=== PATIENT | female | born 1955 | race Caucasian/White ===

== ENCOUNTER 2023-08-18 12:41 | Outpatient (OUT) | payer MEDICARE, BC, SELFPAY ==
--- NOTE | 2023-08-18 13:23 | CA_ITS ---
Patient: MARIMAR MCDANIEL Exam Date: 08/18/2023 : 1955 Gender:F Ordering : DR PANCHITO TRINIDAD M.D. Admission #: [id number] Family : DR CHAMP CHRISTENSEN M.D. Order #: [id number] CLICK HERE TO VIEW EXAM ECHOCARDIOGRAM REPORT PROCEDURE: CA ECHO DOPPLER COMPLETE INDICATIONS: Aortic valve stenosis - TAVR, rheumatic mitral valve disease, CABGx4, hypertension, diabetes COMPARISON: None. DESCRIPTION: COMPLETE ECHOCARDIOGRAM Real-time transthoracic echocardiography with 2D, M-mode, spectral and color flow Doppler performed. QUALITY: Technical quality was good. LEFT VENTRICLE: Normal chamber size. Thickened septal wall. LV EF: Global left ventricular systolic function is normal; visually estimated ejection fraction is 55 to 60% DIASTOLIC: Diastolic function is indeterminate. ATRIAL SEPTUM: Visually appears intact. LEFT ATRIUM: Normal chamber size. RIGHT ATRIUM: Normal chamber size. RIGHT VENTRICLE: Normal chamber size. Normal right ventricular systolic function. TRICUSPID VALVE: Normal mobility and thickness. Mild regurgitation. Doppler studies reveal mildly (35-45) elevated right sided pressures. RVSP 40 mmHg MITRAL VALVE: Moderately thickened with decreased mobility. Mild mitral valve stenosis. Severe mitral annular calcification. Mild mitral regurgitation. AORTIC VALVE: TAVR appears well seated in the aortic position with normal Doppler flows. No aortic regurgitation. AORTIC ROOT: Normal diameter and appearance. PULMONIC VALVE: Normal thickness and mobility. No stenosis. Mild regurgitation. PERICARDIUM: No evidence of pericardial effusion. IVC: Collapses with inspirations. CONCLUSION: 1. Global left ventricular systolic function is normal diastolic function is indeterminate; visually estimated ejection fraction of 55 to 60% 2. The right ventricle is normal in size and systolic function 3. Diastolic function is indeterminate 4. Mild tricuspid regurgitation; mildly elevated right ventricular systolic pressure 5. Mild mitral stenosis; mild mitral regurgitation 6. A bioprosthetic (GUTIERREZ) aortic valve is seen with normal Doppler flows; no significant valvular or paravalvular regurgitation 7. Mild pulmonic regurgitation Adult Echocardiography Procedure Report Left Ventricle LVEDD (3.7 - 5.6 cm): 3.66 cm LVESD (2.2 - 4.0 cm): 1.94 cm LVIVS thickness (0.6 - 1.2 cm): 1.05 cm LVPW thickness (0.5 - 1.0 cm): 0.94 cm e': 0.10 m/s E - e': 14.46 LVOT Max Gradient: 6.53 mm[Hg] LVOT Area (cm2): 1.28 m/s Peak Velocity (LVOT): 1.28 m/s Mean Velocity (LVOT): 0.87 m/s LVOT Diameter 1.44 cm Left Atrium LA Volume Index (2D A2C): 34.42 ml/m2 Left Atrium Systolic Dimension: 4.13 cm Mitral Valve MV E to A Ratio: 1.43 Mitral Valve A-Wave Peak Velocity: 0.97 m/s Mitral Valve E-Wave Peak Velocity: 1.38 m/s Right Ventricle Aorta AO Root Diam: 2.95 cm Aortic Valve AoV Area (Peak Morgan): 1.03 cm2, 1.03 cm2 AoV Area (VTI): 1.10 cm2, 1.10 cm2 Peak Velocity(Antegrade Flow): 2.02 m/s Peak Gradient(Antegrade Flow): 16.24 mm[Hg] Mean Velocity(Antegrade Flow): 1.40 m/s Mean Gradient(Antegrade Flow): 8.70 mm[Hg] Velocity Time Integral: 49.31 cm Tricuspid Valve Peak Velocity (Regurgitant Flow): 2.72 m/s, 3.04 m/s Pulmonic Valve Peak Velocity: 1.14 m/s Peak Gradient: 5.33 mm[Hg], 5.15 mm[Hg] Right Atrium Right Atrium Systolic Pressure: 26.62 ml, 26.62 ml Dictated by: Hero Rendon M.D. on 08/18/2023 at 15:40 Approved by: Hero Rendon M.D. on 08/18/2023 at 15:46
== END 2023-08-18 12:42 | disposition home or self-care (01) ==
LOC: CARD 12:47
PROVIDERS: PCP Internal Medicine; Visit Provider Internal Medicine Interventional Cardiology
DX: I08.1 Rheumatic disorders of both mitral and tricuspid valves (principal); I37.1 Nonrheumatic pulmonary valve insufficiency
CPT/HCPCS: 93306

== ENCOUNTER 2023-12-03 11:37 | Outpatient (OUT) | payer MEDICARE, BC, SELFPAY ==
--- NOTE | 2023-12-03 13:45 | CA_ITS ---
[facility] Test Date: 2023-12-03 Pat Name: MARIMAR MCDANIEL Department: Room: - Gender: Female [employer]: [place] [facility] : 1955 Requested By: JAY GILMORE Order Number: [id number] Reading MD: LIZETTE MCGHEE Interpretive Statements Monophasic doppler waveform PVR waveform with delayed upstroke, blunted amplitude and loss of dicrotic notch in Left>right extremity Right: - significant pressure gradient between the thigh and calf cuff - significant pressure gradient between the calf and DP cuff - abnormal BRIDGER and TBI Left: - significant pressure gradient between the brachial and thigh cuff - absent readings of DP and PT indices of the LLE Impression: - elevated right thigh index, consistent with calcified, noncompressible arterial toussaint, which may underestimate the degree of arterial disease present. 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 (right BRIDGER 0.59) - significant left inflow (femoral artery or above) arterial disease with severe, limb threatening hemodynamic impairment of the left lower extremity at rest. (left BRIDGER 0) Electronically Signed On 12-04-2023 7:27:04 EST by LIZETTE MCGHEE
== END 2023-12-03 11:38 | disposition home or self-care (01) ==
LOC: CARD 11:37
PROVIDERS: PCP Internal Medicine
DX: I73.9 Peripheral vascular disease, unspecified (principal)
CPT/HCPCS: 93923

== ENCOUNTER 2024-02-08 12:15 | Observation (INO) | payer MEDICARE, BC, SELFPAY ==
[2024-02-08] VITALS (48 sets, daily range): BP systolic 68–106; BP diastolic 30–62; PULSE 50–65; TEMP 36.4–36.6; O2SAT 91–100; BMI 26.6; BMI 30.1
[2024-02-08 12:20] LABS: Glucometer 81 mg/dL (74-106)
--- OUTSIDE RECORDS SUMMARY | 2024-02-08 12:20 | XMS_ITS | CCD ---
Author Organization [facility] Care Team Providers Care Deputy Court Name Role Phone Geo Mathew Unavailable CHASE AMAYA Attending Unavailable UNKNOWN, PHYSICIAN Referring Unavailable NIK BELL Primary Care Unavailable ANDREW LOONEY Admitting Unavailable MONSE Bell Primary Care Provider MD Geo Mathew Attending Provider DR NIK BELL Primary Care Unavailable SHEPARD ., DR LARISSA Manriquez Admitting Unavailable SHEPARD ., DR LARISSA Manriquez Attending Unavailable SHEPARD ., DR LARISSA Manriquez Consulting Unavailable WEST, DR GORDON Cronin Consulting Unavailable ANNELIESE, DR GERMAIN Villaseñor Consulting Unavailable RODRIGO CARR Consulting Unavailable SHAIKH Meka CALVILLO Consulting Unavailable MISC, DR ROSADO Admitting Unavailable MISC, DR ROSADO Attending Unavailable RAY, DR OAKES Primary Care Unavailable ALEXIS GILMORE Admitting Unavailable ALEXIS GILMORE Attending Unavailable RAY, DR OAKES Primary Care Unavailable ALEXIS GILMORE Consulting Unavailable MOUKAANTONIETTA, DR FLANAGAN Admitting Unavailable MOUKAANTONIETTA, DR FLANAGAN Attending Unavailable RAY, DR OAKES Primary Care Unavailable MOUKAANTONIETTA, DR FLANAGAN Consulting Unavailable RAY, DR OAKES Admitting Unavailable RAY, DR OAKES Attending Unavailable RAY, DR OAKES Primary Care Unavailable RAY, DR OAKES Primary Care Unavailable PAY ., DR DÍAZ Admitting Unavailable PAY ., DR DÍAZ Attending Unavailable ANNELIESE, DR GERMAIN Villaseñor Consulting Unavailable PAY ., DR DÍAZ Consulting Unavailable KLYMCHANTAL Consulting Unavailable RAY, DR OAKES Primary Care Unavailable RODRIGO CARR Consulting Unavailable RODRIGO CARR Admitting Unavailable RODRIGO CARR Attending Unavailable RAY, DR OAKES Primary Care Unavailable PAY ., DR DÍAZ Admitting Unavailable PAY ., DR DÍAZ Attending Unavailable ANNELIESE, DR GERMAIN Villaseñor Consulting Unavailable PAY ., DR DÍAZ Consulting Unavailable BRYAN ., BRETT Consulting Unavailable SuhaSabrina Unavailable MONSE Bell Primary Care Provider MD Geo Mathew Attending Provider Geo Mathew Admitting UnavailGeo Ramirez Attending UnavailNik Argueta Primary Care Unavailable Geo Mathew Admitting UnavailGeo Ramirez Attending UnavailNik Argueta Primary Care Unavailable Nik Bell MD Primary Care Provider NAJENNIFER MUSTAFA Referring Unavailable AURE, ANDREW Admitting Unavailable JC FLETCHER Attending Unavailable ANABELLE RICH Attending Unavailable JC FLETCHER Referring Unavailable JC FLETCHER Referring Unavailable JENNIFER VACA Referring Unavailable ALEXIS GILMORE Attending Unavailable ALEXIS GILMORE Attending Unavailable NIK BELL Attending Unavailable ALEXIS GILMORE Attending Unavailable ALEXIS GILMORE Attending Unavailable Allergies Allergy Classification Reported Allergen(s) Allergy Type Date of Onset Reaction(s) Facility (1 source) [facility] [place] Other (5 sources) Penicillins; Translations: [PENICILLINS] Drug allergy (disorder) 09-20-2009 [facility] Repository (3 sources) Penicillin; Translations: [PENICILLIN] Drug Allergy 07-19-2022 [facility] Repository (1 source) Penicillins Drug allergy (disorder) 01-10-2023 [facility] Repository (2 sources) Penicillins Drug Allergy 10-28-2014 [facility] Medications Current Medications Medication Drug Class(es) Dates Sig (Normalized) Sig (Original) acetaminophen 325 mg / oxyCODONE hydrochloride 5 mg oral tablet (2 sources) Opioid Agonist Start: 12-09-2023 End: 12-14-2023 take 1 tablet by mouth every eight hours for pain oxyCODONE-acetam inophen (Percocet) 5-325 MG tablet Indications: Pain Take 1 tablet by mouth every 8 (eight) hours if needed for severe pain for up to 5 days 15 tablet 0 12/09/2023 12/14/2023 Active amLODIPine 5 mg oral tablet (7 sources) Dihydropyridine Calcium Channel Stuart Start: 01-13-2023 take 5 mg by mouth once daily Amlodipine Active 5 MG PO Daily January 13, 2023 1:00am take 1 tablet by mouth in the mo rning amLODIPine (Norvasc) 10 MG tablet Take 10 mg by mouth in the morning. 0 Active apixaban 5 mg oral tablet (6 sources) Factor Xa Inhibitor Start: 10-01-2023 take 1 tablet by mouth in the morning apixaban (Eliquis) 5 MG tablet Indications: Paroxysmal atrial fibrillation (CMS/HCC) Take 1 tablet (5 mg) by mouth in the morning and 1 tablet (5 mg) before bedtime. 200 tablet 1 10/01/2023 Active Start: 01-13-2023 take 1 tablet by west th twice daily Apixaban (Eliquis) 5 mg tablet Active 5 MG PO Twice daily January 13, 2023 1:00am aspirin 81 mg chewable tablet (6 sources) Platelet Aggregation Inhibitor, Nonsteroidal Anti-inflammatory Drug Start: 01-13-2023 take 81 mg by mouth once daily Aspirin Active 81 MG PO Daily January 13, 2023 1:00am Baby Aspirin Act renu atorvastatin 80 mg oral tablet (7 sources) HMG-CoA Reductase Inhibitor Start: 09-30-2023 take 1 tablet by mouth once daily atorvastatin (Lipitor) 80 MG tablet Indications: Mixed hyperlipidemia (CMS/HCC) TAKE 1 TABLET BY MOUTH EVERY DAY 100 tablet 3 09/30/2023 Active Start: 01-13-2023 take 80 mg by mouth once daily Atorvastatin Active 80 MG PO Daily January 13, 2023 1:00am carvedilol 25 mg oral tablet (6 sources) alpha-Adrenergic Stuart, beta-Adrenergic Stuart Start: 01-28-2023 take 1 tablet by mouth every twelve hours carvedilol (Coreg) 25 MG tablet Take 25 mg by mouth every 12 (twelve) hours. 0 01/28/2023 Active Start: 01-13-2023 take 25 mg by mouth twice yarely y Carvedilol Active 25 MG PO Twice daily January 13, 2023 1:00am citalopram 20 mg oral tablet (9 sources) Serotonin Reuptake Inhibitor Start: 09-16-2023 take 1 tablet by mouth once daily citalopram (CeleXA) 20 MG tablet Indications: Generalized anxiety disorder (CMS/HCC) TAKE 1 TABLET BY MOUTH ONCE DAILY 100 tablet 2 09/16/2023 Active Start: 01-13-2023 take 20 mg by mouth once daily Citalopram Active 20 MG PO Daily January 13, 2023 1:00am take 1 tablet by west th in the morning citalopram (CeleXA) 40 MG tablet Take 40 mg by mouth in the morning. 0 Active take 0.5 tablet by m outh every twenty-four hours Citalopram Hydrobromide 40 MG 0.5 tablet Orally Once a day Active dicyclomine hydrochloride 20 mg oral tablet (7 sources) Anticholinergic Start: 01-13-2023 take 20 mg by mouth three times daily Dicyclomine Active 20 MG PO Three times daily January 13, 2023 1:00am take 1 tablet by west th four times daily as needed dicyclomine (Bentyl) 20 MG tablet Take 2 0 mg by mouth 4 (four) times a day as needed. 0 Active ezetimibe 10 mg oral tablet (2 sources) Dietary Cholesterol Absorption Inhibitor take 1 tablet by mouth in the morning ezetimibe (Zetia) 10 MG tablet Take 10 mg by mouth in the morning. 0 Active ferrous sulfate 140 mg extended release oral tablet (6 sources) Start: 01-13-2023 take 140 mg by mouth once daily Ferrous Sulfate Active 140 MG PO Daily January 13, 2023 1:00am ferrous sulfate 325 (65 Fe) MG tablet Take 325 mg by mouth in the morning and 325 mg at noon and 325 mg in the evening. Take with meals. 0 Active Ferrous Sulfate Active furosemide 40 mg oral tablet (6 sources) Loop Diuretic Start: 01-13-2023 take 40 mg by mouth once daily Furosemide Active 40 MG PO Daily January 13, 2023 1:00am gabapentin 300 mg oral capsule (7 sources) Anti-epileptic Agent Start: 01-13-2023 take 300 mg by mouth once daily Gabapentin Active 300 MG PO Daily January 13, 2023 1:00am hydrALAZINE hydrochloride 100 mg oral tablet (4 sources) Arteriolar Vasodilator Start: 01-13-2023 take 100 mg by mouth twice daily Hydralazine Active 100 MG PO Twice daily January 13, 2023 1:00am 3 ml insulin glargine 100 unt/ml pen injector (5 sources) Insulin Analog Start: 11-14-2023 insulin glargi ne (Basaglar KwikPen) 100 UNIT/ML pen Indications: Type 2 diabetes mellitus with hyperglycemia, unspecified whether half-way insulin use (CMS/HCC) INJECT 86 UNITS UNDER THE SKIN AT AT BEDTIME 75 mL 3 11/14/2023 Active insulin glargine (Semglee) 100 UNIT/ML injection Inject 86 Units under the skin at bedtime. 0 Active Semglee 100 UNIT /ML as directed Subcutaneous Not-Taking 3 ml insulin, regular, human 100 unt/ml pen injector (7 sources) Insulin Start: 01-13-2023 inject 9 [IU] by subcutaneous injection three times daily Insulin Regular Human (Novolin R Flexpen) 100 unit/mL (3 mL) Insulin Pen Active 9 UNIT SUBCUT Three times daily January 13, 2023 1:00am Start: 10-24-2022 NovoLIN R 100 UNIT/ML injection Inject 20 mL under the skin in the morning. 0 10/24/2022 Active NovoLIN R 100 UN IT/ML as directed Injection Active lisinopril 20 mg oral tablet (7 sources) Angiotensin Converting Enzyme Inhibitor Start: 10-01-2023 take 1 tablet by mouth in the morning lisinopril 20 MG tablet Indications: Benign essential hypertension (CMS/HCC) Take 1 tablet (20 mg) by mouth in the morning. 100 tablet 3 10/01/2023 Active Start: 01-13-2023 take 20 mg by mouth once daily Lisinopril Active 20 MG PO Daily January 13, 2023 1:00am Ozempic (3 sources) Ozempic Active Ozempic, 1 MG/DOSE, 4 MG/3ML solution pen-injector (2 sources) inject 1 mg by subcutaneous injection every week Ozempic, 1 MG/DOSE, 4 MG/3ML solution pen-injector Inject 1 mg under the skin 1 (one) time per week. 0 Active microencapsulated potassium chloride 20 meq extended release oral tablet (7 sources) Start: 06-04-2023 take 1 tablet by mouth in the morning potassium chloride CR (Klor-Con M20) 20 MEQ ER tablet Indications: Benign essential hypertension (CMS/HCC) Take 1 tablet (20 mEq) by mouth in the morning. 90 tablet 0 06/04/2023 Active Start: 01-13-2023 take 20 mEq by mouth once yarely y Potassium Chloride Active 20 MEQ PO Daily January 13, 2023 1:00am Semaglutide (2 sources) Start: 01-13-2023 inject 1 mg by subcutaneous injection every week Semaglutide (Ozempic) 1 mg/dose (4 mg/3 mL) pen injector Active 1 MG SUBCUT every week January 13, 2023 1:00am Start: 01-13-2023 inject 1 mg by subcu taneous injection every week Semaglutide (Ozempic) 1 mg/dose (4 mg/3 mL) pen injector Active 1 MG SUBCUT every week January 13, 2023 12:00am spironolactone 25 mg oral tablet (5 sources) Aldosterone Antagonist take 1 tablet by mouth in the morning spironolactone (Aldactone) 25 MG tablet Take 25 mg by mouth in the morning. 0 Active Completed/Discontinued Medications Medication Drug Class(es) Dates Sig (Normalized) Sig (Original) Albuterol Sulfate (2.5 MG/ 3 ML) 2.5 MG/3ML 0.083% Nebulization Solution (3 sources) Albuterol Sulfat e (2.5 MG/ 3 ML) 2.5 MG/3ML 0.083% Nebulization Solution 3ml Inhalation 4 times a day Not-Taking Albuterol Sulfat e (2.5 MG/ 3 ML) 2.5 MG/3ML 0.083% Nebulization Solution 3ml Inhalation 4 times a day Active clopidogrel 75 mg oral tablet (3 sources) P2Y12 Platelet Inhibitor take 1 tablet by mouth every twenty-four hours Clopidogrel Bisulfate 75 MG 1 tablet Orally Once a day Not-Taking J-[id number]-[id number] 2 3-35-2 MG (3 sources) take 1 tablet by mouth twice daily V-Bilwmjihuqcl-J7-[id number] 2 3-35-2 MG 1 tablet Orally Twice a day Not-Taking LORazepam 0.5 mg oral tablet (3 sources) Benzodiazepine take 1 tablet by mouth every twenty-four hours LORazepam 0.5 MG 1 tablet at bedtime as needed Orally Once a day Not-Taking metoprolol tartrate 100 mg oral tablet (3 sources) beta-Adrenergic Stuart take 1 tablet by mouth every twelve hours Metoprolol Tartrate 100 MG 1 tablet with food Orally Twice a day Not-Taking ondansetron 4 mg oral tablet (3 sources) Serotonin-3 Receptor Antagonist take 1 tablet by mouth every twenty-four hours Ondansetron HCl 4 MG 1 tablet Orally Once a day Not-Taking Semglee 100 UNIT/ML (2 sources) Semglee 100 UNIT /ML as directed Subcutaneous Not-Taking WHEAT DEXTRIN (3 sources) Benefiber - as directed Orally Not-Taking Benefiber - as d irected Orally Active Problems Active Problems Problem Classification Problem Date Documented Da te Episodic/Chronic Acute myocardial infarction (2 sources) Non-ST elevation (NSTEMI) myocardial infarction; Translations: [NON-ST ELEVATION MYOCARDIAL INFARCT] Onset: 2 Chronic Anxiety disorders (2 sources) Generalized anxiety disorder; Translations: [Generalized anxiety disorder] Onset: 3 06-04-2023 Chronic Asthma (4 sources) Asthmatic bronchitis; Translations: [Unspecified asthma, uncomplicated] Onset: 8 06-24-2023 Chronic Cardiac dysrhythmias (3 sources) Unspecified atrial fibrillation; Translations: [Paroxysmal atrial fibrillation] Onset: 2 06-04-2023 Chronic Chronic ulcer of skin (7 sources) Non-pressure chronic ulcer of other part of left foot limited to breakdown of skin; Translations: [Non-pressure chronic ulcer of other part of left foot with fat layer exposed] Onset: 3 Chronic Complication of device; implant or graft (2 sources) Arteriosclerosis of arterial coronary artery bypass graft; Translations: [Atherosclerosis of coronary artery bypass graft(s) without angina pectoris] Onset: 3 06-24-2023 Chronic Congestive heart failure; nonhypertensive (3 sources) Acute combined systolic (congestive) and diastolic (congestive) heart failure; Translations: [Acute combined systolic and diastolic heart failure] Onset: 2 06-24-2023 Chronic Coronary atherosclerosis and other heart disease (3 sources) Atherosclerotic heart disease of [place] coronary artery without angina pectoris; Translations: [Coronary atherosclerosis] Onset: 3 06-04-2023 Chronic Coronary atherosclerosis and other heart disease (2 sources) Coronary atherosclerosis and other heart disease; Translations: [Atherosclerosis of [place] arteries of extremities with intermittent claudication, left leg] Onset: 3 Diabetes mellitus with complications (18 sources) Diabetes mellitus due to underlying condition with foot ulcer; Translations: [Type 2 diabetes mellitus with hyperglycemia] Onset: 1 Chronic Diabetes mellitus without complication (3 sources) Type 2 diabetes mellitus without complications; Translations: [Type 2 diabetes mellitus without complication] Onset: 3 06-24-2023 Chronic Disorders of lipid metabolism (3 sources) Pure hypercholesterolemia, unspecified; Translations: [Mixed hyperlipidemia] Onset: 2 06-04-2023 Chronic Diverticulosis and diverticulitis (2 sources) Diverticulosis of colon; Translations: [Diverticulosis of large intestine without perforation or abscess without bleeding] Onset: 0 06-04-2023 Chronic E Codes: Fall (1 source) Unspecified fall, initial encounter; Translations: [UNSPECIFIED FALL INITIAL ENCOUNTER] Onset: 3 Episodic Esophageal disorders (1 source) Gastro-esophageal reflux disease without esophagitis; Translations: [GERD WITHOUT ESOPHAGITIS] Onset: 2 Chronic Essential hypertension (3 sources) Essential (primary) hypertension; Translations: [Benign essential hypertension] Onset: 3 06-04-2023 Chronic Fluid and electrolyte disorders (2 sources) Hypo-osmolality and hyponatremia; Translations: [Hypo-osmolality and hyponatremia] Onset: 4 Episodic Gangrene (4 sources) Gangrenous disorder; Translations: [Gangrene, not elsewhere classified] Onset: 3 12-11-2023 Episodic Gastritis and duodenitis (2 sources) Atrophic gastritis; Translations: [Chronic atrophic gastritis without bleeding] Onset: 5 06-24-2023 Chronic Gout and other crystal arthropathies (2 sources) Chondrocalcinosis; Translations: [Other chondrocalcinosis, unspecified site] Onset: 3 06-24-2023 Chronic Headache; including migraine (2 sources) Migraine; Translations: [Migraine, unspecified, not intractable, without status migrainosus] Onset: 0 06-24-2023 Chronic Headache; including migraine (3 sources) Headache; including migraine; Translations: [HEADACHE UNSPECIFIED] Onset: 3 Heart valve disorders (7 sources) Nonrheumatic aortic (valve) stenosis; Translations: [Aortic stenosis, non-rheumatic ] Onset: 9 Chronic Hypertension with complications and secondary hypertension (1 source) Hypertensive heart disease with heart failure; Translations: [HTN HEART DISEASE W/HEART FAIL] Onset: 2 Chronic Infective arthritis and osteomyelitis (except that caused by tuberculosis or sexually transmitted disease) (4 sources) Infection of bone; Translations: [Osteomyelitis, unspecified] Onset: 3 06-24-2023 Chronic Menopausal disorders (2 sources) Decreased estrogen level; Translations: [Other primary ovarian failure] Onset: 7 06-24-2023 Chronic Osteoarthritis (1 source) Unspecified osteoarthritis, unspecified site; Translations: [UNSPECIFIED OSTEOARTHRITIS UNS SITE] Onset: 2 Chronic Other aftercare (1 source) [facility] (current) use of anticoagulants; Translations: [LEAD SYSTEMS ARCHITECT CURRNT USE ANTICOAGULANTS] Onset: 3 Episodic Other aftercare (1 source) Other half-way (current) drug therapy; Translations: [OTH GROUP HOME CURRENT DRUG THERAPY] Onset: 3 Episodic Other aftercare (1 source) [employer] (current) use of antithrombotics/antipl atelets; Translations: [LEAD SYSTEMS ARCHITECT ANTITHROMBOT/ANTIPLATL ETS] Onset: 3 Episodic Other aftercare (1 source) [facility] (current) use of insulin; Translations: [GROUP HOME CURRENT USE OF INSULIN] Onset: 3 Episodic Other aftercare (1 source) [facility] (current) use of aspirin; Translations: [GROUP HOME CURRENT USE OF ASPIRIN] Onset: 3 Episodic Other gastrointestinal disorders (2 sources) Irritable bowel syndrome; Translations: [Irritable bowel syndrome without diarrhea] Onset: 3 06-04-2023 Chronic Other injuries and conditions due to external causes (1 source) Other specified injuries of head, initial encounter; Translations: [OTH SPEC INJURIES HEAD INITIAL ENC] Onset: 3 Episodic Other nervous system disorders (2 sources) Anesthesia of skin; Translations: [Anesthesia of skin] Onset: 4 Episodic Other non-traumatic joint disorders (1 source) Pain in left wrist; Translations: [PAIN IN LEFT WRIST] Onset: 3 Episodic Peripheral and visceral atherosclerosis (16 sources) Peripheral vascular disease; Translations: [Peripheral vascular disease, unspecified] Onset: 1 Resolved: 1 Chronic Screening and history of mental health and substance abuse codes (1 source) Personal history of nicotine dependence; Translations: [PERSONAL HISTORY OF NICOTINE DEPEND] Onset: 3 Episodic Spondylosis; intervertebral disc disorders; other back problems (1 source) Pain in thoracic spine; Translations: [PAIN IN THORACIC SPINE] Onset: 3 Episodic Sprains and strains (2 sources) Unspecified sprain of left wrist, initial encounter; Translations: [Strain of muscle and tendon of back wall of thorax, initial encounter] Onset: 3 Episodic Unclassified (4 sources) CONTACT W/AND (SUSP) EXPOS COVID-19; Translations: [CONTACT W/AND (SUSP) EXPOS COVID-19] Onset: 2 Unclassified (2 sources) Hospital Follow-up; Translations: [Hospital Follow-up] Onset: 4 Viral infection (1 source) Disease caused by 2019-nCoV; Translations: [UNVACCINATED COVID 19] Onset: 2 Past or Other Problems Problem Classification Problem Date Documented Date Episodic/Chronic Bacterial infection; unspecified site (3 sources) Klebsiella pneumoniae [K. pneumoniae] as the cause of diseases classified elsewhere; Translations: [Staphylococcal infectious disease] Onset: 03-17-2013 06-24-2023 Episodic Complication of device; implant or graft (2 sources) Mechanical complication of musculoskeletal implant; Translations: [Other mechanical complication of other internal orthopedic devices, implants and grafts, initial encounter] Onset: 02-23-2013 06-24-2023 Episodic Complications of surgical procedures or medical care (2 sources) Dehiscence of surgical wound; Translations: [Disruption of external operation (surgical) wound, not elsewhere classified, initial encounter] Onset: 04-15-2013 06-24-2023 Episodic Coronary atherosclerosis and other heart disease (1 source) Presence of aortocoronary bypass graft; Translations: [PRESENCE AORTOCORONARY BYPASS GRAFT] Onset: 07-02-2022 Episodic Deficiency and other anemia (1 source) Iron deficiency anemia, unspecified; Translations: [IRON DEFICIENCY ANEMIA UNSPECIFIED] Onset: 07-10-2022 Episodic Nonspecific chest pain (5 sources) Chest pain, unspecified; Translations: [Chest pain] Onset: 12-29-2012 Episodic Other bone disease and musculoskeletal deformities (2 sources) Osteopenia; Translations: [Other specified disorders of bone density and structure, unspecified site] Onset: 06-04-2023 06-04-2023 Episodic Other connective tissue disease (2 sources) Pain in limb; Translations: [Pain in unspecified limb] Onset: 03-29-2010 06-24-2023 Episodic Other lower respiratory disease (3 sources) Shortness of breath; Translations: [SHORTNESS OF BREATH] Onset: 07-04-2022 Episodic Other lower respiratory disease (1 source) Hypoxemia; Translations: [HYPOXEMIA] Onset: 07-10-2022 Episodic Other nutritional; endocrine; and metabolic disorders (2 sources) Overweight; Translations: [Overweight] Onset: 06-23-2013 06-24-2023 Episodic Residual codes; unclassified (1 source) Patient's intentional underdosing of medication regimen for other reason; Translations: [PT INTENT UNDERDOS MED OTH REASON] Onset: 07-02-2022 Episodic Unclassified (1 source) CONTACT W/AND (SUSP) EXPOS COVID-19; Translations: [CONTACT W/AND (SUSP) EXPOS COVID-19] Onset: 07-21-2022 Urinary tract infections (1 source) Urinary tract infection, site not specified; Translations: [UTI SITE NOT SPECIFIED] Onset: 07-10-2022 Episodic Results Test Name Value Interpretation Reference Range Facility 36on 01-01-2024 36 Needs appt [facility] Follow-Upon 12-19-2023 Follow-Up [id number] Pancho Patel 1955 F Date Provider Department Center 12/19/2023 ANABELLE CLAUDIO [facility] Family History Problem Relation Age of Onset Diabetes Mother Cancer Mother Heart disease Father Alcohol abuse Brother Diabetes Brother Family Status - Relation Status Age at Mother Father Brother Level of Service:35961 [place] OFFICE/OUTPATIENT ESTABLISHED LOW MDM 20 MIN Reason for Visit and Comments: Hospital Follow-up [832] - 12/04/23 impatient PAD [facility] 30on 12-05-2023 30 Daily Case Managemen t Update Multidisciplinary rounds have been completed. Barriers to Discharge: ER Admit s/p abnormal ankle-brachial index with c/o numbness/tingling. s/p Angiogram on 12-04. BRIDGER ordered; pending. Will need PT OT order when medically cleared. From Home. Diet: Dietary Orders (From admission, onward) Start Ordered 12/04/23 1727 Regular Diet Heart Healthy/HTN, CABG,Stroke, (2gNA, low fat, low cholesterol) Diet effective now Question Answer Comment Room Service? Yes Fat restriction: Heart Healthy/HTN, CABG,Stroke, (2gNA, low fat, low cholesterol) 12/04/23 172 Physician Expected Discharge Date: 12/06/2023 Discharge Delays: PT Six Click Score: 13 OT Six Click Score: PT Recommendations: OT Recommendations: New Consults: Consult Orders (From admission, onward) Start Ordered 12/03/23 1813 Inpatient consult to Hospitalist Once Specialty: Internal Medicine Provider: (Not yet assigned) Question Answer Comment Consulting Group HOSPITALIST (ADMIT/FLOAT) Reason for Consult? pulseless LLE Level of Consultation Consultation Only 12/03/23 1812 Ancillary Consults (From admission, onward) Start Ordered 12/05/23 0236 Inpatient consult to Vascular Wound Care Once Provider: (Not yet assigned) Question Answer Comment Consulting Group WOUND CARE Reason for Consult? ball of foot and under toe wounds 12/05/23 0236 Normal [facility] BASIC METABOLIC PANELon 11-11 Anion gap [Moles/Vol] 7 mmol/L Normal 7-20 [facility] Comment on above: Performed By: #### L AB15 #### [facility] (BEAKER) [address] [place] [address] Calcium [Mass/Vol] 8.6 mg/dL Normal 8.6-10.3 [facility] Comment on above: Performed By: #### L AB15 #### [facility] (BEAKER) [address] [place] [address] Chloride [Moles/Vol] 105 mmol/L Normal 98-107 [facility] Comment on above: Performed By: #### L AB15 #### [facility] ([facility] [address] [place] [address] CO2 [Moles/Vol] 27 mmol/L Normal 21-31 [facility] Comment on above: Performed By: #### L AB15 #### [facility] ([facility]) [address] [place] [address] Creatinine [Mass/Vol] 0.97 mg/dL Normal 0.60-1.20 [facility] Comment on above: Performed By: #### L [id number] #### [facility] ([facility]) [address] [place] [address] GLOMERULAR FILTRATION RATE ML/MIN/1.73 SQ M.PREDICTED 63.3 mL/min/1.73m*2 Normal >60.0 [facility] Comment on above: Result Comment: The [facility]???s estimated glomerular filtration rate (eGFR) will no longer include consideration of race in its calculation. The National Kidney Foundation???s eGFR Task Force developed new recommendations for the estimation of the glomerular filtration rate in the [place] They recommend immediate implementation of the new equation refit without the race variable in all laboratories because the calculation does not include race. In addition to not including race in the calculation and reporting, it included diversity in its development, and has acceptable performance characteristics and potential consequences that do not disproportionately affect any one group of individuals. Performed By: #### L [id number] #### [facility] ([facility]) [address] [place] [address] Glucose [Mass/Vol] 192 mg/dL High 70-100 [facility] Comment on above: Performed By: #### L [id number] #### [facility] ([facility]) [address] [place] [address] Potassium [Moles/Vol] 4.1 mmol/L Normal 3.5-5.1 [facility] Comment on above: Performed By: #### L [id number] #### [facility] ([facility]) [address] [place] [address] Sodium [Moles/Vol] 135 mmol/L Low 136-145 [facility] Comment on above: Performed By: #### L [id number] #### [facility] ([facility]) [address] [place] [address] Urea nitrogen [Mass/Vol] 29 mg/dL High 7-25 [facility] Comment on above: Performed By: #### L [id number] #### [facility] ([facility]) [address] [place] [address] UREA NITROGEN/CREATININE (MASS RATIO) IN SER/PLAS 29.9 Normal [facility] Comment on above: Performed By: #### L [id number] #### [facility] ([facility]) [address] [place] [address] CBCon 12-05-2023 Erythrocyte distribution width (RBC) [Ratio] 13.5 % Normal 11.5-15.0 [facility] Comment on above: Performed By: #### L [id number] #### [facility] ([facility]) [address] [place] [address] ERYTHROCYTE MEAN CORPUSCULAR HEMOGLOBIN CONCENTRATION (G/DL) BY AUTOMATED 32.3 g/dL Normal 32.0-35.0 [facility] Comment on above: Performed By: #### L [id number] #### [facility] ([facility]) [address] [place] [address] Hematocrit (Bld) [Volume fraction] 30.0 % Low 36.0-48.0 [facility] Comment on above: Performed By: #### L [id number] #### [facility] ([facility]) [address] [place] [address] Hemoglobin (Bld) [Mass/Vol] 9.7 g/dL Low 12.0-15.0 [facility] Comment on above: Performed By: #### L [id number] #### [facility] ([facility]) [address] [facility] [place] [address] MCH (RBC) [Entitic mass] 28.6 pg Normal 27.0-33.0 [facility] Comment on above: Performed By: #### L [id number] #### [facility] ([facility]) [address] [place] [address] MCV (RBC) [Entitic vol] 88.5 fL Normal 82.0-98.0 [facility] Comment on above: Performed By: #### L [id number] #### [facility] ([facility]) [address] [place] [address] PLATELETS (10*3/UL) IN BLOOD AUTOMATED COUNT 182 10*3/uL Normal 150-400 [facility] Comment on above: Performed By: #### L [id number] #### [facility] ([facility]) [address] [place] [address] RBC (Bld) [#/Vol] 3.39 10*6/uL Low 3.80-5.00 [facility] Comment on above: Performed By: #### L [id number] #### [facility] ([facility]) [address] [place] [address] WBC (Bld) [#/Vol] 8.35 10*3/uL Normal 4.00-10.60 [facility] Comment on above: Performed By: #### L [id number] #### [facility] ([facility]) [address] [place] [address] NURSNOTEon 12-05-2023 NURSNOTE Patient IV removed a nd wheeled out to husbands truck at the main enterance Normal [facility] POCT GLUCOSE METER UNSOLICIT ED RESULTSon 12-05-2023 Glucose [Mass/Vol] 172 mg/dL High 70-105 [facility] Comment on above: Order Comment: Waive d Testing in the ED is performed under the ED CLIA certificate #[id number]. Result Comment: abantwan rbo Performed By: #### L [id number] #### [facility] ([facility]) [address] [place] [address] Glucose [Mass/Vol] 194 mg/dL High 70-105 [facility] Comment on above: Order Comment: Waive d Testing in the ED is performed under the ED CLIA certificate #[id number]. Result Comment: kret tin Performed By: #### L [id number] #### [facility] ([facility]) [address] [place] [address] APTTon 12-04-2023 ACTIVATED PARTIAL THROMBOPLASTIN TIME IN PPP BY COAGULATION ASSAY 152.0 Seconds Critically high 25.0-35.0 [facility] Comment on above: Result Comment: Clin ical significance of the APTT is questionable in the presence of heparin. Performed By: #### L [id number] #### [facility] ([facility]) [address] [place] [address] ACTIVATED PARTIAL THROMBOPLASTIN TIME IN PPP BY COAGULATION ASSAY 140.0 Seconds Critically high 25.0-35.0 [facility] Comment on above: Result Comment: Clin ical significance of the APTT is questionable in the presence of heparin. Performed By: #### L [id number] #### [facility] ([facility]) [address] [place] [address] BASIC METABOLIC PANELon 11-11 Anion gap [Moles/Vol] 10 mmol/L Normal 7-20 [facility] Comment on above: Performed By: #### L [id number] #### [facility] ([facility]) [address] [place] [address] Calcium [Mass/Vol] 9.6 mg/dL Normal 8.6-10.3 [facility] Comment on above: Performed By: #### L [id number] #### [facility] ([facility]) [address] [place] [address] Chloride [Moles/Vol] 101 mmol/L Normal 98-107 [facility] Comment on above: Performed By: #### L [id number] #### [facility] ([facility]) [address] [place] [address] CO2 [Moles/Vol] 24 mmol/L Normal 21-31 [facility] Comment on above: Performed By: #### L [id number] #### [facility] ([facility]) [address] [place] [address] Creatinine [Mass/Vol] 1.32 mg/dL High 0.60-1.20 [facility] Comment on above: Performed By: #### L [id number] #### [facility] ([facility]) [address] [place] [address] GLOMERULAR FILTRATION RATE ML/MIN/1.73 SQ M.PREDICTED 43.7 mL/min/1.73m*2 Low >60.0 [facility] Comment on above: Result Comment: The [facility]???s estimated glomerular filtration rate (eGFR) will no longer include consideration of race in its calculation. The National Kidney Foundation???s eGFR Task Force developed new recommendations for the estimation of the glomerular filtration rate in the [place] They recommend immediate implementation of the new equation refit without the race variable in all laboratories because the calculation does not include race. In addition to not including race in the calculation and reporting, it included diversity in its development, and has acceptable performance characteristics and potential consequences that do not disproportionately affect any one group of individuals. Performed By: #### L [id number] #### [facility] ([facility]) [address] [place] [address] Glucose [Mass/Vol] 268 mg/dL High 70-100 [facility] Comment on above: Performed By: #### L [id number] #### [facility] ([facility]) [address] [place] [address] Potassium [Moles/Vol] 4.5 mmol/L Normal 3.5-5.1 [facility] Comment on above: Performed By: #### L [id number] #### [facility] ([facility]) [address] [place] [address] Sodium [Moles/Vol] 130 mmol/L Low 136-145 [facility] Comment on above: Performed By: #### L [id number] #### [facility] ([facility]) [address] [place] [address] Urea nitrogen [Mass/Vol] 42 mg/dL High 7- [facility] Comment on above: Performed By: #### L [id number] #### [facility] ([facility]) [address] [place] [address] UREA NITROGEN/CREATININE (MASS RATIO) IN SER/PLAS 31.8 Normal [facility] Comment on above: Performed By: #### L [id number] #### [facility] ([facility]) [address] [place] [address] CBC WITH AUTO DIFFERENTIALon 12-04-2023 Basophils (Bld) [#/Vol] 0.04 10*3/uL Normal 0.00-0.20 [facility] Comment on above: Performed By: #### L [id number] #### [facility] ([facility]) [address] [place] [address] Basophils/100 WBC (Bld) 0.4 % Normal 0.0-1.0 [facility] Comment on above: Performed By: #### L [id number] #### [facility] ([facility]) [address] [place] [address] Eosinophils (Bld) [#/Vol] 0.18 10*3/uL Normal 0.00-0.50 [facility] Comment on above: Performed By: #### L [id number] #### [facility] ([facility]) [address] [place] [address] Eosinophils/100 WBC (Bld) 1.9 % Normal 0.0-6.0 [facility] Comment on above: Performed By: #### L [id number] #### [facility] ([facility]) [address] [place] [address] Erythrocyte distribution width (RBC) [Ratio] 13.4 % Normal 11.5-15.0 [facility] Comment on above: Performed By: #### L [id number] #### [facility] ([facility]) [address] [place] [address] ERYTHROCYTE MEAN CORPUSCULAR HEMOGLOBIN CONCENTRATION (G/DL) BY AUTOMATED 33.3 g/dL Normal 32.0-35.0 [facility] Comment on above: Performed By: #### L [id number] #### [facility] ([facility]) [address] [place] [address] Hematocrit (Bld) [Volume fraction] 30.6 % Low 36.0-48.0 [facility] Comment on above: Performed By: #### L [id number] #### [facility] ([facility]) [address] [place] [address] Hemoglobin (Bld) [Mass/Vol] 10.2 g/dL Low 12.0-15.0 [facility] Comment on above: Performed By: #### L [id number] #### [facility] ([facility]) [address] [facility] [place] [address] Immature granulocytes (Bld) [#/Vol] 0.02 10*3/uL Normal 0.00-0.20 [facility] Comment on above: Performed By: #### L [id number] #### [facility] ([facility]) [address] [place] [address] Immature granulocytes/100 WBC (Bld) 0.2 % Normal 0.0-1.0 [facility] Comment on above: Performed By: #### L [id number] #### [facility] ([facility]) [address] [place] [address] Lymphocytes (Bld) [#/Vol] 3.07 10*3/uL Normal 1.20-4.00 [facility] Comment on above: Performed By: #### L [id number] #### [facility] ([facility]) [address] [place] [address] Lymphocytes/100 WBC (Bld) 32.0 % Normal 20.0-45.0 [facility] Comment on above: Performed By: #### L [id number] #### [facility] ([facility]) [address] [place] [address] MCH (RBC) [Entitic mass] 29.1 pg Normal 27.0-33.0 [facility] Comment on above: Performed By: #### L [id number] #### [facility] ([facility]) [address] [address] MCV (RBC) [Entitic vol] 87.2 fL Normal 82.0-98.0 [facility] Comment on above: Performed By: #### L [id number] #### [facility] ([facility]) [address] [address] Monocytes (Bld) [#/Vol] 0.96 10*3/uL Normal 0.10-1.00 [facility] Comment on above: Performed By: #### L [id number] #### [facility] ([facility]) [address] [address] Monocytes/100 WBC (Bld) 10.0 % Normal 5.0-12.0 [facility] Comment on above: Performed By: #### L [id number] #### [facility] ([facility]) [address] [place] [address] Neutrophils (Bld) [#/Vol] 5.33 10*3/uL Normal 1.60-7.60 [facility] Comment on above: Performed By: #### L [id number] #### [facility] ([facility]) [address] [place] [address] Neutrophils/100 WBC (Bld) 55.5 % Normal 40.0-72.0 [facility] Comment on above: Performed By: #### L [id number] #### [facility] ([facility]) [address] [place] [address] NRBC (PER 100 WBCS) BY AUTOMATED COUNT 0.0 % Normal 0 [facility] Comment on above: Performed By: #### L [id number] #### [facility] ([facility]) [address] [place] [address] PLATELETS (10*3/UL) IN BLOOD AUTOMATED COUNT 207 10*3/uL Normal 150-400 [facility] Comment on above: Performed By: #### L [id number] #### [facility] ([facility]) [address] [place] [address] RBC (Bld) [#/Vol] 3.51 10*6/uL Low 3.80-5.00 [facility] Comment on above: Performed By: #### L [id number] #### [facility] ([facility]) [address] [place] [address] WBC (Bld) [#/Vol] 9.60 10*3/uL Normal 4.00-10.60 [facility] Comment on above: Performed By: #### L [id number] #### [facility] ([facility]) [address] [place] [address] CONSULTon 12-04-2023 CONSULT -- Attestation signed by Jennifer Vaca MD at 12/04/2023 1:00 PM Pt with severe pain left leg Has no pulses History of PVD Plan for angiogram and intervention Reason For Consult left leg critical limb ischemia Referring Provider: [facility] emergency department History Of Present Illness Marimar Patel is a 68 y.o. female presenting with Leg Pain. Patient is known to Dr. Betts who TAVR in September 2022. 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 At that time it was noted she also had total occlusion of the distal left SFA with reconstitution of the popliteal via profunda and three-vessel runoff to the lower extremity on the left. Cardiac history also significant for coronary artery bypass graft x 4 with 3 of the 4 grafts patent. She also has a history of A-fib on Eliquis, hypertension, and hyperlipidemia. 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 It is worse at night. She also reports significant pain in the toes. Past Medical History She has a past medical history of A-fib ([facility]), Aortic valve stenosis, Coronary artery disease, Diabetes mellitus ([facility]), Hypertension, and Peripheral vascular disease ([facility]). Surgical History She has a past surgical history that includes CTA chest w and/or wo IV contrast (06/29/2022); Hysterectomy; CTA chest w and/or wo IV contrast (07/12/2022); CTA abdomen pelvis w and/or wo IV contrast (07/12/2022); Cardiac surgery; Colon surgery; Appendectomy; Cholecystectomy; Hernia repair; and Eye surgery (Left). Family History Family History Problem Relation Name Age of Onset Diabetes Mother Cancer Mother Heart disease Father Alcohol abuse Brother Diabetes Brother Social History She reports that she has quit smoking. Her smoking use included cigarettes. She has never used smokeless tobacco. She reports that she does not drink alcohol and does not use drugs. Allergies Penicillin and Penicillins Medications (Not in a hospital admission) Active Hospital Medications Medication Dose Route Frequency Last Admin acetaminophen 650 mg oral q6h PRN atorvastatin 80 mg oral Daily calcium carbonate 500 mg oral Once carvedilol 25 mg oral BID with meals glucose 24 g oral q15 min PRN Or dextrose 50 % in water (D50W) 25 g intravenous q15 min PRN heparin (porcine) 25 Units/kg intravenous q6h PRN heparin 0-28 Units/kg/hr intravenous Continuous 18 Units/kg/hr at 12/03/231935 insulin aspart 0-20 Units subcutaneous Before meals & nightly insulin glargine 50 Units subcutaneous Nightly lactated Ringer's 75 mL/hr intravenous Continuous Review of Systems As stated in HPI Last Recorded Vitals Patient Vitals for the past 24 hrs: BP Temp Temp src Pulse Resp SpO2 Height Weight 12/03/232014 140/53 -- -- 62 25 95 % -- -- 12/03/232004 152/60 -- -- 63 15 98 % -- -- 12/03/23 1818 133/86 -- -- 58 21 96 % -- -- 12/03/23 1431 (!) 120/94 35.9 ???C (96.7 ???F) Temporal 55 17 99 % 1.575 m (5' 2 ) 72.6 kg (160 lb) Physical Exam Physical Exam Constitutional: Appearance: She is ill-appearing. HENT: Head: Normocephalic and atraumatic. Right Ear: External ear normal. Left Ear: External ear normal. Nose: Nose normal. No congestion. Mouth/Throat: Mouth: Mucous membranes are moist. Pharynx: Oropharynx is clear. Eyes: Conjunctiva/sclera: Conjunctivae normal. Pupils: Pupils are equal, round, and reactive to light. Cardiovascular: Rate and Rhythm: Normal rate and regular rhythm. Comments: Pulse Exam: RLE - Femoral: +1 - Pedal: monophasic signals LLE - Femoral: +1 - Pedal: Absent signals Motor-sensory intact Pulmonary: Effort: Pulmonary effort is normal. No respiratory distress. Abdominal: General: Abdomen is flat. Palpations: Abdomen is soft. Musculoskeletal: General: No swelling. Normal range of motion. Cervical back: Normal range of motion. Skin: General: Skin is warm. Capillary Refill: Capillary refill takes 2 to 3 seconds. Coloration: Skin is not jaundiced. Neurological: General: No focal deficit present. Mental Status: She is alert and oriented to person, place, and time. Psychiatric: Mood and Affect: Mood normal. Behavior: Behavior normal. Relevant Results Admission on 12/03/2023 Component Date Value Ref Range Status Sodium 12/03/2023 128 (L) 136 - 145 mmol/L Final Potassium 12/03/2023 5.1 3.5 - 5.1 mmol/L Final Chloride 12/03/2023 93 (L) 98 - 107 mmol/L Final CO2 12/03/2023 27 21 - 31 mmol/L Final BUN 12/03/2023 55 (H) 7 - 25 mg/dL Final Creatinine 12/03/2023 1.68 (H) 0.60 - 1.20 mg/dL Final Glucose 12/03/2023 274 (H) (more content not included)... Normal [facility] CONSULT -- Attestation signed by Bev Bradford MD at 12/04/2023 2:56 PM I personally saw and examined the patient on the same date of service as resident/fellow Dr. Spencer. I discussed the findings and therapeutic plan with the resident/fellow Dr. Spencer. I agree with the documentation, except for any edits/updates below. Teaching Physician's Revisions: Patient with history of CAD and bypass surgery. She is also status post TAVR in September 2022. She presented with critical limb ischemia and she is getting workup by the cardiology and vascular surgery for angiogram and possible intervention. Based on her current status, she denies any chest pain or chest discomfort and there is no heart failure symptoms or arrhythmia. She had a CABG in 2012. She will be moderate to high risk but not prohibitive to proceed with vascular intervention/surgery. Cardiology Consult Note Reason for Consult: left lower limb extremity ischemia HPI: Marimar Patel is a 68 y.o. female patient is presenting for left leg pain. Past medical history includes: CAD status post CABG 2012 [cath on 2021-3 of the 4 grafts patent] Stage D1 Severe Aortic Stenosis status post TAVR on 09/2022 PAD Afib on eliquis HTN HLD Patient is known to our cardiology team, Dr. Chacon, with a TAVR history in September 2022. 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 At that time it was noted she also had total occlusion of the distal left SFA with reconstitution of the popliteal via profunda and three-vessel runoff to the lower extremity on the left. Patient was seen by Dr. Chacon yesterday. She reported left leg pain of 2 months duration that has been worsening within the past week associated with black ulcer on the sole of her third toe. Pain is worse with movement and rest, described as burning, associated with mild weakness. Cardiology ROS: GENERAL: Denies fever, chills, night sweats, weight loss. CARDIOVASCULAR: Denies chest pain, exertional dyspnea, orthopnea/PND, lower extremity edema, palpitations, lightheadedness/dizzin ess, syncope. RESPIRATORY: Denies SOB, coughing, wheezing GI: Denies abdominal pain, nausea/vomiting. PSYCH: Denies anxiety. Past Medical History She has a past medical history of A-fib ([facility]), Aortic valve stenosis, Coronary artery disease, Diabetes mellitus ([facility]), Hypertension, and Peripheral vascular disease ([facility]). Surgical History She has a past surgical history that includes CTA chest w and/or wo IV contrast (06/29/2022); Hysterectomy; CTA chest w and/or wo IV contrast (07/12/2022); CTA abdomen pelvis w and/or wo IV contrast (07/12/2022); Cardiac surgery; Colon surgery; Appendectomy; Cholecystectomy; Hernia repair; and Eye surgery (Left). Social History She reports that she has quit smoking. Her smoking use included cigarettes. She has never used smokeless tobacco. She reports that she does not drink alcohol and does not use drugs. Family History Family History Problem Relation Name Age of Onset Diabetes Mother Cancer Mother Heart disease Father Alcohol abuse Brother Diabetes Brother Allergies Penicillin and Penicillins Medications (Not in a hospital admission) Last Recorded Vitals Patient Vitals for the past 24 hrs: BP Temp Temp src Pulse Resp SpO2 Height Weight 12/04/23 0639 126/50 -- -- 59 16 96 % -- -- 12/04/23 0554 132/50 -- -- 60 15 96 % -- -- 12/04/23 0509 (!) 123/49 -- -- 63 16 96 % -- -- 12/04/23 0424 133/81 -- -- 66 17 97 % -- -- 12/04/23 0339 141/61 -- -- 66 16 97 % -- -- 12/04/23 0254 115/90 -- -- 68 10 95 % -- -- 12/04/23 0209 (!) 141/49 -- -- 65 18 90 % -- -- 12/04/23 0124 (!) 134/47 -- -- 63 16 91 % -- -- 12/04/23 0039 145/56 -- -- 66 16 92 % -- -- 12/03/23 2354 130/65 -- -- 67 17 93 % -- -- 12/03/23 2310 (!) 165/92 -- -- 73 15 96 % -- -- 12/03/234 123/60 -- -- 68 18 95 % -- -- 12/03/232138 141/57 -- -- 70 18 92 % -- -- 12/03/232137 -- -- -- 68 16 91 % -- -- 12/03/232024 165/51 -- -- 65 17 99 % -- -- 12/03/232014 140/53 -- -- 62 25 95 % -- -- 12/03/232004 152/60 -- -- 63 15 98 % -- -- 12/03/23 1818 133/86 -- -- 58 21 96 % -- -- 12/03/23 1431 (!) 120/94 35.9 ???C (96.7 ???F) Temporal 55 17 99 % 1.575 m (5' 2 ) 72.6 kg (160 lb) Physical Examination: GENERAL: AOx3, in no acute distress. HEAD: Atraumatic, normocephalic. EYES: CRYSTAL, EOMI. NECK: No JVD present. CARDIAC: RRR. No murmur, rubs, or gallops. RESPIRATORY: CTAB, no increased effort of breathing. ABDOMEN: Soft, nontender, nondistended. EXTREMITIES: No lower extremity edema, peripheral pulses are 1+ bilaterally. NEURO: No focal deficits Relevant Lab Results (more content not included)... Normal [facility] OPNOTEon 12-04-2023 OPNOTE LEFT LOWER EXTREMITY ANGIOGRAM (L), AORTOGRAM, LEFT LOWER EXTREMITY JETSTREAM AND ATHERECTOMY/THROMBECOM Y, LEFT LOWER EXTREMITY DRUG COATED BALLOON ANGIOPLASTY OF SFA AND POLITEAL ARTERIES, LEFT LOWER EXTREMITY DISTAL SFA AND POPLITEAL COVERED STENTING Operative Note Date: 12/04/2023 Location: [facility] OR Name: Marimar Patel, : 1955, Diagnosis Pre-op Diagnosis * PAD (peripheral artery disease) (CMS/HCC) [I73.9] Post-op Diagnosis * PAD (peripheral artery disease) (CMS/HCC) [I73.9] Procedures LEFT LOWER EXTREMITY ANGIOGRAM 26945 - TX OFFICE/OUTPT VISIT,PROCEDURE ONLY AORTOGRAM 76179 - TX OFFICE/OUTPT VISIT,PROCEDURE ONLY LEFT LOWER EXTREMITY JETSTREAM AND ATHERECTOMY/THROMBECOM Y 05715 - TX OFFICE/OUTPT VISIT,PROCEDURE ONLY LEFT LOWER EXTREMITY DRUG COATED BALLOON ANGIOPLASTY OF SFA AND POLITEAL ARTERIES 43300 - TX OFFICE/OUTPT VISIT,PROCEDURE ONLY LEFT LOWER EXTREMITY DISTAL SFA AND POPLITEAL COVERED STENTING 92505 - TX OFFICE/OUTPT VISIT,PROCEDURE ONLY Surgeons * Jennifer Vaca - Primary Procedure Summary Anesthesia: General ASA: III Estimated Blood Loss: 20 mL Total IV Fluids: mL Drains: * None in log * Implants Type Name Action Serial No. Stent STENT,[id number] - [id number] - [id number] Implanted [id number] Staff: Trim Operator: Fercho Farrell RN; Tonja Kelly; Olvin Ley RN Scrub Person: Anabelle Wolf [employer]ycl[employer] Program Manager: Jaime Parekh CSA Indications: Marimar Patel is an 68 y.o. female who is having surgery for PAD (peripheral artery disease) ([facility]) [I73.9]. Patient presented with wrist pain and left lower extremity. She has known to be have vascular disease in the past. Evaluation showed evidence of acute possibly in the chronic ischemia of the left leg with rest pain and a small ulcer in the left foot secondary to a trauma. She was able to move the toes but she had numbness and severe pain. Presenting for angiogram possible intervention. CTA was done which showed occlusion of the superficial femoral artery. Procedure Details: The patient was seen in the preoperative area. The risks, benefits, complications, treatment options, non-operative alternatives, expected recovery and outcomes were discussed with the patient. The possibilities of reaction to medication, pulmonary aspiration, injury to surrounding structures, bleeding, recurrent infection, the need for additional procedures, failure to diagnose a condition, and creating a complication requiring transfusion or operation were discussed with the patient. The patient concurred with the proposed plan, giving informed consent. The site of surgery was properly noted/marked if necessary per policy. The patient has been actively warmed in preoperative area. Preoperative antibiotics have been ordered and given within 1 hours of incision. Venous thrombosis prophylaxis are not indicated. Patient is already on anticoagulation. Within the supine position both legs were prepped and draped in the usual fashion. Access was made to the right common femoral artery. Micro sheath and 6 [place] sheath were inserted. [place] flush catheter was placed in the abdominal aorta. Angiogram was done for the aorta and the iliac arteries. After that the catheter was placed in the contralateral external iliac artery angiogram was done for the left lower extremity. At this stage patient was given heparin. And then the 6 [place] sheath exchanged to a 7 [place] sheath with the tip in the superficial femoral artery. After that manipulations were done with catheter and a wire until managed to cross the occluded segment in the superficial femoral artery which included almost the distal half of the superficial femoral artery and the proximal part of the popliteal artery. After that the glide wire was exchanged to a 0.014 wire. This was followed by placing another wire which is a filter wire 5 mm and diameter and was not placed in the popliteal artery just before the bifurcation. After that a jetstream 2.1/3.00 was inserted over the wire and multiple passages were made cleaning the occluded segment and also part of the popliteal artery distally which was also occluded. Of note here the patient significant level of calcification down to the distal part even of the popliteal artery. Before inserting the filter dilatation of the distal popliteal artery and the tibioperoneal artery was done using coyote balloon 3 x 100. After that angiogram was done. And then at this stage a Lotronex balloon 4 x 220 and then 5 x 300 were inserted and dilated the whole popliteal artery and superficial femoral artery angiogram was done which revealed significant bleeding from the superficial femoral artery distal limb and the same balloon which is a 5 x 300 was reintroduced tamponaded the area for 5 minutes but the bleeding was persistent because of this inserted a [place] Viabahn 6 x 10 cm cover the stent followed b (more content not included)... Normal [facility] POCT GLUCOSE METER UNSOLICIT ED RESULTSon 12-04-2023 Glucose [Mass/Vol] 173 mg/dL High 70-105 [facility] Comment on above: Order Comment: Waive d Testing in the ED is performed under the ED CLIA certificate #[id number]. Result Comment: sbel air Performed By: #### L [id number] #### [facility] ([facility]) [address] [place] [address] Glucose [Mass/Vol] 176 mg/dL High 70-105 [facility] Comment on above: Order Comment: Waive d Testing in the ED is performed under the ED CLIA certificate #[id number]. Result Comment: czyd orc Performed By: #### L [id number] #### [facility] ([facility]) [address] [place] [address] Glucose [Mass/Vol] 284 mg/dL High 70-105 [facility] Comment on above: Order Comment: Waive d Testing in the ED is performed under the ED CLIA certificate #[id number]. Result Comment: spar [email or web address] Performed By: #### L [id number] #### [facility] ([facility]) [address] [place] [address] TROPONIN Ion 12-04-2023 Troponin I.cardiac [Mass/Vol] 0.02 ng/mL Normal 0.00-0.04 [facility] Comment on above: Performed By: #### L [id number] #### [facility] ([facility]) [address] [place] [address] APTTon 12-03-2023 ACTIVATED PARTIAL THROMBOPLASTIN TIME IN PPP BY COAGULATION ASSAY 35.8 Seconds High 25.0-35.0 [facility] Comment on above: Result Comment: Clin ical significance of the APTT is questionable in the presence of heparin. Performed By: #### L [id number] #### [facility] ([facility]) [address] [place] [address] BASIC METABOLIC PANELon -2 Anion gap [Moles/Vol] 13 mmol/L Normal 7-20 [facility] Comment on above: Performed By: #### L [id number] ####[facility] ([facility])[address] [place] [address] Calcium [Mass/Vol] 11.5 mg/dL High 8.6-10.3 [facility] Comment on above: Performed By: #### L [id number] ####[facility] ([facility])[address] [place] [address] Chloride [Moles/Vol] 93 mmol/L Low 98-107 [facility] Comment on above: Performed By: #### L [id number] ####[facility] ([facility])[address] [place] [address] CO2 [Moles/Vol] 27 mmol/L Normal 21-31 [facility] Comment on above: Performed By: #### L [id number] ####[facility] ([facility])[address] [place] [address] Creatinine [Mass/Vol] 1.68 mg/dL High 0.60-1.20 [facility] Comment on above: Performed By: #### L [id number] ####[facility] ([facility])[address] [place] [address] GLOMERULAR FILTRATION RATE ML/MIN/1.73 SQ M.PREDICTED 32.7 mL/min/1.73m*2 Low >60.0 [facility] Comment on above: Result Comment: The [facility]???s estimated glomerular filtration rate (eGFR) will no longer include consideration of race in its calculation. The National Kidney Foundation???s eGFR Task Force developed new recommendations for the estimation of the glomerular filtration rate in the [place] They recommend immediate implementation of the new equation refit without the race variable in all laboratories because the calculation does not include race. In addition to not including race in the calculation and reporting, it included diversity in its development, and has acceptable performance characteristics and potential consequences that do not disproportionately affect any one group of individuals. Performed By: #### L [id number] ####[facility] ([facility])[address] [place] [address] Glucose [Mass/Vol] 274 mg/dL High 70-100 [facility] Comment on above: Performed By: #### L [id number] ####[facility] ([facility])[address] [place] [address] Potassium [Moles/Vol] 5.1 mmol/L Normal 3.5-5.1 [facility] Comment on above: Performed By: #### L [id number] ####[facility] ([facility])[address] [place] [address] Sodium [Moles/Vol] 128 mmol/L Low 136-145 [facility] Comment on above: Performed By: #### L [id number] ####[facility] ([facility])[address] [place] [address] Urea nitrogen [Mass/Vol] 55 mg/dL High 7-25 [facility] Comment on above: Performed By: #### L [id number] ####[facility] ([facility])[address] [place] [address] UREA NITROGEN/CREATININE (MASS RATIO) IN SER/PLAS 32.7 Normal [facility] Comment on above: Performed By: #### L [id number] ####[facility] ([facility])[address] [place] [address] CBC WITH AUTO DIFFERENTIALon 12-03-2023 Basophils (Bld) [#/Vol] 0.05 10*3/uL Normal 0.00-0.20 [facility] Comment on above: Performed By: #### L [id number] #### [facility] ([facility]) [address] [place] [address] Basophils/100 WBC (Bld) 0.5 % Normal 0.0-1.0 [facility] Comment on above: Performed By: #### L [id number] #### [facility] ([facility]) [address] [place] [address] Eosinophils (Bld) [#/Vol] 0.21 10*3/uL Normal 0.00-0.50 [facility] Comment on above: Performed By: #### L [id number] #### [facility] ([facility]) [address] [place] [address] Eosinophils/100 WBC (Bld) 1.9 % Normal 0.0-6.0 [facility] Comment on above: Performed By: #### L [id number] #### [facility] ([facility]) [address] [place] [address] Erythrocyte distribution width (RBC) [Ratio] 13.2 % Normal 11.5-15.0 [facility] Comment on above: Performed By: #### L [id number] #### [facility] ([facility]) [address] [place] [address] ERYTHROCYTE MEAN CORPUSCULAR HEMOGLOBIN CONCENTRATION (G/DL) BY AUTOMATED 33.5 g/dL Normal 32.0-35.0 [facility] Comment on above: Performed By: #### L [id number] #### [facility] ([facility]) [address] [place] [address] Hematocrit (Bld) [Volume fraction] 34.6 % Low 36.0-48.0 [facility] Comment on above: Performed By: #### L [id number] #### [facility] ([facility]) [address] [place] [address] Hemoglobin (Bld) [Mass/Vol] 11.6 g/dL Low 12.0-15.0 [facility] Comment on above: Performed By: #### L [id number] #### [facility] ([facility]) [address] [place] [address] Immature granulocytes (Bld) [#/Vol] 0.03 10*3/uL Normal 0.00-0.20 [facility] Comment on above: Performed By: #### L [id number] #### [facility] ([facility]) [address] [place] [address] Immature granulocytes/100 WBC (Bld) 0.3 % Normal 0.0-1.0 [facility] Comment on above: Performed By: #### L [id number] #### [facility] ([facility]) [address] [place] [address] Lymphocytes (Bld) [#/Vol] 3.27 10*3/uL Normal 1.20-4.00 [facility] Comment on above: Performed By: #### L [id number] #### [facility] ([facility]) [address] [place] [address] Lymphocytes/100 WBC (Bld) 30.0 % Normal 20.0-45.0 [facility] Comment on above: Performed By: #### L [id number] #### [facility] ([facility]) [address] [place] [address] MCH (RBC) [Entitic mass] 28.3 pg Normal 27.0-33.0 [facility] Comment on above: Performed By: #### L [id number] #### [facility] ([facility]) [address] [place] [address] MCV (RBC) [Entitic vol] 84.4 fL Normal 82.0-98.0 [facility] Comment on above: Performed By: #### L [id number] #### [facility] ([facility]) [address] [place] [address] Monocytes (Bld) [#/Vol] 1.05 10*3/uL High 0.10-1.00 [facility] Comment on above: Performed By: #### L [id number] #### [facility] ([facility]) [address] [place] [address] Monocytes/100 WBC (Bld) 9.6 % Normal 5.0-12.0 [facility] Comment on above: Performed By: #### L [id number] #### [facility] ([facility]) [address] [place] [address] Neutrophils (Bld) [#/Vol] 6.28 10*3/uL Normal 1.60-7.60 [facility] Comment on above: Performed By: #### L [id number] #### [facility] ([facility]) [address] [place] [address] Neutrophils/100 WBC (Bld) 57.7 % Normal 40.0-72.0 [facility] Comment on above: Performed By: #### L [id number] #### [facility] ([facility]) [address] [place] [address] NRBC (PER 100 WBCS) BY AUTOMATED COUNT 0.0 % Normal 0 [facility] Comment on above: Performed By: #### L [id number] #### [facility] ([facility]) [address] [place] [address] PLATELETS (10*3/UL) IN BLOOD AUTOMATED COUNT 237 10*3/uL Normal 150-400 [facility] Comment on above: Performed By: #### L [id number] #### [facility] ([facility]) [address] [place] [address] RBC (Bld) [#/Vol] 4.10 10*6/uL Normal 3.80-5.00 [facility] Comment on above: Performed By: #### L [id number] #### [facility] ([facility]) [address] [place] [address] WBC (Bld) [#/Vol] 10.89 10*3/uL High 4.00-10.60 [facility] Comment on above: Performed By: #### L [id number] #### [facility] ([facility]) [address] [place] [address] CTA AORTA AND BILATERAL ILIO FEMORAL RUNOFF W AND/OR WO IV CONTRASTon 12-03-2023 CTA AORTA AND BILATERAL ILIOFEMORAL RUNOFF W AND/OR WO IV CONTRAST Indication: Numbness loss of pulses left foot. TECHNIQUE: Enhanced CTA of abdomen and pelvis with lower extremity runoff is performed utilizing 150 mL IV Omnipaque 350 contrast medium. Multiple 3-D maximum intensity projection images are rendered and reviewed. Automatic exposure control was utilized. Comparison is made to prior exam dated 07/02/2022. FINDINGS: Lung bases are clear. Solid organs are less well evaluated due to arterial phase of imaging. Fatty infiltration of liver is apparent. No worrisome liver lesion identified. The spleen is not enlarged. Adrenal glands, kidneys, and pancreas are not enlarged. Stomach is mildly dilated and filled with fluid. There is diffuse mural thickening of distal thoracic esophagus. Gastric antrum appears somewhat thickened on coronal images. No retroperitoneal lymphadenopathy appreciated. No free intra-abdominal air or fluid. Urinary bladder is mildly dilated. No colonic diverticula seen. Postsurgical changes and sigmoid colon noted. Bone windows show no definite worrisome lesion. The abdominal aorta is not dilated. There is a stent apparent within right renal artery origin. Calcification about both renal artery origins noted. High-grade stenosis suspected about proximal right single and 22 left main renal arteries. Small DUSTIN is patent. There is heavy calcification within the mid superior mesenteric artery with high-grade stenosis. Celiac artery appears patent. Heavy calcification within both common iliac arteries present moderate stenosis within both common iliac arteries noted. External iliac arteries appear patent. Moderate stenosis right femoral artery and distal right external iliac. Moderate stenosis right femoral artery with milder stenosis left femoral artery. Profunda appears prominent bilaterally. High-grade stenosis proximal left superficial femoral artery with multiple high-grade stenoses throughout its course. Superficial femoral artery occludes in its distal aspect. There is reconstitution of distal left popliteal artery which is predominantly occluded. High-grade stenosis of the tibioperoneal trunk on the left multiple high-grade stenoses throughout right superficial femoral artery right popliteal artery high-grade stenosis right tibioperoneal trunk. Heavy calcifications within arteries below the knee makes evaluation difficult. I cannot tell of the arteries below the knee are patent due to extensive calcification. Left peroneal appears patent to the ankle. IMPRESSION: 1. Mild distention of stomach with apparent antral mural thickening. 2. High-grade stenosis mid superior mesenteric artery due to calcific plaque. No evidence for ischemic bowel. 3. Two left and a single right renal arteries show apparent high-grade stenosis. 4. Moderate stenosis is apparent within both common iliac arteries and distal right external iliac artery. 5. Moderate stenosis right femoral artery. 6. Extensive high-grade stenoses throughout both superficial femoral arteries and popliteal arteries with occlusion of distal left superficial femoral artery. 7. High-grade stenoses and tibial peroneal trunk bilaterally. Vessels below the knee are so heavily calcified they are not well evaluated. Left peroneal appears to be patent to the ankle. Electronically signed: Gayle Quintanilla. 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 Patient states doctor set it up for her to get angioplasty. [facility] EDPROVon 12-03-2023 EDPROV HPI Chief Complaint Patient presents with ??? Leg Pain Patient states she had testing/labs done for her leg sores/pain. Patient states doctor set it up for her to get angioplasty. Pt is 68yo F with history of A-fib, CAD, DM, HTN, PVD. Pt states she had an outpt BRIDGER/TBIperformed today and they were unable to detect pulses in the left foot. Has some numbness in the foot as well. Denies swelling of the extremity. Has previous left Fem/Pop stent in the lt left, CABG x4. History provided by: Patient Luis Antonio Coma Scale Score: 15 Patient History Past Medical History: Diagnosis Date ??? A-fib (CMS/HCC) ??? Aortic valve stenosis ??? Coronary artery disease ??? Diabetes mellitus (CMS/HCC) ??? Hypertension ??? Peripheral vascular disease (CMS/HCC) Past Surgical History: Procedure Laterality Date ??? APPENDECTOMY ??? CARDIAC SURGERY ??? CHOLECYSTECTOMY ??? COLON SURGERY ??? CTA ABDOMEN PELVIS W AND/OR WO IV CONTRAST 07/12/2022 CT ABDOMEN PELVIS ANGIOGRAM W AND/OR WO IV CONTRAST RANDLE CONVERSION ??? CTA CHEST W AND/OR WO IV CONTRAST 06/29/2022 CT CHEST ANGIOGRAM W AND/OR WO IV CONTRAST RANDLE CONVERSION ??? CTA CHEST W AND/OR WO IV CONTRAST 07/12/2022 CT CHEST ANGIOGRAM W AND/OR WO IV CONTRAST RANDLE CONVERSION ??? EYE SURGERY Left ??? HERNIA REPAIR ??? HYSTERECTOMY Family History Problem Relation Name Age of Onset ??? Diabetes Mother ??? Cancer Mother ??? Heart disease Father ??? Alcohol abuse Brother ??? Diabetes Brother Social History Tobacco Use ??? Smoking status: Former Types: Cigarettes ??? Smokeless tobacco: Never Vaping Use ??? Vaping Use: Never used Substance Use Topics ??? Alcohol use: Never ??? Drug use: Never Review of Systems Review of Systems Constitutional: Negative. HENT: Negative for congestion. Respiratory: Negative for shortness of breath. Cardiovascular: Negative for chest pain and leg swelling. Gastrointestinal: Negative for abdominal pain. Endocrine: Negative. Genitourinary: Negative for dysuria. Musculoskeletal: Negative for back pain. Allergic/Immunologic: Negative. Neurological: Negative for syncope. Hematological: Negative. Physical Exam ED Triage Vitals [12/03/23 1431] Temp Heart Rate Resp BP 35.9 ???C (96.7 ???F) 55 17 (!) 120/94 SpO2 Temp Source Heart Rate Source Patient Position 99 % Temporal Monitor Sitting BP Location FiO2 (%) Left arm -- Physical Exam Constitutional: General: She is not in acute distress. Appearance: Normal appearance. She is not ill-appearing, toxic-appearing or diaphoretic. HENT: Head: Normocephalic and atraumatic. Nose: Nose normal. Mouth/Throat: Mouth: Mucous membranes are moist. Pharynx: Oropharynx is clear. Eyes: Pupils: Pupils are equal, round, and reactive to light. Cardiovascular: Rate and Rhythm: Normal rate and regular rhythm. Pulses: Posterior tibial pulses are 1+ on the right side. Heart sounds: Normal heart sounds. Comments: LLE- no palpable pedal pulses. Scattered scabbed sores on foot. No swelling present. Decreased sensation to lateral, medial and plantar surfaces. No sensation on dorsum of foot. Motor function intact. Pulmonary: Effort: Pulmonary effort is normal. Breath sounds: Normal breath sounds. Abdominal: Palpations: Abdomen is soft. Tenderness: There is no abdominal tenderness. Musculoskeletal: Cervical back: Normal range of motion and neck supple. Right lower leg: No edema. Left lower leg: No edema. Skin: General: Skin is warm. Capillary Refill: Capillary refill takes less than 2 seconds. Neurological: Mental Status: She is alert and oriented to person, place, and time. Procedures ED Course & MDM ED Course as of 12/03/231811Dec 03, 2023 1636 Discussed case with Vascular Surgery and Cardiology (by request), both will consult. [BM] ED Course User Index [BM] Mark Gaines NP Diagnoses as of 12/03/231811 Numbness of left lower extremity Hyponatremia Medical Decision Making Attestion Mark Gaines NP 12/03/23 1649 Normal [facility] HEMOGLOBIN A1Con 12-03-2023 Glucose [Mass/Vol] 252 mg/dL [facility] Comment on above: Performed By: #### L [id number] #### [facility] ([facility]) [address] [place] [address] HbA1c (Bld) [Mass fraction] 10.4 % High 4.0-6.0 [facility] Comment on above: Performed By: #### L [id number] #### [facility] ([facility]) [address] [place] [address] HPon 12-03-2023 HP History Of Present Illness Marimar Patel is a 68 y.o. female with extensive past medical history including coronary artery disease s/p quadruple bypass, peripheral vascular disease, insulin-dependent type 2 diabetes, paroxysmal atrial fibrillation presented to the emergency department due to left lower extremity pain at rest as well as to dry wounds that she noticed. Patient said that she had outpatient ankle-brachial index done and was told that she has decreased blood supply and was sent to the emergency department. Patient said that for last several months she has been noticing significant pain around her left which gets worse at night. She also noticed to wounds 1 between the toes 1 on the bottom of her feet as well as 1 on the right side of the ankle. Patient denies any fever, chills, abdominal pain nausea or vomiting Past Medical History She has a past medical history of A-fib (CMS/HCC), Aortic valve stenosis, Coronary artery disease, Diabetes mellitus (CMS/HCC), Hypertension, and Peripheral vascular disease (CMS/HCC). Surgical History She has a past surgical history that includes CTA chest w and/or wo IV contrast (06/29/2022); Hysterectomy; CTA chest w and/or wo IV contrast (07/12/2022); CTA abdomen pelvis w and/or wo IV contrast (07/12/2022); Cardiac surgery; Colon surgery; Appendectomy; Cholecystectomy; Hernia repair; and Eye surgery (Left). Social History She reports that she has quit smoking. Her smoking use included cigarettes. She has never used smokeless tobacco. She reports that she does not drink alcohol and does not use drugs. Family History Family History Problem Relation Name Age of Onset Diabetes Mother Cancer Mother Heart disease Father Alcohol abuse Brother Diabetes Brother Allergies Penicillin and Penicillins Medications (Not in a hospital admission) Review of Systems Constitutional: Negative for chills and fever. HENT: Negative for trouble swallowing and voice change. Eyes: Negative for redness. Respiratory: Negative for chest tightness and shortness of breath. Cardiovascular: Negative for palpitations and leg swelling. Gastrointestinal: Negative for abdominal pain and diarrhea. Endocrine: Negative. Genitourinary: Negative for dysuria. Musculoskeletal: Right heel pain/claudication Skin: Negative for rash. Neurological: Negative for weakness, numbness and headaches. Hematological: Does not bruise/bleed easily. Psychiatric/Behavioral : Negative for decreased concentration and sleep disturbance. The patient is not hyperactive. Last Recorded Vitals Visit Vitals BP 140/53 Pulse 62 Temp 35.9 ???C (96.7 ???F) (Temporal) Resp 25 Ht 1.575 m (5' 2 ) Wt 72.6 kg (160 lb) SpO2 95% BMI 29.26 kg/m??? OB Status Postmenopausal Smoking Status Former BSA 1.78 m??? Physical Exam Constitutional: Appearance: Normal appearance. She is normal weight. HENT: Head: Normocephalic and atraumatic. Nose: Nose normal. No congestion. Mouth/Throat: Mouth: Mucous membranes are moist. Eyes: General: No scleral icterus. Extraocular Movements: Extraocular movements intact. Pupils: Pupils are equal, round, and reactive to light. Cardiovascular: Rate and Rhythm: Normal rate and regular rhythm. Pulses: Normal pulses. Pulmonary: Effort: Pulmonary effort is normal. Breath sounds: Normal breath sounds. Abdominal: General: Abdomen is flat. Palpations: Abdomen is soft. Tenderness: There is no abdominal tenderness. Musculoskeletal: General: No tenderness. Normal range of motion. Cervical back: Normal range of motion. No rigidity or tenderness. Right lower leg: No edema. Left lower leg: No edema. Skin: General: Skin is warm and dry. Findings: Lesion (Right lower extremity plantar surface dry scabby wound, dry scabbing wound with blackish discoloration between toes) present. No bruising or rash. Neurological: General: No focal deficit present. Mental Status: She is alert. Gait: Gait normal. Psychiatric: Mood and Affect: Mood normal. Relevant Lab Results Lab Results Component Value Date NA 128 (L) 12/03/2023 K 5.1 12/03/2023 CL 93 (L) 12/03/2023 CO2 27 12/03/2023 BUN 55 (H) 12/03/2023 CREATININE 1.68 (H) 12/03/2023 GLUCOSE 274 (H) 12/03/2023 CALCIUM 11.5 (H) 12/03/2023 ANIONGAP 13 12/03/2023 EGFR 32.7 (L) 12/03/2023 BCR 32.7 12/03/2023 Component Latest Ref Rng & Units 12/03/2023 Auto WBC 4.00 - 10.60 10*3/uL 10.89 (H) RBC 3.80 - 5.00 10*6/uL 4.10 Hemoglobin 12.0 - 15.0 g/dL 11.6 (L) Hematocrit 36.0 - 48.0 % 34.6 (L) MCV 82.0 - 98.0 fL 84.4 MCH 27.0 - 33.0 pg 28.3 MCHC 32.0 - 35.0 g/dL 33.5 RDW 11.5 - 15.0 % 13.2 Neutrophils Relative 40.0 - 72.0 % 57.7 Lymphocytes Relative 20.0 - 45.0 % 30.0 Monocytes Relative 5.0 - 12.0 % 9.6 Eosinophils Relative 0.0 - 6.0 % 1.9 Basophils Relative 0.0 - 1.0 % 0.5 Neutrophils Absolute 1.60 - 7.60 10*3/uL 6.28 (more content not included)... Normal [facility] POCT GLUCOSE METER UNSOLICIT ED RESULTSon 12-03-2023 Glucose [Mass/Vol] 337 mg/dL High 70-105 [facility] Comment on above: Order Comment: Waive d Testing in the ED is performed under the ED CLIA certificate #[id number]. Result Comment: spar k20 Performed By: #### L [id number] ####[facility] (HOMER)[address] [place] [address] PROTIME-INRon 12-03-2023 INR IN PPP BY COAGULATION ASSAY 1.24 High 0.90-1.10 [facility] Comment on above: Result Comment: ACCC P RECOMMENDED INR FOR WARFARIN THERAPY CONDITION INR PROPHYLAXIS OF VENOUS THROMBOSIS 2-3 (HIGH-RISK SURGERY) TREATMENT OF VENOUS THROMBOSIS 2-3 TREATMENT OF PULMONARY EMBOLISM 2-3 PREVENTION OF SYSTEMIC EMBOLISM: 2-3 ACUTE MYOCARDIAL INFARCTION TISSUE HEART VALVES VALVULAR HEART DISEASE ATRIAL FIBRILLATION RECURRENT SYSTEMIC EMBOLISM MECHANICAL HEART VALVE 2.5-3.5 FROM: ORAL ANTICOAGULANTS. MECHANISM OF ACTION, CLINICAL EFFECTIVENESS, AND OPTIMAL THERAPEUTIC RANGE. CHEST 1995;108:231S-246S. Performed By: #### L [id number] #### [facility] (BEMAGNOLIA) [address] [place] [address] PROTHROMBIN TIME (PT) IN PPP BY COAGULATION ASSAY 15.7 Seconds High 12.3-14.8 [facility] Comment on above: Performed By: #### L [id number] #### [facility] (BEM[facility]OLIA) [address] [place] [address] Telephoneon 10-29-2023 Telephone [phone] Pancho Patel 1955 F Date Provider Department Center 10/29/2023 [id number] VILLANUEVA [facility] [place] [facility] Family History Problem Relation Age of Onset Diabetes Mother Cancer Mother Heart disease Father Alcohol abuse Brother Diabetes Brother Family Status - Relation Status Age at Mother Father Brother Normal [facility] US UNI ankle/arm indiceson 0 02-24-2023 US UNI ankle/arm indices [facility] Main [place] [address] [place] [id number] Ultrasound Report Signed Patient: Marimar Patel MR#: [id number] 525 : 1955 Acct:[id number] Age/Sex: 67 / F ADM Date: 02/19/23 Loc: [facility] Room: Type: [facility] CLI Attending Dr: Geo Mathew MD Ordering Provider: Geo Mathew MD Date of Service: 02/19/23 US/US UNI ankle/arm indices: I70.212 Copies to: Geo Mathew MD LOWER EXTREMITY SEGMENTAL ARTERIAL DOPSCAN (PVR) INDICATION: Left lower extremity BRIDGER surveillance study for known PAD. PROCEDURE: Right arm blood pressure is 113 , left is 114 . Pressures at the left ankle are 113 using the posterior tibial artery, and 100 with ankle-brachial index of 0.99 0.88 . Wave forms by plethysmography are normal. US/US UNI ankle/arm indices IMPRESSION: NO HEMODYNAMICALLY SIGNIFICANT PERIPHERAL VASCULAR OCCLUSIVE DISEASE AT REST IN EITHER LOWER EXTREMITY. Impression dictated by: Geo Mathew MD02/24/2023 3:16 PM Dictation Location: [facility]-04 Tech: Ale Lim Transcribed By: [facility] 02/24/23 151 Dictated By: Geo Mathew MD 02/24/23 1515 Signed By: 02/24/23 [address] [facility] [address] STROKE HEAD WOon 02-01-20 CT STROKE HEAD WO HEAD CT WITHOUT CONTRAST: 01/31/2023 12:10 PM EDT Clinical Data: Pain Comparison: 03/28/2016 Unenhanced axial data from base to vertex. INTRA-AXIAL: No acute hemorrhage. No acute infarction is evident. EXTRA-AXIAL: No acute hemorrhage. No focal fluid collection. BRAIN VOLUME: No interval change VENTRICLES: No hydrocephalus PARANASAL SINUSES: No air-fluid levels in the included aspects. MASTOIDS: Clear. CALVARIUM: No acute finding. EXTRACALVARIAL: No acute findings IMPRESSION: 1. No evidence of acute intracranial process on this unenhanced study as described. All CT scans at this facility use dose modulation, iterative reconstruction, and/or weight based dosing when appropriate to reduce radiation dose to as low as reasonably achievable. Electronically authenticated by: CHANTAL KILLIAN Date: 2023-01-31 12:[address] [facility] 36on 01-28-2023 36 Lmom for patient to call to schedule appt Normal [facility] 36on 01-22-2023 36 Hi. I am not sure of your process yet with refilling medications Normal [facility] Refillon 01-21-2023 Refill [phone] Pancho Patel ie L 1955 F Date Provider Department Center 01/21/2023 [id number] AGUILAR HVCVASENDO [place] [facility] Family History Problem Relation Age of Onset Diabetes Mother Cancer Mother Heart disease Father Alcohol abuse Brother Diabetes Brother Family Status - Relation Status Age at Mother Father Brother Reason for Visit and Comments: Med Refill [[id number]] Normal [facility] Blood Urea Nitrogenon 2022 Urea nitrogen [Mass/Vol] 48 mg/dL High 9-23 [facility] Comment on above: Performed By: #### C REAT, BUN #### [facility] [address] [place] [address] [place] Creatinineon 01-13-2023 Creatinine [Mass/Vol] 1.75 mg/dL High 0.44-1.03 [facility] Comment on above: Performed By: #### C REAT, BUN #### [facility] [address] [place] [address] Creatinine Clr Calc Pharmacy 27.91 [facility] Comment on above: Result Comment: PERF ORMED BY: [place] [id number] PATHOLOGIST SCOURING PADS SUPERVISOR FAHAD ASKEW M.D. Performed By: #### C REAT, BUN #### [facility] [address] [place] [address] Estimated GFR ( [place] [facility] Comment on above: Result Comment: GFR estimated reference range: According to KDOQI guidelines, <60 ml/min/1.73m2 is sufficient to diagnose a patient with chronic kidney disease. Performed By: #### C REAT, BUN #### [facility] [address] [place] [address] [place] Estimated GFR (Non- Am 29 Normal [facility] Comment on above: Performed By: #### C REAT, BUN #### [facility] [address] Creatinine and Glomerular fi ltration rate.predicted panel (S/P/Bld)Ordered By: Geo Mathew on 01-13-2023 Creatinine [Mass/Vol] 1.75 mg/dL 0.44-1.03 [facility] Estimated glomerular filtrat ion rate (GFR) non- AmericanOrdered By: Geo Mathew on 01-13-2023 GFR/1.73 sq M.predicted among non-blacks MDRD (S/P/Bld) [Vol rate/Area] 29 mL/Min [facility] No Panel InformationOrdered By: Geo Mathew on 01-13-2023 Estimated GFR () 35 mL/Min [facility] Comment on above: GFR estimated refere nce range: According to KDOQI guidelines, <60 ml/min/1.73m2 is sufficient to diagnose a patient with chronic kidney disease. Pharmacy Creatinine Clearance (Chem 27.91 [facility] Urea nitrogen [Mass/volume] in Serum or PlasmaOrdered By: Geo Mathew on 01-13-2023 Urea nitrogen [Mass/Vol] 48 mg/dL 9 [facility] ALBUMINon 08-17-2022 Albumin [Mass/Vol] 3.5 g/dL Normal 3.4-5.0 [facility] Comment on above: Performed By: #### B MP, PREALB, ALB ####[facility] [address] [place] [address]DrIndu Sruthi Hawk CBC AUTO DIFFon 08-17-2022 BASO # 0.0 103/ul Normal 0.0-0.[address] [facility] Comment on above: Performed By: #### C BC #### [facility] [address] [place] [address] [address] Sruthi Arechiga Basophils/100 WBC (Bld) 0.5 % Normal 0.2-2.[address] [facility] Comment on above: Performed By: #### C BC #### [facility] [address] [place] [address] Dr. Sruthi Arechiga EO # 0.3 103/ul Normal 0.0-0.7 [facility] Comment on above: Performed By: #### C BC #### [facility] [address] [place] [address] Dr. Sruthi Arechiga Eosinophils/100 WBC (Bld) 3.6 % Normal 0.9-7.[address] [facility] Comment on above: Performed By: #### C BC #### [facility] [address] [place] [address] Dr. Sruthi Arechiga Erythrocyte distribution width (RBC) [Ratio] 14.5 % Normal 11.0-15.[address] [facility] Comment on above: Performed By: #### C BC #### [facility] [address] [place] [address] Dr. Sruthi Arechiga Hematocrit (Bld) [Volume fraction] 37.7 % Normal 36.0-48.[address] [facility] Comment on above: Performed By: #### C BC #### [facility] [address] [place] [address] Dr. Sruthi Arechiga Hemoglobin (Bld) [Mass/Vol] 11.9 g/dL Critically low 12.0-16.[address] [facility] Comment on above: Performed By: #### C BC #### [facility] [address] [place] [address] Dr. Sruthi Arechiga IG # 0.02 10e3/ul Normal 0.00-0.03 [facility] Comment on above: Performed By: #### C BC #### [facility] [address] [place] [address] Dr. Sruthi Arechiga IG % 0.2 % Normal 0.0-0.5 [facility] Comment on above: Performed By: #### C BC #### [facility] [address] [place] [address] Dr. Sruthi Arechiga LYMPH # 2.7 103/ul Normal 1.2-3.[address] [facility] Comment on above: Performed By: #### C BC #### [facility] [address] [place] [address] Dr. Sruthi Arechiga Lymphocytes/100 WBC (Bld) 32.2 % Normal 20.5-60.[address] [facility] Comment on above: Performed By: #### C BC #### [facility] [address] [place] [address] Dr. Sruthi Arechiga MANUAL DIFF REQ NO Normal [facility] Comment on above: Performed By: #### C BC #### [facility] [address] [place] [address] Dr. Sruthi Arechiga MCH (RBC) [Entitic mass] 26.8 pg Normal 26.7-34.[address] [facility] Comment on above: Performed By: #### C BC #### [facility] [address] [place] [address] Dr. Sruthi Arechiga MCHC (RBC) [Mass/Vol] 31.6 g/dL Normal 29.9-35.2 [facility] Comment on above: Performed By: #### C BC #### [facility] [address] [place] [address] Dr. Sruthi Arechiga MCV (RBC) [Entitic vol] 84.9 fL Normal 81.0-99.[address] [facility] Comment on above: Performed By: #### C BC #### [facility] [address] [place] [address] Dr. Sruthi Arechiga MONO # 0.8 103/ul Normal 0.3-0.8 [facility] Comment on above: Performed By: #### C BC #### [facility] [address] [place] [address] Dr. Sruthi Arechiga Monocytes/100 WBC (Bld) 9.6 % Normal 1.7-12.[address] [facility] Comment on above: Performed By: #### C BC #### [facility] [address] [place] [address] Dr. Sruthi Arechiga NEUT # 4.5 103/ul Normal 1.4-6.[address] [facility] Comment on above: Performed By: #### C BC #### [facility] [address] [place] [address] Dr. Sruthi Arechiga Neutrophils/100 WBC (Bld) 53.9 % Normal 43.0-75.[address] [facility] Comment on above: Performed By: #### C BC #### [facility] [address] [place] [address] Dr. Sruthi Arechiga Platelet mean volume (Bld) [Entitic vol] 10.8 fL Normal 9.5-13.[address] [facility] Comment on above: Performed By: #### C BC #### [facility] [address] [place] [address] Dr. Sruthi Arechiga PLT 246 103/ul Normal 150-450 [facility] Comment on above: Performed By: #### C BC #### [facility] [address] [place] [address] Dr. Sruthi Arechiga RBC 4.44 106/ul Normal 4.20-5.40 [facility] Comment on above: Performed By: #### C BC #### [facility] [address] [place] [address] Dr. Sruthi Arechiga WBC 8.4 103/ul Normal 4.0-11.0 [facility] Comment on above: Performed By: #### C BC #### [facility] [address] [place] [address] Dr. Sruthi Arechiga [facility]on SARS-CoV-2 (COVID-19) RNA KOLE+probe Ql (Unsp spec) Not detected Normal NOT DETECTED [facility] Comment on above: Result Comment: This test is not yet approved or cleared by the [place] FDA. When there are no FDA-approved or cleared tests available, and other criteria are met, FDA can make tests available under an emergency access mechanism called an Emergency Use Authorization (EUA). The EUA for this test is supported by the Raw Stock Dyeing Machine Tender of Health and Human Service's (HHS's) declaration that circumstances exist to justify the emergency use of in vitro diagnostics for the detection and/or diagnosis of the virus that causes COVID-19. This EUA will remain in effect (meaning this test can be used) for the duration of the COVID-19 declaration justifying emergency of IVDs, unless it is terminated or revoked by FDA (after which the test may no longer be used). When diagnostic testing is negative, the possibility of a false negative should be considered in the context of a patient's recent exposures and the presence of clinical signs and symptoms consistent with SARS-CoV-2. Performed By: #### C VDTBH #### [facility] [address] [place] [address] Dr. Sruthi Arechiga GLYCOHEMOGLOBIN A1Con 2021 ADA RECOMMENDATION SEE BELOW Normal [facility] Comment on above: Result Comment: ADA RECOMMENDED LIMIT 4.0 - 6.0 ADA THERAPEUTIC TARGET < 7.0 ACTION SUGGESTED > 7.0 Performed By: #### H STROPN #### [facility] [address] [place] [address] Dr. Sruthi Arechiga Glucose [Mass/Vol] 255 mg/dL Normal [facility] Comment on above: Performed By: #### H STROPN #### [facility] [address] [place] [address] Dr. Sruthi Arechiga HbA1c (Bld) [Mass fraction] 10.5 % Critically high 4.5-6.[address] [facility] Comment on above: Performed By: #### H STROPN #### [facility] [address] [place] [address] Dr. Sruthi Arechiga MRSA NARES #1on 08-17-2022 MRSA NARES #1 Culture Observations : NO GROWTH OF MRSA AT 48 HOURS. Normal [facility] Comment on above: Performed By: #### M RSAN1 ####[facility] [address] [place], [place] [address]Dr. Sruthi Arechiga PREALBUMINon 08-17-2022 Prealbumin [Mass/Vol] 23.6 mg/dL Normal 20.9-45.[address] [facility] Comment on above: Performed By: #### B MP, PREALB, ALB ####[facility] [address] [address]Dr. Sruthi Arechiga PROF CHEM 8 (BAS METB)on Anion gap [Moles/Vol] 11.2 mmol/L Normal [facility] Comment on above: Performed By: #### B MP, PREALB, ALB ####[facility] [address] [place] [address]Dr. Sruthi Arechiga Calcium [Mass/Vol] 9.1 mg/dL Normal 8.5-10.1 [facility] Comment on above: Performed By: #### B MP, PREALB, ALB ####[facility] [address] [place], [place] [address]Dr. Sruthi Arechiga Chloride [Moles/Vol] 105 mmol/L Normal 98-[address] [facility] Comment on above: Performed By: #### B MP, PREALB, ALB ####[facility] [address] [place], [place] [address]Dr. Sruthi Arechiga CO2 [Moles/Vol] 26.3 mmol/L Normal 21.0-32.0 [facility] Comment on above: Performed By: #### B MP, PREALB, ALB ####[facility] [address] [place], [place] [address]Dr. Sruthi Arechiga Creatinine [Mass/Vol] 0.72 mg/dL Normal 0.55-1.[address] [facility] Comment on above: Performed By: #### B MP, PREALB, ALB ####[facility] [address] [place], [place] [address]Dr. Sruthi Hawk EGFR-AF LITHUANIAN >60 Normal >=60 [facility] Comment on above: Performed By: #### B MP, PREALB, ALB ####[facility] [address] [place], [place] [address]Dr. Sruthi Arechiga EGFR-NON AF LITHUANIAN >60 Normal >=[address] [facility] Comment on above: Performed By: #### B MP, PREALB, ALB ####[facility] [address] [place], [place] [address]Dr. Sruthi Arechiga Glucose [Mass/Vol] 119 mg/dL Critically high 74-106 [facility] Comment on above: Performed By: #### B MP, PREALB, ALB ####[facility] [address] [address]Dr. Sruthi Arechiga Potassium [Moles/Vol] 4.5 mmol/L Normal 3.5-5.[address] [facility] Comment on above: Performed By: #### B MP, PREALB, ALB ####[facility] [address] [address]Dr. Sruthi Arechiga Sodium [Moles/Vol] 138 mmol/L Normal 136-145 [facility] Comment on above: Performed By: #### B MP, PREALB, ALB ####[facility] [address] [address]Dr. Sruthi Arechiga Urea nitrogen [Mass/Vol] 18.0 mg/dL Normal 7.0-18.[address] [facility] Comment on above: Performed By: #### B MP, PREALB, ALB ####[facility] [address] [place] [address]Dr. Sruthi Arechiga Urea nitrogen/Creatinine [Mass ratio] 25.0 mg/mg Normal [facility] Comment on above: Performed By: #### B MP, PREALB, ALB ####[facility] [address] [address]Dr. Sruthi Arechiga [facility]11 SARS-CoV-2 (COVID-19) RNA KOLE+probe Ql (Unsp spec) Not detected Normal NOT DETECTED [facility] Comment on above: Result Comment: When diagnostic testing is negative, the possibility of a false negative should be considered in the context of a patient's recent exposures and the presence of clinical signs and symptoms consistent with SARS-CoV-2. This test is not yet approved or cleared by the [place] FDA. When there are no FDA-approved or cleared tests available, and other criteria are met, FDA can make tests available under an emergency access mechanism called an Emergency Use Authorization (EUA). The EUA for this test is supported by the [place] of Health and Human Service's declaration that circumstances exist to justify the emergency use of in vitro diagnostics for the detection and/or diagnosis of the virus that causes COVID-19. This EUA will remain in effect for the duration of the COVID-19 declaration justifying emergency of IVDs, unless it is terminated or revoked by the FDA (after which the test may no longer be used). Performed By: #### C VDTB #### [facility] [address] [address] [address] Sruthi Arechiga BNPon 07-07-2022 Natriuretic peptide B (Bld) [Mass/Vol] 1389.0 pg/mL Critically high <=900.0 [facility] Comment on above: Performed By: #### B BASE LOADER, BMP ####[facility] [address] [place], [place] [address]DrIndu Arechiga CBC AUTO DIFFon 07-07-2022 BASO # 0.0 103/ul Normal 0.0-0.1 [facility] Comment on above: Performed By: #### C BC ####[facility] [address] [address]DrIndu Arechiga Basophils/100 WBC (Bld) 0.5 % Normal 0.2-2.0 [facility] Comment on above: Performed By: #### C BC ####[facility] [address] [address]DrIndu Arechiga EO # 0.2 103/ul Normal 0.0-0.7 [facility] Comment on above: Performed By: #### C BC ####[facility] [address] [place], [place] [address]DrIndu Arechiga Eosinophils/100 WBC (Bld) 2.4 % Normal 0.9-7.0 [facility] Comment on above: Performed By: #### C BC ####[facility] [address] [place], [place] [address]DrIndu Arechiga Erythrocyte distribution width (RBC) [Ratio] 13.2 % Normal 11.0-15.0 [facility] Comment on above: Performed By: #### C BC ####[facility] [address] [address]Dr. Sruthi Arechiga Hematocrit (Bld) [Volume fraction] 32.4 % Critically low 36.0-48.[address] [facility] Comment on above: Performed By: #### C BC ####[facility] [address] [address]Dr. Sruthi Arechiga Hemoglobin (Bld) [Mass/Vol] 10.2 g/dL Critically low 12.0-16.0 [facility] Comment on above: Performed By: #### C BC ####[facility] [address] [address]Dr. Sruthi Arechiga IG # 0.04 10e3/ul Critically high 0.00-0.03 [facility] Comment on above: Performed By: #### C BC ####[facility] [address]ysx[address] [address]Dr. Sruthi Arechiga IG % 0.5 % Normal 0.0-0.[address] [facility] Comment on above: Performed By: #### C BC ####[facility] [address] [place], [place] [address]Dr. Sruthi Arechiga LYMPH # 2.1 103/ul Normal 1.2-3.8 [facility] Comment on above: Performed By: #### C BC ####[facility] [address] [address]DrIndu Kamalasven Arechiga Lymphocytes/100 WBC (Bld) 23.9 % Normal 20.5-60.0 [facility] Comment on above: Performed By: #### C BC ####[facility] [address] [address]DrIndu Kamalasven Arechiga MANUAL DIFF REQ NO Normal [facility] Comment on above: Performed By: #### C BC ####[facility] [address]mb[address] [address]DrIndu Kamalasven Arechiga MCH (RBC) [Entitic mass] 26.8 pg Normal 26.7-34.0 [facility] Comment on above: Performed By: #### C BC ####[facility] [address] [place], [place] [address]Dr. Sruthi Arechiga MCHC (RBC) [Mass/Vol] 31.5 g/dL Normal 29.9-35.2 [facility] Comment on above: Performed By: #### C BC ####[facility] [address] [address]Dr. Sruthi Arechiga MCV (RBC) [Entitic vol] 85.0 fL Normal 81.0-99.0 [facility] Comment on above: Performed By: #### C BC ####[facility] [address] [address]Dr. Sruthi Arechiga MONO # 1.1 103/ul Critically high 0.3-0.8 [facility] Comment on above: Performed By: #### C BC ####[facility] [address] [address]Dr. Sruthi Hawk Monocytes/100 WBC (Bld) 13.1 % Critically high 1.7-12.0 [facility] Comment on above: Performed By: #### C BC ####[facility] Dimjuvtghz[address] [place], [place] [address]Dr. Sruthi Arechiga NEUT # 5.2 103/ul Normal 1.4-6.5 [facility] Comment on above: Performed By: #### C BC ####[facility] Uxfpldu[address] [place], [place] [address]Dr. Sruthi Arechiga Neutrophils/100 WBC (Bld) 59.6 % Normal 43.0-75.0 [facility] Comment on above: Performed By: #### C BC ####[facility] [address] [address]Dr. Sruthi Arechiga Platelet mean volume (Bld) [Entitic vol] 12.6 fL Normal 9.5-13.5 [facility] Comment on above: Performed By: #### C BC ####[facility] [address]nmq[address] [address]Dr. Sruthi Hawk PLT 146 103/ul Critically low 150-450 [facility] Comment on above: Performed By: #### C BC ####[facility] [address]iihb[address] [address]Dr. Sruthi Arechiga RBC 3.81 106/ul Critically low 4.20-5.40 [facility] Comment on above: Performed By: #### C BC ####[facility] [address] [address]Dr. Kamalasven Arechiga WBC 8.7 103/ul Normal 4.0-11.[address] [facility] Comment on above: Performed By: #### C BC ####[facility] [address] [address]Dr. Sruthi Arechiga PROF CHEM 8 (BAS METB)on Anion gap [Moles/Vol] 12.0 mmol/L Normal [facility] Comment on above: Performed By: #### B BASE LOADER, BMP ####[facility] [address]knfwwwve[address] [place], [place] [address]Dr. Sruthi Arechiga Calcium [Mass/Vol] 9.0 mg/dL Normal 8.5-10.1 [facility] Comment on above: Performed By: #### B BASE LOADER, BMP ####[facility] [address]izbqnhfw[address] [place], [place] [address]Dr. Sruthi Arechiga Chloride [Moles/Vol] 99 mmol/L Normal 98-[address] [facility] Comment on above: Performed By: #### B BASE LOADER, BMP ####[facility] [address]wf[address] [place], [place] [address]Dr. Sruthi Arechiga CO2 [Moles/Vol] 29.4 mmol/L Normal 21.0-32.0 [facility] Comment on above: Performed By: #### B BASE LOADER, BMP ####[facility] [address]ehi[address] [place], [place] [address]Dr. Sruthi Arechiga Creatinine [Mass/Vol] 0.86 mg/dL Normal 0.55-1.[address] [facility] Comment on above: Performed By: #### B BASE LOADER, BMP ####[facility] [address]ozs[address] [place], [place] [address]Dr. Sruthi Arechiga EGFR-AF LITHUANIAN >60 Normal >=60 [facility] Comment on above: Performed By: #### B BASE LOADER, BMP ####[facility] [address] [address]Dr. Sruthi Arechiga EGFR-NON AF LITHUANIAN >60 Normal >=[address] [facility] Comment on above: Performed By: #### B BASE LOADER, BMP ####[facility] [address] [address]Dr. Sruthi Arechiga Glucose [Mass/Vol] 185 mg/dL Critically high 74-106 [facility] Comment on above: Performed By: #### B BASE LOADER, BMP ####[facility] [address]ags[address] [address]Dr. Sruthi Arechiga Potassium [Moles/Vol] 4.4 mmol/L Normal 3.5-5.[address] [facility] Comment on above: Performed By: #### B BASE LOADER, BMP ####[facility] [address] [address]Dr. Sruthi Arechiga Sodium [Moles/Vol] 136 mmol/L Normal 136-145 [facility] Comment on above: Performed By: #### B BASE LOADER, BMP ####[facility] [address] [address]Dr. Sruthi Arechiga Urea nitrogen [Mass/Vol] 27.0 mg/dL Critically high 7.0-18.[address] [facility] Comment on above: Performed By: #### B BASE LOADER, BMP ####[facility] [address] [address]Dr. Sruthi Arechiga Urea nitrogen/Creatinine [Mass ratio] 31.4 mg/mg Normal [facility] Comment on above: Performed By: #### B BASE LOADER, BMP ####[facility] [address] [address]Dr. Sruthi Arechiga CBC AUTO DIFFon 07-06-2022 BASO # 0.0 103/ul Normal 0.0-0.[address] [facility] Comment on above: Performed By: #### C VDTBH #### [facility] [address] [address] [address] Sruthi Arechiga Basophils/100 WBC (Bld) 0.4 % Normal 0.2-2.[address] [facility] Comment on above: Performed By: #### C VDTBH #### [facility] [address] [place] [address] Dr. Sruthi Arechiga EO # 0.2 103/ul Normal 0.0-0.[address] [facility] Comment on above: Performed By: #### C VDTBH #### [facility] [address] [place] [address] Dr. Srtuhi Arechiga Eosinophils/100 WBC (Bld) 2.4 % Normal 0.9-7.[address] [facility] Comment on above: Performed By: #### C VDTBH #### [facility] [address] [place] [address] Dr. Sruthi Arechiga Erythrocyte distribution width (RBC) [Ratio] 13.3 % Normal 11.0-15.[address] [facility] Comment on above: Performed By: #### C VDTBH #### [facility] [address] [place] [address] Dr. Sruthi Arechiga Hematocrit (Bld) [Volume fraction] 32.0 % Critically low 36.0-48.[address] [facility] Comment on above: Performed By: #### C VDTBH #### [facility] [address] [place] [address] Dr. Sruthi Arechiga Hemoglobin (Bld) [Mass/Vol] 10.0 g/dL Critically low 12.0-16.[address] [facility] Comment on above: Performed By: #### C VDTBH #### [facility] [address] [place] [address] Dr. Sruthi Arechiga IG # 0.05 10e3/ul Critically high 0.00-0.03 [facility] Comment on above: Performed By: #### C VDTBH #### [facility] [address] [place] [address] Dr. Sruthi Arechiga IG % 0.5 % Normal 0.0-0.[address] [facility] Comment on above: Performed By: #### C VDTBH #### [facility] [address] [place] [address] Dr. Sruthi Arechiga LYMPH # 2.4 103/ul Normal 1.2-3.[address] [facility] Comment on above: Performed By: #### C VDTBH #### [facility] [address] [place] [address] Dr. Sruthi Arechiga Lymphocytes/100 WBC (Bld) 24.5 % Normal 20.5-60.[address] [facility] Comment on above: Performed By: #### C VDTBH #### [facility] [address] [place] [address] Dr. Sruthi Arechiga MANUAL DIFF REQ NO Normal [facility] Comment on above: Performed By: #### C VDTBH #### [facility] [address] [place] [address] Dr. Sruthi Arechiga MCH (RBC) [Entitic mass] 26.5 pg Critically low 26.7-34.[address] [facility] Comment on above: Performed By: #### C VDTBH #### [facility] [address] [place] [address] Dr. Sruthi Arechiga MCHC (RBC) [Mass/Vol] 31.3 g/dL Normal 29.9-35.[address] [facility] Comment on above: Performed By: #### C VDTBH #### [facility] [address] [place] [address] Dr. Sruthi Arechiga MCV (RBC) [Entitic vol] 84.9 fL Normal 81.0-99.[address] [facility] Comment on above: Performed By: #### C VDTBH #### [facility] [address] [place] [address] Dr. Sruthi Arechiga MONO # 1.1 103/ul Critically high 0.3-0.8 [facility] Comment on above: Performed By: #### C VDTBH #### [facility] [address] [place] [address] Dr. Sruthi Arechiga Monocytes/100 WBC (Bld) 11.7 % Normal 1.7-12.[address] [facility] Comment on above: Performed By: #### C VDTBH #### [facility] [address] [place] [address] Dr. Sruthi Arechiga NEUT # 5.8 103/ul Normal 1.4-6.[address] [facility] Comment on above: Performed By: #### C VDTBH #### [facility] [address] [place] [address] Dr. Sruthi Arechiga Neutrophils/100 WBC (Bld) 60.5 % Normal 43.0-75.[address] [facility] Comment on above: Performed By: #### C VDTBH #### [facility] [address] [place] [address] Dr. Sruthi Arechiga Platelet mean volume (Bld) [Entitic vol] 11.8 fL Normal 9.5-13.[address] [facility] Comment on above: Performed By: #### C VDTBH #### [facility] [address] [place] [address] Dr. Sruthi Arechiga PLT 198 103/ul Normal 150-450 [facility] Comment on above: Performed By: #### C VDTBH #### [facility] [address] [place] [address] Dr. Sruthi Arechiga RBC 3.77 106/ul Critically low 4.20-5.40 [facility] Comment on above: Performed By: #### C VDTBH #### [facility] [address] [place] [address] Dr. Sruthi Arechiga WBC 9.7 103/ul Normal 4.0-11.[address] [facility] Comment on above: Performed By: #### C VDTBH #### [facility] [address] [place] [address] Dr. Sruthi Arechiga CULTURE URINEon 07-06-2022 CULTURE URINE Isolate 1 Klebsiella pneumoniae >100,000 cfu/mL of ORGANISM 1 Klebsiella pneumoniae ANTIBIOTIC M.I.C RX STATUS Ampicillin 16 R F Ampicillin/Sulbactam 4 S F Piperacillin/Tazobacta m <=4 S F Cefazolin <=4 S F Ceftazidime <=1 S F Ceftriaxone <=1 S F Ertapenem <=0.5 S F Imipenem <=0.25 S F Amikacin <=2 S F Gentamicin <=1 S F Tobramycin <=1 S F Ciprofloxacin <=0.25 S F Levofloxacin <=0.12 S F Nitrofurantoin <=16 S F Trimethoprim/Sulfameth oxazole <=20 S F Normal [facility] Comment on above: Performed By: #### U RCX ####[facility] [address] [place], [place] [address]Gy. Sruthi Arechiga IRON AND TIBCon 07-06-2022 % SATURATION 9.3 % Normal [facility] Comment on above: Performed By: #### F ETIBC, B12FOL ####[facility] [address] [place], [place] [address]Re. Sruthi Arechiga Iron [Mass/Vol] 33.0 ug/dL Critically low 50.0-170.0 [facility] Comment on above: Performed By: #### F ETIBC, B12FOL ####[facility] [address] [address]Dr. Sruthi Arechiga TIBC DIRECT 356.0 ug/dL Normal 250.0-450.0 [facility] Comment on above: Performed By: #### F ETIBC, B12FOL ####[facility] [address] [address]Dr. Sruthi Arechiga OCC BLD IMMUNO SCREENon 06-11 OCCULT BLOOD Negative Normal NEGATIVE [facility] Comment on above: Performed By: #### O BSCRN #### [facility] [address] [address] [address] Sruthi Arechiga POINT OF CARE GLUCOSEon 06-11 Glucose [Mass/Vol] 203 mg/dL Critically high -[address] [place] [address] Comment on above: Performed By: #### C BC #### [facility] [address] [address] [address] Sruthi Arechiga Glucose [Mass/Vol] 299 mg/dL Critically high [address] [place] [address] Comment on above: Performed By: #### C VDTBH #### [facility] [address] [address] [address] Sruthi Arechiga Glucose [Mass/Vol] 412 mg/dL Critically high [address] [place] [address] Comment on above: Performed By: #### C BC #### [facility] [address] [place], [place] [address] Dr. Sruthi Arechiga PROF CHEM 8 (BAS METB)on Anion gap [Moles/Vol] 11.0 mmol/L Normal [facility] Comment on above: Performed By: #### B MP ####[facility] [address] [address]DrIndu Arechiga Calcium [Mass/Vol] 9.0 mg/dL Normal 8.5-10.1 [facility] Comment on above: Performed By: #### B MP ####[facility] [address] [address]Dr. Sruthi Arechiga Chloride [Moles/Vol] 100 mmol/L Normal 98-[address] [facility] Comment on above: Performed By: #### B MP ####[facility] [address] [address]Dr. Sruthi Arechiga CO2 [Moles/Vol] 28.5 mmol/L Normal 21.0-32.0 [facility] Comment on above: Performed By: #### B MP ####[facility] [address] [place] [address]DrIndu Arechiga Creatinine [Mass/Vol] 0.98 mg/dL Normal 0.55-1.[address] [facility] Comment on above: Performed By: #### B MP ####[facility] [address]tsjl[address] [place] [address]DrIndu Arechiga EGFR-AF LITHUANIAN >60 Normal >=60 [facility] Comment on above: Performed By: #### B MP ####[facility] [address] [address]DrIndu Arechiga EGFR-NON AF LITHUANIAN 56 mL/min/1.73m2 Critically low >=[address] [facility] Comment on above: Performed By: #### B MP ####[facility] [address] [address]DrIndu Arechiga Glucose [Mass/Vol] 139 mg/dL Critically high 74-106 [facility] Comment on above: Performed By: #### B MP ####[facility] [address] [address]Dr. Sruthi Arechiga Potassium [Moles/Vol] 4.5 mmol/L Normal 3.5-5.[address] [facility] Comment on above: Performed By: #### B MP ####[facility] [address] [address]Dr. Sruthi Arechiga Sodium [Moles/Vol] 135 mmol/L Critically low 136-145 [facility] Comment on above: Performed By: #### B MP ####[facility] [address] [address]Dr. Sruthi Arechiga Urea nitrogen [Mass/Vol] 25.0 mg/dL Critically high 7.0-18.[address] [facility] Comment on above: Performed By: #### B MP ####[facility] [address]ftsecib[address] [place], [place] [address]Dr. Sruthi Arechiga Urea nitrogen/Creatinine [Mass ratio] 25.5 mg/mg Normal [facility] Comment on above: Performed By: #### B MP ####[facility] [address] [place], [place] [address]Dr. Sruthi Arechiga VIT B12 AND FOLATEon 022 Cobalamin (Vitamin B12) [Mass/Vol] 653.0 pg/mL Normal 193.0-986.[address] [facility] Comment on above: Performed By: #### F ETIBC, B12FOL ####[facility] [address] [address]Dr. Sruthi Arechiga FOLATE 17.90 ng/mL Normal 8.60-58.[address] [facility] Comment on above: Performed By: #### F ETIBC, B12FOL ####[facility] [address]ew[address] [place], [place] [address]Dr. Sruthi Arechiga XR CHEST 2 Von 07-06-2022 XR CHEST 2 V EXAM: XR CHEST 2 V HISTORY: SHORTNESS OF BREATH COMPARISON: 06/14/2022 TECHNIQUE: PA and lateral FINDINGS: LUNGS: Significant improvement but not complete resolution parenchymal infiltrates. Moderate right basilar infiltrates VASCULATURE: No increased pulmonary vasculature. PLEURA: Blunting of the right costophrenic angles, pleural effusion CARDIAC: No cardiomegaly or cardiac silhouette abnormality. MEDIASTINUM: No visible mass or adenopathy. Aortic atherosclerosis BONES: No fracture or visible bone lesion. OTHER: Negative. IMPRESSION: Right basilar infiltrate likely consolidation and pleural effusion Interval improvement of pulmonary edema Electronically authenticated by: GORDON VALENZUELA Date: 2022-07-06 08:43 Normal [facility] CBC AUTO DIFFon 07-05-2022 BASO # 0.0 103/ul Normal 0.0-0.[address] [facility] Comment on above: Performed By: #### C BC ####[facility] [address] [address]Dr. Sruthi Arechiga Basophils/100 WBC (Bld) 0.4 % Normal 0.2-2.[address] [facility] Comment on above: Performed By: #### C BC ####[facility] [address]ivvor[address] [place], [place] [address]Dr. Sruthi Arechiga EO # 0.2 103/ul Normal 0.0-0.7 [facility] Comment on above: Performed By: #### C BC ####[facility] [address]isycvs[address] [place], [place] [address]Dr. Sruthi Arechiga Eosinophils/100 WBC (Bld) 2.6 % Normal 0.9-7.[address] [facility] Comment on above: Performed By: #### C BC ####[facility] [address]ccergbzs[address] [place], [place] [address]Dr. Sruthi Arechiga Erythrocyte distribution width (RBC) [Ratio] 13.3 % Normal 11.0-15.0 [facility] Comment on above: Performed By: #### C BC ####[facility] [address]zy[address] [place], [place] [address]Dr. Sruthi Arechiga Hematocrit (Bld) [Volume fraction] 31.3 % Critically low 36.0-48.[address] [facility] Comment on above: Performed By: #### C BC ####[facility] [address]ht[address] [place], [place] [address]Dr. Sruthi Arechiga Hemoglobin (Bld) [Mass/Vol] 9.9 g/dL Critically low 12.0-16.0 [facility] Comment on above: Performed By: #### C BC ####[facility] [address] [place] [address]DrIndu Arechiga IG # 0.07 10e3/ul Critically high 0.00-0.03 [facility] Comment on above: Performed By: #### C BC ####[facility] [address]jj[address] [place] [address]DrIndu Arechiga IG % 0.8 % Critically high 0.0-0.5 [facility] Comment on above: Performed By: #### C BC ####[facility] S[address]teaflyon[address] [place], [place] [address]DrIndu Arechiga LYMPH # 2.1 103/ul Normal 1.2-3.8 [facility] Comment on above: Performed By: #### C BC ####[facility] R[address]wbnpe[address] [place], [place] [address]DrIndu Arehciga Lymphocytes/100 WBC (Bld) 22.5 % Normal 20.5-60.[address] [facility] Comment on above: Performed By: #### C BC ####[facility] [address]ymng[address] [place], [place] [address]DrIndu Arechiga MANUAL DIFF REQ NO Normal [facility] Comment on above: Performed By: #### C BC ####[facility] [address]udj[address] [place] [address]DrIndu Arechiga MCH (RBC) [Entitic mass] 27.0 pg Normal 26.7-34.[address] [facility] Comment on above: Performed By: #### C BC ####[facility] [address] [place], [place] [address]DrIndu Arechiga MCHC (RBC) [Mass/Vol] 31.6 g/dL Normal 29.9-35.2 [facility] Comment on above: Performed By: #### C BC ####[facility] [address]zzvszy[address] [place], [place] [address]DrIndu Arechiga MCV (RBC) [Entitic vol] 85.3 fL Normal 81.0-99.0 [facility] Comment on above: Performed By: #### C BC ####[facility] [address] [place] [address]DrIndu Sruthi Arechiga MONO # 1.2 103/ul Critically high 0.3-0.8 [facility] Comment on above: Performed By: #### C BC ####[facility] Fr[address]sc[address]jjd[address] [place] [address]DrIndu Kamalasven Arechiga Monocytes/100 WBC (Bld) 12.9 % Critically high 1.7-12.0 [facility] Comment on above: Performed By: #### C BC ####[facility] [address]kmk[address] [place], [place] [address]Dr. Sruthi Arechiga NEUT # 5.7 103/ul Normal 1.4-6.5 [facility] Comment on above: Performed By: #### C BC ####[facility] [address]ufsbe[address] [place], [place] [address]Dr. Sruthi Arechiga Neutrophils/100 WBC (Bld) 60.8 % Normal 43.0-75.0 [facility] Comment on above: Performed By: #### C BC ####[facility] [address]wumrei[address] [place], [place] [address]DrIndu Sruthi Hawk Platelet mean volume (Bld) [Entitic vol] 11.2 fL Normal 9.5-13.5 [facility] Comment on above: Performed By: #### C BC ####[facility] Ug[address]wdosjd[address] [place], [place] [address]Dr. Kamalasven Hawk PLT 213 103/ul Normal 150-450 [facility] Comment on above: Performed By: #### C BC ####[facility] [address] [place], [place] [address]DrIndu Arechiga RBC 3.67 106/ul Critically low 4.20-5.40 [facility] Comment on above: Performed By: #### C BC ####[facility] [id number] [place], [place] [address]DrIndu Arechiga WBC 9.3 103/ul Normal 4.0-11.[address] [facility] Comment on above: Performed By: #### C BC ####[facility] [address] [id number]. Sruthi Arechiga POINT OF CARE GLUCOSEon 06-11 Glucose [Mass/Vol] 164 mg/dL Critically high 74-106 [facility] Comment on above: Performed By: #### C VDTBH #### [facility] [address] [address] [address] Sruthi Arechiga Glucose [Mass/Vol] 303 mg/dL Critically high 74-106 [facility] Comment on above: Performed By: #### P OCGLUC #### [facility] [address] [address] [address] Sruthi Arechiga Glucose [Mass/Vol] 278 mg/dL Critically high -106 [facility] Comment on above: Performed By: #### C VDTBH #### [facility] [address] [address] [address] Sruthi Arechiga PROF CHEM 8 (BAS METB)on Anion gap [Moles/Vol] 9.9 mmol/L Normal [facility] Comment on above: Performed By: #### B MP ####[facility] [address] [address]DrIndu Arechiga Calcium [Mass/Vol] 8.7 mg/dL Normal 8.5-10.1 [facility] Comment on above: Performed By: #### B MP ####[facility] [address] [address]DrIndu Arechiga Chloride [Moles/Vol] 100 mmol/L Normal 98-[address] [facility] Comment on above: Performed By: #### B MP ####[facility] [address] [address]DrIndu Arechiga CO2 [Moles/Vol] 28.4 mmol/L Normal 21.0-32.0 [facility] Comment on above: Performed By: #### B MP ####[facility] [address] [address]Dr. Sruthi Arechiga Creatinine [Mass/Vol] 0.99 mg/dL Normal 0.55-1.[address] [facility] Comment on above: Performed By: #### B MP ####[facility] [address] [address]Dr. Sruthi Arechiga EGFR-AF LITHUANIAN >60 Normal >=60 [facility] Comment on above: Performed By: #### B MP ####[facility] [address] [place], [place] [address]Dr. Sruthi Arechiga EGFR-NON AF LITHUANIAN 56 mL/min/1.73m2 Critically low >=[address] [facility] Comment on above: Performed By: #### B MP ####[facility] [address] [place], [place] [address]Dr. Sruthi Arechiga Glucose [Mass/Vol] 174 mg/dL Critically high 74-106 [facility] Comment on above: Performed By: #### B MP ####[facility] [address] [place], [place] [address]Dr. Sruthi Arechiga Potassium [Moles/Vol] 4.3 mmol/L Normal 3.5-5.[address] [facility] Comment on above: Performed By: #### B MP ####[facility] [address] [place], [place] [address]Dr. Sruthi Arechiga Sodium [Moles/Vol] 134 mmol/L Critically low 136-145 [facility] Comment on above: Performed By: #### B MP ####[facility] [address] [place], [place] [address]Dr. Sruthi Arechiga Urea nitrogen [Mass/Vol] 22.0 mg/dL Critically high 7.0-18.[address] [facility] Comment on above: Performed By: #### B MP ####[facility] Fc[address] [place], [place] [address]Dr. Sruthi Arechiga Urea nitrogen/Creatinine [Mass ratio] 22.2 mg/mg Normal [facility] Comment on above: Performed By: #### B MP ####[facility] [address] [place], [place] [address]Dr. Sruthi Arechiga BNPon 07-04-2022 Natriuretic peptide B (Bld) [Mass/Vol] 1822.0 pg/mL Critically high <=900.0 [facility] Comment on above: Performed By: #### C BC #### [facility] [address] [place] [address] Dr. Sruthi Arechiga CBC AUTO DIFFon 07-04-2022 BASO # 0.0 103/ul Normal 0.0-0.[address] [facility] Comment on above: Performed By: #### C BC #### [facility] [address] [place] [address] Dr. Sruthi Arechiga Basophils/100 WBC (Bld) 0.4 % Normal 0.2-2.[address] [facility] Comment on above: Performed By: #### C BC #### [facility] [address] [place] [address] Dr. Sruthi Arechiga EO # 0.2 103/ul Normal 0.0-0.7 [facility] Comment on above: Performed By: #### C BC #### [facility] [address] [place] [address] Dr. Sruthi Arechiga Eosinophils/100 WBC (Bld) 2.4 % Normal 0.9-7.[address] [facility] Comment on above: Performed By: #### C BC #### [facility] [address] [place] [address] Dr. Sruthi Arechiga Erythrocyte distribution width (RBC) [Ratio] 13.5 % Normal 11.0-15.0 [facility] Comment on above: Performed By: #### C BC #### [facility] [address] [place] [address] Dr. Sruthi Arechiga Hematocrit (Bld) [Volume fraction] 36.4 % Normal 36.0-48.0 [facility] Comment on above: Performed By: #### C BC #### [facility] [address] [place] [address] Dr. Sruthi Arechiga Hemoglobin (Bld) [Mass/Vol] 11.6 g/dL Critically low 12.0-16.0 [facility] Comment on above: Performed By: #### C BC #### [facility] [address] [address] [address] Sruthi Arechiga IG # 0.11 10e3/ul Critically high 0.00-0.03 [facility] Comment on above: Performed By: #### C BC #### [facility] [address] [address] [address] Sruthi Arechiga IG % 1.2 % Critically high 0.0-0.5 [facility] Comment on above: Performed By: #### C BC #### [facility] [address] [address] [address] Sruthi Arechiga LYMPH # 1.7 103/ul Normal 1.2-3.8 [facility] Comment on above: Performed By: #### C BC #### [facility] [address] [place] [address] Dr. Sruthi Arechiga Lymphocytes/100 WBC (Bld) 19.0 % Critically low 20.5-60.[address] [facility] Comment on above: Performed By: #### C BC #### [facility] [address] [place] [address] Dr. Sruthi Arechiga MANUAL DIFF REQ NO Normal [facility] Comment on above: Performed By: #### C BC #### [facility] [address] [place] [address] Dr. Sruthi Arechiga MCH (RBC) [Entitic mass] 27.3 pg Normal 26.7-34.[address] [facility] Comment on above: Performed By: #### C BC #### [facility] [address] [place] [address] Dr. Sruthi Arechiga MCHC (RBC) [Mass/Vol] 31.9 g/dL Normal 29.9-35.2 [facility] Comment on above: Performed By: #### C BC #### [facility] [address] [place] [address] Dr. Sruthi Arechiga MCV (RBC) [Entitic vol] 85.6 fL Normal 81.0-99.[address] [facility] Comment on above: Performed By: #### C BC #### [facility] [address] [place] [address] Dr. Sruthi Arechiga MONO # 1.1 103/ul Critically high 0.3-0.8 [facility] Comment on above: Performed By: #### C BC #### [facility] [address] [place] [address] Dr. Sruthi Arechiga Monocytes/100 WBC (Bld) 11.9 % Normal 1.7-12.0 [facility] Comment on above: Performed By: #### C BC #### [facility] [address] [place] [address] Dr. Sruthi Arechiga NEUT # 6.0 103/ul Normal 1.4-6.5 [facility] Comment on above: Performed By: #### C BC #### [facility] [address] [place] [address] Dr. Sruthi Arechiga Neutrophils/100 WBC (Bld) 65.1 % Normal 43.0-75.0 [facility] Comment on above: Performed By: #### C BC #### [facility] [address] [place] [address] Dr. Sruthi Arechiga Platelet mean volume (Bld) [Entitic vol] 10.7 fL Normal 9.5-13.5 [facility] Comment on above: Performed By: #### C BC #### [facility] [address] [place] [address] Dr. Sruthi Arechiga PLT 264 103/ul Normal 150-450 [facility] Comment on above: Performed By: #### C BC #### [facility] [address] [place] [address] Dr. Sruthi Arechiga RBC 4.25 106/ul Normal 4.20-5.40 [facility] Comment on above: Performed By: #### C BC #### [facility] [address] [place] [address] Dr. Sruthi Arechiga WBC 9.2 103/ul Normal 4.0-11.0 [facility] Comment on above: Performed By: #### C BC #### [facility] [address] [place] [address] Dr. Sruthi Arechiga Covid-19 PCR (CVDTB)on 06-11 SARS-CoV-2 (COVID-19) RNA KOLE+probe Ql (Unsp spec) Not detected Normal NOT DETECTED [facility] Comment on above: Result Comment: When diagnostic testing is negative, the possibility of a false negative should be considered in the context of a patient's recent exposures and the presence of clinical signs and symptoms consistent with SARS-CoV-2. This test is not yet approved or cleared by the [place] FDA. When there are no FDA-approved or cleared tests available, and other criteria are met, FDA can make tests available under an emergency access mechanism called an Emergency Use Authorization (EUA). The EUA for this test is supported by the [place] of Health and Human Service's declaration that circumstances exist to justify the emergency use of in vitro diagnostics for the detection and/or diagnosis of the virus that causes COVID-19. This EUA will remain in effect for the duration of the COVID-19 declaration justifying emergency of IVDs, unless it is terminated or revoked by the FDA (after which the test may no longer be used). Performed By: #### C VDTB ####[facility] [address] [address]Dr. Sruthi Arechiga ER URINE PROFILEon Bilirubin Ql (U) Negative Normal NEGATIVE [facility] Comment on above: Performed By: #### C VDTBH #### [facility] [address] [place] [address] Dr. Sruthi Arechiga Clarity (U) CLEAR Normal CLEAR [facility] Comment on above: Performed By: #### C VDTBH #### [facility] [address] [place] [address] Dr. Sruthi Arechiga Color (U) LT. YELLOW Normal YELLOW [facility] Comment on above: Performed By: #### C VDTBH #### [facility] [address] [place] [address] Dr. Sruthi Arechiga ERUJIHAND A micrscopic examination will be performed if indicated. Normal [facility] Comment on above: Performed By: #### C VDTBH #### [facility] [address] [place] [address] Dr. Sruthi Arechiga Glucose Ql (U) >1000 Abnormal NEGATIVE [facility] Comment on above: Performed By: #### C VDTBH #### [facility] [address] [place] [address] Dr. Sruthi Arechiga Hemoglobin Ql (U) Negative Normal NEGATIVE [facility] Comment on above: Performed By: #### C VDTBH #### [facility] [address] [place] [address] Dr. Sruthi Arechiga Ketones Ql (U) Negative Normal NEGATIVE [facility] Comment on above: Performed By: #### C VDTBH #### [facility] [address] [place] [address] Dr. Sruthi Arechiga LEUKOCYTES SMALL Abnormal NEGATIVE [facility] Comment on above: Performed By: #### C VDTBH #### [facility] [address] [place] [address] Dr. Sruthi Arechiga Nitrite Ql (U) Negative Normal NEGATIVE [facility] Comment on above: Performed By: #### C VDTBH #### [facility] [address] [place] [address] Dr. Sruthi Arechiga pH (U) 6.0 [pH] Normal 5-[address] [facility] Comment on above: Performed By: #### C VDTBH #### [facility] [address] [place] [address] Dr. Sruthi Arechiga SPEC GRAVITY <=1.005 Abnormal 1.005-<=1.[address] [facility] Comment on above: Performed By: #### C VDTBH #### [facility] [address] [place] [address] Dr. Sruthi Arechiga UA PROTEIN Negative Normal NEGATIVE/ TRACE [facility] Comment on above: Performed By: #### C VDTBH #### [facility] [address] [place] [address] Dr. Sruthi Arechiga UR MICRO IND INDICATED Normal [facility] Comment on above: Performed By: #### C VDTBH #### [facility] [address] [place] [address] Dr. Sruthi Arechiga Urobilinogen Qn (U) 0.2 {Willow'U}/dL Normal 0.2 - 1. [address] [facility] Comment on above: Performed By: #### C VDTBH #### [facility] [address] [address] [address] Sruthi Arechiga POINT OF CARE GLUCOSEon 06-11 Glucose [Mass/Vol] 262 mg/dL Critically high 74-106 [facility] Comment on above: Performed By: #### P OCGLUC ####[facility] [address] [address]Dr. Sruthi Arechiga PROF CHEM 8 (BAS METB)on Anion gap [Moles/Vol] 13.0 mmol/L Normal [facility] Comment on above: Performed By: #### C BC #### [facility] [address] [address] [address] Sruthi Arechiga Calcium [Mass/Vol] 9.3 mg/dL Normal 8.5-10.1 [facility] Comment on above: Performed By: #### C BC #### [facility] [address] [address] [address] Sruthi Arechiga Chloride [Moles/Vol] 99 mmol/L Normal 98-[address] [facility] Comment on above: Performed By: #### C BC #### [facility] [address] [address] [address] Sruthi Arechiga CO2 [Moles/Vol] 26.3 mmol/L Normal 21.0-32.0 [facility] Comment on above: Performed By: #### C BC #### [facility] [address] [address] [address] Sruthi Arechiga Creatinine [Mass/Vol] 0.95 mg/dL Normal 0.55-1.[address] [facility] Comment on above: Performed By: #### C BC #### [facility] [address] [address] [address] Sruthi Arechiga EGFR-AF LITHUANIAN >60 Normal >=60 [facility] Comment on above: Performed By: #### C BC #### [facility] [address] [address] [address] Sruthi Arechiga EGFR-NON AF LITHUANIAN 58 mL/min/1.73m2 Critically low >=[address] [facility] Comment on above: Performed By: #### C BC #### [facility] [address] [address] [address] Sruthi Arechiga Glucose [Mass/Vol] 331 mg/dL Critically high 74-106 [facility] Comment on above: Performed By: #### C BC #### [facility] [address] [address] [address] Sruthi Arechiga Potassium [Moles/Vol] 4.3 mmol/L Normal 3.5-5.[address] [facility] Comment on above: Performed By: #### C BC #### [facility] [address] [address] [address] Sruthi Arechiga Sodium [Moles/Vol] 134 mmol/L Critically low 136-145 [facility] Comment on above: Performed By: #### C BC #### [facility] [address] [address] [address] Sruthi Arechiga Urea nitrogen [Mass/Vol] 20.0 mg/dL Critically high 7.0-18.[address] [facility] Comment on above: Performed By: #### C BC #### [facility] [address] [address] [address] Sruthi Arechiga Urea nitrogen/Creatinine [Mass ratio] 21.1 mg/mg Normal [facility] Comment on above: Performed By: #### C BC #### [facility] [address] [address] [address] Sruthi Arechiga TROPONIN, HIGH SENSITIVITYon 07-04-2022 HSTROP 113.1 pg/mL Critically high 4.0-51.3 [facility] Comment on above: Result Comment: CUT- OFF POINTS HAVE BEEN ESTABLISHED BASED ON THE FOURTH UNIVERSAL DEFINITIONS OF MYOCARDIAL INFARCTION. THE UPPER REFERENCE LIMIT (URL) OF TROPONIN, DEFINED THE 99TH PERCENTILE OF cTnI DISTRIBUTION IN A REFERENCE POPULATION, HAS BEEN CONFIRMED THE DECISION THRESHOLD FOR SC DIAGNOSIS. Performed By: #### C BC #### [facility] [address] [place] [address] Dr. Sruthi Arechiga HSTROP 126.6 pg/mL Critically high 4.0-51.3 [facility] Comment on above: Result Comment: CUT- OFF POINTS HAVE BEEN ESTABLISHED BASED ON THE FOURTH UNIVERSAL DEFINITIONS OF MYOCARDIAL INFARCTION. THE UPPER REFERENCE LIMIT (URL) OF TROPONIN, DEFINED THE 99TH PERCENTILE OF cTnI DISTRIBUTION IN A REFERENCE POPULATION, HAS BEEN CONFIRMED THE DECISION THRESHOLD FOR SC DIAGNOSIS. Performed By: #### C VDTBH #### [facility] [address] [place] [address] Dr. Sruthi Arechiga URINE MICROSCOPIC ONLYon BACTERIA LARGE Abnormal NONE SEEN [facility] Comment on above: Performed By: #### C VDTBH #### [facility] [address] [place] [address] Dr. Sruthi Arechiga Bacteria identified Cx Nom (U) INDICATED Normal [facility] Comment on above: Performed By: #### C VDTBH #### [facility] [address] [place] [address] Dr. Sruthi Arechiga CAST NONE SEEN Normal NONE SEEN [facility] Comment on above: Performed By: #### C VDTBH #### [facility] [address] [place] [address] Dr. Sruthi Arechiga Crystals LM Nom (Urine sed) NONE SEEN Normal NONE SEEN [facility] Comment on above: Performed By: #### C VDTBH #### [facility] [address] [place] [address] Dr. Sruthi Arechiga Epithelial cells LM Ql (Urine sed) FEW Abnormal NONE SEEN /RARE [facility] Comment on above: Performed By: #### C VDTBH #### [facility] [address] [place] [address] Dr. Sruthi Arechiga MUCOUS NONE SEEN Normal NONE SEEN [facility] Comment on above: Performed By: #### C VDTBH #### [facility] [address] [place] [address] Dr. Sruthi Arechiga RBC NONE SEEN Abnormal 0-2 [facility] Comment on above: Performed By: #### C VDTBH #### [facility] [address] [place], [place] [address] Dr. Sruthi Arechiga WBC 10-20 Abnormal NONE SEEN [facility] Comment on above: Performed By: #### C VDTBH #### [facility] [address] [place], [place] [address] Dr. Sruthi Arechiga XR CHEST 1 Von 07-04-2022 XR CHEST 1 V EXAMINATION: XR CHES T 1 V HISTORY: SHORTNESS OF BREATH COMPARISON: XR chest 2022 FINDINGS: LUNGS: Mild stranding bilaterally and peripheral septal thickening. Blunting of costophrenic angles, right greater than left. VASCULATURE: No increased pulmonary vasculature. PLEURA: No pneumothorax, effusion, or pleural thickening. CARDIAC: No cardiomegaly or cardiac silhouette abnormality. MEDIASTINUM: No visible mass or adenopathy. BONES: No fracture or visible bone lesion. OTHER: Negative. IMPRESSION: 1. Findings favor moderate bilateral pulmonary edema; increased since prior study. 2. Small-moderate right pleural effusion; grossly stable. Electronically authenticated by: GERMAIN COY Date: 2022-07-04 11:53 Normal [facility] CBC COMPLETE BLOOD COUNTon 0 07-03-2022 Erythrocyte distribution width (RBC) [Ratio] 13.4 % Normal 11.5-15.0 [facility] Comment on above: Order Comment: No: D o not add to previous draw Performed By: #### [id number] #### [facility] [address] [facility] Hematocrit (Bld) [Volume fraction] 33.6 % Low 36.0-45.0 [facility] Comment on above: Order Comment: No: D o not add to previous draw Performed By: #### 8 [id number] #### [facility] [address] [facility] [place] [address], [facility] Hemoglobin (Bld) [Mass/Vol] 10.6 g/dL Low 12.0-15.0 [facility] Comment on above: Order Comment: No: D o not add to previous draw Performed By: #### [id number] #### [facility] [address] [facility] [address], [facility] MCH (RBC) [Entitic mass] 26.6 pg Low 27.0-33.0 [facility] Comment on above: Order Comment: No: D o not add to previous draw Performed By: #### 8 [id number] #### [facility] [address] [place] [address], [facility] MCHC (RBC) [Mass/Vol] 31.5 g/dL Low 32.0-35.0 [facility] Comment on above: Order Comment: No: D o not add to previous draw Performed By: #### 8 [id number] #### [facility] [address] [place] [address], [facility] MCV (RBC) [Entitic vol] 84.4 fL Normal 82.0-98.0 [facility] Comment on above: Order Comment: No: D o not add to previous draw Performed By: #### 8 [id number] #### [facility] [address] [facility] [address], [facility] Nucleated RBC/100 WBC (Bld) [Ratio] 0 % Normal 0-0 [facility] Comment on above: Order Comment: No: D o not add to previous draw Performed By: #### 8 [id number] #### [facility] [address] [facility]. [place] [id number], [facility] PLAT CNT 247 10*3/uL Normal 150-400 [facility] Comment on above: Order Comment: No: D o not add to previous draw Performed By: #### 8 [id number] #### [facility] [address] [place] [address], [facility] RBC (Bld) [#/Vol] 3.98 10*6/uL Normal 3.80-5.00 [facility] Comment on above: Order Comment: No: D o not add to previous draw Performed By: #### [id number] #### [facility] [address] [facility] [place] [id number], [facility] WBC (Bld) [#/Vol] 10.25 10*3/uL Normal 4.00-10.60 [facility] Comment on above: Order Comment: No: D o not add to previous draw Performed By: #### 8 [id number] #### [facility] [address] [place] [address], [facility] POC GLUCOSE LABon 07-03-2022 Glucose [Mass/Vol] 204 mg/dL High 70-100 [facility] Comment on above: Performed By: #### 1 [id number], [id number], [id number] #### [facility] [address] [place] [address], [facility] Glucose [Mass/Vol] 135 mg/dL High 70-100 [facility] Comment on above: Performed By: #### 8 [id number] #### [facility] [address] UFH HEPARIN ASSAYon 07-03-20 22 UNFRACTIONATED HEPARIN <0.10 Critically low 0.30-0.70 [facility] Comment on above: Result Comment: Resu lt checked and called. Accurately read back by Chanda @[facility] Rivaroxaban and Apixaban will interfere with the anti Xa assay used to monitor UFH and LMWH. Performed By: #### 3 [id number] #### [facility] [address] [place] [address], [facility] BASIC METABOLIC PANELon 06-11 Calcium [Mass/Vol] 8.8 mg/dL Normal 8.6-10.3 [facility] Comment on above: Order Comment: No: D o not add to previous draw Performed By: #### 8 [id number] #### [facility] [address] [place] [address], [facility] Chloride [Moles/Vol] 104 mmol/L Normal 98-107 [facility] Comment on above: Order Comment: No: D o not add to previous draw Performed By: #### 8 [id number] #### [facility] [address] [place] [address], [facility] CO2 [Moles/Vol] 26 mmol/L Normal 21-31 [facility] Comment on above: Order Comment: No: D o not add to previous draw Performed By: #### 8 [id number] #### [facility] [address] [place] [address], [place] Creatinine [Mass/Vol] 0.62 mg/dL Normal 0.60-1.20 [facility] Comment on above: Order Comment: No: D o not add to previous draw Performed By: #### 8 [id number] #### [facility] [address] [place] [address], [facility] GFR/1.73 sq M.predicted among non-blacks MDRD (S/P/Bld) [Vol rate/Area] mL/min/{1.73_m2} Normal >60 [facility] Comment on above: Order Comment: No: D o not add to previous draw Result Comment: [facility]'s estimated glomerular filtration rate (eGFR) will no longer include consideration of race in its calculation. The National Kidney Foundation's eGFR Task Force developed new recommendations for the estimation of the glomerular filtration rate in the [place] They recommend immediate implementation of the new equation refit without the race variable in all laboratories because the calculation does not include race. In addition to not including race in the calculation and reporting, it included diversity in its development, and has acceptable performance characteristics and potential consequences that do not disproportionately affect any one group of individuals. Performed By: #### 8 [id number] #### [facility] [address] [place] [address], [place] Glucose [Mass/Vol] 212 mg/dL High 70-100 [facility] Comment on above: Order Comment: No: D o not add to previous draw Performed By: #### 8 [id number] #### [facility] [address] [place] [address], [place] Potassium [Moles/Vol] 3.8 mmol/L Normal 3.5-5.1 [facility] Comment on above: Order Comment: No: D o not add to previous draw Performed By: #### 8 [id number] #### [facility] [address] Sodium [Moles/Vol] 134 mmol/L Low 136-145 [facility] Comment on above: Order Comment: No: D o not add to previous draw Performed By: #### 8 [id number] #### [facility] [address] Urea nitrogen [Mass/Vol] 15 mg/dL Normal 7-25 [facility] Comment on above: Order Comment: No: D o not add to previous draw Performed By: #### 8 [id number] #### [facility] [address] CBC W/DIFFon 07-02-2022 ABS IMM GRANS 0.1 10*3/uL Normal 0.0-0.2 [facility] Comment on above: Order Comment: No: D o not add to previous draw Performed By: #### 8 [id number] #### [facility] [address] ABS NEUTROPHILS 6.3 10*3/uL Normal 1.6-7.6 [facility] Comment on above: Order Comment: No: D o not add to previous draw Performed By: #### 8 [id number] #### [facility] [address] [facility]. [address] Basophils (Bld) [#/Vol] 0.0 10*3/uL Normal 0.0-0.2 [facility] Comment on above: Order Comment: No: D o not add to previous draw Performed By: #### 8 [id number] #### [facility] [address] [place] [address], [facility] Basophils/100 WBC (Bld) 0.3 % Normal 0.0-1.0 [facility] Comment on above: Order Comment: No: D o not add to previous draw Performed By: #### 8 [id number] #### [facility] [address] [place] [address], [facility] Eosinophils (Bld) [#/Vol] 0.2 10*3/uL Normal 0.0-0.5 [facility] Comment on above: Order Comment: No: D o not add to previous draw Performed By: #### 8 [id number] #### [facility] [address] [place] [address], [facility] Eosinophils/100 WBC (Bld) 2.3 % Normal 0.0-6.0 [facility] Comment on above: Order Comment: No: D o not add to previous draw Performed By: #### 8 [id number] #### [facility] [address] [place] [address], [facility] Erythrocyte distribution width (RBC) [Ratio] 13.5 % Normal 11.5-15.0 [facility] Comment on above: Order Comment: No: D o not add to previous draw Performed By: #### 8 [id number] #### [facility] [address] [place] [address], [facility] Hematocrit (Bld) [Volume fraction] 31.3 % Low 36.0-45.0 [facility] Comment on above: Order Comment: No: D o not add to previous draw Performed By: #### 8 [id number] #### [facility] [address] [place] [address], [facility] Hemoglobin (Bld) [Mass/Vol] 10.2 g/dL Low 12.0-15.0 [facility] Comment on above: Order Comment: No: D o not add to previous draw Performed By: #### 8 [id number] #### [facility] [address] [place] [address], [facility] IMMATURE GRANS 0.8 % Normal 0.0-1.0 [facility] Comment on above: Order Comment: No: D o not add to previous draw Performed By: #### 8 [id number] #### [facility] [address] [place] [address], [facility] Lymphocytes (Bld) [#/Vol] 1.9 10*3/uL Normal 1.2-4.0 [facility] Comment on above: Order Comment: No: D o not add to previous draw Performed By: #### 8 [id number] #### [facility] [address] [place] [address], [facility] Lymphocytes/100 WBC (Bld) 19.4 % Low 20.0-45.0 [facility] Comment on above: Order Comment: No: D o not add to previous draw Performed By: #### 8 [id number] #### [facility] [address] [place] [address], [facility] MCH (RBC) [Entitic mass] 27.5 pg Normal 27.0-33.0 [facility] Comment on above: Order Comment: No: D o not add to previous draw Performed By: #### 8 [id number] #### [facility] [address] [place] [id number], [facility] MCHC (RBC) [Mass/Vol] 32.6 g/dL Normal 32.0-35.0 [facility] Comment on above: Order Comment: No: D o not add to previous draw Performed By: #### 8 [id number] #### [facility] [address] [facility] [place] [address], [facility] MCV (RBC) [Entitic vol] 84.4 fL Normal 82.0-98.0 [facility] Comment on above: Order Comment: No: D o not add to previous draw Performed By: #### 8 [id number] #### [facility] [address] [place] [id number], [facility] Monocytes (Bld) [#/Vol] 1.3 10*3/uL High 0.1-1.0 [facility] Comment on above: Order Comment: No: D o not add to previous draw Performed By: #### 8 [id number] #### [facility] [address] [place] [address], [place] MONOS 13.1 % High 5.0-12.0 [facility] Comment on above: Order Comment: No: D o not add to previous draw Performed By: #### 8 [id number] #### [facility] [address] [place] [address], [place] Neutrophils/100 WBC (Bld) 64.1 % Normal 40.0-72.0 [facility] Comment on above: Order Comment: No: D o not add to previous draw Performed By: #### 8 [id number] #### [facility] [address] [place] [address], [place] Nucleated RBC/100 WBC (Bld) [Ratio] 0 % Normal 0-0 [facility] Comment on above: Order Comment: No: D o not add to previous draw Performed By: #### 8 [id number] #### [facility] [address] [place] [address], [place] PLAT CNT 233 10*3/uL Normal 150-400 [facility] Comment on above: Order Comment: No: D o not add to previous draw Performed By: #### 8 [id number] #### [facility] [address] [place] [address], [place] RBC (Bld) [#/Vol] 3.71 10*6/uL Low 3.80-5.00 [facility] Comment on above: Order Comment: No: D o not add to previous draw Performed By: #### 8 [id number] #### [facility] [address] [place] [address], [place] WBC (Bld) [#/Vol] 9.85 10*3/uL Normal 4.00-10.60 [facility] Comment on above: Order Comment: No: D o not add to previous draw Performed By: #### 8 [id number] #### [address] [place] [address], [facility] CTA ABDOMEN AND PELVISon CTA ABDOMEN AND PELVIS [facility] Department of Radiology [address] [place] [id number] ======== Patient Name: MARIMAR PATEL : 1955 Sex: F Age: Race: White Pt. Location: [id number] Patient Status: D Ordered Date: 07/02/2022 8:20:00 AM Completed Date: 07/02/2022 01:20 PM Requesting Provider: ANASTASIIA CARBALLO Attending Provider: ARGELIA ROMERO Report Copy To: Signs & Symptoms: Other History: See Comments Comments: Other, TAVR protocol Exam: CTA ABDOMEN AND PELVIS ======== CTA ABDOMEN AND PELVIS 07/02/2022 1:20 PM SIGNS AND SYMPTOMS: Aortic valve disease TECHNOLOGIST COMMENTS: TAVR protocol QUESTION FOR THE RADIOLOGIST: Other, TAVR protocol PROTOCOL: Axial CT angiography images were obtained with IV contrast. CONTRAST: TECHNIQUE: Multidetector CT angiography axial slices of the abdomen and pelvis were obtained with IV contrast. Multiplanar reformats, MIP, and volume rendered 3-D images were generated on a separate workstation and reviewed to further define anatomy and possible pathology. Appropriate CT dose lowering techniques were utilized. COMPARISON: 12/26/2012 FINDINGS: Lower Chest: Bilateral pleural effusion; moderate on the left and mild on the right with adjacent compressive atelectasis. ABDOMEN: Liver: Visualized part of the liver demonstrates homogeneous enhancement and no focal lesions. Bile Ducts: Normal caliber. Gallbladder: Metallic clips at the gallbladder fossa from prior cholecystectomy. Pancreas: Within normal limits. Spleen: Within normal limits. Small splenule is seen adjacent to the splenic hilum. Adrenals: Within normal limits. Kidneys: Within normal limits. Pelvis: Reproductive Organs: No pelvic masses. Uterus is not visualized likely from prior hysterectomy. Ureters: Within normal limits. Bladder: Within normal limits. Bowel: Normal caliber. Pelvic clips at the rectosigmoid region likely from prior surgery. Mesenteric Lymph Nodes: No enlarged mesenteric lymph nodes. Peritoneum: No ascites or free air, no fluid collection. Vessels: Atherosclerotic changes with significant vascular calcification seen and. Atherosclerotic plaquing visualized in the abdominal aorta and major branches Retroperitoneum: Within normal limits. Abdominal Wall: Within normal limits. Bones: Bony spurring in the lumbar spine suggesting spondylosis and lower lumbar facet joint disease as well as bilateral mild degenerative sacroiliitis. IMPRESSION: Suggestion of prior cholecystectomy and hysterectomy. Vascular calcifications. Lower lumbar spondylosis. Otherwise, no acute abdominal or pelvic abnormality. All CT scans at this facility use dose modulation, iterative reconstruction, and/or weight based dosing when appropriate to reduce radiation dose to as low as reasonably achievable Electronically signed: Yuni Zhu. Transcribed by: [email or web address], User Resident: Electronically Signed by: YUNI ZHU @ 07/12/2022 01:12 PM Normal [facility] Comment on above: Order Comment: No: D o not add to previous draw No collection time noted on specimen or requisition. The collection time recorded is the time of receipt in the lab. CTA CHESTon 07-02-2022 CTA CHEST [facility] Department of Radiology [address] [place] [id number] ======== Patient Name: MARIMAR PATEL : 1955 Sex: F Age: Race: White Pt. Location: [id number] Patient Status: D Ordered Date: 07/02/2022 8:20:00 AM Completed Date: 07/02/2022 01:20 PM Requesting Provider: ANASTASIIA CARBALLO Attending Provider: ARGELIA ROMERO Report Copy To: Signs & Symptoms: Other History: See Comments Comments: Other, TAVR protocol CTS, EKG gated Exam: CTA CHEST ======== CTA CHEST 07/02/2022 1:20 PM CLINICAL INDICATIONS: Aortic valve disease TECHNOLOGIST COMMENTS: TAVR protocol QUESTIONS PER RADIOLOGIST: Other, TAVR protocol CTS, EKG gated PROTOCOL: Axial CT angiography images were obtained with IV contrast. CONTRAST: Contrast: OMNIPAQUE 350 (LOCM), 135 milliliter, Intravenous TECHNIQUE: Multidetector CT axial slices of the chest were obtained with IV contrast. Multiplanar reformats were performed and viewed on a separate workstation and reviewed to further define anatomy and possible pathology. All CT scans at this facility use dose modulation, iterative reconstruction, and/or weight based dosing when appropriate to reduce radiation dose to as low as reasonably achievable. COMPARISON: Chest CT from 06/29/2022. FINDINGS: Gated none contrast calcium scoring part of the study revealed total calcium scoring of 3572 with type III aortic course valve cusp calcifications Lower neck: Thyroid gland within normal limits, no supraclavicle adenopathy. Vessels: Pulmonary arteries appeared grossly unremarkable. Moderate atherosclerotic changes in the aorta. and coronary arteries. Mediastinum and Gretchen: Within normal limits. Heart: Normal size. No pericardial effusion. Airways: Within normal limits Lungs: Bilateral lower lobe compressive atelectasis. Platelike atelectasis in the right upper lobe. Pleura: Bilateral pleural effusion and small on the right side and moderate on the left side. The fluid extends to the fissure on the right side. Chest Wall: Within normal limits. Upper Abdomen: Please refer to abdomen CT report for full details. Bones: Mild bony spurring in the thoracic and lumbar spine consistent was moderate spondylosis. Sternotomy wires from prior CABG procedure. T aVR measurements: 3-D volume rendered image of the aortic root and proximal ascending aorta as well as coronal reconstruction of the aortic root and proximal ascending aorta Localization of the left cusp, right coronary cusp and noncoronary cusp. Localization of the esophagus in the axial image. 3 cusped view, anterior view and no DEEP SUBMERGENCE VEHICLE OPERATOR-CAU view are obtained in 3-D volume rendered images. The annulus measures 25 x 17.4 mm. The surface area is 3.25 sq cm. Premature 68.6 mm. Embedded geometric suggests a 23 mm valve diameter. Height of the left coronary artery is 15.3 mm from the annulus. Height of the right coronary artery is 18.8 mm from the annulus. The diameter of the left corner sinus is 25.7 mm, right sinus is 23.2 mm and noncoronary sinus is 26.7 mm. Diameter of the sinotubular junction is 23.2 mm, ascending aorta is 23.8 mm and descending infrarenal abdominal aorta is 13.2 mm with atherosclerotic plaques and vascular calcification seen. Diameter of the right common iliac artery is 5.3 mm with vascular calcification seen, right external iliac artery is 4.9 mm and right common femoral artery is 3.6 mm. Significant coarse calcification is seen in the right femoral artery. Diameter of the left common iliac artery is 5.2 mm, diameter of the left external iliac artery is 6.5 mm and diameter of the left common femoral artery is 4.8 mm with vascular calcification seen. 3-D volume rendered images did not reveal significant tortuosity in the right or left common and external iliac arteries. IMPRESSION: T aVR measurements as described above. Total calcium scoring of 3572 with type III coarse aortic valve cusp calcification seen. Bilateral pleural effusions and: Left larger than right with extension into the fissure on the right side and adjacent compressive atelectasis. Significant vascular calcification. Electronically signed: Yuni Zhu. Transcribed by: [email or web address], User Resident: Electronically Signed by: YUNI ZHU @ 07/12/2022 01:06 PM Normal [facility] Comment on above: Order Comment: No: D o not add to previous draw No collection time noted on specimen or requisition. The collection time recorded is the time of receipt in the lab. Cardiovascular Lab Reporton 07-02-2022 Cardiovascular Lab Report [facility] Patient Name: Marimar Patel [facility] Josep MR #: [id number] Department of Physician: Alex Kelly M.D. Division of Service Date: 07/01/2022 Cardiology Birthdate: 1955 Adult Cardiovascular Room #: [id number] [facility] [address] [facility]. [place] [address] Cardiovascular Laboratory Report CLINICAL PRESENTATION: The patient is a 67-year-old female with past medical history significant for CAD, status post CABG in 2012, type 2 diabetes mellitus, hypertension, hyperlipidemia, PAD. The patient admitted with chest pain and diagnosed with NSTEMI. She is also diagnosed with new onset atrial fibrillation and hypertensive urgency. She has a significant murmur on exam. An echocardiogram now shows severe aortic valve stenosis. She presents for coronary and bypass graft angiogram. FINAL IMPRESSION: 3/4 bypass grafts are patent. The OSORIO to LAD is patent. The radial to D1 is patent. The SVG to OM2 is patent. The SVG to RCA is occluded; however, the RCA has moderate disease and is of small caliber, so PCI was not required. PLAN: 1. The patient has a new diagnosis of severe aortic valve stenosis. She should be evaluated for TAVR. 2. Medical therapy for CAD, atrial fibrillation, hypertension, and diabetes as appropriate per Cardiology and medical services. 3. The patient needs close outpatient followup. Per her family, they note that she has not followed up with Cardiology since her CABG surgery. 4. High-intensity statin therapy with LDL goal of less than 70. Add Ezetimibe if needed. PROCEDURES: Coronary angiogram, bypass graft angiogram, left subclavian angiogram, conscious sedation 32 minutes. INDICATION: NSTEMI, severe , history of CAD with prior CABG. PROCEDURE DESCRIPTION: The patient was brought to cardiac catheterization lab in a fasting state. Informed written consent was obtained. She was prepped and draped in usual sterile fashion over the bilateral groins. Time-out was performed. She was given Versed and fentanyl for sedation. A 1% lidocaine was infiltrated in the right femoral artery. Using ultrasound guidance and micropuncture access technique, a 6-Uruguayan sheath was placed in right common femoral artery. Of note, the ultrasound did reveal severe atherosclerosis affecting the common femoral artery. Careful attention was paid to this atheroma, and access was performed with a micropuncture technique just above this atheroma in the mid common femoral artery. Limited femoral angiogram showed adequate placement. Next, coronary and bypass graft angiogram was performed. All catheter exchanges were made over the J-tip guidewire, 6-Uruguayan JL4 was used to engage the left main coronary artery. A 6-[place]ayan JR4 was used to engage the right coronary artery. A 6-[place]ruguayan JR4 was used to engage the radial bypass graft to the D1 and the SVG to the OM2. The 6-Uruguayan JR4 was also used to engage the stump of the SVG to the RCA. Next, left subclavian angiogram was performed and OSORIO was imaged non selectively. At this time, procedure was completed. All catheters and wires removed from the body. The right femoral arterial sheath was removed and the Angio-Seal closure device was used to obtain hemostasis. There was some additional bleeding from the trach, so a QuikClot hemostasis pad was also applied and manual pressure was applied for 10 minutes. At the end of procedure, there were no apparent complications. TOTAL CONTRAST: 70 mL. TOTAL CONSCIOUS SEDATION TIME: 32 minutes. TOTAL FLUOROSCOPY TIME: 5 minutes and 24 seconds, 0.4 Gy. FINDINGS: Aortic pressure 144/51 (MAP 94). CORONARY ANGIOGRAM: 1. Left main coronary artery: Diffuse 50% stenosis. 2. Left anterior descending coronary artery: The LAD is 100% occluded in its proximal to mid segment. 3. Left circumflex coronary artery: Circumflex 100% occluded in its proximal segment. 4. Right coronary artery: The RCA is a small to moderate sized vessel and has proximal 50% stenosis and mid 50% stenosis. The distal RCA is patent. The PDA is a very small caliber vessel, and is patent. Bypass graft angiography: 5. Radial to D1: Patent. 6. SVG to OM2: Patent. 7. SVG to RCA: Occluded. 8. OSORIO to LAD: Patent. Left subclavian angiogram: The left subclavian is patent. There is proximal 20% calcified stenosis. Electronically Signed by: Doyle Betts M.D. 07/06/2022 05:00 P Doyle Betts M.D. Date Dict: 07/01/2022/03:48 P/Doyle Betts M.D. Date Trans: 07/02/2022 10:08 A/abdiaziz [id number] cc: Nik Bell M.D. [address] [place] [address] Normal [facility] MAGNESIUM BLOODon 07-02-2022 Magnesium [Mass/Vol] 1.9 mg/dL Normal 1.9-2.7 [facility] Comment on above: Order Comment: No: D o not add to previous draw Performed By: #### 8 [id number] #### [facility] [address] [place] [address], [place] POC GLUCOSE LABon 07-02-2022 Glucose [Mass/Vol] 268 mg/dL High 70-100 [facility] Comment on above: Performed By: #### 8 [id number] #### [facility] [address] [place] [address], [place] Glucose [Mass/Vol] 255 mg/dL High 70-100 [facility] Comment on above: Performed By: #### 8 [id number] #### [facility] [address] [place] [address], [place] Glucose [Mass/Vol] 173 mg/dL High 70-100 [facility] Comment on above: Performed By: #### 8 [id number] #### [facility] [address] [place] [address], [place] Glucose [Mass/Vol] 193 mg/dL High 70-100 [facility] Comment on above: Performed By: #### 1 0070, [id number], [id number] #### [facility] [address] [place] [address], [place] Glucose [Mass/Vol] 185 mg/dL High 70-100 [facility] Comment on above: Performed By: #### 1 0070, [id number], [id number] #### [facility] [address] [place] [address], [facility] UFH HEPARIN ASSAYon 07-02-20 22 UNFRACTIONATED HEPARIN <0.10 Critically low 0.30-0.70 [facility] Comment on above: Result Comment: RESU LTS CHECKED AND CALLED. ACCURATELY READ BACK BY Jessa Schaefer RN at 2200 PMW 07-02-22. Rivaroxaban and Apixaban will interfere with the anti Xa assay used to monitor UFH and LMWH. Performed By: #### 3 [id number] #### [facility] [address] [place] [address], [facility] BASIC METABOLIC PANELon 06-11 Calcium [Mass/Vol] 8.5 mg/dL Low 8.6-10.3 [facility] Comment on above: Order Comment: No: D o not add to previous draw Performed By: #### 0 0071, [id number] #### [facility] [address] [place] [address], [facility] Chloride [Moles/Vol] 105 mmol/L Normal 98-107 [facility] Comment on above: Order Comment: No: D o not add to previous draw Performed By: #### 0 0071, [id number] #### [facility] [address] [place] [address], [facility] CO2 [Moles/Vol] 22 mmol/L Normal 21-31 [facility] Comment on above: Order Comment: No: D o not add to previous draw Performed By: #### 0 0071, [id number] #### [facility] [address] [place] [address], [facility] Creatinine [Mass/Vol] 0.57 mg/dL Low 0.60-1.20 [facility] Comment on above: Order Comment: No: D o not add to previous draw Performed By: #### 0 0071, [id number] #### [facility] [address] [place] [address], [facility] GFR/1.73 sq M.predicted among non-blacks MDRD (S/P/Bld) [Vol rate/Area] mL/min/{1.73_m2} Normal >60 [facility] Comment on above: Order Comment: No: D o not add to previous draw Result Comment: [facility]'s estimated glomerular filtration rate (eGFR) will no longer include consideration of race in its calculation. The [employer]'s eGFR Task Force developed new recommendations for the estimation of the glomerular filtration rate in the [place] They recommend immediate implementation of the new equation refit without the race variable in all laboratories because the calculation does not include race. In addition to not including race in the calculation and reporting, it included diversity in its development, and has acceptable performance characteristics and potential consequences that do not disproportionately affect any one group of individuals. Performed By: #### 0 0071, [id number] #### [facility] [address] [place] [address], [facility] Glucose [Mass/Vol] 164 mg/dL High 70-100 [facility] Comment on above: Order Comment: No: D o not add to previous draw Performed By: #### 0 0071, 83500 #### [facility] [address] [place] [address], [facility] Potassium [Moles/Vol] 3.8 mmol/L Normal 3.5-5.1 [facility] Comment on above: Order Comment: No: D o not add to previous draw Performed By: #### 0 0071, 26622 #### [facility] [address] [place] [address], [place] Sodium [Moles/Vol] 137 mmol/L Normal 136-145 [facility] Comment on above: Order Comment: No: D o not add to previous draw Performed By: #### 0 0071, 53504 #### [facility] [address] [place] [address], [place] Urea nitrogen [Mass/Vol] 18 mg/dL Normal 7-25 [facility] Comment on above: Order Comment: No: D o not add to previous draw Performed By: #### 0 0071, 12077 #### [facility] [address] [facility] [address], [facility] CBC W/DIFFon 07-01-2022 ABS IMM GRANS 0.1 10*3/uL Normal 0.0-0.2 [facility] Comment on above: Order Comment: No: D o not add to previous draw Performed By: #### 8 [id number] #### [facility] [address] [facility] [place] [place] [address], [facility] ABS NEUTROPHILS 5.1 10*3/uL Normal 1.6-7.6 [facility] Comment on above: Order Comment: No: D o not add to previous draw Performed By: #### 8 [id number] #### [facility] [address] [facility] [place] [place] [address], [facility] Basophils (Bld) [#/Vol] 0.1 10*3/uL Normal 0.0-0.2 [facility] Comment on above: Order Comment: No: D o not add to previous draw Performed By: #### 8 [id number] #### [facility] [address] [facility] [place] [place] [address], [facility] Basophils/100 WBC (Bld) 0.6 % Normal 0.0-1.0 [facility] Comment on above: Order Comment: No: D o not add to previous draw Performed By: #### 8 [id number] #### [facility] [address] [facility] [place] [id number], [facility] Eosinophils (Bld) [#/Vol] 0.3 10*3/uL Normal 0.0-0.5 [facility] Comment on above: Order Comment: No: D o not add to previous draw Performed By: #### 8 [id number] #### [facility] [address] [place] [address], [facility] Eosinophils/100 WBC (Bld) 2.8 % Normal 0.0-6.0 [facility] Comment on above: Order Comment: No: D o not add to previous draw Performed By: #### 8 [id number] #### [facility] [address] [place] [address], [facility] Erythrocyte distribution width (RBC) [Ratio] 13.3 % Normal 11.5-15.0 [facility] Comment on above: Order Comment: No: D o not add to previous draw Performed By: #### 8 [id number] #### [facility] [address] [place] [address], [facility] Hematocrit (Bld) [Volume fraction] 32.6 % Low 36.0-45.0 [facility] Comment on above: Order Comment: No: D o not add to previous draw Performed By: #### 8 [id number] #### [facility] [address] [place] [id number], [facility] Hemoglobin (Bld) [Mass/Vol] 10.6 g/dL Low 12.0-15.0 [facility] Comment on above: Order Comment: No: D o not add to previous draw Performed By: #### 8 [id number] #### [facility] [address] [place] [address], [facility] IMMATURE GRANS 0.7 % Normal 0.0-1.0 [facility] Comment on above: Order Comment: No: D o not add to previous draw Performed By: #### 8 [id number] #### [facility] [address] [place] [id number], [facility] Lymphocytes (Bld) [#/Vol] 2.4 10*3/uL Normal 1.2-4.0 [facility] Comment on above: Order Comment: No: D o not add to previous draw Performed By: #### 8 [id number] #### [facility] [address] [place] [id number], [facility] Lymphocytes/100 WBC (Bld) 26.6 % Normal 20.0-45.0 [facility] Comment on above: Order Comment: No: D o not add to previous draw Performed By: #### 8 [id number] #### [facility] [address] [place] [address], [facility] MCH (RBC) [Entitic mass] 27.0 pg Normal 27.0-33.0 [facility] Comment on above: Order Comment: No: D o not add to previous draw Performed By: #### 8 [id number] #### [facility] [address] [place] [address], [facility] MCHC (RBC) [Mass/Vol] 32.5 g/dL Normal 32.0-35.0 [facility] Comment on above: Order Comment: No: D o not add to previous draw Performed By: #### 8 [id number] #### [facility] [address] [facility] [place] [address], [facility] MCV (RBC) [Entitic vol] 83.0 fL Normal 82.0-98.0 [facility] Comment on above: Order Comment: No: D o not add to previous draw Performed By: #### 8 [id number] #### [facility] [address] [facility] [place] [place] [address], [facility] Monocytes (Bld) [#/Vol] 1.2 10*3/uL High 0.1-1.0 [facility] Comment on above: Order Comment: No: D o not add to previous draw Performed By: #### 8 [id number] #### [facility] [address] [facility] [place] [id number], [facility] MONOS 13.0 % High 5.0-12.0 [facility] Comment on above: Order Comment: No: D o not add to previous draw Performed By: #### 8 5499 #### [facility] [address] [place] [address], [facility] Neutrophils/100 WBC (Bld) 56.3 % Normal 40.0-72.0 [facility] Comment on above: Order Comment: No: D o not add to previous draw Performed By: #### 8 [id number] #### [facility] [address] [place] [address], [facility] Nucleated RBC/100 WBC (Bld) [Ratio] 0 % Normal 0-0 [facility] Comment on above: Order Comment: No: D o not add to previous draw Performed By: #### 8 [id number] #### [facility] [address] [place] [address], [facility] PLAT CNT 247 10*3/uL Normal 150-400 [facility] Comment on above: Order Comment: No: D o not add to previous draw Performed By: #### 8 [id number] #### [facility] [address] [facility] [place] [address], [facility] RBC (Bld) [#/Vol] 3.93 10*6/uL Normal 3.80-5.00 [facility] Comment on above: Order Comment: No: D o not add to previous draw Performed By: #### 8 [id number] #### [facility] [address] [facility] [place] [address], [facility] WBC (Bld) [#/Vol] 9.05 10*3/uL Normal 4.00-10.60 [facility] Comment on above: Order Comment: No: D o not add to previous draw Performed By: #### 8 [id number] #### [facility] [address] [facility] [place] [address], [facility] MAGNESIUM BLOODon 07-01-2022 Magnesium [Mass/Vol] 1.7 mg/dL Low 1.9-2.7 [facility] Comment on above: Order Comment: No: D o not add to previous draw Performed By: #### 0 0071, 22827 #### [facility] [address] [place] [address], [facility] POC GLUCOSE LABon 07-01-2022 Glucose [Mass/Vol] 253 mg/dL High 70-100 [facility] Comment on above: Performed By: #### 8 5499 #### [facility] [address] [place] [address], [facility] Glucose [Mass/Vol] 160 mg/dL High 70-100 [facility] Comment on above: Performed By: #### 8 5499 #### [facility] [address] [place] [address], [facility] Glucose [Mass/Vol] 174 mg/dL High 70-100 [facility] Comment on above: Performed By: #### 8 5499 #### [facility] [address] [facility] [place] [address], [facility] Glucose [Mass/Vol] 185 mg/dL High 70-100 [facility] Comment on above: Performed By: #### 8 5499 #### [facility] [address] [facility] [place] [address], [facility] Glucose [Mass/Vol] 176 mg/dL High 70-100 [facility] Comment on above: Performed By: #### 8 5499 #### [facility] [address] [place] [address], [facility] UFH HEPARIN ASSAYon 07-01-20 22 UNFRACTIONATED HEPARIN 0.88 IU/mL High 0.30-0.70 Th e [facility] Comment on above: Result Comment: [place] roxaban and Apixaban will interfere with the anti Xa assay used to monitor UFH and LMWH. Performed By: #### 3 5200 #### [facility] [address] [place] [address], [facility] BASIC METABOLIC PANELon 08-2 Calcium [Mass/Vol] 8.5 mg/dL Low 8.6-10.3 [facility] Comment on above: Order Comment: No: D o not add to previous draw Performed By: #### 1 0070, 27464, 83050 #### [facility] [address] [place] [id number], [facility] Chloride [Moles/Vol] 103 mmol/L Normal 98-107 [facility] Comment on above: Order Comment: No: D o not add to previous draw Performed By: #### 1 0070, 95766, 33954 #### [facility] [address] [place] [address], [place] CO2 [Moles/Vol] 25 mmol/L Normal 21-31 [facility] Comment on above: Order Comment: No: D o not add to previous draw Performed By: #### 1 0070, 03457, 48369 #### [facility] [address] [place] [id number], [facility] Creatinine [Mass/Vol] 0.50 mg/dL Low 0.60-1.20 [facility] Comment on above: Order Comment: No: D o not add to previous draw Performed By: #### 1 0, 01550, 08985 #### [facility] [address] [place] [address], [place] GFR/1.73 sq M.predicted among non-blacks MDRD (S/P/Bld) [Vol rate/Area] mL/min/{1.73_m2} Normal >60 [facility] Comment on above: Order Comment: No: D o not add to previous draw Result Comment: [facility]'s estimated glomerular filtration rate (eGFR) will no longer include consideration of race in its calculation. The [employer]'s eGFR Task Force developed new recommendations for the estimation of the glomerular filtration rate in the [place] They recommend immediate implementation of the new equation refit without the race variable in all laboratories because the calculation does not include race. In addition to not including race in the calculation and reporting, it included diversity in its development, and has acceptable performance characteristics and potential consequences that do not disproportionately affect any one group of individuals. Performed By: #### 1 0070, 26987, 23460 #### [facility] [address] [place] [address], [place] Glucose [Mass/Vol] 166 mg/dL High 70-100 [facility] Comment on above: Order Comment: No: D o not add to previous draw Performed By: #### 1 0, 15498, 43214 #### [facility] [address] [facility] Potassium [Moles/Vol] 3.3 mmol/L Low 3.5-5.1 [facility] Comment on above: Order Comment: No: D o not add to previous draw Performed By: #### 1 0, 94217, 15972 #### [facility] [address] [facility] Sodium [Moles/Vol] 138 mmol/L Normal 136-145 [facility] Comment on above: Order Comment: No: D o not add to previous draw Performed By: #### 1 0, 00851, 30953 #### [facility] [address] Urea nitrogen [Mass/Vol] 17 mg/dL Normal 7-25 [facility] Comment on above: Order Comment: No: D o not add to previous draw Performed By: #### 1 0, 78118, 30540 #### [facility] [address] CBC W/DIFFon 06-30-2022 ABS IMM GRANS 0.1 10*3/uL Normal 0.0-0.2 [facility] Comment on above: Order Comment: No: D o not add to previous draw No collection time noted on specimen or requisition. The collection time recorded is the time of receipt in the lab. Performed By: #### 3 5200 #### [facility] [address] ABS NEUTROPHILS 4.4 10*3/uL Normal 1.6-7.6 [facility] Comment on above: Order Comment: No: D o not add to previous draw No collection time noted on specimen or requisition. The collection time recorded is the time of receipt in the lab. Performed By: #### 3 5200 #### [facility] [address] [place] [address], [facility] Basophils (Bld) [#/Vol] 0.1 10*3/uL Normal 0.0-0.2 [facility] Comment on above: Order Comment: No: D o not add to previous draw No collection time noted on specimen or requisition. The collection time recorded is the time of receipt in the lab. Performed By: #### 3 5200 #### [facility] [address] [place] [address], [facility] Basophils/100 WBC (Bld) 0.6 % Normal 0.0-1.0 [facility] Comment on above: Order Comment: No: D o not add to previous draw No collection time noted on specimen or requisition. The collection time recorded is the time of receipt in the lab. Performed By: #### 3 5200 #### [facility] [address] [place] [address], [facility] Eosinophils (Bld) [#/Vol] 0.3 10*3/uL Normal 0.0-0.5 [facility] Comment on above: Order Comment: No: D o not add to previous draw No collection time noted on specimen or requisition. The collection time recorded is the time of receipt in the lab. Performed By: #### 3 5200 #### [facility] [address] [place] [address], [facility] Eosinophils/100 WBC (Bld) 3.3 % Normal 0.0-6.0 [facility] Comment on above: Order Comment: No: D o not add to previous draw No collection time noted on specimen or requisition. The collection time recorded is the time of receipt in the lab. Performed By: #### 3 5200 #### [facility] [address] Erythrocyte distribution width (RBC) [Ratio] 13.2 % Normal 11.5-15.0 [facility] Comment on above: Order Comment: No: D o not add to previous draw No collection time noted on specimen or requisition. The collection time recorded is the time of receipt in the lab. Performed By: #### 3 5200 #### [facility] [address] [place] [address], [facility] Hematocrit (Bld) [Volume fraction] 35.3 % Low 36.0-45.0 [facility] Comment on above: Order Comment: No: D o not add to previous draw No collection time noted on specimen or requisition. The collection time recorded is the time of receipt in the lab. Performed By: #### 3 5200 #### [facility] [address] [place] [address], [facility] Hemoglobin (Bld) [Mass/Vol] 11.2 g/dL Low 12.0-15.0 [facility] Comment on above: Order Comment: No: D o not add to previous draw No collection time noted on specimen or requisition. The collection time recorded is the time of receipt in the lab. Performed By: #### 3 5200 #### [facility] [address] IMMATURE GRANS 0.7 % Normal 0.0-1.0 [facility] Comment on above: Order Comment: No: D o not add to previous draw No collection time noted on specimen or requisition. The collection time recorded is the time of receipt in the lab. Performed By: #### 3 5200 #### [facility] [address] [place] [address], [facility] Lymphocytes (Bld) [#/Vol] 2.3 10*3/uL Normal 1.2-4.0 [facility] Comment on above: Order Comment: No: D o not add to previous draw No collection time noted on specimen or requisition. The collection time recorded is the time of receipt in the lab. Performed By: #### 3 5200 #### [facility] [address] [place] [address], [facility] Lymphocytes/100 WBC (Bld) 28.1 % Normal 20.0-45.0 [facility] Comment on above: Order Comment: No: D o not add to previous draw No collection time noted on specimen or requisition. The collection time recorded is the time of receipt in the lab. Performed By: #### 3 5200 #### [facility] [address] [place] [address], [facility] MCH (RBC) [Entitic mass] 26.3 pg Low 27.0-33.0 [facility] Comment on above: Order Comment: No: D o not add to previous draw No collection time noted on specimen or requisition. The collection time recorded is the time of receipt in the lab. Performed By: #### 3 5200 #### [facility] [address] MCHC (RBC) [Mass/Vol] 31.7 g/dL Low 32.0-35.0 [facility] Comment on above: Order Comment: No: D o not add to previous draw No collection time noted on specimen or requisition. The collection time recorded is the time of receipt in the lab. Performed By: #### 3 5200 #### [facility] [address] MCV (RBC) [Entitic vol] 82.9 fL Normal 82.0-98.0 [facility] Comment on above: Order Comment: No: D o not add to previous draw No collection time noted on specimen or requisition. The collection time recorded is the time of receipt in the lab. Performed By: #### 3 5200 #### [facility] [address] [place] [address], [facility] Monocytes (Bld) [#/Vol] 1.1 10*3/uL High 0.1-1.0 [facility] Comment on above: Order Comment: No: D o not add to previous draw No collection time noted on specimen or requisition. The collection time recorded is the time of receipt in the lab. Performed By: #### 3 5200 #### [facility] [address] [facility] [place] [place] [address], [facility] MONOS 13.3 % High 5.0-12.0 [facility] Comment on above: Order Comment: No: D o not add to previous draw No collection time noted on specimen or requisition. The collection time recorded is the time of receipt in the lab. Performed By: #### 3 5200 #### [facility] [address] [facility] [place] [place] [address], [facility] Neutrophils/100 WBC (Bld) 54.0 % Normal 40.0-72.0 [facility] Comment on above: Order Comment: No: D o not add to previous draw No collection time noted on specimen or requisition. The collection time recorded is the time of receipt in the lab. Performed By: #### 3 5200 #### [facility] [address] [facility] [place] [address], [facility] Nucleated RBC/100 WBC (Bld) [Ratio] 0 % Normal 0-0 [facility] Comment on above: Order Comment: No: D o not add to previous draw No collection time noted on specimen or requisition. The collection time recorded is the time of receipt in the lab. Performed By: #### 3 5200 #### [facility] [address] [facility] [place] [address], [facility] PLAT CNT 256 10*3/uL Normal 150-400 [facility] Comment on above: Order Comment: No: D o not add to previous draw No collection time noted on specimen or requisition. The collection time recorded is the time of receipt in the lab. Performed By: #### 3 5200 #### [facility] [address] [facility] [place] [address], [facility] RBC (Bld) [#/Vol] 4.26 10*6/uL Normal 3.80-5.00 [facility] Comment on above: Order Comment: No: D o not add to previous draw No collection time noted on specimen or requisition. The collection time recorded is the time of receipt in the lab. Performed By: #### 3 5200 #### [facility] [address] [facility] [address], [facility] WBC (Bld) [#/Vol] 8.18 10*3/uL Normal 4.00-10.60 [facility] Comment on above: Order Comment: No: D o not add to previous draw No collection time noted on specimen or requisition. The collection time recorded is the time of receipt in the lab. Performed By: #### 3 5200 #### [facility] [address] [facility] MAGNESIUM BLOODon 06-30-2022 Magnesium [Mass/Vol] 1.8 mg/dL Low 1.9-2.7 [facility] Comment on above: Order Comment: No: D o not add to previous draw Performed By: #### 1 0070, 07047, 30660 #### [facility] [address] [facility] POC GLUCOSE LABon 06-30-2022 Glucose [Mass/Vol] 266 mg/dL High 70-100 [facility] Comment on above: Performed By: #### 8 5499 #### [facility] [address] [facility] Glucose [Mass/Vol] 346 mg/dL High 70-100 [facility] Comment on above: Performed By: #### 1 0, 93838, 52126 #### [facility] [address] [facility] Glucose [Mass/Vol] 206 mg/dL High 70-100 [facility] Comment on above: Performed By: #### 1 0070, 69107, 27835 #### [facility] [address] [facility] [place] [address], [facility] TROPONIN-Ion 06-30-2022 Troponin I.cardiac [Mass/Vol] 1.03 ng/mL Critically high 0.00-0.04 [facility] Comment on above: Result Comment: M-TX EVIOUS CRITICAL RESULT REFERENCE RANGES: 0.00 - 0.04 ng/ml NORMAL 0.05 - 0.50 ng/ml INDETERMINATE > 0.50 ng/ml CONSISTENT WITH AN M.I. Performed By: #### 1 0070, 45731, 07306 #### [facility] [address] UFH HEPARIN ASSAYon 06-30-20 UNFRACTIONATED HEPARIN 0.70 IU/mL Normal 0.30-0.70 Th e [facility] Comment on above: Result Comment: [place] roxaban and Apixaban will interfere with the anti Xa assay used to monitor UFH and LMWH. Performed By: #### 3 5200 #### [facility] [address] UNFRACTIONATED HEPARIN 0.61 IU/mL Normal 0.30-0.70 Th e [facility] Comment on above: Result Comment: [place] roxaban and Apixaban will interfere with the anti Xa assay used to monitor UFH and LMWH. Performed By: #### 8 [id number] #### [facility] [address] [facility]. [address] UNFRACTIONATED HEPARIN 0.85 IU/mL High 0.30-0.70 Th e [facility] Comment on above: Result Comment: [place] roxaban and Apixaban will interfere with the anti Xa assay used to monitor UFH and LMWH. Performed By: #### 3 [id number] #### [facility] [address] [facility]. [address] CBC COMPLETE BLOOD COUNTon 0 06-29-2022 Erythrocyte distribution width (RBC) [Ratio] 13.4 % Normal 11.5-15.0 The [facility] Comment on above: Order Comment: No: D o not add to previous draw Performed By: #### 8 2079 #### [facility] [address] Hematocrit (Bld) [Volume fraction] 34.3 % Low 36.0-45.0 The [facility] Comment on above: Order Comment: No: D o not add to previous draw Performed By: #### 8 [id number] #### [facility] [address] [place] [address], [facility] Hemoglobin (Bld) [Mass/Vol] 11.3 g/dL Low 12.0-15.0 The [facility] Comment on above: Order Comment: No: D o not add to previous draw Performed By: #### 8 [id number] #### [facility] [address] [place] [address], [facility] MCH (RBC) [Entitic mass] 27.2 pg Normal 27.0-33.0 The [facility] Comment on above: Order Comment: No: D o not add to previous draw Performed By: #### 8 [id number] #### [facility] [address] [place] [address], [facility] MCHC (RBC) [Mass/Vol] 32.9 g/dL Normal 32.0-35.0 The [facility] Comment on above: Order Comment: No: D o not add to previous draw Performed By: #### 8 [id number] #### [facility] [address] [place] [id number], [facility] MCV (RBC) [Entitic vol] 82.7 fL Normal 82.0-98.0 The [facility] Comment on above: Order Comment: No: D o not add to previous draw Performed By: #### 8 [id number] #### [facility] [address] [place] [address], [facility] Nucleated RBC/100 WBC (Bld) [Ratio] 0 % Normal 0-0 The [facility] Comment on above: Order Comment: No: D o not add to previous draw Performed By: #### 8 [id number] #### [facility] [address] [place] [address], [facility] PLAT CNT 234 10*3/uL Normal 150-400 The [facility] Comment on above: Order Comment: No: D o not add to previous draw Performed By: #### 8 [id number] #### [facility] [address] [place] [id number], [facility] RBC (Bld) [#/Vol] 4.15 10*6/uL Normal 3.80-5.00 The [facility] Comment on above: Order Comment: No: D o not add to previous draw Performed By: #### 8 [id number] #### [facility] [address] [place] [id number], [facility] WBC (Bld) [#/Vol] 7.28 10*3/uL Normal 4.00-10.60 The [facility] Comment on above: Order Comment: No: D o not add to previous draw Performed By: #### 8 [id number] #### [facility] [address] [place] [id number], [facility] Erythrocyte distribution width (RBC) [Ratio] 13.3 % Normal 11.5-15.0 The [facility] Comment on above: Order Comment: No: D o not add to previous draw No collection time noted on specimen or requisition. The collection time recorded is the time of receipt in the lab. Performed By: #### 3 [id number] #### [facility] [address] [place] [address], [facility] Hematocrit (Bld) [Volume fraction] 33.4 % Low 36.0-45.0 The [facility] Comment on above: Order Comment: No: D o not add to previous draw No collection time noted on specimen or requisition. The collection time recorded is the time of receipt in the lab. Performed By: #### 3 [id number] #### [facility] [address] [place] [id number], [facility] Hemoglobin (Bld) [Mass/Vol] 10.8 g/dL Low 12.0-15.0 The [facility] Comment on above: Order Comment: No: D o not add to previous draw No collection time noted on specimen or requisition. The collection time recorded is the time of receipt in the lab. Performed By: #### 3 [id number] #### [facility] [address] MCH (RBC) [Entitic mass] 26.8 pg Low 27.0-33.0 The [facility] Comment on above: Order Comment: No: D o not add to previous draw No collection time noted on specimen or requisition. The collection time recorded is the time of receipt in the lab. Performed By: #### 3 [id number] #### [facility] [address] MCHC (RBC) [Mass/Vol] 32.3 g/dL Normal 32.0-35.0 The [facility] Comment on above: Order Comment: No: D o not add to previous draw No collection time noted on specimen or requisition. The collection time recorded is the time of receipt in the lab. Performed By: #### 3 [id number] #### [facility] [address] MCV (RBC) [Entitic vol] 82.9 fL Normal 82.0-98.0 The [facility] Comment on above: Order Comment: No: D o not add to previous draw No collection time noted on specimen or requisition. The collection time recorded is the time of receipt in the lab. Performed By: #### 3 [id number] #### [facility] [address] Nucleated RBC/100 WBC (Bld) [Ratio] 0 % Normal 0-0 The [facility] Comment on above: Order Comment: No: D o not add to previous draw No collection time noted on specimen or requisition. The collection time recorded is the time of receipt in the lab. Performed By: #### 3 [id number] #### [facility] [address] PLAT CNT 227 10*3/uL Normal 150-400 The [facility] Comment on above: Order Comment: No: D o not add to previous draw No collection time noted on specimen or requisition. The collection time recorded is the time of receipt in the lab. Performed By: #### 3 [id number] #### [facility] [address] [place] [address], [facility] RBC (Bld) [#/Vol] 4.03 10*6/uL Normal 3.80-5.00 The [facility] Comment on above: Order Comment: No: D o not add to previous draw No collection time noted on specimen or requisition. The collection time recorded is the time of receipt in the lab. Performed By: #### 3 [id number] #### [facility] [address] [place] [address], [facility] WBC (Bld) [#/Vol] 7.85 10*3/uL Normal 4.00-10.60 The [facility] Comment on above: Order Comment: No: D o not add to previous draw No collection time noted on specimen or requisition. The collection time recorded is the time of receipt in the lab. Performed By: #### 3 [id number] #### [facility] [address] CBC W/DIFFon 06-29-2022 ABS IMM GRANS 0.0 10*3/uL Normal 0.0-0.2 The [facility] Comment on above: Order Comment: No co llection time noted on specimen or requisition. The collection timerecorded is the time of receipt in the lab. Performed By: #### 8 [id number] #### [facility] [address] ABS NEUTROPHILS 5.2 10*3/uL Normal 1.6-7.6 The [facility] Comment on above: Order Comment: No co llection time noted on specimen or requisition. The collection timerecorded is the time of receipt in the lab. Performed By: #### 8 [id number] #### [facility] [address] [place] [address], [facility] Basophils (Bld) [#/Vol] 0.0 10*3/uL Normal 0.0-0.2 The [facility] Comment on above: Order Comment: No co llection time noted on specimen or requisition. The collection timerecorded is the time of receipt in the lab. Performed By: #### 8 [id number] #### [facility] [address] [place] [address], [facility] Basophils/100 WBC (Bld) 0.5 % Normal 0.0-1.0 The [facility] Comment on above: Order Comment: No co llection time noted on specimen or requisition. The collection timerecorded is the time of receipt in the lab. Performed By: #### 8 [id number] #### [facility] [address] [facility] [address], [facility] Eosinophils (Bld) [#/Vol] 0.1 10*3/uL Normal 0.0-0.5 The [facility] Comment on above: Order Comment: No co llection time noted on specimen or requisition. The collection timerecorded is the time of receipt in the lab. Performed By: #### 8 [id number] #### [facility] [address] [facility] [address], [facility] Eosinophils/100 WBC (Bld) 1.3 % Normal 0.0-6.0 The [facility] Comment on above: Order Comment: No co llection time noted on specimen or requisition. The collection timerecorded is the time of receipt in the lab. Performed By: #### 8 [id number] #### [facility] [address] [facility] [place] [address], [facility] Erythrocyte distribution width (RBC) [Ratio] 13.3 % Normal 11.5-15.0 The [facility] Comment on above: Order Comment: No co llection time noted on specimen or requisition. The collection timerecorded is the time of receipt in the lab. Performed By: #### 8 [id number] #### [facility] [address] [place] [address], [facility] Hematocrit (Bld) [Volume fraction] 34.0 % Low 36.0-45.0 The [facility] Comment on above: Order Comment: No co llection time noted on specimen or requisition. The collection timerecorded is the time of receipt in the lab. Performed By: #### 8 [id number] #### [facility] [address] [facility] [place] [address], [facility] Hemoglobin (Bld) [Mass/Vol] 11.4 g/dL Low 12.0-15.0 The [facility] Comment on above: Order Comment: No co llection time noted on specimen or requisition. The collection timerecorded is the time of receipt in the lab. Performed By: #### 8 [id number] #### [facility] [address] IMMATURE GRANS 0.4 % Normal 0.0-1.0 The [facility] Comment on above: Order Comment: No co llection time noted on specimen or requisition. The collection timerecorded is the time of receipt in the lab. Performed By: #### 8 [id number] #### [facility] [address] [place] [address], [facility] Lymphocytes (Bld) [#/Vol] 1.5 10*3/uL Normal 1.2-4.0 The [facility] Comment on above: Order Comment: No co llection time noted on specimen or requisition. The collection timerecorded is the time of receipt in the lab. Performed By: #### 8 [id number] #### [facility] [address] [facility] [address], [facility] Lymphocytes/100 WBC (Bld) 19.5 % Low 20.0-45.0 The [facility] Comment on above: Order Comment: No co llection time noted on specimen or requisition. The collection timerecorded is the time of receipt in the lab. Performed By: #### 8 [id number] #### [facility] [address] [facility] [address], [facility] MCH (RBC) [Entitic mass] 27.7 pg Normal 27.0-33.0 The [facility] Comment on above: Order Comment: No co llection time noted on specimen or requisition. The collection timerecorded is the time of receipt in the lab. Performed By: #### 8 [id number] #### [facility] [address] MCHC (RBC) [Mass/Vol] 33.5 g/dL Normal 32.0-35.0 The [facility] Comment on above: Order Comment: No co llection time noted on specimen or requisition. The collection timerecorded is the time of receipt in the lab. Performed By: #### 8 [id number] #### [facility] 3000 [facility]. [address] MCV (RBC) [Entitic vol] 82.7 fL Normal 82.0-98.0 The [facility] Comment on above: Order Comment: No co llection time noted on specimen or requisition. The collection timerecorded is the time of receipt in the lab. Performed By: #### 8 [id number] #### [facility] [address] Monocytes (Bld) [#/Vol] 1.0 10*3/uL Normal 0.1-1.0 The [facility] Comment on above: Order Comment: No co llection time noted on specimen or requisition. The collection timerecorded is the time of receipt in the lab. Performed By: #### 8 [id number] #### [facility] [address] MONOS 12.5 % High 5.0-12.0 The [facility] Comment on above: Order Comment: No co llection time noted on specimen or requisition. The collection timerecorded is the time of receipt in the lab. Performed By: #### 8 [id number] #### [facility] [address] Neutrophils/100 WBC (Bld) 65.8 % Normal 40.0-72.0 The [facility] Comment on above: Order Comment: No co llection time noted on specimen or requisition. The collection timerecorded is the time of receipt in the lab. Performed By: #### 8 [id number] #### [facility] [address] [facility]. [address] Nucleated RBC/100 WBC (Bld) [Ratio] 0 % Normal 0-0 The [facility] Comment on above: Order Comment: No co llection time noted on specimen or requisition. The collection timerecorded is the time of receipt in the lab. Performed By: #### 8 [id number] #### [facility] [address] [place] [address], [facility] PLAT CNT 235 10*3/uL Normal 150-400 [facility] Comment on above: Order Comment: No co llection time noted on specimen or requisition. The collection timerecorded is the time of receipt in the lab. Performed By: #### 8 [id number] #### [facility] [address] [facility] [address], [facility] RBC (Bld) [#/Vol] 4.11 10*6/uL Normal 3.80-5.00 The [facility] Comment on above: Order Comment: No co llection time noted on specimen or requisition. The collection timerecorded is the time of receipt in the lab. Performed By: #### 8 [id number] #### [facility] [address] [facility]. [address] WBC (Bld) [#/Vol] 7.91 10*3/uL Normal 4.00-10.60 [facility] Comment on above: Order Comment: No co llection time noted on specimen or requisition. The collection timerecorded is the time of receipt in the lab. Performed By: #### 8 [id number] #### [facility] [address] [facility] [address], [facility] COMP METABOLIC PANELon 06-29 Albumin [Mass/Vol] 2.9 g/dL Low 3.5-5.7 [facility] Comment on above: Order Comment: No: D o not add to previous draw No collection time noted on specimen or requisition. The collection time recorded is the time of receipt in the lab. Performed By: #### 3 [id number] #### [facility] [address] [place] [address], [facility] ALKALINE PHOSPH 88 IU/L Normal 34-104 The [facility] Comment on above: Order Comment: No: D o not add to previous draw No collection time noted on specimen or requisition. The collection time recorded is the time of receipt in the lab. Performed By: #### 3 179 #### [facility] [address] [place] [id number], [facility] ALT [Catalytic activity/Vol] 21 U/L Normal 7-52 [facility] Comment on above: Order Comment: No: D o not add to previous draw No collection time noted on specimen or requisition. The collection time recorded is the time of receipt in the lab. Performed By: #### 3 [id number] #### [facility] [address] [place] [address], [facility] AST [Catalytic activity/Vol] 27 U/L Normal 13-39 The [facility] Comment on above: Order Comment: No: D o not add to previous draw No collection time noted on specimen or requisition. The collection time recorded is the time of receipt in the lab. Performed By: #### 3 [id number] #### [facility] [address] [place] [address], [facility] Bilirubin [Mass/Vol] 0.5 mg/dL Normal 0.3-1.0 [facility] Comment on above: Order Comment: No: D o not add to previous draw No collection time noted on specimen or requisition. The collection time recorded is the time of receipt in the lab. Performed By: #### 3 1791 #### [facility] [address] [place] [address], [facility] Calcium [Mass/Vol] 8.2 mg/dL Low 8.6-10.3 [facility] Comment on above: Order Comment: No: D o not add to previous draw No collection time noted on specimen or requisition. The collection time recorded is the time of receipt in the lab. Performed By: #### 3 1791 #### [facility] [address] [place] [address], [facility] Chloride [Moles/Vol] 101 mmol/L Normal 98-107 The [facility] Comment on above: Order Comment: No: D o not add to previous draw No collection time noted on specimen or requisition. The collection time recorded is the time of receipt in the lab. Performed By: #### 3 [id number] #### [facility] [address] [place] [address], [facility] CO2 [Moles/Vol] 22 mmol/L Normal 21-31 [facility] Comment on above: Order Comment: No: D o not add to previous draw No collection time noted on specimen or requisition. The collection time recorded is the time of receipt in the lab. Performed By: #### 3 1791 #### [facility] [address] [place] [address], [facility] Creatinine [Mass/Vol] 0.45 mg/dL Low 0.60-1.20 The [facility] Comment on above: Order Comment: No: D o not add to previous draw No collection time noted on specimen or requisition. The collection time recorded is the time of receipt in the lab. Performed By: #### 3 1791 #### [facility] [address] [place] [address], [facility] GFR/1.73 sq M.predicted among non-blacks MDRD (S/P/Bld) [Vol rate/Area] mL/min/{1.73_m2} Normal >60 The [facility] Comment on above: Order Comment: No: D o not add to previous draw No collection time noted on specimen or requisition. The collection time recorded is the time of receipt in the lab. Result Comment: [facility]'s estimated glomerular filtration rate (eGFR) will no longer include consideration of race in its calculation. The [employer]'s eGFR Task Force developed new recommendations for the estimation of the glomerular filtration rate in the [place] They recommend immediate implementation of the new equation refit without the race variable in all laboratories because the calculation does not include race. In addition to not including race in the calculation and reporting, it included diversity in its development, and has acceptable performance characteristics and potential consequences that do not disproportionately affect any one group of individuals. Performed By: #### 3 [id number] #### [facility] [address] [place] [address], [facility] Glucose [Mass/Vol] 278 mg/dL High 70-100 The [facility] Comment on above: Order Comment: No: D o not add to previous draw No collection time noted on specimen or requisition. The collection time recorded is the time of receipt in the lab. Performed By: #### 3 1791 #### [facility] [address] [place] [address], [facility] Potassium [Moles/Vol] 3.8 mmol/L Normal 3.5-5.1 [facility] Comment on above: Order Comment: No: D o not add to previous draw No collection time noted on specimen or requisition. The collection time recorded is the time of receipt in the lab. Performed By: #### 3 [id number] #### [facility] 3000 [facility] [place] [address], [facility] Protein [Mass/Vol] 5.3 g/dL Low 6.0-8.3 [facility] Comment on above: Order Comment: No: D o not add to previous draw No collection time noted on specimen or requisition. The collection time recorded is the time of receipt in the lab. Performed By: #### 3 1791 #### [facility] [address] [place] [address], [facility] Sodium [Moles/Vol] 133 mmol/L Low 136-145 [facility] Comment on above: Order Comment: No: D o not add to previous draw No collection time noted on specimen or requisition. The collection time recorded is the time of receipt in the lab. Performed By: #### 3 1791 #### [address] Urea nitrogen [Mass/Vol] 19 mg/dL Normal 7-25 [facility] Comment on above: Order Comment: No: D o not add to previous draw No collection time noted on specimen or requisition. The collection time recorded is the time of receipt in the lab. Performed By: #### 3 1791 #### [address] CTA CHESTon 06-29-2022 CTA CHEST [facility] Department of Radiology [address] [place], [place] [id number] ======== Patient Name: MARIMAR PATEL : 1955 Sex: F Age: Race: White Pt. Location: [facility] Patient Status: E Ordered Date: 2022 11:35:00 PM Completed Date: 2022 11:58 PM Requesting Provider: JACKIE LI Attending Provider: ROBB MORALES Report Copy To: Signs & Symptoms: Chest Pain History: See Comments Comments: Pulmonary Embolism Exam: CTA CHEST ======== CTA CHEST 2022 11:58 PM CLINICAL INDICATIONS: Chest Pain TECHNOLOGIST COMMENTS: pt. c/o chest pain and SOB x 2 days, hx. CABG, rule out PE. QUESTION FOR RADIOLOGISTS: Pulmonary Embolism PROTOCOL: Axial CT angiography images were obtained with IV contrast. CONTRAST: Contrast: OMNIPAQUE 350 (LOCM), 100 milliliter, Intravenous TECHNIQUE: Multidetector CT angiography axial slices of the chest were obtained with IV contrast. Multiplanar reformats, MIP, and volume rendered 3-D images were generated on a separate workstation and reviewed to further define anatomy and possible pathology. All CT scans at this facility use dose modulation, iterative reconstruction, and/or weight based dosing when appropriate to reduce radiation dose to as low as reasonably achievable. COMPARISON: 03/27/2013 FINDINGS: Satisfactory opacification of the pulmonary arterial system. No evidence of acute pulmonary embolism to the segmental level. Pulmonary artery is normal in caliber. Thoracic aorta is normal in caliber with conventional branching aortic arch anatomy. Calcified and noncalcified plaques of the thoracic aorta and origins of the great vessels. Heavy coronary artery calcifications. Changes of CABG. Fibrofatty metaplasia left ventricular apex. No pericardial effusion. Heart is enlarged. No enlarged thoracic lymph nodes. Unremarkable visualized esophagus. Bilateral small pleural effusions, adjacent compressive atelectasis. Subtle smooth intralobular septal thickening. Fluid tracking in the right major fissure. Atelectasis or scarring in the right upper lobe and lingula. No pneumothorax. Respiratory motion degrades assessment at the lung bases. Tracheobronchial tree is patent. No acute abnormality in the visualized upper abdomen. No acute compression deformity. Advanced degenerative changes C6-C7. IMPRESSION: No evidence of acute pulmonary embolism to the segmental level. Cardiomegaly, bilateral small pleural effusions, smooth interlobular septal thickening which may relate to fluid overload state or cardiac dysfunction/failure. Approved by:Hill Tineo06/29/2022 12:40 AM. I, Shane Baldwin,have reviewed the image(s) and agree with the findings in this report. Electronically signed: Shane Baldwin. Transcribed by: [email or web address], User Resident: HILL RUSS Electronically Signed by: SHANE BALDWIN @ 06/29/2022 01:00 AM I personally read this/these film(s) with this resident Normal [facility] Comment on above: Order Comment: Pulmo nary Embolism HEMOGLOBIN A1Con 06-29-2022 Glucose [Moles/Vol] 111 mmol/L Normal [facility] Comment on above: Order Comment: No: D o not add to previous draw No collection time noted on specimen or requisition. The collection time recorded is the time of receipt in the lab. Performed By: #### 3 1791 #### [facility] [address] [address], [facility] HbA1c (Bld) [Mass fraction] 5.5 % Normal 4.0-6.0 [facility] Comment on above: Order Comment: No: D o not add to previous draw No collection time noted on specimen or requisition. The collection time recorded is the time of receipt in the lab. Performed By: #### 3 1791 #### [facility] [address] [facility]. [address] LIPID PROFILEon 06-29-2022 Cholesterol [Mass/Vol] 223 mg/dL High 120-200 Th e [facility] Comment on above: Result Comment: CHOL ESTEROL REFERENCE RANGE: 20 YEARS AND OLDER CARDIOVASCULAR RISK Less than 200 mg/dl Low Risk 200 to 239 mg/dl Borderline Risk 240 mg/dl and greater High Risk Performed By: #### 3 1791 #### [facility] [address] Cholesterol in HDL [Mass/Vol] 28 mg/dL Normal 23-92 [facility] Comment on above: Result Comment: Slig ht variation in normal range could be due to gender and/or age. HDL CHOLESTEROL REFERENCE RANGE: 20 years and older Cardiovascular Risk > or =60 mg/dL Desirable 40 TO 59 mg/dL Low Risk <40 mg/dL High Risk Performed By: #### 3 1791 #### [facility] [address] [facility] [address], [facility] Cholesterol in LDL [Mass/Vol] 138 mg/dL High 0-130 [facility] Comment on above: Result Comment: LDL IS A CALCULATION LDL IS ONLY VALID IF THE TRIG IS LESS THAN 400. Performed By: #### 3 1791 #### [facility] [address] [facility] [address], [facility] Cholesterol.total/Chol esterol in HDL [Mass ratio] 8.0 {ratio} High .0-4.5 [facility] Comment on above: Performed By: #### 3 1791 #### [facility] [address] [place] [address], [facility] NON-HDL CHOLESTEROL 195 mg/dL Normal [facility] Comment on above: Performed By: #### 3 1791 #### [facility] [address] [place] [address], [facility] Triglyceride [Mass/Vol] 285 mg/dL High 40-149 [facility] Comment on above: Result Comment: TRIG LYCERIDE REFERENCE RANGE: 20 YEARS AND OLDER CARDIOVASCULAR RISK LESS THAN 150 mg/dl LOW RISK 150 TO 199 mg/dl BORDERLINE RISK 200 mg/dl AND GREATER HIGH RISK Performed By: #### 3 1 #### [facility] [address] [facility] [place] [address], [facility] VLDL CHOL 57 mg/dL High 0-40 [facility] Comment on above: Performed By: #### 3 1791 #### [facility] [address] [facility] [place] [address], [facility] POC GLUCOSE LABon 06-29-2022 Glucose [Mass/Vol] 190 mg/dL High 70-100 [facility] Comment on above: Performed By: #### 8 [id number] #### [facility] [address] [facility] [place] [address], [place] Glucose [Mass/Vol] 256 mg/dL High 70-100 [facility] Comment on above: Performed By: #### 8 5499 #### [facility] [address] [facility] [place] [address], [place] Glucose [Mass/Vol] 444 mg/dL High 70-100 [facility] Comment on above: Performed By: #### 1 0070, [id number], [id number] #### [facility] [address] [facility]. [address] Glucose [Mass/Vol] 304 mg/dL High 70-100 [facility] Comment on above: Performed By: #### 1 0070, 01002, 07273 #### [facility] [address] POC SARS COV2 ANTIGEN NEGATI VEon 06-29-2022 POC SARS COV2 ANTIGEN NEG Negative Normal NEGATIVE [facility] Comment on above: Result Comment: Nega tive results should be treated as presumptive and confirmation with a molecular assay, if necessary, for patient management, may be performed. Negative results do not rule out SARS-CoV-2 infection and not should be used as the sole basis for treatment or patient management decisions, including infection control decisions. Negative results should be considered in the context of a patient's recent exposures, history, and the presence of clinical signs and symptoms consistent with COVID-19. The Clarity COVID-19 Antigen Rapid Test Cassette is a rapid chromatographic immunoassay intended for the qualitative detection of the nucleocapsid protein antigen from SARS-CoV-2 in direct nasopharyngeal swab (BASE LOADER) specimens from individuals who are suspected of COVID-19 by their healthcare provider within the first six days of symptom onset. Testing is limited to laboratories certified under the Clinical Laboratory Improvement Amendments of 1988 (CLIA), 42 U.S.C. ???263a, that meet the requirements to perform moderate complexity, high complexity, or waived tests. This test is authorized for use at the Point of Care (POC), i.e., in patient care settings operating under a CLIA Certificate of Waiver, Certificate of Compliance, or Certificate of Accreditation. Performed By: #### 8 5499 #### [facility] [address] [facility]. [place] [id number], [facility] TROPONIN-Ion 06-29-2022 Troponin I.cardiac [Mass/Vol] 1.52 ng/mL Critically high 0.00-0.04 [facility] Comment on above: Order Comment: No: D o not add to previous draw No collection time noted on specimen or requisition. The collection time recorded is the time of receipt in the lab. Result Comment: M-TX EVIOUS CRITICAL RESULT REFERENCE RANGES: 0.00 - 0.04 ng/ml NORMAL 0.05 - 0.50 ng/ml INDETERMINATE > 0.50 ng/ml CONSISTENT WITH AN M.I. Performed By: #### 3 5200 #### [facility] [address] Troponin I.cardiac [Mass/Vol] 1.77 ng/mL Critically high 0.00-0.04 [facility] Comment on above: Order Comment: No: D o not add to previous draw No collection time noted on specimen or requisition. The collection time recorded is the time of receipt in the lab. Result Comment: M-TR OPONIN INITIAL CRITICAL HIGH; RESPUN AND RETESTED M-CRITICAL RESULT(S) REVIEWED, CALLED TO AND READ BACK BY DR MORALES AT 2321 REFERENCE RANGES: 0.00 - 0.04 ng/ml NORMAL 0.05 - 0.50 ng/ml INDETERMINATE > 0.50 ng/ml CONSISTENT WITH AN M.I. Performed By: #### 3 1791 #### [facility] [address] TSH3 WITH REFLEX FT4on 06-29 TSH 3RD GENERATION 1.96 uIU/mL Normal 0.34-5.60 [facility] Comment on above: Performed By: #### 3 1791 #### [facility] [address] [place] [address], [facility] UFH HEPARIN ASSAYon 06-29-20 22 UNFRACTIONATED HEPARIN 0.15 IU/mL Critically low 0.30-0.70 [facility] Comment on above: Result Comment: RESU LTS CHECKED AND CALLED. ACCURATELY READ BACK BY Isabela Shannon RN at 2220 PMW 06-29-22. Rivaroxaban and Apixaban will interfere with the anti Xa assay used to monitor UFH and LMWH. Performed By: #### 3 1791 #### [facility] [address] [place] [address], [facility] UNFRACTIONATED HEPARIN <0.10 Critically low 0.30-0.70 [facility] Comment on above: Result Comment: Resu lt checked and called. Accurately read back by JENNIFER WILLINGHAM RN @1404 06/29/22 Rivaroxaban and Apixaban will interfere with the anti Xa assay used to monitor UFH and LMWH. Performed By: #### 3 5200 #### [facility] [address] UNFRACTIONATED HEPARIN <0.10 Critically low 0.30-0.70 [facility] Comment on above: Result Comment: RESU LTS CHECKED AND CALLED. ACCURATELY READ BACK BY REG KILGORE RN @ 0531 Rivaroxaban and Apixaban will interfere with the anti Xa assay used to monitor UFH and LMWH. Performed By: #### 3 5200 #### [facility] [address] [facility] [address] APTTon 2022 aPTT Coag (Bld) [Time] 32.0 s Normal 25.0-35.0 e [facility] Comment on above: Result Comment: ALL RESULTS MUST BE INTERPRETED WITH RESPECT TO BLOOD DRAWING ARTIFACT OR DILUTION ERROR OF ANTICOAGULANT AT THE TIME OF SAMPLING. THE APTT SHOULD NOT BE USED TO MONITOR UNFRACTIONATED HEPARIN THERAPY, THIS LABORATORY NO LONGER HAS AN ESTABLISHED THERAPEUTIC RANGE BASED ON THE APTT. IT IS RECOMMENDED THAT THE UFH - HEPARIN ASSAY (ANTI-XA ACTIVITY) BE USED FOR THIS PURPOSE. Performed By: #### 3 5200 #### [facility] [address] [facility] [address], [facility] BNPon 2022 Natriuretic peptide B (Bld) [Mass/Vol] 3794.0 pg/mL Critically high <=900.[address] [facility] Comment on above: Performed By: #### C BC #### [facility] [address] [place] [address] Dr. Sruthi Arechiga CARDIAC TONJA ADMITon 022 CK [Catalytic activity/Vol] 51 U/L Normal 26-[address] [facility] Comment on above: Performed By: #### C BC #### [facility] [address] [place] [address] Dr. Sruthi Arechiga CK.MB [Mass/Vol] 2.23 ng/mL Normal <=3.60 [facility] Comment on above: Performed By: #### C BC #### [facility] [address] [place] [address] [address] Sruthi Arechiga HSTROP 705.8 pg/mL Critically high 4.0-51.3 [facility] Comment on above: Result Comment: CUT- OFF POINTS HAVE BEEN ESTABLISHED BASED ON THE FOURTH UNIVERSAL DEFINITIONS OF MYOCARDIAL INFARCTION. THE UPPER REFERENCE LIMIT (URL) OF TROPONIN, DEFINED THE 99TH PERCENTILE OF cTnI DISTRIBUTION IN A REFERENCE POPULATION, HAS BEEN CONFIRMED THE DECISION THRESHOLD FOR SC DIAGNOSIS. Performed By: #### C BC #### [facility] [address] [place] [address] Dr. Sruthi Arechiga DIMITRY 73 ng/mL Normal 9-82 [facility] Comment on above: Performed By: #### C BC #### [facility] [address] [place] [address] Dr. Sruthi Arechiga CBC W MANUAL DIFFon 06-28-20 22 ATYPICAL LYMPH # Normal [facility] Comment on above: Performed By: #### C PITA ####[facility] [address] [place] [address]DrIndu Arechiga ATYPICAL LYMPH % Normal [facility] Comment on above: Performed By: #### C LIMAN ####[facility] [address] [place] [address]DrIndu Arechiga BAND # 0.1 103/ul Normal 0.0-0.3 [facility] Comment on above: Performed By: #### C BCMAN ####[facility] [address] [place] [address]DrIndu Arechiga BAND % 1 % Normal 0-5 [facility] Comment on above: Performed By: #### C BCMAN ####[facility] [address] [place] [address]DrIndu Arechiga BASOM # 0.00 103/ul Normal 0.00-0.10 [facility] Comment on above: Performed By: #### C BCMAN ####[facility] [address] [place] [address]Dr. Sruthi Arechiga BASOM % 0.0 % Critically low 0.2-2.0 [facility] Comment on above: Performed By: #### C BCJOSE ANGEL ####[facility] [address] [place] [address]Dr. Sruthi Arechiga BLAST # Normal [facility] Comment on above: Performed By: #### C BCJOSE ANGEL ####[facility] [address] [place] [address]Dr. Sruthi Arechiga BLAST % Normal [facility] Comment on above: Performed By: #### C PITA ####[facility] [address] [place] [address]Dr. Sruthi Arechiga CORRECTED WBC Normal 4.0-11.0 [facility] Comment on above: Performed By: #### C PITA ####[facility] [address] [place] [address]Dr. Sruthi Arechiga EOS # 0.13 103/ul Normal 0.00-0.[address] [facility] Comment on above: Performed By: #### C PITA ####[facility] [address] [place] [address]Dr. Sruthi Arechiga EOS% 1.0 % Normal 0.9-7.[address] [facility] Comment on above: Performed By: #### C PITA ####[facility] [address] [place] [address]Dr. Sruthi Arechiga HCT 38.8 % Normal 36.0-48.0 [facility] Comment on above: Performed By: #### C PITA ####[facility] [address] [place] [address]Dr. Sruhti Arechiga HGB 12.5 g/dl Normal 12.0-16.0 [facility] Comment on above: Performed By: #### C PITA ####[facility] [address] [place], [place] [address]Dr. Sruthi Arechiga LYMPHM # 1.51 103/ul Normal 1.20-3.80 [facility] Comment on above: Performed By: #### C PTIA ####[facility] [address] [place], [place] [address]Pi. Sruthi Arechiga LYMPHM% 12.0 % Critically low 20.5-60.0 [facility] Comment on above: Performed By: #### C PITA ####[facility] [address] [place], [place] [address]Cr. Sruthi Arechiga MCH 27.2 pg Normal 26.7-34.0 [facility] Comment on above: Performed By: #### C PITA ####[facility] [address] [place] [address]Dr. Sruthi Arechiga MCHC 32.2 g/dl Normal 29.9-35.2 [facility] Comment on above: Performed By: #### C PITA ####[facility] [address] [place] [address]Dr. Sruthi Arechiga MCV 84.3 fL Normal 81.0-99.0 [facility] Comment on above: Performed By: #### C PITA ####[facility] [address] [place] [address]Dr. Sruthi Arechiga METAMYELOCYTE # Normal [facility] Comment on above: Performed By: #### C IPTA ####[facility] [address] [place] [address]Dr. Sruthi Arechiga METAMYELOCYTE % Normal [facility] Comment on above: Performed By: #### C PITA ####[facility] [address] [place] [address]Dr. Sruthi Arechiga MONOM# 1.64 103/ul Critically high 0.30-0.80 [facility] Comment on above: Performed By: #### C PITA ####[facility] [address] [place] [address]Dr. Sruthi Arechiga MONOM% 13.0 % Critically high 1.7-12.0 [facility] Comment on above: Performed By: #### C PITA ####[facility] [address] [place] [address]Dr. Sruthi Arechiga MPV 11.7 fL Normal 9.5-13.5 [facility] Comment on above: Performed By: #### C PITA ####[facility] [address] [place] [address]Dr. Sruthi Arechiga MYELOCYTE # Normal [facility] Comment on above: Performed By: #### C PITA ####[facility] [address] [place] [address]Dr. Sruthi Arechiga MYELOCYTE % Normal [facility] Comment on above: Performed By: #### C PITA ####[facility] [address] [place] [address]Dr. Sruthi Arechiga NRBC Normal [facility] Comment on above: Performed By: #### C PTIA ####[facility] [address] [place] [address]Dr. Sruthi Arechiga PLT 237 103/ul Normal 150-450 [facility] Comment on above: Performed By: #### C PITA ####[facility] [address] [place] [address]Dr. Sruthi Arechiga RBC 4.60 106/ul Normal 4.20-5.40 [facility] Comment on above: Performed By: #### Uvaldo LEMA ####[facility] [address] [place] [address]Dr. Sruthi Arechiga RDW 13.2 % Normal 11.0-15.0 [facility] Comment on above: Performed By: #### C PITA ####[facility] [address] [place] [address]Dr. Sruthi Arechiga SEG # 9.20 103/ul Critically high 1.40-6.50 [facility] Comment on above: Performed By: #### Uvaldo LEMA ####[facility] [address] [place] [address]Dr. Sruthi Arechiga SEG % 73.0 % Normal 43.0-75.0 [facility] Comment on above: Performed By: #### Uvaldo LEMA ####[facility] [address] [place] [address]DrIndu Arechiga WBC 12.6 103/ul Critically high 4.0-11.0 [facility] Comment on above: Performed By: #### C BCMOUNT SIDNEY ####[facility] [address] [place], [place] [address]QtIndu Arechiga [facility]10 SARS-CoV-2 (COVID-19) RNA KOLE+probe Ql (Unsp spec) Not detected Normal NOT DETECTED [facility] Comment on above: Result Comment: When diagnostic testing is negative, the possibility of a false negative should be considered in the context of a patient's recent exposures and the presence of clinical signs and symptoms consistent with SARS-CoV-2. This test is not yet approved or cleared by the [place] FDA. When there are no FDA-approved or cleared tests available, and other criteria are met, FDA can make tests available under an emergency access mechanism called an Emergency Use Authorization (EUA). The EUA for this test is supported by the [employer] Stock Dyeing Machine Tender of Health and Human Service's declaration that circumstances exist to justify the emergency use of in vitro diagnostics for the detection and/or diagnosis of the virus that causes COVID-19. This EUA will remain in effect for the duration of the COVID-19 declaration justifying emergency of IVDs, unless it is terminated or revoked by the FDA (after which the test may no longer be used). Performed By: #### C VDTB ####[facility] [address] [place], [place] [address]QhDr. Sruthi Arechiga LIPASEon 2022 Lipase [Catalytic activity/Vol] 75.0 U/L Normal 73.0-393.[address] [facility] Comment on above: Performed By: #### C BC #### [facility] [address] [place] [address] [address] Sruthi Arechiga POINT OF CARE GLUCOSEon 06-10 Glucose [Mass/Vol] 351 mg/dL Critically high 74-106 [facility] Comment on above: Performed By: #### C VDTB #### [facility] [address] [place] [address] [address] Sruthi Arechiga PROF 14(COMP METB)on 022 Albumin [Mass/Vol] 2.5 g/dL Critically low 3.4-5.0 [facility] Comment on above: Performed By: #### C MP #### [facility] [address] [place] [address] Dr. Sruthi Arechiga Albumin/Globulin [Mass ratio] 0.6 {ratio} Normal [facility] Comment on above: Performed By: #### C MP #### [facility] [address] [place] [address] Dr. Sruthi Arechiga ALP [Catalytic activity/Vol] 132 U/L Critically high 46-[address] [facility] Comment on above: Performed By: #### C MP #### [facility] [address] [place] [address] Dr. Sruthi Arechiga ALT [Catalytic activity/Vol] 32 U/L Normal 14-[address] [facility] Comment on above: Performed By: #### C MP #### [facility] [address] [place] [address] Dr. Sruthi Arechiga Anion gap [Moles/Vol] 19.2 mmol/L Normal [facility] Comment on above: Performed By: #### C MP #### [facility] [address] [place] [address] Dr. Sruthi Arechiga AST [Catalytic activity/Vol] 24 U/L Normal 15-[address] [facility] Comment on above: Performed By: #### C MP #### [facility] [address] [place] [address] Dr. Sruthi Arechiga Bilirubin [Mass/Vol] 0.5 mg/dL Normal 0.2-1.[address] [facility] Comment on above: Performed By: #### C MP #### [facility] [address] [place] [address] Dr. Sruthi Arechiga Calcium [Mass/Vol] 9.5 mg/dL Normal 8.5-10.1 [facility] Comment on above: Performed By: #### C MP #### [facility] [address] [place] [address] Dr. Sruthi Arechiga Chloride [Moles/Vol] 95 mmol/L Critically low 98-[address] [facility] Comment on above: Performed By: #### C MP #### [facility] [address] [place] [address] [address] Sruthi Arechiga CO2 [Moles/Vol] 20.3 mmol/L Critically low 21.0-32.[address] [facility] Comment on above: Performed By: #### C MP #### [facility] [address] [place] [address] [address] Sruthi Arechiga Creatinine [Mass/Vol] 0.78 mg/dL Normal 0.55-1.[address] [facility] Comment on above: Performed By: #### C MP #### [facility] [address] [place] [address] Dr. Sruthi Arechiga EGFR-AF LITHUANIAN >60 Normal >=60 [facility] Comment on above: Performed By: #### C MP #### [facility] [address] [place] [address] Dr. Sruthi Arechiga EGFR-NON AF LITHUANIAN >60 Normal >=[address] [facility] Comment on above: Performed By: #### C MP #### [facility] [address] [place] [address] [address] Sruthi Arechiga Globulin (S) [Mass/Vol] 4.3 g/dL Normal [facility] Comment on above: Performed By: #### C MP #### [facility] [address] [place] [address] Dr. Sruthi Arechiga Glucose [Mass/Vol] 389 mg/dL Critically high 74-106 [facility] Comment on above: Performed By: #### C MP #### [facility] [address] [place] [address] [address] Sruthi Arechiga Potassium [Moles/Vol] 3.5 mmol/L Normal 3.5-5.[address] [facility] Comment on above: Performed By: #### C MP #### [facility] [address] [place] [address] [address] Sruthi Arechiga Protein [Mass/Vol] 6.8 g/dL Normal 6.4-8.2 [facility] Comment on above: Performed By: #### C MP #### [facility] [address] [place] [address] [address] Sruthi Arechiga Sodium [Moles/Vol] 131 mmol/L Critically low 136-145 [facility] Comment on above: Performed By: #### C MP #### [facility] [address] [place] [address] [address] Sruthi Arechiga Urea nitrogen [Mass/Vol] 24.0 mg/dL Critically high 7.0-18.[address] [facility] Comment on above: Performed By: #### C MP #### [facility] [address] [place] [address] [address] Sruthi Arechiga Urea nitrogen/Creatinine [Mass ratio] 30.8 mg/mg Normal [facility] Comment on above: Performed By: #### C MP #### [facility] [address] [place] [address] [address] Sruthi Arechiga PROTHROMBIN TIMEon 2 INR Coag (PPP) [Relative time] 1.01 {INR} Normal 0.91-1.16 [facility] Comment on above: Result Comment: ACCC P RECOMMENDED INR FOR WARFARIN THERAPY --------- ------- CONDITION INR PROPHYLAXIS OF VENOUS THROMBOSIS 2-3 (HIGH-RISK SURGERY) TREATMENT OF VENOUS THROMBOSIS 2-3 TREATMENT OF PULMONARY EMBOLISM 2-3 PREVENTION OF SYSTEMIC EMBOLISM: 2-3 ACUTE MYOCARDIAL INFARCTION TISSUE HEART VALVES VALVULAR HEART DISEASE ATRIAL FIBRILLATION RECURRENT SYSTEMIC EMBOLISM MECHANICAL HEART VALVE 2.5-3.5 FROM: ORAL ANTICOAGULANTS. MECHANISM OF ACTION, CLINICAL EFFECTIVENESS, AND OPTIMAL THERAPEUTIC RANGE. CHEST 1995;108:231S-246S. Performed By: #### 3 [id number] #### [facility] [address] [place] [address], [facility] PT Coag (PPP) [Time] 13.3 s Normal 12.3-14.8 [facility] Comment on above: Result Comment: ALL RESULTS MUST BE INTERPRETED WITH RESPECT TO BLOOD DRAWING ARTIFACT OR DILUTION ERROR OF ANTICOAGULANT AT THE TIME OF SAMPLING. Performed By: #### 3 [id number] #### [facility] [address] [place] [address], [facility] PROTIMEon 2022 INR Coag (PPP) [Relative time] 0.98 {INR} Normal [facility] Comment on above: Performed By: #### C VDTBH #### [facility] [address] [place] [address] Dr. Sruthi Arechiga INR GUIDELINES SEE BELOW Normal [facility] Comment on above: Result Comment: JESSICA RED INR: 2.0 - 3.0 CONDITIONS NOT LISTED BELOW 2.5 - 3.5 FOR PROSTHETIC HEART VALVE REPLACEMENT 2.5 - 3.5 RECURRENT THROMBOSIS Performed By: #### C VDTBH #### [facility] [address] [address] [address] Sruthi Arechiga PT Coag (PPP) [Time] 10.6 s Normal 9.0-11.[address] [facility] Comment on above: Performed By: #### C VDTBH #### [facility] [address] [address] [address] Sruthi Arechiga PTTon 2022 aPTT Coag (Bld) [Time] 32.5 s Normal 22.3-36.2 [facility] Comment on above: Performed By: #### C VDTBH #### [facility] [address] [place] [address] Dr. Sruthi Arechiga TROPONIN, HIGH SENSITIVITYon 2022 HSTROP 4940.1 pg/mL Critically high 4.0-51.3 [facility] Comment on above: Result Comment: CUT- OFF POINTS HAVE BEEN ESTABLISHED BASED ON THE FOURTH UNIVERSAL DEFINITIONS OF MYOCARDIAL INFARCTION. THE UPPER REFERENCE LIMIT (URL) OF TROPONIN, DEFINED THE 99TH PERCENTILE OF cTnI DISTRIBUTION IN A REFERENCE POPULATION, HAS BEEN CONFIRMED THE DECISION THRESHOLD FOR SC DIAGNOSIS. Performed By: #### H STROPN #### [facility] [address] [place], [place] [address] Dr. Sruthi Arechiga HSTROP 1816.7 pg/mL Critically high 4.0-51.3 [facility] Comment on above: Result Comment: CUT- OFF POINTS HAVE BEEN ESTABLISHED BASED ON THE FOURTH UNIVERSAL DEFINITIONS OF MYOCARDIAL INFARCTION. THE UPPER REFERENCE LIMIT (URL) OF TROPONIN, DEFINED THE 99TH PERCENTILE OF cTnI DISTRIBUTION IN A REFERENCE POPULATION, HAS BEEN CONFIRMED THE DECISION THRESHOLD FOR SC DIAGNOSIS. Performed By: #### C BC #### [facility] [address] [place], [place] [address] Dr. Sruthi Arechiga TSHon 2022 TSH 3.865 uIU/mL Critically high 0.358-3.740 [facility] Comment on above: Performed By: #### T SH, LIPA, BNP, CMADM ####[facility] [address] [place], [place] [address]KeDr. Sruthi Arechiga UFH HEPARIN ASSAYon 06-28-20 22 UNFRACTIONATED HEPARIN <0.10 Critically low 0.30-0.70 [facility] Comment on above: Order Comment: No: D o not add to previous draw No collection time noted on specimen or requisition. The collection time recorded is the time of receipt in the lab. Result Comment: Resu lt checked and called. Accurately read back by NEELAM LABOY RN ON 2022 AT 22:19 Rivaroxaban and Apixaban will interfere with the anti Xa assay used to monitor UFH and LMWH. Performed By: #### 3 [id number] #### [facility] [address] [place] [address], [facility] XR CHEST 1 Von 2022 XR CHEST 1 V EXAMINATION: XR CHES T 1 V HISTORY: SHORTNESS OF BREATH COMPARISON: No relevant comparison available. FINDINGS: LUNGS: Mild infiltrates versus atelectasis within right lung base. VASCULATURE: No increased pulmonary vasculature. PLEURA: Small right pleural effusion. CARDIAC: No cardiomegaly or cardiac silhouette abnormality. MEDIASTINUM: No visible mass or adenopathy. BONES: No fracture or visible bone lesion. OTHER: Negative. IMPRESSION: 1. Small-moderate right pleural effusion along with mild right basilar infiltrates versus passive atelectasis. Electronically authenticated by: GERMAIN COY Date: 2022 06:[address] [facility] Vital Signs Date Time Vital Sign Value Performing Clinician Facility 12-11-2023 16:15-0500 Body height 157.5 cm Alexis Gilmore DPM Work Phone: [facility] 12-11-2023 16:15-0500 Body mass index (BMI) [Ratio] 29.26 kg/m2 Alexis Gilmore DPM Work Phone: [facility] 12-11-2023 16:15-0500 Body weight 72.58 kg Alexis Gilmore DPM Work Phone: [facility] 12-11-2023 16:15-0500 Diastolic blood pressure 80 mm[Hg] Alexis Gilmore DPM Work Phone: [facility] 12-11-2023 16:15-0500 Heart rate 77 /min Alexis Gilmore DPM Work Phone: [facility] 12-11-2023 16:15-0500 Systolic blood pressure 130 mm[Hg] Alexis Gilmore DPM Work Phone: [facility] 02-19-2023 10:30-0400 Body height 157.48 cm Sabirna Solanokervin Other [employer] Other 02-19-2023 10:30-0400 Body mass index (BMI) [Ratio] 28.35 kg/m2 Sabrina Solanokervin Other [employer] Other 02-19-2023 10:30-0400 Body temperature 97.8 [degF] Sabrina Suha Other [employer] Other 02-19-2023 10:30-0400 Body weight 70.31 kg Sabrina Borden Other [employer] Other 02-19-2023 10:30-0400 Diastolic blood pressure 64 mm[Hg] Sabrina Borden Other [employer] Other 02-19-2023 10:30-0400 SaO2% (BldA) [Mass fraction] 95 % Sabrina Borden Other [employer] [facility] [employer] Other 02-19-2023 10:30-0400 Systolic blood pressure 112 mm[Hg] Sabrina Borden Other [facility] [employer] Other 01-13-2023 16:30-0500 Diastolic blood pressure 57 mm[Hg] II Nik Bell Work Phone: [facility] 01-13-2023 16:30-0500 Heart rate 63 /min II Nik Bell Work Phone: [facility] 01-13-2023 16:30-0500 Respiratory rate 16 /min II Nik Bell Work Phone: [facility] 01-13-2023 16:30-0500 SaO2% (BldA) [Mass fraction] 95 % II Nik Bell Work Phone: [facility] 01-13-2023 16:30-0500 Systolic blood pressure 123 mm[Hg] II Nik Bell Work Phone: [facility] 01-13-2023 14:00-0500 Inhaled oxygen flow rate 2 L/min II Nik Bell Work Phone: [facility] 01-13-2023 11:42-0500 Body height 157.48 cm II Nik Bell Work Phone: [facility] 01-13-2023 11:42-0500 Body weight 68.49 kg II Nik Bell Work Phone: [facility] 01-09-2023 08:30-0500 Body height 157.48 cm Geo Mathew Other [employer] Other 01-09-2023 08:30-0500 Body mass index (BMI) [Ratio] 28.35 kg/m2 Geo Mathew Other [employer] Other 01-09-2023 08:30-0500 Body temperature 97.8 [degF] Geo Mathew Other [employer] Other 01-09-2023 08:30-0500 Body weight 70.31 kg Geo Mathew Other [employer] Other 01-09-2023 08:30-0500 Diastolic blood pressure 68 mm[Hg] Geo Mathew Other [employer] Other 01-09-2023 08:30-0500 SaO2% (BldA) [Mass fraction] 95 % Geo Mathew Other [employer] Other 01-09-2023 08:30-0500 Systolic blood pressure 112 mm[Hg] Geo Mathew Other [employer] Other 09-20-2021 13:00-0500 Body height 157.48 cm Geo Mathew Other [employer] Other 09-20-2021 13:00-0500 Body mass index (BMI) [Ratio] 31.09 kg/m2 Geo Mathew Other [employer] Other 09-20-2021 13:00-0500 Body weight 77.11 kg Geo Mathew Other [employer] Other 09-20-2021 13:00-0500 Diastolic blood pressure 69 mm[Hg] Geo Wisdomimelda Other [employer] Other 09-20-2021 13:00-0500 Systolic blood pressure 158 mm[Hg] Geo Wisdomimelda Other [employer] Other Encounters Encounter Date Encounter Type Care Provider Facility Start: 01-15-2024 End: 01-15-2024 ambulatory ALEXIS GILMORE Not Available Start: 01-05-2024 End: 01-05-2024 ambulatory ALEXIS GILMORE Not Available Start: 12-19-2023 ambulatory ANABELLE RICH [facility] Start: 12-15-2023 End: 12-15-2023 ambulatory NIK BELL Not Available Start: 12-11-2023 End: 12-11-2023 ambulatory ALEXIS GILMORE Not Available Start: 12-11-2023 End: 12-11-2023 Office outpatient visit 15 minutes Alexis Gilmore DPM Work Phone: [facility] Comment on above: Diabetes mellitus du e to underlying condition with diabetic polyneuropathy, 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) (Primary Dx); PVD (peripheral vascular disease) (CMS/HCC); Dry gangrene (CMS/HCC); Foot ulcer, left, with fat layer exposed ([facility]/HCC) Start: 12-05-2023 Evaluation and management of inpatient [facility] Start: 12-04-2023 Evaluation and management of inpatient [facility] Start: 12-04-2023 Evaluation and management of inpatient [facility] Start: 12-03-2023 Evaluation and management of inpatient [facility] Start: 12-03-2023 End: 12-05-2023 Evaluation and management of inpatient [facility] Start: 11-27-2023 End: 11-27-2023 ambulatory ALEXIS GILMORE Not Available Start: 02-19-2023 End: 02-19-2023 Patient encounter procedure Sabrina Borden [facility] Start: 02-19-2023 End: 02-19-2023 ambulatory MONSE Bell Work Phone: [facility] [employer] Other Start: 01-31-2023 End: 01-31-[address] NIK BELL Facility:[facility] Start: 01-13-2023 End: 01-13-2023 ambulatory Geo Mathew Facility:[facility] Start: 01-13-2023 End: 01-13-2023 Admission to same day surgery center II Nik Bell Work Phone: [facility] Work Phone: Start: 01-13-2023 End: 01-13-2023 ambulatory MONSE Bell Work Phone: [facility] Work Phone: Start: 01-09-2023 End: 01-09-2023 ambulatory Geo Mathew Other [employer] Other Start: 01-09-2023 Office outpatient ne w 60 minutes Geo Mathew [facility] Start: 12-30-2022 End: 12-31-2022 ambulatory ALEXIS GILMORE Facility:[facility] Start: 11-12-[address] DOCTOR CHAN Facility :[facility] Start: 08-17-2022 End: 08-18-[address] PANCHITO CHACON Facility:[facility] Start: 07-21-2022 End: 07-21-[address] NIK BELL Facility:[facility] Start: 07-04-2022 End: 07-07-[address] NIK BELL Facility:[facility] Start: 06-29-2022 End: 07-03-2022 Evaluation and management of inpatient CHASE TAJ Facility:[facility] Start: 2022 End: [address] NIK BELL Facility:[facility] Start: 02-15-[address] NIK BELL Facilit y:[facility] Start: 09-20-2021 End: 09-20-2021 ambulatory Geo Mathew Other [facility] Other Start: 09-20-2021 Office outpatient vi sit 15 minutes Geo Mathew [facility] Procedures Date Procedure Procedure Detail Performing Clinician Start: 06-04-2023 H/O: hysterectomy History of hysterectomy Alexis Gilmore D PM Work Phone: Start: 01-13-2023 Lower limb angiography II Nik Blel Work Phone: Start: 08-23-2020 Mammography Alexis Gilmore DPM Work Phone: Plan of Treatment Date Care Activity Detail Author Start: 03-03-2024 Hemoglobin A1c measurement Diabetes: Hemoglobin A1C [facility] Start: 02-05-2024 End: 02-05-2024 Patient encounter procedure 02/05/2024 10:10 AM EDT Office Visit [facility] [address] [facility] [address] [place] [address] Alexis Gilmore, DPM [address] [facility] [address] [place] [address] [facility] Start: 12-15-2023 End: 12-15-2023 Patient encounter procedure 12/15/2023 2:30 PM EST Office Visit [facility] [address] [facility] [address] [place] [address] Nik Bell MD [address] [facility] [address] [place] [address] [facility] Start: 07-11-2023 Influenza vaccination Influenza Vaccine (#1) [facility] Start: 01-13-2023 [facility] Start: 01-09-2022 Glaucoma screening Diabetes: Retinopathy Screening [facility] Start: 10-06-2021 Pneumococcal Vaccine: 65+ Years (2 - PCV) Pneumococcal Vaccine: 65+ Years (2 - PCV) [facility] Start: 08-23-2021 Screening for malignant neoplasm of breast Mammogram [facility] Start: 01-17-2021 Urine screening for protein Diabetes: Urine Protein Screening [facility] Start: 1955 Medicare Annual Wellness (AWV) Medicare Annual Wellness (AWV) [facility] Patient Education Peripheral Art ansley Disease and Claudication Peripheral Vascular (Arterial) Disease (DC) [facility] Work Phone: Patient referral [facility] Work Phone: Immunizations Immunization Date Immunization Notes Care Provider Fa cili 08-28-2022 Influenza, High-dose Seasonal, Quadrivalent, Preservative Free Alexis Gilmore DPM Work Phone: [facility] 08-28-2022 influenza virus vacc ine, unspecified formulation Alexis Dillon DPM Work Phone: [facility] 09-05-2021 Influenza, Seasonal, Quadrivalent, Adjuvanted Alexis Dillon DPM Work Phone: [facility] 10-06-2020 influenza, injectabl e, quadrivalent, preservative free Alexis Brown DPM Work Phone: [facility] 10-06-2020 pneumococcal polysaccharide vaccine, 23 valent Alexis Brown DPM Work Phone: [facility] 10-05-2020 influenza, high dose seasonal, preservative-free Alexis Brown DPM Work Phone: [facility] 08-10-2019 influenza, high dose seasonal, preservative-free Alexis Brown DPM Work Phone: [facility] 08-25-2018 seasonal influenza, intradermal, preservative free Alexis Brown DPM Work Phone: [facility] 09-24-2017 seasonal influenza, intradermal, preservative free Alexis Brown DPM Work Phone: [facility] 09-25-2016 influenza, injectabl e, quadrivalent, preservative free Alexis Brown DPM Work Phone: [facility] 09-25-2016 pneumococcal polysaccharide vaccine, 23 valent Alexis Brown DPM Work Phone: [facility] 10-02-2015 seasonal influenza, intradermal, preservative free Alexis Gilmore DPM Work Phone: [facility] 10-27-2014 influenza, injectabl e, quadrivalent, preservative free Aleixs Gilmore DPM Work Phone: [facility] Payers Date Payer Category Payer Unknown BCBS BCBS [id number] 2022-Present [phone] [address] [place] [address] [id number] 2015 Medicare MEDICARE MEDICAR E PART B [id number] 2015-Present [address] [address] [place] [address] Medicare [id number] 1959 Medicare [id number] 1959 Self-pay [id number] 1959 Unknown [id number]. [id number] 1959 Unknown [id number] 1954 Unknown [id number] [id number] 1954 Unknown [id number] [id number] 1954 Unknown [id number] 2.16.840.1.187896.3.579.2.593 1954 Unknown [id number] 2.16.840.1.505999.3.579.2.593 1954 Unknown [id number] 2.16.840.1.357087.3.579.2.593 1954 Unknown [id number] 2.16.840.1.447913.3.579.2.593 1954 Unknown [id number] 2.16.840.1.843568.3.579.2.593 1954 Unknown [id number] 2.16.840.1.321401.3.579.2.593 1954 Unknown [id number] 2.16.840.1.405559.3.579.2.593 1954 Unknown [id number] 2.16.840.1.403847.3.579.2.1259 1954 Unknown [id number] 2.16.840.1.049809.3.579.2.1259 1954 Unknown [id number] 2.16.840.1.351973.3.579.2.1259 1954 Unknown [id number] 2.16.840.1.230049.3.579.2.1259 1954 Unknown [id number] 2.16.840.1.781227.3.579.2.1259 Unknown [id number] 2.16.840.1.290106.3.579.2.531 Unknown [id number] Social History Date Type Detail Facility Start: 12-11-2023 Sex Assigned At N [facility] Other Start: 01-13-2023 End: 06-12-2023 Tobacco smoking status [facility] Never smoked tobacco (finding) [facility] Start: 1955 Sex Assigned At Female F [facility] [place] Start: 12-11-2023 Alcohol intake Lifetime non-d maren (finding) [facility] Start: 12-11-2023 History of Social function [facility] Start: 1955 Sex Assigned At Not on file [facility] Goals Date Patient Goal Desired Activity /State Clinical Notes 09-20-2021 to 12-19-2023 Alexis Gilmore DPM - 12/11/2023 4:30 PM EST Note Date & Type Note Facility 12-19-2023 Note Subjective Patient ID: Marimar Patel is a 68 y.o. female who presents for Hospital Follow-up (12/04/23 impatient PAD). 68-year-old female with past medical history significant for CAD status post CABG, history of insulin-dependent diabetes mellitus and peripheral vascular disease, paroxysmal atrial fibrillation on Eliquis, aortic stenosis s/p TAVR who presents today for hospital follow up for CLTI of RLE s/p intervention. Patient has a DFU treated by podiatry and had routine arterial testing which demonstrated near total occlusion of the distal aspect of the SFA on the left side with reconstruction at the distal popliteal with poor runoff and the foot. Patient underwent LLE angiogram with jet stream arthrectomy/thrombectomy, DCBA and stenting of left SFA and popliteal arteries. On 12/04/[address] Vaca. Herpostoperative course was uncomplicated. She was DC on Eliquis, plavix, statin. She presents today for follow up. She has reperfusion edema to the right leg with some mild pain but denies claudication. She is continuing wound care with her fur operator. Denies any significant pain or pulsatility to the right groin Review of Systems Constitutional: Positive for appetite change and fatigue. Negative for activity change, chills, diaphoresis, fever and unexpected weight change. HENT: Positive for voice change. Negative for congestion, dental problem, drooling, ear discharge, ear pain, facial swelling, hearing loss, mouth sores, nosebleeds, postnasal drip, rhinorrhea, sinus pressure, sinus pain, sneezing, sore throat, tinnitus and trouble swallowing. Eyes: Negative for photophobia, pain, discharge, redness, itching and visual disturbance. Respiratory: Positive for shortness of breath. Negative for apnea, cough, choking, chest tightness, wheezing and stridor. Cardiovascular: Positive for leg swelling. Negative for chest pain and palpitations. Right leg swelling Gastrointestinal: Negative for abdominal distention, abdominal pain, anal bleeding, blood in stool, constipation, diarrhea, nausea, rectal pain and vomiting. Endocrine: Negative for cold intolerance, heat intolerance, polydipsia, polyphagia and polyuria. Genitourinary: Negative for decreased urine volume, difficulty urinating, dyspareunia, dysuria, enuresis, flank pain, frequency, genital sores, hematuria, menstrual problem, pelvic pain, urgency, vaginal bleeding, vaginal discharge and vaginal pain. Musculoskeletal: Positive for back pain. Negative for arthralgias, gait problem, joint swelling, myalgias, neck pain and neck stiffness. Skin: Positive for wound. Negative for color change, pallor and rash. Allergic/Immunologic: Negative for environmental allergies, food allergies and immunocompromised state. Neurological: Positive for light-headedness. Negative for dizziness, tremors, seizures, syncope, facial asymmetry, speech difficulty, weakness, numbness and headaches. Hematological: Negative for adenopathy. Does not bruise/bleed easily. Psychiatric/Behavioral: Negative for agitation, behavioral problems, confusion, decreased concentration, dysphoric mood, hallucinations, self-injury, sleep disturbance and suicidal ideas. The patient is not nervous/anxious and is not hyperactive. Objective There were no vitals taken for this visit. Physical Exam Constitutional: General: She is not in acute distress. Appearance: Normal appearance. She is not toxic-appearing. HENT: Head: Normocephalic and atraumatic. Eyes: General: No scleral icterus. Pupils: Pupils are equal, round, and reactive to light. Cardiovascular: Rate and Rhythm: Normal rate. Comments: Groin site well healed. No underlying hematoma or pulsatility Pulmonary: Effort: Pulmonary effort is normal. No respiratory distress. Breath sounds: Normal breath sounds. Musculoskeletal: Cervical back: Neck supple. Right lower leg: Edema present. Skin: General: Skin is warm and dry. Neurological: General: No focal deficit present. Mental Status: She is alert and oriented to person, place, and time. Psychiatric: Mood and Affect: Mood normal. Behavior: Behavior normal. Judgment: Judgment normal. Assessment/Plan Diagnoses and all orders for this visit: PAD (peripheral artery disease) ([facility]) -Patient with reperfusion edema to the right leg. We discussed this will slowly resolve and that it can take a few months. She can use compression stocking for symptomatic relief -Continue Eliquis, plavix, high intensity statin for GDMT -Continue wound care with her podiatry office -Follow up 4-6 weeks for surveillance imagining and follow up No diagnosis found. No orders of the defined types were placed in this encounter. No results found for this or any previous visit (from the past 36 hour(s)). No follow-ups on file. [facility] 12-11-2023 History of Present illness Narrative Patient: Marimar Patel : 1955 PCP: Nik Bell MD SUBJECTIVE This is a 68 y.o. female that presents today for follow-up of dry gangrene type changes and ulceration to her left foot and was previously seen proximally 1 week ago and sent for BRIDGER PVRs at local hospital. Findings were severe to the left leg and patient was transferred to [facility] where she had it angioplasty procedure with increased blood flow noted by patient. She has a type 2 diabetic and presents today for follow up in office. Allergies: Allergies Allergen Reactions Penicillins Hives childhood-swelling Past Medical History: Past Medical History: Diagnosis Date A-fib ([facility] 2022 with RVR Anxiety Aortic stenosis 06/2022 Carotid artery disease ([facility]) CHF (congestive heart failure) ([facility]) 06/2022 Colon polyp 2016 Diverticulitis DM (diabetes mellitus) ([facility]) HLD (hyperlipidemia) ([facility]) HTN (hypertension) ([facility]) SC (myocardial infarction) ([facility]) NSTEMI, initial episode of care ([facility]) 2022 Medications: Current Outpatient Medications: amLODIPine (Norvasc) 10 MG tablet, Take 10 mg by mouth in the morning., Disp: , Rfl: apixaban (Eliquis) 5 MG tablet, Take 1 tablet (5 mg) by mouth in the morning and 1 tablet (5 mg) before bedtime., Disp: 200 tablet, Rfl: 1 aspirin 81 MG chewable tablet, Chew 81 mg in the morning., Disp: , Rfl: atorvastatin (Lipitor) 80 MG tablet, TAKE 1 TABLET BY MOUTH EVERY DAY, Disp: 100 tablet, Rfl: 3 carvedilol (Coreg) 25 MG tablet, Take 25 mg by mouth every 12 (twelve) hours., Disp: , Rfl: citalopram (CeleXA) 20 MG tablet, TAKE 1 TABLET BY MOUTH ONCE DAILY, Disp: 100 tablet, Rfl: 2 citalopram (CeleXA) 40 MG tablet, Take 40 mg by mouth in the morning., Disp: , Rfl: dicyclomine (Bentyl) 20 MG tablet, Take 20 mg by mouth 4 (four) times a day as needed., Disp: , Rfl: ezetimibe (Zetia) 10 MG tablet, Take 10 mg by mouth in the morning., Disp: , Rfl: ferrous sulfate 325 (65 Fe) MG tablet, Take 325 mg by mouth in the morning and 325 mg at noon and 325 mg in the evening. Take with meals., Disp: , Rfl: furosemide (Lasix) 40 MG tablet, Take 40 mg by mouth in the morning., Disp: , Rfl: gabapentin (Neurontin) 300 MG capsule, Take 300 mg by mouth in the morning and 300 mg before bedtime., Disp: , Rfl: insulin glargine (Basaglar KwikPen) 100 UNIT/ML pen, INJECT 86 UNITS UNDER THE SKIN AT AT BEDTIME, Disp: 75 mL, Rfl: 3 insulin glargine (Semglee) 100 UNIT/ML injection, Inject 86 Units under the skin at bedtime., Disp: , Rfl: lisinopril 20 MG tablet, Take 1 tablet (20 mg) by mouth in the morning., Disp: 100 tablet, Rfl: 3 NovoLIN R 100 UNIT/ML injection, Inject 20 mL under the skin in the morning., Disp: , Rfl: oxyCODONE-acetaminophen (Percocet) 5-325 MG tablet, Take 1 tablet by mouth every 8 (eight) hours if needed for severe pain for up to 5 days, Disp: 15 tablet, Rfl: 0 Ozempic, 1 MG/DOSE, 4 MG/3ML solution pen-injector, Inject 1 mg under the skin 1 (one) time per week., Disp: , Rfl: potassium chloride CR (Klor-Con M20) 20 MEQ ER tablet, Take 1 tablet (20 mEq) by mouth in the morning., Disp: 90 tablet, Rfl: 0 spironolactone (Aldactone) 25 MG tablet, Take 25 mg by mouth in the morning., Disp: , Rfl: Social History: Social History Socioeconomic History Marital status: Spouse name: Not on file Number of children: Not on file Years of education: Not on file Highest education level: Not on file Occupational History Not on file Tobacco Use Smoking status: Never Smokeless tobacco: Not on file Vaping Use Vaping Use: Unknown Substance and Sexual Activity Alcohol use: Never Drug use: Defer Sexual activity: Defer Partners: Decline to Answer Other Topics Concern Not on file Social History Narrative Not on file Social Determinants of Health Financial Resource Strain: Not on file Food Insecurity: Not on file Transportation Needs: Not on file Physical Activity: Not on file Stress: Not on file Social Connections: Not on file Intimate Partner Violence: Not on file Housing Stability: Not on file ROS: General: denies fever, chills, fatigue, malaise OBJECTIVE LE EXAM: DERM: Elongated thick yellow crumbly nails digits 1 through 10. Negative hair growth with thin shiny atrophic skin bilaterally Small 0.5 cm x 0.5 cm x 0.2 cm with fibrous slough and slight black necrotic type lesion to sub 3rd metatarsal region of the left foot with negative erythema or drainage and lateral aspect left foot as small black like necrotic lesion as well of 0.5 cm x 0.8 cm with negative drainage and scab like appearance VASC: Negative DP and negative PT pedal pulses with warm to warm tibia to toes left and positive edema to left foot NEURO: 5.07 [place] monofilament test diminished to digits and forefoot bilaterally 125Hz tuning fork diminished to 1st MPJ bilaterally ORTHO: Minimal pain on palpation to left foot ulcer BRIDGER PVR non readable findings to the left with non pulsatile flow and right of 0.53 DP ASSESSMENT 1. Diabetes mellitus due to underlying condition with diabetic polyneuropathy, unspecified whether half-way insulin use ([facility]) 2. PVD (peripheral vascular disease) ([facility]) 3. Dry gangrene ([facility]) 4. Foot ulcer, left, with fat layer exposed ([facility]) PLAN Sharp debridement with 15 blade of subcutaneous ulceration to left foot with active bleeding noted and removal and excision of fibrotic and necrotic tissue to wound and DSD applied with neosporin. Pt to continue with Betadine daily Reviewed BRIDGER PVRs and patient is to follow up with [facility] for right foot in near future and continue with wound care until follow up in 1 week Alexis Gilmore DPM documented in this encounter [facility] 12-05-2023 Note Hospital Medicine Discharge Summary Final Discharge Diagnosis: # critical limb ischemia , right lower extremity # lower extremity claudication, bilateral # nonoliguric EVA # Atrial fibrillation on Eliquis # coronary artery disease status post CABG # uncontrolled diabetes mellitus type 2 # Hyponatremia Admission Diagnosis: Hyponatremia [E87.1] PAD (peripheral artery disease) ([facility]) [I73.9] Numbness of left lower extremity [R20.0] Hospital course: 68-year-old female with past medical history significant for CAD status post CABG, history of insulin-dependent diabetes mellitus and peripheral vascular disease. The patient does have history of paroxysmal atrial fibrillation on Eliquis. patient reports that she had an BRIDGER done with vascular as an outpatient which was showing decreased blood supply and they recommended for her to go to the emergency department. Patient was started on heparin drip and she was seen by vascular surgery. She was found to have near total occlusion of the distal aspect of the SFA on the left side with reconstruction at the distal popliteal with poor runoff and the foot. Patient underwent CADstream with SFA stent in the right lower extremity. no immediate postop complications. Plan of care was discussed with vascular on the day of the discharge. They repeated her duplex postoperatively, they are recommending continuing Eliquis, stopping aspirin and starting Plavix. Patient will follow-up with vascular surgery as an outpatient. Patient is being discharged home in stable condition on December 05, 2023. Dear Dr. Ray MD, [place] is advised to follow up with you within 1-2 weeks. Follow-up with: Vascular Surgery Scheduled appointments: Future Appointments Date Time Provider Department Center 12/19/2023 11:00 AM FAITH [facility] Your medication list START taking these medications Instructions Last Dose Given Next Dose Due clopidogrel 75 mg tablet Commonly known as: Plavix Start taking on: December 06, 2023 Take 1 tablet (75 mg) by mouth in the morning for 98 doses. Do not start before December 06, 2023. oxyCODONE-acetaminophen 5-325 mg tablet Commonly known as: Percocet Take 1 tablet by mouth every 6 (six) hours if needed for severe pain (8-10 pain score) for up to 5 days. CONTINUE taking these medications Instructions Last Dose Given Next Dose Due atorvastatin 80 mg tablet Commonly known as: Lipitor carvedilol 25 mg tablet Commonly known as: Coreg TAKE 1 AND 1/2 TABLETS(37.5 MG) BY MOUTH TWICE DAILY citalopram 20 mg tablet Commonly known as: CeleXA ELIQUIS ORAL ferrous sulfate 325 (65 Fe) MG tablet hydrALAZINE 100 mg tablet Commonly known as: Apresoline Take 1 tablet (100 mg) by mouth in the morning, at noon, and at bedtime. insulin glargine 100 unit/mL injection vial Commonly known as: Lantus insulin regular 100 unit/mL injection vial Commonly known as: HumuLIN R,NovoLIN R potassium chloride CR 10 mEq ER tablet Commonly known as: Klor-Con M10 STOP taking these medications aspirin 81 mg EC tablet Where to Get Your Medications These medications were sent to [id number] - [address] AT [address] [id number] clopidogrel 75 mg tablet oxyCODONE-acetaminophen 5-325 mg tablet Marimar is allergic to penicillin and penicillins. Disposition: Home or Self Care () Discharge Condition: Stable Code Status: Full Code Diagnostic Results Hematology: Results from last 7 days Lab Units 12/05/23 0436 12/04/23 0425 12/03/23 1722 12/03/23 1721 WBC AUTO 10*3/uL 8.35 9.60 < > -- HEMOGLOBIN g/dL 9.7* 10.2* < > -- HEMATOCRIT % 30.0* 30.6* < > -- MCV fL 88.5 87.2 < > -- PLATELETS AUTO 10*3/uL 182 207 < > -- INR -- -- -- 1.24* < > = values in this interval not displayed. Chemistry: Results from last 7 days Lab Units 12/05/23 0436 12/04/23 0425 12/03/23 1721 SODIUM mmol/L 135* 130* 128* POTASSIUM mmol/L 4.1 4.5 5.1 CHLORIDE mmol/L 105 101 93* CO2 mmol/L 27 24 27 BUN mg/dL 29* 42* 55* CREATININE mg/dL 0.97 1.32* 1.68* GLUCOSE mg/dL 192* 268* 274* CALCIUM mg/dL 8.6 9.6 11.5* No lab exists for component: AFIO2 , APHT , APCOT , APOT , ATCO2 , CK , ALB , IBILI Test Results Pending At Discharge: Diet at the time of discharge: regular diet Nutrition Screen Activity: Patient currently has no discharge activity orders Objective Blood pressure (!) 122/41, pulse 67, temperature 36.5 ???C (97.7 ???F), temperature source Oral, resp. rate 17, height 1.575 m (5' 2 ), weight 78.8 kg (173 lb 11.6 oz), SpO2 99 %. Cardiology: Normal rate, regular rhythm. Lungs: Clear to auscultation, no wheezes, rales or rhonchi, symmetric air entry. Abdomen: Soft, non tender, non distended. Total time for discharge - review of data, exam, discussion with providers and care-team, med- (more content not included)... [facility] 12-05-2023 Note [facility] Vascular Surgery DAILY PROGRESS NOTE Subjective No acute events overnight. Status post jet stream with SFA stent. Rest pain improved. Signals in the feet. Objective Vitals Vitals: 12/05/23 0400 BP: (!) 122/41 Pulse: 67 Resp: 17 Temp: 36.5 ???C (97.7 ???F) SpO2: 99% I/O last 3 completed shifts: In: 2558.8 (32.5 mL/kg) [I.V.:1558.8 (19.8 mL/kg); IV Piggyback:1000] Out: 970 (12.3 mL/kg) [Urine:950 (0.3 mL/kg/hr); Blood:20] Weight: 78.8 kg No intake/output data recorded. Physical Exam General Appearance: awake, alert; no acute distress. Pulmonary: unlabored, regular respirations; no respiratory distress. Cardiac: regular rate and rhythm; normotensive. Abdomen: soft, non-distended, non-tender; no guarding. Vascular: Faint monophasic in the feet in the feet bilaterally, no hematoma Skin: warm and dry Labs Results from last 7 days Lab Units 12/05/23 0436 12/04/23 0425 12/03/23 1722 WBC AUTO 10*3/uL 8.35 9.60 10.89* HEMOGLOBIN g/dL 9.7* 10.2* 11.6* HEMATOCRIT % 30.0* 30.6* 34.6* PLATELETS AUTO 10*3/uL 182 207 237 Results from last 7 days Lab Units 12/05/23 0436 12/04/23 0425 12/03/23 1721 SODIUM mmol/L 135* 130* 128* POTASSIUM mmol/L 4.1 4.5 5.1 CO2 mmol/L 27 24 27 BUN mg/dL 29* 42* 55* CREATININE mg/dL 0.97 1.32* 1.68* Results from last 7 days Lab Units 12/03/23 1721 INR 1.24* Medications aspirin, 81 mg, oral, Daily atorvastatin, 80 mg, oral, Daily carvedilol, 25 mg, oral, BID with meals clopidogrel, 75 mg, oral, Daily insulin aspart, 0-20 Units, subcutaneous, Before meals & nightly insulin glargine, 50 Units, subcutaneous, Nightly prochlorperazine, 5 mg, intravenous, Once Imaging Vascular US lower extremity arterial duplex left Narrative: Procedure: The lower extremity arteries were evaluated by ultrasound, Doppler flow, color Doppler, spectral analysis, and velocity measurement. This included evaluation of the peak systolic velocity. The segments evaluated including the common femoral artery, proximal superficial femoral artery, mid-superficial femoral artery, distal superficial femoral artery, popliteal artery, proximally and distally all calf arteries. Impression: Left: Heterogeneous plaque with monophasic Doppler signals and no significant spectral Doppler or color flow disturbances noted in common femoral, deep femoral, superficial femoral, popliteal, posterior tibial, peroneal, anterior tibial, and dorsalis pedis arteries. Assessment/Plan Marimar Patel is a 68 y.o. year old female patient with referred for critical limb ischemia of the left lower extremity. CTA with runoff performed in the emergency department with final read pending. Based on my interpretation the patient appears to have a near-total occlusion at the distal aspect of the SFA on the left side with reconstitution at the distal popliteal with poor runoff in the foot. Patient underwent jet stream with SFA stent in the RLE on 12/04/2023. Repeat arterial duplex today Continue ASA/plavix Vascular will follow [facility] General Surgery PGY4 12/05/2023 Patient with multiple medical problems as above. Admitted to the hospital because of ischemia of the left lower extremity with occlusion of the superficial femoral artery. Angiogram was done with intervention including the jetstream balloon angioplasty of the superficial femoral artery and popliteal artery. Currently the patient has no symptoms with no hematoma with very good flow to the foot. She improved significantly. To continue on aspirin and Plavix. Will evaluate her right lower extremity after intervention. Can be discharged once the ultrasound is done. [facility] 12-05-2023 Note Clinical Nutrition A ssessment: Name: Marimar Patel Room: [address] [place] [address] Date: 1955 Date of Visit: 12/05/23 Admission Dx: Hyponatremia [E87.1] PAD (peripheral artery disease) ([facility]) [I73.9] Numbness of left lower extremity [R20.0] Reason for assessment: high risk Information obtained from: patient, medical record, and nursing Past Medical History: Diagnosis Date A-fib ([facility]) Aortic valve stenosis Coronary artery disease Diabetes mellitus ([facility]) Hypertension Peripheral vascular disease ([facility]) Current Medications: aspirin, 81 mg, oral, Daily atorvastatin, 80 mg, oral, Daily carvedilol, 25 mg, oral, BID with meals clopidogrel, 75 mg, oral, Daily insulin aspart, 0-20 Units, subcutaneous, Before meals & nightly insulin glargine, 50 Units, subcutaneous, Nightly prochlorperazine, 5 mg, intravenous, Once Labs: 0 Lab Value Date/Time POCGLU 172 (H) 12/05/2023 1109 BUN 29 (H) 12/05/2023 0436 CREATININE 0.97 12/05/2023 0436 NA 135 (L) 12/05/2023 0436 K 4.1 12/05/2023 0436 MG 1.9 07/02/2022 0431 HGBA1C 10.4 (H) 12/03/2023 1722 HGB 9.7 (L) 12/05/2023 0436 WBC 8.35 12/05/2023 0436 CHOL 223 (H) 2022 2215 HDL 28 2022 2215 Latest Reference Range & Units 12/03/23 17:21 12/03/23 21:23 12/04/23 04:25 12/04/23 06:49 12/04/23 17:55 12/04/23 21:37 12/05/23 04:36 12/05/23 07:05 12/05/23 11:09 Glucose 70 - 100 mg/dL 274 (H) 268 (H) 192 (H) Glucose POC 70 - 105 mg/dL 337 (H) 284 (H) 176 (H) 173 (H) 194 (H) 172 (H) (H): Data is abnormally high I/O: Intake/Output Summary (Last 24 hours) at 12/05/2023 1131 Last data filed at 12/05/2023 0249 Gross per 24 hour Intake 1558.75 ml Output 970 ml Net 588.75 ml Allergies: Allergies Allergen Reactions Penicillin Hives Penicillins Hives and Unknown childhood-swelling Nutrition Problems: Swallowing Assessment: Pt denies swallowing difficulty Mouth: Missing teeth; pt denies chewing difficulty Abdominal Assessment: Last BM 12/04; pt c/o chronic diarrhea r/t zoloft prescription Appetite: good per pt report Cognition: A/O x 4 Geriatric feeding skills: Pt is able to feed herself and is aware of how to order meals while inpatient; reported that her son helps her prepare meals at home Skin Integrity: black/necrotic wound to L heel, wound to upper R leg, wound to L pretibial Edema: non-pitting RLE Other factors: POD #1 s/p s/p LLE angiogram, thrombectomy, and stent Nutrition Data/Clinical Indicators of Nutrition Status: Height: 157.5 cm (5' 2 ) Weight: 78.8 kg (173 lb 11.6 oz) BMI (Calculated): 31.77 Wt change: Pt denies changes in wt outside of usual couple lbs of wt gain in winter season d/t eating comfort foods and staying inside. Wt Readings from Last 10 Encounters: 12/05/23 78.8 kg (173 lb 11.6 oz) Bed scale 11/08/22 71.7 kg (158 lb) 10/22/22 73 kg (161 lb) 10/22/22 70.3 kg (155 lb) 09/18/22 73.3 kg (161 lb 9.6 oz) IBW: 50 kg (110 lb) UBW: 72.7 kg (160 lb); reported by pt Nutrition Assessment: Visiting pt for initial assessment d/t wounds documented. 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 RD and pt discussed protein at every meal and pt agreeable to trial of ONS with preference for vanilla flavor. RD discussed DM diet ed with patient who verbalized understanding but reported that she does not count carbs or read nutrition labels -> per primary note 12/04/23, adjusted insulin regime with recommendation to endo. Dietary Orders (From admission, onward) Start Ordered 12/05/23 1028 Dietary nutrition supplements TID; Boost Plus; Vanilla; Oral; 8 oz Until discontinued Question Answer Comment Deliver with TID Select supplement: Boost Plus Flavor Vanilla Route Oral Strength: 8 oz 12/05/23 1028 12/04/23 1727 Regular Diet Heart Healthy/HTN, CABG,Stroke, (2gNA, low fat, low cholesterol) Diet effective now Question Answer Comment Room Service? Yes Fat restriction: Heart Healthy/HTN, CABG,Stroke, (2gNA, low fat, low cholesterol) 12/04/23 1726 Meal Intakes: At time of RD assessment, pt had not yet ordered a meal but endorsed feeling hungry Current supplement: Not yet offered Nutrition Risk: Moderate Nutrition Needs: Needs based on: ideal body weight (50 kg) Calorie needs: 3650-9549 kcals/day based on Equation: 25-30 kcal/kg Protein needs: 60-75 g/day based on 1.2-1.5 g/kg Fluid needs: 1500 ml/day based on 30 ml/kg Nutrition Diagnosis: Increased protein needs Related to: wound healing As evidenced by: black/necrotic wound to L heel, wound to upper R leg, wound to L pretibial Malnutrition Assessment: Patient at risk for malnutrition according to hospital criteria, but does not meet the clinical characteristics per the Academy of Nutrition and Dietetics, and the [place] [employer] of Enteral and Parenteral Nutrition to suppo (more content not included)... [facility] 12-05-2023 Note Occupational Therapy Occupational Therapy Evaluation Patient Name: Marimar Patel : 1955 Today's Date: 12/05/2023 Time in: 9:30 Time out: 9:50 Intervention time breakdown: Eval 20 minutes Pt positioned in bed at end of evaluation. Call light within reach of patient and nurse notified. General Subjective: Pt with c/o left LE pain. RN present and attempts at locating pedal pulse. Pt s/p LLE angiogram , thrombectomy and stent 12/04. Pt agreeable to bedside eval, RN advised no OOB at this moment. OT Diagnosis: Decrased mobility and ADL due to LLE pain, PVD. History: Pt is 68yo F with history of A-fib, CAD, DM, HTN, PVD. Pt states she had an outpt BRIDGER/TBIperformed today and they were unable to detect pulses in the left foot. Has some numbness in the foot as well. Denies swelling of the extremity. Has previous left Fem/Pop stent in the lt left, CABG x4. 12/04/2023: Procedures: LEFT LOWER EXTREMITY ANGIOGRAM (Left) AORTOGRAM LEFT LOWER EXTREMITY JETSTREAM AND ATHERECTOMY/THROMBECOMY LEFT LOWER EXTREMITY DRUG COATED BALLOON ANGIOPLASTY OF SFA AND POLITEAL ARTERIES LEFT LOWER EXTREMITY DISTAL SFA AND POPLITEAL COVERED STENTING Patient Active Problem List Diagnosis Nonrheumatic aortic valve stenosis Coronary artery disease involving [place] coronary artery of [place] heart with angina pectoris ([facility]) PAF (paroxysmal atrial fibrillation) ([facility]) Essential hypertension PAD (peripheral artery disease) ([facility]) Numbness of left lower extremity Past Medical History: Diagnosis Date A-fib ([facility]) Aortic valve stenosis Coronary artery disease Diabetes mellitus ([facility]) Hypertension Peripheral vascular disease ([facility]) Past Surgical History: Procedure Laterality Date APPENDECTOMY CARDIAC SURGERY CHOLECYSTECTOMY COLON SURGERY CTA ABDOMEN PELVIS W AND/OR WO IV CONTRAST 07/12/2022 CT ABDOMEN PELVIS ANGIOGRAM W AND/OR WO IV CONTRAST RANDLE CONVERSION CTA CHEST W AND/OR WO IV CONTRAST 06/29/2022 CT CHEST ANGIOGRAM W AND/OR WO IV CONTRAST RANDLE CONVERSION CTA CHEST W AND/OR WO IV CONTRAST 07/12/2022 CT CHEST ANGIOGRAM W AND/OR WO IV CONTRAST RANDLE CONVERSION EYE SURGERY Left HERNIA REPAIR HYSTERECTOMY Precautions Precautions Medical Precautions: fall risk Post-Surgical Precautions: None listed. Pain Pain Assessment Pain Assessment: 0-10 Pain Score: 9 Pain Type: Acute pain Pain Location: Leg Pain Orientation: Left, Distal Clinical Progression: (Pt pending vascular ultrasound this am regarding pulses LLE) Patient's Stated Pain Goal: No pain Cognition Cognition Overall Cognitive Status: Within Functional Limits Arousal/Alertness: Appropriate responses to stimuli Orientation Level: Oriented X4 Following Commands: Follows all commands and directions without difficulty Communication: Intact General Assessment General Assessment Hearing: WFL Skin Integrity: LLE rober wrapped upon arrival, RN removed to check pulses. Edema: None noted Home Living Home Living Type of Home: House Lives With: Spouse Home Adaptive Equipment: Walker rolling, Cane Home Layout: Two level, Able to live on main level with bedroom/bathroom Home Access: Stairs to enter with rails Entrance Stairs-Number of Steps: 2-3 Bathroom Shower/Tub: Tub/shower unit Bathroom Toilet: Standard Bathroom Equipment: Grab bars in shower, Shower chair with back Bathroom Accessibility: Accessable Prior Level of Function Prior Function Level of [place]: Independent with ADLs and functional transfers Prior Functional Mobility: Independent with rolling walker Receives Help From: Family ADL Assistance: Independent Homemaking Assistance: Needs assistance (Son who lives with her cooks and assists with laundry, obtaining groceries.) Static Sitting Balance Static Sitting Balance Static Sitting-Balance Support: Feet unsupported Static Sitting-Level of Assistance: Distant supervision Dynamic Sitting Balance Dynamic Sitting Balance Dynamic Sitting Balance-Level of Assistance: Distant supervision Static Standing Balance Static Standing Balance Static Standing-Level of Assistance: (NT at this time due to reduced pulse LLE, pending vascular duplex this am.) ADL ADL Eating Assistance: Independent Grooming Assistance: Stand by Bathing Assistance: Moderate UE Dressing Assistance: Stand by LE Dressing Assistance: Moderate Bed Mobility Bed Mobility Bed Mobility: (SBA with bed mobility. Pt able to roll and sit up on own. Due to LLE pain and reduced pulse, transfers not attempted. Pt c/o 9/10 LLE pain at present and RN addressing.) Transfers Transfers Transfer: (Will need to assess transfers after LLE duplex regarding LLE pulses. Pt pending test this am.) Objective General Assessments Activity Tolerance Endurance: Stage II Vision - Basic Assessment Current Vision: No visual deficits Sensation Light T (more content not included)... [facility] 12-04-2023 Note Patient: Marimar mccain Procedure Summary Date: 12/04/23 Room / Location: [address] / [facility] Operating Room Anesthesia Start: 1350 Anesthesia Stop: 1625 Procedures: LEFT LOWER EXTREMITY ANGIOGRAM (Left) AORTOGRAM LEFT LOWER EXTREMITY JETSTREAM AND ATHERECTOMY/THROMBECOMY LEFT LOWER EXTREMITY DRUG COATED BALLOON ANGIOPLASTY OF SFA AND POLITEAL ARTERIES LEFT LOWER EXTREMITY DISTAL SFA AND POPLITEAL COVERED STENTING Diagnosis: PAD (peripheral artery disease) (CMS/HCC) (PAD (peripheral artery disease) (CMS/[facility]) [I73.9]) Surgeons: Jennifer Vaca MD Responsible Provider: Charlene Jimenez MD Anesthesia Type: general ASA Status: 3 Anesthesia Type: general Vitals Value Taken Time BP 145/59 12/04/23 1725 Temp 36.7 12/04/23 1730 Pulse 60 12/04/23 1729 Resp 14 12/04/23 1729 SpO2 98 % 12/04/23 1729 Vitals shown include unvalidated device data. Anesthesia Post Evaluation Patient location during evaluation: PACU Patient participation: complete - patient participated Level of consciousness: awake Pain score: 0 Pain management: adequate Airway patency: patent Cardiovascular status: acceptable Respiratory status: acceptable Hydration status: acceptable Patient is hemodynamically stable and is able to be discharged from PACU per anesthesia protocol. No notable events documented. [facility] 12-04-2023 Note Patient: Marimar mccain Procedure Summary Date: 12/04/23 Room / Location: [facility] OR [address] [place] [address] Operating Room Anesthesia Start: 1350 Anesthesia Stop: Procedures: LEFT LOWER EXTREMITY ANGIOGRAM (Left) AORTOGRAM LEFT LOWER EXTREMITY JETSTREAM AND ATHERECTOMY/THROMBECOMY LEFT LOWER EXTREMITY DRUG COATED BALLOON ANGIOPLASTY OF SFA AND POLITEAL ARTERIES LEFT LOWER EXTREMITY DISTAL SFA AND POPLITEAL COVERED STENTING Diagnosis: PAD (peripheral artery disease) (CMS/HCC) (PAD (peripheral artery disease) ([facility] [facility]) [I73.9]) Surgeons: Jennifer Vaca MD Responsible Provider: Charlene Jimenez MD Anesthesia Type: general ASA Status: 3 Anesthesia Post Transport Note Transport to: PACU O2 Route: face mask Oxygen Flow (L/min): 8 Patient Monitor: direct observation Transport: uneventful Patient condition is: stable [facility] 12-04-2023 Note Patient: Marimar mccain Procedure Information Anesthesia Start Date/Time: 12/04/23 1350 Procedure: Lower extremity angiogram (Left) - LLE angiogram possible intervention Location: [facility] OR 14 HYBRID / [facility] Operating Room Surgeons: Jennifer Vaca MD Relevant Problems Cardio (+) Coronary artery disease involving onondaga coronary artery of onondaga heart with angina pectoris ([facility]) (+) Essential hypertension (+) Nonrheumatic aortic valve stenosis (+) PAD (peripheral artery disease) ([facility]) (+) PAF (paroxysmal atrial fibrillation) ([facility]) Clinical information reviewed: Tobacco Allergies Meds Problems Med Hx Surg Hx OB Status Fam Hx Soc Hx Physical Exam Airway Mallampati: II TM distance: >3 FB Neck ROM: full Cardiovascular Rhythm: regular Rate: normal Dental (+) upper dentures Pulmonary (+) decreased breath sounds Abdominal Anesthesia Plan ASA 3 general (A line if need it) intravenous induction Anesthetic plan and risks discussed with patient and spouse. Use of blood products discussed with patient and spouse who. Plan discussed with attending. Additional Equipment Requests [facility] 12-04-2023 Note Airway Date/Time: 12/04/2023 1:58 PM Urgency: elective Airway not difficult General Information and Staff Patient location during procedure: OR Anesthesiologist: Charlene Jimenez MD Resident/EYE DROPPER ASSEMBLER/CAA: Deep Bolton CRNA Performed: resident/EYE DROPPER ASSEMBLER/CAA Indications and Patient Condition Indications for airway management: anesthesia Spontaneous Ventilation: absent Sedation level: deep Preoxygenated: yes Mask difficulty assessment: 1 - vent by mask Final Airway Details Final airway type: endotracheal airway Successful airway: ETT Cuffed: yes Successful intubation technique: direct laryngoscopy Endotracheal tube insertion site: oral Blade: Guillen Blade size: #3 ETT size (mm): 7.5 Cormack-Lehane Classification: grade I - full view of glottis Placement verified by: chest auscultation and capnometry Measured from: lips ETT to lips (cm): 21 Number of attempts at approach: 1 Number of other approaches attempted: 0 Additional Comments 4ml 4% lidocaine lta utilized [facility] 12-04-2023 Note Hospital Medicine Daily Progress Note - 12/04/2023 12:06 PM; Room: [address] [place] [address] Admission: 12/03/2023 4:20 PM; Length of stay: 1 days THE HOSPITALIST TEAM PREFERS TO USE [facility] [facility] FOR COMMUNICATION 7AM-7PM. IF I DO NOT RESPOND WITHIN 15 MINUTES, PLEASE PAGE ME/CALL THROUGH THE CONCRETE MIXER LOADER [employer]. FROM 7PM-7AM, PLEASE PAGE [phone](COVR) Code Status: Full Code Barriers to Discharge: Pending angiogram with vascular Expected Discharge Date: 2 to 3 days Discharge Destination: home Overview Patient is seen for evaluation and management of left lower extremity. Subjective seen and evaluated at the bedside. She reports no new symptoms, she continues to have pain of the left leg. Physical Exam Visit Vitals BP 125/64 Pulse 56 Temp 35.9 ???C (96.7 ???F) (Temporal) Resp 13 Intake/Output Summary (Last 24 hours) at 12/04/2023 1206 Last data filed at 12/03/20232037 Gross per 24 hour Intake 1000 ml Output -- Net 1000 ml Physical Exam Eyes: Pupils: Pupils are equal, round, and reactive to light. Cardiovascular: Rate and Rhythm: Normal rate and regular rhythm. Pulmonary: Effort: Pulmonary effort is normal. Abdominal: General: Bowel sounds are normal. Palpations: Abdomen is soft. Neurological: General: No focal deficit present. Mental Status: She is alert and oriented to person, place, and time. Estimated body mass index is 29.26 kg/m??? as calculated from the following: Height as of this encounter: 1.575 m (5' 2 ). Weight as of this encounter: 72.6 kg (160 lb). Active Inpatient Problems Principal Problem: Numbness of left lower extremity Active Problems: PAD (peripheral artery disease) ([facility]) Assessment and Plan 1. Right lower extremity claudication with concerning for peripheral vascular disease: - abnormal BRIDGER - Extensive cardiovascular disease history including coronary artery disease as well as peripheral vascular disease - Bilateral lower extremity warm to touch without any discoloration, slightly decreased but palpable pulses - on heparin drip as per vascular, pending coronary angiogram today 2. Nonoliguric EVA: - Creatinine is at baseline today. avoid nephrotoxic's and continue monitoring closely. Will start her on gentle IV fluid hydration as she is undergoing angiogram today. 3. Coronary artery disease s/p CABG: - Continue atorvastatin, carvedilol 5. Insulin-dependent type 2 diabetes: - Patient said that she takes 80 units of Basaglar at home along with Novolin R 9 units for every 100 above 100 mg/dL - A1c between 8-9 - Patient was experiencing some low blood glucose at home - Will decrease Lantus to 50 units at night along with low correction insulin - Patient should be evaluated by endocrinology outpatient since her current regimen is quite unusual to use Lantus along with regular insulin CODE STATUS: Full VTE Prophylaxis: IV heparin Scheduled Meds aspirin, 81 mg, oral, Daily atorvastatin, 80 mg, oral, Daily carvedilol, 25 mg, oral, BID with meals insulin aspart, 0-20 Units, subcutaneous, Before meals & nightly insulin glargine, 50 Units, subcutaneous, Nightly heparin, 0-28 Units/kg/hr, Last Rate: 17 Units/kg/hr (12/04/23 0539) lactated Ringer's, 75 mL/hr, Last Rate: 75 mL/hr (12/04/23 0742) Pertinent Investigations Hematology: Results from last 7 days Lab Units 12/04/23 0425 12/03/23 1722 12/03/23 1721 WBC AUTO 10*3/uL 9.60 10.89* -- HEMOGLOBIN g/dL 10.2* 11.6* -- HEMATOCRIT % 30.6* 34.6* -- MCV fL 87.2 84.4 -- PLATELETS AUTO 10*3/uL 207 237 -- INR -- -- 1.24* Chemistry: Results from last 7 days Lab Units 12/04/23 0425 12/03/23 1721 SODIUM mmol/L 130* 128* POTASSIUM mmol/L 4.5 5.1 CHLORIDE mmol/L 101 93* CO2 mmol/L 24 27 BUN mg/dL 42* 55* CREATININE mg/dL 1.32* 1.68* GLUCOSE mg/dL 268* 274* CALCIUM mg/dL 9.6 11.5* No lab exists for component: AFIO2 , APHT , APCOT , APOT , ATCO2 , CK , ALB , IBILI Results from last 7 days Lab Units 12/04/23 0649 12/03/23 2123 POCT GLUCOSE mg/dL 284* 337* Historical Values: (Includes values prior to this admission) Lab Results Component Value Date TSH 1.96 2022 HDL 28 2022 LDL 138 (H) 2022 LDL 195 2022 No results found for: PNDDLVUR15 , IRON , TIBC , C3 , C4 , TARIQ , CANCA , ASO , PSA , CEA , CA125 , CA199 , AFP , CA153 Imaging ECG 12 lead Sinus bradycardia Otherwise normal ECG When compared with ECG of 17-SEP-2022 22:49, Nonspecific T wave abnormality no longer evident in Inferior lead T wave inversion no longer evident in Lateral Confirmed by Sandeep PANTOJA, L.S. (2) on 12/04/2023 10:26:30 AM Discharge Planning Discharge Planning Support Systems: Spouse/significant other, Children, Family members, Friends/neighbors Type of Residence/Post Acute Needs: Private residence Will patient need Precert for Post Acute needs?: No Patient's goal for discharge: Home Does the pa (more content not included)... [facility] 12-03-2023 Note Pharmacy completed a medication reconciliation for Marimar Patel. Patient is a 68 y.o. year old female, 1.575 m (5' 2 ) cm, 72.6 kg (160 lb) kg, CrCl= Estimated Creatinine Clearance: 29.5 mL/min (A) (by C-G formula based on SCr of 1.68 mg/dL (H)). mL/minute. Patient has allergies to: Penicillin and Penicillins . Pt fills at [facility] [phone]. Medication list was obtained from patient's fill history list and patient (pt stated that her knows the medication better but he is not in the room). Home medication list has been updated. Please call pharmacy with any questions. Thank you! Confirmed that patient was doing basaglar 80 units at night (Rx said 86 units) Thanks, [facility] Fiona Nash, PharmD, 12/03/23 [facility] 12-03-2023 Note 12/03/232003 Financial Resource Strain How hard is it for you to pay for the very basics like food, housing, medical care, and heating? Not hard Housing Stability In the last 12 months, was there a time when you were not able to pay the mortgage or rent on time? N In the last 12 months, how many places have you lived? 1 (Lives at home with and son) In the last 12 months, was there a time when you did not have a steady place to sleep or slept in a snf (including now)? N Transportation Needs In the past 12 months, has lack of transportation kept you from medical appointments or from getting medications? no In the past 12 months, has lack of transportation kept you from meetings, work, or from getting things needed for daily living? No Food Insecurity Within the past 12 months, you worried that your food would run out before you got the money to buy more. Never true Within the past 12 months, the food you bought just didn't last and you didn't have money to get more. Never true Stress Do you feel stress - tense, restless, nervous, or anxious, or unable to sleep at night because your mind is troubled all the time - these days? To some exte Social Connections In a typical week, how many times do you talk on the phone with family, friends, or neighbors? More than 3 How often do you get together with friends or relatives? More than 3 How often do you attend hinduism or methodist services? Never Do you belong to any clubs or organizations such as hinduism groups, unions, fraternal or athletic groups, or school groups? No How often do you attend meetings of the clubs or organizations you belong to? Never Are you , , , , never , or living with a partner? Intimate Partner Violence Within the last year, have you been afraid of your partner or ex-partner? No Within the last year, have you been humiliated or emotionally abused in other ways by your partner or ex-partner? No Within the last year, have you been kicked, hit, slapped, or otherwise physically hurt by your partner or ex-partner? No Within the last year, have you been raped or forced to have any kind of sexual activity by your partner or ex-partner? No Alcohol Use Q1: How often do you have a drink containing alcohol? Never Q2: How many drinks containing alcohol do you have on a typical day when you are drinking? None Q3: How often do you have six or more drinks on one occasion? Never Utilities In the past 12 months has the electric, gas, oil, or water company threatened to shut off services in your home? 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 worker Referral Reason Psychosocial assessment Patient Information Primary Caregiver Self Accompanied by/Relationship Activities of Daily Living Assistive Device Cane;Walker (Uses sometimes) Living Arrangement (Current/Prior to Hospitalization) Private residence (Lives at home with and son) Ambulation Minimum assistance (Uses walker or cane sometimes) Dressing Independent Feeding Independent Behavior Oriented Communication Can write;Talks;Understands speaking;Understands Georgian;Reads Income Information Income Source Unemployed Discharge Planning Support Systems Spouse/significant other;Children;Family members;Friends/neighbors Type of Residence/Post Acute Needs Private residence Will patient need Precert for Post Acute needs? No Patient's goal for discharge Home Does the patient need discharge transport arranged? No ( will provide) Completed social work assessment and SDoH screening. Patient was awake, alert and oriented at this time. Patient's was currently present at bedside. Patient reported that she lives at home with her and her son. Patient identified her support system as her friends, her , her [id number], and her son. Patient endorsed that she is moderately socially active. Patient reported that she is independent with ADL with the occasional use of a walker and a cane. Patient reported that she is unemployed and she denied the need for assistance with obtaining basic needs. Patient also denied the need for assistance with transportation for medical appointments. Patient said that her will provide transportation for her to return home from the hospital upon discharge. Patient endorsed experiencing a moderate level of stress in her everyday life. Patient denied having a current mental health provider and declined interest in getting connected with one. Patient denied experiencing any form of IPV within the past year and denied any alcohol consumption. [facility] 02-19-2023 Evaluation note Encounter Date Diagnosis Assessment Notes Feb, PAD (periphera l artery disease) (ICD-10 - I73.9) We reviewed today's noninvasive arterial testing which are normal. She has gotten great results after endovascular intervention 3 weeks ago. She will continue to follow with podiatry for care of the foot wounds which were not evaluated at the request today. We will see her again in 3 months for repeat arterial studies. She should continue with her aspirin and statin therapy going forward. She knows to call or return to the office sooner with any issues or concerns. [employer] Other 03-24-2023 NotePROCEDURE: XR WRIST LT MIN 3 V HISTORY: Pain after falling COMPARISON: None. FINDINGS: BONES:No fracture, acute abnormality, or significant arthropathy. SOFT TISSUES:Multiple skin jose within soft tissues lateral to the distal forearm. EFFUSION:None visible. OTHER: Negative. IMPRESSION: 1. No acute bone abnormality. 2. Multifocal mild degenerative joint disease. Electronically authenticated by: GERMAIN COY Date: 2023-01-31 13:10[id number] Evaluation [facility]* Encounter Date Diagnosis Assessment Notes Treatment Notes Treatment Clinical Notes Jan, PAD (peripheral artery disease) (ICD-10 - I73.9) Jan, Diabetes mellitus due to underlying condition with foot ulcer (ICD-10 - E08.621) Jan, Non-pressure chronic ulcer of other part of left foot limited to breakdown of skin (ICD-10 - L97.521) This patient is at risk for limb loss. She is a diabetic foot ulcer with severe vascular disease. I recommending a diagnostic. Possibly therapeutic angiography. This patient likely has multilevel disease including the femoral SFA and tibial location. She may have iliac disease in the right side based on her clinical exam. I do not have the [place] studies yet. We will reach out to get these. Nevertheless this patient needs intervention for limb salvage. I explained the risks and benefits as well as medical surgical alternatives. We also discussed possible complications and their management. I gave her a PAD handout today we reviewed each page individually together. She understands and wishes to proceed consent was obtained all her questions were addressed. [employer] Other 08-25-2022 NoteMR#: [id number] I [facility] Pt. Name: Marimar Patel Admitted: 2022 Discharged: 07/03/2022 Date of : 1955 Physician: Chase Amaya MD DISCHARGE SUMMARY PRIMARY DIAGNOSES: 1. NSTEMI with history of CABG with severe aortic valve stenosis. 2. Uncontrolled hypertension, improved on increased dose of Coreg, amlodipine, and spironolactone. 3. Type 2 diabetes mellitus. 4. Status post CABG. CONSULTATION: Cardiology. HOSPITAL COURSE: 1. For NSTEMI, the patient was started on anticoagulation with IV heparin infusion. Cardiology Team consulted. Echocardiogram shows severe aortic stenosis. The patient underwent heart cath that showed 3/4 bypass graft was patent. The OSORIO to LAD was patent, radial to D1 was patent, SVG to OM2 is patent, SVG to RCA was occluded and the patient was found to have a new diagnosis of severe aortic valve stenosis and the patient's recommendation was to be evaluated for TAVR. Plan was to follow up with Cardiothoracic Surgery and Cardiology outpatient for TAVR and regarding the CAD and atrial fibrillation, Cardiology Team recommend to start the patient on Eliquis 5 mg twice a day and the patient was subsequently discharged home. 2. For essential hypertension, uncontrolled, Cardiology Team managed with the change in medication. The patient's metoprolol was stopped, and started on Coreg 25 mg twice a day and amlodipine 10 mg daily and spironolactone. Lisinopril was held due to the severe aortic valve stenosis. PHYSICAL EXAMINATION: VITAL SIGNS: At the time of discharge, the patient's vitals were stable. GENERAL: The patient is alert, oriented x4. No visible distress noted. HEAD AND NECK: Atraumatic, normocephalic. EYES: EOMI, PERRLA. CHEST: No sign of labored breathing. MUSCULOSKELETAL: Intact. NEUROLOGIC: Nonfocal. PSYCH: Mood stable. DISCHARGE MEDICATIONS: As per reconcile in the computer. DISCHARGE DISPOSITION: The patient is going home in stable condition. TOTAL TIME: 45 minutes evaluating the patient, reviewing chart, coordinating care with nursing staff. Electronically Signed by: Chase Amaya MD 07/11/2022 01:13 P Chase Amaya MD Date Dict: 07/03/2022/01:34 P/Chase Amaya MD Date Trans: 07/03/2022 11:43 P/abdiaziz [id number] cc: Nik Bell M.D. [address] [place] [id number] Evaluation note* Encounter Date Diagnosis Assessment Notes Treatment Notes Treatment Clinical Notes Sep, PAD (peripheral artery disease) (ICD-10 - I73.9) Clearly this patient has PAD based on her noninvasive arterial studies and her clinical exam. However she does not appear to be very symptomatic from it. She is not describing severe claudication nor does she have any tissue loss or rest pain at this time. She should be treated medically at this time with an exercise regimen high intensity statin and aspirin pharmacotherapy. There is no indication for intervention at this time. We will see her back in 6 months for a checkup. She understands agrees the plan all of her questions were addressed. [employer] Other Evaluation noteNo assessment information available [facility] Work Phone: Evaluation note* Diagnosis Diabetes mellitus due to underlying condition with diabetic polyneuropathy, unspecified whether half-way insulin use (CMS/HCC)- Primary PVD (peripheral vascular disease) (CMS/HCC) Unspecified peripheral vascular disease Dry gangrene (CMS/HCC) Foot ulcer, left, with fat layer exposed ([facility]/HCC) documented in this encounter [facility] general Narrative - Reported* Type Description Date Medical History carotid stenosis Medical History diverticulitis Medical History SC Medical History DM Medical History hyperlipidemia Medical History HTN Surgical History cholecystectomy Surgical History tonsillectomy Surgical History CABGx2 Surgical History hernia repair Surgical History appendectomy Surgical History quad bypass 2012 Hospitalization History see surgical hx [employer] Other History general Narrative - Reported* Type Description Date Medical History carotid stenosis Medical History diverticulitis Medical History SC Medical History DM Medical History hyperlipidemia Medical History HTN Surgical History cholecystectomy Surgical History tonsillectomy Surgical History CABGx2 Surgical History hernia repair Surgical History appendectomy Surgical History quad bypass 2012 Surgical History Cardiac Stent 2022 Hospitalization History see surgical hx [employer] Other Summary Purpose Family History No Family History Records Found Relationship Condition Age at Onset Recorded Date/T ivana Not Specified No pertinent family history Unknown Advance Directives No Advanced Directives Records Found Advance Directive Response Recorded Date/ Time Advance Directives No January 09 9:00am Advance Directive Response Recorded Date/ Time Advance Directives No January 09 10:00am Chief Complaint and Reason for Visit Chief Complaint Diabetic Foot Ulcer, PAD Left Leg Chief Complaint Diabetic Foot Ulcer, PAD Left Leg i70.212 Additional Source Comments REASON FOR VISIT (unrecogniz ed section and content) Reason Comments Consult [facility]VR F/U INFORMATION SOURCE (unrecogn ized section and content) DATE CREATED AUTHOR 07/13/2022 [facility] DATE CREATED AUTHOR AUTHOR'S ORGANIZ ATION 02/04/2023 [facility] DATE CREATED AUTHOR AUTHOR'S ORGANIZ ATION 03/01/2023 [facility] DATE CREATED AUTHOR AUTHOR'S ORGANIZ ATION 01/08/2024 [facility] DATE CREATED AUTHOR AUTHOR'S ORGANIZ ATION 01/16/2024 [facility] Care Teams (unrecognized sec tion and content) Team Status: Active Member Role Status Dates Nik Bell II MD Primary Care Provider Active Team Status: Inactive Member Role Status Dates Nik Bell II MD Primary Care Provider Active Geo Mathew MD Attending Provider Active Deputy Court Relationship Specialty Start Date End Date Nik Bell MD [address] [facility] [address] [place] [address] PCP - General Internal Medicine 03/18/23 FOR RECORDS PERTAINING TO PATIENTS WHO ARE OR HAVE BEEN ENROLLED IN A CHEMICAL DEPENDENCY/SUBSTANCEABUSE PROGRAM, SOME INFORMATION MAY BE OMITTED. This clinical summary was aggregated from multiple sources. Caution should be exercised in using it in the provision of clinical care. This summary normalizes information from multiple sources, and as a consequence, information in this document may materially change the coding, format and clinical context of patient data. In addition, data may be omitted in some cases. CLINICAL DECISIONS SHOULD BE BASED ON THE PRIMARY CLINICAL RECORDS. [employer] provides no warranty or guarantee of the accuracy or completeness of information in this document.
--- NOTE | 2024-02-08 12:24 | ECG_ITS ---
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
[2024-02-08 12:39] LABS: Hemoglobin 9.9 g/dL (12.0-16.0); Mean Corpuscular HGB Conc 31.9 g/dL (29.9-35.2); Mean Corpuscular Hemoglobin 27.8 pg (26.7-34.0); Mean Corpuscular Volume 87.1 fL (81.0-99.0); Mean Platelet Volume 11.5 fL (9.5-13.5); Platelet Count 282 10^3/uL (150-450); Red Blood Count 3.56 10^6/uL (4.20-5.40); Red Cell Distribution Width 13.6 % (11.0-15.0); White Blood Count 13.2 10^3/uL (4.0-11.0)
[2024-02-08] MEDS: 0.9 % SODIUM CHLORIDE 1,000 ML 1000 ML IV ×3 (12:52→17:46)
[2024-02-08 12:53] LABS: Lactate/Lactic Acid 1.9 mmol/L (0.4-2.0)
[2024-02-08 12:56] LABS: Alanine Aminotransferase 81 U/L (14-59); Albumin Globulin Ratio 0.6; Albumin Level 2.5 g/dL (3.4-5.0); Alkaline Phosphatase 89 U/L (46-116); Anion Gap 15.6; Aspartate Amino Transferase 29 U/L (15-37); BUN Creatinine Ratio 35.4; Bilirubin Total 0.3 mg/dL (0.2-1.0); Calcium 8.9 mg/dL (8.5-10.1); Carbon Dioxide 22.1 mmol/L (21.0-32.0); Chloride 96 mmol/L (98-107); Estimated GFR (African America 26 (>=60); Estimated GFR (Non-African Ame 21 (>=60); Globulin 4.4 g/dL; Glucose 73 mg/dL (74-106); Magnesium 2.8 mg/dL (1.8-2.4); Potassium 3.7 mmol/L (3.5-5.1); Sodium 130 mmol/L (136-145); Total Protein 6.9 g/dL (6.4-8.2)
[2024-02-08 13:09] LABS: Band Neutrophils Absolute 0.3 10^3/uL (0.0-0.3); Eosinophils Absolute Manual 0.66 10^3/uL (0.00-0.70); Lymphocytes Absolute Manual 2.11 10^3/uL (1.20-3.80); Monocytes Absolute Manual 1.32 10^3/uL (0.30-0.80); Segmented Neut Absolute Manual 8.84 10^3/uL (1.4-6.5)
[2024-02-08 13:35] LABS: Glucometer 78 mg/dL (74-106)
[2024-02-08] MEDS: DEXTROSE 10 % IN WATER 1,000 ML 100 ML IV (13:59)
[2024-02-08] MEDS: DEXTROSE 50 %-WATER 25 GM/50 ML SYRINGE IV (13:59)
[2024-02-08 14:37] LABS: Glucometer 279 mg/dL (74-106)
--- NOTE | 2024-02-08 14:40 | P.HP_ITS ---
HPI H&P: HPI History of Present Illness Chief complaint: DIZZINESS Narrative: Patient presented to the emergency room with increasing weakness. Over the last 5 or 6 days she has had increasing nausea vomiting. Unable to keep anything significant down. Her sugars have been running low as well into the 70s, blood pressure significantly low on evaluation by EMS, IV fluids were instituted in the field. I saw patient in the emergency room. Still with significant weakness. No dyspn ea, no chest pain, no abdominal pain just the nausea and vomiting currently. Rest of workup is still pending. Opioid HPI Opioid Management Most Recent Opioid Data: No Data to Display Meds Home Medications and Allergies Home Medications ?Medication ?Instructions ?Recorded ?Confirmed ?Type apixaban 5 mg tablet (Eliquis) 5 mg PO BID 02/08/24 02/08/24 History atorvastatin 80 mg tablet 80 mg PO DAILY 02/08/24 02/08/24 History carvedilol 25 mg tablet 25 mg PO BID 02/08/24 02/08/24 History citalopram 20 mg tablet 20 mg PO DAILY 02/08/24 02/08/24 History clopidogrel 75 mg tablet 75 mg PO DAILY 02/08/24 02/08/24 History insulin glargine 100 unit/mL (3 86 unit subcut QPM 02/08/24 02/08/24 History mL) subcutaneous pen (Basaglar KwikPen U-100 Insulin) insulin regular human 100 unit/mL 02/08/24 History injection solution (Novolin R Regular U-100 Insulin) lisinopril 20 mg tablet 20 mg PO DAILY 02/08/24 02/08/24 History Allergies Allergy/AdvReac Type Severity Reaction Status Date / Time Penicillins Allergy Severe Verified 02/08/24 12:18 Exam Constitutional Vital Signs, click to edit/add: Last Vital Signs Temp 97.7 F 02/08/24 12:19 Pulse 52 L 02/08/24 13:40 Resp 16 02/08/24 12:14 BP 102/50 02/08/24 13:30 Pulse Ox 99 02/08/24 13:40 O2 Del Method Room Air 02/08/24 12:22 Documenting provider has reviewed patient's vital signs: yes Common normals: no apparent distress Chest Common normals: inspection of chest normal Respiratory Common normals: normal respiratory effort, no retractions and clear to auscultation bilaterally GI Common normals: Normal to inspection, nondistended, normoactive bowel sounds present and soft to palpation; tender Palpation: tender (Epigastric and left upper quadrant) Extremity Common normals: normal to inspection, full ROM, normal capillary refill and no clubbing, cyanosis or edema Results Labs Labs: Short CBC 02/08/24 Range/Units 12:20 WBC 13.2 H (4.0-11.0) 10^3/uL Hgb 9.9 L (12.0-16.0) g/dL Hct 31.0 L (36.0-48.0) % Plt Count 282 (150-450) 10^3/uL BMP 02/08/24 12:20 Sodium 130 L Potassium 3.7 Chloride 96 L Carbon Dioxide 22.1 BUN 80.0 H* Creatinine 2.26 H Glucose 73 L Calcium 8.9 Liver Function 02/08/24 Range/Units 12:20 Total Bilirubin 0.3 (0.2-1.0) mg/dL AST 29 (15-37) U/L ALT 81 H (14-59) U/L Alkaline Phosphatase 89 (46-116) U/L Albumin 2.5 L (3.4-5.0) g/dL Assessment and Plan Assessment and Plan (1) Hypotension: Plan Bradycardia, severe hypotension with blood pressure 68/30 documented in the emergency room after some fluid resuscitation and already begun, that is overall improving, also with leukocytosis, acute renal failure(previous creatinine was 0.98, current creatinine is 2.26 for an approximate acute renal failure of 226% of her baseline), hypomagnesemia, elevated liver function tests-this is possibly secondary to acute UTI. UA is pending. Could be just dehydration with gastroenteritis. Will check amylase and lipase also because she had left upper quadrant abdominal tenderness History of coronary artery disease-no chest pain-if lactate is positive would be unable to give extensive rapid fluid resuscitation due to history of coronary artery disease. Hypomagnesemia-follow daily Elevated liver function test-possibly related to the acute gastroenteritis, again checking amylase and lipase Moderate protein calorie malnutrition-diet supplement Insulin-dependent diabetes mellitus now with hypoglycemia, will hold long-acting and use just sliding scale insulin Depression-continue with home medications Admission criteria: With all of the above potentially just related to dehydration, will start fluid resuscitation, check other labs, will start patient off as observation status depending how labs come back may need to be changed to inpatient status with medically necessary treatment possibly spanning 2 midnights.
--- NOTE | 2024-02-08 14:58 | ED_ITS ---
HPI - Weakness General Chief complaint: Weakness Stated complaint: DIZZINESS Time Seen by Provider: 02/08/24 12:23 Source: patient Mode of arrival: ambulance History of Present Illness HPI Narrative: Patient comes to us with generalized weakness for the last few days it was preceded by last week having nausea vomiting and diarrhea, the patient mentioned that she also has been having generalized weakness for the last few days although her diarrhea and vomiting resolved but she have no appetite, the patient was evaluated by EMS upon arrival they found that her blood pressure was low. The patient was started on IV fluids, No chest pain no abdominal pain no other complaint no fever or chills Related Data Home Medications ?Medication ?Instructions ?Recorded ?Confirmed apixaban 5 mg tablet (Eliquis) 5 mg PO BID 02/08/24 02/08/24 atorvastatin 80 mg tablet 80 mg PO DAILY 02/08/24 02/08/24 carvedilol 25 mg tablet 25 mg PO BID 02/08/24 02/08/24 citalopram 20 mg tablet 20 mg PO DAILY 02/08/24 02/08/24 clopidogrel 75 mg tablet 75 mg PO DAILY 02/08/24 02/08/24 insulin glargine 100 unit/mL (3 86 unit subcut QPM 02/08/24 02/08/24 mL) subcutaneous pen (Basaglar KwikPen U-100 Insulin) insulin regular human 100 unit/mL 02/08/24 injection solution (Novolin R Regular U-100 Insulin) lisinopril 20 mg tablet 20 mg PO DAILY 02/08/24 02/08/24 Allergies Allergy/AdvReac Type Severity Reaction Status Date / Time Penicillins Allergy Severe Verified 02/08/24 12:18 Review of Systems ROS Status of ROS 10 or more systems reviewed and unremark able except as noted in history and below Exam Narrative Exam Narrative: Nurses notes and vital signs reviewed and patient is not hypoxic. General: Well-appearing and in no apparent distress. Skin: Warm, dry, no pallor noted. No rash. Head: Normocephalic, atraumatic. Neck: Supple, non-tender. Eye: Pupils are equal, round and EOMI. No scleral icterus. Ears, Nose, Mouth, and Throat: TM are clear, no nasal mucosal hypertrophy. Oral mucosa is moist, no posterior oropharynx erythema, uvula is mid-line Cardiovascular: Regular Rate and Rhythm without murmur, gallop or rub. Respiratory: No accessory muscle use or respiratory distress. Lungs are clear to auscultation, no wheezing, rales or rhonchi Chest Wall: no tenderness Back: No midline thoracic or lumbar vertebral tenderness. No CVA tenderness Musculoskeletal: normal ROM, no calf or popliteal tenderness, no lower extremity edema/swelling GI: Abdomen is soft, non-distended. Normal bowel sounds. No masses appreciated. No tenderness to palpation. No rebound, guarding, or rigidity noted. Neurological: A&O x4. No cranial nerve dysfunction observed. No truncal ataxia. Moves all extremities. Sensation intact. Psychiatric: Cooperative and interactive. Normal mood and affect. Constitutional Vital Signs, click to edit/add: Last Vital Signs Temp 97.7 F 02/08/24 12:19 Pulse 54 L 02/08/24 14:50 Resp 16 02/08/24 12:14 BP 84/43 L 02/08/24 14:45 Pulse Ox 97 02/08/24 14:50 O2 Del Method Room Air 02/08/24 12:22 Course Vital Signs Vital signs: Vital Signs Pulse Rate 53 L 02/08/24 12:14 Respiratory Rate 16 02/08/24 12:14 Blood Pressure 68/30 L 02/08/24 12:14 Pulse Oximetry 98 02/08/24 12:14 Oxygen Delivery Method Room Air 02/08/24 12:14 Temperature 97.7 F 02/08/24 12:19 Pulse Rate 54 L 02/08/24 14:50 Respiratory Rate 16 02/08/24 12:14 Blood Pressure 84/43 L 02/08/24 14:45 Pulse Oximetry 97 02/08/24 14:50 Oxygen Delivery Method Room Air 02/08/24 12:22 MDM - Weakness MDM Narrative Medical decision making narrative: The patient EKG upon arrival showing sinus rhythm with a heart rate of [address] elevation or depression CBC shows no acute significant pathology with the patient chemistry showing acute kidney injury and she also have blood sugar of 73 she was provided with juice and p.o. sugar that was not able to elevate her blood sugar adequately she was started on dextrose and D10 at 100 cc/h as well as dextrose 50 given one- time The patient blood pressure is responding to IV fluids she will be admitted for further hydration The patient case was discussed with Dr. Willard who presented to the bedside to evaluate the patient Lab Data Labs: Lab Results 02/08/24 02/08/24 02/08/24 Range/Units 12:17 12:20 13:34 WBC 13.2 H (4.0-11.0) 10^3/uL RBC 3.56 L (4.20-5.40) 10^6/uL Hgb 9.9 L (12.0-16.0) g/dL Hct 31.0 L (36.0-48.0) % MCV 87.1 (81.0-99.0) fL MCH 27.8 (26.7-34.0) pg MCHC 31.9 (29.9-35.2) g/dL RDW 13.6 (11.0-15.0) % Plt Count 282 (150-450) 10^3/uL MPV 11.5 (9.5-13.5) fL Seg Neuts % (Manual) 67.0 Band Neutrophils % 2.0 (0-5) % Lymphocytes % (Manual) 16.0 L (20.5-60.0) % Monocytes % (Manual) 10.0 (1.7-12.0) % Eosinophils % (Manual) 5.0 (0.9-7.0) % Basophils % (Manual) 0.0 L (0.2-2.0) % Neutrophils # (Manual) 8.84 H (1.4-6.5) 10^3/uL Band Neutrophils # 0.3 (0.0-0.3) 10^3/uL Lymphocytes # (Manual) 2.11 (1.20-3.80) 10^3/uL Monocytes # (Manual) 1.32 H (0.30-0.80) 10^3/uL Eosinophils # (Manual) 0.66 (0.00-0.70) 10^3/uL Basophils # (Manual) 0.00 (0.00-0.10) 10^3/uL Sodium 130 L (136-145) mmol/L Potassium 3.7 (3.5-5.1) mmol/L Chloride 96 L (98-107) mmol/L Carbon Dioxide 22.1 (21.0-32.0) mmol/L Anion Gap 15.6 BUN 80.0 H* (7.0-18.0) mg/dL Creatinine 2.26 H (0.55-1.02) mg/dL Est GFR ( Amer) 26 L (>=60) Est GFR (Non-Af Amer) 21 L (>=60) BUN/Creatinine Ratio 35.4 Glucose 73 L (74-106) mg/dL Lactate 1.9 (0.4-2.0) mmol/L Calcium 8.9 (8.5-10.1) mg/dL Magnesium 2.8 H (1.8-2.4) mg/dL Total Bilirubin 0.3 (0.2-1.0) mg/dL AST 29 (15-37) U/L ALT 81 H (14-59) U/L Alkaline Phosphatase 89 (46-116) U/L Troponin I High Sens 24.0 (4.0-51.3) pg/mL Total Protein 6.9 (6.4-8.2) g/dL Albumin 2.5 L (3.4-5.0) g/dL Globulin 4.4 g/dL Albumin/Globulin Ratio 0.6 POC Glucose 81 78 (74-106) mg/dL 02/08/24 Range/Units 14:36 WBC (4.0-11.0) 10^3/uL RBC (4.20-5.40) 10^6/uL Hgb (12.0-16.0) g/dL Hct (36.0-48.0) % MCV (81.0-99.0) fL MCH (26.7-34.0) pg MCHC (29.9-35.2) g/dL RDW (11.0-15.0) % Plt Count (150-450) 10^3/uL MPV (9.5-13.5) fL Seg Neuts % (Manual) Band Neutrophils % (0-5) % Lymphocytes % (Manual) (20.5-60.0) % Monocytes % (Manual) (1.7-12.0) % Eosinophils % (Manual) (0.9-7.0) % Basophils % (Manual) (0.2-2.0) % Neutrophils # (Manual) (1.4-6.5) 10^3/uL Band Neutrophils # (0.0-0.3) 10^3/uL Lymphocytes # (Manual) (1.20-3.80) 10^3/uL Monocytes # (Manual) (0.30-0.80) 10^3/uL Eosinophils # (Manual) (0.00-0.70) 10^3/uL Basophils # (Manual) (0.00-0.10) 10^3/uL Sodium (136-145) mmol/L Potassium (3.5-5.1) mmol/L Chloride (98-107) mmol/L Carbon Dioxide (21.0-32.0) mmol/L Anion Gap BUN (7.0-18.0) mg/dL Creatinine (0.55-1.02) mg/dL Est GFR ( Amer) (>=60) Est GFR (Non-Af Amer) (>=60) BUN/Creatinine Ratio Glucose (74-106) mg/dL Lactate (0.4-2.0) mmol/L Calcium (8.5-10.1) mg/dL Magnesium (1.8-2.4) mg/dL Total Bilirubin (0.2-1.0) mg/dL AST (15-37) U/L ALT (14-59) U/L Alkaline Phosphatase (46-116) U/L Troponin I High Sens (4.0-51.3) pg/mL Total Protein (6.4-8.2) g/dL Albumin (3.4-5.0) g/dL Globulin g/dL Albumin/Globulin Ratio POC Glucose 279 H (74-106) mg/dL Discharge Plan Discharge Chief Complaint: Weakness Clinical Impression: EVA (acute kidney injury), Hypoglycemia Hypotension Qualifiers: Hypotension type: unspecified hypotension type Qualified Code(s): I95.9 - Hypotension, unspecified Patient Disposition: Admitted As Inpatient Time of Disposition Decision: 15:02
[2024-02-08 15:49] LABS: Lactate/Lactic Acid 1.8 mmol/L (0.4-2.0)
[2024-02-08 15:53] LABS: Amylase 40 U/L (25-115)
[2024-02-08 15:54] LABS: Troponin I High Sensitivity 20.2 pg/mL (4.0-51.3)
--- OUTSIDE RECORDS SUMMARY | 2024-02-08 16:32 | XMS_ITS | CCD ---
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 Role Phone Geo Mathew Unavailable CHASE AMAYA Attending Unavailable UNKNOWN, PHYSICIAN Referring Unavailable NIK BELL Primary Care Unavailable ANDREW LOONEY Admitting Unavailable MONSE Bell Primary Care Provider [phone] MD Geo Mathew Attending Provider DR NIK [...] SuhaSabrina Unavailable MONSE Bell Primary Care Provider [phone] MD Geo Mathew Attending Provider Geo Mathew Admitting UnavailGeo Ramirez Attending UnavailNik Argueta Primary Care Unavailable Geo Mathew Admitting UnavailGeo Ramirez Attending UnavailNik Argueta Primary Care Unavailable Nik Bell MD Primary Care Provider [phone] NAJENNIFER MUSTAFA Referring Unavailable AURE, ANDREW Admitting [...] Facility (1 source) [facility] Other (5 sources) Penicillins; Translations: [PENICILLINS] Drug allergy (disorder) 09-20-2009 [facility] Repository (3 sources) Penicillin; Translations: [PENICILLIN] Drug Allergy 07-19-2022 [facility] Repository (1 source) Penicillins Drug allergy (disorder) 01-10-2023 [facility] Repository (2 sources) Penicillins Drug Allergy 10-28-2014 [facility] Medications Current Medications Medication Drug Class(es) [...] 2 diabetes mellitus with hyperglycemia, unspecified whether intermediate insulin use (CMS/HCC) INJECT 86 UNITS UNDER [...] 1 tablet Orally Once a day Not-Taking N-Gxyxhvbnkast-F8-B1 2 3-35-2 MG (3 sources) take 1 tablet by mouth twice daily U-Gfixsjqlxham-N9-B1 2 3-35-2 MG 1 tablet Orally Twice [...] disease (3 sources) Atherosclerotic heart disease of [place] coronary artery without angina pectoris; Translations: [Coronary atherosclerosis] Onset: 3 06-04-2023 Chronic Coronary atherosclerosis and other heart disease (2 sources) Coronary atherosclerosis and other heart disease; Translations: [Atherosclerosis of [place] arteries of extremities with intermittent claudication, left [...] Onset: 2 Chronic Other aftercare (1 source) senior care (current) use of anticoagulants; Translations: [INSTALLMENT ACCOUNT CHECKER CURRNT USE ANTICOAGULANTS] Onset: 3 Episodic Other aftercare (1 source) Other intermediate (current) drug therapy; Translations: [OTH [facility] CURRENT DRUG THERAPY] Onset: 3 Episodic Other aftercare (1 source) 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) use of antithrombotics/antipl atelets; Translations: [INSTALLMENT ACCOUNT CHECKER ANTITHROMBOT/ANTIPLATL ETS] Onset: 3 Episodic Other aftercare (1 source) senior care (current) use of insulin; Translations: [[facility] CURRENT USE OF INSULIN] Onset: 3 Episodic Other aftercare (1 source) senior care (current) use of aspirin; Translations: [[facility] CURRENT USE OF ASPIRIN] Onset: 3 Episodic [...] Range Facility 36on 01-01-2024 36 Needs appt [facility] Follow-Upon 12-19-2023 Follow-Up [id number] Pancho Patel 1955 F Date Provider Department Center 12/19/2023 ANABELLE CLAUDIO HVCVASEBETY [facility] Family History Problem Relation Age of Onset Diabetes Mother Cancer Mother Heart disease Father Alcohol abuse Brother Diabetes Brother Family Status - Relation Status Age at Mother Father Brother Level of Service:60010 [place] OFFICE/OUTPATIENT ESTABLISHED LOW MDM 20 MIN Reason for Visit and Comments: Hospital Follow-up [832] - 12/04/23 impatient PAD [facility] 30on 12-05-2023 30 Daily Case Managemen t [...] and under toe wounds 12/05/23 0236 Normal [facility] BASIC METABOLIC PANELon 11-11 Anion gap [Moles/Vol] 7 mmol/L Normal 7-20 [facility] Comment on above: Performed By: #### L [id number] #### [facility] ([facility]) [address] [place] [address] Calcium [Mass/Vol] 8.6 mg/dL Normal 8.6-10.3 [facility] Comment on above: Performed By: #### L [id number] #### [facility] ([facility]) [address] [place] [address] Chloride [Moles/Vol] 105 mmol/L Normal 98-107 [facility] Comment on above: Performed By: #### L [id number] #### [facility] ([facility]) [address] [place] [address] CO2 [Moles/Vol] 27 mmol/L Normal 21-31 [facility] Comment on above: Performed By: #### L [id number] #### [facility] ([facility] [address] [place] [address] Creatinine [Mass/Vol] 0.97 mg/dL Normal 0.60-1.20 [facility] Comment on above: Performed By: #### L [id number] #### [facility] ([facility] [address] [place] [address] GLOMERULAR FILTRATION RATE ML/MIN/1.73 SQ M.PREDICTED 63.3 mL/min/1.73m*2 Normal >60.0 [facility] Comment on above: Result Comment: The [facility]???s estimated glomerular filtration rate (eGFR) will no [...] individuals. Performed By: #### L [id number] #### [facility] ([facility] [address] [place] [address] Glucose [Mass/Vol] 192 mg/dL High 70-100 [facility] Comment on above: Performed By: #### L [id number] #### [facility] ([facility] [address] [place] [address] Potassium [Moles/Vol] 4.1 mmol/L Normal 3.5-5.1 [facility] Comment on above: Performed By: #### L [id number] #### [facility] ([facility] [address] [place] [address] Sodium [Moles/Vol] 135 mmol/L Low 136-145 [facility] Comment on above: Performed By: #### L [id number] #### [facility] ([facility]) [address] [place] [address] Urea nitrogen [Mass/Vol] 29 mg/dL High 7-25 [facility] Comment on above: Performed By: #### L [id number] #### [facility] ([facility] [address] [place] [address] UREA NITROGEN/CREATININE (MASS RATIO) IN SER/PLAS 29.9 Normal [facility] Comment on above: Performed By: #### L [id number] #### [facility] ([facility] [address] [place] [address] CBCon 12-05-2023 Erythrocyte distribution width (RBC) [Ratio] 13.5 % Normal 11.5-15.0 [facility] Comment on above: Performed By: #### L [id number] #### [facility] ([facility] [address] [place] [address] ERYTHROCYTE MEAN CORPUSCULAR HEMOGLOBIN CONCENTRATION (G/DL) BY AUTOMATED 32.3 g/dL Normal 32.0-35.0 [facility] Comment on above: Performed By: #### L [id number] #### [facility] ([facility]) [address] [place] [address] Hematocrit (Bld) [Volume fraction] 30.0 % Low 36.0-48.0 [facility] Comment on above: Performed By: #### L [id number] #### [facility] ([facility]) [address] [place] [address] Hemoglobin (Bld) [Mass/Vol] 9.7 g/dL Low 12.0-15.0 [facility] Comment on above: Performed By: #### L [id number] #### [facility] ([facility]) [address] [place] [address] MCH (RBC) [Entitic mass] 28.6 pg Normal 27.0-33.0 [facility] Comment on above: Performed By: #### L [id number] #### [facility] ([facility]) [address] [place] [address] MCV (RBC) [Entitic vol] 88.5 fL Normal 82.0-98.0 [facility] Comment on above: Performed By: #### L [id number] #### [facility] ([facility] [address] [place] [address] PLATELETS (10*3/UL) IN BLOOD AUTOMATED COUNT 182 10*3/uL Normal 150-400 [facility] Comment on above: Performed By: #### L [id number] #### [facility] ([facility] [address] [place] [address] RBC (Bld) [#/Vol] 3.39 10*6/uL Low 3.80-5.00 [facility] Comment on above: Performed By: #### L [id number] #### [facility] ([facility] [address] [place] [address] WBC (Bld) [#/Vol] 8.35 10*3/uL Normal 4.00-10.60 [facility] Comment on above: Performed By: #### L [id number] #### [facility] ([facility] [address] [place] [address] NURSNOTEon 12-05-2023 NURSNOTE Patient IV removed a nd wheeled out to husbands truck at the main enterance Normal [facility] POCT GLUCOSE METER UNSOLICIT ED RESULTSon 12-05-2023 Glucose [Mass/Vol] 172 mg/dL High 70-105 [facility] Comment on above: Order Comment: Waive d Testing in the ED is performed under the ED CLIA certificate #[id number]. Result Comment: [email or web address] rbo Performed By: #### L [id number] #### [facility] ([facility] [address] [place] [address] Glucose [Mass/Vol] 194 mg/dL High 70-105 [facility] Comment on above: Order Comment: Waive d Testing in the ED is performed under the ED CLIA certificate #[id number]. Result Comment: kret tin Performed By: #### L [id number] #### [facility] ([facility] [address] [place] [address] APTTon 12-04-2023 ACTIVATED PARTIAL THROMBOPLASTIN TIME IN PPP BY COAGULATION ASSAY 152.0 Seconds Critically high 25.0-35.0 [facility] Comment on above: Result Comment: Clin ical significance of the APTT is questionable in the presence of heparin. Performed By: #### L [id number] #### [facility] ([facility] [address] [facility] [place] [address] ACTIVATED PARTIAL THROMBOPLASTIN TIME IN PPP BY COAGULATION ASSAY 140.0 Seconds Critically high 25.0-35.0 [facility] Comment on above: Result Comment: Clin ical significance of the APTT is questionable in the presence of heparin. Performed By: #### L [id number] #### [facility] ([facility] [address] [place] [address] BASIC METABOLIC PANELon 11-11 Anion gap [Moles/Vol] 10 mmol/L Normal 7-20 [facility] Comment on above: Performed By: #### L [id number] #### [facility] ([facility] [address] [place] [address] Calcium [Mass/Vol] 9.6 mg/dL Normal 8.6-10.3 [facility] Comment on above: Performed By: #### L [id number] #### [facility] ([facility] [address] [place] [address] Chloride [Moles/Vol] 101 mmol/L Normal 98-107 [facility] Comment on above: Performed By: #### L [id number] #### [facility] ([facility]) [address] [place] [address] CO2 [Moles/Vol] 24 mmol/L Normal 21-31 [facility] Comment on above: Performed By: #### L [id number] #### [facility] ([facility] [address] [place] [address] Creatinine [Mass/Vol] 1.32 mg/dL High 0.60-1.20 [facility] Comment on above: Performed By: #### L [id number] #### [facility] ([facility] [address] [place] [address] GLOMERULAR FILTRATION RATE ML/MIN/1.73 SQ M.PREDICTED 43.7 mL/min/1.73m*2 Low >60.0 [facility] Comment on above: Result Comment: The [facility]???s estimated glomerular filtration rate (eGFR) will no [...] group of individuals. Performed By: #### L [id number] #### [facility] ([facility] [address] [place] [address] Glucose [Mass/Vol] 268 mg/dL High 70-100 [facility] Comment on above: Performed By: #### L [id number] #### [facility] ([facility] [address] [place] [address] Potassium [Moles/Vol] 4.5 mmol/L Normal 3.5-5.1 [facility] Comment on above: Performed By: #### L [id number] #### [facility] ([facility] [address] [place] [address] Sodium [Moles/Vol] 130 mmol/L Low 136-145 [facility] Comment on above: Performed By: #### L [id number] #### [facility] ([facility] [address] [place] [address] Urea nitrogen [Mass/Vol] 42 mg/dL High 7- [facility] Comment on above: Performed By: #### L [id number] #### [facility] ([facility] [address] [place] [address] UREA NITROGEN/CREATININE (MASS RATIO) IN SER/PLAS 31.8 Normal [facility] Comment on above: Performed By: #### L [id number] #### [facility] ([facility] [address] [place] [address] CBC WITH AUTO DIFFERENTIALon 12-04-2023 Basophils (Bld) [#/Vol] 0.04 10*3/uL Normal 0.00-0.20 [facility] Comment on above: Performed By: #### L [id number] #### [facility] ([facility] [address] [place] [address] Basophils/100 WBC (Bld) 0.4 % Normal 0.0-1.0 [facility] Comment on above: Performed By: #### L [id number] #### [facility] ([facility]) [address] [place] [address] Eosinophils (Bld) [#/Vol] 0.18 10*3/uL Normal 0.00-0.50 [facility] Comment on above: Performed By: #### L [id number] #### [facility] ([facility] [address] [place] [address] Eosinophils/100 WBC (Bld) 1.9 % Normal 0.0-6.0 [facility] Comment on above: Performed By: #### L [id number] #### [facility] ([facility]) [address] [place] [address] Erythrocyte distribution width (RBC) [Ratio] 13.4 % Normal 11.5-15.0 [facility] Comment on above: Performed By: #### L [id number] #### [facility] ([facility]) [address] [place] [address] ERYTHROCYTE MEAN CORPUSCULAR HEMOGLOBIN CONCENTRATION (G/DL) BY AUTOMATED 33.3 g/dL Normal 32.0-35.0 [facility] Comment on above: Performed By: #### L [id number] #### [facility] ([facility]) [address] [place] [address] Hematocrit (Bld) [Volume fraction] 30.6 % Low 36.0-48.0 [facility] Comment on above: Performed By: #### L [id number] #### [facility] ([facility]) [address] [place] [address] Hemoglobin (Bld) [Mass/Vol] 10.2 g/dL Low 12.0-15.0 [facility] Comment on above: Performed By: #### L [id number] #### [facility] ([facility]) [address] [place] [address] Immature granulocytes (Bld) [#/Vol] 0.02 10*3/uL Normal 0.00-0.20 [facility] Comment on above: Performed By: #### L [id number] #### [facility] ([facility] [address] [place] [address] Immature granulocytes/100 WBC (Bld) 0.2 % Normal 0.0-1.0 [facility] Comment on above: Performed By: #### L [id number] #### [facility] ([facility]AKER) [address] [place] [address] Lymphocytes (Bld) [#/Vol] 3.07 10*3/uL Normal 1.20-4.00 [facility] Comment on above: Performed By: #### L [id number] #### [facility] ([facility]) [address] [place] [address] Lymphocytes/100 WBC (Bld) 32.0 % Normal 20.0-45.0 [facility] Comment on above: Performed By: #### L [id number] #### [facility] ([facility]) [address] [place] [address] MCH (RBC) [Entitic mass] 29.1 pg Normal 27.0-33.0 [facility] Comment on above: Performed By: #### L [id number] #### [facility] ([facility] [address] [place] [address] MCV (RBC) [Entitic vol] 87.2 fL Normal 82.0-98.0 [facility] Comment on above: Performed By: #### L [id number] #### [facility] ([facility] [address] [place] [address] Monocytes (Bld) [#/Vol] 0.96 10*3/uL Normal 0.10-1.00 [facility] Comment on above: Performed By: #### L [id number] #### [facility] ([facility] [address] [place] [address] Monocytes/100 WBC (Bld) 10.0 % Normal 5.0-12.0 [facility] Comment on above: Performed By: #### L [id number] #### [facility] ([facility] [address] [place] [address] Neutrophils (Bld) [#/Vol] 5.33 10*3/uL Normal 1.60-7.60 [facility] Comment on above: Performed By: #### L [id number] #### [facility] ([facility] [address] [place] [address] Neutrophils/100 WBC (Bld) 55.5 % Normal 40.0-72.0 [facility] Comment on above: Performed By: #### L [id number] #### [facility] ([facility] [address] [place] [address] NRBC (PER 100 WBCS) BY AUTOMATED COUNT 0.0 % Normal 0 [facility] Comment on above: Performed By: #### L [id number] #### [facility] ([facility]) [address] [place] [address] PLATELETS (10*3/UL) IN BLOOD AUTOMATED COUNT 207 10*3/uL Normal 150-400 [facility] Comment on above: Performed By: #### L [id number] #### [facility] ([facility] [address] [place] [address] RBC (Bld) [#/Vol] 3.51 10*6/uL Low 3.80-5.00 [facility] Comment on above: Performed By: #### L [id number] #### [facility] ([facility] [address] [place] [address] WBC (Bld) [#/Vol] 9.60 10*3/uL Normal 4.00-10.60 [facility] Comment on above: Performed By: #### L [id number] #### [facility] ([facility] [address] [place] [address] CONSULTon 12-04-2023 CONSULT -- Attestation signed by Jennifer Vaca MD at 12/04/2023 1:00 PM Pt with severe pain left leg Has no pulses History of PVD Plan for angiogram and intervention Reason For Consult left leg critical limb ischemia Referring Provider: [facility] emergency department History Of Present Illness Marimar [...] emergency department after being referred by 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 It is worse at night. She also reports significant pain in the toes. Past Medical History She has a past medical history of A-fib ([facility]), Aortic valve stenosis, Coronary artery disease, Diabetes mellitus ([facility]), Hypertension, and Peripheral vascular disease ([facility]). Surgical History She has a past surgical [...] 274 (H) (more content not included)... Normal [facility] CONSULT -- Attestation signed by Bev Bradford [...] has a past medical history of A-fib ([facility]), Aortic valve stenosis, Coronary artery disease, Diabetes mellitus ([facility]), Hypertension, and Peripheral vascular disease ([facility]). Surgical History She has a past surgical [...] Lab Results (more content not included)... Normal [facility] OPNOTEon 12-04-2023 OPNOTE LEFT LOWER EXTREMITY ANGIOGRAM (L), AORTOGRAM, LEFT LOWER EXTREMITY JETSTREAM AND ATHERECTOMY/THROMBECOM Y, LEFT LOWER EXTREMITY DRUG COATED BALLOON ANGIOPLASTY OF SFA AND POLITEAL ARTERIES, LEFT LOWER EXTREMITY DISTAL SFA AND POPLITEAL COVERED STENTING Operative Note Date: 12/04/2023 Location: [facility] OR Name: Marimar Patel, : 1955, Diagnosis Pre-op Diagnosis * PAD (peripheral artery disease) (CMS/HCC) [I73.9] Post-op Diagnosis * PAD (peripheral artery disease) (CMS/HCC) [I73.9] Procedures LEFT LOWER EXTREMITY ANGIOGRAM 14044 - [place] OFFICE/OUTPT VISIT,PROCEDURE ONLY AORTOGRAM 55004 - [place] OFFICE/OUTPT VISIT,PROCEDURE ONLY LEFT LOWER EXTREMITY JETSTREAM AND ATHERECTOMY/THROMBECOM Y 94339 - [place] OFFICE/OUTPT VISIT,PROCEDURE ONLY LEFT LOWER EXTREMITY DRUG COATED BALLOON ANGIOPLASTY OF SFA AND POLITEAL ARTERIES 65012 - [place] OFFICE/OUTPT VISIT,PROCEDURE ONLY LEFT LOWER EXTREMITY DISTAL SFA AND POPLITEAL COVERED STENTING 52509 - [place] OFFICE/OUTPT VISIT,PROCEDURE ONLY Surgeons * Jennifer Vaca - Primary Procedure Summary Anesthesia: General ASA: III Estimated Blood Loss: 20 mL Total IV Fluids: mL Drains: * None in log * Implants Type Name Action Serial No. Stent STENT,[id number] - [id number] - [id number] Implanted [id number] Staff: Call Center Professional: Fercho Farrell RN; Tonja Kelly; Olvin Ley RN Scrub Person: Anabelle Wolf Paper Cone Drying Machine Operator: Jaime Parekh CSA Indications: Marimar Patel is an 68 y.o. female who is having surgery for PAD (peripheral artery disease) ([facility]) [I73.9]. Patient presented with wrist pain and [...] common femoral artery. Micro sheath and 6 Taiwanese sheath were inserted. [place] flush catheter was placed in the abdominal aorta. Angiogram was done for the aorta and the iliac arteries. After that the catheter was placed in the contralateral external iliac artery angiogram was done for the left lower extremity. At this stage patient was given heparin. And then the 6 Taiwanese sheath exchanged to a 7 Taiwanese sheath with the tip in the superficial [...] was persistent because of this inserted a Milam Viabahn 6 x 10 cm cover the stent followed b (more content not included)... Normal [facility] POCT GLUCOSE METER UNSOLICIT ED RESULTSon 12-04-2023 Glucose [Mass/Vol] 173 mg/dL High 70-105 [facility] Comment on above: Order Comment: Waive d Testing in the ED is performed under the ED CLIA certificate #[id number]. Result Comment: sbel air Performed By: #### L [id number] #### [facility] ([facility] [address] [place] [address] Glucose [Mass/Vol] 176 mg/dL High 70-105 [facility] Comment on above: Order Comment: Waive d Testing in the ED is performed under the ED CLIA certificate #[id number]. Result Comment: czyd orc Performed By: #### L [id number] #### [facility] ([facility] [address] [place] [address] Glucose [Mass/Vol] 284 mg/dL High 70-105 [facility] Comment on above: Order Comment: Waive d Testing in the ED is performed under the ED CLIA certificate #[id number]. Result Comment: spar [email or web address] Performed By: #### L [id number] #### [facility] ([facility] [address] [place] [address] TROPONIN Ion 12-04-2023 Troponin I.cardiac [Mass/Vol] 0.02 ng/mL Normal 0.00-0.04 [facility] Comment on above: Performed By: #### L [id number] #### [facility] ([facility] [address] [place] [address] APTTon 12-03-2023 ACTIVATED PARTIAL THROMBOPLASTIN TIME IN PPP BY COAGULATION ASSAY 35.8 Seconds High 25.0-35.0 [facility] Comment on above: Result Comment: Clin ical significance of the APTT is questionable in the presence of heparin. Performed By: #### L [id number] #### [facility] ([facility]) [address] [place] [address] BASIC METABOLIC PANELon -2 Anion gap [Moles/Vol] 13 mmol/L Normal 7-20 [facility] Comment on above: Performed By: #### L [id number] ####[facility] ([facility])[address] [place] [address] Calcium [Mass/Vol] 11.5 mg/dL High 8.6-10.3 [facility] Comment on above: Performed By: #### L AB15 ####[facility] ([facility] [place] [address] Chloride [Moles/Vol] 93 mmol/L Low 98-107 [facility] Comment on above: Performed By: #### L [id number] ####[facility] ([facility] [place] [address] CO2 [Moles/Vol] 27 mmol/L Normal 21-31 [facility] Comment on above: Performed By: #### L [id number] ####[facility] ([facility] [place] [address] Creatinine [Mass/Vol] 1.68 mg/dL High 0.60-1.20 [facility] Comment on above: Performed By: #### L [id number] ####[facility] ([facility] [place] [address] GLOMERULAR FILTRATION RATE ML/MIN/1.73 SQ M.PREDICTED 32.7 mL/min/1.73m*2 Low >60.0 [facility] Comment on above: Result Comment: [facility]???s estimated glomerular filtration rate (eGFR) will no [...] of individuals. Performed By: #### L [id number] ####[facility] ([facility] [place] [address] Glucose [Mass/Vol] 274 mg/dL High 70-100 [facility] Comment on above: Performed By: #### L [id number] ####[facility] ([facility] [place] [address] Potassium [Moles/Vol] 5.1 mmol/L Normal 3.5-5.1 [facility] Comment on above: Performed By: #### L [id number] ####[facility] ([facility] [place] [address] Sodium [Moles/Vol] 128 mmol/L Low 136-145 [facility] Comment on above: Performed By: #### L [id number] ####[facility] ([facility] [place] [address] Urea nitrogen [Mass/Vol] 55 mg/dL High 7-25 [facility] Comment on above: Performed By: #### L [id number] ####[facility] ([facility] [place] [address] UREA NITROGEN/CREATININE (MASS RATIO) IN SER/PLAS 32.7 Normal [facility] Comment on above: Performed By: #### L [id number] ####[facility] ([facility] [place] [address] CBC WITH AUTO DIFFERENTIALon 12-03-2023 Basophils (Bld) [#/Vol] 0.05 10*3/uL Normal 0.00-0.20 [facility] Comment on above: Performed By: #### L [id number] #### [facility] ([facility] [address] [place] [address] Basophils/100 WBC (Bld) 0.5 % Normal 0.0-1.0 [facility] Comment on above: Performed By: #### L [id number] #### [facility] ([facility] [address] [place] [address] Eosinophils (Bld) [#/Vol] 0.21 10*3/uL Normal 0.00-0.50 [facility] Comment on above: Performed By: #### L [id number] #### [facility] ([facility] [address] [place] [address] Eosinophils/100 WBC (Bld) 1.9 % Normal 0.0-6.0 [facility] Comment on above: Performed By: #### L [id number] #### [facility] ([facility] [address] [place] [address] Erythrocyte distribution width (RBC) [Ratio] 13.2 % Normal 11.5-15.0 [facility] Comment on above: Performed By: #### L [id number] #### [facility] ([facility] [address] [place] [address] ERYTHROCYTE MEAN CORPUSCULAR HEMOGLOBIN CONCENTRATION (G/DL) BY AUTOMATED 33.5 g/dL Normal 32.0-35.0 [facility] Comment on above: Performed By: #### L [id number] #### [facility] ([facility] [address] [place] [address] Hematocrit (Bld) [Volume fraction] 34.6 % Low 36.0-48.0 [facility] Comment on above: Performed By: #### L [id number] #### [facility] ([facility] [address] [place] [address] Hemoglobin (Bld) [Mass/Vol] 11.6 g/dL Low 12.0-15.0 [facility] Comment on above: Performed By: #### L [id number] #### [facility] ([facility] [address] [place] [address] Immature granulocytes (Bld) [#/Vol] 0.03 10*3/uL Normal 0.00-0.20 [facility] Comment on above: Performed By: #### L [id number] #### [facility] ([facility]) [address] [place] [address] Immature granulocytes/100 WBC (Bld) 0.3 % Normal 0.0-1.0 [facility] Comment on above: Performed By: #### L [id number] #### [facility] ([facility]) [address] [place] [address] Lymphocytes (Bld) [#/Vol] 3.27 10*3/uL Normal 1.20-4.00 [facility] Comment on above: Performed By: #### L [id number] #### [facility] ([facility]) [address] [place] [address] Lymphocytes/100 WBC (Bld) 30.0 % Normal 20.0-45.0 [facility] Comment on above: Performed By: #### L [id number] #### [facility] ([facility]) [address] [place] [address] MCH (RBC) [Entitic mass] 28.3 pg Normal 27.0-33.0 [facility] Comment on above: Performed By: #### L [id number] #### [facility] ([facility]) [address] [place] [address] MCV (RBC) [Entitic vol] 84.4 fL Normal 82.0-98.0 [facility] Comment on above: Performed By: #### L [id number] #### [facility] ([facility]) [address] [place] [address] Monocytes (Bld) [#/Vol] 1.05 10*3/uL High 0.10-1.00 [facility] Comment on above: Performed By: #### L [id number] #### [facility] ([facility]) [address] [place] [address] Monocytes/100 WBC (Bld) 9.6 % Normal 5.0-12.0 [facility] Comment on above: Performed By: #### L [id number] #### [facility] ([facility]) [address] [place] [address] Neutrophils (Bld) [#/Vol] 6.28 10*3/uL Normal 1.60-7.60 [facility] Comment on above: Performed By: #### L [id number] #### [facility] ([facility] [address] [place] [address] Neutrophils/100 WBC (Bld) 57.7 % Normal 40.0-72.0 [facility] Comment on above: Performed By: #### L [id number] #### [facility] ([facility] [address] [place] [address] NRBC (PER 100 WBCS) BY AUTOMATED COUNT 0.0 % Normal 0 [facility] Comment on above: Performed By: #### L [id number] #### [facility] ([facility] [address] [place] [address] PLATELETS (10*3/UL) IN BLOOD AUTOMATED COUNT 237 10*3/uL Normal 150-400 [facility] Comment on above: Performed By: #### L [id number] #### [facility] ([facility] [address] [address] RBC (Bld) [#/Vol] 4.10 10*6/uL Normal 3.80-5.00 [facility] Comment on above: Performed By: #### L [id number] #### [facility] ([facility] [address] [place] [address] WBC (Bld) [#/Vol] 10.89 10*3/uL High 4.00-10.60 [facility] Comment on above: Performed By: #### L [id number] #### [facility] ([facility] [address] [place] [address] CTA AORTA AND BILATERAL ILIO FEMORAL RUNOFF [...] to the ankle. Electronically signed: Gayle Quintanilla. 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 Patient states doctor set it up for her to get angioplasty. [facility] EDPROVon 12-03-2023 EDPROV HPI Chief Complaint Patient [...] Attestion Mark Gaines NP 12/03/23 1649 Normal [facility] HEMOGLOBIN A1Con 12-03-2023 Glucose [Mass/Vol] 252 mg/dL [facility] Comment on above: Performed By: #### L [id number] #### [facility] ([facility]) [address] [place] [address] HbA1c (Bld) [Mass fraction] 10.4 % High 4.0-6.0 [facility] Comment on above: Performed By: #### L [id number] #### [facility] ([facility]) [address] [place] [address] HPon 12-03-2023 HP History Of Present Illness [...] 10*3/uL 6.28 (more content not included)... Normal [facility] POCT GLUCOSE METER UNSOLICIT ED RESULTSon 12-03-2023 Glucose [Mass/Vol] 337 mg/dL High 70-105 [facility] Comment on above: Order Comment: Waive d Testing in the ED is performed under the ED CLIA certificate #[id number]. Result Comment: spar k20 Performed By: #### L [id number] ####[facility] ([facility]OMER)[address] [place] [address] PROTIME-INRon 12-03-2023 INR IN PPP BY COAGULATION ASSAY 1.24 High 0.90-1.10 [facility] Comment on above: Result Comment: ACCC P [...] RANGE. CHEST 1995;108:231S-246S. Performed By: #### L [id number] #### [facility] ([facility]) [address] [place] [address] PROTHROMBIN TIME (PT) IN PPP BY COAGULATION ASSAY 15.7 Seconds High 12.3-14.8 [facility] Comment on above: Performed By: #### L [id number] #### [facility] ([facility]) [address] [place] [address] Telephoneon 10-29-2023 Telephone [id number] Pancho Patel 1955 F Date Provider Department Center 10/29/2023 [id number]-FOAMLOPDIPAK VILLANUEVA [facility] Family History Problem Relation Age of Onset Diabetes Mother Cancer Mother Heart disease Father Alcohol abuse Brother Diabetes Brother Family Status - Relation Status Age at Mother Father Brother Normal [facility] US UNI ankle/arm indiceson 0 02-24-2023 US UNI ankle/arm indices [facility] Main [place] [address] [place] [address] Ultrasound Report Signed Patient: Mairmar Patel MR#: [id number] 525 : 1955 Acct:[id number] Age/Sex: 67 / F ADM Date: 02/19/23 Loc: [facility] Room: Type: [facility] CLI Attending Dr: Geo Mathew MD Ordering [...] Geo Mathew MD02/24/2023 3:16 PM Dictation Location: [facility]04 Tech: Ale Lim Transcribed By: [facility] 02/24/23 151 Dictated By: Geo Mathew MD 02/24/23 1515 Signed By: 02/24/23 [address] [facility] [address] STROKE HEAD WOon 02-01-20 CT STROKE [...] by: CHANTAL KILLIAN Date: 2023-01-31 12:44 Normal [facility] 36on 01-28-2023 36 Lmom for patient to call to schedule appt Normal [facility] 36on 01-22-2023 36 Hi. I am not sure of your process yet with refilling medications Normal [facility] Refillon 01-21-2023 Refill [id number] Pancho Patel ie L 1955 F Date Provider Department Center 01/21/2023 88314-QMRLWEAFBKAMINI AGUILAR HVCVASENDO [place] HeartVAS Family History Problem Relation Age of Onset Diabetes Mother Cancer Mother Heart disease Father Alcohol abuse Brother Diabetes Brother Family Status - Relation Status Age at Mother Father Brother Reason for Visit and Comments: Med Refill [[id number]] Normal [facility] Blood Urea Nitrogenon 2022 Urea nitrogen [Mass/Vol] 48 mg/dL High 9-23 [facility] Comment on above: Performed By: #### C REAT, BUN #### [facility] [address] [place] [address] [place] Creatinineon 01-13-2023 Creatinine [Mass/Vol] 1.75 mg/dL High 0.44-1.03 [facility] Comment on above: Performed By: #### C REAT, BUN #### [facility] [address] [place] [address] Creatinine Clr Calc Pharmacy 27.91 [facility] Comment on above: Result Comment: PERF ORMED BY: [place] [address] PATHOLOGIST REHABILITATION PROGRAM MANAGER FAHAD ASKEW M.D. Performed By: #### C REAT, BUN #### [facility] [address] [place] [address] Estimated GFR ( [place] 35 [facility] Comment on above: Result Comment: GFR estimated reference range: According to KDOQI guidelines, <60 ml/min/1.73m2 is sufficient to diagnose a patient with chronic kidney disease. Performed By: #### C REAT, BUN #### [facility] [address] [place] [address] [place] Estimated GFR (Non- Am 29 Normal [facility] Comment on above: Performed By: #### C REAT, BUN #### [facility] [address] Creatinine and Glomerular fi ltration rate.predicted panel (S/P/Bld)Ordered By: Geo Mathew on 01-13-2023 Creatinine [Mass/Vol] 1.75 mg/dL 0.44-1.03 [facility] Estimated glomerular filtrat ion rate (GFR) non- AmericanOrdered By: Geo Mathew on 01-13-2023 GFR/1.73 sq M.predicted among non-blacks MDRD (S/P/Bld) [Vol rate/Area] 29 mL/Min [facility] No Panel InformationOrdered By: Geo Mathew on 01-13-2023 Estimated GFR () 35 mL/Min [facility] Comment on above: GFR estimated refere nce range: According to KDOQI guidelines, <60 ml/min/1.73m2 is sufficient to diagnose a patient with chronic kidney disease. Pharmacy Creatinine Clearance (Chem 27.91 [facility] Urea nitrogen [Mass/volume] in Serum or PlasmaOrdered By: Geo Mathew on 01-13-2023 Urea nitrogen [Mass/Vol] 48 mg/dL 9 [facility] ALBUMINon 08-17-2022 Albumin [Mass/Vol] 3.5 g/dL Normal 3.4-5.0 [facility] Comment on above: Performed By: #### B MP, PREALB, ALB ####[facility] [address] [address]DrIndu Sruthi Hawk CBC AUTO DIFFon 08-17-2022 BASO # 0.0 103/ul Normal 0.0-0.1 [facility] Comment on above: Performed By: #### C BC #### [facility] [address] [place] [address] [address] Sruthi Arechiga Basophils/100 WBC (Bld) 0.5 % Normal 0.2-2.0 [facility] Comment on above: Performed By: #### C BC #### [facility] [address] [place] [address] Dr. Sruthi Arechiga EO # 0.3 103/ul Normal 0.0-0.7 [facility] Comment on above: Performed By: #### C BC #### [facility] [address] [place] [address] Dr. Sruthi Arechiga Eosinophils/100 WBC (Bld) 3.6 % Normal 0.9-7.0 [facility] Comment on above: Performed By: #### C BC #### [facility] [address] [place] [address] Dr. Sruthi Arechiga Erythrocyte distribution width (RBC) [Ratio] 14.5 % Normal 11.0-15.0 [facility] Comment on above: Performed By: #### C BC #### [facility] [address] [place] [address] Dr. Sruthi Arechiga Hematocrit (Bld) [Volume fraction] 37.7 % Normal 36.0-48.0 [facility] Comment on above: Performed By: #### C BC #### [facility] [address] [place] [address] Dr. Sruthi Arechiga Hemoglobin (Bld) [Mass/Vol] 11.9 g/dL Critically low 12.0-16.0 [facility] Comment on above: Performed By: #### C BC #### [facility] [address] [place] [address] Dr. Sruthi Arechiga IG # 0.02 10e3/ul Normal 0.00-0.03 [facility] Comment on above: Performed By: #### C BC #### [facility] [address] [place] [address] Dr. Sruthi Arechiga IG % 0.2 % Normal 0.0-0.5 [facility] Comment on above: Performed By: #### C BC #### [facility] [address] [place] [address] Dr. Sruthi Arechiga LYMPH # 2.7 103/ul Normal 1.2-3.8 [facility] Comment on above: Performed By: #### C BC #### [facility] [address] [place] [address] Dr. Sruthi Arechiga Lymphocytes/100 WBC (Bld) 32.2 % Normal 20.5-60.0 [facility] Comment on above: Performed By: #### C BC #### [facility] [address] [place] [address] Dr. Sruthi Arechiga MANUAL DIFF REQ NO Normal [facility] Comment on above: Performed By: #### C BC #### [facility] [address] [place] [address] Dr. Sruthi Arechiga MCH (RBC) [Entitic mass] 26.8 pg Normal 26.7-34.0 [facility] Comment on above: Performed By: #### C BC #### [facility] [address] [place] [address] Dr. Sruthi Arechiga MCHC (RBC) [Mass/Vol] 31.6 g/dL Normal 29.9-35.2 [facility] Comment on above: Performed By: #### C BC #### [facility] [address] [place] [address] Dr. Sruthi Arechiga MCV (RBC) [Entitic vol] 84.9 fL Normal 81.0-99.0 [facility] Comment on above: Performed By: #### C BC #### [facility] [address] [place] [address] Dr. Sruthi Arechiga MONO # 0.8 103/ul Normal 0.3-0.8 [facility] Comment on above: Performed By: #### C BC #### [facility] [address] [place] [address] Dr. Sruthi Arechiga Monocytes/100 WBC (Bld) 9.6 % Normal 1.7-12.0 [facility] Comment on above: Performed By: #### C BC #### [facility] [address] [place] [address] Dr. Sruthi Arechiga NEUT # 4.5 103/ul Normal 1.4-6.5 [facility] Comment on above: Performed By: #### C BC #### [facility] [address] [place] [address] Dr. Sruthi Arechiga Neutrophils/100 WBC (Bld) 53.9 % Normal 43.0-75.0 [facility] Comment on above: Performed By: #### C BC #### [facility] [address] [place] [address] Dr. Sruthi Arechiga Platelet mean volume (Bld) [Entitic vol] 10.8 fL Normal 9.5-13.5 [facility] Comment on above: Performed By: #### C BC #### [facility] [address] [place] [address] Dr. Sruthi Arechiga PLT 246 103/ul Normal 150-450 [facility] Comment on above: Performed By: #### C BC #### [facility] [address] [place] [address] Dr. Sruthi Arechiga RBC 4.44 106/ul Normal 4.20-5.40 [facility] Comment on above: Performed By: #### C BC #### [facility] [address] [place] [address] Dr. Sruthi Arechiga WBC 8.4 103/ul Normal 4.0-11.0 [facility] Comment on above: Performed By: #### C BC #### [facility] [address] [place] [address] Dr. Sruthi Arechiga Covid-19 PCR [facility]on SARS-CoV-2 (COVID-19) RNA KOLE+probe Ql (Unsp spec) Not detected Normal NOT DETECTED [facility] Comment on above: Result Comment: This test is not yet approved or cleared by the [place] FDA. When there are no FDA-approved or cleared tests available, and other criteria are met, FDA can make tests available under an emergency access mechanism called an Emergency Use Authorization (EUA). The EUA for this test is supported by the [place] of Health and Human Service's (HHS's) declaration [...] SARS-CoV-2. Performed By: #### C VDTBH #### [facility] [address] [place] [address] Dr. Sruthi Arechiga GLYCOHEMOGLOBIN A1Con 2021 ADA RECOMMENDATION SEE BELOW Normal [facility] Comment on above: Result Comment: ADA RECOMMENDED LIMIT 4.0 - 6.0 ADA THERAPEUTIC TARGET < 7.0 ACTION SUGGESTED > 7.0 Performed By: #### H STROPN #### [facility] [address] [place] [address] Dr. Sruthi Arechiga Glucose [Mass/Vol] 255 mg/dL Normal [facility] Comment on above: Performed By: #### H STROPN #### [facility] [address] [place] [address] Dr. Sruthi Arechiga HbA1c (Bld) [Mass fraction] 10.5 % Critically high 4.5-6.2 [facility] Comment on above: Performed By: #### H STROPN #### [facility] [address] [place] [address] Dr. Sruthi Arechiga MRSA NARES #1on 08-17-2022 MRSA NARES #1 Culture Observations : NO GROWTH OF MRSA AT 48 HOURS. Normal [facility] Comment on above: Performed By: #### M RSAN1 ####[facility] [address] [place], [place] [address]Dr. Sruthi Arechiga PREALBUMINon 08-17-2022 Prealbumin [Mass/Vol] 23.6 mg/dL Normal 20.9-45.5 [facility] Comment on above: Performed By: #### B MP, PREALB, ALB ####[facility] [address] [address]Dr. Sruthi Arechiga PROF CHEM 8 (BAS METB)on Anion gap [Moles/Vol] 11.2 mmol/L Normal [facility] Comment on above: Performed By: #### B MP, PREALB, ALB ####[facility] [address] [place] [address]Dr. Sruthi Arechiga Calcium [Mass/Vol] 9.1 mg/dL Normal 8.5-10.1 [facility] Comment on above: Performed By: #### B MP, PREALB, ALB ####[facility] [address] [place], [place] [address]Dr. Sruthi Arechiga Chloride [Moles/Vol] 105 mmol/L Normal 98-107 [facility] Comment on above: Performed By: #### B MP, PREALB, ALB ####[facility] [address] [place], [place] [address]Dr. Sruthi Arechiga CO2 [Moles/Vol] 26.3 mmol/L Normal 21.0-32.0 [facility] Comment on above: Performed By: #### B MP, PREALB, ALB ####[facility] [address] [place], [place] [address]Dr. Sruthi Arechiga Creatinine [Mass/Vol] 0.72 mg/dL Normal 0.55-1.02 [facility] Comment on above: Performed By: #### B MP, PREALB, ALB ####[facility] [address] [place], [place] [address]Dr. Sruhti Hawk EGFR-AF POLISH >60 Normal >=60 [facility] Comment on above: Performed By: #### B MP, PREALB, ALB ####[facility] [address] [place], [place] [address]Dr. Sruthi Arechiga EGFR-NON AF POLISH >60 Normal >=60 [facility] Comment on above: Performed By: #### B MP, PREALB, ALB ####[facility] [address] [place], [place] [address]Dr. Sruthi Arechiga Glucose [Mass/Vol] 119 mg/dL Critically high 74-106 T [facility] Comment on above: Performed By: #### B MP, PREALB, ALB ####[facility] [address] [address]Dr. Sruthi Arechiga Potassium [Moles/Vol] 4.5 mmol/L Normal 3.5-5.1 [facility] Comment on above: Performed By: #### B MP, PREALB, ALB ####[facility] [address] [address]Dr. Sruthi Arechiga Sodium [Moles/Vol] 138 mmol/L Normal 136-145 [facility] Comment on above: Performed By: #### B MP, PREALB, ALB ####[facility] [address] [address]Dr. Sruthi Arechiga Urea nitrogen [Mass/Vol] 18.0 mg/dL Normal 7.0-18.0 [facility] Comment on above: Performed By: #### B MP, PREALB, ALB ####[facility] [address] [address]Dr. Sruthi Arechiga Urea nitrogen/Creatinine [Mass ratio] 25.0 mg/mg Normal [facility] Comment on above: Performed By: #### B MP, PREALB, ALB ####[facility] [address] [address]Dr. Sruthi Arechiga Covid-19 PCR ([facility]on 07-11 SARS-CoV-2 (COVID-19) RNA KOLE+probe Ql (Unsp spec) Not detected Normal NOT DETECTED [facility] Comment on above: Result Comment: When diagnostic [...] for this test is supported by the [place] of Health and Human Service's declaration that [...] used). Performed By: #### C VDTB #### [facility] [address] [address] [address] Sruthi Arechiga BNPon 07-07-2022 Natriuretic peptide B (Bld) [Mass/Vol] 1389.0 pg/mL Critically high <=900.0 [facility] Comment on above: Performed By: #### B DIE SINKING MACHINE OPERATOR, BMP ####[facility] Efpaonbzyd[address] [place], [place] [address]DrIndu Arechiga CBC AUTO DIFFon 07-07-2022 BASO # 0.0 103/ul Normal 0.0-0.1 [facility] Comment on above: Performed By: #### C BC ####[facility] [address] [place] [address]DrIndu Arechiga Basophils/100 WBC (Bld) 0.5 % Normal 0.2-2.0 [facility] Comment on above: Performed By: #### C BC ####[facility] Jzpqoepapg[address] [place] [address]DrIndu Arechiga EO # 0.2 103/ul Normal 0.0-0.7 [facility] Comment on above: Performed By: #### C BC ####[facility] Gyicwnoypo[address] [place], [place] [address]DrIndu Arechiga Eosinophils/100 WBC (Bld) 2.4 % Normal 0.9-7.0 [facility] Comment on above: Performed By: #### C BC ####[facility] Yqxdxhxdas[address] [place], [place] [address]DrIndu Arechiga Erythrocyte distribution width (RBC) [Ratio] 13.2 % Normal 11.0-15.0 [facility] Comment on above: Performed By: #### C BC ####[facility] Wyuqqcspbh8[address] [place] [address]Dr. Sruthi Arechiga Hematocrit (Bld) [Volume fraction] 32.4 % Critically low 36.0-48.0 [facility] Comment on above: Performed By: #### C BC ####[facility] Lubyrgylex[address] [place] [address]Dr. Sruthi Arechiga Hemoglobin (Bld) [Mass/Vol] 10.2 g/dL Critically low 12.0-16.0 [facility] Comment on above: Performed By: #### C BC ####[facility] Enrmtkoaxf[address] [place] [address]Dr. Sruthi Arechiga IG # 0.04 10e3/ul Critically high 0.00-0.03 [facility] Comment on above: Performed By: #### C BC ####[facility] Xfruefbalp5[address] [place] [address]Dr. Sruthi Arechiga IG % 0.5 % Normal 0.0-0.5 [facility] Comment on above: Performed By: #### C BC ####[facility] Gxkkvnilmy[address] [place], [place] [address]Dr. Sruthi Arechiga LYMPH # 2.1 103/ul Normal 1.2-3.8 [facility] Comment on above: Performed By: #### C BC ####[facility] Grufsublge[address] [place] [address]DrIndu Kamalasven Arechiga Lymphocytes/100 WBC (Bld) 23.9 % Normal 20.5-60.0 [facility] Comment on above: Performed By: #### C BC ####[facility] Tnpyijcsoq[address] [place] [address]DrIndu Kamalasven Arechiga MANUAL DIFF REQ NO Normal [facility] Comment on above: Performed By: #### C BC ####[facility] Tikspubopp6516 [place] [address]DrIndu Kamalasven Arechiga MCH (RBC) [Entitic mass] 26.8 pg Normal 26.7-34.0 [facility] Comment on above: Performed By: #### C BC ####[facility] Oomzdktrnt[address] [place], [place] [address]Dr. Sruthi Arechiga MCHC (RBC) [Mass/Vol] 31.5 g/dL Normal 29.9-35.2 [facility] Comment on above: Performed By: #### C BC ####[facility] Iiakuaosqq[address] [place] [id number]. Sruthi Arechiga MCV (RBC) [Entitic vol] 85.0 fL Normal 81.0-99.0 [facility] Comment on above: Performed By: #### C BC ####[facility] Wdgdqjdmye8[address] [place] [address]Dr. Sruthi Arechiga MONO # 1.1 103/ul Critically high 0.3-0.8 [facility] Comment on above: Performed By: #### C BC ####[facility] Dcmebfppwf7948 [place] [address]Dr. Sruthi Hawk Monocytes/100 WBC (Bld) 13.1 % Critically high 1.7-12.0 [facility] Comment on above: Performed By: #### C BC ####[facility] Kxijdypsaf[address] [place], [place] [address]Dr. Sruthi Arechiga NEUT # 5.2 103/ul Normal 1.4-6.5 [facility] Comment on above: Performed By: #### C BC ####[facility] Ujvmvjcflr[address] [place], [place] [address]Dr. Sruthi Arechiga Neutrophils/100 WBC (Bld) 59.6 % Normal 43.0-75.0 [facility] Comment on above: Performed By: #### C BC ####[facility] Iotbakzorh5[address] [place] [address]Dr. Sruthi Arechiga Platelet mean volume (Bld) [Entitic vol] 12.6 fL Normal 9.5-13.5 [facility] Comment on above: Performed By: #### C BC ####[facility] Skfdlpmrud[address] [place] [address]Dr. Sruthi Hawk PLT 146 103/ul Critically low 150-450 [facility] Comment on above: Performed By: #### C BC ####[facility] Pxowzqvrio06[address] [place] [address]Dr. Sruthi Arechiga RBC 3.81 106/ul Critically low 4.20-5.40 [facility] Comment on above: Performed By: #### C BC ####[facility] Pgacjkkigl5[address] [place] [address]Dr. Kamalasven Arechiga WBC 8.7 103/ul Normal 4.0-11.0 [facility] Comment on above: Performed By: #### C BC ####[facility] Atbpixqrfs4725 [place] [address]Dr. Sruthi Arechiga PROF CHEM 8 (BAS METB)on Anion gap [Moles/Vol] 12.0 mmol/L Normal [facility] Comment on above: Performed By: #### B DIE SINKING MACHINE OPERATOR, BMP ####[facility] Rbiuenuigv[address] [place], [place] [address]Dr. Sruthi Arechiga Calcium [Mass/Vol] 9.0 mg/dL Normal 8.5-10.1 [facility] Comment on above: Performed By: #### B DIE SINKING MACHINE OPERATOR, BMP ####[facility] Kjethgbklv[address] [place], [place] [address]Dr. Sruthi Arechiga Chloride [Moles/Vol] 99 mmol/L Normal 98-107 [facility] Comment on above: Performed By: #### B DIE SINKING MACHINE OPERATOR, BMP ####[facility] Jhgjhrqeeo63[address] [place], [place] [address]Dr. Sruthi Arechiga CO2 [Moles/Vol] 29.4 mmol/L Normal 21.0-32.0 [facility] [place] [facility] Comment on above: Performed By: #### B DIE SINKING MACHINE OPERATOR, BMP ####[facility] Doxhohiopd022[address] [place], [place] [address]Dr. Sruthi Arechiga Creatinine [Mass/Vol] 0.86 mg/dL Normal 0.55-1.02 [facility] Comment on above: Performed By: #### B DIE SINKING MACHINE OPERATOR, BMP ####[facility] Yfbxynnyjg[address] [place], [place] [address]Dr. Sruthi Arechiga EGFR-AF POLISH >60 Normal >=60 [facility] [place] [facility] Comment on above: Performed By: #### B DIE SINKING MACHINE OPERATOR, BMP ####[facility] Lccfoqcwfu[address] [place] [id number]. Sruthi Arechiga EGFR-NON AF POLISH >60 Normal >=60 [facility] Comment on above: Performed By: #### B DIE SINKING MACHINE OPERATOR, BMP ####[facility] Pnrcedcihm99[address] [place] [phone]. Sruthi Arechiga Glucose [Mass/Vol] 185 mg/dL Critically high 74-106 [facility] Comment on above: Performed By: #### B DIE SINKING MACHINE OPERATOR, BMP ####[facility] Taphetdysv3171 [place] [address]Dr. Sruthi Arechiga Potassium [Moles/Vol] 4.4 mmol/L Normal 3.5-5.1 [facility] Comment on above: Performed By: #### B DIE SINKING MACHINE OPERATOR, BMP ####[facility] Uxabhiyhnd280[address] [place] [address]Dr. Sruthi Arechiga Sodium [Moles/Vol] 136 mmol/L Normal 136-145 [facility] Comment on above: Performed By: #### B DIE SINKING MACHINE OPERATOR, BMP ####[facility] Apebxxpnvm16[address] [place] [id number]. Sruthi Arechiga Urea nitrogen [Mass/Vol] 27.0 mg/dL Critically high 7.0-18.0 [facility] Comment on above: Performed By: #### B DIE SINKING MACHINE OPERATOR, BMP ####[facility] Gewasfefwd[address] [place] [address]Dr. Sruthi Arechiga Urea nitrogen/Creatinine [Mass ratio] 31.4 mg/mg Normal [facility] Comment on above: Performed By: #### B DIE SINKING MACHINE OPERATOR, BMP ####[facility] Agxcixqmmn65[address] [place] [address]Dr. Sruthi Arechiga CBC AUTO DIFFon 07-06-2022 BASO # 0.0 103/ul Normal 0.0-0.1 [facility] Comment on above: Performed By: #### C VDTBH #### [facility] [address] [address] [address] Sruthi Arechiga Basophils/100 WBC (Bld) 0.4 % Normal 0.2-2.0 [facility] Comment on above: Performed By: #### C VDTBH #### [facility] [address] [place] [address] Dr. Sruthi Arechiga EO # 0.2 103/ul Normal 0.0-0.7 [facility] Comment on above: Performed By: #### C VDTBH #### [facility] [address] [place] [address] Dr. Sruthi Arechiga Eosinophils/100 WBC (Bld) 2.4 % Normal 0.9-7.0 [facility] Comment on above: Performed By: #### C VDTBH #### [facility] [address] [place] [address] Dr. Sruthi Arechiga Erythrocyte distribution width (RBC) [Ratio] 13.3 % Normal 11.0-15.0 [facility] Comment on above: Performed By: #### C VDTBH #### [facility] [address] [place] [address] Dr. Sruthi Arechiga Hematocrit (Bld) [Volume fraction] 32.0 % Critically low 36.0-48.0 [facility] Comment on above: Performed By: #### C VDTBH #### [facility] [address] [place] [address] Dr. Sruthi Arechiga Hemoglobin (Bld) [Mass/Vol] 10.0 g/dL Critically low 12.0-16.0 [facility] Comment on above: Performed By: #### C VDTBH #### [facility] [address] [place] [address] Dr. Sruthi Arechiga IG # 0.05 10e3/ul Critically high 0.00-0.03 [facility] Comment on above: Performed By: #### C VDTBH #### [facility] [address] [place] [address] Dr. Sruthi Arechiga IG % 0.5 % Normal 0.0-0.5 [facility] Comment on above: Performed By: #### C VDTBH #### [facility] [address] [place] [address] Dr. Sruthi Arechiga LYMPH # 2.4 103/ul Normal 1.2-3.8 [facility] Comment on above: Performed By: #### C VDTBH #### [facility] [address] [place] [address] Dr. Sruthi Arechiga Lymphocytes/100 WBC (Bld) 24.5 % Normal 20.5-60.0 [facility] Comment on above: Performed By: #### C VDTBH #### [facility] [address] [place] [address] Dr. Sruthi Arechiga MANUAL DIFF REQ NO Normal [facility] Comment on above: Performed By: #### C VDTBH #### [facility] [address] [place] [address] Dr. Sruthi Arechiga MCH (RBC) [Entitic mass] 26.5 pg Critically low 26.7-34.0 [facility] Comment on above: Performed By: #### C VDTBH #### [facility] [address] [place] [address] Dr. Sruthi Arechiga MCHC (RBC) [Mass/Vol] 31.3 g/dL Normal 29.9-35.2 [facility] Comment on above: Performed By: #### C VDTBH #### [facility] [address] [place] [address] Dr. Sruthi Arechiga MCV (RBC) [Entitic vol] 84.9 fL Normal 81.0-99.0 [facility] Comment on above: Performed By: #### C VDTBH #### [facility] [address] [place] [address] Dr. Sruthi Arechiga MONO # 1.1 103/ul Critically high 0.3-0.8 [facility] Comment on above: Performed By: #### C VDTBH #### [facility] [address] [place] [address] Dr. Sruthi Arechiga Monocytes/100 WBC (Bld) 11.7 % Normal 1.7-12.0 [facility] Comment on above: Performed By: #### C VDTBH #### [facility] [address] [place] [address] Dr. Sruthi Arechiga NEUT # 5.8 103/ul Normal 1.4-6.5 [facility] Comment on above: Performed By: #### C VDTBH #### [facility] [address] [place] [address] Dr. Sruthi Arechiga Neutrophils/100 WBC (Bld) 60.5 % Normal 43.0-75.0 [facility] Comment on above: Performed By: #### C VDTBH #### [facility] [address] [place] [address] Dr. Sruthi Arechiga Platelet mean volume (Bld) [Entitic vol] 11.8 fL Normal 9.5-13.5 [facility] Comment on above: Performed By: #### C VDTBH #### [facility] [address] [place] [address] Dr. Sruthi Arechiga PLT 198 103/ul Normal 150-450 [facility] Comment on above: Performed By: #### C VDTBH #### [facility] [address] [place] [address] Dr. Sruthi Arechiga RBC 3.77 106/ul Critically low 4.20-5.40 [facility] Comment on above: Performed By: #### C VDTBH #### [facility] [address] [place] [address] Dr. Sruthi Arechiga WBC 9.7 103/ul Normal 4.0-11.0 [facility] Comment on above: Performed By: #### C VDTBH #### [facility] [address] [place] [address] Dr. Sruthi Arechiga CULTURE URINEon 07-06-2022 CULTURE [...] F Trimethoprim/Sulfameth oxazole <=20 S F Normal [facility] Comment on above: Performed By: #### U RCX ####[facility] Hkxf[address]ub[address]v61[address] [place], [place] [address]Dy. Sruthi Arechiga IRON AND TIBCon 07-06-2022 % SATURATION 9.3 % Normal [facility] Comment on above: Performed By: #### F ETIBC, B12FOL ####[facility] Aafadvktbg6[address] [place], [place] [address]Oe. Sruthi Arechiga Iron [Mass/Vol] 33.0 ug/dL Critically low 50.0-170.0 [facility] Comment on above: Performed By: #### F ETIBC, B12FOL ####[facility] Yphkpopniv[address] [place] [phone]. Sruthi Arechiga TIBC DIRECT 356.0 ug/dL Normal 250.0-450.0 [facility] Comment on above: Performed By: #### F ETIBC, B12FOL ####[facility] Qxiyfijlac[address] [place] [id number]. Sruthi Arechiga OCC BLD IMMUNO SCREENon 06-11 OCCULT BLOOD Negative Normal NEGATIVE [facility] Comment on above: Performed By: #### O BSCRN #### [facility] [address] [address] [address] Sruthi Arechiga POINT OF CARE GLUCOSEon 06-11 Glucose [Mass/Vol] 203 mg/dL Critically high -[address] [place] [address] Comment on above: Performed By: #### C BC #### [facility] [address] [address] [address] Sruthi Arechiga Glucose [Mass/Vol] 299 mg/dL Critically high [address] [place] [address] Comment on above: Performed By: #### C VDTBH #### [facility] [address] [place] [address] [address] Sruthi Arechiga Glucose [Mass/Vol] 412 mg/dL Critically high [address] [place] [address] Comment on above: Performed By: #### C BC #### [facility] [address] [place], [place] [address] Dr. Sruthi Arechiga PROF CHEM 8 (BAS METB)on Anion gap [Moles/Vol] 11.0 mmol/L Normal [facility] Comment on above: Performed By: #### B MP ####[facility] [address]ed[address]lydja[address] [place] [phone] Arechiga Calcium [Mass/Vol] 9.0 mg/dL Normal 8.5-10.1 [facility] Comment on above: Performed By: #### B MP ####[facility] Ialrflfgrx65[address] [place] [phone]. Sruthi Arechiga Chloride [Moles/Vol] 100 mmol/L Normal 98-107 [facility] Comment on above: Performed By: #### B MP ####[facility] Nwvmnbddrj6[address] [place] [address]Dr. Sruthi Arechiga CO2 [Moles/Vol] 28.5 mmol/L Normal 21.0-32.0 [facility] Comment on above: Performed By: #### B MP ####[facility] Sscebhqbki8188 [place] [phone] Arechiga Creatinine [Mass/Vol] 0.98 mg/dL Normal 0.55-1.02 [facility] Comment on above: Performed By: #### B MP ####[facility] Enfbvwmnsy8117 [place] [phone] Arechiga EGFR-AF POLISH >60 Normal >=60 [facility] Comment on above: Performed By: #### B MP ####[facility] Jkmwpopqlb7350 [place] [phone] Arechiga EGFR-NON AF POLISH 56 mL/min/1.73m2 Critically low >=60 [facility] Comment on above: Performed By: #### B MP ####[facility] Cxfbrbcwhu3524 [place] [phone] Arechiga Glucose [Mass/Vol] 139 mg/dL Critically high 74-106 [facility] Comment on above: Performed By: #### B MP ####[facility] Gjdmmcrtdk5276 [place] [address]Dr. Sruthi Arechiga Potassium [Moles/Vol] 4.5 mmol/L Normal 3.5-5.1 [facility] Comment on above: Performed By: #### B MP ####[facility] Gnqaauauea[address] [place] [address]Dr. Sruthi Arechiga Sodium [Moles/Vol] 135 mmol/L Critically low 136-145 [facility] Comment on above: Performed By: #### B MP ####[facility] Gz[address]ukabvs[address] [place] [address]Dr. Sruthi Arechiga Urea nitrogen [Mass/Vol] 25.0 mg/dL Critically high 7.0-18.0 [facility] Comment on above: Performed By: #### B MP ####[facility] Veplttpvgn[address] [place], [place] [address]Dr. Sruthi Arechiga Urea nitrogen/Creatinine [Mass ratio] 25.5 mg/mg Normal [facility] Comment on above: Performed By: #### B MP ####[facility] Ejldtdfjef[address] [place], [place] [address]Dr. Sruthi Arechiga VIT B12 AND FOLATEon 022 Cobalamin (Vitamin B12) [Mass/Vol] 653.0 pg/mL Normal 193.0-986.0 [facility] Comment on above: Performed By: #### F ETIBC, B12FOL ####[facility] Hrphhogpvv24[address] [place] [address]Dr. Sruthi Arechiga FOLATE 17.90 ng/mL Normal 8.60-58.90 [facility] Comment on above: Performed By: #### F ETIBC, B12FOL ####[facility] Jsatcjtswf[address] [place], [place] [address]Dr. Sruthi Arechiga XR CHEST 2 Von 07-06-2022 [...] GORDON VALENZUELA Date: 2022-07-06 08:43 Normal [facility] CBC AUTO DIFFon 07-05-2022 BASO # 0.0 103/ul Normal 0.0-0.1 [facility] Comment on above: Performed By: #### C BC ####[facility] Saeejvrsgf[address] [place] [address]Dr. Sruthi Arechiga Basophils/100 WBC (Bld) 0.4 % Normal 0.2-2.0 [facility] Comment on above: Performed By: #### C BC ####[facility] Ilpuzcbzwl[address] [place], [place] [address]Dr. Sruthi Arechiga EO # 0.2 103/ul Normal 0.0-0.7 [facility] Comment on above: Performed By: #### C BC ####[facility] Daagznsigf[address] [place], [place] [address]Dr. Sruthi Arechiga Eosinophils/100 WBC (Bld) 2.6 % Normal 0.9-7.0 [facility] Comment on above: Performed By: #### C BC ####[facility] Qebdrahmdf[address] [place], [place] [address]Dr. Sruthi Arechiga Erythrocyte distribution width (RBC) [Ratio] 13.3 % Normal 11.0-15.0 [facility] Comment on above: Performed By: #### C BC ####[facility] Izjnovixdf[address] [place], [place] [address]Dr. Sruthi Arechiga Hematocrit (Bld) [Volume fraction] 31.3 % Critically low 36.0-48.0 [facility] Comment on above: Performed By: #### C BC ####[facility] Xodlvzeakq317[address] [place], [place] [address]Dr. Sruthi Arechiga Hemoglobin (Bld) [Mass/Vol] 9.9 g/dL Critically low 12.0-16.0 [facility] Comment on above: Performed By: #### C BC ####[facility] Xlnqzzizwf4[address] [place] [address]DrIndu Arechiga IG # 0.07 10e3/ul Critically high 0.00-0.03 [facility] Comment on above: Performed By: #### C BC ####[facility] Vskqkxhihx24[address] [place] [address]DrIndu Arechiga IG % 0.8 % Critically high 0.0-0.5 [facility] Comment on above: Performed By: #### C BC ####[facility] Rpqyjcwwgd[address] [place], [place] [address]DrIndu Arechiga LYMPH # 2.1 103/ul Normal 1.2-3.8 [facility] Comment on above: Performed By: #### C BC ####[facility] Kvypzwgecd[address] [place], [place] [address]DrIndu Arechiga Lymphocytes/100 WBC (Bld) 22.5 % Normal 20.5-60.0 [facility] Comment on above: Performed By: #### C BC ####[facility] Ahrawkyaux[address] [place], [place] [address]DrIndu Arechiga MANUAL DIFF REQ NO Normal [facility] Comment on above: Performed By: #### C BC ####[facility] Taehoofijb[address] [place] [address]DrIndu Arechiga MCH (RBC) [Entitic mass] 27.0 pg Normal 26.7-34.0 [facility] Comment on above: Performed By: #### C BC ####[facility] Giixufojku[address] [place], [place] [address]DrIndu Arechiga MCHC (RBC) [Mass/Vol] 31.6 g/dL Normal 29.9-35.2 [facility] Comment on above: Performed By: #### C BC ####[facility] Ynfjouvmzy[address] [place], [place] [address]DrIndu Arechiga MCV (RBC) [Entitic vol] 85.3 fL Normal 81.0-99.0 [facility] Comment on above: Performed By: #### C BC ####[facility] Sxygiwsude[address] [place] [address]DrIndu Sruthi Arechiga MONO # 1.2 103/ul Critically high 0.3-0.8 [facility] Comment on above: Performed By: #### C BC ####[facility] Bpzrfxouki[address] [place] [address]DrIndu Kamalasven Arechiga Monocytes/100 WBC (Bld) 12.9 % Critically high 1.7-12.0 [facility] Comment on above: Performed By: #### C BC ####[facility] Omlzsuvdem[address] [place], [place] [address]Dr. Sruthi Arechiga NEUT # 5.7 103/ul Normal 1.4-6.5 [facility] Comment on above: Performed By: #### C BC ####[facility] Aemyfrmjxg[address] [place], [place] [address]Dr. Sruthi Arechiga Neutrophils/100 WBC (Bld) 60.8 % Normal 43.0-75.0 [facility] Comment on above: Performed By: #### C BC ####[facility] Xjwauuqwsm[address] [place], [place] [address]DrIndu Sruthi Hawk Platelet mean volume (Bld) [Entitic vol] 11.2 fL Normal 9.5-13.5 [facility] Comment on above: Performed By: #### C BC ####[facility] Rwgfuruqoz[address] [place], [place] [address]Dr. Kamalasven Hawk PLT 213 103/ul Normal 150-450 [facility] Comment on above: Performed By: #### C BC ####[facility] Qcmoddammv[address] [place], [place] [address]DrIndu Arechiga RBC 3.67 106/ul Critically low 4.20-5.40 [facility] Comment on above: Performed By: #### C BC ####[facility] Zdejmkkjqj[address] [place], [place] [address]DrIndu Arechiga WBC 9.3 103/ul Normal 4.0-11.0 [facility] Comment on above: Performed By: #### C BC ####[facility] Pcmpebentc[address] [place] [id number]. Sruthi Arechiga POINT OF CARE GLUCOSEon 06-11 Glucose [Mass/Vol] 164 mg/dL Critically high 74-106 [facility] Comment on above: Performed By: #### C VDTBH #### [facility] [address] [address] [address] Sruthi Arechiga Glucose [Mass/Vol] 303 mg/dL Critically high 74-106 [facility] Comment on above: Performed By: #### P OCGLUC #### [facility] [address] [address] [address] Sruthi Arechiga Glucose [Mass/Vol] 278 mg/dL Critically high -106 [facility] Comment on above: Performed By: #### C VDTBH #### [facility] [address] [address] [address] Sruthi Arechiga PROF CHEM 8 (BAS METB)on Anion gap [Moles/Vol] 9.9 mmol/L Normal [facility] Comment on above: Performed By: #### B MP ####[facility] [address]jepqkeg[address] [place] [address]DrIndu Arechiga Calcium [Mass/Vol] 8.7 mg/dL Normal 8.5-10.1 [facility] Comment on above: Performed By: #### B MP ####[facility] [address]awpimbpys[address] [place] [address]DrIndu Arechiga Chloride [Moles/Vol] 100 mmol/L Normal 98-107 [facility] Comment on above: Performed By: #### B MP ####[facility] Zoulbcqpnt[address] [place] [address]DrIndu Arechiga CO2 [Moles/Vol] 28.4 mmol/L Normal 21.0-32.0 [facility] [place] [facility] Comment on above: Performed By: #### B MP ####[facility] [address]dlqvhtutw[address] [place] [address]Dr. Sruthi Arechiga Creatinine [Mass/Vol] 0.99 mg/dL Normal 0.55-1.02 [facility] Comment on above: Performed By: #### B MP ####[facility] Aejsvfvwzf5208 [place] [address]Dr. Sruthi Arechiga EGFR-AF POLISH >60 Normal >=60 [facility] Comment on above: Performed By: #### B MP ####[facility] [address] [place], [place] [address]Dr. Sruthi Arechiga EGFR-NON AF POLISH 56 mL/min/1.73m2 Critically low >=60 [facility] Comment on above: Performed By: #### B MP ####[facility] Og[address] [place], [place] [address]Dr. Sruthi Arechiga Glucose [Mass/Vol] 174 mg/dL Critically high 74-106 T [facility] Comment on above: Performed By: #### B MP ####[facility] Hgdbmim[address] [place], [place] [address]Dr. Sruthi Arechiga Potassium [Moles/Vol] 4.3 mmol/L Normal 3.5-5.1 [facility] Comment on above: Performed By: #### B MP ####[facility] O[address] [place], [place] [address]Dr. Sruthi Arechiga Sodium [Moles/Vol] 134 mmol/L Critically low 136-145 Th [facility] Comment on above: Performed By: #### B MP ####[facility] H[address] [place], [place] [address]Dr. Sruthi Arechiga Urea nitrogen [Mass/Vol] 22.0 mg/dL Critically high 7.0-18.0 [facility] Comment on above: Performed By: #### B MP ####[facility] [address] [place], [place] [address]Dr. Sruthi Arechiga Urea nitrogen/Creatinine [Mass ratio] 22.2 mg/mg Normal [facility] Comment on above: Performed By: #### B MP ####[facility] M[address] [place], [place] [address]Dr. Sruthi Arechiga BNPon 07-04-2022 Natriuretic peptide B (Bld) [Mass/Vol] 1822.0 pg/mL Critically high <=900.0 [facility] Comment on above: Performed By: #### C BC #### [facility] [address] [place] [address] Dr. Sruthi Arechiga CBC AUTO DIFFon 07-04-2022 BASO # 0.0 103/ul Normal 0.0-0.1 [facility] Comment on above: Performed By: #### C BC #### [facility] [address] [place] [address] Dr. Sruthi Arechiga Basophils/100 WBC (Bld) 0.4 % Normal 0.2-2.0 [facility] Comment on above: Performed By: #### C BC #### [facility] [address] [place] [address] Dr. Sruthi Arechiga EO # 0.2 103/ul Normal 0.0-0.7 [facility] Comment on above: Performed By: #### C BC #### [facility] [address] [place] [address] Dr. Sruthi Arechiga Eosinophils/100 WBC (Bld) 2.4 % Normal 0.9-7.0 [facility] Comment on above: Performed By: #### C BC #### [facility] [address] [place] [address] Dr. Sruthi Arechiga Erythrocyte distribution width (RBC) [Ratio] 13.5 % Normal 11.0-15.0 [facility] Comment on above: Performed By: #### C BC #### [facility] [address] [place] [address] Dr. Sruthi Arechiga Hematocrit (Bld) [Volume fraction] 36.4 % Normal 36.0-48.0 [facility] Comment on above: Performed By: #### C BC #### [facility] [address] [place] [address] Dr. Sruthi Arechiga Hemoglobin (Bld) [Mass/Vol] 11.6 g/dL Critically low 12.0-16.0 [facility] Comment on above: Performed By: #### C BC #### [facility] [address] [place] [address] [address] Sruthi Arechiga IG # 0.11 10e3/ul Critically high 0.00-0.03 [facility] Comment on above: Performed By: #### C BC #### [facility] [address] [place] [address] [address] Sruthi Arechiga IG % 1.2 % Critically high 0.0-0.5 [facility] Comment on above: Performed By: #### C BC #### [facility] [address] [place] [address] [address] Sruthi Arechiga LYMPH # 1.7 103/ul Normal 1.2-3.8 [facility] Comment on above: Performed By: #### C BC #### [facility] [address] [place] [address] Dr. Sruthi Arechiga Lymphocytes/100 WBC (Bld) 19.0 % Critically low 20.5-60.0 [facility] Comment on above: Performed By: #### C BC #### [facility] [address] [place] [address] Dr. Sruthi Arechiga MANUAL DIFF REQ NO Normal [facility] Comment on above: Performed By: #### C BC #### [facility] [address] [place] [address] Dr. Sruthi Arechiga MCH (RBC) [Entitic mass] 27.3 pg Normal 26.7-34.0 [facility] Comment on above: Performed By: #### C BC #### [facility] [address] [place] [address] Dr. Sruthi Arechiga MCHC (RBC) [Mass/Vol] 31.9 g/dL Normal 29.9-35.2 [facility] Comment on above: Performed By: #### C BC #### [facility] [address] [place] [address] Dr. Sruthi Arechiga MCV (RBC) [Entitic vol] 85.6 fL Normal 81.0-99.0 [facility] Comment on above: Performed By: #### C BC #### [facility] [address] [place] [address] Dr. Sruthi Arechiga MONO # 1.1 103/ul Critically high 0.3-0.8 [facility] Comment on above: Performed By: #### C BC #### [facility] [address] [place] [address] Dr. Sruthi Arechiga Monocytes/100 WBC (Bld) 11.9 % Normal 1.7-12.0 [facility] Comment on above: Performed By: #### C BC #### [facility] [address] [place] [address] Dr. Sruthi Arechiga NEUT # 6.0 103/ul Normal 1.4-6.5 [facility] Comment on above: Performed By: #### C BC #### [facility] [address] [place] [address] Dr. Sruthi Arechiga Neutrophils/100 WBC (Bld) 65.1 % Normal 43.0-75.0 [facility] Comment on above: Performed By: #### C BC #### [facility] [address] [place] [address] Dr. Sruthi Arechiga Platelet mean volume (Bld) [Entitic vol] 10.7 fL Normal 9.5-13.5 [facility] Comment on above: Performed By: #### C BC #### [facility] [address] [place] [address] Dr. Sruthi Arechiga PLT 264 103/ul Normal 150-450 [facility] Comment on above: Performed By: #### C BC #### [facility] [address] [place] [address] Dr. Sruthi Arechiga RBC 4.25 106/ul Normal 4.20-5.40 [facility] Comment on above: Performed By: #### C BC #### [facility] [address] [place] [address] Dr. Sruthi Arechiga WBC 9.2 103/ul Normal 4.0-11.0 [facility] Comment on above: Performed By: #### C BC #### [facility] [address] [place] [address] Dr. Sruthi Arechiga Covid-19 PCR (CVDTB)on 06-11 SARS-CoV-2 (COVID-19) RNA KOLE+probe Ql (Unsp spec) Not detected Normal NOT DETECTED [facility] Comment on above: Result Comment: When diagnostic [...] for this test is supported by the [place] of Health and Human Service's declaration that [...] be used). Performed By: #### C VDTB ####[facility] [address] [place] [address]Dr. Sruthi Arechiga ER URINE PROFILEon Bilirubin Ql (U) Negative Normal NEGATIVE [facility] [place] [facility] Comment on above: Performed By: #### C VDTBH #### [facility] [address] [place] [address] Dr. Sruthi Arechiga Clarity (U) CLEAR Normal CLEAR [facility] Comment on above: Performed By: #### C VDTBH #### [facility] [address] [place] [address] Dr. Sruthi Arechiga Color (U) LT. YELLOW Normal YELLOW [facility] Comment on above: Performed By: #### C VDTBH #### [facility] [address] [place] [address] Dr. Sruthi Arechiga ERUJIHAND A micrscopic examination will be performed if indicated. Normal [facility] Comment on above: Performed By: #### C VDTBH #### [facility] [address] [place] [address] Dr. Sruthi Arechiga Glucose Ql (U) >1000 Abnormal NEGATIVE [facility] Comment on above: Performed By: #### C VDTBH #### [facility] [address] [place] [address] Dr. Sruthi Arechiga Hemoglobin Ql (U) Negative Normal NEGATIVE [facility] Comment on above: Performed By: #### C VDTBH #### [facility] [address] [place] [address] Dr. Sruthi Arechiga Ketones Ql (U) Negative Normal NEGATIVE [facility] Comment on above: Performed By: #### C VDTBH #### [facility] [address] [place] [address] Dr. Sruthi Arechiga LEUKOCYTES SMALL Abnormal NEGATIVE [facility] Comment on above: Performed By: #### C VDTBH #### [facility] [address] [place] [address] Dr. Sruthi Arechiga Nitrite Ql (U) Negative Normal NEGATIVE [facility] Comment on above: Performed By: #### C VDTBH #### [facility] [address] [place] [address] Dr. Sruthi Arechiga pH (U) 6.0 [pH] Normal 5-9 [facility] Comment on above: Performed By: #### C VDTBH #### [facility] [address] [place] [address] Dr. Sruthi Arechiga SPEC GRAVITY <=1.005 Abnormal 1.005-<=1.02 5 [facility] Comment on above: Performed By: #### C VDTBH #### [facility] [address] [place] [address] Dr. Sruthi Arechiga UA PROTEIN Negative Normal NEGATIVE/ TRACE [facility] Comment on above: Performed By: #### C VDTBH #### [facility] [address] [place] [address] Dr. Sruthi Arechiga UR MICRO IND INDICATED Normal [facility] Comment on above: Performed By: #### C VDTBH #### [facility] [address] [place] [address] Dr. Sruthi Arechiga Urobilinogen Qn (U) 0.2 {Willow'U}/dL Normal 0.2 - 1. 0 [facility] Comment on above: Performed By: #### C VDTBH #### [facility] [address] [place] [address] [address] Sruthi Arechiga POINT OF CARE GLUCOSEon 06-11 Glucose [Mass/Vol] 262 mg/dL Critically high 74-106 T [facility] Comment on above: Performed By: #### P OCGLUC ####[facility] [address] [place] [address]Dr. Sruthi Arechiga PROF CHEM 8 (BAS METB)on Anion gap [Moles/Vol] 13.0 mmol/L Normal [facility] Comment on above: Performed By: #### C BC #### [facility] [address] [place] [address] [address] Sruthi Arechiga Calcium [Mass/Vol] 9.3 mg/dL Normal 8.5-10.1 [facility] Comment on above: Performed By: #### C BC #### [facility] [address] [place] [address] [address] Sruthi Arechiga Chloride [Moles/Vol] 99 mmol/L Normal 98-107 [facility] Comment on above: Performed By: #### C BC #### [facility] [address] [place] [address] [address] Sruthi Arechiga CO2 [Moles/Vol] 26.3 mmol/L Normal 21.0-32.0 [facility] Comment on above: Performed By: #### C BC #### [facility] [address] [place] [address] [address] Sruthi Arechgia Creatinine [Mass/Vol] 0.95 mg/dL Normal 0.55-1.02 [facility] Comment on above: Performed By: #### C BC #### [facility] [address] [place] [address] [address] Sruthi Arechiga EGFR-AF POLISH >60 Normal >=60 [facility] Comment on above: Performed By: #### C BC #### [facility] [address] [place] [address] [address] Sruthi Arechiga EGFR-NON AF POLISH 58 mL/min/1.73m2 Critically low >=60 [facility] Comment on above: Performed By: #### C BC #### [facility] [address] [place] [address] [address] Sruthi Arechiga Glucose [Mass/Vol] 331 mg/dL Critically high 74-106 T [facility] Comment on above: Performed By: #### C BC #### [facility] [address] [place] [address] [address] Sruthi Arechiga Potassium [Moles/Vol] 4.3 mmol/L Normal 3.5-5.1 [facility] Comment on above: Performed By: #### C BC #### [facility] [address] [place] [address] [address] Sruthi Arechiga Sodium [Moles/Vol] 134 mmol/L Critically low 136-145 Th [facility] Comment on above: Performed By: #### C BC #### [facility] [address] [place] [address] [address] Sruthi Arechiga Urea nitrogen [Mass/Vol] 20.0 mg/dL Critically high 7.0-18.0 [facility] Comment on above: Performed By: #### C BC #### [facility] [address] [place] [address] [address] Sruthi Arechiga Urea nitrogen/Creatinine [Mass ratio] 21.1 mg/mg Normal [facility] Comment on above: Performed By: #### C BC #### [facility] [address] [place] [address] [address] Sruthi Arechiga TROPONIN, HIGH SENSITIVITYon 07-04-2022 HSTROP 113.1 pg/mL Critically high 4.0-51.3 [facility] Comment on above: Result Comment: CUT- OFF POINTS HAVE BEEN ESTABLISHED BASED ON THE FOURTH UNIVERSAL DEFINITIONS OF MYOCARDIAL INFARCTION. THE UPPER REFERENCE LIMIT (URL) OF TROPONIN, DEFINED THE 99TH PERCENTILE OF cTnI DISTRIBUTION IN A REFERENCE POPULATION, HAS BEEN CONFIRMED THE DECISION THRESHOLD FOR PA DIAGNOSIS. Performed By: #### C BC #### [facility] [address] [place] [address] Dr. Sruthi Arechiga HSTROP 126.6 pg/mL Critically high 4.0-51.3 [facility] [place] [facility] Comment on above: Result Comment: CUT- OFF POINTS HAVE BEEN ESTABLISHED BASED ON THE FOURTH UNIVERSAL DEFINITIONS OF MYOCARDIAL INFARCTION. THE UPPER REFERENCE LIMIT (URL) OF TROPONIN, DEFINED THE 99TH PERCENTILE OF cTnI DISTRIBUTION IN A REFERENCE POPULATION, HAS BEEN CONFIRMED THE DECISION THRESHOLD FOR PA DIAGNOSIS. Performed By: #### C VDTBH #### [facility] [address] [place] [address] Dr. Sruthi Arechiga URINE MICROSCOPIC ONLYon BACTERIA LARGE Abnormal NONE SEEN [facility] Comment on above: Performed By: #### C VDTBH #### [facility] [address] [place] [address] Dr. Sruthi Arechiga Bacteria identified Cx Nom (U) INDICATED Normal [facility] Comment on above: Performed By: #### C VDTBH #### [facility] [address] [place] [address] Dr. Sruthi Arechiga CAST NONE SEEN Normal NONE SEEN [facility] Comment on above: Performed By: #### C VDTBH #### [facility] [address] [place] [address] Dr. Sruthi Arechiga Crystals LM Nom (Urine sed) NONE SEEN Normal NONE SEEN [facility] Comment on above: Performed By: #### C VDTBH #### [facility] [address] [place] [address] Dr. Sruthi Arechiga Epithelial cells LM Ql (Urine sed) FEW Abnormal NONE SEEN /RARE [facility] Comment on above: Performed By: #### C VDTBH #### [facility] [address] [place] [address] Dr. Sruthi Arechiga MUCOUS NONE SEEN Normal NONE SEEN [facility] Comment on above: Performed By: #### C VDTBH #### [facility] [address] [place] [address] Dr. Sruthi Arechiga RBC NONE SEEN Abnormal 0-2 [facility] Comment on above: Performed By: #### C VDTBH #### [facility] [address] [place], [place] [address] Dr. Sruthi Arechiga WBC 10-20 Abnormal NONE SEEN [facility] Comment on above: Performed By: #### C VDTBH #### [facility] [address] [place], [place] [address] Dr. Sruthi Arechiga XR CHEST 1 Von [...] GERMAIN COY Date: 2022-07-04 11:53 Normal [facility] CBC COMPLETE BLOOD COUNTon 0 07-03-2022 Erythrocyte distribution width (RBC) [Ratio] 13.4 % Normal 11.5-15.0 The [facility] Comment on above: Order Comment: No: D o not add to previous draw Performed By: #### 8 [id number] #### [facility] [address] [facility]. [address] Hematocrit (Bld) [Volume fraction] 33.6 % Low 36.0-45.0 [facility] Comment on above: Order Comment: No: D o not add to previous draw Performed By: #### 8 [id number] #### [facility] [address] [facility] [place] [address], [facility] Hemoglobin (Bld) [Mass/Vol] 10.6 g/dL Low 12.0-15.0 [facility] Comment on above: Order Comment: No: D o not add to previous draw Performed By: #### 8 [id number] #### [facility] [address] [facility] [place] [place] [address], [facility] MCH (RBC) [Entitic mass] 26.6 pg Low 27.0-33.0 [facility] Comment on above: Order Comment: No: D o not add to previous draw Performed By: #### 8 [id number] #### [facility] [address] [place] [address], [facility] MCHC (RBC) [Mass/Vol] 31.5 g/dL Low 32.0-35.0 [facility] Comment on above: Order Comment: No: D o not add to previous draw Performed By: #### 8 [id number] #### [facility] [address] [place] [address], [facility] MCV (RBC) [Entitic vol] 84.4 fL Normal 82.0-98.0 [facility] Comment on above: Order Comment: No: D o not add to previous draw Performed By: #### 8 [id number] #### [facility] [address] [facility] [place] [place] [address], [facility] Nucleated RBC/100 WBC (Bld) [Ratio] 0 % Normal 0-0 [facility] Comment on above: Order Comment: No: D o not add to previous draw Performed By: #### 8 [id number] #### [facility] [address] [facility]. [place] [id number], [facility] PLAT CNT 247 10*3/uL Normal 150-400 [facility] Comment on above: Order Comment: No: D o not add to previous draw Performed By: #### 8 [id number] #### [facility] [address] [facility] [place] [address], [facility] RBC (Bld) [#/Vol] 3.98 10*6/uL Normal 3.80-5.00 [facility] Comment on above: Order Comment: No: D o not add to previous draw Performed By: #### 8 [id number] #### [facility] [address] [facility] [place] [id number], [facility] WBC (Bld) [#/Vol] 10.25 10*3/uL Normal 4.00-10.60 [facility] Comment on above: Order Comment: No: D o not add to previous draw Performed By: #### 8 [id number] #### [facility] [address] [place] [address], [facility] POC GLUCOSE LABon 07-03-2022 Glucose [Mass/Vol] 204 mg/dL High 70-100 [facility] Comment on above: Performed By: #### 1 0070, [id number], [id number] #### [facility] [address] [place] [address], [facility] Glucose [Mass/Vol] 135 mg/dL High 70-100 [facility] Comment on above: Performed By: #### 8 [id number] #### [facility] [address] UFH HEPARIN ASSAYon 07-03-20 22 UNFRACTIONATED HEPARIN <0.10 Critically low 0.30-0.70 [facility] Comment on above: Result Comment: Resu lt checked and called. Accurately read back by Chanda @[facility] Rivaroxaban and Apixaban will interfere with the anti Xa assay used to monitor UFH and LMWH. Performed By: #### 3 [id number] #### [facility] [address] [place] [address], [facility] BASIC METABOLIC PANELon 06-11 Calcium [Mass/Vol] 8.8 mg/dL Normal 8.6-10.3 [facility] Comment on above: Order Comment: No: D o not add to previous draw Performed By: #### 8 [id number] #### [facility] [address] [place] [address], [facility] Chloride [Moles/Vol] 104 mmol/L Normal 98-107 [facility] Comment on above: Order Comment: No: D o not add to previous draw Performed By: #### 8 [id number] #### [facility] [address] [place] [address], [facility] CO2 [Moles/Vol] 26 mmol/L Normal 21-31 [facility] Comment on above: Order Comment: No: D o not add to previous draw Performed By: #### 8 [id number] #### [facility] [address] [place] [address], [place] Creatinine [Mass/Vol] 0.62 mg/dL Normal 0.60-1.20 [facility] Comment on above: Order Comment: No: D o not add to previous draw Performed By: #### 8 [id number] #### [facility] [address] [place] [address], [facility] GFR/1.73 sq M.predicted among non-blacks MDRD (S/P/Bld) [Vol rate/Area] mL/min/{1.73_m2} Normal >60 [facility] Comment on above: Order Comment: No: D o not add to previous draw Result Comment: The [facility]'s estimated glomerular filtration rate (eGFR) will no [...] individuals. Performed By: #### 8 [id number] #### [facility] [address] [place] [address], [place] Glucose [Mass/Vol] 212 mg/dL High 70-100 [facility] Comment on above: Order Comment: No: D o not add to previous draw Performed By: #### 8 [id number] #### [facility] [address] [place] [address], [place] Potassium [Moles/Vol] 3.8 mmol/L Normal 3.5-5.1 [facility] Comment on above: Order Comment: No: D o not add to previous draw Performed By: #### 8 [id number] #### [facility] [address] Sodium [Moles/Vol] 134 mmol/L Low 136-145 [facility] Comment on above: Order Comment: No: D o not add to previous draw Performed By: #### 8 [id number] #### [facility] [address] Urea nitrogen [Mass/Vol] 15 mg/dL Normal 7-25 [facility] Comment on above: Order Comment: No: D o not add to previous draw Performed By: #### 8 [id number] #### [facility] [address] CBC W/DIFFon 07-02-2022 ABS IMM GRANS 0.1 10*3/uL Normal 0.0-0.2 [facility] Comment on above: Order Comment: No: D o not add to previous draw Performed By: #### 8 [id number] #### [facility] [address] ABS NEUTROPHILS 6.3 10*3/uL Normal 1.6-7.6 [facility] Comment on above: Order Comment: No: D o not add to previous draw Performed By: #### 8 [id number] #### [facility] [address] [facility]. [address] Basophils (Bld) [#/Vol] 0.0 10*3/uL Normal 0.0-0.2 [facility] Comment on above: Order Comment: No: D o not add to previous draw Performed By: #### 8 [id number] #### [facility] [address] [place] [address], [facility] Basophils/100 WBC (Bld) 0.3 % Normal 0.0-1.0 [facility] Comment on above: Order Comment: No: D o not add to previous draw Performed By: #### 8 [id number] #### [facility] [address] [place] [address], [facility] Eosinophils (Bld) [#/Vol] 0.2 10*3/uL Normal 0.0-0.5 [facility] Comment on above: Order Comment: No: D o not add to previous draw Performed By: #### 8 [id number] #### [facility] [address] [place] [address], [facility] Eosinophils/100 WBC (Bld) 2.3 % Normal 0.0-6.0 [facility] Comment on above: Order Comment: No: D o not add to previous draw Performed By: #### 8 [id number] #### [facility] [address] [place] [address], [facility] Erythrocyte distribution width (RBC) [Ratio] 13.5 % Normal 11.5-15.0 [facility] Comment on above: Order Comment: No: D o not add to previous draw Performed By: #### 8 [id number] #### [facility] [address] [place] [address], [facility] Hematocrit (Bld) [Volume fraction] 31.3 % Low 36.0-45.0 [facility] Comment on above: Order Comment: No: D o not add to previous draw Performed By: #### 8 [id number] #### [facility] [address] [place] [address], [facility] Hemoglobin (Bld) [Mass/Vol] 10.2 g/dL Low 12.0-15.0 [facility] Comment on above: Order Comment: No: D o not add to previous draw Performed By: #### 8 [id number] #### [facility] [address] [place] [address], [facility] IMMATURE GRANS 0.8 % Normal 0.0-1.0 [facility] Comment on above: Order Comment: No: D o not add to previous draw Performed By: #### 8 5499 #### [facility] [address] [place] [address], [facility] Lymphocytes (Bld) [#/Vol] 1.9 10*3/uL Normal 1.2-4.0 [facility] Comment on above: Order Comment: No: D o not add to previous draw Performed By: #### 8 5499 #### [facility] [address] [place] [address], [facility] Lymphocytes/100 WBC (Bld) 19.4 % Low 20.0-45.0 [facility] Comment on above: Order Comment: No: D o not add to previous draw Performed By: #### 8 [id number] #### [facility] [address] [place] [address], [facility] MCH (RBC) [Entitic mass] 27.5 pg Normal 27.0-33.0 [facility] Comment on above: Order Comment: No: D o not add to previous draw Performed By: #### 8 5499 #### [facility] [address] [place] [id number], [facility] MCHC (RBC) [Mass/Vol] 32.6 g/dL Normal 32.0-35.0 [facility] Comment on above: Order Comment: No: D o not add to previous draw Performed By: #### 8 5499 #### [facility] [address] [facility] [address], [facility] MCV (RBC) [Entitic vol] 84.4 fL Normal 82.0-98.0 [facility] Comment on above: Order Comment: No: D o not add to previous draw Performed By: #### 8 5499 #### [facility] [address] [place] [id number], [facility] Monocytes (Bld) [#/Vol] 1.3 10*3/uL High 0.1-1.0 [facility] Comment on above: Order Comment: No: D o not add to previous draw Performed By: #### 8 5499 #### [facility] [address] [place] [address], [place] MONOS 13.1 % High 5.0-12.0 [facility] Comment on above: Order Comment: No: D o not add to previous draw Performed By: #### 8 5499 #### [facility] [address] [place] [address], [place] Neutrophils/100 WBC (Bld) 64.1 % Normal 40.0-72.0 [facility] Comment on above: Order Comment: No: D o not add to previous draw Performed By: #### 8 5499 #### [facility] [address] [place] [address], [place] Nucleated RBC/100 WBC (Bld) [Ratio] 0 % Normal 0-0 [facility] Comment on above: Order Comment: No: D o not add to previous draw Performed By: #### 8 5499 #### [facility] [address] [place] [address], [place] PLAT CNT 233 10*3/uL Normal 150-400 [facility] Comment on above: Order Comment: No: D o not add to previous draw Performed By: #### 8 5499 #### [facility] [address] [place] [address], [place] RBC (Bld) [#/Vol] 3.71 10*6/uL Low 3.80-5.00 [facility] Comment on above: Order Comment: No: D o not add to previous draw Performed By: #### 8 5499 #### [facility] [address] [place] [address], [place] WBC (Bld) [#/Vol] 9.85 10*3/uL Normal 4.00-10.60 [facility] Comment on above: Order Comment: No: D o not add to previous draw Performed By: #### 8 5499 #### [address] [place] [address], [facility] CTA ABDOMEN AND PELVISon CTA ABDOMEN AND PELVIS [facility] Department of Radiology [address] [place] [phone] ======== Patient Name: MARIMAR PATEL : 1955 Sex: F Age: Race: White Pt. Location: [id number] Patient Status: D Ordered Date: 07/02/2022 8:20:00 [...] achievable Electronically signed: Yuni Zhu. Transcribed by: [email or web address], User Resident: Electronically Signed by: YUNI ZHU @ 07/12/2022 01:12 PM Normal [facility] Comment on above: Order Comment: No: D o not add to previous draw No collection time noted on specimen or requisition. The collection time recorded is the time of receipt in the lab. CTA CHESTon 07-02-2022 CTA CHEST [facility] Department of Radiology [address] [place] [phone] ======== Patient Name: MARIMAR PATEL : 1955 Sex: F Age: Race: White Pt. Location: [id number] Patient Status: D Ordered Date: 07/02/2022 8:20:00 [...] 3 cusped view, anterior view and no SPECIAL NEEDS CAREGIVER-CAU view are obtained in 3-D volume rendered [...] calcification. Electronically signed: Yuni Zhu. Transcribed by: [email or web address], User Resident: Electronically Signed by: YUNI ZHU @ 07/12/2022 01:06 PM Normal [facility] Comment on above: Order Comment: No: D o not add to previous draw No collection time noted on specimen or requisition. The collection time recorded is the time of receipt in the lab. Cardiovascular Lab Reporton 07-02-2022 Cardiovascular Lab Report [facility] Patient Name: Marimar Patel [facility] Josep MR #: [id number] Department of Physician: Alex Kelly M.D. Division of Service Date: 07/01/2022 Cardiology Birthdate: 1955 Adult Cardiovascular Room #: 4AB [id number] [facility] [address] [facility]. [place] [address] Cardiovascular Laboratory Report CLINICAL PRESENTATION: The patient [...] ultrasound guidance and micropuncture access technique, a 6-Taiwanese sheath was placed in right common femoral [...] exchanges were made over the J-tip guidewire, 6-Taiwanese JL4 was used to engage the left main coronary artery. A 6-Taiwanese JR4 was used to engage the right coronary artery. A 6-Taiwanese JR4 was used to engage the radial bypass graft to the D1 and the SVG to the OM2. The 6-Taiwanese JR4 was also used to engage the [...] Betts M.D. Date Trans: 07/02/2022 10:08 A/abdiaziz [id number] cc: Nik Bell M.D. [address] [place] [address] Normal [facility] MAGNESIUM BLOODon 07-02-2022 Magnesium [Mass/Vol] 1.9 mg/dL Normal 1.9-2.7 [facility] Comment on above: Order Comment: No: D o not add to previous draw Performed By: #### 8 5499 #### [facility] [address] [place] [address], [place] POC GLUCOSE LABon 07-02-2022 Glucose [Mass/Vol] 268 mg/dL High 70-100 [facility] Comment on above: Performed By: #### 8 5499 #### [facility] [address] [place] [address], [place] Glucose [Mass/Vol] 255 mg/dL High 70-100 [facility] Comment on above: Performed By: #### 8 5499 #### [facility] [address] [place] [address], [place] Glucose [Mass/Vol] 173 mg/dL High 70-100 [facility] Comment on above: Performed By: #### 8 5499 #### [facility] [address] [place] [address], [place] Glucose [Mass/Vol] 193 mg/dL High 70-100 [facility] Comment on above: Performed By: #### 1 0070, 77837, 81727 #### [facility] [address] [place] [address], [place] Glucose [Mass/Vol] 185 mg/dL High 70-100 [facility] Comment on above: Performed By: #### 1 0070, 79133, 46611 #### [facility] [address] [place] [address], [facility] UFH HEPARIN ASSAYon 07-02-20 22 UNFRACTIONATED HEPARIN <0.10 Critically low 0.30-0.70 [facility] Comment on above: Result Comment: RESU LTS CHECKED AND CALLED. ACCURATELY READ BACK BY Jessa Schaefer RN at 2200 PMW 07-02-22. Rivaroxaban and Apixaban will interfere with the anti Xa assay used to monitor UFH and LMWH. Performed By: #### 3 5200 #### [facility] [address] [place] [address], [facility] BASIC METABOLIC PANELon 06-11 Calcium [Mass/Vol] 8.5 mg/dL Low 8.6-10.3 [facility] Comment on above: Order Comment: No: D o not add to previous draw Performed By: #### 0 0071, 02128 #### [facility] [address] [place] [address], [facility] Chloride [Moles/Vol] 105 mmol/L Normal 98-107 [facility] Comment on above: Order Comment: No: D o not add to previous draw Performed By: #### 0 0071, 10400 #### [facility] [address] [place] [address], [facility] CO2 [Moles/Vol] 22 mmol/L Normal 21-31 [facility] Comment on above: Order Comment: No: D o not add to previous draw Performed By: #### 0 0071, 47155 #### [facility] [address] [place] [address], [facility] Creatinine [Mass/Vol] 0.57 mg/dL Low 0.60-1.20 [facility] Comment on above: Order Comment: No: D o not add to previous draw Performed By: #### 0 0071, 91156 #### [facility] [address] [place] [address], [facility] GFR/1.73 sq M.predicted among non-blacks MDRD (S/P/Bld) [Vol rate/Area] mL/min/{1.73_m2} Normal >60 [facility] Comment on above: Order Comment: No: D o not add to previous draw Result Comment: [facility]'s estimated glomerular filtration rate (eGFR) will no [...] of individuals. Performed By: #### 0 0071, 20771 #### [facility] [address] [place] [address], [facility] Glucose [Mass/Vol] 164 mg/dL High 70-100 [facility] Comment on above: Order Comment: No: D o not add to previous draw Performed By: #### 0 0071, 47038 #### [facility] [address] [place] [address], [facility] Potassium [Moles/Vol] 3.8 mmol/L Normal 3.5-5.1 [facility] Comment on above: Order Comment: No: D o not add to previous draw Performed By: #### 0 0071, 32584 #### [facility] [address] [place] [address], [place] Sodium [Moles/Vol] 137 mmol/L Normal 136-145 [facility] Comment on above: Order Comment: No: D o not add to previous draw Performed By: #### 0 0071, 43339 #### [facility] [address] [place] [address], [place] Urea nitrogen [Mass/Vol] 18 mg/dL Normal 7-25 [facility] Comment on above: Order Comment: No: D o not add to previous draw Performed By: #### 0 0071, 76088 #### [facility] [address] [facility] [place] [address], [facility] CBC W/DIFFon 07-01-2022 ABS IMM GRANS 0.1 10*3/uL Normal 0.0-0.2 [facility] Comment on above: Order Comment: No: D o not add to previous draw Performed By: #### 8 5499 #### [facility] [address] [facility] [address], [facility] ABS NEUTROPHILS 5.1 10*3/uL Normal 1.6-7.6 [facility] Comment on above: Order Comment: No: D o not add to previous draw Performed By: #### 8 5499 #### [facility] [address] [facility] [address], [facility] Basophils (Bld) [#/Vol] 0.1 10*3/uL Normal 0.0-0.2 [facility] Comment on above: Order Comment: No: D o not add to previous draw Performed By: #### 8 5499 #### [facility] [address] [facility] [address], [facility] Basophils/100 WBC (Bld) 0.6 % Normal 0.0-1.0 [facility] Comment on above: Order Comment: No: D o not add to previous draw Performed By: #### 8 5499 #### [facility] [address] [facility] [place] [id number], [facility] Eosinophils (Bld) [#/Vol] 0.3 10*3/uL Normal 0.0-0.5 [facility] Comment on above: Order Comment: No: D o not add to previous draw Performed By: #### 8 5499 #### [facility] [address] [place] [address], [facility] Eosinophils/100 WBC (Bld) 2.8 % Normal 0.0-6.0 [facility] Comment on above: Order Comment: No: D o not add to previous draw Performed By: #### 8 5499 #### [facility] [address] [place] [address], [facility] Erythrocyte distribution width (RBC) [Ratio] 13.3 % Normal 11.5-15.0 [facility] Comment on above: Order Comment: No: D o not add to previous draw Performed By: #### 8 5499 #### [facility] [address] [place] [address], [facility] Hematocrit (Bld) [Volume fraction] 32.6 % Low 36.0-45.0 [facility] Comment on above: Order Comment: No: D o not add to previous draw Performed By: #### 8 5499 #### [facility] [address] [place] [id number], [facility] Hemoglobin (Bld) [Mass/Vol] 10.6 g/dL Low 12.0-15.0 [facility] Comment on above: Order Comment: No: D o not add to previous draw Performed By: #### 8 5499 #### [facility] [address] [place] [address], [facility] IMMATURE GRANS 0.7 % Normal 0.0-1.0 [facility] Comment on above: Order Comment: No: D o not add to previous draw Performed By: #### 8 5499 #### [facility] [address] [place] [id number], [facility] Lymphocytes (Bld) [#/Vol] 2.4 10*3/uL Normal 1.2-4.0 [facility] Comment on above: Order Comment: No: D o not add to previous draw Performed By: #### 8 5499 #### [facility] [address] [place] [id number], [facility] Lymphocytes/100 WBC (Bld) 26.6 % Normal 20.0-45.0 [facility] Comment on above: Order Comment: No: D o not add to previous draw Performed By: #### 8 5499 #### [facility] [address] [place] [address], [facility] MCH (RBC) [Entitic mass] 27.0 pg Normal 27.0-33.0 [facility] Comment on above: Order Comment: No: D o not add to previous draw Performed By: #### 8 5499 #### [facility] [address] [place] [address], [facility] MCHC (RBC) [Mass/Vol] 32.5 g/dL Normal 32.0-35.0 [facility] Comment on above: Order Comment: No: D o not add to previous draw Performed By: #### 8 5499 #### [facility] [address] [facility] [address], [facility] MCV (RBC) [Entitic vol] 83.0 fL Normal 82.0-98.0 [facility] Comment on above: Order Comment: No: D o not add to previous draw Performed By: #### 8 5499 #### [facility] [address] [facility] [address], [facility] Monocytes (Bld) [#/Vol] 1.2 10*3/uL High 0.1-1.0 [facility] Comment on above: Order Comment: No: D o not add to previous draw Performed By: #### 8 5499 #### [facility] [address] [facility] [place] [place] [id number], [facility] MONOS 13.0 % High 5.0-12.0 [facility] Comment on above: Order Comment: No: D o not add to previous draw Performed By: #### 8 5499 #### [facility] [address] [place] [address], [facility] Neutrophils/100 WBC (Bld) 56.3 % Normal 40.0-72.0 [facility] Comment on above: Order Comment: No: D o not add to previous draw Performed By: #### 8 5499 #### [facility] [address] [place] [address], [facility] Nucleated RBC/100 WBC (Bld) [Ratio] 0 % Normal 0-0 [facility] Comment on above: Order Comment: No: D o not add to previous draw Performed By: #### 8 5499 #### [facility] [address] [place] [address], [facility] PLAT CNT 247 10*3/uL Normal 150-400 [facility] Comment on above: Order Comment: No: D o not add to previous draw Performed By: #### 8 5499 #### [facility] [address] [facility] [address], [facility] RBC (Bld) [#/Vol] 3.93 10*6/uL Normal 3.80-5.00 [facility] Comment on above: Order Comment: No: D o not add to previous draw Performed By: #### 8 5499 #### [facility] [address] [facility] [place] [address], [facility] WBC (Bld) [#/Vol] 9.05 10*3/uL Normal 4.00-10.60 [facility] Comment on above: Order Comment: No: D o not add to previous draw Performed By: #### 8 5499 #### [facility] [address] [facility] [place] [place] [address], [facility] MAGNESIUM BLOODon 07-01-2022 Magnesium [Mass/Vol] 1.7 mg/dL Low 1.9-2.7 [facility] Comment on above: Order Comment: No: D o not add to previous draw Performed By: #### 0 0071, 79568 #### [facility] [address] [place] [address], [facility] POC GLUCOSE LABon 07-01-2022 Glucose [Mass/Vol] 253 mg/dL High 70-100 [facility] [place] [facility] Comment on above: Performed By: #### 8 5499 #### [facility] [address] [place] [address], [facility] Glucose [Mass/Vol] 160 mg/dL High 70-100 [facility] Comment on above: Performed By: #### 8 5499 #### [facility] [address] [place] [address], [facility] Glucose [Mass/Vol] 174 mg/dL High 70-100 [facility] Comment on above: Performed By: #### 8 5499 #### [facility] [address] [facility] [place] [address], [facility] Glucose [Mass/Vol] 185 mg/dL High 70-100 [facility] Comment on above: Performed By: #### 8 5499 #### [facility] [address] [facility] [address], [facility] Glucose [Mass/Vol] 176 mg/dL High 70-100 [facility] Comment on above: Performed By: #### 8 5499 #### [facility] [address] [place] [address], [facility] UFH HEPARIN ASSAYon 07-01-20 22 UNFRACTIONATED HEPARIN 0.88 IU/mL High 0.30-0.70 Th e [facility] Comment on above: Result Comment: Erath roxaban and Apixaban will interfere with the anti Xa assay used to monitor UFH and LMWH. Performed By: #### 3 5200 #### [facility] [address] [place] [address], [facility] BASIC METABOLIC PANELon 08-2 Calcium [Mass/Vol] 8.5 mg/dL Low 8.6-10.3 [facility] Comment on above: Order Comment: No: D o not add to previous draw Performed By: #### 1 0070, 83628, 00982 #### [facility] [address] [place] [id number], [facility] Chloride [Moles/Vol] 103 mmol/L Normal 98-107 [facility] Comment on above: Order Comment: No: D o not add to previous draw Performed By: #### 1 0070, 55832, 55665 #### [facility] [address] [place] [address], [place] CO2 [Moles/Vol] 25 mmol/L Normal 21-31 [facility] Comment on above: Order Comment: No: D o not add to previous draw Performed By: #### 1 0070, 96518, 43921 #### [facility] [address] [place] [id number], [facility] Creatinine [Mass/Vol] 0.50 mg/dL Low 0.60-1.20 [facility] Comment on above: Order Comment: No: D o not add to previous draw Performed By: #### 1 0, 06979, 05506 #### [facility] [address] [place] [address], [place] GFR/1.73 sq M.predicted among non-blacks MDRD (S/P/Bld) [Vol rate/Area] mL/min/{1.73_m2} Normal >60 [facility] Comment on above: Order Comment: No: D o not add to previous draw Result Comment: [facility]'s estimated glomerular filtration rate (eGFR) will no [...] of individuals. Performed By: #### 1 0070, 21197, 74987 #### [facility] [address] [place] [address], [place] Glucose [Mass/Vol] 166 mg/dL High 70-100 [facility] Comment on above: Order Comment: No: D o not add to previous draw Performed By: #### 1 0, 90692, 32803 #### [facility] [address] [facility]. [address] Potassium [Moles/Vol] 3.3 mmol/L Low 3.5-5.1 [facility] Comment on above: Order Comment: No: D o not add to previous draw Performed By: #### 1 0, 79241, 72458 #### [facility] [address] [facility]. [address] Sodium [Moles/Vol] 138 mmol/L Normal 136-145 [facility] Comment on above: Order Comment: No: D o not add to previous draw Performed By: #### 1 0, 72064, 55740 #### [facility] [address] Urea nitrogen [Mass/Vol] 17 mg/dL Normal 7-25 [facility] Comment on above: Order Comment: No: D o not add to previous draw Performed By: #### 1 0, 87755, 32800 #### [facility] [address] CBC W/DIFFon 06-30-2022 ABS IMM GRANS 0.1 10*3/uL Normal 0.0-0.2 [facility] Comment on above: Order Comment: No: D o not add to previous draw No collection time noted on specimen or requisition. The collection time recorded is the time of receipt in the lab. Performed By: #### 3 5200 #### [facility] [address] ABS NEUTROPHILS 4.4 10*3/uL Normal 1.6-7.6 [facility] Comment on above: Order Comment: No: D o not add to previous draw No collection time noted on specimen or requisition. The collection time recorded is the time of receipt in the lab. Performed By: #### 3 5200 #### [facility] [address] [place] [address], [facility] Basophils (Bld) [#/Vol] 0.1 10*3/uL Normal 0.0-0.2 [facility] Comment on above: Order Comment: No: D o not add to previous draw No collection time noted on specimen or requisition. The collection time recorded is the time of receipt in the lab. Performed By: #### 3 5200 #### [facility] [address] [place] [address], [facility] Basophils/100 WBC (Bld) 0.6 % Normal 0.0-1.0 [facility] Comment on above: Order Comment: No: D o not add to previous draw No collection time noted on specimen or requisition. The collection time recorded is the time of receipt in the lab. Performed By: #### 3 5200 #### [facility] [address] [place] [address], [facility] Eosinophils (Bld) [#/Vol] 0.3 10*3/uL Normal 0.0-0.5 [facility] Comment on above: Order Comment: No: D o not add to previous draw No collection time noted on specimen or requisition. The collection time recorded is the time of receipt in the lab. Performed By: #### 3 5200 #### [facility] [address] [place] [address], [facility] Eosinophils/100 WBC (Bld) 3.3 % Normal 0.0-6.0 [facility] Comment on above: Order Comment: No: D o not add to previous draw No collection time noted on specimen or requisition. The collection time recorded is the time of receipt in the lab. Performed By: #### 3 5200 #### [facility] [address] Erythrocyte distribution width (RBC) [Ratio] 13.2 % Normal 11.5-15.0 [facility] Comment on above: Order Comment: No: D o not add to previous draw No collection time noted on specimen or requisition. The collection time recorded is the time of receipt in the lab. Performed By: #### 3 5200 #### [facility] [address] [place] [address], [facility] Hematocrit (Bld) [Volume fraction] 35.3 % Low 36.0-45.0 [facility] Comment on above: Order Comment: No: D o not add to previous draw No collection time noted on specimen or requisition. The collection time recorded is the time of receipt in the lab. Performed By: #### 3 5200 #### [facility] [address] [place] [address], [facility] Hemoglobin (Bld) [Mass/Vol] 11.2 g/dL Low 12.0-15.0 [facility] Comment on above: Order Comment: No: D o not add to previous draw No collection time noted on specimen or requisition. The collection time recorded is the time of receipt in the lab. Performed By: #### 3 5200 #### [facility] [address] IMMATURE GRANS 0.7 % Normal 0.0-1.0 [facility] Comment on above: Order Comment: No: D o not add to previous draw No collection time noted on specimen or requisition. The collection time recorded is the time of receipt in the lab. Performed By: #### 3 5200 #### [facility] [address] [place] [address], [facility] Lymphocytes (Bld) [#/Vol] 2.3 10*3/uL Normal 1.2-4.0 [facility] Comment on above: Order Comment: No: D o not add to previous draw No collection time noted on specimen or requisition. The collection time recorded is the time of receipt in the lab. Performed By: #### 3 5200 #### [facility] [address] [place] [address], [facility] Lymphocytes/100 WBC (Bld) 28.1 % Normal 20.0-45.0 [facility] Comment on above: Order Comment: No: D o not add to previous draw No collection time noted on specimen or requisition. The collection time recorded is the time of receipt in the lab. Performed By: #### 3 5200 #### [facility] [address] [place] [address], [facility] MCH (RBC) [Entitic mass] 26.3 pg Low 27.0-33.0 The [facility] Comment on above: Order Comment: No: D o not add to previous draw No collection time noted on specimen or requisition. The collection time recorded is the time of receipt in the lab. Performed By: #### 3 5200 #### [facility] [address] MCHC (RBC) [Mass/Vol] 31.7 g/dL Low 32.0-35.0 [facility] Comment on above: Order Comment: No: D o not add to previous draw No collection time noted on specimen or requisition. The collection time recorded is the time of receipt in the lab. Performed By: #### 3 5200 #### [facility] [address] MCV (RBC) [Entitic vol] 82.9 fL Normal 82.0-98.0 [facility] Comment on above: Order Comment: No: D o not add to previous draw No collection time noted on specimen or requisition. The collection time recorded is the time of receipt in the lab. Performed By: #### 3 5200 #### [facility] [address] [place] [address], [facility] Monocytes (Bld) [#/Vol] 1.1 10*3/uL High 0.1-1.0 [facility] Comment on above: Order Comment: No: D o not add to previous draw No collection time noted on specimen or requisition. The collection time recorded is the time of receipt in the lab. Performed By: #### 3 5200 #### [facility] [address] [facility] [place] [address], [facility] MONOS 13.3 % High 5.0-12.0 [facility] Comment on above: Order Comment: No: D o not add to previous draw No collection time noted on specimen or requisition. The collection time recorded is the time of receipt in the lab. Performed By: #### 3 5200 #### [facility] [address] [facility] [address], [facility] Neutrophils/100 WBC (Bld) 54.0 % Normal 40.0-72.0 [facility] Comment on above: Order Comment: No: D o not add to previous draw No collection time noted on specimen or requisition. The collection time recorded is the time of receipt in the lab. Performed By: #### 3 5200 #### [facility] [address] [facility] [place] [address], [facility] Nucleated RBC/100 WBC (Bld) [Ratio] 0 % Normal 0-0 [facility] Comment on above: Order Comment: No: D o not add to previous draw No collection time noted on specimen or requisition. The collection time recorded is the time of receipt in the lab. Performed By: #### 3 5200 #### [facility] [address] [facility] [place] [address], [facility] PLAT CNT 256 10*3/uL Normal 150-400 [facility] Comment on above: Order Comment: No: D o not add to previous draw No collection time noted on specimen or requisition. The collection time recorded is the time of receipt in the lab. Performed By: #### 3 5200 #### [facility] [address] [facility] [place] [address], [facility] RBC (Bld) [#/Vol] 4.26 10*6/uL Normal 3.80-5.00 [facility] Comment on above: Order Comment: No: D o not add to previous draw No collection time noted on specimen or requisition. The collection time recorded is the time of receipt in the lab. Performed By: #### 3 5200 #### [facility] [address] [facility] [place] [place] [address], [facility] WBC (Bld) [#/Vol] 8.18 10*3/uL Normal 4.00-10.60 [facility] Comment on above: Order Comment: No: D o not add to previous draw No collection time noted on specimen or requisition. The collection time recorded is the time of receipt in the lab. Performed By: #### 3 5200 #### [facility] [address] [facility]. [address] MAGNESIUM BLOODon 06-30-2022 Magnesium [Mass/Vol] 1.8 mg/dL Low 1.9-2.7 [facility] Comment on above: Order Comment: No: D o not add to previous draw Performed By: #### 1 0070, [id number], [id number] #### [facility] [address] [facility]. [address] POC GLUCOSE LABon 06-30-2022 Glucose [Mass/Vol] 266 mg/dL High 70-100 [facility] Comment on above: Performed By: #### 8 [id number] #### [facility] [address] [facility]. [address] Glucose [Mass/Vol] 346 mg/dL High 70-100 [facility] Comment on above: Performed By: #### 1 0, [id number], [id number] #### [facility] [address] [facility]. [address] Glucose [Mass/Vol] 206 mg/dL High 70-100 [facility] Comment on above: Performed By: #### 1 0070, 83027, [id number] #### [facility] [address] [facility] [place] [address], [facility] TROPONIN-Ion 06-30-2022 Troponin I.cardiac [Mass/Vol] 1.03 ng/mL Critically high 0.00-0.04 [facility] Comment on above: Result Comment: M-LA EVIOUS CRITICAL RESULT REFERENCE RANGES: 0.00 - 0.04 ng/ml NORMAL 0.05 - 0.50 ng/ml INDETERMINATE > 0.50 ng/ml CONSISTENT WITH AN M.I. Performed By: #### 1 0070, 38606, 55450 #### [facility] [address] UFH HEPARIN ASSAYon 06-30-20 UNFRACTIONATED HEPARIN 0.70 IU/mL Normal 0.30-0.70 Th e [facility] Comment on above: Result Comment: Erath roxaban and Apixaban will interfere with the anti Xa assay used to monitor UFH and LMWH. Performed By: #### 3 5200 #### [facility] [address] UNFRACTIONATED HEPARIN 0.61 IU/mL Normal 0.30-0.70 Th e [facility] Comment on above: Result Comment: Erath roxaban and Apixaban will interfere with the anti Xa assay used to monitor UFH and LMWH. Performed By: #### 8 [id number] #### [facility] [address] [facility]. [address] UNFRACTIONATED HEPARIN 0.85 IU/mL High 0.30-0.70 Th e [facility] Comment on above: Result Comment: Racheal roxaban and Apixaban will interfere with the anti Xa assay used to monitor UFH and LMWH. Performed By: #### 3 1791 #### [facility] [address] [facility]. [address] CBC COMPLETE BLOOD COUNTon 0 06-29-2022 Erythrocyte distribution width (RBC) [Ratio] 13.4 % Normal 11.5-15.0 [facility] Comment on above: Order Comment: No: D o not add to previous draw Performed By: #### 8 7269 #### [facility] [address] Hematocrit (Bld) [Volume fraction] 34.3 % Low 36.0-45.0 [facility] Comment on above: Order Comment: No: D o not add to previous draw Performed By: #### 8 [id number] #### [facility] [address] [place] [address], [facility] Hemoglobin (Bld) [Mass/Vol] 11.3 g/dL Low 12.0-15.0 [facility] Comment on above: Order Comment: No: D o not add to previous draw Performed By: #### 8 [id number] #### [facility] [address] [place] [address], [facility] MCH (RBC) [Entitic mass] 27.2 pg Normal 27.0-33.0 [facility] Comment on above: Order Comment: No: D o not add to previous draw Performed By: #### 8 [id number] #### [facility] [address] [place] [address], [facility] MCHC (RBC) [Mass/Vol] 32.9 g/dL Normal 32.0-35.0 [facility] Comment on above: Order Comment: No: D o not add to previous draw Performed By: #### 8 [id number] #### [facility] [address] [place] [id number], [facility] MCV (RBC) [Entitic vol] 82.7 fL Normal 82.0-98.0 [facility] Comment on above: Order Comment: No: D o not add to previous draw Performed By: #### 8 [id number] #### [facility] [address] [place] [address], [facility] Nucleated RBC/100 WBC (Bld) [Ratio] 0 % Normal 0-0 [facility] Comment on above: Order Comment: No: D o not add to previous draw Performed By: #### 8 [id number] #### [facility] [address] [place] [address], [facility] PLAT CNT 234 10*3/uL Normal 150-400 [facility] Comment on above: Order Comment: No: D o not add to previous draw Performed By: #### 8 [id number] #### [facility] [address] [place] [id number], [facility] RBC (Bld) [#/Vol] 4.15 10*6/uL Normal 3.80-5.00 [facility] Comment on above: Order Comment: No: D o not add to previous draw Performed By: #### 8 [id number] #### [facility] [address] [place] [id number], [facility] WBC (Bld) [#/Vol] 7.28 10*3/uL Normal 4.00-10.60 [facility] Comment on above: Order Comment: No: D o not add to previous draw Performed By: #### 8 [id number] #### [facility] [address] [place] [id number], [facility] Erythrocyte distribution width (RBC) [Ratio] 13.3 % Normal 11.5-15.0 [facility] Comment on above: Order Comment: No: D o not add to previous draw No collection time noted on specimen or requisition. The collection time recorded is the time of receipt in the lab. Performed By: #### 3 5200 #### [facility] [address] [place] [address], [facility] Hematocrit (Bld) [Volume fraction] 33.4 % Low 36.0-45.0 [facility] Comment on above: Order Comment: No: D o not add to previous draw No collection time noted on specimen or requisition. The collection time recorded is the time of receipt in the lab. Performed By: #### 3 5200 #### [facility] [address] [place] [id number], [facility] Hemoglobin (Bld) [Mass/Vol] 10.8 g/dL Low 12.0-15.0 [facility] Comment on above: Order Comment: No: D o not add to previous draw No collection time noted on specimen or requisition. The collection time recorded is the time of receipt in the lab. Performed By: #### 3 5200 #### [facility] [address] MCH (RBC) [Entitic mass] 26.8 pg Low 27.0-33.0 [facility] Comment on above: Order Comment: No: D o not add to previous draw No collection time noted on specimen or requisition. The collection time recorded is the time of receipt in the lab. Performed By: #### 3 5200 #### [facility] [address] MCHC (RBC) [Mass/Vol] 32.3 g/dL Normal 32.0-35.0 [facility] Comment on above: Order Comment: No: D o not add to previous draw No collection time noted on specimen or requisition. The collection time recorded is the time of receipt in the lab. Performed By: #### 3 5200 #### [facility] [address] MCV (RBC) [Entitic vol] 82.9 fL Normal 82.0-98.0 [facility] Comment on above: Order Comment: No: D o not add to previous draw No collection time noted on specimen or requisition. The collection time recorded is the time of receipt in the lab. Performed By: #### 3 5200 #### [facility] [address] Nucleated RBC/100 WBC (Bld) [Ratio] 0 % Normal 0-0 [facility] Comment on above: Order Comment: No: D o not add to previous draw No collection time noted on specimen or requisition. The collection time recorded is the time of receipt in the lab. Performed By: #### 3 5200 #### [facility] [address] PLAT CNT 227 10*3/uL Normal 150-400 [facility] Comment on above: Order Comment: No: D o not add to previous draw No collection time noted on specimen or requisition. The collection time recorded is the time of receipt in the lab. Performed By: #### 3 5200 #### [facility] [address] [place] [address], [facility] RBC (Bld) [#/Vol] 4.03 10*6/uL Normal 3.80-5.00 [facility] Comment on above: Order Comment: No: D o not add to previous draw No collection time noted on specimen or requisition. The collection time recorded is the time of receipt in the lab. Performed By: #### 3 5200 #### [facility] [address] [place] [address], [facility] WBC (Bld) [#/Vol] 7.85 10*3/uL Normal 4.00-10.60 [facility] Comment on above: Order Comment: No: D o not add to previous draw No collection time noted on specimen or requisition. The collection time recorded is the time of receipt in the lab. Performed By: #### 3 5200 #### [facility] [address] CBC W/DIFFon 06-29-2022 ABS IMM GRANS 0.0 10*3/uL Normal 0.0-0.2 [facility] Comment on above: Order Comment: No co llection time noted on specimen or requisition. The collection timerecorded is the time of receipt in the lab. Performed By: #### 8 [id number] #### [facility] [address] ABS NEUTROPHILS 5.2 10*3/uL Normal 1.6-7.6 [facility] Comment on above: Order Comment: No co llection time noted on specimen or requisition. The collection timerecorded is the time of receipt in the lab. Performed By: #### 8 [id number] #### [facility] [address] [place] [address], [facility] Basophils (Bld) [#/Vol] 0.0 10*3/uL Normal 0.0-0.2 [facility] Comment on above: Order Comment: No co llection time noted on specimen or requisition. The collection timerecorded is the time of receipt in the lab. Performed By: #### 8 [id number] #### [facility] [address] [place] [address], [facility] Basophils/100 WBC (Bld) 0.5 % Normal 0.0-1.0 [facility] Comment on above: Order Comment: No co llection time noted on specimen or requisition. The collection timerecorded is the time of receipt in the lab. Performed By: #### 8 [id number] #### [facility] [address] [facility] [place] [address], [facility] Eosinophils (Bld) [#/Vol] 0.1 10*3/uL Normal 0.0-0.5 [facility] Comment on above: Order Comment: No co llection time noted on specimen or requisition. The collection timerecorded is the time of receipt in the lab. Performed By: #### 8 [id number] #### [facility] [address] [facility] [place] [address], [facility] Eosinophils/100 WBC (Bld) 1.3 % Normal 0.0-6.0 [facility] Comment on above: Order Comment: No co llection time noted on specimen or requisition. The collection timerecorded is the time of receipt in the lab. Performed By: #### 8 [id number] #### [facility] [address] [facility] [place] [address], [facility] Erythrocyte distribution width (RBC) [Ratio] 13.3 % Normal 11.5-15.0 [facility] Comment on above: Order Comment: No co llection time noted on specimen or requisition. The collection timerecorded is the time of receipt in the lab. Performed By: #### 8 [id number] #### [facility] [address] [place] [address], [facility] Hematocrit (Bld) [Volume fraction] 34.0 % Low 36.0-45.0 [facility] Comment on above: Order Comment: No co llection time noted on specimen or requisition. The collection timerecorded is the time of receipt in the lab. Performed By: #### 8 [id number] #### [facility] [address] [facility] [place] [address], [facility] Hemoglobin (Bld) [Mass/Vol] 11.4 g/dL Low 12.0-15.0 [facility] Comment on above: Order Comment: No co llection time noted on specimen or requisition. The collection timerecorded is the time of receipt in the lab. Performed By: #### 8 [id number] #### [facility] [address] IMMATURE GRANS 0.4 % Normal 0.0-1.0 [facility] Comment on above: Order Comment: No co llection time noted on specimen or requisition. The collection timerecorded is the time of receipt in the lab. Performed By: #### 8 [id number] #### [facility] [address] [place] [address], [facility] Lymphocytes (Bld) [#/Vol] 1.5 10*3/uL Normal 1.2-4.0 [facility] Comment on above: Order Comment: No co llection time noted on specimen or requisition. The collection timerecorded is the time of receipt in the lab. Performed By: #### 8 [id number] #### [facility] [address] [facility] [place] [place] [address], [facility] Lymphocytes/100 WBC (Bld) 19.5 % Low 20.0-45.0 [facility] Comment on above: Order Comment: No co llection time noted on specimen or requisition. The collection timerecorded is the time of receipt in the lab. Performed By: #### 8 [id number] #### [facility] [address] [facility] [place] [place] [address], [facility] MCH (RBC) [Entitic mass] 27.7 pg Normal 27.0-33.0 [facility] Comment on above: Order Comment: No co llection time noted on specimen or requisition. The collection timerecorded is the time of receipt in the lab. Performed By: #### 8 [id number] #### [facility] [address] MCHC (RBC) [Mass/Vol] 33.5 g/dL Normal 32.0-35.0 [facility] Comment on above: Order Comment: No co llection time noted on specimen or requisition. The collection timerecorded is the time of receipt in the lab. Performed By: #### 8 [id number] #### [facility] [address] [facility] [address] MCV (RBC) [Entitic vol] 82.7 fL Normal 82.0-98.0 [facility] Comment on above: Order Comment: No co llection time noted on specimen or requisition. The collection timerecorded is the time of receipt in the lab. Performed By: #### 8 [id number] #### [facility] [address] Monocytes (Bld) [#/Vol] 1.0 10*3/uL Normal 0.1-1.0 [facility] Comment on above: Order Comment: No co llection time noted on specimen or requisition. The collection timerecorded is the time of receipt in the lab. Performed By: #### 8 [id number] #### [facility] [address] MONOS 12.5 % High 5.0-12.0 [facility] Comment on above: Order Comment: No co llection time noted on specimen or requisition. The collection timerecorded is the time of receipt in the lab. Performed By: #### 8 [id number] #### [facility] [address] Neutrophils/100 WBC (Bld) 65.8 % Normal 40.0-72.0 [facility] Comment on above: Order Comment: No co llection time noted on specimen or requisition. The collection timerecorded is the time of receipt in the lab. Performed By: #### 8 [id number] #### [facility] [address] [facility]. [address] Nucleated RBC/100 WBC (Bld) [Ratio] 0 % Normal 0-0 [facility] Comment on above: Order Comment: No co llection time noted on specimen or requisition. The collection timerecorded is the time of receipt in the lab. Performed By: #### 8 [id number] #### [facility] [address] [place] [address], [facility] PLAT CNT 235 10*3/uL Normal 150-400 [facility] Comment on above: Order Comment: No co llection time noted on specimen or requisition. The collection timerecorded is the time of receipt in the lab. Performed By: #### 8 [id number] #### [facility] [address] [facility] [place] [place] [address], [facility] RBC (Bld) [#/Vol] 4.11 10*6/uL Normal 3.80-5.00 [facility] Comment on above: Order Comment: No co llection time noted on specimen or requisition. The collection timerecorded is the time of receipt in the lab. Performed By: #### 8 [id number] #### [facility] [address] [facility]. [address] WBC (Bld) [#/Vol] 7.91 10*3/uL Normal 4.00-10.60 [facility] Comment on above: Order Comment: No co llection time noted on specimen or requisition. The collection timerecorded is the time of receipt in the lab. Performed By: #### 8 [id number] #### [facility] [address] [facility] [place] [place] [address], [facility] COMP METABOLIC PANELon 06-29 Albumin [Mass/Vol] 2.9 g/dL Low 3.5-5.7 [facility] Comment on above: Order Comment: No: D o not add to previous draw No collection time noted on specimen or requisition. The collection time recorded is the time of receipt in the lab. Performed By: #### 3 1791 #### [facility] [address] [place] [address], [facility] ALKALINE PHOSPH 88 IU/L Normal 34-104 [facility] Comment on above: Order Comment: No: D o not add to previous draw No collection time noted on specimen or requisition. The collection time recorded is the time of receipt in the lab. Performed By: #### 3 179 #### [facility] [address] [place] [id number], [facility] ALT [Catalytic activity/Vol] 21 U/L Normal 7-52 [facility] Comment on above: Order Comment: No: D o not add to previous draw No collection time noted on specimen or requisition. The collection time recorded is the time of receipt in the lab. Performed By: #### 3 1791 #### [facility] [address] [place] [address], [facility] AST [Catalytic activity/Vol] 27 U/L Normal 13-39 [facility] Comment on above: Order Comment: No: D o not add to previous draw No collection time noted on specimen or requisition. The collection time recorded is the time of receipt in the lab. Performed By: #### 3 1791 #### [facility] [address] [place] [address], [facility] Bilirubin [Mass/Vol] 0.5 mg/dL Normal 0.3-1.0 [facility] Comment on above: Order Comment: No: D o not add to previous draw No collection time noted on specimen or requisition. The collection time recorded is the time of receipt in the lab. Performed By: #### 3 1791 #### [facility] [address] [place] [address], [facility] Calcium [Mass/Vol] 8.2 mg/dL Low 8.6-10.3 [facility] Comment on above: Order Comment: No: D o not add to previous draw No collection time noted on specimen or requisition. The collection time recorded is the time of receipt in the lab. Performed By: #### 3 1791 #### [facility] [address] [place] [address], [facility] Chloride [Moles/Vol] 101 mmol/L Normal 98-107 [facility] Comment on above: Order Comment: No: D o not add to previous draw No collection time noted on specimen or requisition. The collection time recorded is the time of receipt in the lab. Performed By: #### 3 1791 #### [facility] [address] [place] [address], [facility] CO2 [Moles/Vol] 22 mmol/L Normal 21-31 [facility] Comment on above: Order Comment: No: D o not add to previous draw No collection time noted on specimen or requisition. The collection time recorded is the time of receipt in the lab. Performed By: #### 3 1791 #### [facility] [address] [place] [address], [facility] Creatinine [Mass/Vol] 0.45 mg/dL Low 0.60-1.20 [facility] Comment on above: Order Comment: No: D o not add to previous draw No collection time noted on specimen or requisition. The collection time recorded is the time of receipt in the lab. Performed By: #### 3 1791 #### [facility] [address] [place] [address], [facility] GFR/1.73 sq M.predicted among non-blacks MDRD (S/P/Bld) [Vol rate/Area] mL/min/{1.73_m2} Normal >60 [facility] Comment on above: Order Comment: No: D o not add to previous draw No collection time noted on specimen or requisition. The collection time recorded is the time of receipt in the lab. Result Comment: [facility]'s estimated glomerular filtration rate (eGFR) will no [...] individuals. Performed By: #### 3 1791 #### [facility] [address] [facility] [place] [address], [facility] Glucose [Mass/Vol] 278 mg/dL High 70-100 [facility] Comment on above: Order Comment: No: D o not add to previous draw No collection time noted on specimen or requisition. The collection time recorded is the time of receipt in the lab. Performed By: #### 3 1791 #### [facility] [address] [place] [address], [facility] Potassium [Moles/Vol] 3.8 mmol/L Normal 3.5-5.1 [facility] [facility] Comment on above: Order Comment: No: D o not add to previous draw No collection time noted on specimen or requisition. The collection time recorded is the time of receipt in the lab. Performed By: #### 3 1791 #### [facility] [address] [facility] [address], [facility] Protein [Mass/Vol] 5.3 g/dL Low 6.0-8.3 The [facility] Comment on above: Order Comment: No: D o not add to previous draw No collection time noted on specimen or requisition. The collection time recorded is the time of receipt in the lab. Performed By: #### 3 1791 #### [facility] [address] [place] [address], [facility] Sodium [Moles/Vol] 133 mmol/L Low 136-145 The [facility] Comment on above: Order Comment: No: D o not add to previous draw No collection time noted on specimen or requisition. The collection time recorded is the time of receipt in the lab. Performed By: #### 3 1791 #### [address] Urea nitrogen [Mass/Vol] 19 mg/dL Normal 7-25 The [facility] Comment on above: Order Comment: No: D o not add to previous draw No collection time noted on specimen or requisition. The collection time recorded is the time of receipt in the lab. Performed By: #### 3 1791 #### [address] CTA CHESTon 06-29-2022 CTA CHEST [facility] Department of Radiology [address] [place], [place] [id number] ======== Patient Name: MARIMAR PATEL : 1955 Sex: F Age: Race: White Pt. Location: [facility] Patient Status: E Ordered Date: 2022 11:35:00 [...] report. Electronically signed: Shane Baldwin. Transcribed by: [email or web address], User Resident: HILL RUSS Electronically Signed by: SHANE BALDWIN @ 06/29/2022 01:00 AM I personally read this/these film(s) with this resident Normal The [facility] Comment on above: Order Comment: Pulmo nary Embolism HEMOGLOBIN A1Con 06-29-2022 Glucose [Moles/Vol] 111 mmol/L Normal [facility] Comment on above: Order Comment: No: D o not add to previous draw No collection time noted on specimen or requisition. The collection time recorded is the time of receipt in the lab. Performed By: #### 3 1791 #### [facility] [address] [place] [address], [facility] HbA1c (Bld) [Mass fraction] 5.5 % Normal 4.0-6.0 The [facility] Comment on above: Order Comment: No: D o not add to previous draw No collection time noted on specimen or requisition. The collection time recorded is the time of receipt in the lab. Performed By: #### 3 1791 #### [facility] [address] [facility]. [address] LIPID PROFILEon 06-29-2022 Cholesterol [Mass/Vol] 223 mg/dL High 120-200 Th e [facility] Comment on above: Result Comment: CHOL ESTEROL REFERENCE RANGE: 20 YEARS AND OLDER CARDIOVASCULAR RISK Less than 200 mg/dl Low Risk 200 to 239 mg/dl Borderline Risk 240 mg/dl and greater High Risk Performed By: #### 3 1791 #### [facility] [address] Cholesterol in HDL [Mass/Vol] 28 mg/dL Normal 23-92 The [facility] Comment on above: Result Comment: Slig ht variation in normal range could be due to gender and/or age. HDL CHOLESTEROL REFERENCE RANGE: 20 years and older Cardiovascular Risk > or =60 mg/dL Desirable 40 TO 59 mg/dL Low Risk <40 mg/dL High Risk Performed By: #### 3 1791 #### [facility] [address] [facility] [place] [address], [facility] Cholesterol in LDL [Mass/Vol] 138 mg/dL High 0-130 The [facility] Comment on above: Result Comment: LDL IS A CALCULATION LDL IS ONLY VALID IF THE TRIG IS LESS THAN 400. Performed By: #### 3 1791 #### [facility] [address] [facility] [place] [place] [address], [facility] Cholesterol.total/Chol esterol in HDL [Mass ratio] 8.0 {ratio} High .0-4.5 The [facility] Comment on above: Performed By: #### 3 1791 #### [facility] [address] [place] [address], [facility] NON-HDL CHOLESTEROL 195 mg/dL Normal The [facility] Comment on above: Performed By: #### 3 1791 #### [facility] [address] [place] [address], [facility] Triglyceride [Mass/Vol] 285 mg/dL High 40-149 The [facility] Comment on above: Result Comment: TRIG LYCERIDE REFERENCE RANGE: 20 YEARS AND OLDER CARDIOVASCULAR RISK LESS THAN 150 mg/dl LOW RISK 150 TO 199 mg/dl BORDERLINE RISK 200 mg/dl AND GREATER HIGH RISK Performed By: #### 3 1 #### [facility] [address] [facility] [address], [facility] VLDL CHOL 57 mg/dL High 0-40 The [facility] Comment on above: Performed By: #### 3 1791 #### [facility] [address] [facility] [address], [facility] POC GLUCOSE LABon 06-29-2022 Glucose [Mass/Vol] 190 mg/dL High 70-100 The [facility] Comment on above: Performed By: #### 8 5499 #### [facility] [address] [facility] [address], [place] Glucose [Mass/Vol] 256 mg/dL High 70-100 The [facility] Comment on above: Performed By: #### 8 5499 #### [facility] [address] [facility] [address], [place] Glucose [Mass/Vol] 444 mg/dL High 70-100 The [facility] Comment on above: Performed By: #### 1 0070, 94650, 29899 #### [facility] [address] [facility]. [address] Glucose [Mass/Vol] 304 mg/dL High 70-100 The [facility] Comment on above: Performed By: #### 1 0070, 80821, 19277 #### [facility] [address] POC SARS COV2 ANTIGEN NEGATI VEon 06-29-2022 POC SARS COV2 ANTIGEN NEG Negative Normal NEGATIVE The [facility] Comment on above: Result Comment: Nega tive [...] antigen from SARS-CoV-2 in direct nasopharyngeal swab (DIE SINKING MACHINE OPERATOR) specimens from individuals who are suspected of [...] Accreditation. Performed By: #### 8 5499 #### [facility] [address] [facility]. [place] [id number], [facility] TROPONIN-Ion 06-29-2022 Troponin I.cardiac [Mass/Vol] 1.52 ng/mL Critically high 0.00-0.04 The [facility] Comment on above: Order Comment: No: D o not add to previous draw No collection time noted on specimen or requisition. The collection time recorded is the time of receipt in the lab. Result Comment: M-LA EVIOUS CRITICAL RESULT REFERENCE RANGES: 0.00 - 0.04 ng/ml NORMAL 0.05 - 0.50 ng/ml INDETERMINATE > 0.50 ng/ml CONSISTENT WITH AN M.I. Performed By: #### 3 5200 #### [facility] [address] Troponin I.cardiac [Mass/Vol] 1.77 ng/mL Critically high 0.00-0.04 The [facility] Comment on above: Order Comment: No: D [...] M.I. Performed By: #### 3 1791 #### [facility] [address] TSH3 WITH REFLEX FT4on 06-29 TSH 3RD GENERATION 1.96 uIU/mL Normal 0.34-5.60 The [facility] Comment on above: Performed By: #### 3 1791 #### [facility] [address] [place] [address], [facility] UFH HEPARIN ASSAYon 06-29-20 22 UNFRACTIONATED HEPARIN 0.15 IU/mL Critically low 0.30-0.70 The [facility] Comment on above: Result Comment: RESU LTS CHECKED AND CALLED. ACCURATELY READ BACK BY Isabela Shannon RN at 2220 PMW 06-29-22. Rivaroxaban and Apixaban will interfere with the anti Xa assay used to monitor UFH and LMWH. Performed By: #### 3 1791 #### [facility] [address] [place] [address], [facility] UNFRACTIONATED HEPARIN <0.10 Critically low 0.30-0.70 The [facility] Comment on above: Result Comment: Resu lt checked and called. Accurately read back by JENNIFER WILLINGHAM RN @1404 06/29/22 Rivaroxaban and Apixaban will interfere with the anti Xa assay used to monitor UFH and LMWH. Performed By: #### 3 5200 #### [facility] [address] UNFRACTIONATED HEPARIN <0.10 Critically low 0.30-0.70 [facility] Comment on above: Result Comment: RESU LTS CHECKED AND CALLED. ACCURATELY READ BACK BY REG KILGORE RN @ 0531 Rivaroxaban and Apixaban will interfere with the anti Xa assay used to monitor UFH and LMWH. Performed By: #### 3 5200 #### [facility] [address] [facility] [address] APTTon 2022 aPTT Coag (Bld) [Time] 32.0 s Normal 25.0-35.0 e [facility] Comment on above: Result Comment: ALL RESULTS [...] PURPOSE. Performed By: #### 3 5200 #### [facility] [address] [facility] [place] [address], [facility] BNPon 2022 Natriuretic peptide B (Bld) [Mass/Vol] 3794.0 pg/mL Critically high <=900.0 [facility] Comment on above: Performed By: #### C BC #### [facility] [address] [place] [address] Dr. Sruthi Arechiga CARDIAC TONJA ADMITon 022 CK [Catalytic activity/Vol] 51 U/L Normal 26-192 [facility] Comment on above: Performed By: #### C BC #### [facility] [address] [place] [address] Dr. Sruthi Arechiga CK.MB [Mass/Vol] 2.23 ng/mL Normal <=3.60 The [facility] [place] [facility] Comment on above: Performed By: #### C BC #### [facility] [address] [place] [address] [address] Sruthi Arechiga HSTROP 705.8 pg/mL Critically high 4.0-51.3 The [facility] [place] [facility] Comment on above: Result Comment: CUT- OFF POINTS HAVE BEEN ESTABLISHED BASED ON THE FOURTH UNIVERSAL DEFINITIONS OF MYOCARDIAL INFARCTION. THE UPPER REFERENCE LIMIT (URL) OF TROPONIN, DEFINED THE 99TH PERCENTILE OF cTnI DISTRIBUTION IN A REFERENCE POPULATION, HAS BEEN CONFIRMED THE DECISION THRESHOLD FOR PA DIAGNOSIS. Performed By: #### C BC #### [facility] [address] [place] [address] Dr. Sruthi Arechiga DIMITRY 73 ng/mL Normal 9-82 The [facility] Comment on above: Performed By: #### C BC #### [facility] [address] [place] [address] Dr. Sruthi Arechiga CBC W MANUAL DIFFon 06-28-20 22 ATYPICAL LYMPH # Normal The [facility] [place] [facility] Comment on above: Performed By: #### C PITA ####[facility] [address] [place] [address]DrIndu Arechiga ATYPICAL LYMPH % Normal The [facility] [place] [facility] Comment on above: Performed By: #### C LIMAN ####[facility] [address] [place] [address]DrIndu Arechiga BAND # 0.1 103/ul Normal 0.0-0.3 The [facility] Comment on above: Performed By: #### C BCMAN ####[facility] [address] [place] [address]DrIndu Arechiga BAND % 1 % Normal 0-5 The [facility] Comment on above: Performed By: #### C BCMAN ####[facility] [address] [place] [address]DrIndu Arechiga BASOM # 0.00 103/ul Normal 0.00-0.10 The [facility] Comment on above: Performed By: #### C BCMAN ####[facility] [address] [place] [id number]. Sruthi Arechiga BASOM % 0.0 % Critically low 0.2-2.0 The [facility] Comment on above: Performed By: #### C BCJOSE ANGEL ####[facility] [address]ym[address] [place] [id number]. Sruthi Arechiga BLAST # Normal The [facility] Comment on above: Performed By: #### C BCJOSE ANGEL ####[facility] [address] [place] [id number]. Sruthi Arechiga BLAST % Normal The [facility] Comment on above: Performed By: #### C PITA ####[facility] [address] [place] [address]Dr. Sruthi Arechiga CORRECTED WBC Normal 4.0-11.0 [facility] Comment on above: Performed By: #### C PITA ####[facility] [address] [place] [address]Dr. Sruthi Arechiga EOS # 0.13 103/ul Normal 0.00-0.70 [facility] Comment on above: Performed By: #### C PITA ####[facility] Qw[address] [place] [address]Dr. Sruthi Arechiga EOS% 1.0 % Normal 0.9-7.0 [facility] Comment on above: Performed By: #### C PITA ####[facility] [address]zbywpst[address] [place] [address]Dr. Sruthi Arechiga HCT 38.8 % Normal 36.0-48.0 The [facility] Comment on above: Performed By: #### C PITA ####[facility] [address] [place] [id number]. Sruthi Arechiga HGB 12.5 g/dl Normal 12.0-16.0 The [facility] Comment on above: Performed By: #### C PITA ####[facility] Kin[address] [place], [place] [address]Dr. Sruthi Arechiga LYMPHM # 1.51 103/ul Normal 1.20-3.80 The [facility] Comment on above: Performed By: #### C PITA ####[facility] [address] [place], [place] [address]Dt. Sruthi Arechiga LYMPHM% 12.0 % Critically low 20.5-60.0 The [facility] Comment on above: Performed By: #### C PITA ####[facility] [address] [place], [place] [address]Rt. Sruthi Arechiga MCH 27.2 pg Normal 26.7-34.0 The [facility] Comment on above: Performed By: #### C PITA ####[facility] [address]zl[address]su[address]axk[address] [place] [id number]. Sruthi Arechiga MCHC 32.2 g/dl Normal 29.9-35.2 The [facility] Comment on above: Performed By: #### C PITA ####[facility] Qcsc[address]udmgl24[address] [place] [id number]. Sruthi Arechiga MCV 84.3 fL Normal 81.0-99.0 The [facility] Comment on above: Performed By: #### C PITA ####[facility] Isjsszlhdp[address] [place] [id number]. Sruthi Arechiga METAMYELOCYTE # Normal The [facility] Comment on above: Performed By: #### C PITA ####[facility] Wkvypdslmy[address] [place] [id number]. Sruthi Arechiga METAMYELOCYTE % Normal The [facility] Comment on above: Performed By: #### C PITA ####[facility] Eqzozmanrs[address] [place] [address]Dr. Sruthi Arechiga MONOM# 1.64 103/ul Critically high 0.30-0.80 The [facility] [place] [facility] Comment on above: Performed By: #### C PITA ####[facility] Tx[address]lcibai[address] [place] [id number]. Sruthi Arechiga MONOM% 13.0 % Critically high 1.7-12.0 The [facility] Comment on above: Performed By: #### C PITA ####[facility] Wkwaeyztfx[address] [place] [id number]. Sruthi Arechiga MPV 11.7 fL Normal 9.5-13.5 The [facility] Comment on above: Performed By: #### C PITA ####[facility] Bkmekxkwwh[address] [place] [id number]. Sruthi Arechiga MYELOCYTE # Normal The [facility] Comment on above: Performed By: #### C PITA ####[facility] Nxqufiuhey[address] [place] [id number]. Sruthi Arechiga MYELOCYTE % Normal The [facility] Comment on above: Performed By: #### C PITA ####[facility] Zehxorvfog[address] [place] [id number]. Sruthi Arechiga NRBC Normal The [facility] Comment on above: Performed By: #### C PITA ####[facility] Wgehboxxjy8495 [place] [id number]. Sruthi Arechiga PLT 237 103/ul Normal 150-450 The [facility] Comment on above: Performed By: #### C PITA ####[facility] Hhfbeilmbm27[address] [place] [id number]. Sruthi Arechiga RBC 4.60 106/ul Normal 4.20-5.40 The [facility] Comment on above: Performed By: #### Uvaldo LEMA ####[facility] Zjwbsogpdx37[address] [place] [id number]. Sruthi Arechiga RDW 13.2 % Normal 11.0-15.0 The [facility] Comment on above: Performed By: #### C PITA ####[facility] Bvjjszewan[address] [place] [id number]. Sruthi Arechiga SEG # 9.20 103/ul Critically high 1.40-6.50 The [facility] [place] [facility] Comment on above: Performed By: #### Uvaldo LEMA ####[facility] [address]qfa[address]rzfh[address] [place] [id number]. Sruthi Arechiga SEG % 73.0 % Normal 43.0-75.0 The [facility] Comment on above: Performed By: #### Uvaldo LEMA ####[facility] Djwphxrmjz3731 [place] [id number] Arechiga WBC 12.6 103/ul Critically high 4.0-11.0 [facility] Comment on above: Performed By: #### C BCJEFFERSONVILLE ####[facility] Jrndghpajy[address] [place], [place] [address]NoIndu Arechiga Cov[facility]-19 PCR [facility]10 SARS-CoV-2 (COVID-19) RNA KOLE+probe Ql (Unsp spec) Not detected Normal NOT DETECTED [facility] Comment on above: Result Comment: When diagnostic [...] for this test is supported by the [employer] Agent of Health and Human Service's declaration that [...] be used). Performed By: #### C VDTB ####[facility] Veryfpteow[address] [place], [place] [address]Dr. Sruthi Arechiga LIPASEon 2022 Lipase [Catalytic activity/Vol] 75.0 U/L Normal 73.0-393.0 [facility] Comment on above: Performed By: #### C BC #### [facility] [address] [place] [address] [address] Sruthi Arechiga POINT OF CARE GLUCOSEon 06-10 Glucose [Mass/Vol] 351 mg/dL Critically high 74-106 T [facility] Comment on above: Performed By: #### C VDTB #### [facility] [address] [place] [address] [address] Sruthi Arechiga PROF 14(COMP METB)on 022 Albumin [Mass/Vol] 2.5 g/dL Critically low 3.4-5.0 [facility] Comment on above: Performed By: #### C MP #### [facility] [address] [place] [address] Dr. Sruthi Arechiga Albumin/Globulin [Mass ratio] 0.6 {ratio} Normal [facility] Comment on above: Performed By: #### C MP #### [facility] [address] [place] [address] Dr. Sruthi Arechiga ALP [Catalytic activity/Vol] 132 U/L Critically high 46-116 [facility] Comment on above: Performed By: #### C MP #### [facility] [address] [place] [address] Dr. Sruthi Arechiga ALT [Catalytic activity/Vol] 32 U/L Normal 14-59 [facility] Comment on above: Performed By: #### C MP #### [facility] [address] [place] [address] Dr. Sruthi Arechiga Anion gap [Moles/Vol] 19.2 mmol/L Normal [facility] Comment on above: Performed By: #### C MP #### [facility] [address] [place] [address] Dr. Sruthi Arechiga AST [Catalytic activity/Vol] 24 U/L Normal 15-37 [facility] Comment on above: Performed By: #### C MP #### [facility] [address] [place] [address] Dr. Sruthi Arechiga Bilirubin [Mass/Vol] 0.5 mg/dL Normal 0.2-1.0 [facility] Comment on above: Performed By: #### C MP #### [facility] [address] [place] [address] Dr. Sruthi Arechiga Calcium [Mass/Vol] 9.5 mg/dL Normal 8.5-10.1 [facility] Comment on above: Performed By: #### C MP #### [facility] [address] [place] [address] Dr. Sruthi Arechiga Chloride [Moles/Vol] 95 mmol/L Critically low 98-107 [facility] Comment on above: Performed By: #### C MP #### [facility] [address] [place] [address] [address] Sruthi Arechiga CO2 [Moles/Vol] 20.3 mmol/L Critically low 21.0-32.0 [facility] Comment on above: Performed By: #### C MP #### [facility] [address] [place] [address] [address] Sruthi Arechiga Creatinine [Mass/Vol] 0.78 mg/dL Normal 0.55-1.02 [facility] Comment on above: Performed By: #### C MP #### [facility] [address] [place] [address] Dr. Sruthi Arechiga EGFR-AF POLISH >60 Normal >=60 [facility] Comment on above: Performed By: #### C MP #### [facility] [address] [place] [address] Dr. Sruthi Arechiga EGFR-NON AF POLISH >60 Normal >=60 [facility] Comment on above: Performed By: #### C MP #### [facility] [address] [place] [address] [address] Sruthi Arechiga Globulin (S) [Mass/Vol] 4.3 g/dL Normal [facility] Comment on above: Performed By: #### C MP #### [facility] [address] [place] [address] Dr. Sruthi Arechiga Glucose [Mass/Vol] 389 mg/dL Critically high 74-106 [facility] Comment on above: Performed By: #### C MP #### [facility] [address] [place] [address] [address] Sruthi Arechiga Potassium [Moles/Vol] 3.5 mmol/L Normal 3.5-5.1 [facility] Comment on above: Performed By: #### C MP #### [facility] [address] [place] [address] [address] Sruthi Arechiga Protein [Mass/Vol] 6.8 g/dL Normal 6.4-8.2 [facility] Comment on above: Performed By: #### C MP #### [facility] [address] [place] [address] [address] Sruthi Arechiga Sodium [Moles/Vol] 131 mmol/L Critically low 136-145 Th [facility] Comment on above: Performed By: #### C MP #### [facility] [address] [place] [address] [address] Sruthi Arechiga Urea nitrogen [Mass/Vol] 24.0 mg/dL Critically high 7.0-18.0 [facility] Comment on above: Performed By: #### C MP #### [facility] [address] [place] [address] [address] Sruthi Arechiga Urea nitrogen/Creatinine [Mass ratio] 30.8 mg/mg Normal [facility] Comment on above: Performed By: #### C MP #### [facility] [address] [place] [address] [address] Sruthi Arechiga PROTHROMBIN TIMEon 2 INR Coag (PPP) [Relative time] 1.01 {INR} Normal 0.91-1.16 [facility] Comment on above: Result Comment: ACCC P [...] 1995;[id number]. Performed By: #### 3 5200 #### [facility] [address] [place] [address], [facility] PT Coag (PPP) [Time] 13.3 s Normal 12.3-14.8 The [facility] Comment on above: Result Comment: ALL RESULTS MUST BE INTERPRETED WITH RESPECT TO BLOOD DRAWING ARTIFACT OR DILUTION ERROR OF ANTICOAGULANT AT THE TIME OF SAMPLING. Performed By: #### 3 5200 #### [facility] [address] [place] [address], [facility] PROTIMEon 2022 INR Coag (PPP) [Relative time] 0.98 {INR} Normal [facility] Comment on above: Performed By: #### C VDTBH #### [facility] [address] [place] [address] Dr. Sruthi Arechiga INR GUIDELINES SEE BELOW Normal [facility] Comment on above: Result Comment: JESSICA RED INR: 2.0 - 3.0 CONDITIONS NOT LISTED BELOW 2.5 - 3.5 FOR PROSTHETIC HEART VALVE REPLACEMENT 2.5 - 3.5 RECURRENT THROMBOSIS Performed By: #### C VDTBH #### [facility] [address] [place] [address] [address] Sruthi Arechiga PT Coag (PPP) [Time] 10.6 s Normal 9.0-11.6 [facility] Comment on above: Performed By: #### C VDTBH #### [facility] [address] [place] [address] [address] Sruthi Arechiga PTTon 2022 aPTT Coag (Bld) [Time] 32.5 s Normal 22.3-36.2 [facility] Comment on above: Performed By: #### C VDTBH #### [facility] [address] [place] [address] Dr. Sruthi Arechiga TROPONIN, HIGH SENSITIVITYon 2022 HSTROP 4940.1 pg/mL Critically high 4.0-51.3 [facility] Comment on above: Result Comment: CUT- OFF POINTS HAVE BEEN ESTABLISHED BASED ON THE FOURTH UNIVERSAL DEFINITIONS OF MYOCARDIAL INFARCTION. THE UPPER REFERENCE LIMIT (URL) OF TROPONIN, DEFINED THE 99TH PERCENTILE OF cTnI DISTRIBUTION IN A REFERENCE POPULATION, HAS BEEN CONFIRMED THE DECISION THRESHOLD FOR PA DIAGNOSIS. Performed By: #### H STROPN #### [facility] [address] [place], [place] [address] Dr. Sruthi Arechiga HSTROP 1816.7 pg/mL Critically high 4.0-51.3 [facility] Comment on above: Result Comment: CUT- OFF POINTS HAVE BEEN ESTABLISHED BASED ON THE FOURTH UNIVERSAL DEFINITIONS OF MYOCARDIAL INFARCTION. THE UPPER REFERENCE LIMIT (URL) OF TROPONIN, DEFINED THE 99TH PERCENTILE OF cTnI DISTRIBUTION IN A REFERENCE POPULATION, HAS BEEN CONFIRMED THE DECISION THRESHOLD FOR PA DIAGNOSIS. Performed By: #### C BC #### [facility] [address] [place], [place] [address] Dr. Sruthi Arechiga TSHon 2022 TSH 3.865 uIU/mL Critically high 0.358-3.740 [facility] Comment on above: Performed By: #### T SH, LIPA, BNP, CMADM ####[facility] [id number] [place], [place] [address]WzDr. Sruthi Arechiga UFH HEPARIN ASSAYon 06-28-20 22 UNFRACTIONATED HEPARIN <0.10 Critically low 0.30-0.70 [facility] Comment on above: Order Comment: No: D [...] LMWH. Performed By: #### 3 [id number] #### [facility] [address] [place] [address], [facility] XR CHEST 1 Von 2022 XR CHEST [...] by: GERMAIN COY Date: 2022 06:58 Normal [facility] Vital Signs Date Time Vital Sign Value Performing Clinician Facility 12-11-2023 16:15-0500 Body height 157.5 cm Alexis Gilmore DPM Work Phone: [facility] 12-11-2023 16:15-0500 Body mass index (BMI) [Ratio] 29.26 kg/m2 Alexis Gilmore DPM Work Phone: [facility] 12-11-2023 16:15-0500 Body weight 72.58 kg Alexis Gilmore DPM Work Phone: [facility] 12-11-2023 16:15-0500 Diastolic blood pressure 80 mm[Hg] Alexis Gilmore DPM Work Phone: [facility] 12-11-2023 16:15-0500 Heart rate 77 /min Alexis Gilmore DPM Work Phone: [facility] 12-11-2023 16:15-0500 Systolic blood pressure 130 mm[Hg] Alexis Gilmore DPM Work Phone: [facility] 02-19-2023 10:30-0400 Body height 157.48 cm Sabrina Solanokervin Other [employer] Other 02-19-2023 10:30-0400 Body mass index (BMI) [Ratio] 28.35 kg/m2 Sabrina Solanokervin Other [employer] Other 02-19-2023 10:30-0400 Body temperature 97.8 [degF] Sabrina Suha Other [employer] Other 02-19-2023 10:30-0400 Body weight 70.31 kg Sabrina Borden Other [employer] Other 02-19-2023 10:30-0400 Diastolic blood pressure 64 mm[Hg] Sabrina Borden Other [employer] Other 02-19-2023 10:30-0400 SaO2% (BldA) [Mass fraction] 95 % Sabrina Borden Other [employer] [facility] [employer] Other 02-19-2023 10:30-0400 Systolic blood pressure 112 mm[Hg] Sabrina Borden Other [facility] [employer] Other 01-13-2023 16:30-0500 Diastolic blood pressure 57 mm[Hg] II Nik Bell Work Phone: [facility] 01-13-2023 16:30-0500 Heart rate 63 /min II Nik Bell Work Phone: [facility] 01-13-2023 16:30-0500 Respiratory rate 16 /min II Nik Bell Work Phone: [facility] 01-13-2023 16:30-0500 SaO2% (BldA) [Mass fraction] 95 % II Nik Bell Work Phone: [facility] 01-13-2023 16:30-0500 Systolic blood pressure 123 mm[Hg] II Nik Bell Work Phone: [facility] 01-13-2023 14:00-0500 Inhaled oxygen flow rate 2 L/min II Nik Bell Work Phone: [facility] 01-13-2023 11:42-0500 Body height 157.48 cm II Nik Bell Work Phone: [facility] 01-13-2023 11:42-0500 Body weight 68.49 kg II Nik Bell Work Phone: [facility] 01-09-2023 08:30-0500 Body height 157.48 cm Geo Mathew Other [employer] Other 01-09-2023 08:30-0500 Body mass index (BMI) [Ratio] 28.35 kg/m2 Geo Mathew Other [employer] Other 01-09-2023 08:30-0500 Body temperature 97.8 [degF] Geo Mathew Other [employer] Other 01-09-2023 08:30-0500 Body weight 70.31 kg Geo Mathew Other [employer] Other 01-09-2023 08:30-0500 Diastolic blood pressure 68 mm[Hg] Geo Mathew Other [employer] Other 01-09-2023 08:30-0500 SaO2% (BldA) [Mass fraction] 95 % Geo Mathew Other [employer] Other 01-09-2023 08:30-0500 Systolic blood pressure 112 mm[Hg] Geo Mathew Other [employer] Other 09-20-2021 13:00-0500 Body height 157.48 cm Geo Mathew Other [employer] Other 09-20-2021 13:00-0500 Body mass index (BMI) [Ratio] 31.09 kg/m2 Geo Mathew Other [employer] Other 09-20-2021 13:00-0500 Body weight 77.11 kg Geo Mathew Other [employer] Other 09-20-2021 13:00-0500 Diastolic blood pressure 69 mm[Hg] Geo Wisdomimelda Other [employer] Other 09-20-2021 13:00-0500 Systolic blood pressure 158 mm[Hg] Geo Wisdomimelda Other [employer] Other Encounters Encounter Date Encounter Type Care Provider Facility Start: 01-15-2024 End: 01-15-2024 ambulatory ALEXIS GILMORE Not Available Start: 01-05-2024 End: 01-05-2024 ambulatory ALEXIS GILMORE Not Available Start: 12-19-2023 ambulatory ANABELLE RICH [facility] Start: 12-15-2023 End: 12-15-2023 ambulatory NIK BELL Not Available Start: 12-11-2023 End: 12-11-2023 ambulatory ALEXIS GILMORE Not Available Start: 12-11-2023 End: 12-11-2023 Office outpatient visit 15 minutes Alexis Gilmore DPM Work Phone: [facility] Comment on above: Diabetes mellitus du e to underlying condition with diabetic polyneuropathy, unspecified whether termite treater helper insulin use (CMS/[facility]) (Primary Dx); PVD (peripheral vascular disease) (CMS/HCC); Dry gangrene (CMS/HCC); Foot ulcer, left, with fat layer exposed ([facility]/HCC) Start: 12-05-2023 Evaluation and management of inpatient [facility] Start: 12-04-2023 Evaluation and management of inpatient [facility] Start: 12-04-2023 Evaluation and management of inpatient [facility] Start: 12-03-2023 Evaluation and management of inpatient [facility] Start: 12-03-2023 End: 12-05-2023 Evaluation and management of inpatient [facility] Start: 11-27-2023 End: 11-27-2023 ambulatory ALEXIS GILMORE Not Available Start: 02-19-2023 End: 02-19-2023 Patient encounter procedure Sabrina Borden [facility] Start: 02-19-2023 End: 02-19-2023 ambulatory MONSE Bell Work Phone: [employer] Other Start: 01-31-2023 End: 01-31-[address] INK BELL Facility:[facility] Start: 01-13-2023 End: 01-13-2023 ambulatory Geo Mathew Facility:[facility] Start: 01-13-2023 End: 01-13-2023 Admission to same day surgery center II Nik Bell Work Phone: [facility] Work Phone: Start: 01-13-2023 End: 01-13-2023 ambulatory MONSE Bell Work Phone: [facility] Work Phone: Start: 01-09-2023 End: 01-09-2023 ambulatory Geo Mathew Other [employer] Other Start: 01-09-2023 Office outpatient ne w 60 minutes Geo Mathew [facility] Start: 12-30-2022 End: 12-31-2022 ambulatory ALEXIS GILMORE Facility:[facility] Start: 11-12-[address] DOCTOR CHAN Facility :[facility] Start: 08-17-2022 End: 08-18-[address] PANCHITO CHACON Facility:[facility] Start: 07-21-2022 End: 07-21-[address] NIK BELL Facility:[facility] Start: 07-04-2022 End: 07-07-[address] NIK BELL Facility:[facility] Start: 06-29-2022 End: 07-03-2022 Evaluation and management of inpatient CHASE TAJ Facility:[facility] Start: 2022 End: [address] NIK BELL Facility:[facility] Start: 02-15-[address] NIK BELL Facilit y:[facility] Start: 09-20-2021 End: 09-20-2021 ambulatory Geo Mathew Other [employer] Other Start: 09-20-2021 Office outpatient vi sit 15 minutes Geo Mathew [facility] Procedures Date Procedure Procedure Detail Performing Clinician Start: 06-04-2023 H/O: hysterectomy History of hysterectomy Alexis Gilmore D PM Work Phone: Start: 01-13-2023 Lower limb angiography II Nik Bell Work Phone: Start: 08-23-2020 Mammography Alexis Gilmore DPM Work Phone: Plan of Treatment Date Care Activity Detail Author Start: 03-03-2024 Hemoglobin A1c measurement Diabetes: Hemoglobin A1C [facility] Start: 02-05-2024 End: 02-05-2024 Patient encounter procedure 02/05/2024 10:10 AM EDT Office Visit [facility] [address] [facility] [address] [place] [address] Alexis Gilmore, DPM [address] [facility] [address] [place] [address] [facility] Start: 12-15-2023 End: 12-15-2023 Patient encounter procedure 12/15/2023 2:30 PM EST Office Visit [facility] [address] [facility] [address] [place] [address] Nik Bell MD [address] [facility] [address] [place] [address] [facility] Start: 07-11-2023 Influenza vaccination Influenza Vaccine (#1) [facility] Start: 01-13-2023 [facility] Start: 01-09-2022 Glaucoma screening Diabetes: Retinopathy Screening [facility] Start: 10-06-2021 Pneumococcal Vaccine: 65+ Years (2 - PCV) Pneumococcal Vaccine: 65+ Years (2 - PCV) [facility] Start: 08-23-2021 Screening for malignant neoplasm of breast Mammogram [facility] Start: 01-17-2021 Urine screening for protein Diabetes: Urine Protein Screening [facility] Start: 1955 Medicare Annual Wellness (AWV) Medicare Annual Wellness (AWV) [facility] Patient Education Peripheral Art ansley Disease and Claudication Peripheral Vascular (Arterial) Disease (DC) [facility] Work Phone: Patient referral [facility] Work Phone: Immunizations Immunization Date Immunization Notes Care Provider Fa cili 08-28-2022 Influenza, High-dose Seasonal, Quadrivalent, Preservative Free Alexis Gilmore DPM Work Phone: [facility] 08-28-2022 influenza virus vacc ine, unspecified formulation Alexis Dillon DPM Work Phone: [facility] 09-05-2021 Influenza, Seasonal, Quadrivalent, Adjuvanted Alexis Dillon DPM Work Phone: [facility] 10-06-2020 influenza, injectabl e, quadrivalent, preservative free Alexis Brown DPM Work Phone: [facility] 10-06-2020 pneumococcal polysaccharide vaccine, 23 valent Alexis Brown DPM Work Phone: [facility] 10-05-2020 influenza, high dose seasonal, preservative-free Alexis Brown DPM Work Phone: [facility] 08-10-2019 influenza, high dose seasonal, preservative-free Alexis Brown DPM Work Phone: [facility] 08-25-2018 seasonal influenza, intradermal, preservative free Alexis Brown DPM Work Phone: [facility] 09-24-2017 seasonal influenza, intradermal, preservative free Alexis Brown DPM Work Phone: [facility] 09-25-2016 influenza, injectabl e, quadrivalent, preservative free Alexis Brown DPM Work Phone: [facility] 09-25-2016 pneumococcal polysaccharide vaccine, 23 valent Alexis Brown DPM Work Phone: [facility] 10-02-2015 seasonal influenza, intradermal, preservative free Alexis Gilmore DPM Work Phone: [facility] 10-27-2014 influenza, injectabl e, quadrivalent, preservative free Alexis Gilmore DPM Work Phone: [facility] Payers Date Payer Category Payer Unknown BCBS BCBS [id number] 2022-Present [phone] [address] [place] [address] [id number] 2015 Medicare MEDICARE MEDICAR E PART B [id number] 2015-Present [address] [address] [place] [address] Medicare [id number] 1959 Medicare [id number] 1959 Self-pay [id number] 1959 Unknown [id number]. [id number] 1959 Unknown [id number] 1954 Unknown [id number] [id number] 1954 Unknown [id number] [id number] 1954 Unknown [id number] 2.16.840.1.975112.3.579.2.593 1954 Unknown [id number] 2.16.840.1.987203.3.579.2.593 1954 Unknown [id number] 2.16.840.1.732963.3.579.2.593 1954 Unknown [id number] 2.16.840.1.345204.3.579.2.593 1954 Unknown [id number] 2.16.840.1.108863.3.579.2.593 1954 Unknown [id number] 2.16.840.1.462731.3.579.2.593 1954 Unknown [id number] 2.16.840.1.471904.3.579.2.593 1954 Unknown [id number] 2.16.840.1.003306.3.579.2.1259 1954 Unknown [id number] 2.16.840.1.872254.3.579.2.1259 1954 Unknown [id number] 2.16.840.1.531163.3.579.2.1259 1954 Unknown [id number] 2.16.840.1.469956.3.579.2.1259 1954 Unknown [id number] 2.16.840.1.296483.3.579.2.1259 Unknown [id number] 2.16.840.1.659796.3.579.2.531 Unknown [id number] [id number] Social History Date Type Detail Facility Start: 12-11-2023 [facility] Assigned At [facility] [employer] Other Start: 01-13-2023 End: 06-12-2023 Tobacco smoking status [facility] Never smoked tobacco (finding) [facility] Start: 1955 Sex Assigned At Female F [facility] Start: 12-11-2023 Alcohol intake Lifetime non-d maren [...] She is continuing wound care with her paediatric physiotherapist. Denies any significant pain or pulsatility to [...] for this visit: PAD (peripheral artery disease) ([facility]) -Patient with reperfusion edema to the right [...] past 36 hour(s)). No follow-ups on file. [facility] 12-11-2023 History of Present illness Narrative Patient: [...] left leg and patient was transferred to [facility] where she had it angioplasty procedure with increased blood flow noted by patient. She has a type 2 diabetic and presents today for follow up in office. Allergies: Allergies Allergen Reactions Penicillins Hives childhood-swelling Past Medical History: Past Medical History: Diagnosis Date A-fib ([facility]) 2022 with RVR Anxiety Aortic stenosis 06/2022 Carotid artery disease ([facility]) CHF (congestive heart failure) ([facility]) 06/2022 Colon polyp 2016 Diverticulitis DM (diabetes mellitus) ([facility]) HLD (hyperlipidemia) ([facility]) HTN (hypertension) ([facility]) PA (myocardial infarction) ([facility]) NSTEMI, initial episode of care ([facility]) 2022 Medications: Current Outpatient Medications: amLODIPine (Norvasc) [...] positive edema to left foot NEURO: 5.07 [place] Tru[place] monofilament test diminished to digits and forefoot bilaterally 125Hz tuning fork diminished to 1st MPJ bilaterally ORTHO: Minimal pain on palpation to left foot ulcer BRIDGER PVR non readable findings to the left with non pulsatile flow and right of 0.53 DP ASSESSMENT 1. Diabetes mellitus due to underlying condition with diabetic polyneuropathy, unspecified whether intermediate insulin use ([facility]) 2. PVD (peripheral vascular disease) ([facility]) 3. Dry gangrene ([facility]) 4. Foot ulcer, left, with fat layer exposed ([facility]) PLAN Sharp debridement with 15 blade of subcutaneous ulceration to left foot with active bleeding noted and removal and excision of fibrotic and necrotic tissue to wound and DSD applied with neosporin. Pt to continue with Betadine daily Reviewed BRIDGER PVRs and patient is to follow up with [facility] for right foot in near future and continue with wound care until follow up in 1 week Alexis Gilmore DPM documented in this encounter [facility] 12-05-2023 Note Hospital Medicine Discharge Summary Final Discharge Diagnosis: # critical limb ischemia , right lower extremity # lower extremity claudication, bilateral # nonoliguric EVA # Atrial fibrillation on Eliquis # coronary artery disease status post CABG # uncontrolled diabetes mellitus type 2 # Hyponatremia Admission Diagnosis: Hyponatremia [E87.1] PAD (peripheral artery disease) ([facility]) [I73.9] Numbness of left lower extremity [R20.0] [...] December 05, 2023. Dear Dr. Ray MD, Marlette is advised to follow up with you within 1-2 weeks. Follow-up with: Vascular Surgery Scheduled appointments: Future Appointments Date Time Provider Department Center 12/19/2023 11:00 AM [facility] Your medication list START taking these [...] Your Medications These medications were sent to [id number] - [address] AT [address] [address] clopidogrel 75 mg tablet oxyCODONE-acetaminophen 5-325 mg [...] and care-team, med- (more content not included)... [facility] 12-05-2023 Note [facility] Vascular Surgery DAILY PROGRESS NOTE Subjective No [...] be discharged once the ultrasound is done. [facility] 12-05-2023 Note Clinical Nutrition A ssessment: Name: Marimar Patel Room: [address] [place] [address] Date: 1955 Date of Visit: 12/05/23 Admission Dx: Hyponatremia [E87.1] PAD (peripheral artery disease) ([facility]) [I73.9] Numbness of left lower extremity [R20.0] Reason for assessment: high risk Information obtained from: patient, medical record, and nursing Past Medical History: Diagnosis Date A-fib ([facility]) Aortic valve stenosis Coronary artery disease Diabetes mellitus ([facility]) Hypertension Peripheral vascular disease ([facility]) Current Medications: aspirin, 81 mg, oral, Daily [...] 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 Pt [...] ideal body weight (50 kg) Calorie needs: 4300-3113 kcals/day based on Equation: 25-30 kcal/kg Protein [...] Academy of Nutrition and Dietetics, and the [place] [employer] of Enteral and Parenteral Nutrition to suppo (more content not included)... [facility] 12-05-2023 Note Occupational Therapy Occupational Therapy Evaluation [...] aortic valve stenosis Coronary artery disease involving [place] coronary artery of [place] heart with angina pectoris ([facility]) PAF (paroxysmal atrial fibrillation) ([facility]) Essential hypertension PAD (peripheral artery disease) ([facility]) Numbness of left lower extremity Past Medical History: Diagnosis Date A-fib ([facility]) Aortic valve stenosis Coronary artery disease Diabetes mellitus ([facility]/HCC) Hypertension Peripheral vascular disease ([facility]) Past Surgical History: Procedure Laterality Date APPENDECTOMY [...] Level of Function Prior Function Level of Metter: Independent with ADLs and functional transfers Prior [...] Sensation Light T (more content not included)... [facility] 12-04-2023 Note Patient: Marimar mccain Procedure Summary Date: 12/04/23 Room / Location: [address] / [facility] Operating Room Anesthesia Start: 1350 Anesthesia Stop: 1625 Procedures: LEFT LOWER EXTREMITY ANGIOGRAM (Left) AORTOGRAM LEFT LOWER EXTREMITY JETSTREAM AND ATHERECTOMY/THROMBECOMY LEFT LOWER EXTREMITY DRUG COATED BALLOON ANGIOPLASTY OF SFA AND POLITEAL ARTERIES LEFT LOWER EXTREMITY DISTAL SFA AND POPLITEAL COVERED STENTING Diagnosis: PAD (peripheral artery disease) (CMS/HCC) (PAD (peripheral artery disease) (CMS/[facility]) [I73.9]) Surgeons: Jennifer Vaca MD Responsible Provider: [...] per anesthesia protocol. No notable events documented. [facility] 12-04-2023 Note Patient: Marimar mccain Procedure Summary Date: 12/04/23 Room / Location: [facility] OR [address] [place] [address] Operating Room Anesthesia Start: 1350 Anesthesia Stop: Procedures: LEFT LOWER EXTREMITY ANGIOGRAM (Left) AORTOGRAM LEFT LOWER EXTREMITY JETSTREAM AND ATHERECTOMY/THROMBECOMY LEFT LOWER EXTREMITY DRUG COATED BALLOON ANGIOPLASTY OF SFA AND POLITEAL ARTERIES LEFT LOWER EXTREMITY DISTAL SFA AND POPLITEAL COVERED STENTING Diagnosis: PAD (peripheral artery disease) (CMS/HCC) (PAD (peripheral artery disease) ([facility]) [I73.9]) Surgeons: Jennifer Vaca MD Responsible Provider: Charlene Jimenez MD Anesthesia Type: general ASA Status: 3 Anesthesia Post Transport Note Transport to: PACU O2 Route: face mask Oxygen Flow (L/min): 8 Patient Monitor: direct observation Transport: uneventful Patient condition is: stable [facility] 12-04-2023 Note Patient: Marimar mccain Procedure Information Anesthesia Start Date/Time: 12/04/23 1350 Procedure: Lower extremity angiogram (Left) - LLE angiogram possible intervention Location: [facility] OR [address] / [facility] Operating Room Surgeons: Jennifer Vaca MD Relevant Problems Cardio (+) Coronary artery disease involving [place] coronary artery of [place] heart with angina pectoris ([facility]) (+) Essential hypertension (+) Nonrheumatic aortic valve stenosis (+) PAD (peripheral artery disease) ([facility]) (+) PAF (paroxysmal atrial fibrillation) ([facility]) Clinical information reviewed: Tobacco Allergies Meds Problems [...] Plan discussed with attending. Additional Equipment Requests [facility] 12-04-2023 Note Airway Date/Time: 12/04/2023 1:58 PM Urgency: elective Airway not difficult General Information and Staff Patient location during procedure: OR Anesthesiologist: Charlene Jimenez MD Resident/DOULA/CAA: Deep Bolton CRNA Performed: resident/DOULA/CAA Indications and Patient Condition Indications for airway [...] Additional Comments 4ml 4% lidocaine lta utilized [facility] 12-04-2023 Note Hospital Medicine Daily Progress Note - 12/04/2023 12:06 PM; Room: [address] [place] [address] Admission: 12/03/2023 4:20 PM; Length of stay: 1 days THE HOSPITALIST TEAM PREFERS TO USE [employer] FOR COMMUNICATION 7AM-7PM. IF I DO NOT RESPOND WITHIN 15 MINUTES, PLEASE PAGE ME/CALL THROUGH THE HORTICULTURAL FARMWORKER. FROM 7PM-7AM, PLEASE PAGE [phone](COVR) Code Status: Full Code Barriers to Discharge: [...] extremity Active Problems: PAD (peripheral artery disease) ([facility]) Assessment and Plan 1. Right lower extremity [...] LDL 195 2022 No results found for: [id number] , IRON , TIBC , C3 , [...] Does the pa (more content not included)... [facility] 12-03-2023 Note Pharmacy completed a medication reconciliation for Marimar Patel. Patient is a 68 y.o. year old female, 1.575 m (5' 2 ) cm, 72.6 kg (160 lb) kg, CrCl= Estimated Creatinine Clearance: 29.5 mL/min (A) (by C-G formula based on SCr of 1.68 mg/dL (H)). mL/minute. Patient has allergies to: Penicillin and Penicillins . Pt fills at [facility] [phone]. Medication list was obtained from patient's fill history list and patient (pt stated that her knows the medication better but he is not in the room). Home medication list has been updated. Please call pharmacy with any questions. Thank you! Confirmed that patient was doing basaglar 80 units at night (Rx said 86 units) Thanks, [facility] Fiona Nash, PharmD, 12/03/23 [facility] 12-03-2023 Note 12/03/232003 Financial Resource Strain How [...] place to sleep or slept in a penitentiary (including now)? N Transportation Needs In the [...] than 3 How often do you attend protestant or mu-ism services? Never Do you belong to any clubs or organizations such as protestant groups, unions, fraternal or athletic groups, or [...] home? 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 Referral Reason Psychosocial assessment Patient Information Primary Caregiver Self Accompanied by/Relationship Activities of Daily Living Assistive Device Cane;Walker (Uses sometimes) Living Arrangement (Current/Prior to Hospitalization) Private residence (Lives at home with and son) Ambulation Minimum assistance (Uses walker or cane sometimes) Dressing Independent Feeding Independent Behavior Oriented Communication Can write;Talks;Understands speaking;Understands Persian;Reads Income Information Income Source Unemployed Discharge Planning [...] system as her friends, her , her [id number], and her son. Patient endorsed that she [...] past year and denied any alcohol consumption. [facility] 02-19-2023 Evaluation note Encounter Date Diagnosis Assessment [...] office sooner with any issues or concerns. [employer] Other 03-24-2023 NotePROCEDURE: XR WRIST LT MIN 3 V HISTORY: Pain after falling COMPARISON: None. FINDINGS: BONES:No fracture, acute abnormality, or significant arthropathy. SOFT TISSUES:Multiple skin jose within soft tissues lateral to the distal forearm. EFFUSION:None visible. OTHER: Negative. IMPRESSION: 1. No acute bone abnormality. 2. Multifocal mild degenerative joint disease. Electronically authenticated by: GERMAIN COY Date: 2023-01-31 13:10[id number] Evaluation note* Encounter Date Diagnosis Assessment [...] clinical exam. I do not have the [place] studies yet. We will reach out to [...] was obtained all her questions were addressed. [employer] Other 08-25-2022 NoteMR#: [id number] I [facility] Pt. Name: Marimar Patel Admitted: 2022 Discharged: [...] Amaya MD Date Trans: 07/03/2022 11:43 P/abdiaziz [id number] cc: Nik Bell M.D. [address] [place] [id number]* Encounter Date Diagnosis Assessment Notes [...] plan all of her questions were addressed. [employer] Other Evaluation noteNo assessment information available [facility] Work Phone: Evaluation note* Diagnosis Diabetes mellitus due to underlying condition with diabetic polyneuropathy, unspecified whether intermediate insulin use (CMS/HCC)- Primary PVD (peripheral vascular disease) (CMS/HCC) Unspecified peripheral vascular disease Dry gangrene (CMS/HCC) Foot ulcer, left, with fat layer exposed ([facility]/HCC) documented in this encounter [facility] Narrative - Reported* Type Description Date Medical History carotid stenosis Medical History diverticulitis Medical History PA Medical History DM Medical History hyperlipidemia Medical History HTN Surgical History cholecystectomy Surgical History tonsillectomy Surgical History CABGx2 Surgical History hernia repair Surgical History appendectomy Surgical History quad bypass 2012 Hospitalization History see surgical hx [employer] Other History general Narrative - Reported* Type Description Date Medical History carotid stenosis Medical History diverticulitis Medical History PA Medical History DM Medical History hyperlipidemia Medical History HTN Surgical History cholecystectomy Surgical History tonsillectomy Surgical History CABGx2 Surgical History hernia repair Surgical History appendectomy Surgical History quad bypass 2012 Surgical History Cardiac Stent 2022 Hospitalization History see surgical hx [employer] Other Summary Purpose Family History No Family [...] and content) DATE CREATED AUTHOR 07/13/2022 [facility] DATE CREATED AUTHOR AUTHOR'S ORGANIZ ATION 02/04/2023 [facility] DATE CREATED AUTHOR AUTHOR'S ORGANIZ ATION 03/01/2023 [facility] DATE CREATED AUTHOR AUTHOR'S ORGANIZ ATION 01/08/2024 [facility] DATE CREATED AUTHOR AUTHOR'S ORGANIZ ATION 01/16/2024 [facility] Care Teams (unrecognized sec tion and content) Team Status: Active Member Role Status Dates Nik Bell II MD Primary Care Provider Active Team Status: Inactive Member Role Status Dates Nik Bell II MD Primary Care Provider Active Geo Mathew MD Attending Provider Active [employer]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 [employer] provides no warranty or guarantee of the accuracy or completeness of information in this document.
[2024-02-08 17:44] LABS: Glucometer 343 mg/dL (74-106)
[2024-02-08] MEDS: INSULIN ASPART 300 UNIT/3 ML PEN SUBQ ×2 (17:46→22:01)
[2024-02-08] MEDS: 0.9 % SODIUM CHLORIDE 1,000 ML 100 ML IV (17:47)
[2024-02-08 19:57] LABS: Glucometer 200 mg/dL (74-106)
[2024-02-08] MEDS: LEVOFLOXACIN IN DEXTROSE 5 % 750 MG/150 ML IV.SOLN 100 MG IV (20:10)
[2024-02-08] MEDS: PANTOPRAZOLE SODIUM 40 MG VIAL IV (20:10)
[2024-02-08] MEDS: ATORVASTATIN CALCIUM 40 MG TABLET 80 MG PO (20:12)
[2024-02-08] MEDS: APIXABAN 5 MG TABLET PO (20:12)
[2024-02-08] MEDS: ACETAMINOPHEN 500 MG TABLET 1000 MG PO (20:12)
[2024-02-08] MEDS: ENSURE HP 237 ML LIQUID PO (20:13)
[2024-02-08] MEDS: CEFTRIAXONE 1,000 MG in 0.9 % SODIUM CHLORIDE 50 ML 100 MG IV (22:00)
--- NOTE | 2024-02-08 22:47 | PC.NURSE ---
UP to void. Urine cloudy yellow. Pt uses a walker to get back to bed. Gait is more steady with walker
[2024-02-09] VITALS (12 sets, daily range): BP systolic 116–158; BP diastolic 48–62; PULSE 57–67; TEMP 36.6–37.1; O2SAT 92–96
[2024-02-09 00:40] LABS: Bilirubin Urine NEGATIVE (NEGATIVE); Blood Urine NEGATIVE (NEGATIVE); Clarity Urine CLEAR (CLEAR); Color Urine LT. YELLOW (YELLOW); Glucose Urine UA NEGATIVE (NEGATIVE); Ketones Urine NEGATIVE (NEGATIVE); Leukocyte Esterase Urine MODERATE (NEGATIVE); Nitrite Urine NEGATIVE (NEGATIVE); Protein Urine NEGATIVE (NEG/TRACE); Urobilinogen Urine 0.2 EU/dL (0.2-1.0); pH Urine 5.5 (5.0-9.0)
[2024-02-09 00:47] LABS: Amorphous Sediment Urine FEW; Bacteria Urine TRACE #/HPF (NONE SEEN); Cast Seen? NONE SEEN #/LPF (NONE SEEN); Crystals Seen? None Seen #/HPF (None Seen); Mucus Urine NONE SEEN (NONE SEEN); RBC Urine NONE SEEN #/HPF (0-2); Squamous Epithelial Cell Urine RARE #/LPF (NONE/RARE); WBC Urine 20-50 #/HPF (NONE SEEN)
[2024-02-09 00:48] LABS: Urine Culture Indicated YES
[2024-02-09] MEDS: ACETAMINOPHEN 500 MG TABLET 1000 MG PO (04:02)
[2024-02-09 05:40] LABS: Basophils Percent Auto 0.3 % (0.2-2.0); Eosinophils Absolute Auto 0.2 10^3/uL (0.0-0.7); Eosinophils Percent Auto 1.3 % (0.9-7.0); Hemoglobin 7.6 g/dL (12.0-16.0); Immature Granulocytes Abs Auto 0.55 10^3/uL (0.00-0.03); Immature Granulocytes Pct Auto 4.8 % (0.0-0.5); Lymphocytes Absolute Auto 2.2 10^3/uL (1.2-3.8); Lymphocytes Percent Auto 18.7 % (20.5-60.0); Mean Corpuscular HGB Conc 32.2 g/dL (29.9-35.2); Mean Corpuscular Volume 87.1 fL (81.0-99.0); Mean Platelet Volume 10.9 fL (9.5-13.5); Monocytes Absolute Auto 0.9 10^3/uL (0.3-0.8); Monocytes Percent Auto 7.5 % (1.7-12.0); Neutrophils Absolute Auto 7.8 10^3/uL (1.4-6.5); Neutrophils Percent Auto 67.4 % (43.0-75.0); Platelet Count 228 10^3/uL (150-450); Red Blood Count 2.71 10^6/uL (4.20-5.40); White Blood Count 11.5 10^3/uL (4.0-11.0)
[2024-02-09 05:59] LABS: Hematocrit 23.6 % (36.0-48.0)
[2024-02-09 06:07] LABS: Alanine Aminotransferase 51 U/L (14-59); Albumin Globulin Ratio 0.5; Albumin Level 1.7 g/dL (3.4-5.0); Alkaline Phosphatase 80 U/L (46-116); Aspartate Amino Transferase 20 U/L (15-37); BUN Creatinine Ratio 37.1; Bilirubin Total 0.2 mg/dL (0.2-1.0); Calcium 7.5 mg/dL (8.5-10.1); Carbon Dioxide 18.2 mmol/L (21.0-32.0); Chloride 99 mmol/L (98-107); Estimated GFR (African America 36 (>=60); Estimated GFR (Non-African Ame 30 (>=60); Globulin 3.5 g/dL; Glucose 195 mg/dL (74-106); Magnesium 2.2 mg/dL (1.8-2.4); Potassium 4.2 mmol/L (3.5-5.1); Sodium 129 mmol/L (136-145); Total Protein 5.2 g/dL (6.4-8.2)
[2024-02-09 07:27] LABS: Glucometer 204 mg/dL (74-106)
[2024-02-09] MEDS: INSULIN ASPART 300 UNIT/3 ML PEN SUBQ ×2 (07:33→12:03)
--- NOTE | 2024-02-09 09:24 | CM.NOTE ---
Rounds made with Dr. Willard, discussed with pt possible discharge to home this afternoon. PT and OT will evaluate pt for discharge needs. Pt does ask about getting walker for home use, notifed SW.
--- NOTE | 2024-02-09 09:26 | P.DS_ITS ---
DS: Providers Provider Date of admission: 02/08/24 16:25 Primary care physician: CHAMP CHRISTENSEN Consults: 02/08/24 14:34 Consult to Pharmacy Routine Consulting Provider: Reason for consultation: Please [place] me when Med Rec is Updated Has provider been notified: No Occupational Therapy Eval and Treat Routine Reason for consultation: Only if needed for Rehab Has provider been notified: No Physical Therapy Eval and Treat Routine Reason for consultation: Eval and Treat Has provider been notified: No DS: Diagnosis Discharge Diagnosis (1) Hypotension: Qualifiers: Hypotension type: unspecified hypotension type Qualified Code(s): I95.9 - Hypotension, unspecified Plan Bradycardia, severe hypotension with blood pressure 68/30 documented in the emergency room after some fluid resuscitation and already begun, that is overall improving, also with leukocytosis, acute renal failure(previous creatinine was 0.98, current creatinine is 2.26 for an approximate acute renal failure of 226% of her baseline), hypomagnesemia, elevated liver function tests-this is possibly secondary to acute UTI. UA is pending. Could be just dehydration with gastroenteritis. Will check amylase and lipase also because she had left upper quadrant abdominal tenderness History of coronary artery disease-no chest pain-if lactate is positive would be unable to give extensive rapid fluid resuscitation due to history of coronary artery disease. Hypomagnesemia-follow daily Elevated liver function test-possibly related to the acute gastroenteritis, again checking amylase and lipase Moderate protein calorie malnutrition-diet supplement Insulin-dependent diabetes mellitus now with hypoglycemia, will hold long-acting and use just sliding scale insulin Depression-continue with home medications Admission criteria: With all of the above potentially just related to dehydration, will start fluid resuscitation, check other labs, will start patient off as observation status depending how labs come back may need to be changed to inpatient status with medically necessary treatment possibly spanning 2 midnights. ? DS: Summary Hospital Course Hospital Course: Patient admitted to observation bed due to acute renal failure and acute UTI, given IV fluid resuscitation and IV antibiotics. She felt much improved today. Plan will be if she is active and ambulating without significant difficulties, no weakness, no hypoxia, she will be discharged home in improving condition. Medications see list. Her leukocytosis is improving her hemoglobin is down 2.3 g we will repeat that later in the day and that was stable today actually slightly improved. Hyponatremia persisting but that can be followed as an outpatient. Acute renal failure overall improved. (previous creatinine was 0.98, adm,ission creatinine is 2.26 for an approximate acute renal failure of 226% of her baseline) Time Spent with Patient Time attestation: Total time spent providing and/or coordinating discharge services: Exam Constitutional Vital Signs, click to edit/add: Last Vital Signs Temp 98.7 F 02/09/24 07:55 Pulse 67 02/09/24 08:00 Resp 16 02/09/24 07:55 BP 158/48 H 02/09/24 07:55 Pulse Ox 96 02/09/24 07:55 O2 Del Method Room Air 02/09/24 07:55 Documenting provider has reviewed patient's vital signs: yes Common normals: no apparent distress Chest Common normals: inspection of chest normal Respiratory Common normals: normal respiratory effort, no retractions and clear to auscultation bilaterally GI Common normals: Normal to inspection, nondistended, normoactive bowel sounds present and soft to palpation; tender Palpation: tender (Epigastric and left upper quadrant) Extremity Common normals: normal to inspection, full ROM, normal capillary refill and no clubbing, cyanosis or edema DS: Data Data Completed and Pending Labs on day of discharge: Labs from last 24 hours 02/09/24 02/09/24 02/09/24 07:25 05:18 00:27 WBC 11.5 H RBC 2.71 L Hgb 7.6 L Hct 23.6 L* MCV 87.1 MCH 28.0 MCHC 32.2 RDW 14.0 Plt Count 228 MPV 10.9 Neut % (Auto) 67.4 Lymph % (Auto) 18.7 L [place] % (Auto) 7.5 Eos % (Auto) 1.3 Baso % (Auto) 0.3 Neut # (Auto) 7.8 H Lymph # (Auto) 2.2 [place] # (Auto) 0.9 H Eos # (Auto) 0.2 Baso # (Auto) 0.0 Abs Immat Gran (auto) 0.55 H Seg Neuts % (Manual) Band Neutrophils % Lymphocytes % (Manual) Monocytes % (Manual) Eosinophils % (Manual) Basophils % (Manual) Imm/Tot Granulo (auto) 4.8 H Neutrophils # (Manual) Band Neutrophils # Lymphocytes # (Manual) Monocytes # (Manual) Eosinophils # (Manual) Basophils # (Manual) Sodium 129 L Potassium 4.2 Chloride 99 Carbon Dioxide 18.2 L Anion Gap 16.0 BUN 63.0 H Creatinine 1.70 H Est GFR ( Amer) 36 L Est GFR (Non-Af Amer) 30 L BUN/Creatinine Ratio 37.1 Glucose 195 H Lactate Calcium 7.5 L Magnesium 2.2 Total Bilirubin 0.2 AST 20 ALT 51 Alkaline Phosphatase 80 Troponin I High Sens NT-Pro-B Natriuret Pep Total Protein 5.2 L Albumin 1.7 L Globulin 3.5 Albumin/Globulin Ratio 0.5 Amylase Lipase Urine Color Lt. yellow Urine Clarity Clear Urine pH 5.5 Ur Specific [place] 1.010 Urine Protein Negative Urine Glucose (UA) Negative Urine Ketones Negative Urine Occult Blood Negative Urine Nitrite Negative Urine Bilirubin Negative Urine Urobilinogen 0.2 Ur Leukocyte Esterase Moderate A Urine RBC None seen Urine WBC 20-50 A Ur Squamous Epith Cells Rare Urine Crystals None seen Amorphous Sediment Few Urine Bacteria Trace A Urine Casts None seen Urine Mucus None seen Ur Culture Indicated? Yes POC Glucose 204 H 02/08/24 02/08/24 02/08/24 19:56 17:43 15:00 WBC RBC Hgb Hct MCV MCH MCHC RDW Plt Count MPV Neut % (Auto) Lymph % (Auto) [place] % (Auto) Eos % (Auto) Baso % (Auto) Neut # (Auto) Lymph # (Auto) [place] # (Auto) Eos # (Auto) Baso # (Auto) Abs Immat Gran (auto) Seg Neuts % (Manual) Band Neutrophils % Lymphocytes % (Manual) Monocytes % (Manual) Eosinophils % (Manual) Basophils % (Manual) Imm/Tot Granulo (auto) Neutrophils # (Manual) Band Neutrophils # Lymphocytes # (Manual) Monocytes # (Manual) Eosinophils # (Manual) Basophils # (Manual) Sodium Potassium Chloride Carbon Dioxide Anion Gap BUN Creatinine Est GFR ( Amer) Est GFR (Non-Af Amer) BUN/Creatinine Ratio Glucose Lactate 1.8 Calcium Magnesium Total Bilirubin AST ALT Alkaline Phosphatase Troponin I High Sens 20.2 NT-Pro-B Natriuret Pep 1615.0 H* Total Protein Albumin Globulin Albumin/Globulin Ratio Amylase 40 Lipase 54.0 Urine Color Urine Clarity Urine pH Ur Specific [place] Urine Protein Urine Glucose (UA) Urine Ketones Urine Occult Blood Urine Nitrite Urine Bilirubin Urine Urobilinogen Ur Leukocyte Esterase Urine RBC Urine WBC Ur Squamous Epith Cells Urine Crystals Amorphous Sediment Urine Bacteria Urine Casts Urine Mucus Ur Culture Indicated? POC Glucose 200 H 343 H 02/08/24 02/08/24 02/08/24 14:36 13:34 12:20 WBC 13.2 H RBC 3.56 L Hgb 9.9 L Hct 31.0 L MCV 87.1 MCH 27.8 MCHC 31.9 RDW 13.6 Plt Count 282 MPV 11.5 Neut % (Auto) Lymph % (Auto) [place] % (Auto) Eos % (Auto) Baso % (Auto) Neut # (Auto) Lymph # (Auto) [place] # (Auto) Eos # (Auto) Baso # (Auto) Abs Immat Gran (auto) Seg Neuts % (Manual) 67.0 Band Neutrophils % 2.0 Lymphocytes % (Manual) 16.0 L Monocytes % (Manual) 10.0 Eosinophils % (Manual) 5.0 Basophils % (Manual) 0.0 L Imm/Tot Granulo (auto) Neutrophils # (Manual) 8.84 H Band Neutrophils # 0.3 Lymphocytes # (Manual) 2.11 Monocytes # (Manual) 1.32 H Eosinophils # (Manual) 0.66 Basophils # (Manual) 0.00 Sodium 130 L Potassium 3.7 Chloride 96 L Carbon Dioxide 22.1 Anion Gap 15.6 BUN 80.0 H* Creatinine 2.26 H Est GFR ( Amer) 26 L Est GFR (Non-Af Amer) 21 L BUN/Creatinine Ratio 35.4 Glucose 73 L Lactate 1.9 Calcium 8.9 Magnesium 2.8 H Total Bilirubin 0.3 AST 29 ALT 81 H Alkaline Phosphatase 89 Troponin I High Sens 24.0 NT-Pro-B Natriuret Pep Total Protein 6.9 Albumin 2.5 L Globulin 4.4 Albumin/Globulin Ratio 0.6 Amylase Lipase Urine Color Urine Clarity Urine pH Ur Specific [place] Urine Protein Urine Glucose (UA) Urine Ketones Urine Occult Blood Urine Nitrite Urine Bilirubin Urine Urobilinogen Ur Leukocyte Esterase Urine RBC Urine WBC Ur Squamous Epith Cells Urine Crystals Amorphous Sediment Urine Bacteria Urine Casts Urine Mucus Ur Culture Indicated? POC Glucose 279 H 78 02/08/24 12:17 WBC RBC Hgb Hct MCV MCH MCHC RDW Plt Count MPV Neut % (Auto) Lymph % (Auto) [place] % (Auto) Eos % (Auto) Baso % (Auto) Neut # (Auto) Lymph # (Auto) [place] # (Auto) Eos # (Auto) Baso # (Auto) Abs Immat Gran (auto) Seg Neuts % (Manual) Band Neutrophils % Lymphocytes % (Manual) Monocytes % (Manual) Eosinophils % (Manual) Basophils % (Manual) Imm/Tot Granulo (auto) Neutrophils # (Manual) Band Neutrophils # Lymphocytes # (Manual) Monocytes # (Manual) Eosinophils # (Manual) Basophils # (Manual) Sodium Potassium Chloride Carbon Dioxide Anion Gap BUN Creatinine Est GFR ( Amer) Est GFR (Non-Af Amer) BUN/Creatinine Ratio Glucose Lactate Calcium Magnesium Total Bilirubin AST ALT Alkaline Phosphatase Troponin I High Sens NT-Pro-B Natriuret Pep Total Protein Albumin Globulin Albumin/Globulin Ratio Amylase Lipase Urine Color Urine Clarity Urine pH Ur Specific [place] Urine Protein Urine Glucose (UA) Urine Ketones Urine Occult Blood Urine Nitrite Urine Bilirubin Urine Urobilinogen Ur Leukocyte Esterase Urine RBC Urine WBC Ur Squamous Epith Cells Urine Crystals Amorphous Sediment Urine Bacteria Urine Casts Urine Mucus Ur Culture Indicated? POC Glucose 81 Discharge Plan Discharge Disposition: Home, Self-Care Discharge Medications: New levofloxacin 500 mg tablet 500 mg PO DAILY 10 Days Qty: 10 0RF Continued Eliquis 5 mg tablet 5 mg PO BID clopidogrel 75 mg tablet 75 mg PO DAILY lisinopril 20 mg tablet 20 mg PO DAILY atorvastatin 80 mg tablet 80 mg PO DAILY citalopram 20 mg tablet 20 mg PO DAILY Novolin R Regular U100 Insulin 100 unit/mL solution Patient Comments: SLIDING SCALE gabapentin 300 mg capsule 300 mg PO BID potassium chloride [Klor-Con M20] 20 mEq tablet,ER particles/crystals 20 meq PO BID Discontinued insulin glargine [Basaglar KwikPen U-100 Insulin] 100 unit/mL (3 mL) insulin pen 86 unit SUBCUT QPM carvedilol 25 mg tablet 37.5 mg PO BID amlodipine 10 mg tablet 10 mg PO DAILY hydralazine 100 mg tablet 100 mg PO TID spironolactone 25 mg tablet 25 mg PO DAILY Activity: ambulate only with your walker Print Language: [place] Citizen Patient Instructions: Acute Kidney Injury (DC) Forms: Portal Instructions Follow Up Appointments: Follow up Dr Christensen February 11 1pm. You will see the nurse practitioner Discharge Date/Time: 02/09/24 13:44
--- OUTSIDE RECORDS SUMMARY | 2024-02-09 09:44 | XMS_ITS | CCD ---
Author Organization [facility] Care Team Providers Care International Marketing Manager Name Role Phone Geo Mathew Unavailable CHASE [...] Geo Mathew Admitting UnavailGeo Ramirez Attending UnavailNik Agrueta Primary Care Unavailable Nik Bell MD Primary Care Provider [phone] NAJENNIFER MUSTAFA Referring Unavailable AURE, ANDREW Admitting [...] Facility (1 source) [facility] Other (5 sources) Penicillins; Translations: [PENICILLINS] Drug allergy (disorder) 09-20-2009 [facility] Repository (3 sources) Penicillin; Translations: [PENICILLIN] Drug Allergy 07-19-[address] [facility] Repository (1 source) Penicillins Drug allergy (disorder) 01-10-2023 [facility] Repository (2 sources) Penicillins Drug Allergy 10-28-2014 [facility] Medications Current Medications Medication Drug Class(es) [...] 2 diabetes mellitus with hyperglycemia, unspecified whether termite helper insulin use (CMS/HCC) INJECT 86 UNITS UNDER [...] 1 tablet Orally Once a day Not-Taking I-Apdtbyajbshu-I9-B1 2 3-35-2 MG (3 sources) take 1 tablet by mouth twice daily O-Ofhlamobxcmh-N3-B1 2 3-35-2 MG 1 tablet Orally Twice [...] disease (3 sources) 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; Translations: [Coronary atherosclerosis] Onset: 3 06-04-2023 Chronic Coronary atherosclerosis and other heart disease (2 sources) Coronary atherosclerosis and other heart disease; Translations: [Atherosclerosis of [place]mehuevi arteries of extremities with intermittent claudication, left [...] Onset: 2 Chronic Other aftercare (1 source) rodent exterminator (current) use of anticoagulants; Translations: [GRAPPLER CURRNT USE ANTICOAGULANTS] Onset: 3 Episodic Other aftercare (1 source) Other fpc (current) drug therapy; Translations: [OTH GRAPPLER CURRENT DRUG THERAPY] Onset: 3 Episodic Other aftercare (1 source) rodent exterminator (current) use of antithrombotics/antipl atelets; Translations: [GRAPPLER ANTITHROMBOT/ANTIPLATL ETS] Onset: 3 Episodic Other aftercare (1 source) rodent exterminator (current) use of insulin; Translations: [GRAPPLER CURRENT USE OF INSULIN] Onset: 3 Episodic Other aftercare (1 source) rodent exterminator (current) use of aspirin; Translations: [GRAPPLER CURRENT USE OF ASPIRIN] Onset: 3 Episodic [...] Range Facility 36on 01-01-2024 36 Needs appt [facility] Follow-Upon 12-19-2023 Follow-Up [id number] Pancho Patel 1955 F Date Provider Department Center 12/19/2023 ANABELLE CLAUDIO [facility]CVASEBETY [facility] Family History Problem Relation Age of Onset Diabetes Mother Cancer Mother Heart disease Father Alcohol abuse Brother Diabetes Brother Family Status - Relation Status Age at Mother Father Brother Level of Service:39594 NE OFFICE/OUTPATIENT ESTABLISHED LOW MDM 20 MIN Reason for Visit and Comments: Hospital Follow-up [832] - 12/04/23 impatient PAD [facility] 30on 12-05-2023 30 Daily Case Managemen [...] and under toe wounds 12/05/23 0236 Normal [facility] BASIC METABOLIC PANELon 11-11 Anion gap [Moles/Vol] 7 mmol/L Normal 7-20 [facility] Comment on above: Performed By: #### L [id number] #### [facility] ([facility]) [address] [place] [address] Calcium [Mass/Vol] 8.6 mg/dL Normal 8.6-10.3 [facility] Comment on above: Performed By: #### L [id number] #### [facility] ([facility]) [address] [place] [address] Chloride [Moles/Vol] 105 mmol/L Normal 98-107 [facility] Comment on above: Performed By: #### L [id number] #### [facility] [address] [place] [address] CO2 [Moles/Vol] 27 mmol/L Normal 21-31 [facility] Comment on above: Performed By: #### L [id number] #### [facility] ([facility]) [address] [place] [address] Creatinine [Mass/Vol] 0.97 mg/dL Normal 0.60-1.20 [facility] Comment on above: Performed By: #### L [id number] #### [facility] ([facility]) [address] [place] [address] GLOMERULAR FILTRATION RATE ML/MIN/1.73 SQ M.PREDICTED 63.3 mL/min/1.73m*2 Normal >60.0 [facility] Comment on above: Result Comment: The [facility]???s estimated glomerular filtration rate (eGFR) will no [...] individuals. Performed By: #### L [id number] #### [facility] ([facility]) [address] [place] [address] Glucose [Mass/Vol] 192 mg/dL High 70-100 [facility] Comment on above: Performed By: #### L [id number] #### [facility] ([facility]) [address] [place] [address] Potassium [Moles/Vol] 4.1 mmol/L Normal 3.5-5.1 [facility] Comment on above: Performed By: #### L [id number] #### [facility] ([facility]) [address] [place] [address] Sodium [Moles/Vol] 135 mmol/L Low 136-145 [facility] Comment on above: Performed By: #### L [id number] #### [facility] [address] [place] [address] Urea nitrogen [Mass/Vol] 29 mg/dL High 7-25 [facility] Comment on above: Performed By: #### L [id number] #### [facility] ([facility]) [address] [place] [address] UREA NITROGEN/CREATININE (MASS RATIO) IN SER/PLAS 29.9 Normal [facility] Comment on above: Performed By: #### L [id number] #### [facility] ([facility]) [address] [place] [address] CBCon 12-05-2023 Erythrocyte distribution width (RBC) [Ratio] 13.5 % Normal 11.5-15.0 [facility] Comment on above: Performed By: #### L [id number] #### [facility] ([facility]) [address] [place] [address] ERYTHROCYTE MEAN CORPUSCULAR HEMOGLOBIN CONCENTRATION (G/DL) BY AUTOMATED 32.3 g/dL Normal 32.0-35.0 [facility] Comment on above: Performed By: #### L [id number] #### [facility] [address] [place] [address] Hematocrit (Bld) [Volume fraction] 30.0 % Low 36.0-48.0 [facility] Comment on above: Performed By: #### L [id number] #### [facility] [address] [place] [address] Hemoglobin (Bld) [Mass/Vol] 9.7 g/dL Low 12.0-15.0 [facility] Comment on above: Performed By: #### L [id number] #### [facility] [address] [address] MCH (RBC) [Entitic mass] 28.6 pg Normal 27.0-33.0 [facility] Comment on above: Performed By: #### L [id number] #### [facility] [address] [place] [address] MCV (RBC) [Entitic vol] 88.5 fL Normal 82.0-98.0 [facility] Comment on above: Performed By: #### L [id number] #### [facility] ([facility]) [address] [place] [address] PLATELETS (10*3/UL) IN BLOOD AUTOMATED COUNT 182 10*3/uL Normal 150-400 [facility] Comment on above: Performed By: #### L [id number] #### [facility] ([facility]) [address] [place] [address] RBC (Bld) [#/Vol] 3.39 10*6/uL Low 3.80-5.00 [facility] Comment on above: Performed By: #### L [id number] #### [facility] ([facility]) [address] [place] [address] WBC (Bld) [#/Vol] 8.35 10*3/uL Normal 4.00-10.60 [facility] Comment on above: Performed By: #### L [id number] #### [facility] ([facility]) [address] [place] [address] NURSNOTEon 12-05-2023 NURSNOTE Patient IV removed a nd wheeled out to husbands truck at the main enterance Normal [facility] POCT GLUCOSE METER UNSOLICIT ED RESULTSon 12-05-2023 Glucose [Mass/Vol] 172 mg/dL High 70-105 [facility] Comment on above: Order Comment: Waive d Testing in the ED is performed under the ED CLIA certificate #[id number]. Result Comment: [email or web address] rbo Performed By: #### L [id number] #### [facility] ([facility]) [address] [place] [address] Glucose [Mass/Vol] 194 mg/dL High 70-105 [facility] Comment on above: Order Comment: Waive d Testing in the ED is performed under the ED CLIA certificate #[id number]. Result Comment: kret tin Performed By: #### L [id number] #### [facility] ([facility]) [address] [place] [address] APTTon 12-04-2023 ACTIVATED PARTIAL THROMBOPLASTIN TIME IN PPP BY COAGULATION ASSAY 152.0 Seconds Critically high 25.0-35.0 [facility] Comment on above: Result Comment: Clin ical significance of the APTT is questionable in the presence of heparin. Performed By: #### L [id number] #### [facility] ([facility]) [address] [place] [address] ACTIVATED PARTIAL THROMBOPLASTIN TIME IN PPP BY COAGULATION ASSAY 140.0 Seconds Critically high 25.0-35.0 [facility] Comment on above: Result Comment: Clin ical significance of the APTT is questionable in the presence of heparin. Performed By: #### L [id number] #### [facility] ([facility]) [address] [place] [address] BASIC METABOLIC PANELon 11-11 Anion gap [Moles/Vol] 10 mmol/L Normal 7-20 [facility] Comment on above: Performed By: #### L [id number] #### [facility] ([facility]) [address] [place] [address] Calcium [Mass/Vol] 9.6 mg/dL Normal 8.6-10.3 [facility] Comment on above: Performed By: #### L [id number] #### [facility] ([facility]) [address] [place] [address] Chloride [Moles/Vol] 101 mmol/L Normal 98-107 [facility] Comment on above: Performed By: #### L [id number] #### [facility] [address] [place] [address] CO2 [Moles/Vol] 24 mmol/L Normal 21-31 [facility] Comment on above: Performed By: #### L [id number] #### [facility] ([facility]) [address] [place] [address] Creatinine [Mass/Vol] 1.32 mg/dL High 0.60-1.20 [facility] Comment on above: Performed By: #### L [id number] #### [facility] ([facility]) [address] [place] [address] GLOMERULAR FILTRATION RATE ML/MIN/1.73 SQ M.PREDICTED 43.7 mL/min/1.73m*2 Low >60.0 [facility] Comment on above: Result Comment: The [facility]???s estimated glomerular filtration rate (eGFR) will no [...] group of individuals. Performed By: #### L [id number] #### [facility] ([facility]) [address] [place] [address] Glucose [Mass/Vol] 268 mg/dL High 70-100 [facility] Comment on above: Performed By: #### L [id number] #### [facility] ([facility]) [address] [place] [address] Potassium [Moles/Vol] 4.5 mmol/L Normal 3.5-5.1 [facility] Comment on above: Performed By: #### L [id number] #### [facility] ([facility]) [address] [place] [address] Sodium [Moles/Vol] 130 mmol/L Low 136-145 [facility] Comment on above: Performed By: #### L [id number] #### [facility] ([facility]) [address] [place] [address] Urea nitrogen [Mass/Vol] 42 mg/dL High 7- [facility] Comment on above: Performed By: #### L [id number] #### [facility] ([facility]) [address] [place] [address] UREA NITROGEN/CREATININE (MASS RATIO) IN SER/PLAS 31.8 Normal [facility] Comment on above: Performed By: #### L [id number] #### [facility] ([facility]) [address] [place] [address] CBC WITH AUTO DIFFERENTIALon 12-04-2023 Basophils (Bld) [#/Vol] 0.04 10*3/uL Normal 0.00-0.20 [facility] Comment on above: Performed By: #### L [id number] #### [facility] ([facility]) [address] [place] [address] Basophils/100 WBC (Bld) 0.4 % Normal 0.0-1.0 [facility] Comment on above: Performed By: #### L [id number] #### [facility] [address] [place] [address] Eosinophils (Bld) [#/Vol] 0.18 10*3/uL Normal 0.00-0.50 [facility] Comment on above: Performed By: #### L [id number] #### [facility] ([facility]) [address] [place] [address] Eosinophils/100 WBC (Bld) 1.9 % Normal 0.0-6.0 [facility] Comment on above: Performed By: #### L [id number] #### [facility] [address] [place] [address] Erythrocyte distribution width (RBC) [Ratio] 13.4 % Normal 11.5-15.0 [facility] Comment on above: Performed By: #### L [id number] #### [facility] [address] [place] [address] ERYTHROCYTE MEAN CORPUSCULAR HEMOGLOBIN CONCENTRATION (G/DL) BY AUTOMATED 33.3 g/dL Normal 32.0-35.0 [facility] Comment on above: Performed By: #### L [id number] #### [facility] [address] [place] [address] Hematocrit (Bld) [Volume fraction] 30.6 % Low 36.0-48.0 [facility] Comment on above: Performed By: #### L [id number] #### [facility] [address] [place] [address] Hemoglobin (Bld) [Mass/Vol] 10.2 g/dL Low 12.0-15.0 [facility] Comment on above: Performed By: #### L [id number] #### [facility] [address] [address] Immature granulocytes (Bld) [#/Vol] 0.02 10*3/uL Normal 0.00-0.20 [facility] Comment on above: Performed By: #### L [id number] #### [facility] ([facility]) [address] [place] [address] Immature granulocytes/100 WBC (Bld) 0.2 % Normal 0.0-1.0 [facility] Comment on above: Performed By: #### L [id number] #### [facility] ([facility]AKER) [address] [place] [address] Lymphocytes (Bld) [#/Vol] 3.07 10*3/uL Normal 1.20-4.00 [facility] Comment on above: Performed By: #### L [id number] #### [facility] ([facility]) [address] [place] [address] Lymphocytes/100 WBC (Bld) 32.0 % Normal 20.0-45.0 [facility] Comment on above: Performed By: #### L [id number] #### [facility] ([facility]) [address] [place] [address] MCH (RBC) [Entitic mass] 29.1 pg Normal 27.0-33.0 [facility] Comment on above: Performed By: #### L [id number] #### [facility] ([facility]) [address] [place] [address] MCV (RBC) [Entitic vol] 87.2 fL Normal 82.0-98.0 [facility] Comment on above: Performed By: #### L [id number] #### [facility] ([facility]) [address] [place] [address] Monocytes (Bld) [#/Vol] 0.96 10*3/uL Normal 0.10-1.00 [facility] Comment on above: Performed By: #### L [id number] #### [facility] ([facility]) [address] [address] Monocytes/100 WBC (Bld) 10.0 % Normal 5.0-12.0 [facility] Comment on above: Performed By: #### L [id number] #### [facility] ([facility]) [address] [place] [address] Neutrophils (Bld) [#/Vol] 5.33 10*3/uL Normal 1.60-7.60 [facility] Comment on above: Performed By: #### L [id number] #### [facility] ([facility]) [address] [place] [address] Neutrophils/100 WBC (Bld) 55.5 % Normal 40.0-72.0 [facility] Comment on above: Performed By: #### L [id number] #### [facility] ([facility]) [address] [place] [address] NRBC (PER 100 WBCS) BY AUTOMATED COUNT 0.0 % Normal 0 [facility] Comment on above: Performed By: #### L [id number] #### [facility] ([facility]) [address] [place] [address] PLATELETS (10*3/UL) IN BLOOD AUTOMATED COUNT 207 10*3/uL Normal 150-400 [facility] Comment on above: Performed By: #### L [id number] #### [facility] ([facility]) [address] [place] [address] RBC (Bld) [#/Vol] 3.51 10*6/uL Low 3.80-5.00 [facility] Comment on above: Performed By: #### L [id number] #### [facility] ([facility]) [address] [place] [address] WBC (Bld) [#/Vol] 9.60 10*3/uL Normal 4.00-10.60 [facility] Comment on above: Performed By: #### L [id number] #### [facility] ([facility]) [address] [place] [address] CONSULTon 12-04-2023 CONSULT -- Attestation signed by Jennifer Vaca MD at 12/04/2023 1:00 PM Pt with severe pain left leg Has no pulses History of PVD Plan for angiogram and intervention Reason For Consult left leg critical limb ischemia Referring Provider: [facility] emergency department History Of Present Illness Marimar [...] emergency department after being referred by her coil wrapper for worsening leg pain. It is worse at night. She also reports significant pain in the toes. Past Medical History She has a past medical history of A-fib (CMS/[facility]), Aortic valve stenosis, Coronary artery disease, Diabetes mellitus (CMS/[facility]), Hypertension, and Peripheral vascular disease ([facility]). Surgical History She has a past surgical [...] 274 (H) (more content not included)... Normal [facility] CONSULT -- Attestation signed by Bev Bradford [...] has a past medical history of A-fib ([facility]), Aortic valve stenosis, Coronary artery disease, Diabetes mellitus ([facility]), Hypertension, and Peripheral vascular disease ([facility]). Surgical History She has a past surgical [...] Lab Results (more content not included)... Normal [facility] OPNOTEon 12-04-2023 OPNOTE LEFT LOWER EXTREMITY ANGIOGRAM (L), AORTOGRAM, LEFT LOWER EXTREMITY JETSTREAM AND ATHERECTOMY/THROMBECOM Y, LEFT LOWER EXTREMITY DRUG COATED BALLOON ANGIOPLASTY OF SFA AND POLITEAL ARTERIES, LEFT LOWER EXTREMITY DISTAL SFA AND POPLITEAL COVERED STENTING Operative Note Date: 12/04/2023 Location: [facility] OR Name: Marimar Patel, : 1955, Diagnosis Pre-op Diagnosis * PAD (peripheral artery disease) (CMS/HCC) [I73.9] Post-op Diagnosis * PAD (peripheral artery disease) (CMS/HCC) [I73.9] Procedures LEFT LOWER EXTREMITY ANGIOGRAM 40574 - NE OFFICE/OUTPT VISIT,PROCEDURE ONLY AORTOGRAM 34822 - NE OFFICE/OUTPT VISIT,PROCEDURE ONLY LEFT LOWER EXTREMITY JETSTREAM AND ATHERECTOMY/THROMBECOM Y 66399 - NE OFFICE/OUTPT VISIT,PROCEDURE ONLY LEFT LOWER EXTREMITY DRUG COATED BALLOON ANGIOPLASTY OF SFA AND POLITEAL ARTERIES 86875 - NE OFFICE/OUTPT VISIT,PROCEDURE ONLY LEFT LOWER EXTREMITY DISTAL SFA AND POPLITEAL COVERED STENTING 11855 - NE OFFICE/OUTPT VISIT,PROCEDURE ONLY Surgeons * Jennifer Vaca - Primary Procedure Summary Anesthesia: General ASA: III Estimated Blood Loss: 20 mL Total IV Fluids: mL Drains: * None in log * Implants Type Name Action Serial No. Stent STENT,[id number] - [id number] - [id number] Implanted [id number] Staff: Flooring Machine Operator: Fercho Farrell RN; Tonja Kelly; Olvin Ley RN Scrub Person: Anabelle Wolf Manager Cost: Jaime Parekh CSA Indications: Marimar Patel is an 68 y.o. female who is having surgery for PAD (peripheral artery disease) ([facility]) [I73.9]. Patient presented with wrist pain and [...] common femoral artery. Micro sheath and 6 Bel[place]ian sheath were inserted. [place] flush catheter was placed in the abdominal aorta. Angiogram was done for the aorta and the iliac arteries. After that the catheter was placed in the contralateral external iliac artery angiogram was done for the left lower extremity. At this stage patient was given heparin. And then the 6 [place]ian sheath exchanged to a 7 [place]ian sheath with the tip in the superficial [...] was persistent because of this inserted a [place] [employer] 6 x 10 cm cover the stent followed b (more content not included)... Normal [facility] POCT GLUCOSE METER UNSOLICIT ED RESULTSon 12-04-2023 Glucose [Mass/Vol] 173 mg/dL High 70-105 [facility] Comment on above: Order Comment: Waive d Testing in the ED is performed under the ED CLIA certificate #[id number]. Result Comment: sbel air Performed By: #### L [id number] #### [facility] ([facility]) [address] [place] [address] Glucose [Mass/Vol] 176 mg/dL High 70-105 [facility] Comment on above: Order Comment: Waive d Testing in the ED is performed under the ED CLIA certificate #[id number]. Result Comment: czyd orc Performed By: #### L [id number] #### [facility] ([facility]) [address] [place] [address] Glucose [Mass/Vol] 284 mg/dL High 70-105 [facility] Comment on above: Order Comment: Waive d Testing in the ED is performed under the ED CLIA certificate #[id number]. Result Comment: spar [email or web address] Performed By: #### L [id number] #### [facility] ([facility]) [address] [place] [address] TROPONIN Ion 12-04-2023 Troponin I.cardiac [Mass/Vol] 0.02 ng/mL Normal 0.00-0.04 [facility] Comment on above: Performed By: #### L [id number] #### [facility] ([facility]) [address] [place] [address] APTTon 12-03-2023 ACTIVATED PARTIAL THROMBOPLASTIN TIME IN PPP BY COAGULATION ASSAY 35.8 Seconds High 25.0-35.0 [facility] Comment on above: Result Comment: Clin ical significance of the APTT is questionable in the presence of heparin. Performed By: #### L [id number] #### [facility] [address] [place] [address] BASIC METABOLIC PANELon -2 Anion gap [Moles/Vol] 13 mmol/L Normal 7-20 [facility] Comment on above: Performed By: #### L [id number] ####[facility] [place] [address] Calcium [Mass/Vol] 11.5 mg/dL High 8.6-10.3 [facility] Comment on above: Performed By: #### L [id number] ####[facility] ([facility])[address] [place] [address] Chloride [Moles/Vol] 93 mmol/L Low 98-107 [facility] Comment on above: Performed By: #### L [id number] ####[facility] ([facility])[address] [place] [address] CO2 [Moles/Vol] 27 mmol/L Normal 21-31 [facility] Comment on above: Performed By: #### L [id number] ####[facility] ([facility])[address] [place] [address] Creatinine [Mass/Vol] 1.68 mg/dL High 0.60-1.20 [facility] Comment on above: Performed By: #### L [id number] ####[facility] ([facility])[address] [place] [address] GLOMERULAR FILTRATION RATE ML/MIN/1.73 SQ M.PREDICTED 32.7 mL/min/1.73m*2 Low >60.0 [facility] Comment on above: Result Comment: The [facility]???s estimated glomerular filtration rate (eGFR) will no [...] of individuals. Performed By: #### L [id number] ####[facility] ([facility])[address] [place] [address] Glucose [Mass/Vol] 274 mg/dL High 70-100 [facility] [facility] Comment on above: Performed By: #### L [id number] ####[facility] ([facility])[address] [place] [address] Potassium [Moles/Vol] 5.1 mmol/L Normal 3.5-5.1 [facility] Comment on above: Performed By: #### L [id number] ####[facility] ([facility])[address] [place] [address] Sodium [Moles/Vol] 128 mmol/L Low 136-145 [facility] Comment on above: Performed By: #### L [id number] ####[facility] ([facility])[address] [place] [address] Urea nitrogen [Mass/Vol] 55 mg/dL High 7-25 [facility] Comment on above: Performed By: #### L [id number] ####[facility] ([facility])[address] [place] [address] UREA NITROGEN/CREATININE (MASS RATIO) IN SER/PLAS 32.7 Normal [facility] Comment on above: Performed By: #### L [id number] ####[facility] ([facility])[address] [place] [address] CBC WITH AUTO DIFFERENTIALon 12-03-2023 Basophils (Bld) [#/Vol] 0.05 10*3/uL Normal 0.00-0.20 [facility] Comment on above: Performed By: #### L [id number] #### [facility] ([facility]) [address] [place] [address] Basophils/100 WBC (Bld) 0.5 % Normal 0.0-1.0 [facility] Comment on above: Performed By: #### L [id number] #### [facility] ([facility]) [address] [place] [address] Eosinophils (Bld) [#/Vol] 0.21 10*3/uL Normal 0.00-0.50 [facility] Comment on above: Performed By: #### L [id number] #### [facility] ([facility]) [address] [place] [address] Eosinophils/100 WBC (Bld) 1.9 % Normal 0.0-6.0 [facility] Comment on above: Performed By: #### L [id number] #### [facility] ([facility]) [address] [place] [place] [address] Erythrocyte distribution width (RBC) [Ratio] 13.2 % Normal 11.5-15.0 [facility] Comment on above: Performed By: #### L [id number] #### [facility] ([facility]) [address] [place] [address] ERYTHROCYTE MEAN CORPUSCULAR HEMOGLOBIN CONCENTRATION (G/DL) BY AUTOMATED 33.5 g/dL Normal 32.0-35.0 [facility] Comment on above: Performed By: #### L [id number] #### [facility] ([facility]) [address] [place] [address] Hematocrit (Bld) [Volume fraction] 34.6 % Low 36.0-48.0 [facility] Comment on above: Performed By: #### L [id number] #### [facility] ([facility]) [address] [place] [address] Hemoglobin (Bld) [Mass/Vol] 11.6 g/dL Low 12.0-15.0 [facility] Comment on above: Performed By: #### L [id number] #### [facility] ([facility]) [address] [place] [address] Immature granulocytes (Bld) [#/Vol] 0.03 10*3/uL Normal 0.00-0.20 [facility] Comment on above: Performed By: #### L [id number] #### [facility] ([facility]) [address] [place] [address] Immature granulocytes/100 WBC (Bld) 0.3 % Normal 0.0-1.0 [facility] Comment on above: Performed By: #### L [id number] #### [facility] ([facility]) [address] [place] [address] Lymphocytes (Bld) [#/Vol] 3.27 10*3/uL Normal 1.20-4.00 [facility] Comment on above: Performed By: #### L [id number] #### [facility] ([facility]) [address] [place] [place] [address] Lymphocytes/100 WBC (Bld) 30.0 % Normal 20.0-45.0 [facility] Comment on above: Performed By: #### L [id number] #### [facility] ([facility]) [address] [place] [address] MCH (RBC) [Entitic mass] 28.3 pg Normal 27.0-33.0 [facility] Comment on above: Performed By: #### L [id number] #### [facility] ([facility]) [address] [place] [address] MCV (RBC) [Entitic vol] 84.4 fL Normal 82.0-98.0 [facility] Comment on above: Performed By: #### L [id number] #### [facility] ([facility]) [address] [place] [address] Monocytes (Bld) [#/Vol] 1.05 10*3/uL High 0.10-1.00 [facility] Comment on above: Performed By: #### L [id number] #### [facility] ([facility]) [address] [place] [address] Monocytes/100 WBC (Bld) 9.6 % Normal 5.0-12.0 [facility] Comment on above: Performed By: #### L [id number] #### [facility] ([facility]) [address] [place] [address] Neutrophils (Bld) [#/Vol] 6.28 10*3/uL Normal 1.60-7.60 [facility] Comment on above: Performed By: #### L [id number] #### [facility] ([facility]) [address] [address] Neutrophils/100 WBC (Bld) 57.7 % Normal 40.0-72.0 [facility] Comment on above: Performed By: #### L [id number] #### [facility] ([facility]) [address] [address] NRBC (PER 100 WBCS) BY AUTOMATED COUNT 0.0 % Normal 0 [facility] Comment on above: Performed By: #### L [id number] #### [facility] ([facility]) [address] [address] PLATELETS (10*3/UL) IN BLOOD AUTOMATED COUNT 237 10*3/uL Normal 150-400 [facility] Comment on above: Performed By: #### L [id number] #### [facility] ([facility]) [address] [address] RBC (Bld) [#/Vol] 4.10 10*6/uL Normal 3.80-5.00 [facility] Comment on above: Performed By: #### L [id number] #### [facility] ([facility]) [address] [place] [address] WBC (Bld) [#/Vol] 10.89 10*3/uL High 4.00-10.60 [facility] Comment on above: Performed By: #### L [id number] #### [facility] ([facility]) [address] [place] [address] CTA AORTA AND BILATERAL ILIO FEMORAL RUNOFF [...] to the ankle. Electronically signed: Gayle Quintanilla. [facility] EDNURSon 12-03-2023 EDNURS Mode of arrival (squ ad #, walk in, police, etc): Walk in Chief complaint(s): Foot wound, leg/calf pain Arrival Note (brief scenario, treatment GOSPEL SINGER, etc): Patient states she had testing/labs done for her leg sores/pain. Patient states doctor set it up for her to get angioplasty. [facility] EDPROVon 12-03-2023 EDPROV HPI Chief Complaint [...] Attestion Mark Gaines NP 12/03/23 1649 Normal [facility] HEMOGLOBIN A1Con 12-03-2023 Glucose [Mass/Vol] 252 mg/dL Normal [facility] Comment on above: Performed By: #### L [id number] #### [facility] ([facility]) [address] [place] [address] HbA1c (Bld) [Mass fraction] 10.4 % High 4.0-6.0 [facility] Comment on above: Performed By: #### L [id number] #### [facility] ([facility]) [address] [place] [address] HPon 12-03-2023 HP History Of Present Illness [...] 10*3/uL 6.28 (more content not included)... Normal [facility] POCT GLUCOSE METER UNSOLICIT ED RESULTSon 12-03-2023 Glucose [Mass/Vol] 337 mg/dL High 70-105 [facility] Comment on above: Order Comment: Waive d Testing in the ED is performed under the ED CLIA certificate #[id number]. Result Comment: spar [email or web address] Performed By: #### L [id number] ####[facility] (HOMER)[address] [place] [address] PROTIME-INRon 12-03-2023 INR IN PPP BY COAGULATION ASSAY 1.24 High 0.90-1.10 [facility] Comment on above: Result [...] RANGE. CHEST 1995;108:231S-246S. Performed By: #### L [id number] #### [facility] ([facility]) [address] [place] [address] PROTHROMBIN TIME (PT) IN PPP BY COAGULATION ASSAY 15.7 Seconds High 12.3-14.8 [facility] Comment on above: Performed By: #### L [id number] #### [facility] ([facility]) [address] [place] [address] Telephoneon 10-29-2023 Telephone [id number] Pancho Patel 1955 F Date Provider Department Center 10/29/2023 [id number] VILLANUEVA [facility] Family History Problem Relation Age of Onset Diabetes Mother Cancer Mother Heart disease Father Alcohol abuse Brother Diabetes Brother Family Status - Relation Status Age at Mother Father Brother Normal [facility] US UNI ankle/arm indiceson 0 02-24-2023 US UNI ankle/arm indices [facility] Main [place] [address] [place] [address] Ultrasound Report Signed Patient: Marimar Patel MR#: [id number] 525 : 1955 Acct:[id number] Age/Sex: 67 / F ADM Date: 02/19/23 Loc: [facility] Room: Type: [facility] CLI Attending Dr: Geo Mathew MD Ordering [...] Geo Mathew MD02/24/2023 3:16 PM Dictation Location: [facility] Tech: Ale Lim Transcribed By: [facility] 02/24/23 151 Dictated By: Geo Mathew MD 02/24/23 1515 Signed By: 02/24/23 [address] [facility] [address] STROKE HEAD WOon 02-01-20 CT [...] by: CHANTAL KILLIAN Date: 2023-01-31 12:44 Normal [facility] 36on 01-28-2023 36 Lmom for patient to call to schedule appt Normal [facility] 36on 01-22-2023 36 Hi. I am not sure of your process yet with refilling medications Normal [facility] Refillon 01-21-2023 Refill [id number] Pancho Patel ie L 1955 F Date Provider Department Center 01/21/2023 [id number] AGUILAR HVCVASENDO [place] [facility] Family History Problem Relation Age of Onset Diabetes Mother Cancer Mother Heart disease Father Alcohol abuse Brother Diabetes Brother Family Status - Relation Status Age at Mother Father Brother Reason for Visit and Comments: Med Refill [[id number]] Normal [facility] Blood Urea Nitrogenon 2022 Urea nitrogen [Mass/Vol] 48 mg/dL High 9-23 [facility] Comment on above: Performed By: #### C REAT, BUN #### [facility] [address] [place] [address] [place] Creatinineon 01-13-2023 Creatinine [Mass/Vol] 1.75 mg/dL High 0.44-1.03 [facility] Comment on above: Performed By: #### C REAT, BUN #### [facility] [address] [place] [address] Creatinine Clr Calc Pharmacy 27.91 [facility] Comment on above: Result Comment: PERF ORMED BY: [place] [address] PATHOLOGIST FREIGHT ASSOCIATE FAHAD ASKEW M.D. Performed By: #### C REAT, BUN #### [facility] [address] [place] [address] Estimated GFR ( [place] 35 [facility] Comment on above: Result Comment: GFR estimated reference range: According to KDOQI guidelines, <60 ml/min/1.73m2 is sufficient to diagnose a patient with chronic kidney disease. Performed By: #### C REAT, BUN #### [facility] [address] [place] [address] [place] Estimated GFR (Non- Am 29 Normal [facility] Comment on above: Performed By: #### C REAT, BUN #### [facility] [address] Creatinine and Glomerular fi ltration rate.predicted panel (S/P/Bld)Ordered By: Geo Mathew on 01-13-2023 Creatinine [Mass/Vol] 1.75 mg/dL 0.44-1.03 [facility] Estimated glomerular filtrat ion rate (GFR) non- AmericanOrdered By: Geo Mathew on 01-13-2023 GFR/1.73 sq M.predicted among non-blacks MDRD (S/P/Bld) [Vol rate/Area] 29 mL/Min [facility] No Panel InformationOrdered By: Geo Mathew on 01-13-2023 Estimated GFR () 35 mL/Min [facility] Comment on above: GFR estimated refere nce range: According to KDOQI guidelines, <60 ml/min/1.73m2 is sufficient to diagnose a patient with chronic kidney disease. Pharmacy Creatinine Clearance (Chem 27.91 [facility] Urea nitrogen [Mass/volume] in Serum or PlasmaOrdered By: Geo Mathew on 01-13-2023 Urea nitrogen [Mass/Vol] 48 mg/dL 9 [facility] ALBUMINon 08-17-2022 Albumin [Mass/Vol] 3.5 g/dL Normal 3.4-5.0 [facility] Comment on above: Performed By: #### B MP, PREALB, ALB ####[facility] [address] [address]DrIndu Sruthi Hawk CBC AUTO DIFFon 08-17-2022 BASO # 0.0 103/ul Normal 0.0-0.1 [facility] Comment on above: Performed By: #### C BC #### [facility] [address] [address] [address] Sruthi Arechiga Basophils/100 WBC (Bld) 0.5 % Normal 0.2-2.0 [facility] Comment on above: Performed By: #### C BC #### [facility] [address] [place] [address] Dr. Sruthi Arechiga EO # 0.3 103/ul Normal 0.0-0.7 [facility] Comment on above: Performed By: #### C BC #### [facility] [address] [place] [address] Dr. Sruthi Arechiag Eosinophils/100 WBC (Bld) 3.6 % Normal 0.9-7.0 [facility] Comment on above: Performed By: #### C BC #### [facility] [address] [place] [address] Dr. Sruthi Arechiga Erythrocyte distribution width (RBC) [Ratio] 14.5 % Normal 11.0-15.0 [facility] Comment on above: Performed By: #### C BC #### [facility] [address] [place] [address] Dr. Sruthi Arechiga Hematocrit (Bld) [Volume fraction] 37.7 % Normal 36.0-48.0 [facility] Comment on above: Performed By: #### C BC #### [facility] [address] [place] [address] Dr. Sruthi Arechiga Hemoglobin (Bld) [Mass/Vol] 11.9 g/dL Critically low 12.0-16.0 [facility] Comment on above: Performed By: #### C BC #### [facility] [address] [place] [address] Dr. Sruthi Arechiga IG # 0.02 10e3/ul Normal 0.00-0.03 [facility] Comment on above: Performed By: #### C BC #### [facility] [address] [place] [address] Dr. Sruthi Arechiga IG % 0.2 % Normal 0.0-0.5 [facility] Comment on above: Performed By: #### C BC #### [facility] [address] [place] [address] Dr. Sruthi Arechiga LYMPH # 2.7 103/ul Normal 1.2-3.8 [facility] Comment on above: Performed By: #### C BC #### [facility] [address] [place] [address] Dr. Sruthi Arechiga Lymphocytes/100 WBC (Bld) 32.2 % Normal 20.5-60.0 [facility] Comment on above: Performed By: #### C BC #### [facility] [address] [place] [address] Dr. Sruthi Arechiga MANUAL DIFF REQ NO Normal [facility] Comment on above: Performed By: #### C BC #### [facility] [address] [place] [address] Dr. Sruthi Arechiga MCH (RBC) [Entitic mass] 26.8 pg Normal 26.7-34.0 [facility] Comment on above: Performed By: #### C BC #### [facility] [address] [place] [address] Dr. Sruthi Arechiga MCHC (RBC) [Mass/Vol] 31.6 g/dL Normal 29.9-35.2 [facility] Comment on above: Performed By: #### C BC #### [facility] [address] [place] [address] Dr. Sruthi Arechiga MCV (RBC) [Entitic vol] 84.9 fL Normal 81.0-99.0 [facility] Comment on above: Performed By: #### C BC #### [facility] [address] [place] [address] Dr. Sruthi Arechiga MONO # 0.8 103/ul Normal 0.3-0.8 [facility] Comment on above: Performed By: #### C BC #### [facility] [address] [place] [address] Dr. Sruthi Arechiga Monocytes/100 WBC (Bld) 9.6 % Normal 1.7-12.0 [facility] Comment on above: Performed By: #### C BC #### [facility] [address] [place] [address] Dr. Sruthi Arechiga NEUT # 4.5 103/ul Normal 1.4-6.5 [facility] Comment on above: Performed By: #### C BC #### [facility] [address] [place] [address] Dr. Sruthi Arechiga Neutrophils/100 WBC (Bld) 53.9 % Normal 43.0-75.0 [facility] Comment on above: Performed By: #### C BC #### [facility] [address] [place] [address] Dr. Sruthi Arechiga Platelet mean volume (Bld) [Entitic vol] 10.8 fL Normal 9.5-13.5 [facility] Comment on above: Performed By: #### C BC #### [facility] [address] [place] [address] Dr. Sruthi Arechiga PLT 246 103/ul Normal 150-450 [facility] Comment on above: Performed By: #### C BC #### [facility] [address] [place] [address] Dr. Sruthi Arechiga RBC 4.44 106/ul Normal 4.20-5.40 [facility] Comment on above: Performed By: #### C BC #### [facility] [address] [place] [address] Dr. Sruthi Arechiga WBC 8.4 103/ul Normal 4.0-11.0 [facility] Comment on above: Performed By: #### C BC #### [facility] [address] [place] [address] Dr. Sruthi Arechiga [facility]on SARS-CoV-2 (COVID-19) RNA KOLE+probe Ql (Unsp spec) Not detected Normal NOT DETECTED [facility] Comment on above: Result Comment: This test is not yet approved or cleared by the [place] FDA. When there are no FDA-approved or cleared tests available, and other criteria are met, FDA can make tests available under an emergency access mechanism called an Emergency Use Authorization (EUA). The EUA for this test is supported by the [place] of Health and Human Service's (HHS's) declaration [...] SARS-CoV-2. Performed By: #### C VDTBH #### [facility] [address] [place] [address] Dr. Sruthi Arechiga GLYCOHEMOGLOBIN A1Con 2021 ADA RECOMMENDATION SEE BELOW Normal [facility] Comment on above: Result Comment: ADA RECOMMENDED LIMIT 4.0 - 6.0 ADA THERAPEUTIC TARGET < 7.0 ACTION SUGGESTED > 7.0 Performed By: #### H STROPN #### [facility] [address] [place] [address] Dr. Sruthi Arechiga Glucose [Mass/Vol] 255 mg/dL Normal [facility] Comment on above: Performed By: #### H STROPN #### [facility] [address] [place] [address] Dr. Sruthi Arechiga HbA1c (Bld) [Mass fraction] 10.5 % Critically high 4.5-6.2 [facility] Comment on above: Performed By: #### H STROPN #### [facility] [address] [place] [address] Dr. Sruthi Arechiga MRSA NARES #1on 08-17-2022 MRSA NARES #1 Culture Observations : NO GROWTH OF MRSA AT 48 HOURS. Normal [facility] Comment on above: Performed By: #### M RSAN1 ####[facility] [address] [place], [place] [address]Dr. Sruthi Arechiga PREALBUMINon 08-17-2022 Prealbumin [Mass/Vol] 23.6 mg/dL Normal 20.9-45.5 [facility] Comment on above: Performed By: #### B MP, PREALB, ALB ####[facility] [address] [address]Dr. Sruthi Arechiga PROF CHEM 8 (BAS METB)on Anion gap [Moles/Vol] 11.2 mmol/L Normal [facility] Comment on above: Performed By: #### B MP, PREALB, ALB ####[facility] [address] [address]Dr. Sruthi Arechiga Calcium [Mass/Vol] 9.1 mg/dL Normal 8.5-10.1 [facility] Comment on above: Performed By: #### B MP, PREALB, ALB ####[facility] [address] [place], [place] [address]Dr. Sruthi Arechiga Chloride [Moles/Vol] 105 mmol/L Normal 98-107 [facility] Comment on above: Performed By: #### B MP, PREALB, ALB ####[facility] [address] [place], [place] [address]Dr. Sruthi Arechiga CO2 [Moles/Vol] 26.3 mmol/L Normal 21.0-32.0 [facility] Comment on above: Performed By: #### B MP, PREALB, ALB ####[facility] [address] [place], [place] [address]Dr. Sruthi Arechiga Creatinine [Mass/Vol] 0.72 mg/dL Normal 0.55-1.02 [facility] Comment on above: Performed By: #### B MP, PREALB, ALB ####[facility] [address] [place], [place] [address]Dr. Sruthi Hawk EGFR-AF GEORGIAN >60 Normal >=60 [facility] Comment on above: Performed By: #### B MP, PREALB, ALB ####[facility] [address] [place], [place] [address]Dr. Sruthi Arechiga EGFR-NON AF GEORGIAN >60 Normal >=60 [facility] Comment on above: Performed By: #### B MP, PREALB, ALB ####[facility] [address] [place], [place] [address]Dr. Sruthi Arechiga Glucose [Mass/Vol] 119 mg/dL Critically high 74-106 [facility] Comment on above: Performed By: #### B MP, PREALB, ALB ####[facility] [address] [address]Dr. Sruthi Arechiga Potassium [Moles/Vol] 4.5 mmol/L Normal 3.5-5.1 [facility] Comment on above: Performed By: #### B MP, PREALB, ALB ####[facility] [address] [address]Dr. Sruthi Arechiga Sodium [Moles/Vol] 138 mmol/L Normal 136-145 [facility] Comment on above: Performed By: #### B MP, PREALB, ALB ####[facility] [address] [address]Dr. Sruthi Arechiga Urea nitrogen [Mass/Vol] 18.0 mg/dL Normal 7.0-18.0 [facility] Comment on above: Performed By: #### B MP, PREALB, ALB ####[facility] [address] [address]Dr. Sruthi Arechiga Urea nitrogen/Creatinine [Mass ratio] 25.0 mg/mg Normal [facility] Comment on above: Performed By: #### B MP, PREALB, ALB ####[facility] [address] [address]Dr. Sruthi Arechiga Covid-19 PCR ([facility]on 07-11 SARS-CoV-2 (COVID-19) RNA KOLE+probe Ql (Unsp spec) Not detected Normal NOT DETECTED [facility] Comment on above: Result Comment: When [...] for this test is supported by the [place] of Health and Human Service's declaration that [...] used). Performed By: #### C VDTB #### [facility] [address] [address] [address] Sruthi Arechiga BNPon 07-07-2022 Natriuretic peptide B (Bld) [Mass/Vol] 1389.0 pg/mL Critically high <=900.0 [facility] Comment on above: Performed By: #### B DRYWALL HANGER HELPER, BMP ####[facility] [address] [place], [place] [address]DrIndu Arechiga CBC AUTO DIFFon 07-07-2022 BASO # 0.0 103/ul Normal 0.0-0.1 [facility] Comment on above: Performed By: #### C BC ####[facility] [address] [address]DrIndu Arechiga Basophils/100 WBC (Bld) 0.5 % Normal 0.2-2.0 [facility] Comment on above: Performed By: #### C BC ####[facility] [address] [address]DrIndu Arechiga EO # 0.2 103/ul Normal 0.0-0.7 [facility] Comment on above: Performed By: #### C BC ####[facility] [address] [place], [place] [address]DrIndu Arechiga Eosinophils/100 WBC (Bld) 2.4 % Normal 0.9-7.0 [facility] Comment on above: Performed By: #### C BC ####[facility] [address] [place], [place] [address]DrIndu Arechiga Erythrocyte distribution width (RBC) [Ratio] 13.2 % Normal 11.0-15.0 [facility] Comment on above: Performed By: #### C BC ####[facility] [address] [place] [address]Dr. Sruthi Arechiga Hematocrit (Bld) [Volume fraction] 32.4 % Critically low 36.0-48.0 [facility] Comment on above: Performed By: #### C BC ####[facility] [address] [place] [address]Dr. Sruthi Arechiga Hemoglobin (Bld) [Mass/Vol] 10.2 g/dL Critically low 12.0-16.0 [facility] Comment on above: Performed By: #### C BC ####[facility] O[address]wuaj[address] [place] [address]Dr. Sruthi Arechiga IG # 0.04 10e3/ul Critically high 0.00-0.03 [facility] Comment on above: Performed By: #### C BC ####[facility] Scztboysua[address] [place] [address]Dr. Sruthi Arechiga IG % 0.5 % Normal 0.0-0.5 [facility] Comment on above: Performed By: #### C BC ####[facility] Ljlqmpbwww[address] [place], [place] [address]Dr. Sruthi Arechiga LYMPH # 2.1 103/ul Normal 1.2-3.8 [facility] Comment on above: Performed By: #### C BC ####[facility] Pktuemzawl[address] [place] [address]DrIndu Kamalasven Arechiga Lymphocytes/100 WBC (Bld) 23.9 % Normal 20.5-60.0 [facility] Comment on above: Performed By: #### C BC ####[facility] Fqqfkrqvju[address] [place] [address]DrIndu Kamalasven Arechiga MANUAL DIFF REQ NO Normal [facility] Comment on above: Performed By: #### C BC ####[facility] Vvqndgcuii[address] [place] [address]DrIndu Kamalasven Arechiga MCH (RBC) [Entitic mass] 26.8 pg Normal 26.7-34.0 [facility] Comment on above: Performed By: #### C BC ####[facility] [address]vmb[address] [place], [place] [address]Dr. Sruthi Arechiga MCHC (RBC) [Mass/Vol] 31.5 g/dL Normal 29.9-35.2 [facility] Comment on above: Performed By: #### C BC ####[facility] X[address]ols[address] [place] [id number]. Sruthi Arechiga MCV (RBC) [Entitic vol] 85.0 fL Normal 81.0-99.0 [facility] Comment on above: Performed By: #### C BC ####[facility] Tfyqarcwog[address] [place] [address]Dr. Sruthi Arechiga MONO # 1.1 103/ul Critically high 0.3-0.8 [facility] Comment on above: Performed By: #### C BC ####[facility] Lkmvudbubp[address] [place] [address]Dr. Sruthi Hawk Monocytes/100 WBC (Bld) 13.1 % Critically high 1.7-12.0 [facility] Comment on above: Performed By: #### C BC ####[facility] Wiptwzwyph[address] [place], [place] [address]Dr. Sruthi Arechiga NEUT # 5.2 103/ul Normal 1.4-6.5 [facility] Comment on above: Performed By: #### C BC ####[facility] Cmljxaztom[address] [place], [place] [address]Dr. Sruthi Arechiga Neutrophils/100 WBC (Bld) 59.6 % Normal 43.0-75.0 [facility] Comment on above: Performed By: #### C BC ####[facility] Iaqpzyxlef[address] [place] [address]Dr. Sruthi Arechiga Platelet mean volume (Bld) [Entitic vol] 12.6 fL Normal 9.5-13.5 [facility] Comment on above: Performed By: #### C BC ####[facility] Yeiydojrce[address] [place] [address]Dr. Sruthi Hawk PLT 146 103/ul Critically low 150-450 [facility] Comment on above: Performed By: #### C BC ####[facility] Wrfqcaajbn39[address] [place] [address]Dr. Surthi Arechiga RBC 3.81 106/ul Critically low 4.20-5.40 [facility] Comment on above: Performed By: #### C BC ####[facility] Fhxptoqmyp[address] [place] [address]Dr. Kamalasven Arechiga WBC 8.7 103/ul Normal 4.0-11.0 [facility] Comment on above: Performed By: #### C BC ####[facility] Dhapyzcxss[address] [place] [address]Dr. Sruthi Arechiga PROF CHEM 8 (BAS METB)on Anion gap [Moles/Vol] 12.0 mmol/L Normal [facility] Comment on above: Performed By: #### B DRYWALL HANGER HELPER, BMP ####[facility] Lxicrxxhvz[address] [place], [place] [address]Dr. Sruthi Arechiga Calcium [Mass/Vol] 9.0 mg/dL Normal 8.5-10.1 [facility] Comment on above: Performed By: #### B DRYWALL HANGER HELPER, BMP ####[facility] Ewuqzwnsax[address] [place], [place] [address]Dr. Sruthi Arechiga Chloride [Moles/Vol] 99 mmol/L Normal 98-107 [facility] Comment on above: Performed By: #### B DRYWALL HANGER HELPER, BMP ####[facility] Demwowpvjv[address] [place], [place] [address]Dr. Sruthi Arechiga CO2 [Moles/Vol] 29.4 mmol/L Normal 21.0-32.0 [facility] Comment on above: Performed By: #### B DRYWALL HANGER HELPER, BMP ####[facility] Htourrtham[address] [place], [place] [address]Dr. Sruthi Arechiga Creatinine [Mass/Vol] 0.86 mg/dL Normal 0.55-1.02 [facility] Comment on above: Performed By: #### B DRYWALL HANGER HELPER, BMP ####[facility] Kxorhzxdfd[address] [place], [place] [address]Dr. Sruthi Arechiga EGFR-AF GEORGIAN >60 Normal >=60 [facility] Comment on above: Performed By: #### B DRYWALL HANGER HELPER, BMP ####[facility] [address]se[address] [place] [id number]. Sruthi Arechiga EGFR-NON AF GEORGIAN >60 Normal >=60 [facility] Comment on above: Performed By: #### B DRYWALL HANGER HELPER, BMP ####[facility] M[address]mmqhwcg72[address] [place] [id number]. Sruthi Arechiga Glucose [Mass/Vol] 185 mg/dL Critically high 74-106 [facility] Comment on above: Performed By: #### B DRYWALL HANGER HELPER, BMP ####[facility] Icorwndqvv25[address] [place] [address]Dr. Sruthi Arechiga Potassium [Moles/Vol] 4.4 mmol/L Normal 3.5-5.1 [facility] Comment on above: Performed By: #### B DRYWALL HANGER HELPER, BMP ####[facility] Pr[address]uetdcf[address] [place] [address]Dr. Sruthi Arechiga Sodium [Moles/Vol] 136 mmol/L Normal 136-145 [facility] Comment on above: Performed By: #### B DRYWALL HANGER HELPER, BMP ####[facility] Ywzurdqiix[address] [place] [id number]. Sruthi Arechiga Urea nitrogen [Mass/Vol] 27.0 mg/dL Critically high 7.0-18.0 [facility] Comment on above: Performed By: #### B DRYWALL HANGER HELPER, BMP ####[facility] Haszkdocbm[address] [place] [address]Dr. Sruthi Arechiga Urea nitrogen/Creatinine [Mass ratio] 31.4 mg/mg Normal [facility] Comment on above: Performed By: #### B DRYWALL HANGER HELPER, BMP ####[facility] [address]hsqx[address] [place] [address]Dr. Sruthi Arechiga CBC AUTO DIFFon 07-06-2022 BASO # 0.0 103/ul Normal 0.0-0.1 [facility] Comment on above: Performed By: #### C VDTBH #### [facility] [address] [place] [address] [address] Sruthi Arechiga Basophils/100 WBC (Bld) 0.4 % Normal 0.2-2.0 [facility] Comment on above: Performed By: #### C VDTBH #### [facility] [address] [place] [address] Dr. Sruthi Arechiga EO # 0.2 103/ul Normal 0.0-0.7 [facility] Comment on above: Performed By: #### C VDTBH #### [facility] [address] [place] [address] Dr. Sruthi Arechiga Eosinophils/100 WBC (Bld) 2.4 % Normal 0.9-7.0 [facility] Comment on above: Performed By: #### C VDTBH #### [facility] [address] [place] [address] Dr. Sruthi Arechiga Erythrocyte distribution width (RBC) [Ratio] 13.3 % Normal 11.0-15.0 [facility] Comment on above: Performed By: #### C VDTBH #### [facility] [address] [place] [address] Dr. Sruthi Arechiga Hematocrit (Bld) [Volume fraction] 32.0 % Critically low 36.0-48.0 [facility] Comment on above: Performed By: #### C VDTBH #### [facility] [address] [place] [address] Dr. Sruthi Arechiga Hemoglobin (Bld) [Mass/Vol] 10.0 g/dL Critically low 12.0-16.0 [facility] Comment on above: Performed By: #### C VDTBH #### [facility] [address] [place] [address] Dr. Sruthi Arechiga IG # 0.05 10e3/ul Critically high 0.00-0.03 [facility] Comment on above: Performed By: #### C VDTBH #### [facility] [address] [place] [address] Dr. Sruthi Arechiga IG % 0.5 % Normal 0.0-0.5 [facility] Comment on above: Performed By: #### C VDTBH #### [facility] [address] [place] [address] Dr. Sruthi Arechiga LYMPH # 2.4 103/ul Normal 1.2-3.8 [facility] Comment on above: Performed By: #### C VDTBH #### [facility] [address] [place] [address] Dr. Sruthi Arechiga Lymphocytes/100 WBC (Bld) 24.5 % Normal 20.5-60.0 [facility] Comment on above: Performed By: #### C VDTBH #### [facility] [address] [place] [address] Dr. Sruthi Arechiga MANUAL DIFF REQ NO Normal [facility] Comment on above: Performed By: #### C VDTBH #### [facility] [address] [place] [address] Dr. Sruthi Arechiga MCH (RBC) [Entitic mass] 26.5 pg Critically low 26.7-34.0 [facility] Comment on above: Performed By: #### C VDTBH #### [facility] [address] [place] [address] Dr. Sruthi Arechiga MCHC (RBC) [Mass/Vol] 31.3 g/dL Normal 29.9-35.2 [facility] Comment on above: Performed By: #### C VDTBH #### [facility] [address] [place] [address] Dr. Sruthi Arechiga MCV (RBC) [Entitic vol] 84.9 fL Normal 81.0-99.0 [facility] Comment on above: Performed By: #### C VDTBH #### [facility] [address] [place] [address] Dr. Sruthi Arechiga MONO # 1.1 103/ul Critically high 0.3-0.8 [facility] Comment on above: Performed By: #### C VDTBH #### [facility] [address] [place] [address] Dr. Sruthi Arechiga Monocytes/100 WBC (Bld) 11.7 % Normal 1.7-12.0 [facility] Comment on above: Performed By: #### C VDTBH #### [facility] [address] [place] [address] Dr. Sruthi Arechiga NEUT # 5.8 103/ul Normal 1.4-6.5 [facility] Comment on above: Performed By: #### C VDTBH #### [facility] [address] [place] [address] Dr. Sruthi Arechiga Neutrophils/100 WBC (Bld) 60.5 % Normal 43.0-75.0 [facility] Comment on above: Performed By: #### C VDTBH #### [facility] [address] [place] [address] Dr. Sruthi Arechiga Platelet mean volume (Bld) [Entitic vol] 11.8 fL Normal 9.5-13.5 [facility] Comment on above: Performed By: #### C VDTBH #### [facility] [address] [place] [address] Dr. Sruthi Arechiga PLT 198 103/ul Normal 150-450 [facility] Comment on above: Performed By: #### C VDTBH #### [facility] [address] [place] [address] Dr. Sruthi Arechiga RBC 3.77 106/ul Critically low 4.20-5.40 [facility] Comment on above: Performed By: #### C VDTBH #### [facility] [address] [place] [address] Dr. Sruthi Arechiga WBC 9.7 103/ul Normal 4.0-11.0 [facility] Comment on above: Performed By: #### C VDTBH #### [facility] [address] [place] [address] Dr. Sruthi Arechiga CULTURE URINEon 07-06-2022 CULTURE [...] F Trimethoprim/Sulfameth oxazole <=20 S F Normal [facility] Comment on above: Performed By: #### U RCX ####[facility] [address] [place], [place] [address]Vl. Sruthi Arechiga IRON AND TIBCon 07-06-2022 % SATURATION 9.3 % Normal [facility] Comment on above: Performed By: #### F ETIBC, B12FOL ####[facility] [address] [place], [place] [address]Fi. Sruthi Arechiga Iron [Mass/Vol] 33.0 ug/dL Critically low 50.0-170.0 [facility] Comment on above: Performed By: #### F ETIBC, B12FOL ####[facility] [address] [place] [id number]. Sruthi Arechiga TIBC DIRECT 356.0 ug/dL Normal 250.0-450.0 [facility] Comment on above: Performed By: #### F ETIBC, B12FOL ####[facility] [address]rjmewtb[address] [place] [id number]. Sruthi Arechiga OCC BLD IMMUNO SCREENon 06-11 OCCULT BLOOD Negative Normal NEGATIVE [facility] Comment on above: Performed By: #### O BSCRN #### [facility] [address] [place] [address] [address] Sruthi Arechiga POINT OF CARE GLUCOSEon 06-11 Glucose [Mass/Vol] 203 mg/dL Critically high -[address] [place] [address] Comment on above: Performed By: #### C BC #### [facility] [address] [place] [address] [address] Sruthi Arechiga Glucose [Mass/Vol] 299 mg/dL Critically high [address] [place] [address] Comment on above: Performed By: #### C VDTBH #### [facility] [address] [place] [address] [address] Sruthi Arechiga Glucose [Mass/Vol] 412 mg/dL Critically high [address] [place] [address] Comment on above: Performed By: #### C BC #### [facility] [address] [place], [place] [address] Dr. Sruthi Arechiga PROF CHEM 8 (BAS METB)on Anion gap [Moles/Vol] 11.0 mmol/L Normal [facility] Comment on above: Performed By: #### B MP ####[facility] X[address]hlfatm[address] [place] [id number] Arechiga Calcium [Mass/Vol] 9.0 mg/dL Normal 8.5-10.1 [facility] Comment on above: Performed By: #### B MP ####[facility] [address]vacw[address] [place] [id number]. Sruthi Arechiga Chloride [Moles/Vol] 100 mmol/L Normal 98-107 [facility] Comment on above: Performed By: #### B MP ####[facility] [address]wh[address]yz[address] [place] [address]Dr. Sruthi Arechiga CO2 [Moles/Vol] 28.5 mmol/L Normal 21.0-32.0 [facility] Comment on above: Performed By: #### B MP ####[facility] A[address]wd[address]jin[address] [place] [id number] Arechiga Creatinine [Mass/Vol] 0.98 mg/dL Normal 0.55-1.02 [facility] Comment on above: Performed By: #### B MP ####[facility] [address] [place] [id number] Arecihga EGFR-AF GEORGIAN >60 Normal >=60 [facility] Comment on above: Performed By: #### B MP ####[facility] Hbxvxkqsby55[address] [place] [id number] Arechiga EGFR-NON AF GEORGIAN 56 mL/min/1.73m2 Critically low >=60 [facility] Comment on above: Performed By: #### B MP ####[facility] [address]ks[address]rdsa[address] [place] [id number] Arechiga Glucose [Mass/Vol] 139 mg/dL Critically high 74-106 [facility] Comment on above: Performed By: #### B MP ####[facility] [address]ib[address] [place] [address]Dr. Sruthi Arechiga Potassium [Moles/Vol] 4.5 mmol/L Normal 3.5-5.1 [facility] Comment on above: Performed By: #### B MP ####[facility] Jsxse[address]tur[address] [place] [address]Dr. Sruthi Arechiga Sodium [Moles/Vol] 135 mmol/L Critically low 136-145 [facility] Comment on above: Performed By: #### B MP ####[facility] Iktbytulab[address] [place] [address]Dr. Sruthi Arechiga Urea nitrogen [Mass/Vol] 25.0 mg/dL Critically high 7.0-18.0 [facility] Comment on above: Performed By: #### B MP ####[facility] [address]kn[address]oygu[address] [place], [place] [address]Dr. Sruthi Arechiga Urea nitrogen/Creatinine [Mass ratio] 25.5 mg/mg Normal [facility] Comment on above: Performed By: #### B MP ####[facility] B[address]gapwvze[address] [place], [place] [address]Dr. Sruthi Arechiga VIT B12 AND FOLATEon 022 Cobalamin (Vitamin B12) [Mass/Vol] 653.0 pg/mL Normal 193.0-986.0 [facility] Comment on above: Performed By: #### F ETIBC, B12FOL ####[facility] Sfalqqwrub[address] [place] [address]Dr. Sruthi Arechiga FOLATE 17.90 ng/mL Normal 8.60-58.90 [facility] Comment on above: Performed By: #### F ETIBC, B12FOL ####[facility] [address] [place], [place] [address]Dr. Sruthi Arechiga XR CHEST 2 Von 07-06-2022 [...] GORDON VALENZUELA Date: 2022-07-06 08:43 Normal [facility] CBC AUTO DIFFon 07-05-2022 BASO # 0.0 103/ul Normal 0.0-0.1 [facility] Comment on above: Performed By: #### C BC ####[facility] Nosrmbcpwn[address] [place] [address]Dr. Sruthi Arechiga Basophils/100 WBC (Bld) 0.4 % Normal 0.2-2.0 [facility] Comment on above: Performed By: #### C BC ####[facility] Pkyaqiwcej[address] [place], [place] [address]Dr. Srtuhi Arechiga EO # 0.2 103/ul Normal 0.0-0.7 [facility] Comment on above: Performed By: #### C BC ####[facility] Nmaobqnsrm[address] [place], [place] [address]Dr. Sruthi Arechiga Eosinophils/100 WBC (Bld) 2.6 % Normal 0.9-7.0 [facility] Comment on above: Performed By: #### C BC ####[facility] [address]ncxbv[address] [place], [place] [address]Dr. Sruthi Arechiga Erythrocyte distribution width (RBC) [Ratio] 13.3 % Normal 11.0-15.0 [facility] Comment on above: Performed By: #### C BC ####[facility] Iwmwfdofme[address] [place], [place] [address]Dr. Sruthi Arechiga Hematocrit (Bld) [Volume fraction] 31.3 % Critically low 36.0-48.0 [facility] Comment on above: Performed By: #### C BC ####[facility] Xolynxoooy[address] [place], [place] [address]Dr. Sruthi Arechiga Hemoglobin (Bld) [Mass/Vol] 9.9 g/dL Critically low 12.0-16.0 [facility] Comment on above: Performed By: #### C BC ####[facility] Hwacetcipv[address] [place] [address]DrIndu Arechiga IG # 0.07 10e3/ul Critically high 0.00-0.03 [facility] Comment on above: Performed By: #### C BC ####[facility] Seqancfnkt[address] [place] [address]DrIndu Arechiga IG % 0.8 % Critically high 0.0-0.5 [facility] Comment on above: Performed By: #### C BC ####[facility] Idprxjzjps[address] [place], [place] [address]DrIndu Arechiga LYMPH # 2.1 103/ul Normal 1.2-3.8 [facility] Comment on above: Performed By: #### C BC ####[facility] [address]nrt[address] [place], [place] [address]DrIndu Arechiga Lymphocytes/100 WBC (Bld) 22.5 % Normal 20.5-60.0 [facility] Comment on above: Performed By: #### C BC ####[facility] Letqzjrgl[address] [place], [place] [address]DrIndu Arechiga MANUAL DIFF REQ NO Normal [facility] Comment on above: Performed By: #### C BC ####[facility] [address]spcrhql[address] [place] [address]DrIndu Arechiga MCH (RBC) [Entitic mass] 27.0 pg Normal 26.7-34.0 [facility] Comment on above: Performed By: #### C BC ####[facility] [address]znsygmxlf[address] [place], [place] [address]DrIndu Arechiga MCHC (RBC) [Mass/Vol] 31.6 g/dL Normal 29.9-35.2 [facility] Comment on above: Performed By: #### C BC ####[facility] [address]xkpchtqf[address] [place], [place] [address]DrIndu Arechiga MCV (RBC) [Entitic vol] 85.3 fL Normal 81.0-99.0 [facility] Comment on above: Performed By: #### C BC ####[facility] [address]wjjh[address] [place] [address]DrIndu Sruthi Arechiga MONO # 1.2 103/ul Critically high 0.3-0.8 [facility] Comment on above: Performed By: #### C BC ####[facility] [address]oyvadc[address] [place] [address]DrIndu Kamalasven Arechiga Monocytes/100 WBC (Bld) 12.9 % Critically high 1.7-12.0 [facility] Comment on above: Performed By: #### C BC ####[facility] [address]rzvt[address]pgom[address] [place], [place] [address]Dr. Sruthi Arechiga NEUT # 5.7 103/ul Normal 1.4-6.5 [facility] Comment on above: Performed By: #### C BC ####[facility] F[address]njukl[address] [place], [place] [address]Dr. Sruthi Arechiga Neutrophils/100 WBC (Bld) 60.8 % Normal 43.0-75.0 [facility] Comment on above: Performed By: #### C BC ####[facility] [address]ofydhuavx[address] [place], [place] [address]DrIndu Sruthi Hawk Platelet mean volume (Bld) [Entitic vol] 11.2 fL Normal 9.5-13.5 [facility] Comment on above: Performed By: #### C BC ####[facility] [address]iaelhirrb[address] [place], [place] [address]Dr. Kamalasven Hawk PLT 213 103/ul Normal 150-450 [facility] Comment on above: Performed By: #### C BC ####[facility] [address] [place], [place] [address]DrIndu Arechiga RBC 3.67 106/ul Critically low 4.20-5.40 [facility] Comment on above: Performed By: #### C BC ####[facility] Urs[address]padlm[address] [place], [place] [address]DrIndu Arechiga WBC 9.3 103/ul Normal 4.0-11.0 [facility] Comment on above: Performed By: #### C BC ####[facility] [address]qc[address] [place] [id number]. Sruthi Arechiga POINT OF CARE GLUCOSEon 06-11 Glucose [Mass/Vol] 164 mg/dL Critically high 74-106 [facility] Comment on above: Performed By: #### C VDTBH #### [facility] [address] [address] [address] Sruthi Arechiga Glucose [Mass/Vol] 303 mg/dL Critically high 74-106 [facility] Comment on above: Performed By: #### P OCGLUC #### [facility] [address] [address] [address] Sruthi Arechiga Glucose [Mass/Vol] 278 mg/dL Critically high -106 [facility] Comment on above: Performed By: #### C VDTBH #### [facility] [address] [address] [address] Sruthi Arechiga PROF CHEM 8 (BAS METB)on Anion gap [Moles/Vol] 9.9 mmol/L Normal [facility] Comment on above: Performed By: #### B MP ####[facility] [address] [address]DrIndu Arechiga Calcium [Mass/Vol] 8.7 mg/dL Normal 8.5-10.1 [facility] Comment on above: Performed By: #### B MP ####[facility] [address] [address]DrIndu Arechiga Chloride [Moles/Vol] 100 mmol/L Normal 98-107 [facility] Comment on above: Performed By: #### B MP ####[facility] [address] [address]DrIndu Arechiga CO2 [Moles/Vol] 28.4 mmol/L Normal 21.0-32.0 [facility] Comment on above: Performed By: #### B MP ####[facility] [address] [address]Dr. Sruthi Arechiga Creatinine [Mass/Vol] 0.99 mg/dL Normal 0.55-1.02 [facility] Comment on above: Performed By: #### B MP ####[facility] [address] [address]Dr. Sruthi Arechiga EGFR-AF GEORGIAN >60 Normal >=60 [facility] Comment on above: Performed By: #### B MP ####[facility] [address] [place], [place] [address]Dr. Sruthi Arechiga EGFR-NON AF GEORGIAN 56 mL/min/1.73m2 Critically low >=60 [facility] Comment on above: Performed By: #### B MP ####[facility] [address] [place], [place] [address]Dr. Sruthi Arechiga Glucose [Mass/Vol] 174 mg/dL Critically high 74-106 T [facility] Comment on above: Performed By: #### B MP ####[facility] [address] [place], [place] [address]Dr. Sruthi Arechiga Potassium [Moles/Vol] 4.3 mmol/L Normal 3.5-5.1 [facility] Comment on above: Performed By: #### B MP ####[facility] [address] [place], [place] [address]Dr. Sruthi Arechiga Sodium [Moles/Vol] 134 mmol/L Critically low 136-145 [facility] Comment on above: Performed By: #### B MP ####[facility] [address] [place], [place] [address]Dr. Sruthi Arechiga Urea nitrogen [Mass/Vol] 22.0 mg/dL Critically high 7.0-18.0 [facility] Comment on above: Performed By: #### B MP ####[facility] [address] [place], [place] [address]Dr. Sruthi Arechiga Urea nitrogen/Creatinine [Mass ratio] 22.2 mg/mg Normal [facility] Comment on above: Performed By: #### B MP ####[facility] [address] [place], [place] [address]Dr. Sruthi Arechiga BNPon 07-04-2022 Natriuretic peptide B (Bld) [Mass/Vol] 1822.0 pg/mL Critically high <=900.0 The [facility] Comment on above: Performed By: #### C BC #### [facility] Laboratory [address] [place] [address] Dr. Sruthi Arechiga CBC AUTO DIFFon 07-04-2022 BASO # 0.0 103/ul Normal 0.0-0.1 [facility] Comment on above: Performed By: #### C BC #### [facility] [address] [place] [address] Dr. Sruthi Arechiga Basophils/100 WBC (Bld) 0.4 % Normal 0.2-2.0 [facility] Comment on above: Performed By: #### C BC #### [facility] [address] [place] [address] Dr. Sruthi Arechiga EO # 0.2 103/ul Normal 0.0-0.7 The [facility] Comment on above: Performed By: #### C BC #### [facility] [address] [place] [address] Dr. Sruthi Arechiga Eosinophils/100 WBC (Bld) 2.4 % Normal 0.9-7.0 [facility] Comment on above: Performed By: #### C BC #### [facility] [address] [place] [address] Dr. Sruthi Arechiga Erythrocyte distribution width (RBC) [Ratio] 13.5 % Normal 11.0-15.0 The [facility] Comment on above: Performed By: #### C BC #### [facility] [address] [place] [address] Dr. Sruthi Arechiga Hematocrit (Bld) [Volume fraction] 36.4 % Normal 36.0-48.0 The [facility] Comment on above: Performed By: #### C BC #### [facility] [address] [place] [address] Dr. Sruthi Arechiga Hemoglobin (Bld) [Mass/Vol] 11.6 g/dL Critically low 12.0-16.0 The [facility] Comment on above: Performed By: #### C BC #### [facility] [address] [address] [address] Sruthi Arechiga IG # 0.11 10e3/ul Critically high 0.00-0.03 [facility] Comment on above: Performed By: #### C BC #### [facility] [address] [address] [address] Sruthi Arechiga IG % 1.2 % Critically high 0.0-0.5 [facility] Comment on above: Performed By: #### C BC #### [facility] [address] [address] [address] Sruthi Arechiga LYMPH # 1.7 103/ul Normal 1.2-3.8 The [facility] Comment on above: Performed By: #### C BC #### [facility] [address] [place] [address] Dr. Sruthi Arechiga Lymphocytes/100 WBC (Bld) 19.0 % Critically low 20.5-60.0 [facility] Comment on above: Performed By: #### C BC #### [facility] [address] [place] [address] Dr. Sruthi Arechiga MANUAL DIFF REQ NO Normal [facility] Comment on above: Performed By: #### C BC #### [facility] [address] [place] [address] Dr. Sruthi Arechiga MCH (RBC) [Entitic mass] 27.3 pg Normal 26.7-34.0 [facility] Comment on above: Performed By: #### C BC #### [facility] [address] [place] [address] Dr. Sruthi Arechiga MCHC (RBC) [Mass/Vol] 31.9 g/dL Normal 29.9-35.2 The [facility] Comment on above: Performed By: #### C BC #### [facility] [address] [place] [address] Dr. Sruthi Arechiga MCV (RBC) [Entitic vol] 85.6 fL Normal 81.0-99.0 [facility] Comment on above: Performed By: #### C BC #### [facility] [address] [place] [address] Dr. Sruthi Arechiga MONO # 1.1 103/ul Critically high 0.3-0.8 [facility] Comment on above: Performed By: #### C BC #### [facility] [address] [place] [address] Dr. Sruthi Arechiga Monocytes/100 WBC (Bld) 11.9 % Normal 1.7-12.0 The [facility] Comment on above: Performed By: #### C BC #### [facility] [address] [place] [address] Dr. Sruthi Arechiga NEUT # 6.0 103/ul Normal 1.4-6.5 The [facility] Comment on above: Performed By: #### C BC #### [facility] [address] [place] [address] Dr. Sruthi Arechiga Neutrophils/100 WBC (Bld) 65.1 % Normal 43.0-75.0 The [facility] Comment on above: Performed By: #### C BC #### [facility] [address] [place] [address] Dr. Sruthi Arechiga Platelet mean volume (Bld) [Entitic vol] 10.7 fL Normal 9.5-13.5 The [facility] Comment on above: Performed By: #### C BC #### [facility] [address] [place] [address] Dr. Sruthi Arechiga PLT 264 103/ul Normal 150-450 [facility] Comment on above: Performed By: #### C BC #### [facility] [address] [place] [address] Dr. Sruthi Arechiga RBC 4.25 106/ul Normal 4.20-5.40 The [facility] Comment on above: Performed By: #### C BC #### [facility] [address] [place] [address] Dr. Sruthi Arechiga WBC 9.2 103/ul Normal 4.0-11.0 The [facility] Comment on above: Performed By: #### C BC #### [facility] [address] [place] [address] Dr. Sruthi Arechiga Covid-19 PCR (CVDTB)on 06-11 SARS-CoV-2 (COVID-19) RNA KOLE+probe Ql (Unsp spec) Not detected Normal NOT DETECTED The [facility] Comment on above: Result Comment: When [...] for this test is supported by the [place] of Health and Human Service's declaration that [...] be used). Performed By: #### C VDTB ####[facility] [address] [address]Dr. Sruthi Arechiga ER URINE PROFILEon Bilirubin Ql (U) Negative Normal NEGATIVE [facility] Comment on above: Performed By: #### C VDTBH #### [facility] [address] [place] [address] Dr. Sruthi Arechiga Clarity (U) CLEAR Normal CLEAR [facility] Comment on above: Performed By: #### C VDTBH #### [facility] [address] [place] [address] Dr. Sruthi Arechiga Color (U) LT. YELLOW Normal YELLOW [facility] Comment on above: Performed By: #### C VDTBH #### [facility] [address] [place] [address] Dr. Sruthi Arechiga ERUJIHAND A micrscopic examination will be performed if indicated. Normal The [facility] Comment on above: Performed By: #### C VDTBH #### [facility] [address] [place] [address] Dr. Sruthi Arechiga Glucose Ql (U) >1000 Abnormal NEGATIVE [facility] Comment on above: Performed By: #### C VDTBH #### [facility] [address] [place] [address] Dr. Sruthi Arechiga Hemoglobin Ql (U) Negative Normal NEGATIVE [facility] Comment on above: Performed By: #### C VDTBH #### [facility] [address] [place] [address] Dr. Sruthi Arechiga Ketones Ql (U) Negative Normal NEGATIVE [facility] Comment on above: Performed By: #### C VDTBH #### [facility] [address] [place] [address] Dr. Sruthi Arechiga LEUKOCYTES SMALL Abnormal NEGATIVE [facility] Comment on above: Performed By: #### C VDTBH #### [facility] [address] [place] [address] Dr. Sruthi Arechiga Nitrite Ql (U) Negative Normal NEGATIVE [facility] Comment on above: Performed By: #### C VDTBH #### [facility] [address] [place] [address] Dr. Sruthi Arechiga pH (U) 6.0 [pH] Normal 5-9 [facility] Comment on above: Performed By: #### C VDTBH #### [facility] [address] [place] [address] Dr. Sruthi Arechiga SPEC GRAVITY <=1.005 Abnormal 1.005-<=1.02 5 [facility] Comment on above: Performed By: #### C VDTBH #### [facility] [address] [place] [address] Dr. Sruthi Arechiga UA PROTEIN Negative Normal NEGATIVE/ TRACE The [facility] Comment on above: Performed By: #### C VDTBH #### [facility] [address] [place] [address] Dr. Sruthi Arechiga UR MICRO IND INDICATED Normal [facility] Comment on above: Performed By: #### C VDTBH #### [facility] [address] [place] [address] Dr. Sruthi Arechiga Urobilinogen Qn (U) 0.2 {Willow'U}/dL Normal 0.2 - 1. 0 [facility] Comment on above: Performed By: #### C VDTBH #### [facility] [address] [address] [address] Sruthi Arechiga POINT OF CARE GLUCOSEon 06-11 Glucose [Mass/Vol] 262 mg/dL Critically high 74-106 T [facility] Comment on above: Performed By: #### P OCGLUC ####[facility] [address] [address]Dr. Sruthi Arechiga PROF CHEM 8 (BAS METB)on Anion gap [Moles/Vol] 13.0 mmol/L Normal [facility] Comment on above: Performed By: #### C BC #### [facility] [address] [address] [address] Sruthi Arechiga Calcium [Mass/Vol] 9.3 mg/dL Normal 8.5-10.1 [facility] Comment on above: Performed By: #### C BC #### [facility] [address] [address] [address] Sruthi Arechiga Chloride [Moles/Vol] 99 mmol/L Normal 98-107 [facility] Comment on above: Performed By: #### C BC #### [facility] [address] [address] [address] Sruthi Arechiga CO2 [Moles/Vol] 26.3 mmol/L Normal 21.0-32.0 [facility] Comment on above: Performed By: #### C BC #### [facility] [address] [address] [address] Sruthi Arechiga Creatinine [Mass/Vol] 0.95 mg/dL Normal 0.55-1.02 [facility] Comment on above: Performed By: #### C BC #### [facility] [address] [address] [address] Sruthi Arechiga EGFR-AF GEORGIAN >60 Normal >=60 [facility] Comment on above: Performed By: #### C BC #### [facility] [address] [address] [address] Sruthi Arechiga EGFR-NON AF GEORGIAN 58 mL/min/1.73m2 Critically low >=60 [facility] Comment on above: Performed By: #### C BC #### [facility] [address] [address] [address] Sruthi Arechiga Glucose [Mass/Vol] 331 mg/dL Critically high 74-106 T [facility] Comment on above: Performed By: #### C BC #### [facility] [address] [address] [address] Sruthi Arechiga Potassium [Moles/Vol] 4.3 mmol/L Normal 3.5-5.1 [facility] Comment on above: Performed By: #### C BC #### [facility] [address] [address] [address] Sruthi Arechiga Sodium [Moles/Vol] 134 mmol/L Critically low 136-145 Th [facility] Comment on above: Performed By: #### C BC #### [facility] [address] [address] [address] Sruthi Arechiga Urea nitrogen [Mass/Vol] 20.0 mg/dL Critically high 7.0-18.0 [facility] Comment on above: Performed By: #### C BC #### [facility] [address] [address] [address] Sruthi Arechiga Urea nitrogen/Creatinine [Mass ratio] 21.1 mg/mg Normal [facility] Comment on above: Performed By: #### C BC #### [facility] [address] [address] [address] Sruthi Arechiga TROPONIN, HIGH SENSITIVITYon 07-04-2022 HSTROP 113.1 pg/mL Critically high 4.0-51.3 [facility] Comment on above: Result Comment: CUT- OFF POINTS HAVE BEEN ESTABLISHED BASED ON THE FOURTH UNIVERSAL DEFINITIONS OF MYOCARDIAL INFARCTION. THE UPPER REFERENCE LIMIT (URL) OF TROPONIN, DEFINED THE 99TH PERCENTILE OF cTnI DISTRIBUTION IN A REFERENCE POPULATION, HAS BEEN CONFIRMED THE DECISION THRESHOLD FOR MA DIAGNOSIS. Performed By: #### C BC #### [facility] [address] [place] [address] Dr. Sruthi Arechiga HSTROP 126.6 pg/mL Critically high 4.0-51.3 [facility] Comment on above: Result Comment: CUT- OFF POINTS HAVE BEEN ESTABLISHED BASED ON THE FOURTH UNIVERSAL DEFINITIONS OF MYOCARDIAL INFARCTION. THE UPPER REFERENCE LIMIT (URL) OF TROPONIN, DEFINED THE 99TH PERCENTILE OF cTnI DISTRIBUTION IN A REFERENCE POPULATION, HAS BEEN CONFIRMED THE DECISION THRESHOLD FOR MA DIAGNOSIS. Performed By: #### C VDTBH #### [facility] [address] [place] [address] Dr. Sruthi Arechiga URINE MICROSCOPIC ONLYon BACTERIA LARGE Abnormal NONE SEEN The [facility] Comment on above: Performed By: #### C VDTBH #### [facility] [address] [place] [address] Dr. Sruthi Arechiga Bacteria identified Cx Nom (U) INDICATED Normal [facility] Comment on above: Performed By: #### C VDTBH #### [facility] [address] [place] [address] Dr. Sruthi rAechiga CAST NONE SEEN Normal NONE SEEN The [facility] Comment on above: Performed By: #### C VDTBH #### [facility] [address] [place] [address] Dr. Sruthi Arechiga Crystals LM Nom (Urine sed) NONE SEEN Normal NONE SEEN The [facility] Comment on above: Performed By: #### C VDTBH #### [facility] [address] [place] [address] Dr. Sruthi Arechiga Epithelial cells LM Ql (Urine sed) FEW Abnormal NONE SEEN /RARE The [facility] Comment on above: Performed By: #### C VDTBH #### [facility] [address] [place] [address] Dr. Sruthi Arechiga MUCOUS NONE SEEN Normal NONE SEEN The [facility] Comment on above: Performed By: #### C VDTBH #### [facility] [address] [place] [address] Dr. Sruthi Arechiga RBC NONE SEEN Abnormal 0-2 The [facility] Comment on above: Performed By: #### C VDTBH #### [facility] [address] [place], [place] [address] Dr. Sruthi Arechiga WBC 10-20 Abnormal NONE SEEN The [facility] Comment on above: Performed By: #### C VDTBH #### [facility] [address] [place], [place] [address] Dr. Sruthi Arechiga XR CHEST 1 Von [...] GERMAIN COY Date: 2022-07-04 11:53 Normal The [facility] CBC COMPLETE BLOOD COUNTon 0 07-03-2022 Erythrocyte distribution width (RBC) [Ratio] 13.4 % Normal 11.5-15.0 The [facility] Comment on above: Order Comment: No: D o not add to previous draw Performed By: #### [id number] #### [facility] [address] [facility]. [address] Hematocrit (Bld) [Volume fraction] 33.6 % Low 36.0-45.0 [facility] Comment on above: Order Comment: No: D o not add to previous draw Performed By: #### 8 [id number] #### [facility] [address] [facility] [address], [facility] Hemoglobin (Bld) [Mass/Vol] 10.6 g/dL Low 12.0-15.0 [facility] Comment on above: Order Comment: No: D o not add to previous draw Performed By: #### 8 [id number] #### [facility] [address] [facility] [place] [address], [facility] MCH (RBC) [Entitic mass] 26.6 pg Low 27.0-33.0 The [facility] Comment on above: Order Comment: No: D o not add to previous draw Performed By: #### 8 [id number] #### [facility] [address] [place] [address], [facility] MCHC (RBC) [Mass/Vol] 31.5 g/dL Low 32.0-35.0 [facility] Comment on above: Order Comment: No: D o not add to previous draw Performed By: #### 8 [id number] #### [facility] [address] [place] [address], [facility] MCV (RBC) [Entitic vol] 84.4 fL Normal 82.0-98.0 [facility] Comment on above: Order Comment: No: D o not add to previous draw Performed By: #### 8 [id number] #### [facility] [address] [facility] [place] [address], [facility] Nucleated RBC/100 WBC (Bld) [Ratio] 0 % Normal 0-0 [facility] Comment on above: Order Comment: No: D o not add to previous draw Performed By: #### 8 [id number] #### [facility] [address] [facility]. [address] [id number], [facility] PLAT CNT 247 10*3/uL Normal 150-400 [facility] Comment on above: Order Comment: No: D o not add to previous draw Performed By: #### 8 [id number] #### [facility] [address] [facility] [place] [address], [facility] RBC (Bld) [#/Vol] 3.98 10*6/uL Normal 3.80-5.00 [facility] Comment on above: Order Comment: No: D o not add to previous draw Performed By: #### 8 [id number] #### [facility] [address] [facility] [address] [id number], [facility] WBC (Bld) [#/Vol] 10.25 10*3/uL Normal 4.00-10.60 [facility] Comment on above: Order Comment: No: D o not add to previous draw Performed By: #### 8 [id number] #### [facility] [address] [place] [address], [facility] POC GLUCOSE LABon 07-03-2022 Glucose [Mass/Vol] 204 mg/dL High 70-100 The [facility] Comment on above: Performed By: #### 1 [id number], [id number], [id number] #### [facility] [address] [place] [address], [facility] Glucose [Mass/Vol] 135 mg/dL High 70-100 [facility] Comment on above: Performed By: #### 8 [id number] #### [facility] [address] UFH HEPARIN ASSAYon 07-03-20 22 UNFRACTIONATED HEPARIN <0.10 Critically low 0.30-0.70 The [facility] Comment on above: Result Comment: Resu lt checked and called. Accurately read back by Chanda @[facility] Rivaroxaban and Apixaban will interfere with the anti Xa assay used to monitor UFH and LMWH. Performed By: #### 3 [id number] #### [facility] [address] [place] [address], [facility] BASIC METABOLIC PANELon 06-11 Calcium [Mass/Vol] 8.8 mg/dL Normal 8.6-10.3 [facility] Comment on above: Order Comment: No: D o not add to previous draw Performed By: #### 8 [id number] #### [facility] [address] [place] [address], [facility] Chloride [Moles/Vol] 104 mmol/L Normal 98-107 The [facility] Comment on above: Order Comment: No: D o not add to previous draw Performed By: #### 8 [id number] #### [facility] [address] [place] [address], [facility] CO2 [Moles/Vol] 26 mmol/L Normal 21-31 The [facility] Comment on above: Order Comment: No: D o not add to previous draw Performed By: #### 8 [id number] #### [facility] [address] [place] [address], [place] Creatinine [Mass/Vol] 0.62 mg/dL Normal 0.60-1.20 [facility] Comment on above: Order Comment: No: D o not add to previous draw Performed By: #### 8 [id number] #### [facility] [address] [place] [address], [facility] GFR/1.73 sq M.predicted among non-blacks MDRD (S/P/Bld) [Vol rate/Area] mL/min/{1.73_m2} Normal >60 The [facility] Comment on above: Order Comment: No: D o not add to previous draw Result Comment: [facility]'s estimated glomerular filtration rate (eGFR) will no [...] individuals. Performed By: #### 8 [id number] #### [facility] [address] [place] [address], [place] Glucose [Mass/Vol] 212 mg/dL High 70-100 The [facility] Comment on above: Order Comment: No: D o not add to previous draw Performed By: #### 8 [id number] #### [facility] [address] [place] [address], [place] Potassium [Moles/Vol] 3.8 mmol/L Normal 3.5-5.1 [facility] Comment on above: Order Comment: No: D o not add to previous draw Performed By: #### 8 [id number] #### [facility] [address] Sodium [Moles/Vol] 134 mmol/L Low 136-145 [facility] Comment on above: Order Comment: No: D o not add to previous draw Performed By: #### 8 [id number] #### [facility] [address] Urea nitrogen [Mass/Vol] 15 mg/dL Normal 7-25 [facility] Comment on above: Order Comment: No: D o not add to previous draw Performed By: #### 8 [id number] #### [facility] [address] CBC W/DIFFon 07-02-2022 ABS IMM GRANS 0.1 10*3/uL Normal 0.0-0.2 The [facility] Comment on above: Order Comment: No: D o not add to previous draw Performed By: #### 8 5499 #### [facility] [address] ABS NEUTROPHILS 6.3 10*3/uL Normal 1.6-7.6 [facility] Comment on above: Order Comment: No: D o not add to previous draw Performed By: #### 8 5499 #### [facility] 3000 [facility]. [address] Basophils (Bld) [#/Vol] 0.0 10*3/uL Normal 0.0-0.2 [facility] Comment on above: Order Comment: No: D o not add to previous draw Performed By: #### 8 5499 #### [facility] 3000 [place] [address], [facility] Basophils/100 WBC (Bld) 0.3 % Normal 0.0-1.0 [facility] Comment on above: Order Comment: No: D o not add to previous draw Performed By: #### 8 5499 #### [facility] [address] [place] [address], [facility] Eosinophils (Bld) [#/Vol] 0.2 10*3/uL Normal 0.0-0.5 [facility] Comment on above: Order Comment: No: D o not add to previous draw Performed By: #### 8 5499 #### [facility] [address] [place] [address], [facility] Eosinophils/100 WBC (Bld) 2.3 % Normal 0.0-6.0 [facility] Comment on above: Order Comment: No: D o not add to previous draw Performed By: #### 8 5499 #### [facility] [address] [place] [address], [facility] Erythrocyte distribution width (RBC) [Ratio] 13.5 % Normal 11.5-15.0 [facility] Comment on above: Order Comment: No: D o not add to previous draw Performed By: #### 8 5499 #### [facility] [address] [place] [address], [facility] Hematocrit (Bld) [Volume fraction] 31.3 % Low 36.0-45.0 [facility] Comment on above: Order Comment: No: D o not add to previous draw Performed By: #### 8 5499 #### [facility] [address] [place] [address], [facility] Hemoglobin (Bld) [Mass/Vol] 10.2 g/dL Low 12.0-15.0 [facility] Comment on above: Order Comment: No: D o not add to previous draw Performed By: #### 8 5499 #### [facility] [address] [place] [address], [facility] IMMATURE GRANS 0.8 % Normal 0.0-1.0 [facility] Comment on above: Order Comment: No: D o not add to previous draw Performed By: #### 8 5499 #### [facility] [address] [place] [address], [facility] Lymphocytes (Bld) [#/Vol] 1.9 10*3/uL Normal 1.2-4.0 [facility] Comment on above: Order Comment: No: D o not add to previous draw Performed By: #### 8 5499 #### [facility] [address] [place] [address], [facility] Lymphocytes/100 WBC (Bld) 19.4 % Low 20.0-45.0 [facility] Comment on above: Order Comment: No: D o not add to previous draw Performed By: #### 8 5499 #### [facility] [address] [place] [address], [facility] MCH (RBC) [Entitic mass] 27.5 pg Normal 27.0-33.0 [facility] Comment on above: Order Comment: No: D o not add to previous draw Performed By: #### 8 5499 #### [facility] [address] [place] [id number], [facility] MCHC (RBC) [Mass/Vol] 32.6 g/dL Normal 32.0-35.0 [facility] Comment on above: Order Comment: No: D o not add to previous draw Performed By: #### 8 5499 #### [facility] [address] [place] [address], [facility] MCV (RBC) [Entitic vol] 84.4 fL Normal 82.0-98.0 [facility] Comment on above: Order Comment: No: D o not add to previous draw Performed By: #### 8 5499 #### [facility] [address] [place] [id number], [facility] Monocytes (Bld) [#/Vol] 1.3 10*3/uL High 0.1-1.0 [facility] Comment on above: Order Comment: No: D o not add to previous draw Performed By: #### 8 5499 #### [facility] [address] [place] [address], [place] MONOS 13.1 % High 5.0-12.0 [facility] Comment on above: Order Comment: No: D o not add to previous draw Performed By: #### 8 5499 #### [facility] [address] [place] [address], [place] Neutrophils/100 WBC (Bld) 64.1 % Normal 40.0-72.0 [facility] Comment on above: Order Comment: No: D o not add to previous draw Performed By: #### 8 5499 #### [facility] [address] [place] [address], [place] Nucleated RBC/100 WBC (Bld) [Ratio] 0 % Normal 0-0 [facility] Comment on above: Order Comment: No: D o not add to previous draw Performed By: #### 8 5499 #### [facility] [address] [place] [address], [place] PLAT CNT 233 10*3/uL Normal 150-400 [facility] Comment on above: Order Comment: No: D o not add to previous draw Performed By: #### 8 5499 #### [facility] [address] [place] [address], [place] RBC (Bld) [#/Vol] 3.71 10*6/uL Low 3.80-5.00 [facility] Comment on above: Order Comment: No: D o not add to previous draw Performed By: #### 8 5499 #### [facility] [address] [place] [address], [place] WBC (Bld) [#/Vol] 9.85 10*3/uL Normal 4.00-10.60 [facility] Comment on above: Order Comment: No: D o not add to previous draw Performed By: #### 8 5499 #### [address] [place] [address], [facility] CTA ABDOMEN AND PELVISon CTA ABDOMEN AND PELVIS [facility] Department of Radiology [address] [place] [id number] ======== Patient Name: MARIMAR PATEL : 1955 Sex: F Age: Race: White Pt. Location: [id number] Patient Status: D Ordered Date: 07/02/2022 8:20:00 [...] achievable Electronically signed: Yuni Zhu. Transcribed by: [email or web address], User Resident: Electronically Signed by: YUNI ZHU @ 07/12/2022 01:12 PM Normal [facility] Comment on above: Order Comment: No: D o not add to previous draw No collection time noted on specimen or requisition. The collection time recorded is the time of receipt in the lab. CTA CHESTon 07-02-2022 CTA CHEST [facility] Department of Radiology [address] [place] [id number] ======== Patient Name: MARIMAR PATEL : 1955 Sex: F Age: Race: White Pt. Location: [id number] Patient Status: D Ordered Date: 07/02/2022 8:20:00 [...] 3 cusped view, anterior view and no DRAIN LAYER-CAU view are obtained in 3-D volume rendered [...] calcification. Electronically signed: Yuni Zhu. Transcribed by: [email or web address], User Resident: Electronically Signed by: YUNI ZHU @ 07/12/2022 01:06 PM Normal [facility] Comment on above: Order Comment: No: D o not add to previous draw No collection time noted on specimen or requisition. The collection time recorded is the time of receipt in the lab. Cardiovascular Lab Reporton 07-02-2022 Cardiovascular Lab Report [facility] Patient Name: Marimar Patel [facility] MR #: [id number] Department of Physician: Alex Kelly M.D. Division of Service Date: 07/01/2022 Cardiology Birthdate: 1955 Adult Cardiovascular Room #: [id number] [facility] [address] [facility]. [place] [address] Cardiovascular Laboratory Report CLINICAL PRESENTATION: The patient [...] ultrasound guidance and micropuncture access technique, a 6-Bel[place]ian sheath was placed in right common femoral [...] exchanges were made over the J-tip guidewire, 6-[place]ian JL4 was used to engage the left main coronary artery. A 6-[place]ian JR4 was used to engage the right coronary artery. A 6-[place]ian JR4 was used to engage the radial bypass graft to the D1 and the SVG to the OM2. The 6-[place]ian JR4 was also used to engage the [...] by: Doyle Betts M.D. 07/06/2022 05:00 P Dyole Betts M.D. Date Dict: 07/01/2022/03:48 P/Doyle Betts M.D. Date Trans: 07/02/2022 10:08 A/abdiaziz [id number] cc: Nik Bell M.D. [address] [place] [address] Normal [facility] MAGNESIUM BLOODon 07-02-2022 Magnesium [Mass/Vol] 1.9 mg/dL Normal 1.9-2.7 [facility] Comment on above: Order Comment: No: D o not add to previous draw Performed By: #### 8 5499 #### [facility] [address] [place] [address], [place] POC GLUCOSE LABon 07-02-2022 Glucose [Mass/Vol] 268 mg/dL High 70-100 [facility] Comment on above: Performed By: #### 8 5499 #### [facility] [address] [place] [address], [place] Glucose [Mass/Vol] 255 mg/dL High 70-100 [facility] Comment on above: Performed By: #### 8 5499 #### [facility] [address] [place] [address], [place] Glucose [Mass/Vol] 173 mg/dL High 70-100 [facility] Comment on above: Performed By: #### 8 5499 #### [facility] [address] [place] [address], [place] Glucose [Mass/Vol] 193 mg/dL High 70-100 [facility] Comment on above: Performed By: #### 1 0070, 82272, 99361 #### [facility] [address] [place] [address], [place] Glucose [Mass/Vol] 185 mg/dL High 70-100 [facility] Comment on above: Performed By: #### 1 0070, 81914, 34370 #### [facility] [address] [place] [address], [facility] UFH HEPARIN ASSAYon 07-02-20 22 UNFRACTIONATED HEPARIN <0.10 Critically low 0.30-0.70 [facility] Comment on above: Result Comment: RESU LTS CHECKED AND CALLED. ACCURATELY READ BACK BY Jessa Schaefer RN at 2200 PMW 07-02-22. Rivaroxaban and Apixaban will interfere with the anti Xa assay used to monitor UFH and LMWH. Performed By: #### 3 5200 #### [facility] [address] [place] [address], [facility] BASIC METABOLIC PANELon 06-11 Calcium [Mass/Vol] 8.5 mg/dL Low 8.6-10.3 [facility] Comment on above: Order Comment: No: D o not add to previous draw Performed By: #### 0 0071, 48005 #### [facility] [address] [place] [address], [facility] Chloride [Moles/Vol] 105 mmol/L Normal 98-107 [facility] Comment on above: Order Comment: No: D o not add to previous draw Performed By: #### 0 0071, 69416 #### [facility] [address] [place] [address], [facility] CO2 [Moles/Vol] 22 mmol/L Normal 21-31 [facility] Comment on above: Order Comment: No: D o not add to previous draw Performed By: #### 0 0071, 17598 #### [facility] [address] [place] [address], [facility] Creatinine [Mass/Vol] 0.57 mg/dL Low 0.60-1.20 [facility] Comment on above: Order Comment: No: D o not add to previous draw Performed By: #### 0 0071, 61866 #### [facility] [address] [place] [address], [facility] GFR/1.73 sq M.predicted among non-blacks MDRD (S/P/Bld) [Vol rate/Area] mL/min/{1.73_m2} Normal >60 [facility] Comment on above: Order Comment: No: D o not add to previous draw Result Comment: [facility]'s estimated glomerular filtration rate (eGFR) will no [...] of individuals. Performed By: #### 0 0071, 58839 #### [facility] [address] [place] [address], [facility] Glucose [Mass/Vol] 164 mg/dL High 70-100 [facility] Comment on above: Order Comment: No: D o not add to previous draw Performed By: #### 0 0071, 82363 #### [facility] [address] [place] [address], [facility] Potassium [Moles/Vol] 3.8 mmol/L Normal 3.5-5.1 [facility] Comment on above: Order Comment: No: D o not add to previous draw Performed By: #### 0 0071, 80714 #### [facility] [address] [place] [address], [place] Sodium [Moles/Vol] 137 mmol/L Normal 136-145 [facility] Comment on above: Order Comment: No: D o not add to previous draw Performed By: #### 0 0071, 15710 #### [facility] [address] [place] [address], [place] Urea nitrogen [Mass/Vol] 18 mg/dL Normal 7-25 [facility] Comment on above: Order Comment: No: D o not add to previous draw Performed By: #### 0 0071, 66713 #### [facility] [address] [facility] [address], [facility] CBC W/DIFFon 07-01-2022 ABS IMM GRANS 0.1 10*3/uL Normal 0.0-0.2 [facility] Comment on above: Order Comment: No: D o not add to previous draw Performed By: #### 8 5499 #### [facility] [address] [place] [address], [facility] ABS NEUTROPHILS 5.1 10*3/uL Normal 1.6-7.6 [facility] Comment on above: Order Comment: No: D o not add to previous draw Performed By: #### 8 5499 #### [facility] [address] [place] [address], [facility] Basophils (Bld) [#/Vol] 0.1 10*3/uL Normal 0.0-0.2 [facility] Comment on above: Order Comment: No: D o not add to previous draw Performed By: #### 8 5499 #### [facility] [address] [place] [address], [facility] Basophils/100 WBC (Bld) 0.6 % Normal 0.0-1.0 [facility] Comment on above: Order Comment: No: D o not add to previous draw Performed By: #### 8 5499 #### [facility] [address] [facility] [place] [id number], [facility] Eosinophils (Bld) [#/Vol] 0.3 10*3/uL Normal 0.0-0.5 [facility] Comment on above: Order Comment: No: D o not add to previous draw Performed By: #### 8 5499 #### [facility] [address] [place] [address], [facility] Eosinophils/100 WBC (Bld) 2.8 % Normal 0.0-6.0 [facility] Comment on above: Order Comment: No: D o not add to previous draw Performed By: #### 8 5499 #### [facility] [address] [place] [address], [facility] Erythrocyte distribution width (RBC) [Ratio] 13.3 % Normal 11.5-15.0 [facility] Comment on above: Order Comment: No: D o not add to previous draw Performed By: #### 8 5499 #### [facility] [address] [place] [address], [facility] Hematocrit (Bld) [Volume fraction] 32.6 % Low 36.0-45.0 [facility] Comment on above: Order Comment: No: D o not add to previous draw Performed By: #### 8 5499 #### [facility] [address] [place] [id number], [facility] Hemoglobin (Bld) [Mass/Vol] 10.6 g/dL Low 12.0-15.0 [facility] Comment on above: Order Comment: No: D o not add to previous draw Performed By: #### 8 5499 #### [facility] [address] [place] [address], [facility] IMMATURE GRANS 0.7 % Normal 0.0-1.0 [facility] Comment on above: Order Comment: No: D o not add to previous draw Performed By: #### 8 5499 #### [facility] [address] [place] [id number], [facility] Lymphocytes (Bld) [#/Vol] 2.4 10*3/uL Normal 1.2-4.0 [facility] Comment on above: Order Comment: No: D o not add to previous draw Performed By: #### 8 5499 #### [facility] [address] [place] [id number], [facility] Lymphocytes/100 WBC (Bld) 26.6 % Normal 20.0-45.0 [facility] Comment on above: Order Comment: No: D o not add to previous draw Performed By: #### 8 5499 #### [facility] [address] [place] [address], [facility] MCH (RBC) [Entitic mass] 27.0 pg Normal 27.0-33.0 [facility] Comment on above: Order Comment: No: D o not add to previous draw Performed By: #### 8 5499 #### [facility] [address] [place] [address], [facility] MCHC (RBC) [Mass/Vol] 32.5 g/dL Normal 32.0-35.0 [facility] Comment on above: Order Comment: No: D o not add to previous draw Performed By: #### 8 5499 #### [facility] [address] [place] [address], [facility] MCV (RBC) [Entitic vol] 83.0 fL Normal 82.0-98.0 [facility] Comment on above: Order Comment: No: D o not add to previous draw Performed By: #### 8 5499 #### [facility] [address] [place] [address], [facility] Monocytes (Bld) [#/Vol] 1.2 10*3/uL High 0.1-1.0 [facility] Comment on above: Order Comment: No: D o not add to previous draw Performed By: #### 8 5499 #### [facility] [address] [facility] [place] [id number], [facility] MONOS 13.0 % High 5.0-12.0 [facility] Comment on above: Order Comment: No: D o not add to previous draw Performed By: #### 8 5499 #### [facility] [address] [place] [address], [facility] Neutrophils/100 WBC (Bld) 56.3 % Normal 40.0-72.0 [facility] Comment on above: Order Comment: No: D o not add to previous draw Performed By: #### 8 5499 #### [facility] [address] [place] [address], [facility] Nucleated RBC/100 WBC (Bld) [Ratio] 0 % Normal 0-0 [facility] Comment on above: Order Comment: No: D o not add to previous draw Performed By: #### 8 5499 #### [facility] [address] [place] [address], [facility] PLAT CNT 247 10*3/uL Normal 150-400 [facility] Comment on above: Order Comment: No: D o not add to previous draw Performed By: #### 8 5499 #### [facility] [address] [place] [address], [facility] RBC (Bld) [#/Vol] 3.93 10*6/uL Normal 3.80-5.00 [facility] Comment on above: Order Comment: No: D o not add to previous draw Performed By: #### 8 5499 #### [facility] [address] [facility] [place] [address], [facility] WBC (Bld) [#/Vol] 9.05 10*3/uL Normal 4.00-10.60 [facility] Comment on above: Order Comment: No: D o not add to previous draw Performed By: #### 8 5499 #### [facility] [address] [facility] [place] [address], [facility] MAGNESIUM BLOODon 07-01-2022 Magnesium [Mass/Vol] 1.7 mg/dL Low 1.9-2.7 [facility] Comment on above: Order Comment: No: D o not add to previous draw Performed By: #### 0 0071, 82934 #### [facility] [address] [place] [address], [facility] POC GLUCOSE LABon 07-01-2022 Glucose [Mass/Vol] 253 mg/dL High 70-100 [facility] [place] [facility] Comment on above: Performed By: #### 8 5499 #### [facility] [address] [place] [address], [facility] Glucose [Mass/Vol] 160 mg/dL High 70-100 [facility] Comment on above: Performed By: #### 8 5499 #### [facility] [address] [place] [address], [facility] Glucose [Mass/Vol] 174 mg/dL High 70-100 [facility] Comment on above: Performed By: #### 8 5499 #### [facility] [address] [place] [address], [facility] Glucose [Mass/Vol] 185 mg/dL High 70-100 [facility] Comment on above: Performed By: #### 8 5499 #### [facility] [address] [place] [address], [facility] Glucose [Mass/Vol] 176 mg/dL High 70-100 [facility] Comment on above: Performed By: #### 8 5499 #### [facility] [address] [place] [address], [facility] UFH HEPARIN ASSAYon 07-01-20 22 UNFRACTIONATED HEPARIN 0.88 IU/mL High 0.30-0.70 [facility] Comment on above: Result Comment: Anadarko roxaban and Apixaban will interfere with the anti Xa assay used to monitor UFH and LMWH. Performed By: #### 3 5200 #### [facility] [address] [place] [address], [facility] BASIC METABOLIC PANELon 08-2 Calcium [Mass/Vol] 8.5 mg/dL Low 8.6-10.3 [facility] Comment on above: Order Comment: No: D o not add to previous draw Performed By: #### 1 0070, 63345, 37082 #### [facility] [address] [place] [id number], [facility] Chloride [Moles/Vol] 103 mmol/L Normal 98-107 [facility] Comment on above: Order Comment: No: D o not add to previous draw Performed By: #### 1 0070, 94229, 38329 #### [facility] [address] [place] [address], [place] CO2 [Moles/Vol] 25 mmol/L Normal 21-31 [facility] Comment on above: Order Comment: No: D o not add to previous draw Performed By: #### 1 0070, 73100, 31012 #### [facility] [address] [place] [id number], [facility] Creatinine [Mass/Vol] 0.50 mg/dL Low 0.60-1.20 [facility] Comment on above: Order Comment: No: D o not add to previous draw Performed By: #### 1 0, 40058, 28312 #### [facility] [address] [place] [address], [place] GFR/1.73 sq M.predicted among non-blacks MDRD (S/P/Bld) [Vol rate/Area] mL/min/{1.73_m2} Normal >60 [facility] Comment on above: Order Comment: No: D o not add to previous draw Result Comment: [facility]'s estimated glomerular filtration rate (eGFR) will no [...] of individuals. Performed By: #### 1 0070, 29022, 57441 #### [facility] [address] [place] [address], [place] Glucose [Mass/Vol] 166 mg/dL High 70-100 [facility] Comment on above: Order Comment: No: D o not add to previous draw Performed By: #### 1 0, 29110, 25790 #### [facility] [address] [facility]. [address] Potassium [Moles/Vol] 3.3 mmol/L Low 3.5-5.1 [facility] Comment on above: Order Comment: No: D o not add to previous draw Performed By: #### 1 0, 28596, 58760 #### [facility] [address] [facility]. [address] Sodium [Moles/Vol] 138 mmol/L Normal 136-145 [facility] Comment on above: Order Comment: No: D o not add to previous draw Performed By: #### 1 0, 06614, 88191 #### [facility] [address] Urea nitrogen [Mass/Vol] 17 mg/dL Normal 7-25 [facility] Comment on above: Order Comment: No: D o not add to previous draw Performed By: #### 1 0, 16178, 12091 #### [facility] [address] CBC W/DIFFon 06-30-2022 ABS IMM GRANS 0.1 10*3/uL Normal 0.0-0.2 [facility] Comment on above: Order Comment: No: D o not add to previous draw No collection time noted on specimen or requisition. The collection time recorded is the time of receipt in the lab. Performed By: #### 3 5200 #### [facility] [address] ABS NEUTROPHILS 4.4 10*3/uL Normal 1.6-7.6 [facility] Comment on above: Order Comment: No: D o not add to previous draw No collection time noted on specimen or requisition. The collection time recorded is the time of receipt in the lab. Performed By: #### 3 5200 #### [facility] [address] [place] [address], [facility] Basophils (Bld) [#/Vol] 0.1 10*3/uL Normal 0.0-0.2 [facility] Comment on above: Order Comment: No: D o not add to previous draw No collection time noted on specimen or requisition. The collection time recorded is the time of receipt in the lab. Performed By: #### 3 5200 #### [facility] [address] [place] [address], [facility] Basophils/100 WBC (Bld) 0.6 % Normal 0.0-1.0 [facility] Comment on above: Order Comment: No: D o not add to previous draw No collection time noted on specimen or requisition. The collection time recorded is the time of receipt in the lab. Performed By: #### 3 5200 #### [facility] [address] [place] [address], [facility] Eosinophils (Bld) [#/Vol] 0.3 10*3/uL Normal 0.0-0.5 [facility] Comment on above: Order Comment: No: D o not add to previous draw No collection time noted on specimen or requisition. The collection time recorded is the time of receipt in the lab. Performed By: #### 3 5200 #### [facility] [address] [place] [address], [facility] Eosinophils/100 WBC (Bld) 3.3 % Normal 0.0-6.0 [facility] Comment on above: Order Comment: No: D o not add to previous draw No collection time noted on specimen or requisition. The collection time recorded is the time of receipt in the lab. Performed By: #### 3 5200 #### [facility] [address] Erythrocyte distribution width (RBC) [Ratio] 13.2 % Normal 11.5-15.0 [facility] Comment on above: Order Comment: No: D o not add to previous draw No collection time noted on specimen or requisition. The collection time recorded is the time of receipt in the lab. Performed By: #### 3 5200 #### [facility] [address] [place] [address], [facility] Hematocrit (Bld) [Volume fraction] 35.3 % Low 36.0-45.0 [facility] Comment on above: Order Comment: No: D o not add to previous draw No collection time noted on specimen or requisition. The collection time recorded is the time of receipt in the lab. Performed By: #### 3 5200 #### [facility] [address] [place] [address], [facility] Hemoglobin (Bld) [Mass/Vol] 11.2 g/dL Low 12.0-15.0 [facility] Comment on above: Order Comment: No: D o not add to previous draw No collection time noted on specimen or requisition. The collection time recorded is the time of receipt in the lab. Performed By: #### 3 5200 #### [facility] [address] IMMATURE GRANS 0.7 % Normal 0.0-1.0 [facility] Comment on above: Order Comment: No: D o not add to previous draw No collection time noted on specimen or requisition. The collection time recorded is the time of receipt in the lab. Performed By: #### 3 5200 #### [facility] [address] [place] [address], [facility] Lymphocytes (Bld) [#/Vol] 2.3 10*3/uL Normal 1.2-4.0 [facility] Comment on above: Order Comment: No: D o not add to previous draw No collection time noted on specimen or requisition. The collection time recorded is the time of receipt in the lab. Performed By: #### 3 5200 #### [facility] [address] [place] [address], [facility] Lymphocytes/100 WBC (Bld) 28.1 % Normal 20.0-45.0 [facility] Comment on above: Order Comment: No: D o not add to previous draw No collection time noted on specimen or requisition. The collection time recorded is the time of receipt in the lab. Performed By: #### 3 5200 #### [facility] [address] [place] [address], [facility] MCH (RBC) [Entitic mass] 26.3 pg Low 27.0-33.0 [facility] Comment on above: Order Comment: No: D o not add to previous draw No collection time noted on specimen or requisition. The collection time recorded is the time of receipt in the lab. Performed By: #### 3 5200 #### [facility] [address] MCHC (RBC) [Mass/Vol] 31.7 g/dL Low 32.0-35.0 [facility] Comment on above: Order Comment: No: D o not add to previous draw No collection time noted on specimen or requisition. The collection time recorded is the time of receipt in the lab. Performed By: #### 3 5200 #### [facility] [address] MCV (RBC) [Entitic vol] 82.9 fL Normal 82.0-98.0 [facility] Comment on above: Order Comment: No: D o not add to previous draw No collection time noted on specimen or requisition. The collection time recorded is the time of receipt in the lab. Performed By: #### 3 5200 #### [facility] [address] [place] [address], [facility] Monocytes (Bld) [#/Vol] 1.1 10*3/uL High 0.1-1.0 [facility] Comment on above: Order Comment: No: D o not add to previous draw No collection time noted on specimen or requisition. The collection time recorded is the time of receipt in the lab. Performed By: #### 3 5200 #### [facility] [address] [facility] [place] [address], [facility] MONOS 13.3 % High 5.0-12.0 [facility] Comment on above: Order Comment: No: D o not add to previous draw No collection time noted on specimen or requisition. The collection time recorded is the time of receipt in the lab. Performed By: #### 3 5200 #### [facility] [address] [place] [address], [facility] Neutrophils/100 WBC (Bld) 54.0 % Normal 40.0-72.0 [facility] Comment on above: Order Comment: No: D o not add to previous draw No collection time noted on specimen or requisition. The collection time recorded is the time of receipt in the lab. Performed By: #### 3 5200 #### [facility] [address] [facility] [place] [address], [facility] Nucleated RBC/100 WBC (Bld) [Ratio] 0 % Normal 0-0 [facility] Comment on above: Order Comment: No: D o not add to previous draw No collection time noted on specimen or requisition. The collection time recorded is the time of receipt in the lab. Performed By: #### 3 5200 #### [facility] [address] [facility] [place] [address], [facility] PLAT CNT 256 10*3/uL Normal 150-400 [facility] Comment on above: Order Comment: No: D o not add to previous draw No collection time noted on specimen or requisition. The collection time recorded is the time of receipt in the lab. Performed By: #### 3 5200 #### [facility] [address] [facility] [place] [address], [facility] RBC (Bld) [#/Vol] 4.26 10*6/uL Normal 3.80-5.00 [facility] Comment on above: Order Comment: No: D o not add to previous draw No collection time noted on specimen or requisition. The collection time recorded is the time of receipt in the lab. Performed By: #### 3 5200 #### [facility] [address] [facility] [place] [address], [facility] WBC (Bld) [#/Vol] 8.18 10*3/uL Normal 4.00-10.60 [facility] Comment on above: Order Comment: No: D o not add to previous draw No collection time noted on specimen or requisition. The collection time recorded is the time of receipt in the lab. Performed By: #### 3 5200 #### [facility] [address] [facility]. [address] MAGNESIUM BLOODon 06-30-2022 Magnesium [Mass/Vol] 1.8 mg/dL Low 1.9-2.7 [facility] Comment on above: Order Comment: No: D o not add to previous draw Performed By: #### 1 0070, [id number], [id number] #### [facility] [address] [facility]. [address] POC GLUCOSE LABon 06-30-2022 Glucose [Mass/Vol] 266 mg/dL High 70-100 [facility] Comment on above: Performed By: #### 8 5499 #### [facility] [address] [facility]. [address] Glucose [Mass/Vol] 346 mg/dL High 70-100 [facility] Comment on above: Performed By: #### 1 0, 51008, 76476 #### [facility] [address] [facility]. [address] Glucose [Mass/Vol] 206 mg/dL High 70-100 [facility] Comment on above: Performed By: #### 1 0070, 61793, [id number] #### [facility] [address] [facility] [place] [address], [facility] TROPONIN-Ion 06-30-2022 Troponin I.cardiac [Mass/Vol] 1.03 ng/mL Critically high 0.00-0.04 [facility] Comment on above: Result Comment: M-NE EVIOUS CRITICAL RESULT REFERENCE RANGES: 0.00 - 0.04 ng/ml NORMAL 0.05 - 0.50 ng/ml INDETERMINATE > 0.50 ng/ml CONSISTENT WITH AN M.I. Performed By: #### 1 0070, 68434, 63080 #### [facility] [address] UFH HEPARIN ASSAYon 06-30-20 UNFRACTIONATED HEPARIN 0.70 IU/mL Normal 0.30-0.70 [facility] Comment on above: Result Comment: Anadarko roxaban and Apixaban will interfere with the anti Xa assay used to monitor UFH and LMWH. Performed By: #### 3 5200 #### [facility] [address] UNFRACTIONATED HEPARIN 0.61 IU/mL Normal 0.30-0.70 [facility] Comment on above: Result Comment: Anadarko roxaban and Apixaban will interfere with the anti Xa assay used to monitor UFH and LMWH. Performed By: #### 8 5499 #### [facility] [address] [facility]. [address] UNFRACTIONATED HEPARIN 0.85 IU/mL High 0.30-0.70 [facility] Comment on above: Result Comment: Racheal roxaban and Apixaban will interfere with the anti Xa assay used to monitor UFH and LMWH. Performed By: #### 3 1791 #### [facility] [address] [facility]. [address] CBC COMPLETE BLOOD COUNTon 0 06-29-2022 Erythrocyte distribution width (RBC) [Ratio] 13.4 % Normal 11.5-15.0 [facility] Comment on above: Order Comment: No: D o not add to previous draw Performed By: #### 8 [id number] #### [facility] [address] Hematocrit (Bld) [Volume fraction] 34.3 % Low 36.0-45.0 [facility] Comment on above: Order Comment: No: D o not add to previous draw Performed By: #### 8 5499 #### [facility] [address] [place] [address], [facility] Hemoglobin (Bld) [Mass/Vol] 11.3 g/dL Low 12.0-15.0 [facility] Comment on above: Order Comment: No: D o not add to previous draw Performed By: #### 8 5499 #### [facility] [address] [place] [address], [facility] MCH (RBC) [Entitic mass] 27.2 pg Normal 27.0-33.0 [facility] Comment on above: Order Comment: No: D o not add to previous draw Performed By: #### 8 5499 #### [facility] [address] [place] [address], [facility] MCHC (RBC) [Mass/Vol] 32.9 g/dL Normal 32.0-35.0 [facility] Comment on above: Order Comment: No: D o not add to previous draw Performed By: #### 8 5499 #### [facility] [address] [place] [id number], [facility] MCV (RBC) [Entitic vol] 82.7 fL Normal 82.0-98.0 [facility] Comment on above: Order Comment: No: D o not add to previous draw Performed By: #### 8 5499 #### [facility] [address] [place] [address], [facility] Nucleated RBC/100 WBC (Bld) [Ratio] 0 % Normal 0-0 [facility] Comment on above: Order Comment: No: D o not add to previous draw Performed By: #### 8 5499 #### [facility] [address] [place] [address], [facility] PLAT CNT 234 10*3/uL Normal 150-400 [facility] Comment on above: Order Comment: No: D o not add to previous draw Performed By: #### 8 5499 #### [facility] [address] [place] [id number], [facility] RBC (Bld) [#/Vol] 4.15 10*6/uL Normal 3.80-5.00 [facility] Comment on above: Order Comment: No: D o not add to previous draw Performed By: #### 8 5499 #### [facility] [address] [place] [id number], [facility] WBC (Bld) [#/Vol] 7.28 10*3/uL Normal 4.00-10.60 [facility] Comment on above: Order Comment: No: D o not add to previous draw Performed By: #### 8 5499 #### [facility] [address] [place] [id number], [facility] Erythrocyte distribution width (RBC) [Ratio] 13.3 % Normal 11.5-15.0 [facility] Comment on above: Order Comment: No: D o not add to previous draw No collection time noted on specimen or requisition. The collection time recorded is the time of receipt in the lab. Performed By: #### 3 5200 #### [facility] [address] [place] [address], [facility] Hematocrit (Bld) [Volume fraction] 33.4 % Low 36.0-45.0 [facility] Comment on above: Order Comment: No: D o not add to previous draw No collection time noted on specimen or requisition. The collection time recorded is the time of receipt in the lab. Performed By: #### 3 5200 #### [facility] [address] [place] [id number], [facility] Hemoglobin (Bld) [Mass/Vol] 10.8 g/dL Low 12.0-15.0 [facility] Comment on above: Order Comment: No: D o not add to previous draw No collection time noted on specimen or requisition. The collection time recorded is the time of receipt in the lab. Performed By: #### 3 5200 #### [facility] [address] MCH (RBC) [Entitic mass] 26.8 pg Low 27.0-33.0 [facility] Comment on above: Order Comment: No: D o not add to previous draw No collection time noted on specimen or requisition. The collection time recorded is the time of receipt in the lab. Performed By: #### 3 5200 #### [facility] [address] MCHC (RBC) [Mass/Vol] 32.3 g/dL Normal 32.0-35.0 [facility] Comment on above: Order Comment: No: D o not add to previous draw No collection time noted on specimen or requisition. The collection time recorded is the time of receipt in the lab. Performed By: #### 3 5200 #### [facility] [address] MCV (RBC) [Entitic vol] 82.9 fL Normal 82.0-98.0 [facility] Comment on above: Order Comment: No: D o not add to previous draw No collection time noted on specimen or requisition. The collection time recorded is the time of receipt in the lab. Performed By: #### 3 5200 #### [facility] [address] Nucleated RBC/100 WBC (Bld) [Ratio] 0 % Normal 0-0 [facility] Comment on above: Order Comment: No: D o not add to previous draw No collection time noted on specimen or requisition. The collection time recorded is the time of receipt in the lab. Performed By: #### 3 5200 #### [facility] [address] PLAT CNT 227 10*3/uL Normal 150-400 [facility] Comment on above: Order Comment: No: D o not add to previous draw No collection time noted on specimen or requisition. The collection time recorded is the time of receipt in the lab. Performed By: #### 3 5200 #### [facility] [address] [place] [address], [facility] RBC (Bld) [#/Vol] 4.03 10*6/uL Normal 3.80-5.00 [facility] Comment on above: Order Comment: No: D o not add to previous draw No collection time noted on specimen or requisition. The collection time recorded is the time of receipt in the lab. Performed By: #### 3 5200 #### [facility] [address] [place] [address], [facility] WBC (Bld) [#/Vol] 7.85 10*3/uL Normal 4.00-10.60 [facility] Comment on above: Order Comment: No: D o not add to previous draw No collection time noted on specimen or requisition. The collection time recorded is the time of receipt in the lab. Performed By: #### 3 5200 #### [facility] [address] CBC W/DIFFon 06-29-2022 ABS IMM GRANS 0.0 10*3/uL Normal 0.0-0.2 [facility] Comment on above: Order Comment: No co llection time noted on specimen or requisition. The collection timerecorded is the time of receipt in the lab. Performed By: #### 8 5499 #### [facility] [address] ABS NEUTROPHILS 5.2 10*3/uL Normal 1.6-7.6 [facility] Comment on above: Order Comment: No co llection time noted on specimen or requisition. The collection timerecorded is the time of receipt in the lab. Performed By: #### 8 5499 #### [facility] [address] [place] [address], [facility] Basophils (Bld) [#/Vol] 0.0 10*3/uL Normal 0.0-0.2 [facility] Comment on above: Order Comment: No co llection time noted on specimen or requisition. The collection timerecorded is the time of receipt in the lab. Performed By: #### 8 5499 #### [facility] [address] [place] [address], [facility] Basophils/100 WBC (Bld) 0.5 % Normal 0.0-1.0 [facility] Comment on above: Order Comment: No co llection time noted on specimen or requisition. The collection timerecorded is the time of receipt in the lab. Performed By: #### 8 5499 #### [facility] [address] [place] [address], [facility] Eosinophils (Bld) [#/Vol] 0.1 10*3/uL Normal 0.0-0.5 [facility] Comment on above: Order Comment: No co llection time noted on specimen or requisition. The collection timerecorded is the time of receipt in the lab. Performed By: #### 8 [id number] #### [facility] [address] [place] [address], [facility] Eosinophils/100 WBC (Bld) 1.3 % Normal 0.0-6.0 [facility] Comment on above: Order Comment: No co llection time noted on specimen or requisition. The collection timerecorded is the time of receipt in the lab. Performed By: #### 8 5499 #### [facility] [address] [place] [address], [facility] Erythrocyte distribution width (RBC) [Ratio] 13.3 % Normal 11.5-15.0 [facility] Comment on above: Order Comment: No co llection time noted on specimen or requisition. The collection timerecorded is the time of receipt in the lab. Performed By: #### 8 [id number] #### [facility] [address] [place] [address], [facility] Hematocrit (Bld) [Volume fraction] 34.0 % Low 36.0-45.0 [facility] Comment on above: Order Comment: No co llection time noted on specimen or requisition. The collection timerecorded is the time of receipt in the lab. Performed By: #### 8 5499 #### [facility] [address] [place] [address], [facility] Hemoglobin (Bld) [Mass/Vol] 11.4 g/dL Low 12.0-15.0 [facility] Comment on above: Order Comment: No co llection time noted on specimen or requisition. The collection timerecorded is the time of receipt in the lab. Performed By: #### 8 [id number] #### [facility] [address] IMMATURE GRANS 0.4 % Normal 0.0-1.0 [facility] Comment on above: Order Comment: No co llection time noted on specimen or requisition. The collection timerecorded is the time of receipt in the lab. Performed By: #### 8 [id number] #### [facility] [address] [place] [address], [facility] Lymphocytes (Bld) [#/Vol] 1.5 10*3/uL Normal 1.2-4.0 [facility] Comment on above: Order Comment: No co llection time noted on specimen or requisition. The collection timerecorded is the time of receipt in the lab. Performed By: #### 8 [id number] #### [facility] [address] [facility] [place] [address], [facility] Lymphocytes/100 WBC (Bld) 19.5 % Low 20.0-45.0 [facility] Comment on above: Order Comment: No co llection time noted on specimen or requisition. The collection timerecorded is the time of receipt in the lab. Performed By: #### 8 [id number] #### [facility] [address] [facility] [place] [address], [facility] MCH (RBC) [Entitic mass] 27.7 pg Normal 27.0-33.0 [facility] Comment on above: Order Comment: No co llection time noted on specimen or requisition. The collection timerecorded is the time of receipt in the lab. Performed By: #### 8 [id number] #### [facility] [address] MCHC (RBC) [Mass/Vol] 33.5 g/dL Normal 32.0-35.0 [facility] Comment on above: Order Comment: No co llection time noted on specimen or requisition. The collection timerecorded is the time of receipt in the lab. Performed By: #### 8 [id number] #### [facility] [address] [facility] [address] MCV (RBC) [Entitic vol] 82.7 fL Normal 82.0-98.0 [facility] Comment on above: Order Comment: No co llection time noted on specimen or requisition. The collection timerecorded is the time of receipt in the lab. Performed By: #### 8 [id number] #### [facility] [address] Monocytes (Bld) [#/Vol] 1.0 10*3/uL Normal 0.1-1.0 [facility] Comment on above: Order Comment: No co llection time noted on specimen or requisition. The collection timerecorded is the time of receipt in the lab. Performed By: #### 8 [id number] #### [facility] [address] MONOS 12.5 % High 5.0-12.0 [facility] Comment on above: Order Comment: No co llection time noted on specimen or requisition. The collection timerecorded is the time of receipt in the lab. Performed By: #### 8 [id number] #### [facility] [address] Neutrophils/100 WBC (Bld) 65.8 % Normal 40.0-72.0 [facility] Comment on above: Order Comment: No co llection time noted on specimen or requisition. The collection timerecorded is the time of receipt in the lab. Performed By: #### 8 [id number] #### [facility] [address] [facility]. [address] Nucleated RBC/100 WBC (Bld) [Ratio] 0 % Normal 0-0 [facility] Comment on above: Order Comment: No co llection time noted on specimen or requisition. The collection timerecorded is the time of receipt in the lab. Performed By: #### 8 [id number] #### [facility] [address] [place] [address], [facility] PLAT CNT 235 10*3/uL Normal 150-400 [facility] Comment on above: Order Comment: No co llection time noted on specimen or requisition. The collection timerecorded is the time of receipt in the lab. Performed By: #### 8 [id number] #### [facility] [address] [facility] [place] [address], [facility] RBC (Bld) [#/Vol] 4.11 10*6/uL Normal 3.80-5.00 [facility] Comment on above: Order Comment: No co llection time noted on specimen or requisition. The collection timerecorded is the time of receipt in the lab. Performed By: #### 8 [id number] #### [facility] [address] [facility]. [address] WBC (Bld) [#/Vol] 7.91 10*3/uL Normal 4.00-10.60 [facility] Comment on above: Order Comment: No co llection time noted on specimen or requisition. The collection timerecorded is the time of receipt in the lab. Performed By: #### 8 [id number] #### [facility] [address] [facility] [place] [address], [facility] COMP METABOLIC PANELon 06-29 Albumin [Mass/Vol] 2.9 g/dL Low 3.5-5.7 [facility] Comment on above: Order Comment: No: D o not add to previous draw No collection time noted on specimen or requisition. The collection time recorded is the time of receipt in the lab. Performed By: #### 3 1791 #### [facility] [address] [place] [address], [facility] ALKALINE PHOSPH 88 IU/L Normal 34-104 [facility] Comment on above: Order Comment: No: D o not add to previous draw No collection time noted on specimen or requisition. The collection time recorded is the time of receipt in the lab. Performed By: #### 3 179 #### [facility] [address] [place] [id number], [facility] ALT [Catalytic activity/Vol] 21 U/L Normal 7-52 [facility] Comment on above: Order Comment: No: D o not add to previous draw No collection time noted on specimen or requisition. The collection time recorded is the time of receipt in the lab. Performed By: #### 3 1791 #### [facility] [address] [place] [address], [facility] AST [Catalytic activity/Vol] 27 U/L Normal 13-39 [facility] Comment on above: Order Comment: No: D o not add to previous draw No collection time noted on specimen or requisition. The collection time recorded is the time of receipt in the lab. Performed By: #### 3 1791 #### [facility] [address] [place] [address], [facility] Bilirubin [Mass/Vol] 0.5 mg/dL Normal 0.3-1.0 [facility] Comment on above: Order Comment: No: D o not add to previous draw No collection time noted on specimen or requisition. The collection time recorded is the time of receipt in the lab. Performed By: #### 3 1791 #### [facility] [address] [place] [address], [facility] Calcium [Mass/Vol] 8.2 mg/dL Low 8.6-10.3 [facility] Comment on above: Order Comment: No: D o not add to previous draw No collection time noted on specimen or requisition. The collection time recorded is the time of receipt in the lab. Performed By: #### 3 1791 #### [facility] [address] [place] [address], [facility] Chloride [Moles/Vol] 101 mmol/L Normal 98-107 [facility] Comment on above: Order Comment: No: D o not add to previous draw No collection time noted on specimen or requisition. The collection time recorded is the time of receipt in the lab. Performed By: #### 3 1791 #### [facility] [address] [place] [address], [facility] CO2 [Moles/Vol] 22 mmol/L Normal 21-31 [facility] [facility] Comment on above: Order Comment: No: D o not add to previous draw No collection time noted on specimen or requisition. The collection time recorded is the time of receipt in the lab. Performed By: #### 3 1791 #### [facility] [address] [place] [address], [facility] Creatinine [Mass/Vol] 0.45 mg/dL Low 0.60-1.20 The [facility] Comment on above: Order Comment: No: D o not add to previous draw No collection time noted on specimen or requisition. The collection time recorded is the time of receipt in the lab. Performed By: #### 3 1791 #### [facility] [address] [place] [address], [facility] GFR/1.73 sq M.predicted among non-blacks MDRD (S/P/Bld) [Vol rate/Area] mL/min/{1.73_m2} Normal >60 [facility] Comment on above: Order Comment: No: D o not add to previous draw No collection time noted on specimen or requisition. The collection time recorded is the time of receipt in the lab. Result Comment: The [facility]'s estimated glomerular filtration rate (eGFR) will no [...] individuals. Performed By: #### 3 1791 #### [facility] [address] [facility] [address], [facility] Glucose [Mass/Vol] 278 mg/dL High 70-100 [facility] Comment on above: Order Comment: No: D o not add to previous draw No collection time noted on specimen or requisition. The collection time recorded is the time of receipt in the lab. Performed By: #### 3 1791 #### [facility] [address] [place] [address], [facility] Potassium [Moles/Vol] 3.8 mmol/L Normal 3.5-5.1 [facility] Comment on above: Order Comment: No: D o not add to previous draw No collection time noted on specimen or requisition. The collection time recorded is the time of receipt in the lab. Performed By: #### 3 1791 #### [facility] [address] [place] [address], [facility] Protein [Mass/Vol] 5.3 g/dL Low 6.0-8.3 [facility] Comment on above: Order Comment: No: D o not add to previous draw No collection time noted on specimen or requisition. The collection time recorded is the time of receipt in the lab. Performed By: #### 3 1791 #### [facility] [address] [place] [address], [facility] Sodium [Moles/Vol] 133 mmol/L Low 136-145 [facility] Comment on above: Order Comment: No: D o not add to previous draw No collection time noted on specimen or requisition. The collection time recorded is the time of receipt in the lab. Performed By: #### 3 1791 #### [address] Urea nitrogen [Mass/Vol] 19 mg/dL Normal 7-25 [facility] Comment on above: Order Comment: No: D o not add to previous draw No collection time noted on specimen or requisition. The collection time recorded is the time of receipt in the lab. Performed By: #### 3 1791 #### [address] CTA CHESTon 06-29-2022 CTA CHEST [facility] Department of Radiology [address] [place], [place] [id number] ======== Patient Name: MARIMAR PATEL : 1955 Sex: F Age: Race: White Pt. Location: [facility] Patient Status: E Ordered Date: 2022 [...] report. Electronically signed: Shane Baldwin. Transcribed by: [email or web address], User Resident: HILL RUSS Electronically Signed by: SHANE BALDWIN @ 06/29/2022 01:00 AM I personally read this/these film(s) with this resident Normal [facility] Comment on above: Order Comment: Pulmo nary Embolism HEMOGLOBIN A1Con 06-29-2022 Glucose [Moles/Vol] 111 mmol/L Normal [facility] Comment on above: Order Comment: No: D o not add to previous draw No collection time noted on specimen or requisition. The collection time recorded is the time of receipt in the lab. Performed By: #### 3 1791 #### [facility] [address] [place] [address], [facility] HbA1c (Bld) [Mass fraction] 5.5 % Normal 4.0-6.0 [facility] Comment on above: Order Comment: No: D o not add to previous draw No collection time noted on specimen or requisition. The collection time recorded is the time of receipt in the lab. Performed By: #### 3 1791 #### [facility] [address] [facility]. [address] LIPID PROFILEon 06-29-2022 Cholesterol [Mass/Vol] 223 mg/dL High 120-200 Th e [facility] Comment on above: Result Comment: CHOL ESTEROL REFERENCE RANGE: 20 YEARS AND OLDER CARDIOVASCULAR RISK Less than 200 mg/dl Low Risk 200 to 239 mg/dl Borderline Risk 240 mg/dl and greater High Risk Performed By: #### 3 1791 #### [facility] [address] Cholesterol in HDL [Mass/Vol] 28 mg/dL Normal 23-92 [facility] Comment on above: Result Comment: Slig ht variation in normal range could be due to gender and/or age. HDL CHOLESTEROL REFERENCE RANGE: 20 years and older Cardiovascular Risk > or =60 mg/dL Desirable 40 TO 59 mg/dL Low Risk <40 mg/dL High Risk Performed By: #### 3 1791 #### [facility] [address] [facility] [place] [address], [facility] Cholesterol in LDL [Mass/Vol] 138 mg/dL High 0-130 The [facility] Comment on above: Result Comment: LDL IS A CALCULATION LDL IS ONLY VALID IF THE TRIG IS LESS THAN 400. Performed By: #### 3 1791 #### [facility] [address] [facility] [place] [address], [facility] Cholesterol.total/Chol esterol in HDL [Mass ratio] 8.0 {ratio} High .0-4.5 [facility] Comment on above: Performed By: #### 3 1791 #### [facility] [address] [place] [address], [facility] NON-HDL CHOLESTEROL 195 mg/dL Normal [facility] Comment on above: Performed By: #### 3 1791 #### [facility] [address] [place] [address], [facility] Triglyceride [Mass/Vol] 285 mg/dL High 40-149 The [facility] Comment on above: Result Comment: TRIG LYCERIDE REFERENCE RANGE: 20 YEARS AND OLDER CARDIOVASCULAR RISK LESS THAN 150 mg/dl LOW RISK 150 TO 199 mg/dl BORDERLINE RISK 200 mg/dl AND GREATER HIGH RISK Performed By: #### 3 1 #### [facility] [address] [place] [address], [facility] VLDL CHOL 57 mg/dL High 0-40 [facility] Comment on above: Performed By: #### 3 1791 #### [facility] [address] [place] [address], [facility] POC GLUCOSE LABon 06-29-2022 Glucose [Mass/Vol] 190 mg/dL High 70-100 [facility] Comment on above: Performed By: #### 8 5499 #### [facility] [address] [place] [address], [place] Glucose [Mass/Vol] 256 mg/dL High 70-100 [facility] Comment on above: Performed By: #### 8 5499 #### [facility] [address] [place] [address], [place] Glucose [Mass/Vol] 444 mg/dL High 70-100 [facility] Comment on above: Performed By: #### 1 0070, 39200, 95554 #### [facility] [address] [facility]. [address] Glucose [Mass/Vol] 304 mg/dL High 70-100 [facility] Comment on above: Performed By: #### 1 0070, [id number], 10045 #### [facility] [address] POC SARS COV2 ANTIGEN NEGATI VEon 06-29-2022 POC SARS COV2 ANTIGEN NEG Negative Normal NEGATIVE [facility] Comment on above: Result Comment: Nega tive [...] antigen from SARS-CoV-2 in direct nasopharyngeal swab ([employer]) specimens from individuals who are suspected of [...] Accreditation. Performed By: #### 8 5499 #### [facility] [address] [facility]. [place] [id number], [facility] TROPONIN-Ion 06-29-2022 Troponin I.cardiac [Mass/Vol] 1.52 ng/mL Critically high 0.00-0.04 The [facility] Comment on above: Order Comment: No: D o not add to previous draw No collection time noted on specimen or requisition. The collection time recorded is the time of receipt in the lab. Result Comment: M-NE EVIOUS CRITICAL RESULT REFERENCE RANGES: 0.00 - 0.04 ng/ml NORMAL 0.05 - 0.50 ng/ml INDETERMINATE > 0.50 ng/ml CONSISTENT WITH AN M.I. Performed By: #### 3 5200 #### [facility] [address] Troponin I.cardiac [Mass/Vol] 1.77 ng/mL Critically high 0.00-0.04 [facility] Comment on above: Order [...] M.I. Performed By: #### 3 1791 #### [facility] [address] TSH3 WITH REFLEX FT4on 06-29 TSH 3RD GENERATION 1.96 uIU/mL Normal 0.34-5.60 [facility] Comment on above: Performed By: #### 3 1791 #### [facility] [address] [place] [address], [facility] UFH HEPARIN ASSAYon 06-29-20 22 UNFRACTIONATED HEPARIN 0.15 IU/mL Critically low 0.30-0.70 [facility] Comment on above: Result Comment: RESU LTS CHECKED AND CALLED. ACCURATELY READ BACK BY Isabela Shannon RN at 2220 PMW 06-29-22. Rivaroxaban and Apixaban will interfere with the anti Xa assay used to monitor UFH and LMWH. Performed By: #### 3 1791 #### [facility] [address] [place] [address], [facility] UNFRACTIONATED HEPARIN <0.10 Critically low 0.30-0.70 [facility] Comment on above: Result Comment: Resu lt checked and called. Accurately read back by JENNIFER WILLINGHAM RN @1404 06/29/22 Rivaroxaban and Apixaban will interfere with the anti Xa assay used to monitor UFH and LMWH. Performed By: #### 3 5200 #### [facility] [address] UNFRACTIONATED HEPARIN <0.10 Critically low 0.30-0.70 [facility] Comment on above: Result Comment: RESU LTS CHECKED AND CALLED. ACCURATELY READ BACK BY REG KILGORE RN @ 0531 Rivaroxaban and Apixaban will interfere with the anti Xa assay used to monitor UFH and LMWH. Performed By: #### 3 5200 #### [facility] [address] [facility] [address] APTTon 2022 aPTT Coag (Bld) [Time] 32.0 s Normal 25.0-35.0 e [facility] Comment on above: Result Comment: ALL RESULTS [...] PURPOSE. Performed By: #### 3 5200 #### [facility] [address] [facility] [place] [address], [facility] BNPon 2022 Natriuretic peptide B (Bld) [Mass/Vol] 3794.0 pg/mL Critically high <=900.0 [facility] Comment on above: Performed By: #### C BC #### [facility] [address] [place] [address] Dr. Sruthi Arechiga CARDIAC TONJA ADMITon 022 CK [Catalytic activity/Vol] 51 U/L Normal 26-192 [facility] Comment on above: Performed By: #### C BC #### [facility] [address] [place] [address] Dr. Sruthi Arechiga CK.MB [Mass/Vol] 2.23 ng/mL Normal <=3.60 [facility] Comment on above: Performed By: #### C BC #### [facility] [address] [place] [address] [address] Sruthi Arechiga HSTROP 705.8 pg/mL Critically high 4.0-51.3 [facility] Comment on above: Result Comment: CUT- OFF POINTS HAVE BEEN ESTABLISHED BASED ON THE FOURTH UNIVERSAL DEFINITIONS OF MYOCARDIAL INFARCTION. THE UPPER REFERENCE LIMIT (URL) OF TROPONIN, DEFINED THE 99TH PERCENTILE OF cTnI DISTRIBUTION IN A REFERENCE POPULATION, HAS BEEN CONFIRMED THE DECISION THRESHOLD FOR MA DIAGNOSIS. Performed By: #### C BC #### [facility] [address] [place] [address] Dr. Sruthi Arechiga DIMITRY 73 ng/mL Normal 9-82 The [facility] Comment on above: Performed By: #### C BC #### [facility] [address] [place] [address] Dr. Sruthi Arechiga CBC W MANUAL DIFFon 06-28-20 22 ATYPICAL LYMPH # Normal [facility] Comment on above: Performed By: #### C PITA ####[facility] [address] [place] [address]DrIndu Arechiga ATYPICAL LYMPH % Normal [facility] Comment on above: Performed By: #### C LIMAN ####[facility] [address] [place] [address]DrIndu Arechiga BAND # 0.1 103/ul Normal 0.0-0.3 The [facility] Comment on above: Performed By: #### C BCMAN ####[facility] [address] [place] [address]DrIndu Arechiga BAND % 1 % Normal 0-5 The [facility] Comment on above: Performed By: #### C BCMAN ####[facility] [address] [place] [address]DrIndu Arechiga BASOM # 0.00 103/ul Normal 0.00-0.10 The [facility] Comment on above: Performed By: #### C BCMAN ####[facility] [address] [place] [id number]. Sruthi Arechiga BASOM % 0.0 % Critically low 0.2-2.0 The [facility] Comment on above: Performed By: #### C BCJOSE ANGEL ####[facility] [address] [place] [id number]. Sruthi Arechiga BLAST # Normal The [facility] Comment on above: Performed By: #### C BCJOSE ANGEL ####[facility] [address] [place] [address]Dr. Sruthi Arechiga BLAST % Normal The [facility] Comment on above: Performed By: #### C PITA ####[facility] [address] [place] [address]Dr. Sruthi Arechiga CORRECTED WBC Normal 4.0-11.0 [facility] Comment on above: Performed By: #### C PITA ####[facility] [address] [place] [address]Dr. Sruthi Arechiga EOS # 0.13 103/ul Normal 0.00-0.70 [facility] Comment on above: Performed By: #### C PITA ####[facility] [address] [place] [address]Dr. Sruthi Arechiga EOS% 1.0 % Normal 0.9-7.0 [facility] Comment on above: Performed By: #### C PITA ####[facility] [address] [place] [address]Dr. Sruthi Arechiga HCT 38.8 % Normal 36.0-48.0 The [facility] Comment on above: Performed By: #### C PITA ####[facility] [address] [place] [id number]. Sruthi Arechiga HGB 12.5 g/dl Normal 12.0-16.0 The [facility] Comment on above: Performed By: #### C PITA ####[facility] [address] [place], [place] [address]Dr. Sruthi Arechiga LYMPHM # 1.51 103/ul Normal 1.20-3.80 The [facility] Comment on above: Performed By: #### C PIAT ####[facility] [address] [place], [place] [address]Wh. Sruthi Arechiga LYMPHM% 12.0 % Critically low 20.5-60.0 The [facility] Comment on above: Performed By: #### C PITA ####[facility] [address] [place], [place] [address]Up. Sruthi Arechiga MCH 27.2 pg Normal 26.7-34.0 The [facility] Comment on above: Performed By: #### C PITA ####[facility] [address] [place] [id number]. Sruthi Arechiga MCHC 32.2 g/dl Normal 29.9-35.2 The [facility] Comment on above: Performed By: #### C PITA ####[facility] [address] [place] [id number]. Sruthi Arechiga MCV 84.3 fL Normal 81.0-99.0 The [facility] Comment on above: Performed By: #### C PITA ####[facility] [address] [place] [id number]. Sruthi Arechiga METAMYELOCYTE # Normal The [facility] Comment on above: Performed By: #### C PITA ####[facility] [address] [place] [address]Dr. Sruthi Arechiga METAMYELOCYTE % Normal The [facility] Comment on above: Performed By: #### C PITA ####[facility] [address] [place] [address]Dr. Sruthi Arechiga MONOM# 1.64 103/ul Critically high 0.30-0.80 [facility] Comment on above: Performed By: #### C PITA ####[facility] [address] [place] [id number]. Sruthi Arechiga MONOM% 13.0 % Critically high 1.7-12.0 The [facility] Comment on above: Performed By: #### C PITA ####[facility] [address] [place] [id number]. Sruthi Arechiga MPV 11.7 fL Normal 9.5-13.5 The [facility] Comment on above: Performed By: #### C PITA ####[facility] [address] [place] [id number]. Sruthi Arechiga MYELOCYTE # Normal The [facility] Comment on above: Performed By: #### C PITA ####[facility] [address]tc[address] [place] [id number]. Sruthi Arechiga MYELOCYTE % Normal The [facility] Comment on above: Performed By: #### C PITA ####[facility] [address] [place] [id number]. Sruhti Arechiga NRBC Normal The [facility] Comment on above: Performed By: #### C PITA ####[facility] [address] [place] [id number]. Sruthi Arechiga PLT 237 103/ul Normal 150-450 The [facility] Comment on above: Performed By: #### C PITA ####[facility] [address] [place] [id number]. Sruthi Arechiga RBC 4.60 106/ul Normal 4.20-5.40 The [facility] Comment on above: Performed By: #### Uvaldo LEMA ####[facility] [address] [place] [id number]. Sruthi Arechiga RDW 13.2 % Normal 11.0-15.0 The [facility] Comment on above: Performed By: #### C PITA ####[facility] [address] [place] [id number]. Sruthi Arechiga SEG # 9.20 103/ul Critically high 1.40-6.50 [facility] Comment on above: Performed By: #### Uvaldo LEMA ####[facility] [address]qs[address] [place] [id number]. Sruthi Arechiga SEG % 73.0 % Normal 43.0-75.0 The [facility] Comment on above: Performed By: #### Uvaldo LEMA ####[facility] [address]frlxsys[address] [place] [id number] Arechiga WBC 12.6 103/ul Critically high 4.0-11.0 [facility] Comment on above: Performed By: #### C BCDIAGONAL ####[facility] [address] [place], [place] [address]OjIndu Arechiga [facility]-10 SARS-CoV-2 (COVID-19) RNA KOLE+probe Ql (Unsp spec) Not detected Normal NOT DETECTED [facility] Comment on above: Result Comment: [...] for this test is supported by the [place] of Health and Human Service's declaration that [...] be used). Performed By: #### C VDTB ####[facility] [address] [place], [place] [address]JrDr. Sruthi Arechiga LIPASEon 2022 Lipase [Catalytic activity/Vol] 75.0 U/L Normal 73.0-393.0 [facility] Comment on above: Performed By: #### C BC #### [facility] [address] [place] [address] [address] Sruthi Arechiga POINT OF CARE GLUCOSEon 06-10 Glucose [Mass/Vol] 351 mg/dL Critically high 74-106 T [facility] Comment on above: Performed By: #### C VDTB #### [facility] [address] [place] [address] [address] Sruthi Arechiga PROF 14(COMP METB)on 022 Albumin [Mass/Vol] 2.5 g/dL Critically low 3.4-5.0 [facility] Comment on above: Performed By: #### C MP #### [facility] [address] [place] [address] Dr. Sruthi Arechiga Albumin/Globulin [Mass ratio] 0.6 {ratio} Normal [facility] Comment on above: Performed By: #### C MP #### [facility] [address] [place] [address] Dr. Sruthi Arechiga ALP [Catalytic activity/Vol] 132 U/L Critically high 46-116 [facility] Comment on above: Performed By: #### C MP #### [facility] [address] [place] [address] Dr. Sruthi Arechiga ALT [Catalytic activity/Vol] 32 U/L Normal 14-59 [facility] Comment on above: Performed By: #### C MP #### [facility] [address] [place] [address] Dr. Sruthi Arechiga Anion gap [Moles/Vol] 19.2 mmol/L Normal [facility] Comment on above: Performed By: #### C MP #### [facility] [address] [place] [address] Dr. Sruthi Arechiga AST [Catalytic activity/Vol] 24 U/L Normal 15-37 [facility] Comment on above: Performed By: #### C MP #### [facility] [address] [place] [address] Dr. Sruthi Arechiga Bilirubin [Mass/Vol] 0.5 mg/dL Normal 0.2-1.0 [facility] Comment on above: Performed By: #### C MP #### [facility] [address] [place] [address] Dr. Sruthi Arechiga Calcium [Mass/Vol] 9.5 mg/dL Normal 8.5-10.1 [facility] Comment on above: Performed By: #### C MP #### [facility] [address] [place] [address] Dr. Sruthi Arechiga Chloride [Moles/Vol] 95 mmol/L Critically low 98-107 [facility] Comment on above: Performed By: #### C MP #### [facility] [address] [place] [address] [address] Sruthi Arechiga CO2 [Moles/Vol] 20.3 mmol/L Critically low 21.0-32.0 [facility] Comment on above: Performed By: #### C MP #### [facility] [address] [place] [address] [address] Sruthi Arechiga Creatinine [Mass/Vol] 0.78 mg/dL Normal 0.55-1.02 [facility] Comment on above: Performed By: #### C MP #### [facility] [address] [place] [address] Dr. Sruthi Arechiga EGFR-AF GEORGIAN >60 Normal >=60 [facility] Comment on above: Performed By: #### C MP #### [facility] [address] [place] [address] Dr. Sruthi Arechiga EGFR-NON AF GEORGIAN >60 Normal >=60 [facility] Comment on above: Performed By: #### C MP #### [facility] [address] [place] [address] [address] Sruthi Arechiga Globulin (S) [Mass/Vol] 4.3 g/dL Normal [facility] Comment on above: Performed By: #### C MP #### [facility] [address] [place] [address] Dr. Sruthi Arechiga Glucose [Mass/Vol] 389 mg/dL Critically high 74-106 [facility] Comment on above: Performed By: #### C MP #### [facility] [address] [place] [address] [address] Sruthi Arechiga Potassium [Moles/Vol] 3.5 mmol/L Normal 3.5-5.1 [facility] Comment on above: Performed By: #### C MP #### [facility] [address] [place] [address] [address] Sruthi Arechiga Protein [Mass/Vol] 6.8 g/dL Normal 6.4-8.2 [facility] Comment on above: Performed By: #### C MP #### [facility] [address] [place] [address] [address] Sruthi Arechiga Sodium [Moles/Vol] 131 mmol/L Critically low 136-145 Th [facility] Comment on above: Performed By: #### C MP #### [facility] [address] [place] [address] [address] Sruthi Arechiga Urea nitrogen [Mass/Vol] 24.0 mg/dL Critically high 7.0-18.0 [facility] Comment on above: Performed By: #### C MP #### [facility] [address] [place] [address] [address] Sruthi Arechiga Urea nitrogen/Creatinine [Mass ratio] 30.8 mg/mg Normal [facility] Comment on above: Performed By: #### C MP #### [facility] [address] [place] [address] [address] Sruthi Arechiga PROTHROMBIN TIMEon 2 INR Coag (PPP) [Relative time] 1.01 {INR} Normal 0.91-1.16 [facility] Comment on above: Result Comment: ACCC [...] 1995;[id number]. Performed By: #### 3 5200 #### [facility] [address] [place] [address], [facility] PT Coag (PPP) [Time] 13.3 s Normal 12.3-14.8 [facility] Comment on above: Result Comment: ALL RESULTS MUST BE INTERPRETED WITH RESPECT TO BLOOD DRAWING ARTIFACT OR DILUTION ERROR OF ANTICOAGULANT AT THE TIME OF SAMPLING. Performed By: #### 3 [id number] #### [facility] [address] [place] [address], [facility] PROTIMEon 2022 INR Coag (PPP) [Relative time] 0.98 {INR} Normal [facility] Comment on above: Performed By: #### C VDTBH #### [facility] [address] [place] [address] Dr. Sruthi Arechiga INR GUIDELINES SEE BELOW Normal [facility] Comment on above: Result Comment: JESSICA RED INR: 2.0 - 3.0 CONDITIONS NOT LISTED BELOW 2.5 - 3.5 FOR PROSTHETIC HEART VALVE REPLACEMENT 2.5 - 3.5 RECURRENT THROMBOSIS Performed By: #### C VDTBH #### [facility] [address] [address] [address] Sruthi Arechiga PT Coag (PPP) [Time] 10.6 s Normal 9.0-11.6 [facility] Comment on above: Performed By: #### C VDTBH #### [facility] [address] [address] [address] Sruthi Arechiga PTTon 2022 aPTT Coag (Bld) [Time] 32.5 s Normal 22.3-36.2 [facility] Comment on above: Performed By: #### C VDTBH #### [facility] [address] [place] [address] Dr. Sruthi Arechiga TROPONIN, HIGH SENSITIVITYon 2022 HSTROP 4940.1 pg/mL Critically high 4.0-51.3 [facility] Comment on above: Result Comment: CUT- OFF POINTS HAVE BEEN ESTABLISHED BASED ON THE FOURTH UNIVERSAL DEFINITIONS OF MYOCARDIAL INFARCTION. THE UPPER REFERENCE LIMIT (URL) OF TROPONIN, DEFINED THE 99TH PERCENTILE OF cTnI DISTRIBUTION IN A REFERENCE POPULATION, HAS BEEN CONFIRMED THE DECISION THRESHOLD FOR MA DIAGNOSIS. Performed By: #### H STROPN #### [facility] [address] [place], [place] [address] Dr. Sruthi Arechiga HSTROP 1816.7 pg/mL Critically high 4.0-51.3 [facility] Comment on above: Result Comment: CUT- OFF POINTS HAVE BEEN ESTABLISHED BASED ON THE FOURTH UNIVERSAL DEFINITIONS OF MYOCARDIAL INFARCTION. THE UPPER REFERENCE LIMIT (URL) OF TROPONIN, DEFINED THE 99TH PERCENTILE OF cTnI DISTRIBUTION IN A REFERENCE POPULATION, HAS BEEN CONFIRMED THE DECISION THRESHOLD FOR MA DIAGNOSIS. Performed By: #### C BC #### [facility] [address] [place], [place] [address] Dr. Sruthi Arechiga TSHon 2022 TSH 3.865 uIU/mL Critically high 0.358-3.740 [facility] Comment on above: Performed By: #### T SH, LIPA, BNP, CMADM ####[facility] [address] [place], [place] [address]WmDr. Sruthi Arechiga UFH HEPARIN ASSAYon 06-28-20 22 UNFRACTIONATED HEPARIN <0.10 Critically low 0.30-0.70 [facility] Comment on above: Order [...] LMWH. Performed By: #### 3 5200 #### [facility] [address] [place] [address], [facility] XR CHEST 1 Von 2022 XR [...] by: GERMAIN COY Date: 2022 06:58 Normal [facility] Vital Signs Date Time Vital Sign Value Performing Clinician Facility 12-11-2023 16:15-0500 Body height 157.5 cm Alexis Gilmore DPM Work Phone: [facility] 12-11-2023 16:15-0500 Body mass index (BMI) [Ratio] 29.26 kg/m2 Alexis Gilmore DPM Work Phone: [facility] 12-11-2023 16:15-0500 Body weight 72.58 kg Alexis Gilmore DPM Work Phone: [facility] 12-11-2023 16:15-0500 Diastolic blood pressure 80 mm[Hg] Alexis Gilmore DPM Work Phone: [facility] 12-11-2023 16:15-0500 Heart rate 77 /min Alexis Gilmore DPM Work Phone: [facility] 12-11-2023 16:15-0500 Systolic blood pressure 130 mm[Hg] Alexis Gilmore DPM Work Phone: [facility] 02-19-2023 10:30-0400 Body height 157.48 cm Sabrina Solanokervin Other [facility] Other 02-19-2023 10:30-0400 Body mass index (BMI) [Ratio] 28.35 kg/m2 Sabrina Solanokervin Other [facility] Other 02-19-2023 10:30-0400 Body temperature 97.8 [degF] Sabrina Suha Other [facility] Other 02-19-2023 10:30-0400 Body weight 70.31 kg Sabrina Borden Other [facility] Other 02-19-2023 10:30-0400 Diastolic blood pressure 64 mm[Hg] Sabrina Borden Other [facility] Other 02-19-2023 10:30-0400 SaO2% (BldA) [Mass fraction] 95 % Sabrina Borden Other [facility] [employer] Other 02-19-2023 10:30-0400 Systolic blood pressure 112 mm[Hg] Sabrina Borden Other [facility] [employer] [facility] Other 01-13-2023 16:30-0500 Diastolic blood pressure 57 mm[Hg] II Nik Bell Work Phone: [facility] 01-13-2023 16:30-0500 Heart rate 63 /min II Nik Bell Work Phone: [facility] 01-13-2023 16:30-0500 Respiratory rate 16 /min II Nik Bell Work Phone: [facility] 01-13-2023 16:30-0500 SaO2% (BldA) [Mass fraction] 95 % II Nik Bell Work Phone: [facility] 01-13-2023 16:30-0500 Systolic blood pressure 123 mm[Hg] II Nik Bell Work Phone: [facility] 01-13-2023 14:00-0500 Inhaled oxygen flow rate 2 L/min II Nik Bell Work Phone: [facility] 01-13-2023 11:42-0500 Body height 157.48 cm II Nik Bell Work Phone: [facility] 01-13-2023 11:42-0500 Body weight 68.49 kg II Nik Bell Work Phone: [facility] 01-09-2023 08:30-0500 Body height 157.48 cm Geo Mathew Other [facility] Other 01-09-2023 08:30-0500 Body mass index (BMI) [Ratio] 28.35 kg/m2 Geo Mathew Other [facility] Other 01-09-2023 08:30-0500 Body temperature 97.8 [degF] Geo Mathew Other [facility] Other 01-09-2023 08:30-0500 Body weight 70.31 kg Geo Mathew Other [facility] Other 01-09-2023 08:30-0500 Diastolic blood pressure 68 mm[Hg] Geo Mathew Other [facility] Other 01-09-2023 08:30-0500 SaO2% (BldA) [Mass fraction] 95 % Geo Mathew Other [facility] Other 01-09-2023 08:30-0500 Systolic blood pressure 112 mm[Hg] Geo Mathew Other [facility] Other 09-20-2021 13:00-0500 Body height 157.48 cm Geo Mathew Other [facility] Other 09-20-2021 13:00-0500 Body mass index (BMI) [Ratio] 31.09 kg/m2 Geo Mathew Other [facility] Other 09-20-2021 13:00-0500 Body weight 77.11 kg Geo Mathew Other [facility] Other 09-20-2021 13:00-0500 Diastolic blood pressure 69 mm[Hg] Geo Wisdomimelda Other [facility] Other 09-20-2021 13:00-0500 Systolic blood pressure 158 mm[Hg] Geo Wisdomimelda Other [facility] Other Encounters Encounter Date Encounter Type Care Provider Facility Start: 01-15-2024 End: 01-15-2024 ambulatory ALEXIS GILMORE Not Available Start: 01-05-2024 End: 01-05-2024 ambulatory ALEXIS GILMORE Not Available Start: 12-19-2023 ambulatory ANABELLE RICH [facility] Start: 12-15-2023 End: 12-15-2023 ambulatory NIK BELL Not Available Start: 12-11-2023 End: 12-11-2023 ambulatory ALEXIS GILMORE Not Available Start: 12-11-2023 End: 12-11-2023 Office outpatient visit 15 minutes Alexis Gilmore DPM Work Phone: [facility] Comment on above: Diabetes mellitus du e to underlying condition with diabetic polyneuropathy, unspecified whether fpc insulin use (CMS/[facility]) (Primary Dx); PVD (peripheral vascular disease) (CMS/HCC); Dry gangrene (CMS/HCC); Foot ulcer, left, with fat layer exposed ([facility]/HCC) Start: 12-05-2023 Evaluation and management of inpatient [facility] Start: 12-04-2023 Evaluation and management of inpatient [facility] Start: 12-04-2023 Evaluation and management of inpatient [facility] Start: 12-03-2023 Evaluation and management of inpatient [facility] Start: 12-03-2023 End: 12-05-2023 Evaluation and management of inpatient [facility] Start: 11-27-2023 End: 11-27-2023 ambulatory ALEXIS GILMORE Not Available Start: 02-19-2023 End: 02-19-2023 Patient encounter procedure Sabrina Borden [facility] Start: 02-19-2023 End: 02-19-2023 ambulatory MONSE Bell Work Phone: [facility] Other Start: 01-31-2023 End: 01-31-[address] NIK BELL Facility:[facility] Start: 01-13-2023 End: 01-13-2023 ambulatory Geo Mathew Facility:[facility] Start: 01-13-2023 End: 01-13-2023 Admission to same day surgery center II Nik Bell Work Phone: [facility] Work Phone: Start: 01-13-2023 End: 01-13-2023 ambulatory MONSE Bell Work Phone: [facility] Work Phone: Start: 01-09-2023 End: 01-09-2023 ambulatory Geo Mathew Other [facility] Other Start: 01-09-2023 Office outpatient ne w 60 minutes Geo Mathew [facility] Start: 12-30-2022 End: 12-31-2022 ambulatory ALEXIS GILMORE Facility:[facility] Start: 11-12-[address] DOCTOR CHAN Facility :[facility] Start: 08-17-2022 End: 08-18-[address] PANCHITO CHACON Facility:[facility] Start: 07-21-2022 End: 07-21-[address] NIK BELL Facility:[facility] Start: 07-04-2022 End: 07-07-[address] NIK BELL Facility:[facility] Start: 06-29-2022 End: 07-03-2022 Evaluation and management of inpatient CHASE TAJ Facility:[facility] Start: 2022 End: [address] NIK BELL Facility:[facility] Start: 02-15-[address] NIK BELL Facilit y:[facility] Start: 09-20-2021 End: 09-20-2021 ambulatory Geo Mathew Other [facility] Other Start: 09-20-2021 Office outpatient vi sit [...] 03-03-2024 Hemoglobin A1c measurement Diabetes: Hemoglobin A1C [facility] Start: 02-05-2024 End: 02-05-2024 Patient encounter procedure 02/05/2024 10:10 AM EDT Office Visit [facility] [address] [facility] [address] [place] [address] Alexis Gilmore, DPM [address] [facility] [address] [place] [address] [facility] Start: 12-15-2023 End: 12-15-2023 Patient encounter procedure 12/15/2023 2:30 PM EST Office Visit [facility] [address] [facility] [address] [place] [address] Nik Bell MD [address] [facility] [address] [place] [address] [facility] Start: 07-11-2023 Influenza vaccination Influenza Vaccine (#1) [facility] Start: 01-13-2023 [facility] Start: 01-09-2022 Glaucoma screening Diabetes: Retinopathy Screening [facility] Start: 10-06-2021 Pneumococcal Vaccine: 65+ Years (2 - PCV) Pneumococcal Vaccine: 65+ Years (2 - PCV) [facility] Start: 08-23-2021 Screening for malignant neoplasm of breast Mammogram [facility] Start: 01-17-2021 Urine screening for protein Diabetes: Urine Protein Screening [facility] Start: 1955 Medicare Annual Wellness (AWV) Medicare Annual Wellness (AWV) [facility] Patient Education Peripheral Art ansley Disease and Claudication Peripheral Vascular (Arterial) Disease (DC) [facility] Work Phone: Patient referral [facility] Work Phone: Immunizations Immunization Date Immunization Notes Care Provider Fa cili 08-28-2022 Influenza, High-dose Seasonal, Quadrivalent, Preservative Free Alexis Gilmore DPM Work Phone: [facility] 08-28-2022 influenza virus vacc ine, unspecified formulation Alexis Dillon DPM Work Phone: [facility] 09-05-2021 Influenza, Seasonal, Quadrivalent, Adjuvanted Alexis Dillon DPM Work Phone: [facility] 10-06-2020 influenza, injectabl e, quadrivalent, preservative free Alexis Brown DPM Work Phone: [facility] 10-06-2020 pneumococcal polysaccharide vaccine, 23 valent Alexis Brown DPM Work Phone: [facility] 10-05-2020 influenza, high dose seasonal, preservative-free Alexis Brown DPM Work Phone: [facility] 08-10-2019 influenza, high dose seasonal, preservative-free Alexis Brown DPM Work Phone: [facility] 08-25-2018 seasonal influenza, intradermal, preservative free Alexis Brown DPM Work Phone: [facility] 09-24-2017 seasonal influenza, intradermal, preservative free Alexis Brown DPM Work Phone: [facility] 09-25-2016 influenza, injectabl e, quadrivalent, preservative free Alexis Brown DPM Work Phone: [facility] 09-25-2016 pneumococcal polysaccharide vaccine, 23 valent Alexis Brown DPM Work Phone: [facility] 10-02-2015 seasonal influenza, intradermal, preservative free Alexis Gilmore DPM Work Phone: [facility] Healthcare 10-27-2014 influenza, injectabl e, quadrivalent, preservative free Alexis Gilmore DPM Work Phone: [facility] Healthcare Payers Date Payer Category Payer Unknown BCBS BCBS [id number] 2022-Present [phone] [address] [place] [address] [id number] 2015 Medicare MEDICARE MEDICAR E PART B [id number] 2015-Present [address] [address] [place] [address] Medicare [id number] 1959 Medicare [id number] 1959 Self-pay [id number] 1959 Unknown [id number]. [id number] 1959 Unknown [id number] 1954 Unknown [id number] [id number] 1954 Unknown [id number] 2.16.840.1.348741.3.579.2.593 1954 Unknown [id number] 2.16.840.1.864529.3.579.2.593 1954 Unknown [id number] 2.16.840.1.412641.3.579.2.593 1954 Unknown [id number] 2.16.840.1.773084.3.579.2.593 1954 Unknown [id number] 2.16.840.1.372729.3.579.2.593 1954 Unknown [id number] 2.16.840.1.226742.3.579.2.593 1954 Unknown [id number] 2.16.840.1.357020.3.579.2.593 1954 Unknown [id number] 2.16.840.1.999211.3.579.2.593 1954 Unknown [id number] 2.16.840.1.415186.3.579.2.1259 1954 Unknown [id number] 2.16.840.1.115084.3.579.2.1259 1954 Unknown [id number] 2.16.840.1.926491.3.579.2.1259 1954 Unknown [id number] 2.16.840.1.508340.3.579.2.1259 1954 Unknown [id number] 2.16.840.1.161397.3.579.2.1259 Unknown [id number] 2.16.840.1.102487.3.579.2.531 Unknown [id number] 2.16.840.1.860350.3.579.2.531 Social History Date Type Detail Facility Start: 12-11-2023 Sex Assigned At N [facility] Other Start: 01-13-2023 End: 06-12-2023 Tobacco smoking status [facility] Never smoked tobacco (finding) [facility] Start: 1955 Sex Assigned At Female F [facility] Start: 12-11-2023 Alcohol intake Lifetime non-d [...] She is continuing wound care with her medical office worker. Denies any significant pain or pulsatility to [...] for this visit: PAD (peripheral artery disease) ([facility]) -Patient with reperfusion edema to the right [...] past 36 hour(s)). No follow-ups on file. [facility] 12-11-2023 History of Present illness Narrative Patient: [...] left leg and patient was transferred to [facility] where she had it angioplasty procedure with increased blood flow noted by patient. She has a type 2 diabetic and presents today for follow up in office. Allergies: Allergies Allergen Reactions Penicillins Hives childhood-swelling Past Medical History: Past Medical History: Diagnosis Date A-fib ([facility]) 2022 with RVR Anxiety Aortic stenosis 06/2022 Carotid artery disease ([facility]) CHF (congestive heart failure) ([facility]) 06/2022 Colon polyp 2016 Diverticulitis DM (diabetes mellitus) ([facility]) HLD (hyperlipidemia) ([facility]) HTN (hypertension) ([facility]) MA (myocardial infarction) ([facility]) NSTEMI, initial episode of care ([facility]) 2022 Medications: Current Outpatient Medications: amLODIPine (Norvasc) [...] positive edema to left foot NEURO: 5.07 [place] monofilament test diminished to digits and forefoot bilaterally 125Hz tuning fork diminished to 1st MPJ bilaterally ORTHO: Minimal pain on palpation to left foot ulcer BRIDGER PVR non readable findings to the left with non pulsatile flow and right of 0.53 DP ASSESSMENT 1. Diabetes mellitus due to underlying condition with diabetic polyneuropathy, unspecified whether termite helper insulin use ([facility]) 2. PVD (peripheral vascular disease) ([facility]) 3. Dry gangrene ([facility]) 4. Foot ulcer, left, with fat layer exposed ([facility]) PLAN Sharp debridement with 15 blade of subcutaneous ulceration to left foot with active bleeding noted and removal and excision of fibrotic and necrotic tissue to wound and DSD applied with neosporin. Pt to continue with Betadine daily Reviewed BRIDGER PVRs and patient is to follow up with [facility] for right foot in near future and continue with wound care until follow up in 1 week Alexis Gilmore DPM documented in this encounter [facility] 12-05-2023 Note Hospital Medicine Discharge Summary Final Discharge Diagnosis: # critical limb ischemia , right lower extremity # lower extremity claudication, bilateral # nonoliguric EVA # Atrial fibrillation on Eliquis # coronary artery disease status post CABG # uncontrolled diabetes mellitus type 2 # Hyponatremia Admission Diagnosis: Hyponatremia [E87.1] PAD (peripheral artery disease) ([facility]) [I73.9] Numbness of left lower extremity [R20.0] [...] December 05, 2023. Dear Dr. Ray MD, [place] is advised to follow up with you within 1-2 weeks. Follow-up with: Vascular Surgery Scheduled appointments: Future Appointments Date Time Provider Department Center 12/19/2023 11:00 AM [facility] Daily [facility] [place] [facility] Your medication list START taking these [...] Your Medications These medications were sent to [id number] - [address] AT [address] [address] clopidogrel 75 mg tablet oxyCODONE-acetaminophen 5-325 mg [...] and care-team, med- (more content not included)... [facility] 12-05-2023 Note [facility] Vascular Surgery DAILY PROGRESS NOTE Subjective No [...] be discharged once the ultrasound is done. [facility] 12-05-2023 Note Clinical Nutrition A ssessment: Name: Marimar Patel Room: [address] [place] [address] Date: 1955 Date of Visit: 12/05/23 Admission Dx: Hyponatremia [E87.1] PAD (peripheral artery disease) ([facility]) [I73.9] Numbness of left lower extremity [R20.0] Reason for assessment: high risk Information obtained from: patient, medical record, and nursing Past Medical History: Diagnosis Date A-fib ([facility]) Aortic valve stenosis Coronary artery disease Diabetes mellitus ([facility]) Hypertension Peripheral vascular disease ([facility]) Current Medications: aspirin, 81 mg, oral, Daily [...] 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 Pt lives [...] ideal body weight (50 kg) Calorie needs: 0219-0747 kcals/day based on Equation: 25-30 kcal/kg Protein [...] Academy of Nutrition and Dietetics, and the [place] [employer] of Enteral and Parenteral Nutrition to suppo (more content not included)... [facility] 12-05-2023 Note Occupational Therapy Occupational Therapy Evaluation [...] aortic valve stenosis Coronary artery disease involving chemehuevi coronary artery of chemehuevi heart with angina pectoris ([facility]) PAF (paroxysmal atrial fibrillation) ([facility]) Essential hypertension PAD (peripheral artery disease) ([facility]) Numbness of left lower extremity Past Medical History: Diagnosis Date A-fib ([facility]) Aortic valve stenosis Coronary artery disease Diabetes mellitus ([facility]/HCC) Hypertension Peripheral vascular disease ([facility]) Past Surgical History: Procedure Laterality Date APPENDECTOMY CARDIAC SURGERY CHOLECYSTECTOMY COLON SURGERY CTA ABDOMEN PELVIS W AND/OR WO IV CONTRAST 07/12/2022 CT ABDOMEN PELVIS ANGIOGRAM W AND/OR WO IV CONTRAST RADNLE CONVERSION CTA CHEST W AND/OR WO IV [...] Level of Function Prior Function Level of Ashley: Independent with ADLs and functional transfers Prior [...] Sensation Light T (more content not included)... [facility] 12-04-2023 Note Patient: Marimar mccain Procedure Summary Date: 12/04/23 Room / Location: [address] / [facility] Operating Room Anesthesia Start: 1350 Anesthesia Stop: 1625 Procedures: LEFT LOWER EXTREMITY ANGIOGRAM (Left) AORTOGRAM LEFT LOWER EXTREMITY JETSTREAM AND ATHERECTOMY/THROMBECOMY LEFT LOWER EXTREMITY DRUG COATED BALLOON ANGIOPLASTY OF SFA AND POLITEAL ARTERIES LEFT LOWER EXTREMITY DISTAL SFA AND POPLITEAL COVERED STENTING Diagnosis: PAD (peripheral artery disease) (CMS/HCC) (PAD (peripheral artery disease) (CMS/[facility]) [I73.9]) Surgeons: Jennifer Vaca MD Responsible Provider: [...] per anesthesia protocol. No notable events documented. [facility] 12-04-2023 Note Patient: Marimar mccain Procedure Summary Date: 12/04/23 Room / Location: [facility] OR [address] [place] [address] Operating Room Anesthesia Start: 1350 Anesthesia Stop: Procedures: LEFT LOWER EXTREMITY ANGIOGRAM (Left) AORTOGRAM LEFT LOWER EXTREMITY JETSTREAM AND ATHERECTOMY/THROMBECOMY LEFT LOWER EXTREMITY DRUG COATED BALLOON ANGIOPLASTY OF SFA AND POLITEAL ARTERIES LEFT LOWER EXTREMITY DISTAL SFA AND POPLITEAL COVERED STENTING Diagnosis: PAD (peripheral artery disease) (CMS/HCC) (PAD (peripheral artery disease) ([facility]) [I73.9]) Surgeons: Jennifer Vaca MD Responsible Provider: Charlene Jimenez MD Anesthesia Type: general ASA Status: 3 Anesthesia Post Transport Note Transport to: PACU O2 Route: face mask Oxygen Flow (L/min): 8 Patient Monitor: direct observation Transport: uneventful Patient condition is: stable [facility] 12-04-2023 Note Patient: Marimar mccain Procedure Information Anesthesia Start Date/Time: 12/04/23 1350 Procedure: Lower extremity angiogram (Left) - LLE angiogram possible intervention Location: [facility] OR [address] / [facility] Operating Room Surgeons: Jennifer Vaca MD Relevant Problems Cardio (+) Coronary artery disease involving chemehuevi coronary artery of chemehuevi heart with angina pectoris ([facility]) (+) Essential hypertension (+) Nonrheumatic aortic valve stenosis (+) PAD (peripheral artery disease) ([facility]) (+) PAF (paroxysmal atrial fibrillation) ([facility]) Clinical information reviewed: Tobacco Allergies Meds Problems [...] Plan discussed with attending. Additional Equipment Requests [facility] 12-04-2023 Note Airway Date/Time: 12/04/2023 1:58 PM Urgency: elective Airway not difficult General Information and Staff Patient location during procedure: OR Anesthesiologist: Charlene Jimenez MD Resident/COMMUNICATIONS CONSULTANT/CAA: Deep Bolton CRNA Performed: resident/COMMUNICATIONS CONSULTANT/CAA Indications and Patient Condition Indications for airway [...] Additional Comments 4ml 4% lidocaine lta utilized [facility] 12-04-2023 Note Hospital Medicine Daily Progress Note - 12/04/2023 12:06 PM; Room: [address] [place] [address] Admission: 12/03/2023 4:20 PM; Length of stay: 1 days THE HOSPITALIST TEAM PREFERS TO USE [employer] FOR COMMUNICATION 7AM-7PM. IF I DO NOT RESPOND WITHIN 15 MINUTES, PLEASE PAGE ME/CALL THROUGH THE CAR SUPPLIER. FROM 7PM-7AM, PLEASE PAGE [phone](COVR) Code Status: Full Code Barriers to Discharge: [...] extremity Active Problems: PAD (peripheral artery disease) ([facility]) Assessment and Plan 1. Right lower extremity [...] LDL 195 2022 No results found for: [id number] , IRON , TIBC , C3 , [...] Does the pa (more content not included)... [facility] 12-03-2023 Note Pharmacy completed a medication reconciliation for Marimar Patel. Patient is a 68 y.o. year old female, 1.575 m (5' 2 ) cm, 72.6 kg (160 lb) kg, CrCl= Estimated Creatinine Clearance: 29.5 mL/min (A) (by C-G formula based on SCr of 1.68 mg/dL (H)). mL/minute. Patient has allergies to: Penicillin and Penicillins . Pt fills at [facility] [phone]. Medication list was obtained from patient's fill history list and patient (pt stated that her knows the medication better but he is not in the room). Home medication list has been updated. Please call pharmacy with any questions. Thank you! Confirmed that patient was doing basaglar 80 units at night (Rx said 86 units) Thanks, [facility] Fiona Nash, PharmD, 12/03/23 [facility] 12-03-2023 Note 12/03/232003 Financial Resource Strain How [...] place to sleep or slept in a assisted (including now)? N Transportation Needs In the [...] than 3 How often do you attend gnosticism or buddhist services? Never Do you belong to any clubs or organizations such as gnosticism groups, unions, fraternal or athletic groups, or [...] home? 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 Reason Psychosocial assessment Patient Information Primary Caregiver Self Accompanied by/Relationship Activities of Daily Living Assistive Device Cane;Walker (Uses sometimes) Living Arrangement (Current/Prior to Hospitalization) Private residence (Lives at home with and son) Ambulation Minimum assistance (Uses walker or cane sometimes) Dressing Independent Feeding Independent Behavior Oriented Communication Can write;Talks;Understands speaking;Understands Vietnamese;Reads Income Information Income Source Unemployed Discharge Planning [...] system as her friends, her , her [id number], and her son. Patient endorsed that she [...] past year and denied any alcohol consumption. [facility] 02-19-2023 Evaluation note Encounter Date Diagnosis Assessment [...] office sooner with any issues or concerns. [facility] 03-24-2023 NotePROCEDURE: XR WRIST LT MIN 3 V HISTORY: Pain after falling COMPARISON: None. FINDINGS: BONES:No fracture, acute abnormality, or significant arthropathy. SOFT TISSUES:Multiple skin jose within soft tissues lateral to the distal forearm. EFFUSION:None visible. OTHER: Negative. IMPRESSION: 1. No acute bone abnormality. 2. Multifocal mild degenerative joint disease. Electronically authenticated by: GERMAIN COY Date: 2023-01-31 13:10[id number]* Encounter Date Diagnosis Assessment [...] clinical exam. I do not have the [place] studies yet. We will reach out to [...] was obtained all her questions were addressed. [facility] 08-25-2022 NoteMR#: [id number] [facility] Pt. Name: Marimar Patel Admitted: 2022 Discharged: [...] Amaya MD Date Trans: 07/03/2022 11:43 P/abdiaziz [id number] cc: Nik Bell M.D. [address] [place] [id number] Encounter Date Diagnosis Assessment [...] plan all of her questions were addressed. [facility] Other Evaluation noteNo assessment information available [facility] Work Phone: Evaluation note* Diagnosis Diabetes mellitus due to underlying condition with diabetic polyneuropathy, unspecified whether fpc insulin use (CMS/HCC)- Primary PVD (peripheral vascular disease) (CMS/HCC) Unspecified peripheral vascular disease Dry gangrene (CMS/HCC) Foot ulcer, left, with fat layer exposed ([facility]/HCC) documented in this encounter [facility] N[facility]ative - Reported* Type Description Date Medical History carotid stenosis Medical History diverticulitis Medical History MA Medical History DM Medical History hyperlipidemia Medical History HTN Surgical History cholecystectomy Surgical History tonsillectomy Surgical History CABGx2 Surgical History hernia repair Surgical History appendectomy Surgical History quad bypass 2012 Hospitalization History see surgical hx [facility] Other History general Narrative - Reported* Type Description Date Medical History carotid stenosis Medical History diverticulitis Medical History MA Medical History DM Medical History hyperlipidemia Medical History HTN Surgical History cholecystectomy Surgical History tonsillectomy Surgical History CABGx2 Surgical History hernia repair Surgical History appendectomy Surgical History quad bypass 2012 Surgical History Cardiac Stent 2022 Hospitalization History see surgical hx [facility] Other Summary Purpose Family History No Family [...] and content) DATE CREATED AUTHOR 07/13/2022 [facility] DATE CREATED AUTHOR AUTHOR'S ORGANIZ ATION 02/04/2023 [facility] DATE CREATED AUTHOR AUTHOR'S ORGANIZ ATION 03/01/2023 [facility] DATE CREATED AUTHOR AUTHOR'S ORGANIZ ATION 01/08/2024 [facility] DATE CREATED AUTHOR AUTHOR'S ORGANIZ ATION 01/16/2024 [facility] Care Teams (unrecognized sec tion and content) Team Status: Active Member Role Status Dates Nik Bell II MD Primary Care Provider Active Team Status: Inactive Member Role Status Dates Nik Bell II MD Primary Care Provider Active Geo Mathew MD Attending Provider Active 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 [employer] provides no warranty or guarantee of the accuracy or completeness of information in this document.
--- NOTE | 2024-02-09 09:52 | CM.NOTE ---
Medicare Outpatient Observation Notice discussed with pt, pt verbalizes understanding and signs paper. Original given to pt and copy placed in pt's chart.
[2024-02-09] MEDS: CITALOPRAM HYDROBROMIDE 20 MG TABLET PO (10:08)
[2024-02-09] MEDS: ENSURE HP 237 ML LIQUID PO (10:08)
--- NOTE | 2024-02-09 10:57 | SWNOTE1 ---
SW met with pt to discuss dc needs. Pt lives at home with her son and . [place] live [place]. She voices she is active and wants it to get warmer out. SW advised it is recommended she gets a walker and possible need for home health. Pt voices she would rather get walker from [employer], her friend works there. She does not want to go through her insurance. SW and pt spoke about home health. Pt voices she is active at home and is feeling better and she does not feel she needs it. SW did advise it is recommended for her safety at this time. Pt again declines need for home health and refuses at this time. SW let her know to contact her PCP if she does want it after leaving hospital. SW did let her know if her friend can't get a walker to reach out to PCP as well. Pt voiced understanding. SW to follow as needed.
[2024-02-09 11:53] LABS: Glucometer 325 mg/dL (74-106)
[2024-02-09 12:35] LABS: Basophils Percent Auto 0.2 % (0.2-2.0); Eosinophils Absolute Auto 0.1 10^3/uL (0.0-0.7); Eosinophils Percent Auto 0.8 % (0.9-7.0); Hemoglobin 8.3 g/dL (12.0-16.0); Immature Granulocytes Abs Auto 0.46 10^3/uL (0.00-0.03); Immature Granulocytes Pct Auto 3.8 % (0.0-0.5); Lymphocytes Absolute Auto 2.1 10^3/uL (1.2-3.8); Lymphocytes Percent Auto 17.2 % (20.5-60.0); Mean Corpuscular HGB Conc 31.9 g/dL (29.9-35.2); Mean Corpuscular Hemoglobin 28.2 pg (26.7-34.0); Mean Corpuscular Volume 88.4 fL (81.0-99.0); Mean Platelet Volume 11.2 fL (9.5-13.5); Monocytes Absolute Auto 1.3 10^3/uL (0.3-0.8); Monocytes Percent Auto 10.5 % (1.7-12.0); Neutrophils Absolute Auto 8.2 10^3/uL (1.4-6.5); Neutrophils Percent Auto 67.5 % (43.0-75.0); Platelet Count 280 10^3/uL (150-450); Red Blood Count 2.94 10^6/uL (4.20-5.40); Red Cell Distribution Width 14.2 % (11.0-15.0); White Blood Count 12.2 10^3/uL (4.0-11.0)
--- NOTE | 2024-02-10 15:44 | CM.DCFOLLOWU ---
1st attempt. No answer 02/09
--- NOTE | 2024-02-12 14:26 | CM.DCFOLLOWU ---
02/11- 2nd attempt. No answer
== END 2024-02-09 13:44 | disposition home or self-care (01) ==
LOC: ER 15:02 → MS 02-09 09:28
PROVIDERS: Admitting Provider Family Medicine; Emergency Provider Emergency Medicine; PCP Internal Medicine; Visit Provider Family Medicine
DX: N17.9 Acute kidney failure, unspecified (principal); N39.0 Urinary tract infection, site not specified; D72.829 Elevated white blood cell count, unspecified; R00.1 Bradycardia, unspecified; I95.9 Hypotension, unspecified; E11.649 Type 2 diabetes mellitus with hypoglycemia without coma; F32.A Depression, unspecified; I25.10 Atherosclerotic heart disease of native coronary artery without angina pectoris; E83.42 Hypomagnesemia; R79.89 Other specified abnormal findings of blood chemistry; E44.0 Moderate protein-calorie malnutrition; Z68.30 Body mass index [BMI] 30.0-30.9, adult; Z79.01 Long term (current) use of anticoagulants; Z79.899 Other long term (current) drug therapy; Z79.4 Long term (current) use of insulin; B96.20 Unspecified Escherichia coli [E. coli] as the cause of diseases classified elsewhere
CPT/HCPCS: 36415; 80053; 81001; 82150; 82948; 83605; 83690; 83735; 83880; 84484; 85007; 85025; 85027; 87040; 87086; 87150; 87186; 93005; 94761; 96361; 96365; 96366; 96367; 96375; 97161; 99285; G0328; G0378

== ENCOUNTER 2024-03-11 07:52 | Outpatient (OUT) | payer MEDICARE, BC, SELFPAY ==
--- OUTSIDE RECORDS SUMMARY | 2024-03-11 07:56 | XMS_ITS | CCD ---
Author Organization [facility] Care Team Providers Care Wood Router Name Role Phone Geo Mathew Unavailable CHASE AMAYA Attending Unavailable UNKNOWN, PHYSICIAN Referring Unavailable NIK BELL Primary Care Unavailable ANDREW LOONEY Admitting Unavailable MONSE Bell Primary Care Provider MD Geo Mathew Attending Provider [phone] DR NIK BELL Primary Care Unavailable SHEPARD [...] Unavailable PAY ., DR DÍAZ Consulting Unavailable KLCHANTAL AUSTIN Consulting Unavailable RAY, DR OAKES Primary Care [...] Argueta Primary Care Unavailable Geo Mathew Admitting Unavailjuju Mathew, Geo Yarbrough Attending UnavailNik Argueta Primary Care Unavailable Nik Bell MD Primary Care Provider [phone] NAJENNIFER MUSTAFA Referring Unavailable AURE, ANDREW Admitting Unavailable JC FLETCHER Attending Unavailable ANABELLE RICH Attending Unavailable JC FLETCHER Referring Unavailable JC FLETCHER Referring Unavailable JENNIFER VACA Referring Unavailable ALEXIS GILMORE Attending Unavailable ALEXIS GILMORE Attending Unavailable NIK BELL Attending Unavailable ALEXIS GILMORE Attending Unavailable ALEXIS GILMORE Attending Unavailable KELTON CEDEÑO Attending Unavailable ALEXIS GILMORE Attending Unavailable Allergies Allergy Classification Reported Allergen(s) Allergy Type Date of Onset Reaction(s) Facility (1 source) Penicillin V Drug Allergy [facility] Other (5 sources) Penicillins; Translations: [PENICILLINS] Drug allergy (disorder) 09-20-2009 [facility] Repository (3 sources) Penicillin; Translations: [PENICILLIN] Drug Allergy 07-19-2022 [facility] Repository (1 source) Penicillins Drug allergy (disorder) 01-10-2023 [facility] Repository (2 sources) Penicillins Drug Allergy 10-28-2014 [facility] Medications Current Medications Medication Drug Class(es) [...] 2 diabetes mellitus with hyperglycemia, unspecified whether long wall mining machine tender insulin use (CMS/HCC) INJECT 86 UNITS UNDER [...] 1 tablet Orally Once a day Not-Taking K-Zlfzshloyrpw-T4-B1 2 3-35-2 MG (3 sources) take 1 tablet by mouth twice daily Z-Befxhqlwxslj-N2-B1 2 3-35-2 MG 1 tablet Orally Twice [...] disease (3 sources) Atherosclerotic heart disease of [place] coronary artery without angina pectoris; Translations: [Coronary atherosclerosis] Onset: 3 06-04-2023 Chronic Coronary atherosclerosis and other heart disease (2 sources) Coronary atherosclerosis and other heart disease; Translations: [Atherosclerosis of [place] arteries of extremities with intermittent claudication, left [...] Onset: 2 Chronic Other aftercare (1 source) detention (current) use of anticoagulants; Translations: [MAT PACKER CURRNT USE ANTICOAGULANTS] Onset: 3 Episodic Other aftercare (1 source) Other long wall mining machine tender (current) drug therapy; Translations: [OTH RESIDENTIAL CURRENT DRUG THERAPY] Onset: 3 Episodic Other aftercare (1 source) terminologist (current) use of antithrombotics/antipl atelets; Translations: [MAT PACKER ANTITHROMBOT/ANTIPLATL ETS] Onset: 3 Episodic Other aftercare (1 source) detention (current) use of insulin; Translations: [RESIDENTIAL CURRENT USE OF INSULIN] Onset: 3 Episodic Other aftercare (1 source) terminologist (current) use of aspirin; Translations: [MAT PACKER CURRENT USE OF ASPIRIN] Onset: 3 Episodic [...] Range Facility 36on 01-01-2024 36 Needs appt Normal [facility] Follow-Upon 12-19-2023 Follow-Up [id number] Pancho Patel 1955 F Date Provider Department Center 12/19/2023 ANABELLE CLAUDIO [facility] Family History Problem Relation Age of Onset Diabetes Mother Cancer Mother Heart disease Father Alcohol abuse Brother Diabetes Brother Family Status - Relation Status Age at Mother Father Brother Level of Service:92195 [place] OFFICE/OUTPATIENT ESTABLISHED LOW MDM 20 MIN Reason for Visit and Comments: Hospital Follow-up [832] - 1/25/24 impatient PAD Normal [facility] 30on 12-05-2023 30 Daily Case Managemen t Update Multidisciplinary rounds have been completed. Barriers to Discharge: ER Admit s/p abnormal ankle-brachial index with c/o numbness/tingling. s/p Angiogram on 12-04. BRIDGER ordered; pending. Will need PT OT order when medically cleared. From Home. Diet: Dietary Orders (From admission, onward) Start Ordered 12/04/23 172 Regular Diet Heart Healthy/HTN, CABG,Stroke, (2gNA, low fat, low cholesterol) Diet effective now Question Answer Comment Room Service? Yes Fat restriction: Heart Healthy/HTN, CABG,Stroke, (2gNA, low fat, low cholesterol) 12/04/23 172 Physician Expected Discharge Date: 12/06/2023 Discharge Delays: PT Six Click Score: 13 OT Six Click Score: PT Recommendations: OT Recommendations: New Consults: Consult Orders (From admission, onward) Start Ordered 12/03/23 181 Inpatient consult to Hospitalist Once Specialty: Internal Medicine Provider: (Not yet assigned) Question Answer Comment Consulting Group HOSPITALIST (ADMIT/FLOAT) Reason for Consult? pulseless LLE Level of Consultation Consultation Only 12/03/23 181 Ancillary Consults (From admission, onward) Start Ordered 12/05/23 0236 Inpatient consult to Vascular Wound Care Once Provider: (Not yet assigned) Question Answer Comment Consulting Group WOUND CARE Reason for Consult? ball of foot and under toe wounds 12/05/23 0236 Normal [facility] BASIC METABOLIC PANELon 11-11 Anion gap [Moles/Vol] 7 mmol/L Normal 7-20 [facility] Comment on above: Performed By: #### L [id number] #### [facility] (BEAKER) [address] [place] [address] Calcium [Mass/Vol] 8.6 mg/dL Normal 8.6-10.3 [facility] Comment on above: Performed By: #### L [id number] #### [facility] (BEAKER) [address] [place] [address] Chloride [Moles/Vol] 105 mmol/L Normal 98-107 [facility] Comment on above: Performed By: #### L [id number] #### [facility] ([facility]) [address] [place] [address] CO2 [Moles/Vol] 27 mmol/L Normal 21-31 [facility] Comment on above: Performed By: #### L [id number] #### [facility] ([facility]) [address] [place] [address] Creatinine [Mass/Vol] 0.97 mg/dL Normal 0.60-1.20 [facility] Comment on above: Performed By: #### L [id number] #### [facility] ([facility]) [address] [place] [address] GLOMERULAR FILTRATION RATE ML/MIN/1.73 SQ M.PREDICTED 63.3 mL/min/1.73m*2 Normal >60.0 [facility] Comment on above: Result Comment: The [facility]???s estimated glomerular filtration rate (eGFR) will [...] individuals. Performed By: #### L [id number] #### [facility] ([facility]) [address] [place] [address] Glucose [Mass/Vol] 192 mg/dL High 70-100 [facility] Comment on above: Performed By: #### L [id number] #### [facility] ([facility]) [address] [place] [address] Potassium [Moles/Vol] 4.1 mmol/L Normal 3.5-5.1 [facility] Comment on above: Performed By: #### L [id number] #### [facility] (BEAKER) [address] [place] [address] Sodium [Moles/Vol] 135 mmol/L Low 136-145 [facility] Comment on above: Performed By: #### L [id number] #### [facility] (BEAKER) [address] [place] [address] Urea nitrogen [Mass/Vol] 29 mg/dL High 7-25 [facility] Comment on above: Performed By: #### L [id number] #### [facility] ([facility]) [address] [place] [address] UREA NITROGEN/CREATININE (MASS RATIO) IN SER/PLAS 29.9 Normal [facility] Comment on above: Performed By: #### L [id number] #### [facility] ([facility]) [address] [place] [address] CBCon 12-05-2023 Erythrocyte distribution width (RBC) [Ratio] 13.5 % Normal 11.5-15.0 [facility] Comment on above: Performed By: #### L [id number] #### [facility] ([facility]) [address] [place] [address] ERYTHROCYTE MEAN CORPUSCULAR HEMOGLOBIN CONCENTRATION (G/DL) BY AUTOMATED 32.3 g/dL Normal 32.0-35.0 [facility] Comment on above: Performed By: #### L [id number] #### [facility] ([facility]) [address] [place] [address] Hematocrit (Bld) [Volume fraction] 30.0 % Low 36.0-48.0 [facility] Comment on above: Performed By: #### L [id number] #### [facility] ([facility] [address] [place] [address] Hemoglobin (Bld) [Mass/Vol] 9.7 g/dL Low 12.0-15.0 [facility] Comment on above: Performed By: #### L [id number] #### [facility] (BEAKER) [address] [place] [address] MCH (RBC) [Entitic mass] 28.6 pg Normal 27.0-33.0 [facility] Comment on above: Performed By: #### L [id number] #### [facility] ([facility]) [address] [place] [address] MCV (RBC) [Entitic vol] 88.5 fL Normal 82.0-98.0 [facility] Comment on above: Performed By: #### L [id number] #### [facility] ([facility]) [address] [place] [address] PLATELETS (10*3/UL) IN BLOOD AUTOMATED COUNT 182 10*3/uL Normal 150-400 [facility] Comment on above: Performed By: #### L [id number] #### [facility] ([facility]) [address] [place] [address] RBC (Bld) [#/Vol] 3.39 10*6/uL Low 3.80-5.00 [facility] Comment on above: Performed By: #### L [id number] #### [facility] ([facility]) [address] [place] [address] WBC (Bld) [#/Vol] 8.35 10*3/uL Normal 4.00-10.60 [facility] Comment on above: Performed By: #### L [id number] #### [facility] ([facility]) [address] [place] [address] NURSNOTEon 12-05-2023 NURSNOTE Patient IV removed a nd wheeled out to husbands truck at the main enterance Normal [facility] POCT GLUCOSE METER UNSOLICIT ED RESULTSon 12-05-2023 Glucose [Mass/Vol] 172 mg/dL High 70-105 [facility] Comment on above: Order Comment: Waive d Testing in the ED is performed under the ED CLIA certificate #[id number]. Result Comment: abee rbo Performed By: #### L [id number] #### [facility] ([facility]) [address] [place] [address] Glucose [Mass/Vol] 194 mg/dL High 70-105 [facility] Comment on above: Order Comment: Waive d Testing in the ED is performed under the ED CLIA certificate #[id number]. Result Comment: kret tin Performed By: #### L [id number] #### [facility] ([facility]) [address] [place] [address] APTTon 12-04-2023 ACTIVATED PARTIAL THROMBOPLASTIN TIME IN PPP BY COAGULATION ASSAY 152.0 Seconds Critically high 25.0-35.0 [facility] Comment on above: Result Comment: Clin ical significance of the APTT is questionable in the presence of heparin. Performed By: #### L [id number] #### [facility] ([facility]) [address] [place] [address] ACTIVATED PARTIAL THROMBOPLASTIN TIME IN PPP BY COAGULATION ASSAY 140.0 Seconds Critically high 25.0-35.0 [facility] Comment on above: Result Comment: Clin ical significance of the APTT is questionable in the presence of heparin. Performed By: #### L [id number] #### [facility] ([facility]) [address] [place] [address] BASIC METABOLIC PANELon 11-11 Anion gap [Moles/Vol] 10 mmol/L Normal 7-20 [facility] Comment on above: Performed By: #### L [id number] #### [facility] ([facility]) [address] [place] [address] Calcium [Mass/Vol] 9.6 mg/dL Normal 8.6-10.3 [facility] Comment on above: Performed By: #### L [id number] #### [facility] ([facility]) [address] [place] [address] Chloride [Moles/Vol] 101 mmol/L Normal 98-107 [facility] Comment on above: Performed By: #### L [id number] #### [facility] ([facility]) [address] [place] [address] CO2 [Moles/Vol] 24 mmol/L Normal 21-31 [facility] Comment on above: Performed By: #### L [id number] #### [facility] ([facility]) [address] [place] [address] Creatinine [Mass/Vol] 1.32 mg/dL High 0.60-1.20 [facility] Comment on above: Performed By: #### L [id number] #### [facility] ([facility]) [address] [place] [address] GLOMERULAR FILTRATION RATE ML/MIN/1.73 SQ M.PREDICTED 43.7 mL/min/1.73m*2 Low >60.0 [facility] Comment on above: Result Comment: The [facility]???s estimated glomerular filtration rate (eGFR) will [...] group of individuals. Performed By: #### L [id number] #### [facility] ([facility]) [address] [place] [address] Glucose [Mass/Vol] 268 mg/dL High 70-100 [facility] Comment on above: Performed By: #### L [id number] #### [facility] ([facility]) [address] [place] [address] Potassium [Moles/Vol] 4.5 mmol/L Normal 3.5-5.1 [facility] Comment on above: Performed By: #### L [id number] #### [facility] ([facility]) [address] [place] [address] Sodium [Moles/Vol] 130 mmol/L Low 136-145 [facility] Comment on above: Performed By: #### L [id number] #### [facility] ([facility]) [address] [place] [address] Urea nitrogen [Mass/Vol] 42 mg/dL High 06-03 [facility] Comment on above: Performed By: #### L [id number] #### [facility] ([facility]) [address] [place] [address] UREA NITROGEN/CREATININE (MASS RATIO) IN SER/PLAS 31.8 Normal [facility] Comment on above: Performed By: #### L [id number] #### [facility] ([facility]) [address] [place] [address] CBC WITH AUTO DIFFERENTIALon 12-04-2023 Basophils (Bld) [#/Vol] 0.04 10*3/uL Normal 0.00-0.20 [facility] Comment on above: Performed By: #### L [id number] #### [facility] ([facility]) [address] [place] [address] Basophils/100 WBC (Bld) 0.4 % Normal 0.0-1.0 [facility] Comment on above: Performed By: #### L [id number] #### [facility] ([facility]) [address] [place] [address] Eosinophils (Bld) [#/Vol] 0.18 10*3/uL Normal 0.00-0.50 [facility] Comment on above: Performed By: #### L [id number] #### [facility] ([facility]) [address] [place] [address] Eosinophils/100 WBC (Bld) 1.9 % Normal 0.0-6.0 [facility] Comment on above: Performed By: #### L [id number] #### [facility] ([facility]) [address] [place] [address] Erythrocyte distribution width (RBC) [Ratio] 13.4 % Normal 11.5-15.0 [facility] Comment on above: Performed By: #### L [id number] #### [facility] (BEAKER) [address] [place] [address] ERYTHROCYTE MEAN CORPUSCULAR HEMOGLOBIN CONCENTRATION (G/DL) BY AUTOMATED 33.3 g/dL Normal 32.0-35.0 [facility] Comment on above: Performed By: #### L [id number] #### [facility] (BEAKER) [address] [place] [address] Hematocrit (Bld) [Volume fraction] 30.6 % Low 36.0-48.0 [facility] Comment on above: Performed By: #### L [id number] #### [facility] (BEAKER) [address] [place] [address] Hemoglobin (Bld) [Mass/Vol] 10.2 g/dL Low 12.0-15.0 [facility] Comment on above: Performed By: #### L [id number] #### [facility] (BEAKER) [address] [place] [address] Immature granulocytes (Bld) [#/Vol] 0.02 10*3/uL Normal 0.00-0.20 [facility] Comment on above: Performed By: #### L [id number] #### [facility] (BEAKER) [address] [place] [address] Immature granulocytes/100 WBC (Bld) 0.2 % Normal 0.0-1.0 [facility] Comment on above: Performed By: #### L [id number] #### [facility] (BEAKER) [address] [place] [address] Lymphocytes (Bld) [#/Vol] 3.07 10*3/uL Normal 1.20-4.00 [facility] Comment on above: Performed By: #### L [id number] #### [facility] (BEAKER) [address] [place] [address] Lymphocytes/100 WBC (Bld) 32.0 % Normal 20.0-45.0 [facility] Comment on above: Performed By: #### L [id number] #### [facility] (BEAKER) [address] [place] [address] MCH (RBC) [Entitic mass] 29.1 pg Normal 27.0-33.0 [facility] Comment on above: Performed By: #### L [id number] #### [facility] ([facility]) [address] [place] [address] MCV (RBC) [Entitic vol] 87.2 fL Normal 82.0-98.0 [facility] Comment on above: Performed By: #### L [id number] #### [facility] ([facility]) [address] [place] [address] Monocytes (Bld) [#/Vol] 0.96 10*3/uL Normal 0.10-1.00 [facility] Comment on above: Performed By: #### L [id number] #### [facility] ([facility]) [address] [place] [address] Monocytes/100 WBC (Bld) 10.0 % Normal 5.0-12.0 [facility] Comment on above: Performed By: #### L [id number] #### [facility] ([facility]) [address] [place] [address] Neutrophils (Bld) [#/Vol] 5.33 10*3/uL Normal 1.60-7.60 [facility] Comment on above: Performed By: #### L [id number] #### [facility] ([facility]) [address] [place] [address] Neutrophils/100 WBC (Bld) 55.5 % Normal 40.0-72.0 [facility] Comment on above: Performed By: #### L [id number] #### [facility] ([facility]) [address] [place] [address] NRBC (PER 100 WBCS) BY AUTOMATED COUNT 0.0 % Normal 0 [facility] Comment on above: Performed By: #### L [id number] #### [facility] ([facility] [address] [place] [address] PLATELETS (10*3/UL) IN BLOOD AUTOMATED COUNT 207 10*3/uL Normal 150-400 [facility] Comment on above: Performed By: #### L [id number] #### [facility] ([facility]) [address] [place] [address] RBC (Bld) [#/Vol] 3.51 10*6/uL Low 3.80-5.00 [facility] Comment on above: Performed By: #### L [id number] #### [facility] ([facility]) [address] [place] [address] WBC (Bld) [#/Vol] 9.60 10*3/uL Normal 4.00-10.60 [facility] Comment on above: Performed By: #### L [id number] #### [facility] ([facility]) [address] [place] [address] CONSULTon 12-04-2023 CONSULT -- Attestation signed by Jennifer Vaca MD at 12/04/2023 1:00 PM Pt with severe pain left leg Has no pulses History of PVD Plan for angiogram and intervention Reason For Consult left leg critical limb ischemia Referring Provider: [facility] emergency department History Of Present Illness [...] emergency department after being referred by her auditing clerk for worsening leg pain. It is worse at night. She also reports significant pain in the toes. Past Medical History She has a past medical history of A-fib ([facility]), Aortic valve stenosis, Coronary artery disease, Diabetes mellitus ([facility]), Hypertension, and Peripheral vascular disease ([facility]). Surgical History She has a [...] 274 (H) (more content not included)... Normal [facility] CONSULT -- Attestation signed by Bev [...] has a past medical history of A-fib ([facility]), Aortic valve stenosis, Coronary artery disease, Diabetes mellitus ([facility]), Hypertension, and Peripheral vascular disease ([facility]). Surgical History She has a [...] -- 62 25 95 % -- -- 12/03/23 2005 152/60 -- -- 63 15 98 % [...] Lab Results (more content not included)... Normal [facility] OPNOTEon 12-04-2023 OPNOTE LEFT LOWER EXTREMITY ANGIOGRAM (L), AORTOGRAM, LEFT LOWER EXTREMITY JETSTREAM AND ATHERECTOMY/THROMBECOM Y, LEFT LOWER EXTREMITY DRUG COATED BALLOON ANGIOPLASTY OF SFA AND POLITEAL ARTERIES, LEFT LOWER EXTREMITY DISTAL SFA AND POPLITEAL COVERED STENTING Operative Note Date: 12/04/2023 Location: [facility] OR Name: Marimar Patel, : 1955, Diagnosis Pre-op Diagnosis * PAD (peripheral artery disease) (CMS/HCC) [I73.9] Post-op Diagnosis * PAD (peripheral artery disease) (CMS/HCC) [I73.9] Procedures LEFT LOWER EXTREMITY ANGIOGRAM 96152 - MS OFFICE/OUTPT VISIT,PROCEDURE ONLY AORTOGRAM 96788 - MS OFFICE/OUTPT VISIT,PROCEDURE ONLY LEFT LOWER EXTREMITY JETSTREAM AND ATHERECTOMY/THROMBECOM Y 31292 - MS OFFICE/OUTPT VISIT,PROCEDURE ONLY LEFT LOWER EXTREMITY DRUG COATED BALLOON ANGIOPLASTY OF SFA AND POLITEAL ARTERIES 48558 - MS OFFICE/OUTPT VISIT,PROCEDURE ONLY LEFT LOWER EXTREMITY DISTAL SFA AND POPLITEAL COVERED STENTING 11096 - [place] OFFICE/OUTPT VISIT,PROCEDURE ONLY Surgeons * Jennifer Vaca - Primary Procedure Summary Anesthesia: General ASA: III Estimated Blood Loss: 20 mL Total IV Fluids: mL Drains: * None in log * Implants Type Name Action Serial No. Stent STENT,[id number] - [id number] - [id number] Implanted [id number] Staff: Supportive Employment Case Manager: Fercho Farrell RN; Tonja Kelly; Olvin Ley RN Scrub Person: Anabelle Wolf Science Writer: Jaime Parekh CSA Indications: Marimar Patel is an 68 y.o. female who is having surgery for PAD (peripheral artery disease) (CMS/HCC) [I73.9]. Patient presented with wrist pain and [...] common femoral artery. Micro sheath and 6 Burkin[place] sheath were inserted. [place] flush catheter was placed in the abdominal aorta. Angiogram was done for the aorta and the iliac arteries. After that the catheter was placed in the contralateral external iliac artery angiogram was done for the left lower extremity. At this stage patient was given heparin. And then the 6 Burkinan sheath exchanged to a 7 Burkinan sheath with the tip in the superficial [...] was persistent because of this inserted a [place] [employer] 6 x 10 cm cover the stent followed b (more content not included)... Normal [facility] POCT GLUCOSE METER UNSOLICIT ED RESULTSon 12-04-2023 Glucose [Mass/Vol] 173 mg/dL High 70-105 [facility] Comment on above: Order Comment: Waive d Testing in the ED is performed under the ED CLIA certificate #[id number]. Result Comment: sbel air Performed By: #### L [id number] #### [facility] ([facility]) [address] [place] [address] Glucose [Mass/Vol] 176 mg/dL High 70-105 [facility] Comment on above: Order Comment: Waive d Testing in the ED is performed under the ED CLIA certificate #[id number]. Result Comment: czyd orc Performed By: #### L [id number] #### [facility] ([facility]) [address] [place] [address] Glucose [Mass/Vol] 284 mg/dL High 70-105 [facility] Comment on above: Order Comment: Waive d Testing in the ED is performed under the ED CLIA certificate #[id number]. Result Comment: spar [email or web address] Performed By: #### L [id number] #### [facility] ([facility]) [address] [place] [address] TROPONIN Ion 12-04-2023 Troponin I.cardiac [Mass/Vol] 0.02 ng/mL Normal 0.00-0.04 [facility] Comment on above: Performed By: #### L [id number] #### [facility] ([facility]) [address] [place] [address] APTTon 12-03-2023 ACTIVATED PARTIAL THROMBOPLASTIN TIME IN PPP BY COAGULATION ASSAY 35.8 Seconds High 25.0-35.0 [facility] Comment on above: Result Comment: Clin ical significance of the APTT is questionable in the presence of heparin. Performed By: #### L [id number] #### [facility] ([facility]) [address] [place] [address] BASIC METABOLIC PANELon 11-11 Anion gap [Moles/Vol] 13 mmol/L Normal 7-20 [facility] Comment on above: Performed By: #### L [id number] ####[facility] ([facility])[address] [place] [address] Calcium [Mass/Vol] 11.5 mg/dL High 8.6-10.3 [facility] Comment on above: Performed By: #### L [id number] ####[facility] ([facility])[address] [place] [address] Chloride [Moles/Vol] 93 mmol/L Low 98-107 [facility] Comment on above: Performed By: #### L [id number] ####[facility] ([facility])[address] [place] [address] CO2 [Moles/Vol] 27 mmol/L Normal 21-31 [facility] Comment on above: Performed By: #### L [id number] ####[facility] ([facility])[address] [place] [address] Creatinine [Mass/Vol] 1.68 mg/dL High 0.60-1.20 [facility] Comment on above: Performed By: #### L [id number] ####[facility] ([facility])[address] [place] [address] GLOMERULAR FILTRATION RATE ML/MIN/1.73 SQ M.PREDICTED 32.7 mL/min/1.73m*2 Low >60.0 [facility] Comment on above: Result Comment: The [facility]???s estimated glomerular filtration rate (eGFR) will [...] of individuals. Performed By: #### L [id number] ####[facility] ([facility])[address] [place] [address] Glucose [Mass/Vol] 274 mg/dL High 70-100 [facility] Comment on above: Performed By: #### L [id number] ####[facility] ([facility])[address] [place] [address] Potassium [Moles/Vol] 5.1 mmol/L Normal 3.5-5.1 [facility] Comment on above: Performed By: #### L [id number] ####[facility] ([facility])[address] [place] [address] Sodium [Moles/Vol] 128 mmol/L Low 136-145 [facility] Comment on above: Performed By: #### L [id number] ####[facility] ([facility])[address] [place] [address] Urea nitrogen [Mass/Vol] 55 mg/dL High 7-25 [facility] Comment on above: Performed By: #### L [id number] ####[facility] ([facility])[address] [place] [address] UREA NITROGEN/CREATININE (MASS RATIO) IN SER/PLAS 32.7 Normal [facility] Comment on above: Performed By: #### L [id number] ####[facility] ([facility])[address] [place] [address] CBC WITH AUTO DIFFERENTIALon 12-03-2023 Basophils (Bld) [#/Vol] 0.05 10*3/uL Normal 0.00-0.20 [facility] Comment on above: Performed By: #### L [id number] #### [facility] ([facility]) [address] [place] [address] Basophils/100 WBC (Bld) 0.5 % Normal 0.0-1.0 [facility] Comment on above: Performed By: #### L [id number] #### [facility] [address] [place] [address] Eosinophils (Bld) [#/Vol] 0.21 10*3/uL Normal 0.00-0.50 [facility] Comment on above: Performed By: #### L [id number] #### [facility] ([facility]) [address] [place] [address] Eosinophils/100 WBC (Bld) 1.9 % Normal 0.0-6.0 [facility] Comment on above: Performed By: #### L [id number] #### [facility] ([facility]) [address] [place] [address] Erythrocyte distribution width (RBC) [Ratio] 13.2 % Normal 11.5-15.0 [facility] Comment on above: Performed By: #### L [id number] #### [facility] ([facility]) [address] [place] [address] ERYTHROCYTE MEAN CORPUSCULAR HEMOGLOBIN CONCENTRATION (G/DL) BY AUTOMATED 33.5 g/dL Normal 32.0-35.0 [facility] Comment on above: Performed By: #### L [id number] #### [facility] ([facility]) [address] [place] [address] Hematocrit (Bld) [Volume fraction] 34.6 % Low 36.0-48.0 [facility] Comment on above: Performed By: #### L [id number] #### [facility] ([facility]) [address] [place] [address] Hemoglobin (Bld) [Mass/Vol] 11.6 g/dL Low 12.0-15.0 [facility] Comment on above: Performed By: #### L [id number] #### [facility] [address] [place] [address] Immature granulocytes (Bld) [#/Vol] 0.03 10*3/uL Normal 0.00-0.20 [facility] Comment on above: Performed By: #### L [id number] #### [facility] ([facility]) [address] [place] [address] Immature granulocytes/100 WBC (Bld) 0.3 % Normal 0.0-1.0 [facility] Comment on above: Performed By: #### L [id number] #### [facility] ([facility] [address] [place] [address] Lymphocytes (Bld) [#/Vol] 3.27 10*3/uL Normal 1.20-4.00 [facility] Comment on above: Performed By: #### L [id number] #### [facility] ([facility]) [address] [place] [address] Lymphocytes/100 WBC (Bld) 30.0 % Normal 20.0-45.0 [facility] Comment on above: Performed By: #### L [id number] #### [facility] ([facility]) [address] [place] [address] MCH (RBC) [Entitic mass] 28.3 pg Normal 27.0-33.0 [facility] Comment on above: Performed By: #### L [id number] #### [facility] ([facility]) [address] [place] [address] MCV (RBC) [Entitic vol] 84.4 fL Normal 82.0-98.0 [facility] Comment on above: Performed By: #### L [id number] #### [facility] ([facility]) [address] [place] [address] Monocytes (Bld) [#/Vol] 1.05 10*3/uL High 0.10-1.00 [facility] Comment on above: Performed By: #### L [id number] #### [facility] ([facility]) [address] [place] [address] Monocytes/100 WBC (Bld) 9.6 % Normal 5.0-12.0 [facility] Comment on above: Performed By: #### L [id number] #### [facility] [address] [place] [address] Neutrophils (Bld) [#/Vol] 6.28 10*3/uL Normal 1.60-7.60 [facility] Comment on above: Performed By: #### L [id number] #### [facility] ([facility]) [address] [place] [address] Neutrophils/100 WBC (Bld) 57.7 % Normal 40.0-72.0 [facility] Comment on above: Performed By: #### L [id number] #### [facility] ([facility]) [address] [place] [address] NRBC (PER 100 WBCS) BY AUTOMATED COUNT 0.0 % Normal 0 [facility] Comment on above: Performed By: #### L [id number] #### [facility] ([facility]) [address] [place] [address] PLATELETS (10*3/UL) IN BLOOD AUTOMATED COUNT 237 10*3/uL Normal 150-400 [facility] Comment on above: Performed By: #### L [id number] #### [facility] ([facility]) [address] [place] [address] RBC (Bld) [#/Vol] 4.10 10*6/uL Normal 3.80-5.00 [facility] Comment on above: Performed By: #### L [id number] #### [facility] ([facility]) [address] [place] [address] WBC (Bld) [#/Vol] 10.89 10*3/uL High 4.00-10.60 [facility] Comment on above: Performed By: #### L [id number] #### [facility] ([facility]) [address] [address] CTA AORTA AND BILATERAL ILIO FEMORAL RUNOFF [...] to the ankle. Electronically signed: Gayle Quintanilla. [facility] EDNURSon 12-03-2023 EDNURS Mode of arrival (squ ad #, walk in, police, etc): Walk in Chief complaint(s): Foot wound, leg/calf pain Arrival Note (brief scenario, treatment [employer], etc): Patient states she had testing/labs done for her leg sores/pain. Patient states doctor set it up for her to get angioplasty. [facility] EDPROVon 12-03-2023 EDPROV HPI Chief Complaint Patient [...] Attestion Mark Gaines NP 12/03/23 1649 Normal [facility] HEMOGLOBIN A1Con 12-03-2023 Glucose [Mass/Vol] 252 mg/dL Normal [facility] Comment on above: Performed By: #### L [id number] #### [facility] ([facility]) [address] [place] [address] HbA1c (Bld) [Mass fraction] 10.4 % High 4.0-6.0 [facility] Comment on above: Performed By: #### L [id number] #### [facility] ([facility]) [address] [place] [address] HPon 12-03-2023 HP History Of Present Illness [...] 10*3/uL 6.28 (more content not included)... Normal [facility] POCT GLUCOSE METER UNSOLICIT ED RESULTSon 12-03-2023 Glucose [Mass/Vol] 337 mg/dL High 70-105 [facility] Comment on above: Order Comment: Waive d Testing in the ED is performed under the ED CLIA certificate #[id number]. Result Comment: ton [email or web address] Performed By: #### L [id number] ####[facility] (HOMER)[address] [place] [address] PROTIME-INRon 12-03-2023 INR IN PPP BY COAGULATION ASSAY 1.24 High 0.90-1.10 [facility] Comment on above: Result Comment: [...] RANGE. CHEST 1995;108:[id number]-246S. Performed By: #### L [id number] #### [facility] ([facility]) [address] [place] [address] PROTHROMBIN TIME (PT) IN PPP BY COAGULATION ASSAY 15.7 Seconds High 12.3-14.8 [facility] Comment on above: Performed By: #### L [id number] #### [facility] ([facility]) [address] [place] [address] Telephoneon 10-29-2023 Telephone [id number] Pancho Patel 1955 F Date Provider Department [place] 10/29/2023 [id number] VILLANUEVA [facility] Family History Problem Relation Age of Onset Diabetes Mother Cancer Mother Heart disease Father Alcohol abuse Brother Diabetes Brother Family Status - Relation Status Age at Mother Father Brother [facility] US UNI ankle/arm indiceson 0 02-24-2023 US UNI ankle/arm indices [facility] Main [place] [address] [place] [address] Ultrasound Report Signed Patient: Marimar Patel MR#: [id number] : 1955 Acct:[id number] Age/Sex: 67 / F ADM Date: 02/19/23 Loc: [facility] Room: Type: [facility] Attending Dr: Geo Mathew MD Ordering Provider: [...] Geo Mathew MD02/24/2023 3:16 PM Dictation Location: [place] [address] Tech: Ale Lim Transcribed By: JOSUE 02/24/23 1516 Dictated By: Geo Mathew MD 02/24/23 1515 Signed By: 02/24/23 15[address] [facility] [address] STROKE HEAD WOon 02-01-20 [...] by: CHANTAL KILLIAN Date: 2023-01-31 12:44 Normal [facility] 36on 01-28-2023 36 Lmom for patient to call to schedule appt Normal [facility] 36on 01-22-2023 36 Hi. I am not sure of your process yet with refilling medications Normal [facility] Refillon 01-21-2023 Refill [id number] Pancho Patel L 1955 F Date Provider Department Center 01/21/2023 [id number] MAGDALENO HVCVASENDO [facility] Family History Problem Relation Age of Onset Diabetes Mother Cancer Mother Heart disease Father Alcohol abuse Brother Diabetes Brother Family Status - Relation Status Age at Mother Father Brother Reason for Visit and Comments: Med Refill [[id number]] Normal [facility] Blood Urea Nitrogenon 2022 Urea nitrogen [Mass/Vol] 48 mg/dL High 9-23 [facility] Comment on above: Performed By: #### C REAT, BUN #### [facility] [address] [place] [address] Creatinineon 01-13-2023 Creatinine [Mass/Vol] 1.75 mg/dL High 0.44-1.03 [facility] Comment on above: Performed By: #### C REAT, BUN #### [facility] [address] Creatinine Clr Calc Pharmacy 27.91 [facility] Comment on above: Result Comment: PERF ORMED BY: [place] [address] PATHOLOGIST ELECTRICAL LOGGING OPERATOR FAHAD ASKEW M.D. Performed By: #### C REAT, BUN #### [facility] [address] [place] [address] Estimated GFR ( Lynn 35 Normal [facility] Comment on above: Result Comment: GFR estimated reference range: According to KDOQI guidelines, <60 ml/min/1.73m2 is sufficient to diagnose a patient with chronic kidney disease. Performed By: #### C RESARAVANAN, BUN #### [facility] [address] Estimated GFR (Non- Am 29 Normal [facility] Comment on above: Performed By: #### C REAT, BUN #### [facility] [address] Creatinine and Glomerular fi ltration rate.predicted panel (S/P/Bld)Ordered By: Geo Mathew on 01-13-2023 Creatinine [Mass/Vol] 1.75 mg/dL 0.44-1.03 [facility] Estimated glomerular filtrat ion rate (GFR) non- AmericanOrdered By: Geo Mathew on 01-13-2023 GFR/1.73 sq M.predicted among non-blacks MDRD (S/P/Bld) [Vol rate/Area] 29 mL/Min [facility] No Panel InformationOrdered By: Geo Mathew on 01-13-2023 Estimated GFR () 35 mL/Min [facility] Comment on above: GFR estimated refere nce range: According to KDOQI guidelines, <60 ml/min/1.73m2 is sufficient to diagnose a patient with chronic kidney disease. Pharmacy Creatinine Clearance (Chem 27.91 [facility] Urea nitrogen [Mass/volume] in Serum or PlasmaOrdered By: Geo Mathew on 01-13-2023 Urea nitrogen [Mass/Vol] 48 mg/dL 08-02 [facility] ALBUMINon 08-17-2022 Albumin [Mass/Vol] 3.5 g/dL Normal 3.4-5.0 [facility] Comment on above: Performed By: #### B MP, PREALB, ALB ####[facility] [id number] [place] [address]DrIndu Sruthi Hawk CBC AUTO DIFFon 08-17-2022 BASO # 0.0 103/ul Normal 0.0-0.1 [facility] Comment on above: Performed By: #### C BC #### [facility] [address] [place] [address] Dr. Sruthi Arechiga Basophils/100 WBC (Bld) 0.5 % Normal 0.2-2.0 [facility] Comment on above: Performed By: #### C BC #### [facility] [address] [place] [address] Dr. Sruthi Arechiga EO # 0.3 103/ul Normal 0.0-0.7 [facility] Comment on above: Performed By: #### C BC #### [facility] [address] [place] [address] Dr. Sruthi Arechiga Eosinophils/100 WBC (Bld) 3.6 % Normal 0.9-7.0 [facility] Comment on above: Performed By: #### C BC #### [facility] [address] [place] [address] Dr. Sruthi Arechiga Erythrocyte distribution width (RBC) [Ratio] 14.5 % Normal 11.0-15.0 [facility] Comment on above: Performed By: #### C BC #### [facility] [address] [place] [address] Dr. Sruthi Arechiga Hematocrit (Bld) [Volume fraction] 37.7 % Normal 36.0-48.0 [facility] Comment on above: Performed By: #### C BC #### [facility] [address] [place] [address] Dr. Sruthi Arechiga Hemoglobin (Bld) [Mass/Vol] 11.9 g/dL Critically low 12.0-16.0 [facility] Comment on above: Performed By: #### C BC #### [facility] [address] [place] [address] Dr. Sruthi Arechiga IG # 0.02 10e3/ul Normal 0.00-0.03 [facility] Comment on above: Performed By: #### C BC #### [facility] [address] [place] [address] Dr. Sruthi Arechiga IG % 0.2 % Normal 0.0-0.5 [facility] Comment on above: Performed By: #### C BC #### [facility] [address] [place] [address] Dr. Sruthi Arechiga LYMPH # 2.7 103/ul Normal 1.2-3.8 [facility] Comment on above: Performed By: #### C BC #### [facility] [address] [place] [address] Dr. Sruthi Arechiga Lymphocytes/100 WBC (Bld) 32.2 % Normal 20.5-60.0 [facility] Comment on above: Performed By: #### C BC #### [facility] [address] [place] [address] Dr. Sruthi Arechiga MANUAL DIFF REQ NO Normal [facility] Comment on above: Performed By: #### C BC #### [facility] [address] [place] [address] Dr. Sruthi Arechiga MCH (RBC) [Entitic mass] 26.8 pg Normal 26.7-34.0 [facility] Comment on above: Performed By: #### C BC #### [facility] [address] [place] [address] Dr. Sruthi Arechiga MCHC (RBC) [Mass/Vol] 31.6 g/dL Normal 29.9-35.2 [facility] Comment on above: Performed By: #### C BC #### [facility] [address] [place] [address] Dr. Sruthi Arechiga MCV (RBC) [Entitic vol] 84.9 fL Normal 81.0-99.0 [facility] Comment on above: Performed By: #### C BC #### [facility] [address] [place] [address] Dr. Sruthi Arechiga MONO # 0.8 103/ul Normal 0.3-0.8 [facility] Comment on above: Performed By: #### C BC #### [facility] [address] [place] [address] Dr. Sruthi Arechiga Monocytes/100 WBC (Bld) 9.6 % Normal 1.7-12.0 [facility] Comment on above: Performed By: #### C BC #### [facility] [address] [place] [address] Dr. Sruthi Arechiga NEUT # 4.5 103/ul Normal 1.4-6.5 [facility] Comment on above: Performed By: #### C BC #### [facility] [address] [place] [address] Dr. Sruthi Arechiga Neutrophils/100 WBC (Bld) 53.9 % Normal 43.0-75.0 [facility] Comment on above: Performed By: #### C BC #### [facility] [address] [place] [address] Dr. Sruthi Arechiga Platelet mean volume (Bld) [Entitic vol] 10.8 fL Normal 9.5-13.5 [facility] Comment on above: Performed By: #### C BC #### [facility] [address] [place] [address] Dr. Sruthi Arechiga PLT 246 103/ul Normal 150-450 [facility] Comment on above: Performed By: #### C BC #### [facility] [address] [place] [address] Dr. Sruthi Arechiga RBC 4.44 106/ul Normal 4.20-5.40 [facility] Comment on above: Performed By: #### C BC #### [facility] [address] [place] [address] Dr. Sruthi Arechiga WBC 8.4 103/ul Normal 4.0-11.0 [facility] Comment on above: Performed By: #### C BC #### [facility] [address] [place] [address] Dr. Sruthi Arechiga Covid-19 PCR (CVDTB)on SARS-CoV-2 (COVID-19) RNA KOLE+probe Ql (Unsp spec) Not detected Normal NOT DETECTED [facility] Comment on above: Result Comment: This test is not yet approved or cleared by the [place] FDA. When there are no FDA-approved or cleared tests available, and other criteria are met, FDA can make tests available under an emergency access mechanism called an Emergency Use Authorization (EUA). The EUA for this test is supported by the [place] of Health and Human Service's (HHS's) declaration [...] consistent with SARS-CoV-2. Performed By: #### C VDTB #### [facility] [address] [place] [address] [address] Sruthi Arechiga GLYCOHEMOGLOBIN A1Con 2021 ADA RECOMMENDATION SEE BELOW Normal [facility] Comment on above: Result Comment: ADA RECOMMENDED LIMIT 4.0 - 6.0 ADA THERAPEUTIC TARGET < 7.0 ACTION SUGGESTED > 7.0 Performed By: #### H STROPN #### [facility] [address] [place] [address] Dr. Sruthi Arechiga Glucose [Mass/Vol] 255 mg/dL Normal [facility] Comment on above: Performed By: #### H STROPN #### [facility] [address] [place] [address] [address] Sruthi Arechiga HbA1c (Bld) [Mass fraction] 10.5 % Critically high 4.5-6.2 [facility] Comment on above: Performed By: #### H STROPN #### [facility] [address] [place] [address] [address] Sruthi Arechiga MRSA NARES #1on 08-17-2022 MRSA NARES #1 Culture Observations : NO GROWTH OF MRSA AT 48 HOURS. Normal [facility] Comment on above: Performed By: #### M RSAN1 ####[facility] [id number] [place] [address]Dr. Sruthi Arechiga PREALBUMINon 08-17-2022 Prealbumin [Mass/Vol] 23.6 mg/dL Normal 20.9-45.5 [facility] Comment on above: Performed By: #### B MP, PREALB, ALB ####[facility] [id number] [place] [address]Dr. Sruthi Arechiga PROF CHEM 8 (BAS METB)on Anion gap [Moles/Vol] 11.2 mmol/L Normal [facility] Comment on above: Performed By: #### B MP, PREALB, ALB ####[facility] [id number] [place] [address]Dr. Sruthi Arechiga Calcium [Mass/Vol] 9.1 mg/dL Normal 8.5-10.1 [facility] Comment on above: Performed By: #### B MP, PREALB, ALB ####[facility] [facility] Mxrivhhnag[address] [place], [place] [address]Dr. Sruthi Arechiga Chloride [Moles/Vol] 105 mmol/L Normal 98-107 [facility] Comment on above: Performed By: #### B MP, PREALB, ALB ####[facility] Njsl[address]rakln[address] [place], [place] [address]Dr. Sruthi Arechiga CO2 [Moles/Vol] 26.3 mmol/L Normal 21.0-32.0 [facility] Comment on above: Performed By: #### B MP, PREALB, ALB ####[facility] Sieupfbulh[address] [place], [place] [address]Dr. Sruthi Arechiga Creatinine [Mass/Vol] 0.72 mg/dL Normal 0.55-1.02 [facility] Comment on above: Performed By: #### B MP, PREALB, ALB ####[facility] Eqvnannqwo[address] [place], [place] [address]Dr. Sruthi Arechiga EGFR-AF [place] R[place] >60 Normal >=60 [facility] Comment on above: Performed By: #### B MP, PREALB, ALB ####[facility] Hjcreqehsb[address] [place], [place] [address]Dr. Sruthi Hawk EGFR-NON AF [place] RICAN >60 Normal >=60 [facility] Comment on above: Performed By: #### B MP, PREALB, ALB ####[facility] [address] [place] [address]Dr. Sruthi Arechiga Glucose [Mass/Vol] 119 mg/dL Critically high 74-106 T [facility] Comment on above: Performed By: #### B MP, PREALB, ALB ####[facility] Dhbtvsavyt[address] [place] [address]Dr. Sruthi Arechiga Potassium [Moles/Vol] 4.5 mmol/L Normal 3.5-5.1 [facility] Comment on above: Performed By: #### B MP, PREALB, ALB ####[facility] Djnludguyu[address] [place], [place] [address]Dr. Sruthi Arechiga Sodium [Moles/Vol] 138 mmol/L Normal 136-145 [facility] Comment on above: Performed By: #### B MP, PREALB, ALB ####[facility] Cagxcnlmen[address] [place], [place] [address]Dr. Sruthi Arechiga Urea nitrogen [Mass/Vol] 18.0 mg/dL Normal 7.0-18.0 [facility] Comment on above: Performed By: #### B MP, PREALB, ALB ####[facility] Ptfppriaol[address] [place] [address]Dr. Sruthi Arechiga Urea nitrogen/Creatinine [Mass ratio] 25.0 mg/mg Normal [facility] Comment on above: Performed By: #### B MP, PREALB, ALB ####[facility] Vqmvzcgcgd[address] [place], [place] [address]Dr. Sruthi Arechiga Covid-19 PCR ([facility])on 07-11 SARS-CoV-2 (COVID-19) RNA KOLE+probe Ql (Unsp spec) Not detected Normal NOT DETECTED [facility] Comment on above: Result Comment: When diagnostic [...] for this test is supported by the [place] of [employer] and [employer] Service's declaration that [...] used). Performed By: #### C VDTB #### [facility] Laboratory [address] [address] [address] Sruthi Arechiga BNPon 07-07-2022 Natriuretic peptide B (Bld) [Mass/Vol] 1389.0 pg/mL Critically high <=900.0 [facility] Comment on above: Performed By: #### B TIMBER HARVESTER OPERATOR, BMP ####[facility] Gdtyfumdoh[address] [place], [place] [address]DrIndu Arechiga CBC AUTO DIFFon 07-07-2022 BASO # 0.0 103/ul Normal 0.0-0.1 [facility] Comment on above: Performed By: #### C BC ####[facility] Vbazjxplhg[address] [place] [address]DrIndu Arechiga Basophils/100 WBC (Bld) 0.5 % Normal 0.2-2.0 [facility] Comment on above: Performed By: #### C BC ####[facility] Jsiebwzzvv87[address] [place] [address]DrIndu Arechiga EO # 0.2 103/ul Normal 0.0-0.7 [facility] Comment on above: Performed By: #### C BC ####[facility] Yvereutjzj[address] [place], [place] [address]DrIndu Arechiga Eosinophils/100 WBC (Bld) 2.4 % Normal 0.9-7.0 [facility] Comment on above: Performed By: #### C BC ####[facility] Mfipfarvku95[address] [place], [place] [address]DrIndu Arechiga Erythrocyte distribution width (RBC) [Ratio] 13.2 % Normal 11.0-15.0 [facility] Comment on above: Performed By: #### C BC ####[facility] Tpzzjffsad[address] [place] [address]DrIndu Sruthi Arechiga Hematocrit (Bld) [Volume fraction] 32.4 % Critically low 36.0-48.0 [facility] Comment on above: Performed By: #### C BC ####[facility] Yyljaehfxk[address] [place] [address]DrIndu Arechiga Hemoglobin (Bld) [Mass/Vol] 10.2 g/dL Critically low 12.0-16.0 [facility] Comment on above: Performed By: #### C BC ####[facility] Juqoxwyaon[address] [place], [place] [address]DrIndu Arechiga IG # 0.04 10e3/ul Critically high 0.00-0.03 [facility] Comment on above: Performed By: #### C BC ####[facility] Jtbifuilkk[address] [place], [place] [address]DrIndu Arechiga IG % 0.5 % Normal 0.0-0.5 [facility] Comment on above: Performed By: #### C BC ####[facility] Ruiytcbita[address] [place], [place] [address]DrIndu Arechiga LYMPH # 2.1 103/ul Normal 1.2-3.8 [facility] Comment on above: Performed By: #### C BC ####[facility] Yaxoawlkni[address] [place], [place] [address]DrIndu Arechiga Lymphocytes/100 WBC (Bld) 23.9 % Normal 20.5-60.0 [facility] Comment on above: Performed By: #### C BC ####[facility] Dkrgcrypbo[address] [place], [place] [address]DrIndu Arechiga MANUAL DIFF REQ NO Normal [facility] Comment on above: Performed By: #### C BC ####[facility] Tmcuvlgjyv[address] [place], [place] [address]DrIndu Arechiga MCH (RBC) [Entitic mass] 26.8 pg Normal 26.7-34.0 [facility] Comment on above: Performed By: #### C BC ####[facility] [address]am[address] [place] [phone]. Sruthi Hawk MCHC (RBC) [Mass/Vol] 31.5 g/dL Normal 29.9-35.2 [facility] Comment on above: Performed By: #### C BC ####[facility] [address]foaf[address] [place] [phone] Wraysven Hawk MCV (RBC) [Entitic vol] 85.0 fL Normal 81.0-99.0 [facility] Comment on above: Performed By: #### C BC ####[facility] [address]umjk[address] [place] [phone] Arechiga MONO # 1.1 103/ul Critically high 0.3-0.[address] [facility] Comment on above: Performed By: #### C BC ####[facility] Speofmzghu[address] [place] [address]DrIndu Arechiga Monocytes/100 WBC (Bld) 13.1 % Critically high 1.7-12.0 [facility] Comment on above: Performed By: #### C BC ####[facility] Zvfjnvltad[address] [place], [place] [address]DrIndu Wraysven Hawk NEUT # 5.2 103/ul Normal 1.4-6.5 [facility] Comment on above: Performed By: #### C BC ####[facility] [address]due[address] [place] [phone] Arechiga Neutrophils/100 WBC (Bld) 59.6 % Normal 43.0-75.0 [facility] Comment on above: Performed By: #### C BC ####[facility] [address]xsvyaxid60[address] [place] [phone] Arechiga Platelet mean volume (Bld) [Entitic vol] 12.6 fL Normal 9.5-13.5 [facility] Comment on above: Performed By: #### C BC ####[facility] [address]nlt[address] [place] [phone] Arechiga PLT 146 103/ul Critically low 150-[address] [facility] Comment on above: Performed By: #### C BC ####[facility] Yxnvzokxva30[address] [place] [phone]. Sruthi Arechiga RBC 3.81 106/ul Critically low 4.20-5.[address] [facility] Comment on above: Performed By: #### C BC ####[facility] Bxcyfdwkil[address] [place] [phone]. Sruthi Arechiga WBC 8.7 103/ul Normal 4.0-11.0 [facility] Comment on above: Performed By: #### C BC ####[facility] G[address]qsbqmfmo[address] [place] [phone]. Sruthi Arechiga PROF CHEM 8 (BAS METB)on Anion gap [Moles/Vol] 12.0 mmol/L Normal [facility] Comment on above: Performed By: #### B TIMBER HARVESTER OPERATOR, BMP ####[facility] Baachuzbfx[address] [place] [address]Dr. Sruthi Arechiga Calcium [Mass/Vol] 9.0 mg/dL Normal 8.5-10.1 [facility] Comment on above: Performed By: #### B TIMBER HARVESTER OPERATOR, BMP ####[facility] Nl[address]vxezn[address] [place], [place] [address]Dr. Sruthi Arechiga Chloride [Moles/Vol] 99 mmol/L Normal 98-107 [facility] Comment on above: Performed By: #### B TIMBER HARVESTER OPERATOR, BMP ####[facility] [address]ujcgdbse[address] [place] [address]Dr. Sruthi Arechiga CO2 [Moles/Vol] 29.4 mmol/L Normal 21.0-32.0 [facility] Comment on above: Performed By: #### B TIMBER HARVESTER OPERATOR, BMP ####[facility] R[address]atcmzz[address] [place] [phone]. Sruthi Arechiga Creatinine [Mass/Vol] 0.86 mg/dL Normal 0.55-1.02 [facility] Comment on above: Performed By: #### B TIMBER HARVESTER OPERATOR, BMP ####[facility] [address]vntao[address] [place] [phone]. Sruthi Arechiga EGFR-AF [place] R[place] >60 Normal >=60 [facility] Comment on above: Performed By: #### B TIMBER HARVESTER OPERATOR, BMP ####[facility] [address]cmadu[address] [place] [phone]. Sruthi Arechiga EGFR-NON AF [place] R[place] >60 Normal >=60 [facility] Comment on above: Performed By: #### B TIMBER HARVESTER OPERATOR, BMP ####[facility] [address]vtwjnagf14[address] [place] [phone]. Sruthi Arechiga Glucose [Mass/Vol] 185 mg/dL Critically high 74-106 [facility] Comment on above: Performed By: #### B TIMBER HARVESTER OPERATOR, BMP ####[facility] [address]dqj[address]kdok[address] [place] [address]Dr. Sruthi Arechiga Potassium [Moles/Vol] 4.4 mmol/L Normal 3.5-5.1 [facility] Comment on above: Performed By: #### B TIMBER HARVESTER OPERATOR, BMP ####[facility] Tdgpvoztji[address] [place] [address]Dr. Sruthi Arechiga Sodium [Moles/Vol] 136 mmol/L Normal 136-145 [facility] Comment on above: Performed By: #### B TIMBER HARVESTER OPERATOR, BMP ####[facility] Jlwdmgdlpv[address] [place] [address]DrIndu Arechiga Urea nitrogen [Mass/Vol] 27.0 mg/dL Critically high 7.0-18.0 [facility] Comment on above: Performed By: #### B TIMBER HARVESTER OPERATOR, BMP ####[facility] Z[address]kbfwmjs[address] [place], [place] [address]Dr. Sruthi Arechiga Urea nitrogen/Creatinine [Mass ratio] 31.4 mg/mg Normal [facility] Comment on above: Performed By: #### B TIMBER HARVESTER OPERATOR, BMP ####[facility] Tu[address]hbodhm[address] [place] [address]DrIndu Arechiga CBC AUTO DIFFon 07-06-2022 BASO # 0.0 103/ul Normal 0.0-0.1 [facility] Comment on above: Performed By: #### C VDTB #### [facility] [address] [address] [address] Sruthi Arechiga Basophils/100 WBC (Bld) 0.4 % Normal 0.2-2.0 [facility] Comment on above: Performed By: #### C VDTBH #### [facility] [address] [place] [address] Dr. Sruthi Arechiga EO # 0.2 103/ul Normal 0.0-0.7 [facility] Comment on above: Performed By: #### C VDTBH #### [facility] [address] [place] [address] Dr. Srtuhi Arechiga Eosinophils/100 WBC (Bld) 2.4 % Normal 0.9-7.0 [facility] Comment on above: Performed By: #### C VDTBH #### [facility] [address] [place] [address] Dr. Sruthi Arechiga Erythrocyte distribution width (RBC) [Ratio] 13.3 % Normal 11.0-15.0 [facility] Comment on above: Performed By: #### C VDTBH #### [facility] [address] [place] [address] Dr. Sruthi Arechiga Hematocrit (Bld) [Volume fraction] 32.0 % Critically low 36.0-48.0 [facility] Comment on above: Performed By: #### C VDTBH #### [facility] [address] [place] [address] Dr. Sruthi Arechiga Hemoglobin (Bld) [Mass/Vol] 10.0 g/dL Critically low 12.0-16.0 [facility] Comment on above: Performed By: #### C VDTBH #### [facility] [address] [place] [address] Dr. Sruthi Arechiga IG # 0.05 10e3/ul Critically high 0.00-0.03 [facility] Comment on above: Performed By: #### C VDTBH #### [facility] [address] [place] [address] Dr. Sruthi Arechiga IG % 0.5 % Normal 0.0-0.5 [facility] Comment on above: Performed By: #### C VDTBH #### [facility] [address] [address] [address] Sruthi Arechiga LYMPH # 2.4 103/ul Normal 1.2-3.8 [facility] Comment on above: Performed By: #### C VDTBH #### [facility] [address] [place] [address] Dr. Sruthi Arechiga Lymphocytes/100 WBC (Bld) 24.5 % Normal 20.5-60.0 [facility] Comment on above: Performed By: #### C VDTBH #### [facility] [address] [place] [address] Dr. Sruthi Arechiga MANUAL DIFF REQ NO Normal [facility] Comment on above: Performed By: #### C VDTBH #### [facility] [address] [place] [address] Dr. Sruthi Arechiga MCH (RBC) [Entitic mass] 26.5 pg Critically low 26.7-34.0 [facility] Comment on above: Performed By: #### C VDTBH #### [facility] [address] [place] [address] Dr. Sruthi Arechiga MCHC (RBC) [Mass/Vol] 31.3 g/dL Normal 29.9-35.2 [facility] Comment on above: Performed By: #### C VDTBH #### [facility] [address] [place] [address] Dr. Sruthi Arechiga MCV (RBC) [Entitic vol] 84.9 fL Normal 81.0-99.0 [facility] Comment on above: Performed By: #### C VDTBH #### [facility] [address] [place] [address] Dr. Sruthi Arechiga MONO # 1.1 103/ul Critically high 0.3-0.8 [facility] Comment on above: Performed By: #### C VDTBH #### [facility] [address] [place] [address] Dr. Sruthi Arechiga Monocytes/100 WBC (Bld) 11.7 % Normal 1.7-12.0 [facility] Comment on above: Performed By: #### C VDTBH #### [facility] [address] [address] [address] Sruthi Arechiga NEUT # 5.8 103/ul Normal 1.4-6.5 [facility] Comment on above: Performed By: #### C VDTBH #### [facility] [address] [address] [address] Sruthi Arechiga Neutrophils/100 WBC (Bld) 60.5 % Normal 43.0-75.0 [facility] Comment on above: Performed By: #### C VDTBH #### [facility] [address] [place] [address] Dr. Sruthi Arechiga Platelet mean volume (Bld) [Entitic vol] 11.8 fL Normal 9.5-13.5 [facility] Comment on above: Performed By: #### C VDTBH #### [facility] [address] [place] [address] Dr. Sruthi Arechiga PLT 198 103/ul Normal 150-450 [facility] Comment on above: Performed By: #### C VDTBH #### [facility] [address] [place] [address] Dr. Sruthi Arechiga RBC 3.77 106/ul Critically low 4.20-5.[address] [facility] Comment on above: Performed By: #### C VDTBH #### [facility] [address] [place] [address] Dr. Sruthi Arechiga WBC 9.7 103/ul Normal 4.0-11.0 [facility] Comment on above: Performed By: #### C VDTBH #### [facility] [address] [place] [address] Dr. Sruthi Arechiga CULTURE URINEon 07-06-2022 CULTURE [...] F Trimethoprim/Sulfameth oxazole <=20 S F Normal [facility] Comment on above: Performed By: #### U RCX ####[facility] [address] [place] [address]Dr. Sruthi Arechiga IRON AND TIBCon 07-06-2022 % SATURATION 9.3 % Normal [facility] Comment on above: Performed By: #### F ETIBC, B12FOL ####[facility] [address]ftvqr[address] [place] [address]Dr. Sruthi Arechiga Iron [Mass/Vol] 33.0 ug/dL Critically low 50.0-170.0 [facility] Comment on above: Performed By: #### F ETIBC, B12FOL ####[facility] [address]af[address] [place] [address]Dr. Sruthi Arechiga TIBC DIRECT 356.0 ug/dL Normal 250.0-450.0 [facility] Comment on above: Performed By: #### F ETIBC, B12FOL ####[facility] [address]jtojor[address] [place] [address]Dr. Sruthi Arechiga OCC BLD IMMUNO SCREENon 06-11 OCCULT BLOOD Negative Normal NEGATIVE [facility] Comment on above: Performed By: #### O BSCRN #### [facility] [address] [address] [address] Sruthi Arechiga POINT OF CARE GLUCOSEon 06-11 Glucose [Mass/Vol] 203 mg/dL Critically high 74-106 [facility] Comment on above: Performed By: #### C BC #### [facility] [address] [address] [address] Sruthi Arechiga Glucose [Mass/Vol] 299 mg/dL Critically high 74-106 [facility] Comment on above: Performed By: #### C VDTBH #### [facility] [address] [place] [address] Dr. Sruthi Arechiga Glucose [Mass/Vol] 412 mg/dL Critically high 74-106 T [facility] Comment on above: Performed By: #### C BC #### [facility] [address] [address] [address] Sruthi Arechiga PROF CHEM 8 (BAS METB)on Anion gap [Moles/Vol] 11.0 mmol/L Normal [facility] Comment on above: Performed By: #### B MP ####[facility] [address]cwwp[address] [place] [address]Dr. Sruthi Arechiga Calcium [Mass/Vol] 9.0 mg/dL Normal 8.5-10.1 [facility] Comment on above: Performed By: #### B MP ####[facility] [address] [place] [address]Dr. Sruthi Arechiga Chloride [Moles/Vol] 100 mmol/L Normal 98-107 [facility] Comment on above: Performed By: #### B MP ####[facility] [address]wawn[address] [place] [address]DrIndu Arechiga CO2 [Moles/Vol] 28.5 mmol/L Normal 21.0-32.0 [facility] Comment on above: Performed By: #### B MP ####[facility] [address] [place] [address]Dr. Sruthi Arechiga Creatinine [Mass/Vol] 0.98 mg/dL Normal 0.55-1.02 [facility] Comment on above: Performed By: #### B MP ####[facility] [address]jc[address] [place] [phone]. Sruthi Arechiga EGFR-AF [place] >60 Normal >=60 [facility] Comment on above: Performed By: #### B MP ####[facility] [address]jradi[address] [place] [phone]. Sruthi Arechiga EGFR-NON AF [place] 56 mL/min/1.73m2 Critically low >=60 [facility] Comment on above: Performed By: #### B MP ####[facility] [address]cyr[address] [place] [address]Dr. Sruthi Arechiga Glucose [Mass/Vol] 139 mg/dL Critically high 74-106 T [facility] Comment on above: Performed By: #### B MP ####[facility] [address]fpm[address] [place] [address]Dr. Sruthi Arechiga Potassium [Moles/Vol] 4.5 mmol/L Normal 3.5-5.1 [facility] Comment on above: Performed By: #### B MP ####[facility] Phzg[address]qrhi[address] [place], [place] [address]Dr. Sruthi Arechiga Sodium [Moles/Vol] 135 mmol/L Critically low 136-145 Th [facility] Comment on above: Performed By: #### B MP ####[facility] E[address]fi[address] [place], [place] [address]Dr. Sruthi Arechiga Urea nitrogen [Mass/Vol] 25.0 mg/dL Critically high 7.0-18.0 [facility] Comment on above: Performed By: #### B MP ####[facility] [address]xexaj[address] [place], [place] [address]Dr. Sruthi Arechiga Urea nitrogen/Creatinine [Mass ratio] 25.5 mg/mg Normal [facility] Comment on above: Performed By: #### B MP ####[facility] Djyonjqyrs[address] [place], [place] [address]Dr. Sruthi Arechiga VIT B12 AND FOLATEon 022 Cobalamin (Vitamin B12) [Mass/Vol] 653.0 pg/mL Normal 193.0-986.0 [facility] Comment on above: Performed By: #### F ETIBC, B12FOL ####[facility] [address]lrkbvv[address] [place] [address]Dr. Sruthi Arechiga FOLATE 17.90 ng/mL Normal 8.60-58.90 [facility] Comment on above: Performed By: #### F ETIBC, B12FOL ####[facility] Ifmhajltfe[address] [place], [place] [address]Dr. Kamalasven Arechiga XR CHEST 2 Von 07-06-2022 XR [...] GORDON VALENZUELA Date: 2022-07-06 08:43 Normal [facility] CBC AUTO DIFFon 07-05-2022 BASO # 0.0 103/ul Normal 0.0-0.1 [facility] Comment on above: Performed By: #### C BC ####[facility] L[address]nsu[address] [place], [place] [address]Dr. Sruthi Arechiga Basophils/100 WBC (Bld) 0.4 % Normal 0.2-2.0 [facility] Comment on above: Performed By: #### C BC ####[facility] Anmkvsraxy[address] [place], [place] [address]Dr. Sruthi Arechiga EO # 0.2 103/ul Normal 0.0-0.7 [facility] Comment on above: Performed By: #### C BC ####[facility] [address]xwpbaxvg[address] [place], [place] [address]Dr. Sruthi Arechiga Eosinophils/100 WBC (Bld) 2.6 % Normal 0.9-7.0 [facility] Comment on above: Performed By: #### C BC ####[facility] Cyhhcjjepo[address] [place], [place] [address]Dr. Sruthi Arechiga Erythrocyte distribution width (RBC) [Ratio] 13.3 % Normal 11.0-15.0 [facility] Comment on above: Performed By: #### C BC ####[facility] Dazsweiuda803231 [address] [place], [place] [address]Dr. Sruthi Arechiga Hematocrit (Bld) [Volume fraction] 31.3 % Critically low 36.0-48.0 [facility] Comment on above: Performed By: #### C BC ####[facility] [address] [place] [id number]. Sruthi Arechiga Hemoglobin (Bld) [Mass/Vol] 9.9 g/dL Critically low 12.0-16.0 [facility] Comment on above: Performed By: #### C BC ####[facility] [address] [place] [id number]. Sruthi Arechiga IG # 0.07 10e3/ul Critically high 0.00-0.03 [facility] Comment on above: Performed By: #### C BC ####[facility] [address]ibpmpyscj[address] [place] [phone]. Sruthi Arechiga IG % 0.8 % Critically high 0.0-0.5 [facility] Comment on above: Performed By: #### C BC ####[facility] Em[address]ubowr[address] [place] [address]Dr. Sruthi Hawk LYMPH # 2.1 103/ul Normal 1.2-3.8 [facility] Comment on above: Performed By: #### C BC ####[facility] [address]ch[address] [place] [address]Dr. Sruthi Arechiga Lymphocytes/100 WBC (Bld) 22.5 % Normal 20.5-60.0 [facility] Comment on above: Performed By: #### C BC ####[facility] [address]ke[address] [place] [address]Dr. Sruthi Arechiga MANUAL DIFF REQ NO Normal [facility] Comment on above: Performed By: #### C BC ####[facility] [address]li[address] [place] [address]Dr. Sruthi Arechiga MCH (RBC) [Entitic mass] 27.0 pg Normal 26.7-34.0 [facility] Comment on above: Performed By: #### C BC ####[facility] [address] [place], [place] [address]Dr. Sruthi Arechiga MCHC (RBC) [Mass/Vol] 31.6 g/dL Normal 29.9-35.2 [facility] Comment on above: Performed By: #### C BC ####[facility] Z[address]aj[address]tygp[address] [place] [phone]. Sruthi Arechiga MCV (RBC) [Entitic vol] 85.3 fL Normal 81.0-99.0 [facility] Comment on above: Performed By: #### C BC ####[facility] [address]hxj[address]sh[address] [place] [phone]. Sruthi Arechiga MONO # 1.2 103/ul Critically high 0.3-0.8 [facility] Comment on above: Performed By: #### C BC ####[facility] [address]nb[address] [place] [phone]. Sruthi Arechiga Monocytes/100 WBC (Bld) 12.9 % Critically high 1.7-12.0 [facility] Comment on above: Performed By: #### C BC ####[facility] C[address] [place], [place] [address]Dr. Sruthi Arechiga NEUT # 5.7 103/ul Normal 1.4-6.5 [facility] Comment on above: Performed By: #### C BC ####[facility] [address]fr[address] [place], [place] [address]Dr. Sruthi Arechiga Neutrophils/100 WBC (Bld) 60.8 % Normal 43.0-75.0 [facility] Comment on above: Performed By: #### C BC ####[facility] [address] [place], [place] [address]Dr. Sruthi Arechiga Platelet mean volume (Bld) [Entitic vol] 11.2 fL Normal 9.5-13.5 [facility] Comment on above: Performed By: #### C BC ####[facility] [address]dwmtewfp[address] [place] [phone]. Sruthi Arechiga PLT 213 103/ul Normal 150-450 [facility] Comment on above: Performed By: #### C BC ####[facility] [address] [place], [place] [address]Dr. Sruthi Arechiga RBC 3.67 106/ul Critically low 4.20-5.40 [facility] Comment on above: Performed By: #### C BC ####[facility] [address]xy[address] [place] [address]DrIndu Arechiga WBC 9.3 103/ul Normal 4.0-11.0 [facility] Comment on above: Performed By: #### C BC ####[facility] [address]vqt[address] [place] [address]Dr. Sruthi Arechiga POINT OF CARE GLUCOSEon 06-11 Glucose [Mass/Vol] 164 mg/dL Critically high -106 [facility] Comment on above: Performed By: #### C VDTBH #### [facility] Laboratory [address] [place] [address] [address] Sruthi Arechiga Glucose [Mass/Vol] 303 mg/dL Critically high [address] [place] [address] Comment on above: Performed By: #### P OCGLUC #### [facility] Laboratory [address] [address] [address] Sruthi Arechiga Glucose [Mass/Vol] 278 mg/dL Critically high [address] [place] [address] Comment on above: Performed By: #### C VDTBH #### [facility] Laboratory [address] [address] [address] Sruthi Arechiga PROF CHEM 8 (BAS METB)on Anion gap [Moles/Vol] 9.9 mmol/L Normal [facility] Comment on above: Performed By: #### B MP ####[facility] [address]lky[address] [place] [address]DrIndu Arechiga Calcium [Mass/Vol] 8.7 mg/dL Normal 8.5-10.1 [facility] Comment on above: Performed By: #### B MP ####[facility] Pbuvjqdhjg[address] [place] [address]DrIndu Arechiga Chloride [Moles/Vol] 100 mmol/L Normal 98-107 [facility] Comment on above: Performed By: #### B MP ####[facility] [address]akosil[address] [place] [address]DrIndu Arechiga CO2 [Moles/Vol] 28.4 mmol/L Normal 21.0-32.0 [facility] Comment on above: Performed By: #### B MP ####[facility] [address]xmaoxcuqg[address] [place] [phone]. Sruthi Arechiga Creatinine [Mass/Vol] 0.99 mg/dL Normal 0.55-1.02 [facility] Comment on above: Performed By: #### B MP ####[facility] Aiv[address]nysm[address] [place] [phone]. Sruthi Hawk EGFR-AF [place] >60 Normal >=60 [facility] Comment on above: Performed By: #### B MP ####[facility] Ozhoobljhm[address] [place] [phone]. Sruthi Hawk EGFR-NON AF [place] 56 mL/min/1.73m2 Critically low >=60 [facility] Comment on above: Performed By: #### B MP ####[facility] V[address] [place], [place] [address]Dr. Sruthi Arechiga Glucose [Mass/Vol] 174 mg/dL Critically high 74-106 T [facility] Comment on above: Performed By: #### B MP ####[facility] [address]znwm[address] [place] [address]Dr. Sruthi Arechiga Potassium [Moles/Vol] 4.3 mmol/L Normal 3.5-5.1 [facility] Comment on above: Performed By: #### B MP ####[facility] [address]yn[address] [place], [place] [address]Dr. Sruthi Arechiga Sodium [Moles/Vol] 134 mmol/L Critically low 136-145 Th [facility] Comment on above: Performed By: #### B MP ####[facility] [address]qiyt[address] [place] [phone]. Sruthi Arechiga Urea nitrogen [Mass/Vol] 22.0 mg/dL Critically high 7.0-18.0 [facility] Comment on above: Performed By: #### B MP ####[facility] [address] [place], [place] [address]Dr. Sruthi Arechiga Urea nitrogen/Creatinine [Mass ratio] 22.2 mg/mg Normal [facility] Comment on above: Performed By: #### B MP ####[facility] [address]lg[address]ma[address] [place], [place] [address]IuDr. Sruthi Arechiga BNPon 07-04-2022 Natriuretic peptide B (Bld) [Mass/Vol] 1822.0 pg/mL Critically high <=900.0 [facility] Comment on above: Performed By: #### C BC #### [facility] Laboratory [address] [address] [address] Sruthi Arechiga CBC AUTO DIFFon 07-04-2022 BASO # 0.0 103/ul Normal 0.0-0.1 [facility] Comment on above: Performed By: #### C BC #### [facility] Laboratory [address] [address] [address] Sruthi Arechiga Basophils/100 WBC (Bld) 0.4 % Normal 0.2-2.0 [facility] Comment on above: Performed By: #### C BC #### [facility] Laboratory [address] [place] [address] Dr. Sruthi Arechiga EO # 0.2 103/ul Normal 0.0-0.7 [facility] Comment on above: Performed By: #### C BC #### [facility] Laboratory [address] [address] [address] Sruthi Arechiga Eosinophils/100 WBC (Bld) 2.4 % Normal 0.9-7.0 [facility] Comment on above: Performed By: #### C BC #### [facility] Laboratory [address] [place] [address] Dr. Sruthi Arechiga Erythrocyte distribution width (RBC) [Ratio] 13.5 % Normal 11.0-15.0 [facility] Comment on above: Performed By: #### C BC #### [facility] Laboratory [address] [place] [address] Dr. Sruthi Arechiga Hematocrit (Bld) [Volume fraction] 36.4 % Normal 36.0-48.0 [facility] Comment on above: Performed By: #### C BC #### [facility] Laboratory [address] [address] [address] Sruthi Arechiga Hemoglobin (Bld) [Mass/Vol] 11.6 g/dL Critically low 12.0-16.0 [facility] Comment on above: Performed By: #### C BC #### [facility] Laboratory [address] [place] [address] Dr. Sruthi Arechiga IG # 0.11 10e3/ul Critically high 0.00-0.03 [facility] Comment on above: Performed By: #### C BC #### [facility] Laboratory [address] [place] [address] Dr. Sruthi Arechiga IG % 1.2 % Critically high 0.0-0.[address] [facility] Comment on above: Performed By: #### C BC #### [facility] Laboratory [address] [place] [address] Dr. Sruthi Arechiga LYMPH # 1.7 103/ul Normal 1.2-3.8 [facility] Comment on above: Performed By: #### C BC #### [facility] Laboratory [address] [place] [address] Dr. Sruthi Arechiga Lymphocytes/100 WBC (Bld) 19.0 % Critically low 20.5-60.0 [facility] Comment on above: Performed By: #### C BC #### [facility] Laboratory [address] [place] [address] Dr. Sruthi Aerchiga MANUAL DIFF REQ NO Normal [facility] Comment on above: Performed By: #### C BC #### [facility] Laboratory [address] [place] [address] Dr. Sruthi Arechiga MCH (RBC) [Entitic mass] 27.3 pg Normal 26.7-34.0 [facility] Comment on above: Performed By: #### C BC #### [facility] Laboratory [address] [place] [address] Dr. Sruthi Arechiga MCHC (RBC) [Mass/Vol] 31.9 g/dL Normal 29.9-35.2 [facility] Comment on above: Performed By: #### C BC #### [facility] Laboratory [address] [place] [address] Dr. Sruthi Arechiga MCV (RBC) [Entitic vol] 85.6 fL Normal 81.0-99.0 [facility] Comment on above: Performed By: #### C BC #### [facility] Laboratory [address] [address] [address] Sruthi Arechiga MONO # 1.1 103/ul Critically high 0.3-0.[address] [facility] Comment on above: Performed By: #### C BC #### [facility] Laboratory [address] [address] [address] Sruthi Arechiga Monocytes/100 WBC (Bld) 11.9 % Normal 1.7-12.0 [facility] Comment on above: Performed By: #### C BC #### [facility] Laboratory [address] [address] [address] Sruthi Arechiga NEUT # 6.0 103/ul Normal 1.4-6.5 [facility] Comment on above: Performed By: #### C BC #### [facility] Laboratory [address] [place] [address] Dr. Sruthi Arechiga Neutrophils/100 WBC (Bld) 65.1 % Normal 43.0-75.0 [facility] Comment on above: Performed By: #### C BC #### [facility] Laboratory [address] [address] [address] Sruthi Arechiga Platelet mean volume (Bld) [Entitic vol] 10.7 fL Normal 9.5-13.5 [facility] Comment on above: Performed By: #### C BC #### [facility] Laboratory [address] [address] [address] Sruthi Arechiga PLT 264 103/ul Normal 150-450 [facility] Comment on above: Performed By: #### C BC #### [facility] Laboratory [address] [address] [address] Sruthi Arechiga RBC 4.25 106/ul Normal 4.20-5.40 [facility] Comment on above: Performed By: #### C BC #### [facility] Laboratory [address] [place] [address] Dr. Sruthi Arechiga WBC 9.2 103/ul Normal 4.0-11.0 [facility] Comment on above: Performed By: #### C BC #### [facility] Laboratory [address] [address] [address] Sruthi Arechiga Covid-19 PCR ([facility])on 06-11 SARS-CoV-2 (COVID-19) RNA KOLE+probe Ql (Unsp spec) Not detected Normal NOT DETECTED [facility] Comment on above: Result Comment: When diagnostic [...] for this test is supported by the [place] of [employer] and [employer] Service's declaration that [...] be used). Performed By: #### C VDTB ####[facility] [address] [place] [address]Dr. Sruthi Arechiga ER URINE PROFILEon Bilirubin Ql (U) Negative Normal NEGATIVE [facility] Comment on above: Performed By: #### C VDTBH #### [facility] Laboratory [address] [place] [address] Dr. Sruthi Arechiga Clarity (U) CLEAR Normal CLEAR [facility] Comment on above: Performed By: #### C VDTBH #### [facility] Laboratory [address] [place] [address] Dr. Sruthi Arechiga Color (U) LT. YELLOW Normal YELLOW [facility] Comment on above: Performed By: #### C VDTBH #### [facility] Laboratory [address] [place] [address] Dr. Sruthi Arechiga ERUAHD A micrscopic examination will be performed if indicated. Normal [facility] Comment on above: Performed By: #### C VDTBH #### [facility] Laboratory [address] [place] [address] Dr. Sruthi Arechiga Glucose Ql (U) >[address] [facility] Comment on above: Performed By: #### C VDTBH #### [facility] Laboratory [address] [place] [address] Dr. Sruthi Arechiga Hemoglobin Ql (U) Negative Normal NEGATIVE [facility] Comment on above: Performed By: #### C VDTBH #### [facility] Laboratory [address] [place] [address] Dr. Sruthi Arechiga Ketones Ql (U) Negative Normal NEGATIVE [facility] Comment on above: Performed By: #### C VDTBH #### [facility] Laboratory [address] [place] [address] Dr. Sruthi Arechiga LEUKOCYTES SMALL Abnormal NEGATIVE [facility] Comment on above: Performed By: #### C VDTBH #### [facility] Laboratory [address] [place] [address] Dr. Sruthi Arechiga Nitrite Ql (U) Negative Normal NEGATIVE [facility] Comment on above: Performed By: #### C VDTBH #### [facility] Laboratory [address] [place] [address] Dr. Sruthi Arechiga pH (U) 6.0 [pH] Normal 5-9 [facility] Comment on above: Performed By: #### C VDTBH #### [facility] Laboratory [address] [place] [address] Dr. Sruthi Arechiga SPEC GRAVITY <=1.005 Abnormal 1.005-<=1.02 5 [facility] Comment on above: Performed By: #### C VDTBH #### [facility] Laboratory [address] [place] [address] Dr. Sruthi Arechiga UA PROTEIN Negative Normal NEGATIVE/ TRACE [facility] Comment on above: Performed By: #### C VDTBH #### [facility] Laboratory [address] [place] [address] Dr. Sruthi Arechiga UR MICRO IND INDICATED Normal [facility] Comment on above: Performed By: #### C VDTBH #### [facility] Laboratory [address] [address] [address] Sruthi Arechiga Urobilinogen Qn (U) 0.2 {Willow'U}/dL Normal 0.2 - 1. 0 [facility] Comment on above: Performed By: #### C VDTBH #### [facility] Laboratory [address] [address] [address] Sruthi Arechiga POINT OF CARE GLUCOSEon 06-11 Glucose [Mass/Vol] 262 mg/dL Critically high 74-106 [facility] Comment on above: Performed By: #### P OCGLUC ####[facility] [address] [place] [address]Dr. Sruthi Arechiga PROF CHEM 8 (BAS METB)on Anion gap [Moles/Vol] 13.0 mmol/L Normal [facility] Comment on above: Performed By: #### C BC #### [facility] Laboratory [address] [address] [address] Srutih Arechiga Calcium [Mass/Vol] 9.3 mg/dL Normal 8.5-10.1 [facility] Comment on above: Performed By: #### C BC #### [facility] Laboratory [address] [address] [address] Sruthi Arechiga Chloride [Moles/Vol] 99 mmol/L Normal 98-107 [facility] Comment on above: Performed By: #### C BC #### [facility] Laboratory [address] [address] [address] Sruthi Arechiga CO2 [Moles/Vol] 26.3 mmol/L Normal 21.0-32.0 [facility] Comment on above: Performed By: #### C BC #### [facility] Laboratory [address] [place] [address] Dr. Sruthi Arechiga Creatinine [Mass/Vol] 0.95 mg/dL Normal 0.55-1.02 [facility] Comment on above: Performed By: #### C BC #### [facility] Laboratory [address] [address] [address] Sruthi Arechiga EGFR-AF [place] >60 Normal >=60 [facility] Comment on above: Performed By: #### C BC #### [facility] Laboratory [address] [address] [address] Sruthi Arechiga EGFR-NON AF [place] 58 mL/min/1.73m2 Critically low >=60 [facility] Comment on above: Performed By: #### C BC #### [facility] Laboratory [address] [address] [address] Sruthi Arechiga Glucose [Mass/Vol] 331 mg/dL Critically high 74-106 T [facility] Comment on above: Performed By: #### C BC #### [facility] Laboratory [address] [address] [address] Sruthi Arechiga Potassium [Moles/Vol] 4.3 mmol/L Normal 3.5-5.1 [facility] Comment on above: Performed By: #### C BC #### [facility] Laboratory [address] [address] [address] Sruthi Arechiga Sodium [Moles/Vol] 134 mmol/L Critically low 136-145 Th [facility] Comment on above: Performed By: #### C BC #### [facility] Laboratory [address] [address] [address] Sruthi Arechiga Urea nitrogen [Mass/Vol] 20.0 mg/dL Critically high 7.0-18.0 [facility] Comment on above: Performed By: #### C BC #### [facility] Laboratory [address] [address] [address] Sruthi Arechiga Urea nitrogen/Creatinine [Mass ratio] 21.1 mg/mg Normal [facility] Comment on above: Performed By: #### C BC #### [facility] Laboratory [address] [address] [address] Sruthi Arechiga TROPONIN, HIGH SENSITIVITYon 07-04-2022 HSTROP 113.1 pg/mL Critically high 4.0-51.3 [facility] Comment on above: Result Comment: CUT- OFF POINTS HAVE BEEN ESTABLISHED BASED ON THE FOURTH UNIVERSAL DEFINITIONS OF MYOCARDIAL INFARCTION. THE UPPER REFERENCE LIMIT (URL) OF TROPONIN, DEFINED THE 99TH PERCENTILE OF cTnI DISTRIBUTION IN A REFERENCE POPULATION, HAS BEEN CONFIRMED THE DECISION THRESHOLD FOR SD DIAGNOSIS. Performed By: #### C BC #### [facility] Laboratory [address] [place] [address] Dr. Sruthi Arechiga HSTROP 126.6 pg/mL Critically high 4.0-51.3 [facility] Comment on above: Result Comment: CUT- OFF POINTS HAVE BEEN ESTABLISHED BASED ON THE FOURTH UNIVERSAL DEFINITIONS OF MYOCARDIAL INFARCTION. THE UPPER REFERENCE LIMIT (URL) OF TROPONIN, DEFINED THE 99TH PERCENTILE OF cTnI DISTRIBUTION IN A REFERENCE POPULATION, HAS BEEN CONFIRMED THE DECISION THRESHOLD FOR SD DIAGNOSIS. Performed By: #### C VDTBH #### [facility] Laboratory [address] [place] [address] Dr. Sruthi Arechiga URINE MICROSCOPIC ONLYon BACTERIA LARGE Abnormal NONE SEEN [facility] Comment on above: Performed By: #### C VDTBH #### [facility] Laboratory [address] [place] [address] Dr. Sruthi Arechiga Bacteria identified Cx Nom (U) INDICATED Normal [facility] Comment on above: Performed By: #### C VDTBH #### [facility] Laboratory [address] [place] [address] Dr. Sruthi Arechiga CAST NONE SEEN Normal NONE SEEN [facility] Comment on above: Performed By: #### C VDTBH #### [facility] Laboratory [address] [place] [address] Dr. Sruthi Arechiga Crystals LM Nom (Urine sed) NONE SEEN Normal NONE SEEN [facility] Comment on above: Performed By: #### C VDTBH #### [facility] Laboratory [address] [place] [address] Dr. Sruthi Arechiga Epithelial cells LM Ql (Urine sed) FEW Abnormal NONE SEEN /RARE [facility] Comment on above: Performed By: #### C VDTBH #### [facility] Laboratory [address] [place] [address] Dr. Sruthi Arechiga MUCOUS NONE SEEN Normal NONE SEEN [facility] Comment on above: Performed By: #### C VDTBH #### [facility] Laboratory [address] [place] [address] Dr. Sruthi Arechiga RBC NONE SEEN Abnormal 0-2 [facility] Comment on above: Performed By: #### C VDTBH #### [facility] Laboratory [address] [place], [place] [address] Dr. Sruthi Arechiga WBC 10-20 Abnormal NONE SEEN [facility] Comment on above: Performed By: #### C VDTBH #### [facility] Laboratory [address] [place], [place] [address] Dr. Sruthi Arechiga XR CHEST 1 Von [...] [place]Y Date: 2022-07-04 11:53 Normal [facility] CBC COMPLETE BLOOD COUNTon 0 07-03-2022 Erythrocyte distribution width (RBC) [Ratio] 13.4 % Normal 11.5-15.0 [facility] Comment on above: Order Comment: No: D o not add to previous draw Performed By: #### 8 [id number] #### [facility] [address] Hematocrit (Bld) [Volume fraction] 33.6 % Low 36.0-45.0 [facility] Comment on above: Order Comment: No: D o not add to previous draw Performed By: #### 8 [id number] #### [facility] [address] [place] [address], [facility] Hemoglobin (Bld) [Mass/Vol] 10.6 g/dL Low 12.0-15.0 [facility] Comment on above: Order Comment: No: D o not add to previous draw Performed By: #### 8 [id number] #### [facility] [address] [place] [address], [facility] MCH (RBC) [Entitic mass] 26.6 pg Low 27.0-33.0 [facility] Comment on above: Order Comment: No: D o not add to previous draw Performed By: #### 8 [id number] #### [facility] [address] [place] [id number], [facility] MCHC (RBC) [Mass/Vol] 31.5 g/dL Low 32.0-35.0 [facility] Comment on above: Order Comment: No: D o not add to previous draw Performed By: #### 8 [id number] #### [facility] [address] [place] [address], [facility] MCV (RBC) [Entitic vol] 84.4 fL Normal 82.0-98.0 [facility] Comment on above: Order Comment: No: D o not add to previous draw Performed By: #### 8 [id number] #### [facility] [address] [facility] [place] [address], [facility] Nucleated RBC/100 WBC (Bld) [Ratio] 0 % Normal 0-0 [facility] Comment on above: Order Comment: No: D o not add to previous draw Performed By: #### 8 [id number] #### [facility] [address] [facility] [place] [id number], [facility] PLAT CNT 247 10*3/uL Normal 150-400 [facility] Comment on above: Order Comment: No: D o not add to previous draw Performed By: #### 8 [id number] #### [facility] [address] [facility] [place] [address], [facility] RBC (Bld) [#/Vol] 3.98 10*6/uL Normal 3.80-5.00 [facility] Comment on above: Order Comment: No: D o not add to previous draw Performed By: #### 8 [id number] #### [facility] [address] [place] [address], [facility] WBC (Bld) [#/Vol] 10.25 10*3/uL Normal 4.00-10.60 [facility] Comment on above: Order Comment: No: D o not add to previous draw Performed By: #### 8 [id number] #### [facility] 3000 [facility] [address] POC GLUCOSE LABon 07-03-2022 Glucose [Mass/Vol] 204 mg/dL High 70-100 [facility] Comment on above: Performed By: #### 1 0070, 17130, [id number] #### [facility] 3000 [facility] [place] [address], [facility] Glucose [Mass/Vol] 135 mg/dL High 70-100 [facility] Comment on above: Performed By: #### 8 [id number] #### [facility] 3000 [facility]. [address] UFH HEPARIN ASSAYon 07-03-20 22 UNFRACTIONATED HEPARIN <0.10 Critically low 0.30-0.70 [facility] Comment on above: Result Comment: Resu lt checked and called. Accurately read back by Chanda @[id number] Rivaroxaban and Apixaban will interfere with the anti Xa assay used to monitor UFH and LMWH. Performed By: #### 3 1791 #### [facility] 3000 [facility]. [address] BASIC METABOLIC PANELon 06-11 Calcium [Mass/Vol] 8.8 mg/dL Normal 8.6-10.3 [facility] Comment on above: Order Comment: No: D o not add to previous draw Performed By: #### 8 [id number] #### [facility] [address] [facility] [place] [place] [address], [facility] Chloride [Moles/Vol] 104 mmol/L Normal 98-107 [facility] Comment on above: Order Comment: No: D o not add to previous draw Performed By: #### 8 [id number] #### [facility] [address] [place] [address], [facility] CO2 [Moles/Vol] 26 mmol/L Normal 21-31 [facility] Comment on above: Order Comment: No: D o not add to previous draw Performed By: #### 8 [id number] #### [facility] [address] [place] [address], [place] Creatinine [Mass/Vol] 0.62 mg/dL Normal 0.60-1.20 [facility] Comment on above: Order Comment: No: D o not add to previous draw Performed By: #### 8 [id number] #### [facility] [address] [place] [address], [place] GFR/1.73 sq M.predicted among non-blacks MDRD (S/P/Bld) [Vol rate/Area] mL/min/{1.73_m2} Normal >60 [facility] Comment on above: Order Comment: No: D o not add to previous draw Result Comment: [facility]'s estimated glomerular filtration rate (eGFR) will [...] individuals. Performed By: #### 8 [id number] #### [facility] [address] [place] [address], [place] Glucose [Mass/Vol] 212 mg/dL High 70-100 [facility] Comment on above: Order Comment: No: D o not add to previous draw Performed By: #### 8 [id number] #### [facility] [address] [place] [address], [place] Potassium [Moles/Vol] 3.8 mmol/L Normal 3.5-5.1 [facility] Comment on above: Order Comment: No: D o not add to previous draw Performed By: #### 8 [id number] #### [facility] [address] [place] [address], [facility] Sodium [Moles/Vol] 134 mmol/L Low 136-145 [facility] Comment on above: Order Comment: No: D o not add to previous draw Performed By: #### 8 [id number] #### [facility] [address] Urea nitrogen [Mass/Vol] 15 mg/dL Normal 7-25 [facility] Comment on above: Order Comment: No: D o not add to previous draw Performed By: #### 8 [id number] #### [facility] [address] CBC W/DIFFon 07-02-2022 ABS IMM GRANS 0.1 10*3/uL Normal 0.0-0.2 [facility] Comment on above: Order Comment: No: D o not add to previous draw Performed By: #### 8 [id number] #### [facility] 3000 [facility] [place] [address], [facility] ABS NEUTROPHILS 6.3 10*3/uL Normal 1.6-7.6 [facility] Comment on above: Order Comment: No: D o not add to previous draw Performed By: #### 8 [id number] #### [facility] [address] [facility] [place] [address], [facility] Basophils (Bld) [#/Vol] 0.0 10*3/uL Normal 0.0-0.2 [facility] Comment on above: Order Comment: No: D o not add to previous draw Performed By: #### 8 [id number] #### [facility] [address] [place] [address], [facility] Basophils/100 WBC (Bld) 0.3 % Normal 0.0-1.0 [facility] Comment on above: Order Comment: No: D o not add to previous draw Performed By: #### 8 [id number] #### [facility] [address] [place] [address], [facility] Eosinophils (Bld) [#/Vol] 0.2 10*3/uL Normal 0.0-0.5 [facility] Comment on above: Order Comment: No: D o not add to previous draw Performed By: #### 8 [id number] #### [facility] [address] [place] [address], [facility] Eosinophils/100 WBC (Bld) 2.3 % Normal 0.0-6.0 [facility] Comment on above: Order Comment: No: D o not add to previous draw Performed By: #### 8 [id number] #### [facility] 3000 [facility] [address] Erythrocyte distribution width (RBC) [Ratio] 13.5 % Normal 11.5-15.0 [facility] Comment on above: Order Comment: No: D o not add to previous draw Performed By: #### 8 [id number] #### [facility] [address] [facility] [place] [place] [address], [facility] Hematocrit (Bld) [Volume fraction] 31.3 % Low 36.0-45.0 [facility] Comment on above: Order Comment: No: D o not add to previous draw Performed By: #### 8 [id number] #### [facility] [address] [facility] [place] [address], [facility] Hemoglobin (Bld) [Mass/Vol] 10.2 g/dL Low 12.0-15.0 [facility] Comment on above: Order Comment: No: D o not add to previous draw Performed By: #### 8 [id number] #### [facility] [address] [place] [address], [facility] IMMATURE GRANS 0.8 % Normal 0.0-1.0 [facility] Comment on above: Order Comment: No: D o not add to previous draw Performed By: #### 8 [id number] #### [facility] [address] [place] [address], [facility] Lymphocytes (Bld) [#/Vol] 1.9 10*3/uL Normal 1.2-4.0 [facility] Comment on above: Order Comment: No: D o not add to previous draw Performed By: #### 8 [id number] #### [facility] [address] [place] [address], [facility] Lymphocytes/100 WBC (Bld) 19.4 % Low 20.0-45.0 [facility] Comment on above: Order Comment: No: D o not add to previous draw Performed By: #### 8 [id number] #### [facility] [address] [facility] [place] [address], [facility] MCH (RBC) [Entitic mass] 27.5 pg Normal 27.0-33.0 [facility] Comment on above: Order Comment: No: D o not add to previous draw Performed By: #### 8 [id number] #### [facility] [address] [facility] [place] [address], [facility] MCHC (RBC) [Mass/Vol] 32.6 g/dL Normal 32.0-35.0 [facility] Comment on above: Order Comment: No: D o not add to previous draw Performed By: #### 8 [id number] #### [facility] [address] [place] [id number], [facility] MCV (RBC) [Entitic vol] 84.4 fL Normal 82.0-98.0 [facility] Comment on above: Order Comment: No: D o not add to previous draw Performed By: #### 8 [id number] #### [facility] [address] [place] [id number], [facility] Monocytes (Bld) [#/Vol] 1.3 10*3/uL High 0.1-1.0 [facility] Comment on above: Order Comment: No: D o not add to previous draw Performed By: #### 8 [id number] #### [facility] [address] [place] [address], [facility] MONOS 13.1 % High 5.0-12.0 [facility] Comment on above: Order Comment: No: D o not add to previous draw Performed By: #### 8 [id number] #### [facility] [address] [place] [address], [facility] Neutrophils/100 WBC (Bld) 64.1 % Normal 40.0-72.0 [facility] Comment on above: Order Comment: No: D o not add to previous draw Performed By: #### 8 [id number] #### [facility] [address] [place] [address], [facility] Nucleated RBC/100 WBC (Bld) [Ratio] 0 % Normal 0-0 [facility] Comment on above: Order Comment: No: D o not add to previous draw Performed By: #### 8 [id number] #### [facility] [address] [place] [address], [place] PLAT CNT 233 10*3/uL Normal 150-400 [facility] Comment on above: Order Comment: No: D o not add to previous draw Performed By: #### 8 [id number] #### [facility] [address] [place] [address], [facility] RBC (Bld) [#/Vol] 3.71 10*6/uL Low 3.80-5.00 [facility] Comment on above: Order Comment: No: D o not add to previous draw Performed By: #### 8 5499 #### [facility] [address] [place] [address], [place] WBC (Bld) [#/Vol] 9.85 10*3/uL Normal 4.00-10.60 [facility] Comment on above: Order Comment: No: D o not add to previous draw Performed By: #### 8 5499 #### [address] [address], [facility] CTA ABDOMEN AND PELVISon CTA ABDOMEN AND PELVIS [facility] Department of Radiology [address] [place] [id number] ======== Patient Name: MARIMAR PATEL : 1955 Sex: F Age: Race: White Pt. Location: [address] [place] [address] Patient Status: D Ordered Date: 07/02/2022 8:20:00 [...] achievable Electronically signed: Yuni Zhu. Transcribed by: [email or web address], User Resident: Electronically Signed by: YUNI ZHU @ 07/12/2022 01:12 PM Normal [facility] Comment on above: Order Comment: No: D o not add to previous draw No collection time noted on specimen or requisition. The collection time recorded is the time of receipt in the lab. CTA CHESTon 07-02-2022 CTA CHEST [facility] Department of Radiology [address] [place] [id number] ======== Patient Name: MARIMAR PATEL : 1955 Sex: F Age: Race: White Pt. Location: [address] [place] [address] Patient Status: D Ordered Date: 07/02/2022 8:20:00 [...] 3 cusped view, anterior view and no WIRE FENCE ERECTOR-CAU view are obtained in 3-D volume rendered [...] calcification. Electronically signed: Yuni Zhu. Transcribed by: [email or web address], User Resident: Electronically Signed by: YUNI ZHU @ 07/12/2022 01:06 PM Normal [facility] Comment on above: Order Comment: No: D o not add to previous draw No collection time noted on specimen or requisition. The collection time recorded is the time of receipt in the lab. Cardiovascular Lab Reporton 07-02-2022 Cardiovascular Lab Report [facility] Patient Name: Amanda [facility] Josep MR #: [id number] Department of Physician: Alex Kelly M.D. Division of Service Date: 07/01/2022 Cardiology Birthdate: 1955 Adult Cardiovascular Room #: 4AB [id number] [facility] [address] [facility] [place] [address] Cardiovascular Laboratory Report CLINICAL PRESENTATION: The patient [...] ultrasound guidance and micropuncture access technique, a 6-Burkinan sheath was placed in right common femoral [...] exchanges were made over the J-tip guidewire, 6-Burkinan JL4 was used to engage the left main coronary artery. A 6-Burkinan JR4 was used to engage the right coronary artery. A 6-Burkinan JR4 was used to engage the radial bypass graft to the D1 and the SVG to the OM2. The 6-Burkinan JR4 was also used to engage the [...] Betts M.D. Date Trans: 07/02/2022 10:08 A/abdiaziz [id number] cc: Nik Bell M.D. [address] [facility] [address] Normal [facility] MAGNESIUM BLOODon 07-02-2022 Magnesium [Mass/Vol] 1.9 mg/dL Normal 1.9-2.7 [facility] Comment on above: Order Comment: No: D o not add to previous draw Performed By: #### 8 [id number] #### [facility] 3000 [facility] [place] [address], [facility] POC GLUCOSE LABon 07-02-2022 Glucose [Mass/Vol] 268 mg/dL High 70-100 [facility] Comment on above: Performed By: #### 8 [id number] #### [facility] [address] [facility] [place] [address], [place] Glucose [Mass/Vol] 255 mg/dL High 70-100 [facility] Comment on above: Performed By: #### 8 [id number] #### [facility] [address] [place] [address], [place] Glucose [Mass/Vol] 173 mg/dL High 70-100 [facility] Comment on above: Performed By: #### 8 [id number] #### [facility] [address] [facility] [place] [address], [place] Glucose [Mass/Vol] 193 mg/dL High 70-100 [facility] Comment on above: Performed By: #### 1 0070, 31080, 52698 #### [facility] [address] [place] [address], [facility] Glucose [Mass/Vol] 185 mg/dL High 70-100 [facility] Comment on above: Performed By: #### 1 0070, 68994, 70180 #### [facility] [address] [place] [address], [facility] UFH HEPARIN ASSAYon 07-02-20 22 UNFRACTIONATED HEPARIN <0.10 Critically low 0.30-0.70 [facility] Comment on above: Result Comment: RESU LTS CHECKED AND CALLED. ACCURATELY READ BACK BY Jessa Schaefer RN at 2200 PMW 07-02-22. Rivaroxaban and Apixaban will interfere with the anti Xa assay used to monitor UFH and LMWH. Performed By: #### 3 5200 #### [facility] [address] [facility] [place] [address], [facility] BASIC METABOLIC PANELon 06-11 Calcium [Mass/Vol] 8.5 mg/dL Low 8.6-10.3 [facility] Comment on above: Order Comment: No: D o not add to previous draw Performed By: #### 0 0071, 52536 #### [facility] [address] [facility] [place] [address], [facility] Chloride [Moles/Vol] 105 mmol/L Normal 98-107 [facility] Comment on above: Order Comment: No: D o not add to previous draw Performed By: #### 0 0071, 80010 #### [facility] [address] [facility] [place] [id number], [facility] CO2 [Moles/Vol] 22 mmol/L Normal 21-31 [facility] Comment on above: Order Comment: No: D o not add to previous draw Performed By: #### 0 0071, 53815 #### [facility] [address] [facility] [place] [id number], [facility] Creatinine [Mass/Vol] 0.57 mg/dL Low 0.60-1.20 [facility] Comment on above: Order Comment: No: D o not add to previous draw Performed By: #### 0 0071, 59373 #### [facility] [address] [place] [address], [facility] GFR/1.73 sq M.predicted among non-blacks MDRD (S/P/Bld) [Vol rate/Area] mL/min/{1.73_m2} Normal >60 [facility] Comment on above: Order Comment: No: D o not add to previous draw Result Comment: [facility]'s estimated glomerular filtration rate (eGFR) will [...] of individuals. Performed By: #### 0 0071, 89520 #### [facility] [address] [place] [address], [facility] Glucose [Mass/Vol] 164 mg/dL High 70-100 [facility] Comment on above: Order Comment: No: D o not add to previous draw Performed By: #### 0 0071, 68375 #### [facility] [address] [place] [address], [facility] Potassium [Moles/Vol] 3.8 mmol/L Normal 3.5-5.1 [facility] Comment on above: Order Comment: No: D o not add to previous draw Performed By: #### 0 0071, 70142 #### [facility] [address] [place] [address], [place] Sodium [Moles/Vol] 137 mmol/L Normal 136-145 [facility] Comment on above: Order Comment: No: D o not add to previous draw Performed By: #### 0 0071, 29829 #### [facility] [address] Urea nitrogen [Mass/Vol] 18 mg/dL Normal 7-25 [facility] Comment on above: Order Comment: No: D o not add to previous draw Performed By: #### 0 0071, 09670 #### [facility] [address] [place] [address], [facility] CBC W/DIFFon 07-01-2022 ABS IMM GRANS 0.1 10*3/uL Normal 0.0-0.2 [facility] Comment on above: Order Comment: No: D o not add to previous draw Performed By: #### 8 [id number] #### [facility] [address] [place] [address], [facility] ABS NEUTROPHILS 5.1 10*3/uL Normal 1.6-7.6 [facility] Comment on above: Order Comment: No: D o not add to previous draw Performed By: #### 8 [id number] #### [facility] [address] [facility] [place] [address], [facility] Basophils (Bld) [#/Vol] 0.1 10*3/uL Normal 0.0-0.2 [facility] Comment on above: Order Comment: No: D o not add to previous draw Performed By: #### 8 [id number] #### [facility] [address] [facility] [place] [address], [facility] Basophils/100 WBC (Bld) 0.6 % Normal 0.0-1.0 [facility] Comment on above: Order Comment: No: D o not add to previous draw Performed By: #### 8 [id number] #### [facility] [address] [facility] [place] [address], [facility] Eosinophils (Bld) [#/Vol] 0.3 10*3/uL Normal 0.0-0.5 [facility] Comment on above: Order Comment: No: D o not add to previous draw Performed By: #### 8 [id number] #### [facility] [address] [place] [address], [facility] Eosinophils/100 WBC (Bld) 2.8 % Normal 0.0-6.0 [facility] Comment on above: Order Comment: No: D o not add to previous draw Performed By: #### 8 [id number] #### [facility] [address] [place] [address], [facility] Erythrocyte distribution width (RBC) [Ratio] 13.3 % Normal 11.5-15.0 [facility] Comment on above: Order Comment: No: D o not add to previous draw Performed By: #### 8 [id number] #### [facility] [address] [place] [address], [facility] Hematocrit (Bld) [Volume fraction] 32.6 % Low 36.0-45.0 [facility] Comment on above: Order Comment: No: D o not add to previous draw Performed By: #### 8 [id number] #### [facility] [address] [place] [address], [facility] Hemoglobin (Bld) [Mass/Vol] 10.6 g/dL Low 12.0-15.0 [facility] Comment on above: Order Comment: No: D o not add to previous draw Performed By: #### 8 [id number] #### [facility] [address] [place] [address], [facility] IMMATURE GRANS 0.7 % Normal 0.0-1.0 [facility] Comment on above: Order Comment: No: D o not add to previous draw Performed By: #### 8 [id number] #### [facility] [address] [place] [id number], [facility] Lymphocytes (Bld) [#/Vol] 2.4 10*3/uL Normal 1.2-4.0 [facility] Comment on above: Order Comment: No: D o not add to previous draw Performed By: #### 8 [id number] #### [facility] [address] Lymphocytes/100 WBC (Bld) 26.6 % Normal 20.0-45.0 [facility] Comment on above: Order Comment: No: D o not add to previous draw Performed By: #### 8 [id number] #### [facility] [address] [place] [address], [facility] MCH (RBC) [Entitic mass] 27.0 pg Normal 27.0-33.0 [facility] Comment on above: Order Comment: No: D o not add to previous draw Performed By: #### 8 [id number] #### [facility] [address] MCHC (RBC) [Mass/Vol] 32.5 g/dL Normal 32.0-35.0 [facility] Comment on above: Order Comment: No: D o not add to previous draw Performed By: #### 8 [id number] #### [facility] [address] [facility] [place] [place] [address], [facility] MCV (RBC) [Entitic vol] 83.0 fL Normal 82.0-98.0 [facility] Comment on above: Order Comment: No: D o not add to previous draw Performed By: #### 8 [id number] #### [facility] [address] [place] [address], [facility] Monocytes (Bld) [#/Vol] 1.2 10*3/uL High 0.1-1.0 [facility] Comment on above: Order Comment: No: D o not add to previous draw Performed By: #### 8 [id number] #### [facility] [address] [place] [address], [facility] MONOS 13.0 % High 5.0-12.0 [facility] Comment on above: Order Comment: No: D o not add to previous draw Performed By: #### 8 [id number] #### [facility] [address] [place] [address], [facility] Neutrophils/100 WBC (Bld) 56.3 % Normal 40.0-72.0 [facility] Comment on above: Order Comment: No: D o not add to previous draw Performed By: #### 8 [id number] #### [facility] [address] [place] [id number], [facility] Nucleated RBC/100 WBC (Bld) [Ratio] 0 % Normal 0-0 [facility] Comment on above: Order Comment: No: D o not add to previous draw Performed By: #### 8 [id number] #### [facility] [address] [place] [id number], [place] PLAT CNT 247 10*3/uL Normal 150-400 [facility] Comment on above: Order Comment: No: D o not add to previous draw Performed By: #### 8 [id number] #### [facility] [address] [place] [address], [facility] RBC (Bld) [#/Vol] 3.93 10*6/uL Normal 3.80-5.00 [facility] Comment on above: Order Comment: No: D o not add to previous draw Performed By: #### 8 [id number] #### [facility] [address] [place] [id number], [facility] WBC (Bld) [#/Vol] 9.05 10*3/uL Normal 4.00-10.60 [facility] Comment on above: Order Comment: No: D o not add to previous draw Performed By: #### 8 [id number] #### [facility] [address] [place] [address], [facility] MAGNESIUM BLOODon 07-01-2022 Magnesium [Mass/Vol] 1.7 mg/dL Low 1.9-2.7 [facility] Comment on above: Order Comment: No: D o not add to previous draw Performed By: #### 0 0071, [id number] #### [facility] [address] [place] [address], [facility] POC GLUCOSE LABon 07-01-2022 Glucose [Mass/Vol] 253 mg/dL High 70-100 [facility] Comment on above: Performed By: #### 8 [id number] #### [facility] [address] [place] [address], [place] Glucose [Mass/Vol] 160 mg/dL High 70-100 [facility] Comment on above: Performed By: #### 8 [id number] #### [facility] [address] [place] [address], [place] Glucose [Mass/Vol] 174 mg/dL High 70-100 [facility] Comment on above: Performed By: #### 8 [id number] #### [facility] [address] [place] [address], [place] Glucose [Mass/Vol] 185 mg/dL High 70-100 [facility] Comment on above: Performed By: #### 8 [id number] #### [facility] [address] [place] [address], [place] Glucose [Mass/Vol] 176 mg/dL High 70-100 [facility] Comment on above: Performed By: #### 8 [id number] #### [facility] [address] [facility] [place] [address], [facility] UFH HEPARIN ASSAYon 07-01-20 22 UNFRACTIONATED HEPARIN 0.88 IU/mL High 0.30-0.70 [facility] Comment on above: Result Comment: Como roxaban and Apixaban will interfere with the anti Xa assay used to monitor UFH and LMWH. Performed By: #### 3 5200 #### [facility] [address] [place] [address], [facility] BASIC METABOLIC PANELon 06-11 Calcium [Mass/Vol] 8.5 mg/dL Low 8.6-10.3 [facility] Comment on above: Order Comment: No: D o not add to previous draw Performed By: #### 1 0070, 63614, 82009 #### [facility] [address] [place] [address], [facility] Chloride [Moles/Vol] 103 mmol/L Normal 98-107 [facility] Comment on above: Order Comment: No: D o not add to previous draw Performed By: #### 1 0, 25464, 28948 #### [facility] [address] [place] [address], [facility] CO2 [Moles/Vol] 25 mmol/L Normal 21-31 [facility] Comment on above: Order Comment: No: D o not add to previous draw Performed By: #### 1 0, 52560, 79979 #### [facility] [address] [place] [address], [facility] Creatinine [Mass/Vol] 0.50 mg/dL Low 0.60-1.20 [facility] Comment on above: Order Comment: No: D o not add to previous draw Performed By: #### 1 69, 18568, 68420 #### [facility] [address] [place] [address], [facility] GFR/1.73 sq M.predicted among non-blacks MDRD (S/P/Bld) [Vol rate/Area] mL/min/{1.73_m2} Normal >60 [facility] Comment on above: Order Comment: No: D o not add to previous draw Result Comment: [facility]'s estimated glomerular filtration rate (eGFR) will [...] group of individuals. Performed By: #### 1 0, 81141, 12512 #### [facility] [address] [place] [address], [facility] Glucose [Mass/Vol] 166 mg/dL High 70-100 [facility] Comment on above: Order Comment: No: D o not add to previous draw Performed By: #### 1 0, 94412, 50268 #### [facility] [address] [place] [id number], [facility] Potassium [Moles/Vol] 3.3 mmol/L Low 3.5-5.1 [facility] Comment on above: Order Comment: No: D o not add to previous draw Performed By: #### 1 0, 24079, 46548 #### [facility] [address] [facility] [place] [address], [facility] Sodium [Moles/Vol] 138 mmol/L Normal 136-145 [facility] Comment on above: Order Comment: No: D o not add to previous draw Performed By: #### 1 69, 34336, 77657 #### [facility] [address] [facility] [place] [address], [facility] Urea nitrogen [Mass/Vol] 17 mg/dL Normal 7-25 [facility] Comment on above: Order Comment: No: D o not add to previous draw Performed By: #### 1 69, 89670, 67214 #### [facility] [address] [facility] [place] [address], [facility] CBC W/DIFFon 06-30-2022 ABS IMM GRANS 0.1 10*3/uL Normal 0.0-0.2 [facility] Comment on above: Order Comment: No: D o not add to previous draw No collection time noted on specimen or requisition. The collection time recorded is the time of receipt in the lab. Performed By: #### 3 5200 #### [facility] [address] [facility] [place] [address], [facility] ABS NEUTROPHILS 4.4 10*3/uL Normal 1.6-7.6 [facility] Comment on above: Order Comment: No: D o not add to previous draw No collection time noted on specimen or requisition. The collection time recorded is the time of receipt in the lab. Performed By: #### 3 5200 #### [facility] [address] [place] [address], [facility] Basophils (Bld) [#/Vol] 0.1 10*3/uL Normal 0.0-0.2 [facility] Comment on above: Order Comment: No: D o not add to previous draw No collection time noted on specimen or requisition. The collection time recorded is the time of receipt in the lab. Performed By: #### 3 5200 #### [facility] [address] [place] [address], [facility] Basophils/100 WBC (Bld) 0.6 % Normal 0.0-1.0 [facility] Comment on above: Order Comment: No: D o not add to previous draw No collection time noted on specimen or requisition. The collection time recorded is the time of receipt in the lab. Performed By: #### 3 5200 #### [facility] [address] [place] [address], [facility] Eosinophils (Bld) [#/Vol] 0.3 10*3/uL Normal 0.0-0.5 [facility] Comment on above: Order Comment: No: D o not add to previous draw No collection time noted on specimen or requisition. The collection time recorded is the time of receipt in the lab. Performed By: #### 3 5200 #### [facility] [address] [place] [address], [facility] Eosinophils/100 WBC (Bld) 3.3 % Normal 0.0-6.0 [facility] Comment on above: Order Comment: No: D o not add to previous draw No collection time noted on specimen or requisition. The collection time recorded is the time of receipt in the lab. Performed By: #### 3 5200 #### [facility] [address] Erythrocyte distribution width (RBC) [Ratio] 13.2 % Normal 11.5-15.0 [facility] Comment on above: Order Comment: No: D o not add to previous draw No collection time noted on specimen or requisition. The collection time recorded is the time of receipt in the lab. Performed By: #### 3 5200 #### [facility] [address] Hematocrit (Bld) [Volume fraction] 35.3 % Low 36.0-45.0 [facility] Comment on above: Order Comment: No: D o not add to previous draw No collection time noted on specimen or requisition. The collection time recorded is the time of receipt in the lab. Performed By: #### 3 5200 #### [facility] [address] Hemoglobin (Bld) [Mass/Vol] 11.2 g/dL Low 12.0-15.0 [facility] Comment on above: Order Comment: No: D o not add to previous draw No collection time noted on specimen or requisition. The collection time recorded is the time of receipt in the lab. Performed By: #### 3 5200 #### [address] IMMATURE GRANS 0.7 % Normal 0.0-1.0 [facility] Comment on above: Order Comment: No: D o not add to previous draw No collection time noted on specimen or requisition. The collection time recorded is the time of receipt in the lab. Performed By: #### 3 5200 #### [facility] [address] [place] [address], [facility] Lymphocytes (Bld) [#/Vol] 2.3 10*3/uL Normal 1.2-4.0 [facility] Comment on above: Order Comment: No: D o not add to previous draw No collection time noted on specimen or requisition. The collection time recorded is the time of receipt in the lab. Performed By: #### 3 5200 #### [facility] [address] Lymphocytes/100 WBC (Bld) 28.1 % Normal 20.0-45.0 [facility] Comment on above: Order Comment: No: D o not add to previous draw No collection time noted on specimen or requisition. The collection time recorded is the time of receipt in the lab. Performed By: #### 3 5200 #### [facility] [address] [place] [address], [facility] MCH (RBC) [Entitic mass] 26.3 pg Low 27.0-33.0 [facility] Comment on above: Order Comment: No: D o not add to previous draw No collection time noted on specimen or requisition. The collection time recorded is the time of receipt in the lab. Performed By: #### 3 5200 #### [address] MCHC (RBC) [Mass/Vol] 31.7 g/dL Low 32.0-35.0 [facility] Comment on above: Order Comment: No: D o not add to previous draw No collection time noted on specimen or requisition. The collection time recorded is the time of receipt in the lab. Performed By: #### 3 5200 #### [facility] [address] MCV (RBC) [Entitic vol] 82.9 fL Normal 82.0-98.0 [facility] Comment on above: Order Comment: No: D o not add to previous draw No collection time noted on specimen or requisition. The collection time recorded is the time of receipt in the lab. Performed By: #### 3 5200 #### [facility] [address] [place] [address], [facility] Monocytes (Bld) [#/Vol] 1.1 10*3/uL High 0.1-1.0 [facility] Comment on above: Order Comment: No: D o not add to previous draw No collection time noted on specimen or requisition. The collection time recorded is the time of receipt in the lab. Performed By: #### 3 5200 #### [facility] [address] [place] [address], [facility] MONOS 13.3 % High 5.0-12.0 [facility] Comment on above: Order Comment: No: D o not add to previous draw No collection time noted on specimen or requisition. The collection time recorded is the time of receipt in the lab. Performed By: #### 3 5200 #### [facility] [address] Neutrophils/100 WBC (Bld) 54.0 % Normal 40.0-72.0 [facility] Comment on above: Order Comment: No: D o not add to previous draw No collection time noted on specimen or requisition. The collection time recorded is the time of receipt in the lab. Performed By: #### 3 5200 #### [facility] [address] Nucleated RBC/100 WBC (Bld) [Ratio] 0 % Normal 0-0 [facility] Comment on above: Order Comment: No: D o not add to previous draw No collection time noted on specimen or requisition. The collection time recorded is the time of receipt in the lab. Performed By: #### 3 5200 #### [facility] [address] PLAT CNT 256 10*3/uL Normal 150-400 [facility] Comment on above: Order Comment: No: D o not add to previous draw No collection time noted on specimen or requisition. The collection time recorded is the time of receipt in the lab. Performed By: #### 3 5200 #### [facility] [address] RBC (Bld) [#/Vol] 4.26 10*6/uL Normal 3.80-5.00 [facility] Comment on above: Order Comment: No: D o not add to previous draw No collection time noted on specimen or requisition. The collection time recorded is the time of receipt in the lab. Performed By: #### 3 5200 #### [facility] [address] [facility] [place] [address], [facility] WBC (Bld) [#/Vol] 8.18 10*3/uL Normal 4.00-10.60 [facility] Comment on above: Order Comment: No: D o not add to previous draw No collection time noted on specimen or requisition. The collection time recorded is the time of receipt in the lab. Performed By: #### 3 5200 #### [facility] [address] [facility] [place] [address], [facility] MAGNESIUM BLOODon 06-30-2022 Magnesium [Mass/Vol] 1.8 mg/dL Low 1.9-2.7 [facility] Comment on above: Order Comment: No: D o not add to previous draw Performed By: #### 1 0, 40551, 87035 #### [facility] [address] [facility] [place] [address], [facility] POC GLUCOSE LABon 06-30-2022 Glucose [Mass/Vol] 266 mg/dL High 70-100 [facility] Comment on above: Performed By: #### 8 [id number] #### [facility] [address] [facility] [place] [address], [facility] Glucose [Mass/Vol] 346 mg/dL High 70-100 [facility] Comment on above: Performed By: #### 1 0, 36952, 62970 #### [facility] [address] [facility] [place] [address], [place] Glucose [Mass/Vol] 206 mg/dL High 70-100 [facility] Comment on above: Performed By: #### 1 0, 11585, 78320 #### [facility] [address] [place] [address], [place] TROPONIN-Ion 06-30-2022 Troponin I.cardiac [Mass/Vol] 1.03 ng/mL Critically high 0.00-0.04 [facility] Comment on above: Result Comment: M-MS EVIOUS CRITICAL RESULT REFERENCE RANGES: 0.00 - 0.04 ng/ml NORMAL 0.05 - 0.50 ng/ml INDETERMINATE > 0.50 ng/ml CONSISTENT WITH AN M.I. Performed By: #### 1 0070, 79222, 80226 #### [facility] [address] UFH HEPARIN ASSAYon 06-30-20 UNFRACTIONATED HEPARIN 0.70 IU/mL Normal 0.30-0.70 [facility] Comment on above: Result Comment: Como roxaban and Apixaban will interfere with the anti Xa assay used to monitor UFH and LMWH. Performed By: #### 3 5200 #### [facility] [address] [facility] UNFRACTIONATED HEPARIN 0.61 IU/mL Normal 0.30-0.70 [facility] Comment on above: Result Comment: Como roxaban and Apixaban will interfere with the anti Xa assay used to monitor UFH and LMWH. Performed By: #### 8 [id number] #### [facility] [address] [facility] [address] UNFRACTIONATED HEPARIN 0.85 IU/mL High 0.30-0.70 [facility] Comment on above: Result Comment: Como roxaban and Apixaban will interfere with the anti Xa assay used to monitor UFH and LMWH. Performed By: #### 3 1791 #### [facility] [address] CBC COMPLETE BLOOD COUNTon 06-29-2022 Erythrocyte distribution width (RBC) [Ratio] 13.4 % Normal 11.5-15.0 [facility] Comment on above: Order Comment: No: D o not add to previous draw Performed By: #### 8 [id number] #### [facility] [address] [place] [address], [facility] Hematocrit (Bld) [Volume fraction] 34.3 % Low 36.0-45.0 [facility] Comment on above: Order Comment: No: D o not add to previous draw Performed By: #### 8 [id number] #### [facility] [address] [place] [address], [facility] Hemoglobin (Bld) [Mass/Vol] 11.3 g/dL Low 12.0-15.0 [facility] Comment on above: Order Comment: No: D o not add to previous draw Performed By: #### 8 [id number] #### [facility] [address] [place] [address], [facility] MCH (RBC) [Entitic mass] 27.2 pg Normal 27.0-33.0 [facility] Comment on above: Order Comment: No: D o not add to previous draw Performed By: #### 8 [id number] #### [facility] [address] MCHC (RBC) [Mass/Vol] 32.9 g/dL Normal 32.0-35.0 [facility] Comment on above: Order Comment: No: D o not add to previous draw Performed By: #### 8 [id number] #### [facility] [address] [place] [address], [facility] MCV (RBC) [Entitic vol] 82.7 fL Normal 82.0-98.0 [facility] Comment on above: Order Comment: No: D o not add to previous draw Performed By: #### 8 [id number] #### [facility] [address] [place] [address], [facility] Nucleated RBC/100 WBC (Bld) [Ratio] 0 % Normal 0-0 [facility] Comment on above: Order Comment: No: D o not add to previous draw Performed By: #### 8 [id number] #### [facility] [address] [place] [id number], [facility] PLAT CNT 234 10*3/uL Normal 150-400 [facility] Comment on above: Order Comment: No: D o not add to previous draw Performed By: #### 8 [id number] #### [facility] [address] [facility] [place] [address], [facility] RBC (Bld) [#/Vol] 4.15 10*6/uL Normal 3.80-5.00 [facility] Comment on above: Order Comment: No: D o not add to previous draw Performed By: #### 8 [id number] #### [facility] [address] [place] [address], [facility] WBC (Bld) [#/Vol] 7.28 10*3/uL Normal 4.00-10.60 [facility] Comment on above: Order Comment: No: D o not add to previous draw Performed By: #### 8 [id number] #### [facility] [address] [facility] [place] [address], [facility] Erythrocyte distribution width (RBC) [Ratio] 13.3 % Normal 11.5-15.0 [facility] Comment on above: Order Comment: No: D o not add to previous draw No collection time noted on specimen or requisition. The collection time recorded is the time of receipt in the lab. Performed By: #### 3 5200 #### [facility] [address] [facility] [place] [address], [facility] Hematocrit (Bld) [Volume fraction] 33.4 % Low 36.0-45.0 [facility] Comment on above: Order Comment: No: D o not add to previous draw No collection time noted on specimen or requisition. The collection time recorded is the time of receipt in the lab. Performed By: #### 3 5200 #### [facility] [address] [place] [address], [facility] Hemoglobin (Bld) [Mass/Vol] 10.8 g/dL Low 12.0-15.0 [facility] Comment on above: Order Comment: No: D o not add to previous draw No collection time noted on specimen or requisition. The collection time recorded is the time of receipt in the lab. Performed By: #### 3 5200 #### [facility] [address] MCH (RBC) [Entitic mass] 26.8 pg Low 27.0-33.0 [facility] Comment on above: Order Comment: No: D o not add to previous draw No collection time noted on specimen or requisition. The collection time recorded is the time of receipt in the lab. Performed By: #### 3 5200 #### [facility] [address] MCHC (RBC) [Mass/Vol] 32.3 g/dL Normal 32.0-35.0 [facility] Comment on above: Order Comment: No: D o not add to previous draw No collection time noted on specimen or requisition. The collection time recorded is the time of receipt in the lab. Performed By: #### 3 5200 #### [facility] [address] MCV (RBC) [Entitic vol] 82.9 fL Normal 82.0-98.0 [facility] Comment on above: Order Comment: No: D o not add to previous draw No collection time noted on specimen or requisition. The collection time recorded is the time of receipt in the lab. Performed By: #### 3 5200 #### [address] Nucleated RBC/100 WBC (Bld) [Ratio] 0 % Normal 0-0 [facility] Comment on above: Order Comment: No: D o not add to previous draw No collection time noted on specimen or requisition. The collection time recorded is the time of receipt in the lab. Performed By: #### 3 5200 #### [facility] [address] PLAT CNT 227 10*3/uL Normal 150-400 [facility] Comment on above: Order Comment: No: D o not add to previous draw No collection time noted on specimen or requisition. The collection time recorded is the time of receipt in the lab. Performed By: #### 3 5200 #### [facility] [address] [place] [address], [facility] RBC (Bld) [#/Vol] 4.03 10*6/uL Normal 3.80-5.00 [facility] Comment on above: Order Comment: No: D o not add to previous draw No collection time noted on specimen or requisition. The collection time recorded is the time of receipt in the lab. Performed By: #### 3 5200 #### [facility] [address] [place] [address], [facility] WBC (Bld) [#/Vol] 7.85 10*3/uL Normal 4.00-10.60 [facility] Comment on above: Order Comment: No: D o not add to previous draw No collection time noted on specimen or requisition. The collection time recorded is the time of receipt in the lab. Performed By: #### 3 5200 #### [facility] [address] [place] [address], [facility] CBC W/DIFFon 06-29-2022 ABS IMM GRANS 0.0 10*3/uL Normal 0.0-0.2 [facility] Comment on above: Order Comment: No co llection time noted on specimen or requisition. The collection timerecorded is the time of receipt in the lab. Performed By: #### 8 [id number] #### [facility] [address] [place] [address], [facility] ABS NEUTROPHILS 5.2 10*3/uL Normal 1.6-7.6 [facility] Comment on above: Order Comment: No co llection time noted on specimen or requisition. The collection timerecorded is the time of receipt in the lab. Performed By: #### 8 [id number] #### [facility] [address] [place] [address], [facility] Basophils (Bld) [#/Vol] 0.0 10*3/uL Normal 0.0-0.2 [facility] Comment on above: Order Comment: No co llection time noted on specimen or requisition. The collection timerecorded is the time of receipt in the lab. Performed By: #### 8 [id number] #### [facility] [address] [place] [address], [facility] Basophils/100 WBC (Bld) 0.5 % Normal 0.0-1.0 [facility] Comment on above: Order Comment: No co llection time noted on specimen or requisition. The collection timerecorded is the time of receipt in the lab. Performed By: #### 8 [id number] #### [facility] [address] [place] [address], [facility] Eosinophils (Bld) [#/Vol] 0.1 10*3/uL Normal 0.0-0.5 [facility] Comment on above: Order Comment: No co llection time noted on specimen or requisition. The collection timerecorded is the time of receipt in the lab. Performed By: #### 8 [id number] #### [facility] [address] [place] [address], [facility] Eosinophils/100 WBC (Bld) 1.3 % Normal 0.0-6.0 [facility] Comment on above: Order Comment: No co llection time noted on specimen or requisition. The collection timerecorded is the time of receipt in the lab. Performed By: #### 8 [id number] #### [facility] [address] [facility] [place] [address], [facility] Erythrocyte distribution width (RBC) [Ratio] 13.3 % Normal 11.5-15.0 [facility] Comment on above: Order Comment: No co llection time noted on specimen or requisition. The collection timerecorded is the time of receipt in the lab. Performed By: #### 8 [id number] #### [facility] [address] Hematocrit (Bld) [Volume fraction] 34.0 % Low 36.0-45.0 [facility] Comment on above: Order Comment: No co llection time noted on specimen or requisition. The collection timerecorded is the time of receipt in the lab. Performed By: #### 8 [id number] #### [facility] [address] [place] [address], [facility] Hemoglobin (Bld) [Mass/Vol] 11.4 g/dL Low 12.0-15.0 [facility] Comment on above: Order Comment: No co llection time noted on specimen or requisition. The collection timerecorded is the time of receipt in the lab. Performed By: #### 8 [id number] #### [facility] [address] IMMATURE GRANS 0.4 % Normal 0.0-1.0 [facility] Comment on above: Order Comment: No co llection time noted on specimen or requisition. The collection timerecorded is the time of receipt in the lab. Performed By: #### 8 [id number] #### [facility] [address] [place] [address], [facility] Lymphocytes (Bld) [#/Vol] 1.5 10*3/uL Normal 1.2-4.0 [facility] Comment on above: Order Comment: No co llection time noted on specimen or requisition. The collection timerecorded is the time of receipt in the lab. Performed By: #### 8 [id number] #### [facility] [address] [place] [address], [facility] Lymphocytes/100 WBC (Bld) 19.5 % Low 20.0-45.0 [facility] Comment on above: Order Comment: No co llection time noted on specimen or requisition. The collection timerecorded is the time of receipt in the lab. Performed By: #### 8 [id number] #### [facility] [address] MCH (RBC) [Entitic mass] 27.7 pg Normal 27.0-33.0 [facility] Comment on above: Order Comment: No co llection time noted on specimen or requisition. The collection timerecorded is the time of receipt in the lab. Performed By: #### 8 [id number] #### [facility] [address] MCHC (RBC) [Mass/Vol] 33.5 g/dL Normal 32.0-35.0 [facility] Comment on above: Order Comment: No co llection time noted on specimen or requisition. The collection timerecorded is the time of receipt in the lab. Performed By: #### 8 [id number] #### [facility] [address] MCV (RBC) [Entitic vol] 82.7 fL Normal 82.0-98.0 [facility] Comment on above: Order Comment: No co llection time noted on specimen or requisition. The collection timerecorded is the time of receipt in the lab. Performed By: #### 8 [id number] #### [facility] [address] Monocytes (Bld) [#/Vol] 1.0 10*3/uL Normal 0.1-1.0 [facility] Comment on above: Order Comment: No co llection time noted on specimen or requisition. The collection timerecorded is the time of receipt in the lab. Performed By: #### 8 [id number] #### [facility] [address] MONOS 12.5 % High 5.0-12.0 [facility] Comment on above: Order Comment: No co llection time noted on specimen or requisition. The collection timerecorded is the time of receipt in the lab. Performed By: #### 8 [id number] #### [facility] [address] [place] [address], [facility] Neutrophils/100 WBC (Bld) 65.8 % Normal 40.0-72.0 [facility] Comment on above: Order Comment: No co llection time noted on specimen or requisition. The collection timerecorded is the time of receipt in the lab. Performed By: #### 8 [id number] #### [facility] [address] [place] [id number], [facility] Nucleated RBC/100 WBC (Bld) [Ratio] 0 % Normal 0-0 [facility] Comment on above: Order Comment: No co llection time noted on specimen or requisition. The collection timerecorded is the time of receipt in the lab. Performed By: #### 8 [id number] #### [facility] [address] [place] [address], [place] PLAT CNT 235 10*3/uL Normal 150-400 [facility] Comment on above: Order Comment: No co llection time noted on specimen or requisition. The collection timerecorded is the time of receipt in the lab. Performed By: #### 8 [id number] #### [facility] [address] [place] [address], [facility] RBC (Bld) [#/Vol] 4.11 10*6/uL Normal 3.80-5.00 [facility] Comment on above: Order Comment: No co llection time noted on specimen or requisition. The collection timerecorded is the time of receipt in the lab. Performed By: #### 8 [id number] #### [facility] [address] [place] [address], [place] WBC (Bld) [#/Vol] 7.91 10*3/uL Normal 4.00-10.60 [facility] Comment on above: Order Comment: No co llection time noted on specimen or requisition. The collection timerecorded is the time of receipt in the lab. Performed By: #### 8 [id number] #### [facility] [address] COMP METABOLIC PANELon 06-29 Albumin [Mass/Vol] 2.9 g/dL Low 3.5-5.7 [facility] Comment on above: Order Comment: No: D o not add to previous draw No collection time noted on specimen or requisition. The collection time recorded is the time of receipt in the lab. Performed By: #### 3 1791 #### [facility] [address] [facility] [place] [address], [facility] ALKALINE PHOSPH 88 IU/L Normal 34-104 [facility] Comment on above: Order Comment: No: D o not add to previous draw No collection time noted on specimen or requisition. The collection time recorded is the time of receipt in the lab. Performed By: #### 3 1791 #### [facility] [address] ALT [Catalytic activity/Vol] 21 U/L Normal 7-52 [facility] Comment on above: Order Comment: No: D o not add to previous draw No collection time noted on specimen or requisition. The collection time recorded is the time of receipt in the lab. Performed By: #### 3 1791 #### [facility] [address] AST [Catalytic activity/Vol] 27 U/L Normal 13-39 [facility] Comment on above: Order Comment: No: D o not add to previous draw No collection time noted on specimen or requisition. The collection time recorded is the time of receipt in the lab. Performed By: #### 3 1791 #### [facility] [address] [place] [address], [facility] Bilirubin [Mass/Vol] 0.5 mg/dL Normal 0.3-1.0 [facility] Comment on above: Order Comment: No: D o not add to previous draw No collection time noted on specimen or requisition. The collection time recorded is the time of receipt in the lab. Performed By: #### 3 1791 #### [facility] [address] [place] [address], [facility] Calcium [Mass/Vol] 8.2 mg/dL Low 8.6-10.3 [facility] Comment on above: Order Comment: No: D o not add to previous draw No collection time noted on specimen or requisition. The collection time recorded is the time of receipt in the lab. Performed By: #### 3 1791 #### [facility] [address] [place] [id number], [facility] Chloride [Moles/Vol] 101 mmol/L Normal 98-107 [facility] Comment on above: Order Comment: No: D o not add to previous draw No collection time noted on specimen or requisition. The collection time recorded is the time of receipt in the lab. Performed By: #### 3 1791 #### [facility] [address] [place] [address], [facility] CO2 [Moles/Vol] 22 mmol/L Normal 21-31 [facility] Comment on above: Order Comment: No: D o not add to previous draw No collection time noted on specimen or requisition. The collection time recorded is the time of receipt in the lab. Performed By: #### 3 1791 #### [facility] [address] [place] [address], [facility] Creatinine [Mass/Vol] 0.45 mg/dL Low 0.60-1.20 [facility] Comment on above: Order Comment: No: D o not add to previous draw No collection time noted on specimen or requisition. The collection time recorded is the time of receipt in the lab. Performed By: #### 3 1791 #### [facility] [address] [facility] [place] [address], [facility] GFR/1.73 sq M.predicted among non-blacks MDRD (S/P/Bld) [Vol rate/Area] mL/min/{1.73_m2} Normal >60 [facility] Comment on above: Order Comment: No: D o not add to previous draw No collection time noted on specimen or requisition. The collection time recorded is the time of receipt in the lab. Result Comment: [facility]'s estimated glomerular filtration rate (eGFR) will [...] individuals. Performed By: #### 3 1791 #### [facility] [address] [place] [address], [facility] Glucose [Mass/Vol] 278 mg/dL High 70-100 [facility] Comment on above: Order Comment: No: D o not add to previous draw No collection time noted on specimen or requisition. The collection time recorded is the time of receipt in the lab. Performed By: #### 3 1791 #### [facility] [address] [place] [address], [facility] Potassium [Moles/Vol] 3.8 mmol/L Normal 3.5-5.1 [facility] Comment on above: Order Comment: No: D o not add to previous draw No collection time noted on specimen or requisition. The collection time recorded is the time of receipt in the lab. Performed By: #### 3 1791 #### [facility] [address] [place] [address], [facility] Protein [Mass/Vol] 5.3 g/dL Low 6.0-8.3 [facility] Comment on above: Order Comment: No: D o not add to previous draw No collection time noted on specimen or requisition. The collection time recorded is the time of receipt in the lab. Performed By: #### 3 1791 #### [facility] [address] [place] [address], [place] Sodium [Moles/Vol] 133 mmol/L Low 136-145 [facility] Comment on above: Order Comment: No: D o not add to previous draw No collection time noted on specimen or requisition. The collection time recorded is the time of receipt in the lab. Performed By: #### 3 1791 #### [address] Urea nitrogen [Mass/Vol] 19 mg/dL Normal 7-25 [facility] Comment on above: Order Comment: No: D o not add to previous draw No collection time noted on specimen or requisition. The collection time recorded is the time of receipt in the lab. Performed By: #### 3 1791 #### [address] CTA CHESTon 06-29-2022 CTA CHEST [facility] Department of Radiology [address] [place] [address] [phone] ======== Patient Name: MARIMAR PATEL : 1955 Sex: F Age: Race: White Pt. Location: [facility] Patient Status: E Ordered Date: [...] report. Electronically signed: Shane Baldwin. Transcribed by: [email or web address], User Resident: [email or web address] RUSS Electronically Signed by: SHANE BALDWIN @ 06/29/2022 01:00 AM I personally read this/these film(s) with this resident Normal [facility] Comment on above: Order Comment: Pulmo nary Embolism HEMOGLOBIN A1Con 06-29-2022 Glucose [Moles/Vol] 111 mmol/L Normal [facility] Comment on above: Order Comment: No: D o not add to previous draw No collection time noted on specimen or requisition. The collection time recorded is the time of receipt in the lab. Performed By: #### 3 1791 #### [facility] [address] [facility] [place] [address], [facility] HbA1c (Bld) [Mass fraction] 5.5 % Normal 4.0-6.0 [facility] Comment on above: Order Comment: No: D o not add to previous draw No collection time noted on specimen or requisition. The collection time recorded is the time of receipt in the lab. Performed By: #### 3 1791 #### [facility] [address] [place] [address], [facility] LIPID PROFILEon 06-29-2022 Cholesterol [Mass/Vol] 223 mg/dL High 120-200 Th e [facility] Comment on above: Result Comment: CHOL ESTEROL REFERENCE RANGE: 20 YEARS AND OLDER CARDIOVASCULAR RISK Less than 200 mg/dl Low Risk 200 to 239 mg/dl Borderline Risk 240 mg/dl and greater High Risk Performed By: #### 3 1791 #### [facility] [address] [facility] [place] [address], [facility] Cholesterol in HDL [Mass/Vol] 28 mg/dL Normal 23-92 [facility] Comment on above: Result Comment: Slig ht variation in normal range could be due to gender and/or age. HDL CHOLESTEROL REFERENCE RANGE: 20 years and older Cardiovascular Risk > or =60 mg/dL Desirable 40 TO 59 mg/dL Low Risk <40 mg/dL High Risk Performed By: #### 3 1791 #### [facility] [address] [place] [address], [facility] Cholesterol in LDL [Mass/Vol] 138 mg/dL High 0-130 [facility] Comment on above: Result Comment: LDL IS A CALCULATION LDL IS ONLY VALID IF THE TRIG IS LESS THAN 400. Performed By: #### 3 1791 #### [facility] [address] [place] [address], [place] Cholesterol.total/Chol esterol in HDL [Mass ratio] 8.0 {ratio} High .0-4.5 [facility] Comment on above: Performed By: #### 3 1791 #### [facility] [address] [place] [address], [place] NON-HDL CHOLESTEROL 195 mg/dL Normal [facility] Comment on above: Performed By: #### 3 1790 #### [facility] [address] [place] [address], [place] Triglyceride [Mass/Vol] 285 mg/dL High 40-149 [facility] Comment on above: Result Comment: TRIG LYCERIDE REFERENCE RANGE: 20 YEARS AND OLDER CARDIOVASCULAR RISK LESS THAN 150 mg/dl LOW RISK 150 TO 199 mg/dl BORDERLINE RISK 200 mg/dl AND GREATER HIGH RISK Performed By: #### 3 1 #### [facility] [address] [place] [address], [place] VLDL CHOL 57 mg/dL High 0-40 [facility] Comment on above: Performed By: #### 3 1790 #### [facility] [address] [place] [address], [place] POC GLUCOSE LABon 06-29-2022 Glucose [Mass/Vol] 190 mg/dL High 70-100 [facility] Comment on above: Performed By: #### 8 [id number] #### [facility] [address] [place] [address], [place] Glucose [Mass/Vol] 256 mg/dL High 70-100 [facility] Comment on above: Performed By: #### 8 [id number] #### [facility] [address] [place] [address], [place] Glucose [Mass/Vol] 444 mg/dL High 70-100 [facility] Comment on above: Performed By: #### 1 0070, 02774, [id number] #### [facility] [address] [place] [address], [facility] Glucose [Mass/Vol] 304 mg/dL High 70-100 [facility] Comment on above: Performed By: #### 1 0070, [id number], [id number] #### [facility] [address] [facility] [place] [address], [facility] POC SARS COV2 ANTIGEN NEGATI VEon 06-29-2022 POC SARS COV2 ANTIGEN NEG Negative Normal NEGATIVE [facility] Comment on above: Result Comment: Nega [...] antigen from SARS-CoV-2 in direct nasopharyngeal swab (TIMBER HARVESTER OPERATOR) specimens from individuals who are suspected [...] Accreditation. Performed By: #### 8 [id number] #### [facility] [address] [facility] [place] [address], [facility] TROPONIN-Ion 06-29-2022 Troponin I.cardiac [Mass/Vol] 1.52 ng/mL Critically high 0.00-0.04 [facility] Comment on above: Order Comment: No: D o not add to previous draw No collection time noted on specimen or requisition. The collection time recorded is the time of receipt in the lab. Result Comment: M-MS EVIOUS CRITICAL RESULT REFERENCE RANGES: 0.00 - 0.04 ng/ml NORMAL 0.05 - 0.50 ng/ml INDETERMINATE > 0.50 ng/ml CONSISTENT WITH AN M.I. Performed By: #### 3 5200 #### [facility] [address] [place] [address], [facility] Troponin I.cardiac [Mass/Vol] 1.77 ng/mL Critically high 0.00-0.04 [facility] Comment on above: Order Comment: No: D o not add to previous draw No collection time noted on specimen or requisition. The collection time recorded is the time of receipt in the lab. Result Comment: M-TR OPONIN INITIAL CRITICAL HIGH; RESPUN AND RETESTED M-CRITICAL RESULT(S) REVIEWED, CALLED TO AND READ BACK BY DR OMRALES AT 2321 REFERENCE RANGES: 0.00 - 0.04 ng/ml NORMAL 0.05 - 0.50 ng/ml INDETERMINATE > 0.50 ng/ml CONSISTENT WITH AN M.I. Performed By: #### 3 1791 #### [facility] [address] [place] [address], [facility] TSH3 WITH REFLEX FT4on 06-29 TSH 3RD GENERATION 1.96 uIU/mL Normal 0.34-5.60 [facility] Comment on above: Performed By: #### 3 1791 #### [facility] [address] [facility] [place] [address], [facility] UFH HEPARIN ASSAYon 06-29-20 UNFRACTIONATED HEPARIN 0.15 IU/mL Critically low 0.30-0.70 [facility] Comment on above: Result Comment: RESU LTS CHECKED AND CALLED. ACCURATELY READ BACK BY Isabela Shannon RN at 2220 PMW 06-29-22. Rivaroxaban and Apixaban will interfere with the anti Xa assay used to monitor UFH and LMWH. Performed By: #### 3 1791 #### [facility] [address] [place] [address], [facility] UNFRACTIONATED HEPARIN <0.10 Critically low 0.30-0.70 [facility] Comment on above: Result Comment: Resu lt checked and called. Accurately read back by JENNIFER WILLINGHAM RN @1404 06/29/22 Rivaroxaban and Apixaban will interfere with the anti Xa assay used to monitor UFH and LMWH. Performed By: #### 3 5200 #### [facility] [address] UNFRACTIONATED HEPARIN <0.10 Critically low 0.30-0.70 [facility] Comment on above: Result Comment: RESU LTS CHECKED AND CALLED. ACCURATELY READ BACK BY REG KILGORE RN @ 0531 Rivaroxaban and Apixaban will interfere with the anti Xa assay used to monitor UFH and LMWH. Performed By: #### 3 5200 #### [facility] [address] APTTon 2022 aPTT Coag (Bld) [Time] 32.0 s Normal 25.0-35.0 [facility] Comment on above: Result Comment: ALL RESULTS [...] PURPOSE. Performed By: #### 3 5200 #### [facility] [address] BNPon 2022 Natriuretic peptide B (Bld) [Mass/Vol] 3794.0 pg/mL Critically high <=900.0 [facility] Comment on above: Performed By: #### C BC #### [facility] [address] [place] [address] Dr. Sruthi Arechiga CARDIAC TONJA ADMITon 022 CK [Catalytic activity/Vol] 51 U/L Normal 26-192 [facility] Comment on above: Performed By: #### C BC #### [facility] [address] [place] [address] [address] Sruthi Arechiga CK.MB [Mass/Vol] 2.23 ng/mL Normal <=3.60 [facility] Comment on above: Performed By: #### C BC #### [facility] [address] [place] [address] [address] Sruthi Arechiga HSTROP 705.8 pg/mL Critically high 4.0-51.3 [facility] Comment on above: Result Comment: CUT- OFF POINTS HAVE BEEN ESTABLISHED BASED ON THE FOURTH UNIVERSAL DEFINITIONS OF MYOCARDIAL INFARCTION. THE UPPER REFERENCE LIMIT (URL) OF TROPONIN, DEFINED THE 99TH PERCENTILE OF cTnI DISTRIBUTION IN A REFERENCE POPULATION, HAS BEEN CONFIRMED THE DECISION THRESHOLD FOR SD DIAGNOSIS. Performed By: #### C BC #### [facility] [address] [place] [address] Dr. Sruthi Arechiga DIMITRY 73 ng/mL Normal 9-82 [facility] Comment on above: Performed By: #### C BC #### [facility] [address] [place] [address] Dr. Sruthi Arechiga CBC W MANUAL DIFFon 06-28-20 22 ATYPICAL LYMPH # Normal [facility] Comment on above: Performed By: #### C PITA ####[facility] [address] [place] [address]DrIndu Arechiga ATYPICAL LYMPH % Normal [facility] Comment on above: Performed By: #### C LIMAN ####[facility] [address] [place] [address]DrIndu Arechiga BAND # 0.1 103/ul Normal 0.0-0.3 [facility] Comment on above: Performed By: #### C PITA ####[facility] [address] [place] [address]DrIndu Arechiga BAND % 1 % Normal 0-5 [facility] Comment on above: Performed By: #### C PITA ####[facility] [address] [place] [address]DrIndu Arechiga BASOM # 0.00 103/ul Normal 0.00-0.10 [facility] Comment on above: Performed By: #### C PITA ####[facility] [address] [place] [address]Dr. Sruthi Arechiga BASOM % 0.0 % Critically low 0.2-2.[address] [facility] Comment on above: Performed By: #### C PITA ####[facility] [address] [place] [address]Dr. Sruthi Arechiga BLAST # Normal [facility] Comment on above: Performed By: #### C PITA ####[facility] [address] [place] [address]Dr. Sruthi Arechiga BLAST % Normal [facility] Comment on above: Performed By: #### C PITA ####[facility] [address] [place], [place] [address]Dr. Sruthi Arechiga CORRECTED WBC Normal 4.0-11.0 [facility] Comment on above: Performed By: #### C PITA ####[facility] [address] [place] [address]Dr. Sruthi Arechiga EOS # 0.13 103/ul Normal 0.00-0.70 [facility] Comment on above: Performed By: #### C PITA ####[facility] [address] [place] [address]Dr. Sruthi Arechiga EOS% 1.0 % Normal 0.9-7.0 [facility] Comment on above: Performed By: #### C PITA ####[facility] [address] [place] [address]Dr. Sruthi Arechiga HCT 38.8 % Normal 36.0-48.0 [facility] Comment on above: Performed By: #### C PITA ####[facility] [address] [place], [place] [address]Dr. Sruthi Arechiga HGB 12.5 g/dl Normal 12.0-16.0 [facility] Comment on above: Performed By: #### C PITA ####[facility] [address] [place], [place] [address]Dr. Sruthi Arechiga LYMPHM # 1.51 103/ul Normal 1.20-3.80 [facility] Comment on above: Performed By: #### C PITA ####[facility] [address] [place] [id number]. Sruthi Arechiga LYMPHM% 12.0 % Critically low 20.5-60.[address] [facility] Comment on above: Performed By: #### C PITA ####[facility] [address] [place] [id number]. Sruthi Arechiga MCH 27.2 pg Normal 26.7-34.0 The [facility] Comment on above: Performed By: #### C PITA ####[facility] [address] [place] [phone]. Sruthi Arechiga MCHC 32.2 g/dl Normal 29.9-35.2 The [facility] Comment on above: Performed By: #### C PITA ####[facility] [address] [place] [id number]. Sruthi Arechiga MCV 84.3 fL Normal 81.0-99.0 The [facility] Comment on above: Performed By: #### C PITA ####[facility] [address] [place] [phone]. Sruthi Arechiga METAMYELOCYTE # Normal The [facility] Comment on above: Performed By: #### C PITA ####[facility] [address] [place] [phone]. Sruthi Arechiga METAMYELOCYTE % Normal The [facility] Comment on above: Performed By: #### C BCJOSE ANGEL ####[facility] [address] [place], [place] [address]Uz. Sruthi Arechiga MONOM# 1.64 103/ul Critically high 0.30-0.80 The [facility] Comment on above: Performed By: #### C PITA ####[facility] [address] [place] [phone]. Sruthi Arechiga MONOM% 13.0 % Critically high 1.7-12.0 The [facility] Comment on above: Performed By: #### C PITA ####[facility] [address] [place], [place] [address]Sb. Sruthi Arechiga MPV 11.7 fL Normal 9.5-13.5 The [facility] Comment on above: Performed By: #### C PITA ####[facility] [address]nn[address] [place], [place] [address]Gu. Sruthi Arechiga MYELOCYTE # Normal The [facility] Comment on above: Performed By: #### C PITA ####[facility] [address]fs[address] [place], [place] [address]Hy. Sruthi Arechiga MYELOCYTE % Normal The [facility] Comment on above: Performed By: #### C PITA ####[facility] [address] [place] [phone]. Sruthi Arechiga NRBC Normal The [facility] Comment on above: Performed By: #### C PITA ####[facility] [address] [place] [phone]. Sruthi Arechiga PLT 237 103/ul Normal 150-450 The [facility] Comment on above: Performed By: #### C PITA ####[facility] [address]ff[address]up[address] [place] [phone]. Sruthi Arechiga RBC 4.60 106/ul Normal 4.20-5.40 The [facility] Comment on above: Performed By: #### C PITA ####[facility] [address] [place] [phone]. Sruthi Arechiga RDW 13.2 % Normal 11.0-15.0 The [facility] Comment on above: Performed By: #### C PITA ####[facility] [address] [place] [phone]. Sruthi Arechiga SEG # 9.20 103/ul Critically high 1.40-6.50 [facility] Comment on above: Performed By: #### C PITA ####[facility] [address] [place] [phone]. Sruthi Arechiga SEG % 73.0 % Normal 43.0-75.0 The [facility] Comment on above: Performed By: #### C PITA ####[facility] [address]er[address] [place], [place] [address]YyDr. Sruthi Arechiga WBC 12.6 103/ul Critically high 4.0-11.0 [facility] Comment on above: Performed By: #### C PITA ####[facility] [address] [place] [phone] Arechiga Covid-19 PCR (CVDTBH)on 06-10 SARS-CoV-2 (COVID-19) RNA KOLE+probe Ql (Unsp spec) Not detected Normal NOT DETECTED The [facility] Comment on above: Result Comment: When diagnostic [...] for this test is supported by the [place] of Health and Human Service's declaration that [...] be used). Performed By: #### C VDTB ####[facility] [address]kmvc[address] [place] [phone]. Sruthi Arechiga LIPASEon 2022 Lipase [Catalytic activity/Vol] 75.0 U/L Normal 73.0-393.0 [facility] Comment on above: Performed By: #### C LI #### [facility] Laboratory [address] [place] [address] Dr. Sruthi Arechiga POINT OF CARE GLUCOSEon 06-10 Glucose [Mass/Vol] 351 mg/dL Critically high 74-106 T [facility] Comment on above: Performed By: #### C VDTB #### [facility] Laboratory [address] [place] [address] Dr. Sruthi Arechiga PROF 14(COMP METB)on 022 Albumin [Mass/Vol] 2.5 g/dL Critically low 3.4-5.0 [facility] Comment on above: Performed By: #### C MP #### [facility] [address] [place] [address] Dr. Sruthi Arechiga Albumin/Globulin [Mass ratio] 0.6 {ratio} Normal [facility] Comment on above: Performed By: #### C MP #### [facility] [address] [place] [address] Dr. Sruthi Arechiga ALP [Catalytic activity/Vol] 132 U/L Critically high 46-116 [facility] Comment on above: Performed By: #### C MP #### [facility] [address] [place] [address] Dr. Sruthi Arechiga ALT [Catalytic activity/Vol] 32 U/L Normal 14-59 [facility] Comment on above: Performed By: #### C MP #### [facility] [address] [place] [address] Dr. Sruthi Arechiga Anion gap [Moles/Vol] 19.2 mmol/L Normal [facility] Comment on above: Performed By: #### C MP #### [facility] [address] [place] [address] Dr. Sruthi Arechiga AST [Catalytic activity/Vol] 24 U/L Normal 15-37 [facility] Comment on above: Performed By: #### C MP #### [facility] [address] [place] [address] Dr. Sruthi Arechiga Bilirubin [Mass/Vol] 0.5 mg/dL Normal 0.2-1.0 [facility] Comment on above: Performed By: #### C MP #### [facility] [address] [place] [address] Dr. Sruthi Arechiga Calcium [Mass/Vol] 9.5 mg/dL Normal 8.5-10.1 [facility] Comment on above: Performed By: #### C MP #### [facility] [address] [address] [address] Sruthi Arechiga Chloride [Moles/Vol] 95 mmol/L Critically low 98-107 [facility] Comment on above: Performed By: #### C MP #### [facility] [address] [place] [address] Dr. Sruthi Arechiga CO2 [Moles/Vol] 20.3 mmol/L Critically low 21.0-32.0 [facility] Comment on above: Performed By: #### C MP #### [facility] [address] [place] [address] Dr. Sruthi Arechiga Creatinine [Mass/Vol] 0.78 mg/dL Normal 0.55-1.02 [facility] Comment on above: Performed By: #### C MP #### [facility] [address] [place] [address] Dr. Sruthi Arechiga EGFR-AF [place] >60 Normal >=60 [facility] Comment on above: Performed By: #### C MP #### [facility] [address] [place] [address] Dr. Sruthi Arechiga EGFR-NON AF [place] >60 Normal >=60 [facility] Comment on above: Performed By: #### C MP #### [facility] [address] [place] [address] Dr. Sruthi Arechiga Globulin (S) [Mass/Vol] 4.3 g/dL Normal [facility] Comment on above: Performed By: #### C MP #### [facility] [address] [place] [address] Dr. Sruthi Arechiga Glucose [Mass/Vol] 389 mg/dL Critically high 74-106 [facility] Comment on above: Performed By: #### C MP #### [facility] [address] [place] [address] Dr. Sruthi Arechiga Potassium [Moles/Vol] 3.5 mmol/L Normal 3.5-5.1 [facility] Comment on above: Performed By: #### C MP #### [facility] [address] [place] [address] Dr. Sruthi Arechiga Protein [Mass/Vol] 6.8 g/dL Normal 6.4-8.2 [facility] Comment on above: Performed By: #### C MP #### [facility] [address] [address] [address] Sruthi Arechiga Sodium [Moles/Vol] 131 mmol/L Critically low 136-145 Th [facility] Comment on above: Performed By: #### C MP #### [facility] [address] [address] [address] Sruthi Arechiga Urea nitrogen [Mass/Vol] 24.0 mg/dL Critically high 7.0-18.0 [facility] Comment on above: Performed By: #### C MP #### [facility] [address] [place] [address] Dr. Sruthi Arechiga Urea nitrogen/Creatinine [Mass ratio] 30.8 mg/mg Normal [facility] Comment on above: Performed By: #### C MP #### [facility] [address] [place] [address] Dr. Sruthi Arechiga PROTHROMBIN TIMEon 2 INR Coag (PPP) [Relative time] 1.01 {INR} Normal 0.91-1.16 [facility] Comment on above: Result Comment: [...] 1995;[id number]. Performed By: #### 3 5200 #### [facility] [address] [place] [address], [facility] PT Coag (PPP) [Time] 13.3 s Normal 12.3-14.8 The [facility] Comment on above: Result Comment: ALL RESULTS MUST BE INTERPRETED WITH RESPECT TO BLOOD DRAWING ARTIFACT OR DILUTION ERROR OF ANTICOAGULANT AT THE TIME OF SAMPLING. Performed By: #### 3 5200 #### [facility] [address] [place] [address], [place] PROTIMEon 2022 INR Coag (PPP) [Relative time] 0.98 {INR} Normal [facility] Comment on above: Performed By: #### C VDTBH #### [facility] Laboratory [address] [place] [address] Dr. Sruthi Arechiga INR GUIDELINES SEE BELOW Normal [facility] Comment on above: Result Comment: JESSICA RED INR: 2.0 - 3.0 CONDITIONS NOT LISTED BELOW 2.5 - 3.5 FOR PROSTHETIC HEART VALVE REPLACEMENT 2.5 - 3.5 RECURRENT THROMBOSIS Performed By: #### C VDTBH #### [facility] [address] [address] [address] Sruthi Arechiga PT Coag (PPP) [Time] 10.6 s Normal 9.0-11.6 [facility] Comment on above: Performed By: #### C VDTBH #### [facility] Laboratory [address] [address] [address] Sruthi Arechiga PTTon 2022 aPTT Coag (Bld) [Time] 32.5 s Normal 22.3-36.2 Th [facility] Comment on above: Performed By: #### C VDTBH #### [facility] [address] [place] [address] Dr. Sruthi Arechiga TROPONIN, HIGH SENSITIVITYon 2022 HSTROP 4940.1 pg/mL Critically high 4.0-51.3 [facility] Comment on above: Result Comment: CUT- OFF POINTS HAVE BEEN ESTABLISHED BASED ON THE FOURTH UNIVERSAL DEFINITIONS OF MYOCARDIAL INFARCTION. THE UPPER REFERENCE LIMIT (URL) OF TROPONIN, DEFINED THE 99TH PERCENTILE OF cTnI DISTRIBUTION IN A REFERENCE POPULATION, HAS BEEN CONFIRMED THE DECISION THRESHOLD FOR SD DIAGNOSIS. Performed By: #### H STROPN #### [facility] [address] [place], [place] [address] Dr. Sruthi Arechiga HSTROP 1816.7 pg/mL Critically high 4.0-51.3 [facility] Comment on above: Result Comment: CUT- OFF POINTS HAVE BEEN ESTABLISHED BASED ON THE FOURTH UNIVERSAL DEFINITIONS OF MYOCARDIAL INFARCTION. THE UPPER REFERENCE LIMIT (URL) OF TROPONIN, DEFINED THE 99TH PERCENTILE OF cTnI DISTRIBUTION IN A REFERENCE POPULATION, HAS BEEN CONFIRMED THE DECISION THRESHOLD FOR SD DIAGNOSIS. Performed By: #### C BC #### [facility] [address] [place], [place] [address] Dr. Sruthi Arechiga TSHon 2022 TSH 3.865 uIU/mL Critically high 0.358-3.740 [facility] Comment on above: Performed By: #### T SH, LIPA, BNP, CMADM ####[facility] [address] [place], [place] [address]Dr. Sruthi Arechiga UFH HEPARIN ASSAYon 06-28-20 22 UNFRACTIONATED HEPARIN <0.10 Critically low 0.30-0.70 [facility] Comment on above: Order Comment: [...] LMWH. Performed By: #### 3 [id number] #### [facility] [address] [place] [address], [facility] XR CHEST 1 Von 2022 XR [...] by: GERMAIN COY Date: 2022 06:58 Normal [facility] Vital Signs Date Time Vital Sign Value Performing Clinician Facility 12-11-2023 16:15-0500 Body height 157.5 cm Alexis Gilmore DPM Work Phone: [facility] 12-11-2023 16:15-0500 Body mass index (BMI) [Ratio] 29.26 kg/m2 Alexis Gilmore DPM Work Phone: [facility] 12-11-2023 16:15-0500 Body weight 72.58 kg Alexis Gilmore DPM Work Phone: [facility] 12-11-2023 16:15-0500 Diastolic blood pressure 80 mm[Hg] Alexis Gilmore DPM Work Phone: [facility] 12-11-2023 16:15-0500 Heart rate 77 /min Aelxis Gilmore DPM Work Phone: [facility] 12-11-2023 16:15-0500 Systolic blood pressure 130 mm[Hg] Alexis Gilmore DPM Work Phone: [facility] 02-19-2023 10:30-0400 Body height 157.48 cm Sabrina Solanokervin Other [facility] Other 02-19-2023 10:30-0400 Body mass index (BMI) [Ratio] 28.35 kg/m2 Sabrina Suha Other [facility] Other 02-19-2023 10:30-0400 Body temperature 97.8 [degF] Sabrina Borden Other [facility] Other 02-19-2023 10:30-0400 Body weight 70.31 kg Sabrina Borden Other [facility] Other 02-19-2023 10:30-0400 Diastolic blood pressure 64 mm[Hg] Sabrina Borden Other [facility] Other 02-19-2023 10:30-0400 SaO2% (BldA) [Mass fraction] 95 % Sabrina Borden Other [facility] Other 02-19-2023 10:30-0400 Systolic blood pressure 112 mm[Hg] Sabrina Borden Other [facility] Other 01-13-2023 16:30-0500 Diastolic blood pressure 57 mm[Hg] II Nik Bell Work Phone: [facility] 01-13-2023 16:30-0500 Heart rate 63 /min II Nik Bell Work Phone: [facility] 01-13-2023 16:30-0500 Respiratory rate 16 /min II Nik Bell Work Phone: [facility] 01-13-2023 16:30-0500 SaO2% (BldA) [Mass fraction] 95 % II Nik Bell Work Phone: [facility] 01-13-2023 16:30-0500 Systolic blood pressure 123 mm[Hg] II Nik Bell Work Phone: [facility] 01-13-2023 14:00-0500 Inhaled oxygen flow rate 2 L/min II Nik Bell Work Phone: [facility] 01-13-2023 11:42-0500 Body height 157.48 cm II Nik Bell Work Phone: [facility] 01-13-2023 11:42-0500 Body weight 68.49 kg MONSE Bell Work Phone: [facility] 01-09-2023 08:30-0500 Body height 157.48 cm Geo Mathew Other [facility] Other 01-09-2023 08:30-0500 Body mass index (BMI) [Ratio] 28.35 kg/m2 Geo Mathew Other [facility] Other 01-09-2023 08:30-0500 Body temperature 97.8 [degF] Geo Mathew Other [facility] Other 01-09-2023 08:30-0500 Body weight 70.31 kg Geo Mathew Other [facility] Other 01-09-2023 08:30-0500 Diastolic blood pressure 68 mm[Hg] Geo Mathew Other [facility] Other 01-09-2023 08:30-0500 SaO2% (BldA) [Mass fraction] 95 % Geo Mathew Other [facility] Other 01-09-2023 08:30-0500 Systolic blood pressure 112 mm[Hg] Geo Mathew Other [facility] Other 09-20-2021 13:00-0500 Body height 157.48 cm Geo Mathew Other [facility] Other 09-20-2021 13:00-0500 Body mass index (BMI) [Ratio] 31.09 kg/m2 Geo Mathew Other [facility] Other 09-20-2021 13:00-0500 Body weight 77.11 kg Geo Mathew Other [facility] Other 09-20-2021 13:00-0500 Diastolic blood pressure 69 mm[Hg] Geo Mathew Other [facility] Other 09-20-2021 13:00-0500 Systolic blood pressure 158 mm[Hg] Geo Mathew Other [facility] Other Encounters Encounter Date Encounter Type Care Provider Facility Start: 03-04-2024 End: 03-04-2024 ambulatory ALEXIS GILMORE Not Available Start: 02-18-2024 End: 02-18-2024 ambulatory ALEXIS GILMORE Not Available Start: 02-12-2024 End: 02-12-2024 ambulatory KELTON CEDEÑO Not Available Start: 01-15-2024 End: 01-15-2024 ambulatory ALEXIS GILMORE Not Available Start: 01-05-2024 End: 01-05-2024 ambulatory ALEXIS GILMORE Not Available Start: 12-19-2023 ambulatory ANABELLE RICH [facility] Start: 12-15-2023 End: 12-15-2023 ambulatory NIK BELL Not Available Start: 12-11-2023 End: 12-11-2023 ambulatory ALEXIS GILMORE Not Available Start: 12-11-2023 End: 12-11-2023 Office outpatient visit 15 minutes Alexis Gilmore DPM Work Phone: [facility] Comment on above: Diabetes mellitus du e to underlying condition with diabetic polyneuropathy, unspecified whether long-term insulin use (CMS/HCC) (Primary Dx); PVD (peripheral vascular disease) (CMS/HCC); Dry gangrene (CMS/HCC); Foot ulcer, left, with fat layer exposed (CMS/HCC) Start: 12-05-2023 Evaluation and management of inpatient [facility] Start: 12-04-2023 Evaluation and management of inpatient [facility] Start: 12-04-2023 Evaluation and management of inpatient [facility] Start: 12-03-2023 Evaluation and management of inpatient [facility] Start: 12-03-2023 End: 12-05-2023 Evaluation and management of inpatient ANDREW AUER [facility] Start: 11-27-2023 End: 11-27-2023 ambulatory ALEXIS GILMORE Not Available Start: 02-19-2023 End: 02-19-2023 Patient encounter procedure Sabrina Tobarlove [facility] Start: 02-19-2023 End: 02-19-2023 ambulatory II Nik Bell Work Phone: [facility] Other Start: 01-31-2023 End: 01-31-[address] NIK BELL Facility:[facility] Start: 01-13-2023 End: 01-13-2023 ambulatory Geo Mathew Facility:[facility] Start: 01-13-2023 End: 01-13-2023 Admission to same day surgery center II Nik Bell Work Phone: [facility] Work Phone: Start: 01-13-2023 End: 01-13-2023 ambulatory II Nik Bell Work Phone: [facility] Work Phone: Start: 01-09-2023 End: 01-09-2023 ambulatory Geo Mathew Other [facility] Other Start: 01-09-2023 Office outpatient ne w 60 minutes Geo Mathew [facility] Start: 12-30-2022 End: 12-31-2022 ambulatory ALEXIS GILMORE Facility:[facility] Start: 11-12-[address] DOCTOR CHAN Facility :[facility] Start: 08-17-2022 End: 08-18-[address] PANCHITO CHACON Facility:[facility] Start: 07-21-2022 End: 09-11-[address] NIK BELL Facility:[facility] Start: 07-04-2022 End: 07-07-[address] NIK BELL Facility:[facility] Start: 06-29-2022 End: 07-03-2022 Evaluation and management of inpatient CHASE AMAYA Facility:[facility] Start: 2022 End: [address] NIK BELL Facility:[facility] Start: 02-15-[address] NIK BELL Facilit y:[facility] Start: 09-20-2021 End: 09-20-2021 ambulatory Geo Mathew Other [facility] Other Start: 09-20-2021 Office outpatient vi sit 15 minutes Geo Mathew [facility] V[facility] Surgery Procedures Date Procedure Procedure Detail Performing Clinician Start: 06-04-2023 H/O: hysterectomy History of hysterectomy Alexis Bull PM Work Phone: Start: 01-13-2023 Lower limb angiography II Nik Bell Work Phone: Start: 08-23-2020 Mammography Alexis Gilmore DPM Work Phone: Plan of Treatment Date Care Activity Detail Author Start: 03-03-2024 Hemoglobin A1c measurement Diabetes: Hemoglobin A1C [facility] Start: 02-05-2024 End: 02-05-2024 Patient encounter procedure 02/05/2024 10:10 AM EDT Office Visit [facility] [address] [facility] [address] [place] [id number] Alexis Gilmore DPM [address] [facility] [address] [place] [address] [facility] Start: 12-15-2023 End: 12-15-2023 Patient encounter procedure 12/15/2023 2:30 PM EST Office Visit [facility] [address] [facility] [address] [place] [address] Nik Bell MD [address] [facility] [address] [place] [address] [facility] Start: 07-11-2023 Influenza vaccination Influenza Vaccine (#1) [facility] Start: 01-13-2023 [facility] Start: 01-09-2022 Glaucoma screening Diabetes: Retinopathy Screening [facility] Start: 10-06-2021 Pneumococcal Vaccine: 65+ Years (2 - PCV) Pneumococcal Vaccine: 65+ Years (2 - PCV) [facility] Start: 08-23-2021 Screening for malignant neoplasm of breast Mammogram [facility] Start: 01-17-2021 Urine screening for protein Diabetes: Urine Protein Screening [facility] Start: 1955 Medicare Annual Wellness (AWV) Medicare Annual Wellness (AWV) [facility] Patient Education Peripheral Art ansley Disease and Claudication Peripheral Vascular (Arterial) Disease (DC) [facility] Work Phone: [facility] referral [facility] Work Phone: Immunizations Immunization Date Immunization Notes Care Provider Fa [facility] 08-28-2022 Influenza, High-dose Seasonal, Quadrivalent, Preservative Free Alexis Gilmore DPM Work Phone: [facility] 08-28-2022 influenza virus vacc ine, unspecified formulation Alexis Gilmore DPM Work Phone: [facility] 09-05-2021 Influenza, Seasonal, Quadrivalent, Adjuvanted Alexis Gilmore DPM Work Phone: [facility] 10-06-2020 influenza, injectabl e, quadrivalent, preservative free Alexis Gilmore DPM Work Phone: [facility] 10-06-2020 pneumococcal polysaccharide vaccine, 23 valent Alexis Gilmore DPM Work Phone: [facility] 10-05-2020 influenza, high dose seasonal, preservative-free Alexis Gilmore DPM Work Phone: [facility] 08-10-2019 influenza, high dose seasonal, preservative-free Alexis Gilmore DPM Work Phone: [facility] 08-25-2018 seasonal influenza, intradermal, preservative free Alexis Gilmore DPM Work Phone: [facility] 09-24-2017 seasonal influenza, intradermal, preservative free Alexis Gilmore DPM Work Phone: [facility] 09-25-2016 influenza, injectabl e, quadrivalent, preservative free Alexis Brown DPM Work Phone: [facility] 09-25-2016 pneumococcal polysaccharide vaccine, 23 valent Alexis Gilmore DPM Work Phone: [facility] 10-02-2015 seasonal influenza, intradermal, preservative free Alexis Gilmore DPM Work Phone: [facility] 10-27-2014 influenza, injectabl e, quadrivalent, preservative free Alexis Gilmore DPM Work Phone: [facility] Payers Date Payer Category Payer Unknown BCBS BCBS [id number] 2022-Present [phone] [address] [place] [address] [id number] 2015 Medicare MEDICARE MEDICAR E PART B [id number] 2015-Present [address] [address] [place] [address] Medicare [id number] 1960 Medicare [id number] 1960 Self-pay [id number] 1959 Unknown [id number] 2.16. 840.1.188530.19 1959 Unknown [id number] 1954 Unknown [id number] 2.16.840.1.414829.3.579.2.647 1954 Unknown [id number] 2.16.840.1.251499.3.579.2.593 1954 Unknown [id number] 2.16.840.1.239412.3.579.2.593 1954 Unknown [id number] 2.16.840.1.544056.3.579.2.593 1954 Unknown [id number] 2.16.840.1.011319.3.579.2.593 1954 Unknown [id number] 2.16.840.1.566854.3.579.2.593 1954 Unknown [id number] 2.16.840.1.499531.3.579.2.593 1954 Unknown [id number] 2.16.840.1.503432.3.579.2.593 1954 Unknown [id number] 2.16.840.1.098860.3.579.2.593 1954 Unknown [id number] 2.16840.1.092331.3.579.2.1259 1954 Unknown [id number] 2.16.840.1.147185.3.579.2.1259 1954 Unknown [id number] 2.16.840.1.134147.3.579.2.1259 1954 Unknown [id number] 2.16.840.1.127494.3.579.2.1259 1954 Unknown [id number] 2.16840.1.958110.3.579.2.1259 1954 Unknown [id number] 2.16.840.1.159043.3.579.2.1259 1954 Unknown [id number] 2.16.840.1.374493.3.579.2.1259 1954 Unknown [id number] 2.16.840.1.662920.3.579.2.1259 Unknown [id number] 2.16.840.1.420017.3.579.2.531 Unknown [id number] 2.16.840.1.018715.3.579.2.531 Social History Date Type Detail Facility Start: 12-11-2023 Sex Assigned At N [employer] Other Start: 01-13-2023 End: 06-12-2023 Tobacco smoking status NHIS Never smoked tobacco (finding) [facility] Start: 1955 Sex Assigned At Female F [facility] Start: 12-11-2023 Alcohol intake Lifetime non-d maren (finding) [facility] Start: 12-11-2023 History of Social function [facility] Start: 1955 Sex Assigned At Not on file [facility] Goals Date Patient Goal Desired Activity /State Clinical Notes 09-20-2021 to 12-19-2023 Alexis Gilmore, KIKA - 12/11/2023 4:30 PM EST Note Date [...] 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 Denies any significant pain or pulsatility to [...] for this visit: PAD (peripheral artery disease) ([facility]) -Patient with reperfusion edema to [...] past 36 hour(s)). No follow-ups on file. [facility] 12-11-2023 History of Present illness Narrative [...] left leg and patient was transferred to [facility] where she had it angioplasty procedure with increased blood flow noted by patient. She has a type 2 diabetic and presents today for follow up in office. Allergies: Allergies Allergen Reactions Penicillins Hives childhood-swelling Past Medical History: Past Medical History: Diagnosis Date A-fib [place] 2022 with RVR Anxiety Aortic stenosis 06/2022 Carotid artery disease ([facility] CHF (congestive heart failure) ([facility] 06/2022 Colon polyp 2016 Diverticulitis DM (diabetes mellitus) ([facility] HLD (hyperlipidemia) ([facility] HTN (hypertension) ([facility]) SD (myocardial infarction) ([facility] NSTEMI, initial episode of care ([facility] 2022 Medications: Current Outpatient Medications: amLODIPine (Norvasc) [...] positive edema to left foot NEURO: 5.07 [place] monofilament test diminished to digits and forefoot bilaterally 125Hz tuning fork diminished to 1st MPJ bilaterally ORTHO: Minimal pain on palpation to left foot ulcer BRIDGER PVR non readable findings to the left with non pulsatile flow and right of 0.53 DP ASSESSMENT 1. 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 PVD (peripheral vascular disease) ([facility]) 3. Dry gangrene ([facility]) 4. Foot ulcer, left, with fat layer exposed ([facility]) PLAN Sharp debridement with 15 blade of subcutaneous ulceration to left foot with active bleeding noted and removal and excision of fibrotic and necrotic tissue to wound and DSD applied with neosporin. Pt to continue with Betadine daily Reviewed BRIDGER PVRs and patient is to follow up with [facility] for right foot in near future and continue with wound care until follow up in 1 week Alexis Gilmore DPM documented in this encounter [facility] 12-05-2023 Note Hospital Medicine Discharge Summary Final Discharge Diagnosis: # critical limb ischemia , right lower extremity # lower extremity claudication, bilateral # nonoliguric EVA # Atrial fibrillation on Eliquis # coronary artery disease status post CABG # uncontrolled diabetes mellitus type 2 # Hyponatremia Admission Diagnosis: Hyponatremia [E87.1] PAD (peripheral artery disease) ([facility]/HCC) [I73.9] Numbness of left lower extremity [R20.0] [...] December 05, 2023. Dear Dr. Ray MD, Marimar is advised to follow up with you within 1-2 weeks. Follow-up with: Vascular Surgery Scheduled appointments: Future Appointments Date Time Provider Department Center 12/19/2023 11:00 AM [facility] Your medication list START taking these medications [...] Your Medications These medications were sent to [id number] [address] clopidogrel 75 mg tablet oxyCODONE-acetaminophen 5-325 mg [...] and care-team, med- (more content not included)... [facility] 12-05-[address] [facility] Vascular Surgery DAILY PROGRESS NOTE Subjective [...] be discharged once the ultrasound is done. [facility] 12-05-2023 Note Clinical Nutrition A ssessment: Name: Marimar Patel Room: [address] [place] [address] Date: 1955 Date of Visit: 12/05/23 Admission Dx: Hyponatremia [E87.1] PAD (peripheral artery disease) ([facility]) [I73.9] Numbness of left lower extremity [R20.0] Reason for assessment: high risk Information obtained from: patient, medical record, and nursing Past Medical History: Diagnosis Date A-fib ([facility]) Aortic valve stenosis Coronary artery disease Diabetes mellitus ([facility]) Hypertension Peripheral vascular disease ([facility]) Current Medications: aspirin, 81 mg, [...] 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 Pt [...] ideal body weight (50 kg) Calorie needs: 5852-3166 kcals/day based on Equation: 25-30 kcal/kg Protein [...] Academy of Nutrition and Dietetics, and the [place] Society of Enteral and Parenteral Nutrition to suppo (more content not included)... [facility] 12-05-2023 Note Occupational Therapy Occupational Therapy [...] aortic valve stenosis Coronary artery disease involving assiniboine and gros ventre tribes coronary artery of assiniboine and gros ventre tribes heart with angina pectoris ([facility]/HCC) PAF (paroxysmal atrial fibrillation) (CMS/HCC) Essential hypertension PAD (peripheral artery disease) (CMS/HCC) Numbness of left lower extremity Past Medical History: Diagnosis Date A-fib ([facility]) Aortic valve stenosis Coronary artery disease Diabetes mellitus (CMS/HCC) Hypertension Peripheral vascular disease (CMS/HCC) Past Surgical History: Procedure Laterality Date APPENDECTOMY [...] Level of Function Prior Function Level of [place]: Independent with ADLs and functional transfers Prior [...] Sensation Light T (more content not included)... [facility] 12-04-2023 Note Patient: Marimar mccain Procedure Summary Date: 12/04/23 Room / Location: [facility] OR [address] [place] [address] / [facility] Operating Room Anesthesia Start: 1350 Anesthesia Stop: 1625 Procedures: LEFT LOWER EXTREMITY ANGIOGRAM (Left) AORTOGRAM LEFT LOWER EXTREMITY JETSTREAM AND ATHERECTOMY/THROMBECOMY LEFT LOWER EXTREMITY DRUG COATED BALLOON ANGIOPLASTY OF SFA AND POLITEAL ARTERIES LEFT LOWER EXTREMITY DISTAL SFA AND POPLITEAL COVERED STENTING Diagnosis: PAD (peripheral artery disease) ([facility]) (PAD (peripheral artery disease) (CMS/[facility]) [I73.9]) Surgeons: Jennifer Vaca MD [...] per anesthesia protocol. No notable events documented. [facility] 12-04-2023 Note Patient: Marimar mccain Procedure Summary Date: 12/04/23 Room / Location: [facility] OR [address] [place] [address] / [facility] Operating Room Anesthesia Start: 1350 Anesthesia Stop: Procedures: LEFT LOWER EXTREMITY ANGIOGRAM (Left) AORTOGRAM LEFT LOWER EXTREMITY JETSTREAM AND ATHERECTOMY/THROMBECOMY LEFT LOWER EXTREMITY DRUG COATED BALLOON ANGIOPLASTY OF SFA AND POLITEAL ARTERIES LEFT LOWER EXTREMITY DISTAL SFA AND POPLITEAL COVERED STENTING Diagnosis: PAD (peripheral artery disease) ([facility]/HCC) (PAD (peripheral artery disease) ([facility]/HCC) [I73.9]) Surgeons: Jennifer Vaca MD Responsible Provider: Charlene Jimenez MD Anesthesia Type: general ASA Status: 3 Anesthesia Post Transport Note Transport to: PACU O2 Route: face mask Oxygen Flow (L/min): 8 Patient Monitor: direct observation Transport: uneventful Patient condition is: stable [facility] 12-04-2023 Note Patient: Marimar mccain Procedure Information Anesthesia Start Date/Time: 12/04/23 1350 Procedure: Lower extremity angiogram (Left) - LLE angiogram possible intervention Location: [address] / [facility] Operating Room Surgeons: Jennifer Vaca MD Relevant Problems Cardio (+) Coronary artery disease involving assiniboine and gros ventre tribes coronary artery of assiniboine and gros ventre tribes heart with angina pectoris ([facility]) (+) Essential hypertension (+) Nonrheumatic aortic valve stenosis (+) PAD (peripheral artery disease) ([facility]) (+) PAF (paroxysmal atrial fibrillation) ([facility]) Clinical information reviewed: Tobacco Allergies [...] Plan discussed with attending. Additional Equipment Requests [facility] 12-04-2023 Note Airway Date/Time: 12/04/2023 1:58 PM Urgency: elective Airway not difficult General Information and Staff Patient location during procedure: OR Anesthesiologist: Charlene Jimenez MD Resident/AIR CONTROL/ANTI AIR WARFARE OFFICER/CAA: Deep Bolton CRNA Performed: resident/AIR CONTROL/ANTI AIR WARFARE OFFICER/CAA Indications and Patient Condition Indications for airway [...] Additional Comments 4ml 4% lidocaine lta utilized [facility] 12-04-2023 Note Hospital Medicine Daily Progress Note - 12/04/2023 12:06 PM; Room: [address] [place] [address] Admission: 12/03/2023 4:20 PM; Length of stay: 1 days THE HOSPITALIST TEAM PREFERS TO USE [employer] FOR COMMUNICATION 7AM-7PM. IF I DO NOT RESPOND WITHIN 15 MINUTES, PLEASE PAGE ME/CALL THROUGH THE SMALL ENGINE SPECIALIST. FROM 7PM-7AM, PLEASE PAGE [phone](COVR) Code Status: Full Code Barriers to Discharge: [...] extremity Active Problems: PAD (peripheral artery disease) ([facility]) Assessment and Plan 1. Right [...] last 7 days Lab Units 12/04/23 0649 12/03/233 POCT GLUCOSE mg/dL 284* 337* Historical Values: (Includes values prior to this admission) Lab Results Component Value Date TSH 1.96 2022 HDL 28 2022 LDL 138 (H) 2022 LDL 195 2022 No results found for: [id number] , IRON , TIBC , C3 , [...] Does the pa (more content not included)... [facility] 12-03-2023 Note Pharmacy completed a medication reconciliation for Marimar Patel. Patient is a 68 y.o. year old female, 1.575 m (5' 2 ) cm, 72.6 kg (160 lb) kg, CrCl= Estimated Creatinine Clearance: 29.5 mL/min (A) (by C-G formula based on SCr of 1.68 mg/dL (H)). mL/minute. Patient has allergies to: Penicillin and Penicillins . Pt fills at [facility] [phone]. Medication list was obtained from patient's fill history list and patient (pt stated that her knows the medication better but he is not in the room). Home medication list has been updated. Please call pharmacy with any questions. Thank you! Confirmed that patient was doing basaglar 80 units at night (Rx said 86 units) Thanks, Magcorie Nash, PharmD, 12/03/23 [facility] 12-03-2023 Note 12/03/232003 Financial Resource Strain [...] than 3 How often do you attend taoist or adventist services? Never Do you belong to any clubs or organizations such as taoist groups, unions, fraternal or athletic groups, or [...] In the past 12 months has the [employer], gas, oil, or water [employer] threatened to shut off services in your home? 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 Reason Psychosocial assessment Patient Information Primary Caregiver Self Accompanied by/Relationship Activities of Daily Living Assistive Device Cane;Walker (Uses sometimes) Living Arrangement (Current/Prior to Hospitalization) Private residence (Lives at home with and son) Ambulation Minimum assistance (Uses walker or cane sometimes) Dressing Independent Feeding Independent Behavior Oriented Communication Can write;Talks;Understands speaking;Understands British;Reads Income Information Income Source Unemployed Discharge Planning [...] system as her friends, her , her [id number], and her son. Patient endorsed that she [...] past year and denied any alcohol consumption. [facility] 02-19-2023 Evaluation note Encounter Date Diagnosis [...] office sooner with any issues or concerns. [facility] Other 03-24-2023 NotePROCEDURE: XR WRIST LT MIN 3 V HISTORY: Pain after falling COMPARISON: None. FINDINGS: BONES:No fracture, acute abnormality, or significant arthropathy. SOFT TISSUES:Multiple skin jose within soft tissues lateral to the distal forearm. EFFUSION:None visible. OTHER: Negative. IMPRESSION: 1. No acute bone abnormality. 2. Multifocal mild degenerative joint disease. Electronically authenticated by: GERMAIN COY Date: 2023-01-31 13:[address] [place], [place] 3647303-06-2023 Procedure [facility] 01-09-2023 Evaluation note* Encounter Date Diagnosis Assessment [...] clinical exam. I do not have the [place] studies yet. We will reach out to [...] was obtained all her questions were addressed. [facility] Other 08-25-2022 NoteMR#: [id number] I [facility] Pt. Name: Marimar Patel Admitted: 2022 [...] P/Chase Amaya MD Date Trans: 07/03/2022 11:43 P/mmo [id number] cc: Nik Bell M.D. [address] [facility] [address]* Encounter Date Diagnosis Assessment Notes [...] plan all of her questions were addressed. [facility] Other Evaluation noteNo assessment information available [facility] Work Phone: Evaluation note* Diagnosis Diabetes mellitus due to underlying condition with diabetic polyneuropathy, unspecified whether long-term insulin use ([facility])- Primary PVD (peripheral vascular disease) ([facility]) Unspecified peripheral vascular disease Dry gangrene ([facility]) Foot ulcer, left, with fat layer exposed ([facility]) [facility] N[facility] - Reported* Type Description Date Medical History carotid stenosis Medical History diverticulitis Medical History SD Medical History DM Medical History hyperlipidemia Medical History HTN Surgical History cholecystectomy Surgical History tonsillectomy Surgical History CABGx2 Surgical History hernia repair Surgical History appendectomy Surgical History quad bypass 2013 Hospitalization History see surgical hx [facility] Other History general Narrative - Reported* Type Description Date Medical History carotid stenosis Medical History diverticulitis Medical History SD Medical History DM Medical History hyperlipidemia Medical History HTN Surgical History cholecystectomy Surgical History tonsillectomy Surgical History CABGx2 Surgical History hernia repair Surgical History appendectomy Surgical History quad bypass 2012 Surgical History Cardiac Stent 2022 Hospitalization History see surgical hx [facility] Other Summary Purpose Family History No Family [...] DATE CREATED AUTHOR 07/13/2022 [facility] DATE CREATED AUTHOR AUTHOR'S ORGANIZ ATION 02/04/2023 [facility] DATE CREATED AUTHOR AUTHOR'S ORGANIZ ATION 03/01/2023 [facility] DATE CREATED AUTHOR AUTHOR'S ORGANIZ ATION 01/08/2024 [facility] DATE CREATED AUTHOR AUTHOR'S ORGANIZ ATION 03/06/2024 [facility] d[facility] Specialists [employer] Care Teams (unrecognized sec tion and content) Team Status: Active Member Role Status Dates Nik Bell II MD Primary Care Provider Active Team Status: Inactive Member Role Status Dates Nik Bell II MD Primary Care Provider Active Geo Mathew MD Attending Provider Active 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 [facility]. provides no warranty or guarantee of the accuracy or completeness of information in this document.
--- NOTE | 2024-03-11 08:00 | CA_ITS ---
Patient Name: MARIMAR MCDANIEL MR#: [id number] : 1955 Exam Date: 03/11/2024 Ordering Doctor: DR PANCHITO TRINIDAD M.D. ECHOCARDIOGRAM REPORT PROCEDURE: CA ECHO DOPPLER COMPLETE INDICATIONS: Atrial fibrillation, bioprosthetic aortic valve, CABGx4, hypertension, diabetes COMPARISON: None. DESCRIPTION: COMPLETE ECHOCARDIOGRAM Real-time transthoracic echocardiography with 2D, M-mode, spectral and color flow Doppler performed. QUALITY: Technical quality was good. 62 , 162#, BSA 1.75 m2, BP 158/70 LEFT VENTRICLE: Normal chamber size. Thickened septal wall. LV EF: Global left ventricular systolic function is normal; visually estimated ejection fraction is 60 to 65%. No significant wall motion abnormalities. DIASTOLIC: Grade 2, moderate diastolic dysfunction. E/E' suggests volume overload. ATRIAL SEPTUM: Visually appears intact. LEFT ATRIUM: Moderate dilatation. RIGHT ATRIUM: Mild dilatation. RIGHT VENTRICLE: Normal chamber size. Normal right ventricular systolic function. TRICUSPID VALVE: Normal mobility and thickness. No stenosis with mild regurgitation. Doppler studies reveal mildly (35-45) elevated right sided pressures. RVSP 44 mmHg MITRAL VALVE: Moderately thickened. Mild mitral valve stenosis. Elevated velocities across the mitral valve may be related to volume overload. Moderate mitral annular calcification. Mild mitral regurgitation. AORTIC VALVE: Bio-Prosthetic valve appears well seated in the aortic position with normal Doppler flow. No aortic regurgitation. AORTIC ROOT: Normal diameter and appearance. PULMONIC VALVE: Normal thickness and mobility. No stenosis. Trivial regurgitation. PERICARDIUM: No evidence of pericardial effusion. IVC: Collapses with inspirations. IVC is normal in size. CONCLUSION: 1. Global left ventricular systolic function is normal; visually estimated ejection fraction is 60 to 65% 2. Normal right ventricular size and systolic function 3. Grade 2 moderate diastolic dysfunction 4. Biatrial enlargement 5. Mild tricuspid regurgitation 6. Mildly elevated right ventricular systolic pressure; RVSP 44 mmHg 7. Mild mitral stenosis; velocities and gradients may be overestimated due to volume overload 8. Mild mitral regurgitation 9. A bioprosthetic aortic valve is seen with normal Doppler flow; no significant valvular or perivalvular regurgitation 10. E/E' suggests volume overload Adult Echocardiography Procedure Report Left Ventricle LVEDD (3.7 - 5.6 cm): 3.53 cm LVESD (2.2 - 4.0 cm): 3.10 cm LVIVS thickness (0.6 - 1.2 cm): 1.39 cm LVPW thickness (0.5 - 1.0 cm): 0.82 cm e': 0.08 m/s E - e': 15.00 LVOT Max Gradient: 6.45 mm[Hg] LVOT Area (cm2): 1.27 m/s Peak Velocity (LVOT): 1.27 m/s Mean Velocity (LVOT): 0.83 m/s LVOT Diameter 1.56 cm Left Atrium LA Volume Index (2D A2C): 43.84 ml/m2 Left Atrium Systolic Dimension: 4.24 cm Mitral Valve MV E to A Ratio: 1.12 Mitral Valve A-Wave Peak Velocity: 1.03 m/s Mitral Valve E-Wave Peak Velocity: 1.16 m/s Right Ventricle Aorta AO Root Diam: 3.39 cm Aortic Valve AoV Area (Peak Morgan): 1.17 cm2, 1.17 cm2 AoV Area (VTI): 1.23 cm2, 1.23 cm2 Peak Velocity(Antegrade Flow): 2.07 m/s Peak Gradient(Antegrade Flow): 17.07 mm[Hg] Mean Velocity(Antegrade Flow): 1.26 m/s Mean Gradient(Antegrade Flow): 7.61 mm[Hg] Velocity Time Integral: 54.10 cm Tricuspid Valve Peak Velocity (Regurgitant Flow): 3.20 m/s, 2.88 m/s Pulmonic Valve Mean Gradient: 3.29 mm[Hg] Mean Velocity: 0.85 m/s Peak Velocity: 1.13 m/s, 1.14 m/s Peak Gradient: 5.24 mm[Hg], 5.08 mm[Hg] Right Atrium Right Atrium Systolic Pressure: 44.37 ml, 44.37 ml Dictated by: Hero Rendon M.D. on 03/11/2024 at 15:52 Approved by: Hero Rendon M.D. on 03/11/2024 at 15:57
--- NOTE | 2024-03-11 09:00 | CA_ITS ---
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 Order Number: [id number] Reading MD: LIZETTE MCGHEE Interpretive Statements Monophasic doppler waveforms PVR waveforms with delayed upstroke, blunted amplitude and loss of dicrotic notch. 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 (right BRIDGER 0.71) - Significant left femoropopliteal and outflow (tibioperoneal) arterial disease with moderate hemodyanamic impairment of the left lower extremity at rest. (left BRIDGER 0.72) - Decreased B/L TBI confirms poor circulation to B/L lower extremities Electronically Signed On 03-11-2024 15:24:41 EDT by LIZETTE MCGHEE
== END 2024-03-11 07:53 | disposition home or self-care (01) ==
LOC: CARD 07:53
PROVIDERS: PCP Internal Medicine; Visit Provider Internal Medicine Interventional Cardiology
DX: I73.9 Peripheral vascular disease, unspecified (principal); Z95.2 Presence of prosthetic heart valve; I48.0 Paroxysmal atrial fibrillation
CPT/HCPCS: 93306; 93923

== ENCOUNTER 2024-05-04 17:32 | Emergency (ER) | payer MEDICARE, BC, SELFPAY ==
[2024-05-04 17:40] VITALS: BP 178/82; PULSE 70; TEMP 36.6; O2SAT 97; BMI 29.3
--- OUTSIDE RECORDS SUMMARY | 2024-05-04 18:01 | XMS_ITS ---
Patient Summarization (C-CDA 2.1 CCD) Created on: May 04, 2024 MARIMAR PATEL Josep : 1955 Sex: Female Author Organization Sample organization Care Team Providers Care Web Content Executive Name Role Phone Geo Mathew Unavailable CHASE [...] Primary Care Unavailable ALEXIS GILMORE Consulting Unavailable MOUKARBEL, DR FLANAGAN Admitting Unavailable MOUKARBEL, DR FLANAGAN Attending Unavailable RAY, DR OAKES Primary Care Unavailable MOUKARBTABATHA, DR FLANAGAN Consulting Unavailable RAY, DR OAKES [...] Care Provider MD Geo Mathew Attending Provider [phone] Geo Mathew Admitting Unavailabl declan Mathew, Geo Yarbrough Attending UnavailNik Argueta Primary Care Unavailable Geo Mathew Admitting Unavailabl e Priyanka, Geo Yarbrough Attending Unavailabl Nik Ngo Primary Care Unavailable Nik Bell MD Primary Care Provider PANCHITO CHACON Attending Unavailable NAZZAL, MUNIER Referring Unavailable NAZZAL, MUNIER Referring Unavailable JUSTINE, SARMED Referring Unavailable JUSTINE, SARMED Referring Unavailable AURE, ANDREW Admitting Unavailable JUSTINE, SARMED Attending Unavailable ANABELLE RICH Attending Unavailable ALEXIS GILMORE Attending Unavailable ALEXIS GILMORE Attending Unavailable NIK BELL Attending Unavailable MANDO, ALEXIS Smart Attending Unavailable MANDO, ALEXIS Smart Attending Unavailable KELTON CEDEÑO Attending Unavailable MANDO, ALEXIS Smart Attending Unavailable GALA, KELTON Aceves Attending Unavailable GALA, KELTON Aceves Attending Unavailable Allergies Allergy Classification Reported Allergen(s) Allergy Type Date of Onset Reaction(s) Facility (1 source) [facility] Other (5 sources) Penicillins; Translations: [PENICILLINS] Drug allergy (disorder) 09-20-2009 [facility] Repository (3 sources) Penicillin; Translations: [PENICILLIN] Drug Allergy 07-19-2022 [facility] Repository (1 source) Penicillins Drug allergy (disorder) 01-10-2023 [facility] Repository (2 sources) Penicillins Drug Allergy 10-28-2014 [facility] Healthcare Encounters Encounter Date Encounter Type Care Provider Facility Start: 04-01-2024 End: 04-01-2024 ambulatory KELTON CEDEÑO Not Available Start: 03-18-2024 End: 03-18-2024 ambulatory KELTON CEDEÑO Not Available Start: 03-04-2024 End: 03-04-2024 ambulatory ALEXIS GILMORE Not Available Start: 02-18-2024 End: 02-18-2024 ambulatory ALEXIS GILMORE Not Available Start: 02-13-2024 End: 02-13[facility]20[facility] Start: 02-12-2024 End: 02-12-2024 ambulatory KELTON Aceves GALA Not Available Start: 01-15-2024 End: 01-15-2024 ambulatory ALEXIS GILMORE Not Available Start: 01-05-2024 End: 01-05-2024 ambulatory ALEXIS GILMORE Not Available Start: 12-19-2023 ambulatory ANABELLE RICH [facility] Start: 12-15-2023 End: 12-15-2023 ambulatory NIK Carter RAY Not Available Start: 12-11-2023 End: 12-11-2023 ambulatory ALEXIS GILMORE Not Available Start: 12-11-2023 End: 12-11-2023 Office outpatient visit 15 minutes Alexis Gilmore DPM Work Phone: [facility] Comment on above: Diabetes mellitus du e to underlying condition with diabetic polyneuropathy, unspecified whether medical terminologist insulin use (CMS/HCC) (Primary Dx); PVD (peripheral vascular disease) (CMS/HCC); Dry gangrene (CMS/HCC); Foot ulcer, left, with fat layer exposed (CMS/HCC) Start: 12-05-2023 Evaluation and management of inpatient [facility] Start: 12-04-2023 Evaluation and management of inpatient [facility] Start: 12-04-2023 Evaluation and management of inpatient [facility] Start: 12-03-2023 Evaluation and management of inpatient [facility] Start: 12-03-2023 End: 12-05-2023 Evaluation and management of inpatient [facility] Start: 11-27-2023 End: 11-27-2023 ambulatory ALEXIS GILMORE Not Available Start: 02-19-2023 End: 02-19-2023 Patient encounter procedure Sabrina Borden [facility] Start: 02-19-2023 End: 02-19-2023 ambulatory MONSE Nik Bell Work Phone: [employer] Other Start: 01-31-2023 End: 01-31-[address] NIK BELL Facility:[facility] Start: 01-13-2023 End: 01-13-2023 ambulatory Geo Mathew Facility:[facility] Start: 01-13-2023 End: 01-13-2023 Admission to same day surgery center II Nik Bell Work Phone: [facility] Work Phone: Start: 01-13-2023 End: 01-13-2023 ambulatory MONSE Nik Bell Work Phone: [facility] Work Phone: Start: 01-09-2023 End: 01-09-2023 ambulatory Geo Mathew Other [employer] Other Start: 01-09-2023 Office outpatient ne w [...] Evaluation and management of inpatient CHASE AMAYA Facility:[facility] Start: 2022 End: [address] NIK BELL Facility:[facility] Start: 02-15-[address] NIK BELL Facilit y:[facility] Start: 09-20-2021 End: 09-20-2021 ambulatory Geo Mathew Other [employer] Other Start: 09-20-2021 Office outpatient vi sit 15 minutes Geo Mathew [facility] Goals Date Patient Goal Desired Activity /State Immunizations Immunization Date Immunization Notes Care Provider Reji roberts 08-28-2022 Influenza, High-dose Seasonal, Quadrivalent, Preservative Free Alexis Gilmore DPM Work Phone: [facility] 08-28-2022 influenza virus vacc ine, unspecified formulation Alexis Mando DPM Work Phone: [facility] 09-05-2021 Influenza, Seasonal, Quadrivalent, Adjuvanted Alexis Mando DPM Work Phone: [facility] 10-06-2020 influenza, injectabl e, quadrivalent, preservative free Alexis Brown DPM Work Phone: [facility] 10-06-2020 pneumococcal polysaccharide vaccine, 23 valent Alexis Brown DPM Work Phone: [facility] 10-05-2020 influenza, high dose seasonal, preservative-free Alexis Brown DPM Work Phone: [facility] 08-10-2019 influenza, high dose seasonal, preservative-free Alexis Brown DPM Work Phone: [facility] 08-25-2018 seasonal influenza, intradermal, preservative free Alexis Brown DPM Work Phone: [facility] 09-24-2017 seasonal influenza, intradermal, preservative free Alexis Brown DPM Work Phone: [facility] 09-25-2016 influenza, injectabl e, quadrivalent, preservative free Alexis Brown DPM Work Phone: [facility] 09-25-2016 pneumococcal polysaccharide vaccine, 23 valent Alexis Brown DPM Work Phone: [facility] 10-02-2015 seasonal influenza, intradermal, preservative free Alexis Brown DPM Work Phone: [facility] 10-27-2014 influenza, injectabl e, quadrivalent, preservative free Alexis Brown DPM Work Phone: [facility] Healthcare Medications Current Medications Medication Drug Class(es) [...] 2 diabetes mellitus with hyperglycemia, unspecified whether [facility] insulin use (CMS/HCC) INJECT 86 UNITS UNDER [...] 1 tablet Orally Once a day Not-Taking P-Keifztlfvnlz-C4-B1 2 3-35-2 MG (3 sources) take 1 tablet by mouth twice daily P-Ploslvmogwvx-G6-B1 2 3-35-2 MG 1 tablet Orally Twice [...] Benefiber - as d irected Orally Active Payers Date Payer Category Payer Unknown BCBS BCBS xxxxxx [id number] 2022-Present [phone] [address] [place] [address] [id number] 2015 Medicare MEDICARE MEDICAR E PART B [id number] 2015-Present [address] [address] [place] [address] Medicare [id number] 1959 Medicare [id number] 1959 Self-pay [id number] [phone] [id number] 1959 Unknown [id number] 2.16. [id number] 1959 Unknown [id number] 1955 Unknown [id number] 2.16.840.1.540375.3.579.2.647 1955 Unknown [id number] 2.16.840.1.542008.3.579.2.593 1955 Unknown [id number] 2.16.840.1.022326.3.579.2.593 1954 Unknown [id number] 2.16.840.1.737593.3.579.2.593 1954 Unknown [id number] 2.16.840.1.312720.3.579.2.593 1954 Unknown [id number] 2.16.840.1.800722.3.579.2.593 1954 Unknown [id number] 2.16.840.1.201550.3.579.2.593 1954 Unknown [id number] 2.16.840.1.139493.3.579.2.593 1954 Unknown [id number] 2.16.840.1.637436.3.579.2.593 1954 Unknown [id number] 2.16.840.1.842884.3.579.2.125 1954 Unknown [id number] 2.16.840.1.809263.3.579.2.125 1954 Unknown [id number] 2.16.840.1.516704.3.579.2.1259 1954 Unknown [id number] 2.16.840.1.425544.3.579.2.125 1954 Unknown [id number] 2.16.840.1.485887.3.579.2.1259 1954 Unknown [id number] 2.16.840.1.146848.3.579.2.1259 1954 Unknown [id number] 2.16.840.1.101401.3.579.2.1259 1954 Unknown [id number] 2.16.840.1.224159.3.579.2.1259 1954 Unknown [id number] 2.16.840.1.605247.3.579.2.1259 1954 Unknown [id number] 2.16.840.1.735077.3.579.2.1259 Unknown [id number] 2.16.840.1.748276.3.579.2.531 Unknown [id number] 2.16.840.1.166433.3.579.2.531 Plan of Treatment Date Care Activity Detail Author Start: 03-03-2024 Hemoglobin A1c measurement Diabetes: Hemoglobin A1C [facility] Start: 02-05-2024 End: 02-05-2024 Patient encounter procedure 02/05/2024 10:10 AM EDT Office Visit [facility] [address] [facility] [address] [place] [address] Alexis Gilmore DPM [address] [facility] [address] [place] [address] [facility] Start: 12-15-2023 End: 12-15-2023 Patient encounter procedure 12/15/2023 2:30 PM EST Office Visit [facility] [address] [facility] [address] [place] [address] Nik Bell MD [address] [facility] [address] [place] [address] [facility] Start: 07-11-2023 Influenza vaccination Influenza Vaccine (#1) [facility] Start: 01-13-2023 [facility] Start: 01-09-2022 Glaucoma screening Diabetes: Retinopathy Screening [facility] Start: 10-06-2021 Pneumococcal Vaccine: 65+ Years (2 - PCV) Pneumococcal Vaccine: 65+ Years (2 - PCV) [facility] Start: 08-23-2021 Screening for malignant neoplasm of breast Mammogram [facility] Start: 01-17-2021 Urine screening for protein Diabetes: Urine Protein Screening [facility] Start: 1955 Medicare Annual Wellness (AWV) Medicare Annual Wellness (AWV) [facility] Healthcare Patient Education Peripheral Art ansley Disease and Claudication Peripheral Vascular (Arterial) Disease (DC) [facility] Work Phone: Patient referral [facility] Work Phone: Problems Active Problems Problem Classification Problem Date Documented Da te Episodic/Chronic Acute myocardial infarction (2 sources) Non-ST elevation (NSTEMI) myocardial infarction; Translations: [NON-ST ELEVATION MYOCARDIAL INFARCT] Onset: 2 Chronic Anxiety disorders (2 sources) Generalized anxiety disorder; Translations: [Generalized anxiety disorder] Onset: 3 06-04-2023 Chronic Asthma (4 sources) Asthmatic bronchitis; Translations: [Unspecified asthma, uncomplicated] Onset: 8 06-24-2023 Chronic Cardiac dysrhythmias (5 sources) Unspecified atrial fibrillation; Translations: [Paroxysmal atrial [...] Chronic Coronary atherosclerosis and other heart disease (5 sources) Atherosclerotic heart disease of [place] coronary artery without angina pectoris; Translations: [Coronary atherosclerosis] Onset: 2 06-04-2023 Chronic Coronary atherosclerosis and other heart disease (2 sources) Coronary atherosclerosis and other heart disease; Translations: [Atherosclerosis of [place] arteries of extremities with intermittent claudication, left [...] WITHOUT ESOPHAGITIS] Onset: 2 Chronic Essential hypertension (5 sources) Essential (primary) hypertension; Translations: [Benign essential hypertension] Onset: 2 06-04-2023 Chronic Gangrene (4 sources) Gangrenous disorder; Translations: [Gangrene, [...] [HEADACHE UNSPECIFIED] Onset: 3 Heart valve disorders (9 sources) Nonrheumatic aortic (valve) stenosis; Translations: [Aortic [...] Onset: 2 Chronic Other aftercare (1 source) [facility] (current) use of anticoagulants; Translations: [LONGTERM CURRNT USE ANTICOAGULANTS] Onset: 3 Episodic Other aftercare (1 source) Other [place] [facility] (current) drug therapy; Translations: [OTH LONGTERM CURRENT DRUG THERAPY] Onset: 3 Episodic Other aftercare (1 source) [facility] (current) use of antithrombotics/antipl atelets; Translations: [LONGTERM ANTITHROMBOT/ANTIPLATL ETS] Onset: 3 Episodic Other aftercare (1 source) 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; Translations: [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] Onset: 3 Episodic Other aftercare (1 source) [facility] (current) use of aspirin; Translations: [LONGTERM CURRENT USE OF ASPIRIN] Onset: 3 Episodic Other gastrointestinal disorders (2 sources) Irritable bowel syndrome; Translations: [Irritable bowel syndrome without diarrhea] Onset: 3 06-04-2023 Chronic Other injuries and conditions due to external causes (1 source) Other specified injuries of head, initial encounter; Translations: [OTH SPEC INJURIES HEAD INITIAL ENC] Onset: 3 Episodic Other non-traumatic joint disorders (1 source) [...] [IRON DEFICIENCY ANEMIA UNSPECIFIED] Onset: 07-10-2022 Episodic Fluid and electrolyte disorders (2 sources) Hypo-osmolality and hyponatremia; Translations: [Hypo-osmolality and hyponatremia] Onset: 12-03-2023 Episodic Nonspecific chest pain (5 sources) Chest [...] Hypoxemia; Translations: [HYPOXEMIA] Onset: 07-10-2022 Episodic Other nervous system disorders (2 sources) Anesthesia of skin; Translations: [Anesthesia of skin] Onset: 12-03-2023 Episodic Other nutritional; endocrine; and metabolic disorders [...] [UTI SITE NOT SPECIFIED] Onset: 07-10-2022 Episodic Procedures Date Procedure Procedure Detail Performing Clinician Start: 06-04-2023 H/O: hysterectomy History of hysterectomy Alexis Bull PM Work Phone: Start: 01-13-2023 Lower limb angiography II Nik Bell Work Phone: Start: 08-23-2020 Mammography Alexis Gilmore DPM Work Phone: Results Test Name Value Interpretation Reference Range Facility 3603-19-2024 36 Lm to return my call Normal [facility] 3603-17-2024 36 Regarding echo performed on 03/11/2024: MD Maria Antonia Pisano MA Please tell her the echo showed normal function of the TAVR valve with evidence of extra fluid in the body, I want her to add furosemide 20 mg daily. LM for patient to return my call. Also LM on mobile number. Normal [facility] 36 Pt already taking 40 mg daily sent this to [facility] Office Visiton 02-13-2024 Follow-up visit [id number] Pancho Patel ie L 1955 F Date Provider Department Center 02/13/2024 PANCHITO BALTAZAR [facility] Family History Problem Relation Age of Onset Diabetes Mother Cancer Mother Heart disease Father Alcohol abuse Brother Diabetes Brother Family Status - Relation Status Age at Mother Father Brother Level of Service:[address] [place] OFFICE/OUTPATIENT ESTABLISHED MOD MDM 30 MIN Reason for Visit and Comments: Follow-up [673989] - 1.5 year follow up Recently in ER [facility] 36on 01-01-[address] [facility] Follow-Upon 12-19-2023 Follow-Up [id number] Pancho Patel ie L 1955 F Date Provider Department Center 12/19/2023 ANABELLE CLAUDIO [facility] Family History Problem Relation Age of Onset Diabetes Mother Cancer Mother Heart disease Father Alcohol abuse Brother Diabetes Brother Family Status - Relation Status Age at Mother Father Brother Level of Service:86385 [place] OFFICE/OUTPATIENT ESTABLISHED LOW MDM 20 MIN Reason for Visit and Comments: Hospital Follow-up [832] - 12/04/[address] [facility] 30on 12-05-2023 30 Daily Case Managemen [...] (2gNA, low fat, low cholesterol) 12/04/23 1726 Physician Expected Discharge Date: 12/06/2023 Discharge Delays: [...] and under toe wounds 12/05/23 0236 Normal [facility] BASIC METABOLIC PANELon 11-11 Anion gap [Moles/Vol] 7 mmol/L Normal 7-20 [facility] Comment on above: Performed By: #### L [id number] #### [facility] ([facility]) [address] [place] [address] Calcium [Mass/Vol] 8.6 mg/dL Normal 8.6-10.3 [facility] Comment on above: Performed By: #### L [id number] #### [facility] ([facility]) [address] [place] [address] Chloride [Moles/Vol] 105 mmol/L Normal 98-107 [facility] Comment on above: Performed By: #### L [id number] #### [facility] ([facility]) [address] [place] [address] CO2 [Moles/Vol] 27 mmol/L Normal 21-31 [facility] Comment on above: Performed By: #### L [id number] #### [facility] ([facility]) [address] [place] [address] Creatinine [Mass/Vol] 0.97 mg/dL Normal 0.60-1.20 [facility] Comment on above: Performed By: #### L [id number] #### [facility] ([facility]) [address] [place] [address] GLOMERULAR FILTRATION RATE ML/MIN/1.73 SQ M.PREDICTED 63.3 mL/min/1.73m*2 Normal >60.0 [facility] Comment on above: Result Comment: The [facility]???s estimated glomerular filtration rate (eGFR) will no [...] group of individuals. Performed By: #### L [id number] #### [facility] ([facility]) [address] [place] [address] Glucose [Mass/Vol] 192 mg/dL High 70-100 [facility] Comment on above: Performed By: #### L [id number] #### [facility] ([facility]) [address] [place] [address] Potassium [Moles/Vol] 4.1 mmol/L Normal 3.5-5.1 [facility] Comment on above: Performed By: #### L [id number] #### [facility] ([facility]) [address] [place] [address] Sodium [Moles/Vol] 135 mmol/L Low 136-145 [facility] Comment on above: Performed By: #### L [id number] #### [facility] ([facility]) [address] [place] [address] Urea nitrogen [Mass/Vol] 29 mg/dL High 7-25 [facility] Comment on above: Performed By: #### L [id number] #### [facility] ([facility]) [address] [place] [address] UREA NITROGEN/CREATININE (MASS RATIO) IN SER/PLAS 29.9 Normal [facility] Comment on above: Performed By: #### L [id number] #### [facility] ([facility]) [address] [place] [address] CBCon 12-05-2023 Erythrocyte distribution width (RBC) [Ratio] 13.5 % Normal 11.5-15.0 [facility] Comment on above: Performed By: #### L [id number] #### [facility] ([facility]) [address] [place] [address] ERYTHROCYTE MEAN CORPUSCULAR HEMOGLOBIN CONCENTRATION (G/DL) BY AUTOMATED 32.3 g/dL Normal 32.0-35.0 [facility] Comment on above: Performed By: #### L [id number] #### [facility] ([facility]) [address] [place] [address] Hematocrit (Bld) [Volume fraction] 30.0 % Low 36.0-48.0 [facility] Comment on above: Performed By: #### L [id number] #### [facility] ([facility]) [address] [place] [address] Hemoglobin (Bld) [Mass/Vol] 9.7 g/dL Low 12.0-15.0 [facility] Comment on above: Performed By: #### L [id number] #### [facility] ([facility]) [address] [place] [address] MCH (RBC) [Entitic mass] 28.6 pg Normal 27.0-33.0 [facility] Comment on above: Performed By: #### L [id number] #### [facility] ([facility]) [address] [place] [address] MCV (RBC) [Entitic vol] 88.5 fL Normal 82.0-98.0 [facility] Comment on above: Performed By: #### L [id number] #### [facility] ([facility]) [address] [place] [address] PLATELETS (10*3/UL) IN BLOOD AUTOMATED COUNT 182 10*3/uL Normal 150-400 [facility] Comment on above: Performed By: #### L [id number] #### [facility] ([facility]) [address] [place] [address] RBC (Bld) [#/Vol] 3.39 10*6/uL Low 3.80-5.00 [facility] Comment on above: Performed By: #### L [id number] #### [facility] ([facility]) [address] [place] [address] WBC (Bld) [#/Vol] 8.35 10*3/uL Normal 4.00-10.60 [facility] Comment on above: Performed By: #### L [id number] #### [facility] ([facility]) [address] [place] [address] NURSNOTEon 12-05-2023 NURSNOTE Patient IV removed a nd wheeled out to husbands truck at the main enterance Normal [facility] POCT GLUCOSE METER UNSOLICIT ED RESULTSon 12-05-2023 Glucose [Mass/Vol] 194 mg/dL High 70-105 [facility] Comment on above: Order Comment: Waive d Testing in the ED is performed under the ED CLIA certificate #[id number]. Result Comment: kret tin Performed By: #### L [id number] #### [facility] ([facility]) [address] [place] [address] Glucose [Mass/Vol] 172 mg/dL High 70-105 [facility] Comment on above: Order Comment: Waive d Testing in the ED is performed under the ED CLIA certificate #[id number]. Result Comment: abee rbo Performed By: #### L [id number] #### [facility] ([facility]) [address] [place] [address] APTTon 12-04-2023 ACTIVATED PARTIAL THROMBOPLASTIN TIME IN PPP BY COAGULATION ASSAY 140.0 Seconds Critically high 25.0-35.0 [facility] Comment on above: Result Comment: Clin ical significance of the APTT is questionable in the presence of heparin. Performed By: #### L [id number] #### [facility] ([facility]) [address] [place] [address] ACTIVATED PARTIAL THROMBOPLASTIN TIME IN PPP BY COAGULATION ASSAY 152.0 Seconds Critically high 25.0-35.0 [facility] Comment on above: Result Comment: Clin ical significance of the APTT is questionable in the presence of heparin. Performed By: #### L [id number] #### [facility] ([facility]) [address] [place] [address] BASIC METABOLIC PANELon 11-11 Anion gap [Moles/Vol] 10 mmol/L Normal 7-20 [facility] Comment on above: Performed By: #### L [id number] #### [facility] ([facility]) [address] [place] [address] Calcium [Mass/Vol] 9.6 mg/dL Normal 8.6-10.3 [facility] Comment on above: Performed By: #### L [id number] #### [facility] ([facility]) [address] [place] [address] Chloride [Moles/Vol] 101 mmol/L Normal 98-107 [facility] Comment on above: Performed By: #### L [id number] #### [facility] ([facility]) [address] [place] [address] CO2 [Moles/Vol] 24 mmol/L Normal 21-31 [facility] Comment on above: Performed By: #### L [id number] #### [facility] ([facility]) [address] [place] [address] Creatinine [Mass/Vol] 1.32 mg/dL High 0.60-1.20 [facility] Comment on above: Performed By: #### L [id number] #### [facility] ([facility]) [address] [place] [address] GLOMERULAR FILTRATION RATE ML/MIN/1.73 SQ M.PREDICTED 43.7 mL/min/1.73m*2 Low >60.0 [facility] Comment on above: Result Comment: The [facility]???s estimated glomerular filtration rate (eGFR) will no [...] group of individuals. Performed By: #### L [id number] #### [facility] ([facility]) [address] [place] [address] Glucose [Mass/Vol] 268 mg/dL High 70-100 [facility] Comment on above: Performed By: #### L [id number] #### [facility] ([facility]) [address] [place] [address] Potassium [Moles/Vol] 4.5 mmol/L Normal 3.5-5.1 [facility] Comment on above: Performed By: #### L [id number] #### [facility] ([facility]) [address] [place] [address] Sodium [Moles/Vol] 130 mmol/L Low 136-145 [facility] Comment on above: Performed By: #### L [id number] #### [facility] ([facility]) [address] [place] [address] Urea nitrogen [Mass/Vol] 42 mg/dL High 7-25 [facility] Comment on above: Performed By: #### L [id number] #### [facility] ([facility]) [address] [place] [address] UREA NITROGEN/CREATININE (MASS RATIO) IN SER/PLAS 31.8 Normal [facility] Comment on above: Performed By: #### L [id number] #### [facility] ([facility]) [address] [place] [address] CBC WITH AUTO DIFFERENTIALon 12-04-2023 Basophils (Bld) [#/Vol] 0.04 10*3/uL Normal 0.00-0.20 [facility] Comment on above: Performed By: #### L [id number] #### [facility] ([facility]) [address] [place] [address] Basophils/100 WBC (Bld) 0.4 % Normal 0.0-1.0 [facility] Comment on above: Performed By: #### L [id number] #### [facility] [address] [place] [place] [address] Eosinophils (Bld) [#/Vol] 0.18 10*3/uL Normal 0.00-0.50 [facility] Comment on above: Performed By: #### L [id number] #### [facility] [address] [place] [address] Eosinophils/100 WBC (Bld) 1.9 % Normal 0.0-6.0 [facility] Comment on above: Performed By: #### L [id number] #### [facility] ([facility]) [address] [place] [address] Erythrocyte distribution width (RBC) [Ratio] 13.4 % Normal 11.5-15.0 [facility] Comment on above: Performed By: #### L [id number] #### [facility] [address] [place] [address] ERYTHROCYTE MEAN CORPUSCULAR HEMOGLOBIN CONCENTRATION (G/DL) BY AUTOMATED 33.3 g/dL Normal 32.0-35.0 [facility] Comment on above: Performed By: #### L [id number] #### [facility] [address] [place] [address] Hematocrit (Bld) [Volume fraction] 30.6 % Low 36.0-48.0 [facility] Comment on above: Performed By: #### L [id number] #### [facility] ([facility]) [address] [place] [address] Hemoglobin (Bld) [Mass/Vol] 10.2 g/dL Low 12.0-15.0 [facility] Comment on above: Performed By: #### L [id number] #### [facility] ([facility]) [address] [place] [address] Immature granulocytes (Bld) [#/Vol] 0.02 10*3/uL Normal 0.00-0.20 [facility] Comment on above: Performed By: #### L [id number] #### [facility] ([facility]) [address] [place] [address] Immature granulocytes/100 WBC (Bld) 0.2 % Normal 0.0-1.0 [facility] Comment on above: Performed By: #### L [id number] #### [facility] ([facility]) [address] [place] [address] Lymphocytes (Bld) [#/Vol] 3.07 10*3/uL Normal 1.20-4.00 [facility] Comment on above: Performed By: #### L [id number] #### [facility] ([facility]) [address] [place] [address] Lymphocytes/100 WBC (Bld) 32.0 % Normal 20.0-45.0 [facility] Comment on above: Performed By: #### L [id number] #### [facility] ([facility]) [address] [place] [address] MCH (RBC) [Entitic mass] 29.1 pg Normal 27.0-33.0 [facility] Comment on above: Performed By: #### L [id number] #### [facility] ([facility]) [address] [place] [address] MCV (RBC) [Entitic vol] 87.2 fL Normal 82.0-98.0 [facility] Comment on above: Performed By: #### L [id number] #### [facility] ([facility]) [address] [place] [address] Monocytes (Bld) [#/Vol] 0.96 10*3/uL Normal 0.10-1.00 [facility] Comment on above: Performed By: #### L [id number] #### [facility] ([facility]) [address] [place] [address] Monocytes/100 WBC (Bld) 10.0 % Normal 5.0-12.0 [facility] Comment on above: Performed By: #### L [id number] #### [facility] ([facility]) [address] [address] Neutrophils (Bld) [#/Vol] 5.33 10*3/uL Normal 1.60-7.60 [facility] Comment on above: Performed By: #### L [id number] #### [facility] ([facility]) [address] [place] [address] Neutrophils/100 WBC (Bld) 55.5 % Normal 40.0-72.0 [facility] Comment on above: Performed By: #### L [id number] #### [facility] ([facility]) [address] [place] [address] NRBC (PER 100 WBCS) BY AUTOMATED COUNT 0.0 % Normal 0 [facility] Comment on above: Performed By: #### L [id number] #### [facility] ([facility]) [address] [place] [address] PLATELETS (10*3/UL) IN BLOOD AUTOMATED COUNT 207 10*3/uL Normal 150-400 [facility] Comment on above: Performed By: #### L [id number] #### [facility] ([facility]) [address] [place] [address] RBC (Bld) [#/Vol] 3.51 10*6/uL Low 3.80-5.00 [facility] Comment on above: Performed By: #### L [id number] #### [facility] ([facility]) [address] [place] [address] WBC (Bld) [#/Vol] 9.60 10*3/uL Normal 4.00-10.60 [facility] Comment on above: Performed By: #### L [id number] #### [facility] ([facility]) [address] [address] CONSULTon 12-04-2023 CONSULT -- Attestation signed by Bev Bradford [...] has a past medical history of A-fib ([facility]), Aortic valve stenosis, Coronary artery disease, Diabetes mellitus ([facility]), Hypertension, and Peripheral vascular disease ([facility]). Surgical History She has a [...] Lab Results (more content not included)... Normal [facility] CONSULT -- Attestation signed by Binh Padilla MD at 12/04/2023 1:00 PM Pt with severe pain left leg Has no pulses History of PVD Plan for angiogram and intervention Reason For Consult left leg critical limb ischemia Referring Provider: [facility] emergency department History Of Present Illness [...] emergency department after being referred by her electronic device repairer for worsening leg pain. It is worse at night. She also reports significant pain in the toes. Past Medical History She has a past medical history of A-fib ([facility]), Aortic valve stenosis, Coronary artery disease, Diabetes mellitus ([facility]), Hypertension, and Peripheral vascular disease ([facility]). Surgical History She has a [...] 0-28 Units/kg/hr intravenous Continuous 18 Units/kg/hr at 12/03/23 193 insulin aspart 0-20 Units subcutaneous Before meals [...] 274 (H) (more content not included)... Normal [facility] OPNOTEon 12-04-2023 OPNOTE LEFT LOWER EXTREMITY ANGIOGRAM (L), AORTOGRAM, LEFT LOWER EXTREMITY JETSTREAM AND ATHERECTOMY/THROMBECOM Y, LEFT LOWER EXTREMITY DRUG COATED BALLOON ANGIOPLASTY OF SFA AND POLITEAL ARTERIES, LEFT LOWER EXTREMITY DISTAL SFA AND POPLITEAL COVERED STENTING Operative Note Date: 12/04/2023 Location: [facility] Name: Marimar Patel, : 1955, Diagnosis Pre-op Diagnosis * PAD (peripheral artery disease) (CMS/HCC) [I73.9] Post-op Diagnosis * PAD (peripheral artery disease) (CMS/HCC) [I73.9] Procedures LEFT LOWER EXTREMITY ANGIOGRAM 99452 - [place] OFFICE/OUTPT VISIT,PROCEDURE ONLY AORTOGRAM 05334 - [place] OFFICE/OUTPT VISIT,PROCEDURE ONLY LEFT LOWER EXTREMITY JETSTREAM AND ATHERECTOMY/THROMBECOM Y 13779 - [place] OFFICE/OUTPT VISIT,PROCEDURE ONLY LEFT LOWER EXTREMITY DRUG COATED BALLOON ANGIOPLASTY OF SFA AND POLITEAL ARTERIES 91914 - [place] OFFICE/OUTPT VISIT,PROCEDURE ONLY LEFT LOWER EXTREMITY DISTAL SFA AND POPLITEAL COVERED STENTING 20389 - [place] OFFICE/OUTPT VISIT,PROCEDURE ONLY Surgeons * Binh Padilla - Primary Procedure Summary Anesthesia: General ASA: III Estimated Blood Loss: 20 mL Total IV Fluids: mL Drains: * None in log * Implants Type Name Action Serial No. Stent STENT,[id number] - [id number] - [id number] Implanted [id number] Staff: Loom Changer: Fercho Farrell RN; Tonja Kelly; Olvin Ley RN Scrub Person: Anabelle Wolf Refrigerating Technician: Jaime Parekh CSA Indications: Marimar Patel is an 68 y.o. female who is having surgery for PAD (peripheral artery disease) ([facility]) [I73.9]. Patient presented with wrist [...] common femoral artery. Micro sheath and 6 [place] sheath were inserted. [place] flush catheter was placed in the abdominal aorta. Angiogram was done for the aorta and the iliac arteries. After that the catheter was placed in the contralateral external iliac artery angiogram was done for the left lower extremity. At this stage patient was given heparin. And then the 6 [place] sheath exchanged to a 7 [place] sheath with the tip in the superficial [...] was persistent because of this inserted a [place] Viabahn 6 x 10 cm cover the stent followed b (more content not included)... Normal [facility] POCT GLUCOSE METER UNSOLICIT ED RESULTSon 12-04-2023 Glucose [Mass/Vol] 284 mg/dL High 70-105 [facility] Comment on above: Order Comment: Waive d Testing in the ED is performed under the ED CLIA certificate #[id number]. Result Comment: spar [email or web address] Performed By: #### L [id number] #### [facility] ([facility]) [address] [place] [address] Glucose [Mass/Vol] 176 mg/dL High 70-105 [facility] Comment on above: Order Comment: Waive d Testing in the ED is performed under the ED CLIA certificate #[id number]. Result Comment: czyd orc Performed By: #### L [id number] #### [facility] ([facility]) [address] [place] [address] Glucose [Mass/Vol] 173 mg/dL High 70-105 [facility] Comment on above: Order Comment: Waive d Testing in the ED is performed under the ED CLIA certificate #[id number]. Result Comment: sbel air Performed By: #### L [id number] #### [facility] ([facility]) [address] [place] [address] TROPONIN Ion 12-04-2023 Troponin I.cardiac [Mass/Vol] 0.02 ng/mL Normal 0.00-0.04 [facility] Comment on above: Performed By: #### L [id number] #### [facility] ([facility]) [address] [place] [address] APTTon 12-03-2023 ACTIVATED PARTIAL THROMBOPLASTIN TIME IN PPP BY COAGULATION ASSAY 35.8 Seconds High 25.0-35.0 [facility] Comment on above: Result Comment: Clin ical significance of the APTT is questionable in the presence of heparin. Performed By: #### L [id number] ####[facility] ([facility])[address] [place] [address] BASIC METABOLIC PANELon 11-11 Anion gap [Moles/Vol] 13 mmol/L Normal 7-20 [facility] Comment on above: Performed By: #### L [id number] ####[facility] ([facility])[address] [place] [address] Calcium [Mass/Vol] 11.5 mg/dL High 8.6-10.3 [facility] Comment on above: Performed By: #### L [id number] ####[facility] ([facility])[address] [place] [address] Chloride [Moles/Vol] 93 mmol/L Low 98-107 [facility] Comment on above: Performed By: #### L [id number] ####[facility] ([facility])[address] [place] [address] CO2 [Moles/Vol] 27 mmol/L Normal 21-31 [facility] Comment on above: Performed By: #### L [id number] ####[facility] ([facility])[address] [place] [address] Creatinine [Mass/Vol] 1.68 mg/dL High 0.60-1.20 [facility] Comment on above: Performed By: #### L [id number] ####[facility] ([facility])[address] [place] [address] GLOMERULAR FILTRATION RATE ML/MIN/1.73 SQ M.PREDICTED 32.7 mL/min/1.73m*2 Low >60.0 [facility] Comment on above: Result Comment: The [facility]???s estimated glomerular filtration rate (eGFR) will no [...] of individuals. Performed By: #### L [id number] ####[facility] ([facility])[address] [place] [address] Glucose [Mass/Vol] 274 mg/dL High 70-100 [facility] Comment on above: Performed By: #### L [id number] ####[facility] ([facility])[address] [place] [address] Potassium [Moles/Vol] 5.1 mmol/L Normal 3.5-5.1 [facility] Comment on above: Performed By: #### L [id number] ####[facility] ([facility])[address] [place] [address] Sodium [Moles/Vol] 128 mmol/L Low 136-145 [facility] Comment on above: Performed By: #### L [id number] ####[facility] ([facility])[address] [place] [address] Urea nitrogen [Mass/Vol] 55 mg/dL High 7-25 [facility] Comment on above: Performed By: #### L [id number] ####[facility] ([facility])[address] [place] [address] UREA NITROGEN/CREATININE (MASS RATIO) IN SER/PLAS 32.7 Normal [facility] Comment on above: Performed By: #### L [id number] ####[facility] ([facility])[address] [place] [address] CBC WITH AUTO DIFFERENTIALon 12-03-2023 Basophils (Bld) [#/Vol] 0.05 10*3/uL Normal 0.00-0.20 [facility] Comment on above: Performed By: #### L [id number] #### [facility] ([facility]) [address] [place] [address] Basophils/100 WBC (Bld) 0.5 % Normal 0.0-1.0 [facility] Comment on above: Performed By: #### L [id number] #### [facility] ([facility]) [address] [place] [address] Eosinophils (Bld) [#/Vol] 0.21 10*3/uL Normal 0.00-0.50 [facility] Comment on above: Performed By: #### L [id number] #### [facility] ([facility]) [address] [place] [address] Eosinophils/100 WBC (Bld) 1.9 % Normal 0.0-6.0 [facility] Comment on above: Performed By: #### L [id number] #### [facility] ([facility]) [address] [place] [address] Erythrocyte distribution width (RBC) [Ratio] 13.2 % Normal 11.5-15.0 [facility] Comment on above: Performed By: #### L [id number] #### [facility] ([facility]) [address] [place] [address] ERYTHROCYTE MEAN CORPUSCULAR HEMOGLOBIN CONCENTRATION (G/DL) BY AUTOMATED 33.5 g/dL Normal 32.0-35.0 [facility] Comment on above: Performed By: #### L [id number] #### [facility] ([facility]) [address] [place] [address] Hematocrit (Bld) [Volume fraction] 34.6 % Low 36.0-48.0 [facility] Comment on above: Performed By: #### L [id number] #### [facility] ([facility]) [address] [place] [address] Hemoglobin (Bld) [Mass/Vol] 11.6 g/dL Low 12.0-15.0 [facility] Comment on above: Performed By: #### L [id number] #### [facility] ([facility]) [address] [place] [address] Immature granulocytes (Bld) [#/Vol] 0.03 10*3/uL Normal 0.00-0.20 [facility] Comment on above: Performed By: #### L [id number] #### [facility] ([facility]) [address] [place] [address] Immature granulocytes/100 WBC (Bld) 0.3 % Normal 0.0-1.0 [facility] Comment on above: Performed By: #### L [id number] #### [facility] ([facility]) [address] [place] [address] Lymphocytes (Bld) [#/Vol] 3.27 10*3/uL Normal 1.20-4.00 [facility] Comment on above: Performed By: #### L [id number] #### [facility] ([facility]) [address] [place] [address] Lymphocytes/100 WBC (Bld) 30.0 % Normal 20.0-45.0 [facility] Comment on above: Performed By: #### L [id number] #### [facility] ([facility]) [address] [place] [address] MCH (RBC) [Entitic mass] 28.3 pg Normal 27.0-33.0 [facility] Comment on above: Performed By: #### L [id number] #### [facility] ([facility]) [address] [place] [address] MCV (RBC) [Entitic vol] 84.4 fL Normal 82.0-98.0 [facility] Comment on above: Performed By: #### L [id number] #### [facility] ([facility]) [address] [place] [address] Monocytes (Bld) [#/Vol] 1.05 10*3/uL High 0.10-1.00 [facility] Comment on above: Performed By: #### L [id number] #### [facility] ([facility]) [address] [place] [address] Monocytes/100 WBC (Bld) 9.6 % Normal 5.0-12.0 [facility] Comment on above: Performed By: #### L [id number] #### [facility] ([facility]) [address] [place] [address] Neutrophils (Bld) [#/Vol] 6.28 10*3/uL Normal 1.60-7.60 [facility] Comment on above: Performed By: #### L [id number] #### [facility] ([facility]) [address] [place] [address] Neutrophils/100 WBC (Bld) 57.7 % Normal 40.0-72.0 [facility] Comment on above: Performed By: #### L [id number] #### [facility] [address] [place] [address] NRBC (PER 100 WBCS) BY AUTOMATED COUNT 0.0 % Normal 0 [facility] Comment on above: Performed By: #### L [id number] #### [facility] ([facility]) [address] [place] [address] PLATELETS (10*3/UL) IN BLOOD AUTOMATED COUNT 237 10*3/uL Normal 150-400 [facility] Comment on above: Performed By: #### L [id number] #### [facility] ([facility]) [address] [place] [address] RBC (Bld) [#/Vol] 4.10 10*6/uL Normal 3.80-5.00 [facility] Comment on above: Performed By: #### L [id number] #### [facility] ([facility]) [address] [place] [address] WBC (Bld) [#/Vol] 10.89 10*3/uL High 4.00-10.60 [facility] Comment on above: Performed By: #### L [id number] #### [facility] ([facility]) [address] [place] [address] CTA AORTA AND BILATERAL ILIO FEMORAL RUNOFF [...] and 22 left main renal arteries. Small DUSITN is patent. There is heavy calcification within [...] to the ankle. Electronically signed: Gayle Quintanilla. [facility] EDNURSon 12-03-2023 EDNURS Mode of arrival (squ ad #, walk in, police, etc): Walk in Chief complaint(s): Foot wound, leg/calf pain Arrival Note (brief scenario, treatment [employer], etc): Patient states she had testing/labs done for her leg sores/pain. Patient states doctor set it up for her to get angioplasty. [facility] EDPROVon 12-03-2023 EDPROV HPI Chief Complaint [...] Attestion Mark Gaines NP 12/03/23 1649 Normal [facility] HEMOGLOBIN A1Con 12-03-2023 Glucose [Mass/Vol] 252 mg/dL Normal [facility] Comment on above: Performed By: #### L [id number] #### [facility] ([facility]) [address] [place] [address] HbA1c (Bld) [Mass fraction] 10.4 % High 4.0-6.0 [facility] Comment on above: Performed By: #### L [id number] #### [facility] (HOMER) [address] [place] [address] HPon 12-03-2023 HP History Of Present Illness [...] has a past medical history of A-fib ([facility]), Aortic valve stenosis, Coronary artery disease, Diabetes mellitus ([facility]), Hypertension, and Peripheral vascular disease ([facility]). Surgical History She has a [...] 10*3/uL 6.28 (more content not included)... Normal [facility] POCT GLUCOSE METER UNSOLICIT ED RESULTSon 12-03-2023 Glucose [Mass/Vol] 337 mg/dL High 70-105 [facility] Comment on above: Order Comment: Waive d Testing in the ED is performed under the ED CLIA certificate #[id number]. Result Comment: spar [email or web address] Performed By: #### L [id number] #### [facility] ([facility]) [address] [place] [address] PROTIME-INRon 12-03-2023 INR IN PPP BY COAGULATION ASSAY 1.24 High 0.90-1.10 [facility] Comment on above: Result Comment: ACCC P [...] RANGE. CHEST 1995;[id number]. Performed By: #### L [id number] #### [facility] ([facility]) [address] [place] [address] PROTHROMBIN TIME (PT) IN PPP BY COAGULATION ASSAY 15.7 Seconds High 12.3-14.8 [facility] Comment on above: Performed By: #### L [id number] #### [facility] ([facility]) [address] [place] [address] Telephoneon 10-29-2023 Telephone [phone] Pancho Patel 1955 F Date Provider Department Center 10/29/2023 DIPAK YEBOAH [facility] Heart[facility]AS Family History Problem Relation Age of Onset Diabetes Mother Cancer Mother Heart disease Father Alcohol abuse Brother Diabetes Brother Family Status - Relation Status Age at Mother Father Brother Normal [facility] US UNI ankle/arm indiceson 0 02-24-2023 US UNI ankle/arm indices [facility] [address] [address] Ultrasound Report Signed Patient: Marimar Patel MR#: [id number] : 1955 Acct:[id number] Age/Sex: 67 / F ADM Date: 02/19/23 Loc: [facility] [facility]: [facility] Att[facility]: Geo Mathew MD Ordering Provider: [...] Geo Mathew MD02/24/2023 3:16 PM Dictation Location: [place] [address] Tech: Ale Lim Transcribed By: [facility] 02/24/23 151 Dictated By: Geo Mathew MD 02/24/23 151 Signed By: 02/24/23 151 Normal [facility] CT STROKE HEAD WOon [...] by: CHANTAL KILLIAN Date: 2023-01-31 12:44 Normal [facility] Blood Urea Nitrogenon 2022 Urea nitrogen [Mass/Vol] 48 mg/dL High 08-02 [facility] Comment on above: Performed By: #### C REAT, BUN #### [facility] [address] [place] [address] Creatinineon 01-13-2023 Creatinine [Mass/Vol] 1.75 mg/dL High 0.44-1.03 [facility] Comment on above: Performed By: #### C REAT, BUN #### [facility] [address] [place] [address] [place] Creatinine Clr Calc Pharmacy [facility] Comment on above: Result Comment: PERF ORMED BY: [facility] [address] [place] [address] PATHOLOGIST BRAIN PICKER FAHAD ASKEW M.D. Performed By: #### C REAT, BUN #### [facility] [address] [place] [address] Estimated GFR ( Lynn 35 [facility] Comment on above: Result Comment: GFR estimated reference range: According to KDOQI guidelines, <60 ml/min/1.73m2 is sufficient to diagnose a patient with chronic kidney disease. Performed By: #### C REAT, BUN #### [facility] [address] [place] [address] Estimated GFR (Non- Am 29 [facility] Comment on above: Performed By: #### C REAT, BUN #### [facility] [address] [place] [address] Creatinine and Glomerular fi ltration rate.predicted panel (S/P/Bld)Ordered By: Geo Mathew on 01-13-2023 Creatinine [Mass/Vol] 1.75 mg/dL 0.44-1.03 [facility] Estimated glomerular filtrat ion rate (GFR) non- AmericanOrdered By: Geo Mathew on 01-13-2023 GFR/1.73 sq M.predicted among non-blacks MDRD (S/P/Bld) [Vol rate/Area] 29 mL/Min [facility] No Panel InformationOrdered By: Geo Mathew on 01-13-2023 Estimated GFR () 35 mL/Min [facility] Comment on above: GFR estimated refere nce range: According to KDOQI guidelines, <60 ml/min/1.73m2 is sufficient to diagnose a patient with chronic kidney disease. Pharmacy Creatinine Clearance (Chem [facility] Urea nitrogen [Mass/volume] in Serum or PlasmaOrdered By: Geo Mathew on 01-13-2023 Urea nitrogen [Mass/Vol] 48 mg/dL 08-02 [facility] ALBUMINon 08-17-2022 Albumin [Mass/Vol] 3.5 g/dL Normal 3.4-5.0 [facility] Comment on above: Performed By: #### B MP, PREALB, ALB ####[facility] [address] [place], [place] [address]KuDr. Sruthi Arechiga CBC AUTO DIFFon 08-17-2022 BASO # 0.0 103/ul Normal 0.0-0.1 [facility] Comment on above: Performed By: #### C BC #### [facility] [address] [place] [address] [address] Sruthi Arcehiga Basophils/100 WBC (Bld) 0.5 % Normal 0.2-2.0 [facility] Comment on above: Performed By: #### C BC #### [facility] [address] [place] [address] [address] Sruthi Arechiga EO # 0.3 103/ul Normal 0.0-0.7 [facility] Comment on above: Performed By: #### C BC #### [facility] [address] [place] [address] [address] Sruthi Arechiga Eosinophils/100 WBC (Bld) 3.6 % Normal 0.9-7.0 [facility] Comment on above: Performed By: #### C BC #### [facility] [address] [place] [address] [address] Sruthi Arechiga Erythrocyte distribution width (RBC) [Ratio] 14.5 % Normal 11.0-15.0 [facility] Comment on above: Performed By: #### C BC #### [facility] [address] [place] [address] [address] Sruthi Arechiga Hematocrit (Bld) [Volume fraction] 37.7 % Normal 36.0-48.0 [facility] Comment on above: Performed By: #### C BC #### [facility] [address] [place] [address] [address] Sruthi Arechiga Hemoglobin (Bld) [Mass/Vol] 11.9 g/dL Critically low 12.0-16.0 [facility] Comment on above: Performed By: #### C BC #### [facility] [address] [place] [address] Dr. Sruthi Arechiga IG # 0.02 10e3/ul Normal 0.00-0.03 [facility] Comment on above: Performed By: #### C BC #### [facility] [address] [place] [address] Dr. Sruthi Arechiga IG % 0.2 % Normal 0.0-0.5 [facility] Comment on above: Performed By: #### C BC #### [facility] [address] [place] [address] Dr. Sruthi Arechiga LYMPH # 2.7 103/ul Normal 1.2-3.8 [facility] Comment on above: Performed By: #### C BC #### [facility] [address] [place] [address] Dr. Sruthi Arechiga Lymphocytes/100 WBC (Bld) 32.2 % Normal 20.5-60.0 [facility] Comment on above: Performed By: #### C BC #### [facility] [address] [place] [address] Dr. Sruthi Arechiga MANUAL DIFF REQ NO Normal [facility] Comment on above: Performed By: #### C BC #### [facility] [address] [place] [address] Dr. Sruthi Arechiga MCH (RBC) [Entitic mass] 26.8 pg Normal 26.7-34.0 [facility] Comment on above: Performed By: #### C BC #### [facility] [address] [place] [address] Dr. Sruthi Arechiga MCHC (RBC) [Mass/Vol] 31.6 g/dL Normal 29.9-35.2 [facility] Comment on above: Performed By: #### C BC #### [facility] [address] [place] [address] Dr. Sruthi Arechiga MCV (RBC) [Entitic vol] 84.9 fL Normal 81.0-99.0 [facility] Comment on above: Performed By: #### C BC #### [facility] [address] [place] [address] Dr. Sruthi Arechiga MONO # 0.8 103/ul Normal 0.3-0.8 [facility] Comment on above: Performed By: #### C BC #### [facility] [address] [place] [address] Dr. Sruthi Arechiga Monocytes/100 WBC (Bld) 9.6 % Normal 1.7-12.0 [facility] Comment on above: Performed By: #### C BC #### [facility] [address] [place] [address] Dr. Sruthi Arechiga NEUT # 4.5 103/ul Normal 1.4-6.5 [facility] Comment on above: Performed By: #### C BC #### [facility] [address] [place] [address] Dr. Sruthi Arechiga Neutrophils/100 WBC (Bld) 53.9 % Normal 43.0-75.0 [facility] Comment on above: Performed By: #### C BC #### [facility] [address] [place] [address] Dr. Sruthi Arechiga Platelet mean volume (Bld) [Entitic vol] 10.8 fL Normal 9.5-13.5 [facility] Comment on above: Performed By: #### C BC #### [facility] [address] [place] [address] Dr. Sruthi Arechiga PLT 246 103/ul Normal 150-450 [facility] Comment on above: Performed By: #### C BC #### [facility] [address] [place] [address] Dr. Sruthi Arechiga RBC 4.44 106/ul Normal 4.20-5.40 [facility] Comment on above: Performed By: #### C BC #### [facility] [address] [place] [address] Dr. Sruthi Arechiga WBC 8.4 103/ul Normal 4.0-11.0 [facility] Comment on above: Performed By: #### C BC #### [facility] [address] [place] [address] Dr. Sruthi Arechiga Covid-19 PCR (CVDTB)on SARS-CoV-2 (COVID-19) RNA KOLE+probe Ql (Unsp spec) Not detected Normal NOT DETECTED [facility] Comment on above: Result Comment: This test is not yet approved or cleared by the [place] FDA. When there are no FDA-approved or cleared tests available, and other criteria are met, FDA can make tests available under an emergency access mechanism called an Emergency Use Authorization (EUA). The EUA for this test is supported by the School Curriculum Developer of Health and Human Service's (HHS's) declaration [...] SARS-CoV-2. Performed By: #### C VDTBH #### [facility] [address] [place] [address] Dr. Sruthi Arechiga GLYCOHEMOGLOBIN A1Con 2021 ADA RECOMMENDATION SEE BELOW Normal [facility] Comment on above: Result Comment: ADA RECOMMENDED LIMIT 4.0 - 6.0 ADA THERAPEUTIC TARGET < 7.0 ACTION SUGGESTED > 7.0 Performed By: #### H STROPN #### [facility] [address] [place] [address] Dr. Sruthi Arechiga Glucose [Mass/Vol] 255 mg/dL Normal [facility] Comment on above: Performed By: #### H STROPN #### [facility] [address] [place] [address] Dr. Sruthi Arechiga HbA1c (Bld) [Mass fraction] 10.5 % Critically high 4.5-6.2 [facility] Comment on above: Performed By: #### H STROPN #### [facility] [address] [place] [address] [address] Sruthi Arechiga MRSA NARES #1on 08-17-2022 MRSA NARES #1 Culture Observations : NO GROWTH OF MRSA AT 48 HOURS. Normal [facility] Comment on above: Performed By: #### M RSAN1 ####[facility] [address] [place] [address]Dr. Sruthi Arechiga PREALBUMINon 08-17-2022 Prealbumin [Mass/Vol] 23.6 mg/dL Normal 20.9-45.5 [facility] Comment on above: Performed By: #### B MP, PREALB, ALB ####[facility] [address] [place] [address]Dr. Sruthi Arechiga PROF CHEM 8 (BAS METB)on Anion gap [Moles/Vol] 11.2 mmol/L Normal [facility] Comment on above: Performed By: #### B MP, PREALB, ALB ####[facility] [address] [place] [address]Dr. Sruthi Arechiga Calcium [Mass/Vol] 9.1 mg/dL Normal 8.5-10.1 [facility] Comment on above: Performed By: #### B MP, PREALB, ALB ####[facility] [address] [place] [address]Dr. Sruthi Arechiga Chloride [Moles/Vol] 105 mmol/L Normal 98-107 [facility] Comment on above: Performed By: #### B MP, PREALB, ALB ####[facility] [address] [place] [address]Dr. Sruthi Arechiga CO2 [Moles/Vol] 26.3 mmol/L Normal 21.0-32.0 [facility] Comment on above: Performed By: #### B MP, PREALB, ALB ####[facility] [address] [place] [address]Dr. Sruthi Arechiga Creatinine [Mass/Vol] 0.72 mg/dL Normal 0.55-1.02 [facility] Comment on above: Performed By: #### B MP, PREALB, ALB ####[facility] [address] [place] [id number]. Sruthi Arechiga EGFR-AF SERBIAN >60 Normal >=60 [facility] Comment on above: Performed By: #### B MP, PREALB, ALB ####[facility] [address] [place] [address]Dr. Sruthi Arechiga EGFR-NON AF SERBIAN >60 Normal >=60 [facility] Comment on above: Performed By: #### B MP, PREALB, ALB ####[facility] [address] [place] [address]Dr. Sruthi Arechiga Glucose [Mass/Vol] 119 mg/dL Critically high 74-106 [facility] Comment on above: Performed By: #### B MP, PREALB, ALB ####[facility] [address] [place] [address]Dr. Sruthi Arechiga Potassium [Moles/Vol] 4.5 mmol/L Normal 3.5-5.1 [facility] Comment on above: Performed By: #### B MP, PREALB, ALB ####[facility] [address] [place] [address]Dr. Sruthi Arechiga Sodium [Moles/Vol] 138 mmol/L Normal 136-145 [facility] Comment on above: Performed By: #### B MP, PREALB, ALB ####[facility] [address] [place] [address]Dr. Sruthi Arechiga Urea nitrogen [Mass/Vol] 18.0 mg/dL Normal 7.0-18.0 [facility] Comment on above: Performed By: #### B MP, PREALB, ALB ####[facility] [address] [place] [address]Dr. Sruthi Arechiga Urea nitrogen/Creatinine [Mass ratio] 25.0 mg/mg Normal [facility] Comment on above: Performed By: #### B MP, PREALB, ALB ####[facility] [address] [place] [address]Dr. Sruthi Arechiga Covid-19 PCR (CVDTBH)on 07-11 SARS-CoV-2 (COVID-19) RNA KOLE+probe Ql (Unsp spec) Not detected Normal NOT DETECTED [facility] Comment on above: Result Comment: When [...] for this test is supported by the School Curriculum Developer of Health and Human Service's declaration that [...] used). Performed By: #### C VDTB #### [facility] [address] [place], [place] [address] Dr. Sruthi Arechiga BNPon 07-07-2022 Natriuretic peptide B (Bld) [Mass/Vol] 1389.0 pg/mL Critically high <=900.0 [facility] Comment on above: Performed By: #### B COMPOSITE SCIENCE TEACHER, BMP ####[facility] [address] [place], [place] [address]BdDr. Sruthi Arechiga CBC AUTO DIFFon 07-07-2022 BASO # 0.0 103/ul Normal 0.0-0.1 [facility] Comment on above: Performed By: #### C BC ####[facility] [address] [place], [place] [address]HfIndu Arechiga Basophils/100 WBC (Bld) 0.5 % Normal 0.2-2.0 [facility] Comment on above: Performed By: #### C BC ####[facility] [address] [place], [place] [address]ZyDr. Sruthi Arechiga EO # 0.2 103/ul Normal 0.0-0.7 [facility] Comment on above: Performed By: #### C BC ####[facility] [address] [place] [address]Dr. Sruthi Arechiga Eosinophils/100 WBC (Bld) 2.4 % Normal 0.9-7.0 [facility] Comment on above: Performed By: #### C BC ####[facility] [address] [place], [place] [address]Dr. Sruthi Arechiga Erythrocyte distribution width (RBC) [Ratio] 13.2 % Normal 11.0-15.0 [facility] Comment on above: Performed By: #### C BC ####[facility] [address] [place], [place] [address]Dr. Sruthi Arechiga Hematocrit (Bld) [Volume fraction] 32.4 % Critically low 36.0-48.0 [facility] Comment on above: Performed By: #### C BC ####[facility] [address] [place], [place] [address]Dr. Sruthi Arechiga Hemoglobin (Bld) [Mass/Vol] 10.2 g/dL Critically low 12.0-16.0 [facility] Comment on above: Performed By: #### C BC ####[facility] [address] [place], [place] [address]Dr. Sruthi Arechiga IG # 0.04 10e3/ul Critically high 0.00-0.03 [facility] Comment on above: Performed By: #### C BC ####[facility] [address] [place], [place] [address]Dr. Sruthi Arechiga IG % 0.5 % Normal 0.0-0.5 [facility] Comment on above: Performed By: #### C BC ####[facility] [address] [place], [place] [address]DrIndu Sruthi Arechiga LYMPH # 2.1 103/ul Normal 1.2-3.8 [facility] Comment on above: Performed By: #### C BC ####[facility] [address] [place], [place] [address]Dr. Sruthi Hawk Lymphocytes/100 WBC (Bld) 23.9 % Normal 20.5-60.0 [facility] Comment on above: Performed By: #### C BC ####[facility] [address] [place] [address]Dr. Sruthi Arechiga MANUAL DIFF REQ NO Normal [facility] Comment on above: Performed By: #### C BC ####[facility] [address] [place] [id number]. Sruthi Arechiga MCH (RBC) [Entitic mass] 26.8 pg Normal 26.7-34.0 [facility] Comment on above: Performed By: #### C BC ####[facility] [address] [place], [place] [address]Dr. Sruthi Arechiga MCHC (RBC) [Mass/Vol] 31.5 g/dL Normal 29.9-35.2 [facility] Comment on above: Performed By: #### C BC ####[facility] [address] [place], [place] [address]Dr. Sruthi Arechiga MCV (RBC) [Entitic vol] 85.0 fL Normal 81.0-99.0 [facility] Comment on above: Performed By: #### C BC ####[facility] [address] [place], [place] [address]DrIndu Arechiga MONO # 1.1 103/ul Critically high 0.3-0.8 [facility] Comment on above: Performed By: #### C BC ####[facility] [address] [place], [place] [address]DrIndu Arechiga Monocytes/100 WBC (Bld) 13.1 % Critically high 1.7-12.0 [facility] Comment on above: Performed By: #### C BC ####[facility] [address] [place], [place] [address]DrIndu Arechiga NEUT # 5.2 103/ul Normal 1.4-6.5 [facility] Comment on above: Performed By: #### C BC ####[facility] [address] [place], [place] [address]DrIndu Arechiga Neutrophils/100 WBC (Bld) 59.6 % Normal 43.0-75.0 [facility] Comment on above: Performed By: #### C BC ####[facility] [address] [place] [address]Dr. Sruthi Arechiga Platelet mean volume (Bld) [Entitic vol] 12.6 fL Normal 9.5-13.5 [facility] Comment on above: Performed By: #### C BC ####[facility] [address] [place] [address]Dr. Sruthi Arechiga PLT 146 103/ul Critically low 150-450 [facility] Comment on above: Performed By: #### C BC ####[facility] [address] [place] [address]Dr. Sruthi Arechiga RBC 3.81 106/ul Critically low 4.20-5.40 [facility] Comment on above: Performed By: #### C BC ####[facility] [address] [place], [place] [address]Dr. Sruthi Arechiga WBC 8.7 103/ul Normal 4.0-11.0 [facility] Comment on above: Performed By: #### C BC ####[facility] [address] [place], [place] [address]Dr. Sruthi Arechiga PROF CHEM 8 (BAS METB)on Anion gap [Moles/Vol] 12.0 mmol/L Normal [facility] Comment on above: Performed By: #### B COMPOSITE SCIENCE TEACHER, BMP ####[facility] [address] [place], [place] [address]Dr. Sruthi Arechiga Calcium [Mass/Vol] 9.0 mg/dL Normal 8.5-10.1 [facility] Comment on above: Performed By: #### B COMPOSITE SCIENCE TEACHER, BMP ####[facility] [address] [place], [place] [address]Dr. Sruthi Arechiga Chloride [Moles/Vol] 99 mmol/L Normal 98-107 [facility] Comment on above: Performed By: #### B COMPOSITE SCIENCE TEACHER, BMP ####[facility] [address] [place], [place] [address]Dr. Sruthi Arechiga CO2 [Moles/Vol] 29.4 mmol/L Normal 21.0-32.0 [facility] Comment on above: Performed By: #### B COMPOSITE SCIENCE TEACHER, BMP ####[facility] [address] [place] [id number]. Sruthi Arechiga Creatinine [Mass/Vol] 0.86 mg/dL Normal 0.55-1.02 [facility] Comment on above: Performed By: #### B COMPOSITE SCIENCE TEACHER, BMP ####[facility] [address] [place] [address]Dr. Sruthi Arechiga EGFR-AF SERBIAN >60 Normal >=60 [facility] Comment on above: Performed By: #### B COMPOSITE SCIENCE TEACHER, BMP ####[facility] [address] [place], [place] [address]Dr. Sruthi Arechiga EGFR-NON AF SERBIAN >60 Normal >=60 [facility] Comment on above: Performed By: #### B COMPOSITE SCIENCE TEACHER, BMP ####[facility] [address] [place], [place] [address]Dr. Sruthi Arechiga Glucose [Mass/Vol] 185 mg/dL Critically high 74-106 [facility] Comment on above: Performed By: #### B COMPOSITE SCIENCE TEACHER, BMP ####[facility] [address] [place], [place] [address]Dr. Sruthi Hawk Potassium [Moles/Vol] 4.4 mmol/L Normal 3.5-5.1 [facility] Comment on above: Performed By: #### B COMPOSITE SCIENCE TEACHER, BMP ####[facility] [address] [place] [address]Dr. Sruthi Arechiga Sodium [Moles/Vol] 136 mmol/L Normal 136-145 [facility] Comment on above: Performed By: #### B COMPOSITE SCIENCE TEACHER, BMP ####[facility] [address] [place], [place] [address]Dr. Sruthi Arechiga Urea nitrogen [Mass/Vol] 27.0 mg/dL Critically high 7.0-18.0 [facility] Comment on above: Performed By: #### B COMPOSITE SCIENCE TEACHER, BMP ####[facility] [address] [place], [place] [address]Dr. Sruthi Arechiga Urea nitrogen/Creatinine [Mass ratio] 31.4 mg/mg Normal [facility] Comment on above: Performed By: #### B COMPOSITE SCIENCE TEACHER, BMP ####[facility] [address] [place] [address]Dr. Sruthi Arechiga CBC AUTO DIFFon 07-06-2022 BASO # 0.0 103/ul Normal 0.0-0.1 [facility] Comment on above: Performed By: #### C VDTBH #### [facility] [address] [place] [address] [address] Sruthi Arechiga Basophils/100 WBC (Bld) 0.4 % Normal 0.2-2.0 [facility] Comment on above: Performed By: #### C VDTBH #### [facility] [address] [place] [address] [address] Sruthi Arechiga EO # 0.2 103/ul Normal 0.0-0.7 [facility] Comment on above: Performed By: #### C VDTBH #### [facility] [address] [place] [address] [address] Sruthi Arechiga Eosinophils/100 WBC (Bld) 2.4 % Normal 0.9-7.0 [facility] Comment on above: Performed By: #### C VDTBH #### [facility] [address] [place] [address] Dr. Sruthi Arechiga Erythrocyte distribution width (RBC) [Ratio] 13.3 % Normal 11.0-15.0 [facility] Comment on above: Performed By: #### C VDTBH #### [facility] [address] [place] [address] [address] Sruthi Arechiga Hematocrit (Bld) [Volume fraction] 32.0 % Critically low 36.0-48.0 [facility] Comment on above: Performed By: #### C VDTBH #### [facility] [address] [address] [address] Sruthi Arechiga Hemoglobin (Bld) [Mass/Vol] 10.0 g/dL Critically low 12.0-16.0 [facility] Comment on above: Performed By: #### C VDTBH #### [facility] [address] [place] [address] Dr. Sruthi Arechiga IG # 0.05 10e3/ul Critically high 0.00-0.03 [facility] Comment on above: Performed By: #### C VDTBH #### [facility] [address] [place] [address] Dr. Sruthi Arechiga IG % 0.5 % Normal 0.0-0.5 [facility] Comment on above: Performed By: #### C VDTBH #### [facility] [address] [place] [address] Dr. Sruthi Arechiga LYMPH # 2.4 103/ul Normal 1.2-3.8 [facility] Comment on above: Performed By: #### C VDTBH #### [facility] [address] [place] [address] Dr. Sruthi Arechiga Lymphocytes/100 WBC (Bld) 24.5 % Normal 20.5-60.0 [facility] Comment on above: Performed By: #### C VDTBH #### [facility] [address] [place] [address] Dr. Sruthi Arechiga MANUAL DIFF REQ NO Normal [facility] Comment on above: Performed By: #### C VDTBH #### [facility] [address] [place] [address] Dr. Sruthi Arechiga MCH (RBC) [Entitic mass] 26.5 pg Critically low 26.7-34.0 [facility] Comment on above: Performed By: #### C VDTBH #### [facility] [address] [place] [address] Dr. Sruthi Arechiga MCHC (RBC) [Mass/Vol] 31.3 g/dL Normal 29.9-35.2 [facility] Comment on above: Performed By: #### C VDTBH #### [facility] [address] [place] [address] Dr. Sruthi Arechiga MCV (RBC) [Entitic vol] 84.9 fL Normal 81.0-99.0 [facility] Comment on above: Performed By: #### C VDTBH #### [facility] [address] [address] [address] Sruthi Arechiga MONO # 1.1 103/ul Critically high 0.3-0.8 [facility] Comment on above: Performed By: #### C VDTBH #### [facility] [address] [address] [address] Sruthi Arechiga Monocytes/100 WBC (Bld) 11.7 % Normal 1.7-12.0 [facility] Comment on above: Performed By: #### C VDTBH #### [facility] [address] [place] [address] Dr. Sruthi Arechiga NEUT # 5.8 103/ul Normal 1.4-6.5 [facility] Comment on above: Performed By: #### C VDTBH #### [facility] [address] [place] [address] Dr. Sruthi Arechiga Neutrophils/100 WBC (Bld) 60.5 % Normal 43.0-75.0 [facility] Comment on above: Performed By: #### C VDTBH #### [facility] [address] [place] [address] Dr. Sruthi Arechiga Platelet mean volume (Bld) [Entitic vol] 11.8 fL Normal 9.5-13.5 [facility] Comment on above: Performed By: #### C VDTBH #### [facility] [address] [place] [address] Dr. Sruthi Arechiga PLT 198 103/ul Normal 150-450 [facility] Comment on above: Performed By: #### C VDTBH #### [facility] [address] [place] [address] Dr. Sruthi Arechiga RBC 3.77 106/ul Critically low 4.20-5.40 [facility] Comment on above: Performed By: #### C VDTBH #### [facility] [address] [place] [address] Dr. Sruthi Arechiga WBC 9.7 103/ul Normal 4.0-11.0 [facility] Comment on above: Performed By: #### C VDTBH #### [facility] [address] [place] [address] Dr. Sruthi Arechiga CULTURE URINEon 07-06-2022 CULTURE [...] F Trimethoprim/Sulfameth oxazole <=20 S F Normal [facility] Comment on above: Performed By: #### U RCX ####[facility] [address] [address]Dr. Sruthi Arechiga IRON AND TIBCon 07-06-2022 % SATURATION 9.3 % Normal [facility] Comment on above: Performed By: #### F ETIBC, B12FOL ####[facility] [address] [address]Dr. Sruthi Arechiga Iron [Mass/Vol] 33.0 ug/dL Critically low 50.0-170.0 [facility] Comment on above: Performed By: #### F ETIBC, B12FOL ####[facility] [address] [id number]. Sruthi Arechiga TIBC DIRECT 356.0 ug/dL Normal 250.0-450.0 [facility] Comment on above: Performed By: #### F ETIBC, B12FOL ####[facility] [address] [address]Dr. Sruthi Arechiga OCC BLD IMMUNO SCREENon 06-11 OCCULT BLOOD Negative Normal NEGATIVE [facility] Comment on above: Performed By: #### O BSCRN #### [facility] [address] [place] [address] Dr. Sruthi Arechiga POINT OF CARE GLUCOSEon 06-11 Glucose [Mass/Vol] 412 mg/dL Critically high 74-106 [facility] Comment on above: Performed By: #### C BC #### [facility] [address] [address] [address] Sruthi Arechiga Glucose [Mass/Vol] 299 mg/dL Critically high -106 [facility] Comment on above: Performed By: #### C VDTBH #### [facility] [address] [address] [address] Sruthi Arechiga Glucose [Mass/Vol] 203 mg/dL Critically high -106 [facility] Comment on above: Performed By: #### C BC #### [facility] [address] [address] [address] Sruthi Arechiga PROF CHEM 8 (BAS METB)on Anion gap [Moles/Vol] 11.0 mmol/L Normal [facility] Comment on above: Performed By: #### B MP ####[facility] [address] [address]Dr. Sruthi Arechiga Calcium [Mass/Vol] 9.0 mg/dL Normal 8.5-10.1 [facility] Comment on above: Performed By: #### B MP ####[facility] [address] [address]Dr. Sruthi Arechiga Chloride [Moles/Vol] 100 mmol/L Normal 98-107 [facility] Comment on above: Performed By: #### B MP ####[facility] [address] [address]DrIndu Arechiga CO2 [Moles/Vol] 28.5 mmol/L Normal 21.0-32.0 [facility] Comment on above: Performed By: #### B MP ####[facility] [address] [address]DrIndu Arechiga Creatinine [Mass/Vol] 0.98 mg/dL Normal 0.55-1.02 [facility] Comment on above: Performed By: #### B MP ####[facility] [address] [id number]. Sruthi Arechiga EGFR-AF SERBIAN >60 Normal >=60 [facility] Comment on above: Performed By: #### B MP ####[facility] [address] [phone]. Sruthi Arechiga EGFR-NON AF SERBIAN 56 mL/min/1.73m2 Critically low >=60 [facility] Comment on above: Performed By: #### B MP ####[facility] [address] [phone]. Kamalasven Arechiga Glucose [Mass/Vol] 139 mg/dL Critically high 74-106 [facility] Comment on above: Performed By: #### B MP ####[facility] [address] [place], [place] [address]Dr. Kamalasven Arechiga Potassium [Moles/Vol] 4.5 mmol/L Normal 3.5-5.1 [facility] Comment on above: Performed By: #### B MP ####[facility] [address] [place], [place] [address]Dr. Kamalasven Arechiga Sodium [Moles/Vol] 135 mmol/L Critically low 136-145 [facility] Comment on above: Performed By: #### B MP ####[facility] [address] [place], [place] [address]Dr. Kamalasven Hawk Urea nitrogen [Mass/Vol] 25.0 mg/dL Critically high 7.0-18.0 [facility] Comment on above: Performed By: #### B MP ####[facility] [address] [address]Dr. Sruthi Arechiga Urea nitrogen/Creatinine [Mass ratio] 25.5 mg/mg Normal [facility] Comment on above: Performed By: #### B MP ####[facility] [address] [place], [place] [address]Dr. Kamalasven Hawk VIT B12 AND FOLATEon 022 Cobalamin (Vitamin B12) [Mass/Vol] 653.0 pg/mL Normal 193.0-986.0 [facility] Comment on above: Performed By: #### F ETIBC, B12FOL ####[facility] [address] [phone]. Sruthi Arechiga FOLATE 17.90 ng/mL Normal 8.60-58.90 [facility] Comment on above: Performed By: #### F ETIBC, B12FOL ####[facility] [address] [phone]. Sruthi Arechiga XR CHEST 2 Von 07-06-2022 [...] GORDON VALENZUELA Date: 2022-07-06 08:43 Normal [facility] CBC AUTO DIFFon 07-05-2022 BASO # 0.0 103/ul Normal 0.0-0.1 [facility] Comment on above: Performed By: #### C BC ####[facility] [address] [address]Dr. Sruthi Arechiga Basophils/100 WBC (Bld) 0.4 % Normal 0.2-2.0 [facility] Comment on above: Performed By: #### C BC ####[facility] [address] [phone]. Sruthi Arechiga EO # 0.2 103/ul Normal 0.0-0.7 [facility] Comment on above: Performed By: #### C BC ####[facility] [address] [address]Dr. Sruthi Arechiga Eosinophils/100 WBC (Bld) 2.6 % Normal 0.9-7.0 [facility] Comment on above: Performed By: #### C BC ####[facility] [address] [phone]. Sruthi Arechiga Erythrocyte distribution width (RBC) [Ratio] 13.3 % Normal 11.0-15.0 [facility] Comment on above: Performed By: #### C BC ####[facility] [address] [address]Dr. Sruthi Arechiga Hematocrit (Bld) [Volume fraction] 31.3 % Critically low 36.0-48.0 [facility] Comment on above: Performed By: #### C BC ####[facility] [address] [address]Dr. Sruthi Arechiga Hemoglobin (Bld) [Mass/Vol] 9.9 g/dL Critically low 12.0-16.0 [facility] Comment on above: Performed By: #### C BC ####[facility] [address] [address]Dr. Sruthi Arechiga IG # 0.07 10e3/ul Critically high 0.00-0.03 [facility] Comment on above: Performed By: #### C BC ####[facility] [address] [address]Dr. Sruthi Arechiga IG % 0.8 % Critically high 0.0-0.5 [facility] Comment on above: Performed By: #### C BC ####[facility] [address] [address]Dr. Sruthi Arechiga LYMPH # 2.1 103/ul Normal 1.2-3.8 [facility] Comment on above: Performed By: #### C BC ####[facility] [address] [address]Dr. Sruthi Arechiga Lymphocytes/100 WBC (Bld) 22.5 % Normal 20.5-60.0 [facility] Comment on above: Performed By: #### C BC ####[facility] [address] [address]Dr. Sruthi Arechiga MANUAL DIFF REQ NO Normal [facility] Comment on above: Performed By: #### C BC ####[facility] [address] [phone]. Sruthi Arechiga MCH (RBC) [Entitic mass] 27.0 pg Normal 26.7-34.0 [facility] Comment on above: Performed By: #### C BC ####[facility] [address] [phone]. Sruthi Arechiga MCHC (RBC) [Mass/Vol] 31.6 g/dL Normal 29.9-35.2 [facility] Comment on above: Performed By: #### C BC ####[facility] [address] [phone]. Sruthi Arechiga MCV (RBC) [Entitic vol] 85.3 fL Normal 81.0-99.0 [facility] Comment on above: Performed By: #### C BC ####[facility] [address] [place], [place] [address]Dr. Sruthi Hawk MONO # 1.2 103/ul Critically high 0.3-0.8 [facility] Comment on above: Performed By: #### C BC ####[facility] [address] [place], [place] [address]Dr. Sruthi Hawk Monocytes/100 WBC (Bld) 12.9 % Critically high 1.7-12.0 [facility] Comment on above: Performed By: #### C BC ####[facility] [address] [place], [place] [address]Dr. Sruthi Arechiga NEUT # 5.7 103/ul Normal 1.4-6.5 [facility] Comment on above: Performed By: #### C BC ####[facility] [address] [place], [place] [address]Dr. Kamalasven Arechiga Neutrophils/100 WBC (Bld) 60.8 % Normal 43.0-75.0 [facility] Comment on above: Performed By: #### C BC ####[facility] [address] [place], [place] [address]Dr. Kamalasven Arechiga Platelet mean volume (Bld) [Entitic vol] 11.2 fL Normal 9.5-13.5 [facility] Comment on above: Performed By: #### C BC ####[facility] [address] [place], [place] [address]Hu. Surthi Arechiga PLT 213 103/ul Normal 150-450 [facility] Comment on above: Performed By: #### C BC ####[facility] [address] [place], [place] [address]Wh. Sruthi Arechiga RBC 3.67 106/ul Critically low 4.20-5.40 [facility] Comment on above: Performed By: #### C BC ####[facility] [address] [place], [place] [address]Il. Sruthi Arechiga WBC 9.3 103/ul Normal 4.0-11.0 [facility] Comment on above: Performed By: #### C BC ####[facility] [address] [phone] Arechiga POINT OF CARE GLUCOSEon 06-11 Glucose [Mass/Vol] 278 mg/dL Critically high -106 [facility] Comment on above: Performed By: #### C VDTBH #### [facility] [address] [address] [address] Sruthi Arechiga Glucose [Mass/Vol] 303 mg/dL Critically high [address] [place] [address] Comment on above: Performed By: #### P OCGLUC #### [facility] [address] [address] [address] Sruthi Arechiga Glucose [Mass/Vol] 164 mg/dL Critically high [address] [place] [address] Comment on above: Performed By: #### C VDTBH #### [facility] [address] [address] [address] Sruthi Arechiga PROF CHEM 8 (BAS METB)on Anion gap [Moles/Vol] 9.9 mmol/L Normal [facility] Comment on above: Performed By: #### B MP ####[facility] [address] [phone] Arechiga Calcium [Mass/Vol] 8.7 mg/dL Normal 8.5-10.1 [facility] Comment on above: Performed By: #### B MP ####[facility] [address] [phone]. Sruthi Arechiga Chloride [Moles/Vol] 100 mmol/L Normal 98-107 [facility] Comment on above: Performed By: #### B MP ####[facility] [address] [phone]. Sruthi Arechiga CO2 [Moles/Vol] 28.4 mmol/L Normal 21.0-32.0 [facility] Comment on above: Performed By: #### B MP ####[facility] [address] [place], [place] [address]Dr. Sruthi Arechiga Creatinine [Mass/Vol] 0.99 mg/dL Normal 0.55-1.02 [facility] Comment on above: Performed By: #### B MP ####[facility] [address] [place], [place] [address]Dr. Sruthi Hawk EGFR-AF SERBIAN >60 Normal >=60 [facility] Comment on above: Performed By: #### B MP ####[facility] [address] [place], [place] [address]Dr. Sruthi Hawk EGFR-NON AF SERBIAN 56 mL/min/1.73m2 Critically low >=60 [facility] Comment on above: Performed By: #### B MP ####[facility] [address] [place], [place] [address]Dr. Kamalasven Hawk Glucose [Mass/Vol] 174 mg/dL Critically high 74-106 [facility] Comment on above: Performed By: #### B MP ####[facility] [address] [address]Dr. Kamalasven Hawk Potassium [Moles/Vol] 4.3 mmol/L Normal 3.5-5.1 [facility] Comment on above: Performed By: #### B MP ####[facility] [address] [address]Dr. Sruthi Arechiga Sodium [Moles/Vol] 134 mmol/L Critically low 136-145 [facility] Comment on above: Performed By: #### B MP ####[facility] [address] [phone]. Sruthi Arechiga Urea nitrogen [Mass/Vol] 22.0 mg/dL Critically high 7.0-18.0 [facility] Comment on above: Performed By: #### B MP ####[facility] [address] [phone]. Sruthi Arechiga Urea nitrogen/Creatinine [Mass ratio] 22.2 mg/mg Normal [facility] Comment on above: Performed By: #### B MP ####[facility] [address] [address]Dr. Sruthi Arechiga BNPon 07-04-2022 Natriuretic peptide B (Bld) [Mass/Vol] 1822.0 pg/mL Critically high <=900.0 [facility] Comment on above: Performed By: #### C BC #### [facility] [address] [place] [address] Dr. Sruthi Arechiga CBC AUTO DIFFon 07-04-2022 BASO # 0.0 103/ul Normal 0.0-0.1 [facility] Comment on above: Performed By: #### C BC #### [facility] [address] [place] [address] Dr. Sruthi Arechiga Basophils/100 WBC (Bld) 0.4 % Normal 0.2-2.0 [facility] Comment on above: Performed By: #### C BC #### [facility] [address] [place] [address] Dr. Sruthi Arechiga EO # 0.2 103/ul Normal 0.0-0.7 [facility] Comment on above: Performed By: #### C BC #### [facility] [address] [place] [address] Dr. Sruthi Arechiga Eosinophils/100 WBC (Bld) 2.4 % Normal 0.9-7.0 [facility] Comment on above: Performed By: #### C BC #### [facility] [address] [place] [address] Dr. Sruthi Arechiga Erythrocyte distribution width (RBC) [Ratio] 13.5 % Normal 11.0-15.0 [facility] Comment on above: Performed By: #### C BC #### [facility] [address] [place] [address] Dr. Sruthi Arechiga Hematocrit (Bld) [Volume fraction] 36.4 % Normal 36.0-48.0 [facility] Comment on above: Performed By: #### C BC #### [facility] [address] [place] [address] Dr. Sruthi Arechiga Hemoglobin (Bld) [Mass/Vol] 11.6 g/dL Critically low 12.0-16.0 [facility] Comment on above: Performed By: #### C BC #### [facility] [address] [place] [address] Dr. Sruthi Arechiga IG # 0.11 10e3/ul Critically high 0.00-0.03 [facility] Comment on above: Performed By: #### C BC #### [facility] [address] [place] [address] Dr. Sruthi Arechiga IG % 1.2 % Critically high 0.0-0.5 [facility] Comment on above: Performed By: #### C BC #### [facility] [address] [place] [address] Dr. Sruthi Arechiga LYMPH # 1.7 103/ul Normal 1.2-3.8 [facility] Comment on above: Performed By: #### C BC #### [facility] [address] [place] [address] Dr. Sruthi Arechiga Lymphocytes/100 WBC (Bld) 19.0 % Critically low 20.5-60.0 [facility] Comment on above: Performed By: #### C BC #### [facility] [address] [place] [address] Dr. Sruthi Arechiga MANUAL DIFF REQ NO Normal [facility] Comment on above: Performed By: #### C BC #### [facility] [address] [place] [address] Dr. Sruthi Arechiga MCH (RBC) [Entitic mass] 27.3 pg Normal 26.7-34.0 [facility] Comment on above: Performed By: #### C BC #### [facility] [address] [address] [address] Sruthi Arechiga MCHC (RBC) [Mass/Vol] 31.9 g/dL Normal 29.9-35.2 [facility] Comment on above: Performed By: #### C BC #### [facility] [address] [address] [address] Sruthi Arechiga MCV (RBC) [Entitic vol] 85.6 fL Normal 81.0-99.0 [facility] Comment on above: Performed By: #### C BC #### [facility] [address] [place] [address] Dr. Sruthi Arechiga MONO # 1.1 103/ul Critically high 0.3-0.8 [facility] Comment on above: Performed By: #### C BC #### [facility] [address] [place] [address] Dr. Sruthi Arechiga Monocytes/100 WBC (Bld) 11.9 % Normal 1.7-12.0 [facility] Comment on above: Performed By: #### C BC #### [facility] [address] [place] [address] Dr. Sruthi Arechiga NEUT # 6.0 103/ul Normal 1.4-6.5 [facility] Comment on above: Performed By: #### C BC #### [facility] [address] [place] [address] Dr. Sruthi Arechiga Neutrophils/100 WBC (Bld) 65.1 % Normal 43.0-75.0 [facility] Comment on above: Performed By: #### C BC #### [facility] [address] [place] [address] Dr. Sruthi Arechiga Platelet mean volume (Bld) [Entitic vol] 10.7 fL Normal 9.5-13.5 [facility] Comment on above: Performed By: #### C BC #### [facility] [address] [place] [address] Dr. Sruthi Arechiga PLT 264 103/ul Normal 150-450 [facility] Comment on above: Performed By: #### C BC #### [facility] [address] [place], [place] [address] Dr. Sruthi Arechiga RBC 4.25 106/ul Normal 4.20-5.40 [facility] Comment on above: Performed By: #### C BC #### [facility] [address] [place], [place] [address] Dr. Sruthi Arechiga WBC 9.2 103/ul Normal 4.0-11.0 [facility] Comment on above: Performed By: #### C BC #### [facility] [address] [place], [place] [address] Dr. Sruthi Arechiga Covid-19 PCR ([facility])on 06-11 SARS-CoV-2 (COVID-19) RNA KOLE+probe Ql (Unsp spec) Not detected Normal NOT DETECTED [facility] Comment on above: Result Comment: When [...] for this test is supported by the [place] [employer] and [employer] Service's declaration that [...] be used). Performed By: #### C VDTB ####[facility] [address] [place], [place] [address]LtDr. Sruthi Arechiga ER URINE PROFILEon 2 Bilirubin Ql (U) Negative Normal NEGATIVE [facility] Comment on above: Performed By: #### C VDTBH #### [facility] [id number] Sruthi Arechiga Clarity (U) CLEAR Normal CLEAR [facility] Comment on above: Performed By: #### C VDTBH #### [facility] [address] [place] [address] Dr. Sruthi Arechiga Color (U) LT. YELLOW Normal YELLOW [facility] Comment on above: Performed By: #### C VDTBH #### [facility] [address] [place] [address] Dr. Sruthi ALARCONAHMl A micrscopic examination will be performed if indicated. Normal [facility] Comment on above: Performed By: #### C VDTBH #### [facility] [address] [place] [address] Dr. Sruthi Arechiga Glucose Ql (U) >1000 Abnormal NEGATIVE [facility] Comment on above: Performed By: #### C VDTBH #### [facility] [address] [place] [address] Dr. Sruthi Arechiga Hemoglobin Ql (U) Negative Normal NEGATIVE [facility] Comment on above: Performed By: #### C VDTBH #### [facility] [address] [place] [address] Dr. Sruthi Arechiga Ketones Ql (U) Negative Normal NEGATIVE [facility] Comment on above: Performed By: #### C VDTBH #### [facility] [address] [place] [address] Dr. Sruthi Arechiga LEUKOCYTES SMALL Abnormal NEGATIVE [facility] Comment on above: Performed By: #### C VDTBH #### [facility] [address] [place] [address] Dr. Sruthi Arechiga Nitrite Ql (U) Negative Normal NEGATIVE [facility] Comment on above: Performed By: #### C VDTBH #### [facility] [address] [place] [address] Dr. Sruthi Arechiga pH (U) 6.0 [pH] Normal 5-9 [facility] Comment on above: Performed By: #### C VDTBH #### [facility] [address] [place] [address] Dr. Sruthi Arechiga SPEC GRAVITY <=1.005 Abnormal 1.005-<=1.02 5 [facility] Comment on above: Performed By: #### C VDTBH #### [facility] [address] [place] [address] Dr. Sruthi Arechiga UA PROTEIN Negative Normal NEGATIVE/ TRACE [facility] Comment on above: Performed By: #### C VDTBH #### [facility] [address] [address] [address] Sruthi Arechiga UR MICRO IND INDICATED Normal [facility] Comment on above: Performed By: #### C VDTBH #### [facility] [address] [place] [address] Dr. Sruthi Arechiga Urobilinogen Qn (U) 0.2 {Willow'U}/dL Normal 0.2 - 1. 0 [facility] Comment on above: Performed By: #### C VDTBH #### [facility] [address] [place] [address] Dr. Sruthi Arechiga POINT OF CARE GLUCOSEon 06-11 Glucose [Mass/Vol] 262 mg/dL Critically high 74-106 [facility] Comment on above: Performed By: #### P OCGLUC ####[facility] [address] [place], [place] [address]Dr. Sruthi Arechiga PROF CHEM 8 (BAS METB)on Anion gap [Moles/Vol] 13.0 mmol/L Normal [facility] Comment on above: Performed By: #### C BC #### [facility] [address] [place] [address] Dr. Sruthi Arechiga Calcium [Mass/Vol] 9.3 mg/dL Normal 8.5-10.1 [facility] Comment on above: Performed By: #### C BC #### [facility] [address] [place] [address] Dr. Sruthi Arechiga Chloride [Moles/Vol] 99 mmol/L Normal 98-107 [facility] Comment on above: Performed By: #### C BC #### [facility] [address] [place] [address] Dr. Sruthi Arechiga CO2 [Moles/Vol] 26.3 mmol/L Normal 21.0-32.0 [facility] Comment on above: Performed By: #### C BC #### [facility] [address] [address] [address] Sruthi Arechiga Creatinine [Mass/Vol] 0.95 mg/dL Normal 0.55-1.02 [facility] Comment on above: Performed By: #### C BC #### [facility] [address] [address] [address] Sruthi Arechiga EGFR-AF SERBIAN >60 Normal >=60 [facility] Comment on above: Performed By: #### C BC #### [facility] [address] [address] [address] Sruthi Arechiga EGFR-NON AF SERBIAN 58 mL/min/1.73m2 Critically low >=60 [facility] Comment on above: Performed By: #### C BC #### [facility] [address] [address] [address] Sruthi Arechiga Glucose [Mass/Vol] 331 mg/dL Critically high 74-106 [facility] Comment on above: Performed By: #### C BC #### [facility] [address] [address] [address] Sruthi Arechiga Potassium [Moles/Vol] 4.3 mmol/L Normal 3.5-5.1 [facility] Comment on above: Performed By: #### C BC #### [facility] [address] [address] [address] Sruthi Arechiga Sodium [Moles/Vol] 134 mmol/L Critically low 136-145 [facility] Comment on above: Performed By: #### C BC #### [facility] [address] [address] [address] Sruthi Arechiga Urea nitrogen [Mass/Vol] 20.0 mg/dL Critically high 7.0-18.0 [facility] Comment on above: Performed By: #### C BC #### [facility] [address] [address] [address] Sruthi Arechiga Urea nitrogen/Creatinine [Mass ratio] 21.1 mg/mg Normal [facility] Comment on above: Performed By: #### C BC #### [facility] [address] [place] [address] Dr. Sruthi Arechiga TROPONIN, HIGH SENSITIVITYon 07-04-2022 HSTROP 126.6 pg/mL Critically high 4.0-51.3 [facility] Comment on above: Result Comment: CUT- OFF POINTS HAVE BEEN ESTABLISHED BASED ON THE FOURTH UNIVERSAL DEFINITIONS OF MYOCARDIAL INFARCTION. THE UPPER REFERENCE LIMIT (URL) OF TROPONIN, DEFINED THE 99TH PERCENTILE OF cTnI DISTRIBUTION IN A REFERENCE POPULATION, HAS BEEN CONFIRMED THE DECISION THRESHOLD FOR DE DIAGNOSIS. Performed By: #### C VDTBH #### [facility] [address] [place] [address] Dr. Sruthi Arechiga HSTROP 113.1 pg/mL Critically high 4.0-51.3 [facility] Comment on above: Result Comment: CUT- OFF POINTS HAVE BEEN ESTABLISHED BASED ON THE FOURTH UNIVERSAL DEFINITIONS OF MYOCARDIAL INFARCTION. THE UPPER REFERENCE LIMIT (URL) OF TROPONIN, DEFINED THE 99TH PERCENTILE OF cTnI DISTRIBUTION IN A REFERENCE POPULATION, HAS BEEN CONFIRMED THE DECISION THRESHOLD FOR DE DIAGNOSIS. Performed By: #### C BC #### [facility] [address] [place] [address] Dr. Sruthi Arechiga URINE MICROSCOPIC ONLYon BACTERIA LARGE Abnormal NONE SEEN The [facility] Comment on above: Performed By: #### C VDTBH #### [facility] [address] [place] [address] Dr. Sruthi Arechiga Bacteria identified Cx Nom (U) INDICATED Normal [facility] Comment on above: Performed By: #### C VDTBH #### [facility] [address] [place] [address] Dr. Sruthi Arechiga CAST NONE SEEN Normal NONE SEEN [facility] Comment on above: Performed By: #### C VDTBH #### [facility] [address] [place] [address] Dr. Sruthi Arechiga Crystals LM Nom (Urine sed) NONE SEEN Normal NONE SEEN [facility] Comment on above: Performed By: #### C VDTBH #### [facility] [address] [address] [address] Sruthi Arechiga Epithelial cells LM Ql (Urine sed) FEW Abnormal NONE SEEN /RARE [facility] Comment on above: Performed By: #### C VDTBH #### [facility] [address] [address] [address] Sruthi Arechiga MUCOUS NONE SEEN Normal NONE SEEN [facility] Comment on above: Performed By: #### C VDTBH #### [facility] [address] [address] [address] Sruthi Arechiga RBC NONE SEEN Abnormal 0-2 [facility] Comment on above: Performed By: #### C VDTBH #### [facility] [address] [address] [address] Sruthi Arechiga WBC 10-20 Abnormal NONE SEEN [facility] Comment on above: Performed By: #### C VDTBH #### [facility] [address] [place] [address] Dr. Sruthi Arechiga XR CHEST 1 Von [...] [place] COY Date: 2022-07-04 11:53 Normal [facility] CBC COMPLETE BLOOD COUNTon 0 07-03-2022 Erythrocyte distribution width (RBC) [Ratio] 13.4 % Normal 11.5-15.0 The [facility] Comment on above: Order Comment: No: D o not add to previous draw Performed By: #### 8 [id number] #### [facility] [address] Hematocrit (Bld) [Volume fraction] 33.6 % Low 36.0-45.0 The [facility] Comment on above: Order Comment: No: D o not add to previous draw Performed By: #### 8 [id number] #### [facility] [address] [place] [address], [facility] Hemoglobin (Bld) [Mass/Vol] 10.6 g/dL Low 12.0-15.0 [facility] Comment on above: Order Comment: No: D o not add to previous draw Performed By: #### 8 [id number] #### [facility] [address] [facility] [place] [address], [facility] MCH (RBC) [Entitic mass] 26.6 pg Low 27.0-33.0 The [facility] Comment on above: Order Comment: No: D o not add to previous draw Performed By: #### 8 [id number] #### [facility] [address] MCHC (RBC) [Mass/Vol] 31.5 g/dL Low 32.0-35.0 The [facility] Comment on above: Order Comment: No: D o not add to previous draw Performed By: #### 8 [id number] #### [facility] [address] [place] [address], [facility] MCV (RBC) [Entitic vol] 84.4 fL Normal 82.0-98.0 The [facility] Comment on above: Order Comment: No: D o not add to previous draw Performed By: #### 8 [id number] #### [facility] [address] [place] [place] [address], [facility] Nucleated RBC/100 WBC (Bld) [Ratio] 0 % Normal 0-0 [facility] Comment on above: Order Comment: No: D o not add to previous draw Performed By: #### 8 [id number] #### [facility] [address] [place] [address], [facility] PLAT CNT 247 10*3/uL Normal 150-400 The [facility] Comment on above: Order Comment: No: D o not add to previous draw Performed By: #### 8 [id number] #### [facility] [address] [facility]. [address] RBC (Bld) [#/Vol] 3.98 10*6/uL Normal 3.80-5.00 The [facility] Comment on above: Order Comment: No: D o not add to previous draw Performed By: #### 8 [id number] #### [facility] [address] [facility] [place] [place] [address], [facility] WBC (Bld) [#/Vol] 10.25 10*3/uL Normal 4.00-10.60 The [facility] Comment on above: Order Comment: No: D o not add to previous draw Performed By: #### 8 [id number] #### [facility] [address] POC GLUCOSE LABon 07-03-2022 Glucose [Mass/Vol] 135 mg/dL High 70-100 The [facility] Comment on above: Performed By: #### 8 [id number] #### [facility] [address] Glucose [Mass/Vol] 204 mg/dL High 70-100 The [facility] Comment on above: Performed By: #### 1 [id number], [id number], [id number] #### [facility] [address] [facility]. [address] UFH HEPARIN ASSAYon 07-03-20 22 UNFRACTIONATED HEPARIN <0.10 Critically low 0.30-0.70 The [facility] Comment on above: Result Comment: Resu lt checked and called. Accurately read back by Chanda @[id number] Rivaroxaban and Apixaban will interfere with the anti Xa assay used to monitor UFH and LMWH. Performed By: #### 3 [id number] #### [facility] [address] [facility] [place] [place] [address], [facility] BASIC METABOLIC PANELon 08-2 Calcium [Mass/Vol] 8.8 mg/dL Normal 8.6-10.3 The [facility] Comment on above: Order Comment: No: D o not add to previous draw Performed By: #### 8 [id number] #### [facility] [address] [place] [address], [facility] Chloride [Moles/Vol] 104 mmol/L Normal 98-107 The [facility] Comment on above: Order Comment: No: D o not add to previous draw Performed By: #### 8 [id number] #### [facility] [address] [place] [id number], [facility] CO2 [Moles/Vol] 26 mmol/L Normal 21-31 The [facility] Comment on above: Order Comment: No: D o not add to previous draw Performed By: #### 8 [id number] #### [facility] [address] [place] [address], [facility] Creatinine [Mass/Vol] 0.62 mg/dL Normal 0.60-1.20 The [facility] Comment on above: Order Comment: No: D o not add to previous draw Performed By: #### 8 [id number] #### [facility] [address] [place] [address], [facility] GFR/1.73 sq M.predicted among non-blacks MDRD (S/P/Bld) [Vol rate/Area] mL/min/{1.73_m2} Normal >60 The [facility] Comment on above: Order Comment: No: D o not add to previous draw Result Comment: The [facility]'s estimated glomerular filtration rate (eGFR) will no [...] individuals. Performed By: #### 8 [id number] #### [facility] [address] [place] [address], [facility] Glucose [Mass/Vol] 212 mg/dL High 70-100 The [facility] Comment on above: Order Comment: No: D o not add to previous draw Performed By: #### 8 [id number] #### [facility] [address] [place] [address], [facility] Potassium [Moles/Vol] 3.8 mmol/L Normal 3.5-5.1 The [facility] Comment on above: Order Comment: No: D o not add to previous draw Performed By: #### 8 [id number] #### [facility] [address] [place] [address], [facility] Sodium [Moles/Vol] 134 mmol/L Low 136-145 The [facility] Comment on above: Order Comment: No: D o not add to previous draw Performed By: #### 8 [id number] #### [facility] [address] [place] [address], [facility] Urea nitrogen [Mass/Vol] 15 mg/dL Normal 7-25 The [facility] Comment on above: Order Comment: No: D o not add to previous draw Performed By: #### 8 [id number] #### [facility] [address] [place] [address], [facility] CBC W/DIFFon 07-02-2022 ABS IMM GRANS 0.1 10*3/uL Normal 0.0-0.2 The [facility] Comment on above: Order Comment: No: D o not add to previous draw Performed By: #### 8 [id number] #### [facility] [address] [place] [address], [facility] ABS NEUTROPHILS 6.3 10*3/uL Normal 1.6-7.6 The [facility] Comment on above: Order Comment: No: D o not add to previous draw Performed By: #### 8 [id number] #### [facility] [address] [place] [address], [facility] Basophils (Bld) [#/Vol] 0.0 10*3/uL Normal 0.0-0.2 The [facility] Comment on above: Order Comment: No: D o not add to previous draw Performed By: #### 8 [id number] #### [facility] [address] [place] [address], [facility] Basophils/100 WBC (Bld) 0.3 % Normal 0.0-1.0 The [facility] Comment on above: Order Comment: No: D o not add to previous draw Performed By: #### 8 [id number] #### [facility] [address] [place] [address], [facility] Eosinophils (Bld) [#/Vol] 0.2 10*3/uL Normal 0.0-0.5 The [facility] Comment on above: Order Comment: No: D o not add to previous draw Performed By: #### 8 [id number] #### [facility] [address] [place] [id number], [facility] Eosinophils/100 WBC (Bld) 2.3 % Normal 0.0-6.0 The [facility] Comment on above: Order Comment: No: D o not add to previous draw Performed By: #### 8 [id number] #### [facility] [address] [place] [address], [facility] Erythrocyte distribution width (RBC) [Ratio] 13.5 % Normal 11.5-15.0 The [facility] Comment on above: Order Comment: No: D o not add to previous draw Performed By: #### 8 [id number] #### [facility] [address] [place] [id number], [facility] Hematocrit (Bld) [Volume fraction] 31.3 % Low 36.0-45.0 The [facility] Comment on above: Order Comment: No: D o not add to previous draw Performed By: #### 8 [id number] #### [facility] [address] [place] [address], [facility] Hemoglobin (Bld) [Mass/Vol] 10.2 g/dL Low 12.0-15.0 The [facility] Comment on above: Order Comment: No: D o not add to previous draw Performed By: #### 8 [id number] #### [facility] [address] [facility] [place] [place] [address], [facility] IMMATURE GRANS 0.8 % Normal 0.0-1.0 The [facility] Comment on above: Order Comment: No: D o not add to previous draw Performed By: #### 8 [id number] #### [facility] [address] [place] [address], [facility] Lymphocytes (Bld) [#/Vol] 1.9 10*3/uL Normal 1.2-4.0 The [facility] Comment on above: Order Comment: No: D o not add to previous draw Performed By: #### 8 [id number] #### [facility] [address] [place] [address], [facility] Lymphocytes/100 WBC (Bld) 19.4 % Low 20.0-45.0 The [facility] Comment on above: Order Comment: No: D o not add to previous draw Performed By: #### 8 [id number] #### [facility] [address] [facility] [place] [place] [address], [facility] MCH (RBC) [Entitic mass] 27.5 pg Normal 27.0-33.0 The [facility] Comment on above: Order Comment: No: D o not add to previous draw Performed By: #### 8 [id number] #### [facility] [address] [place] [address], [facility] MCHC (RBC) [Mass/Vol] 32.6 g/dL Normal 32.0-35.0 The [facility] Comment on above: Order Comment: No: D o not add to previous draw Performed By: #### 8 [id number] #### [facility] [address] [place] [address], [facility] MCV (RBC) [Entitic vol] 84.4 fL Normal 82.0-98.0 The [facility] Comment on above: Order Comment: No: D o not add to previous draw Performed By: #### 8 [id number] #### [facility] [address] [place] [address], [facility] Monocytes (Bld) [#/Vol] 1.3 10*3/uL High 0.1-1.0 The [facility] Comment on above: Order Comment: No: D o not add to previous draw Performed By: #### 8 [id number] #### [facility] [address] [place] [id number], [facility] MONOS 13.1 % High 5.0-12.0 The [facility] Comment on above: Order Comment: No: D o not add to previous draw Performed By: #### 8 [id number] #### [facility] [address] [place] [address], [facility] Neutrophils/100 WBC (Bld) 64.1 % Normal 40.0-72.0 The [facility] Comment on above: Order Comment: No: D o not add to previous draw Performed By: #### 8 [id number] #### [facility] [address] [facility] [place] [id number], [facility] Nucleated RBC/100 WBC (Bld) [Ratio] 0 % Normal 0-0 The [facility] Comment on above: Order Comment: No: D o not add to previous draw Performed By: #### 8 [id number] #### [facility] [address] [facility] [place] [address], [place] PLAT CNT 233 10*3/uL Normal 150-400 The [facility] Comment on above: Order Comment: No: D o not add to previous draw Performed By: #### 8 [id number] #### [facility] [address] [place] [address], [facility] RBC (Bld) [#/Vol] 3.71 10*6/uL Low 3.80-5.00 The [facility] Comment on above: Order Comment: No: D o not add to previous draw Performed By: #### 8 [id number] #### [facility] [address] [place] [address], [facility] WBC (Bld) [#/Vol] 9.85 10*3/uL Normal 4.00-10.60 The [facility] Comment on above: Order Comment: No: D o not add to previous draw Performed By: #### 8 [id number] #### [facility] [address] [place] [address], [facility] CTA ABDOMEN AND PELVISon CTA ABDOMEN AND PELVIS [facility] Department of Radiology [address] [place] [id number] ======== Patient Name: MARIMAR PATEL : 1955 Sex: F Age: Race: White Pt. Location: [id number] Patient Status: D Ordered Date: 07/02/2022 8:20:00 [...] achievable Electronically signed: Yuni Zhu. Transcribed by: [email or web address], User Resident: Electronically Signed by: YUNI ZHU @ 07/12/2022 01:12 PM Normal The [facility] Comment on above: Order Comment: No: D o not add to previous draw No collection time noted on specimen or requisition. The collection time recorded is the time of receipt in the lab. CTA CHESTon 07-02-2022 CTA CHEST [facility] Department of Radiology [address] [place] [id number] ======== Patient Name: MARIMAR PATEL : 1955 Sex: F Age: Race: White Pt. Location: [id number] Patient Status: D Ordered Date: 07/02/2022 8:20:00 [...] 3 cusped view, anterior view and no 3RD PRESSMAN-CAU view are obtained in 3-D volume rendered [...] calcification. Electronically signed: Yuni Zhu. Transcribed by: [email or web address], User Resident: Electronically Signed by: YUNI ZHU @ 07/12/2022 01:06 PM Normal The [facility] Comment on above: Order Comment: No: D o not add to previous draw No collection time noted on specimen or requisition. The collection time recorded is the time of receipt in the lab. Cardiovascular Lab Reporton 07-02-2022 Cardiovascular Lab Report [facility] Patient Name: Amanda [facility] MR #: [id number] Department of Physician: Alex Kelly MRy Division of Service Date: 07/01/2022 Cardiology Birthdate: 1955 Adult Cardiovascular Room #: [id number] [facility] [address] [facility]. [place] [address] Cardiovascular Laboratory Report CLINICAL PRESENTATION: The patient [...] ultrasound guidance and micropuncture access technique, a 6-Citizen Of [place] sheath was placed in right common femoral [...] exchanges were made over the J-tip guidewire, 6-Citizen Of [place] [place] JL4 was used to engage the left main coronary artery. A 6-Citizen Of [place] JR4 was used to engage the right coronary artery. 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 The 6-Citizen [place] JR4 was also used to engage the [...] Betts M.D. Date Trans: 07/02/2022 10:08 A/abdiaziz [id number] cc: Nik Bell M.D. [address] [id number] Normal [facility] MAGNESIUM BLOODon 07-02-2022 Magnesium [Mass/Vol] 1.9 mg/dL Normal 1.9-2.7 [facility] Comment on above: Order Comment: No: D o not add to previous draw Performed By: #### 8 [id number] #### [facility] [address] [facility] [place] [address], [facility] POC GLUCOSE LABon 07-02-2022 Glucose [Mass/Vol] 185 mg/dL High 70-100 [facility] Comment on above: Performed By: #### 1 0070, 10799, 33887 #### [facility] [address] [facility] [place] [address], [place] Glucose [Mass/Vol] 193 mg/dL High 70-100 [facility] Comment on above: Performed By: #### 1 0070, 12962, 92383 #### [facility] [address] [place] [address], [facility] Glucose [Mass/Vol] 173 mg/dL High 70-100 [facility] Comment on above: Performed By: #### 8 [id number] #### [facility] [address] [place] [address], [place] Glucose [Mass/Vol] 255 mg/dL High 70-100 [facility] Comment on above: Performed By: #### 8 [id number] #### [facility] [address] [place] [address], [facility] Glucose [Mass/Vol] 268 mg/dL High 70-100 [facility] Comment on above: Performed By: #### 8 [id number] #### [facility] [address] [facility] [place] [address], [facility] UFH HEPARIN ASSAYon 07-02-20 22 UNFRACTIONATED HEPARIN <0.10 Critically low 0.30-0.70 [facility] Comment on above: Result Comment: RESU LTS CHECKED AND CALLED. ACCURATELY READ BACK BY Jessa Schaefer RN at 2200 PMW 07-02-22. Rivaroxaban and Apixaban will interfere with the anti Xa assay used to monitor UFH and LMWH. Performed By: #### 3 5200 #### [facility] [address] [place] [address], [facility] BASIC METABOLIC PANELon 06-11 Calcium [Mass/Vol] 8.5 mg/dL Low 8.6-10.3 [facility] Comment on above: Order Comment: No: D o not add to previous draw Performed By: #### 0 0071, 71079 #### [facility] [address] [place] [address], [facility] Chloride [Moles/Vol] 105 mmol/L Normal 98-107 [facility] Comment on above: Order Comment: No: D o not add to previous draw Performed By: #### 0 0071, 27069 #### [facility] [address] [place] [address], [place] CO2 [Moles/Vol] 22 mmol/L Normal 21-31 [facility] Comment on above: Order Comment: No: D o not add to previous draw Performed By: #### 0 0071, 45357 #### [facility] [address] [place] [address], [place] Creatinine [Mass/Vol] 0.57 mg/dL Low 0.60-1.20 [facility] Comment on above: Order Comment: No: D o not add to previous draw Performed By: #### 0 0071, 11674 #### [facility] [address] [place] [address], [place] GFR/1.73 sq M.predicted among non-blacks MDRD (S/P/Bld) [Vol rate/Area] mL/min/{1.73_m2} Normal >60 [facility] Comment on above: Order Comment: No: D o not add to previous draw Result Comment: [facility]'s estimated glomerular filtration rate (eGFR) will no [...] of individuals. Performed By: #### 0 0071, 24540 #### [facility] [address] [place] [address], [place] Glucose [Mass/Vol] 164 mg/dL High 70-100 [facility] Comment on above: Order Comment: No: D o not add to previous draw Performed By: #### 0 0071, 04508 #### [facility] [address] [place] [address], [place] Potassium [Moles/Vol] 3.8 mmol/L Normal 3.5-5.1 [facility] Comment on above: Order Comment: No: D o not add to previous draw Performed By: #### 0 0071, 40853 #### [facility] [address] [place] [address], [facility] Sodium [Moles/Vol] 137 mmol/L Normal 136-145 [facility] Comment on above: Order Comment: No: D o not add to previous draw Performed By: #### 0 0071, 32557 #### [facility] [address] [facility] [place] Urea nitrogen [Mass/Vol] 18 mg/dL Normal 7-25 [facility] Comment on above: Order Comment: No: D o not add to previous draw Performed By: #### 0 0071, 42516 #### [facility] [address] CBC W/DIFFon 07-01-2022 ABS IMM GRANS 0.1 10*3/uL Normal 0.0-0.2 [facility] Comment on above: Order Comment: No: D o not add to previous draw Performed By: #### 8 [id number] #### [facility] [address] [facility] [place] [address], [facility] ABS NEUTROPHILS 5.1 10*3/uL Normal 1.6-7.6 [facility] Comment on above: Order Comment: No: D o not add to previous draw Performed By: #### 8 [id number] #### [facility] [address] [facility] [place] [place] [address], [facility] Basophils (Bld) [#/Vol] 0.1 10*3/uL Normal 0.0-0.2 [facility] Comment on above: Order Comment: No: D o not add to previous draw Performed By: #### 8 [id number] #### [facility] [address] [facility] [place] [address], [facility] Basophils/100 WBC (Bld) 0.6 % Normal 0.0-1.0 [facility] Comment on above: Order Comment: No: D o not add to previous draw Performed By: #### 8 [id number] #### [facility] [address] [place] [address], [facility] Eosinophils (Bld) [#/Vol] 0.3 10*3/uL Normal 0.0-0.5 [facility] Comment on above: Order Comment: No: D o not add to previous draw Performed By: #### 8 [id number] #### [facility] [address] [place] [address], [facility] Eosinophils/100 WBC (Bld) 2.8 % Normal 0.0-6.0 [facility] Comment on above: Order Comment: No: D o not add to previous draw Performed By: #### 8 [id number] #### [facility] [address] [facility] Erythrocyte distribution width (RBC) [Ratio] 13.3 % Normal 11.5-15.0 [facility] Comment on above: Order Comment: No: D o not add to previous draw Performed By: #### 8 [id number] #### [facility] [address] [facility] [place] [address], [facility] Hematocrit (Bld) [Volume fraction] 32.6 % Low 36.0-45.0 [facility] Comment on above: Order Comment: No: D o not add to previous draw Performed By: #### 8 [id number] #### [facility] [address] [facility] [place] [address], [facility] Hemoglobin (Bld) [Mass/Vol] 10.6 g/dL Low 12.0-15.0 [facility] Comment on above: Order Comment: No: D o not add to previous draw Performed By: #### 8 [id number] #### [facility] [address] [place] [address], [facility] IMMATURE GRANS 0.7 % Normal 0.0-1.0 [facility] Comment on above: Order Comment: No: D o not add to previous draw Performed By: #### 8 [id number] #### [facility] [address] [place] [address], [facility] Lymphocytes (Bld) [#/Vol] 2.4 10*3/uL Normal 1.2-4.0 [facility] Comment on above: Order Comment: No: D o not add to previous draw Performed By: #### 8 [id number] #### [facility] [address] [place] [address], [facility] Lymphocytes/100 WBC (Bld) 26.6 % Normal 20.0-45.0 [facility] Comment on above: Order Comment: No: D o not add to previous draw Performed By: #### 8 [id number] #### [facility] [address] [place] [address], [facility] MCH (RBC) [Entitic mass] 27.0 pg Normal 27.0-33.0 [facility] Comment on above: Order Comment: No: D o not add to previous draw Performed By: #### 8 [id number] #### [facility] [address] [place] [address], [facility] MCHC (RBC) [Mass/Vol] 32.5 g/dL Normal 32.0-35.0 [facility] Comment on above: Order Comment: No: D o not add to previous draw Performed By: #### 8 [id number] #### [facility] [address] [place] [id number], [facility] MCV (RBC) [Entitic vol] 83.0 fL Normal 82.0-98.0 [facility] Comment on above: Order Comment: No: D o not add to previous draw Performed By: #### 8 [id number] #### [facility] [address] [place] [id number], [facility] Monocytes (Bld) [#/Vol] 1.2 10*3/uL High 0.1-1.0 [facility] Comment on above: Order Comment: No: D o not add to previous draw Performed By: #### 8 [id number] #### [facility] [address] [place] [id number], [facility] MONOS 13.0 % High 5.0-12.0 [facility] Comment on above: Order Comment: No: D o not add to previous draw Performed By: #### 8 [id number] #### [facility] [address] [place] [address], [facility] Neutrophils/100 WBC (Bld) 56.3 % Normal 40.0-72.0 [facility] Comment on above: Order Comment: No: D o not add to previous draw Performed By: #### 8 [id number] #### [facility] [address] [place] [address], [facility] Nucleated RBC/100 WBC (Bld) [Ratio] 0 % Normal 0-0 [facility] Comment on above: Order Comment: No: D o not add to previous draw Performed By: #### 8 [id number] #### [facility] [address] [place] [id number], [place] PLAT CNT 247 10*3/uL Normal 150-400 [facility] Comment on above: Order Comment: No: D o not add to previous draw Performed By: #### 8 [id number] #### [facility] [address] [place] [id number], [facility] RBC (Bld) [#/Vol] 3.93 10*6/uL Normal 3.80-5.00 [facility] Comment on above: Order Comment: No: D o not add to previous draw Performed By: #### 8 [id number] #### [facility] [address] [place] [id number], [place] WBC (Bld) [#/Vol] 9.05 10*3/uL Normal 4.00-10.60 [facility] Comment on above: Order Comment: No: D o not add to previous draw Performed By: #### 8 [id number] #### [facility] [address] [place] [address], [place] MAGNESIUM BLOODon 07-01-2022 Magnesium [Mass/Vol] 1.7 mg/dL Low 1.9-2.7 [facility] Comment on above: Order Comment: No: D o not add to previous draw Performed By: #### 0 0071, 12148 #### [facility] [address] [place] [address], [place] POC GLUCOSE LABon 07-01-2022 Glucose [Mass/Vol] 176 mg/dL High 70-100 [facility] Comment on above: Performed By: #### 8 [id number] #### [facility] [address] [place] [address], [place] Glucose [Mass/Vol] 185 mg/dL High 70-100 [facility] Comment on above: Performed By: #### 8 5499 #### [facility] [address] [place] [address], [place] Glucose [Mass/Vol] 174 mg/dL High 70-100 [facility] Comment on above: Performed By: #### 8 5499 #### [facility] [address] [place] [address], [place] Glucose [Mass/Vol] 160 mg/dL High 70-100 [facility] Comment on above: Performed By: #### 8 [id number] #### [facility] [address] [place] [address], [place] Glucose [Mass/Vol] 253 mg/dL High 70-100 [facility] Comment on above: Performed By: #### 8 [id number] #### [facility] [address] [place] [address], [place] UFH HEPARIN ASSAYon 07-01-20 22 UNFRACTIONATED HEPARIN 0.88 IU/mL High 0.30-0.70 Th e [facility] Comment on above: Result Comment: [place] roxaban and Apixaban will interfere with the anti Xa assay used to monitor UFH and LMWH. Performed By: #### 3 5200 #### [facility] [address] [place] [address], [facility] BASIC METABOLIC PANELon 08-2 Calcium [Mass/Vol] 8.5 mg/dL Low 8.6-10.3 [facility] Comment on above: Order Comment: No: D o not add to previous draw Performed By: #### 1 0070, 50875, 32224 #### [facility] [address] [place] [address], [facility] Chloride [Moles/Vol] 103 mmol/L Normal 98-107 [facility] Comment on above: Order Comment: No: D o not add to previous draw Performed By: #### 1 0070, 83096, 95643 #### [facility] [address] [place] [address], [facility] CO2 [Moles/Vol] 25 mmol/L Normal 21-31 [facility] Comment on above: Order Comment: No: D o not add to previous draw Performed By: #### 1 0070, 43777, 56436 #### [facility] [address] [place] [address], [facility] Creatinine [Mass/Vol] 0.50 mg/dL Low 0.60-1.20 [facility] Comment on above: Order Comment: No: D o not add to previous draw Performed By: #### 1 0070, 51320, 12090 #### [facility] [address] [place] [address], [facility] GFR/1.73 sq M.predicted among non-blacks MDRD (S/P/Bld) [Vol rate/Area] mL/min/{1.73_m2} Normal >60 [facility] Comment on above: Order Comment: No: D o not add to previous draw Result Comment: [facility]'s estimated glomerular filtration rate (eGFR) [...] of individuals. Performed By: #### 1 0, 39353, 46824 #### [facility] [address] [place] [address], [facility] Glucose [Mass/Vol] 166 mg/dL High 70-100 [facility] Comment on above: Order Comment: No: D o not add to previous draw Performed By: #### 1 0, 55321, 79404 #### [facility] [address] [place] [address], [facility] Potassium [Moles/Vol] 3.3 mmol/L Low 3.5-5.1 [facility] Comment on above: Order Comment: No: D o not add to previous draw Performed By: #### 1 69, 73783, 92892 #### [facility] [address] [facility] [place] [address], [facility] Sodium [Moles/Vol] 138 mmol/L Normal 136-145 [facility] Comment on above: Order Comment: No: D o not add to previous draw Performed By: #### 1 69, 76321, 11661 #### [facility] [address] [facility] [place] [address], [facility] Urea nitrogen [Mass/Vol] 17 mg/dL Normal 7-25 [facility] Comment on above: Order Comment: No: D o not add to previous draw Performed By: #### 1 69, 78072, 68733 #### [facility] [address] [place] [address], [facility] CBC W/DIFFon 06-30-2022 ABS IMM GRANS 0.1 10*3/uL Normal 0.0-0.2 [facility] Comment on above: Order Comment: No: D o not add to previous draw No collection time noted on specimen or requisition. The collection time recorded is the time of receipt in the lab. Performed By: #### 3 5200 #### [facility] [address] [place] [address], [facility] ABS NEUTROPHILS 4.4 10*3/uL Normal 1.6-7.6 [facility] Comment on above: Order Comment: No: D o not add to previous draw No collection time noted on specimen or requisition. The collection time recorded is the time of receipt in the lab. Performed By: #### 3 5200 #### [facility] [address] Basophils (Bld) [#/Vol] 0.1 10*3/uL Normal 0.0-0.2 [facility] Comment on above: Order Comment: No: D o not add to previous draw No collection time noted on specimen or requisition. The collection time recorded is the time of receipt in the lab. Performed By: #### 3 5200 #### [facility] [address] Basophils/100 WBC (Bld) 0.6 % Normal 0.0-1.0 [facility] Comment on above: Order Comment: No: D o not add to previous draw No collection time noted on specimen or requisition. The collection time recorded is the time of receipt in the lab. Performed By: #### 3 5200 #### [facility] [address] [place] [address], [facility] Eosinophils (Bld) [#/Vol] 0.3 10*3/uL Normal 0.0-0.5 [facility] Comment on above: Order Comment: No: D o not add to previous draw No collection time noted on specimen or requisition. The collection time recorded is the time of receipt in the lab. Performed By: #### 3 5200 #### [facility] [address] [place] [address], [facility] Eosinophils/100 WBC (Bld) 3.3 % Normal 0.0-6.0 [facility] Comment on above: Order Comment: No: D o not add to previous draw No collection time noted on specimen or requisition. The collection time recorded is the time of receipt in the lab. Performed By: #### 3 5200 #### [facility] [address] Erythrocyte distribution width (RBC) [Ratio] 13.2 % Normal 11.5-15.0 [facility] Comment on above: Order Comment: No: D o not add to previous draw No collection time noted on specimen or requisition. The collection time recorded is the time of receipt in the lab. Performed By: #### 3 5200 #### [facility] [address] Hematocrit (Bld) [Volume fraction] 35.3 % Low 36.0-45.0 [facility] Comment on above: Order Comment: No: D o not add to previous draw No collection time noted on specimen or requisition. The collection time recorded is the time of receipt in the lab. Performed By: #### 3 5200 #### [facility] [address] Hemoglobin (Bld) [Mass/Vol] 11.2 g/dL Low 12.0-15.0 [facility] Comment on above: Order Comment: No: D o not add to previous draw No collection time noted on specimen or requisition. The collection time recorded is the time of receipt in the lab. Performed By: #### 3 5200 #### [facility] [address] [place] [address], [facility] IMMATURE GRANS 0.7 % Normal 0.0-1.0 [facility] Comment on above: Order Comment: No: D o not add to previous draw No collection time noted on specimen or requisition. The collection time recorded is the time of receipt in the lab. Performed By: #### 3 5200 #### [facility] [address] [place] [address], [facility] Lymphocytes (Bld) [#/Vol] 2.3 10*3/uL Normal 1.2-4.0 [facility] Comment on above: Order Comment: No: D o not add to previous draw No collection time noted on specimen or requisition. The collection time recorded is the time of receipt in the lab. Performed By: #### 3 5200 #### [facility] [address] [place] [address], [facility] Lymphocytes/100 WBC (Bld) 28.1 % Normal 20.0-45.0 [facility] Comment on above: Order Comment: No: D o not add to previous draw No collection time noted on specimen or requisition. The collection time recorded is the time of receipt in the lab. Performed By: #### 3 5200 #### [facility] [address] [place] [address], [facility] MCH (RBC) [Entitic mass] 26.3 pg Low 27.0-33.0 [facility] Comment on above: Order Comment: No: D o not add to previous draw No collection time noted on specimen or requisition. The collection time recorded is the time of receipt in the lab. Performed By: #### 3 5200 #### [facility] [address] [place] [address], [facility] MCHC (RBC) [Mass/Vol] 31.7 g/dL Low 32.0-35.0 [facility] Comment on above: Order Comment: No: D o not add to previous draw No collection time noted on specimen or requisition. The collection time recorded is the time of receipt in the lab. Performed By: #### 3 5200 #### [facility] [address] [place] [address], [facility] MCV (RBC) [Entitic vol] 82.9 fL Normal 82.0-98.0 [facility] Comment on above: Order Comment: No: D o not add to previous draw No collection time noted on specimen or requisition. The collection time recorded is the time of receipt in the lab. Performed By: #### 3 5200 #### [facility] [address] Monocytes (Bld) [#/Vol] 1.1 10*3/uL High 0.1-1.0 [facility] Comment on above: Order Comment: No: D o not add to previous draw No collection time noted on specimen or requisition. The collection time recorded is the time of receipt in the lab. Performed By: #### 3 5200 #### [facility] [address] MONOS 13.3 % High 5.0-12.0 [facility] Comment on above: Order Comment: No: D o not add to previous draw No collection time noted on specimen or requisition. The collection time recorded is the time of receipt in the lab. Performed By: #### 3 5200 #### [facility] [address] Neutrophils/100 WBC (Bld) 54.0 % Normal 40.0-72.0 [facility] Comment on above: Order Comment: No: D o not add to previous draw No collection time noted on specimen or requisition. The collection time recorded is the time of receipt in the lab. Performed By: #### 3 5200 #### [facility] [address] Nucleated RBC/100 WBC (Bld) [Ratio] 0 % Normal 0-0 [facility] Comment on above: Order Comment: No: D o not add to previous draw No collection time noted on specimen or requisition. The collection time recorded is the time of receipt in the lab. Performed By: #### 3 5200 #### [facility] [address] [place] [address], [facility] PLAT CNT 256 10*3/uL Normal 150-400 [facility] Comment on above: Order Comment: No: D o not add to previous draw No collection time noted on specimen or requisition. The collection time recorded is the time of receipt in the lab. Performed By: #### 3 [id number] #### [facility] [address] [place] [address], [facility] RBC (Bld) [#/Vol] 4.26 10*6/uL Normal 3.80-5.00 [facility] Comment on above: Order Comment: No: D o not add to previous draw No collection time noted on specimen or requisition. The collection time recorded is the time of receipt in the lab. Performed By: #### 3 [id number] #### [facility] [address] [facility] [place] [address], [facility] WBC (Bld) [#/Vol] 8.18 10*3/uL Normal 4.00-10.60 [facility] Comment on above: Order Comment: No: D o not add to previous draw No collection time noted on specimen or requisition. The collection time recorded is the time of receipt in the lab. Performed By: #### 3 [id number] #### [facility] [address] [facility] [place] [address], [facility] MAGNESIUM BLOODon 06-30-2022 Magnesium [Mass/Vol] 1.8 mg/dL Low 1.9-2.7 [facility] Comment on above: Order Comment: No: D o not add to previous draw Performed By: #### 1 0070, [id number], [id number] #### [facility] [address] [place] [address], [place] POC GLUCOSE LABon 06-30-2022 Glucose [Mass/Vol] 206 mg/dL High 70-100 [facility] Comment on above: Performed By: #### 1 0, [id number], [id number] #### [facility] [address] [place] [address], [place] Glucose [Mass/Vol] 346 mg/dL High 70-100 [facility] Comment on above: Performed By: #### 1 0070, [id number], [id number] #### [facility] [address] [place] [address], [facility] Glucose [Mass/Vol] 266 mg/dL High 70-100 [facility] Comment on above: Performed By: #### 8 [id number] #### [facility] [address] [facility] TROPONIN-Ion 06-30-2022 Troponin I.cardiac [Mass/Vol] 1.03 ng/mL Critically high 0.00-0.04 [facility] Comment on above: Result Comment: M-KS EVIOUS CRITICAL RESULT REFERENCE RANGES: 0.00 - 0.04 ng/ml NORMAL 0.05 - 0.50 ng/ml INDETERMINATE > 0.50 ng/ml CONSISTENT WITH AN M.I. Performed By: #### 1 0070, [id number], [id number] #### [facility] [address] UFH HEPARIN ASSAYon 06-30-20 22 UNFRACTIONATED HEPARIN 0.85 IU/mL High 0.30-0.70 Th e [facility] Comment on above: Result Comment: Racheal roxaban and Apixaban will interfere with the anti Xa assay used to monitor UFH and LMWH. Performed By: #### 3 1791 #### [facility] [address] [facility] UNFRACTIONATED HEPARIN 0.61 IU/mL Normal 0.30-0.70 Th e [facility] Comment on above: Result Comment: Racheal roxaban and Apixaban will interfere with the anti Xa assay used to monitor UFH and LMWH. Performed By: #### 8 [id number] #### [facility] [address] [place] [address], [facility] UNFRACTIONATED HEPARIN 0.70 IU/mL Normal 0.30-0.70 Th e [facility] Comment on above: Result Comment: [place] roxaban and Apixaban will interfere with the anti Xa assay used to monitor UFH and LMWH. Performed By: #### 3 [id number] #### [facility] [address] CBC COMPLETE BLOOD COUNTon 06-29-2022 Erythrocyte distribution width (RBC) [Ratio] 13.3 % Normal 11.5-15.0 [facility] Comment on above: Order Comment: No: D o not add to previous draw No collection time noted on specimen or requisition. The collection time recorded is the time of receipt in the lab. Performed By: #### 3 [id number] #### [facility] [address] [place] [address], [facility] Erythrocyte distribution width (RBC) [Ratio] 13.4 % Normal 11.5-15.0 [facility] Comment on above: Order Comment: No: D o not add to previous draw Performed By: #### 8 [id number] #### [facility] [address] [place] [address], [facility] Hematocrit (Bld) [Volume fraction] 33.4 % Low 36.0-45.0 [facility] Comment on above: Order Comment: No: D o not add to previous draw No collection time noted on specimen or requisition. The collection time recorded is the time of receipt in the lab. Performed By: #### 3 [id number] #### [facility] [address] [place] [address], [facility] Hematocrit (Bld) [Volume fraction] 34.3 % Low 36.0-45.0 [facility] Comment on above: Order Comment: No: D o not add to previous draw Performed By: #### 8 [id number] #### [facility] [address] [place] [address], [facility] Hemoglobin (Bld) [Mass/Vol] 10.8 g/dL Low 12.0-15.0 [facility] Comment on above: Order Comment: No: D o not add to previous draw No collection time noted on specimen or requisition. The collection time recorded is the time of receipt in the lab. Performed By: #### 3 5200 #### [facility] [address] [place] [address], [facility] Hemoglobin (Bld) [Mass/Vol] 11.3 g/dL Low 12.0-15.0 [facility] Comment on above: Order Comment: No: D o not add to previous draw Performed By: #### 8 [id number] #### [facility] [address] [place] [address], [place] MCH (RBC) [Entitic mass] 26.8 pg Low 27.0-33.0 [facility] Comment on above: Order Comment: No: D o not add to previous draw No collection time noted on specimen or requisition. The collection time recorded is the time of receipt in the lab. Performed By: #### 3 [id number] #### [facility] [address] [place] [address], [place] MCH (RBC) [Entitic mass] 27.2 pg Normal 27.0-33.0 [facility] Comment on above: Order Comment: No: D o not add to previous draw Performed By: #### 8 [id number] #### [facility] [address] [place] [address], [facility] MCHC (RBC) [Mass/Vol] 32.3 g/dL Normal 32.0-35.0 [facility] Comment on above: Order Comment: No: D o not add to previous draw No collection time noted on specimen or requisition. The collection time recorded is the time of receipt in the lab. Performed By: #### 3 [id number] #### [facility] [address] [place] [address], [place] MCHC (RBC) [Mass/Vol] 32.9 g/dL Normal 32.0-35.0 [facility] Comment on above: Order Comment: No: D o not add to previous draw Performed By: #### 8 [id number] #### [facility] [address] [place] [address], [place] MCV (RBC) [Entitic vol] 82.9 fL Normal 82.0-98.0 [facility] Comment on above: Order Comment: No: D o not add to previous draw No collection time noted on specimen or requisition. The collection time recorded is the time of receipt in the lab. Performed By: #### 3 [id number] #### [facility] [address] [place] [id number], [facility] MCV (RBC) [Entitic vol] 82.7 fL Normal 82.0-98.0 [facility] Comment on above: Order Comment: No: D o not add to previous draw Performed By: #### 8 [id number] #### [facility] [address] [facility] [place] [address], [facility] Nucleated RBC/100 WBC (Bld) [Ratio] 0 % Normal 0-0 [facility] Comment on above: Order Comment: No: D o not add to previous draw No collection time noted on specimen or requisition. The collection time recorded is the time of receipt in the lab. Performed By: #### 3 [id number] #### [facility] [address] [facility] [place] [address], [facility] Nucleated RBC/100 WBC (Bld) [Ratio] 0 % Normal 0-0 [facility] Comment on above: Order Comment: No: D o not add to previous draw Performed By: #### 8 [id number] #### [facility] [address] [facility] [place] [address], [facility] PLAT CNT 227 10*3/uL Normal 150-400 [facility] Comment on above: Order Comment: No: D o not add to previous draw No collection time noted on specimen or requisition. The collection time recorded is the time of receipt in the lab. Performed By: #### 3 [id number] #### [facility] [address] [place] [id number], [facility] PLAT CNT 234 10*3/uL Normal 150-400 [facility] Comment on above: Order Comment: No: D o not add to previous draw Performed By: #### 8 [id number] #### [facility] [address] [place] [address], [facility] RBC (Bld) [#/Vol] 4.03 10*6/uL Normal 3.80-5.00 [facility] Comment on above: Order Comment: No: D o not add to previous draw No collection time noted on specimen or requisition. The collection time recorded is the time of receipt in the lab. Performed By: #### 3 [id number] #### [facility] [address] [facility] [place] [place] [address], [facility] RBC (Bld) [#/Vol] 4.15 10*6/uL Normal 3.80-5.00 [facility] Comment on above: Order Comment: No: D o not add to previous draw Performed By: #### 8 [id number] #### [facility] [address] [facility] [place] [place] [address], [facility] WBC (Bld) [#/Vol] 7.85 10*3/uL Normal 4.00-10.60 [facility] Comment on above: Order Comment: No: D o not add to previous draw No collection time noted on specimen or requisition. The collection time recorded is the time of receipt in the lab. Performed By: #### 3 [id number] #### [facility] [address] [facility] [place] [place] [address], [facility] WBC (Bld) [#/Vol] 7.28 10*3/uL Normal 4.00-10.60 [facility] Comment on above: Order Comment: No: D o not add to previous draw Performed By: #### 8 [id number] #### [facility] [address] [facility] [place] [place] [address], [facility] CBC W/DIFFon 06-29-2022 ABS IMM GRANS 0.0 10*3/uL Normal 0.0-0.2 [facility] Comment on above: Order Comment: No co llection time noted on specimen or requisition. The collection timerecorded is the time of receipt in the lab. Performed By: #### 8 [id number] #### [facility] [address] [facility] [place] [id number], [facility] ABS NEUTROPHILS 5.2 10*3/uL Normal 1.6-7.6 [facility] Comment on above: Order Comment: No co llection time noted on specimen or requisition. The collection timerecorded is the time of receipt in the lab. Performed By: #### 8 [id number] #### [facility] [address] [facility] [place] [id number], [facility] Basophils (Bld) [#/Vol] 0.0 10*3/uL Normal 0.0-0.2 [facility] Comment on above: Order Comment: No co llection time noted on specimen or requisition. The collection timerecorded is the time of receipt in the lab. Performed By: #### 8 [id number] #### [facility] [address] [facility] [place] [address], [facility] Basophils/100 WBC (Bld) 0.5 % Normal 0.0-1.0 [facility] Comment on above: Order Comment: No co llection time noted on specimen or requisition. The collection timerecorded is the time of receipt in the lab. Performed By: #### 8 [id number] #### [facility] [address] [facility] [place] [id number], [facility] Eosinophils (Bld) [#/Vol] 0.1 10*3/uL Normal 0.0-0.5 [facility] Comment on above: Order Comment: No co llection time noted on specimen or requisition. The collection timerecorded is the time of receipt in the lab. Performed By: #### 8 [id number] #### [facility] [address] [place] [address], [facility] Eosinophils/100 WBC (Bld) 1.3 % Normal 0.0-6.0 [facility] Comment on above: Order Comment: No co llection time noted on specimen or requisition. The collection timerecorded is the time of receipt in the lab. Performed By: #### 8 [id number] #### [facility] [address] Erythrocyte distribution width (RBC) [Ratio] 13.3 % Normal 11.5-15.0 [facility] Comment on above: Order Comment: No co llection time noted on specimen or requisition. The collection timerecorded is the time of receipt in the lab. Performed By: #### 8 [id number] #### [facility] [address] Hematocrit (Bld) [Volume fraction] 34.0 % Low 36.0-45.0 [facility] Comment on above: Order Comment: No co llection time noted on specimen or requisition. The collection timerecorded is the time of receipt in the lab. Performed By: #### 8 [id number] #### [facility] [address] Hemoglobin (Bld) [Mass/Vol] 11.4 g/dL Low 12.0-15.0 [facility] Comment on above: Order Comment: No co llection time noted on specimen or requisition. The collection timerecorded is the time of receipt in the lab. Performed By: #### 8 [id number] #### [facility] [address] IMMATURE GRANS 0.4 % Normal 0.0-1.0 [facility] Comment on above: Order Comment: No co llection time noted on specimen or requisition. The collection timerecorded is the time of receipt in the lab. Performed By: #### 8 [id number] #### [facility] [address] Lymphocytes (Bld) [#/Vol] 1.5 10*3/uL Normal 1.2-4.0 [facility] Comment on above: Order Comment: No co llection time noted on specimen or requisition. The collection timerecorded is the time of receipt in the lab. Performed By: #### 8 [id number] #### [facility] [address] Lymphocytes/100 WBC (Bld) 19.5 % Low 20.0-45.0 [facility] Comment on above: Order Comment: No co llection time noted on specimen or requisition. The collection timerecorded is the time of receipt in the lab. Performed By: #### 8 [id number] #### [facility] [address] MCH (RBC) [Entitic mass] 27.7 pg Normal 27.0-33.0 [facility] Comment on above: Order Comment: No co llection time noted on specimen or requisition. The collection timerecorded is the time of receipt in the lab. Performed By: #### 8 [id number] #### [facility] [address] MCHC (RBC) [Mass/Vol] 33.5 g/dL Normal 32.0-35.0 [facility] Comment on above: Order Comment: No co llection time noted on specimen or requisition. The collection timerecorded is the time of receipt in the lab. Performed By: #### 8 [id number] #### [facility] [address] MCV (RBC) [Entitic vol] 82.7 fL Normal 82.0-98.0 [facility] Comment on above: Order Comment: No co llection time noted on specimen or requisition. The collection timerecorded is the time of receipt in the lab. Performed By: #### 8 [id number] #### [facility] [address] [place] [address], [facility] Monocytes (Bld) [#/Vol] 1.0 10*3/uL Normal 0.1-1.0 [facility] Comment on above: Order Comment: No co llection time noted on specimen or requisition. The collection timerecorded is the time of receipt in the lab. Performed By: #### 8 [id number] #### [facility] [address] [place] [address], [facility] MONOS 12.5 % High 5.0-12.0 [facility] Comment on above: Order Comment: No co llection time noted on specimen or requisition. The collection timerecorded is the time of receipt in the lab. Performed By: #### 8 [id number] #### [facility] [address] [facility] [place] [place] [address], [facility] Neutrophils/100 WBC (Bld) 65.8 % Normal 40.0-72.0 [facility] Comment on above: Order Comment: No co llection time noted on specimen or requisition. The collection timerecorded is the time of receipt in the lab. Performed By: #### 8 [id number] #### [facility] [address] Nucleated RBC/100 WBC (Bld) [Ratio] 0 % Normal 0-0 [facility] Comment on above: Order Comment: No co llection time noted on specimen or requisition. The collection timerecorded is the time of receipt in the lab. Performed By: #### 8 [id number] #### [facility] [address] [place] [address], [facility] PLAT CNT 235 10*3/uL Normal 150-400 [facility] Comment on above: Order Comment: No co llection time noted on specimen or requisition. The collection timerecorded is the time of receipt in the lab. Performed By: #### 8 [id number] #### [facility] [address] [place] [address], [facility] RBC (Bld) [#/Vol] 4.11 10*6/uL Normal 3.80-5.00 [facility] Comment on above: Order Comment: No co llection time noted on specimen or requisition. The collection timerecorded is the time of receipt in the lab. Performed By: #### 8 [id number] #### [facility] [address] [facility] [place] [place] [address], [facility] WBC (Bld) [#/Vol] 7.91 10*3/uL Normal 4.00-10.60 [facility] Comment on above: Order Comment: No co llection time noted on specimen or requisition. The collection timerecorded is the time of receipt in the lab. Performed By: #### 8 [id number] #### [facility] [address] [facility]. [address] COMP METABOLIC PANELon 06-29 Albumin [Mass/Vol] 2.9 g/dL Low 3.5-5.7 [facility] Comment on above: Order Comment: No: D o not add to previous draw No collection time noted on specimen or requisition. The collection time recorded is the time of receipt in the lab. Performed By: #### 3 [id number] #### [facility] [address] [facility] [place] [place] [address], [facility] ALKALINE PHOSPH 88 IU/L Normal 34-104 [facility] Comment on above: Order Comment: No: D o not add to previous draw No collection time noted on specimen or requisition. The collection time recorded is the time of receipt in the lab. Performed By: #### 3 [id number] #### [facility] [address] [facility]. [address] ALT [Catalytic activity/Vol] 21 U/L Normal 7-52 [facility] Comment on above: Order Comment: No: D o not add to previous draw No collection time noted on specimen or requisition. The collection time recorded is the time of receipt in the lab. Performed By: #### 3 [id number] #### [facility] [address] [facility] [place] [place] [address], [facility] AST [Catalytic activity/Vol] 27 U/L Normal 13-39 [facility] Comment on above: Order Comment: No: D o not add to previous draw No collection time noted on specimen or requisition. The collection time recorded is the time of receipt in the lab. Performed By: #### 3 1791 #### [facility] [address] [place] [address], [facility] Bilirubin [Mass/Vol] 0.5 mg/dL Normal 0.3-1.0 [facility] Comment on above: Order Comment: No: D o not add to previous draw No collection time noted on specimen or requisition. The collection time recorded is the time of receipt in the lab. Performed By: #### 3 1791 #### [facility] [address] [place] [address], [facility] Calcium [Mass/Vol] 8.2 mg/dL Low 8.6-10.3 [facility] Comment on above: Order Comment: No: D o not add to previous draw No collection time noted on specimen or requisition. The collection time recorded is the time of receipt in the lab. Performed By: #### 3 1791 #### [facility] [address] [place] [address], [place] Chloride [Moles/Vol] 101 mmol/L Normal 98-107 [facility] Comment on above: Order Comment: No: D o not add to previous draw No collection time noted on specimen or requisition. The collection time recorded is the time of receipt in the lab. Performed By: #### 3 1791 #### [facility] [address] [place] [address], [place] CO2 [Moles/Vol] 22 mmol/L Normal 21-31 [facility] Comment on above: Order Comment: No: D o not add to previous draw No collection time noted on specimen or requisition. The collection time recorded is the time of receipt in the lab. Performed By: #### 3 1791 #### [facility] [address] [place] [address], [place] Creatinine [Mass/Vol] 0.45 mg/dL Low 0.60-1.20 [facility] Comment on above: Order Comment: No: D o not add to previous draw No collection time noted on specimen or requisition. The collection time recorded is the time of receipt in the lab. Performed By: #### 3 1791 #### [facility] [address] [place] [address], [facility] GFR/1.73 sq M.predicted among non-blacks MDRD (S/P/Bld) [Vol rate/Area] mL/min/{1.73_m2} Normal >60 [facility] Comment on above: Order Comment: No: D o not add to previous draw No collection time noted on specimen or requisition. The collection time recorded is the time of receipt in the lab. Result Comment: [facility]'s estimated glomerular filtration rate (eGFR) will no [...] individuals. Performed By: #### 3 [id number] #### [facility] [address] [facility] [place] [place] [address], [facility] Glucose [Mass/Vol] 278 mg/dL High 70-100 [facility] Comment on above: Order Comment: No: D o not add to previous draw No collection time noted on specimen or requisition. The collection time recorded is the time of receipt in the lab. Performed By: #### 3 1791 #### [facility] [address] [facility] [place] [address], [facility] Potassium [Moles/Vol] 3.8 mmol/L Normal 3.5-5.1 [facility] Comment on above: Order Comment: No: D o not add to previous draw No collection time noted on specimen or requisition. The collection time recorded is the time of receipt in the lab. Performed By: #### 3 1791 #### [facility] [address] Protein [Mass/Vol] 5.3 g/dL Low 6.0-8.3 [facility] Comment on above: Order Comment: No: D o not add to previous draw No collection time noted on specimen or requisition. The collection time recorded is the time of receipt in the lab. Performed By: #### 3 [id number] #### [address] [address] Sodium [Moles/Vol] 133 mmol/L Low 136-145 The [facility] Comment on above: Order Comment: No: D o not add to previous draw No collection time noted on specimen or requisition. The collection time recorded is the time of receipt in the lab. Performed By: #### 3 1791 #### [address] Urea nitrogen [Mass/Vol] 19 mg/dL Normal 7-25 The [facility] Comment on above: Order Comment: No: D o not add to previous draw No collection time noted on specimen or requisition. The collection time recorded is the time of receipt in the lab. Performed By: #### 3 1791 #### [address] CTA CHESTon 06-29-2022 CTA CHEST [facility] Department of Radiology [address] [place] [id number] ======== Patient Name: MARIMAR PATEL : 1955 Sex: F Age: Race: White Pt. Location: [facility] Patient Status: E Ordered Date: [...] report. Electronically signed: Shane Baldwin. Transcribed by: [email or web address], User Resident: HILL RUSS Electronically Signed by: SHANE BALDWIN @ 06/29/2022 01:00 AM I personally read this/these film(s) with this resident Normal The [facility] Comment on above: Order Comment: Pulmo nary Embolism HEMOGLOBIN A1Con 06-29-2022 Glucose [Moles/Vol] 111 mmol/L Normal The [facility] Comment on above: Order Comment: No: D o not add to previous draw No collection time noted on specimen or requisition. The collection time recorded is the time of receipt in the lab. Performed By: #### 3 1791 #### [facility] [address] [place] [address], [facility] HbA1c (Bld) [Mass fraction] 5.5 % Normal 4.0-6.0 The [facility] Comment on above: Order Comment: No: D o not add to previous draw No collection time noted on specimen or requisition. The collection time recorded is the time of receipt in the lab. Performed By: #### 3 1791 #### [facility] [address] [place] [address], [facility] LIPID PROFILEon 06-29-2022 Cholesterol [Mass/Vol] 223 mg/dL High 120-200 Th e [facility] Comment on above: Result Comment: CHOL ESTEROL REFERENCE RANGE: 20 YEARS AND OLDER CARDIOVASCULAR RISK Less than 200 mg/dl Low Risk 200 to 239 mg/dl Borderline Risk 240 mg/dl and greater High Risk Performed By: #### 3 1791 #### [facility] [address] [place] [address], [facility] Cholesterol in HDL [Mass/Vol] 28 mg/dL Normal 23-92 The [facility] Comment on above: Result Comment: Slig ht variation in normal range could be due to gender and/or age. HDL CHOLESTEROL REFERENCE RANGE: 20 years and older Cardiovascular Risk > or =60 mg/dL Desirable 40 TO 59 mg/dL Low Risk <40 mg/dL High Risk Performed By: #### 3 1791 #### [facility] [address] [place] [address], [place] Cholesterol in LDL [Mass/Vol] 138 mg/dL High 0-130 The [facility] Comment on above: Result Comment: LDL IS A CALCULATION LDL IS ONLY VALID IF THE TRIG IS LESS THAN 400. Performed By: #### 3 1791 #### [facility] [address] [place] [address], [place] Cholesterol.total/Chol esterol in HDL [Mass ratio] 8.0 {ratio} High .0-4.5 The [facility] Comment on above: Performed By: #### 3 1791 #### [facility] [address] [place] [address], [place] NON-HDL CHOLESTEROL 195 mg/dL Normal The [facility] Comment on above: Performed By: #### 3 1791 #### [facility] [address] [place] [address], [place] Triglyceride [Mass/Vol] 285 mg/dL High 40-149 The [facility] Comment on above: Result Comment: TRIG LYCERIDE REFERENCE RANGE: 20 YEARS AND OLDER CARDIOVASCULAR RISK LESS THAN 150 mg/dl LOW RISK 150 TO 199 mg/dl BORDERLINE RISK 200 mg/dl AND GREATER HIGH RISK Performed By: #### 3 1791 #### [facility] [address] [place] [address], [place] VLDL CHOL 57 mg/dL High 0-40 The [facility] Comment on above: Performed By: #### 3 1791 #### [facility] [address] [place] [address], [place] POC GLUCOSE LABon 06-29-2022 Glucose [Mass/Vol] 304 mg/dL High 70-100 The [facility] Comment on above: Performed By: #### 1 0070, [id number], [id number] #### [facility] [address] [place] [address], [facility] Glucose [Mass/Vol] 444 mg/dL High 70-100 The [facility] Comment on above: Performed By: #### 1 0070, [id number], [id number] #### [facility] [address] [place] [address], [place] Glucose [Mass/Vol] 256 mg/dL High 70-100 The [facility] Comment on above: Performed By: #### 8 5499 #### [facility] [address] [facility] [place] [address], [place] Glucose [Mass/Vol] 190 mg/dL High 70-100 [facility] Comment on above: Performed By: #### 8 5499 #### [facility] [address] [facility] [place] [place] [id number] [place] [address] POC SARS COV2 ANTIGEN NEGATI VEon 06-29-2022 POC SARS COV2 ANTIGEN NEG Negative Normal NEGATIVE The [facility] Comment on above: Result Comment: Nega tive [...] antigen from SARS-CoV-2 in direct nasopharyngeal swab (COMPOSITE SCIENCE TEACHER) specimens from individuals who are suspected of [...] Accreditation. Performed By: #### 8 5499 #### [facility] [address] TROPONIN-Ion 06-29-2022 Troponin I.cardiac [Mass/Vol] 1.77 ng/mL Critically high 0.00-0.04 The [facility] Comment on above: Order Comment: No: D [...] M.I. Performed By: #### 3 1791 #### [facility] [address] Troponin I.cardiac [Mass/Vol] 1.52 ng/mL Critically high 0.00-0.04 The [facility] Comment on above: Order Comment: No: D o not add to previous draw No collection time noted on specimen or requisition. The collection time recorded is the time of receipt in the lab. Result Comment: M-KS EVIOUS CRITICAL RESULT REFERENCE RANGES: 0.00 - 0.04 ng/ml NORMAL 0.05 - 0.50 ng/ml INDETERMINATE > 0.50 ng/ml CONSISTENT WITH AN M.I. Performed By: #### 3 5200 #### [facility] [address] TSH3 WITH REFLEX FT4on 06-29 TSH 3RD GENERATION 1.96 uIU/mL Normal 0.34-5.60 The [facility] Comment on above: Performed By: #### 3 1791 #### [facility] [address] [place] [address], [facility] UFH HEPARIN ASSAYon 06-29-20 UNFRACTIONATED HEPARIN <0.10 Critically low 0.30-0.70 The [facility] Comment on above: Result Comment: RESU LTS CHECKED AND CALLED. ACCURATELY READ BACK BY REG KILGORE RN @ 0531 Rivaroxaban and Apixaban will interfere with the anti Xa assay used to monitor UFH and LMWH. Performed By: #### 3 5200 #### [facility] [address] [place] [address], [facility] UNFRACTIONATED HEPARIN <0.10 Critically low 0.30-0.70 The [facility] Comment on above: Result Comment: Resu lt checked and called. Accurately read back by JENNIFER WILLINGHAM RN @1404 06/29/22 Rivaroxaban and Apixaban will interfere with the anti Xa assay used to monitor UFH and LMWH. Performed By: #### 3 5200 #### [facility] [address] [place] [address], [facility] UNFRACTIONATED HEPARIN 0.15 IU/mL Critically low 0.30-0.70 The [facility] Comment on above: Result Comment: RESU LTS CHECKED AND CALLED. ACCURATELY READ BACK BY Isabela Shannon RN at 2220 PMW 06-29-22. Rivaroxaban and Apixaban will interfere with the anti Xa assay used to monitor UFH and LMWH. Performed By: #### 3 1791 #### [facility] [address] [place] [address], [facility] APTTon 2022 aPTT Coag (Bld) [Time] 32.0 s Normal 25.0-35.0 Th e [facility] Comment on above: Result Comment: ALL RESULTS [...] PURPOSE. Performed By: #### 3 5200 #### [facility] [address] [place] [address], [facility] BNPon 2022 Natriuretic peptide B (Bld) [Mass/Vol] 3794.0 pg/mL Critically high <=900.0 [facility] Comment on above: Performed By: #### C BC #### [facility] [address] [address] [address] Sruthi Arechiga CARDIAC TONJA ADMITon 022 CK [Catalytic activity/Vol] 51 U/L Normal 26-192 [facility] Comment on above: Performed By: #### C BC #### [facility] [address] [address] [address] Sruthi Arechiga CK.MB [Mass/Vol] 2.23 ng/mL Normal <=3.60 The [facility] Comment on above: Performed By: #### C BC #### [facility] [address] [address] [address] Sruthi Arechiga HSTROP 705.8 pg/mL Critically high 4.0-51.3 The [facility] Comment on above: Result Comment: CUT- OFF POINTS HAVE BEEN ESTABLISHED BASED ON THE FOURTH UNIVERSAL DEFINITIONS OF MYOCARDIAL INFARCTION. THE UPPER REFERENCE LIMIT (URL) OF TROPONIN, DEFINED THE 99TH PERCENTILE OF cTnI DISTRIBUTION IN A REFERENCE POPULATION, HAS BEEN CONFIRMED THE DECISION THRESHOLD FOR DE DIAGNOSIS. Performed By: #### C BC #### [facility] [address] [place] [address] Dr. Sruthi Arechiga DIMITRY 73 ng/mL Normal 9-82 The [facility] Comment on above: Performed By: #### C BC #### [facility] [address] [address] [address] Sruthi Arechiga CBC W MANUAL DIFFon 06-28-20 22 ATYPICAL LYMPH # Normal The [facility] Comment on above: Performed By: #### C LIMAN ####[facility] [address] [address]Dr. Sruthi Arechiga ATYPICAL LYMPH % Normal The [facility] Comment on above: Performed By: #### C PITA ####[facility] [address] [id number]. Yilan Arechiga BAND # 0.1 103/ul Normal 0.0-0.3 The [facility] Comment on above: Performed By: #### C BCMAN ####[facility] [address] [address]Dr. Yilan Arechiga BAND % 1 % Normal 0-5 The [facility] Comment on above: Performed By: #### C BCMAN ####[facility] [address] [address]Dr. Yilan Arechiga BASOM # 0.00 103/ul Normal 0.00-0.10 The [facility] Comment on above: Performed By: #### C BCJOSE ANGEL ####[facility] [address] [place], [place] [address]Dr. Sruthi Arechiga BASOM % 0.0 % Critically low 0.2-2.0 The [facility] Comment on above: Performed By: #### C BCJOSE ANGEL ####[facility] [address] [place], [place] [address]Dr. Yilan Arechiga BLAST # Normal The [facility] Comment on above: Performed By: #### C BCJOSE ANGEL ####[facility] [address] [place], [place] [address]Dr. Yilan Arechiga BLAST % Normal The [facility] Comment on above: Performed By: #### C PITA ####[facility] [address] [place], [place] [address]Dr. Sruthi Arechiga CORRECTED WBC Normal 4.0-11.0 The [facility] Comment on above: Performed By: #### C BCJOSE ANGEL ####[facility] [address] [address]Dr. Yisven Arechiga EOS # 0.13 103/ul Normal 0.00-0.70 The [facility] Comment on above: Performed By: #### C BCJOSE ANGEL ####[facility] [address] [address]Dr. Yisven Arechiga EOS% 1.0 % Normal 0.9-7.0 The [facility] Comment on above: Performed By: #### C BCJOSE ANGEL ####[facility] [address] [place], [place] [address]Up. Sruthi Arechiga HCT 38.8 % Normal 36.0-48.0 The [facility] Comment on above: Performed By: #### C PITA ####[facility] [address] [place], [place] [address]Os. Sruthi Arechiga HGB 12.5 g/dl Normal 12.0-16.0 The [facility] Comment on above: Performed By: #### C PITA ####[facility] [address] [id number]. Sruthi Arechiga LYMPHM # 1.51 103/ul Normal 1.20-3.80 The [facility] Comment on above: Performed By: #### C PITA ####[facility] [address] [id number]. Sruthi Arechiga LYMPHM% 12.0 % Critically low 20.5-60.0 The [facility] Comment on above: Performed By: #### C PITA ####[facility] [address] [id number]. Sruthi Arechiga MCH 27.2 pg Normal 26.7-34.0 The [facility] Comment on above: Performed By: #### C PITA ####[facility] [address] [id number]. Sruthi Arechiga MCHC 32.2 g/dl Normal 29.9-35.2 The [facility] Comment on above: Performed By: #### C PITA ####[facility] [address] [id number]. Sruthi Arechiga MCV 84.3 fL Normal 81.0-99.0 The [facility] Comment on above: Performed By: #### C PITA ####[facility] [address] [id number]. Sruthi Arechiga METAMYELOCYTE # Normal The [facility] Comment on above: Performed By: #### C PITA ####[facility] [address] [phone]. Sruthi Arechiga METAMYELOCYTE % Normal The [facility] Comment on above: Performed By: #### C PITA ####[facility] [address] [place], [place] [address]Js. Sruthi Arechiga MONOM# 1.64 103/ul Critically high 0.30-0.80 [facility] Comment on above: Performed By: #### C PITA ####[facility] [address] [place], [place] [address]Ng. rSuthi Arechiga MONOM% 13.0 % Critically high 1.7-12.0 The [facility] Comment on above: Performed By: #### C PITA ####[facility] [address] [place], [place] [address]Eu. Sruthi Arechiga MPV 11.7 fL Normal 9.5-13.5 [facility] Comment on above: Performed By: #### C PITA ####[facility] [address] [place], [place] [address]Mb. Sruthi Arechiga MYELOCYTE # Normal The [facility] Comment on above: Performed By: #### C PITA ####[facility] [address] [place], [place] [address]Ne. Sruthi Arechiga MYELOCYTE % Normal The [facility] Comment on above: Performed By: #### C PITA ####[facility] [address] [place], [place] [address]Lb. Sruthi Arechiga NRBC Normal The [facility] Comment on above: Performed By: #### C PITA ####[facility] [address] [place], [place] [address]Ai. Sruthi Arechiga PLT 237 103/ul Normal 150-450 The [facility] Comment on above: Performed By: #### C PITA ####[facility] [address] [place], [place] [address]Tb. Sruthi Arechiga RBC 4.60 106/ul Normal 4.20-5.40 The [facility] Comment on above: Performed By: #### C PITA ####[facility] [address] [place], [place] [address]Sa. Sruthi Arechiga RDW 13.2 % Normal 11.0-15.0 The [facility] Comment on above: Performed By: #### C LIJOSE ANGEL ####[facility] [address] [place], [place] [address]Ck. Sruthi Arechiga SEG # 9.20 103/ul Critically high 1.40-6.50 The [facility] Comment on above: Performed By: #### C PITA ####[facility] [address] [place], [place] [address]Al. Sruthi Arechiga SEG % 73.0 % Normal 43.0-75.0 The [facility] Comment on above: Performed By: #### C PITA ####[facility] [address] [place], [place] [address]Hj. Sruthi Arechiga WBC 12.6 103/ul Critically high 4.0-11.0 The [facility] Comment on above: Performed By: #### C PITA ####[facility] [address] [phone]. Sruthi Arechiga Covid-19 PCR (CVDTB)on 06-10 SARS-CoV-2 (COVID-19) RNA KOLE+probe Ql (Unsp spec) Not detected Normal NOT DETECTED The [facility] Comment on above: Result Comment: When [...] for this test is supported by the [place] of [employer] and Human Service's declaration that [...] be used). Performed By: #### C VDTB ####[facility] [address] [phone]. Sruthi Arechiga LIPASEon 2022 Lipase [Catalytic activity/Vol] 75.0 U/L Normal 73.0-393.0 [facility] Comment on above: Performed By: #### C BC #### [facility] [address] [place] [address] Dr. Sruthi Arechiga POINT OF CARE GLUCOSEon 06-10 Glucose [Mass/Vol] 351 mg/dL Critically high 74-106 [facility] Comment on above: Performed By: #### C VDTBH #### [facility] [address] [place] [address] Dr. Sruthi Arechiga PROF 14(COMP METB)on 022 Albumin [Mass/Vol] 2.5 g/dL Critically low 3.4-5.0 [facility] Comment on above: Performed By: #### C MP #### [facility] [address] [place] [address] Dr. Sruthi Arechiga Albumin/Globulin [Mass ratio] 0.6 {ratio} Normal [facility] Comment on above: Performed By: #### C MP #### [facility] [address] [place] [address] Dr. Sruthi Arechiga ALP [Catalytic activity/Vol] 132 U/L Critically high 46-116 [facility] Comment on above: Performed By: #### C MP #### [facility] [address] [place] [address] Dr. Sruthi Arechiga ALT [Catalytic activity/Vol] 32 U/L Normal 14-59 [facility] Comment on above: Performed By: #### C MP #### [facility] [address] [place] [address] Dr. Sruthi Arechiga Anion gap [Moles/Vol] 19.2 mmol/L Normal [facility] Comment on above: Performed By: #### C MP #### [facility] [address] [place] [address] Dr. Sruthi Arechiga AST [Catalytic activity/Vol] 24 U/L Normal 15-37 [facility] Comment on above: Performed By: #### C MP #### [facility] [address] [address] [address] Sruthi Arechiga Bilirubin [Mass/Vol] 0.5 mg/dL Normal 0.2-1.0 [facility] Comment on above: Performed By: #### C MP #### [facility] [address] [address] [address] Sruthi Arechiga Calcium [Mass/Vol] 9.5 mg/dL Normal 8.5-10.1 [facility] Comment on above: Performed By: #### C MP #### [facility] [address] [address] [address] Sruthi Arechiga Chloride [Moles/Vol] 95 mmol/L Critically low 98-107 [facility] Comment on above: Performed By: #### C MP #### [facility] [address] [place] [address] Dr. Sruthi Arechiga CO2 [Moles/Vol] 20.3 mmol/L Critically low 21.0-32.0 [facility] Comment on above: Performed By: #### C MP #### [facility] [address] [address] [address] Sruthi Arechiga Creatinine [Mass/Vol] 0.78 mg/dL Normal 0.55-1.02 [facility] Comment on above: Performed By: #### C MP #### [facility] [address] [place] [address] Dr. Sruthi Arechiga EGFR-AF SERBIAN >60 Normal >=60 [facility] Comment on above: Performed By: #### C MP #### [facility] [address] [address] [address] Sruthi Arechiga EGFR-NON AF SERBIAN >60 Normal >=60 [facility] Comment on above: Performed By: #### C MP #### [facility] [address] [address] [address] Sruthi Arechiga Globulin (S) [Mass/Vol] 4.3 g/dL Normal [facility] Comment on above: Performed By: #### C MP #### [facility] [address] [address] [address] Sruthi Arechiga Glucose [Mass/Vol] 389 mg/dL Critically high 74-106 [facility] Comment on above: Performed By: #### C MP #### [facility] [address] [address] [address] Sruthi Arechiga Potassium [Moles/Vol] 3.5 mmol/L Normal 3.5-5.1 [facility] Comment on above: Performed By: #### C MP #### [facility] [address] [address] [address] Sruthi Arechiga Protein [Mass/Vol] 6.8 g/dL Normal 6.4-8.2 [facility] Comment on above: Performed By: #### C MP #### [facility] [address] [address] [address] Sruthi Arechiga Sodium [Moles/Vol] 131 mmol/L Critically low 136-145 [facility] Comment on above: Performed By: #### C MP #### [facility] [address] [address] [address] Sruthi Arechiga Urea nitrogen [Mass/Vol] 24.0 mg/dL Critically high 7.0-18.0 [facility] Comment on above: Performed By: #### C MP #### [facility] [address] [place] [address] Dr. Sruthi Arechiga Urea nitrogen/Creatinine [Mass ratio] 30.8 mg/mg Normal [facility] Comment on above: Performed By: #### C MP #### [facility] [address] [address] [address] Sruthi Arechiga PROTHROMBIN TIMEon 2 INR Coag (PPP) [Relative time] 1.01 {INR} Normal 0.91-1.16 The [facility] Comment on above: Result Comment: ACCC P [...] 1995;[id number]. Performed By: #### 3 5200 #### [facility] [address] [facility]. [address] PT Coag (PPP) [Time] 13.3 s Normal 12.3-14.8 [facility] Comment on above: Result Comment: ALL RESULTS MUST BE INTERPRETED WITH RESPECT TO BLOOD DRAWING ARTIFACT OR DILUTION ERROR OF ANTICOAGULANT AT THE TIME OF SAMPLING. Performed By: #### 3 5200 #### [facility] [address] [facility]. [address] PROTIMEon 2022 INR Coag (PPP) [Relative time] 0.98 {INR} Normal [facility] Comment on above: Performed By: #### C VDTBH #### [facility] [address] [place] [address] Dr. Sruthi Arechiga INR GUIDELINES SEE BELOW Normal [facility] Comment on above: Result Comment: JESSICA RED INR: 2.0 - 3.0 CONDITIONS NOT LISTED BELOW 2.5 - 3.5 FOR PROSTHETIC HEART VALVE REPLACEMENT 2.5 - 3.5 RECURRENT THROMBOSIS Performed By: #### C VDTBH #### [facility] [address] [place] [address] Dr. Sruthi Arechiga PT Coag (PPP) [Time] 10.6 s Normal 9.0-11.6 [facility] Comment on above: Performed By: #### C VDTBH #### [facility] [address] [place] [address] Dr. Sruthi Arechiga PTTon 2022 aPTT Coag (Bld) [Time] 32.5 s Normal 22.3-36.2 [facility] Comment on above: Performed By: #### C VDTBH #### [facility] [address] [place] [id number] Dr. Sruthi Arechiga TROPONIN, HIGH SENSITIVITYon 2022 HSTROP 1816.7 pg/mL Critically high 4.0-51.3 [facility] Comment on above: Result Comment: CUT- OFF POINTS HAVE BEEN ESTABLISHED BASED ON THE FOURTH UNIVERSAL DEFINITIONS OF MYOCARDIAL INFARCTION. THE UPPER REFERENCE LIMIT (URL) OF TROPONIN, DEFINED THE 99TH PERCENTILE OF cTnI DISTRIBUTION IN A REFERENCE POPULATION, HAS BEEN CONFIRMED THE DECISION THRESHOLD FOR DE DIAGNOSIS. Performed By: #### C BC #### [facility] [address] [address] [address] Sruthi Arechiga HSTROP 4940.1 pg/mL Critically high 4.0-51.3 [facility] [place] [facility] Comment on above: Result Comment: CUT- OFF POINTS HAVE BEEN ESTABLISHED BASED ON THE FOURTH UNIVERSAL DEFINITIONS OF MYOCARDIAL INFARCTION. THE UPPER REFERENCE LIMIT (URL) OF TROPONIN, DEFINED THE 99TH PERCENTILE OF cTnI DISTRIBUTION IN A REFERENCE POPULATION, HAS BEEN CONFIRMED THE DECISION THRESHOLD FOR DE DIAGNOSIS. Performed By: #### H STROPN #### [facility] [address] [place], [place] [address] Dr. Sruthi Arechiga TSHon 2022 TSH 3.865 uIU/mL Critically high 0.358-3.740 [facility] Comment on above: Performed By: #### T SH, LIPA, BNP, CMADM ####[facility] [id number] [place], [place] [address]HlDr. Sruthi Arechiga UFH HEPARIN ASSAYon 06-28-20 UNFRACTIONATED HEPARIN <0.10 Critically low 0.30-0.70 [facility] Comment on above: Order Comment: No: D [...] LMWH. Performed By: #### 3 5200 #### [facility] [address] [place] [address], [place] XR CHEST 1 Von 2022 XR CHEST [...] by: GERMAIN COY Date: 2022 06:58 Normal [facility] Social History Date Type Detail Facility Start: 12-11-2023 Sex Assigned At N Upd[facility] Other Start: 12-11-2023 Alcohol intake Lifetime non-d maren (finding) [facility] Start: 12-11-2023 History of Social function [facility] Start: 01-13-2023 End: 06-12-2023 Tobacco smoking status NHIS Never smoked tobacco (finding) [facility] Start: 1955 Sex Assigned At Female F [facility] Start: 1955 Sex Assigned At Not on file N [facility] Vital Signs Date Time Vital Sign Value Performing Clinician Facility 12-11-2023 16:15-0500 Body height 157.5 cm Alexis Gilmore DPM Work Phone: [facility] 12-11-2023 16:15-0500 Body mass index (BMI) [Ratio] 29.26 kg/m2 Alexis Gilmore DPM Work Phone: [facility] 12-11-2023 16:15-0500 Body weight 72.58 kg Alexis Gilmore DPM Work Phone: [facility] 12-11-2023 16:15-0500 Diastolic blood pressure 80 mm[Hg] Alexis Gilmore DPM Work Phone: [facility] 12-11-2023 16:15-0500 Heart rate 77 /min Alexis Gilmore DPM Work Phone: [facility] 12-11-2023 16:15-0500 Systolic blood pressure 130 mm[Hg] Alexis Gilmore DPM Work Phone: [facility] 02-19-2023 10:30-0400 Body height 157.48 cm Sabrina Borden Other [facility] Other 02-19-2023 10:30-0400 Body mass index (BMI) [Ratio] 28.35 kg/m2 Sabrina Borden Other [facility] Other 02-19-2023 10:30-0400 Body temperature 97.8 [degF] Sabrina Suha Other [facility] Other 02-19-2023 10:30-0400 Body weight 70.31 kg Sabrina Suha Other [facility] Other 02-19-2023 10:30-0400 Diastolic blood pressure 64 mm[Hg] Sabrina Borden Other [facility] Other 02-19-2023 10:30-0400 SaO2% (BldA) [Mass fraction] 95 % Sabrina Borden Other [facility] Other 02-19-2023 10:30-0400 Systolic blood pressure 112 mm[Hg] Sabrina Borden Other [facility] Other 01-13-2023 16:30-0500 Diastolic blood pressure 57 mm[Hg] II Nik Bell Work Phone: [facility] 01-13-2023 16:30-0500 Heart rate 63 /min II Nik Bell Work Phone: [facility] 01-13-2023 16:30-0500 Respiratory rate 16 /min II Nik Bell Work Phone: [facility] 01-13-2023 16:30-0500 SaO2% (BldA) [Mass fraction] 95 % II Nik Bell Work Phone: [facility] 01-13-2023 16:30-0500 Systolic blood pressure 123 mm[Hg] II Nik Bell Work Phone: [facility] 01-13-2023 14:00-0500 Inhaled oxygen flow rate 2 L/min II Nik Bell Work Phone: [facility] 01-13-2023 11:42-0500 Body height 157.48 cm II Nik Bell Work Phone: [facility] 01-13-2023 11:42-0500 Body weight 68.49 kg II Nik Bell Work Phone: [facility] 01-09-2023 08:30-0500 Body height 157.48 cm Geo Mathew Other [facility] Other 01-09-2023 08:30-0500 Body mass index (BMI) [Ratio] 28.35 kg/m2 Geo Mathew Other [facility] Other 01-09-2023 08:30-0500 Body temperature 97.8 [degF] Geo Mathew Other [facility] Other 01-09-2023 08:30-0500 Body weight 70.31 kg Geo Mathew Other [facility] Other 01-09-2023 08:30-0500 Diastolic blood pressure 68 mm[Hg] Geo Priyanka Other [facility] Other 01-09-2023 08:30-0500 SaO2% (BldA) [Mass fraction] 95 % Geo Priyanka Other [facility] Other 01-09-2023 08:30-0500 Systolic blood pressure 112 mm[Hg] Geo Priyanka Other [facility] Other 09-20-2021 13:00-0500 Body height 157.48 cm Geo Priyanka Other [facility] Other 09-20-2021 13:00-0500 Body mass index (BMI) [Ratio] 31.09 kg/m2 Geo Priyanka Other [facility] Other 09-20-2021 13:00-0500 Body weight 77.11 kg Geo Priyanka Other [facility] Other 09-20-2021 13:00-0500 Diastolic blood pressure 69 mm[Hg] Geo Mathew Other [facility] Other 09-20-2021 13:00-0500 Systolic blood pressure 158 mm[Hg] Geo Mathew Other [facility] Other Clinical Notes 09-20-2021 to 02-13-2024 Alexis Gilmore DPM - 12/11/2023 4:30 PM EST Note Date & Type Note Facility 02-13-2024 Note [place] [facility]iology - [facility] Subjective Marimar Patel is a 68 y.o. 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 She is a 68-year-old woman with prior history of coronary artery disease status post bypass surgery in the past, Hypertension and diabetes on treatment. She was admitted on 2022 with NSTEMI and elevated cardiac enzymes. She was discovered to have severe aortic valve stenosis. Cardiac catheterization was performed and did not show targets for revascularization. There were patent 3 out of 4 bypass grafts. Transesophageal echocardiogram confirmed stage D1 severe aortic valve stenosis. She also had atrial fibrillation and was started on Eliquis 5 mg twice daily. Of note that at the time of her bypass surgery in 2012 she had to have reoperation for bleeding and infection. She was evaluated during the hospitalization in June 2022 by cardiothoracic surgery and she was deemed not a candidate for reoperation because of that and other comorbidities. She eventually underwent TAVR on 09/17/2022 using a 26 Medtronic Evolut FX valve via left femoral access. She has severe peripheral vascular disease and in November 2023 underwent lower extremity angiogram with left lower extremity atherectomy and drug-coated balloon angioplasty and stenting by vascular surgery Dr. Padilla. She was recently admitted to the [facility] with ?viral infection, weakness, low blood pressure, diarrhea and amlodipine, carvedilol, hydralazine, insulin and spironolactone were stopped. Today she reports that she is improving after her recent admission to the hospital but she is still feeling weak. Her blood pressure is up today with a systolic of 160. She has shortness of breath on exertion. She denies chest pain, palpitations and leg edema. Review of Systems Constitutional: Positive for malaise/fatigue. Cardiovascular: Positive for dyspnea on exertion. Neurological: Positive for headaches. All other systems reviewed and are negative. Objective Visit Vitals BP 160/50 (BP Location: Right arm, Patient Position: Sitting, BP Cuff Size: Adult) Pulse 73 Resp 13 Ht 1.575 m (5' 2 ) Wt 73.5 kg (162 lb) SpO2 98% BMI 29.63 kg/m??? OB Status Postmenopausal Smoking Status Former BSA 1.79 m??? Physical Exam Constitutional: Appearance: She is well-developed. She is not ill-appearing. HENT: Head: Normocephalic and atraumatic. Nose: Nose normal. Eyes: General: No scleral icterus. Pupils: Pupils are equal, round, and reactive to light. Neck: Thyroid: No thyromegaly. Vascular: No JVD. Cardiovascular: Rate and Rhythm: Normal rate and regular rhythm. Pulses: Radial pulses are 2+ on the right side and 0 on the left side. Heart sounds: Normal heart sounds. No murmur heard. No friction rub. No gallop. Pulmonary: Effort: Pulmonary effort is normal. No respiratory distress. Breath sounds: Normal breath sounds. No wheezing or rales. Chest: Chest wall: No tenderness. Abdominal: General: Bowel sounds are normal. There is no distension. Palpations: Abdomen is soft. Tenderness: There is no abdominal tenderness. Musculoskeletal: General: No swelling. Cervical back: Neck supple. Skin: General: Skin is warm and dry. Neurological: General: No focal deficit present. Mental Status: She is alert and oriented to person, place, and time. Psychiatric: Mood and Affect: Mood normal. Behavior: Behavior is cooperative. Judgment: Judgment normal. Allergies Allergies Allergen Reactions Penicillin Hives Penicillins Hives and Unknown childhood-swelling Medications Current Outpatient Medications: apixaban (ELIQUIS ORAL), Take 5 mg by mouth in the morning and at bedtime., Disp: , Rfl: atorvastatin (Lipitor) 80 mg tablet, Take 80 mg by mouth in the morning., Disp: , Rfl: citalopram (CeleXA) 20 mg tablet, Take 20 mg by mouth in the morning., Disp: , Rfl: clopidogrel (Plavix) 75 mg tablet, Take 1 tablet (75 mg) by mouth in the morning for 98 doses. Do not start before December 06, 2023., Disp: 30 tablet, Rfl: 3 ferrous sulfate 325 (65 Fe) MG tablet, Take 65 mg by mouth in the morning, at noon, and at bed (more content not included)... [facility] 12-19-2023 Note Subjective Patient ID: Marimar Patel [...] and popliteal arteries. On 12/04/[address]illa. Herpostoperative course was uncomplicated. She was DC on Eliquis, plavix, statin. She presents today for follow up. She has reperfusion edema to the right leg with some mild pain but denies claudication. 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 Denies any significant pain or pulsatility to [...] for this visit: PAD (peripheral artery disease) ([facility]) -Patient with reperfusion edema to [...] past 36 hour(s)). No follow-ups on file. [facility] 12-11-2023 History of Present illness Narrative Patient: [...] left leg and patient was transferred to [facility] where she had it angioplasty procedure with increased blood flow noted by patient. She has a type 2 diabetic and presents today for follow up in office. Allergies: Allergies Allergen Reactions Penicillins Hives childhood-swelling Past Medical History: Past Medical History: Diagnosis Date A-fib ([facility]) 2022 with RVR Anxiety Aortic stenosis 06/2022 Carotid artery disease ([facility]) CHF (congestive heart failure) ([facility]) 06/2022 Colon polyp 2016 Diverticulitis DM (diabetes mellitus) ([facility]) HLD (hyperlipidemia) ([facility]) HTN (hypertension) ([facility]) DE (myocardial infarction) ([facility]) NSTEMI, initial episode of care ([facility]) 2022 Medications: Current Outpatient Medications: amLODIPine (Norvasc) [...] positive edema to left foot NEURO: 5.07 [place] monofilament test diminished to digits and forefoot bilaterally 125Hz tuning fork diminished to 1st MPJ bilaterally ORTHO: Minimal pain on palpation to left foot ulcer BRIDGER PVR non readable findings to the left with non pulsatile flow and right of 0.53 DP ASSESSMENT 1. Diabetes mellitus due to underlying condition with diabetic polyneuropathy, unspecified whether medical terminologist insulin use ([facility]) 2. PVD (peripheral vascular disease) ([facility]) 3. Dry gangrene ([facility]) 4. Foot ulcer, left, with fat layer exposed ([facility]) PLAN Sharp debridement with 15 blade of subcutaneous ulceration to left foot with active bleeding noted and removal and excision of fibrotic and necrotic tissue to wound and DSD applied with neosporin. Pt to continue with Betadine daily Reviewed BRIDGER PVRs and patient is to follow up with [facility] for right foot in near future and continue with wound care until follow up in 1 week Alexis Gilmore DPM documented in this encounter [facility] 12-05-2023 Note Hospital Medicine Discharge Summary Final Discharge Diagnosis: # critical limb ischemia , right lower extremity # lower extremity claudication, bilateral # nonoliguric EVA # Atrial fibrillation on Eliquis # coronary artery disease status post CABG # uncontrolled diabetes mellitus type 2 # Hyponatremia Admission Diagnosis: Hyponatremia [E87.1] PAD (peripheral artery disease) ([facility]) [I73.9] Numbness of left lower [...] December 05, 2023. Dear Dr. Ray MD, [place] is advised to follow up with you within 1-2 weeks. Follow-up with: Vascular Surgery Scheduled appointments: Future Appointments Date Time Provider Department Center 12/19/2023 11:00 AM FA[facility] Daily [facility] Your medication list START taking these [...] Your Medications These medications were sent to [id number] - [address] AT [address] [address] clopidogrel 75 mg tablet oxyCODONE-acetaminophen 5-325 mg [...] and care-team, med- (more content not included)... [facility] 12-05-2023 Note [facility] Vascular Surgery DAILY PROGRESS NOTE Subjective [...] be discharged once the ultrasound is done. [facility] 12-05-2023 Note Clinical Nutrition A ssessment: Name: Marimar Patel Room: [address] [place] [address] Date: 1955 Date of Visit: 12/05/23 Admission Dx: Hyponatremia [E87.1] PAD (peripheral artery disease) ([facility]) [I73.9] Numbness of left lower extremity [R20.0] Reason for assessment: high risk Information obtained from: patient, medical record, and nursing Past Medical History: Diagnosis Date A-fib ([facility]) Aortic valve stenosis Coronary artery disease Diabetes mellitus ([facility]) Hypertension Peripheral vascular disease ([facility]) Current Medications: aspirin, 81 mg, [...] Pt reported good po intake and appetite sea captain eating 2-3 meals/d plus snacks. Pt [...] ideal body weight (50 kg) Calorie needs: 1208-3668 kcals/day based on Equation: 25-30 kcal/kg Protein [...] Academy of Nutrition and Dietetics, and the [place] Society of Enteral and Parenteral Nutrition to suppo (more content not included)... [facility] 12-05-2023 Note Occupational Therapy Occupational Therapy Evaluation [...] aortic valve stenosis Coronary artery disease involving quechan coronary artery of quechan heart with angina pectoris ([facility]/HCC) PAF (paroxysmal atrial fibrillation) ([facility]/HCC) Essential hypertension PAD (peripheral artery disease) ([facility]/HCC) Numbness of left lower extremity Past Medical History: Diagnosis Date A-fib (CMS/HCC) Aortic valve stenosis Coronary artery disease Diabetes mellitus (CMS/HCC) Hypertension Peripheral vascular disease ([facility]/HCC) Past Surgical History: Procedure Laterality Date APPENDECTOMY [...] Level of Function Prior Function Level of [place]: Independent with ADLs and functional transfers Prior [...] Sensation Light T (more content not included)... [facility] 12-04-2023 Note Patient: Marimar mccain Procedure Summary Date: 12/04/23 Room / Location: [address] / [facility] Operating Room Anesthesia Start: 1350 Anesthesia Stop: 1625 Procedures: LEFT LOWER EXTREMITY ANGIOGRAM (Left) AORTOGRAM LEFT LOWER EXTREMITY JETSTREAM AND ATHERECTOMY/THROMBECOMY LEFT LOWER EXTREMITY DRUG COATED BALLOON ANGIOPLASTY OF SFA AND POLITEAL ARTERIES LEFT LOWER EXTREMITY DISTAL SFA AND POPLITEAL COVERED STENTING Diagnosis: PAD (peripheral artery disease) (CMS/HCC) (PAD (peripheral artery disease) (CMS/HCC) [I73.9]) Surgeons: Binh Padilla MD Responsible Provider: Charlene Jimenez MD Anesthesia Type: general ASA Status: 3 Anesthesia Type: general Vitals Value Taken Time BP 145/59 12/04/23 1725 Temp 36.7 12/04/23 1730 Pulse 60 12/04/23 1729 Resp 14 12/04/23 1729 SpO2 98 % 12/04/23 172 Vitals shown include unvalidated device data. Anesthesia Post Evaluation Patient location during evaluation: PACU Patient participation: complete - patient participated Level of consciousness: awake Pain score: 0 Pain management: adequate Airway patency: patent Cardiovascular status: acceptable Respiratory status: acceptable Hydration status: acceptable Patient is hemodynamically stable and is able to be discharged from PACU per anesthesia protocol. No notable events documented. [facility] 12-04-2023 Note Patient: Marimar mccain Procedure Summary Date: 12/04/23 Room / Location: [address] / [facility] Operating Room Anesthesia Start: 1350 Anesthesia Stop: Procedures: LEFT LOWER EXTREMITY ANGIOGRAM (Left) AORTOGRAM LEFT LOWER EXTREMITY JETSTREAM AND ATHERECTOMY/THROMBECOMY LEFT LOWER EXTREMITY DRUG COATED BALLOON ANGIOPLASTY OF SFA AND POLITEAL ARTERIES LEFT LOWER EXTREMITY DISTAL SFA AND POPLITEAL COVERED STENTING Diagnosis: PAD (peripheral artery disease) (CMS/HCC) (PAD (peripheral artery disease) (CMS/HCC) [I73.9]) Surgeons: Binh Padilla MD Responsible Provider: Charlene Jimenez MD Anesthesia Type: general ASA Status: 3 Anesthesia Post Transport Note Transport to: PACU O2 Route: face mask Oxygen Flow (L/min): 8 Patient Monitor: direct observation Transport: uneventful Patient condition is: stable [facility] 12-04-2023 Note Patient: Marimar mccain Procedure Information Anesthesia Start Date/Time: 12/04/23 135 Procedure: Lower extremity angiogram (Left) - LLE angiogram possible intervention Location: [facility] OR [facility] / [facility] Operating Room Surgeons: Binh Padilla MD Relevant Problems Cardio (+) Coronary artery disease involving quechan coronary artery of quechan heart with angina pectoris (CMS/HCC) (+) Essential hypertension (+) Nonrheumatic aortic valve stenosis (+) PAD (peripheral artery disease) (CMS/HCC) (+) PAF (paroxysmal atrial fibrillation) ([facility]) Clinical information reviewed: Tobacco Allergies [...] Plan discussed with attending. Additional Equipment Requests [facility] 12-04-2023 Note Airway Date/Time: 12/04/2023 1:58 PM Urgency: elective Airway not difficult General Information and Staff Patient location during procedure: OR Anesthesiologist: Charlene Jimenez MD Resident/REFERENCE ASSISTANT/CAA: Deep Bolton CRNA Performed: resident/REFERENCE ASSISTANT/CAA Indications and Patient Condition Indications for airway [...] Additional Comments 4ml 4% lidocaine lta utilized [facility] 12-04-2023 Note Hospital Medicine Daily Progress Note - 12/04/2023 12:06 PM; Room: [address] [place] [address] Admission: 12/03/2023 4:20 PM; Length of stay: 1 days THE HOSPITALIST TEAM PREFERS TO USE EPIC CHAT FOR COMMUNICATION 7AM-7PM. IF I DO NOT RESPOND WITHIN 15 MINUTES, PLEASE PAGE ME/CALL THROUGH THE CURBER. FROM 7PM-7AM, PLEASE PAGE [phone](COVR) Code Status: Full Code Barriers to Discharge: [...] extremity Active Problems: PAD (peripheral artery disease) ([facility]) Assessment and Plan 1. Right [...] LDL 195 2022 No results found for: BREOWSLD05 , IRON , TIBC , C3 , [...] Does the pa (more content not included)... [facility] 12-03-2023 Note Pharmacy completed a medication reconciliation for Marimar Patel. Patient is a 68 y.o. year old female, 1.575 m (5' 2 ) cm, 72.6 kg (160 lb) kg, CrCl= Estimated Creatinine Clearance: 29.5 mL/min (A) (by C-G formula based on SCr of 1.68 mg/dL (H)). mL/minute. Patient has allergies to: Penicillin and Penicillins . Pt fills at [facility] [phone]. Medication list was obtained from patient's fill history list and patient (pt stated that her knows the medication better but he is not in the room). Home medication list has been updated. Please call pharmacy with any questions. Thank you! Confirmed that patient was doing basaglar 80 units at night (Rx said 86 units) Thanks, [facility] Fiona Nash, PharmD, 12/03/23 [facility] 12-03-2023 Note 12/03/232003 Financial Resource Strain How [...] place to sleep or slept in a intermediate (including now)? N Transportation Needs In the [...] How often do you attend protestant or orthodoxy services? Never Do you belong to any [...] home? 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 Referral Reason Psychosocial assessment Patient Information Primary Caregiver Self Accompanied by/Relationship Activities of Daily Living Assistive Device Cane;Walker (Uses sometimes) Living Arrangement (Current/Prior to Hospitalization) Private residence (Lives at home with and son) Ambulation Minimum assistance (Uses walker or cane sometimes) Dressing Independent Feeding Independent Behavior Oriented Communication Can write;Talks;Understands speaking;Understands Amharic;Reads Income Information Income Source Unemployed Discharge Planning [...] system as her friends, her , her [id number], and her son. Patient endorsed that she [...] past year and denied any alcohol consumption. [facility] 02-19-2023 Evaluation note Encounter Date Diagnosis Assessment [...] office sooner with any issues or concerns. [facility] Other 03-24-2023 NotePROCEDURE: XR WRIST LT MIN 3 V HISTORY: Pain after falling COMPARISON: None. FINDINGS: BONES:No fracture, acute abnormality, or significant arthropathy. SOFT TISSUES:Multiple skin jose within soft tissues lateral to the distal forearm. EFFUSION:None visible. OTHER: Negative. IMPRESSION: 1. No acute bone abnormality. 2. Multifocal mild degenerative joint disease. Electronically authenticated by: GERMAIN COY Date: 2023-01-31 13:10[id number] Evaluation note* Encounter Date [...] clinical exam. I do not have the [place] studies yet. We will reach out to [...] was obtained all her questions were addressed. [employer] Other 08-25-2022 NoteMR#: [id number] I [facility] Pt. Name: Marimar Patel Admitted: 2022 Discharged: [...] Amaya MD Date Trans: 07/03/2022 11:43 P/abdiaziz [id number] cc: Nik Bell M.D. 3 [id number] note* Encounter Date Diagnosis Assessment [...] plan all of her questions were addressed. [employer] Other Evaluation noteNo assessment information available [facility] Work Phone: Evaluation note* Diagnosis Diabetes mellitus due to underlying condition with diabetic polyneuropathy, unspecified whether [place] insulin use (CMS/HCC)- Primary PVD (peripheral vascular disease) (CMS/HCC) Unspecified peripheral vascular disease Dry gangrene (CMS/HCC) Foot ulcer, left, with fat layer exposed ([facility]) documented in this encounter [facility] Narrative - Reported* Type Description Date Medical History carotid stenosis Medical History diverticulitis Medical History DE Medical History DM Medical History hyperlipidemia Medical History HTN Surgical History cholecystectomy Surgical History tonsillectomy Surgical History CABGx2 Surgical History hernia repair Surgical History appendectomy Surgical History quad bypass 2012 Hospitalization History see surgical hx [facility] Other History general Narrative - Reported* Type Description Date Medical History carotid stenosis Medical History diverticulitis Medical History DE Medical History DM Medical History hyperlipidemia Medical History HTN Surgical History cholecystectomy Surgical History tonsillectomy Surgical History CABGx2 Surgical History hernia repair Surgical History appendectomy Surgical History quad bypass 2012 Surgical History Cardiac Stent 2022 Hospitalization History see surgical hx [facility] Other Summary Purpose Family History No Family [...] and content) DATE CREATED AUTHOR 07/13/2022 [facility] DATE CREATED AUTHOR AUTHOR'S ORGANIZ ATION 02/04/2023 [facility] DATE CREATED AUTHOR AUTHOR'S ORGANIZ ATION 03/01/2023 [facility] DATE CREATED AUTHOR AUTHOR'S ORGANIZ ATION 03/19/2024 [facility] DATE CREATED AUTHOR AUTHOR'S ORGANIZ ATION 04/03/2024 [facility] EPIC Care Teams (unrecognized sec tion and content) Team Status: Active Member Role Status Dates Nik Bell II MD Primary Care Provider Active Team Status: Inactive Member Role Status Dates Nik Bell II MD Primary Care Provider Active Geo Mathew MD Attending Provider Active Web Content Executive Relationship Specialty Start Date End Date Nik Bell MD [address] [facility] [address] [place] [address] PCP - General Internal Medicine 03/18/23 FOR [...] BE BASED ON THE PRIMARY CLINICAL RECORDS. [facility]. provides no warranty or guarantee of the accuracy or completeness of information in this document.
--- NOTE | 2024-05-04 18:07 | CT_ITS ---
The [address] [address] Patient Name: MARIMAR MCDANIEL MRN: [id number] date: 1955 Sex: F Assigned Patient Location: ED.MAIN Current Patient Location: Accession/Order Number: [id number] Exam Date: 05/04/2024 19:04 Report Date: 05/04/2024 19:29 At the request of: ANNMARIE MONTANEZ Procedure: CT head/brain wo con EXAM: CT head/brain wo con HISTORY: vision changes COMPARISON: CT brain 01/31/2023 TECHNIQUE: Axial CT scans through the head were obtained without IV contrast administration. Dose reduction techniques were achieved by using: automated exposure control and/or adjustment of mA and /or kV according to patient size and/or use of iterative reconstruction technique. FINDINGS: There is no evidence of acute intracranial hemorrhage or abnormal extra-axial fluid collection. No mass effect or midline shift is seen. There is no evidence of large acute territorial infarction. There is no hydrocephalus. There is a remote lacunar infarct in the left centeno radiata. Mild enlarged ventricles and sulci, consistent with age appropriate cerebral atrophy. Mild decreased attenuation of the supratentorial white matter, likely represents chronic microvascular ischemia. To the limit of CT, the posterior fossa appears unremarkable. There are atherosclerotic calcifications of anterior and posterior circulations. No definite acute fracture is identified. Soft tissues are unremarkable. The visualized orbits show no abnormality. The visualized paranasal sinuses show no air-fluid level. Mastoid air cells are clear. CT/CT head/brain wo con IMPRESSION: No CT evidence of acute intracranial abnormality. If there is sufficient clinical concern for acute brain parenchymal pathology, consider MRI for further evaluation. Mild chronic microvascular ischemia and involutional changes. Remote lacunar infarct in left centeno radiata. Vascular calcifications. Electronically authenticated by: PRO GODOY Date: 05/04/2024 19:29
--- NOTE | 2024-05-04 18:07 | ECG_ITS ---
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
--- NOTE | 2024-05-04 18:34 | ED.GENADUL1 ---
HPI HPI - General Adult General Chief complaint: Neuro Symptoms/Deficit Stated complaint: Visual Disturbance Time Seen by Provider: 05/04/24 17:41 Source: patient and family Mode of arrival: walk-in History of Present Illness HPI narrative: Is in the right eye. She has a history of cataracts in the left eye and typically has some difficulty with her vision in the left eye. However yesterday and today she started having cloudy vision in the right eye. She said it kind of feels like there is a hair in the middle of her vision and also the vision is cloudy. She could not read anything on our eye chart when we tested it. She has no pain no pain with extraocular movements, no Trauma. She is diabetic she is on Eliquis she is on Plavix. No confusion no arm or leg weakness no facial droop or slurred speech. Related Data Home Medications ?Medication ?Instructions ?Recorded ?Confirmed apixaban 5 mg tablet (Eliquis) 5 mg PO BID 02/08/24 02/08/24 atorvastatin 80 mg tablet 80 mg PO DAILY 02/08/24 02/08/24 citalopram 20 mg tablet 20 mg PO DAILY 02/08/24 02/08/24 clopidogrel 75 mg tablet 75 mg PO DAILY 02/08/24 02/08/24 gabapentin 300 mg capsule 300 mg PO BID 02/08/24 02/08/24 insulin regular human 100 unit/mL 02/08/24 injection solution (Novolin R Regular U-100 Insulin) lisinopril 20 mg tablet 20 mg PO DAILY 02/08/24 02/08/24 potassium chloride 20 mEq 20 meq PO BID 02/08/24 02/08/24 tablet,extended release(part/cryst) (Klor-Con M) Previous Rx's ?Medication ?Instructions ?Recorded levofloxacin 500 mg tablet 500 mg PO DAILY 10 days #10 tabs 02/09/24 Allergies Allergy/AdvReac Type Severity Reaction Status Date / Time Penicillins Allergy Severe Verified 02/08/24 12:18 Opioid HPI Opioid Management Most Recent Opioid Data: Last Pain Scale 5 02/09/24 11:00 Last Pain Intensity 0 02/09/24 09:27 Last ORT Total Score 3 02/08/24 16:51 Last ORT Risk Category Low Risk 02/08/24 16:51 Review of Systems ROS Status of ROS 10 or more systems reviewed and unremarkable except as noted in history and below [facility] Medical History (Updated 02/13/24 @ 00:00 by ) Hypoglycemia ?E16.2 - Hypoglycemia, unspecified (ICD-10) EVA (acute kidney injury) ?N17.9 - Acute kidney failure, unspecified (ICD-10) Hypotension ?I95.9 - Hypotension, unspecified (ICD-10) Hypertension ?I10 - Essential (primary) hypertension (ICD-10) Hyperlipidemia ?E78.5 - Hyperlipidemia, unspecified (ICD-10) Colon cancer ?C18.9 - Malignant neoplasm of colon, unspecified (ICD-10) Heart disease ?I51.9 - Heart disease, unspecified (ICD-10) Diabetes ?E11.9 - Type 2 diabetes mellitus without complications (ICD-10) Surgical History (Updated 02/08/24 @ 16:43 by Letty Saleem) History of cholecystectomy ?Z90.49 - Acquired absence of other specified parts of digestive tract (ICD-10) History of hysterectomy ?Z90.710 - Acquired absence of both cervix and uterus (ICD-10) History of partial surgical removal of colon ?Z90.49 - Acquired absence of other specified parts of digestive tract (ICD-10) History of appendectomy ?Z90.49 - Acquired absence of other specified parts of digestive tract (ICD-10) 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.1 - Presence of aortocoronary bypass graft (ICD-10) Family History (Updated 02/08/24 @ 16:45 by Letty Saleem) Father Family history of CHF (congestive heart failure) Family history of myocardial infarction Mother Family history of cancer Family history of diabetes mellitus Sister Family history of diabetes mellitus Family history of cancer Brother Family history of myocardial infarction Family history of stroke Social History (Updated 02/08/24 @ 16:46 by Letyt Saleem) Within the past year, how often did you have a drink containing alcohol: never Score interpretation: A score less than 3 is consistent with normal alcohol consumption. Smoking status: Never smoker Non-prescribed substance use: denies use Previous occupational history: retired Highest level of school completed/degree received: 11th grade Are you now , , , , never or living with a partner: In a typical week, how many times do you talk on the telephone with family, friends, or neighbors: twice per week How often do you get together with friends or relatives: twice per week How often do you attend advent or evangelical services: never Do you belong to any clubs or organizations such as advent groups unions, fraternal or athletic groups, or school groups: no Total score: 2 Score interpretation: A score of greater than or equal to 2 indicates the lowest level of social isolation. Little interest or pleasure in doing things: not at all Feeling down, depressed, or hopeless: several days Feel stressed/tense/nervous/anxious/difficulty sleeping: not at all Do you think of yourself as: straight/heterosexual Gender Identity: female Exam Narrative Exam Narrative: Time Seen: [] Vital Signs: [Per nurse's notes.] General: [Alert] Skin: [Warm, dry, no rash.] Head: [Normocephalic, atraumatic.] Neck: [Supple, trachea midline.] Eye: [Pupils are equal, round and reactive to light, extraocular movements are intact, normal conjunctiva.Funduscopic exam reveals dark posterior chamber no obvious evidence of hemorrhage but difficult to examine Ears, nose, mouth and throat: oral mucosa moist. Cardiovascular: [Regular rate and rhythm, no murmur.] Respiratory: [Lungs are clear to auscultation, respirations are non-labored, breath sounds are equal.] Chest wall: [No tenderness, no deformity.] Gastrointestinal: [Soft, nontender, non distended, normal bowel sounds.] MSK: 5 out of 5 muscle strength x 4 extremities no calf pain or edema Lymphatics: [No lymphadenopathy.] Psychiatric: [Cooperative, appropriate mood & affect.] Neurological: [Alert and oriented to person, place, time, and situation, no focal neurological deficit observed.] Constitutional Vital Signs, click to edit/add: Last Vital Signs Temp 97.8 F 05/04/24 17:40 Pulse 70 05/04/24 17:40 Resp 18 05/04/24 17:40 BP 178/82 H 05/04/24 17:40 Pulse Ox 97 05/04/24 17:40 Course Vital Signs Vital signs: Vital Signs Temperature 97.8 F 05/04/24 17:40 Pulse Rate 70 05/04/24 17:40 Respiratory Rate 18 05/04/24 17:40 Blood Pressure 178/82 H 06/25/24 17:40 Pulse Oximetry 97 05/04/24 17:40 Temperature 97.8 F 05/04/24 17:40 Pulse Rate 70 05/04/24 17:40 Respiratory Rate 18 05/04/24 17:40 Blood Pressure 178/82 H 05/04/24 17:40 Pulse Oximetry 97 05/04/24 17:40 Medical Decision Making MDM Narrative Medical decision making narrative: I spoke to homero Villatoro Who agrees with workup here and if everything is negative he will see her in the office in the morning. He said he will be in the [place] office and have her call at 8 AM and he will get her taken care of. Patient is comfortable with care plan and will call his office in the morning pending continued negative workup. I did attempt to measure intraocular pressures but the Judson-Pen is not working. We tried battery changes and multiple calibrations but could not get it to work. Patient does not have acute pain Differential Diagnosis Differential Diagnosis: Retinal detachment, vitreous hemorrhage, diabetic retinopathy, glaucoma ECG Data Interpretation: EKG INTERPRETATION Time: []1823 Rate: []62 Rhythm: _ []Normal sinus rhythm ST segments: _ []No acute ST elevation or depression T waves: _ [] Ectopy: _ [] P wave/TX interval: _ [] QRS interval: _ [] QT interval: _ [] Comparison: _ [] Comparison EKG date: [] Performed by: [self] Discharge Plan Discharge Chief Complaint: Neuro Symptoms/Deficit Prescriptions / Home Meds: No Action Eliquis 5 mg tablet 5 mg PO BID clopidogrel 75 mg tablet 75 mg PO DAILY lisinopril 20 mg tablet 20 mg PO DAILY atorvastatin 80 mg tablet 80 mg PO DAILY citalopram 20 mg tablet 20 mg PO DAILY Novolin R Regular U100 Insulin 100 unit/mL solution Patient Comments: SLIDING SCALE gabapentin 300 mg capsule 300 mg PO BID potassium chloride [Klor-Con M20] 20 mEq tablet,ER particles/crystals 20 meq PO BID levofloxacin 500 mg tablet 500 mg PO DAILY 10 Days Qty: 10 0RF Print Language: Danish Referrals: CHAMP CHRISTENSEN [Primary Care Provider] - 1 week Procedures ED Procedure Instructions Procedures Procedures: NIH stroke scale: Date/Time: [] Level of consciousness: _ Normal0 Current month and age: _Normal0 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
[2024-05-04] MEDS: TETRACAINE HCL 0.5% OP SOL 80 DROP/4 ML BOTTLE OP (18:37)
[2024-05-04 18:47] LABS: Basophils Absolute Auto 0.1 10^3/uL (0.0-0.1); Basophils Percent Auto 0.7 % (0.2-2.0); Eosinophils Absolute Auto 0.5 10^3/uL (0.0-0.7); Eosinophils Percent Auto 5.8 % (0.9-7.0); Hematocrit 36.4 % (36.0-48.0); Hemoglobin 11.9 g/dL (12.0-16.0); Immature Granulocytes Abs Auto 0.02 10^3/uL (0.00-0.03); Immature Granulocytes Pct Auto 0.2 % (0.0-0.5); Lymphocytes Absolute Auto 3.1 10^3/uL (1.2-3.8); Lymphocytes Percent Auto 37.1 % (20.5-60.0); Mean Corpuscular HGB Conc 32.7 g/dL (29.9-35.2); Mean Corpuscular Hemoglobin 27.7 pg (26.7-34.0); Mean Corpuscular Volume 84.8 fL (81.0-99.0); Mean Platelet Volume 11.1 fL (9.5-13.5); Monocytes Absolute Auto 1.1 10^3/uL (0.3-0.8); Monocytes Percent Auto 12.9 % (1.7-12.0); Neutrophils Absolute Auto 3.6 10^3/uL (1.4-6.5); Neutrophils Percent Auto 43.3 % (43.0-75.0); Platelet Count 200 10^3/uL (150-450); Red Blood Count 4.29 10^6/uL (4.20-5.40); White Blood Count 8.4 10^3/uL (4.0-11.0)
[2024-05-04 18:59] LABS: Prothrombin Time 10.6 sec (9.0-11.6)
[2024-05-04 19:01] LABS: Alanine Aminotransferase 17 U/L (14-59); Albumin Globulin Ratio 0.9; Albumin Level 3.8 g/dL (3.4-5.0); Alkaline Phosphatase 134 U/L (46-116); Anion Gap 14.3; Aspartate Amino Transferase <5 U/L (15-37); BUN Creatinine Ratio 41.7; Bilirubin Total 0.4 mg/dL (0.2-1.0); Calcium 9.4 mg/dL (8.5-10.1); Carbon Dioxide 24.2 mmol/L (21.0-32.0); Chloride 102 mmol/L (98-107); Estimated GFR (African America 48 (>=60); Estimated GFR (Non-African Ame 40 (>=60); Globulin 4.2 g/dL; Glucose 185 mg/dL (74-106); Potassium 4.5 mmol/L (3.5-5.1); Sodium 136 mmol/L (136-145)
--- NOTE | 2024-05-04 19:35 | ED_ITS ---
HPI - Neuro Symptoms/Deficit General Chief Complaint: Neuro Symptoms/Deficit Stated Complaint: Visual Disturbance Time Seen by Provider: 05/04/24 17:41 Source: patient and family Mode of arrival: walk-in History of Present Illness HPI Narrative: This 68-year-old female was signed out to me at shift change pending evaluation of her labs and CT scan. She presents for evaluation of at least 2 days of visual change in the right eye where she feels like there are hairs that she can see in her eye and the vision is blurry. She denies any headache. She denies any nausea or vomiting. Her ophthalmic workup in the emergency department was normal and Dr. Jessica spoke with Dr. Garcia, ophthalmology from [facility], he will see the patient in the morning. I reviewed her labs. Labs are essentially normal. CT scan of the brain shows no acute findings. The patient is anxious to be discharged home because she is hungry. There has been no acute worsening of her vision while in the emergency department and she will be discharged home at this time to follow-up closely with outpatient ophthalmology. Patient and her are in agreement with this plan. Related Data Home Medications ?Medication ?Instructions ?Recorded ?Confirmed apixaban 5 mg tablet (Eliquis) 5 mg PO BID 02/08/24 02/08/24 atorvastatin 80 mg tablet 80 mg PO DAILY 02/08/24 02/08/24 citalopram 20 mg tablet 20 mg PO DAILY 02/08/24 02/08/24 clopidogrel 75 mg tablet 75 mg PO DAILY 02/08/24 02/08/24 gabapentin 300 mg capsule 300 mg PO BID 02/08/24 02/08/24 insulin regular human 100 unit/mL 02/08/24 injection solution (Novolin R Regular U-100 Insulin) lisinopril 20 mg tablet 20 mg PO DAILY 02/08/24 02/08/24 potassium chloride 20 mEq 20 meq PO BID 02/08/24 02/08/24 tablet,extended release(part/cryst) (Klor-Con M) Previous Rx's ?Medication ?Instructions ?Recorded levofloxacin 500 mg tablet 500 mg PO DAILY 10 days #10 tabs 02/09/24 Allergies Allergy/AdvReac Type Severity Reaction Status Date / Time Penicillins Allergy Severe Verified 02/08/24 12:18 [facility] Medical History (Updated 05/04/24 @ 19:40 by Estrella Lozano MD) Hypoglycemia ?E16.2 - Hypoglycemia, unspecified (ICD-10) EVA (acute kidney injury) ?N17.9 - Acute kidney failure, unspecified (ICD-10) Hypotension ?I95.9 - Hypotension, unspecified (ICD-10) Hypertension ?I10 - Essential (primary) hypertension (ICD-10) Hyperlipidemia ?E78.5 - Hyperlipidemia, unspecified (ICD-10) Colon cancer ?C18.9 - Malignant neoplasm of colon, unspecified (ICD-10) Heart disease ?I51.9 - Heart disease, unspecified (ICD-10) Diabetes ?E11.9 - Type 2 diabetes mellitus without complications (ICD-10) Surgical History (Updated 02/08/24 @ 16:43 by Letty Saleem) History of cholecystectomy ?Z90.49 - Acquired absence of other specified parts of digestive tract (ICD- 10) History of hysterectomy ?Z90.710 - Acquired absence of both cervix and uterus (ICD-10) History of partial surgical removal of colon ?Z90.49 - Acquired absence of other specified parts of digestive tract (ICD- 10) History of appendectomy ?Z90.49 - Acquired absence of other specified parts of digestive tract (ICD- 10) 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.1 - Presence of aortocoronary bypass graft (ICD-10) Family History (Updated 02/08/24 @ 16:45 by Letty Saleem) Father Family history of CHF (congestive heart failure) Family history of myocardial infarction Mother Family history of cancer Family history of diabetes mellitus Sister Family history of diabetes mellitus Family history of cancer Brother Family history of myocardial infarction Family history of stroke Social History (Updated 02/08/24 @ 16:46 by Letty Saleem) Within the past year, how often did you have a drink containing alcohol: never Score interpretation: A score less than 3 is consistent with normal alcohol consumption. Smoking status: Never smoker Non-prescribed substance use: denies use Previous occupational history: retired Highest level of school completed/degree received: 11th grade Are you now , , , , never or living with a partner: In a typical week, how many times do you talk on the telephone with family, friends, or neighbors: twice per week How often do you get together with friends or relatives: twice per week How often do you attend druze or jehovah's witness services: never Do you belong to any clubs or organizations such as druze groups unions, fraternal or athletic groups, or school groups: no Total score: 2 Score interpretation: A score of greater than or equal to 2 indicates the lowest level of social isolation. Little interest or pleasure in doing things: not at all Feeling down, depressed, or hopeless: several days Feel stressed/tense/nervous/anxious/difficulty sleeping: not at all Do you think of yourself as: straight/heterosexual Gender Identity: female Exam Constitutional Vital Signs, click to edit/add: Last Vital Signs Temp 97.8 F 05/04/24 17:40 Pulse 70 05/04/24 17:40 Resp 18 05/04/24 17:40 BP 178/82 H 05/04/24 17:40 Pulse Ox 97 05/04/24 17:40 Course Vital Signs Vital signs: Vital Signs Temperature 97.8 F 05/04/24 17:40 Pulse Rate 70 05/04/24 17:40 Respiratory Rate 18 05/04/24 17:40 Blood Pressure 178/82 H 05/04/24 17:40 Pulse Oximetry 97 05/04/24 17:40 Temperature 97.8 F 05/04/24 17:40 Pulse Rate 70 05/04/24 17:40 Respiratory Rate 18 05/04/24 17:40 Blood Pressure 178/82 H 05/04/24 17:40 Pulse Oximetry 97 05/04/24 17:40 MDM - Neuro Symptoms/Deficit MDM Narrative Medical decision making narrative: [place] [address] CT Scan Report Signed Patient: MARIMAR MCDANIEL MR#: [id number] : 1955 Acct:[id number] Age/Sex: 68 / F ADM Date: 05/04/24 Loc: ER Attending Dr: Ordering Physician: Annmarie Jessica D.O. Date of Service: 05/04/24 Procedure(s): CT head/brain wo con Accession Number(s): [id number] cc: [facility] ~ The [address] [address] Patient Name: MARIMAR MCDANIEL MRN: [facility]:[id number] date: 1955 Sex: F Assigned Patient Location: ED.MAIN Current Patient Location: ER Accession/Order Number: [id number] Exam Date: 05/04/2024 19:04 Report Date: 05/04/2024 19:29 At the request of: ANNMARIE JESSICA Procedure: CT head/brain wo con EXAM: CT head/brain wo con HISTORY: vision changes COMPARISON: CT brain 01/31/2023 TECHNIQUE: Axial CT scans through the head were obtained without IV contrast administration. Dose reduction techniques were achieved by using: automated exposure control and/or adjustment of mA and /or kV according to patient size and/or use of iterative reconstruction technique. FINDINGS: There is no evidence of acute intracranial hemorrhage or abnormal extra-axial fluid collection. No mass effect or midline shift is seen. There is no evidence of large acute territorial infarction. There is no hydrocephalus. There is a remote lacunar infarct in the left centeno radiata. Mild enlarged ventricles and sulci, consistent with age appropriate cerebral atrophy. Mild decreased attenuation of the supratentorial white matter, likely represents chronic microvascular ischemia. To the limit of CT, the posterior fossa appears unremarkable. There are atherosclerotic calcifications of anterior and posterior circulations. No definite acute fracture is identified. Soft tissues are unremarkable. The visualized orbits show no abnormality. The visualized paranasal sinuses show no air-fluid level. Mastoid air cells are clear. CT/CT head/brain wo con IMPRESSION: No CT evidence of acute intracranial abnormality. If there is sufficient clinical concern for acute brain parenchymal pathology, consider MRI for further evaluation. Mild chronic microvascular ischemia and involutional changes. Remote lacunar infarct in left centeno radiata. Vascular calcifications. Lab Data Labs: Lab Results 05/04/24 Range/Units 18:35 WBC 8.4 (4.0-11.0) 10^3/uL RBC 4.29 (4.20-5.40) 10^6/uL Hgb 11.9 L (12.0-16.0) g/dL Hct 36.4 (36.0-48.0) % MCV 84.8 (81.0-99.0) fL MCH 27.7 (26.7-34.0) pg MCHC 32.7 (29.9-35.2) g/dL RDW 14.0 (11.0-15.0) % Plt Count 200 (150-450) 10^3/uL MPV 11.1 (9.5-13.5) fL Neut % (Auto) 43.3 (43.0-75.0) % Lymph % (Auto) 37.1 (20.5-60.0) % Briscoe % (Auto) 12.9 H (1.7-12.0) % Eos % (Auto) 5.8 (0.9-7.0) % Baso % (Auto) 0.7 (0.2-2.0) % Neut # (Auto) 3.6 (1.4-6.5) 10^3/uL Lymph # (Auto) 3.1 (1.2-3.8) 10^3/uL Briscoe # (Auto) 1.1 H (0.3-0.8) 10^3/uL Eos # (Auto) 0.5 (0.0-0.7) 10^3/uL Baso # (Auto) 0.1 (0.0-0.1) 10^3/uL Abs Immat Gran (auto) 0.02 (0.00-0.03) 10^3/uL Imm/Tot Granulo (auto) 0.2 (0.0-0.5) % PT 10.6 (9.0-11.6) sec INR 1.00 Sodium 136 (136-145) mmol/L Potassium 4.5 (3.5-5.1) mmol/L Chloride 102 (98-107) mmol/L Carbon Dioxide 24.2 (21.0-32.0) mmol/L Anion Gap 14.3 BUN 55.0 H (7.0-18.0) mg/dL Creatinine 1.32 H (0.55-1.02) mg/dL Est GFR ( Amer) 48 L (>=60) Est GFR (Non-Af Amer) 40 L (>=60) BUN/Creatinine Ratio 41.7 Glucose 185 H (74-106) mg/dL Calcium 9.4 (8.5-10.1) mg/dL Total Bilirubin 0.4 (0.2-1.0) mg/dL AST <5 L (15-37) U/L ALT 17 (14-59) U/L Alkaline Phosphatase 134 H (46-116) U/L Total Protein 8.0 (6.4-8.2) g/dL Albumin 3.8 (3.4-5.0) g/dL Globulin 4.2 g/dL Albumin/Globulin Ratio 0.9 Discharge Plan Discharge Stand Alone Forms: Portal Instructions Chief Complaint: Neuro Symptoms/Deficit Clinical Impression: Alteration in vision Patient Disposition: Home, Self-Care Time of Disposition Decision: 19:40 Condition: Fair Prescriptions / Home Meds: No Action Eliquis 5 mg tablet 5 mg PO BID clopidogrel 75 mg tablet 75 mg PO DAILY lisinopril 20 mg tablet 20 mg PO DAILY atorvastatin 80 mg tablet 80 mg PO DAILY citalopram 20 mg tablet 20 mg PO DAILY Novolin R Regular U100 Insulin 100 unit/mL solution Patient Comments: SLIDING SCALE gabapentin 300 mg capsule 300 mg PO BID potassium chloride [Klor-Con M20] 20 mEq tablet,ER particles/crystals 20 meq PO BID levofloxacin 500 mg tablet 500 mg PO DAILY 10 Days Qty: 10 0RF Print Language: Dominican Instructions: Blurred Vision (ED) Additional Instructions: Call Dr Garcia at [phone] at 8am when the office opens for an appointment tomorrow Referrals: [facility] [Primary Care Provider] - 1 week Elton Garcia MD [Physician] - As soon as possible (visual change to right eye)
== END 2024-05-04 19:55 | disposition home or self-care (01) ==
PROVIDERS: Emergency Medicine; Emergency Provider Emergency Medicine; PCP Internal Medicine
DX: H53.8 Other visual disturbances (principal); E11.9 Type 2 diabetes mellitus without complications; Z79.01 Long term (current) use of anticoagulants; Z79.4 Long term (current) use of insulin
CPT/HCPCS: 36415; 70450; 80053; 85025; 85610; 93005; 99285

== ENCOUNTER 2024-12-18 12:20 | Outpatient (OUT) | payer MEDICARE, BC, SELFPAY ==
--- OUTSIDE RECORDS SUMMARY | 2024-12-18 12:25 | XMS_ITS | CCD ---
Author Organization [facility] CliniSyal Care Team Providers Care Granulator Tender Name Role Phone Geo Mathew Unavailable [phone] CHASE AMAYA Attending Unavailable UNKNOWN, PHYSICIAN Referring Unavailable NIK BELL Primary Care Unavailable ANDREW LOONEY Admitting Unavailable MONSE Bell Primary Care Provider MD Geo Mathew Attending Provider [phone] DR NIK BELL Primary Care Unavailable SHEPARD ., DR LARISSA Manriquez Admitting Unavailable SHEPARD ., DR LARISSA Manriquez Attending Unavailable SHEPARD ., DR LARISSA Manriquez Consulting Unavailable WEST, DR GORDON Cronin Consulting Unavailable ANNELIESE, DR GERMAIN Villaseñor Consulting Unavailable RODRIGO CARR Consulting Unavailable FASHAIKH Meka CATALAN Consulting Unavailable MISC, DR ROSADO Admitting Unavailable [...] Unavailable PAY ., DR DÍAZ Consulting Unavailable CHANTAL KILLIAN Consulting Unavailable RAY, DR OAKES Primary Care Unavailable RODRIGO CARR Consulting Unavailable RODRIGO CARR Admitting Unavailable RODRIGO CARR Attending Unavailable RAY, DR OAKES Primary Care Unavailable PAY ., DR DAÍZ Admitting Unavailable PAY ., DR DÍAZ Attending Unavailable ANNELIESE, DR GERMAIN Villaseñor Consulting Unavailable PAY ., DR DÍAZ Consulting Unavailable BRYAN ., BRETT Consulting Unavailable Sabrina Borden Unavailable MONSE Bell Primary Care Provider MD Geo Mathew Attending Provider Nik Bell MD Primary Care Provider MONSE Bell Primary Care Provider [phone] KIKA Gilmore Attending Provider MD Rodrigo Yousif Attending Provider Alexis Gilmore Admitting Unavailable Alexis Gilmore Attending Unavailable Nik Bell Primary Care Unavailable Rodrigo Yousif Admitting Unavailable Rodrigo Yousif Attending Unavailable Nik Bell Primary Care Unavailable Rodrigo Yousif Admitting Unavailable Rodrigo Yousif Attending Unavailable Nik Bell Primary Care Unavailable Darrell BUTT, PhD, Trace Unavailable Unavalucero ESCAMILLA, MARGARETH H Attending Unavailable NAVI CONKLIN Primary Care Unavailable MARGARETH ESCAMILLA H Attending Unavailable ROHINI, MAHADR Referring Unavailable NAVI CONKLIN Primary Care Unavailable JEREMY TAREK Admitting Unavailable JEREMY TAREK Attending Unavailable NAVI CONKLIN Primary Care Unavailable NAVI CONKLIN Primary Care Unavailable TABIRTA, TERRI I Referring Unavailable Nik Bell MD Unavailable Friday NUT SIFTER, Magalie Unavailable CARMELLA ALLEN Attending Unavailable JUSTINE, SARMED Referring Unavailable JUSTINE, SARMED Referring Unavailable NAZZAL, MUNIER Referring Unavailable NAZZAL, MUNIER Referring Unavailable ANABELLE RICH Attending Unavailable MOPANCHITO CHRISTIANSON Attending Unavailable MOUKAPANCHITO MANE Attending Unavailable AURE, ANDREW Admitting Unavailable JUSTINE SARMED Attending Unavailable Unavailable Primary Care Provider UnavailNavi Gonzales DO Primary Care Provider [phone] Trace Ramírez Attending Unavailable Trace Ramírez Referring Unavailable Trace Ramírez Attending Unavailable Darrell, Trace R Referring Unavailable Trace Ramírez Attending Unavailable Trace Ramírez Referring Unavailable ALEXIS GILMORE Attending Unavailable ALEXIS GILMORE Attending Unavailable NIK BELL Attending Unavailable ALEXIS GILMORE Attending Unavailable ALEXIS GILMORE Attending Unavailable JOHNNA CEDEÑO Attending Unavailable ALEXIS GILMORE Attending Unavailable JOHNNA CEDEÑO Attending Unavailable JOHNNA CEDEÑO Attending Unavailable TEENA DELCID Attending Unavailable ALEXIS GILMORE Attending Unavailable ALEXIS GILMORE Attending Unavailable ALEXIS GILMORE Attending Unavailable TEENA DELCID Attending Unavailable TEENA DELCID Attending Unavailable TEENA DELCID Attending Unavailable TEENA DELCID Attending Unavailable TEENA DELCID Attending Unavailable JOHNNA CEDEÑO Attending Unavailable ALEXIS GILMORE Attending Unavailable MANJULA FULTON Attending Unavailable TEENA DELCID Attending Unavailable Allergies Allergy Classification Reported Allergen(s) Allergy Type Date of Onset Reaction(s) Facility (1 source) Penicillin V Drug Allergy [facility] Other (7 sources) Penicillins; Translations: [PENICILLINS] Drug allergy (disorder) 9 Hives [facility] Repository (4 sources) Penicillin; Translations: [PENICILLIN] Drug Allergy 9 hives, Unknown [facility] (20 sources) Penicillins Drug Allergy 4 Hives, Unknown [facility] (1 source) Penicillins Drug allergy (disorder) 4 [facility] Repository (4 sources) Penicillins Drug Allergy 4 Hives, Other, Unknown [facility] Medications Current Medications Medication Drug Class(es) Dates Sig (Normalized) Sig (Original) 8 hr acetaminophen 650 mg extended release oral tablet (3 sources) take 2 tablets by mouth every eight hours as needed acetaminophen (Tylenol 8 HOUR) 650 mg ER tablet Take 2 tablets (1,300 mg) by mouth every 8 hours if needed for mild pain (1 - 3). Do not crush, chew, or split. Active albuterol 0.83 mg/ml inhalation solution (20 sources) beta2-Adrenergic Agonist Start: 06-21-2024 albuterol (2.5 M G/3ML) 0.083% nebulizer solution 3 ml Inhalation 4 times a day and as needed for 6 Active albuterol 2.5 mg /3 mL (0.083 %) nebulizer solution Take 3 mL (2.5 mg) by nebulization 4 times a day as needed for wheezing or shortness of breath. Active albuterol 0.833 mg/ml / ipratropium bromide 0.167 mg/ml inhalation solution (12 sources) Anticholinergic, beta2-Adrenergic Agonist Start: 09-22-2024 ipratropium-albuterol (Duo-Neb) 0.5-2.5 mg/3 mL nebulizer solution Indications: Acute asthmatic bronchitis (CMS/HCC) Take 3 mL by nebulization in the morning and 3 mL in the evening and 3 mL before bedtime. 180 mL 11 09/22/2024 Active amLODIPine 10 mg oral tablet (20 sources) Dihydropyridine Calcium Channel Stuart Start: 05-11-2024 amLODIPine (Norvasc) 10 MG tablet 05/11/2024 Active Start: 01-13-2023 take 5 mg by mouth once daily Amlodipine Active 5 MG PO Daily January 13, 2023 1:00am apixaban 5 mg oral tablet (20 sources) Factor Xa Inhibitor Start: 08-23-2024 take 1 tablet by mouth in the morning apixaban (Eliquis) 5 MG tablet Indications: Paroxysmal atrial fibrillation (CMS/HCC) Take 1 tablet (5 mg) by mouth in the morning and 1 tablet (5 mg) before bedtime. 200 tablet 1 08/23/2024 Active Start: 01-13-2023 take 1 tablet by west th in the morning apixaban (Eliquis) 5 MG tablet Indications: Paroxysmal atrial fibrillation (CMS/HCC) Take 1 tablet (5 mg) by mouth in the morning and 1 tablet (5 mg) before bedtime. 200 tablet 1 10/01/2023 Active Start: 01-13-2023 take 5 mg by mouth twice daily 5 mg, oral, 2 times daily, First dose on Fri06/22/24 at 0900 atorvastatin 80 mg oral tablet (20 sources) HMG-CoA Reductase Inhibitor Start: 11-15-2024 take 1 tablet by mouth once daily atorvastatin (Lipitor) 80 MG tablet Indications: Mixed hyperlipidemia (CMS/HCC) TAKE 1 TABLET BY MOUTH EVERY DAY 100 tablet 3 11/15/2024 Active Start: 05-05-2019 take 1 tablet by west th once daily atorvastatin (Lipitor) 80 MG tablet Indications: Mixed hyperlipidemia (CMS/HCC) TAKE 1 TABLET BY MOUTH EVERY DAY 100 tablet 3 09/30/2023 Active benzonatate 200 mg oral capsule (7 sources) Non-narcotic Antitussive Start: 09-22-2024 End: 10-02-2024 take 1 capsule by mouth three times daily as needed for cough benzonatate (Tessalon) 200 MG capsule Indications: Acute cough Take 1 capsule (200 mg) by mouth 3 (three) times a day as needed for cough for up to 10 days Do not crush or chew. 30 capsule 09/22/2024 10/02/2024 Active carvedilol 25 mg oral tablet (20 sources) alpha-Adrenergic Stuart, beta-Adrenergic Stuart Start: 01-28-2023 take 1 tablet by mouth every twelve hours carvedilol (Coreg) 25 MG tablet Take 25 mg by mouth every 12 (twelve) hours. 0 01/28/2023 Active Start: 01-13-2023 take 0.5 tablet by [facility] every twelve hours carvedilol (Coreg) 25 mg tablet Take 0.5 tablets (12.5 mg) by mouth every 12 hours. 01/13/2023 Active Start: 01-13-2023 take 1 tablet by west every twelve hours carvedilol (Coreg) 25 mg tablet Take 1 tablet (25 mg) by mouth every 12 hours. 01/13/2023 Active Start: 01-13-2023 take 12.5 mg by mout h twice daily Carvedilol Active 12.5 MG PO Twice daily January 13, 2023 1:00am Start: 01-13-2023 take 25 mg by mouth twice yarely y Carvedilol Active 25 MG PO Twice daily January 13, 2023 1:00am carvedilol (Core g) 25 MG tablet Take 12.5 mg by mouth in the morning and 12.5 mg before bedtime. Active take 1 capsule by mo vah once daily Coreg CR 20 mg capsule, extended release take 1 capsule by oral route every day 20 MG - Active citalopram 20 mg oral tablet (20 sources) Serotonin Reuptake Inhibitor Start: 11-30-2024 take 1 tablet by mouth once daily citalopram (CeleXA) 20 MG tablet Indications: Generalized anxiety disorder (CMS/HCC) Take 1 tablet (20 mg) by mouth Daily 100 tablet 2 11/30/2024 Active Start: 01-13-2023 take 1 tablet by west th twice daily citalopram (CeleXA) 20 mg tablet Take 1 tablet (20 mg) by mouth 2 times a day. 01/13/2023 Active Start: 01-13-2023 take 1 tablet by west th once daily citalopram (CeleXA) 20 MG tablet Indications: Generalized anxiety disorder (CMS/HCC) TAKE 1 TABLET BY MOUTH ONCE DAILY 100 tablet 2 09/16/2023 Active Start: 05-05-2019 take 1 tablet by west th once daily citalopram 40 mg tablet take 1 tablet by oral route every day 40 MG - Active take 0.5 tablet by m outh every twenty-four hours Citalopram Hydrobromide 40 MG 0.5 tablet Orally Once a day Active clopidogrel 75 mg oral tablet (20 sources) P2Y12 Platelet Inhibitor Start: 01-08-2024 clopidogrel (Plavix) 75 MG tablet 01/08/2024 Active take 1 tablet by west th every twenty-four hours Clopidogrel Bisulfate 75 MG 1 tablet Orally Once a day Not-Taking codeine phosphate 2 mg/ml / guaiFENesin 20 mg/ml oral solution (7 sources) Opioid Agonist Start: 09-22-2024 End: 10-02-2024 take 5 mL by mouth four times daily as needed for cough guaiFENesin-codeine (guaiFENesin AC) 100-10 MG/5ML syrup Indications: Acute cough Take 5 mL by mouth 4 (four) times a day as needed for cough for up to 10 days 120 mL 09/22/2024 10/02/2024 Active Continuous Blood Gluc Sensor (Dexcom G7 Sensor) misc (20 sources) Start: 12-15-2023 Continuous Blood Gluc Sensor (Dexcom G7 Sensor) misc Indications: Type 2 diabetes mellitus with hyperglycemia, with long-term current use of insulin (CMS/HCC) 1 Disk Every 10 (ten) days 3 each 12/15/2023 Active Continuous Glucose Emissions Inspector (Dexcom G7 Emissions Inspector) device (20 sources) Start: 03-05-2024 Continuous Glucose Emissions Inspector (Dexcom G7 Emissions Inspector) device Indications: Type 2 diabetes mellitus with hyperglycemia, with long-term current use of insulin (CMS/HCC) , 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 (CMS/HCC) , Polyneuropathy due to type 2 diabetes mellitus (CMS/HCC) , Poorly controlled diabetes mellitus (CMS/HCC) , 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 associated with type 2 diabetes mellitus (CMS/HCC) 1 Device yearly 1 each 03/05/2024 Active ezetimibe 10 mg oral tablet (2 sources) Dietary Cholesterol Absorption Inhibitor take 1 tablet by mouth in the morning ezetimibe (Zetia) 10 MG tablet Take 10 mg by mouth in the morning. 0 Active furosemide 40 mg oral tablet (20 sources) Loop Diuretic Start: 08-27-2024 take 1 tablet by mouth once daily furosemide (Lasix) 40 MG tablet Indications: Edema, unspecified type TAKE 1 TABLET BY MOUTH EVERY DAY 90 tablet 08/27/2024 Active Start: 06-22-2024 take 40 mg by mouth once daily before breakfast 40 mg, oral, Daily before breakfast, First dose on Fri06/22/24 at 0700 Start: 03-19-2024 End: 03-19-2025 take 3 tablets by mouth in the morning furosemide (Lasix) 20 MG tablet Take 60 mg by mouth in the morning. 03/19/2024 03/19/2025 Active Start: 03-19-2024 End: 03-19-2025 take 1 tablet by mouth once daily furosemide (Lasix) 2 0 mg tablet Take 1 tablet (20 mg) by mouth once daily. (Take with 40mg tablet for total dose of 60mg) 03/19/2024 03/19/2025 Active Start: 01-13-2023 take 1 tablet by mouth once da randell furosemide (Lasix) 40 MG tablet Take 40 mg by mouth Daily 04/16/2024 Active Start: 01-13-2023 take 60 mg by mouth once daily Furosemide Active 60 MG PO Daily January 13, 2023 1:00am gabapentin 300 mg oral capsule (20 sources) Anti-epileptic Agent Start: 06-21-2024 take 1 capsule by mouth twice daily 600 mg, oral, 2 times daily, First dose on Fri06/21/24 at 2100, Capsules may be opened and sprinkled on food (eg, applesauce, orange juice, pudding Start: 01-13-2023 take 2 capsules by m outh twice daily gabapentin (Neurontin) 300 mg capsule Take 2 capsules (600 mg) by mouth 2 times a day. 01/13/2023 Active Start: 01-13-2023 End: 09-22-2025 take 1 capsule by mouth in the morning gabapentin (Neurontin) 300 MG capsule Indications: Polyneuropathy due to type 2 diabetes mellitus (CMS/HCC) Take 1 capsule (300 mg) by mouth in the morning and 1 capsule (300 mg) before bedtime. 180 capsule 3 09/22/2024 09/22/2025 Active Start: 05-05-2019 take 300 mg by mouth twice daily Gabapentin Active 300 MG PO Twice daily January 13, 2023 1:00am glucagon (rdna) 1 mg injection (2 sources) Antihypoglycemic Agent Start: 06-21-2024 50 ml glucose 500 mg/ml prefilled syringe (2 sources) Start: 06-21-2024 hydrALAZINE hydrochloride 50 mg oral tablet (20 sources) Arteriolar Vasodilator Start: 05-10-2024 End: 05-10-2025 hydrALAZINE (Apresoline) 50 MG tablet 08/22/2024 Active Start: 01-13-2023 take 50 mg by mouth twice yarely y Hydralazine Active 50 MG PO Twice daily January 13, 2023 1:00am Start: 01-13-2023 take 100 mg by mouth twice daily Hydralazine Active 100 MG PO Twice daily January 13, 2023 1:00am 3 ml insulin glargine 100 unt/ml pen injector (20 sources) Insulin Analog Start: 09-22-2024 End: 10-11-2025 insulin glargine (Basaglar KwikPen) 100 UNIT/ML pen Indications: Type 2 diabetes mellitus with hyperglycemia, with long-term current use of insulin (CMS/HCC) Inject 75 Units under the skin at bedtime 24 mL 11 09/22/2024 10/11/2025 Active Start: 09-22-2024 End: 09-22-2024 inject 70 [IU] by subcutaneous injection at bedtime insulin glargine (Lantus) 100 UNIT/ML injection Indications: Type 2 diabetes mellitus with hyperglycemia, with long-term current use of insulin (CMS/HCC) Inject 70 Units under the skin at bedtime 09/22/2024 09/22/2024 Discontinued (Reorder) Start: 09-22-2024 End: 09-22-2024 inject 75 [IU] by subcutaneous injection at bedtime insulin glargine (Lantus) 100 UNIT/ML injection Indications: Type 2 diabetes mellitus with hyperglycemia, with long-term current use of insulin (CMS/HCC) Inject 75 Units under the skin at bedtime 22.5 mL 11 09/22/2024 09/22/2024 Discontinued (Reorder) Start: 03-18-2024 End: 03-18-2025 inject 40 [IU] by subcutaneous injection at bedtime insulin glargine (Lantus) 100 UNIT/ML injection Indications: Type 2 diabetes mellitus with hyperglycemia, with long-term current use of insulin (CMS/HCC) Inject 40 Units under the skin at bedtime 10 mL 12 03/18/2024 09/22/2024 Discontinued Start: 11-17-2023 Basaglar KwikP en U-100 Insulin 100 unit/mL (3 mL) pen Inject 50 Units under the skin once daily at bedtime. 11/17/2023 Active Start: 11-14-2023 insulin glargi ne (Basaglar KwikPen) 100 UNIT/ML pen Indications: Type 2 diabetes mellitus with hyperglycemia, unspecified whether web services professional insulin use (CMS/HCC) INJECT 86 UNITS UNDER THE SKIN AT AT BEDTIME 75 mL 3 11/14/2023 Active insulin glargine (Semglee) 100 UNIT/ML injection Inject 86 Units under the skin at bedtime. 0 Active Semglee 100 UNIT /ML as directed Subcutaneous Not-Taking Insulin Glargine-Yfgn (2 sources) Start: 05-18-2024 inject 50 [IU] by subcutaneous injection at bedtime Insulin Glargine-Yfgn Active 50 UNIT SUBCUT Bedtime May 18, 2024 12:00am insulin lispro 100 unt/ml injectable solution (1 source) Insulin Analog Start: 06-21-2024 insulin, regular, human 100 unt/ml injectable solution (20 sources) Insulin Start: 09-22-2024 insulin regular (NovoLIN R) 100 UNIT/ML injection Indications: Type 2 diabetes mellitus with hyperglycemia, with long-term current use of insulin (CMS/HCC) Inject 0.22 mL (22 Units) under the skin in the morning and 0.22 mL (22 Units) at noon and 0.22 mL (22 Units) in the evening. Inject with meals. Pt has sliding scale so disregard sig. 40 mL 2 09/22/2024 Active Start: 01-29-2024 End: 09-22-2024 inject 22 [IU] by subcutaneous injection once insulin regular (NovoLIN R) 100 UNIT/ML injection Indications: Type 2 diabetes mellitus with hyperglycemia, with long-term current use of insulin (CMS/HCC) INJECT DIRECTED UNDER THE SKIN PER SLIDING SCALE WITH MAX OF 22 UNITS PER DAY 40 mL 2 01/29/2024 09/22/2024 Discontinued (Reorder) Start: 01-13-2023 inject 9 [IU] by sub cutaneous injection three times daily Insulin Regular Human (Novolin R Flexpen) 100 unit/mL (3 mL) Insulin Pen Active 9 UNIT SUBCUT Three times daily January 13, 2023 1:00am Start: 10-24-2022 NovoLIN R 100 UNIT/ML injection Inject 20 mL under the skin in the morning. 0 10/24/2022 Active Novolin R Regula r U-100 Insulin 100 unit/mL injection solution inject by subcutaneous route per prescriber's instructions. Insulin dosing requires individualization. 0.00 - Active NovoLIN R 100 UN IT/ML as directed Injection Active ketorolac tromethamine 5 mg/ml ophthalmic solution (13 sources) Nonsteroidal Anti-inflammatory Drug, Cyclooxygenase Inhibitor Start: 09-01-2024 ketorolac (Acul ar) 0.5 % ophthalmic solution 09/01/2024 Active Start: 07-13-2024 End: 08-12-2024 take 1 drop(s) into the eye(s) in the morning ketorolac (Acular) 0.5 % ophthalmic solution Indications: Cataract mature, total senile Administer 1 drop into affected eye(s) in the morning and 1 drop before bedtime. 5 mL 1 07/13/2024 08/12/2024 Active levoFLOXacin 500 mg oral tablet (7 sources) Quinolone Antimicrobial Start: 09-22-2024 End: 10-02-2024 take 1 tablet by mouth once daily levoFLOXacin (Levaquin) 500 MG tablet Indications: Acute asthmatic bronchitis (CMS/HCC) Take 1 tablet (500 mg) by mouth Daily for 10 days 10 tablet 09/22/2024 10/02/2024 Active lisinopril 20 mg oral tablet (20 sources) Angiotensin Converting Enzyme Inhibitor Start: 05-05-2019 lisinopril 20 MG tablet Take 20 mg by mouth 05/10/2024 Active LORazepam 0.5 mg oral tablet (20 sources) Benzodiazepine take 1 tablet by mouth every eight hours as needed LORazepam (Ativan) 0.5 MG tablet Take 0.5 mg by mouth every 8 (eight) hours if needed Active take 1 tablet by west th every twenty-four hours LORazepam 0.5 MG 1 tablet at bedtime as needed Orally Once a day Not-Taking Multivitamin preparation (1 source) Multiple Vitamin s tablet qd - Active ofloxacin 3 mg/ml ophthalmic solution (1 source) Quinolone Antimicrobial Start: 07-13-20 End: 07-14-20 take 1 drop(s) into the eye(s) five times daily ofloxacin (Ocuflox) 0.3 % ophthalmic solution Indications: Cataract mature, total senile Administer 1 drop into the right eye 5 (five) times a day for 1 day Starting 1 day before surgery, continue after surgery as directed 5 mL 1 07/13/2024 07/14/2024 Active ondansetron 4 mg disintegrating oral tablet (7 sources) Serotonin-3 Receptor Antagonist Start: 02-12-20 take 1 tablet by mouth every eight hours as needed ondansetron ODT (Zofran-ODT) 4 mg disintegrating tablet Take 1 tablet (4 mg) by mouth every 8 hours if needed for nausea or vomiting. 02/12/2024 Active take 1 tablet by west th every twenty-four hours Ondansetron HCl 4 MG 1 tablet Orally Onc e a day Not-Taking Ozempic (3 sources) Ozempic Active Ozempic, 1 MG/DOSE, 4 MG/3ML solution pen-injector (2 sources) inject 1 mg by subcutaneous injection every week Ozempic, 1 MG/DOSE, 4 MG/3ML solution pen-injector Inject 1 mg under the skin 1 (one) time per week. 0 Active microencapsulated potassium chloride 20 meq extended release oral tablet (20 sources) Start: 10-18-2024 take 1 tablet by mouth once daily potassium chloride CR (Klor-Con M20) 20 MEQ ER tablet Indications: Benign essential hypertension (CMS/HCC) Take 1 tablet (20 mEq) by mouth Daily 90 tablet 10/18/2024 Active Start: 01-13-2023 take 1 tablet by west th in the morning potassium chloride CR (Klor-Con M20) 20 MEQ ER tablet Indications: Benign essential hypertension (CMS/HCC) Take 1 tablet (20 mEq) by mouth in the morning. 90 tablet 06/04/2023 Active prednisoLONE acetate 10 mg/ml ophthalmic suspension (13 sources) Corticosteroid Start: 09-01-2024 prednisoLONE a cetate (Pred-Forte) 1 % ophthalmic suspension 09/01/2024 Active Start: 07-13-2024 End: 07-27-2024 prednisoLONE acetate (Pred-F orte) 1 % ophthalmic suspension Indications: Cataract mature, total senile Administer 1 drop into both eyes in the morning and 1 drop at noon and 1 drop in the evening and 1 drop before bedtime. Do all this for 14 days. 5 mL 1 07/13/2024 07/27/2024 Active spironolactone 25 mg oral tablet (20 sources) Aldosterone Antagonist End: 06-21-2024 take 1 tablet by mouth in the morning spironolactone (Aldactone) 25 MG tablet Take 25 mg by mouth in the morning. Active Completed/Discontinued Medications Medication Drug Class(es) Dates Sig (Normalized) Sig (Original) acetaminophen 325 mg / oxyCODONE hydrochloride 5 mg oral tablet (7 sources) Opioid Agonist Start: 06-15-2024 End: 06-25-2024 take 1 tablet by mouth every six hours for pain oxyCODONE-acetamino phen (Percocet) 5-325 mg tablet Indications: PAD (peripheral artery disease) (CMS-HCC) Take 1 tablet by mouth every 6 hours if needed for severe pain (7 - 10) for up to 7 days. 5 tablet 06/15/2024 06/22/2024 Discontinued (Stop Taking at Discharge) Start: 06-03-2024 End: 06-15-2024 take 1 tablet by mouth every eight hours as needed for pain oxyCODONE-acetaminophen (Percocet) 5-325 mg tablet TAKE 1 TABLET BY MOUTH EVERY 8 HOURS NEEDED FOR PAIN FOR 10 DAYS 06/03/2024 06/15/2024 Discontinued (Discontinued by another clinician) Start: 12-09-2023 End: 12-14-2023 take 1 tablet by mouth every eight hours for pain oxyCODONE-acetaminophen (Percocet) 5-325 MG tablet Indications: Pain Take 1 tablet by mouth every 8 (eight) hours if needed for severe pain for up to 5 days 15 tablet 0 12/09/2023 12/14/2023 Active Albuterol Sulfate (2.5 MG/ 3 ML) 2.5 MG/3ML 0.083% Nebulization Solution (3 sources) Albuterol Sulfat e (2.5 MG/ 3 ML) 2.5 MG/3ML 0.083% Nebulization Solution 3ml Inhalation 4 times a day Not-Taking Albuterol Sulfat e (2.5 MG/ 3 ML) 2.5 MG/3ML 0.083% Nebulization Solution 3ml Inhalation 4 times a day Active aspirin 81 mg chewable tablet (9 sources) Platelet Aggregation Inhibitor, Nonsteroidal Anti-inflammatory Drug Start: 01-13-2023 End: 05-18-2024 take 81 mg by mouth once daily Aspirin Discontinued 81 MG PO Daily January 13, 2023 1:00am May 18, 2024 10:44am Baby Aspirin Act renu dicyclomine hydrochloride 20 mg oral tablet (20 sources) Anticholinergic Start: 01-13-2023 End: 05-19-2024 take 20 mg by mouth three times daily Dicyclomine Discontinued 20 MG PO Three times daily January 13, 2023 1:00am May 19, 2024 8:19am take 1 tablet by west four times daily as needed dicyclomine (Bentyl) 20 MG tablet Take 2 0 mg by mouth 4 (four) times a day as needed. Active ferrous sulfate 140 mg extended release oral tablet (9 sources) Start: 01-13-2023 End: 05-18-2024 take 140 mg by mouth once daily Ferrous Sulfate Discontinued 140 MG PO Daily January 13, 2023 1:00am May 18, 2024 10:44am ferrous sulfate 325 (65 Fe) MG tablet Take 325 mg by mouth in the morning and 325 mg at noon and 325 mg in the evening. Take with meals. 0 Active Ferrous Sulfate Active C-[id number] 3-35-2 MG (3 sources) take 1 tablet by mouth twice daily [id number] 3-35-2 MG 1 tablet Orally Twice a day Not-Taking methylPREDNISolone (2 sources) Corticosteroid Sta rt: 4 End : 4 methylPREDNISolone (Medrol Dospak) 4 MG tablets Indications: Acute asthmatic bronchitis (CMS/HCC) Follow schedule on package instructions 21 tablet 09/22/2024 09/29/2024 metoprolol tartrate 100 mg oral tablet (3 sources) beta-Adrenergic Stuart take 1 tablet by mouth every twelve hours Metoprolol Tartrate 100 MG 1 tablet with food Orally Twice a day Not-Taking Semaglutide (5 sources) Sta rt: 3 End : 4 inject 1 mg by subcutaneous injection every week Semaglutide (Ozempic) 1 mg/dose (4 mg/3 mL) pen injector Discontinued 1 MG SUBCUT every week January 13, 2023 1:00am May 18, 2024 10:45am Start: 01-13-2023 inject 1 mg by subcu taneous injection every week Semaglutide (Ozempic) 1 mg/dose (4 mg/3 mL) pen injector Active 1 MG SUBCUT every week January 13, 2023 1:00am Start: 01-13-2023 inject 1 mg by subcu taneous injection every week Semaglutide (Ozempic) 1 mg/dose (4 mg/3 mL) pen injector Active 1 MG SUBCUT every week January 13, 2023 12:00am Semglee 100 UNIT/ML (2 sources) Semglee 100 UNIT /ML as directed Subcutaneous Not-Taking 1000 ml sodium chloride 9 mg/ml injection (1 source) Start: 06-21-2024 End: 06-22-2024 125 mL/hr, intravenous, Continuous, Starting on Fri06/21/24 at 1745, For 6 hours, Recovery & On Unit, 6-12 hours post procedure. Post-Procedure Hydration Protocol ACC/AHA/SCAI WHEAT DEXTRIN (3 sources) Benefiber - as d irected Orally Not-Taking Benefiber - as d irected Orally Active Problems Active Problems Problem Classification Problem Date Documented Da te Episodic/Chronic Acute myocardial infarction (2 sources) Non-ST elevation (NSTEMI) myocardial infarction; Translations: [NON-ST ELEVATION MYOCARDIAL INFARCT] Onset: 2 Chronic Anxiety disorders (20 sources) Generalized anxiety disorder; Translations: [Generalized anxiety disorder] Onset: 3 06-04-2023 Chronic Asthma (20 sources) Asthmatic bronchitis; Translations: [Unspecified asthma, uncomplicated] Onset: 8 06-24-2023 Chronic Cardiac dysrhythmias (20 sources) Unspecified atrial fibrillation; Translations: [Paroxysmal atrial fibrillation] Onset: 2 06-04-2023 Chronic Cataract (20 sources) Combined forms of age-related cataract, bilateral; Translations: [Age-related nuclear cataract, bilateral] Onset: 4 Chronic Chronic ulcer of skin (20 sources) Non-pressure chronic ulcer of other part of left foot limited to breakdown of skin; Translations: [Non-pressure chronic ulcer of other part of left foot with fat layer exposed] Onset: 3 Chronic Complication of device; implant or graft (20 sources) Arteriosclerosis of arterial coronary artery bypass graft; Translations: [Atherosclerosis of coronary artery bypass graft(s) without angina pectoris] Onset: 3 06-24-2023 Chronic Congestive heart failure; nonhypertensive (20 sources) Acute combined systolic (congestive) and diastolic (congestive) heart failure; Translations: [Acute combined systolic and diastolic heart failure] Onset: 2 06-24-2023 Chronic Coronary atherosclerosis and other heart disease (20 sources) Atherosclerotic heart disease of [place] coronary artery without angina pectoris; Translations: [Coronary atherosclerosis] Onset: 2 06-04-2023 Chronic Deficiency and other anemia (4 sources) Anemia, unspecified; Translations: [Anemia, unspecified] Onset: 4 Episodic Diabetes mellitus with complications (20 sources) Diabetes mellitus due to underlying condition with foot ulcer; Translations: [Type 2 diabetes mellitus with hyperglycemia] Onset: 1 Resolved: 2 Chronic Diabetes mellitus without complication (20 sources) Type 2 diabetes mellitus without complications; Translations: [Type 2 diabetes mellitus without complication] Onset: 3 Resolved: 4 06-24-2023 Chronic Disorders of lipid metabolism (20 sources) Pure hypercholesterolemia, unspecified; Translations: [Mixed hyperlipidemia] Onset: 2 06-04-2023 Chronic Diverticulosis and diverticulitis (20 sources) Diverticulosis of colon; Translations: [Diverticulosis of large intestine without perforation or abscess without bleeding] Onset: 0 06-04-2023 Chronic E Codes: Fall (1 source) Unspecified fall, initial encounter; Translations: [UNSPECIFIED FALL INITIAL ENCOUNTER] Onset: 3 Episodic Esophageal disorders (1 source) Gastro-esophageal reflux disease without esophagitis; Translations: [GERD WITHOUT ESOPHAGITIS] Onset: 2 Chronic Essential hypertension (20 sources) Essential (primary) hypertension; Translations: [Benign essential hypertension] Onset: 2 06-04-2023 Chronic Gastritis and duodenitis (20 sources) Atrophic gastritis; Translations: [Chronic atrophic gastritis without bleeding] Onset: 5 06-24-2023 Chronic Gout and other crystal arthropathies (20 sources) Chondrocalcinosis; Translations: [Other chondrocalcinosis, unspecified site] Onset: 3 06-24-2023 Chronic Headache; including migraine (20 sources) Migraine; Translations: [Migraine, unspecified, not intractable, without status migrainosus] Onset: 0 06-24-2023 Chronic Headache; including migraine (3 sources) Headache; including migraine; Translations: [HEADACHE UNSPECIFIED] Onset: 3 Heart valve disorders (20 sources) Nonrheumatic aortic (valve) stenosis; Translations: [Aortic stenosis, non-rheumatic ] Onset: 9 Chronic Hypertension with complications and secondary hypertension (1 source) Hypertensive heart disease with heart failure; Translations: [HTN HEART DISEASE W/HEART FAIL] Onset: 2 Chronic Immunizations and screening for infectious disease (2 sources) Vaccination needed; Translations: [Encounter for immunization] 09-30-2024 Episodic Infective arthritis and osteomyelitis (except that caused by tuberculosis or sexually transmitted disease) (20 sources) Infection of bone; Translations: [Osteomyelitis, unspecified] Onset: 3 06-24-2023 Chronic Menopausal disorders (20 sources) Decreased estrogen level; Translations: [Other primary ovarian failure] Onset: 7 06-24-2023 Chronic Mycoses (8 sources) Pain in toe; Translations: [Tinea unguium] 09-27-2024 Episodic Osteoarthritis (1 source) Unspecified osteoarthritis, unspecified site; Translations: [UNSPECIFIED OSTEOARTHRITIS UNS SITE] Onset: 2 Chronic Other acquired deformities (2 sources) Contracture of joint of right ankle; Translations: [Contracture, right ankle] 12-09-2024 Chronic Other aftercare (1 source) portfolio assistant (current) use of anticoagulants; Translations: [PUBLICATIONS INSPECTOR CURRNT USE ANTICOAGULANTS] Onset: 3 Episodic Other aftercare (1 source) Other web services professional (current) drug therapy; Translations: [OTH [facility] CURRENT DRUG THERAPY] Onset: 3 Episodic Other aftercare (1 source) portfolio assistant (current) use of antithrombotics/antipl atelets; Translations: [PUBLICATIONS INSPECTOR ANTITHROMBOT/ANTIPLATL ETS] Onset: 3 Episodic Other aftercare (1 source) portfolio assistant (current) use of insulin; Translations: [[facility] CURRENT USE OF INSULIN] Onset: 3 Episodic Other aftercare (1 source) long-term (current) use of aspirin; Translations: [[facility] CURRENT USE OF ASPIRIN] Onset: 3 Episodic Other circulatory disease (2 sources) Peripheral vascular angioplasty status; Translations: [Peripheral vascular angioplasty status] Onset: 4 Episodic Other circulatory disease (2 sources) Low blood pressure; Translations: [Hypotension, unspecified] 09-30-2024 Episodic Other connective tissue disease (2 sources) Calcaneal spur of right foot; Translations: [Calcaneal spur, right foot] 12-09-2024 Episodic Other connective tissue disease (2 sources) Right achilles tendonitis; Translations: [Achilles tendinitis, right leg] 12-09-2024 Episodic Other eye disorders (1 source) Vitreous hemorrhage, bilateral Chronic Other eye disorders (1 source) Vitreous hemorrhage Onset: 2 Chronic Other eye disorders (4 sources) Vitreous hemorrhage, left eye Chronic Other eye disorders (20 sources) Hemorrhage of right vitreous body; Translations: [Vitreous hemorrhage, right eye] Onset: 4 05-05-2024 Chronic Other gastrointestinal disorders (20 sources) Irritable bowel syndrome; Translations: [Irritable bowel syndrome without diarrhea] Onset: 3 06-04-2023 Chronic Other injuries and conditions due to external causes (1 source) Other specified injuries of head, initial encounter; Translations: [OTH SPEC INJURIES HEAD INITIAL ENC] Onset: 3 Episodic Other lower respiratory disease (2 sources) Cough; Translations: [Acute cough] 09-22-2024 Episodic Other non-traumatic joint disorders (1 source) Pain in left wrist; Translations: [PAIN IN LEFT WRIST] Onset: 3 Episodic Peripheral and visceral atherosclerosis (20 sources) Peripheral vascular disease; Translations: [Peripheral vascular [...] Documented Date Episodic/Chronic Bacterial infection; unspecified site (20 sources) Klebsiella pneumoniae [K. pneumoniae] as the cause of diseases classified elsewhere; Translations: [Staphylococcal infectious disease] Onset: 03-17-2013 06-24-2023 Episodic Complication of device; implant or graft (20 sources) Mechanical complication of musculoskeletal implant; Translations: [Other mechanical complication of other internal orthopedic devices, implants and grafts, initial encounter] Onset: 02-23-2013 06-24-2023 Episodic Complications of surgical procedures or medical care (20 sources) Dehiscence of surgical wound; Translations: [Disruption of external operation (surgical) wound, not elsewhere classified, initial encounter] Onset: 04-15-2013 06-24-2023 Episodic Coronary atherosclerosis and other heart disease (1 source) Presence of aortocoronary bypass graft; Translations: [PRESENCE AORTOCORONARY BYPASS GRAFT] Onset: 07-02-2022 Episodic Deficiency and other anemia (1 source) Iron deficiency anemia, unspecified; Translations: [IRON DEFICIENCY ANEMIA UNSPECIFIED] Onset: 07-10-2022 Episodic Deficiency and other anemia (1 source) Anemia; Translations: [Anemia, unspecified] 06-15-2024 Episodic Fluid and electrolyte disorders (2 sources) Hypo-osmolality and hyponatremia; Translations: [Hypo-osmolality and hyponatremia] Onset: 12-03-2023 Episodic Gangrene (20 sources) Gangrenous disorder; Translations: [Gangrene, not elsewhere classified] Onset: 06-24-2023 12-11-2023 Episodic Mood disorders (20 sources) Mood disorders Onset: 04-01-2024 04-01-2024 Nonspecific chest pain (20 sources) Chest pain, unspecified; Translations: [Chest pain] Onset: 12-29-2012 Episodic Other bone disease and musculoskeletal deformities (20 sources) Osteopenia; Translations: [Other specified disorders of bone density and structure, unspecified site] Onset: 06-04-2023 06-04-2023 Episodic Other circulatory disease (3 sources) History of peripheral vascular angioplasty; Translations: [Peripheral vascular angioplasty status] 06-21-2024 Episodic Other connective tissue disease (20 sources) Pain in limb; Translations: [Pain in unspecified limb] Onset: 03-29-2010 06-24-2023 Episodic Other connective tissue disease (2 sources) Pain of toes of bilateral feet; Translations: [Pain in right toe(s)] 07-09-2024 Episodic Other lower respiratory disease (3 sources) Shortness of breath; Translations: [SHORTNESS OF BREATH] Onset: 07-04-2022 Episodic Other lower respiratory disease (1 source) Hypoxemia; Translations: [HYPOXEMIA] Onset: 07-10-2022 Episodic Other nervous system disorders (2 sources) Anesthesia of skin; Translations: [Anesthesia of skin] Onset: 12-03-2023 Episodic Other nutritional; endocrine; and metabolic disorders (20 sources) Overweight; Translations: [Overweight] Onset: 06-23-2013 06-24-2023 Episodic Residual codes; unclassified (1 source) Patient's intentional underdosing of medication regimen for other reason; Translations: [PT INTENT UNDERDOS MED OTH REASON] Onset: 07-02-2022 Episodic Residual codes; unclassified (1 source) Acute pain; Translations: [Pain, unspecified] 06-22-2024 Episodic Unclassified (1 source) CONTACT W/AND (SUSP) EXPOS COVID-19; Translations: [CONTACT W/AND (SUSP) EXPOS COVID-19] Onset: 07-21-2022 Unclassified (1 source) DM with PDR without ME (chief complaint) Onset: 06-30-2024 Unclassified (1 source) Possible VH (chief complaint) Onset: 05-06-2024 Unclassified (1 source) 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) Onset: 09-27-2022 Unclassified (1 source) diabetic eye exam (chief complaint) NO VISION CHANGES (chief complaint) Onset: 10-10-2020 Unclassified (2 sources) diabetic retinopathy (chief complaint) denies vision changes (chief complaint) Onset: 10-26-2019 Resolved: 08-29-2020 Unclassified (1 source) diabetic retinopathy (chief complaint) denies new vision change (chief complaint) Onset: 09-22-2019 Unclassified (1 source) diabetic retinopathy (chief complaint) Decreased vision (chief complaint) Onset: 05-05-2019 Urinary tract infections (1 source) Urinary tract infection, site not specified; Translations: [UTI SITE NOT SPECIFIED] Onset: 07-10-2022 Episodic Results Test Name Value Interpretation Reference Range Facility Laboratory - Hematology and Cell countson 09-22-2024 HbA1c (Bld) [Mass fraction] 9.5 % [facility] No Panel Informationon 09-22 Interpretation and review of laboratory results Abnormal [facility] Office Visiton 08-18-2024 Follow-up visit [id number] Pancho Patel 1955 F Date Provider Department Center 08/18/2024 [facility] Family History Problem Relation Age of Onset Diabetes Mother Cancer Mother Heart disease Father Alcohol abuse Brother Diabetes Brother Family Status - Relation Status Age at Mother Father Brother Level of Service:12873 [place] OFFICE/OUTPATIENT ESTABLISHED MOD MDM 30 MIN Reason for Visit and Comments: Coronary Artery Disease [187] Atrial Fibrillation [80] Valve Disorder [3372] Peripheral Vascular Disease [458] Normal [facility] US ANKLE BRACHIAL INDEX (BRIDGER) WITHOUT EXERCISEon 07-20-2024 [facility] US ANKLE BRACHIAL INDEX (BRIDGER) WITHOUT EXERCISE [place] [id number] and Vascular Lab Report [facility] US ANKLE BRACHIAL INDEX (BRIDGER) WITHOUT EXERCISE Patient Name: MARIMAR PATEL Reading Physician: [id number] Nury Blackwell MD, RPVI Study Date: 07/20/2024 Ordering Physician: [id number] TERRI SOSA MRN/PID: [id number] Technologist: Chanda Martinez T Technologist 2: Date of /Age: 8 1955 / 69 years Gender: F Admission Status: Outpatient Location Performed: [facility] Diagnosis/ICD: Peripheral vascular disease, unspecified-I73.9 CPT Codes: 91407 Peripheral artery BRIDGER Only CONCLUSIONS: Right Lower PVR: Evidence of moderate arterial occlusive disease in the right lower extremity at rest. Decreased digital perfusion noted. Multiphasic flow is noted in the right common femoral artery, right posterior tibial artery and right dorsalis pedis artery. Left Lower PVR: Evidence of mild arterial occlusive disease in the left lower extremity at rest. Decreased digital perfusion noted. Multiphasic flow is noted in the left common femoral artery, left posterior tibial artery and left dorsalis pedis artery. Comparison: Compared with study from 06/15/2024, Improvement of left BRIDGER is noted after procedure done 06/21/2024. Imaging & Doppler Findings: RIGHT Lower PVR Pressures Ratios Right Posterior Tibial (Ankle) 123 mmHg 0.67 Right Dorsalis Pedis (Ankle) 100 mmHg 0.54 Right Digit (Great Toe) 24 mmHg 0.13 LEFT Lower PVR Pressures Ratios Left Posterior Tibial (Ankle) 108 mmHg 0.59 Left Dorsalis Pedis (Ankle) 132 mmHg 0.72 Left Digit (Great Toe) 59 mmHg 0.32 Right Left Brachial Pressure 175 mmHg 184 mmHg [id number] JACOB Reyes MD Final Normal [facility] US Eye+Orbit - bilateralon 0 07-13-2024 Diagnosis: Cataract both eyes (OU) Testing Indication: Performed for preop measurements in the determination of an intraocular lens (IOL) for both eyes (OU) Test Reliability: Good quality both eyes (OU) Interpretation: Good measurements for intraocular lens (IOL) calculation purposes. Calculation made for both eyes (OU). [facility] Radiology Study observation (narrative) [facility] ACT Coag (Bld)on 06-21-2024 Interpretation and review of laboratory results Abnormal [facility] Interpretation and review of laboratory results Abnormal [facility] Interpretation and review of laboratory results Abnormal [facility] Interpretation and review of laboratory results Abnormal [facility] Interpretation and review of laboratory results Abnormal [facility] ACTIVATED CLOTTING TIME LOWo n 06-21-2024 ACT Coag (Bld) 282 s [facility] Comment on above: Target ACT range coty l vary based on the patient population, clinical status, and surgical intervention occurring. ACT Coag (Bld) 234 s [facility] Comment on above: Target ACT range coty l vary based on the patient population, clinical status, and surgical intervention occurring. ACT Coag (Bld) 271 s [facility] Comment on above: Target ACT range coty l vary based on the patient population, clinical status, and surgical intervention occurring. ACT Coag (Bld) 316 s [facility] Comment on above: Target ACT range coty l vary based on the patient population, clinical status, and surgical intervention occurring. ACT Coag (Bld) 334 [facility] Comment on above: Target ACT range coty l vary based on the patient population, clinical status, and surgical intervention occurring. Activated clotting timeon ACT Coag (Bld) 282 s [facility] [phone] [facility] Comment on above: Result Comment: Targ et ACT range will vary based on the patient population, clinical status, and surgical intervention occurring. Performed By: #### 3 184-9 #### MOHIT JIMENEZER L ([id number]) [facility] ([facility]) [id number] [place] [address] ACT Coag (Bld) [address] Comment on above: Result Comment: Targ et ACT range will vary based on the patient population, clinical status, and surgical intervention occurring. Performed By: #### 3 184-9 #### MOHIT ARREGUIN L ([id number]) [facility] ([facility]) [id number] [place] [address] ACT Coag (Bld) [address] Comment on above: Result Comment: Targ et ACT range will vary based on the patient population, clinical status, and surgical intervention occurring. Performed By: #### 3 184-9 #### MOHIT JIMENEZER L ([id number]) [facility] ([facility]) [address] [place] [address] ACT Coag (Bld) [address] Comment on above: Result Comment: Targ et ACT range will vary based on the patient population, clinical status, and surgical intervention occurring. Performed By: #### 3 184-9 #### MOHIT CORTEZMOGHISLAINE L ([id number]) [facility] ([facility]) [id number] [place] [address] ACT Coag (Bld) [address] Comment on above: Result Comment: Targ et ACT range will vary based on the patient population, clinical status, and surgical intervention occurring. Performed By: #### 3 184-9 #### MOHIT ARREGUIN L ([id number]) [facility] ([facility]) [address] [place] [address]1812 INVASIVE VASCULAR PROCEDUREo n 06-21-2024 INVASIVE VASCULAR PROCEDURE [facility], Screener Perfumer, [address] [place] [id number] Cardiovascular Catheterization Report Patient Name: MARIMAR PATEL Performing Physician: Tatum Curry MD Study Date: 06/21/2024 Verifying Physician: Tatum Curry MD MRN/PID: [id number] Concrete Pointer/Co-scrub: Ordering Physician: [id number] MARGARETH ESCAMILLA Date of /Age: 8 1955 / 68 years Fellow: [id number] Braeden Colin MD Gender: F Fellow: Study: Peripheral Intervention Procedure Description: After infiltration with 2% Lidocaine utilizing two-dimensional ultrasound and fluoroscopic guidance, the right femoral artery was cannulated with a Micro-Access Kit using a modified Seldinger technique. Subsequently a 5 [place] sheath was placed contralateral in the right femoral artery. The arterial sheath was sized up to 6 [place]ian. After completion of the procedure, A 6/7F Vascade Closure System was placed per protocol. Following routine access via the right SPOON MAKER, we crossed up and over into the left iliac system using Wholey wire and IM catheter. We exchanged the 5F IM catheter into a 5F MP catheter that was placed in the left popliteal artery for more selective images of BTK vessels. Angiogram views were obtained for diagnostic purposes prior to intervention. Left Lower Extremity Arterial Findings: Left Common Iliac Artery: The left common iliac artery revealed no evidence of significant disease. Ectatic proximal left KULDIP. Left Extermal Iliac Artery: The left external iliac artery revealed no evidence of significant disease. Left Internal Iliac Artery: The left internal iliac artery revealed no evidence of significant disease. Left Common Femoral Artery: The left common femoral artery revealed no evidence of significant disease. Left Profunda Femoris Artery: The left profunda femoris artery revealed no evidence of significant disease. Left Superior Femoral Artery: Severe disease of the entire SFA with patent distal SFA stent. Left Popliteal Artery: Severe disease of the entire popliteal. Left Tibial-Peroneal Trunk: The left tibial-peroneal trunk revealed no evidence of significant disease. Left Anterior Tibial Artery: The left anterior tibial artery revealed no evidence of significant disease. Left Posterior Tibial Artery: Entire PT is a PUBLIC HEALTH NURSE. Left Peroneal Artery: The left peroneal artery revealed no evidence of significant disease. Left Dorsalis Pedis Artery: Mid distal DP is a PUBLIC HEALTH NURSE. Peripheral Interventions: We exchanged the short right SPOON MAKER sheath into a 6F 45 cm Jose sheath. We crossed into the distal PT using Command wire. We performed multiple runs of the entire left SFA [except for the stent segement] and proximal popliteal using M hawk device, followed by WARDROBE COORDINATOR and DCB. Percutaneous peripheral intervention of the entire left superficial femoral artery and proximal popliteal . The vessel was dilated using a compliant 5.0 mm x 200 mm balloon, followed by a IN.PACT DCB 5.0 mm x 250 mm balloon, and a IN.PACT DCB 5.0 mm x 200 mm balloon. The stenosis was successfully reduced from 95% to <10%. Hemo Personnel: + +---- -----+ Name Duty + +---- -----+ Nely Curry MD, MD 1 + +---- -----+ Hemodynamic Pressures: +----+ ----+ +------ -------+ +---------+ Site Date Time Phase Name Systolic mmHg Diastolic mmHg Mean mmHg +----+ ----+ +------ -------+ +---------+ AO 06/21/2024 2:47:52 PM Rest 121 45 71 +----+ ----+ +------ -------+ +---------+ LFA 06/21/2024 3:02:24 PM Rest 94 46 64 +----+ ----+ +------ -------+ +---------+ Complications: No in-lab complications observed. Cardiac Cath Post Procedure Notes: Post Procedure Diagnosis: See below. Blood Loss: Estimated blood loss during the procedure was 5 mls. Specimens Removed: Number of specimen(s) removed: none. CONCLUSIONS: 1. LLE severe claudication and CLI [place] class V: Patient status post successful revascularization using directional atherectomy_PTA_DCB to entire left SFA and popliteal with good results. 2. Continue home Plavix, resume home Eliquis tomorrow. 3. Follow-up in the clinic in 4 weeks with repeat BRIDGER/TBI. If medial malleolus wound does not heal, then may consider PT intervention. ICD 10 Codes: Atherosclerosis of [place] arteries of extremities with intermittent claudication, left leg-I70.212; Atherosclerosis of [place]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 with ulceration of other part of foot-I70.245 CPT Codes: Angiography, Each 1st additional vessel studied after basic exam-72362; Angiography, Extremity,uni,S&I (PER)-[id number]; Ultrasound guidance for vascular access-81399; Revasc Fem/Po (more content not included)... [facility] Invasive vascular procedureo n 06-21-2024 [facility], Screener Perfumer, [address] [place] [address] Cardiovascular Catheterization Report Patient Name: MARIMAR PATEL Performing Physician: [id number] Curry MD Study Date: 06/21/2024 Verifying Physician: Tatum Curry MD MRN/PID: [id number] Concrete Pointer/Co-scrub: Ordering Physician: [id number] MARGARETH ESCAMILLA Date of /Age: 8 1955 / 68 years Fellow: [id number] Braeden Colin MD Gender: F Fellow: Study: Peripheral Intervention Procedure Description: After infiltration with 2% Lidocaine utilizing two-dimensional ultrasound and fluoroscopic guidance, the right femoral artery was cannulated with a Micro-Access Kit using a modified Seldinger technique. Subsequently a 5 [place]ian sheath was placed contralateral in the right femoral artery. The arterial sheath was sized up to 6 Belarusian. After completion of the procedure, A 6/7F Vascade Closure System was placed per protocol. Following routine access via the right SPOON MAKER, we crossed up and over into the left iliac system using Wholey wire and IM catheter. We exchanged the 5F IM catheter into a 5F MP catheter that was placed in the left popliteal artery for more selective images of BTK vessels. Angiogram views were obtained for diagnostic purposes prior to intervention. Left Lower Extremity Arterial Findings: Left Common Iliac Artery: The left common iliac artery revealed no evidence of significant disease. Ectatic proximal left KULDIP. Left Extermal Iliac Artery: The left external iliac artery revealed no evidence of significant disease. Left Internal Iliac Artery: The left internal iliac artery revealed no evidence of significant disease. Left Common Femoral Artery: The left common femoral artery revealed no evidence of significant disease. Left Profunda Femoris Artery: The left profunda femoris artery revealed no evidence of significant disease. Left Superior Femoral Artery: Severe disease of the entire SFA with patent distal SFA stent. Left Popliteal Artery: Severe disease of the entire popliteal. Left Tibial-Peroneal Trunk: The left tibial-peroneal trunk revealed no evidence of significant disease. Left Anterior Tibial Artery: The left anterior tibial artery revealed no evidence of significant disease. Left Posterior Tibial Artery: Entire PT is a PUBLIC HEALTH NURSE. Left Peroneal Artery: The left peroneal artery revealed no evidence of significant disease. Left Dorsalis Pedis Artery: Mid distal DP is a PUBLIC HEALTH NURSE. Peripheral Interventions: We exchanged the short right SPOON MAKER sheath into a 6F 45 cm Jose sheath. We crossed into the distal PT using Command wire. We performed multiple runs of the entire left SFA [except for the stent segement] and proximal popliteal using M hawk device, followed by WARDROBE COORDINATOR and DCB. Percutaneous peripheral intervention of the entire left superficial femoral artery and proximal popliteal . The vessel was dilated using a compliant 5.0 mm x 200 mm balloon, followed by a IN.PACT DCB 5.0 mm x 250 mm balloon, and a IN.PACT DCB 5.0 mm x 200 mm balloon. The stenosis was successfully reduced from 95% to <10%. Hemo Personnel: + +---- -----+ Name Duty + +---- -----+ Nely Curry MD, MD 1 + +---- -----+ Hemodynamic Pressures: +----+ ----+ +------ -------+ +---------+ Site Date Time Phase Name Systolic mmHg Diastolic mmHg Mean mmHg +----+ ----+ +------ -------+ +---------+ AO 06/21/2024 2:47:52 PM Rest 121 45 71 +----+ ----+ +------ -------+ +---------+ LFA 06/21/2024 3:02:24 PM Rest 94 46 64 +----+ ----+ +------ -------+ +---------+ Complications: No in-lab complications observed. Cardiac Cath Post Procedure Notes: Post Procedure Diagnosis: See below. Blood Loss: Estimated blood loss during the procedure was 5 mls. Specimens Removed: Number of specimen(s) removed: none. CONCLUSIONS: 1. LLE severe claudication and CLI [place] class V: Patient status post successful revascularization using directional atherectomy_PTA_DCB to entire left SFA and popliteal with good results. 2. Continue home Plavix, resume home Eliquis tomorrow. 3. Follow-up in the clinic in 4 wee (more content not included)... Nely Edgar MD - 06/21/2024 [facility], [employer], [address] [place] [address] Cardiovascular Catheterization Report Patient Name: MARIMAR PATEL Performing Physician: [id number] Curry MD Study Date: 06/21/2024 Verifying Physician: Tatum Curry MD MRN/PID: [id number] Concrete Pointer/Co-scrub: Ordering Physician: [id number] MARGARETH ESCAMILLA Date of /Age: 8 1955 / 68 years Fellow: [id number] Braeden Colin MD Gender: F Fellow: Study: Peripheral Intervention Procedure Description: After infiltration with 2% Lidocaine utilizing two-dimensional ultrasound and fluoroscopic guidance, the right femoral artery was cannulated with a Micro-Access Kit using a modified Seldinger technique. Subsequently a 5 Belarusian sheath was placed contralateral in the right femoral artery. The arterial sheath was sized up to 6 Belarusian. After completion of the procedure, A 6/7F Vascade Closure System was placed per protocol. Following routine access via the right SPOON MAKER, we crossed up and over into the left iliac system using Wholey wire and IM catheter. We exchanged the 5F IM catheter into a 5F MP catheter that was placed in the left popliteal artery for more selective images of BTK vessels. Angiogram views were obtained for diagnostic purposes prior to intervention. Left Lower Extremity Arterial Findings: Left Common Iliac Artery: The left common iliac artery revealed no evidence of significant disease. Ectatic proximal left KULDIP. Left Extermal Iliac Artery: The left external iliac artery revealed no evidence of significant disease. Left Internal Iliac Artery: The left internal iliac artery revealed no evidence of significant disease. Left Common Femoral Artery: The left common femoral artery revealed no evidence of significant disease. Left Profunda Femoris Artery: The left profunda femoris artery revealed no evidence of significant disease. Left Superior Femoral Artery: Severe disease of the entire SFA with patent distal SFA stent. Left Popliteal Artery: Severe disease of the entire popliteal. Left Tibial-Peroneal Trunk: The left tibial-peroneal trunk revealed no evidence of significant disease. Left Anterior Tibial Artery: The left anterior tibial artery revealed no evidence of significant disease. Left Posterior Tibial Artery: Entire PT is a PUBLIC HEALTH NURSE. Left Peroneal Artery: The left peroneal artery revealed no evidence of significant disease. Left Dorsalis Pedis Artery: Mid distal DP is a PUBLIC HEALTH NURSE. Peripheral Interventions: We exchanged the short right SPOON MAKER sheath into a 6F 45 cm Jose sheath. We crossed into the distal PT using Command wire. We performed multiple runs of the entire left SFA [except for the stent segement] and proximal popliteal using M hawk device, followed by WARDROBE COORDINATOR and DCB. Percutaneous peripheral intervention of the entire left superficial femoral artery and proximal popliteal . The vessel was dilated using a compliant 5.0 mm x 200 mm balloon, followed by a IN.PACT DCB 5.0 mm x 250 mm balloon, and a IN.PACT DCB 5.0 mm x 200 mm balloon. The stenosis was successfully reduced from 95% to <10%. Hemo Personnel: + +---- -----+ Name Duty + +---- -----+ Nely Curry MD, MD 1 + +---- -----+ Hemodynamic Pressures: +----+ ----+ +------ -------+ +-------- -+ Site Date Time Phase Name Systolic mmHg Diastolic mmHg Mean mmHg +----+ ----+ +------ -------+ +-------- -+ AO 06/21/2024 2:47:52 PM Rest 121 45 71 +----+ ----+ +------ -------+ +-------- -+ LFA 06/21/2024 3:02:24 PM Rest 94 46 64 +----+ ----+ +------ -------+ +-------- -+ Complications: No in-lab complications observed. Cardiac Cath Post Procedure Notes: Post Procedure Diagnosis: See below. Blood Loss: Estimated blood loss during the procedure was 5 mls. Specimens Removed: Number of specimen(s) removed: none. CONCLUSIONS: 1. LLE severe claudication and CLI [place] class V: Patient status post successful revascularization using directional atherectomy_PTA_DCB to entire left SFA and popliteal with good results. 2. Continue home Plavix, resume home Eliquis tomorrow. 3. Follow-up in the clinic in 4 weeks with repeat BRIDGER/TBI. If medial malleolus wound does not heal, then may consider PT intervention. ICD 10 Codes: Atherosclerosis of [place] arteries of extremities with intermittent claudication, left leg-I70.212; Atherosclerosis of [place]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 with ulceration of other part of foot-I70.245 CPT Codes: Angiography, Each 1st additional vessel studied after basic exa (more content not included)... [facility] Work Phone: [facility] Work Phone: Radiology Study observation (narrative) [facility] Work Phone: CBC panel Auto (Bld)on 06-15 Erythrocyte distribution width (RBC) [Ratio] 14.6 % High 11.5 - 14.5 % [facility] Hematocrit (Bld) [Volume fraction] 35.8 % Low 36.0 - 46.0 % [facility] Hemoglobin (Bld) [Mass/Vol] 11.9 g/dL Low 12.0 - 16.0 g/dL [facility] Interpretation and review of laboratory results Abnormal [facility] MCH (RBC) [Entitic mass] 27.7 pg 26.0 - 34.0 pg [facility] MCHC (RBC) [Mass/Vol] 33.2 g/dL 32.0 - 36.0 g/dL [facility] MCV (RBC) [Entitic vol] 83 fL 80 - 100 fL [facility] Nucleated RBC/100 WBC (Bld) [Ratio] 0.0 % [facility] Platelets (Bld) [#/Vol] 211 10*3/uL [facility] RBC (Bld) [#/Vol] 4.30 10*6/uL [facility] WBC (Bld) [#/Vol] 13.3 10*3/uL High [facility] Erythrocyte distribution width (RBC) [Ratio] 14.6 % High 11.5-14.5 [facility] Comment on above: Performed By: #### 5 8410-2 #### MOHIT Car ([id number]) [facility] ([facility]) [address] [place] [address] 37922 Hematocrit (Bld) [Volume fraction] 35.8 % Low 36.0-46.0 [facility] Comment on above: Performed By: #### 5 8410-2 #### MOHIT Car ([id number]) [facility] ([facility]) [address] [place] [address] 53382 Hemoglobin (Bld) [Mass/Vol] 11.9 g/dL Low 12.0-16.0 [facility] Comment on above: Performed By: #### 5 8410-2 #### MOHIT Car ([id number]) [facility] ([facility]) [address] [place] [address] 89012 MCH (RBC) [Entitic mass] 27.7 pg Normal 26.0-34.0 [facility] Comment on above: Performed By: #### 5 8410-2 #### MOHIT Car ([id number]) [facility] ([facility]) [address] [place] [address] 73462 MCHC (RBC) [Mass/Vol] 33.2 g/dL Normal 32.0-36.0 [facility] Comment on above: Performed By: #### 5 8410-2 #### MOHIT Car ([id number]) [facility] ([facility]) [address] [place] [address] 93959 MCV (RBC) [Entitic vol] 83 fL Normal 80-100 [facility] Comment on above: Performed By: #### 5 8410-2 #### MOHIT Car ([id number]) [facility] ([facility]) [address] [place] [address] 11744 Nucleated RBC/100 WBC (Bld) [Ratio] 0.0 /100 WBCs Normal 0.0-0.0 [facility] Comment on above: Performed By: #### 5 8410-2 #### MOHIT Car ([id number]) [facility] ([facility]) [id number] [place] [address] 11083 Platelets (Bld) [#/Vol] 211 x10*3/uL Normal 150-450 [facility] Comment on above: Performed By: #### 5 8410-2 #### MOHIT Car ([id number]) [facility] ([facility]) [id number] [place] [address] 89879 RBC (Bld) [#/Vol] 4.30 x10*6/uL Normal 4.00-5.20 [facility] [place] Comment on above: Performed By: #### 5 8410-2 #### MOHIT Car ([id number]) [facility] ([facility]) [address] [place] [address] 53073 WBC (Bld) [#/Vol] 13.3 x10*3/uL High 4.4-11.3 [facility] [place] Comment on above: Performed By: #### 5 8410-2 #### MOHIT Car ([id number]) [facility] ([facility]) [address] [place] [address] 56326 Coagulation tissue factor in ducedon 06-15-2024 PT Coag (PPP) [Time] 12.6 s Normal 9.8-12.8 [facility] [place] Comment on above: Performed By: #### 5 902-2 #### MOHIT Car ([id number]) [facility] ([facility]) [id number] [place] [address] 95806 PT Coag (PPP) [Time]on 06-15 INR Coag (PPP) [Relative time] 1.1 {INR} 0.9 - 1.1 [facility] Interpretation and review of laboratory results Normal [facility] INR Coag (PPP) [Relative time] 1.1 Normal 0.9-1.1 [facility] Comment on above: Performed By: #### 5 902-2 #### MOHIT Car ([id number]) [facility] ([facility]) [address] [place] [address] Protime-INRon 06-15-2024 PT Coag (PPP) [Time] 12.6 s [facility] Renal function 2000 panelon 06-15-2024 Albumin BCP dye [Mass/Vol] 4.7 g/dL 3.4 - 5.0 g/dL [facility] Anion gap [Moles/Vol] 14 mmol/L 10 - 2 0 mmol/L [facility] Calcium [Mass/Vol] 9.8 mg/dL 8.6 - 10. 6 mg/dL [facility] Chloride [Moles/Vol] 104 mmol/L 98 - 10 7 mmol/L [facility] CO2 [Moles/Vol] 25 mmol/L 21 - 32 mmol/L [facility] Creatinine [Mass/Vol] 1.36 mg/dL High 0.50 - 1.05 mg/dL [facility] GFR/1.73 sq M.predicted among non-blacks MDRD (S/P/Bld) [Vol rate/Area] 42 mL/min/{1.73_m2} Low - PINF [facility] Comment on above: Calculations of moises mated GFR are performed using the 2020 CKD-EPI Study Refit equation without the race variable for the IDMS-Traceable creatinine methods. https://jasn.asnjournals.org/content//ASN.16787 89513 Glucose [Mass/Vol] 205 mg/dL High 74 - 99 mg/dL [facility] Interpretation and review of laboratory results Abnormal [facility] Phosphate [Mass/Vol] 4.1 mg/dL 2.5 - 4 .9 mg/dL [facility] Comment on above: The performance cornelius acteristics of phosphorus testing in heparinized plasma have been validated by the individual laboratory site where testing is performed. Testing on heparinized plasma is not approved by the FDA; however, such approval is not necessary. Potassium [Moles/Vol] 5.5 mmol/L High 3.5 - 5.3 mmol/L [facility] Sodium [Moles/Vol] 137 mmol/L 136 - 145 mmol/L [facility] Urea nitrogen [Mass/Vol] 53 mg/dL High 6 - 23 mg/dL [facility] Albumin BCP dye [Mass/Vol] 4.7 g/dL Normal 3.4-5.0 [facility] Comment on above: Performed By: #### 2 4362-6 #### MOHIT Car ([id number]) [facility] ([facility]) [id number] [place] [address] 36223 Anion gap [Moles/Vol] 14 mmol/L Normal 10-20 [facility] Comment on above: Performed By: #### 2 4362-6 #### MOHIT Car ([id number]) [facility] ([facility]) [address] [place] [address] 46154 Calcium [Mass/Vol] 9.8 mg/dL Normal 8.6-10.6 [facility] Comment on above: Performed By: #### 2 4362-6 #### MOHIT Car ([id number]) [facility] ([facility]) [id number] [place] [address] 04226 Chloride [Moles/Vol] 104 mmol/L Normal 98-107 [facility] [place] Comment on above: Performed By: #### 2 4362-6 #### MOHIT Car ([id number]) [facility] ([facility]) [id number] [place] [address] 63428 CO2 [Moles/Vol] 25 mmol/L Normal 21-32 [facility] Comment on above: Performed By: #### 2 4362-6 #### MOHIT Car ([id number]) [facility] ([facility]) [id number] [place] [address] 08729 Creatinine [Mass/Vol] 1.36 mg/dL High 0.50-1.05 [facility] Comment on above: Performed By: #### 2 4362-6 #### MOHIT Car ([id number]) [facility] ([facility]) [address] [place] [address] Glomerular filtration rate/1.73 sq M.predicted 42 mL/min/1.73m*2 Low >60 [facility] Comment on above: Result Comment: Calc ulations of estimated GFR are performed using the 2020 CKD-EPI Study Refit equation without the race variable for the IDMS-Traceable creatinine methods. https://jasn.asnjournals.org/content/early/ASN.87315 27188 Performed By: #### 2 4362-6 #### MOHIT Car ([id number]) [facility] ([facility]) [address] [place] [address] Glucose [Mass/Vol] 205 mg/dL High 74-99 [facility] Comment on above: Performed By: #### 2 4362-6 #### MOHIT Car ([id number]) [facility] ([facility]) [address] [place] [address] Phosphate [Mass/Vol] 4.1 mg/dL Normal 2.5-4.9 [facility] [place] Comment on above: Result Comment: The performance characteristics of phosphorus testing in heparinized plasma have been validated by the individual laboratory site where testing is performed. Testing on heparinized plasma is not approved by the FDA; however, such approval is not necessary. Performed By: #### 2 4362-6 #### MOHIT Car ([id number]) [facility] ([facility]) [address] [place] [address] Potassium [Moles/Vol] 5.5 mmol/L High 3.5-5.3 [facility] Comment on above: Performed By: #### 2 4362-6 #### MOHIT Car ([id number]) [facility] ([facility]) [address] [place] [address] Sodium [Moles/Vol] 137 mmol/L Normal 136-145 [facility] Comment on above: Performed By: #### 2 4362-6 #### MOHIT Car ([id number]) [facility] ([facility]) [address] [place] [address] Urea nitrogen [Mass/Vol] 53 mg/dL High 6-23 [facility] Comment on above: Performed By: #### 2 4362-6 #### MOHIT Car ([id number]) [facility] ([facility]) [address] [place] [address] VASC US PVR WITH EXERCISEon 06-15-2024 VASC US PVR WITH EXERCISE [facility] [address] [place], [place] [address] and Vascular Lab Report VASC US PVR WITHOUT EXERCISE Patient Name: MARIMAR PATEL Reading Physician: [id number] Christine Beyer MD Study Date: 06/15/2024 Ordering Physician: [id number] MICHEAL NOVA MRN/PID: [id number] Technologist: Miles Costello RVT Technologist 2: Date of /Age: 8 1955 / 68 years Gender: F Admission Status: Outpatient Location Performed: [facility] Diagnosis/ICD: Peripheral vascular disease, unspecified-I73.9 CPT Codes: 95623 Peripheral artery PVR (multi segmental pressure CRITICAL RESULT Critical Result: Severe PAD in left leg. Notification called to MICHEAL NOVA FACILITIES MAINTENANCE SUPERVISOR-TOOL GRINDER on 06/15/2024 at 10:50:00 AM by Miles Costello RVT. CONCLUSIONS: Right Lower PVR: There is evidence of moderate disease at the femoral popliteal level. Decreased digital perfusion noted. Monophasic flow is noted in the right popliteal artery, right dorsalis pedis artery and right posterior tibial artery. Multiphasic flow is noted in the right common femoral artery. Left Lower PVR: There is evidence of severe disease at the tibial level. Monophasic flow is noted in the left dorsalis pedis artery and left popliteal artery. Multiphasic flow is noted in the left common femoral artery. Was unable to insonate dorsalis pedis and posterior tibial arteries at the ankle. The pulse was found on the DPA at the mid calf. Unable to obtain TBI due to a flat PPG line. Imaging & Doppler Findings: RIGHT Lower PVR Pressures Ratios Right High Thigh 259 mmHg 1.51 Right Low Thigh 155 mmHg 0.91 Right Calf 123 mmHg 0.72 Right Posterior Tibial (Ankle) 89 mmHg 0.52 Right Dorsalis Pedis (Ankle) 65 mmHg 0.38 Right Digit (Great Toe) 73 mmHg 0.43 LEFT Lower PVR Pressures Ratios Left High Thigh 227 mmHg 1.33 Left Low Thigh 107 mmHg 0.63 Left Calf 56 mmHg 0.33 Left Posterior Tibial (Ankle) 0 mmHg 0.00 Left Dorsalis Pedis (Ankle) 0 mmHg 0.00 Left Digit (Great Toe) 0 mmHg 0.00 Right Left Brachial Pressure 171 mmHg 163 mmHg [id number] Christine Beyer MD Final [facility] US venous mapping BI [facility] 05-28-2024 US venous mapping BI [facility] [place] [address] [place] [address] Ultrasound Report Signed Patient: Marimar Patel MR#: [id number] 525 : 1955 Acct:[id number] Age/Sex: 68 / F ADM Date: 05/27/24 Loc: Room: Type: [facility] Attending Dr: Rodrigo Yousif MD Ordering Provider: Rodrigo Yousif MD Date of Service: 05/27/24 US/US venous mapping lower: Z01.818 - Encounter for other preprocedural examination Copies to: Rodrigo Yousif MD Bilateral lower extremity vein mapping examination Indication for study: Peripheral vascular occlusive disease PROCEDURE: B-mode imaging is used to interrogate the venous anatomy of both lower extremities. The right greater saphenous vein is potential usable. At 6 mm below the saphenofemoral junction and then is 3 mm or greater throughout the limb. There is a small segment in the proximal thigh where its 2 mm. The lesser saphenous vein is less than 2 mm proximally but then is 3 mm from the mid calf to the ankle. Left greater saphenous vein is present proximally but in the mid thigh becomes occluded. It appears to been previously harvested. The greater saphenous vein below the knee is small. The lesser saphenous vein is potential usable proximally at 3 mm but distally is less than 2 mm. US/US venous mapping BI lower IMPRESSION: Right greater saphenous vein is the best conduit in both lower extremities. Left greater saphenous vein is been partially harvested. Impression dictated by: Rodrigo Yousif M.D.05/28/2024 11:12 AM Dictation Location: [place] [address] Tech: Flakita Benito Transcribed By: JOSUE 05/28/24 1112 Dictated By: Rodrigo Yousif MD 05/28/24 1110 Signed By: 05/28/24 1112 Normal [facility] US venous mapping BI [facility] 05-28-2024 US venous mapping [facility] [place] [address] [place] [address] Ultrasound Report Signed Patient: Marimar Patel MR#: [id number] 525 : 1955 Acct:[id number] Age/Sex: 68 / F ADM Date: 05/27/24 Loc: Room: Type: [facility] Attending Dr: Rodrigo Yousif MD Ordering Provider: Rodrigo Yousif MD Date of Service: 05/27/24 US/US venous mapping [facility]: Z01.818 - Encounter for other preprocedural examination Copies to: Rodrigo Yousif MD Bilateral upper extremity vein mapping examination Indication for study: Peripheral artery disease with need for bypass PROCEDURE: B-mode imaging is used to interrogate the venous anatomy of both upper extremities. In the right arm the upper arm basilic vein is potential usable at 3 mm. The cephalic vein is poor from the antecubital space to the mid arm after which becomes 3 to 4 mm. In the left upper extremity the basilic vein is small in the forearm but in the upper arm again is 3 mm. Cephalic vein of the upper arm is a fairly good conduit and is 3 to 4 mm from the antecubital space to the shoulder. US/US venous mapping BI upper IMPRESSION: Limited length of conduit is present. In the patient's right arm the basilic vein is usable in the upper arm. In the left upper extremity the cephalic vein is usable from the antecubital space to the shoulder the basilic vein is potential usable as well in the upper arm. Impression dictated by: Rodrigo Yousif M.D.05/28/2024 11:13 AM Dictation Location: [facility] Tech: Elba Greco Transcribed By: JOSUE 05/28/24 1113 Dictated By: Rodrigo Yousif MD 05/28/24 1112 Signed By: 05/28/24 1113 Normal [facility] [facility] Creatinineon 05-19-2024 Creatinine Clr Calc Pharmacy 51.32 Normal [facility] Physician [facility] Comment on above: Result Comment: PERF ORMED BY: [place] [address] PATHOLOGIST INTERNET SOURCER FAHAD ASKEW M.D. Performed By: #### B UN, CREAT #### [address] GFR/1.73 sq M.predicted MDRD (S/P/Bld) [Vol rate/Area] mL/min/{1.73_m2} Normal [facility] Physician [facility] Comment on above: Performed By: #### B UN, CREAT #### [facility] [address] [place] [address] Creatinine [Mass/volume] in Serum or PlasmaOrdered By: Rodrigo Yousif on 05-19-2024 Creatinine [Mass/Vol] 0.98 mg/dL Normal 0.60-1.20 [facility] Comment on above: Performed By: #### B UN, CREAT #### [facility] [address] [place] [address] No Panel InformationOrdered By: Rodrigo Yousif on 05-19-2024 Estimated GFR (CKD-EPI) > 60.0 mL/Min [facility] Creatinine Clearance (Chem 51.32 [facility] Urea nitrogen [Mass/volume] in Serum or PlasmaOrdered By: Rodrigo Yousif on 05-19-2024 Urea nitrogen [Mass/Vol] 40 mg/dL High 06-03 [facility] Comment on above: Performed By: #### B UN, CREAT #### [facility] [address] [place] [address] [facility] US arterial pvr rest Terry US arterial pvr rest LE [facility] [address] [place] [address] [place] [address] Ultrasound Report Signed Patient: Marimar Patel MR#: [id number] : 1955 Acct:[id number] Age/Sex: 68 / F ADM Date: 05/17/24 Loc: Room: [facility] Attending Dr: Alexis Gilmore DPM Ordering Provider: Alexis Gilmore DPM Date of Service: 05/17/24 US/US arterial pvr rest LE: E08.42,I73.9,I96 Copies to: Alexis Gilmore DPM LOWER EXTREMITY SEGMENTAL ARTERIAL DOPSCAN (PVR) INDICATION: Left foot pain with nonhealing wound PROCEDURE: Right arm blood pressure is 182 , left is 178 . Pressures throughout the right leg are CNO at the high thigh, at the 161 low thigh, 170 at the calf, 125 at the ankle using the posterior tibial artery, and 108 at the ankle using the dorsalis pedis artery with ankle- brachial index of 0.69 0.59 . Pressures throughout the left leg are 190 at the high thigh, at the 104 low thigh, 61 at the calf and 41 at the ankle using the posterior tibial artery, and 54 at the ankle using the dorsalis pedis artery with ankle-brachial index of 0.23 0.30 . Wave forms by plethysmography are blunted bilaterally more particularly on the left US/US arterial pvr rest LE IMPRESSION: Moderately severe peripheral vascular occlusive disease of the right lower extremity at rest. Severe peripheral vascular occlusive disease of the left lower extremity at rest. There is been a severe change in the patient's left ankle-brachial index from the prior study dated February 2023. Vascular referral is warranted. Impression dictated by: Rodrigo Yousif M.D.05/18/2024 10:43 AM Dictation Location: [id number] Tech: Christal Cardoza Transcribed By: JOSUE 05/18/24 1043 Dictated By: Rodrigo Yousif MD 05/18/24 1041 Signed By: 05/18/24 1043 [facility] Office Visiton 05-10-2024 Follow-up visit [id number] Pancho Patel ie L 1955 F Date Provider Department Center 05/10/2024 PANCHITO BALTAZAR Family History Problem Relation Age of Onset Diabetes Mother Cancer Mother Heart disease Father Alcohol abuse Brother Diabetes Brother Family Status - Relation Status Age at Mother Father Brother Level of Service:60832 MS OFFICE/OUTPATIENT ESTABLISHED MOD MDM 30 MIN [facility] 36on 03-19-2024 36 Lm to return my call [facility] 36on 03-17-2024 36 Pt already taking 40 mg daily sent this to [facility] 36 Regarding echo performed on 03/11/2024: MD Maria Antonia Pisano MA Please tell her the echo showed normal function of the TAVR valve with evidence of extra fluid in the body, I want her to add furosemide 20 mg daily. LM for patient to return my call. Also LM on mobile number. [facility] Office Visiton 02-13-2024 Follow-up visit [id number] Pancho Patel ie L 1955 F Date Provider Department Center 02/13/2024 PANCHITO BALTAZAR Family History Problem Relation Age of Onset Diabetes Mother Cancer Mother Heart disease Father Alcohol abuse Brother Diabetes Brother Family Status - Relation Status Age at Mother Father Brother Level of Service:84076 MS OFFICE/OUTPATIENT ESTABLISHED MOD MDM 30 MIN Reason for Visit and Comments: Follow-up [182678] - 1.5 year follow up Recently in ER [facility] 36on 01-01-2024 36 Needs appt [facility] Follow-Upon 12-19-2023 Follow-Up [id number] Pancho Patel ie L 1955 F Date Provider Department Center 12/19/2023 ANABELLE CLAUDIO HVCVASENDO [facility] Family History Problem Relation Age of Onset Diabetes Mother Cancer Mother Heart disease Father Alcohol abuse Brother Diabetes Brother Family Status - Relation Status Age at Mother Father Brother Level of Service:89063 MS OFFICE/OUTPATIENT ESTABLISHED LOW MDM 20 MIN Reason for Visit and Comments: Hospital Follow-up [832] - 12/04/23 impatient PAD Normal [facility] 30on 12-05-2023 30 Daily Case [...] and under toe wounds 12/05/23 0236 Normal [facility] BASIC METABOLIC PANELon 11-11 Anion gap [Moles/Vol] 7 mmol/L Normal 7-20 [facility] Comment on above: Performed By: #### L [id number] #### [facility] ([facility]) [address] [place] [address] Calcium [Mass/Vol] 8.6 mg/dL Normal 8.6-10.3 [facility] Comment on above: Performed By: #### L [id number] #### [facility] ([facility]) [address] [place] [address] Chloride [Moles/Vol] 105 mmol/L Normal 98-107 [facility] Comment on above: Performed By: #### L [id number] #### [facility] ([facility]) [address] [place] [address] CO2 [Moles/Vol] 27 mmol/L Normal 21-31 [facility] Comment on above: Performed By: #### L [id number] #### [facility] ([facility]) [address] [place] [address] Creatinine [Mass/Vol] 0.97 mg/dL Normal 0.60-1.20 [facility] Comment on above: Performed By: #### L [id number] #### [facility] ([facility]) [address] [place] [address] GLOMERULAR FILTRATION RATE ML/MIN/1.73 SQ M.PREDICTED 63.3 mL/min/1.73m*2 Normal >60.0 [facility] Comment on above: Result Comment: The [facility]???s estimated glomerular filtration rate (eGFR) [...] individuals. Performed By: #### L [id number] #### [facility] ([facility]) [address] [place] [address] Glucose [Mass/Vol] 192 mg/dL High 70-100 [facility] Comment on above: Performed By: #### L [id number] #### [facility] ([facility]) [address] [place] [address] Potassium [Moles/Vol] 4.1 mmol/L Normal 3.5-5.1 [facility] Comment on above: Performed By: #### L [id number] #### [facility] ([facility] [address] [place] [address] Sodium [Moles/Vol] 135 mmol/L Low 136-145 [facility] Comment on above: Performed By: #### L [id number] #### [facility] ([facility]) [address] [place] [address] Urea nitrogen [Mass/Vol] 29 mg/dL High 7-25 [facility] Comment on above: Performed By: #### L [id number] #### [facility] ([facility]) [address] [place] [address] UREA NITROGEN/CREATININE (MASS RATIO) IN SER/PLAS 29.9 Normal [facility] Comment on above: Performed By: #### L [id number] #### [facility] ([facility]) [address] [place] [address] CBCon 12-05-2023 Erythrocyte distribution width (RBC) [Ratio] 13.5 % Normal 11.5-15.0 [facility] Comment on above: Performed By: #### L [id number] #### [facility] ([facility]) [address] [place] [address] ERYTHROCYTE MEAN CORPUSCULAR HEMOGLOBIN CONCENTRATION (G/DL) BY AUTOMATED 32.3 g/dL Normal 32.0-35.0 [facility] Comment on above: Performed By: #### L [id number] #### [facility] ([facility]) [address] [place] [address] Hematocrit (Bld) [Volume fraction] 30.0 % Low 36.0-48.0 [facility] Comment on above: Performed By: #### L [id number] #### [facility] ([facility]) [address] [place] [address] Hemoglobin (Bld) [Mass/Vol] 9.7 g/dL Low 12.0-15.0 [facility] Comment on above: Performed By: #### L [id number] #### [facility] ([facility]) [address] [place] [address] MCH (RBC) [Entitic mass] 28.6 pg Normal 27.0-33.0 [facility] Comment on above: Performed By: #### L [id number] #### [facility] ([facility]) [address] [place] [address] MCV (RBC) [Entitic vol] 88.5 fL Normal 82.0-98.0 [facility] Comment on above: Performed By: #### L [id number] #### [facility] ([facility]) [address] [place] [address] PLATELETS (10*3/UL) IN BLOOD AUTOMATED COUNT 182 10*3/uL Normal 150-400 [facility] Comment on above: Performed By: #### L [id number] #### [facility] ([facility]) [address] [place] [address] RBC (Bld) [#/Vol] 3.39 10*6/uL Low 3.80-5.00 [facility] Comment on above: Performed By: #### L [id number] #### [facility] ([facility]) [address] [place] [address] WBC (Bld) [#/Vol] 8.35 10*3/uL Normal 4.00-10.60 [facility] Comment on above: Performed By: #### L [id number] #### [facility] ([facility]) [address] [place] [address] NURSNOTEon 12-05-2023 NURSNOTE Patient IV removed a nd wheeled out to husbands truck at the main enterance Normal [facility] POCT GLUCOSE METER UNSOLICIT ED RESULTSon 12-05-2023 Glucose [Mass/Vol] 172 mg/dL High 70-105 [facility] Comment on above: Order Comment: Waive d Testing in the ED is performed under the ED CLIA certificate #[id number]. Result Comment: santiago rbo Performed By: #### L [id number] #### [facility] ([facility]) [address] [place] [address] Glucose [Mass/Vol] 194 mg/dL High 70-105 [facility] Comment on above: Order Comment: Waive d Testing in the ED is performed under the ED CLIA certificate #[id number]. Result Comment: kret tin Performed By: #### L [id number] #### [facility] ([facility]) [address] [facility] [place] [address] APTTon 12-04-2023 ACTIVATED PARTIAL THROMBOPLASTIN TIME IN PPP BY COAGULATION ASSAY 152.0 Seconds Critically high 25.0-35.0 [facility] Comment on above: Result Comment: Clin ical significance of the APTT is questionable in the presence of heparin. Performed By: #### L [id number] #### [facility] ([facility]) [address] [place] [address] ACTIVATED PARTIAL THROMBOPLASTIN TIME IN PPP BY COAGULATION ASSAY 140.0 Seconds Critically high 25.0-35.0 [facility] Comment on above: Result Comment: Clin ical significance of the APTT is questionable in the presence of heparin. Performed By: #### L [id number] #### [facility] ([facility]) [address] [place] [address] BASIC METABOLIC PANELon 11-11 Anion gap [Moles/Vol] 10 mmol/L Normal 7-20 [facility] Comment on above: Performed By: #### L [id number] #### [facility] ([facility]) [address] [place] [address] Calcium [Mass/Vol] 9.6 mg/dL Normal 8.6-10.3 [facility] Comment on above: Performed By: #### L [id number] #### [facility] ([facility]) [address] [place] [address] Chloride [Moles/Vol] 101 mmol/L Normal 98-107 [facility] Comment on above: Performed By: #### L [id number] #### [facility] ([facility]) [address] [place] [address] CO2 [Moles/Vol] 24 mmol/L Normal 21-31 [facility] Comment on above: Performed By: #### L [id number] #### [facility] ([facility]) [address] [place] [address] Creatinine [Mass/Vol] 1.32 mg/dL High 0.60-1.20 [facility] Comment on above: Performed By: #### L [id number] #### [facility] ([facility]) [address] [place] [address] GLOMERULAR FILTRATION RATE ML/MIN/1.73 SQ M.PREDICTED 43.7 mL/min/1.73m*2 Low >60.0 [facility] Comment on above: Result Comment: The [facility]???s estimated glomerular filtration rate (eGFR) [...] group of individuals. Performed By: #### L [id number] #### [facility] ([facility]) [address] [place] [address] Glucose [Mass/Vol] 268 mg/dL High 70-100 [facility] Comment on above: Performed By: #### L [id number] #### [facility] ([facility]) [address] [place] [address] Potassium [Moles/Vol] 4.5 mmol/L Normal 3.5-5.1 [facility] Comment on above: Performed By: #### L [id number] #### [facility] ([facility]) [address] [place] [address] Sodium [Moles/Vol] 130 mmol/L Low 136-145 [facility] Comment on above: Performed By: #### L [id number] #### [facility] ([facility]) [address] [place] [address] Urea nitrogen [Mass/Vol] 42 mg/dL High 06-03 [facility] Comment on above: Performed By: #### L [id number] #### [facility] ([facility]) [address] [place] [address] UREA NITROGEN/CREATININE (MASS RATIO) IN SER/PLAS 31.8 Normal [facility] Comment on above: Performed By: #### L [id number] #### [facility] ([facility]) [address] [place] [address] CBC WITH AUTO DIFFERENTIALon 12-04-2023 Basophils (Bld) [#/Vol] 0.04 10*3/uL Normal 0.00-0.20 [facility] Comment on above: Performed By: #### L [id number] #### [facility] ([facility]) [address] [place] [address] Basophils/100 WBC (Bld) 0.4 % Normal 0.0-1.0 [facility] Comment on above: Performed By: #### L [id number] #### [facility] ([facility]) [address] [place] [address] Eosinophils (Bld) [#/Vol] 0.18 10*3/uL Normal 0.00-0.50 [facility] Comment on above: Performed By: #### L [id number] #### [facility] ([facility]) [address] [place] [address] Eosinophils/100 WBC (Bld) 1.9 % Normal 0.0-6.0 [facility] Comment on above: Performed By: #### L [id number] #### [facility] ([facility]) [address] [place] [address] Erythrocyte distribution width (RBC) [Ratio] 13.4 % Normal 11.5-15.0 [facility] Comment on above: Performed By: #### L [id number] #### [facility] ([facility]) [address] [place] [address] ERYTHROCYTE MEAN CORPUSCULAR HEMOGLOBIN CONCENTRATION (G/DL) BY AUTOMATED 33.3 g/dL Normal 32.0-35.0 [facility] Comment on above: Performed By: #### L [id number] #### [facility] ([facility]) [address] [place] [address] Hematocrit (Bld) [Volume fraction] 30.6 % Low 36.0-48.0 [facility] Comment on above: Performed By: #### L [id number] #### [facility] ([facility]) [address] [place] [address] Hemoglobin (Bld) [Mass/Vol] 10.2 g/dL Low 12.0-15.0 [facility] Comment on above: Performed By: #### L [id number] #### [facility] ([facility]) [address] [place] [address] Immature granulocytes (Bld) [#/Vol] 0.02 10*3/uL Normal 0.00-0.20 [facility] Comment on above: Performed By: #### L [id number] #### [facility] ([facility]) [address] [place] [address] Immature granulocytes/100 WBC (Bld) 0.2 % Normal 0.0-1.0 [facility] Comment on above: Performed By: #### L [id number] #### [facility] ([facility]) [address] [place] [address] Lymphocytes (Bld) [#/Vol] 3.07 10*3/uL Normal 1.20-4.00 [facility] Comment on above: Performed By: #### L [id number] #### [facility] ([facility]) [address] [place] [address] Lymphocytes/100 WBC (Bld) 32.0 % Normal 20.0-45.0 [facility] Comment on above: Performed By: #### L [id number] #### [facility] ([facility]) [address] [place] [address] MCH (RBC) [Entitic mass] 29.1 pg Normal 27.0-33.0 [facility] Comment on above: Performed By: #### L [id number] #### [facility] ([facility]) [address] [place] [address] MCV (RBC) [Entitic vol] 87.2 fL Normal 82.0-98.0 [facility] Comment on above: Performed By: #### L [id number] #### [facility] ([facility]) [address] [place] [address] Monocytes (Bld) [#/Vol] 0.96 10*3/uL Normal 0.10-1.00 [facility] Comment on above: Performed By: #### L [id number] #### [facility] ([facility]) [address] [place] [address] Monocytes/100 WBC (Bld) 10.0 % Normal 5.0-12.0 [facility] Comment on above: Performed By: #### L [id number] #### [facility] ([facility]) [address] [place] [address] Neutrophils (Bld) [#/Vol] 5.33 10*3/uL Normal 1.60-7.60 [facility] Comment on above: Performed By: #### L [id number] #### [facility] ([facility]) [address] [place] [address] Neutrophils/100 WBC (Bld) 55.5 % Normal 40.0-72.0 [facility] Comment on above: Performed By: #### L [id number] #### [facility] ([facility]) [address] [place] [address] NRBC (PER 100 WBCS) BY AUTOMATED COUNT 0.0 % Normal 0 [facility] Comment on above: Performed By: #### L [id number] #### [facility] ([facility]) [address] [facility] [place] [address] PLATELETS (10*3/UL) IN BLOOD AUTOMATED COUNT 207 10*3/uL Normal 150-400 [facility] Comment on above: Performed By: #### L [id number] #### [facility] ([facility]) [address] [place] [address] RBC (Bld) [#/Vol] 3.51 10*6/uL Low 3.80-5.00 [facility] Comment on above: Performed By: #### L [id number] #### [facility] ([facility]) [address] [place] [address] WBC (Bld) [#/Vol] 9.60 10*3/uL Normal 4.00-10.60 [facility] Comment on above: Performed By: #### L [id number] #### [facility] ([facility]) [address] [facility] [place] [address] CONSULTon 12-04-2023 CONSULT -- Attestation signed by Binh Padilla MD at 12/04/2023 1:00 PM Pt with severe pain left leg Has no pulses History of PVD Plan for angiogram and intervention Reason For Consult left leg critical limb ischemia Referring Provider: [facility] emergency department History Of Present Illness [...] emergency department after being referred by 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 It is worse at night. She also reports significant pain in the toes. Past Medical History She has a past medical history of A-fib ([facility]), Aortic valve stenosis, Coronary artery disease, Diabetes mellitus ([facility]), Hypertension, and Peripheral vascular disease ([facility]). Surgical History She has a past [...] 274 (H) (more content not included)... Normal [facility] CONSULT -- Attestation signed by [...] has a past medical history of A-fib ([facility]), Aortic valve stenosis, Coronary artery disease, Diabetes mellitus ([facility]), Hypertension, and Peripheral vascular disease ([facility]). Surgical History She has a past [...] Lab Results (more content not included)... Normal [facility] OPNOTEon 12-04-2023 OPNOTE LEFT LOWER EXTREMITY ANGIOGRAM (L), AORTOGRAM, LEFT LOWER EXTREMITY JETSTREAM AND ATHERECTOMY/THROMBECOM Y, LEFT LOWER EXTREMITY DRUG COATED BALLOON ANGIOPLASTY OF SFA AND POLITEAL ARTERIES, LEFT LOWER EXTREMITY DISTAL SFA AND POPLITEAL COVERED STENTING Operative Note Date: 12/04/2023 [facility], : 1955, Diagnosis Pre-op Diagnosis * PAD (peripheral artery disease) (CMS/HCC) [I73.9] Post-op Diagnosis * PAD (peripheral artery disease) (CMS/[facility]) [I73.9] Procedures LEFT LOWER EXTREMITY ANGIOGRAM 00578 - MS OFFICE/OUTPT VISIT,PROCEDURE ONLY AORTOGRAM 66878 - MS OFFICE/OUTPT VISIT,PROCEDURE ONLY LEFT LOWER EXTREMITY JETSTREAM AND ATHERECTOMY/THROMBECOM Y 80293 - MS OFFICE/OUTPT VISIT,PROCEDURE ONLY LEFT LOWER EXTREMITY DRUG COATED BALLOON ANGIOPLASTY OF SFA AND POLITEAL ARTERIES 75422 - MS OFFICE/OUTPT VISIT,PROCEDURE ONLY LEFT LOWER EXTREMITY DISTAL SFA AND POPLITEAL COVERED STENTING 50175 - MS OFFICE/OUTPT VISIT,PROCEDURE ONLY Surgeons * Binh Padilla - Primary Procedure Summary Anesthesia: General ASA: III Estimated Blood Loss: 20 mL Total IV Fluids: mL Drains: * None in log * Implants Type Name Action Serial No. Stent STENT,[id number] - [id number] - [id number] Implanted [id number] Staff: Water Use Inspector: Fercho Farrell RN; Tonja Kelly; Olvin Ley RN Scrub Person: Anabelle Mcmullen Assist: Jaime Parekh CSA Indications: Marimar Patel is an 68 y.o. female who is having surgery for PAD (peripheral artery disease) ([facility] [facility] [I73.9]. Patient presented with wrist pain and [...] sheath and 6 Bel[place] sheath were inserted. [place] flush catheter was placed in the abdominal [...] was persistent because of this inserted a Hunter Viabahn 6 x 10 cm cover the stent followed b (more content not included)... Normal [facility] POCT GLUCOSE METER UNSOLICIT ED RESULTSon 12-04-2023 Glucose [Mass/Vol] 173 mg/dL High 70-105 [facility] Comment on above: Order Comment: Waive d Testing in the ED is performed under the ED CLIA certificate #[id number]. Result Comment: sbel air Performed By: #### L [id number] #### [facility] ([employer]) [address] [place] [address] Glucose [Mass/Vol] 176 mg/dL High 70-105 [facility] Comment on above: Order Comment: Waive d Testing in the ED is performed under the ED CLIA certificate #[id number]. Result Comment: czyd orc Performed By: #### L [id number] #### [facility] ([employer]) [address] [place] [address] Glucose [Mass/Vol] 284 mg/dL High 70-105 [facility] Comment on above: Order Comment: Waive d Testing in the ED is performed under the ED CLIA certificate #[id number]. Result Comment: spar [email or web address] Performed By: #### L [id number] #### [facility] ([employer]) [address] [place] [address] TROPONIN Ion 12-04-2023 Troponin I.cardiac [Mass/Vol] 0.02 ng/mL Normal 0.00-0.04 [facility] Comment on above: Performed By: #### L [id number] #### [facility] ([employer]) [address] [place] [address] APTTon 12-03-2023 ACTIVATED PARTIAL THROMBOPLASTIN TIME IN PPP BY COAGULATION ASSAY 35.8 Seconds High 25.0-35.0 [facility] Comment on above: Result Comment: Clin ical significance of the APTT is questionable in the presence of heparin. Performed By: #### L [id number] ####[facility] ([facility])[address] [place] [address] BASIC METABOLIC PANELon 11-11 Anion gap [Moles/Vol] 13 mmol/L Normal 7-20 [facility] Comment on above: Performed By: #### L [id number] #### [facility] ([facility]) [address] [place] [address] Calcium [Mass/Vol] 11.5 mg/dL High 8.6-10.3 [facility] Comment on above: Performed By: #### L [id number] #### [facility] ([facility]) [address] [place] [address] Chloride [Moles/Vol] 93 mmol/L Low 98-107 [facility] Comment on above: Performed By: #### L [id number] #### [facility] ([facility]) [address] [place] [address] CO2 [Moles/Vol] 27 mmol/L Normal 21-31 [facility] Comment on above: Performed By: #### L [id number] #### [facility] ([facility]) [address] [place] [address] Creatinine [Mass/Vol] 1.68 mg/dL High 0.60-1.20 [facility] Comment on above: Performed By: #### L [id number] #### [facility] ([facility]) [address] [place] [address] GLOMERULAR FILTRATION RATE ML/MIN/1.73 SQ M.PREDICTED 32.7 mL/min/1.73m*2 Low >60.0 [facility] Comment on above: Result Comment: The [facility]???s estimated glomerular filtration rate (eGFR) [...] individuals. Performed By: #### L [id number] #### [facility] ([facility]) [address] [place] [address] Glucose [Mass/Vol] 274 mg/dL High 70-100 [facility] Comment on above: Performed By: #### L [id number] #### [facility] ([facility]) [address] [place] [address] Potassium [Moles/Vol] 5.1 mmol/L Normal 3.5-5.1 [facility] Comment on above: Performed By: #### L [id number] #### [facility] ([facility]) [address] [place] [address] Sodium [Moles/Vol] 128 mmol/L Low 136-145 [facility] Comment on above: Performed By: #### L [id number] #### [facility] ([facility]) [address] [place] [address] Urea nitrogen [Mass/Vol] 55 mg/dL High 7-25 [facility] Comment on above: Performed By: #### L [id number] #### [facility] ([facility]) [address] [place] [address] UREA NITROGEN/CREATININE (MASS RATIO) IN SER/PLAS 32.7 Normal [facility] Comment on above: Performed By: #### L [id number] #### [facility] ([facility]) [address] [place] [address] CBC WITH AUTO DIFFERENTIALon 12-03-2023 Basophils (Bld) [#/Vol] 0.05 10*3/uL Normal 0.00-0.20 [facility] Comment on above: Performed By: #### L [id number] #### [facility] ([facility]) [address] [place] [address] Basophils/100 WBC (Bld) 0.5 % Normal 0.0-1.0 [facility] Comment on above: Performed By: #### L [id number] #### [facility] ([employer]) [address] [place] [address] Eosinophils (Bld) [#/Vol] 0.21 10*3/uL Normal 0.00-0.50 [facility] Comment on above: Performed By: #### L [id number] #### [facility] ([facility]) [address] [place] [address] Eosinophils/100 WBC (Bld) 1.9 % Normal 0.0-6.0 [facility] Comment on above: Performed By: #### L [id number] #### [facility] ([facility]) [address] [place] [address] Erythrocyte distribution width (RBC) [Ratio] 13.2 % Normal 11.5-15.0 [facility] Comment on above: Performed By: #### L [id number] #### [facility] ([facility]) [address] [place] [address] ERYTHROCYTE MEAN CORPUSCULAR HEMOGLOBIN CONCENTRATION (G/DL) BY AUTOMATED 33.5 g/dL Normal 32.0-35.0 [facility] Comment on above: Performed By: #### L [id number] #### [facility] ([facility]) [address] [place] [address] Hematocrit (Bld) [Volume fraction] 34.6 % Low 36.0-48.0 [facility] Comment on above: Performed By: #### L [id number] #### [facility] ([facility]) [address] [place] [address] Hemoglobin (Bld) [Mass/Vol] 11.6 g/dL Low 12.0-15.0 [facility] Comment on above: Performed By: #### L [id number] #### [facility] ([facility]) [address] [place] [address] Immature granulocytes (Bld) [#/Vol] 0.03 10*3/uL Normal 0.00-0.20 [facility] Comment on above: Performed By: #### L [id number] #### [facility] ([facility]) [address] [place] [place] [address] Immature granulocytes/100 WBC (Bld) 0.3 % Normal 0.0-1.0 [facility] Comment on above: Performed By: #### L [id number] #### [facility] ([facility]) [address] [place] [address] Lymphocytes (Bld) [#/Vol] 3.27 10*3/uL Normal 1.20-4.00 [facility] Comment on above: Performed By: #### L [id number] #### [facility] ([facility]) [address] [place] [address] Lymphocytes/100 WBC (Bld) 30.0 % Normal 20.0-45.0 [facility] Comment on above: Performed By: #### L [id number] #### [facility] ([facility]) [address] [place] [address] MCH (RBC) [Entitic mass] 28.3 pg Normal 27.0-33.0 [facility] Comment on above: Performed By: #### L [id number] #### [facility] ([facility]) [address] [place] [address] MCV (RBC) [Entitic vol] 84.4 fL Normal 82.0-98.0 [facility] Comment on above: Performed By: #### L [id number] #### [facility] ([facility]) [address] [place] [address] Monocytes (Bld) [#/Vol] 1.05 10*3/uL High 0.10-1.00 [facility] Comment on above: Performed By: #### L [id number] #### [facility] ([facility]) [address] [place] [address] Monocytes/100 WBC (Bld) 9.6 % Normal 5.0-12.0 [facility] Comment on above: Performed By: #### L [id number] #### [facility] ([facility]) [address] [place] [address] Neutrophils (Bld) [#/Vol] 6.28 10*3/uL Normal 1.60-7.60 [facility] Comment on above: Performed By: #### L [id number] #### [facility] ([facility]) [address] [place] [address] Neutrophils/100 WBC (Bld) 57.7 % Normal 40.0-72.0 [facility] Comment on above: Performed By: #### L [id number] #### [facility] ([facility]) [address] [place] [address] NRBC (PER 100 WBCS) BY AUTOMATED COUNT 0.0 % Normal 0 [facility] Comment on above: Performed By: #### L [id number] #### [facility] ([facility]) [address] [place] [address] PLATELETS (10*3/UL) IN BLOOD AUTOMATED COUNT 237 10*3/uL Normal 150-400 [facility] Comment on above: Performed By: #### L [id number] #### [facility] ([facility]) [address] [place] [address] RBC (Bld) [#/Vol] 4.10 10*6/uL Normal 3.80-5.00 [facility] Comment on above: Performed By: #### L [id number] #### [facility] ([facility]) [address] [place] [address] WBC (Bld) [#/Vol] 10.89 10*3/uL High 4.00-10.60 [facility] Comment on above: Performed By: #### L [id number] #### [facility] ([facility]) [address] [place] [address] CTA AORTA AND BILATERAL ILIO FEMORAL RUNOFF [...] ankle. Electronically signed: Gayle Quintanilla. [facility] EDNURSon 12-03-2023 EDNURS Mode of arrival (squ ad #, walk in, police, etc): Walk in Chief complaint(s): Foot wound, leg/calf pain Arrival Note (brief scenario, treatment WARDROBE COORDINATOR, etc): Patient states she had testing/labs done for her leg sores/pain. Patient states doctor set it up for her to get angioplasty. [facility] EDPROVon 12-03-2023 EDPROV HPI Chief Complaint [...] Attestion Mark Gaines NP 12/03/23 1649 Normal [facility] HEMOGLOBIN A1Con 12-03-2023 Glucose [Mass/Vol] 252 mg/dL Normal [facility] Comment on above: Performed By: #### L [id number] #### [facility] ([facility]) [address] [place] [address] HbA1c (Bld) [Mass fraction] 10.4 % High 4.0-6.0 [facility] Comment on above: Performed By: #### L [id number] #### [facility] ([facility]) [address] [place] [address] HPon 12-03-2023 HP History Of Present Illness [...] 10*3/uL 6.28 (more content not included)... Normal [facility] POCT GLUCOSE METER UNSOLICIT ED RESULTSon 12-03-2023 Glucose [Mass/Vol] 337 mg/dL High 70-105 [facility] Comment on above: Order Comment: Waive d Testing in the ED is performed under the ED CLIA certificate #[id number]. Result Comment: ton [email or web address] Performed By: #### L [id number] #### [facility] ([employer]) [address] [place] [address] PROTIME-INRon 12-03-2023 INR IN PPP BY COAGULATION ASSAY 1.24 High 0.90-1.10 [facility] Comment on above: Result [...] RANGE. CHEST 1995;108:[id number]. Performed By: #### L [id number] ####[facility] ([facility])[address] [place] [address] PROTHROMBIN TIME (PT) IN PPP BY COAGULATION ASSAY 15.7 Seconds High 12.3-14.8 [facility] Comment on above: Performed By: #### L [id number] ####[facility] ([facility])[address] [place] [address] Telephoneon 10-29-2023 Telephone [phone] Pancho Patel 1955 F Date Provider Department Center 10/29/2023 [id number] VILLANUEVA [facility] Family History Problem Relation Age of Onset Diabetes Mother Cancer Mother Heart disease Father Alcohol abuse Brother Diabetes Brother Family Status - Relation Status Age at Mother Father Brother Normal [facility] CT STROKE HEAD WOon [...] by: CHANTAL KILLIAN Date: 2023-01-31 12:44 Normal [facility] Creatinine and Glomerular fi ltration rate.predicted panel (S/P/Bld)Ordered By: Geo Mathew on 01-13-2023 Creatinine [Mass/Vol] 1.75 mg/dL 0.44-1.03 [facility] Estimated glomerular filtrat ion rate (GFR) non- AmericanOrdered By: Geo Mathew on 01-13-2023 GFR/1.73 sq M.predicted among non-blacks MDRD (S/P/Bld) [Vol rate/Area] 29 mL/Min [facility] No Panel InformationOrdered By: Geo Mathew on 01-13-2023 Estimated GFR () 35 mL/Min [facility] Comment on above: GFR estimated refere nce range: According to KDOQI guidelines, <60 ml/min/1.73m2 is sufficient to diagnose a patient with chronic kidney disease. Pharmacy Creatinine Clearance (Chem 27.91 [facility] Urea nitrogen [Mass/volume] in Serum or PlasmaOrdered By: Geo Mathew on 01-13-2023 Urea nitrogen [Mass/Vol] 48 mg/dL 08-02 [facility] ALBUMINon 08-17-2022 Albumin [Mass/Vol] 3.5 g/dL Normal 3.4-5.0 [facility] Comment on above: Performed By: #### B MP, PREALB, ALB ####[facility] [id number] [place], [place] [address]HrDr. Sruthi Arechiga CBC AUTO DIFFon 08-17-2022 BASO # 0.0 103/ul Normal 0.0-0.1 [facility] Comment on above: Performed By: #### C BC #### [facility] [address] [address] [address] Sruthi Arechiga Basophils/100 WBC (Bld) 0.5 % Normal 0.2-2.0 [facility] Comment on above: Performed By: #### C BC #### [facility] [address] [place] [address] Dr. Sruthi Arechiga EO # 0.3 103/ul Normal 0.0-0.7 [facility] Comment on above: Performed By: #### C BC #### [facility] [address] [address] [address] Sruthi Arechiga Eosinophils/100 WBC (Bld) 3.6 % Normal 0.9-7.0 [facility] Comment on above: Performed By: #### C BC #### [facility] [address] [address] [address] Sruthi Arechiga Erythrocyte distribution width (RBC) [Ratio] 14.5 % Normal 11.0-15.0 [facility] Comment on above: Performed By: #### C BC #### [facility] [address] [address] [address] Sruthi Arechiga Hematocrit (Bld) [Volume fraction] 37.7 % Normal 36.0-48.0 [facility] Comment on above: Performed By: #### C BC #### [facility] [address] [address] [address] Sruthi Arechiga Hemoglobin (Bld) [Mass/Vol] 11.9 g/dL Critically low 12.0-16.0 [facility] Comment on above: Performed By: #### C BC #### [facility] [address] [place] [address] Dr. Sruthi Arechiga IG # 0.02 10e3/ul Normal 0.00-0.03 [facility] Comment on above: Performed By: #### C BC #### [facility] [address] [place] [address] Dr. Sruthi Arechiga IG % 0.2 % Normal 0.0-0.5 [facility] Comment on above: Performed By: #### C BC #### [facility] [address] [place] [address] Dr. Sruthi Arechiga LYMPH # 2.7 103/ul Normal 1.2-3.8 [facility] Comment on above: Performed By: #### C BC #### [facility] [address] [place] [address] Dr. Sruthi Arechiga Lymphocytes/100 WBC (Bld) 32.2 % Normal 20.5-60.0 [facility] Comment on above: Performed By: #### C BC #### [facility] [address] [place] [address] Dr. Sruthi Arechiga MANUAL DIFF REQ NO Normal [facility] Comment on above: Performed By: #### C BC #### [facility] [address] [place] [address] Dr. Sruthi Arechiga MCH (RBC) [Entitic mass] 26.8 pg Normal 26.7-34.0 [facility] Comment on above: Performed By: #### C BC #### [facility] [address] [place] [address] Dr. Sruthi Arechiga MCHC (RBC) [Mass/Vol] 31.6 g/dL Normal 29.9-35.2 [facility] Comment on above: Performed By: #### C BC #### [facility] [address] [place] [address] Dr. Sruthi Arechiga MCV (RBC) [Entitic vol] 84.9 fL Normal 81.0-99.0 [facility] Comment on above: Performed By: #### C BC #### [facility] [address] [address] [address] Sruthi Arechiga MONO # 0.8 103/ul Normal 0.3-0.8 [facility] Comment on above: Performed By: #### C BC #### [facility] [address] [place] [address] Dr. Sruthi Arechiga Monocytes/100 WBC (Bld) 9.6 % Normal 1.7-12.0 [facility] Comment on above: Performed By: #### C BC #### [facility] [address] [place] [address] Dr. Sruthi Arechiga NEUT # 4.5 103/ul Normal 1.4-6.5 [facility] Comment on above: Performed By: #### C BC #### [facility] [address] [place] [address] Dr. Sruthi Arechiga Neutrophils/100 WBC (Bld) 53.9 % Normal 43.0-75.0 [facility] Comment on above: Performed By: #### C BC #### [facility] [address] [place] [address] Dr. Sruthi Arechiga Platelet mean volume (Bld) [Entitic vol] 10.8 fL Normal 9.5-13.5 [facility] Comment on above: Performed By: #### C BC #### [facility] [address] [place] [address] Dr. Sruthi Arechiga PLT 246 103/ul Normal 150-450 [facility] Comment on above: Performed By: #### C BC #### [facility] [address] [place] [address] Dr. Sruthi Arechiga RBC 4.44 106/ul Normal 4.20-5.40 [facility] Comment on above: Performed By: #### C BC #### [facility] [address] [place] [address] Dr. Sruthi Arechiga WBC 8.4 103/ul Normal 4.0-11.0 [facility] Comment on above: Performed By: #### C BC #### [facility] [address] [place] [address] Dr. Sruthi Arechiga Covid-19 PCR (CVDTB)on SARS-CoV-2 (COVID-19) RNA KOLE+probe Ql (Unsp spec) Not detected Normal NOT DETECTED [facility] Comment on above: Result Comment: This test is not yet approved or cleared by the [place] FDA. When there are no FDA-approved or cleared tests available, and other criteria are met, FDA can make tests available under an emergency access mechanism called an Emergency Use Authorization (EUA). The EUA for this test is supported by the [employer] of Health and Human Service's (HHS's) declaration [...] SARS-CoV-2. Performed By: #### C VDTBH #### [facility] [address] [place] [address] Dr. Sruthi Arechiga GLYCOHEMOGLOBIN A1Con 2021 ADA RECOMMENDATION SEE BELOW Normal [facility] Comment on above: Result Comment: ADA RECOMMENDED LIMIT 4.0 - 6.0 ADA THERAPEUTIC TARGET < 7.0 ACTION SUGGESTED > 7.0 Performed By: #### H STROPN #### [facility] [address] [place] [address] Dr. Sruthi Arechiga Glucose [Mass/Vol] 255 mg/dL Normal [facility] Comment on above: Performed By: #### H STROPN #### [facility] [address] [place] [address] Dr. Sruthi Arechiga HbA1c (Bld) [Mass fraction] 10.5 % Critically high 4.5-6.2 [facility] Comment on above: Performed By: #### H STROPN #### [facility] [address] [address] [address] Sruthi Arechiga MRSA NARES #1on 08-17-2022 MRSA NARES #1 Culture Observations : NO GROWTH OF MRSA AT 48 HOURS. Normal [facility] Comment on above: Performed By: #### M RSAN1 ####[facility] [address] [address]Dr. Sruthi Arechiga PREALBUMINon 08-17-2022 Prealbumin [Mass/Vol] 23.6 mg/dL Normal 20.9-45.5 [facility] Comment on above: Performed By: #### B MP, PREALB, ALB ####[facility] [address] [place], [place] [address]Dr. Sruthi Arechiga PROF CHEM 8 (BAS METB)on Anion gap [Moles/Vol] 11.2 mmol/L Normal [facility] Comment on above: Performed By: #### B MP, PREALB, ALB ####[facility] [address] [place] [address]Dr. Sruthi Arechiga Calcium [Mass/Vol] 9.1 mg/dL Normal 8.5-10.1 [facility] Comment on above: Performed By: #### B MP, PREALB, ALB ####[facility] [address] [address]Dr. Sruthi Arechiga Chloride [Moles/Vol] 105 mmol/L Normal 98-107 [facility] Comment on above: Performed By: #### B MP, PREALB, ALB ####[facility] [address] [address]Dr. Sruthi Arechiga CO2 [Moles/Vol] 26.3 mmol/L Normal 21.0-32.0 [facility] Comment on above: Performed By: #### B MP, PREALB, ALB ####[facility] [address] [address]Dr. Sruthi Arechiga Creatinine [Mass/Vol] 0.72 mg/dL Normal 0.55-1.02 [facility] Comment on above: Performed By: #### B MP, PREALB, ALB ####[facility] [address] [place] [address]Dr. Sruthi Arechiga EGFR-AF SAMOAN >60 Normal >=60 [facility] Comment on above: Performed By: #### B MP, PREALB, ALB ####[facility] [address] [address]Dr. Sruthi Arechiga EGFR-NON AF SAMOAN >60 Normal >=60 [facility] Comment on above: Performed By: #### B MP, PREALB, ALB ####[facility] [address] [address]Dr. Sruthi Arechiga Glucose [Mass/Vol] 119 mg/dL Critically high 74-106 [facility] Comment on above: Performed By: #### B MP, PREALB, ALB ####[facility] [address] [place], [place] [address]Dr. Sruthi Arechiga Potassium [Moles/Vol] 4.5 mmol/L Normal 3.5-5.1 [facility] Comment on above: Performed By: #### B MP, PREALB, ALB ####[facility] [address] [place], [place] [address]Dr. Sruthi Arechiga Sodium [Moles/Vol] 138 mmol/L Normal 136-145 [facility] Comment on above: Performed By: #### B MP, PREALB, ALB ####[facility] [address] [place], [place] [address]Dr. Sruthi Arechiga Urea nitrogen [Mass/Vol] 18.0 mg/dL Normal 7.0-18.0 [facility] Comment on above: Performed By: #### B MP, PREALB, ALB ####[facility] [address] [place], [place] [address]Dr. Sruthi Arechiga Urea nitrogen/Creatinine [Mass ratio] 25.0 mg/mg Normal [facility] Comment on above: Performed By: #### B MP, PREALB, ALB ####[facility] [address] [place] [address]Dr. Sruthi Arechiga Covid-19 PCR (CVDTBH)on 07-11 SARS-CoV-2 (COVID-19) RNA KOLE+probe Ql (Unsp spec) Not detected Normal NOT DETECTED [facility] Comment on above: [...] for this test is supported by the [employer] and Human Service's declaration that [...] longer be used). Performed By: #### C VDTBH #### [facility] [address] [address] [address] Sruthi Arechiga BNPon 07-07-2022 Natriuretic peptide B (Bld) [Mass/Vol] 1389.0 pg/mL Critically high <=900.0 [facility] Comment on above: Performed By: #### B MATERIAL CREW SUPERVISOR, BMP ####[facility] [address] [place] [address]DrIndu Arechiga CBC AUTO DIFFon 07-07-2022 BASO # 0.0 103/ul Normal 0.0-0.1 [facility] Comment on above: Performed By: #### C BC ####[facility] [address] [place] [address]DrIndu Arechiga Basophils/100 WBC (Bld) 0.5 % Normal 0.2-2.0 [facility] Comment on above: Performed By: #### C BC ####[facility] [address] [place] [address]DrIndu Arechiga EO # 0.2 103/ul Normal 0.0-0.7 [facility] Comment on above: Performed By: #### C BC ####[facility] [address]ray[address] [place] [address]Dr. Sruthi Hawk Eosinophils/100 WBC (Bld) 2.4 % Normal 0.9-7.0 [facility] Comment on above: Performed By: #### C BC ####[facility] [address]zascl[address] [place], [place] [address]Dr. Sruthi Arechiga Erythrocyte distribution width (RBC) [Ratio] 13.2 % Normal 11.0-15.0 [facility] Comment on above: Performed By: #### C BC ####[facility] [address] [place], [place] [address]Dr. Sruthi Arechiga Hematocrit (Bld) [Volume fraction] 32.4 % Critically low 36.0-48.0 [facility] Comment on above: Performed By: #### C BC ####[facility] [address]cs[address] [place], [place] [address]Dr. Sruthi Arechiga Hemoglobin (Bld) [Mass/Vol] 10.2 g/dL Critically low 12.0-16.0 [facility] Comment on above: Performed By: #### C BC ####[facility] [address] [place], [place] [address]Dr. Sruthi Arechiga IG # 0.04 10e3/ul Critically high 0.00-0.03 [facility] Comment on above: Performed By: #### C BC ####[facility] Xcrarmxcmf[address] [place], [place] [address]Dr. Sruthi Arechiga IG % 0.5 % Normal 0.0-0.5 [facility] Comment on above: Performed By: #### C BC ####[facility] Nwreppeotm[address] [place], [place] [address]DrIndu Arechiga LYMPH # 2.1 103/ul Normal 1.2-3.8 [facility] Comment on above: Performed By: #### C BC ####[facility] Lwcfikxoya[address] [place], [place] [address]Dr. Sruthi Arechiga Lymphocytes/100 WBC (Bld) 23.9 % Normal 20.5-60.0 [facility] Comment on above: Performed By: #### C BC ####[facility] [address]ven[address] [place] [address]Dr. Sruthi Arechiga MANUAL DIFF REQ NO Normal [facility] Comment on above: Performed By: #### C BC ####[facility] [address] [place] [address]Dr. Sruthi Arechiga MCH (RBC) [Entitic mass] 26.8 pg Normal 26.7-34.0 [facility] Comment on above: Performed By: #### C BC ####[facility] [address]stkic[address] [place], [place] [address]Dr. Sruthi Arechiga MCHC (RBC) [Mass/Vol] 31.5 g/dL Normal 29.9-35.2 [facility] Comment on above: Performed By: #### C BC ####[facility] K[address]obs[address] [place], [place] [address]Dr. Sruthi Arechiga MCV (RBC) [Entitic vol] 85.0 fL Normal 81.0-99.0 [facility] Comment on above: Performed By: #### C BC ####[facility] Erwwidekgq[address] [place], [place] [address]DrIndu Arechiga MONO # 1.1 103/ul Critically high 0.3-0.[address] [facility] Comment on above: Performed By: #### C BC ####[facility] Cqamzatuhy[address] [place], [place] [address]Dr. Sruthi Arechiga Monocytes/100 WBC (Bld) 13.1 % Critically high 1.7-12.0 [facility] Comment on above: Performed By: #### C BC ####[facility] [address]rw[address] [place], [place] [address]DrIndu Arechiga NEUT # 5.2 103/ul Normal 1.4-6.5 [facility] Comment on above: Performed By: #### C BC ####[facility] V[address]pe[address] [place], [place] [address]DrIndu Arechiga Neutrophils/100 WBC (Bld) 59.6 % Normal 43.0-75.0 [facility] Comment on above: Performed By: #### C BC ####[facility] [address] [place] [address]Dr. Sruthi Arechiga Platelet mean volume (Bld) [Entitic vol] 12.6 fL Normal 9.5-13.5 [facility] Comment on above: Performed By: #### C BC ####[facility] [address] [place] [address]Dr. Kamalasven Hawk PLT 146 103/ul Critically low 150-450 [facility] Comment on above: Performed By: #### C BC ####[facility] R[address]nmschww[address] [place], [place] [address]Dr. Kamalasven Hawk RBC 3.81 106/ul Critically low 4.20-5.40 [facility] Comment on above: Performed By: #### C BC ####[facility] Sdtzqcxttn[address] [place], [place] [address]Dr. Sruthi Arechiga WBC 8.7 103/ul Normal 4.0-11.0 [facility] Comment on above: Performed By: #### C BC ####[facility] Yijbrftekw[address] [place], [place] [address]Dr. Sruthi Arechiga PROF CHEM 8 (BAS METB)on Anion gap [Moles/Vol] 12.0 mmol/L Normal [facility] Comment on above: Performed By: #### B MATERIAL CREW SUPERVISOR, BMP ####[facility] O[address]ey[address] [place], [place] [address]Dr. Sruthi Arechiga Calcium [Mass/Vol] 9.0 mg/dL Normal 8.5-10.1 [facility] Comment on above: Performed By: #### B MATERIAL CREW SUPERVISOR, BMP ####[facility] Ukrqem[address] [place], [place] [address]Dr. Sruthi Aerchiga Chloride [Moles/Vol] 99 mmol/L Normal 98-107 [facility] Comment on above: Performed By: #### B MATERIAL CREW SUPERVISOR, BMP ####[facility] Zvkbves[address] [place], [place] [address]Dr. Sruthi Arechiga CO2 [Moles/Vol] 29.4 mmol/L Normal 21.0-32.0 [facility] Comment on above: Performed By: #### B MATERIAL CREW SUPERVISOR, BMP ####[facility] [address] [place] [address]Dr. Sruthi Arechiga Creatinine [Mass/Vol] 0.86 mg/dL Normal 0.55-1.02 [facility] Comment on above: Performed By: #### B MATERIAL CREW SUPERVISOR, BMP ####[facility] [address] [place] [id number]. Sruthi Arechiga EGFR-AF SAMOAN >60 Normal >=60 [facility] Comment on above: Performed By: #### B MATERIAL CREW SUPERVISOR, BMP ####[facility] [address] [place] [address]Dr. Sruthi Arechiga EGFR-NON AF SAMOAN >60 Normal >=60 [facility] Comment on above: Performed By: #### B MATERIAL CREW SUPERVISOR, BMP ####[facility] [address] [place] [address]Dr. Sruthi Arechiga Glucose [Mass/Vol] 185 mg/dL Critically high 74-106 [facility] Comment on above: Performed By: #### B MATERIAL CREW SUPERVISOR, BMP ####[facility] [address] [place] [address]Dr. Sruthi Arechiga Potassium [Moles/Vol] 4.4 mmol/L Normal 3.5-5.1 [facility] Comment on above: Performed By: #### B MATERIAL CREW SUPERVISOR, BMP ####[facility] [address] [place] [address]Dr. Sruthi Arechiga Sodium [Moles/Vol] 136 mmol/L Normal 136-145 [facility] Comment on above: Performed By: #### B MATERIAL CREW SUPERVISOR, BMP ####[facility] [address] [place] [address]Dr. Sruthi Arechiga Urea nitrogen [Mass/Vol] 27.0 mg/dL Critically high 7.0-18.0 [facility] Comment on above: Performed By: #### B MATERIAL CREW SUPERVISOR, BMP ####[facility] [address] [id number]. Sruthi Arechiga Urea nitrogen/Creatinine [Mass ratio] 31.4 mg/mg Normal [facility] Comment on above: Performed By: #### B MATERIAL CREW SUPERVISOR, BMP ####[facility] [address] [place] [id number]. Sruthi Arechiga CBC AUTO DIFFon 07-06-2022 BASO # 0.0 103/ul Normal 0.0-0.1 [facility] Comment on above: Performed By: #### C VDTBH #### [facility] [address] [address] [address] Sruthi Arechiga Basophils/100 WBC (Bld) 0.4 % Normal 0.2-2.0 [facility] Comment on above: Performed By: #### C VDTBH #### [facility] [address] [place] [address] Dr. Sruthi Arechiga EO # 0.2 103/ul Normal 0.0-0.7 [facility] Comment on above: Performed By: #### C VDTBH #### [facility] [address] [place] [address] Dr. Sruthi Arechiga Eosinophils/100 WBC (Bld) 2.4 % Normal 0.9-7.0 [facility] Comment on above: Performed By: #### C VDTBH #### [facility] [address] [place] [address] Dr. Sruthi Arechiga Erythrocyte distribution width (RBC) [Ratio] 13.3 % Normal 11.0-15.0 [facility] Comment on above: Performed By: #### C VDTBH #### [facility] [address] [place] [address] Dr. Sruthi Arechiga Hematocrit (Bld) [Volume fraction] 32.0 % Critically low 36.0-48.0 [facility] Comment on above: Performed By: #### C VDTBH #### [facility] [address] [address] [address] Sruthi Arechiga Hemoglobin (Bld) [Mass/Vol] 10.0 g/dL Critically low 12.0-16.0 [facility] Comment on above: Performed By: #### C VDTBH #### [facility] [address] [address] [address] Sruthi Arechiga IG # 0.05 10e3/ul Critically high 0.00-0.03 [facility] Comment on above: Performed By: #### C VDTBH #### [facility] [address] [address] [address] Sruthi Arechiga IG % 0.5 % Normal 0.0-0.5 [facility] Comment on above: Performed By: #### C VDTBH #### [facility] [address] [address] [address] Sruthi Arechiga LYMPH # 2.4 103/ul Normal 1.2-3.8 [facility] Comment on above: Performed By: #### C VDTBH #### [facility] [address] [address] [address] Sruthi Arechiga Lymphocytes/100 WBC (Bld) 24.5 % Normal 20.5-60.0 [facility] Comment on above: Performed By: #### C VDTBH #### [facility] [address] [address] [address] Sruthi Arechiga MANUAL DIFF REQ NO Normal [facility] Comment on above: Performed By: #### C VDTBH #### [facility] [address] [address] [address] Sruthi Arechiga MCH (RBC) [Entitic mass] 26.5 pg Critically low 26.7-34.0 [facility] Comment on above: Performed By: #### C VDTBH #### [facility] [address] [address] [address] Sruthi Arechiga MCHC (RBC) [Mass/Vol] 31.3 g/dL Normal 29.9-35.2 [facility] Comment on above: Performed By: #### C VDTBH #### [facility] [address] [address] [address] Sruthi Arechiga MCV (RBC) [Entitic vol] 84.9 fL Normal 81.0-99.0 [facility] Comment on above: Performed By: #### C VDTBH #### [facility] [address] [address] [address] Sruthi Arechiga MONO # 1.1 103/ul Critically high 0.3-0.8 [facility] Comment on above: Performed By: #### C VDTBH #### [facility] [address] [address] [address] Sruthi Arechiga Monocytes/100 WBC (Bld) 11.7 % Normal 1.7-12.0 [facility] Comment on above: Performed By: #### C VDTBH #### [facility] [address] [place] [address] Dr. Sruthi Arechiga NEUT # 5.8 103/ul Normal 1.4-6.5 [facility] Comment on above: Performed By: #### C VDTBH #### [facility] [address] [place] [address] Dr. Sruthi Arechiga Neutrophils/100 WBC (Bld) 60.5 % Normal 43.0-75.0 [facility] Comment on above: Performed By: #### C VDTBH #### [facility] [address] [place] [address] Dr. Sruthi Arechiga Platelet mean volume (Bld) [Entitic vol] 11.8 fL Normal 9.5-13.5 [facility] Comment on above: Performed By: #### C VDTBH #### [facility] [address] [place] [address] Dr. Sruthi Arechiga PLT 198 103/ul Normal 150-450 [facility] Comment on above: Performed By: #### C VDTBH #### [facility] [address] [place] [address] Dr. Sruthi Arechiga RBC 3.77 106/ul Critically low 4.20-5.[address] [facility] Comment on above: Performed By: #### C VDTBH #### [facility] [address] [place] [address] Dr. Sruthi Arechiga WBC 9.7 103/ul Normal 4.0-11.0 [facility] Comment on above: Performed By: #### C VDTBH #### [facility] [address] [address] [address] Sruthi Arechiga CULTURE URINEon 07-06-2022 CULTURE [...] F Trimethoprim/Sulfameth oxazole <=20 S F Normal [facility] Comment on above: Performed By: #### U RCX ####[facility] [address] [address]Dr. Sruthi Arechiga IRON AND TIBCon 07-06-2022 % SATURATION 9.3 % Normal [facility] Comment on above: Performed By: #### F ETILI B12FOL ####[facility] [address] [address]Dr. Sruthi Arechiga Iron [Mass/Vol] 33.0 ug/dL Critically low 50.0-170.0 [facility] Comment on above: Performed By: #### F ETIBC, B12FOL ####[facility] [address] [id number]. Sruthi Arechiga TIBC DIRECT 356.0 ug/dL Normal 250.0-450.[address] [facility] Comment on above: Performed By: #### F ETIBC, B12FOL ####[facility] [address] [address]Dr. Sruthi Arechiga OCC BLD IMMUNO SCREENon 06-11 OCCULT BLOOD Negative Normal NEGATIVE [facility] Comment on above: Performed By: #### O BSCRN #### [facility] [address] [address] [address] Sruthi Arechiga POINT OF CARE GLUCOSEon 06-11 Glucose [Mass/Vol] 203 mg/dL Critically high 74-106 [facility] Comment on above: Performed By: #### C BC #### [facility] [address] [address] [address] Sruthi Arechiga Glucose [Mass/Vol] 299 mg/dL Critically high 74-106 [facility] Comment on above: Performed By: #### C VDTBH #### [facility] [address] [address] [address] Sruthi Arechiga Glucose [Mass/Vol] 412 mg/dL Critically high -106 [facility] Comment on above: Performed By: #### C BC #### [facility] [address] [address] [address] Sruthi Arechiga PROF CHEM 8 (BAS METB)on Anion gap [Moles/Vol] 11.0 mmol/L Normal [facility] Comment on above: Performed By: #### B MP ####[facility] [address] [place] [address]DrIndu Arechiga Calcium [Mass/Vol] 9.0 mg/dL Normal 8.5-10.1 [facility] Comment on above: Performed By: #### B MP ####[facility] [address] [place] [address]DrIndu Arechiga Chloride [Moles/Vol] 100 mmol/L Normal 98-107 [facility] Comment on above: Performed By: #### B MP ####[facility] [address] [place] [id number] Arechiga CO2 [Moles/Vol] 28.5 mmol/L Normal 21.0-32.0 [facility] Comment on above: Performed By: #### B MP ####[facility] [address] [id number] Arechiga Creatinine [Mass/Vol] 0.98 mg/dL Normal 0.55-1.02 [facility] Comment on above: Performed By: #### B MP ####[facility] [address] [id number]. Sruthi Arechiga EGFR-AF SAMOAN >60 Normal >=60 [facility] Comment on above: Performed By: #### B MP ####[facility] [address] [id number]. Kamalasven Hawk EGFR-NON AF SAMOAN 56 mL/min/1.73m2 Critically low >=60 [facility] Comment on above: Performed By: #### B MP ####[facility] [address] [place] [address]Dr. Sruthi Arechiga Glucose [Mass/Vol] 139 mg/dL Critically high 74-106 [facility] Comment on above: Performed By: #### B MP ####[facility] [address] [place] [address]Dr. Sruthi Arechiga Potassium [Moles/Vol] 4.5 mmol/L Normal 3.5-5.1 [facility] Comment on above: Performed By: #### B MP ####[facility] [address] [place] [address]Dr. Sruthi Arechiga Sodium [Moles/Vol] 135 mmol/L Critically low 136-145 [facility] Comment on above: Performed By: #### B MP ####[facility] [address] [place] [address]Dr. Sruthi Arechiga Urea nitrogen [Mass/Vol] 25.0 mg/dL Critically high 7.0-18.0 [facility] Comment on above: Performed By: #### B MP ####[facility] [address] [place] [address]Dr. Sruthi Arechiga Urea nitrogen/Creatinine [Mass ratio] 25.5 mg/mg Normal [facility] Comment on above: Performed By: #### B MP ####[facility] [address] [place], [place] [address]Dr. Sruthi Arechiga VIT B12 AND FOLATEon 022 Cobalamin (Vitamin B12) [Mass/Vol] 653.0 pg/mL Normal 193.0-986.0 [facility] Comment on above: Performed By: #### F ETIBC, B12FOL ####[facility] [address] [place] [address]Dr. Sruthi Arechiga FOLATE 17.90 ng/mL Normal 8.60-58.90 [facility] Comment on above: Performed By: #### F ETIBC, B12FOL ####[facility] [address] [place] [address]Dr. Sruthi Arechiga XR CHEST 2 Von 07-06-2022 [...] GORDON VALENZUELA Date: 2022-07-06 08:43 Normal [facility] CBC AUTO DIFFon 07-05-2022 BASO # 0.0 103/ul Normal 0.0-0.1 [facility] Comment on above: Performed By: #### C BC ####[facility] [address] [place] [address]Dr. Sruthi Arechiga Basophils/100 WBC (Bld) 0.4 % Normal 0.2-2.0 [facility] Comment on above: Performed By: #### C BC ####[facility] [address] [place] [id number]. Sruthi Arechiga EO # 0.2 103/ul Normal 0.0-0.7 [facility] Comment on above: Performed By: #### C BC ####[facility] [address] [place] [address]Dr. Sruthi Arechiga Eosinophils/100 WBC (Bld) 2.6 % Normal 0.9-7.0 [facility] Comment on above: Performed By: #### C BC ####[facility] [address] [place] [address]Dr. Sruthi Arechiga Erythrocyte distribution width (RBC) [Ratio] 13.3 % Normal 11.0-15.0 [facility] Comment on above: Performed By: #### C BC ####[facility] [address]kt[address] [place], [place] [address]Dr. Sruthi Arechiga Hematocrit (Bld) [Volume fraction] 31.3 % Critically low 36.0-48.0 [facility] Comment on above: Performed By: #### C BC ####[facility] [address] [place], [place] [address]Dr. Sruthi Arechiga Hemoglobin (Bld) [Mass/Vol] 9.9 g/dL Critically low 12.0-16.0 [facility] Comment on above: Performed By: #### C BC ####[facility] Vonyyrcllq[address] [place], [place] [address]Dr. Sruthi Arechiga IG # 0.07 10e3/ul Critically high 0.00-0.03 [facility] Comment on above: Performed By: #### C BC ####[facility] [address] [place], [place] [address]Dr. Sruthi Arechiga IG % 0.8 % Critically high 0.0-0.5 [facility] Comment on above: Performed By: #### C BC ####[facility] [address]es[address]ta[address] [place], [place] [address]Dr. Sruthi Arechiga LYMPH # 2.1 103/ul Normal 1.2-3.8 [facility] Comment on above: Performed By: #### C BC ####[facility] A[address]xy[address] [place], [place] [address]Dr. Sruthi Arechiga Lymphocytes/100 WBC (Bld) 22.5 % Normal 20.5-60.0 [facility] Comment on above: Performed By: #### C BC ####[facility] [address] [place], [place] [address]Dr. Sruthi Arechiga MANUAL DIFF REQ NO Normal [facility] Comment on above: Performed By: #### C BC ####[facility] Ez[address]wsv[address] [place] [id number]. Sruthi Arechiga MCH (RBC) [Entitic mass] 27.0 pg Normal 26.7-34.0 [facility] Comment on above: Performed By: #### C BC ####[facility] Scztd[address]qpin[address] [place] [id number]. Sruthi Arechiga MCHC (RBC) [Mass/Vol] 31.6 g/dL Normal 29.9-35.2 [facility] Comment on above: Performed By: #### C BC ####[facility] [address] [place] [address]Dr. Sruthi Hawk MCV (RBC) [Entitic vol] 85.3 fL Normal 81.0-99.0 [facility] Comment on above: Performed By: #### C BC ####[facility] Q[address]mwoeb[address] [place], [place] [address]Dr. Sruthi Arechiga MONO # 1.2 103/ul Critically high 0.3-0.[address] [facility] Comment on above: Performed By: #### C BC ####[facility] [address]cjqtd[address] [place], [place] [address]Dr. Kamalasven Arechiga Monocytes/100 WBC (Bld) 12.9 % Critically high 1.7-12.0 [facility] Comment on above: Performed By: #### C BC ####[facility] Eqod[address]ksjjv[address] [place], [place] [address]Dr. Sruthi Arechiga NEUT # 5.7 103/ul Normal 1.4-6.5 [facility] Comment on above: Performed By: #### C BC ####[facility] [address] [place], [place] [id number]. Kamalasven Arechiga Neutrophils/100 WBC (Bld) 60.8 % Normal 43.0-75.0 [facility] Comment on above: Performed By: #### C BC ####[facility] [address] [place], [place] [address]Dr. Sruthi Arechiga Platelet mean volume (Bld) [Entitic vol] 11.2 fL Normal 9.5-13.5 [facility] Comment on above: Performed By: #### C BC ####[facility] [address] [place], [place] [address]Sj. Sruthi Arechiga PLT 213 103/ul Normal 150-450 [facility] Comment on above: Performed By: #### C BC ####[facility] [facility] [address] [place], [place] [address]Mg. Sruthi Arechiga RBC 3.67 106/ul Critically low 4.20-5.40 [facility] Comment on above: Performed By: #### C BC ####[facility] [address] [place], [place] [address]Tt. Sruthi Arechiga WBC 9.3 103/ul Normal 4.0-11.0 [facility] Comment on above: Performed By: #### C BC ####[facility] [address] [place] [id number]. Sruthi Arechiga POINT OF CARE GLUCOSEon 06-11 Glucose [Mass/Vol] 164 mg/dL Critically high 74-106 [facility] Comment on above: Performed By: #### C VDTBH #### [facility] [address] [address] [address] Sruthi Arechiga Glucose [Mass/Vol] 303 mg/dL Critically high -106 [facility] Comment on above: Performed By: #### P OCGLUC #### [facility] [address] [address] [address] Sruthi Arechiga Glucose [Mass/Vol] 278 mg/dL Critically high -106 [facility] Comment on above: Performed By: #### C VDTBH #### [facility] [address] [address] [address] Sruthi Arechiga PROF CHEM 8 (BAS METB)on Anion gap [Moles/Vol] 9.9 mmol/L Normal [facility] Comment on above: Performed By: #### B MP ####[facility] [address] [place] [id number]. Sruthi Arechiga Calcium [Mass/Vol] 8.7 mg/dL Normal 8.5-10.1 [facility] Comment on above: Performed By: #### B MP ####[facility] [address] [place] [address]Dr. Kamalasven Hawk Chloride [Moles/Vol] 100 mmol/L Normal 98-107 [facility] Comment on above: Performed By: #### B MP ####[facility] [address] [place] [id number]. Kamalasven Hawk CO2 [Moles/Vol] 28.4 mmol/L Normal 21.0-32.0 [facility] Comment on above: Performed By: #### B MP ####[facility] [address] [place], [place] [address]Dr. Sruthi Arechiga Creatinine [Mass/Vol] 0.99 mg/dL Normal 0.55-1.02 [facility] Comment on above: Performed By: #### B MP ####[facility] [address] [place], [place] [address]Dr. Kamalasven Hawk EGFR-AF SAMOAN >60 Normal >=60 [facility] Comment on above: Performed By: #### B MP ####[facility] [address] [place], [place] [address]Dr. Kamalasven Hawk EGFR-NON AF SAMOAN 56 mL/min/1.73m2 Critically low >=60 [facility] Comment on above: Performed By: #### B MP ####[facility] [address] [place], [place] [address]Dr. Sruthi Arechiga Glucose [Mass/Vol] 174 mg/dL Critically high 74-106 [facility] Comment on above: Performed By: #### B MP ####[facility] [address] [place], [place] [id number]. Sruthi Arechiga Potassium [Moles/Vol] 4.3 mmol/L Normal 3.5-5.1 [facility] Comment on above: Performed By: #### B MP ####[facility] [address] [place], [place] [address]Dr. Sruthi Arechiga Sodium [Moles/Vol] 134 mmol/L Critically low 136-145 [facility] Comment on above: Performed By: #### B MP ####[facility] [address] [place] [id number]. Sruthi Arechiga Urea nitrogen [Mass/Vol] 22.0 mg/dL Critically high 7.0-18.0 [facility] Comment on above: Performed By: #### B MP ####[facility] [address] [place] [id number]. Sruthi Arechiga Urea nitrogen/Creatinine [Mass ratio] 22.2 mg/mg Normal [facility] Comment on above: Performed By: #### B MP ####[facility] [address] [place] [address]Dr. Sruthi Arechiga BNPon 07-04-2022 Natriuretic peptide B (Bld) [Mass/Vol] 1822.0 pg/mL Critically high <=900.0 [facility] Comment on above: Performed By: #### C BC #### [facility] [address] [place] [address] Dr. Sruthi Arechiga CBC AUTO DIFFon 07-04-2022 BASO # 0.0 103/ul Normal 0.0-0.1 [facility] Comment on above: Performed By: #### C BC #### [facility] [address] [place] [address] Dr. Sruthi Arechiga Basophils/100 WBC (Bld) 0.4 % Normal 0.2-2.0 [facility] Comment on above: Performed By: #### C BC #### [facility] [address] [place] [address] Dr. Sruthi Arechiga EO # 0.2 103/ul Normal 0.0-0.7 [facility] Comment on above: Performed By: #### C BC #### [facility] [address] [place] [address] Dr. Sruthi Arechiga Eosinophils/100 WBC (Bld) 2.4 % Normal 0.9-7.0 [facility] Comment on above: Performed By: #### C BC #### [facility] [address] [place] [address] Dr. Sruthi Arechiga Erythrocyte distribution width (RBC) [Ratio] 13.5 % Normal 11.0-15.0 [facility] Comment on above: Performed By: #### C BC #### [facility] [address] [place] [address] Dr. Sruthi Arechiga Hematocrit (Bld) [Volume fraction] 36.4 % Normal 36.0-48.0 [facility] Comment on above: Performed By: #### C BC #### [facility] [address] [place] [address] Dr. Sruthi Arechiga Hemoglobin (Bld) [Mass/Vol] 11.6 g/dL Critically low 12.0-16.0 [facility] Comment on above: Performed By: #### C BC #### [facility] [address] [place] [address] Dr. Sruthi Arechiga IG # 0.11 10e3/ul Critically high 0.00-0.03 [facility] Comment on above: Performed By: #### C BC #### [facility] [address] [place] [address] Dr. Sruthi Arechiga IG % 1.2 % Critically high 0.0-0.5 [facility] Comment on above: Performed By: #### C BC #### [facility] [address] [place] [address] Dr. Sruthi Arechiga LYMPH # 1.7 103/ul Normal 1.2-3.8 [facility] Comment on above: Performed By: #### C BC #### [facility] [address] [place] [address] Dr. Sruthi Arechiga Lymphocytes/100 WBC (Bld) 19.0 % Critically low 20.5-60.0 [facility] Comment on above: Performed By: #### C BC #### [facility] [address] [place] [address] Dr. Sruthi Arechiga MANUAL DIFF REQ NO Normal [facility] Comment on above: Performed By: #### C BC #### [facility] [address] [place] [address] Dr. Sruthi Arechiga MCH (RBC) [Entitic mass] 27.3 pg Normal 26.7-34.0 [facility] Comment on above: Performed By: #### C BC #### [facility] [address] [place] [address] Dr. Sruthi Arechiga MCHC (RBC) [Mass/Vol] 31.9 g/dL Normal 29.9-35.2 [facility] Comment on above: Performed By: #### C BC #### [facility] [address] [place] [address] Dr. Sruthi Arechiga MCV (RBC) [Entitic vol] 85.6 fL Normal 81.0-99.0 [facility] Comment on above: Performed By: #### C BC #### [facility] [address] [place] [address] Dr. Sruthi Arechiga MONO # 1.1 103/ul Critically high 0.3-0.8 [facility] Comment on above: Performed By: #### C BC #### [facility] [address] [place] [address] Dr. Sruthi Arechiga Monocytes/100 WBC (Bld) 11.9 % Normal 1.7-12.0 [facility] Comment on above: Performed By: #### C BC #### [facility] [address] [place] [address] Dr. Sruthi Arechiga NEUT # 6.0 103/ul Normal 1.4-6.5 [facility] Comment on above: Performed By: #### C BC #### [facility] [address] [place] [address] Dr. Sruthi Arechiga Neutrophils/100 WBC (Bld) 65.1 % Normal 43.0-75.0 [facility] Comment on above: Performed By: #### C BC #### [facility] [address] [place] [address] Dr. Sruthi Arechiga Platelet mean volume (Bld) [Entitic vol] 10.7 fL Normal 9.5-13.5 [facility] Comment on above: Performed By: #### C BC #### [facility] [address] [place] [address] Dr. Sruthi Arechiga PLT 264 103/ul Normal 150-450 [facility] Comment on above: Performed By: #### C BC #### [facility] [address] [id number] [address] Sruthi Arechiga RBC 4.25 106/ul Normal 4.20-5.40 [facility] Comment on above: Performed By: #### C BC #### [facility] [address] [id number] [address] Sruthi Arechiga WBC 9.2 103/ul Normal 4.0-11.0 [facility] Comment on above: Performed By: #### C BC #### [facility] [id number] [address] Sruthi Arechiga [facility]on 06[facility]11 SARS-CoV-2 (COVID-19) RNA KOLE+probe Ql (Unsp spec) Not detected Normal NOT DETECTED [facility] Comment on above: [...] for this test is supported by the [employer] and Human Service's declaration that [...] be used). Performed By: #### C VDTB ####[facility] [address] [place] [id number]. Sruthi Arechiga ER URINE PROFILEon 2 Bilirubin Ql (U) Negative Normal NEGATIVE [facility] Comment on above: Performed By: #### C VDTBH #### [facility] [address] [address] [address] Sruthi Arechiga Clarity (U) CLEAR Normal CLEAR [facility] Comment on above: Performed By: #### C VDTBH #### [facility] [address] [place] [address] Dr. Sruthi Arechiga Color (U) LT. YELLOW Normal YELLOW [facility] Comment on above: Performed By: #### C VDTBH #### [facility] [address] [place] [address] Dr. Sruthi Arechiga ERUAHD A micrscopic examination will be performed if indicated. Normal [facility] Comment on above: Performed By: #### C VDTBH #### [facility] [address] [place] [address] Dr. Sruthi Arechiga Glucose Ql (U) >1000 Abnormal NEGATIVE [facility] Comment on above: Performed By: #### C VDTBH #### [facility] [address] [place] [address] Dr. Sruthi Arechiga Hemoglobin Ql (U) Negative Normal NEGATIVE [facility] Comment on above: Performed By: #### C VDTBH #### [facility] [address] [place] [address] Dr. Sruthi Arechiga Ketones Ql (U) Negative Normal NEGATIVE [facility] Comment on above: Performed By: #### C VDTBH #### [facility] [address] [place] [address] Dr. Sruthi Arechiga LEUKOCYTES SMALL Abnormal NEGATIVE [facility] Comment on above: Performed By: #### C VDTBH #### [facility] [address] [place] [address] Dr. Sruthi Arechiga Nitrite Ql (U) Negative Normal NEGATIVE [facility] Comment on above: Performed By: #### C VDTBH #### [facility] [address] [place] [address] Dr. Sruthi Arechiga pH (U) 6.0 [pH] Normal 5-9 [facility] Comment on above: Performed By: #### C VDTBH #### [facility] [address] [place] [address] Dr. Sruthi Arechiga SPEC GRAVITY <=1.005 Abnormal 1.005-<=1.02 5 [facility] Comment on above: Performed By: #### C VDTBH #### [facility] [address] [place] [address] Dr. Sruthi Arechiga UA PROTEIN Negative Normal NEGATIVE/ TRACE [facility] Comment on above: Performed By: #### C VDTBH #### [facility] [address] [place] [address] Dr. Sruthi Arechiga UR MICRO IND INDICATED Normal [facility] Comment on above: Performed By: #### C VDTBH #### [facility] [address] [place] [address] Dr. Sruthi Arechiga Urobilinogen Qn (U) 0.2 {Willow'U}/dL Normal 0.2 - 1. 0 [facility] Comment on above: Performed By: #### C VDTBH #### [facility] [address] [place] [address] Dr. Sruthi Arechiga POINT OF CARE GLUCOSEon 06-11 Glucose [Mass/Vol] 262 mg/dL Critically high 74-106 [facility] Comment on above: Performed By: #### P OCGLUC ####[facility] [address] [place] [address]Dr. Sruthi Arechiga PROF CHEM 8 (BAS METB)on Anion gap [Moles/Vol] 13.0 mmol/L Normal [facility] Comment on above: Performed By: #### C BC #### [facility] [address] [place] [address] Dr. Sruthi Arechiga Calcium [Mass/Vol] 9.3 mg/dL Normal 8.5-10.1 [facility] Comment on above: Performed By: #### C BC #### [facility] [address] [place] [address] Dr. Sruthi Arechiga Chloride [Moles/Vol] 99 mmol/L Normal 98-107 [facility] Comment on above: Performed By: #### C BC #### [facility] [address] [address] [address] Sruthi Arechiga CO2 [Moles/Vol] 26.3 mmol/L Normal 21.0-32.0 [facility] Comment on above: Performed By: #### C BC #### [facility] [address] [place] [address] Dr. Sruthi Arechiga Creatinine [Mass/Vol] 0.95 mg/dL Normal 0.55-1.02 [facility] Comment on above: Performed By: #### C BC #### [facility] [address] [address] [address] Sruthi Arechiga EGFR-AF SAMOAN >60 Normal >=60 [facility] Comment on above: Performed By: #### C BC #### [facility] [address] [place] [address] Dr. Sruthi Arechiga EGFR-NON AF SAMOAN 58 mL/min/1.73m2 Critically low >=60 [facility] Comment on above: Performed By: #### C BC #### [facility] [address] [place] [address] Dr. Sruthi Arechiga Glucose [Mass/Vol] 331 mg/dL Critically high 74-106 [facility] Comment on above: Performed By: #### C BC #### [facility] [address] [place] [address] Dr. Sruthi Arechiga Potassium [Moles/Vol] 4.3 mmol/L Normal 3.5-5.1 [facility] Comment on above: Performed By: #### C BC #### [facility] [address] [place] [address] Dr. Sruthi Arechiga Sodium [Moles/Vol] 134 mmol/L Critically low 136-145 [facility] Comment on above: Performed By: #### C BC #### [facility] [address] [place] [address] Dr. Sruthi Arechiga Urea nitrogen [Mass/Vol] 20.0 mg/dL Critically high 7.0-18.0 [facility] Comment on above: Performed By: #### C BC #### [facility] [address] [place] [address] Dr. Sruthi Arechiga Urea nitrogen/Creatinine [Mass ratio] 21.1 mg/mg Normal [facility] Comment on above: Performed By: #### C BC #### [facility] [address] [place] [address] Dr. Sruthi Arechiga TROPONIN, HIGH SENSITIVITYon 07-04-2022 HSTROP 113.1 pg/mL Critically high 4.0-51.3 [facility] Comment on above: Result Comment: CUT- OFF POINTS HAVE BEEN ESTABLISHED BASED ON THE FOURTH UNIVERSAL DEFINITIONS OF MYOCARDIAL INFARCTION. THE UPPER REFERENCE LIMIT (URL) OF TROPONIN, DEFINED THE 99TH PERCENTILE OF cTnI DISTRIBUTION IN A REFERENCE POPULATION, HAS BEEN CONFIRMED THE DECISION THRESHOLD FOR RI DIAGNOSIS. Performed By: #### C BC #### [facility] [address] [place] [address] Dr. Sruthi Arechiga HSTROP 126.6 pg/mL Critically high 4.0-51.3 [facility] Comment on above: Result Comment: CUT- OFF POINTS HAVE BEEN ESTABLISHED BASED ON THE FOURTH UNIVERSAL DEFINITIONS OF MYOCARDIAL INFARCTION. THE UPPER REFERENCE LIMIT (URL) OF TROPONIN, DEFINED THE 99TH PERCENTILE OF cTnI DISTRIBUTION IN A REFERENCE POPULATION, HAS BEEN CONFIRMED THE DECISION THRESHOLD FOR RI DIAGNOSIS. Performed By: #### C VDTBH #### [facility] [address] [place] [address] Dr. Sruthi Arechiga URINE MICROSCOPIC ONLYon BACTERIA LARGE Abnormal NONE SEEN [facility] Comment on above: Performed By: #### C VDTBH #### [facility] [address] [place] [address] Dr. Sruthi Arechiga Bacteria identified Cx Nom (U) INDICATED Normal [facility] Comment on above: Performed By: #### C VDTBH #### [facility] [address] [place] [address] Dr. Sruthi Arechiga CAST NONE SEEN Normal NONE SEEN [facility] Comment on above: Performed By: #### C VDTBH #### [facility] [address] [place] [address] Dr. Sruthi Arechiga Crystals LM Nom (Urine sed) NONE SEEN Normal NONE SEEN [facility] Comment on above: Performed By: #### C VDTBH #### [facility] [address] [address] [address] Sruthi Arechiga Epithelial cells LM Ql (Urine sed) FEW Abnormal NONE SEEN /RARE [facility] Comment on above: Performed By: #### C VDTBH #### [facility] [address] [address] [address] Sruthi Arechiga MUCOUS NONE SEEN Normal NONE SEEN [facility] Comment on above: Performed By: #### C VDTBH #### [facility] [address] [address] [address] Sruthi Arechiga RBC NONE SEEN Abnormal 0-2 [facility] Comment on above: Performed By: #### C VDTBH #### [facility] [address] [place] [address] Dr. Sruthi Arechiga WBC 10-20 Abnormal NONE SEEN [facility] Comment on above: Performed By: #### C VDTBH #### [facility] [address] [place] [address] Dr. Sruthi Arechiga XR CHEST 1 Von [...] GERMAIN COY Date: 2022-07-04 11:53 Normal [facility] CBC COMPLETE BLOOD COUNTon 0 07-03-2022 Erythrocyte distribution width (RBC) [Ratio] 13.4 % Normal 11.5-15.0 [facility] Comment on above: Order Comment: No: D o not add to previous draw Performed By: #### [id number] #### [facility] [address] [place] [address], [facility] Hematocrit (Bld) [Volume fraction] 33.6 % Low 36.0-45.0 [facility] Comment on above: Order Comment: No: D o not add to previous draw Performed By: #### [id number] #### [facility] [address] [place] [id number], [facility] Hemoglobin (Bld) [Mass/Vol] 10.6 g/dL Low 12.0-15.0 [facility] Comment on above: Order Comment: No: D o not add to previous draw Performed By: #### 8 [id number] #### [facility] [address] [place] [address], [facility] MCH (RBC) [Entitic mass] 26.6 pg Low 27.0-33.0 [facility] Comment on above: Order Comment: No: D o not add to previous draw Performed By: #### 8 [id number] #### [facility] [address] [place] [address], [facility] MCHC (RBC) [Mass/Vol] 31.5 g/dL Low 32.0-35.0 [facility] Comment on above: Order Comment: No: D o not add to previous draw Performed By: #### 8 [id number] #### [facility] [address] [place] [address], [facility] MCV (RBC) [Entitic vol] 84.4 fL Normal 82.0-98.0 [facility] Comment on above: Order Comment: No: D o not add to previous draw Performed By: #### [id number] #### [facility] [address] [place] [address], [facility] Nucleated RBC/100 WBC (Bld) [Ratio] 0 % Normal 0-0 [facility] Comment on above: Order Comment: No: D o not add to previous draw Performed By: #### [id number] #### [facility] [address] [place] [address], [facility] PLAT CNT 247 10*3/uL Normal 150-400 [facility] Comment on above: Order Comment: No: D o not add to previous draw Performed By: #### 8 [id number] #### [facility] [address] [place] [address], [facility] RBC (Bld) [#/Vol] 3.98 10*6/uL Normal 3.80-5.00 [facility] Comment on above: Order Comment: No: D o not add to previous draw Performed By: #### [id number] #### [facility] [address] [place] [address], [facility] WBC (Bld) [#/Vol] 10.25 10*3/uL Normal 4.00-10.60 [facility] Comment on above: Order Comment: No: D o not add to previous draw Performed By: #### [id number] #### [facility] [address] POC GLUCOSE LABon 07-03-2022 Glucose [Mass/Vol] 204 mg/dL High 70-100 [facility] Comment on above: Performed By: #### 1 [id number], [id number], [id number] #### [facility] [address] Glucose [Mass/Vol] 135 mg/dL High 70-100 [facility] Comment on above: Performed By: #### [id number] #### [facility] [address] UFH HEPARIN ASSAYon 07-03-20 22 UNFRACTIONATED HEPARIN <0.10 Critically low 0.30-0.70 [facility] Comment on above: Result Comment: Resu lt checked and called. Accurately read back by Chanda @[id number] Rivaroxaban and Apixaban will interfere with the anti Xa assay used to monitor UFH and LMWH. Performed By: #### 3 [id number] #### [facility] [address] [place] [address], [facility] BASIC METABOLIC PANELon 08-2 Calcium [Mass/Vol] 8.8 mg/dL Normal 8.6-10.3 [facility] Comment on above: Order Comment: No: D o not add to previous draw Performed By: #### 8 [id number] #### [facility] [address] [place] [address], [facility] Chloride [Moles/Vol] 104 mmol/L Normal 98-107 [facility] Comment on above: Order Comment: No: D o not add to previous draw Performed By: #### 8 [id number] #### [facility] [address] [place] [address], [facility] CO2 [Moles/Vol] 26 mmol/L Normal 21-31 [facility] Comment on above: Order Comment: No: D o not add to previous draw Performed By: #### 8 [id number] #### [facility] [address] [place] [address], [facility] Creatinine [Mass/Vol] 0.62 mg/dL Normal 0.60-1.20 [facility] Comment on above: Order Comment: No: D o not add to previous draw Performed By: #### 8 [id number] #### [facility] [address] [place] [id number], [facility] GFR/1.73 sq M.predicted among non-blacks MDRD (S/P/Bld) [Vol rate/Area] mL/min/{1.73_m2} Normal >60 [facility] Comment on above: Order Comment: No: D o not add to previous draw Result Comment: [facility]'s estimated glomerular filtration rate (eGFR) [...] individuals. Performed By: #### 8 [id number] #### [facility] [address] [place] [address], [facility] Glucose [Mass/Vol] 212 mg/dL High 70-100 [facility] Comment on above: Order Comment: No: D o not add to previous draw Performed By: #### 8 [id number] #### [facility] [address] [facility] [address], [facility] Potassium [Moles/Vol] 3.8 mmol/L Normal 3.5-5.1 [facility] Comment on above: Order Comment: No: D o not add to previous draw Performed By: #### 8 [id number] #### [facility] [address] [facility] [address], [facility] Sodium [Moles/Vol] 134 mmol/L Low 136-145 [facility] Comment on above: Order Comment: No: D o not add to previous draw Performed By: #### 8 [id number] #### [facility] [address] [facility] Urea nitrogen [Mass/Vol] 15 mg/dL Normal 7-25 [facility] Comment on above: Order Comment: No: D o not add to previous draw Performed By: #### 8 [id number] #### [facility] [address] [facility] [address], [facility] CBC W/DIFFon 07-02-2022 ABS IMM GRANS 0.1 10*3/uL Normal 0.0-0.2 [facility] Comment on above: Order Comment: No: D o not add to previous draw Performed By: #### 8 [id number] #### [facility] [address] [facility] [address], [facility] ABS NEUTROPHILS 6.3 10*3/uL Normal 1.6-7.6 [facility] Comment on above: Order Comment: No: D o not add to previous draw Performed By: #### 8 [id number] #### [facility] [address] [place] [address], [facility] Basophils (Bld) [#/Vol] 0.0 10*3/uL Normal 0.0-0.2 [facility] Comment on above: Order Comment: No: D o not add to previous draw Performed By: #### 8 [id number] #### [facility] [address] [place] [id number], [facility] Basophils/100 WBC (Bld) 0.3 % Normal 0.0-1.0 [facility] Comment on above: Order Comment: No: D o not add to previous draw Performed By: #### 8 [id number] #### [facility] [address] [place] [id number], [facility] Eosinophils (Bld) [#/Vol] 0.2 10*3/uL Normal 0.0-0.5 [facility] Comment on above: Order Comment: No: D o not add to previous draw Performed By: #### 8 [id number] #### [facility] [address] [place] [address], [facility] Eosinophils/100 WBC (Bld) 2.3 % Normal 0.0-6.0 [facility] Comment on above: Order Comment: No: D o not add to previous draw Performed By: #### 8 [id number] #### [facility] [address] [facility] [place] [address], [facility] Erythrocyte distribution width (RBC) [Ratio] 13.5 % Normal 11.5-15.0 [facility] Comment on above: Order Comment: No: D o not add to previous draw Performed By: #### 8 [id number] #### [facility] [address] [place] [id number], [facility] Hematocrit (Bld) [Volume fraction] 31.3 % Low 36.0-45.0 [facility] Comment on above: Order Comment: No: D o not add to previous draw Performed By: #### 8 [id number] #### [facility] [address] [facility] [place] [address], [facility] Hemoglobin (Bld) [Mass/Vol] 10.2 g/dL Low 12.0-15.0 [facility] Comment on above: Order Comment: No: D o not add to previous draw Performed By: #### 8 [id number] #### [facility] [address] [facility] [address], [facility] IMMATURE GRANS 0.8 % Normal 0.0-1.0 [facility] Comment on above: Order Comment: No: D o not add to previous draw Performed By: #### 8 [id number] #### [facility] [address] [facility] [place] [address], [facility] Lymphocytes (Bld) [#/Vol] 1.9 10*3/uL Normal 1.2-4.0 [facility] Comment on above: Order Comment: No: D o not add to previous draw Performed By: #### 8 [id number] #### [facility] [address] [facility] [address], [facility] Lymphocytes/100 WBC (Bld) 19.4 % Low 20.0-45.0 [facility] Comment on above: Order Comment: No: D o not add to previous draw Performed By: #### 8 [id number] #### [facility] [address] [facility] [address], [facility] MCH (RBC) [Entitic mass] 27.5 pg Normal 27.0-33.0 [facility] Comment on above: Order Comment: No: D o not add to previous draw Performed By: #### 8 [id number] #### [facility] [address] [facility] [place] [address], [facility] MCHC (RBC) [Mass/Vol] 32.6 g/dL Normal 32.0-35.0 [facility] Comment on above: Order Comment: No: D o not add to previous draw Performed By: #### 8 [id number] #### [facility] [address] [place] [address], [facility] MCV (RBC) [Entitic vol] 84.4 fL Normal 82.0-98.0 [facility] Comment on above: Order Comment: No: D o not add to previous draw Performed By: #### 8 [id number] #### [facility] [address] [place] [id number], [facility] Monocytes (Bld) [#/Vol] 1.3 10*3/uL High 0.1-1.0 [facility] Comment on above: Order Comment: No: D o not add to previous draw Performed By: #### 8 [id number] #### [facility] [address] [place] [address], [facility] MONOS 13.1 % High 5.0-12.0 [facility] Comment on above: Order Comment: No: D o not add to previous draw Performed By: #### 8 [id number] #### [facility] [address] [place] [id number], [facility] Neutrophils/100 WBC (Bld) 64.1 % Normal 40.0-72.0 [facility] Comment on above: Order Comment: No: D o not add to previous draw Performed By: #### 8 [id number] #### [facility] [address] [facility] [place] [address], [facility] Nucleated RBC/100 WBC (Bld) [Ratio] 0 % Normal 0-0 [facility] Comment on above: Order Comment: No: D o not add to previous draw Performed By: #### 8 [id number] #### [facility] [address] [place] [id number], [facility] PLAT CNT 233 10*3/uL Normal 150-400 [facility] Comment on above: Order Comment: No: D o not add to previous draw Performed By: #### 8 [id number] #### [facility] [address] [place] [address], [facility] RBC (Bld) [#/Vol] 3.71 10*6/uL Low 3.80-5.00 [facility] Comment on above: Order Comment: No: D o not add to previous draw Performed By: #### 8 [id number] #### [address] [place] [address], [facility] WBC (Bld) [#/Vol] 9.85 10*3/uL Normal 4.00-10.60 [facility] Comment on above: Order Comment: No: D o not add to previous draw Performed By: #### 8 [id number] #### [address] [address], [facility] CTA ABDOMEN AND PELVISon CTA ABDOMEN AND PELVIS [facility] Department of Radiology [address] [place] [id number] ======== Patient Name: MARIMAR PATEL : 1955 Sex: F Age: Race: White Pt. Location: [id number] Patient Status: D Ordered Date: 07/02/2022 8:20:00 [...] achievable Electronically signed: Yuni Zhu. Transcribed by: [email or web address], User Resident: Electronically Signed by: YUNI ZHU @ 07/12/2022 01:12 PM Normal [facility] Comment on above: Order Comment: No: D o not add to previous draw No collection time noted on specimen or requisition. The collection time recorded is the time of receipt in the lab. CTA CHESTon 07-02-2022 CTA CHEST [facility] Department of Radiology [address] [place] [id number] ======== Patient Name: MARIMAR PATEL : 1955 Sex: F Age: Race: White Pt. Location: [id number] Patient Status: D Ordered Date: 07/02/2022 8:20:00 [...] 3 cusped view, anterior view and no BACON DE RINDER-CAU view are obtained in 3-D volume rendered [...] calcification. Electronically signed: Yuni Zhu. Transcribed by: [email or web address], User Resident: Electronically Signed by: YUNI ZHU @ 07/12/2022 01:06 PM Normal [facility] Comment on above: Order Comment: No: D o not add to previous draw No collection time noted on specimen or requisition. The collection time recorded is the time of receipt in the lab. Cardiovascular Lab Reporton 07-02-2022 Cardiovascular Lab Report [facility] Patient Name: Amanda [facility] Josep MR #: [id number] Department of Physician: Alex Kelly MRy Division of Service Date: 07/01/2022 Cardiology Birthdate: 1955 Adult Cardiovascular Room #: 4AB [id number] [place] [address] Cardiovascular Laboratory Report CLINICAL PRESENTATION: The patient [...] Betts M.D. Date Trans: 07/02/2022 10:08 A/abdiaziz [id number] cc: Nik Bell M.D. [address] [place] [address] Normal [facility] MAGNESIUM BLOODon 07-02-2022 Magnesium [Mass/Vol] 1.9 mg/dL Normal 1.9-2.7 [facility] Comment on above: Order Comment: No: D o not add to previous draw Performed By: #### 8 [id number] #### [facility] [address] [facility] [place] [address], [facility] POC GLUCOSE LABon 07-02-2022 Glucose [Mass/Vol] 268 mg/dL High 70-100 [facility] Comment on above: Performed By: #### 8 [id number] #### [facility] [address] [place] [address], [place] Glucose [Mass/Vol] 255 mg/dL High 70-100 [facility] Comment on above: Performed By: #### 8 [id number] #### [facility] [address] [place] [address], [facility] Glucose [Mass/Vol] 173 mg/dL High 70-100 [facility] Comment on above: Performed By: #### 8 [id number] #### [facility] [address] [place] [address], [place] Glucose [Mass/Vol] 193 mg/dL High 70-100 [facility] Comment on above: Performed By: #### 1 0070, [id number], [id number] #### [facility] [address] [place] [address], [place] Glucose [Mass/Vol] 185 mg/dL High 70-100 [facility] Comment on above: Performed By: #### 1 0070, [id number], [id number] #### [facility] [address] [place] [address], [facility] UFH HEPARIN ASSAYon 07-02-20 22 UNFRACTIONATED HEPARIN <0.10 Critically low 0.30-0.70 [facility] Comment on above: Result Comment: RESU LTS CHECKED AND CALLED. ACCURATELY READ BACK BY Jessa Schaefer RN at 2200 PMW 07-02-22. Rivaroxaban and Apixaban will interfere with the anti Xa assay used to monitor UFH and LMWH. Performed By: #### 3 [id number] #### [facility] [address] [place] [address], [facility] BASIC METABOLIC PANELon 06-11 Calcium [Mass/Vol] 8.5 mg/dL Low 8.6-10.3 [facility] Comment on above: Order Comment: No: D o not add to previous draw Performed By: #### 0 0071, [id number] #### [facility] [address] [place] [address], [facility] Chloride [Moles/Vol] 105 mmol/L Normal 98-107 [facility] Comment on above: Order Comment: No: D o not add to previous draw Performed By: #### 0 0071, [id number] #### [facility] [address] [place] [address], [place] CO2 [Moles/Vol] 22 mmol/L Normal 21-31 [facility] Comment on above: Order Comment: No: D o not add to previous draw Performed By: #### 0 0071, 08546 #### [facility] [address] [place] [address], [place] Creatinine [Mass/Vol] 0.57 mg/dL Low 0.60-1.20 [facility] Comment on above: Order Comment: No: D o not add to previous draw Performed By: #### 0 0071, 13701 #### [facility] [address] [place] [address], [place] GFR/1.73 sq M.predicted among non-blacks MDRD (S/P/Bld) [Vol rate/Area] mL/min/{1.73_m2} Normal >60 [facility] Comment on above: Order Comment: No: D o not add to previous draw Result Comment: [facility]'s estimated glomerular filtration rate (eGFR) [...] of individuals. Performed By: #### 0 0071, [id number] #### [facility] [address] [place] [address], [place] Glucose [Mass/Vol] 164 mg/dL High 70-100 [facility] Comment on above: Order Comment: No: D o not add to previous draw Performed By: #### 0 0071, 45562 #### [facility] [address] [place] [address], [place] Potassium [Moles/Vol] 3.8 mmol/L Normal 3.5-5.1 [facility] Comment on above: Order Comment: No: D o not add to previous draw Performed By: #### 0 0071, 09232 #### [facility] [address] [place] [address], [facility] Sodium [Moles/Vol] 137 mmol/L Normal 136-145 [facility] Comment on above: Order Comment: No: D o not add to previous draw Performed By: #### 0 0071, [id number] #### [facility] [address] [place] [address], [facility] Urea nitrogen [Mass/Vol] 18 mg/dL Normal 7-25 [facility] Comment on above: Order Comment: No: D o not add to previous draw Performed By: #### 0 0071, 21562 #### [facility] [address] [facility] [place] [address], [facility] CBC W/DIFFon 07-01-2022 ABS IMM GRANS 0.1 10*3/uL Normal 0.0-0.2 [facility] Comment on above: Order Comment: No: D o not add to previous draw Performed By: #### 8 [id number] #### [facility] [address] [facility] [place] [address], [facility] ABS NEUTROPHILS 5.1 10*3/uL Normal 1.6-7.6 [facility] Comment on above: Order Comment: No: D o not add to previous draw Performed By: #### 8 [id number] #### [facility] [address] [place] [id number], [facility] Basophils (Bld) [#/Vol] 0.1 10*3/uL Normal 0.0-0.2 [facility] Comment on above: Order Comment: No: D o not add to previous draw Performed By: #### 8 [id number] #### [facility] [address] [place] [id number], [place] Basophils/100 WBC (Bld) 0.6 % Normal 0.0-1.0 [facility] Comment on above: Order Comment: No: D o not add to previous draw Performed By: #### 8 [id number] #### [facility] [address] [place] [address], [facility] Eosinophils (Bld) [#/Vol] 0.3 10*3/uL Normal 0.0-0.5 [facility] Comment on above: Order Comment: No: D o not add to previous draw Performed By: #### 8 [id number] #### [facility] [address] [place] [address], [facility] Eosinophils/100 WBC (Bld) 2.8 % Normal 0.0-6.0 [facility] Comment on above: Order Comment: No: D o not add to previous draw Performed By: #### 8 [id number] #### [facility] [address] [place] [id number], [facility] Erythrocyte distribution width (RBC) [Ratio] 13.3 % Normal 11.5-15.0 [facility] Comment on above: Order Comment: No: D o not add to previous draw Performed By: #### 8 [id number] #### [facility] [address] [place] [address], [facility] Hematocrit (Bld) [Volume fraction] 32.6 % Low 36.0-45.0 [facility] Comment on above: Order Comment: No: D o not add to previous draw Performed By: #### 8 [id number] #### [facility] [address] [place] [address], [facility] Hemoglobin (Bld) [Mass/Vol] 10.6 g/dL Low 12.0-15.0 [facility] Comment on above: Order Comment: No: D o not add to previous draw Performed By: #### 8 [id number] #### [facility] [address] [place] [address], [place] IMMATURE GRANS 0.7 % Normal 0.0-1.0 [facility] Comment on above: Order Comment: No: D o not add to previous draw Performed By: #### 8 [id number] #### [facility] [address] [facility] [address], [facility] Lymphocytes (Bld) [#/Vol] 2.4 10*3/uL Normal 1.2-4.0 [facility] Comment on above: Order Comment: No: D o not add to previous draw Performed By: #### 8 [id number] #### [facility] [address] [facility] [place] [address], [facility] Lymphocytes/100 WBC (Bld) 26.6 % Normal 20.0-45.0 [facility] Comment on above: Order Comment: No: D o not add to previous draw Performed By: #### 8 [id number] #### [facility] [address] [facility] [address], [facility] MCH (RBC) [Entitic mass] 27.0 pg Normal 27.0-33.0 [facility] Comment on above: Order Comment: No: D o not add to previous draw Performed By: #### 8 [id number] #### [facility] [address] [facility] [place] [address], [facility] MCHC (RBC) [Mass/Vol] 32.5 g/dL Normal 32.0-35.0 [facility] Comment on above: Order Comment: No: D o not add to previous draw Performed By: #### 8 [id number] #### [facility] [address] [facility] [place] [id number], [facility] MCV (RBC) [Entitic vol] 83.0 fL Normal 82.0-98.0 [facility] Comment on above: Order Comment: No: D o not add to previous draw Performed By: #### 8 [id number] #### [facility] [address] [place] [address], [facility] Monocytes (Bld) [#/Vol] 1.2 10*3/uL High 0.1-1.0 [facility] Comment on above: Order Comment: No: D o not add to previous draw Performed By: #### 8 [id number] #### [facility] [address] [place] [id number], [facility] MONOS 13.0 % High 5.0-12.0 [facility] Comment on above: Order Comment: No: D o not add to previous draw Performed By: #### 8 [id number] #### [facility] [address] [place] [address], [facility] Neutrophils/100 WBC (Bld) 56.3 % Normal 40.0-72.0 [facility] Comment on above: Order Comment: No: D o not add to previous draw Performed By: #### 8 [id number] #### [facility] [address] [place] [id number], [facility] Nucleated RBC/100 WBC (Bld) [Ratio] 0 % Normal 0-0 [facility] Comment on above: Order Comment: No: D o not add to previous draw Performed By: #### 8 [id number] #### [facility] [address] [place] [address], [place] PLAT CNT 247 10*3/uL Normal 150-400 [facility] Comment on above: Order Comment: No: D o not add to previous draw Performed By: #### 8 [id number] #### [facility] [address] [place] [id number], [facility] RBC (Bld) [#/Vol] 3.93 10*6/uL Normal 3.80-5.00 [facility] Comment on above: Order Comment: No: D o not add to previous draw Performed By: #### 8 [id number] #### [facility] [address] [place] [address], [place] WBC (Bld) [#/Vol] 9.05 10*3/uL Normal 4.00-10.60 [facility] Comment on above: Order Comment: No: D o not add to previous draw Performed By: #### 8 [id number] #### [facility] [address] [place] [address], [place] MAGNESIUM BLOODon 07-01-2022 Magnesium [Mass/Vol] 1.7 mg/dL Low 1.9-2.7 [facility] Comment on above: Order Comment: No: D o not add to previous draw Performed By: #### 0 0071, [id number] #### [facility] [address] [place] [address], [place] POC GLUCOSE LABon 07-01-2022 Glucose [Mass/Vol] 253 mg/dL High 70-100 [facility] Comment on above: Performed By: #### 8 [id number] #### [facility] [address] [place] [address], [place] Glucose [Mass/Vol] 160 mg/dL High 70-100 [facility] Comment on above: Performed By: #### 8 [id number] #### [facility] [address] [place] [address], [place] Glucose [Mass/Vol] 174 mg/dL High 70-100 [facility] Comment on above: Performed By: #### 8 [id number] #### [facility] [address] [place] [address], [place] Glucose [Mass/Vol] 185 mg/dL High 70-100 [facility] Comment on above: Performed By: #### 8 [id number] #### [facility] [address] [place] [address], [place] Glucose [Mass/Vol] 176 mg/dL High 70-100 [facility] Comment on above: Performed By: #### 8 [id number] #### [facility] [address] [place] [address], [place] UFH HEPARIN ASSAYon 07-01-20 22 UNFRACTIONATED HEPARIN 0.88 IU/mL High 0.30-0.70 Th [facility] Comment on above: Result Comment: [place] roxaban and Apixaban will interfere with the anti Xa assay used to monitor UFH and LMWH. Performed By: #### 3 5200 #### [facility] [address] [place] [address], [facility] BASIC METABOLIC PANELon 08-2 Calcium [Mass/Vol] 8.5 mg/dL Low 8.6-10.3 [facility] Comment on above: Order Comment: No: D o not add to previous draw Performed By: #### 1 0070, 87038, 41953 #### [facility] [address] [place] [address], [facility] Chloride [Moles/Vol] 103 mmol/L Normal 98-107 [facility] Comment on above: Order Comment: No: D o not add to previous draw Performed By: #### 1 0, 36653, 47691 #### [facility] [address] [place] [address], [facility] CO2 [Moles/Vol] 25 mmol/L Normal 21-31 [facility] Comment on above: Order Comment: No: D o not add to previous draw Performed By: #### 1 0070, 03274, 88455 #### [facility] [address] [place] [address], [facility] Creatinine [Mass/Vol] 0.50 mg/dL Low 0.60-1.20 [facility] Comment on above: Order Comment: No: D o not add to previous draw Performed By: #### 1 0070, 35727, [id number] #### [facility] [address] [place] [id number], [facility] GFR/1.73 sq M.predicted among non-blacks MDRD (S/P/Bld) [Vol rate/Area] mL/min/{1.73_m2} Normal >60 [facility] Comment on above: Order Comment: No: D o not add to previous draw Result Comment: [facility]'s estimated glomerular filtration rate (eGFR) [...] of individuals. Performed By: #### 1 0, 04709, 51352 #### [facility] [address] [place] [address], [facility] Glucose [Mass/Vol] 166 mg/dL High 70-100 [facility] Comment on above: Order Comment: No: D o not add to previous draw Performed By: #### 1 0, 85627, 66787 #### [facility] [address] [place] [address], [facility] Potassium [Moles/Vol] 3.3 mmol/L Low 3.5-5.1 [facility] Comment on above: Order Comment: No: D o not add to previous draw Performed By: #### 1 0, 58389, 73481 #### [facility] [address] [place] [address], [place] Sodium [Moles/Vol] 138 mmol/L Normal 136-145 [facility] Comment on above: Order Comment: No: D o not add to previous draw Performed By: #### 1 0, 25842, 21603 #### [facility] [address] [place] [address], [place] Urea nitrogen [Mass/Vol] 17 mg/dL Normal 7-25 [facility] Comment on above: Order Comment: No: D o not add to previous draw Performed By: #### 1 0, 53877, 29174 #### [facility] [address] [place] [address], [place] CBC W/DIFFon 06-30-2022 ABS IMM GRANS 0.1 10*3/uL Normal 0.0-0.2 [facility] Comment on above: Order Comment: No: D o not add to previous draw No collection time noted on specimen or requisition. The collection time recorded is the time of receipt in the lab. Performed By: #### 3 5200 #### [facility] [address] ABS NEUTROPHILS 4.4 10*3/uL Normal 1.6-7.6 [facility] Comment on above: Order Comment: No: D o not add to previous draw No collection time noted on specimen or requisition. The collection time recorded is the time of receipt in the lab. Performed By: #### 3 5200 #### [facility] [address] Basophils (Bld) [#/Vol] 0.1 10*3/uL Normal 0.0-0.2 [facility] Comment on above: Order Comment: No: D o not add to previous draw No collection time noted on specimen or requisition. The collection time recorded is the time of receipt in the lab. Performed By: #### 3 5200 #### [facility] [address] Basophils/100 WBC (Bld) 0.6 % Normal 0.0-1.0 [facility] Comment on above: Order Comment: No: D o not add to previous draw No collection time noted on specimen or requisition. The collection time recorded is the time of receipt in the lab. Performed By: #### 3 5200 #### [facility] [address] [place] [address], [facility] Eosinophils (Bld) [#/Vol] 0.3 10*3/uL Normal 0.0-0.5 [facility] Comment on above: Order Comment: No: D o not add to previous draw No collection time noted on specimen or requisition. The collection time recorded is the time of receipt in the lab. Performed By: #### 3 5200 #### [facility] [address] [place] [address], [facility] Eosinophils/100 WBC (Bld) 3.3 % Normal 0.0-6.0 [facility] Comment on above: Order Comment: No: D o not add to previous draw No collection time noted on specimen or requisition. The collection time recorded is the time of receipt in the lab. Performed By: #### 3 5200 #### [facility] [address] Erythrocyte distribution width (RBC) [Ratio] 13.2 % Normal 11.5-15.0 [facility] Comment on above: Order Comment: No: D o not add to previous draw No collection time noted on specimen or requisition. The collection time recorded is the time of receipt in the lab. Performed By: #### 3 5200 #### [facility] [address] Hematocrit (Bld) [Volume fraction] 35.3 % Low 36.0-45.0 [facility] Comment on above: Order Comment: No: D o not add to previous draw No collection time noted on specimen or requisition. The collection time recorded is the time of receipt in the lab. Performed By: #### 3 5200 #### [facility] [address] Hemoglobin (Bld) [Mass/Vol] 11.2 g/dL Low 12.0-15.0 [facility] Comment on above: Order Comment: No: D o not add to previous draw No collection time noted on specimen or requisition. The collection time recorded is the time of receipt in the lab. Performed By: #### 3 5200 #### [facility] [address] [place] [address], [facility] IMMATURE GRANS 0.7 % Normal 0.0-1.0 [facility] Comment on above: Order Comment: No: D o not add to previous draw No collection time noted on specimen or requisition. The collection time recorded is the time of receipt in the lab. Performed By: #### 3 5200 #### [facility] [address] [place] [address], [facility] Lymphocytes (Bld) [#/Vol] 2.3 10*3/uL Normal 1.2-4.0 [facility] Comment on above: Order Comment: No: D o not add to previous draw No collection time noted on specimen or requisition. The collection time recorded is the time of receipt in the lab. Performed By: #### 3 5200 #### [facility] [address] [place] [address], [facility] Lymphocytes/100 WBC (Bld) 28.1 % Normal 20.0-45.0 [facility] Comment on above: Order Comment: No: D o not add to previous draw No collection time noted on specimen or requisition. The collection time recorded is the time of receipt in the lab. Performed By: #### 3 5200 #### [facility] [address] [place] [address], [facility] MCH (RBC) [Entitic mass] 26.3 pg Low 27.0-33.0 [facility] Comment on above: Order Comment: No: D o not add to previous draw No collection time noted on specimen or requisition. The collection time recorded is the time of receipt in the lab. Performed By: #### 3 5200 #### [facility] [address] MCHC (RBC) [Mass/Vol] 31.7 g/dL Low 32.0-35.0 [facility] Comment on above: Order Comment: No: D o not add to previous draw No collection time noted on specimen or requisition. The collection time recorded is the time of receipt in the lab. Performed By: #### 3 5200 #### [facility] [address] [place] [address], [facility] MCV (RBC) [Entitic vol] 82.9 fL Normal 82.0-98.0 [facility] Comment on above: Order Comment: No: D o not add to previous draw No collection time noted on specimen or requisition. The collection time recorded is the time of receipt in the lab. Performed By: #### 3 5200 #### [facility] [address] [place] [address], [facility] Monocytes (Bld) [#/Vol] 1.1 10*3/uL High 0.1-1.0 [facility] Comment on above: Order Comment: No: D o not add to previous draw No collection time noted on specimen or requisition. The collection time recorded is the time of receipt in the lab. Performed By: #### 3 5200 #### [facility] [address] MONOS 13.3 % High 5.0-12.0 [facility] Comment on above: Order Comment: No: D o not add to previous draw No collection time noted on specimen or requisition. The collection time recorded is the time of receipt in the lab. Performed By: #### 3 5200 #### [facility] [address] [place] [address], [facility] Neutrophils/100 WBC (Bld) 54.0 % Normal 40.0-72.0 [facility] Comment on above: Order Comment: No: D o not add to previous draw No collection time noted on specimen or requisition. The collection time recorded is the time of receipt in the lab. Performed By: #### 3 5200 #### [facility] [address] [place] [address], [facility] Nucleated RBC/100 WBC (Bld) [Ratio] 0 % Normal 0-0 [facility] Comment on above: Order Comment: No: D o not add to previous draw No collection time noted on specimen or requisition. The collection time recorded is the time of receipt in the lab. Performed By: #### 3 5200 #### [facility] [address] [place] [address], [place] PLAT CNT 256 10*3/uL Normal 150-400 [facility] Comment on above: Order Comment: No: D o not add to previous draw No collection time noted on specimen or requisition. The collection time recorded is the time of receipt in the lab. Performed By: #### 3 5200 #### [facility] [address] [place] [address], [facility] RBC (Bld) [#/Vol] 4.26 10*6/uL Normal 3.80-5.00 [facility] Comment on above: Order Comment: No: D o not add to previous draw No collection time noted on specimen or requisition. The collection time recorded is the time of receipt in the lab. Performed By: #### 3 5200 #### [facility] [address] [place] [address], [facility] WBC (Bld) [#/Vol] 8.18 10*3/uL Normal 4.00-10.60 [facility] Comment on above: Order Comment: No: D o not add to previous draw No collection time noted on specimen or requisition. The collection time recorded is the time of receipt in the lab. Performed By: #### 3 5200 #### [facility] [address] MAGNESIUM BLOODon 06-30-2022 Magnesium [Mass/Vol] 1.8 mg/dL Low 1.9-2.7 [facility] Comment on above: Order Comment: No: D o not add to previous draw Performed By: #### 1 0070, 24905, 06179 #### [facility] [address] [facility] [address], [facility] POC GLUCOSE LABon 06-30-2022 Glucose [Mass/Vol] 266 mg/dL High 70-100 [facility] Comment on above: Performed By: #### 8 5499 #### [facility] [address] [facility] [address], [facility] Glucose [Mass/Vol] 346 mg/dL High 70-100 [facility] Comment on above: Performed By: #### 1 0070, 76736, 44235 #### [facility] [address] [facility] [place] [address], [facility] Glucose [Mass/Vol] 206 mg/dL High 70-100 [facility] Comment on above: Performed By: #### 1 0070, 96477, 52041 #### [facility] [address] [facility] [place] [address], [facility] TROPONIN-Ion 06-30-2022 Troponin I.cardiac [Mass/Vol] 1.03 ng/mL Critically high 0.00-0.04 [facility] Comment on above: Result Comment: M-MS EVIOUS CRITICAL RESULT REFERENCE RANGES: 0.00 - 0.04 ng/ml NORMAL 0.05 - 0.50 ng/ml INDETERMINATE > 0.50 ng/ml CONSISTENT WITH AN M.I. Performed By: #### 1 0070, 00357, 61016 #### [facility] [address] [facility] [address] UFH HEPARIN ASSAYon 06-30-20 22 UNFRACTIONATED HEPARIN 0.70 IU/mL Normal 0.30-0.70 Th e [facility] Comment on above: Result Comment: [place] roxaban and Apixaban will interfere with the anti Xa assay used to monitor UFH and LMWH. Performed By: #### 3 5200 #### [facility] [address] [facility] [address], [facility] UNFRACTIONATED HEPARIN 0.61 IU/mL Normal 0.30-0.70 Th [facility] Comment on above: Result Comment: Racheal roxaban and Apixaban will interfere with the anti Xa assay used to monitor UFH and LMWH. Performed By: #### 8 [id number] #### [facility] [address] [facility] [place] [address], [facility] UNFRACTIONATED HEPARIN 0.85 IU/mL High 0.30-0.70 Th e [facility] Comment on above: Result Comment: [place] roxaban and Apixaban will interfere with the anti Xa assay used to monitor UFH and LMWH. Performed By: #### 3 1791 #### [facility] [address] [facility] CBC COMPLETE BLOOD COUNTon 0 06-29-2022 Erythrocyte distribution width (RBC) [Ratio] 13.4 % Normal 11.5-15.0 [facility] Comment on above: Order Comment: No: D o not add to previous draw Performed By: #### 8 [id number] #### [facility] [address] Hematocrit (Bld) [Volume fraction] 34.3 % Low 36.0-45.0 [facility] Comment on above: Order Comment: No: D o not add to previous draw Performed By: #### 8 [id number] #### [facility] [address] Hemoglobin (Bld) [Mass/Vol] 11.3 g/dL Low 12.0-15.0 [facility] Comment on above: Order Comment: No: D o not add to previous draw Performed By: #### 8 [id number] #### [facility] [address] [facility] [place] [address], [facility] MCH (RBC) [Entitic mass] 27.2 pg Normal 27.0-33.0 [facility] Comment on above: Order Comment: No: D o not add to previous draw Performed By: #### 8 [id number] #### [facility] [address] [place] [address], [facility] MCHC (RBC) [Mass/Vol] 32.9 g/dL Normal 32.0-35.0 [facility] Comment on above: Order Comment: No: D o not add to previous draw Performed By: #### 8 [id number] #### [facility] [address] [place] [address], [facility] MCV (RBC) [Entitic vol] 82.7 fL Normal 82.0-98.0 [facility] Comment on above: Order Comment: No: D o not add to previous draw Performed By: #### 8 [id number] #### [facility] [address] [place] [address], [facility] Nucleated RBC/100 WBC (Bld) [Ratio] 0 % Normal 0-0 [facility] Comment on above: Order Comment: No: D o not add to previous draw Performed By: #### 8 [id number] #### [facility] [address] [place] [address], [place] PLAT CNT 234 10*3/uL Normal 150-400 [facility] Comment on above: Order Comment: No: D o not add to previous draw Performed By: #### 8 [id number] #### [facility] [address] [place] [address], [facility] RBC (Bld) [#/Vol] 4.15 10*6/uL Normal 3.80-5.00 [facility] Comment on above: Order Comment: No: D o not add to previous draw Performed By: #### 8 [id number] #### [facility] [address] [place] [address], [facility] WBC (Bld) [#/Vol] 7.28 10*3/uL Normal 4.00-10.60 [facility] Comment on above: Order Comment: No: D o not add to previous draw Performed By: #### 8 [id number] #### [facility] [address] [place] [address], [place] Erythrocyte distribution width (RBC) [Ratio] 13.3 % Normal 11.5-15.0 [facility] Comment on above: Order Comment: No: D o not add to previous draw No collection time noted on specimen or requisition. The collection time recorded is the time of receipt in the lab. Performed By: #### 3 5200 #### [facility] [address] [place] [address], [facility] Hematocrit (Bld) [Volume fraction] 33.4 % Low 36.0-45.0 [facility] Comment on above: Order Comment: No: D o not add to previous draw No collection time noted on specimen or requisition. The collection time recorded is the time of receipt in the lab. Performed By: #### 3 5200 #### [facility] [address] [place] [address], [facility] Hemoglobin (Bld) [Mass/Vol] 10.8 g/dL Low 12.0-15.0 [facility] Comment on above: Order Comment: No: D o not add to previous draw No collection time noted on specimen or requisition. The collection time recorded is the time of receipt in the lab. Performed By: #### 3 5200 #### [facility] [address] [place] [address], [facility] MCH (RBC) [Entitic mass] 26.8 pg Low 27.0-33.0 [facility] Comment on above: Order Comment: No: D o not add to previous draw No collection time noted on specimen or requisition. The collection time recorded is the time of receipt in the lab. Performed By: #### 3 5200 #### [facility] [address] MCHC (RBC) [Mass/Vol] 32.3 g/dL Normal 32.0-35.0 [facility] Comment on above: Order Comment: No: D o not add to previous draw No collection time noted on specimen or requisition. The collection time recorded is the time of receipt in the lab. Performed By: #### 3 5200 #### [facility] [address] [place] [address], [facility] MCV (RBC) [Entitic vol] 82.9 fL Normal 82.0-98.0 [facility] Comment on above: Order Comment: No: D o not add to previous draw No collection time noted on specimen or requisition. The collection time recorded is the time of receipt in the lab. Performed By: #### 3 5200 #### [facility] [address] Nucleated RBC/100 WBC (Bld) [Ratio] 0 % Normal 0-0 [facility] Comment on above: Order Comment: No: D o not add to previous draw No collection time noted on specimen or requisition. The collection time recorded is the time of receipt in the lab. Performed By: #### 3 5200 #### [facility] [address] [place] [address], [facility] PLAT CNT 227 10*3/uL Normal 150-400 [facility] Comment on above: Order Comment: No: D o not add to previous draw No collection time noted on specimen or requisition. The collection time recorded is the time of receipt in the lab. Performed By: #### 3 5200 #### [facility] [address] RBC (Bld) [#/Vol] 4.03 10*6/uL Normal 3.80-5.00 [facility] Comment on above: Order Comment: No: D o not add to previous draw No collection time noted on specimen or requisition. The collection time recorded is the time of receipt in the lab. Performed By: #### 3 5200 #### [facility] [address] WBC (Bld) [#/Vol] 7.85 10*3/uL Normal 4.00-10.60 [facility] Comment on above: Order Comment: No: D o not add to previous draw No collection time noted on specimen or requisition. The collection time recorded is the time of receipt in the lab. Performed By: #### 3 5200 #### [facility] [address] [place] [address], [facility] CBC W/DIFFon 06-29-2022 ABS IMM GRANS 0.0 10*3/uL Normal 0.0-0.2 [facility] Comment on above: Order Comment: No co llection time noted on specimen or requisition. The collection timerecorded is the time of receipt in the lab. Performed By: #### 8 [id number] #### [facility] [address] [place] [address], [facility] ABS NEUTROPHILS 5.2 10*3/uL Normal 1.6-7.6 [facility] Comment on above: Order Comment: No co llection time noted on specimen or requisition. The collection timerecorded is the time of receipt in the lab. Performed By: #### 8 [id number] #### [facility] [address] [facility] [place] [address], [facility] Basophils (Bld) [#/Vol] 0.0 10*3/uL Normal 0.0-0.2 [facility] Comment on above: Order Comment: No co llection time noted on specimen or requisition. The collection timerecorded is the time of receipt in the lab. Performed By: #### 8 [id number] #### [facility] [address] [place] [address], [facility] Basophils/100 WBC (Bld) 0.5 % Normal 0.0-1.0 [facility] Comment on above: Order Comment: No co llection time noted on specimen or requisition. The collection timerecorded is the time of receipt in the lab. Performed By: #### 8 [id number] #### [facility] [address] [facility] [place] [address], [facility] Eosinophils (Bld) [#/Vol] 0.1 10*3/uL Normal 0.0-0.5 [facility] Comment on above: Order Comment: No co llection time noted on specimen or requisition. The collection timerecorded is the time of receipt in the lab. Performed By: #### 8 [id number] #### [facility] [address] [place] [address], [facility] Eosinophils/100 WBC (Bld) 1.3 % Normal 0.0-6.0 [facility] Comment on above: Order Comment: No co llection time noted on specimen or requisition. The collection timerecorded is the time of receipt in the lab. Performed By: #### 8 [id number] #### [facility] [address] Erythrocyte distribution width (RBC) [Ratio] 13.3 % Normal 11.5-15.0 [facility] Comment on above: Order Comment: No co llection time noted on specimen or requisition. The collection timerecorded is the time of receipt in the lab. Performed By: #### 8 [id number] #### [facility] [address] Hematocrit (Bld) [Volume fraction] 34.0 % Low 36.0-45.0 [facility] Comment on above: Order Comment: No co llection time noted on specimen or requisition. The collection timerecorded is the time of receipt in the lab. Performed By: #### 8 [id number] #### [facility] [address] Hemoglobin (Bld) [Mass/Vol] 11.4 g/dL Low 12.0-15.0 [facility] Comment on above: Order Comment: No co llection time noted on specimen or requisition. The collection timerecorded is the time of receipt in the lab. Performed By: #### 8 [id number] #### [facility] [address] IMMATURE GRANS 0.4 % Normal 0.0-1.0 [facility] Comment on above: Order Comment: No co llection time noted on specimen or requisition. The collection timerecorded is the time of receipt in the lab. Performed By: #### 8 [id number] #### [facility] [address] Lymphocytes (Bld) [#/Vol] 1.5 10*3/uL Normal 1.2-4.0 [facility] Comment on above: Order Comment: No co llection time noted on specimen or requisition. The collection timerecorded is the time of receipt in the lab. Performed By: #### 8 [id number] #### [facility] [address] Lymphocytes/100 WBC (Bld) 19.5 % Low 20.0-45.0 [facility] Comment on above: Order Comment: No co llection time noted on specimen or requisition. The collection timerecorded is the time of receipt in the lab. Performed By: #### 8 [id number] #### [facility] [address] [place] [address], [facility] MCH (RBC) [Entitic mass] 27.7 pg Normal 27.0-33.0 [facility] Comment on above: Order Comment: No co llection time noted on specimen or requisition. The collection timerecorded is the time of receipt in the lab. Performed By: #### 8 [id number] #### [facility] [address] MCHC (RBC) [Mass/Vol] 33.5 g/dL Normal 32.0-35.0 [facility] Comment on above: Order Comment: No co llection time noted on specimen or requisition. The collection timerecorded is the time of receipt in the lab. Performed By: #### 8 [id number] #### [facility] [address] [place] [address], [facility] MCV (RBC) [Entitic vol] 82.7 fL Normal 82.0-98.0 [facility] Comment on above: Order Comment: No co llection time noted on specimen or requisition. The collection timerecorded is the time of receipt in the lab. Performed By: #### 8 [id number] #### [facility] [address] [place] [address], [facility] Monocytes (Bld) [#/Vol] 1.0 10*3/uL Normal 0.1-1.0 [facility] Comment on above: Order Comment: No co llection time noted on specimen or requisition. The collection timerecorded is the time of receipt in the lab. Performed By: #### 8 [id number] #### [facility] [address] [facility] [address], [facility] MONOS 12.5 % High 5.0-12.0 [facility] Comment on above: Order Comment: No co llection time noted on specimen or requisition. The collection timerecorded is the time of receipt in the lab. Performed By: #### 8 [id number] #### [facility] [address] [place] [address], [facility] Neutrophils/100 WBC (Bld) 65.8 % Normal 40.0-72.0 [facility] Comment on above: Order Comment: No co llection time noted on specimen or requisition. The collection timerecorded is the time of receipt in the lab. Performed By: #### 8 [id number] #### [facility] [address] Nucleated RBC/100 WBC (Bld) [Ratio] 0 % Normal 0-0 [facility] Comment on above: Order Comment: No co llection time noted on specimen or requisition. The collection timerecorded is the time of receipt in the lab. Performed By: #### 8 [id number] #### [facility] [address] [place] [address], [facility] PLAT CNT 235 10*3/uL Normal 150-400 [facility] Comment on above: Order Comment: No co llection time noted on specimen or requisition. The collection timerecorded is the time of receipt in the lab. Performed By: #### 8 [id number] #### [facility] [address] [place] [address], [facility] RBC (Bld) [#/Vol] 4.11 10*6/uL Normal 3.80-5.00 [facility] Comment on above: Order Comment: No co llection time noted on specimen or requisition. The collection timerecorded is the time of receipt in the lab. Performed By: #### 8 [id number] #### [facility] [address] [place] [address], [facility] WBC (Bld) [#/Vol] 7.91 10*3/uL Normal 4.00-10.60 [facility] Comment on above: Order Comment: No co llection time noted on specimen or requisition. The collection timerecorded is the time of receipt in the lab. Performed By: #### 8 [id number] #### [facility] [address] [facility] [place] [address], [facility] COMP METABOLIC PANELon 06-29 Albumin [Mass/Vol] 2.9 g/dL Low 3.5-5.7 [facility] Comment on above: Order Comment: No: D o not add to previous draw No collection time noted on specimen or requisition. The collection time recorded is the time of receipt in the lab. Performed By: #### 3 [id number] #### [facility] [address] [facility] [place] [address], [facility] ALKALINE PHOSPH 88 IU/L Normal 34-104 [facility] Comment on above: Order Comment: No: D o not add to previous draw No collection time noted on specimen or requisition. The collection time recorded is the time of receipt in the lab. Performed By: #### 3 [id number] #### [facility] [address] [facility] [place] [address], [facility] ALT [Catalytic activity/Vol] 21 U/L Normal 7-52 [facility] Comment on above: Order Comment: No: D o not add to previous draw No collection time noted on specimen or requisition. The collection time recorded is the time of receipt in the lab. Performed By: #### 3 [id number] #### [facility] [address] [place] [address], [facility] AST [Catalytic activity/Vol] 27 U/L Normal 13-39 [facility] Comment on above: Order Comment: No: D o not add to previous draw No collection time noted on specimen or requisition. The collection time recorded is the time of receipt in the lab. Performed By: #### 3 [id number] #### [facility] [address] [place] [address], [place] Bilirubin [Mass/Vol] 0.5 mg/dL Normal 0.3-1.0 [facility] Comment on above: Order Comment: No: D o not add to previous draw No collection time noted on specimen or requisition. The collection time recorded is the time of receipt in the lab. Performed By: #### 3 1791 #### [facility] [address] [place] [address], [place] Calcium [Mass/Vol] 8.2 mg/dL Low 8.6-10.3 [facility] Comment on above: Order Comment: No: D o not add to previous draw No collection time noted on specimen or requisition. The collection time recorded is the time of receipt in the lab. Performed By: #### 3 1791 #### [facility] [address] [place] [address], [place] Chloride [Moles/Vol] 101 mmol/L Normal 98-107 [facility] Comment on above: Order Comment: No: D o not add to previous draw No collection time noted on specimen or requisition. The collection time recorded is the time of receipt in the lab. Performed By: #### 3 1791 #### [facility] [address] [place] [address], [place] CO2 [Moles/Vol] 22 mmol/L Normal 21-31 [facility] Comment on above: Order Comment: No: D o not add to previous draw No collection time noted on specimen or requisition. The collection time recorded is the time of receipt in the lab. Performed By: #### 3 1791 #### [facility] [address] [place] [address], [place] Creatinine [Mass/Vol] 0.45 mg/dL Low 0.60-1.20 [facility] Comment on above: Order Comment: No: D o not add to previous draw No collection time noted on specimen or requisition. The collection time recorded is the time of receipt in the lab. Performed By: #### 3 1791 #### [facility] [address] [place] [address], [facility] GFR/1.73 sq M.predicted among non-blacks MDRD (S/P/Bld) [Vol rate/Area] mL/min/{1.73_m2} Normal >60 [facility] Comment on above: Order Comment: No: D o not add to previous draw No collection time noted on specimen or requisition. The collection time recorded is the time of receipt in the lab. Result Comment: [facility]'s estimated glomerular filtration rate (eGFR) [...] individuals. Performed By: #### 3 [id number] #### [facility] [address] [place] [address], [facility] Glucose [Mass/Vol] 278 mg/dL High 70-100 [facility] Comment on above: Order Comment: No: D o not add to previous draw No collection time noted on specimen or requisition. The collection time recorded is the time of receipt in the lab. Performed By: #### 3 1791 #### [facility] [address] [place] [address], [facility] Potassium [Moles/Vol] 3.8 mmol/L Normal 3.5-5.1 [facility] Comment on above: Order Comment: No: D o not add to previous draw No collection time noted on specimen or requisition. The collection time recorded is the time of receipt in the lab. Performed By: #### 3 1791 #### [facility] [address] [place] [address], [facility] Protein [Mass/Vol] 5.3 g/dL Low 6.0-8.3 [facility] Comment on above: Order Comment: No: D o not add to previous draw No collection time noted on specimen or requisition. The collection time recorded is the time of receipt in the lab. Performed By: #### 3 1791 #### [facility] [address] [place] [address], [facility] Sodium [Moles/Vol] 133 mmol/L Low 136-145 [facility] Comment on above: Order Comment: No: D o not add to previous draw No collection time noted on specimen or requisition. The collection time recorded is the time of receipt in the lab. Performed By: #### 3 1791 #### [address] [address], [facility] Urea nitrogen [Mass/Vol] 19 mg/dL Normal 7-25 [facility] Comment on above: Order Comment: No: D o not add to previous draw No collection time noted on specimen or requisition. The collection time recorded is the time of receipt in the lab. Performed By: #### 3 1791 #### [address] [address], [facility] CTA CHESTon 06-29-2022 CTA CHEST [facility] Department of Radiology [address] [place] [id number] ======== Patient Name: MARIMAR PATEL : 1955 Sex: F Age: Race: White Pt. Location: [facility] Patient Status: E Ordered Date: [...] report. Electronically signed: Shane Baldwin. Transcribed by: [email or web address], User Resident: HILL RUSS Electronically Signed by: SHANE BALDWIN @ 06/29/2022 01:00 AM I personally read this/these film(s) with this resident Normal [facility] Comment on above: Order Comment: Pulmo nary Embolism HEMOGLOBIN A1Con 06-29-2022 Glucose [Moles/Vol] 111 mmol/L Normal [facility] Comment on above: Order Comment: No: D o not add to previous draw No collection time noted on specimen or requisition. The collection time recorded is the time of receipt in the lab. Performed By: #### 3 1791 #### [facility] [address] [place] [address], [facility] HbA1c (Bld) [Mass fraction] 5.5 % Normal 4.0-6.0 [facility] Comment on above: Order Comment: No: D o not add to previous draw No collection time noted on specimen or requisition. The collection time recorded is the time of receipt in the lab. Performed By: #### 3 1791 #### [facility] [address] [place] [address], [facility] LIPID PROFILEon 06-29-2022 Cholesterol [Mass/Vol] 223 mg/dL High 120-200 Th e [facility] Comment on above: Result Comment: CHOL ESTEROL REFERENCE RANGE: 20 YEARS AND OLDER CARDIOVASCULAR RISK Less than 200 mg/dl Low Risk 200 to 239 mg/dl Borderline Risk 240 mg/dl and greater High Risk Performed By: #### 3 1791 #### [facility] [address] [place] [address], [facility] Cholesterol in HDL [Mass/Vol] 28 mg/dL Normal 23-92 [facility] Comment on above: Result Comment: Slig ht variation in normal range could be due to gender and/or age. HDL CHOLESTEROL REFERENCE RANGE: 20 years and older Cardiovascular Risk > or =60 mg/dL Desirable 40 TO 59 mg/dL Low Risk <40 mg/dL High Risk Performed By: #### 3 1791 #### [facility] [address] [place] [address], [place] Cholesterol in LDL [Mass/Vol] 138 mg/dL High 0-130 [facility] Comment on above: Result Comment: LDL IS A CALCULATION LDL IS ONLY VALID IF THE TRIG IS LESS THAN 400. Performed By: #### 3 1791 #### [facility] [address] [place] [address], [facility] Cholesterol.total/Chol esterol in HDL [Mass ratio] 8.0 {ratio} High .0-4.5 [facility] Comment on above: Performed By: #### 3 1791 #### [facility] [address] [place] [address], [facility] NON-HDL CHOLESTEROL 195 mg/dL Normal [facility] Comment on above: Performed By: #### 3 1791 #### [facility] [address] [facility] [place] [address], [facility] Triglyceride [Mass/Vol] 285 mg/dL High 40-149 [facility] Comment on above: Result Comment: TRIG LYCERIDE REFERENCE RANGE: 20 YEARS AND OLDER CARDIOVASCULAR RISK LESS THAN 150 mg/dl LOW RISK 150 TO 199 mg/dl BORDERLINE RISK 200 mg/dl AND GREATER HIGH RISK Performed By: #### 3 1791 #### [facility] [address] [place] [address], [place] VLDL CHOL 57 mg/dL High 0-40 [facility] Comment on above: Performed By: #### 3 1791 #### [facility] [address] [place] [address], [place] POC GLUCOSE LABon 06-29-2022 Glucose [Mass/Vol] 190 mg/dL High 70-100 [facility] Comment on above: Performed By: #### 8 [id number] #### [facility] [address] [place] [address], [facility] Glucose [Mass/Vol] 256 mg/dL High 70-100 [facility] Comment on above: Performed By: #### 8 [id number] #### [facility] [address] [place] [address], [facility] Glucose [Mass/Vol] 444 mg/dL High 70-100 [facility] Comment on above: Performed By: #### 1 0070, [id number], [id number] #### [facility] [address] [place] [address], [place] Glucose [Mass/Vol] 304 mg/dL High 70-100 [facility] Comment on above: Performed By: #### 1 0070, [id number], [id number] #### [facility] [address] [facility] [place], [place] [address] POC SARS COV2 ANTIGEN NEGATI VEon 06-29-2022 POC SARS COV2 ANTIGEN NEG Negative Normal NEGATIVE [facility] Comment on above: Result [...] antigen from SARS-CoV-2 in direct nasopharyngeal swab ([employer]) specimens from individuals who are suspected of [...] Accreditation. Performed By: #### 8 [id number] #### [facility] [address] TROPONIN-Ion 06-29-2022 Troponin I.cardiac [Mass/Vol] 1.52 ng/mL Critically high 0.00-0.04 [facility] Comment on above: Order Comment: [...] M.I. Performed By: #### 3 5200 #### [facility] [address] Troponin I.cardiac [Mass/Vol] 1.77 ng/mL Critically high 0.00-0.04 [facility] Comment on above: Order Comment: [...] M.I. Performed By: #### 3 1791 #### [facility] [address] [place] [address], [facility] TSH3 WITH REFLEX FT4on 06-29 TSH 3RD GENERATION 1.96 uIU/mL Normal 0.34-5.60 [facility] Comment on above: Performed By: #### 3 1791 #### [facility] [address] [facility] [address], [facility] UFH HEPARIN ASSAYon 06-29-20 UNFRACTIONATED HEPARIN 0.15 IU/mL Critically low 0.30-0.70 [facility] Comment on above: Result Comment: RESU LTS CHECKED AND CALLED. ACCURATELY READ BACK BY Isabela Shannon RN at 2220 PMW 06-29-22. Rivaroxaban and Apixaban will interfere with the anti Xa assay used to monitor UFH and LMWH. Performed By: #### 3 1791 #### [facility] [address] [place] [address], [facility] UNFRACTIONATED HEPARIN <0.10 Critically low 0.30-0.70 [facility] Comment on above: Result Comment: Resu lt checked and called. Accurately read back by JENNIFER WILLINGHAM RN @1404 06/29/22 Rivaroxaban and Apixaban will interfere with the anti Xa assay used to monitor UFH and LMWH. Performed By: #### 3 [id number] #### [facility] [address] UNFRACTIONATED HEPARIN <0.10 Critically low 0.30-0.70 [facility] Comment on above: Result Comment: RESU LTS CHECKED AND CALLED. ACCURATELY READ BACK BY REG KILGORE RN @ 0531 Rivaroxaban and Apixaban will interfere with the anti Xa assay used to monitor UFH and LMWH. Performed By: #### 3 5200 #### [facility] [address] [place] [address], [facility] APTTon 2022 aPTT Coag (Bld) [Time] 32.0 s Normal 25.0-35.0 Th e [facility] Comment on above: Result [...] PURPOSE. Performed By: #### 3 [id number] #### [facility] [address] [place] [address], [facility] BNPon 2022 Natriuretic peptide B (Bld) [Mass/Vol] 3794.0 pg/mL Critically high <=900.0 [facility] Comment on above: Performed By: #### C BC #### [facility] [address] [address] [address] Sruthi Arechiga CARDIAC TONJA ADMITon 022 CK [Catalytic activity/Vol] 51 U/L Normal 26-192 [facility] Comment on above: Performed By: #### C BC #### [facility] [address] [place] [address] Dr. Sruthi Arechiga CK.MB [Mass/Vol] 2.23 ng/mL Normal <=3.60 [facility] Comment on above: Performed By: #### C BC #### [facility] [address] [place] [address] Dr. Sruthi Arechiga HSTROP 705.8 pg/mL Critically high 4.0-51.3 [facility] Comment on above: Result Comment: CUT- OFF POINTS HAVE BEEN ESTABLISHED BASED ON THE FOURTH UNIVERSAL DEFINITIONS OF MYOCARDIAL INFARCTION. THE UPPER REFERENCE LIMIT (URL) OF TROPONIN, DEFINED THE 99TH PERCENTILE OF cTnI DISTRIBUTION IN A REFERENCE POPULATION, HAS BEEN CONFIRMED THE DECISION THRESHOLD FOR RI DIAGNOSIS. Performed By: #### C BC #### [facility] [address] [place] [address] Dr. Sruthi Arechiga DIMITRY 73 ng/mL Normal 9-82 [facility] Comment on above: Performed By: #### C BC #### [facility] [address] [place], [place] [id number] Dr. Sruthi Arechiga CBC W MANUAL DIFFon 06-28-20 22 ATYPICAL LYMPH # Normal [facility] Comment on above: Performed By: #### C BCMAN ####[facility] [address] [address]Dr. Sruthi Arechiga ATYPICAL LYMPH % Normal [facility] Comment on above: Performed By: #### C BCMAN ####[facility] [address] [address]Dr. Yilan Arechiga BAND # 0.1 103/ul Normal 0.0-0.3 [facility] Comment on above: Performed By: #### C BCJOSE ANGEL ####[facility] [id number] [address]Dr. Kamalalan Arechiga BAND % 1 % Normal 0-5 [facility] Comment on above: Performed By: #### C BCJOSE ANGEL ####[facility] [address] [address]Dr. Yilan Arechiga BASOM # 0.00 103/ul Normal 0.00-0.10 [facility] Comment on above: Performed By: #### C PITA ####[facility] [address] [place], [place] [address]Dr. Sruthi Arechiga BASOM % 0.0 % Critically low 0.2-2.0 [facility] Comment on above: Performed By: #### C BCJOSE ANGEL ####[facility] [id number] [place], [place] [address]Dr. Yilan Arechiga BLAST # Normal [facility] Comment on above: Performed By: #### C PITA ####[facility] [address] [place], [place] [address]Dr. Yilan Arechiga BLAST % Normal [facility] Comment on above: Performed By: #### C PITA ####[facility] [address] [place], [place] [address]Dr. Sruthi Arechiga CORRECTED WBC Normal 4.0-11.[address] [facility] Comment on above: Performed By: #### C PITA ####[facility] [address] [place] [address]Dr. Yisven Arechiga EOS # 0.13 103/ul Normal 0.00-0.70 [facility] Comment on above: Performed By: #### C BCJOSE ANGEL ####[facility] [address] [place] [address]Dr. Yisven Arechiga EOS% 1.0 % Normal 0.9-7.0 [facility] Comment on above: Performed By: #### C BCJOSE ANGEL ####[facility] [address] [place], [place] [address]Fz. Sruthi Arechiga HCT 38.8 % Normal 36.0-48.0 [facility] Comment on above: Performed By: #### C PITA ####[facility] [address] [place], [place] [address]Wc. Sruthi Arechiga HGB 12.5 g/dl Normal 12.0-16.0 [facility] Comment on above: Performed By: #### C PITA ####[facility] [address]ozmgcj[address] [place], [place] [address]Ig. Sruthi Arechiga LYMPHM # 1.51 103/ul Normal 1.20-3.80 [facility] Comment on above: Performed By: #### C PITA ####[facility] [address] [place], [place] [address]Pj. Sruthi Arechiga LYMPHM% 12.0 % Critically low 20.5-60.0 The [facility] Comment on above: Performed By: #### C PITA ####[facility] [address] [place], [place] [address]Fl. Sruthi Arechiga MCH 27.2 pg Normal 26.7-34.0 [facility] Comment on above: Performed By: #### C PITA ####[facility] [address] [place], [place] [address]Vy. Sruthi Arechiga MCHC 32.2 g/dl Normal 29.9-35.2 [facility] Comment on above: Performed By: #### C PITA ####[facility] [address]rx[address] [place], [place] [address]Jl. Sruthi Arechiga MCV 84.3 fL Normal 81.0-99.0 [facility] Comment on above: Performed By: #### C PITA ####[facility] [address] [place], [place] [address]Ag. Sruthi Arechiga METAMYELOCYTE # Normal [facility] Comment on above: Performed By: #### C PITA ####[facility] [address] [place], [place] [address]Rq. Yilan Arechiga METAMYELOCYTE % Normal [facility] Comment on above: Performed By: #### C BCMAN ####[facility] [address] [place] [id number]. Sruthi Arechiga MONOM# 1.64 103/ul Critically high 0.30-0.80 [facility] Comment on above: Performed By: #### C BCMAN ####[facility] [address] [place] [id number]. Sruthi Arechiga MONOM% 13.0 % Critically high 1.7-12.0 [facility] Comment on above: Performed By: #### C BCJOSE ANGEL ####[facility] [address] [place] [id number]. Sruthi Arechiga MPV 11.7 fL Normal 9.5-13.5 [facility] Comment on above: Performed By: #### C PITA ####[facility] [address] [place] [id number]. Sruthi Arechiga MYELOCYTE # Normal [facility] Comment on above: Performed By: #### C PITA ####[facility] [address] [place] [id number]. Sruthi Arechiga MYELOCYTE % Normal [facility] Comment on above: Performed By: #### C BCJOSE ANGEL ####[facility] [address] [place] [id number]. Sruthi Arechiga NRBC Normal [facility] Comment on above: Performed By: #### C BCJOSE ANGEL ####[facility] [address] [place] [id number]. Sruthi Arechiga PLT 237 103/ul Normal 150-450 [facility] Comment on above: Performed By: #### C PITA ####[facility] [address] [place] [id number]. Sruthi Arechiga RBC 4.60 106/ul Normal 4.20-5.40 [facility] Comment on above: Performed By: #### C BCJOSE ANGEL ####[facility] [address] [place] [id number]. Sruthi Arechiga RDW 13.2 % Normal 11.0-15.0 [facility] Comment on above: Performed By: #### C LIJOSE ANGEL ####[facility] [address] [place], [place] [address]Qz. Sruthi Arechiga SEG # 9.20 103/ul Critically high 1.40-6.50 [facility] Comment on above: Performed By: #### C LIJOSE ANGEL ####[facility] [address] [place], [place] [address]Uf. Sruthi Arechiga SEG % 73.0 % Normal 43.0-75.0 [facility] Comment on above: Performed By: #### C LIJOSE ANGEL ####[facility] [address] [place], [place] [address]Mw. Sruthi Arechiga WBC 12.6 103/ul Critically high 4.0-11.0 [facility] Comment on above: Performed By: #### C PITA ####[facility] [address] [place], [place] [id number]. Sruthi Arechiga Covid-19 PCR (CVDTB)on 06-10 SARS-CoV-2 (COVID-19) RNA KOLE+probe Ql (Unsp spec) Not detected Normal NOT DETECTED [facility] Comment on above: [...] for this test is supported by the [employer] of [employer] and Human Service's declaration that [...] be used). Performed By: #### C VDTB ####[facility] [address] [place] [address]Dr. Sruthi Arechiga LIPASEon 2022 Lipase [Catalytic activity/Vol] 75.0 U/L Normal 73.0-393.0 [facility] Comment on above: Performed By: #### C BC #### [facility] [address] [place] [address] [address] Sruthi Arechiga POINT OF CARE GLUCOSEon 06-10 Glucose [Mass/Vol] 351 mg/dL Critically high 74-106 [facility] Comment on above: Performed By: #### C VDTBH #### [facility] [address] [place] [address] Dr. Sruthi Arechiga PROF 14(COMP METB)on 022 Albumin [Mass/Vol] 2.5 g/dL Critically low 3.4-5.0 [facility] Comment on above: Performed By: #### C MP #### [facility] [address] [place] [address] Dr. Sruthi Arechiga Albumin/Globulin [Mass ratio] 0.6 {ratio} Normal [facility] Comment on above: Performed By: #### C MP #### [facility] [address] [place] [address] Dr. Sruthi Arechiga ALP [Catalytic activity/Vol] 132 U/L Critically high 46-116 [facility] Comment on above: Performed By: #### C MP #### [facility] [address] [place] [address] Dr. Sruthi Arechiga ALT [Catalytic activity/Vol] 32 U/L Normal 14-59 [facility] Comment on above: Performed By: #### C MP #### [facility] [address] [place] [address] Dr. Sruthi Arechiga Anion gap [Moles/Vol] 19.2 mmol/L Normal [facility] Comment on above: Performed By: #### C MP #### [facility] [address] [place] [address] Dr. Sruthi Arechiga AST [Catalytic activity/Vol] 24 U/L Normal 15-37 [facility] Comment on above: Performed By: #### C MP #### [facility] [address] [place] [address] [address] Sruthi Arechiga Bilirubin [Mass/Vol] 0.5 mg/dL Normal 0.2-1.0 [facility] Comment on above: Performed By: #### C MP #### [facility] [address] [place] [address] [address] Sruthi Arechiga Calcium [Mass/Vol] 9.5 mg/dL Normal 8.5-10.1 [facility] Comment on above: Performed By: #### C MP #### [facility] [address] [place] [address] [address] Sruthi Arechiga Chloride [Moles/Vol] 95 mmol/L Critically low 98-107 [facility] Comment on above: Performed By: #### C MP #### [facility] [address] [place] [address] Dr. Sruthi Arechiga CO2 [Moles/Vol] 20.3 mmol/L Critically low 21.0-32.0 [facility] Comment on above: Performed By: #### C MP #### [facility] [address] [place] [address] [address] Sruthi Arechiga Creatinine [Mass/Vol] 0.78 mg/dL Normal 0.55-1.02 [facility] Comment on above: Performed By: #### C MP #### [facility] [address] [place] [address] [address] Sruthi Arechiga EGFR-AF SAMOAN >60 Normal >=60 [facility] Comment on above: Performed By: #### C MP #### [facility] [address] [place] [address] [address] Sruthi Arechiga EGFR-NON AF SAMOAN >60 Normal >=60 [facility] Comment on above: Performed By: #### C MP #### [facility] [address] [place] [address] Dr. Sruthi Arechiga Globulin (S) [Mass/Vol] 4.3 g/dL Normal [facility] Comment on above: Performed By: #### C MP #### [facility] [address] [place] [address] [address] Sruthi Arechiga Glucose [Mass/Vol] 389 mg/dL Critically high 74-106 [facility] Comment on above: Performed By: #### C MP #### [facility] [address] [place] [address] [address] Sruthi Arechiga Potassium [Moles/Vol] 3.5 mmol/L Normal 3.5-5.1 [facility] Comment on above: Performed By: #### C MP #### [facility] [address] [place] [address] [address] Sruthi Arechiga Protein [Mass/Vol] 6.8 g/dL Normal 6.4-8.2 [facility] Comment on above: Performed By: #### C MP #### [facility] [address] [place] [address] [address] Sruthi Arechiga Sodium [Moles/Vol] 131 mmol/L Critically low 136-145 [facility] Comment on above: Performed By: #### C MP #### [facility] [address] [place] [address] [address] Sruthi Arechiga Urea nitrogen [Mass/Vol] 24.0 mg/dL Critically high 7.0-18.0 [facility] Comment on above: Performed By: #### C MP #### [facility] [address] [place] [address] Dr. Sruthi Arechiga Urea nitrogen/Creatinine [Mass ratio] 30.8 mg/mg Normal [facility] Comment on above: Performed By: #### C MP #### [facility] [address] [place] [address] [address] Sruthi Arechiga PROTHROMBIN TIMEon 2 INR Coag (PPP) [Relative time] 1.01 {INR} Normal 0.91-1.16 [facility] Comment on above: Result Comment: [facility] FOR WARFARIN THERAPY --------- [...] 1995;[id number]. Performed By: #### 3 [id number] #### [facility] [address] PT Coag (PPP) [Time] 13.3 s Normal 12.3-14.8 [facility] Comment on above: Result Comment: ALL RESULTS MUST BE INTERPRETED WITH RESPECT TO BLOOD DRAWING ARTIFACT OR DILUTION ERROR OF ANTICOAGULANT AT THE TIME OF SAMPLING. Performed By: #### 3 [id number] #### [facility] [address] [facility]. [address] PROTIMEon 2022 INR Coag (PPP) [Relative time] 0.98 {INR} Normal [facility] Comment on above: Performed By: #### C VDTBH #### [facility] [address] [place] [address] Dr. Sruthi Arechiga INR GUIDELINES SEE BELOW Normal [facility] Comment on above: Result Comment: JESSICA RED INR: 2.0 - 3.0 CONDITIONS NOT LISTED BELOW 2.5 - 3.5 FOR PROSTHETIC HEART VALVE REPLACEMENT 2.5 - 3.5 RECURRENT THROMBOSIS Performed By: #### C VDTBH #### [facility] [address] [place] [address] Dr. Sruthi Arechiga PT Coag (PPP) [Time] 10.6 s Normal 9.0-11.6 [facility] Comment on above: Performed By: #### C VDTBH #### [facility] [address] [place] [address] [address] Sruthi Arechiga PTTon 2022 aPTT Coag (Bld) [Time] 32.5 s Normal 22.3-36.2 Th [facility] Comment on above: Performed By: #### C VDTBH #### [facility] [address] [place] [address] [address] Sruthi Arechiga TROPONIN, HIGH SENSITIVITYon 2022 HSTROP 4940.1 pg/mL Critically high 4.0-51.3 [facility] Comment on above: Result Comment: CUT- OFF POINTS HAVE BEEN ESTABLISHED BASED ON THE FOURTH UNIVERSAL DEFINITIONS OF MYOCARDIAL INFARCTION. THE UPPER REFERENCE LIMIT (URL) OF TROPONIN, DEFINED THE 99TH PERCENTILE OF cTnI DISTRIBUTION IN A REFERENCE POPULATION, HAS BEEN CONFIRMED THE DECISION THRESHOLD FOR RI DIAGNOSIS. Performed By: #### H STROPN #### [facility] [address] [place] [address] [address] Sruthi Arechiga HSTROP 1816.7 pg/mL Critically high 4.0-51.3 The [facility] Comment on above: Result Comment: CUT- OFF POINTS HAVE BEEN ESTABLISHED BASED ON THE FOURTH UNIVERSAL DEFINITIONS OF MYOCARDIAL INFARCTION. THE UPPER REFERENCE LIMIT (URL) OF TROPONIN, DEFINED THE 99TH PERCENTILE OF cTnI DISTRIBUTION IN A REFERENCE POPULATION, HAS BEEN CONFIRMED THE DECISION THRESHOLD FOR RI DIAGNOSIS. Performed By: #### C BC #### [facility] [address] [place] [address] [address] Sruthi Arechiga TSHon 2022 TSH 3.865 uIU/mL Critically high 0.358-3.740 [facility] Comment on above: Performed By: #### T SH, LIPA, BNP, CMADM ####[facility] [address] [place], [place] [address]WcDr. Sruthi Arechiga UFH HEPARIN ASSAYon 06-28-20 22 UNFRACTIONATED HEPARIN <0.10 Critically low 0.30-0.70 [facility] Comment on above: Order Comment: No: [...] LMWH. Performed By: #### 3 [id number] #### [facility] [address] [place] [id number], [facility] XR CHEST 1 Von 2022 XR CHEST [...] by: GERMAIN COY Date: 2022 06:58 Normal [facility] Vital Signs Date Time Vital Sign Value Performing Clinician Facility 12-09-2024 09:25-0500 Body height 157.5 cm Alexis Gilmore DPM Work Phone: [facility] 12-09-2024 09:25-0500 Body mass index (BMI) [Ratio] 31.46 kg/m2 Alexis Gilmore DPM Work Phone: [facility] 12-09-2024 09:25-0500 Body weight 78.02 kg Alexis Gilmore DPM Work Phone: [facility] 12-09-2024 09:25-0500 Respiratory rate 18 /min Alexis Gilmore DPM Work Phone: [facility] 09-30-2024 09:46-0500 Body height 157.5 cm Manjula CUEVAS Work Phone: [facility] 09-30-2024 09:46-0500 Body mass index (BMI) [Ratio] 31.57 kg/m2 Manjula CUEVAS Work Phone: [facility] 09-30-2024 09:46-0500 Body temperature 97.59 [degF] Manjula Hemmer PA Work Phone: [facility] 09-30-2024 09:46-0500 Body weight 78.29 kg Manjula Hemmer PA Work Phone: [facility] 09-30-2024 09:46-0500 Diastolic blood pressure 48 mm[Hg] Manjula Hemmer PA Work Phone: [facility] 09-30-2024 09:46-0500 Heart rate 78 /min Manjula Hemmer PA Work Phone: [facility] 09-30-2024 09:46-0500 Respiratory rate 16 /min Manjula Hemmer PA Work Phone: [facility] 09-30-2024 09:46-0500 SaO2% (BldA) [Mass fraction] 97 % Manjula Hemmer PA Work Phone: [facility] 09-30-2024 09:46-0500 Systolic blood pressure 108 mm[Hg] Manjula Hemmer PA Work Phone: [facility] 09-30-2024 09:21-0500 Body height 157.5 cm Alexis Gilmore DPM Work Phone: [facility] 09-30-2024 09:21-0500 Body mass index (BMI) [Ratio] 31.28 kg/m2 Alexis Gilmore DPM Work Phone: [facility] 09-30-2024 09:21-0500 Body weight 77.56 kg Alexis Gilmore DPM Work Phone: [facility] 09-30-2024 09:21-0500 Respiratory rate 18 /min Alexis Gilmore DPM Work Phone: [facility] 09-22-2024 09:33-0500 Body height 157.5 cm Johnna Cedeño MATERIAL CREW SUPERVISOR Work Phone: [facility] 09-22-2024 09:33-0500 Body mass index (BMI) [Ratio] 31.28 kg/m2 Johnna Cedeño MATERIAL CREW SUPERVISOR Work Phone: [facility] 09-22-2024 09:33-0500 Body weight 77.56 kg Johnna Cedeño MATERIAL CREW SUPERVISOR Work Phone: [facility] 09-22-2024 09:33-0500 Diastolic blood pressure 68 mm[Hg] Johnna Cedeño MATERIAL CREW SUPERVISOR Work Phone: [facility] 09-22-2024 09:33-0500 Heart rate 72 /min Johnna Cedeño MATERIAL CREW SUPERVISOR Work Phone: [facility] 09-22-2024 09:33-0500 SaO2% (BldA) [Mass fraction] 96 % Johnna Cedeño MATERIAL CREW SUPERVISOR Work Phone: [facility] 09-22-2024 09:33-0500 Systolic blood pressure 158 mm[Hg] Johnna Cedeño MATERIAL CREW SUPERVISOR Work Phone: [facility] 07-20-2024 16:14-0400 Diastolic blood pressure 80 mm[Hg] Micheal Priceuria FACILITIES MAINTENANCE SUPERVISOR-TOOL GRINDER Work Phone: [facility] 07-20-2024 16:14-0400 Systolic blood pressure 171 mm[Hg] Mahadr Rohini FACILITIES MAINTENANCE SUPERVISOR-TOOL GRINDER Work Phone: [facility] 07-20-2024 16:10-0400 Body height 157.5 cm Mahjorger Rohini FACILITIES MAINTENANCE SUPERVISOR-TOOL GRINDER Work Phone: [facility] 07-20-2024 16:10-0400 Body mass index (BMI) [Ratio] 29.63 kg/m2 Mahnataly Rohini FACILITIES MAINTENANCE SUPERVISOR-TOOL GRINDER Work Phone: [facility] 07-20-2024 16:10-0400 Body weight 73.48 kg Mahadr Rohini FACILITIES MAINTENANCE SUPERVISOR-TOOL GRINDER Work Phone: [facility] 07-20-2024 16:10-0400 Heart rate 76 /min Mahadr Rohini FACILITIES MAINTENANCE SUPERVISOR-TOOL GRINDER Work Phone: [facility] 07-20-2024 16:10-0400 Respiratory rate 18 /min Micheal Nova FACILITIES MAINTENANCE SUPERVISOR-TOOL GRINDER Work Phone: [facility] 07-09-2024 11:52-0400 Body height 157.5 cm Alexis Gilmore DPM Work Phone: [facility] 07-09-2024 11:52-0400 Body mass index (BMI) [Ratio] 29.45 kg/m2 Alexis Gilmore DPM Work Phone: [facility] 07-09-2024 11:52-0400 Body weight 73.03 kg Alexis Dillon DPM Work Phone: [facility] 07-09-2024 11:52-0400 Diastolic blood pressure 75 mm[Hg] Alexis Gilmore DPM Work Phone: [facility] 07-09-2024 11:52-0400 Heart rate 78 /min Alexis Gilmore DPM Work Phone: [facility] 07-09-2024 11:52-0400 Systolic blood pressure 128 mm[Hg] Alexis Gilmore DPM Work Phone: [facility] 06-30-2024 14:17-0400 Diastolic blood pressure 52 mm[Hg] Trace Ramírez MD, PhD [facility] 06-30-2024 14:17-0400 Systolic blood pressure 134 mm[Hg] Trace Ramírez MD, PhD [facility] 06-22-2024 07:49-0400 Body temperature 97.9 [degF] Nely Curry MD Work Phone: [facility] 06-22-2024 07:49-0400 Diastolic blood pressure 44 mm[Hg] Nely Curry MD Work Phone: [facility] 06-22-2024 07:49-0400 Heart rate 76 /min Nely Curry MD Work Phone: [facility] 06-22-2024 07:49-0400 Respiratory rate 19 /min Nely Curry MD Work Phone: [facility] 06-22-2024 07:49-0400 SaO2% (BldA) [Mass fraction] 91 % Nely Curry MD Work Phone: [facility] 06-22-2024 07:49-0400 Systolic blood pressure 130 mm[Hg] Nely Curry MD Work Phone: [facility] 06-21-2024 17:12-0400 Body height 157.5 cm Nely Curry MD Work Phone: [facility] 06-21-2024 17:12-0400 Body mass index (BMI) [Ratio] 29.26 kg/m2 Nely Curry MD Work Phone: [facility] 06-21-2024 17:12-0400 Body weight 72.58 kg Nely Curry MD Work Phone: [facility] 06-15-2024 15:12-0400 Body height 157.5 cm Margareth Shishehbor DO Work Phone: [facility] 06-15-2024 15:12-0400 Body mass index (BMI) [Ratio] 30.18 kg/m2 Margareth Shishehbor DO Work Phone: [facility] 06-15-2024 15:12-0400 Body weight 74.84 kg Margareth Shishehbor DO Work Phone: [facility] 06-15-2024 15:12-0400 Diastolic blood pressure 70 mm[Hg] Margareth Shishehbor DO Work Phone: [facility] 06-15-2024 15:12-0400 Heart rate 91 /min Margareth Shishehbor DO Work Phone: [facility] 06-15-2024 15:12-0400 Systolic blood pressure 193 mm[Hg] Margareth Shishehbor DO Work Phone: [facility] 05-19-2024 12:35-0400 Diastolic blood pressure 56 mm[Hg] II Nik Bell Work Phone: [facility] 05-19-2024 12:35-0400 Heart rate 64 /min II Nik Bell Work Phone: [facility] 05-19-2024 12:35-0400 Respiratory rate 16 /min II Nik Bell Work Phone: [facility] 05-19-2024 12:35-0400 SaO2% (BldA) [Mass fraction] 96 % II Nik Bell Work Phone: [facility] 05-19-2024 12:35-0400 Systolic blood pressure 142 mm[Hg] II Nik Bell Work Phone: [facility] 05-19-2024 10:00-0400 Inhaled oxygen flow rate 2 L/min II Nik Bell Work Phone: [facility] 05-19-2024 08:33-0400 Body height 157.48 cm II Nik Bell Work Phone: [facility] 05-19-2024 08:33-0400 Body weight 74.84 kg II Nik Bell Work Phone: [facility] 05-18-2024 10:46-0400 Body height 157.48 cm II Nik Bell Work Phone: [facility] 05-18-2024 10:46-0400 Body mass index (BMI) [Ratio] 29.6 kg/m2 II Nik Bell Work Phone: [facility] 05-18-2024 10:46-0400 Body temperature 95.6 [degF] II Nik Bell Work Phone: [facility] 05-18-2024 10:46-0400 Body weight 73.48 kg II Nik Bell Work Phone: [facility] 05-18-2024 10:46-0400 Diastolic blood pressure 60 mm[Hg] II Nik Bell Work Phone: [facility] 05-18-2024 10:46-0400 Heart rate 63 /min II Nik Bell Work Phone: [facility] 05-18-2024 10:46-0400 SaO2% (BldA) [Mass fraction] 96 % II Nik Bell Work Phone: [facility] 05-18-2024 10:46-0400 Systolic blood pressure 142 mm[Hg] II Nik Bell Work Phone: [facility] 12-11-2023 16:15-0500 Body height 157.5 cm Alexis Gilmore DPM Work Phone: [facility] 12-11-2023 16:15-0500 Body mass index (BMI) [Ratio] 29.26 kg/m2 Alexis Gilmore DPM Work Phone: [facility] 12-11-2023 16:15-0500 Body weight 72.58 kg Alexis Gilmore DPM Work Phone: [facility] 12-11-2023 16:15-0500 Diastolic blood pressure 80 mm[Hg] Alexis Gilmore DPM Work Phone: [facility] 12-11-2023 16:15-0500 Heart rate 77 /min Alexis Gilmore DPM Work Phone: [facility] 12-11-2023 16:15-0500 Systolic blood pressure 130 mm[Hg] Alexis Gilmore DPM Work Phone: [facility] 02-19-2023 10:30-0400 Body height 157.48 cm Sabrina Borden Other [employer] Other 02-19-2023 10:30-0400 Body mass index (BMI) [Ratio] 28.35 kg/m2 Sabrina Borden Other [employer] Other 02-19-2023 10:30-0400 Body temperature 97.8 [degF] Sabrina Borden Other [employer] Other 02-19-2023 10:30-0400 Body weight 70.31 kg Sabrina Borden Other [employer] Other 02-19-2023 10:30-0400 Diastolic blood pressure 64 mm[Hg] Sabrina Borden Other [employer] Other 02-19-2023 10:30-0400 SaO2% (BldA) [Mass fraction] 95 % Sabrina Borden Other [employer] Other 02-19-2023 10:30-0400 Systolic blood pressure 112 mm[Hg] Sabrina Borden Other [employer] Other 01-13-2023 16:30-0500 Diastolic blood pressure 57 mm[Hg] II Nik Bell Work Phone: [facility] 01-13-2023 16:30-0500 Heart rate 63 /min II Nik Bell Work Phone: [facility] 01-13-2023 16:30-0500 Respiratory rate 16 /min II Nik Bell Work Phone: [facility] 01-13-2023 16:30-0500 SaO2% (BldA) [Mass fraction] 95 % II Nik Bell Work Phone: [facility] 01-13-2023 16:30-0500 Systolic blood pressure 123 mm[Hg] II Nik Bell Work Phone: [facility] 01-13-2023 14:00-0500 Inhaled oxygen flow rate 2 L/min II Nik Bell Work Phone: [facility] 01-13-2023 11:42-0500 Body height 157.48 cm II Nik Bell Work Phone: [facility] 01-13-2023 11:42-0500 Body weight 68.49 kg II Nik Bell Work Phone: [facility] 01-09-2023 08:30-0500 Body height 157.48 cm Geo Mathew Other [employer] Other 01-09-2023 08:30-0500 Body mass index (BMI) [Ratio] 28.35 kg/m2 Geo Mathew Other [facility] Other 01-09-2023 08:30-0500 Body temperature 97.8 [degF] Geo Mathew Other [facility] Other 01-09-2023 08:30-0500 Body weight 70.31 kg Geo Mathew Other [facility] Other 01-09-2023 08:30-0500 Diastolic blood pressure 68 mm[Hg] Geo Mathew Other [facility] Other 01-09-2023 08:30-0500 SaO2% (BldA) [Mass fraction] 95 % Geo Mathew Other [facility] Other 01-09-2023 08:30-0500 Systolic blood pressure 112 mm[Hg] Geo Mathew Other [facility] Other 09-20-2021 13:00-0500 Body height 157.48 cm Geo Mathew Other [facility] Other 09-20-2021 13:00-0500 Body mass index (BMI) [Ratio] 31.09 kg/m2 Geo Mathew Other [facility] Other 09-20-2021 13:00-0500 Body weight 77.11 kg Geo Mathew Other [facility] Other 09-20-2021 13:00-0500 Diastolic blood pressure 69 mm[Hg] Geo Mathew Other [facility] Other 09-20-2021 13:00-0500 Systolic blood pressure 158 mm[Hg] Geo Mathew Other [facility] Other Encounters Encounter Date Encounter Type Care Provider Facility Start: 12-09-2024 End: 12-09-2024 [employer] [place] [employer] Alexis Gilmore DPM Work Phone: [facility] Start: 12-09-2024 End: 12-09-2024 Bamboo [place] Solarfrantz Gilmore DPM Work Phone: [facility] Start: 12-09-2024 End: 12-09-2024 ambulatory ALEXIS GILMORE Not Available Start: 12-09-2024 End: 12-09-2024 Office outpatient visit 15 minutes Alexis Gilmore DPM Work Phone: [facility] Comment on above: Heel spur, right (Pr imary Dx); Diabetes mellitus due to underlying condition with diabetic polyneuropathy, unspecified whether senior living insulin use ([facility]); Pain due to onychomycosis of toenails of both feet; Onychomycosis; PVD (peripheral vascular disease) ([facility]); Achilles tendinitis, right leg; Contracture of right ankle Start: 10-21-2024 Office outpatient vi sit 25 minutes Trace Ramírez [facility] Start: 10-21-2024 ambulatory Trace Ramírez [facility] Start: 10-15-2024 End: 10-15-2024 Bamboo flowsheet Teena Delcid DO Work Phone: [facility] Start: 10-15-2024 End: 10-15-2024 Bamboo flowsheet Teena Delcid DO Work Phone: [facility] Start: 10-15-2024 End: 10-15-2024 Postop follow up visit related to original px Teena Delcid DO Work Phone: [facility] Comment on above: Pseudophakia (Primar y Dx) Start: 10-15-2024 End: 10-15-2024 ambulatory TEENA DELCID Not Available Start: 09-30-2024 End: 09-30-2024 Bamboo flowsheet Alexis Gilmore DPM Work Phone: [facility] Start: 09-30-2024 End: 09-30-2024 Bamboo flowsheet Alexis Gilmore DPM Work Phone: [facility] Start: 09-30-2024 End: 09-30-2024 Office outpatient visit 15 minutes Manjula Fulton PA Work Phone: [facility] Comment on above: Acute asthmatic bron chitis (CMS/HCC) (Primary Dx); Need for vaccination; Hypotension, unspecified hypotension type Start: 09-30-2024 End: 09-30-2024 Office outpatient visit 10 minutes Alexis Gilmore DPM Work Phone: [facility] Comment on above: Dry gangrene (CMS/HC C) (Primary Dx); PVD (peripheral vascular disease) (CMS/[facility]); Diabetes mellitus due to underlying condition with diabetic polyneuropathy, unspecified whether web services professional insulin use (CMS/HCC); Pain due to onychomycosis of toenails of both feet Start: 09-30-2024 End: 09-30-2024 ambulatory MANJULA FULTON Not Available Start: 09-22-2024 End: 09-22-2024 Office outpatient visit 25 minutes Johnna Cedeño MATERIAL CREW SUPERVISOR Work Phone: [facility] Comment on above: Acute asthmatic bron chitis (CMS/HCC) (Primary Dx); Type 2 diabetes mellitus with hyperglycemia, with long-term current use of insulin ([facility]); Polyneuropathy due to type 2 diabetes mellitus ([facility]); Acute cough Start: 09-22-2024 End: 09-22-2024 ambulatory JOHNNA CEDEÑO Not Available Start: 09-17-2024 End: 09-17-2024 Bamboo flowsheet Teena D Zahler DO Work Phone: [facility] Start: 09-17-2024 End: 09-17-2024 Bamboo flowsheet Teena D Zahler DO Work Phone: [facility] Start: 09-17-2024 End: 09-17-2024 Postop follow up visit related to original px Teena D Zahler DO Work Phone: [facility] Comment on above: Pseudophakia (Primar y Dx) Start: 09-17-2024 End: 09-17-2024 ambulatory TEENA Ml PRISCILAER Not Available Start: 09-07-2024 End: 09-07-2024 Bamboo flowsheet Teena D Zahler DO Work Phone: [facility] Start: 09-07-2024 End: 09-07-2024 Bamboo flowsheet Teena D Zahler DO Work Phone: [facility] Start: 09-07-2024 End: 09-07-2024 Postop follow up visit related to original px Teena D Zahler DO Work Phone: [facility] Comment on above: Pseudophakia (Primar y Dx) Start: 09-07-2024 End: 09-07-2024 ambulatory TEENA Ml FRANCOISER Not Available Start: 08-31-2024 End: 08-31-2024 Bamboo flowsheet Teena D Zahler DO Work Phone: [facility] Start: 08-31-2024 End: 08-31-2024 Bamboo flowsheet Teena D Zahler DO Work Phone: [facility] Start: 08-31-2024 End: 08-31-2024 Postop follow up visit related to original px Teena Delcid DO Work Phone: [facility] Comment on above: Pseudophakia (Primar y Dx); Cataract mature, total senile Start: 08-31-2024 End: 08-31-2024 ambulatory TEENA DELCID Not Available Start: 08-24-2024 End: 08-24-2024 Bamboo flowsheet Teena Delcid DO Work Phone: [facility] Start: 08-24-2024 End: 08-24-2024 Bamboo flowsheet Teena Delcid DO Work Phone: [facility] Start: 08-24-2024 End: 08-24-2024 Postop follow up visit related to original px Teena Delcid DO Work Phone: [facility] Comment on above: Pseudophakia (Primar y Dx) Start: 08-24-2024 End: 08-24-2024 ambulatory TEENA DELCID Not Available Start: 08-18-2024 End: 08-18-2024 ambulatory [facility] Start: 08-04-2024 ambulatory Trace Ramírez [facility] Start: 07-20-2024 End: 07-20-2024 ambulatory [facility] Ambulatory Start: 07-20-2024 End: 07-20-2024 Office outpatient visit 25 minutes Micheal Nova APRN-TOOL GRINDER Work Phone: [facility] Comment on above: S/P peripheral arter y angioplasty (Primary Dx); PAD (peripheral artery disease) ([facility]) Start: 07-20-2024 End: 07-20-2024 Subsequent hospital visit by physician [facility] 4 [facility] Comment on above: PAD (peripheral freddie ry disease) ([facility]); S/P peripheral artery angioplasty Start: 07-20-2024 End: 07-20-2024 ambulatory TERRI Olivier [facility] Start: 07-13-2024 End: 07-13-2024 Bamboo flowsheet Teena Delcid DO Work Phone: [facility] Start: 07-13-2024 End: 07-13-2024 Bamboo flowsheet Teena Dlecid DO Work Phone: [facility] Start: 07-13-2024 End: 07-13-2024 Office outpatient visit 25 minutes Teena Delcid DO Work Phone: [facility] Comment on above: Cataract mature, tot al senile (Primary Dx) Start: 07-13-2024 End: 07-13-2024 ambulatory TEENA DELCID Not Available Start: 07-09-2024 End: 07-09-2024 Bamboo flowsheet Alexis Gilmore DPM Work Phone: [facility] Start: 07-09-2024 End: 07-09-2024 Bamboo flowsheet Alexis Gilmore DPM Work Phone: [facility] Start: 07-09-2024 End: 07-09-2024 Office outpatient visit 15 minutes Alexis Gilmore DPM Work Phone: [facility] Comment on above: Dry gangrene (CMS/HC C) (Primary Dx); PVD (peripheral vascular disease) ([facility]); Diabetes mellitus due to underlying condition with diabetic polyneuropathy, unspecified whether senior living insulin use ([facility]); Onychomycosis; Toe pain, bilateral Start: 07-09-2024 End: 07-09-2024 ambulatory ALEXIS GILMORE Not Available Start: 06-30-2024 End: 06-30-2024 Trace Ramírez Work Phone: [facility] Start: 06-30-2024 ambulatory Trace Ramírez [facility] Start: 06-21-2024 End: 06-22-2024 Subsequent hospital visit by physician Nely Curry MD Work Phone: [facility] Thea Rodriguez 7 Comment on above: S/P peripheral arter y angioplasty (Primary Dx); PAD (peripheral artery disease) ([facility]-H[facility]); Atherosclerosis of [place] arteries of extremities with intermittent claudication, left leg (CMS-HCC); Atherosclerosis of [place]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 with ulceration of other part of foot ([facility]); Acute pain Start: 06-15-2024 End: 06-15-2024 ambulatory NAVI MATHIS [facility] Start: 06-15-2024 End: 06-15-2024 Office outpatient new 60 minutes [facility] Work Phone: [facility] Comment on above: PAD (peripheral freddie ry disease) ([facility]) (Primary Dx); Anemia, unspecified type Start: 06-15-2024 End: 06-15-2024 ambulatory [facility] Ambulatory Start: 06-15-2024 End: 06-15-2024 ambulatory [facility] Start: 05-27-2024 End: 05-27-2024 Patient encounter procedure II Nik Bell Work Phone: [facility] [place] Work Phone: Start: 05-27-2024 End: 05-27-2024 ambulatory II Nik Bell Work Phone: [facility] Work Phone: Start: 05-27-2024 Encounter for other preprocedural examination Rodrigo Yousif [facility] Start: 05-20-2024 End: 05-20-2024 ambulatory ALEXIS GILMORE Not Available Start: 05-19-2024 Non-patient / Non-visit II Mateo Bell Work Phone: [facility] Work Phone: Start: 05-19-2024 End: 05-19-2024 Admission to same day surgery center II Nik Bell Work Phone: [facility]-Interventional Rad[facility] Work Phone: Start: 05-19-2024 End: 05-19-2024 ambulatory II Nik Bell Work Phone: [facility] Work Phone: Start: 05-18-2024 End: 05-18-2024 Patient encounter procedure II Nik Bell Work Phone: [facility] Work Phone: Start: 05-17-2024 End: 05-17-2024 Patient encounter procedure II Nik Bell Work Phone: [facility] [place] Work Phone: Start: 05-17-2024 End: 05-17-2024 ambulatory II Nik Blel Work Phone: [facility] Work Phone: Start: 05-10-2024 End: 05-10-2024 ambulatory [facility] Start: 05-06-2024 End: 05-06-2024 Office outpatient visit 25 minutes Trace Ramírez Work Phone: [facility] Start: 05-05-2024 End: 05-05-2024 ambulatory ALEXIS GILMORE Not Available Start: 05-05-2024 End: 05-05-2024 ambulatory TEENA DELCID Not Available Start: 04-01-2024 End: 04-01-2024 ambulatory JOHNNA CEDEÑO Not Available Start: 03-18-2024 End: 03-18-2024 ambulatory JOHNNA CEDEÑO Not Available Start: 03-04-2024 End: 03-04-2024 ambulatory ALEXIS GILMORE Not Available Start: 02-18-2024 End: 02-18-2024 ambulatory ALEXIS GILMORE Not Available Start: 02-13-2024 End: 02-13-2024 ambulatory [facility] Start: 02-12-2024 End: 02-12-2024 ambulatory JOHNNA CEDEÑO Not Available Start: 01-15-2024 End: 01-15-2024 ambulatory ALEXIS GILMORE Not Available Start: 01-05-2024 End: 01-05-2024 ambulatory ALEXIS GILMORE Not Available Start: 12-19-2023 ambulatory ANABELLE RICH [facility] Start: 12-15-2023 End: 12-15-2023 ambulatory NIK BELL Not Available Start: 12-11-2023 End: 12-11-2023 Office outpatient visit 15 minutes Alexis Gilmore DPM Work Phone: [facility] Comment on above: Diabetes mellitus du e to underlying condition with diabetic polyneuropathy, unspecified whether web services professional insulin use (CMS/HCC) (Primary Dx); PVD (peripheral vascular disease) (CMS/HCC); Dry gangrene (CMS/HCC); Foot ulcer, left, with fat layer exposed (CMS/HCC) Start: 12-11-2023 End: 12-11-2023 ambulatory ALEXIS GILMORE Not Available Start: 12-05-2023 Evaluation and management of inpatient [facility] Start: 12-04-2023 Evaluation and management of inpatient [facility] Start: 12-04-2023 Evaluation and management of inpatient [facility] Start: 12-03-2023 Evaluation and management of inpatient [facility] Start: 12-03-2023 End: 12-05-2023 Evaluation and management of inpatient [facility] Start: 02-19-2023 End: 02-19-2023 Patient encounter procedure Sabrina Borden [facility] Vascular Surgery Start: 02-19-2023 End: 02-19-2023 ambulatory MONSE Bell Work Phone: [facility] Other Start: 01-31-2023 End: 01-31-[address] NIK BELL Facility: Start: 01-13-2023 End: 01-13-2023 Admission to same day surgery center MONSE Bell Work Phone: [facility]Inter[facility] Work Phone: Start: 01-13-2023 End: 01-13-2023 ambulatory II Nik Bell Work Phone: [facility] Work Phone: Start: 01-09-2023 End: 01-09-2023 ambulatory Geo Mathew Other [facility] Other Start: 01-09-2023 Office outpatient ne w 60 minutes Geo Mathew [facility] Start: 12-30-2022 End: 12-31-2022 ambulatory ALEXIS GILMORE Facility:[facility] Start: 11-12-[address] DOCTOR CHAN Facility :[facility] Start: 10-18-2022 End: 10-18-2022 Postop follow up visit related to original px Trace Ramírez MD, PhD [facility] Start: 10-18-2022 End: 10-18-2022 Ahmed M Alkaliby Work Phone: [facility] Start: 10-17-2022 End: 10-17-2022 Ahmed M Alkaliby Work Phone: [facility] Start: 10-14-2022 End: 10-14-2022 Office outpatient visit 25 minutes Ahmed M Alkaliby Work Phone: [facility] Start: 09-27-2022 End: 09-27-2022 Office outpatient visit 25 minutes Ahmed M Alkaliby Work Phone: [facility] Start: 08-17-2022 End: 08-18-[address] PANCHITO CHACON Facility:[facility] Start: 07-21-2022 End: 07-21-[address] NIK BELL Facility:[facility] Start: 07-04-2022 End: 07-07-[address] NIK BELL Facility:[facility] Start: 06-29-2022 End: 07-03-2022 Evaluation and management of inpatient CHASE JOSE LUIS [facility] Start: 2022 End: [address] NIK BELL Facility:[facility] Start: 02-15-[address] NIK BELL Facilit y:[facility] Start: 09-20-2021 End: 09-20-2021 ambulatory Geo Mathew Other [facility] Other Start: 09-20-2021 Office outpatient vi sit 15 minutes Geo Mathew [facility] Vascular Surgery Start: 01-09-2021 End: 01-09-2021 Office outpatient visit 25 minutes Devon Hicks Jr Work Phone: [facility] [place] Start: 10-10-2020 End: 10-10-2020 Devon Hicks Jr Work Phone: [facility] [place] Start: 08-29-2020 End: 08-29-2020 Office outpatient visit 25 minutes Devon Hicks Jr Work Phone: [facility] [place] [facility] Start: 10-26-2019 End: 10-26-2019 Devon Hicks Jr Work Phone: [facility] [place] Start: 09-22-2019 End: 09-22-2019 Devon Hicks Jr Work Phone: [facility] Start: 05-05-2019 End: 05-05-2019 Office consultation new/estab patient 60 min Devon Hicks Jr Work Phone: [facility] Procedures Date Procedure Procedure Detail Performing Clinician Start: 10-21-2024 Eylea 1mg Pre-filled Syringe Trace kohli Start: 10-21-2024 Fluorescein angrph w/multiframe i&r uni/bi Trace Ramírez Start: 10-21-2024 Intravitreal Injection Of Phamacologic Agent Trace Ramírez Start: 09-22-2024 Hemoglobin glycosylated a1c Johnna headley NP Work Phone: Start: 08-04-2024 Computerized ophthalmic imaging retina Trace Ramírez Start: 08-04-2024 Eylea 1mg Pre-filled Syringe Trace kohli Start: 08-04-2024 Intravitreal Injection Of Phamacologic Agent Trcae Ramírez Start: 07-20-2024 Non-invas physiologic std extremity art 2 level Terri I Tabirta FACILITIES MAINTENANCE SUPERVISOR-TOOL GRINDER Work Phone: Start: 07-13-2024 Oph bmtry prtl coher intrfrmtry io lens pwr kalyn Delcid DO Work Phone: Start: 06-30-2024 End: 06-30-2024 Aflibercept injection Trace Ramírez MD, PhD Start: 06-30-2024 End: 06-30-2024 Computerized ophthalmic imaging retina Trace Ramírez MD, PhD Start: 06-30-2024 End: 06-30-2024 Intravitreal Injection Of Phamacologic Agent Trace Ramírez MD, PhD Start: 06-30-2024 Intravitreal Injection Of Phamacologic Agent Trace Ramírez Start: 06-30-2024 End: 06-30-2024 Intravitreal njx pharmacologic agt spx Trace Ramírez MD, PhD Start: 06-21-2024 INVASIVE VASCULAR PROCEDURE Margareth chou DO Work Phone: Start: 06-21-2024 End: 06-21-2024 Coagulation time activated Nely Curry MD Work Phone: Start: 06-21-2024 End: 06-21-2024 Coagulation time activated Nely Curry MD Work Phone: Start: 05-19-2024 Abdominal aortogram II Nik Bell Work Phone: Start: 05-19-2024 Aortography II Nik Ray Work Phone: Start: 05-17-2024 Pulse volume recorder pneumoplethysmography II Nik Bell Work Phone: Start: 05-10-2024 History of coronary artery bypass grafting S/P CABG x 4 Johnna Cedeño NP Work Phone: Start: 05-06-2024 End: 05-06-2024 Eylea 1mg Pre-filled Syringe Trace kohli MD, PhD Start: 05-06-2024 End: 05-06-2024 Fundus photography w/interpretation & report Trace Ramírez MD, PhD Start: 05-06-2024 End: 05-06-2024 Intravitreal Injection Of Phamacologic Agent Trace Ramírez MD, PhD Start: 05-06-2024 End: 05-06-2024 OCT No Charge Uni Or Bi Trace Ramírez MD, PhD Start: 06-04-2023 H/O: hysterectomy History of hysterectomy Alexis Gilmore DPM Work Phone: Start: 01-13-2023 Lower limb angiography II Nik Bell Work Phone: Start: 10-17-2022 End: 10-17-2022 Rpr complex retina detach vitrect &membrane peel Trace Ramírez MD, PhD Start: 10-14-2022 End: 10-14-2022 Eylea Sample Drug Trace Ramírez MD, PhD Start: 10-14-2022 End: 10-14-2022 Intravitreal njx pharmacologic agt spx Trace Ramírez MD, PhD Start: 10-14-2022 End: 10-14-2022 Ophthalmic ultrasound dx b-scan w/wo a-scan Trace Ramírez MD, PhD Start: 09-27-2022 End: 09-27-2022 Computerized ophthalmic imaging retina Trace Ramírez MD, PhD Start: 09-27-2022 End: 09-27-2022 Eylea 1mg Pre-filled Syringe Trace kohli MD, PhD Start: 09-27-2022 End: 09-27-2022 Fundus Photos No Charge Bilateral Trace Ramírez MD, PhD Start: 09-27-2022 End: 09-27-2022 Intravitreal njx pharmacologic agt spx Trace Ramírez MD, PhD Start: 07-12-2021 Moira Curyr MD Work Phone: Start: 01-09-2021 End: 01-09-2021 Computerized ophthalmic imaging retina Trace Ramírez MD, PhD Start: 10-10-2020 End: 10-10-2020 Fundus photography w/interpretation & report Trace Ramírez MD, PhD Start: 08-29-2020 End: 08-29-2020 Computerized ophthalmic imaging retina Trace Ramírez MD, PhD Start: 08-29-2020 End: 08-29-2020 Eylea Sample Drug Trace Ramírez MD, PhD Start: 08-29-2020 End: 08-29-2020 Intravitreal njx pharmacologic agt spx Trace Ramírez MD, PhD Start: 08-23-2020 Mammography Alexis Dillon DPM Work Phone: Start: 10-26-2019 End: 10-26-2019 Fluorescein angrph w/multiframe i&r uni/bi Trace Ramírez MD, PhD Start: 10-26-2019 End: 10-26-2019 Treatment extensive retinopathy photocoagulation Trace Ramírez MD, PhD Start: 09-22-2019 End: 09-22-2019 Computerized ophthalmic imaging retina Trace Ramírez MD, PhD Start: 05-05-2019 End: 05-05-2019 Fundus photography w/interpretation & report Trace Ramírez MD, PhD Plan of Treatment Date Care Activity Detail Author Start: 04-01-2034 DTaP/Tdap/Td Vaccines (2 - Td or Tdap) DTaP/Tdap/Td Vaccines (2 - Td or Tdap) [facility] Start: 07-12-2031 Screening for malignant neoplasm of colon [facility] Start: 07-20-2025 End: 07-20-2026 Vascular US Ankle Brachial Index (BRIDGER) Without Exercise Vascular US Ankle Brachial Index (BRIDGER) Without Exercise Vascular Ultrasound Routine PAD (peripheral artery disease) ([facility]) Expected: 07/20/2025 (Approximate), Expires: 07/20/2026 [facility] Service Area Work Phone: Comment on above: Expected: 07/20/2025 (Approximate), Expi res: 07/20/2026 Start: 07-19-2025 End: 07-19-2025 Patient encounter procedure [facility] Start: 07-13-2025 Glaucoma screening Diabetes: Retinopathy Screening [facility] Start: 05-05-2025 Glaucoma screening Diabetes: Retinopathy Screening [facility] Start: 02-15-2025 End: 02-15-2025 Patient encounter procedure 02/15/2025 10:00 AM EDT Office Visit [facility] [address] [place] [id number] Teena Delcid DO [address] [place] [address] [facility] Start: 02-11-2025 Urine screening for protein Diabetes: Urine Protein Screening [facility] Start: 12-23-2024 Hemoglobin A1c measurement Diabetes: Hemoglobin A1C [facility] Start: 12-09-2024 End: 12-09-2024 Patient encounter procedure 12/09/2024 9:20 AM EST Office Visit [facility] [address] [id number] Alexis Gilmore DPM [address] [address] [facility] Start: 12-05-2024 Diabetes mellitus screening Diabetes Screening [facility] Start: 10-15-2024 End: 10-15-2024 Patient encounter procedure [facility] Comment on above: Arrived Start: 09-30-2024 End: 09-30-2024 Patient encounter procedure [facility] Comment on above: Arrived Start: 09-30-2024 End: 09-30-2024 Patient encounter procedure [facility] Comment on above: Dry gangrene (CMS/HCC) (Primary Dx); PVD (peripheral vascular disease) (CMS/HCC); Diabetes mellitus due to underlying condition with diabetic polyneuropathy, unspecified whether senior living insulin use (CMS/HCC); Pain due to onychomycosis of toenails of both feet Start: 09-21-2024 End: 09-21-2024 Patient encounter procedure 09/21/2024 11:50 AM EST Office Visit [facility] [address] [place] [phone] Alexis Gilmore DPM [address] [address] [facility] Start: 09-17-2024 End: 09-17-2024 Patient encounter procedure 09/17/2024 11:50 AM EST Office Visit [facility] [address] [place] [phone] Alexis Gilmore DPM [address] [facility] [place] [address] [facility] Start: 09-17-2024 End: 09-17-2024 Patient encounter procedure 09/17/2024 9:30 AM EST Office Visit [facility] [address] [place] [address] Teena Delcid, DO [address] [place] [address] Arrived [facility] Comment on above: Arrived Start: 09-07-2024 End: 09-07-2024 Patient encounter procedure [facility] Comment on above: Arrived Start: 09-06-2024 End: 09-06-2024 Patient encounter procedure 09/06/2024 9:05 AM EDT Procedure Visit [facility] Teena Delcid, DO [address] [place] [id number] [facility] Start: 08-31-2024 End: 08-31-2024 Patient encounter procedure 08/31/2024 8:45 AM EDT Office Visit [facility] [address] [place] [phone] Teena Delcid, DO [address] [place] [address] [facility] Start: 08-24-2024 End: 08-24-2024 Patient encounter procedure [facility] Comment on above: Arrived Start: 08-23-2024 End: 08-23-2024 Patient encounter procedure 08/23/2024 8:45 AM EDT Procedure Visit [facility] Teena Delcid, DO [address] [place] [address] [facility] Start: 08-04-2024 Marimar Patel 5-6 (5)wks Io Oct Eyl Ou [facility] Work Phone: Start: 07-22-2024 End: 06-21-2026 Vascular US Ankle Brachial Index (BRIDGER) Without Exercise Vascular US Ankle Brachial Index (BRIDGER) Without Exercise Vascular Ultrasound Routine PAD (peripheral artery disease) ([facility]) S/P peripheral artery angioplasty Expected: 07/22/2024 (Approximate), Expires: 06/21/2026 [facility] Work Phone: Comment on above: Expected: 07/22/2024 (Approximate), Expi res: 06/21/2026 Start: 07-20-2024 End: 07-20-[address] [facility] Start: 07-13-2024 End: 07-13-2024 Patient encounter procedure [facility] Comment on above: Arrived Start: 07-11-2024 Influenza vaccination Influenza Vaccine (#1) [facility] Start: 07-09-2024 End: 07-09-2024 Patient encounter procedure 07/09/2024 11:50 AM EDT Office Visit [facility] [address] [place] [address] Alexis Gilmore DPM [address] [address] [address] PVD (peripheral vascular disease) ([facility]) (Primary Dx); Diabetes mellitus due to underlying condition with diabetic polyneuropathy, unspecified whether web services professional insulin use ([facility]); Dry gangrene ([facility]); Onychomycosis; Toe pain, bilateral [facility] Comment on above: PVD (peripheral vascular disease) ([facility]/ [facility]) (Primary Dx); Diabetes mellitus due to underlying condition with diabetic polyneuropathy, unspecified whether web services professional insulin use ([facility]); Dry gangrene ([facility]); Onychomycosis; Toe pain, bilateral Start: 07-02-2024 Hemoglobin A1c measurement Diabetes: Hemoglobin A1C [facility] Start: 05-27-2024 Ultrasound (US) doppler flow mapping of vein of upper limb US venous mapping BI upper [facility] Start: 05-27-2024 US Lower extremity veins - bilateral [facility] Start: 05-27-2024 US scan venography of lower limbs US venous mapping BI lower [facility] Start: 05-27-2024 US Upper extremity vein - bilateral [facility] Start: 05-19-2024 Patient referral [facility] Work Phone: Start: 05-19-2024 [facility] Start: 05-17-2024 Pulse volume recorder pneumoplethysmography US arterial pvr rest LE [facility] Start: 05-17-2024 [facility] Start: 03-03-2024 Hemoglobin A1c measurement Diabetes: Hemoglobin A1C [facility] Start: 02-05-2024 End: 02-05-2024 Patient encounter procedure 02/05/2024 10:10 AM EDT Office Visit [facility] [address] [facility] [address] [place] [address] Alexis Gilmore DPM [id number] [facility] [address] [place] [address] [facility] Start: 12-15-2023 End: 12-15-2023 Patient encounter procedure 12/15/2023 2:30 PM EST Office Visit [facility] [address] [facility] [address] [place] [address] Nik Bell MD [address] [facility] [address] [place] [address] [facility] Start: 07-11-2023 Influenza vaccination Influenza Vaccine (#1) [facility] Start: 07-06-2023 Screening for malignant neoplasm of colon [facility] Start: 01-13-2023 [facility] Start: 01-09-2022 Glaucoma screening Diabetes: Retinopathy Screening [facility] Start: 10-06-2021 Pneumococcal Vaccine: 65+ Years (2 - PCV) Pneumococcal Vaccine: 65+ Years (2 - PCV) [facility] Start: 10-06-2021 Pneumococcal Vaccine: 65+ Years (3 of 3 - PCV) Pneumococcal Vaccine: 65+ Years (3 of 3 - PCV) [facility] Start: 08-23-2021 Screening for malignant neoplasm of breast Mammogram [facility] Start: 01-17-2021 Urine screening for protein Diabetes: Urine Protein Screening [facility] Start: 01-09-2021 Smoking cessation education Tobacco cessation counseling [facility] Start: 10-26-2019 Patient Education Health Information for You: Medline[employer]~ [facility] Work Phone: Start: 2014 RSV patients and/or patients aged 60+ years (1 - 1-dose 60+ series) RSV patients and/or patients aged 60+ years (1 - 1-dose 60+ series) [facility] Start: 1973 Zoster Vaccines (1 of 2) Zoster Vaccines (1 of 2) [facility] Start: 1972 Hepatitis C screening Hepatitis C Screening [facility] Start: 1959 COVID-19 Vaccine (#1) COVID-19 Vaccine (#1) [facility] Start: 1954 Lipid panel Lipid Panel [facility] Start: 1954 Medicare Annual Wellness (AWV) Medicare Annual Wellness (AWV) [facility] Start: 1954 Medicare Annual Wellness Visit Medicare Annual Wellness Visit (AWV) [facility] Start: 1955 Screening for malignant neoplasm of colon [facility] Glucose [Mass/volume ] in Serum or Plasma POCT Glucose Point of Care Testing - Docked Device Routine As needed (Lab) until discontinued starting 06/21/2024 [facility] Service Area Work Phone: Comment on above: As needed (Lab) until discontinued start ing 06/21/2024 Patient Education [facility] Work Phone: Patient referral [facility] Work Phone: US Eye+Orbit - bilateral IOL Bio metry - OU - Both Eyes (CPT 49971) Ophthalmology Routine Pseudophakia Ordered: 10/15/2024 [facility] Work Phone: Comment on above: Ordered: 10/15/2024 US Lower extremity v eins - bilateral [facility] US Upper extremity v ein - bilateral [facility] Vascular US Ankle Br achial Index (BRIDGER) Without Exercise Vascular US Ankle Brachial Index (BRIDGER) Without Exercise Vascular Ultrasound Routine PAD (peripheral artery disease) ([facility]) S/P peripheral artery angioplasty 07/20/2024 4:17 PM EDT [facility] Service Area Work Phone: Immunizations Immunization Date Immunization Notes Care Provider Fa [facility] 09-30-2024 Influenza, High-dose Seasonal, Quadrivalent, Preservative Free Manjula CUEVAS Work Phone: [facility] 04-01-2024 tetanus toxoid, redu ingrid diphtheria toxoid, and acellular pertussis vaccine, adsorbed Alexis Gilmore DPM Work Phone: [facility] 08-28-2022 Influenza, High-dose Seasonal, Quadrivalent, Preservative Free Alexis Gilmore DPM Work Phone: [facility] 08-28-2022 influenza virus vacc ine, unspecified formulation Alexis Gilmore DPM Work Phone: [facility] 09-05-2021 Influenza, Seasonal, Quadrivalent, Adjuvanted Alexis Gilmore DPM Work Phone: [facility] 10-06-2020 influenza, injectabl e, quadrivalent, preservative free Alexis Gilmore DPM Work Phone: [facility] 10-06-2020 pneumococcal polysaccharide vaccine, 23 valent Alexis Gilmore DPM Work Phone: [facility] 10-05-2020 influenza, high dose seasonal, preservative-free Alexis Dillon DPM Work Phone: [facility] 08-10-2019 influenza, high dose seasonal, preservative-free Alexis Gilmore DPM Work Phone: [facility] 08-25-2018 seasonal influenza, intradermal, preservative free Alexis Dillon DPM Work Phone: [facility] 09-24-2017 seasonal influenza, intradermal, preservative free Alexis Gilmore DPM Work Phone: [facility] 09-25-2016 influenza, injectabl e, quadrivalent, preservative free Alexis Brown DPM Work Phone: [facility] 09-25-2016 pneumococcal polysaccharide vaccine, 23 valent Alexis Brown DPM Work Phone: [facility] 10-02-2015 seasonal influenza, intradermal, preservative free Alexis Gilmore DPM Work Phone: [facility] 10-27-2014 influenza, injectabl e, quadrivalent, preservative free Alexis Brown DPM Work Phone: [facility] Payers Date Payer Category Payer [facility] [id number] 2022 Unknown [id number] 2015 Medicare [id number] 1959 Medicare [id number] 1959 Self-pay [id number] 1959 Unknown [id number] 2.16.840.1.004247.19 1959 Unknown [id number] 1954 Unknown [id number] 2.16.840.1.447394.3.579.2 .647 1954 Unknown [id number] 2.16.840.1.231604.3.579.2 .593 1954 Unknown [id number] 2.16.840.1.499851.3.579.2 .593 1954 Unknown [id number] 2.16.840.1.717054.3.579.2 .593 1954 Unknown [id number] 2.16.840.1.162700.3.579.2 .593 1954 Unknown [id number] 2.16.840.1.264149.3.579.2 .593 1954 Unknown [id number] 2.16.840.1.265454.3.579.2 .593 1954 Unknown [id number] 2.16.840.1.778579.3.579.2 .593 1954 Unknown [id number] 2.16.840.1.746291.3.579.2 .593 1954 Unknown [id number] 2.16.840.1.420131.3.579.2 .1244 1954 Unknown [id number] 2.16.840.1.313134.3.579.2 .1244 1954 Unknown [id number] 2.16.840.1.935815.3.579.2 .1245 1954 Unknown [id number] 2.16.840.1.225792.3.579.2 .1245 1954 Unknown [id number] 2.16.840.1.659674.3.579.2 .1245 1954 Unknown [id number] 2.16.840.1.437049.3.579.2 .1245 1954 Unknown [id number] 2.16.840.1.858264.3.579.2 .1347 1954 Unknown [id number] 2.16.840.1.324462.3.579.2 .134 1954 Unknown [id number] 2.16.840.1.202891.3.579.2 .1346 1954 Unknown [id number] 2.16.840.1.565246.3.579.2 .1258 1954 Unknown [id number] 2.16.840.1.879140.3.579.2 .1258 1954 Unknown [id number] 2.16.840.1.732725.3.579.2 .1258 1954 Unknown [id number] 2.16.840.1.298162.3.579.2 .1258 1954 Unknown [id number] 2.840.1.353445.3.579.2 .1258 1954 Unknown [id number] 2.16840.1.409813.3.579.2 .1258 1954 Unknown [id number] 2.16.840.1.085407.3.579.2 .1258 1954 Unknown [id number] 2.840.1.955783.3.579.2 .1258 1954 Unknown [id number] 2.840.1.025876.3.579.2 .1258 1954 Unknown [id number] 2.16.840.1.620573.3.579.2 .125 1954 Unknown [id number] 2.16.840.1.868310.3.579.2 .1258 1954 Unknown [id number] 2.16.840.1.807998.3.579.2 .1258 1954 Unknown [id number] 2.16.840.1.599720.3.579.2 .1258 1954 Unknown [id number] 2.16.840.1.309909.3.579.2 .1259 1954 Unknown [id number] 2.16.840.1.460928.3.579.2 .9 1954 Unknown [id number] 2.16.840.1.015332.3.579.2 .9 1954 Unknown [id number] 2.16.840.1.003141.3.579.2 .1259 1954 Unknown [id number] 2.16.840.1.730254.3.579.2 .1258 1954 Unknown [id number] 2.16.840.1.778974.3.579.2 .1258 1954 Unknown [id number] 2.16.840.1.630237.3.579.2 .9 1954 Unknown [id number] 2.16.840.1.353285.3.579.2 .1259 1954 Unknown [id number] 2.16.840.1.015157.3.579.2 .9 1954 Unknown [id number] 2.16.840.1.280550.3.579.2 .1259 Unknown [id number] 2.16.840.1.588668.3.579.2 .531 Unknown [id number] 2.16.840.1.496229.3.579.2 .531 Unknown [id number] 2.16.840.1.956631.3.579.2 .531 Social History Date Type Detail Facility Start: 12-11-2023 End: 04-01-2024 Sex Assigned At [employer] Other Start: 01-13-2023 End: 06-15-2024 Tobacco smoking status [facility] Never smoked tobacco (finding) [facility] Start: 1955 Sex Assigned At Female [facility] Start: 12-11-2023 End: 12-09-2024 Alcohol intake Lifetime non-drinker (finding) [facility] Start: 12-11-2023 End: 04-01-2024 History of Social function [facility] Start: 1955 Sex Assigned At Not on file [facility] Start: 06-30-2024 Tobacco smoking status [facility] Light tobacco smoker [facility] Start: 06-30-2024 History of tobacco use Light cigarette smoker (1-9 cigs/day) [facility] Start: 06-30-2024 Health-related behavior (observable entity) Caffeine Use Details [facility] Start: 06-30-2024 Tobacco use and exposure Smoking Tobacco Use Details [facility] Start: 05-05-2024 Tobacco smoking status [facility] Ex-smoker [facility] Work Phone: History of tobacco use Current smoker [facility] History of tobacco use Cigarette Smoker [facility] Start: 06-15-2024 Tobacco use and exposure Smokeless tobacco non-user [facility] Work Phone: How often to you hav e a drink containing alcohol? Never [facility] How many standard drinks containing alcohol do you have on a typical day? Patient does not drink [facility] Work Phone: In the past 12 months, was there a time when you were not able to pay the mortgage or rent on time? No [facility] Work Phone: Start: 06-11-2024 End: 07-20-2024 Exposure to SARS-CoV-2 (event) Not sure [facility] NEGATED: Highlighted row Alcohol intake Alcohol Use [facility] Medical Equipment Procedure Code Equipment Code Equipment Origin al Text Equipment Identifier Dates [id number] Start: 12-30-2023 End: 06-21-2024 USE DIRECTED TO ADMINISTER INSULIN TWICE DAILY [id number] Start: 02-02-2024 Goals Date Patient Goal Desired Activity /State Clinical Notes 09-20-2021 to 12-09-2024 Alexis Gilmore DPM - 12/09/2024 9:20 AM Valeria Delcid DO - 10/15/2024 10:15 AM FAITH Stevens - 09/30/2024 10:30 AM Chente Gilmore, DPM - 09/30/2024 9:10 AM EST Note Date & Type Note Facility 12-09-2024 History of Present illness Narrative Patient: Marimar Patel : 1955 PCP: Nik Bell MD SUBJECTIVE Patient presents today with a CC of elongated, thick nails. Pt states nails have been elongated and thick for many years and cause pain with ambulation in shoegear. Pt has tried previous treatment with minimal relief. Pt presents today for nail care and treatment. Patient is DM2 with hx of PVD and [facility] vascular intervention in the past. Patient also complaints of pain to the posterior aspect of the right heel with bony prominence states been present for the past 6 weeks and states it is up to 7/10 at times particularly in shoe gear and denies any trauma to the back of her heel Allergies: Allergies Allergen Reactions Penicillins Hives and Unknown childhood-swelling Past Medical History: Past Medical History: Diagnosis Date A-fib ([facility]) 2022 with RVR Anxiety Aortic stenosis 06/2022 Carotid artery disease ([facility]) Cataract CHF (congestive heart failure) ([facility]) 06/2022 Colon polyp 2016 Diverticulitis DM (diabetes mellitus) ([facility]) HLD (hyperlipidemia) ([facility]) HTN (hypertension) ([facility]) RI (myocardial infarction) ([facility]) NSTEMI, initial episode of care ([facility]) 2022 Retinal hemorrhage Medications: Current Outpatient Medications: albuterol (2.5 MG/3ML) 0.083% nebulizer solution, 3 ml Inhalation 4 times a day and as needed for 6, Disp: , Rfl: amLODIPine (Norvasc) 10 MG tablet, , Disp: , Rfl: apixaban (Eliquis) 5 MG tablet, Take 1 tablet (5 mg) by mouth in the morning and 1 tablet (5 mg) before bedtime., Disp: 200 tablet, Rfl: 1 atorvastatin (Lipitor) 80 MG tablet, TAKE 1 TABLET BY MOUTH EVERY DAY, Disp: 100 tablet, Rfl: 3 carvedilol (Coreg) 25 MG tablet, Take 12.5 mg by mouth in the morning and 12.5 mg before bedtime., Disp: , Rfl: citalopram (CeleXA) 20 MG tablet, Take 1 tablet (20 mg) by mouth Daily, Disp: 100 tablet, Rfl: 2 clopidogrel (Plavix) 75 MG tablet, , Disp: , Rfl: Continuous Blood Gluc Sensor (Dexcom G7 Sensor) misc, 1 Disk Every 10 (ten) days, Disp: 3 each, Rfl: 11 Continuous Glucose Emissions Inspector (Dexcom G7 Emissions Inspector) device, 1 Device yearly, Disp: 1 each, Rfl: 0 dicyclomine (Bentyl) 20 MG tablet, Take 20 mg by mouth 4 (four) times a day as needed., Disp: , Rfl: furosemide (Lasix) 20 MG tablet, Take 60 mg by mouth in the morning., Disp: , Rfl: furosemide (Lasix) 40 MG tablet, TAKE 1 TABLET BY MOUTH EVERY DAY, Disp: 90 tablet, Rfl: 0 gabapentin (Neurontin) 300 MG capsule, Take 1 capsule (300 mg) by mouth in the morning and 1 capsule (300 mg) before bedtime., Disp: 180 capsule, Rfl: 3 hydrALAZINE (Apresoline) 50 MG tablet, , Disp: , Rfl: insulin glargine (Basaglar KwikPen) 100 UNIT/ML pen, Inject 75 Units under the skin at bedtime, Disp: 24 mL, Rfl: 11 insulin pen needle (B-D ULTRAFINE III SHORT PEN) 31G X 8 mm misc, USE DIRECTED EVERY DAY WITH BASAGLAR, Disp: 100 each, Rfl: 3 insulin regular (NovoLIN R) 100 UNIT/ML injection, Inject 0.22 mL (22 Units) under the skin in the morning and 0.22 mL (22 Units) at noon and 0.22 mL (22 Units) in the evening. Inject with meals. Pt has sliding scale so disregard sig., Disp: 40 mL, Rfl: 2 Insulin Syringe 31G X 5/16 1 ML misc, USE DIRECTED TO ADMINISTER INSULIN TWICE DAILY, Disp: 200 each, Rfl: 3 ipratropium-albuterol (Duo-Neb) 0.5-2.5 mg/3 mL nebulizer solution, Take 3 mL by nebulization in the morning and 3 mL in the evening and 3 mL before bedtime., Disp: 180 mL, Rfl: 11 ketorolac (Acular) 0.5 % ophthalmic solution, , Disp: , Rfl: lisinopril 20 MG tablet, Take 20 mg by mouth, Disp: , Rfl: LORazepam (Ativan) 0.5 MG tablet, Take 0.5 mg by mouth every 8 (eight) hours if needed, Disp: , Rfl: potassium chloride CR (Klor-Con M20) 20 MEQ ER tablet, Take 1 tablet (20 mEq) by mouth Daily, Disp: 90 tablet, Rfl: 0 prednisoLONE acetate (Pred-Forte) 1 % ophthalmic suspension, , Disp: , Rfl: spironolactone (Aldactone) 25 MG tablet, Take 25 mg by mouth in the morning., Disp: , Rfl: Social History: Social History Socioeconomic History Marital status: Spouse name: Not on file Number of children: Not on file Years of education: Not on file Highest education level: Not on file Occupational History Not on file Tobacco Use Smoking status: Former Types: Cigarettes Smokeless tobacco: Not on file Vaping Use Vaping status: Unknown Substance and Sexual Activity Alcohol use: Never Drug use: Defer Sexual activity: Defer Partners: Decline to Answer Other Topics Concern Not on file Social History Narrative Not on file Social Drivers of Health Financial Resource Strain: Low Risk (06/22/2024) Received from [facility] Overall Financial Resource Strain (CARDIA) Difficulty of Paying Living Expenses: Not hard at all Food Insecurity: No Food Insecurity (12/03/2023) [facility] Hunger Vital Sign Within the past 12 months, you worried that your food would run out before you got the money to buy more.: Never true Within the past 12 months, the food you bought just didn't last and you didn't have money to get more.: Never true Transportation Needs: No Transportation Needs (06/22/2024) Received from [facility] PRAPARE - Transportation Lack of Transportation (Medical): No Lack of Transportation (Non-Medical): No Physical Activity: Inactive (06/22/2024) Received from [facility] Exercise Vital Sign Days of Exercise per Week: 0 days Minutes of Exercise per Session: 0 min Stress: Stress Concern Present (12/03/2023) Received from [facility], [facility] [employer] of Occupational Health - Occupational Stress Questionnaire Feeling of Stress : To some extent Social Connections: Moderately Isolated (12/03/2023) Received from [facility], [facility] Social Connection and Isolation Panel [NHANES] Frequency of Communication with Friends and Family: More than three times a week Frequency of Social Gatherings with Friends and Family: More than three times a week Attends Sabianist Services: Never Active Member of Clubs or Organizations: No Attends Club or Organization Meetings: Never Marital Status: Intimate Partner Violence: Not At Risk (12/03/2023) Received from [facility], [facility] Humiliation, Afraid, Rape, and Kick questionnaire Fear of Current or Ex-Partner: No Emotionally Abused: No Physically Abused: No Sexually Abused: No Housing Stability: Low Risk (06/22/2024) Received from [facility] Housing Stability Vital Sign Unable to Pay for Housing in the Last Year: No Number of Times Moved in the Last Year: 1 Homeless in the Last Year: No ROS: General: denies fever, chills, fatigue, malaise OBJECTIVE LE EXAM: DERM: Elongated thick yellow crumbly nails digits 1 through 10. Negative hair growth with thin shiny atrophic skin bilaterally Lesion to the medial malleolus of the right ankle has resolved with scar present and negative erythema or drainage Large bony prominence of the posterior right Achilles calcaneal junction lateral aspect of the left foot has scar tissue Rubor to PIPJ regions 2 through 5 bilateral feet VASC: Negative DP and negative PT pedal pulses with warm to cool ibia to toes left and positive edema to left foot. NEURO: 5.07 [place] monofilament test diminished to digits and forefoot bilaterally 125Hz tuning fork diminished to 1st MPJ bilaterally ORTHO: Positive pain on palpation to toenails of the left 1,2,3,4,5 toes and right 1,2,3,4,5 toes Flexion deformities digits 2 through 5 bilateral Positive pain on palpation of right retrocalcaneal bursa and Achilles with negative palpable [facility] REPORT: Verbal order for ultrasound today The achilles tendon of the rightfoot/leg were scanned today with a 12 MHz linear probe in the transverse/sagital planes. Images were obtained. FINDINGS: US examination in the longitudinal and transverse images of the achilles tendon insertion to calcaneus demonstrates a small amount of hypo-echoic density anterior to achilles insertion point on calcaneus. Large calcaneal enthesophyte to posterior right Achilles IMPRESSION: US findings of right Retrocalcaneal bursitis ASSESSMENT 1. Heel spur, right 2. Diabetes mellitus due to underlying condition with diabetic polyneuropathy, unspecified whether senior living insulin use ([facility]) 3. Pain due to onychomycosis of toenails of both feet 4. Onychomycosis 5. PVD (peripheral vascular disease) ([facility]) 6. Achilles tendinitis, right leg 7. Contracture of right ankle PLAN Discussed proper foot care with patient today. Debride nails in length and thickness digits 1 through 10 Patient educated today on proper diabetic foot care including monitoring feet daily for any signs of infection openings in the skin or irregularities to both feet. Patient had a diabetic neurological exam today to both their feet and discussed proper shoe gear. Pt dispensed pneumatic CAM walker ([id number]) today to maintain 90 degree foot to ankle position. Pt informed to only remove walker when at rest or bathing. ABN signed and in chart for device if warranted. The boot was assembled and adjusted liner and straps and pneumatically inflated for proper custom fitting by Alexis Gilmore DPM and staff. A verbal order was given for dispensing of device. The patient is ambulatory and may benefit functionally from this device. It may be used for the following conditions as noted per medical diagnosis. Reviewed ultrasound Pt was given steroid injection to the right retrocalcaneal bursa under US guidance with visualization of injected fluid into area of concern per imaging. Injection consisted of a 2:1 mixture of xylocaine 2%plain and dexathesone 4mg for a total of 3ccs. Informed pt of risks and benefits of procedure including infection,damage or rupture to soft tissue structures and steroid flare. This is the patients 1st injection Pt understood and consented. Alexis Gilmore DPM documented in this encounter [facility] 10-15-2024 History of Present illness Narrative Images from the original note were not included. Assessment/Plan Diagnoses and all orders for this visit: Pseudophakia - s/p CE OS (1mth): Patient should be close to off all post-op meds. Pt. received final refraction for this eye today. documented in this encounter [facility] 09-30-2024 History of Present illness Narrative Images from the original note were not included. Subjective Patient ID: Marimar Patel is a 69 y.o. female who presents for 1wk F/U for asthmatic bronchitis. Marimar presents today for a 1wk F/U for asthmatic bronchitis. At last office visit was Rx'D levofloxacin, medrol dose pack and duo neb. Patient states she is feeling much better. She still has a small cough, but no shortness of breath. She never did get to use the duo neb due to insurance not paying for it. Does periodically check her BP at home. Has been in 130's/60's mostly, occasionally top number is a little higher. Drinks iced tea, at least a quart. Puts ice in the tea. Current Outpatient Medications on File Prior to Visit Medication Sig Dispense Refill albuterol (2.5 MG/3ML) 0.083% nebulizer solution 3 ml Inhalation 4 times a day and as needed for 6 amLODIPine (Norvasc) 10 MG tablet apixaban (Eliquis) 5 MG tablet Take 1 tablet (5 mg) by mouth in the morning and 1 tablet (5 mg) before bedtime. 200 tablet 1 atorvastatin (Lipitor) 80 MG tablet TAKE 1 TABLET BY MOUTH EVERY DAY 100 tablet 3 benzonatate (Tessalon) 200 MG capsule Take 1 capsule (200 mg) by mouth 3 (three) times a day as needed for cough for up to 10 days Do not crush or chew. 30 capsule 0 carvedilol (Coreg) 25 MG tablet Take 12.5 mg by mouth in the morning and 12.5 mg before bedtime. citalopram (CeleXA) 20 MG tablet TAKE 1 TABLET BY MOUTH ONCE DAILY 100 tablet 2 clopidogrel (Plavix) 75 MG tablet Continuous Blood Gluc Sensor (Dexcom G7 Sensor) misc 1 Disk Every 10 (ten) days 3 each 11 Continuous Glucose Emissions Inspector (Dexcom G7 Emissions Inspector) device 1 Device yearly 1 each 0 dicyclomine (Bentyl) 20 MG tablet Take 20 mg by mouth 4 (four) times a day as needed. furosemide (Lasix) 20 MG tablet Take 60 mg by mouth in the morning. furosemide (Lasix) 40 MG tablet TAKE 1 TABLET BY MOUTH EVERY DAY 90 tablet 0 gabapentin (Neurontin) 300 MG capsule Take 1 capsule (300 mg) by mouth in the morning and 1 capsule (300 mg) before bedtime. 180 capsule 3 guaiFENesin-codeine (guaiFENesin AC) 100-10 MG/5ML syrup Take 5 mL by mouth 4 (four) times a day as needed for cough for up to 10 days 120 mL 0 hydrALAZINE (Apresoline) 50 MG tablet insulin glargine (Basaglar KwikPen) 100 UNIT/ML pen Inject 75 Units under the skin at bedtime 24 mL 11 insulin pen needle (B-D ULTRAFINE III SHORT PEN) 31G X 8 mm misc USE DIRECTED EVERY DAY WITH BASAGLAR 100 each 3 insulin regular (NovoLIN R) 100 UNIT/ML injection Inject 0.22 mL (22 Units) under the skin in the morning and 0.22 mL (22 Units) at noon and 0.22 mL (22 Units) in the evening. Inject with meals. Pt has sliding scale so disregard sig. 40 mL 2 Insulin Syringe 31G X 5/16 1 ML misc USE DIRECTED TO ADMINISTER INSULIN TWICE DAILY 200 each 3 ipratropium-albuterol (Duo-Neb) 0.5-2.5 mg/3 mL nebulizer solution Take 3 mL by nebulization in the morning and 3 mL in the evening and 3 mL before bedtime. 180 mL 11 ketorolac (Acular) 0.5 % ophthalmic solution levoFLOXacin (Levaquin) 500 MG tablet Take 1 tablet (500 mg) by mouth Daily for 10 days 10 tablet 0 lisinopril 20 MG tablet Take 20 mg by mouth LORazepam (Ativan) 0.5 MG tablet Take 0.5 mg by mouth every 8 (eight) hours if needed [] methylPREDNISolone (Medrol Dospak) 4 MG tablets Follow schedule on package instructions 21 tablet 0 potassium chloride CR (Klor-Con M20) 20 MEQ ER tablet Take 1 tablet (20 mEq) by mouth in the morning. 90 tablet 0 prednisoLONE acetate (Pred-Forte) 1 % ophthalmic suspension spironolactone (Aldactone) 25 MG tablet Take 25 mg by mouth in the morning. No current facility-administered medications on file prior to visit. I have reviewed and reconciled the history and medication list with the patient today. Allergies Allergen Reactions Penicillins Hives and Unknown childhood-swelling Social History Tobacco Use Smoking status: Former Types: Cigarettes Vaping Use Vaping status: Unknown Substance Use Topics Alcohol use: Never Drug use: Defer Family History Problem Relation Name Age of Onset Diabetes Other Hypertension Other Past Medical History: Diagnosis Date A-fib ([facility]) 2022 with RVR Anxiety Aortic stenosis 06/2022 Carotid artery disease ([facility]) Cataract CHF (congestive heart failure) ([facility]) 06/2022 Colon polyp 2015 Diverticulitis DM (diabetes mellitus) ([facility]) HLD (hyperlipidemia) ([facility]) HTN (hypertension) ([facility]) RI (myocardial infarction) ([facility]) NSTEMI, initial episode of care ([facility]) 2022 Retinal hemorrhage Past Surgical History: Procedure Laterality Date ANGIOPLASTY 01/13/2023 APPENDECTOMY CARDIAC CATHETERIZATION 2009 with stent; Disease: Myocardial Infarction CHOLECYSTECTOMY COLECTOMY 1994 COLONOSCOPY 04/2006 COLONOSCOPY W/ POLYPECTOMY 12/2015 Dr. Paz CORONARY ARTERY BYPASS GRAFT 2012 CT ANGIOGRAM ABDOMEN PELVIS 07/12/[address] CT [address]IOGRAM ABDOMEN PELVIS CT ANGIOGRAM HEART CORONARY 07/06/2022 CT ANGIOGRAM HEART CORONARY 07/12/[address] ANGIOGRAM HEART CORONARY 06/29/2022 CT ANGIOGRAM TAVR EGD 2005 and 2011 HERNIA REPAIR OTHER SURGICAL HISTORY Left Focal laser [place] VITRECTOMY Left for VH TONSILLECTOMY TOTAL ABDOMINAL HYSTERECTOMY W/ BILATERAL SALPINGOOPHORECTOMY Visit Vitals BP (!) 108/48 Pulse 78 Temp 97.6 F Resp 16 Ht 5' 2 Wt 172 lb 9.6 oz SpO2 97% BMI 31.57 kg/m Smoking Status Former BSA 1.85 m Review of Systems Constitutional: Positive for fatigue (Mild). Negative for chills and fever. Respiratory: Positive for cough. Negative for shortness of breath and wheezing. Cardiovascular: Negative for chest pain, palpitations and leg swelling. Gastrointestinal: Negative for abdominal pain, constipation, diarrhea, nausea and vomiting. Skin: Negative for rash. Objective Physical Exam Constitutional: General: She is not in acute distress. Appearance: Normal appearance. She is well-developed. HENT: Head: Normocephalic and atraumatic. Eyes: General: No scleral icterus. Conjunctiva/sclera: Conjunctivae normal. Cardiovascular: Rate and Rhythm: Normal rate and regular rhythm. Heart sounds: Normal heart sounds. No murmur heard. Pulmonary: Effort: Pulmonary effort is normal. No respiratory distress. Breath sounds: Normal breath sounds. No wheezing, rhonchi or rales. Skin: General: Skin is warm and dry. Neurological: General: No focal deficit present. Mental Status: She is alert and oriented to person, place, and time. Psychiatric: Mood and Affect: Mood normal. Behavior: Behavior normal. Assessment/Plan Diagnoses and all orders for this visit: Acute asthmatic bronchitis (CMS/HCC) Lung sounds are clear today. She is feeling much better. Follow up as needed for this concern. Need for vaccination - Influenza, high-dose seasonal, quadrivalent, PF (EKH060) (Fluzone High Dose [place] 0.7mL dose) Afebrile today, and all recent symptoms resolved or improving. Provided pt with Flu shot today. She tolerated this well. Hypotension, unspecified hypotension type Encouraged pt to increase her water intake. Reach out to Cardiology if bottom number of BP runs low Follow up in about 3 months (around 12/31/2024) for Diabetes. documented in this encounter [facility] 09-30-2024 History of Present illness Narrative Patient: Marimar Patel : 1955 PCP: Nik Bell MD SUBJECTIVE Patient presents today for follow-up of complaints of cold and blue toes to the left foot. She has history of almost total occlusion in the past and had procedure in the recent past. She also has complaints of some redness with a black like lesion to her medial malleolar region of the left ankle and denies any drainage denies nausea vomiting chills. Patient states she has been taking oral antibiotics and pain medication for pain to her lower extremity Presents today for follow-up of [place]GER PVRs Patient states she had improvement from seeing this [facility] doctors with intervention and has follow up in the near future Patient was seen in [place] for vascular intervention in the past with hx of DM2 and PVD Patient states continued pain to the region and was to follow up with vascular surgeon at the [facility] and states that she did follow up and had vascular intervention with improvement to her legs and warmth to her legs that point in time Patient presents today with a CC of elongated, thick nails. Pt states nails have been elongated and thick for many years and cause pain with ambulation in shoegear. Pt has tried previous treatment with minimal relief. Pt presents today for nail care and treatment. Patient is DM2 Patient states that her scab like lesion has disappeared do this secondary treatments of were care come to the ulcer and denies nausea vomiting chills Allergies: Allergies Allergen Reactions Penicillins Hives and Unknown childhood-swelling Past Medical History: Past Medical History: Diagnosis Date A-fib ([facility]) 2022 with RVR Anxiety Aortic stenosis 06/2022 Carotid artery disease ([facility]) Cataract CHF (congestive heart failure) ([facility]) 06/2022 Colon polyp 2016 Diverticulitis DM (diabetes mellitus) ([facility]) HLD (hyperlipidemia) ([facility]) HTN (hypertension) ([facility]) RI (myocardial infarction) ([facility]) NSTEMI, initial episode of care ([facility]) 2022 Retinal hemorrhage Medications: Current Outpatient Medications: albuterol (2.5 MG/3ML) 0.083% nebulizer solution, 3 ml Inhalation 4 times a day and as needed for 6, Disp: , Rfl: amLODIPine (Norvasc) 10 MG tablet, , Disp: , Rfl: apixaban (Eliquis) 5 MG tablet, Take 1 tablet (5 mg) by mouth in the morning and 1 tablet (5 mg) before bedtime., Disp: 200 tablet, Rfl: 1 atorvastatin (Lipitor) 80 MG tablet, TAKE 1 TABLET BY MOUTH EVERY DAY, Disp: 100 tablet, Rfl: 3 benzonatate (Tessalon) 200 MG capsule, Take 1 capsule (200 mg) by mouth 3 (three) times a day as needed for cough for up to 10 days Do not crush or chew., Disp: 30 capsule, Rfl: 0 carvedilol (Coreg) 25 MG tablet, Take 12.5 mg by mouth in the morning and 12.5 mg before bedtime., Disp: , Rfl: citalopram (CeleXA) 20 MG tablet, TAKE 1 TABLET BY MOUTH ONCE DAILY, Disp: 100 tablet, Rfl: 2 clopidogrel (Plavix) 75 MG tablet, , Disp: , Rfl: Continuous Blood Gluc Sensor (Dexcom G7 Sensor) misc, 1 Disk Every 10 (ten) days, Disp: 3 each, Rfl: 11 Continuous Glucose Emissions Inspector (Dexcom G7 Emissions Inspector) device, 1 Device yearly, Disp: 1 each, Rfl: 0 dicyclomine (Bentyl) 20 MG tablet, Take 20 mg by mouth 4 (four) times a day as needed., Disp: , Rfl: furosemide (Lasix) 20 MG tablet, Take 60 mg by mouth in the morning., Disp: , Rfl: furosemide (Lasix) 40 MG tablet, TAKE 1 TABLET BY MOUTH EVERY DAY, Disp: 90 tablet, Rfl: 0 gabapentin (Neurontin) 300 MG capsule, Take 1 capsule (300 mg) by mouth in the morning and 1 capsule (300 mg) before bedtime., Disp: 180 capsule, Rfl: 3 guaiFENesin-codeine (guaiFENesin AC) 100-10 MG/5ML syrup, Take 5 mL by mouth 4 (four) times a day as needed for cough for up to 10 days, Disp: 120 mL, Rfl: 0 hydrALAZINE (Apresoline) 50 MG tablet, , Disp: , Rfl: insulin glargine (Basaglar KwikPen) 100 UNIT/ML pen, Inject 75 Units under the skin at bedtime, Disp: 24 mL, Rfl: 11 insulin pen needle (B-D ULTRAFINE III SHORT PEN) 31G X 8 mm misc, USE DIRECTED EVERY DAY WITH BASAGLAR, Disp: 100 each, Rfl: 3 insulin regular (NovoLIN R) 100 UNIT/ML injection, Inject 0.22 mL (22 Units) under the skin in the morning and 0.22 mL (22 Units) at noon and 0.22 mL (22 Units) in the evening. Inject with meals. Pt has sliding scale so disregard sig., Disp: 40 mL, Rfl: 2 Insulin Syringe 31G X 5/16 1 ML misc, USE DIRECTED TO ADMINISTER INSULIN TWICE DAILY, Disp: 200 each, Rfl: 3 ipratropium-albuterol (Duo-Neb) 0.5-2.5 mg/3 mL nebulizer solution, Take 3 mL by nebulization in the morning and 3 mL in the evening and 3 mL before bedtime., Disp: 180 mL, Rfl: 11 ketorolac (Acular) 0.5 % ophthalmic solution, , Disp: , Rfl: levoFLOXacin (Levaquin) 500 MG tablet, Take 1 tablet (500 mg) by mouth Daily for 10 days, Disp: 10 tablet, Rfl: 0 lisinopril 20 MG tablet, Take 20 mg by mouth, Disp: , Rfl: LORazepam (Ativan) 0.5 MG tablet, Take 0.5 mg by mouth every 8 (eight) hours if needed, Disp: , Rfl: methylPREDNISolone (Medrol Dospak) 4 MG tablets, Follow schedule on package instructions, Disp: 21 tablet, Rfl: 0 potassium chloride CR (Klor-Con M20) 20 MEQ ER tablet, Take 1 tablet (20 mEq) by mouth in the morning., Disp: 90 tablet, Rfl: 0 prednisoLONE acetate (Pred-Forte) 1 % ophthalmic suspension, , Disp: , Rfl: spironolactone (Aldactone) 25 MG tablet, Take 25 mg by mouth in the morning., Disp: , Rfl: Social History: Social History Socioeconomic History Marital status: Spouse name: Not on file Number of children: Not on file Years of education: Not on file Highest education level: Not on file Occupational History Not on file Tobacco Use Smoking status: Former Types: Cigarettes Smokeless tobacco: Not on file Vaping Use Vaping status: Unknown Substance and Sexual Activity Alcohol use: Never Drug use: Defer Sexual activity: Defer Partners: Decline to Answer Other Topics Concern Not on file Social History Narrative Not on file Social Drivers of Health Financial Resource Strain: Low Risk (06/22/2024) Received from [facility] Overall Financial Resource Strain (CARDIA) Difficulty of Paying Living Expenses: Not hard at all Food Insecurity: No Food Insecurity (12/03/2023) [facility] Hunger Vital Sign Within the past 12 months, you worried that your food would run out before you got the money to buy more.: Never true Within the past 12 months, the food you bought just didn't last and you didn't have money to get more.: Never true Transportation Needs: No Transportation Needs (06/22/2024) Received from [facility] PRAPARE - Transportation Lack of Transportation (Medical): No Lack of Transportation (Non-Medical): No Physical Activity: Inactive (06/22/2024) Received from [facility] Exercise Vital Sign Days of Exercise per Week: 0 days Minutes of Exercise per Session: 0 min Stress: Stress Concern Present (12/03/2023) Received from [facility], [facility] [employer] - Occupational Stress Questionnaire Feeling of Stress : To some extent Social Connections: Moderately Isolated (12/03/2023) Received from [facility], [facility] Social Connection and Isolation Panel [NHANES] Frequency of Communication with Friends and Family: More than three times a week Frequency of Social Gatherings with Friends and Family: More than three times a week Attends Sabianist Services: Never Active Member of Clubs or Organizations: No Attends Club or Organization Meetings: Never Marital Status: Intimate Partner Violence: Not At Risk (12/03/2023) Received from [facility], [facility] Humiliation, Afraid, Rape, and Kick questionnaire Fear of Current or Ex-Partner: No Emotionally Abused: No Physically Abused: No Sexually Abused: No Housing Stability: Low Risk (06/22/2024) Received from [facility] Housing Stability Vital Sign Unable to Pay for Housing in the Last Year: No Number of Times Moved in the Last Year: 1 Homeless in the Last Year: No ROS: General: denies fever, chills, fatigue, malaise OBJECTIVE LE EXAM: DERM: Elongated thick yellow crumbly nails digits 1 through 10. Negative hair growth with thin shiny atrophic skin bilaterally Lesion to the medial malleolus of the right ankle has resolved with scar present and negative erythema or drainage Notable toes 1 through 5 left ruborous with changed from blue hue on previous visits due to vascular intervention lateral aspect of the left foot has scar tissue Rubor to PIPJ regions 2 through 5 bilateral feet VASC: Negative DP and negative PT pedal pulses with warm to cool ibia to toes left and positive edema to left foot. NEURO: 5.07 [place] monofilament test diminished to digits and forefoot bilaterally 125Hz tuning fork diminished to 1st MPJ bilaterally ORTHO: Positive pain on palpation nails 1 through 10 Flexion deformities digits 2 through 5 bilateral ASSESSMENT 1. Dry gangrene ([facility]) 2. PVD (peripheral vascular disease) ([facility]) 3. Diabetes mellitus due to underlying condition with diabetic polyneuropathy, unspecified whether senior living insulin use ([facility]) 4. Pain due to onychomycosis of toenails of both feet PLAN Discussed proper foot care with patient today. [place] nails in length and thickness digits 1 through 10 Patient educated today on proper diabetic foot care including monitoring feet daily for any signs of infection openings in the skin or irregularities to both feet. Patient had a diabetic neurological exam today to both their feet and discussed proper shoe gear. Alexis Gilmore DPM documented in this encounter [facility] 09-22-2024 History of Present illness Narrative Images from the original note were not included. Subjective Patient ID: Marimar Patel is a 69 y.o. female who presents for Diabetes. Pt has a cough for about three weeks , cough drops dayquil nyquil pt will cough to the point she as a sharp pain in her lower right side, pt has phlegm clear some brown,chest hurting, headaches, Pt forgot to take her medication today Diabetes She presents for her follow-up diabetic visit. She has type 2 diabetes mellitus. Her disease course has been stable. There are no hypoglycemic associated symptoms. There are no diabetic associated symptoms. There are no hypoglycemic complications. Symptoms are stable. Diabetic complications include nephropathy. Risk factors for coronary artery disease include diabetes mellitus. Current diabetic treatment includes insulin injections. She is compliant with treatment all of the time. Current Outpatient Medications on File Prior to Visit Medication Sig Dispense Refill amLODIPine (Norvasc) 10 MG tablet hydrALAZINE (Apresoline) 50 MG tablet ketorolac (Acular) 0.5 % ophthalmic solution lisinopril 20 MG tablet Take 20 mg by mouth prednisoLONE acetate (Pred-Forte) 1 % ophthalmic suspension albuterol (2.5 MG/3ML) 0.083% nebulizer solution 3 ml Inhalation 4 times a day and as needed for 6 apixaban (Eliquis) 5 MG tablet Take 1 tablet (5 mg) by mouth in the morning and 1 tablet (5 mg) before bedtime. 200 tablet 1 atorvastatin (Lipitor) 80 MG tablet TAKE 1 TABLET BY MOUTH EVERY DAY 100 tablet 3 carvedilol (Coreg) 25 MG tablet Take 12.5 mg by mouth in the morning and 12.5 mg before bedtime. citalopram (CeleXA) 20 MG tablet TAKE 1 TABLET BY MOUTH ONCE DAILY 100 tablet 2 clopidogrel (Plavix) 75 MG tablet Continuous Blood Gluc Sensor (Dexcom G7 Sensor) misc 1 Disk Every 10 (ten) days 3 each 11 Continuous Glucose Emissions Inspector (Dexcom G7 Emissions Inspector) device 1 Device yearly 1 each 0 dicyclomine (Bentyl) 20 MG tablet Take 20 mg by mouth 4 (four) times a day as needed. furosemide (Lasix) 20 MG tablet Take 60 mg by mouth in the morning. furosemide (Lasix) 40 MG tablet TAKE 1 TABLET BY MOUTH EVERY DAY 90 tablet 0 gabapentin (Neurontin) 300 MG capsule Take 300 mg by mouth in the morning and 300 mg before bedtime. insulin glargine (Lantus) 100 UNIT/ML injection Inject 40 Units under the skin at bedtime 10 mL 12 insulin pen needle (B-D ULTRAFINE III SHORT PEN) 31G X 8 mm misc USE DIRECTED EVERY DAY WITH BASAGLAR 100 each 3 insulin regular (NovoLIN R) 100 UNIT/ML injection INJECT DIRECTED UNDER THE SKIN PER SLIDING SCALE WITH MAX OF 22 UNITS PER DAY 40 mL 2 Insulin Syringe 31G X 5/16 1 ML misc USE DIRECTED TO ADMINISTER INSULIN TWICE DAILY 200 each 3 LORazepam (Ativan) 0.5 MG tablet Take 0.5 mg by mouth every 8 (eight) hours if needed potassium chloride CR (Klor-Con M20) 20 MEQ ER tablet Take 1 tablet (20 mEq) by mouth in the morning. 90 tablet 0 spironolactone (Aldactone) 25 MG tablet Take 25 mg by mouth in the morning. No current facility-administered medications on file prior to visit. I have reviewed and reconciled the history and medication list with the patient today. Allergies Allergen Reactions Penicillins Hives and Unknown childhood-swelling Social History Tobacco Use Smoking status: Former Types: Cigarettes Vaping Use Vaping status: Unknown Substance Use Topics Alcohol use: Never Drug use: Defer Family History Problem Relation Name Age of Onset Diabetes Other Hypertension Other Past Medical History: Diagnosis Date A-fib ([facility]) 2022 with RVR Anxiety Aortic stenosis 06/2022 Carotid artery disease ([facility]) Cataract CHF (congestive heart failure) ([facility]) 06/2022 Colon polyp 2016 Diverticulitis DM (diabetes mellitus) ([facility]) HLD (hyperlipidemia) ([facility]) HTN (hypertension) ([facility]) RI (myocardial infarction) ([facility]) NSTEMI, initial episode of care ([facility]) 2022 Retinal hemorrhage Past Surgical History: Procedure Laterality Date ANGIOPLASTY 01/13/2023 APPENDECTOMY CARDIAC CATHETERIZATION 2009 with stent; Disease: Myocardial Infarction CHOLECYSTECTOMY COLECTOMY 1994 COLONOSCOPY 04/2006 COLONOSCOPY W/ POLYPECTOMY 12/2015 Dr. Paz CORONARY ARTERY BYPASS GRAFT 2012 CT ANGIOGRAM ABDOMEN PELVIS 07/12/[address] ABDOMEN PELVIS CT ANGIOGRAM HEART CORONARY 07/06/2022 CT ANGIOGRAM HEART CORONARY 07/12/[address] ANGIOGRAM HEART CORONARY 06/29/2022 CT ANGIOGRAM TAVR EGD 2005 and 2011 HERNIA REPAIR OTHER SURGICAL HISTORY Left Focal laser [place] VITRECTOMY Left for VH TONSILLECTOMY TOTAL ABDOMINAL HYSTERECTOMY W/ BILATERAL SALPINGOOPHORECTOMY Visit Vitals Smoking Status Former Review of Systems Constitutional: Positive for fever. HENT: Positive for congestion. Respiratory: Positive for cough, shortness of breath and wheezing. Gastrointestinal: Negative. Genitourinary: Negative. Musculoskeletal: Negative. Neurological: Negative. Psychiatric/Behavioral: Negative. Objective Physical Exam Vitals reviewed. Constitutional: Appearance: She is ill-appearing. HENT: Head: Normocephalic. Right Ear: Tympanic membrane normal. Left Ear: Tympanic membrane normal. Nose: Nose normal. Mouth/Throat: Mouth: Mucous membranes are moist. Pharynx: Oropharynx is clear. Eyes: Conjunctiva/sclera: Conjunctivae normal. Cardiovascular: Rate and Rhythm: Normal rate and regular rhythm. Heart sounds: Normal heart sounds. Pulmonary: Breath sounds: Wheezing present. Comments: Productive cough Skin: General: Skin is warm and dry. Neurological: General: No focal deficit present. Mental Status: She is alert and oriented to person, place, and time. Psychiatric: Mood and Affect: Mood normal. Behavior: Behavior normal. Assessment/Plan Diagnoses and all orders for this visit: Acute asthmatic bronchitis ([facility]) - levoFLOXacin (Levaquin) 500 MG tablet; Take 1 tablet (500 mg) by mouth Daily for 10 days - methylPREDNISolone (Medrol Dospak) 4 MG tablets; Follow schedule on package instructions - ipratropium-albuterol (Duo-Neb) 0.5-2.5 mg/3 mL nebulizer solution; Take 3 mL by nebulization in the morning and 3 mL in the evening and 3 mL before bedtime. Start the above medications as directed. Advised of potential side effects of the steroid. Patient is to take the steroid with food. Can take Tessalon Perles prn for cough. Increase water intake, get plenty of rest. Can take Tylenol prn for any discomfort or fever. No other anti-inflammatories while on steroid. Cough into elbow. Wash hands often. Advised patient that cough can linger with bronchitis. Follow up in our office if no improvement in one week. Type 2 diabetes mellitus with hyperglycemia, with long-term current use of insulin ([facility]) - POCT Glycated hemoglobin, total - insulin glargine (Lantus) 100 UNIT/ML injection; Inject 75 Units under the skin at bedtime - insulin regular (NovoLIN R) 100 UNIT/ML injection; Inject 0.22 mL (22 Units) under the skin in the morning and 0.22 mL (22 Units) at noon and 0.22 mL (22 Units) in the evening. Inject with meals. Pt has sliding scale so disregard sig. Lantus increased to 75 units. She had been on 86 units previously when she went into the hospital. We discussed today, the importance of proper diabetic control. We discussed possible complications of diabetes, including loss of vision, renal failure, increased risk of heart attacks and strokes, blood vessel and/or nerve damage. We discussed the recommended changes to reduce your blood sugars and minimize the risk of these complications. We discussed diabetic goals, including keeping A1C <7.0% and blood pressure < 130/70. The plan for achieving these goals is adherence to medications, diet, and regular activity as discussed during today's visit. We discussed current barriers to achieving these goals. We discussed dietary goals. We discussed calorie counting, as well as decreasing carbohydrate and simple sugar intake. Reviewed portion control with the patient. If the patient still has questions on this, a referral to a Dietitian can be arranged. I reviewed medications that aid in diabetic control. We discussed proper dosing and educated the patient on possible side effects and complications. The patient verbalized understanding of these instructions. Polyneuropathy due to type 2 diabetes mellitus (CMS/HCC) - gabapentin (Neurontin) 300 MG capsule; Take 1 capsule (300 mg) by mouth in the morning and 1 capsule (300 mg) before bedtime. This is a chronic medical condition that is stable since last assessment. No changes in treatment are suggested at this time. Acute cough - benzonatate (Tessalon) 200 MG capsule; Take 1 capsule (200 mg) by mouth 3 (three) times a day as needed for cough for up to 10 days Do not crush or chew. - guaiFENesin-codeine (guaiFENesin AC) 100-10 MG/5ML syrup; Take 5 mL by mouth 4 (four) times a day as needed for cough for up to 10 days May use cough drops, drink warm liquids. Do not use the cough syrup when driving or operating equipment as it can make you tired. You can use the Tessalon Perles during the day. No follow-ups on file. documented in this encounter [facility] 09-07-2024 History of Present illness Narrative Images from the original note were not included. Assessment/Plan Diagnoses and all orders for this visit: Pseudophakia - s/p CE OS (POD #1): Patient provided with post-op form. Instructed to continue drops as well as shield. Instructed to call immediately with increased pain, redness, decreased vision, questions or concerns. documented in this encounter [facility] 08-31-2024 History of Present illness Narrative Images from the original note were not included. Assessment/Plan Diagnoses and all orders for this visit: Pseudophakia - s/p CE OD (POD #7): Patient provided with post-op form. Instructed to continue drops. Discontinue eye shield. Instructed to call immediately with increased pain, redness, decreased vision, questions or concerns. Cataract mature, total senile - Visually Significant Cataract, OU: I discussed the risks, benefits, alternatives, and expectations of cataract surgery. A complete ophthalmic exam was performed and it was determined that the cataracts were a primary source of vision decline, affecting activities of daily living, necessitating removal. Limited vision post-surgery may occur with pre-existing conditions affecting other areas of the eye or the brain was explained and the patient displayed an understanding. The overall objective is to improve ADLs, not eliminate glasses or restore vision to 20/20. Tests were reviewed - the different lens options were explained including the lis-en-mwivns fees for any upgrades. Intraocular lens (IOL) selection may be altered either prior to or during the procedure based on the doctor's discretion including reverting to a traditional intraocular lens (IOL). They understood that there will exist the potential of glasses prescription need post surgery for near, distance or possibly both. The patient stated a full understanding and a desire to proceed with the procedure. The patient received cataract measurements and had any additional questions answered. - A complete exam was performed including a physical exam: General: AAOx3 and NAD, Lungs: Clear, Heart: RRR, Abdomen: S/NT/ND, Extremities: no pitting edema. documented in this encounter [facility] 08-18-2024 Note Patient here for 3 m o follow up aortic valve stenosis s/p TAVR, CAD, PAF, and PAD. She underwent vascular surgery at in Jun 2024. No labs since then. Denies chest pain, SOB, palpitations, and bleeding on Eliquis. Review of Systems Cardiovascular: Positive for leg swelling (LLE, resolves by morning). Neurological: Positive for numbness. All other systems reviewed and are negative. [facility] 08-18-2024 Note Cardiovascular Medic [facility] SUBJECTIVE Chief Complaint Patient presents with Coronary Artery Disease Atrial Fibrillation Valve Disorder Peripheral Vascular Disease Marimar Patel is a 69 y.o. female here for follow-up. HPI PMHx: CAD hx of bypass, PAF, PAD s/p LLE angiogram, SFA/pop atherectomy/stenting (11/2023) , aortic valve stenosis s/p TAVR 06/21/2024, status post successful revascularization using directional atherectomy_PTA_DCB to entire left SFA and popliteal with good results by Dr. Curyr. She has some FERNANDEZ with heavier exertion. This is unchanged for her. Denies c/o CP, orthopnea, PND, LE edema, dizziness/LH, palpitations, syncope. She is pending eye surgery. Both eye needs a new lens, one eye needs a new cataract. Patient Active Problem List Diagnosis Nonrheumatic aortic valve stenosis Coronary artery disease involving [place] coronary artery of [place] heart with angina pectoris ([facility]) PAF (paroxysmal atrial fibrillation) ([facility]) Essential hypertension PAD (peripheral artery disease) ([facility]) Numbness of left lower extremity Acute asthmatic bronchitis Asthma without status asthmaticus Acute combined systolic and diastolic heart failure ([facility]) Arteriosclerosis of arterial coronary artery bypass graft Atrophic gastritis Cataract mature, total senile Chest pain Chondrocalcinosis Chronic ulcer of left foot with fat layer exposed ([facility]) Dehiscence of operative wound Diabetes mellitus ([facility] Diabetic foot ulcer ([facility]) Diverticulosis of colon Dry gangrene ([facility]) Estrogen deficiency Generalized anxiety disorder History of hysterectomy IBS (irritable bowel syndrome) Migraine Hypercholesterolemia Infection of bone ([facility]) Osteopenia Overweight Pain in soft tissues of limb Polyneuropathy due to type 2 diabetes mellitus ([facility]) Poorly controlled diabetes mellitus ([facility]) Proliferative diabetic retinopathy associated with type 2 diabetes mellitus ([facility]) 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 associated with type 2 diabetes mellitus ([facility]) Staphylococcal infectious disease Type 2 diabetes mellitus with hyperglycemia ([facility]) Type 2 diabetes mellitus without complication ([facility]) Vitreous hemorrhage of right eye ([facility]) Past Medical History: Diagnosis Date A-fib ([facility]) Aortic valve stenosis Coronary artery disease Diabetes mellitus ([facility]) Hypertension Peripheral vascular disease ([facility]) Family History Problem Relation Name Age of Onset Diabetes Mother Cancer Mother Heart disease Father Alcohol abuse Brother Diabetes Brother Social History Tobacco Use Smoking status: Former Types: Cigarettes Smokeless tobacco: Never Vaping Use Vaping Use: Never used Substance Use Topics Alcohol use: Never Drug use: Never Allergies Allergen Reactions Penicillin Hives Penicillins Hives and Unknown childhood-swelling ROS Cardiovascular: Positive for leg swelling (LLE, resolves by morning). Neurological: Positive for numbness. All other systems reviewed and are negative. OBJECTIVE Visit Vitals BP 144/86 (BP Location: Right arm, Patient Position: Sitting) Pulse 74 Ht 1.575 m (5' 2 ) Wt 77.1 kg (170 lb) SpO2 97% BMI 31.09 kg/m??? OB Status Postmenopausal Smoking Status Former BSA 1.84 m??? Medications: Current Outpatient Medications: amLODIPine (Norvasc) 10 mg tablet, Take 1 tablet (10 mg) by mouth in the morning., Disp: 90 tablet, Rfl: 3 apixaban (ELIQUIS ORAL), Take 5 mg by mouth in the morning and at bedtime., Disp: , Rfl: atorvastatin (Lipitor) 80 mg tablet, Take 80 mg by mouth in the morning., Disp: , Rfl: citalopram (CeleXA) 20 mg tablet, Take 20 mg by mouth in the morning., Disp: , Rfl: clopidogrel (Plavix) 75 mg tablet, Take 1 tablet (75 mg) by mouth once daily as directed., Disp: 90 tablet, Rfl: 3 furosemide (Lasix) 20 mg tablet, Take 1 tablet (20 mg) by mouth in the morning. To be taken with 40 mg lasix for a total of 60 mg daily (Patient taking differently: Take 60 mg by mouth in the morning. To be taken with 40 mg lasix for a total of 60 mg daily), Disp: 90 tablet, Rfl: 3 gabapentin (Neurontin) 300 mg capsule, Take 300 mg by mouth twice a day., Disp: , Rfl: hydrALAZINE (Apresoline) 50 mg tablet, Take 1 tablet (50 mg) by mouth in the morning and at bedtime., Disp: 180 tablet, Rfl: 3 insulin glargine (Lantus) 100 unit/mL injection, Inject 80 Units under the skin at bedtime., Disp: , Rfl: insulin regular (HumuLIN R,NovoLIN R) 100 unit/mL injection, Inject 2-22 Units under the skin with breakfast, with lunch, and with evening meal. Sliding scale with mas of 22units, Disp: , Rfl: lisinopril 20 mg tablet, Take 1 tablet (20 mg) by mouth once daily as directed., Disp: 90 tablet, Rfl: 3 potassium chloride CR (Klor-Con M10) 10 mEq ER tablet, Take 20 mEq by west (more content not included)... [facility] 07-20-2024 History of Present illness Narrative Images from the original note were not included. [facility] Note Referring Provider: Navi Conklin DO PCP: No primary care provider on file. Cost Control Analyst: Alexis Gilmore DPM CC: 1 month post procedure FU Subjective HPI: Marimar Patel is 69 y.o. female with history of HTN, CAD s/p CABG (2012), LHC in 2021 showed no targets for revascularization with patent 3/4 bypass graft, IDDM, Afib (on Eliquis), aortic stenosis s/p TAVR (09/2022), PAD s/p LLE angiogram, SFA/pop atherectomy/stenting (12/04/2023) who is being referred by Dr. Thomason for management of PAD with non-healing left great toe and heel ulcers 8-9 months. Since then the ulcers healed and her pain improved. She then developed new ulcer on 2nd toe and left medial malleolus. Minimal edema of lower extremities. She had left foot rest pain, tissue loss and <100 ft claudication. BRIDGER/TBI (06/15/2024): Right 0.52/0.43 Left 0/0. 06/21/2024, status post successful revascularization using directional atherectomy_PTA_DCB to entire left SFA and popliteal with good results by Dr. Curry. Pt discharge to home to continue Plavix and Eliquis. Pt is here for 1 month post procedure FU with repeat testing. Pt reports resolution of her leg pain and now able to walk in the grocery store without needing scooter to get around. She is very happy with the outcome of her procedure. She continue to increase the distance she ambulates. Has been compliant with Plavix and Eliquis. No other complaints today. Past Vascular History: 12/04/23: LLE angiogram, jet stream atherectomy, WARDROBE COORDINATOR and stenting of SFA/pop (Dr. Padilla) for tissue loss Past Vascular Testing: BRIDGRE/TBI (06/15/2024): Right 0.52/0.43 Left 0/0 PMH/PSH: HTN, CAD s/p CABG (2012), IDDM, Afib (on Eliquis), aortic stenosis s/p TAVR (09/2022), PAD s/p LLE angiogram, SFA/pop atherectomy/stenting (11/2023) Home Meds: Current Outpatient Medications on File Prior to Visit Medication Sig Dispense Refill acetaminophen (Tylenol 8 HOUR) 650 mg ER tablet Take 2 tablets (1,300 mg) by mouth every 8 hours if needed for mild pain (1 - 3). Do not crush, chew, or split. albuterol 2.5 mg /3 mL (0.083 %) nebulizer solution Take 3 mL (2.5 mg) by nebulization 4 times a day as needed for wheezing or shortness of breath. amLODIPine (Norvasc) 10 mg tablet Take 1 tablet (10 mg) by mouth once daily. atorvastatin (Lipitor) 80 mg tablet Take 1 tablet (80 mg) by mouth once daily. Basaglar KwikPen U-100 Insulin 100 unit/mL (3 mL) pen Inject 50 Units under the skin once daily at bedtime. BD Ultra-Fine Short Pen Needle 31 gauge x 5/16 needle USE DIRECTED EVERY DAY WITH BASAGLAR carvedilol (Coreg) 25 mg tablet Take 0.5 tablets (12.5 mg) by mouth every 12 hours. citalopram (CeleXA) 20 mg tablet Take 1 tablet (20 mg) by mouth 2 times a day. clopidogrel (Plavix) 75 mg tablet Take 1 tablet (75 mg) by mouth once daily. Eliquis 5 mg tablet Take 1 tablet (5 mg) by mouth every 12 hours. furosemide (Lasix) 20 mg tablet Take 1 tablet (20 mg) by mouth once daily. (Take with 40mg tablet for total dose of 60mg) furosemide (Lasix) 40 mg tablet Take 1 tablet (40 mg) by mouth once daily in the morning. Take before meals. gabapentin (Neurontin) 300 mg capsule Take 2 capsules (600 mg) by mouth 2 times a day. hydrALAZINE (Apresoline) 50 mg tablet Take 1 tablet (50 mg) by mouth twice a day. lisinopril 20 mg tablet Take 1 tablet (20 mg) by mouth once daily. NovoLIN R Regular U100 Insulin 100 unit/mL injection INJECT DIRECTED UNDER THE SKIN PER SLIDING SCALE WITH MAX OF 22 UNITS DAILY ondansetron ODT (Zofran-ODT) 4 mg disintegrating tablet Take 1 tablet (4 mg) by mouth every 8 hours if needed for nausea or vomiting. potassium chloride CR 20 mEq ER tablet Take 1 tablet (20 mEq) by mouth once daily. No current facility-administered medications on file prior to visit. Allergies: Allergies Allergen Reactions Penicillins Hives, Other and Unknown childhood-swelling SH/FH: past smoker ROS: 12 system negative except HPI Objective Vitals: Vitals: 07/20/24 1614 BP: 171/80 Pulse: Resp: Physical Exam: Constitutional: NAD, very pleasant, cooperative Skin: Warm and dry Extremities: motor function intact, left foot improved sensation at the plantar site, trace edema, small wound at the medial malleolus healed. Pulses Dopplerable( PT, DP, AT) Neuro: non-focal, awake/alert/oriented x3, Psychological: Appropriate mood and behavior Vascular Studies Vascular US Ankle Brachial Index (BRIDGER) Without Exercise 07/20/2024 Patient Name: MARIMAR PAETL Reading Physician: [id number] Nury Blackwell MD, RPVI Study Date: 07/20/2024 Ordering Physician: [id number] TERRI SOSA MRN/PID: [id number] Technologist: Chanda Martinez Zenon Technologist 2: Date of /Age: 8 1955 / 69 years Gender: F Admission Status: Outpatient Location Performed: [facility] Diagnosis/ICD: Peripheral vascular disease, unspecified-I73.9 CPT Codes: 67693 Peripheral artery BRIDGER Only CONCLUSIONS: Right Lower PVR: Evidence of moderate arterial occlusive disease in the right lower extremity at rest. Decreased digital perfusion noted. Multiphasic flow is noted in the right common femoral artery, right posterior tibial artery and right dorsalis pedis artery. Left Lower PVR: Evidence of mild arterial occlusive disease in the left lower extremity at rest. Decreased digital perfusion noted. Multiphasic flow is noted in the left common femoral artery, left posterior tibial artery and left dorsalis pedis artery. Comparison: Compared with study from 06/15/2024, Improvement of left BRIDGER is noted after procedure done 06/21/2024. Imaging & Doppler Findings: RIGHT Lower PVR Pressures Ratios Right Posterior Tibial (Ankle) 123 mmHg 0.67 Right Dorsalis Pedis (Ankle) 100 mmHg 0.54 Right Digit (Great Toe) 24 mmHg 0.13 LEFT Lower PVR Pressures Ratios Left Posterior Tibial (Ankle) 108 mmHg 0.59 Left Dorsalis Pedis (Ankle) 132 mmHg 0.72 Left Digit (Great Toe) 59 mmHg 0.32 Right Left Brachial Pressure 175 mmHg 184 mmHg [id number] Nury Blackwell MD, RPVI Assessment/Plan Marimar Patel is 69 y.o. female with h/o PAD s/p LLE angiogram, SFA/pop atherectomy/stenting (12/04/2023) who is being referred by Dr. Thomason for management of PAD with non-healing left great toe and heel ulcers 8-9 months. Since then the ulcers healed and her pain improved. She then developed new ulcer on 2nd toe and left medial malleolus. Minimal edema of lower extremities. She had left foot rest pain, tissue loss and <100 ft claudication. BRIDGER/TBI (06/15/2024): Right 0.52/0.43 Left 0/0. 06/21/2024, status post successful revascularization using directional atherectomy_PTA_DCB to entire left SFA and popliteal with good results by Dr. Curry. Pt is here for 1 month post procedure FU with repeat testing. Post Procedure BRIDGER/TBI today: Right 0.67/0.13 Left 0.72/0.32 (BRIDGER/TBI (06/15/2024): Right 0.52/0.43 Left 0/0) Significant improvement seen in the left leg now with mild PAD from severe and improved digital perfusion from 0 to 0.13 Pt symptoms have completely resolved and she is able to complete her daily activities with minimal discomfort. She had a very small left ankle wound which is now healed and scabbed over. Vascular result discussed with pt in detail. Plan: - At this time no additional intervention needed as Pt symptoms resolved and wound healed. - Continue take Plavix and Eliquis for at least 6 month . Continue aggressive risk factor modifications with diet, exercise (walking to improve collateral blood flow) and foot protection. - Continue to do wound care. Strict Control blood sugar goal A1c 6 or lower recommended. . - Pt wanted to FU with her local vascular doctor in 6 month as this is a long way for her, which is ok. - Return to our clinic for FU in 1 year with testing ordered or sooner if needed ESTELLA Strong documented in this encounter [facility] Work Phone: 07-20-2024 Instructions ESTELLA Strong - 07/20/2024 3:30 PM EDT Thank you for coming to see us in the [facility] today. We have reviewed your vascular testing and you blood flow has significantly improved on your left side, Continue take Plavix and Eliquis .Continue aggressive risk factor modifications with diet, exercise (walking to improve collateral blood flow) and foot protection. FU with your local vascular doctor in 6 month Continue to do wound care. Strict Control blood sugar goal A1c 6 or lower. Return to clinic in 1 year with testing or sooner if needed If you have any questions or concerns please give us a call at [phone] option 1 documented in this encounter [facility] Work Phone: 07-13-2024 History of Present illness Narrative Images from the original note were not included. Subjective Patient ID: Marimar Patel is a 69 y.o. female. Chief Complaint Cataract HPI Cataract In both eyes. Associated symptoms include blurred vision. Onset was gradual. Duration of years. Frequency is constant. Context: distance vision, mid-range vision, near vision, reading, watching TV, computer work, driving, night driving and dim lighting. Since onset it is gradually worsening. Affected activities include reading, working on the computer, driving, night driving, watching TV and daily activities. Comments Cataract extraction (CE) eval for pt with history of Vitreous hemorrhage right eye (OD). Using OTC drops prn. Couldn't auto refract left eye (OS) No PM or defib No latex allergy No Flomax Last edited by LIZ DESIR on 07/13/2024 1:12 PM. Current Outpatient Medications (Ophthalmic Agents) Medication Sig Dispense Refill ketorolac (Acular) 0.5 % ophthalmic solution Administer 1 drop into affected eye(s) in the morning and 1 drop before bedtime. 5 mL 1 ofloxacin (Ocuflox) 0.3 % ophthalmic solution Administer 1 drop into the right eye 5 (five) times a day for 1 day Starting 1 day before surgery, continue after surgery as directed 5 mL 1 prednisoLONE acetate (Pred-Forte) 1 % ophthalmic suspension Administer 1 drop into both eyes in the morning and 1 drop at noon and 1 drop in the evening and 1 drop before bedtime. Do all this for 14 days. 5 mL 1 No current facility-administered medications for this visit. (Ophthalmic Agents) Current Outpatient Medications (Other) Medication Sig Dispense Refill albuterol (2.5 MG/3ML) 0.083% nebulizer solution 3 ml Inhalation 4 times a day and as needed for 6 apixaban (Eliquis) 5 MG tablet Take 1 tablet (5 mg) by mouth in the morning and 1 tablet (5 mg) before bedtime. 200 tablet 1 atorvastatin (Lipitor) 80 MG tablet TAKE 1 TABLET BY MOUTH EVERY DAY 100 tablet 3 carvedilol (Coreg) 25 MG tablet Take 12.5 mg by mouth in the morning and 12.5 mg before bedtime. citalopram (CeleXA) 20 MG tablet TAKE 1 TABLET BY MOUTH ONCE DAILY 100 tablet 2 clopidogrel (Plavix) 75 MG tablet Continuous Blood Gluc Sensor (Dexcom G7 Sensor) misc 1 Disk Every 10 (ten) days 3 each 11 Continuous Glucose Emissions Inspector (Dexcom G7 Emissions Inspector) device 1 Device yearly 1 each 0 dicyclomine (Bentyl) 20 MG tablet Take 20 mg by mouth 4 (four) times a day as needed. furosemide (Lasix) 20 MG tablet Take 60 mg by mouth in the morning. furosemide (Lasix) 40 MG tablet Take 40 mg by mouth Daily gabapentin (Neurontin) 300 MG capsule Take 300 mg by mouth in the morning and 300 mg before bedtime. insulin glargine (Lantus) 100 UNIT/ML injection Inject 40 Units under the skin at bedtime 10 mL 12 insulin pen needle (B-D ULTRAFINE III SHORT PEN) 31G X 8 mm misc USE DIRECTED EVERY DAY WITH BASAGLAR 100 each 3 insulin regular (NovoLIN R) 100 UNIT/ML injection INJECT DIRECTED UNDER THE SKIN PER SLIDING SCALE WITH MAX OF 22 UNITS PER DAY 40 mL 2 Insulin Syringe 31G X 5/16 1 ML misc USE DIRECTED TO ADMINISTER INSULIN TWICE DAILY 200 each 3 LORazepam (Ativan) 0.5 MG tablet Take 0.5 mg by mouth every 8 (eight) hours if needed potassium chloride CR (Klor-Con M20) 20 MEQ ER tablet Take 1 tablet (20 mEq) by mouth in the morning. 90 tablet 0 spironolactone (Aldactone) 25 MG tablet Take 25 mg by mouth in the morning. No current facility-administered medications for this visit. (Other) Past Medical History: Diagnosis Date A-fib ([facility]) 2022 with RVR Anxiety Aortic stenosis 06/2022 Carotid artery disease ([facility]) Cataract CHF (congestive heart failure) ([facility]) 06/2022 Colon polyp 2016 Diverticulitis DM (diabetes mellitus) ([facility]) HLD (hyperlipidemia) ([facility]) HTN (hypertension) ([facility]) RI (myocardial infarction) ([facility]) NSTEMI, initial episode of care ([facility]) 2022 Retinal hemorrhage Allergies Allergen Reactions Penicillins Hives and Unknown childhood-swelling Review of Systems Constitutional: Negative. HENT: Negative. Eyes: Negative. Respiratory: Negative. Cardiovascular: Negative. Gastrointestinal: Negative. Genitourinary: Negative. Musculoskeletal: Negative. Skin: Negative. Neurological: Negative. Psychiatric/Behavioral: Negative. Hematological: Negative. Endocrine: Negative. Allergic/Immunologic: Negative. Objective Base Eye Exam Visual Acuity (Snellen - Linear) Right Left Dist sc 20/80 HM Tonometry (Applanation, 1:23 PM) Right Left Pressure 21 21 Pupils Pupils Right PERRL Left PERRL Visual Reyes Left Right Full Full Extraocular Movement Right Left Full Full Neuro/Psych Oriented x3: Yes Dilation Both eyes: 1.0% Mydriacyl @ 1:09 PM Additional Tests Keratometry K1 [place] K2 [place] Right 43.75 180 44 90 Left 44.25 169 44.5 79 Glare Testing High Right 20/400 Left Slit Lamp and Fundus Exam External Exam Right Left External Rosacea, Brow ptosis Rosacea, Brow ptosis Slit Lamp Exam Right Left Lids/Lashes Blepharitis, Dermatochalasis - upper lid, Ptosis Blepharitis, Dermatochalasis - upper lid, Ptosis Conjunctiva/Sclera White and quiet White and quiet Cornea Decreased tear film Decreased tear film Anterior Chamber Deep and quiet Deep and quiet Iris Round and reactive Round and reactive Lens 2-3+ Nuclear sclerosis, Vacuoles, 2+ Cortical cataract 4+ Nuclear sclerosis, 4+ Cortical cataract, 4+ Posterior subcapsular cataract Anterior Vitreous Dense VH Normal Fundus Exam Right Left Disc Red Reflex Red Reflex Macula Microaneurysms, FV membrane off nerve Vessels Vascular attenuation Periphery Minimal site of retina superior Refraction Manifest Refraction Sphere Cylinder [place] Right +1.75 -0.75 098 Left Assessment/Plan Cataract mature, total senile - IOL Biometry - OU - Both Eyes (CPT 06669) - Visually Significant Cataract, OU: I discussed the risks, benefits, alternatives, and expectations of cataract surgery. A complete ophthalmic exam was performed and it was determined that the cataracts were a primary source of vision decline, affecting activities of daily living, necessitating removal. Limited vision post-surgery may occur with pre-existing conditions affecting other areas of the eye or the brain was explained and the patient displayed an understanding. The overall objective is to improve ADLs, not eliminate glasses or restore vision to 20/20. Tests were reviewed - the different lens options were explained including the [id number] fees for any upgrades. Intraocular lens (IOL) selection may be altered either prior to or during the procedure based on the doctor's discretion including reverting to a traditional intraocular lens (IOL). They understood that there will exist the potential of glasses prescription need post surgery for near, distance or possibly both. The patient stated a full understanding and a desire to proceed with the procedure. The patient received cataract measurements and had any additional questions answered. - A complete exam was performed including a physical exam: General: AAOx3 and NAD, Lungs: Clear, Heart: RRR, Abdomen: S/NT/ND, Extremities: no pitting edema. - left eye (OS) with extremely dense NS. This will require vision blue for best improvement to the vision. documented in this encounter [facility] 07-09-2024 History of Present illness Narrative Patient: Marimar Patel : 1955 PCP: Nik Bell MD SUBJECTIVE Patient presents today for follow-up of complaints of cold and blue toes to the left foot. She has history of almost total occlusion in the past and had procedure in the recent past. She also has complaints of some redness with a black like lesion to her medial malleolar region of the left ankle and denies any drainage denies nausea vomiting chills. Patient states she has been taking oral antibiotics and pain medication for pain to her lower extremity Presents today for follow-up of BRIDGER PVRs Patient states she had improvement from seeing this [facility] doctors with intervention and has follow up in the near future Patient was seen in [place] for vascular intervention in the past with hx of DM2 and PVD Patient states continued pain to the region and was to follow up with vascular surgeon at the [facility] and states that she did follow up and had vascular intervention with improvement to her legs and warmth to her legs that point in time Patient presents today with a CC of elongated, thick nails. Pt states nails have been elongated and thick for many years and cause pain with ambulation in shoegear. Pt has tried previous treatment with minimal relief. Pt presents today for nail care and treatment. Patient is DM2 Allergies: Allergies Allergen Reactions Penicillins Hives and Unknown childhood-swelling Past Medical History: Past Medical History: Diagnosis Date A-fib ([facility]) 2022 with RVR Anxiety Aortic stenosis 06/2022 Carotid artery disease ([facility] Cataract CHF (congestive heart failure) ([facility]) 06/2022 Colon polyp 2016 Diverticulitis DM (diabetes mellitus) ([facility]) HLD (hyperlipidemia) ([facility]) HTN (hypertension) ([facility]) RI (myocardial infarction) ([facility]) NSTEMI, initial episode of care ([facility]) 2022 Retinal hemorrhage Medications: Current Outpatient Medications: albuterol (2.5 MG/3ML) 0.083% nebulizer solution, 3 ml Inhalation 4 times a day and as needed for 6, Disp: , Rfl: apixaban (Eliquis) 5 MG tablet, Take 1 tablet (5 mg) by mouth in the morning and 1 tablet (5 mg) before bedtime., Disp: 200 tablet, Rfl: 1 atorvastatin (Lipitor) 80 MG tablet, TAKE 1 TABLET BY MOUTH EVERY DAY, Disp: 100 tablet, Rfl: 3 carvedilol (Coreg) 25 MG tablet, Take 12.5 mg by mouth in the morning and 12.5 mg before bedtime., Disp: , Rfl: citalopram (CeleXA) 20 MG tablet, TAKE 1 TABLET BY MOUTH ONCE DAILY, Disp: 100 tablet, Rfl: 2 clopidogrel (Plavix) 75 MG tablet, , Disp: , Rfl: Continuous Blood Gluc Sensor (Dexcom G7 Sensor) misc, 1 Disk Every 10 (ten) days, Disp: 3 each, Rfl: 11 Continuous Glucose Emissions Inspector (Dexcom G7 Emissions Inspector) device, 1 Device yearly, Disp: 1 each, Rfl: 0 dicyclomine (Bentyl) 20 MG tablet, Take 20 mg by mouth 4 (four) times a day as needed., Disp: , Rfl: furosemide (Lasix) 20 MG tablet, Take 60 mg by mouth in the morning., Disp: , Rfl: furosemide (Lasix) 40 MG tablet, Take 40 mg by mouth Daily, Disp: , Rfl: gabapentin (Neurontin) 300 MG capsule, Take 300 mg by mouth in the morning and 300 mg before bedtime., Disp: , Rfl: insulin glargine (Lantus) 100 UNIT/ML injection, Inject 40 Units under the skin at bedtime, Disp: 10 mL, Rfl: 12 insulin pen needle (B-D ULTRAFINE III SHORT PEN) 31G X 8 mm misc, USE DIRECTED EVERY DAY WITH BASAGLAR, Disp: 100 each, Rfl: 3 insulin regular (NovoLIN R) 100 UNIT/ML injection, INJECT DIRECTED UNDER THE SKIN PER SLIDING SCALE WITH MAX OF 22 UNITS PER DAY, Disp: 40 mL, Rfl: 2 Insulin Syringe 31G X 5/16 1 ML misc, USE DIRECTED TO ADMINISTER INSULIN TWICE DAILY, Disp: 200 each, Rfl: 3 LORazepam (Ativan) 0.5 MG tablet, Take 0.5 mg by mouth every 8 (eight) hours if needed, Disp: , Rfl: potassium chloride CR (Klor-Con [...] Not on file Tobacco Use Smoking status: Former Types: Cigarettes Smokeless tobacco: Not on file Vaping Use Vaping status: Unknown Substance and Sexual Activity Alcohol use: Never Drug use: Defer Sexual activity: Defer Partners: Decline to Answer Other Topics Concern Not on file Social History Narrative Not on file Social Determinants of Health Financial Resource Strain: Low Risk (06/22/2024) Received from [facility] Overall Financial Resource Strain (CARDIA) Difficulty of Paying Living Expenses: Not hard at all Food Insecurity: No Food Insecurity (12/03/2023) [facility] Hunger Vital Sign Within the past 12 months, you worried that your food would run out before you got the money to buy more.: Never true Within the past 12 months, the food you bought just didn't last and you didn't have money to get more.: Never true Transportation Needs: No Transportation Needs (06/22/2024) Received from [facility] PRAPARE - Transportation Lack of Transportation (Medical): No Lack of Transportation (Non-Medical): No Physical Activity: Inactive (06/22/2024) Received from [facility] Exercise Vital Sign Days of Exercise per Week: 0 days Minutes of Exercise per Session: 0 min Stress: Stress Concern Present (12/03/2023) Re[facility] from [facility], [facility] [employer] - Occupational Stress Questionnaire Feeling of Stress : To some extent Social Connections: Moderately Isolated (12/03/2023) Received from [facility] Social Connection and Isolation Panel [NHANES] Frequency of Communication with Friends and Family: More than three times a week Frequency of Social Gatherings with Friends and Family: More than three times a week Attends Sabianist Services: Never Active Member of Clubs or Organizations: No Attends Club or Organization Meetings: Never Marital Status: Intimate Partner Violence: Not At Risk (12/03/2023) Received from [facility] Humiliation, Afraid, Rape, and Kick questionnaire Fear of Current or Ex-Partner: No Emotionally Abused: No Physically Abused: No Sexually Abused: No Housing Stability: Low Risk (06/22/2024) Received from [facility] Housing Stability Vital Sign Unable to Pay for Housing in the Last Year: No Number of Times Moved in the Last Year: 1 Homeless in the Last Year: No ROS: General: denies fever, chills, fatigue, malaise OBJECTIVE LE EXAM: DERM: Elongated thick yellow crumbly nails digits 1 through 10. Negative hair growth with thin shiny atrophic skin bilaterally Small black lesion proximally 0.3 cm 0.3 cm to medial malleolus Notable toes 1 through 5 left ruborous with changed from blue hue on previous visits due to vascular intervention lateral aspect of the left foot has scar tissue Rubor to PIPJ regions 2 through 5 bilateral feet VASC: Negative DP and negative PT pedal pulses with warm to cool ibia to toes left and positive edema to left foot. NEURO: 5.07 [place] monofilament test diminished to digits and forefoot bilaterally 125Hz tuning fork diminished to 1st MPJ bilaterally ORTHO: Positive pain on palpation nails 1 through 10 Flexion deformities digits 2 through 5 bilateral ASSESSMENT 1. PVD (peripheral vascular disease) ([facility]) 2. Diabetes mellitus due to underlying condition with diabetic polyneuropathy, unspecified whether senior living insulin use ([facility]) 3. Dry gangrene ([facility]) 4. Onychomycosis 5. Toe pain, bilateral PLAN Discussed proper foot care with patient today. Debride nails in length and thickness digits 1 through 10 Patient educated today on proper diabetic foot care including monitoring feet daily for any signs of infection openings in the skin or irregularities to both feet. Patient had a diabetic neurological exam today to both their feet and discussed proper shoe gear. Patient continue dry sterile dressing to the area of dry gangrene to the medial left ankle which seems to be improving and contact Podiatry if any issues Alexis Gilmore DPM documented in this encounter [facility] 06-30-2024 Evaluation note Type assessment Type 2 diabetes emelia itus 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 macular edema, bilateral impression Type 2 diabetes emelia itus 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 macular edema, bilateral: [id number]. Bilateral. Condition: established, stable OD, active/worsening OS [facility] Work Phone: 1(730) 365-661308-21-2024 History of Present illness Narrative* Encounter Date Complaint History Of Prese nt Illness DM with PDR without ME The 69 ye ar old female presents for treatment of PDR without ME in the right and left eyes. Possible VH The 68 year old female presents for evaluation of Possible VH in the right eye. This is a new patient presenting for evluation of possible vitreous hemorrhage of her right eye diagnosed and referred by . Patient reports she sees black lines and floaters OD that started Friday of this week. Patient reports vision is extremely low with photophobia. Denies current flashes of light. Denies ocular pain. Patient is using Clear eyes PRN. Vitreous hemorrhage The 67 year old female presents for 1 day post op evaluation . Patient removed bandage this morning at home before she took a shower.. Patients did not bring her drops today. Patient states that she could not see much this morning after she removed the bandage. 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 Patient denies any pain but states its more like discomfort then anything. diabetic retinopathy The 67 year old female presents for evaluation of diabetic retinopathy in the right eye and left eye. Patient reports vision in the left eye has significantly worsened and is very blurry, right eye is stable. Patient notes she had a high moderate headache yesterday. Patient notes she occasionally has floaters in the left eye only, but denies flashes of light in both eyes. Type 2 DM with PDR without ME Th e 67 year old female presents for 1.5 year evaluation . Patient states that last Friday her left eye was blurry when she woke up. Patient states that her eye doctor told her that her left eye retina was torn. Patient states she does she flashes of light ,but only when in the dark. diabetic retinopathy The 65 year old female presents for evaluation of diabetic retinopathy in the right eye and left eye. Patient denies vision changes OU. diabetic eye exam The 65 year ol d female presents for evaluation of diabetic eye exam in the right and left eyes. NO VISION CHANGES The patient is present for evaluation of NO VISION CHANGES in the left eye. It started about 6 week(s) ago. It occurs constantly. The condition is unchanged. Patient denies decreased vision and distortion in vision. diabetic retinopathy The 65 year old female presents for evaluation of diabetic retinopathy in the right eye and left eye. denies vision changes The patien t denies vision changes in the right eye and left eye since her last visit 5 month(s) ago. It occurs frequently and is described as unchanged vision in both eyes. Patient denies eye pain and flashes. diabetic retinopathy The 64 year old female presents for evaluation of diabetic retinopathy in the right eye and left eye. denies vision changes The patien t denies vision changes in the right eye and left eye since her last visit about 4 week(s) ago. It occurs frequently. Patient denies eye pain and flashes. diabetic retinopathy The 64 year old female presents for evaluation of diabetic retinopathy in the right and left eye. denies new vision change The pat ieasa denies new vision change in the right and left eye since her last exam about 5 month(s) ago. It occurs constantly. It affects both near and distance vision. The condition is stable. The patient states light sensitivity and increased watering. diabetic retinopathy The 63 year old female presents for evaluation of diabetic retinopathy in the right eye and left eye. Decreased vision The patient is present for evaluation of Decreased vision in the right eye and left eye. It started about 2 months ago. It occurs frequently upon standing x 1 minute then clears. The onset was gradual. The condition is mild. The condition is described as blurring. Patient denies eye pain. [facility] Work Phone: 1([phone]) 110-717508-21-2024 Instructions* Date Instruction Additional Infor dimple Impression/Plan Related to Type 2 diabetes mellitus 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 macular edema, bilateral Impression/Plan Related to Combi robin forms of age-related cataract, bilateral Impression/Plan Related to Type 2 diabetes mellitus 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 macular edema, bilateral Impression/Plan Related to Vitre ous hemorrhage, bilateral Return in 1 week wit h Jose Luis Corcoran MD for POFU OS/ OCT OU Related to Vitreous hemorrhage, left eye Impression/Plan Related to Vitre ous hemorrhage, left eye Impression/Plan Related to Type 2 diabetes mellitus 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 macular edema, bilateral Impression/Plan Related to Vitre ous hemorrhage, left eye Return in 3-4 week(s ) with Jose Luis Corcoran MD for follow up and Color photos Related to Type 2 diabetes mellitus 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 macular edema, bilateral Impression/Plan Related to Hyper tension Impression/Plan Related to Catar act, Nuclear Sclerosis OU Impression/Plan Related to Vitre ous hemorrhage, left eye Impression/Plan Related to Type 2 diabetes mellitus 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 macular edema, bilateral Impression/Plan Related to Hyper tension Impression/Plan Related to Catar act, Nuclear Sclerosis OU Impression/Plan Related to Type 2 diabetes mellitus 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 macular edema, bilateral Impression/Plan Related to Catar act, Nuclear Sclerosis OU Impression/Plan Related to Type 2 diabetes mellitus 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 macular edema, bilateral Impression/Plan Related to Hyper tension Impression/Plan Related to Type 2 diabetes mellitus 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 macular edema, bilateral Impression/Plan Related to Hyper tension Impression/Plan Related to Type 2 diabetes mellitus 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 macular edema, bilateral 1-2 months with PTN for FA first/PRP OS Related to Type 2 diabetes mellitus 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 macular edema, bilateral Impression/Plan Related to Hyper tension Impression/Plan Related to Catar act, Nuclear Sclerosis OU Impression/Plan Related to Type 2 diabetes mellitus with mild nonproliferative diabetic retinopathy without macular edema, right eye Impression/Plan Related to Type 2 diabetes mellitus 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 macular edema, bilateral Return in 4 months Related to Ty pe 2 diabetes mellitus 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 macular edema of left eye Impression/Plan Related to Hyper tension Impression/Plan Related to Catar act, Nuclear Sclerosis OU Impression/Plan Related to Type 2 diabetes mellitus 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 macular edema of left eye Impression/Plan Related to Type 2 diabetes mellitus with moderate nonproliferative diabetic retinopathy without macular edema of right eye [facility] Work Phone: 1(126) 949-735708-12-2024 Plan of care note* Care Plan - Massiel Sesay RN - 06/21/2024 7:36 PM EDT The patient's goals for the shift include The clinical goals for the shift include maintain bedrest Problem: Fall/Injury Goal: Not fall by end of shift Outcome: Progressing Goal: Be free from injury by end of the shift Outcome: Progressing Goal: Verbalize understanding of personal risk factors for fall in the hospital Outcome: Progressing Goal: Verbalize understanding of risk factor reduction measures to prevent injury from fall in the home Outcome: Progressing Goal: Use assistive devices by end of the shift Outcome: Progressing Goal: Pace activities to prevent fatigue by end of the shift Outcome: Progressing Problem: Pain Goal: Takes deep breaths with improved pain control throughout the shift Outcome: Progressing Goal: Turns in bed with improved pain control throughout the shift Outcome: Progressing Goal: Walks with improved pain control throughout the shift Outcome: Progressing Goal: Performs ADL's with improved pain control throughout shift Outcome: Progressing Goal: Participates in PT with improved pain control throughout the shift Outcome: Progressing Goal: Free from opioid side effects throughout the shift Outcome: Progressing Goal: Free from acute confusion related to pain meds throughout the shift Outcome: Progressing Problem: Pain - Adult Goal: Verbalizes/displays adequate comfort level or baseline comfort level Outcome: Progressing Problem: Safety - Adult Goal: Free from fall injury Outcome: Progressing [facility] Work Phone: [phone]) 291-941608-12-2024 Miscellaneous Notes* Care Plan - Massiel Sesay RN - 06/21/2024 7:36 PM EDT The patient's goals for the shift include The clinical goals for the shift include maintain bedrest Problem: Fall/Injury Goal: Not fall by end of shift Outcome: Progressing Goal: Be free from injury by end of the shift Outcome: Progressing Goal: Verbalize understanding of personal risk factors for fall in the hospital Outcome: Progressing Goal: Verbalize understanding of risk factor reduction measures to prevent injury from fall in the home Outcome: Progressing Goal: Use assistive devices by end of the shift Outcome: Progressing Goal: Pace activities to prevent fatigue by end of the shift Outcome: Progressing Problem: Pain Goal: Takes deep breaths with improved pain control throughout the shift Outcome: Progressing Goal: Turns in bed with improved pain control throughout the shift Outcome: Progressing Goal: Walks with improved pain control throughout the shift Outcome: Progressing Goal: Performs ADL's with improved pain control throughout shift Outcome: Progressing Goal: Participates in PT with improved pain control throughout the shift Outcome: Progressing Goal: Free from opioid side effects throughout the shift Outcome: Progressing Goal: Free from acute confusion related to pain meds throughout the shift Outcome: Progressing Problem: Pain - Adult Goal: Verbalizes/displays adequate comfort level or baseline comfort level Outcome: Progressing Problem: Safety - Adult Goal: Free from fall injury Outcome: Progressing * Post-Procedure Note - Nely Curry MD - 06/21/2024 2:05 PM EDT Physician Transition of Care Summary Invasive Cardiovascular Lab Procedure Date: 06/21/2024 Attending: * Nely Curry - Primary Resident/Fellow/Other Senior Data Architect: Surgeons and Role: * Braeden Colin MD - Fellow Indications: Pre-op Diagnosis * PAD (peripheral artery disease) ([facility]) [I73.9] Post-procedure diagnosis: Post-op Diagnosis * PAD (peripheral artery disease) ([facility]) [I73.9] Procedure(s): Lower Extremity Angiogram and Intervention [id number] - [facility] ANGIOGRAPHY EXTREMITY UNILATERAL RS&I Procedure Findings: -LLE severe claudication and CLI [place] class V: Patient status post successful revascularization using directional [id number] to entire left SFA and popliteal with good results. Access of the Procedure: 6F right SPOON MAKER, closed with Vascade and manual pressure. Complications: None. Stents/Implants: None. Anticoagulation/Antiplatelet Plan: Heparin boluses to maintain therapeutic ACT throughout the procedure. Estimated Blood Loss: 5 mL Anesthesia: Moderate Sedation Anesthesia Staff: No anesthesia staff entered. Any Specimen(s) Removed: No specimens collected during this procedure. Disposition: -Continue home Plavix, resume home Eliquis tomorrow. -Bedrest for 4 hours. -IV hydration 125 ml/hr for 6 hours. -Follow-up in the clinic in 4 weeks with repeat BRIDGER/TBI. If medial malleolus wound does not heal, then may consider PT intervention. Electronically signed by: Nely Curry MD, 06/21/2024 5:00 PM * Pre-Sedation Documentation - Braeden Colin MD - 06/21/2024 1:58 PM EDT Sedation Plan ASA 3 Mallampati class: III. Risks, benefits, and alternatives discussed with patient. documented in this [facility] Work Phone: [phone]) 288-749608-12-2024 History of Present illness Narrative* Blu Mobley PharmD - 06/21/2024 2:32 PM EDT Pharmacy Medication History Review Marimar Patel is a 68 y.o. female admitted for PAD (peripheral artery disease) ([facility]). Pharmacy reviewed the patient's [id number]-[id number] medications and allergies for accuracy. Medications ADDED: acetaminophen Medications CHANGED: Albuterol as needed for shortness of breath/wheezing Basaglar KwikPen 100units/mL- 50 units at bedtime Ondansetron ODT as needed for nausea/vomiting Medications REMOVED: Spironolactone The list below reflects the updated WARDROBE COORDINATOR list. Comments regarding how patient may be taking medications differently can be found in the Admit Orders Activity Prior to Admission Medications Prescriptions Last Dose Informant BD Ultra-Fine Short Pen Needle 31 gauge x 5/16 needle Self, Spouse/Significant Other Sig: USE DIRECTED EVERY DAY WITH BASAGLAR Basaglar KwikPen U-100 Insulin 100 unit/mL (3 mL) pen 06/20/2024 Self, Spouse/Significant Other Sig: Inject 50 Units under the skin once daily at bedtime. Eliquis 5 mg tablet 06/18/2024 at pm Self, Spouse/Significant Other Sig: Take 1 tablet (5 mg) by mouth every 12 hours. NovoLIN R Regular U100 Insulin 100 unit/mL injection 06/20/2024 Self, Spouse/Significant Other Sig: INJECT DIRECTED UNDER THE SKIN PER SLIDING SCALE WITH MAX OF 22 UNITS DAILY acetaminophen (Tylenol 8 HOUR) 650 mg ER tablet 06/20/2024 Self, Spouse/Significant Other Sig: Take 2 tablets (1,300 mg) by mouth every 8 hours if needed for mild pain (1 - 3). Do not crush, chew, or split. albuterol 2.5 mg /3 mL (0.083 %) nebulizer solution Past Week Self, Spouse/Significant Other Sig: Take 3 mL (2.5 mg) by nebulization 4 times a day as needed for wheezing or shortness of breath. amLODIPine (Norvasc) 10 mg tablet 06/21/2024 Self, Spouse/Significant Other Sig: Take 1 tablet (10 mg) by mouth once daily. atorvastatin (Lipitor) 80 mg tablet 06/20/2024 Self, Spouse/Significant Other Sig: Take 1 tablet (80 mg) by mouth once daily. carvedilol (Coreg) 25 mg tablet 06/21/2024 Self, Spouse/Significant Other Sig: Take 1 tablet (25 mg) by mouth every 12 hours. citalopram (CeleXA) 20 mg tablet 06/21/2024 Self, Spouse/Significant Other Sig: Take 1 tablet (20 mg) by mouth 2 times a day. clopidogrel (Plavix) 75 mg tablet 06/21/2024 Self, Spouse/Significant Other Sig: Take 1 tablet (75 mg) by mouth once daily. furosemide (Lasix) 20 mg tablet 06/21/2024 Self, Spouse/Significant Other Sig: Take 1 tablet (20 mg) by mouth once daily. (Take with 40mg tablet for total dose of 60mg) furosemide (Lasix) 40 mg tablet 06/21/2024 Self, Spouse/Significant Other Sig: Take 1 tablet (40 mg) by mouth once daily in the morning. Take before meals. gabapentin (Neurontin) 300 mg capsule 06/21/2024 Self, Spouse/Significant Other Sig: Take 2 capsules (600 mg) by mouth 2 times a day. hydrALAZINE (Apresoline) 50 mg tablet 06/21/2024 Self, Spouse/Significant Other Sig: Take 1 tablet (50 mg) by mouth twice a day. lisinopril 20 mg tablet 06/20/2024 Self, Spouse/Significant Other Sig: Take 1 tablet (20 mg) by mouth once daily. ondansetron ODT (Zofran-ODT) 4 mg disintegrating tablet Past Week Self, Spouse/Significant Other Sig: Take 1 tablet (4 mg) by mouth every 8 hours if needed for nausea or vomiting. oxyCODONE-acetaminophen (Percocet) 5-325 mg tablet 06/20/2024 at pm Self, Spouse/Significant Other Sig: Take 1 tablet by mouth every 6 hours if needed for severe pain (7 - 10) for up to 7 days. potassium chloride CR 20 mEq ER tablet 06/20/2024 Self, Spouse/Significant Other Sig: Take 1 tablet (20 mEq) by mouth once daily. Facility-Administered Medications: None The list below reflects the updated allergy list. Please review each documented allergy for additional clarification and justification. Allergies Reviewed by Laina Heart RN on 06/21/2024 Severity Reactions Comments Penicillins Not Specified Hives, Other, Unknown childhood-swelling M2B service not offered prior to surgery, please reassess prior to patient discharge if Meds to Beds is desired. Sources used to complete the med history include out patient fill history, OARRS, and patient interview Reliable historian- at bedside to provide clarification Below are additional concerns with the patient's WARDROBE COORDINATOR list. N/A Blu Mobley PharmD Transitions of Care Pharmacist Meds Ambulatory and Retail Services Please reach out via Secure Chat for questions, or if no response call [facility] or [facility] Work Phone: [phone]) 930-904308-12-2024 Note* Post-Procedure Note - Nely Curry MD - 06/21/2024 2:05 PM EDT Physician Transition of Care Summary Invasive Cardiovascular Lab Procedure Date: 06/21/2024 Attending: * Nely Curry - Primary Resident/Fellow/Other Senior Data Architect: Surgeons and Role: * Braeden Colin MD - Fellow Indications: Pre-op Diagnosis * PAD (peripheral artery disease) ([facility]) [I73.9] Post-procedure diagnosis: Post-op Diagnosis * PAD (peripheral artery disease) ([facility]) [I73.9] Procedure(s): Lower Extremity Angiogram and Intervention 75423 - [facility] ANGIOGRAPHY EXTREMITY UNILATERAL RS&I Procedure Findings: -LLE severe claudication and CLI [place] class V: Patient status post successful revascularization using directional [id number] to entire left SFA and popliteal with good results. Access of the Procedure: 6F right SPOON MAKER, closed with Vascade and manual pressure. Complications: None. Stents/Implants: None. Anticoagulation/Antiplatelet Plan: Heparin boluses to maintain therapeutic ACT throughout the procedure. Estimated Blood Loss: 5 mL Anesthesia: Moderate Sedation Anesthesia Staff: No anesthesia staff entered. Any Specimen(s) Removed: No specimens collected during this procedure. Disposition: -Continue home Plavix, resume home Eliquis tomorrow. -Bedrest for 4 hours. -IV hydration 125 ml/hr for 6 hours. -Follow-up in the clinic in 4 weeks with repeat BRIDGER/TBI. If medial malleolus wound does not heal, then may consider PT intervention. Electronically signed by: Nely Curry MD, 06/21/2024 5:00 PM [facility] Work Phone: [phone]) 743-216708-12-2024 Note* Pre-Sedation Documentation - Braeden Colin MD - 06/21/2024 1:58 PM EDT Sedation Plan ASA 3 Mallampati class: III. Risks, benefits, and alternatives discussed with patient. [facility] Work Phone: [phone]) 942-851808-06-2024 History of Present illness Narrative* Margareth Escamilla DO - 06/15/2024 3:00 PM EDT Images from the original note were not included. [facility] Note Referring Provider: Navi Conklin DO PCP: No primary care provider on file. Cost Control Analyst: Alexis Gilmore DPM CC: PAD Subjective HPI: Marimar Patel is 68 y.o. female with history of HTN, CAD s/p CABG (2012), IDDM, Afib (on Eliquis), aortic stenosis s/p TAVR (09/2022), PAD s/p LLE angiogram, SFA/pop atherectomy/stenting (11/2023) whois being referred by Dr. Thomason for management of PAD. Patient had non-healing left great toe and heel ulcers 8-9 months ago for which underwent left SFA/pop atherectomy and stenting on 12/04/2023. Since then the ulcers healed and her pain improved. She then developed new ulcer on 2nd toe and left medial malleolus. Minimal edema of lower extremities. She has left foot rest pain, tissue loss and <100 ft claudication. She was prescribed Percocet by her PCP for the pain and now she is running out and is requesting a refill until her procedure on Friday. [facility] in 2021 showed no targets for revascularization with patent 3/4 bypass graft Past Vascular History: 12/04/23: LLE angiogram, jet stream atherectomy, WARDROBE COORDINATOR and stenting of SFA/pop (Dr. Padilla) for tissueloss Past Vascular Testing: BRIDGER/TBI (06/15/2024): Right 0.52/0.43 Left 0/0 PMH/PSH: HTN, CAD s/p CABG (2012), IDDM, Afib (on Eliquis), aortic stenosis s/p TAVR (09/2022), PADs/p LLE angiogram, SFA/pop atherectomy/stenting (11/2023) Home Meds: Current Outpatient Medications on File Prior to Visit Medication Sig Dispense Refill albuterol 2.5 mg /3 mL (0.083 %) nebulizer solution 3 ml Inhalation 4 times a day and as needed for6 amLODIPine (Norvasc) 10 mg tablet Take 1 tablet (10 mg) by mouth once daily. atorvastatin (Lipitor) 80 mg tablet Take 1 tablet (80 mg) by mouth once daily. Basaglar KwikPen U-100 Insulin 100 unit/mL (3 mL) pen INJECT 86 UNITS UNDER THE SKIN AT AT BEDTIME BD Ultra-Fine Short Pen Needle 31 gauge x 5/16 needle USE DIRECTED EVERY DAY WITH BASAGLAR carvedilol (Coreg) 25 mg tablet Take 1 tablet (25 mg) by mouth every 12 hours. citalopram (CeleXA) 20 mg tablet Take 1 tablet (20 mg) by mouth 2 times a day. clopidogrel (Plavix) 75 mg tablet Take 1 tablet (75 mg) by mouth once daily. Eliquis 5 mg tablet Take 1 tablet (5 mg) by mouth every 12 hours. furosemide (Lasix) 40 mg tablet Take 1 tablet (40 mg) by mouth once daily in the morning. Take before meals. gabapentin (Neurontin) 300 mg capsule Take 2 capsules (600 mg) by mouth 2 times a day. hydrALAZINE (Apresoline) 50 mg tablet Take 1 tablet (50 mg) by mouth twice a day. lisinopril 20 mg tablet Take 1 tablet (20 mg) by mouth once daily. NovoLIN R Regular U100 Insulin 100 unit/mL injection INJECT DIRECTED UNDER THE SKIN PER SLIDING SCALE WITH MAX OF 22 UNITS DAILY ondansetron ODT (Zofran-ODT) 4 mg disintegrating tablet OneTouch Ultra Test strip USE TO TEST BLOOD SUGAR FOUR TIMES DAILY DIRECTED potassium chloride CR 20 mEq ER tablet Take 1 tablet (20 mEq) by mouth once daily. spironolactone (Aldactone) 25 mg tablet Take 1 tablet (25 mg) by mouth once daily. [DISCONTINUED] oxyCODONE-acetaminophen (Percocet) 5-325 mg tablet TAKE 1 TABLET BY MOUTH EVERY 8 HOURS NEEDED FOR PAIN FOR 10 DAYS No current facility-administered medications on file prior to visit. Allergies: Allergies Allergen Reactions Penicillins Hives, Other and Unknown childhood-swelling SH/FH: past smoker ROS: 12 system negative except HPI Objective Vitals: Vitals: 06/15/24 1512 BP: (!) 193/70 Pulse: 91 Exam: Constitutional: No acute distress Neuro: AOx3, grossly intact CV: no tachycardia Pulm: non-labored on room air GI: soft, non-tender, non-distended Extremities: sensory and motor intact, no wounds Pulses: no doppler left pedal signals, left medial malleolar dry ulcer, small left 2nd toe ulcer, healed heel and 1st toe ulcers Assessment/Plan Marimar Patel is 68 y.o. female with HTN, CAD s/p CABG (2012), IDDM, Afib (on Eliquis), aortic stenosis s/p TAVR (09/2022), PAD s/p LLE angiogram, SFA/pop atherectomy/stenting (11/2023) who is being referred by Dr. Thomason for management of PAD. Patient had non-healing left great toe and heel ulcers 8-9 months ago for which underwent left SFA/pop atherectomy and stenting on 12/04/2023. Since then the ulcers healed and her pain improved. She then developed new ulcer on 2nd toe and left medial malleolus. Minimal edema of lower extremities. She has left foot rest pain, tissue loss and <100 ft claudication. BRIDGER/TBI (06/15/2024): Right 0.52/0.43 Left 0/0 No imaging available from [facility] for review Plan: LLE angiogram with intervention on 06/21/[address] Curry Images from [facility] requested Continue aspirin, Plavix, Eliquis (Last dose of Eliquis PM of 06/18) Continue atorvastatin Percocet x10 tablets sent to patients pharmacy for pain control until procedure on 06/21/24 Patient seen and discussed with attending, Dr. Rosette Escamilla DO documented in this [facility] Work Phone: [phone]) [phone] Instructions* Patient Instructions* Margareth Leblanc MD - 06/15/2024 3:00 PM EDT Images from the original note were not included. It was a pleasure taking care of you today and appreciate your seeing us at our [facility]. Today's plan is as follows: Continue Plavix Continue Atorvastatin Continue Eliquis, STOP TAKING 48 hours prior to procedure (Last dose on evening of June 18) Continue local wound care per Dr. Alexis Gilmore Will plan for left leg angiogram on June 21, 2024 INSTRUCTIONS FOR ANGIOGRAM We are going to schedule you for an angioplasty procedure to open the blood flow to your left leg at [facility] ([id number] [facility], [id number] Escamilla The fish hatchery laborer staff will call you the day before the procedure for further instructions and time of the procedure. The phone number to reach them at is [phone] (M-F, 6:30 am -5 pm) You will need to have blood work done prior to the procedure. Please have blood drawn at any location today or within a week of the procedure. Plan to stay overnight after the procedure to be discharged the next day. But there is a chance youwill be discharged home the same day. You will need to have a ride to and from the hospital. Please bring an updated list of all your medications or all the medication on the day of the procedure for review. Please do not eat or drink anything after midnight before the procedure. Please HOLD METFORMIN 48 hrs before the procedure. If you take Insulin at night, TAKE HALF a dose of INSULIN the night before procedure and NO INSULINin the morning of the procedure. You can take the rest of your medications as prescribed in the morning of the procedure with a sip of water. Please DO NOT STOP taking ASPIRIN and PLAVIX before the procedure. Please call the office with any questions at [phone], press option 1 If you need coordinating your appointments and testing you can do these at the hotel front desk agent or by calling my office shortly after your visit. documented in this [facility] Work Phone: [phone]) 694-351307-01-2024 NoteUT Cardiology - [facility] Subjective Marimar Patel is a 68 y.o. year old female patient being seen for 3 mo follow up CAD, PAF, PAD, and aortic valve stenosis s/p TAVR. She had echo and BRIDGER's in March 2024. She saw cotton machine operator on Friday and he ordered more BRIDGER's. Patient Active Problem List Diagnosis Nonrheumatic aortic valve stenosis Coronary artery disease involving miccosukee coronary artery of miccosukee heart with angina pectoris (CMS/HCC) PAF (paroxysmal atrial fibrillation) (CMS/HCC) Essential hypertension PAD (peripheral artery disease) (CMS/HCC) Numbness of left lower extremity Acute asthmatic bronchitis Asthma without status asthmaticus Acute combined systolic and diastolic heart failure (CMS/HCC) Arteriosclerosis of arterial coronary artery bypass graft Atrophic gastritis Cataract mature, total senile Chest pain Chondrocalcinosis Chronic ulcer of left foot with fat layer exposed (CMS/HCC) Dehiscence of operative wound Diabetes mellitus (CMS/HCC) Diabetic foot ulcer (CMS/HCC) Diverticulosis of colon Dry gangrene (CMS/HCC) Estrogen deficiency Generalized anxiety disorder History of hysterectomy IBS (irritable bowel syndrome) Migraine Hypercholesterolemia Infection of bone (CMS/HCC) Osteopenia Overweight Pain in soft tissues of limb Polyneuropathy due to type 2 diabetes mellitus (CMS/HCC) Poorly controlled diabetes mellitus (CMS/HCC) Proliferative diabetic retinopathy associated with type 2 diabetes mellitus (CMS/HCC) 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 associated with type 2 diabetes mellitus (CMS/HCC) Staphylococcal infectious disease Type 2 diabetes mellitus with hyperglycemia (CMS/HCC) Type 2 diabetes mellitus without complication (CMS/HCC) Vitreous hemorrhage of right eye (CMS/HCC) Family History Problem Relation Name Age of [...] by vascular surgery Dr. Padilla. She was admitted 02/08/2024 to the [facility] with ?viral infection, weakness, low blood pressure, diarrhea and amlodipine, carvedilol, hydralazine, insulin and spironolactone were stopped. Today she is seen in follow-up. Her blood pressure has been severely elevated. She denies chest pain, palpitations and shortness of breath. She has no leg edema. She has noticed a nonhealing small ulcer overlying the left medial malleolus. She saw her cotton machine operator and ABIs will be performed on 05/17/2024. Review of Systems Constitutional: Positive for malaise/fatigue. Skin: Positive for poor wound healing. All other systems reviewed and are negative. Objective Visit Vitals BP (!) 196/70 (BP Location: Left arm, Patient Position: Sitting) Pulse 66 Ht 1.575 m (5' 2 ) Wt 73.9 kg (163 lb) SpO2 98% BMI 29.81 kg/m??? OB Status Postmenopausal Smoking Status Former BSA 1.8 m??? Physical Exam Constitutional: Appearance: She is [...] No gallop. Pulmonary: Effort: Pulmonary effort is madyson (more content not included)...[facility] [id number] NoteUT Cardiology - [facility] Subjective Marimar Patel is a 68 y.o. year old female patient being seen for Follow-up (1.5 year follow up //Recently in ER ) Patient Active Problem List Diagnosis Nonrheumatic aortic valve stenosis Coronary artery disease involving miccosukee coronary artery of miccosukee heart with angina pectoris (CMS/HCC) PAF (paroxysmal [...] was recently admitted to the [facility] with ?viral infection, weakness, low blood [...] noon, and at bed (more content not included)...[facility]02-09-2024 NoteSubjective Patient ID: Marimar Patel is a 68 [...] She is continuing wound care with her cotton machine operator. Denies any significant pain or pulsatility [...] for this visit: PAD (peripheral artery disease) ([facility]) -Patient with reperfusion edema to the [...] the past 36 hour(s)). No follow-ups on file.[facility]-01[facility] History of Present illness Narrative* Alexis Gilmore, KIKA - 12/11/2023 4:30 PM EST Patient: Marimar Patel : 1955 PCP: Nik Bell MD SUBJECTIVE This is a 68 y.o. female that presents today for follow-up of dry gangrene type changes and ulceration to her left foot and was previously seen proximally 1 week ago and sent for BRIDGER PVRs at local hospital. Findings were severe to the left leg and patient was transferred to [facility] where she had it angioplasty procedure with increased blood flow noted by patient. She has a type 2 diabeticand presents today for follow up in office. Allergies: Allergies Allergen Reactions Penicillins Hives childhood-swelling Past Medical History: Past Medical History: Diagnosis Date A-fib ([facility]) 2022 with RVR Anxiety Aortic stenosis 06/2022 Carotid artery disease ([facility]) CHF (congestive heart failure) ([facility]) 06/2022 Colon polyp 2016 Diverticulitis DM (diabetes mellitus) ([facility]) HLD (hyperlipidemia) ([facility]) HTN (hypertension) ([facility]) RI (myocardial infarction) ([facility]) NSTEMI, initial episode of care ([facility]) 2022 Medications: Current Outpatient Medications: amLODIPine (Norvasc) [...] 86 Units under the skin at bedtime., Disp:, Rfl: lisinopril 20 MG tablet, Take 1 tablet (20 mg) by mouth in the morning., Disp: 100 tablet, Rfl: 3 NovoLIN R 100 UNIT/ML injection, Inject 20 mL under the skin in the morning., Disp: , Rfl: oxyCODONE-acetaminophen (Percocet) 5-325 MG tablet, Take 1 tablet by mouth every 8 (eight) hours ifneeded for severe pain for up to 5 [...] slight black necrotic type lesion to sub 3rdmetatarsal region of the left foot with negative erythema or drainage and lateral aspect left foot as small black like necrotic lesion as well of 0.5 cm x 0.8 cm with negative drainage and scab like appearance VASC: Negative DP and negative PT pedal pulses with warm to warm tibia to toes left and positive edema to left foot NEURO: 5.07 [place] monofilament test diminished to digits and forefoot bilaterally 125Hz tuning fork diminished to 1st MPJ bilaterally ORTHO: Minimal pain on palpation to left foot ulcer BRIDGER PVR non readable findings to the left with non pulsatile flow and right of 0.53 DP ASSESSMENT 1. Diabetes mellitus due to underlying condition with diabetic polyneuropathy, unspecified whether web services professional insulin use ([facility]) 2. PVD (peripheral vascular disease) ([facility]) 3. Dry gangrene ([facility]/HCC) 4. Foot ulcer, left, with fat layer exposed ([facility]/HCC) PLAN Sharp debridement with 15 blade of subcutaneous ulceration to left foot with active bleeding noted and removal and excision of fibrotic and necrotic tissue to wound and DSD applied with neosporin. Ptto continue with Betadine daily Reviewed BRIDGER PVRs and patient is to follow up with [facility] for right foot in near future and continue with wound care until follow up in 1 week Alexis Gilmore DPM documented in this encounterChildren's Mercy [id number] NoteHospital Medicine Discharge Summary Final Discharge Diagnosis: # critical limb ischemia , right lower extremity # lower extremity claudication, bilateral # nonoliguric EVA # Atrial fibrillation on Eliquis # coronary artery disease status post CABG # uncontrolled diabetes mellitus type 2 # Hyponatremia Admission Diagnosis: Hyponatremia [E87.1] PAD (peripheral artery disease) ([facility]) [I73.9] Numbness of left lower extremity [...] December 05, 2023. Dear Dr. Ray MD, [place] is advised to follow up with you within 1-2 weeks. Follow-up with: Vascular Surgery Scheduled appointments: Future Appointments Date Time Provider Department Center 12/19/2023 11:00 AM [facility] [place] [facility] Your medication list START taking these [...] Your Medications These medications were sent to [id number] - [address] [address] clopidogrel 75 mg tablet oxyCODONE-acetaminophen 5-325 mg tablet Marimar is allergic to penicillin and penicillins. Disposition: Home or Self Care () Discharge Condition: Stable Code Status: Full Code Diagnostic Results Hematology: Results from last 7 days Lab Units 12/05/23 0436 12/04/2342412/03/23 1722 12/03/23 1721 WBC AUTO 10*3/uL 8.35 9.60 < > -- HEMOGLOBIN g/dL 9.7* 10.2* < > -- HEMATOCRIT % 30.0* 30.6* < > -- MCV fL 88.5 87.2 < > -- PLATELETS AUTO 10*3/uL 182 207 < > -- INR -- -- -- 1.24* < > = values in this interval not displayed. Chemistry: Results from last 7 days Lab Units 12/05/23 04312/04/23 0425 12/03/23 1721 SODIUM mmol/L 135* 130* [...] providers and care-team, med- (more content not included)...[facility]01-26[facility]GR[facility] NOTE Subjective [...] Can be discharged once the ultrasound is done.[facility]01-26-2024 NoteClinical Nutrition Assessment: Name: Marimar Patel Room: [address] [place] [address] Date: 1955 Date of Visit: 12/05/23 Admission Dx: Hyponatremia [E87.1] PAD (peripheral artery disease) ([facility]) [I73.9] Numbness of left lower extremity [R20.0] Reason for assessment: high risk Information obtained from: patient, medical record, and nursing Past Medical History: Diagnosis Date A-fib ([facility]) Aortic valve stenosis Coronary artery disease Diabetes mellitus ([facility]) Hypertension Peripheral vascular disease ([facility]) Current Medications: aspirin, 81 mg, oral, [...] CHOL 223 (H) 2022 2215 HDL 28 06/28/20225 Latest Reference Range & Units 12/03/23 17:21 [...] 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 Pt lives [...] ideal body weight (50 kg) Calorie needs: 8535-0278 kcals/day based on Equation: 25-30 kcal/kg Protein [...] Academy of Nutrition and Dietetics, and the [place] [employer] of Enteral and Parenteral Nutrition to suppo (more content not included)...[facility]01-26-2024 Note Occupational Therapy Occupational Therapy Evaluation Patient [...] aortic valve stenosis Coronary artery disease involving miccosukee coronary artery of miccosukee heart with angina pectoris ([facility]/HCC) PAF (paroxysmal atrial fibrillation) ([facility]) Essential hypertension PAD (peripheral artery disease) ([facility]) Numbness of left lower extremity Past Medical History: Diagnosis Date A-fib ([facility]) Aortic valve stenosis Coronary artery disease Diabetes mellitus ([facility]) Hypertension Peripheral vascular disease ([facility]) Past Surgical History: Procedure Laterality Date [...] Level of Function Prior Function Level of Emanuel: Independent with ADLs and functional transfers Prior [...] deficits Sensation Light T (more content not included)...[facility] [facility] 12-04-2023 NotePatient: Marimar Patel Procedure Summary Date: 12/04/23 [facility] / [facility] [address] [place] [address] / [facility] Operating Room Anesthesia Start: 1350 [...] PACU per anesthesia protocol. No notable events documented.[facility]01-25-2024 Note Patient: Marimar Patel Procedure Summary Date: 12/04/23 [facility] / [facility] [address] [place] [address] / [facility] Operating Room Anesthesia Start: 1350 [...] direct observation Transport: uneventful Patient condition is: [facility] Note Patient: Marimar Patel Procedure Information Anesthesia Start Date/Time: 12/04/23 1350 Procedure: Lower extremity angiogram (Left) - LLE angiogram possible intervention Location: [address] / [facility] Operating Room Surgeons: Binh Padilla MD Relevant Problems Cardio (+) Coronary artery disease involving miccosukee coronary artery of miccosukee heart with angina pectoris ([facility]) (+) Essential hypertension (+) Nonrheumatic aortic valve stenosis (+) PAD (peripheral artery disease) ([facility]) (+) PAF (paroxysmal atrial fibrillation) ([facility]) Clinical information reviewed: Tobacco Allergies Meds [...] who. Plan discussed with attending. Additional [facility] Note Airway Date/Time: 12/04/2023 1:58 PM Urgency: elective Airway not difficult General Information and Staff Patient location during procedure: OR Anesthesiologist: Charlene Jimenez MD Resident/HOTEL FRONT DESK AGENT/CAA: Deep Bolton CRNA Performed: resident/HOTEL FRONT DESK AGENT/CAA Indications and Patient Condition Indications for airway [...] 0 Additional Comments 4ml 4% lidocaine lta [facility]01-25-2024 Note Hospital Medicine Daily Progress Note - 12/04/2023 12:06 PM; Room: 07B/B Admission: 12/03/2023 4:20 PM; Length of stay: 1 days THE HOSPITALIST TEAM PREFERS TO USE [employer] [place] CHAT FOR COMMUNICATION 7AM-7PM. IF I DO NOT RESPOND WITHIN 15 MINUTES, PLEASE PAGE ME/CALL THROUGH THE SPINDLE FRAME CARVER. FROM 7PM-7AM, PLEASE PAGE [phone](COVR) Code Status: Full Code Barriers to Discharge: [...] extremity Active Problems: PAD (peripheral artery disease) ([facility]) Assessment and Plan 1. Right lower [...] LDL 195 2022 No results found for: SCXSIRWN17 , IRON , TIBC , C3 , [...] Home Does the pa (more content not included)...[facility] 12-03-2023 NotePharmacy completed a medication reconciliation for Marimar Patel. Patient is a 68 y.o. year old female, 1.575 m (5' 2 ) cm, 72.6 kg (160 lb) kg, CrCl= Estimated Creatinine Clearance: 29.5 mL/min (A) (by C-G formula based on SCr of 1.68 mg/dL (H)). mL/minute. Patient has allergies to: Penicillin and Penicillins . Pt fills at [facility] [phone]. Medication list was obtained from patient's fill history list and patient (pt stated that her knows the medication better but he is not in the room). Home medication list has been updated. Please call pharmacy with any questions. Thank you! Confirmed that patient was doing basaglar 80 units at night (Rx said 86 units) Thanks, [facility] Fiona Nash, PharmD, 12/03/23[facility] 12-[facility]2023 Note12/03/232003 Financial Resource Strain How hard is it [...] place to sleep or slept in a jail (including now)? N Transportation Needs In the [...] than 3 How often do you attend temple or jehovah's witness services? Never Do you belong to any clubs or organizations such as temple groups, unions, fraternal or athletic groups, or [...] home? No 12/03/232004 Referral Data Referral Source aboriginal education worker coordinator Referral Reason Psychosocial assessment Patient Information Primary Caregiver Self Accompanied by/Relationship Activities of Daily Living Assistive Device Cane;Walker (Uses sometimes) Living Arrangement (Current/Prior to Hospitalization) Private residence (Lives at home with and son) Ambulation Minimum assistance (Uses walker or cane sometimes) Dressing Independent Feeding Independent Behavior Oriented Communication Can write;Talks;Understands speaking;Understands Faroese;Reads Income Information Income Source Unemployed Discharge Planning [...] system as her friends, her , her [id number], and her son. Patient endorsed that she [...] the past year and denied any alcohol consumption.[facility]04-12-2023 Evaluation note* Encounter Date Diagnosis Assessment Notes Treatment Notes Treatment Clinical Notes Feb, PAD (peripheral artery disease) (ICD-10 - I73.9) We reviewed [...] office sooner with any issues or concerns. [facility] Other 03-24-2023 NotePROCEDURE: XR WRIST LT MIN 3 V HISTORY: Pain after falling COMPARISON: None. FINDINGS: BONES:No fracture, acute abnormality, or significant arthropathy. SOFT TISSUES:Multiple skin jose within soft tissues lateral to the distal forearm. EFFUSION:None visible. OTHER: Negative. IMPRESSION: 1. No acute bone abnormality. 2. Multifocal mild degenerative joint disease. Electronically authenticated by: GERMAIN COY Date: 2023-01-31 13:10[id number] Procedure [facility] 01-09-2023 Evaluation note* Encounter Date Diagnosis [...] clinical exam. I do not have the [place] studies yet. We will reach out to [...] was obtained all her questions were addressed. [facility] Other 08-25-2022 NoteMR#: [id number] I [facility] Pt. Name: Marimar Patel Admitted: [...] Amaya MD Date Trans: 07/03/2022 11:43 P/mmo [id number] cc: Nik Bell M.D. [address] [facility] [id number]-2021 Evaluation note* Encounter Date Diagnosis Assessment [...] plan all of her questions were addressed. [employer] Other Consult note* Clinical Note Date No Information [facility] Work Phone: Discharge summary* Clinical Note Date No Information [facility] Work Phone: Evaluation noteNo assessment information available [facility] Work Phone: Evaluation note* Diagnosis Diabetes mellitus due to underlying condition with diabetic polyneuropathy, unspecified whether senior living insulin use ([facility]/HCC)- Primary PVD (peripheral vascular disease) ([facility]) Unspecified peripheral vascular disease Dry gangrene ([facility]) Foot ulcer, left, with fat layer exposed ([facility]) documented in this encounter [facility] Healthcare[facility]* Diagnosis Onset Date Resolution Status Peripheral artery disease ac philippe [facility] Work Phone: Evaluation note* Diagnosis Pseudophakia- Primary Lens replaced by other means documented in this encounter [facility] Healthcare[facility] note* Diagnosis Pseudophakia- Primary Lens replaced by other means Cataract mature, total senile Total or mature senile cataract documented in this encounter [facility] Healthcare[facility]* Diagnosis Pseudophakia- Primary Lens replaced by other means documented in this encounter [facility] HealthcareEvaluation note* Diagnosis Pseudophakia- Primary Lens replaced by other means Diabetes mellitus due to underlying condition with diabetic polyneuropathy, unspecified whether senior living insulin use ([facility])- Primary Pain due to onychomycosis of toenails of both feet Dry gangrene ([facility]) PVD (peripheral vascular disease) ([facility]) Unspecified peripheral vascular disease documented in this encounter [facility]* Diagnosis Acute asthmatic bronchitis ([facility])- Primary Unspecified asthma, with exacerbation Type 2 diabetes mellitus with hyperglycemia, with long-term current use of insulin ([facility]) Polyneuropathy due to type 2 diabetes mellitus ([facility]) Acute cough Dry gangrene ([facility])- Primary PVD (peripheral vascular disease) ([facility]) Unspecified peripheral vascular disease Diabetes mellitus due to underlying condition with diabetic polyneuropathy, unspecified whether web services professional insulin use ([facility]) Pain due to onychomycosis of toenails of both feet documented in this encounter [facility]* Diagnosis Dry gangrene ([facility])- Primary PVD (peripheral vascular disease) ([facility]) Unspecified peripheral vascular disease Diabetes mellitus due to underlying condition with diabetic polyneuropathy, unspecified whether web services professional insulin use ([facility]) Pain due to onychomycosis of toenails of both feet documented in this encounter [facility] HealthcareEvaluation [facility]* Diagnosis Acute asthmatic bronchitis ([facility])- Primary Unspecified asthma, with exacerbation Need for vaccination Need for prophylactic vaccination and inoculation against unspecified single disease Hypotension, unspecified hypotension type documented in this encounter [facility]* Diagnosis Pseudophakia- Primary Lens replaced by other means documented in this encounter [facility]* Diagnosis PAD (peripheral artery disease) ([facility])- Primary Unspecified peripheral vascular disease PAD (peripheral artery disease) ([facility]) Unspecified peripheral vascular disease S/P peripheral artery angioplasty Other postprocedural status Atherosclerosis of miccosukee arteries of extremities with intermittent claudication, left leg ([facility]) Atherosclerosis of miccosukee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 with ulceration of other part of foot (Multi) Acute pain PAD (peripheral artery disease) ([facility]) Unspecified peripheral vascular disease documented in this encounter [facility] Work Phone: Evaluation note* Diagnosis PAD (peripheral artery disease) ([facility])- Primary Unspecified peripheral vascular disease Anemia, unspecified type documented in this encounter [facility] Work Phone: Evaluation note* Diagnosis PAD (peripheral artery disease) ([facility]) Unspecified peripheral vascular disease S/P peripheral artery angioplasty Other postprocedural status documented in this encounter [facility] Work Phone: Evaluation note* Diagnosis S/P peripheral artery angioplasty- Primary Other postprocedural status PAD (peripheral artery disease) ([facility]) Unspecified peripheral vascular disease documented in this encounter [facility] Work Phone: Evaluation note* Diagnosis Dry gangrene ([facility] Primary PVD (peripheral vascular disease) ([facility]) Unspecified peripheral vascular disease Diabetes mellitus due to underlying condition with diabetic polyneuropathy, unspecified whether web services professional insulin use ([facility]) Onychomycosis Dermatophytosis of nail Toe pain, bilateral documented in this encounter [facility] HealthcareEvaluation note* Diagnosis Cataract mature, total senile- Primary Total or mature senile cataract documented in this encounter [facility] HealthcareEvaluation note* Diagnosis Heel spur, right- Primary Diabetes mellitus due to underlying condition with diabetic polyneuropathy, unspecified whether web services professional insulin use ([facility]) Pain due to onychomycosis of toenails of both feet Onychomycosis Dermatophytosis of nail PVD (peripheral vascular disease) ([facility]) Unspecified peripheral vascular disease Achilles tendinitis, right leg Contracture of right ankle documented in this encounter [facility] HealthcareHistory and physical note* Clinical Note Date No Information [facility] Work Phone: History general Narrative - Reported* Type Description Date Medical History carotid stenosis Medical History diverticulitis Medical History RI Medical History DM Medical History hyperlipidemia Medical History HTN Surgical History cholecystectomy Surgical History tonsillectomy Surgical History CABGx2 Surgical History hernia repair Surgical History appendectomy Surgical History quad bypass 2013 Hospitalization History see surgical hx [facility] Other History general Narrative - Reported* Type Description Date Medical History carotid stenosis Medical History diverticulitis Medical History RI Medical History DM Medical History hyperlipidemia Medical History HTN Surgical History cholecystectomy Surgical History tonsillectomy Surgical History CABGx2 Surgical History hernia repair Surgical History appendectomy Surgical History quad bypass 2012 Surgical History Cardiac Stent 2022 Hospitalization History see surgical hx [facility] Other History of Present illness Narrative* Teena Delcid DO - 08/24/2024 11:00 AM EDT Images from the original note were not included. Assessment/Plan Diagnoses and all orders for this visit: Pseudophakia - s/p CE OD (POD #1): Patient provided with post-op form. Instructed to continue drops as well as shield. Instructed to call immediately with increased pain, redness, decreased vision, questions or concerns. [facility] * Teena Delcid DO - 09/17/2024 9:30 AM EST Images from the original note were not included. Assessment/Plan Diagnoses and all orders for this visit: Pseudophakia - s/p CE OS (POD #7): Patient provided with post-op form. Instructed to continue drops. Discontinueeye shield. Instructed to call immediately with increased pain, redness, decreased vision, questions or concerns. [facility] Additional Instructions DISDISCHARGE INSTRUCTIONS FOR ANGIOGRAM, ANGIOPLASTY, STENT PLACEMENT -[Keep arm board to affected arm for 2-3 hours after discharge.] FIRST TWO (2) DAYS AFTER DISCHARGE: -Take it easy at home, no strenuous activity. -Do not lift or pull objects over 10 pounds, including children and groceries (10 pounds = 1 gallon milk). -May shower. -[Able to go upstairs?] -No excessive scrubbing of affected groin or arm. -May drive car unless you had sedation for the procedure, then you cannot drive for 24 hours. CALL [name at #] OR [facility] AT [phone]: -If excessive bleeding should occur from the puncture site, immediately apply pressure to the site and call 911. -Report any fever, redness, drainage, increased swelling, or firmness at catheter site insertion. Some bruising or slight swelling may be present and this is normal. -Should the arm or leg become cold, numb, white, or blue - go to the nearest emergency room. MEDICATIONS -Follow instructions on the discharge medication sheet regarding your medications. -[Do NOT take any Metformin containing medications for the next two days: ActoPlusMet, ActoPlusMet XR, Avandamet, Fortamet, Glucophage, Glucophage XR, Glucovance, Glumetza, Janumet, Janumet XR, Jentadueto, Kombiglyze XR, Metaglip, Metformin, PrandiMet, Riomet.] FOLLOW UP/OTHER INSTRUCTIONS [ ] CHARGE INSTRUCTIONS FOR ANGIOGRAM -No diet restriction. -Limited activity. [?Up in house, drive a car?] -No strenuous activity today, especially with affected arm or leg. -[Do NOT take any Glucophage, Glucovance, Metformin, Metaglip, Riomet, or Avandament for the next two days.] [ ][facility] Work Phone: Progress note* Clinical Note Date No Information [facility] Work Phone: Rezaow for referral (narrative)* Reason For Referral No Information [facility] Work Phone: Reason for visit Narrative* Auth/Cert Specialty Diagnoses / Procedures Referred By Contac t Referred To Contact Diagnoses PAD (peripheral artery disease) ([facility]) PAD (peripheral artery disease) ([facility]) [I73.9] Procedures CHG ANGIOGRAPHY EXTREMITY UNILATERAL RS&I Lower Extremity Angiogram and Intervention Nely Curry MD [address] [facility] [place] [address] [facility] [id number] [address] [address] [place] [address] Referral ID Status Reason Start Date Expiration Date Visits Re quested Visits Authorized [id number] 1 1 [facility] Work Phone: Summary Purpose Family History No Family History Records Found Relationship Condition Age at Onset Recorded Date/T ivana Not Specified No pertinent family history Unknown Family Member Type Diagnosis Age At Onset Problem (finding) Family history of hyper tension Problem (finding) Family history of catar act Problem (finding) Family history of Cardi ovascular disease Problem (finding) Family history of Diabe chris mellitus Advance Directives No Advanced Directives Records Found Advance Directive Response Recorded Date/ Time Advance Directives No January 09 9:00am Advance Directive Response Recorded Date/ Time Advance Directives No January 09 10:00am Directive Yes / No Effective Date File Name No Information Chief Complaint and Reason for Visit Chief Complaint Diabetic Foot Ulcer, PAD Left Leg Chief Complaint Diabetic Foot Ulcer, PAD Left Leg i70.212 Chief Complaint i73.9 i96 e08.42 Chief Complaint i73.9 i96 e08.42 GO OVER PVR'S PVD Peripheral vascular disease Reason for Visit Peripheral artery di sease Chief Complaint i73.9 i96 e08.42 GO OVER PVR'S PVD Peripheral vascular disease Z01.818 Reason for Visit Peripheral artery di sease Reason for Referral Specialty Diagnoses / Procedures Referred By Ashley beaver Referred To Contact Cardiology Diagnoses PAD (peripheral artery disease) ([facility]) S/P peripheral artery angioplasty Procedures Vascular US Ankle Brachial Index (BRIDGER) Without Exercise Terri Sosa APRN-TOOL GRINDER [address] [place] [address] Referral ID Status Reason Start Date Expiration Date Visits Requested Visits Authorized [id number] Authorized Perform Procedure 06/21/2024 06/21/2025 1 1 Additional Source Comments REASON FOR VISIT (unrecogniz ed section and content) Reason Comments Consult PVR F/U Reason Comments Post-op Reason Comments Post-op Cataract Reason Comments Post-op Follow-up Reason Comments Diabetes Reason Comments DM Foot Care Dm nail care Reason Comments New Patient Visit Specialty Diagnoses / Procedures Referred By Ashley beaver Referred To Contact Cardiology Diagnoses PAD (peripheral artery disease) ([facility]) S/P peripheral artery angioplasty Procedures Vascular US Ankle Brachial Index (BRIDGER) Without Exercise Terri Sosa I FACILITIES MAINTENANCE SUPERVISOR-TOOL GRINDER [address] [place] [address] Referral ID Status Reason Start Date Expiration Date Visits Requested Visits Authorized [id number] Authorized Perform Procedure 06/21/2024 06/21/2025 1 1 Reason Comments Follow-up Reason Comments DM Foot Care DM Nails Reason Comments Cataract INFORMATION SOURCE (unrecogn ized section and content) DATE CREATED AUTHOR 07/13/2022 [facility] DATE CREATED AUTHOR AUTHOR'S ORGANIZ ATION 02/04/2023 [facility] DATE CREATED AUTHOR AUTHOR'S ORGANIZ ATION 05/31/2024 [facility] DATE CREATED AUTHOR AUTHOR'S ORGANIZ ATION 07/26/2024 [facility] DATE CREATED AUTHOR AUTHOR'S ORGANIZ ATION 07/26/2024 [facility] DATE CREATED AUTHOR AUTHOR'S ORGANIZ ATION 08/31/2024 [facility] DATE CREATED AUTHOR AUTHOR'S ORGANIZ ATION 11/02/2024 [facility] DATE CREATED AUTHOR AUTHOR'S ORGANIZ ATION 12/11/2024 [facility] EPIC Care Teams (unrecognized sec tion and content) Team Status: Active Member Role Status Dates Nik Bell II MD Primary Care Provider Active Team Status: Inactive Member Role Status Dates Nik Bell II MD Primary Care Provider Active Geo Mathew MD Attending Provider Active Granulator Tender Relationship Specialty Start Date End Date Nik Bell MD [address] [facility] [address] [place] [address] PCP - General Internal Medicine 03/18/23 Team Status: Inactive Member Role Status Dates Nik Bell II MD Primary Care Provider Active Start: May 17, 2024 End: May 17, 2024 Alexis Gilmore DPM Attending Provider Active Start: May 17, 2024 End: May 17, 2024 Team Status: Inactive Member Role Status Dates Nik Bell II MD Primary Care Provider Active Start: May 18, 2024 End: May 18, 2024 Rodrigo Yousif MD Attending Provider Active S tart: May 18, 2024 End: May 18, 2024 Team Status: Inactive Member Role Status Dates Nik Bell II MD Primary Care Provider Active Start: May 19, 2024 End: May 19, 2024 Rodrigo Yousif MD Attending Provider Active S tart: May 19, 2024 End: May 19, 2024 Team Status: Active Member Role Status Dates Nik Bell II MD Primary Care Provider Active Start: May 19, 2024 Rodrigo Yousif MD Attending Provider, Other Provide r Active Start: May 19, 2024 Team Status: Inactive Member Role Status Dates Nik Bell II MD Primary Care Provider Active Start: May 27, 2024 End: May 27, 2024 Rodrigo Yousif MD Attending Provider Active S tart: May 27, 2024 End: May 27, 2024 Name Effective Dates (start - stop) Status Members No Information Granulator Tender Relationship Specialty Start Date End Date Nik Bell MD [address] [place] [address] PCP - General Internal Medicine 03/18/23 Nik Bell MD [address] [place] [address] PCP - ACO Reach 01/09/24Friday, Magalie, NUT SIFTER [address] [place] [address] Licensed Practical Nurse Family Medicine 02/27/24 Granulator Tender Relationship Specialty Start Date End Date Nik Bell MD [address] [place] [address] PCP - General Internal Medicine 03/18/23 Nik Bell MD [address] [place] [address] PCP - ACO Reach 01/09/24Friday, Magalie, NUT SIFTER [address] [place] [address] Licensed Practical Nurse Family Medicine 02/27/24 Granulator Tender Relationship Specialty Start Date End Date Nik Bell MD [address] [place] [address] PCP - General Internal Medicine 03/18/23 Nik Bell MD [address] [place] [address] PCP - ACO Reach 01/09/24Friday, Magalie, NUT SIFTER [address] [place] [address] Licensed Practical Nurse Family Medicine 02/27/24 Granulator Tender Relationship Specialty Start Date End Date Nik Bell MD [address] [place] [address] PCP - General Internal Medicine 03/18/23 Nik Bell MD [address] [place] [address] PCP - ACO Reach 01/09/24Friday, Magalie, NUT SIFTER [address] [place] [address] Licensed Practical Nurse Family Medicine 02/27/24 Granulator Tender Relationship Specialty Start Date End Date Nik Bell MD [address] [place] [address] PCP - General Internal Medicine 03/18/23 Nik Bell MD [address] [place] [address] PCP - ACO Reach 01/09/24Friday, Magalie, NUT SIFTER [address] [place] [address] Licensed Practical Nurse Family Medicine 02/27/24 Granulator Tender Relationship Specialty Start Date End Date Nik Bell MD [address] [place] [address] PCP - General Internal Medicine 03/18/23 Nik Bell MD [address] [place] [address] PCP - ACO Reach 01/09/24Friday, Magalie, NUT SIFTER [address] [place] [address] Licensed Practical Nurse Family Medicine 02/27/24 Granulator Tender Relationship Specialty Start Date End Date Nik Bell MD [address] [place] [address] PCP - General Internal Medicine 03/18/23 Nik Bell MD [address] [place] [address] PCP - ACO Reach 01/09/24Friday, Magalie, NUT SIFTER [address] [place] [address] Licensed Practical Nurse Family Medicine 02/27/24 Granulator Tender Relationship Specialty Start Date End Date Nik Bell MD [address] [place] [address] PCP - General Internal Medicine 03/18/23 Nik Bell MD [address] [place] [address] PCP - ACO Reach 01/09/24Friday, Magalie, NUT SIFTER [address] [place] [address] Licensed Practical Nurse Family Medicine 02/27/24 Granulator Tender Relationship Specialty Start Date End Date Nik Bell MD [address] [place] [address] PCP - General Internal Medicine 03/18/23 Nik Bell MD [address] [place] [address] PCP - ACO Reach 01/09/24Friday, Magalie, NUT SIFTER [address] [place] [address] Licensed Practical Nurse Family Medicine 02/27/24 Granulator Tender Relationship Specialty Start Date End Date Nik Bell MD [address] [place] [address] PCP - General Internal Medicine 03/18/23 Nik Bell MD [address] [place] [address] PCP - ACO Reach 01/09/24Friday, Magalie, NUT SIFTER [address] [place] [address] Licensed Practical Nurse Family Medicine 02/27/24 Granulator Tender Relationship Specialty Start Date End Date Navi Conklin DO [address] [place] [address] PCP - General Family Medicine 06/15/24 06/16/24 Granulator Tender Relationship Specialty Start Date End Date Nik Bell MD [address] [place] [address] PCP - General Internal Medicine 03/18/23 Nik Bell MD [address] [place] [address] PCP - ACO Reach 01/09/24Friday, Magalie, NUT SIFTER [address] [place] [address] Licensed Practical Nurse Family Medicine 02/27/24 Granulator Tender Relationship Specialty Start Date End Date Nik Bell MD [address] [place] [address] PCP - General Internal Medicine 03/18/23 Nik Bell MD [address] [place] [address] PCP - ACO Reach 01/09/24Friday, Magalie, NUT SIFTER [address] [place] [address] Licensed Practical Nurse Family Medicine 02/27/24 Granulator Tender Relationship Specialty Start Date End Date Nik Bell MD [address] [place] [address] PCP - General Internal Medicine 03/18/23 Nik Bell MD [address] [place] [address] PCP - ACO Reach 01/09/24Friday, Magalie, NUT SIFTER [address] [place] [address] Licensed Practical Nurse Family Medicine 02/27/24 Granulator Tender Relationship Specialty Start Date End Date Nik Bell MD [address] [place] [address] PCP - General Internal Medicine 03/18/23 Nik Bell MD [address] [place] [address] PCP - ACO Reach 01/09/24FridayMagalie LPN [address] [place] [address] Licensed Practical Nurse Family Medicine 02/27/24 Granulator Tender Relationship Specialty Start Date End Date Nik Bell MD [address] [place] [address] PCP - General Internal Medicine 03/18/23 Nik Bell MD [address] [place] [address] PCP - ACO Reach 01/09/24FridayMagalie LPN [address] [place] [address] Licensed Practical Nurse Family Medicine 02/27/24 Goals (unrecognized section and content) Goals may be documented in a n alternate section Scheduled Active and Recently Administ ered Medications (unrecognized section and content) Medication Order 06/20/2024 06/21/2024 06/22/2024 amLODIPine (Norvasc) tablet 10 mg 10 mg, oral, Daily, First dose on Fri06/22/24 at 0900 0843 (Given - Provid er: Mariely Mcintosh LPN) apixaban (Eliquis) tablet 5 mg 5 mg, oral, 2 times daily, First dose on Fri06/22/24 at 0900 0843 (Given - Provid er: Mariely Mcintosh LPN)2100 (Due) atorvastatin (Lipitor) tablet 80 mg 80 mg, oral, Daily, First dose on Fri06/21/24 at 1745 1852 (Given - Provider: Ana Guillen RN) 2100 (Due - Provider: Mariely Mcintosh LPN) carvedilol (Coreg) tablet 25 mg 25 mg, oral, Every 12 hours, First dose on Fri06/21/24 at 1830 1852 (Given - Provider: Ana Guillen RN) 0714 (Given - Provider: Massiel Sesay RN)1830 (Due) citalopram (CeleXA) tablet 20 mg 20 mg, oral, 2 times daily, First dose on Fri06/21/24 at 2100 2030 (Given - Provider: Massiel Sesay RN) 0843 (Given - Provider: Mariely Mcintosh LPN)2099 (Due) clopidogrel (Plavix) tablet 75 mg 75 mg, oral, Daily, First dose on Fri06/22/24 at 0900 0843 (Given - Provid er: Mariely Mcintosh LPN) furosemide (Lasix) tablet 40 mg 40 mg, oral, Daily before breakfast, First dose on Fri06/22/24 at 0700 0847 (Given - Provid er: Mariely Mcintosh LPN) gabapentin (Neurontin) capsule 600 mg 600 mg, oral, 2 times daily, First dose on Fri06/21/24 at 2100, Capsules may be opened and sprinkled on food (eg, applesauce, orange juice, pudding 2029 (Given - Provider: Massiel Sesay RN) 0842 (Given - Provider: Mariely Mcintosh LPN)2099 (Due) hydrALAZINE (Apresoline) tablet 50 mg 50 mg, oral, 2 times daily, First dose on Fri06/21/24 at 2100 2030 (Given - Provider: Massiel Sesay RN) 0842 (Given - Provider: Mariely Mcintosh LPN)2099 (Due) insulin lispro (HumaLOG) injection 0-10 Units 0-10 Units, subcutaneous, 3 times daily (morning, midday, late afternoon), First dose on Fri06/21/24 at 1745, Do not hold when patient is not eating, continue order as scheduled for hyperglycemia management. Insulin Lispro Corrective Scale #2 Hypoglycemia protocol Call LIP unit(s) if Blood Glucose is between 0 - 70 mg/dL 0 unit(s) if Blood glucose is between 71-150 2 unit(s) if Blood glucose is between 151-200 4 unit(s) if Blood glucose is between 201-250 6 unit(s) if Blood glucose is between 251-300 8 unit(s) if Blood glucose is between 301-350 10 unit(s) if Blood glucose is between 351-400 Notify provider unit(s) if Blood Glucose is greater than 400 mg/dL 1745 (Due) 0800 (Not Given - Provider: Mariely Mcintosh LPN - Reason: Patient/family refused - Comment: pt being discharged)1200 (Not Given - Provider: Mariely Mcintosh LPN - Reason: Patient/family refused - Comment: pt dc)1700 (Due) lisinopril tablet 20 mg 20 mg, oral, Daily, First dose on Fri06/21/24 at 1745 1852 (Given - Provider: Ana Guillen, WARD) 0843 (Given - Provider: Mariely Mcintosh LPN) Continuous Medication Order 06/20/2024 06/21/2024 06/22/2024 sodium chloride 0.9% infusion 125 mL/hr, intravenous, Continuous, Starting on Fri06/21/24 at 1745, For 6 hours, Recovery & On Unit, 6-12 hours post procedure. Post-Procedure Hydration Protocol ACC/AHA/SCAI 1851 (New Bag - Provider: Channing Guillen, RN)2347 (Rate/Dose Verify - Provider: Massiel Sesay RN) PRN Medication Order 06/20/2024 06/21/2024 06/22/2024 albuterol 2.5 mg /3 mL (0.083 %) nebulizer solution 3 mL 3 mL, nebulization, 4 times daily PRN, wheezing, shortness of breath, Starting on Fri06/21/24 at 1722 dextrose 50 % injection 12.5 g 12.5 g, intravenous, Every 15 min PRN, For blood glucose 41 to 70 mg/dL, Starting on Fri06/21/24 at 1722, May repeat until blood glucose level reaches 100 mg/dL or greater. Push 2 - 3 mL/minute if patient has secure IV access. dextrose 50 % injection 25 g 25 g, intravenous, Every 15 min PRN, For blood glucose less than or equal to 40 mg/dL, Starting on Fri06/21/24 at 1722, May repeat until blood glucose level reaches 100 mg/dL or greater. Push 2 - 3 mL/minute if patient has secure IV access. fentaNYL PF (Sublimaze) injection (CANCELED) As needed, Starting on Fri06/21/24 at 1435, Intraprocedure 1435 (Given - Provider: Rodrigo Chaparro RN - Comment: for sedation)1616 (Given - Provider: Rodrigo Chaparro RN - Comment: for sedation)1637 (Given - Provider: Rodrigo Chaparro RN - Comment: for sedation) glucagon (Glucagen) injection 1 mg 1 mg, intramuscular, Every 15 min PRN, low blood sugar - see comments, For blood glucose less than or equal to 40 mg/dL and no IV access, Starting on Fri06/21/24 at 1722, Give until blood glucose is 100 mg/dL or greater. If patient DOES NOT HAVE secure IV access & patient is unconscious, NPO or is unable to eat or drink. glucagon (Glucagen) injection 1 mg 1 mg, intramuscular, Every 15 min PRN, low blood sugar - see comments, For blood glucose less than or equal to 70 mg/dL and no IV access, Starting on Fri06/21/24 at 1722, Give until blood glucose is 100 mg/dL or greater. If patient DOES NOT HAVE secure IV access & patient is unconscious, NPO or is unable to eat or drink. heparin 1,000 unit/mL injection (CANCELED) As needed, Starting on Fri06/21/24 at 1445, Intraprocedure 1445 (Given - Provider: Rodrigo Chaparro RN - Comment: verified by Luis Mayers for anticoag)1452 (Given - Provider: Rodrigo Chaparro RN - Comment: verified by Luis Mayers for anticoag)1557 (Given - Provider: Rodrigo Chaparro RN - Comment: verified by Srinivasa for anticoag) iodixanol (VISIPaque) 320 mg iodine/mL injection (CANCELED) As needed, Starting on Fri06/21/24 at 1639, Intraprocedure 1639 (Given - Provider: Mary Curry MD) lidocaine PF (Xylocaine) 10 mg/mL (1 %) injection (CANCELED) As needed, Starting on Fri06/21/24 at 1438, Intraprocedure 1438 (Given - Provider: Braeden Colin MD - Comment: right groin subQ) midazolam (Versed) injection (CANCELED) As needed, Starting on Fri06/21/24 at 1435, Intraprocedure 1435 (Given - Provider: Rodrigo Chaparro RN - Comment: for sedation)1637 (Given - Provider: Rodrigo Chaparro RN - Comment: for sedation) oxyCODONE-acetaminophen (Percocet) 5-325 mg per tablet 1 tablet 1 tablet, oral, Every 6 hours PRN, pain severe (7-10), first line, Starting on Fri06/21/24 at 1722, If ordered PRN for pain, nurse is permitted to administer this medication for higher pain scores based on patient preference? Yes 2019 (Given - Provider: Massiel Sesay RN) protamine injection (COMPLETED) Continuous PRN, Starting on Fri06/21/24 at 1635, Intraprocedure 1635 (New Bag - Provider: Rodrigo Chaparro RN - Comment: given for heparin reversal) sodium chloride 0.9% infusion (COMPLETED) Continuous PRN, Starting on Fri06/21/24 at 1419, Intraprocedure 1419 (New Bag - Provider: Rodrigo Chaparro RN) vancomycin (Vancocin) in dextrose 5% IV (CANCELED) Administer over 60 Minutes, Continuous PRN, Starting on Fri06/21/24 at 1534, Intraprocedure 1534 (New Bag - Provider: Rodrigo Chaparro RN - Comment: for prophylaxis)1642 (Stopped - Provider: Cesar Denny RN) FOR RECORDS PERTAINING TO PATIENTS WHO ARE [...] BE BASED ON THE PRIMARY CLINICAL RECORDS. [facility]. provides no warranty or guarantee of the accuracy or completeness of information in this document.
[2024-12-18 12:51] LABS: Alanine Aminotransferase 22 U/L (14-59); Albumin Globulin Ratio 1.1; Albumin Level 3.5 g/dL (3.4-5.0); Alkaline Phosphatase 84 U/L (46-116); Anion Gap 11.1; Aspartate Amino Transferase 14 U/L (15-37); Bilirubin Total 0.3 mg/dL (0.2-1.0); Carbon Dioxide 30.9 mmol/L (21.0-32.0); Chloride 105 mmol/L (98-107); Chol HDL Ratio 3.6; Cholesterol 160 mg/dL (<=200); Estimated GFR (African America 58 (>=60 mL/min/1.73m^2); Estimated GFR (Non-African Ame 48 (>=60 mL/min/1.73m^2); Globulin 3.3 g/dL; Glucose 174 mg/dL (74-106); HDL Cholesterol 44 mg/dL (40-60); Sodium 142 mmol/L (136-145); Total Protein 6.8 g/dL (6.4-8.2); Triglycerides 287 mg/dL (<=150); VLDL CHOLESTEROL 57.4 mg/dL
== END 2024-12-18 12:21 | disposition home or self-care (01) ==
LOC: LAB 12:22
PROVIDERS: PCP Internal Medicine; Visit Provider Nurse Practitioner Family
DX: E78.2 Mixed hyperlipidemia (principal)
CPT/HCPCS: 36415; 80053; 80061

== ENCOUNTER 2025-02-18 05:06 | Emergency (ER) | payer MEDICARE, BC, SELFPAY ==
[2025-02-18] VITALS (40 sets, daily range): BP systolic 126–185; BP diastolic 47–107; PULSE 73–92; RESP 6–16; TEMP 36.8; O2SAT 89–100; BMI 35.2
--- NOTE | 2025-02-18 05:12 | ECG_ITS ---
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 Measurements Intervals [place] Rate: 82 P: 39 CO: 142 QRS: 38 QRSD: 86 T: 214 QT: 370 QTc: 409 Interpretive Statements 1100 Sinus rhythm [address] depression 4564 Twave abnormality, possible lateral ischemia 4664 Twave abnormality, possible inferior ischemia 9150 abnormal ECG Compared to ECG 05/04/2024 18:24:56 No significant changes Electronically Signed On 02-18-2025 5:43:38 EDT by PANCHITO TRINIDAD M.D.
--- NOTE | 2025-02-18 05:19 | ED_ITS ---
HPI HPI - General Adult General Chief complaint: Shortness of Breath/Dyspnea Stated complaint: SHORTNESS OF BREATH Time Seen by Provider: 02/18/25 05:11 History of Present Illness HPI narrative: Patient is a 69-year-old female who is presenting by EMS with mild respiratory distress. Patient's arriving with CPAP on. Patient has history of asthma, no history of CHF emphysema or COPD. Patient is coming from home. Patient wears no oxygen at home. Patient has been having cough and congestion for the past couple days no fever. No new weight gain. No new swelling to her abdomen or lower extremities. 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 Wheeler is patient's dean of instruction, Dr. Bell is her internal medicine physician. Patient was having more difficulty breathing this evening and called 911. EMS staff did a DuoNeb, 2 albuterol treatments, and also attempted once for IV access with no success. Patient does not wear oxygen during the day or at nighttime. Patient does feel much better when she arrived after CPAP has been on for approximately 20 to 30 minutes. Patient was placed on several liters of oxygen and CPAP was taken off when she did arrive, and only within about 5 minutes patient was becoming wheezy, and feeling like she wanted to have the CPAP back on again. All systems are negative except as noted/marked. All systems reviewed and otherwise negative. Nurses note and vital signs reviewed and patient is not hypoxic. General: The patient appears mild respiratory distress. Patient is resting uncomfortably on cart, sitting upright in 90 degrees. Patient is not toxic, lethargic, or listless Skin: Warm, dry, no pallor noted. There is no rash noted. No petechiae, purpura. Head: Normocephalic, atraumatic Eye: Normal conjunctiva, no drainage, EOMI. PERRL Ears, Nose, Mouth, and Throat: oral mucosa is moist. Nares patent. Mouth without vesicles. Cardiovascular: Regular Rate and Rhythm, no murmur, gallop, rub Respiratory: Patient is in mild respiratory distress, increased respiratory r ate, diminished breath sounds bilateral, faint wheezing and crackles bilateral, equal breath sounds bilateral Back: non-tender, no CVA tenderness bilaterally to percussion. No CT LS midline pain GI: Soft, obese, no pitting edema, no tenderness to palpation, no masses appreciated. No rebound, guarding, or rigidity noted. No distention Musculoskeletal: Patient has full range of motion of all of the extremities, no motor, sensory, or focal neurological deficits. Mild swelling to bilateral lower extremities equal, bilateral. Neurological: A&O x4, normal speech Psychiatric: Cooperative Related Data Home Medications ?Medication ?Instructions ?Recorded ?Confirmed apixaban 5 mg tablet (Eliquis) 5 mg PO BID 02/08/24 02/18/25 atorvastatin 80 mg tablet 80 mg PO DAILY 02/08/24 02/18/25 citalopram 20 mg tablet 20 mg PO DAILY 02/08/24 02/18/25 clopidogrel 75 mg tablet 75 mg PO DAILY 02/08/24 02/18/25 gabapentin 300 mg capsule 300 mg PO BID 02/08/24 02/18/25 insulin regular human 100 unit/mL 10 unit 02/08/24 injection solution (Novolin R Regular U-100 Insulin) lisinopril 20 mg tablet 20 mg PO DAILY 02/08/24 02/18/25 potassium chloride 20 mEq 20 meq PO BID 02/08/24 02/18/25 tablet,extended release(part/cryst) (Klor-Con M) amlodipine 10 mg tablet mg 02/18/25 carvedilol 25 mg tablet mg 02/18/25 diclofenac sodium 1 % topical gel 4 g topical QID 02/18/25 02/18/25 (Voltaren Arthritis Pain) ferrous sulfate 325 mg (65 mg 325 mg PO DAILY 02/18/25 02/18/25 iron) tablet (Neftaly-Time) furosemide 40 mg tablet mg 02/18/25 hydralazine 25 mg tablet mg 02/18/25 hydralazine 50 mg tablet mg 02/18/25 insulin glargine 100 unit/mL (3 unit subcut 02/18/25 mL) subcutaneous pen (Lantus Solostar U-100 Insulin) loratadine 10 mg capsule (Allergy 10 mg PO DAILY 02/18/25 02/18/25 Relief (loratadine)) Allergies Allergy/AdvReac Type Severity Reaction Status Date / Time Penicillins Allergy Severe Verified 02/08/24 12:18 Opioid HPI Opioid Management Most Recent Opioid Data: Last Pain Scale 6 02/18/25 06:50 02/18/25 Last Pain Intensity 0 02/09/24 09:27 02/09/24 Last MAR Pain Assessment 02/18/25 06:50 Last ORT Total Score 3 02/08/24 16:51 02/08/24 Last ORT Risk Category Low Risk 02/08/24 16:51 02/08/24 [facility] Medical History (Updated 02/18/25 @ 06:58 by Rodrigo Godfrey MD) Hypoglycemia ?E16.2 - Hypoglycemia, unspecified (ICD-10) EVA (acute kidney injury) ?N17.9 - Acute kidney failure, unspecified (ICD-10) Hypotension ?I95.9 - Hypotension, unspecified (ICD-10) Hypertension ?I10 - Essential (primary) hypertension (ICD-10) Hyperlipidemia ?E78.5 - Hyperlipidemia, unspecified (ICD-10) Colon cancer ?C18.9 - Malignant neoplasm of colon, unspecified (ICD-10) Heart disease ?I51.9 - Heart disease, unspecified (ICD-10) Diabetes ?E11.9 - Type 2 diabetes mellitus without complications (ICD-10) Surgical History (Updated 02/08/24 @ 16:43 by Letty Saleem) History of cholecystectomy ?Z90.49 - Acquired absence of other specified parts of digestive tract (ICD- 10) History of hysterectomy ?Z90.710 - Acquired absence of both cervix and uterus (ICD-10) History of partial surgical removal of colon ?Z90.49 - Acquired absence of other specified parts of digestive tract (ICD- 10) History of appendectomy ?Z90.49 - Acquired absence of other specified parts of digestive tract (ICD- 10) 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.1 - Presence of aortocoronary bypass graft (ICD-10) Family History (Updated 02/08/24 @ 16:45 by Letty Saleem) Father Family history of CHF (congestive heart failure) Family history of myocardial infarction Mother Family history of cancer Family history of diabetes mellitus Sister Family history of diabetes mellitus Family history of cancer Brother Family history of myocardial infarction Family history of stroke Social History (Updated 02/08/24 @ 16:46 by Letty Saleem) Within the past year, how often did you have a drink containing alcohol: never Score interpretation: A score less than 3 is consistent with normal alcohol consumption. Smoking status: Never smoker Non-prescribed substance use: denies use Previous occupational history: retired Highest level of school completed/degree received: 11th grade Are you now , , , , never or living with a partner: In a typical week, how many times do you talk on the telephone with family, friends, or neighbors: twice per week How often do you get together with friends or relatives: twice per week How often do you attend methodist or christianity services: never Do you belong to any clubs or organizations such as methodist groups unions, fraternal or athletic groups, or school groups: no Total score: 2 Score interpretation: A score of greater than or equal to 2 indicates the lowest level of social isolation. Little interest or pleasure in doing things: not at all Feeling down, depressed, or hopeless: not at all Feel stressed/tense/nervous/anxious/difficulty sleeping: not at all Do you think of yourself as: straight/heterosexual Gender Identity: female Exam Constitutional Vital Signs, click to edit/add: Last Vital Signs Temp 98.3 F 02/18/25 05:25 Pulse 82 02/18/25 06:10 Resp 31 H 02/18/25 05:40 BP 149/101 H 02/18/25 06:44 Pulse Ox 98 02/18/25 06:10 O2 Del Method Nasal Cannula 02/18/25 06:10 O2 Flow Rate 4 02/18/25 05:26 FiO2 3 02/18/25 06:10 Course Vital Signs Vital signs: Vital Signs Blood Pressure 185/86 H 02/18/25 05:13 Temperature 98.3 F 02/18/25 05:25 Pulse Rate 82 02/18/25 06:10 Respiratory Rate 31 H 02/18/25 05:40 Blood Pressure 149/101 H 02/18/25 06:44 Pulse Oximetry 98 02/18/25 06:10 Oxygen Delivery Method Nasal Cannula 02/18/25 06:10 Oxygen Delivery Flow Rate 4 02/18/25 05:26 Fraction of Inspired Oxygen 3 02/18/25 06:10 Medical Decision Making [facility] Narrative Medical decision making narrative: Patient seen and examined: Patient EKG shows chronic changes, chest x-ray will be done, sepsis workup will be done along with CHF/chest pain/shortness of breath workup as well. Differential diagnosis includes but is not limited to: Pulm edema, infiltrates, pneumothorax, [place], electrolyte abnormality, COPD, asthma, bronchitis, URI Diagnostics and management: Patient will have laboratory studies Relevant laboratory interpretation: Patient has white blood cell count of 18, H&H of 8.5 and 27. Patient has left shift. Patient pH is 7.38, ABG 51 Radiological studies: Please see the formal radiological report. Chest x-ray shows bilateral pulmonary edema, possible bilateral infiltrate. 0545 chest x-ray read by radiologist shows enlarged size heart, central pulmonary vascular congestion mild edema, no pleural effusion, no pneumothorax. See the official report. Reevaluation: 0540 ABG shows pH of 7.38, CO2 40, O2 51, bicarb 24 0535 initial attempts at IV has not been successful. Citlalli RN is attempting IV with pain light/ultrasound. Viv RN is attempted IV without success to the right arm, Trace HOPPER will attempt to help Sarina HOPPER with IV access as well. Shared decision making: I discussed with the patient the necessary laboratory findings and radiological findings. Social barriers to healthcare: There are no food insecurities, there is no issue with transportation, there are no insurance barriers. Disposition: I discussed with the patient chest x-ray reading this shows bilateral pulmonary edema and most likely bilateral infiltrate possibly superimposed. Patient has sepsis workup initially done. Patient will be given Lasix, Vasotec. ABG was done. Patient's had 2 albuterol breathing treatments along with a DuoNeb by EMS that. Patient was given additional DuoNeb breathing treatment when she arrived. Patient had decreased breath sounds bilateral, faint crackles to bilateral bases along with wheezing. Patient is maintaining oxygen at 91 to 92% on 4 L nasal cannula. 0550 patient will be placed on BiPAP for bilateral pulmonary edema/congestive heart failure Procedure note: Ultrasound-guided IV access, left arm, 2 inch 20-gauge performed by Patient had multiple attempts by nursing staff attempting to get IV access without success. Ultrasound guidance was used by Dr. Godfrey. Patient to the proximal aspect of the left AC, lateral aspect, if vein was identified. Using a 2 inch 20-gauge catheter, IV access was obtained by Dr. Godfrey. Patient had nonpulsatile venous color blood access. Lab work was able to be drawn. Patient currently has good functioning IV, patient will start receiving medication and labs will be sent as well. Patient Tolerated procedure without difficulty. No hematoma occurred. Minimal bleeding occurred during procedure. Sarina HOPPER and Viv RN were able to obtain labs and secure IV. [address] Gleason. She would like to wait for the second troponin to return before she accepts admission. Brief case presentation was given to her and she is aware of pulm edema, BiPAP, normal EKG. 0700 patient will be transition to Dr. Mckeon. He is aware to follow-up with the second troponin and call and speak to Dr. Gleason for admission. Patient troponin 277, BNP 1838. Patient is doing much better on BiPAP and feels much more comfortable breathing much better. Vital signs then transitioned his blood pressure 153/55, 98% on BiPAP, heart rate 78. Critical care time 45 minutes exclusive from separate billable procedures that were performed. The following was considered in the determination of critical care but not limited to the level of medical decision making, intensive cardiac and/or respiratory monitoring, frequent vital sign monitoring, evaluation of laboratory studies, evaluation of radiographic studies, oxygen monitoring, and constant monitoring and speaking to family at bedside Lab Data Labs: Lab Results 02/18/25 02/18/25 Range/Units 05:20 06:00 WBC 18.2 H (4.0-11.0) 10^3/uL RBC 3.08 L (4.20-5.40) 10^6/uL Hgb 8.5 L (12.0-16.0) g/dL Hct 27.8 L (36.0-48.0) % MCV 90.3 (81.0-99.0) fL MCH 27.6 (26.7-34.0) pg MCHC 30.6 (29.9-35.2) g/dL RDW 15.9 H (11.0-15.0) % Plt Count 236 (150-450) 10^3/uL MPV 11.2 (9.5-13.5) fL Seg Neuts % (Manual) 79.0 H (43.0-75.0) Lymphocytes % (Manual) 10.0 L (20.5-60.0) % Monocytes % (Manual) 10.0 (1.7-12.0) % Eosinophils % (Manual) 1.0 (0.9-7.0) % Basophils % (Manual) 0.0 L (0.2-2.0) % Neutrophils # (Manual) 14.37 H (1.4-6.5) 10^3/uL Lymphocytes # (Manual) 1.82 (1.20-3.80) 10^3/uL Monocytes # (Manual) 1.82 H (0.30-0.80) 10^3/uL Eosinophils # (Manual) 0.18 (0.00-0.70) 10^3/uL Basophils # (Manual) 0.00 (0.00-0.10) 10^3/uL PT 10.7 (9.0-11.6) sec INR 1.01 Puncture Site R radial ABG pH 7.385 (7.350-7.450) ABG pCO2 40.1 (35.0-45.0) mmHg ABG pO2 51.0 L* (80.0-100.0) mmHg ABG HCO3 24.0 (22.0-26.0) mmol/L ABG O2 Saturation 86.1 % ABG Base Excess -1.1 (-2.0-2.0) mmol/L Jean-Claude Test Positive (POSITIVE) O2 Liters/Min 4 Sodium 136 (136-145) mmol/L Potassium 4.7 (3.5-5.1) mmol/L Chloride 104 (98-107) mmol/L Carbon Dioxide 26.2 (21.0-32.0) mmol/L Anion Gap 10.5 BUN 40.0 H (7.0-18.0) mg/dL Creatinine 1.39 H (0.55-1.02) mg/dL Est GFR ( Amer) 45 L (>=60 mL/min/1.73m^2) Est GFR (Non-Af Amer) 37 L (>=60 mL/min/1.73m^2) BUN/Creatinine Ratio 28.8 Glucose 229 H (74-106) mg/dL Calcium 8.5 (8.5-10.1) mg/dL Magnesium 2.0 (1.8-2.4) mg/dL Total Bilirubin 0.5 (0.2-1.0) mg/dL AST 17 (15-37) U/L ALT 21 (14-59) U/L Alkaline Phosphatase 94 (46-116) U/L Troponin I High Sens 277.6 H* (4.0-51.3) pg/mL NT-Pro-B Natriuret Pep 1838.0 H* (<=900.0) pg/mL Total Protein 6.7 (6.4-8.2) g/dL Albumin 3.4 (3.4-5.0) g/dL Globulin 3.3 g/dL Albumin/Globulin Ratio 1.0 Lipase 26.0 (16.0-77.0) U/L ECG Data Attestation: I personally reviewed and interpreted this ECG as follows: (EKG interpretation. Baseline normal sinus rhythm at 82 beats a minute. Normal axis deviation. No acute ST elevation, patient does have ST depression to the inferior and lateral leads, T wave inversion, QTc of 409. Compared to old EKG on May 04, 2024, patient has similar diffuse ST changes as we) Discharge Plan Discharge Patient Disposition: Still a Patient
--- OUTSIDE RECORDS SUMMARY | 2025-02-18 05:19 | XMS_ITS | CCD ---
Author Organization [facility] Care Team Providers Care [employer] Superintendent Name Role Phone Geo Mathew Unavailable CHASE AMAYA Attending Unavailable UNKNOWN, PHYSICIAN Referring Unavailable NIK BELL Primary Care Unavailable ANDREW LOONEY Admitting Unavailable MONSE Bell Primary Care Provider [phone] MD Geo Mathew Attending Provider DR NIK [...] Unavailable RAY, DR OAKES Primary Care Unavailable MOUKARBEVELYNE, DR FLANAGAN Consulting Unavailable RAY, DR OAKES [...] Care Provider MONSE Bell Primary Care Provider KIKA Gilmore Attending Provider MD Rodrigo Yousif Attending Provider [phone] Darrell BUTT, PhD, Trace Unavailable Cruz ESCAMILLA, MARGARETH H Attending Unavailable NAVI CONKLIN Primary Care Unavailable FRANCINE, MRAGARETH H Attending Unavailable MICHEAL NOVA Referring Unavailable NAVI CONKLIN Primary Care Unavailable JEREMY TAREK Admitting Unavailable JEREMY TAREK Attending Unavailable NAVI CONKLIN Primary Care Unavailable NAVI CONKLIN Primary Care Unavailable TABIRTA, TERRI I Referring Unavailable Nik Bell MD Unavailable Friday TIRE MOUNTER, Magalie Unavailable Unavailable Primary Care Provider UnavailNavi Gonzales DO Primary Care Provider Aakash HOPPER, Lauren Unavailable [phone] CARMELLA ALLEN Attending Unavailable PANCHITO TRINIDAD Attending Unavailable VIVI, PANCHITO Attending Unavailable PANCHITO TRINIDAD Attending Unavailable Darrell BUTT, PhD, Trace Unavailable Trace Noe Attending Unavailable Trace Ramírez Referring Unavailable Trace Ramírez Attending Unavailable Trace Ramírez Referring Unavailable Trace Ramírez Attending Unavailable Trace Ramírez Referring Unavailable Trace Ramírez Attending Unavailable Trace Ramírez Referring Unavailable Darrell BUTT, PhD, Trace Unavailable Cruz Browne TIRE MOUNTER, Lesa Unavailable Unavailable Ray II, Nik Primary Care Provider Ross Martinez APRN Emergency Provider Edvin Casper MD Admit Provider Edvin Casper MD Attending Provider ALEXIS GILMORE Attending Unavailable JOHNNA CEDEÑO Attending Unavailable GALA, JOHNNA Aceves Attending Unavailable BHAVIN, TEENA Bull Attending Unavailable ALEXIS GILMORE Attending Unavailable ALEXIS GILMORE Attending Unavailable ALEXIS GILMORE Attending Unavailable ZAHLMAISHA, TEENA Bull Attending Unavailable ZAHLER, TEENA Bull Attending Unavailable ZAHLER, TEENA Bull Attending Unavailable ZAHLER, TEENA Bull Attending Unavailable ZAHLER, TEENA Bull Attending Unavailable GALA, JOHNNA Aceves Attending Unavailable ALEXIS GILMORE Attending Unavailable MANJULA FULTON Attending Unavailable BHAVIN, TEENA Bull Attending Unavailable ALEXIS GILMORE Attending Unavailable MANDO, ALEXIS Smart Attending Unavailable GALA, JOHNNA Aceves Attending Unavailable BHAVIN, TEENA Bull Attending Unavailable Rodrigo Yousif Admitting Unavailable Rodrigo Yousif Attending Unavailable Nik Bell Primary Care Unavailable Alexis Gilmore Admitting Unavailable Alexis Gilmore Attending Unavailable Nik Bell Primary Care Unavailable Edvin Casper Admitting Unavailab Edvin Wilhelm Attending Unavailab Nik Moctezuma Primary Care Unavailable Rodrigo Yousif Admitting Unavailable Rodrigo Yousif Attending Unavailable Nik Bell Primary Care Unavailable Allergies Allergy Classification Reported Allergen(s) Allergy Type Date of Onset Reaction(s) Facility (1 source) Penicillin V Drug Allergy ASP64 IPWireless Other (7 sources) Penicillins; Translations: [PENICILLINS] Drug allergy (disorder) 9 Hives [facility] Repository (6 sources) Penicillin; Translations: [PENICILLIN] Drug Allergy 9 hives, Unknown [facility] (20 sources) Penicillins Drug Allergy 4 Hives, Unknown [facility] (4 sources) Penicillins Drug Allergy 4 Hives, Other, Unknown [facility] (1 source) Penicillins Drug allergy (disorder) 4 [facility] Repository Medications Current Medications Medication Drug Class(es) Dates [...] for wheezing or shortness of breath. Active amLODIPine 10 mg oral tablet (20 sources) Dihydropyridine Calcium Channel Chasity Start: 05-11-2024 take 1 tablet by mouth once daily Amlodipine 10 mg tablet Active 10 MG PO Daily February 15, 2025 12:00am Start: 01-13-2023 End: 02-15-2025 take 1 tablet by mouth once daily Amlodipine 5 mg tablet Discontinued 5 MG PO Daily January 13, 2023 1:00am February 15, 2025 6:47pm atorvastatin 80 mg oral tablet (20 sources) HMG-CoA Reductase Inhibitor Start: 05-05-2019 take 1 tablet by mouth once daily Atorvastatin 80 mg tablet Active 80 MG PO Daily January 13, 2023 1:00am benzonatate 200 mg oral capsule (7 sources) [...] 25 mg oral tablet (20 sources) alpha-Adrenergic Chasity, beta-Adrenergic Chasity Start: 01-28-2023 take 1 tablet by mouth every twelve hours carvedilol (Coreg) 25 MG tablet Take 25 mg by mouth every 12 (twelve) hours. 0 01/28/2023 Active Start: 01-13-2023 take 0.5 tablet by m outh every twelve hours carvedilol (Coreg) 25 mg tablet Take 0.5 tablets (12.5 mg) by mouth every 12 hours. 01/13/2023 Active Start: 01-13-2023 take 1 tablet by west th every twelve hours carvedilol (Coreg) 25 mg tablet Take 1 tablet (25 mg) by mouth every 12 hours. 01/13/2023 Active Start: 01-13-2023 take 1 tablet by west th twice daily Carvedilol 25 mg tablet Active 25 MG PO Twice daily January 13, 2023 1:00am Start: 01-13-2023 take 12.5 mg by mout h twice daily Carvedilol Active 12.5 MG PO Twice daily January 13, 2023 1:00am carvedilol (Core g) 25 MG tablet Take 12.5 mg by mouth in the morning and 12.5 mg before bedtime. Active take 1 capsule by mo alh once daily Coreg CR 20 mg capsule, extended release take 1 capsule by oral route every day 20 MG - Active citalopram 20 mg oral tablet (20 sources) Serotonin Reuptake Inhibitor Start: 01-13-2023 take 1 tablet by mouth twice daily citalopram (CeleXA) 20 mg tablet Take 1 tablet (20 mg) by mouth 2 times a day. 01/13/2023 Active Start: 01-13-2023 take 1 tablet by west once daily Citalopram 20 mg tablet Active 20 MG PO Daily January 13, 2023 1:00am Start: 05-05-2019 take 1 tablet by west th once daily citalopram 40 mg tablet take 1 tablet by oral route every day 40 MG - Active take 0.5 tablet by m outh every twenty-four hours Citalopram Hydrobromide 40 MG 0.5 tablet Orally Once a day Active clopidogrel 75 mg oral tablet (20 sources) P2Y12 Platelet Inhibitor Start: 01-08-2024 take 1 tablet by mouth once daily Clopidogrel 75 mg tablet Active 75 MG PO Daily May 18, 2024 12:00am take 1 tablet by west every twenty-four hours Clopidogrel Bisulfate 75 MG [...] days 120 mL 09/22/2024 10/02/2024 Active Continuous Glucose Pomology Teacher (Dexcom G7 Pomology Teacher) device (20 sources) Start: 03-05-2024 Continuous Glucose Pomology Teacher (Dexcom G7 Pomology Teacher) device Indications: Type 2 diabetes mellitus with [...] 1 Device yearly 1 each 03/05/2024 Active Continuous Glucose Sensor (Dexcom G7 Sensor) misc (3 sources) Start: 02-03-2025 Continuous Glucose Sensor (Dexcom G7 Sensor) misc Indications: Type 2 diabetes mellitus with hyperglycemia, with long-term current use of insulin (CMS/HCC) 1 UNITS EVERY 10 (TEN) DAYS 9 each 3 02/03/2025 Active dabigatran etexilate 150 mg oral capsule (6 sources) Start: 12-20-2024 take 1 capsule by mouth in the morning dabigatran etexilate (Pradaxa) 150 MG capsule Indications: Paroxysmal atrial fibrillation (CMS/HCC) Take 1 capsule (150 mg) by mouth in the morning and 1 capsule (150 mg) before bedtime. Do not crush or chew.. 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 0 Active ferrous sulfate 325 mg oral tablet (12 sources) Start: 02-16-2025 take 1 tablet by mouth every other day Ferrous Sulfate 325 mg (65 mg iron) tablet Active 325 MG PO Q2D 15 February 16, 2025 12:00am Start: 01-13-2023 End: 05-18-2024 take 1 tablet by mouth once daily Ferrous Sulfate 140 mg (45 mg iron) Tablet Extended Release Discontinued 140 MG PO Daily January 13, 2023 1:00am May 18, 2024 10:44am ferrous sulfate 325 (65 Fe) MG tablet Take 325 mg by mouth in the morning and 325 mg at noon and 325 mg in the evening. Take with meals. 0 Active Ferrous Sulfate Active furosemide 40 mg oral tablet (20 sources) Loop Diuretic Start: 06-22-2024 take 40 mg by mouth once daily before breakfast 40 mg, oral, Daily before breakfast, First dose on Fri06/22/24 at 0700 Start: 03-19-2024 End: 03-19-2025 take 3 tablets by mouth in the morning furosemide (Lasix) 20 MG tablet Take 60 mg by mouth in the morning. 03/19/2024 03/19/2025 Active Start: 03-19-2024 End: 03-19-2025 take 1 tablet by mouth once daily furosemide 20 mg tablet take 1 tablet by oral route every day 20 MG - Active Start: 01-13-2023 Furosemide 40 mg tablet Active 60 MG PO Daily January 13, 2023 1:00am Start: 01-13-2023 take 1 tablet by west th once daily furosemide (Lasix) 40 MG tablet Indications: Edema, unspecified type TAKE 1 TABLET BY MOUTH EVERY DAY 90 tablet 12/20/2024 Active Start: 01-13-2023 take 60 mg by [...] 3 09/22/2024 09/22/2025 Active Start: 05-05-2019 take 1 capsule by mo uth twice daily Gabapentin 300 mg capsule Active 300 MG PO Twice daily January 13, 2023 1:00am glucagon (rdna) 1 mg injection (2 sources) Antihypoglycemic Agent Start: 06-21-2024 50 ml glucose 500 mg/ml prefilled syringe (2 sources) Start: 06-21-2024 hydrALAZINE hydrochloride 50 mg oral tablet (20 sources) Arteriolar Vasodilator Start: 12-20-2024 take 1 tablet by mouth twice daily Hydralazine 25 mg tablet Active 25 MG PO Twice daily February 15, 2025 12:00am Start: 08-22-2024 hydrALAZINE (A presoline) 50 MG tablet Take 75 mg by mouth in the morning and 75 mg before bedtime. 08/22/2024 Active Start: 05-10-2024 End: 05-10-2025 take 1 tablet by mouth twice daily Hydralazine 50 mg tablet Active 50 MG PO Twice daily February 15, 2025 12:00am Start: 01-13-2023 End: 02-15-2025 Hydralazine 100 mg tablet Discontinued 50 MG PO Twice daily January 13, 2023 1:00am February 15, 2025 6:39pm Start: 01-13-2023 take 50 mg by mouth twice yarely y Hydralazine Active 50 MG PO Twice daily January 13, 2023 1:00am Start: 01-13-2023 take 100 mg by mouth twice daily Hydralazine Active 100 MG PO Twice daily January 13, 2023 1:00am 3 ml insulin glargine 100 unt/ml pen injector (20 sources) Insulin Analog Start: 12-30-2024 End: 12-30-2025 Insulin Glargine (Lantus Solostar U-100 Insulin) 100 unit/mL (3 mL) insulin pen Active 80 UNIT SUBCUT Bedtime February 15, 2025 12:00am Start: 09-22-2024 End: 10-11-2025 insulin glargine (Basaglar KwikPen) 100 UNIT/ML pen Indications: Type 2 diabetes mellitus with hyperglycemia, with long-term current use of insulin (CMS/HCC) Inject 75 Units under the skin at bedtime 24 mL 09/22/2024 12/30/2024 Discontinued Start: 09-22-2024 End: 09-22-2024 inject 70 [IU] [...] under the skin at bedtime 22.5 mL 09/22/2024 09/22/2024 Discontinued (Reorder) Start: 03-18-2024 End: [...] 2 diabetes mellitus with hyperglycemia, unspecified whether rodent exterminator insulin use (CMS/HCC) INJECT 86 UNITS UNDER [...] 01/29/2024 09/22/2024 Discontinued (Reorder) Start: 01-13-2023 inject 10 [IU] by durant bcutaneous injection once before mealtime Insulin Regular Human (Novolin R Flexpen) 100 unit/mL (3 mL) Insulin Pen Active 10 UNIT SUBCUT 3x/Day before meals January 13, 2023 1:00am if less then 150 does not take insulin if its greater the 150 takes 10units Start: 01-13-2023 inject 9 [IU] by sub [...] Active ketorolac tromethamine 5 mg/ml ophthalmic solution (20 sources) Nonsteroidal Anti-inflammatory Drug, Cyclooxygenase Inhibitor Start: [...] sources) Angiotensin Converting Enzyme Inhibitor Start: 05-05-2019 take 1 tablet by mouth once daily Lisinopril 20 mg Tablet Active 20 MG PO Daily January 13, 2023 1:00am loratadine 10 mg oral tablet (2 sources) Start: 02-15-2025 take 1 tablet by mouth once daily Loratadine (Allergy Relief (Loratadine)) 10 mg tablet Active 10 MG PO Daily February 15, 2025 12:00am Multivitamin (Daily Multi-Vitamin) tablet (2 sources) Start: 02-15-2025 take 1 tablet by mouth once daily Multivitamin (Daily Multi-Vitamin) tablet Active 1 TAB PO Daily February 15, 2025 12:00am Multivitamin preparation (3 sources) Multiple Vitamin s tablet qd - Active ofloxacin 3 mg/ml ophthalmic solution (1 source) Quinolone Antimicrobial Start: 07-13-2024 End: 07-14-2024 take 1 drop(s) into the eye(s) five times daily ofloxacin (Ocuflox) 0.3 % ophthalmic solution Indications: Cataract mature, total senile Administer 1 drop into the right eye 5 (five) times a day for 1 day Starting 1 day before surgery, continue after surgery as directed 5 mL 1 07/13/2024 07/14/2024 Active ondansetron 4 mg disintegrating oral tablet (7 sources) Serotonin-3 Receptor Antagonist Start: 02-12-2024 take 1 tablet by mouth every eight [...] extended release oral tablet (20 sources) Start: End: take 1 tablet by mouth once daily Potassium Chloride 20 mEq tablet,ER particles/crystals Active 20 MEQ PO Daily January 13, 2023 1:00am prednisoLONE acetate 10 mg/ml ophthalmic suspension (20 sources) Corticosteroid Start: prednisoLONE acetate (Pred-Forte) 1 % ophthalmic suspension 09/01/2024 Active [...] / oxyCODONE hydrochloride 5 mg oral tablet (9 sources) Opioid Agonist Start: 06-15-2024 End: 06-25-2024 take 1 tablet by mouth every six hours for pain oxyCODONE-acetamino phen (Percocet) 5-325 mg tablet Indications: PAD (peripheral artery disease) ([facility]-HCC) Take 1 tablet by mouth every 6 hours if needed for severe pain (7 - 10) for up to 7 days. 5 tablet 06/15/2024 06/22/2024 Discontinued (Stop Taking at Discharge) Start: 06-03-2024 End: 02-15-2025 take 1 tablet by mouth every eight hours as needed for pain Oxycodone-Acetaminophen (Percocet) 5-325 mg tablet Discontinued 1 TAB PO Every 8 hours as needed for pain 29 08June 03, 2024 February 15, 2025 6:45pm Start: 12-09-2023 End: 12-14-2023 take 1 tablet by mouth every eight hours for pain oxyCODONE-acetaminophen (Percocet) 5-325 MG tablet Indications: Pain Take 1 tablet by mouth every 8 (eight) hours if needed for severe pain for up to 5 days 15 tablet 0 12/09/2023 12/14/2023 Active albuterol 0.833 mg/ml / ipratropium bromide 0.167 mg/ml inhalation solution (18 sources) Anticholinergic, beta2-Adrenergic Agonist Start: 09-22-2024 End: 12-30-2024 ipratropium-albuterol (Duo-Neb) 0.5-2.5 mg/3 mL nebulizer solution Indications: Acute asthmatic bronchitis (CMS/HCC) Take 3 mL by nebulization in the morning and 3 mL in the evening and 3 mL before bedtime. 180 mL 11 09/22/2024 12/30/2024 Discontinued (Cost of medication) Albuterol Sulfate (2.5 MG/ 3 ML) 2.5 MG/3ML 0.083% Nebulization Solution (3 sources) Albuterol Sulfat e (2.5 MG/ 3 ML) 2.5 MG/3ML 0.083% Nebulization Solution 3ml Inhalation 4 times a day Not-Taking Albuterol Sulfat e (2.5 MG/ 3 ML) 2.5 MG/3ML 0.083% Nebulization Solution 3ml Inhalation 4 times a day Active apixaban 5 mg oral tablet (20 sources) Factor Xa Inhibitor Start: 08-23-2024 End: 12-30-2024 take 1 tablet by mouth in the morning apixaban (Eliquis) 5 MG tablet Indications: Paroxysmal atrial fibrillation (CMS/HCC) Take 1 tablet (5 mg) by mouth in the morning and 1 tablet (5 mg) before bedtime. 200 tablet 1 08/23/2024 12/30/2024 Discontinued (Cost of medication) Start: 01-13-2023 take 1 tablet by west [...] 2023 1:00am aspirin 81 mg chewable tablet (11 sources) Platelet Aggregation Inhibitor, Nonsteroidal Anti-inflammatory Drug Start: 01-13-2023 End: 05-18-2024 take 1 tablet by mouth once daily Aspirin 81 mg Tablet,Chewable Discontinued 81 MG PO Daily January 13, 2023 1:00am May 18, 2024 10:44am Baby Aspirin Act renu Continuous Blood Gluc Sensor (Dexcom G7 Sensor) [facility] (20 sources) Start: 12-15-2023 End: 02-03-2025 Continuous Blood Gluc Sensor (Dexcom G7 Sensor) [facility] [place] Indications: Type 2 diabetes mellitus with hyperglycemia, with long-term current use of insulin ([facility]) 1 Disk Every 10 (ten) days 3 each 12/15/2023 02/03/2025 Discontinued Start: 12-15-2023 Continuous Blo od Gluc Sensor (Dexcom G7 Sensor) [facility] [place] Indications: Type 2 diabetes mellitus with hyperglycemia, with long-term current use of insulin ([facility]) 1 Disk Every 10 (ten) days 3 each 12/15/2023 Active dicyclomine hydrochloride 20 mg oral tablet (20 sources) Anticholinergic Start: 01-13-2023 End: 05-19-2024 take 1 tablet by mouth three times daily Dicyclomine 20 mg Tablet Discontinued 20 MG PO Three times daily January 13, 2023 1:00am May 19, 2024 8:19am take 1 tablet by west th four times daily as needed dicyclomine (Bentyl) 20 MG tablet Take 2 0 mg by mouth 4 (four) times a day as needed. Active Insulin Glargine-Yfgn 100 unit/mL solution (2 sources) Start: 05-18-2024 End: 02-15-2025 Insulin Glargine-Yfgn 100 unit/mL solution Discontinued 50 UNIT SUBCUT Bedtime May 18, 2024 12:00am February 15, 2025 6:44pm F-[id number] 2 3-35-2 MG (3 sources) take 1 tablet by mouth twice daily D-[id number] 2 3-35-2 MG 1 tablet Orally Twice a day Not-Taking LORazepam 0.5 mg oral tablet (20 sources) Benzodiazepine End: 12-30-2024 take 1 tablet by mouth every eight hours as needed LORazepam (Ativan) 0.5 MG tablet Take 0.5 mg by mouth every 8 (eight) hours if needed 12/30/2024 Discontinued (Therapy completed) take 1 tablet by west th every twenty-four hours LORazepam 0.5 MG 1 tablet at bedtime as needed Orally Once a day Not-Taking methylPREDNISolone (2 sources) Corticosteroid Start: 09-22-2024 End: 09-29-2024 methylPREDNISolone (Medrol Dospak) 4 MG tablets Indications: Acute asthmatic bronchitis ([facility]) Follow schedule on package instructions 21 tablet 09/22/2024 09/29/2024 metoprolol tartrate 100 mg oral tablet (3 sources) beta-Adrenergic Chasity take 1 tablet by mouth every twelve hours Metoprolol Tartrate 100 MG 1 tablet with food Orally Twice a day Not-Taking Semaglutide (7 sources) Start: 01-13-2023 End: 05-18-2024 inject 1 mg by subcutaneous injection every [...] Classification Problem Date Documented Da te Episodic/Chronic Abdominal pain (3 sources) Abdominal pain; Translations: [Unspecified abdominal pain] Onset: 5 02-15-2025 Episodic Acute myocardial infarction (2 sources) Non-ST elevation [...] Translations: [Age-related nuclear cataract, bilateral] Onset: 4 Resolved: 5 Chronic Chronic ulcer of skin (20 sources) [...] disease (20 sources) 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 EHR Cmte Disorders of lipid metabolism (20 sources) Pure hypercholesterolemia, unspecified; Translations: [Mixed hyperlipidemia] Onset: 2 06-04-2023 Chronic Comment on above: Problem List clean-u p per request of Phys. EHR Cmte Diverticulosis and diverticulitis (20 sources) Diverticulosis of [...] [Benign essential hypertension] Onset: 2 06-04-2023 Chronic Comment on above: Problem List clean-u p per request of Phys. EHR Cmte Gastritis and duodenitis (20 sources) Atrophic gastritis; [...] Translations: [Osteomyelitis, unspecified] Onset: 3 06-24-2023 Chronic Malaise and fatigue (4 sources) Asthenia; Translations: [Weakness] 02-15-2025 Episodic Menopausal disorders (20 sources) Decreased estrogen level; Translations: [Other primary ovarian failure] Onset: 7 06-24-2023 Chronic Mycoses (8 sources) Pain in toe; Translations: [Tinea unguium] 09-27-2024 Episodic Occlusion or stenosis of precerebral arteries (4 sources) Occlusion and stenosis of bilateral carotid arteries; Translations: [Carotid artery stenosis] Onset: 5 Chronic Comment on above: Problem List clean-u p per request of Phys. EHR Cmte Osteoarthritis (1 source) Unspecified osteoarthritis, unspecified site; Translations: [UNSPECIFIED OSTEOARTHRITIS UNS SITE] Onset: 2 Chronic Other acquired deformities (4 sources) Contracture of joint of right ankle; Translations: [Contracture, right ankle] 12-09-2024 Chronic Other aftercare (1 source) [facility] (current) use of anticoagulants; Translations: [DIP TANKER CURRNT USE ANTICOAGULANTS] Onset: 3 Episodic Other aftercare (1 source) Other rodent exterminator (current) drug therapy; Translations: [OTH DIP TANKER CURRENT DRUG THERAPY] Onset: 3 Episodic Other aftercare (1 source) manager terminal (current) use of antithrombotics/antipl atelets; Translations: [SHELTER ANTITHROMBOT/ANTIPLATL ETS] Onset: 3 Episodic Other aftercare (1 source) manager terminal (current) use of insulin; Translations: [SHELTER CURRENT USE OF INSULIN] Onset: 3 Episodic Other aftercare (1 source) manager terminal (current) use of aspirin; Translations: [SHELTER CURRENT USE OF ASPIRIN] Onset: 3 Episodic Other circulatory disease (2 sources) Peripheral vascular angioplasty status; Translations: [Peripheral vascular angioplasty status] Onset: 4 Episodic Other circulatory disease (2 sources) Low blood pressure; Translations: [Hypotension, unspecified] 09-30-2024 Episodic Other connective tissue disease (4 sources) Calcaneal spur of right foot; Translations: [Calcaneal spur, right foot] 12-09-2024 Episodic Other connective tissue disease (4 sources) Right achilles tendonitis; Translations: [Achilles tendinitis, right leg] 12-09-2024 Episodic Other connective tissue disease (1 source) Musculoskeletal pain; Translations: [Myalgia, other site] 02-16-2025 Episodic Other connective tissue disease (1 source) Myalgia, other site; Translations: [Myalgia, other site] Onset: 5 Episodic Other eye disorders (3 sources) Vitreous hemorrhage, bilateral Chronic Other eye disorders (3 sources) Vitreous hemorrhage Onset: 2 Chronic Other eye disorders (12 sources) Vitreous hemorrhage, left eye Chronic Other eye disorders (2 sources) Dry eyes; Translations: [Dry eye syndrome of bilateral lacrimal glands] Onset: 5 02-15-2025 Episodic Other gastrointestinal disorders (20 sources) Irritable bowel [...] [PAIN IN LEFT WRIST] Onset: 3 Episodic Other screening for suspected conditions (not mental disorders or infectious disease) (2 sources) Patient encounter status; Translations: [Encounter for screening mammogram for malignant neoplasm of breast] 12-30-2024 Episodic Peripheral and visceral atherosclerosis (20 sources) Peripheral vascular disease; Translations: [Peripheral vascular disease, unspecified] Onset: 1 Resolved: 1 Chronic Residual codes; unclassified (2 sources) Pain; Translations: [Pain, unspecified] 06-03-2024 Episodic Retinal detachments; defects; vascular occlusion; and retinopathy (2 sources) Bilateral epiretinal membrane of eyes; Translations: [Puckering of macula, bilateral] Onset: 5 02-15-2025 Chronic Screening and history of mental health [...] W/AND (SUSP) EXPOS COVID-19] Onset: 2 Unclassified (1 source) A [facility] screening has identified you as FRAIL or AT RISK FOR FRAILTY. This puts you at a higher risk for infection, illness, falls, and other injuries. Here are four ways to help you reduce your risk of frailty: 1. IDENTIFY EARLY SIGNS OF FRAILTY Discuss contributing factors and concerns with your doctor 2. BE ACTIVE Walking and light strengthening exercises will help reduce weakness 3. EAT WELL Aim for three healthy meals a day that are high in protein 4. THINK POSITIVE Keep your mind active by being sociable and continuing to learn References: Stay Strong: Four Ways to Beat the Frailty Risk [email or web address] eyp-zrc-ykjfxnqodt/sta i-mxxeop-bweu-ways-to- whiy-nes-xlf ilty-risk 02-16-2025 Viral infection (1 source) Disease caused by [...] classified, initial encounter] Onset: 04-15-2013 06-24-2023 Episodic Deficiency and other anemia (1 source) Iron deficiency anemia, unspecified; Translations: [IRON DEFICIENCY ANEMIA UNSPECIFIED] Onset: 07-10-2022 Episodic Deficiency and other anemia (1 source) Anemia; Translations: [Anemia, unspecified] 06-15-2024 Episodic Gangrene (20 sources) Gangrenous disorder; Translations: [...] [Pain in right toe(s)] 07-09-2024 Episodic Other eye disorders (20 sources) Hemorrhage of right vitreous body; Translations: [Vitreous hemorrhage, right eye] Onset: 05-05-2024 Resolved: 02-15-2025 05-05-2024 Chronic Other lower respiratory disease (3 sources) Shortness [...] [PT INTENT UNDERDOS MED OTH REASON] Onset: 08-23-2022 Episodic Residual codes; unclassified (1 source) Acute pain; Translations: [Pain, unspecified] 06-22-2024 Episodic Unclassified (1 source) CONTACT W/AND (SUSP) EXPOS COVID-19; Translations: [CONTACT W/AND (SUSP) EXPOS COVID-19] Onset: 07-21-2022 Unclassified (7 sources) DM with PDR without ME (chief complaint) Onset: 06-30-2024 Resolved: 10-21-2024 Unclassified (3 sources) Possible VH (chief complaint) Onset: 05-06-2024 Unclassified (3 sources) 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) Onset: 09-27-2022 Unclassified (3 sources) diabetic eye exam (chief complaint) NO VISION CHANGES (chief complaint) Onset: 10-10-2020 Unclassified (6 sources) diabetic retinopathy (chief complaint) denies vision changes (chief complaint) Onset: 10-26-2019 Resolved: 08-29-2020 Unclassified (3 sources) diabetic retinopathy (chief complaint) denies new vision change (chief complaint) Onset: 09-22-2019 Unclassified (3 sources) diabetic retinopathy (chief complaint) Decreased vision (chief complaint) Onset: 05-05-2019 Unclassified (2 sources) PDR (chief complaint) Onset: 08-04-2024 Urinary tract infections (1 source) Urinary tract infection, site not specified; Translations: [UTI SITE NOT SPECIFIED] Onset: 07-10-2022 Episodic Results Test Name Value Interpretation Reference Range Facility A1C with Estimated Average G monster 02-16-2025 Glucose [Mass/Vol] 194 mg/dL Normal [facility] Comment on above: Order Comment: pt is getting an ultrasound Result Comment: PERF ORMED BY: [place] [address] PATHOLOGIST CLIENT SERVICE ASSOCIATE SANKET KIRKPATRICK M.D. Performed By: #### [facility] #### [address] HbA1c (Bld) [Mass fraction] 8.4 % High 4.3-5.6 [facility] Comment on above: Order Comment: pt is getting an ultrasound Result Comment: Incr eased risk for diabetes: 5.7 - 6.4 diabetes: >6.4 glycemic control for adults with diabetes: <7.0 Performed By: #### A [facility] #### [facility] [address] Alanine aminotransferase [En zymatic activity/volume] in Serum or PlasmaOrdered By: Edvin Casper on 02-16-2025 ALT [Catalytic activity/Vol] Alanine aminotransferase [Enzymatic activity/volume] in Serum or Plasma 752 [facility] Albumin [Mass/volume] in Ser um or Plasma by Bromocresol green (BCG) dye binding methoOrdered By: Edvin Casper on 02-16-2025 Albumin BCG dye [Mass/Vol] Albumin [Mass/volume] in Serum or Plasma by Bromocresol green (BCG) dye binding metho 3.5-5.7 [facility] Alkaline phosphatase [Enzyma tic activity/volume] in Serum or PlasmaOrdered By: Edvin Casper on 02-16-2025 ALP [Catalytic activity/Vol] Alkaline phosphatase [Enzymatic activity/volume] in Serum or Plasma 34-104 [facility] Aspartate aminotransferase [ Enzymatic activity/volume] in Serum or PlasmaOrdered By: Edvin Casper on 02-16-2025 AST [Catalytic activity/Vol] Aspartate aminotransferase [Enzymatic activity/volume] in Serum or Plasma 13-39 [facility] Basophils Auto (Bld) [#/Vol] Ordered By: Edvin Casper on 02-16-2025 Basophils (Bld) [#/Vol] Automated basoph il count 0.0-0.2 [facility] Basophils/100 WBC Auto (Bld) Ordered By: Edvinadrian Morochowa on 02-16-2025 Basophils/100 WBC (Bld) Automated basophil % . [facility] Bilirubin.total [Mass/volume ] in Serum or PlasmaOrdered By: Edvin Casper on 02-16-2025 Bilirubin [Mass/Vol] Bilirubin.total [Mass/volume] in Serum or Plasma 0.3-1.0 [facility] Blood estimated average gluc ose determination by estimation from glycated hemoglobinOrdered By: Edvin Casper on 02-16-2025 Average glucose Estimated from glycated hemoglobin (Bld) [Mass/Vol] Glucose mean value [Mass/volume] in Blood Estimated from glycated hemoglobin [facility] Calcium [Mass/volume] in Ser um or PlasmaOrdered By: Edvin Casper on 02-16-2025 Calcium [Mass/Vol] Calcium [Mass/volume ] in Serum or Plasma Low 8.6-10.3 [facility] Carbon dioxide, total [Moles /volume] in Serum or PlasmaOrdered By: Edvin Casper on 02-16-2025 CO2 [Moles/Vol] Carbon dioxide, tota l [Moles/volume] in Serum or Plasma 21.0-31.0 [facility] Chloride [Moles/volume] in S [place] or PlasmaOrdered By: Edvin Casper on 02-16-2025 Chloride [Moles/Vol] Chloride [Moles/volume] in Serum or Plasma 98-107 [facility] Cholesterol [Mass/volume] in Serum or PlasmaOrdered By: Edvin Casper on 02-16-2025 Cholesterol [Mass/Vol] Cholesterol [Mass/volume] in Serum or Plasma Low 140-200 [facility] Comment on above: Chol less than 200 m g/dl low riskChol 201-239 mg/dl borderline riskChol 240 mg/dl and greater high risk Cholesterol in HDL [Mass/vol ume] in Serum or PlasmaOrdered By: Edvin Casper on 02-16-2025 Cholesterol in HDL [Mass/Vol] Serum or plasma high density lipoprotein (HDL) cholesterol measurement 23-92 [facility] Comment on above: HDL CHOL ATP-III CLA SSIFICATION Cardiovascular RiskHDL > or equal to 60 mg/dL LOWHDL < 40 mg/dL HIGH Cholesterol in LDL Calc [Mas s/Vol]Ordered By: Edvin Casper on 02-16-2025 Cholesterol in LDL [Mass/Vol] Cholesterol in LDL [Mass/volume] in Serum or Plasma by calculation 0-100 [facility] Comment on above: LDL ATP III CLASSIFI CATIONLDL less than 100 mg/dL OptimalLDL 100-129 mg/dL Near or above optimalLDL 130-159 mg/dL Borderline highLDL 160-189 mg/dL HighLDL greater than 189 mg/dL Very high Cholesterol in VLDL Calc [Ma ss/Vol]Ordered By: Edvin Casper on 02-16-2025 Cholesterol in VLDL [Mass/Vol] Cholesterol in VLDL [Mass/volume] in Serum or Plasma by calculation [facility] Complete Blood Count Auto Di ffon 02-16-2025 Basophils (Bld) [#/Vol] 0.1 10*3/uL Normal 0.0-0.2 [facility] Comment on above: Order Comment: pt is getting an ultrasound Result Comment: PERF ORMED BY: [place] [address] PATHOLOGIST CLIENT SERVICE ASSOCIATE SANKET KIRKPATRICK M.D. Performed By: #### C MP, CBC, LIPASE #### [address] Basophils/100 WBC (Bld) 1.3 % Normal . [facility] Comment on above: Order Comment: pt is getting an ultrasound Performed By: #### C MP, CBC, LIPASE #### [address] Eosinophils (Bld) [#/Vol] 0.3 10*3/uL Normal 0.0-0.45 [facility] Comment on above: Order Comment: pt is getting an ultrasound Performed By: #### C MP, CBC, LIPASE #### [address] Eosinophils/100 WBC (Bld) 3.3 % Normal . [facility] Comment on above: Order Comment: pt is getting an ultrasound Performed By: #### C MP, CBC, LIPASE #### [address] Erythrocyte distribution width (RBC) [Ratio] 16.4 % High 11.9-15.3 [facility] Comment on above: Order Comment: pt is getting an ultrasound Performed By: #### C MP, CBC, LIPASE #### [address] Hematocrit (Bld) [Volume fraction] 24.7 % Low 34.0-46.4 [facility] Comment on above: Order Comment: pt is getting an ultrasound Performed By: #### C MP, CBC, LIPASE #### [address] Hemoglobin (Bld) [Mass/Vol] 8.2 g/dL Low 11.8-15.4 [facility] Comment on above: Order Comment: pt is getting an ultrasound Performed By: #### C MP, CBC, LIPASE #### [address] Lymphocytes (Bld) [#/Vol] 2.3 10*3/uL Normal 1.00-4.8 [facility] Comment on above: Order Comment: pt is getting an ultrasound Performed By: #### C MP, CBC, LIPASE #### [address] Lymphocytes/100 WBC (Bld) 25.6 % Normal . [facility] Comment on above: Order Comment: pt is getting an ultrasound Performed By: #### C MP, CBC, LIPASE #### [address] MCH (RBC) [Entitic mass] 28.4 pg Normal 24.7-34.3 [facility] Comment on above: Order Comment: pt is getting an ultrasound Performed By: #### C MP, CBC, LIPASE #### [address] MCV (RBC) [Entitic vol] 85.9 fL Normal 80-100 [facility] Comment on above: Order Comment: pt is getting an ultrasound Performed By: #### C MP, CBC, LIPASE #### [address] Mean Corpuscular HGB Conc 33.0 g/dL Normal 32.0-35.0 [facility] Comment on above: Order Comment: pt is getting an ultrasound Performed By: #### C MP, CBC, LIPASE #### [address] Monocytes (Bld) [#/Vol] 1.1 10*3/uL High 0.0-0.8 [facility] Comment on above: Order Comment: pt is getting an ultrasound Performed By: #### C MP, CBC, LIPASE #### [place] [address] [place] Monocytes/100 WBC (Bld) 12.6 % Normal . [facility] Comment on above: Order Comment: pt is getting an ultrasound Performed By: #### C MP, CBC, LIPASE #### [address] Neutrophils (Bld) [#/Vol] 5.0 10*3/uL Normal 1.8-7.7 [facility] Comment on above: Order Comment: pt is getting an ultrasound Performed By: #### C MP, CBC, LIPASE #### [address] Neutrophils/100 WBC (Bld) 57.2 % Normal . [facility] Comment on above: Order Comment: pt is getting an ultrasound Performed By: #### C MP, CBC, LIPASE #### [address] NRBC% 0.0 /100{WBC} Normal 0-0.5 [facility] Comment on above: Order Comment: pt is getting an ultrasound Performed By: #### C MP, CBC, LIPASE #### [address] Platelet mean volume (Bld) [Entitic vol] 8.9 fL Normal 6.3-10.7 [facility] Comment on above: Order Comment: pt is getting an ultrasound Performed By: #### C MP, CBC, LIPASE #### [place] [address] [place] Platelets (Bld) [#/Vol] 166 10*3/uL Normal 150-450 [facility] Comment on above: Order Comment: pt is getting an ultrasound Performed By: #### C MP, CBC, LIPASE #### [address] RBC (Bld) [#/Vol] 2.87 10*6/uL Low 3.60-5.00 [facility] Comment on above: Order Comment: pt is getting an ultrasound Performed By: #### C MP, CBC, LIPASE #### [address] WBC (Bld) [#/Vol] 8.8 10*3/uL Normal 3.8-11.6 [facility] Comment on above: Order Comment: pt is getting an ultrasound Performed By: #### C MP, CBC, LIPASE #### [address] Comprehensive Metabolic Pane neftali 02-16-2025 Albumin [Mass/Vol] 3.8 g/dL Normal 3.5-5.7 [facility] Comment on above: Order Comment: FASTI NG Y pt is getting an ultrasound Performed By: #### C MP, CBC, LIPASE #### [address] Albumin/Globulin [Mass ratio] 1.8 {ratio} Normal [facility] Comment on above: Order Comment: FASTI NG Y pt is getting an ultrasound Performed By: #### C MP, CBC, LIPASE #### [address] ALP [Catalytic activity/Vol] 64 U/L Normal 34-104 [facility] Comment on above: Order Comment: FASTI NG Y pt is getting an ultrasound Performed By: #### C MP, CBC, LIPASE #### [address] ALT [Catalytic activity/Vol] 15 U/L Normal 7-52 [facility] Comment on above: Order Comment: FASTI NG Y pt is getting an ultrasound Performed By: #### C MP, CBC, LIPASE #### [address] Anion gap [Moles/Vol] 10.7 mmol/L Normal 6.0-15.0 [facility] Comment on above: Order Comment: FASTI NG Y pt is getting an ultrasound Performed By: #### C MP, CBC, LIPASE #### [address] AST [Catalytic activity/Vol] 17 U/L Normal 13-39 [facility] Comment on above: Order Comment: FASTI MELISSA Y pt is getting an ultrasound Performed By: #### C MP, CBC, LIPASE #### [address] Bilirubin [Mass/Vol] 0.3 mg/dL Normal 0.3-1.0 [facility] Comment on above: Order Comment: FASTI NG Y pt is getting an ultrasound Performed By: #### C MP, CBC, LIPASE #### [address] Calcium [Mass/Vol] 8.3 mg/dL Low 8.6-10.3 [facility] Comment on above: Order Comment: FASTI NG Y pt is getting an ultrasound Performed By: #### C MP, CBC, LIPASE #### [address] Chloride [Moles/Vol] 105 mmol/L Normal 98-107 [facility] Comment on above: Order Comment: FASTI NG Y pt is getting an ultrasound Performed By: #### C MP, CBC, LIPASE #### [address] CO2 [Moles/Vol] 26.2 mmol/L Normal 21.0-31.0 [facility] Comment on above: Order Comment: FASTI NG Y pt is getting an ultrasound Performed By: #### C MP, CBC, LIPASE #### [address] Creatinine [Mass/Vol] 1.44 mg/dL High 0.60-1.20 [facility] Comment on above: Order Comment: FASTI NG Y pt is getting an ultrasound Performed By: #### C MP, CBC, LIPASE #### [address] Creatinine Clr Calc Pharmacy 36.01 Normal [facility] Comment on above: Order Comment: FASTI NG Y pt is getting an ultrasound Performed By: #### C MP, CBC, LIPASE #### [address] [address] [place] Estimated GFR 39.128 mL/Min Normal [facility] Comment on above: Order Comment: SHAZIA Anne pt is getting an ultrasound Performed By: #### C MP, CBC, LIPASE #### [address] Globulin (S) [Mass/Vol] 2.1 g/dL Normal [facility] Comment on above: Order Comment: SHAZIA Anne pt is getting an ultrasound Performed By: #### C MP, CBC, LIPASE #### [address] Glucose [Mass/Vol] 142 mg/dL Significant change up 70-100 [facility] Comment on above: Order Comment: SHAZIA Anne pt is getting an ultrasound Result Comment: [place] Glucose Reference Range is dependent on time and content of last meal. Glucose of more than 200 mg/dL in a nonstressed, ambulatory subject supports the diagnosis of Diabetes Mellitus. ADA recommended reference range Performed By: #### C MP, CBC, LIPASE #### [address] Potassium [Moles/Vol] 4.9 mmol/L Normal 3.5-5.1 [facility] Comment on above: Order Comment: SHAZIA Anne pt is getting an ultrasound Performed By: #### C MP, CBC, LIPASE #### [address] Protein [Mass/Vol] 5.9 g/dL Low 6.4-8.9 [facility] Comment on above: Order Comment: SHAZIA Anne pt is getting an ultrasound Performed By: #### C MP, CBC, LIPASE #### [place] [address] [place] Sodium [Moles/Vol] 137 mmol/L Normal 136-145 [facility] Comment on above: Order Comment: SHAZIA Anne pt is getting an ultrasound Performed By: #### C MP, CBC, LIPASE #### [address] Urea nitrogen [Mass/Vol] 48 mg/dL High 7-25 [facility] Comment on above: Order Comment: SHAZIA Anne pt is getting an ultrasound Performed By: #### C MP, CBC, LIPASE #### [facility] [address] Creatinine [Mass/volume] in Serum or PlasmaOrdered By: Edvin Casper on 02-16-2025 Creatinine [Mass/Vol] Creatinine [Mass/volume] in Serum or Plasma High 0.60-1.20 [facility] Eosinophils Auto (Bld) [#/Vo l]Ordered By: Edvinadrian Casper on 02-16-2025 Eosinophils (Bld) [#/Vol] Automated eosinophil count 0.0-0.45 [facility] Eosinophils/100 WBC Auto (Bl d)Ordered By: Edvinadrian Casper on 02-16-2025 Eosinophils/100 WBC (Bld) Automated eosinophil % . [facility] Erythrocyte distribution wid th Auto (RBC) [Ratio]Ordered By: Edvin Casper on 02-16-2025 Erythrocyte distribution width (RBC) [Ratio] Erythrocyte distribution width [Ratio] by Automated count High 11.9-15.3 [facility] Ferritinon 02-16-2025 Ferritin [Mass/Vol] 13.5 ng/mL Normal 11.0-306.8 [facility] Comment on above: Order Comment: SHAZIA Anne pt is getting an ultrasound Performed By: #### C MP, CBC, LIPASE #### [facility] [address] [place] [id number] [facility] Ferritin [Mass/volume] in Se rum or PlasmaOrdered By: Edvin Casper on 02-16-2025 Ferritin [Mass/Vol] Ferritin [Mass/volume] in Serum or Plasma 11.0-306.8 [facility] Folate [Mass/volume] in Seru m or PlasmaOrdered By: Edvin Casper on 02-16-2025 Folate [Mass/Vol] Folate [Mass/volume] in Serum or Plasma >5.9 [facility] Comment on above: Folate reference ran ge: >5.9 ng/mlThe WHO technical consultation on folate and vitamin [id number] has determined that folate concentrations lessthan 4 ng/ml are considered deficient. Globulin Calc (S) [Mass/Vol] Ordered By: Edvin Casper on 02-16-2025 Globulin (S) [Mass/Vol] Serum globulin measurement by calculation (mass/volume) [facility] Glucose Glucometer (BldC) [M ass/Vol]Ordered By: Edvin Casper on 02-16-2025 Glucose [Mass/Vol] Capillary blood glucose measurement by glucometer (mass/volume) [facility] Comment on above: Random Glucose Refer ence Range is dependent on time and content of last meal. Glucose of more than 200 mg/dL in a nonstressed, ambulatory subject supports the diagnosis of Diabetes Mellitus. Glucose Poct Glucometerson 0 02-16-2025 Glucose [Mass/Vol] 254 mg/dL Normal [facility] Comment on above: Result Comment: [place] om Glucose Reference Range is dependent on time and content of last meal. Glucose of more than 200 mg/dL in a nonstressed, ambulatory subject supports the diagnosis of Diabetes Mellitus. PERFORMED BY: [place] [address] PATHOLOGIST CLIENT SERVICE ASSOCIATE SANKET KIRKPATRICK M.D. Performed By: #### C MP, CBC, LIPASE #### [address] Commemt1 Glu2: Cleaned Meter Normal [facility] Comment on above: Result Comment: PERF ORMED BY: [place] [address] PATHOLOGIST CLIENT SERVICE ASSOCIATE SANKET KIRKPATRICK M.D. Performed By: #### C MP, CBC, LIPASE #### [place] [address] [place] Glucose [Mass/Vol] 170 mg/dL Normal [facility] Comment on above: Result Comment: [place] om Glucose Reference Range is dependent on time and content of last meal. Glucose of more than 200 mg/dL in a nonstressed, ambulatory subject supports the diagnosis of Diabetes Mellitus. Performed By: #### C MP, CBC, LIPASE #### [place] [address] [place] Glucose [Mass/volume] in Ser um or PlasmaOrdered By: Edvin Casper on 02-16-2025 Glucose [Mass/Vol] Glucose [Mass/volume ] in Serum or Plasma Invalid Interpretation Code 70-100 [facility] Comment on above: [place]: 371 on -[id number] recommended reference rangeRandom Glucose Reference Range is dependent on time and content of last meal. Glucose of more than 200 mg/dL in a nonstressed, ambulatory subject supports the diagnosis of Diabetes Mellitus. Hematocrit Auto (Bld) [Volum e fraction]Ordered By: Edvin Casper on 02-16-2025 Hematocrit (Bld) [Volume fraction] Hematocrit [Volume Fraction] of Blood by Automated count Low 34.0-46.4 [facility] Hemoglobin A1c/Hemoglobin.to marcial in BloodOrdered By: Edvin Casper on 02-16-2025 HbA1c (Bld) [Mass fraction] Hemoglobin A1c percentage High 4.3-5.6 [facility] Comment on above: Increased risk for d iabetes: 5.7 - 6.4diabetes: >6.4glycemic control for adults with diabetes: <7.0 Hemoglobin [Mass/volume] in BloodOrdered By: Edvin Casper on 02-16-2025 Hemoglobin (Bld) [Mass/Vol] Hemoglobin [Mass/volume] in Blood Low 11.8-15.4 [facility] Iron [Mass/volume] in Serum or PlasmaOrdered By: Edvin Casper on 02-16-2025 Iron [Mass/Vol] Iron [Mass/volume] i n Serum or Plasma Low 50-212 [facility] Iron and TIBC Profileon - % Iron Saturation 10.4 % Low 20-50 [facility] Comment on above: Order Comment: SHAZIA Anne pt is getting an ultrasound Performed By: #### C MP, CBC, LIPASE #### [facility] [address] [place] [id number] [facility] Iron [Mass/Vol] 45 ug/dL Low 50-212 [facility] Comment on above: Order Comment: CHANSoy TORRES Omid pt is getting an ultrasound Performed By: #### C MP, CBC, LIPASE #### [facility] [address] Total Iron Binding Capacity 433 ug/dL Normal 255-450 [facility] Comment on above: Order Comment: SHAZIA Anne pt is getting an ultrasound Performed By: #### C MP, CBC, LIPASE #### [facility] [address] [place] [id number] [facility] Transferrin [Mass/Vol] 309 mg/dL Normal 203-362 [facility] Comment on above: Order Comment: SHAZIA Anne pt is getting an ultrasound Performed By: #### C MP, CBC, LIPASE #### [facility] [address] Leukocytes [#/volume] correc gus for nucleated erythrocytes in Blood by Automated counOrdered By: Edvin Casper on 02-16-2025 WBC corrected for nucl RBC Auto (Bld) [#/Vol] Leukocytes [#/volume] corrected for nucleated erythrocytes in Blood by Automated coun 3.8-11.6 [facility] Lipid Panelon 02-16-2025 Cholesterol [Mass/Vol] 119 mg/dL Low 140-200 [facility] Comment on above: Order Comment: SHAZIA Anne pt is getting an ultrasound Result Comment: Chol less than 200 mg/dl low risk Chol 201-239 mg/dl borderline risk Chol 240 mg/dl and greater high risk Performed By: #### C MP, CBC, LIPASE #### [facility] [address] [place] [id number] [facility] Cholesterol in HDL [Mass/Vol] 28 mg/dL Normal 23-92 [facility] Comment on above: Order Comment: SHAZIA Anne pt is getting an ultrasound Result Comment: HDL CHOL ATP-III CLASSIFICATION Cardiovascular Risk HDL > or equal to 60 mg/dL LOW HDL < 40 mg/dL HIGH Performed By: #### C MP, CBC, LIPASE #### [facility] [address] [place] [id number] [facility] Cholesterol.total/Vera sterol in HDL [Mass ratio] 4.3 {ratio} Normal <5.0 [facility] Comment on above: Order Comment: SHAZIA Anne pt is getting an ultrasound Performed By: #### C MP, CBC, LIPASE #### [facility] [address] LDL Cholesterol,Calculated 26 mg/dL Normal 0-100 [facility] Comment on above: Order Comment: SHAZIA Anne pt is getting an ultrasound Result Comment: LDL ATP III CLASSIFICATION LDL less than 100 mg/dL Optimal LDL 100-129 mg/dL Near or above optimal LDL 130-159 mg/dL Borderline high LDL 160-189 mg/dL High LDL greater than 189 mg/dL Very high Performed By: #### C MP, CBC, LIPASE #### [facility] [address] Triglyceride w/Reflex 327 mg/dL High 0-149 [facility] Comment on above: Order Comment: SHAZIA Anne pt is getting an ultrasound Result Comment: TRIG ATP III CLASSIFICATION TRIG less than 150 mg/dL Normal TRIG 150-199 mg/dL Borderline high TRIG 200-500 mg/dL High TRIG greater than 500 mg/dL Very high Standard traceable to the Center for Disease Conrtrol and Prevention (CDC) test method. Performed By: #### C MP, CBC, LIPASE #### [facility] [address] VLDL CHOLESTEROL 65 mg/dL Normal [facility] Comment on above: Order Comment: SHAZIA Anne pt is getting an ultrasound Performed By: #### C MP, CBC, LIPASE #### [facility] [address] Lymphocytes Auto (Bld) [#/Vo l]Ordered By: Edvin Casper on 02-16-2025 Lymphocytes (Bld) [#/Vol] Lymphocytes [#/volume] in Blood by Automated count 1.00-4.8 [facility] Lymphocytes/100 WBC Auto (Bl d)Ordered By: Edvin Casper on 02-16-2025 Lymphocytes/100 WBC (Bld) Lymphocytes/100 leukocytes in Blood by Automated count . [facility] MCH Auto (RBC) [Entitic mass ]Ordered By: Edvin Casper on 02-16-2025 MCH (RBC) [Entitic mass] MCH [Entitic mass] by Automated count 24.7-34.3 [facility] MCHC Auto (RBC) [Mass/Vol]Or dered By: Edvin Casper on 02-16-2025 MCHC (RBC) [Mass/Vol] MCHC [Mass/volume] by Automated count 32.0-35.0 [facility] MCV Auto (RBC) [Entitic vol] Ordered By: Edvin Casper on 02-16-2025 MCV (RBC) [Entitic vol] MCV [Entitic vol ume] by Automated count 80-100 [facility] Monocytes Auto (Bld) [#/Vol] Ordered By: Edvin Casepr on 02-16-2025 Monocytes (Bld) [#/Vol] Automated blood monocyte count High 0.0-0.8 [facility] Monocytes/100 WBC Auto (Bld) Ordered By: Edvin Casper on 02-16-2025 Monocytes/100 WBC (Bld) Automated monocyte % . [facility] Neutrophils Auto (Bld) [#/Vo l]Ordered By: Edvin Casper on 02-16-2025 Neutrophils (Bld) [#/Vol] Neutrophils [#/volume] in Blood by Automated count 1.8-7.7 [facility] Neutrophils/100 WBC Auto (Bl d)Ordered By: Edvin Casper on 02-16-2025 Neutrophils/100 WBC (Bld) Automated neutrophil % . [facility] No Panel InformationOrdered By: Edvin Casper on 02-16-2025 Bedside Glucose Comment Glu2: cleaned meter [facility] Estimated GFR (CKD-EPI) 39.128 mL/Min [facility] Creatinine Clearance (Chem 36.01 [facility] Nucleated erythrocytes [Pres ence] in Blood by Automated countOrdered By: Edvin Casper on 02-16-2025 Nucleated RBC Auto Ql (Bld) Nucleated erythrocytes [Presence] in Blood by Automated count 0-0.5 [facility] Platelet mean volume Auto (B ld) [Entitic vol]Ordered By: Edvin Casper on 02-16-2025 Platelet mean volume (Bld) [Entitic vol] Platelet mean volume [Entitic volume] in Blood by Automated count 6.3-10.7 [facility] Platelets Auto (Bld) [#/Vol] Ordered By: Edvin Casper on 02-16-2025 Platelets (Bld) [#/Vol] Platelets [#/vol ume] in Blood by Automated count 150-450 [facility] Potassium [Moles/volume] in Serum or PlasmaOrdered By: Edvin Casper on 02-16-2025 Potassium [Moles/Vol] Potassium [Moles/volume] in Serum or Plasma 3.5-5.1 [facility] Protein [Mass/volume] in Ser um or PlasmaOrdered By: Edvin Casper on 02-16-2025 Protein [Mass/Vol] Protein [Mass/volume ] in Serum or Plasma Low 6.4-8.9 [facility] RBC Auto (Bld) [#/Vol]Ordere d By: Edvin Casper on 02-16-2025 RBC (Bld) [#/Vol] Erythrocytes [#/volume] in Blood by Automated count Low 3.60-5.00 [facility] Serum or plasma albumin/glob ulin mass ratioOrdered By: Edvin Casper on 02-16-2025 Albumin/Globulin [Mass ratio] Serum or plasma albumin/globulin mass ratio [facility] Serum or plasma anion gap de terminationOrdered By: Edvin Casper on 02-16-2025 Anion gap [Moles/Vol] Serum or plasma an ion gap determination 6.0-15.0 [facility] Serum or plasma iron binding capacity measurement (mass/volume)Ordered By: Edvin Csaper on 02-16-2025 Iron binding capacity [Mass/Vol] Iron binding capacity [Mass/volume] in Serum or Plasma 255-450 [facility] Serum or plasma iron saturat ion measurement (mass fraction)Ordered By: Edvin Casper on 02-16-2025 Iron saturation [Mass fraction] Iron saturation [Mass Fraction] in Serum or Plasma Low 20-50 [facility] Serum or plasma total choles terol/high density lipoprotein (HDL) cholesterol mass ratOrdered By: Edvin Casper on 02-16-2025 Cholesterol.total/Vera sterol in HDL [Mass ratio] Serum or plasma total cholesterol/high density lipoprotein (HDL) cholesterol mass rat <5.0 [facility] Sodium [Moles/volume] in Ser um or PlasmaOrdered By: Edvin Casper on 02-16-2025 Sodium [Moles/Vol] Sodium [Moles/volume ] in Serum or Plasma 136-145 [facility] Thyroid Stim Hormone w/Rflxo n 02-16-2025 Thyroid Stim Hormone w/Rflx 1.17 u[iU]/mL Normal 0.45-5.33 [facility] Comment on above: Order Comment: SHAZIA TORRES Y pt is getting an ultrasound Result Comment: PERF ORMED BY: [place] [address] PATHOLOGIST CLIENT SERVICE ASSOCIATE SANKET KIRKPATRICK M.D. Performed By: #### C MP, CBC, LIPASE #### [place] [address] [place] Thyrotropin [Units/volume] i n Serum or PlasmaOrdered By: Edvin Casper on 02-16-2025 TSH Qn Thyrotropin [Units/volume] in Serum or Plasma 0.45-5.33 [facility] Transferrin [Mass/volume] in Serum or PlasmaOrdered By: Edvin Doamesofie on 02-16-2025 Transferrin [Mass/Vol] Transferrin [Mass/volume] in Serum or Plasma 203-362 [facility] Triglyceride [Mass/volume] i n Serum or PlasmaOrdered By: Edvintara Caldwellsofie on 02-16-2025 Triglyceride [Mass/Vol] Triglyceride [Mass/volume] in Serum or Plasma High 0-149 [facility] Comment on above: TRIG ATP III CLASSIF ICATIONTRIG less than 150 mg/dL NormalTRIG 150-199 mg/dL Borderline highTRIG 200-500 mg/dL High TRIG greater than 500 mg/dL Very highStandard traceable to the Center for Disease Conrtrol and Prevention (CDC) test method. US aorta (aaa) screeningon 0 02-16-2025 US aorta (aaa) screening [facility] [place] [address] [place] [address] Ultrasound Report Signed Patient: Marimar Patel MR#: [id number] 525 : 1955 Acct:[id number] Age/Sex: 69 / F ADM Date: 02/15/25 Loc: Room: [address] [place] [address] Type: ADM INOo Attending Dr: Edvin Casper MD Ordering Provider: Edvin Casper MD Date of Service: 02/16/25 US/US aorta (aaa) screening: Severe Abdominal and back pain Copies to: Edvin Casper MD Aortic ultrasound Reason for exam: Screening. Back pain Comparison: CT abdomen and pelvis 02/15/2025 Technique: Grayscale, spectral and color Doppler images of the abdominal aorta were obtained. Findings: Visualized portions of the abdominal aorta appears normal in caliber without evidence of aneurysm. Visualized portions of the common iliac arteries also appear normal in caliber. US/US aorta (aaa) screening Impression: No ultrasound evidence of abdominal aortic aneurysm. Impression dictated by: Julio Cesar Erwin Jr., DInduOIndu02/16/2025 8:26 AM Dictation Location: [place] [address] Tech: Ana Maria Valdovinos Transcribed By: JOSUE 02/16/25825 Dictated By: Julio Cesar Erwin Jr, DO 02/16/25824 Signed By: 02/16/25825 Normal [facility] Urea nitrogen [Mass/volume] in Serum or PlasmaOrdered By: Edvin Casper on 02-16-2025 Urea nitrogen [Mass/Vol] Urea nitrogen [Mass/volume] in Serum or Plasma High 7-25 [facility] Vit. B12/Folate Profileon Cobalamin (Vitamin B12) [Mass/Vol] 831 pg/mL Normal 180-914 [facility] Comment on above: Order Comment: FASTI NG Y pt is getting an ultrasound Performed By: #### C MP, CBC, LIPASE #### [facility] [address] Folate 28.0 ng/mL Normal >5.9 [facility] Comment on above: Order Comment: FASTI NG Y pt is getting an ultrasound Result Comment: Kylie te reference range: >5.9 ng/ml The WHO technical consultation on folate and vitamin b12 deficiencies has determined that folate concentrations less than 4 ng/ml are considered deficient. Performed By: #### C MP, CBC, LIPASE #### [facility] [address] Vitamin B12 ser/plasOrdered By: Edvin Casper on 02-16-2025 Cobalamin (Vitamin B12) [Mass/Vol] Vitamin B12 ser/plas 180-914 [facility] WBC Auto (Bld) [#/Vol]Ordere d By: Edvin Casper on 02-16-2025 WBC (Bld) [#/Vol] Leukocytes [#/volume ] in Blood by Automated count 3.8-11.6 [facility] Alanine aminotransferase [En zymatic activity/volume] in Serum or PlasmaOrdered By: Ross Martinez on 02-15-2025 ALT [Catalytic activity/Vol] Alanine aminotransferase [Enzymatic activity/volume] in Serum or Plasma 7-52 [facility] Albumin [Mass/volume] in Ser um or Plasma by Bromocresol green (BCG) dye binding methoOrdered By: Ross Martinez on 02-15-2025 Albumin BCG dye [Mass/Vol] Albumin [Mass/volume] in Serum or Plasma by Bromocresol green (BCG) dye binding metho 3.5-5.7 [facility] Alkaline phosphatase [Enzyma tic activity/volume] in Serum or PlasmaOrdered By: Ross Martinez on 02-15-2025 ALP [Catalytic activity/Vol] Alkaline phosphatase [Enzymatic activity/volume] in Serum or Plasma 34-104 [facility] Appearance of UrineOrdered B y: Ross Martinez on 02-15-2025 Appearance (U) Urine appearance Clear [facility] Aspartate aminotransferase [ Enzymatic activity/volume] in Serum or PlasmaOrdered By: Ross Martinez on 02-15-2025 AST [Catalytic activity/Vol] Aspartate aminotransferase [Enzymatic activity/volume] in Serum or Plasma 13-39 [facility] B-Type Natriuretic Peptideon 02-15-2025 Natriuretic peptide B (Bld) [Mass/Vol] 278.0 pg/mL High 5-100 [facility] Comment on above: Result Comment: PERF ORMED BY: [place] [address] PATHOLOGIST CLIENT SERVICE ASSOCIATE SANKET KIRKPATRICK M.D. Performed By: #### C MP, CBC, LIPASE #### [facility] [address] [place] [address] Basophils Auto (Bld) [#/Vol] Ordered By: Ross Martniez on 02-15-2025 Basophils (Bld) [#/Vol] Automated basoph il count 0.0-0.2 [facility] Basophils/100 WBC Auto (Bld) Ordered By: Ross Martinez on 02-15-2025 Basophils/100 WBC (Bld) Automated basophil % . [facility] Bilirubin Test strip Ql (U)O rdered By: Ross Martinez on 02-15-2025 Bilirubin Ql (U) Bilirubin.total [Presence] in Urine by Test strip Negative [facility] Bilirubin.total [Mass/volume ] in Serum or PlasmaOrdered By: Ross Martinez on 02-15-2025 Bilirubin [Mass/Vol] Bilirubin.total [Mass/volume] in Serum or Plasma 0.3-1.0 [facility] BioFire Not Detectedon 02-15 BioFire Not Detected Not detected Normal Not Detecte [facility] Comment on above: Result Comment: This is a duplicate RP2.1 COVID (PCR) result to be used for statistical tracking purpose only. PERFORMED BY: [place] [address] PATHOLOGIST CLIENT SERVICE ASSOCIATE SANKET KIRKPATRICK M.D. Performed By: #### C MP, CBC, LIPASE #### [facility] [address] [place], [place] [id number] [facility] COVID Cepheid NegativeOrdere d By: Ross Martinez on 02-15-2025 SARS-CoV-2 (COVID-19) Ab IA Ql COVID Cepheid Negative [facility] Comment on above: This is a duplicate Cepheid Xpert Xpress CoV-2/Flu/RSV Plus RNA by RT-PCR result to be used for statistical tracking purpose only. COVID-19 / Flu A/B / RSV PCR on 02-15-2025 SARS-CoV-2 (COVID-19) RNA KOLE+probe Ql (Unsp spec) COVID-19 Cepheid Result Negative for SARS-CoV-2 RNA by RT-PCR Flu A Cepheid Result Negative for Flu A RNA by RT-PCR Flu B Cepheid Result Negative for Flu B RNA by RT-PCR RSV Cepheid Result Negative for RSV RNA by RT-PCR COVID19 Blank Space Reference: Negative COVID19 Blank Space Cepheid Disclaimer The Cepheid Xpert Xpress CoV-2/Flu/RSV Plus has Cepheid Disclaimer not been FDA cleared or approved; this test has Cepheid Disclaimer been authorized by FDA under an EUA for use by Cepheid Disclaimer authorized laboratories; this test has been Cepheid Disclaimer authorized only for the simultaneous qualitative Cepheid Disclaimer detection and differentiation of nucleic acids from Cepheid Disclaimer SARS-CoV-2, influenza A, influenza B, and Cepheid Disclaimer respiratory syncytial virus (RSV), and not for any Cepheid Disclaimer other viruses or pathogens; and this test is only Cepheid Disclaimer authorized for the duration of the declaration that Cepheid Disclaimer circumstances exist justifying the authorization of Cepheid Disclaimer emergency use of in vitro diagnostic tests for Cepheid Disclaimer detection and/or diagnosis of COVID-19 under Cepheid Disclaimer Section 564(b)(1) of the Act, 21 U.S.C. 360bbb- Cepheid Disclaimer 3(b)(1), unless the authorization is terminated or Cepheid Disclaimer revoked sooner. PERFORMED BY: [facility] [place] [address] PATHOLOGIST CLIENT SERVICE ASSOCIATE SANKET KIRKPATRICK M.D. Normal [facility] Comment on above: Performed By: #### C OVID19 FLU RSV, CEPHEID NEG #### [facility] [address] [place] [id number] [facility] COVID-19 Detected/Not Detect edOrdered By: Edvin Casper on 02-15-2025 SARS-CoV-2 (COVID-19) RNA KOLE+non-probe Ql (Nph) Not detected Not Detecte [facility] Comment on above: This is a duplicate RP2.1 COVID (PCR) result to be used for statistical tracking purpose only. CT abdomen pelvis w conon CT abdomen pelvis w con [facility] [place] [address] [place] [id number] Scan Report Signed Patient: Marimar Patel MR#: [id number] 525 : 1955 Acct:[id number] Age/Sex: 69 / F ADM Date: 02/15/25 Loc: Room: [address] [place] [address] Type: ADM INOo Attending Dr: Edvin Casper MD Copies to: MD Ross Higgins APRN Ordering Provider: Ross Martinez APRN Date of Service: 02/15/25 CT/CT abdomen pelvis w con: back pain CT ABDOMEN AND PELVIS WITH CONTRAST COMPARISON: None CLINICAL DATA: Back pain and spasms. Spiral images were obtained through the abdomen and pelvis following 90 mL Isovue-300. This CT exam was performed using one or more following dose reduction techniques: Automated exposure control, adjustment of the mA and/or kV according to patient size, or use of iterative reconstruction technique. Limited cuts through the lung bases show minor atelectasis or scarring. There is a tiny hiatal hernia. There is minimal focal fat within the liver near the fossa of the ligamentum teres. The gallbladder is surgically absent. No common duct stones are noted. The spleen, pancreas and adrenal glands show no acute abnormalities. There are symmetric renal nephrograms, without hydronephrosis. A parapelvic cyst is seen at the midpole on the left measuring approximately 2.4 cm. There is prominent atherosclerotic plaque involving the aorta, iliac and some of the visceral arteries. A few small lymph nodes are visualized. No ascites is seen. There is moderate fluid and food debris within the stomach. No dilated small bowel loops are present. Mild stool is visualized within the ascending and transverse colon. There are postoperative changes suggesting supraumbilical ventral hernia repair. There is lumbar levoscoliotic curvature. No acute compression fractures are visualized. There is degenerative change with disc space narrowing, greatest at L3-4, endplate spurring and mild lower lumbar facet hypertrophy. Images through the pelvis show normal caliber small bowel loops. There is a sigmoid anastomosis. There is mild distal colonic stool. No diverticular disease is noted. There is prior appendectomy and hysterectomy. The urinary bladder is poorly distended and the wall appears thickened. There is no ascites. A tiny umbilical hernia is visualized containing fat. CT/CT abdomen pelvis w con IMPRESSION: NO BOWEL OR URINARY TRACT OBSTRUCTION. LEFT RENAL CYST. PROMINENT ATHEROSCLEROTIC DISEASE. MILD SCOLIOSIS AND DEGENERATIVE CHANGES AT THE SPINE. NO ACUTE FINDINGS. Impression dictated by: Manjula Flannery M.D.02/15/2025 4:03 PM Dictation Location: [place] [address] Transcribed By: [facility] 02/15/25 1603 Dictated By: Manjula Flannery MD 02/15/25 1554 Signed By: 02/15/25 1603 Normal [facility] Calcium [Mass/volume] in Ser um or PlasmaOrdered By: Ross Martinez on 02-15-2025 Calcium [Mass/Vol] Calcium [Mass/volume ] in Serum or Plasma 8.6-10.3 [facility] Carbon dioxide, total [Moles /volume] in Serum or PlasmaOrdered By: Ross Martinez on 02-15-2025 CO2 [Moles/Vol] Carbon dioxide, tota l [Moles/volume] in Serum or Plasma 21.0-31.0 [facility] Cepheid COVID PCR Negativeon 02-15-2025 SARS-CoV-2 (COVID-19) RNA KOLE+probe Ql (Unsp spec) Negative Normal Negative [facility] Comment on above: Result Comment: This is a duplicate CepAppian Xpert Xpress CoV-2/Flu/RSV Plus RNA by RT-PCR result to be used for statistical tracking purpose only. PERFORMED BY: [place] [address] PATHOLOGIST CLIENT SERVICE ASSOCIATE SANKET KIRKPATRICK M.D. Performed By: #### C OVID19 FLU RSV, CEPHEID NEG #### [address] Chloride [Moles/volume] in S bryanna or PlasmaOrdered By: Ross Martinez on 02-15-2025 Chloride [Moles/Vol] Chloride [Moles/volume] in Serum or Plasma 98-107 [facility] Color Auto (U)Ordered By: Nicolás Martinez on 02-15-2025 Color (U) Color of Urine by Auto Yellow [facility] Complete Blood Count Auto Di ffon 02-15-2025 Basophils (Bld) [#/Vol] 0.1 10*3/uL Normal 0.0-0.2 [facility] Comment on above: Result Comment: PERF ORMED BY: [place] [address] PATHOLOGIST CLIENT SERVICE ASSOCIATE SANKET KIRKPATRICK M.D. Performed By: #### C MP, CBC, LIPASE #### [address] Basophils/100 WBC (Bld) 1.0 % Normal . [facility] Comment on above: Performed By: #### C MP, CBC, LIPASE #### [address] Eosinophils (Bld) [#/Vol] 0.4 10*3/uL Normal 0.0-0.45 [facility] Comment on above: Performed By: #### C MP, CBC, LIPASE #### [address] Eosinophils/100 WBC (Bld) 3.4 % Normal . [facility] Comment on above: Performed By: #### C MP, CBC, LIPASE #### [address] Erythrocyte distribution width (RBC) [Ratio] 16.6 % High 11.9-15.3 [facility] Comment on above: Performed By: #### C MP, CBC, LIPASE #### [address] Hematocrit (Bld) [Volume fraction] 26.9 % Low 34.0-46.4 [facility] Comment on above: Performed By: #### C MP, CBC, LIPASE #### [address] Hemoglobin (Bld) [Mass/Vol] 8.8 g/dL Low 11.8-15.4 [facility] Comment on above: Performed By: #### C MP, CBC, LIPASE #### [address] Lymphocytes (Bld) [#/Vol] 2.3 10*3/uL Normal 1.00-4.8 [facility] Comment on above: Performed By: #### C MP, CBC, LIPASE #### [address] Lymphocytes/100 WBC (Bld) 21.3 % Normal . [facility] Comment on above: Performed By: #### C MP, CBC, LIPASE #### [address] MCH (RBC) [Entitic mass] 28.4 pg Normal 24.7-34.3 [facility] Comment on above: Performed By: #### C MP, CBC, LIPASE #### [address] MCV (RBC) [Entitic vol] 86.5 fL Normal 80-100 [facility] Comment on above: Performed By: #### C MP, CBC, LIPASE #### [address] Mean Corpuscular HGB Conc 32.8 g/dL Normal 32.0-35.0 [facility] Comment on above: Performed By: #### C MP, CBC, LIPASE #### [place] [address] [place] Monocytes (Bld) [#/Vol] 1.0 10*3/uL High 0.0-0.8 [facility] Comment on above: Performed By: #### C MP, CBC, LIPASE #### [place] [address] [place] Monocytes/100 WBC (Bld) 18.23 % Normal 0.00-20.00 [facility] Comment on above: Performed By: #### C MP, CBC, LIPASE #### [place] [address] [place] Monocytes/100 WBC (Bld) 9.1 % Normal . [facility] Comment on above: Performed By: #### C MP, CBC, LIPASE #### [address] Neutrophils (Bld) [#/Vol] 6.9 10*3/uL Normal 1.8-7.7 [facility] Comment on above: Performed By: #### C MP, CBC, LIPASE #### [place] [address] [place] Neutrophils/100 WBC (Bld) 65.2 % Normal . [facility] Comment on above: Performed By: #### C MP, CBC, LIPASE #### [address] NRBC% 0.0 /100{WBC} Normal 0-0.5 [facility] Comment on above: Performed By: #### C MP, CBC, LIPASE #### [place] [address] [place] Platelet mean volume (Bld) [Entitic vol] 9.2 fL Normal 6.3-10.7 [facility] Comment on above: Performed By: #### C MP, CBC, LIPASE #### [place] [address] [place] Platelets (Bld) [#/Vol] 184 10*3/uL Normal 150-450 [facility] Comment on above: Performed By: #### C MP, CBC, LIPASE #### [address] RBC (Bld) [#/Vol] 3.11 10*6/uL Low 3.60-5.00 [facility] Comment on above: Performed By: #### C MP, CBC, LIPASE #### [address] WBC (Bld) [#/Vol] 10.6 10*3/uL Normal 3.8-11.6 [facility] Comment on above: Performed By: #### C MP, CBC, LIPASE #### [address] Comprehensive Metabolic Pane neftali 02-15-2025 Albumin [Mass/Vol] 3.9 g/dL Normal 3.5-5.7 [facility] Comment on above: Performed By: #### C MP, CBC, LIPASE #### [address] Albumin/Globulin [Mass ratio] 1.4 {ratio} Normal [facility] Comment on above: Performed By: #### C MP, CBC, LIPASE #### [address] ALP [Catalytic activity/Vol] 73 U/L Normal 34-104 [facility] Comment on above: Performed By: #### C MP, CBC, LIPASE #### [address] ALT [Catalytic activity/Vol] 15 U/L Normal 7-52 [facility] Comment on above: Performed By: #### C MP, CBC, LIPASE #### [address] Anion gap [Moles/Vol] 13.4 mmol/L Normal 6.0-15.0 [facility] Comment on above: Performed By: #### C MP, CBC, LIPASE #### [address] AST [Catalytic activity/Vol] 17 U/L Normal 13-39 [facility] Comment on above: Performed By: #### C MP, CBC, LIPASE #### [address] Bilirubin [Mass/Vol] 0.4 mg/dL Normal 0.3-1.0 [facility] Comment on above: Performed By: #### C MP, CBC, LIPASE #### [address] Calcium [Mass/Vol] 9.4 mg/dL Normal 8.6-10.3 [facility] Comment on above: Performed By: #### C MP, CBC, LIPASE #### [address] Chloride [Moles/Vol] 98 mmol/L Normal 98-107 [facility] Comment on above: Performed By: #### C MP, CBC, LIPASE #### [address] CO2 [Moles/Vol] 25.8 mmol/L Normal 21.0-31.0 [facility] Comment on above: Performed By: #### C MP, CBC, LIPASE #### [address] Creatinine [Mass/Vol] 1.44 mg/dL High 0.60-1.20 [facility] Comment on above: Performed By: #### C MP, CBC, LIPASE #### [address] Creatinine Clr Calc Pharmacy 36.12 Normal [facility] Comment on above: Performed By: #### C MP, CBC, LIPASE #### [address] Estimated GFR 39.128 mL/Min Normal [facility] Comment on above: Performed By: #### C MP, CBC, LIPASE #### [address] Globulin (S) [Mass/Vol] 2.7 g/dL Normal [facility] Comment on above: Performed By: #### C MP, CBC, LIPASE #### [address] Glucose [Mass/Vol] 371 mg/dL High 70-100 [facility] Comment on above: Result Comment: [facility] Glucose Reference Range is dependent on time and content of last meal. Glucose of more than 200 mg/dL in a nonstressed, ambulatory subject supports the diagnosis of Diabetes Mellitus. ADA recommended reference range Performed By: #### C MP, CBC, LIPASE #### [facility] [address] Potassium [Moles/Vol] 5.2 mmol/L High 3.5-5.1 [facility] Comment on above: Performed By: #### C MP, CBC, LIPASE #### [facility] [address] Protein [Mass/Vol] 6.6 g/dL Normal 6.4-8.9 [facility] Comment on above: Performed By: #### C MP, CBC, LIPASE #### [facility] [address] Sodium [Moles/Vol] 132 mmol/L Low 136-145 [facility] Comment on above: Performed By: #### C MP, CBC, LIPASE #### [facility] [address] [place] [address] [place] Urea nitrogen [Mass/Vol] 42 mg/dL High 7-25 [facility] Comment on above: Performed By: #### C MP, CBC, LIPASE #### [facility] [address] [place] [id number] [place] Creatine Kinaseon 02-15-2025 CK [Catalytic activity/Vol] 61 U/L Normal 30-223 [facility] Comment on above: Performed By: #### B MANAGER RESOURCE, CK, HS TROP #### [facility] [address] [place] [id number] [place] Creatine kinase [Enzymatic a ctivity/volume] in Serum or PlasmaOrdered By: Ross Martinez on 02-15-2025 CK [Catalytic activity/Vol] Creatine kinase [Enzymatic activity/volume] in Serum or Plasma 30-223 [facility] Creatinine [Mass/volume] in Serum or PlasmaOrdered By: Ross Martinez on 04-08-2025 Creatinine [Mass/Vol] Creatinine [Mass/volume] in Serum or Plasma High 0.60-1.20 [facility] Eosinophils Auto (Bld) [#/Vo l]Ordered By: Ross Martinez on 02-15-2025 Eosinophils (Bld) [#/Vol] Automated eosinophil count 0.0-0.45 [facility] Eosinophils/100 WBC Auto (Bl d)Ordered By: Ross Martinez on 02-15-2025 Eosinophils/100 WBC (Bld) Automated eosinophil % . [facility] Erythrocyte distribution wid th Auto (RBC) [Ratio]Ordered By: Ross Martinez on 02-15-2025 Erythrocyte distribution width (RBC) [Ratio] Erythrocyte distribution width [Ratio] by Automated count High 11.9-15.3 [facility] Globulin Calc (S) [Mass/Vol] Ordered By: Ross Martinez on 02-15-2025 Globulin (S) [Mass/Vol] Serum globulin measurement by calculation (mass/volume) [facility] Glucose Poct Glucometerson 0 02-15-2025 Commemt1 Glu2: Cleaned Meter Normal [facility] Comment on above: Result Comment: PERF ORMED BY: [place] [address] PATHOLOGIST CLIENT SERVICE ASSOCIATE SAKNET KIRKPATRICK M.D. Performed By: #### C MP, CBC, LIPASE #### [facility] [address] Glucose [Mass/Vol] 377 mg/dL Normal [facility] Comment on above: Result Comment: [place] Glucose Reference Range is dependent on time and content of last meal. Glucose of more than 200 mg/dL in a nonstressed, ambulatory subject supports the diagnosis of Diabetes Mellitus. Performed By: #### C MP, CBC, LIPASE #### [facility] [address] [place] [address] [place] Glucose [Mass/volume] in Ser um or PlasmaOrdered By: Ross Martinez on 02-15-2025 Glucose [Mass/Vol] Glucose [Mass/volume ] in Serum or Plasma High 70-100 [facility] Comment on above: ADA recommended refe rence rangeRandom Glucose Reference Range is dependent on time and content of last meal. Glucose of more than 200 mg/dL in a nonstressed, ambulatory subject supports the diagnosis of Diabetes Mellitus. Glucose [Mass/volume] in Uri ne by Test stripOrdered By: Ross Martinez on 02-15-2025 Glucose Test strip (U) [Mass/Vol] Glucose [Mass/volume] in Urine by Test strip High Normal [facility] Hematocrit Auto (Bld) [Volum e fraction]Ordered By: Ross Martinez on 02-15-2025 Hematocrit (Bld) [Volume fraction] Hematocrit [Volume Fraction] of Blood by Automated count Low 34.0-46.4 [facility] Hemoglobin Test strip Ql (U) Ordered By: Ross Martinez on 02-15-2025 Hemoglobin Ql (U) Hemoglobin [Presence ] in Urine by Test strip Negative [facility] Hemoglobin [Mass/volume] in BloodOrdered By: Ross Martinez on 02-15-2025 Hemoglobin (Bld) [Mass/Vol] Hemoglobin [Mass/volume] in Blood Low 11.8-15.4 [facility] Ketones Test strip Ql (U)Ord ered By: Ross Martinez on 02-15-2025 Ketones Ql (U) Ketones [Presence] i n Urine by Test strip Negative [facility] Leukocyte esterase [Presence ] in Urine by Test stripOrdered By: Ross Martinez on 02-15-2025 Leukocyte esterase Test strip Ql (U) Leukocyte esterase [Presence] in Urine by Test strip Negative [facility] Leukocytes [#/volume] correc gus for nucleated erythrocytes in Blood by Automated counOrdered By: Ross Martinez on 02-15-2025 WBC corrected for nucl RBC Auto (Bld) [#/Vol] Leukocytes [#/volume] corrected for nucleated erythrocytes in Blood by Automated coun 3.8-11.6 [facility] Lipaseon 02-15-2025 Lipase [Catalytic activity/Vol] 41.0 U/L Normal 11.0-82.0 [facility] Comment on above: Result Comment: PERF ORMED BY: [facility] [address] [facility] [facility] [place] [address] PATHOLOGIST CLIENT SERVICE ASSOCIATE MOHAMED M EL-FAKHARANY M.D. Performed By: #### C MP, CBC, LIPASE #### [facility] [address] Lipase [Enzymatic activity/v olume] in Serum or PlasmaOrdered By: Ross Martinez on 02-15-2025 Lipase [Catalytic activity/Vol] Lipase [Enzymatic activity/volume] in Serum or Plasma 11.0-82.0 [facility] Lymphocytes Auto (Bld) [#/Vo l]Ordered By: Ross Martinez on 02-15-2025 Lymphocytes (Bld) [#/Vol] Lymphocytes [#/volume] in Blood by Automated count 1.00-4.8 [facility] Lymphocytes/100 WBC Auto (Bl d)Ordered By: Ross Martinez on 02-15-2025 Lymphocytes/100 WBC (Bld) Lymphocytes/100 leukocytes in Blood by Automated count . [facility] MCH Auto (RBC) [Entitic mass ]Ordered By: Ross Martinez on 02-15-2025 MCH (RBC) [Entitic mass] MCH [Entitic mass] by Automated count 24.7-34.3 [facility] MCHC Auto (RBC) [Mass/Vol]Or dered By: Ross Martinez on 02-15-2025 MCHC (RBC) [Mass/Vol] MCHC [Mass/volume] by Automated count 32.0-35.0 [facility] MCV Auto (RBC) [Entitic vol] Ordered By: Ross Martinez on 02-15-2025 MCV (RBC) [Entitic vol] MCV [Entitic vol ume] by Automated count 80-100 [facility] Monocyte distribution width [Entitic volume] in Blood by AutomatedOrdered By: Ross Martinez on 02-15-2025 Monocyte distribution width Auto (Bld) [Entitic vol] Monocyte distribution width [Entitic volume] in Blood by Automated 0.00-20.00 [facility] Monocytes Auto (Bld) [#/Vol] Ordered By: Ross Martinez on 02-15-2025 Monocytes (Bld) [#/Vol] Automated blood monocyte count High 0.0-0.8 [facility] Monocytes/100 WBC Auto (Bld) Ordered By: Ross Martinez on 02-15-2025 Monocytes/100 WBC (Bld) Automated monocyte % . [facility] Natriuretic peptide B [Mass/ Vol]Ordered By: Ross Martinez on 02-15-2025 Natriuretic peptide B (Bld) [Mass/Vol] BNP ser/plas High 5-100 [facility] Neutrophils Auto (Bld) [#/Vo l]Ordered By: Ross Martinez on 02-15-2025 Neutrophils (Bld) [#/Vol] Neutrophils [#/volume] in Blood by Automated count 1.8-7.7 [facility] Neutrophils/100 WBC Auto (Bl d)Ordered By: Ross Martinez on 02-15-2025 Neutrophils/100 WBC (Bld) Automated neutrophil % . [facility] Nitrite Test strip Ql (U)Ord ered By: Ross Martinez on 02-15-2025 Nitrite Ql (U) Nitrite [Presence] i n Urine by Test strip Negative [facility] No Panel InformationOrdered By: Ross Martinez on 02-15-2025 Estimated GFR (CKD-EPI) 39.128 mL/Min [facility] Creatinine Clearance (Chem 36.12 [facility] Nucleated erythrocytes [Pres ence] in Blood by Automated countOrdered By: Ross Martinez on 02-15-2025 Nucleated RBC Auto Ql (Bld) Nucleated erythrocytes [Presence] in Blood by Automated count 0-0.5 [facility] Ophthalmic OCT panelon 02-15 [facility] Right Eye Images reviewed and comparison made to baseline, Images reviewed. To assess optic nerve function and for use in future follow-up. Reliability: poor. Left Eye Images reviewed and comparison made to baseline, Images reviewed. To assess optic nerve function and for use in future follow-up. Reliability: good and adequate. Notes Good nerve fiber layer (NFL) thickness both eyes (OU). Stable. [facility] Radiology Study observation (narrative) [facility] Optical coherence tomography study reporton 02-15-2025 [facility] Radiology Study observation (narrative) [facility] Platelet mean volume Auto (B ld) [Entitic vol]Ordered By: Ross Martinez on 02-15-2025 Platelet mean volume (Bld) [Entitic vol] Platelet mean volume [Entitic volume] in Blood by Automated count 6.3-10.7 [facility] Platelets Auto (Bld) [#/Vol] Ordered By: Ross Martinez on 02-15-2025 Platelets (Bld) [#/Vol] Platelets [#/vol ume] in Blood by Automated count 150-450 [facility] Potassium [Moles/volume] in Serum or PlasmaOrdered By: Ross Martinez on 02-15-2025 Potassium [Moles/Vol] Potassium [Moles/volume] in Serum or Plasma High 3.5-5.1 [facility] Protein Test strip (U) [Mass /Vol]Ordered By: Ross Martinez on 02-15-2025 Protein (U) [Mass/Vol] Protein [Mass/vol ume] in Urine by Test strip Negative [facility] Protein [Mass/volume] in Ser um or PlasmaOrdered By: Ross Martinez on 02-15-2025 Protein [Mass/Vol] Protein [Mass/volume ] in Serum or Plasma 6.4-8.9 [facility] RBC Auto (Bld) [#/Vol]Ordere d By: Ross Martinez on 02-15-2025 RBC (Bld) [#/Vol] Erythrocytes [#/volume] in Blood by Automated count Low 3.60-5.00 [facility] Respiratory (Upper) Panel, P CRon 02-15-2025 Respiratory (Upper) Panel, PCR Adenovirus Not detected Bordetella parapertussis Not detected Chlamydia pneumoniae Not detected Coronavirus 229E Not detected Coronavirus HKU1 Not detected Coronavirus NL63 Not detected Coronavirus OC43 Not detected Influenza A Not detected Influenza B Not detected Human Metapneumovirus Not detected Mycoplasma pneumoniae Not detected Parainfluenza Virus 1 Not detected Parainfluenza Virus 2 Not detected Parainfluenza Virus 3 Not detected Parainfluenza Virus 4 Not detected Bordetella pertussis-ptxP Not detected Human Rhino/Enterovirus Not detected Resp. Syncytial Virus Not detected COVID-19 Detected/Not Detected Not detected Blank Space FLUA TEST INCLUDES Influenza A tests for the following clinically FLUA TEST INCLUDES significant subtypes: FLUA TEST INCLUDES - Influenza A FLUA TEST INCLUDES - Influenza A H1 FLUA TEST INCLUDES - Influenza A H1 2009 FLUA TEST INCLUDES - Influenza A H3 Blank Space PERFORMED BY: [place] [address] PATHOLOGIST CLIENT SERVICE ASSOCIATE SANKET KIRKPATRICK M.D. Normal [facility] Comment on above: Performed By: #### C MP, CBC, LIPASE #### [address] Respiratory pathogens DNA an d RNA panel - Nasopharynx by KOLE with non-probe detectionOrdered By: Edvin Casper on 02-15-2025 Respiratory pathogens DNA and RNA panel KOLE+non-probe (Nph) Respiratory pathogens DNA and RNA panel - Nasopharynx by KOLE with non-probe detection [facility] Respiratory specimen influen za A virus, influenza B virus, respiratory syncytical virOrdered By: Ross Martinez on 02-15-2025 SARS-CoV-2 (COVID-19) RNA KOLE+probe Ql (Unsp spec) Respiratory specimen influenza A virus, influenza B virus, respiratory syncytical vir [facility] Serum or plasma albumin/glob ulin mass ratioOrdered By: Ross Martinez on 02-15-2025 Albumin/Globulin [Mass ratio] Serum or plasma albumin/globulin mass ratio [facility] Serum or plasma anion gap de terminationOrdered By: Ross Martinez on 02-15-2025 Anion gap [Moles/Vol] Serum or plasma an ion gap determination 6.0-15.0 [facility] Sodium [Moles/volume] in Ser um or PlasmaOrdered By: Ross Martinez on 02-15-2025 Sodium [Moles/Vol] Sodium [Moles/volume ] in Serum or Plasma Low 136-145 [facility] Specific gravity Test strip (U) [Rel density]Ordered By: Ross Martinez on 02-15-2025 Specific gravity (U) [Rel density] Specific gravity of Urine by Test strip High 1.001-1.030 [facility] Troponin I High Sensitivityo n 02-15-2025 Troponin I High Sensitivity 11 Normal 0-15 [facility] Comment on above: Result Comment: The Troponin units of report have been changed to meet the Chest Pain Accreditation requirement, element EC5.M1l2. Troponin units are changed from pg/ml to ng/L. Also, the decimal is removed and results are in whole numbers. PERFORMED BY: [place] [address] PATHOLOGIST CLIENT SERVICE ASSOCIATE SANKET KIRKPATRICK M.D. Performed By: #### C MP, CBC, LIPASE #### [facility] [address] [place] [address] Troponin I.cardiac [Mass/vol ume] in Serum or Plasma by Detection limit <= 0.01 ng/Ordered By: Ross Martinez on 02-15-2025 Troponin I.cardiac DL <= 0.01 ng/mL [Mass/Vol] Troponin I.cardiac [Mass/volume] in Serum or Plasma by Detection limit <= 0.01 ng/ 0-15 [facility] Comment on above: The Troponin units o f report have been changed to meet the Chest Pain Accreditation requirement, element EC5.M1l2. Troponin units are changed from pg/ml to ng/L. Also, the decimal is removed and results are in whole numbers. Urea nitrogen [Mass/volume] in Serum or PlasmaOrdered By: Ross Martinez on 02-15-2025 Urea nitrogen [Mass/Vol] Urea nitrogen [Mass/volume] in Serum or Plasma High 7-25 [facility] Urinalysison 02-15-2025 Appearance (U) Clear Normal Clear [facility] Comment on above: Order Comment: Name Collection Type:: Clean-Voided Midstream Performed By: #### U A #### [facility] [address] [place] [address] Bilirubin,Urine Negative Normal Negative [facility] Comment on above: Order Comment: Name Collection Type:: Clean-Voided Midstream Performed By: #### U A #### [place] [address] [place] Color (U) Yellow Normal Yellow [facility] Comment on above: Order Comment: Name Collection Type:: Clean-Voided Midstream Performed By: #### U A #### [address] Glucose Ql (U) 150 mg/dL High Normal [facility] Comment on above: Order Comment: Name Collection Type:: Clean-Voided Midstream Performed By: #### U A #### [address] Ketones Ql (U) Negative Normal Negative [facility] Comment on above: Order Comment: Name Collection Type:: Clean-Voided Midstream Performed By: #### U A #### [address] Leukocyte esterase Test strip Ql (U) Negative Normal Negative [facility] Comment on above: Order Comment: Name Collection Type:: Clean-Voided Midstream Performed By: #### U A #### [place] [address] [place] Nitrite,Urine Negative Normal Negative [facility] Comment on above: Order Comment: Name Collection Type:: Clean-Voided Midstream Performed By: #### U A #### [address] Occult Blood,Urine Negative Normal Negative [facility] Comment on above: Order Comment: Name Collection Type:: Clean-Voided Midstream Result Comment: PERF ORMED BY: [place] [address] PATHOLOGIST CLIENT SERVICE ASSOCIATE SANKET KIRKPATRICK M.D. Performed By: #### U A #### [place] [address] [place] pH (U) 5.0 [pH] Normal 5.0-9.0 [facility] Comment on above: Order Comment: Name Collection Type:: Clean-Voided Midstream Performed By: #### U A #### [place] [address] Protein,Urine Negative Normal Negative [facility] Comment on above: Order Comment: Name Collection Type:: Clean-Voided Midstream Performed By: #### U A #### [address] Specificy [place],Urine 1.044 High 1.001-1.030 [facility] Comment on above: Order Comment: Name Collection Type:: Clean-Voided Midstream Performed By: #### U A #### [address] Urobilinogen,Urine Normal Normal Normal [facility] Comment on above: Order Comment: Name Collection Type:: Clean-Voided Midstream Performed By: #### U A #### [address] Urobilinogen Test strip (U) [Mass/Vol]Ordered By: Ross Martinez on 02-15-2025 Urobilinogen (U) [Mass/Vol] Urobilinogen [Mass/volume] in Urine by Test strip Normal [facility] WBC Auto (Bld) [#/Vol]Ordere d By: Ross Martinez on 02-15-2025 WBC (Bld) [#/Vol] Leukocytes [#/volume ] in Blood by Automated count 3.8-11.6 [facility] X-ray reportOrdered By: Nino Erwin on 02-15-2025 Study report [facility] [place] [address] [place] [address] XRay Report Signed Patient: Marimar Patel MR#: [id number] : 1955 Acct:[id number] Age/Sex: 69 / F ADM Date: 5 Loc: ER Room: Type: [facility] ER Attending Dr: Copies to: Ross Martinez APRN~ Ordering Provider: Ross Martinez APRN Date of Service: 02/15/25 XR/XR chest 2V*: Back Pain/Injury Chest 2 views CLINICAL HISTORY: Back spasms for one day. COMPARISON: None FINDINGS: Aortic valve replacement. Cardiomegaly. No lung consolidation or pneumothorax. No pleural effusion. No free air. XR/XR chest 2V* IMPRESSION: CARDIOMEGALY WITHOUT ACUTE PROCESS. Impression dictated by: Julio Cesar Erwin Jr., D.O.02/15/2025 3:39 PM Dictation Location: RADIO-PC-22 Transcribed By: JOSUE 02/15/25 1539 Dictated By: Julio Cesar Erwin Jr, DO 02/15/25 1538 Signed By: 02/15/25 1539 [facility] XR chest 2V*on 02-15-2025 XR chest 2V* [facility] [place] [address] [place] [address] XRay Report Signed Patient: Marimar Patel MR#: [id number] : 1955 Acct:[id number] Age/Sex: 69 / F ADM Date: 02/15/25 Loc: ER Room: Type: [facility] ER Attending Dr: Copies to: Ross Martinez APRN Ordering Provider: Ross Martinez APRN Date of Service: 02/15/25 XR/XR chest 2V*: Back Pain/Injury Chest 2 views CLINICAL HISTORY: Back spasms for one day. COMPARISON: None FINDINGS: Aortic valve replacement. Cardiomegaly. No lung consolidation or pneumothorax. No pleural effusion. No free air. XR/XR chest 2V* IMPRESSION: CARDIOMEGALY WITHOUT ACUTE PROCESS. Impression dictated by: Julio Cesar Erwin Jr., D.O.02/15/2025 3:39 PM Dictation Location: RADIO--22 Transcribed By: JOSUE 02/15/25 1539 Dictated By: Julio Cesar Erwin Jr, DO 02/15/25 1538 Signed By: 02/15/25 1539 Normal [facility] pH Test strip (U)Ordered By: Ross Martinez on 02-15-2025 pH (U) pH of Urine by Test strip 5.0-9.0 [facility] HbA1c (Bld) [Mass fraction]o n 12-30-2024 Interpretation and review of laboratory results Abnormal [facility] Healthcare [facility] Laboratory - Hematology and Cell countson 12-30-2024 HbA1c (Bld) [Mass fraction] 9.1 % [facility] Healthcare Office Visiton 12-20-2024 Follow-up visit [id number] Marimar Patel 1955 F Date Provider Department Center 12/20/2024 [facility] Family History Problem Relation Age of Onset Diabetes Mother Cancer Mother Heart disease Father Alcohol abuse Brother Diabetes Brother Family Status - Relation Status Age at Mother Father Brother Level of Service:52622 [place] OFFICE/OUTPATIENT ESTABLISHED MOD MDM 30 MIN Normal [facility] ALL LIPID PROFILE (FASTING)o n 12-18-2024 CHOL HDL RATIO 3.6 [facility] Comment on above: 3.3 - 4.4 LOW RISK 4.4 - 7.1 AVERAGE RISK 7.1 - 11.0 MODERATE RISK >11.0 HIGH RISK Cholesterol [Mass/Vol] 160 mg/dL NINF - 200 mg/dL [facility] Cholesterol in HDL [Mass/Vol] 44 mg/dL 40 - 60 mg/dL [facility] Comment on above: > or =60 mg/dl - LOW CARDIOVASCULAR RISK <40 mg/dl - HIGH CARDIOVASCULAR RISK Magnesium [Mass/Vol] 59 mg/dL [facility] Comment on above: <100 mg/dl OPTIMAL 100-129 mg/dl NEAR OR ABOVE OPTIMAL 130-159 mg/dl BORDERLINE HIGH 160-189 mg/dl HIGH >190 mg/dl VERY HIGH Magnesium [Mass/Vol] 57.4 mg/dL [facility] Triglyceride [Mass/Vol] 287 mg/dL High NINF - 150 mg/dL [facility] CMP (CMP) (FOR REMOTE FH C USE)on 12-18-2024 Albumin [Mass/Vol] 3.5 g/dL 3.4 - 5.0 g/dL [facility] ALBUMIN GLOBULIN RATIO 1.1 NO [facility] ALP [Catalytic activity/Vol] 84 U/L 46 - 116 U/L [facility] ALT [Catalytic activity/Vol] 22 U/L 14 - 59 U/L [facility] Anion gap [Moles/Vol] 11.1 mmol/L NO [facility] AST [Catalytic activity/Vol] 14 U/L Low 15 - 37 U/L [facility] Bilirubin [Mass/Vol] 0.3 mg/dL 0.2 - 1 .0 mg/dL [facility] Calcium [Mass/Vol] 9 mg/dL 8.5 - 10. 1 mg/dL [facility] Chloride [Moles/Vol] 105 mmol/L 98 - 10 7 mmol/L [facility] CO2 [Moles/Vol] 30.9 mmol/L 21.0 - 32.0 mmol/L [facility] Creatinine [Mass/Vol] 1.12 mg/dL High 0.55 - 1.02 mg/dL [facility] GFR/1.73 sq M.predicted CKD-EPI (S/P/Bld) [Vol rate/Area] 58 Low >=60 mL/min/1.73m 2 [facility] Globulin (S) [Mass/Vol] 3.3 g/dL N [facility] Glucose [Mass/Vol] 174 mg/dL High 74 - 106 mg/dL [facility] Potassium [Moles/Vol] 5 mmol/L 3.5 - 5.1 mmol/L [facility] Protein [Mass/Vol] 6.8 g/dL 6.4 - 8.2 g/dL [facility] Sodium [Moles/Vol] 142 mmol/L 136 - 145 mmol/L [facility] TBH EGFR-NON AF SWAZI 48 Low >=60 mL/min/1.73m 2 [facility] Urea nitrogen [Mass/Vol] 19 mg/dL High 7.0 - 18.0 mg/dL [facility] Urea nitrogen/Creatinine [Mass ratio] 17 mg/mg [facility] No Panel Informationon 12-18 Interpretation and review of laboratory results Abnormal [facility] CLINISYNC [facility] Laboratory - Hematology and Cell countson 09-22-2024 HbA1c (Bld) [Mass fraction] 9.5 % [facility] No Panel Informationon 09-22 Interpretation and review of laboratory results Abnormal [facility] Office Visiton 08-18-2024 Follow-up visit [id number] Marimar Patel 1955 F Date Provider Department Center 08/18/2024 Nayeli-CARMELLA ALLEN [facility] Family History Problem Relation Age of Onset Diabetes Mother Cancer Mother Heart disease Father Alcohol abuse Brother Diabetes Brother Family Status - Relation Status Age at Mother Father Brother Level of Service:37615 SC OFFICE/OUTPATIENT ESTABLISHED MOD MDM 30 MIN Reason for Visit and Comments: Coronary Artery Disease [187] Atrial Fibrillation [80] Valve Disorder [3372] Peripheral Vascular Disease [458] Normal [facility] US ANKLE BRACHIAL INDEX (BRIDGER) WITHOUT EXERCISEon 07-20-2024 [facility] US ANKLE BRACHIAL INDEX (BRIDGER) WITHOUT EXERCISE [place] [address] and Vascular Lab Report [facility] ANKLE BRACHIAL INDEX (BRIDGER) WITHOUT EXERCISE Patient Name: MARIMAR AMANDA Reading Physician: [id number] JACOB Reyes MD Study Date: 07/20/2024 Ordering Physician: [id number] JORDAN MRN/PID: [id number] Technologist: Chanda Martinez T Technologist 2: Date of /Age: 8 1955 / 69 years Gender: F Admission Status: Outpatient Location Performed: [facility] Diagnosis/ICD: Peripheral vascular disease, unspecified-I73.9 CPT Codes: 72424 Peripheral artery BRIDGER Only CONCLUSIONS: Right Lower [...] Left Brachial Pressure 175 mmHg 184 mmHg [id number] Nury Blackwell MD, JACOB Final [facility] US Eye+Orbit - bilateralon 0 07-13-2024 Diagnosis: Cataract both eyes (OU) Testing Indication: Performed for preop measurements in the determination of an intraocular lens (IOL) for both eyes (OU) Test Reliability: Good quality both eyes (OU) Interpretation: Good measurements for intraocular lens (IOL) calculation purposes. Calculation made for both eyes (OU). [facility] Radiology Study observation (narrative) [facility] ACT Coag (Bld)on 06-21-2024 Interpretation and review of laboratory results Abnormal [facility] Interpretation and review of laboratory results Abnormal [facility] Interpretation and review of laboratory results Abnormal [facility] Interpretation and review of laboratory results Abnormal [facility] Interpretation and review of laboratory results Abnormal [facility] ACTIVATED CLOTTING TIME LOWo n 06-21-2024 ACT Coag (Bld) 282 s [facility] Comment on above: Target ACT range coty l vary based on the patient population, clinical status, and surgical intervention occurring. ACT Coag (Bld) 234 s [facility] Comment on above: Target ACT range coty l vary based on the patient population, clinical status, and surgical intervention occurring. ACT Coag (Bld) 271 s [facility] Comment on above: Target ACT range coty l vary based on the patient population, clinical status, and surgical intervention occurring. ACT Coag (Bld) 316 s [facility] Comment on above: Target ACT range coty l vary based on the patient population, clinical status, and surgical intervention occurring. ACT Coag (Bld) 334 s [facility] Comment on above: Target ACT range coty l vary based on the patient population, clinical status, and surgical intervention occurring. Activated clotting timeon ACT Coag (Bld) 282 s [facility] 83-199 [facility] Comment on above: Result Comment: Targ et ACT range will vary based on the patient population, clinical status, and surgical intervention occurring. Performed By: #### 3 184-9 #### MOHIT Car ([id number]) [facility] ([facility]) [id number] [place] [address] 24132 ACT Coag (Bld) [address] Comment on above: Result Comment: Targ et ACT range will vary based on the patient population, clinical status, and surgical intervention occurring. Performed By: #### 3 184-9 #### MOHIT Car ([id number]) [facility] ([facility]) [address] [place] [address] 08414 ACT Coag (Bld) [address] Comment on above: Result Comment: Targ et ACT range will vary based on the patient population, clinical status, and surgical intervention occurring. Performed By: #### 3 184-9 #### MOHIT Car ([id number]) [facility] ([facility]) [address] [place] [address] 57579 ACT Coag (Bld) [address] Comment on above: Result Comment: Targ et ACT range will vary based on the patient population, clinical status, and surgical intervention occurring. Performed By: #### 3 184-9 #### MOHIT Car ([id number]) [facility] ([facility]) [address] [place] [address] 90826 ACT Coag (Bld) [address] Comment on above: Result Comment: Targ et ACT range will vary based on the patient population, clinical status, and surgical intervention occurring. Performed By: #### 3 184-9 #### MOHIT Car ([id number]) [facility] ([facility]) [address] [place] [address] 89402 INVASIVE VASCULAR PROCEDUREo n 06-21-2024 INVASIVE VASCULAR PROCEDURE [facility], Web Content Specialist, [address] [place], [place] [id number] Cardiovascular Catheterization Report Patient Name: MARIMAR PATEL Performing Physician: [id number] Curry MD Study Date: 06/21/2024 Verifying Physician: Tatum Curry MD MRN/PID: [id number] [employer] Assistant Teacher/Co-scrub : Ordering Physician: [id number] MARGARETH ESCAMILLA Date of /Age: 8 1955 / 68 years Fellow: [id number] Braeden Colin MD Gender: F Fellow: Study: Peripheral Intervention Procedure Description: After infiltration with 2% Lidocaine utilizing two-dimensional ultrasound and fluoroscopic guidance, the right femoral artery was cannulated with a Micro-Access Kit using a modified Seldinger technique. Subsequently a 5 Icelandic sheath was placed contralateral in the right femoral artery. The arterial sheath was sized up to 6 Icelandic. After completion of the procedure, A 6/7F Vascade Closure System was placed per protocol. Following routine access via the right SKIN CARE SPECIALIST, we crossed up and over into the [...] Posterior Tibial Artery: Entire PT is a PANTOGRAPH II ENGRAVER. Left Peroneal Artery: The left peroneal artery revealed no evidence of significant disease. Left Dorsalis Pedis Artery: Mid distal DP is a PANTOGRAPH II ENGRAVER. Peripheral Interventions: We exchanged the short right SKIN CARE SPECIALIST sheath into a 6F 45 cm Jose sheath. We crossed into the distal PT using Command wire. We performed multiple runs of the entire left SFA [except for the stent segement] and proximal popliteal using M hawk device, followed by ASSOCIATE LOAN OFFICER and DCB. Percutaneous peripheral intervention of the entire left superficial femoral artery and proximal popliteal . The vessel was dilated using a compliant 5.0 mm x 200 mm balloon, followed by a IN.PACT DCB 5.0 mm x 250 mm balloon, and a IN.PACT DCB 5.0 mm x 200 mm balloon. The stenosis was successfully reduced from 95% to <10%. Hemo Personnel: + +--- ------+ Name Duty + +--- ------+ Nely Curry MD, MD 1 + +--- ------+ Hemodynamic Pressures: +----+ -----+ +---- ---------+ ---+---------+ Site Date Time Phase Name Systolic mmHg Diastolic mmHg Mean mmHg +----+ -----+ +---- ---------+ ---+---------+ AO 06/21/2024 2:47:52 PM Rest 121 45 71 +----+ -----+ +---- ---------+ ---+---------+ LFA 06/21/2024 3:02:24 PM Rest 94 46 64 +----+ -----+ +---- ---------+ ---+---------+ Complications: No in-lab complications observed. Cardiac Cath Post Procedure Notes: Post Procedure Diagnosis: See below. Blood Loss: Estimated blood loss during the procedure was 5 mls. Specimens Removed: Number of specimen(s) removed: none. CONCLUSIONS: 1. LLE severe claudication and CLI Otero class V: Patient status post successful revascularization using directional atherectomy_PTA_DCB to entire left SFA and popliteal with good results. 2. Continue home Plavix, resume home Eliquis tomorrow. 3. Follow-up in the clinic in 4 weeks with repeat BRIDGER/TBI. If medial malleolus wound does not heal, then may consider PT intervention. 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 [facility] Invasive vascular procedureo n 06-21-2024 [facility], Web Content Specialist, [address] [place] [address] Cardiovascular Catheterization Report Patient Name: MARIMAR PATEL Performing Physician: [id number] Curry MD Study Date: 06/21/2024 Verifying Physician: Tatum Curry MD MRN/PID: [id number] [employer] Assistant Teacher/Co-scrub : Ordering Physician: [id number] MARGARETH ESCAMILLA Date of /Age: 8 1955 / 68 years Fellow: [id number] Braeden Colin MD Gender: F Fellow: Study: Peripheral Intervention Procedure Description: After infiltration with 2% Lidocaine utilizing two-dimensional ultrasound and fluoroscopic guidance, the right femoral artery was cannulated with a Micro-Access Kit using a modified Seldinger technique. Subsequently a 5 Icelandic sheath was placed contralateral in the right femoral artery. The arterial sheath was sized up to 6 Icelandic. After completion of the procedure, A 6/7F Vascade Closure System was placed per protocol. Following routine access via the right SKIN CARE SPECIALIST, we crossed up and over into the [...] Posterior Tibial Artery: Entire PT is a PANTOGRAPH II ENGRAVER. Left Peroneal Artery: The left peroneal artery revealed no evidence of significant disease. Left Dorsalis Pedis Artery: Mid distal DP is a PANTOGRAPH II ENGRAVER. Peripheral Interventions: We exchanged the short right SKIN CARE SPECIALIST sheath into a 6F 45 cm Jose sheath. We crossed into the distal PT using Command wire. We performed multiple runs of the entire left SFA [except for the stent segement] and proximal popliteal using M hawk device, followed by ASSOCIATE LOAN OFFICER and DCB. Percutaneous peripheral intervention of the entire left superficial femoral artery and proximal popliteal . The vessel was dilated using a compliant 5.0 mm x 200 mm balloon, followed by a IN.PACT DCB 5.0 mm x 250 mm balloon, and a IN.PACT DCB 5.0 mm x 200 mm balloon. The stenosis was successfully reduced from 95% to <10%. Hemo Personnel: + +--- ------+ Name Duty + +--- ------+ Nely Curry MD, MD 1 + +--- ------+ Hemodynamic Pressures: +----+ -----+ +---- ---------+ ---+---------+ Site Date Time Phase Name Systolic mmHg Diastolic mmHg Mean mmHg +----+ -----+ +---- ---------+ ---+---------+ AO 06/21/2024 2:47:52 PM Rest 121 45 71 +----+ -----+ +---- ---------+ ---+---------+ LFA 06/21/2024 3:02:24 PM Rest 94 46 64 +----+ -----+ +---- ---------+ ---+---------+ Complications: No in-lab complications observed. Cardiac Cath Post Procedure Notes: Post Procedure Diagnosis: See below. Blood Loss: Estimated blood loss during the procedure was 5 mls. Specimens Removed: Number of specimen(s) removed: none. CONCLUSIONS: 1. LLE severe claudication and CLI Otero class V: Patient status post successful revascularization using directional atherectomy_PTA_DCB to entire left SFA and popliteal with good results. 2. Continue home Plavix, resume home Eliquis tomorrow. 3. Follow-up in the clinic in 4 wee (more content not included)... Nely Edgar MD - 06/21/2024 [facility], Web Content Specialist, [address] [place] [address] Cardiovascular Catheterization Report Patient Name: MARIMAR PATEL Performing Physician: [id number] Curry MD Study Date: 06/21/2024 Verifying Physician: Tatum Curry MD MRN/PID: [id number] [employer] Assistant Teacher/Co-scrub : Ordering Physician: [id number] MARGARETH ESCAMILLA Date of /Age: 8 1955 / 68 years Fellow: [id number] Braeden Colin MD Gender: F Fellow: Study: Peripheral Intervention Procedure Description: After infiltration with 2% Lidocaine utilizing two-dimensional ultrasound and fluoroscopic guidance, the right femoral artery was cannulated with a Micro-Access Kit using a modified Seldinger technique. Subsequently a 5 Icelandic sheath was placed contralateral in the right femoral artery. The arterial sheath was sized up to 6 Icelandic. After completion of the procedure, A 6/7F Vascade Closure System was placed per protocol. Following routine access via the right SKIN CARE SPECIALIST, we crossed up and over into the [...] Posterior Tibial Artery: Entire PT is a PANTOGRAPH II ENGRAVER. Left Peroneal Artery: The left peroneal artery revealed no evidence of significant disease. Left Dorsalis Pedis Artery: Mid distal DP is a PANTOGRAPH II ENGRAVER. Peripheral Interventions: We exchanged the short right SKIN CARE SPECIALIST sheath into a 6F 45 cm Jose sheath. We crossed into the distal PT using Command wire. We performed multiple runs of the entire left SFA [except for the stent segement] and proximal popliteal using M hawk device, followed by ASSOCIATE LOAN OFFICER and DCB. Percutaneous peripheral intervention of the entire left superficial femoral artery and proximal popliteal . The vessel was dilated using a compliant 5.0 mm x 200 mm balloon, followed by a IN.PACT DCB 5.0 mm x 250 mm balloon, and a IN.PACT DCB 5.0 mm x 200 mm balloon. The stenosis was successfully reduced from 95% to <10%. Hemo Personnel: + +--- ------+ Name Duty + +--- ------+ Nely Curry MD, MD 1 + +--- ------+ Hemodynamic Pressures: +----+ -----+ +---- ---------+ ---+-------- -+ Site Date Time Phase Name Systolic mmHg Diastolic mmHg Mean mmHg +----+ -----+ +---- ---------+ ---+-------- -+ AO 06/21/2024 2:47:52 PM Rest 121 45 71 +----+ -----+ +---- ---------+ ---+-------- -+ LFA 06/21/2024 3:02:24 PM Rest 94 46 64 +----+ -----+ +---- ---------+ ---+-------- -+ Complications: No in-lab complications observed. Cardiac Cath Post Procedure Notes: Post Procedure Diagnosis: See below. Blood Loss: Estimated blood loss during the procedure was 5 mls. Specimens Removed: Number of specimen(s) removed: none. CONCLUSIONS: 1. LLE severe claudication and CLI Anahi class V: Patient status post successful revascularization using directional atherectomy_PTA_DCB to entire left SFA and popliteal with good results. 2. Continue home Plavix, resume home Eliquis tomorrow. 3. Follow-up in the clinic in 4 weeks with repeat BRIDGER/TBI. If medial malleolus wound does not heal, then may consider PT intervention. 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 [facility] Work Phone: [facility] Work Phone: Radiology Study observation (narrative) [facility] Work Phone: CBC panel Auto (Bld)on 06-15 Erythrocyte distribution width (RBC) [Ratio] 14.6 % High 11.5 - 14.5 % [facility] Hematocrit (Bld) [Volume fraction] 35.8 % Low 36.0 - 46.0 % [facility] Hemoglobin (Bld) [Mass/Vol] 11.9 g/dL Low 12.0 - 16.0 g/dL [facility] Interpretation and review of laboratory results Abnormal [facility] MCH (RBC) [Entitic mass] 27.7 pg 26.0 - 34.0 pg [facility] MCHC (RBC) [Mass/Vol] 33.2 g/dL 32.0 - 36.0 g/dL [facility] MCV (RBC) [Entitic vol] 83 fL 80 - 100 fL [facility] Nucleated RBC/100 WBC (Bld) [Ratio] 0.0 % [facility] Platelets (Bld) [#/Vol] 211 10*3/uL [facility] RBC (Bld) [#/Vol] 4.30 10*6/uL [facility] WBC (Bld) [#/Vol] 13.3 10*3/uL High [facility] Erythrocyte distribution width (RBC) [Ratio] 14.6 % High 11.5-14.5 [facility] Comment on above: Performed By: #### 5 8410-2 #### MOHIT Car ([id number]) [facility] ([facility]) [address] [place] [address] 82318 Hematocrit (Bld) [Volume fraction] 35.8 % Low 36.0-46.0 [facility] Comment on above: Performed By: #### 5 8410-2 #### MOHIT Car (32119) [facility] ([facility]) [address] [place] [address] 91382 Hemoglobin (Bld) [Mass/Vol] 11.9 g/dL Low 12.0-16.0 [facility] Comment on above: Performed By: #### 5 8410-2 #### MOHIT Car (32892) [facility] ([facility]) [address] [place] [address] 16632 MCH (RBC) [Entitic mass] 27.7 pg Normal 26.0-34.0 [facility] Comment on above: Performed By: #### 5 8410-2 #### MOHIT Car ([id number]) [facility] ([facility]) [address] [place] [address] 23265 MCHC (RBC) [Mass/Vol] 33.2 g/dL Normal 32.0-36.0 [facility] Comment on above: Performed By: #### 5 8410-2 #### MOHIT Car ([id number]) [facility] ([facility]) [address] [place] [address] 54295 MCV (RBC) [Entitic vol] 83 fL Normal 80-100 U [facility] Comment on above: Performed By: #### 5 8410-2 #### MOHIT Car ([id number]) [facility] ([facility]) [address] [place] [address] 62791 Nucleated RBC/100 WBC (Bld) [Ratio] 0.0 /100 WBCs Normal 0.0-0.0 [facility] Comment on above: Performed By: #### 5 8410-2 #### MOHIT Car (50783) [facility] ([facility]) [address] [place] [address] 24988 Platelets (Bld) [#/Vol] 211 x10*3/uL Normal 150-450 [facility] Comment on above: Performed By: #### 5 8410-2 #### MOHIT Car (78366) [facility] ([facility]) [address] [place] [address] 49211 RBC (Bld) [#/Vol] 4.30 x10*6/uL Normal 4.00-5.20 [facility] Comment on above: Performed By: #### 5 8410-2 #### MOHIT Car ([id number]) [facility] ([facility]) [address] [place] [address] 53272 WBC (Bld) [#/Vol] 13.3 x10*3/uL High 4.4-11.3 [facility] Comment on above: Performed By: #### 5 8410-2 #### MOHIT Car (51129) [facility] ([facility]) [address] [place] [address] 83605 Coagulation tissue factor in ducedon 06-15-2024 PT Coag (PPP) [Time] 12.6 s Normal 9.8-12.8 [facility] Comment on above: Performed By: #### 5 902-2 #### MOHIT Car ([id number]) [facility] ([facility]) [address] [place] [address] 09720 PT Coag (PPP) [Time]on 06-15 INR Coag (PPP) [Relative time] 1.1 {INR} 0.9 - 1.1 [facility] Interpretation and review of laboratory results Normal [facility] INR Coag (PPP) [Relative time] 1.1 Normal 0.9-1.1 [facility] Comment on above: Performed By: #### 5 902-2 #### MOHIT Car ([id number]) [facility] ([facility]) [address] [place] [id number] Protime-INRon 06-15-2024 PT Coag (PPP) [Time] 12.6 s [facility] Renal function 2000 panelon 06-15-2024 Albumin BCP dye [Mass/Vol] 4.7 g/dL 3.4 - 5.0 g/dL [facility] Anion gap [Moles/Vol] 14 mmol/L 10 - 2 0 mmol/L [facility] Calcium [Mass/Vol] 9.8 mg/dL 8.6 - 10. 6 mg/dL [facility] Chloride [Moles/Vol] 104 mmol/L 98 - 10 7 mmol/L [facility] CO2 [Moles/Vol] 25 mmol/L 21 - 32 mmol/L [facility] Creatinine [Mass/Vol] 1.36 mg/dL High 0.50 - 1.05 mg/dL [facility] GFR/1.73 sq M.predicted among non-blacks MDRD (S/P/Bld) [Vol rate/Area] 42 mL/min/{1.73_m2} Low - PINF [facility] Comment on above: Calculations of moises mated GFR are performed using the 2020 CKD-EPI Study Refit equation without the race variable for the IDMS-Traceable creatinine methods. https://jasn.asnjournals.org/content/early/ASN.2020 549653 Glucose [Mass/Vol] 205 mg/dL High 74 - 99 mg/dL [facility] Interpretation and review of laboratory results Abnormal [facility] Phosphate [Mass/Vol] 4.1 mg/dL 2.5 - 4 .9 mg/dL [facility] Comment on above: The performance cornelius acteristics of phosphorus testing in heparinized plasma have been validated by the individual laboratory site where testing is performed. Testing on heparinized plasma is not approved by the FDA; however, such approval is not necessary. Potassium [Moles/Vol] 5.5 mmol/L High 3.5 - 5.3 mmol/L [facility] Sodium [Moles/Vol] 137 mmol/L 136 - 145 mmol/L [facility] Urea nitrogen [Mass/Vol] 53 mg/dL High 6 - 23 mg/dL [facility] Albumin BCP dye [Mass/Vol] 4.7 g/dL Normal 3.4-5.0 [facility] Comment on above: Performed By: #### 2 4362-6 #### MOHIT Car ([id number]) [facility] ([facility]) [address] [place] [address] Anion gap [Moles/Vol] 14 mmol/L Normal 10-20 [facility] Comment on above: Performed By: #### 2 4362-6 #### MOHIT Car ([id number]) [facility] ([facility]) [address] [place] [address] 99892 Calcium [Mass/Vol] 9.8 mg/dL Normal 8.6-10.6 [facility] Comment on above: Performed By: #### 2 4362-6 #### MOHIT Car ([id number]) [facility] ([facility]) [address] [place] [address] 09688 Chloride [Moles/Vol] 104 mmol/L Normal 98-107 [facility] Comment on above: Performed By: #### 2 4362-6 #### MOHIT Car ([id number]) [facility] ([facility]) [address] [place] [address] 46153 CO2 [Moles/Vol] 25 mmol/L Normal 21-32 [facility] Comment on above: Performed By: #### 2 4362-6 #### MOHIT Car ([id number]) [facility] ([facility]) [address] [place] [address] 20080 Creatinine [Mass/Vol] 1.36 mg/dL High 0.50-1.05 [facility] Comment on above: Performed By: #### 2 4362-6 #### MOHIT Car ([id number]) [facility] ([facility]) [address] [place] [address] 20889 Glomerular filtration rate/1.73 sq M.predicted 42 mL/min/1.73m*2 Low >60 [facility] Comment on above: Result Comment: Calc ulations of estimated GFR are performed using the 2020 CKD-EPI Study Refit equation without the race variable for the IDMS-Traceable creatinine methods. https://jasn.asnjournals.org/content/early/ASN.2020 882492 Performed By: #### 2 4362-6 #### MOHIT Car ([id number]) [facility] ([facility]) [address] [place] [address] Glucose [Mass/Vol] 205 mg/dL High 74-99 [facility] Comment on above: Performed By: #### 2 4362-6 #### MOHIT Car ([id number]) [facility] ([facility]) [address] [place] [address] 31342 Phosphate [Mass/Vol] 4.1 mg/dL Normal 2.5-4.9 [facility] Comment on above: Result Comment: The performance characteristics of phosphorus testing in heparinized plasma have been validated by the individual laboratory site where testing is performed. Testing on heparinized plasma is not approved by the FDA; however, such approval is not necessary. Performed By: #### 2 4362-6 #### MOHIT Car ([id number]) [facility] ([facility]) [address] [place] [address] Potassium [Moles/Vol] 5.5 mmol/L High 3.5-5.3 [facility] Comment on above: Performed By: #### 2 4362-6 #### MOHIT Car ([id number]) [facility] ([facility]) [address] [place] [address] Sodium [Moles/Vol] 137 mmol/L Normal 136-145 [facility] Comment on above: Performed By: #### 2 4362-6 #### MOHIT Car ([id number]) [facility] ([facility]) [address] [place] [address] Urea nitrogen [Mass/Vol] 53 mg/dL High 6-23 [facility] Comment on above: Performed By: #### 2 4362-6 #### MOHIT Car ([id number]) [facility] ([facility]) [id number] [place], [place] [id number] VAS US PVR WITH EXERCISEon 06-15-2024 VAS US PVR WITH EXERCISE [facility] [address] [place], [place] [address] and Vascular Lab Report VAS US PVR WITHOUT EXERCISE Patient Name: MARIMAR PATEL Reading Physician: [id number] Christine Beyer MD Study Date: 06/15/2024 Ordering Physician: [id number] MICHEAL NOVA MRN/PID: [id number] Technologist: Miles Costello RVT Technologist 2: Date of /Age: 8 1955 / 68 years Gender: F Admission Status: Outpatient Location Performed: [facility] Diagnosis/ICD: Peripheral vascular disease, unspecified-I73.9 CPT Codes: 93102 Peripheral artery PVR (multi segmental pressure CRITICAL RESULT Critical Result: Severe PAD in left leg. Notification called to MICHEAL SORIA on 06/15/2024 at 10:50:00 AM by Miles [...] Left Brachial Pressure 171 mmHg 163 mmHg [id number] Christine Beyer MD Final [facility] US venous mapping [facility] [place] 05-28-2024 US venous mapping [facility] [place] [address] [place] [address] Ultrasound Report Signed Patient: Marimar Patel MR#: [id number] 525 : 1955 Acct:[id number] Age/Sex: 68 / F ADM Date: 05/27/24 Loc: Room: Type: [facility] Attending Dr: Rodrigo Yousif MD Ordering Provider: Rodrigo Yousif MD Date of Service: 05/27/24 US/US venous mapping [facility]: Z01.818 - Encounter for other preprocedural examination [...] less than 2 mm. US/US venous mapping lower IMPRESSION: Right greater saphenous vein is the best conduit in both lower extremities. Left greater saphenous vein is been partially harvested. Impression dictated by: Rodrigo Yousif M.D.05/28/2024 11:12 AM Dictation Location: [facility] Tech: Flakita Benito Transcribed By: JOSUE 05/28/24 1112 Dictated By: Rodrigo Yousif MD 05/28/24 1110 Signed By: 05/28/24 1112 Normal [facility] US venous mapping [facility] 05-28-2024 US venous mapping [facility] [place] [address] Ultrasound Report Signed Patient: Marimar Patel MR#: [id number] 525 : 1955 Acct:[id number] Age/Sex: 68 / F ADM Date: 05/27/24 Loc: Room: Type: [facility] Attending Dr: Rodrigo Yousif MD Ordering Provider: Rodrigo Yousif MD Date of Service: 05/27/24 US/US venous mapping upper: Z01.818 - Encounter for other preprocedural examination [...] space to the shoulder. US/US venous mapping [facility] IMPRESSION: Limited length of conduit is present. In the patient's right arm the basilic vein is usable in the upper arm. In the left upper extremity the cephalic vein is usable from the antecubital space to the shoulder the basilic vein is potential usable as well in the upper arm. Impression dictated by: Rodrigo Yuosif M.D.05/28/2024 11:13 AM Dictation Location: [place] [address] Tech: Elba Fannie Transcribed By: JOSUE 05/28/24 1113 Dictated By: Rodrigo Yousif MD 05/28/24 1112 Signed By: 05/28/24 1113 Normal [facility] Creatinineon 05-19-2024 Creatinine Clr Calc Pharmacy 51.32 Normal [facility] Comment on above: Result Comment: PERF ORMED BY: [place] [address] PATHOLOGIST CLIENT SERVICE ASSOCIATE FAHAD ASKEW M.D. Performed By: #### B UN, CREAT #### [address] GFR/1.73 sq M.predicted MDRD (S/P/Bld) [Vol rate/Area] mL/min/{1.73_m2} Normal [facility] Comment on above: Performed By: #### B UN, CREAT #### [address] Creatinine [Mass/volume] in Serum or PlasmaOrdered By: Rodrigo Yousif on 05-19-2024 Creatinine [Mass/Vol] 0.98 mg/dL Normal 0.60-1.20 [facility] Comment on above: Performed By: #### B UN, CREAT #### [facility] [address] [place] [address] No Panel InformationOrdered By: Rodrigo Yousif on 05-19-2024 Estimated GFR (CKD-EPI) > 60.0 mL/Min [facility] Creatinine Clearance (Chem 51.32 [facility] Urea nitrogen [Mass/volume] in Serum or PlasmaOrdered By: Rodrigo Yousif on 05-19-2024 Urea nitrogen [Mass/Vol] 40 mg/dL High 06-03 [facility] Comment on above: Performed By: #### B UN, CREAT #### [facility] [address] [place] [address] US arterial pvr rest Terry US arterial pvr rest LE [facility] [place] [address] [place] [address] Ultrasound Report Signed Patient: Marimar Patel MR#: [id number] 525 : 1955 Acct:[id number] Age/Sex: 68 / F ADM Date: 05/17/24 Loc: Room: Type: [facility] Attending Dr: Alexis Gilmore DPM Ordering Provider: [...] Rodrigo Yousif M.D.05/18/2024 10:43 AM Dictation Location: [id number] Tech: Christal Cardoza Transcribed By: JOSUE 05/18/24 1043 Dictated By: Rodrigo Yousif MD 05/18/24 1041 Signed By: 05/18/24 1043 Normal [facility] Office Visiton 05-10-2024 Follow-up visit [id number] Marimar Patel 1955 F Date Provider Department Center 05/10/2024 PANCHITO BALTAZAR Family History Problem Relation Age of Onset Diabetes Mother Cancer Mother Heart disease Father Alcohol abuse Brother Diabetes Brother Family Status - Relation Status Age at Mother Father Brother Level of Service:06265 SC OFFICE/OUTPATIENT ESTABLISHED MOD MDM 30 MIN [facility] 3603-19-2024 36 Lm to return my call Normal [facility] 36on 03-17-2024 36 Pt already taking 40 mg daily sent this to [facility] 36 Regarding echo performed on 03/11/2024: MD Maria Antonia Pisano MA Please tell her the echo showed normal function of the TAVR valve with evidence of extra fluid in the body, I want her to add furosemide 20 mg daily. LM for patient to return my call. Also LM on mobile number. [facility] Office [place] 02-13-2024 Follow-up visit [id number] Marimar Patel 1955 F Date Provider Department [place] 02/13/2024 PANCHITO BALTAZAR Family History Problem Relation Age of Onset Diabetes Mother Cancer Mother Heart disease Father Alcohol abuse Brother Diabetes Brother Family Status - Relation Status Age at Mother Father Brother Level of Service:75556 SC OFFICE/OUTPATIENT ESTABLISHED MOD MDM 30 MIN Reason for Visit and Comments: Follow-up [988120] - 1.5 year follow up Recently in ER [facility] 3601-01-2024 36 Needs appt [facility] CT STROKE HEAD WOon 02-01-[address] STROKE HEAD WO HEAD CT WITHOUT [...] by: CHANTAL KILLIAN Date: 2023-01-31 12:44 Normal [facility] Creatinine and Glomerular fi ltration rate.predicted panel (S/P/Bld)Ordered By: Geo Mathew on 01-13-2023 Creatinine [Mass/Vol] 1.75 mg/dL 0.44-1.03 [facility] Estimated glomerular filtrat ion rate (GFR) non- AmericanOrdered By: Geo Mathew on 01-13-2023 GFR/1.73 sq M.predicted among non-blacks MDRD (S/P/Bld) [Vol rate/Area] 29 mL/Min [facility] No Panel InformationOrdered By: Geo Mathew on 01-13-2023 Estimated GFR () 35 mL/Min [facility] Comment on above: GFR estimated refere nce range: According to KDOQI guidelines, <60 ml/min/1.73m2 is sufficient to diagnose a patient with chronic kidney disease. Pharmacy Creatinine Clearance (Chem 27.91 [facility] Urea nitrogen [Mass/volume] in Serum or PlasmaOrdered By: Geo Mathew on 01-13-2023 Urea nitrogen [Mass/Vol] 48 mg/dL 9-23 [facility] ALBUMINon 08-17-2022 Albumin [Mass/Vol] 3.5 g/dL Normal 3.4-5.0 [facility] Comment on above: Performed By: #### B MP, PREALB, ALB ####[facility] [address] [place], [place] [address]KaDr. Sruthi Arechiga CBC AUTO DIFFon 08-17-2022 BASO # 0.0 103/ul Normal 0.0-0.1 [facility] Comment on above: Performed By: #### C BC #### [facility] [address] [place], [place] [address] Dr. Sruthi Arechiga Basophils/100 WBC (Bld) 0.5 % Normal 0.2-2.0 [facility] Comment on above: Performed By: #### C BC #### [facility] [address] [place] [address] Dr. Sruthi Arechiga EO # 0.3 103/ul Normal 0.0-0.7 [facility] Comment on above: Performed By: #### C BC #### [facility] [address] [place] [address] Dr. Sruthi Arechiga Eosinophils/100 WBC (Bld) 3.6 % Normal 0.9-7.0 [facility] Comment on above: Performed By: #### C BC #### [facility] [address] [place] [address] Dr. Sruthi Arechiga Erythrocyte distribution width (RBC) [Ratio] 14.5 % Normal 11.0-15.0 [facility] Comment on above: Performed By: #### C BC #### [facility] [address] [place] [address] Dr. Sruthi Arechiga Hematocrit (Bld) [Volume fraction] 37.7 % Normal 36.0-48.0 [facility] Comment on above: Performed By: #### C BC #### [facility] [address] [place] [address] Dr. Sruthi Arechiga Hemoglobin (Bld) [Mass/Vol] 11.9 g/dL Critically low 12.0-16.0 [facility] Comment on above: Performed By: #### C BC #### [facility] [address] [place] [address] Dr. Sruthi Arechiga IG # 0.02 10e3/ul Normal 0.00-0.03 [facility] Comment on above: Performed By: #### C BC #### [facility] [address] [place] [address] Dr. Sruthi Arechiga IG % 0.2 % Normal 0.0-0.5 [facility] Comment on above: Performed By: #### C BC #### [facility] [address] [place] [address] Dr. Sruthi Arechiga LYMPH # 2.7 103/ul Normal 1.2-3.8 [facility] Comment on above: Performed By: #### C BC #### [facility] [address] [place] [address] Dr. Sruthi Arechiga Lymphocytes/100 WBC (Bld) 32.2 % Normal 20.5-60.0 [facility] Comment on above: Performed By: #### C BC #### [facility] [address] [place] [address] Dr. Sruthi Arechiga MANUAL DIFF REQ NO Normal [facility] Comment on above: Performed By: #### C BC #### [facility] [address] [place] [address] Dr. Sruthi Arechiga MCH (RBC) [Entitic mass] 26.8 pg Normal 26.7-34.0 [facility] Comment on above: Performed By: #### C BC #### [facility] [address] [place] [address] Dr. Sruthi Arechiga MCHC (RBC) [Mass/Vol] 31.6 g/dL Normal 29.9-35.2 [facility] Comment on above: Performed By: #### C BC #### [facility] [address] [place] [address] Dr. Sruthi Arechiga MCV (RBC) [Entitic vol] 84.9 fL Normal 81.0-99.0 [facility] Comment on above: Performed By: #### C BC #### [facility] [address] [place] [address] Dr. Sruthi Arechiga MONO # 0.8 103/ul Normal 0.3-0.8 [facility] Comment on above: Performed By: #### C BC #### [facility] [address] [place] [address] Dr. Sruthi Arechiga Monocytes/100 WBC (Bld) 9.6 % Normal 1.7-12.0 [facility] Comment on above: Performed By: #### C BC #### [facility] [address] [place] [address] Dr. Sruthi Arechiga NEUT # 4.5 103/ul Normal 1.4-6.5 [facility] Comment on above: Performed By: #### C BC #### [facility] [address] [place] [address] Dr. Sruthi Arechiga Neutrophils/100 WBC (Bld) 53.9 % Normal 43.0-75.0 [facility] Comment on above: Performed By: #### C BC #### [facility] [address] [place] [address] Dr. Sruthi Arechiga Platelet mean volume (Bld) [Entitic vol] 10.8 fL Normal 9.5-13.5 [facility] Comment on above: Performed By: #### C BC #### [facility] [address] [place] [address] Dr. Sruthi Arechiga PLT 246 103/ul Normal 150-450 [facility] Comment on above: Performed By: #### C BC #### [facility] [address] [place] [address] Dr. Sruthi Arechiga RBC 4.44 106/ul Normal 4.20-5.40 [facility] Comment on above: Performed By: #### C BC #### [facility] [address] [place] [address] Dr. Sruthi Arechiga WBC 8.4 103/ul Normal 4.0-11.0 [facility] Comment on above: Performed By: #### C BC #### [facility] [address] [place] [address] Dr. Sruthi Arechiga [facility]on SARS-CoV-2 (COVID-19) RNA KOLE+probe Ql (Unsp spec) Not detected Normal NOT DETECTED [facility] Comment on above: Result Comment: This test is not yet approved or cleared by the [place] FDA. When there are no FDA-approved or cleared tests available, and other criteria are met, FDA can make tests available under an emergency access mechanism called an Emergency Use Authorization (EUA). The EUA for this test is supported by the Pen Tester of Health and Human Service's (HHS's) declaration [...] SARS-CoV-2. Performed By: #### C VDTBH #### [facility] [address] [place] [address] [address] Sruthi Arechiga GLYCOHEMOGLOBIN A1Con 2021 ADA RECOMMENDATION SEE BELOW Normal [facility] Comment on above: Result Comment: ADA RECOMMENDED LIMIT 4.0 - 6.0 ADA THERAPEUTIC TARGET < 7.0 ACTION SUGGESTED > 7.0 Performed By: #### H STROPN #### [facility] [address] [place] [address] [address] Sruthi Arechiga Glucose [Mass/Vol] 255 mg/dL Normal [facility] Comment on above: Performed By: #### H STROPN #### [facility] [address] [place] [address] [address] Sruthi Arechiga HbA1c (Bld) [Mass fraction] 10.5 % Critically high 4.5-6.2 [facility] Comment on above: Performed By: #### H STROPN #### [facility] [address] [place] [address] [address] Sruthi Arechiga MRSA NARES #1on 08-17-2022 MRSA NARES #1 Culture Observations : NO GROWTH OF MRSA AT 48 HOURS. Normal [facility] Comment on above: Performed By: #### M RSAN1 ####[facility] [address] [place] [address]Dr. Sruthi Arechiga PREALBUMINon 08-17-2022 Prealbumin [Mass/Vol] 23.6 mg/dL Normal 20.9-45.5 [facility] Comment on above: Performed By: #### B MP, PREALB, ALB ####[facility] [address] [place] [address]Dr. Sruthi Arechiga PROF CHEM 8 (BAS METB)on Anion gap [Moles/Vol] 11.2 mmol/L Normal [facility] Comment on above: Performed By: #### B MP, PREALB, ALB ####[facility] [address] [place] [address]Dr. Sruthi Arechiga Calcium [Mass/Vol] 9.1 mg/dL Normal 8.5-10.1 [facility] Comment on above: Performed By: #### B MP, PREALB, ALB ####[facility] [address] [place] [address]Dr. Sruthi Arechiga Chloride [Moles/Vol] 105 mmol/L Normal 98-107 [facility] Comment on above: Performed By: #### B MP, PREALB, ALB ####[facility] [address] [place], [place] [address]Dr. Sruthi Arechiga CO2 [Moles/Vol] 26.3 mmol/L Normal 21.0-32.0 [facility] Comment on above: Performed By: #### B MP, PREALB, ALB ####[facility] [address] [place], [place] [address]Dr. Sruthi Arechiga Creatinine [Mass/Vol] 0.72 mg/dL Normal 0.55-1.02 [facility] Comment on above: Performed By: #### B MP, PREALB, ALB ####[facility] [address] [place] [address]Dr. Sruthi Arechiga EGFR-AF SWAZI >60 Normal >=60 [facility] Comment on above: Performed By: #### B MP, PREALB, ALB ####[facility] [address] [place] [address]Dr. Sruthi Arechiga EGFR-NON AF SWAZI >60 Normal >=60 [facility] Comment on above: Performed By: #### B MP, PREALB, ALB ####[facility] [address] [place], [place] [address]Dr. Sruthi Arechiga Glucose [Mass/Vol] 119 mg/dL Critically high 74-106 [facility] Comment on above: Performed By: #### B MP, PREALB, ALB ####[facility] [address] [place] [address]Dr. Srutih Arechiga Potassium [Moles/Vol] 4.5 mmol/L Normal 3.5-5.1 [facility] Comment on above: Performed By: #### B MP, PREALB, ALB ####[facility] [address] [place] [address]Dr. Sruthi Arechiga Sodium [Moles/Vol] 138 mmol/L Normal 136-145 [facility] Comment on above: Performed By: #### B MP, PREALB, ALB ####[facility] [address] [place] [address]Dr. Sruthi Arechiga Urea nitrogen [Mass/Vol] 18.0 mg/dL Normal 7.0-18.0 [facility] Comment on above: Performed By: #### B MP, PREALB, ALB ####[facility] [address] [place] [address]Dr. Sruthi Arechiga Urea nitrogen/Creatinine [Mass ratio] 25.0 mg/mg Normal [facility] Comment on above: Performed By: #### B MP, PREALB, ALB ####[facility] [address] [place] [address]Dr. Sruthi Arechiga [facility] PCR ([facility]on 07-11 SARS-CoV-2 (COVID-19) RNA KOLE+probe Ql (Unsp spec) Not detected Normal NOT DETECTED [facility] Comment on above: Result Comment: When [...] for this test is supported by the Pen Tester of Health and Human Service's declaration that [...] used). Performed By: #### C VDTB #### [facility] [address] [place] [address] [address] Sruthi Arechiga BNPon 07-07-2022 Natriuretic peptide B (Bld) [Mass/Vol] 1389.0 pg/mL Critically high <=900.0 [facility] Comment on above: Performed By: #### B MANAGER RESOURCE, BMP ####[facility] [address] [place] [address]Dr. Sruthi Arechiga CBC AUTO DIFFon 07-07-2022 BASO # 0.0 103/ul Normal 0.0-0.1 [facility] Comment on above: Performed By: #### C BC ####[facility] [address] [place] [address]Dr. Sruthi Arechiga Basophils/100 WBC (Bld) 0.5 % Normal 0.2-2.0 [facility] Comment on above: Performed By: #### C BC ####[facility] [address] [place], [place] [address]Dr. Sruthi Arechiga EO # 0.2 103/ul Normal 0.0-0.7 [facility] Comment on above: Performed By: #### C BC ####[facility] [address] [place] [address]Dr. Sruthi Arechiga Eosinophils/100 WBC (Bld) 2.4 % Normal 0.9-7.0 [facility] Comment on above: Performed By: #### C BC ####[facility] [address] [place], [place] [address]Dr. Sruthi Arechiga Erythrocyte distribution width (RBC) [Ratio] 13.2 % Normal 11.0-15.0 [facility] Comment on above: Performed By: #### C BC ####[facility] [address] [place], [place] [address]Dr. Sruthi Arechiga Hematocrit (Bld) [Volume fraction] 32.4 % Critically low 36.0-48.0 [facility] Comment on above: Performed By: #### C BC ####[facility] [address] [place] [address]DrIndu Arechiga Hemoglobin (Bld) [Mass/Vol] 10.2 g/dL Critically low 12.0-16.0 [facility] Comment on above: Performed By: #### C BC ####[facility] [address] [place], [place] [address]DrIndu Arechiga IG # 0.04 10e3/ul Critically high 0.00-0.03 [facility] Comment on above: Performed By: #### C BC ####[facility] [address] [place], [place] [address]DrIndu Arechiga IG % 0.5 % Normal 0.0-0.5 [facility] Comment on above: Performed By: #### C BC ####[facility] [address] [place], [place] [address]DrIndu Arechiga LYMPH # 2.1 103/ul Normal 1.2-3.8 [facility] Comment on above: Performed By: #### C BC ####[facility] [address] [place], [place] [address]DrIndu Arechiga Lymphocytes/100 WBC (Bld) 23.9 % Normal 20.5-60.0 [facility] Comment on above: Performed By: #### C BC ####[facility] [address] [place], [place] [address]DrIndu Arechiga MANUAL DIFF REQ NO Normal [facility] Comment on above: Performed By: #### C BC ####[facility] [address] [place] [address]DrIndu Arechiga MCH (RBC) [Entitic mass] 26.8 pg Normal 26.7-34.0 [facility] Comment on above: Performed By: #### C BC ####[facility] [address] [place] [address]DrIndu Arechiga MCHC (RBC) [Mass/Vol] 31.5 g/dL Normal 29.9-35.2 [facility] Comment on above: Performed By: #### C BC ####[facility] [address] [place] [address]DrInud Wraysven Hawk MCV (RBC) [Entitic vol] 85.0 fL Normal 81.0-99.0 [facility] Comment on above: Performed By: #### C BC ####[facility] [address] [place] [address]DrIndu Arechiga MONO # 1.1 103/ul Critically high 0.3-0.8 [facility] Comment on above: Performed By: #### C BC ####[facility] [address] [place] [address]DrIndu Arechiga Monocytes/100 WBC (Bld) 13.1 % Critically high 1.7-12. 0 [facility] Comment on above: Performed By: #### C BC ####[facility] [address] [place], [place] [address]DrIndu Arechiga NEUT # 5.2 103/ul Normal 1.4-6.5 [facility] Comment on above: Performed By: #### C BC ####[facility] [address] [place], [place] [address]DrIndu Arechiga Neutrophils/100 WBC (Bld) 59.6 % Normal 43.0-75.0 [facility] Comment on above: Performed By: #### C BC ####[facility] [address] [place], [place] [address]DrIndu Arechiga Platelet mean volume (Bld) [Entitic vol] 12.6 fL Normal 9.5-13.5 [facility] Comment on above: Performed By: #### C BC ####[facility] [address] [place], [place] [address]DrIndu Arechiga PLT 146 103/ul Critically low 150-450 [facility] Comment on above: Performed By: #### C BC ####[facility] [address] [place], [place] [address]DrIndu Arechiga RBC 3.81 106/ul Critically low 4.20-5.40 [facility] Comment on above: Performed By: #### C BC ####[facility] [address] [place] [address]Dr. Sruthi Arechiga WBC 8.7 103/ul Normal 4.0-11.0 [facility] Comment on above: Performed By: #### C BC ####[facility] [address] [place], [place] [address]Dr. Sruthi Arechiga PROF CHEM 8 (BAS METB)on Anion gap [Moles/Vol] 12.0 mmol/L Normal [facility] Comment on above: Performed By: #### B MANAGER RESOURCE, BMP ####[facility] [address] [place], [place] [address]Dr. Sruthi Arechiga Calcium [Mass/Vol] 9.0 mg/dL Normal 8.5-10.1 [facility] Comment on above: Performed By: #### B MANAGER RESOURCE, BMP ####[facility] [address] [place], [place] [address]Dr. Sruthi Arechiga Chloride [Moles/Vol] 99 mmol/L Normal 98-107 [facility] Comment on above: Performed By: #### B MANAGER RESOURCE, BMP ####[facility] [address] [place], [place] [address]Dr. Sruthi Arechiga CO2 [Moles/Vol] 29.4 mmol/L Normal 21.0-32.0 [facility] Comment on above: Performed By: #### B MANAGER RESOURCE, BMP ####[facility] Yucucrwire[address] [place], [place] [address]Dr. Sruthi Arechiga Creatinine [Mass/Vol] 0.86 mg/dL Normal 0.55-1.02 [facility] Comment on above: Performed By: #### B MANAGER RESOURCE, BMP ####[facility] Piwogepjew[address] [place], [place] [address]Dr. Sruthi Arechiga EGFR-AF SWAZI >60 Normal >=60 [facility] Comment on above: Performed By: #### B MANAGER RESOURCE, BMP ####[facility] Fzoalkgjjs[address] [place], [place] [address]Dr. Sruthi Arechiga EGFR-NON AF SWAZI >60 Normal >=60 [facility] Comment on above: Performed By: #### B MANAGER RESOURCE, BMP ####[facility] [address] [place] [address]Dr. Sruthi Arechiga Glucose [Mass/Vol] 185 mg/dL Critically high 74-106 [facility] Comment on above: Performed By: #### B MANAGER RESOURCE, BMP ####[facility] [address]qu[address] [place] [address]Dr. Sruthi Arechiga Potassium [Moles/Vol] 4.4 mmol/L Normal 3.5-5.1 [facility] Comment on above: Performed By: #### B MANAGER RESOURCE, BMP ####[facility] [address]lt[address] [place], [place] [address]Dr. Sruthi Arechiga Sodium [Moles/Vol] 136 mmol/L Normal 136-145 [facility] Comment on above: Performed By: #### B MANAGER RESOURCE, BMP ####[facility] Krdaocjpor[address] [place], [place] [address]Dr. Sruthi Arechiga Urea nitrogen [Mass/Vol] 27.0 mg/dL Critically high 7.0-18.0 [facility] Comment on above: Performed By: #### B MANAGER RESOURCE, BMP ####[facility] [address] [place], [place] [address]Dr. Sruthi Arechiga Urea nitrogen/Creatinine [Mass ratio] 31.4 mg/mg Normal [facility] Comment on above: Performed By: #### B MANAGER RESOURCE, BMP ####[facility] [address] [place], [place] [address]Dr. Surthi Arechiga CBC AUTO DIFFon 07-06-2022 BASO # 0.0 103/ul Normal 0.0-0.1 [facility] Comment on above: Performed By: #### C VDTBH #### [facility] [address] [address] [address] Sruthi Arechiga Basophils/100 WBC (Bld) 0.4 % Normal 0.2-2.0 [facility] Comment on above: Performed By: #### C VDTBH #### [facility] [address] [place] [address] Dr. Sruthi Arechiga EO # 0.2 103/ul Normal 0.0-0.7 [facility] Comment on above: Performed By: #### C VDTBH #### [facility] [address] [place] [address] Dr. Sruthi Arechiga Eosinophils/100 WBC (Bld) 2.4 % Normal 0.9-7.0 [facility] Comment on above: Performed By: #### C VDTBH #### [facility] [address] [place] [address] Dr. Sruthi Arechiga Erythrocyte distribution width (RBC) [Ratio] 13.3 % Normal 11.0-15.0 [facility] Comment on above: Performed By: #### C VDTBH #### [facility] [address] [place] [address] Dr. Sruthi Arechiga Hematocrit (Bld) [Volume fraction] 32.0 % Critically low 36.0-48.0 [facility] Comment on above: Performed By: #### C VDTBH #### [facility] [address] [place] [address] Dr. Sruthi Arechiga Hemoglobin (Bld) [Mass/Vol] 10.0 g/dL Critically low 12.0-16.0 [facility] Comment on above: Performed By: #### C VDTBH #### [facility] [address] [place] [address] Dr. Sruthi Arechiga IG # 0.05 10e3/ul Critically high 0.00-0.03 [facility] Comment on above: Performed By: #### C VDTBH #### [facility] [address] [place] [address] Dr. Sruthi Arechiga IG % 0.5 % Normal 0.0-0.5 [facility] Comment on above: Performed By: #### C VDTBH #### [facility] [address] [place] [address] Dr. Sruthi Arechiga LYMPH # 2.4 103/ul Normal 1.2-3.8 [facility] Comment on above: Performed By: #### C VDTBH #### [facility] [address] [place] [address] Dr. Sruthi Arechiga Lymphocytes/100 WBC (Bld) 24.5 % Normal 20.5-60.0 [facility] Comment on above: Performed By: #### C VDTBH #### [facility] [address] [place] [address] Dr. Sruthi Arechiga MANUAL DIFF REQ NO Normal [facility] Comment on above: Performed By: #### C VDTBH #### [facility] [address] [place] [address] Dr. Sruthi Arechiga MCH (RBC) [Entitic mass] 26.5 pg Critically low 26.7-34.0 [facility] Comment on above: Performed By: #### C VDTBH #### [facility] [address] [place] [address] Dr. Sruthi Arechiga MCHC (RBC) [Mass/Vol] 31.3 g/dL Normal 29.9-35.2 [facility] Comment on above: Performed By: #### C VDTBH #### [facility] [address] [place] [address] Dr. Sruthi Arechiga MCV (RBC) [Entitic vol] 84.9 fL Normal 81.0-99.0 [facility] Comment on above: Performed By: #### C VDTBH #### [facility] [address] [place] [address] Dr. Sruthi Arechiga MONO # 1.1 103/ul Critically high 0.3-0.8 [facility] Comment on above: Performed By: #### C VDTBH #### [facility] [address] [place] [address] Dr. Sruthi Arechiga Monocytes/100 WBC (Bld) 11.7 % Normal 1.7-12.0 [facility] Comment on above: Performed By: #### C VDTBH #### [facility] [address] [place] [address] Dr. Sruthi Arechiga NEUT # 5.8 103/ul Normal 1.4-6.5 [facility] Comment on above: Performed By: #### C VDTBH #### [facility] [address] [address] [address] Sruthi Arechiga Neutrophils/100 WBC (Bld) 60.5 % Normal 43.0-75.0 [facility] Comment on above: Performed By: #### C VDTBH #### [facility] [address] [address] [address] Sruthi Arechiga Platelet mean volume (Bld) [Entitic vol] 11.8 fL Normal 9.5-13.5 [facility] Comment on above: Performed By: #### C VDTBH #### [facility] [address] [place] [address] Dr. Sruthi Arechiga PLT 198 103/ul Normal 150-450 [facility] Comment on above: Performed By: #### C VDTBH #### [facility] [address] [place] [address] Dr. Sruthi Arechiga RBC 3.77 106/ul Critically low 4.20-5.40 [facility] Comment on above: Performed By: #### C VDTBH #### [facility] [address] [address] [address] Sruthi Arechiga WBC 9.7 103/ul Normal 4.0-11.0 [facility] Comment on above: Performed By: #### C VDTBH #### [facility] [address] [place] [address] Dr. Sruthi Arechiga CULTURE URINEon 07-06-2022 CULTURE URINE Isolate 1 Klebsiella pneumoniae >100,000 cfu/mL of ORGANISM 1 Klebsiella pneumoniae ANTIBIOTIC M.I.C RX STATUS Ampicillin 16 R F Ampicillin/Sulbactam 4 S F Piperacillin/Tazobact am <=4 S F Cefazolin <=4 S F Ceftazidime <=1 S F Ceftriaxone <=1 S F Ertapenem <=0.5 S F Imipenem <=0.25 S F Amikacin <=2 S F Gentamicin <=1 S F Tobramycin <=1 S F Ciprofloxacin <=0.25 S F Levofloxacin <=0.12 S F Nitrofurantoin <=16 S F Trimethoprim/Sulfamet hoxazole <=20 S F Normal [facility] Comment on above: Performed By: #### U RCX ####[facility] [address] [place] [address]Dr. Sruthi Arechiga IRON AND TIBCon 07-06-2022 % SATURATION 9.3 % Normal [facility] Comment on above: Performed By: #### F ETIBC, B12FOL ####[facility] [address] [address]Dr. Sruthi Arechiga Iron [Mass/Vol] 33.0 ug/dL Critically low 50.0-170.0 [facility] Comment on above: Performed By: #### F ETIBC, B12FOL ####[facility] [address] [address]Dr. Kamalasven Hawk TIBC DIRECT 356.0 ug/dL Normal 250.0-450.0 [facility] Comment on above: Performed By: #### F ETIBC, B12FOL ####[facility] [address] [address]Dr. Sruthi Arechiga OCC BLD IMMUNO SCREENon 06-11 OCCULT BLOOD Negative Normal NEGATIVE [facility] Comment on above: Performed By: #### O BSCRN #### [facility] [address] [address] [address] Sruthi Arechiga POINT OF CARE GLUCOSEon 06-11 Glucose [Mass/Vol] 203 mg/dL Critically high -[address] [place] [address] Comment on above: Performed By: #### C BC #### [facility] [address] [address] [address] Sruthi Arechiga Glucose [Mass/Vol] 299 mg/dL Critically high [facility]106 [facility] Comment on above: Performed By: #### C VDTBH #### [facility] [address] [address] [address] Sruthi Arechiga Glucose [Mass/Vol] 412 mg/dL Critically high -106 [facility] Comment on above: Performed By: #### C BC #### [facility] [address] [place], [place] [address] Dr. Sruthi Arechiga PROF CHEM 8 (BAS METB)on Anion gap [Moles/Vol] 11.0 mmol/L Normal [facility] Comment on above: Performed By: #### B MP ####[facility] [address] [place] [id number]. Sruthi Arechiga Calcium [Mass/Vol] 9.0 mg/dL Normal 8.5-10.1 [facility] Comment on above: Performed By: #### B MP ####[facility] [address] [place] [address]Dr. Sruthi Arechiga Chloride [Moles/Vol] 100 mmol/L Normal 98-107 [facility] Comment on above: Performed By: #### B MP ####[facility] [address] [place] [address]Dr. Sruthi Arechiga CO2 [Moles/Vol] 28.5 mmol/L Normal 21.0-32.0 [facility] Comment on above: Performed By: #### B MP ####[facility] [address]rou[address] [place] [address]Dr. Sruthi Arechiga Creatinine [Mass/Vol] 0.98 mg/dL Normal 0.55-1.02 [facility] Comment on above: Performed By: #### B MP ####[facility] [address] [place] [address]Dr. Sruthi Arechiga EGFR-AF SWAZI >60 Normal >=60 [facility] Comment on above: Performed By: #### B MP ####[facility] [address] [id number]. Sruthi Arechiga EGFR-NON AF SWAZI 56 mL/min/1.73m2 Critically low >=60 [facility] Comment on above: Performed By: #### B MP ####[facility] [address] [id number]. Sruthi Arechiga Glucose [Mass/Vol] 139 mg/dL Critically high 74-106 [facility] Comment on above: Performed By: #### B MP ####[facility] [address] [place] [phone]. Sruthi Arechiga Potassium [Moles/Vol] 4.5 mmol/L Normal 3.5-5.1 [facility] Comment on above: Performed By: #### B MP ####[facility] [address] [place] [address]Dr. Sruthi Arechiga Sodium [Moles/Vol] 135 mmol/L Critically low 136-145 [facility] Comment on above: Performed By: #### B MP ####[facility] Veriywfes[address] [place], [place] [address]Dr. Sruthi Arechiga Urea nitrogen [Mass/Vol] 25.0 mg/dL Critically high 7.0-18.0 [facility] Comment on above: Performed By: #### B MP ####[facility] [address] [place], [place] [address]Dr. Sruthi Arechiga Urea nitrogen/Creatinine [Mass ratio] 25.5 mg/mg Normal [facility] Comment on above: Performed By: #### B MP ####[facility] H[address] [place], [place] [address]Dr. Sruthi Arechiga VIT B12 AND FOLATEon 022 Cobalamin (Vitamin B12) [Mass/Vol] 653.0 pg/mL Normal 193.0-986.0 [facility] Comment on above: Performed By: #### F ETIBC, B12FOL ####[facility] [address]vr[address] [place], [place] [address]Dr. Sruthi Arechiga FOLATE 17.90 ng/mL Normal 8.60-58.90 [facility] Comment on above: Performed By: #### F ETIBC, B12FOL ####[facility] U[address] [place], [place] [address]Dr. Sruthi Arechiga XR CHEST 2 Von 07-06-2022 [...] by: GORDON VALENZUELA Date: 2022-07-06 08:43 Normal [facility] CBC AUTO DIFFon 07-05-2022 BASO # 0.0 103/ul Normal 0.0-0.1 [facility] Comment on above: Performed By: #### C BC ####[facility] [address] [place] [address]Dr. Sruthi Arechiga Basophils/100 WBC (Bld) 0.4 % Normal 0.2-2.0 [facility] Comment on above: Performed By: #### C BC ####[facility] [address] [place], [place] [address]Dr. Sruthi Arechiga EO # 0.2 103/ul Normal 0.0-0.7 [facility] Comment on above: Performed By: #### C BC ####[facility] [address] [place], [place] [address]Dr. Sruthi Arechiga Eosinophils/100 WBC (Bld) 2.6 % Normal 0.9-7.0 [facility] Comment on above: Performed By: #### C BC ####[facility] [address]nsi[address] [place], [place] [address]Dr. Sruthi Arechiga Erythrocyte distribution width (RBC) [Ratio] 13.3 % Normal 11.0-15.0 [facility] Comment on above: Performed By: #### C BC ####[facility] [address] [place], [place] [address]Dr. Sruthi Arechiga Hematocrit (Bld) [Volume fraction] 31.3 % Critically low 36.0-48.0 [facility] Comment on above: Performed By: #### C BC ####[facility] [address] [place], [place] [address]Dr. Sruthi Arechiga Hemoglobin (Bld) [Mass/Vol] 9.9 g/dL Critically low 12.0-16.0 [facility] Comment on above: Performed By: #### C BC ####[facility] [address] [id number]. Sruthi Arechiga IG # 0.07 10e3/ul Critically high 0.00-0.03 [facility] Comment on above: Performed By: #### C BC ####[facility] [address] [place] [id number]. Sruthi Arechiga IG % 0.8 % Critically high 0.0-0.5 [facility] Comment on above: Performed By: #### C BC ####[facility] [address] [place] [address]Dr. Sruthi Arechiga LYMPH # 2.1 103/ul Normal 1.2-3.8 [facility] Comment on above: Performed By: #### C BC ####[facility] [address]fil[address] [place] [address]Dr. Sruthi Arechiga Lymphocytes/100 WBC (Bld) 22.5 % Normal 20.5-60.0 [facility] Comment on above: Performed By: #### C BC ####[facility] [address] [place] [address]Dr. Sruthi Arechiga MANUAL DIFF REQ NO Normal [facility] Comment on above: Performed By: #### C BC ####[facility] [address] [phone]. Sruthi Arechiga MCH (RBC) [Entitic mass] 27.0 pg Normal 26.7-34.0 [facility] Comment on above: Performed By: #### C BC ####[facility] [address] [phone]. Sruthi Arechiga MCHC (RBC) [Mass/Vol] 31.6 g/dL Normal 29.9-35.2 [facility] Comment on above: Performed By: #### C BC ####[facility] [address] [place] [phone]. Sruthi Arechiga MCV (RBC) [Entitic vol] 85.3 fL Normal 81.0-99.0 [facility] Comment on above: Performed By: #### C BC ####[facility] [address]aj[address] [place] [phone]. Sruthi Arechiga MONO # 1.2 103/ul Critically high 0.3-0.8 [facility] Comment on above: Performed By: #### C BC ####[facility] [address] [phone]. Sruthi Arechiga Monocytes/100 WBC (Bld) 12.9 % Critically high 1.7-12. 0 [facility] Comment on above: Performed By: #### C BC ####[facility] [address]te[address] [place] [address]Dr. Sruthi Arechiga NEUT # 5.7 103/ul Normal 1.4-6.5 [facility] Comment on above: Performed By: #### C BC ####[facility] [address] [place] [address]Dr. Sruthi Arechiga Neutrophils/100 WBC (Bld) 60.8 % Normal 43.0-75.0 [facility] Comment on above: Performed By: #### C BC ####[facility] [address]yean[address] [place] [address]Dr. Sruthi Arechiga Platelet mean volume (Bld) [Entitic vol] 11.2 fL Normal 9.5-13.5 [facility] Comment on above: Performed By: #### C BC ####[facility] [address] [phone]. Sruthi Arechiga PLT 213 103/ul Normal 150-450 [facility] Comment on above: Performed By: #### C BC ####[facility] [address]occ[address] [phone]. Sruthi Arechiga RBC 3.67 106/ul Critically low 4.20-5.40 [facility] Comment on above: Performed By: #### C BC ####[facility] [address]qorb[address] [place] [phone]. Sruthi Arechiga WBC 9.3 103/ul Normal 4.0-11.0 [facility] Comment on above: Performed By: #### C BC ####[facility] [address] [phone]. Sruthi Arechiga POINT OF CARE GLUCOSEon 06-11 Glucose [Mass/Vol] 164 mg/dL Critically high -106 [facility] Comment on above: Performed By: #### C VDTBH #### [facility] [address] [address] [address] Sruthi Arechiga Glucose [Mass/Vol] 303 mg/dL Critically high -106 [facility] Comment on above: Performed By: #### P OCGLUC #### [facility] [address] [address] [address] Sruthi Arechiga Glucose [Mass/Vol] 278 mg/dL Critically high [address] [place] [address] Comment on above: Performed By: #### C VDTBH #### [facility] [address] [address] [address] Sruthi Arechiga PROF CHEM 8 (BAS METB)on Anion gap [Moles/Vol] 9.9 mmol/L Normal [facility] Comment on above: Performed By: #### B MP ####[facility] [address] [place] [address]DrIndu Arechiga Calcium [Mass/Vol] 8.7 mg/dL Normal 8.5-10.1 [facility] Comment on above: Performed By: #### B MP ####[facility] [address] [place] [address]DrIndu Arechiga Chloride [Moles/Vol] 100 mmol/L Normal 98-107 [facility] Comment on above: Performed By: #### B MP ####[facility] [address]ux[address] [phone] Arechiga CO2 [Moles/Vol] 28.4 mmol/L Normal 21.0-32.0 [facility] Comment on above: Performed By: #### B MP ####[facility] Tbjj[address]logmc[address] [place] [address]DrIndu Arechiga Creatinine [Mass/Vol] 0.99 mg/dL Normal 0.55-1.02 [facility] Comment on above: Performed By: #### B MP ####[facility] [address] [place] [address]Dr. Kamalasven Hawk EGFR-AF SWAZI >60 Normal >=60 [facility] Comment on above: Performed By: #### B MP ####[facility] [address] [phone]. Kamalasven Hawk EGFR-NON AF SWAZI 56 mL/min/1.73m2 Critically low >=60 [facility] Comment on above: Performed By: #### B MP ####[facility] [address] [place] [address]Dr. Sruthi Arechiga Glucose [Mass/Vol] 174 mg/dL Critically high 74-106 [facility] Comment on above: Performed By: #### B MP ####[facility] [address] [place], [place] [address]Dr. Sruthi Arechiga Potassium [Moles/Vol] 4.3 mmol/L Normal 3.5-5.1 [facility] Comment on above: Performed By: #### B MP ####[facility] Bxnx[address]vfq[address] [place], [place] [address]Dr. Sruthi Arechiga Sodium [Moles/Vol] 134 mmol/L Critically low 136-145 [facility] Comment on above: Performed By: #### B MP ####[facility] [address]vsufeld[address] [place], [place] [address]Dr. Sruthi Arechiga Urea nitrogen [Mass/Vol] 22.0 mg/dL Critically high 7.0-18.0 [facility] Comment on above: Performed By: #### B MP ####[facility] [address]fr[address] [place], [place] [address]Dr. Sruthi Arechiga Urea nitrogen/Creatinine [Mass ratio] 22.2 mg/mg Normal [facility] Comment on above: Performed By: #### B MP ####[facility] [address] [place], [place] [address]Dr. Sruthi Arechiga BNPon 07-04-2022 Natriuretic peptide B (Bld) [Mass/Vol] 1822.0 pg/mL Critically high <=900.0 [facility] Comment on above: Performed By: #### C BC #### [facility] [address] [place] [address] Dr. Sruthi Arechiga CBC AUTO DIFFon 07-04-2022 BASO # 0.0 103/ul Normal 0.0-0.1 [facility] Comment on above: Performed By: #### C BC #### [facility] [address] [place] [address] Dr. Sruthi Arechiga Basophils/100 WBC (Bld) 0.4 % Normal 0.2-2.0 [facility] Comment on above: Performed By: #### C BC #### [facility] [address] [place] [address] Dr. Sruthi Arechiga EO # 0.2 103/ul Normal 0.0-0.7 [facility] Comment on above: Performed By: #### C BC #### [facility] [address] [place] [address] Dr. Sruthi Arechiga Eosinophils/100 WBC (Bld) 2.4 % Normal 0.9-7.0 [facility] Comment on above: Performed By: #### C BC #### [facility] [address] [place] [address] Dr. Sruthi Arechiga Erythrocyte distribution width (RBC) [Ratio] 13.5 % Normal 11.0-15.0 [facility] Comment on above: Performed By: #### C BC #### [facility] [address] [place] [address] Dr. Sruthi Arechiga Hematocrit (Bld) [Volume fraction] 36.4 % Normal 36.0-48.0 [facility] Comment on above: Performed By: #### C BC #### [facility] [address] [place] [address] Dr. Sruthi Arechiga Hemoglobin (Bld) [Mass/Vol] 11.6 g/dL Critically low 12.0-16.0 [facility] Comment on above: Performed By: #### C BC #### [facility] [address] [place] [address] Dr. Sruthi Arechiga IG # 0.11 10e3/ul Critically high 0.00-0.03 [facility] Comment on above: Performed By: #### C BC #### [facility] [address] [place] [address] Dr. Sruthi Arechiga IG % 1.2 % Critically high 0.0-0.5 [facility] Comment on above: Performed By: #### C BC #### [facility] [address] [place] [address] Dr. Sruthi Arechiga LYMPH # 1.7 103/ul Normal 1.2-3.8 [facility] Comment on above: Performed By: #### C BC #### [facility] [address] [place] [address] Dr. Sruthi Arechiga Lymphocytes/100 WBC (Bld) 19.0 % Critically low 20.5-60.0 [facility] Comment on above: Performed By: #### C BC #### [facility] [address] [place] [address] Dr. Sruthi Arechiga MANUAL DIFF REQ NO Normal [facility] Comment on above: Performed By: #### C BC #### [facility] [address] [place] [address] Dr. Sruthi Arechiga MCH (RBC) [Entitic mass] 27.3 pg Normal 26.7-34.0 [facility] Comment on above: Performed By: #### C BC #### [facility] [address] [place] [address] Dr. Sruthi Arechiga MCHC (RBC) [Mass/Vol] 31.9 g/dL Normal 29.9-35.2 [facility] Comment on above: Performed By: #### C BC #### [facility] [address] [place] [address] Dr. Sruthi Arechiga MCV (RBC) [Entitic vol] 85.6 fL Normal 81.0-99.0 [facility] Comment on above: Performed By: #### C BC #### [facility] [address] [place] [address] Dr. Sruthi Arechiga MONO # 1.1 103/ul Critically high 0.3-0.8 [facility] Comment on above: Performed By: #### C BC #### [facility] [address] [place] [address] Dr. Sruthi Arechiga Monocytes/100 WBC (Bld) 11.9 % Normal 1.7-12.0 [facility] Comment on above: Performed By: #### C BC #### [facility] [address] [place] [address] Dr. Sruthi Arechiga NEUT # 6.0 103/ul Normal 1.4-6.5 [facility] Comment on above: Performed By: #### C BC #### [facility] [address] [place] [address] Dr. Sruthi Arechiga Neutrophils/100 WBC (Bld) 65.1 % Normal 43.0-75.0 [facility] Comment on above: Performed By: #### C BC #### [facility] [address] [place] [address] Dr. Sruthi Arechiga Platelet mean volume (Bld) [Entitic vol] 10.7 fL Normal 9.5-13.5 [facility] Comment on above: Performed By: #### C BC #### [facility] [address] [place] [address] Dr. Sruthi Arechiga PLT 264 103/ul Normal 150-450 [facility] Comment on above: Performed By: #### C BC #### [facility] [address] [place] [address] Dr. Sruthi Arechiga RBC 4.25 106/ul Normal 4.20-5.40 [facility] Comment on above: Performed By: #### C BC #### [facility] [address] [place] [address] Dr. Sruthi Arechiga WBC 9.2 103/ul Normal 4.0-11.0 [facility] Comment on above: Performed By: #### C BC #### [facility] [address] [place] [address] Dr. Sruthi Arechiga Covid-19 PCR (CVDTB)on 06-11 SARS-CoV-2 (COVID-19) RNA KOLE+probe Ql (Unsp spec) Not detected Normal NOT DETECTED [facility] Comment on above: Result Comment: When [...] for this test is supported by the [place] of Health and Human Service's declaration that [...] be used). Performed By: #### C VDTBH ####[facility] [id number] [place] [address]Dr. Sruthi Arechiga ER URINE PROFILEon 2 Bilirubin Ql (U) Negative Normal NEGATIVE [facility] Comment on above: Performed By: #### C VDTBH #### [facility] [address] [place] [address] Dr. Sruthi Arechiga Clarity (U) CLEAR Normal CLEAR [facility] Comment on above: Performed By: #### C VDTBH #### [facility] [address] [place] [address] Dr. Sruthi Arechiga Color (U) LT. YELLOW Normal YELLOW [facility] Comment on above: Performed By: #### C VDTBH #### [facility] [address] [place] [address] Dr. Sruthi Arechiga ERUAHMl A micrscopic examination will be performed if indicated. Normal [facility] Comment on above: Performed By: #### C VDTBH #### [facility] [address] [place] [address] Dr. Sruthi Arechiga Glucose Ql (U) >1000 Abnormal NEGATIVE [facility] Comment on above: Performed By: #### C VDTBH #### [facility] [address] [place] [address] Dr. Sruthi Arechiga Hemoglobin Ql (U) Negative Normal NEGATIVE [facility] Comment on above: Performed By: #### C VDTBH #### [facility] [address] [place] [address] Dr. Sruthi Arechiga Ketones Ql (U) Negative Normal NEGATIVE [facility] Comment on above: Performed By: #### C VDTBH #### [facility] [address] [place] [address] Dr. Sruthi Arechiga LEUKOCYTES SMALL Abnormal NEGATIVE [facility] Comment on above: Performed By: #### C VDTBH #### [facility] [address] [place] [address] Dr. Sruthi Arechiga Nitrite Ql (U) Negative Normal NEGATIVE [facility] Comment on above: Performed By: #### C VDTBH #### [facility] [address] [place] [address] Dr. Sruthi Arechiga pH (U) 6.0 [pH] Normal 5-9 [facility] Comment on above: Performed By: #### C VDTBH #### [facility] [address] [place] [address] Dr. Sruthi Arechiga SPEC GRAVITY <=1.005 Abnormal 1.005-<=1.02 5 [facility] Comment on above: Performed By: #### C VDTBH #### [facility] [address] [place] [address] Dr. Sruthi Arechiga UA PROTEIN Negative Normal NEGATIVE/ TRACE [facility] Comment on above: Performed By: #### C VDTBH #### [facility] [address] [place] [address] Dr. Sruthi Arechiga UR MICRO IND INDICATED Normal [facility] Comment on above: Performed By: #### C VDTBH #### [facility] [address] [place] [address] Dr. Sruthi Arechiga Urobilinogen Qn (U) 0.2 {Willow'U}/dL Normal 0.2 - 1. 0 [facility] Comment on above: Performed By: #### C VDTBH #### [facility] [address] [address] [address] Sruthi Arechiga POINT OF CARE GLUCOSEon 06-11 Glucose [Mass/Vol] 262 mg/dL Critically high 74-106 [facility] Comment on above: Performed By: #### P OCGLUC ####[facility] [id number] [place] [address]Dr. Sruthi Arechiga PROF CHEM 8 (BAS METB)on Anion gap [Moles/Vol] 13.0 mmol/L Normal [facility] Comment on above: Performed By: #### C BC #### [facility] [address] [address] [address] Sruthi Arechiga Calcium [Mass/Vol] 9.3 mg/dL Normal 8.5-10.1 [facility] Comment on above: Performed By: #### C BC #### [facility] [address] [place] [address] Dr. Sruthi Arechiga Chloride [Moles/Vol] 99 mmol/L Normal 98-107 [facility] Comment on above: Performed By: #### C BC #### [facility] [address] [address] [address] Sruthi Arechiga CO2 [Moles/Vol] 26.3 mmol/L Normal 21.0-32.0 [facility] Comment on above: Performed By: #### C BC #### [facility] [address] [place] [address] Dr. Sruthi Arechiga Creatinine [Mass/Vol] 0.95 mg/dL Normal 0.55-1.02 [facility] Comment on above: Performed By: #### C BC #### [facility] [address] [place] [address] Dr. Sruthi Arechiga EGFR-AF SWAZI >60 Normal >=60 [facility] Comment on above: Performed By: #### C BC #### [facility] [address] [address] [address] Sruthi Arechiga EGFR-NON AF SWAZI 58 mL/min/1.73m2 Critically low >=60 [facility] Comment on above: Performed By: #### C BC #### [facility] [address] [address] [address] Sruthi Arechiga Glucose [Mass/Vol] 331 mg/dL Critically high 74-106 [facility] Comment on above: Performed By: #### C BC #### [facility] [address] [address] [address] Sruthi Arechiga Potassium [Moles/Vol] 4.3 mmol/L Normal 3.5-5.1 [facility] Comment on above: Performed By: #### C BC #### [facility] [address] [address] [address] rSuthi Arechiga Sodium [Moles/Vol] 134 mmol/L Critically low 136-145 [facility] Comment on above: Performed By: #### C BC #### [facility] [address] [address] [address] Sruthi Arechiga Urea nitrogen [Mass/Vol] 20.0 mg/dL Critically high 7.0-18.0 [facility] Comment on above: Performed By: #### C BC #### [facility] [address] [place] [address] Dr. Sruthi Arechiga Urea nitrogen/Creatinine [Mass ratio] 21.1 mg/mg Normal [facility] Comment on above: Performed By: #### C BC #### [facility] [address] [place] [address] Dr. Sruthi Arechiga TROPONIN, HIGH SENSITIVITYon 07-04-2022 HSTROP 113.1 pg/mL Critically high 4.0-51.3 [facility] Comment on above: Result Comment: CUT- OFF POINTS HAVE BEEN ESTABLISHED BASED ON THE FOURTH UNIVERSAL DEFINITIONS OF MYOCARDIAL INFARCTION. THE UPPER REFERENCE LIMIT (URL) OF TROPONIN, DEFINED THE 99TH PERCENTILE OF cTnI DISTRIBUTION IN A REFERENCE POPULATION, HAS BEEN CONFIRMED THE DECISION THRESHOLD FOR TN DIAGNOSIS. Performed By: #### C BC #### [facility] [address] [place] [address] Dr. Sruthi Arechiga HSTROP 126.6 pg/mL Critically high 4.0-51.3 [facility] Comment on above: Result Comment: CUT- OFF POINTS HAVE BEEN ESTABLISHED BASED ON THE FOURTH UNIVERSAL DEFINITIONS OF MYOCARDIAL INFARCTION. THE UPPER REFERENCE LIMIT (URL) OF TROPONIN, DEFINED THE 99TH PERCENTILE OF cTnI DISTRIBUTION IN A REFERENCE POPULATION, HAS BEEN CONFIRMED THE DECISION THRESHOLD FOR TN DIAGNOSIS. Performed By: #### C VDTBH #### [facility] [address] [place] [address] Dr. Sruthi Arechiga URINE MICROSCOPIC ONLYon BACTERIA LARGE Abnormal NONE SEEN [facility] Comment on above: Performed By: #### C VDTBH #### [facility] [address] [place] [address] Dr. Sruthi Arechiga Bacteria identified Cx Nom (U) INDICATED Normal [facility] Comment on above: Performed By: #### C VDTBH #### [facility] [address] [place] [address] Dr. Sruthi Arechiga CAST NONE SEEN Normal NONE SEEN [facility] Comment on above: Performed By: #### C VDTBH #### [facility] [address] [place] [address] Dr. Sruthi Arechiga Crystals LM Nom (Urine sed) NONE SEEN Normal NONE SEEN [facility] Comment on above: Performed By: #### C VDTBH #### [facility] [address] [place] [address] Dr. Sruthi Arechiga Epithelial cells LM Ql (Urine sed) FEW Abnormal NONE SEEN /RARE [facility] Comment on above: Performed By: #### C VDTBH #### [facility] [address] [place] [address] Dr. Sruthi Arechiga MUCOUS NONE SEEN Normal NONE SEEN [facility] Comment on above: Performed By: #### C VDTBH #### [facility] [address] [place] [address] Dr. Sruthi Arechiga RBC NONE SEEN Abnormal 0-2 [facility] Comment on above: Performed By: #### C VDTBH #### [facility] [address] [place] [address] Dr. Sruthi Arechiga WBC 10-20 Abnormal NONE SEEN [facility] Comment on above: Performed By: #### C VDTB #### [facility] [address] [address] [address] Sruthi Arechiga XR CHEST 1 Von [...] GERMAIN COY Date: 2022-07-04 11:53 Normal [facility] CBC COMPLETE BLOOD COUNTon 0 07-03-2022 Erythrocyte distribution width (RBC) [Ratio] 13.4 % Normal 11.5-15.0 [facility] Comment on above: Order Comment: No: D o not add to previous draw Performed By: #### 8 [id number] #### [facility] [address] [address], [facility] Hematocrit (Bld) [Volume fraction] 33.6 % Low 36.0-45.0 [facility] Comment on above: Order Comment: No: D o not add to previous draw Performed By: #### 8 [id number] #### [facility] [address] [place] [address], [place] Hemoglobin (Bld) [Mass/Vol] 10.6 g/dL Low 12.0-15.0 [facility] Comment on above: Order Comment: No: D o not add to previous draw Performed By: #### 8 [id number] #### [facility] [address] [place] [address], [place] MCH (RBC) [Entitic mass] 26.6 pg Low 27.0-33.0 [facility] Comment on above: Order Comment: No: D o not add to previous draw Performed By: #### 8 [id number] #### [facility] [address] [place] [id number], [facility] MCHC (RBC) [Mass/Vol] 31.5 g/dL Low 32.0-35.0 [facility] Comment on above: Order Comment: No: D o not add to previous draw Performed By: #### 8 [id number] #### [facility] [address] [place] [id number], [facility] MCV (RBC) [Entitic vol] 84.4 fL Normal 82.0-98.0 [facility] Comment on above: Order Comment: No: D o not add to previous draw Performed By: #### 8 [id number] #### [facility] [address] [place] [address], [facility] Nucleated RBC/100 WBC (Bld) [Ratio] 0 % Normal 0-0 [facility] Comment on above: Order Comment: No: D o not add to previous draw Performed By: #### 8 [id number] #### [facility] [address] [place] [id number], [facility] PLAT CNT 247 10*3/uL Normal 150-400 [facility] Comment on above: Order Comment: No: D o not add to previous draw Performed By: #### 8 [id number] #### [facility] [address] [place] [id number], [facility] RBC (Bld) [#/Vol] 3.98 10*6/uL Normal 3.80-5.00 [facility] Comment on above: Order Comment: No: D o not add to previous draw Performed By: #### 8 [id number] #### [facility] [address] [place] [id number], [facility] WBC (Bld) [#/Vol] 10.25 10*3/uL Normal 4.00-10.60 [facility] Comment on above: Order Comment: No: D o not add to previous draw Performed By: #### 8 [id number] #### [facility] [address] [place] [address], [facility] POC GLUCOSE LABon 07-03-2022 Glucose [Mass/Vol] 204 mg/dL High 70-100 [facility] Comment on above: Performed By: #### 1 0070, [id number], [id number] #### [facility] [address] [place] [address], [facility] Glucose [Mass/Vol] 135 mg/dL High 70-100 [facility] Comment on above: Performed By: #### 8 [id number] #### [facility] [address] [place] [address], [facility] UFH HEPARIN ASSAYon 07-03-20 22 UNFRACTIONATED HEPARIN <0.10 Critically low 0.30-0.70 [facility] Comment on above: Result Comment: Resu lt checked and called. Accurately read back by Chanda @[employer] Rivaroxaban and Apixaban will interfere with the anti Xa assay used to monitor UFH and LMWH. Performed By: #### 3 [id number] #### [facility] [address] [place] [address], [facility] BASIC METABOLIC PANELon 06-11 Calcium [Mass/Vol] 8.8 mg/dL Normal 8.6-10.3 [facility] Comment on above: Order Comment: No: D o not add to previous draw Performed By: #### 8 [id number] #### [facility] [address] [place] [address], [facility] Chloride [Moles/Vol] 104 mmol/L Normal 98-107 [facility] Comment on above: Order Comment: No: D o not add to previous draw Performed By: #### 8 [id number] #### [facility] [address] [place] [address], [facility] CO2 [Moles/Vol] 26 mmol/L Normal 21-31 [facility] Comment on above: Order Comment: No: D o not add to previous draw Performed By: #### 8 [id number] #### [facility] [address] [place] [address], [place] Creatinine [Mass/Vol] 0.62 mg/dL Normal 0.60-1.20 [facility] Comment on above: Order Comment: No: D o not add to previous draw Performed By: #### 8 [id number] #### [facility] [address] [place] [address], [place] GFR/1.73 sq M.predicted among non-blacks MDRD (S/P/Bld) [Vol rate/Area] mL/min/{1.73_m2} Normal >60 [facility] Comment on above: Order Comment: No: D o not add to previous draw Result Comment: [facility]'s estimated glomerular filtration rate (eGFR) will [...] individuals. Performed By: #### 8 [id number] #### [facility] [address] [place] [address], [place] Glucose [Mass/Vol] 212 mg/dL High 70-100 [facility] Comment on above: Order Comment: No: D o not add to previous draw Performed By: #### 8 [id number] #### [facility] [address] [place] [address], [place] Potassium [Moles/Vol] 3.8 mmol/L Normal 3.5-5.1 [facility] Comment on above: Order Comment: No: D o not add to previous draw Performed By: #### 8 [id number] #### [facility] [address] Sodium [Moles/Vol] 134 mmol/L Low 136-145 [facility] Comment on above: Order Comment: No: D o not add to previous draw Performed By: #### 8 [id number] #### [facility] [address] Urea nitrogen [Mass/Vol] 15 mg/dL Normal 7-25 [facility] Comment on above: Order Comment: No: D o not add to previous draw Performed By: #### 8 [id number] #### [facility] [address] CBC W/DIFFon 07-02-2022 ABS IMM GRANS 0.1 10*3/uL Normal 0.0-0.2 [facility] Comment on above: Order Comment: No: D o not add to previous draw Performed By: #### 8 [id number] #### [facility] [address] ABS NEUTROPHILS 6.3 10*3/uL Normal 1.6-7.6 [facility] Comment on above: Order Comment: No: D o not add to previous draw Performed By: #### 8 [id number] #### [facility] [address] [place] [address], [facility] Basophils (Bld) [#/Vol] 0.0 10*3/uL Normal 0.0-0.2 [facility] Comment on above: Order Comment: No: D o not add to previous draw Performed By: #### 8 [id number] #### [facility] [address] [place] [address], [facility] Basophils/100 WBC (Bld) 0.3 % Normal 0.0-1.0 [facility] Comment on above: Order Comment: No: D o not add to previous draw Performed By: #### 8 [id number] #### [facility] [address] [place] [address], [facility] Eosinophils (Bld) [#/Vol] 0.2 10*3/uL Normal 0.0-0.5 [facility] Comment on above: Order Comment: No: D o not add to previous draw Performed By: #### 8 [id number] #### [facility] [address] [place] [address], [facility] Eosinophils/100 WBC (Bld) 2.3 % Normal 0.0-6.0 [facility] Comment on above: Order Comment: No: D o not add to previous draw Performed By: #### 8 [id number] #### [facility] [address] [place] [id number], [facility] Erythrocyte distribution width (RBC) [Ratio] 13.5 % Normal 11.5-15.0 [facility] Comment on above: Order Comment: No: D o not add to previous draw Performed By: #### 8 [id number] #### [facility] [address] [place] [address], [facility] Hematocrit (Bld) [Volume fraction] 31.3 % Low 36.0-45.0 [facility] Comment on above: Order Comment: No: D o not add to previous draw Performed By: #### 8 [id number] #### [facility] [address] [place] [address], [facility] Hemoglobin (Bld) [Mass/Vol] 10.2 g/dL Low 12.0-15.0 [facility] Comment on above: Order Comment: No: D o not add to previous draw Performed By: #### 8 [id number] #### [facility] [address] [place] [address], [facility] IMMATURE GRANS 0.8 % Normal 0.0-1.0 [facility] Comment on above: Order Comment: No: D o not add to previous draw Performed By: #### 8 [id number] #### [facility] [address] [place] [address], [facility] Lymphocytes (Bld) [#/Vol] 1.9 10*3/uL Normal 1.2-4.0 [facility] Comment on above: Order Comment: No: D o not add to previous draw Performed By: #### 8 [id number] #### [facility] [address] [place] [address], [facility] Lymphocytes/100 WBC (Bld) 19.4 % Low 20.0-45.0 [facility] Comment on above: Order Comment: No: D o not add to previous draw Performed By: #### 8 [id number] #### [facility] [address] [place] [address], [facility] MCH (RBC) [Entitic mass] 27.5 pg Normal 27.0-33.0 [facility] Comment on above: Order Comment: No: D o not add to previous draw Performed By: #### 8 [id number] #### [facility] [address] [place] [address], [facility] MCHC (RBC) [Mass/Vol] 32.6 g/dL Normal 32.0-35.0 [facility] Comment on above: Order Comment: No: D o not add to previous draw Performed By: #### 8 [id number] #### [facility] [address] [place] [address], [facility] MCV (RBC) [Entitic vol] 84.4 fL Normal 82.0-98.0 [facility] Comment on above: Order Comment: No: D o not add to previous draw Performed By: #### 8 [id number] #### [facility] [address] [place] [address], [facility] Monocytes (Bld) [#/Vol] 1.3 10*3/uL High 0.1-1.0 [facility] Comment on above: Order Comment: No: D o not add to previous draw Performed By: #### 8 [id number] #### [facility] [address] [place] [address], [place] MONOS 13.1 % High 5.0-12.0 [facility] Comment on above: Order Comment: No: D o not add to previous draw Performed By: #### 8 [id number] #### [facility] [address] [place] [address], [place] Neutrophils/100 WBC (Bld) 64.1 % Normal 40.0-72.0 [facility] Comment on above: Order Comment: No: D o not add to previous draw Performed By: #### 8 [id number] #### [facility] [address] [place] [address], [place] Nucleated RBC/100 WBC (Bld) [Ratio] 0 % Normal 0-0 [facility] Comment on above: Order Comment: No: D o not add to previous draw Performed By: #### 8 [id number] #### [facility] [address] [place] [address], [place] PLAT CNT 233 10*3/uL Normal 150-400 [facility] Comment on above: Order Comment: No: D o not add to previous draw Performed By: #### 8 [id number] #### [facility] [address] [place] [address], [place] RBC (Bld) [#/Vol] 3.71 10*6/uL Low 3.80-5.00 [facility] Comment on above: Order Comment: No: D o not add to previous draw Performed By: #### 8 [id number] #### [facility] [address] [place] [address], [place] WBC (Bld) [#/Vol] 9.85 10*3/uL Normal 4.00-10.60 [facility] Comment on above: Order Comment: No: D o not add to previous draw Performed By: #### 8 [id number] #### [facility] [address] [address], [facility] CTA ABDOMEN AND PELVISon CTA ABDOMEN AND PELVIS [facility] Department of Radiology [address] [place] [id number] Patient Name: MARIMAR PATEL : 1955 Sex: F Age: Race: White Pt. Location: [id number] Patient Status: D Ordered Date: 07/02/2022 8:20:00 AM Completed Date: 07/02/2022 01:20 PM Requesting Provider: ANASTASIIA CARBALLO Attending Provider: ARGELIA ROMERO Report Copy To: Signs & Symptoms: Other History: See Comments Comments: Other, TAVR protocol Exam: CTA ABDOMEN AND PELVIS CTA ABDOMEN AND PELVIS 07/02/2022 1:20 PM [...] achievable Electronically signed: Yuni Zhu. Transcribed by: [email or web address], User Resident: Electronically Signed by: YUNI ZHU @ 07/12/2022 01:12 PM Normal [facility] Comment on above: Order Comment: No: D o not add to previous draw No collection time noted on specimen or requisition. The collection time recorded is the time of receipt in the lab. CTA CHESTon 07-02-2022 CTA CHEST [facility] Department of Radiology [address] [place] [id number] Patient Name: MARIMAR PATEL : 1955 Sex: F Age: Race: White Pt. Location: [id number] Patient Status: D Ordered Date: 07/02/2022 8:20:00 AM Completed Date: 07/02/2022 01:20 PM Requesting Provider: ANASTASIIA CARBALLO Attending Provider: ARGELIA ROMERO Report Copy To: Signs & Symptoms: Other History: See Comments Comments: Other, TAVR protocol CTS, EKG gated Exam: CTA CHEST CTA CHEST 07/02/2022 1:20 PM CLINICAL INDICATIONS: [...] 3 cusped view, anterior view and no PERSONAL LINES UNDERWRITER-CAU view are obtained in 3-D volume rendered [...] calcification. Electronically signed: Yuni Zhu. Transcribed by: [email or web address], User Resident: Electronically Signed by: YUNI ZHU @ 07/12/2022 01:06 PM Normal [facility] Comment on above: Order Comment: No: D o not add to previous draw No collection time noted on specimen or requisition. The collection time recorded is the time of receipt in the lab. Cardiovascular Lab Reporton 07-02-2022 Cardiovascular Lab Report [facility] Patient Name: Marimar Patel [facility] MR #: [id number] Department of Physician: Alex Kelly M.D. Division of Service Date: 07/01/2022 Cardiology Birthdate: 1955 Adult Cardiovascular Room #: 4AB [id number] [facility] [address] [facility] [place] [address] Cardiovascular Laboratory Report CLINICAL PRESENTATION: The patient [...] ultrasound guidance and micropuncture access technique, a 6-Icelandic sheath was placed in right common femoral [...] exchanges were made over the J-tip guidewire, 6-Icelandic JL4 was used to engage the left main coronary artery. A 6-Icelandic JR4 was used to engage the right coronary artery. A 6-Icelandic JR4 was used to engage the radial bypass graft to the D1 and the SVG to the OM2. The 6-Icelandic JR4 was also used to engage the [...] P/Doyle Betts M.D. Date Trans: 07/02/2022 10:08 Berry/abdiaziz [id number] cc: Nik Bell M.D. [address] [address] Normal [facility] MAGNESIUM BLOODon 07-02-2022 Magnesium [Mass/Vol] 1.9 mg/dL Normal 1.9-2.7 [facility] Comment on above: Order Comment: No: D o not add to previous draw Performed By: #### 8 [id number] #### [facility] [address] [place] [address], [place] POC GLUCOSE LABon 07-02-2022 Glucose [Mass/Vol] 268 mg/dL High 70-100 [facility] Comment on above: Performed By: #### 8 [id number] #### [facility] [address] [place] [address], [place] Glucose [Mass/Vol] 255 mg/dL High 70-100 [facility] Comment on above: Performed By: #### 8 5499 #### [facility] [address] [place] [address], [place] Glucose [Mass/Vol] 173 mg/dL High 70-100 [facility] Comment on above: Performed By: #### 8 5499 #### [facility] [address] [place] [address], [place] Glucose [Mass/Vol] 193 mg/dL High 70-100 [facility] Comment on above: Performed By: #### 1 0070, 94124, 51188 #### [facility] [address] [place] [address], [place] Glucose [Mass/Vol] 185 mg/dL High 70-100 [facility] Comment on above: Performed By: #### 1 0070, 26213, 29423 #### [facility] [address] [place] [address], [facility] UFH HEPARIN ASSAYon 07-02-20 22 UNFRACTIONATED HEPARIN <0.10 Critically low 0.30-0.70 [facility] Comment on above: Result Comment: RESU LTS CHECKED AND CALLED. ACCURATELY READ BACK BY Jessa Schaefer RN at 2200 PMW 07-02-22. Rivaroxaban and Apixaban will interfere with the anti Xa assay used to monitor UFH and LMWH. Performed By: #### 3 5200 #### [facility] [address] [place] [address], [facility] BASIC METABOLIC PANELon 06-11 Calcium [Mass/Vol] 8.5 mg/dL Low 8.6-10.3 [facility] Comment on above: Order Comment: No: D o not add to previous draw Performed By: #### 0 0071, 20352 #### [facility] [address] [place] [address], [facility] Chloride [Moles/Vol] 105 mmol/L Normal 98-107 [facility] Comment on above: Order Comment: No: D o not add to previous draw Performed By: #### 0 0071, 27086 #### [facility] [address] [place] [address], [facility] CO2 [Moles/Vol] 22 mmol/L Normal 21-31 [facility] Comment on above: Order Comment: No: D o not add to previous draw Performed By: #### 0 0071, 57646 #### [facility] [address] [place] [address], [place] Creatinine [Mass/Vol] 0.57 mg/dL Low 0.60-1.20 [facility] Comment on above: Order Comment: No: D o not add to previous draw Performed By: #### 0 0071, 69911 #### [facility] [address] [place] [address], [facility] GFR/1.73 sq M.predicted among non-blacks MDRD (S/P/Bld) [Vol rate/Area] mL/min/{1.73_m2} Normal >60 [facility] Comment on above: Order Comment: No: D o not add to previous draw Result Comment: [facility]'s estimated glomerular filtration rate (eGFR) will [...] of individuals. Performed By: #### 0 0071, 87506 #### [facility] [address] [place] [address], [facility] Glucose [Mass/Vol] 164 mg/dL High 70-100 [facility] Comment on above: Order Comment: No: D o not add to previous draw Performed By: #### 0 0071, 74183 #### [facility] [address] [facility] [place] [address], [facility] Potassium [Moles/Vol] 3.8 mmol/L Normal 3.5-5.1 [facility] Comment on above: Order Comment: No: D o not add to previous draw Performed By: #### 0 0071, 79801 #### [facility] [address] [place] [address], [place] Sodium [Moles/Vol] 137 mmol/L Normal 136-145 [facility] Comment on above: Order Comment: No: D o not add to previous draw Performed By: #### 0 0071, 29050 #### [facility] [address] [place] [address], [place] Urea nitrogen [Mass/Vol] 18 mg/dL Normal 7-25 [facility] Comment on above: Order Comment: No: D o not add to previous draw Performed By: #### 0 0071, 80517 #### [facility] [address] [facility] [place] [address], [facility] CBC W/DIFFon 07-01-2022 ABS IMM GRANS 0.1 10*3/uL Normal 0.0-0.2 [facility] Comment on above: Order Comment: No: D o not add to previous draw Performed By: #### 8 5499 #### [facility] [address] [place] [address], [facility] ABS NEUTROPHILS 5.1 10*3/uL Normal 1.6-7.6 [facility] Comment on above: Order Comment: No: D o not add to previous draw Performed By: #### 8 5499 #### [facility] [address] [facility] [place] [address], [facility] Basophils (Bld) [#/Vol] 0.1 10*3/uL Normal 0.0-0.2 [facility] Comment on above: Order Comment: No: D o not add to previous draw Performed By: #### 8 5499 #### [facility] [address] [facility] [place] [id number], [facility] Basophils/100 WBC (Bld) 0.6 % Normal 0.0-1.0 [facility] Comment on above: Order Comment: No: D o not add to previous draw Performed By: #### 8 [id number] #### [facility] [address] [facility] [place] [address], [facility] Eosinophils (Bld) [#/Vol] 0.3 10*3/uL Normal 0.0-0.5 [facility] Comment on above: Order Comment: No: D o not add to previous draw Performed By: #### 8 5499 #### [facility] [address] [place] [address], [facility] Eosinophils/100 WBC (Bld) 2.8 % Normal 0.0-6.0 [facility] Comment on above: Order Comment: No: D o not add to previous draw Performed By: #### 8 5499 #### [facility] [address] [facility] Erythrocyte distribution width (RBC) [Ratio] 13.3 % Normal 11.5-15.0 [facility] Comment on above: Order Comment: No: D o not add to previous draw Performed By: #### 8 5499 #### [facility] [address] [facility] Hematocrit (Bld) [Volume fraction] 32.6 % Low 36.0-45.0 [facility] Comment on above: Order Comment: No: D o not add to previous draw Performed By: #### 8 [id number] #### [facility] [address] [facility] Hemoglobin (Bld) [Mass/Vol] 10.6 g/dL Low 12.0-15.0 [facility] Comment on above: Order Comment: No: D o not add to previous draw Performed By: #### 8 5499 #### [facility] [address] [place] [address], [facility] IMMATURE GRANS 0.7 % Normal 0.0-1.0 [facility] Comment on above: Order Comment: No: D o not add to previous draw Performed By: #### 8 5499 #### [facility] [address] [place] [address], [facility] Lymphocytes (Bld) [#/Vol] 2.4 10*3/uL Normal 1.2-4.0 [facility] Comment on above: Order Comment: No: D o not add to previous draw Performed By: #### 8 5499 #### [facility] [address] [place] [address], [facility] Lymphocytes/100 WBC (Bld) 26.6 % Normal 20.0-45.0 [facility] Comment on above: Order Comment: No: D o not add to previous draw Performed By: #### 8 5499 #### [facility] [address] [place] [address], [facility] MCH (RBC) [Entitic mass] 27.0 pg Normal 27.0-33.0 [facility] Comment on above: Order Comment: No: D o not add to previous draw Performed By: #### 8 5499 #### [facility] [address] [place] [address], [facility] MCHC (RBC) [Mass/Vol] 32.5 g/dL Normal 32.0-35.0 [facility] Comment on above: Order Comment: No: D o not add to previous draw Performed By: #### 8 5499 #### [facility] [address] [place] [address], [facility] MCV (RBC) [Entitic vol] 83.0 fL Normal 82.0-98.0 [facility] Comment on above: Order Comment: No: D o not add to previous draw Performed By: #### 8 5499 #### [facility] [address] [facility] [place] [address], [facility] Monocytes (Bld) [#/Vol] 1.2 10*3/uL High 0.1-1.0 [facility] Comment on above: Order Comment: No: D o not add to previous draw Performed By: #### 8 5499 #### [facility] [address] [place] [address], [facility] MONOS 13.0 % High 5.0-12.0 [facility] Comment on above: Order Comment: No: D o not add to previous draw Performed By: #### 8 5499 #### [facility] [address] [place] [address], [facility] Neutrophils/100 WBC (Bld) 56.3 % Normal 40.0-72.0 [facility] Comment on above: Order Comment: No: D o not add to previous draw Performed By: #### 8 5499 #### [facility] [address] [place] [address], [facility] Nucleated RBC/100 WBC (Bld) [Ratio] 0 % Normal 0-0 [facility] Comment on above: Order Comment: No: D o not add to previous draw Performed By: #### 8 5499 #### [facility] [address] [facility] [address], [facility] PLAT CNT 247 10*3/uL Normal 150-400 [facility] Comment on above: Order Comment: No: D o not add to previous draw Performed By: #### 8 5499 #### [facility] [address] [place] [address], [facility] RBC (Bld) [#/Vol] 3.93 10*6/uL Normal 3.80-5.00 [facility] Comment on above: Order Comment: No: D o not add to previous draw Performed By: #### 8 5499 #### [facility] [address] [facility] [place] [address], [facility] WBC (Bld) [#/Vol] 9.05 10*3/uL Normal 4.00-10.60 [facility] Comment on above: Order Comment: No: D o not add to previous draw Performed By: #### 8 [id number] #### [facility] [address] [place] [address], [facility] MAGNESIUM BLOODon 07-01-2022 Magnesium [Mass/Vol] 1.7 mg/dL Low 1.9-2.7 [facility] Comment on above: Order Comment: No: D o not add to previous draw Performed By: #### 0 0071, 19856 #### [facility] [address] [place] [address], [facility] POC GLUCOSE LABon 07-01-2022 Glucose [Mass/Vol] 253 mg/dL High 70-100 [facility] Comment on above: Performed By: #### 8 5499 #### [facility] [address] [place] [address], [place] Glucose [Mass/Vol] 160 mg/dL High 70-100 [facility] Comment on above: Performed By: #### 8 5499 #### [facility] [address] [place] [address], [place] Glucose [Mass/Vol] 174 mg/dL High 70-100 [facility] Comment on above: Performed By: #### 8 5499 #### [facility] [address] [place] [address], [place] Glucose [Mass/Vol] 185 mg/dL High 70-100 [facility] Comment on above: Performed By: #### 8 5499 #### [facility] [address] [place] [address], [place] Glucose [Mass/Vol] 176 mg/dL High 70-100 [facility] Comment on above: Performed By: #### 8 5499 #### [facility] [address] [place] [address], [facility] UFH HEPARIN ASSAYon 07-01-20 22 UNFRACTIONATED HEPARIN 0.88 IU/mL High 0.30-0.70 [facility] Comment on above: Result Comment: Racheal roxaban and Apixaban will interfere with the anti Xa assay used to monitor UFH and LMWH. Performed By: #### 3 5200 #### [facility] [address] [place] [address], [place] BASIC METABOLIC PANELon 08-2 Calcium [Mass/Vol] 8.5 mg/dL Low 8.6-10.3 [facility] Comment on above: Order Comment: No: D o not add to previous draw Performed By: #### 1 0070, 87362, 79366 #### [facility] [address] [place] [address], [place] Chloride [Moles/Vol] 103 mmol/L Normal 98-107 [facility] Comment on above: Order Comment: No: D o not add to previous draw Performed By: #### 1 0070, 30192, 99486 #### [facility] [address] [place] [address], [place] CO2 [Moles/Vol] 25 mmol/L Normal 21-31 [facility] Comment on above: Order Comment: No: D o not add to previous draw Performed By: #### 1 0070, 20744, 66030 #### [facility] [address] [place] [address], [facility] Creatinine [Mass/Vol] 0.50 mg/dL Low 0.60-1.20 [facility] Comment on above: Order Comment: No: D o not add to previous draw Performed By: #### 1 0070, 54785, 67545 #### [facility] [address] [place] [address], [place] GFR/1.73 sq M.predicted among non-blacks MDRD (S/P/Bld) [Vol rate/Area] mL/min/{1.73_m2} Normal >60 [facility] Comment on above: Order Comment: No: D o not add to previous draw Result Comment: [facility]'s estimated glomerular filtration rate (eGFR) will [...] of individuals. Performed By: #### 1 0070, 75818, 39500 #### [facility] [address] [place] [address], [place] Glucose [Mass/Vol] 166 mg/dL High 70-100 [facility] Comment on above: Order Comment: No: D o not add to previous draw Performed By: #### 1 0, 93489, 87617 #### [facility] [address] Potassium [Moles/Vol] 3.3 mmol/L Low 3.5-5.1 [facility] Comment on above: Order Comment: No: D o not add to previous draw Performed By: #### 1 0, 58453, 41185 #### [facility] [address] Sodium [Moles/Vol] 138 mmol/L Normal 136-145 [facility] Comment on above: Order Comment: No: D o not add to previous draw Performed By: #### 1 69, 04992, 10283 #### [facility] [address] Urea nitrogen [Mass/Vol] 17 mg/dL Normal 7-25 [facility] Comment on above: Order Comment: No: D o not add to previous draw Performed By: #### 1 69, 83058, 14488 #### [facility] [address] CBC W/DIFFon 06-30-2022 ABS IMM GRANS 0.1 10*3/uL Normal 0.0-0.2 [facility] Comment on above: Order Comment: No: D o not add to previous draw No collection time noted on specimen or requisition. The collection time recorded is the time of receipt in the lab. Performed By: #### 3 5200 #### [facility] [address] ABS NEUTROPHILS 4.4 10*3/uL Normal 1.6-7.6 [facility] Comment on above: Order Comment: No: D o not add to previous draw No collection time noted on specimen or requisition. The collection time recorded is the time of receipt in the lab. Performed By: #### 3 5200 #### [facility] [address] [place] [address], [facility] Basophils (Bld) [#/Vol] 0.1 10*3/uL Normal 0.0-0.2 [facility] Comment on above: Order Comment: No: D o not add to previous draw No collection time noted on specimen or requisition. The collection time recorded is the time of receipt in the lab. Performed By: #### 3 5200 #### [facility] [address] [facility] [place] [address], [facility] Basophils/100 WBC (Bld) 0.6 % Normal 0.0-1.0 [facility] Comment on above: Order Comment: No: D o not add to previous draw No collection time noted on specimen or requisition. The collection time recorded is the time of receipt in the lab. Performed By: #### 3 5200 #### [facility] [address] [place] [address], [facility] Eosinophils (Bld) [#/Vol] 0.3 10*3/uL Normal 0.0-0.5 [facility] Comment on above: Order Comment: No: D o not add to previous draw No collection time noted on specimen or requisition. The collection time recorded is the time of receipt in the lab. Performed By: #### 3 5200 #### [facility] [address] [place] [address], [facility] Eosinophils/100 WBC (Bld) 3.3 % Normal 0.0-6.0 [facility] Comment on above: Order Comment: No: D o not add to previous draw No collection time noted on specimen or requisition. The collection time recorded is the time of receipt in the lab. Performed By: #### 3 5200 #### [facility] [address] [place] [address], [facility] Erythrocyte distribution width (RBC) [Ratio] 13.2 % Normal 11.5-15.0 [facility] Comment on above: Order Comment: No: D o not add to previous draw No collection time noted on specimen or requisition. The collection time recorded is the time of receipt in the lab. Performed By: #### 3 5200 #### [facility] [address] Hematocrit (Bld) [Volume fraction] 35.3 % Low 36.0-45.0 [facility] Comment on above: Order Comment: No: D o not add to previous draw No collection time noted on specimen or requisition. The collection time recorded is the time of receipt in the lab. Performed By: #### 3 5200 #### [facility] [address] Hemoglobin (Bld) [Mass/Vol] 11.2 g/dL Low 12.0-15.0 [facility] Comment on above: Order Comment: No: D o not add to previous draw No collection time noted on specimen or requisition. The collection time recorded is the time of receipt in the lab. Performed By: #### 3 5200 #### [facility] [address] IMMATURE GRANS 0.7 % Normal 0.0-1.0 [facility] Comment on above: Order Comment: No: D o not add to previous draw No collection time noted on specimen or requisition. The collection time recorded is the time of receipt in the lab. Performed By: #### 3 5200 #### [facility] [address] Lymphocytes (Bld) [#/Vol] 2.3 10*3/uL Normal 1.2-4.0 [facility] Comment on above: Order Comment: No: D o not add to previous draw No collection time noted on specimen or requisition. The collection time recorded is the time of receipt in the lab. Performed By: #### 3 5200 #### [facility] [address] Lymphocytes/100 WBC (Bld) 28.1 % Normal 20.0-45.0 [facility] Comment on above: Order Comment: No: D o not add to previous draw No collection time noted on specimen or requisition. The collection time recorded is the time of receipt in the lab. Performed By: #### 3 5200 #### [facility] [address] [place] [address], [facility] MCH (RBC) [Entitic mass] 26.3 pg Low 27.0-33.0 [facility] Comment on above: Order Comment: No: D o not add to previous draw No collection time noted on specimen or requisition. The collection time recorded is the time of receipt in the lab. Performed By: #### 3 5200 #### [facility] [address] [place] [address], [facility] MCHC (RBC) [Mass/Vol] 31.7 g/dL Low 32.0-35.0 [facility] Comment on above: Order Comment: No: D o not add to previous draw No collection time noted on specimen or requisition. The collection time recorded is the time of receipt in the lab. Performed By: #### 3 5200 #### [facility] [address] [place] [address], [facility] MCV (RBC) [Entitic vol] 82.9 fL Normal 82.0-98.0 [facility] Comment on above: Order Comment: No: D o not add to previous draw No collection time noted on specimen or requisition. The collection time recorded is the time of receipt in the lab. Performed By: #### 3 5200 #### [facility] [address] [place] [address], [facility] Monocytes (Bld) [#/Vol] 1.1 10*3/uL High 0.1-1.0 [facility] Comment on above: Order Comment: No: D o not add to previous draw No collection time noted on specimen or requisition. The collection time recorded is the time of receipt in the lab. Performed By: #### 3 5200 #### [facility] [address] [place] [address], [facility] MONOS 13.3 % High 5.0-12.0 [facility] Comment on above: Order Comment: No: D o not add to previous draw No collection time noted on specimen or requisition. The collection time recorded is the time of receipt in the lab. Performed By: #### 3 5200 #### [facility] [address] [place] [address], [facility] Neutrophils/100 WBC (Bld) 54.0 % Normal 40.0-72.0 [facility] Comment on above: Order Comment: No: D o not add to previous draw No collection time noted on specimen or requisition. The collection time recorded is the time of receipt in the lab. Performed By: #### 3 5200 #### [facility] [address] [place] [address], [facility] Nucleated RBC/100 WBC (Bld) [Ratio] 0 % Normal 0-0 [facility] Comment on above: Order Comment: No: D o not add to previous draw No collection time noted on specimen or requisition. The collection time recorded is the time of receipt in the lab. Performed By: #### 3 5200 #### [facility] [address] [place] [address], [facility] PLAT CNT 256 10*3/uL Normal 150-400 [facility] Comment on above: Order Comment: No: D o not add to previous draw No collection time noted on specimen or requisition. The collection time recorded is the time of receipt in the lab. Performed By: #### 3 5200 #### [facility] [address] [place] [address], [facility] RBC (Bld) [#/Vol] 4.26 10*6/uL Normal 3.80-5.00 [facility] Comment on above: Order Comment: No: D o not add to previous draw No collection time noted on specimen or requisition. The collection time recorded is the time of receipt in the lab. Performed By: #### 3 5200 #### [facility] [address] [place] [address], [facility] WBC (Bld) [#/Vol] 8.18 10*3/uL Normal 4.00-10.60 [facility] Comment on above: Order Comment: No: D o not add to previous draw No collection time noted on specimen or requisition. The collection time recorded is the time of receipt in the lab. Performed By: #### 3 5200 #### [facility] [address] [facility] [place] [address], [facility] MAGNESIUM BLOODon 06-30-2022 Magnesium [Mass/Vol] 1.8 mg/dL Low 1.9-2.7 [facility] Comment on above: Order Comment: No: D o not add to previous draw Performed By: #### 1 0070, 34941, 59812 #### [facility] [address] [place] [address], [facility] POC GLUCOSE LABon 06-30-2022 Glucose [Mass/Vol] 266 mg/dL High 70-100 [facility] Comment on above: Performed By: #### 8 5499 #### [facility] [address] [place] [address], [facility] Glucose [Mass/Vol] 346 mg/dL High 70-100 [facility] Comment on above: Performed By: #### 1 0070, 99683, 11118 #### [facility] [address] [place] [address], [facility] Glucose [Mass/Vol] 206 mg/dL High 70-100 [facility] Comment on above: Performed By: #### 1 0070, [id number], [id number] #### [facility] [address] [place] [address], [facility] TROPONIN-Ion 06-30-2022 Troponin I.cardiac [Mass/Vol] 1.03 ng/mL Critically high 0.00-0.04 [facility] Comment on above: Result Comment: M-SC EVIOUS CRITICAL RESULT REFERENCE RANGES: 0.00 - 0.04 ng/ml NORMAL 0.05 - 0.50 ng/ml INDETERMINATE > 0.50 ng/ml CONSISTENT WITH AN M.I. Performed By: #### 1 0070, [id number], [id number] #### [facility] [address] UFH HEPARIN ASSAYon 06-30-20 UNFRACTIONATED HEPARIN 0.70 IU/mL Normal 0.30-0.70 [facility] Comment on above: Result Comment: [place] roxaban and Apixaban will interfere with the anti Xa assay used to monitor UFH and LMWH. Performed By: #### 3 [id number] #### [facility] [address] UNFRACTIONATED HEPARIN 0.61 IU/mL Normal 0.30-0.70 [facility] Comment on above: Result Comment: [place] roxaban and Apixaban will interfere with the anti Xa assay used to monitor UFH and LMWH. Performed By: #### 8 [id number] #### [facility] [address] UNFRACTIONATED HEPARIN 0.85 IU/mL High 0.30-0.70 [facility] Comment on above: Result Comment: [place] roxaban and Apixaban will interfere with the anti Xa assay used to monitor UFH and LMWH. Performed By: #### 3 [id number] #### [facility] [address] CBC COMPLETE BLOOD COUNTon 0 06-29-2022 Erythrocyte distribution width (RBC) [Ratio] 13.4 % Normal 11.5-15.0 [facility] Comment on above: Order Comment: No: D o not add to previous draw Performed By: #### 8 [id number] #### [facility] [address] Hematocrit (Bld) [Volume fraction] 34.3 % Low 36.0-45.0 [facility] Comment on above: Order Comment: No: D o not add to previous draw Performed By: #### 8 [id number] #### [facility] [address] [place] [address], [facility] Hemoglobin (Bld) [Mass/Vol] 11.3 g/dL Low 12.0-15.0 [facility] Comment on above: Order Comment: No: D o not add to previous draw Performed By: #### 8 [id number] #### [facility] [address] [place] [address], [facility] MCH (RBC) [Entitic mass] 27.2 pg Normal 27.0-33.0 [facility] Comment on above: Order Comment: No: D o not add to previous draw Performed By: #### 8 [id number] #### [facility] [address] [facility] [place] [address], [facility] MCHC (RBC) [Mass/Vol] 32.9 g/dL Normal 32.0-35.0 [facility] Comment on above: Order Comment: No: D o not add to previous draw Performed By: #### 8 [id number] #### [facility] [address] [facility] [place] [address], [facility] MCV (RBC) [Entitic vol] 82.7 fL Normal 82.0-98.0 [facility] Comment on above: Order Comment: No: D o not add to previous draw Performed By: #### 8 [id number] #### [facility] [address] [facility] [place] [address], [facility] Nucleated RBC/100 WBC (Bld) [Ratio] 0 % Normal 0-0 [facility] Comment on above: Order Comment: No: D o not add to previous draw Performed By: #### 8 [id number] #### [facility] [address] [place] [address], [facility] PLAT CNT 234 10*3/uL Normal 150-400 [facility] Comment on above: Order Comment: No: D o not add to previous draw Performed By: #### 8 [id number] #### [facility] [address] [place] [address], [facility] RBC (Bld) [#/Vol] 4.15 10*6/uL Normal 3.80-5.00 [facility] Comment on above: Order Comment: No: D o not add to previous draw Performed By: #### 8 [id number] #### [facility] [address] [place] [address], [facility] WBC (Bld) [#/Vol] 7.28 10*3/uL Normal 4.00-10.60 [facility] Comment on above: Order Comment: No: D o not add to previous draw Performed By: #### 8 [id number] #### [facility] [address] [place] [id number], [facility] Erythrocyte distribution width (RBC) [Ratio] 13.3 % Normal 11.5-15.0 [facility] Comment on above: Order Comment: No: D o not add to previous draw No collection time noted on specimen or requisition. The collection time recorded is the time of receipt in the lab. Performed By: #### 3 [id number] #### [facility] [address] [place] [address], [facility] Hematocrit (Bld) [Volume fraction] 33.4 % Low 36.0-45.0 [facility] Comment on above: Order Comment: No: D o not add to previous draw No collection time noted on specimen or requisition. The collection time recorded is the time of receipt in the lab. Performed By: #### 3 [id number] #### [facility] [address] [place] [id number], [facility] Hemoglobin (Bld) [Mass/Vol] 10.8 g/dL Low 12.0-15.0 [facility] Comment on above: Order Comment: No: D o not add to previous draw No collection time noted on specimen or requisition. The collection time recorded is the time of receipt in the lab. Performed By: #### 3 [id number] #### [facility] [address] MCH (RBC) [Entitic mass] 26.8 pg Low 27.0-33.0 [facility] Comment on above: Order Comment: No: D o not add to previous draw No collection time noted on specimen or requisition. The collection time recorded is the time of receipt in the lab. Performed By: #### 3 [id number] #### [facility] [address] MCHC (RBC) [Mass/Vol] 32.3 g/dL Normal 32.0-35.0 [facility] Comment on above: Order Comment: No: D o not add to previous draw No collection time noted on specimen or requisition. The collection time recorded is the time of receipt in the lab. Performed By: #### 3 [id number] #### [facility] [address] MCV (RBC) [Entitic vol] 82.9 fL Normal 82.0-98.0 [facility] Comment on above: Order Comment: No: D o not add to previous draw No collection time noted on specimen or requisition. The collection time recorded is the time of receipt in the lab. Performed By: #### 3 [id number] #### [facility] [address] Nucleated RBC/100 WBC (Bld) [Ratio] 0 % Normal 0-0 [facility] Comment on above: Order Comment: No: D o not add to previous draw No collection time noted on specimen or requisition. The collection time recorded is the time of receipt in the lab. Performed By: #### 3 [id number] #### [address] PLAT CNT 227 10*3/uL Normal 150-400 [facility] Comment on above: Order Comment: No: D o not add to previous draw No collection time noted on specimen or requisition. The collection time recorded is the time of receipt in the lab. Performed By: #### 3 5200 #### [facility] [address] [place] [address], [facility] RBC (Bld) [#/Vol] 4.03 10*6/uL Normal 3.80-5.00 [facility] Comment on above: Order Comment: No: D o not add to previous draw No collection time noted on specimen or requisition. The collection time recorded is the time of receipt in the lab. Performed By: #### 3 [id number] #### [facility] [address] [place] [address], [facility] WBC (Bld) [#/Vol] 7.85 10*3/uL Normal 4.00-10.60 [facility] Comment on above: Order Comment: No: D o not add to previous draw No collection time noted on specimen or requisition. The collection time recorded is the time of receipt in the lab. Performed By: #### 3 [id number] #### [facility] [address] CBC W/DIFFon 06-29-2022 ABS IMM GRANS 0.0 10*3/uL Normal 0.0-0.2 [facility] Comment on above: Order Comment: No co llection time noted on specimen or requisition. The collection timerecorded is the time of receipt in the lab. Performed By: #### 8 [id number] #### [facility] [address] ABS NEUTROPHILS 5.2 10*3/uL Normal 1.6-7.6 [facility] Comment on above: Order Comment: No co llection time noted on specimen or requisition. The collection timerecorded is the time of receipt in the lab. Performed By: #### 8 [id number] #### [facility] [address] [place] [address], [facility] Basophils (Bld) [#/Vol] 0.0 10*3/uL Normal 0.0-0.2 [facility] Comment on above: Order Comment: No co llection time noted on specimen or requisition. The collection timerecorded is the time of receipt in the lab. Performed By: #### 8 [id number] #### [facility] [address] [place] [id number], [facility] Basophils/100 WBC (Bld) 0.5 % Normal 0.0-1.0 [facility] Comment on above: Order Comment: No co llection time noted on specimen or requisition. The collection timerecorded is the time of receipt in the lab. Performed By: #### 8 [id number] #### [facility] [address] [place] [id number], [facility] Eosinophils (Bld) [#/Vol] 0.1 10*3/uL Normal 0.0-0.5 [facility] Comment on above: Order Comment: No co llection time noted on specimen or requisition. The collection timerecorded is the time of receipt in the lab. Performed By: #### 8 [id number] #### [facility] [address] [place] [address], [facility] Eosinophils/100 WBC (Bld) 1.3 % Normal 0.0-6.0 [facility] Comment on above: Order Comment: No co llection time noted on specimen or requisition. The collection timerecorded is the time of receipt in the lab. Performed By: #### 8 [id number] #### [facility] [address] [place] [address], [facility] Erythrocyte distribution width (RBC) [Ratio] 13.3 % Normal 11.5-15.0 [facility] Comment on above: Order Comment: No co llection time noted on specimen or requisition. The collection timerecorded is the time of receipt in the lab. Performed By: #### 8 [id number] #### [facility] [address] [place] [id number], [facility] Hematocrit (Bld) [Volume fraction] 34.0 % Low 36.0-45.0 [facility] Comment on above: Order Comment: No co llection time noted on specimen or requisition. The collection timerecorded is the time of receipt in the lab. Performed By: #### 8 [id number] #### [facility] [address] [place] [address], [facility] Hemoglobin (Bld) [Mass/Vol] 11.4 g/dL Low 12.0-15.0 [facility] Comment on above: Order Comment: No co llection time noted on specimen or requisition. The collection timerecorded is the time of receipt in the lab. Performed By: #### 8 [id number] #### [facility] [address] IMMATURE GRANS 0.4 % Normal 0.0-1.0 [facility] Comment on above: Order Comment: No co llection time noted on specimen or requisition. The collection timerecorded is the time of receipt in the lab. Performed By: #### 8 [id number] #### [facility] [address] [place] [address], [facility] Lymphocytes (Bld) [#/Vol] 1.5 10*3/uL Normal 1.2-4.0 [facility] Comment on above: Order Comment: No co llection time noted on specimen or requisition. The collection timerecorded is the time of receipt in the lab. Performed By: #### 8 [id number] #### [facility] [address] [place] [address], [facility] Lymphocytes/100 WBC (Bld) 19.5 % Low 20.0-45.0 [facility] Comment on above: Order Comment: No co llection time noted on specimen or requisition. The collection timerecorded is the time of receipt in the lab. Performed By: #### 8 [id number] #### [facility] [address] [place] [address], [facility] MCH (RBC) [Entitic mass] 27.7 pg Normal 27.0-33.0 [facility] Comment on above: Order Comment: No co llection time noted on specimen or requisition. The collection timerecorded is the time of receipt in the lab. Performed By: #### 8 [id number] #### [facility] [address] MCHC (RBC) [Mass/Vol] 33.5 g/dL Normal 32.0-35.0 [facility] Comment on above: Order Comment: No co llection time noted on specimen or requisition. The collection timerecorded is the time of receipt in the lab. Performed By: #### 8 [id number] #### [facility] [address] MCV (RBC) [Entitic vol] 82.7 fL Normal 82.0-98.0 [facility] Comment on above: Order Comment: No co llection time noted on specimen or requisition. The collection timerecorded is the time of receipt in the lab. Performed By: #### 8 [id number] #### [facility] [address] Monocytes (Bld) [#/Vol] 1.0 10*3/uL Normal 0.1-1.0 [facility] Comment on above: Order Comment: No co llection time noted on specimen or requisition. The collection timerecorded is the time of receipt in the lab. Performed By: #### 8 [id number] #### [facility] [address] MONOS 12.5 % High 5.0-12.0 [facility] Comment on above: Order Comment: No co llection time noted on specimen or requisition. The collection timerecorded is the time of receipt in the lab. Performed By: #### 8 [id number] #### [facility] [address] Neutrophils/100 WBC (Bld) 65.8 % Normal 40.0-72.0 [facility] Comment on above: Order Comment: No co llection time noted on specimen or requisition. The collection timerecorded is the time of receipt in the lab. Performed By: #### 8 [id number] #### [facility] [address] Nucleated RBC/100 WBC (Bld) [Ratio] 0 % Normal 0-0 [facility] Comment on above: Order Comment: No co llection time noted on specimen or requisition. The collection timerecorded is the time of receipt in the lab. Performed By: #### 8 [id number] #### [facility] [address] [place] [address], [facility] PLAT CNT 235 10*3/uL Normal 150-400 [facility] Comment on above: Order Comment: No co llection time noted on specimen or requisition. The collection timerecorded is the time of receipt in the lab. Performed By: #### 8 [id number] #### [facility] [address] RBC (Bld) [#/Vol] 4.11 10*6/uL Normal 3.80-5.00 [facility] Comment on above: Order Comment: No co llection time noted on specimen or requisition. The collection timerecorded is the time of receipt in the lab. Performed By: #### 8 [id number] #### [facility] [address] WBC (Bld) [#/Vol] 7.91 10*3/uL Normal 4.00-10.60 [facility] Comment on above: Order Comment: No co llection time noted on specimen or requisition. The collection timerecorded is the time of receipt in the lab. Performed By: #### 8 [id number] #### [facility] [address] [place] [address], [facility] COMP METABOLIC PANELon 06-29 Albumin [Mass/Vol] 2.9 g/dL Low 3.5-5.7 [facility] Comment on above: Order Comment: No: D o not add to previous draw No collection time noted on specimen or requisition. The collection time recorded is the time of receipt in the lab. Performed By: #### 3 1791 #### [facility] [address] [place] [address], [facility] ALKALINE PHOSPH 88 IU/L Normal 34-104 [facility] Comment on above: Order Comment: No: D o not add to previous draw No collection time noted on specimen or requisition. The collection time recorded is the time of receipt in the lab. Performed By: #### 3 1791 #### [facility] [address] [place] [address], [facility] ALT [Catalytic activity/Vol] 21 U/L Normal 7-52 [facility] Comment on above: Order Comment: No: D o not add to previous draw No collection time noted on specimen or requisition. The collection time recorded is the time of receipt in the lab. Performed By: #### 3 1791 #### [facility] [address] [place] [address], [facility] AST [Catalytic activity/Vol] 27 U/L Normal 13-39 [facility] Comment on above: Order Comment: No: D o not add to previous draw No collection time noted on specimen or requisition. The collection time recorded is the time of receipt in the lab. Performed By: #### 3 1791 #### [facility] [address] [place] [address], [place] Bilirubin [Mass/Vol] 0.5 mg/dL Normal 0.3-1.0 [facility] Comment on above: Order Comment: No: D o not add to previous draw No collection time noted on specimen or requisition. The collection time recorded is the time of receipt in the lab. Performed By: #### 3 1791 #### [facility] [address] [place] [address], [facility] Calcium [Mass/Vol] 8.2 mg/dL Low 8.6-10.3 [facility] Comment on above: Order Comment: No: D o not add to previous draw No collection time noted on specimen or requisition. The collection time recorded is the time of receipt in the lab. Performed By: #### 3 1791 #### [facility] [address] [place] [address], [facility] Chloride [Moles/Vol] 101 mmol/L Normal 98-107 [facility] Comment on above: Order Comment: No: D o not add to previous draw No collection time noted on specimen or requisition. The collection time recorded is the time of receipt in the lab. Performed By: #### 3 1791 #### [facility] [address] [place] [address], [facility] CO2 [Moles/Vol] 22 mmol/L Normal 21-31 [facility] Comment on above: Order Comment: No: D o not add to previous draw No collection time noted on specimen or requisition. The collection time recorded is the time of receipt in the lab. Performed By: #### 3 1791 #### [facility] [address] [place] [address], [facility] Creatinine [Mass/Vol] 0.45 mg/dL Low 0.60-1.20 [facility] Comment on above: Order Comment: No: D o not add to previous draw No collection time noted on specimen or requisition. The collection time recorded is the time of receipt in the lab. Performed By: #### 3 1791 #### [facility] [address] [place] [address], [facility] GFR/1.73 sq M.predicted among non-blacks MDRD (S/P/Bld) [Vol rate/Area] mL/min/{1.73_m2} Normal >60 [facility] Comment on above: Order Comment: No: D o not add to previous draw No collection time noted on specimen or requisition. The collection time recorded is the time of receipt in the lab. Result Comment: [facility]'s estimated glomerular filtration rate (eGFR) will [...] individuals. Performed By: #### 3 1791 #### [facility] [address] [place] [address], [facility] Glucose [Mass/Vol] 278 mg/dL High 70-100 [facility] Comment on above: Order Comment: No: D o not add to previous draw No collection time noted on specimen or requisition. The collection time recorded is the time of receipt in the lab. Performed By: #### 3 1791 #### [facility] [address] [place] [address], [facility] Potassium [Moles/Vol] 3.8 mmol/L Normal 3.5-5.1 [facility] Comment on above: Order Comment: No: D o not add to previous draw No collection time noted on specimen or requisition. The collection time recorded is the time of receipt in the lab. Performed By: #### 3 1791 #### [facility] [address] [place] [address], [facility] Protein [Mass/Vol] 5.3 g/dL Low 6.0-8.3 [facility] Comment on above: Order Comment: No: D o not add to previous draw No collection time noted on specimen or requisition. The collection time recorded is the time of receipt in the lab. Performed By: #### 3 1791 #### [facility] [address] [place] [address], [facility] Sodium [Moles/Vol] 133 mmol/L Low 136-145 [facility] Comment on above: Order Comment: No: D o not add to previous draw No collection time noted on specimen or requisition. The collection time recorded is the time of receipt in the lab. Performed By: #### 3 1791 #### [address] Urea nitrogen [Mass/Vol] 19 mg/dL Normal 7-25 [facility] Comment on above: Order Comment: No: D o not add to previous draw No collection time noted on specimen or requisition. The collection time recorded is the time of receipt in the lab. Performed By: #### 3 1791 #### [address] CTA CHESTon 06-29-2022 CTA CHEST [facility] Department of Radiology [address] [place], [place] [id number] Patient Name: MARIMAR PATEL : 1955 Sex: F Age: Race: White Pt. Location: [facility] Patient Status: E Ordered Date: 2022 11:35:00 PM Completed Date: 2022 11:58 PM Requesting Provider: JACKIE LI Attending Provider: ROBB MORALES Report Copy To: Signs & Symptoms: Chest Pain History: See Comments Comments: Pulmonary Embolism Exam: CTA CHEST CTA CHEST 2022 11:58 PM CLINICAL INDICATIONS: [...] Approved by:Hill Tineo06/29/2022 12:40 AM. I, Shane Balwdin,have reviewed the image(s) and agree with the findings in this report. Electronically signed: Shane Baldwin. Transcribed by: [email or web address], User Resident: HILL RUSS Electronically Signed by: SHANE BALDWIN @ 06/29/2022 01:00 AM I personally read this/these film(s) with this resident Normal [facility] Comment on above: Order Comment: Pulmo nary Embolism HEMOGLOBIN A1Con 06-29-2022 Glucose [Moles/Vol] 111 mmol/L Normal [facility] Comment on above: Order Comment: No: D o not add to previous draw No collection time noted on specimen or requisition. The collection time recorded is the time of receipt in the lab. Performed By: #### 3 1791 #### [facility] [address] [place] [address], [facility] HbA1c (Bld) [Mass fraction] 5.5 % Normal 4.0-6.0 [facility] Comment on above: Order Comment: No: D o not add to previous draw No collection time noted on specimen or requisition. The collection time recorded is the time of receipt in the lab. Performed By: #### 3 1791 #### [facility] [address] [facility] [address], [facility] LIPID PROFILEon 06-29-2022 Cholesterol [Mass/Vol] 223 mg/dL High 120-200 [facility] Comment on above: Result Comment: CHOL ESTEROL REFERENCE RANGE: 20 YEARS AND OLDER CARDIOVASCULAR RISK Less than 200 mg/dl Low Risk 200 to 239 mg/dl Borderline Risk 240 mg/dl and greater High Risk Performed By: #### 3 1791 #### [facility] [address] [place] [address], [facility] Cholesterol in HDL [Mass/Vol] 28 mg/dL Normal 23-92 [facility] Comment on above: Result Comment: Slig ht variation in normal range could be due to gender and/or age. HDL CHOLESTEROL REFERENCE RANGE: 20 years and older Cardiovascular Risk > or =60 mg/dL Desirable 40 TO 59 mg/dL Low Risk <40 mg/dL High Risk Performed By: #### 3 1791 #### [facility] [address] [place] [address], [facility] Cholesterol in LDL [Mass/Vol] 138 mg/dL High 0-130 [facility] Comment on above: Result Comment: LDL IS A CALCULATION LDL IS ONLY VALID IF THE TRIG IS LESS THAN 400. Performed By: #### 3 1791 #### [facility] [address] [facility] [place] [address], [facility] Cholesterol.total/Vera sterol in HDL [Mass ratio] 8.0 {ratio} High .0-4.5 [facility] Comment on above: Performed By: #### 3 1791 #### [facility] [address] [place] [address], [facility] NON-HDL CHOLESTEROL 195 mg/dL Normal [facility] Comment on above: Performed By: #### 3 1791 #### [facility] [address] [place] [address], [facility] Triglyceride [Mass/Vol] 285 mg/dL High 40-149 T [facility] Comment on above: Result Comment: TRIG LYCERIDE REFERENCE RANGE: 20 YEARS AND OLDER CARDIOVASCULAR RISK LESS THAN 150 mg/dl LOW RISK 150 TO 199 mg/dl BORDERLINE RISK 200 mg/dl AND GREATER HIGH RISK Performed By: #### 3 1791 #### [facility] [address] [facility] [place] [address], [facility] VLDL CHOL 57 mg/dL High 0-40 [facility] Comment on above: Performed By: #### 3 1791 #### [facility] [address] [facility] [place] [address], [facility] POC GLUCOSE LABon 06-29-2022 Glucose [Mass/Vol] 190 mg/dL High 70-100 [facility] Comment on above: Performed By: #### 8 [id number] #### [facility] [address] [place] [address], [place] Glucose [Mass/Vol] 256 mg/dL High 70-100 [facility] Comment on above: Performed By: #### 8 [id number] #### [facility] [address] [place] [address], [place] Glucose [Mass/Vol] 444 mg/dL High 70-100 [facility] Comment on above: Performed By: #### 1 0070, 29982, 97979 #### [facility] [address] Glucose [Mass/Vol] 304 mg/dL High 70-100 [facility] Comment on above: Performed By: #### 1 0070, 13501, 60076 #### [facility] [address] POC SARS COV2 ANTIGEN NEGATI VEon 06-29-2022 POC SARS COV2 ANTIGEN NEG Negative Normal NEGATIVE [facility] Comment on above: Result Comment: Nega [...] antigen from SARS-CoV-2 in direct nasopharyngeal swab (MANAGER [employer]) specimens from individuals who are suspected of [...] Accreditation. Performed By: #### 8 [id number] #### [facility] [address] [place] [id number], [facility] TROPONIN-Ion 06-29-2022 Troponin I.cardiac [Mass/Vol] 1.52 ng/mL Critically high 0.00-0.04 [facility] Comment on above: Order Comment: No: D o not add to previous draw No collection time noted on specimen or requisition. The collection time recorded is the time of receipt in the lab. Result Comment: M-SC EVIOUS CRITICAL RESULT REFERENCE RANGES: 0.00 - 0.04 ng/ml NORMAL 0.05 - 0.50 ng/ml INDETERMINATE > 0.50 ng/ml CONSISTENT WITH AN M.I. Performed By: #### 3 5200 #### [facility] [address] Troponin I.cardiac [Mass/Vol] 1.77 ng/mL Critically high 0.00-0.04 [facility] Comment on above: Order Comment: No: [...] M.I. Performed By: #### 3 1791 #### [facility] [address] TSH3 WITH REFLEX FT4on 06-29 TSH 3RD GENERATION 1.96 uIU/mL Normal 0.34-5.60 [facility] Comment on above: Performed By: #### 3 1791 #### [facility] [address] [place] [address], [facility] UFH HEPARIN ASSAYon 06-29-20 22 UNFRACTIONATED HEPARIN 0.15 IU/mL Critically low 0.30-0.70 [facility] Comment on above: Result Comment: RESU LTS CHECKED AND CALLED. ACCURATELY READ BACK BY Isabela Shannon RN at 2220 PMW 06-29-22. Rivaroxaban and Apixaban will interfere with the anti Xa assay used to monitor UFH and LMWH. Performed By: #### 3 1791 #### [facility] [address] [place] [address], [facility] UNFRACTIONATED HEPARIN <0.10 Critically low 0.30-0.70 [facility] Comment on above: Result Comment: Resu lt checked and called. Accurately read back by JENNIFER WILLINGHAM RN @1404 06/29/22 Rivaroxaban and Apixaban will interfere with the anti Xa assay used to monitor UFH and LMWH. Performed By: #### 3 5200 #### [facility] [address] UNFRACTIONATED HEPARIN <0.10 Critically low 0.30-0.70 [facility] Comment on above: Result Comment: RESU LTS CHECKED AND CALLED. ACCURATELY READ BACK BY REG KILGORE RN @ 0531 Rivaroxaban and Apixaban will interfere with the anti Xa assay used to monitor UFH and LMWH. Performed By: #### 3 5200 #### [facility] [address] [facility] [address] APTTon 2022 aPTT Coag (Bld) [Time] 32.0 s Normal 25.0-35.0 [facility] Comment on above: Result Comment: ALL [...] PURPOSE. Performed By: #### 3 5200 #### [facility] [address] [place] [address], [facility] BNPon 2022 Natriuretic peptide B (Bld) [Mass/Vol] 3794.0 pg/mL Critically high <=900.0 [facility] Comment on above: Performed By: #### C BC #### [facility] [address] [place] [address] Dr. Sruthi Arechiga CARDIAC TONJA ADMITon 022 CK [Catalytic activity/Vol] 51 U/L Normal 26-192 [facility] Comment on above: Performed By: #### C BC #### [facility] [address] [place] [address] Dr. Sruthi Arechiga CK.MB [Mass/Vol] 2.23 ng/mL Normal <=3.60 [facility] Comment on above: Performed By: #### C BC #### [facility] [address] [place] [address] [address] Sruthi Arechiga HSTROP 705.8 pg/mL Critically high 4.0-51.3 [facility] Comment on above: Result Comment: CUT- OFF POINTS HAVE BEEN ESTABLISHED BASED ON THE FOURTH UNIVERSAL DEFINITIONS OF MYOCARDIAL INFARCTION. THE UPPER REFERENCE LIMIT (URL) OF TROPONIN, DEFINED THE 99TH PERCENTILE OF cTnI DISTRIBUTION IN A REFERENCE POPULATION, HAS BEEN CONFIRMED THE DECISION THRESHOLD FOR [place] DIAGNOSIS. Performed By: #### C BC #### [facility] [address] [place] [address] Dr. Sruthi Arechiga DIMITRY 73 ng/mL Normal 9-82 [facility] Comment on above: Performed By: #### C BC #### [facility] [address] [place] [address] Dr. Sruthi Arechiga CBC W MANUAL DIFFon 06-28-20 22 ATYPICAL LYMPH # Normal [facility] Comment on above: Performed By: #### C PITA ####[facility] [address] [place] [address]DrIndu Arechiga ATYPICAL LYMPH % Normal [facility] Comment on above: Performed By: #### C LIMAN ####[facility] [address] [place] [address]DrIndu Arechiga BAND # 0.1 103/ul Normal 0.0-0.3 [facility] Comment on above: Performed By: #### C BCMAN ####[facility] [address] [place] [address]DrIndu Arechiga BAND % 1 % Normal 0-5 [facility] Comment on above: Performed By: #### C BCMAN ####[facility] [address] [place] [address]DrIndu Arechiga BASOM # 0.00 103/ul Normal 0.00-0.10 [facility] Comment on above: Performed By: #### C BCMAN ####[facility] [address] [place] [id number]. Sruthi Arechiga BASOM % 0.0 % Critically low 0.2-2.0 [facility] Comment on above: Performed By: #### C BCJOSE ANGEL ####[facility] [address] [place] [id number]. Sruthi Arechiga BLAST # Normal [facility] Comment on above: Performed By: #### C BCJOSE ANGEL ####[facility] [address] [place] [id number]. Sruthi Arechiga BLAST % Normal [facility] Comment on above: Performed By: #### C PITA ####[facility] [address] [place] [address]Dr. Sruthi Arechiga CORRECTED WBC Normal 4.0-11.0 [facility] Comment on above: Performed By: #### C PITA ####[facility] [address] [place] [address]Dr. Sruthi Arechiga EOS # 0.13 103/ul Normal 0.00-0.70 [facility] Comment on above: Performed By: #### C PITA ####[facility] [address] [place] [address]Dr. Sruthi Arechiga EOS% 1.0 % Normal 0.9-7.0 [facility] Comment on above: Performed By: #### C PITA ####[facility] [address] [place] [address]Dr. Sruthi Arechiga HCT 38.8 % Normal 36.0-48.0 [facility] Comment on above: Performed By: #### C PITA ####[facility] [address] [place] [id number]. Sruthi Arechiga HGB 12.5 g/dl Normal 12.0-16.0 [facility] Comment on above: Performed By: #### C PITA ####[facility] [address] [place], [place] [address]Dr. Sruthi Arechiga LYMPHM # 1.51 103/ul Normal 1.20-3.80 [facility] Comment on above: Performed By: #### C PITA ####[facility] [address] [place], [place] [address]Xp. Sruthi Arechiga LYMPHM% 12.0 % Critically low 20.5-60.0 [facility] Comment on above: Performed By: #### C PITA ####[facility] [address] [place], [place] [address]Hq. Sruthi Arechiga MCH 27.2 pg Normal 26.7-34.0 [facility] Comment on above: Performed By: #### C PITA ####[facility] [address] [place] [id number]. Sruthi Arechiga MCHC 32.2 g/dl Normal 29.9-35.2 [facility] Comment on above: Performed By: #### C PITA ####[facility] [address] [place] [id number]. Sruthi Arechiga MCV 84.3 fL Normal 81.0-99.0 [facility] Comment on above: Performed By: #### C PITA ####[facility] [address] [place] [phone]. Sruthi Arechiga METAMYELOCYTE # Normal [facility] Comment on above: Performed By: #### C PITA ####[facility] [address] [place] [phone]. Sruthi Arechiga METAMYELOCYTE % Normal [facility] Comment on above: Performed By: #### C PITA ####[facility] [address] [place] [phone]. Sruthi Arechiga MONOM# 1.64 103/ul Critically high 0.30-0.80 [facility] Comment on above: Performed By: #### C PITA ####[facility] [address] [place] [id number]. Sruthi Arechiga MONOM% 13.0 % Critically high 1.7-12.0 [facility] Comment on above: Performed By: #### C PITA ####[facility] [address] [place] [phone]. Sruthi Arechiga MPV 11.7 fL Normal 9.5-13.5 [facility] Comment on above: Performed By: #### C PITA ####[facility] [address] [place] [phone]. Sruthi Arechiga MYELOCYTE # Normal [facility] Comment on above: Performed By: #### C PITA ####[facility] [address] [place] [phone]. Sruthi Arechiga MYELOCYTE % Normal [facility] Comment on above: Performed By: #### C PITA ####[facility] [address] [place] [phone]. Sruthi Arechiga NRBC Normal [facility] Comment on above: Performed By: #### C PITA ####[facility] [address] [place] [phone]. Sruthi Arechiga PLT 237 103/ul Normal 150-450 [facility] Comment on above: Performed By: #### C PITA ####[facility] [address] [place] [phone]. Sruthi Arechiga RBC 4.60 106/ul Normal 4.20-5.40 [facility] Comment on above: Performed By: #### Uvaldo LEMA ####[facility] [address] [place] [phone]. Sruthi Arechiga RDW 13.2 % Normal 11.0-15.0 [facility] Comment on above: Performed By: #### C PITA ####[facility] [address] [place] [phone]. Sruthi Arechiga SEG # 9.20 103/ul Critically high 1.40-6.50 [facility] Comment on above: Performed By: #### Uvaldo LEMA ####[facility] [address] [place] [phone]. Sruthi Arechiga SEG % 73.0 % Normal 43.0-75.0 [facility] Comment on above: Performed By: #### Uvaldo LEMA ####[facility] [address] [place] [phone] Arechiga WBC 12.6 103/ul Critically high 4.0-11.0 [facility] Comment on above: Performed By: #### C BCCHICAGO ####[facility] [address] [place], [place] [address]YhIndu Arechiga [facility]10 SARS-CoV-2 (COVID-19) RNA KOLE+probe Ql (Unsp spec) Not detected Normal NOT DETECTED [facility] Comment on above: Result Comment: When [...] for this test is supported by the [place] of Health and Human Service's declaration that [...] be used). Performed By: #### C VDTB ####[facility] [address] [place], [place] [address]VrDr. Sruthi Arechiga LIPASEon 2022 Lipase [Catalytic activity/Vol] 75.0 U/L Normal 73.0-393.0 [facility] Comment on above: Performed By: #### C BC #### [facility] [address] [place] [address] [address] Sruthi Arechiga POINT OF CARE GLUCOSEon 06-10 Glucose [Mass/Vol] 351 mg/dL Critically high 74-106 [facility] Comment on above: Performed By: #### C VDTB #### [facility] [address] [place] [address] [address] Sruthi Arechiga PROF 14(COMP METB)on 022 Albumin [Mass/Vol] 2.5 g/dL Critically low 3.4-5.[address] [facility] Comment on above: Performed By: #### C MP #### [facility] [address] [place] [address] Dr. Sruthi Arechiga Albumin/Globulin [Mass ratio] 0.6 {ratio} Normal [facility] Comment on above: Performed By: #### C MP #### [facility] [address] [place] [address] Dr. Sruthi Arechiga ALP [Catalytic activity/Vol] 132 U/L Critically high 46-116 [facility] Comment on above: Performed By: #### C MP #### [facility] [address] [place] [address] Dr. Sruthi Arechiga ALT [Catalytic activity/Vol] 32 U/L Normal 14-59 [facility] Comment on above: Performed By: #### C MP #### [facility] [address] [place] [address] Dr. Sruthi Arechiga Anion gap [Moles/Vol] 19.2 mmol/L Normal [facility] Comment on above: Performed By: #### C MP #### [facility] [address] [place] [address] Dr. Sruthi Arechiga AST [Catalytic activity/Vol] 24 U/L Normal 15-37 [facility] Comment on above: Performed By: #### C MP #### [facility] [address] [place] [address] Dr. Sruthi Arechiga Bilirubin [Mass/Vol] 0.5 mg/dL Normal 0.2-1.0 [facility] Comment on above: Performed By: #### C MP #### [facility] [address] [place] [address] Dr. Sruthi Arechiga Calcium [Mass/Vol] 9.5 mg/dL Normal 8.5-10.1 [facility] Comment on above: Performed By: #### C MP #### [facility] [address] [place] [address] Dr. Sruthi Arechiga Chloride [Moles/Vol] 95 mmol/L Critically low 98-107 [facility] Comment on above: Performed By: #### C MP #### [facility] [address] [place] [address] [address] Sruthi Arechiga CO2 [Moles/Vol] 20.3 mmol/L Critically low 21.0-32.0 [facility] Comment on above: Performed By: #### C MP #### [facility] [address] [place] [address] [address] Sruthi Arechiga Creatinine [Mass/Vol] 0.78 mg/dL Normal 0.55-1.02 [facility] Comment on above: Performed By: #### C MP #### [facility] [address] [place] [address] Dr. Sruthi Arechiga EGFR-AF SWAZI >60 Normal >=60 [facility] Comment on above: Performed By: #### C MP #### [facility] [address] [place] [address] [address] Sruthi Arechiga EGFR-NON AF SWAZI >60 Normal >=60 [facility] Comment on above: Performed By: #### C MP #### [facility] [address] [place] [address] [address] Sruthi Arechiga Globulin (S) [Mass/Vol] 4.3 g/dL Normal [facility] Comment on above: Performed By: #### C MP #### [facility] [address] [place] [address] [address] Sruthi Aerchiga Glucose [Mass/Vol] 389 mg/dL Critically high 74-106 [facility] Comment on above: Performed By: #### C MP #### [facility] [address] [place] [address] [address] Sruthi Arechiga Potassium [Moles/Vol] 3.5 mmol/L Normal 3.5-5.1 [facility] Comment on above: Performed By: #### C MP #### [facility] [address] [place] [address] [address] Sruthi Arechiga Protein [Mass/Vol] 6.8 g/dL Normal 6.4-8.2 [facility] Comment on above: Performed By: #### C MP #### [facility] [address] [place] [address] [address] Sruthi Arechiga Sodium [Moles/Vol] 131 mmol/L Critically low 136-145 [facility] Comment on above: Performed By: #### C MP #### [facility] [address] [place] [address] [address] Sruthi Arechiga Urea nitrogen [Mass/Vol] 24.0 mg/dL Critically high 7.0-18.0 [facility] Comment on above: Performed By: #### C MP #### [facility] [address] [place] [address] [address] Sruthi Arechiga Urea nitrogen/Creatinine [Mass ratio] 30.8 mg/mg Normal [facility] Comment on above: Performed By: #### C MP #### [facility] [address] [place] [address] [address] Sruthi Arechiga PROTHROMBIN TIMEon 2 INR Coag (PPP) [Relative time] 1.01 {INR} Normal 0.91-1.16 [facility] Comment on above: Result Comment: ACCC P RECOMMENDED INR FOR WARFARIN THERAPY ------- CONDITION INR PROPHYLAXIS OF VENOUS THROMBOSIS 2-3 (HIGH-RISK SURGERY) TREATMENT OF VENOUS THROMBOSIS 2-3 TREATMENT OF PULMONARY EMBOLISM 2-3 PREVENTION OF SYSTEMIC EMBOLISM: 2-3 ACUTE MYOCARDIAL INFARCTION TISSUE HEART VALVES VALVULAR HEART DISEASE ATRIAL FIBRILLATION RECURRENT SYSTEMIC EMBOLISM MECHANICAL HEART VALVE 2.5-3.5 FROM: ORAL ANTICOAGULANTS. MECHANISM OF ACTION, CLINICAL EFFECTIVENESS, AND OPTIMAL THERAPEUTIC RANGE. CHEST 1995;108:231S-246S. Performed By: #### 3 5200 #### [facility] [address] [place] [address], [facility] PT Coag (PPP) [Time] 13.3 s Normal 12.3-14.8 [facility] Comment on above: Result Comment: ALL RESULTS MUST BE INTERPRETED WITH RESPECT TO BLOOD DRAWING ARTIFACT OR DILUTION ERROR OF ANTICOAGULANT AT THE TIME OF SAMPLING. Performed By: #### 3 5200 #### [facility] [address] [place] [address], [facility] PROTIMEon 2022 INR Coag (PPP) [Relative time] 0.98 {INR} Normal [facility] Comment on above: Performed By: #### C VDTBH #### [facility] [address] [place] [address] Dr. Sruthi Arechiga INR GUIDELINES SEE BELOW Normal [facility] Comment on above: Result Comment: JESSICA RED INR: 2.0 - 3.0 CONDITIONS NOT LISTED BELOW 2.5 - 3.5 FOR PROSTHETIC HEART VALVE REPLACEMENT 2.5 - 3.5 RECURRENT THROMBOSIS Performed By: #### C VDTBH #### [facility] [address] [place] [address] [address] Sruthi Arechiga PT Coag (PPP) [Time] 10.6 s Normal 9.0-11.6 [facility] Comment on above: Performed By: #### C VDTBH #### [facility] [address] [place] [address] [address] Sruthi Arechiga PTTon 2022 aPTT Coag (Bld) [Time] 32.5 s Normal 22.3-36.[address] [facility] Comment on above: Performed By: #### C VDTBH #### [facility] [address] [place] [address] Dr. Sruthi Arechiga TROPONIN, HIGH SENSITIVITYon 2022 HSTROP 4940.1 pg/mL Critically high 4.0-51.3 [facility] Comment on above: Result Comment: CUT- OFF POINTS HAVE BEEN ESTABLISHED BASED ON THE FOURTH UNIVERSAL DEFINITIONS OF MYOCARDIAL INFARCTION. THE UPPER REFERENCE LIMIT (URL) OF TROPONIN, DEFINED THE 99TH PERCENTILE OF cTnI DISTRIBUTION IN A REFERENCE POPULATION, HAS BEEN CONFIRMED THE DECISION THRESHOLD FOR TN DIAGNOSIS. Performed By: #### H STROPN #### [facility] [address] [place], [place] [address] Dr. Sruthi Arechiga HSTROP 1816.7 pg/mL Critically high 4.0-51.3 [facility] Comment on above: Result Comment: CUT- OFF POINTS HAVE BEEN ESTABLISHED BASED ON THE FOURTH UNIVERSAL DEFINITIONS OF MYOCARDIAL INFARCTION. THE UPPER REFERENCE LIMIT (URL) OF TROPONIN, DEFINED THE 99TH PERCENTILE OF cTnI DISTRIBUTION IN A REFERENCE POPULATION, HAS BEEN CONFIRMED THE DECISION THRESHOLD FOR TN DIAGNOSIS. Performed By: #### C BC #### [facility] [address] [place], [place] [address] Dr. Sruthi Arechiga TSHon 2022 TSH 3.865 uIU/mL Critically high 0.358-3.740 [facility] Comment on above: Performed By: #### T SH, LIPA, BNP, CMADM ####[facility] [address] [place], [place] [address]JrDr. Sruthi Arechiga UFH HEPARIN ASSAYon 06-28-20 22 UNFRACTIONATED HEPARIN <0.10 Critically low 0.30-0.70 [facility] Comment on above: Order Comment: No: [...] LMWH. Performed By: #### 3 5200 #### [facility] [address] [place] [address], [facility] XR CHEST 1 Von 2022 XR CHEST [...] by: GERMAIN COY Date: 2022 06:58 Normal [facility] Vital Signs Date Time Vital Sign Value Performing Clinician Facility 02-16-2025 12:00-0400 Diastolic blood pressure 67 mm[Hg] Nik Bell II Work Phone: [facility] 02-16-2025 12:00-0400 Heart rate 67 /min Nik Bell II Work Phone: [facility] 02-16-2025 12:00-0400 Respiratory rate 16 /min Nik Bell II Work Phone: [facility] 02-16-2025 12:00-0400 SaO2% (BldA) [Mass fraction] 93 % Nik Bell II Work Phone: [facility] 02-16-2025 12:00-0400 Systolic blood pressure 130 mm[Hg] Nik Bell II Work Phone: [facility] 02-16-2025 11:49-0400 Body height 157.48 cm Nik Bell II Work Phone: [facility] 02-16-2025 07:53-0400 Body temperature 98 [degF] Nik Bell II Work Phone: [facility] 02-16-2025 06:00-0400 Body weight 81.7 kg Nikevelyne Bell II Work Phone: [facility] 02-15-2025 20:16-0400 Diastolic blood pressure 58 mm[Hg] Nik Bell II Work Phone: [facility] 02-15-2025 20:16-0400 Heart rate 56 /min Nik Bell II Work Phone: [facility] 02-15-2025 20:16-0400 Respiratory rate 16 /min Nik Bell II Work Phone: [facility] 02-15-2025 20:16-0400 SaO2% (BldA) [Mass fraction] 93 % Nik Bell II Work Phone: [facility] 02-15-2025 20:16-0400 Systolic blood pressure 136 mm[Hg] Nik Bell II Work Phone: [facility] 02-15-2025 13:36-0400 Body height 157.48 cm Nik Bell II Work Phone: [facility] 02-15-2025 13:36-0400 Body temperature 97.5 [degF] Nik Bell II Work Phone: [facility] 02-15-2025 13:36-0400 Body weight 82.2 kg Nik Bell II Work Phone: [facility] 01-05-2025 13:49-0500 Diastolic blood pressure 84 mm[Hg] Trace Ramírez MD, PhD [facility] 01-05-2025 13:49-0500 Systolic blood pressure 124 mm[Hg] Trace Ramírez MD, PhD [facility] 12-30-2024 13:19-0500 Body height 157.5 cm Johnna Cedeño MANAGER [employer]OURCE Work Phone: [facility] 12-30-2024 13:19-0500 Body mass index (BMI) [Ratio] 32.15 kg/m2 Johnna Cedeño MANAGER RESOURCE Work Phone: [facility] 12-30-2024 13:19-0500 Body weight 79.74 kg Johnna Cedeño MANAGER [employer]OURCE Work Phone: [facility] 12-30-2024 13:19-0500 Diastolic blood pressure 68 mm[Hg] Johnna Cedeño MANAGER RESOURCE Work Phone: [facility] 12-30-2024 13:19-0500 Heart rate 65 /min Johnna Cedeño MANAGER [employer]OURCE Work Phone: [facility] 12-30-2024 13:19-0500 Respiratory rate 16 /min Johnna Cedeño MANAGER [employer]OURCE Work Phone: [facility] 12-30-2024 13:19-0500 SaO2% (BldA) [Mass fraction] 95 % Johnna Cedeño MANAGER RESOURCE Work Phone: [facility] 12-30-2024 13:19-0500 Systolic blood pressure 136 mm[Hg] Johnna Cedeño MANAGER [employer]OURCE Work Phone: [facility] 12-30-2024 10:57-0500 Body height 157.5 cm Alexis Brown DPM Work Phone: [facility] 12-30-2024 10:57-0500 Body mass index (BMI) [Ratio] 31.46 kg/m2 Alexis Brown DPM Work Phone: [facility] 12-30-2024 10:57-0500 Body weight 78.02 kg Alexis Brown DPM Work Phone: [facility] 12-30-2024 10:57-0500 Respiratory rate 18 /min Alexis Brown DPM Work Phone: [facility] 12-09-2024 09:25-0500 Body height 157.5 cm Alexis Brown DPM Work Phone: [facility] 12-09-2024 09:25-0500 Body mass index (BMI) [Ratio] 31.46 kg/m2 Alexis Brown DPM Work Phone: [facility] 12-09-2024 09:25-0500 Body weight 78.02 kg Alexis Brown DPM Work Phone: [facility] 12-09-2024 09:25-0500 Respiratory rate 18 /min Alexis Brown DPM Work Phone: [facility] 10-21-2024 12:01-0500 Diastolic blood pressure 53 mm[Hg] Trace Ramírez MD, PhD [facility] 10-21-2024 12:01-0500 Systolic blood pressure 134 mm[Hg] Trace Ramírez MD, PhD [facility] 09-30-2024 09:46-0500 Body height 157.5 cm Manjula CUEVAS Work Phone: [facility] 09-30-2024 09:46-0500 Body mass index (BMI) [Ratio] 31.57 kg/m2 Manjula Hemmer PA Work Phone: [facility] 09-30-2024 09:46-0500 Body temperature 97.59 [degF] Manjula Hemmer PA Work Phone: [facility] 09-30-2024 09:46-0500 Body weight 78.29 kg Manjula Hemmer PA Work Phone: [facility] 09-30-2024 09:46-0500 Diastolic blood pressure 48 mm[Hg] Manjula Hemmer PA Work Phone: [facility] 09-30-2024 09:46-0500 Heart rate 78 /min Manjula Hemmer PA Work Phone: [facility] 09-30-2024 09:46-0500 Respiratory rate 16 /min Manjula Hemmer PA Work Phone: [facility] 09-30-2024 09:46-0500 SaO2% (BldA) [Mass fraction] 97 % Manjula Hemmer PA Work Phone: [facility] 09-30-2024 09:46-0500 Systolic blood pressure 108 mm[Hg] Manjula Hemmer PA Work Phone: [facility] 09-30-2024 09:21-0500 Body height 157.5 cm Alexis Gilmore DPM Work Phone: [facility] 09-30-2024 09:21-0500 Body mass index (BMI) [Ratio] 31.28 kg/m2 Alexis Gilmore DPM Work Phone: [facility] 09-30-2024 09:21-0500 Body weight 77.56 kg Alexis Gilmore DPM Work Phone: [facility] 09-30-2024 09:21-0500 Respiratory rate 18 /min Alexis Gilmore DPM Work Phone: [facility] 09-22-2024 09:33-0500 Body height 157.5 cm Johnna Cedeño MANAGER RESOURCE Work Phone: [facility] 09-22-2024 09:33-0500 Body mass index (BMI) [Ratio] 31.28 kg/m2 Johnna Cedeño MANAGER RESOURCE Work Phone: [facility] 09-22-2024 09:33-0500 Body weight 77.56 kg Johnna Leaf MANAGER RESOURCE Work Phone: [facility] 09-22-2024 09:33-0500 Diastolic blood pressure 68 mm[Hg] Johnna Gala MANAGER RESOURCE Work Phone: [facility] 09-22-2024 09:33-0500 Heart rate 72 /min Johnna Cedeño MANAGER RESOURCE Work Phone: [facility] 09-22-2024 09:33-0500 SaO2% (BldA) [Mass fraction] 96 % Johnna Gala MANAGER RESOURCE Work Phone: [facility] 09-22-2024 09:33-0500 Systolic blood pressure 158 mm[Hg] Johnna Cedeño MANAGER RESOURCE Work Phone: [facility] 07-20-2024 16:14-0400 Diastolic blood pressure 80 mm[Hg] Micheal Nova SERVICE OFFICER-WARD AIDE Work Phone: [facility] 07-20-2024 16:14-0400 Systolic blood pressure 171 mm[Hg] Micheal Priceuria SERVICE OFFICER-WARD AIDE Work Phone: [facility] 07-20-2024 16:10-0400 Body height 157.5 cm Micheal Priceuria SERVICE OFFICER-WARD AIDE Work Phone: [facility] 07-20-2024 16:10-0400 Body mass index (BMI) [Ratio] 29.63 kg/m2 Micheal Priceuria SERVICE OFFICER-WARD AIDE Work Phone: [facility] 07-20-2024 16:10-0400 Body weight 73.48 kg Micheal Priceuria SERVICE OFFICER-WARD AIDE Work Phone: [facility] 07-20-2024 16:10-0400 Heart rate 76 /min Mahadr Nir SERVICE OFFICER-WARD AIDE Work Phone: [facility] 07-20-2024 16:10-0400 Respiratory rate 18 /min Mahadr Nir SERVICE OFFICER-WARD AIDE Work Phone: [facility] 07-09-2024 11:52-0400 Body height 157.5 cm Alexis Gilmore DPM Work Phone: [facility] 07-09-2024 11:52-0400 Body mass index (BMI) [Ratio] 29.45 kg/m2 Alexis Gilmore DPM Work Phone: [facility] 07-09-2024 11:52-0400 Body weight 73.03 kg Alexis Gilmore DPM Work Phone: [facility] 07-09-2024 11:52-0400 Diastolic blood pressure 75 mm[Hg] Alexis Gilmore DPM Work Phone: [facility] 07-09-2024 11:52-0400 Heart rate 78 /min Alexis Gilmore DPM Work Phone: [facility] 07-09-2024 11:52-0400 Systolic blood pressure 128 mm[Hg] Alexis Gilmore DPM Work Phone: [facility] 06-30-2024 14:17-0400 Diastolic blood pressure 52 mm[Hg] Trace Ramírez MD, PhD [facility] 06-30-2024 14:17-0400 Systolic blood pressure 134 mm[Hg] Trace Ramírez MD, PhD [facility] 06-22-2024 07:49-0400 Body temperature 97.9 [degF] Nely Curry MD Work Phone: [facility] 06-22-2024 07:49-0400 Diastolic blood pressure 44 mm[Hg] Nely Curry MD Work Phone: [facility] 06-22-2024 07:49-0400 Heart rate 76 /min Nely Curry MD Work Phone: [facility] 06-22-2024 07:49-0400 Respiratory rate 19 /min Nely Curry MD Work Phone: [facility] 06-22-2024 07:49-0400 SaO2% (BldA) [Mass fraction] 91 % Nely Curry MD Work Phone: [facility] 06-22-2024 07:49-0400 Systolic blood pressure 130 mm[Hg] Nely Curry MD Work Phone: [facility] 06-21-2024 17:12-0400 Body height 157.5 cm Nely Curry MD Work Phone: [facility] 06-21-2024 17:12-0400 Body mass index (BMI) [Ratio] 29.26 kg/m2 Nely Curry MD Work Phone: [facility] 06-21-2024 17:12-0400 Body weight 72.58 kg Nely Curry MD Work Phone: [facility] 06-15-2024 15:12-0400 Body height 157.5 cm Margareth Shishehbor DO Work Phone: [facility] 06-15-2024 15:12-0400 Body mass index (BMI) [Ratio] 30.18 kg/m2 Margareth Shishehbor DO Work Phone: [facility] 06-15-2024 15:12-0400 Body weight 74.84 kg Margareth Shishehbor DO Work Phone: [facility] 06-15-2024 15:12-0400 Diastolic blood pressure 70 mm[Hg] Margareth Shishehbor DO Work Phone: [facility] 06-15-2024 15:12-0400 Heart rate 91 /min Margareth Shishehbor DO Work Phone: [facility] 06-15-2024 15:12-0400 Systolic blood pressure 193 mm[Hg] Margareth Escamilla DO Work Phone: [facility] 05-19-2024 12:35-0400 Diastolic blood pressure 56 mm[Hg] II Nik Bell Work Phone: [facility] 05-19-2024 12:35-0400 Heart rate 64 /min II Nik Bell Work Phone: [facility] 05-19-2024 12:35-0400 Respiratory rate 16 /min II Nik Bell Work Phone: [facility] 05-19-2024 12:35-0400 SaO2% (BldA) [Mass fraction] 96 % II Nik Bell Work Phone: [facility] 05-19-2024 12:35-0400 Systolic blood pressure 142 mm[Hg] II Nik Bell Work Phone: [facility] 05-19-2024 10:00-0400 Inhaled oxygen flow rate 2 L/min II Nik Bell Work Phone: [facility] 05-19-2024 08:33-0400 Body height 157.48 cm II Nik Bell Work Phone: [facility] 05-19-2024 08:33-0400 Body weight 74.84 kg II Nik Bell Work Phone: [facility] 05-18-2024 10:46-0400 Body height 157.48 cm II Nik Bell Work Phone: [facility] 05-18-2024 10:46-0400 Body mass index (BMI) [Ratio] 29.6 kg/m2 II Nik Bell Work Phone: [facility] 05-18-2024 10:46-0400 Body temperature 95.6 [degF] II Nik Bell Work Phone: [facility] 05-18-2024 10:46-0400 Body weight 73.48 kg II Nik Bell Work Phone: [facility] 05-18-2024 10:46-0400 Diastolic blood pressure 60 mm[Hg] II Nik Bell Work Phone: [facility] 05-18-2024 10:46-0400 Heart rate 63 /min II Nik Bell Work Phone: [facility] 05-18-2024 10:46-0400 SaO2% (BldA) [Mass fraction] 96 % II Nik Bell Work Phone: [facility] 05-18-2024 10:46-0400 Systolic blood pressure 142 mm[Hg] II Nik Bell Work Phone: [facility] 12-11-2023 16:15-0500 Body height 157.5 cm Alexis Gilmore DPM Work Phone: [facility] 12-11-2023 16:15-0500 Body mass index (BMI) [Ratio] 29.26 kg/m2 Alexis Gilmore DPM Work Phone: [facility] 12-11-2023 16:15-0500 Body weight 72.58 kg Alexis Gilmore DPM Work Phone: [facility] 12-11-2023 16:15-0500 Diastolic blood pressure 80 mm[Hg] Alexis Gilmore DPM Work Phone: [facility] 12-11-2023 16:15-0500 Heart rate 77 /min Alexis Gilmore DPM Work Phone: [facility] 12-11-2023 16:15-0500 Systolic blood pressure 130 mm[Hg] Alexis Gilmore DPM Work Phone: [facility] 02-19-2023 10:30-0400 Body height 157.48 cm Sabrina Borden Other [employer] Other 02-19-2023 10:30-0400 Body mass index (BMI) [Ratio] 28.35 kg/m2 Sabrina Borden Other [employer] Other 02-19-2023 10:30-0400 Body temperature 97.8 [degF] Sabrina Borden Other [employer] Other 02-19-2023 10:30-0400 Body weight 70.31 kg Sabrina Borden Other [employer] Other 02-19-2023 10:30-0400 Diastolic blood pressure 64 mm[Hg] Sabrina Borden Other [employer] Other 02-19-2023 10:30-0400 SaO2% (BldA) [Mass fraction] 95 % Sabrina Borden Other [employer] Other 02-19-2023 10:30-0400 Systolic blood pressure 112 mm[Hg] Sabrina Borden Other [employer] Other 01-13-2023 16:30-0500 Diastolic blood pressure 57 mm[Hg] II Nik Bell Work Phone: [facility] 01-13-2023 16:30-0500 Heart rate 63 /min II Nik Bell Work Phone: [facility] 01-13-2023 16:30-0500 Respiratory rate 16 /min II Nik Bell Work Phone: [facility] 01-13-2023 16:30-0500 SaO2% (BldA) [Mass fraction] 95 % II Nik Bell Work Phone: [facility] 01-13-2023 16:30-0500 Systolic blood pressure 123 mm[Hg] II Nik Bell Work Phone: [facility] 01-13-2023 14:00-0500 Inhaled oxygen flow rate 2 L/min II Nik Bell Work Phone: [facility] 01-13-2023 11:42-0500 Body height 157.48 cm II Nik Bell Work Phone: [facility] 01-13-2023 11:42-0500 Body weight 68.49 kg II Nik Bell Work Phone: [facility] 01-09-2023 08:30-0500 Body height 157.48 cm Geo Mathew Other [employer] Other 01-09-2023 08:30-0500 Body mass index (BMI) [Ratio] 28.35 kg/m2 Geo Mathew Other [employer] Other 01-09-2023 08:30-0500 Body temperature 97.8 [degF] Geo Mathew Other [employer] Other 01-09-2023 08:30-0500 Body weight 70.31 kg Geo Mathew Other [employer] Other 01-09-2023 08:30-0500 Diastolic blood pressure 68 mm[Hg] Geo Mathew Other [employer] Other 01-09-2023 08:30-0500 SaO2% (BldA) [Mass fraction] 95 % Geo Mathew Other [employer] Other 01-09-2023 08:30-0500 Systolic blood pressure 112 mm[Hg] Geo Mathew Other [employer] Other 09-20-2021 13:00-0500 Body height 157.48 cm Geo Mathew Other [employer] Other 09-20-2021 13:00-0500 Body mass index (BMI) [Ratio] 31.09 kg/m2 Geo Wisdomimelda Other [employer] Other 09-20-2021 13:00-0500 Body weight 77.11 kg Geo Priyanka Other [employer] Other 09-20-2021 13:00-0500 Diastolic blood pressure 69 mm[Hg] Geo Wisdomimelda Other [employer] Other 09-20-2021 13:00-0500 Systolic blood pressure 158 mm[Hg] Geo Wisdomimelda Other [employer] Other Encounters Encounter Date Encounter Type Care Provider Facility Start: 02-15-2025 End: 02-16-2025 ambulatory Edvin Casper Facility:[facility] Start: 02-15-2025 End: 02-16-2025 Evaluation and management of inpatient Nik Bell II Work Phone: [facility] [place] [facility] Work Phone: Start: 02-15-2025 End: 02-16-2025 observation encounter Nik Bell II Work Phone: [facility] Work Phone: Start: 02-15-2025 End: 02-15-2025 Bamboo flowsheet Teena Delcid DO Work Phone: [facility] Start: 02-15-2025 End: 02-15-2025 Bamboo flowsheet Teena Delcid DO Work Phone: [facility] Start: 02-15-2025 End: 02-15-2025 ambulatory TEENA DELCID Not Available Start: 02-03-2025 End: 02-03-2025 Jamin Bell MD Work Phone: [facility] Comment on above: Type 2 diabetes emelia itus with hyperglycemia, with long-term current use of insulin (CMS/HCC) Start: 01-05-2025 End: 01-05-2025 Trace Ramírez Work Phone: [facility] Start: 01-05-2025 ambulatory Trace Ramírez [facility] Start: 12-30-2024 End: 12-30-2024 Bamboo flowsheet Alexis Gilmore DPM Work Phone: [facility] Start: 12-30-2024 End: 12-30-2024 Bamboo flowsheet Alexis Gilmore DPM Work Phone: [facility] Start: 12-30-2024 End: 12-30-2024 Office outpatient visit 25 minutes Johnna Cedeño MANAGER RESOURCE Work Phone: [facility] Comment on above: Paroxysmal atrial fi brillation (CMS/HCC) (Primary Dx); Benign essential hypertension (CMS/[facility]); Type 2 diabetes mellitus with hyperglycemia, with long-term current use of insulin (CMS/HCC); 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 (CMS/[facility]); S/P CABG x 4; Encounter for screening mammogram for malignant neoplasm of breast; Type 2 diabetes mellitus with foot ulcer (CODE) (CMS/HCC); Non-pressure chronic ulcer of other part of left foot with fat layer exposed (CMS/HCC) Start: 12-30-2024 End: 12-30-2024 ambulatory JOHNNA CEDEÑO Not Available Start: 12-30-2024 End: 12-30-2024 Office outpatient visit 15 minutes Alexis Gilmore DPM Work Phone: [facility] Comment on above: Heel spur, right (Pr imary Dx); Achilles tendinitis, right leg; Contracture of right ankle Start: 12-30-2024 End: 12-30-2024 ambulatory ALEXIS GILMORE Not Available Start: 12-20-2024 End: 12-20-2024 ambulatory [facility] Start: 12-18-2024 End: 12-18-2024 Clinisync Result Encounter Generic External Data Provider [facility] External Department Unsolicited Start: 12-18-2024 End: 12-18-2024 Clinisync Result Encounter Generic External Data Provider [facility] External Department Unsolicited Start: 12-09-2024 End: 12-09-2024 Bamboo flowsheet Alexis Gilmore DPM Work Phone: [facility] Start: 12-09-2024 End: 12-09-2024 Bamboo flowsheet Alexis Gilmore DPM Work Phone: [facility] Start: 12-09-2024 End: 12-09-2024 ambulatory ALXEIS GILMORE Not Available Start: 12-09-2024 End: 12-09-2024 Office outpatient visit 15 minutes Alexis Gilmore DPM Work Phone: [facility] Comment on above: Heel spur, right (Pr imary Dx); Diabetes mellitus due to underlying condition with diabetic polyneuropathy, unspecified whether skilled nursing insulin use ([facility]); Pain due to onychomycosis of toenails of both feet; Onychomycosis; PVD (peripheral vascular disease) (CMS/[facility]); Achilles tendinitis, right leg; Contracture of right ankle Start: 10-21-2024 End: 10-21-2024 Office outpatient visit 25 minutes Trace Ramírez Work Phone: [facility] Start: 10-21-2024 ambulatory Trace Ramírez [facility] Start: 10-15-2024 End: 10-15-2024 Bamboo flowsheet Teena Delcid DO Work Phone: [facility] Start: 10-15-2024 End: 10-15-2024 Bamboo flowsheet Teena Delcid DO Work Phone: [facility] Start: 10-15-2024 End: 10-15-2024 Postop follow up visit related to original px Teena Estradaarodlomaisha DO Work Phone: [facility] Comment [...] C) (Primary Dx); PVD (peripheral vascular disease) (CMS/HCC); Diabetes mellitus due to underlying condition with diabetic polyneuropathy, unspecified whether skilled nursing insulin use (CMS/HCC); Pain due to onychomycosis of toenails of both feet Start: 09-30-2024 End: 09-30-2024 ambulatory MANJULA FULTON Not Available Start: 09-22-2024 End: 09-22-2024 Office outpatient visit 25 minutes Johnna Cedeño MANAGER RESOURCE Work Phone: [facility] Comment on above: Acute asthmatic bron chitis (CMS/HCC) (Primary Dx); Type 2 diabetes mellitus with hyperglycemia, with long-term current use of insulin (CMS/HCC); Polyneuropathy due to type 2 diabetes mellitus (CMS/HCC); Acute cough Start: 09-22-2024 End: 09-22-2024 ambulatory JOHNNA CEDEÑO Not Available Start: 09-17-2024 End: 09-17-2024 Bamboo flowsheet Teena Ml Zahler DO Work Phone: [facility] Start: 09-17-2024 End: 09-17-2024 Bamboo flowsheet Teena D Zahler DO Work Phone: [facility] Start: 09-17-2024 End: 09-17-2024 Postop follow up visit related to original px Teena D Zahler DO Work Phone: [facility] Comment on above: Pseudophakia (Primar y Dx) Start: 09-17-2024 End: 09-17-2024 ambulatory TEENA DELCID Not Available Start: 09-07-2024 End: 09-07-2024 Bamboo flowsheet Teena D Zahler DO Work Phone: [facility] Start: 09-07-2024 End: 09-07-2024 Bamboo flowsheet Teena D Zahler DO Work Phone: [facility] Start: 09-07-2024 End: 09-07-2024 Postop follow up visit related to original px Teena Ml Zahler DO Work Phone: [facility] Comment on above: Pseudophakia (Primar y Dx) Start: 09-07-2024 End: 09-07-2024 ambulatory TEENA DELCID Not Available Start: 08-31-2024 End: 08-31-2024 Bamboo [...] Not Available Start: 08-18-2024 End: 08-18-2024 ambulatory [facility] Start: 08-04-2024 End: 08-04-2024 Trace Ramírez Work Phone: [facility] Start: 08-04-2024 ambulatory Trace Ramírez [facility] [place] Start: 07-20-2024 End: 07-20-2024 ambulatory [facility] Ambulatory Start: 07-20-2024 End: 07-20-2024 Office outpatient visit 25 minutes Micheal Nova APRN-LESLEY Work Phone: [facility] Comment on above: S/P peripheral arter y angioplasty (Primary Dx); PAD (peripheral artery disease) ([facility]) Start: 07-20-2024 End: 07-20-2024 Subsequent hospital visit by physician [facility] Comment on above: PAD (peripheral freddie ry disease) ([facility]); S/P peripheral artery angioplasty Start: 07-20-2024 End: 09-10-2024 ambulatory [facility] Start: 07-13-2024 End: 07-13-2024 Bamboo flowsheet Teena [...] C) (Primary Dx); PVD (peripheral vascular disease) (CMS/HCC); Diabetes mellitus due to underlying condition with diabetic polyneuropathy, unspecified whether skilled nursing insulin use (CMS/HCC); Onychomycosis; Toe pain, bilateral Start: 07-09-2024 End: 07-09-2024 ambulatory ALEXIS GILMORE Not Available Start: 06-30-2024 End: 06-30-2024 Trace Ramírez Work Phone: [facility] Start: 06-30-2024 ambulatory Trace Ramírez [facility] [place] Start: 06-21-2024 End: 06-22-2024 Subsequent hospital visit by physician Nely Curry MD Work Phone: [facility] 7 Comment on above: S/P peripheral arter y angioplasty (Primary Dx); PAD (peripheral artery disease) ([facility]-HCC); 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 Work Phone: [facility] Comment on above: PAD (peripheral freddie ry disease) ([facility]) (Primary Dx); Anemia, unspecified type Start: 06-15-2024 End: 06-15-2024 ambulatory [facility] Ambulatory Start: 06-15-2024 End: 06-15-2024 ambulatory [facility] Start: 05-27-2024 End: 05-27-2024 Patient encounter procedure II Nik Bell Work Phone: [facility] [place] Work Phone: Start: 05-27-2024 End: 05-27-2024 ambulatory II Nik Bell Work Phone: [facility] Work Phone: Start: 05-27-2024 Encounter for other preprocedural examination Rodrigo Burt [facility] Start: 05-20-2024 End: 05-20-2024 ambulatory ALEXIS GILMORE Not Available Start: 05-19-2024 Non-patient / Non-visit II Mateo Bell Work Phone: [facility] Work Phone: Start: 05-19-2024 End: 05-19-2024 Admission to same day surgery center II Nik Bell Work Phone: [facility] Work Phone: Start: 05-19-2024 End: 05-19-2024 ambulatory II Nik Bell Work Phone: [facility] Work Phone: Start: 05-18-2024 End: 05-18-2024 Patient encounter procedure II Nik Bell Work Phone: [facility] Work Phone: Start: 05-17-2024 End: 05-17-2024 Patient encounter procedure II Nik Bell Work Phone: [facility] [place] Work Phone: Start: 05-17-2024 End: 05-17-2024 ambulatory II Nik Bell Work Phone: [facility] Work Phone: Start: 05-10-2024 End: 05-10-2024 ambulatory [facility] Start: 05-06-2024 End: 05-06-2024 Office outpatient visit 25 minutes Trace Ramírez Work Phone: [facility] Start: 05-05-2024 End: 05-05-2024 ambulatory ALEXIS GILMORE Not Available Start: 05-05-2024 End: 05-05-2024 ambulatory TEENA DELCID Not Available Start: 04-01-2024 End: 04-01-2024 ambulatory JOHNNA CEDEÑO Not Available Start: 03-18-2024 End: 03-18-2024 ambulatory JOHNNA CEDEÑO Not Available Start: 03-04-2024 End: 03-04-2024 ambulatory ALEXIS GILMORE Not Available Start: 02-18-2024 End: 02-18-2024 ambulatory ALEXIS GILMORE Not Available Start: 02-13-2024 End: 02-13-2024 ambulatory [facility] Start: 12-11-2023 End: 12-11-2023 Office outpatient visit 15 minutes Alexis Gilmore DPM Work Phone[facility] Comment on above: Diabetes mellitus du e to underlying condition with diabetic polyneuropathy, unspecified whether skilled nursing insulin use (CMS/HCC) (Primary Dx); PVD (peripheral vascular disease) (CMS/HCC); Dry gangrene (CMS/HCC); Foot ulcer, left, with fat layer exposed (CMS/HCC) Start: 02-19-2023 End: 02-19-2023 Patient encounter procedure Sabrina Borden [facility] Start: 02-19-2023 End: 02-19-2023 ambulatory II Nik Bell Work Phone: [employer] Other Start: 01-31-2023 End: 01-31-[address] NIK BELL Facility:[facility] Start: 01-13-2023 End: 01-13-2023 Admission to same day surgery center II Nik Bell Work Phone: [facility] Work Phone: Start: 01-13-2023 End: 01-13-2023 ambulatory II Nik Bell Work Phone: [facility] Work Phone: Start: 01-09-2023 End: 01-09-2023 ambulatory Geo Mathew Other [employer] Other Start: 01-09-2023 Office outpatient ne w 60 minutes Geo Mathew [facility] Start: 12-30-2022 End: 12-31-2022 ambulatory ALEXIS GILMORE Facility:[facility] Start: 11-12-[address] DOCTOR CHAN Facility :[facility] Start: 10-18-2022 End: 10-18-2022 Postop follow up visit related to original px Trace Ramírez MD, PhD [facility] Start: 10-18-2022 End: 10-18-2022 Jose Luis Corcoran Work Phone: [facility] Start: 10-17-2022 End: 10-17-2022 Jose Luis Corcoran Work Phone: [facility] Start: 10-14-2022 End: 10-14-2022 Office outpatient visit 25 minutes Jose Luis Corcoran Work Phone: [facility] Start: 09-27-2022 End: 09-27-2022 Office outpatient visit 25 minutes Jose Luis Corcoran Work Phone: [facility] [facility] Start: 08-17-2022 End: 08-18-[address] PANCHITO TRINIDAD Facility:[facility] Start: 07-21-2022 End: 07-21-[address] NIK BELL Facility:[facility] Start: 07-04-2022 End: 07-07-[address] NIK BELL Facility:[facility] Start: 06-29-2022 End: 07-03-2022 Evaluation and management of inpatient CHASE JOSE LUIS Facility:[facility] Start: 2022 End: [address] NIK BELL Facility:[facility] Start: 02-15-[address] NIK BELL Facilit y:[facility]1 Start: 09-20-2021 End: 09-20-2021 ambulatory Geo Mathew Other [employer] Other Start: 09-20-2021 Office outpatient vi sit 15 minutes Geo Mathew [facility] Vascular Surgery Start: 01-09-2021 End: 01-09-2021 Office outpatient visit 25 minutes Devon Hicks Jr Work Phone: [facility] [place] Start: 10-10-2020 End: 10-10-2020 Devon Hicks Jr Work Phone: [facility] [place] Start: 08-29-2020 End: 08-29-2020 Office outpatient visit 25 minutes Devon Hicks Jr Work Phone: JUANYA [facility] [place] Start: 10-26-2019 End: 10-26-2019 Devon Hicks Jr Work Phone: [facility] [place] Start: 09-22-2019 End: 09-22-2019 Devon Hicks Jr Work Phone: [facility] [place] Start: 05-05-2019 End: 05-05-2019 Office consultation new/estab patient 60 min Devon Hicks Jr Work Phone: [facility] [place] Procedures Date Procedure Procedure Detail Performing Clinician Start: 02-16-2025 US scan of abdominal aorta Nik Bell II Work Phone: Start: 02-15-2025 Computed tomography of abdomen and pelvis with contrast Nik Bell II Work Phone: Start: 02-15-2025 Plain chest X-ray Nik Bell II Work Phone: Start: 02-15-2025 Respiratory Panel (PCR) Nik Bell II Work Phone: Start: 02-15-2025 Viral nucleic acid assay Nik Bell II Work Phone: Start: 02-15-2025 End: 02-15-2025 Computerized ophthalmic imaging optic nerve Teena Delcid DO Work Phone: Start: 02-15-2025 End: 02-15-2025 [facility] medical xm&eval comprhnsv estab pt 1/> 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 (CMS/HCC) Teena Delcid DO Work Phone: Comment on above: Severe nonproliferative diabetic retinop athy of 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 associated with type 2 diabetes mellitus (CMS/HCC) (Primary Dx); 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 (CMS/HCC); Epiretinal membrane (ERM) of both eyes; Dry eyes Start: 01-05-2025 End: 01-05-2025 Computerized ophthalmic imaging retina Trace Ramírez Start: 01-05-2025 Eylea 1mg Pre-filled Syringe Trace kohli Start: 01-05-2025 End: 01-05-2025 Eylea 1mg Pre-filled Syringe Trace kohli MD, PhD Start: 01-05-2025 Intravitreal Injection Of Phamacologic Agent Trace Ramírez Start: 01-05-2025 End: 01-05-2025 Intravitreal Injection Of Phamacologic Agent Trace Ramírez MD, PhD Start: 01-05-2025 End: 01-05-2025 Intravitreal njx pharmacologic agt spx Trace Ramírez MD, PhD Start: 12-30-2024 Hemoglobin glycosylated a1c Johnna headley MANAGER RESOURCE Work Phone: Start: 12-18-2024 ALL LIPID PROFILE (FASTING) Generic Exte rnal Data Provider Start: 12-18-2024 [facility] CMP (CMP) (FOR REMOTE [facility] USE) Generic External Data Provider Start: 10-21-2024 End: 10-21-2024 Eylea 1mg Pre-filled Syringe Trace kohli MD, PhD Start: 10-21-2024 Eylea 1mg Pre-filled Syringe Trace kohli Start: 10-21-2024 End: 10-21-2024 Fluorescein angrph w/multiframe i&r uni/bi Trace Ramírez MD, PhD Start: 10-21-2024 End: 10-21-2024 Intravitreal Injection Of Phamacologic Agent Trace Ramírez MD, PhD Start: 10-21-2024 Intravitreal Injection Of Phamacologic Agent Trace Ramírez Start: 10-21-2024 End: 10-21-2024 Intravitreal njx pharmacologic agt spx Trace Ramírez MD, PhD Start: 09-22-2024 Hemoglobin glycosylated a1c Johnna headley NP Work Phone: Start: 08-04-2024 End: 08-04-2024 Computerized ophthalmic imaging retina Trace Ramírez MD, PhD Start: 08-04-2024 End: 08-04-2024 Eylea 1mg Pre-filled Syringe Trace kohli MD, PhD Start: 08-04-2024 Eylea 1mg Pre-filled Syringe Trace kohli Start: 08-04-2024 End: 08-04-2024 Intravitreal Injection Of Phamacologic Agent Trace Ramírez MD, PhD Start: 08-04-2024 Intravitreal Injection Of Phamacologic Agent Trace Ramírez Start: 07-20-2024 Non-invas physiologic std extremity art 2 level Terri I Tabirta SERVICE OFFICER-WARD AIDE Work Phone: Start: 07-13-2024 Oph bmtry prtl [...] PhD Start: 06-21-2024 INVASIVE VASCULAR PROCEDURE Margareth Meka nuñezhbor DO Work Phone: Start: 06-21-2024 End: 06-21-2024 Coagulation time activated Nely Curry MD Work Phone: Start: 06-21-2024 End: 06-21-2024 Coagulation time activated Nely Curry MD Work Phone: Start: 05-19-2024 Abdominal aortogram II Nik Bell Work Phone: Start: 05-19-2024 Aortography II Nik Bell Work Phone: Start: 05-17-2024 Pulse volume recorder [...] Trace Ramírez MD, PhD Start: 07-12-2021 Moira Curry MD Work Phone: Start: 01-09-2021 End: 01-09-2021 [...] spx Trace Ramírez MD, PhD Start: 08-23-2020 Addy NEWTONM Work Phone: Start: 10-26-2019 End: 10-26-2019 Fluorescein angrph w/multiframe i&r uni/bi Trace Ramírez MD, PhD Start: 10-26-2019 End: 10-26-2019 Treatment extensive retinopathy photocoagulation Trace Ramírez MD, PhD Start: 09-22-2019 End: 09-22-2019 Computerized ophthalmic imaging retina Trace Ramírez MD, PhD Start: 05-05-2019 End: 05-05-2019 Fundus photography w/interpretation & report Trace Ramírez MD, PhD History of coronary artery bypass grafting S/P CABG x 4 Johnna Cedeño MANAGER RESOURCE Work Phone: Plan of Treatment Date Care Activity Detail Author Start: 04-01-2034 DTaP/Tdap/Td Vaccines (2 - Td or Tdap) DTaP/Tdap/Td Vaccines (2 - Td or Tdap) [facility] Start: 07-12-2031 Screening for malignant neoplasm of colon [facility] Start: 02-15-2026 Glaucoma screening Diabetes: Retinopathy Screening [facility] Start: 01-05-2026 Glaucoma screening Diabetes: Retinopathy Screening [facility] Start: 07-20-2025 End: 07-20-2026 Vascular US Ankle Brachial Index (BRIDGER) Without Exercise Vascular US Ankle Brachial Index (BRIDGER) Without Exercise Vascular Ultrasound Routine PAD (peripheral artery disease) ([facility]) Expected: 07/20/2025 (Approximate), Expires: 07/20/2026 [facility] Work Phone: Comment on above: Expected: 07/20/2025 (Approximate), Expi res: 07/20/2026 Start: 07-19-2025 End: 07-19-2025 Patient encounter procedure [facility] Start: 07-13-2025 Glaucoma screening Diabetes: Retinopathy Screening [facility] Start: 05-05-2025 Glaucoma screening Diabetes: Retinopathy Screening [facility] Start: 04-01-2025 Medicare Annual Wellness (AWV) Medicare Annual Wellness (AWV) [facility] Start: 03-31-2025 End: 03-31-2025 Patient encounter procedure 03/31/2025 1:00 PM EDT Office Visit [facility] [address] [facility] [address] [place] [phone] Johnna Cedeño NP [address] [facility] [address] [place] [address] [facility] Start: 03-30-2025 End: 03-30-2025 Patient encounter procedure 03/30/2025 9:30 AM EDT Office Visit [facility] [address] [facility] [address] [place] [address] Johnna Cedeño MANAGER RESOURCE [address] [facility] [address] [place] [address] [facility] Start: 03-29-2025 Hemoglobin A1c measurement Diabetes: Hemoglobin A1C [facility] Start: 02-17-2025 End: 02-17-2025 Patient encounter procedure 02/17/2025 9:40 AM EDT Office Visit [facility] [address] [facility] [address] [place] [address] Alexis Gilmore DPM [address] [address] [facility] Start: 02-16-2025 Marimar Patel / 5-6wk IO Eyl OU [facility] Work Phone: Start: 02-16-2025 [facility] Start: 02-15-2025 [facility] Start: 02-15-2025 Hospital admission [facility] Start: 02-15-2025 [facility] Start: 02-15-2025 End: 02-15-2025 Patient encounter procedure [facility] Comment on above: Arrived Start: 02-11-2025 Urine screening for protein Diabetes: Urine Protein Screening [facility] Start: 01-13-2025 End: 01-13-2025 Clinical Support 01/13/2025 11:50 AM EST Clinical Support [facility] [address] [address] [place] [address] Alexis Gilmore DPM [address] [facility] 5 [place] [address] [facility] Start: 12-30-2024 End: 02-27-2026 MG Breast - bilateral Screening Bilateral screening mammogram Imaging Routine Encounter for screening mammogram for malignant neoplasm of breast Expected: 12/30/2024, Expires: 02/27/2026 [facility] Work Phone: Comment on above: Expected: 12/30/2024, Expires: Start: 12-30-2024 End: 12-30-2024 Patient encounter procedure [facility] Comment on above: Heel spur, right (Primary Dx); Achilles tendinitis, right leg; Contracture of right ankle Start: 12-23-2024 Hemoglobin A1c measurement Diabetes: Hemoglobin A1C [facility] Start: 12-23-2024 End: 12-23-2024 Clinical Support 12/23/2024 9:50 AM EST Clinical Support [facility] [address] [phone] Alexis Gilmore, DPM [address] [address] [facility] Start: 12-09-2024 End: 12-09-2024 Patient encounter procedure 12/09/2024 9:20 AM EST Office Visit [facility] [address] [facility] [address] [place] [phone] Alexis Gilmore, DPM [address] [address] [facility] Start: 12-05-2024 Diabetes mellitus screening Diabetes Screening [facility] Start: 10-15-2024 End: 10-15-2024 Patient encounter [...] underlying condition with diabetic polyneuropathy, unspecified whether rodent exterminator insulin use ([facility]); Pain due to onychomycosis of toenails of both feet Start: 09-21-2024 End: 09-21-2024 Patient encounter procedure 09/21/2024 11:50 AM EST Office Visit [facility] [address] [place] [phone] Alexis Gilmore DPM [address] [address] [facility] Start: 09-17-2024 End: 09-17-2024 Patient encounter procedure 09/17/2024 11:50 AM EST Office Visit [facility] [address] [place] [phone] Alexis Gilmore DPM [address] [address] [facility] Start: 09-17-2024 End: 09-17-2024 Patient encounter procedure 09/17/2024 9:30 AM EST Office Visit [facility] [address] [place] [phone] Teena Delcid DO [address] [place] [address] Arrived [facility] Comment on above: Arrived Start: 09-07-2024 End: 09-07-2024 Patient encounter procedure [facility] Comment on above: Arrived Start: 09-06-2024 End: 09-06-2024 Patient encounter procedure 09/06/2024 9:05 AM EDT Procedure Visit [facility] Teena Delcid, [address] [place] [address] [facility] Start: 08-31-2024 End: 08-31-2024 Patient encounter procedure 08/31/2024 8:45 AM EDT Office Visit [facility] [address] [place] [phone] Teena Delcid, [address] [place] [address] [facility] Start: 08-24-2024 End: 08-24-2024 Patient encounter procedure [facility] Comment on above: Arrived Start: 08-23-2024 End: 08-23-2024 Patient encounter procedure 08/23/2024 8:45 AM EDT Procedure Visit [facility] Teena Delcid, [address] [place] [address] [facility] Start: 08-04-2024 Marimar Patel 5-6 (5)wks Io Oct Eyl Ou [facility] Work Phone: Start: 07-22-2024 End: 06-21-2026 Vascular US Ankle Brachial Index (BRIDGER) Without Exercise Vascular US Ankle Brachial Index (BRIDGER) Without Exercise Vascular Ultrasound Routine PAD (peripheral artery disease) ([facility]) S/P peripheral artery angioplasty Expected: 07/22/2024 (Approximate), Expires: 06/21/2026 [facility] Work Phone: Comment on above: Expected: 07/22/2024 (Approximate), Expi res: 06/21/2026 Start: 07-20-2024 End: 07-20-2024 Patient encounter procedure [facility] Start: 07-13-2024 End: 07-13-2024 Patient encounter procedure [facility] Comment on above: Arrived Start: 07-11-2024 Influenza vaccination Influenza Vaccine (#1) [facility] Start: 07-09-2024 End: 07-09-2024 Patient encounter procedure 07/09/2024 11:50 AM EDT Office Visit [facility] [address] [place] [address] Alexis Gilmore, KIKA [address] [address] PVD (peripheral vascular disease) ([facility]) (Primary Dx); Diabetes mellitus due to underlying condition with diabetic polyneuropathy, unspecified whether skilled nursing insulin use ([facility]); Dry gangrene ([facility]); Onychomycosis; Toe pain, bilateral [facility] Comment on above: PVD (peripheral vascular disease) ([facility]/ CC) (Primary Dx); Diabetes mellitus due to underlying condition with diabetic polyneuropathy, unspecified whether rodent exterminator insulin use ([facility]); Dry gangrene ([facility]); Onychomycosis; Toe pain, bilateral Start: 07-02-2024 Hemoglobin A1c measurement Diabetes: Hemoglobin A1C [facility] Start: 05-27-2024 Ultrasound (US) doppler flow mapping of vein of upper limb US venous mapping [facility] Start: 05-27-2024 US Lower extremity veins - [facility] Start: 05-27-2024 US scan venography of lower limbs US venous mapping [facility] Start: 05-27-2024 US Upper extremity vein - [facility] Start: 05-19-2024 Patient referral [facility] Work Phone: Start: 05-19-2024 [facility] Start: 05-17-2024 Pulse volume recorder pneumoplethysmography US arterial pvr rest [facility] Start: 05-17-2024 [facility] Start: 03-03-2024 Hemoglobin A1c measurement Diabetes: Hemoglobin A1C [facility] Start: 02-05-2024 End: 02-05-2024 Patient encounter procedure 02/05/2024 10:10 AM EDT Office Visit [facility] [address] [address] Alexis Gilmore DPM [address] [address] [facility] Start: 12-15-2023 End: 12-15-2023 Patient encounter procedure 12/15/2023 2:30 PM EST Office Visit [facility] [address] [place] [phone] Nik Bell MD 112 [facility] [address] [place] [address] [facility] Start: 07-11-2023 Influenza vaccination Influenza Vaccine (#1) [facility] Start: 07-06-2023 Screening for malignant neoplasm of colon FIT [facility] Start: 01-13-2023 [facility] Start: 01-09-2022 Glaucoma screening Diabetes: Retinopathy Screening [facility] Start: 10-06-2021 Pneumococcal Vaccine: 65+ Years (2 - PCV) Pneumococcal Vaccine: 65+ Years (2 - PCV) [facility] Start: 10-06-2021 Pneumococcal Vaccine: 65+ Years (3 of 3 - PCV) Pneumococcal Vaccine: 65+ Years (3 of 3 - PCV) [facility] Start: 08-23-2021 Screening for malignant neoplasm of breast Mammogram [facility] Start: 01-17-2021 Urine screening for protein Diabetes: Urine Protein Screening [facility] Start: 01-09-2021 Smoking cessation education Tobacco cessation counseling [facility] Start: 10-26-2019 Patient Education Health Information for You: [employer]~ [facility] Work Phone: Start: 2014 RSV patients and/or patients aged 60+ years (1 - 1-dose 60+ series) RSV patients and/or patients aged 60+ years (1 - 1-dose 60+ series) [facility] Start: 1973 Zoster Vaccines (1 of 2) Zoster Vaccines (1 of 2) [facility] Start: 1972 Hepatitis C screening Hepatitis C Screening [facility] Start: 1959 COVID-19 Vaccine (#1) COVID-19 Vaccine (#1) [facility] Start: 1954 Lipid panel Lipid Panel [facility] Start: 1954 Medicare Annual Wellness (AWV) Medicare Annual Wellness (AWV) [facility] Start: 1954 Medicare Annual Wellness Visit Medicare Annual Wellness Visit (AWV) [facility] Start: 1954 Screening for malignant neoplasm of colon [facility] Glucose [Mass/volume ] in Serum or Plasma POCT Glucose Point of Care Testing - Docked Device Routine As needed (Lab) until discontinued starting 06/21/2024 [facility] Work Phone: Comment on above: As needed (Lab) until discontinued start ing 06/21/2024 Patient Education [facility] Work Phone: Patient referral [facility] Work Phone: US Eye+Orbit - bilateral IOL Bio metry - OU - Both Eyes (CPT 04507) Ophthalmology Routine Pseudophakia Ordered: 10/15/2024 [facility] Work Phone: Comment on above: Ordered: 10/15/2024 US Lower extremity v eins - bilateral [facility] US Upper extremity v ein - bilateral [facility] Vascular US Ankle Br achial Index (BRIDGER) Without Exercise Vascular US Ankle Brachial Index (BRIDGER) Without Exercise Vascular Ultrasound Routine PAD (peripheral artery disease) ([facility]) S/P peripheral artery angioplasty 07/20/2024 4:17 PM EDT [facility] Work Phone: Immunizations Immunization Date Immunization Notes Care Provider Reji roberts 09-30-2024 Influenza, High-dose Seasonal, Quadrivalent, Preservative Free Manjula CUEVAS Work Phone: [facility] 04-01-2024 tetanus toxoid, redu ingrid diphtheria toxoid, and acellular pertussis vaccine, adsorbed Alexis Gilmore DPM Work Phone: [facility] 08-28-2022 Influenza, High-dose Seasonal, Quadrivalent, Preservative Free Alexis Gilmore DPM Work Phone: [facility] 08-28-2022 influenza virus vacc ine, unspecified formulation Alexis Gilmore DPM Work Phone: [facility] 09-05-2021 Influenza, Seasonal, Quadrivalent, Adjuvanted Alexis Gilmore DPM Work Phone: [facility] 10-06-2020 influenza, injectabl e, quadrivalent, preservative free Alexis Brown DPM Work Phone: [facility] 10-06-2020 pneumococcal polysaccharide vaccine, 23 valent Alexis Brown DPM Work Phone: [facility] 10-05-2020 influenza, high dose seasonal, preservative-free Alexis Brown DPM Work Phone: [facility] 08-10-2019 influenza, high dose seasonal, preservative-free Alexis Brown DPM Work Phone: [facility] 08-25-2018 seasonal influenza, intradermal, preservative free Alexis Brown DPM Work Phone: [facility] 09-24-2017 seasonal influenza, intradermal, preservative free Alexis Brown DPM Work Phone: [facility] 09-25-2016 influenza, injectabl e, quadrivalent, preservative free Alexis Brown DPM Work Phone: [facility] 09-25-2016 pneumococcal polysaccharide vaccine, 23 valent Alexis Brown DPM Work Phone: [facility] 10-02-2015 seasonal influenza, intradermal, preservative free Alexis Brown DPM Work Phone: [facility] 10-27-2014 influenza, injectabl e, quadrivalent, preservative free Alexis Brown DPM Work Phone: [facility] Payers Date Payer Category Payer [facility] er [id number] 2022 Unknown [id number] 2015 Medicare [id number] 1959 Medicare [id number] 1959 Self-pay [id number] 1959 Unknown [id number] 2.16.840.1.004473. 1959 Unknown [id number] 1954 Unknown [id number] 2.16.840.1.246853.3.579.2 .647 1954 Unknown [id number] 2.16.840.1.851466.3.579.2 .593 1954 Unknown [id number] 2.16.840.1.581348.3.579.2 .593 1954 Unknown [id number] 2.16.840.1.416520.3.579.2 .593 1954 Unknown [id number] 2.16.840.1.089269.3.579.2 .593 1954 Unknown [id number] 2.16.840.1.970908.3.579.2 .593 1954 Unknown [id number] 2.16.840.1.983902.3.579.2 .593 1954 Unknown [id number] 2.16.840.1.911839.3.579.2 .593 1954 Unknown [id number] 2.16.840.1.766685.3.579.2 .593 1954 Unknown [id number] 2.16.840.1.355194.3.579.2 .1244 1954 Unknown [id number] 2.16.840.1.806325.3.579.2 .1244 1954 Unknown [id number] 2.16.840.1.432700.3.579.2 .1245 1954 Unknown [id number] 2.16.840.1.071403.3.579.2 .1245 1954 Unknown [id number] 2.16.840.1.017281.3.579.2 .1245 1954 Unknown [id number] 2.16.840.1.270740.3.579.2 .1245 1954 Unknown [id number] 2.16.840.1.792730.3.579.2 .1347 1954 Unknown [id number] 2.16.840.1.738253.3.579.2 .1346 1954 Unknown [id number] 2.16.840.1.643043.3.579.2 .1347 1954 Unknown [id number] 2.16.840.1.098999.3.579.2 .1346 1954 Unknown [id number] 2.16.840.1.902132.3.579.2 .9 1954 Unknown [id number] 2.16.840.1.571807.3.579.2 .1259 1954 Unknown [id number] 2.16.840.1.957967.3.579.2 .1259 1954 Unknown [id number] 2.16.840.1.241136.3.579.2 .125 1954 Unknown [id number] 2.16.840.1.262950.3.579.2 .1259 1954 Unknown [id number] 2.16.840.1.724359.3.579.2 .125 1954 Unknown [id number] 2.16.840.1.249801.3.579.2 .1259 1954 Unknown [id number] 2.16.840.1.823168.3.579.2 .1258 1954 Unknown [id number] 2.16.840.1.944208.3.579.2 .1258 1954 Unknown [id number] 2.16.840.1.520215.3.579.2 .125 1954 Unknown [id number] 2.16.840.1.491754.3.579.2 .1258 1954 Unknown [id number] 2.16.840.1.701005.3.579.2 .1258 1954 Unknown [id number] 2.16.840.1.623321.3.579.2 .1258 1954 Unknown [id number] 2.16.840.1.741340.3.579.2 .1258 1954 Unknown [id number] 2.16.840.1.269922.3.579.2 .1258 1954 Unknown [id number] 2.16.840.1.519833.3.579.2 .1258 1954 Unknown [id number] 2.16.840.1.611428.3.579.2 .1258 1954 Unknown [id number] 2.16.840.1.430924.3.579.2 .125 1954 Unknown [id number] 2.16.840.1.768587.3.579.2 .125 1954 Unknown [id number] 2.16.840.1.578800.3.579.2 .1258 1954 Unknown [id number] 2.16.840.1.074550.3.579.2 .1259 Unknown [id number] 2.16.840.1.374616.3.579.2 .531 Unknown [id number] 2.16.840.1.192158.3.579.2 .531 Unknown [id number] 2.16.840.1.047354.3.579.2 .531 Unknown [id number] 2.16.840.1.945177.3.579.2 .531 Social History Date Type Detail Facility Start: 12-11-2023 End: 04-01-2024 Sex Assigned At [employer] Other Start: 01-13-2023 End: 06-15-2024 Tobacco smoking status [facility] Never smoked tobacco (finding) [facility] Start: 1955 Sex Assigned At Female F [facility] Start: 12-11-2023 End: 02-15-2025 Alcohol intake Lifetime non-drinker (finding) [facility] Start: 12-11-2023 End: 04-01-2024 History of Social function [facility] Start: 1955 Sex Assigned At Not on file N [facility] Start: 06-30-2024 End: 01-05-2025 Tobacco smoking status [facility] Light tobacco smoker [facility] Start: 06-30-2024 History of tobacco use Light cigarette smoker (1-9 cigs/day) [facility] Start: 06-30-2024 Health-related behavior (observable entity) Caffeine Use Details [facility] Start: 06-30-2024 Tobacco use and exposure Smoking Tobacco Use Details [facility] Start: 05-05-2024 End: 02-15-2025 Tobacco smoking status TXIS Ex-smoker [facility] Work Phone: History of tobacco use Current smoker [facility] History of tobacco use Cigarette Smoker [facility] Start: 06-15-2024 End: 12-30-2024 Tobacco use and exposure Smokeless tobacco non-user [facility] Work Phone: How often to you hav e a drink containing alcohol? Never [facility] How many standard drinks containing alcohol do you have on a typical day? Patient does not drink [facility] Work Phone: In the past 12 months, was there a time when you were not able to pay the mortgage or rent on time? No [facility] Work Phone: Start: 06-11-2024 End: 07-20-2024 Exposure to SARS-CoV-2 (event) Not sure [facility] Start: 02-15-2025 End: 02-16-2025 Sex Female (finding) [facility] NEGATED: Highlighted row Alcohol intake Alcohol Use Details [facility] Medical Equipment Procedure Code Equipment Code Equipment Origin al Text Equipment Identifier Dates [id number] Start: 12-30-2023 End: 06-21-2024 USE DIRECTED TO ADMINISTER INSULIN TWICE DAILY [id number] Start: 02-02-2024 Goals Date Patient Goal Desired Activity /State Functional Status Date Assessment Result Facility 02-16-2025 Functional status Patient at Baseline [facility] Work Phone: 02-15-2025 Functional status Patient Not at Baseline [facility] Work Phone: Mental Status Date Assessment Result Facility 02-16-2025 Cognitive function Cognitive Sta tus Patient at Baseline [facility] Work Phone: 02-15-2025 Cognitive function Cognitive Sta tus Patient at Baseline [facility] Work Phone: Clinical Notes 09-20-2021 to 02-16-2025 Note Date & Type Note Facility 02-16-2025 Discharge summary [facility] enter 02-16-2025 Radiology Diagnostic study note [facility] [place] [address] Ultrasound Report Signed Patient: Marimar Patel MR#: [id number] : 1955 Acct:[id number] Age/Sex: 69 / F ADM Date: 5 Loc: 3T Room: [address] [place] [address] Type: ADM INOo Attending Dr: Edvin Casper MD Ordering Provider: Edvin Casper MD Date of Service: 02/16/25 US/US aorta (aaa) screening: Severe Abdominal and back pain Copies to: Edvin Casper MD~ Aortic ultrasound Reason for exam: Screening. Back pain Comparison: CT abdomen and pelvis 02/15/2025 Technique: Grayscale, spectral and color Doppler images of the abdominal aorta were obtained. Findings: Visualized portions of the abdominal aorta appears normal in caliber without evidence of aneurysm. Visualized portions of the common iliac arteries also appear normal in caliber. US/US aorta (aaa) screening Impression: No ultrasound evidence of abdominal aortic aneurysm. Impression dictated by: Julio Cesar Erwin Jr., D.OIndu02/16/2025 8:26 AM Dictation Location: [place] [address] Tech: Ana Maria Aruna Transcribed By: JOSUE 02/16/25825 Dictated By: Julio Cesar Erwin Jr, DO 02/16/25824 Signed By: 02/16/25825 [facility] 02-16-2025 History and physi kalyn note Note Date/Time February 15, 2025 10:23pm [facility] [address] [place] [address] Hospitalist H&P Signed Patient: Marimar Patel MR#: [id number] : 1955 Acct:[id number] Age/Sex: 69 / F Adm Date: 5 Loc: Room: [address] [place] [address] Type: ADM INOo Attending Dr: Edvin Casper MD Copies to: MD Edvin Robins II, MD~ HPI DATE OF EXAMINATION: 02/15/25 CHIEF COMPLAINT: Abdominal pain, back pain, shortness of breath and weakness HISTORY OF PRESENT ILLNESS: Ms. Patel is a 69-year-old female with PMH of insulin-dependent DM 2, aortic stenosis status post TAVR, PAD status post multiple lower extremity interventions, HTN, HLD, CAD status post CABG, A-fib on Eliquis, carotid stenosis who presents to the emergency department today with multiple complaints. Mainly, patient was coming back from an eye appointment in [facility] when she started having right upper quadrant abdominal pain that came on all of a sudden, was sharp and increased to a 10/10 level very quickly. Patientdoes not normally follow-up here with her medical care. She presented to the [facility] urgent care, but she was too incapacitated by pain from the right side of her abdomen that she was not able to ambulate into the building. Squad was called as a result. Patient states she has occasional right-sided abdominal pain that she is able to rub and have go away a few times per week. This pain was higher in severity and thus she could not ignore it or rub it away. She denies any change in her stooling pattern, nausea, poor p.o. intake or other issues recently. She denies any sick contacts. She was with her when this occurred and thus they decided to call squad from the [facility] urgent care parking lot. She does note no history of smoking, has had her gallbladder, appendix and uterus removed in the past. In the emergency department, patient's vital signs were largely within normal limits. CT imaging of the abdomen and pelvis noteworthy for no major acute findings. Patient has prominent atherosclerotic disease which is well-known anddocumented in the past. Chemistry noteworthy for anemia, with hemoglobin of 8.8and hyperkalemia of 5.6 with creatinine of 1.44. Patient was given 1 dose of Dilaudid and 1 L IV fluids. Unclear of patient's recent baseline at this time. Case was discussed with myself and ED attending and patient is admitted to hospital service for further management. Review of Systems Review of Systems Review of systems: 10 point ROS reviewed and is negative except for that which is noted above in the [facility] Medical History (Updated 02/15/25 @ 22:23 by Edvin Casper MD) Diabetes mellitus, type 2 Problem List clean-up per request of Phys. EHR [facility] Hypertension Problem List clean-up per request of Phys. EHR Cmte Hyperlipidemia Problem List clean-up per request of Phys. EHR Cmte Myocardial infarct Problem List clean-up per request of Phys. EHR Cmte Diverticulitis Problem List clean-up per request of Phys. EHR Cmte Carotid stenosis Problem List clean-up per request of Phys. EHR [facility] Surgical History H/O: hysterectomy Hx of aortic valve replacement 09/2022 Problem List clean-up per request of Phys. EHR [facility] H/O heart artery stent 2022 Problem List clean-up per request of Phys. EHR Cmte History of appendectomy Problem List clean-up per request of Phys. EHR Cmte Hx of hernia repair Problem List clean-up per request of Phys. EHR Cmte History of heart bypass surgery 2013 Problem List clean-up per request of Phys. EHR Cmte History of tonsillectomy Problem List clean-up per request of Phys. EHR Cmte History of cholecystectomy Problem List clean-up per request of Phys. EHR Cmte Family History (Updated 01/13/23 @ 12:00 by Isabela Ny RN) Other No significant family history Social History Smoking Status: Former smoker Substance Use Type: None Meds Medications and Allergies Allergies Penicillins Allergy (Unknown, Verified 05/19/24 08:26) Hives Home Medications apixaban 5 mg tablet (Eliquis) 5 mg PO BID 01/13/23 [History Confirmed 02/15/25] atorvastatin 80 mg tablet 80 mg PO DAILY 01/13/23 [History Confirmed 02/15/25] carvedilol 25 mg tablet 25 mg PO BID 01/13/23 [History Confirmed 02/15/25] citalopram 20 mg tablet 20 mg PO DAILY 01/13/23 [History Confirmed 02/15/25] furosemide 40 mg tablet 60 mg PO DAILY 01/13/23 [History Confirmed 02/15/25] gabapentin 300 mg capsule 300 mg PO BID 01/13/23 [History Confirmed 02/15/25] insulin regular human 100 unit/mL (3 mL) subcutaneous pen (Novolin R FlexPen) 10unit subcut TID.AC 01/13/23 [History Confirmed 02/15/25] lisinopril 20 mg tablet 20 mg PO DAILY 01/13/23 [History Confirmed 02/15/25] potassium chloride 20 mEq tablet,extended release(part/cryst) 20 meq PO DAILY 01/13/23 [History Confirmed 02/15/25] clopidogrel 75 mg tablet 75 mg PO DAILY 05/18/24 [History Confirmed 02/15/25] amlodipine 10 mg tablet 10 mg PO DAILY 02/15/25 [History Confirmed 02/15/25] hydralazine 25 mg tablet 25 mg PO BID 02/15/25 [History Confirmed 02/15/25] hydralazine 50 mg tablet 50 mg PO BID 02/15/25 [History Confirmed 02/15/25] insulin glargine 100 unit/mL (3 mL) subcutaneous pen (Lantus Solostar U-100 Insulin) 80 unit subcut HS 02/15/25 [History Confirmed 02/15/25] loratadine 10 mg tablet (Allergy Relief (loratadine)) 10 mg PO DAILY 02/15/25 [History Confirmed 02/15/25] multivitamin (Daily Multi-Vitamin tablet) 1 tab PO DAILY 02/15/25 [History Confirmed 02/15/25] Exam Physical Exam Vital Signs: Temp Pulse Resp BP Pulse Ox O2 Del Method 97.9 F 64 18 162/69 H 95 Room Air 02/15/25 20:20 02/15/25 20:20 02/15/25 20:20 02/15/25 20:20 02/15/25 20:20 02/15/25 20:45 Narrative: Constitutional: Middle-aged WF, resting in bed comfortably HEENT: Moist mucous membranes, neck supple Cardiovascular: RRR, no M/R/G, normal S1 and S2, no JVD Respiratory: Lungs clear to auscultation bilaterally, no wheezes, rales or rhonchi GI: Soft, NTND, normoactive bowel sounds : Deferred Neuro: AAO x3, no focal deficits. CN III-VII grossly intact, Strength 5/5 throughout Extremities: No clubbing, cyanosis or edema Psych: Patient calm, cooperative and conversant Results - Hospitalist H&P Lab Results Labs: Laboratory Last Values Corrected WBC 10.6 X10E3/uL (3.8-11.6) 02/15/25 14:30 Uncorrected WBC Count 10.6 x10E3/uL (3.8-11.6) 02/15/25 14:30 RBC 3.11 x10E6/uL (3.60-5.00) L 02/15/25 14:30 Hgb 8.8 g/dL (11.8-15.4) L 02/15/25 14:30 Hct 26.9 % (34.0-46.4) L 02/15/25 14:30 MCV 86.5 fl (80-100) 02/15/25 14:30 MCH 28.4 pg (24.7-34.3) 02/15/25 14:30 MCHC 32.8 g/dL (32.0-35.0) 02/15/25 14:30 RDW 16.6 % (11.9-15.3) H 02/15/25 14:30 Plt Count 184 x10E3/uL (150-450) 02/15/25 14:30 MPV 9.2 fl (6.3-10.7) 02/15/25 14:30 Neut % (Auto) 65.2 % (.) 02/15/25 14:30 Lymph % (Auto) 21.3 % (.) 02/15/25 14:30 [place] % (Auto) 9.1 % (.) 02/15/25 14:30 Eos % (Auto) 3.4 % (.) 02/15/25 14:30 Baso % (Auto) 1.0 % (.) 02/15/25 14:30 Nucleat RBC Rel Count 0.0 /100 WBC (0-0.5) 02/15/25 14:30 Neut # (Auto) 6.9 x10E3/uL (1.8-7.7) 02/15/25 14:30 Lymph # (Auto) 2.3 x10E3/uL (1.00-4.8) 02/15/25 14:30 [place] # (Auto) 1.0 x10E3/uL (0.0-0.8) H 02/15/25 14:30 Eos # (Auto) 0.4 x10E3/uL (0.0-0.45) 02/15/25 14:30 Baso # (Auto) 0.1 x10E3/uL (0.0-0.2) 02/15/25 14:30 Monocyte Dist Width 18.23 % (0.00-20.00) 02/15/25 14:30 PHA Creatinine Clear 36.12 02/15/25 14:30 Sodium 132 mmol/L (136-145) L 02/15/25 14:30 Potassium 5.2 mmol/L (3.5-5.1) H 02/15/25 14:30 Chloride 98 mmol/L (98-107) 02/15/25 14:30 Carbon Dioxide 25.8 mmol/L (21.0-31.0) 02/15/25 14:30 Anion Gap 13.4 mEq/L (6.0-15.0) 02/15/25 14:30 BUN 42 mg/dL (7-25) H 02/15/25 14:30 Creatinine 1.44 mg/dL (0.60-1.20) H 02/15/25 14:30 Est GFR (CKD-EPI) 39.128 mL/Min 02/15/25 14:30 Glucose 371 mg/dL (70-100) H 02/15/25 14:30 POC Glucose 377 mg/dl 02/15/25 20:50 POC Glucose Comment Glu2: cleaned meter 02/15/25 20:50 Calcium 9.4 mg/dL (8.6-10.3) 02/15/25 14:30 Total Bilirubin 0.4 mg/dl (0.3-1.0) 02/15/25 14:30 AST 17 U/L (13-39) 02/15/25 14:30 ALT 15 U/L (7-52) 02/15/25 14:30 Alkaline Phosphatase 73 U/L (34-104) 02/15/25 14:30 Total Creatine Kinase 61 U/L (30-223) 02/15/25 14:30 Troponin I High Sens 11 ng/L (0-15) 02/15/25 14:30 B-Natriuretic Peptide 278.0 pg/mL (5-100) H 02/15/25 14:30 Total Protein 6.6 gm/dL (6.4-8.9) 02/15/25 14:30 Albumin 3.9 gm/dL (3.5-5.7) 02/15/25 14:30 Globulin 2.7 gm/dL 02/15/25 14:30 Albumin/Globulin Ratio 1.4 02/15/25 14:30 Lipase 41.0 U/L (11.0-82.0) 02/15/25 14:30 SARS-CoV-2 Rap RNA(RT-PCR) Negative (Negative) 02/15/25 14:13 Microbiology Results Micro: Microbiology - Results from entire visit 02/15/25 14:13 Nasopharyngeal SARS-CoV-2, Influenza & RSV (PCR) - Final Assessment & Plan Assessment/Plan (1) Abdominal pain: Plan Abdominal pain Nonspecific. Patient had severe right upper quadrant abdominal pain that came on suddenly and then resolved in the ED after pain medication was given. CT of the abdomen and pelvis does not demonstrate any acute issues such as renal stone, biliary issue or other clear etiology of symptoms. Will continue to monitor overnight to see if symptoms resolve. Patient is a vasculopath and I dobelieve AAA would be visualized on CT imaging of the abdomen and pelvis, but will obtain ultrasound specifically to rule out AAA. Otherwise supportive care Normocytic anemia Patient does note chronic fatigue and weakness. Hemoglobin 8.8. She is maintained on blood thinners. No acute evidence of bleeding at this time. Patient does not have any recent lab work here. - Obtain iron studies - Replete iron, B12, folate as needed Other chronic medical conditions noted below, continue home regimens unless otherwise specified: Uncontrolled insulin-dependent DM 2 aortic stenosis status post TAVR PAD status post multiple lower extremity interventions HTN HLD CAD status post CABG A-fib on Eliquis carotid stenosis CODE STATUS: Full code DVT prophylaxis: Eliquis IP vs OBS Justification Based on differential dx, clinical care plan, and risk of adverse events, if untreated, in my clinical judgement this patient requires an acute care setting as: OBSERVATION because of an expectation of an under 2 midnight stay. Estimated length of stay (# of days): 2 Documented By: Edvin Casper MD 5 [id number] Signed By: <Electronically signed by Edvin Casper MD> 02/15/25 1106 [facility] Work Phone: 1(754) 522-507304-08-2025 [place] [address] Hospitalist H&P Signed Patient: Marimar Patel MR#: [id number] : 1955 Acct:[id number] Age/Sex: 69 / F Adm Date: 5 Loc: 3T Room: [address] [place] [address] Type: ADM INOo Attending Dr: Edvin Casper MD Copies to: MD Edvin Robins II, MD~ HPI DATE OF EXAMINATION: 02/15/25 CHIEF COMPLAINT: Abdominal pain, back pain, shortness of breath and weakness HISTORY OF PRESENT ILLNESS: Ms. Patel is a 69-year-old female with PMH of insulin-dependent DM 2, aortic stenosis status postTAVR, PAD status post multiple lower extremity interventions, HTN, HLD, CAD status post CABG, A-roscoeon Henry, carotid stenosis who presents to the emergency department today with multiple complaints. Mainly, patient was coming back from an eye appointment in [facility] when she started having right upper quadrant abdominal pain that came on all of a sudden, was sharp and increased to a 10/10 level very quickly. Patientdoes not normally follow-up here with her medical care. She presented to the [facility] urgent care, but she was too incapacitated by pain from the right side of her abdomen that she was not able to ambulate into the building. Squad was called as a result. Patient states she hasoccasional right-sided abdominal pain that she is able to rub and have go away a few times per week. This pain was higher in severity and thus she could not ignore it or rub it away. She denies any change in her stooling pattern, nausea, poor p.o. intake or other issues recently. She denies any sick contacts. She was with her when this occurred and thus they decided to call squad from [facility] urgent care parking lot. She does note no history of smoking, has had her gallbladder, appendix and uterus removed in the past. In the emergency department, patient's vital signs were largely within normal limits. CT imaging ofthe abdomen and pelvis noteworthy for no major acute findings. Patient has prominent atherosclerotic disease which is well-known anddocumented in the past. Chemistry noteworthy for anemia, with hemoglobin of 8.8and hyperkalemia of 5.6 with creatinine of 1.44. Patient was given 1 dose of Dilaudid and 1 L IV fluids. Unclear of patient's recent baseline at this time. Case was discussed with myself and ED attending and patient is admitted to hospital service for further management. Review of Systems Review of Systems Review of systems: 10 point ROS reviewed and is negative except for that which is noted above in the [facility] Medical History (Updated 02/15/25 @ 22:23 by Edvin Casper MD) Diabetes mellitus, type 2 Problem List clean-up per request of Phys. EHR Cmte Hypertension Problem List clean-up per request of Phys. EHR Cmte Hyperlipidemia Problem List clean-up per request of Phys. EHR Cmte Myocardial infarct Problem List clean-up per request of Phys. EHR Cmte Diverticulitis Problem List clean-up per request of Phys. EHR Cmte Carotid stenosis Problem List clean-up per request of Phys. EHR Cmte Surgical History H/O: hysterectomy Hx of aortic valve replacement 09/2022 Problem List clean-up per request of Phys. EHR Cmte H/O heart artery stent 2022 Problem List clean-up per request of Phys. EHR Cmte History of appendectomy Problem List clean-up per request of Phys. EHR Cmte Hx of hernia repair Problem List clean-up per request of Phys. EHR Cmte History of heart bypass surgery 2012 Problem List clean-up per request of Phys. EHR Cmte History of tonsillectomy Problem List clean-up per request of Phys. EHR Cmte History of cholecystectomy Problem List clean-up per request of Phys. EHR [facility] Family History (Updated 01/13/23 @ 12:00 by Isabela Ny RN) Other No significant family history Social History Smoking Status: Former smoker Substance Use Type: None Meds Medications and Allergies Allergies Penicillins Allergy (Unknown, Verified 05/19/24 08:26) Hives Home Medications apixaban 5 mg tablet (Eliquis) 5 mg PO BID 01/13/23 [History Confirmed 02/15/25] atorvastatin 80 mg tablet 80 mg PO DAILY 01/13/23 [History Confirmed 02/15/25] carvedilol 25 mg tablet 25 mg PO BID 01/13/23 [History Confirmed 02/15/25] citalopram 20 mg tablet 20 mg PO DAILY 01/13/23 [History Confirmed 02/15/25] furosemide 40 mg tablet 60 mg PO DAILY 01/13/23 [History Confirmed 02/15/25] gabapentin 300 mg capsule 300 mg PO BID 01/13/23 [History Confirmed 02/15/25] insulin regular human 100 unit/mL (3 mL) subcutaneous pen (Novolin R FlexPen) 10unit subcut TID.AC 01/13/23 [History Confirmed 02/15/25] lisinopril 20 mg tablet 20 mg PO DAILY 01/13/23 [History Confirmed 02/15/25] potassium chloride 20 mEq tablet,extended release(part/cryst) 20 meq PO DAILY 01/13/23 [History Confirmed 02/15/25] clopidogrel 75 mg tablet 75 mg PO DAILY 05/18/24 [History Confirmed 02/15/25] amlodipine 10 mg tablet 10 mg PO DAILY 02/15/25 [History Confirmed 02/15/25] hydralazine 25 mg tablet 25 mg PO BID 02/15/25 [History Confirmed 02/15/25] hydralazine 50 mg tablet 50 mg PO BID 02/15/25 [History Confirmed 02/15/25] insulin glargine 100 unit/mL (3 mL) subcutaneous pen (Lantus Solostar U-100 Insulin) 80 unit subcutHS 02/15/25 [History Confirmed 02/15/25] loratadine 10 mg tablet (Allergy Relief (loratadine)) 10 mg PO DAILY 02/15/25 [History Confirmed 02/15/25] multivitamin (Daily Multi-Vitamin tablet) 1 tab PO DAILY 02/15/25 [History Confirmed 02/15/25] Exam Physical Exam Vital Signs: Temp Pulse Resp BP Pulse Ox O2 Del Method 97.9 F 64 18 162/69 H 95 Room Air 02/15/25 20:20 02/15/25 20:20 02/15/25 20:20 02/15/25 20:20 02/15/25 20:20 02/15/25 20:45 Narrative: Constitutional: Middle-aged WF, resting in bed comfortably HEENT: Moist mucous membranes, neck supple Cardiovascular: RRR, no M/R/G, normal S1 and S2, no JVD Respiratory: Lungs clear to auscultation bilaterally, no wheezes, rales or rhonchi GI: Soft, NTND, normoactive bowel sounds : Deferred Neuro: AAO x3, no focal deficits. CN III-VII grossly intact, Strength 5/5 throughout Extremities: No clubbing, cyanosis or edema Psych: Patient calm, cooperative and conversant Results - Hospitalist H&P Lab Results Labs: Laboratory Last Values Corrected WBC 10.6 X10E3/uL (3.8-11.6) 02/15/25 14:30 Uncorrected WBC Count 10.6 x10E3/uL (3.8-11.6) 02/15/25 14:30 RBC 3.11 x10E6/uL (3.60-5.00) L 02/15/25 14:30 Hgb 8.8 g/dL (11.8-15.4) L 02/15/25 14:30 Hct 26.9 % (34.0-46.4) L 02/15/25 14:30 MCV 86.5 fl (80-100) 02/15/25 14:30 MCH 28.4 pg (24.7-34.3) 02/15/25 14:30 MCHC 32.8 g/dL (32.0-35.0) 02/15/25 14:30 RDW 16.6 % (11.9-15.3) H 02/15/25 14:30 Plt Count 184 x10E3/uL (150-450) 02/15/25 14:30 MPV 9.2 fl (6.3-10.7) 02/15/25 14:30 Neut % (Auto) 65.2 % (.) 02/15/25 14:30 Lymph % (Auto) 21.3 % (.) 02/15/25 14:30 [place] % (Auto) 9.1 % (.) 02/15/25 14:30 Eos % (Auto) 3.4 % (.) 02/15/25 14:30 Baso % (Auto) 1.0 % (.) 02/15/25 14:30 Nucleat RBC Rel Count 0.0 /100 WBC (0-0.5) 02/15/25 14:30 Neut # (Auto) 6.9 x10E3/uL (1.8-7.7) 02/15/25 14:30 Lymph # (Auto) 2.3 x10E3/uL (1.00-4.8) 02/15/25 14:30 [place] # (Auto) 1.0 x10E3/uL (0.0-0.8) H 02/15/25 14:30 Eos # (Auto) 0.4 x10E3/uL (0.0-0.45) 02/15/25 14:30 Baso # (Auto) 0.1 x10E3/uL (0.0-0.2) 02/15/25 14:30 Monocyte Dist Width 18.23 % (0.00-20.00) 02/15/25 14:30 PHA Creatinine Clear 36.12 02/15/25 14:30 Sodium 132 mmol/L (136-145) L 02/15/25 14:30 Potassium 5.2 mmol/L (3.5-5.1) H 02/15/25 14:30 Chloride 98 mmol/L (98-107) 02/15/25 14:30 Carbon Dioxide 25.8 mmol/L (21.0-31.0) 02/15/25 14:30 Anion Gap 13.4 mEq/L (6.0-15.0) 02/15/25 14:30 BUN 42 mg/dL (7-25) H 02/15/25 14:30 Creatinine 1.44 mg/dL (0.60-1.20) H 02/15/25 14:30 Est GFR (CKD-EPI) 39.128 mL/Min 02/15/25 14:30 Glucose 371 mg/dL (70-100) H 02/15/25 14:30 POC Glucose 377 mg/dl 02/15/25 20:50 POC Glucose Comment Glu2: cleaned meter 02/15/25 20:50 Calcium 9.4 mg/dL (8.6-10.3) 02/15/25 14:30 Total Bilirubin 0.4 mg/dl (0.3-1.0) 02/15/25 14:30 AST 17 U/L (13-39) 02/15/25 14:30 ALT 15 U/L (7-52) 02/15/25 14:30 Alkaline Phosphatase 73 U/L (34-104) 02/15/25 14:30 Total Creatine Kinase 61 U/L (30-223) 02/15/25 14:30 Troponin I High Sens 11 ng/L (0-15) 02/15/25 14:30 B-Natriuretic Peptide 278.0 pg/mL (5-100) H 02/15/25 14:30 Total Protein 6.6 gm/dL (6.4-8.9) 02/15/25 14:30 Albumin 3.9 gm/dL (3.5-5.7) 02/15/25 14:30 Globulin 2.7 gm/dL 02/15/25 14:30 Albumin/Globulin Ratio 1.4 02/15/25 14:30 Lipase 41.0 U/L (11.0-82.0) 02/15/25 14:30 SARS-CoV-2 Rap RNA(RT-PCR) Negative (Negative) 02/15/25 14:13 Microbiology Results Micro: Microbiology - Results from entire visit 02/15/25 14:13 Nasopharyngeal SARS-CoV-2, Influenza & RSV (PCR) - Final Assessment & Plan Assessment/Plan (1) Abdominal pain: Plan Abdominal pain Nonspecific. Patient had severe right upper quadrant abdominal pain that came on suddenly and then resolved in the ED after pain medication was given. CT of the abdomen and pelvis does not demonstrate any acute issues such as renal stone, biliary issue or other clear etiology of symptoms. Will continue to monitor overnight to see if symptoms resolve. Patient is a vasculopath and I dobelieve AAA would be visualized on CT imaging of the abdomen and pelvis, but will obtain ultrasound specifically to rule out AAA. Otherwise supportive care Normocytic anemia Patient does note chronic fatigue and weakness. Hemoglobin 8.8. She is maintained on blood thinners. No acute evidence of bleeding at this time. Patient does not have any recent lab work here. - Obtain iron studies - Replete iron, B12, folate as needed Other chronic medical conditions noted below, continue home regimens unless otherwise specified: Uncontrolled insulin-dependent DM 2 aortic stenosis status post TAVR PAD status post multiple lower extremity interventions HTN HLD CAD status post CABG A-fib on Eliquis carotid stenosis CODE STATUS: Full code DVT prophylaxis: Eliquis IP vs OBS Justification Based on differential dx, clinical care plan, and risk of adverse events, if untreated, in my clinical judgement this patient requires an acute care setting as: OBSERVATION because of an expectation of an under 2 midnight stay. Estimated length of stay (# of days): 2 Documented By: Edvin Casper MD [id number] Signed By: 02/15/252222 [facility]04-08-2025 Evaluation note* Diagnosis Onset Date Resolution Status Admit Date Abdominal pain acute February 15, 2025 6:24pm Weakness acute February 15 6:24pm [facility] Work Phone: 1(688) 331-413304-08-2025 [facility] [place] [address] [place], [place] [id number] CT Scan Report Signed Patient: Marimar Patel MR#: [id number] : 1955 Acct:[id number] Age/Sex: 69 / F ADM Date: 5 Loc: 3T Room: [address] [place] [address] Type: ADM INOo Attending Dr: Edvin Casper MD Copies to: MD Ross Higgins APRN~ Ordering Provider: Ross Martinez APRN Date of Service: 02/15/25 CT/CT abdomen pelvis w con: back pain CT ABDOMEN AND PELVIS WITH CONTRAST COMPARISON: None CLINICAL DATA: Back pain and spasms. Spiral images were obtained through the abdomen and pelvis following 90 mL [id number]-300. This CT examwas performed using one or more following dose reduction techniques: Automated exposure control, adjustment of the mA and/or kVaccording to patient size, or use of iterative reconstruction technique. Limited cuts through the lung bases show minor atelectasis or scarring. There is a tiny hiatal hernia. There is minimal focal fat within the liver near the fossa of the ligamentum teres. The gallbladderis surgically absent. No common duct stones are noted. The spleen, pancreas and adrenal glands showno acute abnormalities. There are symmetric renal nephrograms, without hydronephrosis. A parapelviccyst is seen at the midpole on the left measuring approximately 2.4 cm. There is prominent atherosclerotic plaque involving the aorta, iliac and some ofthe visceral arteries. A few small lymph nodes are visualized. No ascites is seen. There is moderate fluid and food debris within the stomach. No dilated small bowel loops are present. Mild stool is visualized within the ascending and transverse colon. There are postoperative changes suggesting supraumbilicalventral hernia repair. There is lumbar levoscoliotic curvature. No acute compression fractures are visualized. There is degenerative change with disc space narrowing, greatest at L3-4, endplate spurring and mild lower lumbar facethypertrophy. Images through the pelvis show normal caliber small bowel loops. There is a sigmoid anastomosis. There is mild distal colonic stool. No diverticular disease is noted. There is prior appendectomy and hysterectomy. The urinary bladder is poorly distended and the wall appears thickened. There is no ascites. A tiny umbilical hernia is visualized containing fat. CT/CT abdomen pelvis w con IMPRESSION: NO BOWEL OR URINARY TRACT OBSTRUCTION. LEFT RENAL CYST. PROMINENT ATHEROSCLEROTIC DISEASE. MILD SCOLIOSIS AND DEGENERATIVE CHANGES AT THE SPINE. NO ACUTE FINDINGS. Impression dictated by: Manjula Flannery M.D.02/15/2025 4:03 PM Dictation Location: [place] [address] Transcribed By: [facility] 02/15/25 1603 Dictated By: Manjula Flannery MD 02/15/25 1554 Signed By: 02/15/25 1602 [facility] Work Phone: [phone] Discharge summary Author Edvin Casper [facility] Note Date/Time February 16, 2025 1:03 pm [facility] [address] [place] [address] Discharge Summary Signed Patient: Marimar Patel MR#: [id number] : 1955 Acct:[id number] Age/Sex: 69 / F Adm Date: 5 Loc: Room: [address] [place] [address]: Edvin Casper MD Copies to: MD Edvin Robins II, MD~ Providers Date of Discharge: 02/16/25 Discharging Provider: Edvin Casper Primary Care Provider: Nik Bell Consults: 02/15/25 21:27 Consult to Occupational Therapy Routine Comment: Physician Instructions: Consult to OT for:: Evaluation and Treat Consult to Physical Therapy Routine Comment: Physician Instructions: Consult to PT for:: Evaluation and Treat Discharge Diagnosis (1) Abdominal pain: (2) Peripheral artery disease: (3) Diabetes mellitus, type 2: (4) Hypertension: (5) Hyperlipidemia: (6) Carotid stenosis: (7) Musculoskeletal pain: Final Diagnosis Final Discharge Diagnosis: As above Summary Hospital Course Hospital course: Ms. Patel is a 69-year-old female with PMH of insulin-dependent diabetes mellitus type 2, aortic stenosis status post TAVR, PAD status post multiple lower extremity interventions, HTN, HLD, CAD status post CABG, A-fib on Eliquis,carotid stenosis who presented to the emergency department with acute onset right upper quadrant 10/10 abdominal discomfort. She had no prodrome of symptoms just before the pain came on. She does chronically have pain in this area that she is normally able to rub away. She had no changes in her appetite, stooling pattern, had not been gaining or losing significant amount ofweight. In the emergency department, patient had CT imaging of the abdomen pelvis with contrast which did not demonstrate acute abnormality such as kidney stone, bowel issues or other acute findings. She has a history of cholecystectomy, hysterectomy and appendectomy in the past. She also underwent ultrasound AAA screen given her history of vascular disease, but this was also negative for acute findings. She had no further episodes of the right sided abdominal discomfort, and was recommended for discharge home. She is found to be very iron deficient and to have normocytic anemia. She was recommended oral supplementation with iron every other day (325 mg ferrous sulfate). She was encouraged to eat iron rich foods. She was discharged with plan to follow-up with her primary care physician within 7 to 10 days. She was recommended [id number] treatments for her abdominal discomfort, as this was thought elder a musculoskeletal issue. She was discharged in stable condition to the care of her outside physicians. 35 minutes spent coordinating the discharge of this patient Time Spent with Patient Time spent providing/coordinating discharge services (# min): 35 Discharge Plan Discharge Plan Patient Disposition: Home Activity: No Activity Restriction and Ambulate as Tolerated Diet: Diabetic Instructions: Ferrous Sulfate, Anemia caused by low iron in adults - Discharge instructions, Good food sources of iron, Know your Meds Prescriptions: New ferrous sulfate 325 mg (65 mg iron) tablet 325 mg PO Q2D 30 Days Qty: 15 3RF diclofenac sodium [Voltaren Arthritis Pain] 1 % gel 4 g topical QID PRN (Reason: abdominal pain) Qty: 100 1RF Rx Instructions: Apply to abdominal wall Continued furosemide 40 mg tablet 60 mg PO DAILY Patient Comments: TAKE 1 TABLET BY MOUTH EVERY DAY atorvastatin 80 mg tablet 80 mg PO DAILY Patient Comments: TAKE 1 TABLET BY MOUTH EVERY DAY carvedilol 25 mg tablet 25 mg PO BID lisinopril 20 mg Tablet 20 mg PO DAILY citalopram 20 mg tablet 20 mg PO DAILY Patient Comments: TAKE 1 TABLET BY MOUTH ONCE DAILY potassium chloride 20 mEq tablet,ER particles/crystals 20 meq PO DAILY Patient Comments: TAKE 1 TABLET BY MOUTH EVERY DAY WITH FOOD gabapentin 300 mg capsule 300 mg PO BID Patient Comments: TAKE 1 CAPSULES BY MOUTH TWICE DAILY Novolin R FlexPen 100 unit/mL (3 mL) Insulin Pen 10 unit SUBCUT TID.AC Rx Instructions: if less then 150 does not take insulin if its greater the 150 takes 10units Eliquis 5 mg tablet 5 mg PO BID hydralazine 25 mg tablet 25 mg PO BID Patient Comments: takes with 25mg to equal 75mg hydralazine 50 mg tablet 50 mg PO BID insulin glargine [Lantus Solostar U-100 Insulin] 100 unit/mL (3 mL) insulin pen 80 unit SUBCUT HS amlodipine 10 mg tablet 10 mg PO DAILY multivitamin [Daily Multi-Vitamin] Tablet 1 tab PO DAILY loratadine [Allergy Relief (loratadine)] 10 mg tablet 10 mg PO DAILY clopidogrel 75 mg tablet 75 mg PO DAILY Follow Up: Nik Bell II, MD [Primary Care Provider] - (Hospital follow up appointment.Please call and reschedule if needed. ) Continuity of Care Document Health Concerns: A [facility] screening has identified you as FRAIL or AT RISK FOR FRAILTY. This puts you at a higher risk for infection, illness, falls,and other injuries. Here are four ways to help you reduce your risk of frailty: 1. IDENTIFY EARLY SIGNS OF FRAILTY ? Discuss contributing factors and concerns with your doctor 2. BE ACTIVE ? Walking and light strengthening exercises will help reduce weakness 3. EAT WELL ? Aim for three healthy meals a day that are high in protein 4. THINK POSITIVE ? Keep your mind active by being sociable and continuing to learn References: Stay Strong: Four Ways to Beat the Frailty Risk [email or web address].org/health/heaybpwb-mmf-xqnjxgoahc/wywy-bfsotu-spgh- dcqv-em-jftu-wzo-hcmhxms-yugg Exam Physical Exam Vital Signs: Temp Pulse Resp BP Pulse Ox O2 Del Method 98.0 F 68 16 152/67 H 93 L Room Air 02/16/25 07:53 02/16/25 07:53 02/16/25 07:53 02/16/25 07:53 02/16/25 07:53 02/16/25 08:00 Narrative: Constitutional: Middle-aged WF, resting in bed comfortably HEENT: Moist mucous membranes, neck supple Cardiovascular: RRR, no M/R/G, normal S1 and S2, no JVD Respiratory: Lungs clear to auscultation bilaterally, no wheezes, rales or rhonchi GI: Soft, obese, nontender abdomen, normoactive bowel sounds : Deferred Neuro: AAO x3, no focal deficits. CN III-VII grossly intact, Strength 5/5 throughout Extremities: No clubbing, cyanosis or edema Psych: Patient calm, cooperative and conversant Diagnostic Studies Completed and Pending Studies Labs on day of discharge: 02/16/25 11:04: POC Glucose 254 02/16/25 06:20: POC Glucose 170, POC Glucose Comment Glu2: cleaned meter 02/16/25 05:47: Corrected WBC 8.8, Uncorrected WBC Count 8.8, RBC 2.87 L, Hgb 8.2 L, Hct 24.7 L, MCV 85.9, MCH 28.4, MCHC 33.0, RDW 16.4 H, Plt Count 166, MPV8.9, Neut % (Auto) 57.2, Lymph % (Auto) 25.6, [place] % (Auto) 12.6, Eos % (Auto) 3.3, Baso % (Auto) 1.3, Nucleat RBC Rel Count 0.0, Neut # (Auto) 5.0, Lymph # (Auto) 2.3, [place] # (Auto) 1.1 H, Eos # (Auto) 0.3, Baso # (Auto) 0.1, PHA Creatinine Clear 36.01, Sodium 137, Potassium 4.9, Chloride 105, Carbon Dioxide 26.2, Anion Gap 10.7, BUN 48 H, Creatinine 1.44 H, Est GFR (CKD-EPI) 39.128, Glucose 142 H D, Estimat Average Glucose 194, Hemoglobin A1c 8.4 H, Calcium 8.3 L, Iron 45 L, TIBC 433, Iron Saturation 10.4 L, Transferrin 309, Ferritin 13.5, Total Bilirubin 0.3, AST 17, ALT 15, Alkaline Phosphatase 64, Total Protein 5.9 L, Albumin 3.8, Globulin 2.1, Albumin/Globulin Ratio 1.8, Triglycerides 327 H, Cholesterol 119 L, LDL Cholesterol, Calc 26, VLDL Cholesterol 65, HDL Cholesterol 28, Cholesterol/HDL Ratio 4.3, Vitamin B12 831, Folate 28.0, TSH 3rdGeneration 1.17 02/15/25 23:50: COVID-19 Clin Com Not detected 02/15/25 22:35: Urine Color Yellow, Urine Appearance Clear, Urine pH 5.0, Ur Specific [place] 1.044 H, Urine Protein Negative, Urine Glucose (UA) 150 H, Urine Ketones Negative, Urine Occult Blood Negative, Urine Nitrite Negative, Urine Bilirubin Negative, Urine Urobilinogen Normal, Ur Leukocyte Esterase Negative 02/15/25 20:50: POC Glucose 377, POC Glucose Comment Glu2: cleaned meter 02/15/25 14:30: Corrected WBC 10.6, Uncorrected WBC Count 10.6, RBC 3.11 L, Hgb 8.8 L, Hct 26.9 L, MCV 86.5, MCH 28.4, MCHC 32.8, RDW 16.6 H, Plt Count 184, MPV9.2, Neut % (Auto) 65.2, Lymph % (Auto) 21.3, [place] % (Auto) 9.1, Eos % (Auto) 3.4, Baso % (Auto) 1.0, Nucleat RBC Rel Count 0.0, Neut # (Auto) 6.9, Lymph # (Auto) 2.3, [place] # (Auto) 1.0 H, Eos # (Auto) 0.4, Baso # (Auto) 0.1, Monocyte Dist Width 18.23, PHA Creatinine Clear 36.12, Sodium 132 L, Potassium 5.2 H, Chloride 98, Carbon Dioxide 25.8, Anion Gap 13.4, BUN 42 H, Creatinine 1.44 H, Est GFR (CKD-EPI) 39.128, Glucose 371 H, Calcium 9.4, Total Bilirubin 0.4, AST 17, ALT 15, Alkaline Phosphatase 73, Total Creatine Kinase 61, Troponin I High Sens 11, B-Natriuretic Peptide 278.0 H, Total Protein 6.6, Albumin 3.9, Globulin2.7, Albumin/Globulin Ratio 1.4, Lipase 41.0 02/15/25 14:13: SARS-CoV-2 Rap RNA(RT-PCR) Negative Documented By: Edvin Casper MD 5 1241 Signed By: <Electronically signed by Edvin Casper MD> 02/16/25 1308 [facility] Work Phone: [phone]) 381-687804-08-2025 NoteRight Eye Quality was good. Scan locations included subfoveal. Progression has been stable. Findings include normal observations. Left Eye Quality was good. Scan locations included subfoveal. Progression has been stable. Findings include normal observations. Notes Good scan with normal appearanceBarnes-Jewish West County [id number] History of Present illness Narrative* Teena Delcid DO - 02/15/2025 10:00 AM EDT Images from the original note were not included. 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 Stable. - sees ANGEL Hernandez in [place] for antiVEGF both eyes (OU). - Diabetes Mellitus with signs of diabetic retinopathy on dilated retinal examination today OU: Discussed the pathophysiology of diabetes and its effect on the eye. Stressed the importance of strong glucose control. Advised of importance of at least yearly dilated examinations, but to contact us imm ediately for any problems or concerns. Continue aggressive control of the blood sugar, blood pressure and cholesterol. Epiretinal membrane (ERM) of both eyes - The condition and pathophysiology were described to the patient. An epiretinal membrane (ERM) hasthe potential to influence quality of vision including acuity as well as metamorphopsia. Advised observation at this time. Dry eyes - Dry Eyes OU -- Environmental changes to minimize dryness and exposure and the use of artificial tears were recommended. documented in this encounterBarnes-Jewish West County [id number] Telephone encounter Note* Telephone Encounter - FAITH Holcomb - 02/03/2025 11:09 AM EDT Dexcom sensor sent. NOMS [id number] Miscellaneous Notes* Telephone Encounter - FAITH Holcomb - 02/03/2025 11:09 AM EDT Dexcom sensor sent. documented in this encounterBarnes-Jewish West County [id number] Evaluation note* Type Assessment Date assessment Type 2 diabetes emelia itus 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 macular edema, bilateral impression Type 2 diabetes emelia itus 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 macular edema, bilateral: [id number]. Bilateral. Condition: established, stable OD, active/worsening OS [facility] Work Phone: [phone] History of Present illness Narrative* Encounter Date Complaint History Of Prese nt Illness DM with PDR without ME The 69 ye ar old female presents for 6 week evaluation of DM with PDR without ME in the right and left eyes. Patient states she recently got new glasses, which she says helps, especially when reading. Patient denies any floaters or flashes of light. DM with PDR without ME The 69 ye ar old female presents for 6 week evaluation of DM with PDR without ME in the right and left eyes. Patient states since her last visit she has had cataract surgery OU. PAtient states her vision is much better and that she only occasionally see's floaters, denies any flashes of light. PDR The 69 year old female presents for treatment of PDR in the right eye and left eye. Pt states that her vision seems to be a little cloudy today and states that it is also watery every day. Pt denies flashing lights or ocular pain. DM with PDR without ME The 69 [...] bandage. 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 Patient denies any pain [...] eye. denies new vision change The pat jacqueline denies new vision change in the right [...] described as blurring. Patient denies eye pain. [facility] Work Phone: [phone] Instructions* Date Instruction Additional Infor dimple Impression/Plan Related to Type 2 diabetes mellitus 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 macular edema, bilateral Impression/Plan Related to Type 2 diabetes mellitus 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 macular edema, bilateral Impression/Plan Related to Prese nce of intraocular lens Impression/Plan Related to PCO ( posterior capsular opacification), bilateral Impression/Plan Related to Combi robin forms of age-related cataract, bilateral Impression/Plan Related to Type 2 diabetes mellitus 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 macular edema, bilateral Impression/Plan Related to Type 2 diabetes mellitus 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 macular edema, bilateral Impression/Plan Related to Type 2 diabetes mellitus 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 macular edema, bilateral Impression/Plan Related to Combi robin forms of age-related cataract, bilateral Impression/Plan Related to Vitre ous hemorrhage, bilateral Return in 1 week rasheeda Corcoran MD for POFU OS/ OCT OU [...] ous hemorrhage, left eye Impression/Plan Related to Hyper tension [...] without macular edema, bilateral Impression/Plan Related to Type 2 diabetes mellitus 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 macular edema, bilateral Impression/Plan Related to Type 2 diabetes mellitus with mild nonproliferative diabetic retinopathy without macular edema, right eye Impression/Plan Related to Catar act, Nuclear Sclerosis OU Impression/Plan Related to Hyper tension Return in 4 months Related to Ty [...] of right eye [facility] Work Phone: [phone]) 359-631902-20-2025 History of Present illness Narrative* Johnna Cedeño, MANAGER RESOURCE - 12/30/2024 1:00 PM EST Images from the original note were not included. Subjective Patient ID: Marimar Patel is a 69 y.o. female who presents for A1c F/U Marimar presents today for an A1c F/U/ Last A1c in Sep 2024 was 9.5. Diabetes She presents for her follow-up diabetic visit. She has type 2 diabetes mellitus. Her disease coursehas been stable. Hypoglycemia symptoms include headaches and hunger. Associated symptoms include polydipsia. Symptoms are stable. Diabetic complications include heart disease. Risk factors for coronary artery disease include diabetes mellitus and post-menopausal. Current diabetic treatment includesinsulin injections. She is compliant with treatment all of the time. She is following a diabetic and generally healthy diet. Meal planning includes avoidance of concentrated sweets. Her breakfast blood glucose is taken between 7-8 am. Her breakfast blood glucose range is generally 140-180 mg/dl. Her bedtime blood glucose is taken between 10-11 pm. Her bedtime blood glucose range is generally >200 mg/dl. An SCOTT inhibitor/angiotensin II receptor chasity is being taken. She sees a metal patternmaker apprentice.Eye exam is current (had cataract surgery). Current Outpatient Medications on File Prior to [...] before bedtime. citalopram (CeleXA) 20 MG tablet Take 1 tablet (20 mg) by mouth Daily 100 tablet 2 clopidogrel (Plavix) 75 MG tablet Continuous Blood Gluc Sensor (Dexcom G7 Sensor) misc 1 Disk Every 10 (ten) days 3 each 11 Continuous Glucose Pomology Teacher (Dexcom G7 Pomology Teacher) device 1 Device yearly 1 each 0 [...] by mouth in the morning and 1 capsule(300 mg) before bedtime. 180 capsule 3 hydrALAZINE (Apresoline) 50 MG tablet insulin glargine (Basaglar KwikPen) 100 UNIT/ML pen Inject 75 Units under the skin at bedtime 24 mL11 insulin pen needle (B-D ULTRAFINE III SHORT [...] solution Take 3 mL by nebulization in themorning and 3 mL in the evening and 3 mL before bedtime. 180 mL 11 ketorolac (Acular) 0.5 % ophthalmic solution lisinopril 20 MG tablet Take 20 mg by mouth LORazepam (Ativan) 0.5 MG tablet Take 0.5 mg by mouth every 8 (eight) hours if needed potassium chloride CR (Klor-Con M20) 20 MEQ ER tablet Take 1 tablet (20 mEq) by mouth Daily 90 tablet 0 prednisoLONE acetate (Pred-Forte) 1 [...] Cigarettes Smokeless tobacco: Never Vaping Use Vaping status: Unknown Substance Use Topics Alcohol use: Never Drug use: Defer Family History Problem Relation Name Age of Onset Diabetes Other Hypertension Other Past Medical History: Diagnosis Date A-fib ([facility]) 2022 with RVR Anxiety Aortic stenosis 06/2022 Carotid artery disease ([facility]) Cataract CHF (congestive heart failure) ([facility]) 06/2022 Colon polyp 2016 Diverticulitis DM (diabetes mellitus) ([facility]) HLD (hyperlipidemia) ([facility]) HTN (hypertension) ([facility]) [place] (myocardial infarction) ([facility]) NSTEMI, initial episode of care ([facility]) 2022 Retinal hemorrhage Past Surgical History: Procedure [...] Vitals Smoking Status Former Review of Systems Neurological: Positive for headaches. Endocrine: Positive for polydipsia. Objective Physical Exam Vitals reviewed. Constitutional: Appearance: Normal appearance. HENT: Head: Normocephalic. Mouth/Throat: Mouth: Mucous membranes are moist. Pharynx: Oropharynx is clear. Eyes: Conjunctiva/sclera: Conjunctivae normal. Cardiovascular: Rate and Rhythm: Normal rate and regular rhythm. Pulmonary: Effort: Pulmonary effort is normal. Skin: General: Skin is warm and dry. Neurological: General: No focal deficit present. Mental Status: She is alert and oriented to person, place, and time. Psychiatric: Mood and Affect: Mood normal. Behavior: Behavior normal. Thought Content: Thought content normal. Assessment/Plan Diagnoses and all orders for this visit: Paroxysmal atrial fibrillation ([facility]) - dabigatran etexilate (Pradaxa) 150 MG capsule; Take 1 capsule (150 mg) by mouth in the morning and 1 capsule (150 mg) before bedtime. Do not crush or chew.. - dapagliflozin (Farxiga) 10 MG; Take 1 tablet (10 mg) by mouth Daily This is a chronic medical condition that is stable since last assessment. No changes in treatment are suggested at this time. Benign essential hypertension (CMS/HCC) - potassium chloride CR (Klor-Con M20) 20 MEQ ER tablet; Take 1 tablet (20 mEq) by mouth Daily Patient's blood pressure is currently well controlled. Continue with current medications and I willcontinue to monitor. Goal BP remains less than 130/80. Type 2 diabetes mellitus with hyperglycemia, with long-term current use of insulin (CMS/HCC) - POCT glycosylated hemoglobin (Hb A1C) docked device - insulin glargine (Lantus) 100 UNIT/ML pen; Inject 80 Units under the skin at bedtime - dapagliflozin (Farxiga) 10 MG; Take 1 tablet (10 mg) by mouth Daily We discussed today, the importance of proper [...] control with the patient. If the patient stillhas questions on this, a referral to a Dietitian can be arranged. I reviewed medications that aid in diabetic control. We discussed proper dosing and educated the patient on possible side effects andcomplications. The patient verbalized understanding of these instructions. Will add farxiga. Spoke to advocate and she will assist patient in getting this medication. 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 No changes in treatment are suggested at this time. S/P CABG x 4 This is a chronic medical condition that is stable since last assessment. No changes in treatment are suggested at this time. Encounter for screening mammogram for malignant neoplasm of breast - Bilateral screening mammogram; Future Await results No follow-ups on file. documented in this encounterBarnes-Jewish West County [id number] History of Present illness Narrative* Alexis Gilmore, LAMARM - 12/30/2024 11:00 AM EST Patient: Marimar Patel : 1955 PCP: Nik Bell MD SUBJECTIVE Pt presents today for follow up of right heel spur with achilles tendonitis. Pt has had previous treatment of 1st steroid injection, nsaids, and walking boot with intermittent relief. Patient states painful ambulation in shoe gear it is unable to use the walking boot secondary to back issues Pt states current pain on a 1-10 scale is a 7 Pt presents to day for follow up tx. Patient is DM2 with hx of PVD and [facility] vascular intervention in the past. Allergies: Allergies Allergen Reactions Penicillins Hives and Unknown childhood-swelling Past Medical History: Past Medical History: Diagnosis Date A-fib ([facility]) 2022 with RVR Anxiety Aortic stenosis 06/2022 Carotid artery disease ([facility]) Cataract CHF (congestive heart failure) ([facility]) 06/2022 Colon polyp 2016 Diverticulitis DM (diabetes mellitus) ([facility]) HLD (hyperlipidemia) ([facility]) HTN (hypertension) ([facility]) [place] (myocardial infarction) ([facility]) NSTEMI, initial episode of care ([facility]) 2022 Retinal hemorrhage Medications: Current Outpatient Medications: [...] Disp: 3 each, Rfl: 11 Continuous Glucose Pomology Teacher (Dexcom G7 Pomology Teacher) device, 1 Device yearly, Disp: 1 each, [...] DIRECTED TO ADMINISTER INSULIN TWICE DAILY, Disp: 200each, Rfl: 3 ipratropium-albuterol (Duo-Neb) 0.5-2.5 mg/3 mL [...] 1 tablet (20 mEq) by mouth Daily, Disp:90 tablet, Rfl: 0 prednisoLONE acetate (Pred-Forte) 1 [...] Resource Strain: Low Risk (06/22/2024) Received from [place] [facility] Overall Financial Resource Strain (CARDIA) Difficulty of Paying Living Expenses: Not hard at all Food Insecurity: No Food Insecurity (12/03/2023) Received from [facility], [facility], [facility] Hunger Vital Sign Within the past 12 months, you worried that your food would run out before you got the money to buymore.: Never true Within the past 12 months, the food you bought just didn't last and you didn't have money to get more.: Never true Transportation Needs: No Transportation Needs (06/22/2024) Received from [facility] PRAPARE - Transportation Lack of Transportation (Medical): No Lack of Transportation (Non-Medical): No Physical Activity: Inactive (06/22/2024) Received from [facility] Exercise Vital Sign Days of Exercise per Week: 0 days Minutes of Exercise per Session: 0 min Stress: Stress Concern Present (12/03/2023) Received from [facility], [facility] [place] [facility] - Occupational Stress Questionnaire Feeling of Stress : To some extent Social Connections: Moderately Isolated (12/03/2023) Received from [facility], [facility] Social Connection and Isolation Panel [NHANES] Frequency of Communication with Friends and Family: More than three times a week Frequency of Social Gatherings with Friends and Family: More than three times a week Attends Restorationist Services: Never Active Member of Clubs or Organizations: No Attends Club or Organization Meetings: Never Marital Status: Intimate Partner Violence: Not At Risk (12/03/2023) Received from [facility], [facility] Humiliation, Afraid, Rape, and Kick questionnaire Fear of Current or Ex-Partner: No Emotionally Abused: No Physically Abused: No Sexually Abused: No Housing Stability: Low Risk (06/22/2024) Received from [facility] Housing Stability Vital Sign Unable to [...] positive edema to left foot. NEURO: 5.07 [place] Truong monofilament test diminished to digits and forefoot bilaterally 125Hz tuning fork diminished to 1st MPJ bilaterally ORTHO: Positive pain on palpation to toenails of the left 1,2,3,4,5 toes and right 1,2,3,4,5 toes Flexion deformities digits 2 through 5 bilateral Positive pain on palpation of right retrocalcaneal bursa and Achilles with negative palpable [place] ASSESSMENT 1. Heel spur, right 2. Achilles tendinitis, right leg 3. Contracture of right ankle PLAN Pt to continue with ice to posterior right achilles region. Pt to take nsaids as needed PRN pain Patient may discontinue walking boot and moved accommodative shoe gear due to posterior heel spur Pt was given steroid injection to the right retrocalcaneal bursa under US guidance with visualization of injected fluid into area of concern per imaging. Injection consisted of a 2:1 mixture of xylocaine 2%plain and dexathesone 4mg for a total of 3ccs. Informed pt of risks and benefits of procedure including infection,damage or rupture to soft tissuestructures and steroid flare. This is the patients 2nd injection Pt understood and consented. Discussed conservative and surgical treatment options for patient today including postoperative time frame and surgical procedure in detail. Patient may continue with conservative treatments including [id number] anti- inflammatories and other treatments suggested today. Patient may want to be s cheduled for surgical intervention in the near future. Discussed possible Tenex procedure with right Achilles surgery in the future and possible physical therapy and discussed physical therapy needs detail and will reassess in 2 weeks Alexis Gilmore DPM documented in this encounterBarnes-Jewish West County [id number] NoteUT Cardiology - [facility] Subjective Marimar Patel is a 69 y.o. year old female patient being seen for 4 mo follow up CAD, PAF, PAD, and aortic valve stenosis s/p TAVR. Had labs a few days ago. Denies chest pain, SOB, palpitations, and bleeding on Eliquis. Patient Active Problem List Diagnosis Nonrheumatic aortic valve stenosis Coronary artery disease involving chicken ranch coronary artery of chicken ranch heart with angina pectoris (CMS/HCC) PAF (paroxysmal [...] (CMS/HCC) Vitreous hemorrhage of right eye (CMS/HCC) Mechanical complication of internal orthopedic device, implant or graft (CMS/HCC) Pseudophakia Family History Problem Relation Name Age of Onset Diabetes Mother Cancer Mother Heart disease Father Alcohol abuse Brother Diabetes Brother Social History Tobacco Use Smoking status: Former Types: Cigarettes Smokeless tobacco: Never Vaping Use Vaping status: Never Used Substance Use Topics Alcohol use: Never Drug use: Never HPI Marimar is seen in follow up. She is a 69-year-old woman with prior history of coronary artery [...] and stenting by vascular surgery Dr. Padilla. In June of 2024 she underwent left SFA balloon angioplasty and drug coated balloon angioplasty. She was [facility]08/20[facility] to [facility] with ?viral infection, weakness, low blood pressure, diarrhea and amlodipine, carvedilol, hydralazine, insulin and spironolactone were stopped. I resumed medications for hypertension on 05/10/2024. Today she is seen in follow-up. Her blood pressure has been elevated. She denies chest pain, palpitations and shortness of breath. She has no leg edema. Review of Systems Constitutional: Positive for malaise/fatigue. Cardiovascular: Positive for leg swelling. All other systems reviewed and are negative. Objective Visit Vitals BP 148/62 (BP Location: Right arm, Patient Position: Sitting) Pulse 61 Ht 1.575 m (5' 2 ) Wt 80.7 kg (178 lb) SpO2 95% BMI 32.56 kg/m??? OB Status Postmenopausal Smoking Status Former BSA 1.88 m??? Physical Exam Constitutional: Appearance: She is well-developed. She is not ill-appearing. HENT: Head: Normocephalic and atraumatic. Nose: Nose normal. Eyes: General: No scleral icterus. Pupils: Pupils are equal, round, and reactive to light. Neck: Thyroid: No thyromegaly. Vascular: Carotid bruit (left) present. No JVD. Cardiovascular: Rate and Rhythm: Normal rate and regular rhythm. Pulses: Radial pulses are 2+ on the right side and 0 on the left side (more content not included)...[facility]01-30-2025 History of Present illness Narrative* Alexis Gilmore, DPM - 12/09/2024 9:20 AM EST Patient: Marimar Patel : 1955 PCP: [...] History: Past Medical History: Diagnosis Date A-fib ([facility]) 2022 with RVR Anxiety Aortic stenosis 06/2022 Carotid artery disease ([facility]) Cataract CHF (congestive heart failure) ([facility]) 06/2022 Colon polyp 2016 Diverticulitis DM (diabetes mellitus) ([facility]) HLD (hyperlipidemia) ([facility]) HTN (hypertension) ([facility]) TN (myocardial infarction) ([facility]) NSTEMI, initial episode of care ([facility]) 2022 Retinal hemorrhage Medications: Current Outpatient Medications: [...] Disp: 3 each, Rfl: 11 Continuous Glucose Pomology Teacher (Dexcom G7 Pomology Teacher) device, 1 Device yearly, Disp: 1 each, [...] DIRECTED TO ADMINISTER INSULIN TWICE DAILY, Disp: 200each, Rfl: 3 ipratropium-albuterol (Duo-Neb) 0.5-2.5 mg/3 mL [...] 1 tablet (20 mEq) by mouth Daily, Disp:90 tablet, Rfl: 0 prednisoLONE acetate (Pred-Forte) 1 [...] Resource Strain: Low Risk (06/22/2024) Received from [facility] Overall Financial Resource Strain (CARDIA) Difficulty of Paying Living Expenses: Not hard at all Food Insecurity: No Food Insecurity (12/03/2023) Received from [facility], [facility], [facility] Hunger Vital Sign Within the past 12 months, you worried that your food would run out before you got the money to buymore.: Never true Within the past 12 months, the food you bought just didn't last and you didn't have money to get more.: Never true Transportation Needs: No Transportation Needs (06/22/2024) Received from [facility] PRAPARE - Transportation Lack of Transportation (Medical): No Lack of Transportation (Non-Medical): No Physical Activity: Inactive (06/22/2024) Received from [facility] Exercise Vital Sign Days of Exercise per Week: 0 days Minutes of Exercise per Session: 0 min Stress: Stress Concern Present (12/03/2023) Received from [facility], [facility] [place] [facility] [employer] - Occupational Stress Questionnaire Feeling of Stress : To some extent Social Connections: Moderately Isolated (12/03/2023) Received from [facility], [facility] Social Connection and Isolation Panel [NHANES] Frequency of Communication with Friends and Family: More than three times a week Frequency of Social Gatherings with Friends and Family: More than three times a week Attends Restorationist Services: Never Active Member of Clubs or Organizations: No Attends Club or Organization Meetings: Never Marital Status: Intimate Partner Violence: Not At Risk (12/03/2023) Received from [facility], [facility] Humiliation, Afraid, Rape, and Kick questionnaire Fear of Current or Ex-Partner: No Emotionally Abused: No Physically Abused: No Sexually Abused: No Housing Stability: Low Risk (06/22/2024) Received from [facility] Housing Stability Vital Sign Unable to [...] positive edema to left foot. NEURO: 5.07 [place] Truong monofilament test diminished to digits and forefoot bilaterally 125Hz tuning fork diminished to 1st MPJ bilaterally ORTHO: Positive pain on palpation to toenails of the left 1,2,3,4,5 toes and right 1,2,3,4,5 toes Flexion deformities digits 2 through 5 bilateral Positive pain on palpation of right retrocalcaneal bursa and Achilles with negative palpable [place] DIAGNOSTIC US REPORT: Verbal order for ultrasound [...] underlying condition with diabetic polyneuropathy, unspecified whether skilled nursing insulin use ([facility]) 3. Pain due to onychomycosis of toenails of both feet 4. Onychomycosis 5. PVD (peripheral vascular disease) ([facility]) 6. Achilles tendinitis, right leg 7. Contracture of right ankle PLAN Discussed proper foot care with patient today. Debride nails in length and thickness digits 1 through 10 Patient educated today on proper diabetic foot care including monitoring feet daily for any signs of infection openings in the skin or irregularities to both feet. Patient had a diabetic neurologicalexam today to both their feet and discussed proper shoe gear. Pt dispensed pneumatic CAM walker ([id number]) today to maintain 90 degree foot to ankle position. Pt informed to only remove walker when at rest or bathing. ABN signed and in chart for device if warranted. The boot was assembled and adjusted liner and straps and pneumatically inflated for proper customfitting by Alexis Gilmore DPM and staff. A [...] procedure including infection,damage or rupture to soft tissuestructures and steroid flare. This is the patients 1st injection Pt understood and consented. Alexis Gilmore DPM documented in this encounterBarnes-Jewish West County [id number] Evaluation note* Type Assessment Date assessment Type 2 diabetes emelia itus 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 macular edema, bilateral impression Type 2 diabetes emelia itus 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 macular edema, bilateral: E11.3593. Bilateral. Condition: established, stable OD, active/worsening OS assessment Presence of intraocular lens Oct assessment PCO (posterior capsular opacific ation), bilateral impression Presence of intraocular lens: Z9 6.1 impression PCO (posterior capsular opacific ation), bilateral: H26.493 [facility] Work Phone: 1(767) 138-691212-06-2024 History of Present illness Narrative* Teena Delcid, - 10/15/2024 10:15 AM EST Images from the original note were not included. Assessment/Plan Diagnoses and all orders for this visit: Pseudophakia - s/p CE OS (1mth): Patient should be close to off all post-op meds. Pt. received final refraction for this eye today. documented in this encounterBarnes-Jewish West County [id number] History of Present illness Narrative* FAITH Holcomb - 09/30/2024 10:30 AM EST Images from the original note were not included. Subjective Patient ID: Marimar Patel is a 69 y.o. female who presents for 1wk F/U for asthmatic bronchitis. Marimar presents today for a 1wk F/U for asthmatic bronchitis. At last office visit was Rx'D levofloxacin, medrol dose pack and duo neb. Patient states she is feeling much better. She still has a smallcough, but no shortness of breath. She never did get to use the duo neb due to insurance not payingfor it. Does periodically check her BP at home. Has been in 130's/60's mostly, occasionally top number is alittle higher. Drinks iced tea, at least a [...] (ten) days 3 each 11 Continuous Glucose Pomology Teacher (Dexcom G7 Pomology Teacher) device 1 Device yearly 1 each 0 [...] by mouth in the morning and 1 capsule(300 mg) before bedtime. 180 capsule 3 guaiFENesin-codeine (guaiFENesin AC) 100-10 MG/5ML syrup Take 5 mL by mouth 4 (four) times a day asneeded for cough for up to 10 days 120 mL 0 hydrALAZINE (Apresoline) 50 MG tablet insulin glargine (Basaglar KwikPen) 100 UNIT/ML pen Inject 75 Units under the skin at bedtime 24 mL11 insulin pen needle (B-D ULTRAFINE III SHORT [...] solution Take 3 mL by nebulization in themorning and 3 mL in the evening and [...] Other Past Medical History: Diagnosis Date A-fib ([facility]) 2022 with RVR Anxiety Aortic stenosis 06/2022 Carotid artery disease ([facility]) Cataract CHF (congestive heart failure) ([facility]) 06/2022 Colon polyp 2015 Diverticulitis DM (diabetes mellitus) ([facility]) HLD (hyperlipidemia) ([facility]) HTN (hypertension) ([facility]) TN (myocardial infarction) ([facility]) NSTEMI, initial episode of care ([facility]) 2022 Retinal hemorrhage Past Surgical History: Procedure [...] vaccination - Influenza, high-dose seasonal, quadrivalent, PF (IHP235) (Fluzone High Dose [place] 0.7mL dose) Afebrile today, and all recent symptoms resolved or improving. Provided pt with Flu shot today. Shetolerated this well. Hypotension, unspecified hypotension type Encouraged pt to increase her water intake. Reach out to Cardiology if bottom number of BP runs low Follow up in about 3 months (around 12/31/2024) for Diabetes. documented in this encounterBarnes-Jewish West County [id number] History of Present illness Narrative* Alexis Gilmore DPM - 09/30/2024 9:10 AM EST Patient: Marimar Patel : 1955 PCP: [...] states she had improvement from seeing this [facility] doctors with intervention and has follow up in the near future Patient was seen in [place] for vascular intervention in the past with hx of DM2 and PVD Patient states continued pain to the region and was to follow up with vascular surgeon at the [facility] and states that she did follow up [...] History: Past Medical History: Diagnosis Date A-fib ([facility]) 2022 with RVR Anxiety Aortic stenosis 06/2022 Carotid artery disease ([facility]) Cataract CHF (congestive heart failure) ([facility]) 06/2022 Colon polyp 2016 Diverticulitis DM (diabetes mellitus) ([facility]) HLD (hyperlipidemia) ([facility]) HTN (hypertension) ([facility]) TN (myocardial infarction) ([facility]) NSTEMI, initial episode of care ([facility]) 2022 Retinal hemorrhage Medications: Current Outpatient Medications: [...] Disp: 3 each, Rfl: 11 Continuous Glucose Pomology Teacher (Dexcom G7 Pomology Teacher) device, 1 Device yearly, Disp: 1 each, [...] DIRECTED TO ADMINISTER INSULIN TWICE DAILY, Disp: 200each, Rfl: 3 ipratropium-albuterol (Duo-Neb) 0.5-2.5 mg/3 mL [...] Resource Strain: Low Risk (06/22/2024) Received from [facility] Overall Financial Resource Strain (CARDIA) Difficulty of Paying Living Expenses: Not hard at all Food Insecurity: No Food Insecurity (12/03/2023) Received from [facility], [facility], [facility] Hunger Vital Sign Within the past 12 months, you worried that your food would run out before you got the money to buymore.: Never true Within the past 12 months, the food you bought just didn't last and you didn't have money to get more.: Never true Transportation Needs: No Transportation Needs (06/22/2024) Received from [facility] - Transportation Lack of Transportation (Medical): No Lack of Transportation (Non-Medical): No Physical Activity: Inactive (06/22/2024) Received from [facility] Exercise Vital Sign Days of Exercise per Week: 0 days Minutes of Exercise per Session: 0 min Stress: Stress Concern Present (12/03/2023) Received from [facility], [facility] [place] [facility] - Occupational Stress Questionnaire Feeling of Stress : To some extent Social Connections: Moderately Isolated (12/03/2023) Received from [facility], [facility] Social Connection and Isolation Panel [NHANES] Frequency of Communication with Friends and Family: More than three times a week Frequency of Social Gatherings with Friends and Family: More than three times a week Attends Restorationist Services: Never Active Member of Clubs or Organizations: No Attends Club or Organization Meetings: Never Marital Status: Intimate Partner Violence: Not At Risk (12/03/2023) Received from [facility], [facility] Humiliation, Afraid, Rape, and Kick questionnaire Fear of Current or Ex-Partner: No Emotionally Abused: No Physically Abused: No Sexually Abused: No Housing Stability: Low Risk (06/22/2024) Received from [facility] Housing Stability Vital Sign Unable to [...] positive edema to left foot. NEURO: 5.07 [place] Truong monofilament test diminished to digits and forefoot bilaterally 125Hz tuning fork diminished to 1st MPJ bilaterally ORTHO: Positive pain on palpation nails 1 through 10 Flexion deformities digits 2 through 5 bilateral ASSESSMENT 1. Dry gangrene ([facility]) 2. PVD (peripheral vascular disease) ([facility]) 3. Diabetes mellitus due to underlying condition with diabetic polyneuropathy, unspecified whether skilled nursing insulin use ([facility]) 4. Pain due to onychomycosis of toenails of both feet PLAN Discussed proper foot care with patient today. Debride nails in length and thickness digits 1 through 10 Patient educated today on proper diabetic foot care including monitoring feet daily for any signs of infection openings in the skin or irregularities to both feet. Patient had a diabetic neurologicalexam today to both their feet and discussed proper shoe gear. Alexis Gilmore DPM documented in this encounterBarnes-Jewish West County [id number] History of Present illness Narrative* Johnna Cedeño, OSORIO - 09/22/2024 9:30 AM EST Images from the original note were not included. Subjective Patient ID: Marimar Patel is a 69 y.o. female who presents for Diabetes. Pt has a cough for about three weeks , cough drops dayquil nyquil pt will cough to the point she asa sharp pain in her lower right side, pt has phlegm clear some brown,chest hurting, headaches, Pt forgot to take her medication today Diabetes She presents for her follow-up diabetic visit. She has type 2 diabetes mellitus. Her disease coursehas been stable. There are no hypoglycemic associated symptoms. There are no diabetic associated symptoms. There are no hypoglycemic complications. Symptoms are stable. Diabetic complications includenephropathy. Risk factors for coronary artery disease include [...] (ten) days 3 each 11 Continuous Glucose Pomology Teacher (Dexcom G7 Pomology Teacher) device 1 Device yearly 1 each 0 [...] Other Past Medical History: Diagnosis Date A-fib ([facility]) 2022 with RVR Anxiety Aortic stenosis 06/2022 Carotid artery disease ([facility]) Cataract CHF (congestive heart failure) ([facility]) 06/2022 Colon polyp 2016 Diverticulitis DM (diabetes mellitus) ([facility]) HLD (hyperlipidemia) ([facility]) HTN (hypertension) ([facility]) TN (myocardial infarction) ([facility]) NSTEMI, initial episode of care ([facility]) 2022 Retinal hemorrhage Past Surgical History: Procedure [...] orders for this visit: Acute asthmatic bronchitis ([facility]) - levoFLOXacin (Levaquin) 500 MG tablet; Take [...] Perles prn for cough. Increase water intake, getplenty of rest. Can take Tylenol prn for any discomfort or fever. No other anti-inflammatories while on steroid. Cough into elbow. Wash hands often. Advised patient that cough can linger with bronchitis. Follow up in our office if no improvement in one week. Type 2 diabetes mellitus with hyperglycemia, with long-term current use of insulin ([facility]) - POCT Glycated hemoglobin, total - insulin [...] recommended changes to reduce your blood sugars andminimize the risk of these complications. We discussed [...] be arranged. I reviewed medications that aid indiabetic control. We discussed proper dosing and educated the patient on possible side effects and complications. The patient verbalized understanding of these instructions. Polyneuropathy due to type 2 diabetes mellitus ([facility]) - gabapentin (Neurontin) 300 MG capsule; Take [...] mL by mouth 4 (four) times a dayas needed for cough for up to 10 days May use cough drops, drink warm liquids. Do not use the cough syrup when driving or operating equipment as it can make you tired. You can use the Tessalon Perles during the day. No follow-ups on file. documented in this [facility]10-29-2024 History of Present illness Narrative* Teena Delcid DO - 09/07/2024 11:00 AM EDT Images from the original note were not included. Assessment/Plan Diagnoses and all orders for this visit: Pseudophakia - s/p CE OS (POD #1): Patient provided with post-op form. Instructed to continue drops as well as shield. Instructed to call immediately with increased pain, redness, decreased vision, questions or concerns. documented in this [facility]10-22-2024 History of Present illness Narrative* Teena Delcid DO - 08/31/2024 8:45 AM EDT Images from the original note [...] different lens options were explained including the [id number] fees for any upgrades. Intraocular lens (IOL) [...] Extremities: no pitting edema. documented in this encounterBarnes-Jewish West County [id number] NoteCardiovascular Medicine [facility] SUBJECTIVE Chief Complaint Patient presents with Coronary [...] popliteal with good results by Dr. Curry. She has some FERNANDEZ with heavier exertion. This is unchanged for her. Denies c/o CP, orthopnea, PND, LE edema, dizziness/LH, palpitations, syncope. She is pending eye surgery. Both eye needs a new lens, one eye needs a new cataract. Patient Active Problem List Diagnosis Nonrheumatic aortic valve stenosis Coronary artery disease involving chicken ranch coronary artery of chicken ranch heart with angina pectoris ([facility]) PAF (paroxysmal atrial fibrillation) ([facility]) Essential hypertension PAD (peripheral artery disease) ([facility]) Numbness of left lower extremity Acute asthmatic bronchitis Asthma without status asthmaticus Acute combined systolic and diastolic heart failure ([facility]) Arteriosclerosis of arterial coronary artery bypass graft Atrophic gastritis Cataract mature, total senile Chest pain Chondrocalcinosis Chronic ulcer of left foot with fat layer exposed ([facility]) Dehiscence of operative wound Diabetes mellitus ([facility]) Diabetic foot ulcer ([facility]) Diverticulosis of colon Dry gangrene ([facility]) Estrogen deficiency Generalized anxiety disorder History of hysterectomy IBS (irritable bowel syndrome) Migraine Hypercholesterolemia Infection of bone ([facility]) Osteopenia Overweight Pain in soft tissues of limb Polyneuropathy due to type 2 diabetes mellitus ([facility]) Poorly controlled diabetes mellitus ([facility]) Proliferative diabetic retinopathy associated with type 2 diabetes mellitus ([facility]) 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 associated with type 2 diabetes mellitus ([facility]) Staphylococcal infectious disease Type 2 diabetes mellitus with hyperglycemia ([facility]) Type 2 diabetes mellitus without complication ([facility]) Vitreous hemorrhage of right eye ([facility]) Past Medical History: Diagnosis Date A-fib ([facility]) Aortic valve stenosis Coronary artery disease Diabetes mellitus ([facility]) Hypertension Peripheral vascular disease ([facility]) Family History Problem Relation Name Age of [...] 20 mEq by west (more content not included)...[facility] Note Patient here for 3 mo follow up aortic valve stenosis s/p TAVR, CAD, PAF, and PAD. She underwent vascular surgery at in Jun 2024. No labs since then. Denies chest pain, SOB, palpitations, and bleeding on Eliquis. Review of Systems Cardiovascular: Positive for leg swelling (LLE, resolves by morning). Neurological: Positive for numbness. All other systems reviewed and are negative.[facility] 07-20-2024 History of Present illness Narrative* Micheal Nova, MARIA ESTHER-WARD AIDE - 07/20/2024 3:30 PM EDT Images from the original note were not included. [facility] Note Referring Provider: Navi Conklin DO PCP: No primary care provider on file. Tank Car Inspector: Alexis Gilmore DPM CC: 1 month post [...] left great toe and heel ulcers 8-9 months.Since then the ulcers healed and her pain improved. She then developed new ulcer on 2nd toe and left medial malleolus. Minimal edema of lower extremities. She had left foot rest pain, tissue loss and<100 ft claudication. BRIDGER/TBI (06/15/2024): Right 0.52/0.43 Left 0/0. 06/21/2024, status post successful revascularization using directional atherectomy_PTA_DCB to entire left SFA and popliteal with good results by Dr. Curry. Pt discharge to home to continue Plavix and Eliquis. Pt is here for 1 month post procedure FU with repeat testing. Pt reports resolution of her leg painand now able to walk in the grocery store without needing scooter to get around. She is very happy with the outcome of her procedure. She continue to increase the distance she ambulates. Has been comp liant with Plavix and Eliquis. No other complaints today. Past Vascular History: 12/04/23: LLE angiogram, jet stream atherectomy, ASSOCIATE LOAN OFFICER and stenting of SFA/pop (Dr. Padilla) for [...] (1,300 mg) by mouth every 8 hours ifneeded for mild pain (1 - 3). Do [...] (80 mg) by mouth once daily. Basaglar Trena U-100 Insulin 100 unit/mL (3 mL) pen [...] tablet (4 mg) by mouth every 8 hoursif needed for nausea or vomiting. potassium chloride [...] (BRIDGER) Without Exercise 07/20/2024 Patient Name: MARIMAR Raines Physician: [id number] Nury Blackwell MD, RPVI Study Date: 07/20/2024 Ordering Physician: [id number] TERRI JORDAN MRN/PID: [id number] Technologist: Chanda Martinez RVT Technologist 2: Date of /Age: 8 1955 / 69 years Gender: F Admission Status: Outpatient Location Performed: [facility] Diagnosis/ICD: Peripheral vascular disease, unspecified-I73.9 CPT Codes: 40255 Peripheral artery BRIDGER Only CONCLUSIONS: Right Lower PVR: Evidence of moderate arterial occlusive disease in the right lower extremity at rest. Decreased digital perfusion noted. Multiphasic flow is noted in the right common femoral artery,right posterior tibial artery and right dorsalis pedis [...] Left Brachial Pressure 175 mmHg 184 mmHg [id number] Nury Blackwell MD, RPVI Assessment/Plan Marimar Patel is 69 y.o. female with h/o PAD s/p LLE angiogram, SFA/pop atherectomy/stenting (12/04/2023) who is being referred by Dr. Thomason for management of PAD with non-healing left great toe andheel ulcers 8-9 months. Since then the ulcers healed and her pain improved. She then developed new ulcer on 2nd toe and left medial malleolus. Minimal edema of lower extremities. She had left foot rest pain, tissue loss and <100 ft claudication. BRIDGER/TBI (06/15/2024): Right 0.52/0.43 Left 0/0. 06/21/2024, status post successful revascularization using directional atherectomy_PTA_DCB to entire leftSFA and popliteal with good results by Dr. [...] and she is able to complete her dailyactivities with minimal discomfort. She had a very small left ankle wound which is now healed and sc abbed over. Vascular result discussed with pt in [...] is a long way for her, which isok. - Return to our clinic for FU in 1 year with testing ordered or sooner if needed ESTELLA Strong [facility] Work Phone: 1([phone]) 515-314309-10-2024 Instructions* Patient Instructions* ESTELLA Strong - 07/20/2024 3:30 PM EDT Thank you for coming to see us in the [facility] today. We have reviewed your vascular testing [...] concerns please give us a call at [phone] option 1 [facility] Work Phone: 1([phone]) 223-710209-03-2024 History of Present illness Narrative* Teena Delcid DO - 07/13/2024 1:00 PM EDT Images from the original note [...] into the right eye 5 (five) times aday for 1 day Starting 1 day before surgery, continue after surgery as directed 5 mL 1 prednisoLONE acetate (Pred-Forte) 1 % ophthalmic suspension Administer 1 drop into both eyes in themorning and 1 drop at noon and 1 [...] (ten) days 3 each 11 Continuous Glucose Pomology Teacher (Dexcom G7 Pomology Teacher) device 1 Device yearly 1 each 0 [...] (Other) Past Medical History: Diagnosis Date A-fib ([facility]) 2022 with RVR Anxiety Aortic stenosis 06/2022 Carotid artery disease ([facility]) Cataract CHF (congestive heart failure) ([facility]) 06/2022 Colon polyp 2016 Diverticulitis DM (diabetes mellitus) ([facility]) HLD (hyperlipidemia) ([facility]) HTN (hypertension) ([facility]) TN (myocardial infarction) ([facility]) NSTEMI, initial episode of care ([facility]) 2022 Retinal hemorrhage Allergies Allergen Reactions Penicillins [...] @ 1:09 PM Additional Tests Keratometry K1 Toney K2 Toney Right 43.75 180 44 90 Left 44.25 [...] retina superior Refraction Manifest Refraction Sphere Cylinder Toney Right +1.75 -0.75 098 Left Assessment/Plan Cataract mature, total senile - IOL Biometry - OU - Both Eyes (CPT 82987) - Visually Significant Cataract, OU: I discussed [...] different lens options were explained including the hrk-ep-ooqzjy fees for any upgrades. Intraocular lens (IOL) [...] improvement to the vision. documented in this encounterBarn[facility] History of Present illness Narrative* Alexis Gilmore DPM - 07/09/2024 11:50 AM EDT Patient: Marimar Patel : 1955 PCP: Nik [...] states she had improvement from seeing this [facility] doctors with intervention and has follow up in the near future Patient was seen in [place] for vascular intervention in the past with hx of DM2 and PVD Patient states continued pain to the region and was to follow up with vascular surgeon at the [facility] and states that she did follow up [...] History: Past Medical History: Diagnosis Date A-fib ([facility]) 2022 with RVR Anxiety Aortic stenosis 06/2022 Carotid artery disease ([facility]) Cataract CHF (congestive heart failure) ([facility]) 06/2022 Colon polyp 2016 Diverticulitis DM (diabetes mellitus) ([facility]) HLD (hyperlipidemia) ([facility]) HTN (hypertension) ([facility]) TN (myocardial infarction) ([facility]) NSTEMI, initial episode of care ([facility]) 2022 Retinal hemorrhage Medications: Current Outpatient Medications: [...] Disp: 3 each, Rfl: 11 Continuous Glucose Pomology Teacher (Dexcom G7 Pomology Teacher) device, 1 Device yearly, Disp: 1 each, [...] DIRECTED TO ADMINISTER INSULIN TWICE DAILY, Disp: 200each, Rfl: 3 LORazepam (Ativan) 0.5 MG tablet, [...] Resource Strain: Low Risk (06/22/2024) [facility] Overall Financial Resource Strain (CARDIA) Difficulty of Paying Living Expenses: Not hard at all Food Insecurity: No Food Insecurity (12/03/2023) Received from [facility], [facility], [facility] Hunger Vital Sign Within the past 12 months, you worried that your food would run out before you got the money to buymore.: Never true Within the past 12 months, the food you bought just didn't last and you didn't have money to get more.: Never true Transportation Needs: No Transportation Needs (06/22/2024) Re[facility] PRAPARE - Transportation Lack of Transportation (Medical): No Lack of Transportation (Non-Medical): No Physical Activity: Inactive (06/22/2024) Re[facility] Exercise Vital Sign Days of Exercise per Week: 0 days Minutes of Exercise per Session: 0 min Stress: Stress Concern Present (12/03/2023) Received from [facility], [facility] [place] [facility] - Occupational Stress Questionnaire Feeling of Stress : To some extent Social Connections: Moderately Isolated (12/03/2023) Received from [facility], [facility] Social Connection and Isolation Panel [NHANES] Frequency of Communication with Friends and Family: More than three times a week Frequency of Social Gatherings with Friends and Family: More than three times a week Attends Restorationist Services: Never Active Member of Clubs or Organizations: No Attends Club or Organization Meetings: Never Marital Status: Intimate Partner Violence: Not At Risk (12/03/2023) Received from [facility], [facility] Humiliation, Afraid, Rape, and Kick questionnaire Fear of Current or Ex-Partner: No Emotionally Abused: No Physically Abused: No Sexually Abused: No Housing Stability: Low Risk (06/22/2024) Re[facility] Housing Stability Vital Sign Unable to [...] positive edema to left foot. NEURO: 5.07 Cromona Truong monofilament test diminished to digits and forefoot bilaterally 125Hz tuning fork diminished to 1st MPJ bilaterally ORTHO: Positive pain on palpation nails 1 through 10 Flexion deformities digits 2 through 5 bilateral ASSESSMENT 1. PVD (peripheral vascular disease) (CMS/HCC) 2. Diabetes mellitus due to underlying condition with diabetic polyneuropathy, unspecified whether rodent exterminator insulin use ([facility]) 3. Dry gangrene ([facility]) 4. Onychomycosis 5. Toe pain, bilateral PLAN Discussed proper foot care with patient today. Debride nails in length and thickness digits 1 through 10 Patient educated today on proper diabetic foot care including monitoring feet daily for any signs of infection openings in the skin or irregularities to both feet. Patient had a diabetic neurologicalexam today to both their feet and discussed proper shoe gear. Patient continue dry sterile dressing to the area of dry gangrene to the medial left ankle which seems to be improving and contact Podiatry if any issues Alexis Gilmore DPM documented in this encounterBarnes-[facility] HospitalHbxrwpolww09-23-5806 Evaluation note* Type Assessment Date assessment Type 2 diabetes emelia itus 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 macular edema, bilateral impression Type 2 diabetes emelia itus 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 macular edema, bilateral: E11.3593. Bilateral. Condition: established, stable OD, active/worsening OS [facility] Work Phone: [phone] History of Present illness Narrative* Encounter Date [...] bandage. 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 Patient denies any pain [...] eye. denies new vision change The pat ient denies new vision change in the right [...] described as blurring. Patient denies eye pain. [facility] Work Phone: 1(206) 467-420408-21-2024 Instructions* Date Instruction Additional Infor dimple Impression/Plan [...] of right eye [facility] Work Phone: 1([phone]) 219-493408-12-2024 Plan of care note* Care Plan - [...] Goal: Free from fall injury Outcome: Progressing [facility] Work Phone: [phone] Miscellaneous Notes* Care Plan - Massiel Sesay [...] Attending: * Nely Curry - Primary Resident/Fellow/Other Phlebotomy Manager: Surgeons and Role: * Braeden Colin MD - Fellow Indications: Pre-op Diagnosis * PAD (peripheral artery disease) ([facility]) [I73.9] Post-procedure diagnosis: Post-op Diagnosis * PAD (peripheral artery disease) ([facility]) [I73.9] Procedure(s): Lower Extremity Angiogram and Intervention 01907 - [facility] ANGIOGRAPHY EXTREMITY UNILATERAL RS&I Procedure Findings: -LLE severe claudication and CLI Otero class V: Patient status post successful revascularization using directional glctdjvsizr-ERN-ABK to entire left SFA and popliteal with good results. Access of the Procedure: 6F right SKIN CARE SPECIALIST, closed with Vascade and manual pressure. Complications: [...] alternatives discussed with patient. documented in this [facility] Work Phone: [phone]) 811-882408-12-2024 History of Present illness Narrative* Blu Mobley, ParagD - 06/21/2024 2:32 PM EDT Pharmacy Medication History Review Marimar Patel is a 68 y.o. female admitted for PAD (peripheral artery disease) ([facility]). Pharmacy reviewed the patient's mxmhj-ps-gfwwyyaai medications and allergies for accuracy. Medications ADDED: acetaminophen Medications CHANGED: Albuterol as needed for shortness of breath/wheezing Basaglar KwikPen 100units/mL- 50 units at bedtime Ondansetron ODT as needed for nausea/vomiting Medications REMOVED: Spironolactone The list below reflects the updated ASSOCIATE LOAN OFFICER list. Comments regarding how patient may be [...] Below are additional concerns with the patient's ASSOCIATE LOAN OFFICER list. N/A Blu Mobley PharmD Transitions of Care Pharmacist [facility] Please reach out via Secure Chat for questions, or if no response call [employer] or [employer] documented in this [facility] Work Phone: [phone]) [phone] Note* Post-Procedure Note - Nely Curry MD - 06/21/2024 2:05 PM EDT Physician Transition of Care Summary Invasive Cardiovascular Lab Procedure Date: 06/21/2024 Attending: * Nely Curry - Primary Resident/Fellow/Other Phlebotomy Manager: Surgeons and Role: * Braeden Colin MD - Fellow Indications: Pre-op Diagnosis * PAD (peripheral artery disease) ([facility]) [I73.9] Post-procedure diagnosis: Post-op Diagnosis * PAD (peripheral artery disease) ([facility]) [I73.9] Procedure(s): Lower Extremity Angiogram and Intervention 61499 - G ANGIOGRAPHY EXTREMITY UNILATERAL RS&I Procedure Findings: -LLE severe claudication and CLI Otero class V: Patient status post successful revascularization using directional hdvtdaqcype-KTM-FHS to entire left SFA and popliteal with good results. Access of the Procedure: 6F right SKIN CARE SPECIALIST, closed with Vascade and manual pressure. Complications: [...] by: Nely Curry MD, 06/21/2024 5:00 PM [facility] Work Phone: [phone]) 392-377308-12-2024 Note* Pre-Sedation Documentation - Braeden Colin MD - 06/21/2024 1:58 PM EDT Sedation Plan ASA 3 Mallampati class: III. Risks, benefits, and alternatives discussed with patient. [facility] Work Phone: [phone]) [phone] History of Present illness Narrative* Margareth Escamilla DO - 06/15/2024 3:00 PM EDT Images from the original note were not included. [facility] Note Referring Provider: Navi Conklin DO PCP: No primary care provider on file. Tank Car Inspector: Alexis Gilmore DPM CC: PAD Subjective HPI: [...] a refill until her procedure on Friday. [facility] in 2021 showed no targets for revascularization with patent 3/4 bypass graft Past Vascular History: 12/04/23: LLE angiogram, jet stream atherectomy, ASSOCIATE LOAN OFFICER and stenting of SFA/pop (Dr. Padilla) for [...] (80 mg) by mouth once daily. Basaglar Trena U-100 Insulin 100 unit/mL (3 mL) pen [...] 0.52/0.43 Left 0/0 No imaging available from [facility] for review Plan: LLE angiogram with intervention on 06/21/[address] Curry Images from [facility] requested Continue aspirin, Plavix, Eliquis (Last dose of Eliquis PM of 06/18) Continue atorvastatin Percocet x10 tablets sent to patients pharmacy for pain control until procedure on 06/21/24 Patient seen and discussed with attending, Dr. Francine Escamilla DO documented in this [facility] Work Phone: [phone]) [phone] Instructions* Patient Instructions* Margareth Leblanc MD - 06/15/2024 3:00 PM EDT Images from the original note were not included. It was a pleasure taking care of you today and appreciate your seeing us at our [facility]. Today's plan is as follows: Continue [...] blood flow to your left leg at [facility] ([address] [facility]) with Dr. Escamilla The poultry farm laborer staff will call you the day before the procedure for further instructions and time of the procedure. The phone number to reach them at is [phone] (M-F, 6:30 am -5 pm) You will [...] call the office with any questions at [phone], press option 1 If you need coordinating your appointments and testing you can do these at the front end technician or by calling my office shortly after your visit. documented in this [facility] Work Phone: 1([phone]) 334-450107-01-2024 NoteUT Cardiology - [facility] Subjective Marimar Patel is a 68 y.o. year old female patient being seen for 3 mo follow up CAD, PAF, PAD, and aortic valve stenosis s/p TAVR. She had echo and BRIDGER's in March 2024. She saw metal patternmaker apprentice on Friday and he ordered more BRIDGER's. Patient Active Problem List Diagnosis Nonrheumatic aortic valve stenosis Coronary artery disease involving chicken ranch coronary artery of chicken ranch heart with angina pectoris (CMS/HCC) PAF (paroxysmal atrial fibrillation) ([facility]) Essential hypertension PAD (peripheral artery disease) ([facility]) Numbness of left lower extremity Acute asthmatic bronchitis Asthma without status asthmaticus Acute combined systolic and diastolic heart failure ([facility]) Arteriosclerosis of arterial coronary artery bypass graft Atrophic gastritis Cataract mature, total senile Chest pain Chondrocalcinosis Chronic ulcer of left foot with fat layer exposed ([facility]) Dehiscence of operative wound Diabetes mellitus (CMS/HCC) [...] retinopathy associated with type 2 diabetes mellitus ([facility]) S/P CABG x 4 Severe nonproliferative diabetic [...] Padilla. She was admitted 02/08/2024 to the [facility] with ?viral infection, weakness, low blood pressure, diarrhea and amlodipine, carvedilol, hydralazine, insulin and spironolactone were stopped. Today she is seen in follow-up. Her blood pressure has been severely elevated. She denies chest pain, palpitations and shortness of breath. She has no leg edema. She has noticed a nonhealing small ulcer overlying the left medial malleolus. She saw her metal patternmaker apprentice and ABIs will be performed on 05/17/2024. [...] Pulmonary effort is madyson (more content not included)...[facility] NoteUT Cardiology - [facility] Subjective Marimar Patel is a 68 y.o. year old female patient being seen for Follow-up (1.5 year follow up //Recently in ER ) Patient Active Problem List Diagnosis Nonrheumatic aortic valve stenosis Coronary artery disease involving chicken ranch coronary artery of chicken ranch heart with angina pectoris (CMS/HCC) PAF (paroxysmal [...] Padilla. She was recently admitted to the [facility] with ?viral infection, weakness, low blood [...] noon, and at bed (more content not included)...[facility] History of Present illness Narrative* Alexis Gilmore, DPM - 12/11/2023 4:30 PM EST Patient: Marimar [...] left leg and patient was transferred to [facility] where she had it angioplasty procedure with increased blood flow noted by patient. She has a type 2 diabeticand presents today for follow up in office. Allergies: Allergies Allergen Reactions Penicillins Hives childhood-swelling Past Medical History: Past Medical History: Diagnosis Date A-fib ([facility]) 2022 with RVR Anxiety Aortic stenosis 06/2022 Carotid artery disease ([facility]) CHF (congestive heart failure) [facility] 06/2022 Colon polyp 2016 Diverticulitis DM (diabetes mellitus) ([facility]) HLD (hyperlipidemia) ([facility]) HTN (hypertension) ([facility]) TN (myocardial infarction) ([facility]) NSTEMI, initial episode of care ([facility]) 2022 Medications: Current Outpatient Medications: amLODIPine (Norvasc) [...] positive edema to left foot NEURO: 5.07 Cromona Truong monofilament test diminished to digits and forefoot bilaterally 125Hz tuning fork diminished to 1st MPJ bilaterally ORTHO: Minimal pain on palpation to left foot ulcer BRIDGER PVR non readable findings to the left with non pulsatile flow and right of 0.53 DP ASSESSMENT 1. Diabetes mellitus due to underlying condition with diabetic polyneuropathy, unspecified whether rodent exterminator insulin use ([facility]) 2. PVD (peripheral vascular disease) ([facility]) 3. Dry gangrene ([facility]) 4. Foot ulcer, left, with fat layer exposed ([facility]) PLAN Sharp debridement with 15 blade of subcutaneous ulceration to left foot with active bleeding noted and removal and excision of fibrotic and necrotic tissue to wound and DSD applied with neosporin. Ptto continue with Betadine daily Reviewed BRIDGER PVRs and patient is to follow up with [facility] for right foot in near future and continue with wound care until follow up in 1 week Alexis Gilmore DPM documented in this encounter[facility] [id number] Evaluation note* Encounter Date Diagnosis Assessment Notes [...] office sooner with any issues or concerns. [employer] Other 03-24-2023 NotePROCEDURE: XR WRIST LT MIN 3 V HISTORY: Pain after falling COMPARISON: None. FINDINGS: BONES:No fracture, acute abnormality, or significant arthropathy. SOFT TISSUES:Multiple skin jose within soft tissues lateral to the distal forearm. EFFUSION:None visible. OTHER: Negative. IMPRESSION: 1. No acute bone abnormality. 2. Multifocal mild degenerative joint disease. Electronically authenticated by: GERMAIN COY Date: 2023-01-31 13:[address] [place], [place] 6205203-06-2023 Procedure [facility] 01-09-2023 Evaluation note* Encounter Date Diagnosis Assessment [...] clinical exam. I do not have the [place] studies yet. We will reach out to [...] was obtained all her questions were addressed. [employer] Other 08-25-2022 NoteMR#: [id number] I [facility] Pt. Name: Marimar Patel Admitted: 2022 [...] Amaya MD Date Trans: 07/03/2022 11:43 P/abdiaziz [id number] cc: Nik Bell M.D. [address] [place] [address]11-11-2021 Evaluation note* Encounter Date Diagnosis Assessment Notes [...] plan all of her questions were addressed. [employer] Other Consult note* Clinical Note Date No Information [facility] Work Phone: Discharge summary* Clinical Note Date No Information [facility] Work Phone: Evaluation noteNo assessment information available [facility] Work Phone: Evaluation note* Diagnosis Diabetes mellitus due to underlying condition with diabetic polyneuropathy, unspecified whether rodent exterminator insulin use ([facility])- Primary PVD (peripheral vascular disease) ([facility]) Unspecified peripheral vascular disease Dry gangrene ([facility]) Foot ulcer, left, with fat layer exposed ([facility]) documented in this encounter [facility]* Diagnosis Onset Date Resolution Status Peripheral artery disease ac [facility] Work Phone: Evaluation note* Diagnosis Pseudophakia- Primary Lens replaced by other means documented in this encounter [facility]* Diagnosis Pseudophakia- Primary Lens replaced by other means Cataract mature, total senile Total or mature senile cataract documented in this encounter [facility]* Diagnosis Pseudophakia- Primary Lens replaced by other means documented in this encounter [facility] HealthcareEvaluation note* Diagnosis Pseudophakia- Primary Lens replaced by other means Diabetes mellitus due to underlying condition with diabetic polyneuropathy, unspecified whether rodent exterminator insulin use ([facility])- Primary Pain due to onychomycosis of toenails of both feet Dry gangrene ([facility]) PVD (peripheral vascular disease) ([facility]) Unspecified peripheral vascular disease [facility]* Diagnosis Acute asthmatic bronchitis ([facility])- Primary Unspecified asthma, with exacerbation Type 2 diabetes mellitus with hyperglycemia, with long-term current use of insulin ([facility]) Polyneuropathy due to type 2 diabetes mellitus ([facility]) Acute cough Dry gangrene ([facility]/H[facility])- Primary PVD (peripheral vascular disease) ([facility]) Unspecified peripheral vascular disease Diabetes mellitus due to underlying condition with diabetic polyneuropathy, unspecified whether skilled nursing insulin use ([facility]) Pain due to onychomycosis of toenails of both feet documented in this encounter [facility] HealthcareEvaluation note* Diagnosis Dry gangrene ([facility])- Primary PVD (peripheral vascular disease) ([facility]) Unspecified peripheral vascular disease Diabetes mellitus due to underlying condition with diabetic polyneuropathy, unspecified whether rodent exterminator insulin use ([facility]) Pain due to onychomycosis of toenails of both feet documented in this encounter [facility] HealthcareEvaluation note* Diagnosis Acute asthmatic bronchitis ([facility])- Primary Unspecified asthma, with exacerbation Need for vaccination Need for prophylactic vaccination and inoculation against unspecified single disease Hypotension, unspecified hypotension type documented in this encounter [facility] HealthcareEvaluation note* Diagnosis Pseudophakia- Primary Lens replaced by other means documented in this encounter [facility] note* Diagnosis PAD (peripheral artery disease) ([facility])- Primary Unspecified peripheral vascular disease PAD (peripheral artery disease) ([facility]) Unspecified peripheral vascular disease S/P peripheral artery angioplasty Other postprocedural status Atherosclerosis of [place] arteries of extremities with intermittent claudication, left leg ([facility]) Atherosclerosis of [place]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 with ulceration of other part of foot ([facility]) Acute pain PAD (peripheral artery disease) ([facility]) Unspecified peripheral vascular disease documented in this encounter [facility] Work Phone: Evaluation note* Diagnosis PAD (peripheral artery disease) ([facility])- Primary Unspecified peripheral vascular disease Anemia, unspecified type documented in this encounter [facility] Work Phone: Evaluation note* Diagnosis PAD (peripheral artery disease) ([facility]) Unspecified peripheral vascular disease S/P peripheral artery angioplasty Other postprocedural status documented in this encounter [facility] Work Phone: Evaluation note* Diagnosis S/P peripheral artery angioplasty- Primary Other postprocedural status PAD (peripheral artery disease) ([facility]) Unspecified peripheral vascular disease documented in this encounter [facility] Work Phone: Evaluation note* Diagnosis Dry gangrene ([facility])- Primary PVD (peripheral vascular disease) ([facility]) Unspecified peripheral vascular disease Diabetes mellitus due to underlying condition with diabetic polyneuropathy, unspecified whether rodent exterminator insulin use ([facility]) Onychomycosis Dermatophytosis of nail Toe pain, bilateral documented in this encounter [facility] HealthcareEvaluation note* Diagnosis Cataract mature, total senile- Primary Total or mature senile cataract documented [facility] encounter [facility]* Diagnosis Heel spur, right- Primary Diabetes mellitus due to underlying condition with diabetic polyneuropathy, unspecified whether skilled nursing insulin use ([facility]) Pain due to onychomycosis of toenails of both feet Onychomycosis Dermatophytosis of nail PVD (peripheral vascular disease) ([facility]) Unspecified peripheral vascular disease Achilles tendinitis, right leg Contracture of right ankle documented in this encounter [facility] HealthcareEvaluation note* Diagnosis Heel spur, right- Primary Achilles tendinitis, right leg Contracture of right ankle documented in this encounter [facility] HealthcareEvaluation note* Diagnosis Paroxysmal atrial fibrillation ([facility])- Primary Atrial fibrillation Benign essential hypertension ([facility]) Essential hypertension, benign Type 2 diabetes mellitus with hyperglycemia, with long-term current use of insulin ([facility]) 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 ([facility]) S/P CABG x 4 Postsurgical aortocoronary bypass status Encounter for screening mammogram for malignant neoplasm of breast Type 2 diabetes mellitus with foot ulcer (CODE) ([facility]) Non-pressure chronic ulcer of other part of left foot with fat layer exposed ([facility]) documented in this encounter [facility]* Diagnosis Type 2 diabetes mellitus with hyperglycemia, with long-term current use of insulin ([facility]) documented in this encounter [facility]* Diagnosis 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 associated with type 2 diabetes mellitus ([facility])- Primary 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 ([facility]) Epiretinal membrane (ERM) of both eyes Dry eyes Unspecified tear film insufficiency Achilles tendinitis, right leg- Primary Contracture of right ankle Diabetes mellitus due to underlying condition with diabetic polyneuropathy, unspecified whether skilled nursing insulin use ([facility]) Pain due to onychomycosis of toenails of both feet [facility]VD (peripheral vascular disease) [facility] Unspecified peripheral vascular disease documented in this encounter [facility]* Diagnosis Onset Date Resolution Status Admit Date Weakness acute February 15 6:24pm [facility] Work Phone: History and physical note* Clinical Note Date No Information [facility] Work Phone: Hisdyaj general Narrative - Reported* Type Description Date Medical History carotid stenosis Medical History diverticulitis Medical History TN Medical History DM Medical History hyperlipidemia Medical History HTN Surgical History cholecystectomy Surgical History tonsillectomy Surgical History CABGx2 Surgical History hernia repair Surgical History appendectomy Surgical History quad bypass 2012 Hospitalization History see surgical hx [employer] Other Hiswiwa general Narrative - Reported* Type Description Date Medical History carotid stenosis Medical History diverticulitis Medical History TN Medical History DM Medical History hyperlipidemia Medical History HTN Surgical History cholecystectomy Surgical History tonsillectomy Surgical History CABGx2 Surgical History hernia repair Surgical History appendectomy Surgical History quad bypass 2012 Surgical History Cardiac Stent 2022 Hospitalization History see surgical hx [employer] Other History of Present illness Narrative* Teena [...] vision, questions or concerns. documented in this encounter[facility] HealthcareHistory of Present illness Narrative * Teena Delcid DO - 09/17/2024 9:30 AM EST Images from the original note were not included. Assessment/Plan Diagnoses and all orders for this visit: Pseudophakia - s/p CE OS (POD #7): Patient provided with post-op form. Instructed to continue drops. Discontinueeye shield. Instructed to call immediately with increased pain, redness, decreased vision, questions or concerns. [facility] Additional Instructions DISDISCHARGE INSTRUCTIONS FOR [...] 24 hours. CALL [name at #] OR [facility] AT [phone]: -If excessive bleeding should occur from the [...] Avandament for the next two days.] [ ][facility] Work Phone: Progress note* Clinical Note Date No Information [facility] Work Phone: Reason for referral (narrative)* Reason For Referral No Information [facility] Work Phone: Reason for visit Narrative* Auth/Cert Specialty Diagnoses / Procedures Referred By Ashley t Referred To Contact Diagnoses PAD (peripheral artery disease) ([facility]) PAD (peripheral artery disease) ([facility]) [I73.9] Procedures CHG ANGIOGRAPHY EXTREMITY UNILATERAL RS&I Lower Extremity Angiogram and Intervention Nely Curry MD [address] [facility] [place] [address] [facility] [id number] [address] Melinda Chand [facility] [address] [place] [address] Referral ID Status Reason Start Date Expiration Date Visits Re quested Visits Authorized [id number] 1 1 [facility] Work Phone: Summary Purpose Family History [...] Complaint and Reason for Visit Chief Complaint Admit Date Back spasms February 15, 2025 6:24 pm Reason for Visit Admit Date Abdominal pain February 15, 2025 6:24 pm Weakness February 15, 2025 6:24 pm Chief Complaint Diabetic Foot Ulcer, PAD Left Leg Chief Complaint Diabetic Foot Ulcer, PAD Left Leg i70.212 Chief Complaint i73.9 i96 e08.42 Chief Complaint i73.9 i96 e08.42 GO OVER PVR'S PVD Peripheral vascular disease Reason for Visit Peripheral artery di sease Chief Complaint i73.9 i96 e08.42 GO OVER PVR'S PVD Peripheral vascular disease Z01.818 Reason for Visit Peripheral artery di sease Reason for Visit Admit Date Weakness February 15, 2025 6:24 pm Reason for Referral Specialty Diagnoses / Procedures Referred By Contac t Referred To Contact Cardiology Diagnoses PAD (peripheral artery disease) ([facility]) S/P peripheral artery angioplasty Procedures Vascular US Ankle Brachial Index (BRIDGER) Without Exercise Tabirta, Terri I, [facility] [address] [id number] Referral ID Status Reason Start Date Expiration Date Visits Requested Visits Authorized [id number] Authorized Perform Procedure 06/21/2024 06/21/2025 1 1 Additional Source Comments REASON FOR VISIT (unrecogniz ed section and content) Reason Comments Consult PVR F/U Reason Comments Post-op Reason Comments Post-op Cataract Reason Comments Post-op Follow-up Reason Comments Diabetes Reason Comments DM Foot Care Dm nail care Reason Comments New Patient Visit Specialty Diagnoses / Procedures Referred By Contac t Referred To Contact Cardiology Diagnoses PAD (peripheral artery disease) ([facility]) S/P peripheral artery angioplasty Procedures Vascular US Ankle Brachial Index (BRIDGER) Without Exercise Liangirirene, Terri I, [facility] [address] [place] [address] Referral ID Status Reason Start Date Expiration Date Visits Requested Visits Authorized [id number] Authorized Perform Procedure 06/21/2024 06/21/2025 1 1 Reason Comments Follow-up Reason Comments DM Foot Care DM Nails Reason Comments Cataract Reason Comments Follow-up RT HEEL SPUR CHECK Reason Comments Med Refill Reason Comments Follow-up INFORMATION SOURCE (unrecogn ized section and content) DATE CREATED AUTHOR 07/13/2022 [facility] DATE CREATED AUTHOR AUTHOR'S ORGANIZ ATION 02/04/2023 [facility] DATE CREATED AUTHOR AUTHOR'S ORGANIZ ATION 07/26/2024 [facility] DATE CREATED AUTHOR AUTHOR'S ORGANIZ ATION 07/26/2024 [facility] DATE CREATED AUTHOR AUTHOR'S ORGANIZ ATION 12/22/2024 [facility] DATE CREATED AUTHOR AUTHOR'S ORGANIZ ATION 01/07/2025 [facility] DATE CREATED AUTHOR AUTHOR'S ORGANIZ ATION 02/16/2025 [facility] EPIC DATE CREATED AUTHOR AUTHOR'S ORGANIZ ATION 02/17/2025 [facility] Care Teams (unrecognized sec tion and content) Team Status: Active Member Role Status Dates Nik Bell II MD Primary Care Provider Active Team Status: Inactive Member Role Status Dates Nik Bell II MD Primary Care Provider Active Start: February 15, 2025 End: February 16, 2025 Ross Martinez APRN Emergency Provider Active Start: February 15, 2025 End: February 16, 2025 Edvin Casper MD Admit Provide r, Attending Provider Active Start: February 15, 2025 End: February 16, 2025 Team Status: Active Member Role Status Dates Nik Bell II MD Primary Care Provider Active Start: February 15, 2025 Ross Martinez APRN Emergency Provider Active Start: February 15, 2025 Edvin Casper MD Admit Provide r, Attending Provider Active Start: February 15, 2025 Team Status: Inactive Member Role Status Dates Nik Bell II MD Primary Care Provider Active Geo Mathew MD Attending Provider Active [employer] Relationship Specialty Start Date End Date Nik Bell MD [address] [place] [address] PCP - General Internal Medicine 03/18/23 Team [...] (start - stop) Status Members No Information [employer] Superintendent Relationship Specialty Start Date End Date Nik Bell MD [address] [place] [address] PCP - General Internal Medicine 03/18/23 Nik Bell MD [address] [place] [address] PCP - ACO Reach 01/09/24FridayMagalie LPN [address] [place] [address] Licensed Practical Nurse Family Medicine 02/27/24 [employer] Superintendent Relationship Specialty Start Date End Date Nik Bell MD [address] [place] [address] PCP - General Internal Medicine 03/18/23 Nik Bell MD [address] [place] [address] PCP - ACO Reach 01/09/24Friday Magalie, TIRE MOUNTER [address] [place] [address] Licensed Practical Nurse Family Medicine 02/27/24 [employer] Superintendent Relationship Specialty Start Date End Date Nik Bell MD [address] [place] [address] PCP - General Internal Medicine 03/18/23 Nik eBll MD [address] [place] [address] PCP - ACO Reach 01/09/24Friday, Magalie, TIRE MOUNTER [address] [place] [address] Licensed Practical Nurse Family Medicine 02/27/24 [employer] Superintendent Relationship Specialty Start Date End Date Nik Bell MD [address] [place] [address] PCP - General Internal Medicine 03/18/23 Nik Bell MD [address] [place] [address] PCP - ACO Reach 01/09/24Friday, Magalie, TIRE MOUNTER [address] [place] [address] Licensed Practical Nurse Family Medicine 02/27/24 [employer] Superintendent Relationship Specialty Start Date End Date Nik Bell MD [address] [place] [address] PCP - General Internal Medicine 03/18/23 Nik Bell MD [address] [place] [address] PCP - ACO Reach 01/09/24Friday, Magalie, TIRE MOUNTER [address] [place] [address] Licensed Practical Nurse Family Medicine 02/27/24 [employer] Superintendent Relationship Specialty Start Date End Date Nik Bell MD [address] [place] [address] PCP - General Internal Medicine 03/18/23 Nik Bell MD [address] [place] [address] PCP - ACO Reach 01/09/24Friday, Magalie, TIRE MOUNTER [address] [place] [address] Licensed Practical Nurse Family Medicine 02/27/24 [employer] Superintendent Relationship Specialty Start Date End Date Nik Bell MD [address] [place] [address] PCP - General Internal Medicine 03/18/23 Nik Bell MD [address] [place] [address] PCP - ACO Reach 01/09/24Friday, Magalie, TIRE MOUNTER [address] [place] [address] Licensed Practical Nurse Family Medicine 02/27/24 [employer] Superintendent Relationship Specialty Start Date End Date Nik Bell MD [address] [place] [address] PCP - General Internal Medicine 03/18/23 Nik Bell MD [address] [place] [address] PCP - ACO Reach 01/09/24Friday, Magalie, TIRE MOUNTER [address] [place] [address] Licensed Practical Nurse Family Medicine 02/27/24 [employer] Superintendent Relationship Specialty Start Date End Date Nik Bell MD [address] [place] [address] PCP - General Internal Medicine 03/18/23 Nik Bell MD [address] [place] [address] PCP - ACO Reach 01/09/24Friday, Magalie, TIRE MOUNTER [address] [place] [address] Licensed Practical Nurse Family Medicine 02/27/24 [employer] Superintendent Relationship Specialty Start Date End Date Nik Bell MD [address] [place] [address] PCP - General Internal Medicine 03/18/23 Nik Bell MD [address] [place] [address] PCP - ACO Reach 01/09/24Friday, Magalie TIRE MOUNTER [address] [place] [address] Licensed Practical Nurse Family Medicine 02/27/24 [employer] Superintendent Relationship Specialty Start Date End Date Navi Conklin DO [address] [facility] [address] [place] [address] PCP - General Family Medicine 06/15/24 06/16/24 [employer] Superintendent Relationship Specialty Start Date End Date Nik Bell MD [address] [place] [address] PCP - General Internal Medicine 03/18/23 Nik Bell MD [address] [place] [address] PCP - ACO Reach 01/09/24Friday, Magalie, TIRE MOUNTER [address] [place] [address] Licensed Practical Nurse Family Medicine 02/27/24 [employer] Superintendent Relationship Specialty Start Date End Date Nik Bell MD [address] [place] [address] PCP - General Internal Medicine 03/18/23 Nik Bell MD [address] [place] [address] PCP - ACO Reach 01/09/24Friday, Magalie, TIRE MOUNTER [address] [place] [address] Licensed Practical Nurse Family Medicine 02/27/24 [employer] Superintendent Relationship Specialty Start Date End Date Nik Bell MD [address] [place] [address] PCP - General Internal Medicine 03/18/23 Nik Bell MD [address] [place] [address] PCP - ACO Reach 01/09/24Friday, Magalie TIRE MOUNTER [address] [place] [address] Licensed Practical Nurse Family Medicine 02/27/24 [employer] Superintendent Relationship Specialty Start Date End Date Nik Bell MD [address] [place] [address] PCP - General Internal Medicine 03/18/23 Nik Bell MD [address] [place] [address] PCP - ACO Reach 01/09/24Friday, Magalie, TIRE MOUNTER [address] [place] [address] Licensed Practical Nurse Family Medicine 02/27/24 [employer] Superintendent Relationship Specialty Start Date End Date Nik Bell MD [address] [place] [address] PCP - General Internal Medicine 03/18/23 Nik Bell MD [address] [place] [address] PCP - ACO Reach 01/09/24FridayMagalie, TIRE MOUNTER [address] [place] [address] Licensed Practical Nurse Family Medicine 02/27/24 [employer] Superintendent Relationship Specialty Start Date End Date Nik Bell MD [address] [place] [address] PCP - General Internal Medicine 03/18/23 Nik Bell MD [address] [place] [address] PCP - ACO Reach 01/09/24 Lauren Finn RN Licensed Practical Nurse Family Medicine 12/17/24 [employer] Superintendent Relationship Specialty Start Date End Date Nik Bell MD [address] [place] [address] PCP - General Internal Medicine 03/18/23 Nik Bell MD [address] [place] [address] PCP - ACO Reach 01/09/24 Lauren Finn RN Licensed Practical Nurse Family Medicine 12/17/24 [employer] Superintendent Relationship Specialty Start Date End Date Nik Bell MD [address] [place] [address] PCP - General Internal Medicine 03/18/23 Nik Bell MD [address] [place] [address] PCP - ACO Reach 01/09/24 Lauren Finn, RN Licensed Practical Nurse Family Medicine 12/17/24 [employer] Superintendent Relationship Specialty Start Date End Date Nik Bell MD [address] [place] [address] PCP - General Internal Medicine 03/18/23 Nik Bell MD [address] [place] [address] PCP - ACO Reach 01/09/24 Lauren Finn, RN Licensed Practical Nurse Family Medicine 12/17/24 [employer] Superintendent Relationship Specialty Start Date End Date Nik Bell MD [address] [place] [address] PCP - General Internal Medicine 03/18/23 Nik Bell MD [address] [place] [address] PCP - ACO Reach 01/09/24 Lesa Browne LPN 02/01/25 [employer] Superintendent Relationship Specialty Start Date End Date Nik Bell MD [address] [place] [address] PCP - General Internal Medicine 03/18/23 Nik Bell MD [address] [place] [address] PCP - ACO Reach 01/09/24 Lesa Browne LPN 02/01/25 Goals (unrecognized section and content) Goals may [...] Sesay RN) 0843 (Given - Provider: Mariely Mcnitosh LPN)2100 (Due) clopidogrel (Plavix) tablet 75 mg 75 [...] on food (eg, applesauce, orange juice, pudding 2030 (Given - Provider: Massiel Sesay RN) [...] 1852 (Given - Provider: Ana Guillen RN) 0843 (Given - Provider: Mariely Mcintosh LPN) Continuous Medication Order 06/20/2024 06/21/2024 06/22/2024 sodium chloride 0.9% infusion 125 mL/hr, intravenous, Continuous, Starting on Fri06/21/24 at 1745, For 6 hours, Recovery & On Unit, 6-12 hours post procedure. Post-Procedure Hydration Protocol ACC/AHA/SCAI 2211 (New Bag - Provider: Channing Guillen, RN)5757 (Rate/Dose Verify - Provider: Massiel Sesay, WARD) PRN Medication Order 06/20/2024 06/21/2024 06/22/2024 albuterol [...] BE BASED ON THE PRIMARY CLINICAL RECORDS. [facility]. provides no warranty or guarantee of the accuracy or completeness of information in this document.
[2025-02-18] MEDS: IPRATROPIUM/ALBUTEROL SULFATE 3 ML AMPUL.NEB IH (05:26)
[2025-02-18 05:37] LABS: ABG PCO2 40.1 mmHg (35.0-45.0); pH ABG 7.385 (7.350-7.450)
[2025-02-18 05:38] LABS: Allen Test POSITIVE (POSITIVE); Base Excess ABG -1.1 mmol/L (-2.0-2.0); Liters per Minute 4; O2 Mode Nasal Cannula; Oxygen Saturation ABG 86.1 %; Puncture Site R Radial
[2025-02-18 06:13] LABS: Hematocrit 27.8 % (36.0-48.0); Hemoglobin 8.5 g/dL (12.0-16.0); Mean Corpuscular HGB Conc 30.6 g/dL (29.9-35.2); Mean Corpuscular Hemoglobin 27.6 pg (26.7-34.0); Mean Corpuscular Volume 90.3 fL (81.0-99.0); Mean Platelet Volume 11.2 fL (9.5-13.5); Platelet Count 236 10^3/uL (150-450); Red Blood Count 3.08 10^6/uL (4.20-5.40); Red Cell Distribution Width 15.9 % (11.0-15.0); White Blood Count 18.2 10^3/uL (4.0-11.0)
[2025-02-18 06:28] LABS: Eosinophils Absolute Manual 0.18 10^3/uL (0.00-0.70); INR 1.01; Lymphocytes Absolute Manual 1.82 10^3/uL (1.20-3.80); Monocytes Absolute Manual 1.82 10^3/uL (0.30-0.80); Prothrombin Time 10.7 sec (9.0-11.6); Segmented Neut Absolute Manual 14.37 10^3/uL (1.4-6.5)
[2025-02-18 06:32] LABS: Alanine Aminotransferase 21 U/L (14-59); Albumin Level 3.4 g/dL (3.4-5.0); Alkaline Phosphatase 94 U/L (46-116); Anion Gap 10.5; Aspartate Amino Transferase 17 U/L (15-37); BUN Creatinine Ratio 28.8; Bilirubin Total 0.5 mg/dL (0.2-1.0); Calcium 8.5 mg/dL (8.5-10.1); Carbon Dioxide 26.2 mmol/L (21.0-32.0); Chloride 104 mmol/L (98-107); Estimated GFR (African America 45 (>=60 mL/min/1.73m^2); Estimated GFR (Non-African Ame 37 (>=60 mL/min/1.73m^2); Globulin 3.3 g/dL; Glucose 229 mg/dL (74-106); Potassium 4.7 mmol/L (3.5-5.1); Sodium 136 mmol/L (136-145); Total Protein 6.7 g/dL (6.4-8.2)
[2025-02-18] MEDS: ACETAMINOPHEN 325 MG TABLET 650 MG PO (06:39)
[2025-02-18] MEDS: ENALAPRILAT DIHYDRATE 1.25 MG/ML VIAL 0.625 MG IV (06:41)
[2025-02-18] MEDS: FUROSEMIDE 20 MG/2 ML VIAL IVP (06:44)
[2025-02-18 06:46] LABS: Troponin I High Sensitivity 277.6 pg/mL (4.0-51.3)
[2025-02-18] MEDS: KETOROLAC TROMETHAMINE 30 MG/ML VIAL 15 MG IVP (06:50)
[2025-02-18] MEDS: MAGNESIUM SULFATE IN WATER 2 GM/50 ML PREMIX IV (06:50)
[2025-02-18 07:12] LABS: Lactate/Lactic Acid 2.1 mmol/L (0.4-2.0)
[2025-02-18] MEDS: LEVOFLOXACIN IN DEXTROSE 5 % 750 MG/150 ML PREMIX 100 MG IV (07:19)
[2025-02-18 07:27] LABS: Troponin I High Sensitivity 600.6 pg/mL (4.0-51.3)
--- NOTE | 2025-02-18 07:39 | ED.GENADUL1 ---
HPI HPI - General Adult General Chief complaint: Shortness of Breath/Dyspnea Stated complaint: SHORTNESS OF BREATH Time Seen by Provider: 02/18/25 05:11 Source: patient Source information: pt and EMS crew Mode of arrival: ambulance History of Present Illness HPI narrative: 69-year-old female presented to the emergency department and was initially seen by Dr. Godfrey and signed out to me after discussing the case with him thoroughly. Please see his full history and physical exam. Related Data Home Medications ?Medication ?Instructions ?Recorded ?Confirmed apixaban 5 mg tablet (Eliquis) 5 mg PO BID 02/08/24 02/18/25 atorvastatin 80 mg tablet 80 mg PO DAILY 02/08/24 02/18/25 citalopram 20 mg tablet 20 mg PO DAILY 02/08/24 02/18/25 clopidogrel 75 mg tablet 75 mg PO DAILY 02/08/24 02/18/25 gabapentin 300 mg capsule 300 mg PO BID 02/08/24 02/18/25 insulin regular human 100 unit/mL 10 unit 02/08/24 injection solution (Novolin R Regular U-100 Insulin) lisinopril 20 mg tablet 20 mg PO DAILY 02/08/24 02/18/25 potassium chloride 20 mEq 20 meq PO BID 02/08/24 02/18/25 tablet,extended release(part/cryst) (Klor-Con M) amlodipine 10 mg tablet mg 02/18/25 carvedilol 25 mg tablet mg 02/18/25 diclofenac sodium 1 % topical gel 4 g topical QID 02/18/25 02/18/25 (Voltaren Arthritis Pain) ferrous sulfate 325 mg (65 mg 325 mg PO DAILY 02/18/25 02/18/25 iron) tablet (Neftaly-Time) furosemide 40 mg tablet mg 02/18/25 hydralazine 25 mg tablet mg 02/18/25 hydralazine 50 mg tablet mg 02/18/25 insulin glargine 100 unit/mL (3 unit subcut 02/18/25 mL) subcutaneous pen (Lantus Solostar U-100 Insulin) loratadine 10 mg capsule (Allergy 10 mg PO DAILY 02/18/25 02/18/25 Relief (loratadine)) Allergies Allergy/AdvReac Type Severity Reaction Status Date / Time Penicillins Allergy Severe Verified 02/08/24 12:18 Opioid HPI Opioid Management Most Recent Opioid Data: Last Pain Scale 6 02/18/25 06:50 02/18/25 Last Pain Intensity 0 02/09/24 09:27 02/09/24 Last MAR Pain Assessment 02/18/25 06:50 Last ORT Total Score 3 02/08/24 16:51 02/08/24 Last ORT Risk Category Low Risk 02/08/24 16:51 02/08/24 PFS PFS Medical History (Updated 02/18/25 @ 07:39 by Daquan Mckeon MD) Hypoglycemia ?E16.2 - Hypoglycemia, unspecified (ICD-10) EVA (acute kidney injury) ?N17.9 - Acute kidney failure, unspecified (ICD-10) Hypotension ?I95.9 - Hypotension, unspecified (ICD-10) Hypertension ?I10 - Essential (primary) hypertension (ICD-10) Hyperlipidemia ?E78.5 - Hyperlipidemia, unspecified (ICD-10) Colon cancer ?C18.9 - Malignant neoplasm of colon, unspecified (ICD-10) Heart disease ?I51.9 - Heart disease, unspecified (ICD-10) Diabetes ?E11.9 - Type 2 diabetes mellitus without complications (ICD-10) Surgical History (Updated 02/08/24 @ 16:43 by Letty Saleem) History of cholecystectomy ?Z90.49 - Acquired absence of other specified parts of digestive tract (ICD-10) History of hysterectomy ?Z90.710 - Acquired absence of both cervix and uterus (ICD-10) History of partial surgical removal of colon ?Z90.49 - Acquired absence of other specified parts of digestive tract (ICD-10) History of appendectomy ?Z90.49 - Acquired absence of other specified parts of digestive tract (ICD-10) 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.1 - Presence of aortocoronary bypass graft (ICD-10) Family History (Updated 02/08/24 @ 16:45 by Letty Saleem) Father Family history of CHF (congestive heart failure) Family history of myocardial infarction Mother Family history of cancer Family history of diabetes mellitus Sister Family history of diabetes mellitus Family history of cancer Brother Family history of myocardial infarction Family history of stroke Social History (Updated 02/08/24 @ 16:46 by Letty Saleem) Within the past year, how often did you have a drink containing alcohol: never Score interpretation: A score less than 3 is consistent with normal alcohol consumption. Smoking status: Never smoker Non-prescribed substance use: denies use Previous occupational history: retired Highest level of school completed/degree received: 11th grade Are you now , , , , never or living with a partner: In a typical week, how many times do you talk on the telephone with family, friends, or neighbors: twice per week How often do you get together with friends or relatives: twice per week How often do you attend worship or jewish services: never Do you belong to any clubs or organizations such as worship groups unions, [employer] or athletic groups, or school groups: no Total score: 2 Score interpretation: A score of greater than or equal to 2 indicates the lowest level of social isolation. Little interest or pleasure in doing things: not at all Feeling down, depressed, or hopeless: not at all Feel stressed/tense/nervous/anxious/difficulty sleeping: not at all Do you think of yourself as: straight/heterosexual Gender Identity: female Exam Constitutional Vital Signs, click to edit/add: Last Vital Signs Temp 98.3 F 02/18/25 05:25 Pulse 82 02/18/25 06:10 Resp 31 H 02/18/25 05:40 BP 149/101 H 02/18/25 06:44 Pulse Ox 98 02/18/25 06:10 O2 Del Method Nasal Cannula 02/18/25 06:10 O2 Flow Rate 4 02/18/25 05:26 FiO2 3 02/18/25 06:10 Course Vital Signs Vital signs: Vital Signs Blood Pressure 185/86 H 02/18/25 05:13 Temperature 98.3 F 02/18/25 05:25 Pulse Rate 82 02/18/25 06:10 Respiratory Rate 31 H 02/18/25 05:40 Blood Pressure 149/101 H 02/18/25 06:44 Pulse Oximetry 98 02/18/25 06:10 Oxygen Delivery Method Nasal Cannula 02/18/25 06:10 Oxygen Delivery Flow Rate 4 02/18/25 05:26 Fraction of Inspired Oxygen 3 02/18/25 06:10 Medical Decision Making MDM Narrative Medical decision making narrative: Initial troponin was 277, repeat is 600. EKG on my interpretation shows slight ST depression laterally. She has been maintained on BiPAP. She was not given heparin because she is already on Eliquis and she is going to be transferred to [facility]. Differential Diagnosis Differential Diagnosis: Pulmonary edema, STEMI, NSTEMI, pneumonia Lab Data Lab results reviewed: Yes I reviewed the patient's lab results Labs: Lab Results 02/18/25 02/18/25 02/18/25 Range/Units 05:20 06:00 06:34 WBC 18.2 H (4.0-11.0) 10^3/uL RBC 3.08 L (4.20-5.40) 10^6/uL Hgb 8.5 L (12.0-16.0) g/dL Hct 27.8 L (36.0-48.0) % MCV 90.3 (81.0-99.0) fL MCH 27.6 (26.7-34.0) pg MCHC 30.6 (29.9-35.2) g/dL RDW 15.9 H (11.0-15.0) % Plt Count 236 (150-450) 10^3/uL MPV 11.2 (9.5-13.5) fL Seg Neuts % (Manual) 79.0 H (43.0-75.0) Lymphocytes % (Manual) 10.0 L (20.5-60.0) % Monocytes % (Manual) 10.0 (1.7-12.0) % Eosinophils % (Manual) 1.0 (0.9-7.0) % Basophils % (Manual) 0.0 L (0.2-2.0) % Neutrophils # (Manual) 14.37 H (1.4-6.5) 10^3/uL Lymphocytes # (Manual) 1.82 (1.20-3.80) 10^3/uL Monocytes # (Manual) 1.82 H (0.30-0.80) 10^3/uL Eosinophils # (Manual) 0.18 (0.00-0.70) 10^3/uL Basophils # (Manual) 0.00 (0.00-0.10) 10^3/uL PT 10.7 (9.0-11.6) sec INR 1.01 Puncture Site R radial ABG pH 7.385 (7.350-7.450) ABG pCO2 40.1 (35.0-45.0) mmHg ABG pO2 51.0 L* (80.0-100.0) mmHg ABG HCO3 24.0 (22.0-26.0) mmol/L ABG O2 Saturation 86.1 % ABG Base Excess -1.1 (-2.0-2.0) mmol/L Jean-Claude Test Positive (POSITIVE) O2 Liters/Min 4 Sodium 136 (136-145) mmol/L Potassium 4.7 (3.5-5.1) mmol/L Chloride 104 (98-107) mmol/L Carbon Dioxide 26.2 (21.0-32.0) mmol/L Anion Gap 10.5 BUN 40.0 H (7.0-18.0) mg/dL Creatinine 1.39 H (0.55-1.02) mg/dL Est GFR ( Amer) 45 L (>=60 mL/min/1.73m^2) Est GFR (Non-Af Amer) 37 L (>=60 mL/min/1.73m^2) BUN/Creatinine Ratio 28.8 Glucose 229 H (74-106) mg/dL Lactate 2.1 H* (0.4-2.0) mmol/L Calcium 8.5 (8.5-10.1) mg/dL Magnesium 2.0 (1.8-2.4) mg/dL Total Bilirubin 0.5 (0.2-1.0) mg/dL AST 17 (15-37) U/L ALT 21 (14-59) U/L Alkaline Phosphatase 94 (46-116) U/L Troponin I High Sens 277.6 H* (4.0-51.3) pg/mL NT-Pro-B Natriuret Pep 1838.0 H* (<=900.0) pg/mL Total Protein 6.7 (6.4-8.2) g/dL Albumin 3.4 (3.4-5.0) g/dL Globulin 3.3 g/dL Albumin/Globulin Ratio 1.0 Lipase 26.0 (16.0-77.0) U/L 02/18/25 Range/Units 07:00 WBC (4.0-11.0) 10^3/uL RBC (4.20-5.40) 10^6/uL Hgb (12.0-16.0) g/dL Hct (36.0-48.0) % MCV (81.0-99.0) fL MCH (26.7-34.0) pg MCHC (29.9-35.2) g/dL RDW (11.0-15.0) % Plt Count (150-450) 10^3/uL MPV (9.5-13.5) fL Seg Neuts % (Manual) (43.0-75.0) Lymphocytes % (Manual) (20.5-60.0) % Monocytes % (Manual) (1.7-12.0) % Eosinophils % (Manual) (0.9-7.0) % Basophils % (Manual) (0.2-2.0) % Neutrophils # (Manual) (1.4-6.5) 10^3/uL Lymphocytes # (Manual) (1.20-3.80) 10^3/uL Monocytes # (Manual) (0.30-0.80) 10^3/uL Eosinophils # (Manual) (0.00-0.70) 10^3/uL Basophils # (Manual) (0.00-0.10) 10^3/uL PT (9.0-11.6) sec INR Puncture Site ABG pH (7.350-7.450) ABG pCO2 (35.0-45.0) mmHg ABG pO2 (80.0-100.0) mmHg ABG HCO3 (22.0-26.0) mmol/L ABG O2 Saturation % ABG Base Excess (-2.0-2.0) mmol/L Jean-Claude Test (POSITIVE) O2 Liters/Min Sodium (136-145) mmol/L Potassium (3.5-5.1) mmol/L Chloride (98-107) mmol/L Carbon Dioxide (21.0-32.0) mmol/L Anion Gap BUN (7.0-18.0) mg/dL Creatinine (0.55-1.02) mg/dL Est GFR ( Amer) (>=60 mL/min/1.73m^2) Est GFR (Non-Af Amer) (>=60 mL/min/1.73m^2) BUN/Creatinine Ratio Glucose (74-106) mg/dL Lactate (0.4-2.0) mmol/L Calcium (8.5-10.1) mg/dL Magnesium (1.8-2.4) mg/dL Total Bilirubin (0.2-1.0) mg/dL AST (15-37) U/L ALT (14-59) U/L Alkaline Phosphatase (46-116) U/L Troponin I High Sens 600.6 H* (4.0-51.3) pg/mL NT-Pro-B Natriuret Pep (<=900.0) pg/mL Total Protein (6.4-8.2) g/dL Albumin (3.4-5.0) g/dL Globulin g/dL Albumin/Globulin Ratio Lipase (16.0-77.0) U/L Imaging Data Chest x-ray: Radiologist's impression: Enlarged heart size, central pulmonary vascular congestion with mild edema ECG Data Attestation: I personally reviewed and interpreted this ECG as follows: (EKG on my interpretation shows sinus rhythm with ST depression laterally) Critical Care Time Critical Care Time Critical Care Time: Yes Total Critical Care Time: 40 Attestation: Due to the high probability of sudden and clinically significant deterioration in the patient's condition he/she required the highest level of my preparedness to intervene urgently I provided critical care time including documentation time, medication orders and management, reevaluation, vital sign assessment, ordering and reviewing of lab tests, ordering and reviewing of x-ray studies, and admission orders. Aggregate critical care time is 40 minutes including only time during which I was engaged in work directly related to his/her care and did not include time spent treating other patients simultaneously. Discharge Plan Discharge Chief Complaint: Shortness of Breath/Dyspnea Clinical Impression: Pulmonary edema, Left lower lobe pulmonary infiltrate, Hypoxia, Non-ST elevation CA (NSTEMI) Patient Disposition: [facility] Time of Disposition Decision: 07:38 Discharge Location: [facility] Condition: Fair
[2025-02-18] MEDS: HEPARIN SODIUM,PORCINE/D5W 25,000 UNIT/500 ML IV.SOLN 15 UNIT IV (09:24)
[2025-02-18] MEDS: HEPARIN SODIUM (PORCINE) 5,000 UNIT/ML VIAL 2400 UNIT IV (09:24)
[2025-02-18 09:52] LABS: Lactate/Lactic Acid 1.3 mmol/L (0.4-2.0)
== END 2025-02-18 11:02 | disposition short-term general hospital (02) ==
PROVIDERS: Emergency Medicine; Emergency Provider Emergency Medicine; PCP Internal Medicine
DX: I21.4 Non-ST elevation (NSTEMI) myocardial infarction (principal); J81.1 Chronic pulmonary edema; R06.02 Shortness of breath; Z90.49 Acquired absence of other specified parts of digestive tract; Z90.710 Acquired absence of both cervix and uterus; Z95.1 Presence of aortocoronary bypass graft; Z79.01 Long term (current) use of anticoagulants; R91.8 Other nonspecific abnormal finding of lung field; J45.909 Unspecified asthma, uncomplicated
CPT/HCPCS: 36415; 36600; 71045; 80053; 82805; 83605; 83690; 83735; 83880; 84484; 85007; 85027; 85610; 87040; 93005; 94640; 94660; 96365; 96366; 96368; 96375; 99291; 99292; J1644; J1885; J1938; J3475

== ENCOUNTER 2025-03-03 12:29 | Outpatient (OUT) | payer MEDICARE, BC, SELFPAY ==
--- NOTE | 2025-03-03 12:35 | MM_ITS ---
Patient Name: MARIMAR MCDANIEL MR#: [id number] : 1955 Exam Date: 03/03/2025 Ordering Doctor: DR CHAMP CHRISTENSEN M.D. RADIOLOGY REPORT PROCEDURE: MM TOMOSYNTHESIS SCREENING BI COMPARISON: MG MAMM SCREEN LIZETH W CAD, 08/23/2020. MG MAMM SCREEN LIZETH W CAD, 01/18/2019. MG MAMM SCREEN LIZETH W CAD, 10/17/2017. MG MAMM LIZETH SCRN W CAD DIG, 06/12/2015. INDICATIONS: screening for malignant neoplasm of breast Calculator Name NCI Breast Cancer Risk Assessment Tool 5 Year Breast Cancer Risk 3.10% Lifetime Breast Cancer Risk 8.90% Personal Breast Cancer No Personal Ovarian Cancer No Treatments None Family Cancers Mother with breast cancer at age 50; Mother with ovarian cancer at age 50. LOCATION: [facility] BREAST COMPOSITION: There are scattered areas of fibroglandular density. FINDINGS: DIAGNOSTIC CATEGORY 0--INCOMPLETE: NEED ADDITIONAL IMAGING EVALUATION. LEFT BREAST: No significant suspicious finding. RIGHT BREAST: Focal asymmetry upper-outer quadrant right breast, anterior depth. RECOMMENDATIONS: ADDITIONAL MAMMOGRAPHIC VIEWS REQUIRED: RIGHT BREAST - spot-compression/true lateral views, possible ultrasound are recommended. PLEASE NOTE: A NORMAL MAMMOGRAM DOES NOT EXCLUDE THE POSSIBILITY OF BREAST CANCER. A CLINICALLY SUSPICIOUS PALPABLE LUMP SHOULD BE BIOPSIED. Dictated by: Julio Cesar Erwin DO on 03/03/2025 at 16:31 Approved by: Julio Cesar Erwin DO on 03/03/2025 at 16:34
== END 2025-03-03 12:30 | disposition home or self-care (01) ==
LOC: MAMMO 12:30
PROVIDERS: PCP Internal Medicine; Visit Provider Internal Medicine
DX: Z12.31 Encounter for screening mammogram for malignant neoplasm of breast (principal); Z80.3 Family history of malignant neoplasm of breast; Z80.41 Family history of malignant neoplasm of ovary; R92.8 Other abnormal and inconclusive findings on diagnostic imaging of breast
CPT/HCPCS: 77063; 77067

== ENCOUNTER 2025-03-07 13:04 | Outpatient (OUT) | payer MEDICARE, BC, SELFPAY | END 2025-03-07 13:05 | disposition home or self-care (01) | LOC: US 13:04 | PROVIDERS: PCP Internal Medicine; Visit Provider Internal Medicine Interventional Cardiology | DX: I65.23 Occlusion and stenosis of bilateral carotid arteries (principal) | CPT/HCPCS: 93880 ==

== ENCOUNTER 2025-05-03 12:45 | Emergency (ER) | payer MEDICARE, BC, SELFPAY ==
[2025-05-03 12:52] VITALS: BP 110/66; PULSE 70; TEMP 36.6; O2SAT 98; BMI 32.0
--- NOTE | 2025-05-03 13:05 | ED.GENADUL1 ---
HPI HPI - General Adult General Chief complaint: Back Pain/Injury Stated complaint: MUSCLE SPASM Time Seen by Provider: 05/03/25 12:47 Source: patient Mode of arrival: cart Limitations: no limitations History of Present Illness HPI narrative: 69-year-old female presents for muscle spasms in her back. She was standing and there was no injury when this happened. It hurts more to move. She states that this has been happening on and off for 6 months and she has had x-rays of her back several months ago. No weakness or numbness in her legs. No dysuria or hematuria. Patient states this is muscle cramps, I have had it before. Related Data Home Medications ?Medication ?Instructions ?Recorded ?Confirmed apixaban 5 mg tablet (Eliquis) 5 mg PO BID 02/08/24 02/18/25 atorvastatin 80 mg tablet 80 mg PO DAILY 02/08/24 02/18/25 citalopram 20 mg tablet 20 mg PO DAILY 02/08/24 02/18/25 clopidogrel 75 mg tablet 75 mg PO DAILY 02/08/24 02/18/25 gabapentin 300 mg capsule 300 mg PO BID 02/08/24 02/18/25 insulin regular human 100 unit/mL 10 unit subcut AC 02/08/24 02/18/25 injection solution (Novolin R Regular U-100 Insulin) lisinopril 20 mg tablet 20 mg PO DAILY 02/08/24 02/18/25 potassium chloride 20 mEq 20 meq PO BID 02/08/24 02/18/25 tablet,extended release(part/cryst) (Klor-Con M) amlodipine 10 mg tablet 10 mg PO .QD 02/18/25 02/18/25 carvedilol 25 mg tablet 25 mg PO Q12H 02/18/25 02/18/25 diclofenac sodium 1 % topical gel 4 g topical QID 02/18/25 02/18/25 (Voltaren Arthritis Pain) ferrous sulfate 325 mg (65 mg 325 mg PO DAILY 02/18/25 02/18/25 iron) tablet (Neftaly-Time) furosemide 40 mg tablet 40 mg PO QAM 02/18/25 02/18/25 hydralazine 25 mg tablet 25 mg PO Q12H 02/18/25 02/18/25 insulin glargine 100 unit/mL (3 80 unit subcut .QHS 02/18/25 02/18/25 mL) subcutaneous pen (Lantus Solostar U-100 Insulin) loratadine 10 mg capsule (Allergy 10 mg PO DAILY 02/18/25 02/18/25 Relief (loratadine)) Previous Rx's ?Medication ?Instructions ?Recorded methocarbamol 500 mg tablet 500 mg PO Q8H PRN pain #20 tabs 05/03/25 Allergies Allergy/AdvReac Type Severity Reaction Status Date / Time Penicillins Allergy Severe Hives Verified 05/03/25 12:51 Opioid HPI Opioid Management Most Recent Opioid Data: Last Pain Scale 7 Today, 12:52 Last Pain Intensity 0 02/09/24, 09:27 Last ORT Total Score 3 02/08/24, 16:51 Last ORT Risk Category Low Risk 02/08/24, 16:51 Review of Systems ROS Narrative A ten point review of systems is negative except as noted above. [facility] Medical History (Updated 05/03/25 @ 14:36 by Daquan Mckeon MD) Hypoglycemia ?E16.2 - Hypoglycemia, unspecified (ICD-10) EVA (acute kidney injury) ?N17.9 - Acute kidney failure, unspecified (ICD-10) Hypotension ?I95.9 - Hypotension, unspecified (ICD-10) Hypertension ?I10 - Essential (primary) hypertension (ICD-10) Hyperlipidemia ?E78.5 - Hyperlipidemia, unspecified (ICD-10) Colon cancer ?C18.9 - Malignant neoplasm of colon, unspecified (ICD-10) Heart disease ?I51.9 - Heart disease, unspecified (ICD-10) Diabetes ?E11.9 - Type 2 diabetes mellitus without complications (ICD-10) Surgical History (Updated 02/08/24 @ 16:43 by Letty Saleem) History of cholecystectomy ?Z90.49 - Acquired absence of other specified parts of digestive tract (ICD-10) History of hysterectomy ?Z90.710 - Acquired absence of both cervix and uterus (ICD-10) History of partial surgical removal of colon ?Z90.49 - Acquired absence of other specified parts of digestive tract (ICD-10) History of appendectomy ?Z90.49 - Acquired absence of other specified parts of digestive tract (ICD-10) 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.1 - Presence of aortocoronary bypass graft (ICD-10) Family History (Updated 02/08/24 @ 16:45 by Letty Saleem) Father Family history of CHF (congestive heart failure) Family history of myocardial infarction Mother Family history of cancer Family history of diabetes mellitus Sister Family history of diabetes mellitus Family history of cancer Brother Family history of myocardial infarction Family history of stroke Social History (Updated 02/08/24 @ 16:46 by Letty Saleem) Within the past year, how often did you have a drink containing alcohol: never Score interpretation: A score less than 3 is consistent with normal alcohol consumption. Smoking status: Never smoker Non-prescribed substance use: denies use Previous occupational history: retired Highest level of school completed/degree received: 11th grade Are you now , , , , never or living with a partner: In a typical week, how many times do you talk on the telephone with family, friends, or neighbors: twice per week How often do you get together with friends or relatives: twice per week How often do you attend confucianism or taoism services: never Do you belong to any clubs or organizations such as confucianism groups unions, [employer] or athletic groups, or school groups: no Total score: 2 Score interpretation: A score of greater than or equal to 2 indicates the lowest level of social isolation. Little interest or pleasure in doing things: not at all Feeling down, depressed, or hopeless: not at all Feel stressed/tense/nervous/anxious/difficulty sleeping: not at all Do you think of yourself as: straight/heterosexual Gender Identity: female Exam Narrative Exam Narrative: Nurses note and vital signs reviewed and patient is not hypoxic. General: The patient appears in no apparent distress. Skin: Warm, dry, no pallor noted. There is no rash noted. Head: Normocephalic, atraumatic Eye: Normal conjunctiva, no drainage Ears, Nose, Mouth, and Throat: oral mucosa is moist. Nares patent. Cardiovascular: Regular Rate and Rhythm Respiratory: Patient is in no distress, no accessory muscle use, lungs are clear to auscultation, no wheezing, rales or rhonchi Back: No bruise or rash GI: Soft and nontender Musculoskeletal: The patient has no evidence of calf tenderness, no pitting edema, symmetrical pulses noted bilaterally Neurological: A&O, normal speech Psychiatric: Cooperative Constitutional Vital Signs, click to edit/add: Last Vital Signs Temp 98 F 05/03/25 12:52 Pulse 70 05/03/25 12:52 Resp 20 05/03/25 12:52 BP 110/66 05/03/25 12:52 Pulse Ox 98 05/03/25 12:52 Course Vital Signs Vital signs: Vital Signs Temperature 98 F 05/03/25 12:52 Pulse Rate 70 05/03/25 12:52 Respiratory Rate 20 05/03/25 12:52 Blood Pressure 110/66 05/03/25 12:52 Pulse Oximetry 98 05/03/25 12:52 Temperature 98 F 05/03/25 12:52 Pulse Rate 70 05/03/25 12:52 Respiratory Rate 20 05/03/25 12:52 Blood Pressure 110/66 05/03/25 12:52 Pulse Oximetry 98 05/03/25 12:52 Medical Decision Making MDM Narrative Medical decision making narrative: X-ray showed no acute findings and she is feeling improved and is discharged home on Robaxin. At this point I do not have any clinical suspicion of acute intra-abdominal pathology. Treatment diagnosis and follow-up were discussed with the patient. Differential Diagnosis Differential Diagnosis: Muscle spasm, compression fracture Imaging Data Lumbar x-ray: Radiologist's impression: ITS Impressions Lumbar Spine X-Ray 05/03/25 13:46 IMPRESSION: No fracture or subluxation. Mild multilevel degenerative changes noted as above. Impression dictated by: Mian Dumont M.D. 05/03/2025 2:17 PM Dictation Location: [place] [address] Electronically authenticated by: [id number] Y Date: 05/03/2025 14:17 Discharge Plan Discharge Chief Complaint: Back Pain/Injury Clinical Impression: Muscle spasm Patient Disposition: Home, Self-Care Time of Disposition Decision: 14:36 Condition: Good Mode of Transportation: Private Vehicle Prescriptions / Home Meds: New methocarbamol 500 mg tablet 500 mg PO Q8H PRN (Reason: pain) Qty: 20 0RF No Action Eliquis 5 mg tablet 5 mg PO BID clopidogrel 75 mg tablet 75 mg PO DAILY lisinopril 20 mg tablet 20 mg PO DAILY atorvastatin 80 mg tablet 80 mg PO DAILY citalopram 20 mg tablet 20 mg PO DAILY Novolin R Regular U100 Insulin 100 unit/mL solution 10 unit subcut AC Patient Comments: TID before meals gabapentin 300 mg capsule 300 mg PO BID potassium chloride [Klor-Con M20] 20 mEq tablet,ER particles/crystals 20 meq PO BID furosemide 40 mg tablet 40 mg PO QAM carvedilol 25 mg tablet 25 mg PO Q12H Allergy Relief (loratadine) 10 mg capsule 10 mg PO DAILY hydralazine 25 mg tablet 25 mg PO Q12H amlodipine 10 mg tablet 10 mg PO .QD insulin glargine [Lantus Solostar U-100 Insulin] 100 unit/mL (3 mL) insulin pen 80 unit SUBCUT .QHS diclofenac sodium [Voltaren Arthritis Pain] 1 % gel 4 g topical QID Rx Instructions: apply to single knee, ankle, foot; for foot includes sole/toes/top of foot ferrous sulfate [Neftaly-Time] 325 mg (65 mg iron) tablet 325 mg PO DAILY Patient Comments: take one tab every other day Print Language: Thai Instructions: Muscle Spasm (ED) Referrals: CHAMP CHRISTENSEN [Primary Care Provider, Internal Medicine] - 1 week
[2025-05-03] MEDS: ORPHENADRINE 60 MG/2 ML VIAL IM (13:11)
--- NOTE | 2025-05-03 13:46 | XR_ITS ---
The [place] [id number] Patient Name: MARIMAR MCDANIEL MRN: [id number] date: 1955 Sex: F Assigned Patient Location: ER Current Patient Location: ER Accession/Order Number: [id number] Exam Date: 05/03/2025 14:15 Report Date: 05/03/2025 14:17 At the request of: RODRIGO CARR MD Procedure: XR lumbar spine 2-3V XR lumbar spine 2-3V 05/03/2025 1:49 PM SIGNS AND SYMPTOMS: Chronic low back pain PROTOCOLS: Frontal and lateral radiographs of the lumbar spine COMPARISON: None FINDINGS: There is a mild levoconvex curvature. The bones are otherwise in anatomic alignment. The vertebral body heights are maintained.. There is no fracture or destructive lesion. There is mild intervertebral disc height loss at L1-L2, L3-4, L4-5, and L5-S1. There is accompanying facet hypertrophy. The sacrum and sacroiliac joints are normal. There is evidence of prior cholecystectomy. Atherosclerotic changes are noted throughout the abdominal aorta. XR/XR lumbar spine 2-3V IMPRESSION: No fracture or subluxation. Mild multilevel degenerative changes noted as above. Impression dictated by: Mian Dumont M.D. 05/03/2025 2:17 PM Dictation Location: [place] [address] Electronically authenticated by: [id number] Y Date: 05/03/2025 14:17
== END 2025-05-03 14:50 | disposition home or self-care (01) ==
PROVIDERS: Emergency Provider Emergency Medicine; PCP Internal Medicine
DX: M62.830 Muscle spasm of back (principal); Z90.49 Acquired absence of other specified parts of digestive tract; Z90.710 Acquired absence of both cervix and uterus; Z95.1 Presence of aortocoronary bypass graft
CPT/HCPCS: 72100; 96372; 99284; J2360

== ENCOUNTER 2025-11-07 00:16 | Inpatient (IN) | payer MEDICARE, BC, SELFPAY ==
[2025-11-07] VITALS (41 sets, daily range): BP systolic 149–200; BP diastolic 61–112; PULSE 62–85; TEMP 36.6–37.3; O2SAT 90–96; BMI 32.0; BMI 33.1
--- OUTSIDE RECORDS SUMMARY | 2025-11-07 00:40 | XMS_ITS | Clinical Summary ---
Author Organization [facility] Address [address] [place] [address] Care Team Providers Care Promotional Marketing Analyst Name Role Phone Nik Bell MD Primary Care Provider [phone] Nik Bell MD Unavailable [phone] Lesa Browne LPN Unavailable Allergies Active AllergyReactionsCriticalityNoted DateCommentsPenicillinsHives,Unknown 10/28/2014 childhood-swelling Medications MedicationSigDispense QuantityRefillsLast FilledStart DateEnd DateStatus insulin pen needle (B-D ULTRAFINE III SHORT PEN) 31G X 8 mm misc Indications:Type 2 diabetes mellitus with hyperglycemia, with long-term current use of insulin (HCC)USE DIRECTED EVERY DAY WITH BASAGLAR 100 each ctive Continuous Glucose Communication Assistant (Dexcom G7 Communication Assistant) device Indications:Type 2 diabetes mellitus with hyperglycemia, with long-term current use of insulin (HCC),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 (HCC),Polyneuropathy due to type 2 diabetes mellitus (HCC),Poorly controlled diabetes mellitus (HCC), 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 associated with type 2 diabetes mellitus (HCC)1 Device yearly 1 each 03/05/2024ctive amLODIPine (Norvasc) 10 MG tablet 05/11/2024ctive lisinopril 20 MG tablet Take 20 mg by mouth05/10/2024ctive atorvastatin (Lipitor) 80 MG tablet Indications:Mixed hyperlipidemiaTAKE 1 TABLET BY MOUTH EVERY DAY 100 tablet 5Active Apixaban Starter Pack 5 MG tablet therapy pack Take 5 mg by mouth in the morning and 5 mg in the evening.Active carvedilol (Coreg) 12.5 MG tablet TAKE 1 TABLET BY MOUTH TWICE DAILY WITH BREAKFAST AND WITH EVENING MEAL 02/22/2025tive diclofenac sodium 1 % gel APPLY 4 GRAMS TO ABDOMINAL WALL FOUR TIMES DAILY BQTYQB8702/16/2025tive hydrALAZINE (Apresoline) 100 MG tablet 5Active dabigatran etexilate (Pradaxa) 150 MG capsule Take 150 mg by mouth in the morning and 150 mg before bedtime. Do not crush or chew.Active methocarbamol (Robaxin) 500 MG tablet Take 500 mg by mouth every 8 (eight) hours if aolknp1205/03/2025tive citalopram (CeleXA) 20 MG tablet Indications:Generalized anxiety disorderTake 1 tablet (20 mg) by mouth Daily 100 tablet tive Continuous Glucose Sensor (Dexcom G7 Sensor) [facility] [place] Indications:Type 2 diabetes mellitus with hyperglycemia, with long-term current use of insulin ([facility])1 Device by In Vitro route every 14 (fourteen) days 8 each tive dicyclomine (Bentyl) 10 MG capsule Indications:Irritable bowel syndrome with both constipation and diarrheaTake 1 capsule (10 mg) by mouth in the morning and 1 capsule (10 mg) at noon and 1 capsule (10 mg) in the evening and 1 capsule (10 mg) before bedtime. 200 capsule tive ferrous sulfate 325 (65 Fe) MG tablet Indications:Asthma without status asthmaticus without complication, unspecified asthma severity, unspecified whether persistent ([facility])Take 1 tablet (325 mg) by mouth every other day 50 tablet 10/18/2025tive furosemide (Lasix) 40 MG tablet Indications:Edema, unspecified typeTake 1 tablet (40 mg) by mouth in the morning and 1 tablet (40 mg) before bedtime. 180 tablet ctive insulin glargine (Lantus) 100 UNIT/ML pen Indications:Type 2 diabetes mellitus with hyperglycemia, with long-term current use of insulin ([facility])Inject 50 Units under the skin at bedtime 45 mL ctive loratadine (Claritin) 10 MG tablet Indications:Allergy, sequelaTake 1 tablet (10 mg) by mouth Daily 90 tablet 6Active insulin regular (NovoLIN R) 100 UNIT/ML injection Indications:Type 2 diabetes mellitus with hyperglycemia, with long-term current use of insulin ([facility])Inject 0.22 mL (22 Units) under the skin in the morning and 0.22 mL (22 Units) at noon and 0.22 mL (22 Units) in the evening. Inject with meals. 40 mL tive pantoprazole (ProtoNix) 40 MG EC tablet Indications:Gastroesophageal reflux disease without esophagitisTake 1 tablet (40 mg) by mouth in the morning. Take before meals. 90 tablet ctive potassium chloride CR (Klor-Con M20) 20 MEQ ER tablet Indications:Benign essential hypertensionTake 1 tablet (20 mEq) by mouth Daily 90 tablet ctive gabapentin (Neurontin) 300 MG capsule Indications:Polyneuropathy due to type 2 diabetes mellitus ([facility])Take 1 capsule (300 mg) by mouth in the morning and 1 capsule (300 mg) before bedtime. 180 capsule ctive Insulin Syringe 31G X 5/16 1 ML misc Indications:Type 2 diabetes mellitus with hyperglycemia, with long-term current use of insulin ([facility])Inject 1 Syringe as directed in the morning and 1 Syringe before bedtime. 200 each tive Insulin Syringe 31G X 5/16 1 ML misc Indications:Type 2 diabetes mellitus with hyperglycemia, with long-term current use of insulin ([facility])USE DIRECTED TO ADMINISTER INSULIN TWICE DAILY 200 each Discontinued(Reorder) gabapentin (Neurontin) 300 MG capsule Indications:Polyneuropathy due to type 2 diabetes mellitus ([facility])Take 1 capsule (300 mg) by mouth in the morning and 1 capsule (300 mg) before bedtime. 180 capsule Discontinued(Reorder) citalopram (CeleXA) 20 MG tablet Indications:Generalized anxiety disorderTake 1 tablet (20 mg) by mouth Daily 100 tablet Discontinued(Reorder) furosemide (Lasix) 40 MG tablet Indications:Edema, unspecified typeTAKE 1 TABLET BY MOUTH EVERY DAY 90 tablet Discontinued(Reorder) Continuous Glucose Sensor (Dexcom G7 Sensor) [facility] Indications:Type 2 diabetes mellitus with hyperglycemia, with long-term current use of insulin (HCC)1 UNITS EVERY 10 (TEN) DAYS 9 each Discontinued(Reorder) loratadine (Claritin) 10 MG tablet Take 10 mg by mouth in the morning.Discontinued(Reorder) pantoprazole (ProtoNix) 40 MG EC tablet Take 40 mg by mouth in the morning. Take before meals. Discontinued(Reorder) dicyclomine (Bentyl) 10 MG capsule Indications:Irritable bowel syndrome with both constipation and diarrheaTake 1 capsule (10 mg) by mouth in the morning and 1 capsule (10 mg) at noon and 1 capsule (10 mg) in the evening and 1 capsule (10 mg) before bedtime. 200 capsule Discontinued(Reorder) NovoLIN R 100 UNIT/ML injection Indications:Type 2 diabetes mellitus with hyperglycemia, with long-term current use of insulin (HCC)INJECT 22 UNITS UNDER THE SKIN IN THE MORNING, 22 UNITS AT NOON AND 22 UNITS IN THE EVENING WITH MEALS 40 mL Discontinued(Reorder) ferrous sulfate 325 (65 Fe) MG tablet Indications:Asthma without status asthmaticus without complication, unspecified asthma severity, unspecified whether persistent (HCC)Take 1 tablet (325 mg) by mouth every other day 50 tablet Discontinued(Reorder) insulin glargine (Lantus) 100 UNIT/ML pen Indications:Type 2 diabetes mellitus with hyperglycemia, with long-term current use of insulin (HCC)Inject 45 Units under the skin at bedtime 40.5 mL Discontinued(Reorder) potassium chloride CR (Klor-Con M20) 20 MEQ ER tablet Indications:Benign essential hypertensionTAKE 1 TABLET(20 MEQ) BY MOUTH DAILY 90 tablet Discontinued(Reorder) Active Problems ProblemNoted DateDiagnosed DateVH (vitreous hemorrhage), right07/12/2025History of colon qfjuqv6805/25/2025Upper abdominal pain05/25/2025Iron deficiency anemia 05/25/2025Screening for colon docckf0405/25/2025hronic wcnqccstqkhbuto57/16/2025 Cardiovascular xmgxpda1504/26/2025HTN (hypertension)04/26/2025arotid stenosis 03/28/2025 Overview (03/28/2025): Problem List clean-up per request of Phys. EHR Cmte PCO (posterior capsular opacification), /19/1273Cwgtlgmh71/19/2025 Acute igmicy4702/18/2025New onset of congestive heart pgrpsaq2502/18/2025NSTEMI (non-ST elevated myocardial infarction)02/18/2025Epiretinal membrane (ERM) of both eyes02/15/2025Dry eyes02/15/20251673Nwubuendcalg18/15/2024Diabetes mellitus 05/10/2024 Overview (09/22/2024): type 2 S/P CABG x 4Acute asthmatic lnysynilje99/15/2023cute combined systolic and diastolic heart oopitlm8406/24/20239045Qgnaywlsvvtkwwqts96/15/2023hronic ulcer of left foot with fat layer zaidkco1206/24/2023iabetic foot ulcer06/24/2023 Dry uopiyubb64/15/2023therosclerosis of [place] coronary artery of [place] heart with angina pectoris with documented spasm06/04/2023enign essential jxegyscggtrj12/26/2023eneralized anxiety xedjauon54/26/2023History of tgzqaaycshuo35/26/2023IBS (irritable bowel syndrome)06/04/2023Mixed luixoxceuykgxi82/26/2023aroxysmal atrial okzhwuchwhle47/26/2023eripheral vascular txwvgxb0306/04/2023olyneuropathy due to type 2 diabetes mellitus 06/04/2023oorly controlled diabetes zwriktyy37/26/2023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 associated with type 2 diabetes jesodpfs25/26/2023Type 2 diabetes mellitus with nkgkarzrwlwtc54/26/2023 Gphsqkrhuw05/26/2023roliferative diabetic retinopathy associated with type 2 diabetes fyjmlnwk12/17/2021ortic stenosis, lstqpd8709/01/2019Asthma without status unkbssfrqyd13/05/2018Estrogen tpvteotsec86/15/2017Atrophic gastritis 10/23/20156312Rdsxobqlhd69/14/2013Dehiscence of operative wound04/15/2013 Overview (06/24/2023): WOUND CLOSURED 06/22/13 Staphylococcal infectious jxtyvjd1503/17/2013Infection of bone03/02/2013Mechanical complication of internal orthopedic device, implant or graft02/23/2013 Overview (06/24/2023): DELAY WOUND HEALING Dupmnqkwfdycw82/11/2013 Overview (06/24/2023): STERNUM S/P DEBRIDEMENT AND FLAP COVERAGE 02/08/13 Arteriosclerosis of arterial coronary artery bypass graft01/05/2013Chest pain 12/29/2012Diverticulosis of colon03/29/20104174Kgigucuz48/20/2010Pain in soft tissues of limb03/29/2010 Resolved Problems ProblemNoted DateDiagnosed DateResolved DateVitreous hemorrhage of right eye /ataract mature, total /06/2025Type 2 diabetes mellitus without mpjtnaxvwtfbp85 Encounters DateTypeDepartmentCare WgauZnvrpigzlsf03/16/2025Refill [facility] [address] [place] [address] Nik Bell MD Type 2 diabetes mellitus with hyperglycemia, with long-term current use of insulin ([facility])10/18/2025 11:00 AM ESTOffice Visit [facility] [address] [place] [phone] Johnna Guerrero, TOURIST AGENT Gastroesophageal reflux disease without esophagitis (Primary Dx); Type 2 diabetes mellitus with stage 3 chronic kidney disease, with long-term current use of insulin, unspecified whether stage 3a or 3b CKD ([facility]); Generalized anxiety disorder; Type 2 diabetes mellitus with hyperglycemia, with long-term current use of insulin ([facility]); Irritable bowel syndrome with both constipation and diarrhea; Asthma without status asthmaticus without complication, unspecified asthma severity, unspecified whether persistent ([facility]); Edema, unspecified type; Benign essential hypertension; Polyneuropathy due to type 2 diabetes mellitus ([facility]); Allergy, dggqgsu1210/18/2025amboo flowsheet [facility] [address] [place] [address] Johnna Guerrero, OSORIO 10/18/20259163Kkhnch28/14/2025Patient Outreach [facility] [address] [place] [address] Lesa Browne LPN 09/20/2025 10:30 AM ESTOffice Visit [facility] [address] [place] [address] Johnna Guerrero, OSORIO Acute non-recurrent pansinusitis (Primary Dx)09/20/2025amboo flowsheet [facility] [address] [place] [address] Johnna Guerrero, OSORIO 09/20/20252802Nchlje15/06/2025 3:20 PM ESTOffice Visit [facility] [address] [facility] [address] [place] [address] Alexis Carranza DPM Achilles tendinitis, right leg (Primary Dx); Contracture of right ankle; Type 2 diabetes mellitus with hyperglycemia, with long-term current use of insulin ([facility]); Pain due to onychomycosis of toenails of both feet09/15/2025amboo flowsheet [facility] [address] [facility] [address] [place] [address] Alexis Carranza DPM 09/15/20255554Jzelto15/17/2025Patient Outreach [facility] [address] [place] [address] Lesa BrowneJAMESON 08/24/2025 11:30 AM EDTOffice Visit [facility] [address] [facility] [address] [place] [phone] Johnna Guerrero NP Abnormal breast exam (Primary Dx); Encounter for screening mammogram for malignant neoplasm of breast; Type 2 diabetes mellitus with diabetic chronic kidney disease (HCC); Chronic kidney disease, stage 3b (CMS-HCC); Acute non-recurrent wtvfwmhtmsep45/15/2025amboo flowsheet [facility] [address] [facility] [address] [place] [address] Johnna Guerrero NP 08/24/20255565Ovmtub47/14/2025Refill [address] [place] [address] Johnna Guerrero NP Benign essential hypertensionfrom Last 3 Months Immunizations ImmunizationAdministration DatesNext DueInfluenza, High Dose Seasonal, Preservative Free08/28/2022,10/05/2020,08/10/2019Influenza, High-dose Seasonal, Quadrivalent, Preservative Free09/30/2024,08/28/2022Influenza, Seasonal, Quadrivalent, Xcnjgbbuif62/27/2021Influenza, injectable, quadrivalent, preservative free10/06/2020,09/25/2016,10/27/2014Influenza, seasonal, intradermal, preservative free08/25/2018,09/24/2017,10/02/2015Pneumococcal Polysaccharide DBZQ964412/06/2019,09/25/2016Tdap04/01/2024 Family History Medical HistoryRelationNameCommentsDiabetesOtherHypertensionOtherRelationName StatusCommentsFatherDeceasedMotherDeceasedOther Social History Tobacco UseTypesPacks/DayYears UsedDateSmoking Tobacco: FormerCigarettes Smokeless Tobacco: Never Tobacco Cessation:Counseling Given: Yes Alcohol UseStandard Drinks/WeekCommentsNever0 (1 standard drink = 0.6 oz pure alcohol)B1300 Health LiteracyAnswerDate RecordedHow often do you need to have someone help you when you read instructions, pamphlets, or other written material from your doctor or pharmacy?Dpawdz6211/24/2024PHQ-2AnswerDate Recorded Patient Health Questionnaire-2 Flsxw429CommentsUnknownSex and Gender InformationValueDate RecordedSex Assigned at BirthNot on fileLegal Sex Ekqafm2801/22/2023 6:45 PM EDTGender IdentityNot on fileSexual OrientationNot on file Last Filed Vital Signs Vital SignReadingTime TakenCommentsBlood Lxqbzvkc494/7210/18/2025 10:46 AM EST Svruh555910/18/2025 10:46 AM RRQKjghzpfgzdk23.6 ??C (97.8 ??F)08/24/2025 11:13 AM EDTRespiratory Nwzl655312/19/2024 10:46 AM ESTOxygen Ewkkyjlqem39%10/18/2025 10:46 AM ESTInhaled Oxygen Concentration--Pwtmed80.7 kg (178 lb)10/18/2025 10:46 AM BRTIffuhn606.5 cm (5' 2.4 )10/18/2025 10:46 AM ESTBody Mass Index32.14112/19/2024 10:46 AM EST Plan of Treatment DateTypeDepartmentCare Team (Latest Contact Info)Rteafwoehwn26/08/2026 2:00 PM ESTOffice Visit [facility] [address] [facility] [address] [place] [address] Alexis Carranza DPM [address] [address] 12/01/2025 3:40 PM ESTOffice Visit [facility] [address] [place] [phone] Alexis Carranza DPM [address] [address] 01/09/2026 1:15 PM ESTOffice Visit [facility] [address] [place] [phone] Elton Garcia DO [address] [place] [address] 01/19/2026 1:00 PM EDTOffice Visit [facility] [place] [facility] [address] [facility] [address] [place] [phone] Johnna Guerrero, TOURIST AGENT [address] [facility] [address] [place] [address] Health MaintenanceDue DateLast DoneCommentsPneumococcal Vaccine: 65+ Years (2 of 2 - PCV), 09/25/2016Influenza Vaccine (#1)2025 09/30/2024, 08/28/2022, 08/28/2022, Additional history existsDiabetes: Hemoglobin A1C/612/07/2025, 07/20/2025, 04/14/2025, Additional history sqkjzuKiqkwjgww56/24/202604/, 08/23/2020, 01/18/2019, Additional history existsDiabetes: Retinopathy Ipelwjczm72, 07/12/2025, 07/12/2025, Additional history existsDiabetes: Urine Protein Infdkxtbu72/10/2026 07/20/2025, 02/12/2024, 01/18/2020, Additional history existsFOBTDiscontinued 02/20/2025, 9264FkjfizgjqogWhhcfsiizjbb99/31/2025, 07/12/2021, 07/12/2021, Additional history existsColorectal Cancer ScreeningDiscontinuedCT Colonography DiscontinuedFIT-DNADiscontinuedFITDiscontinuedSigmoidoscopyDiscontinued Procedures Procedure NamePriorityDate/TimeAssociated DiagnosisCommentsPOCT GLYCOSYLATED HEMOGLOBIN (HGB A1C)Vdtpmgm0710/18/2025 10:53 AM EST Type 2 diabetes mellitus with stage 3 chronic kidney disease, with long-term current use of insulin, unspecified whether stage 3a or 3b CKD (HCC) MICROALBUMIN / CREATININE URINE PRSUBJvhgpox47/10/2025 11:04 AM EDT Poorly controlled diabetes mellitus (HCC) MM TOMOSYNTHESIS SCREENING BI03/03/2025 4:34 PM EDT DIABETIC RETINOPATHY SCREENING - OU - BOTH AYHPTsbswdz77/26/2025 OCC BLD IMMUNO SLCZOUQdpqqpl94/27/2022 WCMEHCUZSXDQxlbwfo06/02/2021 12:00 PM EDT from Last 3 Months or Most Recently Relevant to Health Maintenance Results * (ABNORMAL) POCT glycosylated hemoglobin (Hb A1C) docked device (10/18/2025 10:53 AM EST)ComponentValueRef RangeTest MethodAnalysis TimePerformed At Pathologist SignatureHemoglobin A1C8.2Specimen (Source)Anatomical Location / LateralityCollection Method / VolumeCollection TimeReceived TimeBloodVenous blood specimen / Lvvdgzv1310/18/2025 10:53 AM EST Narrative Authorizing ProviderResult TypeResult StatusJohnna Guerrero NPPOINT OF CARE TEST ENTER/EDIT ORDERABLESFinal Result * Microalbumin / creatinine, urine ratio (07/20/2025 11:04 AM EDT)ComponentValue Ref RangeTest MethodAnalysis TimePerformed AtPathologist SignatureCREATININE, RANDOM RMJLR8125 - 275 mg/dLQUESTALBUMIN, URINE0.4See Note: mg/dLQUESTComment: Reference Range: Reference Range Not established ALBUMIN/CREATININE RATIO, RANDOM URINE13<30 mg/g creatQUESTComment: The ADA defines abnormalities in albumin excretion as follows: Albuminuria Category ?Result (mg/g creatinine) Normal to Mildly increased <30 Moderately increased ? 30-299 Severely increased > OR = 300 The ADA recommends that at least two of three specimens collected within a 3-6 month period be abnormal before considering a patient to be within a diagnostic category. Specimen (Source)Anatomical Location / LateralityCollection Method / Volume Collection TimeReceived TimeUrineUrine specimen obtained by clean catch procedure / Vfpjkpl5507/20/2025 11:04 AM EDT07/20/2025 11:04 AM EDT Narrative [facility] - 07/21/2025 10:49 AM EDT FASTING:YES FASTING: YES Resulting Agency Comment Performing Organization Information ?Site ID: QPT ?Name: [facility] ?Address: [address] [place], [place] [address] , [address] [place] [id number] ?Director: Jensen Johnson MD Authorizing ProviderResult TypeResult StatusShjozef Guerrero NPLAB URINE ORDERABLESFinal ResultPerforming OrganizationAddressCity/State/ZIP CodePhone Number [facility] * MM TOMOSYNTHESIS SCREENING BI (03/03/2025 4:34 PM EDT)Anatomical Region LateralityModalityOtherSpecimen (Source)Anatomical Location / Laterality Collection Method / VolumeCollection TimeReceived Time03/03/2025 4:34 PM EDT Narrative 03/03/2025 4:35 PM EDT [facility] ?[address] ? [place] [address] ? Mammography Report ? Signed ? Patient: DIANN PATEL L ?MR#: [id number] ?? : 1955 ?Acct:[id number] ?? Age/Sex: 69 / F ?ADM Date: 03/03/ ?? Loc: MAMMO ? Attending Dr: NIK BELL ? Ordering Physician: NIK BELL ? Results: ? Date of Service: 03/03/25 ?Follow Up: ? Procedure(s): MM tomosynthesis screening BI ?? Accession Number(s): [id number] ? cc: NIK BELL ? Patient Name: ? DIANN PATEL ? MR#: [id number] ? : 1955 ? Exam Date: 03/03/2025 ?? Ordering Doctor: DR NIK BELL M.D. ? RADIOLOGY REPORT ? PROCEDURE: ? MM TOMOSYNTHESIS SCREENING BI ? COMPARISON: ? MG MAMM SCREEN LIZETH W CAD, 08/23/2020. ??MG MAMM SCREEN LIZETH W ?? CAD, 01/18/2019. ??MG MAMM SCREEN LIZETH W CAD, 10/17/2017. ??MG MAMM LIZETH SCRN W CAD ?? DIG, 06/12/2015. ? INDICATIONS: ? screening for malignant neoplasm of breast ? Calculator Name ? NCI Breast Cancer Risk Assessment Tool ?? 5 Year Breast Cancer Risk ? 3.10% ?? Lifetime Breast Cancer Risk ? 8.90% ?? Personal Breast Cancer ?No ?? Personal Ovarian Cancer ? No ?? Treatments ? None ?? Family Cancers ? Mother with breast cancer at age 50; Mother with ovarian ?? cancer at age 50. ? LOCATION: ? [facility] ? BREAST COMPOSITION: ? There are scattered areas of fibroglandular density. ? FINDINGS: ? DIAGNOSTIC CATEGORY 0--INCOMPLETE: NEED ADDITIONAL IMAGING EVALUATION. ? LEFT BREAST: ??No significant suspicious finding. ? RIGHT BREAST: ??Focal asymmetry upper-outer quadrant right breast, anterior ?? depth. ? RECOMMENDATIONS: ? ADDITIONAL MAMMOGRAPHIC VIEWS REQUIRED: RIGHT BREAST - spot-compression/true ?? lateral views, possible ultrasound are recommended. ? PLEASE NOTE: ??A NORMAL MAMMOGRAM DOES NOT EXCLUDE THE POSSIBILITY OF BREAST ?? CANCER. ??A CLINICALLY SUSPICIOUS PALPABLE LUMP SHOULD BE BIOPSIED. ? Dictated by: Julio Cesar Erwin DO on 03/03/2025 at 16:31 ? Approved by: Julio Cesar Erwin DO on 03/03/2025 at 16:34 ? Dictated By: ?Julio Cesar Erwin M.D. ? Signed By: ?03/03/25 1635 ? DD/ 1634 ? TD/TT: ? Operative Supervisor: Procedure Note Radiology, Radiologist, MD - 03/03/2025 [place] [address] Mammography Report Signed Patient: DIANN PATEL LMR#: [id number] : 1955cct:[id number] Age/Sex: 69 / FADM Date: 03/03/25 Loc: MAMMO Attending Dr: NIK BELL Ordering Physician: NIK BELLResults: Date of Service: 03/03/25Follow Up: Procedure(s): MM tomosynthesis screening BI Accession Number(s): [id number] cc: NIK BELL Patient Name: DIANN PATEL MR#: [id number] : 1955 Exam Date: 03/03/2025 Ordering Doctor: DR NIK BELL M.D. RADIOLOGY REPORT PROCEDURE: MM TOMOSYNTHESIS SCREENING BI COMPARISON: MG MAMM SCREEN LIZETH W CAD, 08/23/2020. MG MAMM SCREEN BILW CAD, 01/18/2019. MG MAMM SCREEN LIZETH W CAD, 10/17/2017. MG MAMM LIZETH SCRN WCAD DIG, 06/12/2015. INDICATIONS: screening for malignant neoplasm of breast Calculator Name NCI Breast Cancer Risk Assessment Tool 5 Year Breast Cancer Risk 3.10% Lifetime Breast Cancer Risk 8.90% Personal Breast Cancer No Personal Ovarian Cancer No Treatments None Family Cancers Mother with breast cancer at age 50; Mother withovarian cancer at age 50. LOCATION: [facility] BREAST COMPOSITION: There are scattered areas of fibroglandulardensity. FINDINGS: DIAGNOSTIC CATEGORY 0--INCOMPLETE: NEED ADDITIONAL IMAGING EVALUATION. LEFT BREAST: No significant suspicious finding. RIGHT BREAST: Focal asymmetry upper-outer quadrant right breast, anterior depth. RECOMMENDATIONS: ADDITIONAL MAMMOGRAPHIC VIEWS REQUIRED: RIGHT BREAST -spot-compression/true lateral views, possible ultrasound are recommended. PLEASE NOTE: A NORMAL MAMMOGRAM DOES NOT EXCLUDE THE POSSIBILITY OFBREAST CANCER. A CLINICALLY SUSPICIOUS PALPABLE LUMP SHOULD BE BIOPSIED. Dictated by: Julio Cesar Erwin DO on 03/03/2025 at 16:31 Approved by: Julio Cesar Erwin DO on 03/03/2025 at 16:34 Dictated By: Julio Cesar Erwin M.D. Signed By:03/03/25 1635 DD/ 1634 TD/TT: Operative Supervisor: Authorizing ProviderStephanieult TypeResfuad Bell MDCLINISYNC IMAGING Final Result * Diabetic Retinopathy Screening - OU - Both Eyes (01/05/2025)ComponentValueRef RangeTest MethodAnalysis TimePerformed AtPathologist SignatureRESULTSndr Anatomical RegionLateralityModalityHeadOtherSpecimen (Source)Anatomical Location / LateralityCollection Method / VolumeCollection TimeReceived Time 01/05/2025 Narrative Authorizing ProviderResult TypeResult Fidel Bell MDOPH PHOTOGRAPHY Final Result * OCC BLD IMMUNO SCREEN (07/06/2022)ComponentValueRef RangeTest MethodAnalysis TimePerformed AtPathologist SignatureOCCULT BLOODNEGATIVENEGATIVENOMS LEGACY EXTERNAL LABPERFORMING LAB:see noteNOMS LEGACY EXTERNAL LABComment:[address] Laboratory - [address] [place] [address] ,Ext. [phone] specimen (Source)Anatomical Location / LateralityCollection Method / VolumeCollection TimeReceived Time 07/06/2022 Narrative Authorizing Shericeult TypeResult Fidel SANTOS LABSFinal ResultPerforming OrganizationAddressCity/State/ZIP CodePhone Number [facility] * Colonoscopy (07/12/2021 12:00 PM EDT)Anatomical RegionLateralityModality EndoscopySpecimen (Source)Anatomical Location / LateralityCollection Method / VolumeCollection TimeReceived Time07/12/2021 12:00 PM EDT Narrative 07/12/2021 12:00 PM EDT PERFORMED AT [facility] LOCATION:[id number] polyp, diverticulosis - repeat 5 yrs. Procedure Note CONVERSION, GENERIC - 03/26/2023 PERFORMED AT [facility] LOCATION:[id number] polyp, diverticulosis - repeat 5 yrs. Authorizing ProviderResult TypeResult Fidel Bell MDENDOSCOPY PROCEDURE ORDERABLESFinal Result from Last 3 Months or Most Recently Relevant to Health Maintenance Insurance * Guarantor: Diann Patel TypeRelation to PatientDate of BirthPhone Billing AddressPersonal/QndvcqBmwg1955 [address] [address] Care Teams Team MemberRelationshipSpecialtyStart DateEnd Nik Bell MD [address] [facility] [address] [place] [address] PCP - GeneralInternal Medicine03/18/23 Nik Bell MD [address] [facility] [address] [place] [address] PCP - ACO Reach01/09/24 Lesa Browne LPN [address] [facility] [address] [place] [address] 02/01/25
--- OUTSIDE RECORDS SUMMARY | 2025-11-07 00:40 | XMS_ITS | Clinical Summary ---
Author Organization [facility] Address [address] [place] [address], [address] [place] [address] Care Team Providers Care Project Finance Analyst Name Role Phone Unavailable Primary Care Provider Unavailabl e Social History Tobacco UseTypesPacks/DayYears UsedDateSmoking Tobacco: Never Assessed CommentsUnknownSex and Gender InformationValueDate RecordedSex Assigned at Not on fileLegal UfvScglyd46/28/2013 8:37 PM ESTGender IdentityNot on fileSexual OrientationNot on file Plan of Treatment Not on file
--- OUTSIDE RECORDS SUMMARY | 2025-11-07 00:40 | XMS_ITS | Clinical Summary ---
Author Organization [facility] Address [address] [place] [address] Care Team Providers Care System Auditor Name Role Phone Charlene Mckinley MD Unavailable [phone] Social History Tobacco UseTypesPacks/DayYears UsedDateSmoking Tobacco: Never Assessed CommentsUnknownSex and Gender InformationValueDate RecordedSex Assigned at Not on fileLegal DgvDheceg49/30/2025 9:19 AM EDTGender IdentityNot on fileSexual OrientationNot on file Plan of Treatment Not on file Insurance Care Teams Team MemberRelationshipSpecialtyStart DateEnd Date Charlene Mckinley MD [address] [place] [address] [place] [address] ReferringGastroenterology05/09/25
--- OUTSIDE RECORDS SUMMARY | 2025-11-07 00:40 | XMS_ITS | Encounter Summary ---
Author Organization [facility] Address [address] [place] [address] Care Team Providers Care Etl Developer Name Role Phone Nik Bell MD Primary Care Provider [phone] Nik Bell MD Unavailable [phone] Lesa Browne LPN Unavailable Reason for Visit * ReasonOnset DateCommentsMed Pwautv6210/25/2025 Encounter Details DateTypeDepartmentCare Team (Latest Contact Info)Ppfcrrfyamy64/16/2025Refill [facility] [place] [facility] [address] [place] [place] [address] Nik Bell MD [address] [facility] [address] [place], [place] [id number] Type 2 diabetes mellitus with hyperglycemia, with long-term current use of insulin (HCC) Social History Tobacco UseTypesPacks/DayYears UsedDateSmoking Tobacco: FormerCigarettes Smokeless Tobacco: NeverAlcohol UseStandard Drinks/WeekCommentsNever0 (1 standard drink = 0.6 oz pure alcohol)B1300 Health LiteracyAnswerDate RecordedHow often do you need to have someone help you when you read instructions, pamphlets, or other written material from your doctor or pharmacy?Rarely 11/24/2024PHQ-2AnswerDate RecordedPatient Health Questionnaire-2 Score1 10/18/2025CommentsUnknownSex and Gender InformationValueDate RecordedSex Assigned at BirthNot on fileLegal ChgKsmdom76/15/2023 6:45 PM EDTGender Identity Not on fileSexual OrientationNot on filedocumented as of this encounter Plan of Treatment DateTypeDepartmentCare Team (Latest Contact Info)Kauvufmwswo30/08/2026 2:00 PM ESTOffice Visit [facility] [address] [place] [address] Alexis Carranza, DPM [address] [facility] 5 [place] [address] 12/01/2025 3:40 PM ESTOffice Visit [facility] [address] [place] [address] Alexis Carranza, DPM [address] [facility] 5 [place] [address] 01/09/2026 1:15 PM ESTOffice Visit [facility] [address] [place] [address] Elton Garcia, [address] [place] [address] 01/19/2026 1:00 PM EDTOffice Visit [facility] [place] [facility] [address] [place] [address] Johnna Guerrero, AUTOMATIC CENTRIFUGAL STATION OPERATOR [address] [place] [place] [address] documented as of this encounter Visit Diagnoses Diagnosis Type 2 diabetes mellitus with hyperglycemia, with long-term current use of insulin (HCC) documented in this encounter Additional Health Concerns AssessmentNoted TimePHQ-9 Depression Total Score: 1:00 PM EDT documented as of this encounter Care Teams Team MemberRelationshipSpecialtyStart DateEnd Date Nik Bell MD [address] [place] [place] [address] PCP - GeneralInternal Medicine03/18/23 Nik Bell MD [address] [address] [facility] - ACO Reach01/09/24 Lesa Browne LPN [address] [place] [address] 02/01/25documented as of this encounter
--- OUTSIDE RECORDS SUMMARY | 2025-11-07 00:40 | XMS_ITS | Clinical Summary ---
Author Organization [employer] [facility] tem Address [facility] [address] [place] [address] Care Team Providers Care Metallographic Technician Name Role Phone Nik Bell MD Primary Care Provider [phone] Allergies Active AllergyReactionsCriticalityNoted SfygVgnaxdfiDqbrtvhvifpMogmd54/02/2021 Medications MedicationSigDispense QuantityRefillsLast FilledStart DateEnd DateStatus LORazepam (ATIVAN) 0.5 mg tablet Take 0.5 mg by mouth every 8 (eight) hours as needed for anxiety.Active clopidogreL (PLAVIX) 75 mg tablet Take 75 mg by mouth daily.Active semaglutide (OZEMPIC) 1 mg/dose (2 mg/1.5 mL) pen injector Inject 1 mg under the skin once a week.Active potassium chloride (KLOR-CON) 20 mEq packet Take 20 mEq by mouth daily.Active amLODIPine (NORVASC) 5 mg tablet Take 5 mg by mouth daily.Active insulin regular (HumuLIN R,NovoLIN R) 100 unit/mL injection Inject 8 Units under the skin 3 (three) times a day before meals.Active atorvastatin (LIPITOR) 80 mg tablet Take 80 mg by mouth daily.Active lisinopriL (PRINIVIL,ZESTRIL) 20 mg tablet Take 20 mg by mouth daily.Active metoprolol tartrate (LOPRESSOR) 100 mg tablet Take 100 mg by mouth 2 (two) times a day.Active spironolactone (ALDACTONE) 25 mg tablet Take 25 mg by mouth daily.Active gabapentin (NEURONTIN) 300 mg capsule Take 300 mg by mouth 3 (three) times a day.Active citalopram (CeleXA) 40 mg tablet Take 40 mg by mouth daily.Active insulin glargine (LANTUS) 100 unit/mL injection Inject 86 Units under the skin nightly.Active Active Problems No known active problems Social History Tobacco UseTypesPacks/DayYears UsedDateSmoking Tobacco: FormerSmokeless Tobacco: Never Comments:QUIT WHEN SHE WAS [age] Alcohol UseStandard Drinks/WeekCommentsNever0 (1 standard drink = 0.6 oz pure alcohol)ChildcareAnswerDate VajmccdeGacuysnsyFsbyelj10/12/2019EmploymentAnswer Date GnoqxfurGjskbbrsxcOywqwcw41/12/2019CommentsUnknownSex and Gender InformationValueDate RecordedSex Assigned at BirthNot on fileLegal SexFemale 06/15/2015 11:55 AM EDTGender IdentityNot on fileSexual OrientationNot on file Last Filed Vital Signs Vital SignReadingTime TakenCommentsBlood Gxbwsegk938/8909 9:10 AM EDT Ybaox757707/12/2021 8:50 AM SPQMdifcrfkypk99.2 ??C (97.1 ??F)07/12/2021 7:21 AM EDTRespiratory Ekcm111207/12/2021 8:50 AM EDTOxygen Zufbssqpkm55%07/12/2021 9:10 AM EDTInhaled Oxygen Concentration--Drkvfg55.6 kg (171 lb)07/12/2021 7:21 AM EDT Tucpcy914.5 cm (5' 2 )07/12/2021 7:21 AM EDTBody Mass Index31.2809 7:21 AM EDT Plan of Treatment Health MaintenanceDue DateLast DoneCommentsDepression Jamezchru84/19/1966Tobacco Nbotrowlo02/19/1966Adult BMI Zpumwdeew76/19/1972DTaP,Tdap and Td Vaccines (1 - Tdap)1973Zoster (Shingles) Vaccine (1 of 2)2004Fall Risk Screening 2019Influenza Ugmqcwh80/01/201680/, 08/10/2019, 08/25/2018, Additional history existsRSV ( or age 60+ yrs) (1 - 1-dose 75+ series) 2029 [employer] Not on file Insurance Care Teams Team MemberRelationshipSpecialtyStart DateEnd Date Nik Bell MD [address] [facility] [address] [place] [address] PCP - GeneralInternal Medicine07/12/21
--- OUTSIDE RECORDS SUMMARY | 2025-11-07 00:40 | XMS_ITS | Clinical Summary ---
Author Organization [facility] Address [address] [place] [address] Phone Care Team Providers Care Freight Associate Name Role Phone Unavailable Primary Care Provider Unavailabl e Allergies Active AllergyReactionsCriticalityNoted DateCommentsPenicillinsHives,Other, Wvwzrtm6210/28/2014 childhood-swelling Medications MedicationSigDispense QuantityRefillsLast FilledStart DateEnd DateStatus albuterol 2.5 mg /3 mL (0.083 %) nebulizer solution Take 3 mL (2.5 mg) by nebulization 4 times a day as needed for wheezing or shortness of breath.Active amLODIPine (Norvasc) 10 mg tablet Take 1 tablet (10 mg) by mouth once daily.Active Eliquis 5 mg tablet Take 1 tablet (5 mg) by mouth every 12 hours.01/13/2023ctive atorvastatin (Lipitor) 80 mg tablet Take 1 tablet (80 mg) by mouth once daily.01/13/2023ctive carvedilol (Coreg) 25 mg tablet Take 0.5 tablets (12.5 mg) by mouth every 12 hours.01/13/2023ctive citalopram (CeleXA) 20 mg tablet Take 1 tablet (20 mg) by mouth 2 times a day.01/13/2023ctive clopidogrel (Plavix) 75 mg tablet Take 1 tablet (75 mg) by mouth once daily.01/08/2024ctive furosemide (Lasix) 40 mg tablet Take 1 tablet (40 mg) by mouth once daily in the morning. Take before meals. 01/13/2023ctive gabapentin (Neurontin) 300 mg capsule Take 2 capsules (600 mg) by mouth 2 times a day.01/13/2023ctive hydrALAZINE (Apresoline) 50 mg tablet Take 1 tablet (50 mg) by mouth twice a day.05/10/2024ctive Basaglar WaqarikPen U-100 Insulin 100 unit/mL (3 mL) pen Inject 50 Units under the skin once daily at bedtime.11/17/2023ctive NovoLIN R Regular U100 Insulin 100 unit/mL injection INJECT DIRECTED UNDER THE SKIN PER SLIDING SCALE WITH MAX OF 22 UNITS DAILY 01/29/2024ctive lisinopril 20 mg tablet Take 1 tablet (20 mg) by mouth once daily.01/13/2023ctive ondansetron ODT (Zofran-ODT) 4 mg disintegrating tablet Take 1 tablet (4 mg) by mouth every 8 hours if needed for nausea or vomiting. 02/12/2024ctive BD Ultra-Fine Short Pen Needle 31 gauge x 5/16 needle USE DIRECTED EVERY DAY WITH ZEVJLGKT35/18/2024ctive potassium chloride CR 20 mEq ER tablet Take 1 tablet (20 mEq) by mouth once daily.01/13/2023ctive furosemide (Lasix) 20 mg tablet Take 1 tablet (20 mg) by mouth once daily. (Take with 40mg tablet for total dose of 60mg)03/19/2024ctive acetaminophen (Tylenol 8 HOUR) 650 mg ER tablet Take 2 tablets (1,300 mg) by mouth every 8 hours if needed for mild pain (1 - 3). Do not crush, chew, or split.Active Active Problems ProblemNoted DateDiagnosed DatePAD (peripheral artery disease)06/15/2024 Social History Tobacco UseTypesPacks/DayYears UsedDateSmoking Tobacco: NeverSmokeless Tobacco: Never Tobacco Cessation:Counseling Given: Not Answered Alcohol UseStandard Drinks/WeekCommentsNever0 (1 standard drink = 0.6 oz pure alcohol)AUDIT-CAnswerDate RecordedQ1: How often do you have a drink containing alcohol?Never06/21/2024Q2: How many drinks containing alcohol do you have on a typical day when you are drinking?Patient does not drink06/21/2024Q3: How often do you have six or more drinks on one occasion?Never06/21/2024Overall Financial Resource Strain (CARDIA)AnswerDate RecordedHow hard is it for you to pay for the very basics like food, housing, medical care, and heating?Not hard at all 06/22/2024HQ-2AnswerDate RecordedPatient Health Questionnaire-2 Score0 06/21/2024Exercise Vital SignAnswerDate RecordedOn average, how many days per week do you engage in moderate to strenuous exercise (like a brisk walk)?0 days 06/22/2024On average, how many minutes do you engage in exercise at this level?0 min06/22/2024RAPARE - TransportationAnswerDate RecordedIn the past 12 months, has lack of transportation kept you from medical appointments or from getting medications?No06/22/2024In the past 12 months, has lack of transportation kept you from meetings, work, or from getting things needed for daily living?No 06/22/2024Housing Stability Vital SignAnswerDate RecordedIn the last 12 months, was there a time when you were not able to pay the mortgage or rent on time?No 06/22/2024In the past 12 months, how many times have you moved where you were living?t any time in the past 12 months, were you homeless or living in a usp (including now)?No06/22/2024CommentsNoSex and Gender InformationValueDate RecordedSex Assigned at BirthNot on fileLegal SexFemale 05/19/2024 1:22 PM EDTGender IdentityNot on fileSexual OrientationNot on file Last Filed Vital Signs Vital SignReadingTime TakenCommentsBlood Rkxgmdvl101/8009 4:14 PM EDT Mguwh3760 4:10 PM KPKXueshkczvwq00.6 ??C (97.9 ??F)06/22/2024 7:49 AM EDTRespiratory Fzic024107/20/2024 4:10 PM EDTOxygen Sevuycdmak12%06/22/2024 7:49 AM EDTInhaled Oxygen Concentration--Wlnoqg66.5 kg (162 lb)07/20/2024 4:10 PM EDT Rljion288.5 cm (5' 2 )07/20/2024 4:10 PM EDTBody Mass Index29.63007/20/2024 4:10 PM EDT Plan of Treatment Health MaintenanceDue DateLast DoneCommentsCT Nstamqycsyxk1955FIT-DNA (Cologuard)1955Lipid Panel1955Medicare Annual Wellness Visit (AWV) 1955 7090Nrdrgieupvtha1954MMR Vaccines (1 of 1 - Standard series) 1955Hepatitis C Clxqdxhjl89/19/1972RSV High Risk: (Elderly (60+) or Population) (1 - Risk 50-74 years 1-dose series)2004Zoster Vaccines (1 of 2)06/28/20048399Jivwocxof01, 08/23/2020Pneumococcal Vaccine (2 of 2 - PCV)/, 09/25/20162110Eajxflqkwfkeup92/18/2022 03/27/2021one Density ScanFIT/2Creatinine Level/4Diabetes Hyxsoqvwp89/04/2024, 12/05/2023, 12/04/2023, Additional history existsPotassium Level06/15//4COVID-19 Vaccine ( - season)2025Influenza Vaccine (#1)2025 08/28/2022, 09/05/2021, 10/06/2020, Additional history existsColonoscopy /12/2020, 07/12/2021, 1Colorectal Cancer Screening 1DTaP/Tdap/Td Vaccines (2 - Td or Tdap)HIB Vaccines Aged OutNo longer eligible based on patient's age to complete this topicHPV VaccinesAged OutNo longer eligible based on patient's age to complete this topic Hepatitis A VaccinesAged OutNo longer eligible based on patient's age to complete this topicHepatitis B VaccinesAged OutNo longer eligible based on patient's age to complete this topicIPV VaccinesAged OutNo longer eligible based on patient's age to complete this topicMeningococcal VaccineAged OutNo longer eligible based on patient's age to complete this topicRotavirus VaccinesAged Out No longer eligible based on patient's age to complete this topic Procedures Procedure NamePriorityDate/TimeAssociated DiagnosisCommentsRENAL FUNCTION PANEL Zinnnqw4906/15/2024 5:08 PM EDT PAD (peripheral artery disease) from Last 3 Months or Most Recently Relevant to Health Maintenance Results * (ABNORMAL) Renal function panel (06/15/2024 5:08 PM EDT)ComponentValueRef RangeTest MethodAnalysis TimePerformed AtPathologist OuvzlexzkHaqxqit277(H)74 - 99 mg/dL LAB CHEMISTRY METHOD 06/15/2024 7:33 [facility] JBENmvlep537459 - 145 mmol/L LAB CHEMISTRY METHOD 06/15/2024 7:[facility] LABPotassium5.5(H)3.5 - 5.3 mmol/L LAB CHEMISTRY METHOD 06/15/2024 7:33 PM [facility] XHYTtjxhgep03983 - 107 mmol/L LAB CHEMISTRY METHOD 06/15/2024 7:33 PM [facility] PXQFuqrbnvrpuw8583 - 32 mmol/L LAB CHEMISTRY METHOD 06/15/2024 7:33 PM [facility] LABAnion Tfe2581 - 20 mmol/L LAB CHEMISTRY METHOD 06/15/2024 7:33 PM [facility] LABUrea Hnsuyxkr21(H)6 - 23 mg/dL LAB CHEMISTRY METHOD 06/15/2024 7:33 PM [facility] LABCreatinine1.36(H)0.50 - 1.05 mg/dL LAB CHEMISTRY METHOD 06/15/2024 7:33 PM [facility] PDVcUDG20(L)>60 mL/min/1.73m*2 LAB CHEMISTRY METHOD 06/15/2024 7:33 PM [facility]TNOV[facility] LABComment: Calculations of estimated GFR are performed using the 2020 CKD-EPI Study Refit equation without therace variable for the IDMS-Traceable creatinine methods. https://jasn.asnjournals.org/content/early//ASN.1390448671 Calcium9.88.6 - 10.6 mg/dL LAB CHEMISTRY METHOD 06/15/2024 7:33 PM [facility] LABPhosphorus4.12.5 - 4.9 mg/dL LAB CHEMISTRY METHOD 06/15/2024 7:[address] [facility] LABComment:The performance characteristics of phosphorus testing in heparinized plasma have been validated by the individual laboratory site where testing is performed. Testing on heparinized plasma is not approved by the FDA; however, such approval is not necessary.Albumin4.73.4 - 5.0 g/dL LAB CHEMISTRY METHOD 06/15/2024 7:[address] [facility] LABSpecimen (Source)Anatomical Location / Laterality Collection Method / VolumeCollection TimeReceived TimeBloodVenous blood specimen / UnknownVenipuncture / Zikircc0706/15/2024 5:08 PM EDT06/15/2024 5:08 PM EDT Narrative Authorizing ProviderResult TypeResult StatusMerit Health [facility] BLOOD ORDERABLESFinal ResultPerforming OrganizationAddressCity/State/ZIP CodePhone Number [facility] [address] [place] [address] from Last 3 Months or Most Recently Relevant to Health Maintenance Insurance [address] [place] [address] MemberSubscriberPlan / Payer (Effective 2022-Present)Name:Diann Patel Relation to Subscriber:SelfName:Diann Patel Payer ID:[id number] (NAIC) Group ID:[id number] Type:Not on file Address: [address] MemberSubscriberPlan / Payer (Effective 2022-Present)Name:Diann Patel Relation to Subscriber:SelfName:Diann Patel Payer ID:[id number] (NAIC) Group ID:[id number] Type:Not on file Address: [address] [place] [id number]
--- OUTSIDE RECORDS SUMMARY | 2025-11-07 00:40 | XMS_ITS | Clinical Summary ---
Author Organization [facility] Address [address] [place] [address] Care Team Providers Care Video Photographer Name Role Phone Nik Bell MD Primary Care Provider [phone] Alexis Carranza DPM Unavailable [phone] Allergies Active AllergyReactionsCriticalityNoted VhwcRvebppxoVlkgoddcjaUusbs65/09/2022 PenicillinsHives,Fdmipxi9510/28/2014 childhood-swelling Medications MedicationSigDispense QuantityRefillsLast FilledStart DateEnd DateStatus potassium chloride CR (Klor-Con M10) 10 mEq ER tablet Take 20 mEq by mouth in the morning. Do not crush or chew.Active citalopram (CeleXA) 20 mg tablet Take 20 mg by mouth in the morning.Active gabapentin (Neurontin) 300 mg capsule Take 300 mg by mouth twice a day.01/13/2023ctive ferrous sulfate 325 (65 Fe) MG EC tablet Take 65 mg of iron by mouth in the morning. Do not crush, chew, or split.Active loratadine (Claritin) 10 mg tablet Take 10 mg by mouth in the morning.Active insulin glargine (Lantus) 100 unit/mL injection vial Indications:Acute on chronic heart failure with preserved ejection fraction (HFpEF) (CMS/[facility])Inject 30 Units under the skin at bedtime for 95 doses. 5Active insulin regular (NovoLIN R Regular U100 Insulin) 100 unit/mL injection vial Inject 22 Units under the skin with breakfast and with evening meal.09/22/2024 Active pantoprazole (ProtoNix) 40 mg EC tablet Indications:PAF (paroxysmal atrial fibrillation) (CMS/HCC)Take 1 tablet (40 mg) by mouth before breakfast. Do not crush, chew, or split. 90 tablet /6Active Additional Information Patient taking differently:40 mg oral2 times daily, Do not crush, chew, or split., Reported on 10/14/2025 hydrALAZINE (Apresoline) 100 mg tablet Indications:Essential hypertensionTake 1 tablet (100 mg) by mouth two times daily. 180 tablet 504/6Active furosemide (Lasix) 40 mg tablet Indications:Acute on chronic heart failure with preserved ejection fraction (HFpEF) (CMS/HCC)Take 1 tablet (40 mg) by mouth two times daily. 180 tablet //6Active dabigatran etexilate 150 mg pellets in packet Take 150 mg by mouth twice a day.Active methocarbamol (Robaxin) 500 mg tablet Take 500 mg by mouth every 8 (eight) hours if needed.05/03/2025tive dabigatran etexilate (Pradaxa) 150 mg capsule Indications:Coronary artery disease due to lipid rich plaqueTake 1 capsule (150 mg) by mouth two times daily. Do not crush or chew. 180 capsule //6Active lisinopril 20 mg tablet Indications:Essential hypertensionTAKE 1 TABLET(20 MG) BY MOUTH DAILY DIRECTED 90 tablet 5Active amLODIPine (Norvasc) 10 mg tablet Indications:Essential hypertensionTAKE 1 TABLET(10 MG) BY MOUTH IN THE MORNING 90 tablet 5Active atorvastatin (Lipitor) 80 mg tablet Indications:PAF (paroxysmal atrial fibrillation) (CMS/HCC),Coronary artery disease involving [place] coronary artery of [place] heart without angina pectoris ,Mixed hyperlipidemiaTake 1 tablet (80 mg) by mouth at bedtime. 90 tablet 5Active carvedilol (Coreg) 25 mg tablet Indications:Essential hypertension,PAF (paroxysmal atrial fibrillation) (CMS/HCC)Take 1 tablet (25 mg) by mouth with breakfast and with evening meal. 180 tablet /6Active atorvastatin (Lipitor) 80 mg tablet Take 80 mg by mouth in the morning.10/14/2025Discontinued(Reorder) apixaban 5 mg (74 tabs) tablets,dose pack Take 5 mg by mouth two times daily.10/14/2025Discontinued(Cost of medication) carvedilol (Coreg) 12.5 mg tablet Indications:Acute on chronic heart failure with preserved ejection fraction (HFpEF) (CMS/HCC)Take 1 tablet (12.5 mg) by mouth with breakfast and with evening meal. 180 tablet Discontinued(Dose adjustment) carvedilol (Coreg) 6.25 mg tablet Indications:Essential hypertensionTake 1 tablet (6.25 mg) by mouth with breakfast and with evening meal. 180 tablet Discontinued(Dose adjustment) Active Problems ProblemNoted DateDiagnosed WuwxOtzy11/05/2025hronic fqnxatepzxyhotn25/16/2025 History of colon ytuaoq4505/25/2025Iron deficiency vmbwag5505/25/2025Screening for colon qtibtz4005/25/2025Upper abdominal pain05/25/2025ardiovascular disease 04/26/2025HTN (hypertension)04/26/2025ortic stenosis, trrwmb0904/26/2025arotid zigjbciv74/19/2025 Overview (04/26/2025): Problem List clean-up per request of Phys. EHR Cmte PCO (posterior capsular opacification), xbeiqofhf93/19/8609Mtulodqu03/19/2025New onset of congestive heart yywopco2702/18/2025 Assessment & Plan (02/21/2025 10:57 AM EDT): -Patient had angiogram on which showed patent 3 bypass grafts, moderate RCA disease, moderate elevation of filling pressures, moderate pulmonary hypertension, preserved cardiac output and postcapillary pulmonary hypertension. -Cardiology is following, continue aspirin, statin, guideline directed medical therapy. Given low hemoglobin, anticoagulation was discontinued. Continue aspirin. Patient received blood transfusion on because her hemoglobin was 7, she runs around 9-10 -Continue IV diuresis, strict intake output monitoring, titrate oxygen off as needed. At home she does not use oxygen. -Patient has good urine output, would continue current diuretic dose - Will do overnight desaturation study - Follow-up on the echo Assessment & Plan (02/20/2025 12:04 PM EDT): -Patient had angiogram on which showed patent 3 bypass grafts, moderate RCA disease, moderate elevation of filling pressures, moderate pulmonary hypertension, preserved cardiac output and postcapillary pulmonary hypertension. -Cardiology is following, continue aspirin, statin, guideline directed medical therapy. Given low hemoglobin, anticoagulation was discontinued. Continue aspirin. Patient received blood transfusion on because her hemoglobin was 7, she runs around 9-10 -Continue IV diuresis, strict intake output monitoring, titrate oxygen off as needed. At home she does not use oxygen -Patient has good urine output, would continue current diuretic dose Assessment & Plan (02/19/2025 11:57 AM EDT): -Patient had angiogram yesterday which showed patent 3 bypass grafts, moderate RCA disease, moderate elevation of filling pressures, moderate pulmonary hypertension, preserved cardiac output and postcapillary pulmonary hypertension. -Cardiology is following, continue aspirin, statin, guideline directed medical therapy. Given low hemoglobin, anticoagulation was discontinued. Continue aspirin. Patient received blood transfusion yesterday because her hemoglobin was 7, she runs around 9-10 -Continue IV diuresis, strict intake output monitoring, titrate oxygen off as needed. At home she does not use oxygen Assessment & Plan (02/18/2025 4:33 PM EDT): - acutely decompensated w elevated trop. Hx of diastolic HF. Concern that this decompensation is 2/2 KS. - Sodium restricted diet - Lasix 40mg IV BID x2 doses, reassess in AM. NSTEMI (non-ST elevated myocardial infarction)02/18/2025 Assessment & Plan (02/21/2025 10:57 AM EDT): As above Assessment & Plan (02/20/2025 12:04 PM EDT): As above Assessment & Plan (02/19/2025 11:57 AM EDT): As above Assessment & Plan (02/18/2025 4:33 PM EDT): - Heparin gtt - Trend trops/EKGs - Cardiology following' - NPO at midnight for cath in AM - SL nitroglycerin prn Coronary artery disease involving [place] heart02/18/2025 Assessment & Plan (02/21/2025 10:57 AM EDT): As above Assessment & Plan (02/20/2025 12:04 PM EDT): As above Assessment & Plan (02/19/2025 11:57 AM EDT): As above Assessment & Plan (02/18/2025 4:33 PM EDT): - Has been compliant on plavix/statin Acute wkbmef5402/18/2025 Assessment & Plan (02/21/2025 10:57 AM EDT): -Anticoagulation has been on hold, continue aspirin, repeat hemoglobin daily. No apparent source ofbleeding. Patient states that she had her screening colonoscopies Assessment & Plan (02/20/2025 12:04 PM EDT): -Anticoagulation has been on hold, continue aspirin, repeat hemoglobin daily. No apparent source ofbleeding. Patient states that she had her screening colonoscopies Assessment & Plan (02/19/2025 11:57 AM EDT): -Anticoagulation has been on hold, continue aspirin, repeat hemoglobin daily. No apparent source ofbleeding. Patient states that she had her screening colonoscopies Assessment & Plan (02/18/2025 5:04 PM EDT): - follow up anemia workup, possibly iatrogenic from recurrent blood draws over past 12 hours, but she is on eliquis/plavix at home. Follow up stool guaiac, b12, ferritin, folate, and tibc. - Will transfuse 1U in setting of ACS to maintain hgb >8. Lasix 40mg after unit. Dry eyes02/15/2025Epiretinal membrane (ERM) of both eyes02/15/2025Pseudophakia 08/24/2024iabetes /01/2024 Overview (05/10/2024): type 2 Pdudnqsiaxrozvswzjko73/01/2024S/P CABG x Assessment & Plan (02/21/2025 10:57 AM EDT): - In 2012 Assessment & Plan (02/20/2025 12:04 PM EDT): - In 2012 Assessment & Plan (02/19/2025 11:57 AM EDT): - In 2012 Assessment & Plan (02/18/2025 4:33 PM EDT): - In 2012 Cataract mature, total xenswy3205/05/2024Vitreous hemorrhage of right eye 05/05/2024Numbness of left lower wmpjvstku74/24/2024Acute asthmatic bronchitis 06/24/20236061Wvuwjicooznoyarei75/15/2023hronic ulcer of left foot with fat layer cmtcjwb6606/24/2023iabetic foot ulcer06/24/2023ry /15/2023eneralized anxiety jwxweguw71/26/2023History of ecqlmraqwhgq38/26/2023IBS (irritable bowel syndrome)06/04/20236551Xosdnukxmn02/26/2023olyneuropathy due to type 2 diabetes minxgfan26/26/2023oorly controlled diabetes jfvcmovz24/26/2023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 associated with type 2 diabetes kihhhfla01/26/2023Type 2 diabetes mellitus with tcvocaflsagrf42/26/2023 Assessment & Plan (02/21/2025 10:57 AM EDT): -Resume home insulin, adjust based on blood sugars Assessment & Plan (02/20/2025 12:04 PM EDT): -Resume home insulin, adjust based on blood sugars Assessment & Plan (02/19/2025 11:57 AM EDT): -Resume home insulin, adjust based on blood sugars Assessment & Plan (02/18/2025 4:33 PM EDT): - On regular insulin 10U w meals at home. Start sliding scale here. - On 80U nightly of lantus. Reduce to 20U tonight. Will be NPO Atherosclerosis of [place] coronary artery of [place] heart with angina pectoris with documented spasm06/04/2023enign essential cdzrlmyimvku53/26/2023eripheral vascular jvwzztj1906/04/2023Mixed igtdcczuvcgzxg50/26/2023aroxysmal atrial cuvyqwnqwbzb28/26/2023Nonrheumatic aortic valve hyiwlhgy97/13/2022oronary artery disease involving [place] coronary artery of [place] heart with angina nhorlyqy04/13/2022AF (paroxysmal atrial fibrillation)07/23/2022 Assessment & Plan (02/21/2025 10:57 AM EDT): - On Eliquis 5mg BID at home, rate controlled on carvedilol 25mg BID. Rate controlled here. Anticoagulation has been on hold given low hemoglobin. Patient will need to be evaluated for left atrial appendage occlusion procedure outpatient Assessment & Plan (02/20/2025 12:04 PM EDT): - On Eliquis 5mg BID at home, rate controlled on carvedilol 25mg BID. Rate controlled here. Anticoagulation has been on hold given low hemoglobin. Patient will need to be evaluated for left atrial appendage occlusion procedure outpatient Assessment & Plan (02/19/2025 11:57 AM EDT): - On Eliquis 5mg BID at home, rate controlled on carvedilol 25mg BID. Rate controlled here. Anticoagulation has been on hold given low hemoglobin. Patient will need to be evaluated for left atrial appendage occlusion procedure outpatient Assessment & Plan (02/18/2025 4:33 PM EDT): - On Eliquis 5mg BID at home, rate controlled on carvedilol 25mg BID. Rate controlled here Essential njlewnjpfmmr22/13/2022 Assessment & Plan (02/21/2025 10:57 AM EDT): - Resume home medications Assessment & Plan (02/20/2025 12:04 PM EDT): - Resume home medications Assessment & Plan (02/19/2025 11:57 AM EDT): - Resume home medications Assessment & Plan (02/18/2025 4:33 PM EDT): - Resume home medications PAD (peripheral artery disease)2Proliferative diabetic retinopathy associated with type 2 diabetes vvswrnik31/17/2021Asthma without status ootnqfynmnd13/05/2018Estrogen /15/2017Atrophic lkyklpxaa41/14/2015 Fgqdctfdmj93/14/2013Dehiscence of operative wound04/15/2013 Overview (05/10/2024): WOUND CLOSURED 06/22/13 WOUND CLOSURED 06/22/13 Staphylococcal infectious degskos3603/17/2013Infection of bone03/02/2013Mechanical complication of internal orthopedic device, implant or graft02/23/2013 Overview (12/20/2024): DELAY WOUND HEALING Sqhabbgnwopmh40/11/2013 Overview (04/26/2025): STERNUM S/P DEBRIDEMENT AND FLAP COVERAGE 02/08/13 Arteriosclerosis of arterial coronary artery bypass graft01/05/2013 Overview (05/10/2024): CABG x4 in 2012, 2021 cath 3/4 are patent Chest pain12/29/2012Diverticulosis of colon03/29/20107004Ekvmpkmp99/20/2010Pain in soft tissues of limb03/29/2010 Encounters DateTypeDepartmentCare WliuQmdwjririfc60/05/2025 2:15 PM ESTOffice Visit [facility] [address] [phone] Valente Chacon MD S/P TAVR (transcatheter aortic valve replacement) (Primary Dx); Bilateral carotid artery stenosis; Essential hypertension; PAF (paroxysmal atrial fibrillation) (CMS/HCC); PAD (peripheral artery disease); Coronary artery disease involving [place] coronary artery of [place] heart without angina pectoris; Mixed hyperlipidemia; History of coronary artery bypass csnkuoz5809/26/2025Telephone [facility] [address] [place] [address] Sharmila Lee LPN from Last 3 Months Immunizations ImmunizationAdministration DatesNext DueInfluenza, High Dose Seasonal, Preservative Free10/05/2020,08/10/2019Influenza, High-dose Seasonal, Quadrivalent, Preservative Free09/30/2024,08/28/2022Influenza, Seasonal, Quadrivalent, Htnbdbheji43/27/2021Influenza, injectable, quadrivalent, preservative free10/06/2020,09/25/2016,10/27/2014Influenza, seasonal,quadrivalent, preservative free08/25/2018,09/24/2017,10/02/2015 Pneumococcal Polysaccharide BEG262512/06/2019,09/25/2016Tdap04/01/2024 Family History Medical HistoryRelationNameCommentsAlcohol abuseBrotherDiabetesBrotherHeart diseaseFatherCancerMotherDiabetesMotherRelationNameStatusCommentsBrotherDeceased FatherDeceasedMotherDeceasedSisterDeceased Social History Tobacco UseTypesPacks/DayYears UsedDateSmoking Tobacco: FormerCigarettes Smokeless Tobacco: Never Tobacco Cessation:Counseling Given: Not Answered Alcohol UseStandard Drinks/WeekCommentsNever0 (1 standard drink = 0.6 oz pure alcohol)[facility] UtilitiesAnswerDate RecordedIn the past 12 months has the [facility], gas, oil, or water [employer] threatened to shut off services in your home?No 02/18/2025Humiliation, Afraid, Rape, and Kick questionnaireAnswerDate Recorded Within the last year, have you been afraid of your partner or ex-partner?No 04/26/2025Within the last year, have you been humiliated or emotionally abused in other ways by your partner or ex-partner?No04/26/2025Within the last year, have you been kicked, hit, slapped, or otherwise physically hurt by your partner or ex-partner?No04/26/2025Within the last year, have you been raped or forced to have any kind of sexual activity by your partner or ex-partner?No04/26/2025 Social Connection and Isolation PanelAnswerDate RecordedIn a typical week, how many times do you talk on the phone with family, friends, or neighbors?More than three times a week12/03/2023How often do you get together with friends or relatives?More than three times a week12/03/2023How often do you attend latter day or gnosticist services?Never12/03/2023o you belong to any clubs or organizations such as latter day groups, unions, fraternal or athletic groups, or school groups?No 12/03/2023How often do you attend meetings of the clubs or organizations you belong to?Never12/03/2023re you , , , , never , or living with a partner?Yxhlknf6312/03/2023UDIT-CAnswerDate RecordedQ1: How often do you have a drink containing alcohol?Never12/03/2023Q2: How many drinks containing alcohol do you have on a typical day when you are drinking? Patient does not drink12/03/2023Q3: How often do you have six or more drinks on one occasion?Never12/03/2023Overall Financial Resource Strain (CARDIA)AnswerDate RecordedHow hard is it for you to pay for the very basics like food, housing, medical care, and heating?Not hard at all02/18/2025PHQ-2AnswerDate Recorded Patient Health Questionnaire-2 Pwyyk609Finintermountain healthcare [place] of Occupational Health - Occupational Stress QuestionnaireAnswerDate RecordedDo you feel stress - tense, restless, nervous, or anxious, or unable to sleep at night because your mind is troubled all the time - these days?To some joqsng0412/03/2023UT Safety & EnvironmentAnswerDate RecordedWithin the last year, have you been afraid of your partner or ex-partner?No12/03/2023Within the last year, have you been humiliated or emotionally abused in other ways by your partner or ex-partner?No12/03/2023 Within the last year, have you been kicked, hit, slapped, or otherwise physically hurt by your partner or ex-partner?No12/03/2023Within the last year, have you been raped or forced to have any kind of sexual activity by your part ner or ex-partner?No12/03/2023In the past year have you been physically or sexually abused?Unrecognized value12/03/2023TransportationAnswerDate RecordedIn the past 12 months, has lack of transportation kept you from medical appointments or from getting medications?No02/18/2025Lack of Transportation (Non-Medical)Not on file02/18/2025Housing Stability Vital SignAnswerDate RecordedIn the last 12 months, was there a time when you were not able to pay the mortgage or rent on time?No02/18/2025Number of Times Moved in the Last Year Not on file02/18/2025t any time in the past 12 months, were you homeless or living in a skilled nursing (including now)?No02/18/2025Hunger Vital SignAnswerDate RecordedWithin the past 12 months, you worried that your food would run out before you got the money to buymore.Never true02/18/2025Ran Out of Food in the Last YearNot on file02/18/2025CommentsNoSex and Gender InformationValue Date RecordedSex Assigned at GpfqyCesdry49/11/2025 4:27 PM EDTLegal SexFemale 05/08/2022 10:16 PM EDTGender HupfvdfvYyjqdt55/08/2022 8:33 AM ESTSexual OrientationHeterosexual or Sbamkmrg20/08/2022 8:33 AM EST Last Filed Vital Signs Vital SignReadingTime TakenCommentsBlood Novdmkre722/7810/14/2025 3:30 PM EST Ttgyr439810/14/2025 3:30 PM YMZZibotcpfcqv95 ??C (96.8 ??F)02/22/2025 12:29 PM EDT Respiratory Fdte624302/22/2025 12:29 PM EDTOxygen Mrjcoxcvwc71%10/14/2025 2:42 PM ESTInhaled Oxygen Concentration--Ejwzjz94.2 kg (179 lb)10/14/2025 2:42 PM EST Ubwztl953.5 cm (5' 2 )10/14/2025 2:42 PM ESTBody Mass Index32.7410/14/2025 2:42 PM EST Plan of Treatment Health MaintenanceDue DateLast DoneCommentsMedicare Annual Wellness (AWV) 4Diabetes: Retinopathy Xeejpwflv71/19/1964Zoster Vaccines (1 of 2) 2004Pneumococcal Vaccine: 50+ Years (2 of 2 - PCV)/, 09/25/20163141Vnhkdxsdr55Diabetes: Hemoglobin A1C03/03/2024 12/03/2023, 06/29/2022OVID-19 Vaccine (1 - 2024- season)2025Influenza Vaccine (#1)/, 08/28/2022, 09/05/2021, Additional history existsDepression Rmdqpgtfv62Fall Risk Hccxghvsa98/17/2026 04/26/2025Diabetes: Urine Protein Kumgzoqqu97/08/2025, 02/12/2024dult Cfbvvzu42/5952CZBTSllezzwbdgcj25/13/2025olonoscopyDiscontinued 06/09/2025, 07/12/2021, 07/12/2021olorectal Cancer ScreeningDiscontinuedCT ColonographyDiscontinuedFIT-DNADiscontinuedFITDiscontinuedHIB VaccinesAged OutNo longer eligible based on patient's age to complete this topicHPV VaccinesAged OutNo longer eligible based on patient's age to complete this topicIPV Vaccines Aged OutNo longer eligible based on patient's age to complete this topic Meningococcal B VaccineAged OutNo longer eligible based on patient's age to complete this topicMeningococcal VaccineAged OutNo longer eligible based on patient's age to complete this topicRotavirus VaccinesAged OutNo longer eligible based on patient's age to complete this topicSigmoidoscopyDiscontinued Medical Devices ImplantedTypeAreaManufacturerDevice IdentifierShelf Expiration DateModel / Serial / LotEvolut Fx 26 Mm Valve Implanted:Qty: 1 on 09/17/2022 by [facility]ente [facility]acon [facility]Prost[facility] ValveN/A: HeartMEDTRONIC DSYTHNITLUGE06/08/2024 EVOLUTFX-26 / [id number] / Stent,Viabahn,[id number] - [id number] - [id number] Implanted:Qty: 1 on 12/04/2023 by [facility]h [facility]entLeft: Gita [id number] / [id number] / Procedures Procedure NamePriorityDate/TimeAssociated DiagnosisCommentsOCCULT BLOOD X 1, EFAIQXieaiel76/13/2025 12:11 PM EDT HEMOGLOBIN B5OSvg-Si71/24/2024 5:22 PM EST from Last 3 Months or Most Recently Relevant to Health Maintenance Results * Occult blood x 1, stool (02/20/2025 12:11 PM EDT)ComponentValueRef RangeTest MethodAnalysis TimePerformed AtPathologist SignatureFecal Occult BldNegative Negative, None Kxvghuhe80/13/2025 1:12 PM EDTINSCRIPTION [facility] ([facility] Specimen (Source)Anatomical Location / LateralityCollection Method / Volume Collection TimeReceived TimeStoolRectal contents / UnknownNon-blood Collection / Nlbdhnm8502/20/2025 12:11 PM EDT02/20/2025 12:17 PM EDT Narrative Authorizing ProviderResult TypeResult StatusAndrew Moses PA-CLAB BODY FLUIDS AND STOOLS ORDERABLESFinal ResultPerforming OrganizationAddressCity/State/ZIP Code Phone Number [facility] [address] [place] [address] * (ABNORMAL) Hemoglobin A1c (12/03/2023 5:22 PM EST)ComponentValueRef RangeTest MethodAnalysis TimePerformed AtPathologist SignatureHemoglobin A1C10.4(H)4.0 - 6.0 %12/04/2023 9:24 AM [facility] ([facility])Estimated Average Glucose 252mg/dL12/04/2023 9:24 AM [facility] ([facility])Specimen (Source) Anatomical Location / LateralityCollection Method / VolumeCollection Time Received TimeBloodVenous blood specimen / UnknownVenipuncture / Unknown 12/03/2023 5:22 PM EST12/03/2023 5:25 PM EST Narrative Authorizing ProviderResult TypeResult StatusAsif Ayanna BROWNE BLOOD ORDERABLES Final ResultPerforming OrganizationAddressCity/State/ZIP CodePhone Number [facility] [address] [place] [address] from Last 3 Months or Most Recently Relevant to Health Maintenance Insurance Advance Directives * Full Code (Latest Code Status on File) Date ActivatedDate InactivatedComments02/18/2025 1:51 PM02/22/2025 6:33 PM * Full Code Date ActivatedDate InactivatedComments12/03/2023 7:43 PM12/05/2023 7:35 PM * Full Code Date ActivatedDate JcdegeofuoxZjjcafzh96/8/2022 6:06 PM09/18/2022 4:40 PM Care Teams Team MemberRelationshipSpecialtyStart DateEnd Date Nik Blel MD [address] [facility] [address] [place] [address] PCP - General06/28/22 Alexis Carranza DPM [address] [facility] [address] [place] [address] Podiatr12/05/23
--- OUTSIDE RECORDS SUMMARY | 2025-11-07 00:41 | XMS_ITS | CCD ---
Author Organization [facility] Care Team Providers Care Assistant Professor Of Psychology Name Role Phone Geo Mathew Unavailable CHASE AMAYA Attending Unavailable UNKNOWN, PHYSICIAN Referring Unavailable CHAMP BELL Primary Care Unavailable ANDREW LOONEY Admitting Unavailable MONSE Bell Primary Care Provider MD Geo Mathew Attending Provider DR CHAMP BELL Primary Care Unavailable SHEPARD ., DR LARISSA Manriquez Admitting Unavailable SHEPARD ., DR LARISSA Manriquez Attending Unavailable SHEPARD ., DR LARISSA Manriquez Consulting Unavailable WEST, DR GORDON Cronin Consulting Unavailable ANNELIESE, DR GERMAIN Villaseñor Consulting Unavailable RODRIGO CARR Consulting Unavailable SHAIKH Meka CALVILLO Consulting Unavailable MISC, DR ROSADO Admitting Unavailable MISC, DR ROSADO Attending Unavailable FERMIN, DR OAKES Primary Care Unavailable ALEXIS GILMORE Admitting Unavailable ALEXIS GILMORE Attending Unavailable FERMIN, DR OAKES Primary Care Unavailable ALEXIS GILMORE Consulting Unavailable MOUKARBEL, DR FLANAGAN Admitting Unavailable MOUKARBEL, DR FLANAGAN Attending Unavailable FERMIN, DR OAKES Primary Care Unavailable MOUKARBTABATHA, DR FLANAGAN Consulting Unavailable FERMIN, DR OAKES Admitting Unavailable FERMIN, DR OAKES Attending Unavailable FERMIN, DR OAKES Primary Care Unavailable FERMIN, DR OAKES Primary Care Unavailable PAY ., DR DÍAZ Admitting Unavailable PAY ., DR DÍAZ Attending Unavailable ANNELIESE, DR GERMAIN Villaseñor Consulting Unavailable PAY ., DR DÍAZ Consulting Unavailable CHANTAL KILLIAN Consulting Unavailable FERMIN, DR OAKES Primary Care Unavailable RODRIGO CARR Consulting Unavailable RODRIGO CARR Admitting Unavailable RODRIGO CARR Attending Unavailable FERMIN, DR OAKES Primary Care Unavailable PAY ., DR DÍAZ Admitting Unavailable PAY ., DR DÍAZ Attending Unavailable ANNELIESE, DR GERMAIN Villaseñor Consulting Unavailable PAY ., DR DÍAZ Consulting Unavailable BRYAN ., BRETT Consulting Unavailable Sabrina Borden Unavailable MONSE Bell Primary Care Provider MD Geo Mathew Attending Provider Champ Bell MD Primary Care Provider MONSE Bell Primary Care Provider [phone] KIKA Gilmore Attending Provider MD Rodrigo Yousif Attending Provider [phone] Darrell BUTT, PhD, Trace Unavailable Unavalucero ESCAMILLA, MARGARETH H Attending Unavailable NOE CONKLIN Primary Care Unavailable FRANCINE, MARGARETH H Attending Unavailable ROHINIBHARATI KNAPPR Referring Unavailable NOE CONKLIN Primary Care Unavailable JEREMY, TAREK Admitting Unavailable JEREMY TAREK Attending Unavailable NOE CONKLIN Primary Care Unavailable NOE CONKLIN Primary Care Unavailable TABIRTA, TERRI I Referring Unavailable Champ Bell MD Unavailable Friday SCIENCE TECHNICIANS, Magalie Unavailable Unavailable Primary Care Provider UnavailNoe Gonzales DO Primary Care Provider [phone] Aakash HOPPER, [facility] Unavailable [phone] Darrell BUTT, PhD, Trace Unavailable Cruz Ramírez MD, PhD, Trace Unavailable Cruz Browne SCIENCE TECHNICIANS, Lesa Unavailable Unavailable Champ Bell II Primary Care Provider Ross Martinez APRN Emergency Provider [phone] Edvin Casper MD Admit Provider Edvin Casper MD Attending Provider Champ Bell II Attending Provider [phone] Charlene Mckinley MD Unavailable [phone] Browne SCIENCE TECHNICIANS, Lesa Unavailable MALENFANT, AKIRA E Attending Unavaila VALENTE Hebert Referring Unavailable ARGELIA SOLIZ Referring Unavailable TIFFANIE, HANI Referring Unavailable ARLIN, ABIOLA Referring Unavailable KATKORODRIGO Referring Unavailable TIFFANIE, HANI Admitting Unavailable TIFFANIE, SABAI Attending Unavailable ABIOLA OLIVEROS Referring Unavailable MOSAMMY, VALENTE Attending Unavailable MOUKARBEL, VALENTE Attending Unavailable MOUKARBEL, VALENTE Attending Unavailable TIFFANIE, HANI Referring Unavailable CARMELLA ALLEN Attending Unavailable Champ Bell II Primary Care Provider [phone] Dale Fox MD Attending Provider [phone] Alexis Gilmore DPM Attending Provider Vinod Carlos MD, Agustin Unavailable Unavailabl e Champ Bell Attending Unavailable Champ Bell Admitting Unavailable Champ Bell Primary Care Unavailable Alexis Gilmore Admitting Unavailable Alexis Gilmore Attending Unavailable Champ Bell Primary Care Unavailable DoamekporJpEdvin E Admitting Unavailab le Doamekpsofie, Edvin E Attending Unavailab le Champ Bell Primary Care Unavailable Alexis Gilmore Admitting Unavailable Alexis Gilmore Attending Unavailable Fermin Champ Primary Care Unavailable Dale Fox Admitting Unavailable Dale Fox Attending Unavailable Fermin Champ Primary Care Unavailable Vinod Carlos MD, Agustin Unavailable Unavailabl e Friday SCIENCE TECHNICIANS, Magalie Unavailable Lauren Finn RN Unavailable Trace Ramírez Attending Unavailable Al Shweiki, Agustin Attending Unavailable Al Shweiki, Agustin Referring Unavailable Trace Ramírez Attending Unavailable Trace Ramírez Referring Unavailable Al Shweiki, Agustin Attending Unavailable Al Shweiki, Agustin Attending Unavailable Al Shweiki, Agustin Referring Unavailable Al Shweiki, Agustin Attending Unavailable Al Shweiki, Agustin Referring Unavailable Trace Ramírez Attending Unavailable Trace Ramírez Referring Unavailable ALEXIS GILMORE Attending Unavailable ALEXIS GILMORE Attending Unavailable JOHNNA CEDEÑO Attending Unavailable TEENA DELCID Attending Unavailable JOHNNA CEDEÑO Attending Unavailable ALEXIS GILMORE Attending Unavailable JOHNNA CEDEÑO Attending Unavailable DALE WANG Attending Unavailable JOHNNA CEDEÑO Referring Unavailable ALEXIS GILMORE Attending Unavailable DALE WANG Attending Unavailable TEENA DELCID Attending Unavailable ALEXIS GILMORE Attending Unavailable JOHNNA CEDEÑO Attending Unavailable ALEXIS GILMORE Attending Unavailable JOHNNA CEDEÑO Attending Unavailable ALEXIS GILMORE Attending Unavailable JOHNNA CEDEÑO Attending Unavailable JOHNNA CEDEÑO Attending Unavailable ALEXIS GILMORE Attending Unavailable MANJULA FULTON Attending Unavailable TEENA DELCID Attending Unavailable Allergies Allergy ClassificationReported Allergen(s)Allergy TypeDate of OnsetReaction(s) Facility (1 source)Penicillin VDrug AllergyhivesNort Netotiate Other (7 sources)Penicillins; Translations: [PENICILLINS]Drug allergy (disorder) 76-58-5496GirguMrgC[facility] (8 sources)Penicillin; Translations: [PENICILLIN]Drug Irqlklu99-67-4221zfffb, UnknownCV Physicians (20 sources)PenicillinsDrug Aleqyfz24-99-4325Hahbb, UnknownB[facility] (4 sources)PenicillinsDrug Afhezyc25-47-3989Yowje, Other, UnknownMer[facility] ([facility] source)PenicillinsDrug allergy (disorder)71-48-2829PxyyiwhatMercy Health [facility] Hospital Repository Medications Current Medications MedicationDrug Class(es)DatesSig (Normalized)Sig (Original)8 hr acetaminophen 650 mg extended release oral tablet (3 sources)take 2 tablets by mouth every eight hours as neededacetaminophen (Tylenol 8 HOUR) 650 mg ER tablet Take 2 tablets (1,300 mg) by mouth every 8 hours ifneeded for mild pain (1 - 3). Do not crush, chew, or split. Active acetaminophen 325 mg / HYDROcodone bitartrate 5 mg oral tablet (16 sources)Opioid AgonistStart: 80-92-8163rqbf 1 tablet by mouth once daily as needed for painHydrocodone-Acetaminophen 5-325 mg tablet Active 1 TAB PO Daily as needed for pain July 19, 2025 12:00am Complies with drug therapyStart: 07-18-2025 End: 73-21-7530xawp 1 tablet by mouth every eight hours as needed for pain HYDROcodone-acetaminophen ([place]) 5-325 MG tablet Indications: Pain Take 1 tablet by mouth every 8 (eight) hours if needed for moderate pain (PRN pain) for up to 5 days 15 tablet 07/27/2025 08/01/2025 Activealbuterol 0.83 mg/ml inhalation solution (20 sources)beta2-Adrenergic AgonistStart: 17-84-3644Cqizypvba Sulfate 2.5 mg /3 mL (0.083 %) solution for nebulization Active 2.5 MG CNTNEBULIZ Four times daily as needed for shortness of breath or wheezing July 19, 2025 12:00am Complies with drug therapyStart: 06-21-2024 End: 51-02-6204qfsmymvmv (2.5 MG/3ML) 0.083% nebulizer solution 3 ml Inhalation 4 times a day and as needed for 6 03/01/2025 Discontinued (Ineffective)albuterol 2.5 mg /3 mL (0.083 %) nebulizer solution Take 3 mL (2.5 mg) by nebulization 4 times a day as needed for wheezing or shortness of breath. ActiveamLODIPine 10 mg oral tablet (20 sources)Dihydropyridine Calcium Channel BlockerStart: 18-18-1792qkVNUWMiea (Norvasc) 10 MG tablet 05/11/2024 ActiveStart: 01-13-2023 End: 12-30-1634vrcu 1 tablet by mouth once dailyAmlodipine 5 mg tablet Discontinued 5 MG PO Daily January 13, 2023 1:00am February 15, 2025 6:47pmapixaban 5 mg oral tablet (20 sources)Factor Xa InhibitorStart: 01-13-2023 End: 39-47-2570iwyv 1 tablet by mouth in the morningapixaban (Eliquis) 5 MG tablet Indications: Paroxysmal atrial fibrillation (CMS/HCC) Take 1 tablet (5 mg) by mouth in the morning and 1 tablet (5 mg) before bedtime. 200 tablet 1 08/23/2024 12/30/2024 Discontinued (Cost of medication)Start: 01-13-2023 End: 83-89-4495gugu 1 tablet by mouth every twelve hoursEliquis 5 mg tablet take 1 tablet by oral route 2 times every day 5 MG - Activeatorvastatin 80 mg oral tablet (20 sources)HMG-CoA Reductase InhibitorStart: 04-08-3251auay 1 tablet by mouth once dailyatorvastatin (Lipitor) 80 MG tablet Indications: Mixed hyperlipidemia TAKE 1 TABLET BY MOUTH EVERY DAY 100 tablet 3 11/15/2024 Activebenzonatate 200 mg oral capsule (7 sources)Non-narcotic AntitussiveStart: 09-22-2024 End: 26-76-5907dhwt 1 capsule by mouth three times daily as needed for cough benzonatate (Tessalon) 200 MG capsule Indications: Acute cough Take 1 capsule (200 mg) by mouth 3 (three) times a day as needed for cough for up to 10 days Do not crush or chew. 30 capsule Activecarvedilol 12.5 mg oral tablet (20 sources)alpha-Adrenergic Chasity, beta-Adrenergic BlockerStart: 02-22-2025 take 1 tablet by mouth twice daily at dinnercarvedilol (Coreg) 12.5 MG tablet TAKE 1 TABLET BY MOUTH TWICE DAILY WITH BREAKFAST AND WITH EVENING MEAL 02/22/2025 ActiveStart: 67-48-6805urkk 1 tablet by mouth every twelve hours carvedilol (Coreg) 25 MG tablet Take 25 mg by mouth every 12 (twelve) hours. 0 01/28/2023 ActiveStart: 35-99-1296mahy 0.5 tablet by mouth every twelve hours carvedilol (Coreg) 25 mg tablet Take 0.5 tablets (12.5 mg) by mouth every 12 hours. 01/13/2023 ActiveStart: 46-39-7893dbhi 1 tablet by mouth every twelve hourscarvedilol (Coreg) 25 mg tablet Take 1 tablet (25 mg) by mouth every 12 hours. 01/13/2023 ActiveStart: 01-13-2023 End: 53-11-7764evtt 1 tablet by mouth twice dailyCarvedilol 25 mg tablet Discontinued 25 MG PO Twice daily January 13, 2023 1:00am July 19, 2025 2:49pmStart: 50-45-9147grwc 12.5 mg by mouth twice dailyCarvedilol Active 12.5 MG PO Twice daily January 13, 2023 1:00am End: 70-16-7426axwv 1 capsule by mouth once dailyCoreg CR 20 mg capsule, extended release take 1 capsule by oral route every day 20 MG - Yok-68-3117Ip Longer Activecarvedilol (Coreg) 25 MG tablet Take 12.5 mg by mouth in the morning and 12.5 mg before bedtime. Activecitalopram 20 mg oral tablet (20 sources)Serotonin Reuptake InhibitorStart: 38-47-2135qxpa 1 tablet by mouth twice dailycitalopram (CeleXA) 20 mg tablet Take 1 tablet (20 mg) by mouth 2 times a day. 01/13/2023 ActiveStart: 87-01-2759bzxf 1 tablet by mouth once daily citalopram (CeleXA) 20 MG tablet Indications: Generalized anxiety disorder Take 1 tablet (20 mg) bymouth Daily 100 tablet 2 11/30/2024 ActiveStart: 05-05-2019 End: 36-55-9018pghl 1 tablet by mouth once dailycitalopram 40 mg tablet take 1 tablet by oral route every day 40 MG - No Longer Active take 0.5 tablet by mouth every twenty-four hoursCitalopram Hydrobromide 40 MG 0.5 tablet Orally Once a day Activecodeine phosphate 2 mg/ml / guaiFENesin 20 mg/ml oral solution (7 sources)Opioid AgonistStart: 09-22-2024 End: 85-67-8056nnjn 5 mL by mouth four times daily as needed for cough guaiFENesin-codeine (guaiFENesin AC) 100-10 MG/5ML syrup Indications: Acute cough Take 5 mL by mouth 4 (four) times a day as needed for cough for up to 10 days 120 mL 09/22/2024 10/02/2024 ActiveContinuous Glucose Telephone Diaphragm Assembler (Dexcom G7 Telephone Diaphragm Assembler) device (20 sources)Start: 55-54-0210Cbxwtlxtqx Glucose Telephone Diaphragm Assembler (Dexcom G7 Telephone Diaphragm Assembler) device Indications: Type 2 diabetes mellitus with hyperglycemia, with long-term current use of insulin (HCC) , 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 (HCC) , Polyneuropathy due to type 2 diabetes mellitus (HCC) , Poorly controlled diabetes mellitus (HCC) , 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 associated with type 2 diabetes mellitus (HCC) 1 Device yearly 1 each 03/05/2024 ActiveStart: 43-40-0821Aiimcpglmv Glucose Telephone Diaphragm Assembler (Dexcom G7 Telephone Diaphragm Assembler) device Indications: Type 2 diabetes mellitus with [...] (CMS/HCC) 1 Device yearly 1 each 03/05/2024 ActiveContinuous Glucose Sensor (Dexcom G7 Sensor) [facility] [place] ([place] sources)Start: 20-80-5111Afhuxfdzzo Glucose Sensor (Dexcom G7 Sensor) [facility] [facility] [place] Indications: Type 2 diabetes mellitus with hyperglycemia, with long-term current use of insulin ([facility]) 1 UNITS EVERY 10 (TEN) DAYS 9 each 3 02/03/2025tive Start: 76-46-2173Wriahjtunl Glucose Sensor (Dexcom G7 Sensor) [facility] [place] Indications: Type 2 diabetes mellitus with hyperglycemia, with long-term current use of insulin (CMS/[facility]) 1 UNITS EVERY 10 (TEN) DAYS 9 each 3 02/03/2025 Active dabigatran etexilate 150 mg oral capsule (20 sources)Start: 72-39-8450zyeg 1 capsule by mouth every twelve hoursPradaxa 150 mg capsule take 1 capsule by oral route 2 times every day 150 MG - ActiveStart: 39-42-8275wnku 1 capsule by mouth twice dailyDabigatran Etexilate 150 mg capsule Active 150 MG PO Twice daily July 19, 2025 12:00am Complies with drug therapyStart: 12-20-2024 End: 04-69-3070ijif 1 capsule by mouth in the morningdabigatran etexilate (Pradaxa) 150 MG capsule Indications: Paroxysmal atrial fibrillation ([facility]/HCC) Take 1 capsule (150 mg) by mouth in the morning and 1 capsule (150 mg) before bedtime. Do not crushor chew.. 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 (CMS/HCC) Take 1 tablet (10 mg) by mouth Daily 30 tablet 11 12/30/2024 03/01/2025 Discontinued (Ineffective)diclofenac sodium 0.01 mg/mg topical gel (20 sources)Nonsteroidal Anti-inflammatory DrugStart: 26-31-0716lkmcawbqad sodium 1 % gel APPLY 4 GRAMS TO ABDOMINAL WALL FOUR TIMES DAILY NEEDED 02/16/2025 ActiveStart: 03-80-5980Xkxappirll Sodium (Voltaren Arthritis Pain) 1 % gel Active 4 GM TOPICAL Four times daily as needed for abdominal pain February 16, 2025 12:54pm Apply to abdominal wall Complies with drug therapyStart: 47-12-6942Vepzhxbyxa Sodium (Voltaren Arthritis Pain) 1 % gel Active 4 GM TOPICAL Four times daily as needed for abdominal pain February 16, 2025 12:54pm Apply to abdominal walldicyclomine hydrochloride 10 mg oral capsule (20 sources)AnticholinergicStart: 02-22-2025 End: 24-55-8067itnzpswlmmv (Bentyl) 10 MG capsule Indications: Irritable bowel syndrome with both constipation anddiarrhea Take 1 capsule (10 mg) by mouth in the morning and 1 capsule (10 mg) at noon and 1 capsule(10 mg) in the evening and 1 capsule (10 mg) before bedtime. 200 capsule 2 04/14/2025 ActiveStart: 01-13-2023 End: 75-04-6548klfd 1 tablet by mouth three times dailyDicyclomine 20 mg Tablet Discontinued 20 MG PO Three times daily January 13, 2023 1:00am May 19, 2024 8:19am End: 96-29-5345atra 1 tablet by mouth four times daily as neededdicyclomine (Bentyl) 20 MG tablet Take 20 mg by mouth 4 (four) times a day as needed. 03/01/2025 Discontinued (Ineffective)ezetimibe 10 mg oral tablet (2 sources)Dietary Cholesterol Absorption Inhibitortake 1 tablet by mouth in the morningezetimibe (Zetia) 10 MG tablet Take 10 mg by mouth in the morning. 0 Activeferrous sulfate 325 mg oral tablet (20 sources)Start: 06-85-4014ewdd 1 tablet by mouth once dailyferrous sulfate 325 mg (65 mg iron) tablet take 1 tablet by oral route every day 325 MG - ActiveStart: 02-16-2025 End: 16-00-3293lhvk 1 tablet by mouth every other dayferrous sulfate 325 (65 Fe) MG tablet Indications: Asthma without status asthmaticus without complication, unspecified asthma severity, unspecified whether persistent (HCC) Take 1 tablet (325 mg) by mouth every other day 50 tablet 07/20/2025 ActiveStart: 01-13-2023 End: 22-29-6511tfgg 1 tablet by mouth once dailyFerrous Sulfate 140 mg (45 mg iron) Tablet Extended Release Discontinued 140 MG PO Daily January 1:00am May 18, 2024 10:44amFerrous Sulfate Activefurosemide 40 mg oral tablet (20 sources)Loop DiureticStart: 78-99-3396hyfe 40 mg by mouth once daily before maekpsnxe85 mg, oral, Daily before breakfast, First dose on Fri06/22/24 at 0700 Start: 03-19-2024 End: 94-18-9541omef 1 tablet by mouth once dailyfurosemide 20 mg tablet take 1 tablet by oral route every day 20 MG - No Longer Active Start: 03-19-2024 End: 63-42-2148efvy 3 tablets by mouth in the morningfurosemide (Lasix) 20 MG tablet Take 60 mg by mouth in the morning. 03/19/2024 03/01/2025 Discontinued (Therapy completed)Start: 76-78-0925bgeg 1 tablet by mouth once dailyfurosemide (Lasix) 40 MG tablet Indications: Edema, unspecified type TAKE 1 TABLET BY MOUTH EVERY DAY 90 tablet 12/20/2024 ActiveStart: 79-12-8591Tccrpwyymt 40 mg tablet Active 60 MG PO Daily January 13, 2023 1:00am Complies with drug therapyStart: 42-53-6262qsrl 60 mg by mouth once dailyFurosemide Active 60 MG PO Daily January 13, 2023 1:00amgabapentin 300 mg oral capsule (20 sources)Anti-epileptic AgentStart: 86-59-5332wnkt 1 capsule by mouth twice mg, oral, 2 times daily, First dose on Fri06/21/24 at 2100, Capsules may be opened and sprinkled on food (eg, applesauce, orange juice, puddingStart: 80-16-2446carr 2 capsules by mouth twice dailygabapentin (Neurontin) 300 mg capsule Take 2 capsules (600 mg) by mouth 2 times a day. 01/13/2023 ActiveStart: 01-13-2023 End: 28-38-6657rzok 1 capsule by mouth in the morninggabapentin (Neurontin) 300 MG capsule Indications: Polyneuropathy due to type 2 diabetes mellitus (HCC) Take 1 capsule (300 mg) by mouth in the morning and 1 capsule (300 mg) before bedtime. 180 capsule 3 09/22/2024 09/22/2025 ActiveStart: 04-01-0342xgyb 1 capsule by mouth twice dailygabapentin 300 mg capsule take 1 capsule by oral route 2 times every day - Activeglucagon (rdna) 1 mg injection (2 sources)Antihypoglycemic AgentStart: ml glucose 500 mg/ml prefilled syringe (2 sources)Start: 87-36-4352nnffAEJEYNI hydrochloride 100 mg oral tablet (20 sources)Arteriolar VasodilatorStart: 03-02-2025 End: 22-04-1042xizcGGNILQU (Apresoline) 100 MG tablet 03/02/2025 ActiveStart: 66-13-3891tmnaALFPFLR (Apresoline) 100 MG tablet 03/02/2025 ActiveStart: 12-20-2024 End: 18-89-3434vvsw 1 tablet by mouth twice dailyHydralazine 25 mg tablet Discontinued 25 MG PO Twice daily February 15, 2025 12:00am July 19, 2025 2:52pmStart: 28-58-3081axbjPOIHVXZ (Apresoline) 50 MG tablet Take 75 mg by mouth in the morning and 75 mg before bedtime. 08/22/2024 ActiveStart: 05-10-2024 End: 56-26-6199rhua 1 tablet by mouth twice dailyHydralazine 50 mg tablet Discontinued 50 MG PO Twice daily February 15, 2025 12:00am July 19, 2025 2:52pmStart: 01-13-2023 End: 03-80-0961Dthsnkbttbn 100 mg tablet Discontinued 50 MG PO Twice daily January 13, 2023 1:00am February 15, 2025 6:39pmStart: 35-60-9090sumh 50 mg by mouth twice dailyHydralazine Active 50 MG PO Twice daily January 13, 2023 1:00amStart: 71-50-8230kbzi 100 mg by mouth twice dailyHydralazine Active 100 MG PO Twice daily January 13, 2023 1:00am3 ml insulin glargine 100 unt/ml pen injector (20 sources)Insulin AnalogStart: 07-20-2025 End: 45-41-9622gbmpdi 45 [IU] by subcutaneous injection at bedtimeinsulin glargine (Lantus) 100 UNIT/ML pen Indications: Type 2 diabetes mellitus with hyperglycemia,with long-term current use of insulin (HCC) Inject 45 Units under the skin at bedtime 40.5 mL 3 07/20/2025 07/20/2026 ActiveStart: 03-01-2025 End: 42-41-4546ofmnma 40 [IU] by subcutaneous injection at bedtimeinsulin glargine (Lantus) 100 UNIT/ML pen Indications: Type 2 diabetes mellitus with hyperglycemia,with long-term current use of insulin (HCC) Inject 40 Units under the skin at bedtime 36 mL 3 06/16/2025 07/20/2025 DiscontinuedStart: 02-15-2025 End: 79-12-8714Imupnw Solostar U-100 Insulin 100 unit/mL (3 mL) subcutaneous pen inject by subcutaneous route per prescriber's instructions. Insulin dosing requires individualization. 0.00 - ActiveStart: 12-30-2024 End: 53-17-6809Bouicvx Glargine (Lantus Solostar U-100 Insulin) 100 unit/mL (3 mL) insulin pen Active 80 UNIT SUBCUT Bedtime February 15, 2025 12:00am Complies with drug therapyStart: 09-22-2024 End: 48-65-2972gwobruu glargine (Basaglar KwikPen) 100 UNIT/ML pen Indications: Type 2 diabetes mellitus with hyperglycemia, with long-term current use of insulin (CMS/HCC) Inject 75 Units under the skin at daszftv59 mL 11 09/22/2024 12/30/2024 DiscontinuedStart: 09-22-2024 End: 77-98-5553rrgxxs 70 [IU] by subcutaneous injection at bedtimeinsulin glargine (Lantus) 100 UNIT/ML injection Indications: Type 2 diabetes mellitus with hyperglycemia, with long-term current use of insulin (CMS/HCC) Inject 70 Units under the skin at bedtime 09/22/2024 09/22/2024 Discontinued (Reorder) Start: 09-22-2024 End: 85-08-2470ikywyz 75 [IU] by subcutaneous injection at bedtimeinsulin glargine (Lantus) 100 UNIT/ML injection Indications: Type 2 diabetes mellitus with hyperglycemia, with long-term current use of insulin (CMS/HCC) Inject 75 Units under the skin at bedtime 22.5 mL 11 09/22/2024 09/22/2024 Discontinued (Reorder)Start: 03-18-2024 End: 43-78-4900upekbf 40 [IU] by subcutaneous injection at bedtimeinsulin glargine (Lantus) 100 UNIT/ML injection Indications: Type 2 diabetes mellitus with hyperglycemia, with long-term current use of insulin (CMS/HCC) Inject 40 Units under the skin at bedtime 10 mL 12 03/18/2024 09/22/2024 Discontinued Start: 03-02-2549Bspnblnc KwikPen U-100 Insulin 100 unit/mL (3 mL) pen Inject 50 Units under the skin once daily at bedtime. 11/17/2023 ActiveStart: 11-14-2023 insulin glargine (Basaglar KwikPen) 100 UNIT/ML pen Indications: Type 2 diabetes mellitus with hyperglycemia, unspecified whether nursing home insulin use (CMS/HCC) INJECT 86 UNITS UNDER THE SKIN AT AT BEDTIME 75 mL 3 11/14/2023 Active insulin glargine (Semglee) 100 UNIT/ML injection Inject 86 Units under the skin at bedtime. 0 ActiveSemglee 100 UNIT/ML as directed Subcutaneous Not-Taking Insulin Glargine-Yfgn (2 sources)Start: 31-54-5578bbcnpe 50 [IU] by subcutaneous injection at bedtime Insulin Glargine-Yfgn Active 50 UNIT SUBCUT Bedtime May 18, 2024 12:00am insulin lispro 100 unt/ml injectable solution (1 source)Insulin AnalogStart: 20-69-5919vahkmaz, regular, human 100 unt/ml injectable solution (20 sources)InsulinStart: 03-60-8877IwklCIO R 100 UNIT/ML injection Indications: Type 2 diabetes mellitus with hyperglycemia, with long-term current use of insulin (HCC) INJECT 22 UNITS UNDER THE SKIN IN THE MORNING, 22 UNITS AT NOON AN D 22 UNITS IN THE EVENING WITH MEALS 40 mL 2 06/27/2025 ActiveStart: 09-22-2024 insulin regular (NovoLIN R) 100 UNIT/ML injection Indications: Type 2 diabetes mellitus with hyperglycemia, with long-term current use of insulin (HCC) Inject 0.22 mL (22 Units) under the skin in themorning and 0.22 mL (22 Units) at noon and 0.22 mL (22 Units) in the evening. Inject with meals. Pthas sliding scale so disregard sig. 40 mL 2 09/22/2024 ActiveStart: 01-29-2024 End: 88-46-4636wrcozk 22 [IU] by subcutaneous injection onceinsulin regular (NovoLIN R) 100 UNIT/ML injection Indications: Type 2 diabetes mellitus with hyperglycemia, with long-term current use of insulin (CMS/HCC) INJECT DIRECTED UNDER THE SKIN PER SLIDING SCALE WITH MAX OF 22 UNITS PER DAY 40 mL 2 01/29/2024 09/22/2024 Discontinued (Reorder)Start: 70-22-0013fzujno 10 [IU] by subcutaneous injection once before mealtimeInsulin Regular Human (Novolin R Flexpen) 100 unit/mL (3 mL) Insulin Pen Active 22 UNIT SUBCUT 3x/Day before meals January 13, 2023 1:00am if less then 150 does not take insulin if its greater the 150takes 10units Complies with drug therapyStart: 08-27-2909piwcbk 10 [IU] by subcutaneous injection once before mealtimeInsulin Regular Human (Novolin R Flexpen) 100 unit/mL (3 mL) Insulin Pen Active 10 UNIT SUBCUT 3x/Day before meals January 13, 2023 1:00am if less then 150 does not take insulin if its greater the 150takes 10unitsStart: 00-29-8426njchpp 9 [IU] by subcutaneous injection three times dailyInsulin Regular Human (Novolin R Flexpen) 100 unit/mL (3 mL) Insulin Pen Active 9 UNIT SUBCUT Threetimes daily January 13, 2023 1:00am Start: 37-13-5911IjnqDJM R 100 UNIT/ML injection Inject 20 mL under the skin in the morning. 0 10/24/2022 Active End: 44-35-4326Ewkiesa R Regular U-100 Insulin 100 unit/mL injection solution inject by subcutaneous route per prescriber's instructions. Insulin dosing requires individualization. 0. No Longer ActiveNovoLIN R 100 UNIT/ML as directed Injection Activeketorolac tromethamine 5 mg/ml ophthalmic solution (20 sources)Nonsteroidal Anti-inflammatory Drug, Cyclooxygenase InhibitorStart: 09-01-2024 End: 33-01-1106zbbrwotzq (Acular) 0.5 % ophthalmic solution 09/01/2024 03/01/2025 Discontinued (Ineffective)Start: 07-13-2024 End: 97-62-0098bytc 1 drop(s) into the eye(s) in the morningketorolac (Acular) 0.5 % ophthalmic solution Indications: Cataract mature, total senile Administer 1 drop into affected eye(s) in the morning and 1 drop before bedtime. 5 mL 1 07/13/2024 08/12/2024 ActivelevoFLOXacin 500 mg oral tablet (11 sources)Quinolone AntimicrobialStart: 09-20-2025 End: 93-34-4218aitd 1 tablet by mouth once dailylevoFLOXacin (Levaquin) 500 MG tablet Indications: Acute non-recurrent pansinusitis Take 1 tablet (500 mg) by mouth Daily for 10 days 10 tablet 09/20/2025 09/30/2025 ActiveStart: 08-24-2025 End: 27-06-7112iurj 1 tablet by mouth once dailylevoFLOXacin (Levaquin) 500 MG tablet Indications: Acute non-recurrent pansinusitis Take 1 tablet (500 mg) by mouth Daily for 10 days 10 tablet 08/24/2025 09/03/2025 ActiveStart: 09-22-2024 End: 43-88-7829hqox 1 tablet by mouth once dailylevoFLOXacin (Levaquin) 500 MG tablet Indications: Acute asthmatic bronchitis (CMS/HCC) Take 1 tablet (500 mg) by mouth Daily for 10 days 10 tablet 09/22/2024 10/02/2024 Activelisinopril 20 mg oral tablet (20 sources)Angiotensin Converting Enzyme InhibitorStart: 27-75-1052pviwjmlruw 20 MG tablet Take 20 mg by mouth 05/10/2024 Activeloratadine 10 mg oral tablet (20 sources)Start: 55-17-6142hjxg 1 tablet by mouth in the morningloratadine (Claritin) 10 MG tablet Take 10 mg by mouth in the morning. 02/15/2025 Active methocarbamol 500 mg oral tablet (20 sources)Muscle RelaxantStart: 64-41-0922lhbn 1 tablet by mouth every eight hours as neededmethocarbamol (Robaxin) 500 MG tablet Take 500 mg by mouth every 8 (eight) hours if needed 05/03/2025 ActivemethylPREDNISolone (4 sources)CorticosteroidStart: 08-24-2025 End: 18-44-9012txcfeiMXXXPZIqhdcd (Medrol Dospak) 4 MG tablets Indications: Acute non-recurrent pansinusitis Follow schedule on package instructions 21 tablet 08/24/2025 08/31/2025 ActiveStart: 09-22-2024 End: 12-09-8377aadgqqNHNSYKYehbha (Medrol Dospak) 4 MG tablets Indications: Acute asthmatic bronchitis (CMS/HCC) Follow schedule on package instructions 21 tablet 09/22/2024 09/29/2024 ExpiredMultivitamin (Daily Multi-Vitamin) tablet (6 sources)Start: 37-99-9285cajp 1 tablet by mouth once daily in the morning Multivitamin (Daily Multi-Vitamin) tablet Active 1 TAB PO Every morning February 15, 2025 12:00am Complies with drug therapyStart: 12-07-2391nlby 1 tablet by mouth once daily in the morningStart: 71-39-7966kmql 1 tablet by mouth once dailyMultivitamin (Daily Multi-Vitamin) tablet Active 1 TAB PO Daily February 15, 2025 12:00am Complies with drug therapyStart: 04-77-7824nwhc 1 tablet by mouth once dailyMultivitamin (Daily Multi-Vitamin) tablet Active 1 TAB PO Daily February 15, 2025 12:00amMultivitamin preparation (5 sources)Multiple Vitamins tablet qd - Activeofloxacin 3 mg/ml ophthalmic solution (1 source)Quinolone AntimicrobialStart: 07-13-2024 End: 83-99-9079rdli 1 drop(s) into the eye(s) five times dailyofloxacin (Ocuflox) 0.3 % ophthalmic solution Indications: Cataract mature, total senile Administer1 drop into the right eye 5 (five) times a day for 1 day Starting 1 day before surgery, continue after surgery as directed 5 mL 1 07/13/2024 07/14/2024 Activeondansetron 4 mg disintegrating oral tablet (7 sources)Serotonin-3 Receptor AntagonistStart: 21-07-9281joiw 1 tablet by mouth every eight hours as neededondansetron ODT (Zofran-ODT) 4 mg disintegrating tablet Take 1 tablet (4 mg) by mouth every 8 hoursif needed for nausea or vomiting. 02/12/2024 Activetake 1 tablet by mouth every twenty-four hoursOndansetron HCl 4 MG 1 tablet Orally Once a day Not-TakingOzempic (3 sources)Ozempic ActiveOzempic, 1 MG/DOSE, 4 MG/3ML solution pen-injector (2 sources)inject 1 mg by subcutaneous injection every weekOzempic, 1 MG/DOSE, 4 MG/3ML solution pen-injector Inject 1 mg under the skin 1 (one) time per week. 0 Activepantoprazole 40 mg delayed release oral tablet (20 sources)Proton Pump InhibitorStart: 03-02-2025 End: 60-68-7786gzss 1 tablet by mouth before mealtimepantoprazole (ProtoNix) 40 MG EC tablet Take 40 mg by mouth in the morning. Take before meals. 03/02/2025 03/02/2026 Activemicroencapsulated potassium chloride 20 meq extended release oral tablet (20 sources)Start: 27-13-9170qzki 1 tablet by mouth once dailypotassium chloride CR (Klor-Con M20) 20 MEQ ER tablet Indications: Benign essential hypertension TAKE 1 TABLET(20 MEQ) BY MOUTH DAILY 90 tablet 08/24/2025 ActiveStart: 61-57-6663sgsu 1 tablet by mouth once daily at mealtimepotassium chloride ER 20 mEq tablet,extended release take 1 tablet by oral route every day with food 20 MEQ - ActiveStart: 01-13-2023 End: 96-06-5616qhjl 1 tablet by mouth once dailypotassium chloride CR (Klor-Con M20) 20 MEQ ER tablet Indications: Benign essential hypertension Take 1 tablet (20 mEq) by mouth Daily 90 tablet 04/14/2025 ActiveprednisoLONE acetate 10 mg/ml ophthalmic suspension (20 sources)CorticosteroidStart: 09-01-2024 End: 40-02-0675ijhooxhzCNSG acetate (Pred-Forte) 1 % ophthalmic suspension 09/01/2024 03/01/2025 Discontinued (Ineffective)Start: 07-13-2024 End: 69-27-8003smaocoqpBQNW acetate (Pred-Forte) 1 % ophthalmic suspension Indications: Cataract mature, total senile Administer 1 drop into both eyes in the morning and 1 drop at noon and 1 drop in the evening and1 drop before bedtime. Do all this for 14 days. 5 mL 1 07/13/2024 07/27/2024 Active spironolactone 25 mg oral tablet (20 sources)Aldosterone Antagonist End: 30-07-3197tmql 1 tablet by mouth in the morningspironolactone (Aldactone) 25 MG tablet Take 25 mg by mouth in the morning. 03/01/2025 Discontinued (Ineffective) Completed/Discontinued Medications MedicationDrug Class(es)DatesSig (Normalized)Sig (Original)acetaminophen 325 mg / oxyCODONE hydrochloride 5 mg oral tablet (13 sources)Opioid AgonistStart: 06-15-2024 End: 14-41-7565joss 1 tablet by mouth every six hours for painoxyCODONE- acetaminophen (Percocet) 5-325 mg tablet Indications: PAD (peripheral artery disease) (CMS-HCC) Take 1 tablet by mouth every 6 hours if needed for severe pain (7 - 10) for up to 7 days. 5 tablet 06/15/2024 06/22/2024 Discontinued (Stop Taking at Discharge)Start: 06-03-2024 End: 84-02-9591zpqi 1 tablet by mouth every eight hours as needed for pain Oxycodone-Acetaminophen (Percocet) 5-325 mg tablet Discontinued 1 TAB PO Every 8 hours as needed for pain 29 08June 03, 2024 February 15, 2025 6:45pmStart: 12-09-2023 End: 22-71-6379eslk 1 tablet by mouth every eight hours for painoxyCODONE- acetaminophen (Percocet) 5-325 MG tablet Indications: Pain Take 1 tablet by mouth every 8(eight) hours if needed for severe pain for up to 5 days 15 tablet 0 12/09/2023 12/14/2023 Activealbuterol 0.833 mg/ml / ipratropium bromide 0.167 mg/ml inhalation solution (18 sources)Anticholinergic, beta2-Adrenergic AgonistStart: 09-22-2024 End: 14-57-6722ylloysrutpf-albuterol (Duo-Neb) 0.5-2.5 mg/3 mL nebulizer solution Indications: Acute asthmatic bronchitis (CMS/HCC) Take 3 mL by nebulization in the morning and 3 mL in the evening and 3 mL before bedtime. 180 mL 11 09/22/2024 12/30/2024 Discontinued (Cost of medication)Albuterol Sulfate (2.5 MG/ 3 ML) 2.5 MG/3ML 0.083% Nebulization Solution (3 sources)Albuterol Sulfate (2.5 MG/ 3 ML) 2.5 MG/3ML 0.083% Nebulization Solution 3ml Inhalation 4 times a day Not-TakingAlbuterol Sulfate (2.5 MG/ 3 ML) 2.5 MG/3ML 0.083% Nebulization Solution 3ml Inhalation 4 times a day Active aspirin 81 mg chewable tablet (15 sources)Platelet Aggregation Inhibitor, Nonsteroidal Anti-inflammatory Drug Start: 01-13-2023 End: 72-80-1343gskc 1 tablet by mouth once dailyAspirin 81 mg Tablet,Chewable Discontinued 81 MG PO Daily January 13, 2023 1:00am May 18, 2024 10:44amBaby Aspirin Activeclopidogrel 75 mg oral tablet (20 sources)P2Y12 Platelet InhibitorStart: 01-08-2024 End: 90-29-8528zpor 1 tablet by mouth once dailyClopidogrel 75 mg tablet Discontinued 75 MG PO Daily May 18, 2024 12:00am June 09, 2025 9:33amtake 1 tablet by mouth every twenty-four hoursClopidogrel Bisulfate 75 MG 1 tablet Orally Once a day Not-TakingContinuous Blood Gluc Sensor (Dexcom G7 Sensor) misc (20 sources)Start: 12-15-2023 End: 49-14-8953Jmjxujdubw Blood Gluc Sensor (Dexcom G7 Sensor) misc Indications: Type 2 diabetes mellitus with hyperglycemia, with long-term current use of insulin (CMS/HCC) 1 Disk Every 10 (ten) days 3 each 11 12/15/2023 02/03/2025 DiscontinuedStart: 52-32-4193Jiifgtnpxe Blood Gluc Sensor (Dexcom G7 Sensor) misc Indications: Type 2 diabetes mellitus with hyperglycemia, with long-term current use of insulin (CMS/HCC) 1 Disk Every 10 (ten) days 3 each 11 12/15/2023 ActiveInsulin Glargine-Yfgn (3 sources)Start: 05-18-2024 End: 23-63-5800Dggzbuq Glargine-Yfgn 100 unit/mL solution Discontinued 50 UNIT SUBCUT Bedtime May 18, 2024 12:00am February 15, 2025 6:44pmInsulin Glargine- Yfgn 100 unit/mL solution (3 sources)Start: 05-18-2024 End: 53-20-4246Prcqphu Glargine-Yfgn 100 unit/mL solution Discontinued 50 UNIT SUBCUT Bedtime May 18, 2024 12:00am February 15, 2025 6:44pm L-Vgzbiucurubg-O4-B12 3-35-2 MG (3 sources)take 1 tablet by mouth twice dghvmQ-Xbfnuadbmctz-C5-B12 3-35-2 MG 1 tablet Orally Twice a day Not-TakingLORazepam 0.5 mg oral tablet (20 sources)Benzodiazepine End: 36-00-7910kvhm 1 tablet by mouth every eight hours as neededLORazepam (Ativan) 0.5 MG tablet Take 0.5 mg by mouth every 8 (eight) hours if needed 12/30/2024 Discontinued (Therapy completed)take 1 tablet by mouth every twenty- four hoursLORazepam 0.5 MG 1 tablet at bedtime as needed Orally Once a day Not-Takingmetoprolol tartrate 100 mg oral tablet (3 sources)beta-Adrenergic Blockertake 1 tablet by mouth every twelve hours Metoprolol Tartrate 100 MG 1 tablet with food Orally Twice a day Not-Taking Semaglutide (11 sources)Start: 01-13-2023 End: 47-24-8833dotyrn 1 mg by subcutaneous injection every weekSemaglutide (Ozempic) 1 mg/dose (4 mg/3 mL) pen injector Discontinued 1 MG SUBCUT every week January 13, 2023 1:00am May 18, 2024 10:45amStart: 07-84-8522rryuuz 1 mg by subcutaneous injection every weekSemaglutide (Ozempic) 1 mg/dose (4 mg/3 mL) pen injector Active 1 MG SUBCUT every week January 13, 2023 1:00amStart: 01-13-2023 inject 1 mg by subcutaneous injection every weekSemaglutide (Ozempic) 1 mg/dose (4 mg/3 mL) pen injector Active 1 MG SUBCUT every week January 13, 2023 12:00am Semglee 100 UNIT/ML (2 sources)Semglee 100 UNIT/ML as directed Subcutaneous Not-Tflyif8368 ml sodium chloride 9 mg/ml injection (1 source)Start: 06-21-2024 End: 19-82-5127670 mL/hr, intravenous, Continuous, Starting on Fri06/21/24 at 1745, For 6 hours, Recovery & OnUnit, 6-12 hours post procedure. Post-Procedure Hydration Protocol ACC/AHA/MORRO DEXTRIN (3 sources)Benefiber - as directed Orally Not-TakingBenefiber - as directed Orally Active Problems Active Problems Problem ClassificationProblemDateDocumented DateEpisodic/ChronicAcute myocardial infarction (20 sources)Non-ST elevation (NSTEMI) myocardial infarction; Translations: [Myocardial infarction]Onset: 432576-05-4855PmrofcoHmhxlcs disorders (20 sources)Generalized anxiety disorder; Translations: [Generalized anxiety disorder]Onset: 502951-99-3316JckwfrmZgqmrw (20 sources)Asthmatic bronchitis; Translations: [Unspecified asthma, uncomplicated]Onset: 447024-31-7543GkewtchGrwaltg dysrhythmias (20 sources)Unspecified atrial fibrillation; Translations: [Paroxysmal atrial fibrillation]Onset: 710674-29-2861PzofvnyHgfpimzf (20 sources)Combined forms of age-related cataract, bilateral; Translations: [Age-related nuclear cataract, bilateral]Onset: 05-05-2024 Resolved: 02-82-1823ItfidhnUfqtqgy kidney disease (2 sources)Chronic kidney disease stage 3B ; Translations: [Chronic kidney disease, stage 3b ([facility])]07-08-2960ApiitgeJghzwuk ulcer of skin (20 sources)Non-pressure chronic ulcer of other part of left foot limited to breakdown of skin; Translations: [Non-pressure chronic ulcer of other part of left foot with fat layer exposed]Onset: 60-73-6926VbqcoasWjzhromsylfp of device; implant or graft (20 sources)Arteriosclerosis of arterial coronary artery bypass graft; Translations: [Atherosclerosis of coronary artery bypass graft(s) without angina pectoris]Onset: 698645-66-8385RtbdrwaUgtsphshks heart failure; nonhypertensive (20 sources)Acute combined systolic (congestive) and diastolic (congestive) heart failure; Translations: [Acutecombined systolic and diastolic heart failure]Onset: 653482-73-7982IqehwznOdsvyloj atherosclerosis and other heart disease (20 sources)Atherosclerotic heart disease of [place] coronary artery without angina pectoris; Translations: [Coronary atherosclerosis]Onset: 07-23-2022 93-57-3661DcwxkvzVpskgugm atherosclerosis and other heart disease (3 sources)Presence of aortocoronary bypass graft; Translations: [PRESENCE AORTOCORONARY BYPASS GRAFT]Onset: 49-62-7478EclxvjfrRcpnqkqejp and other anemia (4 sources)Iron deficiency anemia, unspecified; Translations: [IRON DEFICIENCY ANEMIA UNSPECIFIED]Onset: 86-79-0964ZrpmeotwIxkegpdhkc and other anemia (6 sources)Anemia, unspecified; Translations: [Anemia, unspecified]Onset: 24-20-5374TcwgrifoXacxogyz mellitus with complications (20 sources)Diabetes mellitus due to underlying condition with foot ulcer; Translations: [Type 2 diabetes mellitus with hyperglycemia]Onset: 01-09-2021 Resolved: 70-95-5401XpkbhaoGfpmqhom mellitus without complication (20 sources)Type 2 diabetes mellitus without complications; Translations: [Type 2 diabetes mellitus without complication]Onset: 12-29-2012 Resolved: 509963-39-6413BuoyvtnWyrusfp on above:Problem List clean-up per request of Phys. EHR CmteDisorders of lipid metabolism (20 sources)Pure hypercholesterolemia, unspecified; Translations: [Mixed hyperlipidemia]Onset: 498851-03-1891PffinblYzrxwro on above:Problem List clean-up per request of Phys. EHR CmteDiverticulosis and diverticulitis (20 sources)Diverticulosis of colon; Translations: [Diverticulosis of large intestine without perforation or abscess without bleeding]Onset: 03-29-2010 55-45-6293FfcbkbpL Codes: Fall (1 source)Unspecified fall, initial encounter; Translations: [UNSPECIFIED FALL INITIAL ENCOUNTER]Onset: 00-28-5722HntleqlxXziavnkvsp disorders (1 source)Gastro-esophageal reflux disease without esophagitis; Translations: [GERD WITHOUT ESOPHAGITIS]Onset: 02-48-0758TkrcmiaDdgrryfet hypertension (20 sources)Essential (primary) hypertension; Translations: [Benign essential hypertension]Onset: 995244-69-1937UkuzpheStxcgmn on above:Problem List clean-up per request of Phys. EHR CmteGastritis and duodenitis (20 sources)Atrophic gastritis; Translations: [Chronic atrophic gastritis without bleeding]Onset: 470872-89-3301PntjcbeEjeo and other crystal arthropathies (20 sources)Chondrocalcinosis; Translations: [Other chondrocalcinosis, unspecified site]Onset: 896789-84-7993EznknzcLmsdljfq; including migraine (20 sources)Migraine; Translations: [Migraine, unspecified, not intractable, without status migrainosus]Onset: 431814-87-0034XxdbxmkJoqdksan; including migraine (3 sources)Headache; including migraine; Translations: [HEADACHE UNSPECIFIED] Onset: 32-95-2232Tnbko valve disorders (20 sources)Nonrheumatic aortic (valve) stenosis; Translations: [Aortic stenosis, non-rheumatic ]Onset: 14-43-1854UpyskjiYwvjzrqvvgbl with complications and secondary hypertension (1 source)Hypertensive heart disease with heart failure; Translations: [HTN HEART DISEASE W/HEART FAIL]Onset: 62-86-6641ZiogkfyNgttdmukjsagj and screening for infectious disease (2 sources)Vaccination needed; Translations: [Encounter for immunization] 97-95-6615FmgzzbrbJcxkiaotl arthritis and osteomyelitis (except that caused by tuberculosis or sexually transmitted disease) (20 sources)Infection of bone; Translations: [Osteomyelitis, unspecified]Onset: 159555-71-5964NrtxfxzRbfhtjdgat disorders (20 sources)Decreased estrogen level; Translations: [Other primary ovarian failure]Onset: 085020-03-1976BvtydhqBafo disorders (2 sources)Single episode of major depression in full remission; Translations: [Major depressive disorder, single episode, in full remission]84-56-7817Fndxdfu Mycoses (14 sources)Pain in toe; Translations: [Tinea unguium]66-30-9229Vqireaix Nonmalignant breast conditions (2 sources)Breast finding ; Translations: [Other signs and symptoms in breast] 60-85-7183HdjupyszJdqdswbhh or stenosis of precerebral arteries (20 sources)Carotid artery stenosis; Translations: [Occlusion and stenosis of unspecified carotid artery]Onset: 200804-68-1611YwwraxuGgwdrjn on above: Problem List clean-up per request of Phys. 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]Onset: 26-52-6934IqlattbxSwukb aftercare (1 source)Other nursing home (current) drug therapy; Translations: [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]Onset: 83-11-1720EvzlijvfWtaov aftercare (1 source)terminal [facility] (current) use of antithrombotics/antiplatelets; Translations: [DETENTION ANTITHROMBOT/ANTIPLATLETS]Onset: 49-88-0438Gqgpnjcp Other aftercare (1 source)terminal [facility] (current) use of insulin; Translations: [DETENTION CURRENT USE OF INSULIN]Onset: 30-17-4480RuhqxdswHebck aftercare (1 source)terminal [facility] (current) use of aspirin; Translations: [DETENTION CURRENT USE OF ASPIRIN]Onset: 17-51-3024KvtxtyfhIvpfy circulatory disease (2 sources)Peripheral vascular angioplasty status; Translations: [Peripheral vascular angioplasty status]Onset: 58-47-0377SwdleianPmwbo circulatory disease (2 sources)Low blood pressure; Translations: [Hypotension, unspecified] 32-07-8740FoorpglxWzhzc connective tissue disease (4 sources)Calcaneal spur of right foot; Translations: [Calcaneal spur, right foot]57-23-8980GtdgupbyKuotk connective tissue disease (14 sources)Right achilles tendonitis; Translations: [Achilles tendinitis, right leg]23-00-2581PwuvmnwjEyixg connective tissue disease (5 sources)Musculoskeletal pain; Translations: [Myalgia, other site]02-16-2025 EpisodicOther connective tissue disease (1 source)Achilles tendinitis, right leg; Translations: [Achilles tendinitis, right leg]Onset: 92-49-7800DaemoqyvWdojq eye disorders (7 sources)Vitreous hemorrhage, bilateral; Translations: [Vitreous hemorrhage, bilateral]Onset: 04-35-7735KzjssjkBygox eye disorders (5 sources)Vitreous hemorrhageOnset: 09-61-4719ZgpanhrKhsnd eye disorders (20 sources)Vitreous hemorrhage, left eyeChronicOther eye disorders (20 sources)Hemorrhage of right vitreous body; Translations: [Vitreous hemorrhage, right eye]Onset: 05-05-2024 Resolved: 357668-18-3041UvatvhoPuzhq eye disorders (2 sources)Hemorrhage of left vitreous body; Translations: [Vitreous hemorrhage, left eye]86-39-8557OlyyfkuXbtdo eye disorders (3 sources)Vitreous hemorrhage, right eye; Translations: [Vitreous hemorrhage of right eye]Onset: 61-11-6800AgctpqlLmqjo eye disorders (1 source)Hemorrhage of bilateral vitreous bodies; Translations: [Hemorrhage of bilateral vitreous bodies]ChronicOther gastrointestinal disorders (20 sources)Irritable bowel syndrome; Translations: [Irritable bowel syndrome without diarrhea]Onset: 726323-99-6451QaylqfpBzimw injuries and conditions due to external causes (1 source)Other specified injuries of head, initial encounter; Translations: [OTH SPEC INJURIES HEAD INITIAL ENC]Onset: 09-07-1581TfhfafvyAqnyu lower respiratory disease (2 sources)Cough; Translations: [Acute cough]62-52-4730SkdfnpxsYzuub non- traumatic joint disorders (1 source)Pain in left wrist; Translations: [PAIN IN LEFT WRIST]Onset: 67-86-8144PtybtavyAbmxj upper respiratory infections (4 sources)Acute pansinusitis; Translations: [Acute pansinusitis, unspecified] 07-42-6276OclakrtmFciqtlbwdm and visceral atherosclerosis (20 sources)Peripheral vascular disease; Translations: [Peripheral vascular disease, unspecified]Onset: 09-20-2021 Resolved: 44-65-9539MyoanscFurbpoec codes; unclassified (2 sources)Hypersomnia, unspecified; Translations: [Hypersomnia, unspecified] Onset: 51-44-3129MccbciwLybzfszo codes; unclassified (6 sources)Pain; Translations: [Pain, unspecified]50-13-9084NtqfabaiRcrrajl detachments; defects; vascular occlusion; and retinopathy (20 sources)Bilateral epiretinal membrane of eyes; Translations: [Puckering of macula, bilateral]Onset: 203605-49-5948KlgrvvvHtpypgbxyi arthritis and related disease (2 sources)Rheumatoid arthritis; Translations: [Rheumatoid arthritis, unspecified]34-09-8284KccnyjfKmxbhyveq and history of mental health and substance abuse codes (1 source)Personal history of nicotine dependence; Translations: [PERSONAL HISTORY OF NICOTINE DEPEND]Onset: 61-67-0836VvevwlmiCnjejywoydp; intervertebral disc disorders; other back problems (1 source)Pain in thoracic spine; Translations: [PAIN IN THORACIC SPINE]Onset: 38-98-2580UeuhppcxWwlpnsk and strains (2 sources)Unspecified sprain of left wrist, initial encounter; Translations: [Strain of muscle and tendon of back wall of thorax, initial encounter]Onset: 17-92-5170GehqhofoGpmpanbcrzeu (4 sources)CONTACT W/AND (SUSP) EXPOS COVID-19; Translations: [CONTACT W/AND (SUSP) EXPOS COVID-19]Onset: 66-03-9391Otclzifwnkrw (2 sources)A [facility] screening has identified you as FRAIL [...] Four Ways to Beat the Frailty Risk [email or web address] infection (1 source)Disease caused by 2019-nCoV; Translations: [UNVACCINATED COVID 19] Onset: 07-02-2022 Past or Other Problems Problem ClassificationProblemDateDocumented DateEpisodic/ChronicAbdominal pain (20 sources)Abdominal pain; Translations: [Unspecified abdominal pain]Onset: 855264-49-8204QupxvtyfYkhmgicod infection; unspecified site (20 sources)Klebsiella pneumoniae [K. pneumoniae] as the cause of diseases classified elsewhere; Translations: [Staphylococcal infectious disease]Onset: 288057-40-8576FlpnfytoNdxujltbivbg of device; implant or graft (20 sources)Mechanical complication of musculoskeletal implant; Translations: [Other mechanical complication ofother internal orthopedic devices, implants and grafts, initial encounter]Onset: 888443-72-2360ZgvivjmcMnwtjvddykekn of surgical procedures or medical care (20 sources)Dehiscence of surgical wound; Translations: [Disruption of external operation (surgical) wound, notelsewhere classified, initial encounter]Onset: 698938-57-7382CsvpdnxqZsfkgnxayr and other anemia (20 sources)Anemia; Translations: [Anemia, unspecified]Onset: 02-18-2025 98-84-2183UxrdgzpiKsdoefljlv and other anemia (20 sources)Iron deficiency anemia; Translations: [Iron deficiency anemia, unspecified]Onset: 567965-14-7469CdyjwfpjAtssitzv (20 sources)Gangrenous disorder; Translations: [Gangrene, not elsewhere classified]Onset: 231839-84-6650QddxeholTtajcud and fatigue (20 sources)Asthenia; Translations: [Weakness]Onset: 314130-47-3549 EpisodicMood disorders (20 sources)Mood disordersOnset: 021591-97-0131Hnhgrsixyoq chest pain (20 sources)Chest pain, unspecified; Translations: [Chest pain]Onset: 12-29-2012 EpisodicOther aftercare (20 sources)Long-term current use of anticoagulant; Translations: [terminal carman (current) use of anticoagulants]Onset: 325089-19-6131IqrqmbqiTxxva and unspecified benign neoplasm (20 sources)History of polyp of colon; Translations: [History of colon polyps] Onset: 679974-51-1828VxrchusuQawkp bone disease and musculoskeletal deformities (20 sources)Osteopenia; Translations: [Other specified disorders of bone density and structure, unspecified site]Onset: 847154-93-2046VcpokjqrMtput circulatory disease (3 sources)History of peripheral vascular angioplasty; Translations: [Peripheral vascular angioplasty status]67-37-1165TssktcknZsfnj connective tissue disease (20 sources)Pain in limb; Translations: [Pain in unspecified limb]Onset: 187892-49-6187TulivcbgBifzu connective tissue disease (2 sources)Pain of toes of bilateral feet; Translations: [Pain in right toe(s)] 86-41-7308VlibolkfBzwlv connective tissue disease (1 source)Myalgia, other site; Translations: [Myalgia, other site]Onset: 29-11-2756PphmxbybAscoi eye disorders (20 sources)Dry eyes; Translations: [Dry eye syndrome of bilateral lacrimal glands]Onset: 188290-96-6474XhiljtafXowba lower respiratory disease (3 sources)Shortness of breath; Translations: [SHORTNESS OF BREATH]Onset: 19-69-8218VyqaupoeEspoh lower respiratory disease (1 source)Hypoxemia; Translations: [HYPOXEMIA]Onset: 39-25-5194GxlslcwdSpour nutritional; endocrine; and metabolic disorders (20 sources)Overweight; Translations: [Overweight]Onset: EpisodicOther screening for suspected conditions (not mental disorders or infectious disease) (20 sources)Patient encounter status; Translations: [Encounter for screening mammogram for malignant neoplasm of breast]Onset: 521638-86-6120Tjwqudvv Residual codes; unclassified (1 source)Patient's intentional underdosing of medication regimen for other reason; Translations: [PT INTENT UNDERDOS MED OTH REASON]Onset: 07-02-2022 EpisodicResidual codes; unclassified (1 source)Acute pain; Translations: [Pain, unspecified]18-19-1205Rgholgsx Unclassified (1 source)CONTACT W/AND (SUSP) EXPOS COVID-19; Translations: [CONTACT W/AND (SUSP) EXPOS COVID-19]Onset: 69-03-3073Rirgvztlfkzc (13 sources)DM with PDR without ME (chief complaint)Onset: 06-30-2024 Resolved: 02-64-5105Ruydynaiyvnq (5 sources)Possible VH (chief complaint)Onset: 95-47-7100Yddkdlyacazi (5 sources)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)Onset: 09-27-2022 Unclassified (5 sources)diabetic eye exam (chief complaint) NO VISION CHANGES (chief complaint)Onset: 54-86-7271Ltdazlamkczb (10 sources)diabetic retinopathy (chief complaint) denies vision changes (chief complaint)Onset: 10-26-2019 Resolved: 12-29-3314Dwvhivwzukiz (5 sources)diabetic retinopathy (chief complaint) denies new vision change (chief complaint)Onset: 97-00-1509Mmeinpkmaqtr (5 sources)diabetic retinopathy (chief complaint) Decreased vision (chief complaint)Onset: 35-42-7094Okoutrjgihdt (6 sources)PDR (chief complaint)Onset: 08-04-2024 Resolved: 54-67-8276Crqxieuaucnz (2 sources)Patient encounter inggwb90-54-4668Crjhfwmvmabn (1 source)blurred vision (chief complaint)Onset: 44-64-8330Giebqvz tract infections (1 source)Urinary tract infection, site not specified; Translations: [UTI SITE NOT SPECIFIED]Onset: 58-28-6534Nlgboije Results Test NameValueInterpretationReference RangeFacilityBasic Metabolic Panelon 51-21-7482Fpxwthwzut Clr Calc Jlvhjrmt76.79NormHCA [facility] Comment on above:Result Comment: PERFORMED BY: [place] [address] PATHOLOGIST CEMENT [employer] PLANT OPERATOR ARCHIE MENDOZA M.D.Performed By: #### BMP #### [facility] [address] [place] [address] USAGFR/1.73 sq M.predicted MDRD (S/P/Bld) [Vol rate/Area] 46.982 mL/min/{1.73_m2}NormalHca Florida Poinciana Hospital Physician GroupComment on above: Performed By: #### BMP #### [facility] [address] [place], [place] [id number] USACalcium [Mass/volume] in Serum or PlasmaOrdered By: Shamar Bowles on 64-40-9910Tulyjgb [Mass/Vol]9.5 mg/dLNormal8.6-10.3FLakeHealth Beachwood Medical CenterComment on above:Performed By: #### BMP #### [facility] [address] [id number] USACapillary blood glucose measurement by glucometer (mass/volume)Ordered By: Alexis Gilmore on 12-14-1652Jpnvrka [Mass/Vol]209 mg/dL [facility] HospitalComment on above:Random Glucose Reference Range is dependent on time and content of last meal. Glucose of more than 200 mg/dL in a nonstressed, ambulatory subject supports the diagnosis of Diabetes Mellitus.Result Comment: Random Glucose Reference Range is dependent on time and content of last meal. Glucose of more than 200 mg/dL in a nonstressed, ambulatory subject supports the diagnosis of Diabetes Mellitus.Performed By: #### GLULS #### Point of Care testing ,Carbon dioxide, total [Moles/volume] in Serum or PlasmaOrdered By: Shamar Bowles on 34-05-0401PT5 [Moles/Vol]26.0 mmol/XTjbbvw87.0-31.0Mer[facility] Anderson HospitalComment on above:Performed By: #### BMP #### [facility] [address] [place] [address] USAChloride [Moles/volume] in Serum or PlasmaOrdered By: Shamar Bowles on 67-06-2346Onxdgnky [Moles/Vol]102 mmol/QYfowwb38-535EemqquutzMercy Health Anderson HospitalComment on above:Performed By: #### BMP #### [facility] [address] [id number] USACreatinine [Mass/volume] in Serum or PlasmaOrdered By: Shamar Bowles on 64-50-5405Ihtypmnftu [Mass/Vol]1.23 mg/dLHigh0.60-1.20[facility] Anderson HospitalComment on above:Performed By: #### BMP #### [facility] [address] [id number] USAGLUCOSE POCT GLUCOMETERSon 81-78-1541KCFTKSH3Lot7: Cleaned MeterNOMS HealthcareGlucose [Mass/Vol]209 mg/dLNOMS HealthcareComment on above: Random Glucose Reference Range is dependent on time and content of last meal. Glucose of more than 200 mg/dL in a nonstressed, ambulatory subject supports the diagnosis of Diabetes Mellitus. NOMS BgctdkdjopMOUTOEP5Rck2: Cleaned MeterNOMS HealthcareGlucose [Mass/Vol]241 mg/dLNOMS HealthcareComment on above:Random Glucose Reference Range is dependent on time and content of last meal. Glucose of more than 200 mg/dL in a nonstressed, ambulatory subject supports the diagnosis of Diabetes Mellitus. NOMS HealthcareGlucose [Mass/Vol]261 mg/dLNOMS HealthcareComment on above:Random Glucose Reference Range is dependent on time and content of last meal. Glucose of more than 200 mg/dL in a nonstressed, ambulatory subject supports the diagnosis of Diabetes Mellitus. NOMS HealthcareGlomerular filtration rate [Volume Rate/Area] in Serum, Plasma or Blood by CreatinineOrdered By: Shamar Bowles on 06-76-5726Czspzqzflb filtration rate [Volume Rate/Area] in Serum, Plasma or Blood by Ibplqgnneb01.982 mL/Min [facility] Anderson HospitalGlucose Poct Glucometerson 33-77-6671Ztyfqms1 Glu2: Cleaned MeterBaptist Medical Center Physician GroupComment on above:Result Comment: PERFORMED BY: [place] [address] PATHOLOGIST [employer] OPERATOR ARCHIE MENDOZA M.D.Performed By: #### GLULS #### Point of Care testing ,Tulisrc0Zst7: Cleaned MeterNoAtrium Health Kings Mountain Physician GroupComment on above: Result Comment: PERFORMED BY: [place] [address] PATHOLOGIST C[employer] PLANT OPERATOR ARCHIE MENDOZA M.D.Performed By: #### GLULS #### Point of Care testing ,Glucose [Mass/Vol]241 mg/dLBaptist Medical Center Physician GroupComment on above: Result Comment: Random Glucose Reference Range is dependent on time and content of last meal. Glucose of more than 200 mg/dL in a nonstressed, ambulatory subject supports the diagnosis of Diabetes Mellitus.Performed By: #### GLULS #### Point of Care testing ,Glucose [Mass/Vol]261 mg/dLBaptist Medical Center Physician GroupComment on above: Result Comment: Random Glucose Reference Range is dependent on time and content of last meal. Glucose of more than 200 mg/dL in a nonstressed, ambulatory subject supports the diagnosis of Diabetes Mellitus. PERFORMED BY: [place] [address] PATHOLOGIST C[employer]ANT OPERATOR ARCHIE MENDOZA M.D.Performed By: #### GLULS #### Point of Care testing ,Glucose [Mass/volume] in Serum or PlasmaOrdered By: Shamar Bowles on 07-22-2025 Glucose [Mass/Vol]239 mg/bSOzel43-455UiroqquspMercy Health Anderson HospitalComment on above:ADA recommended reference rangeRandom Glucose Reference Range is dependent on time and content of last meal. Glucose of more than 200 mg/dL in a nonstressed, ambulatory subject supports the diagnosisof Diabetes Mellitus. Result Comment: Random Glucose Reference Range is dependent on time and content of last meal. Glucose of more than 200 mg/dL in a nonstressed, ambulatory subject supports the diagnosis of Diabetes Mellitus. ADA recommended reference rangePerformed By: #### BMP #### [facility] [address] [place] [address] USANo Panel InformationOrdered By: Alexis Gilmore on 22-05-7644Yybsapp Glucose CommentGlu2: cleaned meterMercy Health Anderson HospitalNo Panel InformationOrdered By: Shamar Bowles on 01-08-3347Xbkrdglr Creatinine Clearance (Chem41.79Mer[facility] Anderson HospitalPotassium [Moles/volume] in Serum or PlasmaOrdered By: Shamar Bowles on 15-10-7799Xndykzyai [Moles/Vol]4.9 mmol/LNormal3.5-5.1FLakeHealth Beachwood Medical CenterComment on above:Performed By: #### BMP #### [place] [address] USASerum or plasma anion gap determinationOrdered By: Shamar Bowles on 17-51-7209Jqhzw gap [Moles/Vol]11.9 mmol/LNormal6.0-15.0Mer[facility] Anderson HospitalComment on above:Performed By: #### BMP #### [place] [address] USASodium [Moles/volume] in Serum or PlasmaOrdered By: Shamar Bowles on 11-97-2955Hioxsw [Moles/Vol]135 mmol/IGxg461-374BoiwkldkwMercy Health Anderson HospitalComment on above:Performed By: #### BMP #### [place] [address] USAUrea nitrogen [Mass/volume] in Serum or PlasmaOrdered By: Shamar Bowles on 43-62-6347Ojvn nitrogen [Mass/Vol]38 mg/dLHigh7-25Mer[facility] Health Anderson HospitalComment on above:Performed By: #### BMP #### [address] [place] [address] USAALBUMIN, RANDOM URINE W/CREATININEon 26-29-3114KIKZKZT, URINE0.4 mg/dLNormalSee Note:Quest DiagnosticsComment on above:Result Comment: Reference Range: Reference Range Not establishedPerformed By: #### 1759, 23736, 7600, 6517, 899 #### [facility] of [place] [address] Etymology Teacher: Jensen Johnson MDALBUMIN/CREATININE RATIO, RANDOM URINE13 mg/g creatNormal<30Quest DiagnosticsComment on above:Result Comment: The ADA defines abnormalities in albumin excretion as follows: Albuminuria Category Result (mg/g creatinine) Normal to Mildly increased <30 Moderately increased 30-299 Severely increased > OR = 300 The ADA recommends that at least two of three specimens collected within a 3-6 month period be abnormal before considering a patient to be within a diagnostic category.Performed By: #### 1759, 75887, 0, 6517, 899 #### [facility] [place] [address] Etymology Teacher: Jensen Johnson MDCreatinine (U) [Mass/Vol]31 mg/gKMnivly79-216 [facility] DiagnosticsComment on above:Performed By: #### 1759, 37386, 7600, 6517, 899 #### [facility] [place] [address] Etymology Teacher: Jensen Johnson MDCBC (H/H, RBC, INDICES, WBC, PLT)on 07-21-2025 Erythrocyte distribution width (RBC) [Ratio]14.1 %Uryfzr11.0-15.0Quest DiagnosticsComment on above:Performed By: #### 1759, 06682, 7600, 6517, 899 #### [facility] of [place] [address] Etymology Teacher: Jensen Johnson MDHematocrit (Bld) [Volume fraction]35.6 %Normal 35.0-45.0Quest DiagnosticsComment on above:Performed By: #### 1759, , 7599, 65, 899 #### [facility] [address], [address] [place] [address] Etymology Teacher: Jensen Johnson MDHemoglobin (Bld) [Mass/Vol]10.9 g/dLLow 11.7-15.5Quest DiagnosticsComment on above:Performed By: #### 1759, , 7599, 65, 899 #### [facility] [address], [address] [place] [address] Etymology Teacher: Jensen Johnson MDMCH (RBC) [Entitic mass]28.2 cqApntoq00.0-33.0 [facility] DiagnosticsComment on above:Performed By: #### 1759, , 7599, 65, 899 #### [facility] [address], [address] [place] [address] Etymology Teacher: Jensen BELLAMYCHC (RBC) [Mass/Vol]30.6 g/dLLow32.0-36.0 [facility] DiagnosticsComment on above:Result Comment: For adults, a slight decrease in the calculated MCHC value (in the range of 30 to 32 g/dL) is most likely not clinically significant; however, it should be interpreted with caution in correlation with other red cell parameters and the patient's clinical condition.Performed By: #### 175, , 7599, 65, 899 #### [facility] [place] [address] Etymology Teacher: Jensen Johnson MDMCV (RBC) [Entitic vol]92.2 zHGrqfgc73.0-100.0 [facility] DiagnosticsComment on above:Performed By: #### 1759, , 7599, 65, 899 #### [facility] [address], [address] [place] [address] Etymology Teacher: Jensen Johnson MDPlatelet mean volume (Bld) [Entitic vol]11.3 fLNormal7.5-12.5Quest DiagnosticsComment on above:Performed By: #### 1759, 97940, 7600, 6517, 899 #### [facility] of [address], [address] [place] [address] Etymology Teacher: Jensen Johnson [facility] Hospitalte[facility] ([facility]) [#/Vol]211 10*3/uLNormal 140-400Quest DiagnosticsComment on above:Performed By: #### 1759, 00769, 7600, 6517, 899 #### [facility] of [address], [address] [place] [address] Etymology Teacher: Jensen Johnson [facility] ([facility]) [#/Vol]3.86 10*6/uLNormal3.80-5.10 [facility] DiagnosticsComment on above:Performed By: #### 1759, 18209, 7600, 6517, 899 #### [facility] of [address], [address] [place] [address] Etymology Teacher: Jensen Johnson MDMANHATTAN EYE, E[facility] AND [facility] ([facility]) [#/Vol]9.7 10*3/uLNormal3.8-10.8 [facility] DiagnosticsComment on above:Performed By: #### 1759, 48412, 7600, 6517, 899 #### [facility] of [address], [address] [place] [address] Etymology Teacher: Jensen Johnson MDCOMPREHENSIVE METABOLIC PANELon 07-21-2025 Albumin [Mass/Vol]4.3 g/dLNormal3.6-5.1Quest DiagnosticsComment on above: Performed By: #### 1759, 51200, 7600, 6517, 899 #### [facility] of [place] [address] Etymology Teacher: Jensen Johnson MDAlbumin/Globulin [Mass ratio]1.7 {ratio}Normal 1.0-2.5Quest DiagnosticsComment on above:Performed By: #### 1759, 38333, 7600, 6517, 899 #### [facility] of [address], [address] [place] [address] Etymology Teacher: Jensen Johnson MDALP [Catalytic activity/Vol]109 U/LNormal 37-153Quest DiagnosticsComment on above:Performed By: #### 1759, 25315, 7600, 6517, 899 #### [facility] of [address], [address] [place] [address] Etymology Teacher: Jensen Johnson MDALT [Catalytic activity/Vol]13 U/LNormal6-29 [facility] DiagnosticsComment on above:Performed By: #### 1759, 15771, 7599, 6517, 899 #### [facility] of [address], [address] [place] [address] Etymology Teacher: Jensen Johnson MDAST [Catalytic activity/Vol]14 U/QUywegc23-46 [facility] DiagnosticsComment on above:Performed By: #### 1759, 89678, 7599, 6517, 899 #### [facility] of [place] [address] Etymology Teacher: Jensen Johnson MDBilirubin [Mass/Vol]0.3 mg/dLNormal0.2-1.2 [facility] DiagnosticsComment on above:Performed By: #### 1759, 79310, 7599, 6517, 899 #### [facility] of [place] [address] Etymology Teacher: Jensen Johnson MDCalcium [Mass/Vol]9.2 mg/dLNormal8.6-10.4Quest DiagnosticsComment on above:Performed By: #### 1759, 43557, 7599, 6517, 899 #### [facility] of [place] [address] Etymology Teacher: Jensen Johnson MDChloride [Moles/Vol]101 mmol/NEjkmoo51-094 [facility] DiagnosticsComment on above:Performed By: #### 1759, 93965, 760, 6517, 899 #### [facility] [place] [address] Etymology Teacher: Jensen Johnson MDCO2 [Moles/Vol]18 mmol/GXyg31-70Wwvlv DiagnosticsComment on above:Performed By: #### 1759, 83220, 7600, 6517, 899 #### [facility] [place] [address] Etymology Teacher: Jensen BUSTOSreatinine [Mass/Vol]1.52 mg/dLHigh0.60-1.00 [facility] DiagnosticsComment on above:Performed By: #### 1759, 70103, 0, 6517, 899 #### [facility] [place] [address] Etymology Teacher: Jensen Johnson MDGFR/1.73 sq M.predicted among non-blacks MDRD (S/P/Bld) [Vol rate/Area]36 mL/min/{1.73_m2}Low> OR = 60Quest DiagnosticsComment on above:Performed By: #### 1759, 06731, 0, 6517, 899 #### [facility] [place] [address] Etymology Teacher: Jensen Johnson MDGlobulin (S) [Mass/Vol]2.5 g/dLNormal1.9-3.7 [facility] DiagnosticsComment on above:Performed By: #### 1759, 75279, 7600, 6517, 899 #### [facility] [place] [address] Etymology Teacher: Jensen Johnson MDGlucose [Mass/Vol]258 mg/kJJtbk23-16Axjdb DiagnosticsComment on above:Result Comment: Fasting reference interval For someone without known diabetes, a glucose value >125 mg/dL indicates that they may have diabetes and this should be confirmed with a follow-up test.Performed By: #### 1759, 52110, 7600, 6517, 899 #### [facility] of [address], [address] [place] [address] Etymology Teacher: Jensen Johnson MDPotassium [Moles/Vol]5.3 mmol/LNormal3.5-5.3 Quest DiagnosticsComment on above:Performed By: #### 1759, 86259, 7600, 6517, 899 #### [facility] of [address], [address] [place] [address] Etymology Teacher: Jensen Johnson MDProtein [Mass/Vol]6.8 g/dLNormal6.1-8.1Quest DiagnosticsComment on above:Performed By: #### 1759, 41119, 7600, 6517, 899 #### [facility] of [address], [address] [place] [address] Etymology Teacher: Jensen Johnson MDSodium [Moles/Vol]137 mmol/PJtctyy068-697Tzreg DiagnosticsComment on above:Performed By: #### 1759, 58261, 7600, 6517, 899 #### [facility] of [address], [address] [place] [address] Etymology Teacher: Jensen Johnson MDUrea nitrogen [Mass/Vol]57 mg/dLHigh7-25Quest DiagnosticsComment on above:Performed By: #### 1759, 16738, 7600, 6517, 899 #### [facility] of [place] [address] Etymology Teacher: Jensen Johnson MDUrea nitrogen/Creatinine [Mass ratio]38 mg/mg High6-22Quest DiagnosticsComment on above:Performed By: #### 1759, 18524, 7600, 6517, 899 #### [facility] of [place] [address] Etymology Teacher: Jensen Johnson MDLIPID PANEL, STANDARD 43-14-0418Janbsjlyoqq [Mass/Vol]187 mg/dLNormal<200Quest DiagnosticsComment on above:Order Comment: FASTING:YES FASTING: YESPerformed By: #### 1759, 20179, 7600, 6517, 899 #### [facility] [address], [address] [place] [address] Etymology Teacher: Jensen BUSTOSholesterol in HDL [Mass/Vol]32 mg/dLLow> OR = 50Quest DiagnosticsComment on above:Order Comment: FASTING:YES FASTING: YESPerformed By: #### 1759, 55281, 7600, 6517, 899 #### [facility] [address], [address] [address] Etymology Teacher: Jensen BUSTOSholestheidi.total/Cholesterol in HDL [Mass ratio]5.8 {ratio}High<5.0Quest DiagnosticsComment on above:Order Comment: FASTING:YES FASTING: YESPerformed By: #### 1759, 16783, 7600, 6517, 899 #### [facility] [address], [address] [place] [address] Etymology Teacher: Jensen Johnson MDLDL-CHOLESTEROLNormalQuest DiagnosticsComment on above:Order Comment: FASTING:YES FASTING: YESResult Comment: LDL cholesterol not calculated. Triglyceride levels greater than 400 mg/dL invalidate calculated LDL results. Reference range: <100 Desirable range <100 mg/dL for primary prevention; <70 mg/dL for patients with CHD or diabetic patients with > or = 2 CHD risk factors. LDL-C is now calculated using the Jailyn calculation, which is a validated novel method providing better accuracy than the Friedewald equation in the estimation of LDL-C. Antonio QIU et al. LAURY. 2013;310(19): 4555-3223 (http://education.NaviExpert.Online Dealer/faq/HZR866)Performed By: #### 1759, 84703, 7600, 6517, 899 #### [facility] [address], [address] [place] [address] Etymology Teacher: Jensen NEW HDL ONVLVQMOXRM208 mg/dL (calc)High<130 Quest DiagnosticsComment on above:Order Comment: FASTING:YES FASTING: YESResult Comment: For patients with diabetes plus 1 major ASCVD risk factor, treating to a non-HDL-C goal of <100 mg/dL (LDL-C of <70 mg/dL) is considered a therapeutic option.Performed By: #### 1759, 21136, 7600, 6517, 899 #### [facility] [address], [address] [place] [address] Etymology Teacher: Jensen Johnson MDTriglyceride [Mass/Vol]863 mg/dLHigh<150Quest DiagnosticsComment on above:Order Comment: FASTING:YES FASTING: YESResult Comment: If a non-fasting specimen was collected, consider repeat triglyceride testing on a fasting specimen if clinically indicated. Anjelica et al. J. of Clin. Lipidol. 2015;9:129-169. There is increased risk of pancreatitis when the triglyceride concentration is very high (> or = 500 mg/dL, especially if > or = 1000 mg/dL). Anjelica et al. J. of Clin. Lipidol. 2015;9:129-169.Performed By: #### 1759, 85736, 7600, 6517, 899 #### [facility] [address], [address] [place] [address] Etymology Teacher: Jensen Baez 11-64-5085ZKY Qn1.88 m[IU]/LNormal 0.40-4.50Quest DiagnosticsComment on above:Performed By: #### 1759, 93626, 7600, 6517, 899 #### [facility] [address], [address] [place] [address] Etymology Teacher: Jensen Johnson MDHbA1c (Bld) [Mass fraction]on 07-20-2025 Interpretation and review of laboratory resultsAbnoMUSC Health Fairfield Emergency HealthcareLaboratory - Hematology and Cell countson 50-79-2411HrQ6x (Bld) [Mass fraction]8 %NOMS HealthcareBasic Metabolic Panelon 59-80-0668FPN/1.73 sq M.predicted MDRD (S/P/Bld) [Vol rate/Area]33.025 mL/min/{1.73_m2}NormalThe [facility] Physician GroupComment on above:Performed By: #### BMP, CBC #### [facility] [address] [place] [address] USABasic metabolic 1998 panelon 45-82-0166Iizcz gap [Moles/Vol]14.3 mmol/L6.0 - 15.0NOMS HealthcareCalcium [Mass/Vol]8.7 mg/dL8.6 - 10.3 mg/dLNOMS HealthcareChloride [Moles/Vol]100 mmol/L98 - 107 mmol/LNOMS HealthcareCO2 [Moles/Vol]23.8 mmol/L21.0 - 31.0 mmol/LNOMS HealthcareCreatinine (U) [Mass/Vol]1.65 mg/dLHigh0.60 - 1.20 mg/dLNOMS HealthcareGFR/1.73 sq M.predicted MDRD (S/P/Bld) [Vol rate/Area]33.025 mL/min/{1.73_m2}[facility] Glucose [Mass/Vol]225 mg/bYMhin62 - 100 mg/dLNOMT HealthcareComment on above: Random Glucose Reference Range is dependent on time and content of last meal. Glucose of more than 200 mg/dL in a nonstressed, ambulatory subject supports the diagnosis of Diabetes Mellitus. ADA recommended reference range Interpretation and review of laboratory resultsAbnormalNOMS HealthcarePotassium [Moles/Vol]5.1 mmol/L3.5 - 5.1 mmol/LNOMS HealthcareSodium [Moles/Vol]133 mmol/L Cmg610 - 145 mmol/LNOMS HealthcareUrea nitrogen [Mass/Vol]51 mg/dLHigh7 - 25 mg/dLNOMT HealthcareNOMS HealthcareBasophils [#/volume] in Blood by Automated countOrdered By: Alexis Gilmore on 97-86-6230Pvdxwnfln (Bld) [#/Vol]0.1 10*3/uL Normal0.0-0.2FLakeHealth Beachwood Medical CenterComment on above:Result Comment: PERFORMED BY: [facility] [address] [facility] [place] [address] PATHOLOGIST [employer] OPERATOR ARCHIE MENDOZA M.D.Performed By: #### BMP, CBC #### [facility] [address] [place] [address] USABasophils/100 leukocytes in Blood by Automated count Ordered By: Alexis Gilmore on 33-56-8868Ovqjsnspq/100 WBC (Bld)0.8 %Normal. [facility] HospitalComment on above:Performed By: #### BMP, CBC #### [facility] [address] [place] [address] USACBC W Auto Differential panel (Bld)on 87-77-3086Mhkruaihh (Bld) [#/Vol]0.1 10*3/uL0.0 - 0.2 10*3/uLNOMS HealthcareBasophils/100 WBC Manual cnt (Syn fld)0.8 %.[facility] HospitalEosinophils (Bld) [#/Vol]0.3 10*3/uL0.0 - 0.45 10*3/uLNOMS HealthcareEosinophils/100 WBC Manual cnt (Syn fld)3.1 %.[facility] HospitalErythrocyte distribution width (RBC) [Ratio]14.5 %11.9 - 15.3 %[facility] HospitalHematocrit (Bld) [Volume fraction]32 %Low34.0 - 46.4 %[facility] Hemoglobin (Bld) [Mass/Vol]10.9 g/dLLow11.8 - 15.4 g/dLBarton County Memorial Hospital Interpretation and review of laboratory resultsAbnormCanonsburg Hospital Lymphocytes (Bld) [#/Vol]3.4 10*3/uL1.00 - 4.8 10*3/uLNOMT Healthcare Lymphocytes/100 WBC Manual cnt (Syn fld)35.4 %.[facility] HospitalH (RBC) [Entitic mass]28.6 pg24.7 - 34.3 pgHermann Area District HospitalHC (RBC) [Mass/Vol]34.1 g/dL32.0 - 35.0 g/dLHermann Area District HospitalV (RBC) [Entitic vol]84 fL80 - 100 fLBarton County Memorial Hospital Monocytes (Bld) [#/Vol]1 10*3/uLHigh0.0 - 0.8 10*3/uLBarton County Memorial Hospital Monocytes+Macrophages/100 WBC Manual cnt (Syn fld)10.1 %.[facility] Neutrophils (Bld) [#/Vol]4.8 10*3/uL1.8 - 7.7 10*3/uLNOMS Healthcare Neutrophils/100 WBC Manual cnt (Syn fld)50.6 %.NOMS HealthcareNRBC0.1 /100{WBC}0 - 0.5 /100{WBC}NOMS HealthcarePlatelet mean volume (Bld) [Entitic vol]9 fL6.3 - 10.7 fLNOMS HealthcarePlatelets (Bld) [#/Vol]215 10*3/uL150 - 450 10*3/uLNOMS HealthcareRBC LM.HPF (Urine sed) [#/Area]3.82 10*6/uL3.60 - 5.00 10*6/uLNOMS HealthcareWBC (Bld) [#/Vol]9.5 10*3/uL3.8 - 11.6 10*3/uLNOMS HealthcareWBC LM.HPF (Urine sed) [#/Area]9.5 [CFU]/mL3.8 - 11.6 [CFU]/mLNOMS HealthcareNOMS HealthcareCalcium [Mass/volume] in Serum or PlasmaOrdered By: Alexis Gilmore on 48-10-8335Ubqpizl [Mass/Vol]8.7 mg/dLNormal8.6-10.3FLakeHealth Beachwood Medical CenterComment on above:Result Comment: PERFORMED BY: [place] [address] PATHOLOGIST [employer] OPERATOR ARCHIE MENDOZA M.D.Performed By: #### BMP, CBC #### [facility] [address] [place] [address] USACarbon dioxide, total [Moles/volume] in Serum or Plasma Ordered By: Alexis Gilmore on 04-97-3279TL4 [Moles/Vol]23.8 mmol/LNormal 21.0-31.0[facility] HospitalComment on above:Performed By: #### BMP, CBC #### [facility] [address] [place] [address] USAChloride [Moles/volume] in Serum or PlasmaOrdered By: Alexis Gilmore on 74-90-3666Vuhfpwlr [Moles/Vol]100 mmol/ABooxbz13-021DebdjqbxnMercy Health Anderson HospitalComment on above:Performed By: #### BMP, CBC #### [facility] [address] [place] [address] USAComplete Blood Count Auto Diffon 62-47-2761Ptag Corpuscular HGB Conc34.1 g/pXYwkffk04.0-35.0The [facility] Physician GroupComment on above:Performed By: #### BMP, CBC #### [facility] [address] [place] [address] USANRBC%0.1 /100{WBC}Normal0-0.5The [facility] Comment on above:Performed By: #### BMP, CBC #### [place] [address] USAWhite Blood Count9.5 [CFU]/mLNormal3.8-11.6The [facility] Physician [facility] HospitalComment on above:Performed By: #### BMP, CBC #### [facility] [address] [place] [address] USACreatinine [Mass/volume] in Serum or PlasmaOrdered By: Alexis Gilmore on 78-11-0545Tmzjqyyxew [Mass/Vol]1.65 mg/dLHigh0.60-1.20 [facility] HospitalComment on above:Performed By: #### BMP, CBC #### [place] [address] USAECG 12 lead ECGon 75-41-0268DOZ 12 lead ECGSELECT MEDICAL [facility] [place] [address] Electrocardiograph Report Signed Patient: Diann Patel MR#: [id number] 525 : 1955 Acct:[id number] Age/Sex: 70 / F ADM Date: 07/19/25 Loc: PS Room: Type: [facility] Attending Dr: Alexis Gilmore DPM Ordering Provider: Alexis Gilmore DPM Date of Service: 07/19/2508/04/1402 ECG/ECG 12 lead ECG: pst Copies to: Test Reason : Blood Pressure : */* mmHG Vent. Rate : 61 BPM Atrial Rate : 61 BPM P-R Int : 156 ms QRS Dur : 84 ms QT Int : 434 ms P-R-T Axes : 75 47 49 degrees QTcB Int : 436 ms Normal sinus rhythm Normal ECG When compared with ECG of 15-Feb-2025 14:13, T wave inversion no longer evident in Inferior leads Nonspecific T wave abnormality, improved in Anterolateral leads Confirmed by Valente Ramirez ([id number]) on 07/20/2025 8:47:41 AM Referred By: Electronically Signed By: Valente Ramirez Transcribed By: MUS Signed By Valente Ramirez MD 07/20/25 0847[facility] Physician GroupEosinophils [#/volume] in Blood by Automated countOrdered By: Alexis Gilmore on 44-00-4197Sbqfhfbdako (Bld) [#/Vol]0.3 10*3/uLNormal0.0-0.45[facility] HospitalComment on above:Performed By: #### BMP, CBC #### [facility] [address] [place] [address] USAEosinophils/100 leukocytes in Blood by Automated count Ordered By: Alexis iGlmore on 56-47-0754Tlezhcsknvo/100 WBC (Bld)3.1 %Normal. [facility] HospitalComment on above:Performed By: #### BMP, CBC #### [facility] [address] [place] [address] USAErythrocyte distribution width [Ratio] by Automated count Ordered By: Alexis Gilmore on 63-39-6408Lpafjplftlk distribution width (RBC) [Ratio]14.5 %Dedgko00.9-15.3FLakeHealth Beachwood Medical CenterComment on above: Performed By: #### BMP, CBC #### [facility] [address] [place] [id number] USAErythrocytes [#/volume] in Blood by Automated countOrdered By: Alexis Gilmore on 39-58-9213BVR (Bld) [#/Vol]3.82 10*6/uLNormal3.60-5.00 [facility] HospitalComment on above:Performed By: #### BMP, CBC #### [facility] [address] [place] [id number] USAGlomerular filtration rate [Volume Rate/Area] in Serum, Plasma or Blood by CreatinineOrdered By: Alexis Gilmore on 57-28-4548Pfuxglnblb filtration rate [Volume Rate/Area] in Serum, Plasma or Blood by Lufzhnzifk94.025 mL/MinMercy Health Anderson HospitalGlucose [Mass/volume] in Serum or Plasma Ordered By: Alexis Gilmore on 63-62-4324Yoscejq [Mass/Vol]225 mg/dKBykk23-837 [facility] HospitalComment on above:ADA recommended reference rangeRandom Glucose Reference Range is dependent on time and content of last meal. Glucose of more than 200 mg/dL in a nonstressed, ambulatory subject supports the diagnosisof Diabetes Mellitus.Result Comment: Random Glucose Reference Range is dependent on time and content of last meal. Glucose of more than 200 mg/dL in a nonstressed, ambulatory subject supports the diagnosis of Diabetes Mellitus. ADA recommended reference rangePerformed By: #### BMP, CBC #### [place] [id number] USAHematocrit [Volume Fraction] of Blood by Automated count Ordered By: Alexis Gilmore on 14-86-3376Flfowwopfg (Bld) [Volume fraction]32.0 % Low34.0-46.4FLakeHealth Beachwood Medical CenterComment on above:Performed By: #### BMP, CBC #### [place] [id number] USAHemoglobin [Mass/volume] in BloodOrdered By: Alexis Gilmore on 82-53-0618Ycsvoeaqxs (Bld) [Mass/Vol]10.9 g/dLLow11.8-15.4FLakeHealth Beachwood Medical CenterComment on above:Performed By: #### BMP, CBC #### [place] [id number] USALeukocytes [#/volume] corrected for nucleated erythrocytes in Blood by Automated counOrdered By: Alexis Gilmore on 09-58-7427YHM corrected for nucl RBC Auto (Bld) [#/Vol]9.5 10*3/uL3.8-11.6FLakeHealth Beachwood Medical CenterLeukocytes [#/volume] in Blood by Automated countOrdered By: Alexis Gilmore on 97-54-2363NUD (Bld) [#/Vol]9.5 10*3/uLNormal3.8-11.6FLakeHealth Beachwood Medical CenterComment on above:Performed By: #### BMP, CBC #### [facility] [address] [place] [address] USALymphocytes [#/volume] in Blood by Automated countOrdered By: Alexis Gilmore on 42-00-9291Hufpvvtqqht (Bld) [#/Vol]3.4 10*3/uLNormal 1.00-4.8[facility] HospitalComment on above:Performed By: #### BMP, CBC #### [facility] [address] [place] [id number] USALymphocytes/100 leukocytes in Blood by Automated count Ordered By: Alexis Gilmore on 85-45-9479Yfbedibzlqx/100 WBC (Bld)35.4 %Normal. [facility] HospitalComment on above:Performed By: #### BMP, CBC #### [facility] [address] [place] [address] [facility] [Entitic mass] by Automated countOrdered By: Alexis Gilmore on 77-77-8909CPL (RBC) [Entitic mass]28.6 khKigwkn77.7-34.3FLakeHealth Beachwood Medical CenterComment on above:Performed By: #### BMP, CBC #### [facility] [address] [place] [id number] [facility] Auto (RBC) [Mass/Vol]Ordered By: Alexis Gilmore on 73-57-3209ANWE (RBC) [Mass/Vol]34.1 g/dL32.0-35.0Mer[facility] HospitalMCV [Entitic volume] by Automated countOrdered By: Alexis Gilmore on 78-12-9663YZL (RBC) [Entitic vol]84.0 eTIluiul20-896TnxkqhxrnMercy Health Anderson HospitalComment on above:Performed By: #### BMP, CBC #### [facility] [address] [place] [address] USAMonocytes [#/volume] in Blood by Automated countOrdered By: Alexis Gilmore on 76-41-7428Iwvfrenap (Bld) [#/Vol]1.0 10*3/uLHigh0.0-0.8 [facility] HospitalComment on above:Performed By: #### BMP, CBC #### [facility] [address] [place] [id number] USAMonocytes/100 leukocytes in Blood by Automated count Ordered By: Alexis Gilmore on 09-86-7954Nnuydipam/100 WBC (Bld)10.1 %Normal. [facility] HospitalComment on above:Performed By: #### BMP, CBC #### [place] [address] USANeutrophils [#/volume] in Blood by Automated countOrdered By: Alexis Gilmore on 90-06-4725Pziuuxgcupm (Bld) [#/Vol]4.8 10*3/uLNormal 1.8-7.7FLakeHealth Beachwood Medical CenterComment on above:Performed By: #### BMP, CBC #### [facility] [address] [place], [place] [address] USANeutrophils/100 leukocytes in Blood by Automated count Ordered By: Alexis Gilmore on 62-31-2049Fogpqoytypr/100 WBC (Bld)50.6 %Normal. [facility] HospitalComment on above:Performed By: #### BMP, CBC #### [facility] [address] [place], [place] [address] USANo Panel InformationOrdered By: Alexis Gilmore on 39-04-1519Lhwunahe Creatinine Clearance (ChemN/AFLakeHealth Beachwood Medical CenterNucleated erythrocytes [Presence] in Blood by Automated countOrdered By: Alexis Gilmore on 71-44-6832Prwyfdfqo RBC Auto Ql (Bld)0.1 /100{WBC}0-0.5 [facility] Anderson HospitalPlatelet mean volume [Entitic volume] in Blood by Automated countOrdered By: Alexis Gilmore on 13-66-6301Grklsvlv mean volume (Bld) [Entitic vol]9.0 fLNormal6.3-10.7FLakeHealth Beachwood Medical CenterComment on above:Performed By: #### BMP, CBC #### [facility] [address] [place] [address] USAPlatelets [#/volume] in Blood by Automated countOrdered By: Alexis Gilmore on 50-41-2987Skdxhgkus (Bld) [#/Vol]215 10*3/sMHrtlmk485-136 [facility] HospitalComment on above:Performed By: #### BMP, CBC #### [facility] [address] [place] [address] USAPotassium [Moles/volume] in Serum or PlasmaOrdered By: Alexis Gilmore on 54-99-4142Zawpuikre [Moles/Vol]5.1 mmol/LNormal3.5-5.1 [facility] HospitalComment on above:Performed By: #### BMP, CBC #### [facility] [address] [place] [address] USASerum or plasma anion gap determinationOrdered By: Alexis Gilmore on 92-30-9535Wefhn gap [Moles/Vol]14.3 mmol/LNormal6.0-15.0 [facility] HospitalComment on above:Performed By: #### BMP, CBC #### [facility] [address] [place] [address] USASodium [Moles/volume] in Serum or PlasmaOrdered By: Alexis Gilmore on 37-52-6177Qyigrz [Moles/Vol]133 mmol/UUpj705-666VkrhuvacfMercy Health Anderson HospitalComment on above:Performed By: #### BMP, CBC #### [facility] [address] [place] [id number] USAUrea nitrogen [Mass/volume] in Serum or PlasmaOrdered By: Alexis Gilmore on 10-57-7973Zdlb nitrogen [Mass/Vol]51 mg/dLHigh7-25Mer[facility] HospitalComment on above:Performed By: #### BMP, CBC #### [place] [address] USAPATHOLOGY REQUEST FOR LAB CORPon 63-99-3196UXKNBTVBU REQUEST FOR LAB [facility] HospitalComment on above:See report. Scanned copy available in EMR.GI SPECIMENSt. Joseph's Regional Medical Center– Milwaukeeillary blood glucose measurement by glucometer (mass/volume)Ordered By: Dale Fox on 06-09-2025 Glucose [Mass/Vol]269 mg/dLNoAdams County HospitalComment on above:Random Glucose Reference Range is dependent on time and content of last meal. Glucose of more than 200 mg/dL in a nonstressed, ambulatory subject supports the diagnosis of Diabetes Mellitus.Result Comment: Random Glucose Reference Range is dependent on time and content of last meal. Glucose of more than 200 mg/dL in a nonstressed, ambulatory subject supports the diagnosis of Diabetes Mellitus.Performed By: #### GLULS #### Point of Care testing ,GLUCOSE POCT GLUCOMETERSon 40-80-2196KKEKNDK1Zqa0: Cleaned MeterBarton County Memorial Hospital Glucose [Mass/Vol]269 mg/dLBarton County Memorial HospitalComment on above:Random Glucose Reference Range is dependent on time and content of last meal. Glucose of more than 200 mg/dL in a nonstressed, ambulatory subject supports the diagnosis of Diabetes Mellitus. NOMS HealthcareGlucose Poct Glucometerson 69-71-6323Rqphpmk5Ejf7: Cleaned Meter NormalThe [facility] Physician GroupComment on above:Result Comment: PERFORMED BY: [place] [address] PATHOLOGIST [employer] OPERATOR ARCHIE MENDOZA M.D.Performed By: #### GLULS #### Point of Care testing ,No Panel InformationOrdered By: Dale Fox on 32-63-3817Wqkmtogqrdurc Pathology TestSee [facility] Surgical HospitalComment on above:See report. Scanned copy available in EMR.Bedside Glucose CommentGlu2: cleaned meter [facility] HospitalPathology Request for Lab Corpon 06-09-2025 Pathology Request for Lab [facility] Physician GroupComment on above:Order Comment: GI SPECIMENResult Comment: See report. Scanned copy available in EMR. PERFORMED BY: [facility] [place] [id number] PATHOLOGIST C[employer] OPERATOR ARCHIE MENDOZA M.D.Performed By: #### PATH TO [facility] #### [place] [id number] USAOffice Visiton 42-05-5778Eyzxyf-up [id number] Diann Patel 1955 F Date Provider Department Center 05/30/2025 VALENTE BALTAZAR CONCEPCIÓN [place] Family History Problem Relation Age of Onset Diabetes Mother Cancer Mother Heart disease Father Alcohol abuse Brother Diabetes Brother Family Status - Relation Status Age at Mother Father Sister Brother Level of Service:04181 [place] OFFICE/OUTPATIENT ESTABLISHED MOD [facility]DM [facility]Office [facility] 64-79-8300Vjorzt-up visit [id number] Diann Patel 1955 F Date Provider Department Center 04/26/2025 76538-HAUJJMWSLGET [facility] Medical Pavi Family History Problem Relation Age of Onset Diabetes Mother Cancer Mother Heart disease Father Alcohol abuse Brother Diabetes Brother Family Status - Relation Status Age at Mother Father Sister Brother Level of Service:41948 [place] OFFICE/OUTPATIENT NEW MODERATE MDM 45 MINUTES Reason for Visit and Comments: New Patient [632] Anemia [771012]NormalParkview HealthHbA1c (Bld) [Mass fraction]on 71-49-1109Lsfbqzfzskwhps and review of laboratory resultsAbnormal [facility] HospitalLaboratory - Hematology and Cell countson 05-13-2627HnJ3e (Bld) [Mass fraction]7.8 %[place] [address] Regarding carotid duplex result from 03/07/2025: MD Maria Antonia Pisano MA Carotid ultrasound showed stable disease. Follow up as planned. Patient informed.NormalParkview HealthMammography report Ordered By: Manjula Flannery on 13-00-8282Zruqbvqheb imaging studyUNIVERSITY H[facility]PITALS [facility] [address] [place] [address] [address] [place] [address] Mammography Report Signed Patient: Diann Patel MR#: [id number] : 1955 Acct:[id number] Age/Sex: 69 / F Adm Date: 5 Loc: IN Room: Type: [facility] Attending Dr: Champ Bell II, MD Ordering Provider: Champ Bell II, MD Date of Service: 03/10/25 Procedure(s): MM special view RT w/CAD; US breast RT limited Accession Number(s): ([id number]) MM/MM special view RT w/CAD: ABN MAMM ([id number]) US/US breast RT limited: R92.8 Copies to: Champ Bell II, MD~ CLINICAL DATA: Follow-up nodular asymmetry. RIGHT DIAGNOSTIC MAMMOGRAMS - FULL FIELD DIGITAL WITH TOMOSYNTHESIS AND CAD Tomosynthesis true lateral and spot compression craniocaudal and mediolateral oblique views of the right breast were obtained using low-dose digital technique. Comparison is made to prior studies from August 23, 2020 and March 03, 2025. This examination was reviewed with the aid of CAD. There are scattered fibroglandular densities. There is redemonstration of a slightly lobulated 8 mmnodular asymmetry at the central lateral right breast 4-5 cm from the nipple. In retrospect, this is also felt to have been present in 2019 and is not significantly changed. Benign calcifications areseen. There areno additional masses, typically malignant calcifications or architectural distortion. LIMITED RIGHT BREAST ULTRASOUND Real-time ultrasound evaluation at the central lateral breast was performed. At the 9:00 position, 4 cm from the nipple there is and elongate, somewhat tubular hypoechoic area measuring 8 x 3 x 5 mm.The location and appearance correlates with the mammographic finding. The etiology is uncertain though since it appearssimilar mammographically to the 2019 study, it is probably benign. Cursory evaluation of the right axilla was also performed since patient reportedpalpable lumps. There are multiple axillary lymph nodes with fatty lesly. The largest measure 23 x 10 x 17 mm, 22 x 12 x10 mm and 21 x 15 x 15 mm. The axillary lymph nodes which were included on mammogram show no changebetween 2019 and 2024. MM/MM special view RT w/CAD IMPRESSION: PROBABLY BENIGN NODULAR ASYMMETRY AT THE CENTRAL LATERAL RIGHT BREAST. ULTRASOUND FOLLOW-UP IN 6 MONTHS IS RECOMMENDED TO ASSURE STABILITY. BENIGN-APPEARING AXILLARY LYMPH NODES WITH FATTY LESLY. RESULT CODE: 3 Probably Benign Finding Short Term Follow-Up DENSITY CODE: 2 (approximately 25-50% glandular) FOLLOW UP: 6M The false-negative rate of mammography is approximately 10-percent. Management of a palpable abnormality must be based on clinical grounds. Patient was entered into a reminder system with a target due date for the next mammogram. Impression dictated by: Manjula Flannery M.D. 03/10/2025 5:08 PM Dictation Location: [facility] Dictated By: Manjula Flannery MD 03/10/25 1511 Signed By: 03/10/25 0232 [facility] Work Phone: us breast RT limitedon 06-30-8548MF breast RT limited [facility] [address] [place] [address] Mammography Report Signed Patient: Diann Patel MR#: [id number] 525 : 1955 Acct:[id number] Age/Sex: 69 / F Adm Date: 03/10/25 Loc: IN Room: Type: [facility] Attending Dr: Champ Bell II, MD Ordering Provider: Champ Bell II, MD Date of Service: 03/10/25 Procedure(s): MM special view RT w/CAD; US breast RT limited Accession Number(s): ([id number]) MM/MM special view RT w/CAD: ABN MAMM ([id number]) US/US breast RT limited: R92.8 Copies to: Champ Bell II, MD CLINICAL DATA: Follow-up nodular asymmetry. RIGHT DIAGNOSTIC MAMMOGRAMS - FULL FIELD DIGITAL WITH TOMOSYNTHESIS AND CAD Tomosynthesis true lateral and spot compression craniocaudal and mediolateral oblique views of the right breast were obtained using low-dose digital technique. Comparison is made to prior studies from August 23, 2020 and March 03, 2025. This examination was reviewed with the aid of CAD. There are scattered fibroglandular densities. There is redemonstration of a slightly lobulated 8 mm nodular asymmetry at the central lateral right breast 4-5 cm from the nipple. In retrospect, this is also felt to have been present in 2020 and is not significantly changed. Benign calcifications are seen. There are no additional masses, typically malignant calcifications or architectural distortion. LIMITED RIGHT BREAST ULTRASOUND Real-time ultrasound evaluation at the central lateral breast was performed. At the 9:00 position, 4 cm from the nipple there is and elongate, somewhat tubular hypoechoic area measuring 8 x 3 x 5 mm. The location and appearance correlates with the mammographic finding. The etiology is uncertain though since it appears similar mammographically to the 2020 study, it is probably benign. Cursory evaluation of the right axilla was also performed since patient reported palpable lumps. There are multiple axillary lymph nodes with fatty lesly. The largest measure 23 x 10 x 17 mm, 22 x 12 x 10 mm and 21 x 15 x 15 mm. The axillary lymph nodes which were included on mammogram show no change between 2019 and 2024. MM/MM special view RT w/CAD IMPRESSION: PROBABLY BENIGN NODULAR ASYMMETRY AT THE CENTRAL LATERAL RIGHT BREAST. ULTRASOUND FOLLOW-UP IN 6 MONTHS IS RECOMMENDED TO ASSURE STABILITY. BENIGN-APPEARING AXILLARY LYMPH NODES WITH FATTY LESLY. RESULT CODE: 3 Probably Benign Finding Short Term Follow-Up DENSITY CODE: 2 (approximately 25-50% glandular) FOLLOW UP: 6M The false-negative rate of mammography is approximately 10-percent. Management of a palpable abnormality must be based on clinical grounds. Patient was entered into a reminder system with a target due date for the next mammogram. Impression dictated by: Manjula Flannery M.D. 03/10/2025 5:08 PM Dictation Location: [facility] Dictated By: Manjula Flannery MD 03/10/25 1514 Signed By: 03/10/[address] [place] [address] Physician Group TOMOSYNTHESIS SCREENING BIon [id number] [address] Mammography Report Signed Patient: DIANN PATEL MR#: [id number] : 1955 Acct:[id number] Age/Sex: 69 / F ADM Date: 03/03/25 Loc: MAMMO Attending Dr: CHAMP BELL Ordering Physician: CHAMP BELL Results: Date of Service: 03/03/25 Follow Up: Procedure(s): MM tomosynthesis screening BI Accession Number(s): [id number] cc: CHAMP BELL Patient Name: DIANN PATEL MR#: [id number] : 1955 Exam Date: 03/03/2025 Ordering Doctor: DR CHAMP BELL M.D. RADIOLOGY REPORT PROCEDURE: MM TOMOSYNTHESIS SCREENING BI COMPARISON: MG MAMM SCREEN LIZETH W CAD, 08/23/2020. MG MAMM SCREEN LIZETH W CAD, 01/18/2019. MG MAMM SCREEN LIZETH W CAD, 10/17/2017. MG MAMM LIZETH SCRN W CAD DIG, 06/12/2015. INDICATIONS: screening for malignant neoplasm of breast Calculator Name NCI Breast Cancer Risk Assessment Tool 5 Year Breast Cancer Risk 3.10% Lifetime Breast Cancer Risk 8.90% Personal Breast Cancer No Personal Ovarian Cancer No Treatments None Family Cancers Mother with breast cancer at age 50; Mother with ovarian cancer at age 50. LOCATION: [facility] BREAST COMPOSITION: There are scattered areas of fibroglandular density. FINDINGS: DIAGNOSTIC CATEGORY 0--INCOMPLETE: NEED ADDITIONAL IMAGING EVALUATION. LEFT BREAST: No significant suspicious finding. RIGHT BREAST: Focal asymmetry upper-outer quadrant right breast, anterior depth. RECOMMENDATIONS: ADDITIONAL MAMMOGRAPHIC VIEWS REQUIRED: RIGHT BREAST - spot-compression/true lateral views, possible ultrasound are recommended. PLEASE NOTE: A NORMAL MAMMOGRAM DOES NOT EXCLUDE THE POSSIBILITY OF BREAST CANCER. A CLINICALLY SUSPICIOUS PALPABLE LUMP SHOULD BE BIOPSIED. Dictated by: Julio Cesar Erwin DO on 03/03/2025 at 16:31 Approved by: Julio Cesar Erwin DO on 03/03/2025 at 16:34 Dictated By: Julio Cesar Erwin M.D. Signed By: 03/03/25 1635 DD/ 1634 TD/TT: Producer Arborist Manager:TBHRadiology, Radiologist, MD - 03/03/2025 [place] [address] Mammography Report Signed Patient: DIANN PATEL MR#: [id number] : 1955 Acct:[id number] Age/Sex: 69 / F ADM Date: 03/03/25 Loc: MAMMO Attending Dr: CHAMP BELL Ordering Physician: CHAMP BELL Results: Date of Service: 03/03/25 Follow Up: Procedure(s): MM tomosynthesis screening BI Accession Number(s): [id number] cc: BELLCHRYSTALCHAMP Patient Name: DIANN PATEL MR#: [id number] : 1955 Exam Date: 03/03/2025 Ordering Doctor: DR CHAMP BELL M.D. RADIOLOGY REPORT PROCEDURE: MM TOMOSYNTHESIS SCREENING BI COMPARISON: MG MAMM SCREEN LIZETH W CAD, 08/23/2020. MG MAMM SCREEN LIZETH W CAD, 01/18/2019. MG MAMM SCREEN LIZETH W CAD, 10/17/2017. MG MAMM LIZETH SCRN W CAD DIG, 06/12/2015. INDICATIONS: screening for malignant neoplasm of breast Calculator Name NCI Breast Cancer Risk Assessment Tool 5 Year Breast Cancer Risk 3.10% Lifetime Breast Cancer Risk 8.90% Personal Breast Cancer No Personal Ovarian Cancer No Treatments None Family Cancers Mother with breast cancer at age 50; Mother with ovarian cancer at age 50. LOCATION: [facility] BREAST COMPOSITION: There are scattered areas of fibroglandular density. FINDINGS: DIAGNOSTIC CATEGORY 0--INCOMPLETE: NEED ADDITIONAL IMAGING EVALUATION. LEFT BREAST: No significant suspicious finding. RIGHT BREAST: Focal asymmetry upper-outer quadrant right breast, anterior depth. RECOMMENDATIONS: ADDITIONAL MAMMOGRAPHIC VIEWS REQUIRED: RIGHT BREAST - spot-compression/true lateral views, possible ultrasound are recommended. PLEASE NOTE: A NORMAL MAMMOGRAM DOES NOT EXCLUDE THE POSSIBILITY OF BREAST CANCER. A CLINICALLY SUSPICIOUS PALPABLE LUMP SHOULD BE BIOPSIED. Dictated by: Julio Cesar Erwin DO on 03/03/2025 at 16:31 Approved by: Julio Cesar Erwin DO on 03/03/2025 at 16:34 Dictated By: Julio Cesar Erwin M.D. Signed By: 03/03/25 163 DD/ 33 TD/TT: Producer Arborist Manager: PRIYANKA HealthcareRadiology Study observation (narrative)PRIYANKA [facility] TOMOSYNTHESIS SCREENING BIOrdered By: Radiologist Radiology on [id number] Funding Options Work Phone: Office Visiton [phone]-up [id number] Diann Patel 1955 Provider Department Center 03/02/2025 VALENTE BALTAZAR CONCEPCIÓN Edin Norma Family History Problem Relation Age of Onset Diabetes Mother Cancer Mother Heart disease Father Alcohol abuse Brother Diabetes Brother Family Status - Relation Status Age at Mother Father Sister Brother Level of Service:97655 [place] OFFICE/OUTPATIENT ESTABLISHED MOD MDM 30 [facility]36on [id number] date: 02/22/25 Call date: 02/23/25 Spoke with: patient HF Follow-up date: 02/25/25 Med reconciliation completed: pt declined Questions/Concerns: Pt denied any SOB or CP. Pt declined to review home meds stating she just reviewed them with someone from her PCP office. Pt is monitoring daily weights and is aware of her follow up telemed visit. No questions or concerns at this time.[facility] CenterDocumentationon 02-23-2025 [id number] DakotaawildaPancho arringtonjose Car 1955 Provider Department Center 02/23/2025 DIPAK YEBOAH C VASC LAB ME HeartVAS Family History Problem Relation Age of Onset Diabetes Mother Cancer Mother Heart disease Father Alcohol abuse Brother Diabetes Brother Family Status - Relation Status Age at Mother Father Brother Reason for Visit and Comments: HF inpatient satisfaction survey sent. [Other][facility] CenterTelephoneon [id number] Diann Patel Josep 1955 Provider Department Center 02/23/2025 DIPAK YEBOAH HVC VASC LAB ME HeartVAS Family History Problem Relation Age of Onset Diabetes Mother Cancer Mother Heart disease Father Alcohol abuse Brother Diabetes Brother Family Status - Relation Status Age at Mother Father Brother Reason for Visit and Comments: HF post discharge call. [Other][phone] went bedside and talked with patient about discharge planing and how patient qualified for 2 L nc at night. Patient stated she has no preference of home health care company and is agreeable to for speech writer to set home oxygen through [employer]. Lawn Service Worker called and talked with Timothy who is with [employer]. Lawn Service Worker was told to fax over clinicals and to tell patient to call when she leaves the hospital. Lawn Service Worker faxed over Clinicals to [facility] at [phone]. Lawn Service Worker went bedside and notified/educated the patient on need to call health care solutions as soon as she leaves the hospital. Lawn Service Worker provided [employer] phone number to patient and placed it on the AVS. Patient stated she understands and has no other questions at this time.[facility]30The patient is Moderately Unstable - Medium risk of patient condition declining or worsening The patient's goals for the shift include rest The clinical goals for the shift include vss; pain control Problem: Pain - Adult Goal: Verbalizes/displays adequate comfort level or baseline comfort level Outcome: Progressing Problem: Discharge Planning Goal: Discharge to home or other facility with appropriate resources Outcome: Progressing Flowsheets (Taken 02/22/2025749) Discharge to home or other facility with appropriate resources: Identify barriers to discharge with patient and caregiver Problem: Chronic Conditions and Co-morbidities Goal: Patient's chronic conditions and co-morbidity symptoms are monitored and maintained or improved Outcome: Progressing Flowsheets (Taken 02/22/2025749) Care Plan - Patient's Chronic Conditions and Co-Morbidity Symptoms are Monitored and Maintained or Improved: Monitor and assess patient's chronic conditions and comorbid symptoms for stability, deterioration, or improvement Problem: Respiratory - Adult Goal: Achieves optimal ventilation and oxygenation Outcome: Progressing Flowsheets (Taken 02/22/2025749) Achieves optimal ventilation and oxygenation: Assess for changes in respiratory status Problem: Cardiovascular - Adult Goal: Maintains optimal cardiac output and hemodynamic stability Recent Flowsheet Documentation Taken 02/22/2025749 by Machelle Plaza RN Maintains optimal cardiac output and hemodynamic stability: Monitor blood pressure and heart rate Goal: Absence of cardiac dysrhythmias or at baseline Recent Flowsheet Documentation Taken 02/22/2025749 by Machelle Plaza RN Absence of cardiac dysrhythmias or at baseline: Monitor cardiac rate and rhythm Problem: Gastrointestinal - Adult Goal: Minimal or absence of nausea and vomiting Recent Flowsheet Documentation Taken 02/22/2025749 by Machelle Plaza RN Minimal or absence of nausea and vomiting: Administer IV fluids as ordered to ensure adequate hydration Goal: Maintains or returns to baseline bowel function Recent Flowsheet Documentation Taken 02/22/2025749 by Machelle Plaza RN Maintains or returns to baseline bowel function: Assess bowel function Goal: Maintains adequate nutritional intake Recent Flowsheet Documentation Taken 02/22/2025749 by Machelle Plaza RN Maintains adequate nutritional intake: Monitor percentage of each meal consumed Problem: Genitourinary - Adult Goal: Absence of urinary retention Recent Flowsheet Documentation Taken 02/22/2025749 by Machelle Plaza RN Absence of urinary retention: Assess patient???s ability to void and empty bladderNormalUniversTrinity Health System West CampusBASIC METABOLIC PANELon 48-99-9896Cauxq gap [Moles/Vol]12 mmol/LNormal7-20UnMiddletown HospitalComment on above:Performed By: #### [id number] #### [facility] ([facility]) [address] [place], [place] [address]Vhnjhgk [Mass/Vol]9.3 mg/dLNormal8.6-10.3UnMiddletown HospitalComment on above:Performed By: #### [id number] #### [facility] ([facility]) [address] [place], [place] [address]Ehvpallc [Moles/Vol]98 mmol/VGkmfpq01-108FylocqxkolMiddletown HospitalComment on above:Performed By: #### [id number] #### [facility] ([facility]) [address] [place], [place] [address]MS7 [Moles/Vol]30 mmol/JCupptz00-92ZjwzyoavvvMiddletown HospitalComment on above:Performed By: #### [id number] #### [facility] ([facility]) [address] [place], [place] [address]Fyauqfyqpu [Mass/Vol]1.06 mg/dLNormal0.60-1.20UnMiddletown HospitalComment on above:Performed By: #### [id number] #### [facility] ([facility]) [address] [place], [place] [address]PEHJCSPZOU FILTRATION RATE ML/MIN/1.73 SQ M.TKUQNGFUW27.5 mL/min/1.73m*2Low>60.0UnMiddletown HospitalComment on above:Result Comment: [facility]???s estimated glomerular filtration rate (eGFR) will no [...] potential consequences that do not disproportionately affect anyone group of individuals.Performed By: #### [id number] #### [facility] ([facility]) [address] [place], [place] [address]Kzuenjl [Mass/Vol]162 mg/dPYsoz61-818SiolyqpfnrMiddletown HospitalComment on above:Performed By: #### [id number] #### [facility] ([facility]) [address] [place], [place] [address]Iosfozsgi [Moles/Vol]4.1 mmol/LNormal3.5-5.1UnMiddletown HospitalComment on above:Performed By: #### [id number] #### [facility] ([facility]) [address] [place], [place] [address]Sgeqre [Moles/Vol]136 mmol/LOoltnt629-229BndsrvddbgMiddletown HospitalComment on above:Performed By: #### [id number] #### [facility] ([facility]) [address] [place], [place] [address]Rpsm nitrogen [Mass/Vol]45 mg/dLHigh7-25UnMiddletown HospitalComment on above:Performed By: #### [id number] #### [facility] ([facility]) [address] [place], [place] [address]ZUBU NITROGEN/CREATININE (MASS RATIO) IN SER/PLAS42.5Normal [facility] HealthComment on above:Performed By: #### [id number] #### [facility] ([facility]) [address] [place], [place] [address]QNCKKXEnn 36-73-5900GMIUYJVCiugv study ordered for OPNormal [facility] HealthCONSULTdischarge planning: to return Home with family Patient came to this admission from their private residence in the community, where they live with family - most recent Occupational Therapy stating Patient is able to return to prior living environment - most recent Physical Therapy stating Patient is able to return to prior living environment - LDAs tab listing open wound pretibial left; no other open wounds - oxygen flowsheet listing Patient on Room Air at this time - follow up with [facility] on AVSNormalUniversTrinity Health System West CampusDocumentationon [id number] DenilsonPancho arringtonjose Car 1955 F Date Provider Department Center 02/22/2025 MARIA VICTORIA MEDINA IMED [facility] C Family History Problem Relation Age of Onset Diabetes Mother Cancer Mother Heart disease Father Alcohol abuse Brother Diabetes Brother Family Status - Relation Status Age at Mother Father Brother Reason for Visit and Comments: iMEDS Bedside Medication Delivery and Counseling [Other]NormalUnMiddletown HospitalNURSNOTEon 92-63-0930KUSPGDNNJruveohje trend reviewed and patient qualifies for 2 liters nocturnal oxygen per nasal cannula per minute d/t CHF. Patient is aware of the benefit and need of oxygen.NormalUnMiddletown HospitalPOCT GLUCOSE METER UNSOLICITED RESULTSon 97-25-2086Nkfaltq [Mass/Vol]261 mg/dLKgem17-643ZfoslflbjcMiddletown HospitalComment on above:Order Comment: Waived Testing in the ED is performed under the ED CLIA certificate #[id number].Result Comment: [email or web address] Performed By: #### [id number] ####[facility] ([facility])[address] [place], [place] [address]Ecrgpsh [Mass/Vol]169 mg/hEEvwo48-955ZwtdxaaaeyMiddletown HospitalComment on above:Order Comment: Waived Testing in the ED is performed under the ED CLIA certificate #[id number].Result Comment: [email or web address] Performed By: #### [id number] #### [facility] ([facility]) [address] [place], [place] [address]wl [id number] patient is Moderately Unstable - Medium risk of patient condition declining or worsening The patient's goals for the shift include rest The clinical goals for the shift include vss Problem: Pain - Adult Goal: Verbalizes/displays adequate comfort level or baseline comfort level Outcome: Progressing Flowsheets (Taken 02/21/2025857) Verbalizes/displays adequate comfort level or baseline comfort level: Encourage patient to monitor pain and request assistance Problem: Discharge Planning Goal: Discharge to home or other facility with appropriate resources Outcome: Progressing Flowsheets (Taken 02/21/2025857) Discharge to home or other facility with appropriate resources: Identify barriers to discharge with patient and caregiver Arrange for needed discharge resources and transportation as appropriate Identify discharge learning needs (meds, wound care, etc) Arrange for interpreters to assist at discharge as needed Refer to discharge planning if patient needs post-hospital services based on physician order or complex needs related to functional status, cognitive ability or social support system Problem: Chronic Conditions and Co-morbidities Goal: Patient's chronic conditions and co-morbidity symptoms are monitored and maintained or improved Outcome: Progressing Flowsheets (Taken 02/21/2025857) Care Plan - Patient's Chronic Conditions and Co-Morbidity Symptoms are Monitored and Maintained or Improved: Monitor and assess patient's chronic conditions and comorbid symptoms for stability, deterioration, or improvement Collaborate with multidisciplinary team to address chronic and comorbid conditions and prevent exacerbation or deterioration Update acute care plan with appropriate goals if chronic or comorbid symptoms are exacerbated and prevent overall improvement and discharge Problem: Respiratory - Adult Goal: Achieves optimal ventilation and oxygenation Outcome: Progressing Flowsheets (Taken 02/21/2025857) Achieves optimal ventilation and oxygenation: Assess for changes in respiratory status Assess for changes in mentation and behavior Initiate smoking cessation protocol as indicated Position to facilitate oxygenation and minimize respiratory effort Respiratory therapy support as indicated Encourage broncho-pulmonary hygiene including cough, deep breathe, incentive spirometry Problem: Cardiovascular - Adult Goal: Maintains optimal cardiac output and hemodynamic stability Recent Flowsheet Documentation Taken 02/21/2025857 by Machelle Plaza RN Maintains optimal cardiac output and hemodynamic stability: Monitor blood pressure and heart rate Assess for signs of decreased cardiac output Administer fluid and/or volume expanders as ordered Monitor urine output and notify Licensed Independent Practitioner for values outside of normal range Administer vasoactive medications as ordered Goal: Absence of cardiac dysrhythmias or at baseline Recent Flowsheet Documentation Taken 02/21/2025 0858 by Machelle Plaza RN Absence of cardiac dysrhythmias or at baseline: Monitor cardiac rate and rhythm Administer antiarrhythmia medication and electrolyte replacement as ordered Assess for signs of decreased cardiac outputNoalUniCincinnati Shriners Hospital30Daily Case Management Update Multidisciplinary rounds have been completed. Barriers to Discharge: Patient is s/p cath on 02/18. Plan to follow up with cardiology outpatient for possible watchman. Continue diuresis, wean off oxygen as tolerated, and monitor Hgb. Plan for patient to under go nocturnal trend tonight, and to follow up on echo results. Discharge dispo: plan at this time is for patient to discharge home when medically ready. Diet: Dietary Orders (From admission, onward) Start Ordered 02/21/25 0741 Special Kitchen Request Once Comments: Please send milk, 2 cups of coffee, oatmeal, wheat toast with butter, fruit cup. Thanks! 02/21/25 0741 02/18/25 2339 Regular Diet Heart Healthy/HTN, CABG,Stroke, (2gNA, low fat, low cholesterol) Diet effective now Question Answer Comment Room Service? Yes Fat restriction: Heart Healthy/HTN, CABG,Stroke, (2gNA, low fat, low cholesterol) 02/18/25 2338 Physician Expected Discharge Date: 02/20/2025 Discharge Delays: PT Six Click Score: 18 OT Six Click Score: 21 PT Recommendations: Patient is able to return to prior living environment OT Recommendations: Patient is able to return to prior living environment New Consults: Ancillary Consults (From admission, onward) Start Ordered 02/21/25 1255 Inpatient consult to Social Work Once Provider: (Not yet assigned) Question Answer Comment Select all services needed for the patient Other Other: acute heart failure 02/21/25 1254 Therapy Orders (From admission, onward) Start Ordered 02/21/25 0834 OT eval and treat Until therapy completed Question: Reason for OT? Answer: weakness 02/21/25 0833 02/21/25 0833 PT eval and treat Until therapy completed Question: Reason for PT? Answer: Weakness 02/21/25 0833NormalUniversTrinity Health System West Campus30The patient is Moderately Stable - Low risk of patient condition declining or worsening The patient's goals for the shift include REST The clinical goals for the shift include VSS Problem: Pain - Adult Goal: Verbalizes/displays adequate comfort level or baseline comfort level Outcome: Progressing Flowsheets (Taken 02/20/20252029) Verbalizes/displays adequate comfort level or baseline comfort level: Encourage patient to monitor pain and request assistance Assess pain using appropriate pain scale Administer analgesics based on type and severity of pain and evaluate response Implement non-pharmacological measures as appropriate and evaluate response Notify Licensed Independent Practitioner if interventions unsuccessful or patient reports new pain Consider cultural and social influences on pain and pain management Problem: Safety - Adult Goal: Free from fall injury Outcome: Progressing Flowsheets (Taken 02/20/20252029) Free from fall injury: Assess patient frequently for physical needs Identify cognitive and physical deficits and behaviors that affect risk of falls Educate patient/family on patient safety, including physical limitations Modify environment to reduce risk of injury Consider OT/PT consult to assist with strengthening/mobility Problem: Discharge Planning Goal: Discharge to home or other facility with appropriate resources Outcome: Progressing Flowsheets (Taken 02/20/20252029) Discharge to home or other facility with appropriate resources: Identify barriers to discharge with patient and caregiver Arrange for needed discharge resources and transportation as appropriate Identify discharge learning needs (meds, wound care, etc) Arrange for interpreters to assist at discharge as needed Refer to discharge planning if patient needs post-hospital services based on physician order or complex needs related to functional status, cognitive ability or social support systemNormalUniversTrinity Health System West CampusBASIC METABOLIC PANELon 32-60-9717Fqzjp gap [Moles/Vol]11 mmol/LNormal7-20UnMiddletown HospitalComment on above:Performed By: #### [id number] ####[facility] ([facility])[address] [place], [place] [address]Lcewdgy [Mass/Vol]9.2 mg/dLNormal 8.6-10.3UnMiddletown HospitalComment on above:Performed By: #### [id number] ####[facility] ([facility])[address] [place] [address]Rrhoodgm [Moles/Vol]100 mmol/ADduaxq55-207HqgbxvcoofMiddletown HospitalComment on above:Performed By: #### [id number] ####[facility] ([facility])[address] [place] [address]NE8 [Moles/Vol]29 mmol/BFprfin70-16QbpcrjpzzwMiddletown HospitalComment on above:Performed By: #### [id number] ####[facility] ([facility])[address] [place] [address]Qljhyntedx [Mass/Vol]0.94 mg/dLNormal 0.60-1.20UnMiddletown HospitalComment on above:Performed By: #### [id number] ####[facility] ([facility])[address] [place] [address]CXOEOJLPVJ FILTRATION RATE ML/MIN/1.73 SQ M.MWQLLYTIJ60.3 mL/min/1.73m*2Normal>60.0 [facility]Comment on above:Result Comment: The [facility]???s estimated glomerular filtration rate (eG FR) will no longer include consideration of race [...] potential consequences that do not disproportionately affect anyone group of individuals. Performed By: #### [id number] ####[facility] ([facility])[address] [place] [address]Yunzkgf [Mass/Vol]220 mg/cFRxcy54-062AxrxnrtughMiddletown HospitalComment on above:Performed By: #### [id number] ####[facility] ([facility])[address] [place] [address]Wzflazukq [Moles/Vol]4.0 mmol/LNormal 3.5-5.1UnMiddletown HospitalComment on above:Performed By: #### [id number] ####[facility] ([facility] [place], [place] [address]Orxkhx [Moles/Vol]136 mmol/AYwbxfo300-958WgrccijxezMiddletown HospitalComment on above:Performed By: #### [id number] ####[facility] ([facility] [place], [place] [address]Cbmw nitrogen [Mass/Vol]42 mg/dLHigh7-25UnMiddletown HospitalComment on above:Performed By: #### [id number] ####[facility] ([facility])[address] [place], [place] [address]NGRH NITROGEN/CREATININE (MASS RATIO) IN SER/PLAS44.7NormalUniversTrinity Health System West CampusComment on above: Performed By: #### [id number] ####[facility] ([facility])[address] [place], [place] [address]JPMqz 63-92-2750Xpzitlnhrhc distribution width (RBC) [Ratio]15.3 %High 11.5-15.0UnMiddletown HospitalComment on above:Performed By: #### [id number] ####[facility] ([facility])[address] [place] [address] ERYTHROCYTE MEAN CORPUSCULAR HEMOGLOBIN CONCENTRATION (G/DL) BY OZSZRXXZT40.5 g/dLLow32.0-35.0UnMiddletown HospitalComment on above:Performed By: #### [id number] ####[facility] ([facility])[address] [place] [address] Hematocrit (Bld) [Volume fraction]34.1 %Low36.0-45.0UnMiddletown HospitalComment on above:Performed By: #### [id number] ####[facility] [place], [place] [address]Pnwammpgap (Bld) [Mass/Vol]10.4 g/dL Low12.0-15.0UnMiddletown HospitalComment on above:Performed By: #### [id number] ####[facility] ([facility])[address] [place] [address]WYL (RBC) [Entitic mass]27.3 ogUwyluk51.0-33.0UnMiddletown Hospital Comment on above:Performed By: #### [id number] ####[facility] ([facility])[address] [place] [address]JFD (RBC) [Entitic vol]89.5 xQMmetgx05.0-98.0 [facility]Comment on above:Performed By: #### [id number] ####[facility] ([facility])[address] [place] [address]JSCZXAECY (10*3/UL) IN BLOOD AUTOMATED [id number] 10*3/oXBlerlf844-428EsipfsqlfgMiddletown HospitalComment on above:Performed By: #### [id number] ####[facility] [facility])[address] [place] [address]YFE (Bld) [#/Vol]3.81 10*6/uLNormal 3.80-5.00UnMiddletown HospitalComment on above:Performed By: #### [id number] ####[facility] ([facility])[address] [place] [address]MOB (Bld) [#/Vol]9.57 10*3/uLNormal4.00-10.60UnMiddletown HospitalComment on above:Performed By: #### [id number] ####[facility] ([facility])[address] [place] [address]RPTJ GLUCOSE METER UNSOLICITED RESULTSon 14-18-6020Gdxwura [Mass/Vol]302 mg/vCQggj30-182AcayiwsrldMiddletown HospitalComment on above:Order Comment: Waived Testing in the ED is performed under the ED CLIA certificate #[id number].Result Comment: [email or web address] By: #### [id number] #### [facility] ([facility]) [address] [place] [address]Yuovldf [Mass/Vol]246 mg/yFKeji26-857HmgdrecvqaMiddletown HospitalComment on above:Order Comment: Waived Testing in the ED is performed under the ED CLIA certificate #[id number].Result Comment: [email or web address] Performed By: #### [id number] #### [facility] ([facility]) [address] [place] [address]Evacfup [Mass/Vol]283 mg/cPPvde28-052TsulmpvxshParkview HealthComment on above:Order Comment: Waived Testing in the ED is performed under the ED CLIA certificate #[id number].Result Comment: [email or web address] Performed By: #### [id number] #### [facility] ([facility]) [address] [place], [place] [address]Vjkutmk [Mass/Vol]160 mg/fKTzjy24-023LklwakntvxParkview HealthComment on above:Order Comment: Waived Testing in the ED is performed under the ED CLIA certificate #[id number].Result Comment: [email or web address] Performed By: #### [id number] #### [facility] ([facility]) [address] [place] [address]18nw [id number] patient is Moderately Stable - Low risk of patient condition declining or worsening The patient's goals for the shift include REST The clinical goals for the shift include VSS Over the shift, the patient did make progress toward the following goals. B Problem: Pain - Adult Goal: Verbalizes/displays adequate comfort level or baseline comfort level Outcome: Progressing Flowsheets (Taken 02/20/2025 0800) Verbalizes/displays adequate comfort level or baseline comfort level: Encourage patient to monitor pain and request assistance Problem: Safety - Adult Goal: Free from fall injury Outcome: Progressing Problem: Discharge Planning Goal: Discharge to home or other facility with appropriate resources Outcome: Progressing Problem: Chronic Conditions and Co-morbidities Goal: Patient's chronic conditions and co-morbidity symptoms are monitored and maintained or improved Outcome: ProgressingNormalUniversity of [facility]30The patient is Moderately Stable - Low risk of patient condition declining or worsening The patient's goals for the shift include comfort The clinical goals for the shift include stable vs Problem: Pain - Adult Goal: Verbalizes/displays adequate comfort level or baseline comfort level Outcome: Progressing Flowsheets (Taken 02/19/20251929) Verbalizes/displays adequate comfort level or baseline comfort level: Encourage patient to monitor pain and request assistance Administer analgesics based on type and severity of pain and evaluate response Consider cultural and social influences on pain and pain management Problem: Safety - Adult Goal: Free from fall injury Outcome: Progressing Flowsheets (Taken 02/19/20251929) Free from fall injury: Assess patient frequently for physical needs Identify cognitive and physical deficits and behaviors that affect risk of falls Instruct patient to call for assistance with activity based on assessment Modify environment to reduce risk of injury Educate patient/family on patient safety, including physical limitations Problem: Discharge Planning Goal: Discharge to home or other facility with appropriate resources Outcome: Progressing Flowsheets (Taken 02/19/20251929) Discharge to home or other facility with appropriate resources: Arrange for needed discharge resources and transportation as appropriate Arrange for interpreters to assist at discharge as needed Refer to discharge planning if patient needs post-hospital services based on physician order or complex needs related to functional status, cognitive ability or social support system Identify barriers to discharge with patient and caregiver Problem: Chronic Conditions and Co-morbidities Goal: Patient's chronic conditions and co-morbidity symptoms are monitored and maintained or improved Outcome: Progressing Flowsheets (Taken 02/19/20251929) Care Plan - Patient's Chronic Conditions and Co-Morbidity Symptoms are Monitored and Maintained or Improved: Monitor and assess patient's chronic conditions and comorbid symptoms for stability, deterioration, or improvement Collaborate with multidisciplinary team to address chronic and comorbid conditions and prevent exacerbation or deterioration Update acute care plan with appropriate goals if chronic or comorbid symptoms are exacerbated and prevent overall improvement and discharge Problem: Respiratory - Adult Goal: Achieves optimal ventilation and oxygenation Outcome: Progressing Flowsheets (Taken 02/19/20251929) Achieves optimal ventilation and oxygenation: Assess for changes in respiratory status Position to facilitate oxygenation and minimize respiratory effort Encourage broncho-pulmonary hygiene including cough, deep breathe, incentive spirometry Respiratory therapy support as indicated Assess and instruct to report shortness of breath or any respiratory difficulty Initiate smoking cessation protocol as indicated Problem: Cardiovascular - Adult Goal: Maintains optimal cardiac output and hemodynamic stability Outcome: Progressing Flowsheets (Taken 02/19/20251929) Maintains optimal cardiac output and hemodynamic stability: Monitor blood pressure and heart rate Assess for signs of decreased cardiac output Administer vasoactive medications as ordered Goal: Absence of cardiac dysrhythmias or at baseline Outcome: Progressing Flowsheets (Taken 02/19/2025 1930) Absence of cardiac dysrhythmias or at baseline: Assess for signs of decreased cardiac output Monitor cardiac rate and rhythmNormalUniversity of Christus [facility] – ShorelineAPTTon 93-63-4057HCREOTIYK PARTIAL THROMBOPLASTIN TIME IN PPP BY COAGULATION ASSAY36.0 MbgxqqdKxql81.0-35.0UnMiddletown HospitalComment on above:Order Comment: Waived Testing in the ED is performed under the ED CLIA certificate #[id number].Result Comment: Clinical significance of the APTT is questionable in the presence of heparin.Performed By: #### [id number] #### [facility] ([facility]) [address] [place], [place] [address]ZETGYA BLOOD X 1, STOOLon 26-33-5239OCWWICTQBL GASTROINTESTINAL PRESENCE IN STOOLNegativeNormalNegative, None DetectedUnMiddletown HospitalComment on above:Performed By: #### [id number] #### [facility] ([facility]) [address] [place], [place] [address]JZJU GLUCOSE METER UNSOLICITED RESULTSon 95-63-1770Avckkfv [Mass/Vol]247 mg/hHAieh92-665MwnvoqdpdnMiddletown HospitalComment on above:Order Comment: Waived Testing in the ED is performed under the ED CLIA certificate #[id number].Result Comment: [email or web address] By: #### [id number] #### [facility] ([facility]) [address] [place], [place] [address]Gopxead [Mass/Vol]189 mg/wMYqvo36-644NayfhorflrMiddletown HospitalComment on above:Order Comment: Waived Testing in the ED is performed under the ED CLIA certificate #[id number].Result Comment: [email or web address] Performed By: #### [id number] #### [facility] ([facility]) [address] [place], [place] [address]Pposaeq [Mass/Vol]186 mg/dGYnua79-974PjbhdrlavaMiddletown HospitalComment on above:Order Comment: Waived Testing in the ED is performed under the ED CLIA certificate #[id number].Result Comment: [email or web address] Performed By: #### [id number] ####[facility] ([facility])[address] [place] [address]Gbyqjym [Mass/Vol]173 mg/dUOmrl07-349HowsohoarfMiddletown HospitalComment on above:Order Comment: Waived Testing in the ED is performed under the ED CLIA certificate #[id number].Result Comment: [email or web address] Performed By: #### [id number] ####[facility] ([facility])[address] [place] [address]78qz [id number] patient is Moderately Stable - Low risk of patient condition declining or worsening The patient's goals for the shift include comfort The clinical goals for the shift include stable vs Over the shift, the patient did make progress toward the following goals. Problem: Pain - Adult Goal: Verbalizes/displays adequate comfort level or baseline comfort level Outcome: Progressing Flowsheets (Taken 02/19/2025 0900) Verbalizes/displays adequate comfort level or baseline comfort level: Encourage patient to monitor pain and request assistance Problem: Safety - Adult Goal: Free from fall injury Outcome: Progressing Problem: Discharge Planning Goal: Discharge to home or other facility with appropriate resources Outcome: ProgressingNormalUniversity of [facility] 02-19-2025 ACTIVATED PARTIAL THROMBOPLASTIN TIME IN PPP BY COAGULATION ASSAY37.5 Seconds High25.0-35.0UnMiddletown HospitalComment on above:Order Comment: Waived Testing in the ED is performed under the ED CLIA certificate #[id number]. Result Comment: Clinical significance of the APTT is questionable in the presence of heparin.Performed By: #### [id number] #### [facility] ([facility]) [address] [place] [address]WUCBQ METABOLIC PANELon 17-55-7570Jzunr gap [Moles/Vol]9 mmol/L Normal7-20UnMiddletown HospitalComment on above:Performed By: #### [id number] ####[facility] ([facility])[address] [place], [place] [address]Vgpchte [Mass/Vol]8.3 mg/dLLow8.6-10.3UnMiddletown HospitalComment on above:Performed By: #### [id number] ####[facility] ([facility])[address] [place] [address]Nyogyahj [Moles/Vol]106 mmol/BMfinpk85-219JxzbijbyowMiddletown HospitalComment on above:Performed By: #### [id number] ####[facility] ([facility])[address] [place] [address]MI9 [Moles/Vol]25 mmol/LNormal 21-31UnMiddletown HospitalComment on above:Performed By: #### [id number] ####[facility] ([facility])[address] [place] [address]Jfligaezon [Mass/Vol]1.13 mg/dLNormal0.60-1.20UnMiddletown HospitalComment on above:Performed By: #### [id number] ####[facility] ([facility])[address] [place] [address]UYQOAWJZDU FILTRATION RATE ML/MIN/1.73 SQ M.SCYVTJJUO38.3 mL/min/1.73m*2Low>60.0UnMiddletown HospitalComment on above:Result Comment: [facility]???s estimated glomerular filtration rate (eGFR) will no [...] potential consequences that do not disproportionately affect anyone group of individuals.Performed By: #### [id number] ####[facility] ([facility])[address] [place] [address]Kjqtlba [Mass/Vol]227 mg/tAUbfx96-215ZexxjnqrxrMiddletown HospitalComment on above:Performed By: #### [id number] ####[facility] ([facility])[address] [place] [address]Ajlgaswpi [Moles/Vol]4.4 mmol/L Normal3.5-5.1UnMiddletown HospitalComment on above:Performed By: #### [id number] ####[facility] ([facility])[address] [place] [address] Sodium [Moles/Vol]136 mmol/CSmtmcn159-462YkymuaflsvMiddletown Hospital Comment on above:Performed By: #### [id number] ####[facility] ([facility])[address] [place] [address]Khzw nitrogen [Mass/Vol]39 mg/dLHigh7-25UnMiddletown HospitalComment on above:Performed By: #### [id number] ####[facility] ([facility])[address] [place] [address]WVCC NITROGEN/CREATININE (MASS RATIO) IN SER/PLAS34.5NormalUniversTrinity Health System West CampusComment on above:Performed By: #### [id number] ####[facility] ([facility])[address] [place] [address]YEFho 69-48-7198Xncldkvwypv distribution width (RBC) [Ratio] 16.0 %High11.5-15.0UnMiddletown HospitalComment on above:Performed By: #### [id number] ####[facility] ([facility])[address] [place] [address]DQPAQCMDRWB MEAN CORPUSCULAR HEMOGLOBIN CONCENTRATION (G/DL) BY AUTOMATED 30.8 g/dLLow32.0-35.0UnMiddletown HospitalComment on above: Performed By: #### [id number] ####[facility] ([facility])[address] [place] [address]Rpbzpmzvfs (Bld) [Volume fraction]33.4 %Low36.0-45.0 Parkview HealthComment on above:Performed By: #### [id number] ####[facility] [place] [address]Qrkrevzmai (Bld) [Mass/Vol]10.3 g/dLLow12.0-15.0UnMiddletown HospitalComment on above:Performed By: #### [id number] ####[facility] ([facility])[address] [place] [address]EUQ (RBC) [Entitic mass]28.3 obBerpwk77.0-33.0UnMiddletown HospitalComment on above:Performed By: #### [id number] ####[facility] ([facility])[address] [place] [address]YHU (RBC) [Entitic vol] 91.8 vPYuesin87.0-98.0UnMiddletown HospitalComment on above: Performed By: #### [id number] ####[facility] ([facility])[address] [place] [address]LYLMVKJPS (10*3/UL) IN BLOOD AUTOMATED [id number] 10*3/uLNormal 150-400UnMiddletown HospitalComment on above:Performed By: #### [id number] ####[facility] ([facility])[address] [place] [address]BIH (Bld) [#/Vol]3.64 10*6/uLLow3.80-5.00UnMiddletown HospitalComment on above:Performed By: #### [id number] ####[facility] ([facility])[address] [place] [address]UWN (Bld) [#/Vol]10.27 10*3/uLNormal4.00-10.60UnMiddletown HospitalComment on above:Performed By: #### [id number] ####[facility] ([facility])[address] [place] [address]RQIXAMVHSDhu 02-19-2025 Hemoglobin (Bld) [Mass/Vol]10.5 g/dLLow12.0-15.0UnMiddletown HospitalComment on above:Performed By: #### [id number] ####[facility] ([facility])[address] [place] [address]NSIF GLUCOSE METER UNSOLICITED RESULTS on 27-19-4655Qkkgyrb [Mass/Vol]280 mg/qXRsnk96-311MijamsuydnParkview HealthComment on above:Order Comment: Waived Testing in the ED is performed under the ED CLIA certificate #[id number].Result Comment: [email or web address] By: #### [id number] ####[facility] ([facility])[address] [place] [address] Glucose [Mass/Vol]261 mg/tTRqcc57-142LzfbeplfgmParkview HealthComment on above:Order Comment: Waived Testing in the ED is performed under the ED CLIA certificate #[id number].Result Comment: [email or web address] By: #### [id number] #### [facility] ([facility]) [address] [place], [place] [address]Ctqtogb [Mass/Vol]241 mg/uSLgis01-932VveuxsdbofParkview HealthComment on above:Order Comment: Waived Testing in the ED is performed under the ED CLIA certificate #[id number].Result Comment: [email or web address] Performed By: #### [id number] ####[facility] ([facility])[address] [place], [place] [address]Dotpoks [Mass/Vol]246 mg/eUBlap96-154XohzpfhlwdParkview HealthComment on above:Order Comment: Waived Testing in the ED is performed under the ED CLIA certificate #[id number].Result Comment: [email or web address] Performed By: #### [id number] #### [facility] [address] [place], [place] [address]20au [id number] patient is Moderately Stable - Low risk of patient condition declining or worsening The patient's goals for the shift include comfort/rest The clinical goals for the shift include stable vital signs Problem: Pain - Adult Goal: Verbalizes/displays adequate comfort level or baseline comfort level Outcome: Progressing Flowsheets (Taken 02/18/20252029) Verbalizes/displays adequate comfort level or baseline comfort level: Encourage patient to monitor pain and request assistance Administer analgesics based on type and severity of pain and evaluate response Implement non-pharmacological measures as appropriate and evaluate response Consider cultural and social influences on pain and pain management Notify Licensed Independent Practitioner if interventions unsuccessful or patient reports new pain Assess pain using appropriate pain scale Problem: Safety - Adult Goal: Free from fall injury Outcome: Progressing Flowsheets (Taken 02/18/20252029) Free from fall injury: Assess patient frequently for physical needs Identify cognitive and physical deficits and behaviors that affect risk of falls [place] fall precautions as indicated by assessment Educate patient/family on patient safety, including physical limitations Problem: Discharge Planning Goal: Discharge to home or other facility with appropriate resources Outcome: Progressing Flowsheets (Taken 02/18/20252029) Discharge to home or other facility with appropriate resources: Identify barriers to discharge with patient and caregiver Arrange for needed discharge resources and transportation as appropriate Identify discharge learning needs (meds, wound care, etc) Arrange for interpreters to assist at discharge as needed Refer to discharge planning if patient needs post-hospital services based on physician order or complex needs related to functional status, cognitive ability or social support system Problem: Chronic Conditions and Co-morbidities Goal: Patient's chronic conditions and co-morbidity symptoms are monitored and maintained or improved Outcome: Progressing Flowsheets (Taken 02/18/20252029) Care Plan - Patient's Chronic Conditions and Co-Morbidity Symptoms are Monitored and Maintained or Improved: Monitor and assess patient's chronic conditions and comorbid symptoms for stability, deterioration, or improvement Collaborate with multidisciplinary team to address chronic and comorbid conditions and prevent exacerbation or deterioration Update acute care plan with appropriate goals if chronic or comorbid symptoms are exacerbated and prevent overall improvement and dischargeNormalUniversTrinity Health System West Campus30The patient is Moderately Stable - Low risk of patient condition declining or worsening The patient's goals for the shift include Comfort/Rest The clinical goals for the shift include Stable vital signsNormalUniversUniversity Hospitals [facility] 38-04-9027SIUJDPUWK PARTIAL THROMBOPLASTIN TIME IN PPP BY COAGULATION ASSAY57.3 VocxkttGzva54.0-35.0UnMiddletown HospitalComment on above:Order Comment: Check aPTT every 6 hours while on heparin infusion, or per protocol.Result Comment: Clinical significance of the APTT is questionable in the presence of heparin.Performed By: #### [id number] #### [facility] ([facility]) [address] [place], [place] [address]MPRJBLKEO PARTIAL THROMBOPLASTIN TIME IN PPP BY COAGULATION ASSAY34.4 WtzpzlvRkjpdi86.0-35.0UnMiddletown HospitalComment on above:Order Comment: Waived Testing in the ED is performed under the ED CLIA certificate #[id number].Result Comment: Clinical significance of the APTT is questionable in the presence of heparin.Performed By: #### [id number] #### [facility] ([facility]) [address] [place] [address]P-HAOX NATRIURETIC PEPTIDEon 40-00-6762Xaupfgcavpb peptide B (Bld) [Mass/Vol]336 pg/mLHigh0-100UnMiddletown HospitalComment on above:Performed By: #### [id number] ####[facility] ([facility])[address] [place] [address]HLYCQ METABOLIC PANELon 65-42-1054Ervwt gap [Moles/Vol]13 mmol/LNormal7-20UnMiddletown HospitalComment on above:Performed By: #### [id number] #### [facility] ([facility]) [address] [place] [address]Ybmoetc [Mass/Vol]8.2 mg/dLLow8.6-10.3UnMiddletown HospitalComment on above:Performed By: #### [id number] #### [facility] ([facility]) [address] [place] [address]Guvsnjaj [Moles/Vol]107 mmol/LZgntor18-209TumofisschMiddletown HospitalComment on above:Performed By: #### [id number] #### [facility] ([facility]) [address] [place] [address]ZU4 [Moles/Vol]22 mmol/WWeqebt09-42UqbllgxdylMiddletown HospitalComment on above:Performed By: #### [id number] #### [facility] ([facility]) [address] [place], [place] [address]Zibtsgmkeg [Mass/Vol]1.17 mg/dLNormal0.60-1.20UnMiddletown HospitalComment on above:Performed By: #### [id number] #### [facility] ([facility]) [address] [place], [place] [address]EPHXGNRQIE FILTRATION RATE ML/MIN/1.73 SQ M.MEPKURPGF46.2 mL/min/1.73m*2Low>60.0UnMiddletown HospitalComment on above:Result Comment: The [facility]???s estimated glomerular filtration rate (eGFR) will no [...] potential consequences that do not disproportionately affect anyone group of individuals.Performed By: #### [id number] #### [facility] ([facility]) [address] [place], [place] [address]Eltvmlh [Mass/Vol]182 mg/dTVukt63-557CwenyjxtzwMiddletown HospitalComment on above:Performed By: #### [id number] #### [facility] ([facility]) [address] [place], [place] [address]Bucvcglij [Moles/Vol]4.5 mmol/LNormal3.5-5.1UnMiddletown HospitalComment on above:Performed By: #### [id number] #### [facility] ([facility]) [address] [place], [place] [address]Eozwon [Moles/Vol]137 mmol/XAeixwl387-157AxjkflodyvMiddletown HospitalComment on above:Performed By: #### [id number] #### [facility] ([facility]) [address] [place], [place] [address]Uogr nitrogen [Mass/Vol]40 mg/dLHigh7-25UnMiddletown HospitalComment on above:Performed By: #### [id number] #### [facility] ([facility]) [address] [place] [address]IQME NITROGEN/CREATININE (MASS RATIO) IN SER/PLAS34.2Normal [facility] HealthComment on above:Performed By: #### [id number] #### [facility] ([facility]) [address] [place] [address]EWTvy 51-59-7550Hvsgzadrnrr distribution width (RBC) [Ratio]16.1 %High11.5-15.0UnMiddletown HospitalComment on above:Performed By: #### [id number] ####[facility] ([facility])[address] [place] [address] ERYTHROCYTE MEAN CORPUSCULAR HEMOGLOBIN CONCENTRATION (G/DL) BY INAWNAVCH35.5 g/dLLow32.0-35.0UnMiddletown HospitalComment on above:Performed By: #### [id number] ####[facility] ([facility])[address] [place] [address] Hematocrit (Bld) [Volume fraction]23.9 %Low36.0-45.0UnMiddletown HospitalComment on above:Performed By: #### [id number] ####[facility] ([facility])[address] [place] [address]Atdpqhghld (Bld) [Mass/Vol]7.3 g/dLLow 12.0-15.0UnMiddletown HospitalComment on above:Performed By: #### [id number] ####[facility] ([facility])[address] [place] [address]JDZ (RBC) [Entitic mass]27.4 peZengfe73.0-33.0UnMiddletown HospitalComment on above:Performed By: #### [id number] ####[facility] ([facility])[address] [place] [address]PQF (RBC) [Entitic vol]89.8 oWQzpulx34.0-98.0UnMiddletown HospitalComment on above:Performed By: #### [id number] ####[facility] ([facility] [place] [address]SECAVNTFL (10*3/UL) IN BLOOD AUTOMATED [id number] 10*3/tJXfwrdq689-134FsxpssflrmMiddletown Hospital Comment on above:Performed By: #### [id number] ####[facility] (BEAKER)[address] [place] [address]CAZ (Bld) [#/Vol]2.66 10*6/uLLow3.80-5.00UnMiddletown HospitalComment on above:Performed By: #### [id number] ####[facility] (BEAKER)[address] [place] [address]FYG (Bld) [#/Vol]9.77 10*3/uLNormal4.00-10.60UnMiddletown HospitalComment on above: Performed By: #### [id number] ####[facility] (BEAKER)[address] [place] [address]EYYUYQQfw [id number] Attestation signed by Doyle Betts MD at 02/18/2025 7:53 PM By using the attestations below, the signing clinician agrees that I have read and verify that the documentation has been personally reviewed by me and ensure that the documentation accurately reflects the encounter. GC: I personally saw this patient on the day of the encounter, performed the aguilar portion(s) of the service and participated in the management and confirm the resident's documentation. Please note there may be an additional personal documentation from me. Additional Comments: Agree with fellow's note See my additional comments below: She is admitted for NSTEMI with hs-troponin elevated at 929 Coronary angiogram was just done now and it shows stable CAD Labs show Hb 7.3 This is a drop compared to baseline Hb level which was >9 g/dL In light of these findings, the elevated troponin is a Type II OK secondary to anemia Plan: Please transfuse 2 U PRBC Aim for Hb > 9 g/dL given CAD with elevated troponin Stop eliquis Stop plavix Maintain aspirin 81 mg daily for CAD Outpatient Watchman evaluation Cardiology Consult Note Reason for Consult: chest pain HPI: Diann Patel is a 69 y.o. female with a past medical history significant for HFrEF, CAD s/p CABG x4 in 2012, aortic valve stenosis status post TAVR in 2021 with a Medtronic Evolut FX, IDDM2, HTN . Patient presented with SOB and chest pain. She was transferred here from [place] for NSTEMI and new onset HFrEF. Vitals remarkable for BP 140/54, HR 73, on 6L oxygen. Labs notable for peak troponin 929. EKG showed NSR with non-specific ST changes. Echo on 08/18/2023 shows EF 55 to 60%, mild TR, mild mitral stenosis, mild MR, normal bioprosthetic aortic valve with no significant valvular or paravalvular regurgitation, mild GA. Cardiology was consulted for management of NSTEMI. Cardiology ROS: Negative except as mentioned. Past Medical History She has a past medical history of A-fib ([facility]/HCC), Abnormal ECG, Aortic valve stenosis, Arrhythmia, Coronary artery disease, Diabetes mellitus (CMS/HCC), Hypertension, and Peripheral vascular disease. Surgical History She has a past surgical history that includes CTA Chest W IV Contrast (06/29/2022); Hysterectomy; CTA Chest W IV Contrast (07/12/2022); CTA Abdomen Pelvis W IV Contrast (07/12/2022); Cardiac surgery; Colon surgery; Appendectomy; Cholecystectomy; [...] Diabetes Brother Allergies Penicillin and Penicillins Medications Current Outpatient Medications Medication Instructions amLODIPine (NORVASC) 10 mg, oral, Daily apixaban 5 mg, oral, 2 times daily atorvastatin (LIPITOR) 80 mg, oral, Daily azithromycin (ZITHROMAX) 500 mg, oral, Once as needed carvedilol (Coreg) 25 mg tablet Take one tablet twice daily. citalopram (CELEXA) 20 mg, oral, Daily clopidogrel (PLAVIX) 75 mg, oral, Once Daily dabigatran etexilate (PRADAXA) 150 mg, oral, 2 times daily, Do not crush or chew. DICLOFENAC SODIUM TOP 4 g, topical (top), 4 times daily ferrous sulfate 325 (65 Fe) MG EC tablet 65 mg of iron, oral, Daily, Do not crush, chew, or split. furosemide (LASIX) 20 mg, oral, Daily, To be taken with 40 mg lasix for a total of 60 mg daily gabapentin (NEURONTIN) 300 mg, oral, 2 times daily hydrALAZINE (APRESOLINE) 50 mg, oral, 2 times daily hydrALAZINE (APRESOLINE) 25 mg, oral, 2 times daily, Take in addition to the 50 mg tablet for a total of 75 mg twice daily. insulin glargine (LANTUS) 80 Units, subcutaneous, Nightly insulin regular (HUMULIN R,NOVOLIN R) 10 Units, subcutaneous, 3 times daily with meals lisinopril 20 mg, oral, Once Daily loratadine (CLARITIN) 10 mg, oral, Daily potassium chloride CR (Klor-Con M10) 10 mEq ER tablet 20 mEq, oral, Daily, Do not crush or chew. Medications Prior to Admission Medication Sig Dispense Refill Last Dose amLODIPine (Norvasc) 10 mg tablet Take 1 tablet (10 mg) by mouth in the morning. 90 tablet 3 apixaban 5 mg (74 tabs) tablets,dose pack Take 5 mg by mouth two times daily. atorvastatin (Lipitor) 80 mg tablet Take 80 mg by mouth in the morning. azithromycin (Zithromax) 500 mg tablet Take 1 tablet (500 mg) by mouth 1 (one) time if needed (30 to 60 minutes prior to dental procedure) for up to 40 doses. (Patient not taking: Reported on 02/18/2025) 10 tablet 3 Unknown carvedilol (Coreg) 25 mg tablet Take one tablet twice daily. (more content not included)...NormalUnMiddletown HospitalFERRITINon 02-18-2025 FERRITIN (NG/ML) IN SER/PLAS18.0 ng/dZGqmdpy93.0-307.0UnMiddletown HospitalComment on above:Performed By: #### [id number] #### [facility] ([facility]) [address] [place] [address]EYEPHBit 12-40-3316VXHILJ (NG/ML) IN SER/PLAS35.0 ng/mLNormal 6.6-1000UnMiddletown HospitalComment on above:Performed By: #### [id number] ####[facility] ([facility])[address] [place] [address]XDYADZD FUNCTION PANELon 79-39-5846Ugumjka [Mass/Vol]3.7 g/dLNormal3.5-5.7UnMiddletown HospitalComment on above:Performed By: #### [id number] #### [facility] ([facility]) [address] [place], [place] [address]EWP [Catalytic activity/Vol]66 U/NDhwkcf97-171LmancmplzyMiddletown HospitalComment on above:Performed By: #### [id number] #### [facility] ([facility]) [address] [place], [place] [address]LHQ [Catalytic activity/Vol]12 U/LNormal7-52UnMiddletown HospitalComment on above:Performed By: #### [id number] #### [facility] ([facility]) [address] [place], [place] [address]DWD [Catalytic activity/Vol]21 U/LSiwiyi54-01JnujnnookbMiddletown HospitalComment on above:Performed By: #### [id number] #### [facility] ([facility]) [address] [place], [place] [address]Lqdlerhaj [Mass/Vol]0.4 mg/dLNormal0.3-1.0UnMiddletown HospitalComment on above:Performed By: #### [id number] #### [facility] ([facility]) [address] [place], [place] [address]Dkrrpmorr [Mass/Vol]0.1 mg/dLNormal0-0.2UnMiddletown HospitalComment on above:Performed By: #### [id number] #### [facility] ([facility]) [address] [facility] [place], [place] [address]Qkzzxlq [Mass/Vol]6.4 g/dLNormal6.0-8.3UnMiddletown HospitalComment on above:Performed By: #### [id number] #### [facility] ([facility]) [address] [place], [place] [address]FFJO SENSITIVITY TROPONIN Ion 34-57-2940GX TROPONIN I (NG/L)929 ng/LCritically high<15UnMiddletown HospitalComment on above: Performed By: #### [id number] ####[facility] ([facility])[address] [place], [place] [address]JVlk 69-79-3882POA&P reviewed. The patient was examined and there are no changes to the H&P. Patient is well-known to me. She has history of carotid disease status post bypass surgery in the past, aortic valve stenosis status post TAVR in 2021 with a Medtronic Evolut FX. She has atrial fibrillation. She presents with heart failure decompensation and elevated troponin consistent with NSTEMI. She was referred for cardiac catheterization. I discussed with her the risks and benefits of the procedure including risk of OK, stroke and . She understands and agrees to proceed.NormalUnMiddletown HospitalIRON AND TIBCon 87-17-2496MIKH (UG/DL) IN SER/PLAS31 ug/kXAbn76-037JbmkazenexMiddletown HospitalComment on above:Performed By: #### [id number] ####[facility] ([facility])[address] [place], [place] [address]ZINA BINDING CAPACITY (UG/DL) IN SER/UCGR518 ug/kVDphemi773-410SoovjkkessMiddletown Hospital Comment on above:Performed By: #### [id number] ####[facility] ([facility])[address] [place] [address]CIQN BINDING CAPACITY.UNSATURATED (UG/DL) IN SER/MUGB318.0 ug/fNMzokwu387.0-355.0UnMiddletown HospitalComment on above:Performed By: #### [id number] ####[facility] ([facility])[address] [place] [address]CWCK SATURATION (%) IN SER/PLAS8 %Gfi31-36DuizrobxyeMiddletown HospitalComment on above:Performed By: #### [id number] ####[facility] ([facility])[address] [place] [address]SQXNMRJBKhf 02-18-2025 Magnesium [Mass/Vol]2.7 mg/dLNormal1.9-2.7UnMiddletown Hospital Comment on above:Performed By: #### [id number] ####[facility] ([facility])[address] [place], [place] [address]VEEJ GLUCOSE METER UNSOLICITED RESULTSon 02-18-2025 Glucose [Mass/Vol]172 mg/pKArdn09-658DlrbnnaphqMiddletown HospitalComment on above:Order Comment: Waived Testing in the ED is performed under the ED CLIA certificate #[id number].Result Comment: [id number] By: #### [id number] ####[facility] ([facility])[address] [place], [place] [address]Xkjkobc [Mass/Vol]210 mg/wDUxnz53-143FxyrbkefqmMiddletown HospitalComment on above:Order Comment: Waived Testing in the ED is performed under the ED CLIA certificate #[id number].Result Comment: [id number] By: #### [id number] #### [facility] ([facility]) [address] [place], [place] [address]OQQG AND SCREENon 40-90-1305OA SCREENNegativeNormalUniversity Chillicothe VA Medical CenterComment on above:Performed By: #### [id number] ####[facility],ABO group Nom (Bld)ONormalUnMiddletown HospitalComment on above:Performed By: #### [id number] ####[facility],RH TYPE IN BLOODPositive NormalUnMiddletown HospitalComment on above:Performed By: #### [id number] ####[facility],VITAMIN B12on 54-89-1154Ecpenqzpv (Vitamin B12) [Mass/Vol]553 pg/yYDjsnyy659-640BchpnjtspxMiddletown HospitalComment on above:Result Comment: REFERENCE RANGES: 180-914 pg/mL Normal 145-179 pg/mL Indeterminate <145 pg/mL DeficientPerformed By: #### [id number] ####[facility] (BEAKER)[address] [place], [place] [address]J6G with Estimated Average Gluon 91-08-4103Bzacsxq [Mass/Vol]194 mg/dLNormalThe [facility] Physician GroupComment on above:Order Comment: pt is getting an ultrasoundResult Comment: PERFORMED BY: [facility] [address] [place] [address] PATHOLOGIST [employer] OPERATOR SANKET KIRKPATRICK M.D.Performed By: #### BMP, CBC #### [facility] [address] [place] [address] YECVhB2w (Bld) [Mass fraction]8.4 %High4.3-5.6The [facility] Physician [facility] HospitalComment on above:Order Comment: pt is getting an ultrasoundResult Comment: Increased risk for diabetes: 5.7 - 6.4 diabetes: >6.4 glycemic control for adults with diabetes: <7.0Performed By: #### BMP, CBC #### [facility] [address] [place] [address] USAAlanine aminotransferase [Enzymatic activity/volume] in Serum or PlasmaOrdered By: Edvin Casper on 01-89-0927ETQ [Catalytic activity/Vol]Alanine aminotransferase [Enzymatic activity/volume] in Serum or Plasma[address] [place], [place] [address]Albumin [Mass/volume] in Serum or Plasma by Bromocresol green (BCG) dye binding methoOrdered By: Edvin Casper on 67-49-1182Jnyswjv BCG dye [Mass/Vol]Albumin [Mass/volume] in Serum or Plasma by Bromocresol green (BCG) dye binding metho3.5-5.7FLakeHealth Beachwood Medical CenterAlkaline phosphatase [Enzymatic activity/volume] in Serum or PlasmaOrdered By: Edvin Casper on 66-32-5044SIO [Catalytic activity/Vol] Alkaline phosphatase [Enzymatic activity/volume] in Serum or Xtnmuv74-602 [facility] HospitalAspartate aminotransferase [Enzymatic activity/volume] in Serum or PlasmaOrdered By: Edvin Casper on 02-16-2025 AST [Catalytic activity/Vol]Aspartate aminotransferase [Enzymatic activity/volume] in Serum or Zqcpvq16-77SoiocuytdMercy Health Anderson Hospital Basophils Auto (Bld) [#/Vol]Ordered By: Edvin Casper on 02-16-2025 Basophils (Bld) [#/Vol]Automated basophil count0.0-0.2FLakeHealth Beachwood Medical CenterBasophils/100 WBC Auto (Bld)Ordered By: Edvin Casper on 02-16-2025 Basophils/100 WBC (Bld)Automated basophil %.[facility] Bilirubin.total [Mass/volume] in Serum or PlasmaOrdered By: Edvin Casper 79-14-0431Uyvmfqhdo [Mass/Vol]Bilirubin.total [Mass/volume] in Serum or Plasma0.3-1.0[facility] HospitalBlood estimated average glucose determination by estimation from glycated hemoglobinOrdered By: Edvin Casper on 39-20-9634Mgtfuab glucose Estimated from glycated hemoglobin (Bld) [Mass/Vol]Glucose mean value [Mass/volume] in Blood Estimated from glycated hemoglobinMercy Health Anderson HospitalCalcium [Mass/volume] in Serum or PlasmaOrdered By: Edvin Casper 63-82-8623Pinahyy [Mass/Vol]Calcium [Mass/volume] in Serum or PlasmaLow8.6-10.3FLakeHealth Beachwood Medical Center Carbon dioxide, total [Moles/volume] in Serum or PlasmaOrdered By: Edvin Casper 32-43-2647WP7 [Moles/Vol]Carbon dioxide, total [Moles/volume] in Serum or Axuwhm18.0-31.0[facility] HospitalChloride [Moles/volume] in Serum or PlasmaOrdered By: Edvin Casper on 67-40-9821Ekmjdieg [Moles/Vol]Chloride [Moles/volume] in Serum or Wjznam34-340RbtetiegfMercy Health Anderson HospitalCholesterol [Mass/volume] in Serum or PlasmaOrdered By: Edvin Casper on 78-20-9470Muyrszjzvql [Mass/Vol]Cholesterol [Mass/volume] in Serum or SgumrhHsb405-516XjjwffkrdMercy Health Anderson HospitalComment on above:Chol less than 200 mg/dl low riskChol 201-239 mg/dl borderline riskChol 240 mg/dl and greater high riskCholesterol in HDL [Mass/volume] in Serum or PlasmaOrdered By: Edvin Casper on 42-62-1696Jhtmsqocgdk in HDL [Mass/Vol]Serum or plasma high density lipoprotein (HDL) cholesterol srqzxxqzwix47-21WvyvmtsqsMercy Health Anderson HospitalComment on above:HDL CHOL ATP-III CLASSIFICATION Cardiovascular RiskHDL > or equal to 60 mg/dL LOWHDL < 40 mg/dL HIGHCholesterol in LDL Calc [Mass/Vol]Ordered By: Edvin Casper on 83-08-4950Txdexhjwylm in LDL [Mass/Vol]Cholesterol in LDL [Mass/volume] in Serum or Plasma by calculation 0-100Mer[facility] Anderson HospitalComment on above:LDL ATP III CLASSIFICATIONLDL less than 100 mg/dL OptimalLDL 100-129 mg/dL Near or above mmmihwwOVM316-804 mg/dL Borderline highLDL 160-189 mg/dL HighLDL greater than 189 mg/dL Very highCholesterol in VLDL Calc [Mass/Vol]Ordered By: Edvin Casper on 37-42-3566Fngpttsngvy in VLDL [Mass/Vol]Cholesterol in VLDL [Mass/volume] in Serum or Plasma by calculationMercy Health Anderson Hospital Complete Blood Count Auto Diffon 25-23-7453Gmglaqipw (Bld) [#/Vol]0.1 10*3/uL Normal0.0-0.2[facility] Physician GroupComment on above:Order Comment: pt is getting an ultrasoundResult Comment: PERFORMED BY: [place] [address] PATHOLOGIST [employer] OPERATOR SANKET KIRKPATRICK M.D.Performed By: #### BMP, CBC #### [place] [address] USABasophils/100 WBC (Bld)1.3 %Normal.The [facility] Physician GroupComment on above:Order Comment: pt is getting an ultrasoundPerformed By: #### BMP, CBC #### [place] [address] USAEosinophils (Bld) [#/Vol]0.3 10*3/uLNormal0.0-0.45The [facility] Physician GroupComment on above:Order Comment: pt is getting an ultrasoundPerformed By: #### BMP, CBC #### [place] [address] USAEosinophils/100 WBC (Bld)3.3 %Normal.The [facility] Physician GroupComment on above:Order Comment: pt is getting an ultrasound Performed By: #### BMP, CBC #### [place] [address] USAErythrocyte distribution width (RBC) [Ratio]16.4 %High 11.9-15.3The [facility] Physician GroupComment on above:Order Comment: pt is getting an ultrasoundPerformed By: #### BMP, CBC #### [place] [address] USAHematocrit (Bld) [Volume fraction]24.7 %Low34.0-46.4The [facility] Physician GroupComment on above:Order Comment: pt is getting an ultrasoundPerformed By: #### BMP, CBC #### [place] [address] USAHemoglobin (Bld) [Mass/Vol]8.2 g/dLLow11.8-15.4The [facility] Physician GroupComment on above:Order Comment: pt is getting an ultrasoundPerformed By: #### BMP, CBC #### [place] [address] USALymphocytes (Bld) [#/Vol]2.3 10*3/uLNormal1.00-4.8The [facility] Physician GroupComment on above:Order Comment: pt is getting an ultrasoundPerformed By: #### BMP, CBC #### [place] [address] USALymphocytes/100 WBC (Bld)25.6 %Normal.The [facility] Physician GroupComment on above:Order Comment: pt is getting an ultrasound Performed By: #### BMP, CBC #### [address] (RBC) [Entitic mass]28.4 cwLawoyv30.7-34.3The [facility] Physician GroupComment on above:Order Comment: pt is getting an ultrasoundPerformed By: #### BMP, CBC #### [place] [address] USAV (RBC) [Entitic vol]85.9 iWCshvfs10-724Yvg [facility] Physician GroupComment on above:Order Comment: pt is getting an ultrasound Performed By: #### BMP, CBC #### [place] [address] USAMean Corpuscular HGB Conc33.0 g/tDWhdmko62.0-35.0The [facility] Physician GroupComment on above:Order Comment: pt is getting an ultrasoundPerformed By: #### BMP, CBC #### [place] [address] USAMonocytes (Bld) [#/Vol]1.1 10*3/uLHigh0.0-0.8The [facility] Physician GroupComment on above:Order Comment: pt is getting an ultrasound Performed By: #### BMP, CBC #### [place] [address] USAMonocytes/100 WBC (Bld)12.6 %Normal.The [facility] Physician GroupComment on above:Order Comment: pt is getting an ultrasound Performed By: #### BMP, CBC #### [facility] [address] [place] [address] USANeutrophils (Bld) [#/Vol]5.0 10*3/uLNormal1.8-7.7The [facility] Physician GroupComment on above:Order Comment: pt is getting an ultrasoundPerformed By: #### BMP, CBC #### [facility] [address] [place] [address] USANeutrophils/100 WBC (Bld)57.2 %Normal.The [facility] Physician GroupComment on above:Order Comment: pt is getting an ultrasound Performed By: #### BMP, CBC #### [facility] [address] [place] [address] USANRBC%0.0 /100{WBC}Normal0-0.5The [facility] Physician Group Comment on above:Order Comment: pt is getting an ultrasoundPerformed By: #### BMP, CBC #### [facility] [address] [place] [address] USAPlatelet mean volume (Bld) [Entitic vol]8.9 fLNormal 6.3-10.7The [facility] Physician GroupComment on above:Order Comment: pt is getting an ultrasoundPerformed By: #### BMP, CBC #### [facility] [address] [place] [address] USAPlatelets (Bld) [#/Vol]166 10*3/kORqgkgh422-698Jdv [facility] Physician GroupComment on above:Order Comment: pt is getting an ultrasoundPerformed By: #### BMP, CBC #### [facility] [address] [place] [address] USARBC (Bld) [#/Vol]2.87 10*6/uLLow3.60-5.00The [facility] Physician GroupComment on above:Order Comment: pt is getting an ultrasound Performed By: #### BMP, CBC #### [facility] [address] [place] [address] USAWBC (Bld) [#/Vol]8.8 10*3/uLNormal3.8-11.6The [facility] Physician GroupComment on above:Order Comment: pt is getting an ultrasound Performed By: #### BMP, CBC #### [facility] [address] [place] [address] USAComprehensive Metabolic Panelon 40-66-0513Ukbecob [Mass/Vol]3.8 g/dLNormal3.5-5.7The [facility] Physician GroupComment on above: Order Comment: FASTING Y pt is getting an ultrasoundPerformed By: #### BMP, CBC #### [facility] [address] [place] [address] USAAlbumin/Globulin [Mass ratio]1.8 {ratio}NormalThe [facility] Physician GroupComment on above:Order Comment: FASTING Y pt is getting an ultrasoundPerformed By: #### BMP, CBC #### [place] [address] USAALP [Catalytic activity/Vol]64 U/MYaqubl38-244Ipb [facility] Physician GroupComment on above:Order Comment: FASTING Y pt is getting an ultrasoundPerformed By: #### BMP, CBC #### [place] [address] USAALT [Catalytic activity/Vol]15 U/LNormal7-52The [facility] Physician GroupComment on above:Order Comment: FASTING Y pt is getting an ultrasoundPerformed By: #### BMP, CBC #### [place] [address] USAAnion gap [Moles/Vol]10.7 mmol/LNormal6.0-15.0The [facility] Physician GroupComment on above:Order Comment: FASTING Y pt is getting an ultrasoundPerformed By: #### BMP, CBC #### [place] [address] USAAST [Catalytic activity/Vol]17 U/GNhognz60-75Yxb [facility] Physician GroupComment on above:Order Comment: FASTING Y pt is getting an ultrasoundPerformed By: #### BMP, CBC #### [place] [address] USABilirubin [Mass/Vol]0.3 mg/dLNormal0.3-1.0The [facility] Physician GroupComment on above:Order Comment: FASTING Y pt is getting an ultrasoundPerformed By: #### BMP, CBC #### [facility] [address] [place] [address] USACalcium [Mass/Vol]8.3 mg/dLLow8.6-10.3The [facility] Physician GroupComment on above:Order Comment: FASTING Y pt is getting an ultrasoundPerformed By: #### BMP, CBC #### [facility] [address] [place] [address] USAChloride [Moles/Vol]105 mmol/TOaimvn06-574Csb [facility] Physician GroupComment on above:Order Comment: FASTING Y pt is getting an ultrasoundPerformed By: #### BMP, CBC #### [place] [address] USACO2 [Moles/Vol]26.2 mmol/DRgjngl20.0-31.0The [facility] Physician GroupComment on above:Order Comment: FASTING Y pt is getting an ultrasoundPerformed By: #### BMP, CBC #### [facility] [address] [place] [address] USACreatinine [Mass/Vol]1.44 mg/dLHigh0.60-1.20The [facility] Physician GroupComment on above:Order Comment: FASTING Y pt is getting an ultrasoundPerformed By: #### BMP, CBC #### [place] [address] USACreatinine Clr Calc Kdywxkof90.01NoAt[facility] Physician GroupComment on above:Order Comment: FASTING Y pt is getting an ultrasoundPerformed By: #### BMP, CBC #### [facility] [address] [place] [address] USAEstimated GFR39.128 mL/MinNoAtrium Health [facility] Mountain Physician GroupComment on above:Order Comment: FASTING Y pt is getting an ultrasound Performed By: #### BMP, CBC #### [facility] [address] [place] [address] USAGlobulin (S) [Mass/Vol]2.1 g/dLNoAtrium Health [facility] Physician GroupComment on above:Order Comment: FASTING Y pt is getting an ultrasoundPerformed By: #### BMP, CBC #### [facility] [address] [place] [address] USAGlucose [Mass/Vol]142 mg/dLSignificant change sp11-783Dra [facility] Physician GroupComment on above:Order Comment: FASTING Y pt is getting an ultrasoundResult Comment: Random Glucose Reference Range is dependent on time and content of last meal. Glucose of more than 200 mg/dL in a nonstressed, ambulatory subject supports the diagnosis of Diabetes Mellitus. ADA recommended reference rangePerformed By: #### BMP, CBC #### [facility] [address] [place] [address] USAPotassium [Moles/Vol]4.9 mmol/LNormal3.5-5.1The [facility] Physician GroupComment on above:Order Comment: FASTING Y pt is getting an ultrasoundPerformed By: #### BMP, CBC #### [facility] [address] [place] [address] USAProtein [Mass/Vol]5.9 g/dLLow6.4-8.9The [facility] Physician GroupComment on above:Order Comment: FASTING Y pt is getting an ultrasoundPerformed By: #### BMP, CBC #### [facility] [address] [place] [address] USASodium [Moles/Vol]137 mmol/SMyfqio972-880Hhj [facility] Physician GroupComment on above:Order Comment: FASTING Y pt is getting an ultrasoundPerformed By: #### BMP, CBC #### [facility] [address] [place] [id number] USAUrea nitrogen [Mass/Vol]48 mg/dLHigh7-25The [facility] Physician GroupComment on above:Order Comment: FASTING Y pt is getting an ultrasoundPerformed By: #### BMP, CBC #### [facility] [address] [place] [id number] USACreatinine [Mass/volume] in Serum or PlasmaOrdered By: Edvin Casper on 50-63-2570Fxwlyxqhlb [Mass/Vol]Creatinine [Mass/volume] in Serum or PlasmaHigh0.60-1.20[facility] HospitalEosinophils Auto (Bld) [#/Vol]Ordered By: Edvin Casper on 55-18-5917Plyploxmfpz (Bld) [#/Vol]Automated eosinophil count0.0-0.45[facility] Eosinophils/100 WBC Auto (Bld)Ordered By: Edvintara Casper on 02-16-2025 Eosinophils/100 WBC (Bld)Automated eosinophil %.[facility] HospitalErythrocyte distribution width Auto (RBC) [Ratio]Ordered By: Edvin Casper on 64-43-5967Ctjfbkswzao distribution width (RBC) [Ratio]Erythrocyte distribution width [Ratio] by Automated ezehpPlum44.9-15.3FLakeHealth Beachwood Medical CenterFerritinon 08-70-2899Rjbkdfmi [Mass/Vol]13.5 ng/mFMcpiwv07.0-306.8 The [facility] Physician GroupComment on above:Order Comment: FASTING Y pt is getting an ultrasoundPerformed By: #### BMP, CBC #### [facility] [address] [place] [address] USAFerritin [Mass/volume] in Serum or PlasmaOrdered By: Edvin [facility] on 42-99-1326Dfuqccdf [Mass/Vol]Ferritin [Mass/volume] in Serum or Vfnvgi41.0-306.8[facility] HospitalFolate [Mass/volume] in Serum or PlasmaOrdered By: Edvin [facility] on 78-95-3407Aipbrb [Mass/Vol] Folate [Mass/volume] in Serum or Plasma>5.9[facility] Comment on above:Folate reference range: >5.9 ng/mlThe WHO technical consultation on folate and vitamin h62ipxslgockhno has determined that folate concentrations lessthan 4 ng/ml are considered deficient.Globulin Calc (S) [Mass/Vol]Ordered By: Edvin Morochonc on 56-88-3285Qgjddznh (S) [Mass/Vol] Serum globulin measurement by calculation (mass/volume)[facility] HospitalGlucose Glucometer (BldC) [Mass/Vol]Ordered By: Edvintara Morochonc on 15-73-6503Iopavbg [Mass/Vol]Capillary blood glucose measurement by glucometer (mass/volume)[facility] HospitalComment on above:Random Glucose Reference Range is dependent on time and content of last meal. Glucose of more than 200 mg/dL in a nonstressed, ambulatory subject supports the diagnosis of Diabetes Mellitus.Glucose Poct Glucometerson 82-66-0460Riwedow [Mass/Vol]254 mg/dLBaptist Medical Center Physician GroupComment on above:Result Comment: Random Glucose Reference Range is dependent on time and content of last meal. Glucose of more than 200 mg/dL in a nonstressed, ambulatory subject supports the diagnosis of Diabetes Mellitus. PERFORMED BY: [address] [place] [address] PATHOLOGIST [employer] PLANT OPERATOR SANKET KIRKPATRICK M.D.Performed By: #### GLULS #### Point of Care testing ,Vxsgqtl4Kyo3: Cleaned MeterNoAtrium Health Kings Mountain Physician GroupComment on above: Result Comment: PERFORMED BY: [facility] [address] [facility] [place] [address] PATHOLOGIST CEMENT [employer] PLANT OPERATOR SANKET KIRKPATRICK M.D.Performed By: #### GLULS #### Point of Care testing ,Glucose [Mass/Vol]170 mg/dLBaptist Medical Center Physician GroupComment on above: Result Comment: Random Glucose Reference Range is dependent on time and content of last meal. Glucose of more than 200 mg/dL in a nonstressed, ambulatory subject supports the diagnosis of Diabetes Mellitus.Performed By: #### GLULS #### Point of Care testing ,Glucose [Mass/volume] in Serum or PlasmaOrdered By: Edvin Casper on 34-88-7355Fbltfnd [Mass/Vol]Glucose [Mass/volume] in Serum or PlasmaInvalid Interpretation Zdrd53-898HjbkzmyjnMercy Health Anderson HospitalComment on above: Delta: 371 on 02/15/25-1430ADA recommended reference rangeRandom Glucose Reference Range is dependent on time and content of last meal. Glucose of more than 200 mg/dL in a nonstressed, ambulatory subject supports the diagnosis of Diabetes Mellitus.Hematocrit Auto (Bld) [Volume fraction]Ordered By: Edvin Casper on 58-21-9803Uzhutakxnj (Bld) [Volume fraction]Hematocrit [Volume Fraction] of Blood by Automated ntiaiRgk73.0-46.4FLakeHealth Beachwood Medical CenterHemoglobin A1c/Hemoglobin.total in BloodOrdered By: Edvin Casper on 75-70-7746ZgU9w (Bld) [Mass fraction]Hemoglobin A1c percentageHigh4.3-5.6 [facility] HospitalComment on above:Increased risk for diabetes: 5.7 - 6.4diabetes: >6.4glycemic control for adults with diabetes: <7.0 Hemoglobin [Mass/volume] in BloodOrdered By: Edvin Casper on 02-16-2025 Hemoglobin (Bld) [Mass/Vol]Hemoglobin [Mass/volume] in WmodmNcv61.8-15.4 [facility] HospitalIron [Mass/volume] in Serum or PlasmaOrdered By: Edvin Casper on 03-62-1435Gqvk [Mass/Vol]Iron [Mass/volume] in Serum or WgdzwzMgy53-762JpxfeybzgMercy Health Anderson HospitalIron and TIBC Profileon 02-16-2025% Iron Frlrqghxlm80.4 %Kje66-79Pua [facility] Physician GroupComment on above:Order Comment: FASTING Y pt is getting an ultrasoundPerformed By: #### BMP, CBC #### [facility] [address] [place] [address] USAIron [Mass/Vol]45 ug/oMJvx53-221Gua [facility] Physician GroupComment on above:Order Comment: FASTING Y pt is getting an ultrasound Performed By: #### BMP, CBC #### [facility] [address] [place] [address] USATotal Iron Binding Httjniif326 ug/bLYisygq960-296Mhw [facility] Physician GroupComment on above:Order Comment: FASTING Y pt is getting an ultrasoundPerformed By: #### BMP, CBC #### [facility] [address] [place] [address] USATransferrin [Mass/Vol]309 mg/hYOxqpye092-414Pub [facility] Physician GroupComment on above:Order Comment: FASTING Y pt is getting an ultrasoundPerformed By: #### BMP, CBC #### [facility] [address] [place] [address] USALeukocytes [#/volume] corrected for nucleated erythrocytes in Blood by Automated counOrdered By: Edvin Casper on 30-33-2940LPK corrected for nucl RBC Auto (Bld) [#/Vol]Leukocytes [#/volume] corrected for nucleated erythrocytes in Blood by Automated coun3.8-11.6FLakeHealth Beachwood Medical CenterLipid Panelon 03-38-6120Tlzaqnfbrhh [Mass/Vol]119 mg/mPHws461-383 The [facility] Physician GroupComment on above:Order Comment: FASTING Y pt is getting an ultrasoundResult Comment: Chol less than 200 mg/dl low risk Chol 201-239 mg/dl borderline risk Chol 240 mg/dl and greater high riskPerformed By: #### BMP, CBC #### [facility] [address] [place] [address] USACholesterol in HDL [Mass/Vol]28 mg/pFNffith05-00Hfy [facility] Physician GroupComment on above:Order Comment: FASTING Y pt is getting an ultrasoundResult Comment: HDL CHOL ATP-III CLASSIFICATION Cardiovascular Risk HDL > or equal to 60 mg/dL LOW HDL < 40 mg/dL HIGHPerformed By: #### BMP, CBC #### [facility] [address] [place] [address] USACholesterol.total/Cholesterol in HDL [Mass ratio]4.3 {ratio}Normal<5.0The [facility] Physician GroupComment on above:Order Comment: FASTING Y pt is getting an ultrasoundPerformed By: #### BMP, CBC #### [facility] [address] [place] [address] USALDL Cholesterol,Jpmexwhsil53 mg/dLNormal0-100The [facility] Physician GroupComment on above:Order Comment: FASTING Y pt is getting an ultrasoundResult Comment: LDL ATP III CLASSIFICATION LDL less than 100 mg/dL Optimal LDL 100-129 mg/dL Near or above optimal LDL 130-159 mg/dL Borderline high LDL 160-189 mg/dL High LDL greater than 189 mg/dL Very highPerformed By: #### BMP, CBC #### [facility] [address] [place] [address] USATriglyceride w/Nzxxdy122 mg/dLHigh0-149The [facility] Physician GroupComment on above:Order Comment: FASTING Y pt is getting an ultrasoundResult Comment: TRIG ATP III CLASSIFICATION TRIG less than 150 mg/dL Normal TRIG 150-199 mg/dL Borderline high TRIG 200-500 mg/dL High TRIG greater than 500 mg/dL Very high Standard traceable to the Center for Disease Conrtrol and Prevention (CDC) test method.Performed By: #### BMP, CBC #### [facility] [address] [place] [address] USAVLDL WCYLSQIIFCL48 mg/dLNormalThSt. Luke's [facility] Physician GroupComment on above:Order Comment: FASTING Y pt is getting an ultrasound Performed By: #### BMP, CBC #### [facility] [address] [place] [address] USALymphocytes Auto (Bld) [#/Vol]Ordered By: Edvin Casper on 07-08-3792Pjzzfcubsmt (Bld) [#/Vol]Lymphocytes [#/volume] in Blood by Automated count1.00-4.8[facility] HospitalLymphocytes/100 WBC Auto (Bld)Ordered By: Edvin Casper on 06-43-4243Dwjwbrhyfup/100 WBC (Bld) Lymphocytes/100 leukocytes in Blood by Automated count.[facility] Auto (RBC) [Entitic mass]Ordered By: Edvin Casper on 44-23-7951LML (RBC) [Entitic mass]MCH [Entitic mass] by Automated count24.7-34.3 [facility] Auto (RBC) [Mass/Vol]Ordered By: Edvin Casper on 70-60-0283OOLG (RBC) [Mass/Vol]MCHC [Mass/volume] by Automated count32.0-35.0[facility] FoundationV Auto (RBC) [Entitic vol] Ordered By: Edvin Casper on 24-09-6107GSY (RBC) [Entitic vol]MCV [Entitic volume] by Automated eqzho41-818KoaxgzwddMercy Health Anderson HospitalMonocytes Auto (Bld) [#/Vol]Ordered By: Edvin Casper on 51-86-4021Hyffarkjk (Bld) [#/Vol]Automated blood monocyte countHigh0.0-0.8[facility] HospitalMonocytes/100 WBC Auto (Bld)Ordered By: Edvin Casper on 02-16-2025 Monocytes/100 WBC (Bld)Automated monocyte %.[facility] Neutrophils Auto (Bld) [#/Vol]Ordered By: Edvin Casper on 02-16-2025 Neutrophils (Bld) [#/Vol]Neutrophils [#/volume] in Blood by Automated count 1.8-7.7FLakeHealth Beachwood Medical CenterNeutrophils/100 WBC Auto (Bld)Ordered By: Edvin Casper on 71-60-0897Gkcmksztumy/100 WBC (Bld)Automated neutrophil %.[facility] HospitalNo Panel InformationOrdered By: Edvin Casper on 66-72-2380Cfesgpq Glucose CommentGlu2: cleaned meter [facility] HospitalEstimated GFR (CKD-EPI)39.128 mL/MinMercy Health Anderson HospitalPharmacy Creatinine Clearance (Chem36.01[facility] HospitalNucleated erythrocytes [Presence] in Blood by Automated countOrdered By: Edvin Casper on 63-32-5299Uuyskuhmf RBC Auto Ql (Bld) Nucleated erythrocytes [Presence] in Blood by Automated count0-0.5FLakeHealth Beachwood Medical CenterPlatelet mean volume Auto (Bld) [Entitic vol]Ordered By: Edvin Casper on 10-59-0868Vjpqaqws mean volume (Bld) [Entitic vol] Platelet mean volume [Entitic volume] in Blood by Automated count6.3-10.7 [facility] HospitalPlatelets Auto (Bld) [#/Vol]Ordered By: Edvin Casper on 27-20-0983Unbvutenl (Bld) [#/Vol]Platelets [#/volume] in Blood by Automated -160ZmomhyylaMercy Health Anderson HospitalPotassium [Moles/volume] in Serum or PlasmaOrdered By: Edvin Casper on 02-16-2025 Potassium [Moles/Vol]Potassium [Moles/volume] in Serum or Plasma3.5-5.1FLakeHealth Beachwood Medical CenterProtein [Mass/volume] in Serum or PlasmaOrdered By: Edvin Casper on 69-77-9604Nyccami [Mass/Vol]Protein [Mass/volume] in Serum or PlasmaLow6.4-8.9[facility] HospitalRBC Auto (Bld) [#/Vol] Ordered By: Edvin Casper on 78-61-4202LBR (Bld) [#/Vol]Erythrocytes [#/volume] in Blood by Automated countLow3.60-5.00Morrow County Hospitalerum or plasma albumin/globulin mass ratioOrdered By: Edvin Casper on 16-53-4381Lkgbnkh/Globulin [Mass ratio]Serum or plasma albumin/globulin mass ratioMorrow County Hospitalerum or plasma anion gap determination Ordered By: Edvin Casper on 45-35-0150Aaqrs gap [Moles/Vol]Serum or plasma anion gap determination6.0-15.0M[facility] County Hospitalerum or plasma iron binding capacity measurement (mass/volume)Ordered By: Edvin Casper on 63-33-1603Bczh binding capacity [Mass/Vol]Iron binding capacity [Mass/volume] in Serum or Nfrgmk270-200RlmrfxccmMorrow County Hospitalerum or plasma iron saturation measurement (mass fraction)Ordered By: Edvin Casper on 31-94-7060Mtco saturation [Mass fraction]Iron saturation [Mass Fraction] in Serum or ByjmrtXhi95-30TbhscdbqgMorrow County Hospitalerum or plasma total cholesterol/high density lipoprotein (HDL) cholesterol mass rat Ordered By: Edvin Casper on 69-00-0787Dpoyuwzwkuv.total/Cholesterol in HDL [Mass ratio]Serum or plasma total cholesterol/high density lipoprotein (HDL) cholesterol mass rat<5.0M[facility] County Hospitalodium [Moles/volume] in Serum or PlasmaOrdered By: Edvin Casper on 94-52-4838Vdvjhg [Moles/Vol]Sodium [Moles/volume] in Serum or Lsdkoa252-838KhqxnufkrMercy Health Anderson HospitalThyroid Stim Hormone w/Rflxon 49-04-0023Tzuqkfe Stim Hormone w/Rflx1.17 u[iU]/mLNormal0.45-5.33The [facility] Physician GroupComment on above: Order Comment: FASTING Y pt is getting an ultrasoundResult Comment: PERFORMED BY: [place] [address] PATHOLOGIST C[employer]ANT OPERATOR SANKET KIRKPATRICK M.D.Performed By: #### BMP, CBC #### [facility] [address] [place] [address] USAThyrotropin [Units/volume] in Serum or PlasmaOrdered By: Edvin Casper on 70-46-3411YXQ QnThyrotropin [Units/volume] in Serum or Plasma0.45-5.33[facility] HospitalTransferrin [Mass/volume] in Serum or PlasmaOrdered By: Edvin Casper on 94-45-2144Twjgdjdfwzp [Mass/Vol]Transferrin [Mass/volume] in Serum or Ingxbn637-136GuqzcpmtzMercy Health Anderson HospitalTriglyceride [Mass/volume] in Serum or PlasmaOrdered By: Edvin Casper on 57-45-0336Xunglroazlsg [Mass/Vol]Triglyceride [Mass/volume] in Serum or PlasmaHigh0-149[facility] HospitalComment on above:TRIG ATP III CLASSIFICATIONTRIG less than 150 mg/dL NormalTRIG 150-199 mg/dL Borderline highTRIG 200-500 mg/dL High TRIG greater than 500 mg/dL Very highStandard traceable to the Center for Disease Conrtrol and Prevention (CDC) test method.US aorta (aaa) screeningon 89-00-8012OV aorta (aaa) screening [facility] [address] [place] [address] [place], [place] [id number] Ultrasound Report Signed Patient: Diann Patel MR#: [id number] 525 : 1955 Acct:[id number] Age/Sex: 69 / F ADM Date: 02/15/25 Loc: Room: [address] [place] [address] Type: ADM INOo Attending Dr: Edvin Casper [...] Impression dictated by: Julio Cesar Erwin Jr., D.O.02/16/2025 8:26 AM Dictation Location: [place] [address] Tech: Ana Maria Rileyer Transcribed By: JOSUE 02/16/25825 Dictated By: Julio Cesar Erwin Jr, DO 02/16/25824 Signed By: 02/16/25825[facility] Physician GroupUrea nitrogen [Mass/volume] in Serum or PlasmaOrdered By: Edvin Casper on 06-35-7504Lvnn nitrogen [Mass/Vol]Urea nitrogen [Mass/volume] in Serum or PlasmaBoston Hope Medical Center-Mer[facility] Health Anderson HospitalVit. B12/Folate Profileon 17-98-6973Eeczafrtr (Vitamin B12) [Mass/Vol]831 pg/bGIqgeze539-685Lno [facility] Physician GroupComment on above:Order Comment: FASTING Y pt is getting an ultrasoundPerformed By: #### BMP, CBC #### [facility] [address] [place] [id number] UDJHxuokg43.0 ng/mLNormal>5.9The [facility] Physician Group Comment on above:Order Comment: FASTING Y pt is getting an ultrasoundResult Comment: Folate reference range: >5.9 ng/ml The WHO technical consultation on folate and vitamin b12 deficiencies has determined that folate concentrations less than 4 ng/ml are considered deficient.Performed By: #### BMP, CBC #### [facility] [address] [place] [address] USAVitamin B12 ser/plasOrdered By: Edvin Casper on 66-91-0798Dorcycamd (Vitamin B12) [Mass/Vol]Vitamin B12 ser/yxib212-908Cqjjxacam Regional Medical CenterWBC Auto (Bld) [#/Vol]Ordered By: Edvin Casper on 54-17-7473VVY (Bld) [#/Vol]Leukocytes [#/volume] in Blood by Automated count 3.8-11.6FLakeHealth Beachwood Medical CenterAlanine aminotransferase [Enzymatic activity/volume] in Serum or PlasmaOrdered By: Ross Martinez on 66-05-8405SSZ [Catalytic activity/Vol]Alanine aminotransferase [Enzymatic activity/volume] in Serum or Plasma7-52[facility] HospitalAlbumin [Mass/volume] in Serum or Plasma by Bromocresol green (BCG) dye binding methoOrdered By: Ross Martinez on 75-50-9798Uyhqzkq BCG dye [Mass/Vol]Albumin [Mass/volume] in Serum or Plasma by Bromocresol green (BCG) dye binding metho3.5-5.7FLakeHealth Beachwood Medical CenterAlkaline phosphatase [Enzymatic activity/volume] in Serum or PlasmaOrdered By: Ross Martinez on 61-87-2958BNF [Catalytic activity/Vol] Alkaline phosphatase [Enzymatic activity/volume] in Serum or Gduuth50-109 [facility] HospitalAppearance of UrineOrdered By: Ross Martinez on 57-20-3815Bmnwdyggpe (U)Urine appearanceCleMarietta Osteopathic ClinicAspartate aminotransferase [Enzymatic activity/volume] in Serum or Plasma Ordered By: Ross Martinez on 70-01-9412CCE [Catalytic activity/Vol]Aspartate aminotransferase [Enzymatic activity/volume] in Serum or Jllmho46-26DclcqjirkMercy Health Anderson HospitalB-Type Natriuretic Peptideon 25-00-5469Anshvslpylz peptide B (Bld) [Mass/Vol]278.0 pg/mLHigh5-100The [facility] Physician Group Comment on above:Result Comment: PERFORMED BY: [place] [address] PATHOLOGIST C[employer] OPERATOR SANKET KIRKPATRICK M.D.Performed By: #### BMP, CBC #### [facility] [address] [place] [address] USABasophils Auto (Bld) [#/Vol]Ordered By: Ross Martinez on 09-62-1819Qvskgrqai (Bld) [#/Vol]Automated basophil count0.0-0.2FLakeHealth Beachwood Medical CenterBasophils/100 WBC Auto (Bld)Ordered By: Ross Martinez on 45-81-2546Rcvliwqrx/100 WBC (Bld)Automated basophil %.[facility] HospitalBilirubin Test strip Ql (U)Ordered By: Ross Martinez on 44-68-0758Fgdupdvlv Ql (U)Bilirubin.total [Presence] in Urine by Test strip NegativeMercy Health Anderson HospitalBilirubin.total [Mass/volume] in Serum or PlasmaOrdered By: Ross Martinez on 67-38-3635Yqsyfmoqx [Mass/Vol] Bilirubin.total [Mass/volume] in Serum or Plasma0.3-1.0[facility] HospitalBioFire Not Detectedon 76-00-2186NowZgjy Not DetectedNot detected NormalNot DetecteThe [facility] Physician GroupComment on above:Result Comment: This is a duplicate RP2.1 COVID (PCR) result to be used for statistical tracking purpose only. PERFORMED BY: [place] [address] PATHOLOGIST C[employer] OPERATOR SANKET KIRKPATRICK M.D.Performed By: #### BMP, CBC #### [place] [address] USACOVID Cepheid NegativeOrdered By: Ross Martinez on 33-30-3130YOSX-CoV-2 (COVID-19) Ab IA QlCOVID CepheidNegativeMercy Health Anderson HospitalComment on above:This is a duplicate Cepheid Xpert Xpress CoV- 2/Flu/RSV Plus RNA by RT-PCR result to be used for statistical tracking purpose only.COVID-19 / Flu A/B / RSV PCRon 30-70-3233GPTL-CoV-2 (COVID-19) RNA KOLE+probe Ql (Unsp spec)COVID-19 Cepheid Result Negative for SARS-CoV-2 RNA by [...] or Cepheid Disclaimer revoked sooner. PERFORMED BY: [facility] [place] [address] PATHOLOGIST C[employer] PLANT OPERATOR SANKET KIRKPATRICK M.D.[facility] Physician GroupComment on above: Performed By: #### GLULS #### Point of Care testing ,COVID-19 Detected/Not DetectedOrdered By: Edvin Casper on 02-15-2025 SARS-CoV-2 (COVID-19) RNA KOLE+non-probe Ql (Nph)Not detectedNot [facility] Medical CenterComment on above:This is a duplicate RP2.1 COVID (PCR) result to be used for statistical tracking purpose only.CT abdomen pelvis w con on 61-08-1845MF abdomen pelvis w [facility] [address] [place] [address] [place] [address] Scan Report Signed Patient: Diann Patel MR#: [id number] 525 : 1955 Acct:[id number] Age/Sex: 69 / F ADM Date: 02/15/25 Loc: Room: [address] [place] [address] Type: ADM INOo Attending Dr: Edvin Casper [...] Manjula Flannery M.D.02/15/2025 4:03 PM Dictation Location: [place] [address] Transcribed By: JOSUE 02/15/25 1603 Dictated By: Manjula Flannery MD 02/15/25 1554 Signed By: 02/15/25 1603[facility] Physician GroupCalcium [Mass/volume] in Serum or PlasmaOrdered By: Ross Martinez on 82-64-4473Qrqhgqh [Mass/Vol]Calcium [Mass/volume] in Serum or Plasma8.6-10.3FLakeHealth Beachwood Medical CenterCarbon dioxide, total [Moles/volume] in Serum or PlasmaOrdered By: Ross Martinez on 09-11-7571KN0 [Moles/Vol]Carbon dioxide, total [Moles/volume] in Serum or Plasma 21.0-31.0[facility] Anderson HospitalCepheid COVID PCR Negativeon 00-54-9601SEOK-CoV-2 (COVID-19) RNA KOLE+probe Ql (Unsp spec)NegativeNormal NegativeThe [facility] Physician GroupComment on above:Result Comment: This is a duplicate CepFinanceAcarid Xpert Xpress CoV-2/Flu/RSV Plus RNA by RT-PCR result to be used for statistical tracking purpose only. PERFORMED BY: [facility] [address] [place] [address] PATHOLOGIST C[employer] OPERATOR SANKET KIRKPATRICK M.D.Performed By: #### GLULS #### Point of Care testing ,Chloride [Moles/volume] in Serum or PlasmaOrdered By: Ross Martinez on 68-80-1142Upcdbnyw [Moles/Vol]Chloride [Moles/volume] in Serum or Jpvhje58-960 [facility] HospitalColor Auto (U)Ordered By: Ross Martinez on 77-25-5737Axldk (U)Color of Urine by AutoYellowMercy Health Anderson Hospital Complete Blood Count Auto Diffon 99-73-3609Ohftiamoh (Bld) [#/Vol]0.1 10*3/uL Normal0.0-0.2The [facility] Physician GroupComment on above:Result Comment: PERFORMED BY: [facility] [place] [address] PATHOLOGIST C[employer] OPERATOR SANKET KIRKPATRICK M.D.Performed By: #### GLULS #### Point of Care testing ,Basophils/100 WBC (Bld)1.0 %Normal.The [facility] Physician GroupComment on above:Performed By: #### GLULS #### Point of Care testing ,Eosinophils (Bld) [#/Vol]0.4 10*3/uLNormal0.0-0.45The [facility] Physician [facility] Comment on above:Performed By: #### GLULS #### Point of Care testing ,Eosinophils/100 WBC (Bld)3.4 %Normal.The [facility] Physician GroupComment on above:Performed By: #### GLULS #### Point of Care testing ,Erythrocyte distribution width (RBC) [Ratio]16.6 %High11.9-15.3The [facility] Physician GroupComment on above:Performed By: #### GLULS #### Point of Care testing ,Hematocrit (Bld) [Volume fraction]26.9 %Low34.0-46.4The [facility] Physician GroupComment on above:Performed By: #### GLULS #### Point of Care testing ,Hemoglobin (Bld) [Mass/Vol]8.8 g/dLLow11.8-15.4The [facility] Brunswick [facility] Comment on above:Performed By: #### GLULS #### Point of Care testing ,Lymphocytes (Bld) [#/Vol]2.3 10*3/uLNormal1.00-4.8[facility] Comment on above:Performed By: #### GLULS #### Point of Care testing ,Lymphocytes/100 WBC (Bld)21.3 %Normal.[facility] Physician GroupComment on above:Performed By: #### GLULS #### Point of Care testing ,MCH (RBC) [Entitic mass]28.4 pcZxyzev94.7-34.3[facility] Comment on above:Performed By: #### GLULS #### Point of Care testing ,MCV (RBC) [Entitic vol]86.5 vXQalivq59-497Dre [facility]ician GroupComment on above:Performed By: #### GLULS #### Point of Care testing ,Mean Corpuscular HGB Conc32.8 g/kDRvhhha64.0-35.0[facility] Comment on above:Performed By: #### GLULS #### Point of Care testing ,Monocytes (Bld) [#/Vol]1.0 10*3/uLHigh0.0-0.8[facility] Comment on above:Performed By: #### GLULS #### Point of Care testing ,Monocytes/100 WBC (Bld)18.23 %Normal0.00-20.00[facility] Comment on above:Performed By: #### GLULS #### Point of Care testing ,Monocytes/100 WBC (Bld)9.1 %Normal.[facility] GroupComment on above:Performed By: #### GLULS #### Point of Care testing ,Neutrophils (Bld) [#/Vol]6.9 10*3/uLNormal1.8-7.7[facility] Comment on above:Performed By: #### GLULS #### Point of Care testing ,Neutrophils/100 WBC (Bld)65.2 %Normal.[facility] GroupComment on above:Performed By: #### GLULS #### Point of Care testing ,NRBC%0.0 /100{WBC}Normal0-0.5[facility]ician GroupComment on above: Performed By: #### GLULS #### Point of Care testing ,Platelet mean volume (Bld) [Entitic vol]9.2 fLNormal6.3-10.7[facility]ician GroupComment on above:Performed By: #### GLULS #### Point of Care testing ,Platelets (Bld) [#/Vol]184 10*3/uHUygiuc260-982Thp [facility] Comment on above:Performed By: #### GLULS #### Point of Care testing ,RBC (Bld) [#/Vol]3.11 10*6/uLLow3.60-5.00[facility]ician GroupComment on above:Performed By: #### GLULS #### Point of Care testing ,WBC (Bld) [#/Vol]10.6 10*3/uLNormal3.8-11.6[facility]ician GroupComment on above:Performed By: #### GLULS #### Point of Care testing ,Comprehensive Metabolic Panelon 68-29-8730Rnuljru [Mass/Vol]3.9 g/dLNormal 3.5-5.7[facility]ician GroupComment on above:Performed By: #### GLULS #### Point of Care testing ,Albumin/Globulin [Mass ratio]1.4 {ratio}NormalThe [facility] Comment on above:Performed By: #### GLULS #### Point of Care testing ,ALP [Catalytic activity/Vol]73 U/CTzajnn68-844Jhl [facility] Comment on above:Performed By: #### GLULS #### Point of Care testing ,ALT [Catalytic activity/Vol]15 U/LNormal7-52[facility] Comment on above:Performed By: #### GLULS #### Point of Care testing ,Anion gap [Moles/Vol]13.4 mmol/LNormal6.0-15.0[facility] Comment on above:Performed By: #### GLULS #### Point of Care testing ,AST [Catalytic activity/Vol]17 U/VYhqaue95-01Xot [facility] Comment on above:Performed By: #### GLULS #### Point of Care testing ,Bilirubin [Mass/Vol]0.4 mg/dLNormal0.3-1.0[facility]ician GroupComment on above:Performed By: #### GLULS #### Point of Care testing ,Calcium [Mass/Vol]9.4 mg/dLNormal8.6-10.3[facility]ician GroupComment on above:Performed By: #### GLULS #### Point of Care testing ,Chloride [Moles/Vol]98 mmol/VUchtwm47-244Kbx [facility]ician GroupComment on above:Performed By: #### GLULS #### Point of Care testing ,CO2 [Moles/Vol]25.8 mmol/AXlbzre56.0-31.0[facility] Physician GroupComment on above:Performed By: #### GLULS #### Point of Care testing ,Creatinine [Mass/Vol]1.44 mg/dLHigh0.60-1.20The [facility] Physician [facility] Comment on above:Performed By: #### GLULS #### Point of Care testing ,Creatinine Clr Calc Ryeistjq76.12NoBerger Hospital GroupComment on above:Performed By: #### GLULS #### Point of Care testing ,Estimated GFR39.128 mL/MinNoWilson Memorial HospitalComment on above: Performed By: #### GLULS #### Point of Care testing ,Globulin (S) [Mass/Vol]2.7 g/dLSt. Mary's Medical CenterComment on above:Performed By: #### GLULS #### Point of Care testing ,Glucose [Mass/Vol]371 mg/oEUgvm31-661Vtx [facility]ician [facility] HospitalComment on above:Result Comment: Random Glucose Reference Range is dependent on time and content of last meal. Glucose of more than 200 mg/dL in a nonstressed, ambulatory subject supports the diagnosis of Diabetes Mellitus. ADA recommended reference rangePerformed By: #### GLULS #### Point of Care testing ,Potassium [Moles/Vol]5.2 mmol/LHigh3.5-5.1The [facility] Physician [facility] HospitalComment on above:Performed By: #### GLULS #### Point of Care testing ,Protein [Mass/Vol]6.6 g/dLNormal6.4-8.9The [facility] Physician [facility] HospitalComment on above:Performed By: #### GLULS #### Point of Care testing ,Sodium [Moles/Vol]132 mmol/MGxd284-846Khc [facility] Physician [facility] HospitalComment on above:Performed By: #### GLULS #### Point of Care testing ,Urea nitrogen [Mass/Vol]42 mg/dLHigh7-25The [facility]ician GroupComment on above:Performed By: #### GLULS #### Point of Care testing ,Creatine Kinaseon 03-69-2068TR [Catalytic activity/Vol]61 U/QCxekai22-937Zjk [facility] Hospital Of YorkComment on above:Performed By: #### BMP, CBC #### [facility] [address] [place] [address] USACreatine kinase [Enzymatic activity/volume] in Serum or PlasmaOrdered By: Ross Martinez on 23-11-0883JS [Catalytic activity/Vol] Creatine kinase [Enzymatic activity/volume] in Serum or Cxcgvr09-083JzxqqbdkqMercy Health Anderson HospitalCreatinine [Mass/volume] in Serum or PlasmaOrdered By: Ross Martinez on 62-07-3940Tiuqhxqjwo [Mass/Vol]Creatinine [Mass/volume] in Serum or PlasmaHigh0.60-1.20[facility] Anderson HospitalECG 12 lead ECGon 67-59-2724MCC 12 lead ECGSELECT MEDICAL [facility] [place] [address] [place] [address] Electrocardiograph Report Signed Patient: Diann Patel MR#: [id number] 525 : 1955 Acct:[id number] Age/Sex: 69 / F ADM Date: 02/15/25 Loc: Room: [address] [place] [address] Type: DIS INOo Attending Dr: Edvin Casper MD Ordering Provider: Ross Martinez APRN Date of Service: 02/15/2507/04/1401 ECG/ECG 12 lead ECG: Back Pain/Injury Copies to: Test Reason : Blood Pressure : 152/67 mmHG Vent. Rate : 63 BPM Atrial Rate : 63 BPM P-R Int : 142 ms QRS Dur : 86 ms QT Int : 456 ms P-R-T Axes : 50 55 -46 degrees QTcB Int : 466 ms Normal sinus rhythm T wave abnormality, consider inferior ischemia Abnormal ECG No previous ECGs available Confirmed by EDUARDO DEAN DO ([id number]) on 02/17/2025 6:39:30 AM Referred By: Electronically Signed By: EDUARDO DEAN DO Transcribed By: MUS Signed By Eduardo Dean DO 02/17 0639[facility] GroupEosinophils Auto (Bld) [#/Vol]Ordered By: Ross Martniez on 80-68-0326Mzdvdpmsuwi (Bld) [#/Vol]Automated eosinophil count0.0-0.45[facility] Anderson HospitalEosinophils/100 WBC Auto (Bld) Ordered By: Ross Martinez on 78-22-7381Hwucdmvgcde/100 WBC (Bld)Automated eosinophil %.[facility] HospitalErythrocyte distribution width Auto (RBC) [Ratio]Ordered By: Ross Martinez on 33-95-6294Frrokgsmsle distribution width (RBC) [Ratio]Erythrocyte distribution width [Ratio] by Automated djlmcKyak35.9-15.3FLakeHealth Beachwood Medical CenterGlobulin Calc (S) [Mass/Vol]Ordered By: Ross Martinez on 14-29-0201Yyhmghhk (S) [Mass/Vol]Serum globulin measurement by calculation (mass/volume)[facility] HospitalGlucose Poct Glucometerson 85-36-2129Qxfhopm0Txm3: Cleaned MeterNoAtrium Health Kings Mountain Physician GroupComment on above:Result Comment: PERFORMED BY: [place] [id number] PATHOLOGIST [employer] OPERATOR SANKET KIRKPATRICK M.D.Performed By: #### BMP, CBC #### [facility] [address] [place] [address] USAGlucose [Mass/Vol]377 mg/dLBaptist Medical Center Physician GroupComment on above:Result Comment: Random Glucose Reference Range is dependent on time and content of last meal. Glucose of more than 200 mg/dL in a nonstressed, ambulatory subject supports the diagnosis of Diabetes Mellitus.Performed By: #### BMP, CBC #### [facility] [address] [place] [address], [place] [address] USAGlucose [Mass/volume] in Serum or PlasmaOrdered By: Ross Martinez on 08-50-5221Nqzcslq [Mass/Vol]Glucose [Mass/volume] in Serum or PirpnkNkae75-405EdyfetsanMercy Health Anderson HospitalComment on above:ADA recommended reference rangeRandom Glucose Reference Range is dependent on time and content of last meal. Glucose of more than 200 mg/dL in a nonstressed, ambulatory subject supports the diagnosisof Diabetes Mellitus.Glucose [Mass/volume] in Urine by Test stripOrdered By: Ross Martinez on 02-15-2025 Glucose Test strip (U) [Mass/Vol]Glucose [Mass/volume] in Urine by Test strip HighNormalMercy Health Anderson HospitalHematocrit Auto (Bld) [Volume fraction]Ordered By: Ross Martinez on 82-10-3300Lsmxdvpehi (Bld) [Volume fraction]Hematocrit [Volume Fraction] of Blood by Automated kqikdHlm79.0-46.4 [facility] HospitalHemoglobin Test strip Ql (U)Ordered By: Ross Martinez on 20-93-9633Icqshnuouq Ql (U)Hemoglobin [Presence] in Urine by Test stripNegOhioHealth Nelsonville Health CenterHemoglobin [Mass/volume] in Blood Ordered By: Ross Martinez 63-41-3105Wyjodhdavq (Bld) [Mass/Vol]Hemoglobin [Mass/volume] in AvzjoZrh60.8-15.4FLakeHealth Beachwood Medical CenterKetones Test strip Ql (U)Ordered By: Ross Martinez on 41-29-2506Pzepjqh Ql (U)Ketones [Presence] in Urine by Test stripNegOhioHealth Nelsonville Health Center Leukocyte esterase [Presence] in Urine by Test stripOrdered By: Ross Martinez on 05-32-3680Tmimbmhex esterase Test strip Ql (U)Leukocyte esterase [Presence] in Urine by Test stripSelect Medical Specialty Hospital - ColumbusLeukocytes [#/volume] corrected for nucleated erythrocytes in Blood by Automated coun Ordered By: Ross Martinez on 71-85-4028OIM corrected for nucl RBC Auto (Bld) [#/Vol]Leukocytes [#/volume] corrected for nucleated erythrocytes in Blood by Automated coun3.8-11.6FLakeHealth Beachwood Medical CenterLipaseon 01-54-3712Lqcgvw [Catalytic activity/Vol]41.0 U/VCcrgjz60.0-82.0The [facility] Comment on above:Result Comment: PERFORMED BY: [facility] [place] [address] PATHOLOGIST [employer] OPERATOR SANKET KIRKPATRICK M.D.Performed By: #### GLULS #### Point of Care testing ,Lipase [Enzymatic activity/volume] in Serum or PlasmaOrdered By: Ross Martinez on 98-30-5438Mhceww [Catalytic activity/Vol]Lipase [Enzymatic activity/volume] in Serum or Hpbawy09.0-82.0[facility] Anderson HospitalLymphocytes Auto (Bld) [#/Vol]Ordered By: Ross Martinez on 48-84-3657Vyszogwxdxl (Bld) [#/Vol] Lymphocytes [#/volume] in Blood by Automated count1.00-4.8[facility] Anderson HospitalLymphocytes/100 WBC Auto (Bld)Ordered By: Ross Martinez on 19-48-6456Txwexupkftv/100 WBC (Bld)Lymphocytes/100 leukocytes in Blood by Automated count.[facility] Anderson HospitalMCH Auto (RBC) [Entitic mass] Ordered By: Ross Martinez on 71-41-2106LQI (RBC) [Entitic mass]MCH [Entitic mass] by Automated count24.7-34.3FLakeHealth Beachwood Medical CenterMCHC Auto (RBC) [Mass/Vol]Ordered By: Ross Martinez on 19-11-8413SBIZ (RBC) [Mass/Vol] MCHC [Mass/volume] by Automated count32.0-35.0[facility] MCV Auto (RBC) [Entitic vol]Ordered By: Ross Martinez on 19-72-2038OJJ (RBC) [Entitic vol]MCV [Entitic volume] by Automated sgijh18-238GttwithraMercy Health Anderson HospitalMonocyte distribution width [Entitic volume] in Blood by Automated Ordered By: Ross Martinez on 48-52-8967Cdsdepno distribution width Auto (Bld) [Entitic vol]Monocyte distribution width [Entitic volume] in Blood by Automated 0.00-20.00[facility] Anderson HospitalMonocytes Auto (Bld) [#/Vol]Ordered By: Ross Martinez on 23-16-7823Spexidjmb (Bld) [#/Vol]Automated blood monocyte countHigh0.0-0.8[facility] HospitalMonocytes/100 WBC Auto (Bld) Ordered By: Ross Martinez on 05-18-1095Qnowsjwdc/100 WBC (Bld)Automated monocyte %.[facility] HospitalNatriuretic peptide B [Mass/Vol] Ordered By: Ross Martinez on 74-22-0830Ssirkgeblle peptide B (Bld) [Mass/Vol] BNP ser/plasHigh5-100Mer[facility] Anderson HospitalNeutrophils Auto (Bld) [#/Vol]Ordered By: Ross Martinez on 86-93-2057Ofksfcxvyjt (Bld) [#/Vol] Neutrophils [#/volume] in Blood by Automated count1.8-7.7FLakeHealth Beachwood Medical CenterNeutrophils/100 WBC Auto (Bld)Ordered By: Ross Martinez on 16-34-1968Llnhvreiqvm/100 WBC (Bld)Automated neutrophil %.[facility] HospitalNitrite Test strip Ql (U)Ordered By: Ross Martinez on 02-15-2025 Nitrite Ql (U)Nitrite [Presence] in Urine by Test stripNegativeMercy Health Anderson HospitalNo Panel InformationOrdered By: Ross Martinez on 46-29-7828Uemuywqem GFR (CKD-EPI)39.128 mL/MinMercy Health Anderson Hospital Pharmacy Creatinine Clearance (Chem36.12[facility] Nucleated erythrocytes [Presence] in Blood by Automated countOrdered By: Ross Martinez on 25-50-3442Vxgsldmap RBC Auto Ql (Bld)Nucleated erythrocytes [Presence] in Blood by Automated count0-0.5FLakeHealth Beachwood Medical Center Ophthalmic OCT panelon 49-45-5542IDULNortheast Regional Medical Center Eye Images reviewed and comparison made to baseline, Images reviewed. To assess optic nerve function and for use in future follow-up. Reliability: poor. Left Eye Images reviewed and comparison made to baseline, Images reviewed. To assess optic nerve function and for use in future follow-up. Reliability: good and adequate. Notes Good nerve fiber layer (NFL) thickness both eyes (OU). Stable.[facility] HealthcareRadiology Study observation (narrative)[facility] HealthcareOptical coherence tomography study reporton 88-05-7240FOEVWake Forest Baptist [facility] Radiology Study observation (narrative)[facility] HealthcarePlatelet mean volume Auto (Bld) [Entitic vol]Ordered By: Ross Martinez on 10-87-2080Yotfbssv mean volume (Bld) [Entitic vol]Platelet mean volume [Entitic volume] in Blood by Automated count6.3-10.7FLakeHealth Beachwood Medical CenterPlatelets Auto (Bld) [#/Vol] Ordered By: Ross Martinez on 52-36-5232Utkdhhldt (Bld) [#/Vol]Platelets [#/volume] in Blood by Automated cufqd697-698LevadrcpsMercy Health Anderson Hospital Potassium [Moles/volume] in Serum or PlasmaOrdered By: Ross Martinez on 55-57-3777Qxhajdaaq [Moles/Vol]Potassium [Moles/volume] in Serum or PlasmaHigh 3.5-5.1FLakeHealth Beachwood Medical CenterProtein Test strip (U) [Mass/Vol]Ordered By: Ross Martinez on 33-21-0860Qjaalln (U) [Mass/Vol]Protein [Mass/volume] in Urine by Test stripNegativeMercy Health Anderson HospitalProtein [Mass/volume] in Serum or PlasmaOrdered By: Ross Martinez on 12-68-9765Bbjtohz [Mass/Vol]Protein [Mass/volume] in Serum or Plasma6.4-8.9[facility] Anderson HospitalRBC Auto (Bld) [#/Vol]Ordered By: Ross Martinez on 89-18-8624CSU (Bld) [#/Vol]Erythrocytes [#/volume] in Blood by Automated countLow3.60-5.00 [facility] HospitalRespiratory (Upper) Panel, PCRon 02-15-2025 Respiratory (Upper) Panel, PCRAdenovirus Not detected Bordetella parapertussis Not detected Chlamydia [...] Influenza A H3 Blank Space PERFORMED BY: [place] [address] PATHOLOGIST [employer] OPERATOR SANKET KIRKPATRICK M.D.[facility] Physician GroupComment on above: Performed By: #### BMP, CBC #### [address]Respiratory pathogens DNA and RNA panel - Nasopharynx by KOLE with non-probe detectionOrdered By: Edvin Casper on 02-15-2025 Respiratory pathogens DNA and RNA panel KOLE+non-probe (Nph)Respiratory pathogens DNA and RNA panel - Nasopharynx by KOLE with non-probe detectionMercy Health Anderson HospitalRespiratory specimen influenza A virus, influenza B virus, respiratory syncytical virOrdered By: Ross Martinez on 02-15-2025 SARS-CoV-2 (COVID-19) RNA KOLE+probe Ql (Unsp spec)Respiratory specimen influenza A virus, influenza B virus, respiratory syncytical virMorrow County Hospitalerum or plasma albumin/globulin mass ratioOrdered By: Ross Martinez on 09-75-5322Advjpab/Globulin [Mass ratio]Serum or plasma albumin/globulin mass ratioMorrow County Hospitalerum or plasma anion gap determinationOrdered By: Ross Martinez on 50-07-3607Tuifl gap [Moles/Vol]Serum or plasma anion gap determination6.0-15.0Morrow County Hospitalodium [Moles/volume] in Serum or PlasmaOrdered By: Ross Martinez on 86-06-8709Hcjclr [Moles/Vol]Sodium [Moles/volume] in Serum or PlasmaLow 136-145Morrow County Hospitalpecific gravity Test strip (U) [Rel density]Ordered By: Ross Martinez on 87-24-0612Bqefjfaq gravity (U) [Rel density]Specific gravity of Urine by Test stripHigh1.001-1.030[facility] HospitalTroponin I High Sensitivityon 06-95-2567Xxdxplbx I High Eaegbggjowz27Tvcnss1-09Gun [facility] Physician GroupComment on above:Result Comment: The Troponin units of report have been changed to meet the Chest Pain Accreditation requirement, element EC5.M1l2. Troponin units are changed from pg/ml to ng/L. Also, the decimal is removed and results are in whole numbers. PERFORMED BY: [place] [address] PATHOLOGIST [employer] OPERATOR SANKET KIRKPATRICK M.D.Performed By: #### BMP, CBC #### [place] [address] USATroponin I.cardiac [Mass/volume] in Serum or Plasma by Detection limit <= 0.01 ng/Ordered By: Ross Martinez on 47-50-9638Lypxhgfb I.cardiac DL <= 0.01 ng/mL [Mass/Vol]Troponin I.cardiac [Mass/volume] in Serum or Plasma by Detection limit <= 0.01 ng/0-15[facility] Comment on above:The Troponin units of report have been changed to meet the Chest Pain Accreditation requirement, element EC5.M1l2. Troponin units are changed from pg/ml to ng/L. Also, the decimal is removed and results are in whole numbers.Urea nitrogen [Mass/volume] in Serum or PlasmaOrdered By: Ross Martinez on 25-49-9920Qwmx nitrogen [Mass/Vol]Urea nitrogen [Mass/volume] in Serum or PlasmaPocahontas Memorial Hospital7-25[facility] HospitalUrinalysison 02-15-2025 Appearance (U)ClearNormalClearHca Florida Poinciana Hospital Physician GroupComment on above: Order Comment: Name Collection Type:: Clean-Voided MidstreamPerformed By: #### GLULS #### Point of Care testing ,Bilirubin,UrineNegativeNormalNegativeHca Florida Poinciana Hospital Physician GroupComment on above:Order Comment: Name Collection Type:: Clean-Voided MidstreamPerformed By: #### GLULS #### Point of Care testing ,Color (U)YellowNormalYellowHca Florida Poinciana Hospital Physician GroupComment on above:Order Comment: Name Collection Type:: Clean-Voided MidstreamPerformed By: #### GLULS #### Point of Care testing ,Glucose Ql (U)150 mg/dLChrist Hospital Physician GroupComment on above: Order Comment: Name Collection Type:: Clean-Voided MidstreamPerformed By: #### GLULS #### Point of Care testing ,Ketones Ql (U)NegativeNormalNegativeHca Florida Poinc[facility] Hospital Physician GroupComment on above:Order Comment: Name Collection Type:: Clean-Voided MidstreamPerformed By: #### GLULS #### Point of Care testing ,Leukocyte esterase Test strip Ql (U)NegativeNormalNegHealthmark Regional Medical Center Physician GroupComment on above:Order Comment: Name Collection Type:: Clean- Voided MidstreamPerformed By: #### GLULS #### Point of Care testing ,Nitrite,UrineNegativeNormalNegativeHca Florida [facility] Hospital Physician GroupComment on above:Order Comment: Name Collection Type:: Clean-Voided MidstreamPerformed By: #### GLULS #### Point of Care testing ,Occult Blood,UrineNegativeNormalNegativeHca Florida Poinc[facility] Hospital Physician GroupComment on above:Order Comment: Name Collection Type:: Clean-Voided MidstreamResult Comment: PERFORMED BY: [facility] [place] [address] PATHOLOGIST [employer] OPERATOR SANKET KIRKPATRICK M.D.Performed By: #### GLULS #### Point of Care testing ,pH (U)5.0 [pH]Normal5.0-9.0The [facility] Physician GroupComment on above:Order Comment: Name Collection Type:: Clean-Voided MidstreamPerformed By: #### GLULS #### Point of Care testing ,Protein,UrineNegativeNormalNegativeThe [facility] Physician GroupComment on above:Order Comment: Name Collection Type:: Clean-Voided MidstreamPerformed By: #### GLULS #### Point of Care testing ,Specificy [place],Urine1.742Awzs4.001-1.030The [facility] Physician GroupComment on above:Order Comment: Name Collection Type:: Clean-Voided MidstreamPerformed By: #### GLULS #### Point of Care testing ,Urobilinogen,UrineNormalNormalNormalThe [facility] Physician GroupComment on above:Order Comment: Name Collection Type:: Clean-Voided MidstreamPerformed By: #### GLULS #### Point of Care testing ,Urobilinogen Test strip (U) [Mass/Vol]Ordered By: Ross Martinez on 02-15-2025 Urobilinogen (U) [Mass/Vol]Urobilinogen [Mass/volume] in Urine by Test strip [facility] HospitalWBC Auto (Bld) [#/Vol]Ordered By: Ross Martinez on 35-13-3495FVU (Bld) [#/Vol]Leukocytes [#/volume] in Blood by Automated count3.8-11.6FLakeHealth Beachwood Medical CenterX-ray reportOrdered By: Julio Cesar Erwin on 94-66-0238Qwwvd [facility] [place] [address] XRay Report Signed Patient: Diann Patel MR#: [id number] : 1955 Acct:[id number] Age/Sex: 69 / F ADM Date: 5 Loc: ER Room: Type: [facility] ER Attending Dr: Copies to: Ross Martinez APRN~ Ordering Provider: Ross Martinez APRN Date of Service: 02/15/25 XR/XR chest 2V*: Back Pain/Injury Chest 2 views CLINICAL HISTORY: Back spasms for one day. COMPARISON: None FINDINGS: Aortic valve replacement. Cardiomegaly. No lung consolidation or pneumothorax. No pleural effusion.No free air. XR/XR chest 2V* IMPRESSION: CARDIOMEGALY WITHOUT ACUTE PROCESS. Impression dictated by: Julio Cesar Erwin Jr., D.O.02/15/2025 3:39 PM Dictation Location: RADIO-PC-22 Transcribed By: JOSUE 02/15/251538 Dictated By: Julio Cesar Erwin Jr, DO 02/15/251537 Signed By: 02/15/25 153 [facility] HospitalXR chest 2V*on 69-22-0849TP chest 2V*[facility] [place] [address] XRay Report Signed Patient: Diann Patle MR#: [id number] 525 : 1955 Acct:[id number] Age/Sex: 69 / F ADM Date: 02/15/25 Loc: ER Room: Type: [facility] ER Attending Dr: Copies to: Ross Martinez [...] Dictation Location: RADIO-PC-22 Transcribed By: JOSUE 02/15/25 153 Dictated By: Julio Cesar Erwin Jr, DO 02/15/251537 Signed By: 02/15/[address] [place] [address] Physician [facility] HospitalpH Test strip (U)Ordered By: Ross Martinez on 03-78-7528nP (U)pH of Urine by Test strip5.0-9.0[facility] HospitalHbA1c (Bld) [Mass fraction]on 98-83-5280Fjpqtreithxvyi and review of laboratory resultsAbnormalCrittenton Behavioral Health HealthcareLaboratory - Hematology and Cell countson 05-37-4111TnW9e (Bld) [Mass fraction]9.1 %[facility] HealthcareOffice Visiton 21-13-1642Thuzjz-up [id number] Diann Patel 1955 F Date Provider Department Center 12/20/2024 VALENTE BALTAZAR CARD [facility] Family History Problem Relation Age of Onset Diabetes Mother Cancer Mother Heart disease Father Alcohol abuse Brother Diabetes Brother Family Status - Relation Status Age at Mother Father Brother Level of Service:73574 [place] OFFICE/OUTPATIENT ESTABLISHED MOD [facility])on 18-21-8747UODT HDL RATIO3.6NOMT HealthcareComment on above:3.3 - 4.4 LOW RISK 4.4 - 7.1 AVERAGE RISK 7.1 - 11.0 MODERATE RISK >11.0 HIGH RISK Cholesterol [Mass/Vol]160 mg/dLNINF - 200 mg/dLNOMT HealthcareCholesterol in HDL [Mass/Vol]44 mg/dL40 - 60 mg/dLNOMT HealthcareComment on above:> or =60 mg/dl - LOW CARDIOVASCULAR RISK <40 mg/dl - HIGH CARDIOVASCULAR RISK Magnesium [Mass/Vol]59 mg/dLNOMT HealthcareComment on above:<100 mg/dl OPTIMAL 100-129 mg/dl NEAR OR ABOVE OPTIMAL 130-159 mg/dl BORDERLINE HIGH 160-189 mg/dl HIGH >190 mg/dl VERY HIGH Magnesium [Mass/Vol]57.4 mg/dLNOMT HealthcareTriglyceride [Mass/Vol]287 mg/dL HighNINF - 150 mg/dLNOMT HealthcareCCF CMP (CMP) (FOR REMOTE [facility] USE)on 03-81-2696Kyeuqpf [Mass/Vol]3.5 g/dL3.4 - 5.0 g/dLNOMT HealthcareALBUMIN GLOBULIN RATIO1.1NOMS HealthcareALP [Catalytic activity/Vol]84 U/L46 - 116 U/L [facility] HealthcareALT [Catalytic activity/Vol]22 U/L14 - 59 U/LNOMS HealthcareAnion gap [Moles/Vol]11.1 mmol/LNOMS HealthcareAST [Catalytic activity/Vol]14 U/LLow15 - 37 U/LNOMS HealthcareBilirubin [Mass/Vol]0.3 mg/dL0.2 - 1.0 mg/dLNOMS HealthcareCalcium [Mass/Vol]9 mg/dL8.5 - 10.1 mg/dLNOMS HealthcareChloride [Moles/Vol]105 mmol/L98 - 107 mmol/LNOMS HealthcareCO2 [Moles/Vol]30.9 mmol/L 21.0 - 32.0 mmol/LNOMS HealthcareCreatinine [Mass/Vol]1.12 mg/dLHigh0.55 - 1.02 mg/dLNOMS HealthcareGFR/1.73 sq M.predicted CKD-EPI (S/P/Bld) [Vol rate/Area]58 Low>=60 mL/min/1.73m 2NOMS HealthcareGlobulin (S) [Mass/Vol]3.3 g/dLNOMS HealthcareGlucose [Mass/Vol]174 mg/cJTufy06 - 106 mg/dLNOMS HealthcarePotassium [Moles/Vol]5 mmol/L3.5 - 5.1 mmol/LNOMS HealthcareProtein [Mass/Vol]6.8 g/dL6.4 - 8.2 g/dLNOMS HealthcareSodium [Moles/Vol]142 mmol/L136 - 145 mmol/LNOMS HealthcareTBH EGFR-NON AF CZEQVPKU05Whx>=60 mL/min/1.73m 2NOMS HealthcareUrea nitrogen [Mass/Vol]19 mg/dLHigh7.0 - 18.0 mg/dLNOMT HealthcareUrea nitrogen/Creatinine [Mass ratio]17 mg/mgNOSoutheast Missouri Community Treatment CenterNo Panel Informationon 41-62-9657Kyrfobuhliunsv and review of laboratory resultsAbUP [facility] CLINISYNCBarton County Memorial HospitalLaboratory - Hematology and Cell countson 09-22-2024 HbA1c (Bld) [Mass fraction]9.5 %[facility] HospitalNo Panel Informationon 09-22-2024 Interpretation and review of laboratory resultsAbnoMUSC Health Fairfield Emergency HealthcareOffice Visiton 43-85-2950Pkqcqf-up [id number] Diann Patel 1955 F Date Provider Department Center 08/18/2024 Nayeli-CARMELLA ALLEN [facility] Family History Problem Relation Age of Onset Diabetes Mother Cancer Mother Heart disease Father Alcohol abuse Brother Diabetes Brother Family Status - Relation Status Age at Mother Father Brother Level of Service:73180 [place] OFFICE/OUTPATIENT ESTABLISHED MOD MDM 30 MIN Reason for Visit and Comments: Coronary Artery Disease [187] Atrial Fibrillation [80] Valve Disorder [3372] Peripheral Vascular Disease [458]NormalHolzer Health System US ANKLE BRACHIAL INDEX (BRIDGER) WITHOUT EXERCISEon 64-59-3436CUAZ US ANKLE BRACHIAL INDEX (BRIDGER) WITHOUT EXERCISESylvia [place] [address] and Vascular Lab Report [facility] US ANKLE BRACHIAL INDEX (BRIDGER) WITHOUT EXERCISE Patient Name: DIANN AMANDA Reading Physician: [id number] Nury Blackwell MD, RPVI Study Date: 07/20/2024 Ordering Physician: [id number] SOSA MRN/PID: [id number] Technologist: Chanda Martinez T Technologist 2: Date of /Age: 8 1955 / 69 years Gender: F Admission Status: Outpatient Location Performed: [facility] Diagnosis/ICD: Peripheral vascular disease, unspecified-I73.9 CPT Codes: 23268 Peripheral artery BRIDGER Only CONCLUSIONS: Right Lower [...] Left Brachial Pressure 175 mmHg 184 mmHg [id number] Nury Blackwell MD, RPVI Final [facility]US [facility]Orbit - bilateralon 56-43-0543Fmpcwmmgj: Cataract both eyes (OU) Testing Indication: Performed for preop measurements in the determination of an intraocular lens (IOL) for both eyes (OU) Test Reliability: Good quality both eyes (OU) Interpretation: Good measurements for intraocular lens (IOL) calculation purposes. Calculation made for both eyes (OU).[facility] Radiology Study observation (narrative)[facility] HospitalACT Coag (Bld)on 16-81-3670Znuslqpuwppobb and review of laboratory resultsAbPremier Health Upper Valley Medical CenterInterpretation and review of laboratory resultsAbPremier Health Upper Valley Medical CenterInterpretation and review of laboratory resultsAbCleveland Clinic Hillcrest HospitalInterpretation and review of laboratory resultsAbShelby Memorial HospitalInterpretation and review of laboratory results [facility] ACTIVATED CLOTTING TIME LOWon 98-16-7286SGY Coag (Bld)282 [facility] on above:Target ACT range will vary based on the patient population, clinical status, and surgical intervention occurring. ACT Coag (Bld)234 [facility] on above:Target ACT range will vary based on the patient population, clinical status, and surgical intervention occurring. ACT Coag (Bld)271 [facility] on above:Target ACT range will vary based on the patient population, clinical status, and surgical intervention occurring. ACT Coag (Bld)316 [facility] on above:Target ACT range will vary based on the patient population, clinical status, and surgical intervention occurring. ACT Coag (Bld)334 [facility] above:Target ACT range will vary based on the patient population, clinical status, and surgical intervention occurring. Activated clotting timeon 18-60-0986RID Coag (Bld)282 [address]Comment on above:Result Comment: Target ACT range will vary based on the patient population, clinical status, and surgical intervention occurring.Performed By: #### 3184-9 #### MOHIT CORTEZMOTZER L ([id number]) [facility] ([facility]) [address] [place], [place] [address]HZH Coag (Bld)234 [address]Commymichigan medical center west branch on above:Result Comment: Target ACT range will vary based on the patient population, clinical status, and surgical intervention occurring.Performed By: #### 3184-9 #### MOHIT SCHMOTZER L ([id number]) [facility] ([facility]) [address] [place], [place] [address]RNX Coag (Bld)271 [address]Comment on above:Result Comment: Target ACT range will vary based on the patient population, clinical status, and surgical intervention occurring.Performed By: #### 3184-9 #### MOHIT SCHMOTZER L ([id number]) [facility] ([facility]) [address] [place], [place] [address]SKE Coag (Bld)316 [address]Comment on above:Result Comment: Target ACT range will vary based on the patient population, clinical status, and surgical intervention occurring.Performed By: #### 3184-9 #### MOHIT SCHMOTZER L ([id number]) [facility] ([facility]) [address] [place], [place] [address]XLS Coag (Bld)334 [address]Commymichigan medical center west branch on above:Result Comment: Target ACT range will vary based on the patient population, clinical status, and surgical intervention occurring.Performed By: #### 3184-9 #### MOHIT SCHMOTZER L ([id number]) [facility] ([facility]) [address] [place], [place] [address]UXORYDOK VASCULAR PROCEDUREon 06-21-2024 [facility], Coin Machine Assembler, [id number] [place] [id number] Cardiovascular Catheterization Report Patient Name: DIANN PATEL Performing Physician: [id number] Curry MD Study Date: 06/21/2024 Verifying Physician: [id number] Curry MD MRN/PID: [id number] Accredited Farm Manager/Co-scrub: Ordering Physician: [id number] MARGARETH Meka JOHNASHERLEANA Date of /Age: 8 1955 / 68 years Fellow: [id number] Braeden Colin MD Gender: F Fellow: Study: Peripheral Intervention Procedure Description: After infiltration with 2% Lidocaine utilizing two-dimensional ultrasound and fluoroscopic guidance, the right femoral artery was cannulated with a Micro- Access Kit using a modified Seldinger technique. Subsequently a 5 Stateless sheath was placed contralateral in the right femoral artery. The arterial sheath was sized up to 6 Stateless. After completion of the procedure, A 6/7F Vascade Closure System was placed per protocol. Following routine access via the right TRUCK DRIVER HELPER, we crossed up and over into the left iliac system usingWholey wire and IM catheter. We exchanged the 5F IM catheter into a 5F MP catheter that was placed in the left popliteal artery for more selective images of BTK vessels. Angiogram views were obtainedfor diagnostic purposes prior to intervention. Left Lower [...] Posterior Tibial Artery: Entire PT is a MASTER TECHNICIAN. Left Peroneal Artery: The left peroneal artery revealed no evidence of significant disease. Left Dorsalis Pedis Artery: Mid distal DP is a MASTER TECHNICIAN. Peripheral Interventions: We exchanged the short right TRUCK DRIVER HELPER sheath into a 6F 45 cm Jose sheath. We crossed into the distal PTusing Command wire. We performed multiple runs of the entire left SFA [except for the stent segement] and proximal popliteal using M hawk device, followed by SUPERVISOR ELECTROLYTIC TINNING and DCB. Percutaneous peripheral intervention of the entire left superficial femoral artery and proximal popliteal . The vessel was dilated using a compliant 5.0 mm x 200 mm balloon, followed by a IN.PACT DCB5.0 mm x 250 mm balloon, and a IN.PACT DCB 5.0 mm x 200 mm balloon. The stenosis was successfully reduced from 95% to <10%. Hemo Personnel: + +---------+ Name Duty + +---------+ Nely Curry MD, MD 1 + +---------+ Hemodynamic Pressures: +----+ + + + +---------+ Site Date Time Phase Name Systolic mmHg Diastolic mmHg Mean mmHg +----+ + + + +---------+ AO 06/21/2024 2:47:52 PM Rest 121 45 71 +----+ + + + +---------+ LFA 06/21/2024 3:02:24 PM Rest 94 46 64 +----+ + + + +---------+ Complications: No in-lab complications observed. Cardiac Cath Post Procedure Notes: Post Procedure Diagnosis: See below. Blood Loss: Estimated blood loss during the procedure was 5 mls. Specimens Removed: Number of specimen(s) removed: none. ____ CONCLUSIONS: 1. LLE severe claudication and CLI [place] class V: Patient status post successful revascularization using directional atherectomy_PTA_DCB to entire left SFA and popliteal with good results. 2. Continue home Plavix, resume home Eliquis tomorrow. 3. Follow-up in the clinic in 4 wee (more content not included)...UHRadiology, Radiologist, MD - 06/21/2024 [facility], Coin Machine [employer]sembler, [address] [place] [address] Cardiovascular Catheterization Report Patient Name: DIANN PATEL Performing Physician: [id number] Curry MD Study Date: 06/21/2024 Verifying Physician: Tatum Curry MD MRN/PID: [id number] Accredited Farm Manager/Co-scrub: Ordering Physician: [id number] MARGARETH ESCAMILLA Date of /Age: 8 1955 / 68 years Fellow: [id number] Braeden Colin MD Gender: F Fellow: Study: Peripheral Intervention Procedure Description: After infiltration with 2% Lidocaine utilizing two-dimensional ultrasound and fluoroscopic guidance, the right femoral artery was cannulated with a Micro- Access Kit using a modified Seldinger technique. Subsequently a 5 Stateless sheath was placed contralateral in the right femoral artery. The arterial sheath was sized up to 6 Stateless. After completion of the procedure, A 6/7F Vascade Closure System was placed per protocol. Following routine access via the right TRUCK DRIVER HELPER, we crossed up and over into the left iliac system usingWholey wire and IM catheter. We exchanged the 5F IM catheter into a 5F MP catheter that was placed in the left popliteal artery for more selective images of BTK vessels. Angiogram views were obtainedfor diagnostic purposes prior to intervention. Left Lower [...] Posterior Tibial Artery: Entire PT is a MASTER TECHNICIAN. Left Peroneal Artery: The left peroneal artery revealed no evidence of significant disease. Left Dorsalis Pedis Artery: Mid distal DP is a MASTER TECHNICIAN. Peripheral Interventions: We exchanged the short right TRUCK DRIVER HELPER sheath into a 6F 45 cm Jose sheath. We crossed into the distal PTusing Command wire. We performed multiple runs of the entire left SFA [except for the stent segement] and proximal popliteal using M hawk device, followed by SUPERVISOR ELECTROLYTIC TINNING and DCB. Percutaneous peripheral intervention of the entire left superficial femoral artery and proximal popliteal . The vessel was dilated using a compliant 5.0 mm x 200 mm balloon, followed by a IN.PACT DCB5.0 mm x 250 mm balloon, and a IN.PACT DCB 5.0 mm x 200 mm balloon. The stenosis was successfully reduced from 95% to <10%. Hemo Personnel: + +---------+ Name Duty + +---------+ Nely Curry MD, MD 1 + +---------+ Hemodynamic Pressures: +----+ + + + +-------- -+ Site Date Time Phase Name Systolic mmHg Diastolic mmHg Mean mmHg +----+ + + + +-------- -+ AO 06/21/2024 2:47:52 PM Rest 121 45 71 +----+ + + + +-------- -+ LFA 06/21/2024 3:02:24 PM Rest 94 46 64 +----+ + + + +-------- -+ Complications: No in-lab complications observed. [...] BRIDGER/TBI. If medial malleolus wound does not heal,then may consider PT intervention. ICD 10 Codes: Atherosclerosis of [place] arteries of extremities with intermittent claudication, left leg-I70.212;Atherosclerosis of [place]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 with ulceration of other part of foot-I70.245 CPT Codes: Angiography, Each 1st additional vessel studied after (more content not included)...NOMS HealthcareINVASIVE VASCULAR PROCEDURESaint Francis Medical Center, Coin Machine [employer]sembler, [address] [place] [address] Cardiovascular Catheterization Report Patient Name: DIANN PATEL Performing Physician: [id number] Curry MD Study Date: 06/21/2024 Verifying Physician: [id number] Curry MD MRN/PID: [id number] Accredited Farm Manager/Co-scrub: Ordering Physician: [id number] MARGARETH ESCAMILLA Date of /Age: 8 1955 / 68 years Fellow: [id number] Braeden Colin MD Gender: F Fellow: Study: Peripheral Intervention Procedure Description: After infiltration with 2% Lidocaine utilizing two-dimensional ultrasound and fluoroscopic guidance, the right femoral artery was cannulated with a Micro- Access Kit using a modified Seldinger technique. Subsequently a 5 Stateless sheath was placed contralateral in the right femoral artery. The arterial sheath was sized up to 6 Stateless. After completion of the procedure, A 6/7F Vascade Closure System was placed per protocol. Following routine access via the right TRUCK DRIVER HELPER, we crossed up and over into the left iliac system usingWholey wire and IM catheter. We exchanged the 5F IM catheter into a 5F MP catheter that was placed in the left popliteal artery for more selective images of BTK vessels. Angiogram views were obtainedfor diagnostic purposes prior to intervention. Left Lower [...] Posterior Tibial Artery: Entire PT is a MASTER TECHNICIAN. Left Peroneal Artery: The left peroneal artery revealed no evidence of significant disease. Left Dorsalis Pedis Artery: Mid distal DP is a MASTER TECHNICIAN. Peripheral Interventions: We exchanged the short right TRUCK DRIVER HELPER sheath into a 6F 45 cm Jose sheath. We crossed into the distal PTusing Command wire. We performed multiple runs of the entire left SFA [except for the stent segement] and proximal popliteal using M hawk device, followed by SUPERVISOR ELECTROLYTIC TINNING and DCB. Percutaneous peripheral intervention of the entire left superficial femoral artery and proximal popliteal . The vessel was dilated using a compliant 5.0 mm x 200 mm balloon, followed by a IN.PACT DCB5.0 mm x 250 mm balloon, and a IN.PACT DCB 5.0 mm x 200 mm balloon. The stenosis was successfully reduced from 95% to <10%. Hemo Personnel: + +---------+ Name Duty + +---------+ Nely Curry MD, MD 1 + +---------+ Hemodynamic Pressures: +----+ + + + +---------+ Site Date Time Phase Name Systolic mmHg Diastolic mmHg Mean mmHg +----+ + + + +---------+ AO 06/21/2024 2:47:52 PM Rest 121 45 71 +----+ + + + +---------+ LFA 06/21/2024 3:02:24 PM Rest 94 46 64 +----+ + + + +---------+ Complications: No in-lab complications observed. Cardiac Cath Post Procedure Notes: Post Procedure Diagnosis: See below. Blood Loss: Estimated blood loss during the procedure was 5 mls. Specimens Removed: Number of specimen(s) removed: none. ____ CONCLUSIONS: 1. LLE severe claudication and CLI [place] class V: Patient status post successful revascularization using directional atherectomy_PTA_DCB to entire left SFA and popliteal with good results. 2. Continue home Plavix, resume home Eliquis tomorrow. 3. Follow-up in the clinic in 4 weeks with repeat BRIDGER/TBI. If medial malleolus wound does not heal,then may consider PT intervention. ICD 10 Codes: Atherosclerosis of [place] arteries of extremities with intermittent claudication, left leg-I70.212;Atherosclerosis of [place]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 with ulceration of other part of foot-I70.245 CPT Codes: Angiography, Each 1st additional vessel studied after basic exam-90351; Angiography, Extremity,uni,S&I (PER)-45684; Ultrasound guidance for vascular access-95946; Revasc Fem/Po (more content not included)...[facility] HospitalRad[facility] Study observation (narrative)NOMS HealthcareINVASIVE VASCULAR PROCEDUREOrdered By: Radiologist Radiology on [id number] Funding Options Work Phone: Invasive vascular procedureon 06-21-2024 [facility], Coin Machine Assembler, [address] [place] [address] Cardiovascular Catheterization Report Patient Name: DIANN PATEL Performing Physician: [id number] Curry MD Study Date: 06/21/2024 Verifying Physician: [id number] Curry MD MRN/PID: [id number] Accredited Farm Manager/Co-scrub: Ordering Physician: [id number] MARGARETH ESCAMILLA Date of /Age: 8 1955 / 68 years Fellow: [id number] Braeden Colin MD Gender: F Fellow: Study: Peripheral Intervention Procedure Description: After infiltration with 2% Lidocaine utilizing two-dimensional ultrasound and fluoroscopic guidance, the right femoral artery was cannulated with a Micro- Access Kit using a modified Seldinger technique. Subsequently a 5 Stateless sheath was placed contralateral in the right femoral artery. The arterial sheath was sized up to 6 Stateless. After completion of the procedure, A 6/7F Vascade Closure System was placed per protocol. Following routine access via the right TRUCK DRIVER HELPER, we crossed up and over into the left iliac system usingWholey wire and IM catheter. We exchanged the 5F IM catheter into a 5F MP catheter that was placed in the left popliteal artery for more selective images of BTK vessels. Angiogram views were obtainedfor diagnostic purposes prior to intervention. Left Lower [...] Posterior Tibial Artery: Entire PT is a MASTER TECHNICIAN. Left Peroneal Artery: The left peroneal artery revealed no evidence of significant disease. Left Dorsalis Pedis Artery: Mid distal DP is a MASTER TECHNICIAN. Peripheral Interventions: We exchanged the short right TRUCK DRIVER HELPER sheath into a 6F 45 cm Jose sheath. We crossed into the distal PTusing Command wire. We performed multiple runs of the entire left SFA [except for the stent segement] and proximal popliteal using M hawk device, followed by SUPERVISOR ELECTROLYTIC TINNING and DCB. Percutaneous peripheral intervention of the entire left superficial femoral artery and proximal popliteal . The vessel was dilated using a compliant 5.0 mm x 200 mm balloon, followed by a IN.PACT DCB5.0 mm x 250 mm balloon, and a IN.PACT DCB 5.0 mm x 200 mm balloon. The stenosis was successfully reduced from 95% to <10%. Hemo Personnel: + +---------+ Name Duty + +---------+ Nely Curry MD, MD 1 + +---------+ Hemodynamic Pressures: +----+ + + + +---------+ Site Date Time Phase Name Systolic mmHg Diastolic mmHg Mean mmHg +----+ + + + +---------+ AO 06/21/2024 2:47:52 PM Rest 121 45 71 +----+ + + + +---------+ LFA 06/21/2024 3:02:24 PM Rest 94 46 64 +----+ + + + +---------+ Complications: No in-lab complications observed. Cardiac Cath Post Procedure Notes: Post Procedure Diagnosis: See below. Blood Loss: Estimated blood loss during the procedure was 5 mls. Specimens Removed: Number of specimen(s) removed: none. ____ CONCLUSIONS: 1. LLE severe claudication and CLI [place] class V: Patient status post successful revascularization using directional atherectomy_PTA_DCB to entire left SFA and popliteal with good results. 2. Continue home Plavix, resume home Eliquis tomorrow. 3. Follow-up in the clinic in 4 wee (more content not included)...Nely Hoffman MD - 06/21/2024 [facility], Coin Machine Assembler, [address] [place] [address] Cardiovascular Catheterization Report Patient Name: DIANN PATEL Performing Physician: [id number] Curry MD Study Date: 06/21/2024 Verifying Physician: [id number] Curry MD MRN/PID: [id number] Accredited Farm Manager/Co-scrub: Ordering Physician: [id number] MARGARETH ESCAMILLA Date of /Age: 8 1955 / 68 years Fellow: [id number] Braeden Colin MD Gender: F Fellow: Study: Peripheral Intervention Procedure Description: After infiltration with 2% Lidocaine utilizing two-dimensional ultrasound and fluoroscopic guidance, the right femoral artery was cannulated with a Micro- Access Kit using a modified Seldinger technique. Subsequently a 5 Stateless sheath was placed contralateral in the right femoral artery. The arterial sheath was sized up to 6 Stateless. After completion of the procedure, A 6/7F Vascade Closure System was placed per protocol. Following routine access via the right TRUCK DRIVER HELPER, we crossed up and over into the left iliac system usingWholey wire and IM catheter. We exchanged the 5F IM catheter into a 5F MP catheter that was placed in the left popliteal artery for more selective images of BTK vessels. Angiogram views were obtainedfor diagnostic purposes prior to intervention. Left Lower [...] Posterior Tibial Artery: Entire PT is a MASTER TECHNICIAN. Left Peroneal Artery: The left peroneal artery revealed no evidence of significant disease. Left Dorsalis Pedis Artery: Mid distal DP is a MASTER TECHNICIAN. Peripheral Interventions: We exchanged the short right TRUCK DRIVER HELPER sheath into a 6F 45 cm Jose sheath. We crossed into the distal PTusing Command wire. We performed multiple runs of the entire left SFA [except for the stent segement] and proximal popliteal using M hawk device, followed by SUPERVISOR ELECTROLYTIC TINNING and DCB. Percutaneous peripheral intervention of the entire left superficial femoral artery and proximal popliteal . The vessel was dilated using a compliant 5.0 mm x 200 mm balloon, followed by a IN.PACT DCB5.0 mm x 250 mm balloon, and a IN.PACT DCB 5.0 mm x 200 mm balloon. The stenosis was successfully reduced from 95% to <10%. Hemo Personnel: + +---------+ Name Duty + +---------+ Nely Curry MD, MD 1 + +---------+ Hemodynamic Pressures: +----+ + + + +-------- -+ Site Date Time Phase Name Systolic mmHg Diastolic mmHg Mean mmHg +----+ + + + +-------- -+ AO 06/21/2024 2:47:52 PM Rest 121 45 71 +----+ + + + +-------- -+ LFA 06/21/2024 3:02:24 PM Rest 94 46 64 +----+ + + + +-------- -+ Complications: No in-lab complications observed. Cardiac Cath Post Procedure Notes: Post Procedure Diagnosis: See below. Blood Loss: Estimated blood loss during the procedure was 5 mls. Specimens Removed: Number of specimen(s) removed: none. CONCLUSIONS: 1. LLE severe claudication and CLI [place] class V: Patient status post successful revascularization using directional atherectomy_PTA_DCB to entire left SFA and popliteal with good results. 2. Continue home Plavix, resume home Eliquis tomorrow. 3. Follow-up in the clinic in 4 weeks with repeat BRIDGER/TBI. If medial malleolus wound does not heal,then may consider PT intervention. ICD 10 Codes: Atherosclerosis of eastern [place] arteries of extremities with intermittent claudication, left leg-I70.212;Atherosclerosis of eastern [place]rokee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 with ulceration of other part of foot-I70.245 CPT Codes: Angiography, Each 1st additional vessel studied after basic exa (more content not included)...[facility] Work Phone: [facility] Work Phone: Radiology Study observation (narrative)[facility] Work Phone: US.doppler Extremity arteries - bilateral for physiologic artery study at rest and with exerciseon 06-16-2024 [place] [address] and Vascular Lab Report VASC US PVR WITHOUT EXERCISE Patient Name: DIANN AMANDA Reading Physician: [id number] Christine Beyer MD Study Date: 06/15/2024 Ordering Physician: [id number] MICHEAL NOVA MRN/PID: [id number] Technologist: Miles Costello RVT Technologist 2: Date of /Age: 8 1955 / 68 years Gender: F Admission Status: Outpatient Location Performed: [facility] Diagnosis/ICD: Peripheral vascular disease, unspecified-I73.9 CPT Codes: 96164 Peripheral artery PVR (multi segmental pressure CRITICAL RESULT Critical Result: Severe PAD in left leg. Notification called to MICHEAL NOVA APRN-LESLEY on 06/15/2024 at 10:50:00 AM by Miles [...] Left Brachial Pressure 171 mmHg 163 mmHg [id number] Christine Beyer MD Final Radiology, Radiologist, MD - 06/16/2024 [place] [address] and Vascular Lab Report VASC US PVR WITHOUT EXERCISE Patient Name: DIANN PATEL Reading Physician: [id number] Christine Beyer MD Study Date: 06/15/2024 Ordering Physician: [id number] NOVA MRN/PID: [id number] Technologist: Miles Costello RVT Technologist 2: Date of /Age: 8 1955 / 68 years Gender: F Admission Status: Outpatient Location Performed: [facility] Diagnosis/ICD: Peripheral vascular disease, unspecified-I73.9 CPT Codes: 03001 Peripheral artery PVR (multi segmental pressure CRITICAL RESULT Critical Result: Severe PAD in left leg. Notification called to MICHEAL NOVA APRN-CORPORATE PLANNER on 06/15/2024 at 10:50:00 AM by Miles [...] Left Brachial Pressure 171 mmHg 163 mmHg [id number] Christine Beyer MD Final [facility].doppler Extremity arteries - bilateral for physiologic artery study at rest and with exerciseOrdered By: Radiologist Radiology on 06-16-2024 [facility] [employer] Work Phone: cBC panel Auto (Bld)on 89-77-6303Wmmbomwtpis distribution width (RBC) [Ratio]14.6 %High11.5 - 14.5 %[facility] HospitalHematocrit (Bld) [Volume fraction]35.8 %Low36.0 - 46.0 %[facility] HospitalHemoglobin (Bld) [Mass/Vol]11.9 g/dLLow12.0 - 16.0 g/dL [facility] HospitalInterpretation and review of laboratory results AbnormalUnTrinity Health System West Campus (RBC) [Entitic mass]27.7 pg26.0 - 34.0 pgUnAdena Pike Medical Center (RBC) [Mass/Vol]33.2 g/dL32.0 - 36.0 g/dLUnParis Regional Medical Center ClevelandMCV (RBC) [Entitic vol]83 fL80 - 100 fLUniSelect Medical Specialty Hospital - CincinnatiNucleated RBC/100 WBC (Bld) [Ratio]0.0 % [facility] HospitalPlatelets (Bld) [#/Vol]211 10*3/[facility] HospitalRBC (Bld) [#/Vol]4.30 10*6/[facility] HospitalWBC (Bld) [#/Vol]13.3 10*3/[facility] Community HospitalErythrocyte distribution width (RBC) [Ratio] 14.6 %High11.5-14.5UnFayette County Memorial HospitalComment on above:Performed By: #### 53886-8 #### MOHIT Car (01919) [facility] ([facility]) [address] [place] [address] 71962Yctsvurmjb (Bld) [Volume fraction]35.8 %Low36.0-46.0 [facility], IncComment on above:Performed By: #### 22115-0 #### MOHIT Car (58309) [facility] ([facility]) [address] [place] [address] 78128Rlbpdgvzlz (Bld) [Mass/Vol]11.9 g/dLLow12.0-16.0UnFayette County Memorial HospitalComment on above:Performed By: #### 99712-0 #### MOHIT Car (40390) [facility] ([facility]) [address] [place] [address] 99427XRC (RBC) [Entitic mass]27.7 kmFknkfs24.0-34.0UnFayette County Memorial HospitalComment on above:Performed By: #### 83655-9 #### MOHIT Car (02476) [facility] ([facility]) [address] [place] [address] 45579GKMZ (RBC) [Mass/Vol]33.2 g/qSCiwbcn97.0-36.0UnFayette County Memorial HospitalComment on above:Performed By: #### 42790-1 #### MOHIT Car (18985) [facility] ([facility]) [address] [place], [place] [address]NLC (RBC) [Entitic vol]83 vNUkegra40-547CpnaclhdgkFayette County Memorial HospitalComment on above:Performed By: #### 79700-0 #### MOHIT Car (59341) [facility] ([facility]) [address] [place], [place] [address]Xclgipouu RBC/100 WBC (Bld) [Ratio]0.0 /100 WBCsNormal0.0-0.0 [facility], IncComment on above:Performed By: #### 47513-3 #### MOHIT Car (10717) [facility] ([facility]) [address] [place] [address] 450[address]Nwloqzzpr (Bld) [#/Vol]211 x10*3/mMHkevsp717-564KjpibkmsqvFayette County Memorial HospitalComment on above:Performed By: #### 32468-0 #### MOHIT Car (64024) [facility] ([facility]) [address] [place], [place] [address]YEY (Bld) [#/Vol]4.30 x10*6/uLNormal4.00-5.20UnFayette County Memorial HospitalComment on above:Performed By: #### 60781-5 #### MOHIT Car (58613) [facility] ([facility]) [address] [place] [address]31[address]ROQ (Bld) [#/Vol]13.3 x10*3/uLHigh4.4-11.3[facility], IncComment on above:Performed By: #### 19978-7 #### MOHIT Car (51115) [facility] ([facility]) [address] [place] [address] 76207Rbldeehfdqx tissue factor inducedon 42-84-4367HS Coag (PPP) [Time]12.6 sNormal9.8-12.8UnFayette County Memorial HospitalComment on above:Performed By: #### 5902-2 #### MOHIT Car (13339) [facility] ([facility]) [address] [place], [place] [address]EH Coag (PPP) [Time]on 56-75-4259VRI Coag (PPP) [Relative time]1.1 {INR}0.9 - 1.1UnGeorgetown Behavioral HospitalInterpretation and review of laboratory resultsNormalUniSelect Medical Specialty Hospital - CincinnatiUnGeorgetown Behavioral HospitalINR Coag (PPP) [Relative time]1.0Touqow7.9-1.1UnFayette County Memorial HospitalComment on above:Performed By: #### 5902-2 #### MOHIT Car (93052) [facility] ([facility]) [address] [place], [place] [address]Yciqikf-YJHfb 31-13-9068GY Coag (PPP) [Time]12.6 Pomerene HospitalRenal function 2000 panelon 18-76-2844Zpybgqw BCP dye [Mass/Vol]4.7 g/dL3.4 - 5.0 g/dLUnGeorgetown Behavioral HospitalAnion gap [Moles/Vol]14 mmol/L10 - 20 mmol/[facility] HospitalCalcium [Mass/Vol]9.8 mg/dL8.6 - 10.6 mg/dLUnGeorgetown Behavioral HospitalChloride [Moles/Vol]104 mmol/L98 - 107 mmol/[facility]wood HospitalCO2 [Moles/Vol]25 mmol/L21 - 32 mmol/[facility] HospitalCreatinine [Mass/Vol]1.36 mg/dLHigh0.50 - 1.05 mg/dLUnGeorgetown Behavioral Hospital GFR/1.73 sq M.predicted among non-blacks MDRD (S/P/Bld) [Vol rate/Area]42 mL/min/{1.73_m2}Low PINFUniSelect Medical Specialty Hospital - CincinnatiComment on above: Calculations of estimated GFR are performed using the 2020 CKD-EPI Study Refit equation without therace variable for the IDMS-Traceable creatinine methods. https://jasn.asnjournals.org/content//ASN.5227250368 Glucose [Mass/Vol]205 mg/zNYllj92 - 99 mg/dLUnGeorgetown Behavioral Hospital Interpretation and review of laboratory resultsAbnoalUniSelect Medical Specialty Hospital - CincinnatiPhosphate [Mass/Vol]4.1 mg/dL2.5 - 4.9 mg/dLMercy Health Anderson HospitalComment on above:The performance characteristics of phosphorus testing in heparinized plasma have been validated by the individual laboratory site where testing is performed. Testing on heparinized plasma is not approved by the FDA; however, such approval is not necessary.Potassium [Moles/Vol]5.5 mmol/L High3.5 - 5.3 mmol/Parkwood HospitalSodium [Moles/Vol]137 mmol/L136 - 145 mmol/[facility]wood HospitalUrea nitrogen [Mass/Vol] 53 mg/dLHigh6 - 23 mg/dLUnGeorgetown Behavioral HospitalUnGeorgetown Behavioral HospitalAlbumin BCP dye [Mass/Vol]4.7 g/dLNormal3.4-5.0UnFayette County Memorial HospitalComment on above:Performed By: #### 46152-6 #### MOHIT Car (96517) [facility] ([facility]) [address] [place] [address] 423[address]Mpfjf gap [Moles/Vol]14 mmol/FTetclr70-26IlwlqqxohjFayette County Memorial HospitalComment on above:Performed By: #### 23591-0 #### MOHIT Car (81607) [facility] ([facility]) [address] [place] [address]Qotldxy [Mass/Vol]9.8 mg/dLNormal8.6-10.6UnFayette County Memorial HospitalComment on above:Performed By: #### 97100-1 #### MOHIT Car (17080) [facility] ([facility]) [address] [place] [address] 69[address]Qcxgsyqo [Moles/Vol]104 mmol/WPxnycl61-794HupzlgrkcfFayette County Memorial HospitalComment on above:Performed By: #### 85133-6 #### MOHIT Car (87808) [facility] ([facility]) [address] [place], [place] [address]MN5 [Moles/Vol]25 mmol/ABevrac09-55VyrywniupnFayette County Memorial HospitalComment on above:Performed By: #### 40247-0 #### MOHIT Car (95581) [facility] ([facility]) [address] [place], [place] [address]Emeltyhrum [Mass/Vol]1.36 mg/dLHigh0.50-1.05UnFayette County Memorial HospitalComment on above:Performed By: #### 08467-0 #### MOHIT Car (40368) [facility] ([facility]) [address] [place] [address] 65[address]Jymvkbbivv filtration rate/1.73 sq M. mL/min/1.73m*2Low>60UnFayette County Memorial HospitalComment on above:Result Comment: Calculations of estimated GFR are performed using the 2020 CKD-EPI Study Refit equation without the race variable for the IDMS-Traceable creatinine methods. https://jasn.asnjournals.org/content//ASN.0917037893Dcuddxayj By: #### 57962-3 #### MOHIT Car (65780) [facility] ([facility]) [address] [place], [place] [address]Evznxwa [Mass/Vol]205 mg/bSDkci78-27DgkjfcrzlvFayette County Memorial HospitalComment on above:Performed By: #### 88377-5 #### MOHIT Car (31460) [facility] ([facility]) [address] [place] [address] 634[address]Vmauywmrm [Mass/Vol]4.1 mg/dLNormal2.5-4.9UnFayette County Memorial HospitalComment on above:Result Comment: The performance characteristics of phosphorus testing in heparinized plasma have bee n validated by the individual laboratory site where testing is performed. Testing on heparinizedplasma is not approved by the FDA; however, such approval is not necessary.Performed By: #### 39925-1 #### MOHIT Car (02508) [facility] ([facility]) [address] [place], [place] [address]Wodrwtqwd [Moles/Vol]5.5 mmol/LHigh3.5-5.3[facility], IncComment on above:Performed By: #### 04804-2 #### MOHIT Car (82808) [facility] ([facility]) [address] [place] [address] 44[address]Edtysf [Moles/Vol]137 mmol/HIwetne193-088VgowekhejzFayette County Memorial HospitalComment on above:Performed By: #### 16066-1 #### MOHIT Car (76840) [facility] ([facility]) [address] [place] [address] 416[address]Nubq nitrogen [Mass/Vol]53 mg/dLHigh6-23[facility], IncComment on above:Performed By: #### 02822-6 #### MOHIT Car (92475) [facility] ([facility]) [address] [place] [address] 6[address]GJ.doppler Extremity arteries - bilateral for physiologic artery study at rest and with exerciseon 83-73-4259Uwqjjwsjw Study observation (narrative)[facility] US PVR WITH EXERCISEon 95-97-9286WZUN US PVR WITH EXERCISE[address] [address] and Vascular Lab Report [facility] US PVR WITHOUT EXERCISE Patient Name: DIANN Raines Physician: [id number] Christine Beyer MD Study Date: 06/15/2024 Ordering Physician: [id number] MICHEAL NOVA MRN/PID: [id number] Technologist: Miles Costello RVT Technologist 2: Date of /Age: 8 1955 / 68 years Gender: F Admission Status: Outpatient Location Performed: [facility] Diagnosis/ICD: Peripheral vascular disease, unspecified-I73.9 CPT Codes: 23181 Peripheral artery PVR (multi segmental pressure CRITICAL [...] Left Brachial Pressure 171 mmHg 163 mmHg 77763 Christine Beyer MD Final [facility] HospitalCreatinine [Mass/volume] in Serum or PlasmaOrdered By: Rodrigo Yousif on 05-19-2024 Creatinine [Mass/Vol]0.98 mg/dL0.60-1.20[facility] HospitalNo Panel InformationOrdered By: Rodrigo Yousif on 02-88-9789Cnknrtukr GFR (CKD-EPI)> 60.0 mL/MinMercy Health Anderson HospitalPharmacy Creatinine Clearance (Chem51.32[facility] HospitalUrea nitrogen [Mass/volume] in Serum or PlasmaOrdered By: Rodrigo Yousif on 97-71-7606Lilh nitrogen [Mass/Vol]40 mg/dLBaker Memorial HospitalMorrow County HospitalEGMENTAL BLOOD PRESSUREon 92-72-9391Vx[address] [address] Cardiology Report Signed Patient: DIANN PATEL MR#: [id number] : 1955 Acct:[id number] Age/Sex: 68 / F ADM Date: 12/03/23 Loc: CARD Attending Dr: ALEXIS GILMORE Ordering Physician: ALEXIS GILMORE Date of Service: 12/03/23 Procedure(s): CA segmental UE or LE LIZETH Accession Number(s): [id number] cc: CHAMP BELL ; ALEXIS GILMORE [facility] Test Date: 2023-12-03 Pat Name: DIANN PATEL Department: Room: - Gender: Female Psychiatric Nursing Assistant: RUSH MC : 1955 Requested By: ALEXIS GILMORE Order Number: [id number] Reading MD: LIZETTE MCGHEE Interpretive Statements Monophasic doppler waveform PVR waveform with delayed upstroke, blunted amplitude and loss of dicrotic notch in Left>right extremity Right: - significant pressure gradient between the thigh and calf cuff - significant pressure gradient between the calf and DP cuff - abnormal BRIDGER and TBI Left: - significant pressure gradient between the brachial and thigh cuff - absent readings of DP and PT indices of the LLE Impression: - elevated right thigh index, consistent with calcified, noncompressible arterial toussaint, which may underestimate the degree of arterial disease present. 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 (right BRIDGER 0.59) - significant left inflow (femoral artery or above) arterial disease with severe, limb threatening hemodynamic impairment of the left lower extremity at rest. (left BRIDGER 0) Electronically Signed On 12-04-2023 7:27:04 EST by LIZETTE MCGHEE Dictated By: Lizette Mcghee D.O. Signed By: 12/04/23 0727 12/04/23 0727 DD/ 1346 TD/TT: Producer Arborist Manager:JULIOHRadiology, Radiologist, - 12/04/2023 [place] [address] Cardiology Report Signed Patient: DIANN PATEL MR#: [id number] : 1955 Acct:[id number] Age/Sex: 68 / F ADM Date: 12/03/23 Loc: CARD Attending Dr: ALEXIS GILMORE Ordering Physician: ALEXIS GILMORE Date of Service: 12/03/23 Procedure(s): CA segmental UE or LE LIZETH Accession Number(s): [id number] cc: CHAMP BELL ; ALEXIS GILMORE [facility] Test Date: 2023-12-03 Pat Name: DIANN PATEL Department: Room: - Gender: Female Psychiatric Nursing Assistant: RUSH MC : 1955 Requested By: ALEXIS GILMORE Order Number: [id number] Reading MD: LZIETTE MCGHEE Interpretive Statements Monophasic doppler waveform PVR waveform with delayed upstroke, blunted amplitude and loss of dicrotic notch in Left>right extremity Right: - significant pressure gradient between the thigh and calf cuff - significant pressure gradient between the calf and DP cuff - abnormal BRIDGER and TBI Left: - significant pressure gradient between the brachial and thigh cuff - absent readings of DP and PT indices of the LLE Impression: - elevated right thigh index, consistent with calcified, noncompressible arterial toussaint, which may underestimate the degree of arterial disease present. 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 (right BRIDGER 0.59) - significant left inflow (femoral artery or above) arterial disease with severe, limb threatening hemodynamic impairment of the left lower extremity at rest. (left BRIDGER 0) Electronically Signed On 12-04-2023 7:27:04 EST by LIZETTE MCGHEE Dictated By: Lizette Mcghee D.O. Signed By: 12/04/23 0727 12/04/23 0727 DD/ 1346 TD/TT: Producer Arborist Manager: PRIYANKA PerdomoSEGMENTAL BLOOD PRESSUREOrdered By: Radiologist Radiology on 62-67-4353N[employer] Work Phone: SEGMENTAL BLOOD PRESSUREon 77-70-0462Vedwslegq Study observation (narrative)[facility] HealthcareCT STROKE HEAD WOon 48-75-4075WM STROKE HEAD WOHEAD CT WITHOUT CONTRAST: 01/31/2023 12:10 PM EDT [...] Electronically authenticated by: CHANTAL KILLIAN Date: 2023-01-31 12:44[facility] CenterCreatinine and Glomerular filtration rate.predicted panel (S/P/Bld)Ordered By: Geo Mathew on 97-30-6034Ognunismxy [Mass/Vol]1.75 mg/dL0.44-1.03[facility] HospitalEstimated glomerular filtration rate (GFR) non- AmericanOrdered By: Geo Mathew on 01-13-2023 GFR/1.73 sq M.predicted among non-blacks MDRD (S/P/Bld) [Vol rate/Area]29 mL/Min [facility] HospitalNo Panel InformationOrdered By: Geo Mathew on 12-05-6656Ubanvxiej GFR ()35 mL/MinMercy Health Anderson HospitalComment on above:GFR estimated reference range: According to KDOQI guidelines, <60 ml/min/1.73m2 is sufficient todiagnose a patient with chronic kidney disease.Pharmacy Creatinine Clearance (Chem27.91[facility] HospitalUrea nitrogen [Mass/volume] in Serum or PlasmaOrdered By: Geo Mathew on 01-99-1209Njit nitrogen [Mass/Vol]48 mg/dL9-[facility] HospitalALBUMINon 37-99-8225Gdzwpod [Mass/Vol]3.5 g/dLNormal 3.4-5.0The [facility] SouthComment on above:Performed By: #### BMP, PREALB, ALB ####[facility] [address] [place] [address]Dr. Sruthi LariosC AUTO DIFFon 25-67-3788AVLH #0.0 103/ulNormal0.0-0.1The [facility] SouthComment on above:Performed By: #### CBC #### [facility] [address] [address] [address] rSuthi ArechigaBasophils/100 WBC (Bld)0.5 %Normal0.2-2.0The [facility] Comment on above:Performed By: #### CBC #### [facility] [address] [address] [address] Sruthi Shields #0.3 103/ulNormal0.0-0.7The [facility] SouthComment on above: Performed By: #### CBC #### [facility] [address] [address] [address] Sruthi Joyosinophils/100 WBC (Bld)3.6 %Normal0.9-7.0The [facility] Comment on above:Performed By: #### CBC #### [facility] [address] [address] [address] Sruthi Joyrythrocyte distribution width (RBC) [Ratio]14.5 %Ddrkcl72.0-15.0 The [facility] SouthComment on above:Performed By: #### CBC #### [facility] [address] [address] [address] Sruthi ArechigaHematocrit (Bld) [Volume fraction]37.7 %Muaivm12.0-48.0The [facility] SouthComment on above:Performed By: #### CBC #### [facility] [address] [address] [address] Sruthi ArechigaHemoglobin (Bld) [Mass/Vol]11.9 g/dLCritically low12.0-16.0[facility] on above:Performed By: #### CBC #### [facility] [address] [address] [address] Sruthi Conklin #0.02 10e3/ulNormal0.00-0.03[facility] on above:Performed By: #### CBC #### [facility] [address] [place] [address] Dr. Sruthi Conklin %0.2 %Normal0.0-0.5[facility] on above: Performed By: #### CBC #### [facility] [address] [place] [address] Dr. Sruthi Serrano #2.7 103/ulNormal1.2-3.8[facility] on above:Performed By: #### CBC #### [facility] [address] [place] [address] Dr. Sruthi Tijerinahocytes/100 WBC (Bld)32.2 %Vfvuoz59.5-60.0[facility] on above:Performed By: #### CBC #### [facility] [address] [place] [address] Dr. Sruthi ToscanoUAL DIFF REQNONormalThe [facility] on above: Performed By: #### CBC #### [facility] [address] [place] [address] Dr. Sruthi Torres (RBC) [Entitic mass]26.8 bgFrtads47.7-34.0[facility] on above:Performed By: #### CBC #### [facility] [address] [place] [address] Dr. Sruthi Torres (RBC) [Mass/Vol]31.6 g/kKQuhczs23.9-35.2The [facility] on above:Performed By: #### CBC #### [facility] [address] [place] [address] Dr. Sruthi Torres (RBC) [Entitic vol]84.9 iHXwsrda41.0-99.0The [facility] HospitalComment on above:Performed By: #### CBC #### [facility] [address] [address] [address] Sruthi Valladares #0.8 103/ulNormal0.3-0.8The [facility] SouthComment on above:Performed By: #### CBC #### [facility] [address] [address] [address] Sruthi Alegriaocytes/100 WBC (Bld)9.6 %Normal1.7-12.0The [facility] Comment on above:Performed By: #### CBC #### [facility] [address] [place] [address] Dr. Sruthi Carl #4.5 103/ulNormal1.4-6.5The [facility] SouthComment on above:Performed By: #### CBC #### [facility] [address] [place] [address] Dr. Sruthi Gomezutrophils/100 WBC (Bld)53.9 %Puoxxa00.0-75.0The [facility] SouthComment on above:Performed By: #### CBC #### [facility] [address] [place] [address] Dr. Sruthi Flores mean volume (Bld) [Entitic vol]10.8 fLNormal9.5-13.5The [facility] SouthComment on above:Performed By: #### CBC #### [facility] [address] [place] [address] Dr. Sruthi ArechigaPLT246 103/xhNejovn985-445Hob [facility] SouthComment on above: Performed By: #### CBC #### [facility] [address] [place] [address] Dr. Sruthi ArechigaRBC4.44 106/ulNormal4.20-5.40The [facility] SouthComment on above:Performed By: #### CBC #### [facility] [address] [place] [address] Dr. Sruthi ArechigaWBC8.4 103/ulNormal4.0-11.0The [facility] SouthComment on above: Performed By: #### CBC #### [facility] [address] [address] [address] Sruthi Choevid-19 PCR ([facility])on 28-18-4137UJOZ-CoV-2 (COVID-19) RNA KOLE+probe Ql (Unsp spec)Not detectedNormalNOT DETECTEDSelect [facility] Comment on above:Result Comment: This test is not yet approved or cleared by the [place] FDA. When there are no FDA-approved or cleared tests available, and other criteria are met, FDA can make tests available under an emergency access mechanism called an Emergency Use Authorization (EUA). The EUA for this test is supported by the [place] of Health and Human Service's (HHS's) declaration that circumstances exist to justify the emergency use of in vitro diagnostics for the detection and/or diagnosis of the virus that causes COVID- 19. This EUA will remain in effect (meaning [...] of clinical signs and symptoms consistent with SARS-CoV-2.Performed By: #### CVDTBH #### [facility] Laboratory [address] [place] [address] Dr. Sruthi ArechigaGLYCOHEMOGLOBIN A1Con [id number] RECOMMENDATIONSEE BELOWNormal The [facility] SouthCommymichigan [facility] on above:Result Comment: ADA RECOMMENDED LIMIT 4.0 - 6.0 ADA THERAPEUTIC TARGET < 7.0 ACTION SUGGESTED > 7.0Performed By: #### HSTROPN #### [facility] Laboratory [address] [place] [address] Dr. Sruthi ArechigaGlucose [Mass/Vol]255 mg/dLNormalThHenry County Hospital on above:Performed By: #### HSTROPN #### [facility] Laboratory [address] [place] [address] Dr. Sruthi ArechigaHbA1c (Bld) [Mass fraction]10.5 %Critically high4.5-6.2The [facility] SouthComment on above:Performed By: #### HSTROPN #### [facility] Laboratory [address] [address] [address] Sruthi CEJA #1on [id number] NARES #1Culture Observations: NO GROWTH OF MRSA AT 48 HOURS.NormalThe Douglass HospitalComment on above: Performed By: #### MRSAN1 ####[facility] [address] [place], [place] [address]Dr. Sruthi ChangPREALBUMINon 06-68-4523Kuhcvkgiow [Mass/Vol]23.6 mg/uOTsbyhi79.9-45.5The [facility] SouthComment on above: Performed By: #### BMP, PREALB, ALB ####[facility] Eph[address] [place], [place] [address]Dr. Sruthi ChangPROF CHEM 8 (BAS METB)on 50-31-4662Sxjwc gap [Moles/Vol]11.2 mmol/LNormalThe [facility]lass HospitalComment on above:Performed By: #### BMP, PREALB, ALB ####[facility] Jrmbfuwyxi[address] [place], [place] [address]Dr. Sruthi ChangCalcium [Mass/Vol]9.1 mg/dL Normal8.5-10.1The [facility] SouthComment on above:Performed By: #### BMP, PREALB, ALB ####[facility] Y[address] [place], [place] [address]Dr. Yilan ChangChloride [Moles/Vol]105 mmol/KIntuia02-792Pri [facility] SouthComment on above:Performed By: #### BMP, PREALB, ALB ####[facility] Lirnzgidsp[address] [place], [place] [address]Dr. Kamalalan ChangCO2 [Moles/Vol]26.3 mmol/MIhkyfr40.0-32.0The [facility] SouthComment on above: Performed By: #### BMP, PREALB, ALB ####[facility] Ztoimlaxf[address] [place], [place] [address]Dr. Yilan ChangCreatinine [Mass/Vol]0.72 mg/dL Normal0.55-1.02The [facility] SouthComment on above:Performed By: #### BMP, PREALB, ALB ####[facility] [address] [address]Dr. Yilan ChangEGFR-AF MALIAN>60Normal>=60The [facility] SouthComment on above:Performed By: #### BMP, PREALB, ALB ####[facility] [address] [address]Dr. Yilan ChangEGFR-NON AF MALIAN>60Normal >=60The [facility] SouthComment on above:Performed By: #### BMP, PREALB, ALB ####[facility] [address] [address]Dr. Yilan ChangGlucose [Mass/Vol]119 mg/dLCritically dqiu43-922Nyw [facility] Comment on above:Performed By: #### BMP, PREALB, ALB ####[facility] Mycioraduj[address] [place], [place] [address]Dr. Yilan ChangPotassium [Moles/Vol]4.5 mmol/LNormal3.5-5.1The [facility] SouthComment on above: Performed By: #### BMP, PREALB, ALB ####[facility] [address] [address]Dr. Yilan ChangSodium [Moles/Vol]138 mmol/LNormal 136-145The [facility] SouthComment on above:Performed By: #### BMP, PREALB, ALB ####[facility] [address] [address]Dr. Yilan ChangUrea nitrogen [Mass/Vol]18.0 mg/dLNormal7.0-18.0The [facility] Comment on above:Performed By: #### BMP, PREALB, ALB ####[facility] [address] [address]Dr. Yilan ChangUrea nitrogen/Creatinine [Mass ratio]25.0 mg/mgNormalThe [facility] SouthComment on above:Performed By: #### BMP, PREALB, ALB ####[facility] [address] [address]Dr. Sruthi ArechigaCovid-19 PCR (CVDTB)on 62-50-9948BZUK-CoV-2 (COVID-19) RNA KOLE+probe Ql (Unsp spec)Not detectedNormal NOT DETECTEDThe [facility] Luther[facility] Hospitalment on above:Result Comment: When diagnostic testing is negative, the possibility of a false negative should be c onsidered in the context of a patient's recent [...] for this test is supported by the [employer] of Health and Human Service's declaration that circumstances exist to justify the emergency use of in vitro diagnostics for the detection and/or diagnosis of the virus that causes COVID-19. This EUA will remain in effect for the duration of the COVID-19 declaration justifying emergency of IVDs, unless it is terminated or revoked by the FDA (after which the test may no longer be used).Performed By: #### CVDTBH #### [facility] [address] [address] [address] Sruthi Sarmiento 99-26-0015Ysfiycowyrn peptide B (Bld) [Mass/Vol]1389.0 pg/mLCritically high<=900.0The [facility] SouthComment on above:Performed By: #### BNP, BMP ####[facility] [address] [place], [place] [address]AvDr. Sruthi ArechigaCBC AUTO DIFFon 57-84-7262ANXO #0.0 103/ulNormal0.0-0.1 The [facility] SouthComment on above:Performed By: #### CBC ####[facility] [address] [address]Dr.Yilan Arechiga Basophils/100 WBC (Bld)0.5 %Normal0.2-2.0The [facility] SouthComment on above: Performed By: #### CBC ####[facility] [address] [place], [place] [address]Dr.Yilan ChangEO #0.2 103/ulNormal0.0-0.7The [facility] SouthComment on above:Performed By: #### CBC ####[facility] Zosvqisibd[address] [place], [place] [address]Dr.Sruthi ChangEosinophils/100 WBC (Bld)2.4 %Normal0.9-7.0The [facility] SouthComment on above:Performed By: #### CBC ####[facility] S[address]kgftwrig[address] [place], [place] [address]Dr.Kamalalan ChangErythrocyte distribution width (RBC) [Ratio]13.2 %Normal 11.0-15.0The [facility] SouthComment on above:Performed By: #### CBC ####[facility] Rhcsgcsnhf[address] [place], [place] [address]Dr. Kamalalan ChangHematocrit (Bld) [Volume fraction]32.4 %Critically low36.0-48.0The [facility] SouthComment on above:Performed By: #### CBC ####[facility] [address]fef[address] [place], [place] [address]Dr.Sruthi ChangHemoglobin (Bld) [Mass/Vol]10.2 g/dLCritically low12.0-16.0The [facility] SouthComment on above:Performed By: #### CBC ####[facility] Satfypiqxd[address] [place], [place] [address]Dr.Kamalalan ChangIG #0.04 10e3/ulCritically high0.00-0.03 The [facility] SouthComment on above:Performed By: #### CBC ####[facility] Dzkynllrhf[address] [place], [place] [address]Dr.Kamalalan ChangIG % 0.5 %Normal0.0-0.5The [facility] SouthComment on above:Performed By: #### CBC ####[facility] W[address]mtnblje[address] [place], [place] [address]Dr. Sruthi ArechigaLYH #2.1 103/ulNormal1.2-3.8The [facility] SouthComment on above: Performed By: #### CBC ####[facility] [address] [address]Dr.Sruthi ArechigaLymphocytes/100 WBC (Bld)23.9 %Normal 20.5-60.0The [facility] SouthComment on above:Performed By: #### CBC ####[facility] Wgcccmqy[address] [place], [place] [address]Dr. Sruthi ArechigaMANUAL DIFF REQNONormalThe [facility] SouthComment on above: Performed By: #### CBC ####[facility] Dkdmsfjtop[address] [place], [place] [address]Dr.Sruthi ArechigaH (RBC) [Entitic mass]26.8 pgNormal 26.7-34.0The [facility] SouthComment on above:Performed By: #### CBC ####[facility] [address]fkqksiv[address] [place], [place] [address]Dr. Sruthi ArechigaHC (RBC) [Mass/Vol]31.5 g/bSFdjnnu57.9-35.2The [facility] Comment on above:Performed By: #### CBC ####[facility] I[address]hwdsedf[address] [place], [place] [address]Dr.Sruthi ArechigaMCV (RBC) [Entitic vol]85.0 fL Ejyqeb09.0-99.0The [facility] SouthComment on above:Performed By: #### CBC ####[facility] Jridguoxim[address] [place], [place] [address]Dr. Sruthi ArechigaMONO #1.1 103/ulCritically high0.3-0.8The [facility] SouthComment on above:Performed By: #### CBC ####[facility] Hbceasvkqc[address] [place], [place] [address]Dr.Sruthi ArechigaMonocytes/100 WBC (Bld)13.1 %Critically high1.7-12.0The [facility] SouthComment on above:Performed By: #### CBC ####[facility] [address] [address]Dr. Sruthi ChangNEUT #5.2 103/ulNormal1.4-6.5The [facility] SouthComment on above: Performed By: #### CBC ####[facility] Nbenvufvfm[address] [place], [place] [address]Dr.Sruthi ChangNeutrophils/100 WBC (Bld)59.6 %Normal 43.0-75.0The [facility] SouthComment on above:Performed By: #### CBC ####[facility] [address]olftpvt[address] [place], [place] [address]Dr. Sruthi ChangPlatelet mean volume (Bld) [Entitic vol]12.6 fLNormal9.5-13.5The [facility] SouthComment on above:Performed By: #### CBC ####[facility] [address]fbagsls[address] [place], [place] [address]Dr.Sruthi EkqmmRJZ284 103/ul Critically yie582-613Pme [facility] SouthComment on above:Performed By: #### CBC ####[facility] Zzwltkkuzc[address] [place], [place] [address]Dr. Sruthi ChangRBC3.81 106/ulCritically low4.20-5.40The [facility] on above:Performed By: #### CBC ####[facility] Nwsouqmzrl[address] [place], [place] [address]Dr.Sruthi ChangWBC8.7 103/ulNormal4.0-11.0The [facility] SouthComment on above:Performed By: #### CBC ####[facility] [address]mtj[address] [place], [place] [address]Dr.Sruthi ChangPROF CHEM 8 (BAS METB)on 17-50-0009Pxnpx gap [Moles/Vol]12.0 mmol/LNormalThe [facility] SouthComment on above:Performed By: #### BNP, BMP ####[facility] N[address]dxhzybc[address] [place], [place] [address]Dr. Kamalasven ChangCalcium [Mass/Vol]9.0 mg/dLNormal8.5-10.1The [facility] SouthComment on above:Performed By: #### BNP, BMP ####[facility] [address]ocdgxx[address] [place], [place] [address]Dr. Yilan ChangChloride [Moles/Vol]99 mmol/LNormal 98-107The [facility] SouthComment on above:Performed By: #### BNP, BMP ####[facility] [address]udfxwvv[address] [place], [place] [address]Dr. Yilan ChangCO2 [Moles/Vol]29.4 mmol/WVccvim19.0-32.0The [facility] SouthComment on above:Performed By: #### BNP, BMP ####[facility] [address]wlvdw[address] [place], [place] [address]Dr. Yilan ChangCreatinine [Mass/Vol]0.86 mg/dL Normal0.55-1.02The [facility]Comment on above:Performed By: #### BNP, BMP ####[facility] [address]kwlielu[address] [place], [place] [address]Dr. Yilan ChangEGFR-AF MALIAN>60Normal>=60The [facility] SouthCommymichigan [facility] on above: Performed By: #### BNP, BMP ####[facility] [address]nhtmugfos[address] [place], [place] [address]Dr. Yilan ChangEGFR-NON AF MALIAN>60Normal>=60The [facility] SouthCommymichigan [facility] on above:Performed By: #### BNP, BMP ####[facility] [address]qflvtnu[address] [place], [place] [address]Dr. Yilan Arechiga Glucose [Mass/Vol]185 mg/dLCritically rcpr11-654Bih [facility] SouthComment on above:Performed By: #### BNP, BMP ####[facility] Upnbesykjy[address] [place], [place] [address]Dr. Yilan ChangPotassium [Moles/Vol]4.4 mmol/LNormal 3.5-5.1The [facility] SouthComment on above:Performed By: #### BNP, BMP ####[facility] [address]qqdm[address] [place], [place] [address]Dr. Yilan ChangSodium [Moles/Vol]136 mmol/FStpsqc159-515Nkj [facility] SouthComment on above:Performed By: #### BNP, BMP ####[facility] [address] [address]DrIndu ArechigaUrea nitrogen [Mass/Vol]27.0 mg/dL Critically high7.0-18.0The [facility] SouthComment on above:Performed By: #### BNP, BMP ####[facility] [address] [address]DrIndu Negro ChangUrea nitrogen/Creatinine [Mass ratio]31.4 mg/mgNormalThe [facility] SouthComment on above:Performed By: #### BNP, BMP ####[facility] [address] [address]Dr. Sruthi LariosC AUTO DIFFon 65-91-5554KSQU #0.0 103/ulNormal0.0-0.1The [facility] SouthComment on above:Performed By: #### CVDTBH #### [facility] Laboratory [address] [place] [address] Dr. Sruthi ArechigaBasophils/100 WBC (Bld)0.4 %Normal0.2-2.0The [facility] Comment on above:Performed By: #### CVDTBH #### [facility] Laboratory [address] [place] [address] Dr. Sruthi Shields #0.2 103/ulNormal0.0-0.7The [facility] SouthComment on above: Performed By: #### CVDTBH #### [facility] [address] [place] [address] Dr. Sruthi Joyosinophils/100 WBC (Bld)2.4 %Normal0.9-7.0The [facility] Comment on above:Performed By: #### CVDTBH #### [facility] [address] [place] [address] Dr. Sruthi Joyrythrocyte distribution width (RBC) [Ratio]13.3 %Emkqjz42.0-15.0 The [facility] SouthComment on above:Performed By: #### CVDTBH #### [facility] [address] [address] [address] Sruthi ArechigaHematocrit (Bld) [Volume fraction]32.0 %Critically low36.0-48.0 The [facility] SouthComment on above:Performed By: #### CVDTBH #### [facility] [address] [address] [address] Sruthi ArechigaHemoglobin (Bld) [Mass/Vol]10.0 g/dLCritically low12.0-16.0The [facility] HospitalComment on above:Performed By: #### CVDTBH #### [facility] [address] [address] [address] Sruthi Conklin #0.05 10e3/ulCritically high0.00-0.03The [facility] on above:Performed By: #### CVDTBH #### [facility] [address] [address] [address] Sruthi Conklin %0.5 %Normal0.0-0.5The [facility] SouthComment on above: Performed By: #### CVDTBH #### [facility] [address] [address] [address] Sruthi Serrano #2.4 103/ulNormal1.2-3.8The [facility] SouthComment on above:Performed By: #### CVDTBH #### [facility] [address] [address] [address] Sruthi Tijerinahocytes/100 WBC (Bld)24.5 %Gwnbfq96.5-60.0[facility] NorthComment on above:Performed By: #### CVDTBH #### [facility] [address] [address] [address] Sruthi ToscanoUAL DIFF REQNONormalThe [facility] SouthComment on above: Performed By: #### CVDTBH #### [facility] [address] [address] [address] Sruthi Brink (RBC) [Entitic mass]26.5 pgCritically low26.7-34.0The [facility] SouthComment on above:Performed By: #### CVDTBH #### [facility] Laboratory [address] [place] [address] Dr. Sruthi Torres (RBC) [Mass/Vol]31.3 g/rNKwtrco13.9-35.2The [facility] SouthComment on above:Performed By: #### CVDTBH #### [facility] Laboratory [address] [place] [address] Dr. Sruthi Torres (RBC) [Entitic vol]84.9 sCOiyiwx42.0-99.0The [facility] SouthComment on above:Performed By: #### CVDTBH #### [facility] Laboratory [address] [place] [address] Dr. Sruthi Valladares #1.1 103/ulCritically high0.3-0.8The [facility] Comment on above:Performed By: #### MARGITBH #### [facility] Laboratory [address] [place] [address] Dr. Sruthi Alegriaocytes/100 WBC (Bld)11.7 %Normal1.7-12.0[facility] Comment on above:Performed By: #### CVDTBH #### [facility] [address] [place] [address] Dr. Sruthi Carl #5.8 103/ulNormal1.4-6.5The [facility] SouthComment on above:Performed By: #### CVDTBH #### [facility] [address] [place] [address] Dr. Sruthi Allanophils/100 WBC (Bld)60.5 %Auxcgp38.0-75.0The [facility] SouthComment on above:Performed By: #### CVDTBH #### [facility] [address] [place] [address] Dr. Sruthi Jaimelet mean volume (Bld) [Entitic vol]11.8 fLNormal9.5-13.5The [facility] SouthComment on above:Performed By: #### CVDTBH #### [facility] [address] [address] [address] Sruthi ArechigaPLT198 103/hqWhuthv509-315Rlf [facility] SouthComment on above: Performed By: #### CVDTBH #### [facility] [address] [address] [address] Sruthi ArechigaRBC3.77 106/ulCritically low4.20-5.40The [facility] SouthComment on above:Performed By: #### CVDTBH #### [facility] [address] [address] [address] Sruthi ArechigaWBC9.7 103/ulNormal4.0-11.0The [facility] SouthCommymichigan [facility] on above: Performed By: #### CVDTBH #### [facility] [address] [place] [address] Dr. Sruthi Tobin URINEon 14-08-1697OSDDAYR URINEIsolate 1 Klebsiella pneumoniae >100,000 cfu/mL of ORGANISM 1 Klebsiella pneumoniae ANTIBIOTIC M.I.C RX STATUS Ampicillin 16 R F Ampicillin/Sulbactam 4 S F Piperacillin/Tazobactam <=4 S F Cefazolin <=4 S F Ceftazidime <=1 S F Ceftriaxone <=1 S F Ertapenem <=0.5 S F Imipenem <=0.25 S F Amikacin <=2 S F Gentamicin <=1 S F Tobramycin <=1 S F Ciprofloxacin <=0.25 S F Levofloxacin <=0.12 S F Nitrofurantoin <=16 S F Trimethoprim/Sulfamethoxazole <=20 S FNormalThe [facility] SouthComment on above:Performed By: #### URCX ####[facility] [address] [address]Dr. Sruthi Alvarenga AND TIBCon 07-06-2022% SATURATION 9.3 %NormalThe [facility] SouthCommymichigan [facility] on above:Performed By: #### FETIBC, B12FOL ####[facility] [address] [address]Dr. Sruthi Alvarenga [Mass/Vol]33.0 ug/dLCritically low50.0-170.0The [facility] SouthComment on above:Performed By: #### FETIBC, B12FOL ####[facility] [address] [address]Dr. Sruthi ArechigaTIBC NCTYBM070.0 ug/zIIujerd375.0-450.0The [facility] SouthComment on above: Performed By: #### FETIBC, B12FOL ####[facility] [address] [address]Dr. Sruthi Gray BLD IMMUNO SCREENon 07-06-2022 OCCULT BLOODNegativeNormalNEGATIVEThe [facility] SouthComment on above: Performed By: #### OBSCRN #### [facility] Laboratory [address] [place] [address] Dr. Sruthi ArechigaPOINT OF CARE GLUCOSEon 16-57-8392Drxusgk [Mass/Vol]203 mg/dL Critically kvkv58-426GrdSelect Medical Specialty Hospital - [facility] NorthComment on above:Performed By: #### CBC #### [facility] Laboratory [address] [address] [address] Sruthi ArechigaGlucose [Mass/Vol]299 mg/dLCritically pxnx71-275Dvc [facility] SouthComment on above:Performed By: #### CVDTBH #### [facility] Laboratory [address] [address] [address] Sruthi ArechigaGlucose [Mass/Vol]412 mg/dLCritically loev89-060SkxSelect Medical Specialty Hospital - [facility] NorthComment on above:Performed By: #### CBC #### [facility] [address] [address] [address] Sruthi ArechigaPROF CHEM 8 (BAS METB)on 22-74-1198Zqdpe gap [Moles/Vol]11.0 mmol/LNormalThe [facility] Columbus SouthComment on above:Performed By: #### BMP ####[facility] Wigtpcaymf[address] [place], [place] [address]Dr. Sruthi ArechigaCalcium [Mass/Vol]9.0 mg/dLNormal8.5-10.1The [facility] SouthComment on above:Performed By: #### BMP ####[facility] L[address]lpekldrr[address] [place], [place] [address]Dr.Yilan ChangChloride [Moles/Vol]100 mmol/LNormal 98-107The [facility] SouthComment on above:Performed By: #### BMP ####[facility] Zetdmqxrbz[address] [place], [place] [address]Dr.Yilan ChangCO2 [Moles/Vol]28.5 mmol/RHuacrl37.0-32.0The [facility] SouthComment on above: Performed By: #### BMP ####[facility] Njzojoxftb[address] [place], [place] [address]Dr.Yilan ChangCreatinine [Mass/Vol]0.98 mg/dLNormal 0.55-1.02The [facility] SouthComment on above:Performed By: #### BMP ####[facility] Oggkbtwoko[address] [place], [place] [address]Dr. Yilan ChangEGFR-AF MALIAN>60Normal>=60The [facility] SouthComment on above: Performed By: #### BMP ####[facility] Bmdbhiibtb[address] [place], [place] [address]Dr.Yilan ChangEGFR-NON AF YRQKMPYC78 mL/min/1.73m2 Critically low>=60The [facility] SouthComment on above:Performed By: #### BMP ####[facility] Gsvxwzfoep[address] [place], [place] [address]Dr. Yilan ChangGlucose [Mass/Vol]139 mg/dLCritically grdl65-493Qif [facility] Comment on above:Performed By: #### BMP ####[facility] Zxtntslgjq[address] [place], [place] [address]Dr.Yilan ChangPotassium [Moles/Vol]4.5 mmol/LNormal3.5-5.1The [facility] SouthComment on above:Performed By: #### BMP ####[facility] Gofaqipopp[address] [place], [place] [address]Dr. Yilan ChangSodium [Moles/Vol]135 mmol/LCritically uyc045-351Vux [facility] SouthComment on above:Performed By: #### BMP ####[facility] Tyckacmsww[address] [place] [address]Dr.Sruthi ArechigaUrea nitrogen [Mass/Vol]25.0 mg/dLCritically high7.0-18.0The [facility] SouthComment on above:Performed By: #### BMP ####[facility] [address]fnq[address] [place] [address]Dr.Sruthi ChangUrea nitrogen/Creatinine [Mass ratio] 25.5 mg/mgNoUpper Valley Medical CenterComment on above:Performed By: #### BMP ####[facility] [address]jomdxaiql[address] [place] [address]Dr. Sruthi ArechigaVIT B12 AND FOLATEon 80-87-4088Dossuhttz (Vitamin B12) [Mass/Vol] 653.0 pg/zBRnyelu207.0-986.0The [facility] SouthComment on above:Performed By: #### FETIBC, B12FOL ####[facility] [address]bw[address] [place] [address]Dr. Sruthi ArechigaNrspdXELUHB21.90 ng/mLNormal8.60-58.90The [facility] Hospitalment on above:Performed By: #### FETIBC, B12FOL ####[facility] [address]ethr[address] [place] [address]Dr. Sruthi ArechigaXR CHEST 2 Von 67-51-4215YZ CHEST 2 VEXAM: XR CHEST 2 V HISTORY: SHORTNESS OF [...] Electronically authenticated by: GORDON VALENZUELA Date: 2022-07-06 08:43[facility] AUTO DIFFon 30-36-9820ADNK #0.0 103/ulNormal0.0-0.1The Edin HospitalComment on above:Performed By: #### CBC ####[facility] Ftthkbqepd[address] [place], [place] [address]Dr.Sruthi ChangBasophils/100 WBC (Bld)0.4 %Normal0.2-2.0The [facility] SouthComment on above:Performed By: #### CBC ####[facility] Yzzcgbokby[address] [place], [place] [address]Dr.Yilan ChangEO #0.2 103/ulNormal0.0-0.7The [facility] SouthComment on above:Performed By: #### CBC ####[facility] Euleptcxcy[address] [place], [place] [address]Dr.Kamalalan ChangEosinophils/100 WBC (Bld)2.6 %Normal 0.9-7.0The [facility] SouthComment on above:Performed By: #### CBC ####[facility] Pukivkqecj[address] [place], [place] [address]Dr.Sruthi Arechiga Erythrocyte distribution width (RBC) [Ratio]13.3 %Ucsxuy45.0-15.0The [facility] SouthComment on above:Performed By: #### CBC ####[facility] Cinizarxlr[address] [place], [place] [address]Dr.Sruthi ChangHematocrit (Bld) [Volume fraction]31.3 %Critically low36.0-48.0The [facility] SouthComment on above:Performed By: #### CBC ####[facility] Ptkvugzltd[address] [place], [place] [address]Dr.Sruthi ChangHemoglobin (Bld) [Mass/Vol]9.9 g/dL Critically low12.0-16.0The [facility] SouthComment on above:Performed By: #### CBC ####[facility] Uofmnzabqr[address] [place], [place] [address]Dr. Sruthi ChangIG #0.07 10e3/ulCritically high0.00-0.03The [facility] SouthComment on above:Performed By: #### CBC ####[facility] Pbnfakhwgx[address] [place], [place] [address]Dr.Yilan ChangIG %0.8 %Critically high0.0-0.5The [facility]lass HospitalComment on above:Performed By: #### CBC ####[facility] Vsprwphbfh[address] [place], [place] [address]Dr.Kamalasven CaliELMHURST HOSPITAL C[facility] #2.1 103/ulNormal1.2-3.8The [facility]lass HospitalComment on above:Performed By: #### CBC ####[facility] Ylmvmnuesh[address] [place], [place] [address]Dr. Kamalasven Calihocytes/100 WBC (Bld)22.5 %Ocpyuu41.5-60.0The [facility] Comment on above:Performed By: #### CBC ####[facility] Tcdlmknbqg[address] [place], [place] [address]Dr.Sruthi ArechigaMANUAL DIFF REQNONormalThe [facility] SouthComment on above:Performed By: #### CBC ####[facility] Oosiljhwfg[address] [place], [place] [address]Dr.Sruthi ArechigaBURKE [facility] (RBC) [Entitic mass]27.0 xlOruqiv61.7-34.0The [facility] SouthComment on above: Performed By: #### CBC ####[facility] Lfnpcxrdiy[address] [place], [place] [address]Dr.Kamalasven ArechigaELLIS ISLAND [facility] (RBC) [Mass/Vol]31.6 g/dLNormal 29.9-35.2[facility] NorthComment on above:Performed By: #### CBC ####[facility] Tkbjatrqnj[address] [place], [place] [address]Dr. Sruthi ArechigaV (RBC) [Entitic vol]85.3 zQWrkzqt41.0-99.0The [facility] Comment on above:Performed By: #### CBC ####[facility] Frjqtbwwfm[address] [place], [place] [address]DrJaswinder AlegriaO #1.2 103/ulCritically high0.3-0.8The [facility] HospitalComment on above:Performed By: #### CBC ####[facility] Msdkiqulba[address] [place], [place] [address]Dr. Sruthi ChangMonocytes/100 WBC (Bld)12.9 %Critically high1.7-12.0The [facility] SouthComment on above:Performed By: #### CBC ####[facility] [address]vzl[address] [place] [address]Dr.Sruthi ChangNEUT #5.7 103/ulNormal1.4-6.5The [facility] SouthComment on above:Performed By: #### CBC ####[facility] [address]azkipt[address] [place] [address]Dr. Kamalalan ChangNeutrophils/100 WBC (Bld)60.8 %Lnpxnw49.0-75.0The [facility] Comment on above:Performed By: #### CBC ####[facility] Lvuebmffpw[address] [place] [address]Dr.Sruthi ChangPlatelet mean volume (Bld) [Entitic vol]11.2 fLNormal9.5-13.5The [facility] SouthComment on above: Performed By: #### CBC ####[facility] [address]ktjl[address] [place] [address]Dr.Yilan ZczppCTF007 103/hiQfxefw393-879Kne [facility] SouthComment on above:Performed By: #### CBC ####[facility] Ewlnb[address]qqf[address] [place], [place] [address]Dr.Sruthi ChangRBC3.67 106/ul Critically low4.20-5.40The [facility] SouthComment on above:Performed By: #### CBC ####[facility] [address]fgamwb[address] [place] [address]Dr. Kamalalan ChangWBC9.3 103/ulNormal4.0-11.0The [facility] [place] SouthComment on above: Performed By: #### CBC ####[facility] Qazdffeeer[address] [place], [place] [address]Dr.Sruthi ChangLIFEBRITE [facility] GLUCOSEon 07-05-2022 Glucose [Mass/Vol]164 mg/dLCritically vtyt46-289Qya [facility] SouthComment on above:Performed By: #### CVDTBH #### [facility] Laboratory [address] [place], [place] [address] Dr. Srtuhi ArechigaGlucose [Mass/Vol]303 mg/dLCritically ullv89-965Wco [facility] SouthComment on above:Performed By: #### POCGLUC #### [facility] Laboratory [address] [address] [address] Sruthi ArechigaGlucose [Mass/Vol]278 mg/dLCritically npxm09-321Fjw [facility] SouthComment on above:Performed By: #### CVDTBH #### [facility] Laboratory [address] [place] [address] [address] Sruthi ArechigaPROF CHEM 8 (BAS METB)on 93-66-3994Pcujg gap [Moles/Vol]9.9 mmol/LNormalThe [facility] SouthComment on above:Performed By: #### BMP ####[facility] [address]tvgl[address] [place] [address]Dr. Sruthi ChangCalcium [Mass/Vol]8.7 mg/dLNormal8.5-10.1The [facility] SouthComment on above:Performed By: #### BMP ####[facility] [address]ivgcom[address] [place] [address]Dr.Sruthi ChangChloride [Moles/Vol]100 mmol/LNormal 98-107The [facility] [place] SouthComment on above:Performed By: #### BMP ####[facility] [address]ie[address]rud[address] [place] [address]DrJaswinder ChangCO2 [Moles/Vol]28.4 mmol/KHnahow08.0-32.0The [facility] SouthComment on above: Performed By: #### BMP ####[facility] [address] [place] [address]Dr.Sruthi ChangCreatinine [Mass/Vol]0.99 mg/dLNormal 0.55-1.02The [facility] SouthComment on above:Performed By: #### BMP ####[facility] [address]hwgv[address] [place] [address]Dr. Sruthi ChangEGFR-AF MALIAN>60Normal>=60The [facility] SouthComment on above: Performed By: #### BMP ####[facility] [address]nihan[address] [place] [address]Dr.Sruthi ChangEGFR-NON AF BUICFNKQ50 mL/min/1.73m2 Critically low>=60The [facility] SouthComment on above:Performed By: #### BMP ####[facility] [address]em[address] [place] [address]Dr. Sruthi ChangGlucose [Mass/Vol]174 mg/dLCritically plrt91-464Cdu [facility] Comment on above:Performed By: #### BMP ####[facility] [address]innacgpl[address] [place] [address]Dr.Sruthi ChangPotassium [Moles/Vol]4.3 mmol/LNormal3.5-5.1The [facility] SouthComment on above:Performed By: #### BMP ####[facility] [address]nbrcjzf[address] [place] [address]Dr. Sruthi ChangSodium [Moles/Vol]134 mmol/LCritically dqs009-185Ifk [facility] SouthComment on above:Performed By: #### BMP ####[facility] [address]kpayzn[address] [place] [address]Dr.Sruthi ChangUrea nitrogen [Mass/Vol]22.0 mg/dLCritically high7.0-18.0The [facility] SouthComment on above:Performed By: #### BMP ####[facility] [address] [place] [address]Dr.Sruthi ChangUrea nitrogen/Creatinine [Mass ratio] 22.2 mg/mgNormalThe [facility] SouthComment on above:Performed By: #### BMP ####[facility] [address]ysbgsbmz[address] [place] [address]Dr. Sruthi Sarmiento 12-65-6898Rzavmomvgeq peptide B (Bld) [Mass/Vol]1822.0 pg/mL Critically high<=900.0The [facility] SouthComment on above:Performed By: #### CBC #### [facility] Laboratory [address] [place] [address] [address] Sruthi Fisher AUTO DIFFon 27-85-8303TWQQ #0.0 103/ulNormal0.0-0.1The [facility] SouthComment on above:Performed By: #### CBC #### [facility] Laboratory [address] [address] [address] Sruthi ArechigaBasophils/100 WBC (Bld)0.4 %Normal0.2-2.0[facility] Comment on above:Performed By: #### CBC #### [facility] Laboratory [address] [address] [address] Sruthi Shields #0.2 103/ulNormal0.0-0.7The [facility] SouthComment on above: Performed By: #### CBC #### [facility] Laboratory [address] [place] [address] Dr. Sruthi Joyosinophils/100 WBC (Bld)2.4 %Normal0.9-7.0[facility] Comment on above:Performed By: #### CBC #### [facility] Laboratory [address] [place] [address] Dr. Sruthi Joyrythrocyte distribution width (RBC) [Ratio]13.5 %Vanjil73.0-15.0 The [facility] SouthComment on above:Performed By: #### CBC #### [facility] Laboratory [address] [place] [address] Dr. Sruthi ArechigaHematocrit (Bld) [Volume fraction]36.4 %Ycxsfe24.0-48.0The [facility] SouthComment on above:Performed By: #### CBC #### [facility] Laboratory [address] [place] [address] Dr. Sruthi ArechigaHemoglobin (Bld) [Mass/Vol]11.6 g/dLCritically low12.0-16.0The [facility] SouthComment on above:Performed By: #### CBC #### [facility] Laboratory [address] [place] [address] Dr. Sruthi Conklin #0.11 10e3/ulCritically high0.00-0.03The [facility] Comment on above:Performed By: #### CBC #### [facility] Laboratory [address] [address] [address] Sruthi Conklin %1.2 %Critically high0.0-0.5The [facility] [place] SouthComment on above:Performed By: #### CBC #### [facility] Laboratory [address] [address] [address] Sruthi Serrano #1.7 103/ulNormal1.2-3.8The [facility] SouthComment on above:Performed By: #### CBC #### [facility] Laboratory [address] [address] [address] Sruthi Calihocytes/100 WBC (Bld)19.0 %Critically low20.5-60.0The [facility] SouthComment on above:Performed By: #### CBC #### [facility] Laboratory [address] [place] [address] Dr. Sruthi ToscanoUAL DIFF REQNONormalThe [facility] SouthComment on above: Performed By: #### CBC #### [facility] Laboratory [address] [address] [address] Sruthi Torres (RBC) [Entitic mass]27.3 qyNwjtmv85.7-34.0The [facility] SouthComment on above:Performed By: #### CBC #### [facility] Laboratory [address] [place] [address] Dr. Sruthi Torres (RBC) [Mass/Vol]31.9 g/aZPpahhb81.9-35.2The [facility] [place] SouthComment on above:Performed By: #### CBC #### [facility] Laboratory [address] [place] [address] Dr. Sruthi Torres (RBC) [Entitic vol]85.6 mFHgzjbt31.0-99.0The [facility] SouthComment on above:Performed By: #### CBC #### [facility] Laboratory [address] [place] [address] Dr. Sruthi Valladares #1.1 103/ulCritically high0.3-0.8The [facility] Comment on above:Performed By: #### CBC #### [facility] Laboratory [address] [place] [address] Dr. Sruthi Alegriaocytes/100 WBC (Bld)11.9 %Normal1.7-12.0The [facility] Comment on above:Performed By: #### CBC #### [facility] Laboratory [address] [place] [address] Dr. Sruthi GomezUT #6.0 103/ulNormal1.4-6.5The [facility] SouthComment on above:Performed By: #### CBC #### [facility] Laboratory [address] [place] [address] Dr. Sruthi Gomezutrophils/100 WBC (Bld)65.1 %Jjkkpd05.0-75.0The [facility] SouthComment on above:Performed By: #### CBC #### [facility] Laboratory [address] [place] [address] Dr. Sruthi Jaimelet mean volume (Bld) [Entitic vol]10.7 fLNormal9.5-13.5The [facility] SouthComment on above:Performed By: #### CBC #### [facility] Laboratory [address] [place] [address] Dr. Sruthi ArechigaPLT264 103/lwSwqpme343-878Egr [facility] SouthComment on above: Performed By: #### CBC #### [facility] Laboratory [address] [place] [address] Dr. Sruthi ArechigaRBC4.25 106/ulNormal4.20-5.40The [facility] Hospitalment on above:Performed By: #### CBC #### [facility] Laboratory [address] [place] [address] Dr. Sruthi ArechigaWBC9.2 103/ulNormal4.0-11.0The [facility] Hospitalment on above: Performed By: #### CBC #### [facility] Laboratory [address] [place] [address] Dr. Sruthi ArechigaCovid-19 PCR (CVDTBH)on 11-15-0102QNKS-CoV-2 (COVID-19) RNA KOLE+probe Ql (Unsp spec)Not detectedNormalNOT DETECTEDSelect [facility] Comment on above:Result Comment: When diagnostic testing is negative, the [...] for this test is supported by the [employer] Engineer of Health and Human Service's declaration that circumstances exist to justify the emergency use of in vitro diagnostics for the detection and/or diagnosis of the virus that causes COVID-19. This EUA will remain in effect for the duration of the COVID-19 declaration justifying emergency of IVDs, unless it is terminated or revoked by the FDA (after which the test may no longer be used).Performed By: #### CVDTBH ####[facility] [address] [place] [address]Dr. Sruthi Rodriguez URINE PROFILEon 98-03-9827Syhcmqjqu Ql (U)NegativeNormal NEGATIVESelect Medical Specialty Hospital - [place] NorthComment on above:Performed By: #### CVDTBH #### [facility] Laboratory [address] [place] [address] Dr. Sruthi Varela (U)CLEARNormalCLEARSelect Medical Specialty Hospital - [place] NorthComment on above: Performed By: #### CVDTBH #### [facility] Laboratory [address] [place] [address] Dr. Sruthi Tran (U)LT. YELLOWNormalYELLOWSelect Medical Specialty Hospital - [place] NorthComment on above:Performed By: #### CVDTBH #### [facility] Laboratory [address] [place] [address] Dr. Sruthi Hidalgo micrscopic examination will be performed if indicated. NormalThe [facility] SouthComment on above:Performed By: #### CVDTBH #### [facility] Laboratory [address] [place] [address] Dr. Sruthi Leyvaose Ql (U)>1000AbnormalNEGATIVESelect Medical Specialty Hospital - [place] NorthComment on above:Performed By: #### CVDTBH #### [facility] Laboratory [address] [address] [address] Sruthi ArechigaHemoglobin Ql (U)NegativeNormalNEGHocking Valley Community Hospital Comment on above:Performed By: #### CVDTBH #### [facility] Laboratory [address] [address] [address] Sruthi ArechigaKetones Ql (U)NegativeNormalNEGATIVESelect Medical Specialty [facility] - [place] NorthComment on above:Performed By: #### CVDTBH #### [facility] Laboratory [address] [address] [address] Sruthi ArechigaLEUKOCYTESSMALLAbnormalNEGATIVESelect Medical Specialty [facility] - [place] NorthComment on above:Performed By: #### CVDTBH #### [facility] Laboratory [address] [place] [address] Dr. Sruthi ArechigaNitrite Ql (U)NegativeNormalNEGATIVESelect Medical Specialty [facility] - [place] NorthComment on above:Performed By: #### CVDTBH #### [facility] Laboratory [address] [place] [address] Dr. Sruthi ArechigapH (U)6.0 [pH]Normal5-9[facility] [place] NorthComment on above: Performed By: #### CVDTBH #### [facility] Laboratory [address] [place] [address] Dr. Sruthi ArechigaSPEC GRAVITY<=1.118Vndvtzdq1.005-<=1.025[facility] Comment on above:Performed By: #### CVDTBH #### [facility] Laboratory [address] [place] [address] Dr. Sruthi Whitehead PROTEINNegativeNormalNEGATIVE/ TRACESelect Medical Specialty [facility] [place] [facility] Comment on above:Performed By: #### CVDTBH #### [facility] Laboratory [address] [place] [address] Dr. Sruthi Adamson MICRO INDINDICATEDNoalThCleveland Clinic Avon HospitalComment on above: Performed By: #### CVDTBH #### [facility] Laboratory [address] [place] [address] Dr. Yilan ChangUrobilinogen Qn (U)0.2 {Willow'U}/dLNormal0.2 - 1.0The [facility] SouthComment on above:Performed By: #### CVDTBH #### [facility] Laboratory [address] [address] [address] Sruthi ArechigaPOINT OF CARE GLUCOSEon 29-24-5173Bytgiih [Mass/Vol]262 mg/dL Critically bpkz03-215Mll [facility] SouthComment on above:Performed By: #### POCGLUC ####[facility] [address] [place] [address]Dr. Sruthi ArechigaPROF CHEM 8 (BAS METB)on 01-79-7655Ddoka gap [Moles/Vol]13.0 mmol/LNormalThe [facility] SouthComment on above:Performed By: #### CBC #### [facility] [address] [address] [address] Sruthi ArechigaCalcium [Mass/Vol]9.3 mg/dLNormal8.5-10.1The [facility] Comment on above:Performed By: #### CBC #### [facility] [address] [address] [address] Sruthi ArechigaChloride [Moles/Vol]99 mmol/RLhpdwd74-203Wby [facility] Comment on above:Performed By: #### CBC #### [facility] [address] [address] [address] Sruthi ArechigaCO2 [Moles/Vol]26.3 mmol/DCquwcw27.0-32.0The [facility] Comment on above:Performed By: #### CBC #### [facility] [address] [address] [address] Sruthi ArechigaCreatinine [Mass/Vol]0.95 mg/dLNormal0.55-1.02The [facility] SouthComment on above:Performed By: #### CBC #### [facility] [address] [address] [address] Negro ChangEGFR-AF MALIAN>60Normal>=60The [facility] SouthComment on above:Performed By: #### CBC #### [facility] [address] [address] [address] Sruthi JoyGFR-NON AF TMXNUTWO22 mL/min/1.24s9Uugfxloygr low>=60The [facility] on above:Performed By: #### CBC #### [facility] [address] [address] [address] Sruthi ArechigaGlucose [Mass/Vol]331 mg/dLCritically oasn37-856Uhx [facility] on above:Performed By: #### CBC #### [facility] [address] [address] [address] Sruthi ArechigaPotassium [Moles/Vol]4.3 mmol/LNormal3.5-5.1The [facility] Comment on above:Performed By: #### CBC #### [facility] [address] [address] [address] Sruthi ArechigaSodium [Moles/Vol]134 mmol/LCritically nxg990-176Vmh [facility] on above:Performed By: #### CBC #### [facility] [address] [address] [address] Sruthi ArechigaUrea nitrogen [Mass/Vol]20.0 mg/dLCritically high7.0-18.0The [facility] on above:Performed By: #### CBC #### [facility] [address] [address] [address] Sruthi ArechigaUrea nitrogen/Creatinine [Mass ratio]21.1 mg/mgNormalThe [facility] SouthComment on above:Performed By: #### CBC #### [facility] [address] [address] [address] Sruthi Tucker, HIGH SENSITIVITYon 92-66-3017TTWRSW410.1 pg/mL Critically high4.0-51.3The [facility] on above:Result Comment: CUT-OFF POINTS HAVE BEEN ESTABLISHED BASED ON THE FOURTH UNIVERSAL DEFINITIONS OF MYOCARDIAL INFARCTION. THE UPPER REFERENCE LIMIT (URL) OF TROPONIN, DEFINED THE 99TH PERCENTILE OF cTnI DISTRIBUTION IN A REFERENCE POPULATION, HAS BEEN CONFIRMED THE DECISION THRESHOLD FOR OK DIAGNOSIS.Performed By: #### CBC #### [facility] [address] [place] [address] Dr. Sruthi Garrido126.6 pg/mLCritically high4.0-51.3The [facility] Comment on above:Result Comment: CUT-OFF POINTS HAVE BEEN ESTABLISHED BASED ON THE FOURTH UNIVERSAL DEFINITIONS OF MYOCARDIAL INFARCTION. THE UPPER REFERENCE LIMIT (URL) OF TROPONIN, DEFINED THE 99TH PERCENTILE OF cTnI DISTRIBUTION IN A REFERENCE POPULATION, HAS BEEN CONFIRMED THE DECISION THRESHOLD FOR OK DIAGNOSIS.Performed By: #### CVDTBH #### [facility] [address] [place] [address] Dr. Sruthi Antunez [id number]hmHDBP SEEN [facility] NorthCommymichigan [facility] on above:Performed By: #### CVDTBH #### [facility] [address] [place] [address] Dr. Sruthi Walls identified Cx Nom (U)INDICATEDAshtabula County Medical CenterComment on above:Performed By: #### CVDTBH #### [facility] [address] [place] [address] Dr. Sruthi Olmos SEENNormalNONE SEENSelect [facility] NorthCommymichigan medical center west branch on above:Performed By: #### CVDTBH #### [facility] [address] [place] [address] Dr. Sruthi Brown LM Nom (Urine sed)NONE SEENNormalNONE SEENSelect [facility] NorthCommymichigan medical center west branch on above:Performed By: #### CVDTBH #### [facility] [address] [place] [address] Dr. Negro ChangEpithelial cells LM Ql (Urine sed)FEWAbnormalNONE SEEN /RAREThe [facility] SouthCommymichigan medical center [facility] on above:Performed By: #### CVDTBH #### [facility] [address] [place] [address] Dr. Sruthi Jernigan SEENNounc health rockinghamNONE SEENTwin [facility] on above:Performed By: #### CVDTBH #### [facility] [address] [address] [address] Sruthi ArechigaRBCNJEAN SEENAbnormal0-2The [facility] SouthComment on above: Performed By: #### CVDTBH #### [facility] [address] [address] [address] Sruthi ArechigaQfwolPZD47-80RwpgepqsODGI SEENThe [facility] SouthComment on above: Performed By: #### CVDTBH #### [facility] [address] [place] [address] Dr. Sruthi ArechigaXR CHEST 1 Von [id number] CHEST 1 VEXAMINATION: XR CHEST 1 V HISTORY: SHORTNESS OF BREATH COMPARISON: [...] Electronically authenticated by: GERMAIN COY Date: 2022-07-04 11:53[facility] COMPLETE BLOOD COUNTon [id number] distribution width (RBC) [Ratio]13.4 %Jvcxuv13.5-15.0The [facility] Comment on above:Order Comment: No: Do not add to previous drawPerformed By: #### [id number] #### [facility] [address] [place] [address], USAHematocrit (Bld) [Volume fraction]33.6 %Low36.0-45.0The [facility] HealthComment on above:Order Comment: No: Do not add to previous drawPerformed By: #### [id number] #### [facility] [address] [place] [address], USAHemoglobin (Bld) [Mass/Vol]10.6 g/dLLow12.0-15.0The [facility] HealthComment on above:Order Comment: No: Do not add to previous drawPerformed By: #### [id number] #### [facility] [address] [place] [address], [facility] (RBC) [Entitic mass]26.6 pgLow27.0-33.0The [facility] HealthComment on above:Order Comment: No: Do not add to previous drawPerformed By: #### 32402 #### [facility] [address] [place] [address], [facility] (RBC) [Mass/Vol]31.5 g/dLLow32.0-35.0The [facility] HealthComment on above:Order Comment: No: Do not add to previous drawPerformed By: #### 25167 #### [facility] [address] [place] [address], [facility] (RBC) [Entitic vol]84.4 aHQmjxzk47.0-98.0The [facility] HealthComment on above:Order Comment: No: Do not add to previous drawPerformed By: #### 26917 #### [facility] [address] [place] [address], USANucleated RBC/100 WBC (Bld) [Ratio]0 %Normal0-0The [facility] HealthComment on above:Order Comment: No: Do not add to previous drawPerformed By: #### 70839 #### [facility] [address] [place] [address], USAPLAT [id number] 10*3/nBIgsqpe146-016Hgj [facility] HealthComment on above:Order Comment: No: Do not add to previous draw Performed By: #### 91181 #### [facility] [address] [place] [address], [facility] HOSPITALRBC (Bld) [#/Vol]3.98 10*6/uLNormal3.80-5.00The [facility] HealthComment on above:Order Comment: No: Do not add to previous drawPerformed By: #### 12741 #### [facility] [address] [place] [address], USAWBC (Bld) [#/Vol]10.25 10*3/uLNormal4.00-10.60The [facility] HealthComment on above:Order Comment: No: Do not add to previous drawPerformed By: #### 34131 #### [facility] [address] [place] [address], USAPOC GLUCOSE LABon 81-01-1245Jjoaikk [Mass/Vol]204 mg/dLHigh 70-100The [facility] HealthComment on above:Performed By: #### 21841, 40975, 70566 #### [facility] [address] [place] [address], USAGlucose [Mass/Vol]135 mg/hKOwrf40-901Lqz [facility] HealthComment on above:Performed By: #### 31024 #### [facility] [address] [place] [address], USAUFH HEPARIN ASSAYon 73-27-1334MEQTJWWDNTWXZE HEPARIN<0.10 Critically low0.30-0.70The [facility] HealthComment on above: Result Comment: Result checked and called. Accurately read back by Cahnda @0737 Rivaroxaban and Apixaban will interfere with the anti Xa assay used to monitor UFH and LMWH.Performed By: #### 74573 #### [facility] [address] [place] [address], USABASIC METABOLIC PANELon 36-78-2875Hnjnsqr [Mass/Vol]8.8 mg/dLNormal8.6-10.3The [facility] HealthComment on above:Order Comment: No: Do not add to previous drawPerformed By: #### 46605 #### [facility] [address] [place] [address], USAChloride [Moles/Vol]104 mmol/EJaxlzb87-396Dhb [facility] HealthComment on above:Order Comment: No: Do not add to previous drawPerformed By: #### 04432 #### [facility] [address] [place] [address], USACO2 [Moles/Vol]26 mmol/PPoxkjc13-89Pyf [facility] HealthComment on above:Order Comment: No: Do not add to previous draw Performed By: #### 22803 #### [facility] [address] [place] [address], USACreatinine [Mass/Vol]0.62 mg/dLNormal0.60-1.20The [facility] HealthComment on above:Order Comment: No: Do not add to previous drawPerformed By: #### 83522 #### [facility] [address] [place] [address], USAGFR/1.73 sq M.predicted among non-blacks MDRD (S/P/Bld) [Vol rate/Area]mL/min/{1.73_m2}Normal>60The [facility] Comment on above:Order Comment: No: Do not add to previous drawResult Comment: The [facility]'s estimated glomerular filtration rate (eGFR) will no [...] not disproportionately affect any one group of individuals.Performed By: #### 84780 #### [facility] [address] [place] [address], USAGlucose [Mass/Vol]212 mg/tJXgcb01-589Hxj [facility] HealthComment on above:Order Comment: No: Do not add to previous drawPerformed By: #### 92561 #### [facility] [address] [place] [address], USAPotassium [Moles/Vol]3.8 mmol/LNormal3.5-5.1The [facility] HealthComment on above:Order Comment: No: Do not add to previous drawPerformed By: #### 14207 #### [facility] [address] [place] [address], USASodium [Moles/Vol]134 mmol/TVyl533-076Qnp [facility] HealthComment on above:Order Comment: No: Do not add to previous drawPerformed By: #### 93619 #### [facility] [address] [place] [address], USAUrea nitrogen [Mass/Vol]15 mg/dLNormal7-25The [facility] HealthComment on above:Order Comment: No: Do not add to previous drawPerformed By: #### 39211 #### [facility] [address] [place] [address], [facility] HOSPITALCBC W/DIFFon [id number] IMM GRANS0.1 10*3/uLNormal 0.0-0.2The [facility] HealthComment on above:Order Comment: No: Do not add to previous drawPerformed By: #### 92803 #### [facility] [address] [place] [address], USAABS NEUTROPHILS6.3 10*3/uLNormal1.6-7.6The [facility] HealthComment on above:Order Comment: No: Do not add to previous drawPerformed By: #### 88350 #### [facility] [address] [place] [address], USABasophils (Bld) [#/Vol]0.0 10*3/uLNormal0.0-0.2The [facility] HealthComment on above:Order Comment: No: Do not add to previous drawPerformed By: #### 86869 #### [facility] [address] [place] [address], USABasophils/100 WBC (Bld)0.3 %Normal0.0-1.0The [facility] HealthComment on above:Order Comment: No: Do not add to previous drawPerformed By: #### 78098 #### [facility] [address] [place] [address], USAEosinophils (Bld) [#/Vol]0.2 10*3/uLNormal0.0-0.5The [facility] HealthComment on above:Order Comment: No: Do not add to previous drawPerformed By: #### 77334 #### [facility] [address] [place] [address], USAEosinophils/100 WBC (Bld)2.3 %Normal0.0-6.0The [facility] HealthComment on above:Order Comment: No: Do not add to previous drawPerformed By: #### 16393 #### [facility] [address] [facility] [place] [address], USAErythrocyte distribution width (RBC) [Ratio]13.5 %Normal 11.5-15.0The [facility] HealthComment on above:Order Comment: No: Do not add to previous drawPerformed By: #### 59789 #### [facility] [address] [facility] [place] [address], USAHematocrit (Bld) [Volume fraction]31.3 %Low36.0-45.0The [facility] HealthComment on above:Order Comment: No: Do not add to previous drawPerformed By: #### 46821 #### [facility] [address] [facility] [place] [address], USAHemoglobin (Bld) [Mass/Vol]10.2 g/dLLow12.0-15.0The [facility] HealthComment on above:Order Comment: No: Do not add to previous drawPerformed By: #### 52675 #### [facility] [address] [place] [address], USAIMMATURE GRANS0.8 %Normal0.0-1.0The [facility] HealthComment on above:Order Comment: No: Do not add to previous draw Performed By: #### 48659 #### [facility] [address] [place] [address], USALymphocytes (Bld) [#/Vol]1.9 10*3/uLNormal1.2-4.0The [facility] HealthComment on above:Order Comment: No: Do not add to previous drawPerformed By: #### 69487 #### [facility] [address] [place] [address], USALymphocytes/100 WBC (Bld)19.4 %Low20.0-45.0The [facility] HealthComment on above:Order Comment: No: Do not add to previous drawPerformed By: #### 57386 #### [facility] [address] [place] [address], [facility] (RBC) [Entitic mass]27.5 gaHnlmep24.0-33.0The [facility] HealthComment on above:Order Comment: No: Do not add to previous drawPerformed By: #### 17622 #### [facility] [address] [place] [address], [facility] (RBC) [Mass/Vol]32.6 g/qSGboswd68.0-35.0The [facility] HealthComment on above:Order Comment: No: Do not add to previous drawPerformed By: #### 86459 #### [facility] [address] [place] [address], USAMCV (RBC) [Entitic vol]84.4 nZVllvdf53.0-98.0The [facility] HealthComment on above:Order Comment: No: Do not add to previous drawPerformed By: #### 24544 #### [facility] [address] [place] [address], USAMonocytes (Bld) [#/Vol]1.3 10*3/uLHigh0.1-1.0The [facility] HealthComment on above:Order Comment: No: Do not add to previous drawPerformed By: #### 94497 #### [facility] [address] [place] [address], GGQCHVTA78.1 %High5.0-12.0The [facility] HealthComment on above:Order Comment: No: Do not add to previous drawPerformed By: #### 61460 #### [facility] [address] [place] [address], USANeutrophils/100 WBC (Bld)64.1 %Xbjwoa78.0-72.0The [facility] HealthComment on above:Order Comment: No: Do not add to previous drawPerformed By: #### 19138 #### [facility] [address] [place] [address], USANucleated RBC/100 WBC (Bld) [Ratio]0 %Normal0-0The [facility] HealthComment on above:Order Comment: No: Do not add to previous drawPerformed By: #### 44124 #### [facility] [address] [place] [address], USAPLAT YHD816 10*3/ePFjyssm110-459Eao [facility] HealthComment on above:Order Comment: No: Do not add to previous draw Performed By: #### 32532 #### [facility] [address] [facility] [place] [place] [address], USARBC (Bld) [#/Vol]3.71 10*6/uLLow3.80-5.00The [facility] HealthComment on above:Order Comment: No: Do not add to previous drawPerformed By: #### 55243 #### [facility] [address] [place] [address], USAWBC (Bld) [#/Vol]9.85 10*3/uLNormal4.00-10.60The [facility] HealthComment on above:Order Comment: No: Do not add to previous drawPerformed By: #### 26312 #### [facility] [address] [place] [address], USACTA ABDOMEN AND PELVISon [id number] ABDOMEN AND PELVIS [facility] Department of Radiology [address] [place] [place] [id number] Patient Name: DIANN PATEL : 1955 Sex: F Age: Race: White Pt. Location: [id number] Patient Status: D Ordered Date: 07/02/2022 8:20:00 [...] as low as reasonably achievable Electronically signed: Robinson Zhu. Transcribed by: [email or web address], User Resident: Electronically Signed by: ROBINSON ZHU @ 07/12/2022 01:12 [facility] CampusComment on above:Order Comment: No: Do not add to previous draw No collection time noted on specimen or requisition. The collection time recorded is the time of receipt in the lab.CTA CHESTon [id number] CHEST [facility] Department of Radiology [address] [place] [id number] Patient Name: DIANN PATEL : 1955 Sex: F Age: Race: White Pt. Location: [id number] Patient Status: D Ordered Date: 07/02/2022 8:20:00 [...] the aorta. and coronary arteries. Mediastinum and Lesly: Within normal limits. Heart: Normal size. 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 Significant vascular calcification. Electronically signed: Robinson Zhu. Transcribed by: [id number], User Resident: Electronically Signed by: ROBINSON ZHU @ 07/12/2022 01:06 [facility] CampusComment on above:Order Comment: No: Do not add to previous draw No collection time noted on specimen or requisition. The collection time recorded is the time of receipt in the lab.Cardiovascular Lab Reporton [id number] Lab ReportUnUniversity [facility]als [facility]: [facility] Josep MR #: [id number] Department of Physician: Alex Kelly M.D. Division of Service Date: 07/01/2022 Cardiology Birthdate: 1955 Adult Cardiovascular Room #: [address]AB [id number] [address] Cardiovascular Laboratory Report CLINICAL PRESENTATION: The patient [...] ultrasound guidance and micropuncture access technique, a 6-Stateless sheath was placed in right common femoral [...] exchanges were made over the J-tip guidewire, 6-Stateless JL4 was used to engage the left main coronary artery. A 6-Stateless JR4 was used to engage the right coronary artery. A 6-Stateless JR4 was used to engage the radial bypass graft to the D1 and the SVG to the OM2. The 6-Stateless JR4 was also used to engage the [...] Betts M.D. Date Trans: 07/02/2022 10:08 A/abdiaziz DN_JN:[id number] cc: Champ Bell M.D. 3 [facility] [address]XyjygoRyaMercy Health West HospitalMAGNESIUM BLOODon [id number] [Mass/Vol]1.9 mg/dLNormal1.9-2.7The [facility] HealthComment on above:Order Comment: No: Do not add to previous draw Performed By: #### 26905 #### [facility] [address] [place] [address], USAPOC GLUCOSE LABon [id number] [Mass/Vol]268 mg/dLHigh 70-100The [facility] HealthComment on above:Performed By: #### 91383 #### [facility] [address] [place] [address], USAGlucose [Mass/Vol]255 mg/eTFaqd70-052Nnk [facility] HealthComment on above:Performed By: #### 04740 #### [facility] [address] [place] [address], USAGlucose [Mass/Vol]173 mg/qNQdwl85-786Hwp [facility] HealthComment on above:Performed By: #### 29333 #### [facility] [address] [place] [address], USAGlucose [Mass/Vol]193 mg/hKTdpv43-241Egn [facility] HealthComment on above:Performed By: #### 90934, 56943, 48303 #### [facility] [address] [place] [address], USAGlucose [Mass/Vol]185 mg/xRKyob11-349Bli [facility] HealthComment on above:Performed By: #### 97630, 42273, 32276 #### [facility] [address] [place] [address], USAUFH HEPARIN ASSAYon [id number] HEPARIN<0.10 Critically low0.30-0.70The [facility] HealthComment on above: Result Comment: RESULTS CHECKED AND CALLED. ACCURATELY READ BACK BY Jessa Schaefer RN at 2200 PMW 07-02-22. Rivaroxaban and Apixaban will interfere with the anti Xa assay used to monitor UFH and LMWH.Performed By: #### 56581 #### [facility] [address] [place] [address], USABASIC METABOLIC PANELon [id number] [Mass/Vol]8.5 mg/dLLow8.6-10.3The [facility] HealthComment on above:Order Comment: No: Do not add to previous drawPerformed By: #### 16343, 99203 #### [facility] [address] [place] [address], USAChloride [Moles/Vol]105 mmol/SYwsxxx53-907Pwa [facility] HealthComment on above:Order Comment: No: Do not add to previous drawPerformed By: #### 75104, 82098 #### [facility] [address] [place] [address], USACO2 [Moles/Vol]22 mmol/LTglkir63-61Arv [facility] HealthComment on above:Order Comment: No: Do not add to previous draw Performed By: #### 29094, 03792 #### [facility] [address] [place] [address], USACreatinine [Mass/Vol]0.57 mg/dLLow0.60-1.20The [facility] HealthComment on above:Order Comment: No: Do not add to previous drawPerformed By: #### 44923, 08698 #### [facility] [address] [place] [address], USAGFR/1.73 sq M.predicted among non-blacks MDRD (S/P/Bld) [Vol rate/Area]mL/min/{1.73_m2}Normal>60The [facility] Comment on above:Order Comment: No: Do not add to previous drawResult Comment: The [facility]'s estimated glomerular filtration rate (eGFR) will no [...] not disproportionately affect any one group of individuals.Performed By: #### 55896, 45566 #### [facility] [address] [place] [address], USAGlucose [Mass/Vol]164 mg/vHWrbh09-230Bwn [facility] HealthComment on above:Order Comment: No: Do not add to previous drawPerformed By: #### 41937, 23495 #### [facility] [address] [place] [address], USAPotassium [Moles/Vol]3.8 mmol/LNormal3.5-5.1The [facility] HealthComment on above:Order Comment: No: Do not add to previous drawPerformed By: #### 32486, 50574 #### [facility] [address] [place] [address], USASodium [Moles/Vol]137 mmol/JNdzftd861-955Max [facility] HealthComment on above:Order Comment: No: Do not add to previous drawPerformed By: #### 85402, 61378 #### [facility] [address] [place] [address], USAUrea nitrogen [Mass/Vol]18 mg/dLNormal7-25The [facility] HealthComment on above:Order Comment: No: Do not add to previous drawPerformed By: #### 01745, 18394 #### [facility] [address] [facility] [place] [place] [address], [facility]OSPITALCBC W/DIFFon [id number] IMM GRANS0.1 10*3/uLNormal 0.0-0.2The [facility] HealthComment on above:Order Comment: No: Do not add to previous drawPerformed By: #### 07949 #### [facility] [address] [facility] [place] [address], USAABS NEUTROPHILS5.1 10*3/uLNormal1.6-7.6The [facility] HealthComment on above:Order Comment: No: Do not add to previous drawPerformed By: #### 36929 #### [facility] [address] [facility] [place] [place] [address], USABasophils (Bld) [#/Vol]0.1 10*3/uLNormal0.0-0.2The [facility] HealthComment on above:Order Comment: No: Do not add to previous drawPerformed By: #### 42159 #### [facility] [address] [place] [address], USABasophils/100 WBC (Bld)0.6 %Normal0.0-1.0The [facility] HealthComment on above:Order Comment: No: Do not add to previous drawPerformed By: #### 82115 #### [facility] [address] [place] [address], USAEosinophils (Bld) [#/Vol]0.3 10*3/uLNormal0.0-0.5The Parkview HealthComment on above:Order Comment: No: Do not add to previous drawPerformed By: #### [id number] #### [facility] [address] [place] [address], USAEosinophils/100 WBC (Bld)2.8 %Normal0.0-6.0The Parkview HealthComment on above:Order Comment: No: Do not add to previous drawPerformed By: #### [id number] #### [facility] [address] [facility] [place] [address], USAErythrocyte distribution width (RBC) [Ratio]13.3 %Normal 11.5-15.0The Parkview HealthComment on above:Order Comment: No: Do not add to previous drawPerformed By: #### [id number] #### [facility] [address] [facility] [place] [address], USAHematocrit (Bld) [Volume fraction]32.6 %Low36.0-45.0The Parkview HealthComment on above:Order Comment: No: Do not add to previous drawPerformed By: #### [id number] #### [facility] [address] [facility] [place] [address], USAHemoglobin (Bld) [Mass/Vol]10.6 g/dLLow12.0-15.0The Parkview HealthComment on above:Order Comment: No: Do not add to previous drawPerformed By: #### [id number] #### [facility] [address] [place] [address], USAIMMATURE GRANS0.7 %Normal0.0-1.0The Parkview HealthComment on above:Order Comment: No: Do not add to previous draw Performed By: #### [id number] #### [facility] [address] [place] [address], USALymphocytes (Bld) [#/Vol]2.4 10*3/uLNormal1.2-4.0The Parkview HealthComment on above:Order Comment: No: Do not add to previous drawPerformed By: #### 51526 #### [facility] [address] [place] [address], USALymphocytes/100 WBC (Bld)26.6 %Xeqvcp20.0-45.0The Parkview HealthComment on above:Order Comment: No: Do not add to previous drawPerformed By: #### 11607 #### [facility] [address] [place] [address], [facility] (RBC) [Entitic mass]27.0 stVbkdyv14.0-33.0The Parkview HealthComment on above:Order Comment: No: Do not add to previous drawPerformed By: #### [id number] #### [facility] [address] [place] [address], [facility]PITALMCHC (RBC) [Mass/Vol]32.5 g/ySHnmgff52.0-35.0The Parkview HealthComment on above:Order Comment: No: Do not add to previous drawPerformed By: #### [id number] #### [facility] [address] [place] [address], [facility] HOSPITALMCV (RBC) [Entitic vol]83.0 nTJxeskx42.0-98.0The Parkview HealthComment on above:Order Comment: No: Do not add to previous drawPerformed By: #### [id number] #### [facility] [address] [place] [address], USAMonocytes (Bld) [#/Vol]1.2 10*3/uLHigh0.1-1.0The Parkview HealthComment on above:Order Comment: No: Do not add to previous drawPerformed By: #### [id number] #### [facility] [address] [place] [address], NPYFKZBB62.0 %High5.0-12.0The Parkview HealthComment on above:Order Comment: No: Do not add to previous drawPerformed By: #### 92329 #### [facility] [address] [place] [address], USANeutrophils/100 WBC (Bld)56.3 %Azbeuo89.0-72.0The Parkview HealthComment on above:Order Comment: No: Do not add to previous drawPerformed By: #### 64932 #### [facility] [address] [place] [address], USANucleated RBC/100 WBC (Bld) [Ratio]0 %Normal0-0The Parkview HealthComment on above:Order Comment: No: Do not add to previous drawPerformed By: #### [id number] #### [facility] [address] [place] [address], USAPLAT [id number] 10*3/cUKmcuxz533-431Rvw Park[facility] HealthComment on above:Order Comment: No: Do not add to previous draw Performed By: #### [id number] #### [facility] [address] [place] [address], USARBC (Bld) [#/Vol]3.93 10*6/uLNormal3.80-5.00The Parkview HealthComment on above:Order Comment: No: Do not add to previous drawPerformed By: #### 62962 #### [facility] [address] [place] [address], USAWBC (Bld) [#/Vol]9.05 10*3/uLNormal4.00-10.60The Parkview HealthComment on above:Order Comment: No: Do not add to previous drawPerformed By: #### 85972 #### [facility] [address] [place] [address], USAMAGNESIUM BLOODon 65-86-6713Zbclzolls [Mass/Vol]1.7 mg/dL Low1.9-2.7The Parkview HealthComment on above:Order Comment: No: Do not add to previous drawPerformed By: #### 47295, 57590 #### [facility] [address] [place] [address], USAPOC GLUCOSE LABon 56-78-9235Gckcohe [Mass/Vol]253 mg/dLHigh 70-100The Parkview HealthComment on above:Performed By: #### 61715 #### [facility] [address] [place] [address], USAGlucose [Mass/Vol]160 mg/vILpvi09-850Psq Parkview HealthComment on above:Performed By: #### 40255 #### [facility] [address] [place] [address], USAGlucose [Mass/Vol]174 mg/rBYwri55-048Kzs [facility] HealthComment on above:Performed By: #### 57104 #### [facility] [address] [place] [address], USAGlucose [Mass/Vol]185 mg/fOSknp46-695Cdd Park[facility] HealthComment on above:Performed By: #### 74571 #### [facility] [address] [place] [address], USAGlucose [Mass/Vol]176 mg/iLOlvn48-209Mil Parkview HealthComment on above:Performed By: #### 91494 #### [facility] [address] [place] [address], USAUFH HEPARIN ASSAYon 48-30-7953YKOOCVFNJYSILU HEPARIN0.88 IU/mLHigh0.30-0.70The Parkview HealthComment on above:Result Comment: Rivaroxaban and Apixaban will interfere with the anti Xa assay used to monitor UFH and LMWH.Performed By: #### 87495 #### [facility] [address] [place] [address], USABASIC METABOLIC PANELon 02-97-1210Ujlgwsr [Mass/Vol]8.5 mg/dLLow8.6-10.3The Parkview HealthComment on above:Order Comment: No: Do not add to previous drawPerformed By: #### 17209, 68467, 69806 #### [facility] [address] [place] [address], USAChloride [Moles/Vol]103 mmol/EAmdqso48-844Fve [facility] HealthComment on above:Order Comment: No: Do not add to previous drawPerformed By: #### 34216, 16290, 19205 #### [facility] [address] [place] [address], USACO2 [Moles/Vol]25 mmol/TOkcxfu31-87Fuw [facility] HealthComment on above:Order Comment: No: Do not add to previous draw Performed By: #### 70093, 52010, 00816 #### [facility] [address] [place] [address], USACreatinine [Mass/Vol]0.50 mg/dLLow0.60-1.20The Parkview HealthComment on above:Order Comment: No: Do not add to previous drawPerformed By: #### 04684, 57265, 46907 #### [facility] [address] [place] [address], USAGFR/1.73 sq M.predicted among non-blacks MDRD (S/P/Bld) [Vol rate/Area]mL/min/{1.73_m2}Normal>60The [facility] Comment on above:Order Comment: No: Do not add to previous drawResult Comment: The [facility]'s estimated glomerular filtration rate (eGFR) will no [...] not disproportionately affect any one group of individuals.Performed By: #### 70017, 22995, 60617 #### [facility] [address] [facility] [place] [address], USAGlucose [Mass/Vol]166 mg/pUCwkn06-834Sub Park[facility] HealthComment on above:Order Comment: No: Do not add to previous drawPerformed By: #### 80754, 29608, 61658 #### [facility] [address] [facility] [place] [address], USAPotassium [Moles/Vol]3.3 mmol/LLow3.5-5.1The Parkview HealthComment on above:Order Comment: No: Do not add to previous drawPerformed By: #### 95072, 74568, 86356 #### [facility] [address] [place] [address], USASodium [Moles/Vol]138 mmol/QYuvlks432-672Viw [facility] HealthComment on above:Order Comment: No: Do not add to previous drawPerformed By: #### 73316, 12726, 56194 #### [facility] [address] [place] [address], USAUrea nitrogen [Mass/Vol]17 mg/dLNormal7-25The Park[facility] HealthComment on above:Order Comment: No: Do not add to previous drawPerformed By: #### 62668, 13156, 53072 #### [facility] [address] [facility] [place] [address], USACBC W/DIFFon [id number] IMM GRANS0.1 10*3/uLNormal 0.0-0.2The Parkview HealthComment on above:Order Comment: No: Do not add to previous draw No collection time noted on specimen or requisition. The collection time recorded is the time of receipt in the lab.Performed By: #### 26147 #### [facility] [address] [facility] [place] [address], USAABS NEUTROPHILS4.4 10*3/uLNormal1.6-7.6The Parkview HealthComment on above:Order Comment: No: Do not add to previous draw No collection time noted on specimen or requisition. The collection time recorded is the time of receipt in the lab.Performed By: #### 63261 #### [facility] [address] [facility] [place] [address], [facility] HOSPITALBasophils (Bld) [#/Vol]0.1 10*3/uLNormal0.0-0.2The Parkview HealthComment on above:Order Comment: No: Do not add to previous draw No collection time noted on specimen or requisition. The collection time recorded is the time of receipt in the lab.Performed By: #### 92700 #### [facility] [address] [facility] [place] [place] [address], [facility] HOSPITALBasophils/100 WBC (Bld)0.6 %Normal0.0-1.0The Parkview HealthComment on above:Order Comment: No: Do not add to previous draw No collection time noted on specimen or requisition. The collection time recorded is the time of receipt in the lab.Performed By: #### 27159 #### [facility] [address] [facility] [place] [address], [facility] HOSPITALEosinophils (Bld) [#/Vol]0.3 10*3/uLNormal0.0-0.5The Parkview HealthComment on above:Order Comment: No: Do not add to previous draw No collection time noted on specimen or requisition. The collection time recorded is the time of receipt in the lab.Performed By: #### 01852 #### [facility] [address] [place] [address], USAEosinophils/100 WBC (Bld)3.3 %Normal0.0-6.0The Park[facility] HealthComment on above:Order Comment: No: Do not add to previous draw No collection time noted on specimen or requisition. The collection time recorded is the time of receipt in the lab.Performed By: #### 56070 #### [facility] [address] [place] [address], USAErythrocyte distribution width (RBC) [Ratio]13.2 %Normal 11.5-15.0The Park[facility] HealthComment on above:Order Comment: No: Do not add to previous draw No collection time noted on specimen or requisition. The collection time recorded is the time of receipt in the lab.Performed By: #### 25052 #### [facility] [address] [place] [address], USAHematocrit (Bld) [Volume fraction]35.3 %Low36.0-45.0The Parkview HealthComment on above:Order Comment: No: Do not add to previous draw No collection time noted on specimen or requisition. The collection time recorded is the time of receipt in the lab.Performed By: #### 98189 #### [facility] [address] [place] [address], USAHemoglobin (Bld) [Mass/Vol]11.2 g/dLLow12.0-15.0The Park[facility] HealthComment on above:Order Comment: No: Do not add to previous draw No collection time noted on specimen or requisition. The collection time recorded is the time of receipt in the lab.Performed By: #### 67942 #### [facility] [address] [facility] [place] [address], USAIMMATURE GRANS0.7 %Normal0.0-1.0The Park[facility] HealthComment on above:Order Comment: No: Do not add to previous draw No collection time noted on specimen or requisition. The collection time recorded is the time of receipt in the lab.Performed By: #### 31865 #### [facility] [address] [facility] [place] [address], USALymphocytes (Bld) [#/Vol]2.3 10*3/uLNormal1.2-4.0The Park[facility] HealthComment on above:Order Comment: No: Do not add to previous draw No collection time noted on specimen or requisition. The collection time recorded is the time of receipt in the lab.Performed By: #### 38868 #### [facility] [address] [facility] [place] [address], USALymphocytes/100 WBC (Bld)28.1 %Fwnswm71.0-45.0The Park[facility] HealthComment on above:Order Comment: No: Do not add to previous draw No collection time noted on specimen or requisition. The collection time recorded is the time of receipt in the lab.Performed By: #### 79339 #### [facility] [address] [facility] [place] [address], USAMCH (RBC) [Entitic mass]26.3 pgLow27.0-33.0The Parkview HealthComment on above:Order Comment: No: Do not add to previous draw No collection time noted on specimen or requisition. The collection time recorded is the time of receipt in the lab.Performed By: #### 86646 #### [facility] [address] [facility] [address], [facility] HOSPITALMCHC (RBC) [Mass/Vol]31.7 g/dLLow32.0-35.0The Park[facility] HealthComment on above:Order Comment: No: Do not add to previous draw No collection time noted on specimen or requisition. The collection time recorded is the time of receipt in the lab.Performed By: #### 73906 #### [facility] [address] [facility] [place] [address], [facility] HOSPITALMCV (RBC) [Entitic vol]82.9 gCAxmjqh16.0-98.0The Park[facility] HealthComment on above:Order Comment: No: Do not add to previous draw No collection time noted on specimen or requisition. The collection time recorded is the time of receipt in the lab.Performed By: #### 75290 #### [facility] [address] [facility] [place] [address], USAMonocytes (Bld) [#/Vol]1.1 10*3/uLHigh0.1-1.0The Park[facility] HealthComment on above:Order Comment: No: Do not add to previous draw No collection time noted on specimen or requisition. The collection time recorded is the time of receipt in the lab.Performed By: #### 06371 #### [facility] [address] [facility] [place] [address], JAPBUCCJ10.3 %High5.0-12.0The Park[facility] HealthComment on above:Order Comment: No: Do not add to previous draw No collection time noted on specimen or requisition. The collection time recorded is the time of receipt in the lab.Performed By: #### 94181 #### [facility] [address] [facility] [place] [place] [address], USANeutrophils/100 WBC (Bld)54.0 %Hjtscq35.0-72.0The Park[facility] HealthComment on above:Order Comment: No: Do not add to previous draw No collection time noted on specimen or requisition. The collection time recorded is the time of receipt in the lab.Performed By: #### 73922 #### [facility] [address] [facility] [place] [place] [address], USANucleated RBC/100 WBC (Bld) [Ratio]0 %Normal0-0The Park[facility] HealthComment on above:Order Comment: No: Do not add to previous draw No collection time noted on specimen or requisition. The collection time recorded is the time of receipt in the lab.Performed By: #### 95959 #### [facility] [address] [facility] [place] [place] [address], USAPLAT [id number] 10*3/dNBeingz130-973Nah [facility] HealthComment on above:Order Comment: No: Do not add to previous draw No collection time noted on specimen or requisition. The collection time recorded is the time of receipt in the lab.Performed By: #### 43605 #### [facility] [address] [facility] [place] [place] [address], USARBC (Bld) [#/Vol]4.26 10*6/uLNormal3.80-5.00The Park[facility] HealthComment on above:Order Comment: No: Do not add to previous draw No collection time noted on specimen or requisition. The collection time recorded is the time of receipt in the lab.Performed By: #### 75686 #### [facility] [address] [facility] [place] [place] [address], [facility] HOSPITALWBC (Bld) [#/Vol]8.18 10*3/uLNormal4.00-10.60The Park[facility] HealthComment on above:Order Comment: No: Do not add to previous draw No collection time noted on specimen or requisition. The collection time recorded is the time of receipt in the lab.Performed By: #### 79206 #### [facility] [address] [facility] [place] [place] [address], USAMAGNESIUM BLOODon 56-78-3793Otrlquukj [Mass/Vol]1.8 mg/dL Low1.9-2.7The Parkview HealthComment on above:Order Comment: No: Do not add to previous drawPerformed By: #### 46696, 27545, 99413 #### [facility] [address] [place] [address], USAPOC GLUCOSE LABon 50-63-4903Kdbhndr [Mass/Vol]266 mg/dLHigh 70-100The Park[facility] HealthComment on above:Performed By: #### 31826 #### [facility] [address] [facility] [place] [address], USAGlucose [Mass/Vol]346 mg/lOTgjl45-418Nbh [facility] HealthComment on above:Performed By: #### 06178, 76166, 86684 #### [facility] [address] [place] [address], USAGlucose [Mass/Vol]206 mg/lMRund07-618Cky [facility] HealthComment on above:Performed By: #### 36230, 45142, 05282 #### [facility] [address] [facility] [place] [address], USATROPONIN-Ion 76-81-7079Ppuuvjvd I.cardiac [Mass/Vol]1.03 ng/mLCritically high0.00-0.04The Parkview HealthComment on above:Result Comment: M-PREVIOUS CRITICAL RESULT REFERENCE RANGES: 0.00 - 0.04 ng/ml NORMAL 0.05 - 0.50 ng/ml INDETERMINATE > 0.50 ng/ml CONSISTENT WITH AN M.I.Performed By: #### 55906, 28853, 41928 #### [facility] [address] [facility] [place] [address], USAUFH HEPARIN ASSAYon [id number] HEPARIN0.70 IU/mLNormal0.30-0.70The Park[facility] HealthComment on above: Result Comment: Rivaroxaban and Apixaban will interfere with the anti Xa assay used to monitor UFH and LMWH.Performed By: #### 88167 #### [facility] [address] [place] [address], USAUNFRACTIONATED HEPARIN0.61 IU/mLNormal0.30-0.70The Park[facility] HealthComment on above:Result Comment: Rivaroxaban and Apixaban will interfere with the anti Xa assay used to monitor UFH and LMWH.Performed By: #### 36632 #### [facility] [address] [place] [address], USAUNFRACTIONATED HEPARIN0.85 IU/mLHigh0.30-0.70The Park[facility] HealthComment on above:Result Comment: Rivaroxaban and Apixaban will interfere with the anti Xa assay used to monitor UFH and LMWH.Performed By: #### 45693 #### [facility] [address] [facility] [place] [address], [facility] HOSPITALCBC COMPLETE BLOOD COUNTon 32-95-5466Qhbkkotgtpi distribution width (RBC) [Ratio]13.4 %Bangpu27.5-15.0The Park[facility] HealthComment on above:Order Comment: No: Do not add to previous draw Performed By: #### 60428 #### [facility] [address] [facility] [place] [address], USAHematocrit (Bld) [Volume fraction]34.3 %Low36.0-45.0The [facility] HealthComment on above:Order Comment: No: Do not add to previous drawPerformed By: #### 87937 #### [facility] [address] [facility] [place] [address], USAHemoglobin (Bld) [Mass/Vol]11.3 g/dLLow12.0-15.0The [facility] HealthComment on above:Order Comment: No: Do not add to previous drawPerformed By: #### 15557 #### [facility] [address] [facility] [place] [address], [facility] (RBC) [Entitic mass]27.2 jmEuiovl25.0-33.0The [facility] HealthComment on above:Order Comment: No: Do not add to previous drawPerformed By: #### 23865 #### [facility] [address] [place] [address], [facility]HC (RBC) [Mass/Vol]32.9 g/eWLageyf61.0-35.0The [facility] HealthComment on above:Order Comment: No: Do not add to previous drawPerformed By: #### 06910 #### [facility] [address] [facility] [address], [facility]V (RBC) [Entitic vol]82.7 pYQbafnm90.0-98.0The [facility] HealthComment on above:Order Comment: No: Do not add to previous drawPerformed By: #### 25184 #### [facility] [address] [place] [address], [facility] HOSPITALNucleated RBC/100 WBC (Bld) [Ratio]0 %Normal0-0The [facility] HealthComment on above:Order Comment: No: Do not add to previous drawPerformed By: #### 83535 #### [facility] [address] [place] [address], USAPLAT [id number] 10*3/uNSmpikj740-595Qrk [facility] HealthComment on above:Order Comment: No: Do not add to previous draw Performed By: #### 17224 #### [facility] [address] [facility] [place] [address], [facility] HOSPITALRBC (Bld) [#/Vol]4.15 10*6/uLNormal3.80-5.00The [facility] HealthComment on above:Order Comment: No: Do not add to previous drawPerformed By: #### 63814 #### [facility] [address] [facility]. [place] [id number], USAWBC (Bld) [#/Vol]7.28 10*3/uLNormal4.00-10.60The [facility] HealthComment on above:Order Comment: No: Do not add to previous drawPerformed By: #### 42940 #### [facility] [address] [facility] [place] [place] [address], USAErythrocyte distribution width (RBC) [Ratio]13.3 %Normal 11.5-15.0The [facility] HealthComment on above:Order Comment: No: Do not add to previous draw No collection time noted on specimen or requisition. The collection time recorded is the time of receipt in the lab.Performed By: #### 69209 #### [facility] [address] [facility] [place] [place] [address], USAHematocrit (Bld) [Volume fraction]33.4 %Low36.0-45.0The Park[facility] HealthComment on above:Order Comment: No: Do not add to previous draw No collection time noted on specimen or requisition. The collection time recorded is the time of receipt in the lab.Performed By: #### 83639 #### [facility] [address] [facility] [place] [place] [address], USAHemoglobin (Bld) [Mass/Vol]10.8 g/dLLow12.0-15.0The [facility] HealthComment on above:Order Comment: No: Do not add to previous draw No collection time noted on specimen or requisition. The collection time recorded is the time of receipt in the lab.Performed By: #### 55825 #### [facility] [address] [facility]. [place] [id number], USAMCH (RBC) [Entitic mass]26.8 pgLow27.0-33.0The [facility] HealthComment on above:Order Comment: No: Do not add to previous draw No collection time noted on specimen or requisition. The collection time recorded is the time of receipt in the lab.Performed By: #### 59521 #### [facility] [address] [facility] [place] [address], [facility] HOSPITALMCHC (RBC) [Mass/Vol]32.3 g/mPVqdclx01.0-35.0The [facility] HealthComment on above:Order Comment: No: Do not add to previous draw No collection time noted on specimen or requisition. The collection time recorded is the time of receipt in the lab.Performed By: #### 71716 #### [facility] [address] [facility] [place] [address], [facility] HOSPITALMCV (RBC) [Entitic vol]82.9 mNFhyzag75.0-98.0The [facility] HealthComment on above:Order Comment: No: Do not add to previous draw No collection time noted on specimen or requisition. The collection time recorded is the time of receipt in the lab.Performed By: #### 09577 #### [facility] [address] [facility] [place] [place] [address], USANucleated RBC/100 WBC (Bld) [Ratio]0 %Normal0-0The [facility] HealthComment on above:Order Comment: No: Do not add to previous draw No collection time noted on specimen or requisition. The collection time recorded is the time of receipt in the lab.Performed By: #### [id number] #### [facility] [address] [facility] [place] [address], USAPLAT [id number] 10*3/cWTcqdwh547-572Hlf [facility] HealthComment on above:Order Comment: No: Do not add to previous draw No collection time noted on specimen or requisition. The collection time recorded is the time of receipt in the lab.Performed By: #### 01374 #### [facility] [address] [facility] [place] [address], [facility] HOSPITALRBC (Bld) [#/Vol]4.03 10*6/uLNormal3.80-5.00The [facility] HealthComment on above:Order Comment: No: Do not add to previous draw No collection time noted on specimen or requisition. The collection time recorded is the time of receipt in the lab.Performed By: #### 05036 #### [facility] [address] [facility] [place] [address], USAWBC (Bld) [#/Vol]7.85 10*3/uLNormal4.00-10.60The [facility] HealthComment on above:Order Comment: No: Do not add to previous draw No collection time noted on specimen or requisition. The collection time recorded is the time of receipt in the lab.Performed By: #### [id number] #### [facility] [address] [facility] [place] [place] [address], USACBC W/DIFFon [id number] IMM GRANS0.0 10*3/uLNormal 0.0-0.2The Park[facility] HealthComment on above:Order Comment: No collection time noted on specimen or requisition. The collection timerecorded is the time of receipt in the lab.Performed By: #### [id number] #### [facility] [address] [facility] [place] [place] [address], USAABS NEUTROPHILS5.2 10*3/uLNormal1.6-7.6The Parkview HealthComment on above:Order Comment: No collection time noted on specimen or requisition. The collection timerecorded is the time of receipt in the lab.Performed By: #### [id number] #### [facility] [address] [facility] [place] [address], USABasophils (Bld) [#/Vol]0.0 10*3/uLNormal0.0-0.2The Park[facility] HealthComment on above:Order Comment: No collection time noted on specimen or requisition. The collection timerecorded is the time of receipt in the lab.Performed By: #### [id number] #### [facility] [address] [facility] [place] [address], USABasophils/100 WBC (Bld)0.5 %Normal0.0-1.0The Park[facility] HealthComment on above:Order Comment: No collection time noted on specimen or requisition. The collection timerecorded is the time of receipt in the lab.Performed By: #### [id number] #### [facility] [address] [facility] [address], USAEosinophils (Bld) [#/Vol]0.1 10*3/uLNormal0.0-0.5The [facility] HealthComment on above:Order Comment: No collection time noted on specimen or requisition. The collection timerecorded is the time of receipt in the lab.Performed By: #### [id number] #### [facility] [address] [facility]. [place] [id number], USAEosinophils/100 WBC (Bld)1.3 %Normal0.0-6.0The [facility] HealthComment on above:Order Comment: No collection time noted on specimen or requisition. The collection timerecorded is the time of receipt in the lab.Performed By: #### [id number] #### [facility] [address] [facility] [place] [address], USAErythrocyte distribution width (RBC) [Ratio]13.3 %Normal 11.5-15.0The Park[facility] HealthComment on above:Order Comment: No collection time noted on specimen or requisition. The collection timerecorded is the time of receipt in the lab.Performed By: #### [id number] #### [facility] [address] [facility] [place] [address], USAHematocrit (Bld) [Volume fraction]34.0 %Low36.0-45.0The Park[facility] HealthComment on above:Order Comment: No collection time noted on specimen or requisition. The collection timerecorded is the time of receipt in the lab.Performed By: #### [id number] #### [facility] [address] [facility] [place] [address], USAHemoglobin (Bld) [Mass/Vol]11.4 g/dLLow12.0-15.0The [facility] HealthComment on above:Order Comment: No collection time noted on specimen or requisition. The collection timerecorded is the time of receipt in the lab.Performed By: #### [id number] #### [facility] [address] [facility] [place] [address], USAIMMATURE GRANS0.4 %Normal0.0-1.0The [facility] HealthComment on above:Order Comment: No collection time noted on specimen or requisition. The collection timerecorded is the time of receipt in the lab.Performed By: #### [id number] #### [facility] [address] [facility] [place] [address], USALymphocytes (Bld) [#/Vol]1.5 10*3/uLNormal1.2-4.0The [facility] HealthComment on above:Order Comment: No collection time noted on specimen or requisition. The collection timerecorded is the time of receipt in the lab.Performed By: #### [id number] #### [facility] [address] [facility] [place] [address], USALymphocytes/100 WBC (Bld)19.5 %Low20.0-45.0The [facility] HealthComment on above:Order Comment: No collection time noted on specimen or requisition. The collection timerecorded is the time of receipt in the lab.Performed By: #### [id number] #### [facility] [address] [facility] [place] [address], USAMCH (RBC) [Entitic mass]27.7 zzGqchga33.0-33.0The [facility] HealthComment on above:Order Comment: No collection time noted on specimen or requisition. The collection timerecorded is the time of receipt in the lab.Performed By: #### [id number] #### [facility] [address] [place] [address], [facility] GENERAL HOSPITALMCHC (RBC) [Mass/Vol]33.5 g/mKAovimg99.0-35.0The [facility] HealthComment on above:Order Comment: No collection time noted on specimen or requisition. The collection timerecorded is the time of receipt in the lab.Performed By: #### [id number] #### [facility] [address] [facility] [address], [facility] GENERAL HOSPITALMCV (RBC) [Entitic vol]82.7 vDHfujhx28.0-98.0The [facility] HealthComment on above:Order Comment: No collection time noted on specimen or requisition. The collection timerecorded is the time of receipt in the lab.Performed By: #### 62671 #### [facility] [address] [facility] [place] [address], USAMonocytes (Bld) [#/Vol]1.0 10*3/uLNormal0.1-1.0The [facility] HealthComment on above:Order Comment: No collection time noted on specimen or requisition. The collection timerecorded is the time of receipt in the lab.Performed By: #### [id number] #### [facility] [address] [facility] [place] [address], ZBGXSCHB46.5 %High5.0-12.0The [facility] HealthComment on above:Order Comment: No collection time noted on specimen or requisition. The collection timerecorded is the time of receipt in the lab. Performed By: #### [id number] #### [facility] [address] [facility]. [place] [id number], USANeutrophils/100 WBC (Bld)65.8 %Fiplqv14.0-72.0The [facility] HealthComment on above:Order Comment: No collection time noted on specimen or requisition. The collection timerecorded is the time of receipt in the lab.Performed By: #### [id number] #### [facility] [address] [place] [address], USANucleated RBC/100 WBC (Bld) [Ratio]0 %Normal0-0The [facility] HealthComment on above:Order Comment: No collection time noted on specimen or requisition. The collection timerecorded is the time of receipt in the lab.Performed By: #### [id number] #### [facility] [address] [place] [address], USAPLAT MQE745 10*3/xIImgsea310-598Xfl [facility] HealthComment on above:Order Comment: No collection time noted on specimen or requisition. The collection timerecorded is the time of receipt in the lab.Performed By: #### [id number] #### [facility] [address] [facility] [place] [place] [address], USARBC (Bld) [#/Vol]4.11 10*6/uLNormal3.80-5.00The [facility] HealthComment on above:Order Comment: No collection time noted on specimen or requisition. The collection timerecorded is the time of receipt in the lab.Performed By: #### [id number] #### [facility] [address] [place] [address], USAWBC (Bld) [#/Vol]7.91 10*3/uLNormal4.00-10.60The [facility] HealthComment on above:Order Comment: No collection time noted on specimen or requisition. The collection timerecorded is the time of receipt in the lab.Performed By: #### 15286 #### [facility] [address] [facility] [place] [place] [address], USACOMP METABOLIC PANELon 08-90-7592Gvvainc [Mass/Vol]2.9 g/dL Low3.5-5.7The Park[facility] HealthComment on above:Order Comment: No: Do not add to previous draw No collection time noted on specimen or requisition. The collection time recorded is the time of receipt in the lab.Performed By: #### 26778 #### [facility] [address] [place] [address], USAALKALINE FWWHWR03 IU/QQiiytn87-249Gvb [facility] HealthComment on above:Order Comment: No: Do not add to previous draw No collection time noted on specimen or requisition. The collection time recorded is the time of receipt in the lab.Performed By: #### [id number] #### [facility] [address] [place] [address], USAALT [Catalytic activity/Vol]21 U/LNormal7-52The [facility] HealthComment on above:Order Comment: No: Do not add to previous draw No collection time noted on specimen or requisition. The collection time recorded is the time of receipt in the lab.Performed By: #### 28914 #### [facility] [address] [place] [address], USAAST [Catalytic activity/Vol]27 U/KYgibbn80-51Yqd [facility] HealthComment on above:Order Comment: No: Do not add to previous draw No collection time noted on specimen or requisition. The collection time recorded is the time of receipt in the lab.Performed By: #### 97047 #### [facility] [address] [place] [address], USABilirubin [Mass/Vol]0.5 mg/dLNormal0.3-1.0The [facility] HealthComment on above:Order Comment: No: Do not add to previous draw No collection time noted on specimen or requisition. The collection time recorded is the time of receipt in the lab.Performed By: #### [id number] #### [facility] [address] [place] [address], USACalcium [Mass/Vol]8.2 mg/dLLow8.6-10.3The [facility] HealthCommymichigan medical center west branch on above:Order Comment: No: Do not add to previous draw No collection time noted on specimen or requisition. The collection time recorded is the time of receipt in the lab.Performed By: #### 86149 #### [facility] [address] [place] [address], USAChloride [Moles/Vol]101 mmol/ZHnoezw59-611Euy [facility] HealthComment on above:Order Comment: No: Do not add to previous draw No collection time noted on specimen or requisition. The collection time recorded is the time of receipt in the lab.Performed By: #### 10869 #### [facility] [address] [place] [address], USACO2 [Moles/Vol]22 mmol/JSgkfmi54-80Jgx [facility] HealthComment on above:Order Comment: No: Do not add to previous draw No collection time noted on specimen or requisition. The collection time recorded is the time of receipt in the lab.Performed By: #### 89069 #### [facility] [address] [place] [address], USACreatinine [Mass/Vol]0.45 mg/dLLow0.60-1.20The [facility] HealthComment on above:Order Comment: No: Do not add to previous draw No collection time noted on specimen or requisition. The collection time recorded is the time of receipt in the lab.Performed By: #### 63828 #### [facility] [address] [place] [address], USAGFR/1.73 sq M.predicted among non-blacks MDRD (S/P/Bld) [Vol rate/Area]mL/min/{1.73_m2}Normal>60The [facility] Comment on above:Order Comment: No: Do not add to previous draw No collection time noted on specimen or requisition. The collection time recorded is the time of receipt in the lab.Result Comment: The [facility]'s estimated glomerular filtration rate (eGFR) will no [...] not disproportionately affect any one group of individuals.Performed By: #### 82925 #### [facility] [address] [place] [address], USAGlucose [Mass/Vol]278 mg/jXBfts42-758Myw [facility] HealthComment on above:Order Comment: No: Do not add to previous draw No collection time noted on specimen or requisition. The collection time recorded is the time of receipt in the lab.Performed By: #### 74387 #### [facility] [address] [place] [address], USAPotassium [Moles/Vol]3.8 mmol/LNormal3.5-5.1The [facility] HealthComment on above:Order Comment: No: Do not add to previous draw No collection time noted on specimen or requisition. The collection time recorded is the time of receipt in the lab.Performed By: #### 46342 #### [facility] [address] [place] [address], USAProtein [Mass/Vol]5.3 g/dLLow6.0-8.3The [facility] HealthComment on above:Order Comment: No: Do not add to previous draw No collection time noted on specimen or requisition. The collection time recorded is the time of receipt in the lab.Performed By: #### 80721 #### [facility] [address] [place] [address], USASodium [Moles/Vol]133 mmol/TUjc818-546Whl [facility] HealthComment on above:Order Comment: No: Do not add to previous draw No collection time noted on specimen or requisition. The collection time recorded is the time of receipt in the lab.Performed By: #### 92496 #### [facility] [address] [place] [address], USAUrea nitrogen [Mass/Vol]19 mg/dLNormal7-25The [facility] HealthComment on above:Order Comment: No: Do not add to previous draw No collection time noted on specimen or requisition. The collection time recorded is the time of receipt in the lab.Performed By: #### 93058 #### [address] [address], USACTA CHESTon [id number] CHESTUnMiddletown Hospital Department of Radiology [address] [place] [id number] Patient Name: DIANN PATEL : 1955 Sex: F Age: Race: White Pt. Location: [facility] Patient Status: E Ordered Date: 2022 [...] fluid overload state or cardiac dysfunction/failure. Approved by:Eduardo Tineo06/29/2022 12:40 AM. I, Shane Baldwin,have reviewed the image(s) and agree with the findings in this report. Electronically signed: Shane Baldwin. Transcribed by: [email or web address], User Resident: EDUARDO RUSS Electronically Signed by: SHANE BALDWIN @ 06/29/2022 01:00 AM I personally read this/these film(s) with this residentMercy Health West HospitalComment on above:Order Comment: Pulmonary Embolism HEMOGLOBIN A1Con 98-79-3777Klftomf [Moles/Vol]111 mmol/LNormalThe Parkview HealthComment on above:Order Comment: No: Do not add to previous draw No collection time noted on specimen or requisition. The collection time recorded is the time of receipt in the lab.Performed By: #### [id number] #### [facility] [address] [place] [address], EMTYdG3b (Bld) [Mass fraction]5.5 %Normal4.0-6.0The [facility] HealthComment on above:Order Comment: No: Do not add to previous draw No collection time noted on specimen or requisition. The collection time recorded is the time of receipt in the lab.Performed By: #### 51465 #### [facility] [address] [facility] [address], USALIPID PROFILEon [id number] [Mass/Vol]223 mg/dL Wgfp982-941Nyr [facility] HealthComment on above:Result Comment: CHOLESTEROL REFERENCE RANGE: 20 YEARS AND OLDER CARDIOVASCULAR RISK Less than 200 mg/dl Low Risk 200 to 239 mg/dl Borderline Risk 240 mg/dl and greater High RiskPerformed By: #### 69592 #### [facility] [address] [facility] [place] [address], USACholesterol in HDL [Mass/Vol]28 mg/mXOtcsre82-13Mje [facility] HealthComment on above:Result Comment: Slight variation in normal range could be due to gender and/or age. HDL CHOLESTEROL REFERENCE RANGE: 20 years and older Cardiovascular Risk > or =60 mg/dL Desirable 40 TO 59 mg/dL Low Risk <40 mg/dL High RiskPerformed By: #### 09331 #### [facility] [address] [facility] [place] [address], USACholesterol in LDL [Mass/Vol]138 mg/dLHigh0-130The [facility] HealthComment on above:Result Comment: LDL IS A CALCULATION LDL IS ONLY VALID IF THE TRIG IS LESS THAN 400.Performed By: #### 36527 #### [facility] [address] [facility] [place] [address], USACholesterol.total/Cholesterol in HDL [Mass ratio]8.0 {ratio}High.0-4.5The [facility] HealthComment on above: Performed By: #### 79629 #### [facility] [address] [place] [address], USANON-HDL ZVTYMHCAMYX838 mg/dLNormLancaster Municipal HospitalComment on above:Performed By: #### 44267 #### [facility] [address] [place] [address], USATriglyceride [Mass/Vol]285 mg/mPQkga06-856Hak [facility] HealthComment on above:Result Comment: TRIGLYCERIDE REFERENCE RANGE: 20 YEARS AND OLDER CARDIOVASCULAR RISK LESS THAN 150 mg/dl LOW RISK 150 TO 199 mg/dl BORDERLINE RISK 200 mg/dl AND GREATER HIGH RISKPerformed By: #### 56045 #### [facility] [address] [place] [address], USAVLDL CHOL57 mg/dLHigh0-40Cherrington HospitalComment on above:Performed By: #### 95193 #### [facility] [address] [place] [address], USAPOC GLUCOSE LABon 32-73-2406Eymmxhj [Mass/Vol]190 mg/dLHigh 70-100The [facility] HealthComment on above:Performed By: #### 47639 #### [facility] [address] [place] [address], USAGlucose [Mass/Vol]256 mg/hAYpiy26-008Sqi [facility] HealthComment on above:Performed By: #### 39282 #### [facility] [address] [place] [address], USAGlucose [Mass/Vol]444 mg/cSReek69-015Pnx [facility] HealthComment on above:Performed By: #### 57825, 76184, 15184 #### [facility] [address] [place] [address], USAGlucose [Mass/Vol]304 mg/kHAxyr13-756Sfd [facility] HealthComment on above:Performed By: #### 22066, 49460, 22512 #### [facility] [address] [facility] [place] [place] [address], [facility] HOSPITALPO SARS COV2 ANTIGEN NEGATIVEon 55-62-7596DFD SARS COV2 ANTIGEN NEGNegativeNormalNEGATIVEThe Park[facility] HealthComment on above:Result Comment: Negative results should be treated as presumptive and [...] antigen from SARS-CoV-2 in direct nasopharyngeal swab (CREDIT ADMINISTRATION SPECIALIST) specimens from individuals who are suspected of [...] Waiver, Certificate of Compliance, or Certificate of Accreditation.Performed By: #### [id number] #### [facility] [address] [facility] [place] [address], USATROPONIN-Ion 33-60-5766Gbclobyl I.cardiac [Mass/Vol]1.52 ng/mLCritically high0.00-0.04The [facility] HealthComment on above:Order Comment: No: Do not add to previous draw No collection time noted on specimen or requisition. The collection time recorded is the time of receipt in the lab.Result Comment: M-PREVIOUS CRITICAL RESULT REFERENCE RANGES: 0.00 - 0.04 ng/ml NORMAL 0.05 - 0.50 ng/ml INDETERMINATE > 0.50 ng/ml CONSISTENT WITH AN M.I.Performed By: #### 03030 #### [facility] [address] [place] [address], USATroponin I.cardiac [Mass/Vol]1.77 ng/mLCritically high 0.00-0.04The [facility] HealthComment on above:Order Comment: No: Do not add to previous draw No collection time noted on specimen or requisition. The collection time recorded is the time of receipt in the lab.Result Comment: M-TROPONIN INITIAL CRITICAL HIGH; RESPUN AND RETESTED M-CRITICAL RESULT(S) REVIEWED, CALLED TO AND READ BACK BY DR MORALES AT 2321 REFERENCE RANGES: 0.00 - 0.04 ng/ml NORMAL 0.05 - 0.50 ng/ml INDETERMINATE > 0.50 ng/ml CONSISTENT WITH AN M.I.Performed By: #### 13054 #### [facility] [address] [facility] [place] [place] [address], USATSH3 WITH REFLEX FT4on [id number] 3RD GENERATION1.96 uIU/mLNormal0.34-5.60The [facility] HealthComment on above: Performed By: #### 54887 #### [facility] [address] [facility] [place] [address], USAUFH HEPARIN ASSAYon 71-29-8141SQLYDUDTEGRIVN HEPARIN0.15 IU/mLCritically low0.30-0.70The [facility] HealthComment on above:Result Comment: RESULTS CHECKED AND CALLED. ACCURATELY READ BACK BY Isabela Shannon RN at 2220 PMW 06-29-22. Rivaroxaban and Apixaban will interfere with the anti Xa assay used to monitor UFH and LMWH.Performed By: #### 38748 #### [facility] [address] [facility] [place] [place] [address], USAUNFRACTIONATED HEPARIN<0.10Critically low0.30-0.70The [facility] HealthComment on above:Result Comment: Result checked and called. Accurately read back by JENNIFER WILLINGHAM RN @1404 06/29/22 Rivaroxaban and Apixaban will interfere with the anti Xa assay used to monitor UFH and LMWH.Performed By: #### 10942 #### [facility] [address] [facility] [place] [place] [address], USAUNFRACTIONATED HEPARIN<0.10Critically low0.30-0.70The [facility] HealthComment on above:Result Comment: RESULTS CHECKED AND CALLED. ACCURATELY READ BACK BY REG KILGORE RN @ 0531 Rivaroxaban and Apixaban will interfere with the anti Xa assay used to monitor UFH and LMWH.Performed By: #### 57741 #### [facility] [address] [facility] [place] [place] [address], C[facility] GENERAL HOSPITALAPTTon [id number] Coag (Bld) [Time]32.0 sNormal 25.0-35.0The [facility] HealthComment on above:Result Comment: ALL RESULTS MUST BE INTERPRETED WITH RESPECT TO BLOOD DRAWING ARTIFACT OR DILUTION ERROR OF ANTICOAGULANT AT THE TIME OF SAMPLING. THE APTT SHOULD NOT BE USED TO MONITOR UNFRACTIONATED HEPARIN THERAPY, THIS LABORATORY NO LONGER HAS AN ESTABLISHED THERAPEUTIC RANGE BASED ON THE APTT. IT IS RECOMMENDED THAT THE UFH - HEPARIN ASSAY (ANTI-XA ACTIVITY) BE USED FOR THIS PURPOSE.Performed By: #### 35031 #### [facility] [address] [facility] [place] [address], C[facility] GENERAL HOSPITALBNPon [id number] peptide B (Bld) [Mass/Vol] 3794.0 pg/mLCritically high<=900.0The [facility] SouthComment on above: Performed By: #### CBC #### [facility] [address] [place] [address] Dr. Sruthi EVANGELISTA ADMITon 95-48-4564GJ [Catalytic activity/Vol]51 U/L Rismzz40-039Lef [facility] SouthComment on above:Performed By: #### CBC #### [facility] [address] [place] [address] [address] Sruthi Bernardo.MB [Mass/Vol]2.23 ng/mLNormal<=3.60The [facility] Comment on above:Performed By: #### CBC #### [facility] [address] [place] [address] [address] Sruthi CoatsOP705.8 pg/mLCritically high4.0-51.3TAdena Regional Medical Center Comment on above:Result Comment: CUT-OFF POINTS HAVE BEEN ESTABLISHED BASED ON THE FOURTH UNIVERSAL DEFINITIONS OF MYOCARDIAL INFARCTION. THE UPPER REFERENCE LIMIT (URL) OF TROPONIN, DEFINED THE 99TH PERCENTILE OF cTnI DISTRIBUTION IN A REFERENCE POPULATION, HAS BEEN CONFIRMED THE DECISION THRESHOLD FOR OK DIAGNOSIS.Performed By: #### CBC #### [facility] [address] [place] [address] [address] Sruthi Jo73 ng/mLNormal9-82[facility] NorthComment on above: Performed By: #### CBC #### [facility] [address] [address] [address] Sruthi Fisher W MANUAL DIFFon 53-26-8729RSWTRWWQ LYMPH #NormalSelect Medical Specialty Hospital - Cincinnati NorthComment on above:Performed By: #### CBCMAN ####[facility] [address] [place], [place] [address]Dr. Yilan ChangATYPICAL LYMPH %NormalSelect Medical Specialty Hospital - Cincinnati NorthComment on above:Performed By: #### CBCMAN ####[facility] [address] [place] [address]Dr. Yilan ChangBAND #0.1 103/ulNormal0.0-0.3TAdena Regional Medical CenterComment on above: Performed By: #### CBCMAN ####[facility] [address] [place] [address]Dr. Yilan ChangBAND %1 %Normal0-5The [facility] Comment on above:Performed By: #### CBCMAN ####[facility] [address] [place], [place] [address]Dr. Yilan ChangBASOM #0.00 103/ulNormal 0.00-0.10The [facility] SouthComment on above:Performed By: #### CBCMAN ####[facility] [address] [place], [place] [address]Dr. Yilan ChangBASOM %0.0 %Critically low0.2-2.0The [facility] SouthComment on above:Performed By: #### CBCMAN ####[facility] [address] [place] [address]Dr. Yilan ChangBLAST #NormalThe [facility] Comment on above:Performed By: #### CBCMAN ####[facility] [address] [place] [address]Dr. Yilan ChangBLAST %NormalThe [facility] SouthComment on above:Performed By: #### CBCMAN ####[facility] [address] [place], [place] [address]Dr. Yilan ChangCORRECTED WBC Normal4.0-11.0The [facility] SouthComment on above:Performed By: #### CBCMAN ####[facility] Asjcscgyqn[address] [place], [place] [address]Dr. Yilan ChangEOS #0.13 103/ulNormal0.00-0.70The [facility] SouthComment on above: Performed By: #### CBCMAN ####[facility] Fkmhwlntze[address] [place], [place] [address]Dr. Yilan ChangEOS%1.0 %Normal0.9-7.0The [facility] SouthComment on above:Performed By: #### CBCMAN ####[facility] Cejpvplkjx[address] [place], [place] [address]Dr. Yilan PzskgVLD33.8 % Wemapr88.0-48.0The [facility] SouthComment on above:Performed By: #### CBCMAN ####[facility] Sprkqceudi[address] [place], [place] [address]Dr. Yilan BkplwXFZ70.5 g/lkKgiyel17.0-16.0The [facility] SouthComment on above: Performed By: #### CBCMAN ####[facility] Lohlhyup[address] [place], [place] [address]Dr. Yilan ChangLYMPHM #1.51 103/ulNormal1.20-3.80The [facility] SouthComment on above:Performed By: #### CBCMAN ####[facility] [address] [address]Dr. Sruthi Arechiga LYMPHM%12.0 %Critically low20.5-60.0The [facility] SouthComment on above: Performed By: #### CBCJOSE ANGEL ####[facility] [address] [address]Dr. Sruthi ArechigaMCH27.2 asAllyvd43.7-34.0The [facility] HospitalComment on above:Performed By: #### CBCJOSE ANGEL ####[facility] [address] [address]Dr. Sruthi ArechigaMCHC32.2 g/dl Utlgvi63.9-35.2The [facility] SouthComment on above:Performed By: #### CBCJOSE ANGEL ####[facility] Wzzjtbtdeb[address] [place], [place] [address]Dr. Sruthi ArechigaMCV84.3 bLPpzcbs96.0-99.0The [facility] SouthComment on above: Performed By: #### CBCJOSE ANGEL ####[facility] Sinrshaxwk[address] [place], [place] [address]Dr. Yilan ChangMETAMYELOCYTE #NormalThe [facility] SouthComment on above:Performed By: #### CBCJOSE ANGEL ####[facility] Dtixkuiuyo[address] [place], [place] [address]Dr. Kamalalan ChangMETAMYELOCYTE %NormalThe [facility] SouthComment on above:Performed By: #### CBCJOSE ANGEL ####[facility] Vgkzbtxuin[address] [place], [place] [address]Dr. Sruthi ChangMONOM#1.64 103/ulCritically high0.30-0.80The [facility] SouthComment on above:Performed By: #### CBCJOSE NAGEL ####[facility] Jkllbzsmxi[address] [place], [place] [address]Dr. Sruthi ArechigaMONOM%13.0 %Critically high 1.7-12.0The [facility] SouthComment on above:Performed By: #### CBCJOSE ANGEL ####[facility] Ondauxvuvk[address] [place], [place] [address]Dr. Kamalalan FxezgPPV76.7 fLNormal9.5-13.5The [facility] SouthComment on above: Performed By: #### CBCJOSE ANGEL ####[facility] [address] [address]Dr. Yilan ChangMYELOCYTE #NormalThe [facility] Comment on above:Performed By: #### CBCJOSE ANGEL ####[facility] V[address]qmekr[address] [address]Dr. Yilan ChangMYELOCYTE %NormalThe [facility] HospitalComment on above:Performed By: #### CBCJOSE ANGEL ####[facility] [address] [address]Dr. Yilan ChangNRBCNormalThe [facility] SouthComment on above:Performed By: #### CBCJOSE ANGEL ####[facility] Qnldlfanxk[address] [place], [place] [address]Dr. Yilan ChangPLT 237 103/qgRishaw865-094Sdx [facility] SouthComment on above:Performed By: #### ISAAK ####[facility] Vbcwpllwum[address] [place], [place] [address]Dr. Yilan ChangRBC4.60 106/ulNormal4.20-5.40The [facility] SouthComment on above:Performed By: #### ISAAK ####[facility] Tduaopmyib[address] [place], [place] [address]Dr. Yilan HqjneHCR16.2 %Sjuvnt85.0-15.0The [facility] SouthComment on above:Performed By: #### CBCJOSE ANGEL ####[facility] F[address]xsi[address] [place], [place] [address]Dr. Yilan ChangSEG #9.20 103/ulCritically high1.40-6.50The [facility] SouthComment on above:Performed By: #### CBCJOSE ANGEL ####[facility] Byrpkmfqmt[address] [place], [place] [address]Dr. Yilan ChangSEG %73.0 %Nfjxil86.0-75.0The [facility] SouthComment on above:Performed By: #### CBCJOSE ANGEL ####[facility] Xjozmbkkpg[address] [place], [place] [address]Dr. Yilan WamupFCJ47.6 103/ulCritically high 4.0-11.0The [facility] SouthComment on above:Performed By: #### CBCMAN ####[facility] [address]kktd[address] [address]Dr. Sruthi ArechigaCovid-19 PCR (CVDTB)on 01-84-4258UPDG-CoV-2 (COVID-19) RNA KOLE+probe Ql (Unsp spec)Not detectedNormalNOT DETECTEDThe [facility] SouthComment on above:Result Comment: When diagnostic testing is negative, the [...] for this test is supported by the [employer] Engineer of Health and Human Service's declaration that circumstances exist to justify the emergency use of in vitro diagnostics for the detection and/or diagnosis of the virus that causes COVID-19. This EUA will remain in effect for the duration of the COVID-19 declaration justifying emergency of IVDs, unless it is terminated or revoked by the FDA (after which the test may no longer be used).Performed By: #### CVDTB ####[facility] [address] [address]DrIndu ArechigaLIPASEon 58-10-3501Rajkar [Catalytic activity/Vol]75.0 U/L Gnyuwl59.0-393.0The [facility] SouthComment on above:Performed By: #### CBC #### [facility] Laboratory [address] [address] [address] Sruthi ArechigaPOINT OF CARE GLUCOSEon 1954Iwrpvpq [Mass/Vol]351 mg/dL Critically wqvb28-317Ivi [facility] SouthComment on above:Performed By: #### CVDTBH #### [facility] [address] [place] [address] Dr. Sruthi ArechigaPROF 14(COMP METB)on 45-04-4497Bivxbwt [Mass/Vol]2.5 g/dL Critically low3.4-5.0The [facility] SouthComment on above:Performed By: #### CMP #### [facility] [address] [place] [address] Dr. Sruthi ArechigaAlbumin/Globulin [Mass ratio]0.6 {ratio}NormalThe [facility] SouthComment on above:Performed By: #### CMP #### [facility] [address] [place] [address] Dr. Sruthi GallowayP [Catalytic activity/Vol]132 U/LCritically tgly39-029Pfh [facility] SouthComment on above:Performed By: #### CMP #### [facility] [address] [place] [address] Dr. Sruthi GallowayT [Catalytic activity/Vol]32 U/BSludqw71-68Tsg [facility] SouthComment on above:Performed By: #### CMP #### [facility] [address] [place] [address] Dr. Sruthi Corral gap [Moles/Vol]19.2 mmol/LNormalThe [facility] Comment on above:Performed By: #### CMP #### [facility] [address] [place] [address] Dr. Sruthi ArechigaAST [Catalytic activity/Vol]24 U/VPewwom91-06Vop [facility] SouthComment on above:Performed By: #### CMP #### [facility] [address] [place] [address] Dr. Sruthi ArechigaBilirubin [Mass/Vol]0.5 mg/dLNormal0.2-1.0The [facility] Comment on above:Performed By: #### CMP #### [facility] [address] [place] [address] Dr. Sruthi ArechigaCalcium [Mass/Vol]9.5 mg/dLNormal8.5-10.1The [facility] Comment on above:Performed By: #### CMP #### [facility] [address] [place] [address] Dr. Sruthi ArechigaChloride [Moles/Vol]95 mmol/LCritically pyx81-287Kxm [facility] SouthComment on above:Performed By: #### CMP #### [facility] [address] [address] [address] Sruthi ArechigaCO2 [Moles/Vol]20.3 mmol/LCritically low21.0-32.0The [facility] SouthComment on above:Performed By: #### CMP #### [facility] [address] [address] [address] Sruthi ArechigaCreatinine [Mass/Vol]0.78 mg/dLNormal0.55-1.02The [facility] SouthComment on above:Performed By: #### CMP #### [facility] [address] [place] [address] Dr. Negro ChangEGFR-AF MALIAN>60Normal>=60The [facility] SouthComment on above:Performed By: #### CMP #### [facility] [address] [address] [address] Sruthi JoyGFR-NON AF MALIAN>60Normal>=60The [facility] SouthComment on above:Performed By: #### CMP #### [facility] [address] [address] [address] Sruthi ArechigaGlobulin (S) [Mass/Vol]4.3 g/dLNormalThe [facility] SouthComment on above:Performed By: #### CMP #### [facility] [address] [address] [address] Sruthi ArechigaGlucose [Mass/Vol]389 mg/dLCritically knke20-881Xgv [facility] SouthComment on above:Performed By: #### CMP #### [facility] [address] [address] [address] Sruthi ArechigaPotassium [Moles/Vol]3.5 mmol/LNormal3.5-5.1The [facility] Comment on above:Performed By: #### CMP #### [facility] [address] [address] [address] Sruthi ArechigaProtein [Mass/Vol]6.8 g/dLNormal6.4-8.2The [facility] Comment on above:Performed By: #### CMP #### [facility] [address] [address] [address] Sruthi ArechigaSodium [Moles/Vol]131 mmol/LCritically agx109-156Yke [facility] SouthComment on above:Performed By: #### CMP #### [facility] [address] [place] [address] Dr. Sruthi Granger nitrogen [Mass/Vol]24.0 mg/dLCritically high7.0-18.0The [facility] SouthComment on above:Performed By: #### CMP #### [facility] [address] [place] [address] Dr. Sruthi Granger nitrogen/Creatinine [Mass ratio]30.8 mg/mgNormalThe [facility] SouthComment on above:Performed By: #### CMP #### [facility] [address] [place] [address] Dr. Sruthi ArechigaPROTHROMBIN TIMEon 55-37-2628OXH Coag (PPP) [Relative time]1.01 {INR}Normal0.91-1.16The [facility] HealthComment on above: Result Comment: ACCCP RECOMMENDED INR FOR WARFARIN THERAPY ------- CONDITION INR PROPHYLAXIS OF VENOUS THROMBOSIS 2-3 (HIGH-RISK SURGERY) TREATMENT OF VENOUS THROMBOSIS 2-3 TREATMENT OF PULMONARY EMBOLISM 2-3 PREVENTION OF SYSTEMIC EMBOLISM: 2-3 ACUTE MYOCARDIAL INFARCTION TISSUE HEART VALVES VALVULAR HEART DISEASE ATRIAL FIBRILLATION RECURRENT SYSTEMIC EMBOLISM MECHANICAL HEART VALVE 2.5-3.5 FROM: ORAL ANTICOAGULANTS. MECHANISM OF ACTION, CLINICAL EFFECTIVENESS, AND OPTIMAL THERAPEUTIC RANGE. CHEST 1995;108:231S-246S.Performed By: #### [id number] #### [facility] [address] [place] [address], [place]APT Coag (PPP) [Time]13.3 mFsmsdk64.3-14.8The Park[facility] HealthComment on above:Result Comment: ALL RESULTS MUST BE INTERPRETED WITH RESPECT TO BLOOD DRAWING ARTIFACT OR DILUTION ERROR OF ANTICOAGULANT AT THE TIME OF SAMPLING.Performed By: #### [id number] #### [facility] [address] [place] [address], USAPROTIMEon 11-80-6172NIS Coag (PPP) [Relative time]0.98 {INR}NormalSelect [facility] Hospital - [facility] NorthComment on above:Performed By: #### CVDTBH #### [facility] [address] [place] [address] Dr. Sruthi Miller [facility] HospitalComment on above:Result Comment: DESIRED INR: 2.0 - 3.0 CONDITIONS NOT LISTED BELOW 2.5 - 3.5 FOR PROSTHETIC HEART VALVE REPLACEMENT 2.5 - 3.5 RECURRENT THROMBOSIS Performed By: #### CVDTBH #### [facility] [address] [place] [address] Dr. Sruthi Scott Coag (PPP) [Time]10.6 sNormal9.0-11.6The [facility] Comment on above:Performed By: #### CVDTBH #### [facility] [address] [place] [address] Dr. Sruthi Overton 37-85-3424cFSP Coag (Bld) [Time]32.5 tZglkjy03.3-36.2[facility] NorthComment on above:Performed By: #### CVDTBH #### [facility] [address] [place] [address] Dr. Sruthi Tucker, HIGH SENSITIVITYon 56-19-3800DHEHDH3449.1 pg/mL Critically high4.0-51.3The [facility] SouthComment on above:Result Comment: CUT-OFF POINTS HAVE BEEN ESTABLISHED BASED ON THE FOURTH UNIVERSAL DEFINITIONS OF MYOCARDIAL INFARCTION. THE UPPER REFERENCE LIMIT (URL) OF TROPONIN, DEFINED THE 99TH PERCENTILE OF cTnI DISTRIBUTION IN A REFERENCE POPULATION, HAS BEEN CONFIRMED THE DECISION THRESHOLD FOR OK DIAGNOSIS.Performed By: #### HSTROPN #### [facility] [address] [place], [place] [address] Dr. Sruthi AbreuTROP1816.7 pg/mLCritically high4.0-51.3The [facility] Comment on above:Result Comment: CUT-OFF POINTS HAVE BEEN ESTABLISHED BASED ON THE FOURTH UNIVERSAL DEFINITIONS OF MYOCARDIAL INFARCTION. THE UPPER REFERENCE LIMIT (URL) OF TROPONIN, DEFINED THE 99TH PERCENTILE OF cTnI DISTRIBUTION IN A REFERENCE POPULATION, HAS BEEN CONFIRMED THE DECISION THRESHOLD FOR OK DIAGNOSIS.Performed By: #### CBC #### [facility] [address], [place] [address] Dr. Sruthi Moses 92-43-4762VWH7.865 uIU/mLCritically high0.358-3.740The [facility] SouthComment on above:Performed By: #### TSH, LIPA, BNP, CMADM ####[facility] [address] [place], [place] [address]Dr. Sruthi Mercer HEPARIN ASSAYon 24-31-1370ZCXNZOSEXUINHF HEPARIN<0.10Critically low0.30-0.70The [facility] HealthComment on above:Order Comment: No: Do not add to previous draw No collection time noted on specimen or requisition. The collection time recorded is the time of receipt in the lab.Result Comment: Result checked and called. Accurately read back by NEELAM LABOY RN ON 2022 AT 22:19 Rivaroxaban and Apixaban will interfere with the anti Xa assay used to monitor UFH and LMWH.Performed By: #### [id number] #### [facility] [address] [place] [address], USAXR CHEST 1 Von [id number] CHEST 1 VEXAMINATION: XR CHEST 1 V HISTORY: SHORTNESS OF BREATH COMPARISON: [...] versus passive atelectasis. Electronically authenticated by: GERMAIN CYO Date: 2022 06:58[facility] Vital Signs Date TimeVital SignValuePerforming OyjggccakPsdicslb25-49-8166 10:40-0500Body .5 cmSthomas Cedeño CREDIT ADMINISTRATION SPECIALIST Work Phone: [facility] CenterIkrvjslrbh51-68-7258 10:40-0500Body mass index (BMI) [Ratio]31.78 kg/g2EujiznJohnna Cedeño CREDIT ADMINISTRATION SPECIALIST Work Phone: [facility] HospitalOshssqgnly29-56-7343 10:40-0500Body ljffui02.83 kgJohnna Cedeño CREDIT ADMINISTRATION SPECIALIST Work Phone: [facility] CenterXcipvywoyk96-68-0936 10:40-0500Diastolic blood cywyieec21 mm[Hg]Johnna Cedeño CREDIT ADMINISTRATION SPECIALIST Work Phone: [facility] CenterIqgcqrdgod89-99-3788 10:40-0500Heart rate67 /min Johnna Cedeño CREDIT ADMINISTRATION SPECIALIST Work Phone: [facility] CenterYuvbypevlk28-09-4417 10:40-0500Respiratory rate16 /minSthomas Cedeño CREDIT ADMINISTRATION SPECIALIST Work Phone: [place] [address]Mrwgzvjadd78-73-9221 10:40-1157IsB8% (BldA) [Mass fraction]94 %Johnna Cedeño CREDIT ADMINISTRATION SPECIALIST Work Phone: [place] [address]Xhqhgmejqt12-09-2064 10:40-0500Systolic blood dmymqtdo282 mm[Hg]Johnna Cedeño CREDIT ADMINISTRATION SPECIALIST Work Phone: [facility] CenterRxlcgmcwte41-62-1698 15:10-0500Body pnadrz807.5 cmAlexis Gilmore DPM Work Phone: [facility] CenterLfqkvochvo81-17-8832 15:10-0500Body mass index (BMI) [Ratio]32.01 kg/m0EjndcsdnAlexis Gilmore DPM Work Phone: [facility] CenterWqulcdurou22-61-3127 15:10-0500Body .38 kgAlexis Gilmore DPM Work Phone: [facility] CenterGcxsexgpqn29-37-5217 15:10-0500Respiratory rate18 /minAlexis Gilmore DPM Work Phone: [facility] CenterEzijbwajnl03-45-3186 11:13-0400Body imhuiq992.5 cmSthomas Cedeño CREDIT ADMINISTRATION SPECIALIST Work Phone: [facility] CenterGiawxtitxw92-29-9886 11:13-0400Body mass index (BMI) [Ratio]32.01 kg/i4EpxlnsJohnna Cedeño CREDIT ADMINISTRATION SPECIALIST Work Phone: [facility] CenterZozthpovvn72-96-6525 11:13-0400Body temperature 97.81 [degF]Johnna Cedeño CREDIT ADMINISTRATION SPECIALIST Work Phone: [facility] CenterVbteorfcsq27-86-8827 11:13-0400Body syoarj78.38 kgJohnna Cedeño CREDIT ADMINISTRATION SPECIALIST Work Phone: [facility] CenterQshfxsfywy82-74-2846 11:13-0400Diastolic blood mm[Hg]Johnna Cedeño CREDIT ADMINISTRATION SPECIALIST Work Phone: [facility] CenterFovjvzcsqo97-02-4041 11:13-0400Heart rate61 /min Johnna Cedeño CREDIT ADMINISTRATION SPECIALIST Work Phone: [facility] CenterIijdhrohmd77-66-4705 11:13-0400Respiratory rate16 /minSthomas Cedeño CREDIT ADMINISTRATION SPECIALIST Work Phone: [facility] CenterFouftvumdp74-03-7848 11:13-4201MtI0% (BldA) [Mass fraction]96 %Johnna Cedeño CREDIT ADMINISTRATION SPECIALIST Work Phone: [facility] CenterVefhtvmuue13-67-8860 11:13-0400Systolic blood xhdmgmzi736 mm[Hg]Johnna Cedeño CREDIT ADMINISTRATION SPECIALIST Work Phone: [facility] CenterXszlogtkea37-00-9025 08:15-0400Diastolic blood gzyihtib14 mm[Hg]Agustin [facility]10-03-2025 08:15-0400Systolic blood dhsuapui618 mm[Hg]Agustin [facility]09-18-2025 14:31-0400 Diastolic blood mm[Hg][facility]18-2025 14:31-0400Heart rate87 /minStanikaer [facility]09-18-2025 14:31-0400Systolic blood lxqgymfp002 mm[Hg]Agustin [facility] 07-27-2025 14:01-0400Body pipmsz098.5 cmAlexis Dillon DPM Work Phone: [facility] HospitalIwscndmhgd11-57-0783 14:01-0400Body mass index (BMI) [Ratio]33.47 kg/i8QkvfbcqkAlexis Gilmore DPM Work Phone: [facility] HospitalTlvwsbdigd40-21-3638 14:01-0400Body eicshy89.01 kgNicjessica Gilmore DPM Work Phone: [facility] HospitalXclgqrvkam81-13-2903 14:01-0400Respiratory rate16 /minAlexis Dillon DPM Work Phone: [facility] HospitalXsuivpoala55-92-2034 14:00-0400Diastolic blood nymxfmlt87 mm[Hg]Champ Bell II Work Phone: [facility]09-12-2025 14:00-0400 Heart rate64 /Tierael Bell II Work Phone: 1(184)880-[address], [place] 9754109-12-2025 14:00-0400 Respiratory rate16 /minDdarvinel Bell II Work Phone: 1(106)872-[address] [place], [place] 9235909-12-2025 14:00-0400 SaO2% (BldA) [Mass fraction]96 %Champ Bell II Work Phone: [facility]09-12-2025 14:00-0400 Systolic blood fzxuxbnv597 mm[Hg]Champ Bell II Work Phone: 1(148)046-[address], [place] [address]109-12-2025 10:41-0400 Body darxjd904.48 cmDakathi Bell II Work Phone: [facility]09-12-2025 10:41-0400 Body ajfcfjavtkx80.9 [degF]Champ Bell II Work Phone: 1(419)559-[address], [place] [address]109-12-2025 10:41-0400 Body .6 kgDakathi Bell II Work Phone: 1(419)851-[address], [place] [address]754109-10-2025 11:03-0400 Body .5 cmSthomas Cedeño CREDIT ADMINISTRATION SPECIALIST Work Phone: [facility] HospitalNalsuhadbg48-02-3399 11:03-0400Body mass index (BMI) [Ratio]33.47 kg/r7LwcgcuJohnna Cedeño CREDIT ADMINISTRATION SPECIALIST Work Phone: [facility] HospitalAtrepjtpvo62-27-1523 11:03-0400Body .01 kgJohnna Cedeño CREDIT ADMINISTRATION SPECIALIST Work Phone: [facility] HospitalZsspydbdll87-41-5666 11:03-0400Diastolic blood mm[Hg]Johnna Cedeño CREDIT ADMINISTRATION SPECIALIST Work Phone: [facility] CenterXheoaggouh91-15-0763 11:03-0400Heart rate67 /min Johnna Cedeño CREDIT ADMINISTRATION SPECIALIST Work Phone: [facility] HospitalFrmvzpbzsw80-49-2894 11:03-0400Respiratory rate16 /minSthomas Cedeño CREDIT ADMINISTRATION SPECIALIST Work Phone: [facility] HospitalNczzfromgx78-43-4002 11:03-8677IcX9% (BldA) [Mass fraction]94 %Johnna Cedeño CREDIT ADMINISTRATION SPECIALIST Work Phone: [facility] CenterZwuywzwjtw82-40-2841 11:03-0400Systolic blood getsorzw720 mm[Hg]Johnna Cedeño CREDIT ADMINISTRATION SPECIALIST Work Phone: [facility] CenterWzhotrgqic77-35-2607 11:15-0400Body niqqrq317.5 cmAlexis Gilmore DPM Work Phone: [phone] [facility] Treatment CenterRdapmcnfbw73-42-0406 11:15-0400Body mass index (BMI) [Ratio]31.46 kg/k7UhjnuepgAlexis Gilmore DPM Work Phone: [facility] HospitalZgbcxbivge25-52-4196 11:15-0400Body rqvwqi18.02 kgAlexis Gilmore DPM Work Phone: [facility] HospitalLiqkaagejk09-03-5621 11:15-0400Respiratory rate16 /minAlexis Gilmore DPM Work Phone: [facility] HospitalGtofjyznjz67-48-3931 14:13-0400Body .5 cmAlexis Gilmore DPM Work Phone: [facility] HospitalMgikrocmwl36-66-2963 14:13-0400Body mass index (BMI) [Ratio]31.46 kg/s9XqfumlaxAlexis Gilmore DPM Work Phone: [facility] HospitalVqrihonosf12-03-6818 14:13-0400Body qouzjz72.02 kgAlexis Gilmore DPM Work Phone: [facility] HospitalVpkohvxrxb05-92-3459 14:13-0400Respiratory rate16 /Efra Gilmore DPM Work Phone: [facility] HospitalIxqqvmurqw22-97-1072 11:25-0400Diastolic blood ylejytyf03 mm[Hg]Champ Bell II Work Phone: 1(855)498-[address], [place] 9754107-31-2025 11:25-0400 Heart rate63 /Britney Bell II Work Phone: 1(634)142-[address], [place] 9754107-31-2025 11:25-0400 Respiratory rate16 /Britney Bell II Work Phone: [facility]07-31-2025 11:25-0400 SaO2% (BldA) [Mass fraction]95 %Champ Bell II Work Phone: [facility]07-31-2025 11:25-0400 Systolic blood uiotsznz845 mm[Hg]Champ Bell II Work Phone: 1(966)894-[address], [place] 9754107-31-2025 10:55-0400 Body pgflakqqzmf89.1 [degF]Champ Bell II Work Phone: [facility]07-31-2025 08:55-0400 Body lpwokz018.48 cmDakathi Bell II Work Phone: [facility]07-31-2025 08:55-0400 Body .92 kgDakathi Bell II Work Phone: 1(307)173-[address], [place] 9754107-16-2025 11:02-0400 Body dwxoxn276.5 Job Cronin MD Work Phone: [facility] HospitalHndaegapyh94-99-5084 11:02-0400Body mass index (BMI) [Ratio]31.46 kg/c2KpunnyDale Cronin MD Work Phone: [facility] HospitalOwrvnvyqlj44-75-5816 11:02-0400Body jfacbq97.02 kgDale Cronin MD Work Phone: [facility] HospitalQbubuiiqxv51-25-7484 11:02-0400Diastolic blood owttnftn10 mm[Hg]Dale Cronin MD Work Phone: [facility] HospitalQasncxvqng08-91-9287 11:02-0400Systolic blood mm[Hg]Dale Cronin MD Work Phone: [facility] HospitalFatpumkpfq65-63-0477 13:47-0400Body .5 Bunny Cedeño CREDIT ADMINISTRATION SPECIALIST Work Phone: [facility] HospitalCjzrtmgjtn46-90-7111 13:47-0400Body mass index (BMI) [Ratio]32.19 kg/r8TabbzwJohnna Cedeño CREDIT ADMINISTRATION SPECIALIST Work Phone: [facility] HospitalIeepzhrkgc26-46-8112 13:47-0400Body pyrftf04.83 kgJohnna Cedeño CREDIT ADMINISTRATION SPECIALIST Work Phone: [facility] HospitalJqglunvsvj64-79-7243 13:47-0400Diastolic blood fnfurgue37 mm[Hg]Johnna Cedeño CREDIT ADMINISTRATION SPECIALIST Work Phone: [facility] HospitalGutxghfeod47-02-6401 13:47-0400Heart rate69 /min Johnna Cedeño CREDIT ADMINISTRATION SPECIALIST Work Phone: [facility] CenterUklxeipirs62-17-9544 13:47-0400Respiratory rate16 /minSthomas Dryden CREDIT ADMINISTRATION SPECIALIST Work Phone: [facility] CenterEaqtzgsihf24-71-9751 13:47-3971RwR6% (BldA) [Mass fraction]95 %Johnna Cedeño CREDIT ADMINISTRATION SPECIALIST Work Phone: [facility] CenterStnyfdhykc13-17-6352 13:47-0400Systolic blood tvbynvcc188 mm[Hg]Johnna Cedeño CREDIT ADMINISTRATION SPECIALIST Work Phone: [facility] CenterQilxkisyku26-88-8759 14:34-0400Body kishfj363.5 cmAlexis Gilmore DPM Work Phone: [facility] HospitalBiszjutnoh54-72-7119 14:34-0400Body mass index (BMI) [Ratio]31.64 kg/j5NzvsotjnAlexis Gilmore DPM Work Phone: [facility] HospitalRzedkazick92-95-2818 14:34-0400Body qybwsg28.47 kgAlexis Gilmore DPM Work Phone: [facility] HospitalVaczdvmhud63-13-3524 14:34-0400Respiratory rate16 /minAlexis Gilmore DPM Work Phone: [facility] HospitalSmaqgulwhy99-97-1787 11:02-0400Body fvlcud594.5 Lalitajenny Dryden CREDIT ADMINISTRATION SPECIALIST Work Phone: [facility] HospitalHokacvtuwt52-32-9270 11:02-0400Body mass index (BMI) [Ratio]31.79 kg/r4OalcsvJohnna Castanedavely CREDIT ADMINISTRATION SPECIALIST Work Phone: [facility] CenterKkxveujqxq05-39-2048 11:02-0400Body hvflfi72.83 kgJohnna Cedeño CREDIT ADMINISTRATION SPECIALIST Work Phone: [facility] CenterNnrhxtxowp59-90-8501 11:02-0400Diastolic blood mitbrtvv02 mm[Hg]Johnna Cedeño CREDIT ADMINISTRATION SPECIALIST Work Phone: [facility] CenterDbhnwgsnqx33-67-2546 11:02-0400Heart rate61 /min Johnna Cedeño CREDIT ADMINISTRATION SPECIALIST Work Phone: 1(419)483-[address] [place], [place] [address]Tazmjpertd72-38-2007 11:02-0400Respiratory rate16 /Roshni Cedeño CREDIT ADMINISTRATION SPECIALIST Work Phone: 1(000)[facility] [place], [place] [address]Rmterxdhmq56-34-8166 11:02-7259SwR6% (BldA) [Mass fraction]93 %Johnna Cedeño CREDIT ADMINISTRATION SPECIALIST Work Phone: 1(951)[facility]-7219[facility] HospitalBsyrdpwsnj25-20-6842 11:02-0400Systolic blood zblkqxvi479 mm[Hg]Johnna Cedeño CREDIT ADMINISTRATION SPECIALIST Work Phone: 1(747)[address] [place], [place] 1138504-09-2025 12:00-0400Diastolic blood ffghlvya32 mm[Hg]Champ Bell II Work Phone: 1(799)[address] [place], [place] 7663804-09-2025 12:00-0400 Heart rate67 /minDaniel Bell II Work Phone: 1(956)[address] [place], [place] 7663804-09-2025 12:00-0400 Respiratory rate16 /minDaniel Bell II Work Phone: 1(994)[address] [place], [place] 7663804-09-2025 12:00-0400 SaO2% (BldA) [Mass fraction]93 %Champ Bell II Work Phone: 1(053)[address] [place], [place] 7663804-09-2025 12:00-0400 Systolic blood wpqvwazv352 mm[Hg]Champ Bell II Work Phone: 1(794)[address] [place], [place] 7663804-09-2025 11:49-0400 Body bgctap042.48 cmDaniel Bell II Work Phone: 1(629)[address] [place], [place] 7663804-09-2025 07:53-0400 Body govqafunyqv25 [degF]Champ Bell II Work Phone: 1(802)[address] [place], [place] 7663804-09-2025 06:00-0400 Body maoomq68.7 kgDaniel Bell II Work Phone: 1(271)[address] [place], [place] 7663804-08-2025 20:16-0400 Diastolic blood ljqkpcyp97 mm[Hg]Champ Bell II Work Phone: 1(199)[address] [place], [place] 7663804-08-2025 20:16-0400 Heart rate56 /Britney Bell II Work Phone: 1(490)234-[address] [place], [place] 9235904-08-2025 20:16-0400 Respiratory rate16 /Britney Bell II Work Phone: 1(094)[address]04-08-2025 20:16-0400 SaO2% (BldA) [Mass fraction]93 %Champ Bell II Work Phone: 1(326)336-[address] [place], [place] 9235904-08-2025 20:16-0400 Systolic blood mm[Hg]Champ Bell II Work Phone: 1(596)[address]04-08-2025 13:36-0400 Body topanc570.48 cmDakathi Bell II Work Phone: 1(640)[address]04-08-2025 13:36-0400 Body nufcaudwelw48.5 [degF]Champ Bell II Work Phone: 1(528)[address]04-08-2025 13:36-0400 Body .2 kgDakathi Bell II Work Phone: 1(456)[address]02-26-2025 13:49-0500 Diastolic blood pawynjlz12 mm[Hg]Trace Ramírez MD, PhDP [facility] 01-05-2025 13:49-0500Systolic blood uvwkyarw948 mm[Hg]Trace Ramírez MD, PhD [facility] Fpuncyrgsl74-25-2840 13:19-0500Body brwjat567.5 Bunny Cedeño CREDIT ADMINISTRATION SPECIALIST Work Phone: [facility] HospitalIdfobdiiuc20-25-9907 13:19-0500Body mass index (BMI) [Ratio]32.15 kg/n1VibudfJohnna Cedeño CREDIT ADMINISTRATION SPECIALIST Work Phone: 1([phone] [facility] Treatment CenterNkmziwwlcf63-64-8124 13:19-0500Body kyvtpc19.74 kgJohnna Cedeño CREDIT ADMINISTRATION SPECIALIST Work Phone: [facility] HospitalHykgigsdyc85-98-9718 13:19-0500Diastolic blood yjkvjrhw94 mm[Hg]Johnna Cedeño CREDIT ADMINISTRATION SPECIALIST Work Phone: 1(419)483-[address] [place], [place] [address]Jeikgoiqaj30-39-9957 13:19-0500Heart rate65 /min Johnna Cedeño CREDIT ADMINISTRATION SPECIALIST Work Phone: [facility] HospitalIpzxosqluo07-46-5422 13:19-0500Respiratory rate16 /minSjenny Cedeño CREDIT ADMINISTRATION SPECIALIST Work Phone: [facility] HospitalYturmiyamh03-47-2977 13:19-3483XfL8% (BldA) [Mass fraction]95 %Johnna Cedeño CREDIT ADMINISTRATION SPECIALIST Work Phone: [facility] HospitalBoxndfmxrl29-48-6528 13:19-0500Systolic blood jveoruvp132 mm[Hg]Johnnajenny Cedeño CREDIT ADMINISTRATION SPECIALIST Work Phone: [facility] HospitalEwsytywkco00-16-1913 10:57-0500Body dcxjja007.5 cmNicholas Brown DPM Work Phone: 1(468)829-[address] [place], [place] [address]Xttsghpwye04-31-2268 10:57-0500Body mass index (BMI) [Ratio]31.46 kg/v7Wnotsrqx Brown DPM Work Phone: 1(841)970-[address] [place], [place] [address]Msfcbgzbpc31-69-3787 10:57-0500Body xfecfk12.02 kgNicholas Brown DPM Work Phone: 1(516)094-[address] [place], [place] [address]Uutipeablp86-35-1464 10:57-0500Respiratory rate18 /minNicholas Brown DPM Work Phone: [facility] HospitalXgyljjyfcb82-20-9503 09:25-0500Body ruapht290.5 cmNicholas Brown DPM Work Phone: 1(150)342-[address] [place], [place] [address]Zauytkncui00-81-5801 09:25-0500Body mass index (BMI) [Ratio]31.46 kg/m6Gnotwwzk Brown DPM Work Phone: 1(810)271-[address] [place], [place] [address]Swhvdhwgdx88-94-8252 09:25-0500Body whxgce54.02 kgNicholas Brown DPM Work Phone: 1(941)134-[address] [place], [place] [address]Kiiwbosuug61-79-0649 09:25-0500Respiratory rate18 /minNicholas Brown DPM Work Phone: 1(765)068-[address] [place], [place] [address]Oktnisluxc82-49-4425 12:01-0500Diastolic blood gmbrrund24 mm[Hg]Trace Ramírez MD, PhDCVP Sqemtnknlo88-30-1741 12:01-0500 Systolic blood mm[Hg]Trace Ramírez MD, PhDCVP Physicians 09-30-2024 09:46-0500Body bysoal449.5 cmManjula Hemmer PA Work Phone: [facility] CenterLhxpchtten72-76-0556 09:46-0500Body mass index (BMI) [Ratio]31.57 kg/j7Wbiwi Hemmer PA Work Phone: [facility] CenterWklrbcypmh31-53-2449 09:46-0500Body temperature 97.59 [degF]Manjula Hemmer PA Work Phone: [facility] HospitalEzcmxfsqzk14-30-3782 09:46-0500Body nqlasi07.29 kgMichaelen Hemmer PA Work Phone: [facility] CenterIxfdkttxws97-09-2350 09:46-0500Diastolic blood vmliqmxw39 mm[Hg]Manjula Hemmer PA Work Phone: [facility] HospitalKamcyhujxo07-93-6094 09:46-0500Heart rate78 /min Manjula Hemmer PA Work Phone: [facility] HospitalHqwyxjietc16-58-3267 09:46-0500Respiratory rate16 /minMichaelen Hemmer PA Work Phone: [facility] CenterDxcsmqpgrt08-86-5137 09:46-5540VpG0% (BldA) [Mass fraction]97 %Manjula Hemmer PA Work Phone: [facility] CenterMvxysdacmn45-18-9848 09:46-0500Systolic blood mm[Hg]Manjula Hemmer PA Work Phone: [facility] CenterYslvxbpddm43-70-7427 09:21-0500Body .5 cmAlexis Gilmore DPM Work Phone: noS[facility] CenterVktaauyxwb50-66-7991 09:21-0500Body mass index (BMI) [Ratio]31.28 kg/e7GjbcwdnmAlexis Gilmore DPM Work Phone: [facility] CenterXnvwtvrlra64-59-7453 09:21-0500Body rapcfh46.56 kgPhilomenajose Gilmore DPM Work Phone: [facility] CenterBskzlbxexv52-52-0819 09:21-0500Respiratory rate18 /minPhilomenajose Gilmore DPM Work Phone: [facility] HospitalDpybrngbxg28-69-0806 09:33-0500Body dexdvh827.5 cmSthomas Cedeño CREDIT ADMINISTRATION SPECIALIST Work Phone: [facility] HospitalOypyhpipkq58-93-5475 09:33-0500Body mass index (BMI) [Ratio]31.28 kg/x6HdcfmcJohnna Cedeño CREDIT ADMINISTRATION SPECIALIST Work Phone: [facility] HospitalQjxxiskets57-49-3725 09:33-0500Body .56 kgJohnna Cedeño CREDIT ADMINISTRATION SPECIALIST Work Phone: [facility] HospitalEgtqcdncmc83-98-5370 09:33-0500Diastolic blood mqpjyzbg31 mm[Hg]Johnna Cedeño CREDIT ADMINISTRATION SPECIALIST Work Phone: [facility] HospitalAtjqelgxji06-77-9583 09:33-0500Heart rate72 /min Johnna Cedeño CREDIT ADMINISTRATION SPECIALIST Work Phone: [place] [address]Akwxesxezk32-47-1736 09:33-4691NjR3% (BldA) [Mass fraction]96 %Johnna Cedeño CREDIT ADMINISTRATION SPECIALIST Work Phone: [facility] HospitalIoaunwjlyf90-44-5165 09:33-0500Systolic blood rfexhgvt242 mm[Hg]Johnna Cedeño CREDIT ADMINISTRATION SPECIALIST Work Phone: [facility] HospitalHwbtvczdww44-82-1014 16:14-0400Diastolic blood vbfekrkj77 mm[Hg]Micheal Nova MASTER CONTROL SUPERVISOR-CORPORATE PLANNER Work Phone: [facility]09-10-2024 16:14-0400 Systolic blood ibzwwrye010 mm[Hg]Micheal Priceuria MASTER CONTROL SUPERVISOR-CORPORATE PLANNER Work Phone: [facility]09-10-2024 16:10-0400 Body dicypz474.5 cmMicheal Priceuria MASTER CONTROL SUPERVISOR-CORPORATE PLANNER Work Phone: [facility]09-10-2024 16:10-0400 Body mass index (BMI) [Ratio]29.63 kg/t1Waunwu Rohini MASTER CONTROL SUPERVISOR-CORPORATE PLANNER Work Phone: [facility]09-10-2024 16:10-0400 Body yzevqy22.48 kgMahadr Rohini MASTER CONTROL SUPERVISOR-CORPORATE PLANNER Work Phone: [facility]09-10-2024 16:10-0400 Heart rate76 /minMahadr Rohini MASTER CONTROL SUPERVISOR-CORPORATE PLANNER Work Phone: [facility]09-10-2024 16:10-0400 Respiratory rate18 /minMahadr Rohini MASTER CONTROL SUPERVISOR-CORPORATE PLANNER Work Phone: [facility]08-30-2024 11:52-0400 Body yhcayh933.5 cmAlexis Gilmore DPM Work Phone: [facility] HospitalMpbxqkykrp62-16-4665 11:52-0400Body mass index (BMI) [Ratio]29.45 kg/k3HsdrfxugAlexis Gilmore DPM Work Phone: [facility] HospitalPohiesaskx46-91-1281 11:52-0400Body hjrlap69.03 kgAlexis Gilmore DPM Work Phone: [facility] HospitalNxfcdadhdd22-35-0297 11:52-0400Diastolic blood gvgizrvn64 mm[Hg]Alexis Gilmore DPM Work Phone: [facility] HospitalVtaozusxcm29-54-1397 11:52-0400Heart rate78 /min Alexis Gilmore DPM Work Phone: [facility] HospitalVzxrwkqpnl59-48-4490 11:52-0400Systolic blood xvzyugfl831 mm[Hg]Alexis Gilmore DPM Work Phone: [facility] HospitalVsolizbjsq81-55-4980 14:17-0400Diastolic blood ipaxpjfk88 mm[Hg]Trace Ramírez MD, PhDCVP Gzdtddxjys22-67-8469 14:17-0400 Systolic blood rjgsexej792 mm[Hg]Trace Ramírez MD, PhDCVP [facility] 06-22-2024 07:49-0400Body fyepfmrceza90.9 [degF]Nely Curry MD Work Phone: 1216)[address]08-13-2024 07:49-0400 Diastolic blood mm[Hg]Nely Curry MD Work Phone: 1(216)[address] [place], [place] 9455308-13-2024 07:49-0400 Heart rate76 /Arsh Curry MD Work Phone: 1(216)[address] [place], [place] 9455308-13-2024 07:49-0400 Respiratory rate19 /Arsh Curry MD Work Phone: 1(216)[address] [place], [place] 9455308-13-2024 07:49-0400 SaO2% (BldA) [Mass fraction]91 %Nely Curry MD Work Phone: 1(216)[address] [place], [place] 9455308-13-2024 07:49-0400 Systolic blood mm[Hg]Nely Curry MD Work Phone: 1(216)292-[address] [place], [place] 4302608-12-2024 17:12-0400 Body .5 Conor Curry MD Work Phone: 1([address]991 [address]08-12-2024 17:12-0400 Body mass index (BMI) [Ratio]29.26 kg/i3OxkhtNely Curry MD Work Phone: 1216191 [address]08-12-2024 17:12-0400 Body .58 kgNely Curry MD Work Phone: 1(216)7-[address] [place], [place] 4302608-06-2024 15:12-0400 Body gpvype061.5 cmMargareth Escamilla DO Work Phone: 1(783)179-[address] [place], [place] 1544908-06-2024 15:12-0400 Body mass index (BMI) [Ratio]30.18 kg/s6LvlvbMargareth Escamilla DO Work Phone: 1(070)7-[address] [place], [place] 1544908-06-2024 15:12-0400 Body ycrxjv14.84 kgMehdi Shishehbor DO Work Phone: [facility]08-06-2024 15:12-0400 Diastolic blood mm[Hg]Margareth Shishehbor DO Work Phone: [facility]08-06-2024 15:12-0400 Heart rate91 /minMehdi Shishehbor DO Work Phone: [facility]08-06-2024 15:12-0400 Systolic blood hzljdovv671 mm[Hg]Margareth Shishehbor DO Work Phone: [facility]07-10-2024 12:35-0400 Diastolic blood mm[Hg]II Champ Bell Work Phone: 1(230)[address]07-10-2024 12:35-0400 Heart rate64 /HeathLucero Bell Work Phone: 1(912)[address]07-10-2024 12:35-0400 Respiratory rate16 /HeathLucero Bell Work Phone: 1(878)[address]07-10-2024 12:35-0400 SaO2% (BldA) [Mass fraction]96 %II Champ Bell Work Phone: 1(879)704-[address] [place], [place] 9235907-10-2024 12:35-0400 Systolic blood mm[Hg]II Champ Bell Work Phone: 1(360)695-[address] [place], [place] 9235907-10-2024 10:00-0400 Inhaled oxygen flow rate2 L/HeathLucero Bell Work Phone: 1(207)[address]07-10-2024 08:33-0400 Body gryjys181.48 cmII Champ Bell Work Phone: 1(204)465-[address] [place], [place] 9235907-10-2024 08:33-0400 Body krtogl29.84 kgII Champ Bell Work Phone: 1(766)032-[address] [place], [place] 9235907-09-2024 10:46-0400 Body mcugsq399.48 cmII Champ Bell Work Phone: [facility]07-09-2024 10:46-0400 Body mass index (BMI) [Ratio]29.6 kg/m2II Champ Bell Work Phone: [facility]07-09-2024 10:46-0400 Body xbcolddlmpp49.6 [degF]II Champ Bell Work Phone: [facility]07-09-2024 10:46-0400 Body .48 kgII Champ Bell Work Phone: 1(985)742-[address], [place] 9754107-09-2024 10:46-0400 Diastolic blood nztgsmya33 mm[Hg]II Champ Bell Work Phone: 1(940)530-[address], [place] 9754107-09-2024 10:46-0400 Heart rate63 /minII Champ Bell Work Phone: 1(937)750-[address], [place] 9754107-09-2024 10:46-0400 SaO2% (BldA) [Mass fraction]96 %II Champ Bell Work Phone: [facility]07-09-2024 10:46-0400 Systolic blood dolxhxhr651 mm[Hg]II Champ Bell Work Phone: [facility]02-01-2024 16:15-0500 Body ldyqis016.5 cmAlexis Dillon DPM Work Phone: [facility] HospitalQhzfijjxso23-99-8129 16:15-0500Body mass index (BMI) [Ratio]29.26 kg/l4XcutxqrdAlexis Gilmore DPM Work Phone: [facility] HospitalGynyokfaus23-42-9237 16:15-0500Body xoydrp45.58 kgAlexis Gilmore DPM Work Phone: [facility] HospitalVhhuuhqeqz51-64-4064 16:15-0500Diastolic blood knsdlejg48 mm[Hg]Alexis Gilmore DPM Work Phone: [facility] HospitalVzbdjwczua90-50-0311 16:15-0500Heart rate77 /min Alexis Gilmore DPM Work Phone: noS[facility] CenterPmufdaggei26-41-8630 16:15-0500Systolic blood xhuoisvo949 mm[Hg]Alexis Gilmore DPM Work Phone: noS[facility] CenterWlpspzfqqc16-04-0871 10:30-0400Body yyeaab157.48 cmSabrina Borden Other [place] [employer] Other 04-12-2023 10:30-0400Body mass index (BMI) [Ratio] 28.35 kg/w1EoqqwlSabrina Borden Other [employer] Other 04-12-2023 10:30-0400Body xlirzsvuhwb41.8 [degF]Sabrina Borden Other [employer] Other 04-12-2023 10:30-0400Body mlbkqa96.31 kgSabrina Borden Other [employer] Other 04-12-2023 10:30-0400Diastolic blood cbfitjio52 mm[Hg] Sabrina Borden Other [employer] Other 04-12-2023 10:30-2791AbU1% (BldA) [Mass fraction]95 % Sabrina Borden Other [employer] Other 04-12-2023 10:30-0400Systolic blood elgaukti821 mm[Hg] Sabrina Borden Other [employer] Other 03-06-2023 16:30-0500Diastolic blood hbvwsbew13 mm[Hg] II Champ Bell Work Phone: 1(419)483-[address] [place], [place] 9235903-06-2023 16:30-0500 Heart rate63 /Ky Bell Work Phone: 1(095)812-[address] [place], [place] 9235903-06-2023 16:30-0500 Respiratory rate16 /Ky Bell Work Phone: 1(769)108-[address] [place], [place] 9235903-06-2023 16:30-0500 SaO2% (BldA) [Mass fraction]95 %II Champ Bell Work Phone: 1(490)371-[address] [place], [place] 9235903-06-2023 16:30-0500 Systolic blood mm[Hg]II Champ Bell Work Phone: 1(339)087-[address] [place], [place] 9235903-06-2023 14:00-0500 Inhaled oxygen flow rate2 L/Ky Bell Work Phone: 1(913)022-[address] [place], [place] 9235903-06-2023 11:42-0500 Body aamorp149.48 cmII Champ Bell Work Phone: 1(483)935-[address] [place], [place] 9235903-06-2023 11:42-0500 Body .49 kgII Champ Bell Work Phone: 1(451)786-[address] [place], [place] 9235903-02-2023 08:30-0500 Body .48 cmMabrianne Mathew Other [employer] Other 03-02-2023 08:30-0500Body mass index (BMI) [Ratio] 28.35 kg/x7AprpluvGeo Mathew Other [employer] Other 03-02-2023 08:30-0500Body spzzrncsxyh61.8 [degF] Geo Mathew Other [employer] Other 03-02-2023 08:30-0500Body riajnj67.31 kgMattarash Mathew Other [employer] Other 03-02-2023 08:30-0500Diastolic blood mm[Hg] Geo Mathew Other [facility] [employer] Other 03-02-2023 08:30-1949OdS8% (BldA) [Mass fraction]95 % Geo Mathew Other [place] [employer] Other 03-02-2023 08:30-0500Systolic blood mvndmega575 mm[Hg] Geo Mathew Other [place] [employer] Other 11-11-2021 13:00-0500Body cljkux642.48 cmMattarash Mathew Other [place] [employer] Other 11-11-2021 13:00-0500Body mass index (BMI) [Ratio] 31.09 kg/x0DqqmjzsGeo Mathew Other [place] [employer] Other 11-11-2021 13:00-0500Body .11 kgMattarash Mathew Other [place] [employer] Other 11-11-2021 13:00-0500Diastolic blood sbqtjegf11 mm[Hg] Geo Mathew Other [place] [employer] Other 11-11-2021 13:00-0500Systolic blood tukjxwfg518 mm[Hg] Geo Mathew Other [facility]Match[facility] Other Encounters Encounter DateEncounter TypeCare ProviderFacilityStart: 09-20-2025 End: 62-95-2434Kgimfc flowsShayne Cedeño CREDIT ADMINISTRATION SPECIALIST Work Phone: [facility] Clark MedinceStart: 09-20-2025 End: 19-08-7809Fzwpov Stacy Cedeño CREDIT ADMINISTRATION SPECIALIST Work Phone: [facility] Clark MedinceStart: 09-20-2025 End: 61-04-3498Bcgwjb outpatient visit 25 minutesJohnna Cedeño CREDIT ADMINISTRATION SPECIALIST Work Phone: [facility] Mo[facility] Clark MedinceComment on above:Acute non- recurrent pansinusitis (Primary Dx)Start: 09-20-2025 End: 47-81-3684frzopggoqqNCWYAY M SHIVELYNot AvailableStart: 09-15-2025 End: 57-89-0966Dbxaru outpatient visit 15 minutesAlexis Gilmore DPM Work Phone: noms CI PODIATRYComment on above:Achilles tendinitis, right leg (Primary Dx); Contracture of right ankle; Type 2 diabetes mellitus with hyperglycemia, with long-term current use of insulin (HCC); Pain due to onychomycosis of toenails of both feetStart: 09-15-2025 End: 04-41-4084fihsjbdblyCYWBQXHW A BROWNNot AvailableStart: 09-15-2025 End: 60-29-2255Jztrgi Edgar Gilmore DPM Work Phone: [facility] CI PODIATRYStart: 09-15-2025 End: 14-38-1649Xcrzqq Edgar Gilmore DPM Work Phone: noms CI PODIATRYStart: 28-77-1498tcbsegbvclZrgomqLone Peak Hospitaltart: 08-24-2025 End: 01-07-1128Voxumv Stacy Cedeño CREDIT ADMINISTRATION SPECIALIST Work Phone: [facility] Clark MedinceStart: 08-24-2025 End: 84-88-7256Evewsw Stacy Cedeño CREDIT ADMINISTRATION SPECIALIST Work Phone: [facility] Clark MedinceStart: 08-24-2025 End: 22-34-4020Cxknlw outpatient visit 25 minutesJohnna Cedeño CREDIT ADMINISTRATION SPECIALIST Work Phone: [facility]erv[facility] AsylumeComment on above:Abnormal breast exam (Primary Dx); Encounter for screening mammogram for malignant neoplasm of breast; Type 2 diabetes mellitus with diabetic chronic kidney disease (HCC); Chronic kidney disease, stage 3b ([facility]); Acute non-recurrent pansinusitisStart: 08-24-2025 End: 33-66-2242nesdpdncneOCLYMB M SHIVELYNot AvailableStart: 08-12-2025 End: 38-31-6659Zqhvbg outpatient visit 25 minutesAgustin Phamweiki Work Phone: RV[employer] [place]edoStart: 09-70-4706ufmlhbxdsbAydunb Al Shweiki [facility] InstituteStart: 32-54-4392splczwzwerRezxfu Al ShweikiCataula Eye InstituteStart: 07-28-2025 End: 28-38-2944Mgfmxq outpatient visit 25 minutesSaneeru Brock Shweiki Work Phone: [employer] [place]edoStart: 11-78-3229fzcvykbdwjEkloeo Al ShweRiverside Methodist Hospital InstituteStart: 07-27-2025 End: 81-64-9270Tbmqtv follow up visit related to original Alexandru Gilmore DPM Work Phone: noms Ivy Espinoza PodiatryComment on above: Contracture of right ankle (Primary Dx); Achilles tendinitis, right leg; Type 2 diabetes mellitus with hyperglycemia, with long-term current use of insulin ([facility]Start: 07-27-2025 End: 34-42-7561bhhifutdlfZMIXUAAG A BROWNNot AvailableStart: 07-27-2025 End: 74-89-9747Lcbmwo Edgar Gilmore DPM Work Phone: noms [facility] Espinoza PodiatryStart: 07-27-2025 End: 53-22-4634Phvfvn Edgar Gilmore DPM Work Phone: noms [facility] Espinoza PodiatryStart: 07-22-2025 End: 43-98-2179Zosqtsos Result EncounterAlexis Gilmore DPM Work Phone: noms External Department UnsolicitedStart: 07-22-2025 End: 52-46-0408Fqouphqw Result EncounterAlexis Gilmore DPM Work Phone: noms External Department UnsolicitedStart: 07-22-2025 End: 10-09-3905Zatptefnz to same day surgery [place]villeAlexis Gilmore DPM-[facility]Start: 07-22-2025 End: 33-30-4906xddhnpcrmjVmfzmc Berry II Work Phone: [facility] Work Phone: Start: 07-20-2025 End: 74-11-6921Vvtzhr Stacy Cedeño CREDIT ADMINISTRATION SPECIALIST Work Phone: noms [facility] MedinceStart: 07-20-2025 End: 12-40-7531Gayxudrohan Cedeño CREDIT ADMINISTRATION SPECIALIST Work Phone: noms [facility] MedinceStart: 07-20-2025 End: 22-06-7533Rafezh outpatient visit 25 minutesJohnna Cedeño CREDIT ADMINISTRATION SPECIALIST Work Phone: noms Moi Family MedinceComment on above:Preoperative clearance (Primary Dx); Type 2 diabetes mellitus with hyperglycemia, with long-term current use of insulin (HCC); 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, with long-term current use of insulin, unspecified retinopathy severity (HCC); Asthma without status asthmaticus without complication, unspecified asthma severity, unspecified whether persistent (HCC); Major depressive disorder, single episode, in full remissionStart: 07-20-2025 End: 14-00-8103Vzwdxxugmuwa Masood Cedeño CREDIT ADMINISTRATION SPECIALIST Work Phone: [facility] Work Phone: Start: 07-20-2025 End: 51-84-5295gqaxuvudewXMDWJQ M SHIVELYNot AvailableStart: 07-19-2025 End: 46-72-4266Hbnquclr Result EncounterNicholjose Gilmore DPM Work Phone: noms External Department UnsolicitedStart: 07-19-2025 End: 12-64-9207Hzrlzlxd Result EncounterPhilomenajose Gilmore DPM Work Phone: noms External Department UnsolicitedStart: 07-19-2025 End: 05-91-5217Sknnlgy encounter procedureAlexis Gilmore WGQ-Ccj-Obugvekw Testing Work Phone: Start: 07-19-2025 End: 38-38-7930rfphotogxaXckogs Bell II Work Phone: [facility] Work Phone: Start: 20-10-5605Auljrelfb for preprocedural laboratory examinationAlexis Gant [facility] Physician GroupStart: 07-18-2025 End: 01-15-2804sdpxmucivcVBTPKPLB A BROWNNot AvailableStart: 07-18-2025 End: 54-67-1038Pldehf outpatient visit 25 minutesAlexis Berry Dillon DPM Work Phone: noms Ivy Espinoza PodiatryComment on above: Contracture of right ankle (Primary Dx); Achilles tendinitis, right leg; Diabetes mellitus due to underlying condition with diabetic polyneuropathy, unspecified whether nursing home insulin use (HCC)Start: 90-70-9898qolmrzwwyn Trace [facility] InstituteStart: 07-12-2025 End: 15-97-0067Xxzdeo Vincent Delcid DO Work Phone: [facility]oms [facility] EyeStart: 07-12-2025 End: 55-42-0825Ibmrvp Vincent Delcid DO Work Phone: [facility] EyeStart: 07-12-2025 End: 86-13-8718ojwhtcoofkEPAXUUSK D ZAHLERNot AvailableStart: 06-20-2025 End: 61-71-8863Rwawxx follow up visit related to original Marcus Fox MD Work Phone: noms Surgical AssociatesComment on above:History of colon polyps (Primary Dx); Upper abdominal pain; Iron deficiency anemia, unspecified iron deficiency anemia type; Chronic anticoagulation; Other chronic gastritis without hemorrhageStart: 06-20-2025 End: 66-02-9459tcbvpxaxbhNRXXRA VARGAS VNot AvailableStart: 06-16-2025 End: 08-87-0165Rbpoyp outpatient visit 15 minutesAlexis Gilmore DPM Work Phone: noms CI PODIATRYComment on above:Achilles tendinitis, right leg (Primary Dx); Contracture of right ankle; Diabetes mellitus due to underlying condition with diabetic polyneuropathy, unspecified whether terminal carman insulin use (HCC); Pain due to onychomycosis of toenails of both feetStart: 06-16-2025 End: 70-96-8640yezusvvsubKKVKGKON A BROWNNot AvailableStart: 06-16-2025 End: 68-52-0945Krqckt Edgar Gilmore DPM Work Phone: noms CI PODIATRYStart: 06-16-2025 End: 45-75-8010Esvbumping Gilmore DPM Work Phone: noms CI PODIATRYStart: 06-09-2025 End: 14-82-0316Cttpbklz Result Fatemeh Fox MD Work Phone: noms External Department UnsolicitedStart: 06-09-2025 End: 92-51-3968Tgcbubot Result Fatemeh Cronin MD Work Phone: noms External Department UnsolicitedStart: 06-09-2025 End: 52-47-2477Eccsmviwu to same day surgery Byron Fox [facility] CampusStart: 06-09-2025 End: 28-30-9593ouhuwtnzjyTisreo Berry II Work Phone: [facility] Work Phone: Start: 05-30-2025 End: 38-18-7650zhrqqldtnbDACOXDOhioHealth Doctors Hospital Start: 05-30-2025 End: 64-74-1462Yumrmnjng for preprocedural cardiovascular examinationGEORUniversity Hospitals Portage Medical Centertart: 05-25-2025 End: 25-43-0811Ykjorb outpatient new 45 minutesDale Fox MD Work Phone: noms ST GENSComment on above:Iron deficiency anemia, unspecified iron deficiency anemia type (Primary Dx); History of colon polyps; Upper abdominal pain; Screening for colon cancer; Chronic anticoagulationStart: 05-25-2025 End: 14-71-5344kdrugicckhLDZLVA VARGAS VNot AvailableStart: 05-09-2025 End: 23-83-8506Tywkredfgg Reny Mckinley MD Work Phone: Referring PhysicianComment on above:Iron deficiency anemia, unspecified iron deficiency anemia type (Primary Dx)Start: 04-29-2025 End: 43-85-9436zplevgvtbhYOYX ALEYDADUfabioMagruder Memorial Hospitaltart: 04-26-2025 End: 23-38-7112ljislafvqqNEENGQCVVA E MALENFSouthview Medical Centertart: 04-14-2025 End: 54-49-7005Vmmzrz Stacy Cedeño CREDIT ADMINISTRATION SPECIALIST Work Phone: NOMS CI FMStart: 04-14-2025 End: 71-73-3085Pyjeej flowsShayne Cedeño CREDIT ADMINISTRATION SPECIALIST Work Phone: [facility]OM[facility] CI FMStart: 04-14-2025 End: 22-45-6484Jlsxl of hemosiderin, quantShjozef Cedeño CREDIT ADMINISTRATION SPECIALIST Work Phone: NOMS HealthcareStart: 04-14-2025 End: 70-29-6192Fxvvbur encounter procedureSthomas Cedeño CREDIT ADMINISTRATION SPECIALIST Work Phone: NOMS CI FMComment on above:Medicare annual wellness visit, subsequent (Primary Dx); 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 (CMS/HCC); Benign essential hypertension (CMS/HCC); Diverticulosis of colon; Generalized anxiety disorder ([facility] Irritable bowel syndrome with both constipation and diarrhea; Mixed hyperlipidemia ([facility]); Paroxysmal atrial fibrillation ([facility] Peripheral vascular disease ([facility]); Polyneuropathy due to type 2 diabetes mellitus ([facility]); Poorly controlled diabetes mellitus ([facility]); 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 associated with type 2 diabetes mellitus ([facility]); Type 2 diabetes mellitus with hyperglycemia, with long-term current use of insulin ([facility]); Osteopenia, unspecified location; Asthma without status asthmaticus without complication, unspecified asthma severity, unspecified whether persistent ([facility]); Arteriosclerosis of arterial coronary artery bypass graft ([facility]); Estrogen deficiency; Chronic migraine with aura without status migrainosus, not intractable ([facility]); Overweight; 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 ([facility]); 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, with long-term current use of insulin, unspecified retinopathy severity ([facility]); Bilateral carotid artery stenosis; New onset of congestive heart failure ([facility]); NSTEMI (non-ST elevated myocardial infarction) ([facility]); Screening for thyroid disorder; Routine general medical examination at health care facility; Screening for colon cancerStart: 04-14-2025 End: 11-61-0228wzpvbmvpxtOPTOOGAmelia Abbott AvailableStart: 03-30-2025 End: 72-58-2887Izojtn outpatient visit 15 minutesAlexis Gilmore DPM Work Phone: NOMS PR PODComment on above:Contracture of right ankle (Primary Dx); Achilles tendinitis, right leg; Diabetes mellitus due to underlying condition with diabetic polyneuropathy, unspecified whether nursing home insulin use ([facility]); Pain due to onychomycosis of toenails of both feetStart: 03-30-2025 End: 44-78-2054zgpupufoctCQOCYMAY A BROWNNot AvailableStart: 03-30-2025 End: 59-66-9129Otgbrf flowsheetAlexis Gilmore DPM Work Phone: NOMS SC PODStart: 03-30-2025 End: 77-30-6994Sgnkfp flowsheetAlexis Gilmore DPM Work Phone: noms PR PODStart: 03-10-2025 End: 84-88-3288Ypoirpq encounter procedureChamp Bell II Work Phone: [facility] Work Phone: Start: 03-10-2025 End: 10-87-4202ptqrwdujzoViltao Bell II Work Phone: [facility] Work Phone: Start: 03-03-2025 End: 36-66-9607Jfkfdcljw Result EncounterChamp Bell MD Work Phone: noms External Department UnsolicitedStart: 03-03-2025 End: 74-97-1025Dhbjxklfa Result EncounterChamp Bell MD Work Phone: noms External Department UnsolicitedStart: 03-02-[address] 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 (CMS/HCC)Start: 03-01-2025 End: 76-97-7596ekltlqpegxCBXTIP M SHIVELYNot AvailableStart: 02-21-2025 Evaluation and management of inpatientMUHAMMAD [facility] Hospitaltart: 47-52-9503Kispolziba and management of inpatientWINSLOW INDIAN HEALTHCARE CENTERI [facility] Hospitaltart: 02-18-2025 End: 13-40-4899Pretxhjwf Result EncounterGeneric External Data ProviderNOMS External Department UnsolicitedStart: 02-18-2025 End: 97-36-1458Nfkdnzsxi Result EncounterGeneric External Data ProviderNOMS External Department UnsolicitedStart: 56-69-3576Pvlpvmtjfm and management of inpatientANDREW JETKettering Health Springfieldtart: 02-18-2025 End: 50-49-8384Xtoakngwxh and management of inpatientJEFFERY KATKOSelect Medical Specialty Hospital - Trumbulltart: 02-15-2025 End: 90-66-7553orxsrrenqkDegbajeze E DoamekporFacility:[facility] Hospitaltart: 02-15-2025 End: 15-79-8729Kfnzcrvbha and management of inpatientChamp Bell II Work Phone: [facility] [place] [facility] Work Phone: Start: 02-15-2025 End: 59-24-9545rtiqseiibwp encounterDakathi Bell II Work Phone: [facility] Work Phone: Start: 02-15-2025 End: 41-08-1825Jrqqzx flowsJd Delcid DO Work Phone: noms NB OPHTStart: 02-15-2025 End: 37-24-0647Idvqfb flowsheetTeena Delcid DO Work Phone: noms NB OPHTStart: 02-15-2025 End: 65-92-0544alssfxcljaGBKDSBMT D ZAHLERNot AvailableStart: 02-03-2025 End: 05-92-3182HpasrxOzbdjg B Berry MD Work Phone: noms POPULATION HEALTHComment on above:Type 2 diabetes mellitus with hyperglycemia, with long-term current use of insulin ([facility]) Start: 01-05-2025 End: 23-11-2588Iaizfdhxz identifierTrace Ramírez Work Phone: [facility] [place]edoStart: 01-05-2025 End: 35-80-7375Fanzbvn R Petersen Work Phone: [facility] [place]edoStart: 26-86-5343jzzlmryzkwRjeorat Charleen MelchorenCincinnatlucero Eye InstituteStart: 12-30-2024 End: 53-30-1728Iofewx Edgar Gilmore DPM Work Phone: noMS CI PODIATRYStart: 12-30-2024 End: 31-47-5429Dkldoz Edgar Gilmore DPM Work Phone: noms CI PODIATRYStart: 12-30-2024 End: 32-77-2892Arvnrs outpatient visit 25 minutesJohnna Cedeño NP Work Phone: NOMS CI FMComment on above:Paroxysmal atrial fibrillation (CMS/HCC) (Primary Dx); Benign essential hypertension (CMS/HCC); Type 2 diabetes mellitus with hyperglycemia, with long-term current use of insulin (CMS/HCC); 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 (CMS/HCC); S/P CABG x 4; Encounter for screening mammogram for malignant neoplasm of breast; Type 2 diabetes mellitus with foot ulcer (CODE) (CMS/HCC); Non-pressure chronic ulcer of other part of left foot with fat layer exposed (CMS/HCC)Start: 12-30-2024 End: 83-07-5834eeybmgkgamYXDLFEAmelia Abbott AvailableStart: 12-30-2024 End: 63-16-6087Azcobc outpatient visit 15 minutesAlexis Gilmore DPM Work Phone: NOMS CI PODIATRYComment on above:Heel spur, right (Primary Dx); Achilles tendinitis, right leg; Contracture of right ankleStart: 12-30-2024 End: 02-67-9569gnbyfvzrytZOPOBOPI A BROWNNot AvailableStart: 12-20-2024 End: 13-57-9538mhuvyfwkhpMNOFFD [facility] Start: 12-18-2024 End: 55-85-9941Urnvbycit Result EncounterGeneric External Data ProviderNOMS External Department UnsolicitedStart: 12-18-2024 End: 46-90-1370Jnnztspga Result EncounterGeneric External Data ProviderNOMS External Department UnsolicitedStart: 12-09-2024 End: 14-44-1332Tmfohv Edgar Berry Dillon DPM Work Phone: noms CI PODIATRYStart: 12-09-2024 End: 42-17-2283Ntblmf antelmofrantzGalileojessica Berry Dillon DPM Work Phone: noms CI PODIATRYStart: 12-09-2024 End: 82-64-9502kbuxflgzqfRWZDIZPI A BROWNNot AvailableStart: 12-09-2024 End: 49-06-8558Yndqbs outpatient visit 15 minutesNicjessica Gilmore DPM Work Phone: noms CI PODIATRYComment on above:Heel spur, right (Primary Dx); Diabetes mellitus due to underlying condition with diabetic polyneuropathy, unspecified whether terminal carman insulin use ([facility]); Pain due to onychomycosis of toenails of both feet; Onychomycosis; PVD (peripheral vascular disease) ([facility]); Achilles tendinitis, right leg; Contracture of right ankleStart: 10-21-2024 End: 14-21-1324Bldpgs outpatient visit 25 minutesTrace Ramírez Work Phone: [facility] [place]edoStart: 09-21-1247ekwrbrnzoaCgffmtrJeanie Jaramillo Eye InstituteStart: 10-15-2024 End: 81-84-6529Dycrsk flowsJd Delcid DO Work Phone: NOXR NB OPHTStart: 10-15-2024 End: 21-81-7046Epsldf flowsJd Delcid DO Work Phone: NOIT NB OPHTStart: 10-15-2024 End: 96-65-4614Ishzsq follow up visit related to original Valentín Delcid DO Work Phone: noms NB OPHTComment on above:Pseudophakia (Primary Dx) Start: 10-15-2024 End: 82-26-3970lynoeeceuzSTSZKRLOTete Jacob AvailableStart: 09-30-2024 End: 13-23-3976Yczjrj Edgar Gilmore DPM Work Phone: NOMS CI PODIATRYStart: 09-30-2024 End: 40-67-3522Lhyvyx Edgar Gilmore DPM Work Phone: NOMS CI PODIATRYStart: 09-30-2024 End: 62-66-2315Qduxnk outpatient visit 15 Irma CUEVAS Work Phone: NOMS CI FMComment on above:Acute asthmatic bronchitis (CMS/HCC) (Primary Dx); Need for vaccination; Hypotension, unspecified hypotension typeStart: 09-30-2024 End: 45-02-6347Uinmrk outpatient visit 10 Chanell Gilmore DPM Work Phone: noMS CI PODIATRYComment on above:Dry gangrene (CMS/HCC) (Primary Dx); PVD (peripheral vascular disease) (CMS/HCC); Diabetes mellitus due to underlying condition with diabetic polyneuropathy, unspecified whether nursing home insulin use (CMS/HCC); Pain due to onychomycosis of toenails of both feetStart: 09-30-2024 End: 22-82-4266cuvoxfnpgySFOTALizz Woodward AvailableStart: 09-22-2024 End: 87-24-7386Itbtjm outpatient visit 25 minutesJohnna Cedeño NP Work Phone: NOMS CI FMComment on above:Acute asthmatic bronchitis (CMS/HCC) (Primary Dx); Type 2 diabetes mellitus with hyperglycemia, with long-term current use of insulin (CMS/HCC); Polyneuropathy due to type 2 diabetes mellitus (CMS/HCC); Acute coughStart: 09-22-2024 End: 19-43-3401ynpghixldkSGQQMZAmelia Abbott AvailableStart: 09-17-2024 End: 45-70-7555Qgvgae flowsheetJonathan D Lianaer DO Work Phone: noms NB OPHTStart: 09-17-2024 End: 43-38-5784Itsblw flowsheetJonathan Ml Estradahler DO Work Phone: NODL NB OPHTStart: 09-17-2024 End: 86-05-0940Vxltoy follow up visit related to original pxJonathan D Nataliehler DO Work Phone: NOMS NB OPHTComment on above:Pseudophakia (Primary Dx) Start: 09-07-2024 End: 12-05-3380Hnylzl flowsheetJonathan D Nataliehler DO Work Phone: NOOF NB OPHTStart: 09-07-2024 End: 92-22-8225Nojtox flowsheetJonathan Ml Estradahler DO Work Phone: NOWU NB OPHTStart: 09-07-2024 End: 25-23-6710Tenzcv follow up visit related to original pxJonathan D Lianaer DO Work Phone: NOSQ NB OPHTComment on above:Pseudophakia (Primary Dx) Start: 08-31-2024 End: 31-84-1136Fqtrma flowsheetJonathan D Lianaer DO Work Phone: NOML NB OPHTStart: 08-31-2024 End: 31-13-9789Nmqkmh flowsheetJonathan D Nataliehler DO Work Phone: NONG NB OPHTStart: 08-31-2024 End: 30-95-3525Ywayjn follow up visit related to original pxJonathan D Lianaer DO Work Phone: NOMS NB OPHTComment on above:Pseudophakia (Primary Dx); Cataract mature, total senileStart: 08-24-2024 End: 49-16-5491Cflkmj flowsheetJonathan D Nataliehler DO Work Phone: NOMS NB OPHTStart: 08-24-2024 End: 48-20-1667Dfsuiu flowsheetTeena Gaineser DO Work Phone: noms OPHTStart: 08-24-2024 End: 63-40-5603Rnajes follow up visit related to original Valentín Delcid DO Work Phone: noms OPHTComment on above:Pseudophakia (Primary Dx) Start: 08-18-2024 End: 88-84-1564yqlobssuntOKMNBPVMcKitrick Hospitaltart: 08-04-2024 End: 21-38-6690Rmasbiknc identifierTrace Ramírez Work Phone: [facility] HospitaledoStart: 08-04-2024 End: 46-97-7323HxsvekzTrace Ramírez Work Phone: RVT [facility] HospitaledoStart: 07-20-2024 End: 90-71-6696vzbxndmdyoKAOGTJamaica Hospital Medical Center AmbulatoryStart: 07-20-2024 End: 34-78-2374Jxwuav outpatient visit 25 minutesMamargot SORIA Work Phone: [facility] MatherComment on above:S/P peripheral artery angioplasty (Primary Dx); PAD (peripheral artery disease) ([facility])Start: 07-20-2024 End: 07-27-0722Opbbydyore hospital visit by physician[address] MatherComment on above:PAD (peripheral artery disease) ([facility]); S/P peripheral artery angioplastyStart: 07-20-2024 End: 43-92-7113pkjklkquuySNLIDChillicothe Hospitaltart: 07-13-2024 End: 23-46-6622Txmbkx flowsheetTeena Gaineser DO Work Phone: noms OPHTStart: 07-13-2024 End: 74-50-8341Fxmskg flowsheetTeena Delcid DO Work Phone: noms ELSIE OPHTStart: 07-13-2024 End: 99-70-9685Fiuozk outpatient visit 25 minutesTeena Delcid DO Work Phone: noms ELSIE OPHTComment on above:Cataract mature, total senile (Primary Dx)Start: 07-09-2024 End: 19-96-6563Imqnfz flowsheetNicholas Berry Brown DPM Work Phone: noMS PR PODStart: 07-09-2024 End: 61-27-2326Rwrjmc flowsheetNicholas A Brown DPM Work Phone: noms PR PODStart: 07-09-2024 End: 51-78-1607Dfymvg outpatient visit 15 minutesNicjessica Smart Brown DPM Work Phone: noms PR PODComment on above:Dry gangrene (CMS/HCC) (Primary Dx); PVD (peripheral vascular disease) (CMS/HCC); Diabetes mellitus due to underlying condition with diabetic polyneuropathy, unspecified whether nursing home insulin use (CMS/HCC); Onychomycosis; Toe pain, bilateralStart: 06-30-2024 End: 02-35-8350Mfyikjdpx identifierTrace Ramírez Work Phone: [facility] [place]edoStart: 06-30-2024 End: 33-48-5852JndjeqpTrace Ramírez Work Phone: [facility] [place]edoStart: 06-21-2024 End: 59-29-7614Conehnkcr Result EncounterGeneric External Data ProviderNOMS External Department UnsolicitedStart: 06-21-2024 End: 84-89-6645Kcifozjij Result EncounterGeneric External Data ProviderNOMS External Department UnsolicitedStart: 06-21-2024 End: 09-86-6878Gcbvfhftrs hospital visit by Cuba Curry MD Work Phone: uh [facility] 7Comment on above:S/P peripheral artery angioplasty (Primary Dx); PAD (peripheral artery disease) ([facility]); Atherosclerosis of [place] arteries of extremities with intermittent claudication, left leg (CMS-HCC); Atherosclerosis of [place]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 with ulceration of other part of foot (Multi); Acute painStart: 06-15-2024 End: 09-56-4574wmxyjfpgjzOUFD [facility] Columbustart: 06-15-2024 End: 47-89-0945Snuciu outpatient new 60 minutesBrookdale [facility] DO Work Phone: [facility] MatherComment on above:PAD (peripheral artery disease) ([facility]) (Primary Dx); Anemia, unspecified typeStart: 06-15-2024 End: 50-30-3220Bxvobofax Result EncounterGeneric External Data ProviderNOMS External Department UnsolicitedStart: 06-15-2024 End: 42-53-7495Nktpeaxgh Result EncounterGeneric External Data ProviderNOMS External Department UnsolicitedStart: 06-15-2024 End: 32-07-8477bkcxchbevvPJGNYJamaica Hospital Medical Center AmbulatoryStart: 06-15-2024 End: 58-64-6936tasgeldhphICXCYY [facility]tart: 05-27-2024 End: 70-55-7921frskmwikhiTH Champ Bell Work Phone: [facility] Work Phone: Start: 05-27-2024 End: 91-79-7687Tentgnk encounter procedureII Champ Bell Work Phone: [facility]Ul[facility]ound [facility] [place] Work Phone: Start: 77-45-3982Bjd-patient / Non-visitII Champ Bell Work Phone: [facility] Vascular Surgery Work Phone: Start: 05-19-2024 End: 81-64-1596Zqfabuoph to same day surgery centerII Champ Bell Work Phone: [facility]-Interventional Radiology Work Phone: Start: 05-19-2024 End: 09-62-9234wyqbsegbtrLJ Champ Bell Work Phone: [facility] Work Phone: Start: 05-18-2024 End: 66-20-6161Hiarmhp encounter procedureII Champ Bell Work Phone: [facility] Vascular Surgery Work Phone: Start: 05-17-2024 End: 20-40-1406mnohqyvuswRG Champ Bell Work Phone: [facility] Work Phone: Start: 05-17-2024 End: 64-95-0675Xhnbbzn encounter procedureII Champ Bell Work Phone: [facility] [place] Work Phone: Start: 05-06-2024 End: 41-77-1925Udgsrx outpatient visit 25 minutesMicnolan Ramírez Work Phone: [facility] [place]edoStart: 12-11-2023 End: 92-71-6237Dtbbpb outpatient visit 15 minutesAlexis Gilmore DPM Work Phone: NOAE CI PODIATRYComment on above:Diabetes mellitus due to underlying condition with diabetic polyneuropathy, unspecified whether terminal carman insulin use ([facility]) (Primary Dx); PVD (peripheral vascular disease) ([facility]); Dry gangrene ([facility]); Foot ulcer, left, with fat layer exposed ([facility])Start: 12-03-2023 End: 10-72-0336Ixzahbrtn Result EncounterGeneric External Data ProviderNOMS External Department UnsolicitedStart: 12-03-2023 End: 15-23-3740Hhjscvxdt Result EncounterGeneric External Data ProviderNOMS External Department UnsolicitedStart: 02-19-2023 End: 43-82-7323Animvfm encounter procedureSabrina Bermudez Vascular Surgery Start: 02-19-2023 End: 56-20-9430qzudruewpsEP Chmap Bell Work Phone: [employer] Other Start: 01-31-2023 End: 14-93-0491njflvpqjdfKR CHAMP BELLFacility:H4Irqua: 01-13-2023 End: 97-29-9302Htpeiujzn to same [facility] centerII Champ Bell Work Phone: [facility] Work Phone: Start: 01-13-2023 End: 98-41-4470lrarnlkchsHE Champ Bell Work Phone: [facility] Work Phone: Start: 01-09-2023 End: 49-59-2153sctjzkpvvzRwkgxrz [place] Other [facility] [employer] Other Start: 34-48-0113Lczdfl outpatient new 60 minutes Geo Manuel Vascular SurgeryStart: 12-30-2022 End: 13-65-7628wmiijubapsWJGLTZPK BROWNFacility:S2Dvany: 54-35-4014kyhmowgowtHW DOCTOR MISCFacility:H1Ipylk: 10-18-2022 End: 53-36-2055Urrmyx follow up visit related to original Steph Ramírez MD, PhDCVP PhysiciansStart: 10-18-2022 End: 96-04-0723Feytdgvsk identifierAhmed M Alkaliby Work Phone: [facility] [place]Start: 10-18-2022 End: 75-06-6116Tafco M Alkaliby Work Phone: [facility] [place]edoStart: 10-17-2022 End: 05-98-3250Pvfuqyyki identifierAhmed M Alkaliby Work Phone: SurgiCareStart: 10-17-2022 End: 58-86-2131Cbtsg M Alkaliby Work Phone: SurgiCareStart: 10-14-2022 End: 77-81-4209Jgmjka outpatient visit 25 minutesAhmed Yola Alkaliby Work Phone: [facility] [place]edoStart: 09-27-2022 End: 69-17-2398Zaqqfh outpatient visit 25 minutesAhmed Yola Alkaliby Work Phone: [facility] [place]edoStart: 08-17-2022 End: 00-17-3400eallburwtwQM VALENTE MOUKARBELFacility:I6Fbkur: 07-21-2022 End: 82-76-2666itersxuvhxUW CHAMP BELLFacility:A3Kjsbd: 07-04-2022 End: 84-91-0112ncbhsewyyvZH CHAMP FERMINFacility:F5Jgftu: 06-29-2022 End: 41-95-0926Hrsanjcjoj and management of inpatientZOHAIB AHMEDFacility:[facility] Start: 2022 End: 53-07-9758fkfoyvwgcnOM CHAMP FERMINFacility:O1Gjimc: 44-41-5040zwbqtqheygTO CHAMP FERMINFacility:K3Joypz: 09-20-2021 End: 51-94-5698dzjmehbjpqGiukmrx [place] Other [place] [employer] Other Start: 58-70-9842Bjaeiz outpatient visit 15 minutes Geo Manuel Vascular SurgeryStart: 01-09-2021 End: 59-35-7696Hjyvgv outpatient visit 25 minutesPhiandreas Hicks Jr Work Phone: RVBerry Randle WildwoodStart: 10-10-2020 End: 20-66-1307Kgqctiwps identifierPhiandreas Hicks Jr Work Phone: RV[facility] Randle WildwoodStart: 10-10-2020 End: 17-36-6681Epveke T Nelsen Jr Work Phone: RV[facility] Randle WildwoodStart: 08-29-2020 End: 15-94-7639Yobmbn outpatient visit 25 minutesPhiandreas Hicks Jr Work Phone: [facility] Randle WildwoodStart: 10-26-2019 End: 67-96-6689Ipcupqvca Yunier Hicks Jr Work Phone: rvBerry FloreswoodStart: 10-26-2019 End: 71-52-1992DnatujDevon Hicks Jr Work Phone: rvBerry ZhaoStart: 09-22-2019 End: 97-16-3648Smmunjvks identifierDevon Hicks Jr Work Phone: rvBerry [place]remontStart: 09-22-2019 End: 32-20-7841EkwtizDevon Hicks Jr Work Phone: rvBerry [place]remontStart: 05-05-2019 End: 33-54-4589Gvygbv consultation new/estab patient 60 minDevon Hicks Jr Work Phone: rvA [facility] Procedures DateProcedureProcedure DetailPerforming ClinicianStart: 20-76-7706Digae 1mg Pre- filled SyringeMichael PetersenStart: 55-31-0428Ospkythmiqho njx pharmacologic agt spxMichael PetersenStart: 08-12-2025 End: 22-58-5477Nifjizazkqqa ophthalmic imaging retinaSameer Al Breanna MDStart: 08-12-2025 End: 06-36-9915Jieov 1mg Pre-filled SyringeSameer Al Breanna MDStart: 08-12-2025 Eylea 1mg Pre-filled SyringeMichael PetersenStart: 08-12-2025 End: 78-51-4208Tzllurcwhpzd njx pharmacologic agt spxSameer Al Breanna MDStart: 08-12-2025 End: 85-52-7831Rnzbkzgyul ultrasound dx b-scan w/wo a-scanSameer Vinod Carlos MD Start: 07-28-2025 End: 06-68-4952Akrulhobujei ophthalmic imaging retinaSameer Al Breanna MDStart: 07-28-2025 End: 14-32-8796Wlaqd 1mg Pre-filled SyringeSameer Vinod Breanna MDStart: 07-28-2025 Eylea 1mg Pre-filled SyringeMichael PetersenStart: 07-28-2025 End: 40-93-2352Pthoewyighsu njx pharmacologic agt spxSameer Vinod Carlos MDStart: 07-28-2025 End: 82-34-6953Cgnrtldzpn ultrasound dx b-scan w/wo a-scanSenrrique Soliman MD Start: 14-54-3747CDBUXFW POCT GLUCOMETERSNicjessica Gilmore DPM Work Phone: Start: 68-38-8787Rybojewryh of footDaniel Bell II Work Phone: Start: 41-82-0154AXYNDWX POCT GLUCOMETERSNicholas A Brown DPM Work Phone: Start: 83-76-9366GHXJSQS POCT GLUCOMETERSNicholas Berry Brown DPM Work Phone: Start: 51-19-4414Tblxwesvdm glycosylated r3mAbnnqqJohnna Cedeño CREDIT ADMINISTRATION SPECIALIST Work Phone: Start: 90-14-5076Mrbvg metabolic panel calcium total Alexis Berry Gilmore DPM Work Phone: Start: 28-74-2192Imudxiyu blood count with white cell differential, automatedAlexis Gilmore DPM Work Phone: Start: 07-12-2025 End: 90-84-3975Htzxv medical xm&eval comprhnsv estab pt 1/>VH (vitreous hemorrhage), right (CMS-HCC)Teena Delcid DO Work Phone: comment on above:VH (vitreous hemorrhage), right (CMS- HCC) (Primary Dx); Dry eyesStart: 62-16-4616BgkprqtvectYbcdda Bell II Work Phone: Start: 33-05-1523XHQZISKOQ REQUEST FOR LAB Gerald Fox MD Work Phone: Start: 18-45-6107YbhubjizaldklbvqowyszlcybwZifjwc Berry II Work Phone: Start: 88-26-5927KXBUTDW POCT GLUCOMETERSDale Fox MD Work Phone: Start: 06-15-6861Qtbqmulbac glycosylated f1oYqarut M Cesar CREDIT ADMINISTRATION SPECIALIST Work Phone: Start: 42-32-9257Lnftcdxylbggobd of right breastDafabioel Fermin II Work Phone: Start: 21-30-9448Dczsxfnsctu of right breastDakathi Bell II Work Phone: Start: 82-27-9501TM TOMOSYNTHESIS SCREENING Josse Bell MD Work Phone: Start: 54-51-8689SnzruzznwmkIzzldy Berry MD Work Phone: Start: 68-24-4854SJKJH CULTURE 2Generic External Data ProviderStart: 52-88-4458UPTKU CULTURE 1Generic External Data ProviderStart: 92-35-4257JD scan of abdominal aortaDakathi Bell II Work Phone: Start: 88-03-5433Jxcnkcem tomography of abdomen and pelvis with contrastChamp Bell II Work Phone: Start: 75-58-6094Drpyq chest X-rayChamp Bell II Work Phone: Start: 03-65-8544Yxceqafwszb Panel (PCR)Champ Bell II Work Phone: Start: 29-87-7526Kgbxi nucleic acid assayDakathi Bell II Work Phone: Start: 02-15-2025 End: 06-97-4849Jcoejysugjhb ophthalmic imaging optic nerveTeena Delcid DO Work Phone: Start: 02-15-2025 End: 22-40-4383Dzvyi medical xm&eval comprhnsv estab pt 1/>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 (CMS/HCC)Teena Delcid DO Work Phone: comment on above: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 associated with type 2 diabetes mellitus (CMS/HCC) (Primary Dx); 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 (CMS/HCC); Epiretinal membrane (ERM) of both eyes; Dry eyesStart: 01-05-2025 End: 47-25-0102Gltqrlagihqt ophthalmic imaging retinaTrace Ramírez MD, PhD Start: 01-05-2025 End: 42-51-3067Yesrm 1mg Pre-filled SyringeTrace Ramírez MD, PhDStart: 71-24-9282Jywug 1mg Pre-filled SyringeZackl Lindatart: 01-05-2025 End: 41-94-8155Qnsopvotffzq Injection Of Phamacologic AgentTrace Ramírez MD, PhDStart: 63-64-6223Upavxfomwxut Injection Of Phamacologic AgentZackl Darrell Start: 01-05-2025 End: 55-45-9606Ukegdbjashtt njx pharmacologic agt spxTrace Ramírez MD, PhD Start: 03-77-1027Ihpafcdjtn glycosylated w0qBbbgesJohnna Cedeño NP Work Phone: Start: 86-19-3991BFQ LIPID PROFILE (FASTING)Generic External Data ProviderStart: 72-10-1269BNX CMP (CMP) (FOR REMOTE [facility] USE)Generic External Data ProviderStart: 10-21-2024 End: 48-66-6367Idmsy 1mg Pre-filled Neo Ramírez MD, PhDStart: 72-45-7680Cklkw 1mg Pre-filled SyringeZackl Lindatart: 10-21-2024 End: 17-08-1069Jjenrhihddk angrph w/lukee i&r angela/Mary Ramírez MD, PhDStart: 10-21-2024 End: 59-31-3149Zxsonpwossdm Injection Of Phamacologic AgentTrace Ramírez MD, PhDStart: 82-02-8577Byqsapzjlqhd Injection Of Phamacologic AgentMicnolan Ramírez Start: 10-21-2024 End: 12-04-2857Bvpyyfgpqoef njx pharmacologic agt spxTrace Ramírez MD, PhD Start: 68-14-9481Ruhptjhwpd glycosylated h5nPxledc M Cesar CREDIT ADMINISTRATION SPECIALIST Work Phone: Start: 08-04-2024 End: 10-27-1578Wfqqkjmomdaw ophthalmic imaging retinaTrace Ramírez MD, PhD Start: 08-04-2024 End: 03-51-6988Zsnss 1mg Pre-filled SyringeTrace Ramírez MD, PhDStart: 08-04-2024 End: 41-42-1942Cjlfkyjiqijn Injection Of Phamacologic AgentTrace Ramírez MD, PhDStart: 30-58-4430Gsy-invas physiologic std extremity art 2 levelElena I Tabirta MASTER CONTROL SUPERVISOR-CORPORATE PLANNER Work Phone: Start: 39-83-2231Ufc bmtry prtl coher intrfrmtry io lens pwr Sasha Delcid DO Work Phone: Start: 06-30-2024 End: 98-24-1046Vfuhavfhbwj injectionTrace Ramírez MD, PhDStart: 06-30-2024 End: 96-00-4689Utkpfguzcuoy ophthalmic imaging retinaTrace Ramírez MD, PhD Start: 06-30-2024 End: 20-31-0716Pikjymbedvfe Injection Of Phamacologic AgentTrace Ramírez MD, PhDStart: 06-30-2024 End: 80-57-0785Httsefuhkcbu njx pharmacologic agt kenroyxTrace Ramírez MD, PhD Start: 07-64-1109VYTFHVLC VASCULAR PROCEDUREMeedi Meka Francine DO Work Phone: Start: 06-21-2024 End: 98-69-1005Tkzjnuxgyts time activatedNely Curry MD Work Phone: Start: 06-21-2024 End: 15-46-2802Vyfihvudpfi time activatedNely Curry MD Work Phone: Start: 57-61-4164KZEHDFKT VASCULAR PROCEDUREGeneric External Data ProviderStart: 17-79-5395Qgs-invasive physiologic study extremity 3 levlsGeneric External Data ProviderStart: 29-61-3518Ebyusvidq aortogramII Champ Bell Work Phone: Start: 63-13-7950RfzbgqzoiegDP Champ Bell Work Phone: Start: 67-89-2977Gdjnx volume recorder pneumoplethysmographyII Champ Bell Work Phone: Start: 80-50-4245Cuxmftw of coronary artery bypass graftingS/P CABG x 4Sherri Dryden CREDIT ADMINISTRATION SPECIALIST Work Phone: Start: 05-06-2024 End: 62-57-0524Eouon 1mg Pre-filled SyringeTrace Ramírez MD, PhDStart: 05-06-2024 End: 07-11-6713Nsiylf photography w/interpretation & reportTrace Ramírez MD, PhDStart: 05-06-2024 End: 48-83-5339Pkjlqjjcqpca Injection Of Phamacologic AgentTrace Ramírez MD, PhDStart: 05-06-2024 End: 18-32-2991VRE No Charge Uni Or Mary Ramírez MD, PhDStart: 12-03-2023 SEGMENTAL BLOOD PRESSUREGeneric External Data ProviderStart: 06-04-2023H/O: hysterectomyHistory of hysterectomyNicholjose Gilmore DPM Work Phone: Start: 29-48-6726Utkso limb angiographyII Champ Bell Work Phone: Start: 10-17-2022 End: 02-28-6497Drg complex retina detach vitrect &membrane peelTrace Ramírez MD, PhDStart: 10-14-2022 End: 70-69-7448Mwhic Sample DrugTrace Ramírez MD, PhDStart: 10-14-2022 End: 86-59-2973Svtwlxqizevp njx pharmacologic agt spxTrace Ramírez MD, PhD Start: 10-14-2022 End: 21-62-1502Gnvqucljax ultrasound dx b-scan w/wo a-scanTrace Ramírez MD, PhDStart: 09-27-2022 End: 61-99-9185Johpsklcvpex ophthalmic imaging retinaTrcae Ramírez MD, PhD Start: 09-27-2022 End: 62-20-5601Xdrjl 1mg Pre-filled SyringeTrace Ramírez MD, PhDStart: 09-27-2022 End: 72-49-7870Jquxqo Photos No Charge BilateralTrace Ramírez MD, PhDStart: 09-27-2022 End: 70-12-8951Gyvpwuudkose njx pharmacologic agt spxTrace Ramírez MD, PhD Start: 07-35-6040PiklzahqfvqKqzic Hammad MD Work Phone: Start: 01-09-2021 End: 10-94-5019Rumgrimihvth ophthalmic imaging retinaTrace Ramírez MD, PhD Start: 10-10-2020 End: 37-06-0045Lhzvjs photography w/interpretation & reportMicnolan Ramírez MD, PhDStart: 08-29-2020 End: 63-35-7634Awjddlejczxx ophthalmic imaging retinaTrace Ramírez MD, PhD Start: 08-29-2020 End: 29-15-6847Ngmjf Sample DrugTrace Ramírez MD, PhDStart: 08-29-2020 End: 41-81-8134Qpyvudvhkdih njx pharmacologic agt spxTrace Ramírez MD, PhD Start: 92-15-1600IzwzoamibhwRxjnmsux Brown DPM Work Phone: Start: 10-26-2019 End: 16-30-4270Cbebjlvzuqs angrph w/multiframe i&r uni/Mary Ramírez MD, PhDStart: 10-26-2019 End: 09-23-3453Nkrwisups extensive retinopathy photocoagulationTrace Ramírez MD, PhDStart: 09-22-2019 End: 14-08-6390Oufkkegttkat ophthalmic imaging retinaTrace Ramírez MD, PhD Start: 05-05-2019 End: 84-21-2544Zkpmzc photography w/interpretation & reportTrace Ramírez MD, PhDHistory of coronary artery bypass graftingS/P CABG x 4Sthomas Cedeño CREDIT ADMINISTRATION SPECIALIST Work Phone: Plan of Treatment DateCare ActivityDetailAuthorStart: 70-03-8861HAcM/Tdap/Td Vaccines (2 - Td or Tdap)DTaP/Tdap/Td Vaccines (2 - Td or Tdap)[facility] Start: 30-19-0442Dhujypehv for malignant neoplasm of colonMercy Health Anderson HospitalStart: 36-47-9151Jzbzr screening for proteinDiabetes: Urine Protein ScreeningNOMS HealthcareStart: 87-35-5415Kecrzpzj screeningDiabetes: Retinopathy ScreeningNOMT HealthcareStart: 21-70-5379Zslyhjmup for malignant neoplasm of breastMammogramNOMT HealthcareStart: 69-33-6742Jmkntjtv screeningDiabetes: Retinopathy ScreeningNOMT HealthcareStart: 01-09-2026 End: 31-65-3509Ppecnww encounter liufzramh22/02/2026 1:15 PM EST Office Visit [facility] [address] [place] [address] Teena Delcid DO [address] [place] [address] [facility]Start: 01-05-2026 Glaucoma screeningDiabetes: Retinopathy ScreeningNOMT HealthcareStart: 94-02-8569Aqrzsuw, Dixie 4 Mnth IO EYL OS/ OCTCVP Physicians Work Phone: Start: 12-01-2025 End: 25-17-5493Vjhuegf encounter bedlhmojw60/22/2026 3:40 PM EST Office Visit [facility] [address] [facility] [address] [place] [address] Alexis Gilmore DPM [address] [facility] 5 [place] [address] [facility] CI PODIATRYStart: 11-17-2025 End: 44-07-7636Gubvtpl encounter afbpvntid12/08/2026 2:00 PM EST Office Visit [facility] [address] [place] [address] Alexis Gilmore DPM [address] [facility] 5 [place] [address] [facility] CI PODIATRYStart: 07-18-0303Sdrhqfgzqt A1c measurementDiabetes: Hemoglobin Y2KXUTB HealthcareStart: 10-18-2025 End: 81-57-8430Isyfkgh encounter spybkyqqk77/09/2025 11:00 AM EST Office Visit [facility] [address] [facility] [address] [place] [address] Johnna Cedeño NP [address] [place] [address] [facility] [facility] MedinceStart: 09-20-2025 End: 54-81-5020Dyrewut encounter slqdbwewi93/11/2025 10:30 AM EST Office Visit [facility] [place] [facility] [address] [facility] [address] [place] [address] Johnna Cedeño NP [address] [place] [address] ArrivedNOMS [place] Clark MedinceComment on above:ArrivedStart: 09-15-2025 End: 48-27-7403Gvjuwvy encounter procedureNOMS CI PODIATRYComment on above: Contracture of right ankle (Primary Dx); Achilles tendinitis, right leg; Type 2 diabetes mellitus with hyperglycemia, with long-term current use of insulin (HCC); Pain due to onychomycosis of toenails of both feetStart: 94-86-1292Gxnlrco, Dixie 6 Weeks IO EYL OD(2-3) NO OCTCVP Physicians Work Phone: Start: 08-25-2025 End: 91-87-5391Hvbbtup encounter nupbdtzzt28/16/2025 2:30 PM EDT Office Visit [facility] [address] [place] [address] Alexis Gilmore DPM [address] [facility] 5 [place] [address] NOMJulita ARCHIBALD PODIATRYStart: 08-24-2025 End: 40-60-6034MF Breast - bilateral ScreeningBilateral screening mammogram Imaging Routine Abnormal breast exam Encounter for screening mammogram for malignant neoplasm of breast Expected: 08/24/2025, Expires: 10/24/2026N[facility]T Healthcare Work Phone: Comment on above:Expected: 08/24/2025, Expires: 10/24/2026Start: 08-24-2025 End: 66-31-0177Fvwzwsc encounter tdtphcxim90/15/2025 11:30 AM EDT Office Visit [facility] [address] [place] [address] Johnna Cedeño NP [address] [place] [address] ArrivedNOMS [place] Clark MedinceComment on above:ArrivedStart: 90-55-8706Hsziowviwu about tobacco useTobacco cessation counselingCVP PhysiciansStart: 08-50-2699Nzdaqpr, Dixie Fu Appt Vision Changes Os - See Call NoCVP Physicians Work Phone: Start: 24-19-8632Ixfvcwtvmz about tobacco useTobacco cessation counselingCVP PhysiciansStart: 07-27-2025 End: 65-44-0264Vradljj encounter procedureNO Ivy Espinoza PodiatryComment on above:Contracture of right ankle (Primary Dx); Achilles tendinitis, right legStart: 80-11-3136WfskdjpsfMercy Health Anderson Hospital Start: 07-20-2025 End: 37-88-4295Ccpllnha US Ankle Brachial Index (BRIDGER) Without ExerciseVascular US Ankle Brachial Index (BRIDGER) Without Exercise Vascular Ultrasound Routine PAD (peripheralartery disease) ([facility]) Expected: 07/20/2025 (Approximate), Expires: 07/20/2026[facility] Service Area Work Phone: Comment on above:Expected: 07/20/2025 (Approximate), Expires: 07/20/2026Start: 07-20-2025 End: 52-45-9239Grzfsso encounter procedureNOMS [place] Clark MedinceComment on above:ArrivedStart: 07-19-2025 End: 86-76-8546Avoswxq encounter procedureSt[facility] Jagruti Start: 48-16-5184Hcyldnodpj A1c measurementDiabetes: Hemoglobin M2FINZF HealthcareStart: 07-14-2025 End: 09-17-6841Ymanila encounter procedureNOMS CI FMStart: 54-68-4895Figpquor screeningDiabetes: Retinopathy ScreeningNOMT HealthcareStart: 07-12-2025 End: 13-65-7338Upveveq encounter jiudaueib50/02/2025 1:00 PM EDT Office Visit [facility] [address] [place] [address] Teena Delcid DO [address] [place] [address] ArrivedOceans Behavioral Hospital [facility]oxi EyeComment on above:ArrivedStart: 62-81-3015WBNLI-19 Vaccine ( season)COVID-19 Vaccine ( season)[facility] HealthcareStart: 30-83-2084Qyzyzxlsx vaccinationInfluenza Vaccine (#1)[facility] HealthcareStart: 06-20-2025 End: 55-51-8669Tvnjytf encounter mlsebohft05/11/2025 11:00 AM EDT [facility] [address] [facility] [address] [place] [address] Dale Fox MD [address] [place] [address] [address] [place] [address] [facility] Surgical AssociatesStart: 06-16-2025 End: 11-46-4250Krnlnbs encounter procedureNOMS CI PODIATRYComment on above: Achilles tendinitis, right leg (Primary Dx); Contracture of right ankle; Diabetes mellitus due to underlying condition with diabetic polyneuropathy, unspecified whether nursing home insulin use (HCC); Pain due to onychomycosis of toenails of both feetStart: 06-09-2025 End: 56-73-5661Ftwkilj encounter bjsdxndyq51/31/2025 1:40 PM EDT Office Visit [facility] [address] [facility] [address] [place] [address] Alexis Gilmore DPM [address] [address] N[facility]S PODIATRYStart: 06-09-2025 End: 97-86-2439ZwgqhogvqMorrow County Hospitaltart: 06-08-2025 End: 26-57-7031Lxjoepi encounter yzdnsytkb07/30/2025 2:00 PM EDT Office Visit [facility] [address] [place] [address] Alexis Gilmore DPYola [address] [address] NOMS PR PODStart: 12-29-5634Bmdzcdut screeningDiabetes: Retinopathy ScreeningBarton County Memorial HospitalStart: 04-14-2025 End: 69-58-3064ENF panel - Blood by Automated countCBC Lab Routine Benign essential hypertension ([facility]) Type 2 diabetes mellitus with hyperglycemia, with long-term current use of insulin ([facility]) Expected: 04/14/2025 (Approximate), Expires: 04/14/2026[facility] Work Phone: Comment on above:Expected: 04/14/2025 (Approximate), Expires: 04/14/2026Start: 04-14-2025 End: 97-90-6510Ytfhnnboyloob metabolic 2000 panel - Serum or PlasmaComprehensive metabolic panel Lab Routine Benign essential hypertension ([facility]) Type 2 diabetes mellitus with hyperglycemia, with long-term current use of insulin ([facility]) Expected: 04/14/2025 (Approximate), Expires: 04/14/2026[facility] Healthcare Comment on above:Expected: 04/14/2025 (Approximate), Expires: 04/14/2026Start: 04-14-2025 End: 70-44-9943RXU Skeletal system Views for bone densityDEXA bone density Imaging Routine Estrogen deficiency Expected: 04/14/2025, Expires: 04/14/2026 NOMS HealthcareComment on above:Expected: 04/14/2025, Expires: 04/14/2026Start: 04-14-2025 End: 78-07-0854Tvgyn 1996 panel - Serum or PlasmaLipid panel Lab Routine 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 ([facility]) Mixed hyperlipidemia ([facility]) Expected: 04/14/2025 (Approximate), Expires: 04/14/2026[facility] HealthcareComment on above: Expected: 04/14/2025 (Approximate), Expires: 04/14/2026Start: 04-14-2025 End: 49-99-4712Sixqssrgxoqa/Creatinine panel in random UrineMicroalbumin / creatinine, urine ratio Lab Routine Poorly controlled diabetes mellitus ([facility]) Expected: 04/14/2025 (Approximate), Expires: 04/14/2026[facility] Comment on above:Expected: 04/14/2025 (Approximate), Expires: 04/14/2026Start: 04-14-2025 End: 25-48-5673Tvihrjsyelt [Units/volume] in Serum or PlasmaTSH Lab Routine Overweight Screening for thyroid disorder Expected: 04/14/2025 (Approximate), Expires: 04/14/2026[facility] HealthcareComment on above:Expected: 04/14/2025 (Approximate), Expires: 04/14/2026Start: 04-14-2025 End: 11-00-9775Wtntphq encounter udmcxqyxd76/05/2025 1:30 PM EDT Office Visit [facility] [address] [facility] [address] [place] [address] Johnna Cedeño CREDIT ADMINISTRATION SPECIALIST [address] [facility] [address] [place] [address] [facility] FMComment on above:ArrivedStart: 05-23-2025Medicare Annual Wellness (AWV)Medicare Annual Wellness (AWV)[facility] HealthcareStart: 03-31-2025 End: 84-43-2146Kigwqlw encounter jqcuhnfcn77/22/2025 1:00 PM EDT Office Visit [facility] [address] [facility] [address] [place] [address] Johnna Cedeño NP [address] [facility] [address] [place] [address] [facility] CI FMStart: 03-30-2025 End: 73-31-1603Vuexgxc encounter rzfipqbgt14/21/2025 2:30 PM EDT Office Visit [facility] [address] [place] [address] Alexis Gilmore DPM [address] [address] Contracture of right ankle (Primary Dx); Achilles tendinitis, right leg; Diabetes mellitus due to underlying condition with diabetic polyneuropathy, unspecified whether nursing home insulin use ([facility]); Pain due to onychomycosis of toenails of both feetNOMS PR PODComment on above:Contracture of right ankle (Primary Dx); Achilles tendinitis, right leg; Diabetes mellitus due to underlying condition with diabetic polyneuropathy, unspecified whether nursing home insulin use ([facility]); Pain due to onychomycosis of toenails of both feetStart: 03-30-2025 End: 32-97-7979Bkngapl encounter nmjotvexp20/21/2025 9:30 AM EDT Office Visit [facility] [address] [facility] [address] [place] [address] Johnna Cedeño NP [address] [facility] [address] [place] [address] [facility] CI FMStart: 60-60-5441Hinvbokqor A1c measurement Diabetes: Hemoglobin T6AVNYB HealthcareStart: 03-10-2025 End: 25-44-1138Llkiidu encounter qgjycccwi38/01/2025 2:40 PM EDT Office Visit [facility] [address] [facility] [address] [place] [address] Alexis Gilmore DPM [address] [address] [facility] PODIATRYStart: 03-01-2025 End: 70-14-5890UN Breast - bilateral ScreeningBilateral screening mammogram Imaging Routine Encounter for screening mammogram for breast cancer Expected: 03/01/2025, Expires: 05/01/2026[facility] Work Phone: Comment on above:Expected: 03/01/2025, Expires: 05/01/2026Start: 02-23-2025 End: 46-90-6413Argrpdm encounter ccqvsrmpy97/16/2025 10:30 AM EDT Office Visit [facility] [address] [facility] [address] [place] [address] Johnna Cedeño, CREDIT ADMINISTRATION SPECIALIST [address] [facility] [address] [place] [address] [facility] FMStart: 02-17-2025 End: 90-49-9968Futbtzb encounter wjnnegqib65/10/2025 9:40 AM EDT Office Visit [facility] [address] [address] [place] [address] Alexis Gilmore DPM [address] [address] [facility] PODIATRYStart: 66-73-3386Lesfsry, Dixie / 5-6wk [facility] Work Phone: Start: 84-03-5861ZseqyhcwtMercy Health Anderson Hospital Start: 67-04-0339WlsikjhhmMorrow County Hospitaltart: 39-17-9556Pvarebto admissionMorrow County Hospitaltart: 55-84-3383WmkyjzyskMorrow County Hospitaltart: 02-15-2025 End: 13-66-2050Jdminog encounter procedureNOMS ZIMMERMAN OPHTComment on above:Arrived Start: 76-95-7131Qsohw screening for proteinDiabetes: Urine Protein Screening NOMS HealthcareStart: 01-13-2025 End: 98-25-7554Yycjhmch Tjjafvz8001/13/2025 11:50 AM EST Clinical Support [facility] [address] [place] [phone] Alexis Gilmore DPM [address] [address] NOMS CI PODIATRYStart: 12-30-2024 End: 99-30-8709VM Breast - bilateral ScreeningBilateral screening mammogram Imaging Routine Encounter for screening mammogram for malignant neoplasm of breast Expected: 12/30/2024, Expires: 02/27/2026[facility] Work Phone: Comment on above:Expected: 12/30/2024, Expires: 02/27/2026Start: 12-30-2024 End: 14-71-4125Jhkmnym encounter procedureNOMS CRISTELA FMComment on above:Heel spur, right (Primary Dx); Achilles tendinitis, right leg; Contracture of right ankleStart: 96-67-2935Mspqotvple A1c measurementDiabetes: Hemoglobin X7LGXIQ HealthcareStart: 12-23-2024 End: 67-03-5023Fxpybvnm Ipjraxz8512/23/2024 9:50 AM EST Clinical Support [facility] [address] [facility] [address] [place] [phone] Alexis Gilmore DPM [address] [address] N[facility] CI PODIATRYStart: 12-09-2024 End: 36-15-7422Yroajsf encounter jojplxurf53/30/2025 9:20 AM EST Office Visit [facility] [address] [place] [phone] Alexis Gilmore DPM [address] [address] NOMS CI PODIATRYStart: 18-74-3583Qxlklnpz mellitus screeningDiabetes ScreeningMercy Health Anderson HospitalStart: 10-15-2024 End: 04-15-9144Hfwmrfs encounter procedureNOMS NB OPHTComment on above:Arrived Start: 09-30-2024 End: 63-83-9926Plkgyxr encounter procedureNOMS CI FMComment on above:Arrived Start: 09-30-2024 End: 10-00-6337Fvfaoxr encounter procedureNOMS CI PODIATRYComment on above:Dry gangrene (CMS/HCC) (Primary Dx); PVD (peripheral vascular disease) (CMS/HCC); Diabetes mellitus due to underlying condition with diabetic polyneuropathy, unspecified whether terminal carman insulin use (CMS/HCC); Pain due to onychomycosis of toenails of both feetStart: 09-21-2024 End: 67-56-7185Rdhzxbz encounter qvmpylndy92/12/2024 11:50 AM EST Office Visit [facility] POD [address] [place] [phone] Alexis Gilmore DPM [address] [address] NOMS SC PODStart: 09-17-2024 End: 48-88-3423Blojdqp encounter qdrohzhrv88/08/2024 11:50 AM EST Office Visit [facility] P[facility] [address] [place] [phone] Alexis Gilmore DPM [address] [address] NOMS SC PODStart: 09-17-2024 End: 65-02-4169Ewvqufy encounter lfyiyprsq80/08/2024 9:30 AM EST Office Visit [facility] NB OPHT [address] [facility] [address] [place] [phone] Teena Delcid, DO [address] [place] [address] ArrivedNOMS NB OPHTComment on above:ArrivedStart: 09-07-2024 End: 88-85-5904Zykqtew encounter procedureNOMS NB OPHTComment on above:Arrived Start: 09-06-2024 End: 26-24-0014Ommypgr encounter nechlfucj33/28/2024 9:05 AM EDT Procedure Visit [facility] EXT DEP Teena Delcid, DO [address] [place] [address] NOMS EXT DEPStart: 08-31-2024 End: 09-93-6024Aewqszc encounter yfuhopqfd58/22/2024 8:45 AM EDT Office Visit PRIYANKA ZIMMERMAN OPHT [address] [place] [phone] Teena Delcid, DO [address] [place] [address] NOMJulita NB OPHTStart: 08-24-2024 End: 49-08-2881Kwnnfib encounter procedureNOMS NB OPHTComment on above:Arrived Start: 08-23-2024 End: 70-77-8507Rgfqxpm encounter nsxzhizig17/14/2024 8:45 AM EDT Procedure Visit NOMS EXT DEP Teena Delcid, DO [address] [place] [address] NOMS EXT DEPStart: 08-04-2024 Diann Patel 5-6 (5)wks Io Oct Eyl OuCVP Physicians Work Phone: Start: 07-22-2024 End: 80-58-5527Mhwdqxkj US Ankle Brachial Index (BRIDGER) Without ExerciseVascular US Ankle Brachial Index (BRIDGER) Without Exercise Vascular Ultrasound Routine PAD (peripheralartery disease) ([facility]) S/P peripheral artery angioplasty Expected: 07/22/2024 (Approximate), Expires: 06/21/2026[facility] Work Phone: Comment on above:Expected: 07/22/2024 (Approximate), Expires: 06/21/2026Start: 07-20-2024 End: 87-10-1426Ziovgfm encounter procedureUH [facility] Start: 07-13-2024 End: 66-61-8199Ugovnys encounter procedureNOMS NB OPHTComment on above:Arrived Start: 30-76-1096Zxzfpdasa vaccinationInfluenza Vaccine (#1)[facility] Start: 07-09-2024 End: 37-58-6024Izqvlmm encounter slzpbznqy59/30/2024 11:50 AM EDT [facility] [address] [place] [phone] Alexis Gilmore, DPM [address] [address] PVD (peripheral vascular disease) ([facility]) (Primary Dx); Diabetes mellitus due to underlying condition with diabetic polyneuropathy, unspecified whether terminal carman insulin use ([facility]); Dry gangrene ([facility]); Onychomycosis; Toe pain, bilateralNOMS SC PODComment on above:PVD (peripheral vascular disease) ([facility]) (Primary Dx); Diabetes mellitus due to underlying condition with diabetic polyneuropathy, unspecified whether terminal carman insulin use ([facility]); Dry gangrene ([facility]); Onychomycosis; Toe pain, bilateralStart: 16-21-6861Ptqtxaomct A1c measurementDiabetes: Hemoglobin I8QMIUUBarton County Memorial HospitalStart: 13-76-6462Kdkmdakkdg (US) doppler flow mapping of vein of upper limbUS venous mapping BI [facility]: 08-16-4229JP Lower extremity veins - [facility]: 51-88-1489PJ scan venography of lower limbsUS venous mapping BI lowerMorrow County Hospitaltart: 88-01-1581VG Upper extremity vein - bilateralMorrow County Hospitaltart: 92-11-5266Frrbvmi referralGlenbeigh Hospital Ctr Work Phone: Start: 45-97-4057SoberowacMercy Health Anderson Hospital Start: 73-06-3759Xlkvd volume recorder pneumoplethysmographyUS arterial pvr rest [facility] Hospitaltart: 38-52-5311DcidnouhyMorrow County Hospitaltart: 16-57-1584SJyN/Tdap/Td Vaccines (2 - Td or Tdap)DTaP/Tdap/Td Vaccines (2 - Td or Tdap)NOMS HealthcareStart: 80-24-2343Ayhmjdkezh A1c measurementDiabetes: Hemoglobin C9GUSZK HealthcareStart: 02-05-2024 End: 58-50-0680Snxxcgi encounter soiuksgzu34/28/2024 10:10 AM EDT Office Visit [facility] [address] [facility] [address] [place] [address] Alexis Gilmore, DPYola [address] [facility] 5 [place] [address] NOMS CI PODIATRYStart: 12-15-2023 End: 82-22-4044Bqyfynz encounter cxrcoviof22/05/2024 2:30 PM EST Office Visit N[facility] CI FM [address] [facility] [address] [place] [address] Champ Bell MD [address] [place] [facility] [address] [place] [address] NOMS CI FMStart: 72-77-4115Kwbjyugoo vaccinationInfluenza Vaccine (#1)NOMS HealthcareStart: 11-81-5285Zabeuypri for malignant neoplasm of [facility] HospitalStart: 29-41-2970UymhxrnrgMorrow County Hospitaltart: 07-11-2971Nkrhmquw screeningDiabetes: Retinopathy Screening NOMS HealthcareStart: 41-68-8202Wdvfnkmerjoe Vaccine: 65+ Years (2 - PCV) Pneumococcal Vaccine: 65+ Years (2 - PCV)[facility] HealthcareStart: 10-06-2021 Pneumococcal Vaccine: 65+ Years (2 of 2 - PCV)Pneumococcal Vaccine: 65+ Years (2 of 2 - PCV)[facility] HealthcareStart: 98-58-0126Qdgjnpynxmgr Vaccine: 65+ Years (3 of 3 - PCV)Pneumococcal Vaccine: 65+ Years (3 of 3 - PCV)[facility] HospitalStart: 00-16-4669Hskevvlwt for malignant neoplasm of breastMammogramLAYTON HOSPITAL Healthcare Start: 67-09-2286Cjfsp screening for proteinDiabetes: Urine Protein Screening [facility] HospitalStart: 91-62-3360Zmsfodx cessation educationTobacco cessation counselingCVP PhysiciansStart: 63-76-4306Odfdick EducationHealth Information for You: MedlinePl~[facility] Work Phone: Start: 28-30-7212YLB patients and/or patients aged 60+ years (1 - 1-dose 60+ series)RSV patients and/or patients aged 60+ years (1 - 1-dose 60+ series)[facility]: 22-83-7918Gcoqzt Vaccines (1 of 2)Zoster Vaccines (1 of 2)[facility]: 53-12-1285Rwwltlhvs C screeningHepatitis C Screening [facility]: 46-61-0511EKIEW-19 Vaccine (#1)COVID-19 Vaccine (#1)[facility]: 70-35-6509Qlctd panelLipid PanelMemorial Health System [facility]: 1954Medicare Annual Wellness (AWV)Medicare Annual Wellness (AWV)[facility] HospitalStart: 1954Medicare Annual Wellness VisitMedicare Annual Wellness Visit (AWV)[facility]: 97-99-7031Ejprltywi for malignant neoplasm of colonMercy Health Anderson HospitalBLOOD CULTURE 1BLOOD CULTURE 1 Lab Routine 02/18/2025 6:00 AM EDTNOMS HealthcareBLOOD CULTURE 2BLOOD CULTURE 2 Lab Routine 02/18/2025 6:34 AM EDTNOMS HealthcareGlucose [Mass/volume] in Serum or PlasmaPOCT Glucose Point of Care Testing - Docked Device Routine As needed (Lab) until discontinued starting 06/21/2024[facility] Service Area Work Phone: Comment on above:As needed (Lab) until discontinued starting 06/21/2024atient EducationGlenbeigh Hospital Ctr Work Phone: Patient referralGlenbeigh Hospital Ctr Work Phone: US Eye+Orbit - bilateralIOL Biometry - OU - Both Eyes (CPT 44847) Ophthalmology Routine Pseudophakia Ordered: 10/15/2024[facility] Work Phone: comment on above:Ordered: 10/15/2024US Lower [facility] Upper extremity vein - [facility] - WestVascular US Ankle Brachial Index (BRIDGER) Without ExerciseVascular US Ankle Brachial Index (BRIDGER) Without Exercise Vascular Ultrasound Routine PAD (peripheralartery disease) ([facility]) S/P peripheral artery angioplasty 07/20/2024 4:17 PM [facility] Service Area Work Phone: Immunizations Immunization DateImmunizationNotesCare XolmfbtxTkxqwdzm19-50-6712Jepjwodvh, High-dose Seasonal, Quadrivalent, Preservative FreeManjula CUEVAS Work Phone: [facility] HospitalJddxmahlco27-96-9281ptswbzegk virus vaccine, unspecified formulationDale Cronin MD Work Phone: [facility] HospitalEmdxbcsuxv03-25-9342kyvfcgz toxoid, reduced diphtheria toxoid, and acellular pertussis vaccine, adsorbedNicholas Brown DPM Work Phone: NOSoutheast [facility] Treatment CenterIkbhzldmrl22-97-8732asxmzdyum, high dose seasonal, preservative-freeNicholas Dillon DPM Work Phone: [facility] HospitalTsrtoubfbg53-28-3215Bvuljhnti, High-dose Seasonal, Quadrivalent, Preservative FreeNicholas Dillon DPM Work Phone: noSoutheast [facility] Treatment CenterKitksqjmgk21-27-9756xwjakrbqf virus vaccine, unspecified formulationNickittyas Brown DPM Work Phone: [facility] HospitalIylznjurti05-15-0181Wgmeyxqdk, Seasonal, Quadrivalent, AdjuvantedNicholas Brown DPM Work Phone: [phone] [place], [place] [address]Vgezjhjfjf30-71-0184okcixusme, injectable, quadrivalent, preservative freeNicholas Brown DPM Work Phone: [phone] [place], [place] [address]Ffzbxfcblz19-98-8816umzlzirrcwld polysaccharide vaccine, 23 valentNicholas Brown DPM Work Phone: [phone] [place], [place] [address]Pvwavmopkm30-10-5387hcefranvv, high dose seasonal, preservative-freeNicholas Brown DPM Work Phone: [phone] [place], [place] [address]Jzlabitoui27-18-3369xtfglsnvw, high dose seasonal, preservative-freeNicholas Brown DPM Work Phone: [phone] [place], [place] [address]Ltvluzoaby21-79-8069troagivx influenza, intradermal, preservative freeNicholas Brown DPM Work Phone: [phone] [place], [place] [address]Oubkgxdvtn71-45-0852xiikavha influenza, intradermal, preservative freeNicholas Brown DPM Work Phone: [phone] [place], [place] [address]Elbretmyyh20-28-3893fscpzbgde, injectable, quadrivalent, preservative freeNicholas Brown DPM Work Phone: [phone] [place], [place] [address]Qwqnkhclhu85-49-9400igdtrqbuygtt polysaccharide vaccine, 23 valentNicholas Brown DPM Work Phone: [phone] [place], [place] [address]Wgkcwcmpdx19-01-7102tdvmzntj influenza, intradermal, preservative freeNicholas Brown DPM Work Phone: [phone] [place], [place] [address]Exmifwnpkg47-50-6996razgaythi, injectable, quadrivalent, preservative freeNicholas Brown DPM Work Phone: [phone] [place] [address] Payers DatePayer CategoryPayerPolicy [id number] [facility] [id number] 1.2.840.735685.1.13.693.2.7.3.144733.315 2015Medicare 1.2.840.7765[id number] [id number] 1960 Fukk-[id number] 2..5.770703.56800123-14-1197TpbyrgsAGV633L32248608935UvzcmknKMP14[id number] 2.0.1.228952.3.579.2.72943-13-0765Ydtjjdh5396698 2.0.1.354276.3.579.2.25864-29-7797Hdzevlg2572965 2.0.1.703067.3.579.2.83836-37-2826Ykhexqf8570923 2.840.1.444999.3.579.2.73605-75-0393Pemqszk3649138 2.16840.1.070565.3.579.2.27692-70-9720Ofpgjsi0198157 2.16840.1.997958.3.579.2.87155-06-7549Iseyvzk3655442 2.16840.1.421049.3.579.2.39991-21-5451Czwnjrq4602893 2.16.840.1.019189.3.579.2.20801-74-9845Lbzdxbt2259337 2.16.840.1.650154.3.579.2.89650-15-4430Kmenlbm03753712 2.16.840.1.908285.3.579.2.788461-81-2839Uoedewa05176112 2.16.840.1.886619.3.579.2.728668-01-6673Bxgqvto89162594 2.16840.1.026076.3.579.2.810739-95-8297Qzqwuyj42340370 2.16.840.1.471088.3.579.2.715852-63-2648Msljhdt19416495 2.16840.1.331641.3.579.2.465462-99-9147Cbngjwd01552578 2.16840.1.759626.3.579.2.628031-49-8906Oitygjl4282274 2.16.840.1.429936.3.579.2.718356-01-4565Tgqbjka7419482 2.16840.1.524073.3.579.2.811824-00-4783Ystdrjq7017320 2.16.840.1.080332.3.579.2.254275-33-5046Qhvlwso8077364 2.16.840.1.608898.3.579.2.902081-29-8957Ualowth2951986 2.16.840.1.287786.3.579.2.177224-94-4746Bjfuwof0355519 2.16840.1.251075.3.579.2.561642-15-0973Xsilwyn7508914 2.16840.1.565168.3.579.2.687074-07-8810Einmvpt32057793 2.840.1.647274.3.579.2.309848-19-2694Mmsfezc14296103 2.840.1.692839.3.579.2.613022-78-7054Yooepdg60490353 2.840.1.802957.3.579.2.827555-81-7549Kpoxkqz94322504 2.840.1.027825.3.579.2.611429-13-1060Mqmgwfc47217280 2..1.279203.3.579.2.128872-81-2200Nvbovrx02450015 2.0.1.858621.3.579.2.682737-86-7951Bkgmkkw16685390 2.840.1.875842.3.579.2.014347-57-7625Iliecpc84535690 2.840.1.020479.3.579.2.020928-00-5945Sttaqup09733069 2..1.208480.3.579.2.867299-61-3020Sfsfkhu31348279 2.0.1.739041.3.579.2.471728-94-5474Wzvzpwq77986038 2.0.1.765358.3.579.2.334974-93-7350Enplpdj6102631 2.840.1.370694.3.579.2.921948-65-6307Ekrenqi7731498 2.840.1.933241.3.579.2.902294-50-0261Zhlsxfs5572892 2.16.840.1.590359.3.579.2.509821-54-2084Nzobehb0390528 2.16.840.1.036883.3.579.2.654886-62-4263Iejeehy3292133 2.16.840.1.487498.3.579.2.475468-51-1018Ptoukwt7896365 2..840.1.955530.3.579.2.376805-43-3248Rgsxvei8158808 2..840.1.416332.3.579.2.260256-88-3215Ekvkoke2928618 2.16.840.1.895734.3.579.2.978922-87-7696Ohjwpkr3720683 2..840.1.111498.3.579.2.333550-17-9404Wojwckr1178803 2.16.840.1.553430.3.579.2.4077Alrdhcb89556263 2.16.840.1.938776.3.579.2.531 Glxvvsh16805716 2.16.840.1.928366.3.579.2.323Sehuweb77562390 2..840.1.967579.3.579.2.549Nqjggox25176293 2.840.1.439458.3.579.2.531 Zvongvn54407872 2.840.1.241757.3.579.2.531 Social History DateTypeDetailFacilityStart: 12-11-2023 End: 17-81-2402Whk Assigned At [facility] Netotiate Other Start: 01-13-2023 End: 52-56-3687Pngmnzr smoking status NHISNever smoked tobacco (finding) [facility]art: 77-39-2021Hnz Assigned At BirthFemale [facility] Hospitaltart: 12-11-2023 End: 19-68-2344Fdlfcbu intakeLifetime non-drinker (finding)[facility] HealthcareStart: 12-11-2023 End: 38-04-4460Aixjmck of Social functionNOMS HealthcareStart: 48-95-4303Avd Assigned At BirthNot on fileNOMS HealthcareStart: 06-30-2024 End: 12-24-2957Ifvkras smoking status NHISLight tobacco smokerCVP Physicians Start: 78-77-1194Gzugybq of tobacco useLight cigarette smoker (1-9 cigs/day)CVP PhysiciansStart: 77-35-9722Zuutxx-related behavior (observable entity)Caffeine Use DetailsCVP PhysiciansStart: 13-45-2121Wcuokrd use and exposureSmoking Tobacco Use DetailsCVP PhysiciansStart: 05-05-2024 End: 58-68-7287Aaufcqy smoking status NHISEx-smokerNOMS Healthcare Work Phone: History of tobacco useCurrent smokerNOMS Healthcare History of tobacco useCigarette SmokerNOMS HealthcareStart: 06-15-2024 End: 07-99-7074Ydvhtej use and exposureSmokeless tobacco non-userUnGeorgetown Behavioral Hospital Work Phone: How often to you have a drink containing alcohol?Never [facility] HospitalStart: 92-93-3406Vka many standard drinks containing alcohol do you have on a typical day?Patient does not drinkMercy Health Anderson Hospital Work Phone: In the past 12 months, was there a time when you were not able to pay the mortgage or rent on time?NoMercy Health Anderson Hospital Work Phone: Start: 06-11-2024 End: 62-79-0103Idzowwuv to SARS-CoV-2 (event)Not sureUnGeorgetown Behavioral HospitalStart: 02-15-2025 End: 50-86-9342SllSmxnem (finding)[facility] HospitalHow often do you need to have someone help you when you read instructions, pamphlets, or other written material from your doctor or pharmacy [SILS][facility] Work Phone: Tobacco smoking status NHISTobacco smoking consumption unknownMarietta Osteopathic Clinicexual OrientationLesbian, smart or homosexualCVP Physicians Work Phone: NEGATED: Highlighted rowAlcohol intakeAlcohol Use DetailsCVP Physicians Medical Equipment Procedure CodeEquipment CodeEquipment Original TextEquipment IdentifierDates [id number]: 12-30-2023 End: 73-84-2896PTJ DIRECTED TO ADMINISTER INSULIN TWICE [id number]: 02-02-2024 Goals DatePatient GoalDesired Activity/State Functional Status HibsGmtwqspslwAckzwzTuxpevnr24-52-2950Djwboik Health Questionnaire 2 item (PHQ- 2) [Reported][facility] HospitalIwrfhizndu98-47-6544Nrarjpz Health Questionnaire 2 item (PHQ- 2) [Reported][facility] HospitalFqeqxqqjkh39-17-5940Gtwvnca Health Questionnaire 2 item (PHQ- 2) [Reported][facility] HospitalYngyiiocxd00-89-1243XEW-1 quick depression assessment panel [Reported.PHQ][facility] HospitalGuwxjvjxfp58-33-3515Ofkivxq Health Questionnaire 2 item (PHQ- 2) [Reported][facility] HospitalGngvpgkxqr90-59-5862Iwusfsv Health Questionnaire 2 item (PHQ- 2) [Reported][facility] HospitalYwwmctdomc98-22-2105Uppjkdmcrl statusPatient at Baseline [facility] Work Phone: [phone]w statusPatient Not at Baseline [facility] Work Phone: [phone] Health Questionnaire 2 item (PHQ-2) [Reported][facility] Mental Status UxpmClrxoqknxvHuhustHxmsxmui70-66-5037Jiombqogc functionCognitive Status Patient at BaselineJoint [facility] Work Phone: [phone]n functionCognitive Status Patient at BaselineJoint Township District [facility] Work Phone: Clinical Notes 09-20-2021 to 09-20-2025 Note Date & HpxtOccyOmhueogn98-89-8681 History of Present illness Narrative* Johnna Cedeño, OSORIO - 09/20/2025 10:30 AM EST Images from the original note were not included. Subjective Patient ID: Diann Patel is a 70 y.o. female who presents for No chief complaint on file.. Diann presents today for a headache and the heart beat sound in her right ear. She does have a sorethroat and sinus drainage for the last week. Sinusitis This is a new problem. The current episode started 1 to 4 weeks ago. The problem has been graduallyworsening since onset. There has been no fever. Her pain is at a severity of 6/10. The pain is moderate. Associated symptoms include congestion, coughing, ear pain, headaches, a hoarse voice, neck pain, shortness of breath, sinus pressure, sneezing and a sore throat. Past treatments include nothing. The treatment provided no relief. Over the past 2 weeks, how often have you been bothered by any of the following problems? Little interest or pleasure in doing things: Several days Feeling down, depressed, or hopeless: Not at all Patient Health Questionnaire-2 Score: 1 Current Outpatient Medications on File Prior to Visit Medication Sig Dispense Refill amLODIPine (Norvasc) 10 MG tablet Apixaban Starter Pack 5 MG tablet therapy pack Take 5 mg by mouth in the morning and 5 mg in the evening. atorvastatin (Lipitor) 80 MG tablet TAKE 1 TABLET BY MOUTH EVERY DAY 100 tablet 3 carvedilol (Coreg) 12.5 MG tablet TAKE 1 TABLET BY MOUTH TWICE DAILY WITH BREAKFAST AND WITH EVENING MEAL citalopram (CeleXA) 20 MG tablet Take 1 tablet (20 mg) by mouth Daily 100 tablet 2 Continuous Glucose Telephone Diaphragm Assembler (Dexcom G7 Telephone Diaphragm Assembler) device 1 Device yearly 1 each 0 Continuous Glucose Sensor (Dexcom G7 Sensor) misc 1 UNITS EVERY 10 (TEN) DAYS 9 each 3 dabigatran etexilate (Pradaxa) 150 MG capsule Take 150 mg by mouth in the morning and 150 mg beforebedtime. Do not crush or chew. diclofenac sodium 1 % gel APPLY 4 GRAMS TO ABDOMINAL WALL FOUR TIMES DAILY NEEDED dicyclomine (Bentyl) 10 MG capsule Take 1 capsule (10 mg) by mouth in the morning and 1 capsule (10mg) at noon and 1 capsule (10 mg) in the evening and 1 capsule (10 mg) before bedtime. 200 capsule 2 ferrous sulfate 325 (65 Fe) MG tablet Take 1 tablet (325 mg) by mouth every other day 50 tablet 0 furosemide (Lasix) 40 MG tablet TAKE 1 TABLET BY MOUTH EVERY DAY (Patient taking differently: Take 40 mg by mouth in the morning and 40 mg before bedtime.) 90 tablet 0 gabapentin (Neurontin) 300 MG capsule Take 1 capsule (300 mg) by mouth in the morning and 1 capsule(300 mg) before bedtime. 180 capsule 3 hydrALAZINE (Apresoline) 100 MG tablet insulin glargine (Lantus) 100 UNIT/ML pen Inject 45 Units under the skin at bedtime 40.5 mL 3 insulin pen needle (B-D ULTRAFINE III SHORT PEN) 31G X 8 mm misc USE DIRECTED EVERY DAY WITH BASAGLAR 100 each 3 Insulin Syringe 31G X 5/16 1 ML misc USE DIRECTED TO ADMINISTER INSULIN TWICE DAILY 200 each 3 lisinopril 20 MG tablet Take 20 mg by mouth loratadine (Claritin) 10 MG tablet Take 10 mg by mouth in the morning. methocarbamol (Robaxin) 500 MG tablet Take 500 mg by mouth every 8 (eight) hours if needed NovoLIN R 100 UNIT/ML injection INJECT 22 UNITS UNDER THE SKIN IN THE MORNING, 22 UNITS AT NOON AND22 UNITS IN THE EVENING WITH MEALS 40 mL 2 pantoprazole (ProtoNix) 40 MG EC tablet Take 40 mg by mouth in the morning. Take before meals. potassium chloride CR (Klor-Con M20) 20 MEQ ER tablet TAKE 1 TABLET(20 MEQ) BY MOUTH DAILY 90 tablet 0 No current facility-administered medications on file prior to visit. I have reviewed and reconciled the history and medication list with the patient today. Allergies Allergen Reactions Penicillins Hives and Unknown childhood-swelling Social History Tobacco Use Smoking status: Former Types: Cigarettes Smokeless tobacco: Never Vaping Use Vaping status: Never Used Substance Use Topics Alcohol use: Never Drug use: Never Family History Problem Relation Name Age of Onset Diabetes Other Hypertension Other Past Medical History: Diagnosis Date A-fib (FORMERLY [facility]) 2022 with RVR Anxiety Aortic stenosis 06/2022 Carotid artery disease Cataract CHF (congestive heart failure) ([facility]) 06/2022 Colon polyp 2016 Diverticulitis DM (diabetes mellitus) ([facility]) HLD (hyperlipidemia) HTN (hypertension) OK (myocardial infarction) ([facility]) NSTEMI, initial episode of care ([facility]) 2022 Retinal hemorrhage Past Surgical History: Procedure Laterality Date ACHILLES TENDON SURGERY Right 07/22/2025 ANGIOPLASTY 01/13/2023 APPENDECTOMY CARDIAC CATHETERIZATION 2010 with stent; Disease: Myocardial Infarction CATARACT EXTRACTION CHOLECYSTECTOMY COLECTOMY 1994 COLONOSCOPY 04/2006 COLONOSCOPY 06/09/2025 AVV COLONOSCOPY W/ POLYPECTOMY 12/2015 Dr. aPz CORONARY ARTERY BYPASS GRAFT 2012 CT ANGIOGRAM ABDOMEN PELVIS 07/12/[address] CT [address]IOGRAM ABDOMEN PELVIS CT ANGIOGRAM HEART CORONARY 07/06/2022 CT ANGIOGRAM HEART CORONARY 07/12/[address] ANGIOGRAM HEART CORONARY 06/29/2022 CT ANGIOGRAM TAVR EGD 2005 and 2011 ESOPHAGOGASTRODUODENOSCOPY 06/09/2025 AVV HERNIA REPAIR OTHER SURGICAL HISTORY Left Focal laser PARS PLANA VITRECTOMY Left for VH TONSILLECTOMY TOTAL ABDOMINAL HYSTERECTOMY W/ BILATERAL SALPINGOOPHORECTOMY Visit Vitals Smoking Status Former Review of Systems HENT: Positive for congestion, ear pain, hoarse voice, sinus pressure, sneezing and sore throat. Respiratory: Positive for cough and shortness of breath. Musculoskeletal: Positive for neck pain. Neurological: Positive for headaches. Objective Physical Exam Vitals reviewed. Constitutional: Appearance: Normal appearance. HENT: Head: Normocephalic. Right Ear: There is impacted cerumen. Nose: Right Turbinates: Swollen. Left Turbinates: Swollen. Right Sinus: Frontal sinus tenderness present. Left Sinus: Frontal sinus tenderness present. Comments: Red and swollen turbinates Mouth/Throat: Mouth: Mucous membranes are moist. Pharynx: Oropharynx is clear. Posterior oropharyngeal erythema present. Cardiovascular: Rate and Rhythm: Normal rate and regular rhythm. Pulmonary: Effort: Pulmonary effort is normal. Breath sounds: Normal breath sounds. Abdominal: General: Bowel sounds are normal. Palpations: Abdomen is soft. Skin: General: Skin is warm and dry. Neurological: General: No focal deficit present. Mental Status: She is alert and oriented to person, place, and time. Psychiatric: Mood and Affect: Mood normal. Behavior: Behavior normal. Thought Content: Thought content normal. Judgment: Judgment normal. Assessment/Plan Diagnoses and all orders for this visit: Acute non-recurrent pansinusitis - levoFLOXacin (Levaquin) 500 MG tablet; Take 1 tablet (500 mg) by mouth Daily for 10 days Start the above as directed. Reviewed potential s/e with patient. Encouraged probiotic while on antibiotic. Increase water intake, get plenty of rest. Can take OTC allergy medication for symptomatic relief. Tylenol/Motrin prn. Follow up if no improvement in one week. No follow-ups on file. documented in this encounterBarton County Memorial [id number] History of Present illness Narrative* Alexis Gilmore DPM - 09/15/2025 3:20 PM EST Patient: Diann Patel : 1955 PCP: Champ Bell MD SUBJECTIVE Patient presents today with a CC of elongated, thick nails. Pt states nails have been elongated and thick for many years and cause pain with ambulation in shoegear. Pt has tried previous treatment with minimal relief. Pt presents today for nail care and treatment. Patient is DM2 with hx of PVD and [facility] vascular intervention in the past. Pt is also 7 wks s/p right percutaneous achilles tenotomy with tenex device. She has been in walking boot in the past with negative improvement. Patient denies N/F/V/C. She has been taking nsaids with negative improvement. Pt has missed prior post op appts. Allergies: Allergies Allergen Reactions Penicillins Hives and Unknown childhood-swelling Past Medical History: Past Medical History: Diagnosis Date A-fib (FORM[facility]) 2022 with RVR Anxiety Aortic stenosis 06/2022 Carotid artery disease Cataract CHF (congestive heart failure) ([facility]) 06/2022 Colon polyp 2016 Diverticulitis DM (diabetes mellitus) ([facility]) HLD (hyperlipidemia) HTN (hypertension) OK (myocardial infarction) ([facility]) NSTEMI, initial episode of care ([facility]) 2022 Retinal hemorrhage Medications: Current Outpatient Medications: amLODIPine (Norvasc) 10 MG tablet, , Disp: , Rfl: Apixaban Starter Pack 5 MG tablet therapy pack, Take 5 mg by mouth in the morning and 5 mg in the evening., Disp: , Rfl: atorvastatin (Lipitor) 80 MG tablet, TAKE 1 TABLET BY MOUTH EVERY DAY, Disp: 100 tablet, Rfl: 3 carvedilol (Coreg) 12.5 MG tablet, TAKE 1 TABLET BY MOUTH TWICE DAILY WITH BREAKFAST AND WITH EVENING MEAL, Disp: , Rfl: citalopram (CeleXA) 20 MG tablet, Take 1 tablet (20 mg) by mouth Daily, Disp: 100 tablet, Rfl: 2 Continuous Glucose Telephone Diaphragm Assembler (Dexcom G7 Telephone Diaphragm Assembler) device, 1 Device yearly, Disp: 1 each, Rfl: 0 Continuous Glucose Sensor (Dexcom G7 Sensor) misc, 1 UNITS EVERY 10 (TEN) DAYS, Disp: 9 each, Rfl: 3 dabigatran etexilate (Pradaxa) 150 MG capsule, Take 150 mg by mouth in the morning and 150 mg before bedtime. Do not crush or chew., Disp: , Rfl: diclofenac sodium 1 % gel, APPLY 4 GRAMS TO ABDOMINAL WALL FOUR TIMES DAILY NEEDED, Disp: , Rfl: dicyclomine (Bentyl) 10 MG capsule, Take 1 capsule (10 mg) by mouth in the morning and 1 capsule (10 mg) at noon and 1 capsule (10 mg) in the evening and 1 capsule (10 mg) before bedtime., Disp: 200 capsule, Rfl: 2 ferrous sulfate 325 (65 Fe) MG tablet, Take 1 tablet (325 mg) by mouth every other day, Disp: 50 tablet, Rfl: 0 furosemide (Lasix) 40 MG tablet, TAKE 1 TABLET BY MOUTH EVERY DAY (Patient taking differently: Take40 mg by mouth in the morning and 40 mg before bedtime.), Disp: 90 tablet, Rfl: 0 gabapentin (Neurontin) 300 MG capsule, Take 1 capsule (300 mg) by mouth in the morning and 1 capsule (300 mg) before bedtime., Disp: 180 capsule, Rfl: 3 hydrALAZINE (Apresoline) 100 MG tablet, , Disp: , Rfl: insulin glargine (Lantus) 100 UNIT/ML pen, Inject 45 Units under the skin at bedtime, Disp: 40.5 mL, Rfl: 3 insulin pen needle (B-D ULTRAFINE III SHORT PEN) 31G X 8 mm misc, USE DIRECTED EVERY DAY WITH BASAGLAR, Disp: 100 each, Rfl: 3 Insulin Syringe 31G X 5/16 1 ML misc, USE DIRECTED TO ADMINISTER INSULIN TWICE DAILY, Disp: 200each, Rfl: 3 lisinopril 20 MG tablet, Take 20 mg by mouth, Disp: , Rfl: loratadine (Claritin) 10 MG tablet, Take 10 mg by mouth in the morning., Disp: , Rfl: methocarbamol (Robaxin) 500 MG tablet, Take 500 mg by mouth every 8 (eight) hours if needed, Disp: , Rfl: NovoLIN R 100 UNIT/ML injection, INJECT 22 UNITS UNDER THE SKIN IN THE MORNING, 22 UNITS AT NOON AND 22 UNITS IN THE EVENING WITH MEALS, Disp: 40 mL, Rfl: 2 pantoprazole (ProtoNix) 40 MG EC tablet, Take 40 mg by mouth in the morning. Take before meals., Disp: , Rfl: potassium chloride CR (Klor-Con M20) 20 MEQ ER tablet, TAKE 1 TABLET(20 MEQ) BY MOUTH DAILY, Disp: 90 tablet, Rfl: 0 Social History: Social History Socioeconomic History Marital status: Spouse name: Not on file Number of children: Not on file Years of education: Not on file Highest education level: Not on file Occupational History Not on file Tobacco Use Smoking status: Former Types: Cigarettes Smokeless tobacco: Never Vaping Use Vaping status: Never Used Substance and Sexual Activity Alcohol use: Never Drug use: Defer Sexual activity: Defer Partners: Decline to Answer Other Topics Concern Not on file Social History Narrative Not on file Social Drivers of Health Financial Resource Strain: Low Risk (02/18/2025) Received from [facility] Overall Financial Resource Strain (CARDIA) Difficulty of Paying Living Expenses: Not hard at all Food Insecurity: No Food Insecurity (02/18/2025) Received from [facility] Hunger Vital Sign Within the past 12 months, you worried that your food would run out before you got the money to buymore.: Never true Ran Out of Food in the Last Year: Not on file Transportation Needs: No Transportation Needs (02/18/2025) Received from [facility] Transportation In the past 12 months, has lack of transportation kept you from medical appointments or from getting medications?: No Lack of Transportation (Non-Medical): Not on file Physical Activity: Inactive (06/22/2024) Received from [facility] Exercise Vital Sign On average, how many days per week do you engage in moderate to strenuous exercise (like a brisk walk)?: 0 days On average, how many minutes do you engage in exercise at this level?: 0 min Stress: Stress Concern Present (12/03/2023) Received from [facility] [place] [facility] [employer] - Occupational Stress Questionnaire Feeling of Stress : To some extent Social Connections: Moderately Isolated (12/03/2023) Received from [facility] Social Connection and Isolation Panel In a typical week, how many times do you talk on the phone with family, friends, or neighbors?: More than three times a week How often do you get together with friends or relatives?: More than three times a week How often do you attend moravian or adventist services?: Never Do you belong to any clubs or organizations such as moravian groups, unions, fraternal or athletic groups, or school groups?: No How often do you attend meetings of the clubs or organizations you belong to?: Never Are you , , , , never , or living with a partner?: Intimate Partner Violence: Not At Risk (04/26/2025) Received from [facility] Humiliation, Afraid, Rape, and Kick questionnaire Within the last year, have you been afraid of your partner or ex-partner?: No Within the last year, have you been humiliated or emotionally abused in other ways by your partner or ex-partner?: No Within the last year, have you been kicked, hit, slapped, or otherwise physically hurt by your partner or ex-partner?: No Within the last year, have you been raped or forced to have any kind of sexual activity by your partner or ex-partner?: No Housing Stability: Low Risk (02/18/2025) Received from [facility] Housing Stability Vital Sign In the last 12 months, was there a time when you were not able to pay the mortgage or rent on time?: No Number of Times Moved in the Last Year: Not on file At any time in the past 12 months, were you homeless or living in a retirement (including now)?: No ROS: General: denies fever, chills, fatigue, malaise OBJECTIVE LE EXAM: DERM: Elongated thick yellow crumbly nails digits 1 through 10. Negative hair growth with thin shiny atrophic skin bilaterally Large bony prominence of the posterior right Achilles calcaneal junction lateral aspect of the left foot has scar tissue Rubor to PIPJ regions 2 through 5 bilateral feet VASC: Negative DP and negative PT pedal pulses with warm to cool ibia to toes left and positive edema to left foot. NEURO: 5.07 [place] monofilament test diminished to digits and forefoot bilaterally 125Hz tuning fork diminished to 1st MPJ bilaterally ORTHO: Positive pain on palpation to toenails of the left 1,2,3,4,5 toes and right 1,2,3,4,5 toes Flexion deformities digits 2 through 5 bilateral Positive pain on palpation of right retrocalcaneal bursa and Achilles with negative palpable [place] ASSESSMENT 1. Contracture of right ankle 2. Achilles tendinitis, right leg 3. Type 2 diabetes mellitus with hyperglycemia, with long-term current use of insulin (HCC) 4. Pain due to onychomycosis of toenails [...] feet and discussed proper shoe gear. Pt to take nsaids as needed PRN pain Patient continue with walking boot Discussed possible Brandi's deformity and Brandi's exostectomy in the near future when return in approximately next month to rediscuss postoperative timeframe as well as set up for surgical procedure in the November timeframe Alexis Gilmore DPM documented in this encounterBarton County Memorial [id number] History of Present illness Narrative* Johnna Cedeño NP - 08/24/2025 11:30 AM EDT Images from the original note were not included. Subjective Patient ID: Diann Patel is a 70 y.o. female who presents for No chief complaint on file.. Diann presents today for sinus congestion, headache, ear pain with nausea and diarrhea. This all started 10 days ago. He was also sick the week before her. She did take OTC cold medication that didn't help. URI This is a new problem. The current episode started 1 to 4 weeks ago. The problem has been graduallyworsening. Maximum temperature: 99.3. The fever has been present for 1 to 2 days. Associated symptoms include abdominal pain, congestion, coughing, diarrhea, headaches, nausea, a plugged ear sensation, sinus pain, sneezing, a sore throat and wheezing. Treatments tried: Nyquil and Dayquil. The treatment provided no relief. Over the past 2 weeks, how often have you been bothered by any of the following problems? Little interest or pleasure in doing things: Not at all Feeling down, depressed, or hopeless: Not at all Patient Health Questionnaire-2 Score: 0 Medications Ordered Prior to Encounter[1] I have reviewed and reconciled the history and medication list with the patient today. Allergies[2] Social History[3] Family History[4] Medical History[5] Surgical History[6] Visit Vitals Smoking Status Former Review of Systems HENT: Positive for congestion, sinus pain, sneezing and sore throat. Respiratory: Positive for cough and wheezing. Gastrointestinal: Positive for abdominal pain, diarrhea and nausea. Neurological: Positive for headaches. Objective Physical Exam Vitals reviewed. Constitutional: Appearance: Normal appearance. HENT: Head: Normocephalic. Right Ear: Tympanic membrane normal. Left Ear: Tympanic membrane normal. Nose: Congestion present. Mouth/Throat: Mouth: Mucous membranes are moist. Pharynx: Oropharynx is clear. Posterior oropharyngeal erythema present. Eyes: Conjunctiva/sclera: Conjunctivae normal. Cardiovascular: Rate and Rhythm: Normal rate. Heart sounds: Murmur heard. Pulmonary: Effort: Pulmonary effort is normal. Breath sounds: Normal breath sounds. Skin: General: Skin is warm and dry. Neurological: General: No focal deficit present. Mental Status: She is alert and oriented to person, place, and time. Psychiatric: Mood and Affect: Mood normal. Behavior: Behavior normal. Thought Content: Thought content normal. Judgment: Judgment normal. Assessment/Plan Diagnoses and all orders for this visit: Abnormal breast exam - Bilateral screening mammogram; Future Await results of Mammogram Encounter for screening mammogram for malignant neoplasm of breast - Bilateral screening mammogram; Future Await results of Mammogram Type 2 diabetes mellitus with diabetic chronic kidney disease (HCC) Discussed today the importance of proper diabetic control. Discussed possible complications of diabetes, including loss of vision, renal failure, increased risk of heart attacks and strokes, blood vessel and/or nerve damage. Reviewed the recommended changes to reduce your blood sugars and minimize the risk of these complications. Reviewed diabetic goals, including keeping A1C <7.0% and blood pressure < 130/70. The plan for achieving these goals is adherence to medications, maintaining a healthy and balanced diet, and regular activity as discussed during today's visit. Discussed current barriers to achieving these goals. Discussed dietary goals. Discussed decreasing carbohydrates and simple sugar intake. Reviewed portion control with the patient. If the patient still has questions onthis, a referral to a Dietitian can be arranged. Reviewed medications that aid in diabetic control.Discussed proper dosing and educated the patient on possible side effects and complications. The patient verbalized understanding of these instructions. Chronic kidney disease, stage 3b ([facility]) This is a chronic medical condition that is stable since last assessment. No changes in treatment are suggested at this time. Acute non-recurrent pansinusitis - levoFLOXacin (Levaquin) 500 MG tablet; Take 1 tablet (500 mg) by mouth Daily for 10 days - methylPREDNISolone (Medrol Dospak) 4 MG tablets; Follow schedule on package instructions Start the above as directed. Reviewed potential s/e with patient. Encouraged probiotic while on antibiotic. Increase water intake, get plenty of rest. Can take OTC allergy medication for symptomatic relief. Tylenol prn. Follow up if no improvement in one week. Do not take Motrin while on steroid. The steroid will increase your blood sugar. You may take APAP while on steroid. Drink plenty of fluids. Monitor stools for any signs of bleeding such as black tarry stools. If your develop black tarry stools, stop the steroid and call the office. No follow-ups on file. [1] Current Outpatient Medications on File Prior to Visit Medication Sig Dispense Refill amLODIPine (Norvasc) 10 MG tablet Apixaban Starter Pack 5 MG tablet therapy pack Take 5 mg by mouth in the morning and 5 mg in the evening. atorvastatin (Lipitor) 80 MG tablet TAKE 1 TABLET BY MOUTH EVERY DAY 100 tablet 3 carvedilol (Coreg) 12.5 MG tablet TAKE 1 TABLET BY MOUTH TWICE DAILY WITH BREAKFAST AND WITH EVENING MEAL citalopram (CeleXA) 20 MG tablet Take 1 tablet (20 mg) by mouth Daily 100 tablet 2 Continuous Glucose Telephone Diaphragm Assembler (Dexcom G7 Telephone Diaphragm Assembler) device 1 Device yearly 1 each 0 Continuous Glucose Sensor (Dexcom G7 Sensor) misc 1 UNITS EVERY 10 (TEN) DAYS 9 each 3 dabigatran etexilate (Pradaxa) 150 MG capsule Take 150 mg by mouth in the morning and 150 mg beforebedtime. Do not crush or chew. diclofenac sodium 1 % gel APPLY 4 GRAMS TO ABDOMINAL WALL FOUR TIMES DAILY NEEDED dicyclomine (Bentyl) 10 MG capsule Take 1 capsule (10 mg) by mouth in the morning and 1 capsule (10mg) at noon and 1 capsule (10 mg) in the evening and 1 capsule (10 mg) before bedtime. 200 capsule 2 ferrous sulfate 325 (65 Fe) MG tablet Take 1 tablet (325 mg) by mouth every other day 50 tablet 0 furosemide (Lasix) 40 MG tablet TAKE 1 TABLET BY MOUTH EVERY DAY (Patient taking differently: Take 40 mg by mouth in the morning and 40 mg before bedtime.) 90 tablet 0 gabapentin (Neurontin) 300 MG capsule Take 1 capsule (300 mg) by mouth in the morning and 1 capsule(300 mg) before bedtime. 180 capsule 3 hydrALAZINE (Apresoline) 100 MG tablet insulin glargine (Lantus) 100 UNIT/ML pen Inject 45 Units under the skin at bedtime 40.5 mL 3 insulin pen needle (B-D ULTRAFINE III SHORT PEN) 31G X 8 mm misc USE DIRECTED EVERY DAY WITH BASAGLAR 100 each 3 Insulin Syringe 31G X 5/16 1 ML misc USE DIRECTED TO ADMINISTER INSULIN TWICE DAILY 200 each 3 lisinopril 20 MG tablet Take 20 mg by mouth loratadine (Claritin) 10 MG tablet Take 10 mg by mouth in the morning. methocarbamol (Robaxin) 500 MG tablet Take 500 mg by mouth every 8 (eight) hours if needed NovoLIN R 100 UNIT/ML injection INJECT 22 UNITS UNDER THE SKIN IN THE MORNING, 22 UNITS AT NOON AND22 UNITS IN THE EVENING WITH MEALS 40 mL 2 pantoprazole (ProtoNix) 40 MG EC tablet Take 40 mg by mouth in the morning. Take before meals. potassium chloride CR (Klor-Con M20) 20 MEQ ER tablet TAKE 1 TABLET(20 MEQ) BY MOUTH DAILY 90 tablet 0 [DISCONTINUED] potassium chloride CR (Klor-Con M20) 20 MEQ ER tablet Take 1 tablet (20 mEq) by mouth Daily 90 tablet 0 No current facility-administered medications on file prior to visit. [2] Allergies Allergen Reactions Penicillins Hives and Unknown childhood-swelling [3] Social History Tobacco Use Smoking status: Former Types: Cigarettes Smokeless tobacco: Never Vaping Use Vaping status: Never Used Substance Use Topics Alcohol use: Never Drug use: Defer [4] Family History Problem Relation Name Age of Onset Diabetes Other Hypertension Other [5] Past Medical History: Diagnosis Date A-fib ([facility]) 2022 with RVR Anxiety Aortic stenosis 06/2022 Carotid artery disease Cataract CHF (congestive heart failure) ([facility]) 06/2022 Colon polyp 2016 Diverticulitis DM (diabetes mellitus) ([facility]) HLD (hyperlipidemia) HTN (hypertension) OK (myocardial infarction) ([facility]) NSTEMI, initial episode of care ([facility]) 2022 Retinal hemorrhage [6] Past Surgical History: Procedure Laterality Date ACHILLES TENDON SURGERY Right 07/22/2025 ANGIOPLASTY 01/13/2023 APPENDECTOMY CARDIAC CATHETERIZATION 2009 with stent; Disease: Myocardial Infarction CATARACT EXTRACTION CHOLECYSTECTOMY COLECTOMY 1994 COLONOSCOPY 04/2006 COLONOSCOPY 06/09/2025 AVV COLONOSCOPY W/ POLYPECTOMY 12/2015 Dr. Paz CORONARY ARTERY BYPASS GRAFT 2012 CT ANGIOGRAM ABDOMEN PELVIS 07/12/[address]22 CT ANGIOGRAM ABDOMEN PELVIS CT ANGIOGRAM HEART CORONARY 07/06/2022 CT ANGIOGRAM HEART CORONARY 07/12/[address] ANGIOGRAM HEART CORONARY 06/29/2022 CT ANGIOGRAM TAVR EGD 2005 and 2011 ESOPHAGOGASTRODUODENOSCOPY 06/09/2025 AVV HERNIA REPAIR OTHER SURGICAL HISTORY Left Focal laser PARS PLANA VITRECTOMY Left for VH TONSILLECTOMY TOTAL ABDOMINAL HYSTERECTOMY W/ BILATERAL SALPINGOOPHORECTOMY documented in this encounterBarton County Memorial [id number] Evaluation note* Type Assessment Date assessment Vitreous hemorrhage, bilateral O ct impression Vitreous hemorrhage, bilateral: H43.13. Bilateral assessment Type 2 diabetes emelia itus 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 macular edema, bilateral Oct impression Type 2 diabetes emelia itus 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 macular edema, bilateral: E11.3593. Bilateral. Condition: established, stable OD, active/worsening OS assessment Presence of intraocular lens Aug impression Presence of intraocular lens: Z9 6.1. Bilateral Aug- assessment PCO (posterior capsular opacific ation), bilateral Aug- impression PCO (posterior capsular opacific ation), bilateral: H26.493 [facility] Work Phone: [phone] History of Present illness Narrative* Encounter Date Complaint History Of Prese nt Illness blurred vision The 70 year old female presents for evaluation of blurred vision in the left eye. Per patient started on Friday. States images are hard to make it and as the day goes on it becomes worse. Patient has been using refresh drops qid. Last injection in the left eye was on Jan 05. Denies any pain in either eye. States floaters are back in the right eye and denies any new ones in the left eye. PDR The 70 year old female presents for evaluation of PDR in the right eye and left eye. Patient reports around a month ago, she noticed a hair like floater that moved with her eye. Now she is seeing minimal out of her right eye. States she is still seeing a hair like floater OD temporally. No current flashes of light, just a remaining floater that remains stable. Dry eyes. Patient is using Replenish TID-QID OU. DM with PDR without ME The 69 [...] bandage. Patient is wearing her reading glasses managed services consultant since the surgery. Patient denies any pain [...] left eye. Patient denies vision changes OU. NO VISION CHANGES The patient is present for evaluation of NO VISION CHANGES in the left eye. It started about 6 week(s) ago. It occurs constantly. The condition is unchanged. Patient denies decreased vision and distortion in vision. diabetic eye exam The 65 year ol d female presents for evaluation of diabetic eye exam in the right and left eyes. diabetic retinopathy The 65 year old female [...] frequently. Patient denies eye pain and flashes. denies new vision change The pat ient denies new vision change in the right and left eye since her last exam about 5 month(s) ago. It occurs constantly. It affects both near and distance vision. The condition is stable. The patient states light sensitivity and increased watering. diabetic retinopathy The 64 year old female presents for evaluation of diabetic retinopathy in the right and left eye. Decreased vision The patient is present for evaluation of Decreased vision in the right eye and left eye. It started about 2 months ago. It occurs frequently upon standing x 1 minute then clears. The onset was gradual. The condition is mild. The condition is described as blurring. Patient denies eye pain. diabetic retinopathy The 63 year old female presents for evaluation of diabetic retinopathy in the right eye and left eye. 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 macular edema, bilateral Impression/Plan Related to PCO ( posterior capsular opacification), bilateral Aug- Impression/Plan Related to Vitre ous hemorrhage, bilateral Impression/Plan Related to Prese nce of intraocular lens Impression/Plan Related to Vitre ous hemorrhage of right eye Impression/Plan Related to PCO ( posterior capsular opacification), bilateral Impression/Plan Related to Prese nce of intraocular lens Impression/Plan Related to Type 2 diabetes mellitus 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 macular edema, bilateral Impression/Plan Related to Type 2 diabetes mellitus 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 macular edema, bilateral Impression/Plan Related to PCO ( posterior capsular opacification), bilateral Impression/Plan Related to Prese nce of intraocular lens Impression/Plan Related to Type 2 diabetes mellitus [...] Related to Hyper tension Impression/Plan Related to Hyper tension Impression/Plan Related [...] diabetic retinopathy without macular edema, right eye Return in 4 months Related to Ty [...] of right eye [facility] Work Phone: [phone] Evaluation note* Type Assessment Date assessment Type 2 diabetes emelia itus 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 macular edema, bilateral impression Type 2 diabetes emelia itus 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 macular edema, bilateral: E11.3593. Bilateral. Condition: established, stable OD, active/worsening OS assessment Presence of intraocular lens Jul impression Presence of intraocular lens: Z9 6.1 assessment PCO (posterior capsular opacific ation), bilateral impression PCO (posterior capsular opacific ation), bilateral: H26.493 assessment Vitreous hemorrhage of right eye impression Vitreous hemorrhage of right eye : H43.11. Right [facility] Work Phone: [phone] History of Present illness Narrative* Encounter Date Complaint History Of Prese nt Illness PDR The 70 year old female presents for evaluation of PDR in the right eye and left eye. Patient reports around a month ago, she noticed a hair like floater that moved with her eye. Now she is seeing minimal out of her right eye. States she is still seeing a hair like floater OD temporally. No current flashes of light, just a remaining floater that remains stable. Dry eyes. Patient is using Replenish TID-QID OU. DM with PDR without ME The 69 [...] her right eye diagnosed and referred by Dr.Zahler. Patient reports she sees black lines and [...] bandage. Patient is wearing her reading glasses managed services consultant since the surgery. Patient denies any pain [...] and left eye. denies vision changes The patilila t denies vision changes in the right [...] described as blurring. Patient denies eye pain. [facility] Work Phone: [phone] Instructions* Date Instruction Additional Infor ralphleena Impression/Plan Related to Prese nce of intraocular lens Impression/Plan Related to PCO ( posterior capsular opacification), bilateral Impression/Plan Related to Vitre ous hemorrhage of right eye Impression/Plan Related to Type 2 [...] Impression/Plan Related to Vitre ous hemorrhage, bilateral Impression/Plan Related to Type 2 diabetes mellitus 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 macular edema, bilateral Impression/Plan Related to Combi robin forms of age-related cataract, bilateral Return in 1 week wit h [...] of right eye [facility] Work Phone: [phone] History of Present illness Narrative* Alexis Gilmore, KIKA - 07/27/2025 2:30 PM EDT Patient: Diann Patel : 1955 PCP: Champ Bell MD SUBJECTIVE This is a 70 y.o. female that presents today 5 days s/p right achilles tenotomy with Tenex device Pt denies n/f/v/c and has minimal pain to post op site. Pt states that they have been keeping dressing dry and intact and have been PWB to post op foot Pt presents today for follow up. Allergies: Allergies Allergen Reactions Penicillins Hives and Unknown childhood-swelling Past Medical History: Past Medical History: Diagnosis Date A-fib (FORM[facility]LY [facility]) 2022 with RVR Anxiety Aortic stenosis 06/2022 Carotid artery disease Cataract CHF (congestive heart failure) ([facility]) 06/2022 Colon polyp 2016 Diverticulitis DM (diabetes mellitus) ([facility]) HLD (hyperlipidemia) HTN (hypertension) OK (myocardial infarction) ([facility]) NSTEMI, initial episode of care ([facility]) 2022 Retinal hemorrhage Medications: Current Outpatient Medications: amLODIPine (Norvasc) 10 MG tablet, , Disp: , Rfl: Apixaban Starter Pack 5 MG tablet therapy pack, Take 5 mg by mouth in the morning and 5 mg in the evening., Disp: , Rfl: atorvastatin (Lipitor) 80 MG tablet, TAKE 1 TABLET BY MOUTH EVERY DAY, Disp: 100 tablet, Rfl: 3 carvedilol (Coreg) 12.5 MG tablet, TAKE 1 TABLET BY MOUTH TWICE DAILY WITH BREAKFAST AND WITH EVENING MEAL, Disp: , Rfl: citalopram (CeleXA) 20 MG tablet, Take 1 tablet (20 mg) by mouth Daily, Disp: 100 tablet, Rfl: 2 Continuous Glucose Telephone Diaphragm Assembler (Dexcom G7 Telephone Diaphragm Assembler) device, 1 Device yearly, Disp: 1 each, Rfl: 0 Continuous Glucose Sensor (Dexcom G7 Sensor) misc, 1 UNITS EVERY 10 (TEN) DAYS, Disp: 9 each, Rfl: 3 dabigatran etexilate (Pradaxa) 150 MG capsule, Take 150 mg by mouth in the morning and 150 mg before bedtime. Do not crush or chew., Disp: , Rfl: diclofenac sodium 1 % gel, APPLY 4 GRAMS TO ABDOMINAL WALL FOUR TIMES DAILY NEEDED, Disp: , Rfl: dicyclomine (Bentyl) 10 MG capsule, Take 1 capsule (10 mg) by mouth in the morning and 1 capsule (10 mg) at noon and 1 capsule (10 mg) in the evening and 1 capsule (10 mg) before bedtime., Disp: 200 capsule, Rfl: 2 ferrous sulfate 325 (65 Fe) MG tablet, Take 325 mg by mouth every other day, Disp: , Rfl: furosemide (Lasix) 40 MG tablet, TAKE 1 TABLET BY MOUTH EVERY DAY (Patient taking differently: Take40 mg by mouth in the morning and 40 mg before bedtime.), Disp: 90 tablet, Rfl: 0 gabapentin (Neurontin) 300 MG capsule, Take 1 capsule (300 mg) by mouth in the morning and 1 capsule (300 mg) before bedtime., Disp: 180 capsule, Rfl: 3 hydrALAZINE (Apresoline) 100 MG tablet, , Disp: , Rfl: HYDROcodone-acetaminophen (Alsea) 5-325 MG tablet, Take 1 tablet by mouth every 8 (eight) hours if needed for moderate pain (PRN pain) for up to 5 days, Disp: 15 tablet, Rfl: 0 insulin glargine (Lantus) 100 UNIT/ML pen, Inject 40 Units under the skin at bedtime, Disp: 36 mL, Rfl: 3 insulin pen needle (B-D ULTRAFINE III SHORT PEN) 31G X 8 mm misc, USE DIRECTED EVERY DAY WITH BASAGLAR, Disp: 100 each, Rfl: 3 Insulin Syringe 31G X 5/16 1 ML misc, USE DIRECTED TO ADMINISTER INSULIN TWICE DAILY, Disp: 200each, Rfl: 3 lisinopril 20 MG tablet, Take 20 mg by mouth, Disp: , Rfl: loratadine (Claritin) 10 MG tablet, Take 10 mg by mouth in the morning., Disp: , Rfl: methocarbamol (Robaxin) 500 MG tablet, Take 500 mg by mouth every 8 (eight) hours if needed, Disp: , Rfl: NovoLIN R 100 UNIT/ML injection, INJECT 22 UNITS UNDER THE SKIN IN THE MORNING, 22 UNITS AT NOON AND 22 UNITS IN THE EVENING WITH MEALS, Disp: 40 mL, Rfl: 2 pantoprazole (ProtoNix) 40 MG EC tablet, Take 40 mg by mouth in the morning. Take before meals., Disp: , Rfl: potassium chloride CR (Klor-Con M20) 20 MEQ ER tablet, Take 1 tablet (20 mEq) by mouth Daily, Disp:90 tablet, Rfl: 0 ROS: General: denies fever, chills, fatigue, malaise OBJECTIVE LE EXAM: Derm: Sutures intact to right foot with negative erythema, negative drainage, minimal edema with negative clinical signs of infection. VASC: Negative DP and negative PT pedal pulses with warm to cool ibia to toes left and positive edema to left foot. NEURO: 5.07 [place] monofilament test diminished to digits and forefoot bilaterally 125Hz tuning fork diminished to 1st MPJ bilaterally Musculoskeletal: Negative pain on palpation to right calf. Ortho: Ankle range of motion greater than 10 degrees of dorsiflexion at right ankle joint. ASSESSMENT 5 days s/p right achilles tenotomy with Tenex device 1. Contracture of right ankle 2. Achilles tendinitis, right leg PLAN Removal of sutures today and may begin to get foot wet. Continue with cam walker Patient may take anti-inflammatories as needed for pain. May continue with ice to foot as needed p.r.n. Rx for pain medication Alexis Gilmore DPM documented in this encounterBarton County Memorial [id number] History of Present illness Narrative* Johnna Cedeño, CREDIT ADMINISTRATION SPECIALIST - 07/20/2025 11:30 AM EDT Images from the original note were not included. Subjective Patient ID: Diann Patel is a 70 y.o. female who presents for No chief complaint on file.. Pt is here for surgical clearance. Dr. Gilmore with be working on bone spurs. Over the past 2 weeks, how often have you been bothered by any of the following problems? Little interest or pleasure in doing things: Several days Feeling down, depressed, or hopeless: Not at all Patient Health Questionnaire-2 Score: 1 If you checked off any problems on this questionnaire so far, How difficult have these problems made it for you to do your work, take care of things at home, or get along with other people?: Somewhat difficult Current Outpatient Medications on File Prior to Visit Medication Sig Dispense Refill amLODIPine (Norvasc) 10 MG tablet Apixaban Starter Pack 5 MG tablet therapy pack Take 5 mg by mouth in the morning and 5 mg in the evening. atorvastatin (Lipitor) 80 MG tablet TAKE 1 TABLET BY MOUTH EVERY DAY 100 tablet 3 carvedilol (Coreg) 12.5 MG tablet TAKE 1 TABLET BY MOUTH TWICE DAILY WITH BREAKFAST AND WITH EVENING MEAL citalopram (CeleXA) 20 MG tablet Take 1 tablet (20 mg) by mouth Daily 100 tablet 2 Continuous Glucose Telephone Diaphragm Assembler (Dexcom G7 Telephone Diaphragm Assembler) device 1 Device yearly 1 each 0 Continuous Glucose Sensor (Dexcom G7 Sensor) misc 1 UNITS EVERY 10 (TEN) DAYS 9 each 3 dabigatran etexilate (Pradaxa) 150 MG capsule Take 150 mg by mouth in the morning and 150 mg beforebedtime. Do not crush or chew. diclofenac sodium 1 % gel APPLY 4 GRAMS TO ABDOMINAL WALL FOUR TIMES DAILY NEEDED dicyclomine (Bentyl) 10 MG capsule Take 1 capsule (10 mg) by mouth in the morning and 1 capsule (10mg) at noon and 1 capsule (10 mg) in the evening and 1 capsule (10 mg) before bedtime. 200 capsule 2 ferrous sulfate 325 (65 Fe) MG tablet Take 325 mg by mouth every other day furosemide (Lasix) 40 MG tablet TAKE 1 TABLET BY MOUTH EVERY DAY (Patient taking differently: Take 40 mg by mouth in the morning and 40 mg before bedtime.) 90 tablet 0 gabapentin (Neurontin) 300 MG capsule Take 1 capsule (300 mg) by mouth in the morning and 1 capsule(300 mg) before bedtime. 180 capsule 3 hydrALAZINE (Apresoline) 100 MG tablet HYDROcodone-acetaminophen (Alsea) 5-325 MG tablet Take 1 tablet by mouth every 8 (eight) hours if needed for moderate pain (PRN pain) for up to 5 days 15 tablet 0 insulin glargine (Lantus) 100 UNIT/ML pen Inject 40 Units under the skin at bedtime 36 mL 3 insulin pen needle (B-D ULTRAFINE III SHORT PEN) 31G X 8 mm misc USE DIRECTED EVERY DAY WITH BASAGLAR 100 each 3 Insulin Syringe 31G X 5/16 1 ML misc USE DIRECTED TO ADMINISTER INSULIN TWICE DAILY 200 each 3 lisinopril 20 MG tablet Take 20 mg by mouth loratadine (Claritin) 10 MG tablet Take 10 mg by mouth in the morning. methocarbamol (Robaxin) 500 MG tablet Take 500 mg by mouth every 8 (eight) hours if needed NovoLIN R 100 UNIT/ML injection INJECT 22 UNITS UNDER THE SKIN IN THE MORNING, 22 UNITS AT NOON AND22 UNITS IN THE EVENING WITH MEALS 40 mL 2 pantoprazole (ProtoNix) 40 MG EC tablet Take 40 mg by mouth in the morning. Take before meals. potassium chloride CR (Klor-Con M20) 20 MEQ ER tablet Take 1 tablet (20 mEq) by mouth Daily 90 tablet 0 No current facility-administered medications on file prior [...] Other Past Medical History: Diagnosis Date A-fib (FORM[facility]) 2022 with RVR Anxiety Aortic stenosis 06/2022 Carotid artery disease Cataract CHF (congestive heart failure) ([facility]) 06/2022 Colon polyp 2016 Diverticulitis DM (diabetes mellitus) ([facility]) HLD (hyperlipidemia) HTN (hypertension) OK (myocardial infarction) ([facility]) NSTEMI, initial episode of care ([facility]) 2022 Retinal hemorrhage Past Surgical History: Procedure Laterality Date ANGIOPLASTY 01/13/2023 APPENDECTOMY CARDIAC CATHETERIZATION 2009 with stent; Disease: Myocardial Infarction CATARACT EXTRACTION CHOLECYSTECTOMY COLECTOMY 1994 COLONOSCOPY 04/2006 COLONOSCOPY 06/09/2025 AVV COLONOSCOPY W/ POLYPECTOMY 12/2015 Dr. Paz CORONARY ARTERY BYPASS GRAFT 2012 CT ANGIOGRAM ABDOMEN PELVIS 07/12/2022 CT ANGIOGRAM ABDOMEN PELVIS CT ANGIOGRAM HEART CORONARY 07/06/2022 CT ANGIOGRAM HEART CORONARY 07/12/[address] ANGIOGRAM HEART CORONARY 06/29/2022 CT ANGIOGRAM TAVR EGD 2005 and 2011 ESOPHAGOGASTRODUODENOSCOPY 06/09/2025 AVV HERNIA REPAIR OTHER SURGICAL HISTORY Left Focal laser [place] VITRECTOMY Left for VH TONSILLECTOMY TOTAL ABDOMINAL HYSTERECTOMY W/ BILATERAL SALPINGOOPHORECTOMY Visit Vitals Smoking Status Former Review of Systems Constitutional: Negative. HENT: Negative. Eyes: Negative. Respiratory: Negative. Cardiovascular: Negative. Gastrointestinal: Negative. Genitourinary: Negative. Musculoskeletal: Negative. Skin: Negative. Neurological: Negative. Psychiatric/Behavioral: Negative. All other systems reviewed and are negative. Endocrine: Negative. Objective Physical Exam Vitals reviewed. Constitutional: Appearance: Normal appearance. HENT: Head: Normocephalic. Right Ear: Tympanic membrane normal. Left Ear: Tympanic membrane normal. Nose: Nose normal. Mouth/Throat: Mouth: Mucous membranes are moist. Pharynx: Oropharynx is clear. Eyes: Conjunctiva/sclera: Conjunctivae normal. Pupils: Pupils are equal, round, and reactive to light. Cardiovascular: Rate and Rhythm: Normal rate and regular rhythm. Heart sounds: Normal heart sounds. Pulmonary: Effort: Pulmonary effort is normal. Breath sounds: Normal breath sounds. Abdominal: General: Bowel sounds are normal. Palpations: Abdomen is soft. Musculoskeletal: Cervical back: Neck supple. Skin: General: Skin is warm and dry. Neurological: General: No focal deficit present. Mental Status: She is alert and oriented to person, place, and time. Psychiatric: Mood and Affect: Mood normal. Behavior: Behavior normal. Thought Content: Thought content normal. Judgment: Judgment normal. Assessment/Plan Diagnoses and all orders for this visit: Preoperative clearance The patient was interviewed and examined. The patient's medical history and medications were reviewed. Patient is to follow guidance of surgical team regarding all medications. There are no uncontrolled medical problems at present. Patient is active and has no chest pain or dyspnea. All available PAT was reviewed. There are no medical contraindications for surgery noted at this time, and the patient is considered low risk for the planned upcoming procedure. The patient is cleared for surgery without additional testing. Type 2 diabetes mellitus with hyperglycemia, with long-term current use of insulin (HCC) - POCT glycosylated hemoglobin (Hb A1C) docked device - insulin glargine (Lantus) 100 UNIT/ML pen; Inject 45 Units under the skin at bedtime A1C is elevated. Lantus increased from 40 to 45 units. Discussed today the importance of proper diabetic control. Discussed possible complications of diabetes, including loss of vision, renal failure, increased risk of heart attacks and strokes, blood vessel and/or nerve damage. Reviewed the recommended changes to reduce your blood sugars and minimize the risk of these complications. Reviewed diabetic goals, including keeping A1C <7.0% and blood pressure < 130/70. The plan for achieving these goals is adherence to medications, maintaining a healthy and balanced diet, and regular activity as discussed during today's visit. Discussed current barriers to achieving these goals. Discussed dietary goals. Discussed decreasing carbohydrates and simple sugar intake. Reviewed portion control with the patient. If the patient still has questions on this, a referral to a Dietitian can be arranged. Reviewed medications that aid in diabetic control. Discussed proper dosing and educated the patient on possible side effects and complications. The patient verbalized understanding of these instructions. 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 Discussed possible complications of diabetes, including loss of vision, renal failure, increased risk of heart attacks and strokes, blood vessel and/or nerve damage. Reviewed the recommended changes to reduce your blood sugars and minimize the risk of these complications. Reviewed diabetic goals, including keeping A1C <7.0% and blood pressure < 130/70. The plan for achieving these goals is adherence to medications, maintaining a healthy and balanced diet, and regular activity as discussed during today's visit. Discussed current barriers to achieving these goals. Discussed dietary goals. Discussed decreasing carbohydrates and simple sugar intake. Reviewed portion control with the patient. If the patient still has questions onthis, a referral to a Dietitian can be arranged. Reviewed medications that aid in diabetic control.Discussed proper dosing and educated the patient on possible side effects and complications. The patient verbalized understanding of these instructions. Asthma without status asthmaticus without complication, unspecified asthma severity, unspecified whether persistent (HCC) - ferrous sulfate 325 (65 Fe) MG tablet; Take 1 tablet (325 mg) by mouth every other day This is a chronic medical condition that is stable since last assessment. No changes in treatment are suggested at this time. Major depressive disorder, single episode, in full remission Verbalizes understanding of the need to be seen in the ER for suicidal/homicidal ideation, excessive stress, elevated blood pressure or palpitations. Pt offers understanding of treatment plan. I discussed the side effects of the medications described and to seek medical care if they arise. Discussed stress mgmt strategies, social support and importance of healthy diet, exercise and regular sleep habits. Advised on relaxation methods to decrease anxiety and depression. No follow-ups on file. * REYMUNDO HEALY - 07/20/2025 11:30 AM EDT Images from the original note were not included. Subjective Patient ID: Diann Patel is a 70 y.o. female who presents for No chief complaint on file.. Diann presents today for a DM follow up wit her last A1c being 7.8 in April. She also needs a surgical eval for rt ankle surgery with Dr Gilmore. Over the past 2 weeks, how often have you been bothered by any of the following problems? Little interest or pleasure in doing things: Several days Feeling down, depressed, or hopeless: Not at all Patient Health Questionnaire-2 Score: 1 If you checked off any problems on this questionnaire so far, How difficult have these problems made it for you to do your work, take care of things at home, or get along with other people?: Somewhat difficult Current Outpatient Medications on File Prior to Visit Medication Sig Dispense Refill amLODIPine (Norvasc) 10 MG tablet Apixaban Starter Pack 5 MG tablet therapy pack Take 5 mg by mouth in the morning and 5 mg in the evening. atorvastatin (Lipitor) 80 MG tablet TAKE 1 TABLET BY MOUTH EVERY DAY 100 tablet 3 carvedilol (Coreg) 12.5 MG tablet TAKE 1 TABLET BY MOUTH TWICE DAILY WITH BREAKFAST AND WITH EVENING MEAL citalopram (CeleXA) 20 MG tablet Take 1 tablet (20 mg) by mouth Daily 100 tablet 2 Continuous Glucose Telephone Diaphragm Assembler (Dexcom G7 Telephone Diaphragm Assembler) device 1 Device yearly 1 each 0 Continuous Glucose Sensor (Dexcom G7 Sensor) misc 1 UNITS EVERY 10 (TEN) DAYS 9 each 3 dabigatran etexilate (Pradaxa) 150 MG capsule Take 150 mg by mouth in the morning and 150 mg beforebedtime. Do not crush or chew. diclofenac sodium 1 % gel APPLY 4 GRAMS TO ABDOMINAL WALL FOUR TIMES DAILY NEEDED dicyclomine (Bentyl) 10 MG capsule Take 1 capsule (10 mg) by mouth in the morning and 1 capsule (10mg) at noon and 1 capsule (10 mg) in the evening and 1 capsule (10 mg) before bedtime. 200 capsule 2 ferrous sulfate 325 (65 Fe) MG tablet Take 325 mg by mouth every other day furosemide (Lasix) 40 MG tablet TAKE 1 TABLET BY MOUTH EVERY DAY (Patient taking differently: Take 40 mg by mouth in the morning and 40 mg before bedtime.) 90 tablet 0 gabapentin (Neurontin) 300 MG capsule Take 1 capsule (300 mg) by mouth in the morning and 1 capsule(300 mg) before bedtime. 180 capsule 3 hydrALAZINE (Apresoline) 100 MG tablet HYDROcodone-acetaminophen (Alsea) 5-325 MG tablet Take 1 tablet by mouth every 8 (eight) hours if needed for moderate pain (PRN pain) for up to 5 days 15 tablet 0 insulin glargine (Lantus) 100 UNIT/ML pen Inject 40 Units under the skin at bedtime 36 mL 3 insulin pen needle (B-D ULTRAFINE III SHORT PEN) 31G X 8 mm misc USE DIRECTED EVERY DAY WITH BASAGLAR 100 each 3 Insulin Syringe 31G X 5/16 1 ML misc USE DIRECTED TO ADMINISTER INSULIN TWICE DAILY 200 each 3 lisinopril 20 MG tablet Take 20 mg by mouth loratadine (Claritin) 10 MG tablet Take 10 mg by mouth in the morning. methocarbamol (Robaxin) 500 MG tablet Take 500 mg by mouth every 8 (eight) hours if needed NovoLIN R 100 UNIT/ML injection INJECT 22 UNITS UNDER THE SKIN IN THE MORNING, 22 UNITS AT NOON AND22 UNITS IN THE EVENING WITH MEALS 40 mL 2 pantoprazole (ProtoNix) 40 MG EC tablet Take 40 mg by mouth in the morning. Take before meals. potassium chloride CR (Klor-Con M20) 20 MEQ ER tablet Take 1 tablet (20 mEq) by mouth Daily 90 tablet 0 No current facility-administered medications on file prior [...] Other Past Medical History: Diagnosis Date A-fib ([facility]) 2022 with RVR Anxiety Aortic stenosis 06/2022 Carotid artery disease Cataract CHF (congestive heart failure) ([facility]) 06/2022 Colon polyp 2016 Diverticulitis DM (diabetes mellitus) ([facility]) HLD (hyperlipidemia) HTN (hypertension) OK (myocardial infarction) ([facility]) NSTEMI, initial episode of care ([facility]) 2022 Retinal hemorrhage Past Surgical History: Procedure Laterality Date ANGIOPLASTY 01/13/2023 APPENDECTOMY CARDIAC CATHETERIZATION 2009 with stent; Disease: Myocardial Infarction CATARACT EXTRACTION CHOLECYSTECTOMY COLECTOMY 1994 COLONOSCOPY 04/2006 COLONOSCOPY 06/09/2025 AVV COLONOSCOPY W/ POLYPECTOMY 12/2015 Dr. Paz CORONARY ARTERY BYPASS GRAFT 2012 CT ANGIOGRAM ABDOMEN PELVIS 07/12/2022 CT ANGIOGRAM ABDOMEN PELVIS CT ANGIOGRAM HEART CORONARY 07/06/2022 CT ANGIOGRAM HEART CORONARY 07/12/[address] ANGIOGRAM HEART CORONARY 06/29/2022 CT ANGIOGRAM TAVR EGD 2005 and 2011 ESOPHAGOGASTRODUODENOSCOPY 06/09/2025 AVV HERNIA REPAIR OTHER SURGICAL HISTORY Left Focal laser PARS [place]NA VITRECTOMY Left for VH TONSILLECTOMY TOTAL ABDOMINAL HYSTERECTOMY W/ BILATERAL SALPINGOOPHORECTOMY Visit Vitals Smoking Status Former Review of Systems Objective Physical Exam Assessment/Plan No follow-ups on file. documented in this encounterBarton County Memorial [id number] History of Present illness Narrative* Alexis Gilmore DPM - 07/18/2025 11:00 AM EDT Patient: Diann Patel : 1955 PCP: Champ Bell MD SUBJECTIVE Pt presents today for follow up of right heel spur with achilles tendonitis. Pt has had previous treatment of 2nd steroid injection, nsaids, and cannot wear walking boot with negative improvement. Ptstates current pain on a 1-10 scale is a 8 . Pt presents today for preop exam for right percutaneous achilles tenotomy with tenex device. Patient is DM2 with hx of PVD and [facility] vascular intervention in the past. Allergies: Allergies Allergen Reactions Penicillins Hives and Unknown childhood-swelling Past Medical History: Past Medical History: Diagnosis Date A-fib (FORM[facility]LY [facility]) 2022 with RVR Anxiety Aortic stenosis 06/2022 Carotid artery disease Cataract CHF (congestive heart failure) ([facility]) 06/2022 Colon polyp 2016 Diverticulitis DM (diabetes mellitus) ([facility]) HLD (hyperlipidemia) HTN (hypertension) OK (myocardial infarction) ([facility]) NSTEMI, initial episode of care ([facility]) 2022 Retinal hemorrhage Medications: Current Outpatient Medications: amLODIPine (Norvasc) 10 MG tablet, , Disp: , Rfl: Apixaban Starter Pack 5 MG tablet therapy pack, Take 5 mg by mouth in the morning and 5 mg in the evening., Disp: , Rfl: atorvastatin (Lipitor) 80 MG tablet, TAKE 1 TABLET BY MOUTH EVERY DAY, Disp: 100 tablet, Rfl: 3 carvedilol (Coreg) 12.5 MG tablet, TAKE 1 TABLET BY MOUTH TWICE DAILY WITH BREAKFAST AND WITH EVENING MEAL, Disp: , Rfl: citalopram (CeleXA) 20 MG tablet, Take 1 tablet (20 mg) by mouth Daily, Disp: 100 tablet, Rfl: 2 Continuous Glucose Telephone Diaphragm Assembler (Dexcom G7 Telephone Diaphragm Assembler) device, 1 Device yearly, Disp: 1 each, Rfl: 0 Continuous Glucose Sensor (Dexcom G7 Sensor) misc, 1 UNITS EVERY 10 (TEN) DAYS, Disp: 9 each, Rfl: 3 dabigatran etexilate (Pradaxa) 150 MG capsule, Take 150 mg by mouth in the morning and 150 mg before bedtime. Do not crush or chew., Disp: , Rfl: diclofenac sodium 1 % gel, APPLY 4 GRAMS TO ABDOMINAL WALL FOUR TIMES DAILY NEEDED, Disp: , Rfl: dicyclomine (Bentyl) 10 MG capsule, Take 1 capsule (10 mg) by mouth in the morning and 1 capsule (10 mg) at noon and 1 capsule (10 mg) in the evening and 1 capsule (10 mg) before bedtime., Disp: 200 capsule, Rfl: 2 ferrous sulfate 325 (65 Fe) MG tablet, Take 325 mg by mouth every other day, Disp: , Rfl: furosemide (Lasix) 40 MG tablet, TAKE 1 TABLET BY MOUTH EVERY DAY (Patient taking differently: Take40 mg by mouth in the morning and 40 mg before bedtime.), Disp: 90 tablet, Rfl: 0 gabapentin (Neurontin) 300 MG capsule, Take 1 capsule (300 mg) by mouth in the morning and 1 capsule (300 mg) before bedtime., Disp: 180 capsule, Rfl: 3 hydrALAZINE (Apresoline) 100 MG tablet, , Disp: , Rfl: insulin glargine (Lantus) 100 UNIT/ML pen, Inject 40 Units under the skin at bedtime, Disp: 36 mL, Rfl: 3 insulin pen needle (B-D ULTRAFINE III SHORT PEN) 31G X 8 mm misc, USE DIRECTED EVERY DAY WITH BASAGLAR, Disp: 100 each, Rfl: 3 Insulin Syringe 31G X 5/16 1 ML misc, USE DIRECTED TO ADMINISTER INSULIN TWICE DAILY, Disp: 200each, Rfl: 3 lisinopril 20 MG tablet, Take 20 mg by mouth, Disp: , Rfl: loratadine (Claritin) 10 MG tablet, Take 10 mg by mouth in the morning., Disp: , Rfl: methocarbamol (Robaxin) 500 MG tablet, Take 500 mg by mouth every 8 (eight) hours if needed, Disp: , Rfl: NovoLIN R 100 UNIT/ML injection, INJECT 22 UNITS UNDER THE SKIN IN THE MORNING, 22 UNITS AT NOON AND 22 UNITS IN THE EVENING WITH MEALS, Disp: 40 mL, Rfl: 2 pantoprazole (ProtoNix) 40 MG EC tablet, Take 40 mg by mouth in the morning. Take before meals., Disp: , Rfl: potassium chloride CR (Klor-Con M20) 20 MEQ ER tablet, Take 1 tablet (20 mEq) by mouth Daily, Disp:90 tablet, Rfl: 0 Social History: Social History Socioeconomic History Marital status: Spouse name: Not on file Number of children: Not on file Years of education: Not on file Highest education level: Not on file Occupational History Not on file Tobacco Use Smoking status: Former Types: Cigarettes Smokeless tobacco: Never Vaping Use Vaping status: Never Used Substance and Sexual Activity Alcohol use: Never Drug use: Defer Sexual activity: Defer Partners: Decline to Answer Other Topics Concern Not on file Social History Narrative Not on file Social Drivers of Health Financial Resource Strain: Low Risk (02/18/2025) Received from [facility] Overall Financial Resource Strain (CARDIA) Difficulty of Paying Living Expenses: Not hard at all Food Insecurity: No Food Insecurity (02/18/2025) Received from [facility] Hunger Vital Sign Within the past 12 months, you worried that your food would run out before you got the money to buymore.: Never true Ran Out of Food in the Last Year: Not on file Transportation Needs: No Transportation Needs (02/18/2025) Received from [facility] Transportation In the past 12 months, has lack of transportation kept you from medical appointments or from getting medications?: No Lack of Transportation (Non-Medical): Not on file Physical Activity: Inactive (06/22/2024) Received from [facility] Exercise Vital Sign Days of Exercise per Week: 0 days Minutes of Exercise per Session: 0 min Stress: Stress Concern Present (12/03/2023) Received from [facility] [place] of Occupational Health - Occupational Stress Questionnaire Feeling of Stress : To some extent Social Connections: Moderately Isolated (12/03/2023) Received from [facility] Social Connection and Isolation Panel [NHANES] Frequency of Communication with Friends and Family: More than three times a week Frequency of Social Gatherings with Friends and Family: More than three times a week Attends Bahai Services: Never Active Member of Clubs or Organizations: No Attends Club or Organization Meetings: Never Marital Status: Intimate Partner Violence: Not At Risk (04/26/2025) Received from [facility] Humiliation, Afraid, Rape, and Kick questionnaire Fear of Current or Ex-Partner: No Emotionally Abused: No Physically Abused: No Sexually Abused: No Housing Stability: Low Risk (02/18/2025) Received from [facility] Housing Stability Vital Sign In the last 12 months, was there a time when you were not able to pay the mortgage or rent on time?: No Number of Times Moved in the Last Year: Not on file At any time in the past 12 months, were you homeless or living in a retirement (including now)?: No ROS: Gastrointestinal: denies abdominal pain, ulcers, or changes in appetite or bowel habits Musculoskeletal: positive hx of arthritis, loss of strength, with positive history of back pain Cardiovascular: denies CP, palpitations, irregular rhythms. Positive history of CHF and aortic valve replacement with blood thinner and OK in the past OBJECTIVE LE EXAM: DERM: Elongated thick yellow [...] positive edema to left foot. NEURO: 5.07 [place] monofilament test diminished to digits and forefoot bilaterally 125Hz tuning fork diminished to 1st MPJ bilaterally ORTHO: Positive pain on palpation to toenails of the left 1,2,3,4,5 toes and right 1,2,3,4,5 toes Flexion deformities digits 2 through 5 bilateral positive pain on palpation of right retrocalcaneal bursa and Achilles with negative palpable [place] ASSESSMENT 1. Contracture of right ankle 2. Achilles tendinitis, right leg 3. Diabetes mellitus due to underlying condition with diabetic polyneuropathy, unspecified whether terminal carman insulin use (HCC) PLAN Patient given prescription for pain medication to be taken postoperatively. Decision for surgery today and patient cleared from a podiatric/ medical standpoint for surgery and to proceed with surgery. Pt to have pre op H/P per PCP for medical clearance for surgery and will be reviewed along with labs prior to surgery. Pt scheduled for a right percutaneous achilles tenotomy with tenex device Discussed with the patient the nature of condition and operative vs nonoperative care. The surgicalplans, risks, alternatives, benefits, post op complications and terminal carman expectations were discussed including but not limited to: infection,bone infection,wound dehiscence hardware failure and irritation,wound dehiscence,delay union/mal union/non union of bone. RSDS,neuroma,duty limitations,DVT/PE, OK,nerve damage, scar, loss of sensation, swelling. Pt understands the proposed sx in detail and has agreed with proposed surgery. No guarantees were given or implied. Pt willingly consents to procedure and to have surgical procedure. Pt also understands risks including COVID-19 current risk in a surgical setting. Pt is a low acceptable risk for outpatient surgery from a podiatric/medical standpoint with an ASA of a 2. Alexis Gilmore DPM, FACFAS H&P up to date and current (date) Date: July 18, 2025 Alexis Gilmore DPM documented in this encounterBarton County Memorial [id number] History of Present illness Narrative* Teena Delcid DO - 07/12/2025 1:00 PM EDT Images from the original note were not included. Assessment/Plan Diagnoses and all orders for this visit: VH (vitreous hemorrhage), right ([facility]) - Ms. Patel has a new VH of indeterminate time in right eye (OD). Last visit [facility] was 20/25. Advised seeing retina due to considerable decline in vision. 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 Hopefully she is not dealing with a TRD. Advised prompt return to [facility]. Dry eyes - Dry Eyes OU -- Environmental changes to minimize dryness and exposure and the use of artificial tears were recommended. documented in this encounterBarton County Memorial [id number] History of Present illness Narrative* Alexis Gilmore DPM - 06/16/2025 2:30 PM EDT Patient: Diann Patel : 1955 PCP: Champ Bell MD SUBJECTIVE Pt presents today for follow up of right heel spur with achilles tendonitis. Pt has had previous treatment of 2nd steroid injection, nsaids, and cannot wear walking boot with negativeimprovement. Pt states current pain on a 1-10 scale is a 8 . Discussion of Tenex procedure in the past Pt presents to [facility] for follow up tx. Patient presents today with a CC of elongated, thick nails. Pt states nails have been elongated and thick for many years and cause pain with ambulation in shoegear. Pt has tried previous treatment with minimal relief. Pt presents today for nail care and treatment. Patient is DM2 Patient is DM2 with hx of PVD and [facility] vascular intervention in the past. Allergies: Allergies Allergen Reactions Penicillins Hives and Unknown childhood-swelling Past Medical History: Past Medical History: Diagnosis Date A-fib (FORM[facility]) 2022 with RVR Anxiety Aortic stenosis 06/2022 Carotid artery disease Cataract CHF (congestive heart failure) ([facility]) 06/2022 Colon polyp 2016 Diverticulitis DM (diabetes mellitus) ([facility]) HLD (hyperlipidemia) HTN (hypertension) OK (myocardial infarction) ([facility]) NSTEMI, initial episode of care ([facility]) 2022 Retinal hemorrhage Medications: Current Outpatient Medications: amLODIPine (Norvasc) 10 MG tablet, , Disp: , Rfl: Apixaban Starter Pack 5 MG tablet therapy pack, Take 5 mg by mouth in the morning and 5 mg in the evening., Disp: , Rfl: atorvastatin (Lipitor) 80 MG tablet, TAKE 1 TABLET BY MOUTH EVERY DAY, Disp: 100 tablet, Rfl: 3 carvedilol (Coreg) 12.5 MG tablet, TAKE 1 TABLET BY MOUTH TWICE DAILY WITH BREAKFAST AND WITH EVENING MEAL, Disp: , Rfl: citalopram (CeleXA) 20 MG tablet, Take 1 tablet (20 mg) by mouth Daily, Disp: 100 tablet, Rfl: 2 Continuous Glucose Telephone Diaphragm Assembler (Dexcom G7 Telephone Diaphragm Assembler) device, 1 Device yearly, Disp: 1 each, Rfl: 0 Continuous Glucose Sensor (Dexcom G7 Sensor) misc, 1 UNITS EVERY 10 (TEN) DAYS, Disp: 9 each, Rfl: 3 dabigatran etexilate (Pradaxa) 150 MG capsule, Take 150 mg by mouth in the morning and 150 mg before bedtime. Do not crush or chew., Disp: , Rfl: diclofenac sodium 1 % gel, APPLY 4 GRAMS TO ABDOMINAL WALL FOUR TIMES DAILY NEEDED, Disp: , Rfl: dicyclomine (Bentyl) 10 MG capsule, Take 1 capsule (10 mg) by mouth in the morning and 1 capsule (10 mg) at noon and 1 capsule (10 mg) in the evening and 1 capsule (10 mg) before bedtime., Disp: 200 capsule, Rfl: 2 ferrous sulfate 325 (65 Fe) MG tablet, Take 325 mg by mouth every other day, Disp: , Rfl: furosemide (Lasix) 40 MG tablet, TAKE 1 TABLET BY MOUTH EVERY DAY (Patient taking differently: Take40 mg by mouth in the morning and 40 mg before bedtime.), Disp: 90 tablet, Rfl: 0 gabapentin (Neurontin) 300 MG capsule, Take 1 capsule (300 mg) by mouth in the morning and 1 capsule (300 mg) before bedtime., Disp: 180 capsule, Rfl: 3 hydrALAZINE (Apresoline) 100 MG tablet, , Disp: , Rfl: insulin glargine (Lantus) 100 UNIT/ML pen, Inject 40 Units under the skin at bedtime, Disp: 36 mL, Rfl: 3 insulin pen needle (B-D ULTRAFINE III SHORT [...] INSULIN TWICE DAILY, Disp: 200each, Rfl: 3 lisinopril 20 MG tablet, Take 20 mg by mouth, Disp: , Rfl: loratadine (Claritin) 10 MG tablet, Take 10 mg by mouth in the morning., Disp: , Rfl: methocarbamol (Robaxin) 500 MG tablet, Take 500 mg by mouth every 8 (eight) hours if needed, Disp: , Rfl: pantoprazole (ProtoNix) 40 MG EC tablet, Take 40 mg by mouth in the morning. Take before meals., Disp: , Rfl: potassium chloride CR (Klor-Con M20) 20 MEQ ER tablet, Take 1 tablet (20 mEq) by mouth Daily, Disp:90 tablet, Rfl: 0 Social History: Social History Socioeconomic History Marital status: Spouse name: Not on file Number of children: Not on file Years of education: Not on file Highest education level: Not on file Occupational History Not on file Tobacco Use Smoking status: Former Types: Cigarettes Smokeless tobacco: Never Vaping Use Vaping status: Never Used Substance and Sexual Activity Alcohol use: Never Drug use: Defer Sexual activity: Defer Partners: Decline to Answer Other Topics Concern Not on file Social History Narrative Not on file Social Drivers of Health Financial Resource Strain: Low Risk (02/18/2025) Received from [facility] Overall Financial Resource Strain (CARDIA) Difficulty of Paying Living Expenses: Not hard at all Food Insecurity: No Food Insecurity (02/18/2025) Received from [facility] Hunger Vital Sign Within the past 12 months, you worried that your food would run out before you got the money to buymore.: Never true Ran Out of Food in the Last Year: Not on file Transportation Needs: No Transportation Needs (02/18/2025) Received from [facility] Transportation In the past 12 months, has lack of transportation kept you from medical appointments or from getting medications?: No Lack of Transportation (Non-Medical): Not on file Physical Activity: Inactive (06/22/2024) Received from [facility] Exercise Vital Sign Days of Exercise per Week: 0 days Minutes of Exercise per Session: 0 min Stress: Stress Concern Present (12/03/2023) Received from [facility] [place] of Occupational Health - Occupational Stress Questionnaire Feeling of Stress : To some extent Social Connections: Moderately Isolated (12/03/2023) Received from [facility] Social Connection and Isolation Panel [NHANES] Frequency of Communication with Friends and Family: More than three times a week Frequency of Social Gatherings with Friends and Family: More than three times a week Attends Bahai Services: Never Active Member of Clubs or Organizations: No Attends Club or Organization Meetings: Never Marital Status: Intimate Partner Violence: Not At Risk (04/26/2025) Received from [facility] Humiliation, Afraid, Rape, and Kick questionnaire Fear of Current or Ex-Partner: No Emotionally Abused: No Physically Abused: No Sexually Abused: No Housing Stability: Low Risk (02/18/2025) Received from [facility] Housing Stability Vital Sign In the last 12 months, was there a time when you were not able to pay the mortgage or rent on time?: No Number of Times Moved in the Last Year: Not on file At any time in the past 12 months, were you homeless or living in a retirement (including now)?: No ROS: Gastrointestinal: denies abdominal pain, ulcers, or changes in appetite or bowel habits Musculoskeletal: positive hx of arthritis, loss of strength, with positive history of back pain Cardiovascular: denies CP, palpitations, irregular rhythms. Positive history of CHF and aortic valve replacement with blood thinner and OK in the past OBJECTIVE LE EXAM: DERM: Elongated thick yellow [...] positive edema to left foot. NEURO: 5.07 [place] monofilament test diminished to digits and forefoot bilaterally 125Hz tuning fork diminished to 1st MPJ bilaterally ORTHO: Positive pain on palpation to toenails of the left 1,2,3,4,5 toes and right 1,2,3,4,5 toes Flexion deformities digits 2 through 5 bilateral positive pain on palpation of right retrocalcaneal bursa and Achilles with negative palpable [place] ASSESSMENT 1. Achilles tendinitis, right leg 2. Contracture of right ankle 3. Diabetes mellitus due to underlying condition with diabetic polyneuropathy, unspecified whether terminal carman insulin use (HCC) 4. Pain due to onychomycosis of toenails of both feet PLAN Pt to continue with ice to posterior right achilles region. Pt to take nsaids as needed PRN pain Patient returned to walking boot Discussed conservative and surgical treatment options for patient today including postoperative time frame and surgical procedure in detail. Patient may continue with conservative treatments including [id number] anti- inflammatories and other treatments suggested today. Patient may want to be s cheduled for surgical intervention in the near future. Patient have right heel Tenex procedure withAchilles tenotomy under ultrasonic guidance and [place] for postoperative pain and sees Dr. Jayme magdalenofor cardiology and Dr. Bell for PCP Debride nails in length and thickness digits 1 through 10 Patient educated today on proper diabetic foot care including monitoring feet daily for any signs of infection openings in the skin or irregularities to both feet. Patient had a diabetic neurologicalexam today to both their feet and discussed proper shoe gear Alexis Gilmore DPM documented in this encounterBarton County Memorial [id number] NoteUT Cardiology - [facility] Subjective Diann Patel is a 69 y.o. year old female patient being seen for 3 mo follow up AoV stenosis s/p TAVR in 2021, PAF, PAD, CAD, and carotid artery stenosis. Had carotid US in February 2025 after last apt. Says last week she had 1 episode of flutters , lasting less than 1 minute. She is not taking Eliquis, as she is on generic Pradaxa. Denies bleeding with this. She needs cleared to hold Pradaxa prior to EGD and colonoscopy, scheduled for 06/09/2025. Patient Active Problem List Diagnosis Nonrheumatic aortic valve stenosis Coronary artery disease involving [place] coronary artery of [place] heart with angina pectoris PAF (paroxysmal atrial fibrillation) (CMS/HCC) Essential hypertension PAD (peripheral artery disease) Numbness of left lower extremity Acute asthmatic bronchitis Asthma without status asthmaticus Arteriosclerosis of arterial coronary artery bypass graft [...] Type 2 diabetes mellitus with hyperglycemia (CMS/HCC) Vitreous hemorrhage of right eye (CMS/HCC) Mechanical complication of internal orthopedic device, implant or graft Pseudophakia New onset of congestive heart failure (CMS/HCC) NSTEMI (non-ST elevated myocardial infarction) (CMS/HCC) Coronary artery disease involving [place] heart Acute anemia Dry eyes Epiretinal membrane (ERM) of both eyes Carotid stenosis PCO (posterior capsular opacification), bilateral Weakness 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 Benign essential hypertension Cardiovascular disease Peripheral vascular disease HTN (hypertension) Mixed hyperlipidemia Osteomyelitis (CMS/HCC) Aortic stenosis, severe Paroxysmal atrial fibrillation (CMS/HCC) Chronic anticoagulation History of colon polyps Iron deficiency anemia Screening for colon cancer Upper abdominal pain Family History Problem Relation Name Age of Onset Diabetes Mother Cancer Mother Heart disease Father Alcohol abuse Brother Diabetes Brother Social History Tobacco Use Smoking status: Former Types: Cigarettes Smokeless tobacco: Never Vaping Use Vaping status: Never Used Substance Use Topics Alcohol use: Never Drug use: Never HPI Diann is seen in follow up. She is [...] angioplasty. She was admitted 02/08/2024 to the [facility] with ?viral infection, weakness, low blood pressure, diarrhea and amlodipine, carvedilol, hydralazine, insulin and spironolactone were stopped. I resumed medications for hypertension on 05/10/2024. On 02/18/2025 she was admitted to [facility] with decompensated diastolic heart failure, anemia and type II NSTEMI. Cardiac catheterization did not show targets for revascula (more content not included)...[facility]07-16-2025 History of Present illness Narrative* Dale Cronin MD - 05/25/2025 11:00 AM EDT Images from the original note were not included. Diann Patel 1955 Diann Patel is a 69 y.o. female presents with chief complaint of Consult (Colonoscopy- Hx of colon polyps- Last colonoscopy was 2020 Jeannie/Regino Merrill at [facility] and she wants to have pt get an upper and lower scope done but in [place]. Pt would rather have this done here.) HPI: The patient is an 69-year-old female who presents to discuss EGD and colonoscopy. Patient has a history of anemia. She was in hospital in [place] about 3 months ago and required blood transfusions. The patient also has upper abdominal pain. She is able to eat. She denies vomiting. The patient had a c olonoscopy in 2020. She had a colon polyp at that time. She denies family history for colon cancer.She is moving her bowels. She denies current blood in his stool. She has some occasional loose stools. She is on Xarelto for cardiac reasons. She has had previous TAVR as well as coronary stents in the past. SUBJECTIVE: MEDICATIONS: ALLERGIES Current Outpatient Medications Medication Instructions amLODIPine (Norvasc) 10 MG tablet Apixaban Starter Pack 5 mg, 2 times daily atorvastatin (LIPITOR) 80 mg, Oral, Daily carvedilol (Coreg) 12.5 MG tablet TAKE 1 TABLET BY MOUTH TWICE DAILY WITH BREAKFAST AND WITH EVENING MEAL citalopram (CELEXA) 20 mg, Oral, Daily Continuous Glucose Telephone Diaphragm Assembler (Dexcom G7 Telephone Diaphragm Assembler) device 1 Device, Does not apply, Yearly Continuous Glucose Sensor (Dexcom G7 Sensor) misc 1 UNITS EVERY 10 (TEN) DAYS dabigatran etexilate (PRADAXA) 150 mg, 2 times daily diclofenac sodium 1 % gel APPLY 4 GRAMS TO ABDOMINAL WALL FOUR TIMES DAILY NEEDED dicyclomine (BENTYL) 10 mg, Oral, 4 times daily ferrous sulfate 325 mg, Every other day furosemide (LASIX) 40 mg, Oral, Daily gabapentin (NEURONTIN) 300 mg, Oral, 2 times daily hydrALAZINE (Apresoline) 100 MG tablet insulin glargine (LANTUS) 40 Units, Subcutaneous, Nightly insulin pen needle (B-D ULTRAFINE III SHORT PEN) 31G X 8 mm misc USE DIRECTED EVERY DAY WITH BASAGLAR Insulin Syringe 31G X 5/16 1 ML misc USE DIRECTED TO ADMINISTER INSULIN TWICE DAILY lisinopril 20 mg loratadine (CLARITIN) 10 mg, Daily RT methocarbamol (ROBAXIN) 500 mg, Every 8 hours PRN NovoLIN R 22 Units, Subcutaneous, 3 times daily with meals, Pt has sliding scale so disregard sig pantoprazole (PROTONIX) 40 mg, Daily before breakfast potassium chloride CR (Klor-Con M20) 20 MEQ ER tablet 20 mEq, Oral, Daily Allergies Allergen Reactions Penicillins Hives and Unknown childhood-swelling PAST MEDICAL HISTORY: SOCIAL HISTORY SURGICAL HISTORY: Past Medical History: Diagnosis Date A-fib ([facility]) 2022 with RVR Anxiety Aortic stenosis 06/2022 Carotid artery disease Cataract CHF (congestive heart failure) ([facility]) 06/2022 Colon polyp 2016 Diverticulitis DM (diabetes mellitus) ([facility]) HLD (hyperlipidemia) HTN (hypertension) OK (myocardial infarction) ([facility]) NSTEMI, initial episode of care ([facility]) 2022 Retinal hemorrhage Social History Tobacco Use Smoking status: Former Types: Cigarettes Smokeless tobacco: Never Vaping Use Vaping status: Never Used Substance Use Topics Alcohol use: Never Drug use: Defer Past Surgical History: Procedure Laterality Date ANGIOPLASTY 01/13/2023 APPENDECTOMY CARDIAC CATHETERIZATION 2009 with stent; Disease: Myocardial Infarction CATARACT EXTRACTION CHOLECYSTECTOMY COLECTOMY 1994 COLONOSCOPY 04/2006 COLONOSCOPY W/ [...] TONSILLECTOMY TOTAL ABDOMINAL HYSTERECTOMY W/ BILATERAL SALPINGOOPHORECTOMY REVIEW OF SYMPTOMS: Review of Systems Constitutional: Negative for fever. Respiratory: Negative for shortness of breath. Cardiovascular: Negative for chest pain. Gastrointestinal: Positive for abdominal pain and diarrhea. Negative for blood in stool. Genitourinary: Negative for difficulty urinating. Neurological: Negative for syncope. OBJECTIVE: Visit Vitals BP 120/62 Ht 5' 2 Wt 172 lb BMI 31.46 kg/m Smoking Status Former BSA 1.85 m Physical Exam Constitutional: General: She is not in acute distress. HENT: Head: Atraumatic. Eyes: General: No scleral icterus. Cardiovascular: Rate and Rhythm: Normal rate and regular rhythm. Pulmonary: Breath sounds: Normal breath sounds. Abdominal: General: There is no distension. Palpations: Abdomen is soft. Comments: Upper abdominal tenderness. Skin: General: Skin is warm and dry. Neurological: Mental Status: She is alert. ASSESSMENT AND PLAN: Assessment/Plan Diagnoses and all orders for this visit: Iron deficiency anemia, unspecified iron deficiency anemia type History of colon polyps Upper abdominal pain Screening for colon cancer - Ambulatory referral to General Surgery Chronic anticoagulation Plan will be to perform esophagogastroduodenoscopy and colonoscopy. The procedures, benefits, risksincluding risks of bleeding, perforation, incomplete colonoscopy were discussed. We will contact her trouble dispatcher for approval to hold the Xarelto prior to the procedure. If the colonoscopy is normal, patient will not require another screening colonoscopy. documented in this encounterBarton County Memorial [id number] NoteAre you on Oxygen? Yes or No If yes, notify Dr. Light If yes, when do you wear it? All day, only when short of breath, only at night. How many liters are you on? [place] Sleepiness Scale Please rate the following as to how likely the patient would be to dose off or fall asleep for each of the situations Never = 0 Slight chance = 1 Moderate Chance = 2 High Chance = 3 Sitting and Reading... 2 Watching TV...3 Sitting inactive in a public place (theater, meeting) ...0 As a passenger in a car for an hour without a break... 0 Lying down in the afternoon to rest...3 Sitting and talking to someone... 0 Sitting quietly after lunch (without alcohol)... 2 In a car, while stopped for a few minutes in traffic... 0 Total score...10 Please check the symptoms/complaints of the patient Please answer (Y)es or (N)o Snoring/Loud Snoring... Witnessed Apneas... Excessive daytime sleepiness... Waking gasping/choking... Morning Headaches... Complaints of restless legs... Wakes with sour taste... Difficulty following directions... Confusion/Forgetfulness... Sleep walking/talks in your sleep... Grinds teeth... Difficulty staying asleep ... Difficulty initiating sleep... Acting out your dreams... Difficulty ambulating... Incontinence...[facility]06-17-2025 [facility] New Patient Visit - History & Physical CHIEF COMPLAINT Chief Complaint Patient presents with New Patient Anemia HISTORY OF PRESENT ILLNESS: Diann Patel is a 69 y.o. female with prior history of HFrEF, CAD s/p CABG x4 in 2012, aortic valve stenosis status post TAVR in 2021 with a Medtronic Evolut FX , carotid stenosis, Hypertension, asthma, DM2, PAD, PVD, and atrial fibrillation who was recently started on Eliquis 5 mg twice daily, presenting as a new patient for anemia, referred by cardiology Recently admitted to [facility] this past February 2025 w/ decompensated diastolic heart failure type II and NSTEMI. Cardiac catheterization did not show targets for revascularization. Hgb was found to be 7.3. She underwent investigation of the anemia and her Eliquis was stopped, clopidogrel continued. She underwent blood transfusion. She also underwent diuresis during the hospitalization. Hgb was 10.4 on 02/21/25. Ferritin was WNL. After cardiology outpatient FU her clopidogrel was stopped and she was started on Xarelto which she remains on today. She was also started on pantoprazole 40 mg once daily and referred here for further investigation of her anemia. Repeat CBC is pending. Today, she denies any other past history of anemia. Denies any overt blood loss including no melena, hematochezia or hematemesis. Has been on ferrous sulfate one tablet every other day and does endorse dark BMs. She only takes pantoprazole PRN for bouts of nausea/indigestion. Denies over reflux symptoms. She has an intermittent abdominal pain in her right side, that is described as a big knot . Pain worse w/ BMs. Stretching helps it. BMs occur daily, has random episodes of diarrhea every month or so. Denies constipation. Past GI history includes a partial colectomy ~ 32 years ago. Endorse fatigue. Denies weakness, feeling lightheaded, dizziness, chest pain, palpitations or SOB. No NSAID use. Denies any past EGD. Patient underwent colonoscopy on 07/12/2021 for high-risk colon cancer surveillance due to personal history of colonic polyps. One semi-pedunculated polyp in the sigmoid colon was removed with a hot snare and pathology confirmed tubular adenoma. Diverticulosis was noted in the sigmoid colon. Rectal exam and retroflexion views were normal. Recommended repeat colonoscopy in 5 years. No family history of GI disorders including malignancy. Mother has a h/o anemia. PREVIOUS LABS/IMAGING/ENDOSCOPY: CLN 07/12/2021: [facility] Attending MD: Sae Paz MD Procedure: Colonoscopy Indications: High risk colon cancer surveillance: Personal history of colonic polyps Findings: The perianal and digital rectal examinations were normal. A polyp was found in the sigmoid colon. The polyp was semi-pedunculated. The polyp was removed with a hot snare. Resection and retrieval were complete. Verification of patient identification for the specimen was done by the physician, nurse and geology technician using the patient's name, date and medical record number. Estimated blood loss: none. Many small-mouthed diverticula were found in the sigmoid colon. The retroflexed view of the distal rectum and anal verge was normal and showed no anal or rectal abnormalities. Impression: - One polyp in the sigmoid colon, removed with a hot snare. Resected and retrieved. - Diverticulosis in the sigmoid colon. - The distal rectum and anal verge are normal on retroflexion view. Recommendation: - Discharge patient to home. - Repeat colonoscopy in 5 years per protocol. - Return to my office in 2 weeks. Final Pathologic Diagnosis Sigmoid colon polyp, biopsy: Tubular adenoma. LABORATORY DATA: CBC: Lab Results Component Value Date WBC 9.57 02/21/2025 RBC 3.81 02/21/2025 HGB 10.4 (L) 02/21/2025 HCT 34.1 (L) 02/21/2025 MCV 89.5 02/21/2025 RDW 15.3 (H) 02/21/2025 PLT 207 02/21/2025 PT/INR Lab Results Component Value Date PT 15.7 (H) 12/03/2023 INR 1.24 (H) 12/03/2023 BMP: Lab Results Component Value Date NA 136 02/22/2025 K 4.1 02/22/2025 CL 98 02/22/2025 BUN 45 (H) 02/22/2025 CREATININE 1.06 02/22/2025 EGFR 56.5 (L) 02/22/2025 GLU 212 (H) 07/02/2022 LFTs: Lab Results Component Value Date BILITOT 0.4 02/18/2025 BILIDIR 0.1 02/18/2025 ALKPHOS 66 02/18/2025 AST 21 02/18/2025 ALT 12 02/18/2025 ALBUMIN 3.7 02/18/2025 PROT 6.4 02/18/2025 Celiac Serology: No results found for: TTGA , IGA B12/Folate/Iron studies: Lab Results Component Value Date [id number] 553 02/18/2025 FOLATE 35.0 02/18/2025 IRON 31 (L) 02/18/2025 TIBC 367 02/18/2025 UIBC 336.0 02/18/2025 IRONSAT 8 (L) 02/18/2025 FERRITIN 18.0 02/18/2025 IBD Biomarkers No results found for: CRP No results found for: SEDRATE Viral Hepatitis No results found for: HEPAIGM , HAV , HEPBSAG , HEPBSAB , HEPBEAB , HEPBIGM , HEPBCAB , HEPBCOREAB , HBVNAT , HCVSC (more content not included)...[facility]06-05-2025 History of Present illness Narrative* Johnna Cedeño CREDIT ADMINISTRATION SPECIALIST - 04/14/2025 1:30 PM EDT Images from the original note were not included. Subjective : Chief Complaint: Diann Patel is an 69 y.o. female here for an annual wellness visit. I have reviewed and reconciled the history and medication list with the patient today. Current Outpatient Medications Medication Sig Dispense Refill dabigatran etexilate (Pradaxa) 150 MG capsule Take 150 mg by mouth in the morning and 150 mg beforebedtime. Do not crush or chew. amLODIPine (Norvasc) 10 MG tablet Apixaban Starter Pack 5 MG tablet therapy pack Take 5 mg by mouth in the morning and 5 mg in the evening. atorvastatin (Lipitor) 80 MG tablet TAKE 1 TABLET BY MOUTH EVERY DAY 100 tablet 3 carvedilol (Coreg) 12.5 MG tablet TAKE 1 TABLET BY MOUTH TWICE DAILY WITH BREAKFAST AND WITH EVENING MEAL citalopram (CeleXA) 20 MG tablet Take 1 tablet (20 mg) by mouth Daily 100 tablet 2 clopidogrel (Plavix) 75 MG tablet Continuous Glucose Telephone Diaphragm Assembler (Dexcom G7 Telephone Diaphragm Assembler) device 1 Device yearly 1 each 0 Continuous Glucose Sensor (Dexcom G7 Sensor) misc 1 UNITS EVERY 10 (TEN) DAYS 9 each 3 diclofenac sodium 1 % gel APPLY 4 GRAMS TO ABDOMINAL WALL FOUR TIMES DAILY NEEDED dicyclomine (Bentyl) 10 MG capsule Take 1 capsule (10 mg) by mouth in the morning and 1 capsule (10mg) at noon and 1 capsule (10 mg) in the evening and 1 capsule (10 mg) before bedtime. 200 capsule 2 ferrous sulfate 325 (65 Fe) MG tablet Take 325 mg by mouth every other day furosemide (Lasix) 40 MG tablet TAKE 1 TABLET BY MOUTH EVERY DAY (Patient taking differently: Take 40 mg by mouth in the morning and 40 mg before bedtime.) 90 tablet 0 gabapentin (Neurontin) 300 MG capsule Take 1 capsule (300 mg) by mouth in the morning and 1 capsule(300 mg) before bedtime. 180 capsule 3 hydrALAZINE (Apresoline) 100 MG tablet insulin glargine (Lantus) 100 UNIT/ML pen Inject 40 Units under the skin at bedtime 36 mL 3 insulin pen needle (B-D ULTRAFINE III SHORT [...] ADMINISTER INSULIN TWICE DAILY 200 each 3 lisinopril 20 MG tablet Take 20 mg by mouth loratadine (Claritin) 10 MG tablet Take 10 mg by mouth in the morning. pantoprazole (ProtoNix) 40 MG EC tablet Take 40 mg by mouth in the morning. Take before meals. potassium chloride CR (Klor-Con M20) 20 MEQ ER tablet Take 1 tablet (20 mEq) by mouth Daily 90 tablet 0 No current facility-administered medications for this visit. Review of Systems Constitutional: Negative. HENT: Negative. Eyes: Negative. Respiratory: Negative. Cardiovascular: Negative. Gastrointestinal: Negative. Genitourinary: Negative. Musculoskeletal: Negative. Skin: Negative. Neurological: Negative. Psychiatric/Behavioral: Negative. Endocrine: Negative. List of current healthcare providers: Patient Care Team: Champ Bell MD as PCP - General (Internal Medicine) Champ Bell MD as PCP - ACO Reach Lesa Browne LPN Medicare Annual Visit Over the past 2 weeks, how often have you been bothered by any of the following problems? Little interest or pleasure in doing things: Not at all Feeling down, depressed, or hopeless: Not at all Patient Health Questionnaire-2 Score: 0 Steinberg Fall Risk History of Falling, Immediate or Within 3 Months: No Health Risk Assessment Form Do you need help eating, bathing, using the toilet, dressing, or getting around your home?: No Can you prepare your own meals?: Yes Can you do your own housework without help?: Yes Can you shop for groceries or clothes without help?: Yes Do you exercise for about 20 minutes 3 or more days a week?: Yes How confident are you that you can control and manage most of your health problems?: Very confident Can you mange your money, credit cards and accounts, pay bills and taxes?: Yes Cognitive Screening Three Word Registration: Marvin Scott Chair Clock Drawing: Normal Clock - 2 Three Word Recall: All 3 words correct - 3 Total Score (0-5 Points): 5 Pain Assessment Pain Score: 3 Advance Care Planning Do you have a living will?: No Do you have a medical power of business attorney?: No Objective : BP 122/62 Pulse 69 Resp 16 Ht 5' 2 Wt 176 lb SpO2 95% BMI 32.19 kg/m No results found. Physical Exam Vitals reviewed. Constitutional: Appearance: Normal appearance. HENT: Head: Normocephalic. Nose: Nose normal. Mouth/Throat: Mouth: Mucous membranes are moist. Pharynx: Oropharynx is clear. Eyes: Conjunctiva/sclera: Conjunctivae normal. Cardiovascular: Rate and Rhythm: Normal rate. Heart sounds: Normal heart sounds. Pulmonary: Effort: Pulmonary effort is normal. Breath sounds: Normal breath sounds. Abdominal: General: Bowel sounds are normal. Palpations: Abdomen is soft. Musculoskeletal: General: Normal range of motion. Cervical back: Neck supple. Skin: General: Skin is warm and dry. Neurological: General: No focal deficit present. Mental Status: She is alert and oriented to person, place, and time. Psychiatric: Mood and Affect: Mood normal. Behavior: Behavior normal. Thought Content: Thought content normal. Judgment: Judgment normal. Assessment/Plan : The following health maintenance schedule was reviewed with the patient and provided in printed form in the after visit summary: Health Maintenance Topic Date Due Pneumococcal Vaccine: 65+ Years (2 of 2 - PCV) 10/06/2021 Diabetes: Urine Protein Screening 02/11/2025 Diabetes: Hemoglobin A1C 03/29/2025 Diabetes: Retinopathy Screening 02/15/2026 Mammogram 03/03/2026 Influenza Vaccine Completed Colorectal Cancer Screening Discontinued Advance Care Planning Not interested in any. Discussed importance. Orders Placed This Encounter Procedures DEXA bone density Standing Status: Future Expected Date: 04/14/2025 Expiration Date: 04/14/2026 Reason for exam:: screening for osteoporosis CBC Standing Status: Future Number of Occurrences: 1 Expected Date: 04/14/2025 Expiration Date: 04/14/2026 Print requisition?: No Comprehensive metabolic panel Standing Status: Future Number of Occurrences: 1 Expected Date: 04/14/2025 Expiration Date: 04/14/2026 Print requisition?: No Lipid panel Standing Status: Future Number of Occurrences: 1 Expected Date: 04/14/2025 Expiration Date: 04/14/2026 Print requisition?: No TSH Standing Status: Future Number of Occurrences: 1 Expected Date: 04/14/2025 Expiration Date: 04/14/2026 Print requisition?: No Microalbumin / creatinine, urine ratio Standing Status: Future Number of Occurrences: 1 Expected Date: 04/14/2025 Expiration Date: 04/14/2026 Print requisition?: No 1. 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 No changes in treatment are suggested at this time. - Lipid panel; Future - Lipid panel 2. Benign essential hypertension (CMS/HCC) Patient's blood pressure is currently well controlled. Continue with current medications and I willcontinue to monitor. Goal BP remains less than 130/80. - CBC; Future - Comprehensive metabolic panel; Future - CBC - Comprehensive metabolic panel - potassium chloride CR (Klor-Con M20) 20 MEQ ER tablet; Take 1 tablet (20 mEq) by mouth Daily Dispense: 90 tablet; Refill: 0 3. Diverticulosis of colon This is a chronic medical condition that is stable since last assessment. No changes in treatment are suggested at this time. 4. Generalized anxiety disorder (CMS/HCC) Take medication as directed. Verbalizes understanding of the need to be seen in the ER for excessive stress, elevated blood pressure or palpitations. Advised on relaxation methods to decrease anxietyand depression. Pt offers understanding of treatment plan. 5. Irritable bowel syndrome with both constipation and diarrhea This is a chronic medical condition that is stable since last assessment. No changes in treatment are suggested at this time. - dicyclomine (Bentyl) 10 MG capsule; Take 1 capsule (10 mg) by mouth in the morning and 1 capsule (10 mg) at noon and 1 capsule (10 mg) in the evening and 1 capsule (10 mg) before bedtime. Dispense:200 capsule; Refill: 2 6. Mixed hyperlipidemia (CMS/HCC) This is a chronic medical condition that is stable since last assessment. No changes in treatment are suggested at this time. - Lipid panel; Future - Lipid panel 7. Paroxysmal atrial fibrillation (CMS/HCC) This is a chronic medical condition that is stable since last assessment. No changes in treatment are suggested at this time. 8. Peripheral vascular disease ([facility]/HCC) This is a chronic medical condition that is stable since last assessment. No changes in treatment are suggested at this time. 9. Polyneuropathy due to type 2 diabetes mellitus (CMS/HCC) Discussed today the importance of proper diabetic control. Discussed possible complications of diabetes, including loss of vision, renal failure, increased risk of heart attacks and strokes, blood vessel and/or nerve damage. Reviewed the recommended changes to reduce your blood sugars and minimize the risk of these complications. Reviewed diabetic goals, including keeping A1C <7.0% and blood pressure < 130/70. The plan for achieving these goals is adherence to medications, maintaining a healthy and balanced diet, and regular activity as discussed during today's visit. Discussed current barriers to achieving these goals. Discussed dietary goals. Discussed decreasing carbohydrates and simple sugar intake. Reviewed portion control with the patient. If the patient still has questions onthis, a referral to a Dietitian can be arranged. Reviewed medications that aid in diabetic control.Discussed proper dosing and educated the patient on possible side effects and complications. The patient verbalized understanding of these instructions. 10. Poorly controlled diabetes mellitus (CMS/HCC) Discussed today the importance of proper diabetic control. Discussed possible complications of diabetes, including loss of vision, renal failure, increased risk of heart attacks and strokes, blood vessel and/or nerve damage. Reviewed the recommended changes to reduce your blood sugars and minimize the risk of these complications. Reviewed diabetic goals, including keeping A1C <7.0% and blood pressure < 130/70. The plan for achieving these goals is adherence to medications, maintaining a healthy and balanced diet, and regular activity as discussed during today's visit. Discussed current barriers to achieving these goals. Discussed dietary goals. Discussed decreasing carbohydrates and simple sugar intake. Reviewed portion control with the patient. If the patient still has questions onthis, a referral to a Dietitian can be arranged. Reviewed medications that aid in diabetic control.Discussed proper dosing and educated the patient on possible side effects and complications. The patient verbalized understanding of these instructions. - Microalbumin / creatinine, urine ratio; Future - Microalbumin / creatinine, urine ratio 11. 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 associated withtype 2 diabetes mellitus ([facility]/HCC) This is a chronic medical condition that is stable since last assessment. No changes in treatment are suggested at this time. 12. Type 2 diabetes mellitus with hyperglycemia, with long-term current use of insulin ([facility]) Discussed today the importance of proper diabetic control. Discussed possible complications of diabetes, including loss of vision, renal failure, increased risk of heart attacks and strokes, blood vessel and/or nerve damage. Reviewed the recommended changes to reduce your blood sugars and minimize the risk of these complications. Reviewed diabetic goals, including keeping A1C <7.0% and blood pressure < 130/70. The plan for achieving these goals is adherence to medications, maintaining a healthy and balanced diet, and regular activity as discussed during today's visit. Discussed current barriers to achieving these goals. Discussed dietary goals. Discussed decreasing carbohydrates and simple sugar intake. Reviewed portion control with the patient. If the patient still has questions onthis, a referral to a Dietitian can be arranged. Reviewed medications that aid in diabetic control.Discussed proper dosing and educated the patient on possible side effects and complications. The patient verbalized understanding of these instructions. - CBC; Future - Comprehensive metabolic panel; Future - CBC - Comprehensive metabolic panel - POCT glycosylated hemoglobin (Hb A1C) docked device 13. Osteopenia, unspecified location This is a chronic medical condition that is stable since last assessment. No changes in treatment are suggested at this time. 14. Asthma without status asthmaticus without complication, unspecified asthma severity, unspecified whether persistent ([facility]) This is a chronic medical condition that is stable since last assessment. No changes in treatment are suggested at this time. 15. Arteriosclerosis of arterial coronary artery bypass graft ([facility]) This is a chronic medical condition that is stable since last assessment. No changes in treatment are suggested at this time. 16. Estrogen deficiency Await bone density - DEXA bone density; Future 17. Chronic migraine with aura without status migrainosus, not intractable ([facility]) This is a chronic medical condition that is stable since last assessment. No changes in treatment are suggested at this time. 18. Overweight Discussed goal of BMI < 30. Advised on weight loss options. Encouraged diet and exercise. Discussed with patient appropriate lifestyle modification changes necessary for weight management, heart healthy eating and overall health promotion. Discussed minimizing high carb, high sugar, high sodium,portion control, and processed foods while making healthy choice replacements. Additionally discussed recommendations of 30 minutes of aerobic exercise at least 5 days per week, that includes, walking, and chair exercises. . Instructed importance of drinking adequate water consumption (if not on fluid restriction) with minimal sugar and caffiene. - TSH; Future - TSH 19. 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 ([facility]/HCC) This is a chronic medical condition that is stable since last assessment. No changes in treatment are suggested at this time. 20. 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, with long-term current use of insulin, unspecified retinopathy severity ([facility]/HCC) This is a chronic medical condition that is stable since last assessment. No changes in treatment are suggested at this time. 21. Bilateral carotid artery stenosis This is a chronic medical condition that is stable since last assessment. No changes in treatment are suggested at this time. 22. New onset of congestive heart failure ([facility]) This is a chronic medical condition that is stable since last assessment. No changes in treatment are suggested at this time. 23. NSTEMI (non-ST elevated myocardial infarction) ([facility]) This is a chronic medical condition that is stable since last assessment. No changes in treatment are suggested at this time. 24. Screening for thyroid disorder Await lab - TSH; Future - TSH 25. Medicare annual wellness visit, subsequent (Primary) Reviewed all relevant preventative screenings with the patient in detail. Medicare Wellness form completed and will be scanned into patient's chart. All needed testing was ordered. Will continue withyearly Medicare Wellness exams. 26. Routine general medical examination at [facility] facility Reviewed all relevant preventative screenings with the patient in detail. Medicare Wellness form completed and will be scanned into patient's chart. All needed testing was ordered. Will continue withyearly Medicare Wellness exams. 27. Screening for colon cancer Await colonoscopy - Ambulatory referral to General Surgery; Future Electronically signed by Johnna Cedeño NP on April 14, 2025 documented in this encounterBarton County Memorial [id number] History of Present illness Narrative* Alexis Gilmore DPM - 03/30/2025 2:30 PM EDT Patient: Diann Patel : 1955 PCP: Champ Bell MD SUBJECTIVE Pt presents today for follow up of right heel spur with achilles tendonitis. Pt has had previous treatment of 2nd steroid injection, nsaids, and cannot wear walking boot with improvement improvement.Pt states current pain on a 1-10 scale is a 5 Pt presents to day for follow up tx. Patient presents today with a CC of elongated, thick nails. Pt states nails have been elongated and thick for many years and cause pain with ambulation in shoegear. Pt has tried previous treatment with minimal relief. Pt presents today for nail care and treatment. Patient is DM2 Patient is DM2 with hx of PVD and [facility] vascular intervention in the past. Allergies: Allergies Allergen Reactions Penicillins Hives and Unknown childhood-swelling Past Medical History: Past Medical History: Diagnosis Date A-fib ([facility]) 2022 with RVR Anxiety Aortic stenosis 06/2022 Carotid artery disease ([facility]) Cataract CHF (congestive heart failure) ([facility]) 06/2022 Colon polyp 2016 Diverticulitis DM (diabetes mellitus) ([facility]) HLD (hyperlipidemia) ([facility]) HTN (hypertension) ([facility]) OK (myocardial infarction) ([facility]) NSTEMI, initial episode of care ([facility]) 2022 Retinal hemorrhage Medications: Current Outpatient Medications: amLODIPine (Norvasc) 10 MG tablet, , Disp: , Rfl: atorvastatin (Lipitor) 80 MG [...] MG tablet, , Disp: , Rfl: Continuous Glucose Telephone Diaphragm Assembler (Dexcom G7 Telephone Diaphragm Assembler) device, 1 Device yearly, Disp: 1 each, Rfl: 0 Continuous Glucose Sensor (Dexcom G7 Sensor) misc, 1 UNITS EVERY 10 (TEN) DAYS, Disp: 9 each, Rfl: 3 dicyclomine (Bentyl) 10 MG capsule, Take 10 mg by mouth in the morning and 10 mg at noon and 10 mg in the evening and 10 mg before bedtime., Disp: , Rfl: ferrous sulfate 325 (65 Fe) MG tablet, Take 325 mg by mouth every other day, Disp: , Rfl: furosemide (Lasix) 40 MG tablet, TAKE 1 TABLET BY MOUTH EVERY DAY (Patient taking differently: Take40 mg by mouth in the morning and 40 mg before bedtime.), Disp: 90 tablet, Rfl: 0 gabapentin (Neurontin) 300 MG capsule, Take 1 capsule (300 mg) by mouth in the morning and 1 capsule (300 mg) before bedtime., Disp: 180 capsule, Rfl: 3 hydrALAZINE (Apresoline) 25 MG tablet, , Disp: , Rfl: hydrALAZINE (Apresoline) 50 MG tablet, Take 75 mg by mouth in the morning and 75 mg before bedtime., Disp: , Rfl: insulin glargine (Lantus) 100 UNIT/ML pen, Inject 40 Units under the skin at bedtime, Disp: 36 mL, Rfl: 3 insulin pen needle (B-D ULTRAFINE III SHORT [...] INSULIN TWICE DAILY, Disp: 200each, Rfl: 3 lisinopril 20 MG tablet, Take 20 mg by mouth, Disp: , Rfl: potassium chloride CR (Klor-Con M20) 20 MEQ ER tablet, Take 1 tablet (20 mEq) by mouth Daily, Disp:90 tablet, Rfl: 0 Social History: Social History Socioeconomic History Marital status: Spouse name: Not on file Number of children: Not on file Years of education: Not on file Highest education level: Not on file Occupational History Not on file Tobacco Use Smoking status: Former Types: Cigarettes Smokeless tobacco: Never Vaping Use Vaping status: Never Used Substance and Sexual Activity Alcohol use: Never Drug use: Defer Sexual activity: Defer Partners: Decline to Answer Other Topics Concern Not on file Social History Narrative Not on file Social Drivers of Health Financial Resource Strain: Low Risk (02/18/2025) Received from [facility] Overall Financial Resource Strain (CARDIA) Difficulty of Paying Living Expenses: Not hard at all Food Insecurity: No Food Insecurity (02/18/2025) Received from [facility] Hunger Vital Sign Within the past 12 months, you worried that your food would run out before you got the money to buymore.: Never true Ran Out of Food in the Last Year: Not on file Transportation Needs: No Transportation Needs (02/18/2025) Received from [facility] Transportation In the past 12 months, has lack of transportation kept you from medical appointments or from getting medications?: No Lack of Transportation (Non-Medical): Not on file Physical Activity: Inactive (06/22/2024) Received from [facility] Exercise Vital Sign Days of Exercise per Week: 0 days Minutes of Exercise per Session: 0 min Stress: Stress Concern Present (12/03/2023) Received from [facility] [place] [facility] [employer] [facility] - Occupational Stress Questionnaire Feeling of Stress : To some extent Social Connections: Moderately Isolated (12/03/2023) Received from [facility] Social Connection and Isolation Panel [NHANES] Frequency of Communication with Friends and Family: More than three times a week Frequency of Social Gatherings with Friends and Family: More than three times a week Attends Bahai Services: Never Active Member of Clubs or Organizations: No Attends Club or Organization Meetings: Never Marital Status: Intimate Partner Violence: Unknown (02/18/2025) Received from [facility] Humiliation, Afraid, Rape, and Kick questionnaire Fear of Current or Ex-Partner: No Emotionally Abused: Not on file Physically Abused: Not on file Sexually Abused: Not on file Housing Stability: Low Risk (02/18/2025) Received from [facility] Housing Stability Vital Sign In the last 12 months, was there a time when you were not able to pay the mortgage or rent on time?: No Number of Times Moved in the Last Year: Not on file At any time in the past 12 months, were you homeless or living in a retirement (including now)?: No ROS: General: denies fever, chills, fatigue, [...] positive edema to left foot. NEURO: 5.07 [place] monofilament test diminished to digits and forefoot bilaterally 125Hz tuning fork diminished to 1st MPJ bilaterally ORTHO: Positive pain on palpation to toenails of the left 1,2,3,4,5 toes and right 1,2,3,4,5 toes Flexion deformities digits 2 through 5 bilateral diminished pain on palpation of right retrocalcaneal bursa and Achilles with negative palpable [place] ASSESSMENT 1. Contracture of right ankle 2. Achilles tendinitis, right leg 3. Diabetes mellitus due to underlying condition with diabetic polyneuropathy, unspecified whether nursing home insulin use ([facility]) 4. Pain due to onychomycosis of toenails of both feet PLAN Pt to continue with ice to posterior right achilles region. Pt to take nsaids as needed PRN pain Discussed conservative and surgical treatment options for patient today including postoperative time frame and surgical procedure in detail. Patient may continue with conservative treatments including [id number] anti- inflammatories and other treatments suggested today. Patient may want to be s cheduled for surgical intervention in the near future. Discussed possible Tenex procedure with right Achilles surgery in the future and possible physical therapy and discussed physical therapy needs in detail . Patient to contact Podiatry if it is interested in surgery will continue with stretching Debride nails in length and thickness digits 1 through 10 Patient educated today on proper diabetic foot care including monitoring feet daily for any signs of infection openings in the skin or irregularities to both feet. Patient had a diabetic neurologicalexam today to both their feet and discussed proper shoe gear Alexis Gilmore DPM documented in this encounterBarton County Memorial [id number] NoteUT Cardiology - [facility] Subjective Diann Patel is a 69 y.o. year old female patient being seen for follow up heart cath at [facility]. Patient states she not taking the Eliquis. Patient is unsure if she should be taking any other blood thinner, she would like to know since she is not on Eliquis does she need another blood thinner beside the Plavix. Patient states she gets winded and very fatigued. Patient is using o2 at . Patient Active Problem List Diagnosis ??? Nonrheumatic aortic valve stenosis ??? Coronary artery disease involving [place] coronary artery of [place] heart with angina pectoris ??? PAF (paroxysmal atrial fibrillation) (CMS/HCC) ??? Essential hypertension ??? PAD (peripheral artery disease) ??? Numbness of left lower extremity ??? Acute asthmatic bronchitis ??? Asthma without status asthmaticus ??? Arteriosclerosis of arterial coronary artery bypass graft ??? Atrophic gastritis ??? Cataract mature, total senile ??? Chest pain ??? Chondrocalcinosis ??? Chronic ulcer of left foot with fat layer exposed (CMS/HCC) ??? Dehiscence of operative wound ??? Diabetes mellitus (CMS/HCC) ??? Diabetic foot ulcer (CMS/HCC) ??? Diverticulosis of colon ??? Dry gangrene (CMS/HCC) ??? Estrogen deficiency ??? Generalized anxiety disorder ??? History of hysterectomy ??? IBS (irritable bowel syndrome) ??? Migraine ??? Hypercholesterolemia ??? Infection of bone (CMS/HCC) ??? Osteopenia ??? Overweight ??? Pain in soft tissues of limb ??? Polyneuropathy due to type 2 diabetes mellitus (CMS/HCC) ??? Poorly controlled diabetes mellitus (CMS/HCC) ??? Proliferative diabetic retinopathy associated with type 2 diabetes mellitus (CMS/HCC) ??? S/P CABG x 4 ??? 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 Staphylococcal infectious disease ??? Type 2 diabetes mellitus with hyperglycemia (CMS/HCC) ??? Vitreous hemorrhage of right eye (CMS/HCC) ??? Mechanical complication of internal orthopedic device, implant or graft ??? Pseudophakia ??? New onset of congestive heart failure (CMS/HCC) ??? NSTEMI (non-ST elevated myocardial infarction) (CMS/HCC) ??? Coronary artery disease involving [place] heart ??? Acute anemia ??? Dry eyes ??? Epiretinal membrane (ERM) of both eyes Family History Problem Relation Name Age of Onset ??? Diabetes Mother ??? Cancer Mother ??? Heart disease Father ??? Alcohol abuse Brother ??? Diabetes Brother Social History Tobacco Use ??? Smoking status: Former Types: Cigarettes ??? Smokeless tobacco: Never Vaping Use ??? Vaping status: Never Used Substance Use Topics ??? Alcohol use: Never ??? Drug use: Never HPI Diann is seen in follow up. She is [...] angioplasty. She was admitted 02/08/2024 to the [facility] with ?viral infection, weakness, low blood pressure, diarrhea and amlodipine, carvedilol, hydralazine, insulin and spironolactone were stopped. I resumed medications for hypertension on 05/10/2024. On 02/18/2025 she was admitted to [facility] with decompensated diastolic heart failure, anemia and type II NSTEMI. Cardiac catheterization did not show targets for revascularization. She underwent investigation of the anemia and her Eliquis was stopped. She underwent blood transfusion. She also underwent diuresis during the hospitalization. Her Eliquis was discontinued. she continues to be on clopidogrel. Today she is seen in follow-up. Her blood pressure has been elevated. She denies chest pain, palpitations. She continues to have some edilberto (more content not included)...[facility]04-22-2025 History of Present illness Narrative* Johnna Cedeño, CREDIT ADMINISTRATION SPECIALIST - 03/01/2025 11:00 AM EDT Images from the original note were not included. Subjective Patient ID: Diann Patel is a 69 y.o. female who presents for No chief complaint on file.. Diann presents today for a hospital F/U for having a Coronary Angiography done on 02/18/25. She saysshe is feeling weak and tired. She also says she found a lump under her rt arm pit area 2 weeks ago. Pt treated for CHF while at hospital. She is not having any symptoms at this time. She just reportsthat she feels weak., Offered therapy but she does not want therapy at this time. She goes to cardiology tomorrow. Current Outpatient Medications on File Prior to Visit Medication Sig Dispense Refill albuterol (2.5 MG/3ML) 0.083% nebulizer solution 3 ml Inhalation 4 times a day and as needed for 6 (Patient not taking: Reported on 02/23/2025) amLODIPine (Norvasc) 10 MG tablet atorvastatin (Lipitor) 80 MG tablet TAKE 1 TABLET BY MOUTH EVERY DAY 100 tablet 3 carvedilol (Coreg) 25 MG tablet Take 12.5 mg by mouth in the morning and 12.5 mg before bedtime. citalopram (CeleXA) 20 MG tablet Take 1 tablet (20 mg) by mouth Daily 100 tablet 2 clopidogrel (Plavix) 75 MG tablet Continuous Glucose Telephone Diaphragm Assembler (Dexcom G7 Telephone Diaphragm Assembler) device 1 Device yearly 1 each 0 Continuous Glucose Sensor (Dexcom G7 Sensor) misc 1 UNITS EVERY 10 (TEN) DAYS 9 each 3 dabigatran etexilate (Pradaxa) 150 MG capsule Take 1 capsule (150 mg) by mouth in the morning and 1capsule (150 mg) before bedtime. Do not crush or chew.. (Patient not taking: Reported on 02/23/2025)180 capsule 0 dabigatran etexilate (Pradaxa) 150 MG capsule Take 150 mg by mouth in the morning and 150 mg in theevening. (Patient not taking: Reported on 02/23/2025) dapagliflozin (Farxiga) 10 MG Take 1 tablet (10 mg) by mouth Daily (Patient not taking: Reported on02/23/2025) 30 tablet 11 dicyclomine (Bentyl) 10 MG capsule Take 10 mg by mouth in the morning and 10 mg at noon and 10 mg in the evening and 10 mg before bedtime. dicyclomine (Bentyl) 20 MG tablet Take 20 mg by mouth 4 (four) times a day as needed. (Patient not taking: Reported on 02/23/2025) ferrous sulfate 325 (65 Fe) MG tablet Take 325 mg by mouth every other day furosemide (Lasix) 40 MG tablet TAKE 1 TABLET BY MOUTH EVERY DAY (Patient taking differently: Take 40 mg by mouth in the morning and 40 mg before bedtime.) 90 tablet 0 gabapentin (Neurontin) 300 MG capsule Take 1 capsule (300 mg) by mouth in the morning and 1 capsule(300 mg) before bedtime. 180 capsule 3 hydrALAZINE (Apresoline) 25 MG tablet hydrALAZINE (Apresoline) 50 MG tablet Take 75 mg by mouth in the morning and 75 mg before bedtime. insulin glargine (Lantus) 100 UNIT/ML pen Inject 80 Units under the skin at bedtime (Patient takingdifferently: Inject 30 Units under the skin at bedtime) 72 mL 3 insulin pen needle (B-D ULTRAFINE III SHORT [...] 40 mL 2 Insulin Syringe 31G X 03/25 1 ML misc USE DIRECTED TO ADMINISTER INSULIN TWICE DAILY 200 each 3 ketorolac (Acular) 0.5 % ophthalmic solution (Patient not taking: Reported on 02/23/2025) lisinopril 20 MG tablet Take 20 mg by mouth potassium chloride CR (Klor-Con M20) 20 MEQ ER tablet Take 1 tablet (20 mEq) by mouth Daily 90 tablet 0 prednisoLONE acetate (Pred-Forte) 1 % ophthalmic suspension (Patient not taking: Reported on 02/23/2025) spironolactone (Aldactone) 25 MG tablet Take 25 mg by mouth in the morning. (Patient not taking: Reported on 02/23/2025) [DISCONTINUED] furosemide (Lasix) 20 MG tablet Take 60 mg by mouth in the morning. (Patient not taking: Reported on 02/23/2025) No current facility-administered medications on file prior [...] Other Past Medical History: Diagnosis Date A-fib ([facility]) 2022 with RVR Anxiety Aortic stenosis 06/2022 Carotid artery disease ([facility]) Cataract CHF (congestive heart failure) ([facility]) 06/2022 Colon polyp 2016 Diverticulitis DM (diabetes mellitus) ([facility] HLD (hyperlipidemia) ([facility]) HTN (hypertension) ([facility]) OK (myocardial infarction) ([facility]) NSTEMI, initial episode of care ([facility]) 2022 Retinal hemorrhage Past Surgical History: Procedure Laterality Date ANGIOPLASTY 01/13/2023 APPENDECTOMY CARDIAC CATHETERIZATION 2009 with stent; Disease: Myocardial Infarction CATARACT EXTRACTION CHOLECYSTECTOMY COLECTOMY 1994 COLONOSCOPY 04/2006 COLONOSCOPY W/ [...] Smoking Status Former Review of Systems Constitutional: Negative. HENT: Negative. Eyes: Negative. Respiratory: Negative. Cardiovascular: Negative. Gastrointestinal: Negative. Genitourinary: Negative. Musculoskeletal: Negative. Neurological: Positive for weakness. Psychiatric/Behavioral: Negative. All other systems reviewed and are negative. Endocrine: Negative. Objective Physical Exam Vitals reviewed. Constitutional: Appearance: Normal appearance. HENT: Head: Normocephalic. Nose: Nose normal. Mouth/Throat: Mouth: Mucous membranes are moist. Pharynx: Oropharynx is clear. Eyes: Conjunctiva/sclera: Conjunctivae normal. Cardiovascular: Rate and Rhythm: Normal rate and regular rhythm. Pulmonary: Effort: Pulmonary effort is normal. Breath sounds: Normal breath sounds. Abdominal: General: Bowel sounds are normal. Palpations: Abdomen is soft. Skin: General: Skin is warm and dry. Neurological: General: No focal deficit present. Mental Status: She is alert and oriented to person, place, and time. Psychiatric: Mood and Affect: Mood normal. Behavior: Behavior normal. Thought Content: Thought content normal. Assessment/Plan Diagnoses and all orders for this visit: Encounter for screening mammogram for breast cancer - Bilateral screening mammogram; Future Await results Type 2 diabetes mellitus with hyperglycemia, with long-term current use of insulin ([facility]) - insulin glargine (Lantus) 100 UNIT/ML pen; Inject 40 Units under the skin at bedtime Discussed today the importance of proper diabetic control. Discussed possible complications of diabetes, including loss of vision, renal failure, increased risk of heart attacks and strokes, blood vessel and/or nerve damage. Reviewed the recommended changes to reduce your blood sugars and minimize the risk of these complications. Reviewed diabetic goals, including keeping A1C <7.0% and blood pressure < 130/70. The plan for achieving these goals is adherence to medications, maintaining a healthy and balanced diet, and regular activity as discussed during today's visit. Discussed current barriers to achieving these goals. Discussed dietary goals. Discussed decreasing carbohydrates and simple sugar intake. Reviewed portion control with the patient. If the patient still has questions onthis, a referral to a Dietitian can be arranged. Reviewed medications that aid in diabetic control.Discussed proper dosing and educated the patient on possible side effects and complications. The patient verbalized understanding of these instructions. Rheumatoid arthritis, unspecified RH was elevated. May want to consider a referral to rheumatology. Vitreous hemorrhage, left eye ([facility]) This is a chronic medical condition that is stable since last assessment. No changes in treatment are suggested at this time. Vitreous hemorrhage, right eye (CMS/HCC) This is a chronic medical condition that is stable since last assessment. No changes in treatment are suggested at this time. Atherosclerosis of [place] arteries of right leg with ulceration of thigh (CMS/HCC) This is a chronic medical condition that is stable since last assessment. No changes in treatment are suggested at this time. CHF Pt was in the hospital for this condition. This condition is currently stable. Discussed the importance of weighing self everyday at the same time while naked. A weight gain of 3 pounds or greater could be the start of CHF. If you gain 3 pounds overnight, you need to call the office for further instructions. No follow-ups on file. documented in this encounterBarton County Memorial [id number] NoteiMEDS - Medication Counseling Note Who received the medication counseling? Patient Response: Demonstrated understanding Medications delivered: Furosemide Coreg Dicyclomine Medications counseled on: All of the above delivered medications Refills on medications? No Questions/concerns/notes: N/A Delivered discharge medications to patient. Mechanism, dosing, adverse reactions, interactions with food and medications, and/or other aguilar points were discussed. By the end of the discussion, the patient had no questions or concerns. Pamela Bach, PharmD Candidate Maria Victoria Quigley, ParagD [facility] - iMEDS 03/02/25[facility]04-15-2025 NoteHospital Medicine Discharge Summary Final Discharge Diagnosis: Non-STEMI type II can Guzman to acute blood loss anemia Acute on chronic heart failure reduced EF unable to assess NYHA class Coronary artery disease status post CABG 2012 Acute hypoxemic respiratory failure secondary to #2 Bioprosthetic aortic valve status post TAVR in 2021 Hypertension Hyperlipidemia Type 2 diabetes mellitus Admission Diagnosis: New onset of congestive heart failure (CMS/HCC) [I50.9] Hospital course: Diann Patel is a 69 y.o. female with a past medical history significant for HFrEF, CAD s/p CABG x4 in 2012, aortic valve stenosis status post TAVR in 2021 with a Medtronic Evolut FX, IDDM2, HTN . Patient presented with SOB and chest pain. She was transferred here from [place] for NSTEMI and new onset HFrEF. Vitals remarkable for BP 140/54, HR 73, on 6L oxygen. Labs notable for peak troponin 929. EKG showed NSR with non-specific ST changes. Echo on 08/18/2023 shows EF 55 to 60%, mild TR, mild mitral stenosis, mild MR, normal bioprosthetic aortic valve with no significant valvular or paravalvular regurgitation, mild GA. Patient treated for new onset CHF with aggressive diuretics adjustment in her home directed therapy medication. Part of the cardiac workup included a right heart cath on 02/18/2025 : PA(m) 32 and PCWP 21, with moderate post-capillary PH form LV OL. TTE 02/21/25: EF 65%, grade 2 diastolic dysfunction, no RWMA, volume overload, bioprosthetic AVR well-seated with no regurgitation. Patient had troponin elevation felt to be related to acute anemia and likely type II OK. During hospital stay, patient had an episode of acute on chronic anemia with no evidence of active bleed and patient transfused 1 unit of packed RBC. Patient being discharged today to follow-up with cardiology in 1 week for discussion for left atrial appendage occlusive device Patient did qualify for nocturnal oxygenation and she will be discharged 2 L nasal cannula Surgical, Invasive or Diagnostic Procedures Done During Admission: Cardiac Cath Consultations During Admission: Cardiology Dear MD [place] is advised to follow up with you within 1-2 weeks. Items to follow up in ambulatory setting: Patient will need to discuss with cardiology team outpatient left atrial appendage closure device Follow-up with: Cardiology Scheduled appointments: Future Appointments Date Time Provider Department Center 03/02/2025 2:45 PM Valente Chacon MD [facility] Your medication list START taking these medications Instructions Last Dose Given Next Dose Due dicyclomine 10 mg capsule Commonly known as: Bentyl Take 1 capsule (10 mg) by mouth before breakfast, before lunch, before evening meal, and at bedtime. CHANGE how you take these medications Instructions Last Dose Given Next Dose Due carvedilol 12.5 mg tablet Commonly known as: Coreg What changed: medication strength how much to take how to take this when to take this additional instructions Take 1 tablet (12.5 mg) by mouth with breakfast and with evening meal. furosemide 40 mg tablet Commonly known as: Lasix What changed: medication strength how much to take when to take this additional instructions Take 1 tablet (40 mg) by mouth two times daily. insulin glargine 100 unit/mL injection vial Commonly known as: Lantus What changed: how much to take Inject 30 Units under the skin at bedtime for 95 doses. CONTINUE taking these medications Instructions Last Dose Given Next Dose Due amLODIPine 10 mg tablet Commonly known as: Norvasc Take 1 tablet (10 mg) by mouth in the morning. apixaban 5 mg (74 tabs) tablets,dose pack atorvastatin 80 mg tablet Commonly known as: Lipitor citalopram 20 mg tablet Commonly known as: CeleXA clopidogrel 75 mg tablet Commonly known as: Plavix Take 1 tablet (75 mg) by mouth once daily as directed. ferrous sulfate 325 (65 Fe) MG EC tablet gabapentin 300 mg capsule Commonly known as: Neurontin lisinopril 20 mg tablet Take 1 tablet (20 mg) by mouth once daily as directed. loratadine 10 mg tablet Commonly known as: Claritin potassium chloride CR 10 mEq ER tablet Commonly known as: Klor-Con M10 STOP taking these medications azithromycin 500 mg tablet Commonly known as: Zithromax dabigatran etexilate 150 mg capsule Commonly known as: Pradaxa DICLOFENAC SODIUM TOP hydrALAZINE 25 mg tablet Commonly known as: Apresoline hydrALAZINE 50 mg tablet Commonly known as: Apresoline insulin regular 100 unit/mL injection vial Commonly known as: HumuLIN R,NovoLIN R Where to Get Your Medications These medications were sent to [facility] [address] [place] [address] [address] [facility] [place] [address], [facility] [address] carvedilol 12.5 mg tablet dicyclomine 10 mg capsule furosemide 40 mg tablet In[employer] (more content not included)...[facility] 02-22-2025 Note02/22/25 0500 Home Oxygen Therapy Evaluation Patient Qualification for home oxygen Qualifies $ Pulse Oximetry Nocturnal Nocturnal Pulse Ox Start time 222 Nocturnal Pulse Ox End time 0554 Nocturnal initial O2 therapy Room air Nocturnal ending O2 therapy NC (2) Trend in media Patient had 5 min of desaturations on room air at rest while sleeping, lowest saturation was 75% at that point patient was placed on 2L nc @ 01:21[facility] NotePatient admitted to the hospital for: New onset of congestive heart failure. Chart echo from 02/21/2025 reports: EF 65 %. Current echo report does Not qualify for Cardiac Rehab services per CMS eligibility criteria. A Cardiac Rehab referral diagnosis and code must also meet CMS criteria. Palmira Ballesteros RN, BSN Cardiology Outpatient Coordinator Cardiopulmonary RehabUnM[facility]04-14-2025 NoteAs above [facility]04-14-2025 Note-Patient had angiogram on which showed patent 3 [...] overnight desaturation study - Follow-up on the echoUnM[facility]04-14-2025 Note- Resume home medicationsUnMiddletown Hospital04-14-2025 Note- In 2012[facility]04-14-2025 Note-Anticoagulation has been on hold, continue aspirin, repeat hemoglobin daily. No apparent source of bleeding. Patient states that she had her screening colonoscopiesUnMiddletown Hospital04-14-2025 Note-Resume home insulin, adjust based on blood sugarsUnMiddletown Hospital 02-21-2025 Note- On Eliquis 5mg BID at home, rate controlled on carvedilol 25mg BID. Rate controlled here. Anticoagulation has been on hold given low hemoglobin. Patient will need to be evaluated for left atrial appendage occlusion procedure outpatientUnM[facility]let[facility]04-14-2025 NoteHospital Medicine Daily Progress Note - 02/21/2025 10:56 AM; Room: [address] [place] [address] Admission: 02/18/2025 12:20 PM; Length of stay: 3 days THE HOSPITALIST TEAM PREFERS TO USE [employer] FOR NON-URGENT COMMUNICATION 7AM-7PM. IF I DO NOT RESPOND WITHIN 20 MINUTES OR URGENT MATTERS, PLEASE CALL THROUGH THE HANDLE ATTACHER. FROM 7PM-7AM, PLEASE PAGE [phone](COVR). Code Status: Full Code Barriers to Discharge: Medical stability, diuresis Expected Discharge Date: 2 to 3 days Discharge Destination: To be decided Overview Patient is seen for evaluation and management of NSTEMI. Subjective Patient was seen and evaluated at bedside sitting up in bed eating breakfast. On room air. She states that overnight she got slightly short of breath and was put on oxygen which helped. She denies otherwise lightheadedness dizziness nausea vomiting. Appetite is stable. She is responding well to diuretics. Physical Exam GENERAL: The patient is well developed and nontoxic. No apparent distress. VITAL SIGNS: Reviewed in the EMR. HEENT: Nonicteric sclerae, EOMI. Moist mucous membranes. HEART: Coarse breath sounds LUNGS: Coarse breath sounds bilaterally ABDOMEN: Soft, positive bowel sounds, nontender. SKIN: No rash NEUROLOGIC: Cranial nerves II-XII intact without motor/sensory deficit. MSK: 1+ lower extremity edema Visit Vitals BP 160/55 (BP Location: Left arm, Patient Position: Lying) Pulse 68 Temp 36.5 ???C (97.7 ???F) (Temporal) Resp 15 Intake/Output Summary (Last 24 hours) at 02/21/2025 1056 Last data filed at 02/21/2025 0429 Gross per 24 hour Intake 720 ml Output 3550 ml Net -2830 ml Estimated body mass index is 31.75 kg/m??? as calculated from the following: Height as of this encounter: 1.575 m (5' 2 ). Weight as of this encounter: 78.7 kg (173 lb 9.6 oz). Assessment and Plan Assessment & Plan New onset of congestive heart failure (CMS/HCC) -Patient had angiogram on which showed patent [...] desaturation study - Follow-up on the echo NSTEMI (non-ST elevated myocardial infarction) ([facility]) As above Coronary artery disease involving [place] heart As above S/P CABG x 4 - In 2012 Essential hypertension - Resume home medications PAF (paroxysmal atrial fibrillation) ([facility]) - On Eliquis 5mg BID at home, rate controlled on carvedilol 25mg BID. Rate controlled here. Anticoagulation has been on hold given low hemoglobin. Patient will need to be evaluated for left atrial appendage occlusion procedure outpatient Type 2 diabetes mellitus with hyperglycemia ([facility]) -Resume home insulin, adjust based on blood sugars Acute anemia -Anticoagulation has been on hold, continue aspirin, repeat hemoglobin daily. No apparent source of bleeding. Patient states that she had her screening colonoscopies Nutrition Screen: Malnutrition Attestation: I attest to the following: I have personally seen this patient. The patient has been assessed for malnutrition as documentation above, and based on the criteria set by the Academy of Nutrition and Dietetics and the [place] [employer] Enteral and Parenteral Nutrition, meets the diagnosis for malnutrition. A care plan has been established for this patient. VTE Prophylaxis: On hold Scheduled Meds [Held by provider] amLODIPine, 10 mg, oral, Daily aspirin, 81 mg, oral, Daily atorvastatin, 80 mg, oral, Daily carvedilol, 12.5 mg, oral, BID with meals citalopram, 20 mg, oral, Daily [Held by provider] clopidogrel, 75 mg, oral, Once Daily ferrous sulfate, 325 mg, oral, Daily with breakfast furosemide, 60 mg, intravenous, q12h gabapentin, 300 mg, oral, BID hydrALAZINE, 25 mg, oral, BID insulin glargine, 25 Units, subcutaneous, Nightly insulin lispro, 0-5 Units, subcutaneous, TID with meals And insulin lispro, 0-4 Units, subcutaneous, Nightly [Held by provider] lisinopril, 20 mg, oral, Once Daily Oxygen Therapy, , inhalation, Continuous pantoprazole, 40 mg, intravenous, q24h DANA potassium chloride CR, 20 mEq, oral, Daily Pertinent Investigations Hematology: Results from last 7 days Lab Units 02/21/25 0411 02/19/25 1610 02/19/25 0405 WBC AUTO 10*3/uL 9.57 -- 10.27 HEMOGLOBIN g/dL 10.4* 10.5* 10.3* HEMATOCRIT % 34.1* -- 33.4* MCV fL 89.5 -- 91.8 PLATELETS AUTO 10*3/uL 207 -- 191 (more content not included)...[facility]04-14-2025 NotePhysical Therapy Physical Therapy Evaluation Patient Name: Diann Patel : 1955 Today's Date: 02/21/2025 Start Time: 945 Stop Time: 1001 Time Calculation (min): 15 min PT Evaluation Time Entry PT Evaluation (Low) Time Entry: 15 General Subjective: RN approved PT session and OOB activity this date. In bed upon arrival, agreeable to session. Upon completion, patient left in the chair with call light within reach, RN aware Patient Summary: Patient is a 69 y/o female presented from OSH with NSTEMI, New onset CHF. PT Diagnosis: Impaired activity tolerance Patient Active Problem List Diagnosis Nonrheumatic aortic valve stenosis Coronary artery disease involving [place] coronary artery of [place] heart with angina pectoris PAF (paroxysmal atrial fibrillation) (CMS/HCC) Essential hypertension PAD (peripheral artery disease) Numbness of left lower extremity Acute asthmatic bronchitis Asthma without status asthmaticus Arteriosclerosis of arterial coronary artery bypass graft [...] Type 2 diabetes mellitus with hyperglycemia (CMS/HCC) Vitreous hemorrhage of right eye (CMS/HCC) Mechanical complication of internal orthopedic device, implant or graft Pseudophakia New onset of congestive heart failure (CMS/HCC) NSTEMI (non-ST elevated myocardial infarction) (CMS/HCC) Coronary artery disease involving [place] heart Acute anemia Past Medical History: Diagnosis Date A-fib (CMS/HCC) Abnormal ECG Aortic valve stenosis Arrhythmia Coronary artery disease Diabetes mellitus (CMS/HCC) Hypertension Peripheral vascular disease Past Surgical History: Procedure Laterality Date APPENDECTOMY CARDIAC SURGERY CHOLECYSTECTOMY COLON SURGERY CTA ABDOMEN PELVIS W IV CONTRAST 07/12/2022 CT ABDOMEN PELVIS ANGIOGRAM W AND/OR WO IV CONTRAST RANDLE CONVERSION CTA CHEST W IV CONTRAST 06/29/2022 CT CHEST ANGIOGRAM W AND/OR WO IV CONTRAST RANDLE CONVERSION CTA CHEST W IV CONTRAST 07/12/2022 CT CHEST ANGIOGRAM W AND/OR WO IV CONTRAST RANDLE CONVERSION EYE SURGERY Left HERNIA REPAIR HYSTERECTOMY Precautions Precautions Medical Precautions: fall risk, telemetry, [place] Pain Pain Assessment Pain Assessment: No/denies pain Cognition Cognition Overall Cognitive Status: Within Functional Limits Arousal/Alertness: Appropriate responses to stimuli Orientation Level: Oriented X4 Following Commands: Follows all commands and directions without difficulty General Assessment General Assessment Hearing: Intact Hand Dominance: Right Home Living Home Living Type of Home: House Lives With: Spouse Home Adaptive Equipment: Walker rolling, Cane, Wheelchair-manual Home Layout: Two level, Full bath main level, Able to live on main level with bedroom/bathroom Home Access: Stairs to enter with rails Entrance Stairs-Rails: Right Entrance Stairs-Number of Steps: 2 Bathroom Shower/Tub: Tub/shower unit Bathroom Equipment: Grab bars in shower, Shower chair with back, Hand-held shower Prior Level of Function Prior Function Level of [place]: Independent with ADLs and functional transfers, Independent with homemaking with ambulation Prior Functional Mobility: Independent without device ADL Assistance: Independent Homemaking Assistance: Independent Vision Basic Assessment Vision - Basic Assessment Current Vision: No visual deficits Vision - Complex General Assessments Activity Tolerance Endurance: Stage II Sensation Light Touch: No apparent deficits Coordination Movements are Fluid and Coordinated: Yes Postural Control Postural Control: Within Functional Limits Static Sitting Balance Static Sitting-Balance Support: Feet supported Static Sitting-Level of Assistance: Independent Dynamic Sitting Balance Dynamic Sitting-Balance Support: Feet supported, Right upper extremity supported, Left upper extremity supported Dynamic Sitting-Balance: Forward lean, Lateral lean Dynamic Sitting Balance-Level of Assistance: Independent Static Standing Ba (more content not included)...[facility]04-14-2025 Note02/21/25 1011 Admission Assessment Questions Verify insurance with patient Yes Do you understand medical disease or what brought you into the hospital? Yes Who is your current PCP? Champ Bell MD Can I schedule a follow up appointment for you at the time of discharge? No Do you understand why you are taking your current medications? Yes ( helps take care of ordering medications) Are you taking your medications as prescribed? Yes Did patient provide teach back? No Pharmacy Bedside Delivery Status Interested Does the patient have a ed case manager assigned to them through their insurance? Yes (through dr bell's office) Living Arrangement (Current/Prior to Hospitalization) Private residence (lives at home with and adult child) Does the patient have history of HHC or SNF? No Assistive Device Walker;Wheelchair;Cane;Raised toilet seat;Grab bars (shower chair,) Patient's goal for discharge home Was patient reminded that goal for discharge is 11am? Yes Does the patient have transportation at discharge? Yes Type of Residence Private residence Is PT/OT appropriate? Yes Is PT/OT ordered? Yes Is SW consult appropriate? No Is SW consult ordered? No Do you understand the benefits of MyChart? Yes Were you able to send link and activate MyChart? [facility]-20[facility] NoteOccupational Therapy Occupational Therapy Evaluation Patient Name: Diann Patel : 1955 Today's Date: 02/21/2025 Time In: 948 Time Out: 1000 from [facility] with NSTEMI and concern for new onset HFrEF New onset of congestive heart failure (CMS/HCC) NSTEMI (non-ST elevated myocardial infarction) General Subjective: friendly and cooperative Patient Active Problem List Diagnosis Nonrheumatic aortic valve stenosis Coronary artery disease involving [place] coronary artery of [place] heart with angina pectoris PAF (paroxysmal atrial fibrillation) (CMS/HCC) Essential hypertension PAD (peripheral artery disease) Numbness of left lower extremity Acute asthmatic bronchitis Asthma without status asthmaticus Arteriosclerosis of arterial coronary artery bypass graft [...] diabetes mellitus (CMS/HCC) Poorly controlled diabetes mellitus ([facility]/HCC) Proliferative diabetic retinopathy associated with type 2 diabetes mellitus (CMS/HCC) 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 associated with type 2 diabetes mellitus (CMS/HCC) Staphylococcal infectious disease Type 2 diabetes mellitus with hyperglycemia ([facility]) Vitreous hemorrhage of right eye ([facility]) Mechanical complication of internal orthopedic device, implant or graft Pseudophakia New onset of congestive heart failure ([facility]) NSTEMI (non-ST elevated myocardial infarction) ([facility]) Coronary artery disease involving [place] heart Acute anemia Past Medical History: Diagnosis Date A-fib ([facility]) Abnormal ECG Aortic valve stenosis Arrhythmia Coronary artery disease Diabetes mellitus ([facility]/HCC) Hypertension Peripheral vascular disease Past Surgical History: Procedure Laterality Date APPENDECTOMY CARDIAC SURGERY CHOLECYSTECTOMY COLON SURGERY CTA ABDOMEN PELVIS W IV CONTRAST 07/12/2022 CT ABDOMEN PELVIS ANGIOGRAM W AND/OR WO IV CONTRAST RANDLE CONVERSION CTA CHEST W IV CONTRAST 06/29/2022 CT CHEST ANGIOGRAM W AND/OR WO IV CONTRAST RANDLE CONVERSION CTA CHEST W IV CONTRAST 07/12/2022 CT CHEST ANGIOGRAM W AND/OR WO IV CONTRAST RANDLE CONVERSION EYE SURGERY Left HERNIA REPAIR HYSTERECTOMY Precautions Precautions Medical Precautions: fall risk Pain Pain Assessment Pain Assessment: No/denies pain Cognition Cognition Overall Cognitive Status: Within Functional Limits General Assessment General Assessment Hearing: (wfl) Hand Dominance: Right Home Living Home Living Type of Home: House Lives With: Spouse Home Adaptive Equipment: Walker rolling, Cane, Wheelchair-manual (sc, gb, [facility]) Home Layout: Two level, Full bath main level, Able to live on main level with bedroom/bathroom Home Access: Stairs to enter with rails (2) Bathroom Shower/Tub: Tub/shower unit Prior Level of Function Prior Function Level of [place]: Independent with ADLs and functional transfers, Independent with homemaking with ambulation Prior Functional Mobility: Independent without device (drives) Prior IADLs IADL History Homemaking Responsibilities: Yes Meal Prep Responsibility: Primary Dynamic Sitting Balance Dynamic Sitting Balance Dynamic Sitting Balance-Level of Assistance: Independent Static Standing Balance Static Standing Balance Static Standing-Level of Assistance: Close supervision ADL ADL LE Dressing Assistance: Stand by Transfers Transfers Transfer: (indep supine to sit EOB, SBA : sit to stand, 30 feet and sit into chair) Objective General Assessments Activity Tolerance Endurance: Stage II Vision - Basic Assessment Current Vision: No visual deficits Sensation Light Touch: No apparent deficits Coordination Movements are Fluid and Coordinated: Yes Extremity Assessments RUE Assessment RUE Assessment: Within Functional Limits LUE Assessment LUE Assessment: Within Functional Limits Outcome Assessments AM-PAC 6 Clicks Putting on and taking off regular lower body clothing?: A Little (Min Assist/Contact Guard/Supervision) Bathing(Including washing,rinsing,drying)?: A Little (Min Assist/Contact Guard/Supervision) Toileting, which includes using the toilet,bedpan,or urinal?: A Little (Min Assist/Contact Guard/Supervision) Putting on and taking off regular upper body clothing?: None (Independent) Taking care of personal grooming such as br (more content not included)... [facility]04-14-2025 NoteAdult Nutrition Assessment: Name: Diann Patel Date: 1955 Date of Visit: 02/21/25 Admission Dx: New onset of congestive heart failure ([facility]) [I50.9] Reason for assessment: high risk Information obtained from: patient and medical record Past Medical History: Diagnosis Date A-fib ([facility]) Abnormal ECG Aortic valve stenosis Arrhythmia Coronary artery disease Diabetes mellitus ([facility]) Hypertension Peripheral vascular disease Current Medications: [Held by provider] amLODIPine, 10 mg, oral, Daily aspirin, 81 mg, oral, Daily atorvastatin, 80 mg, oral, Daily carvedilol, 12.5 mg, oral, BID with meals citalopram, 20 mg, oral, Daily [Held by provider] clopidogrel, 75 mg, oral, Once Daily ferrous sulfate, 325 mg, oral, Daily with breakfast furosemide, 60 mg, intravenous, q12h gabapentin, 300 mg, oral, BID hydrALAZINE, 25 mg, oral, BID insulin glargine, 25 Units, subcutaneous, Nightly insulin lispro, 0-5 Units, subcutaneous, TID with meals And insulin lispro, 0-4 Units, subcutaneous, Nightly [Held by provider] lisinopril, 20 mg, oral, Once Daily Oxygen Therapy, , inhalation, Continuous pantoprazole, 40 mg, intravenous, q24h DANA potassium chloride CR, 20 mEq, oral, Daily Labs: 0 Lab Value Date/Time POCGLU 160 (H) 02/21/2025 0856 BUN 39 (H) 02/19/2025 0405 CREATININE 1.13 02/19/2025 0405 NA 136 02/19/2025 0405 K 4.4 02/19/2025 0405 MG 2.7 02/18/2025 1441 HGBA1C 10.4 (H) 12/03/2023 1722 HGB 10.4 (L) 02/21/2025 0411 WBC 9.57 02/21/2025 0411 CHOL 223 (H) 2022 2215 HDL 28 2022 2215 Allergies: Allergies Allergen Reactions Penicillin Hives Penicillins Hives and Unknown childhood-swelling Nutrition Problems: Swallowing Assessment: Pt denied any problems with swallowing Mouth: Pt denied any problems with chewing; dentures upper Abdominal Assessment: Pt denied any NVC, and reported that she gets diarrhea a lot as she has had part of her colon removed. Last BM 02/20 I/O: Net fluid: -5.6 L Appetite: good Cognition: Neuro WDL Feeding Skills: Pt reported that she will cook at home and has good access to food Skin Integrity: blanchable erythema pretibial left Edema: generalized non-pitting, RUE non-pitting, LUE non-pitting, RLE non-pitting, LLE non-pitting Other Factors: EF 55-60% om 08/2023 Nutrition Data/Clinical Indicators of Nutrition Status: Height: 157.5 cm (5' 2 ) Weight: 78.7 kg (173 lb 9.6 oz) BMI (Calculated): 31.74 Wt Readings from Last 10 Encounters: 02/21/25 78.7 kg (173 lb 9.6 oz) 12/30/24 79.7 kg Family Med 12/20/24 80.7 kg (178 lb) 12/09/24 78 kg podiatry 08/18/24 77.1 kg (170 lb) cardiology 05/10/24 73.9 kg (163 lb) 02/13/24 73.5 kg (162 lb) cardiology 12/19/23 74.8 kg (165 lb) 12/05/23 78.8 kg (173 lb 11.6 oz) 11/08/22 71.7 kg (158 lb) 10/22/22 73 kg (161 lb) 10/22/22 70.3 kg (155 lb) IBW: 50 kg Weight change: Documented weight history shows weight fluctuations,likely related to fluid. Pt reported that she has gained about 15lbs in 6 weeks and thinks that it is related to fluid. Nutrition Assessment: Pt reported that her appetite is good and she has not had any recent changes in her appetite or intake. Pt reported that she will try to eat 3 meals a day. Breakfast will be things like oatmeal, eggs, toast, or protein shakes. Lunch is a sandwich with ice tea with sweet n low. Dinner is a wide variety of food that pt cooks at home. Pt reported that she likes vegetables and she eats a lot of rice. Pt reported that occasionally she will eat mashed potatoes or fried potatoes. Pt reported that she does not eat a lot of snacks and she tries not to eat after 7:30 or 8 pm. Pt reported that she drinks protein shakes at home, but she does not want them here as she thinks she is going home soon. Pt reported that she does not add salt to her foods, but she will use pepper instead. Pt reported that she wears a continuous glucose monitor to check her blood sugar during the day. Dietary Orders (From admission, onward) Start Ordered 02/21/25740 Special Kitchen Request Once Comments: Please send milk, 2 cups of coffee, oatmeal, wheat toast with butter, fruit cup. Thanks! 02/21/25 0722 02/18/25 5396 Regular Diet Heart Healthy/HTN, CABG,Stroke, (2gNA, low fat, low cholesterol) Diet effective now Question Answer Comment Room Service? Yes Fat restriction: Heart Healthy/HTN, CABG,Stroke, (2gNA, low fat, low cholesterol) 02/18/25 0531 Nutrition Risk: Low Nutrition Diagnosis: No nutrition diagnosis at this time Malnutrition Assessment: Per Registered Dietitian assessment and evaluation, patient does not currently meet criteria OR there is not enough information to support the diagnosis of malnutrition per the clinical criteria set by the Academy of Nutrition and Dietetics (AND) and the [place] Society of Enteral and Parenteral Nutrition (ASPEN). (more content not included)...[facility]04-14-2025 Note [facility] CARDIOLOGY INPATIENT PROGRESS NOTE Reason for follow up: HFpEF, NSTEMI Subjective 02/19/25 Patient was seen and examined this morning while eating breakfast. She states she is feeling okay. She denies chest pain or pressure. Endorses shortness of breath and dyspnea when ambulating to bathroom and back. She does not wear oxygen at home, is on oxygen in room. Denies dizziness or lightheadedness. Denies lower extremity swelling. 02/20/25 Patient was seen and evaluated this morning. She states she is feeling better this AM, was able to get better sleep last night. No chest pain. She feels that her shortness of breath has improved since yesterday. On 02/21/2025 Patient evaluated in room, resting in chair, good spirits. She denies dyspnea, chest pain, lightheadedness, abdominal discomfort or lower extremity edema. Tele: SR 61-88 bpm ALLERGIES Allergies Allergen Reactions Penicillin Hives Penicillins Hives and Unknown childhood-swelling CURRENT MEDS [Held by provider] amLODIPine, 10 mg, oral, Daily aspirin, 81 mg, oral, Daily atorvastatin, 80 mg, oral, Daily carvedilol, 12.5 mg, oral, BID with meals citalopram, 20 mg, oral, Daily [Held by provider] clopidogrel, 75 mg, oral, Once Daily ferrous sulfate, 325 mg, oral, Daily with breakfast furosemide, 60 mg, intravenous, q12h gabapentin, 300 mg, oral, BID hydrALAZINE, 25 mg, oral, BID insulin glargine, 20 Units, subcutaneous, Nightly insulin lispro, 0-5 Units, subcutaneous, TID with meals And insulin lispro, 0-4 Units, subcutaneous, Nightly [Held by provider] lisinopril, 20 mg, oral, Once Daily Oxygen Therapy, , inhalation, Continuous pantoprazole, 40 mg, intravenous, q24h DANA potassium chloride CR, 20 mEq, oral, Daily PRN medications: acetaminophen, melatonin, ondansetron ODT OR ondansetron, Insert peripheral IV AND Saline lock IV AND sodium chloride Objective Patient Vitals for the past 24 hrs: BP Temp Temp src Pulse Resp SpO2 Weight 02/21/25 0421 -- -- -- -- -- -- 78.7 kg (173 lb 9.6 oz) 02/21/25 0420 160/55 -- -- 68 15 97 % -- 02/21/25 0033 152/53 -- -- 61 14 98 % -- 02/21/25 0014 -- -- -- 69 13 96 % -- 02/21/25 0013 -- -- -- 73 21 (!) 74 % -- 02/21/25 0012 -- -- -- 63 16 (!) 85 % -- 02/21/25 0006 -- -- -- 62 17 94 % -- 02/20/258 (!) 163/49 36.5 ???C (97.7 ???F) Temporal 73 18 97 % -- 02/20/25 1212 156/58 36.6 ???C (97.9 ???F) Temporal 63 17 93 % -- BP 160/55 (BP Location: Left arm, Patient Position: Lying) Pulse 68 Temp 36.5 ???C (97.7 ???F) (Temporal) Resp 15 Ht 1.575 m (5' 2 ) Wt 78.7 kg (173 lb 9.6 oz) SpO2 97% BMI 31.75 kg/m??? Wt Readings from Last 3 Encounters: 02/21/25 78.7 kg (173 lb 9.6 oz) 12/20/24 80.7 kg (178 lb) 08/18/24 77.1 kg (170 lb) Physical Exam: BP 160/87 (BP Location: Left arm, Patient Position: Sitting) Pulse 75 Temp 36.2 ???C (97.2 ???F) (Temporal) Resp 18 Ht 1.575 m (5' 2 ) Wt 78.7 kg (173 lb 9.6 oz) SpO2 97% BMI 31.75 kg/m??? General: Alert, appropriate mood / affect. NAD Eyes: anicteric sclera. Non-injected conjunctiva. No xanthelasmas Neck: No elevated JVP. Positive left carotid bruit Pulm: no increased effort of breathing. Breath sounds CTA bilaterally with no wheeze, rhonchi or rales. Cards: HRRR , remote valvular sounds NL S1, S2. No S3 or S4 gallop. Murmur: none Abd: Soft, Nontender, physiologic bowel sounds are present Extr: Lower extremity edema: None. DP pulses faint/present bilaterally Skin: warm, dry, well perfused Neuro: A&Ox3, No gross deficits Psych: appropriate mood, affect. Lab Results Component Value Date NA 136 02/19/2025 K 4.4 02/19/2025 CL 106 02/19/2025 ANIONGAP 9 02/19/2025 BUN 39 (H) 02/19/2025 CREATININE 1.13 02/19/2025 CALCIUM 8.3 (L) 02/19/2025 MG 2.7 02/18/2025 Lab Results Component Value Date BILITOT 0.4 02/18/2025 BILIDIR 0.1 02/18/2025 ALKPHOS 66 02/18/2025 AST 21 02/18/2025 ALT 12 02/18/2025 PROT 6.4 02/18/2025 ALBUMIN 3.7 02/18/2025 Lab Results Component Value Date CHOLESTEROL 223 (H) 2022 TRIGLYCERIDES 285 (H) 2022 HDL 28 2022 LDL CHOLESTEROL 138 (H) 2022 Lab Results Component Value Date BNP 336 (H) 02/18/2025 Lab Results Component Value Date TSH 1.96 2022 No results found for: DIGOXIN LVL Lab Results Component Value Date HGBA1C 10.4 (H) 12/03/2023 Lab Results Component Value Date BNP 336 (H) 02/18/2025 Lab Results Component Value Date WBC 9.57 02/21/2025 RBC 3.81 02/21/2025 HGB 10.4 (L) 02/21/2025 HCT 34.1 (L) 02/21/2025 MCV 89.5 02/21/2025 MCH 27.3 02/21/2025 MCHC 30.5 (L) 02/21/2025 RDW 15.3 (H) 02/21/2025 NEUTOPHILPCT 55.5 12/04/2023 LYMPHOPCT 32.0 12/04/2023 MONOPCT 10.0 12/04/2023 EOSPCT 1.9 12/04/2023 BASOPCT 0.4 12/04/2023 NEUTROABS 5.33 12/04/2023 LYMPHSABS 3.07 12/04/2023 MONOSABS 0.96 12/04/2023 EOSABS 0.18 12/04/2023 BASOSABS 0.04 12/04/2023 PLT 207 (more content not included)...[facility]20-2025 [facility]- [facility] Patient had angiogram on which showed patent 3 [...] good urine output, would continue current diuretic dose[facility]-13-[facility] Note-Anticoagulation has been on hold, continue aspirin, repeat hemoglobin daily. No apparent source of bleeding. Patient states that she had her [facility]-Resume home insulin, adjust based on blood sugarsUn[facility] Note- On Eliquis 5mg BID at home, rate controlled on carvedilol 25mg BID. Rate controlled here. Anticoagulation has been on hold given low hemoglobin. Patient will need to be evaluated for left atrial appendage occlusion procedure [facility] NoteAs aboveUn[facility]04-[facility] Note- Resume home medicationsUn[facility]04-13-2025 NoteHospital Medicine Daily Progress Note - 02/20/2025 12:03 PM; Room: [address] [place], [place] [id number]- Admission: 02/18/2025 12:20 PM; Length of stay: 2 days THE HOSPITALIST TEAM PREFERS TO USE [employer] CH[employer] FOR NON-URGENT COMMUNICATION 7AM-7PM. IF I DO NOT RESPOND WITHIN 20 MINUTES OR URGENT MATTERS, PLEASE CALL THROUGH THE HANDLE ATTACHER. FROM 7PM-7AM, PLEASE PAGE [phone](COVR). Code Status: Full Code Barriers to Discharge: Medical stability, diuresis Expected Discharge Date: 2 to 3 days Discharge Destination: To be decided Overview Patient is seen for evaluation and management of NSTEMI. Subjective Patient was seen and evaluated at bedside. She feels her breathing is same as yesterday, slightly better if anything. Denies headache nausea vomiting. Appetite is stable. She was on 2 L oxygen via nasal cannula with sats 9697% Physical Exam GENERAL: The patient is well developed and nontoxic. No apparent distress. VITAL SIGNS: Reviewed in the EMR. HEENT: Nonicteric sclerae, EOMI. Moist mucous membranes. HEART: Coarse breath sounds LUNGS: Coarse breath sounds bilaterally ABDOMEN: Soft, positive bowel sounds, nontender. SKIN: No rash NEUROLOGIC: Cranial nerves II-XII intact without motor/sensory deficit. MSK: 1+ lower extremity edema Visit Vitals BP 169/53 (BP Location: Right arm, Patient Position: Lying) Pulse 64 Temp 36.7 ???C (98 ???F) (Temporal) Resp 17 Intake/Output Summary (Last 24 hours) at 02/20/2025 1203 Last data filed at 02/20/2025 0432 Gross per 24 hour Intake 1070.42 ml Output 2650 ml Net -1579.58 ml Estimated body mass index is 32.48 kg/m??? as calculated from the following: Height as of this encounter: 1.575 m (5' 2 ). Weight as of this encounter: 80.6 kg (177 lb 9.6 oz). Assessment and Plan Assessment & Plan New onset of congestive heart failure (CMS/HCC) -Patient had angiogram on which showed patent [...] urine output, would continue current diuretic dose NSTEMI (non-ST elevated myocardial infarction) ([facility] As above Coronary artery disease involving [place] heart As above S/P CABG x 4 - In 2012 Essential hypertension - Resume home medications PAF (paroxysmal atrial fibrillation) ([facility]) - On Eliquis 5mg BID at home, rate controlled on carvedilol 25mg BID. Rate controlled here. Anticoagulation has been on hold given low hemoglobin. Patient will need to be evaluated for left atrial appendage occlusion procedure outpatient Type 2 diabetes mellitus with hyperglycemia ([facility]) -Resume home insulin, adjust based on blood sugars Acute anemia -Anticoagulation has been on hold, continue aspirin, repeat hemoglobin daily. No apparent source of bleeding. Patient states that she had her screening colonoscopies Nutrition Screen: Malnutrition Attestation: I attest to the following: I have personally seen this patient. The patient has been assessed for malnutrition as documentation above, and based on the criteria set by the Academy of Nutrition and Dietetics and the [place] Society of Enteral and Parenteral Nutrition, meets the diagnosis for malnutrition. A care plan has been established for this patient. VTE Prophylaxis: On hold Scheduled Meds [Held by provider] amLODIPine, 10 mg, oral, Daily aspirin, 81 mg, oral, Daily atorvastatin, 80 mg, oral, Daily carvedilol, 12.5 mg, oral, BID with meals citalopram, 20 mg, oral, Daily [Held by provider] clopidogrel, 75 mg, oral, Once Daily ferrous sulfate, 325 mg, oral, Daily with breakfast furosemide, 60 mg, intravenous, q12h gabapentin, 300 mg, oral, BID hydrALAZINE, 25 mg, oral, BID insulin glargine, 20 Units, subcutaneous, Nightly insulin lispro, 0-5 Units, subcutaneous, TID with meals And insulin lispro, 0-4 Units, subcutaneous, Nightly [Held by provider] lisinopril, 20 mg, oral, Once Daily Oxygen Therapy, , inhalation, Continuous pantoprazole, 40 mg, intravenous, q24h DANA potassium chloride CR, 20 mEq, oral, Daily Pertinent Investigations Hematology: Results from last 7 days Lab Units 02/19/25 1610 02/19/25 0405 02/18/25 1441 WBC AUTO 10*3/uL -- 10.27 9.77 HEMOGLOBIN g/dL 10.5* 10.3* 7.3* HEMATOCRIT % -- 33.4* 23.9* MCV fL -- 91.8 89.8 PLATELETS AUTO 10*3/uL -- 191 183 Chemistry: Results from last 7 days Lab Units 02/19/25 0405 02/18/25 1441 SODIUM mmol/L 136 137 POTASSIUM mmol/L 4.4 4.5 CHLORID (more content not included)...[facility] 02-20-2025 NoteUTP CARDIOLOGY INPATIENT PROGRESS NOTE Reason for follow up: HFpEF, NSTEMI Subjective 02/19/25 Patient was seen and examined this morning while eating breakfast. She states she is feeling okay. She denies chest pain or pressure. Endorses shortness of breath and dyspnea when ambulating to bathroom and back. She does not wear oxygen at home, is on oxygen in room. Denies dizziness or lightheadedness. Denies lower extremity swelling. 02/20/25 Patient was seen and evaluated this morning. She states she is feeling better this AM, was able to get better sleep last night. No chest pain. She feels that her shortness of breath has improved since yesterday. Tele: SR 61-88 bpm ALLERGIES Allergies Allergen Reactions Penicillin Hives Penicillins Hives and Unknown childhood-swelling CURRENT MEDS [Held by provider] amLODIPine, 10 mg, oral, Daily aspirin, 81 mg, oral, Daily atorvastatin, 80 mg, oral, Daily carvedilol, 12.5 mg, oral, BID with meals citalopram, 20 mg, oral, Daily [Held by provider] clopidogrel, 75 mg, oral, Once Daily ferrous sulfate, 325 mg, oral, Daily with breakfast furosemide, 60 mg, intravenous, q12h gabapentin, 300 mg, oral, BID hydrALAZINE, 25 mg, oral, BID insulin glargine, 20 Units, subcutaneous, Nightly insulin lispro, 0-5 Units, subcutaneous, TID with meals And insulin lispro, 0-4 Units, subcutaneous, Nightly [Held by provider] lisinopril, 20 mg, oral, Once Daily Oxygen Therapy, , inhalation, Continuous pantoprazole, 40 mg, intravenous, q24h DANA potassium chloride CR, 20 mEq, oral, Daily PRN medications: acetaminophen, melatonin, ondansetron ODT OR ondansetron, Insert peripheral IV AND Saline lock IV AND sodium chloride Objective Patient Vitals for the past 24 hrs: BP Temp Temp src Pulse Resp SpO2 Weight 02/20/25 0432 -- -- -- -- -- -- 80.6 kg (177 lb 9.6 oz) 02/20/25 0423 145/63 -- -- 64 22 98 % -- 02/20/25 0009 153/59 -- -- 63 20 99 % -- 02/19/25 1930 161/78 36.8 ???C (98.2 ???F) Temporal 69 16 98 % -- 02/19/25 1400 -- -- -- -- -- -- 85 kg (187 lb 6.3 oz) 02/19/25 1249 154/58 -- -- 79 22 99 % -- 02/19/25 1000 167/56 -- -- 69 22 99 % -- BP 145/63 (BP Location: Right arm, Patient Position: Lying) Pulse 64 Temp 36.8 ???C (98.2 ???F) (Temporal) Resp 22 Ht 1.575 m (5' 2 ) Wt 80.6 kg (177 lb 9.6 oz) SpO2 98% BMI 32.48 kg/m??? Wt Readings from Last 3 Encounters: 02/20/25 80.6 kg (177 lb 9.6 oz) 12/20/24 80.7 kg (178 lb) 08/18/24 77.1 kg (170 lb) Physical Exam: Constitutional General Appearance: well-nourished, well-developed, appears stated age, Overweight Level of Distress: comfortable Eyes MARLENE Neck Neck: supple, trachea midline Carotid Arteries: bilateral normal upstroke, no bruits Jugular Veins: normal jugular venous pressure Thyroid: not enlarged Lungs Respiratory Effort: unlabored Chest Exam: normal curvature, no thoracic deformity Auscultation: Expiratory wheeze heard and Diminished breath sounds Cardiovascular Chest wall: Rate And Rhythm: Regular rate and rhythm Heart Sounds: normal S1, normal s2, no gallop Systolic Murmur: not heard Diastolic Murmur: not heard Extremities: No lower extremity edema in b/l legs Peripheral Pulses Radial Pulse: normal Abdomen Inspection and Palpation: Soft Neurologic Gait: normal gait Skin -L femoral site is clean. No bleeding. No discharge. No ecchymosis. No hematoma or bruit. Band-aid replaced Lab Results Component Value Date NA 136 02/19/2025 K 4.4 02/19/2025 CL 106 02/19/2025 ANIONGAP 9 02/19/2025 BUN 39 (H) 02/19/2025 CREATININE 1.13 02/19/2025 CALCIUM 8.3 (L) 02/19/2025 MG 2.7 02/18/2025 Lab Results Component Value Date BILITOT 0.4 02/18/2025 BILIDIR 0.1 02/18/2025 ALKPHOS 66 02/18/2025 AST 21 02/18/2025 ALT 12 02/18/2025 PROT 6.4 02/18/2025 ALBUMIN 3.7 02/18/2025 Lab Results Component Value Date CHOLESTEROL 223 (H) 2022 TRIGLYCERIDES 285 (H) 2022 HDL 28 2022 LDL CHOLESTEROL 138 (H) 2022 Lab Results Component Value Date BNP 336 (H) 02/18/2025 Lab Results Component Value Date TSH 1.96 2022 No results found for: DIGOXIN LVL Lab Results Component Value Date HGBA1C 10.4 (H) 12/03/2023 Lab Results Component Value Date BNP 336 (H) 02/18/2025 Lab Results Component Value Date WBC 10.27 02/19/2025 RBC 3.64 (L) 02/19/2025 HGB 10.5 (L) 02/19/2025 HCT 33.4 (L) 02/19/2025 MCV 91.8 02/19/2025 MCH 28.3 02/19/2025 MCHC 30.8 (L) 02/19/2025 RDW 16.0 (H) 02/19/2025 NEUTOPHILPCT 55.5 12/04/2023 LYMPHOPCT 32.0 12/04/2023 MONOPCT 10.0 12/04/2023 EOSPCT 1.9 12/04/2023 BASOPCT 0.4 12/04/2023 NEUTROABS 5.33 12/04/2023 LYMPHSABS 3.07 12/04/2023 MONOSABS 0.96 12/04/2023 EOSABS 0.18 12/04/2023 BASOSABS 0.04 12/04/2023 PLT 191 02/19/2025 NRBC 0.0 12/04/2023 No X-ray results found for the past 24 hours CV Testing: Encounter Date: (more content not included)...[facility]04-12-2025 Note- On Eliquis 5mg BID at home, rate controlled on carvedilol 25mg BID. Rate controlled here. Anticoagulation has been on hold given low hemoglobin. Patient will need to be evaluated for left atrial appendage occlusion [facility] NoteAs [facility]-2025 Note-Anticoagulation has been on hold, continue aspirin, repeat hemoglobin daily. No apparent source of bleeding. Patient states that she had her screening [facility]Un[facility]04-12-20[facility] Note- Resume [facility] medications[facility]04-12-2025 Note-Patient had angiogram yesterday which showed patent 3 [...] needed. At home she does not use oxygenUn[facility] 02-19-2025 Note-Resume home insulin, adjust based on blood sugarsUnM[facility]04-12-2025 Note- [facility] 2012[facility] NoteHospital Medicine Daily Progress Note - 02/19/2025 11:53 AM; Room: [address] [place] [address] Admission: 02/18/2025 12:20 PM; Length of stay: 1 days THE HOSPITALIST TEAM PREFERS TO USE [employer] FOR NON-URGENT COMMUNICATION 7AM-7PM. IF I DO NOT RESPOND WITHIN 20 MINUTES OR URGENT MATTERS, PLEASE CALL THROUGH THE HANDLE ATTACHER. FROM 7PM-7AM, PLEASE PAGE [phone](COVR). Code Status: Full Code Barriers to Discharge: Medical stability, diuresis Expected Discharge Date: 2 to 3 days Discharge Destination: To be decided Overview Patient is seen for evaluation and management of NSTEMI. Subjective Patient was seen and evaluated at bedside. She is lying comfortably in bed nasal cannula in place on 5 L oxygen. She states that she is still short of breath but improved than yesterday. Denies headache vision changes double vision shortness of breath. Physical Exam GENERAL: The patient is well developed and nontoxic. No apparent distress. VITAL SIGNS: Reviewed in the EMR. HEENT: Nonicteric sclerae, EOMI. Moist mucous membranes. HEART: Coarse breath sounds LUNGS: Coarse breath sounds bilaterally ABDOMEN: Soft, positive bowel sounds, nontender. SKIN: No rash NEUROLOGIC: Cranial nerves II-XII intact without motor/sensory deficit. MSK: 1+ lower extremity edema Visit Vitals BP 158/57 (BP Location: Right arm, Patient Position: Lying) Pulse 61 Temp 36.7 ???C (98.1 ???F) (Temporal) Resp 19 Intake/Output Summary (Last 24 hours) at 02/19/2025 1153 Last data filed at 02/19/2025 1117 Gross per 24 hour Intake 1857.03 ml Output 2860 ml Net -1002.97 ml Estimated body mass index is 33.67 kg/m??? as calculated from the following: Height as of this encounter: 1.575 m (5' 2 ). Weight as of this encounter: 83.5 kg (184 lb 1.4 oz). Assessment and Plan Assessment & Plan New onset of congestive heart failure (CMS/HCC) -Patient had angiogram yesterday which showed patent [...] At home she does not use oxygen NSTEMI (non-ST elevated myocardial infarction) ([facility] As above Coronary artery disease involving [place] heart As above S/P CABG x 4 - In 2012 Essential hypertension - Resume home medications PAF (paroxysmal atrial fibrillation) ([facility]) - On Eliquis 5mg BID at home, rate controlled on carvedilol 25mg BID. Rate controlled here. Anticoagulation has been on hold given low hemoglobin. Patient will need to be evaluated for left atrial appendage occlusion procedure outpatient Type 2 diabetes mellitus with hyperglycemia ([facility]) -Resume home insulin, adjust based on blood sugars Acute anemia -Anticoagulation has been on hold, continue aspirin, repeat hemoglobin daily. No apparent source of bleeding. Patient states that she had her screening colonoscopies Nutrition Screen: Malnutrition Attestation: I attest to the following: I have personally seen this patient. The patient has been assessed for malnutrition as documentation above, and based on the criteria set by the Academy of Nutrition and Dietetics and the [place] [employer] of Enteral and Parenteral Nutrition, meets the diagnosis for malnutrition. A care plan has been established for this patient. VTE Prophylaxis: On hold Scheduled Meds [Held by provider] amLODIPine, 10 mg, oral, Daily aspirin, 81 mg, oral, Daily atorvastatin, 80 mg, oral, Daily carvedilol, 12.5 mg, oral, BID with meals citalopram, 20 mg, oral, Daily [Held by provider] clopidogrel, 75 mg, oral, Once Daily ferrous sulfate, 325 mg, oral, Daily with breakfast furosemide, 60 mg, intravenous, q12h gabapentin, 300 mg, oral, BID hydrALAZINE, 25 mg, oral, BID insulin glargine, 20 Units, subcutaneous, Nightly insulin lispro, 0-5 Units, subcutaneous, TID with meals And insulin lispro, 0-4 Units, subcutaneous, Nightly [Held by provider] lisinopril, 20 mg, oral, Once Daily Oxygen Therapy, , inhalation, Continuous pantoprazole, 40 mg, intravenous, q24h DANA potassium chloride CR, 20 mEq, oral, Daily sodium chloride, 20 mL/hr, Last Rate: 20 mL/hr (02/19/25 0102) Pertinent Investigations Hematology: Results from last 7 days Lab Units 02/19/25 0405 02/18/25 1441 WBC AUTO 10*3/uL 10.27 9.77 HEMOGLOBIN g/dL 10.3* 7.3* HEMATOCRIT % 33.4* 23.9* MCV fL 91.8 89.8 PLATELETS AUTO 10*3/uL 191 183 Chemistry: Results from last 7 days Lab Units 02/19/25 0405 02/18/25 1441 SODIUM mmol/L 136 137 POTASSIUM mmol/L 4.4 4.5 CHLORIDE mmol (more content not included)...[facility] 02-19-2025 NoteUTP CARDIOLOGY INPATIENT PROGRESS NOTE Reason for follow up: HFpEF, NSTEMI Subjective Patient was seen and examined this morning while eating breakfast. She states she is feeling okay. She denies chest pain or pressure. Endorses shortness of breath and dyspnea when ambulating to bathroom and back. She does not wear oxygen at home, is on oxygen in room. Denies dizziness or lightheadedness. Denies lower extremity swelling. Tele: SR 61-88 bpm ALLERGIES Allergies Allergen Reactions Penicillin Hives Penicillins Hives and Unknown childhood-swelling CURRENT MEDS [Held by provider] amLODIPine, 10 mg, oral, Daily [Held by provider] aspirin, 81 mg, oral, Daily atorvastatin, 80 mg, oral, Daily carvedilol, 12.5 mg, oral, BID with meals citalopram, 20 mg, oral, Daily [Held by provider] clopidogrel, 75 mg, oral, Once Daily ferrous sulfate, 325 mg, oral, Daily with breakfast furosemide, 60 mg, intravenous, q12h gabapentin, 300 mg, oral, BID hydrALAZINE, 25 mg, oral, BID insulin glargine, 20 Units, subcutaneous, Nightly insulin lispro, 0-5 Units, subcutaneous, TID with meals And insulin lispro, 0-4 Units, subcutaneous, Nightly [Held by provider] lisinopril, 20 mg, oral, Once Daily Oxygen Therapy, , inhalation, Continuous pantoprazole, 40 mg, intravenous, q24h DANA potassium chloride CR, 20 mEq, oral, Daily sodium chloride, 20 mL/hr, Last Rate: Stopped (02/19/25 0000) sodium chloride, 20 mL/hr, Last Rate: 20 mL/hr (02/19/25 0102) PRN medications: acetaminophen, melatonin, ondansetron ODT OR ondansetron, Insert peripheral IV AND Saline lock IV AND sodium chloride Objective Patient Vitals for the past 24 hrs: BP Temp Temp src Pulse Resp SpO2 Height Weight 02/19/25 0400 158/57 36.7 ???C (98.1 ???F) Temporal 61 19 99 % -- -- 02/19/25 0349 (!) 165/42 36.5 ???C (97.7 ???F) Temporal 66 14 98 % -- -- 02/19/25 0300 156/75 36.5 ???C (97.7 ???F) Temporal 60 21 100 % -- -- 02/19/25 0215 144/55 36.5 ???C (97.7 ???F) Temporal 64 22 98 % -- -- 02/19/25 0200 144/55 36.4 ???C (97.5 ???F) Temporal 64 22 99 % -- -- 02/19/25 0100 134/58 37.5 ???C (99.5 ???F) Temporal 61 17 -- -- -- 02/19/25 0045 138/52 36.4 ???C (97.5 ???F) Temporal 62 17 100 % -- -- 02/19/25 0030 134/51 36.5 ???C (97.7 ???F) Temporal 62 17 100 % -- -- 02/19/25 0015 134/51 36.5 ???C (97.7 ???F) -- 62 16 -- -- -- 02/19/25 0000 123/57 36.6 ???C (97.9 ???F) Temporal 61 16 100 % -- -- 02/18/25 2300 131/58 36.7 ???C (98.1 ???F) Temporal 64 18 99 % -- -- 02/18/25 2230 127/52 36.6 ???C (97.9 ???F) Temporal 64 19 99 % -- -- 02/18/25 2200 (!) 128/49 36.7 ???C (98.1 ???F) Temporal 65 20 100 % -- -- 04/11/25 2132 134/52 -- -- -- -- -- -- -- 02/18/252129 134/52 36.7 ???C (98.1 ???F) Temporal 64 21 100 % -- -- 02/18/252114 133/61 36.7 ???C (98.1 ???F) Temporal 62 21 99 % -- -- 02/18/252100 (!) 124/47 36.9 ???C (98.4 ???F) Temporal 63 20 100 % -- -- 02/18/252045 113/55 36.9 ???C (98.4 ???F) Temporal 63 21 100 % -- -- 02/18/252033 116/70 36.5 ???C (97.7 ???F) -- 64 19 -- -- -- 02/18/252029 116/70 36.5 ???C (97.7 ???F) Temporal 64 16 99 % -- -- 02/18/25 1947 129/54 -- -- 67 21 99 % -- -- 02/18/251843 -- -- -- -- -- 98 % -- -- 02/18/250 -- -- -- 72 24 98 % -- -- 02/18/25 1744 157/56 -- -- 76 20 99 % -- -- 02/18/25 1549 142/82 37 ???C (98.6 ???F) Temporal 73 20 97 % -- -- 02/18/25 1230 140/54 36.8 ???C (98.2 ???F) Temporal 69 24 99 % 1.575 m (5' 2 ) 83.5 kg (184 lb 1.4 oz) BP 158/57 (BP Location: Right arm, Patient Position: Lying) Pulse 61 Temp 36.7 ???C (98.1 ???F) (Temporal) Resp 19 Ht 1.575 m (5' 2 ) Wt 83.5 kg (184 lb 1.4 oz) SpO2 99% BMI 33.67 kg/m??? Wt Readings from Last 3 Encounters: 02/18/25 83.5 kg (184 lb 1.4 oz) 12/20/24 80.7 kg (178 lb) 08/18/24 77.1 kg (170 lb) Physical Exam: Constitutional General Appearance: well-nourished, well-developed, appears stated age, Overweight Level of Distress: comfortable Eyes MARLENE Neck Neck: supple, trachea midline Carotid Arteries: bilateral normal upstroke, no bruits Jugular Veins: normal jugular venous pressure Thyroid: not enlarged Lungs Respiratory Effort: unlabored Chest Exam: normal curvature, no thoracic deformity Auscultation: Expiratory wheeze heard and Diminished breath sounds Cardiovascular Chest wall: Rate And Rhythm: Regular rate and rhythm Heart Sounds: normal S1, normal s2, no gallop Systolic Murmur: not heard Diastolic Murmur: not heard Extremities: No lower extremity edema in b/l legs Peripheral Pulses Radial Pulse: normal Abdomen Inspection and Palpation: Soft Neurologic Gait: normal gait Skin -L femoral site is clean. No bleeding. No discharge. No ecchymosis. No hematoma or bruit. Band-aid replaced Lab Results Component Value Date NA 136 02/19/2025 K 4.4 02/19/2025 CL 106 02/19/2025 ANIONGAP 9 02/19/2025 BUN 39 (H) 02/19/2025 CREATININE 1.13 02/19/2025 CALCIUM 8.3 (L (more content not included)...[facility] 02-18-2025 NoteCardiology Coronary angiogram shows stable CAD Labs show Hb 7.3 This is a drop compared to baseline In light of these findings, the elevated troponin is a Type II OK secondary to anemia Plan: Please transfuse 2 U PRBC Aim for Hb > 9 g/dL given CAD with elevated troponin Stop eliquis Stop plavix Maintain aspirin 81 mg daily for CAD Outpatient Watchman evaluationUnMiddletown [facility]04-11-2025 Note Patient: Diann Patel Procedure Information Date/Time: 02/18/251826 Procedure: Coronary angiography Location: [facility]URNACE OPERATOR 3 / [facility] (Cath) Providers: Valente Chacon MD Clinical information reviewed: Allergies Meds Physical Exam Airway Mallampati: III TM distance: >3 FB Neck ROM: full Cardiovascular Rhythm: regular Rate: normal Dental Pulmonary Breath sounds clear to auscultation Abdominal Anesthesia Plan ASA 3 other (Conscious sedation.) Anesthetic plan and risks discussed with patient. Use of blood products discussed with patient who consented to blood products. Additional Equipment RequestsParkview Health04-11-2025 Note Case was discussed with the RAMY on 02/18/2025. I physically saw and evaluated the patient on the day of the encounter, performed the aguilar portion(s) of the service and participated in the management. Physical Exam: Visit Vitals BP 142/82 (BP Location: Right arm, Patient Position: Lying) Pulse 73 Temp 37 ???C (98.6 ???F) (Temporal) Resp 20 General: Alert and oriented x3. Cardiology: Irregularly irregular Lungs: Clear to auscultation, no wheezes, rales or rhonchi, symmetric air entry. Abdomen: Soft, non tender, non distended. Extremities: No pitting edema. Assessment/Plan: CHF exacerbation with preserved EF BNP reported elevated at last facility chest x-ray suggestive of pulmonary vascular congestion right more than the left Continue current regimen with Coreg, Lasix, hydralazine and lisinopril and Norvasc on hold Repeat echo pending 2. High sensitive troponins. Patient known history of CABG x 4 in 2012 also underlying diabetes and hypertension Trend troponins Continue heparin drip for now and plan for patient to have cardiac cath, possibly tonight Continue Lipitor, Coreg, Plavix in addition to heparin drip 3. Acute on chronic anemia No evidence of active bleed Patient's hemoglobin 7.3 will transfuse 1 unit of packed RBC to maintain hemoglobin above 8 in her case 4. Severe peripheral vascular disease status post left lower extremity atherectomy and drug-coated balloon angioplasty and stenting in November 2023 with subsequent left SFA drug-eluting balloon angioplasty June 2020 for Patient currently on Plavix 5. Diabetes mellitus type 2 Continue Lantus and sliding scale insulin Lantus might need to be held if patient goes for cath tonight 6. Severe status post TAVR 2021 7. Paroxysmal A-fib Continue Coreg for rate control and patient currently on heparin drip Sam Arita MDParkview Health04-11-2025 Note- follow up anemia workup, possibly iatrogenic from recurrent blood draws over past 12 hours, but she is on eliquis/plavix at home. Follow up stool guaiac, b12, ferritin, folate, and tibc. - Will transfuse 1U in setting of ACS to maintain hgb >8. Lasix 40mg after unit. [facility]04-11-2025 Note- On Eliquis 5mg BID at home, rate controlled on carvedilol 25mg BID. Rate controlled hereUnMiddletown Hospital04-11-2025 Note- acutely decompensated w elevated trop. Hx of diastolic HF. Concern that this decompensation is 2/2 OK. - Sodium restricted diet - Lasix 40mg IV BID x2 doses, reassess in AM.[facility] 02-18-2025 Note- On regular insulin 10U w meals at home. Start sliding scale here. - On 80U nightly of lantus. Reduce to 20U tonight. Will be NPOUnMiddletown Hospital04-11-2025 Note- In 2012UnMiddletown Hospital 02-18-2025 Note- Resume home medicationsUnMiddletown Hospital 02-18-2025 Note- Heparin gtt - Trend trops/EKGs - Cardiology following' - NPO at midnight for cath in AM - SL nitroglycerin prnUnMiddletown Hospital04-11-2025 Note- Has been compliant on plavix/statinUnMiddletown Hospital04-11-2025 NoteHospital Medicine History and Physical 02/18/2025 2:33 PM THE HOSPITALIST TEAM PREFERS TO USE [employer] Mobile CHAT FOR NON-URGENT COMMUNICATION 7AM-7PM. IF I DO NOT RESPOND WITHIN 20 MINUTES OR URGENT MATTERS, PLEASE CALL THROUGH THE HANDLE ATTACHER. FROM 7PM-7AM, PLEASE PAGE [phone](COVR). Chief Complaint No chief complaint on file. History of Present Illness Diann Patel is an 69 y.o. female w a PMH of CAD s/p CABG x4 in 2012, IDDM2, HTN, and diastolic HF who came from [facility] with NSTEMI and concern for new onset HFrEF. Patient reports all was well yesterday but that she woke up this morning acutely short of breath. She denies associated CP, N/V, diaphoresis, pain to the jaw or shoulder, palpitations, or dyspepsia. At [facility] she was requiring Bipap to maintain O2 sats >90. Trop returned elevated there at 600. EKG there with some lateral ST depressions. She was started on a heparin infusion. Our cardiology team was contacted and requested transfer. Upon arrivalhere hstrop returned at 900. She was weaned to 6L on [place] and endorses orthopnea. CXR w venous congestion and bilateral pleural effusions. Cardiology planning cath tomorrow. Hgb here also returning low at 7.3. She denies any melena or hematochezia. No overt bleeding. Baseline appears to be 9-10. Review of System and Physical Exam Temp: [36.8 ???C (98.2 ???F)] 36.8 ???C (98.2 ???F) Heart Rate: [69] 69 Resp: [24] 24 BP: (140)/(54) 140/54 Physical Exam Vitals and nursing note reviewed. Constitutional: General: She is not in acute distress. Appearance: Normal appearance. She is obese. She is ill-appearing. HENT: Head: Normocephalic. Mouth/Throat: Mouth: Mucous membranes are moist. Eyes: Conjunctiva/sclera: Conjunctivae normal. Cardiovascular: Rate and Rhythm: Normal rate and regular rhythm. Pulses: Normal pulses. Heart sounds: Normal heart sounds. No murmur heard. No friction rub. No gallop. Pulmonary: Effort: Respiratory distress (mild) present. Breath sounds: Decreased breath sounds (bibasilar) and rales (bilaterally) present. No wheezing or rhonchi. Abdominal: General: Abdomen is flat. Bowel sounds are normal. There is no distension. Palpations: Abdomen is soft. There is no mass. Tenderness: There is no abdominal tenderness. There is no guarding. Musculoskeletal: General: No swelling, tenderness or deformity. Normal range of motion. Right lower leg: No edema. Left lower leg: No edema. Skin: General: Skin is warm. Capillary Refill: Capillary refill takes less than 2 seconds. Coloration: Skin is not jaundiced. Findings: No erythema, lesion or rash. Neurological: General: No focal deficit present. Mental Status: She is alert and oriented to person, place, and time. Mental status is at baseline. Cranial Nerves: No cranial nerve deficit. Sensory: No sensory deficit. Motor: No weakness. Psychiatric: Mood and Affect: Mood normal. Behavior: Behavior normal. Thought Content: Thought content normal. Judgment: Judgment normal. Review of Systems Constitutional: Negative for chills, diaphoresis, fatigue and fever. HENT: Negative for trouble swallowing. Eyes: Negative for visual disturbance. Respiratory: Positive for shortness of breath. Negative for cough. Cardiovascular: Negative for chest pain and leg swelling. Gastrointestinal: Negative for abdominal distention, abdominal pain, blood in stool, constipation, diarrhea, nausea and vomiting. Musculoskeletal: Negative for arthralgias and joint swelling. Skin: Negative for rash. Neurological: Negative for dizziness, tremors, syncope and numbness. All other systems reviewed and are negative. Assessment and Plan Assessment & Plan New onset of congestive heart failure ([facility]/HCC) - acutely decompensated w elevated trop. Hx of diastolic HF. Concern that this decompensation is 2/2 OK. - Sodium restricted diet - Lasix 40mg IV BID x2 doses, reassess in AM. NSTEMI (non-ST elevated myocardial infarction) (CMS/HCC) - Heparin gtt - Trend trops/EKGs - Cardiology following' - NPO at midnight for cath in AM - SL nitroglycerin prn Coronary artery disease involving [place] heart - Has been compliant on plavix/statin S/P CABG x 4 - In 2012 Essential hypertension - Resume home medications PAF (paroxysmal atrial fibrillation) ([facility]) - On Eliquis 5mg BID at home, rate controlled on carvedilol 25mg BID. Rate controlled here Type 2 diabetes mellitus with hyperglycemia ([facility]) - On regular insulin 10U w meals at home. Start sliding scale here. - On 80U nightly of lantus. Reduce to 20U tonight. Will be NPO Acute anemia - follow up anemia workup, possibly iatrogenic from recurrent blood draws over past 12 hours, but she is on eliquis/plavix at home. Follow up stool guaiac, b12, ferritin, folate, and tibc. - Will transfuse 1U in setting of ACS to maintain hgb >8. Lasix 40mg after unit. VTE Prophylaxis: IV heparin (more content not included)...[facility]04-09-2025 [place] [id number] Discharge Summary Signed Patient: Diann Patel MR#: [id number] : 1955 Acct:[id number] Age/Sex: 69 / F Adm Date: 5 Loc: 3T Room: 3L5556-[address]: Edvin Casper MD Copies to: MD Edvin Robins II, MD~ Providers Date of Discharge: 02/16/25 Discharging Provider: Edvin Casper Primary Care Provider: Champ Bell Consults: 02/15/25 21:27 Consult to Occupational [...] She had no prodrome of symptoms just beforethe pain came on. She does chronically have pain in this area that she is normally able to rub away. She had no changes in her appetite, stooling pattern, had not been gaining or losing significantamount ofweight. In the emergency department, patient had [...] iron deficient and to have normocytic anemia. Shewas recommended oral supplementation with iron every other day (325 mg ferrous sulfate). She was enc ouraged to eat iron rich foods. She was discharged with plan to follow-up with her primary care physician within 7 to 10 days. She was recommended gfot-pqt-qfpzjps treatments for her abdominal discomfort, as this [...] tablet 75 mg PO DAILY Follow Up: Champ Bell II, MD [Primary Care Provider] - (Hospital follow up appointment.Please call and reschedule if needed. ) Continuity of Care Document Health Concerns: A [facility] screening has identified you as FRAIL [...] day that are high in protein 4. THINKPOSITIVE ? Keep your mind active by being sociable and continuing to learn References: Stay Strong:Four Ways to Beat the Frailty Risk https://www.[facility] [place]/health/pasiavvj-xdo-ujkkavrknr/st xq-bxcjiz-mlcl- hmio-bi-nroo-clg-qitrtjk-jyke Exam Physical Exam Vital Signs: Temp Pulse [...] % (Auto) 57.2, Lymph % (Auto) 25.6, [place] % (Auto) 12.6, Eos % (Auto) 3.3, Baso % (Auto) 1.3, Nucleat RBC Rel Count 0.0, Neut # (Auto) 5.0, Lymph # (Auto) 2.3, [place] # (Auto) 1.1 H, Eos # (Auto) 0.3, Baso # (Auto) 0.1, PHA CreatinineClear 36.01, Sodium 137, Potassium 4.9, Chloride 105, Carbon Dioxide 26.2, Anion Gap 10.7, BUN 48 H, Creatinine 1.44 H, Est GFR (CKD-EPI) 39.128, Glucose 142 H D, Estimat Average Glucose 194, Hemoglobin A1c 8.4 H, Calcium 8.3 L, Iron 45 L, TIBC 433, Iron Saturation 10.4 L, Transferrin 309, Eulnquec23.5, Total Bilirubin 0.3, AST 17, ALT 15, [...] Appearance Clear, Urine pH 5.0, Ur Specific [place] 1.044H, Urine Protein Negative, Urine Glucose (UA) 150 [...] MPV9.2, Neut % (Auto) 65.2, Lymph % (Auto)21.3, [place] % (Auto) 9.1, Eos % (Auto) 3.4, Baso % (Auto) 1.0, Nucleat RBC Rel Count 0.0, Neut # (Auto) 6.9, Lymph # (Auto) 2.3, [place] # (Auto) 1.0 H, Eos # (Auto) 0.4, Baso # (Auto) 0.1, Monocyte DistWidth 18.23, PHA Creatinine Clear 36.12, Sodium 132 L, Potassium 5.2 H, Chloride 98, Carbon Opremdk09.8, Anion Gap 13.4, BUN 42 H, Creatinine 1.44 H, Est GFR (CKD-EPI) 39.128, Glucose 371 H, Calcium9.4, Total Bilirubin 0.4, AST 17, ALT 15, Alkaline Phosphatase 73, Total Creatine Kinase 61, Troponin I High Sens 11, B-Natriuretic Peptide 278.0 H, Total Protein 6.6, Albumin 3.9, Globulin2.7, Albumin/Globulin Ratio 1.4, Lipase 41.0 02/15/25 14:13: SARS-CoV-2 Rap RNA(RT-PCR) Negative Documented By: Edvin Casper MD 5 1243 Signed By: 02/16/25 1303 [facility]04-09-2025 Radiology Diagnostic study note [facility] [place] [address] [place] [address] Ultrasound Report Signed Patient: Diann Patel MR#: [id number] : 1955 Acct:[id number] Age/Sex: 69 / F ADM Date: 5 Loc: 3T Room: [address] [place] [address] Type: ADM INOo Attending Dr: Edvin Casper [...] Impression dictated by: Julio Cesar Erwin Jr., D.O.02/16/2025 8:26 AM Dictation Location: [place] [address] Tech: Ana Maria Valdovinos Transcribed By: JOSUE 02/16/25825 Dictated By: Julio Cesar Erwin Jr, DO 02/16/25824 Signed By: 02/16/25825 [facility]04-09-2025 History and physical note Author Edvin Casper [facility] HospitalNote Date/TimeApril 2024 10:23pm[place] [address] Hospitalist H&P Signed Patient: Diann Patel MR#: [id number] : 1955 Acct:[id number] Age/Sex: 69 / F Adm Date: 5 Loc: Room: [address] [place] [address] Type: ADM INOo Attending Dr: Edvin Casper [...] interventions, HTN, HLD, CAD status post CABG, A-fibon Eliquis, carotid stenosis who presents to the emergency department today with multiple complaints. Mainly, patient was coming back from an eye appointment in [facility] when she started having right upper quadrant abdominal pain that came on all of a sudden, was sharp and increased to a 10/10 level very quickly. Patientdoes not normally follow-up here with her medical care. She presented to the [facility] urgent care, but she was too [...] thus they decided to call squad from [facility] urgent care parking lot. She does note [...] that which is noted above in the [facility] Medical History (Updated 02/15/25 @ 22:23 by [...] clean-up per request of Phys. [facility] H/O: hysterectomy Hx of aortic valve replacement 09/2022 Problem List clean-up per request of Phys. EHR [facility] H/O heart artery stent 2022 Problem List clean-up per request of Phys. EHR [facility] History of appendectomy Problem List clean-up per request of Phys. EHR [facility] Hx of hernia repair Problem List clean-up per request of Phys. EHR [facility] History of heart bypass surgery 2012 Problem List clean-up per request of Phys. EHR [facility] History of tonsillectomy Problem List clean-up per [...] % (Auto) 21.3 % (.) 02/15/25 14:30 [place] % (Auto) 9.1 % (.) 02/15/25 14:30 Eos % (Auto) 3.4 % (.) 02/15/25 14:30 Baso % (Auto) 1.0 % (.) 02/15/25 14:30 Nucleat RBC Rel Count 0.0 /100 WBC (0-0.5) 02/15/25 14:30 Neut # (Auto) 6.9 x10E3/uL (1.8-7.7) 02/15/25 14:30 Lymph # (Auto) 2.3 x10E3/uL (1.00-4.8) 02/15/25 14:30 [place] # (Auto) 1.0 x10E3/uL (0.0-0.8) H 02/15/25 [...] By: <Electronically signed by Edvin Casper MD> 02/15/254 [facility] Work Phone: 1(326) 766-302204-08-2025 [place] [address] Hospitalist H&P Signed Patient: Diann Patel MR#: [id number] : 1955 Acct:[id number] Age/Sex: 69 / F Adm Date: 5 Loc: Room: [address] [place] [address] Type: ADM INOo Attending Dr: Edvin Casper [...] interventions, HTN, HLD, CAD status post CABG, A-fibon Eliquis, carotid stenosis who presents to the emergency department today with multiple complaints. Mainly, patient was coming back from an eye appointment in [facility] when she started having right upper quadrant abdominal pain that came on all of a sudden, was sharp and increased to a 10/10 level very quickly. Patientdoes not normally follow-up here with her medical care. She presented to the [facility] urgent care, but she was too [...] thus they decided to call squad from [facility] urgent care parking lot. She does note [...] that which is noted above in the [facility] Medical History (Updated 02/15/25 @ 22:23 by [...] % (Auto) 21.3 % (.) 02/15/25 14:30 [place] % (Auto) 9.1 % (.) 02/15/25 14:30 Eos % (Auto) 3.4 % (.) 02/15/25 14:30 Baso % (Auto) 1.0 % (.) 02/15/25 14:30 Nucleat RBC Rel Count 0.0 /100 WBC (0-0.5) 02/15/25 14:30 Neut # (Auto) 6.9 x10E3/uL (1.8-7.7) 02/15/25 14:30 Lymph # (Auto) 2.3 x10E3/uL (1.00-4.8) 02/15/25 14:30 [place] # (Auto) 1.0 x10E3/uL (0.0-0.8) H 02/15/25 [...] Edvin Casper MD 2110 Signed By: 02/15/252222 [facility]04-08-2025 Evaluation note* Diagnosis Onset Date Resolution Status Admit Date Abdominal pain acuteApril 2024 6:24pmWeaknessacuteApril 2024 6:24pm [facility] Work Phone: 1(362) 424-479304-08-2025 Radiology Diagnostic study [facility] [place] [address] CT Scan Report Signed Patient: Diann Patel MR#: [id number] : 1955 Acct:[id number] Age/Sex: 69 / F ADM Date: 5 Loc: 3T Room: [address] [place] [address] Type: ADM INOo Attending Dr: Edvin Casper MD Copies to: MD Ross Higgins MASTER CONTROL SUPERVISOR~ Ordering Provider: Ross Martinez APRN Date of [...] Manjula Flannery M.D.02/15/2025 4:03 PM Dictation Location: [place] [address] Transcribed By: JOSUE 02/15/25 1602 Dictated By: Manjula Flannery MD 02/15/25 1554 Signed By: 02/15/25 1600 [facility] Work Phone: 1(304) 661-334904-08-2025 Discharge summary Author Edvin Casper [facility] HospitalNote Date/TimeApril 2024 1:03pmChristopher Ville [id number] Discharge Summary Signed Patient: Diann Patel MR#: [id number] : 1955 Acct:[id number] Age/Sex: 69 / F Adm Date: 5 Loc: Room: [address] [place] [address]: Edvin Casper MD Copies to: MD Edvin Robins II, MD~ Providers Date of Discharge: 02/16/25 Discharging Provider: Edvin Casper Primary Care Provider: Champ Bell Consults: 02/15/25 21:27 Consult to Occupational [...] She had no prodrome of symptoms just beforethe pain came on. She does chronically have pain in this area that she is normally able to rub away. She had no changes in her appetite, stooling pattern, had not been gaining or losing significantamount ofweight. In the emergency department, patient had [...] iron deficient and to have normocytic anemia. Shewas recommended oral supplementation with iron every other day (325 mg ferrous sulfate). She was enc ouraged to eat iron rich foods. She was discharged with plan to follow-up with her primary care physician within 7 to 10 days. She was recommended hclk-vpp-pkgprxv treatments for her abdominal discomfort, as this [...] tablet 75 mg PO DAILY Follow Up: Champ Bell II, MD [Primary Care Provider] - (Hospital follow up appointment.Please call and reschedule if needed. ) Continuity of Care Document Health Concerns: A [facility] screening has identified you as FRAIL [...] day that are high in protein 4. THINKPOSITIVE ? Keep your mind active by being sociable and continuing to learn References: Stay Strong:Four Ways to Beat the Frailty Risk https://www.[facility] [place].org/health/vdjzrsfu-zkr-iguvykkhrv/st lv-szzgzy-azlg- gabj-rs-hwum-gfy-taiiueh-dvtq Exam Physical Exam Vital Signs: Temp Pulse [...] % (Auto) 57.2, Lymph % (Auto) 25.6, [place] % (Auto) 12.6, Eos % (Auto) 3.3, Baso % (Auto) 1.3, Nucleat RBC Rel Count 0.0, Neut # (Auto) 5.0, Lymph # (Auto) 2.3, [place] # (Auto) 1.1 H, Eos # (Auto) 0.3, Baso # (Auto) 0.1, PHA CreatinineClear 36.01, Sodium 137, Potassium 4.9, Chloride 105, Carbon Dioxide 26.2, Anion Gap 10.7, BUN 48 H, Creatinine 1.44 H, Est GFR (CKD-EPI) 39.128, Glucose 142 H D, Estimat Average Glucose 194, Hemoglobin A1c 8.4 H, Calcium 8.3 L, Iron 45 L, TIBC 433, Iron Saturation 10.4 L, Transferrin 309, Sqjbpjkc06.5, Total Bilirubin 0.3, AST 17, ALT 15, [...] Appearance Clear, Urine pH 5.0, Ur Specific [place] 1.044H, Urine Protein Negative, Urine Glucose (UA) 150 [...] MPV9.2, Neut % (Auto) 65.2, Lymph % (Auto)21.3, [place] % (Auto) 9.1, Eos % (Auto) 3.4, Baso % (Auto) 1.0, Nucleat RBC Rel Count 0.0, Neut # (Auto) 6.9, Lymph # (Auto) 2.3, [place] # (Auto) 1.0 H, Eos # (Auto) 0.4, Baso # (Auto) 0.1, Monocyte DistWidth 18.23, PHA Creatinine Clear 36.12, Sodium 132 L, Potassium 5.2 H, Chloride 98, Carbon Mywuoqf60.8, Anion Gap 13.4, BUN 42 H, Creatinine 1.44 H, Est GFR (CKD-EPI) 39.128, Glucose 371 H, Calcium9.4, Total Bilirubin 0.4, AST 17, ALT 15, Alkaline Phosphatase 73, Total Creatine Kinase 61, Troponin I High Sens 11, B-Natriuretic Peptide 278.0 H, Total Protein 6.6, Albumin 3.9, Globulin2.7, Albumin/Globulin Ratio 1.4, Lipase 41.0 02/15/25 14:13: SARS-CoV-2 Rap RNA(RT-PCR) Negative Documented By: Edvin Casper MD 5 1243 Signed By: <Electronically signed by Edvin Casper MD> 02/16/25 1303 [facility] Work Phone: 1(759) 859-486104-08-2025 NoteRight Eye Quality was good. Scan locations included subfoveal. Progression has been stable. Findings include normal observations. Left Eye Quality was good. Scan locations included subfoveal. Progression has been stable. Findings include normal observations. Notes Good scan with normal appearanceBarton County Memorial [id number] History of Present illness Narrative* Teena Delcid, - 02/15/2025 10:00 AM EDT Images from the original note were not included. 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 Stable. - sees ANGEL Hernandez in [place] for antiVEGF both eyes (OU). - Diabetes [...] artificial tears were recommended. documented in this encounterBarton County Memorial [id number] Telephone encounter Note* Telephone Encounter - FAITH Holcomb - 02/03/2025 11:09 AM EDT Dexcom sensor sent. NOMS [id number] Miscellaneous Notes* Telephone Encounter - FAITH Holcomb - 02/03/2025 11:09 AM EDT Dexcom sensor sent. documented in this [facility]02-26-2025 Evaluation note* Type Assessment Date assessment Type 2 diabetes meelia itus 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 macular edema, bilateral impression Type 2 diabetes emelia itus 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 macular edema, bilateral: E11.3593. Bilateral. Condition: established, stable OD, active/worsening OS [facility] Work Phone: [phone] History of Present illness Narrative* Encounter Date [...] bandage. Patient is wearing her reading glasses managed services consultant since the surgery. Patient denies any pain [...] described as blurring. Patient denies eye pain. [facility] Physicians Work Phone: [phone] Instructions* Date Instruction Additional Infor dimple Impression/Plan [...] of right eye [facility] Work Phone: [phone] History of Present illness Narrative* Johnna Cedeño, OSORIO - 12/30/2024 1:00 PM EST Images from the original note were not included. Subjective Patient ID: Diann Patel is a 69 y.o. female who presents for A1c F/U Diann presents today for an A1c F/U/ Last [...] chasity is being taken. She sees a cloth drier.Eye exam is current (had cataract surgery). Current [...] (ten) days 3 each 11 Continuous Glucose Telephone Diaphragm Assembler (Dexcom G7 Telephone Diaphragm Assembler) device 1 Device yearly 1 each 0 [...] Other Past Medical History: Diagnosis Date A-fib ([facility]) 2022 with RVR Anxiety Aortic stenosis 06/2022 Carotid artery disease ([facility] Cataract CHF (congestive heart failure) ([facility]) 06/2022 Colon polyp 2016 Diverticulitis DM (diabetes mellitus) ([facility] HLD (hyperlipidemia) ([facility]) HTN (hypertension) ([facility]) OK (myocardial infarction) ([facility]) NSTEMI, initial episode of care ([facility]) 2022 Retinal hemorrhage Past Surgical History: Procedure [...] orders for this visit: Paroxysmal atrial fibrillation ([facility]) - dabigatran etexilate (Pradaxa) 150 MG capsule; [...] patient in getting this medication. 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 [...] No follow-ups on file. documented in this encounterBarton County Memorial [id number] History of Present illness Narrative* Alexis Gilmore, DPM - 12/30/2024 11:00 AM EST Patient: Diann Patel : 1955 PCP: Champ Bell MD SUBJECTIVE Pt presents today for [...] History: Past Medical History: Diagnosis Date A-fib ([facility]) 2022 with RVR Anxiety Aortic stenosis 06/2022 Carotid artery disease ([facility]) Cataract CHF (congestive heart failure) ([facility]) 06/2022 Colon polyp 2016 Diverticulitis DM (diabetes mellitus) ([facility]) HLD (hyperlipidemia) ([facility]) HTN (hypertension) ([facility]) OK (myocardial infarction) ([facility]) NSTEMI, initial episode of care ([facility]) 2022 Retinal hemorrhage Medications: Current Outpatient Medications: [...] Disp: 3 each, Rfl: 11 Continuous Glucose Telephone Diaphragm Assembler (Dexcom G7 Telephone Diaphragm Assembler) device, 1 Device yearly, Disp: 1 each, [...] Resource Strain: Low Risk (06/22/2024) Received from [facility] Overall Financial Resource Strain (CARDIA) Difficulty of Paying Living Expenses: Not hard at all Food Insecurity: No Food Insecurity (12/03/2023) Received from [facility], [facility], [facility] Hunger Vital Sign Within the past 12 months, you worried that your food would run out before you got the money to buymore.: Never true Within the past 12 months, the food you bought just didn't last and you didn't have money to get more.: Never true Transportation Needs: No Transportation Needs (06/22/2024) Received from [facility] PRAPARE - Transportation Lack of Transportation (Medical): No Lack of Transportation (Non-Medical): No Physical Activity: Inactive (06/22/2024) Received from [facility] Exercise Vital Sign Days of Exercise per Week: 0 days Minutes of Exercise per Session: 0 min Stress: Stress Concern Present (12/03/2023) Received from [facility], [facility] [place] of Occupational Health - Occupational Stress Questionnaire Feeling of Stress : To some extent Social Connections: Moderately Isolated (12/03/2023) Received from [facility], [facility] Social Connection and Isolation Panel [NHANES] Frequency of Communication with Friends and Family: More than three times a week Frequency of Social Gatherings with Friends and Family: More than three times a week Attends Bahai Services: Never Active Member of Clubs or Organizations: No Attends Club or Organization Meetings: Never Marital Status: Intimate Partner Violence: Not At Risk (12/03/2023) Received from [facility], [facility] Humiliation, Afraid, Rape, and Kick questionnaire Fear of Current or Ex-Partner: No Emotionally Abused: No Physically Abused: No Sexually Abused: No Housing Stability: Low Risk (06/22/2024) Received from [facility] Housing Stability Vital Sign Unable to [...] positive edema to left foot. NEURO: 5.07 [place] Tru[place] monofilament test diminished to digits and forefoot bilaterally 125Hz tuning fork diminished to 1st MPJ bilaterally ORTHO: Positive pain on palpation to toenails of the left 1,2,3,4,5 toes and right 1,2,3,4,5 toes Flexion deformities digits 2 through 5 bilateral Positive pain on palpation of right retrocalcaneal bursa and Achilles with negative palpable [place] ASSESSMENT 1. Heel spur, right 2. Achilles [...] Patient may continue with conservative treatments including [id number] anti- inflammatories and other treatments suggested today. Patient may want to be s cheduled for surgical intervention in the near future. Discussed possible Tenex procedure with right Achilles surgery in the future and possible physical therapy and discussed physical therapy needs detail and will reassess in 2 weeks Alexis Gilmore DPM documented in this encounterBarton County Memorial [id number] NoteUT Cardiology - [facility] Subjective Diann Patel is a 69 y.o. year old female patient being seen for 4 mo follow up CAD, PAF, PAD, and aortic valve stenosis s/p TAVR. Had labs a few days ago. Denies chest pain, SOB, palpitations, and bleeding on Eliquis. Patient Active Problem List Diagnosis Nonrheumatic aortic valve stenosis Coronary artery disease involving eastern cherokee coronary artery of eastern cherokee heart with angina pectoris (CMS/HCC) PAF (paroxysmal [...] Alcohol use: Never Drug use: Never HPI Diann is seen in follow up. She is [...] angioplasty. She was admitted 02/08/2024 to the [facility] with ?viral infection, weakness, low blood pressure, [...] on the left side (more content not included)...[facility]01-30-2025 History of Present illness Narrative* Alexis Gilmore, DPM - 12/09/2024 9:20 AM EST Patient: Diann Patel : 1955 PCP: Champ Bell MD SUBJECTIVE Patient presents today with [...] History: Past Medical History: Diagnosis Date A-fib ([facility]) 2022 with RVR Anxiety Aortic stenosis 06/2022 Carotid artery disease ([facility]) Cataract CHF (congestive heart failure) ([facility]) 06/2022 Colon polyp 2016 Diverticulitis DM (diabetes mellitus) ([facility]) HLD (hyperlipidemia) ([facility]) HTN (hypertension) ([facility]) OK (myocardial infarction) ([facility]) NSTEMI, initial episode of care ([facility]) 2022 Retinal hemorrhage Medications: Current Outpatient Medications: [...] Disp: 3 each, Rfl: 11 Continuous Glucose Telephone Diaphragm Assembler (Dexcom G7 Telephone Diaphragm Assembler) device, 1 Device yearly, Disp: 1 each, [...] Resource Strain: Low Risk (06/22/2024) Received from [facility] Overall Financial Resource Strain (CARDIA) Difficulty of Paying Living Expenses: Not hard at all Food Insecurity: No Food Insecurity (12/03/2023) Received from [facility], [facility], [facility] Hunger Vital Sign Within the past 12 months, you worried that your food would run out before you got the money to buymore.: Never true Within the past 12 months, the food you bought just didn't last and you didn't have money to get more.: Never true Transportation Needs: No Transportation Needs (06/22/2024) Received from [facility] PRAPARE - Transportation Lack of Transportation (Medical): No Lack of Transportation (Non-Medical): No Physical Activity: Inactive (06/22/2024) Received from [facility] Exercise Vital Sign Days of Exercise per Week: 0 days Minutes of Exercise per Session: 0 min Stress: Stress Concern Present (12/03/2023) Received from [facility], [facility] [place] of Occupational Health - Occupational Stress Questionnaire Feeling of Stress : To some extent Social Connections: Moderately Isolated (12/03/2023) Received from [facility], [facility] Social Connection and Isolation Panel [NHANES] Frequency of Communication with Friends and Family: More than three times a week Frequency of Social Gatherings with Friends and Family: More than three times a week Attends Bahai Services: Never Active Member of Clubs or Organizations: No Attends Club or Organization Meetings: Never Marital Status: Intimate Partner Violence: Not At Risk (12/03/2023) Received from [facility], [facility] Humiliation, Afraid, Rape, and Kick questionnaire Fear of Current or Ex-Partner: No Emotionally Abused: No Physically Abused: No Sexually Abused: No Housing Stability: Low Risk (06/22/2024) Received from [facility] Housing Stability Vital Sign Unable to [...] positive edema to left foot. NEURO: 5.07 [place] monofilament test diminished to digits and forefoot bilaterally 125Hz tuning fork diminished to 1st MPJ bilaterally ORTHO: Positive pain on palpation to toenails of the left 1,2,3,4,5 toes and right 1,2,3,4,5 toes Flexion deformities digits 2 through 5 bilateral Positive pain on palpation of right retrocalcaneal bursa and Achilles with negative palpable [place] DIAGNOSTIC US REPORT: Verbal order for ultrasound [...] condition with diabetic polyneuropathy, unspecified whether terminal carman insulin use ([facility]) 3. Pain due to onychomycosis of toenails of both feet 4. Onychomycosis 5. PVD (peripheral vascular disease) ([facility]) 6. Achilles tendinitis, right leg 7. Contracture [...] consented. Alexis Gilmore DPM documented in this [facility]12-12-2024 Evaluation note* Type Assessment Date assessment Type [...] ation), bilateral: H26.493 [facility] Work Phone: [phone]) 268-994512-06-2024 History of Present illness Narrative* Teena Delcid DO - 10/15/2024 10:15 AM EST Images from the original note were not included. Assessment/Plan Diagnoses and all orders for this visit: Pseudophakia - s/p CE OS (1mth): Patient should be close to off all post-op meds. Pt. received final refraction for this eye today. documented in this [facility]11-21-2024 History of Present illness Narrative* FAITH Holcomb - 09/30/2024 10:30 AM EST Images from the original note were not included. Subjective Patient ID: Diann Patel is a 69 y.o. female who presents for 1wk F/U for asthmatic bronchitis. Diann presents today for a 1wk F/U for [...] (ten) days 3 each 11 Continuous Glucose Telephone Diaphragm Assembler (Dexcom G7 Telephone Diaphragm Assembler) device 1 Device yearly 1 each 0 [...] Other Past Medical History: Diagnosis Date A-fib ([facility]) 2022 with RVR Anxiety Aortic stenosis 06/2022 Carotid artery disease ([facility]) Cataract CHF (congestive heart failure) ([facility]) 06/2022 Colon polyp 2016 Diverticulitis DM (diabetes mellitus) ([facility]) HLD (hyperlipidemia) ([facility]) HTN (hypertension) ([facility]) OK (myocardial infarction) ([facility]) NSTEMI, initial episode of care ([facility]) 2022 Retinal hemorrhage Past Surgical History: Procedure [...] vaccination - Influenza, high-dose seasonal, quadrivalent, PF (SUA286) (Fluzone High Dose [place] 0.7mL dose) Afebrile today, and all recent symptoms resolved or improving. Provided pt with Flu shot today. Shetolerated this well. Hypotension, unspecified hypotension type Encouraged pt to increase her water intake. Reach out to Cardiology if bottom number of BP runs low Follow up in about 3 months (around 12/31/2024) for Diabetes. documented in this encounterBarton County Memorial [id number] History of Present illness Narrative* Alexis Gilmore, KIKA - 09/30/2024 9:10 AM EST Patient: Diann Car Amanda : 1955 PCP: Champ Bell MD SUBJECTIVE Patient presents today for [...] states she had improvement from seeing this [facility] doctors with intervention and has follow up in the near future Patient was seen in [place] for vascular intervention in the past with hx of DM2 and PVD Patient states continued pain to the region and was to follow up with vascular surgeon at the [facility] and states that she did follow up [...] History: Past Medical History: Diagnosis Date A-fib ([facility]) 2022 with RVR Anxiety Aortic stenosis 06/2022 Carotid artery disease ([facility]) Cataract CHF (congestive heart failure) ([facility]) 06/2022 Colon polyp 2016 Diverticulitis DM (diabetes mellitus) ([facility]) HLD (hyperlipidemia) ([facility]) HTN (hypertension) ([facility]) OK (myocardial infarction) ([facility]) NSTEMI, initial episode of care ([facility]) 2022 Retinal hemorrhage Medications: Current Outpatient Medications: [...] Disp: 3 each, Rfl: 11 Continuous Glucose Telephone Diaphragm Assembler (Dexcom G7 Telephone Diaphragm Assembler) device, 1 Device yearly, Disp: 1 each, [...] Resource Strain: Low Risk (06/22/2024) Received from [facility] Overall Financial Resource Strain (CARDIA) Difficulty of Paying Living Expenses: Not hard at all Food Insecurity: No Food Insecurity (12/03/2023) Received from [facility], [facility] Hunger Vital Sign Within the past 12 months, you worried that your food would run out before you got the money to buymore.: Never true Within the past 12 months, the food you bought just didn't last and you didn't have money to get more.: Never true Transportation Needs: No Transportation Needs (06/22/2024) Received from [facility] PRAPARE - Transportation Lack of Transportation (Medical): No Lack of Transportation (Non-Medical): No Physical Activity: Inactive (06/22/2024) Received from [facility] Exercise Vital Sign Days of Exercise per Week: 0 days Minutes of Exercise per Session: 0 min Stress: Stress Concern Present (12/03/2023) Received from [facility], [facility] [place] of Occupational Health - Occupational Stress Questionnaire Feeling of Stress : To some extent Social Connections: Moderately Isolated (12/03/2023) Received from [facility], [facility] Social Connection and Isolation Panel [NHANES] Frequency of Communication with Friends and Family: More than three times a week Frequency of Social Gatherings with Friends and Family: More than three times a week Attends Bahai Services: Never Active Member of Clubs or Organizations: No Attends Club or Organization Meetings: Never Marital Status: Intimate Partner Violence: Not At Risk (12/03/2023) Received from [facility], [facility] Humiliation, Afraid, Rape, and Kick questionnaire Fear of Current or Ex-Partner: No Emotionally Abused: No Physically Abused: No Sexually Abused: No Housing Stability: Low Risk (06/22/2024) Received from [facility] Housing Stability Vital Sign Unable to [...] positive edema to left foot. NEURO: 5.07 [place] monofilament test diminished to digits and forefoot bilaterally 125Hz tuning fork diminished to 1st MPJ bilaterally ORTHO: Positive pain on palpation nails 1 through 10 Flexion deformities digits 2 through 5 bilateral ASSESSMENT 1. Dry gangrene ([facility]) 2. PVD (peripheral vascular disease) ([facility]) 3. Diabetes mellitus due to underlying condition with diabetic polyneuropathy, unspecified whether nursing home insulin use ([facility]) 4. Pain due to onychomycosis of toenails [...] gear. Alexis Gilmore DPM documented in this encounterBarton County Memorial [id number] History of Present illness Narrative* Johnna Cedeño, OSORIO - 09/22/2024 9:30 AM EST Images from the original note were not included. Subjective Patient ID: Diann Patel is a 69 y.o. female who [...] (ten) days 3 each 11 Continuous Glucose Telephone Diaphragm Assembler (Dexcom G7 Telephone Diaphragm Assembler) device 1 Device yearly 1 each 0 [...] Other Past Medical History: Diagnosis Date A-fib ([facility]) 2022 with RVR Anxiety Aortic stenosis 06/2022 Carotid artery disease ([facility]) Cataract CHF (congestive heart failure) ([facility]) 06/2022 Colon polyp 2016 Diverticulitis DM (diabetes mellitus) ([facility]) HLD (hyperlipidemia) ([facility]) HTN (hypertension) ([facility]) OK (myocardial infarction) ([facility]) NSTEMI, initial episode of care ([facility]) 2022 Retinal hemorrhage Past Surgical History: Procedure [...] orders for this visit: Acute asthmatic bronchitis ([facility]) - levoFLOXacin (Levaquin) 500 MG tablet; Take [...] hyperglycemia, with long-term current use of insulin ([facility]) - POCT Glycated hemoglobin, total - insulin [...] No follow-ups on file. documented in this [facility]10-29-[facility] History of Present illness Narrative* Teena Delcid [...] vision, questions or concerns. documented in this [facility]10-22-2024 History of Present illness Narrative* Teena Delcid [...] different lens options were explained including the [id number] fees for any upgrades. Intraocular lens (IOL) [...] Extremities: no pitting edema. documented in this encounterBarton County Memorial [id number] NotePatient here for 3 mo follow up aortic valve stenosis s/p TAVR, CAD, PAF, and PAD. She underwent vascular surgery at in Jun 2024. No labs since then. Denies chest pain, SOB, palpitations, and bleeding on Eliquis. Review of Systems Cardiovascular: Positive for leg swelling (LLE, resolves by morning). Neurological: Positive for numbness. All other systems reviewed and are negative.[facility] 08-18-2024 NoteCardiovascular Medicine [facility] SUBJECTIVE Chief Complaint Patient presents with Coronary Artery Disease Atrial Fibrillation Valve Disorder Peripheral Vascular Disease Diann Patel is a 69 y.o. female here [...] aortic valve stenosis Coronary artery disease involving eastern [place] coronary artery of eastern [place] heart with angina pectoris (CMS/HCC) PAF (paroxysmal [...] (CMS/HCC) Vitreous hemorrhage of right eye (CMS/HCC) Past Medical History: Diagnosis Date A-fib (CMS/HCC) Aortic valve stenosis Coronary artery disease Diabetes mellitus (CMS/HCC) Hypertension Peripheral vascular disease (CMS/HCC) Family History Problem Relation Name Age [...] 20 mEq by west (more content not included)...[facility]09-10-2024 History of Present illness Narrative* Micheal Nova, MASTER CONTROL SUPERVISOR-CORPORATE PLANNER - 07/20/2024 3:30 PM EDT Images from the original note were not included. [facility] Note Referring Provider: Noe Conklin DO PCP: No primary care provider on file. Lead Sewage Plant Operator: Alexis Gilmore DPM CC: 1 month post procedure FU Subjective HPI: Diann Patel is 69 y.o. female with history [...] History: 12/04/23: LLE angiogram, jet stream atherectomy, SUPERVISOR ELECTROLYTIC TINNING and stenting of SFA/pop (Dr. Padilla) for [...] Index (BRIDGER) Without Exercise 07/20/2024 Patient Name: DIANN PATEL Reading Physician: [id number] Nury Blackwell MD, RPVI Study Date: 07/20/2024 Ordering Physician: [id number] TERRI SOSA MRN/PID: [id number] Technologist: Chanda Martinez RVT Technologist 2: Date of /Age: 8 1955 / 69 years Gender: F Admission Status: Outpatient Location Performed: [facility] Diagnosis/ICD: Peripheral vascular disease, unspecified-I73.9 CPT Codes: 69945 Peripheral artery BRIDGER Only CONCLUSIONS: Right Lower [...] Left Brachial Pressure 175 mmHg 184 mmHg [id number] Nury Blackwell MD, RPVI Assessment/Plan Diann Patel is 69 y.o. female with h/o [...] if needed ESTELLA Strong documented in this encounterMer[facility] Hospital Work Phone: 1(455) 777-267409-10-2024 Instructions* Patient Instructions* ESTELLA Strong - 07/20/2024 3:30 PM EDT Thank you for coming to see us in the [facility] today. We have reviewed your vascular testing [...] concerns please give us a call at [phone] option 1 [facility] Work Phone: 1(585) 716-602809-03-2024 History of Present illness Narrative* Teena Delcid, - 07/13/2024 1:00 PM EDT Images from the original note were not included. Subjective Patient ID: Diann Patel is a 69 y.o. female. Chief [...] (ten) days 3 each 11 Continuous Glucose Telephone Diaphragm Assembler (Dexcom G7 Telephone Diaphragm Assembler) device 1 Device yearly 1 each 0 [...] (Other) Past Medical History: Diagnosis Date A-fib ([facility]) 2022 with RVR Anxiety Aortic stenosis 06/2022 Carotid artery disease ([facility]) Cataract CHF (congestive heart failure) ([facility]) 06/2022 Colon polyp 2016 Diverticulitis DM (diabetes mellitus) ([facility]) HLD (hyperlipidemia) ([facility]) HTN (hypertension) ([facility]) OK (myocardial infarction) ([facility]) NSTEMI, initial episode of care ([facility]) 2022 Retinal hemorrhage Allergies Allergen Reactions Penicillins [...] @ 1:09 PM Additional Tests Keratometry K1 [place] K2 [place] Right 43.75 180 44 90 Left 44.25 [...] retina superior Refraction Manifest Refraction Sphere Cylinder [place] Right +1.75 -0.75 098 Left Assessment/Plan Cataract mature, total senile - IOL Biometry - OU - Both Eyes (CPT 87700) - Visually Significant Cataract, OU: I discussed [...] different lens options were explained including the fvb-ka-dabgan fees for any upgrades. Intraocular lens (IOL) [...] improvement to the vision. documented in this encounterBarton County Memorial [id number] History of Present illness Narrative* Alexis Gilmore, LAMARM - 07/09/2024 11:50 AM EDT Patient: Diann Patel : 1955 PCP: Champ Bell MD SUBJECTIVE Patient presents today for [...] states she had improvement from seeing this [facility] doctors with intervention and has follow up in the near future Patient was seen in [place] for vascular intervention in the past with hx of DM2 and PVD Patient states continued pain to the region and was to follow up with vascular surgeon at the [facility] and states that she did follow up [...] History: Past Medical History: Diagnosis Date A-fib ([facility]) 2022 with RVR Anxiety Aortic stenosis 06/2022 Carotid artery disease ([facility]) Cataract CHF (congestive heart failure) ([facility]) 06/2022 Colon polyp 2016 Diverticulitis DM (diabetes mellitus) ([facility]) HLD (hyperlipidemia) ([facility]) HTN (hypertension) ([facility]) OK (myocardial infarction) ([facility]) NSTEMI, initial episode of care ([facility]) 2022 Retinal hemorrhage Medications: Current Outpatient Medications: [...] Disp: 3 each, Rfl: 11 Continuous Glucose Telephone Diaphragm Assembler (Dexcom G7 Telephone Diaphragm Assembler) device, 1 Device yearly, Disp: 1 each, [...] Resource Strain: Low Risk (06/22/2024) [facility] Overall Financial Resource Strain (CARDIA) Difficulty of Paying Living Expenses: Not hard at all Food Insecurity: No Food Insecurity (12/03/2023) [facility], [facility] Hunger Vital Sign Within the past 12 months, you worried that your food would run out before you got the money to buymore.: Never true Within the past 12 months, the food you bought just didn't last and you didn't have money to get more.: Never true Transportation Needs: No Transportation Needs (06/22/2024) [facility] PRAPARE - Transportation Lack of Transportation (Medical): No Lack of Transportation (Non-Medical): No Physical Activity: Inactive (06/22/2024) Re[facility] from [facility] Exercise Vital Sign Days of Exercise per Week: 0 days Minutes of Exercise per Session: 0 min Stress: Stress Concern Present (12/03/2023) Received from [facility], [facility] [place] of Occupational Health - Occupational Stress Questionnaire Feeling of Stress : To some extent Social Connections: Moderately Isolated (12/03/2023) Received from [facility], [facility] Social Connection and Isolation Panel [NHANES] Frequency of Communication with Friends and Family: More than three times a week Frequency of Social Gatherings with Friends and Family: More than three times a week Attends Bahai Services: Never Active Member of Clubs or Organizations: No Attends Club or Organization Meetings: Never Marital Status: Intimate Partner Violence: Not At Risk (12/03/2023) Received from [facility], [facility] Humiliation, Afraid, Rape, and Kick questionnaire Fear of Current or Ex-Partner: No Emotionally Abused: No Physically Abused: No Sexually Abused: No Housing Stability: Low Risk (06/22/2024) [facility] Housing Stability Vital Sign Unable to [...] positive edema to left foot. NEURO: 5.07 [place] Truong monofilament test diminished to digits and forefoot bilaterally 125Hz tuning fork diminished to 1st MPJ bilaterally ORTHO: Positive pain on palpation nails 1 through 10 Flexion deformities digits 2 through 5 bilateral ASSESSMENT 1. PVD (peripheral vascular disease) (CMS/HCC) 2. Diabetes mellitus due to underlying condition with diabetic polyneuropathy, unspecified whether terminal carman insulin use ([facility]) 3. Dry gangrene (CMS/HCC) 4. Onychomycosis 5. Toe pain, bilateral PLAN [...] issues Alexis Gilmore DPM documented in this encounterBarton County Memorial [id number] Evaluation note* Type Assessment Date assessment Type 2 diabetes emelia itus 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 macular edema, bilateral impression Type 2 diabetes emelia itus 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 macular edema, bilateral: E11.3593. Bilateral. Condition: established, stable OD, active/worsening OS [facility] Work Phone: 1(735) 769-547108-21-2024 History of Present illness Narrative* Encounter Date [...] bandage. Patient is wearing her reading glasses managed services consultant since the surgery. Patient denies any pain [...] described as blurring. Patient denies eye pain. [facility] Work Phone: [phone] Instructions* Date Instruction Additional Infor dimple Impression/Plan [...] of right eye [facility] Work Phone: 1([phone]) 478-537808-12-2024 Plan of care note* Care Plan - [...] Goal: Free from fall injury Outcome: Progressing [facility] Work Phone: [phone] Miscellaneous Notes* Care Plan - Massiel Sesay [...] Attending: * Nely Curry - Primary Resident/Fellow/Other Entry Level Software Developer: Surgeons and Role: * Braeden Colin MD - Fellow Indications: Pre-op Diagnosis * PAD (peripheral artery disease) ([facility]) [I73.9] Post-procedure diagnosis: Post-op Diagnosis * PAD (peripheral artery disease) ([facility]) [I73.9] Procedure(s): Lower Extremity Angiogram and Intervention 37023 - [facility] ANGIOGRAPHY EXTREMITY UNILATERAL RS&I Procedure Findings: -LLE severe claudication and CLI [place] class V: Patient status post successful revascularization using directional ghyvvvluafb-LVX-STF to entire left SFA and popliteal with good results. Access of the Procedure: 6F right TRUCK DRIVER HELPER, closed with Vascade and manual pressure. Complications: [...] alternatives discussed with patient. documented in this [facility] Work Phone: [phone]) 697-926508-12-2024 History of Present illness Narrative* Blu Mobley, PharmD - 06/21/2024 2:32 PM EDT Pharmacy Medication History Review Diann Patel is a 68 y.o. female admitted for PAD (peripheral artery disease) ([facility] Pharmacy reviewed the patient's uqzjk-iy-fliryychn medications and allergies for accuracy. Medications ADDED: acetaminophen Medications CHANGED: Albuterol as needed for shortness of breath/wheezing Basaglar KwikPen 100units/mL- 50 units at bedtime Ondansetron ODT as needed for nausea/vomiting Medications REMOVED: Spironolactone The list below reflects the updated SUPERVISOR ELECTROLYTIC TINNING list. Comments regarding how patient may be [...] Below are additional concerns with the patient's SUPERVISOR ELECTROLYTIC TINNING list. N/A Blu Mobley PharmD Transitions of Care Pharmacist [facility] Please reach out via Secure Chat for questions, or if no response call Limtel or StepOne[employer] documented in this [facility] Work Phone: [phone]) [phone] Note* Post-Procedure Note - Nely Curry MD - 06/21/2024 2:05 PM EDT Physician Transition of Care Summary Invasive Cardiovascular Lab Procedure Date: 06/21/2024 Attending: * Nely Curry - Primary Resident/Fellow/Other Entry Level Software Developer: Surgeons and Role: * Bareden Colin MD - Fellow Indications: Pre-op Diagnosis * PAD (peripheral artery disease) (CMS-HCC) [I73.9] Post-procedure diagnosis: Post-op Diagnosis * PAD (peripheral artery disease) ([facility]) [I73.9] Procedure(s): Lower Extremity Angiogram and Intervention 17498 - [facility] ANGIOGRAPHY EXTREMITY UNILATERAL RS&I Procedure Findings: -LLE severe claudication and CLI [place] class V: Patient status post successful revascularization using directional ktalhaspzvd-ZBV-FXD to entire left SFA and popliteal with good results. Access of the Procedure: 6F right TRUCK DRIVER HELPER, closed with Vascade and manual pressure. Complications: [...] by: Nely Curry MD, 06/21/2024 5:00 PM [facility] Work Phone: [phone]) [phone] Note* Pre-Sedation Documentation - Braeden Colin MD - 06/21/2024 1:58 PM EDT Sedation Plan ASA 3 Mallampati class: III. Risks, benefits, and alternatives discussed with patient. [facility] Work Phone: [phone] History of Present illness Narrative* Margareth Escamilla DO - 06/15/2024 3:00 PM EDT Images from the original note were not included. [facility] Note Referring Provider: Noe Conklin DO PCP: No primary care provider on file. Lead Sewage Plant Operator: Alexis Gilmore DPM CC: PAD Subjective HPI: Diann Patel is 68 y.o. female with history [...] a refill until her procedure on Friday. LHC in 2021 showed no targets for revascularization with patent 3/4 bypass graft Past Vascular History: 12/04/23: LLE angiogram, jet stream atherectomy, SUPERVISOR ELECTROLYTIC TINNING and stenting of SFA/pop (Dr. Padilla) for [...] ondansetron ODT (Zofran-ODT) 4 mg disintegrating tablet GarmorTouch Ultra Test strip USE TO TEST BLOOD [...] healed heel and 1st toe ulcers Assessment/Plan Diann Patel is 68 y.o. female with HTN, [...] 0.52/0.43 Left 0/0 [address] available from [facility] for review Plan: LLE angiogram with intervention on 06/21/[address] Curry Images from [facility] requested Continue aspirin, Plavix, Eliquis (Last dose of Eliquis PM of 06/18) Continue atorvastatin Percocet x10 tablets sent to patients pharmacy for pain control until procedure on 06/21/24 Patient seen and discussed with attending, Dr. Francine Escamilla DO documented in this [facility] Work Phone: [phone]) [phone] Instructions* Patient Instructions* Margareth Leblanc MD - 06/15/2024 3:00 PM EDT Images from the original note were not included. It was a pleasure taking care of you today and appreciate your seeing us at our [facility] [facility]. Today's plan is as follows: Continue [...] blood flow to your left leg at [facility] ([id number] [facility]) with Dr. Escamilla The laboratory miller staff will call you the day before the procedure for further instructions and time of the procedure. The phone number to reach them at is [phone] (M-F, 6:30 am -5 pm) You will [...] call the office with any questions at [phone], press option 1 If you need coordinating your appointments and testing you can do these at the front office supervisor or by calling my office shortly after your visit. documented in this [facility] Work Phone: [phone]) [phone] History of Present illness Narrative* Alexis Berry Gilmore, DPM - 12/11/2023 4:30 PM EST Patient: Diann Patel : 1955 PCP: Champ Bell MD SUBJECTIVE This is a 68 y.o. female that presents today for follow-up of dry gangrene type changes and ulceration to her left foot and was previously seen proximally 1 week ago and sent for BRIDGER PVRs at local hospital. Findings were severe to the left leg and patient was transferred to [facility] where she had it angioplasty procedure with increased blood flow noted by patient. She has a type 2 diabeticand presents today for follow up in office. Allergies: Allergies Allergen Reactions Penicillins Hives childhood-swelling Past Medical History: Past Medical History: Diagnosis Date A-fib ([facility]) 2022 with RVR Anxiety Aortic stenosis 06/2022 Carotid artery disease ([facility]) CHF (congestive heart failure) ([facility]) 06/2022 Colon polyp 2016 Diverticulitis DM (diabetes mellitus) ([facility]) HLD (hyperlipidemia) ([facility]) HTN (hypertension) ([facility]) OK (myocardial infarction) ([facility]) NSTEMI, initial episode of care ([facility]) 2022 Medications: Current Outpatient Medications: amLODIPine (Norvasc) [...] positive edema to left foot NEURO: 5.07 [place] Truong monofilament test diminished to digits and forefoot bilaterally 125Hz tuning fork diminished to 1st MPJ bilaterally ORTHO: Minimal pain on palpation to left foot ulcer BRIDGER PVR non readable findings to the left with non pulsatile flow and right of 0.53 DP ASSESSMENT 1. Diabetes mellitus due to underlying condition with diabetic polyneuropathy, unspecified whether nursing home insulin use ([facility]) 2. PVD (peripheral vascular disease) ([facility]) 3. Dry gangrene ([facility]) 4. Foot ulcer, left, with fat layer exposed ([facility]) PLAN Sharp debridement with 15 blade of subcutaneous ulceration to left foot with active bleeding noted and removal and excision of fibrotic and necrotic tissue to wound and DSD applied with neosporin. Ptto continue with Betadine daily Reviewed BRIDGER PVRs and patient is to follow up with [facility] for right foot in near future and continue with wound care until follow up in 1 week Alexis Gilmore DPM documented in this encounterBarton County Memorial HospitalXrefwinrvi76-98-8642 Evaluation note* Encounter Date Diagnosis Assessment Notes [...] office sooner with any issues or concerns. [employer] Other 03-24-2023 NotePROCEDURE: XR WRIST LT MIN 3 V HISTORY: Pain after falling COMPARISON: None. FINDINGS: BONES:No fracture, acute abnormality, or significant arthropathy. SOFT TISSUES:Multiple skin jose within soft tissues lateral to the distal forearm. EFFUSION:None visible. OTHER: Negative. IMPRESSION: 1. No acute bone abnormality. 2. Multifocal mild degenerative joint disease. Electronically authenticated by: GERMAIN COY Date: 2023-01-31 13:10The [facility]Lggilknu36[facility]-0928 Procedure [facility] 01-09-2023 Evaluation note* Encounter Date Diagnosis Assessment Notes Treatment Notes Treatment Clinical Notes Jan, PAD (peripheral artery disease) (ICD-10 - I73.9) Jan,iabetes mellitus due to underlying condition with foot ulcer (ICD- 10 - E08.621) Jan,Non-pressure chronic ulcer of other part of left foot limited to breakdown of skin (ICD-10 - L97.521)This patient is at risk for limb loss. She is a diabetic foot ulcer with severe vascular disease. Irecommending a diagnostic. Possibly therapeutic angiography. This patient likely has multilevel disease including the femoral SFA and tibial location. She may have iliac disease in the right side based on her clinical exam. I do not have the Douglass studies yet. We will reach out to [...] was obtained all her questions were addressed. [employer] Other 08-25-2022 NoteMR#: [id number] I [facility] Pt. Name: Diann Patel Admitted: 2022 Discharged: 07/03/2022 Date of [...] Amaya MD Date Trans: 07/03/2022 11:43 P/mmo [id number] cc: Champ Bell M.D. [address] [place] [id number] note* Encounter Date Diagnosis Assessment Notes Treatment Notes Treatment Clinical Notes Sep, PAD (peripheral artery disease) (ICD-10 - I73.9) Clearly this patient has PAD based on her noninvasive arterial studies and her clinical exam. However she does not appear to be very symptomatic from it. She is not describing severe claudication nordoes she have any tissue loss or rest pain at this time. She should be treated medically at this time with an exercise regimen high intensity statin and aspirin pharmacotherapy. There is no indication for intervention at this time. We will see her back in 6 months for a checkup. She understands agrees the plan all of her questions were addressed. [employer] Other Consult note* Clinical Note Date No Information [facility] Work Phone: Discharge summary* Clinical Note Date No Information [facility] Work Phone: Evaluation noteNo assessment information available [facility] Work Phone: Evaluation note* Diagnosis Diabetes mellitus due to underlying condition with diabetic polyneuropathy, unspecified whether terminal carman insulin use ([facility] Primary PVD (peripheral vascular disease) ([facility]) Unspecified peripheral vascular disease Dry gangrene ([facility]) Foot ulcer, left, with fat layer exposed ([facility]) documented in this encounter [facility] HealthcareEvaluation note* Diagnosis Onset Date Resolution Status Peripheral artery disease acute [facility] Work Phone: Evaluation note* Diagnosis Pseudophakia- Primary Lens replaced by other means documented in this encounter [facility] HealthcareEvaluation note* Diagnosis Pseudophakia- Primary Lens replaced by other means Cataract mature, total senile Total or mature senile cataract documented in this encounter [facility] HealthcareEvaluation note* Diagnosis Pseudophakia- Primary Lens replaced by other means documented in this encounter [facility] HealthcareEvaluation note* Diagnosis Pseudophakia- Primary Lens replaced by other means Diabetes mellitus due to underlying condition with diabetic polyneuropathy, unspecified whether terminal carman insulin use ([facility] Primary Pain due to onychomycosis of toenails of both feet Dry gangrene ([facility]) PVD (peripheral vascular disease) ([facility]) Unspecified peripheral vascular disease documented in this encounter [facility] HealthcareEvaluation note* Diagnosis Acute asthmatic bronchitis ([facility] Primary Unspecified asthma, with exacerbation Type 2 diabetes mellitus with hyperglycemia, with long-term current use of insulin ([facility]) Polyneuropathy due to type 2 diabetes mellitus ([facility]) Acute cough Dry gangrene ([facility])- Primary PVD (peripheral vascular disease) ([facility]) Unspecified peripheral vascular disease Diabetes mellitus due to underlying condition with diabetic polyneuropathy, unspecified whether terminal carman insulin use ([facility]) Pain due to onychomycosis of toenails of both feet documented in this encounter [facility] HealthcareEvaluation note* Diagnosis Dry gangrene ([facility] Primary PVD (peripheral vascular disease) ([facility]) Unspecified peripheral vascular disease Diabetes mellitus due to underlying condition with diabetic polyneuropathy, unspecified whether terminal carman insulin use ([facility]) Pain due to onychomycosis of toenails of both feet documented in this encounter [facility] HealthcareEvaluation note* Diagnosis Acute asthmatic bronchitis ([facility] Primary Unspecified asthma, with exacerbation Need for vaccination Need for prophylactic vaccination and inoculation against unspecified single disease Hypotension, unspecified hypotension type documented in this encounter [facility]* Diagnosis Pseudophakia- Primary Lens replaced by other means documented in this encounter [facility] HealthcareEvaluation note* Diagnosis PAD (peripheral artery disease) ([facility] Primary Unspecified peripheral vascular disease PAD (peripheral artery disease) ([facility]) Unspecified peripheral vascular disease S/P peripheral artery angioplasty Other postprocedural status Atherosclerosis of [place] arteries of extremities with intermittent claudication, left leg ([facility]) Atherosclerosis of [place]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 with ulceration of other part of foot (Multi) Acute pain PAD (peripheral artery disease) ([facility] [facility] [place] Unspecified peripheral vascular disease documented in this encounter [facility] Work Phone: Evaluation note* Diagnosis PAD (peripheral artery disease) ([facility] [place])- Primary Unspecified peripheral vascular disease Anemia, unspecified type documented in this encounter [facility] Work Phone: Evaluation note* Diagnosis PAD (peripheral artery disease) ([facility] [place]) Unspecified peripheral vascular disease S/P peripheral artery angioplasty Other postprocedural status documented in this encounter [facility] Work Phone: Evaluation note* Diagnosis S/P peripheral artery angioplasty- Primary Other postprocedural status PAD (peripheral artery disease) ([facility] [place]) Unspecified peripheral vascular disease documented in this encounter [facility] Work Phone: Evaluation note* Diagnosis Dry gangrene ([facility] [place] Primary PVD (peripheral vascular disease) ([facility] [place]) Unspecified peripheral vascular disease Diabetes mellitus due to underlying condition with diabetic polyneuropathy, unspecified whether terminal carman insulin use ([facility] [place]) Onychomycosis Dermatophytosis of nail Toe pain, bilateral documented in this encounter [facility]* Diagnosis Cataract mature, total senile- Primary Total or mature senile cataract documented in this encounter [facility]* Diagnosis Heel spur, right- Primary Diabetes mellitus due to underlying condition with diabetic polyneuropathy, unspecified whether terminal carman insulin use ([facility] [place]) Pain due to onychomycosis of toenails of both feet Onychomycosis Dermatophytosis of nail PVD (peripheral vascular disease) ([facility] [place]) Unspecified peripheral vascular disease Achilles tendinitis, right leg Contracture of right ankle documented in this encounter [facility]* Diagnosis Heel spur, right- Primary Achilles tendinitis, right leg Contracture of right ankle documented in this encounter [facility]* Diagnosis Paroxysmal atrial fibrillation ([facility])- Primary Atrial fibrillation Benign essential hypertension ([facility]) Essential hypertension, benign Type 2 diabetes mellitus with hyperglycemia, with long-term current use of insulin ([facility]) 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 ([facility]) S/P CABG x 4 Postsurgical aortocoronary bypass status Encounter for screening mammogram for malignant neoplasm of breast Type 2 diabetes mellitus with foot ulcer (CODE) ([facility]) Non-pressure chronic ulcer of other part of left foot with fat layer exposed ([facility]) documented in this encounter [facility]* Diagnosis Type 2 diabetes mellitus with hyperglycemia, with long-term current use of insulin ([facility]) documented in this encounter [facility]* Diagnosis 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 associated with type 2 diabetes mellitus (CMS/HCC)- Primary 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 ([facility]) Epiretinal membrane (ERM) of both eyes Dry eyes Unspecified tear film insufficiency Achilles tendinitis, right leg- Primary Contracture of right ankle Diabetes mellitus due to underlying condition with diabetic polyneuropathy, unspecified whether nursing home insulin use ([facility]) Pain due to onychomycosis of toenails of both feet PVD (peripheral vascular disease) ([facility]) Unspecified peripheral vascular disease documented in this encounter [facility]* Diagnosis Onset Date Resolution Status Admit Date Weakness acuteApril 2024 6:24pm [facility] Work Phone: Evaluation note* Diagnosis Encounter for screening mammogram for breast cancer- Primary Type 2 diabetes mellitus with hyperglycemia, with long-term current use of insulin ([facility]) Rheumatoid arthritis, unspecified Vitreous hemorrhage, left eye ([facility]) Vitreous hemorrhage Vitreous hemorrhage, right eye ([facility]) Vitreous hemorrhage Atherosclerosis of [place] arteries of right leg with ulceration of thigh ([facility]) documented in this encounter [facility]* Diagnosis Contracture of right ankle- Primary Achilles tendinitis, right leg Diabetes mellitus due to underlying condition with diabetic polyneuropathy, unspecified whether terminal carman insulin use ([facility]) Pain due to onychomycosis of toenails of both feet documented in this encounter [facility]* Diagnosis Medicare annual wellness visit, subsequent- Primary 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 ([facility]) Benign essential hypertension ([facility]) Essential hypertension, benign Diverticulosis of colon Diverticulosis of colon (without mention of hemorrhage) Generalized anxiety disorder ([facility]) Generalized anxiety disorder Irritable bowel syndrome with both constipation and diarrhea Mixed hyperlipidemia ([facility]) Mixed hyperlipidemia Paroxysmal atrial fibrillation ([facility]) Atrial fibrillation Peripheral vascular disease ([facility]) Unspecified peripheral vascular disease Polyneuropathy due to type 2 diabetes mellitus ([facility]) Poorly controlled diabetes mellitus ([facility]) Type II or unspecified type diabetes mellitus without mention of complication, not stated as uncontrolled 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 associated with type 2 diabetes mellitus ([facility]) Type 2 diabetes mellitus with hyperglycemia, with long-term current use of insulin ([facility]) Osteopenia, unspecified location Asthma without status asthmaticus without complication, unspecified asthma severity, unspecified whether persistent ([facility]) Arteriosclerosis of arterial coronary artery bypass graft ([facility]) Estrogen deficiency Other ovarian failure Chronic migraine with aura without status migrainosus, not intractable ([facility]) Overweight 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 ([facility]) 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, with long-term current use of insulin, unspecified retinopathy severity ([facility]) Bilateral carotid artery stenosis Occlusion and stenosis of carotid artery without mention of cerebral infarction New onset of congestive heart failure ([facility]) NSTEMI (non-ST elevated myocardial infarction) ([facility]) Acute myocardial infarction, subendocardial infarction, episode of care unspecified Screening for thyroid disorder Routine general medical examination at health care facility Routine general medical examination at a health care facility Screening for colon cancer Special screening for malignant neoplasms, colon documented in this encounter [facility]* Diagnosis Iron deficiency anemia, unspecified iron deficiency anemia type- Primary [facility] Iron deficiency anemia, unspecified iron deficiency anemia type- Primary History of colon polyps Upper abdominal pain Screening for colon cancer Special screening for malignant neoplasms, colon Chronic anticoagulation Encounter for long-term (current) use of anticoagulants documented [facility]* Diagnosis Achilles tendinitis, right leg- Primary Contracture of right ankle Diabetes mellitus due to underlying condition with diabetic polyneuropathy, unspecified whether terminal carman insulin use ([facility]) Pain due to onychomycosis of toenails of both feet documented in this encounter [facility]* Diagnosis History of colon polyps- Primary Upper abdominal pain Iron deficiency anemia, unspecified iron deficiency anemia type Chronic anticoagulation Encounter for long-term (current) use of anticoagulants Other chronic gastritis without hemorrhage documented in this encounter [facility]* Diagnosis VH (vitreous hemorrhage), right ([facility])- Primary Dry eyes Unspecified tear film insufficiency documented [facility] this [facility]* Diagnosis Contracture of right ankle- Primary Achilles tendinitis, right leg Diabetes mellitus due to underlying condition with diabetic polyneuropathy, unspecified whether nursing home insulin use ([facility]) documented in this encounter [facility]* Diagnosis Preoperative clearance- Primary Unspecified pre-operative examination Type 2 diabetes mellitus with hyperglycemia, with long-term current use of insulin (HCC) 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, with long-term current use of insulin, unspecified retinopathy severity (HCC) Asthma without status asthmaticus without complication, unspecified asthma severity, unspecified whether persistent ([facility]) Major depressive disorder, single episode, in full remission Major depressive disorder, single episode in full remission Contracture of right ankle- Primary Achilles tendinitis, right leg documented in this encounter [facility]* Diagnosis Contracture of right ankle- Primary Achilles tendinitis, right leg Type 2 diabetes mellitus with hyperglycemia, with long-term current use of insulin ([facility]) documented in [facility]* Diagnosis Abnormal breast exam- Primary Other sign and symptom in breast Encounter for screening mammogram for malignant neoplasm of breast Type 2 diabetes mellitus with diabetic chronic kidney disease (HCC) Chronic kidney disease, stage 3b ([facility]) Acute non-recurrent pansinusitis Achilles tendinitis, right leg- Primary Diabetes mellitus due to underlying condition with diabetic polyneuropathy, unspecified whether terminal carman insulin use ([facility]) Pain due to onychomycosis of toenails of both feet documented in this encounter [facility]* Diagnosis Achilles tendinitis, right leg- Primary Contracture of right ankle Type 2 diabetes mellitus with hyperglycemia, with long-term current use of insulin (HCC) Pain due to onychomycosis of toenails of both feet documented in this encounter [facility]* Diagnosis Acute non-recurrent pansinusitis- Primary documented in this [facility]* Clinical Note Date No Information [facility] Work Phone: Hisipoe general Narrative - Reported* Type Description Date Medical History carotid stenosis Medical HistorydiverticulitisMedical HistoryMIMedical HistoryDMMedical History hyperlipidemiaMedical HistoryHTNSurgical HistorycholecystectomySurgical History tonsillectomySurgical [id number] Historyhernia repairSurgical History appendectomySurgical Historyquad [id number] Historysee surgical [employer] Other Hispfeu general Narrative - Reported* Type Description Date Medical History carotid stenosis Medical HistorydiverticulitisMedical HistoryMIMedical HistoryDMMedical History hyperlipidemiaMedical HistoryHTNSurgical HistorycholecystectomySurgical History tonsillectomySurgical [id number] Historyhernia repairSurgical History appendectomySurgical Historyquad [id number] HistoryCardiac [id number] Hospitalization Historysee surgical [employer] Other History of Present illness Narrative* Teena [...] vision, questions or concerns. [facility] * Teena Delcid DO - 09/17/2024 9:30 AM EST Images from the original note were not included. Assessment/Plan Diagnoses and all orders for this visit: Pseudophakia - s/p CE OS (POD #7): Patient provided with post-op form. Instructed to continue drops. Discontinueeye shield. Instructed to call immediately with increased pain, redness, decreased vision, questions or concerns. [facility] * Dale Cronin MD - 06/20/2025 11:00 AM EDT Images from the original note were not included. The patient is status post EGD and colonoscopy. Colonoscopy was normal. EGD showed minimal gastritis on biopsy. H pylori negative. The patient is without complaints. She is eating. She is moving her bowels. She states her bowels are moving better than even before the procedure. She denies blood in his stool. Examination, she is awake alert and in no acute distress. Abdomen is soft. 1. History of colon polyps 2. Upper abdominal pain 3. Iron deficiency anemia, unspecified iron deficiency anemia type 4. Chronic anticoagulation 5. Other chronic gastritis without hemorrhage Patient already is on Protonix. She can continue this. The patient probably does not require another screening colonoscopy. She will be discharged from the office continue to follow with her primary care physician. [facility] Additional Instructions DISDISCHARGE INSTRUCTIONS FOR [...] [facility] [place] [facility] AT [phone]: -If excessive bleeding should occur from the [...] Avandament for the next two days.] [ ][facility] Work Phone: Hospital Discharge instructions Additional Instructions Resume Eliquis in 3 days.[facility] Work Phone: Hospital Discharge instructions Additional Instructions DISCHARGE INSTRUCTIONS FOR PROCEDURE. Podiatry, Dr. Gilmore -If you need pain pills, start before pain becomes intense. Antibiotics and pain pills are frequently less upsetting to your stomach if you take them with food such as crackers or bread. -If you having excessive or persistent pain, swelling, bleeding, nausea, vomiting, or any other problems, you should first call your surgeon for advice. If you are unable to contact your surgeon, seek help from a hospital emergency room. If you were given drugs to make you drowsy and or pain medication, follow these instructions: -You should spend the remainder of the day and evening resting. -You should not attempt to walk, including going to the bathroom, without assistance. You may be lightheaded from the medications you received. -Eat light today to avoid nausea. You should be able to return to your normal diet 24 to 36 hours after surgery. -For the next 24 hours you should not consume alcohol, attempt to drive, use any power tools, sign important documents or make important personal or business decisions. After that do so only if you feel perfectly normal and alert. -Follow carefully any verbal or written instructions your surgeon may have given you. SURGEON S WRITTEN INSTRUCTIONS -Keep bandage clean and dry and DO NOT REMOVE until Friday -Keep foot elevated -Apply ice to back of ankle, one hour off, until first office visit -partial weight bearing to Post-operative foot with post op shoe or walking boot -Take pain medications as directed -Do not be alarmed if you notice slight bleeding on the bandage, this is normal. -Report any increase in swelling to Dr. Gilmore immediately -Resume regular diet Call the office if you develop: -Persistent bleeding -Temperature above 100 degrees Fahrenheit. -Persistent vomiting -Calf pain or shortness of breath -Redness or pus at operative site FOLLOW UP Phone numbers: Office [phone] [facility]ddfbpzzl[facility] Work Phone: Progress note* Clinical Note Date No Information [facility] Work Phone: reason for referral (narrative)* Reason For Referral No Information [facility] Work Phone: Relcvm for referral (narrative)No reason for referral information availableJoint [facility] District [facility] Work Phone: Reason for visit Narrative* Auth/CertSpecialty Diagnoses / ProceduresReferred By ContactReferred To Contact Diagnoses PAD (peripheral artery disease) ([facility] PAD (peripheral artery disease) ([facility]) [I73.9] Procedures CHG ANGIOGRAPHY EXTREMITY UNILATERAL RS&I Lower Extremity Angiogram and Intervention Nely Curry MD [address] [facility] [place] [address] [facility] [id number] [place] [address] Referral IDStatusReasonStart DateExpiration DateVisits RequestedVisits [id number] [facility] Work Phone: Summary Purpose Family History Relationship Condition Age at Onset Recorded Date/T ivaan Not Specified No pertinent family history Unknown Family Member Type Diagnosis Age At Onset Problem (finding)Family history of hypertensionProblem (finding)Family history of cataractProblem (finding)Family history of Cardiovascular diseaseProblem (finding)Family history of Diabetes mellitus Relationship Condition Age at Onset Recorded Date/T ivana mother Malignant neoplasm of breast Unknown Type 2 diabetes mellitusUnknownfatherMyocardial infarctionUnknownMultiple sclerosisUnknownsisterMalignant neoplasmUnknownbrotherMyocardial infarction UnknownbrotherMultiple sclerosisUnknownbrotherAlcohol abuseUnknownsister Myocardial infarctionUnknown Advance Directives Advance Directive Response Recorded Date/ Time Advance Directives No January 09 9:00am Advance Directive Response Recorded Date/ Time Advance Directives No January 09 10:00am Directive Yes / No Effective Date File Name No Information Chief Complaint and Reason for Visit Chief Complaint Admit Date Back spasms February 15, 2025 6:24 pm R92.8 March 10, 2025 2:14pm Reason for Visit Admit Date Abdominal pain February 15, 2025 6:24 pm Weakness February 15, 2025 6:24 pm Chief Complaint Admit Date Back spasms February 15, 2025 6:24 pm Chief Complaint Diabetic Foot Ulcer, PAD Left Leg Chief Complaint Diabetic Foot Ulcer, PAD Left Leg i70.212 Chief Complaint i73.9 i96 e08.42 Chief Complaint i73.9 i96 e08.42 GO OVER PVR'S PVD Peripheral vascular diseaseReason for VisitPeripheral artery disease Chief Complaint i73.9 i96 e08.42 GO OVER PVR'S PVD Peripheral vascular disease Z01.818Reason for VisitPeripheral artery disease Reason for Visit Admit Date Weakness February 15, 2025 6:24 pm Chief Complaint Admit Date Anemia, Upper Abdominal Pain, Hx Colon P olyps June 09, 2025 8:26am Chief Complaint Admit Date Anemia, Upper Abdominal Pain, Hx Colon P olyps June 09, 2025 8:26am Achilles Tendonitis Right Ankle Septembe r 2024 12:09pm Chief Complaint Admit Date Anemia, Upper Abdominal Pain, Hx Colon P olyps June 09, 2025 8:26am Achilles Tendonitis Right Ankle Septembe r 2024 12:09pm Achilles Tendonitis Right Ankle Septembe r 2024 10:05am Reason for Referral SpecialtyDiagnoses / ProceduresReferred By ContactReferred To ContactCardiology Diagnoses PAD (peripheral artery disease) ([facility]) S/P peripheral artery angioplasty Procedures Vascular US Ankle Brachial Index (BRIDGER) Without Exercise Terri Sosa APRN-CORPORATE PLANNER [address] [place] [address] Referral IDStatusReasonStart DateExpiration DateVisits RequestedVisits [id number] Perform Procedure Additional Source Comments REASON FOR VISIT (unrecogniz ed section and content) ReasonCommentsConsultPVR F/SPsqyrzGnggyovsDisx-fmEkdqwgFzukuzjdJshi-rpPyjfuuar ReasonCommentsPost-op Follow-upReasonCommentsDiabetesReasonCommentsDM Foot Care Dm nail careReasonCommentsNew Patient VisitSpecialtyDiagnoses / Procedures Referred By ContactReferred To ContactCardiology Diagnoses PAD (peripheral artery disease) ([facility] [place]) S/P peripheral artery angioplasty Procedures Vascular US Ankle Brachial Index (BRIDGER) Without Exercise Terri Sosa APRN-CORPORATE PLANNER [address] [place] [id number] Referral IDStatusReasonStart DateExpiration DateVisits RequestedVisits [id number] Perform Procedure [id number]-haOowsqiBaopizteFS Foot CareDM Nails ReasonCommentsCataractReasonCommentsFollow-upRT HEEL SPUR CHECKReasonCommentsMed RefillReasonCommentsFollow-upReasonCommentsConsultColonoscopy- Hx of colon polyps- Last colonoscopy was 2020 Debi Merrill at [facility] and she wants to have pt get an upper and lower scope done but in [place]. Pt would rather have thisdone here.SpecialtyDiagnoses / ProceduresReferred By Contact Referred To ContactGeneral Surgery Diagnoses Screening for colon cancer Procedures [place] OFFICE/OUTPATIENT [facility] MDM 60 MINUTES Johnna Cedeño NP [address] [facility] [address] [place] [address] Phone: tel: fax: Dale Fox MD [address] [facility] [address] [place] [address] Phone: tel: fax: Referral IDStatusReasonStart DateExpiration DateVisits RequestedVisits [id number] Specialty Services Required [id number] po EGD/ColonoscopyReasonCommentsEye Pain ReasonCommentsConsent Or InstructionspreopReasonCommentsPost-op5d s/p rt tenotomyReasonCommentsDM Foot Care INFORMATION SOURCE (unrecogn ized section and content) DATE CREATED AUTHOR 07/13/2022 [facility] DATE CREATED AUTHOR AUTHOR'S ORGANIZ ATION 02/04/2023 [facility] DATE CREATED AUTHOR AUTHOR'S ORGANIZ ATION 07/26/2024 [facility] DATE CREATED AUTHOR AUTHOR'S ORGANIZ ATION 07/26/2024 [facility] DATE CREATED AUTHOR AUTHOR'S ORGANIZ ATION 06/01/2025 [facility] DATE CREATED AUTHOR AUTHOR'S ORGANIZ ATION 07/23/2025 [facility] DATE CREATED AUTHOR AUTHOR'S ORGANIZ ATION 08/16/2025 [facility] DATE CREATED AUTHOR AUTHOR'S ORGANIZ ATION 09/12/2025 [facility] DATE CREATED AUTHOR AUTHOR'S ORGANIZ ATION 09/21/2025 [facility] EPIC Care Teams (unrecognized sec tion and content) Team Status: Active Member Role Status Dates Champ Bell II MD Primary Care Provider Active Team Status: Inactive Member Role Status Dates Champ Bell II MD Primary Care Provider Active Start: February 15, 2025 End: February 16, 2025Rahul Dee ProviderActiveStart: February 15, 2025 End: February 16, 2025Edvin Casper , MDAdmit Provider, Attending Provider ActiveStart: February 15, 2025 End: February 16, 2025 Team Status: Active Member Role Status Dates Champ Bell II MD Primary Care Provider Active Start: February 15, 2025 Rahul Dee ProviderActiveStart: February 15, 2025 Edvin Casper , MDAdmit Provider, Attending ProviderActiveStart: February 15, 2025 Team Status: Inactive Member Role Status Gertrude Bell II MD Primary Care Provider Active Vannesa Castaneda ProviderActiveTeam MemberRelationship SpecialtyStart DateEnd Date Champ Bell MD [address] [place] [address] PCP - GeneralInternal Medicine03/18/23 Team Status: Inactive Member Role Status Gertrude Bell II MD Primary Care Provider Active Start: May 17, 2024 End: May 17, 2024Santo Guo ProviderActiveStart: May 17, 2024 End: May 17, 2024 Team Status: Inactive Member Role Status Gertrude Bell II MD Primary Care Provider Active Start: May 18, 2024 End: May 18, 2024Vannesa Morrell ProviderActiveStart: May 18, 2024 End: May 18, 2024 Team Status: Inactive Member Role Status Gertrude Bell II MD Primary Care Provider Active Start: May 19, 2024 End: May 19, 2024Vannesa Morrell ProviderActiveStart: May 19, 2024 End: May 19, 2024 Team Status: Active Member Role Status Gertrude Bell II MD Primary Care Provider Active Start: May 19, 2024 Vannesa Morrell Provider, Other ProviderActiveStart: May 19, 2024 Team Status: Inactive Member Role Status Gertrude Bell II MD Primary Care Provider Active Start: May 27, 2024 End: May 27, 2024AlfredoVannesa Neville ProviderActiveStart: May 27, 2024 End: May 27, 2024 Name Effective Dates (start - stop) Status Members No Information Team MemberRelationshipSpecialtyStart DateEnd Date Champ Bell MD [address] [place] [address] PCP - GeneralInternal Medicine03/18/23 Champ Bell MD [address] [place] [address] PCP - O [facility]01/09/24FridayMagalie LPN [address] [place] [address] Licensed Practical NurseFami Medicine02/27/24Team MemberRelationshipSpecialty Start DateEnd Date Champ Bell MD [address] [place] [address] [facility]/18/23 Champ Bell MD [address] [place] [address] PCP - [facility]01/09/24FridayMagalie LPN [address] [place] [address] Licensed Practical NurseFamily Medicine02/27/24Team MemberRelationshipSpecialty Start DateEnd Date Champ Bell MD [address] [place] [address] PCP - GeneralInternal Medicine03/18/23 Champ Bell MD [address] [place] [address] PCP - [facility]01/09/24Friday, ABDELRAHMAN MejiasN [address] [place] [address] Licensed Practical NurseFamily Medicine02/27/24Team MemberRelationshipSpecialty Start DateEnd Date Champ Bell MD [address] [place] [address] PCP - GeneralInternal Medicine03/18/23 Champ Bell MD [address] [place] [address] PCP - [facility]01/09/24Friday, ABDELRAHMAN MejiasN [address] [place] [address] [facility]02/27/24Te MemberRelationshipSpecialty Start DateEnd Date Champ Bell MD [address] [place] [address] PCP - GeneralInternal Medicine03/18/23 Champ Bell MD [address] [place] [address] PCP - [facility]01/09/24Friday, Magalie [employer] [address] [place] [address] Licensed Practical NurseFamily Medicine02/27/24Team MemberRelationshipSpecialty Start DateEnd Date Champ Bell MD [address] [place] [address] PCP - GeneralInternal Medicine03/18/23 Champ Bell MD [address] [place] [address] PCP - [facility]01/09/24Friday, Magalie, [employer] [address] [place] [address] [facility] Medicine02/27/24Team MemberRelationshipSpecialty Start DateEnd Date Champ Bell MD [address] [place] [address] [facility]23 Champ Bell MD [address] [place] [address] [facility]01/09/24Friday, Magalie, [employer] [address] [place] [address] [facility]02/27/24Team MemberRelationshipSpecialty Start DateEnd Date Champ Bell MD [address] [place] [address] [facility] - [facility]03/18/23 Champ Bell MD [address] [place] [address] PCP - [facility]01/09/24Friday, Magalie, [employer] [address] [place] [address] [facility] Medicine02/27/24Team MemberRelationshipSpecialty Start DateEnd Date Champ Bell MD [address] [place] [address] PCP - GeneralInternal Medicine03/18/23 Champ Bell MD [address] [place] [address] PCP - [facility]01/09/24Friday, Magalie, [employer] [address] [place] [address] Licensed Practical NurseFamily Medicine02/27/24Team MemberRelationshipSpecialty Start DateEnd Date Champ Bell MD [address] [place] [address] PCP - GeneralInternal Medicine03/18/23 Champ Bell MD [address] [place] [address] PCP - [facility] Reach01/09/24Friday, JAMESON Mejias [address] [place] [address] Licensed Practical NurseFamily Medicine02/27/24Team MemberRelationshipSpecialty Start DateEnd Date Noe Conklin DO [address] [facility] [address] [place] [address] PCP - GeneralFamily MedicineTeam MemberRelationshipSpecialtyStart DateEnd Date Champ Bell MD [address] [place] [address] PCP - GeneralInternal Medicine03/18/23 Champ Bell MD [address] [place] [address] PCP - O [facility]01/09/24Friday, Magalie, [employer] [address] [place] [address] Licensed Practical NurseFaboston [facility] Medicine02/27/24Team MemberRelationshipSpecialty Start DateEnd Date Champ Bell MD [address] [place] [address] P[facility] - [facility]03/18/23 Champ Bell MD [address] [place] [address] [facility] Reach01/09/24Friday, Magalie, [employer] [address] [place] [address] Licensed Practical NurseSt[facility]02/27/24Te MemberRelationshipSpecialty Start DateEnd Date Champ Bell MD [address] [place] [address] P[facility] - [facility]03/18/23 Champ Bell MD [address] [place] [address] [facility] - [facility]01/09/24Friday, Magalie, [employer] [address] [place] [address] [facility] Medicine02/27/24Te MemberRelationshipSpecialty Start DateEnd Date Champ Bell MD [address] [place] [address] PCP - GeneralInternal Medicine03/18/23 Champ Bell MD [address] [place] [address] PCP - [facility]01/09/24FridayMagalie LPN [address] [place] [address] Licensed Practical NurseFamily Medicine02/27/24Team MemberRelationshipSpecialty Start DateEnd Date Champ Bell MD [address] [place] [address] PCP - GeneralInternal Medicine03/18/23 Champ Bell MD [address] [place] [address] PCP - O [facility]01/09/24FridayMagalie LPN [address] [place] [address] Licensed Practical NurseFamily Medicine02/27/24Team MemberRelationshipSpecialty Start DateEnd Date Champ Bell MD [address] [place] [address] PCP - GeneralInternal Medicine03/18/23 Champ Bell MD [address] [place] [address] PCP - O [facility]01/09/24 Lauren Finn, RN Licensed Practical NurseFamily Medicine12/17/24Team MemberRelationshipSpecialty Start DateEnd Date Champ Bell MD [address] [place] [address] PCP - GeneralInternal Medicine03/18/23 Champ Bell MD [address] [place] [address] PCP - [facility]01/09/24 Lauren Finn, WARD Licensed Practical Nurse[facility] Medicine12/17/24Te MemberRelationshipSpecialty Start DateEnd Date Champ Bell MD [address] [place] [address] P[facility] - [facility]03/18/23 Champ Bell MD [address] [place] [address] [facility] - [facility]01/09/24 Lauren Finn, WARD [facility] Medicine12/17/24Te MemberRelationshipSpecialty Start DateEnd Date Champ Bell MD [address] [place] [address] [facility] - [facility]03/18/23 Champ Bell MD [address] [place] [address] [facility]01/09/24 Lauren Finn RN Licensed [facility] Medicine12/17/24Te MemberRelationshipSpecialty Start DateEnd Date Champ Bell MD [address] [place] [address] PCP - [facility]03/18/23 Champ Bell MD [address] [place] [address] PCP - [facility]01/09/24 Lesa Browne, [facility] 02/01/25Team MemberRelationshipSpecialtyStart DateEnd Date Champ Bell MD [address] [place] [address] PCP - GeneralInternal Medicine03/18/23 Champ Bell MD [address] [place] [address] PCP - [facility]01/09/24 Lesa Browne, [facility] 02/01/25Team MemberRelationshipSpecialtyStart DateEnd Date Champ Bell MD [address] [place] [address] [facility] - [facility]03/18/23 Champ Blel MD [address] [place] [address] PCP - [facility]CO [facility]01/09/24 Lesa Browne, [facility] 02/01/25Team MemberRelationshipSpecialtyStart DateEnd Date Champ Bell MD [address] [place] [address] [facility] - [facility]03/18/23 Champ Bell MD [address] [place] [address] PCP - [facility]CO [facility]01/09/24 Lesa Browne, [facility] 02/01/25Team MemberRelationshipSpecialtyStart DateEnd Date Champ Bell MD [address] [place] [address] PCP - GeneralInternal Medicine03/18/23 Champ Bell MD [address] [place] [address] PCP - [facility]CO [facility]01/09/24 Lesa Browne [employer] 02/01/25 Team Status: Inactive Member Role Status Dates Champ Bell II MD Primary Care Provid er, Attending Provider Active Start: March 10, 2025 End: March 10, 2025Team MemberRelationshipSpecialtyStart DateEnd Date Champ Bell MD [address] [place] [address] PCP - GeneralInternal Medicine03/18/23 Champ Bell MD [address] [facility] [address] [place] [address] PCP - ACO [facility]01/09/24 Lesa Browne [employer] 02/01/25Team MemberRelationshipSpecialtyStart DateEnd Date Champ Bell MD [address] [facility] [address] [place] [address] [facility] - [facility]03/18/23 Champ Bell MD [address] [facility] [address] [place] [address] PCP - [facility]01/09/24 Lesa Browne [facility] 02/01/25Team MemberRelationshipSpecialtyStart DateEnd Date Charlene Mckinley MD [address] [place] [address] [place] [address] [facility]05/09/25Team MemberRelationshipSpecialtyStart DateEnd Date Champ Bell MD [address] [place] [address] PCP - GeneralInternal Medicine03/18/23 Champ Bell MD [address] [place] [address] PCP - O [facility]01/09/24 Lesa Browne LPN [address] [place] [address] 02/01/25Team MemberRelationshipSpecialtyStart DateEnd Date Champ Bell MD [address] [place] [address] [facility]/18/23 Champ Bell MD [address] [place] [address] PCP - [facility] Reach01/09/24 Lesa Browne LPN [address] [place] [address] 02/01/25 Team Status: Inactive Member Role Status Dates Champ Bell II MD Primary Care Provider Active Start: June 09, 2025 End: June 09Vannesa Hernández ProviderActiveStart: June 09, 2025 End: June 09, 2025Team MemberRelationshipSpecialtyStart DateEnd Date Champ Bell MD [address] [place] [address] [facility] - [facility]03/18/23 Champ Bell MD [address] [place] [address] PCP - [facility]01/09/24 Browne, Lesa, [employer] [address] [place] [address] 02/01/25Team MemberRelationshipSpecialtyStart DateEnd Date Champ Bell MD [address] [place] [address] PCP - GeneralInternal Medicine03/18/23 Champ Bell MD [address] [place] [address] PCP - [facility]01/09/24 Lesa Browne LPN [address] [place] [address] 02/01/25Team MemberRelationshipSpecialtyStart DateEnd Date Champ Bell MD [address] [place] [address] PCP - GeneralInternal Medicine03/18/23 Champ Bell MD [address] [place] [address] PCP - [facility]01/09/24 Lesa Browne LPN [address] [place] [address] 02/01/25Team MemberRelationshipSpecialtyStart DateEnd Date Champ Bell MD [address] [place] [address] PCP - GeneralInternal Medicine03/18/23 Champ Bell MD [address] [place] [address] PCP - [facility]01/09/24 Lesa Browne LPN [address] [place] [address] 02/01/25 Team Status: Inactive Member Role Status Dates Champ Bell II MD Primary Care Provider Active Start: July 19, 2025 End: July 19, 2025Santo Guo ProviderActiveStart: July 19, 2025 End: July 19, 2025Team MemberRelationshipSpecialtyStart DateEnd Date Champ Bell MD [address] [place] [address] PCP - GeneralInternal Medicine03/18/23 Champ Bell MD [address] [place] [address] PCP - [facility]01/09/24 Lesa Browne LPN [address] [place] [address] 02/01/25Team MemberRelationshipSpecialtyStart DateEnd Date Champ Bell MD [address] [place] [address] PCP - GeneralInternal Medicine03/18/23 Champ Bell MD [address] [place] [address] PCP - [facility]01/09/24 Lesa Browne LPN [address] [place] [address] 02/01/25 Team Status: Inactive Member Role Status Dates Champ Bell II MD Primary Care Provider Active Start: July 22, 2025 End: July 22, 2025Santo Guo ProviderActiveStart: July 22, 2025 End: July 22, 2025Team MemberRelationshipSpecialtyStart DateEnd Date Champ Bell MD [address] [place] [address] PCP - GeneralInternal Medicine03/18/23 Champ Bell MD [address] [place] [address] PCP - [facility]01/09/24 Lesa Browne LPN [address] [place] [address] 02/01/25Team MemberRelationshipSpecialtyStart DateEnd Date Champ Bell MD [address] [place] [address] PCP - GeneralInternal Medicine03/18/23 Champ Bell MD [address] [place] [address] PCP - [facility]01/09/24FridayMagalie LPN [address] [place] [address] Licensed Practical NurseFamily Medicine/06/03 Lauren Finn, WARD [address] [place] [address] Licensed Practical NurseFamily Medicine/ Lesa Browne LPN [address] [place] [address] 02/01/25Team MemberRelationshipSpecialtyStart DateEnd Date Champ Bell MD [address] [place] [address] PCP - GeneralInternal Medicine03/18/23 Champ Bell MD [address] [place] [address] PCP - [facility]01/09/24FridayMagalie LPN [address] [place] [address] Licensed Practical NurseFamily Medicine/06/03 Lauren Finn, WARD [address] [place] [address] Licensed Practical NurseFamily Medicine Lesa Browne LPN [address] [place] [address] 02/01/25Team MemberRelationshipSpecialtyStart DateEnd Date Champ Bell MD [address] [place] [address] PCP - GeneralInternal Medicine03/18/23 Champ Bell MD [address] [place] [address] PCP - [facility]01/09/24 Lesa Browne LPN [address] [place] [address] 02/01/25 Goals (unrecognized section and content) Goals may be documented in a n alternate section Scheduled Active and Recently Administ ered Medications (unrecognized section and content) Medication Order// amLODIPine (Norvasc) tablet 10 mg 10 mg, oral, Daily, First dose on Fri06/22/24 at 0900 * 0843 (Given - Provider: Mariely Mcintosh LPN) apixaban (Eliquis) tablet 5 mg 5 mg, oral, 2 times daily, First dose on Fri06/22/24 at 0900 * 0843 (Given - Provider: Mariely Mcintosh LPN) * 2100 (Due) atorvastatin (Lipitor) tablet 80 mg 80 mg, oral, Daily, First dose on Fri06/21/24 at 1745 * 1852 (Given - Provider: Ana Guillen, WARD) * 2100 (Due - Provider: Mariely Mcintosh LPN) carvedilol (Coreg) tablet 25 mg 25 mg, oral, Every 12 hours, First dose on Fri06/21/24 at 1830 * 1852 (Given - Provider: Ana Guillen, WADR) * 0714 (Given - Provider: Massiel Sesay RN) * 1830 (Due) citalopram (CeleXA) tablet 20 mg 20 mg, oral, 2 times daily, First dose on Fri06/21/24 at 2100 * 2030 (Given - Provider: Massiel Sesay RN) * 0843 (Given - Provider: Mariely Mcintosh LPN) * 2100 (Due) clopidogrel (Plavix) tablet 75 mg 75 mg, oral, Daily, First dose on Fri06/22/24 at 0900 * 0843 (Given - Provider: Mariely Mcintosh LPN) furosemide (Lasix) tablet 40 mg 40 mg, oral, Daily before breakfast, First dose on Fri06/22/24 at 0700 * 0847 (Given - Provider: Mariely Mcintosh LPN) gabapentin (Neurontin) capsule 600 mg 600 mg, oral, 2 times daily, First dose on Fri06/21/24 at 2100, Capsules may be opened and sprinkled on food (eg, applesauce, orange juice, pudding * 2030 (Given - Provider: Massiel Sesay RN) * 0842 (Given - Provider: Mariely Mcintosh LPN) * 2100 (Due) hydrALAZINE (Apresoline) tablet 50 mg 50 mg, oral, 2 times daily, First dose on Fri06/21/24 at 2100 * 2030 (Given - Provider: Massiel Sesay RN) * 0842 (Given - Provider: Mariely Mcintosh LPN) * 2100 (Due) insulin lispro (HumaLOG) injection 0-10 Units [...] Blood Glucose is greater than 400 mg/dL * 1745 (Due) * 0800 (Not Given - Provider: Mariely Mcintosh LPN - Reason: Patient/family refused - Comment: pt being discharged) * 1200 (Not Given - Provider: Mariely Mcintosh LPN - Reason: Patient/family refused - Comment: pt dc) * 1700 (Due) lisinopril tablet 20 mg 20 mg, oral, Daily, First dose on Fri06/21/24 at 1745 * 1852 (Given - Provider: Ana Guillen RN) * 0843 (Given - Provider: Mariely Mcintosh LPN) Medication Order/ sodium chloride 0.9% infusion 125 mL/hr, intravenous, Continuous, Starting on Fri06/21/24 at 1745, For 6 hours, Recovery & OnUnit, 6-12 hours post procedure. Post-Procedure Hydration Protocol ACC/AHA/SCAI * 1851 (New Bag - Provider: Ana Guillen, WARD) * 2347 (Rate/Dose Verify - Provider: Massiel Sesay RN) Medication Order/ albuterol 2.5 mg /3 mL (0.083 %) nebulizer solution 3 mL 3 mL, nebulization, 4 times daily PRN, wheezing, shortness of breath, Starting on Fri06/21/24 at 1722 dextrose 50 % injection 12.5 g 12.5 g, intravenous, Every 15 min PRN, For blood glucose 41 to 70 mg/dL, Starting on Fri06/21/24 [id number], May repeat until blood glucose level reaches [...] needed, Starting on Fri06/21/24 at 1435, Intraprocedure * 1435 (Given - Provider: Rodrigo Chaparro RN - Comment: for sedation) * 1616 (Given - Provider: Rodrigo Chaparro RN - Comment: for sedation) * 1637 (Given - Provider: Rodrigo Chaparro RN - [...] IV access & patient is unconscious, NPO nayely unable to eat or drink. glucagon (Glucagen) [...] IV access & patient is unconscious, NPO nayely unable to eat or drink. heparin 1,000 unit/mL injection (CANCELED) As needed, Starting on Fri06/21/24 at 1445, Intraprocedure * 1445 (Given - Provider: Rodrigo Chaparro RN - Comment: verified by Luis Mayers for anticoag) * 1452 (Given - Provider: Rodrigo Chaparro RN - Comment: verified by Luis Mayers for anticoag) * 1557 (Given - Provider: Rodrigo Chaparro RN - Comment: verified by Srinivasa for anticoag) iodixanol (VISIPaque) 320 mg iodine/mL injection (CANCELED) As needed, Starting on Fri06/21/24 at 1639, Intraprocedure * 1639 (Given - Provider: Nely Curry MD) lidocaine PF (Xylocaine) 10 mg/mL (1 %) injection (CANCELED) As needed, Starting on Fri06/21/24 at 1438, Intraprocedure * 1438 (Given - Provider: Braeden Colin MD - Comment: right groin subQ) midazolam (Versed) injection (CANCELED) As needed, Starting on Fri06/21/24 at 1435, Intraprocedure * 1435 (Given - Provider: Rodrigo Chaparro RN - Comment: for sedation) * 1637 (Given - Provider: Rodrigo Chaparro RN - Comment: for sedation) oxyCODONE-acetaminophen (Percocet) 5-325 mg per tablet 1 tablet 1 tablet, oral, Every 6 hours PRN, pain severe (7-10), first line, Starting on Fri06/21/24 at 1722,If ordered PRN for pain, nurse is permitted to administer this medication for higher pain scores based on patient preference? Yes * 2019 (Given - Provider: Massiel Sesay, WARD) protamine injection (COMPLETED) Continuous PRN, Starting on Fri06/21/24 at 1635, Intraprocedure * 1635 (New Bag - Provider: Rodrigo Chaparro RN - Comment: given for heparin reversal) sodium chloride 0.9% infusion (COMPLETED) Continuous PRN, Starting on Fri06/21/24 at 1419, Intraprocedure * 1419 (New Bag - Provider: Rodrigo Chaparro RN) vancomycin (Vancocin) in dextrose 5% IV (CANCELED) Administer over 60 Minutes, Continuous PRN, Starting on Fri06/21/24 at 1534, Intraprocedure * 1534 (New Bag - Provider: Rodrigo Chaparro RN - Comment: for prophylaxis) * 1642 (Stopped - Provider: Cesar Denny RN) Source Comments (unrecognize d section and content) In the event this informatio n is protected by the Federal Confidentiality of Alcohol and Drug Abuse Patient Records regulations: The Federal rules restrict any use of the information to criminally investigate or prosecute any alcohol or drug abuse patient.[facility] FOR RECORDS PERTAINING TO PATIENTS WHO ARE [...] BE BASED ON THE PRIMARY CLINICAL RECORDS. [facility]. provides no warranty or guarantee of the accuracy or completeness of information in this document.
--- NOTE | 2025-11-07 00:45 | ECG_ITS ---
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 Measurements Intervals [place] Rate: 75 P: 52 GA: 140 QRS: 55 QRSD: 86 T: 116 QT: 388 QTc: 417 Interpretive Statements 1100 Sinus rhythm [address] depression [address] & Twave abnormality 9150 abnormal ECG Compared to ECG 02/18/2025 05:26:54 ST (T wave) deviation still present Electronically Signed On 11-07-2025 14:22:48 EST by PANCHITO TRINIDAD M.D.
--- NOTE | 2025-11-07 00:45 | XR_ITS ---
The [address] [address] Patient Name: MARIMAR MCDANIEL MRN: [id number] date: 1955 Sex: F Assigned Patient Location: ER Current Patient Location: [place] Accession/Order Number: [id number] Exam Date: 11/07/2025 01:00 Report Date: 11/07/2025 09:09 At the request of: LINDSAY CHURCH Procedure: XR chest 1V PORTABLE AP ERECT CHEST 0046 hours CLINICAL HISTORY: shortness of breath COMPARISON: 02/18/2025 Evaluation is slightly limited by body habitus. A single median sternotomy wire is seen near the thoracic inlet. The heart is slightly prominent. Mild interstitial changes are seen. There is blunting of the right bilateral costophrenic angle which could be a small pleural effusion. Basilar atelectasis on that side is not excluded. No pneumothorax is noted. Endplate spurring is visualized at the spine. XR/XR chest 1V IMPRESSION: MILD CARDIOMEGALY WITH INTERSTITIAL CHANGES AND POTENTIAL RIGHT EFFUSION. THIS MAY BE FAILURE. CORRELATION IS SUGGESTED. Impression dictated by: Manjula Flannery M.D. 11/07/2025 9:09 AM Dictation Location: [place] [address] Electronically authenticated by: [id number] Y Date: 11/07/2025 09:09
[2025-11-07 00:58] LABS: Hematocrit 29.4 % (36.0-48.0); Hemoglobin 9.3 g/dL (12.0-16.0); Mean Corpuscular HGB Conc 31.6 g/dL (29.9-35.2); Mean Corpuscular Hemoglobin 28.6 pg (26.7-34.0); Mean Corpuscular Volume 90.5 fL (81.0-99.0); Platelet Count 211 10^3/uL (150-450); Red Blood Count 3.25 10^6/uL (4.20-5.40); White Blood Count 13.5 10^3/uL (4.0-11.0)
--- NOTE | 2025-11-07 00:58 | ED.SOB1 ---
HPI - SOB/Dyspnea General Chief Complaint: Shortness of Breath/Dyspnea Stated Complaint: SHortness of breath Time Seen by Provider: 11/07/25 00:43 Source: patient Mode of arrival: ambulance History of Present Illness HPI Narrative: cc - shortness of breath Symptoms started a few days ago but worsened this morning. Pt normally only uses O2 at home at night - but today she felt the need to wear it/use it. EMS gave her a duoneb in route. She remained on O2 on arrival. Pt denies chest pain, fever, chills, cough, ear pain or sore throat. History of CHF and COPD. Related Data Home Medications ?Medication ?Instructions ?Recorded ?Confirmed apixaban 5 mg tablet (Eliquis) 5 mg PO BID 02/08/24 11/07/25 atorvastatin 80 mg tablet 80 mg PO DAILY 02/08/24 11/07/25 citalopram 20 mg tablet 20 mg PO DAILY 02/08/24 11/07/25 gabapentin 300 mg capsule 300 mg PO BID 02/08/24 11/07/25 insulin regular human 100 unit/mL 22 unit subcut AC 02/08/24 11/07/25 injection solution (Novolin R Regular U-100 Insulin) lisinopril 20 mg tablet 20 mg PO DAILY 02/08/24 11/07/25 potassium chloride 20 mEq 20 meq PO DAILY 02/08/24 11/07/25 tablet,extended release(part/cryst) (Klor-Con M) amlodipine 10 mg tablet 10 mg PO .QD 02/18/25 11/07/25 carvedilol 25 mg tablet 25 mg PO Q12H 02/18/25 11/07/25 ferrous sulfate 325 mg (65 mg 325 mg PO .every other day 02/18/25 11/07/25 iron) tablet (Neftaly-Time) furosemide 40 mg tablet 40 mg PO Q12H 02/18/25 11/07/25 hydralazine 25 mg tablet 50 mg PO Q12H 02/18/25 11/07/25 insulin glargine 100 unit/mL (3 50 unit subcut .QHS 02/18/25 11/07/25 mL) subcutaneous pen (Lantus Solostar U-100 Insulin) loratadine 10 mg capsule (Allergy 10 mg PO DAILY 04/11/25 12/29/25 Relief (loratadine)) ondansetron 4 mg disintegrating 4 mg PO TID PRN nausea and vomiting 11/07/25 11/07/25 tablet Previous Rx's ?Medication ?Instructions ?Recorded methocarbamol 500 mg tablet 500 mg PO Q8H PRN pain #20 tabs 05/03/25 Allergies Allergy/AdvReac Type Severity Reaction Status Date / Time Penicillins Allergy Severe Hives Verified 05/03/25 12:51 PFSH PFSH Medical History (Updated 11/07/25 @ 02:53 by Nelson Henao) COPD (chronic obstructive pulmonary disease) ?J44.9 - Chronic obstructive pulmonary disease, unspecified (ICD-10) CHF (congestive heart failure) ?I50.9 - Heart failure, unspecified (ICD-10) Hypoglycemia ?E16.2 - Hypoglycemia, unspecified (ICD-10) EVA (acute kidney injury) ?N17.9 - Acute kidney failure, unspecified (ICD-10) Hypotension ?I95.9 - Hypotension, unspecified (ICD-10) Hypertension ?I10 - Essential (primary) hypertension (ICD-10) Hyperlipidemia ?E78.5 - Hyperlipidemia, unspecified (ICD-10) Colon cancer ?C18.9 - Malignant neoplasm of colon, unspecified (ICD-10) Heart disease ?I51.9 - Heart disease, unspecified (ICD-10) Diabetes ?E11.9 - Type 2 diabetes mellitus without complications (ICD-10) Surgical History (Updated 02/08/24 @ 16:43 by Letty Saleem) History of cholecystectomy ?Z90.49 - Acquired absence of other specified parts of digestive tract (ICD-10) History of hysterectomy ?Z90.710 - Acquired absence of both cervix and uterus (ICD-10) History of partial surgical removal of colon ?Z90.49 - Acquired absence of other specified parts of digestive tract (ICD-10) History of appendectomy ?Z90.49 - Acquired absence of other specified parts of digestive tract (ICD-10) 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.1 - Presence of aortocoronary bypass graft (ICD-10) Family History (Updated 02/08/24 @ 16:45 by Letty Saleem) Father Family history of CHF (congestive heart failure) Family history of myocardial infarction Mother Family history of cancer Family history of diabetes mellitus Sister Family history of diabetes mellitus Family history of cancer Brother Family history of myocardial infarction Family history of stroke Social History (Updated 02/08/24 @ 16:46 by Letty Saleem) Within the past year, how often did you have a drink containing alcohol: never Score interpretation: A score less than 3 is consistent with normal alcohol consumption. Smoking status: Never smoker Non-prescribed substance use: denies use Previous occupational history: retired Highest level of school completed/degree received: 11th grade Are you now , , , , never or living with a partner: In a typical week, how many times do you talk on the telephone with family, friends, or neighbors: twice per week How often do you get together with friends or relatives: twice per week How often do you attend baptism or advent services: never Do you belong to any clubs or organizations such as baptism groups unions, [employer] or athletic groups, or school groups: no Total score: 2 Score interpretation: A score of greater than or equal to 2 indicates the lowest level of social isolation. Little interest or pleasure in doing things: not at all Feeling down, depressed, or hopeless: not at all Feel stressed/tense/nervous/anxious/difficulty sleeping: not at all Do you think of yourself as: straight/heterosexual Gender Identity: female Exam Narrative Exam Narrative: Nurses notes and vital signs reviewed and patient IS hypoxic without O2 - placed on 3Lpm NC O2. afebrile General: mild distress. Skin: Warm, dry, no pallor noted. Eye: Pupils are equal, round and EOMI. No scleral icterus. Ears, Nose, Mouth, and Throat: Oral mucosa is moist Cardiovascular: Regular Rate and Rhythm without murmur, gallop or rub. Respiratory: Accessory muscle use and tachypnea but no respiratory distress. Lungs with wheezing and rhonchi throughout and bibasilar crackles. Chest Wall: no tenderness, crepitus or subcutaneous emphysema Musculoskeletal: normal ROM, no calf or popliteal tenderness, no lower extremity edema/swelling GI: Abdomen is soft, non-distended. Normal bowel sounds. No tenderness to palpation. No rebound, guarding, or rigidity noted. Neurological: A&O x4. No cranial nerve dysfunction observed. No truncal ataxia. Moves all extremities. Sensation intact. Psychiatric: Cooperative and interactive. Normal mood and affect. Constitutional Vital Signs, click to edit/add: Last Vital Signs Temp 99.1 F 11/07/25 00:18 Pulse 73 11/07/25 02:30 Resp 18 11/07/25 02:30 BP 158/72 H 11/07/25 02:25 Pulse Ox 94 L 11/07/25 02:40 O2 Del Method Nasal Cannula 11/07/25 02:40 O2 Flow Rate 3 11/07/25 02:40 Course Vital Signs Vital signs: Vital Signs Temperature 99.1 F 11/07/25 00:18 Pulse Rate 85 11/07/25 00:18 Respiratory Rate 22 H 11/07/25 00:18 Blood Pressure 200/64 H 11/07/25 00:18 Pulse Oximetry 90 L 11/07/25 00:18 Oxygen Delivery Method Room Air 11/07/25 00:18 Temperature 99.1 F 11/07/25 00:18 Pulse Rate 73 11/07/25 02:30 Respiratory Rate 18 11/07/25 02:30 Blood Pressure 158/72 H 11/07/25 02:25 Pulse Oximetry 94 L 11/07/25 02:40 Oxygen Delivery Method Nasal Cannula 11/07/25 02:40 Oxygen Delivery Flow Rate 3 11/07/25 02:40 MDM - SOB/Dyspnea MDM Narrative Medical decision making narrative: The patient was hypoxic and therefore kept on nasal cannula oxygen on arrival. Patient was placed on library monitor and EKG obtained. Blood drawn and sent for evaluation. Portable chest x-ray obtained. Patient was ordered to receive IV Solu-Medrol and an additional albuterol neb treatment. WBC elevated at 13.5 and hemoglobin decreased at 9.3, normal platelet count. Lactate negative. Blood Cultures pending. The patient was ordered to receive IV Levaquin. Renal function essentially normal the BUN is minimally elevated at 20. Troponin is elevated at 61.9. BNP elevated at 4313. Patient was ordered to receive IV Lasix 40 mg. Call was placed to the [facility] cardiology group to discuss this patient's case. I spoke with Dr. Rachel and they agreed that the patient could stay here at [facility] for further treatment as long as the troponin is not rapidly elevating. Second troponin = 66.5. Call placed to Dr Romero to discuss admission to [facility] with cardiac consult to [facility] cardiology group. @ 0255 I discussed this patient's case with Dr Romero, who agreed to admit to the hospitalist service. Consult to cardiology ordered. Pt agreeable to admission. Medical Records Attestation: I reviewed the patient's medical records. Lab Data Attestation: I reviewed the patient's lab results. Labs: Lab Results 11/07/25 11/07/25 11/07/25 Range/Units 00:36 01:30 01:56 WBC 13.5 H (4.0-11.0) 10^3/uL RBC 3.25 L (4.20-5.40) 10^6/uL Hgb 9.3 L (12.0-16.0) g/dL Hct 29.4 L (36.0-48.0) % MCV 90.5 (81.0-99.0) fL MCH 28.6 (26.7-34.0) pg MCHC 31.6 (29.9-35.2) g/dL RDW 14.6 (11.0-15.0) % Plt Count 211 (150-450) 10^3/uL MPV 10.8 (9.5-13.5) fL Seg Neuts % (Manual) 68.0 (43.0-75.0) Lymphocytes % (Manual) 17.0 L (20.5-60.0) % Monocytes % (Manual) 15.0 H (1.7-12.0) % Eosinophils % (Manual) 0.0 L (0.9-7.0) % Basophils % (Manual) 0.0 L (0.2-2.0) % Neutrophils # (Manual) 9.18 H (1.4-6.5) 10^3/uL Lymphocytes # (Manual) 2.29 (1.20-3.80) 10^3/uL Monocytes # (Manual) 2.02 H (0.30-0.80) 10^3/uL Eosinophils # (Manual) 0.00 (0.00-0.70) 10^3/uL Basophils # (Manual) 0.00 (0.00-0.10) 10^3/uL Sodium 138 (136-145) mmol/L Potassium 4.2 (3.5-5.1) mmol/L Chloride 101 (98-107) mmol/L Carbon Dioxide 30.3 (21.0-32.0) mmol/L Anion Gap 10.9 BUN 20.0 H (7.0-18.0) mg/dL Creatinine 0.91 (0.55-1.02) mg/dL Est GFR ( Amer) >60 (>=60 mL/min/1.73m^2) Est GFR (Non-Af Amer) >60 (>=60 mL/min/1.73m^2) BUN/Creatinine Ratio 22.0 Glucose 210 H (74-106) mg/dL Lactate 1.2 (0.4-2.0) mmol/L Calcium 9.1 (8.5-10.1) mg/dL Troponin I High Sens 61.9 H* 66.5 H* (4.0-51.3) pg/mL NT-Pro-B Natriuret Pep 4313.0 H* (<=900.0) pg/mL Influenza Type A Ag Negative Influenza Type B Ag Negative SARS-CoV-2 Ag (CV2AG) Negative (NEGATIVE) ECG Data Attestation: I personally reviewed and interpreted this ECG as follows: Interpretation: EKG interpretation:Emergency Department physician interpretation. Normal sinus rhythm at 75bpm. Normal axis, normal intervals and nonspecific ST-T changes. no ST segment elevation or depression. Discharge Plan Discharge Chief Complaint: Shortness of Breath/Dyspnea Clinical Impression: Congestive heart failure, Leukocytosis, Hypoxia, Pulmonary edema with congestive heart failure Patient Disposition: Admitted As Inpatient Time of Disposition Decision: 00:51
[2025-11-07] MEDS: METHYLPREDNISOLONE SOD SUCC PF 125 MG/2 ML VIAL IVP (01:05)
[2025-11-07] MEDS: ENALAPRILAT DIHYDRATE 1.25 MG/ML VIAL IV (01:06)
[2025-11-07] MEDS: LABETALOL HCL 20 MG/4 ML SYRINGE IVP (01:06)
[2025-11-07 01:11] LABS: Anion Gap 10.9; Blood Urea Nitrogen 20.0 mg/dL (7.0-18.0); Calcium 9.1 mg/dL (8.5-10.1); Carbon Dioxide 30.3 mmol/L (21.0-32.0); Chloride 101 mmol/L (98-107); Estimated GFR (African America >60 (>=60 mL/min/1.73m^2); Estimated GFR (Non-African Ame >60 (>=60 mL/min/1.73m^2); Glucose 210 mg/dL (74-106); Potassium 4.2 mmol/L (3.5-5.1); Sodium 138 mmol/L (136-145)
[2025-11-07 01:18] LABS: Basophils Abs Manual 0.00 10^3/uL (0.00-0.10); Basophils Percent Manual 0.0 % (0.2-2.0); Eosinophils Absolute Manual 0.00 10^3/uL (0.00-0.70); Eosinophils Percent Manual 0.0 % (0.9-7.0); Lymphocytes Absolute Manual 2.29 10^3/uL (1.20-3.80); Lymphocytes Percent Manual 17.0 % (20.5-60.0); Monocytes Absolute Manual 2.02 10^3/uL (0.30-0.80); Monocytes Percent Manual 15.0 % (1.7-12.0); Segmented Neut Absolute Manual 9.18 10^3/uL (1.4-6.5); Segmented Neutrophils % Manual 68.0 (43.0-75.0)
[2025-11-07 01:21] LABS: NT Pro B Type Natriuretic Pept 4313.0 pg/mL (<=900.0)
[2025-11-07] MEDS: ALBUTEROL SULFATE 2.5 MG/3 ML VIAL NEB IH (01:44)
[2025-11-07] MEDS: ACETAMINOPHEN 500 MG TABLET 1000 MG PO (01:53)
[2025-11-07] MEDS: FUROSEMIDE 40 MG/4 ML VIAL IVP ×3 (01:54→19:47)
[2025-11-07 02:03] LABS: Lactate/Lactic Acid 1.2 mmol/L (0.4-2.0)
[2025-11-07] MEDS: LEVOFLOXACIN IN DEXTROSE 5 % 750 MG/150 ML PREMIX 100 MG IV (02:30)
[2025-11-07 02:37] LABS: SARS-CoV-2 Ag NEGATIVE (NEGATIVE)
--- OUTSIDE RECORDS SUMMARY | 2025-11-07 03:24 | XMS_ITS | CCD ---
Author Organization [facility] Care Team Providers Care Entry Level Marketing Representative Name Role Phone Geo Mathew Unavailable CHASE AMAYA Attending Unavailable UNKNOWN, PHYSICIAN Referring Unavailable CHAMP BELL Primary Care Unavailable ANDREW LOONEY Admitting Unavailable MONSE Bell Primary Care Provider MD Geo Mathew Attending Provider [phone] DR CHAMP BELL Primary Care Unavailable SHEPARD [...] Care Provider MONSE Bell Primary Care Provider [phone] KIKA Gilmore Attending Provider [phone] MD Rodrigo Yousif Attending Provider [phone] Darrell BUTT, PhD, Trace Unavailable Unavalucero ESCAMILLA, MARGARETH H Attending Unavailable NOE CNOKLIN Primary Care Unavailable FRANCINE, MARGARETH H Attending Unavailable ROHINIBHARATI KNAPPR Referring Unavailable NOE CONKLIN Primary Care Unavailable JEREMY, TAREK Admitting Unavailable JEREMY TAREK Attending Unavailable NOE CONKLIN Primary Care Unavailable NOE CONKLIN Primary Care Unavailable TABIRTA, TERRI I Referring Unavailable Champ Bell MD Unavailable Friday SKID MACHINE OPERATOR, Magalie Unavailable Unavailable Primary Care Provider UnavailNoe Gonzales DO Primary Care Provider Aakash HOPPER, [facility] Unavailable Darrell BUTT, PhD, Trace Unavailable Cruz Ramírez MD, PhD, Trace Unavailable Cruz Browne SKID MACHINE OPERATOR, Lesa Unavailable Unavailable Champ Bell II Primary Care Provider Ross Martinez APRN Emergency Provider [phone] Edvin Casper MD Admit Provider Edvin Casper MD Attending Provider Champ Bell II Attending Provider [phone] Charlene Mckinley MD Unavailable [phone] Browne SKID MACHINE OPERATOR, Lesa Unavailable MALENFANT, AKIRA E Attending Unavaila VALENTE Hebert Referring Unavailable ARGELIA SOLIZ Referring Unavailable TIFFANIE, HANI Referring Unavailable ARLIN, ABILOA Referring Unavailable KATKORODRIGO Referring Unavailable TIFFANIE, HANI Admitting Unavailable TIFFANIE, SABAI Attending Unavailable ABIOLA OLIVEROS Referring Unavailable MOSAMMY, VALENTE Attending Unavailable MOUKARBEL, VALENTE Attending Unavailable MOUKARBEL, VALENTE Attending Unavailable TIFFANIE, HANI Referring Unavailable CARMELLA ALLEN Attending Unavailable Champ Bell II Primary Care Provider [phone] Dale Fox MD Attending Provider [phone] Alexis Gilmore DPM Attending Provider Vinod Carlos MD, Agustin Unavailable Unavailabl e Champ Bell Attending Unavailable Champ eBll Admitting Unavailable Champ Bell Primary Care Unavailable Alexis Gilmore Admitting Unavailable Alexis Gilmore Attending Unavailable Champ Bell Primary Care Unavailable DoamekporJpEdvin E Admitting Unavailab le Doamekpsofie, Edvin E Attending Unavailab le Champ eBll Primary Care Unavailable Alexis Gilmore Admitting Unavailable Alexis Gilmore Attending Unavailable Fermin Champ Primary Care Unavailable Dale Fox Admitting Unavailable Dale Fox Attending Unavailable Fermin Champ Primary Care Unavailable Vinod Carlos MD, Agustin Unavailable Unavailabl e Friday SKID MACHINE OPERATOR, Magalie Unavailable Lauren Finn RN Unavailable Trace [...] DELCID Attending Unavailable JOHNNA CEDEÑO Attending Unavailable ALXEIS GILMORE Attending Unavailable JOHNNA CEDEÑO Attending Unavailable [...] of OnsetReaction(s) Facility (1 source)Penicillin [facility] AllergyhivesN[facility] Other (7 sources)Penicillins; Translations: [PENICILLINS]Drug allergy (disorder) 55-76-9885RpgfzChhAvita [facility] (8 sources)Penicillin; Translations: [PENICILLIN]Drug Gydnuhx89-29-9173mlmnx, UnknownCV Physicians (20 sources)PenicillinsDrug Ahnxvqz45-52-0689Mgzyk, UnknownSal[facility] (4 sources)PenicillinsDrug Myntioi55-48-5192Gwubn, Other, UnknownS[facility] (1 source)PenicillinsDrug allergy (disorder)59-44-1486XechefntvSelect [facility] Medications Current Medications MedicationDrug Class(es)DatesSig (Normalized)Sig [...] 5 mg oral tablet (16 sources)Opioid AgonistStart: 16-51-3487ijop 1 tablet by mouth once daily as needed for painHydrocodone-Acetaminophen 5-325 mg tablet Active 1 TAB PO Daily as needed for pain July 19, 2025 12:00am Complies with drug therapyStart: 07-18-2025 End: 67-53-2305luot 1 tablet by mouth every eight hours as needed for pain HYDROcodone-acetaminophen ([place]) 5-325 MG tablet Indications: Pain Take 1 tablet by mouth every 8 (eight) hours if needed for moderate pain (PRN pain) for up to 5 days 15 tablet 07/27/2025 08/01/2025 Activealbuterol 0.83 mg/ml inhalation solution (20 sources)beta2-Adrenergic AgonistStart: 88-59-9411Skpbzswhu Sulfate 2.5 mg /3 mL (0.083 %) solution for nebulization Active 2.5 MG CNTNEBULIZ Four times daily as needed for shortness of breath or wheezing July 19, 2025 12:00am Complies with drug therapyStart: 06-21-2024 End: 94-00-5285qqzmuzrxn (2.5 MG/3ML) 0.083% nebulizer solution 3 ml Inhalation 4 times a day and as needed for 6 03/01/2025 Discontinued (Ineffective)albuterol 2.5 mg /3 mL (0.083 %) nebulizer solution Take 3 mL (2.5 mg) by nebulization 4 times a day as needed for wheezing or shortness of breath. ActiveamLODIPine 10 mg oral tablet (20 sources)Dihydropyridine Calcium Channel BlockerStart: 64-85-3022nqJKGXBxhi (Norvasc) 10 MG tablet 05/11/2024 ActiveStart: 01-13-2023 End: 99-77-5993lrbk 1 tablet by mouth once dailyAmlodipine 5 mg tablet Discontinued 5 MG PO Daily January 13, 2023 1:00am February 15, 2025 6:47pmapixaban 5 mg oral tablet (20 sources)Factor Xa InhibitorStart: 01-13-2023 End: 54-52-0164xkqv 1 tablet by mouth in the morningapixaban (Eliquis) 5 MG tablet Indications: Paroxysmal atrial fibrillation (CMS/HCC) Take 1 tablet (5 mg) by mouth in the morning and 1 tablet (5 mg) before bedtime. 200 tablet 1 08/23/2024 12/30/2024 Discontinued (Cost of medication)Start: 01-13-2023 End: 53-16-1108egwg 1 tablet by mouth every twelve hoursEliquis 5 mg tablet take 1 tablet by oral route 2 times every day 5 MG - Activeatorvastatin 80 mg oral tablet (20 sources)HMG-CoA Reductase InhibitorStart: 97-25-6376shuz 1 tablet by mouth once dailyatorvastatin (Lipitor) 80 MG tablet Indications: Mixed hyperlipidemia TAKE 1 TABLET BY MOUTH EVERY DAY 100 tablet 3 11/15/2024 Activebenzonatate 200 mg oral capsule (7 sources)Non-narcotic AntitussiveStart: 09-22-2024 End: 73-42-4459siwh 1 capsule by mouth three times daily [...] BREAKFAST AND WITH EVENING MEAL 02/22/2025 ActiveStart: 11-44-1767ocxw 1 tablet by mouth every twelve hours carvedilol (Coreg) 25 MG tablet Take 25 mg by mouth every 12 (twelve) hours. 0 01/28/2023 ActiveStart: 52-43-0709pntl 0.5 tablet by mouth every twelve hours carvedilol (Coreg) 25 mg tablet Take 0.5 tablets (12.5 mg) by mouth every 12 hours. 01/13/2023 ActiveStart: 57-82-1962nqzh 1 tablet by mouth every twelve hourscarvedilol (Coreg) 25 mg tablet Take 1 tablet (25 mg) by mouth every 12 hours. 01/13/2023 ActiveStart: 01-13-2023 End: 95-65-6629xnwy 1 tablet by mouth twice dailyCarvedilol 25 mg tablet Discontinued 25 MG PO Twice daily January 13, 2023 1:00am July 19, 2025 2:49pmStart: 88-90-6430cujn 12.5 mg by mouth twice dailyCarvedilol Active 12.5 MG PO Twice daily January 13, 2023 1:00am End: 94-60-8677wicj 1 capsule by mouth once dailyCoreg CR 20 mg capsule, extended release take 1 capsule by oral route every day 20 MG - Euf-73-5651Ss Longer Activecarvedilol (Coreg) 25 MG tablet Take 12.5 mg by mouth in the morning and 12.5 mg before bedtime. Activecitalopram 20 mg oral tablet (20 sources)Serotonin Reuptake InhibitorStart: 67-54-8350upaa 1 tablet by mouth twice dailycitalopram (CeleXA) 20 mg tablet Take 1 tablet (20 mg) by mouth 2 times a day. 01/13/2023 ActiveStart: 78-22-0267dkcd 1 tablet by mouth once daily citalopram (CeleXA) 20 MG tablet Indications: Generalized anxiety disorder Take 1 tablet (20 mg) bymouth Daily 100 tablet 2 11/30/2024 ActiveStart: 05-05-2019 End: 20-20-6135prpo 1 tablet by mouth once dailycitalopram 40 mg tablet take 1 tablet by oral route every day 40 MG - No Longer Active take 0.5 tablet by mouth every twenty-four hoursCitalopram Hydrobromide 40 MG 0.5 tablet Orally Once a day Activecodeine phosphate 2 mg/ml / guaiFENesin 20 mg/ml oral solution (7 sources)Opioid AgonistStart: 09-22-2024 End: 59-39-5974ilni 5 mL by mouth four times daily as needed for cough guaiFENesin-codeine (guaiFENesin AC) 100-10 MG/5ML syrup Indications: Acute cough Take 5 mL by mouth 4 (four) times a day as needed for cough for up to 10 days 120 mL 09/22/2024 10/02/2024 ActiveContinuous Glucose Administrator Social Welfare (Dexcom G7 Administrator Social Welfare) device (20 sources)Start: 59-95-8975Vggrcnjmpv Glucose Administrator Social Welfare (Dexcom G7 Administrator Social Welfare) device Indications: Type 2 diabetes mellitus with [...] 1 Device yearly 1 each 03/05/2024 ActiveStart: 25-01-4248Sitaqcbvnd Glucose Administrator Social Welfare (Dexcom G7 Administrator Social Welfare) device Indications: Type 2 diabetes mellitus with [...] 03/05/2024 ActiveContinuous Glucose Sensor (Dexcom G7 Sensor) [facility] (20 sources)Start: 88-14-9052Tivgewsghl Glucose Sensor (Dexcom G7 Sensor) [facility] Indications: Type 2 diabetes mellitus with hyperglycemia, with long-term current use of insulin ([facility]) 1 UNITS EVERY 10 (TEN) DAYS 9 each 3 02/03/2025tive Start: 93-99-3946Ewuwpgnyin Glucose Sensor (Dexcom G7 Sensor) [facility] Indications: Type 2 diabetes mellitus with hyperglycemia, with long-term current use of insulin (CMS/[facility]) 1 UNITS EVERY 10 (TEN) DAYS 9 each 3 02/03/2025 Active dabigatran etexilate 150 mg oral capsule (20 sources)Start: 91-50-7322nkap 1 capsule by mouth every twelve hoursPradaxa 150 mg capsule take 1 capsule by oral route 2 times every day 150 MG - ActiveStart: 67-15-5476cell 1 capsule by mouth twice dailyDabigatran Etexilate 150 mg capsule Active 150 MG PO Twice daily July 19, 2025 12:00am Complies with drug therapyStart: 12-20-2024 End: 24-87-7075kbsg 1 capsule by mouth in the morningdabigatran etexilate (Pradaxa) 150 MG capsule Indications: Paroxysmal atrial fibrillation ([facility]/HCC) Take 1 capsule (150 mg) by mouth in the morning and 1 capsule (150 mg) before bedtime. Do not crushor chew.. 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 (CMS/HCC) Take 1 tablet (10 mg) by mouth Daily 30 tablet 11 12/30/2024 03/01/2025 Discontinued (Ineffective)diclofenac sodium 0.01 mg/mg topical gel (20 sources)Nonsteroidal Anti-inflammatory DrugStart: 51-84-2730pkdlywxbyl sodium 1 % gel APPLY 4 GRAMS TO ABDOMINAL WALL FOUR TIMES DAILY NEEDED 02/16/2025 ActiveStart: 46-93-4271Iyenmegkfc Sodium (Voltaren Arthritis Pain) 1 % gel Active 4 GM TOPICAL Four times daily as needed for abdominal pain February 16, 2025 12:54pm Apply to abdominal wall Complies with drug therapyStart: 34-73-3336Runtibdith Sodium (Voltaren Arthritis Pain) 1 % gel Active 4 GM TOPICAL Four times daily as needed for abdominal pain February 16, 2025 12:54pm Apply to abdominal walldicyclomine hydrochloride 10 mg oral capsule (20 sources)AnticholinergicStart: 02-22-2025 End: 87-90-7878vtfcrrqqfhe (Bentyl) 10 MG capsule Indications: Irritable bowel syndrome with both constipation anddiarrhea Take 1 capsule (10 mg) by mouth in the morning and 1 capsule (10 mg) at noon and 1 capsule(10 mg) in the evening and 1 capsule (10 mg) before bedtime. 200 capsule 2 04/14/2025 ActiveStart: 01-13-2023 End: 62-00-8503jjmm 1 tablet by mouth three times dailyDicyclomine 20 mg Tablet Discontinued 20 MG PO Three times daily January 13, 2023 1:00am May 19, 2024 8:19am End: 37-74-9811xjua 1 tablet by mouth four times daily [...] sulfate 325 mg oral tablet (20 sources)Start: 73-68-0427mgvw 1 tablet by mouth once dailyferrous sulfate 325 mg (65 mg iron) tablet take 1 tablet by oral route every day 325 MG - ActiveStart: 02-16-2025 End: 63-62-0316dtqr 1 tablet by mouth every other dayferrous sulfate 325 (65 Fe) MG tablet Indications: Asthma without status asthmaticus without complication, unspecified asthma severity, unspecified whether persistent (HCC) Take 1 tablet (325 mg) by mouth every other day 50 tablet 07/20/2025 ActiveStart: 01-13-2023 End: 87-70-2904glsp 1 tablet by mouth once dailyFerrous Sulfate 140 mg (45 mg iron) Tablet Extended Release Discontinued 140 MG PO Daily January 1:00am May 18, 2024 10:44amFerrous Sulfate Activefurosemide 40 mg oral tablet (20 sources)Loop DiureticStart: 71-97-7232pfrp 40 mg by mouth once daily before nermkcjud72 mg, oral, Daily before breakfast, First dose on Fri06/22/24 at 0700 Start: 03-19-2024 End: 34-96-6466dqjp 1 tablet by mouth once dailyfurosemide 20 mg tablet take 1 tablet by oral route every day 20 MG - No Longer Active Start: 03-19-2024 End: 28-37-3100bhjg 3 tablets by mouth in the morningfurosemide (Lasix) 20 MG tablet Take 60 mg by mouth in the morning. 03/19/2024 03/01/2025 Discontinued (Therapy completed)Start: 11-93-6515loah 1 tablet by mouth once dailyfurosemide (Lasix) 40 MG tablet Indications: Edema, unspecified type TAKE 1 TABLET BY MOUTH EVERY DAY 90 tablet 12/20/2024 ActiveStart: 11-67-4500Coesoybdyr 40 mg tablet Active 60 MG PO Daily January 13, 2023 1:00am Complies with drug therapyStart: 62-26-9807qixr 60 mg by mouth once dailyFurosemide Active 60 MG PO Daily January 13, 2023 1:00amgabapentin 300 mg oral capsule (20 sources)Anti-epileptic AgentStart: 01-67-4114ndbo 1 capsule by mouth twice yksnj429 mg, oral, 2 times daily, First dose on Fri06/21/24 at 2100, Capsules may be opened and sprinkled on food (eg, applesauce, orange juice, puddingStart: 68-74-4756tieg 2 capsules by mouth twice dailygabapentin (Neurontin) 300 mg capsule Take 2 capsules (600 mg) by mouth 2 times a day. 01/13/2023 ActiveStart: 01-13-2023 End: 10-14-4279qhef 1 capsule by mouth in the morninggabapentin (Neurontin) 300 MG capsule Indications: Polyneuropathy due to type 2 diabetes mellitus (HCC) Take 1 capsule (300 mg) by mouth in the morning and 1 capsule (300 mg) before bedtime. 180 capsule 3 09/22/2024 09/22/2025 ActiveStart: 74-04-7308gwip 1 capsule by mouth twice dailygabapentin 300 mg capsule take 1 capsule by oral route 2 times every day - Activeglucagon (rdna) 1 mg injection (2 sources)Antihypoglycemic AgentStart: ml glucose 500 mg/ml prefilled syringe (2 sources)Start: 16-22-7598mcarOYBJTGI hydrochloride 100 mg oral tablet (20 sources)Arteriolar VasodilatorStart: 03-02-2025 End: 11-95-4619svyhTYSHUVM (Apresoline) 100 MG tablet 03/02/2025 ActiveStart: 97-08-3804kysnKAJDKCO (Apresoline) 100 MG tablet 03/02/2025 ActiveStart: 12-20-2024 End: 73-93-5032zvdj 1 tablet by mouth twice dailyHydralazine 25 mg tablet Discontinued 25 MG PO Twice daily February 15, 2025 12:00am July 19, 2025 2:52pmStart: 66-08-5654nzcmHNLRTXH (Apresoline) 50 MG tablet Take 75 mg by mouth in the morning and 75 mg before bedtime. 08/22/2024 ActiveStart: 05-10-2024 End: 21-78-8594gnwx 1 tablet by mouth twice dailyHydralazine 50 mg tablet Discontinued 50 MG PO Twice daily February 15, 2025 12:00am July 19, 2025 2:52pmStart: 01-13-2023 End: 20-65-5184Wedmeoxeiyg 100 mg tablet Discontinued 50 MG PO Twice daily January 13, 2023 1:00am February 15, 2025 6:39pmStart: 24-28-0424yjtb 50 mg by mouth twice dailyHydralazine Active 50 MG PO Twice daily January 13, 2023 1:00amStart: 13-64-3450pjhw 100 mg by mouth twice dailyHydralazine Active 100 MG PO Twice daily January 13, 2023 1:00am3 ml insulin glargine 100 unt/ml pen injector (20 sources)Insulin AnalogStart: 07-20-2025 End: 58-50-1814svdlhg 45 [IU] by subcutaneous injection at bedtimeinsulin glargine (Lantus) 100 UNIT/ML pen Indications: Type 2 diabetes mellitus with hyperglycemia,with long-term current use of insulin (HCC) Inject 45 Units under the skin at bedtime 40.5 mL 3 07/20/2025 07/20/2026 ActiveStart: 03-01-2025 End: 36-80-9168kjwdok 40 [IU] by subcutaneous injection at bedtimeinsulin glargine (Lantus) 100 UNIT/ML pen Indications: Type 2 diabetes mellitus with hyperglycemia,with long-term current use of insulin (HCC) Inject 40 Units under the skin at bedtime 36 mL 3 06/16/2025 07/20/2025 DiscontinuedStart: 02-15-2025 End: 66-98-4871Dvdhjp Solostar U-100 Insulin 100 unit/mL (3 mL) subcutaneous pen inject by subcutaneous route per prescriber's instructions. Insulin dosing requires individualization. 0.00 - ActiveStart: 12-30-2024 End: 75-79-1847Thronte Glargine (Lantus Solostar U-100 Insulin) 100 unit/mL (3 mL) insulin pen Active 80 UNIT SUBCUT Bedtime February 15, 2025 12:00am Complies with drug therapyStart: 09-22-2024 End: 91-23-1643mhoedyi glargine (Basaglar KwikPen) 100 UNIT/ML pen Indications: Type 2 diabetes mellitus with hyperglycemia, with long-term current use of insulin (CMS/HCC) Inject 75 Units under the skin at vfurhvz56 mL 11 09/22/2024 12/30/2024 DiscontinuedStart: 09-22-2024 End: 71-13-2928kdxpty 70 [IU] by subcutaneous injection at bedtimeinsulin glargine (Lantus) 100 UNIT/ML injection Indications: Type 2 diabetes mellitus with hyperglycemia, with long-term current use of insulin (CMS/HCC) Inject 70 Units under the skin at bedtime 09/22/2024 09/22/2024 Discontinued (Reorder) Start: 09-22-2024 End: 29-14-4336kywrwm 75 [IU] by subcutaneous injection at bedtimeinsulin glargine (Lantus) 100 UNIT/ML injection Indications: Type 2 diabetes mellitus with hyperglycemia, with long-term current use of insulin (CMS/HCC) Inject 75 Units under the skin at bedtime 22.5 mL 11 09/22/2024 09/22/2024 Discontinued (Reorder)Start: 03-18-2024 End: 61-22-2842lxjgjr 40 [IU] by subcutaneous injection at bedtimeinsulin glargine (Lantus) 100 UNIT/ML injection Indications: Type 2 diabetes mellitus with hyperglycemia, with long-term current use of insulin (CMS/HCC) Inject 40 Units under the skin at bedtime 10 mL 12 03/18/2024 09/22/2024 Discontinued Start: 37-68-0700Ysepqpyz KwikPen U-100 Insulin 100 unit/mL (3 mL) pen Inject 50 Units under the skin once daily at bedtime. 11/17/2023 ActiveStart: 11-14-2023 insulin glargine (Basaglar KwikPen) 100 UNIT/ML pen Indications: Type 2 diabetes mellitus with hyperglycemia, unspecified whether correction insulin use (CMS/HCC) INJECT 86 UNITS UNDER THE SKIN AT AT BEDTIME 75 mL 3 11/14/2023 Active insulin glargine (Semglee) 100 UNIT/ML injection Inject 86 Units under the skin at bedtime. 0 ActiveSemglee 100 UNIT/ML as directed Subcutaneous Not-Taking Insulin Glargine-Yfgn (2 sources)Start: 51-05-6639iipbfd 50 [IU] by subcutaneous injection at bedtime Insulin Glargine-Yfgn Active 50 UNIT SUBCUT Bedtime May 18, 2024 12:00am insulin lispro 100 unt/ml injectable solution (1 source)Insulin AnalogStart: 74-08-6565qypqndy, regular, human 100 unt/ml injectable solution (20 sources)InsulinStart: 86-30-3060InndIQT R 100 UNIT/ML injection Indications: Type 2 [...] 40 mL 2 09/22/2024 ActiveStart: 01-29-2024 End: 29-93-3305qitjgz 22 [IU] by subcutaneous injection onceinsulin regular (NovoLIN R) 100 UNIT/ML injection Indications: Type 2 diabetes mellitus with hyperglycemia, with long-term current use of insulin (CMS/HCC) INJECT DIRECTED UNDER THE SKIN PER SLIDING SCALE WITH MAX OF 22 UNITS PER DAY 40 mL 2 01/29/2024 09/22/2024 Discontinued (Reorder)Start: 31-64-8704eifuoz 10 [IU] by subcutaneous injection once before mealtimeInsulin Regular Human (Novolin R Flexpen) 100 unit/mL (3 mL) Insulin Pen Active 22 UNIT SUBCUT 3x/Day before meals January 13, 2023 1:00am if less then 150 does not take insulin if its greater the 150takes 10units Complies with drug therapyStart: 74-03-1928qldzfv 10 [IU] by subcutaneous injection once before mealtimeInsulin Regular Human (Novolin R Flexpen) 100 unit/mL (3 mL) Insulin Pen Active 10 UNIT SUBCUT 3x/Day before meals January 13, 2023 1:00am if less then 150 does not take insulin if its greater the 150takes 10unitsStart: 50-98-9931vtcxrw 9 [IU] by subcutaneous injection three times dailyInsulin Regular Human (Novolin R Flexpen) 100 unit/mL (3 mL) Insulin Pen Active 9 UNIT SUBCUT Threetimes daily January 13, 2023 1:00am Start: 68-09-8531BbbiTFB R 100 UNIT/ML injection Inject 20 mL under the skin in the morning. 0 10/24/2022 Active End: 59-04-3002Poplxvz R Regular U-100 Insulin 100 unit/mL injection solution inject by subcutaneous route per prescriber's instructions. Insulin dosing requires individualization. 0. No Longer ActiveNovoLIN R 100 UNIT/ML as directed Injection Activeketorolac tromethamine 5 mg/ml ophthalmic solution (20 sources)Nonsteroidal Anti-inflammatory Drug, Cyclooxygenase InhibitorStart: 09-01-2024 End: 74-56-1074mktyiavus (Acular) 0.5 % ophthalmic solution 09/01/2024 03/01/2025 Discontinued (Ineffective)Start: 07-13-2024 End: 61-09-1805yhly 1 drop(s) into the eye(s) in the morningketorolac (Acular) 0.5 % ophthalmic solution Indications: Cataract mature, total senile Administer 1 drop into affected eye(s) in the morning and 1 drop before bedtime. 5 mL 1 07/13/2024 08/12/2024 ActivelevoFLOXacin 500 mg oral tablet (11 sources)Quinolone AntimicrobialStart: 09-20-2025 End: 76-54-0272wkta 1 tablet by mouth once dailylevoFLOXacin (Levaquin) 500 MG tablet Indications: Acute non-recurrent pansinusitis Take 1 tablet (500 mg) by mouth Daily for 10 days 10 tablet 09/20/2025 09/30/2025 ActiveStart: 08-24-2025 End: 03-81-4114lyoi 1 tablet by mouth once dailylevoFLOXacin (Levaquin) 500 MG tablet Indications: Acute non-recurrent pansinusitis Take 1 tablet (500 mg) by mouth Daily for 10 days 10 tablet 08/24/2025 09/03/2025 ActiveStart: 09-22-2024 End: 97-50-2875sxvn 1 tablet by mouth once dailylevoFLOXacin (Levaquin) 500 MG tablet Indications: Acute asthmatic bronchitis (CMS/HCC) Take 1 tablet (500 mg) by mouth Daily for 10 days 10 tablet 09/22/2024 10/02/2024 Activelisinopril 20 mg oral tablet (20 sources)Angiotensin Converting Enzyme InhibitorStart: 02-00-4720cqcrvicpoa 20 MG tablet Take 20 mg by mouth 05/10/2024 Activeloratadine 10 mg oral tablet (20 sources)Start: 18-74-2872ozpj 1 tablet by mouth in the morningloratadine (Claritin) 10 MG tablet Take 10 mg by mouth in the morning. 02/15/2025 Active methocarbamol 500 mg oral tablet (20 sources)Muscle RelaxantStart: 25-02-6266rpkx 1 tablet by mouth every eight hours as neededmethocarbamol (Robaxin) 500 MG tablet Take 500 mg by mouth every 8 (eight) hours if needed 05/03/2025 ActivemethylPREDNISolone (4 sources)CorticosteroidStart: 08-24-2025 End: 23-76-4873nojkcsOSUTAJLjynks (Medrol Dospak) 4 MG tablets Indications: Acute non-recurrent pansinusitis Follow schedule on package instructions 21 tablet 08/24/2025 08/31/2025 ActiveStart: 09-22-2024 End: 94-95-3289hmpehbEJXAPEJipezn (Medrol Dospak) 4 MG tablets Indications: Acute asthmatic bronchitis (CMS/HCC) Follow schedule on package instructions 21 tablet 09/22/2024 09/29/2024 ExpiredMultivitamin (Daily Multi-Vitamin) tablet (6 sources)Start: 05-62-6969mgby 1 tablet by mouth once daily in the morning Multivitamin (Daily Multi-Vitamin) tablet Active 1 TAB PO Every morning February 15, 2025 12:00am Complies with drug therapyStart: 65-91-1083axqu 1 tablet by mouth once daily in the morningStart: 78-52-7701qils 1 tablet by mouth once dailyMultivitamin (Daily Multi-Vitamin) tablet Active 1 TAB PO Daily February 15, 2025 12:00am Complies with drug therapyStart: 71-21-8766xdoi 1 tablet by mouth once dailyMultivitamin (Daily Multi-Vitamin) tablet Active 1 TAB PO Daily February 15, 2025 12:00amMultivitamin preparation (5 sources)Multiple Vitamins tablet qd - Activeofloxacin 3 mg/ml ophthalmic solution (1 source)Quinolone AntimicrobialStart: 07-13-2024 End: 88-06-3149lxkc 1 drop(s) into the eye(s) five times dailyofloxacin (Ocuflox) 0.3 % ophthalmic solution Indications: Cataract mature, total senile Administer1 drop into the right eye 5 (five) times a day for 1 day Starting 1 day before surgery, continue after surgery as directed 5 mL 1 07/13/2024 07/14/2024 Activeondansetron 4 mg disintegrating oral tablet (7 sources)Serotonin-3 Receptor AntagonistStart: 13-51-7094evrd 1 tablet by mouth every eight hours [...] tablet (20 sources)Proton Pump InhibitorStart: 03-02-2025 End: 95-79-9965qicd 1 tablet by mouth before mealtimepantoprazole (ProtoNix) 40 MG EC tablet Take 40 mg by mouth in the morning. Take before meals. 03/02/2025 03/02/2026 Activemicroencapsulated potassium chloride 20 meq extended release oral tablet (20 sources)Start: 30-50-8241pyah 1 tablet by mouth once dailypotassium chloride CR (Klor-Con M20) 20 MEQ ER tablet Indications: Benign essential hypertension TAKE 1 TABLET(20 MEQ) BY MOUTH DAILY 90 tablet 08/24/2025 ActiveStart: 73-86-8624drbh 1 tablet by mouth once daily at mealtimepotassium chloride ER 20 mEq tablet,extended release take 1 tablet by oral route every day with food 20 MEQ - ActiveStart: 01-13-2023 End: 39-04-9997gdju 1 tablet by mouth once dailypotassium chloride CR (Klor-Con M20) 20 MEQ ER tablet Indications: Benign essential hypertension Take 1 tablet (20 mEq) by mouth Daily 90 tablet 04/14/2025 ActiveprednisoLONE acetate 10 mg/ml ophthalmic suspension (20 sources)CorticosteroidStart: 09-01-2024 End: 03-66-8850uaujrojaJITG acetate (Pred-Forte) 1 % ophthalmic suspension 09/01/2024 03/01/2025 Discontinued (Ineffective)Start: 07-13-2024 End: 13-60-8881lbnpzeuiXTPP acetate (Pred-Forte) 1 % ophthalmic suspension Indications: Cataract mature, total senile Administer 1 drop into both eyes in the morning and 1 drop at noon and 1 drop in the evening and1 drop before bedtime. Do all this for 14 days. 5 mL 1 07/13/2024 07/27/2024 Active spironolactone 25 mg oral tablet (20 sources)Aldosterone Antagonist End: 88-09-1279xkza 1 tablet by mouth in the morningspironolactone (Aldactone) 25 MG tablet Take 25 mg by mouth in the morning. 03/01/2025 Discontinued (Ineffective) Completed/Discontinued Medications MedicationDrug Class(es)DatesSig (Normalized)Sig (Original)acetaminophen 325 mg / oxyCODONE hydrochloride 5 mg oral tablet (13 sources)Opioid AgonistStart: 06-15-2024 End: 78-28-3536kfxh 1 tablet by mouth every six hours for painoxyCODONE- acetaminophen (Percocet) 5-325 mg tablet Indications: PAD (peripheral artery disease) (CMS-HCC) Take 1 tablet by mouth every 6 hours if needed for severe pain (7 - 10) for up to 7 days. 5 tablet 06/15/2024 06/22/2024 Discontinued (Stop Taking at Discharge)Start: 06-03-2024 End: 94-45-3401ojip 1 tablet by mouth every eight hours as needed for pain Oxycodone-Acetaminophen (Percocet) 5-325 mg tablet Discontinued 1 TAB PO Every 8 hours as needed for pain 29 08June 03, 2024 February 15, 2025 6:45pmStart: 12-09-2023 End: 25-54-5763ssnf 1 tablet by mouth every eight hours for painoxyCODONE- acetaminophen (Percocet) 5-325 MG tablet Indications: Pain Take 1 tablet by mouth every 8(eight) hours if needed for severe pain for up to 5 days 15 tablet 0 12/09/2023 12/14/2023 Activealbuterol 0.833 mg/ml / ipratropium bromide 0.167 mg/ml inhalation solution (18 sources)Anticholinergic, beta2-Adrenergic AgonistStart: 09-22-2024 End: 93-69-1701qixtqicenmk-albuterol (Duo-Neb) 0.5-2.5 mg/3 mL nebulizer solution Indications: [...] Inhibitor, Nonsteroidal Anti-inflammatory Drug Start: 01-13-2023 End: 62-10-1281eabc 1 tablet by mouth once dailyAspirin 81 mg Tablet,Chewable Discontinued 81 MG PO Daily January 13, 2023 1:00am May 18, 2024 10:44amBaby Aspirin Activeclopidogrel 75 mg oral tablet (20 sources)P2Y12 Platelet InhibitorStart: 01-08-2024 End: 88-36-4680ziva 1 tablet by mouth once dailyClopidogrel 75 mg tablet Discontinued 75 MG PO Daily May 18, 2024 12:00am June 09, 2025 9:33amtake 1 tablet by mouth every twenty-four hoursClopidogrel Bisulfate 75 MG 1 tablet Orally Once a day Not-TakingContinuous Blood Gluc Sensor (Dexcom G7 Sensor) misc (20 sources)Start: 12-15-2023 End: 51-61-4859Baijergrfw Blood Gluc Sensor (Dexcom G7 Sensor) misc Indications: Type 2 diabetes mellitus with hyperglycemia, with long-term current use of insulin (CMS/HCC) 1 Disk Every 10 (ten) days 3 each 11 12/15/2023 02/03/2025 DiscontinuedStart: 75-46-0564Xhslvlrbof Blood Gluc Sensor (Dexcom G7 Sensor) misc Indications: Type 2 diabetes mellitus with hyperglycemia, with long-term current use of insulin (CMS/HCC) 1 Disk Every 10 (ten) days 3 each 11 12/15/2023 ActiveInsulin Glargine-Yfgn (3 sources)Start: 05-18-2024 End: 10-96-6772Gtxzubq Glargine-Yfgn 100 unit/mL solution Discontinued 50 UNIT SUBCUT Bedtime May 18, 2024 12:00am February 15, 2025 6:44pmInsulin Glargine- Yfgn 100 unit/mL solution (3 sources)Start: 05-18-2024 End: 75-74-5956Cutqlji Glargine-Yfgn 100 unit/mL solution Discontinued 50 UNIT SUBCUT Bedtime May 18, 2024 12:00am February 15, 2025 6:44pm Q-Wrgocgzxlrtc-T0-B12 3-35-2 MG (3 sources)take 1 tablet by mouth twice vmfyhG-Gztjbcowzdng-F0-B12 3-35-2 MG 1 tablet Orally Twice a day Not-TakingLORazepam 0.5 mg oral tablet (20 sources)Benzodiazepine End: 85-38-9760gddw 1 tablet by mouth every eight hours [...] day Not-Taking Semaglutide (11 sources)Start: 01-13-2023 End: 19-57-3098skuwmr 1 mg by subcutaneous injection every weekSemaglutide (Ozempic) 1 mg/dose (4 mg/3 mL) pen injector Discontinued 1 MG SUBCUT every week January 13, 2023 1:00am May 18, 2024 10:45amStart: 85-27-4626veency 1 mg by subcutaneous injection every weekSemaglutide (Ozempic) 1 mg/dose (4 mg/3 mL) pen injector Active 1 MG SUBCUT every week January 13, 2023 1:00amStart: 01-13-2023 inject 1 mg by subcutaneous injection every weekSemaglutide (Ozempic) 1 mg/dose (4 mg/3 mL) pen injector Active 1 MG SUBCUT every week January 13, 2023 12:00am Semglee 100 UNIT/ML (2 sources)Semglee 100 UNIT/ML as directed Subcutaneous Not-Jbmtih4330 ml sodium chloride 9 mg/ml injection (1 source)Start: 06-21-2024 End: 06-52-5862849 mL/hr, intravenous, Continuous, Starting on Fri06/21/24 at 1745, For 6 hours, Recovery & OnUnit, 6-12 hours post procedure. Post-Procedure Hydration Protocol ACC/AHA/MORRO DEXTRIN (3 sources)Benefiber - as directed Orally Not-TakingBenefiber - as directed Orally Active Problems Active Problems Problem ClassificationProblemDateDocumented DateEpisodic/ChronicAcute myocardial infarction (20 sources)Non-ST elevation (NSTEMI) myocardial infarction; Translations: [Myocardial infarction]Onset: 087732-91-5491QpgljpzIiipfyc disorders (20 sources)Generalized anxiety disorder; Translations: [Generalized anxiety disorder]Onset: 859908-13-3761ZzxryfeQqqmry (20 sources)Asthmatic bronchitis; Translations: [Unspecified asthma, uncomplicated]Onset: 454269-53-6169RfuhwvxRezjamu dysrhythmias (20 sources)Unspecified atrial fibrillation; Translations: [Paroxysmal atrial fibrillation]Onset: 465838-28-4088AweizrfYewkvdle (20 sources)Combined forms of age-related cataract, bilateral; Translations: [Age-related nuclear cataract, bilateral]Onset: 05-05-2024 Resolved: 33-69-2319UgcmxhrIfgfpnj kidney disease (2 sources)Chronic kidney disease stage 3B ; Translations: [Chronic kidney disease, stage 3b ([facility]-HCC)]78-34-2037IomxvrnEzfvguv ulcer of skin (20 sources)Non-pressure chronic ulcer of other part of left foot limited to breakdown of skin; Translations: [Non-pressure chronic ulcer of other part of left foot with fat layer exposed]Onset: 92-01-8373TmykwnsLjbfgekeslxl of device; implant or graft (20 sources)Arteriosclerosis of arterial coronary artery bypass graft; Translations: [Atherosclerosis of coronary artery bypass graft(s) without angina pectoris]Onset: 599870-27-9151WrntujlVjywbslfqe heart failure; nonhypertensive (20 sources)Acute combined systolic (congestive) and diastolic (congestive) heart failure; Translations: [Acutecombined systolic and diastolic heart failure]Onset: 248368-03-3104UgficvgJxygpxcf atherosclerosis and other heart disease (20 sources)Atherosclerotic heart disease of [place] coronary artery without angina pectoris; Translations: [Coronary atherosclerosis]Onset: 07-23-2022 14-36-9819UsjxnurZsjeduqz atherosclerosis and other heart disease (3 sources)Presence of aortocoronary bypass graft; Translations: [PRESENCE AORTOCORONARY BYPASS GRAFT]Onset: 48-62-2910VgyamdtyOfvuxfuegh and other anemia (4 sources)Iron deficiency anemia, unspecified; Translations: [IRON DEFICIENCY ANEMIA UNSPECIFIED]Onset: 07-67-8012QntktpsuBnuixljxrt and other anemia (6 sources)Anemia, unspecified; Translations: [Anemia, unspecified]Onset: 00-42-1976QzwuvxrkRjavahhr mellitus with complications (20 sources)Diabetes mellitus due to underlying condition with foot ulcer; Translations: [Type 2 diabetes mellitus with hyperglycemia]Onset: 01-09-2021 Resolved: 80-43-2026FshuftzQhcbheoj mellitus without complication (20 sources)Type 2 diabetes mellitus without complications; Translations: [Type 2 diabetes mellitus without complication]Onset: 12-29-2012 Resolved: 760357-43-9686IvijdluRpvwbfs on above:Problem List clean-up per request of Phys. EHR CmteDisorders of lipid metabolism (20 sources)Pure hypercholesterolemia, unspecified; Translations: [Mixed hyperlipidemia]Onset: 585683-40-2085WvumkhhYjpbcjc on above:Problem List clean-up per request of Phys. EHR CmteDiverticulosis and diverticulitis (20 sources)Diverticulosis of colon; Translations: [Diverticulosis of large intestine without perforation or abscess without bleeding]Onset: 03-29-2010 30-44-2148XywdtnmT Codes: Fall (1 source)Unspecified fall, initial encounter; Translations: [UNSPECIFIED FALL INITIAL ENCOUNTER]Onset: 91-33-4805VjhivtgvZmvoxoiyef disorders (1 source)Gastro-esophageal reflux disease without esophagitis; Translations: [GERD WITHOUT ESOPHAGITIS]Onset: 26-21-7535SywgoalQdguymkmy hypertension (20 sources)Essential (primary) hypertension; Translations: [Benign essential hypertension]Onset: 056038-98-0648CdczqahUxdrrhb on above:Problem List clean-up per request of Phys. EHR CmteGastritis and duodenitis (20 sources)Atrophic gastritis; Translations: [Chronic atrophic gastritis without bleeding]Onset: 179009-78-6431TmztxtkEbcb and other crystal arthropathies (20 sources)Chondrocalcinosis; Translations: [Other chondrocalcinosis, unspecified site]Onset: 547934-16-1426YrjtwbtJiptxagz; including migraine (20 sources)Migraine; Translations: [Migraine, unspecified, not intractable, without status migrainosus]Onset: 469130-52-1686NytuumpCblloxao; including migraine (3 sources)Headache; including migraine; Translations: [HEADACHE UNSPECIFIED] Onset: 57-16-4992Qtvon valve disorders (20 sources)Nonrheumatic aortic (valve) stenosis; Translations: [Aortic stenosis, non-rheumatic ]Onset: 07-09-5398HwdlialQwwxzregvkdl with complications and secondary hypertension (1 source)Hypertensive heart disease with heart failure; Translations: [HTN HEART DISEASE W/HEART FAIL]Onset: 98-57-3924MmutekbFabyktyblpgkd and screening for infectious disease (2 sources)Vaccination needed; Translations: [Encounter for immunization] 01-25-8692MmcmtictWzhfgkwoi arthritis and osteomyelitis (except that caused by tuberculosis or sexually transmitted disease) (20 sources)Infection of bone; Translations: [Osteomyelitis, unspecified]Onset: 201265-11-7664JnabnpySplsviajby disorders (20 sources)Decreased estrogen level; Translations: [Other primary ovarian failure]Onset: 727126-04-1443GvalpmjYtrx disorders (2 sources)Single episode of major depression in full remission; Translations: [Major depressive disorder, single episode, in full remission]82-71-5539Mwmfroj Mycoses (14 sources)Pain in toe; Translations: [Tinea unguium]22-86-8112Xrssuruo Nonmalignant breast conditions (2 sources)Breast finding ; Translations: [Other signs and symptoms in breast] 57-03-6582TykuakvlTvuttsyrd or stenosis of precerebral arteries (20 sources)Carotid artery stenosis; Translations: [Occlusion and stenosis of unspecified carotid artery]Onset: 230086-72-3726ZzpllcpCnwxdmm on above: Problem List clean-up per request of Phys. EHR CmteOsteoarthritis (1 source)Unspecified osteoarthritis, unspecified site; Translations: [UNSPECIFIED OSTEOARTHRITIS UNS SITE]Onset: 60-51-8879XjwmklmQvygk acquired deformities (14 sources)Contracture of joint of right ankle; Translations: [Contracture, right ankle]77-77-7823BzfprlzMvyuc acquired deformities (1 source)Contracture, right ankle; Translations: [Contracture, right ankle] Onset: 08-90-7724DwmroqgTehjz aftercare (1 source)intermediate card tender (current) use of anticoagulants; Translations: [NURSING INFORMATICS SPECIALIST CURRNT USE ANTICOAGULANTS]Onset: 99-18-4867UcaqsptfOmqtp aftercare (1 source)Other correction (current) drug therapy; Translations: [OTH NURSING INFORMATICS SPECIALIST CURRENT DRUG THERAPY]Onset: 34-85-0293HqjviedoNkcqi aftercare (1 source)intermediate card tender (current) use of antithrombotics/antiplatelets; Translations: [SENIOR LIVING ANTITHROMBOT/ANTIPLATLETS]Onset: 68-55-3879Ocaolczv Other aftercare (1 source)intermediate card tender (current) use of insulin; Translations: [SENIOR LIVING CURRENT USE OF INSULIN]Onset: 58-79-8219GgkccltjKtmim aftercare (1 source)intermediate card tender (current) use of aspirin; Translations: [SENIOR LIVING CURRENT USE OF ASPIRIN]Onset: 90-89-2356UnircnfzUcxqq circulatory disease (2 sources)Peripheral vascular angioplasty status; Translations: [Peripheral vascular angioplasty status]Onset: 20-80-0601TtbssxmrSjqly circulatory disease (2 sources)Low blood pressure; Translations: [Hypotension, unspecified] 77-78-2522HxibdzvfWgsby connective tissue disease (4 sources)Calcaneal spur of right foot; Translations: [Calcaneal spur, right foot]08-17-6250UeaiinveBiorw connective tissue disease (14 sources)Right achilles tendonitis; Translations: [Achilles tendinitis, right leg]50-53-9349GkjgabboWxxxo connective tissue disease (5 sources)Musculoskeletal pain; Translations: [Myalgia, other site]02-16-2025 EpisodicOther connective tissue disease (1 source)Achilles tendinitis, right leg; Translations: [Achilles tendinitis, right leg]Onset: 86-20-3407PluleuuvTxugv eye disorders (7 sources)Vitreous hemorrhage, bilateral; Translations: [Vitreous hemorrhage, bilateral]Onset: 41-57-8631XvyfszoBgrqf eye disorders (5 sources)Vitreous hemorrhageOnset: 94-21-1690SqybunoJaiaj eye disorders (20 sources)Vitreous hemorrhage, left eyeChronicOther eye disorders (20 sources)Hemorrhage of right vitreous body; Translations: [Vitreous hemorrhage, right eye]Onset: 05-05-2024 Resolved: 206087-94-9616RrynmtcDuacb eye disorders (2 sources)Hemorrhage of left vitreous body; Translations: [Vitreous hemorrhage, left eye]46-16-6965EplwdnnJkcwq eye disorders (3 sources)Vitreous hemorrhage, right eye; Translations: [Vitreous hemorrhage of right eye]Onset: 22-59-1005HpxrfbcUffoh eye disorders (1 source)Hemorrhage of bilateral vitreous bodies; Translations: [Hemorrhage of bilateral vitreous bodies]ChronicOther gastrointestinal disorders (20 sources)Irritable bowel syndrome; Translations: [Irritable bowel syndrome without diarrhea]Onset: 057468-47-1715QqjqwuwLjbuh injuries and conditions due to external causes (1 source)Other specified injuries of head, initial encounter; Translations: [OTH SPEC INJURIES HEAD INITIAL ENC]Onset: 79-22-3271CxpsbgclBxbng lower respiratory disease (2 sources)Cough; Translations: [Acute cough]37-69-2899XmcmnbhbTkkaj non- traumatic joint disorders (1 source)Pain in left wrist; Translations: [PAIN IN LEFT WRIST]Onset: 29-23-7725HdxgtihzVcqji upper respiratory infections (4 sources)Acute pansinusitis; Translations: [Acute pansinusitis, unspecified] 99-15-3499LiftnqhpNiqvjqnnck and visceral atherosclerosis (20 sources)Peripheral vascular disease; Translations: [Peripheral vascular disease, unspecified]Onset: 09-20-2021 Resolved: 58-83-6220RbnbpewEuqyqqcv codes; unclassified (2 sources)Hypersomnia, unspecified; Translations: [Hypersomnia, unspecified] Onset: 66-82-5760MqbiefzTzcrdtyb codes; unclassified (6 sources)Pain; Translations: [Pain, unspecified]36-66-6071LahatapcQwajxxj detachments; defects; vascular occlusion; and retinopathy (20 sources)Bilateral epiretinal membrane of eyes; Translations: [Puckering of macula, bilateral]Onset: 807898-87-9785RtcltrbMaieelpnej arthritis and related disease (2 sources)Rheumatoid arthritis; Translations: [Rheumatoid arthritis, unspecified]97-67-2626LtaiuyqCsowqtkqi and history of mental health and substance abuse codes (1 source)Personal history of nicotine dependence; Translations: [PERSONAL HISTORY OF NICOTINE DEPEND]Onset: 75-55-5025NcpabfmbIuhshoyzkrh; intervertebral disc disorders; other back problems (1 source)Pain in thoracic spine; Translations: [PAIN IN THORACIC SPINE]Onset: 49-11-6810WhjmspptVyasglq and strains (2 sources)Unspecified sprain of left wrist, initial encounter; Translations: [Strain of muscle and tendon of back wall of thorax, initial encounter]Onset: 91-96-7714UrlnvuznQuunjfgpjyqp (4 sources)CONTACT W/AND (SUSP) EXPOS COVID-19; Translations: [CONTACT W/AND (SUSP) EXPOS COVID-19]Onset: 78-95-2737Zvauuupokvwz (2 sources)A [facility] screening has identified you as FRAIL or [...] Four Ways to Beat the Frailty Risk [email or web address]-[email or web address] infection (1 source)Disease caused by 2019-nCoV; Translations: [UNVACCINATED COVID 19] Onset: 07-02-2022 Past or Other Problems Problem ClassificationProblemDateDocumented DateEpisodic/ChronicAbdominal pain (20 sources)Abdominal pain; Translations: [Unspecified abdominal pain]Onset: 899810-37-5636TofccjonBoxdkwacn infection; unspecified site (20 sources)Klebsiella pneumoniae [K. pneumoniae] as the cause of diseases classified elsewhere; Translations: [Staphylococcal infectious disease]Onset: 328866-69-1526WthkpooxHhrwweovqkvp of device; implant or graft (20 sources)Mechanical complication of musculoskeletal implant; Translations: [Other mechanical complication ofother internal orthopedic devices, implants and grafts, initial encounter]Onset: 983117-14-0094PpsxvgejTszxzrcskvyun of surgical procedures or medical care (20 sources)Dehiscence of surgical wound; Translations: [Disruption of external operation (surgical) wound, notelsewhere classified, initial encounter]Onset: 942311-27-7139GblfhjaeViwvxxeiyr and other anemia (20 sources)Anemia; Translations: [Anemia, unspecified]Onset: 02-18-2025 79-19-1074WltztzbaXztzyoqgpz and other anemia (20 sources)Iron deficiency anemia; Translations: [Iron deficiency anemia, unspecified]Onset: 408236-04-1117VuazfmoiKtdjqaif (20 sources)Gangrenous disorder; Translations: [Gangrene, not elsewhere classified]Onset: 408694-81-7763HtbfovsvSuusicd and fatigue (20 sources)Asthenia; Translations: [Weakness]Onset: 550993-91-2247 EpisodicMood disorders (20 sources)Mood disordersOnset: 932384-96-0863Ojsokyoutsw chest pain (20 sources)Chest pain, unspecified; Translations: [Chest pain]Onset: 12-29-2012 EpisodicOther aftercare (20 sources)Long-term current use of anticoagulant; Translations: [intermediate card tender (current) use of anticoagulants]Onset: 446754-60-5542AamdmzbaZloke and unspecified benign neoplasm (20 sources)History of polyp of colon; Translations: [History of colon polyps] Onset: 654643-55-6454IhylojjrVnuey bone disease and musculoskeletal deformities (20 sources)Osteopenia; Translations: [Other specified disorders of bone density and structure, unspecified site]Onset: 005286-36-2321PpuwpmtbDzjrm circulatory disease (3 sources)History of peripheral vascular angioplasty; Translations: [Peripheral vascular angioplasty status]27-90-5830AjytzoxjAfxfo connective tissue disease (20 sources)Pain in limb; Translations: [Pain in unspecified limb]Onset: 800869-49-4077FkbgbanjXprre connective tissue disease (2 sources)Pain of toes of bilateral feet; Translations: [Pain in right toe(s)] 06-48-3315LkdwxgvcJpirq connective tissue disease (1 source)Myalgia, other site; Translations: [Myalgia, other site]Onset: 02-30-7989AjoxbjrzMkeuf eye disorders (20 sources)Dry eyes; Translations: [Dry eye syndrome of bilateral lacrimal glands]Onset: 102708-84-8397ZednzsypOaoll lower respiratory disease (3 sources)Shortness of breath; Translations: [SHORTNESS OF BREATH]Onset: 83-12-3737TvbgvngtPuosn lower respiratory disease (1 source)Hypoxemia; Translations: [HYPOXEMIA]Onset: 96-14-2855OyoylauuRzjik nutritional; endocrine; and metabolic disorders (20 sources)Overweight; Translations: [Overweight]Onset: EpisodicOther screening for suspected conditions (not mental disorders or infectious disease) (20 sources)Patient encounter status; Translations: [Encounter for screening mammogram for malignant neoplasm of breast]Onset: 689215-32-9024Atjotbgc Residual codes; unclassified (1 source)Patient's intentional underdosing of medication regimen for other reason; Translations: [PT INTENT UNDERDOS MED OTH REASON]Onset: 07-02-2022 EpisodicResidual codes; unclassified (1 source)Acute pain; Translations: [Pain, unspecified]00-75-5834Wtjnzhae Unclassified (1 source)CONTACT W/AND (SUSP) EXPOS COVID-19; Translations: [CONTACT W/AND (SUSP) EXPOS COVID-19]Onset: 64-34-1441Offxitzjxccf (13 sources)DM with PDR without ME (chief complaint)Onset: 06-30-2024 Resolved: 39-44-6734Eofgfbvhqwqv (5 sources)Possible VH (chief complaint)Onset: 22-60-0052Zxbabpgjqfas (5 sources)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)Onset: 09-27-2022 Unclassified (5 sources)diabetic eye exam (chief complaint) NO VISION CHANGES (chief complaint)Onset: 69-48-1573Ymldammjqimg (10 sources)diabetic retinopathy (chief complaint) denies vision changes (chief complaint)Onset: 10-26-2019 Resolved: 47-38-1610Rrrcqvrnpoxj (5 sources)diabetic retinopathy (chief complaint) denies new vision change (chief complaint)Onset: 31-80-3776Ugwvkniejbow (5 sources)diabetic retinopathy (chief complaint) Decreased vision (chief complaint)Onset: 72-51-6681Axqexdfyoshy (6 sources)PDR (chief complaint)Onset: 08-04-2024 Resolved: 91-79-3977Uyagmtnmgifr (2 sources)Patient encounter eejhwr71-00-4123Ezhvwhgsjsfv (1 source)blurred vision (chief complaint)Onset: 71-31-4776Igmzcrr tract infections (1 source)Urinary tract infection, site not specified; Translations: [UTI SITE NOT SPECIFIED]Onset: 91-74-1983Qwhvvwix Results Test NameValueInterpretationReference RangeFacilityBasic Metabolic Panelon 23-18-1317Zpxhabkpnv Clr Calc Kybigpwt82.79NormKindred Hospital [facility] Comment on above:Result Comment: PERFORMED BY: [place] [id number] PATHOLOGIST LOOM CHECKER ARCHIE MENDOZA M.D.Performed By: #### BMP #### [facility] [address] [place] [address] USAGFR/1.73 sq M.predicted MDRD (S/P/Bld) [Vol rate/Area] 46.982 mL/min/{1.73_m2}NormalHca Florida Suwannee Emergency Physician GroupComment on above: Performed By: #### BMP #### [facility] [address] [place], [place] [id number] USACalcium [Mass/volume] in Serum or PlasmaOrdered By: Shamar Bowles on 31-38-7827Ohmsggv [Mass/Vol]9.5 mg/dLNormal8.6-10.3FCincinnati Children's Hospital Medical CenterComment on above:Performed By: #### BMP #### [facility] [address] [id number] USACapillary blood glucose measurement by glucometer (mass/volume)Ordered By: Alexis Gilmore on 83-60-8251Dtgnwiu [Mass/Vol]209 mg/dL [facility] Health MiamisburgComment on above:Random Glucose Reference Range is dependent [...] Serum or PlasmaOrdered By: Shamar Bowles on 81-81-3506WP5 [Moles/Vol]26.0 mmol/KAvthht27.0-31.0[facility] SouthComment on above:Performed By: #### BMP #### [facility] [address] [place] [address] USAChloride [Moles/volume] in Serum or PlasmaOrdered By: Shamar Bowles on 52-77-6324Mvsxyqjy [Moles/Vol]102 mmol/AAnmrkm34-089OxfvmlhxfSelect Medical Specialty Hospital - [facility] SouthComment on above:Performed By: #### BMP #### [facility] [address] [id number] USACreatinine [Mass/volume] in Serum or PlasmaOrdered By: Shamar Bowles on 62-82-8068Bouhtiywci [Mass/Vol]1.23 mg/dLHigh0.60-1.20[facility] SouthComment on above:Performed By: #### BMP #### [facility] [address] [id number] USAGLUCOSE POCT GLUCOMETERSon 28-73-7366LNJYRYH1Dbt4: Cleaned MeterNOMS HealthcareGlucose [Mass/Vol]209 mg/dLNOMS HealthcareComment on above: Random Glucose Reference Range is dependent on time and content of last meal. Glucose of more than 200 mg/dL in a nonstressed, ambulatory subject supports the diagnosis of Diabetes Mellitus. NOMS WxzxqolrljJCDFTLO1Bvp5: Cleaned MeterNOMS HealthcareGlucose [Mass/Vol]241 mg/dLNOMS HealthcareComment on [...] Blood by CreatinineOrdered By: Shamar Bowles on 44-48-9238Euqwshswdj filtration rate [Volume Rate/Area] in Serum, Plasma or Blood by Uuavqlixvn95.982 mL/Min [facility] SouthGlucose Poct Glucometerson 93-88-4556Exjuazn4 Glu2: Cleaned MeterHCA Florida JFK Hospital Physician GroupComment on above:Result Comment: PERFORMED BY: [place] [address] PATHOLOGIST LOOM CHECKER ARCHIE MENDOZA M.D.Performed By: #### GLULS #### Point of Care testing ,Xnyqksl0Plr5: Cleaned MeterNoCannon Memorial Hospital Physician GroupComment on above: Result Comment: PERFORMED BY: [place] [address] PATHOLOGIST LOOM CHECKER ARCHIE MENDOZA M.D.Performed By: #### GLULS #### Point of Care testing ,Glucose [Mass/Vol]241 mg/dLHCA Florida JFK Hospital Physician GroupComment on above: Result Comment: Random Glucose Reference Range is dependent on time and content of last meal. Glucose of more than 200 mg/dL in a nonstressed, ambulatory subject supports the diagnosis of Diabetes Mellitus.Performed By: #### GLULS #### Point of Care testing ,Glucose [Mass/Vol]261 mg/dLHCA Florida JFK Hospital Physician GroupComment on above: Result Comment: Random Glucose Reference Range is dependent on time and content of last meal. Glucose of more than 200 mg/dL in a nonstressed, ambulatory subject supports the diagnosis of Diabetes Mellitus. PERFORMED BY: [place] [address] PATHOLOGIST LOOM CHECKER ARCHIE MENDOZA M.D.Performed By: #### GLULS #### Point of Care testing ,Glucose [Mass/volume] in Serum or PlasmaOrdered By: Shamar Bowles on 07-22-2025 Glucose [Mass/Vol]239 mg/rYHhlg24-441TzenztupeSelect Medical Specialty Hospital - Columbus SouthComment on above:ADA recommended reference rangeRandom Glucose Reference [...] recommended reference rangePerformed By: #### BMP #### [facility] [address] [place] [address] USANo Panel InformationOrdered By: Alexis Gilmore on 61-74-4423Pffnywd Glucose CommentGlu2: cleaned meterSelect Medical Specialty Hospital - Columbus SouthNo Panel InformationOrdered By: Shamar Bowles on 85-52-6238Ekmvaebs Creatinine Clearance (Chem41.79[facility] SouthPotassium [Moles/volume] in Serum or PlasmaOrdered By: Shamar Bowles on 60-43-1067Tedgvhfyl [Moles/Vol]4.9 mmol/LNormal3.5-5.1FCincinnati Children's Hospital Medical CenterComment on above:Performed By: #### BMP #### [place] [address] USASerum or plasma anion gap determinationOrdered By: Shamar Bowles on 01-76-1544Fzbri gap [Moles/Vol]11.9 mmol/LNormal6.0-15.0[facility] SouthComment on above:Performed By: #### BMP #### [place] [address] USASodium [Moles/volume] in Serum or PlasmaOrdered By: Shamar Bowles on 35-40-6274Afwgfd [Moles/Vol]135 mmol/ILdq296-102IxcnxddwkSelect Medical Specialty Hospital - Columbus SouthComment on above:Performed By: #### BMP #### [place] [address] USAUrea nitrogen [Mass/volume] in Serum or PlasmaOrdered By: Shamar Bowles on 06-27-2874Fcfo nitrogen [Mass/Vol]38 mg/dLHigh7-25[facility] SouthComment on above:Performed By: #### BMP #### [address] [place] [address] USAALBUMIN, RANDOM URINE W/CREATININEon 17-39-0065IQHICZK, URINE0.4 mg/dLNormalSee Note:Quest DiagnosticsComment on above:Result Comment: Reference Range: Reference Range Not establishedPerformed By: #### 1759, 84844, 7600, 6517, 899 #### [facility] of [place] [address] Director Of Public Health: Jensen Johnson MDALBUMIN/CREATININE RATIO, RANDOM URINE13 mg/g [...] within a diagnostic category.Performed By: #### 1759, 07776, 0, 6517, 899 #### [facility] [place] [address] Director Of Public Health: Jensen Johnson MDCreatinine (U) [Mass/Vol]31 mg/oZJyzlql07-812 Quest DiagnosticsComment on above:Performed By: #### 1759, 26646, 7600, 6517, 899 #### [facility] [place] [address] Director Of Public Health: Jensen Johnson MDCBC (H/H, RBC, INDICES, WBC, PLT)on 07-21-2025 Erythrocyte distribution width (RBC) [Ratio]14.1 %Pgpyfl76.0-15.0Quest DiagnosticsComment on above:Performed By: #### 1759, 49502, 7600, 6517, 899 #### [facility] of [place] [address] Director Of Public Health: Jensen Johnson MDHematocrit (Bld) [Volume fraction]35.6 %Normal 35.0-45.0Quest DiagnosticsComment on above:Performed By: #### 1759, , 7599, 65, 899 #### [facility] [address], [address] [place] [address] Director Of Public Health: Jensen Johnson MDHemoglobin (Bld) [Mass/Vol]10.9 g/dLLow 11.7-15.5Quest DiagnosticsComment on above:Performed By: #### 1759, , 7599, 65, 899 #### [facility] [address], [address] [place] [address] Director Of Public Health: Jensen Johnson MDMCH (RBC) [Entitic mass]28.2 npNfywgt34.0-33.0 Quest DiagnosticsComment on above:Performed By: #### 1759, , 7599, 65, 899 #### [facility] [address], [address] [place] [address] Director Of Public Health: Jensen BELLAMYCHC (RBC) [Mass/Vol]30.6 g/dLLow32.0-36.0 Quest DiagnosticsComment on above:Result Comment: For adults, a slight decrease in the calculated MCHC value (in the range of 30 to 32 g/dL) is most likely not clinically significant; however, it should be interpreted with caution in correlation with other red cell parameters and the patient's clinical condition.Performed By: #### 175, , 7599, 65, 899 #### [facility] [place] [address] Director Of Public Health: Jensen Johnson MDMCV (RBC) [Entitic vol]92.2 qCNfzjvh81.0-100.0 Quest DiagnosticsComment on above:Performed By: #### 1759, , 7599, 65, 899 #### [facility] [address], [address] [place] [address] Director Of Public Health: Jensen Johnson MDPlatelet mean volume (Bld) [Entitic vol]11.3 fLNormal7.5-12.5Quest DiagnosticsComment on above:Performed By: #### 1759, 57512, 7600, 6517, 899 #### [facility] of [address], [address] [place] [address] Director Of Public Health: Jensen Johnson [facility] ([facility] [#/Vol]211 10*3/uLNormal 140-400Quest DiagnosticsComment on above:Performed By: #### 1759, 39487, 7600, 6517, 899 #### [facility] of [address], [address] [place] [address] Director Of Public Health: Jensen Johnson [facility] ([facility]) [#/Vol]3.86 10*6/uLNormal3.80-5.10 Quest DiagnosticsComment on above:Performed By: #### 1759, 92497, 7600, 6517, 899 #### [facility] of [address], [address] [place] [address] Director Of Public Health: Jensen Johnson [facility] [#/Vol]9.7 10*3/uLNormal3.8-10.8 Quest DiagnosticsComment on above:Performed By: #### 1759, 39735, 7600, 6517, 899 #### [facility] of [address], [address] [place] [address] Director Of Public Health: Jensen Johnson MDCOMPREHENSIVE METABOLIC PANELon 07-21-2025 Albumin [Mass/Vol]4.3 g/dLNormal3.6-5.1Quest DiagnosticsComment on above: Performed By: #### 1759, 03155, 7600, 6517, 899 #### [facility] of [place] [address] Director Of Public Health: Jensen Johnson MDAlbumin/Globulin [Mass ratio]1.7 {ratio}Normal 1.0-2.5Quest DiagnosticsComment on above:Performed By: #### 1759, 26909, 7600, 6517, 899 #### [facility] of [address], [address] [place] [address] Director Of Public Health: Jensen Johnson MDALP [Catalytic activity/Vol]109 U/LNormal 37-153Quest DiagnosticsComment on above:Performed By: #### 1759, 74495, 7600, 6517, 899 #### [facility] of [address], [address] [place] [address] Director Of Public Health: Jensen Johnson MDALT [Catalytic activity/Vol]13 U/LNormal6-29 Quest DiagnosticsComment on above:Performed By: #### 1759, 05544, 7599, 6517, 899 #### [facility] of [address], [address] [place] [address] Director Of Public Health: Jensen Johnson MDAST [Catalytic activity/Vol]14 U/TOzpptz50-02 Quest DiagnosticsComment on above:Performed By: #### 1759, 57336, 7599, 6517, 899 #### [facility] of [place] [address] Director Of Public Health: Jensen Johnson MDBilirubin [Mass/Vol]0.3 mg/dLNormal0.2-1.2 Quest DiagnosticsComment on above:Performed By: #### 1759, 17855, 7599, 6517, 899 #### [facility] of [place] [address] Director Of Public Health: Jensen Johnson MDCalcium [Mass/Vol]9.2 mg/dLNormal8.6-10.4Quest DiagnosticsComment on above:Performed By: #### 1759, 21935, 7599, 6517, 899 #### [facility] of [place] [address] Director Of Public Health: Jensen Johnson MDChloride [Moles/Vol]101 mmol/VBewzkv37-121 Quest DiagnosticsComment on above:Performed By: #### 1759, 53212, 760, 6517, 899 #### [facility] [place] [address] Director Of Public Health: Jensen Johnson MDCO2 [Moles/Vol]18 mmol/ZMdm06-07Mdjss DiagnosticsComment on above:Performed By: #### 1759, 03146, 7600, 6517, 899 #### [facility] [place] [address] Director Of Public Health: Jensen BUSTOSreatinine [Mass/Vol]1.52 mg/dLHigh0.60-1.00 Quest DiagnosticsComment on above:Performed By: #### 1759, 79443, 0, 6517, 899 #### [facility] [place] [address] Director Of Public Health: Jensen Johnson MDGFR/1.73 sq M.predicted among non-blacks MDRD (S/P/Bld) [Vol rate/Area]36 mL/min/{1.73_m2}Low> OR = 60Quest DiagnosticsComment on above:Performed By: #### 1759, 98395, 0, 6517, 899 #### [facility] [place] [address] Director Of Public Health: Jensen Johnson MDGlobulin (S) [Mass/Vol]2.5 g/dLNormal1.9-3.7 Quest DiagnosticsComment on above:Performed By: #### 1759, 73528, 7600, 6517, 899 #### [facility] [place] [address] Director Of Public Health: Jensen Johnson MDGlucose [Mass/Vol]258 mg/jWJgws64-93Uyvni DiagnosticsComment on above:Result Comment: Fasting reference interval For someone without known diabetes, a glucose value >125 mg/dL indicates that they may have diabetes and this should be confirmed with a follow-up test.Performed By: #### 1759, 39595, 7600, 6517, 899 #### [facility] of [address], [address] [place] [address] Director Of Public Health: Jensen Johnson MDPotassium [Moles/Vol]5.3 mmol/LNormal3.5-5.3 Quest DiagnosticsComment on above:Performed By: #### 1759, 20898, 7600, 6517, 899 #### [facility] of [address], [address] [place] [address] Director Of Public Health: Jensen Johnson MDProtein [Mass/Vol]6.8 g/dLNormal6.1-8.1Quest DiagnosticsComment on above:Performed By: #### 1759, 14027, 7600, 6517, 899 #### [facility] of [address], [address] [place] [address] Director Of Public Health: Jensen Johnson MDSodium [Moles/Vol]137 mmol/NNpawna155-936Pypfm DiagnosticsComment on above:Performed By: #### 1759, 40025, 7600, 6517, 899 #### [facility] of [address], [address] [place] [address] Director Of Public Health: Jensen Johnson MDUrea nitrogen [Mass/Vol]57 mg/dLHigh7-25Quest DiagnosticsComment on above:Performed By: #### 1759, 24774, 7600, 6517, 899 #### [facility] of [place] [address] Director Of Public Health: Jensen Johnson MDUrea nitrogen/Creatinine [Mass ratio]38 mg/mg High6-22Quest DiagnosticsComment on above:Performed By: #### 1759, 74521, 7600, 6517, 899 #### [facility] of [place] [address] Director Of Public Health: Jensen Johnson MDLIPID PANEL, STANDARD 10-91-6498Ofnqjudbrmc [Mass/Vol]187 mg/dLNormal<200Quest DiagnosticsComment on above:Order Comment: FASTING:YES FASTING: YESPerformed By: #### 1759, 55609, 7600, 6517, 899 #### [facility] [address], [address] [place] [address] Director Of Public Health: Jensen BUSTOSholesterol in HDL [Mass/Vol]32 mg/dLLow> OR = 50Quest DiagnosticsComment on above:Order Comment: FASTING:YES FASTING: YESPerformed By: #### 1759, 62641, 7600, 6517, 899 #### [facility] [address], [address] [address] Director Of Public Health: Jensen BUSTOSholestheidi.total/Cholesterol in HDL [Mass ratio]5.8 {ratio}High<5.0Quest DiagnosticsComment on above:Order Comment: FASTING:YES FASTING: YESPerformed By: #### 1759, 04000, 7600, 6517, 899 #### [facility] [address], [address] [place] [address] Director Of Public Health: Jensen Johnson MDLDL-CHOLESTEROLNormalQuest DiagnosticsComment on above:Order Comment: [...] LDL-C. Antonio QIU et al. LAURY. 2013;310(19): 0567-4772 (http://education.MarkITx.[employer]/faq/VNA623)Performed By: #### 1759, 57955, 7600, 6517, 899 #### [facility] [address], [address] [place] [address] Director Of Public Health: Jensen NEW HDL PBTHYEZXFIJ157 mg/dL (calc)High<130 Quest DiagnosticsComment on above:Order Comment: FASTING:YES FASTING: YESResult Comment: For patients with diabetes plus 1 major ASCVD risk factor, treating to a non-HDL-C goal of <100 mg/dL (LDL-C of <70 mg/dL) is considered a therapeutic option.Performed By: #### 1759, 53121, 7600, 6517, 899 #### [facility] [address], [address] [place] [address] Director Of Public Health: Jensen Johnson MDTriglyceride [Mass/Vol]863 mg/dLHigh<150Quest DiagnosticsComment on [...] of Clin. Lipidol. 2015;9:129-169.Performed By: #### 1759, 49307, 7600, 6517, 899 #### [facility] [address], [address] [place] [address] Director Of Public Health: Jensen Baez 76-55-2639DUE Qn1.88 m[IU]/LNormal 0.40-4.50Quest DiagnosticsComment on above:Performed By: #### 1759, 55726, 7600, 6517, 899 #### [facility] [address], [address] [place] [address] Director Of Public Health: Jensen Johnson MDHbA1c (Bld) [Mass fraction]on 07-20-2025 Interpretation and review of laboratory resultsAbnoPrisma Health Patewood Hospital HealthcareLaboratory - Hematology and Cell countson 52-89-7113BqL4e (Bld) [Mass fraction]8 %NOMS HealthcareBasic Metabolic Panelon 04-93-1835TJU/1.73 sq M.predicted MDRD (S/P/Bld) [Vol rate/Area]33.025 mL/min/{1.73_m2}NormalThe [facility]burg Physician GroupComment on above:Performed By: #### BMP, CBC #### [facility] [address] [place] [address] USABasic metabolic 1998 panelon 93-93-9174Hbrlf gap [Moles/Vol]14.3 mmol/L6.0 - 15.0NOMS HealthcareCalcium [Mass/Vol]8.7 mg/dL8.6 - 10.3 mg/dLNOMS HealthcareChloride [Moles/Vol]100 mmol/L98 - 107 mmol/LNOMS HealthcareCO2 [Moles/Vol]23.8 mmol/L21.0 - 31.0 mmol/LNOMS HealthcareCreatinine (U) [Mass/Vol]1.65 mg/dLHigh0.60 - 1.20 mg/dLNOMS HealthcareGFR/1.73 sq M.predicted MDRD (S/P/Bld) [Vol rate/Area]33.025 mL/min/{1.73_m2}[facility] Glucose [Mass/Vol]225 mg/hCKzzr06 - 100 mg/dLNOSC HealthcareComment on above: Random Glucose Reference Range is dependent on time and content of last meal. Glucose of more than 200 mg/dL in a nonstressed, ambulatory subject supports the diagnosis of Diabetes Mellitus. ADA recommended reference range Interpretation and review of laboratory resultsAbnormalNOMS HealthcarePotassium [Moles/Vol]5.1 mmol/L3.5 - 5.1 mmol/LNOMS HealthcareSodium [Moles/Vol]133 mmol/L Pyi083 - 145 mmol/LNOMS HealthcareUrea nitrogen [Mass/Vol]51 mg/dLHigh7 - 25 mg/dLNOSC HealthcareNOMS HealthcareBasophils [#/volume] in Blood by Automated countOrdered By: Alexis Gilmore on 22-80-3086Nbhgzxgbb (Bld) [#/Vol]0.1 10*3/uL Normal0.0-0.2FCincinnati Children's Hospital Medical CenterComment on above:Result Comment: PERFORMED BY: [facility] [address] [place] [address] PATHOLOGIST LOOM CHECKER ARCHIE MENDOZA M.D.Performed By: #### BMP, CBC #### [facility] [address] [place] [address] USABasophils/100 leukocytes in Blood by Automated count Ordered By: Alexis Gilmore on 08-27-1939Hxpgpdqbs/100 WBC (Bld)0.8 %Normal. [facility] - [facility] SouthComment on above:Performed By: #### BMP, CBC #### [facility] [address] [place] [address] USACBC W Auto Differential panel (Bld)on 43-24-4842Bucxuctww (Bld) [#/Vol]0.1 10*3/uL0.0 - 0.2 10*3/uLNOMS HealthcareBasophils/100 WBC Manual cnt (Syn fld)0.8 %.[facility] HospitalEosinophils (Bld) [#/Vol]0.3 10*3/uL0.0 - 0.45 10*3/uLNOMS HealthcareEosinophils/100 WBC Manual cnt (Syn fld)3.1 %.[facility] HospitalErythrocyte distribution width (RBC) [Ratio]14.5 %11.9 - 15.3 %[facility] HospitalHematocrit (Bld) [Volume fraction]32 %Low34.0 - 46.4 %[facility] Hemoglobin (Bld) [Mass/Vol]10.9 g/dLLow11.8 - 15.4 g/dLSalem Memorial District Hospital Interpretation and review of laboratory resultsAbnormWellSpan Chambersburg Hospital Lymphocytes (Bld) [#/Vol]3.4 10*3/uL1.00 - 4.8 10*3/uLNOSC Healthcare Lymphocytes/100 WBC Manual cnt (Syn fld)35.4 %.[facility]fieldH (RBC) [Entitic mass]28.6 pg24.7 - 34.3 pgMercy hospital springfieldHC (RBC) [Mass/Vol]34.1 g/dL32.0 - 35.0 g/dLMercy hospital springfieldV (RBC) [Entitic vol]84 fL80 - 100 fLSalem Memorial District Hospital Monocytes (Bld) [#/Vol]1 10*3/uLHigh0.0 - 0.8 10*3/uLSalem Memorial District Hospital Monocytes+Macrophages/100 WBC Manual cnt (Syn fld)10.1 [...] Serum or PlasmaOrdered By: Alexis Gilmore on 25-77-4396Aswjyhj [Mass/Vol]8.7 mg/dLNormal8.6-10.3FCincinnati Children's Hospital Medical CenterComment on above:Result Comment: PERFORMED BY: [place] [address] PATHOLOGIST LOOM CHECKER ARCHIE MENDOZA M.D.Performed By: #### BMP, CBC #### [facility] [address] [place] [address] USACarbon dioxide, total [Moles/volume] in Serum or Plasma Ordered By: Alexis Gilmore on 52-23-3843VR2 [Moles/Vol]23.8 mmol/LNormal 21.0-31.0[facility] SouthComment on above:Performed By: #### BMP, CBC #### [facility] [address] [place] [address] USAChloride [Moles/volume] in Serum or PlasmaOrdered By: Alexis Gilmore on 57-01-7810Zdrndyop [Moles/Vol]100 mmol/FIzusyx49-563MmkomvfpwSelect Medical Specialty Hospital - Columbus SouthComment on above:Performed By: #### BMP, CBC #### [facility] [address] [place] [address] USAComplete Blood Count Auto Diffon 82-90-6166Bmum Corpuscular HGB Conc34.1 g/eEHmjrjw73.0-35.0The [facility] Physician GroupComment on above:Performed By: #### BMP, CBC #### [facility] [address] [place] [address] USANRBC%0.1 /100{WBC}Normal0-0.5The [facility] Comment on above:Performed By: #### BMP, CBC #### [place] [address] USAWhite Blood Count9.5 [CFU]/mLNormal3.8-11.6The [facility] Physician [facility] HospitalComment on above:Performed By: #### BMP, CBC #### [facility] [address] [place] [address] USACreatinine [Mass/volume] in Serum or PlasmaOrdered By: Alexis Gilmore on 15-87-8088Mqrntfbuur [Mass/Vol]1.65 mg/dLHigh0.60-1.20 [facility] SouthComment on above:Performed By: #### BMP, CBC #### [place] [address] USAECG 12 lead ECGon 80-18-2363SUC 12 lead ECGDAYTON CHILDREN[place] [address] Electrocardiograph Report Signed Patient: Diann Patel MR#: [id number] 525 : 1955 Acct:[id number] Age/Sex: 70 / F ADM Date: 07/19/25 Loc: PS Room: Type: [facility] Attending Dr: Alexis Gilmore DPM Ordering Provider: [...] in Anterolateral leads Confirmed by Valente Ramirez ([id number]) on 07/20/2025 8:47:41 AM Referred By: Electronically Signed By: Valente Ramirez Transcribed By: MUS Signed By Valente Ramirez MD 07/20/25 0847[facility] Physician GroupEosinophils [#/volume] in Blood by Automated countOrdered By: Alexis Gilmore on 51-73-6692Bqoslqpoikp (Bld) [#/Vol]0.3 10*3/uLNormal0.0-0.45[facility] SouthComment on above:Performed By: #### BMP, CBC #### [facility] [address] [place] [address] USAEosinophils/100 leukocytes in Blood by Automated count Ordered By: Alexis Gilmore on 99-11-6120Hsnklpqxzsd/100 WBC (Bld)3.1 %Normal. [facility] SouthComment on above:Performed By: #### BMP, CBC #### [facility] [address] [place] [address] USAErythrocyte distribution width [Ratio] by Automated count Ordered By: Alexis Gilmore on 69-24-7842Tpdojmuaxlu distribution width (RBC) [Ratio]14.5 %Cwniou53.9-15.3FCincinnati Children's Hospital Medical CenterComment on above: Performed By: #### BMP, CBC #### [facility] [address] [place] [id number] USAErythrocytes [#/volume] in Blood by Automated countOrdered By: Alexis Gilmore on 10-10-6080EXR (Bld) [#/Vol]3.82 10*6/uLNormal3.60-5.00 [facility] SouthComment on above:Performed By: #### BMP, CBC #### [facility] [address] [place] [id number] USAGlomerular filtration rate [Volume Rate/Area] in Serum, Plasma or Blood by CreatinineOrdered By: Alexis Gilmore on 16-65-5967Qwldpoujkh filtration rate [Volume Rate/Area] in Serum, Plasma or Blood by Vjjbaeecgw36.025 mL/MinSelect Medical Specialty Hospital - Columbus SouthGlucose [Mass/volume] in Serum or Plasma Ordered By: Alexis Gilmore on 98-10-1241Pxgtevz [Mass/Vol]225 mg/bORspo55-535 [facility] SouthComment on above:ADA recommended reference rangeRandom Glucose Reference [...] reference rangePerformed By: #### BMP, CBC #### [place] [id number] USAHematocrit [Volume Fraction] of Blood by Automated count Ordered By: Alexis Gilmore on 04-97-9055Hukfonaums (Bld) [Volume fraction]32.0 % Low34.0-46.4FCincinnati Children's Hospital Medical CenterComment on above:Performed By: #### BMP, CBC #### [place] [id number] USAHemoglobin [Mass/volume] in BloodOrdered By: Alexis Gilmore on 22-06-3811Txvpxkvrzn (Bld) [Mass/Vol]10.9 g/dLLow11.8-15.4FCincinnati Children's Hospital Medical CenterComment on above:Performed By: #### BMP, CBC #### [place] [id number] USALeukocytes [#/volume] corrected for nucleated erythrocytes in Blood by Automated counOrdered By: Alexis Gilmore on 93-66-7730QJB corrected for nucl RBC Auto (Bld) [#/Vol]9.5 10*3/uL3.8-11.6FCincinnati Children's Hospital Medical CenterLeukocytes [#/volume] in Blood by Automated countOrdered By: Alexis Gilmore on 66-29-8793YDI (Bld) [#/Vol]9.5 10*3/uLNormal3.8-11.6FCincinnati Children's Hospital Medical CenterComment on above:Performed By: #### BMP, CBC #### [facility] [address] [place] [address] USALymphocytes [#/volume] in Blood by Automated countOrdered By: Alexis Gilmore on 88-80-8900Mnidolrwubw (Bld) [#/Vol]3.4 10*3/uLNormal 1.00-4.8[facility] SouthComment on above:Performed By: #### BMP, CBC #### [facility] [address] [place] [id number] USALymphocytes/100 leukocytes in Blood by Automated count Ordered By: Alexis Gilmore on 00-50-1209Gbzupvhtzwy/100 WBC (Bld)35.4 %Normal. [facility] SouthComment on above:Performed By: #### BMP, CBC #### [facility] [address] [place] [id number] [facility] [Entitic mass] by Automated countOrdered By: Alexis Gilmore on 78-33-9643JMR (RBC) [Entitic mass]28.6 ytEtmptk04.7-34.3FCincinnati Children's Hospital Medical CenterComment on above:Performed By: #### BMP, CBC #### [facility] [address] [place] [id number] [facility] Auto (RBC) [Mass/Vol]Ordered By: Alexis Gilmore on 65-96-8278TENK (RBC) [Mass/Vol]34.1 g/dL32.0-35.0[facility] SouthMCV [Entitic volume] by Automated countOrdered By: Alexis Gilmore on 63-86-5784YOD (RBC) [Entitic vol]84.0 aMSebboy45-771FoicqbseaSelect Medical Specialty Hospital - Columbus SouthComment on above:Performed By: #### BMP, CBC #### [facility] [address] [place] [address] USAMonocytes [#/volume] in Blood by Automated countOrdered By: Alexis Gilmore on 14-51-4254Vgaucomsz (Bld) [#/Vol]1.0 10*3/uLHigh0.0-0.8 [facility] Columbus SouthComment on above:Performed By: #### BMP, CBC #### [facility] [address] [place] [id number] USAMonocytes/100 leukocytes in Blood by Automated count Ordered By: Alexis Gilmore on 59-03-4441Qkdfytgch/100 WBC (Bld)10.1 %Normal. [facility] - Columbus SouthComment on above:Performed By: #### BMP, CBC #### [place] [address] USANeutrophils [#/volume] in Blood by Automated countOrdered By: Alexis Gilmore on 79-84-2876Hjurvsccmlo (Bld) [#/Vol]4.8 10*3/uLNormal 1.8-7.7FCincinnati Children's Hospital Medical CenterComment on above:Performed By: #### BMP, CBC #### [facility] [address] [place], [place] [address] USANeutrophils/100 leukocytes in Blood by Automated count Ordered By: Alexis Gilmore on 97-49-7820Udmranwcowj/100 WBC (Bld)50.6 %Normal. [facility] - Columbus SouthComment on above:Performed By: #### BMP, CBC #### [facility] [address] [place], [place] [address] USANo Panel InformationOrdered By: Alexis Gilmore on 24-55-0947Sqgeqssb Creatinine Clearance (ChemN/AFCincinnati Children's Hospital Medical CenterNucleated erythrocytes [Presence] in Blood by Automated countOrdered By: Alexis Gilmore on 51-92-5377Ygmnhxwon RBC Auto Ql (Bld)0.1 /100{WBC}0-0.5 [facility] Columbus SouthPlatelet mean volume [Entitic volume] in Blood by Automated countOrdered By: Alexis Gilmore on 84-48-8506Byfvaulk mean volume (Bld) [Entitic vol]9.0 fLNormal6.3-10.7FCincinnati Children's Hospital Medical CenterComment on above:Performed By: #### BMP, CBC #### [facility] [address] [place] [address] USAPlatelets [#/volume] in Blood by Automated countOrdered By: Alexis Gilmore on 68-11-3158Wrhovbvni (Bld) [#/Vol]215 10*3/yDXcjgvc744-336 [facility] Columbus SouthComment on above:Performed By: #### BMP, CBC #### [facility] [address] [place] [address] USAPotassium [Moles/volume] in Serum or PlasmaOrdered By: Alexis Gilmore on 07-68-3453Fjkusrrwp [Moles/Vol]5.1 mmol/LNormal3.5-5.1 [facility] Columbus SouthComment on above:Performed By: #### BMP, CBC #### [facility] [address] [place] [address] USASerum or plasma anion gap determinationOrdered By: Alexis Gilmore on 43-68-3181Twwjx gap [Moles/Vol]14.3 mmol/LNormal6.0-15.0 [facility] - Columbus SouthComment on above:Performed By: #### BMP, CBC #### [facility] [address] [place] [address] USASodium [Moles/volume] in Serum or PlasmaOrdered By: Alexis Gilmore on 24-04-7194Ftagip [Moles/Vol]133 mmol/GBun190-249HzvsjmqdfSelect Medical Specialty Hospital - Columbus SouthComment on above:Performed By: #### BMP, CBC #### [facility] [address] [place] [address] USAUrea nitrogen [Mass/volume] in Serum or PlasmaOrdered By: Alexis Gilmore on 09-00-3351Ntgu nitrogen [Mass/Vol]51 mg/dLHigh7-25[facility] Columbus SouthComment on above:Performed By: #### BMP, CBC #### [place] [address] USAPATHOLOGY REQUEST FOR LAB CORPon 81-44-8706BPQXXSEZH REQUEST FOR LAB [facility] Health ClarendonComment on above:See report. Scanned copy available in EMR.GI SPECIMENAurora Medical Center in Summitillary blood glucose measurement by glucometer (mass/volume)Ordered By: Dale Fox on 06-09-2025 Glucose [Mass/Vol]269 mg/dLNoRegency Hospital Cleveland WestComment on above:Random Glucose Reference Range is dependent [...] Point of Care testing ,GLUCOSE POCT GLUCOMETERSon 81-72-9513NZCUQFS6Tsa1: Cleaned MeterSalem Memorial District Hospital Glucose [Mass/Vol]269 mg/dLSalem Memorial District HospitalComment on above:Random Glucose Reference Range is dependent on time and content of last meal. Glucose of more than 200 mg/dL in a nonstressed, ambulatory subject supports the diagnosis of Diabetes Mellitus. NOMS HealthcareGlucose Poct Glucometerson 08-84-7745Ivirlzb9Scv8: Cleaned Meter NormalThe Atrium Health Harrisburg Physician GroupComment on above:Result Comment: PERFORMED BY: [place] [address] PATHOLOGIST LOOM CHECKER ARCHIE MENDOZA M.D.Performed By: #### GLULS #### Point of Care testing ,No Panel InformationOrdered By: Dale Fox on 57-51-4399Sroulhgrmpvgf Pathology TestSee [facility]UM[facility] Barnesville HospitalComment on above:See report. Scanned copy available in EMR.Bedside Glucose CommentGlu2: cleaned meter [facility] SouthPathology Request for Lab Corpon 06-09-2025 Pathology Request for Lab [facility] Physician GroupComment on above:Order Comment: GI SPECIMENResult Comment: See report. Scanned copy available in EMR. PERFORMED BY: [facility] [place] [id number] PATHOLOGIST LOOM CHECKER ARCHIE MENDOZA M.D.Performed By: #### PATH TO [facility] #### [place] [id number] USAOffice Visiton 24-64-2423Voupgr-up [id number] Diann Patel 1955 F Date Provider Department Center 05/30/2025 VALENTE BALTAZAR CONCEPCIÓN [place] Family History Problem Relation Age of Onset Diabetes Mother Cancer Mother Heart disease Father Alcohol abuse Brother Diabetes Brother Family Status - Relation Status Age at Mother Father Sister Brother Level of Service:56205 [place] OFFICE/OUTPATIENT ESTABLISHED MOD [facility]DM [facility] DaytonOffice Visiton 03-44-6731Edvffo-up visit [id number] Diann Patel 1955 F Date Provider Department Center 04/26/2025 62707-BDFCJONTEGET NORRIS*[facility] Medical Pavi Family History Problem Relation Age of Onset Diabetes Mother Cancer Mother Heart disease Father Alcohol abuse Brother Diabetes Brother Family Status - Relation Status Age at Mother Father Sister Brother Level of Service:21545 [place] OFFICE/OUTPATIENT NEW MODERATE MDM 45 MINUTES Reason for Visit and Comments: New Patient [632] Anemia [330614]NormalRiverview Health InstituteHbA1c (Bld) [Mass fraction]on 34-94-2199Ttfwsnkbuagsrv and review of laboratory resultsAbnormal Formerly [facility] CenterLaboratory - Hematology and Cell countson 75-90-6027UfL3y (Bld) [Mass fraction]7.8 %[place] [address] Regarding carotid duplex result from 03/07/2025: MD Maria Antonia Pisano MA Carotid ultrasound showed stable disease. Follow up as planned. Patient informed.NormalRiverview Health InstituteMammography report Ordered By: Manjula Flannery on 45-94-0804Vzxqcbghie imaging studyTRINITY HEALTH SYSTEM [facility] [address] [place] [address] [address] [place] [address] Mammography Report Signed Patient: Diann Patel MR#: [id number] : 1955 Acct:[id number] Age/Sex: 69 / F Adm Date: 5 Loc: [place] Room: Type: [facility] Attending Dr: Champ Bell II, MD Ordering Provider: Champ Bell II, MD Date of Service: 03/10/25 Procedure(s): MM special view RT w/CAD; US breast RT limited Accession Number(s): ([id number]) MM/MM special view RT w/CAD: ABN MAMM ([id number]) US/US breast RT limited: R92.8 Copies to: [...] Flannery M.D. 03/10/2025 5:08 PM Dictation Location: [facility] Dictated By: Manjula Flannery MD 03/10/25 1510 Signed By: 03/10/25 7642 [facility] Work Phone: us breast RT limitedon 77-40-7051EZ breast RT limited [facility] [address] [place] [address] Mammography Report Signed Patient: Diann Patel MR#: [id number] : 1955 Acct:[id number] Age/Sex: 69 / F Adm Date: 03/10/25 Loc: [place] Room: Type: [facility] Attending Dr: Champ Bell II, MD Ordering Provider: Champ Bell II, MD Date of Service: 03/10/25 Procedure(s): MM special view RT w/CAD; US breast RT limited Accession Number(s): ([id number]) MM/MM special view RT w/CAD: ABN MAMM ([id number]) US/US breast RT limited: R92.8 Copies to: [...] Flannery M.D. 03/10/2025 5:08 PM Dictation Location: [facility] Dictated By: Manjula Flannery MD 03/10/25 1514 Signed By: 03/10/[address] [place] [address] Physician Group TOMOSYNTHESIS SCREENING BIon 87-48-5144[place]qd[place], [place] [address] Mammography Report Signed Patient: DIANN PATEL MR#: [id number] : 1955 Acct:[id number] Age/Sex: 69 / F ADM Date: 03/03/25 Loc: MAMMO Attending Dr: CHAMP EBLL Ordering Physician: CHAMP BELL Results: Date of Service: 03/03/25 Follow Up: Procedure(s): MM tomosynthesis screening BI Accession Number(s): [id number] cc: CHAMP BELL Patient Name: DIANN PATEL MR#: [id number] : 1955 Exam Date: 03/03/2025 Ordering Doctor: [...] ovarian cancer at age 49. LOCATION: [facility] BREAST COMPOSITION: There are scattered areas of [...] Signed By: 03/03/25 1635 DD/ 1634 TD/TT: Negotiator Sales:TBHRadiology, Radiologist, MD - 03/03/2025 [place] [address] Mammography Report Signed Patient: DIANN PATEL MR#: [id number] : 1955 Acct:[id number] Age/Sex: 69 / F ADM Date: 03/03/25 Loc: MAMMO Attending Dr: CHAMP BELL Ordering Physician: CHAMP BELL Results: Date of Service: 03/03/25 Follow Up: Procedure(s): MM tomosynthesis screening BI Accession Number(s): [id number] cc: BELLCHRYSTALCHAMP Patient Name: DIANN PATEL MR#: [id number] : 1955 Exam Date: 03/03/2025 Ordering Doctor: [...] ovarian cancer at age 49. LOCATION: [facility] BREAST COMPOSITION: There are scattered areas of [...] Signed By: 03/03/25 163 DD/ 33 TD/TT: Negotiator Sales: PRIYANKA HealthcareRadiology Study observation (narrative)PRIYANKA [facility] TOMOSYNTHESIS SCREENING BIOrdered By: Radiologist Radiology on 55-76-0464PLYF [employer] Work Phone: Office Visiton 17-30-7400Qjnaqt-up [id number] Diann Patel 1955 Provider Department Center 03/02/2025 VALENTE BALTAZAR CONCEPCIÓN [place] Norma Family History Problem Relation Age of Onset Diabetes Mother Cancer Mother Heart disease Father Alcohol abuse Brother Diabetes Brother Family Status - Relation Status Age at Mother Father Sister Brother Level of Service:72782 [place] OFFICE/OUTPATIENT ESTABLISHED MOD MDM 30 [facility]36on 53-23-034311Ikpypgqnp date: 02/22/25 Call date: 02/23/25 Spoke with: patient HF Follow-up date: 02/25/25 Med reconciliation completed: pt declined Questions/Concerns: Pt denied any SOB or CP. Pt declined to review home meds stating she just reviewed them with someone from her PCP office. Pt is monitoring daily weights and is aware of her follow up telemed visit. No questions or concerns at this time.[facility] YoungstownDocumentationon 02-23-2025 [id number] DakotaawildaPancho arringtonjose Car 1955 Provider Department Center 02/23/2025 DIPAK YEBOAH C [facility] [place] [facility] Family History Problem Relation Age of Onset Diabetes Mother Cancer Mother Heart disease Father Alcohol abuse Brother Diabetes Brother Family Status - Relation Status Age at Mother Father Brother Reason for Visit and Comments: HF inpatient satisfaction survey sent. [Other][facility] YoungstownTelephoneon [id number] Diann Patel Josep 1955 Provider Department Center 02/23/2025 DIPAK YEBOAH HVC [facility] [place] [facility] Family History Problem Relation Age of Onset Diabetes Mother Cancer Mother Heart disease Father Alcohol abuse Brother Diabetes Brother Family Status - Relation Status Age at Mother Father Brother Reason for Visit and Comments: HF post discharge call. [Other][facility]3028-21-481683Bgftbk went bedside and talked with patient about discharge planing and how patient qualified for 2 L nc at night. Patient stated she has no preference of home health care company and is agreeable to for functional tester typewriters to set home oxygen through [email or web address]. Mastic Worker called and talked with Timothy who is with [employer]. Mastic Worker was told to fax over clinicals and to tell patient to call when she leaves the hospital. Mastic Worker faxed over Clinicals to [employer] at [phone]. Mastic Worker went bedside and notified/educated the patient on need to call health care solutions as soon as she leaves the hospital. Mastic Worker provided [employer] phone number to patient and placed it on the AVS. Patient stated she understands and has no other questions at this time.[facility]30The patient is Moderately Unstable - Medium risk [...] Assess patient???s ability to void and empty bladderNormalUniversKettering Health Washington TownshipBASIC METABOLIC PANELon 67-06-8881Dkoip gap [Moles/Vol]12 mmol/LNormal7-20UnMemorial Health System Marietta Memorial HospitalComment on above:Performed By: #### [id number] #### [facility] [address] [place], [place] [address]Emrhdon [Mass/Vol]9.3 mg/dLNormal8.6-10.3UnMemorial Health System Marietta Memorial HospitalComment on above:Performed By: #### [id number] #### [facility] [address] [place], [place] [address]Plxmwezr [Moles/Vol]98 mmol/TIdpqze78-086HqfwewtbonMemorial Health System Marietta Memorial HospitalComment on above:Performed By: #### [id number] #### [facility] ([facility] [address] [place], [place] [address]AU9 [Moles/Vol]30 mmol/MEkjvdx94-24NtrannzsjlMemorial Health System Marietta Memorial HospitalComment on above:Performed By: #### [id number] #### [facility] ([facility] [address] [place], [place] [address]Vljcoznvfh [Mass/Vol]1.06 mg/dLNormal0.60-1.20UnMemorial Health System Marietta Memorial HospitalComment on above:Performed By: #### [id number] #### [facility] [address] [place], [place] [address]NHZZIILXBX FILTRATION RATE ML/MIN/1.73 SQ M.FKTBDLFMZ00.5 mL/min/1.73m*2Low>60.0UnMemorial Health System Marietta Memorial HospitalComment on above:Result Comment: [facility]???s estimated glomerular filtration rate (eGFR) will no [...] affect anyone group of individuals.Performed By: #### [id number] #### [facility] [address] [place], [place] [address]Tkrqejv [Mass/Vol]162 mg/xGTtgs61-650TeeyswuscgMemorial Health System Marietta Memorial HospitalComment on above:Performed By: #### [id number] #### [facility] [address] [place], [place] [address]Llecynqtl [Moles/Vol]4.1 mmol/LNormal3.5-5.1UnMemorial Health System Marietta Memorial HospitalComment on above:Performed By: #### [id number] #### [facility] [address] [place], [place] [address]Gdwkjy [Moles/Vol]136 mmol/MEkwywy159-229PwudwfltzpMemorial Health System Marietta Memorial HospitalComment on above:Performed By: #### [id number] #### [facility] [address] [place], [place] [address]Yiyb nitrogen [Mass/Vol]45 mg/dLHigh7-25UnMemorial Health System Marietta Memorial HospitalComment on above:Performed By: #### [id number] #### [facility] [address] [place], [place] [address]DKHH NITROGEN/CREATININE (MASS RATIO) IN SER/PLAS42.5Normal [facility] InstituteComment on above:Performed By: #### [id number] #### [facility] ([facility]) [address] [place], [place] [address]XIKNNBVgx 00-87-7767LYXVDAJAgdvv study ordered for OPNormal Riverview Health InstituteCONSULTdischarge planning: to return Home with family Patient [...] at this time - follow up with [facility] on AVSNormalUniversKettering Health Washington TownshipDocumentationon [id number] DenilsonPancho arringtonjose Car 1955 F Date Provider Department Center 02/22/2025 MARIA VICTORIA MEDINA IMED RX [facility] C Family History Problem Relation Age of Onset Diabetes Mother Cancer Mother Heart disease Father Alcohol abuse Brother Diabetes Brother Family Status - Relation Status Age at Mother Father Brother Reason for Visit and Comments: iMEDS Bedside Medication Delivery and Counseling [Other]NormalUnMemorial Health System Marietta Memorial HospitalNURSNOTEon 58-07-2474HDWOQJMYFyrrnyrjr trend reviewed and patient qualifies for 2 liters nocturnal oxygen per nasal cannula per minute d/t CHF. Patient is aware of the benefit and need of oxygen.NormalUnMemorial Health System Marietta Memorial HospitalPOCT GLUCOSE METER UNSOLICITED RESULTSon 73-26-3231Irthxdv [Mass/Vol]261 mg/jIPpcq74-275SekgfdydqlMemorial Health System Marietta Memorial HospitalComment on above:Order Comment: Waived Testing in the ED is performed under the ED CLIA certificate #[id number].Result Comment: [email or web address] Performed By: #### [id number] ####[facility] ([facility])[address] [place], [place] [address]Kdclzfd [Mass/Vol]169 mg/fWUagl84-912DjqkckjamqMemorial Health System Marietta Memorial HospitalComment on above:Order Comment: Waived Testing in the ED is performed under the ED CLIA certificate #[id number].Result Comment: [email or web address] Performed By: #### [id number] #### [facility] ([facility]) [address] [place], [place] [address]ei 74-36-417301Yzq patient is Moderately Unstable - Medium risk [...] ordered Assess for signs of decreased cardiac outputNoalUniThe [facility] of [facility]30Daily Case Management Update Multidisciplinary rounds have been [...] Question: Reason for PT? Answer: Weakness 02/21/25 0833NormalUniversKettering Health Washington Township30The patient is Moderately Stable - Low risk [...] functional status, cognitive ability or social support systemNormalUniversKettering Health Washington TownshipBASIC METABOLIC PANELon 20-44-3438Tzinv gap [Moles/Vol]11 mmol/LNormal7-20UnMemorial Health System Marietta Memorial HospitalComment on above:Performed By: #### [id number] ####[facility] ([facility])[address] [place], [place] [address]Hytxunv [Mass/Vol]9.2 mg/dLNormal 8.6-10.3UnMemorial Health System Marietta Memorial HospitalComment on above:Performed By: #### [id number] ####[facility] ([facility])[address] [place] [address]Bemzlvlc [Moles/Vol]100 mmol/KZrjgte18-234WumtzzosjgMemorial Health System Marietta Memorial HospitalComment on above:Performed By: #### [id number] ####[facility])[address] [place] [address]KO2 [Moles/Vol]29 mmol/QTiuhlu00-95EtucvqxvjtMemorial Health System Marietta Memorial HospitalComment on above:Performed By: #### [id number] ####[facility])[address] [place] [address]Kjpszjhnze [Mass/Vol]0.94 mg/dLNormal 0.60-1.20UnMemorial Health System Marietta Memorial HospitalComment on above:Performed By: #### [id number] ####[facility])[address] [place] [address]OHDJHFKJFM FILTRATION RATE ML/MIN/1.73 SQ M.CPRQXTGRR63.3 mL/min/1.73m*2Normal>60.0 [facility] InstituteComment on above:Result Comment: [facility]???s estimated glomerular filtration rate (eG FR) will [...] group of individuals. Performed By: #### [id number] ####[facility])[address] [place] [address]Fxgffql [Mass/Vol]220 mg/qZHrgj49-739QxaquysqcuMemorial Health System Marietta Memorial HospitalComment on above:Performed By: #### [id number] ####[facility])[address] [place] [address]Ecjjlfagm [Moles/Vol]4.0 mmol/LNormal 3.5-5.1UnMemorial Health System Marietta Memorial HospitalComment on above:Performed By: #### [id number] ####[facility] ([facility])[address] [place], [place] [address]Aedarf [Moles/Vol]136 mmol/IAiywen857-882AencnwyyafMemorial Health System Marietta Memorial HospitalComment on above:Performed By: #### [id number] ####[facility] ([facility])[address] [place], [place] [address]Rsdd nitrogen [Mass/Vol]42 mg/dLHigh7-25UnMemorial Health System Marietta Memorial HospitalComment on above:Performed By: #### [id number] ####[facility])[address] [place], [place] [address]HWKC NITROGEN/CREATININE (MASS RATIO) IN SER/PLAS44.7NormalUniversKettering Health Washington TownshipComment on above: Performed By: #### [id number] ####[facility])[address] [place], [place] [address]QUPdx 46-71-0864Yuagocpvsve distribution width (RBC) [Ratio]15.3 %High 11.5-15.0UnMemorial Health System Marietta Memorial HospitalComment on above:Performed By: #### [id number] ####[facility])[address] [place] [address] ERYTHROCYTE MEAN CORPUSCULAR HEMOGLOBIN CONCENTRATION (G/DL) BY HCMPJOTLC52.5 g/dLLow32.0-35.0UnMemorial Health System Marietta Memorial HospitalComment on above:Performed By: #### [id number] ####[facility])[address] [place] [address] Hematocrit (Bld) [Volume fraction]34.1 %Low36.0-45.0UnMemorial Health System Marietta Memorial HospitalComment on above:Performed By: #### [id number] ####[facility] ([facility])[address] [place], [place] [address]Wpcpzixvdq (Bld) [Mass/Vol]10.4 g/dL Low12.0-15.0UnMemorial Health System Marietta Memorial HospitalComment on above:Performed By: #### [id number] ####[facility] ([facility])[address] [place] [address]AMZ (RBC) [Entitic mass]27.3 pkSyybbs73.0-33.0UnMemorial Health System Mari[facility] Memorial Hospital Comment on above:Performed By: #### [id number] ####[facility])[address] [place] [address]BOX (RBC) [Entitic vol]89.5 zCSrhetv23.0-98.0 [facility] InstituteComment on above:Performed By: #### [id number] ####[facility])[address] [place] [address]XVMUCHAQK (10*3/UL) IN BLOOD AUTOMATED OCIBU063 10*3/nPRklplc211-193YxohhqjkscMemorial Health System Marietta Memorial HospitalComment on above:Performed By: #### [id number] ####[facility] [place] [address]IAH (Bld) [#/Vol]3.81 10*6/uLNormal 3.80-5.00UnMemorial Health System Marietta Memorial HospitalComment on above:Performed By: #### [id number] ####[facility] [place] [address]ELB (Bld) [#/Vol]9.57 10*3/uLNormal4.00-10.60UnMemorial Health System Marietta Memorial HospitalComment on above:Performed By: #### [id number] ####[facility])[address] [place] [address]NXVB GLUCOSE METER UNSOLICITED RESULTSon 03-08-5657Rvcmbth [Mass/Vol]302 mg/dHYcuf07-493ViiqetbpcjMemorial Health System Marietta Memorial HospitalComment on above:Order Comment: Waived Testing in the ED is performed under the ED CLIA certificate #[id number].Result Comment: uzzqkux52Zodffhtgx By: #### [id number] #### [facility] [address] [place] [address]Dusztrm [Mass/Vol]246 mg/yUMnba18-299HcutlzojpwMemorial Health System Marietta Memorial HospitalComment on above:Order Comment: Waived Testing in the ED is performed under the ED CLIA certificate #[id number].Result Comment: [email or web address] Performed By: #### [id number] #### [facility] ([facility]) [address] [place] [address]Xhgrxun [Mass/Vol]283 mg/bOWpsq79-285XvcucphxgyRiverview Health InstituteComment on above:Order Comment: Waived Testing in the ED is performed under the ED CLIA certificate #[id number].Result Comment: [email or web address] Performed By: #### [id number] #### [facility] ([facility]) [address] [place], [place] [address]Dcjcsmm [Mass/Vol]160 mg/cZPoyz00-072MrrtddawnxRiverview Health InstituteComment on above:Order Comment: Waived Testing in the ED is performed under the ED CLIA certificate #[id number].Result Comment: Performed By: #### [id number] #### [facility] [address] [place] [id number] [id number] patient is Moderately Stable - Low risk [...] and maintained or improved Outcome: ProgressingNormalUniversity of [facility]30The patient is Moderately Stable - Low risk [...] output Monitor cardiac rate and rhythmNormalUniversity of Houston Methodist Baytown HospitalAPTTon 54-99-8370PXEBYQTGH PARTIAL THROMBOPLASTIN TIME IN PPP BY COAGULATION ASSAY36.0 VdeyoyoUzgd67.0-35.0UnMemorial Health System Marietta Memorial HospitalComment on above:Order Comment: Waived Testing in the ED is performed under the ED CLIA certificate #[id number].Result Comment: Clinical significance of the APTT is questionable in the presence of heparin.Performed By: #### [id number] #### [facility] [address] [place], [place] [address]THJJYG BLOOD X 1, STOOLon 68-45-1546CTNRGHDYCT GASTROINTESTINAL PRESENCE IN STOOLNegativeNormalNegative, None DetectedUnMemorial Health System Marietta Memorial HospitalComment on above:Performed By: #### [id number] #### [facility] [address] [place], [place] [address]BOAQ GLUCOSE METER UNSOLICITED RESULTSon 89-32-9715Svmuptb [Mass/Vol]247 mg/bQMjey41-255BxgvvecznhMemorial Health System Marietta Memorial HospitalComment on above:Order Comment: Waived Testing in the ED is performed under the ED CLIA certificate #[id number].Result Comment: [id number] By: #### [id number] #### [facility] [address] [place], [place] [address]Rqnltty [Mass/Vol]189 mg/uYKuvx88-696WxlvdfrtrmMemorial Health System Marietta Memorial HospitalComment on above:Order Comment: Waived Testing in the ED is performed under the ED CLIA certificate #[id number].Result Comment: [email or web address] Performed By: #### [id number] #### [facility] [address] [place], [place] [address]Qabxvlx [Mass/Vol]186 mg/sFTbtz49-911IixfqzijxbMemorial Health System Marietta Memorial HospitalComment on above:Order Comment: Waived Testing in the ED is performed under the ED CLIA certificate #[id number].Result Comment: [email or web address] Performed By: #### [id number] ####[facility])[address] [place] [address]Ymcbhxn [Mass/Vol]173 mg/mOSxlp83-494OcuxzyhfskMemorial Health System Marietta Memorial HospitalComment on above:Order Comment: Waived Testing in the ED is performed under the ED CLIA certificate #[id number].Result Comment: [email or web address] Performed By: #### [id number] ####[facility])[address] [place] [address]ye [id number] patient is Moderately Stable - Low risk [...] facility with appropriate resources Outcome: ProgressingNormalUniversity of [facility] 02-19-2025 ACTIVATED PARTIAL THROMBOPLASTIN TIME IN PPP BY COAGULATION ASSAY37.5 Seconds High25.0-35.0UnMemorial Health System Marietta Memorial HospitalComment on above:Order Comment: Waived Testing in the ED is performed under the ED CLIA certificate #[id number]. Result Comment: Clinical significance of the APTT is questionable in the presence of heparin.Performed By: #### [id number] #### [facility] [address] [place] [address]JNXSU METABOLIC PANELon 56-03-3086Otepu gap [Moles/Vol]9 mmol/L Normal7-20UnMemorial Health System Marietta Memorial HospitalComment on above:Performed By: #### [id number] ####[facility])[address] [place], [place] [address]Arindjj [Mass/Vol]8.3 mg/dLLow8.6-10.3UnMemorial Health System Marietta Memorial HospitalComment on above:Performed By: #### [id number] ####[facility])[address] [place] [address]Fgtfhenm [Moles/Vol]106 mmol/BCuufua41-596HybevvlsfjMemorial Health System Marietta Memorial HospitalComment on above:Performed By: #### [id number] ####[facility])[address] [place] [address]KO8 [Moles/Vol]25 mmol/LNormal 21-31UnMemorial Health System Marietta Memorial HospitalComment on above:Performed By: #### [id number] ####[facility])[address] [place] [address]Lwowwejrjt [Mass/Vol]1.13 mg/dLNormal0.60-1.20UnMemorial Health System Marietta Memorial HospitalComment on above:Performed By: #### [id number] ####[facility])[address] [place] [address]GXIAUGXCMZ FILTRATION RATE ML/MIN/1.73 SQ M.AUCYJWYMT38.3 mL/min/1.73m*2Low>60.0UnMemorial Health System Marietta Memorial HospitalComment on above:Result Comment: [facility]???s estimated glomerular filtration rate (eGFR) will no [...] anyone group of individuals.Performed By: #### [id number] ####[facility])[address] [place] [address]Uebrxtu [Mass/Vol]227 mg/vLDrzm05-090SvlxgvuvpaMemorial Health System Marietta Memorial HospitalComment on above:Performed By: #### [id number] ####[facility])[address] [place] [address]Fweotbroe [Moles/Vol]4.4 mmol/L Normal3.5-5.1UnMemorial Health System Marietta Memorial HospitalComment on above:Performed By: #### [id number] ####[facility])[address] [place] [address] Sodium [Moles/Vol]136 mmol/EZrajey942-837TdhcqbhyurMemorial Health System Marietta Memorial Hospital Comment on above:Performed By: #### [id number] ####[facility])[address] [place] [address]Frqn nitrogen [Mass/Vol]39 mg/dLHigh7-25UnMemorial Health System Marietta Memorial HospitalComment on above:Performed By: #### [id number] ####[facility])[address] [place] [address]WHEL NITROGEN/CREATININE (MASS RATIO) IN SER/PLAS34.5NormalUniversKettering Health Washington TownshipComment on above:Performed By: #### [id number] ####[facility])[address] [place] [address]SWRif 22-03-5839Moplezvfoab distribution width (RBC) [Ratio] 16.0 %High11.5-15.0UnMemorial Health System Marietta Memorial HospitalComment on above:Performed By: #### [id number] ####[facility])[address] [place] [address]QTGWVECMUKO MEAN CORPUSCULAR HEMOGLOBIN CONCENTRATION (G/DL) BY AUTOMATED 30.8 g/dLLow32.0-35.0UnMemorial Health System Marietta Memorial HospitalComment on above: Performed By: #### [id number] ####[facility])[address] [place] [address]Fqfnxdnvai (Bld) [Volume fraction]33.4 %Low36.0-45.0 [facility] InstituteComment on above:Performed By: #### [id number] ####[facility] ([facility])[address] [place] [address]Dhjdnfzmdv (Bld) [Mass/Vol]10.3 g/dLLow12.0-15.0UnMemorial Health System Marietta Memorial HospitalComment on above:Performed By: #### [id number] ####[facility])[address] [place] [address]PPK (RBC) [Entitic mass]28.3 qhLmkvry44.0-33.0UnMemorial Health System Marietta Memorial HospitalComment on above:Performed By: #### [id number] ####[facility])[address] [place] [address]LZG (RBC) [Entitic vol] 91.8 nWPrppdk32.0-98.0UnMemorial Health System Marietta Memorial HospitalComment on above: Performed By: #### [id number] ####[facility])[address] [place] [address]HKYYRSUGC (10*3/UL) IN BLOOD AUTOMATED [id number] 10*3/uLNormal 150-400UnMemorial Health System Marietta Memorial HospitalComment on above:Performed By: #### [id number] ####[facility])[address] [place] [address]EFA (Bld) [#/Vol]3.64 10*6/uLLow3.80-5.00UnMemorial Health System [facility] Memorial HospitalComment on above:Performed By: #### [id number] ####[facility])[address] [place] [address]DOG (Bld) [#/Vol]10.27 10*3/uLNormal4.00-10.60UnMemorial Health System [facility] Memorial HospitalComment on above:Performed By: #### [id number] ####[facility])[address] [place] [address]GEBAWRFNZHsy 02-19-2025 Hemoglobin (Bld) [Mass/Vol]10.5 g/dLLow12.0-15.0UnMemorial Health System Marietta Memorial HospitalComment on above:Performed By: #### [id number] ####[facility])[address] [place] [address]GSZI GLUCOSE METER UNSOLICITED RESULTS on 13-86-1828Rbzwtis [Mass/Vol]280 mg/rBNiml90-116VnhcgsqytqRiverview Health InstituteComment on above:Order Comment: Waived Testing in the ED is performed under the ED CLIA certificate #[id number].Result Comment: ainghvz6Wboszymwh By: #### [id number] ####[facility] ([facility])[address] [place] [address] Glucose [Mass/Vol]261 mg/vBTvxw69-428IotcempwxyRiverview Health InstituteComment on above:Order Comment: Waived Testing in the ED is performed under the ED CLIA certificate #[id number].Result Comment: eqnvnjw0Yhjlyraen By: #### [id number] #### [facility]) [address] [place], [place] [address]Dgbcbvx [Mass/Vol]241 mg/qLHqfi28-963MaztytbyvlRiverview Health InstituteComment on above:Order Comment: Waived Testing in the ED is performed under the ED CLIA certificate #[id number].Result Comment: [email or web address] Performed By: #### [id number] ####[facility] ([facility])[address] [place], [place] [address]Jbatsvu [Mass/Vol]246 mg/mNJjai59-965VuhlnimqruRiverview Health InstituteComment on above:Order Comment: Waived Testing in the ED is performed under the ED CLIA certificate #[id number].Result Comment: [email or web address] Performed By: #### [id number] #### [facility] ([facility]) [address] [place], [place] [address]36yb 49-69-141962Fpk patient is Moderately Stable - Low risk [...] and behaviors that affect risk of falls [place] fall precautions as indicated by assessment Educate [...] are exacerbated and prevent overall improvement and dischargeNormalUniversKettering Health Washington Township30The patient is Moderately Stable - Low risk of patient condition declining or worsening The patient's goals for the shift include Comfort/Rest The clinical goals for the shift include Stable vital signsNormalUniversSuburban Community Hospital [facility] 11-07-7577SHCSBPXAJ PARTIAL THROMBOPLASTIN TIME IN PPP BY COAGULATION ASSAY57.3 YgebuftHaln58.0-35.0UnMemorial Health System Marietta Memorial HospitalComment on above:Order Comment: Check aPTT every 6 hours while on heparin infusion, or per protocol.Result Comment: Clinical significance of the APTT is questionable in the presence of heparin.Performed By: #### [id number] #### [facility]) [address] [place], [place] [address]KHXIUSPDR PARTIAL THROMBOPLASTIN TIME IN PPP BY COAGULATION ASSAY34.4 XjogprjLbnlhj05.0-35.0UnMemorial Health System Marietta Memorial HospitalComment on above:Order Comment: Waived Testing in the ED is performed under the ED CLIA certificate #[id number].Result Comment: Clinical significance of the APTT is questionable in the presence of heparin.Performed By: #### [id number] #### [facility] [address] [place] [address]Z-MOBS NATRIURETIC PEPTIDEon 27-70-2377Pazheptwjks peptide B (Bld) [Mass/Vol]336 pg/mLHigh0-100UnMemorial Health [facility] Memorial HospitalComment on above:Performed By: #### [id number] ####[facility])[address] [place] [address]JPDDF METABOLIC PANELon 20-64-5278Fkwya gap [Moles/Vol]13 mmol/LNormal7-20UnMemorial Health System [facility] Memorial HospitalComment on above:Performed By: #### [id number] #### [facility]) [address] [place] [address]Lznkpdg [Mass/Vol]8.2 mg/dLLow8.6-10.3UnMemorial Health System [facility] Memorial HospitalComment on above:Performed By: #### [id number] #### [facility]) [address] [place] [address]Ijrfmtre [Moles/Vol]107 mmol/IKtjbmt81-037CtmhxnzjxhMemorial Health System Marietta Memorial HospitalComment on above:Performed By: #### [id number] #### [facility] [address] [place] [address]OS8 [Moles/Vol]22 mmol/SUtlaep50-40LgbnawxckkMemorial Health System Marietta Memorial HospitalComment on above:Performed By: #### [id number] #### [facility] [address] [place], [place] [address]Smkqnoxevi [Mass/Vol]1.17 mg/dLNormal0.60-1.20UnMemorial Health System [facility] Memorial HospitalComment on above:Performed By: #### [id number] #### [facility]) [address] [place], [place] [address]AHYVWTJYBU FILTRATION RATE ML/MIN/1.73 SQ M.KUXKWUZUM33.2 mL/min/1.73m*2Low>60.0UnMemorial Health System [facility] Memorial HospitalComment on above:Result Comment: [facility]???s estimated glomerular filtration rate (eGFR) will no [...] affect anyone group of individuals.Performed By: #### [id number] #### [facility] [address] [place], [place] [address]Xslyype [Mass/Vol]182 mg/hJTuhd08-350AgehuopaomMemorial Health System Marietta Memorial HospitalComment on above:Performed By: #### [id number] #### [facility] [address] [place], [place] [address]Hfqszzsle [Moles/Vol]4.5 mmol/LNormal3.5-5.1UnMemorial Health System [facility] Memorial HospitalComment on above:Performed By: #### [id number] #### [facility] [address] [place], [place] [address]Xxujxu [Moles/Vol]137 mmol/ZCuhddj616-582ToyztwlfsvMemorial Health System Marietta Memorial HospitalComment on above:Performed By: #### [id number] #### [facility] [address] [place], [place] [address]Phsj nitrogen [Mass/Vol]40 mg/dLHigh7-25UnMemorial Health System [facility] Memorial HospitalComment on above:Performed By: #### [id number] #### [facility] ([facility]) [address] [place] [address]XMTI NITROGEN/CREATININE (MASS RATIO) IN SER/PLAS34.2Normal [facility] InstituteComment on above:Performed By: #### [id number] #### [facility] [address] [place] [address]HYEac 96-78-0100Dqwiwngkyyp distribution width (RBC) [Ratio]16.1 %High11.5-15.0UnMemorial Health System Marietta Memorial HospitalComment on above:Performed By: #### [id number] ####[facility])[address] [place] [address] ERYTHROCYTE MEAN CORPUSCULAR HEMOGLOBIN CONCENTRATION (G/DL) BY HYKOJMDQN54.5 g/dLLow32.0-35.0UnMemorial Health System Mari[facility] Memorial HospitalComment on above:Performed By: #### [id number] ####[facility])[address] [place] [address] Hematocrit (Bld) [Volume fraction]23.9 %Low36.0-45.0UnMemorial Health System Marietta Memorial HospitalComment on above:Performed By: #### [id number] ####[facility])[address] [place] [address]Bzhjnageid (Bld) [Mass/Vol]7.3 g/dLLow 12.0-15.0UnMemorial Health System [facility] Memorial HospitalComment on above:Performed By: #### [id number] ####[facility])[address] [place] [address]JKV (RBC) [Entitic mass]27.4 lyDhblbs80.0-33.0UnMemorial Health System [facility] Memorial HospitalComment on above:Performed By: #### [id number] ####[facility])[address] [place] [address]GSY (RBC) [Entitic vol]89.8 hFEhfkwu57.0-98.0UnMemorial Health System [facility] Memorial HospitalComment on above:Performed By: #### [id number] ####[facility] ([facility])[address] [place] [address]UGPOUMWFT (10*3/UL) IN BLOOD AUTOMATED CNPUU752 10*3/hWIibmoc222-772MqqmntexhcMemorial Health System [facility] Hospital Comment on above:Performed By: #### [id number] ####[facility] ([facility])[address] [place] [address]NDL (Bld) [#/Vol]2.66 10*6/uLLow3.80-5.00UnMemorial Health System [facility] Memorial HospitalComment on above:Performed By: #### [id number] ####[facility] ([facility])[address] [place] [address]CRV (Bld) [#/Vol]9.77 10*3/uLNormal4.00-10.60UnMemorial Health [facility] Memorial HospitalComment on above: Performed By: #### [id number] ####[facility] ([facility])[address] [place] [address]CAMNKCRmz 73-02-0789HLBNCVZ Attestation signed by Doyle Betts MD at [...] the elevated troponin is a Type II LA secondary to anemia Plan: Please transfuse 2 [...] chest pain. She was transferred here from [place] for NSTEMI and new onset HFrEF. Vitals remarkable for BP 140/54, HR 73, on 6L oxygen. Labs notable for peak troponin 929. EKG showed NSR with non-specific ST changes. Echo on 08/18/2023 shows EF 55 to 60%, mild TR, mild mitral stenosis, mild MR, normal bioprosthetic aortic valve with no significant valvular or paravalvular regurgitation, mild MN. Cardiology was consulted for management of NSTEMI. Cardiology ROS: Negative except as mentioned. Past Medical History She has a past medical history of A-fib ([facility]/HCC), Abnormal ECG, Aortic valve stenosis, Arrhythmia, Coronary [...] one tablet twice daily. (more content not included)...NormalUnMemorial Health System Marietta Memorial HospitalFERRITINon 02-18-2025 FERRITIN (NG/ML) IN SER/PLAS18.0 ng/bQFrfekl04.0-307.0UnMemorial Health System [facility] Memorial HospitalComment on above:Performed By: #### [id number] #### [facility] [address] [place] [address]PBUFPTar 02-70-9022TRXJAF (NG/ML) IN SER/PLAS35.0 ng/mLNormal 6.6-1000UnMemorial Health System [facility] Memorial HospitalComment on above:Performed By: #### [id number] ####[facility])[address] [place] [address]EHKRVIN FUNCTION PANELon 63-90-7168Kuhfyna [Mass/Vol]3.7 g/dLNormal3.5-5.7UnMemorial Health System [facility] Memorial HospitalComment on above:Performed By: #### [id number] #### [facility] [address] [place], [place] [address]ALI [Catalytic activity/Vol]66 U/AHxrqup33-265XfopkkfcpzMemorial Health System Marietta Memorial HospitalComment on above:Performed By: #### [id number] #### [facility] [address] [place], [place] [address]DIZ [Catalytic activity/Vol]12 U/LNormal7-52UnMemorial Health System Mari[facility] Memorial HospitalComment on above:Performed By: #### [id number] #### [facility] [address] [place], [place] [address]VCM [Catalytic activity/Vol]21 U/OTrdqut76-29PcwwunxxfvMemorial Health System Marietta Memorial HospitalComment on above:Performed By: #### [id number] #### [facility] [address] [place], [place] [address]Gsqsvfyfp [Mass/Vol]0.4 mg/dLNormal0.3-1.0UnMemorial Health System [facility] Memorial HospitalComment on above:Performed By: #### [id number] #### [facility] [address] [place], [place] [address]Vmhqhezce [Mass/Vol]0.1 mg/dLNormal0-0.2UnMemorial Health System Mari[facility] Memorial HospitalComment on above:Performed By: #### [id number] #### [facility] [address] [facility] [place], [place] [address]Fbewwad [Mass/Vol]6.4 g/dLNormal6.0-8.3UnMemorial Health System Marietta Memorial HospitalComment on above:Performed By: #### [id number] #### [facility] [address] [place], [place] [address]LVNJ SENSITIVITY TROPONIN Ion 38-30-6000RF TROPONIN I (NG/L)929 ng/LCritically high<15UnMemorial Health System Marietta Memorial HospitalComment on above: Performed By: #### [id number] ####[facility] [place], [place] [address]CWaz 42-17-4428SJG&P reviewed. The patient was examined and there [...] benefits of the procedure including risk of LA, stroke and . She understands and agrees to proceed.NormalUnMemorial Health System Marietta Memorial HospitalIRON AND TIBCon 44-85-1229XPAN (UG/DL) IN SER/PLAS31 ug/fANmc00-145KtdsyqylflMemorial Health System Marietta Memorial HospitalComment on above:Performed By: #### [id number] ####[facility] [place], [place] [address]QOLW BINDING CAPACITY (UG/DL) IN SER/YLLN234 ug/uUWglazx471-331WrwgxviwdfMemorial Health System [facility] Hospital Comment on above:Performed By: #### [id number] ####[facility] [place] [address]XUUB BINDING CAPACITY.UNSATURATED (UG/DL) IN SER/TTIZ570.0 ug/lOVlkcfr587.0-355.0UnMemorial Health System [facility] Memorial HospitalComment on above:Performed By: #### [id number] ####[facility])[address] [place] [address]ZNQV SATURATION (%) IN SER/PLAS8 %Pjj98-17TmvkbpfxmxMemorial Health System Marietta Memorial HospitalComment on above:Performed By: #### [id number] ####[facility] [place] [address]PUODMCIOKgs 02-18-2025 Magnesium [Mass/Vol]2.7 mg/dLNormal1.9-2.7UnMemorial Health [facility] Comment on above:Performed By: #### [id number] ####[facility] [place], [place] [address]FIVG GLUCOSE METER UNSOLICITED RESULTSon 02-18-2025 Glucose [Mass/Vol]172 mg/uQZymf46-683LfsodakvjkMemorial Health System Marietta Memorial HospitalComment on above:Order Comment: Waived Testing in the ED is performed under the ED CLIA certificate #[id number].Result Comment: wyzvcqs71Qzvieqqwb By: #### [id number] ####[facility] [place], [place] [address]Yotxipb [Mass/Vol]210 mg/tXVrmc41-736DrnjonszurMemorial Health System Marietta Memorial HospitalComment on above:Order Comment: Waived Testing in the ED is performed under the ED CLIA certificate #[id number].Result Comment: ixscves2Jrehhduvz By: #### [id number] #### [facility] [address] [place], [place] [address]RETE AND SCREENon 88-01-4623UK SCREENNegativeNormalUniversity Dayton Children's HospitalComment on above:Performed By: #### [id number] ####[facility],ABO group Nom (Bld)ONormalUnMemorial Health System Marietta Memorial HospitalComment on above:Performed By: #### [id number] ####[facility],RH TYPE IN BLOODPositive NormalUnMemorial Health System Marietta Memorial HospitalComment on above:Performed By: #### [id number] ####[facility],VITAMIN B12on 73-86-9178Dmxrgblgr (Vitamin B12) [Mass/Vol]553 pg/dIXgwkqt125-285UxzawptzfyMemorial Health System Marietta Memorial HospitalComment on above:Result Comment: REFERENCE RANGES: 180-914 pg/mL Normal 145-179 pg/mL Indeterminate <145 pg/mL DeficientPerformed By: #### [id number] ####[facility] ([facility])[address] [place], [place] [address]U1X with Estimated Average Gluon 04-66-1622Zohhqpw [Mass/Vol]194 mg/dLNormalThe [facility] Physician GroupComment on above:Order Comment: pt is getting an ultrasoundResult Comment: PERFORMED BY: [facility] [address] [place] [address] PATHOLOGIST LOOM CHECKER SANKET KIRKPATRICK M.D.Performed By: #### BMP, CBC #### [facility] [address] [place] [address] LAUQeQ1j (Bld) [Mass fraction]8.4 %High4.3-5.6The [facility] Physician [facility] HospitalComment on above:Order Comment: pt is getting an ultrasoundResult Comment: Increased risk for diabetes: 5.7 - 6.4 diabetes: >6.4 glycemic control for adults with diabetes: <7.0Performed By: #### BMP, CBC #### [facility] [facility] [address] [place] [address] USAAlanine aminotransferase [Enzymatic activity/volume] in Serum or PlasmaOrdered By: Edvin Casper on 82-59-0128YLR [Catalytic activity/Vol]Alanine aminotransferase [Enzymatic activity/volume] in Serum or Plasma[address] [place], [place] [address]Albumin [Mass/volume] in Serum or Plasma by Bromocresol green (BCG) dye binding methoOrdered By: Edvin Casper on 91-32-9551Yuchwvp BCG dye [Mass/Vol]Albumin [Mass/volume] in Serum or Plasma by Bromocresol green (BCG) dye binding metho3.5-5.7FCincinnati Children's Hospital Medical CenterAlkaline phosphatase [Enzymatic activity/volume] in Serum or PlasmaOrdered By: Edvin Casper on 37-80-9178OKL [Catalytic activity/Vol] Alkaline phosphatase [Enzymatic activity/volume] in Serum or Wsnijn14-193 [facility] SouthAspartate aminotransferase [Enzymatic activity/volume] in Serum or PlasmaOrdered By: Edvin Casper on 02-16-2025 AST [Catalytic activity/Vol]Aspartate aminotransferase [Enzymatic activity/volume] in Serum or Vupddt71-26MglrobkbpSelect Medical Specialty Hospital [facility] South Basophils Auto (Bld) [#/Vol]Ordered By: Edvin Casper on 02-16-2025 Basophils (Bld) [#/Vol]Automated basophil count0.0-0.2FCincinnati Children's Hospital Medical CenterBasophils/100 WBC Auto (Bld)Ordered By: Edvin Casper on 02-16-2025 Basophils/100 WBC (Bld)Automated basophil %.[facility] Bilirubin.total [Mass/volume] in Serum or PlasmaOrdered By: Edvin Casper 66-08-1307Zhiefymiv [Mass/Vol]Bilirubin.total [Mass/volume] in Serum or Plasma0.3-1.0[facility] SouthBlood estimated average glucose determination by estimation from glycated hemoglobinOrdered By: Edvin Casper on 87-76-6108Gogcgvt glucose Estimated from glycated hemoglobin (Bld) [Mass/Vol]Glucose mean value [Mass/volume] in Blood Estimated from glycated hemoglobinSelect Medical Specialty Hospital - Columbus SouthCalcium [Mass/volume] in Serum or PlasmaOrdered By: Edvin Casper 05-37-1764Ibcydrw [Mass/Vol]Calcium [Mass/volume] in Serum or PlasmaLow8.6-10.3FCincinnati Children's Hospital Medical Center Carbon dioxide, total [Moles/volume] in Serum or PlasmaOrdered By: Edvin Casper 86-69-6874SL9 [Moles/Vol]Carbon dioxide, total [Moles/volume] in Serum or Olvcaf26.0-31.0[facility] SouthChloride [Moles/volume] in Serum or PlasmaOrdered By: Edvin Casper on 53-29-2083Xhzerjds [Moles/Vol]Chloride [Moles/volume] in Serum or Olstgs15-353MiukwphfiSelect Medical Specialty Hospital - Columbus SouthCholesterol [Mass/volume] in Serum or PlasmaOrdered By: Edvin Casper on 37-88-0625Pzoxfaisqwu [Mass/Vol]Cholesterol [Mass/volume] in Serum or DahktkWen456-120UqecatkjaSelect Medical Specialty Hospital - Columbus SouthComment on above:Chol less than 200 mg/dl low riskChol 201-239 mg/dl borderline riskChol 240 mg/dl and greater high riskCholesterol in HDL [Mass/volume] in Serum or PlasmaOrdered By: Edvin Casper on 64-38-6763Bxyzufegcbc in HDL [Mass/Vol]Serum or plasma high density lipoprotein (HDL) cholesterol -63OievjicijSelect Medical Specialty Hospital - Columbus SouthComment on above:HDL CHOL ATP-III CLASSIFICATION Cardiovascular RiskHDL > or equal to 60 mg/dL LOWHDL < 40 mg/dL HIGHCholesterol in LDL Calc [Mass/Vol]Ordered By: Edvin Casper on 34-36-8708Xbwonegnstk in LDL [Mass/Vol]Cholesterol in LDL [Mass/volume] in Serum or Plasma by calculation 0-100[facility] SouthComment on above:LDL ATP III CLASSIFICATIONLDL less than 100 mg/dL OptimalLDL 100-129 mg/dL Near or above ucoxmjyJTZ129-211 mg/dL Borderline highLDL 160-189 mg/dL HighLDL greater than 189 mg/dL Very highCholesterol in VLDL Calc [Mass/Vol]Ordered By: Edvin Casper on 55-40-0906Vjwtnaufxws in VLDL [Mass/Vol]Cholesterol in VLDL [Mass/volume] in Serum or Plasma by calculationSelect Medical Specialty Hospital - [facility] South Complete Blood Count Auto Diffon 58-76-1447Gxcvybdqi (Bld) [#/Vol]0.1 10*3/uL Normal0.0-0.2[facility] Physician GroupComment on above:Order Comment: pt is getting an ultrasoundResult Comment: PERFORMED BY: [place] [address] PATHOLOGIST LOOM CHECKER SANKET KIRKPATRICK M.D.Performed By: #### BMP, CBC #### [place] [address] USABasophils/100 WBC (Bld)1.3 %Normal.The [facility] Physician GroupComment on above:Order Comment: pt is getting an ultrasoundPerformed By: #### BMP, CBC #### [place] [address] USAEosinophils (Bld) [#/Vol]0.3 10*3/uLNormal0.0-0.45The [facility] Physician GroupComment on above:Order Comment: pt is getting an ultrasoundPerformed By: #### BMP, CBC #### [place] [address] USAEosinophils/100 WBC (Bld)3.3 %Normal.The [facility] Physician GroupComment on above:Order Comment: pt is getting an ultrasound Performed By: #### BMP, CBC #### [place] [address] USAErythrocyte distribution width (RBC) [Ratio]16.4 %High 11.9-15.3The [facility] Physician GroupComment on above:Order Comment: pt is getting an ultrasoundPerformed By: #### BMP, CBC #### [place] [address] USAHematocrit (Bld) [Volume fraction]24.7 %Low34.0-46.4The [facility] Physician GroupComment on above:Order Comment: pt is getting an ultrasoundPerformed By: #### BMP, CBC #### [place] [address] USAHemoglobin (Bld) [Mass/Vol]8.2 g/dLLow11.8-15.4The [facility] Physician GroupComment on above:Order Comment: pt is getting an ultrasoundPerformed By: #### BMP, CBC #### [place] [address] USALymphocytes (Bld) [#/Vol]2.3 10*3/uLNormal1.00-4.8The [facility] Physician GroupComment on above:Order Comment: pt is getting an ultrasoundPerformed By: #### BMP, CBC #### [place] [address] USALymphocytes/100 WBC (Bld)25.6 %Normal.The [facility] Physician GroupComment on above:Order Comment: pt is getting an ultrasound Performed By: #### BMP, CBC #### [address]H (RBC) [Entitic mass]28.4 gfQwnsxq80.7-34.3The [facility] Physician GroupComment on above:Order Comment: pt is getting an ultrasoundPerformed By: #### BMP, CBC #### [place] [address] USAV (RBC) [Entitic vol]85.9 iJXnmgit59-747Gcy [facility] Physician GroupComment on above:Order Comment: pt is getting an ultrasound Performed By: #### BMP, CBC #### [place] [address] USAMean Corpuscular HGB Conc33.0 g/hNPucjwt69.0-35.0The [facility] Physician GroupComment on above:Order Comment: pt is getting an ultrasoundPerformed By: #### BMP, CBC #### [place] [address] USAMonocytes (Bld) [#/Vol]1.1 10*3/uLHigh0.0-0.8The [facility] Physician GroupComment on above:Order Comment: pt is getting an ultrasound Performed By: #### BMP, CBC #### [place] [address] USAMonocytes/100 WBC (Bld)12.6 %Normal.The [facility] Physician GroupComment on above:Order Comment: pt is getting an ultrasound Performed By: #### BMP, CBC #### [facility] [address] [place] [address] USANeutrophils (Bld) [#/Vol]5.0 10*3/uLNormal1.8-7.7The [facility] Physician GroupComment on above:Order Comment: pt is getting an ultrasoundPerformed By: #### BMP, CBC #### [facility] [address] [place] [address] USANeutrophils/100 WBC (Bld)57.2 %Normal.The [facility] Physician GroupComment on above:Order Comment: pt is getting an ultrasound Performed By: #### BMP, CBC #### [facility] [address] [place] [address] USANRBC%0.0 /100{WBC}Normal0-0.5The [facility] Comment on above:Order Comment: pt is getting an ultrasoundPerformed By: #### BMP, CBC #### [facility] [address] [place] [address] USAPlatelet mean volume (Bld) [Entitic vol]8.9 fLNormal 6.3-10.7The [facility] Physician GroupComment on above:Order Comment: pt is getting an ultrasoundPerformed By: #### BMP, CBC #### [facility] [address] [place] [address] USAPlatelets (Bld) [#/Vol]166 10*3/pXFvejmq816-950Djy [facility] Physician GroupComment on above:Order Comment: pt is getting an ultrasoundPerformed By: #### BMP, CBC #### [facility] [address] [place] [address] USARBC (Bld) [#/Vol]2.87 10*6/uLLow3.60-5.00The [facility] Physician GroupComment on above:Order Comment: pt is getting an ultrasound Performed By: #### BMP, CBC #### [facility] [address] [place] [address] USAWBC (Bld) [#/Vol]8.8 10*3/uLNormal3.8-11.6The [facility] Physician GroupComment on above:Order Comment: pt is getting an ultrasound Performed By: #### BMP, CBC #### [facility] [address] [place] [address] USAComprehensive Metabolic Panelon 23-98-2775Kgjuffh [Mass/Vol]3.8 g/dLNormal3.5-5.7The [facility] Physician GroupComment on above: Order Comment: FASTING Y pt is getting an ultrasoundPerformed By: #### BMP, CBC #### [facility] [address] [place] [address] USAAlbumin/Globulin [Mass ratio]1.8 {ratio}NormalThe [facility] Physician GroupComment on above:Order Comment: FASTING Y pt is getting an ultrasoundPerformed By: #### BMP, CBC #### [place] [address] USAALP [Catalytic activity/Vol]64 U/KUutfgz39-790Nju [facility] Physician GroupComment on above:Order Comment: FASTING Y pt is getting an ultrasoundPerformed By: #### BMP, CBC #### [place] [address] USAALT [Catalytic activity/Vol]15 U/LNormal7-52The [facility] Physician GroupComment on above:Order Comment: FASTING Y pt is getting an ultrasoundPerformed By: #### BMP, CBC #### [place] [address] USAAnion gap [Moles/Vol]10.7 mmol/LNormal6.0-15.0The [facility] Physician GroupComment on above:Order Comment: FASTING Y pt is getting an ultrasoundPerformed By: #### BMP, CBC #### [place] [address] USAAST [Catalytic activity/Vol]17 U/MIawhav61-54Drq [facility] Physician GroupComment on above:Order Comment: FASTING Y pt is getting an ultrasoundPerformed By: #### BMP, CBC #### [place] [address] USABilirubin [Mass/Vol]0.3 mg/dLNormal0.3-1.0The [facility] Physician GroupComment on above:Order Comment: FASTING Y pt is getting an ultrasoundPerformed By: #### BMP, CBC #### [facility] [address] [place] [address] USACalcium [Mass/Vol]8.3 mg/dLLow8.6-10.3The [facility] Physician GroupComment on above:Order Comment: FASTING Y pt is getting an ultrasoundPerformed By: #### BMP, CBC #### [facility] [address] [place] [address] USAChloride [Moles/Vol]105 mmol/LQeywvk76-629Zyu [facility] Physician GroupComment on above:Order Comment: FASTING Y pt is getting an ultrasoundPerformed By: #### BMP, CBC #### [place] [address] USACO2 [Moles/Vol]26.2 mmol/OCfwufx12.0-31.0The [facility] Physician GroupComment on above:Order Comment: FASTING Y pt is getting an ultrasoundPerformed By: #### BMP, CBC #### [facility] [address] [place] [address] USACreatinine [Mass/Vol]1.44 mg/dLHigh0.60-1.20The [facility] Physician GroupComment on above:Order Comment: FASTING Y pt is getting an ultrasoundPerformed By: #### BMP, CBC #### [place] [address] USACreatinine Clr Calc Vdtrivru71.01NoCannon Memorial Hospital Physician GroupComment on above:Order Comment: FASTING Y pt is getting an ultrasoundPerformed By: #### BMP, CBC #### [facility] [address] [place] [address] USAEstimated GFR39.128 mL/MinNoCannon Memorial Hospital Physician GroupComment on above:Order Comment: FASTING Y pt is getting an ultrasound Performed By: #### BMP, CBC #### [facility] [address] [place] [address] USAGlobulin (S) [Mass/Vol]2.1 g/dLNoCannon Memorial Hospital Physician GroupComment on above:Order Comment: FASTING Y pt is getting an ultrasoundPerformed By: #### BMP, CBC #### [facility] [address] [place] [address] USAGlucose [Mass/Vol]142 mg/dLSignificant change qb41-547Llt [facility] Physician GroupComment on above:Order Comment: FASTING Y pt is getting an ultrasoundResult Comment: Random Glucose Reference Range is dependent on time and content of last meal. Glucose of more than 200 mg/dL in a nonstressed, ambulatory subject supports the diagnosis of Diabetes Mellitus. ADA recommended reference rangePerformed By: #### BMP, CBC #### [facility] [address] [place] [address] USAPotassium [Moles/Vol]4.9 mmol/LNormal3.5-5.1The [facility] Physician GroupComment on above:Order Comment: FASTING Y pt is getting an ultrasoundPerformed By: #### BMP, CBC #### [facility] [address] [place] [address] USAProtein [Mass/Vol]5.9 g/dLLow6.4-8.9The [facility] Physician GroupComment on above:Order Comment: FASTING Y pt is getting an ultrasoundPerformed By: #### BMP, CBC #### [facility] [address] [place] [address] USASodium [Moles/Vol]137 mmol/LHhxrzy865-338Vvu [facility] Physician GroupComment on above:Order Comment: FASTING Y pt is getting an ultrasoundPerformed By: #### BMP, CBC #### [facility] [address] [place] [id number] USAUrea nitrogen [Mass/Vol]48 mg/dLHigh7-25The [facility] Physician GroupComment on above:Order Comment: FASTING Y pt is getting an ultrasoundPerformed By: #### BMP, CBC #### [facility] [address] [place] [id number] USACreatinine [Mass/volume] in Serum or PlasmaOrdered By: Edvin Casper on 20-27-1111Xfmpafxabd [Mass/Vol]Creatinine [Mass/volume] in Serum or PlasmaHigh0.60-1.20[facility] SouthEosinophils Auto (Bld) [#/Vol]Ordered By: Edvin Casper on 63-42-9591Klqquqxauxu (Bld) [#/Vol]Automated eosinophil count0.0-0.45[facility] Eosinophils/100 WBC Auto (Bld)Ordered By: Edvintara Casper on 02-16-2025 Eosinophils/100 WBC (Bld)Automated eosinophil %.[facility] SouthErythrocyte distribution width Auto (RBC) [Ratio]Ordered By: Edvin Casper on 04-39-0063Arczmnckozl distribution width (RBC) [Ratio]Erythrocyte distribution width [Ratio] by Automated kefamIrcw97.9-15.3FCincinnati Children's Hospital Medical CenterFerritinon 82-40-6747Kvoszdcz [Mass/Vol]13.5 ng/wGWzzdcl86.0-306.8 The [facility] Physician GroupComment on above:Order Comment: FASTING Y pt is getting an ultrasoundPerformed By: #### BMP, CBC #### [facility] [address] [place] [address] USAFerritin [Mass/volume] in Serum or PlasmaOrdered By: Edvin tanikaaur[facility] on 13-01-2482Zqebhvff [Mass/Vol]Ferritin [Mass/volume] in Serum or Jjqfxk77.0-306.8[facility] SouthFolate [Mass/volume] in Serum or PlasmaOrdered By: Edvin [facility] on 10-83-0897Ilnnrg [Mass/Vol] Folate [Mass/volume] in Serum or Plasma>5.9[facility] Comment on above:Folate reference range: >5.9 ng/mlThe WHO technical consultation on folate and vitamin y87gnsqzaorunvl has determined that folate concentrations lessthan 4 ng/ml are considered deficient.Globulin Calc (S) [Mass/Vol]Ordered By: Edvin Mor[place]owa on 70-35-7442Mxhcwete (S) [Mass/Vol] Serum globulin measurement by calculation (mass/volume)[facility] SouthGlucose Glucometer (BldC) [Mass/Vol]Ordered By: Edvintara Morochowa on 95-26-1585Ghosrws [Mass/Vol]Capillary blood glucose measurement by glucometer (mass/volume)[facility] SouthComment on above:Random Glucose Reference Range is dependent on time and content of last meal. Glucose of more than 200 mg/dL in a nonstressed, ambulatory subject supports the diagnosis of Diabetes Mellitus.Glucose Poct Glucometerson 64-24-4773Dypvjig [Mass/Vol]254 mg/dLHCA Florida JFK Hospital Physician GroupComment on above:Result Comment: Random Glucose Reference Range is dependent on time and content of last meal. Glucose of more than 200 mg/dL in a nonstressed, ambulatory subject supports the diagnosis of Diabetes Mellitus. PERFORMED BY: [address] [place] [address] PATHOLOGIST LOOM CHECKER SANKET KIRKPATRICK M.D.Performed By: #### GLULS #### Point of Care testing ,Eedfddc6Bmo5: Cleaned MeterNoCannon Memorial Hospital Physician GroupComment on above: Result Comment: PERFORMED BY: [facility] [address] [facility] [place] [address] PATHOLOGIST LOOM CHECKER SANKET KIRKPATRICK M.D.Performed By: #### GLULS #### Point of Care testing ,Glucose [Mass/Vol]170 mg/dLHCA Florida JFK Hospital Physician GroupComment on above: Result Comment: Random Glucose Reference Range is dependent on time and content of last meal. Glucose of more than 200 mg/dL in a nonstressed, ambulatory subject supports the diagnosis of Diabetes Mellitus.Performed By: #### GLULS #### Point of Care testing ,Glucose [Mass/volume] in Serum or PlasmaOrdered By: Edvin Casper on 61-65-6273Xllsbtg [Mass/Vol]Glucose [Mass/volume] in Serum or PlasmaInvalid Interpretation Xbdh82-302QaqccigpgSelect Medical Specialty Hospital - Columbus SouthComment on above: Delta: 371 on 02/15/25-1430ADA recommended reference rangeRandom Glucose Reference Range is dependent on time and content of last meal. Glucose of more than 200 mg/dL in a nonstressed, ambulatory subject supports the diagnosis of Diabetes Mellitus.Hematocrit Auto (Bld) [Volume fraction]Ordered By: Edvin Casper on 17-88-6275Vbolllxqkk (Bld) [Volume fraction]Hematocrit [Volume Fraction] of Blood by Automated xkpitAqh59.0-46.4FCincinnati Children's Hospital Medical CenterHemoglobin A1c/Hemoglobin.total in BloodOrdered By: Edvin Casper on 49-57-4317RjI6k (Bld) [Mass fraction]Hemoglobin A1c percentageHigh4.3-5.6 [facility] SouthComment on above:Increased risk for diabetes: 5.7 - 6.4diabetes: >6.4glycemic control for adults with diabetes: <7.0 Hemoglobin [Mass/volume] in BloodOrdered By: Edvin Casper on 02-16-2025 Hemoglobin (Bld) [Mass/Vol]Hemoglobin [Mass/volume] in ElzfvIju35.8-15.4 [facility] SouthIron [Mass/volume] in Serum or PlasmaOrdered By: Edvin Casper on 90-85-8196Taax [Mass/Vol]Iron [Mass/volume] in Serum or OvffvxTvf65-521JnczmzbioSelect Medical Specialty Hospital - Columbus SouthIron and TIBC Profileon 02-16-2025% Iron Hfzcmvpspg13.4 %Ajt26-67Hsh [facility] Physician GroupComment on above:Order Comment: FASTING Y pt is getting an ultrasoundPerformed By: #### BMP, CBC #### [facility] [address] [place] [address] USAIron [Mass/Vol]45 ug/rGCgo59-609Fnv [facility] Physician GroupComment on above:Order Comment: FASTING Y pt is getting an ultrasound Performed By: #### BMP, CBC #### [facility] [address] [place] [address] USATotal Iron Binding Wolpvrwv430 ug/gVXsihkz290-875Ccv [facility] Physician GroupComment on above:Order Comment: FASTING Y pt is getting an ultrasoundPerformed By: #### BMP, CBC #### [facility] [address] [place] [address] USATransferrin [Mass/Vol]309 mg/ySSymcwu902-905Wec [facility] Physician GroupComment on above:Order Comment: FASTING Y pt is getting an ultrasoundPerformed By: #### BMP, CBC #### [facility] [address] [place] [address] USALeukocytes [#/volume] corrected for nucleated erythrocytes in Blood by Automated counOrdered By: Edvni Casper on 06-35-8210PWH corrected for nucl RBC Auto (Bld) [#/Vol]Leukocytes [#/volume] corrected for nucleated erythrocytes in Blood by Automated coun3.8-11.6FCincinnati Children's Hospital Medical CenterLipid Panelon 92-52-0159Rjtdvwqtuxb [Mass/Vol]119 mg/yGZmu419-762 The [facility] Physician GroupComment on above:Order Comment: FASTING Y pt is getting an ultrasoundResult Comment: Chol less than 200 mg/dl low risk Chol 201-239 mg/dl borderline risk Chol 240 mg/dl and greater high riskPerformed By: #### BMP, CBC #### [facility] [address] [place] [address] USACholesterol in HDL [Mass/Vol]28 mg/iARgxqio68-95Hjz [facility] Physician GroupComment on above:Order Comment: FASTING Y pt is getting an ultrasoundResult Comment: HDL CHOL ATP-III CLASSIFICATION Cardiovascular Risk HDL > or equal to 60 mg/dL LOW HDL < 40 mg/dL HIGHPerformed By: #### BMP, CBC #### [facility] [address] [place] [address] USACholesterol.total/Cholesterol in HDL [Mass ratio]4.3 {ratio}Normal<5.0The [facility] Physician GroupComment on above:Order Comment: FASTING Y pt is getting an ultrasoundPerformed By: #### BMP, CBC #### [facility] [address] [place] [address] USALDL Cholesterol,Xijmbdsfmf52 mg/dLNormal0-100The [facility] Physician GroupComment on above:Order Comment: FASTING Y pt is getting an ultrasoundResult Comment: LDL ATP III CLASSIFICATION LDL less than 100 mg/dL Optimal LDL 100-129 mg/dL Near or above optimal LDL 130-159 mg/dL Borderline high LDL 160-189 mg/dL High LDL greater than 189 mg/dL Very highPerformed By: #### BMP, CBC #### [facility] [address] [place] [address] USATriglyceride w/Bjetsf936 mg/dLHigh0-149The [facility] Physician GroupComment on above:Order Comment: FASTING Y pt is getting an ultrasoundResult Comment: TRIG ATP III CLASSIFICATION TRIG less than 150 mg/dL Normal TRIG 150-199 mg/dL Borderline high TRIG 200-500 mg/dL High TRIG greater than 500 mg/dL Very high Standard traceable to the Center for Disease Conrtrol and Prevention (CDC) test method.Performed By: #### BMP, CBC #### [facility] [address] [place] [address] USAVLDL YHGKQUKPJLX44 mg/dLNormalThCascade Medical Center Physician GroupComment on above:Order Comment: FASTING Y pt is getting an ultrasound Performed By: #### BMP, CBC #### [facility] [address] [place] [address] USALymphocytes Auto (Bld) [#/Vol]Ordered By: Edvin Casper on 33-02-8304Qbofrxrdqcs (Bld) [#/Vol]Lymphocytes [#/volume] in Blood by Automated count1.00-4.8[facility] SouthLymphocytes/100 WBC Auto (Bld)Ordered By: Edvin Casper on 32-75-2874Zlhcheutmly/100 WBC (Bld) Lymphocytes/100 leukocytes in Blood by Automated count.[facility] Auto (RBC) [Entitic mass]Ordered By: Edvin Casper on 15-20-5614BSF (RBC) [Entitic mass]MCH [Entitic mass] by Automated count24.7-34.3 [facility] Auto (RBC) [Mass/Vol]Ordered By: Edvin Casper on 83-36-2991VKNE (RBC) [Mass/Vol]MCHC [Mass/volume] by Automated count32.0-35.0[facility] CampusV Auto (RBC) [Entitic vol] Ordered By: Edvin Casper on 95-41-1751XMV (RBC) [Entitic vol]MCV [Entitic volume] by Automated bamwu76-698FpzewoivxSelect Medical Specialty Hospital - Columbus SouthMonocytes Auto (Bld) [#/Vol]Ordered By: Edvin Casper on 61-73-7420Zucuxpyvw (Bld) [#/Vol]Automated blood monocyte countHigh0.0-0.8[facility] SouthMonocytes/100 WBC Auto (Bld)Ordered By: Edvin Casper on 02-16-2025 Monocytes/100 WBC (Bld)Automated monocyte %.[facility] Neutrophils Auto (Bld) [#/Vol]Ordered By: Edvin Casper on 02-16-2025 Neutrophils (Bld) [#/Vol]Neutrophils [#/volume] in Blood by Automated count 1.8-7.7FCincinnati Children's Hospital Medical CenterNeutrophils/100 WBC Auto (Bld)Ordered By: Edvin Casper on 66-84-4574Abcxvjnxtgm/100 WBC (Bld)Automated neutrophil %.[facility] SouthNo Panel InformationOrdered By: Edvin Casper on 78-75-9224Xammnfg Glucose CommentGlu2: cleaned meter [facility] SouthEstimated GFR (CKD-EPI)39.128 mL/MinSelect Medical Specialty Hospital - Columbus SouthPharmacy Creatinine Clearance (Chem36.01[facility] SouthNucleated erythrocytes [Presence] in Blood by Automated countOrdered By: Edvin Casper on 31-66-6388Ncqcbogol RBC Auto Ql (Bld) Nucleated erythrocytes [Presence] in Blood by Automated count0-0.5FCincinnati Children's Hospital Medical CenterPlatelet mean volume Auto (Bld) [Entitic vol]Ordered By: Edvin Casper on 93-48-8705Qukrrtuz mean volume (Bld) [Entitic vol] Platelet mean volume [Entitic volume] in Blood by Automated count6.3-10.7 [facility] SouthPlatelets Auto (Bld) [#/Vol]Ordered By: Edvin Casper on 46-83-6800Czrnckcnp (Bld) [#/Vol]Platelets [#/volume] in Blood by Automated qsrey355-371LwvnewpxtSelect Medical Specialty Hospital - Columbus SouthPotassium [Moles/volume] in Serum or PlasmaOrdered By: Edvin Casper on 02-16-2025 Potassium [Moles/Vol]Potassium [Moles/volume] in Serum or Plasma3.5-5.1FCincinnati Children's Hospital Medical CenterProtein [Mass/volume] in Serum or PlasmaOrdered By: Edvin Casper on 98-55-4095Bgeqxrq [Mass/Vol]Protein [Mass/volume] in Serum or PlasmaLow6.4-8.9[facility] SouthRBC Auto (Bld) [#/Vol] Ordered By: Edvin Casper on 40-62-5439HKG (Bld) [#/Vol]Erythrocytes [#/volume] in Blood by Automated countLow3.60-5.00[facility] - Trumbullerum or plasma albumin/globulin mass ratioOrdered By: Edvin Casper on 23-48-4428Yjgmtwa/Globulin [Mass ratio]Serum or plasma albumin/globulin mass ratioSelect Medical Specialty Hospital - Trumbullerum or plasma anion gap determination Ordered By: Edvin Casper on 62-98-9757Uziix gap [Moles/Vol]Serum or plasma anion gap determination6.0-15.0[facility] Trumbullerum or plasma iron binding capacity measurement (mass/volume)Ordered By: Edvin Casper on 23-02-1835Gtnz binding capacity [Mass/Vol]Iron binding capacity [Mass/volume] in Serum or Ewaobl122-207FzeissmggSelect Medical Specialty Hospital - Trumbullerum or plasma iron saturation measurement (mass fraction)Ordered By: Edvin Casper on 10-60-6902Olrl saturation [Mass fraction]Iron saturation [Mass Fraction] in Serum or FtiymzJpt87-31UqrrghhtsSelect Medical Specialty Hospital - Trumbullerum or plasma total cholesterol/high density lipoprotein (HDL) cholesterol mass rat Ordered By: Edvin Casper on 42-96-9677Orkbdrgtpra.total/Cholesterol in HDL [Mass ratio]Serum or plasma total cholesterol/high density lipoprotein (HDL) cholesterol mass rat<5.0[facility] Trumbullodium [Moles/volume] in Serum or PlasmaOrdered By: Edvin Casper on 24-25-4475Dsvsne [Moles/Vol]Sodium [Moles/volume] in Serum or Fpwubv363-418LgfefsbgtSelect Medical Specialty Hospital - Columbus SouthThyroid Stim Hormone w/Rflxon 55-46-0200Zajpfgd Stim Hormone w/Rflx1.17 u[iU]/mLNormal0.45-5.33The [facility] Physician GroupComment on above: Order Comment: FASTING Y pt is getting an ultrasoundResult Comment: PERFORMED BY: [place] [address] PATHOLOGIST LOOM CHECKER SANKET KIRKPATRICK M.D.Performed By: #### BMP, CBC #### [facility] [address] [place] [address] USAThyrotropin [Units/volume] in Serum or PlasmaOrdered By: Edvin Casper on 09-36-4051MLZ QnThyrotropin [Units/volume] in Serum or Plasma0.45-5.33[facility] SouthTransferrin [Mass/volume] in Serum or PlasmaOrdered By: Edvin Casper on 29-70-0001Gmhnzkzvyco [Mass/Vol]Transferrin [Mass/volume] in Serum or Ihowft092-042KvixxuecfSelect Medical Specialty Hospital - Columbus SouthTriglyceride [Mass/volume] in Serum or PlasmaOrdered By: Edvin Casper on 55-06-0632Njpjwxbkpnkg [Mass/Vol]Triglyceride [Mass/volume] in Serum or PlasmaHigh0-149[facility] SouthComment on above:TRIG ATP III CLASSIFICATIONTRIG less than 150 mg/dL NormalTRIG 150-199 mg/dL Borderline highTRIG 200-500 mg/dL High TRIG greater than 500 mg/dL Very highStandard traceable to the Center for Disease Conrtrol and Prevention (CDC) test method.US aorta (aaa) screeningon 41-55-3128EX aorta (aaa) screening [facility] [address] [place] [address] [place], [place] [id number] Ultrasound Report Signed Patient: Diann Patel MR#: [id number] 525 : 1955 Acct:[id number] Age/Sex: 69 / F ADM Date: 02/15/25 Loc: Room: [address] [place] [address] Type: ADM INOo Attending Dr: Edvin Casper [...] Erwin Jr., D.O.02/16/2025 8:26 AM Dictation Location: [place] [address] Tech: Ana Maria Rileyer Transcribed By: JOSUE 02/16/25825 Dictated By: Julio Cesar Erwin Jr, DO 02/16/25824 Signed By: 02/16/25825[facility] Physician GroupUrea nitrogen [Mass/volume] in Serum or PlasmaOrdered By: Edvin Casper on 58-00-1195Kpnf nitrogen [Mass/Vol]Urea nitrogen [Mass/volume] in Serum or PlasmaMclean Hospital-[facility] SouthVit. B12/Folate Profileon 47-66-3005Lkfoejzku (Vitamin B12) [Mass/Vol]831 pg/vWEihmjp947-089Kod [facility] Physician GroupComment on above:Order Comment: FASTING Y pt is getting an ultrasoundPerformed By: #### BMP, CBC #### [facility] [address] [place] [id number] ODXYvemks77.0 ng/mLNormal>5.9The [facility] Comment on above:Order Comment: FASTING Y pt is getting an ultrasoundResult Comment: Folate reference range: >5.9 ng/ml The WHO technical consultation on folate and vitamin b12 deficiencies has determined that folate concentrations less than 4 ng/ml are considered deficient.Performed By: #### BMP, CBC #### [facility] [address] [place] [address] USAVitamin B12 ser/plasOrdered By: Edvin Casper on 03-68-8679Ceyranmxm (Vitamin B12) [Mass/Vol]Vitamin B12 ser/exys344-211Qroelhveq Regional Medical CenterWBC Auto (Bld) [#/Vol]Ordered By: Edvin Casper on 36-23-3652REI (Bld) [#/Vol]Leukocytes [#/volume] in Blood by Automated count 3.8-11.6FCincinnati Children's Hospital Medical CenterAlanine aminotransferase [Enzymatic activity/volume] in Serum or PlasmaOrdered By: Ross Martinez on 21-55-6127DDQ [Catalytic activity/Vol]Alanine aminotransferase [Enzymatic activity/volume] in Serum or Plasma7-52[facility] SouthAlbumin [Mass/volume] in Serum or Plasma by Bromocresol green (BCG) dye binding methoOrdered By: Ross Martinez on 06-69-8367Bdwqphz BCG dye [Mass/Vol]Albumin [Mass/volume] in Serum or Plasma by Bromocresol green (BCG) dye binding metho3.5-5.7FCincinnati Children's Hospital Medical CenterAlkaline phosphatase [Enzymatic activity/volume] in Serum or PlasmaOrdered By: Ross Martinez on 09-16-7326TET [Catalytic activity/Vol] Alkaline phosphatase [Enzymatic activity/volume] in Serum or Vsoulg27-579 [facility] SouthAppearance of UrineOrdered By: Ross Martinez on 44-33-9284Tbygljaavk (U)Urine appearanceCleGrand Lake Joint Township District Memorial HospitalAspartate aminotransferase [Enzymatic activity/volume] in Serum or Plasma Ordered By: Ross Martinez on 16-11-9221NDC [Catalytic activity/Vol]Aspartate aminotransferase [Enzymatic activity/volume] in Serum or Tpiapq44-88UatpvequjSelect Medical Specialty Hospital - Columbus SouthB-Type Natriuretic Peptideon 55-47-9983Dlfovtbyzra peptide B (Bld) [Mass/Vol]278.0 pg/mLHigh5-100The [facility] Comment on above:Result Comment: PERFORMED BY: [place] [address] PATHOLOGIST LOOM CHECKER SANKET KIRKPATRICK M.D.Performed By: #### BMP, CBC #### [facility] [address] [place] [address] USABasophils Auto (Bld) [#/Vol]Ordered By: Ross Martinez on 93-02-6007Jvmjadyyc (Bld) [#/Vol]Automated basophil count0.0-0.2FCincinnati Children's Hospital Medical CenterBasophils/100 WBC Auto (Bld)Ordered By: Ross Martinez on 73-34-3929Tllezoonu/100 WBC (Bld)Automated basophil %.[facility] SouthBilirubin Test strip Ql (U)Ordered By: Ross Martinez on 42-96-1429Fchzyerut Ql (U)Bilirubin.total [Presence] in Urine by Test strip NegativeSelect Medical Specialty Hospital - Columbus SouthBilirubin.total [Mass/volume] in Serum or PlasmaOrdered By: Ross Martinez on 12-42-7705Stehiowpf [Mass/Vol] Bilirubin.total [Mass/volume] in Serum or Plasma0.3-1.0[facility] SouthBioFire Not Detectedon 91-27-9161EbtIlvp Not DetectedNot detected NormalNot DetecteThe [facility] Physician GroupComment on above:Result Comment: This is a duplicate RP2.1 COVID (PCR) result to be used for statistical tracking purpose only. PERFORMED BY: [place] [address] PATHOLOGIST LOOM CHECKER SANKET KIRKPATRICK M.D.Performed By: #### BMP, CBC #### [place] [address] USACOVID Cepheid NegativeOrdered By: Ross Martinez on 95-17-1652CIWH-CoV-2 (COVID-19) Ab IA QlCOVID CepheidNegativeSelect Medical Specialty Hospital - Columbus SouthComment on above:This is a duplicate Cepheid Xpert Xpress CoV- 2/Flu/RSV Plus RNA by RT-PCR result to be used for statistical tracking purpose only.COVID-19 / Flu A/B / RSV PCRon 91-60-2839OEEH-CoV-2 (COVID-19) RNA KOLE+probe Ql (Unsp spec)COVID-19 Cepheid [...] or Cepheid Disclaimer revoked sooner. PERFORMED BY: [facility] [place] [address] PATHOLOGIST LOOM CHECKER SANKET KIRKPATRICK M.D.[facility] Physician GroupComment on above: Performed By: #### GLULS #### Point of Care testing ,COVID-19 Detected/Not DetectedOrdered By: Edvin Casper on 02-15-2025 SARS-CoV-2 (COVID-19) RNA KOLE+non-probe Ql (Nph)Not detectedNot Southview Medical CenterComment on above:This is a duplicate RP2.1 COVID (PCR) result to be used for statistical tracking purpose only.CT abdomen pelvis w con on 18-17-5010UG abdomen pelvis w [facility] [place] [address] [place] [address] Scan Report Signed Patient: Diann Patel MR#: [id number] 525 : 1955 Acct:[id number] Age/Sex: 69 / F ADM Date: 02/15/25 Loc: Room: [address] [place] [address] Type: ADM INOo Attending Dr: Edvin Casper [...] Manjula Flannery M.D.02/15/2025 4:03 PM Dictation Location: [place] [address] Transcribed By: JOSUE 02/15/25 1603 Dictated By: Manjula Flannery MD 02/15/25 1554 Signed By: 02/15/25 1603[facility] Physician GroupCalcium [Mass/volume] in Serum or PlasmaOrdered By: Ross Martinez on 10-16-3913Yvbfutb [Mass/Vol]Calcium [Mass/volume] in Serum or Plasma8.6-10.3FCincinnati Children's Hospital Medical CenterCarbon dioxide, total [Moles/volume] in Serum or PlasmaOrdered By: Ross Martinez on 41-95-1633VV9 [Moles/Vol]Carbon dioxide, total [Moles/volume] in Serum or Plasma 21.0-31.0[facility] SouthCepheid COVID PCR Negativeon 59-08-4855BLNW-CoV-2 (COVID-19) RNA KOLE+probe Ql (Unsp spec)NegativeNormal NegativeThe [facility] Physician GroupComment on above:Result Comment: This is a duplicate CepTora Trading Servicesid Xpert Xpress CoV-2/Flu/RSV Plus RNA by RT-PCR result to be used for statistical tracking purpose only. PERFORMED BY: [facility] [address] [place] [address] PATHOLOGIST LOOM CHECKER SANKET KIRKPATRICK M.D.Performed By: #### GLULS #### Point of Care testing ,Chloride [Moles/volume] in Serum or PlasmaOrdered By: Ross Martinez on 93-20-2584Ncdkulwe [Moles/Vol]Chloride [Moles/volume] in Serum or Lfkdfv73-426 [facility] SouthColor Auto (U)Ordered By: Ross Martinez on 74-01-3125Oidhy (U)Color of Urine by AutoYellowSelect Medical Specialty Hospital - Columbus South Complete Blood Count Auto Diffon 80-14-8624Uvucptqyj (Bld) [#/Vol]0.1 10*3/uL Normal0.0-0.2The [facility] Physician GroupComment on above:Result Comment: PERFORMED BY: [facility] [place] [address] PATHOLOGIST LOOM CHECKER SANKET KIRKPATRICK M.D.Performed By: #### GLULS #### Point of Care testing ,Basophils/100 WBC (Bld)1.0 %Normal.The [facility] Physician GroupComment on above:Performed By: #### GLULS #### Point of Care testing ,Eosinophils (Bld) [#/Vol]0.4 10*3/uLNormal0.0-0.45The [facility] Physician [facility] Comment on above:Performed By: #### GLULS #### Point of Care testing ,Eosinophils/100 WBC (Bld)3.4 %Normal.The [facility] Physician GroupComment on above:Performed By: #### GLULS #### Point of Care testing ,Erythrocyte distribution width (RBC) [Ratio]16.6 %High11.9-15.3The [facility] Physician GroupComment on above:Performed By: #### GLULS #### Point of Care testing ,Hematocrit (Bld) [Volume fraction]26.9 %Low34.0-46.4The [facility] Physician GroupComment on above:Performed By: #### GLULS #### Point of Care testing ,Hemoglobin (Bld) [Mass/Vol]8.8 g/dLLow11.8-15.4The [facility] Comment on above:Performed By: #### GLULS #### Point of Care testing ,Lymphocytes (Bld) [#/Vol]2.3 10*3/uLNormal1.00-4.8The [facility] Comment on above:Performed By: #### GLULS #### Point of Care testing ,Lymphocytes/100 WBC (Bld)21.3 %Normal.The [facility] Physician GroupComment on above:Performed By: #### GLULS #### Point of Care testing ,MCH (RBC) [Entitic mass]28.4 fbMezdqx44.7-34.3The [facility] Comment on above:Performed By: #### GLULS #### Point of Care testing ,MCV (RBC) [Entitic vol]86.5 rRMrqmks76-495Ncn [facility] Physician GroupComment on above:Performed By: #### GLULS #### Point of Care testing ,Mean Corpuscular HGB Conc32.8 g/dICpwhbj58.0-35.0The [facility] Comment on above:Performed By: #### GLULS #### Point of Care testing ,Monocytes (Bld) [#/Vol]1.0 10*3/uLHigh0.0-0.8The [facility] Comment on above:Performed By: #### GLULS #### Point of Care testing ,Monocytes/100 WBC (Bld)18.23 %Normal0.00-20.00The [facility] Comment on above:Performed By: #### GLULS #### Point of Care testing ,Monocytes/100 WBC (Bld)9.1 %Normal.The [facility] Physician GroupComment on above:Performed By: #### GLULS #### Point of Care testing ,Neutrophils (Bld) [#/Vol]6.9 10*3/uLNormal1.8-7.7The [facility] Comment on above:Performed By: #### GLULS #### Point of Care testing ,Neutrophils/100 WBC (Bld)65.2 %Normal.The [facility] Physician GroupComment on above:Performed By: #### GLULS #### Point of Care testing ,NRBC%0.0 /100{WBC}Normal0-0.5The [facility] Physician GroupComment on above: Performed By: #### GLULS #### Point of Care testing ,Platelet mean volume (Bld) [Entitic vol]9.2 fLNormal6.3-10.7The [facility] Physician GroupComment on above:Performed By: #### GLULS #### Point of Care testing ,Platelets (Bld) [#/Vol]184 10*3/uDYrehsn468-208Hns [facility] Comment on above:Performed By: #### GLULS #### Point of Care testing ,RBC (Bld) [#/Vol]3.11 10*6/uLLow3.60-5.00The [facility] Physician GroupComment on above:Performed By: #### GLULS #### Point of Care testing ,WBC (Bld) [#/Vol]10.6 10*3/uLNormal3.8-11.6The [facility] Physician GroupComment on above:Performed By: #### GLULS #### Point of Care testing ,Comprehensive Metabolic Panelon 32-61-6188Bcufcal [Mass/Vol]3.9 g/dLNormal 3.5-5.7The [facility] Physician GroupComment on above:Performed By: #### GLULS #### Point of Care testing ,Albumin/Globulin [Mass ratio]1.4 {ratio}NormalThe [facility] Comment on above:Performed By: #### GLULS #### Point of Care testing ,ALP [Catalytic activity/Vol]73 U/PAswdwy67-964Obh [facility] Comment on above:Performed By: #### GLULS #### Point of Care testing ,ALT [Catalytic activity/Vol]15 U/LNormal7-52The [facility] Comment on above:Performed By: #### GLULS #### Point of Care testing ,Anion gap [Moles/Vol]13.4 mmol/LNormal6.0-15.0The [facility] Comment on above:Performed By: #### GLULS #### Point of Care testing ,AST [Catalytic activity/Vol]17 U/LQqbanp87-57Zze [facility] Comment on above:Performed By: #### GLULS #### Point of Care testing ,Bilirubin [Mass/Vol]0.4 mg/dLNormal0.3-1.0The [facility] Physician GroupComment on above:Performed By: #### GLULS #### Point of Care testing ,Calcium [Mass/Vol]9.4 mg/dLNormal8.6-10.3The [facility] Physician GroupComment on above:Performed By: #### GLULS #### Point of Care testing ,Chloride [Moles/Vol]98 mmol/NCiepqw90-088Udi [facility] Physician GroupComment on above:Performed By: #### GLULS #### Point of Care testing ,CO2 [Moles/Vol]25.8 mmol/ISzdhdr52.0-31.0The [facility] Physician GroupComment on above:Performed By: #### GLULS #### Point of Care testing ,Creatinine [Mass/Vol]1.44 mg/dLHigh0.60-1.20The [facility] Comment on above:Performed By: #### GLULS #### Point of Care testing ,Creatinine Clr Calc Mjywrwsr42.12NoMercy Health Lorain Hospital GroupComment on above:Performed By: #### GLULS #### Point of Care testing ,Estimated GFR39.128 mL/MinNoPaulding County HospitalComment on above: Performed By: #### GLULS #### Point of Care testing ,Globulin (S) [Mass/Vol]2.7 g/dLRedwood LLCComment on above:Performed By: #### GLULS #### Point of Care testing ,Glucose [Mass/Vol]371 mg/mSQbtb90-816Xbt [facility] HospitalComment on above:Result Comment: Random Glucose Reference Range is dependent on time and content of last meal. Glucose of more than 200 mg/dL in a nonstressed, ambulatory subject supports the diagnosis of Diabetes Mellitus. ADA recommended reference rangePerformed By: #### GLULS #### Point of Care testing ,Potassium [Moles/Vol]5.2 mmol/LHigh3.5-5.1The [facility] HospitalComment on above:Performed By: #### GLULS #### Point of Care testing ,Protein [Mass/Vol]6.6 g/dLNormal6.4-8.9The [facility] HospitalComment on above:Performed By: #### GLULS #### Point of Care testing ,Sodium [Moles/Vol]132 mmol/FXdl088-377Xzf [facility] HospitalComment on above:Performed By: #### GLULS #### Point of Care testing ,Urea nitrogen [Mass/Vol]42 mg/dLHigh7-25The [facility] Physician GroupComment on above:Performed By: #### GLULS #### Point of Care testing ,Creatine Kinaseon 61-87-2158BJ [Catalytic activity/Vol]61 U/RBvrizq75-606Nwd Oss HealthComment on above:Performed By: #### BMP, CBC #### [facility] [address] [place] [address] USACreatine kinase [Enzymatic activity/volume] in Serum or PlasmaOrdered By: Ross Martinez on 80-48-4262FI [Catalytic activity/Vol] Creatine kinase [Enzymatic activity/volume] in Serum or Sokprz12-001CvkjyrbzpSelect Medical Specialty Hospital - Columbus SouthCreatinine [Mass/volume] in Serum or PlasmaOrdered By: Ross Martinez on 53-13-6685Wqlyceqtff [Mass/Vol]Creatinine [Mass/volume] in Serum or PlasmaHigh0.60-1.20[facility] SouthECG 12 lead ECGon 79-93-6486UQM 12 lead ECGDAYTON CHILDR[facility] [address] [place] [address] [place] [address] Electrocardiograph Report Signed Patient: Diann Patel MR#: [id number] 525 : 1955 Acct:[id number] Age/Sex: 69 / F ADM Date: 02/15/25 Loc: Room: [address] [place] [address] Type: DIS INOo Attending Dr: Edvin Casper [...] ECGs available Confirmed by EDUARDO DEAN DO ([id number]) on 02/17/2025 6:39:30 AM Referred By: Electronically Signed By: EDUARDO DEAN DO Transcribed By: MUS Signed By Eduardo Dean DO 02/17 0639[facility] Physician GroupEosinophils Auto (Bld) [#/Vol]Ordered By: Ross Martinez on 66-93-1497Bfbmujutalg (Bld) [#/Vol]Automated eosinophil count0.0-0.45[facility] SouthEosinophils/100 WBC Auto (Bld) Ordered By: Ross Martinez on 87-74-2856Qaipwcekjnr/100 WBC (Bld)Automated eosinophil %.[facility] SouthErythrocyte distribution width Auto (RBC) [Ratio]Ordered By: Ross Martinez on 37-85-9041Lahidhekppm distribution width (RBC) [Ratio]Erythrocyte distribution width [Ratio] by Automated fakakGycj05.9-15.3FCincinnati Children's Hospital Medical CenterGlobulin Calc (S) [Mass/Vol]Ordered By: Ross Martinez on 26-98-0569Fmeavlla (S) [Mass/Vol]Serum globulin measurement by calculation (mass/volume)[facility] SouthGlucose Poct Glucometerson 36-20-5849Owvqzje3Shv8: Cleaned MeterNoCannon Memorial Hospital Physician GroupComment on above:Result Comment: PERFORMED BY: [place] [id number] PATHOLOGIST LOOM CHECKER SANKET KIRKPATRICK M.D.Performed By: #### BMP, CBC #### [facility] [address] [place] [address] USAGlucose [Mass/Vol]377 mg/dLHCA Florida JFK Hospital Physician GroupComment on above:Result Comment: Random Glucose Reference Range is dependent on time and content of last meal. Glucose of more than 200 mg/dL in a nonstressed, ambulatory subject supports the diagnosis of Diabetes Mellitus.Performed By: #### BMP, CBC #### [facility] [address] [place] [address], [place] [address] USAGlucose [Mass/volume] in Serum or PlasmaOrdered By: Ross Martinez on 89-51-7421Lnrrifx [Mass/Vol]Glucose [Mass/volume] in Serum or YybochOedy20-998OusanvvwzSelect Medical Specialty Hospital - Columbus SouthComment on above:ADA recommended reference rangeRandom Glucose Reference Range is dependent on time and content of last meal. Glucose of more than 200 mg/dL in a nonstressed, ambulatory subject supports the diagnosisof Diabetes Mellitus.Glucose [Mass/volume] in Urine by Test stripOrdered By: Ross Martinez on 02-15-2025 Glucose Test strip (U) [Mass/Vol]Glucose [Mass/volume] in Urine by Test strip HighNormalSelect Medical Specialty Hospital - Columbus SouthHematocrit Auto (Bld) [Volume fraction]Ordered By: Ross Martinez on 55-75-3428Sejjkdxzvl (Bld) [Volume fraction]Hematocrit [Volume Fraction] of Blood by Automated unsrpZyl82.0-46.4 [facility] SouthHemoglobin Test strip Ql (U)Ordered By: Ross Martinez on 42-96-2643Kcdjmoqdgz Ql (U)Hemoglobin [Presence] in Urine by Test stripNegMiami Valley HospitalHemoglobin [Mass/volume] in Blood Ordered By: Ross Martinez 28-51-6843Jxrzsfkniq (Bld) [Mass/Vol]Hemoglobin [Mass/volume] in HlqvsYqy03.8-15.4FCincinnati Children's Hospital Medical CenterKetones Test strip Ql (U)Ordered By: Ross Martinez on 15-70-0345Nwbejzy Ql (U)Ketones [Presence] in Urine by Test stripNegMiami Valley Hospital Leukocyte esterase [Presence] in Urine by Test stripOrdered By: Ross Martinez on 18-11-5865Pnsocspct esterase Test strip Ql (U)Leukocyte esterase [Presence] in Urine by Test stripCherrington HospitalLeukocytes [#/volume] corrected for nucleated erythrocytes in Blood by Automated coun Ordered By: Ross Martinez on 04-05-3166TTL corrected for nucl RBC Auto (Bld) [#/Vol]Leukocytes [#/volume] corrected for nucleated erythrocytes in Blood by Automated coun3.8-11.6FCincinnati Children's Hospital Medical CenterLipaseon 76-42-0818Mxkhwh [Catalytic activity/Vol]41.0 U/WFxoicv37.0-82.0The [facility] Comment on above:Result Comment: PERFORMED BY: [facility] [place] [address] PATHOLOGIST LOOM CHECKER SANKET KIRKPATRICK M.D.Performed By: #### GLULS #### Point of Care testing ,Lipase [Enzymatic activity/volume] in Serum or PlasmaOrdered By: Ross Martinez on 49-28-1515Tfqtuv [Catalytic activity/Vol]Lipase [Enzymatic activity/volume] in Serum or Nmxcfa18.0-82.0[facility] SouthLymphocytes Auto (Bld) [#/Vol]Ordered By: Ross Martinez on 12-75-6658Wzbhimvpqrr (Bld) [#/Vol] Lymphocytes [#/volume] in Blood by Automated count1.00-4.8[facility] SouthLymphocytes/100 WBC Auto (Bld)Ordered By: Ross Martinez on 71-25-8066Ijbsabdycyb/100 WBC (Bld)Lymphocytes/100 leukocytes in Blood by Automated count.[facility] SouthMCH Auto (RBC) [Entitic mass] Ordered By: Ross Martinez on 09-45-3830WMZ (RBC) [Entitic mass]MCH [Entitic mass] by Automated count24.7-34.3FCincinnati Children's Hospital Medical CenterMCHC Auto (RBC) [Mass/Vol]Ordered By: Ross Martinez on 17-84-8680LSXD (RBC) [Mass/Vol] MCHC [Mass/volume] by Automated count32.0-35.0[facility] MCV Auto (RBC) [Entitic vol]Ordered By: Ross Martinez on 82-09-9093QTS (RBC) [Entitic vol]MCV [Entitic volume] by Automated fuvuz47-124VmsprrjmwSelect Medical Specialty Hospital - [facility] SouthMonocyte distribution width [Entitic volume] in Blood by Automated Ordered By: Ross Martinez on 27-58-7480Iklhxeum distribution width Auto (Bld) [Entitic vol]Monocyte distribution width [Entitic volume] in Blood by Automated 0.00-20.00[facility] SouthMonocytes Auto (Bld) [#/Vol]Ordered By: Ross Martinez on 34-91-9731Ehjzowbwi (Bld) [#/Vol]Automated blood monocyte countHigh0.0-0.8[facility] SouthMonocytes/100 WBC Auto (Bld) Ordered By: Ross Martinez on 17-66-1723Jcfehyctp/100 WBC (Bld)Automated monocyte %.[facility] SouthNatriuretic peptide B [Mass/Vol] Ordered By: Ross Martinez on 50-50-1060Juzvlhfncsa peptide B (Bld) [Mass/Vol] BNP ser/plasHigh5-100[facility] SouthNeutrophils Auto (Bld) [#/Vol]Ordered By: Ross Martinez on 23-20-6515Gjojgehvotx (Bld) [#/Vol] Neutrophils [#/volume] in Blood by Automated count1.8-7.7FCincinnati Children's Hospital Medical CenterNeutrophils/100 WBC Auto (Bld)Ordered By: Ross Martinez on 11-10-5872Gztlxsncjpo/100 WBC (Bld)Automated neutrophil %.[facility] SouthNitrite Test strip Ql (U)Ordered By: Ross Martinez on 02-15-2025 Nitrite Ql (U)Nitrite [Presence] in Urine by Test stripNegativeSelect Medical Specialty Hospital - [facility] SouthNo Panel InformationOrdered By: Ross Martinez on 89-24-9911Oscfxlyzu GFR (CKD-EPI)39.128 mL/MinSelect [facility]acy Creatinine Clearance (Chem36.12[facility] Nucleated erythrocytes [Presence] in Blood by Automated countOrdered By: Ross Martinez on 11-36-3330Gqxsjpbht RBC Auto Ql (Bld)Nucleated erythrocytes [Presence] in Blood by Automated count0-0.5FCincinnati Children's Hospital Medical Center Ophthalmic OCT panelon 57-58-5647LKYJSac-[facility] Eye Images reviewed and comparison made to baseline, Images reviewed. To assess optic nerve function and for use in future follow-up. Reliability: poor. Left Eye Images reviewed and comparison made to baseline, Images reviewed. To assess optic nerve function and for use in future follow-up. Reliability: good and adequate. Notes Good nerve fiber layer (NFL) thickness both eyes (OU). Stable.[facility] HealthcareRadiology Study observation (narrative)[facility] HealthcareOptical coherence tomography study reporton 19-61-3777OUEPFormerly [facility] Radiology Study observation (narrative)[facility] HealthcarePlatelet mean volume Auto (Bld) [Entitic vol]Ordered By: Ross Martinez on 11-68-8477Sftjvumv mean volume (Bld) [Entitic vol]Platelet mean volume [Entitic volume] in Blood by Automated count6.3-10.7FCincinnati Children's Hospital Medical CenterPlatelets Auto (Bld) [#/Vol] Ordered By: Ross Martinez on 43-62-1270Pdhssxbsr (Bld) [#/Vol]Platelets [#/volume] in Blood by Automated itjgb514-460MqeukqeltSelect Medical Specialty [facility] Potassium [Moles/volume] in Serum or PlasmaOrdered By: Ross Martinez on 55-93-7050Sdjhrxdkr [Moles/Vol]Potassium [Moles/volume] in Serum or PlasmaHigh 3.5-5.1FCincinnati Children's Hospital Medical CenterProtein Test strip (U) [Mass/Vol]Ordered By: Ross Martinez on 60-46-5183Tkdxsao (U) [Mass/Vol]Protein [Mass/volume] in Urine by Test stripNegativeSelect Medical Specialty Hospital - [facility] SouthProtein [Mass/volume] in Serum or PlasmaOrdered By: Ross Martinez on 52-72-4957Modethh [Mass/Vol]Protein [Mass/volume] in Serum or Plasma6.4-8.9[facility] SouthRBC Auto (Bld) [#/Vol]Ordered By: Ross Martinez on 10-64-7097CYP (Bld) [#/Vol]Erythrocytes [#/volume] in Blood by Automated countLow3.60-5.00 [facility] SouthRespiratory (Upper) Panel, PCRon 02-15-2025 Respiratory (Upper) Panel, [...] Influenza A H3 Blank Space PERFORMED BY: [place] [address] PATHOLOGIST LOOM CHECKER SANKET KIRKPATRICK M.D.[facility] Physician GroupComment on above: Performed By: #### BMP, CBC #### [address]Respiratory pathogens DNA and RNA panel - Nasopharynx by KOLE with non-probe detectionOrdered By: Edvin Casper on 02-15-2025 Respiratory pathogens DNA and RNA panel KOLE+non-probe (Nph)Respiratory pathogens DNA and RNA panel - Nasopharynx by KOLE with non-probe detectionSelect Medical Specialty Hospital - [facility] SouthRespiratory specimen influenza A virus, influenza B virus, respiratory syncytical virOrdered By: Ross Martinez on 02-15-2025 SARS-CoV-2 (COVID-19) RNA KOLE+probe Ql (Unsp spec)Respiratory specimen influenza A virus, influenza B virus, respiratory syncytical virSelect Medical Specialty Hospital - Trumbullerum or plasma albumin/globulin mass ratioOrdered By: Ross Martinez on 01-54-5617Mwlvaxx/Globulin [Mass ratio]Serum or plasma albumin/globulin mass ratioSelect Medical Specialty Hospital - Trumbullerum or plasma anion gap determinationOrdered By: Ross Martinez on 28-31-5467Jtpyy gap [Moles/Vol]Serum or plasma anion gap determination6.0-15.0[facility] - Trumbullodium [Moles/volume] in Serum or PlasmaOrdered By: Ross Martinez on 73-14-4449Hzevid [Moles/Vol]Sodium [Moles/volume] in Serum or PlasmaLow 136-145[facility] Trumbullpecific gravity Test strip (U) [Rel density]Ordered By: Ross Martinez on 83-17-8072Wlopnhag gravity (U) [Rel density]Specific gravity of Urine by Test stripHigh1.001-1.030[facility] SouthTroponin I High Sensitivityon 89-32-3946Owvtbhiy I High Smmtecibwca15Yqubtc1-93Pkp [facility] Physician GroupComment on above:Result Comment: The Troponin units of report have been changed to meet the Chest Pain Accreditation requirement, element EC5.M1l2. Troponin units are changed from pg/ml to ng/L. Also, the decimal is removed and results are in whole numbers. PERFORMED BY: [place] [address] PATHOLOGIST LOOM CHECKER SANKET KIRKPATRICK M.D.Performed By: #### BMP, CBC #### [place] [address] USATroponin I.cardiac [Mass/volume] in Serum or Plasma by Detection limit <= 0.01 ng/Ordered By: Ross Martinez on 32-19-1285Zjinhgtm I.cardiac DL <= 0.01 ng/mL [Mass/Vol]Troponin I.cardiac [Mass/volume] in Serum or Plasma by Detection limit <= 0.01 ng/0-15[facility] Comment on above:The Troponin units of report have been changed to meet the Chest Pain Accreditation requirement, element EC5.M1l2. Troponin units are changed from pg/ml to ng/L. Also, the decimal is removed and results are in whole numbers.Urea nitrogen [Mass/volume] in Serum or PlasmaOrdered By: Ross Martinez on 28-23-9242Kgmg nitrogen [Mass/Vol]Urea nitrogen [Mass/volume] in Serum or PlasmaGreenbrier Valley Medical Center7-25[facility] SouthUrinalysison 02-15-2025 Appearance (U)ClearNormalClearHca Florida Suwannee Emergency Physician GroupComment on above: Order Comment: Name Collection Type:: Clean-Voided MidstreamPerformed By: #### GLULS #### Point of Care testing ,Bilirubin,UrineNegativeNormalNegativeHca Florida Su[facility] Emergency Physician GroupComment on above:Order Comment: Name Collection Type:: Clean-Voided MidstreamPerformed By: #### GLULS #### Point of Care testing ,Color (U)YellowNormalYellowHca Florida Suwannee Emergency Physician GroupComment on above:Order Comment: Name Collection Type:: Clean-Voided MidstreamPerformed By: #### GLULS #### Point of Care testing ,Glucose Ql (U)150 mg/dLAcuteCare Health System Physician GroupComment on above: Order Comment: Name Collection Type:: Clean-Voided MidstreamPerformed By: #### GLULS #### Point of Care testing ,Ketones Ql (U)NegativeNormalNegativeHca Florida [facility] Emergency Physician GroupComment on above:Order Comment: Name Collection Type:: Clean-Voided MidstreamPerformed By: #### GLULS #### Point of Care testing ,Leukocyte esterase Test strip Ql (U)NegativeNormalNegHCA Florida St. [facility] Physician GroupComment on above:Order Comment: Name Collection Type:: Clean- Voided MidstreamPerformed By: #### GLULS #### Point of Care testing ,Nitrite,UrineNegativeNormalNegativeHca [facility] Emergency Physician GroupComment on above:Order Comment: Name Collection Type:: Clean-Voided MidstreamPerformed By: #### GLULS #### Point of Care testing ,Occult Blood,UrineNegativeNormalNegativeHca Florida [facility] Emergency Physician GroupComment on above:Order Comment: Name Collection Type:: Clean-Voided MidstreamResult Comment: PERFORMED BY: [facility] [place] [address] PATHOLOGIST LOOM CHECKER SANKET KIRKPATRICK M.D.Performed By: #### GLULS #### Point of Care testing ,pH (U)5.0 [pH]Normal5.0-9.0The [facility] Physician GroupComment on above:Order Comment: Name Collection Type:: Clean-Voided MidstreamPerformed By: #### GLULS #### Point of Care testing ,Protein,UrineNegativeNormalNegativeThe [facility] Physician GroupComment on above:Order Comment: Name Collection Type:: Clean-Voided MidstreamPerformed By: #### GLULS #### Point of Care testing ,Specificy [place],Urine1.972Knrk1.001-1.030The [facility] Physician GroupComment on above:Order Comment: Name Collection Type:: Clean-Voided MidstreamPerformed By: #### GLULS #### Point of Care testing ,Urobilinogen,UrineNormalNormalNormalThe [facility] Physician GroupComment on above:Order Comment: Name Collection Type:: Clean-Voided MidstreamPerformed By: #### GLULS #### Point of Care testing ,Urobilinogen Test strip (U) [Mass/Vol]Ordered By: Ross Martinez on 02-15-2025 Urobilinogen (U) [Mass/Vol]Urobilinogen [Mass/volume] in Urine by Test strip [facility] MiamisburgWBC Auto (Bld) [#/Vol]Ordered By: Ross Martinez on 91-39-2458MUV (Bld) [#/Vol]Leukocytes [#/volume] in Blood by Automated count3.8-11.6FCincinnati Children's Hospital Medical CenterX-ray reportOrdered By: Julio Cesar Erwin on 25-59-0563Nyrle [facility] [place] [address] XRay Report Signed Patient: Diann Patel MR#: [id number] : 1955 Acct:[id number] Age/Sex: 69 / F ADM Date: 5 Loc: ER Room: Type: [facility] ER Attending Dr: Copies to: Ross [...] Jr, DO 02/15/251537 Signed By: 02/15/25 153 [facility] SouthXR chest 2V*on 77-69-2218RJ chest 2V*[facility] [address] XRay Report Signed Patient: Diann Patel MR#: [id number] : 1955 Acct:[id number] Age/Sex: 69 / F ADM Date: 02/15/25 Loc: ER Room: Type: [facility] ER Attending Dr: Copies to: Ross [...] Erwin Jr, DO 02/15/251537 Signed By: 02/15/[address] [place] [address] Physician [facility] HospitalpH Test strip (U)Ordered By: Ross Martinez on 96-52-1627wV (U)pH of Urine by Test strip5.0-9.0[facility] SouthHbA1c (Bld) [Mass fraction]on 74-98-9394Kxjcpyzifrjjph and review of laboratory resultsAbnormalSt. Louis VA Medical Center HealthcareLaboratory - Hematology and Cell countson 50-20-0580AsZ4r (Bld) [Mass fraction]9.1 %[facility] HealthcareOffice Visiton 02-35-6232Suefgf-up [id number] Diann Patel 1955 F Date Provider Department Center 12/20/2024 VALENTE BALTAZAR CARD [facility] Family History Problem Relation Age of Onset Diabetes Mother Cancer Mother Heart disease Father Alcohol abuse Brother Diabetes Brother Family Status - Relation Status Age at Mother Father Brother Level of Service:[address] [place] OFFICE/OUTPATIENT ESTABLISHED MOD MDM [facility] DaytonALL LIPID PROFILE (FASTING)on 52-96-9843FPJV HDL RATIO3.6NOSC HealthcareComment on above:3.3 - 4.4 LOW RISK 4.4 - 7.1 AVERAGE RISK 7.1 - 11.0 MODERATE RISK >11.0 HIGH RISK Cholesterol [Mass/Vol]160 mg/dLNINF - 200 mg/dLNOSC HealthcareCholesterol in HDL [Mass/Vol]44 mg/dL40 - 60 mg/dLNOSC HealthcareComment on above:> or =60 mg/dl - LOW CARDIOVASCULAR RISK <40 mg/dl - HIGH CARDIOVASCULAR RISK Magnesium [Mass/Vol]59 mg/dLNOSC HealthcareComment on above:<100 mg/dl OPTIMAL 100-129 mg/dl NEAR OR ABOVE OPTIMAL 130-159 mg/dl BORDERLINE HIGH 160-189 mg/dl HIGH >190 mg/dl VERY HIGH Magnesium [Mass/Vol]57.4 mg/dLNOSC HealthcareTriglyceride [Mass/Vol]287 mg/dL HighNINF - 150 mg/dLNOSC HealthcareCCF CMP (CMP) (FOR REMOTE [facility] USE)on 01-16-7206Vpqrteg [Mass/Vol]3.5 g/dL3.4 - 5.0 g/dLNOSC HealthcareALBUMIN GLOBULIN RATIO1.1NOMS HealthcareALP [Catalytic activity/Vol]84 U/L46 - 116 U/L [facility] HealthcareALT [Catalytic activity/Vol]22 U/L14 - 59 U/LNOMS [...] 2NOMS HealthcareGlobulin (S) [Mass/Vol]3.3 g/dLNOMS HealthcareGlucose [Mass/Vol]174 mg/zITplf59 - 106 mg/dLNOMS HealthcarePotassium [Moles/Vol]5 mmol/L3.5 - 5.1 mmol/LNOMS HealthcareProtein [Mass/Vol]6.8 g/dL6.4 - 8.2 g/dLNOMS HealthcareSodium [Moles/Vol]142 mmol/L136 - 145 mmol/LNOMS HealthcareTBH EGFR-NON AF PZGLKJUG63Rla>=60 mL/min/1.73m 2NOMS HealthcareUrea nitrogen [Mass/Vol]19 mg/dLHigh7.0 - 18.0 mg/dLNOSC HealthcareUrea nitrogen/Creatinine [Mass ratio]17 mg/mgNOSac-Osage HospitalNo Panel Informationon 55-85-1571Pnfikwdlowtmqx and review of laboratory resultsAbTrinity Health Oakland Hospital CLINISYNCSalem Memorial District HospitalLaboratory - Hematology and Cell countson 09-22-2024 HbA1c (Bld) [Mass fraction]9.5 %[facility] HospitalNo Panel Informationon 09-22-2024 Interpretation and review of laboratory resultsAbnoPrisma Health Patewood Hospital HealthcareOffice Visiton 63-44-5074Iqlvyp-up [id number] Diann Patel 1955 F Date Provider Department Center 08/18/2024 Nayeli-CARMELLA ALLEN [facility] Family History Problem Relation Age of Onset Diabetes Mother Cancer Mother Heart disease Father Alcohol abuse Brother Diabetes Brother Family Status - Relation Status Age at Mother Father Brother Level of Service:18695 [place] OFFICE/OUTPATIENT ESTABLISHED MOD MDM 30 MIN Reason for Visit and Comments: Coronary Artery Disease [187] Atrial Fibrillation [80] Valve Disorder [3372] Peripheral Vascular Disease [458]NormalSelect Medical [facility] US ANKLE BRACHIAL INDEX (BRIDGER) WITHOUT EXERCISEon 29-15-0950VSML US ANKLE BRACHIAL INDEX (BRIDGER) WITHOUT EXERCISEJudith Ville [address] and Vascular Lab Report [facility] US ANKLE BRACHIAL INDEX (BRIDGER) WITHOUT EXERCISE Patient Name: DIANN AMANDA Reading Physician: [id number] Nury Blackwell MD, RPVI Study Date: 07/20/2024 Ordering Physician: [id number] SOSA MRN/PID: [id number] Technologist: Chanda Martinez T Technologist 2: Date of /Age: 8 1955 / 69 years Gender: F Admission Status: Outpatient Location Performed: [facility] Diagnosis/ICD: Peripheral vascular disease, unspecified-I73.9 CPT Codes: 00780 Peripheral artery BRIDGER Only CONCLUSIONS: Right Lower [...] Left Brachial Pressure 175 mmHg 184 mmHg [id number] Nury Blackwell MD, RPVI Final [facility] FoundationUS Eye+Orbit - bilateralon 32-09-3497Vrfkjrcgg: Cataract both eyes (OU) Testing Indication: Performed for preop measurements in the determination of an intraocular lens (IOL) for both eyes (OU) Test Reliability: Good quality both eyes (OU) Interpretation: Good measurements for intraocular lens (IOL) calculation purposes. Calculation made for both eyes (OU).[facility] Radiology Study observation (narrative)[facility] HospitalACT Coag (Bld)on 91-98-9442Qmccghpibbajnc and review of laboratory resultsAbWilson Street HospitalInterpretation and review of laboratory resultsAbWilson Street HospitalInterpretation and review of laboratory resultsAbKettering Health MiamisburgInterpretation and review of laboratory resultsAbParkview HealthInterpretation and review of laboratory results [facility] ACTIVATED CLOTTING TIME LOWon 79-81-6904SNW Coag (Bld)282 [facility] on above:Target ACT range will vary based on the patient population, clinical status, and surgical intervention occurring. ACT Coag (Bld)234 [facility] on above:Target ACT range will vary based on the patient population, clinical status, and surgical intervention occurring. ACT Coag (Bld)271 [facility] on above:Target ACT range will vary based on the patient population, clinical status, and surgical intervention occurring. ACT Coag (Bld)316 [facility] on above:Target ACT range will vary based on the patient population, clinical status, and surgical intervention occurring. ACT Coag (Bld)334 [facility] HospitalComment on above:Target ACT range will vary based on the patient population, clinical status, and surgical intervention occurring. Activated clotting timeon 68-83-9965UTC Coag (Bld)282 [address]Comment on above:Result Comment: Target ACT range will vary based on the patient population, clinical status, and surgical intervention occurring.Performed By: #### 3184-9 #### MOHIT CORTEZMOTZER L ([id number]) [facility] ([facility]) [address] [place], [place] [address]SVF Coag (Bld)234 [address]Commclaren northern mich[place] on above:Result Comment: Target ACT range will vary based on the patient population, clinical status, and surgical intervention occurring.Performed By: #### 3184-9 #### MOHIT SCHMOTZER L ([id number]) [facility] ([facility]) [address] [place], [place] [address]DBQ Coag (Bld)271 [address]Comment on above:Result Comment: Target ACT range will vary based on the patient population, clinical status, and surgical intervention occurring.Performed By: #### 3184-9 #### MOHIT SCHMOTZER L ([id number]) [facility] ([facility]) [address] [place], [place] [address]AXL Coag (Bld)316 [address]Comment on above:Result Comment: Target ACT range will vary based on the patient population, clinical status, and surgical intervention occurring.Performed By: #### 3184-9 #### MOHIT SCHMOTZER L ([id number]) [facility] ([facility]) [address] [place], [place] [address]VZG Coag (Bld)334 [address]Commclaren northern [place] on above:Result Comment: Target ACT range will vary based on the patient population, clinical status, and surgical intervention occurring.Performed By: #### 3184-9 #### MOHIT SCHMOTZER L ([id number]) [facility] ([facility]) [address] [place], [place] [address]JJNBDIYK VASCULAR PROCEDUREon 06-21-2024 [facility] Business Services Manager, [address] [place] [address] Cardiovascular Catheterization Report Patient Name: DIANN PATEL Performing Physician: [id number] Curry MD Study Date: 06/21/2024 Verifying Physician: [id number] Curry MD MRN/PID: [id number] Lithographic Photographer/Co-scrub: Ordering Physician: [id number] MARGARETH Meka JOHNASHERLEANA Date of /Age: 8 1955 / 68 years Fellow: [id number] Braeden Colin MD Gender: F Fellow: Study: Peripheral Intervention Procedure Description: After infiltration with 2% Lidocaine utilizing two-dimensional ultrasound and fluoroscopic guidance, the right femoral artery was cannulated with a Micro- Access Kit using a modified Seldinger technique. Subsequently a 5 Swazi sheath was placed contralateral in the right femoral artery. The arterial sheath was sized up to 6 Swazi. After completion of the procedure, A 6/7F Vascade Closure System was placed per protocol. Following routine access via the right DUMPSTER OPERATOR, we crossed up and over into the [...] Posterior Tibial Artery: Entire PT is a SENIOR PRODUCT DEVELOPMENT MANAGER. Left Peroneal Artery: The left peroneal artery revealed no evidence of significant disease. Left Dorsalis Pedis Artery: Mid distal DP is a SENIOR PRODUCT DEVELOPMENT MANAGER. Peripheral Interventions: We exchanged the short right DUMPSTER OPERATOR sheath into a 6F 45 cm Jose sheath. We crossed into the distal PTusing Command wire. We performed multiple runs of the entire left SFA [except for the stent segement] and proximal popliteal using M hawk device, followed by CT TECH and DCB. Percutaneous peripheral intervention of the [...] CONCLUSIONS: 1. LLE severe claudication and CLI Haakon class V: Patient status post successful revascularization using directional atherectomy_PTA_DCB to entire left SFA and popliteal with good results. 2. Continue home Plavix, resume home Eliquis tomorrow. 3. Follow-up in the clinic in 4 wee (more content not included)...UHRadiology, Radiologist, MD - 06/21/2024 [facility] Business Services Manager, [address] [place] [address] Cardiovascular Catheterization Report Patient Name: DIANN PATEL Performing Physician: [id number] Curry MD Study Date: 06/21/2024 Verifying Physician: Tatum Curry MD MRN/PID: [id number] Lithographic Photographer/Co-scrub: Ordering Physician: [id number] MARGARETH ESCAMILLA Date of /Age: 8 1955 / 68 years Fellow: [id number] Braeden Colin MD Gender: F Fellow: Study: Peripheral Intervention Procedure Description: After infiltration with 2% Lidocaine utilizing two-dimensional ultrasound and fluoroscopic guidance, the right femoral artery was cannulated with a Micro- Access Kit using a modified Seldinger technique. Subsequently a 5 Swazi sheath was placed contralateral in the right femoral artery. The arterial sheath was sized up to 6 Swazi. After completion of the procedure, A 6/7F Vascade Closure System was placed per protocol. Following routine access via the right DUMPSTER OPERATOR, we crossed up and over into the [...] Posterior Tibial Artery: Entire PT is a SENIOR PRODUCT DEVELOPMENT MANAGER. Left Peroneal Artery: The left peroneal artery revealed no evidence of significant disease. Left Dorsalis Pedis Artery: Mid distal DP is a SENIOR PRODUCT DEVELOPMENT MANAGER. Peripheral Interventions: We exchanged the short right DUMPSTER OPERATOR sheath into a 6F 45 cm Jose sheath. We crossed into the distal PTusing Command wire. We performed multiple runs of the entire left SFA [except for the stent segement] and proximal popliteal using M hawk device, followed by CT TECH and DCB. Percutaneous peripheral intervention of the [...] PT intervention. ICD 10 Codes: Atherosclerosis of moapa arteries of extremities with intermittent claudication, left leg-I70.212;Atherosclerosis of moapa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 with ulceration of other part of foot-I70.245 CPT Codes: Angiography, Each 1st additional vessel studied after (more content not included)...NOMS HealthcareINVASIVE VASCULAR PROCEDUREVirtua Mt. [facility] ([facility]), Business Services Manager, [address] [place] [address] Cardiovascular Catheterization Report Patient Name: DIANN PATEL Performing Physician: [id number] Curry MD Study Date: 06/21/2024 Verifying Physician: [id number] Curry MD MRN/PID: [id number] Lithographic Photographer/Co-scrub: Ordering Physician: [id number] MARGARETH ESCAMILLA Date of /Age: 8 1955 / 68 years Fellow: [id number] Braeden Colin MD Gender: F Fellow: Study: Peripheral Intervention Procedure Description: After infiltration with 2% Lidocaine utilizing two-dimensional ultrasound and fluoroscopic guidance, the right femoral artery was cannulated with a Micro- Access Kit using a modified Seldinger technique. Subsequently a 5 Swazi sheath was placed contralateral in the right femoral artery. The arterial sheath was sized up to 6 Swazi. After completion of the procedure, A 6/7F Vascade Closure System was placed per protocol. Following routine access via the right DUMPSTER OPERATOR, we crossed up and over into the [...] Posterior Tibial Artery: Entire PT is a SENIOR PRODUCT DEVELOPMENT MANAGER. Left Peroneal Artery: The left peroneal artery revealed no evidence of significant disease. Left Dorsalis Pedis Artery: Mid distal DP is a SENIOR PRODUCT DEVELOPMENT MANAGER. Peripheral Interventions: We exchanged the short right DUMPSTER OPERATOR sheath into a 6F 45 cm Jose sheath. We crossed into the distal PTusing Command wire. We performed multiple runs of the entire left SFA [except for the stent segement] and proximal popliteal using M hawk device, followed by CT TECH and DCB. Percutaneous peripheral intervention of the [...] CONCLUSIONS: 1. LLE severe claudication and CLI Haakon class V: Patient status post successful revascularization using directional atherectomy_PTA_DCB to entire left SFA and popliteal with good results. 2. Continue home Plavix, resume home Eliquis tomorrow. 3. Follow-up in the clinic in 4 weeks with repeat BRIDGER/TBI. If medial malleolus wound does not heal,then may consider PT intervention. ICD 10 Codes: Atherosclerosis of moapa arteries of extremities with intermittent claudication, left leg-I70.212;Atherosclerosis of moapa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 with ulceration of other part of foot-I70.245 CPT Codes: Angiography, Each 1st additional vessel studied after basic exam-23597; Angiography, Extremity,uni,S&I (PER)-07852; Ultrasound guidance for vascular access-15699; Revasc Fem/Po (more content not included)...[facility] FoundationRadiology Study observation (narrative)NOMS HealthcareINVASIVE VASCULAR PROCEDUREOrdered By: Radiologist Radiology on 05-34-6004DPQA [employer] Work Phone: Invasive vascular procedureon 06-21-2024 [facility] Business Services Manager, [address] [place] [address] Cardiovascular Catheterization Report Patient Name: DIANN PATEL Performing Physician: [id number] Curry MD Study Date: 06/21/2024 Verifying Physician: [id number] Curry MD MRN/PID: [id number] Lithographic Photographer/Co-scrub: Ordering Physician: [id number] MARGARETH ESCAMILLA Date of /Age: 8 1955 / 68 years Fellow: [id number] Braeden Colin MD Gender: F Fellow: Study: Peripheral Intervention Procedure Description: After infiltration with 2% Lidocaine utilizing two-dimensional ultrasound and fluoroscopic guidance, the right femoral artery was cannulated with a Micro- Access Kit using a modified Seldinger technique. Subsequently a 5 Swazi sheath was placed contralateral in the right femoral artery. The arterial sheath was sized up to 6 Swazi. After completion of the procedure, A 6/7F Vascade Closure System was placed per protocol. Following routine access via the right DUMPSTER OPERATOR, we crossed up and over into the [...] Posterior Tibial Artery: Entire PT is a SENIOR PRODUCT DEVELOPMENT MANAGER. Left Peroneal Artery: The left peroneal artery revealed no evidence of significant disease. Left Dorsalis Pedis Artery: Mid distal DP is a SENIOR PRODUCT DEVELOPMENT MANAGER. Peripheral Interventions: We exchanged the short right DUMPSTER OPERATOR sheath into a 6F 45 cm Jose sheath. We crossed into the distal PTusing Command wire. We performed multiple runs of the entire left SFA [except for the stent segement] and proximal popliteal using M hawk device, followed by CT TECH and DCB. Percutaneous peripheral intervention of the [...] CONCLUSIONS: 1. LLE severe claudication and CLI Haakon class V: Patient status post successful revascularization using directional atherectomy_PTA_DCB to entire left SFA and popliteal with good results. 2. Continue home Plavix, resume home Eliquis tomorrow. 3. Follow-up in the clinic in 4 wee (more content not included)...Nely Hoffman MD - 06/21/2024 [facility] Business Services Manager, [address] [place] [address] Cardiovascular Catheterization Report Patient Name: DIANN PATEL Performing Physician: [id number] Curry MD Study Date: 06/21/2024 Verifying Physician: [id number] Curry MD MRN/PID: [id number] Lithographic Photographer/Co-scrub: Ordering Physician: [id number] MARGARETH ESCAMILLA Date of /Age: 8 1955 / 68 years Fellow: [id number] Braeden Colin MD Gender: F Fellow: Study: Peripheral Intervention Procedure Description: After infiltration with 2% Lidocaine utilizing two-dimensional ultrasound and fluoroscopic guidance, the right femoral artery was cannulated with a Micro- Access Kit using a modified Seldinger technique. Subsequently a 5 Swazi sheath was placed contralateral in the right femoral artery. The arterial sheath was sized up to 6 Swazi. After completion of the procedure, A 6/7F Vascade Closure System was placed per protocol. Following routine access via the right DUMPSTER OPERATOR, we crossed up and over into the [...] Posterior Tibial Artery: Entire PT is a SENIOR PRODUCT DEVELOPMENT MANAGER. Left Peroneal Artery: The left peroneal artery revealed no evidence of significant disease. Left Dorsalis Pedis Artery: Mid distal DP is a SENIOR PRODUCT DEVELOPMENT MANAGER. Peripheral Interventions: We exchanged the short right DUMPSTER OPERATOR sheath into a 6F 45 cm Jose sheath. We crossed into the distal PTusing Command wire. We performed multiple runs of the entire left SFA [except for the stent segement] and proximal popliteal using M hawk device, followed by CT TECH and DCB. Percutaneous peripheral intervention of the [...] CONCLUSIONS: 1. LLE severe claudication and CLI Haakon class V: Patient status post successful revascularization using directional atherectomy_PTA_DCB to entire left SFA and popliteal with good results. 2. Continue home Plavix, resume home Eliquis tomorrow. 3. Follow-up in the clinic in 4 weeks with repeat BRIDGER/TBI. If medial malleolus wound does not heal,then may consider PT intervention. ICD 10 Codes: Atherosclerosis of moapa arteries of extremities with intermittent claudication, left leg-I70.212;Atherosclerosis of moapa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 with ulceration of other part of foot-I70.245 CPT Codes: Angiography, Each 1st additional vessel studied after basic exa (more content not included)...[facility] Work Phone: [facility] Work Phone: Radiology Study observation (narrative)[facility] Work Phone: US.doppler Extremity arteries - bilateral for physiologic artery study at rest and with exerciseon 06-16-2024 [place] [address] and Vascular Lab Report VASC US PVR WITHOUT EXERCISE Patient Name: DIANN AMANDA Reading Physician: [id number] Christine Beyer MD Study Date: 06/15/2024 Ordering Physician: [id number] MICHEAL NOVA MRN/PID: [id number] Technologist: Miles Costello RVT Technologist 2: Date of /Age: 8 1955 / 68 years Gender: F Admission Status: Outpatient Location Performed: [facility] Diagnosis/ICD: Peripheral vascular disease, unspecified-I73.9 CPT Codes: 39278 Peripheral artery PVR (multi segmental pressure CRITICAL [...] Left Brachial Pressure 171 mmHg 163 mmHg [id number] Christine Beyer MD Final Radiology, Radiologist, MD - 06/16/2024 [place] [address] and Vascular Lab Report VASC US PVR WITHOUT EXERCISE Patient Name: DIANN PATEL Reading Physician: [id number] Christine Beyer MD Study Date: 06/15/2024 Ordering Physician: [id number] NOVA MRN/PID: [id number] Technologist: Miles Costello RVT Technologist 2: Date of /Age: 8 1955 / 68 years Gender: F Admission Status: Outpatient Location Performed: [facility] Diagnosis/ICD: Peripheral vascular disease, unspecified-I73.9 CPT Codes: 64450 Peripheral artery PVR (multi segmental pressure CRITICAL RESULT Critical Result: Severe PAD in left leg. Notification called to MICHEAL NOVA APRN-CINDER PIT WORKER on 06/15/2024 at 10:50:00 AM by Miles [...] Left Brachial Pressure 171 mmHg 163 mmHg [id number] Christine Beyer MD Final [facility].doppler Extremity arteries - bilateral for physiologic artery study at rest and with exerciseOrdered By: Radiologist Radiology on 06-16-2024 [facility] [employer] Work Phone: cBC panel Auto (Bld)on 87-44-3952Qlrjfvzusgf distribution width (RBC) [Ratio]14.6 %High11.5 - 14.5 %[facility] HospitalHematocrit (Bld) [Volume fraction]35.8 %Low36.0 - 46.0 %[facility] HospitalHemoglobin (Bld) [Mass/Vol]11.9 g/dLLow12.0 - 16.0 g/dL [facility] HospitalInterpretation and review of laboratory results AbnormalUnProMedica Defiance Regional Hospital (RBC) [Entitic mass]27.7 pg26.0 - 34.0 pgUnOhio Valley Hospital (RBC) [Mass/Vol]33.2 g/dL32.0 - 36.0 g/dLUnThe Hospitals of Providence [facility] Campus ClevelandMCV (RBC) [Entitic vol]83 fL80 - 100 fLUniEast Ohio Regional HospitalNucleated RBC/100 WBC (Bld) [Ratio]0.0 % [facility] HospitalPlatelets (Bld) [#/Vol]211 10*3/[facility] HospitalRBC (Bld) [#/Vol]4.30 10*6/[facility] HospitalWBC (Bld) [#/Vol]13.3 10*3/[facility] HospitalErythrocyte distribution width (RBC) [Ratio] 14.6 %High11.5-14.5UnMemorial HospitalComment on above:Performed By: #### 54731-9 #### MOHIT Car (05047) [facility] ([facility]) [address] [place] [address] 14150Dqluplomry (Bld) [Volume fraction]35.8 %Low36.0-46.0 Lutheran HospitalComment on above:Performed By: #### 78098-5 #### MOHIT Car (62076) [facility] ([facility]) [address] [place] [address] 47935Bhjyqjqdlc (Bld) [Mass/Vol]11.9 g/dLLow12.0-16.0UnMemorial HospitalComment on above:Performed By: #### 56215-7 #### MOHIT Car (11777) [facility] ([facility]) [address] [place] [address] 98024XCF (RBC) [Entitic mass]27.7 rvSmpgkq94.0-34.0UnMemorial HospitalComment on above:Performed By: #### 75719-9 #### MOHIT Car (60065) [facility] ([facility]) [address] [place] [address] 68507WXRU (RBC) [Mass/Vol]33.2 g/zTTmfzsn49.0-36.0UnMemorial HospitalComment on above:Performed By: #### 04896-4 #### MOHIT Car (31144) [facility] ([facility]) [address] [place], [place] [address]BET (RBC) [Entitic vol]83 aWJzxych46-759PusbcbtnflMemorial HospitalComment on above:Performed By: #### 73955-2 #### MOHIT Car (77624) [facility] ([facility]) [address] [place], [place] [address]Ygtugesiv RBC/100 WBC (Bld) [Ratio]0.0 /100 WBCsNormal0.0-0.0 Luther[facility] HospitalComment on above:Performed By: #### 75138-3 #### MOHIT Car (54468) [facility] ([facility]) [address] [place] [address] 37332Ofeqxadnh (Bld) [#/Vol]211 x10*3/eISmrrcq209-423WmnzqhqrwxMemorial HospitalComment on above:Performed By: #### 21399-8 #### MOHIT Car (52160) [facility] ([facility]) [address] [place], [place] [address]WIC (Bld) [#/Vol]4.30 x10*6/uLNormal4.00-5.20UnMemorial HospitalComment on above:Performed By: #### 43152-2 #### MOHIT Car (43788) [facility] ([facility]) [address] [place] [address] 23117ZGW (Bld) [#/Vol]13.3 x10*3/uLHigh4.4-11.3Lutheran HospitalComment on above:Performed By: #### 89088-1 #### MOHIT Car (63387) [facility] ([facility]) [address] [place] [address] 86435Lsfechaduga tissue factor inducedon 63-31-0189BA Coag (PPP) [Time]12.6 sNormal9.8-12.8UnMemorial HospitalComment on above:Performed By: #### 5902-2 #### MOHIT Car (95638) [facility] ([facility]) [address] [place], [place] [address]GP Coag (PPP) [Time]on 33-86-6457ZRH Coag (PPP) [Relative time]1.1 {INR}0.9 - 1.1UnSumma Health Barberton CampusInterpretation and review of laboratory resultsNormalUniEast Ohio Regional HospitalUnSumma Health Barberton CampusINR Coag (PPP) [Relative time]1.7Baginr8.9-1.1UnMemorial HospitalComment on above:Performed By: #### 5902-2 #### MOHIT Car (23788) [facility] ([facility]) [address] [place], [place] [address]Qlzjqur-BVNrf 57-71-2094VL Coag (PPP) [Time]12.6 [facility] HospitalRenal function 2000 panelon 55-03-7686Jjfqmmj BCP dye [Mass/Vol]4.7 g/dL3.4 - 5.0 g/dLUnSumma Health Barberton CampusAnion gap [Moles/Vol]14 mmol/L10 - 20 mmol/[facility] HospitalCalcium [Mass/Vol]9.8 mg/dL8.6 - 10.6 mg/dLUnSumma Health Barberton CampusChloride [Moles/Vol]104 mmol/L98 - 107 mmol/[facility] HospitalCO2 [Moles/Vol]25 mmol/L21 - 32 mmol/[facility] HospitalCreatinine [Mass/Vol]1.36 mg/dLHigh0.50 - 1.05 mg/dLUnSumma Health [facility] Campus GFR/1.73 sq M.predicted among non-blacks MDRD (S/P/Bld) [Vol rate/Area]42 mL/min/{1.73_m2}Low PINFUniEast Ohio Regional HospitalComment on above: Calculations of estimated GFR are performed using the 2020 CKD-EPI Study Refit equation without therace variable for the IDMS-Traceable creatinine methods. https://jasn.asnjournals.org/content//ASN.4248232971 Glucose [Mass/Vol]205 mg/yVHidg97 - 99 mg/dLUnSumma Health [facility] Campus Interpretation and review of laboratory resultsAbnoalUniEast Ohio Regional HospitalPhosphate [Mass/Vol]4.1 mg/dL2.5 - 4.9 mg/dLSheltering Arms HospitalComment on above:The performance characteristics of phosphorus testing in heparinized plasma have been validated by the individual laboratory site where testing is performed. Testing on heparinized plasma is not approved by the FDA; however, such approval is not necessary.Potassium [Moles/Vol]5.5 mmol/L High3.5 - 5.3 mmol/[facility] HospitalSodium [Moles/Vol]137 mmol/L136 - 145 mmol/[facility] HospitalUrea nitrogen [Mass/Vol] 53 mg/dLHigh6 - 23 mg/dLUnSumma Health Barberton CampusUnSumma Health Barberton CampusAlbumin BCP dye [Mass/Vol]4.7 g/dLNormal3.4-5.0UnMemorial HospitalComment on above:Performed By: #### 00809-5 #### MOHIT Car (36678) [facility] ([facility]) [address] [place] [address]Ofbzj gap [Moles/Vol]14 mmol/RHkfxkt19-47AzjnuboontMemorial HospitalComment on above:Performed By: #### 12764-7 #### MOHIT Car (52442) [facility] ([facility]) [address] [place] [address] 90863Cnrakuq [Mass/Vol]9.8 mg/dLNormal8.6-10.6UnMemorial HospitalComment on above:Performed By: #### 76571-0 #### MOHIT Car (52571) [facility] ([facility]) [address] [place] [address] 87384Zkrwnzcr [Moles/Vol]104 mmol/UVtdrkn54-939CpqnotbgpvMemorial HospitalComment on above:Performed By: #### 60466-7 #### MOHIT Car (94560) [facility] ([facility]) [address] [place], [place] [address]LK2 [Moles/Vol]25 mmol/GNcegcy68-95MpfdqmjhkeMemorial HospitalComment on above:Performed By: #### 74877-7 #### MOHIT Car (51551) [facility] ([facility]) [address] [place], [place] [address]Rqodtrmane [Mass/Vol]1.36 mg/dLHigh0.50-1.05UnMemorial HospitalComment on above:Performed By: #### 55724-3 #### MOHIT Car (53274) [facility] ([facility]) [address] [place] [address]Jylsehcehl filtration rate/1.73 sq M.rwxaphnlw50 mL/min/1.73m*2Low>60UnMemorial HospitalComment on above:Result Comment: Calculations of estimated GFR are performed using the 2020 CKD-EPI Study Refit equation without the race variable for the IDMS-Traceable creatinine methods. https://jasn.asnjournals.org/content//ASN.8493766111Sxrwcheih By: #### 18679-2 #### MOHIT Car (98827) [facility] ([facility]) [address] [place], [place] [address]Xfzayii [Mass/Vol]205 mg/wAZgtj09-13TvxmobowxkMemorial HospitalComment on above:Performed By: #### 99070-7 #### MOHIT Car (65646) [facility] ([facility]) [address] [place] [address] 08571Srcbafghg [Mass/Vol]4.1 mg/dLNormal2.5-4.9UnMemorial HospitalComment on above:Result Comment: The performance characteristics of phosphorus testing in heparinized plasma have bee n validated by the individual laboratory site where testing is performed. Testing on heparinizedplasma is not approved by the FDA; however, such approval is not necessary.Performed By: #### 12751-2 #### MOHIT Car (55574) [facility] ([facility]) [address] [place], [place] [address]Mugljsxng [Moles/Vol]5.5 mmol/LHigh3.5-5.3Lutheran HospitalComment on above:Performed By: #### 32437-4 #### MOHIT Car (58282) [facility] ([facility]) [address] [place] [address] 92692Eisqcp [Moles/Vol]137 mmol/QOqcvkw473-891EkkjsanbkuMemorial HospitalComment on above:Performed By: #### 54725-9 #### MOHIT Car (48992) [facility] ([facility]) [address] [place] [address] 41813Quhp nitrogen [Mass/Vol]53 mg/dLHigh6-23Lutheran HospitalComment on above:Performed By: #### 65258-8 #### MOHIT Car (21496) [facility] ([facility]) [address] [place] [address] 05017VG.doppler Extremity arteries - bilateral for physiologic artery study at rest and with exerciseon 61-75-2456Bbrrtfuko Study observation (narrative)[facility] US PVR WITH EXERCISEon 48-24-5995RMEU US PVR WITH EXERCISE[address] [address] and Vascular Lab Report [facility] US PVR WITHOUT EXERCISE Patient Name: DIANN Raines Physician: [id number] Christine Beyer MD Study Date: 06/15/2024 Ordering Physician: [id number] MICHEAL NOVA MRN/PID: [id number] Technologist: Miles Costello RVT Technologist 2: Date of /Age: 8 1955 / 68 years Gender: F Admission Status: Outpatient Location Performed: [facility] Diagnosis/ICD: Peripheral vascular disease, unspecified-I73.9 CPT Codes: 03862 Peripheral artery PVR (multi segmental pressure CRITICAL [...] Left Brachial Pressure 171 mmHg 163 mmHg 53787 Christine Beyer MD Final [facility] FoundationCreatinine [Mass/volume] in Serum or PlasmaOrdered By: Rodrigo Yousif on 05-19-2024 Creatinine [Mass/Vol]0.98 mg/dL0.60-1.20[facility] SouthNo Panel InformationOrdered By: Rodrigo Yousif on 83-66-4183Ichizbfkf GFR (CKD-EPI)> 60.0 mL/MinSelect Medical Specialty Hospital - Columbus SouthPharmacy Creatinine Clearance (Chem51.32[facility] SouthUrea nitrogen [Mass/volume] in Serum or PlasmaOrdered By: Rodrigo Yousif on 95-83-1747Ftjc nitrogen [Mass/Vol]40 mg/dLChoate Memorial HospitalSelect Medical Specialty Hospital - TrumbullEGMENTAL BLOOD PRESSUREon 39-71-0921[address] [address] Cardiology Report Signed Patient: DIANN PATEL MR#: [id number] : 1955 Acct:[id number] Age/Sex: 68 / F ADM Date: 12/03/23 Loc: CARD Attending Dr: ALEXIS GILMORE Ordering Physician: ALEXIS GILMORE Date of Service: 12/03/23 Procedure(s): CA segmental UE or LE LIZETH Accession Number(s): [id number] cc: CHAMP BELL ; ALEXIS GILMORE [facility] Test Date: 2023-12-03 Pat Name: DIANN PATEL Department: Room: - 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[place] MC : 1955 Requested By: ALEXIS GILMORE Order Number: [id number] Reading MD: LIZETTE MCGHEE Interpretive Statements Monophasic [...] 12/04/23 0727 12/04/23 0727 DD/ 1346 TD/TT: Negotiator Sales:JULIOHRadiology, Radiologist, - 12/04/2023 [place] [address] Cardiology Report Signed Patient: DIANN PATEL MR#: [id number] : 1955 Acct:[id number] Age/Sex: 68 / F ADM Date: 12/03/23 Loc: CARD Attending Dr: ALEXIS GILMORE Ordering Physician: ALEXIS GILMORE Date of Service: 12/03/23 Procedure(s): CA segmental UE or LE LIZETH Accession Number(s): [id number] cc: CHAMP BELL ; ALEXIS GILMORE [facility] Test Date: 2023-12-03 Pat Name: DIANN PATEL Department: Room: - 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USH MC : 1955 Requested By: ALEXIS GILMORE Order Number: [id number] Reading MD: LIZETTE MCGHEE Interpretive Statements Monophasic [...] 12/04/23 0727 12/04/23 0727 DD/ 1346 TD/TT: Negotiator Sales: PRIYANKA PerdomoSEGMENTAL BLOOD PRESSUREOrdered By: Radiologist Radiology on 88-58-1555COXV [employer] Work Phone: SEGMENTAL BLOOD PRESSUREon 53-44-4984Vozxszjfe Study observation (narrative)NOMS HealthcareCT STROKE HEAD WOon 21-34-8107SN STROKE HEAD WOHEAD CT WITHOUT CONTRAST: 01/31/2023 [...] Electronically authenticated by: CHANTAL KILLIAN Date: 2023-01-31 12:44[facility] HospitalCreatinine and Glomerular filtration rate.predicted panel (S/P/Bld)Ordered By: Geo Mathew on 81-58-1143Jpyvujbtlp [Mass/Vol]1.75 mg/dL0.44-1.03[facility] SouthEstimated glomerular filtration rate (GFR) non- AmericanOrdered By: Geo Mathew on 01-13-2023 GFR/1.73 sq M.predicted among non-blacks MDRD (S/P/Bld) [Vol rate/Area]29 mL/Min [facility] SouthNo Panel InformationOrdered By: Geo Mathew on 71-54-8397Ustlbgrte GFR ()35 mL/MinSelect Medical Specialty Hospital - Columbus SouthComment on above:GFR estimated reference range: According to KDOQI guidelines, <60 ml/min/1.73m2 is sufficient todiagnose a patient with chronic kidney disease.Pharmacy Creatinine Clearance (Chem27.91[facility] SouthUrea nitrogen [Mass/volume] in Serum or PlasmaOrdered By: Geo Mathew on 29-00-3994Ypne nitrogen [Mass/Vol]48 mg/dL9-[facility] SouthALBUMINon 83-60-6461Aprwojy [Mass/Vol]3.5 g/dLNormal 3.4-5.0[facility] CenterComment on above:Performed By: #### BMP, PREALB, ALB ####[facility] [address] [place] [address]Dr. Sruthi LariosC AUTO DIFFon 82-71-7048GYWX #0.0 103/ulNormal0.0-0.1[facility] CenterComment on above:Performed By: #### CBC #### [facility] [address] [place] [address] [address] Sruthi ArechigaBasophils/100 WBC (Bld)0.5 %Normal0.2-2.0[facility] Comment on above:Performed By: #### CBC #### [facility] [address] [place] [address] [address] Sruthi Shields #0.3 103/ulNormal0.0-0.7The [facility] CenterComment on above: Performed By: #### CBC #### [facility] [address] [place] [address] [address] Sruthi Joyosinophils/100 WBC (Bld)3.6 %Normal0.9-7.0[facility] Comment on above:Performed By: #### CBC #### [facility] [address] [place] [address] [address] Sruthi Joyrythrocyte distribution width (RBC) [Ratio]14.5 %Rboyga62.0-15.0 [facility] CenterComment on above:Performed By: #### CBC #### [facility] [address] [place] [address] [address] Sruthi ArechigaHematocrit (Bld) [Volume fraction]37.7 %Bdcctw85.0-48.0The [facility] CenterComment on above:Performed By: #### CBC #### [facility] [address] [place] [address] [address] Sruthi ArechigaHemoglobin (Bld) [Mass/Vol]11.9 g/dLCritically low12.0-16.0[facility] on above:Performed By: #### CBC #### [facility] [address] [place] [address] [address] Sruthi Conklin #0.02 10e3/ulNormal0.00-0.03[facility] on above:Performed By: #### CBC #### [facility] [address] [place] [address] Dr. Sruthi Conklin %0.2 %Normal0.0-0.5[facility] on above: Performed By: #### CBC #### [facility] [address] [place] [address] Dr. Sruthi Serrnao #2.7 103/ulNormal1.2-3.8[facility] on above:Performed By: #### CBC #### [facility] [address] [place] [address] Dr. Sruthi Tijerinahocytes/100 WBC (Bld)32.2 %Gqhjlh82.5-60.0[facility] on above:Performed By: #### CBC #### [facility] [address] [place] [address] Dr. Sruthi ToscanoUAL DIFF REQNONormalThe [facility] on above: Performed By: #### CBC #### [facility] [address] [place] [address] Dr. Sruthi Torres (RBC) [Entitic mass]26.8 lnTrzorh38.7-34.0[facility] on above:Performed By: #### CBC #### [facility] [address] [place] [address] Dr. Sruthi Torres (RBC) [Mass/Vol]31.6 g/iIMmuaya81.9-35.2[facility] on above:Performed By: #### CBC #### [facility] [address] [place] [address] Dr. Sruthi Torres (RBC) [Entitic vol]84.9 eKAdnsbf74.0-99.0The [facility]btown HospitalComment on above:Performed By: #### CBC #### [facility] [address] [address] Dr. Sruthi Valladares #0.8 103/ulNormal0.3-0.8The [facility] CenterComment on above:Performed By: #### CBC #### [facility] [address] [address] [address] Sruthi Alegriaocytes/100 WBC (Bld)9.6 %Normal1.7-12.0The [facility] Comment on above:Performed By: #### CBC #### [facility] [address] [place] [address] Dr. Sruthi Carl #4.5 103/ulNormal1.4-6.5The [facility] CenterComment on above:Performed By: #### CBC #### [facility] [address] [place] [address] Dr. Sruthi Gomezutrophils/100 WBC (Bld)53.9 %Jcsukn35.0-75.0The [facility] CenterComment on above:Performed By: #### CBC #### [facility] [address] [place] [address] Dr. Sruthi Flores mean volume (Bld) [Entitic vol]10.8 fLNormal9.5-13.5The [facility] CenterComment on above:Performed By: #### CBC #### [facility] [address] [place] [address] Dr. Sruthi ArechigaPLT246 103/exGoilta134-380Iak [facility] CenterComment on above: Performed By: #### CBC #### [facility] [address] [place] [address] Dr. Sruthi ArechigaRBC4.44 106/ulNormal4.20-5.40The [facility] CenterComment on above:Performed By: #### CBC #### [facility] [address] [place] [address] Dr. Sruthi ArechigaWBC8.4 103/ulNormal4.0-11.0The [facility] CenterComment on above: Performed By: #### CBC #### [facility] [address] [address] [address] Sruthi Choevid-19 PCR ([facility])on 47-02-1410DLMI-CoV-2 (COVID-19) RNA KOLE+probe Ql (Unsp spec)Not detectedNormalNOT DETECTEDCleveland Clinic Ment[facility] Comment on above:Result Comment: This test is not yet approved or cleared by the [place] FDA. When there are no FDA-approved or cleared tests available, and other criteria are met, FDA can make tests available under an emergency access mechanism called an Emergency Use Authorization (EUA). The EUA for this test is supported by the [place] of Health and Human Service's (HHS's) declaration [...] consistent with SARS-CoV-2.Performed By: #### CVDTBH #### [facility] [address] [place] [address] Dr. Sruthi ArechigaGLYCOHEMOGLOBIN A1Con 57-46-3780FGO RECOMMENDATIONSEE BELOWNormal The [facility] CenterCommclaren [place] on above:Result Comment: ADA RECOMMENDED LIMIT 4.0 - 6.0 ADA THERAPEUTIC TARGET < 7.0 ACTION SUGGESTED > 7.0Performed By: #### HSTROPN #### [facility] [address] [place] [address] Dr. Sruthi ArechigaGlucose [Mass/Vol]255 mg/dLNormalThUniversity [facility] on above:Performed By: #### HSTROPN #### [facility] [address] [place] [address] Dr. Sruthi ArechigaHbA1c (Bld) [Mass fraction]10.5 %Critically high4.5-6.2The [facility] CenterComment on above:Performed By: #### HSTROPN #### [facility] [address] [address] [address] Sruthi CEJA #1on [id number] NARES #1Culture Observations: NO GROWTH OF MRSA AT 48 HOURS.NormalThe [facility]btown HospitalComment on above: Performed By: #### MRSAN1 ####[facility] [address]jpxx[address] [place], [place] [address]Dr. Sruthi ChangPREALBUMINon 74-80-8784Ojollhiedv [Mass/Vol]23.6 mg/lIAfifqc66.9-45.5The [facility] CenterComment on above: Performed By: #### BMP, PREALB, ALB ####[facility] [address] [place], [place] [address]Dr. Sruthi ChangPROF CHEM 8 (BAS METB)on 26-79-5294Hljgi gap [Moles/Vol]11.2 mmol/LNormalThe [facility] HospitalComment on above:Performed By: #### BMP, PREALB, ALB ####[facility] [address]qbj[address] [place], [place] [address]Dr. Sruthi ChangCalcium [Mass/Vol]9.1 mg/dL Normal8.5-10.1The [facility] CenterComment on above:Performed By: #### BMP, PREALB, ALB ####[facility] Oruyirf[address] [place], [place] [address]Dr. Yilan ChangChloride [Moles/Vol]105 mmol/TNphecg33-287Chw [facility] CenterComment on above:Performed By: #### BMP, PREALB, ALB ####[facility] Gbyczz[address] [place], [place] [address]Dr. Kamalalan ChangCO2 [Moles/Vol]26.3 mmol/ZEtypqm00.0-32.0The [facility] CenterComment on above: Performed By: #### BMP, PREALB, ALB ####[facility] Ycwib[address]pzq[address] [place], [place] [address]Dr. Yilan ChangCreatinine [Mass/Vol]0.72 mg/dL Normal0.55-1.02The [facility] CenterComment on above:Performed By: #### BMP, PREALB, ALB ####[facility] [address] [address]Dr. Yilan ChangEGFR-AF GABONESE>60Normal>=60The [facility] CenterComment on above:Performed By: #### BMP, PREALB, ALB ####[facility] [address] [address]Dr. Yilan ChangEGFR-NON AF GABONESE>60Normal >=60The [facility] CenterComment on above:Performed By: #### BMP, PREALB, ALB ####[facility] [address] [address]Dr. Yilan ChangGlucose [Mass/Vol]119 mg/dLCritically exmi97-516Fpx [facility] Comment on above:Performed By: #### BMP, PREALB, ALB ####[facility] Ahycbxdgqm[address] [place], [place] [address]Dr. Yilan ChangPotassium [Moles/Vol]4.5 mmol/LNormal3.5-5.1The [facility] CenterComment on above: Performed By: #### BMP, PREALB, ALB ####[facility] [address] [address]Dr. Yilan ChangSodium [Moles/Vol]138 mmol/LNormal 136-145The [facility] CenterComment on above:Performed By: #### BMP, PREALB, ALB ####[facility] [address] [address]Dr. Yilan ChangUrea nitrogen [Mass/Vol]18.0 mg/dLNormal7.0-18.0The [facility] Comment on above:Performed By: #### BMP, PREALB, ALB ####[facility] [address] [address]Dr. Yilan ChangUrea nitrogen/Creatinine [Mass ratio]25.0 mg/mgNormalThe [facility] CenterComment on above:Performed By: #### BMP, PREALB, ALB ####[facility] [address] [id number]. Sruthi ArechigaCovid-19 PCR (CVDTB)on 29-63-2871YOHW-CoV-2 (COVID-19) RNA KOLE+probe Ql (Unsp spec)Not detectedNormal NOT DETECTEDThe [facility] Hospitalment on above:Result Comment: When diagnostic testing [...] for this test is supported by the Home Health Nurse Licensed Practical of Health and Human Service's declaration that [...] longer be used).Performed By: #### CVDTBH #### [facility] [address] [address] [address] Sruthi Sarmiento 06-79-7978Jjbguncfjxp peptide B (Bld) [Mass/Vol]1389.0 pg/mLCritically high<=900.0The [facility] CenterComment on above:Performed By: #### BNP, BMP ####[facility] [address] [place], [place] [address]MiDr. Sruthi ArechigaCBC AUTO DIFFon 34-91-2171MQHH #0.0 103/ulNormal0.0-0.1 The [facility] CenterComment on above:Performed By: #### CBC ####[facility] [address] [address]Dr.Yilan Arechiga Basophils/100 WBC (Bld)0.5 %Normal0.2-2.0The [facility] CenterComment on above: Performed By: #### CBC ####[facility] N[address] [place], [place] [address]Dr.Yilan ChangEO #0.2 103/ulNormal0.0-0.7The [facility] CenterComment on above:Performed By: #### CBC ####[facility] Ifwccdbjvk[address] [place], [place] [address]Dr.Sruthi ChangEosinophils/100 WBC (Bld)2.4 %Normal0.9-7.0The [facility] CenterComment on above:Performed By: #### CBC ####[facility] [address]exidvvp[address] [place], [place] [address]Dr.Kamalalan ChangErythrocyte distribution width (RBC) [Ratio]13.2 %Normal 11.0-15.0The [facility] CenterComment on above:Performed By: #### CBC ####[facility] [address]fl[address]zc[address] [place], [place] [address]Dr. Kamalalan ChangHematocrit (Bld) [Volume fraction]32.4 %Critically low36.0-48.0The [facility] CenterComment on above:Performed By: #### CBC ####[facility] [address]xubnzng[address] [place], [place] [address]Dr.Sruthi ChangHemoglobin (Bld) [Mass/Vol]10.2 g/dLCritically low12.0-16.0The [facility] CenterComment on above:Performed By: #### CBC ####[facility] Gtnikbyrua[address] [place], [place] [address]Dr.Kamalalan ChangIG #0.04 10e3/ulCritically high0.00-0.03 The [facility] CenterComment on above:Performed By: #### CBC ####[facility] X[address]ucgjojlm[address] [place], [place] [address]Dr.Kamalalan ChangIG % 0.5 %Normal0.0-0.5The [facility] CenterComment on above:Performed By: #### CBC ####[facility] Brnhkyffmv[address] [place], [place] [address]Dr. Sruthi ArechigaLYH #2.1 103/ulNormal1.2-3.8The [facility] CenterComment on above: Performed By: #### CBC ####[facility] [address] [address]Dr.Sruthi ArechigaLymphocytes/100 WBC (Bld)23.9 %Normal 20.5-60.0The [facility] CenterComment on above:Performed By: #### CBC ####[facility] [address]feiuvdj[address] [place], [place] [address]Dr. Sruthi ArechigaMANUAL DIFF REQNONormalThe [facility] CenterComment on above: Performed By: #### CBC ####[facility] Zmxonklkjd[address] [place], [place] [address]Dr.Sruthi ArechigaH (RBC) [Entitic mass]26.8 pgNormal 26.7-34.0The [facility] CenterComment on above:Performed By: #### CBC ####[facility] Cdlrtnisuj[address] [place], [place] [address]Dr. Sruthi ArechigaHC (RBC) [Mass/Vol]31.5 g/nXBqnunk06.9-35.2The [facility] Comment on above:Performed By: #### CBC ####[facility] Glflyjfzvb[address] [place], [place] [address]Dr.Sruthi ArechigaMCV (RBC) [Entitic vol]85.0 fL Xhjppr28.0-99.0The [facility] CenterComment on above:Performed By: #### CBC ####[facility] Lktypncxka[address] [place], [place] [address]Dr. Sruthi ArechigaMONO #1.1 103/ulCritically high0.3-0.8The [facility] CenterComment on above:Performed By: #### CBC ####[facility] M[address]clfjnv[address] [place], [place] [address]Dr.Sruthi ArechigaMonocytes/100 WBC (Bld)13.1 %Critically high1.7-12.0The [facility] CenterComment on above:Performed By: #### CBC ####[facility] [address] [address]Dr. Sruthi ChangNEUT #5.2 103/ulNormal1.4-6.5The [facility] CenterComment on above: Performed By: #### CBC ####[facility] Vbuurykwrf[address] [place], [place] [address]Dr.Sruthi ChangNeutrophils/100 WBC (Bld)59.6 %Normal 43.0-75.0The [facility] CenterComment on above:Performed By: #### CBC ####[facility] Kvcckjffwn[address] [place], [place] [address]Dr. Sruthi ChangPlatelet mean volume (Bld) [Entitic vol]12.6 fLNormal9.5-13.5The [facility] CenterComment on above:Performed By: #### CBC ####[facility] Xfxtjdwouw[address] [place], [place] [address]Dr.Sruthi WoftwMDK493 103/ul Critically phh353-916Czh [facility] CenterComment on above:Performed By: #### CBC ####[facility] Falmvytdii[address] [place], [place] [address]Dr. Sruthi ChangRBC3.81 106/ulCritically low4.20-5.40The [facility] on above:Performed By: #### CBC ####[facility] Smhfckkrvh[address] [place], [place] [address]Dr.Sruthi ChangWBC8.7 103/ulNormal4.0-11.0The [facility] CenterComment on above:Performed By: #### CBC ####[facility] Fvwavpivcv[address] [place], [place] [address]Dr.Sruthi ChangPROF CHEM 8 (BAS METB)on 55-20-2722Zwpok gap [Moles/Vol]12.0 mmol/LNormalThe [facility] CenterComment on above:Performed By: #### BNP, BMP ####[facility] Inphvwfraw[address] [place], [place] [address]Dr. Kamalasven ChangCalcium [Mass/Vol]9.0 mg/dLNormal8.5-10.1The [facility] CenterComment on above:Performed By: #### BNP, BMP ####[facility] Zedxelpdix[address] [place], [place] [address]Dr. Yilan ChangChloride [Moles/Vol]99 mmol/LNormal 98-107The [facility] CenterComment on above:Performed By: #### BNP, BMP ####[facility] Dpfmgftiqo[address] [place], [place] [address]Dr. Yilan ChangCO2 [Moles/Vol]29.4 mmol/PGtfnsg21.0-32.0The [facility] CenterComment on above:Performed By: #### BNP, BMP ####[facility] Gqrktjmuya[address] [place], [place] [address]Dr. Yilan ChangCreatinine [Mass/Vol]0.86 mg/dL Normal0.55-1.02The [facility] CenterComment on above:Performed By: #### BNP, BMP ####[facility] [address]yrrjfoc[address] [place], [place] [address]Dr. Yilan ChangEGFR-AF GABONESE>60Normal>=60The [facility] CenterCommclaren [place] on above: Performed By: #### BNP, BMP ####[facility] [address]qfwpvad[address] [place], [place] [address]Dr. Yilan ChangEGFR-NON AF GABONESE>60Normal>=60The [facility] CenterCommclaren [place] on above:Performed By: #### BNP, BMP ####[facility] Mumzyprwfq[address] [place], [place] [address]Dr. Yilan Arechiga Glucose [Mass/Vol]185 mg/dLCritically ncod96-441Dhy [facility] CenterComment on above:Performed By: #### BNP, BMP ####[facility] Hzhfcaiess[address] [place], [place] [address]Dr. Yilan ChangPotassium [Moles/Vol]4.4 mmol/LNormal 3.5-5.1The [facility] CenterComment on above:Performed By: #### BNP, BMP ####[facility] [address]jhgvseuc[address] [place], [place] [address]Dr. Yilan ChangSodium [Moles/Vol]136 mmol/EUbsunz150-512Mfc [facility] CenterComment on above:Performed By: #### BNP, BMP ####[facility] [address] [address]DrIndu ArechigaUrea nitrogen [Mass/Vol]27.0 mg/dL Critically high7.0-18.0The [facility] CenterComment on above:Performed By: #### BNP, BMP ####[facility] [address] [address]DrIndu Negro ChangUrea nitrogen/Creatinine [Mass ratio]31.4 mg/mgNormalThe [facility] CenterComment on above:Performed By: #### BNP, BMP ####[facility] [address] [address]Dr. Sruthi LariosC AUTO DIFFon 47-73-6996KGFW #0.0 103/ulNormal0.0-0.1The [facility] CenterComment on above:Performed By: #### CVDTBH #### [facility] [address] [place] [address] Dr. Sruthi ArechigaBasophils/100 WBC (Bld)0.4 %Normal0.2-2.0The [facility] Comment on above:Performed By: #### CVDTBH #### [facility] [address] [place] [address] Dr. Sruthi Shields #0.2 103/ulNormal0.0-0.7The [facility] CenterComment on above: Performed By: #### CVDTBH #### [facility] [address] [place] [address] Dr. Sruthi Joyosinophils/100 WBC (Bld)2.4 %Normal0.9-7.0The [facility] Comment on above:Performed By: #### CVDTBH #### [facility] [address] [place] [address] Dr. Sruthi Joyrythrocyte distribution width (RBC) [Ratio]13.3 %Kwjlip61.0-15.0 The [facility] CenterComment on above:Performed By: #### CVDTBH #### [facility] [address] [address] [address] Sruthi ArechigaHematocrit (Bld) [Volume fraction]32.0 %Critically low36.0-48.0 The [facility] CenterComment on above:Performed By: #### CVDTBH #### [facility] [address] [address] [address] Sruthi ArechigaHemoglobin (Bld) [Mass/Vol]10.0 g/dLCritically low12.0-16.0The [facility] HospitalComment on above:Performed By: #### CVDTBH #### [facility] [address] [address] [address] Sruthi Conklin #0.05 10e3/ulCritically high0.00-0.03The [facility] on above:Performed By: #### CVDTBH #### [facility] [address] [address] [address] Sruthi Conklin %0.5 %Normal0.0-0.5The [facility] CenterComment on above: Performed By: #### CVDTBH #### [facility] [address] [address] [address] Sruthi Serrano #2.4 103/ulNormal1.2-3.8The [facility] CenterComment on above:Performed By: #### CVDTBH #### [facility] [address] [address] [address] Sruthi Tijerinahocytes/100 WBC (Bld)24.5 %Lxgiyp15.5-60.0[facility] HospitalComment on above:Performed By: #### CVDTBH #### [facility] [address] [address] [address] Sruthi ToscanoUAL DIFF REQNONormalThe [facility] CenterComment on above: Performed By: #### CVDTBH #### [facility] [address] [address] [address] Sruthi Brink (RBC) [Entitic mass]26.5 pgCritically low26.7-34.0The [facility] CenterComment on above:Performed By: #### CVDTBH #### [facility] [address] [place] [address] Dr. Sruthi Torres (RBC) [Mass/Vol]31.3 g/hHBfbyfb14.9-35.2The [facility] CenterComment on above:Performed By: #### CVDTBH #### [facility] [address] [place] [address] Dr. Sruthi Torres (RBC) [Entitic vol]84.9 yVIkmsrw13.0-99.0The [facility] CenterComment on above:Performed By: #### CVDTBH #### [facility] [address] [place] [address] Dr. Sruthi Valladares #1.1 103/ulCritically high0.3-0.8The [facility] Comment on above:Performed By: #### MARGITBH #### [facility] [address] [place] [address] Dr. Sruthi Alegriaocytes/100 WBC (Bld)11.7 %Normal1.7-12.0[facility] Comment on above:Performed By: #### CVDTBH #### [facility] [address] [place] [address] Dr. Sruthi Carl #5.8 103/ulNormal1.4-6.5The [facility] CenterComment on above:Performed By: #### CVDTBH #### [facility] [address] [place] [address] Dr. Sruthi Allanophils/100 WBC (Bld)60.5 %Mositd70.0-75.0The [facility] CenterComment on above:Performed By: #### CVDTBH #### [facility] [address] [place] [address] Dr. Sruthi Jaimelet mean volume (Bld) [Entitic vol]11.8 fLNormal9.5-13.5The [facility] CenterComment on above:Performed By: #### CVDTBH #### [facility] [address] [address] [address] Sruthi ArechigaPLT198 103/wuPkhwzf252-016Zio [facility] CenterComment on above: Performed By: #### CVDTBH #### [facility] [address] [address] [address] Sruthi ArechigaRBC3.77 106/ulCritically low4.20-5.40The [facility] CenterComment on above:Performed By: #### CVDTBH #### [facility] [address] [address] [address] Sruthi ArechigaWBC9.7 103/ulNormal4.0-11.0The [facility] CenterCommclaren [place] on above: Performed By: #### CVDTBH #### [facility] [address] [place] [address] Dr. Sruthi Tobin URINEon 08-40-7684LOOBFWU URINEIsolate 1 Klebsiella pneumoniae >100,000 cfu/mL of [...] <=16 S F Trimethoprim/Sulfamethoxazole <=20 S FNormalThe [facility] CenterComment on above:Performed By: #### URCX ####[facility] [address] [address]Dr. Sruthi Alvarenga AND TIBCon 07-06-2022% SATURATION 9.3 %NormalThe [facility] CenterCommclaren [place] on above:Performed By: #### FETIBC, B12FOL ####[facility] [address] [address]Dr. Sruthi Alvarenga [Mass/Vol]33.0 ug/dLCritically low50.0-170.0The [facility] CenterComment on above:Performed By: #### FETIBC, B12FOL ####[facility] [address] [address]Dr. Sruthi ArechigaTIBC CBSNVV391.0 ug/wDXvkmhu902.0-450.0The [facility] CenterComment on above: Performed By: #### FETIBC, B12FOL ####[facility] [address] [address]Dr. Sruthi Gray BLD IMMUNO SCREENon 07-06-2022 OCCULT BLOODNegativeNormalNEGATIVEThe [facility] CenterComment on above: Performed By: #### OBSCRN #### [facility] [address] [place] [address] Dr. Sruthi ArechigaPOINT OF CARE GLUCOSEon 18-38-3161Clormin [Mass/Vol]203 mg/dL Critically tgim45-221SijCleveland Clinic Mentor HospitalComment on above:Performed By: #### CBC #### [facility] [address] [address] [address] Sruthi ArechigaGlucose [Mass/Vol]299 mg/dLCritically tfzk21-869Qbf [facility] CenterComment on above:Performed By: #### CVDTBH #### [facility] [address] [address] [address] Sruthi ArechigaGlucose [Mass/Vol]412 mg/dLCritically fpmp61-260LhtCleveland Clinic Mentor HospitalComment on above:Performed By: #### CBC #### [facility] Laboratory [address] [address] [address] Sruthi ArechigaPROF CHEM 8 (BAS METB)on 34-49-0182Nlxxz gap [Moles/Vol]11.0 mmol/LNormalThe [facility] CenterComment on above:Performed By: #### BMP ####[facility] Hogflemitv[address] [place], [place] [address]Dr. Sruthi ArechigaCalcium [Mass/Vol]9.0 mg/dLNormal8.5-10.1The [facility] CenterComment on above:Performed By: #### BMP ####[facility] Vpxexmizsx[address] [place], [place] [address]Dr.Yilan ChangChloride [Moles/Vol]100 mmol/LNormal 98-107The [facility] CenterComment on above:Performed By: #### BMP ####[facility] Obvunxbzan[address] [place], [place] [address]Dr.Yilan ChangCO2 [Moles/Vol]28.5 mmol/QJfusqv58.0-32.0The [facility] CenterComment on above: Performed By: #### BMP ####[facility] Ptibtdqz[address] [place], [place] [address]Dr.Yilan ChangCreatinine [Mass/Vol]0.98 mg/dLNormal 0.55-1.02The [facility] CenterComment on above:Performed By: #### BMP ####[facility] Rkwgopjzkk[address] [place], [place] [address]Dr. Yilan ChangEGFR-AF GABONESE>60Normal>=60The [facility] CenterComment on above: Performed By: #### BMP ####[facility] Vambxyrlwl[address] [place], [place] [address]Dr.Yilan ChangEGFR-NON AF NOWJLFNO06 mL/min/1.73m2 Critically low>=60The [facility] CenterComment on above:Performed By: #### BMP ####[facility] Qsyyguqwga[address] [place], [place] [address]Dr. Yilan ChangGlucose [Mass/Vol]139 mg/dLCritically bxqw80-174Jrp [facility] Comment on above:Performed By: #### BMP ####[facility] Iiegvdgvvq[address] [place], [place] [address]Dr.Yilan ChangPotassium [Moles/Vol]4.5 mmol/LNormal3.5-5.1The [facility] CenterComment on above:Performed By: #### BMP ####[facility] Uugbwdjxfm[address] [place], [place] [address]Dr. Yilan ChangSodium [Moles/Vol]135 mmol/LCritically nzo840-205Ilh [facility] CenterComment on above:Performed By: #### BMP ####[facility] [address] [address]Dr.Sruthi ArechigaUrea nitrogen [Mass/Vol]25.0 mg/dLCritically high7.0-18.0The [facility] CenterComment on above:Performed By: #### BMP ####[facility] [address] [address]Dr.Sruthi ChangUrea nitrogen/Creatinine [Mass ratio] 25.5 mg/mgNoThe Surgical Hospital at SouthwoodsComment on above:Performed By: #### BMP ####[facility] [address] [address]Dr. Sruthi ArechigaVIT B12 AND FOLATEon 46-83-7822Kqirlwxzu (Vitamin B12) [Mass/Vol] 653.0 pg/pTUksvet104.0-986.0The [facility] CenterComment on above:Performed By: #### FETIBC, B12FOL ####[facility] [address] [address]Dr. Sruthi ArechigaNnqsqNSGEJD51.90 ng/mLNormal8.60-58.90The [facility] Hospitalment on above:Performed By: #### FETIBC, B12FOL ####[facility] [address] [address]Dr. Sruthi ArechigaXR CHEST 2 Von 82-57-7576SG CHEST 2 VEXAM: XR CHEST 2 V [...] Electronically authenticated by: GORDON VALENZUELA Date: 2022-07-06 08:43[facility] AUTO DIFFon [id number] #0.0 103/ulNormal0.0-0.1The [facility]in HospitalComment on above:Performed By: #### CBC ####[facility] Dzyevmudez[address] [place], [place] [address]Dr.Sruthi ChangBasophils/100 WBC (Bld)0.4 %Normal0.2-2.0The [facility] CenterComment on above:Performed By: #### CBC ####[facility] Eocbjnsiow[address] [place], [place] [address]Dr.Yilan ChangEO #0.2 103/ulNormal0.0-0.7The [facility] CenterComment on above:Performed By: #### CBC ####[facility] Saiputjmka49[address] [place], [place] [address]Dr.Kamalalan ChangEosinophils/100 WBC (Bld)2.6 %Normal 0.9-7.0The [facility] CenterComment on above:Performed By: #### CBC ####[facility] Kpajyonmaq[address] [place], [place] [address]Dr.Sruthi Arechiga Erythrocyte distribution width (RBC) [Ratio]13.3 %Ovfcas57.0-15.0The [facility] CenterComment on above:Performed By: #### CBC ####[facility] Meaxayelvi[address] [place], [place] [address]Dr.Sruthi ChangHematocrit (Bld) [Volume fraction]31.3 %Critically low36.0-48.0The [facility] CenterComment on above:Performed By: #### CBC ####[facility] Vqqtrveopr[address] [place], [place] [address]Dr.Sruthi ChangHemoglobin (Bld) [Mass/Vol]9.9 g/dL Critically low12.0-16.0The [facility] CenterComment on above:Performed By: #### CBC ####[facility] Tnvdtkquti[address] [place], [place] [address]Dr. Sruthi ChangIG #0.07 10e3/ulCritically high0.00-0.03The [facility] CenterComment on above:Performed By: #### CBC ####[facility] Hggshnuvxz[address] [place], [place] [address]Dr.Yilan ChangIG %0.8 %Critically high0.0-0.5The [facility]bt[facility] HospitalComment on above:Performed By: #### CBC ####[facility] Fshwrwajmj[address] [place], [place] [address]Dr.Kamalasven CaliEAST[facility] #2.1 103/ulNormal1.2-3.8The [facility]bt[facility] HospitalComment on above:Performed By: #### CBC ####[facility] Acvpjvuzgw[address] [place], [place] [address]Dr. Kamalasven Calihocytes/100 WBC (Bld)22.5 %Hucsrs90.5-60.0The [facility] Comment on above:Performed By: #### CBC ####[facility] Xjobyqrjra[address] [place], [place] [address]Dr.Sruthi ArechigaMANUAL DIFF REQNONormalThe [facility] CenterComment on above:Performed By: #### CBC ####[facility] Gwmiyrxmzp[address] [place], [place] [address]Dr.Sruthi ArechigaNOR[facility]EN[facility] (RBC) [Entitic mass]27.0 zcSnukpg97.7-34.0The [facility] CenterComment on above: Performed By: #### CBC ####[facility] Bqutqxqpxk[address] [place], [place] [address]Dr.Kamalasven ArechigaJOHN R. [facility] (RBC) [Mass/Vol]31.6 g/dLNormal 29.9-35.2[facility] Ment[facility] HospitalComment on above:Performed By: #### CBC ####[facility] Qglvajoatt[address] [place], [place] [address]Dr. Sruthi ArechigaV (RBC) [Entitic vol]85.3 xDMhxodi25.0-99.0The [facility] Comment on above:Performed By: #### CBC ####[facility] Qolufqemty[address] [place], [place] [address]DrJaswinder AlegriaO #1.2 103/ulCritically high0.3-0.8The [facility]bt[facility] HospitalComment on above:Performed By: #### CBC ####[facility] Abzfvwpdsk[address] [place], [place] [address]Dr. Sruthi ChangMonocytes/100 WBC (Bld)12.9 %Critically high1.7-12.0The [facility] CenterComment on above:Performed By: #### CBC ####[facility] [address] [address]Dr.Sruthi ChangNEUT #5.7 103/ulNormal1.4-6.5The [facility] CenterComment on above:Performed By: #### CBC ####[facility] [address] [address]Dr. Kamalalan ChangNeutrophils/100 WBC (Bld)60.8 %Yqjttf71.0-75.0The [facility] Comment on above:Performed By: #### CBC ####[facility] [address] [address]Dr.Sruthi ChangPlatelet mean volume (Bld) [Entitic vol]11.2 fLNormal9.5-13.5The [facility] CenterComment on above: Performed By: #### CBC ####[facility] [address] [address]Dr.Yilan HfkfbGMU841 103/zrExadty060-846Eaa [facility] CenterComment on above:Performed By: #### CBC ####[facility] Qhwkswbggm[address] [place], [place] [address]Dr.Sruthi ChangRBC3.67 106/ul Critically low4.20-5.40The [facility] CenterComment on above:Performed By: #### CBC ####[facility] [address] [address]Dr. Kamalalan ChangWBC9.3 103/ulNormal4.0-11.0The [facility] CenterComment on above: Performed By: #### CBC ####[facility] Nhmiyllaap[address] [place], [place] [address]Dr.Sruthi ChangWELLSTAR [facility] GLUCOSEon 07-05-2022 Glucose [Mass/Vol]164 mg/dLCritically rzhz91-391Pih [facility] CenterComment on above:Performed By: #### CVDTBH #### [facility] Laboratory [address] [place], [place] [address] Dr. Sruthi ArechigaGlucose [Mass/Vol]303 mg/dLCritically kzrt30-759Gdo [facility] CenterComment on above:Performed By: #### POCGLUC #### [facility] [address] [address] [address] Sruthi ArechigaGlucose [Mass/Vol]278 mg/dLCritically nokt09-191Hys [facility] CenterComment on above:Performed By: #### CVDTBH #### [facility] [address] [address] [address] Sruthi ArechigaPROF CHEM 8 (BAS METB)on 36-75-5082Uxnbz gap [Moles/Vol]9.9 mmol/LNormalThe [facility] CenterComment on above:Performed By: #### BMP ####[facility] [address] [address]Dr. Sruthi ChangCalcium [Mass/Vol]8.7 mg/dLNormal8.5-10.1The [facility] CenterComment on above:Performed By: #### BMP ####[facility] [address] [address]Dr.Sruthi ChangChloride [Moles/Vol]100 mmol/LNormal 98-107The [facility] CenterComment on above:Performed By: #### BMP ####[facility] [address] [address]DrJaswinder ChangCO2 [Moles/Vol]28.4 mmol/CSwcbbu39.0-32.0The [facility] CenterComment on above: Performed By: #### BMP ####[facility] [address] [address]Dr.Sruthi ChangCreatinine [Mass/Vol]0.99 mg/dLNormal 0.55-1.02The [facility] CenterComment on above:Performed By: #### BMP ####[facility] [address] [address]Dr. Sruthi ChangEGFR-AF GABONESE>60Normal>=60The [facility] CenterComment on above: Performed By: #### BMP ####[facility] [address] [address]Dr.Sruthi ChangEGFR-NON AF QYVEUIQS29 mL/min/1.73m2 Critically low>=60The [facility] CenterComment on above:Performed By: #### BMP ####[facility] [address] [address]Dr. Sruthi ChangGlucose [Mass/Vol]174 mg/dLCritically tgim14-465Xjf [facility] Comment on above:Performed By: #### BMP ####[facility] [address] [address]Dr.Sruthi ChangPotassium [Moles/Vol]4.3 mmol/LNormal3.5-5.1The [facility] CenterComment on above:Performed By: #### BMP ####[facility] [address] [address]Dr. Sruthi ChangSodium [Moles/Vol]134 mmol/LCritically fsi572-901Nul [facility] CenterComment on above:Performed By: #### BMP ####[facility] [address] [address]Dr.Sruthi ChangUrea nitrogen [Mass/Vol]22.0 mg/dLCritically high7.0-18.0The [facility] CenterComment on above:Performed By: #### BMP ####[facility] [address] [address]Dr.Sruthi ChangUrea nitrogen/Creatinine [Mass ratio] 22.2 mg/mgNormalThe [facility] CenterComment on above:Performed By: #### BMP ####[facility] [address] [address]Dr. Sruthi Sarmiento 46-78-2777Twtxjqndcgc peptide B (Bld) [Mass/Vol]1822.0 pg/mL Critically high<=900.0The [facility] CenterComment on above:Performed By: #### CBC #### [facility] [address] [address] [address] Sruthi Fisher AUTO DIFFon 67-81-8572FEWE #0.0 103/ulNormal0.0-0.1The [facility] CenterComment on above:Performed By: #### CBC #### [facility] [address] [address] [address] Sruthi ArechigaBasophils/100 WBC (Bld)0.4 %Normal0.2-2.0[facility] Comment on above:Performed By: #### CBC #### [facility] [address] [address] [address] Sruthi Shields #0.2 103/ulNormal0.0-0.7The [facility] CenterComment on above: Performed By: #### CBC #### [facility] [address] [place] [address] Dr. Sruthi Joyosinophils/100 WBC (Bld)2.4 %Normal0.9-7.0[facility] Comment on above:Performed By: #### CBC #### [facility] [address] [place] [address] Dr. Sruthi Joyrythrocyte distribution width (RBC) [Ratio]13.5 %Rbbkjc99.0-15.0 The [facility] CenterComment on above:Performed By: #### CBC #### [facility] [address] [place] [address] Dr. Sruthi ArechigaHematocrit (Bld) [Volume fraction]36.4 %Spajir93.0-48.0The [facility] CenterComment on above:Performed By: #### CBC #### [facility] [address] [place] [address] Dr. Sruthi ArechigaHemoglobin (Bld) [Mass/Vol]11.6 g/dLCritically low12.0-16.0The [facility] CenterComment on above:Performed By: #### CBC #### [facility] [address] [place] [address] Dr. Sruthi Conklin #0.11 10e3/ulCritically high0.00-0.03The [facility] Comment on above:Performed By: #### CBC #### [facility] [address] [address] [address] Sruthi Conklin %1.2 %Critically high0.0-0.5The [facility] CenterComment on above:Performed By: #### CBC #### [facility] [address] [address] [address] Sruthi Serrano #1.7 103/ulNormal1.2-3.8The [facility] CenterComment on above:Performed By: #### CBC #### [facility] [address] [address] [address] Sruthi Calihocytes/100 WBC (Bld)19.0 %Critically low20.5-60.0The [facility] CenterComment on above:Performed By: #### CBC #### [facility] [address] [place] [address] Dr. Sruthi ToscanoUAL DIFF REQNONormalThe [facility] CenterComment on above: Performed By: #### CBC #### [facility] [address] [address] [address] Sruthi Torres (RBC) [Entitic mass]27.3 nvXgeaaj45.7-34.0The [facility] CenterComment on above:Performed By: #### CBC #### [facility] [address] [place] [address] Dr. Sruthi Torres (RBC) [Mass/Vol]31.9 g/tJTiwwba84.9-35.2The [facility] CenterComment on above:Performed By: #### CBC #### [facility] [address] [place] [address] Dr. Sruthi Torres (RBC) [Entitic vol]85.6 zYTbvcrt98.0-99.0The [facility] CenterComment on above:Performed By: #### CBC #### [facility] [address] [place] [address] Dr. Sruthi Valladares #1.1 103/ulCritically high0.3-0.8The [facility] Comment on above:Performed By: #### CBC #### [facility] [address] [place] [address] Dr. Sruthi Alegriaocytes/100 WBC (Bld)11.9 %Normal1.7-12.0The [facility] Comment on above:Performed By: #### CBC #### [facility] [address] [place] [address] Dr. Sruthi GomezUT #6.0 103/ulNormal1.4-6.5The [facility] CenterComment on above:Performed By: #### CBC #### [facility] [address] [place] [address] Dr. Sruthi Gomezutrophils/100 WBC (Bld)65.1 %Xbergk33.0-75.0The [facility] CenterComment on above:Performed By: #### CBC #### [facility] [address] [place] [address] Dr. Sruthi Jaimelet mean volume (Bld) [Entitic vol]10.7 fLNormal9.5-13.5The [facility] CenterComment on above:Performed By: #### CBC #### [facility] [address] [place] [address] Dr. Sruthi ArechigaPLT264 103/roBdesep496-179Wmi [facility] CenterComment on above: Performed By: #### CBC #### [facility] [address] [place] [address] Dr. Sruthi ArechigaRBC4.25 106/ulNormal4.20-5.40The [place] [facility] Hospitalment on above:Performed By: #### CBC #### [facility] [address] [place] [address] Dr. Sruthi ArechigaWBC9.2 103/ulNormal4.0-11.0The [place] [facility] Hospitalment on above: Performed By: #### CBC #### [facility] [address] [place] [address] Dr. Sruthi ArechigaCovid-19 PCR (CVDTBH)on 36-04-5635BZDC-CoV-2 (COVID-19) RNA KOLE+probe Ql (Unsp spec)Not detectedNormalNOT DETECTEDCleveland Clinic Mentor Hospital Comment on above:Result Comment: When diagnostic testing [...] for this test is supported by the Home Health Nurse Licensed Practical of Health and Human Service's declaration that [...] no longer be used).Performed By: #### CVDTBH ####[facility] [address] [address]Dr. Sruthi Rodriguez URINE PROFILEon 68-74-7213Avhyeviav Ql (U)NegativeNormal NEGATIVECleveland Clinic Mentor HospitalComment on above:Performed By: #### CVDTBH #### [facility] [address] [place] [address] Dr. Sruthi Varela (U)CLEARNormalCLEARCleveland Clinic Mentor HospitalComment on above: Performed By: #### CVDTBH #### [facility] [address] [place] [address] Dr. Sruthi Tran (U)LT. YELLOWNormalYELLOWCleveland Clinic Mentor HospitalComment on above:Performed By: #### CVDTBH #### [facility] [address] [place] [address] Dr. Sruthi Hidalgo micrscopic examination will be performed if indicated. NormalThe [facility] CenterComment on above:Performed By: #### CVDTBH #### [facility] [address] [place] [address] Dr. Sruthi Leyvaose Ql (U)>1000AbnormalNEGATIVECleveland Clinic Mentor HospitalComment on above:Performed By: #### CVDTBH #### [facility] [address] [address] [address] Sruthi ArechigaHemoglobin Ql (U)NegativeNormalNEGACMC Healthcare System Glen[facility] Comment on above:Performed By: #### CVDTBH #### [facility] [address] [address] [address] Sruthi ArechigaKetones Ql (U)NegativeNormalNEGATIVECleveland Clinic Mentor HospitalComment on above:Performed By: #### CVDTBH #### [facility] [address] [address] [address] Sruthi ArechigaLEUKOCYTESSMALLAbnormalNEGATIVECleveland Clinic Mentor HospitalComment on above:Performed By: #### CVDTBH #### [facility] [address] [place] [address] Dr. Sruthi ArechigaNitrite Ql (U)NegativeNormalNEGATIVECleveland Clinic Mentor HospitalComment on above:Performed By: #### CVDTBH #### [facility] [address] [place] [address] Dr. Sruthi ArechigapH (U)6.0 [pH]Normal5-9[facility] HospitalComment on above: Performed By: #### CVDTBH #### [facility] [address] [place] [address] Dr. Sruthi ArechigaSPEC GRAVITY<=1.962Xcrpnrjm4.005-<=1.025[facility] Comment on above:Performed By: #### CVDTBH #### [facility] [address] [place] [address] Dr. Sruthi Whitehead PROTEINNegativeNormalNEGATIVE/ TRACECleveland Clinic Mentor Hospital Comment on above:Performed By: #### CVDTBH #### [facility] [address] [place] [address] Dr. Sruthi Adamson MICRO INDINDICATEDNoalThDayton Children's HospitalComment on above: Performed By: #### CVDTBH #### [facility] [address] [place] [address] Dr. Yilan ChangUrobilinogen Qn (U)0.2 {Willow'U}/dLNormal0.2 - 1.0The [facility] CenterComment on above:Performed By: #### CVDTBH #### [facility] [address] [address] [address] Sruthi ArechigaPOINT OF CARE GLUCOSEon 86-71-5187Whpoyus [Mass/Vol]262 mg/dL Critically ocej83-838Nyq [facility] CenterComment on above:Performed By: #### POCGLUC ####[facility] [address] [address]Dr. Sruthi ArechigaPROF CHEM 8 (BAS METB)on 17-60-2687Cqign gap [Moles/Vol]13.0 mmol/LNormalThe [facility] CenterComment on above:Performed By: #### CBC #### [facility] [address] [address] [address] Sruthi ArechigaCalcium [Mass/Vol]9.3 mg/dLNormal8.5-10.1The [facility] Comment on above:Performed By: #### CBC #### [facility] [address] [address] [address] Sruthi ArechigaChloride [Moles/Vol]99 mmol/ORqyjbg16-313Ofz [facility] Comment on above:Performed By: #### CBC #### [facility] [address] [address] [address] Sruthi ArechigaCO2 [Moles/Vol]26.3 mmol/IKxmhdw47.0-32.0The [facility] Comment on above:Performed By: #### CBC #### [facility] [address] [address] [address] Sruthi ArechigaCreatinine [Mass/Vol]0.95 mg/dLNormal0.55-1.02The [facility] CenterComment on above:Performed By: #### CBC #### [facility] [address] [address] [address] Negro ChangEGFR-AF GABONESE>60Normal>=60The [facility] CenterComment on above:Performed By: #### CBC #### [facility] [address] [address] [address] Sruthi JoyGFR-NON AF QQXGVDGA31 mL/min/1.48a8Xocbtvkfpj low>=60The [facility] on above:Performed By: #### CBC #### [facility] [address] [address] [address] Sruthi ArechigaGlucose [Mass/Vol]331 mg/dLCritically twqm75-330Bnd [facility] on above:Performed By: #### CBC #### [facility] [address] [address] [address] Sruthi ArechigaPotassium [Moles/Vol]4.3 mmol/LNormal3.5-5.1The [facility] Comment on above:Performed By: #### CBC #### [facility] [address] [address] [address] Sruthi ArechigaSodium [Moles/Vol]134 mmol/LCritically eei133-387Tqi [facility] on above:Performed By: #### CBC #### [facility] [address] [address] [address] Sruthi ArechigaUrea nitrogen [Mass/Vol]20.0 mg/dLCritically high7.0-18.0The [facility] on above:Performed By: #### CBC #### [facility] [address] [address] [address] Sruthi ArechigaUrea nitrogen/Creatinine [Mass ratio]21.1 mg/mgNormalThe [facility] CenterComment on above:Performed By: #### CBC #### [facility] [address] [address] [address] Sruthi Tucker, HIGH SENSITIVITYon 71-91-8552OQNSRM385.1 pg/mL Critically high4.0-51.3The [facility] on above:Result Comment: CUT-OFF POINTS HAVE BEEN ESTABLISHED BASED ON THE FOURTH UNIVERSAL DEFINITIONS OF MYOCARDIAL INFARCTION. THE UPPER REFERENCE LIMIT (URL) OF TROPONIN, DEFINED THE 99TH PERCENTILE OF cTnI DISTRIBUTION IN A REFERENCE POPULATION, HAS BEEN CONFIRMED THE DECISION THRESHOLD FOR LA DIAGNOSIS.Performed By: #### CBC #### [facility] [address] [place] [address] Dr. Sruthi Garrido126.6 pg/mLCritically high4.0-51.3The [facility] Comment on above:Result Comment: CUT-OFF POINTS HAVE BEEN ESTABLISHED BASED ON THE FOURTH UNIVERSAL DEFINITIONS OF MYOCARDIAL INFARCTION. THE UPPER REFERENCE LIMIT (URL) OF TROPONIN, DEFINED THE 99TH PERCENTILE OF cTnI DISTRIBUTION IN A REFERENCE POPULATION, HAS BEEN CONFIRMED THE DECISION THRESHOLD FOR LA DIAGNOSIS.Performed By: #### CVDTBH #### [facility] [address] [place] [address] Dr. Sruthi Antunez [id number]dvCRER SEEN [facility] [place] on above:Performed By: #### CVDTBH #### [facility] [address] [place] [address] Dr. Sruthi Walls identified Cx Nom (U)INDICATEDMemorial Health System Selby General HospitalComment on above:Performed By: #### CVDTBH #### [facility] [address] [place] [address] Dr. Sruthi Olmos SEENNormalNONE SEENCleveland Clinic Mentor HospitalCommclaren [place] on above:Performed By: #### CVDTBH #### [facility] [address] [place] [address] Dr. Sruthi Brown LM Nom (Urine sed)NONE SEENNormalNONE SEENCleveland Clinic [facility] HospitalCommclaren [place] on above:Performed By: #### CVDTBH #### [facility] [address] [place] [address] Dr. Negro ChangEpithelial cells LM Ql (Urine sed)FEWAbnormalNONE SEEN /RAREThe [facility] CenterCommclaren [place] on above:Performed By: #### CVDTBH #### [facility] [address] [place] [address] Dr. Sruthi Jernigan SEENNocount includes the [facility]NONE SEENPro[facility] on above:Performed By: #### CVDTBH #### [facility] [address] [address] [address] Sruthi ArechigaRBCNJEAN SEENAbnormal0-2The [facility] CenterComment on above: Performed By: #### CVDTBH #### [facility] [address] [address] [address] Sruthi ArechigaQgwpeMPO85-51ZvcnhwbaCLFB SEENThe [facility] CenterComment on above: Performed By: #### CVDTBH #### [facility] [address] [place] [address] Dr. Sruthi rAechigaXR CHEST 1 Von [id number] CHEST 1 VEXAMINATION: XR CHEST 1 V [...] Electronically authenticated by: GERMAIN COY Date: 2022-07-04 11:53[facility] COMPLETE BLOOD COUNTon 70-95-6184Aqcfadzbgmr distribution width (RBC) [Ratio]13.4 %Nnypoc87.5-15.0The [facility] Comment on above:Order Comment: No: Do not add to previous drawPerformed By: #### [id number] #### [facility] [address] [place] [address], USAHematocrit (Bld) [Volume fraction]33.6 %Low36.0-45.0The [facility] InstituteComment on above:Order Comment: No: Do not add to previous drawPerformed By: #### 53381 #### [facility] [address] [place] [address], USAHemoglobin (Bld) [Mass/Vol]10.6 g/dLLow12.0-15.0The [facility] InstituteComment on above:Order Comment: No: Do not add to previous drawPerformed By: #### 34782 #### [facility] [address] [place] [address], [facility] (RBC) [Entitic mass]26.6 pgLow27.0-33.0The [facility] InstituteComment on above:Order Comment: No: Do not add to previous drawPerformed By: #### 70210 #### [facility] [address] [place] [address], [facility] CITYHC (RBC) [Mass/Vol]31.5 g/dLLow32.0-35.0The [facility] InstituteComment on above:Order Comment: No: Do not add to previous drawPerformed By: #### 41830 #### [facility] [address] [place] [address], [facility] CITYV (RBC) [Entitic vol]84.4 bAPxilno09.0-98.0The [facility] InstituteComment on above:Order Comment: No: Do not add to previous drawPerformed By: #### 54872 #### [facility] [address] [place] [address], USANucleated RBC/100 WBC (Bld) [Ratio]0 %Normal0-0The [facility] InstituteComment on above:Order Comment: No: Do not add to previous drawPerformed By: #### 53687 #### [facility] [address] [place] [address], USAPLAT FHF659 10*3/qYKnbvww534-968Gba [facility] InstituteComment on above:Order Comment: No: Do not add to previous draw Performed By: #### 55052 #### [facility] [address] [place] [address], [facility] HOSPITALRBC (Bld) [#/Vol]3.98 10*6/uLNormal3.80-5.00The [facility] InstituteComment on above:Order Comment: No: Do not add to previous drawPerformed By: #### 27931 #### [facility] [address] [place] [address], USAWBC (Bld) [#/Vol]10.25 10*3/uLNormal4.00-10.60The [facility] InstituteComment on above:Order Comment: No: Do not add to previous drawPerformed By: #### 54807 #### [facility] [address] [place] [address], USAPOC GLUCOSE LABon 86-92-9178Xrmlcrf [Mass/Vol]204 mg/dLHigh 70-100The [facility] InstituteComment on above:Performed By: #### 88352, 62999, 19104 #### [facility] [address] [place] [address], USAGlucose [Mass/Vol]135 mg/jUEpft62-210Qfb [facility] InstituteComment on above:Performed By: #### 98750 #### [facility] [address] [address], USAUFH HEPARIN ASSAYon 49-43-8810YOSBESBXEZOEHE HEPARIN<0.10 Critically low0.30-0.70The [facility] InstituteComment on above: Result Comment: Result checked and called. Accurately read back by Chanda @0737 Rivaroxaban and Apixaban will interfere with the anti Xa assay used to monitor UFH and LMWH.Performed By: #### 88699 #### [facility] [address] [address], USABASIC METABOLIC PANELon 38-67-7934Qxplwwn [Mass/Vol]8.8 mg/dLNormal8.6-10.3The [facility] InstituteComment on above:Order Comment: No: Do not add to previous drawPerformed By: #### 04524 #### [facility] [address] [place] [address], USAChloride [Moles/Vol]104 mmol/ATzltwc06-411Fix [facility] InstituteComment on above:Order Comment: No: Do not add to previous drawPerformed By: #### 63814 #### [facility] [address] [place] [address], USACO2 [Moles/Vol]26 mmol/DDmcmqw83-98Ffz [facility] InstituteComment on above:Order Comment: No: Do not add to previous draw Performed By: #### 49885 #### [facility] [address] [place] [address], USACreatinine [Mass/Vol]0.62 mg/dLNormal0.60-1.20The [facility] InstituteComment on above:Order Comment: No: Do not add to previous drawPerformed By: #### 35729 #### [facility] [address] [place] [address], USAGFR/1.73 sq M.predicted among non-blacks MDRD (S/P/Bld) [Vol rate/Area]mL/min/{1.73_m2}Normal>60The [facility] Comment on above:Order Comment: No: Do not add to previous drawResult Comment: The [facility]'s estimated glomerular filtration rate (eGFR) will no [...] any one group of individuals.Performed By: #### 03737 #### [facility] [address] [place] [address], USAGlucose [Mass/Vol]212 mg/sDIvts11-926Nta [facility] InstituteComment on above:Order Comment: No: Do not add to previous drawPerformed By: #### 33553 #### [facility] [address] [place] [id number], USAPotassium [Moles/Vol]3.8 mmol/LNormal3.5-5.1The [facility] InstituteComment on above:Order Comment: No: Do not add to previous drawPerformed By: #### 10036 #### [facility] [address] [place] [address], USASodium [Moles/Vol]134 mmol/OMzq075-075Nst [facility] InstituteComment on above:Order Comment: No: Do not add to previous drawPerformed By: #### 95446 #### [facility] [address] [place] [address], USAUrea nitrogen [Mass/Vol]15 mg/dLNormal7-25The [facility] InstituteComment on above:Order Comment: No: Do not add to previous drawPerformed By: #### 03968 #### [facility] [address] [address], [facility] HOSPITALCBC W/DIFFon [id number] IMM GRANS0.1 10*3/uLNormal 0.0-0.2The [facility] InstituteComment on above:Order Comment: No: Do not add to previous drawPerformed By: #### 25531 #### [facility] [address] [place] [id number], USAABS NEUTROPHILS6.3 10*3/uLNormal1.6-7.6The [facility] InstituteComment on above:Order Comment: No: Do not add to previous drawPerformed By: #### 10891 #### [facility] [address] [address], USABasophils (Bld) [#/Vol]0.0 10*3/uLNormal0.0-0.2The [facility] InstituteComment on above:Order Comment: No: Do not add to previous drawPerformed By: #### 85030 #### [facility] [address] [place] [address], USABasophils/100 WBC (Bld)0.3 %Normal0.0-1.0The [facility] InstituteComment on above:Order Comment: No: Do not add to previous drawPerformed By: #### 69677 #### [facility] [address] [address], USAEosinophils (Bld) [#/Vol]0.2 10*3/uLNormal0.0-0.5The [facility] InstituteComment on above:Order Comment: No: Do not add to previous drawPerformed By: #### 87831 #### [facility] [address] [place] [address], USAEosinophils/100 WBC (Bld)2.3 %Normal0.0-6.0The [facility] InstituteComment on above:Order Comment: No: Do not add to previous drawPerformed By: #### 93007 #### [facility] [address] [facility] [place] [address], USAErythrocyte distribution width (RBC) [Ratio]13.5 %Normal 11.5-15.0The [facility] InstituteComment on above:Order Comment: No: Do not add to previous drawPerformed By: #### 59368 #### [facility] [address] [facility] [place] [address], USAHematocrit (Bld) [Volume fraction]31.3 %Low36.0-45.0The [facility] InstituteComment on above:Order Comment: No: Do not add to previous drawPerformed By: #### 78383 #### [facility] [address] [facility] [place] [address], USAHemoglobin (Bld) [Mass/Vol]10.2 g/dLLow12.0-15.0The [facility] InstituteComment on above:Order Comment: No: Do not add to previous drawPerformed By: #### 77624 #### [facility] [address] [place] [address], USAIMMATURE GRANS0.8 %Normal0.0-1.0The [facility] InstituteComment on above:Order Comment: No: Do not add to previous draw Performed By: #### 03464 #### [facility] [address] [place] [address], USALymphocytes (Bld) [#/Vol]1.9 10*3/uLNormal1.2-4.0The [facility] InstituteComment on above:Order Comment: No: Do not add to previous drawPerformed By: #### 42792 #### [facility] [address] [place] [address], USALymphocytes/100 WBC (Bld)19.4 %Low20.0-45.0The [facility] InstituteComment on above:Order Comment: No: Do not add to previous drawPerformed By: #### 88930 #### [facility] [address] [address], [facility] (RBC) [Entitic mass]27.5 inUlhahw54.0-33.0The [facility] InstituteComment on above:Order Comment: No: Do not add to previous drawPerformed By: #### 28252 #### [facility] [address] [address], [facility] CITYHC (RBC) [Mass/Vol]32.6 g/vXSxnhnf77.0-35.0The [facility] InstituteComment on above:Order Comment: No: Do not add to previous drawPerformed By: #### 94033 #### [facility] [address] [place] [address], USAMCV (RBC) [Entitic vol]84.4 fJBvmcnc89.0-98.0The [facility] InstituteComment on above:Order Comment: No: Do not add to previous drawPerformed By: #### 53869 #### [facility] [address] [place] [address], USAMonocytes (Bld) [#/Vol]1.3 10*3/uLHigh0.1-1.0The [facility] InstituteComment on above:Order Comment: No: Do not add to previous drawPerformed By: #### 80266 #### [facility] [address] [place] [address], CKVAQNEL24.1 %High5.0-12.0The [facility] InstituteComment on above:Order Comment: No: Do not add to previous drawPerformed By: #### 10051 #### [facility] [address] [place] [address], USANeutrophils/100 WBC (Bld)64.1 %Xdywzd64.0-72.0The [facility] InstituteComment on above:Order Comment: No: Do not add to previous drawPerformed By: #### 54035 #### [facility] [address] [place] [address], USANucleated RBC/100 WBC (Bld) [Ratio]0 %Normal0-0The [facility] InstituteComment on above:Order Comment: No: Do not add to previous drawPerformed By: #### 85911 #### [facility] [address] [place] [address], USAPLAT RIM140 10*3/cIJxehfu191-923Jpx [facility] InstituteComment on above:Order Comment: No: Do not add to previous draw Performed By: #### 80805 #### [facility] [address] [facility] [place] [address], USARBC (Bld) [#/Vol]3.71 10*6/uLLow3.80-5.00The [facility] InstituteComment on above:Order Comment: No: Do not add to previous drawPerformed By: #### 64852 #### [facility] [address] [place] [address], USAWBC (Bld) [#/Vol]9.85 10*3/uLNormal4.00-10.60The [facility] InstituteComment on above:Order Comment: No: Do not add to previous drawPerformed By: #### 53238 #### [facility] [address] [place] [address], USACTA ABDOMEN AND PELVISon [id number] ABDOMEN AND PELVIS [facility] Department of Radiology [address] [place] [address] [id number] Patient Name: DIANN PATEL : 1955 Sex: F Age: Race: White Pt. Location: [id number] Patient Status: D Ordered Date: 07/02/2022 8:20:00 [...] achievable Electronically signed: Robinson Zhu. Transcribed by: [email or web address], User Resident: Electronically Signed by: ROBINSON ZHU @ 07/12/2022 01:12 [facility] CenterComment on above:Order Comment: No: Do not add to previous draw No collection time noted on specimen or requisition. The collection time recorded is the time of receipt in the lab.CTA CHESTon [id number] CHEST [facility] Department of Radiology [address] [place] [id number] Patient Name: DIANN PATEL : 1955 Sex: F Age: Race: White Pt. 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 Electronically signed: Robinson Zhu. Transcribed by: [email or web address], User Resident: Electronically Signed by: ROBINSON ZHU @ 07/12/2022 01:06 [facility] CenterComment on above:Order Comment: No: Do not add to previous draw No collection time noted on specimen or requisition. The collection time recorded is the time of receipt in the lab.Cardiovascular Lab Reporton [id number] Lab ReportUnAdams County Regional Medical Center Patient Name: [facility] Josep MR #: [id number] Department of Physician: Alex Kelly M.D. Division of Service Date: 07/01/2022 Cardiology Birthdate: 1955 Adult Cardiovascular Room #: 4AB [id number] [place] [address] Cardiovascular Laboratory Report CLINICAL PRESENTATION: The patient [...] ultrasound guidance and micropuncture access technique, a 6-Swazi sheath was placed in right common femoral [...] exchanges were made over the J-tip guidewire, 6-Swazi JL4 was used to engage the left main coronary artery. A 6-Swazi JR4 was used to engage the right coronary artery. A 6-Swazi JR4 was used to engage the radial bypass graft to the D1 and the SVG to the OM2. The 6-Swazi JR4 was also used to engage the [...] Betts M.D. Date Trans: 07/02/2022 10:08 A/abdiaziz DN_JN:[id number] cc: Champ Bell M.D. 3 [facility] [address]JydndrHzmAccess Hospital DaytonMAGNESIUM BLOODon [id number] [Mass/Vol]1.9 mg/dLNormal1.9-2.7The [facility] InstituteComment on above:Order Comment: No: Do not add to previous draw Performed By: #### 90540 #### [facility] [address] [place] [address], USAPOC GLUCOSE LABon [id number] [Mass/Vol]268 mg/dLHigh 70-100The [facility] InstituteComment on above:Performed By: #### 13774 #### [facility] [address] [place] [address], USAGlucose [Mass/Vol]255 mg/nQWlom32-640Mkl [facility] InstituteComment on above:Performed By: #### 09095 #### [facility] [address] [place] [address], USAGlucose [Mass/Vol]173 mg/jHMaqz10-699Sez [facility] InstituteComment on above:Performed By: #### 46891 #### [facility] [address] [place] [address], USAGlucose [Mass/Vol]193 mg/oYZxeg03-364Dur [facility] InstituteComment on above:Performed By: #### 78812, 89528, 22912 #### [facility] [address] [place] [address], USAGlucose [Mass/Vol]185 mg/cWMvoj80-216Oqp [facility] InstituteComment on above:Performed By: #### 63070, 33310, 94995 #### [facility] [address] [place] [address], USAUFH HEPARIN ASSAYon 75-30-9010CLSCWCBBKVQSTF HEPARIN<0.10 Critically low0.30-0.70The [facility] InstituteComment on above: Result Comment: RESULTS CHECKED AND CALLED. ACCURATELY READ BACK BY Jessa Schaefer RN at 2200 PMW 07-02-22. Rivaroxaban and Apixaban will interfere with the anti Xa assay used to monitor UFH and LMWH.Performed By: #### 09203 #### [facility] [address] [place] [address], USABASIC METABOLIC PANELon [id number] [Mass/Vol]8.5 mg/dLLow8.6-10.3The [facility] InstituteComment on above:Order Comment: No: Do not add to previous drawPerformed By: #### 21541, 56519 #### [facility] [address] [place] [address], USAChloride [Moles/Vol]105 mmol/HGgapfq79-576Xdk [facility] InstituteComment on above:Order Comment: No: Do not add to previous drawPerformed By: #### 39208, 39880 #### [facility] [address] [place] [address], USACO2 [Moles/Vol]22 mmol/GHbmbmc69-22Dir [facility] InstituteComment on above:Order Comment: No: Do not add to previous draw Performed By: #### 37744, 11258 #### [facility] [address] [place] [address], USACreatinine [Mass/Vol]0.57 mg/dLLow0.60-1.20The [facility] InstituteComment on above:Order Comment: No: Do not add to previous drawPerformed By: #### 06466, 19783 #### [facility] [address] [place] [address], USAGFR/1.73 sq M.predicted among non-blacks MDRD (S/P/Bld) [Vol rate/Area]mL/min/{1.73_m2}Normal>60The [facility] Comment on above:Order Comment: No: Do not add to previous drawResult Comment: [facility]'s estimated glomerular filtration rate (eGFR) will no [...] any one group of individuals.Performed By: #### 93128, 58256 #### [facility] [address] [place] [address], USAGlucose [Mass/Vol]164 mg/gWIwsg96-555Sgs [facility] InstituteComment on above:Order Comment: No: Do not add to previous drawPerformed By: #### 00028, 39640 #### [facility] [address] [place] [address], USAPotassium [Moles/Vol]3.8 mmol/LNormal3.5-5.1The [facility] InstituteComment on above:Order Comment: No: Do not add to previous drawPerformed By: #### 57457, 85951 #### [facility] [address] [address], USASodium [Moles/Vol]137 mmol/JNetdiz113-754Sxs [facility] InstituteComment on above:Order Comment: No: Do not add to previous drawPerformed By: #### 29780, 72917 #### [facility] [address] [facility] [place] [address], USAUrea nitrogen [Mass/Vol]18 mg/dLNormal7-25The [facility] InstituteComment on above:Order Comment: No: Do not add to previous drawPerformed By: #### 98160, 40096 #### [facility] [address] [facility] [place] [address], [facility] HOSPITALCBC W/DIFFon [id number] IMM GRANS0.1 10*3/uLNormal 0.0-0.2The [facility] InstituteComment on above:Order Comment: No: Do not add to previous drawPerformed By: #### 36743 #### [facility] [address] [facility] [place] [address], USAABS NEUTROPHILS5.1 10*3/uLNormal1.6-7.6The [facility] InstituteComment on above:Order Comment: No: Do not add to previous drawPerformed By: #### 63645 #### [facility] [address] [facility] [place] [address], USABasophils (Bld) [#/Vol]0.1 10*3/uLNormal0.0-0.2The [facility] InstituteComment on above:Order Comment: No: Do not add to previous drawPerformed By: #### [id number] #### [facility] [address] [place] [address], USABasophils/100 WBC (Bld)0.6 %Normal0.0-1.0The [facility] InstituteComment on above:Order Comment: No: Do not add to previous drawPerformed By: #### [id number] #### [facility] [address] [address], USAEosinophils (Bld) [#/Vol]0.3 10*3/uLNormal0.0-0.5The [facility] InstituteComment on above:Order Comment: No: Do not add to previous drawPerformed By: #### [id number] #### [facility] [address] [address], USAEosinophils/100 WBC (Bld)2.8 %Normal0.0-6.0The [facility] InstituteComment on above:Order Comment: No: Do not add to previous drawPerformed By: #### [id number] #### [facility] [address] [facility] [place] [address], USAErythrocyte distribution width (RBC) [Ratio]13.3 %Normal 11.5-15.0The [facility] InstituteComment on above:Order Comment: No: Do not add to previous drawPerformed By: #### [id number] #### [facility] [address] [facility] [place] [address], USAHematocrit (Bld) [Volume fraction]32.6 %Low36.0-45.0The [facility] InstituteComment on above:Order Comment: No: Do not add to previous drawPerformed By: #### [id number] #### [facility] [address] [facility] [address], USAHemoglobin (Bld) [Mass/Vol]10.6 g/dLLow12.0-15.0The [facility] InstituteComment on above:Order Comment: No: Do not add to previous drawPerformed By: #### [id number] #### [facility] [address] [place] [address], USAIMMATURE GRANS0.7 %Normal0.0-1.0The [facility] Health InstituteComment on above:Order Comment: No: Do not add to previous draw Performed By: #### [id number] #### [facility] [address] [place] [address], USALymphocytes (Bld) [#/Vol]2.4 10*3/uLNormal1.2-4.0The [facility] InstituteComment on above:Order Comment: No: Do not add to previous drawPerformed By: #### [id number] #### [facility] [address] [place] [address], USALymphocytes/100 WBC (Bld)26.6 %Hyfzwb00.0-45.0The [facility] InstituteComment on above:Order Comment: No: Do not add to previous drawPerformed By: #### [id number] #### [facility] [address] [place] [address], [facility] CITYH (RBC) [Entitic mass]27.0 asJvcagf52.0-33.0The [facility] InstituteComment on above:Order Comment: No: Do not add to previous drawPerformed By: #### [id number] #### [facility] [address] [place] [address], [facility]ITALMCHC (RBC) [Mass/Vol]32.5 g/iVOjnjyw19.0-35.0The [facility] InstituteComment on above:Order Comment: No: Do not add to previous drawPerformed By: #### [id number] #### [facility] [address] [place] [address], [facility]OSPITALMCV (RBC) [Entitic vol]83.0 vFGrkuvi49.0-98.0The [facility] InstituteComment on above:Order Comment: No: Do not add to previous drawPerformed By: #### [id number] #### [facility] [address] [place] [address], USAMonocytes (Bld) [#/Vol]1.2 10*3/uLHigh0.1-1.0The [facility] InstituteComment on above:Order Comment: No: Do not add to previous drawPerformed By: #### [id number] #### [facility] [address] [place] [address], WSHZOOFH23.0 %High5.0-12.0The [facility] InstituteComment on above:Order Comment: No: Do not add to previous drawPerformed By: #### [id number] #### [facility] [address] [place] [address], USANeutrophils/100 WBC (Bld)56.3 %Pditnu59.0-72.0The [facility] Health InstituteComment on above:Order Comment: No: Do not add to previous drawPerformed By: #### [id number] #### [facility] [address] [place] [address], USANucleated RBC/100 WBC (Bld) [Ratio]0 %Normal0-0The [facility] Health InstituteComment on above:Order Comment: No: Do not add to previous drawPerformed By: #### [id number] #### [facility] [address] [place] [address], USAPLAT [id number] 10*3/wWSkbtuk976-536Cbf [facility] InstituteComment on above:Order Comment: No: Do not add to previous draw Performed By: #### 81527 #### [facility] [address] [place] [address], USARBC (Bld) [#/Vol]3.93 10*6/uLNormal3.80-5.00The [facility] InstituteComment on above:Order Comment: No: Do not add to previous drawPerformed By: #### [id number] #### [facility] [address] [place] [address], USAWBC (Bld) [#/Vol]9.05 10*3/uLNormal4.00-10.60The [facility] InstituteComment on above:Order Comment: No: Do not add to previous drawPerformed By: #### [id number] #### [facility] [address] [place] [address], USAMAGNESIUM BLOODon 64-57-1240Mnupmegee [Mass/Vol]1.7 mg/dL Low1.9-2.7The [facility] InstituteComment on above:Order Comment: No: Do not add to previous drawPerformed By: #### 00977, 73814 #### [facility] [address] [place] [address], USAPOC GLUCOSE LABon 59-10-6687Tvchfgs [Mass/Vol]253 mg/dLHigh 70-100The [facility] InstituteComment on above:Performed By: #### 85587 #### [facility] [address] [place] [address], USAGlucose [Mass/Vol]160 mg/qOQbzx76-012Ffo [facility] InstituteComment on above:Performed By: #### [id number] #### [facility] [address] [place] [address], USAGlucose [Mass/Vol]174 mg/gDFggp18-644Ais [facility] InstituteComment on above:Performed By: #### 82652 #### [facility] [address] [place] [address], USAGlucose [Mass/Vol]185 mg/kXFrwh05-438Hnj [facility] InstituteComment on above:Performed By: #### 96049 #### [facility] [address] [place] [address], USAGlucose [Mass/Vol]176 mg/bORujy86-105Sde [facility] InstituteComment on above:Performed By: #### 88364 #### [facility] [address] [place] [address], USAUFH HEPARIN ASSAYon 34-13-5634PYPOBUWIGHOMMV HEPARIN0.88 IU/mLHigh0.30-0.70The [facility] Health InstituteComment on above:Result Comment: Rivaroxaban and Apixaban will interfere with the anti Xa assay used to monitor UFH and LMWH.Performed By: #### 12915 #### [facility] [address] [place] [address], USABASIC METABOLIC PANELon 16-60-5221Obqlqrh [Mass/Vol]8.5 mg/dLLow8.6-10.3The [facility] InstituteComment on above:Order Comment: No: Do not add to previous drawPerformed By: #### 91490, 15806, 07318 #### [facility] [address] [place] [address], USAChloride [Moles/Vol]103 mmol/JAxclbz58-095Rcy [facility] InstituteComment on above:Order Comment: No: Do not add to previous drawPerformed By: #### 47768, 44512, 44864 #### [facility] [address] [place] [address], USACO2 [Moles/Vol]25 mmol/TUwuibr07-33Lap [facility] InstituteComment on above:Order Comment: No: Do not add to previous draw Performed By: #### 49364, 33344, 85707 #### [facility] [address] [place] [address], USACreatinine [Mass/Vol]0.50 mg/dLLow0.60-1.20The [facility] InstituteComment on above:Order Comment: No: Do not add to previous drawPerformed By: #### 88901, 34275, 62824 #### [facility] [address] [address], USAGFR/1.73 sq M.predicted among non-blacks MDRD (S/P/Bld) [Vol rate/Area]mL/min/{1.73_m2}Normal>60The [facility] Comment on above:Order Comment: No: Do not add to previous drawResult Comment: The [facility]'s estimated glomerular filtration rate (eGFR) will no [...] any one group of individuals.Performed By: #### 52716, 20020, 62181 #### [facility] [address] [facility] [place] [address], USAGlucose [Mass/Vol]166 mg/mXHszp68-809Gka [facility] InstituteComment on above:Order Comment: No: Do not add to previous drawPerformed By: #### 92349, 46706, 67102 #### [facility] [address] [facility] [place] [address], USAPotassium [Moles/Vol]3.3 mmol/LLow3.5-5.1The [facility] InstituteComment on above:Order Comment: No: Do not add to previous drawPerformed By: #### 33474, 77495, 60973 #### [facility] [address] [place] [address], USASodium [Moles/Vol]138 mmol/QWjsjln967-336Bls [facility] InstituteComment on above:Order Comment: No: Do not add to previous drawPerformed By: #### 17014, 28217, 88154 #### [facility] [address] [facility] [place] [address], USAUrea nitrogen [Mass/Vol]17 mg/dLNormal7-25The [facility] InstituteComment on above:Order Comment: No: Do not add to previous drawPerformed By: #### 41891, 99639, 34361 #### [facility] [address] [facility] [place] [address], USACBC W/DIFFon 65-41-6584IMG IMM GRANS0.1 10*3/uLNormal 0.0-0.2The [facility] InstituteComment on above:Order Comment: No: Do not add to previous draw No collection time noted on specimen or requisition. The collection time recorded is the time of receipt in the lab.Performed By: #### 81643 #### [facility] [address] [facility] [place] [address], USAABS NEUTROPHILS4.4 10*3/uLNormal1.6-7.6The [facility] InstituteComment on above:Order Comment: No: Do not add to previous draw No collection time noted on specimen or requisition. The collection time recorded is the time of receipt in the lab.Performed By: #### 84749 #### [facility] [address] [facility] [place] [address], [facility] HOSPITALBasophils (Bld) [#/Vol]0.1 10*3/uLNormal0.0-0.2The [facility] InstituteComment on above:Order Comment: No: Do not add to previous draw No collection time noted on specimen or requisition. The collection time recorded is the time of receipt in the lab.Performed By: #### 83349 #### [facility] [address] [facility] [place] [address], [facility] HOSPITALBasophils/100 WBC (Bld)0.6 %Normal0.0-1.0The [facility] InstituteComment on above:Order Comment: No: Do not add to previous draw No collection time noted on specimen or requisition. The collection time recorded is the time of receipt in the lab.Performed By: #### [id number] #### [facility] [address] [facility] [place] [address], [facility] HOSPITALEosinophils (Bld) [#/Vol]0.3 10*3/uLNormal0.0-0.5The [facility] InstituteComment on above:Order Comment: No: Do not add to previous draw No collection time noted on specimen or requisition. The collection time recorded is the time of receipt in the lab.Performed By: #### 37419 #### [facility] [address] [place] [address], USAEosinophils/100 WBC (Bld)3.3 %Normal0.0-6.0The [facility] InstituteComment on above:Order Comment: No: Do not add to previous draw No collection time noted on specimen or requisition. The collection time recorded is the time of receipt in the lab.Performed By: #### 93190 #### [facility] [address] [place] [address], USAErythrocyte distribution width (RBC) [Ratio]13.2 %Normal 11.5-15.0The [facility] InstituteComment on above:Order Comment: No: Do not add to previous draw No collection time noted on specimen or requisition. The collection time recorded is the time of receipt in the lab.Performed By: #### 15420 #### [facility] [address] [place] [address], USAHematocrit (Bld) [Volume fraction]35.3 %Low36.0-45.0The [facility] Health InstituteComment on above:Order Comment: No: Do not add to previous draw No collection time noted on specimen or requisition. The collection time recorded is the time of receipt in the lab.Performed By: #### 44285 #### [facility] [address] [place] [address], USAHemoglobin (Bld) [Mass/Vol]11.2 g/dLLow12.0-15.0The [facility] InstituteComment on above:Order Comment: No: Do not add to previous draw No collection time noted on specimen or requisition. The collection time recorded is the time of receipt in the lab.Performed By: #### 91065 #### [facility] [address] [facility] [place] [address], USAIMMATURE GRANS0.7 %Normal0.0-1.0The [facility] InstituteComment on above:Order Comment: No: Do not add to previous draw No collection time noted on specimen or requisition. The collection time recorded is the time of receipt in the lab.Performed By: #### 28998 #### [facility] [address] [facility] [place] [address], USALymphocytes (Bld) [#/Vol]2.3 10*3/uLNormal1.2-4.0The [facility] InstituteComment on above:Order Comment: No: Do not add to previous draw No collection time noted on specimen or requisition. The collection time recorded is the time of receipt in the lab.Performed By: #### 32736 #### [facility] [address] [facility] [place] [address], USALymphocytes/100 WBC (Bld)28.1 %Aihfhb51.0-45.0The [facility] InstituteComment on above:Order Comment: No: Do not add to previous draw No collection time noted on specimen or requisition. The collection time recorded is the time of receipt in the lab.Performed By: #### 91192 #### [facility] [address] [facility] [place] [address], USAMCH (RBC) [Entitic mass]26.3 pgLow27.0-33.0The [facility] InstituteComment on above:Order Comment: No: Do not add to previous draw No collection time noted on specimen or requisition. The collection time recorded is the time of receipt in the lab.Performed By: #### 48462 #### [facility] [address] [facility] [place] [place] [address], [facility]OS[facility]ITALMCHC (RBC) [Mass/Vol]31.7 g/dLLow32.0-35.0The [facility] InstituteComment on above:Order Comment: No: Do not add to previous draw No collection time noted on specimen or requisition. The collection time recorded is the time of receipt in the lab.Performed By: #### 38600 #### [facility] [address] [facility] [place] [address], [facility] HOSPITALMCV (RBC) [Entitic vol]82.9 vVDmotek68.0-98.0The [facility] InstituteComment on above:Order Comment: No: Do not add to previous draw No collection time noted on specimen or requisition. The collection time recorded is the time of receipt in the lab.Performed By: #### [id number] #### [facility] [address] [facility] [place] [address], USAMonocytes (Bld) [#/Vol]1.1 10*3/uLHigh0.1-1.0The [facility] InstituteComment on above:Order Comment: No: Do not add to previous draw No collection time noted on specimen or requisition. The collection time recorded is the time of receipt in the lab.Performed By: #### 90473 #### [facility] [address] [facility] [place] [address], THKTSFNS10.3 %High5.0-12.0The [facility] InstituteComment on above:Order Comment: No: Do not add to previous draw No collection time noted on specimen or requisition. The collection time recorded is the time of receipt in the lab.Performed By: #### 79530 #### [facility] [address] [facility] [place] [address], USANeutrophils/100 WBC (Bld)54.0 %Nmpetq10.0-72.0The [facility] InstituteComment on above:Order Comment: No: Do not add to previous draw No collection time noted on specimen or requisition. The collection time recorded is the time of receipt in the lab.Performed By: #### 35351 #### [facility] [address] [facility] [place] [address], USANucleated RBC/100 WBC (Bld) [Ratio]0 %Normal0-0The [facility] InstituteComment on above:Order Comment: No: Do not add to previous draw No collection time noted on specimen or requisition. The collection time recorded is the time of receipt in the lab.Performed By: #### 42703 #### [facility] [address] [facility] [place] [address], USAPLAT QLJ114 10*3/gCTjhldi045-838Rkt [facility] InstituteComment on above:Order Comment: No: Do not add to previous draw No collection time noted on specimen or requisition. The collection time recorded is the time of receipt in the lab.Performed By: #### 93321 #### [facility] [address] [facility] [place] [address], USARBC (Bld) [#/Vol]4.26 10*6/uLNormal3.80-5.00The [facility] InstituteComment on above:Order Comment: No: Do not add to previous draw No collection time noted on specimen or requisition. The collection time recorded is the time of receipt in the lab.Performed By: #### 47653 #### [facility] [address] [facility] [place] [address], [facility] HOSPITALWBC (Bld) [#/Vol]8.18 10*3/uLNormal4.00-10.60The [facility] InstituteComment on above:Order Comment: No: Do not add to previous draw No collection time noted on specimen or requisition. The collection time recorded is the time of receipt in the lab.Performed By: #### 13583 #### [facility] [address] [facility] [place] [place] [address], USAMAGNESIUM BLOODon 23-38-0569Jflcrbumv [Mass/Vol]1.8 mg/dL Low1.9-2.7The [facility] InstituteComment on above:Order Comment: No: Do not add to previous drawPerformed By: #### 36727, 37447, 50293 #### [facility] [address] [place] [address], USAPOC GLUCOSE LABon 53-95-4922Abbiqlg [Mass/Vol]266 mg/dLHigh 70-100The [facility] InstituteComment on above:Performed By: #### 83925 #### [facility] [address] [address], USAGlucose [Mass/Vol]346 mg/jDAizz27-838Sqy [facility] InstituteComment on above:Performed By: #### 53303, 77682, 57130 #### [facility] [address] [address], USAGlucose [Mass/Vol]206 mg/kEOkvz46-136Ohe [facility] InstituteComment on above:Performed By: #### 18774, 69920, 26333 #### [facility] [address] [facility] [place] [address], USATROPONIN-Ion 20-01-1560Cmcglpal I.cardiac [Mass/Vol]1.03 ng/mLCritically high0.00-0.04The [facility] InstituteComment on above:Result Comment: M-PREVIOUS CRITICAL RESULT REFERENCE RANGES: 0.00 - 0.04 ng/ml NORMAL 0.05 - 0.50 ng/ml INDETERMINATE > 0.50 ng/ml CONSISTENT WITH AN M.I.Performed By: #### 51188, 81488, 88976 #### [facility] [address] [facility] [place] [address], USAUFH HEPARIN ASSAYon 32-76-3178FCQETGDWRJLDJC HEPARIN0.70 IU/mLNormal0.30-0.70The [facility] InstituteComment on above: Result Comment: Rivaroxaban and Apixaban will interfere with the anti Xa assay used to monitor UFH and LMWH.Performed By: #### 09605 #### [facility] [address] [place] [address], USAUNFRACTIONATED HEPARIN0.61 IU/mLNormal0.30-0.70The [facility] InstituteComment on above:Result Comment: Rivaroxaban and Apixaban will interfere with the anti Xa assay used to monitor UFH and LMWH.Performed By: #### 03470 #### [facility] [address] [place] [address], USAUNFRACTIONATED HEPARIN0.85 IU/mLHigh0.30-0.70The [facility] InstituteComment on above:Result Comment: Rivaroxaban and Apixaban will interfere with the anti Xa assay used to monitor UFH and LMWH.Performed By: #### 18234 #### [facility] [address] [facility] [place] [id number], [facility] HOSPITALCBC COMPLETE BLOOD COUNTon 81-57-1675Yrhxduydyrn distribution width (RBC) [Ratio]13.4 %Zdhqdr46.5-15.0The [facility] InstituteComment on above:Order Comment: No: Do not add to previous draw Performed By: #### 57873 #### [facility] [address] [facility] [place] [address], USAHematocrit (Bld) [Volume fraction]34.3 %Low36.0-45.0The [facility] InstituteComment on above:Order Comment: No: Do not add to previous drawPerformed By: #### 33234 #### [facility] [address] [facility] [place] [address], USAHemoglobin (Bld) [Mass/Vol]11.3 g/dLLow12.0-15.0The [facility] InstituteComment on above:Order Comment: No: Do not add to previous drawPerformed By: #### 79658 #### [facility] [address] [facility] [place] [address], [facility] (RBC) [Entitic mass]27.2 egUsdrcd18.0-33.0The [facility] InstituteComment on above:Order Comment: No: Do not add to previous drawPerformed By: #### 55564 #### [facility] [address] [place] [id number], [facility] CITYHC (RBC) [Mass/Vol]32.9 g/kWOuqtpm49.0-35.0The [facility] InstituteComment on above:Order Comment: No: Do not add to previous drawPerformed By: #### 76699 #### [facility] [address] [address], [facility] CITYV (RBC) [Entitic vol]82.7 yQPpwkhx65.0-98.0The [facility] InstituteComment on above:Order Comment: No: Do not add to previous drawPerformed By: #### 92742 #### [facility] [address] [place] [address], [facility] HOSPITALNucleated RBC/100 WBC (Bld) [Ratio]0 %Normal0-0The [facility] InstituteComment on above:Order Comment: No: Do not add to previous drawPerformed By: #### 35367 #### [facility] [address] [place] [address], USAPLAT CDJ180 10*3/cTScnqzo891-424Mbm [facility] InstituteComment on above:Order Comment: No: Do not add to previous draw Performed By: #### 19541 #### [facility] [address] [facility] [place] [address], [facility] HOSPITALRBC (Bld) [#/Vol]4.15 10*6/uLNormal3.80-5.00The [facility] InstituteComment on above:Order Comment: No: Do not add to previous drawPerformed By: #### 17403 #### [facility] [address] [facility]. [place] [id number], USAWBC (Bld) [#/Vol]7.28 10*3/uLNormal4.00-10.60The [facility] InstituteComment on above:Order Comment: No: Do not add to previous drawPerformed By: #### 48718 #### [facility] [address] [facility] [place] [address], USAErythrocyte distribution width (RBC) [Ratio]13.3 %Normal 11.5-15.0The [facility] InstituteComment on above:Order Comment: No: Do not add to previous draw No collection time noted on specimen or requisition. The collection time recorded is the time of receipt in the lab.Performed By: #### [id number] #### [facility] [address] [facility] [place] [address], USAHematocrit (Bld) [Volume fraction]33.4 %Low36.0-45.0The [facility] InstituteComment on above:Order Comment: No: Do not add to previous draw No collection time noted on specimen or requisition. The collection time recorded is the time of receipt in the lab.Performed By: #### 81905 #### [facility] [address] [facility] [place] [address], USAHemoglobin (Bld) [Mass/Vol]10.8 g/dLLow12.0-15.0The [facility] InstituteComment on above:Order Comment: No: Do not add to previous draw No collection time noted on specimen or requisition. The collection time recorded is the time of receipt in the lab.Performed By: #### [id number] #### [facility] [address] [facility]. [place] [id number], USAMCH (RBC) [Entitic mass]26.8 pgLow27.0-33.0The [facility] InstituteComment on above:Order Comment: No: Do not add to previous draw No collection time noted on specimen or requisition. The collection time recorded is the time of receipt in the lab.Performed By: #### [id number] #### [facility] [address] [facility] [place] [address], [facility] HOSPITALMCHC (RBC) [Mass/Vol]32.3 g/fVZydwii83.0-35.0The [facility] InstituteComment on above:Order Comment: No: Do not add to previous draw No collection time noted on specimen or requisition. The collection time recorded is the time of receipt in the lab.Performed By: #### [id number] #### [facility] [address] [facility] [place] [address], [facility] HOSPITALMCV (RBC) [Entitic vol]82.9 kOZwloxh56.0-98.0The [facility] InstituteComment on above:Order Comment: No: Do not add to previous draw No collection time noted on specimen or requisition. The collection time recorded is the time of receipt in the lab.Performed By: #### [id number] #### [facility] [address] [facility] [place] [address], USANucleated RBC/100 WBC (Bld) [Ratio]0 %Normal0-0The [facility] Health InstituteComment on above:Order Comment: No: Do not add to previous draw No collection time noted on specimen or requisition. The collection time recorded is the time of receipt in the lab.Performed By: #### [id number] #### [facility] [address] [facility] [place] [address], USAPLAT BOG265 10*3/nZXjfvdq142-564Rvt [facility] InstituteComment on above:Order Comment: No: Do not add to previous draw No collection time noted on specimen or requisition. The collection time recorded is the time of receipt in the lab.Performed By: #### [id number] #### [facility] [address] [facility] [place] [address], [facility] HOSPITALRBC (Bld) [#/Vol]4.03 10*6/uLNormal3.80-5.00The [facility] Health InstituteComment on above:Order Comment: No: Do not add to previous draw No collection time noted on specimen or requisition. The collection time recorded is the time of receipt in the lab.Performed By: #### [id number] #### [facility] [address] [address], USAWBC (Bld) [#/Vol]7.85 10*3/uLNormal4.00-10.60The [facility] InstituteComment on above:Order Comment: No: Do not add to previous draw No collection time noted on specimen or requisition. The collection time recorded is the time of receipt in the lab.Performed By: #### [id number] #### [facility] [address] [facility] [place] [address], USACBC W/DIFFon [id number] IMM GRANS0.0 10*3/uLNormal 0.0-0.2The [facility] InstituteComment on above:Order Comment: No collection time noted on specimen or requisition. The collection timerecorded is the time of receipt in the lab.Performed By: #### [id number] #### [facility] [address] [facility] [place] [address], USAABS NEUTROPHILS5.2 10*3/uLNormal1.6-7.6The [facility] Health InstituteComment on above:Order Comment: No collection time noted on specimen or requisition. The collection timerecorded is the time of receipt in the lab.Performed By: #### [id number] #### [facility] [address] [facility] [place] [address], USABasophils (Bld) [#/Vol]0.0 10*3/uLNormal0.0-0.2The [facility] InstituteComment on above:Order Comment: No collection time noted on specimen or requisition. The collection timerecorded is the time of receipt in the lab.Performed By: #### [id number] #### [facility] [address] [facility] [place] [address], USABasophils/100 WBC (Bld)0.5 %Normal0.0-1.0The [facility] InstituteComment on above:Order Comment: No collection time noted on specimen or requisition. The collection timerecorded is the time of receipt in the lab.Performed By: #### 82031 #### [facility] [address] [address], USAEosinophils (Bld) [#/Vol]0.1 10*3/uLNormal0.0-0.5The [facility] InstituteComment on above:Order Comment: No collection time noted on specimen or requisition. The collection timerecorded is the time of receipt in the lab.Performed By: #### [id number] #### [facility] [address] [facility]. [place] [id number], USAEosinophils/100 WBC (Bld)1.3 %Normal0.0-6.0The [facility] Health InstituteComment on above:Order Comment: No collection time noted on specimen or requisition. The collection timerecorded is the time of receipt in the lab.Performed By: #### [id number] #### [facility] [address] [facility] [place] [address], USAErythrocyte distribution width (RBC) [Ratio]13.3 %Normal 11.5-15.0The [facility] Health InstituteComment on above:Order Comment: No collection time noted on specimen or requisition. The collection timerecorded is the time of receipt in the lab.Performed By: #### [id number] #### [facility] [address] [facility] [place] [address], USAHematocrit (Bld) [Volume fraction]34.0 %Low36.0-45.0The [facility] Health InstituteComment on above:Order Comment: No collection time noted on specimen or requisition. The collection timerecorded is the time of receipt in the lab.Performed By: #### [id number] #### [facility] [address] [facility] [place] [address], USAHemoglobin (Bld) [Mass/Vol]11.4 g/dLLow12.0-15.0The [facility] InstituteComment on above:Order Comment: No collection time noted on specimen or requisition. The collection timerecorded is the time of receipt in the lab.Performed By: #### [id number] #### [facility] [address] [facility] [place] [address], USAIMMATURE GRANS0.4 %Normal0.0-1.0The [facility] Health InstituteComment on above:Order Comment: No collection time noted on specimen or requisition. The collection timerecorded is the time of receipt in the lab.Performed By: #### [id number] #### [facility] [address] [facility] [place] [address], USALymphocytes (Bld) [#/Vol]1.5 10*3/uLNormal1.2-4.0The [facility] InstituteComment on above:Order Comment: No collection time noted on specimen or requisition. The collection timerecorded is the time of receipt in the lab.Performed By: #### [id number] #### [facility] [address] [facility] [place] [address], USALymphocytes/100 WBC (Bld)19.5 %Low20.0-45.0The [facility] Health InstituteComment on above:Order Comment: No collection time noted on specimen or requisition. The collection timerecorded is the time of receipt in the lab.Performed By: #### [id number] #### [facility] [address] [facility] [place] [address], USAMCH (RBC) [Entitic mass]27.7 atKvwziw68.0-33.0The [facility] InstituteComment on above:Order Comment: No collection time noted on specimen or requisition. The collection timerecorded is the time of receipt in the lab.Performed By: #### [id number] #### [facility] [address] [place] [address], [facility] HOSPITALMCHC (RBC) [Mass/Vol]33.5 g/bEOpjvgn43.0-35.0The [facility] InstituteComment on above:Order Comment: No collection time noted on specimen or requisition. The collection timerecorded is the time of receipt in the lab.Performed By: #### 71149 #### [facility] [address] [address], [facility] HOSPITALMCV (RBC) [Entitic vol]82.7 eUYliqpk77.0-98.0The [facility] InstituteComment on above:Order Comment: No collection time noted on specimen or requisition. The collection timerecorded is the time of receipt in the lab.Performed By: #### [id number] #### [facility] [address] [facility] [place] [address], USAMonocytes (Bld) [#/Vol]1.0 10*3/uLNormal0.1-1.0The [facility] InstituteComment on above:Order Comment: No collection time noted on specimen or requisition. The collection timerecorded is the time of receipt in the lab.Performed By: #### [id number] #### [facility] [address] [facility] [place] [address], EZUVAXAI56.5 %High5.0-12.0The [facility] InstituteComment on above:Order Comment: No collection time noted on specimen or requisition. The collection timerecorded is the time of receipt in the lab. Performed By: #### 51619 #### [facility] [address] [facility]. [place] [id number], USANeutrophils/100 WBC (Bld)65.8 %Huyfbh89.0-72.0The [facility] InstituteComment on above:Order Comment: No collection time noted on specimen or requisition. The collection timerecorded is the time of receipt in the lab.Performed By: #### [id number] #### [facility] [address] [place] [address], USANucleated RBC/100 WBC (Bld) [Ratio]0 %Normal0-0The [facility] InstituteComment on above:Order Comment: No collection time noted on specimen or requisition. The collection timerecorded is the time of receipt in the lab.Performed By: #### [id number] #### [facility] [address] [facility] [place] [address], USAPLAT IBR824 10*3/iEXylbcg335-127Gyi [facility] InstituteComment on above:Order Comment: No collection time noted on specimen or requisition. The collection timerecorded is the time of receipt in the lab.Performed By: #### [id number] #### [facility] [address] [facility] [place] [address], USARBC (Bld) [#/Vol]4.11 10*6/uLNormal3.80-5.00The [facility] InstituteComment on above:Order Comment: No collection time noted on specimen or requisition. The collection timerecorded is the time of receipt in the lab.Performed By: #### 46395 #### [facility] [address] [facility] [place] [address], USAWBC (Bld) [#/Vol]7.91 10*3/uLNormal4.00-10.60The [facility] InstituteComment on above:Order Comment: No collection time noted on specimen or requisition. The collection timerecorded is the time of receipt in the lab.Performed By: #### 59107 #### [facility] [address] [facility] [place] [address], USACOMP METABOLIC PANELon 42-60-0898Zbmuhux [Mass/Vol]2.9 g/dL Low3.5-5.7The [facility] InstituteComment on above:Order Comment: No: Do not add to previous draw No collection time noted on specimen or requisition. The collection time recorded is the time of receipt in the lab.Performed By: #### [id number] #### [facility] [address] [place] [address], USAALKALINE KWGNXJ31 IU/AOtctmq66-029Bfk [facility] InstituteComment on above:Order Comment: No: Do not add to previous draw No collection time noted on specimen or requisition. The collection time recorded is the time of receipt in the lab.Performed By: #### [id number] #### [facility] [address] [place] [address], USAALT [Catalytic activity/Vol]21 U/LNormal7-52The [facility] InstituteComment on above:Order Comment: No: Do not add to previous draw No collection time noted on specimen or requisition. The collection time recorded is the time of receipt in the lab.Performed By: #### [id number] #### [facility] [address] [place] [address], USAAST [Catalytic activity/Vol]27 U/SHzqboe50-88Tts [facility] InstituteComment on above:Order Comment: No: Do not add to previous draw No collection time noted on specimen or requisition. The collection time recorded is the time of receipt in the lab.Performed By: #### 60069 #### [facility] [address] [place] [address], USABilirubin [Mass/Vol]0.5 mg/dLNormal0.3-1.0The [facility] InstituteComment on above:Order Comment: No: Do not add to previous draw No collection time noted on specimen or requisition. The collection time recorded is the time of receipt in the lab.Performed By: #### 62726 #### [facility] [address] [place] [address], USACalcium [Mass/Vol]8.2 mg/dLLow8.6-10.3The [facility] Health InstituteCommclaren northern [place] on above:Order Comment: No: Do not add to previous draw No collection time noted on specimen or requisition. The collection time recorded is the time of receipt in the lab.Performed By: #### 27617 #### [facility] [address] [place] [address], USAChloride [Moles/Vol]101 mmol/GXrppgl98-542Trp [facility] InstituteComment on above:Order Comment: No: Do not add to previous draw No collection time noted on specimen or requisition. The collection time recorded is the time of receipt in the lab.Performed By: #### [id number] #### [facility] [address] [place] [address], USACO2 [Moles/Vol]22 mmol/MYjugqv72-43Nyy [facility] InstituteComment on above:Order Comment: No: Do not add to previous draw No collection time noted on specimen or requisition. The collection time recorded is the time of receipt in the lab.Performed By: #### 60253 #### [facility] [address] [place] [address], USACreatinine [Mass/Vol]0.45 mg/dLLow0.60-1.20The [facility] InstituteComment on above:Order Comment: No: Do not add to previous draw No collection time noted on specimen or requisition. The collection time recorded is the time of receipt in the lab.Performed By: #### [id number] #### [facility] [address] [place] [address], USAGFR/1.73 sq M.predicted among non-blacks MDRD (S/P/Bld) [Vol rate/Area]mL/min/{1.73_m2}Normal>60The [facility] Comment on above:Order Comment: No: Do not add to previous draw No collection time noted on specimen or requisition. The collection time recorded is the time of receipt in the lab.Result Comment: The [facility]'s estimated glomerular filtration rate (eGFR) will no [...] any one group of individuals.Performed By: #### [id number] #### [facility] [address] [place] [address], USAGlucose [Mass/Vol]278 mg/kLTusr78-734Hfl [facility] InstituteComment on above:Order Comment: No: Do not add to previous draw No collection time noted on specimen or requisition. The collection time recorded is the time of receipt in the lab.Performed By: #### 02720 #### [facility] [address] [place] [address], USAPotassium [Moles/Vol]3.8 mmol/LNormal3.5-5.1The [facility] InstituteComment on above:Order Comment: No: Do not add to previous draw No collection time noted on specimen or requisition. The collection time recorded is the time of receipt in the lab.Performed By: #### 36091 #### [facility] [address] [place] [address], USAProtein [Mass/Vol]5.3 g/dLLow6.0-8.3The [facility] InstituteComment on above:Order Comment: No: Do not add to previous draw No collection time noted on specimen or requisition. The collection time recorded is the time of receipt in the lab.Performed By: #### [id number] #### [facility] [address] [place] [address], USASodium [Moles/Vol]133 mmol/PBha708-873Glj [facility] InstituteComment on above:Order Comment: No: Do not add to previous draw No collection time noted on specimen or requisition. The collection time recorded is the time of receipt in the lab.Performed By: #### 69751 #### [facility] [address] [place] [address], USAUrea nitrogen [Mass/Vol]19 mg/dLNormal7-25The [facility] InstituteComment on above:Order Comment: No: Do not add to previous draw No collection time noted on specimen or requisition. The collection time recorded is the time of receipt in the lab.Performed By: #### 46191 #### [address] [address], USACTA CHESTon [id number] CHESTUnMemorial Health System [facility] Department of Radiology [address] [place] [id number] Patient Name: DIANN PATEL : 1955 Sex: F Age: Race: White Pt. Location: [facility] Patient Status: E Ordered Date: 2022 11:35:00 [...] report. Electronically signed: Shane Baldwin. Transcribed by: [email or web address], User Resident: [email or web address] RSUS Electronically Signed by: SHANE BALDWIN @ 06/29/2022 01:00 AM I personally read this/these film(s) with this residentAccess Hospital DaytonComment on above:Order Comment: Pulmonary Embolism HEMOGLOBIN A1Con 83-65-2517Yfcxyim [Moles/Vol]111 mmol/LNormalThe [facility] InstituteComment on above:Order Comment: No: Do not add to previous draw No collection time noted on specimen or requisition. The collection time recorded is the time of receipt in the lab.Performed By: #### [id number] #### [facility] [address] [place] [address], AGTEwR6w (Bld) [Mass fraction]5.5 %Normal4.0-6.0The [facility] InstituteComment on above:Order Comment: No: Do not add to previous draw No collection time noted on specimen or requisition. The collection time recorded is the time of receipt in the lab.Performed By: #### [id number] #### [facility] [address] [address], USALIPID PROFILEon [id number] [Mass/Vol]223 mg/dL Yqpt083-105Zoi [facility] InstituteComment on above:Result Comment: CHOLESTEROL REFERENCE RANGE: 20 YEARS AND OLDER CARDIOVASCULAR RISK Less than 200 mg/dl Low Risk 200 to 239 mg/dl Borderline Risk 240 mg/dl and greater High RiskPerformed By: #### 46638 #### [facility] [address] [facility] [place] [address], USACholesterol in HDL [Mass/Vol]28 mg/iTLjhnye13-53Iwz [facility] InstituteComment on above:Result Comment: Slight variation in normal range could be due to gender and/or age. HDL CHOLESTEROL REFERENCE RANGE: 20 years and older Cardiovascular Risk > or =60 mg/dL Desirable 40 TO 59 mg/dL Low Risk <40 mg/dL High RiskPerformed By: #### 05058 #### [facility] [address] [facility] [place] [address], USACholesterol in LDL [Mass/Vol]138 mg/dLHigh0-130The [facility] InstituteComment on above:Result Comment: LDL IS A CALCULATION LDL IS ONLY VALID IF THE TRIG IS LESS THAN 400.Performed By: #### 22592 #### [facility] [address] [facility] [place] [address], USACholesterol.total/Cholesterol in HDL [Mass ratio]8.0 {ratio}High.0-4.5The [facility] InstituteComment on above: Performed By: #### 86566 #### [facility] [address] [place] [address], USANON-HDL VEWCIYSBEDE277 mg/dLNormCleveland Clinic Medina HospitalComment on above:Performed By: #### 72553 #### [facility] [address] [place] [address], USATriglyceride [Mass/Vol]285 mg/rCUmdn34-575Lgz [facility] InstituteComment on above:Result Comment: TRIGLYCERIDE REFERENCE RANGE: 20 YEARS AND OLDER CARDIOVASCULAR RISK LESS THAN 150 mg/dl LOW RISK 150 TO 199 mg/dl BORDERLINE RISK 200 mg/dl AND GREATER HIGH RISKPerformed By: #### 83488 #### [facility] [address] [place] [address], USAVLDL CHOL57 mg/dLHigh0-40[facility] Bucyrus HospitalComment on above:Performed By: #### 11482 #### [facility] [address] [place] [address], USAPOC GLUCOSE LABon 37-95-7286Koiwypw [Mass/Vol]190 mg/dLHigh 70-100The [facility] InstituteComment on above:Performed By: #### 93497 #### [facility] [address] [place] [address], USAGlucose [Mass/Vol]256 mg/oPMofn29-598Wwv [facility] InstituteComment on above:Performed By: #### 81769 #### [facility] [address] [place] [address], USAGlucose [Mass/Vol]444 mg/bWEbva35-630Aah [facility] InstituteComment on above:Performed By: #### 06852, [id number], 93945 #### [facility] [address] [place] [address], USAGlucose [Mass/Vol]304 mg/vDMqdu94-518Uzy [facility] InstituteComment on above:Performed By: #### 42966, 98938, 70480 #### [facility] [address] [facility] [place] [address], [facility] HOSPITALPO SARS COV2 ANTIGEN NEGATIVEon [id number] SARS COV2 ANTIGEN NEGNegativeNormalNEGATIVEThe [facility] InstituteComment on above:Result Comment: Negative results should be [...] antigen from SARS-CoV-2 in direct nasopharyngeal swab (INFORMATION SYSTEMS SPECIALIST) specimens from individuals who are suspected [...] Compliance, or Certificate of Accreditation.Performed By: #### 08431 #### [facility] [address] [facility] [place] [address], USATROPONIN-Ion 36-11-9652Gewlwkls I.cardiac [Mass/Vol]1.52 ng/mLCritically high0.00-0.04The [facility] InstituteComment on above:Order Comment: No: Do not add to previous draw No collection time noted on specimen or requisition. The collection time recorded is the time of receipt in the lab.Result Comment: M-PREVIOUS CRITICAL RESULT REFERENCE RANGES: 0.00 - 0.04 ng/ml NORMAL 0.05 - 0.50 ng/ml INDETERMINATE > 0.50 ng/ml CONSISTENT WITH AN M.I.Performed By: #### 84011 #### [facility] [address] [place] [address], USATroponin I.cardiac [Mass/Vol]1.77 ng/mLCritically high 0.00-0.04The [facility] InstituteComment on above:Order Comment: No: Do not add [...] ng/ml CONSISTENT WITH AN M.I.Performed By: #### 57337 #### [facility] [address] [facility] [place] [address], USATSH3 WITH REFLEX FT4on 20-10-0769WEE 3RD GENERATION1.96 uIU/mLNormal0.34-5.60The [facility] InstituteComment on above: Performed By: #### 69577 #### [facility] [address] [address], USAUFH HEPARIN ASSAYon 62-25-1090UZQPXTOUYQKNCI HEPARIN0.15 IU/mLCritically low0.30-0.70The [facility] InstituteComment on above:Result Comment: RESULTS CHECKED AND CALLED. ACCURATELY READ BACK BY Isabela Shannon RN at 2220 PMW 06-29-22. Rivaroxaban and Apixaban will interfere with the anti Xa assay used to monitor UFH and LMWH.Performed By: #### 67961 #### [facility] [address] [facility] [place] [address], USAUNFRACTIONATED HEPARIN<0.10Critically low0.30-0.70The [facility] InstituteComment on above:Result Comment: Result checked and called. Accurately read back by JENNIFER WILLINGHAM RN @1404 06/29/22 Rivaroxaban and Apixaban will interfere with the anti Xa assay used to monitor UFH and LMWH.Performed By: #### 49024 #### [facility] [address] [facility] [place] [address], USAUNFRACTIONATED HEPARIN<0.10Critically low0.30-0.70The [facility] InstituteComment on above:Result Comment: RESULTS CHECKED AND CALLED. ACCURATELY READ BACK BY REG KILGORE RN @ 0531 Rivaroxaban and Apixaban will interfere with the anti Xa assay used to monitor UFH and LMWH.Performed By: #### 71778 #### [facility] [address] [facility] [place] [place] [address], [facility] HOSPITALAPTTon [id number] Coag (Bld) [Time]32.0 sNormal 25.0-35.0The [facility] InstituteComment on above:Result Comment: ALL RESULTS MUST BE [...] BE USED FOR THIS PURPOSE.Performed By: #### 25943 #### [facility] [address] [facility] [place] [address], [facility] HOSPITALBNPon 78-13-9569Vcaxannccxp peptide B (Bld) [Mass/Vol] 3794.0 pg/mLCritically high<=900.0The [facility] CenterComment on above: Performed By: #### CBC #### [facility] [address] [place] [address] Dr. Sruthi EVANGELISTA ADMITon [id number] [Catalytic activity/Vol]51 U/L Yqeeta93-984Xut [facility] CenterComment on above:Performed By: #### CBC #### [facility] Laboratory [address] [address] [address] Surthi Bernardo.MB [Mass/Vol]2.23 ng/mLNormal<=3.60The [facility] Comment on above:Performed By: #### CBC #### [facility] Laboratory [address] [address] [address] Sruthi CoatsOP705.8 pg/mLCritically high4.0-51.3TMarietta [facility] Comment on above:Result Comment: CUT-OFF POINTS HAVE BEEN ESTABLISHED BASED ON THE FOURTH UNIVERSAL DEFINITIONS OF MYOCARDIAL INFARCTION. THE UPPER REFERENCE LIMIT (URL) OF TROPONIN, DEFINED THE 99TH PERCENTILE OF cTnI DISTRIBUTION IN A REFERENCE POPULATION, HAS BEEN CONFIRMED THE DECISION THRESHOLD FOR LA DIAGNOSIS.Performed By: #### CBC #### [facility] Laboratory [address] [address] [address] Sruthi Jo73 ng/mLNormal9-82[facility] HospitalComment on above: Performed By: #### CBC #### [facility] Laboratory [address] [address] [address] Sruthi Fisher W MANUAL DIFFon 29-56-1919JNMRBHAR LYMPH #NormalCleveland Clinic Mentor HospitalComment on above:Performed By: #### CBCMAN ####[facility] Y[address] [place], [place] [address]Dr. Yilan ChangATYPICAL LYMPH %NormalCleveland Clinic Mentor HospitalComment on above:Performed By: #### CBCMAN ####[facility] [address] [address]Dr. Yilan ChangBAND #0.1 103/ulNormal0.0-0.3TMarietta Osteopathic ClinicComment on above: Performed By: #### CBCMAN ####[facility] [address] [address]Dr. Yilan ChangBAND %1 %Normal0-5The [facility] Comment on above:Performed By: #### CBCMAN ####[facility] [address] [place], [place] [address]Dr. Yilan ChangBASOM #0.00 103/ulNormal 0.00-0.10The [facility] CenterComment on above:Performed By: #### CBCMAN ####[facility] Cgacjanasn[address] [place], [place] [address]Dr. Yilan ChangBASOM %0.0 %Critically low0.2-2.0The [facility] CenterComment on above:Performed By: #### CBCMAN ####[facility] [address] [address]Dr. Yilan ChangBLAST #NormalThe [facility] Comment on above:Performed By: #### CBCMAN ####[facility] [address] [address]Dr. Yilan ChangBLAST %NormalThe [facility] CenterComment on above:Performed By: #### CBCMAN ####[facility] [address] [place], [place] [address]Dr. Yilan ChangCORRECTED WBC Normal4.0-11.0The [facility] CenterComment on above:Performed By: #### CBCMAN ####[facility] Wycp[address] [place], [place] [address]Dr. Yilan ChangEOS #0.13 103/ulNormal0.00-0.70The [facility] CenterComment on above: Performed By: #### CBCMAN ####[facility] Migyakluly[address] [place], [place] [address]Dr. Yilan ChangEOS%1.0 %Normal0.9-7.0The [facility] CenterComment on above:Performed By: #### CBCMAN ####[facility] Z[address]cvelftk[address] [place], [place] [address]Dr. Yilan RgffjZIR77.8 % Tezszc32.0-48.0The [facility] CenterComment on above:Performed By: #### CBCMAN ####[facility] Yvnp[address]mb[address] [place], [place] [address]Dr. Yilan WplttYNG88.5 g/loUveeab94.0-16.0The [facility] CenterComment on above: Performed By: #### CBCMAN ####[facility] Dumiqvfced[address] [place], [place] [address]Dr. Yilan ChangLYMPHM #1.51 103/ulNormal1.20-3.80The [facility] CenterComment on above:Performed By: #### CBCMAN ####[facility] [address] [address]Dr. Sruthi Arechiga LYMPHM%12.0 %Critically low20.5-60.0The [facility] CenterComment on above: Performed By: #### CBCJOSE ANGEL ####[facility] [address] [address]Dr. Sruthi ArechigaMCH27.2 biXrcfpo87.7-34.0The [facility] HospitalComment on above:Performed By: #### CBCJOSE ANGEL ####[facility] [address] [address]Dr. Sruthi ArechigaMCHC32.2 g/dl Qlfwpf97.9-35.2The [facility] CenterComment on above:Performed By: #### CBCJOSE ANGEL ####[facility] Bmsyxzdgzn[address] [place], [place] [address]Dr. Sruthi ArechigaMCV84.3 bAIoiagy82.0-99.0The [facility] CenterComment on above: Performed By: #### CBCJOSE ANGEL ####[facility] Ypbwajotlw[address] [place], [place] [address]Dr. Yilan ChangMETAMYELOCYTE #NormalThe [facility] CenterComment on above:Performed By: #### CBCJOSE ANGEL ####[facility] Tkrdkwxcib[address] [place], [place] [address]Dr. Kamalalan ChangMETAMYELOCYTE %NormalThe [facility] CenterComment on above:Performed By: #### CBCJOSE ANGEL ####[facility] Zslbgbilzg[address] [place], [place] [address]Dr. Sruthi ChangMONOM#1.64 103/ulCritically high0.30-0.80The [facility] CenterComment on above:Performed By: #### CBCJOSE ANGEL ####[facility] Axbunpezrg[address] [place], [place] [address]Dr. Sruthi ArechigaMONOM%13.0 %Critically high 1.7-12.0The [facility] CenterComment on above:Performed By: #### CBCJOSE ANGEL ####[facility] Tderkicojx[address] [place], [place] [address]Dr. Kamalalan TaygcPDW48.7 fLNormal9.5-13.5The [facility] CenterComment on above: Performed By: #### CBCJOSE ANGEL ####[facility] [address] [address]Dr. Yilan ChangMYELOCYTE #NormalThe [facility] Comment on above:Performed By: #### CBCJOSE ANGEL ####[facility] [address] [address]Dr. Yilan ChangMYELOCYTE %NormalThe [facility]bt[facility] HospitalComment on above:Performed By: #### CBCJOSE ANGEL ####[facility] [address] [address]Dr. Yilan ChangNRBCNormalThe [facility] CenterComment on above:Performed By: #### CBCJOSE ANGEL ####[facility] Xnwrsuvmye[address] [place], [place] [address]Dr. Yilan ChangPLT 237 103/jlUhxjoc607-954Hbf [facility] CenterComment on above:Performed By: #### ISAAK ####[facility] Hfifpnlazd[address] [place], [place] [address]Dr. Yilan ChangRBC4.60 106/ulNormal4.20-5.40The [facility] CenterComment on above:Performed By: #### ISAAK ####[facility] Gwfudrbnmf[address] [place], [place] [address]Dr. Yilan OowsdETD33.2 %Mwzmyz01.0-15.0The [facility] CenterComment on above:Performed By: #### CBCJOSE ANGEL ####[facility] Er[address] [place], [place] [address]Dr. Yilan ChangSEG #9.20 103/ulCritically high1.40-6.50The [facility] CenterComment on above:Performed By: #### CBCJOSE ANGEL ####[facility] Mhuqeflkjs[address] [place], [place] [address]Dr. Yilan ChangSEG %73.0 %Akwudp52.0-75.0The [facility] CenterComment on above:Performed By: #### CBCJOSE ANGEL ####[facility] Ltugwdvide[address] [place], [place] [address]Dr. Yilan ZjyatSRO03.6 103/ulCritically high 4.0-11.0The [facility] CenterComment on above:Performed By: #### CBCMAN ####[facility] [address] [address]Dr. Sruthi ArechigaCovid-19 PCR (CVDTB)on 58-72-8275VJWC-CoV-2 (COVID-19) RNA KOLE+probe Ql (Unsp spec)Not detectedNormalNOT DETECTEDThe [facility] CenterComment on above:Result Comment: When diagnostic testing is [...] for this test is supported by the Home Health Nurse Licensed Practical of Health and Human Service's declaration that [...] no longer be used).Performed By: #### CVDTB ####[facility] [address] [address]DrIndu ArechigaLIPASEon 64-54-6569Cneuia [Catalytic activity/Vol]75.0 U/L Xcvses99.0-393.0The [facility] CenterComment on above:Performed By: #### CBC #### [facility] Laboratory [address] [address] [address] Sruthi ArechigaPOINT OF CARE GLUCOSEon 59-50-4039Zbktuoy [Mass/Vol]351 mg/dL Critically xpxx05-292Plf [facility] CenterComment on above:Performed By: #### CVDTBH #### [facility] Laboratory [address] [place] [address] Dr. Sruthi ArechigaPROF 14(COMP METB)on 78-12-3084Axeknos [Mass/Vol]2.5 g/dL Critically low3.4-5.0The [facility] CenterComment on above:Performed By: #### CMP #### [facility] Laboratory [address] [place] [address] Dr. Sruthi ArechigaAlbumin/Globulin [Mass ratio]0.6 {ratio}NormalThe [facility] CenterComment on above:Performed By: #### CMP #### [facility] Laboratory [address] [place] [address] Dr. Sruthi GallowayP [Catalytic activity/Vol]132 U/LCritically ruki11-871Efi [facility] CenterComment on above:Performed By: #### CMP #### [facility] Laboratory [address] [place] [address] Dr. Sruthi GallowayT [Catalytic activity/Vol]32 U/YWxnthj88-15Ypt [facility] CenterComment on above:Performed By: #### CMP #### [facility] Laboratory [address] [place] [address] Dr. Sruthi Corral gap [Moles/Vol]19.2 mmol/LNormalThe [facility] Comment on above:Performed By: #### CMP #### [facility] Laboratory [address] [place] [address] Dr. Sruthi ArechigaAST [Catalytic activity/Vol]24 U/WQmvmuy82-99Rst [facility] CenterComment on above:Performed By: #### CMP #### [facility] Laboratory [address] [place] [address] Dr. Sruthi ArechigaBilirubin [Mass/Vol]0.5 mg/dLNormal0.2-1.0The [facility] Comment on above:Performed By: #### CMP #### [facility] Laboratory [address] [place] [address] Dr. Sruthi ArechigaCalcium [Mass/Vol]9.5 mg/dLNormal8.5-10.1The [facility] Comment on above:Performed By: #### CMP #### [facility] Laboratory [address] [place] [address] Dr. Sruthi ArechigaChloride [Moles/Vol]95 mmol/LCritically tfn22-545Xph [facility] CenterComment on above:Performed By: #### CMP #### [facility] Laboratory [address] [address] [address] Sruthi ArechigaCO2 [Moles/Vol]20.3 mmol/LCritically low21.0-32.0The [facility] CenterComment on above:Performed By: #### CMP #### [facility] Laboratory [address] [address] [address] Sruthi ArechigaCreatinine [Mass/Vol]0.78 mg/dLNormal0.55-1.02The [facility] CenterComment on above:Performed By: #### CMP #### [facility] Laboratory [address] [place] [address] Dr. Negro ChangEGFR-AF GABONESE>60Normal>=60The [facility] CenterComment on above:Performed By: #### CMP #### [facility] Laboratory [address] [address] [address] Sruthi JoyGFR-NON AF GABONESE>60Normal>=60The [facility] CenterComment on above:Performed By: #### CMP #### [facility] Laboratory [address] [address] [address] Sruthi ArechigaGlobulin (S) [Mass/Vol]4.3 g/dLNormalThe [facility] CenterComment on above:Performed By: #### CMP #### [facility] Laboratory [address] [address] [address] Sruthi ArechigaGlucose [Mass/Vol]389 mg/dLCritically mbmx29-645Znu [facility] CenterComment on above:Performed By: #### CMP #### [facility] Laboratory [address] [address] [address] Sruthi ArechigaPotassium [Moles/Vol]3.5 mmol/LNormal3.5-5.1The [facility] Comment on above:Performed By: #### CMP #### [facility] Laboratory [address] [address] [address] Sruthi ArechigaProtein [Mass/Vol]6.8 g/dLNormal6.4-8.2The [facility] Comment on above:Performed By: #### CMP #### [facility] Laboratory [address] [address] [address] Sruthi ArechigaSodium [Moles/Vol]131 mmol/LCritically fzt754-150Tmc [facility] CenterComment on above:Performed By: #### CMP #### [facility] Laboratory [address] [place] [address] Dr. Sruthi Granger nitrogen [Mass/Vol]24.0 mg/dLCritically high7.0-18.0The [facility] CenterComment on above:Performed By: #### CMP #### [facility] Laboratory [address] [place] [address] Dr. Sruthi Granger nitrogen/Creatinine [Mass ratio]30.8 mg/mgNormalThe [facility] CenterComment on above:Performed By: #### CMP #### [facility] Laboratory [address] [place] [address] Dr. Sruthi ArechigaPROTHROMBIN TIMEon 89-34-0919UXX Coag (PPP) [Relative time]1.01 {INR}Normal0.91-1.16The [facility] InstituteComment on above: Result Comment: ACCCP RECOMMENDED INR [...] OPTIMAL THERAPEUTIC RANGE. CHEST 1995;108:231S-246S.Performed By: #### [id number] #### [facility] [address] [place] [address], [place]APT Coag (PPP) [Time]13.3 sDywfbo61.3-14.8The [facility] InstituteComment on above:Result Comment: ALL RESULTS MUST BE INTERPRETED WITH RESPECT TO BLOOD DRAWING ARTIFACT OR DILUTION ERROR OF ANTICOAGULANT AT THE TIME OF SAMPLING.Performed By: #### [id number] #### [facility] [address] [place] [address], USAPROTIMEon 70-00-6465IYD Coag (PPP) [Relative time]0.98 {INR}NormalCleveland Clinic Mentor HospitalComment on above:Performed By: #### CVDTBH #### [facility] Laboratory [address] [place] [address] Dr. Sruthi [facility] HospitalComment on above:Result Comment: DESIRED INR: 2.0 - 3.0 CONDITIONS NOT LISTED BELOW 2.5 - 3.5 FOR PROSTHETIC HEART VALVE REPLACEMENT 2.5 - 3.5 RECURRENT THROMBOSIS Performed By: #### CVDTBH #### [facility] Laboratory [address] [place] [address] Dr. Sruthi Scott Coag (PPP) [Time]10.6 sNormal9.0-11.6The [facility] Comment on above:Performed By: #### CVDTBH #### [facility] Laboratory [address] [place] [address] Dr. Sruthi Overton 60-20-7154kYRU Coag (Bld) [Time]32.5 yQanvdp68.3-36.2[facility] Ment[facility] HospitalComment on above:Performed By: #### CVDTBH #### [facility] Laboratory [address] [place] [address] Dr. Sruthi Tucker, HIGH SENSITIVITYon 29-89-3151PDVOJY2541.1 pg/mL Critically high4.0-51.3The [facility] CenterComment on above:Result Comment: CUT-OFF POINTS HAVE BEEN ESTABLISHED BASED ON THE FOURTH UNIVERSAL DEFINITIONS OF MYOCARDIAL INFARCTION. THE UPPER REFERENCE LIMIT (URL) OF TROPONIN, DEFINED THE 99TH PERCENTILE OF cTnI DISTRIBUTION IN A REFERENCE POPULATION, HAS BEEN CONFIRMED THE DECISION THRESHOLD FOR LA DIAGNOSIS.Performed By: #### HSTROPN #### [facility] Laboratory [address] [place], [place] [address] Dr. Sruthi AbreuTROP1816.7 pg/mLCritically high4.0-51.3The [facility] Comment on above:Result Comment: CUT-OFF POINTS HAVE BEEN ESTABLISHED BASED ON THE FOURTH UNIVERSAL DEFINITIONS OF MYOCARDIAL INFARCTION. THE UPPER REFERENCE LIMIT (URL) OF TROPONIN, DEFINED THE 99TH PERCENTILE OF cTnI DISTRIBUTION IN A REFERENCE POPULATION, HAS BEEN CONFIRMED THE DECISION THRESHOLD FOR LA DIAGNOSIS.Performed By: #### CBC #### [facility] Laboratory [address] [place], [place] [address] Dr. Sruthi Moses 45-75-0736RHI0.865 uIU/mLCritically high0.358-3.740The [facility] CenterComment on above:Performed By: #### TSH, LIPA, BNP, CMADM ####[facility] [address] [place], [place] [address]OuDr. Sruthi Mercer HEPARIN ASSAYon 15-31-6073EHSCCPGIEWMIXS HEPARIN<0.10Critically low0.30-0.70The [facility] InstituteComment on above:Order Comment: No: Do not add [...] to monitor UFH and LMWH.Performed By: #### [id number] #### [facility] [address] [place] [address], USAXR CHEST 1 Von 04-30-2210IZ CHEST 1 VEXAMINATION: XR CHEST 1 V [...] Electronically authenticated by: GERMAIN COY Date: 2022 06:58[facility] Vital Signs Date TimeVital SignValuePerforming XclvrnqfdDwsmprkd03-09-7611 10:40-0500Body exogso994.5 cmSthomas Cedeño INFORMATION SYSTEMS SPECIALIST Work Phone: [facility] HospitalEggilmgskg39-29-3258 10:40-0500Body mass index (BMI) [Ratio]31.78 kg/t0KjtpufJohnna Cedeño INFORMATION SYSTEMS SPECIALIST Work Phone: [facility] HospitalSgbzfqvobd18-13-3636 10:40-0500Body iltiwb58.83 kgJohnna Cedeño INFORMATION SYSTEMS SPECIALIST Work Phone: [facility] HospitalArwwpktkmi45-34-9573 10:40-0500Diastolic blood xtodvbqe65 mm[Hg]Johnna Cedeño INFORMATION SYSTEMS SPECIALIST Work Phone: [facility] HospitalJstqqujzdj24-85-3826 10:40-0500Heart rate67 /min Johnna Cedeño INFORMATION SYSTEMS SPECIALIST Work Phone: [facility] HospitalQmddkpvrmc75-81-0934 10:40-0500Respiratory rate16 /minSthomas Cedeño INFORMATION SYSTEMS SPECIALIST Work Phone: [address] [address]Nmzyrmpsui65-52-9725 10:40-4150CgR9% (BldA) [Mass fraction]94 %Johnna Cedeño INFORMATION SYSTEMS SPECIALIST Work Phone: [address] [address]Tytzblfmqa52-26-5702 10:40-0500Systolic blood kuwuduyz205 mm[Hg]Johnna Cedeño INFORMATION SYSTEMS SPECIALIST Work Phone: [facility] HospitalMdcpzjsxmf88-06-5059 15:10-0500Body fyjrvu134.5 cmAlexis Gilmore DPM Work Phone: [facility] HospitalDtmcqbotnq94-07-6091 15:10-0500Body mass index (BMI) [Ratio]32.01 kg/j9GpqyvkinAlexis Gilmore DPM Work Phone: [facility] HospitalSbkiswuzih90-04-7396 15:10-0500Body .38 kgAlexis Gilmore DPM Work Phone: [facility] HospitalQtavdkmose26-70-5821 15:10-0500Respiratory rate18 /minAlexis Gilmore DPM Work Phone: [facility] HospitalJfyhxizaxh53-69-3280 11:13-0400Body uongmn890.5 cmSthomas Cedeño INFORMATION SYSTEMS SPECIALIST Work Phone: [facility] HospitalRoanaknbez88-51-5166 11:13-0400Body mass index (BMI) [Ratio]32.01 kg/q4CbjlhaJohnna Cedeño INFORMATION SYSTEMS SPECIALIST Work Phone: [facility] HospitalDrvvwygmli31-90-3242 11:13-0400Body temperature 97.81 [degF]Johnna Cedeño INFORMATION SYSTEMS SPECIALIST Work Phone: [facility] HospitalWmwbjmaoph67-77-4669 11:13-0400Body otoivz12.38 kgJohnna Cedeño INFORMATION SYSTEMS SPECIALIST Work Phone: [facility] HospitalZbwfvbaloh42-10-5462 11:13-0400Diastolic blood xqleqcfs26 mm[Hg]Johnna Cedeño INFORMATION SYSTEMS SPECIALIST Work Phone: [facility] HospitalPshvcwcdep98-63-2378 11:13-0400Heart rate61 /min Johnna Cedeño INFORMATION SYSTEMS SPECIALIST Work Phone: [facility] HospitalZefqqrhdlc15-87-5675 11:13-0400Respiratory rate16 /minSthomas Cedeño INFORMATION SYSTEMS SPECIALIST Work Phone: [facility] HospitalZpdhacznzr33-13-9124 11:13-2921UuV6% (BldA) [Mass fraction]96 %Johnna Cedeño INFORMATION SYSTEMS SPECIALIST Work Phone: [facility] HospitalMzwwignylg95-29-1692 11:13-0400Systolic blood ddiaxkzm146 mm[Hg]Johnna Cedeño INFORMATION SYSTEMS SPECIALIST Work Phone: [facility] HospitalGlmunyfmrn90-66-3577 08:15-0400Diastolic blood dhhtqlou36 mm[Hg]Agustin [facility]10-03-2025 08:15-0400Systolic blood visnnvob232 mm[Hg]Agustin [facility]09-18-2025 14:31-0400 Diastolic blood vszwzvgy06 mm[Hg][facility]-18-2025 14:31-0400Heart rate87 /minStanikaer [facility]09-18-2025 14:31-0400Systolic blood mm[Hg]Agustin [facility] 07-27-2025 14:01-0400Body ojgqmx035.5 cmAlexis Dillon DPM Work Phone: [facility] HospitalGtqejalotc11-67-6424 14:01-0400Body mass index (BMI) [Ratio]33.47 kg/i3OeixdzsdAlexis Gilmore DPM Work Phone: [facility] HospitalOwckcnufav42-98-6301 14:01-0400Body ohkfao09.01 kgNicjessica Gilmore DPM Work Phone: [facility] HospitalFhyeqlirxq81-75-8813 14:01-0400Respiratory rate16 /minAlexis Dillon DPM Work Phone: [facility] HospitalVirhbzclnx29-82-8276 14:00-0400Diastolic blood lofnegax12 mm[Hg]Champ Bell II Work Phone: [facility]09-12-2025 14:00-0400 Heart rate64 /Tierael Bell II Work Phone: 1(768)670-[address] [place], [place] [address]67909-12-2025 14:00-0400 Respiratory rate16 /minDdarvinel Bell II Work Phone: 1([phone])257-[address] [place], [place] [address]883409-12-2025 14:00-0400 SaO2% (BldA) [Mass fraction]96 %Champ Bell II Work Phone: [facility]09-12-2025 14:00-0400 Systolic blood zcqryvav186 mm[Hg]Champ Bell II Work Phone: 1(320)303-[address] [place], [place] 9567909-12-2025 10:41-0400 Body perryv399.48 cmDakathi Bell II Work Phone: [facility]09-12-2025 10:41-0400 Body cymrjnctnfs29.9 [degF]Champ Bell II Work Phone: 1(419)106-[address] [place], [place] 9567909-12-2025 10:41-0400 Body wlexxr55.6 kgDakathi Bell II Work Phone: 1(419)524-[address] [place], [place] 9567909-10-2025 11:03-0400 Body xlvywh913.5 cmSthomas Cedeño INFORMATION SYSTEMS SPECIALIST Work Phone: [facility] HospitalUqlbripaap94-13-5702 11:03-0400Body mass index (BMI) [Ratio]33.47 kg/m2HdwbpzJohnna Cedeño INFORMATION SYSTEMS SPECIALIST Work Phone: [facility] HospitalLannmoxgsl81-76-3766 11:03-0400Body .01 kgJohnna Cedeño INFORMATION SYSTEMS SPECIALIST Work Phone: [facility] HospitalGtwupcjyxr53-19-3103 11:03-0400Diastolic blood mm[Hg]Johnna Cedeño INFORMATION SYSTEMS SPECIALIST Work Phone: [facility] HospitalEvdieogygv47-93-5847 11:03-0400Heart rate67 /min Johnna Cedeño INFORMATION SYSTEMS SPECIALIST Work Phone: [facility] HospitalBryqzgmkvf87-28-3577 11:03-0400Respiratory rate16 /minSthomas Cedeño INFORMATION SYSTEMS SPECIALIST Work Phone: [facility] HospitalEytrdjxwla74-23-4921 11:03-0999EfY3% (BldA) [Mass fraction]94 %Johnna Cedeño INFORMATION SYSTEMS SPECIALIST Work Phone: [facility] HospitalTwbydkauhu61-11-1884 11:03-0400Systolic blood mm[Hg]Johnna Cedeño INFORMATION SYSTEMS SPECIALIST Work Phone: [facility] HospitalYraghjpaow73-01-9464 11:15-0400Body .5 cmAlexis Gilmore DPM Work Phone: [phone] HospitalRzavjmxrxl56-86-3671 11:15-0400Body mass index (BMI) [Ratio]31.46 kg/z3EqnxihhjAlexis Gilmore DPM Work Phone: [facility] HospitalXuuqudlmhe07-42-9481 11:15-0400Body rphtal52.02 kgAlexis Gilmore DPM Work Phone: [facility] HospitalEhptnonycb93-08-0312 11:15-0400Respiratory rate16 /minAlexis Gilmore DPM Work Phone: [facility] HospitalAvezkuywfx06-66-7390 14:13-0400Body sfnswo168.5 cmAlexis Gilmore DPM Work Phone: [facility] HospitalZzntpyldtb34-60-2135 14:13-0400Body mass index (BMI) [Ratio]31.46 kg/v9HlpeaamsAlexis Gilmore DPM Work Phone: [facility] HospitalQmpontijvo84-91-7900 14:13-0400Body .02 kgAlexis Gilmore DPM Work Phone: [facility] HospitalEexawbhjlk66-38-5581 14:13-0400Respiratory rate16 /Efra Gilmore DPM Work Phone: [facility] HospitalJyweajszqj02-49-8227 11:25-0400Diastolic blood ozspotoh79 mm[Hg]Champ Bell II Work Phone: 1(810)053-[address] [place], [place] 9567907-31-2025 11:25-0400 Heart rate63 /Britney Bell II Work Phone: 1(661)186-[address] [place], [place] 9567907-31-2025 11:25-0400 Respiratory rate16 /Britney Bell II Work Phone: [facility]07-31-2025 11:25-0400 SaO2% (BldA) [Mass fraction]95 %Champ Bell II Work Phone: [facility]07-31-2025 11:25-0400 Systolic blood enwkilzj479 mm[Hg]Champ Bell II Work Phone: 1(551)667-[address] [place], [place] 9567907-31-2025 10:55-0400 Body zzmntgfefec84.1 [degF]Champ Bell II Work Phone: [facility]07-31-2025 08:55-0400 Body asjjfo023.48 cmDakathi Bell II Work Phone: [facility]07-31-2025 08:55-0400 Body beklkv69.92 kgDakathi Bell II Work Phone: 1(532)083-[address] [place], [place] 9567907-16-2025 11:02-0400 Body plrynq730.5 Job Cronin MD Work Phone: [facility] HospitalXkoyzpareb51-94-0669 11:02-0400Body mass index (BMI) [Ratio]31.46 kg/x2HrbpudDale Cronin MD Work Phone: [facility] HospitalOfoeofyzzm00-27-5703 11:02-0400Body hcwang42.02 kgDale Cronin MD Work Phone: [facility] HospitalRymedsaukr03-83-2130 11:02-0400Diastolic blood dzqjwiwz39 mm[Hg]Dale Cronin MD Work Phone: [facility] HospitalQlczjshbko62-50-0726 11:02-0400Systolic blood mm[Hg]Dale Cronin MD Work Phone: [facility] HospitalOoedwgpjpj04-85-6567 13:47-0400Body vthkeg729.5 Bunny Cedeño INFORMATION SYSTEMS SPECIALIST Work Phone: [facility] HospitalCouqrgjwlr55-70-7077 13:47-0400Body mass index (BMI) [Ratio]32.19 kg/q3FazsuxJohnna Cedeño INFORMATION SYSTEMS SPECIALIST Work Phone: [facility] HospitalOdshozwsvs06-11-5564 13:47-0400Body imrveu79.83 kgJohnna Cedeño INFORMATION SYSTEMS SPECIALIST Work Phone: [facility] HospitalNrdlrfkpts77-51-7324 13:47-0400Diastolic blood snqufbqq33 mm[Hg]Johnna Cedeño INFORMATION SYSTEMS SPECIALIST Work Phone: [facility] HospitalNouzghzofh76-67-7654 13:47-0400Heart rate69 /min Johnna Cedeño INFORMATION SYSTEMS SPECIALIST Work Phone: [facility] HospitalRzjccjenlq06-11-1320 13:47-0400Respiratory rate16 /minSthomas Cascade INFORMATION SYSTEMS SPECIALIST Work Phone: [facility] HospitalIvarizmmvm28-13-7159 13:47-4395BkN9% (BldA) [Mass fraction]95 %Johnna Cedeño INFORMATION SYSTEMS SPECIALIST Work Phone: [facility] HospitalMlieplyyjd89-95-4511 13:47-0400Systolic blood cilrihws088 mm[Hg]Johnna Cedeño INFORMATION SYSTEMS SPECIALIST Work Phone: [facility] HospitalBtbbpgmnwo90-29-5933 14:34-0400Body okpyvi865.5 cmAlexis Gilmore DPM Work Phone: [facility] HospitalInfuncsfiw79-58-4175 14:34-0400Body mass index (BMI) [Ratio]31.64 kg/g2RrmuxoeaAlexis Gilmore DPM Work Phone: [facility] HospitalNxighqznvk62-30-5196 14:34-0400Body umqoxp06.47 kgAlexis Gilmore DPM Work Phone: [facility] HospitalVcneflwhmh54-53-4649 14:34-0400Respiratory rate16 /minAlexis Gilmore DPM Work Phone: [facility] HospitalEflbkywopo52-99-1988 11:02-0400Body dkzboc895.5 Lalitajenny Cascade INFORMATION SYSTEMS SPECIALIST Work Phone: [facility] HospitalNgrvyncedz47-60-0635 11:02-0400Body mass index (BMI) [Ratio]31.79 kg/j9NsxoheJohnna Castanedavely INFORMATION SYSTEMS SPECIALIST Work Phone: [facility] HospitalKzxwexptcc12-47-2899 11:02-0400Body .83 kgJohnna Cedeño INFORMATION SYSTEMS SPECIALIST Work Phone: [facility] HospitalTlmtasnkyw18-30-1605 11:02-0400Diastolic blood vgtqyxyi04 mm[Hg]Johnna Cedeño INFORMATION SYSTEMS SPECIALIST Work Phone: [facility] HospitalSqdvfupjsu85-11-0641 11:02-0400Heart rate61 /min Johnna Cedeño INFORMATION SYSTEMS SPECIALIST Work Phone: 1(419)483-[address] [place], [place] [address]Wsujtvdisx90-75-3636 11:02-0400Respiratory rate16 /Roshni Cedeño INFORMATION SYSTEMS SPECIALIST Work Phone: 1(488)[facility] [place], [place] [address]Fcvmfmytbz00-56-0536 11:02-6166CyC4% (BldA) [Mass fraction]93 %Johnna Cedeño INFORMATION SYSTEMS SPECIALIST Work Phone: 1(164)[facility]-5554[facility] HospitalSthoxbacoq61-01-3123 11:02-0400Systolic blood gfynfxrt633 mm[Hg]Johnna Cedeño INFORMATION SYSTEMS SPECIALIST Work Phone: 1(089)[address] [place], [place] 2753004-09-2025 12:00-0400Diastolic blood ahwlxmse47 mm[Hg]Champ Bell II Work Phone: 1(300)[address] [place], [place] 0457904-09-2025 12:00-0400 Heart rate67 /minDaniel Bell II Work Phone: 1(380)[address] [place], [place] 0457904-09-2025 12:00-0400 Respiratory rate16 /minDaniel Bell II Work Phone: 1(170)[address] [place], [place] 0457904-09-2025 12:00-0400 SaO2% (BldA) [Mass fraction]93 %Champ Bell II Work Phone: 1(276)[address] [place], [place] 0457904-09-2025 12:00-0400 Systolic blood fnmtbqua910 mm[Hg]Champ Bell II Work Phone: 1(413)[address] [place], [place] 0457904-09-2025 11:49-0400 Body .48 cmDaniel Bell II Work Phone: 1(068)[address] [place], [place] 0457904-09-2025 07:53-0400 Body [degF]Champ Bell II Work Phone: 1(690)[address] [place], [place] 0457904-09-2025 06:00-0400 Body xbjedz52.7 kgDaniel Bell II Work Phone: 1(165)[address] [place], [place] 0457904-08-2025 20:16-0400 Diastolic blood qobeymjr01 mm[Hg]Champ Bell II Work Phone: 1(026)[address] [place], [place] 0457904-08-2025 20:16-0400 Heart rate56 /Britney Bell II Work Phone: 1(503)658-[address] [place], [place] 7883404-08-2025 20:16-0400 Respiratory rate16 /Britney Bell II Work Phone: 1(164)[address]04-08-2025 20:16-0400 SaO2% (BldA) [Mass fraction]93 %Champ Bell II Work Phone: 1(373)676-[address] [place], [place] 7883404-08-2025 20:16-0400 Systolic blood etyuwavs564 mm[Hg]Champ Bell II Work Phone: 1(863)[address]04-08-2025 13:36-0400 Body .48 cmDakathi Bell II Work Phone: 1(616)[address]04-08-2025 13:36-0400 Body fzycwxebnoo49.5 [degF]Champ Bell II Work Phone: 1(039)[address]04-08-2025 13:36-0400 Body .2 kgDakathi Bell II Work Phone: 1(120)[address]02-26-2025 13:49-0500 Diastolic blood zlxotcpa85 mm[Hg]Trace Ramírez MD, PhDP [facility] 01-05-2025 13:49-0500Systolic blood mm[Hg]Trace Ramírez MD, PhD [facility] Lkvrjvxgrw22-38-5665 13:19-0500Body wpfitq966.5 Bunny Cedeño INFORMATION SYSTEMS SPECIALIST Work Phone: [facility] HospitalFtpfnsijoo77-24-4219 13:19-0500Body mass index (BMI) [Ratio]32.15 kg/m0GsthsgJohnna Cedeño INFORMATION SYSTEMS SPECIALIST Work Phone: 1(303)5530502[facility]ac-[facility] HospitalYbyvxotcqm19-63-6750 13:19-0500Body eoigno35.74 kgJohnna Cedeño INFORMATION SYSTEMS SPECIALIST Work Phone: [facility] HospitalHbvllifgwy54-43-1378 13:19-0500Diastolic blood akydiitu25 mm[Hg]Johnna Cedeño INFORMATION SYSTEMS SPECIALIST Work Phone: 1(419)483-[address] [place], [place] [address]Okerrmvemm11-75-8936 13:19-0500Heart rate65 /min Johnna Cedeño INFORMATION SYSTEMS SPECIALIST Work Phone: [facility] HospitalBsuhhvgxws76-45-6189 13:19-0500Respiratory rate16 /minSjenny Cedeño INFORMATION SYSTEMS SPECIALIST Work Phone: [facility] HospitalOwryvpecfs52-22-3688 13:19-0761SuV2% (BldA) [Mass fraction]95 %Johnna Cedeño INFORMATION SYSTEMS SPECIALIST Work Phone: [facility] HospitalNrdehpjiay91-45-2844 13:19-0500Systolic blood jbveoohd865 mm[Hg]Johnnajenny Cedeño INFORMATION SYSTEMS SPECIALIST Work Phone: [facility] HospitalZbbuddujau61-85-8573 10:57-0500Body arlaga325.5 cmNicholas Brown DPM Work Phone: 1(416)800-[address] [place], [place] [address]Jpkflbvkoe80-98-5276 10:57-0500Body mass index (BMI) [Ratio]31.46 kg/a2Pyjsdpac Brown DPM Work Phone: 1(115)408-[address] [place], [place] [address]Ksjllatwta13-88-8061 10:57-0500Body yrtveu15.02 kgNicholas Brown DPM Work Phone: 1(453)621-[address] [place], [place] [address]Obsdtmhscg93-39-1867 10:57-0500Respiratory rate18 /minNicholas Brown DPM Work Phone: [facility] HospitalDrceqsvsyu55-69-2462 09:25-0500Body aurwmb043.5 cmNicholas Brown DPM Work Phone: 1(059)987-[address] [place], [place] [address]Jihrbpysih31-93-6976 09:25-0500Body mass index (BMI) [Ratio]31.46 kg/o4Zgkrckbh Brown DPM Work Phone: 1(482)606-[address] [place], [place] [address]Kkiijgrynh00-57-5198 09:25-0500Body jcjxac82.02 kgNicholas Brown DPM Work Phone: 1(985)344-[address] [place], [place] [address]Nwdmrerfze50-40-4482 09:25-0500Respiratory rate18 /minNicholas Brown DPM Work Phone: 1(503)517-[address] [place], [place] [address]Kjzhldtpzv67-85-6706 12:01-0500Diastolic blood tcoodtbe89 mm[Hg]Trace Ramírez MD, PhDCVP Kfzxuujeab28-57-7619 12:01-0500 Systolic blood jyzewczh124 mm[Hg]Trace Ramírez MD, PhDCVP Physicians 09-30-2024 09:46-0500Body yybsxe009.5 cmManjula Hemmer PA Work Phone: [facility] HospitalSwfwoebwsu14-08-7143 09:46-0500Body mass index (BMI) [Ratio]31.57 kg/h4Dkrzf Hemmer PA Work Phone: [facility] HospitalYsbsvrlcsi03-96-7162 09:46-0500Body temperature 97.59 [degF]Manjula Hemmer PA Work Phone: [facility] HospitalLubdqfgrhm06-68-7269 09:46-0500Body .29 kgMichaelen Hemmer PA Work Phone: [facility] HospitalEjxdjwioyh71-46-8584 09:46-0500Diastolic blood vyjdaocd72 mm[Hg]Manjula Hemmer PA Work Phone: [facility] HospitalIsemfmzlus30-22-3051 09:46-0500Heart rate78 /min Manjula Hemmer PA Work Phone: [facility] HospitalIsvbniibqa61-31-7298 09:46-0500Respiratory rate16 /minMichaelen Hemmer PA Work Phone: [facility] HospitalXxajermwca64-39-0504 09:46-0373EuY3% (BldA) [Mass fraction]97 %Manjula Hemmer PA Work Phone: [facility] HospitalCrhuukfayh90-79-7349 09:46-0500Systolic blood lcuesguo265 mm[Hg]Manjula Hemmer PA Work Phone: [facility] HospitalUbktbjfaxj54-92-6630 09:21-0500Body jiejbc583.5 cmAlexis Gilmore DPM Work Phone: [facility] HospitalKsojhieyns17-13-0903 09:21-0500Body mass index (BMI) [Ratio]31.28 kg/g3TkjnolmiAlexis Gilmore DPM Work Phone: [facility] HospitalYjbtalglci89-20-5206 09:21-0500Body blknoi46.56 kgPhilomenajose Gilmore DPM Work Phone: [facility] HospitalMtxtnndvew62-95-7699 09:21-0500Respiratory rate18 /minPhilomenajose Gilmoer DPM Work Phone: [facility] HospitalFlltfzxlpb27-04-6440 09:33-0500Body .5 cmSthomas Cedeño INFORMATION SYSTEMS SPECIALIST Work Phone: [facility] HospitalWlvtzsanfj23-77-0542 09:33-0500Body mass index (BMI) [Ratio]31.28 kg/j6AoqciiJohnna Cedeño INFORMATION SYSTEMS SPECIALIST Work Phone: [facility] HospitalZrsnjwrclj78-76-9639 09:33-0500Body .56 kgJohnna Cedeño INFORMATION SYSTEMS SPECIALIST Work Phone: [facility] HospitalKfewfyxpys69-41-8026 09:33-0500Diastolic blood yysophjr87 mm[Hg]Johnna Cedeño INFORMATION SYSTEMS SPECIALIST Work Phone: [facility] HospitalDrpddsnscd54-94-7476 09:33-0500Heart rate72 /min Johnna Cedeño INFORMATION SYSTEMS SPECIALIST Work Phone: [place] [address]Hkmsicmvws95-08-7027 09:33-7030IlP3% (BldA) [Mass fraction]96 %Johnna Cedeño INFORMATION SYSTEMS SPECIALIST Work Phone: [facility] HospitalApjantrppw83-57-4853 09:33-0500Systolic blood jssslsgy795 mm[Hg]Johnna Cedeño INFORMATION SYSTEMS SPECIALIST Work Phone: [facility] HospitalCufsggauan68-20-3116 16:14-0400Diastolic blood kqykrwcp44 mm[Hg]Micheal Nova MANAGER HEMATOLOGY-CINDER PIT WORKER Work Phone: [facility]09-10-2024 16:14-0400 Systolic blood arfqqruw923 mm[Hg]Micheal Priceuria MANAGER HEMATOLOGY-CINDER PIT WORKER Work Phone: [facility]09-10-2024 16:10-0400 Body rgivbg121.5 cmMicheal Priceuria MANAGER HEMATOLOGY-CINDER PIT WORKER Work Phone: [facility]09-10-2024 16:10-0400 Body mass index (BMI) [Ratio]29.63 kg/e5Wunmkt Rohini MANAGER HEMATOLOGY-CINDER PIT WORKER Work Phone: [facility]09-10-2024 16:10-0400 Body uxfdjw30.48 kgMahadr Rohini MANAGER HEMATOLOGY-CINDER PIT WORKER Work Phone: [facility]09-10-2024 16:10-0400 Heart rate76 /minMahadr Rohini MANAGER HEMATOLOGY-CINDER PIT WORKER Work Phone: [facility]09-10-2024 16:10-0400 Respiratory rate18 /minMahadr Rohini MANAGER HEMATOLOGY-CINDER PIT WORKER Work Phone: [facility]08-30-2024 11:52-0400 Body .5 cmAlexis Gilmore DPM Work Phone: [facility] HospitalXsxprsysie75-46-3041 11:52-0400Body mass index (BMI) [Ratio]29.45 kg/i0EtsqhooyAlexis Gilmore DPM Work Phone: [facility] HospitalBnuapookgd75-60-8206 11:52-0400Body vyqdfb60.03 kgAlexis Gilmore DPM Work Phone: [facility] HospitalCywhsyztzg33-78-7442 11:52-0400Diastolic blood qkugopai34 mm[Hg]Alexis Gilmore DPM Work Phone: [facility] HospitalGudtaptiit45-51-8431 11:52-0400Heart rate78 /min Alexis Gilmore DPM Work Phone: [facility] HospitalLjweeouqgs87-04-8639 11:52-0400Systolic blood wlyyjlya381 mm[Hg]Alexis Gilmore DPM Work Phone: [facility] HospitalLxujjvrlnj01-99-3916 14:17-0400Diastolic blood godjlxix88 mm[Hg]Trace Ramírez MD, PhDCVP Cxkurtmmcn17-72-6912 14:17-0400 Systolic blood mm[Hg]Trace Ramírez MD, PhDCVP Physicians 06-22-2024 07:49-0400Body klvifdecvvg77.9 [degF]Nely Curry MD Work Phone: 1216)[address]08-13-2024 07:49-0400 Diastolic blood gwuhfaqq05 mm[Hg]Nely Curry MD Work Phone: 1(216)[address] [place], [place] 1473508-13-2024 07:49-0400 Heart rate76 /Arsh Curry MD Work Phone: 1(216)[address] [place], [place] 1473508-13-2024 07:49-0400 Respiratory rate19 /Arsh Curry MD Work Phone: 1(216)[address] [place], [place] 1473508-13-2024 07:49-0400 SaO2% (BldA) [Mass fraction]91 %Nely Curry MD Work Phone: 1(216)[address] [place], [place] 1473508-13-2024 07:49-0400 Systolic blood mm[Hg]Nely Curry MD Work Phone: 1(216)580-[address] [place], [place] 5561208-12-2024 17:12-0400 Body lkkonl299.5 Conor Curry MD Work Phone: 1([address]08-12-2024 17:12-0400 Body mass index (BMI) [Ratio]29.26 kg/a5CbxjhNely Curry MD Work Phone: [address]08-12-2024 17:12-0400 Body .58 kgNely Curry MD Work Phone: 1(216)0-[address] [place], [place] 5561208-06-2024 15:12-0400 Body wqamht064.5 cmMargareth Escamilla DO Work Phone: 1(497)646-[address] [place], [place] 5973908-06-2024 15:12-0400 Body mass index (BMI) [Ratio]30.18 kg/a4FznvpMargareth Escamilla DO Work Phone: 1(554)9-[address] [place], [place] 5973908-06-2024 15:12-0400 Body fohovr29.84 kgMehdi Shishehbor DO Work Phone: [facility]08-06-2024 15:12-0400 Diastolic blood chiotakx48 mm[Hg]Margareth Shishehbor DO Work Phone: [facility]08-06-2024 15:12-0400 Heart rate91 /minMehdi Shishehbor DO Work Phone: [facility]08-06-2024 15:12-0400 Systolic blood ynlfmilm888 mm[Hg]Margareth Shishehbor DO Work Phone: [facility]07-10-2024 12:35-0400 Diastolic blood kjjnkwil92 mm[Hg]II Champ Bell Work Phone: 1(346)[address]07-10-2024 12:35-0400 Heart rate64 /HeathLucero Bell Work Phone: 1(329)[address]07-10-2024 12:35-0400 Respiratory rate16 /HeathLucero Bell Work Phone: 1(667)[address]07-10-2024 12:35-0400 SaO2% (BldA) [Mass fraction]96 %II Champ Bell Work Phone: 1(461)147-[address] [place], [place] 7883407-10-2024 12:35-0400 Systolic blood qzlewouy382 mm[Hg]II Champ Bell Work Phone: 1(033)521-[address] [place], [place] 7883407-10-2024 10:00-0400 Inhaled oxygen flow rate2 L/HeathLucero Bell Work Phone: 1(245)[address]07-10-2024 08:33-0400 Body yepqlj919.48 cmII Champ Bell Work Phone: 1(373)174-[address] [place], [place] 7883407-10-2024 08:33-0400 Body jzqcam47.84 kgII Champ Bell Work Phone: 1(899)878-[address] [place], [place] 7883407-09-2024 10:46-0400 Body .48 cmII Champ Bell Work Phone: [facility]07-09-2024 10:46-0400 Body mass index (BMI) [Ratio]29.6 kg/m2II Champ Bell Work Phone: [facility]07-09-2024 10:46-0400 Body mgwjrgtxaob44.6 [degF]II Champ Bell Work Phone: [facility]07-09-2024 10:46-0400 Body .48 kgII Champ Bell Work Phone: 1(084)948-[address] [place], [place] 9567907-09-2024 10:46-0400 Diastolic blood cueuiita53 mm[Hg]II Champ Bell Work Phone: 1(004)771-[address] [place], [place] 9567907-09-2024 10:46-0400 Heart rate63 /minII Champ Bell Work Phone: 1(649)056-[address] [place], [place] 9567907-09-2024 10:46-0400 SaO2% (BldA) [Mass fraction]96 %II Champ Bell Work Phone: [facility]07-09-2024 10:46-0400 Systolic blood kvcztima650 mm[Hg]II Champ Bell Work Phone: [facility]02-01-2024 16:15-0500 Body .5 cmAlexis Dillon DPM Work Phone: [facility] HospitalRolkwgoqwq88-26-9482 16:15-0500Body mass index (BMI) [Ratio]29.26 kg/m8AqxwndgqAlexis Gilmore DPM Work Phone: [facility] HospitalGcrovoqfat18-93-5017 16:15-0500Body ogrnye86.58 kgAlexis Gilmore DPM Work Phone: [facility] HospitalSvsyzypjsr86-66-5984 16:15-0500Diastolic blood efuwqwjs67 mm[Hg]Alexis Gilmore DPM Work Phone: [facility] HospitalGqenlwjsek32-77-4284 16:15-0500Heart rate77 /min Alexis Gilmore DPM Work Phone: [facility] HospitalCcmleizdlw09-60-1008 16:15-0500Systolic blood dmvnmhaj440 mm[Hg]Alexis Gilmore DPM Work Phone: [facility] HospitalIieymngrjn74-52-9852 10:30-0400Body kmkdyf409.48 cmSabrina Borden Other [facility] Other 04-12-2023 10:30-0400Body mass index (BMI) [Ratio] 28.35 kg/x8MyspzcSabrina Borden Other [facility] Other 04-12-2023 10:30-0400Body mqxihyvvadg65.8 [degF]Sabrina Borden Other [facility] Other 04-12-2023 10:30-0400Body sctmto85.31 kgSabrina Borden Other [facility] Other 04-12-2023 10:30-0400Diastolic blood qawwqbqt09 mm[Hg] Sabrina Borden Other [facility] Other 04-12-2023 10:30-0186KiW8% (BldA) [Mass fraction]95 % Sabrina Borden Other [facility] Other 04-12-2023 10:30-0400Systolic blood oiyyymja947 mm[Hg] Sabrina Borden Other [facility] Other 03-06-2023 16:30-0500Diastolic blood ocodzuwa58 mm[Hg] II Champ Bell Work Phone: 1(419)483-[address] [place], [place] 7883403-06-2023 16:30-0500 Heart rate63 /Ky Bell Work Phone: 1(629)153-[address] [place], [place] 7883403-06-2023 16:30-0500 Respiratory rate16 /Ky Bell Work Phone: 1(158)203-[address] [place], [place] 7883403-06-2023 16:30-0500 SaO2% (BldA) [Mass fraction]95 %II Champ Bell Work Phone: 1(061)747-[address] [place], [place] 7883403-06-2023 16:30-0500 Systolic blood fglhqunt492 mm[Hg]II Champ Bell Work Phone: 1(890)428-[address] [place], [place] 7883403-06-2023 14:00-0500 Inhaled oxygen flow rate2 L/Ky Bell Work Phone: 1(414)398-[address] [place], [place] 7883403-06-2023 11:42-0500 Body kcobfr579.48 cmII Champ Bell Work Phone: 1(741)039-[address] [place], [place] 7883403-06-2023 11:42-0500 Body .49 kgII Champ Bell Work Phone: 1(077)187-[address] [place], [place] 7883403-02-2023 08:30-0500 Body zgfauh248.48 cmMabrianne Mathew Other [facility] Other 03-02-2023 08:30-0500Body mass index (BMI) [Ratio] 28.35 kg/h5FgvjiivGeo Mathew Other [facility] Other 03-02-2023 08:30-0500Body lmchliqowkr64.8 [degF] Geo Mathew Other [facility] Other 03-02-2023 08:30-0500Body ikpggh78.31 kgMattarash Mathew Other [facility] Other 03-02-2023 08:30-0500Diastolic blood mm[Hg] [facility] Other 03-02-2023 08:30-7204BhU6% (BldA) [Mass fraction]95 % Geo Mathew Other [facility] Other 03-02-2023 08:30-0500Systolic blood gkydhihx263 mm[Hg] Geo Mathew Other [facility] Other 11-11-2021 13:00-0500Body pkjiwc773.48 cmMattarash Mathew Other [facility] Other 11-11-2021 13:00-0500Body mass index (BMI) [Ratio] 31.09 kg/y4ZlfdvlyGeo Mathew Other [facility] Other 11-11-2021 13:00-0500Body qdinvo79.11 kgMattarash Mathew Other [facility] Other 11-11-2021 13:00-0500Diastolic blood oqgrwzaf07 mm[Hg] Geo Mathew Other [facility] Other 11-11-2021 13:00-0500Systolic blood rwgzfubf304 mm[Hg] Geo Mathew Other [facility] Other Encounters Encounter DateEncounter TypeCare ProviderFacilityStart: 09-20-2025 End: 38-14-6093[place] flowsShayne Cedeño INFORMATION SYSTEMS SPECIALIST Work Phone: [facility] MedinceStart: 09-20-2025 End: 00-80-4484Bafvca Stacy Cedeño INFORMATION SYSTEMS SPECIALIST Work Phone: [facility] MedinceStart: 09-20-2025 End: 95-10-3335Uptequ outpatient visit 25 minutesJohnna Cedeño INFORMATION SYSTEMS SPECIALIST Work Phone: [facility] MedinceComment on above:Acute non- recurrent pansinusitis (Primary Dx)Start: 09-20-2025 End: 77-34-0274zukvwlohlrNVLMDT M SHIVELYNot AvailableStart: 09-15-2025 End: 19-48-0196Dfghbu outpatient visit 15 minutesAlexis Gilmore DPM Work Phone: [facility] CI PODIATRYComment on above:Achilles tendinitis, right leg (Primary Dx); Contracture of right ankle; Type 2 diabetes mellitus with hyperglycemia, with long-term current use of insulin (HCC); Pain due to onychomycosis of toenails of both feetStart: 09-15-2025 End: 36-15-7868wqumeyajkdTACZNKAO A BROWNNot AvailableStart: 09-15-2025 End: 50-66-5519Kvxqhu Edgar Gilmore DPM Work Phone: [facility] CI PODIATRYStart: 09-15-2025 End: 47-06-3752Afsuae Edgar Gilmore DPM Work Phone: [facility] CI PODIATRYStart: 01-66-6634hpovgviuikOmyxrqMountain View Hospitaltart: 08-24-2025 End: 14-81-5489Ihsnrv Stacy Cedeño INFORMATION SYSTEMS SPECIALIST Work Phone: [facility] MedinceStart: 08-24-2025 End: 82-52-7116Zgsumf Stacy Cedeño INFORMATION SYSTEMS SPECIALIST Work Phone: [facility] Moi Clark MedinceStart: 08-24-2025 End: 75-52-4090Zcrynw outpatient visit 25 minutesJohnna Cedeño INFORMATION SYSTEMS SPECIALIST Work Phone: [facility]oms [facility] HospitaleComment on above:Abnormal breast exam (Primary Dx); Encounter for screening mammogram for malignant neoplasm of breast; Type 2 diabetes mellitus with diabetic chronic kidney disease (HCC); Chronic kidney disease, stage 3b ([facility]-H[facility]); Acute non-recurrent pansinusitisStart: 08-24-2025 End: 24-58-5490qttbofgmpoAMFVYG M SHIVELYNot AvailableStart: 08-12-2025 End: 85-68-9972Hdvefh outpatient visit 25 minutesAgustin Phamweiki Work Phone: [employer] [place]edoStart: 04-18-5559nqeyrzfdtfRwmyqp Al Shweiki [facility] InstituteStart: 96-70-6878kqtycbfqfuVrykhp Al ShweikiDouglasville Eye InstituteStart: 07-28-2025 End: 25-28-8190Lduzdb outpatient visit 25 minutesSaneeru Brock Shweiki Work Phone: [employer] [place]Start: 53-76-8997okmonigikdCinkwv Al ShweAdams County [facility] InstituteStart: 07-27-2025 End: 53-95-7421Vnomox follow up visit related to original Alexandru Gilmore DPM Work Phone: noms [facility]inoza PodiatryComment on above: Contracture of right ankle (Primary Dx); Achilles tendinitis, right leg; Type 2 diabetes mellitus with hyperglycemia, with long-term current use of insulin ([facility])Start: 07-27-2025 End: 64-12-8114aolpnammkwTCJEWEKD A BROWNNot AvailableStart: 07-27-2025 End: 98-87-5198Poejqm Edgar Gilmore DPM Work Phone: noms [facility] PodiatryStart: 07-27-2025 End: 88-01-4623Rxbuhm Edgar Gilmore DPM Work Phone: noms [facility] PodiatryStart: 07-22-2025 End: 39-77-1005Rfqhoohh Result EncounterAlexis Gilmore DPM Work Phone: noms External Department UnsolicitedStart: 07-22-2025 End: 47-92-2668Owjxwcyf Result EncounterAlexis Gilmore DPM Work Phone: noms External Department UnsolicitedStart: 07-22-2025 End: 29-16-4897Zpnxsyczf to same day surgery corneliusAlexis Gilmore DPM-[facility] CampusStart: 07-22-2025 End: 46-72-0914eyigvexqzjSjnnaf Berry II Work Phone: [facility] Work Phone: Start: 07-20-2025 End: 54-77-3158Okhnqy Stacy Cedeño INFORMATION SYSTEMS SPECIALIST Work Phone: noms [facility] MedinceStart: 07-20-2025 End: 99-96-0706Elfodlrohan Cedeño INFORMATION SYSTEMS SPECIALIST Work Phone: noms [facility] MedinceStart: 07-20-2025 End: 24-61-6299Lkgoia outpatient visit 25 minutesJohnna Cedeño INFORMATION SYSTEMS SPECIALIST Work Phone: noms Moi Family MedinceComment [...] single episode, in full remissionStart: 07-20-2025 End: 12-72-4525Saqszhwroquy Masood Cedeño INFORMATION SYSTEMS SPECIALIST Work Phone: [facility] Work Phone: Start: 07-20-2025 End: 79-61-9830sobbvwivphMHTVEZ M SHIVELYNot AvailableStart: 07-19-2025 End: 93-90-5895Nycqrsuq Result EncounterNicholjose Gilmore DPM Work Phone: noms External Department UnsolicitedStart: 07-19-2025 End: 47-82-3489Ynrthrbs Result EncounterPhilomenajose Gilmore DPM Work Phone: noms External Department UnsolicitedStart: 07-19-2025 End: 38-38-1929Cssotrr encounter procedureAlexis Gilmore TKT-Wad-Zusgxmpr Testing Work Phone: Start: 07-19-2025 End: 71-76-7488yrliymaumoByftyq Bell II Work Phone: [facility] Work Phone: Start: 99-92-1405Dzonlretd for preprocedural laboratory examinationAlexis Gant [facility] GroupStart: 07-18-2025 End: 65-32-2571wvdklhhhpbLLFECLCK A BROWNNot AvailableStart: 07-18-2025 End: 71-68-1924Lweuuc outpatient visit 25 minutesAlexis Berry Dillon DPM Work Phone: noms Ivy Espinoza PodiatryComment on above: Contracture of right ankle (Primary Dx); Achilles tendinitis, right leg; Diabetes mellitus due to underlying condition with diabetic polyneuropathy, unspecified whether correction insulin use (HCC)Start: 78-59-7886ximpijzirn Trace [facility] InstituteStart: 07-12-2025 End: 88-19-5929Vwfjzu Vincent Delcid DO Work Phone: noms [facility] EyeStart: 07-12-2025 End: 05-67-8138Csmpfl Vincent Delcid DO Work Phone: noms [facility] EyeStart: 07-12-2025 End: 07-04-2898xjfszpjorfYADORLUZ D ZAHLERNot AvailableStart: 06-20-2025 End: 94-69-8323Nuvvpe follow up visit related to original Marcus Fox MD Work Phone: noms Surgical AssociatesComment on above:History of colon polyps (Primary Dx); Upper abdominal pain; Iron deficiency anemia, unspecified iron deficiency anemia type; Chronic anticoagulation; Other chronic gastritis without hemorrhageStart: 06-20-2025 End: 45-22-6704yyarlwakzbLIYWPG VARGAS VNot AvailableStart: 06-16-2025 End: 75-96-0327Vflkzy outpatient visit 15 minutesAlexis Gilmore DPM Work Phone: noms CI PODIATRYComment on above:Achilles tendinitis, right leg (Primary Dx); Contracture of right ankle; Diabetes mellitus due to underlying condition with diabetic polyneuropathy, unspecified whether intermediate project manager insulin use (HCC); Pain due to onychomycosis of toenails of both feetStart: 06-16-2025 End: 09-08-0932kjojgvrysrWOFQHZUI A BROWNNot AvailableStart: 06-16-2025 End: 39-69-5170Glkwdj Edgar Gilmore DPM Work Phone: noms CI PODIATRYStart: 06-16-2025 End: 48-64-4567Ilbwlbping Gilmore DPM Work Phone: noms CI PODIATRYStart: 06-09-2025 End: 69-10-7345Vxfghnzn Result Fatemeh Fox MD Work Phone: noms External Department UnsolicitedStart: 06-09-2025 End: 05-85-7026Qyrrberi Result Fatemeh Cronin MD Work Phone: noms External Department UnsolicitedStart: 06-09-2025 End: 28-91-4349Wskzzaoqj to same day surgery Byron Fox [facility] CampusStart: 06-09-2025 End: 95-41-1287sqlyycggxtIyezjk Berry II Work Phone: [facility] Work Phone: Start: 05-30-2025 End: 09-95-3894bwyjserkutAIQKKNMercy Health [facility] Start: 05-30-2025 End: 29-04-3499Urgeinwba for preprocedural cardiovascular examinationGEORSt. Francis Hospitaltart: 05-25-2025 End: 87-32-7401Vjkaub outpatient new 45 minutesDale Fox MD Work Phone: noms ST GENSComment on above:Iron deficiency anemia, unspecified iron deficiency anemia type (Primary Dx); History of colon polyps; Upper abdominal pain; Screening for colon cancer; Chronic anticoagulationStart: 05-25-2025 End: 53-22-0116qqjnajpqauVUYHTX VARGAS VNot AvailableStart: 05-09-2025 End: 23-60-8184Mdijggaihe Reny Mckinley MD Work Phone: Referring PhysicianComment on above:Iron deficiency anemia, unspecified iron deficiency anemia type (Primary Dx)Start: 04-29-2025 End: 54-12-8636rxhyvgnydsZVNM ALEYDADUfabioWyandot Memorial Hospitaltart: 04-26-2025 End: 79-40-4806qkzdesezbqARSZQPAAUS E MALENFUniversity Hospitals Samaritan Medical Centertart: 04-14-2025 End: 82-51-3845Ufrdsb Stacy Cedeño INFORMATION SYSTEMS SPECIALIST Work Phone: NOMS CI FMStart: 04-14-2025 End: 68-19-1333Yzmaib flowsShayne Cedeño INFORMATION SYSTEMS SPECIALIST Work Phone: NOMS CI FMStart: 04-14-2025 End: 92-41-1167Qqkei of hemosiderin, quantShjozef Cedeño INFORMATION SYSTEMS SPECIALIST Work Phone: NOMS HealthcareStart: 04-14-2025 End: 55-63-1297Cghauog encounter procedureSthomas Cedeño INFORMATION SYSTEMS SPECIALIST Work Phone: NOMS CI FMComment on above:Medicare annual wellness visit, subsequent (Primary Dx); 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 (CMS/HCC); Benign essential hypertension (CMS/HCC); Diverticulosis of colon; Generalized anxiety disorder ([facility]); Irritable bowel syndrome with both constipation and diarrhea; Mixed hyperlipidemia ([facility]); Paroxysmal atrial fibrillation ([facility]); Peripheral vascular disease ([facility]); Polyneuropathy due to type 2 diabetes mellitus ([facility]); Poorly controlled diabetes mellitus ([facility]); 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 associated with type 2 diabetes mellitus ([facility]); Type 2 diabetes mellitus with hyperglycemia, with long-term current use of insulin ([facility]); Osteopenia, unspecified location; Asthma without status asthmaticus without complication, unspecified asthma severity, unspecified whether persistent ([facility]); Arteriosclerosis of arterial coronary artery bypass graft ([facility]); Estrogen deficiency; Chronic migraine with aura without status migrainosus, not intractable ([facility]); Overweight; 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 ([facility]); 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, with long-term current use of insulin, unspecified retinopathy severity ([facility]); Bilateral carotid artery stenosis; New onset of congestive heart failure ([facility]); NSTEMI (non-ST elevated myocardial infarction) ([facility]); Screening for thyroid disorder; Routine general medical examination at health care facility; Screening for colon cancerStart: 04-14-2025 End: 58-38-1936fvgczwleoaRWTGTLAmelia Abbott AvailableStart: 03-30-2025 End: 07-54-3032Nxkddo outpatient visit 15 minutesAlexis Gilmore DPM Work Phone: NOMS MS PODComment on above:Contracture of right ankle (Primary Dx); Achilles tendinitis, right leg; Diabetes mellitus due to underlying condition with diabetic polyneuropathy, unspecified whether correction insulin use ([facility]); Pain due to onychomycosis of toenails of both feetStart: 03-30-2025 End: 13-35-2889ioahvfhcvuGMGEDVZR A BROWNNot AvailableStart: 03-30-2025 End: 73-94-8932Znifql flowsheetAlexis Gilmore DPM Work Phone: NOMS SC PODStart: 03-30-2025 End: 56-13-7031Rtdfwo flowsheetAlexis Gilmore DPM Work Phone: noms MS PODStart: 03-10-2025 End: 92-03-6470Xpcqdwo encounter procedureChamp Bell II Work Phone: [facility] Work Phone: Start: 03-10-2025 End: 01-76-5935nvnqghtiduGevbym Bell II Work Phone: [facility] Work Phone: Start: 03-03-2025 End: 26-79-8653Lrwdaldcq Result EncounterChamp Bell MD Work Phone: noms External Department UnsolicitedStart: 03-03-2025 End: 87-37-0028Yfhppehvz Result EncounterChamp Bell MD Work Phone: noms External Department UnsolicitedStart: 03-02-[address] Charles Hospitaltart: 03-01-2025 End: 69-20-5151Xhqdxs outpatient visit 15 minutesJohnna Cedeño INFORMATION SYSTEMS SPECIALIST Work Phone: noms CI FMComment on above:Encounter for screening mammogram for breast cancer (Primary Dx); Type 2 diabetes mellitus with hyperglycemia, with long-term current use of insulin (CMS/HCC); Rheumatoid arthritis, unspecified; Vitreous hemorrhage, left eye (CMS/HCC); Vitreous hemorrhage, right eye (CMS/HCC); Atherosclerosis of moapa arteries of right leg with ulceration of thigh (CMS/HCC)Start: 03-01-2025 End: 61-78-1045tqjrtmxthhWICSOA M SHIVELYNot AvailableStart: 02-21-2025 Evaluation and management of inpatientMUHAMMAD Veterans Health Administrationtart: 93-06-2536Lyaayadqeo and management of inpatientABRAZO ARIZONA HEART HOSPITALI [facility] Centertart: 02-18-2025 End: 31-08-8016Dczvxrhpj Result EncounterGeneric External Data ProviderNOMS External Department UnsolicitedStart: 02-18-2025 End: 77-37-6318Jkwaekyax Result EncounterGeneric External Data ProviderNOMS External Department UnsolicitedStart: 84-09-8269Wdqnmqjflq and management of inpatientANDREW JETUniversity Hospitals Cleveland Medical Centertart: 02-18-2025 End: 51-56-0597Trzmqcwlhs and management of inpatientJEFFERY KATKOOhioHealth Mansfield Hospitaltart: 02-15-2025 End: 66-96-2038hkhgeagksxFsejhuylr E DoamekporFacility:[facility] Trumbulltart: 02-15-2025 End: 75-33-0052Vhdraarwxh and management of inpatientChamp Bell II Work Phone: [facility] Work Phone: Start: 02-15-2025 End: 44-31-4727axdfvazpeoe encounterDakathi Bell II Work Phone: [facility] Work Phone: Start: 02-15-2025 End: 02-67-1268Smpqkv flowsJd Delcid DO Work Phone: noms NB OPHTStart: 02-15-2025 End: 87-36-2629Qgnkdu flowsheetTeena Delcid DO Work Phone: noms NB OPHTStart: 02-15-2025 End: 85-99-2253ococxtobndAJHHUOBQ D ZAHLERNot AvailableStart: 02-03-2025 End: 34-47-3709QeukepKxeejn B Berry MD Work Phone: noms POPULATION HEALTHComment on above:Type 2 diabetes mellitus with hyperglycemia, with long-term current use of insulin ([facility]) Start: 01-05-2025 End: 97-89-0070Adhwugygu identifierTrace Ramírez Work Phone: [facility] [place]edoStart: 01-05-2025 End: 78-58-0952Knefdjy R Petersen Work Phone: [facility] [place]edoStart: 23-44-4498xxoipowzepEtxdztr Charleen MelchorenCincinnatlucero Eye InstituteStart: 12-30-2024 End: 81-25-3216Zzaugu Edgar Gilmore DPM Work Phone: noMS CI PODIATRYStart: 12-30-2024 End: 49-87-3391Yozgdm Edgar Gilmore DPM Work Phone: noms CI PODIATRYStart: 12-30-2024 End: 50-07-3834Vutduc outpatient visit 25 minutesJohnna Cedeño NP Work Phone: NOMS CI FMComment on above:Paroxysmal atrial fibrillation (CMS/HCC) (Primary Dx); Benign essential hypertension (CMS/HCC); Type 2 diabetes mellitus with hyperglycemia, with long-term current use of insulin (CMS/HCC); 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 (CMS/HCC); S/P CABG x 4; Encounter for screening mammogram for malignant neoplasm of breast; Type 2 diabetes mellitus with foot ulcer (CODE) (CMS/HCC); Non-pressure chronic ulcer of other part of left foot with fat layer exposed (CMS/HCC)Start: 12-30-2024 End: 83-00-6171arckxqggnuGVJFCWAmelia Abbott AvailableStart: 12-30-2024 End: 67-26-6155Jwidsi outpatient visit 15 minutesAlexis Gilmore DPM Work Phone: NOMS CI PODIATRYComment on above:Heel spur, right (Primary Dx); Achilles tendinitis, right leg; Contracture of right ankleStart: 12-30-2024 End: 17-95-9321fxtyhqjjucDZETCZAP A BROWNNot AvailableStart: 12-20-2024 End: 21-76-2556jzlyrpzmiiPUIWEH [facility] Start: 12-18-2024 End: 49-81-5253Sdbjhukgr Result EncounterGeneric External Data ProviderNOMS External Department UnsolicitedStart: 12-18-2024 End: 79-53-4587Rgxmfutfc Result EncounterGeneric External Data ProviderNOMS External Department UnsolicitedStart: 12-09-2024 End: 30-27-3012Bxaqid Edgar Berry Dillon DPM Work Phone: noms CI PODIATRYStart: 12-09-2024 End: 37-32-8670Oqzold antelmofrantzGalileojessica Berry Dillon DPM Work Phone: noms CI PODIATRYStart: 12-09-2024 End: 66-44-0161xrhwzmzrvpRFEJZLVS A BROWNNot AvailableStart: 12-09-2024 End: 75-39-7567Kwnmnl outpatient visit 15 minutesNicjessica Gilmore DPM Work Phone: noms CI PODIATRYComment on above:Heel spur, right (Primary Dx); Diabetes mellitus due to underlying condition with diabetic polyneuropathy, unspecified whether intermediate project manager insulin use ([facility]); Pain due to onychomycosis of toenails of both feet; Onychomycosis; PVD (peripheral vascular disease) ([facility]); Achilles tendinitis, right leg; Contracture of right ankleStart: 10-21-2024 End: 54-75-1240Clujou outpatient visit 25 minutesTrace Ramírez Work Phone: [facility] [place]edoStart: 59-38-1408bsvfqerutuRshtmyjJeanie Jaramillo Eye InstituteStart: 10-15-2024 End: 83-87-9066Twwvfd flowsJd Delcid DO Work Phone: NOXU NB OPHTStart: 10-15-2024 End: 45-20-5496Oatufd flowsJd Delcid DO Work Phone: NODB NB OPHTStart: 10-15-2024 End: 23-86-5737Plzdlz follow up visit related to original Valentín Delcid DO Work Phone: noms NB OPHTComment on above:Pseudophakia (Primary Dx) Start: 10-15-2024 End: 52-96-4087aqlmpcywmrDMDUOJCBTete Jacob AvailableStart: 09-30-2024 End: 93-19-7110Nmwmym Edgar Gilmore DPM Work Phone: NOMS CI PODIATRYStart: 09-30-2024 End: 93-68-0243Frvwyj Edgar Gilmore DPM Work Phone: NOMS CI PODIATRYStart: 09-30-2024 End: 16-84-7107Mykghf outpatient visit 15 Irma CUEVAS Work Phone: NOMS CI FMComment on above:Acute asthmatic bronchitis (CMS/HCC) (Primary Dx); Need for vaccination; Hypotension, unspecified hypotension typeStart: 09-30-2024 End: 46-13-6998Gkmlhn outpatient visit 10 Chanell Gilmore DPM Work Phone: noMS CI PODIATRYComment on above:Dry gangrene (CMS/HCC) (Primary Dx); PVD (peripheral vascular disease) (CMS/HCC); Diabetes mellitus due to underlying condition with diabetic polyneuropathy, unspecified whether correction insulin use (CMS/HCC); Pain due to onychomycosis of toenails of both feetStart: 09-30-2024 End: 05-97-1876tistthmkjyNGFCFLizz Woodward AvailableStart: 09-22-2024 End: 47-38-6445Ozsihm outpatient visit 25 minutesJohnna Cedeño NP Work Phone: NOMS CI FMComment on above:Acute asthmatic bronchitis (CMS/HCC) (Primary Dx); Type 2 diabetes mellitus with hyperglycemia, with long-term current use of insulin (CMS/HCC); Polyneuropathy due to type 2 diabetes mellitus (CMS/HCC); Acute coughStart: 09-22-2024 End: 55-27-3325drwsrjhgmuIUJGOXmAelia Abbott AvailableStart: 09-17-2024 End: 06-14-6621Czxqzs flowsheetJonathan D Lianaer DO Work Phone: noms NB OPHTStart: 09-17-2024 End: 14-56-5073Nnidum flowsheetJonathan Ml Estradahler DO Work Phone: NORD NB OPHTStart: 09-17-2024 End: 64-99-3307Abczop follow up visit related to original pxJonathan D aNtaliehler DO Work Phone: NOMS NB OPHTComment on above:Pseudophakia (Primary Dx) Start: 09-07-2024 End: 79-76-0095Lsbfdy flowsheetJonathan D Nataliehler DO Work Phone: NODJ NB OPHTStart: 09-07-2024 End: 38-12-8970Zpniqu flowsheetJonathan Ml Estradahler DO Work Phone: NOWM NB OPHTStart: 09-07-2024 End: 26-17-9171Qfuxrl follow up visit related to original pxJonathan D Lianaer DO Work Phone: NORF NB OPHTComment on above:Pseudophakia (Primary Dx) Start: 08-31-2024 End: 16-54-1663Ryzgxd flowsheetJonathan D Lianaer DO Work Phone: NOIT NB OPHTStart: 08-31-2024 End: 11-86-6687Lomvle flowsheetJonathan D Nataliehler DO Work Phone: NODO NB OPHTStart: 08-31-2024 End: 30-40-0453Romfyj follow up visit related to original pxJonathan D Lianaer DO Work Phone: NOMS NB OPHTComment on above:Pseudophakia (Primary Dx); Cataract mature, total senileStart: 08-24-2024 End: 86-37-8170Cinyry flowsheetJonathan D Nataliehler DO Work Phone: NOMS NB OPHTStart: 08-24-2024 End: 89-15-2033Ujbdxu flowsheetTeena Gaineser DO Work Phone: noms OPHTStart: 08-24-2024 End: 00-21-0382Dzgjbl follow up visit related to original Valentín Delcid DO Work Phone: noms OPHTComment on above:Pseudophakia (Primary Dx) Start: 08-18-2024 End: 84-99-4001ifnbnvelywGAOWVBDPremier Health Upper Valley Medical Centertart: 08-04-2024 End: 28-32-5580Vzxwvmfzx identifierTrace Ramírez Work Phone: [facility] Medical CenteredoStart: 08-04-2024 End: 58-41-1328WcirwfdTrace Ramírez Work Phone: RVV [facility] CenteredoStart: 07-20-2024 End: 76-02-8055mxwhyqlngnSCTWEVA [facility] AmbulatoryStart: 07-20-2024 End: 46-34-3392Twlzki outpatient visit 25 minutesMamargot SORIA Work Phone: [facility] MatherComment on above:S/P peripheral artery angioplasty (Primary Dx); PAD (peripheral artery disease) ([facility])Start: 07-20-2024 End: 37-15-6347Fxndihtjng hospital visit by physician[address] MatherComment on above:PAD (peripheral artery disease) ([facility]); S/P peripheral artery angioplastyStart: 07-20-2024 End: 49-10-9585cifpbvqzmyUODWOUC Medical Centertart: 07-13-2024 End: 06-22-4124Ggxnlg flowsheetTeena Gaineser DO Work Phone: noms OPHTStart: 07-13-2024 End: 29-67-0001Xaeeal flowsheetTeena Delcid DO Work Phone: noms ELSIE OPHTStart: 07-13-2024 End: 47-68-8039Syknse outpatient visit 25 minutesTeena Delcid DO Work Phone: noms ELSIE OPHTComment on above:Cataract mature, total senile (Primary Dx)Start: 07-09-2024 End: 08-05-7170Dlthze flowsheetNicholas Berry Brown DPM Work Phone: noMS MS PODStart: 07-09-2024 End: 05-02-8082Kglvnz flowsheetNicholas A Brown DPM Work Phone: noms MS PODStart: 07-09-2024 End: 82-00-0519Fkodsg outpatient visit 15 minutesNicjessica Smart Brown DPM Work Phone: noms MS PODComment on above:Dry gangrene (CMS/HCC) (Primary Dx); PVD (peripheral vascular disease) (CMS/HCC); Diabetes mellitus due to underlying condition with diabetic polyneuropathy, unspecified whether correction insulin use (CMS/HCC); Onychomycosis; Toe pain, bilateralStart: 06-30-2024 End: 45-12-2695Dxozagqoc identifierTrace Ramírez Work Phone: [facility] [place]Start: 06-30-2024 End: 74-82-0915YnehwunTrace Ramírez Work Phone: [facility] [place]Start: 06-21-2024 End: 65-45-3173Zibejyddk Result EncounterGeneric External Data ProviderNOMS External Department UnsolicitedStart: 06-21-2024 End: 04-31-1566Zdfhmtvuk Result EncounterGeneric External Data ProviderNOMS External Department UnsolicitedStart: 06-21-2024 End: 36-65-8696Hmnyuoixmh hospital visit by Cuba Curry MD Work Phone: [facility] 7Comment on above:S/P peripheral artery angioplasty (Primary Dx); PAD (peripheral artery disease) ([facility]); Atherosclerosis of moapa arteries of extremities with intermittent claudication, left leg (CMS-HCC); Atherosclerosis of moapa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 with ulceration of other part of foot (Multi); Acute painStart: 06-15-2024 End: 90-44-4831cdxwgjlarxVBRM [facility] Hospitaltart: 06-15-2024 End: 44-66-2150Yhqqjt outpatient new [address] [facility] DO Work Phone: [facility] MatherComment on above:PAD (peripheral artery disease) ([facility]) (Primary Dx); Anemia, unspecified typeStart: 06-15-2024 End: 75-16-7882Caeeuibmw Result EncounterGeneric External Data ProviderNOMS External Department UnsolicitedStart: 06-15-2024 End: 95-32-6888Teywtjuzx Result EncounterGeneric External Data ProviderNOMS External Department UnsolicitedStart: 06-15-2024 End: 12-08-3882pqhqqxlyhoPHLJQVA [facility] AmbulatoryStart: 06-15-2024 End: 33-86-0711hyzodvilfyFZUIES [facility] Avontart: 05-27-2024 End: 62-73-4834fgrypseswvCI Champ Bell Work Phone: [facility] Work Phone: Start: 05-27-2024 End: 54-37-7882Kocuzsr encounter procedureII Champ Bell Work Phone: [facility] [place] Work Phone: Start: 69-97-8810Hco-patient / Non-visitII Champ Bell Work Phone: [facility] V[facility] Surgery Work Phone: Start: 05-19-2024 End: 54-64-9925Kesjtstwd to same day surgery centerII Champ Blel Work Phone: [facility]-Interventional Radiology Work Phone: Start: 05-19-2024 End: 16-67-5782lykqofghwbJI Champ Bell Work Phone: [facility] Work Phone: Start: 05-18-2024 End: 37-31-3430Zovvgmn encounter procedureII Champ Bell Work Phone: [facility] V[facility] Surgery Work Phone: Start: 05-17-2024 End: 88-34-0138hayhhttrevXY Champ Bell Work Phone: [facility] Work Phone: Start: 05-17-2024 End: 32-13-6809Mpisaaz encounter procedureII Champ Bell Work Phone: [facility] [place] Work Phone: Start: 05-06-2024 End: 64-56-7106Jpogif outpatient visit 25 minutesMicnolan Ramírez Work Phone: [facility] [place]Start: 12-11-2023 End: 53-90-0534Hrcqpt outpatient visit 15 minutesAlexis Gilmore DPM Work Phone: NONH CI PODIATRYComment on above:Diabetes mellitus due to underlying condition with diabetic polyneuropathy, unspecified whether intermediate project manager insulin use ([facility]) (Primary Dx); PVD (peripheral vascular disease) ([facility]); Dry gangrene ([facility]); Foot ulcer, left, with fat layer exposed ([facility])Start: 12-03-2023 End: 50-67-4524Qlyuqvoww Result EncounterGeneric External Data ProviderNOMS External Department UnsolicitedStart: 12-03-2023 End: 11-66-8501Cxqilmlwp Result EncounterGeneric External Data ProviderNOMS External Department UnsolicitedStart: 02-19-2023 End: 97-47-8178Emvmpco encounter procedureSabrina Bermudez Vascular Surgery Start: 02-19-2023 End: 49-24-7017kajawsdhlxVD Champ Bell Work Phone: [employer] Other Start: 01-31-2023 End: 55-03-2035mxenpryeknHY CHAMP BELLFacility:T3Tenna: 01-13-2023 End: 24-07-5528Rieakyabg to same day surgery centerII Champ Bell Work Phone: [facility]-Interventional Radiology Work Phone: Start: 01-13-2023 End: 59-85-9567kqtwrwvisiXP Champ Bell Work Phone: [facility] Work Phone: Start: 01-09-2023 End: 30-58-9335yebhkwmgqdRuvzghp [place] Other [employer] [employer] Other Start: 72-64-2803Ifvzms outpatient new 60 minutes Geo Manuel Vascular SurgeryStart: 12-30-2022 End: 70-87-7929ontwslwznmGJUMTCGX BROWNFacility:T2Tmaqk: 75-33-9880plvdgikvhzHC DOCTOR MISCFacility:M8Ffanh: 10-18-2022 End: 92-79-3252Uanahw follow up visit related to original Steph Ramírez MD, PhDCVP PhysiciansStart: 10-18-2022 End: 86-83-2954Bwlisvhbt identifierAhmed M Alkaliby Work Phone: [facility] [place]Start: 10-18-2022 End: 23-96-0773Ljpjb M Alkaliby Work Phone: [facility] [place]Start: 10-17-2022 End: 34-06-7548Kpmypeinn identifierAhmed M Alkaliby Work Phone: SurgiCareStart: 10-17-2022 End: 96-64-4134Lczsa M Alkaliby Work Phone: SurgiCareStart: 10-14-2022 End: 81-00-2179Dzzfdx outpatient visit 25 minutesAhmed Yola Alkaliby Work Phone: RVBerry ToledoStart: 09-27-2022 End: 48-04-4993Tjqogi outpatient visit 25 minutesAhmed Yola Alkaliby Work Phone: RVBerry [place]edoStart: 08-17-2022 End: 79-14-7126bkdtduxafkGU VALENTE MOUKARBELFacility:U9Rjzsv: 07-21-2022 End: 06-23-2149zqfrtmlnjzDC CHAMP BELLFacility:U9Fmkll: 07-04-2022 End: 17-63-9711eqliixcezoCM CHAMP FERMINFacility:L3Ehshh: 06-29-2022 End: 22-32-9765Nkfcxghtfg and management of inpatientZOHAIB AHMEDFacility:[facility] Start: 2022 End: 35-88-3883opitqjdpheMO CHAMP FERMINFacility:W5Lowee: 81-83-3068yfneanzxwcYH CHAMP FERMINFacility:Q0Ilxsc: 09-20-2021 End: 99-66-3500yxtmpaaxspWpnjiia Langenberg Other [facility] Other Start: 23-69-9626Pnlyih outpatient visit 15 minutes Geo Manuel Vascular SurgeryStart: 01-09-2021 End: 85-96-0585Gkmdaq outpatient visit 25 minutesPhiandreas Hicks Jr Work Phone: RVBerry Randle WildwoodStart: 10-10-2020 End: 57-23-7900Yrrfbnkuv identifierPhiandreas Hicks Jr Work Phone: RVBerry Randle WildwoodStart: 10-10-2020 End: 71-79-1060Easdpb T Nelsen Jr Work Phone: RVBerry Randle WildwoodStart: 08-29-2020 End: 14-78-0023Cmuezb outpatient visit 25 minutesPhiandreas Hicks Jr Work Phone: RVBerry Randle WildwoodStart: 10-26-2019 End: 34-41-9757Vqdqydfsa Yunier Hicks Jr Work Phone: rvBerry FloreswoodStart: 10-26-2019 End: 46-31-3159KczwnlDevon Hicks Jr Work Phone: rvBerry ZhaoStart: 09-22-2019 End: 72-04-0167Jsjnqdvsz identifierDevon Hicks Jr Work Phone: rvBerry FremontStart: 09-22-2019 End: 97-64-3219EcpwfrDevon Hicks Jr Work Phone: rvBerry FremontStart: 05-05-2019 End: 68-56-8311Jdqipm consultation new/estab patient 60 minDevon Hicks Jr Work Phone: rvA Cocke Procedures DateProcedureProcedure DetailPerforming ClinicianStart: 26-97-1068Icker 1mg Pre- filled SyringeMichael PetersenStart: 80-35-1731Drgelaamnzlh njx pharmacologic agt spxMichael PetersenStart: 08-12-2025 End: 62-57-0544Natadugjdgix ophthalmic imaging retinaSameer Al Breanna MDStart: 08-12-2025 End: 65-56-9259Ohpna 1mg Pre-filled SyringeSameer Al Breanna MDStart: 08-12-2025 Eylea 1mg Pre-filled SyringeMichael PetersenStart: 08-12-2025 End: 21-98-3790Sstraypiqxsg njx pharmacologic agt spxSameer Al Breanna MDStart: 08-12-2025 End: 78-09-8417Jjfrabzoid ultrasound dx b-scan w/wo a-scanSameer Vinod Carlos MD Start: 07-28-2025 End: 60-49-5241Mekkhangbvrv ophthalmic imaging retinaSameer Al Breanna MDStart: 07-28-2025 End: 78-02-2187Owqmh 1mg Pre-filled SyringeSameer Vinod Breanna MDStart: 07-28-2025 Eylea 1mg Pre-filled SyringeMichael PetersenStart: 07-28-2025 End: 36-76-0961Hmghsezwvgbh njx pharmacologic agt spxSameer Vinod Carlos MDStart: 07-28-2025 End: 13-25-7126Qssklyyipl ultrasound dx b-scan w/wo a-scanSenrrique Soliman MD Start: 08-51-4310VQBSPHC POCT GLUCOMETERSNicjessica Gilmore DPM Work Phone: Start: 11-87-4318Tmyueyluge of footDaniel Bell II Work Phone: Start: 37-81-1788IWFRKRW POCT GLUCOMETERSNicholas A Brown DPM Work Phone: Start: 01-86-0398KAEONLH POCT GLUCOMETERSNicholas Berry Brown DPM Work Phone: Start: 87-58-3947Zhrqgpzjbi glycosylated t6vBeesraJohnna Cedeño INFORMATION SYSTEMS SPECIALIST Work Phone: Start: 88-97-0204Hnlej metabolic panel calcium total Alexis Berry Gilmore DPM Work Phone: Start: 66-71-0640Uzpyhriz blood count with white cell differential, automatedAlexis Gilmore DPM Work Phone: Start: 07-12-2025 End: 70-44-5454Ytwdi medical xm&eval comprhnsv estab pt 1/>VH (vitreous hemorrhage), right (CMS-HCC)Teena Delcid DO Work Phone: comment on above:VH (vitreous hemorrhage), right (CMS- HCC) (Primary Dx); Dry eyesStart: 70-31-3057FumncniymvzEvbqrm Bell II Work Phone: Start: 19-80-0683WZPCJVLZB REQUEST FOR LAB Gerald Fox MD Work Phone: Start: 76-71-3177FvrpxxcxdukjvxmyfrknzpfdquZouvbu Berry II Work Phone: Start: 63-73-6226GKCAZTE POCT GLUCOMETERSDale Fox MD Work Phone: Start: 69-10-7846Gwrtyehzcj glycosylated x3sUwqqug M Cesar INFORMATION SYSTEMS SPECIALIST Work Phone: Start: 53-79-7694Tohpzpxymqrpimv of right breastDafabioel Fermin II Work Phone: Start: 61-19-2109Vpferraggmm of right breastDakathi Bell II Work Phone: Start: 63-51-9581SG TOMOSYNTHESIS SCREENING Josse Bell MD Work Phone: Start: 51-13-7135GbgofusousyZfinky Berry MD Work Phone: Start: 22-10-4815MWGFA CULTURE 2Generic External Data ProviderStart: 69-20-8880LXPIZ CULTURE 1Generic External Data ProviderStart: 89-48-8727TG scan of abdominal aortaDakathi Bell II Work Phone: Start: 13-06-3343Ivbwuxei tomography of abdomen and pelvis with contrastChamp Bell II Work Phone: Start: 46-98-6480Qcuiq chest X-rayChamp Bell II Work Phone: Start: 49-85-2225Sywrfoocuqj Panel (PCR)Champ Bell II Work Phone: Start: 01-40-1245Iqgwz nucleic acid assayDakathi Bell II Work Phone: Start: 02-15-2025 End: 87-35-6476Tjcbbozmsbkf ophthalmic imaging optic nerveTeena Delcid DO Work Phone: Start: 02-15-2025 End: 80-95-7831Pkwna medical xm&eval comprhnsv estab pt 1/>Proliferative diabetic [...] of both eyes; Dry eyesStart: 01-05-2025 End: 35-59-9546Wzmutfyfpabp ophthalmic imaging retinaTrace Ramírez MD, PhD Start: 01-05-2025 End: 55-97-4638Xyxck 1mg Pre-filled SyringeTrace Ramírez MD, PhDStart: 80-70-1797Rnlot 1mg Pre-filled SyringeZackl Lindatart: 01-05-2025 End: 10-66-5004Reaujcwtnstl Injection Of Phamacologic AgentTrace Ramírez MD, PhDStart: 07-70-6572Xxdbzlvchktc Injection Of Phamacologic AgentZackl Darrell Start: 01-05-2025 End: 50-98-2826Syynehaaspgx njx pharmacologic agt spxTrace Ramírez MD, PhD Start: 88-89-0425Qofgyqcusi glycosylated s4oFeresiJohnna Cedeño NP Work Phone: Start: 66-30-1001MTQ LIPID PROFILE (FASTING)Generic External Data ProviderStart: 05-96-1674OMS CMP (CMP) (FOR REMOTE [facility] USE)Generic External Data ProviderStart: 10-21-2024 End: 36-28-9033Krahu 1mg Pre-filled Neo Ramírez MD, PhDStart: 10-77-8479Hknzv 1mg Pre-filled SyringeZackl Lindatart: 10-21-2024 End: 06-90-5986Tgkhtlbobiu angrph w/lukee i&r angela/Mary Ramírez MD, PhDStart: 10-21-2024 End: 70-14-5906Lgcaafrbfvwa Injection Of Phamacologic AgentTrace Ramírez MD, PhDStart: 93-89-5719Bvahyfpzwhpr Injection Of Phamacologic AgentMicnolan Ramírez Start: 10-21-2024 End: 86-28-6597Mzdmzevruyxv njx pharmacologic agt spxTrace Ramírez MD, PhD Start: 42-40-0397Lmhrphjlkt glycosylated v1aWxttpz M Cesar INFORMATION SYSTEMS SPECIALIST Work Phone: Start: 08-04-2024 End: 35-72-9847Anmtdwqpwhrc ophthalmic imaging retinaTrace Ramírez MD, PhD Start: 08-04-2024 End: 58-12-3091Hptew 1mg Pre-filled SyringeTrace Ramírez MD, PhDStart: 08-04-2024 End: 10-48-6544Qtlvttvtotkg Injection Of Phamacologic AgentTrace Ramírez MD, PhDStart: 43-66-2567Knp-invas physiologic std extremity art 2 levelElena I Tabirta MANAGER HEMATOLOGY-CINDER PIT WORKER Work Phone: Start: 09-08-4185Lpe bmtry prtl coher intrfrmtry io lens pwr Sasha Delcid DO Work Phone: Start: 06-30-2024 End: 99-12-9891Hpqegmhgdrk injectionTrace Ramírez MD, PhDStart: 06-30-2024 End: 84-09-5472Uxgymycwaigl ophthalmic imaging retinaTrace Ramírez MD, PhD Start: 06-30-2024 End: 48-77-9486Rnjmwhsounqr Injection Of Phamacologic AgentTrace Ramírez MD, PhDStart: 06-30-2024 End: 90-10-8977Ytvglstuokjp njx pharmacologic agt kenroyxTrace Ramírez MD, PhD Start: 09-27-5085MIVLWHCS VASCULAR PROCEDUREMeedi Meka Francine DO Work Phone: Start: 06-21-2024 End: 24-43-4222Tytnehoiwrp time activatedNely Curry MD Work Phone: Start: 06-21-2024 End: 51-18-1532Lkzaewaaiql time activatedNely Curry MD Work Phone: Start: 67-85-3443TOLMKUIV VASCULAR PROCEDUREGeneric External Data ProviderStart: 68-14-1697Rbc-invasive physiologic study extremity 3 levlsGeneric External Data ProviderStart: 26-48-8533Prdzpjucv aortogramII Champ Bell Work Phone: Start: 79-90-2634EevybjjfwanYL Champ Bell Work Phone: Start: 19-70-3542Mqprv volume recorder pneumoplethysmographyII Champ Bell Work Phone: Start: 75-81-0322Xgmsmux of coronary artery bypass graftingS/P CABG x 4Sherri Cascade INFORMATION SYSTEMS SPECIALIST Work Phone: Start: 05-06-2024 End: 81-96-9471Lhdzj 1mg Pre-filled SyringeTrace Ramírez MD, PhDStart: 05-06-2024 End: 44-99-6181Dkrsyb photography w/interpretation & reportTrace Ramírez MD, PhDStart: 05-06-2024 End: 67-08-2421Kbvojnrxrhvf Injection Of Phamacologic AgentTrace Ramírez MD, PhDStart: 05-06-2024 End: 94-97-5800BPS No Charge Uni Or Mary Ramírez MD, PhDStart: 12-03-2023 SEGMENTAL BLOOD PRESSUREGeneric External Data ProviderStart: 06-04-2023H/O: hysterectomyHistory of hysterectomyNicholjose Gilmore DPM Work Phone: Start: 63-74-7824Bqets limb angiographyII Champ Bell Work Phone: Start: 10-17-2022 End: 24-44-4516Juj complex retina detach vitrect &membrane peelTrace Ramírez MD, PhDStart: 10-14-2022 End: 36-18-1107Djdgz Sample DrugTrace Ramírez MD, PhDStart: 10-14-2022 End: 67-19-9298Klxgqtxfpcwq njx pharmacologic agt spxTrace Ramírez MD, PhD Start: 10-14-2022 End: 99-39-8622Qtdioqhktd ultrasound dx b-scan w/wo a-scanTrace Ramírez MD, PhDStart: 09-27-2022 End: 68-81-2899Tvnacsblysxu ophthalmic imaging retinaTrace Ramírez MD, PhD Start: 09-27-2022 End: 45-06-2043Goizr 1mg Pre-filled SyringeTrace Ramírez MD, PhDStart: 09-27-2022 End: 98-22-6910Xmuslc Photos No Charge BilateralTrace Ramírez MD, PhDStart: 09-27-2022 End: 16-16-6951Aeyxjzokiird njx pharmacologic agt spxTrace Ramírez MD, PhD Start: 57-77-5519QrfayqzfbitCfljg Hammad MD Work Phone: Start: 01-09-2021 End: 39-52-2833Moiiaklbhsiv ophthalmic imaging retinaTrace Ramírez MD, PhD Start: 10-10-2020 End: 22-33-5025Nxaupw photography w/interpretation & reportMicnolan Ramírez MD, PhDStart: 08-29-2020 End: 25-55-1368Sxxwhxfxcbxq ophthalmic imaging retinaTrace Ramírez MD, PhD Start: 08-29-2020 End: 01-55-3922Pnehx Sample DrugTrace Ramírez MD, PhDStart: 08-29-2020 End: 19-13-3478Heuthkjzuatv njx pharmacologic agt spxTrace Ramírez MD, PhD Start: 13-34-4857BzaxhhpixvuEjfafymw Brown DPM Work Phone: Start: 10-26-2019 End: 38-09-9607Bpjbulifhna angrph w/multiframe i&r uni/Mary Ramírez MD, PhDStart: 10-26-2019 End: 55-24-2115Fzoenjoxe extensive retinopathy photocoagulationTrace Ramírez MD, PhDStart: 09-22-2019 End: 86-44-5626Txzhvruawrdx ophthalmic imaging retinaTrace Ramírez MD, PhD Start: 05-05-2019 End: 14-15-6049Pthsaa photography w/interpretation & reportTrace Ramírez MD, PhDHistory of coronary artery bypass graftingS/P CABG x 4Sthomas Cedeño INFORMATION SYSTEMS SPECIALIST Work Phone: Plan of Treatment DateCare ActivityDetailAuthorStart: 47-35-7515PMuX/Tdap/Td Vaccines (2 - Td or Tdap)DTaP/Tdap/Td Vaccines (2 - Td or Tdap)[facility] Start: 05-11-6570Cllztxecm for malignant neoplasm of colonSheltering Arms HospitalStart: 67-69-3205Kvzkb screening for proteinDiabetes: Urine Protein ScreeningNOMS HealthcareStart: 68-08-3385Bysqoite screeningDiabetes: Retinopathy ScreeningNOSC HealthcareStart: 90-52-2980Pijwugjrr for malignant neoplasm of breastMammogramNOSC HealthcareStart: 79-71-9300Hxkpsges screeningDiabetes: Retinopathy ScreeningNOSC HealthcareStart: 01-09-2026 End: 88-53-1909Zobgutq encounter rojkqwzkb38/02/2026 1:15 PM EST Office Visit [facility] [address] [place] [address] Teena Delcid DO [address] [place] [address] [facility]Start: 01-05-2026 Glaucoma screeningDiabetes: Retinopathy ScreeningNOSC HealthcareStart: 19-68-2689Ppdfeup, Dixie 4 Mnth IO EYL OS/ OCTCVP Physicians Work Phone: Start: 12-01-2025 End: 79-72-3294Sabcdtc encounter rtsjvtkir65/22/2026 3:40 PM EST Office Visit [facility] [address] [facility] [address] [place] [address] Alexis Gilmore DPM [address] [facility] [address] [place] [address] [facility] CI PODIATRYStart: 11-17-2025 End: 28-02-0742Tkbihca encounter unrghmeii96/08/2026 2:00 PM EST Office Visit [facility] [address] [place] [address] Alexis Gilmore DPM [address] [facility] [address] [place] [address] [facility] CI PODIATRYStart: 61-24-7992Dukkzuinpf A1c measurementDiabetes: Hemoglobin T8GEEDQ HealthcareStart: 10-18-2025 End: 71-67-4128Eciqclv encounter ifwjrqmrr49/09/2025 11:00 AM EST Office Visit [facility] [address] [facility] [address] [place] [address] Johnna Cedeño NP [address] [place] [address] [facility] MedinceStart: 09-20-2025 End: 29-44-3863Qmxgdrl encounter trrddykdt29/11/2025 10:30 AM EST Office Visit [facility] [address] [facility] [address] [place] [address] Johnna Ceedño NP [address] [place] [address] ArrivedNOMS [place] Clark MedinceComment on above:ArrivedStart: 09-15-2025 End: 33-57-2530Sjfqxfx encounter procedureNOMS CI PODIATRYComment on above: Contracture of right ankle (Primary Dx); Achilles tendinitis, right leg; Type 2 diabetes mellitus with hyperglycemia, with long-term current use of insulin (HCC); Pain due to onychomycosis of toenails of both feetStart: 72-15-1072Zbpcmdy, Dixie 6 Weeks IO EYL OD(2-3) NO OCTCVP Physicians Work Phone: Start: 08-25-2025 End: 68-50-9297Qibwbmv encounter mynebporu12/16/2025 2:30 PM EDT Office Visit [facility] [address] [place] [address] Alexis Gilmore DPM [address] [facility] [address] [place] [address] NOMJulita ARCHIBALD PODIATRYStart: 08-24-2025 End: 14-07-4757RA Breast - bilateral ScreeningBilateral screening mammogram Imaging Routine Abnormal breast exam Encounter for screening mammogram for malignant neoplasm of breast Expected: 08/24/2025, Expires: 10/24/2026[facility] Work Phone: Comment on above:Expected: 08/24/2025, Expires: 10/24/2026Start: 08-24-2025 End: 35-35-8996Ekddgyg encounter alhrlxxbq75/15/2025 11:30 AM EDT Office Visit [facility] [address] [place] [address] Johnna Cedeño NP [address] [place] [address] ArrivedNOMS [place] Clark MedinceComment on above:ArrivedStart: 78-25-8594Rbdyucngna about tobacco useTobacco cessation counselingCVP PhysiciansStart: 75-94-6190Obpgxva, Dixie Fu Appt Vision Changes Os - See Call NoCVP Physicians Work Phone: Start: 60-22-3874Bfhavmwvhm about tobacco useTobacco cessation counselingCVP PhysiciansStart: 07-27-2025 End: 18-48-4074Wbfcgcn encounter procedureNO Ivy Espinoza PodiatryComment on above:Contracture of right ankle (Primary Dx); Achilles tendinitis, right legStart: 79-51-2927TlfusqfisSelect Medical Specialty [facility] Start: 07-20-2025 End: 61-88-1840Ekwdnqta US Ankle Brachial Index (BRIDGER) Without ExerciseVascular US Ankle Brachial Index (BRIDGER) Without Exercise Vascular Ultrasound Routine PAD (peripheralartery disease) ([facility]) Expected: 07/20/2025 (Approximate), Expires: 07/20/2026[facility] Service Area Work Phone: Comment on above:Expected: 07/20/2025 (Approximate), Expires: 07/20/2026Start: 07-20-2025 End: 55-93-7508Pikdadf encounter procedureNOMS [place] Clark MedinceComment on above:ArrivedStart: 07-19-2025 End: 16-50-3033Dxrfemc encounter procedureAnn [facility] Start: 65-55-3792Pgoszebbyx A1c measurementDiabetes: Hemoglobin E3CJXCE HealthcareStart: 07-14-2025 End: 18-47-5112Nrskogr encounter procedureNOMS CI FMStart: 20-92-4619Lukfpnqk screeningDiabetes: Retinopathy ScreeningNOSC HealthcareStart: 07-12-2025 End: 32-53-0836Lzxwrsy encounter xphcopntn44/02/2025 1:00 PM EDT Office Visit [facility] [address] [place] [address] Teena Delcid DO [address] [place] [address] ArrivedSt. Dominic Hospital EyeComment on above:ArrivedStart: 53-45-3303JESOH-19 Vaccine ( season)COVID-19 Vaccine ( season)[facility] HealthcareStart: 73-94-4178Kbzmaphwg vaccinationInfluenza Vaccine (#1)[facility] HealthcareStart: 06-20-2025 End: 74-36-1097Nkwjdzm encounter fbodltziu14/11/2025 11:00 AM EDT [facility] [address] [facility] [address] [place] [address] Dale Fox MD [address] [place] [address] [address] [place] [address] [facility] AssociatesStart: 06-16-2025 End: 24-37-1093Elepjil encounter procedureNOMS CI PODIATRYComment on above: Achilles tendinitis, right leg (Primary Dx); Contracture of right ankle; Diabetes mellitus due to underlying condition with diabetic polyneuropathy, unspecified whether correction insulin use (HCC); Pain due to onychomycosis of toenails of both feetStart: 06-09-2025 End: 80-51-7059Vriqslu encounter ybipnkibh19/31/2025 1:40 PM EDT Office Visit [facility] [address] [facility] [address] [place] [address] Alexis Gilmore DPM [address] [address] NOMS PODIATRYStart: 06-09-2025 End: 50-29-3444ZbguerglfSelect Medical Specialty Hospital - Trumbulltart: 06-08-2025 End: 22-32-7903Ixncerq encounter cmbaregvx36/30/2025 2:00 PM EDT Office Visit [facility] [address] [place] [address] Alexis Gilmore DPYola [address] [address] NOMS MS PODStart: 10-67-6713Zarhxher screeningDiabetes: Retinopathy ScreeningSalem Memorial District HospitalStart: 04-14-2025 End: 74-77-0116JFR panel - Blood by Automated countCBC Lab Routine Benign essential hypertension ([facility]) Type 2 diabetes mellitus with hyperglycemia, with long-term current use of insulin ([facility]) Expected: 04/14/2025 (Approximate), Expires: 04/14/2026[facility] Work Phone: Comment on above:Expected: 04/14/2025 (Approximate), Expires: 04/14/2026Start: 04-14-2025 End: 82-91-6338Wuepdxuaslrcq metabolic 2000 panel - Serum or PlasmaComprehensive metabolic panel Lab Routine Benign essential hypertension ([facility]) Type 2 diabetes mellitus with hyperglycemia, with long-term current use of insulin ([facility]) Expected: 04/14/2025 (Approximate), Expires: 04/14/2026[facility] Comment on above:Expected: 04/14/2025 (Approximate), Expires: 04/14/2026Start: 04-14-2025 End: 16-39-7304ICF Skeletal system Views for bone densityDEXA bone density Imaging Routine Estrogen deficiency Expected: 04/14/2025, Expires: 04/14/2026 NOMS HealthcareComment on above:Expected: 04/14/2025, Expires: 04/14/2026Start: 04-14-2025 End: 88-62-1704Tavkm 1996 panel - Serum or PlasmaLipid panel Lab Routine 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 ([facility]) Mixed hyperlipidemia ([facility]) Expected: 04/14/2025 (Approximate), Expires: 04/14/2026[facility] HealthcareComment on above: Expected: 04/14/2025 (Approximate), Expires: 04/14/2026Start: 04-14-2025 End: 82-00-4240Fpcqtpdlxilu/Creatinine panel in random UrineMicroalbumin / creatinine, urine ratio Lab Routine Poorly controlled diabetes mellitus ([facility]) Expected: 04/14/2025 (Approximate), Expires: 04/14/2026[facility] Comment on above:Expected: 04/14/2025 (Approximate), Expires: 04/14/2026Start: 04-14-2025 End: 96-93-7702Mfzrrvxckll [Units/volume] in Serum or PlasmaTSH Lab Routine Overweight Screening for thyroid disorder Expected: 04/14/2025 (Approximate), Expires: 04/14/2026[facility] HealthcareComment on above:Expected: 04/14/2025 (Approximate), Expires: 04/14/2026Start: 04-14-2025 End: 43-87-1318Qbitsox encounter qxynmofer14/05/2025 1:30 PM EDT Office Visit [facility] [address] [facility] [address] [place] [address] Johnna Cedeño INFORMATION SYSTEMS SPECIALIST [address] [facility] [address] [place] [address] [facility] FMComment on above:ArrivedStart: 05-23-2025Medicare Annual Wellness (AWV)Medicare Annual Wellness (AWV)[facility] HealthcareStart: 03-31-2025 End: 74-01-0360Rqituhg encounter neboeqoem18/22/2025 1:00 PM EDT Office Visit [facility] [address] [facility] [address] [place] [address] Johnna Cedeño NP [address] [facility] [address] [place] [address] [facility] CI FMStart: 03-30-2025 End: 82-59-7095Zmpmbkx encounter gsqbjztyx60/21/2025 2:30 PM EDT Office Visit [facility] [address] [place] [address] Alexis Gilmore DPM [address] [address] Contracture of right ankle (Primary Dx); Achilles tendinitis, right leg; Diabetes mellitus due to underlying condition with diabetic polyneuropathy, unspecified whether correction insulin use ([facility]); Pain due to onychomycosis of toenails of both feetNOMS MS PODComment on above:Contracture of right ankle (Primary Dx); Achilles tendinitis, right leg; Diabetes mellitus due to underlying condition with diabetic polyneuropathy, unspecified whether correction insulin use ([facility]); Pain due to onychomycosis of toenails of both feetStart: 03-30-2025 End: 42-27-9087Bgeuwcg encounter uqrdybtsn22/21/2025 9:30 AM EDT Office Visit [facility] [address] [facility] [address] [place] [address] Johnna Cedeño NP [address] [facility] [address] [place] [address] [facility] CI FMStart: 65-49-8181Zmhwpnsgxa A1c measurement Diabetes: Hemoglobin E1HSLJX HealthcareStart: 03-10-2025 End: 05-59-1972Obhlzbi encounter bzxocilst88/01/2025 2:40 PM EDT Office Visit [facility] [address] [place] [address] Alexis Gilmore DPM [address] [address] N[facility] CI PODIATRYStart: 03-01-2025 End: 92-94-8833CE Breast - bilateral ScreeningBilateral screening mammogram Imaging Routine Encounter for screening mammogram for breast cancer Expected: 03/01/2025, Expires: 05/01/2026[facility] Work Phone: Comment on above:Expected: 03/01/2025, Expires: 05/01/2026Start: 02-23-2025 End: 48-87-3219Nefohpq encounter kmtezbmpv34/16/2025 10:30 AM EDT Office Visit [facility] [address] [place] [address] Johnna Cedeño, INFORMATION SYSTEMS SPECIALIST [address] [place] [address] [facility] CI FMStart: 02-17-2025 End: 95-54-1193Mkongcc encounter txaejphca15/10/2025 9:40 AM EDT Office Visit [facility] [address] [place] [address] Alexis Gilmore DPM [address] [address] N[facility] CI PODIATRYStart: 57-13-8850Cgrpivr, Dixie / 5-6wk JAYLEN BAIRD Physicians Work Phone: Start: 16-50-7145OitlhkvrbSelect Medical Specialty [facility] Start: 31-10-8587UucebyujvSelect Medical Specialty Hospital - Trumbulltart: 76-36-0449Nwjinvid admissionSelect Medical Specialty Hospital - Trumbulltart: 59-08-7959PcumyinuySelect Medical Specialty Hospital - Trumbulltart: 02-15-2025 End: 88-61-3032Muzzsid encounter procedureNOMS ZIMMERMAN OPHTComment on above:Arrived Start: 55-53-4067Xjdkb screening for proteinDiabetes: Urine Protein Screening N[facility] HealthcareStart: 01-13-2025 End: 29-13-7551Xajjluou Subesvq7501/13/2025 11:50 AM EST Clinical Support [facility] [address] [place] [address] Alexis Gilmore DPM [address] [address] [facility] CI PODIATRYStart: 12-30-2024 End: 45-81-5358BD Breast - bilateral ScreeningBilateral screening mammogram Imaging Routine Encounter for screening mammogram for malignant neoplasm of breast Expected: 12/30/2024, Expires: 02/27/2026[facility] Work Phone: Comment on above:Expected: 12/30/2024, Expires: 02/27/2026Start: 12-30-2024 End: 70-87-3886Ldticev encounter procedureNOMS CRISTELA FMComment on above:Heel spur, right (Primary Dx); Achilles tendinitis, right leg; Contracture of right ankleStart: 92-88-0843Zjaplabdld A1c measurementDiabetes: Hemoglobin [id number] HealthcareStart: 12-23-2024 End: 60-11-5253Bqnugaoh Tlaprby7812/23/2024 9:50 AM EST Clinical Support [facility] [address] [facility] [address] [place] [id number] Alexis Gilmore DPM [address] [address] [facility]Start: 12-09-2024 End: 86-91-7559Wqmqegs encounter zakwhsaxl19/30/2025 9:20 AM EST Office Visit [facility] [address] [place] [address] [place] [id number] Alexis Gilmore DPM [address] [address] [facility]RYStart: 54-50-3935Uxrqwngq mellitus screeningDiabetes ScreeningSheltering Arms HospitalStart: 10-15-2024 End: 42-28-3169Cxryuvz encounter procedureNOMS NB OPHTComment on above:Arrived Start: 09-30-2024 End: 29-05-4599Tlujhts encounter procedureNOMS CI FMComment on above:Arrived Start: 09-30-2024 End: 48-60-8557Rtypruw encounter procedureNOMS CI PODIATRYComment on above:Dry gangrene (CMS/HCC) (Primary Dx); PVD (peripheral vascular disease) (CMS/HCC); Diabetes mellitus due to underlying condition with diabetic polyneuropathy, unspecified whether intermediate project manager insulin use (CMS/HCC); Pain due to onychomycosis of toenails of both feetStart: 09-21-2024 End: 42-06-7408Jfgdmsb encounter vcnowciis80/12/2024 11:50 AM EST Office Visit [facility] [address] [place] [phone] Alexis Gilmore DPM [address] [address] [facility] [place] PODStart: 09-17-2024 End: 31-71-8603Lmkqcsm encounter psdnynuap04/08/2024 11:50 AM EST Office Visit [facility] [address] [place] [phone] Alexis Gilmore DPM [address] [address] [facility] [place] PODStart: 09-17-2024 End: 45-52-9354Knxrskf encounter dzpfrocef56/08/2024 9:30 AM EST Office Visit [facility] OPHT [address] [facility] [address] [place] [phone] Teena Delcid, DO [address] [place] [address] ArrivedNOMS NB OPHTComment on above:ArrivedStart: 09-07-2024 End: 96-16-1329Tdredkf encounter procedureNOMS NB OPHTComment on above:Arrived Start: 09-06-2024 End: 87-75-1735Pfbzpmc encounter zermeysqn11/28/2024 9:05 AM EDT Procedure Visit [facility]T DEP Teena Delcid, DO [address] [place] [address] [facility] EXT DEPStart: 08-31-2024 End: 77-62-0919Fplhgpj encounter gjshhxesa89/22/2024 8:45 AM EDT Office Visit [facility]IYANKA [facility]MER[facility] OPHT [address] [facility] [address] [place] [phone] Teena Delcid, DO [address] [place] [address] NOMJulita NB OPHTStart: 08-24-2024 End: 80-77-7390Uqmivse encounter procedureNOMS NB OPHTComment on above:Arrived Start: 08-23-2024 End: 79-43-7778Nfckwpb encounter krvwyzsxr45/14/2024 8:45 AM EDT Procedure Visit [facility] EX[facility] DEP Teena Delcid, DO [address] [place] [address] [facility] EXT DEPStart: 08-04-2024 Diann Patel 5-6 (5)wks Io Oct Eyl OuCVP Physicians Work Phone: Start: 07-22-2024 End: 05-49-6307Lcoofcqc US Ankle Brachial Index (BRIDGER) Without ExerciseVascular US Ankle Brachial Index (BRIDGER) Without Exercise Vascular Ultrasound Routine PAD (peripheralartery disease) ([facility]) S/P peripheral artery angioplasty Expected: 07/22/2024 (Approximate), Expires: 06/21/2026[facility] Work Phone: Comment on above:Expected: 07/22/2024 (Approximate), Expires: 06/21/2026Start: 07-20-2024 End: 04-01-8667Uimtwoj encounter procedureUH [facility] Start: 07-13-2024 End: 29-39-5972Baupqsk encounter procedureNOMS NB OPHTComment on above:Arrived Start: 22-93-1506Gkouffjar vaccinationInfluenza Vaccine (#1)[facility] Start: 07-09-2024 End: 84-22-1519Lqgklmn encounter eblizfzya70/30/2024 11:50 AM EDT [facility] [address] [place] [phone] Alexis Gilmore, DPM [address] [address] PVD (peripheral vascular disease) ([facility]) (Primary Dx); Diabetes mellitus due to underlying condition with diabetic polyneuropathy, unspecified whether intermediate project manager insulin use ([facility]); Dry gangrene ([facility]); Onychomycosis; Toe pain, bilateralNOMS SC PODComment on above:PVD (peripheral vascular disease) ([facility]) (Primary Dx); Diabetes mellitus due to underlying condition with diabetic polyneuropathy, unspecified whether intermediate project manager insulin use ([facility]); Dry gangrene ([facility]); Onychomycosis; Toe pain, bilateralStart: 66-49-4231Biscwxrvfx A1c measurementDiabetes: Hemoglobin I6OHGTESalem Memorial District HospitalStart: 06-76-0100Ghvxxzbdbf (US) doppler flow mapping of vein of upper limbUS venous mapping BI [facility]art: 58-51-5742IN Lower extremity veins - [facility]art: 54-17-9056MT scan venography of lower limbsUS venous mapping BI lowerSelect Medical Specialty Hospital - Trumbulltart: 48-79-6005HN Upper extremity vein - bilateralSelect Medical Specialty Hospital - Trumbulltart: 43-43-6413Lohvbei referralDetwiler Memorial Hospital Ctr Work Phone: Start: 44-58-3123GbgsolbfySelect Medical Specialty Hospital - [facility] Start: 59-27-5320Ypbzq volume recorder pneumoplethysmographyUS arterial pvr rest [facility] Centertart: 84-42-0265HcivatsugSelect Medical Specialty Hospital - Trumbulltart: 16-86-5474GDeZ/Tdap/Td Vaccines (2 - Td or Tdap)DTaP/Tdap/Td Vaccines (2 - Td or Tdap)[facility] HealthcareStart: 13-62-5571Fkcnlkwjsi A1c measurementDiabetes: Hemoglobin Z8PRRGR HealthcareStart: 02-05-2024 End: 58-27-1353Qiucxvz encounter faorigtjl74/28/2024 10:10 AM EDT Office Visit [facility]OD[facility]ATRY [address] [facility] [address] [place] [address] Alexis Gilmore, DPYola [address] [facility] [address] [place] [address] N[facility] CI PODIATRYStart: 12-15-2023 End: 32-04-9087Dulgjik encounter pegzkdtud14/05/2024 2:30 PM EST Office Visit [facility] CI FM [address] [facility] [address] [place] [address] Champ Bell MD [address] [facility] [address] [place] [address] NOMS CI FMStart: 31-74-7629Owdydzdqt vaccinationInfluenza Vaccine (#1)[facility] HealthcareStart: 31-99-4584Tarhsnwbw for malignant neoplasm of [facility] HospitalStart: 52-26-8323QvkaglcbrSelect Medical Specialty Hospital - Trumbulltart: 87-61-6487Qwsthbsb screeningDiabetes: Retinopathy Screening [facility] HealthcareStart: 70-74-4777Seqbchlydrwn Vaccine: 65+ Years (2 - PCV) Pneumococcal Vaccine: 65+ Years (2 - PCV)[facility] HealthcareStart: 10-06-2021 Pneumococcal Vaccine: 65+ Years (2 of 2 - PCV)Pneumococcal Vaccine: 65+ Years (2 of 2 - PCV)[facility] HealthcareStart: 78-81-1374Ljfdxykeduxq Vaccine: 65+ Years (3 of 3 - PCV)Pneumococcal Vaccine: 65+ Years (3 of 3 - PCV)[facility] HospitalStart: 12-81-9820Njwqnmtlt for malignant neoplasm of breastMammogramKANE COUNTY [facility] Start: 89-44-9753Tvyil screening for proteinDiabetes: Urine Protein Screening [facility] HospitalStart: 24-28-2284Nmapoyj cessation educationTobacco cessation counselingCVP PhysiciansStart: 57-40-3822Qovfyio EducationHealth Information for You: MedlinePl~[facility] Work Phone: Start: 82-41-3166HHR patients and/or patients aged 60+ years (1 - 1-dose 60+ series)RSV patients and/or patients aged 60+ years (1 - 1-dose 60+ series)[facility]: 03-08-1296Gulilx Vaccines (1 of 2)Zoster Vaccines (1 of 2)[facility]: 08-69-9572Vjxbitsyv C screeningHepatitis C Screening [facility]: 82-14-6752VQELP-19 Vaccine (#1)COVID-19 Vaccine (#1)[facility]: 10-64-8087Iibzi panelLipid PanelCrystal Clinic Orthopedic Center: 1954Medicare Annual Wellness (AWV)Medicare Annual Wellness (AWV)[facility] HospitalStart: 1954Medicare Annual Wellness VisitMedicare Annual Wellness Visit (AWV)[facility]: 81-65-3957Migjxcabc for malignant neoplasm of colonSheltering Arms HospitalBLOOD CULTURE 1BLOOD CULTURE 1 Lab Routine 02/18/2025 6:00 AM EDTNOMS HealthcareBLOOD CULTURE 2BLOOD CULTURE 2 Lab Routine 02/18/2025 6:34 AM EDTNOMS HealthcareGlucose [Mass/volume] in Serum or PlasmaPOCT Glucose Point of Care Testing - Docked Device Routine As needed (Lab) until discontinued starting 06/21/2024[facility] Service Area Work Phone: Comment on above:As needed (Lab) until discontinued starting 06/21/2024atient EducationDetwiler Memorial Hospital Ctr Work Phone: Patient referralDetwiler Memorial Hospital Ctr Work Phone: US Eye+Orbit - bilateralIOL Biometry - OU - Both Eyes (CPT 89769) Ophthalmology Routine Pseudophakia Ordered: 10/15/2024[facility] Work Phone: comment on above:Ordered: 10/15/2024US [facility] veins [facility]US [facility] vein - [facility] HospitalVascular US Ankle Brachial Index (BRIDGER) Without ExerciseVascular US Ankle Brachial Index (BRIDGER) Without Exercise Vascular Ultrasound Routine PAD (peripheralartery disease) ([facility]) S/P peripheral artery angioplasty 07/20/2024 4:17 PM [facility] Service Area Work Phone: Immunizations Immunization DateImmunizationNotesCare YsdsnvfaYtzpwrnq93-21-8177Gwzjmrcht, High-dose Seasonal, Quadrivalent, Preservative FreeManjula CUEVAS Work Phone: [facility] HospitalQonvbxtfoe70-33-7025zinbsilbp virus vaccine, unspecified formulationDale Cronin MD Work Phone: [facility] HospitalZaddmlkfvd54-52-3084jmgfumg toxoid, reduced diphtheria toxoid, and acellular pertussis vaccine, adsorbedNicholas Brown DPM Work Phone: NOSac-Osage HospitalKehtfbxxak59-75-1550vsklnotei, high dose seasonal, preservative-freeNicholas Dillon DPM Work Phone: [facility] HospitalRlzwdfucne90-14-9575Wefapduxe, High-dose Seasonal, Quadrivalent, Preservative FreeNicholas Dillon DPM Work Phone: noSac-Osage HospitalVnjcrqfnge89-82-7336ccxrahllj virus vaccine, unspecified formulationNickittyas Brown DPM Work Phone: [facility] HospitalRcjcoklbzb51-52-4781Oetfmeoqx, Seasonal, Quadrivalent, AdjuvantedNicholas Brown DPM Work Phone: [phone] [place], [place] [address]Flmlrbhjdc33-51-1855cncwveost, injectable, quadrivalent, preservative freeNicholas Brown DPM Work Phone: [phone] [place], [place] [address]Cfynnqpjxl23-21-5319hgwifmqlqgan polysaccharide vaccine, 23 valentNicholas Brown DPM Work Phone: [phone] [place], [place] [address]Skkaddqfcv12-96-6606ckpndywda, high dose seasonal, preservative-freeNicholas Brown DPM Work Phone: [phone] [place], [place] [address]Cwirrlcdsn51-26-0967xotcwozno, high dose seasonal, preservative-freeNicholas Brown DPM Work Phone: [phone] [place], [place] [address]Vsypekkxqj31-05-9363utcmappt influenza, intradermal, preservative freeNicholas Brown DPM Work Phone: [phone] [place], [place] [address]Hnpmobcely75-28-4801wszfcnsa influenza, intradermal, preservative freeNicholas Brown DPM Work Phone: [phone] [place], [place] [address]Hzthskaqsq40-07-5095cfruriyhu, injectable, quadrivalent, preservative freeNicholas Brown DPM Work Phone: [phone] [place], [place] [address]Ptuqcxtavx58-27-2795ewrlxashsprw polysaccharide vaccine, 23 valentNicholas Brown DPM Work Phone: [phone] [place], [place] [address]Qwjhxkpvsi92-70-0750tckblwja influenza, intradermal, preservative freeNicholas Brown DPM Work Phone: [phone] [place], [place] [address]Boywkyqumn91-87-4055jycztxjax, injectable, quadrivalent, preservative freeNicholas Brown DPM Work Phone: [phone] [place] [address] Payers DatePayer CategoryPayerPolicy [id number] [facility] [id number] [id number] 2015Medicare [id number] [id number] 1960 Bozn-[id number] 2..1.383651.490925[id number]-3475Jbwivzx47369736 2.0.1.018725.3.579.2.61910-98-3335Kaqymxl3389683 2.0.1.781052.3.579.2.96778-02-3356Efowbtw5955098 2.0.1.679062.3.579.2.59962-04-6008Ytixnth6043077 2.840.1.973055.3.579.2.29582-35-6961Iisfliz5996289 2.16840.1.713415.3.579.2.09544-99-7902Zktoqet3996747 2.16840.1.939423.3.579.2.92452-77-9098Tpvbxhx3448118 2.16840.1.913528.3.579.2.34874-57-9356Zudpbbv7940698 2.16.840.1.797709.3.579.2.34742-03-9063Lcpqsez9255189 2.16.840.1.494145.3.579.2.40867-94-5369Lxwgaxq01546176 2.16.840.1.933547.3.579.2.356343-66-4291Ecsbcqf67742310 2.16.840.1.252346.3.579.2.847659-25-3466Elsrpbg20733021 2.16840.1.961059.3.579.2.569967-10-9850Lqfkcpc57814338 2.16.840.1.716984.3.579.2.987460-59-1050Xrtukgd01511655 2.16840.1.378516.3.579.2.845596-55-5535Prgfobm12208864 2.16840.1.605420.3.579.2.810751-03-5069Bastnwc8062453 2.16.840.1.482482.3.579.2.879787-93-8578Togabnc2882371 2.16840.1.003209.3.579.2.416161-66-5949Gcrqpqq7872409 2.16.840.1.171566.3.579.2.723235-40-5849Lcdrlrl1783640 2.16.840.1.460801.3.579.2.817367-19-0312Tcotwff5159457 2.16.840.1.741797.3.579.2.656076-86-8374Bxyimpt2351928 2.16840.1.666638.3.579.2.862013-10-8340Idkyzkf8924562 2.16840.1.401750.3.579.2.969500-51-5748Gjijpzd71259113 2.840.1.721170.3.579.2.233315-61-0109Rubcdge63133011 2.840.1.440082.3.579.2.125173-88-8288Jgrbvxc34720288 2.840.1.800160.3.579.2.379954-03-1964Pwranni99517267 2.840.1.953649.3.579.2.975639-40-8353Faizxpa60502616 2..1.686135.3.579.2.109111-59-9512Zcyqwrs18826036 2.0.1.052572.3.579.2.098901-00-5835Ydjxzjl67069503 2.840.1.343453.3.579.2.532926-94-6191Jlldgvw96094641 2.840.1.602619.3.579.2.797306-49-0680Juakhdw00794359 2..1.029515.3.579.2.372104-38-7895Obkhrcb92709681 2.0.1.297144.3.579.2.879274-19-5423Icjpmpr16910613 2.0.1.158777.3.579.2.373645-42-2044Kjyarhw3683847 2.840.1.661431.3.579.2.801728-94-4216Yjvhzqu5335988 2.840.1.656115.3.579.2.514781-71-6322Rklgtcd7068388 2.16.840.1.179007.3.579.2.923308-00-1072Fefzfpa6558911 2.16.840.1.777347.3.579.2.704258-25-1902Mdatgxl9890209 2.16.840.1.703087.3.579.2.302138-76-3397Llbvfdr6131423 2..840.1.485727.3.579.2.664848-09-5017Aoouidn6576795 2..840.1.347649.3.579.2.661306-16-7112Iuujofr7088112 2.16.840.1.393670.3.579.2.101161-36-1952Awpxnwm1223566 2..840.1.354372.3.579.2.717389-45-5168Avrouns7486633 2.16.840.1.633052.3.579.2.1569Exmigam64215661 2.16.840.1.411825.3.579.2.531 Kymglmg83148261 2.16.840.1.990350.3.579.2.137Ismqiou18181069 2..840.1.713148.3.579.2.056Sgqyzrz10591117 2.840.1.605237.3.579.2.531 Oulzjra99227398 2.840.1.371745.3.579.2.531 Social History DateTypeDetailFacilityStart: 12-11-2023 End: 26-49-7253Woo Assigned At [facility] Other Start: 01-13-2023 End: 50-57-7497Folzxgm smoking status NHISNever smoked tobacco (finding) [facility]: 00-51-0020Qbs Assigned At BirthFemale [facility] Tr[facility]ulltart: 12-11-2023 End: 06-20-1032Jajmtsz intakeLifetime non-drinker (finding)[facility] HealthcareStart: 12-11-2023 End: 48-05-9978Mhxocof of Social functionNOMS HealthcareStart: 35-70-3997Ygb Assigned At BirthNot on fileNOMS HealthcareStart: 06-30-2024 End: 67-20-6732Rxeueip smoking status NHISLight tobacco smokerCVP Physicians Start: 44-49-5985Boorxab of tobacco useLight cigarette smoker (1-9 cigs/day)[facility] PhysiciansStart: 22-90-4463Fajkzb-related behavior (observable entity)Caffeine Use DetailsCVP PhysiciansStart: 84-25-7187Xkuxepy use and exposureSmoking Tobacco Use DetailsCVP PhysiciansStart: 05-05-2024 End: 63-82-0867Pxcrmtk smoking status NHISEx-smokerNOMS Healthcare Work Phone: History of tobacco useCurrent smokerN[facility]S Healthcare History of tobacco useCigarette SmokerNOMS HealthcareStart: 06-15-2024 End: 24-82-7192Bkmaumx use and exposureSmokeless tobacco non-userUnSumma Health Barberton Campus Work Phone: How often to you have a drink containing alcohol?Never [facility] HospitalStart: 13-61-9629Qog many standard drinks containing alcohol do you have on a typical day?Patient does not drinkSheltering Arms Hospital Work Phone: In the past 12 months, was there a time when you were not able to pay the mortgage or rent on time?NoSheltering Arms Hospital Work Phone: Start: 06-11-2024 End: 22-46-5456Tnicexdn to SARS-CoV-2 (event)Not sureUnSumma Health Barberton CampusStart: 02-15-2025 End: 50-63-5782MbkPoxhfv (finding)[facility] SouthHow often do you need to have someone help you when you read instructions, pamphlets, or other written material from your doctor or pharmacy [SILS][facility] Work Phone: Tobacco smoking status NHISTobacco smoking consumption unknownMercy Health Kings Mills Hospitalexual OrientationLesbian, smart or homosexualCVP Physicians Work Phone: NEGATED: Highlighted rowAlcohol intakeAlcohol Use DetailsCVP Physicians Medical Equipment Procedure CodeEquipment CodeEquipment Original TextEquipment IdentifierDates [id number]: 12-30-2023 End: 02-83-2281PKN DIRECTED TO ADMINISTER INSULIN TWICE [id number]: 02-02-2024 Goals DatePatient GoalDesired Activity/State Functional Status MfhdBqfwvtwuetAqtcuqQrouzhrn65-83-1824Shfwcfk Health Questionnaire 2 item (PHQ- 2) [Reported][facility] HospitalQjlxldjmtn64-86-7357Bfqlbca Health Questionnaire 2 item (PHQ- 2) [Reported][facility] HospitalFsdnvltrlu46-11-8264Govpzxu Health Questionnaire 2 item (PHQ- 2) [Reported][facility] HospitalXycarapeke53-93-4590HUZ-1 quick depression assessment panel [Reported.PHQ][facility] HospitalKmincycayv88-94-5863Szaibnm Health Questionnaire 2 item (PHQ- 2) [Reported][facility] HospitalFqkfqdfzfi17-08-7403Rzwtmdn Health Questionnaire 2 item (PHQ- 2) [Reported][facility] HospitalHfmgbjsaib34-20-0855Uixldecigi statusPatient at Baseline [facility] Work Phone: [phone]ylobpc statusPatient Not at Baseline [facility] Work Phone: [phone] Health Questionnaire 2 item (PHQ-2) [Reported][facility] Mental Status BebfPffadcygpgTbaljqWtlejdtw25-57-1473Rynxzotjz functionCognitive Status Patient at BaselineHolmes [facility] Work Phone: [phone] functionCognitive Status Patient at BaselineHolmes County [facility] Work Phone: Clinical Notes 09-20-2021 to 09-20-2025 Note Date & PmuiWlcqYtoecxdm36-49-6630 History of Present illness Narrative* Johnna Cedeño, [...] mouth Daily 100 tablet 2 Continuous Glucose Administrator Social Welfare (Dexcom G7 Administrator Social Welfare) device 1 Device yearly 1 each 0 [...] Other Past Medical History: Diagnosis Date A-fib ([facility]) 2022 with RVR Anxiety Aortic stenosis 06/2022 Carotid artery disease Cataract CHF (congestive heart failure) ([facility]) 06/2022 Colon polyp 2016 Diverticulitis DM (diabetes mellitus) ([facility]) HLD (hyperlipidemia) HTN (hypertension) LA (myocardial infarction) ([facility]) NSTEMI, initial episode of care ([facility]) 2022 Retinal hemorrhage Past Surgical History: Procedure [...] No follow-ups on file. documented in this encounterSalem Memorial District HospitalUgwvupeovs25-49-3946 History of Present illness Narrative* Alexis Gilmore [...] History: Past Medical History: Diagnosis Date A-fib ([facility]) 2022 with RVR Anxiety Aortic stenosis 06/2022 Carotid artery disease Cataract CHF (congestive heart failure) ([facility]) 06/2022 Colon polyp 2016 Diverticulitis DM (diabetes mellitus) ([facility]) HLD (hyperlipidemia) HTN (hypertension) LA (myocardial infarction) ([facility]) NSTEMI, initial episode of care ([facility]) 2022 Retinal hemorrhage Medications: Current Outpatient Medications: [...] Disp: 100 tablet, Rfl: 2 Continuous Glucose Administrator Social Welfare (Dexcom G7 Administrator Social Welfare) device, 1 Device yearly, Disp: 1 each, [...] Strain: Low Risk (02/18/2025) Received from [facility] Overall Financial Resource Strain (CARDIA) Difficulty of Paying Living Expenses: Not hard at all Food Insecurity: No Food Insecurity (02/18/2025) Received from [facility] Hunger Vital Sign Within the past 12 months, you worried that your food would run out before you got the money to buymore.: Never true Ran Out of Food in the Last Year: Not on file Transportation Needs: No Transportation Needs (02/18/2025) Received from [facility] Transportation In the past 12 months, has lack of transportation kept you from medical appointments or from getting medications?: No Lack of Transportation (Non-Medical): Not on file Physical Activity: Inactive (06/22/2024) [facility] Exercise Vital Sign On average, how many days per week do you engage in moderate to strenuous exercise (like a brisk walk)?: 0 days On average, how many minutes do you engage in exercise at this level?: 0 min Stress: Stress Concern Present (12/03/2023) Received from [facility] [place] [employer] Occupational [employer] - Occupational Stress Questionnaire Feeling of Stress : To some extent Social Connections: Moderately Isolated (12/03/2023) Received from [facility] Social Connection and Isolation Panel In a typical week, how many times do you talk on the phone with family, friends, or neighbors?: More than three times a week How often do you get together with friends or relatives?: More than three times a week How often do you attend buddhism or yazdanism services?: Never Do you belong to any clubs or organizations such as buddhism groups, unions, fraternal or athletic groups, or school groups?: No How often do you attend meetings of the clubs or organizations you belong to?: Never Are you , , , , never , or living with a partner?: Intimate Partner Violence: Not At Risk (04/26/2025) Received from [facility] Humiliation, Afraid, Rape, and Kick questionnaire [...] Stability: Low Risk (02/18/2025) Received from [facility] Housing Stability Vital Sign In the last 12 months, was there a time when you were not able to pay the mortgage or rent on time?: No Number of Times Moved in the Last Year: Not on file At any time in the past 12 months, were you homeless or living in a half-way (including now)?: No ROS: General: denies fever, [...] positive edema to left foot. NEURO: 5.07 Louisa Truong monofilament test diminished to digits and forefoot bilaterally 125Hz tuning fork diminished to 1st MPJ bilaterally ORTHO: Positive pain on palpation to toenails of the left 1,2,3,4,5 toes and right 1,2,3,4,5 toes Flexion deformities digits 2 through 5 bilateral Positive pain on palpation of right retrocalcaneal bursa and Achilles with negative palpable [place] ASSESSMENT 1. Contracture of right ankle 2. [...] timeframe Alexis Gilmore DPM documented in this encounterSalem Memorial District HospitalVrqmxmewav05-09-1853 History of Present illness Narrative* Johnna Cedeño [...] these instructions. Chronic kidney disease, stage 3b ([facility]) This is a chronic medical condition that [...] mouth Daily 100 tablet 2 Continuous Glucose Administrator Social Welfare (Dexcom G7 Administrator Social Welfare) device 1 Device yearly 1 each 0 [...] [5] Past Medical History: Diagnosis Date A-fib ([facility]) 2022 with RVR Anxiety Aortic stenosis 06/2022 Carotid artery disease Cataract CHF (congestive heart failure) ([facility]) 06/2022 Colon polyp 2016 Diverticulitis DM (diabetes mellitus) ([facility]) HLD (hyperlipidemia) HTN (hypertension) LA (myocardial infarction) ([facility]) NSTEMI, initial episode of care ([facility]) 2022 Retinal hemorrhage [6] Past Surgical History: [...] HYSTERECTOMY W/ BILATERAL SALPINGOOPHORECTOMY documented in this encounterSalem Memorial District HospitalCwilqvlhex37-39-5886 Evaluation note* Type Assessment Date assessment Vitreous [...] ation), bilateral: H26.493 [facility] Work Phone: 1([phone] 154-351310-03-2025 History of Present illness Narrative* Encounter Date [...] bandage. 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 Patient denies any pain [...] and left eye. [facility] Work Phone: 1(185) 664-698510-03-2025 Instructions* Date Instruction Additional Infor mation Impression/Plan [...] of right eye [facility] Work Phone: [phone] Evaluation note* Type Assessment Date assessment Type [...] : H43.11. Right [facility] Work Phone: [phone]) 754-256909-18-2025 History of Present illness Narrative* Encounter Date [...] bandage. 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 Patient denies any pain [...] described as blurring. Patient denies eye pain. [facility] Phys[facility] Work Phone: [phone]) 879-451709-18-2025 Instructions* Date Instruction Additional Infor ralphleena Impression/Plan [...] of right eye [facility] Physicians Work Phone: [phone] 258-192009-17-2025 History of Present illness Narrative* Alexis Gilmore, [...] History: Past Medical History: Diagnosis Date A-fib ([facility]) 2022 with RVR Anxiety Aortic stenosis 06/2022 Carotid artery disease Cataract CHF (congestive heart failure) ([facility]) 06/2022 Colon polyp 2016 Diverticulitis DM (diabetes mellitus) ([facility]) HLD (hyperlipidemia) HTN (hypertension) LA (myocardial infarction) ([facility]) NSTEMI, initial episode of care ([facility]) 2022 Retinal hemorrhage Medications: Current Outpatient Medications: [...] Disp: 100 tablet, Rfl: 2 Continuous Glucose Administrator Social Welfare (Dexcom G7 Administrator Social Welfare) device, 1 Device yearly, Disp: 1 each, [...] MG tablet, , Disp: , Rfl: HYDROcodone-acetaminophen ([place]) 5-325 MG tablet, Take 1 tablet by [...] positive edema to left foot. NEURO: 5.07 Louisa Truong monofilament test diminished to digits and [...] medication Alexis Gilmore DPM documented in this encounterSalem Memorial District [id number] History of Present illness Narrative* Johnna Cedeño, INFORMATION SYSTEMS SPECIALIST - 07/20/2025 11:30 AM EDT Images [...] mouth Daily 100 tablet 2 Continuous Glucose Administrator Social Welfare (Dexcom G7 Administrator Social Welfare) device 1 Device yearly 1 each 0 [...] 3 hydrALAZINE (Apresoline) 100 MG tablet HYDROcodone-acetaminophen ([place]) 5-325 MG tablet Take 1 tablet by [...] Other Past Medical History: Diagnosis Date A-fib ([facility]) 2022 with RVR Anxiety Aortic stenosis 06/2022 Carotid artery disease Cataract CHF (congestive heart failure) ([facility]) 06/2022 Colon polyp 2016 Diverticulitis DM (diabetes mellitus) ([facility]) HLD (hyperlipidemia) HTN (hypertension) LA (myocardial infarction) ([facility]) NSTEMI, initial episode of care ([facility]) 2022 Retinal hemorrhage Past Surgical History: Procedure [...] current use of insulin, unspecified retinopathy severity ([facility]) - POCT glycosylated hemoglobin (Hb A1C) docked [...] mouth Daily 100 tablet 2 Continuous Glucose Administrator Social Welfare (Dexcom G7 Administrator Social Welfare) device 1 Device yearly 1 each 0 [...] 3 hydrALAZINE (Apresoline) 100 MG tablet HYDROcodone-acetaminophen ([place]) 5-325 MG tablet Take 1 tablet by [...] Other Past Medical History: Diagnosis Date A-fib ([facility]) 2022 with RVR Anxiety Aortic stenosis 06/2022 Carotid artery disease Cataract CHF (congestive heart failure) ([facility]) 06/2022 Colon polyp 2016 Diverticulitis DM (diabetes mellitus) ([facility]) HLD (hyperlipidemia) HTN (hypertension) LA (myocardial infarction) ([facility]) NSTEMI, initial episode of care ([facility]) 2022 Retinal hemorrhage Past Surgical History: Procedure [...] No follow-ups on file. documented in this encounterSalem Memorial District [id number] History of Present illness Narrative* Alexis Gilmore [...] History: Past Medical History: Diagnosis Date A-fib ([facility]) 2022 with RVR Anxiety Aortic stenosis 06/2022 Carotid artery disease Cataract CHF (congestive heart failure) ([facility]) 06/2022 Colon polyp 2016 Diverticulitis DM (diabetes mellitus) ([facility]) HLD (hyperlipidemia) HTN (hypertension) LA (myocardial infarction) ([facility]) NSTEMI, initial episode of care ([facility]) 2022 Retinal hemorrhage Medications: Current Outpatient Medications: [...] Disp: 100 tablet, Rfl: 2 Continuous Glucose Administrator Social Welfare (Dexcom G7 Administrator Social Welfare) device, 1 Device yearly, Disp: 1 each, [...] Strain: Low Risk (02/18/2025) Received from [facility] Overall Financial Resource Strain (CARDIA) Difficulty of Paying Living Expenses: Not hard at all Food Insecurity: No Food Insecurity (02/18/2025) Received from [facility] Hunger Vital Sign Within the past 12 months, you worried that your food would run out before you got the money to buymore.: Never true Ran Out of Food in the Last Year: Not on file Transportation Needs: No Transportation Needs (02/18/2025) Received from [facility] Transportation In the past 12 months, has lack of transportation kept you from medical appointments or from getting medications?: No Lack of Transportation (Non-Medical): Not on file Physical Activity: Inactive (06/22/2024) Received from [facility] Exercise Vital Sign Days of Exercise per Week: 0 days Minutes of Exercise per Session: 0 min Stress: Stress Concern Present (12/03/2023) Received from [facility] [place] [facility] [employer] - Occupational Stress Questionnaire Feeling of Stress : To some extent Social Connections: Moderately Isolated (12/03/2023) Received from [facility] Social Connection and Isolation Panel [NHANES] Frequency of Communication with Friends and Family: More than three times a week Frequency of Social Gatherings with Friends and Family: More than three times a week Attends Restoration Services: Never Active Member of Clubs or Organizations: No Attends Club or Organization Meetings: Never Marital Status: Intimate Partner Violence: Not At Risk (04/26/2025) Received from [facility] Humiliation, Afraid, Rape, and Kick questionnaire Fear of Current or Ex-Partner: No Emotionally Abused: No Physically Abused: No Sexually Abused: No Housing Stability: Low Risk (02/18/2025) Received from [facility] Housing Stability Vital Sign In the last 12 months, was there a time when you were not able to pay the mortgage or rent on time?: No Number of Times Moved in the Last Year: Not on file At any time in the past 12 months, were you homeless or living in a half-way (including now)?: No ROS: Gastrointestinal: denies abdominal pain, ulcers, or changes in appetite or bowel habits Musculoskeletal: positive hx of arthritis, loss of strength, with positive history of back pain Cardiovascular: denies CP, palpitations, irregular rhythms. Positive history of CHF and aortic valve replacement with blood thinner and LA in the past OBJECTIVE LE EXAM: DERM: [...] positive edema to left foot. NEURO: 5.07 Louisa Truong monofilament test diminished to digits and forefoot bilaterally 125Hz tuning fork diminished to 1st MPJ bilaterally ORTHO: Positive pain on palpation to toenails of the left 1,2,3,4,5 toes and right 1,2,3,4,5 toes Flexion deformities digits 2 through 5 bilateral positive pain on palpation of right retrocalcaneal bursa and Achilles with negative palpable [place] ASSESSMENT 1. Contracture of right ankle 2. Achilles tendinitis, right leg 3. Diabetes mellitus due to underlying condition with diabetic polyneuropathy, unspecified whether intermediate project manager insulin use (HCC) PLAN Patient given prescription [...] risks, alternatives, benefits, post op complications and intermediate project manager expectations were discussed including but not limited to: infection,bone infection,wound dehiscence hardware failure and irritation,wound dehiscence,delay union/mal union/non union of bone. RSDS,neuroma,duty limitations,DVT/PE, LA,nerve damage, scar, loss of sensation, swelling. Pt [...] 2025 Alexis Gilmore DPM documented in this encounterSalem Memorial District [id number] History of Present illness Narrative* Teena Delcid DO - 07/12/2025 1:00 PM EDT Images from the original note were not included. Assessment/Plan Diagnoses and all orders for this visit: VH (vitreous hemorrhage), right ([facility]) - Ms. Patel has a new VH of indeterminate time in right eye (OD). Last visit [facility] was 20/25. Advised seeing retina due to considerable decline in vision. 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 Hopefully she is not dealing with a TRD. Advised prompt return to [facility]. Dry eyes - Dry Eyes OU -- Environmental changes to minimize dryness and exposure and the use of artificial tears were recommended. documented in this encounterSalem Memorial District [id number] History of Present illness Narrative* Alexis Gilmore [...] procedure in the past Pt presents [facility] for follow up tx. Patient presents today [...] History: Past Medical History: Diagnosis Date A-fib ([facility]) 2022 with RVR Anxiety Aortic stenosis 06/2022 Carotid artery disease Cataract CHF (congestive heart failure) ([facility]) 06/2022 Colon polyp 2016 Diverticulitis DM (diabetes mellitus) ([facility]) HLD (hyperlipidemia) HTN (hypertension) LA (myocardial infarction) ([facility]) NSTEMI, initial episode of care ([facility]) 2022 Retinal hemorrhage Medications: Current Outpatient Medications: [...] Disp: 100 tablet, Rfl: 2 Continuous Glucose Administrator Social Welfare (Dexcom G7 Administrator Social Welfare) device, 1 Device yearly, Disp: 1 each, [...] Strain: Low Risk (02/18/2025) Received from [facility] Overall Financial Resource Strain (CARDIA) Difficulty of Paying Living Expenses: Not hard at all Food Insecurity: No Food Insecurity (02/18/2025) Received from [facility] Hunger Vital Sign Within the past 12 months, you worried that your food would run out before you got the money to buymore.: Never true Ran Out of Food in the Last Year: Not on file Transportation Needs: No Transportation Needs (02/18/2025) Received from [facility] Transportation In the past 12 months, has lack of transportation kept you from medical appointments or from getting medications?: No Lack of Transportation (Non-Medical): Not on file Physical Activity: Inactive (06/22/2024) Received from [facility] Exercise Vital Sign Days of Exercise per Week: 0 days Minutes of Exercise per Session: 0 min Stress: Stress Concern Present (12/03/2023) Received from [facility] [place] [employer] Occupational Health - Occupational Stress Questionnaire Feeling of Stress : To some extent Social Connections: Moderately Isolated (12/03/2023) Received from [facility] Social Connection and Isolation Panel [NHANES] Frequency of Communication with Friends and Family: More than three times a week Frequency of Social Gatherings with Friends and Family: More than three times a week Attends Restoration Services: Never Active Member of Clubs or Organizations: No Attends Club or Organization Meetings: Never Marital Status: Intimate Partner Violence: Not At Risk (04/26/2025) Received from [facility] Humiliation, Afraid, Rape, and Kick questionnaire Fear of Current or Ex-Partner: No Emotionally Abused: No Physically Abused: No Sexually Abused: No Housing Stability: Low Risk (02/18/2025) Received from [facility] Housing Stability Vital Sign In the last 12 months, was there a time when you were not able to pay the mortgage or rent on time?: No Number of Times Moved in the Last Year: Not on file At any time in the past 12 months, were you homeless or living in a half-way (including now)?: No ROS: Gastrointestinal: denies abdominal pain, ulcers, or changes in appetite or bowel habits Musculoskeletal: positive hx of arthritis, loss of strength, with positive history of back pain Cardiovascular: denies CP, palpitations, irregular rhythms. Positive history of CHF and aortic valve replacement with blood thinner and LA in the past OBJECTIVE LE EXAM: DERM: [...] positive edema to left foot. NEURO: 5.07 Louisa Truong monofilament test diminished to digits and forefoot bilaterally 125Hz tuning fork diminished to 1st MPJ bilaterally ORTHO: Positive pain on palpation to toenails of the left 1,2,3,4,5 toes and right 1,2,3,4,5 toes Flexion deformities digits 2 through 5 bilateral positive pain on palpation of right retrocalcaneal bursa and Achilles with negative palpable [place] ASSESSMENT 1. Achilles tendinitis, right leg 2. Contracture of right ankle 3. Diabetes mellitus due to underlying condition with diabetic polyneuropathy, unspecified whether intermediate project manager insulin use (HCC) 4. Pain due to onychomycosis of toenails of both feet PLAN Pt to continue with ice to posterior right achilles region. Pt to take nsaids as needed PRN pain Patient returned to walking boot Discussed conservative and surgical treatment options for patient today including postoperative time frame and surgical procedure in detail. Patient may continue with conservative treatments including [id number] anti- inflammatories and other treatments suggested today. Patient may want to be s cheduled for surgical intervention in the near future. Patient have right heel Tenex procedure withAchilles tenotomy under ultrasonic guidance and [place] for postoperative pain and sees Dr. Jayme [...] gear Alexis Gilmore DPM documented in this encounterSalem Memorial District [id number] NoteUT Cardiology - [facility] Subjective Diann Patel is a 69 [...] aortic valve stenosis Coronary artery disease involving [place] coronary artery of [place] heart with angina pectoris PAF (paroxysmal atrial [...] myocardial infarction) (CMS/HCC) Coronary artery disease involving [place] heart Acute anemia Dry eyes Epiretinal membrane (ERM) of both eyes Carotid stenosis PCO (posterior capsular opacification), bilateral Weakness 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 [...] angioplasty. She was admitted 02/08/2024 to the [facility] with ?viral infection, weakness, low blood pressure, diarrhea and amlodipine, carvedilol, hydralazine, insulin and spironolactone were stopped. I resumed medications for hypertension on 05/10/2024. On 02/18/2025 she was admitted to [facility] with decompensated diastolic heart failure, anemia and type II NSTEMI. Cardiac catheterization did not show targets for revascula (more content not included)...[facility]07-16-2025 History of Present illness Narrative* Dale Cronin MD - 05/25/2025 11:00 AM EDT Images from the original note were not included. Diann Patel 1955 Diann Patel is a 69 y.o. female presents with chief complaint of Consult (Colonoscopy- Hx of colon polyps- Last colonoscopy was 2020 Jeannie/Regino Merrill at [facility] and she wants to have pt get an upper and lower scope done but in [place]. Pt would rather have this done here.) HPI: The patient is an 69-year-old female who presents to discuss EGD and colonoscopy. Patient has a history of anemia. She was in hospital in [place] about 3 months ago and required blood [...] (CELEXA) 20 mg, Oral, Daily Continuous Glucose Administrator Social Welfare (Dexcom G7 Administrator Social Welfare) device 1 Device, Does not apply, Yearly [...] HISTORY: Past Medical History: Diagnosis Date A-fib ([facility]) 2022 with RVR Anxiety Aortic stenosis 06/2022 Carotid artery disease Cataract CHF (congestive heart failure) ([facility]) 06/2022 Colon polyp 2016 Diverticulitis DM (diabetes mellitus) ([facility]) HLD (hyperlipidemia) HTN (hypertension) LA (myocardial infarction) ([facility]) NSTEMI, initial episode of care ([facility]) 2022 Retinal hemorrhage Social History Tobacco Use [...] colonoscopy were discussed. We will contact her patient service technician pst for approval to hold the Xarelto prior to the procedure. If the colonoscopy is normal, patient will not require another screening colonoscopy. documented in this encounterSalem Memorial District [id number] NoteAre you on Oxygen? Yes or No If yes, notify Dr. Light If yes, when do you wear it? All day, only when short of breath, only at night. How many liters are you on? [place] Sleepiness Scale Please rate the following as [...] sleep... Acting out your dreams... Difficulty ambulating... Incontinence...[facility]06-17-2025 [facility] New Patient Visit - History & [...] anemia, referred by cardiology Recently admitted to [facility] this past February 2025 w/ decompensated diastolic [...] a h/o anemia. PREVIOUS LABS/IMAGING/ENDOSCOPY: CLN 07/12/2021: [facility] Attending MD: Sae Paz MD Procedure: [...] was done by the physician, nurse and utility technician using the patient's name, date and [...] B12/Folate/Iron studies: Lab Results Component Value Date [id number] 02/18/2025 FOLATE 35.0 02/18/2025 IRON 31 (L) 02/18/2025 TIBC 367 02/18/2025 UIBC 336.0 02/18/2025 IRONSAT 8 (L) 02/18/2025 FERRITIN 18.0 02/18/2025 IBD Biomarkers No results found for: CRP No results found for: SEDRATE Viral Hepatitis No results found for: HEPAIGM , HAV , HEPBSAG , HEPBSAB , HEPBEAB , HEPBIGM , HEPBCAB , HEPBCOREAB , HBVNAT , HCVSC (more content not included)...[facility]06-05-2025 History of Present illness Narrative* Johnna Cedeño INFORMATION SYSTEMS SPECIALIST - 04/14/2025 1:30 PM EDT Images [...] clopidogrel (Plavix) 75 MG tablet Continuous Glucose Administrator Social Welfare (Dexcom G7 Administrator Social Welfare) device 1 Device yearly 1 each 0 [...] Do you have a medical power of customizer?: No Objective : BP 122/62 Pulse 69 [...] 04/14/2026 Print requisition?: No 1. 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 [...] at this time. 8. Peripheral vascular disease ([facility]/HCC) This is a chronic medical condition that [...] macular edema associated withtype 2 diabetes mellitus ([facility]/HCC) This is a chronic medical condition that is stable since last assessment. No changes in treatment are suggested at this time. 12. Type 2 diabetes mellitus with hyperglycemia, with long-term current use of insulin ([facility]) Discussed today the importance of proper diabetic [...] complication, unspecified asthma severity, unspecified whether persistent ([facility]) This is a chronic medical condition that is stable since last assessment. No changes in treatment are suggested at this time. 15. Arteriosclerosis of arterial coronary artery bypass graft ([facility]) This is a chronic medical condition that is stable since last assessment. No changes in treatment are suggested at this time. 16. Estrogen deficiency Await bone density - DEXA bone density; Future 17. Chronic migraine with aura without status migrainosus, not intractable ([facility]) This is a chronic medical condition that [...] edema associated with type 2 diabetes mellitus ([facility]/HCC) This is a chronic medical condition that is stable since last assessment. No changes in treatment are suggested at this time. 20. 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 No changes in treatment are suggested at this time. 21. Bilateral carotid artery stenosis This is a chronic medical condition that is stable since last assessment. No changes in treatment are suggested at this time. 22. New onset of congestive heart failure ([facility]) This is a chronic medical condition that is stable since last assessment. No changes in treatment are suggested at this time. 23. NSTEMI (non-ST elevated myocardial infarction) ([facility]) This is a chronic medical condition that [...] exams. 26. Routine general medical examination at [facility] Reviewed all relevant preventative screenings with the patient in detail. Medicare Wellness form completed and will be scanned into patient's chart. All needed testing was ordered. Will continue withyearly Medicare Wellness exams. 27. Screening for colon cancer Await colonoscopy - Ambulatory referral to General Surgery; Future Electronically signed by Johnna Cedeño NP on April 14, 2025 documented in this encounterSalem Memorial District [id number] History of Present illness Narrative* Alexis Gilmore [...] History: Past Medical History: Diagnosis Date [place] 2022 with RVR Anxiety Aortic stenosis 06/2022 Carotid artery disease ([facility] Cataract CHF (congestive heart failure) ([facility]) 06/2022 Colon polyp 2016 Diverticulitis DM (diabetes mellitus) ([facility]) HLD (hyperlipidemia) ([facility]) HTN (hypertension) ([facility] LA (myocardial infarction) ([facility]) NSTEMI, initial episode of care ([facility]) 2022 Retinal hemorrhage Medications: Current Outpatient Medications: [...] tablet, , Disp: , Rfl: Continuous Glucose Administrator Social Welfare (Dexcom G7 Administrator Social Welfare) device, 1 Device yearly, Disp: 1 each, [...] Strain: Low Risk (02/18/2025) Received from [facility] Overall Financial Resource Strain (CARDIA) Difficulty of Paying Living Expenses: Not hard at all Food Insecurity: No Food Insecurity (02/18/2025) Received from [facility] Hunger Vital Sign Within the past 12 months, you worried that your food would run out before you got the money to buymore.: Never true Ran Out of Food in the Last Year: Not on file Transportation Needs: No Transportation Needs (02/18/2025) Received from [facility] Transportation In the past 12 months, has lack of transportation kept you from medical appointments or from getting medications?: No Lack of Transportation (Non-Medical): Not on file Physical Activity: Inactive (06/22/2024) Received from [facility] Exercise Vital Sign Days of Exercise per Week: 0 days Minutes of Exercise per Session: 0 min Stress: Stress Concern Present (12/03/2023) Received from [facility] [place] [employer] - Occupational Stress Questionnaire Feeling of Stress : To some extent Social Connections: Moderately Isolated (12/03/2023) Received from [facility] Social Connection and Isolation Panel [NHANES] Frequency of Communication with Friends and Family: More than three times a week Frequency of Social Gatherings with Friends and Family: More than three times a week Attends Restoration Services: Never Active Member of Clubs or Organizations: No Attends Club or Organization Meetings: Never Marital Status: Intimate Partner Violence: Unknown (02/18/2025) Received from [facility] Humiliation, Afraid, Rape, and Kick questionnaire Fear of Current or Ex-Partner: No Emotionally Abused: Not on file Physically Abused: Not on file Sexually Abused: Not on file Housing Stability: Low Risk (02/18/2025) Received from [facility] Housing Stability Vital Sign In the last 12 months, was there a time when you were not able to pay the mortgage or rent on time?: No Number of Times Moved in the Last Year: Not on file At any time in the past 12 months, were you homeless or living in a half-way (including now)?: No ROS: General: denies fever, [...] positive edema to left foot. NEURO: 5.07 Louisa Truong monofilament test diminished to digits and forefoot bilaterally 125Hz tuning fork diminished to 1st MPJ bilaterally ORTHO: Positive pain on palpation to toenails of the left 1,2,3,4,5 toes and right 1,2,3,4,5 toes Flexion deformities digits 2 through 5 bilateral diminished pain on palpation of right retrocalcaneal bursa and Achilles with negative palpable [place] ASSESSMENT 1. Contracture of right ankle 2. Achilles tendinitis, right leg 3. Diabetes mellitus due to underlying condition with diabetic polyneuropathy, unspecified whether correction insulin use ([facility]) 4. Pain due to onychomycosis of toenails of both feet PLAN Pt to continue with ice to posterior right achilles region. Pt to take nsaids as needed PRN pain Discussed conservative and surgical treatment options for patient today including postoperative time frame and surgical procedure in detail. Patient may continue with conservative treatments including jlqx-gvd-reesjxo anti- inflammatories and other treatments suggested today. [...] gear Alexis Gilmore DPM documented in this encounterSalem Memorial District [id number] NoteUT Cardiology - [facility] Subjective Diann Patel is a 69 y.o. year old female patient being seen for follow up heart cath at [facility]. Patient states she not taking the Eliquis. [...] valve stenosis ??? Coronary artery disease involving moapa coronary artery of moapa heart with angina pectoris ??? PAF (paroxysmal [...] infarction) (CMS/HCC) ??? Coronary artery disease involving moapa heart ??? Acute anemia ??? Dry eyes [...] angioplasty. She was admitted 02/08/2024 to the [facility] with ?viral infection, weakness, low blood pressure, diarrhea and amlodipine, carvedilol, hydralazine, insulin and spironolactone were stopped. I resumed medications for hypertension on 05/10/2024. On 02/18/2025 she was admitted to [facility] with decompensated diastolic heart failure, anemia and [...] to have some edilberto (more content not included)...[facility]04-22-2025 History of Present illness Narrative* Johnna Cedeño, INFORMATION SYSTEMS SPECIALIST - 03/01/2025 11:00 AM EDT Images [...] clopidogrel (Plavix) 75 MG tablet Continuous Glucose Administrator Social Welfare (Dexcom G7 Administrator Social Welfare) device 1 Device yearly 1 each 0 [...] Other Past Medical History: Diagnosis Date A-fib [place] 2022 with RVR Anxiety Aortic stenosis 06/2022 Carotid artery disease [place] Cataract CHF (congestive heart failure) ([facility] 06/2022 Colon polyp 2016 Diverticulitis DM (diabetes mellitus) ([facility]) HLD (hyperlipidemia) [place] HTN (hypertension) [place] LA (myocardial infarction) ([facility] NSTEMI, initial episode of care ([facility] 2022 Retinal hemorrhage Past Surgical History: Procedure [...] hyperglycemia, with long-term current use of insulin ([facility]) - insulin glargine (Lantus) 100 UNIT/ML pen; [...] referral to rheumatology. Vitreous hemorrhage, left eye ([facility]) This is a chronic medical condition that is stable since last assessment. No changes in treatment are suggested at this time. Vitreous hemorrhage, right eye (CMS/HCC) This is a chronic medical condition that is stable since last assessment. No changes in treatment are suggested at this time. Atherosclerosis of moapa arteries of right leg with ulceration of [...] No follow-ups on file. documented in this encounterSalem Memorial District [id number] NoteiMEDS - Medication Counseling Note Who received [...] Bach, PharmD Candidate Maria Victoria Quigley, ParagD [facility] Outpatient Pharmacy - iMEDS 03/02/25[facility]04-15-2025 NoteHospital Medicine Discharge Summary Final Discharge Diagnosis: [...] chest pain. She was transferred here from [place] for NSTEMI and new onset HFrEF. Vitals remarkable for BP 140/54, HR 73, on 6L oxygen. Labs notable for peak troponin 929. EKG showed NSR with non-specific ST changes. Echo on 08/18/2023 shows EF 55 to 60%, mild TR, mild mitral stenosis, mild MR, normal bioprosthetic aortic valve with no significant valvular or paravalvular regurgitation, mild MN. Patient treated for new onset CHF with [...] to acute anemia and likely type II LA. During hospital stay, patient had an episode [...] Center 03/02/2025 2:45 PM Valente Chacon MD [facility] Your medication list START taking these [...] Medications These medications were sent to [facility] [address] [place] [address] [address] [facility] [place] [address], [place] [address] carvedilol 12.5 mg tablet dicyclomine 10 mg capsule furosemide 40 mg tablet Inform[employer] (more content not included)...[facility] 02-22-2025 Note02/22/25 0500 Home Oxygen Therapy Evaluation [...] patient was placed on 2L nc @ 01:21[facility]25 NotePatient admitted to the hospital for: New onset of congestive heart failure. Chart echo from 02/21/2025 reports: EF 65 %. Current echo report does Not qualify for Cardiac Rehab services per CMS eligibility criteria. A Cardiac Rehab referral diagnosis and code must also meet CMS criteria. Palmira Ballesteros RN, BSN Cardiology Outpatient Coordinator Cardiopulmonary RehabUnMemorial Health [facility]04-14-2025 NoteAs above [facility]04-14-2025 Note-Patient had angiogram on which showed patent [...] overnight desaturation study - Follow-up on the echoUnMemorial Health [facility]04-14-2025 Note- Resume home medicationsUnMemorial Health System [facility]04-14-2025 Note- In 2012Un[facility]04-14-2025 Note-Anticoagulation has been on hold, continue aspirin, repeat hemoglobin daily. No apparent source of bleeding. Patient states that she had her screening colonoscopiesUnMemorial Health System [facility] Hospital04-14-2025 Note-Resume home insulin, adjust based on blood sugarsUnMemorial Health System [facility] 02-21-2025 Note- On Eliquis 5mg BID at home, rate controlled on carvedilol 25mg BID. Rate controlled here. Anticoagulation has been on hold given low hemoglobin. Patient will need to be evaluated for left atrial appendage occlusion procedure outpatientUnMemorial Health System [facility]04-14-2025 NoteHospital Medicine Daily Progress Note - 02/21/2025 10:56 AM; Room: [address] [place] [address] Admission: 02/18/2025 12:20 PM; Length of stay: 3 days THE HOSPITALIST TEAM PREFERS TO USE [employer] FOR NON-URGENT COMMUNICATION 7AM-7PM. IF I DO NOT RESPOND WITHIN 20 MINUTES OR URGENT MATTERS, PLEASE CALL THROUGH THE HEATING AND BLENDING SUPERVISOR. FROM 7PM-7AM, PLEASE PAGE [phone](COVR). Code Status: Full Code Barriers to Discharge: [...] the echo NSTEMI (non-ST elevated myocardial infarction) ([facility]) As above Coronary artery disease involving moapa heart As above S/P CABG x 4 - In 2012 Essential hypertension - Resume home medications PAF (paroxysmal atrial fibrillation) ([facility]) - On Eliquis 5mg BID at home, rate controlled on carvedilol 25mg BID. Rate controlled here. Anticoagulation has been on hold given low hemoglobin. 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 Yes [...] able to send link and activate MyChart? 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 PAF (paroxysmal atrial [...] diabetes mellitus (CMS/HCC) Poorly controlled diabetes mellitus ([facility]/HCC) Proliferative diabetic retinopathy associated with type 2 diabetes mellitus (CMS/HCC) 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 associated with type 2 diabetes mellitus (CMS/HCC) Staphylococcal infectious disease Type 2 diabetes mellitus with hyperglycemia ([facility]) Vitreous hemorrhage of right eye ([facility]) Mechanical complication of internal orthopedic device, implant or graft Pseudophakia New onset of congestive heart failure ([facility]) NSTEMI (non-ST elevated myocardial infarction) ([facility]) Coronary artery disease involving moapa heart Acute anemia Past Medical History: Diagnosis Date A-fib ([facility]) Abnormal ECG Aortic valve stenosis Arrhythmia Coronary artery disease Diabetes mellitus ([facility]/HCC) Hypertension Peripheral vascular disease Past Surgical History: [...] Equipment: Walker rolling, Cane, Wheelchair-manual (sc, gb, [facility]) Home Layout: Two level, Full bath main level, Able to live on main level with bedroom/bathroom Home Access: Stairs to enter with rails (2) Bathroom Shower/Tub: Tub/shower unit Prior Level of Function Prior Function Level of [place]: Independent with ADLs and functional transfers, Independent [...] such as br (more content not included)... [facility]04-14-2025 NoteAdult Nutrition Assessment: Name: Diann Patel Date: 1955 Date of Visit: 02/21/25 Admission Dx: New onset of congestive heart failure ([facility]) [I50.9] Reason for assessment: high risk Information obtained from: patient and medical record Past Medical History: Diagnosis Date A-fib ([facility]) Abnormal ECG Aortic valve stenosis Arrhythmia Coronary artery disease Diabetes mellitus ([facility]) Hypertension Peripheral vascular disease Current Medications: [Held [...] toast with butter, fruit cup. Thanks! 02/21/25 0760 02/18/25 1724 Regular Diet Heart Healthy/HTN, CABG,Stroke, (2gNA, low fat, low cholesterol) Diet effective now Question Answer Comment Room Service? Yes Fat restriction: Heart Healthy/HTN, CABG,Stroke, (2gNA, low fat, low cholesterol) 02/18/25 8806 Nutrition Risk: Low Nutrition Diagnosis: No nutrition diagnosis at this time Malnutrition Assessment: Per Registered Dietitian assessment and evaluation, patient does not currently meet criteria OR there is not enough information to support the diagnosis of malnutrition per the clinical criteria set by the Academy of Nutrition and Dietetics (AND) and the [place] Society of Enteral and Parenteral Nutrition (ASPEN). (more content not included)...[facility]04-14-2025 Note [facility]TP CARDIOLOGY INPATIENT PROGRESS NOTE Reason [...] 0.04 12/04/2023 PLT 207 (more content not included)...[facility] 02-20-2025 Note- In 2012Un[facility]04-13-2025 Note- Patient had angiogram on which [...] good urine output, would continue current diuretic doseUnMemorial Health System [facility] Hospital04-13-2025 Note-Anticoagulation has been on hold, continue aspirin, repeat hemoglobin daily. No apparent source of bleeding. Patient states that she had her screening colonoscopiesUnMemorial Health System [facility]04-13-2025 Note-Resume home insulin, adjust based on blood sugarsUnMemorial Health System [facility] 02-20-2025 Note- On Eliquis 5mg BID at home, rate controlled on carvedilol 25mg BID. Rate controlled here. Anticoagulation has been on hold given low hemoglobin. Patient will need to be evaluated for left atrial appendage occlusion procedure outpatientUnMemorial Health System [facility]04-13-2025 NoteAs aboveUnMemorial Health System [facility]04-13-2025 Note- Resume home medicationsUnMemorial Health System [facility]04-13-2025 NoteHospital Medicine Daily Progress Note - 02/20/2025 12:03 PM; Room: [address] [place], [place] [address]- Admission: 02/18/2025 12:20 PM; Length of stay: 2 days THE HOSPITALIST TEAM PREFERS TO USE [employer] CHAT FOR NON-URGENT COMMUNICATION 7AM-7PM. IF I DO NOT RESPOND WITHIN 20 MINUTES OR URGENT MATTERS, PLEASE CALL THROUGH THE HEATING AND BLENDING SUPERVISOR. FROM 7PM-7AM, PLEASE PAGE [phone](COVR). Code Status: Full Code Barriers to Discharge: [...] diuretic dose NSTEMI (non-ST elevated myocardial infarction) ([facility]) As above Coronary artery disease involving moapa heart As above S/P CABG x 4 - In 2012 Essential hypertension - Resume home medications PAF (paroxysmal atrial fibrillation) ([facility]) - On Eliquis 5mg BID at home, rate controlled on carvedilol 25mg BID. Rate controlled here. Anticoagulation has been on hold given low hemoglobin. Patient will need to be evaluated for left atrial appendage occlusion procedure outpatient Type 2 diabetes mellitus with hyperglycemia ([facility]) -Resume home insulin, adjust based on blood [...] Academy of Nutrition and Dietetics and the [place] Society of Enteral and Parenteral Nutrition, meets [...] mmol/L 4.4 4.5 CHLORID (more content not included)...[facility] 02-20-2025 NoteUTP CARDIOLOGY INPATIENT PROGRESS NOTE Reason [...] CV Testing: Encounter Date: (more content not included)...[facility]04-12-2025 Note- On Eliquis 5mg BID at home, rate controlled on carvedilol 25mg BID. Rate controlled here. Anticoagulation has been on hold given low hemoglobin. Patient will need to be evaluated for left atrial appendage occlusion procedure outpatientUnMemorial Health System [facility]04-12-2025 NoteAs aboveUnMemorial Health System [facility]04-12-2025 Note-Anticoagulation has been on hold, continue aspirin, repeat hemoglobin daily. No apparent source of bleeding. Patient states that she had her screening colonoscopiesUnMemorial Health System [facility]04-12-2025 Note- Resume home medicationsUnMemorial Health System [facility]04-12-2025 Note-Patient had angiogram yesterday which showed [...] needed. At home she does not use oxygenUnMemorial Health System [facility] 02-19-2025 Note-Resume home insulin, adjust based on blood sugarsUnMemorial Health System [facility]04-12-2025 Note- In 2012Un[facility] 02-19-2025 NoteHospital Medicine Daily Progress Note - 02/19/2025 11:53 AM; Room: [address] [place] [address] Admission: 02/18/2025 12:20 PM; Length of stay: 1 days THE HOSPITALIST TEAM PREFERS TO USE [employer] FOR NON-URGENT COMMUNICATION 7AM-7PM. IF I DO NOT RESPOND WITHIN 20 MINUTES OR URGENT MATTERS, PLEASE CALL THROUGH THE HEATING AND BLENDING SUPERVISOR. FROM 7PM-7AM, PLEASE PAGE [phone](COVR). Code Status: Full Code Barriers to Discharge: [...] use oxygen NSTEMI (non-ST elevated myocardial infarction) ([facility]) As above Coronary artery disease involving moapa heart As above S/P CABG x 4 - In 2012 Essential hypertension - Resume home medications PAF (paroxysmal atrial fibrillation) ([facility]) - On Eliquis 5mg BID at home, rate controlled on carvedilol 25mg BID. Rate controlled here. Anticoagulation has been on hold given low hemoglobin. Patient will need to be evaluated for left atrial appendage occlusion procedure outpatient Type 2 diabetes mellitus with hyperglycemia ([facility]) -Resume home insulin, adjust based on blood [...] Academy of Nutrition and Dietetics and the [place] Society of Enteral and Parenteral Nutrition, meets [...] 4.4 4.5 CHLORIDE mmol (more content not included)...[facility] 02-19-2025 NoteUTP CARDIOLOGY INPATIENT PROGRESS NOTE Reason [...] 02/19/2025 CALCIUM 8.3 (L (more content not included)...[facility] 02-18-2025 NoteCardiology Coronary angiogram shows stable CAD Labs show Hb 7.3 This is a drop compared to baseline In light of these findings, the elevated troponin is a Type II LA secondary to anemia Plan: Please transfuse 2 U PRBC Aim for Hb > 9 g/dL given CAD with elevated troponin Stop eliquis Stop plavix Maintain aspirin 81 mg daily for CAD Outpatient Watchman evaluationUnMemorial Health System [facility]04-11-2025 Note Patient: Diann Patel Procedure Information Date/Time: 02/18/251826 Procedure: Coronary angiography Location: [facility] / [facility] (Cath) Providers: Valente Chacon [...] who consented to blood products. Additional Equipment RequestsRiverview Health Institute04-11-2025 Note Case was discussed with the RAMY [...] patient currently on heparin drip Sam Arita MDRiverview Health Institute04-11-2025 Note- follow up anemia workup, possibly iatrogenic from recurrent blood draws over past 12 hours, but she is on eliquis/plavix at home. Follow up stool guaiac, b12, ferritin, folate, and tibc. - Will transfuse 1U in setting of ACS to maintain hgb >8. Lasix 40mg after unit. [facility]04-11-2025 Note- On Eliquis 5mg BID at home, rate controlled on carvedilol 25mg BID. Rate controlled hereUnMemorial Health System [facility]04-11-2025 Note- acutely decompensated w elevated trop. Hx of diastolic HF. Concern that this decompensation is 2/2 LA. - Sodium restricted diet - Lasix 40mg IV BID x2 doses, reassess in AM.[facility] 02-18-2025 Note- On regular insulin 10U w meals at home. Start sliding scale here. - On 80U nightly of lantus. Reduce to 20U tonight. Will be NPOUnMemorial Health System [facility]etta [facility] Hospital04-11-2025 Note- In 2012Un[facility] 02-18-2025 Note- Resume home medicationsUnMemorial Health System [facility] 02-18-2025 Note- Heparin gtt - Trend trops/EKGs - Cardiology following' - NPO at midnight for cath in AM - SL nitroglycerin prnUnMemorial Health System [facility]04-11-2025 Note- Has been compliant on plavix/statinUnMemorial Health System [facility] Hospital04-11-2025 NoteHospital Medicine History and Physical 02/18/2025 2:33 PM THE HOSPITALIST TEAM PREFERS TO USE [employer] CHAT FOR NON-URGENT COMMUNICATION 7AM-7PM. IF I DO NOT RESPOND WITHIN 20 MINUTES OR URGENT MATTERS, PLEASE CALL THROUGH THE HEATING AND BLENDING SUPERVISOR. FROM 7PM-7AM, PLEASE PAGE [phone](COVR). Chief Complaint No chief complaint on file. History of Present Illness Diann Patel is an 69 y.o. female w a PMH of CAD s/p CABG x4 in 2012, IDDM2, HTN, and diastolic HF who came from [place] ED with NSTEMI and concern for new onset HFrEF. Patient reports all was well yesterday but that she woke up this morning acutely short of breath. She denies associated CP, N/V, diaphoresis, pain to the jaw or shoulder, palpitations, or dyspepsia. At [place] she was requiring Bipap to maintain O2 [...] Plan New onset of congestive heart failure ([facility]/HCC) - acutely decompensated w elevated trop. Hx of diastolic HF. Concern that this decompensation is 2/2 LA. - Sodium restricted diet - Lasix 40mg IV BID x2 doses, reassess in AM. NSTEMI (non-ST elevated myocardial infarction) (CMS/HCC) - Heparin gtt - Trend trops/EKGs - Cardiology following' - NPO at midnight for cath in AM - SL nitroglycerin prn Coronary artery disease involving moapa heart - Has been compliant on plavix/statin S/P CABG x 4 - In 2012 Essential hypertension - Resume home medications PAF (paroxysmal atrial fibrillation) ([facility]) - On Eliquis 5mg BID at home, rate controlled on carvedilol 25mg BID. Rate controlled here Type 2 diabetes mellitus with hyperglycemia ([facility]) - On regular insulin 10U w meals [...] VTE Prophylaxis: IV heparin (more content not included)...[facility]04-09-2025 [place]charge summaryMartin [place] [id number] Discharge Summary Signed Patient: Diann Patel MR#: [id number] : 1955 Acct:[id number] Age/Sex: 69 / F Adm Date: 5 Loc: 3T Room: 8O0203-[address]: Edvin Casper MD Copies to: [...] 7 to 10 days. She was recommended [id number]-gujmkew treatments for her abdominal discomfort, as this [...] Continuity of Care Document Health Concerns: A [facility] screening has identified you as FRAIL or [...] Strong:Four Ways to Beat the Frailty Risk [email or web address]-[email or web address]- psgk-uy-nrvr-zdw-erjdafa-neoz Exam Physical Exam Vital Signs: Temp Pulse [...] % (Auto) 57.2, Lymph % (Auto) 25.6, [place] % (Auto) 12.6, Eos % (Auto) 3.3, Baso % (Auto) 1.3, Nucleat RBC Rel Count 0.0, Neut # (Auto) 5.0, Lymph # (Auto) 2.3, [place] # (Auto) 1.1 H, Eos # (Auto) 0.3, Baso # (Auto) 0.1, PHA CreatinineClear 36.01, Sodium 137, Potassium 4.9, Chloride 105, Carbon Dioxide 26.2, Anion Gap 10.7, BUN 48 H, Creatinine 1.44 H, Est GFR (CKD-EPI) 39.128, Glucose 142 H D, Estimat Average Glucose 194, Hemoglobin A1c 8.4 H, Calcium 8.3 L, Iron 45 L, TIBC 433, Iron Saturation 10.4 L, Transferrin 309, Gwzekkyg12.5, Total Bilirubin 0.3, AST 17, ALT 15, [...] Appearance Clear, Urine pH 5.0, Ur Specific [place] 1.044H, Urine Protein Negative, Urine Glucose (UA) [...] Neut % (Auto) 65.2, Lymph % (Auto)21.3, [place] % (Auto) 9.1, Eos % (Auto) 3.4, Baso % (Auto) 1.0, Nucleat RBC Rel Count 0.0, Neut # (Auto) 6.9, Lymph # (Auto) 2.3, [place] # (Auto) 1.0 H, Eos # (Auto) 0.4, Baso # (Auto) 0.1, Monocyte DistWidth 18.23, PHA Creatinine Clear 36.12, Sodium 132 L, Potassium 5.2 H, Chloride 98, Carbon Xudusit17.8, Anion Gap 13.4, BUN 42 H, Creatinine [...] MD 5 1243 Signed By: 02/16/25 1303 [facility]04-09-2025 Radiology Diagnostic study note [facility] [place] [address] [place] [address] Ultrasound Report Signed Patient: Diann Patel MR#: [id number] : 1955 Acct:[id number] Age/Sex: 69 / F ADM Date: 5 Loc: 3T Room: [address] [place] [address] Type: ADM INOo Attending Dr: Edvin Casper [...] Erwin Jr., D.O.02/16/2025 8:26 AM Dictation Location: [place] [address] Tech: Ana Maria Valdovinos Transcribed By: JOSUE 02/16/25825 Dictated By: Julio Cesar Erwin Jr, DO 02/16/25824 Signed By: 02/16/25825 [facility]04-09-2025 History and physical note Author Edvin Casper [facility] Date/TimeApril 2024 10:[place] [address] Hospitalist H&P Signed Patient: Diann Patel MR#: [id number] : 1955 Acct:[id number] Age/Sex: 69 / F Adm Date: 5 Loc: Room: [address] [place] [address] Type: ADM INOo Attending Dr: Edvin Casper [...] her medical care. She presented to the [facility] urgent care, but she was too incapacitated [...] thus they decided to call squad from [facility] urgent care parking lot. She [...] that which is noted above in the [facility] Medical History (Updated 02/15/25 @ [...] clean-up per request of Phys. EHR [facility] Surgical [facility] H/O: hysterectomy Hx of aortic valve replacement 09/2022 Problem List clean-up per request of Phys. EHR [facility] H/O heart artery stent 2022 Problem List clean-up per request of Phys. EHR [facility] History of appendectomy Problem List clean-up per request of Phys. EHR [facility] Hx of hernia repair Problem List clean-up per request of Phys. EHR [facility] History of heart bypass surgery 2012 Problem List clean-up per request of Phys. EHR [facility] History of tonsillectomy Problem List clean-up [...] % (Auto) 21.3 % (.) 02/15/25 14:30 [place] % (Auto) 9.1 % (.) 02/15/25 14:30 Eos % (Auto) 3.4 % (.) 02/15/25 14:30 Baso % (Auto) 1.0 % (.) 02/15/25 14:30 Nucleat RBC Rel Count 0.0 /100 WBC (0-0.5) 02/15/25 14:30 Neut # (Auto) 6.9 x10E3/uL (1.8-7.7) 02/15/25 14:30 Lymph # (Auto) 2.3 x10E3/uL (1.00-4.8) 02/15/25 14:30 [place] # (Auto) 1.0 x10E3/uL (0.0-0.8) H 02/15/25 [...] <Electronically signed by Edvin Casper MD> 02/15/25 [facility] Work Phone: 1([phone]) 648-188204-08-2025 [place] [address] Hospitalist H&P Signed Patient: Diann Patel MR#: [id number] : 1955 Acct:[id number] Age/Sex: 69 / F Adm Date: 5 Loc: Room: [address] [place] [address] Type: ADM INOo Attending Dr: Edvin Casper [...] her medical care. She presented to the [facility] urgent care, but she was too incapacitated [...] thus they decided to call squad from [facility] urgent care parking lot. She [...] that which is noted above in the [facility] Medical History (Updated 02/15/25 @ [...] % (Auto) 21.3 % (.) 02/15/25 14:30 [place] % (Auto) 9.1 % (.) 02/15/25 14:30 Eos % (Auto) 3.4 % (.) 02/15/25 14:30 Baso % (Auto) 1.0 % (.) 02/15/25 14:30 Nucleat RBC Rel Count 0.0 /100 WBC (0-0.5) 02/15/25 14:30 Neut # (Auto) 6.9 x10E3/uL (1.8-7.7) 02/15/25 14:30 Lymph # (Auto) 2.3 x10E3/uL (1.00-4.8) 02/15/25 14:30 [place] # (Auto) 1.0 x10E3/uL (0.0-0.8) H 02/15/25 [...] Edvin Casper MD 2110 Signed By: 02/15/252222 [facility]-08-2025 Evaluation note* Diagnosis Onset Date Resolution Status Admit Date Abdominal pain acuteApril 2024 6:24pmWeaknessacuteApril 2024 6:24pm [facility] Work Phone: [phone]) [phone] Radiology Diagnostic [facility] [address] CT Scan Report Signed Patient: Diann Patel MR#: [id number] : 1955 Acct:[id number] Age/Sex: 69 / F ADM Date: 5 Loc: 3T Room: [address] [place] [address] Type: ADM INOo Attending Dr: Edvin Casper MD Copies to: MD Ross Higgins MANAGER HEMATOLOGY~ Ordering Provider: Ross Martinez APRN Date of [...] Manjula Flannery M.D.02/15/2025 4:03 PM Dictation Location: [place] [address] Transcribed By: JOSUE 02/15/25 1601 Dictated By: Manjula Flannery MD 02/15/25 1554 Signed By: 02/15/25 160 [facility] Work Phone: [phone]) [phone] Discharge summary Author Edvin Casper [facility] Date/TimeApril 2024 1:03pmMartin Ville [id number] Discharge Summary Signed Patient: Diann Patel MR#: [id number] : 1955 Acct:[id number] Age/Sex: 69 / F Adm Date: 5 Loc: Room: [address] [place] [address]: Edvin Casper MD Copies to: [...] 7 to 10 days. She was recommended swnv-ccu-uhgzwii treatments for her abdominal discomfort, as this [...] Continuity of Care Document Health Concerns: A [facility] screening has identified you as FRAIL or [...] Strong:Four Ways to Beat the Frailty Risk [email or web address]-tn-udlk-yzh-ydkreiz-[email or web address] Exam Physical Exam Vital Signs: Temp Pulse [...] % (Auto) 57.2, Lymph % (Auto) 25.6, [place] % (Auto) 12.6, Eos % (Auto) 3.3, Baso % (Auto) 1.3, Nucleat RBC Rel Count 0.0, Neut # (Auto) 5.0, Lymph # (Auto) 2.3, [place] # (Auto) 1.1 H, Eos # (Auto) 0.3, Baso # (Auto) 0.1, PHA CreatinineClear 36.01, Sodium 137, Potassium 4.9, Chloride 105, Carbon Dioxide 26.2, Anion Gap 10.7, BUN 48 H, Creatinine 1.44 H, Est GFR (CKD-EPI) 39.128, Glucose 142 H D, Estimat Average Glucose 194, Hemoglobin A1c 8.4 H, Calcium 8.3 L, Iron 45 L, TIBC 433, Iron Saturation 10.4 L, Transferrin 309, Wcgccbia29.5, Total Bilirubin 0.3, AST 17, ALT 15, [...] Appearance Clear, Urine pH 5.0, Ur Specific [place] 1.044H, Urine Protein Negative, Urine Glucose (UA) [...] Neut % (Auto) 65.2, Lymph % (Auto)21.3, [place] % (Auto) 9.1, Eos % (Auto) 3.4, Baso % (Auto) 1.0, Nucleat RBC Rel Count 0.0, Neut # (Auto) 6.9, Lymph # (Auto) 2.3, [place] # (Auto) 1.0 H, Eos # (Auto) 0.4, Baso # (Auto) 0.1, Monocyte DistWidth 18.23, PHA Creatinine Clear 36.12, Sodium 132 L, Potassium 5.2 H, Chloride 98, Carbon Eurzxxw33.8, Anion Gap 13.4, BUN 42 H, Creatinine [...] signed by Edvin Casper MD> 02/16/25 [address] [facility] Work Phone: [phone]) 911-913704-08-2025 NoteRight Eye Quality was good. Scan locations included subfoveal. Progression has been stable. Findings include normal observations. Left Eye Quality was good. Scan locations included subfoveal. Progression has been stable. Findings include normal observations. Notes Good scan with normal appearanceSalem Memorial District [id number] History of Present illness Narrative* Teena Delcid, [...] (OD). Stable. - sees ANGEL Hernandez in [place] for antiVEGF both eyes (OU). - Diabetes [...] artificial tears were recommended. documented in this encounterSalem Memorial District [id number] Telephone encounter Note* Telephone Encounter - FAITH Holcomb - 02/03/2025 11:09 AM EDT Dexcom sensor sent. NOMS [id number] Miscellaneous Notes* Telephone Encounter - FAITH Holcomb - 02/03/2025 11:09 AM EDT Dexcom sensor sent. documented in this [facility]02-26-2025 Evaluation note* Type Assessment Date assessment Type 2 diabetes emelia itus 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 macular edema, bilateral impression Type 2 diabetes emelia itus 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 macular edema, bilateral: E11.3593. Bilateral. Condition: established, stable OD, active/worsening OS [facility] Work Phone: [phone] History of Present illness Narrative* Encounter Date [...] bandage. 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 Patient denies any pain [...] described as blurring. Patient denies eye pain. [facility] Work Phone: [phone] Instructions* Date Instruction Additional Infor dimple Impression/Plan [...] of right eye [facility] Work Phone: [phone] History of Present illness Narrative* Johnna Cedeño, [...] chasity is being taken. She sees a revenue stamp clerk.Eye exam is current (had cataract surgery). Current [...] (ten) days 3 each 11 Continuous Glucose Administrator Social Welfare (Dexcom G7 Administrator Social Welfare) device 1 Device yearly 1 each 0 [...] Other Past Medical History: Diagnosis Date A-fib ([facility]) 2022 with RVR Anxiety Aortic stenosis 06/2022 Carotid artery disease ([facility]) Cataract CHF (congestive heart failure) [place] 06/2022 Colon polyp 2016 Diverticulitis DM (diabetes mellitus) ([facility]) HLD (hyperlipidemia) ([facility] HTN (hypertension) ([facility]) LA (myocardial infarction) ([facility] NSTEMI, initial episode of care ([facility] 2022 Retinal hemorrhage Past Surgical History: Procedure [...] orders for this visit: Paroxysmal atrial fibrillation ([facility]) - dabigatran etexilate (Pradaxa) 150 MG capsule; [...] patient in getting this medication. 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 [...] No follow-ups on file. documented in this encounterSalem Memorial District [id number] History of Present illness Narrative* Alexis Gilmore, [...] History: Past Medical History: Diagnosis Date A-fib ([facility]) 2022 with RVR Anxiety Aortic stenosis 06/2022 Carotid artery disease ([facility]) Cataract CHF (congestive heart failure) ([facility] 06/2022 Colon polyp 2016 Diverticulitis DM (diabetes mellitus) ([facility]) HLD (hyperlipidemia) ([facility] HTN (hypertension) ([facility] LA (myocardial infarction) ([facility] NSTEMI, initial episode of care ([facility] 2022 Retinal hemorrhage Medications: Current Outpatient Medications: [...] Disp: 3 each, Rfl: 11 Continuous Glucose Administrator Social Welfare (Dexcom G7 Administrator Social Welfare) device, 1 Device yearly, Disp: 1 each, [...] Resource Strain: Low Risk (06/22/2024) Received from [facility] Overall Financial Resource Strain (CARDIA) Difficulty of Paying Living Expenses: Not hard at all Food Insecurity: No Food Insecurity (12/03/2023) Received from [facility], [facility], [facility] Hunger Vital Sign Within the past 12 months, you worried that your food would run out before you got the money to buymore.: Never true Within the past 12 months, the food you bought just didn't last and you didn't have money to get more.: Never true Transportation Needs: No Transportation Needs (06/22/2024) Received from [facility] PRAPARE - Transportation Lack of Transportation (Medical): No Lack of Transportation (Non-Medical): No Physical Activity: Inactive (06/22/2024) Received from [facility] Exercise Vital Sign Days of Exercise per Week: 0 days Minutes of Exercise per Session: 0 min Stress: Stress Concern Present (12/03/2023) Received from [facility], [facility] [place] of Occupational Health - Occupational Stress Questionnaire Feeling of Stress : To some extent Social Connections: Moderately Isolated (12/03/2023) Received from [facility], [facility] Social Connection and Isolation Panel [NHANES] Frequency of Communication with Friends and Family: More than three times a week Frequency of Social Gatherings with Friends and Family: More than three times a week Attends Restoration Services: Never Active Member of Clubs or Organizations: No Attends Club or Organization Meetings: Never Marital Status: Intimate Partner Violence: Not At Risk (12/03/2023) Received from [facility], [facility] Humiliation, Afraid, Rape, and Kick questionnaire Fear of Current or Ex-Partner: No Emotionally Abused: No Physically Abused: No Sexually Abused: No Housing Stability: Low Risk (06/22/2024) Received from [facility] Housing Stability Vital Sign Unable to [...] positive edema to left foot. NEURO: 5.07 Louisa Truong monofilament test diminished to digits and forefoot bilaterally 125Hz tuning fork diminished to 1st MPJ bilaterally ORTHO: Positive pain on palpation to toenails of the left 1,2,3,4,5 toes and right 1,2,3,4,5 toes Flexion deformities digits 2 through 5 bilateral Positive pain on palpation of right retrocalcaneal bursa and Achilles with negative palpable [place] ASSESSMENT 1. Heel spur, right 2. Achilles [...] Patient may continue with conservative treatments including eiah-eoy-kdwgxwf anti- inflammatories and other treatments suggested today. Patient may want to be s cheduled for surgical intervention in the near future. Discussed possible Tenex procedure with right Achilles surgery in the future and possible physical therapy and discussed physical therapy needs detail and will reassess in 2 weeks Alexis Gilmore DPM documented in this encounterSalem Memorial District [id number] NoteUT Cardiology - [facility] Subjective Diann Patel is a 69 y.o. year old female patient being seen for 4 mo follow up CAD, PAF, PAD, and aortic valve stenosis s/p TAVR. Had labs a few days ago. Denies chest pain, SOB, palpitations, and bleeding on Eliquis. Patient Active Problem List Diagnosis Nonrheumatic aortic valve stenosis Coronary artery disease involving moapa coronary artery of moapa heart with angina pectoris (CMS/HCC) PAF (paroxysmal [...] angioplasty. She was admitted [facility]/08/2024 to the [facility] with ?viral infection, weakness, low blood [...] on the left side (more content not included)...[facility]01-30-2025 History of Present illness Narrative* Alexis Gilmore, [...] History: Past Medical History: Diagnosis Date A-fib ([facility]) 2022 with RVR Anxiety Aortic stenosis 06/2022 Carotid artery disease [place] Cataract CHF (congestive heart failure) ([facility] 06/2022 Colon polyp 2016 Diverticulitis DM (diabetes mellitus) ([facility] HLD (hyperlipidemia) ([facility] HTN (hypertension) ([facility] LA (myocardial infarction) ([facility] NSTEMI, initial episode of care ([facility] 2022 Retinal hemorrhage Medications: Current Outpatient Medications: [...] Disp: 3 each, Rfl: 11 Continuous Glucose Administrator Social Welfare (Dexcom G7 Administrator Social Welfare) device, 1 Device yearly, Disp: 1 each, [...] Resource Strain: Low Risk (06/22/2024) Received from [facility] Overall Financial Resource Strain (CARDIA) Difficulty of Paying Living Expenses: Not hard at all Food Insecurity: No Food Insecurity (12/03/2023) Received from [facility], [facility], [facility] Hunger Vital Sign Within the past 12 months, you worried that your food would run out before you got the money to buymore.: Never true Within the past 12 months, the food you bought just didn't last and you didn't have money to get more.: Never true Transportation Needs: No Transportation Needs (06/22/2024) Received from [facility] PRAPARE - Transportation Lack of Transportation (Medical): No Lack of Transportation (Non-Medical): No Physical Activity: Inactive (06/22/2024) Received from [facility] Exercise Vital Sign Days of Exercise per Week: 0 days Minutes of Exercise per Session: 0 min Stress: Stress Concern Present (12/03/2023) Received from [facility], [facility] [place] of Occupational Health - Occupational Stress Questionnaire Feeling of Stress : To some extent Social Connections: Moderately Isolated (12/03/2023) Received from [facility], [facility] Social Connection and Isolation Panel [NHANES] Frequency of Communication with Friends and Family: More than three times a week Frequency of Social Gatherings with Friends and Family: More than three times a week Attends Restoration Services: Never Active Member of Clubs or Organizations: No Attends Club or Organization Meetings: Never Marital Status: Intimate Partner Violence: Not At Risk (12/03/2023) Received from [facility], [facility] Humiliation, Afraid, Rape, and Kick questionnaire Fear of Current or Ex-Partner: No Emotionally Abused: No Physically Abused: No Sexually Abused: No Housing Stability: Low Risk (06/22/2024) Received from [facility] Housing Stability Vital Sign Unable to [...] positive edema to left foot. NEURO: 5.07 Louisa Truong monofilament test diminished to digits and forefoot bilaterally 125Hz tuning fork diminished to 1st MPJ bilaterally ORTHO: Positive pain on palpation to toenails of the left 1,2,3,4,5 toes and right 1,2,3,4,5 toes Flexion deformities digits 2 through 5 bilateral Positive pain on palpation of right retrocalcaneal bursa and Achilles with negative palpable [place] DIAGNOSTIC US REPORT: Verbal order for ultrasound [...] condition with diabetic polyneuropathy, unspecified whether intermediate project manager insulin use ([facility]) 3. Pain due to onychomycosis of toenails of both feet 4. Onychomycosis 5. PVD (peripheral vascular disease) ([facility]) 6. Achilles tendinitis, right leg 7. Contracture [...] consented. Alexis Gilmore DPM documented in this [facility]12-12-2024 Evaluation note* Type Assessment Date assessment [...] ation), bilateral: H26.493 [facility] Work Phone: 1(659) [phone] History of Present illness Narrative* Teena Delcid DO - 10/15/2024 10:15 AM EST Images from the original note were not included. Assessment/Plan Diagnoses and all orders for this visit: Pseudophakia - s/p CE OS (1mth): Patient should be close to off all post-op meds. Pt. received final refraction for this eye today. documented in this [facility]11-21-2024 History of Present illness Narrative* FAITH [...] (ten) days 3 each 11 Continuous Glucose Administrator Social Welfare (Dexcom G7 Administrator Social Welfare) device 1 Device yearly 1 each 0 [...] Other Past Medical History: Diagnosis Date A-fib [place] 2022 with RVR Anxiety Aortic stenosis 06/2022 Carotid artery disease ([facility] Cataract CHF (congestive heart failure) ([facility]) 06/2022 Colon polyp 2016 Diverticulitis DM (diabetes mellitus) ([facility] HLD (hyperlipidemia) ([facility] HTN (hypertension) ([facility] LA (myocardial infarction) ([facility] NSTEMI, initial episode of care ([facility]) 2022 Retinal hemorrhage Past Surgical History: Procedure [...] vaccination - Influenza, high-dose seasonal, quadrivalent, PF (NQS707) (Fluzone High Dose [place] 0.7mL dose) Afebrile today, and all recent symptoms resolved or improving. Provided pt with Flu shot today. Shetolerated this well. Hypotension, unspecified hypotension type Encouraged pt to increase her water intake. Reach out to Cardiology if bottom number of BP runs low Follow up in about 3 months (around 12/31/2024) for Diabetes. documented in this encounterSalem Memorial District [id number] History of Present illness Narrative* Alexis Gilmore, [...] states she had improvement from seeing this [facility] doctors with intervention and has follow up in the near future Patient was seen in [place] for vascular intervention in the past with hx of DM2 and PVD Patient states continued pain to the region and was to follow up with vascular surgeon at the [facility] and states that she did [...] History: Past Medical History: Diagnosis Date A-fib ([facility] 2022 with RVR Anxiety Aortic stenosis 06/2022 Carotid artery disease ([facility]) Cataract CHF (congestive heart failure) ([facility]) 06/2022 Colon polyp 2016 Diverticulitis DM (diabetes mellitus) ([facility] HLD (hyperlipidemia) ([facility]) HTN (hypertension) ([facility] LA (myocardial infarction) ([facility] NSTEMI, initial episode of care ([facility]) 2022 Retinal hemorrhage Medications: Current Outpatient Medications: [...] Disp: 3 each, Rfl: 11 Continuous Glucose Administrator Social Welfare (Dexcom G7 Administrator Social Welfare) device, 1 Device yearly, Disp: 1 each, [...] Resource Strain: Low Risk (06/22/2024) Received from [facility] Overall Financial Resource Strain (CARDIA) Difficulty of Paying Living Expenses: Not hard at all Food Insecurity: No Food Insecurity (12/03/2023) Re[facility] from [facility], [facility] Hunger Vital Sign Within the past 12 months, you worried that your food would run out before you got the money to buymore.: Never true Within the past 12 months, the food you bought just didn't last and you didn't have money to get more.: Never true Transportation Needs: No Transportation Needs (06/22/2024) Received from [facility] PRAPARE - Transportation Lack of Transportation (Medical): No Lack of Transportation (Non-Medical): No Physical Activity: Inactive (06/22/2024) Received from [facility] Exercise Vital Sign Days of Exercise per Week: 0 days Minutes of Exercise per Session: 0 min Stress: Stress Concern Present (12/03/2023) Received from [facility], [facility] [place] of Occupational Health - Occupational Stress Questionnaire Feeling of Stress : To some extent Social Connections: Moderately Isolated (12/03/2023) Received from [facility], [facility] Social Connection and Isolation Panel [NHANES] Frequency of Communication with Friends and Family: More than three times a week Frequency of Social Gatherings with Friends and Family: More than three times a week Attends Restoration Services: Never Active Member of Clubs or Organizations: No Attends Club or Organization Meetings: Never Marital Status: Intimate Partner Violence: Not At Risk (12/03/2023) Received from [facility], [facility] Humiliation, Afraid, Rape, and Kick questionnaire Fear of Current or Ex-Partner: No Emotionally Abused: No Physically Abused: No Sexually Abused: No Housing Stability: Low Risk (06/22/2024) Received from [facility] Housing Stability Vital Sign Unable to [...] positive edema to left foot. NEURO: 5.07 Louisa Truong monofilament test diminished to digits and forefoot bilaterally 125Hz tuning fork diminished to 1st MPJ bilaterally ORTHO: Positive pain on palpation nails 1 through 10 Flexion deformities digits 2 through 5 bilateral ASSESSMENT 1. Dry gangrene ([facility]) 2. PVD (peripheral vascular disease) ([facility]) 3. Diabetes mellitus due to underlying condition with diabetic polyneuropathy, unspecified whether correction insulin use ([facility]) 4. Pain due to onychomycosis of toenails [...] gear. Alexis Gilmore DPM documented in this encounterSalem Memorial District [id number] History of Present illness Narrative* Johnna Cedeño, [...] (ten) days 3 each 11 Continuous Glucose Administrator Social Welfare (Dexcom G7 Administrator Social Welfare) device 1 Device yearly 1 each 0 [...] Other Past Medical History: Diagnosis Date A-fib [place] 2022 with RVR Anxiety Aortic stenosis 06/2022 Carotid artery disease [place] Cataract CHF (congestive heart failure) ([facility] 06/2022 Colon polyp 2016 Diverticulitis DM (diabetes mellitus) ([facility] HLD (hyperlipidemia) [place] HTN (hypertension) [place] LA (myocardial infarction) ([facility] NSTEMI, initial episode of care ([facility] 2022 Retinal hemorrhage Past Surgical History: Procedure [...] orders for this visit: Acute asthmatic bronchitis ([facility]) - levoFLOXacin (Levaquin) 500 MG tablet; Take [...] hyperglycemia, with long-term current use of insulin ([facility]) - POCT Glycated hemoglobin, total - insulin [...] No follow-ups on file. documented in this [facility]10-29-2024 History of Present illness Narrative* Teena [...] vision, questions or concerns. documented in this [facility]10-22-2024 History of Present illness Narrative* Teena [...] different lens options were explained including the sxl-gn-fokgzp fees for any upgrades. Intraocular lens (IOL) [...] Extremities: no pitting edema. documented in this encounterSalem Memorial District HospitalBludpchqoo63-40-1077 NotePatient here for 3 mo follow up aortic valve stenosis s/p TAVR, CAD, PAF, and PAD. She underwent vascular surgery at in Jun 2024. No labs since then. Denies chest pain, SOB, palpitations, and bleeding on Eliquis. Review of Systems Cardiovascular: Positive for leg swelling (LLE, resolves by morning). Neurological: Positive for numbness. All other systems reviewed and are negative.[facility] 08-18-2024 NoteCardiovascular Medicine [facility] SUBJECTIVE Chief Complaint Patient presents with [...] aortic valve stenosis Coronary artery disease involving moapa coronary artery of moapa heart with angina pectoris (CMS/HCC) PAF (paroxysmal [...] 20 mEq by west (more content not included)...[facility]09-10-2024 History of Present illness Narrative* Micheal Nova, MANAGER HEMATOLOGY-CINDER PIT WORKER - 07/20/2024 3:30 PM EDT Images from the original note were not included. [facility] Note Referring Provider: Noe Conklin DO PCP: No primary care provider on file. Compounder Flavorings: Alexis Gilmore DPM CC: 1 month post [...] History: 12/04/23: LLE angiogram, jet stream atherectomy, CT TECH and stenting of SFA/pop (Dr. Padilla) for [...] 07/20/2024 Patient Name: DIANN PATEL Reading Physician: [id number] Nury Blackwell MD, RPVI Study Date: 07/20/2024 Ordering Physician: [id number] TERRI SOSA MRN/PID: [id number] Technologist: Chanda Martinez RVT Technologist 2: Date of /Age: 8 1955 / 69 years Gender: F Admission Status: Outpatient Location Performed: [facility] Diagnosis/ICD: Peripheral vascular disease, unspecified-I73.9 CPT Codes: 42926 Peripheral artery BRIDGER Only CONCLUSIONS: Right Lower [...] Left Brachial Pressure 175 mmHg 184 mmHg [id number] Nury Blackwell MD, RPVI Assessment/Plan Diann Patel [...] if needed ESTELLA Strong [facility] Work Phone: 1(181) 975-337409-10-2024 Instructions* Patient Instructions* ESTELLA Strong - 07/20/2024 3:30 PM EDT Thank you for coming to see us in the [facility] today. We have reviewed your vascular testing [...] concerns please give us a call at [phone] option 1 documented in this [facility] Work Phone: 1(519) 795-115309-03-2024 History of Present illness Narrative* Teena Delcid, [...] (ten) days 3 each 11 Continuous Glucose Administrator Social Welfare (Dexcom G7 Administrator Social Welfare) device 1 Device yearly 1 each 0 [...] (Other) Past Medical History: Diagnosis Date A-fib [place] 2022 with RVR Anxiety Aortic stenosis 06/2022 Carotid artery disease [place] Cataract CHF (congestive heart failure) ([facility] 06/2022 Colon polyp 2016 Diverticulitis DM (diabetes mellitus) [place] HLD (hyperlipidemia) [place] HTN (hypertension) [place] LA (myocardial infarction) [place] NSTEMI, initial episode of care ([facility] 2022 Retinal hemorrhage Allergies Allergen Reactions Penicillins [...] @ 1:09 PM Additional Tests Keratometry K1 Wheatley K2 Wheatley Right 43.75 180 44 90 Left 44.25 [...] retina superior Refraction Manifest Refraction Sphere Cylinder Wheatley Right +1.75 -0.75 098 Left Assessment/Plan Cataract mature, total senile - IOL Biometry - OU - Both Eyes (CPT 29335) - Visually Significant Cataract, OU: I discussed [...] different lens options were explained including the qfs-dt-vhrcvl fees for any upgrades. Intraocular lens (IOL) [...] improvement to the vision. documented in this encounterSalem Memorial District [id number] History of Present illness Narrative* Alexis Gilmore, [...] states she had improvement from seeing this [facility] doctors with intervention and has follow up in the near future Patient was seen in [place] for vascular intervention in the past with hx of DM2 and PVD Patient states continued pain to the region and was to follow up with vascular surgeon at the [facility] and states that she did [...] History: Past Medical History: Diagnosis Date A-fib ([facility]) 2022 with RVR Anxiety Aortic stenosis 06/2022 Carotid artery disease ([facility]) Cataract CHF (congestive heart failure) ([facility] 06/2022 Colon polyp 2016 Diverticulitis DM (diabetes mellitus) [place] HLD (hyperlipidemia) [place] HTN (hypertension) [place] LA (myocardial infarction) [place] NSTEMI, initial episode of care ([facility] 2022 Retinal hemorrhage Medications: Current Outpatient Medications: [...] Disp: 3 each, Rfl: 11 Continuous Glucose Administrator Social Welfare (Dexcom G7 Administrator Social Welfare) device, 1 Device yearly, Disp: 1 each, [...] Resource Strain: Low Risk (06/22/2024) [facility] Overall Financial Resource Strain (CARDIA) Difficulty of Paying Living Expenses: Not hard at all Food Insecurity: No Food Insecurity (12/03/2023) Received from [facility], [facility], [facility] Hunger Vital Sign Within the past 12 months, you worried that your food would run out before you got the money to buymore.: Never true Within the past 12 months, the food you bought just didn't last and you didn't have money to get more.: Never true Transportation Needs: No Transportation Needs (06/22/2024) [facility] PRAPARE - Transportation Lack of Transportation (Medical): No Lack of Transportation (Non-Medical): No Physical Activity: Inactive (06/22/2024) [facility] Exercise Vital Sign Days of Exercise per Week: 0 days Minutes of Exercise per Session: 0 min Stress: Stress Concern Present (12/03/2023) Received from [facility], [facility] [place] of Occupational [facility] - Occupational Stress Questionnaire Feeling of Stress : To some extent Social Connections: Moderately Isolated (12/03/2023) Received from [facility], [facility] Social Connection and Isolation Panel [NHANES] Frequency of Communication with Friends and Family: More than three times a week Frequency of Social Gatherings with Friends and Family: More than three times a week Attends Restoration Services: Never Active Member of Clubs or Organizations: No Attends Club or Organization Meetings: Never Marital Status: Intimate Partner Violence: Not At Risk (12/03/2023) Received from [facility], [facility] Humiliation, Afraid, Rape, and Kick questionnaire Fear of Current or Ex-Partner: No Emotionally Abused: No Physically Abused: No Sexually Abused: No Housing Stability: Low Risk (06/22/2024) [facility] Housing Stability Vital Sign Unable to [...] positive edema to left foot. NEURO: 5.07 Louisa Truong monofilament test diminished to digits and forefoot bilaterally 125Hz tuning fork diminished to 1st MPJ bilaterally ORTHO: Positive pain on palpation nails 1 through 10 Flexion deformities digits 2 through 5 bilateral ASSESSMENT 1. PVD (peripheral vascular disease) (CMS/HCC) 2. Diabetes mellitus due to underlying condition with diabetic polyneuropathy, unspecified whether intermediate project manager insulin use ([facility]) 3. Dry gangrene (CMS/HCC) 4. Onychomycosis 5. 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 Bilateral. Condition: established, stable OD, active/worsening OS [facility] Work Phone: 1(603) 721-454408-21-2024 History of Present illness Narrative* Encounter Date [...] bandage. 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 Patient denies any pain [...] described as blurring. Patient denies eye pain. [facility] Work Phone: [phone] Instructions* Date Instruction Additional Infor dimple Impression/Plan [...] Return in 3-4 week(s ) with Jose uLis Corcoran MD for follow up and Color [...] of right eye [facility] Work Phone: [phone]) [phone] Plan of care note* Care Plan - [...] Goal: Free from fall injury Outcome: Progressing [facility] Work Phone: [phone]) [phone] Miscellaneous Notes* Care Plan - Massiel Sesay [...] Attending: * Nely Curry - Primary Resident/Fellow/Other Color Card Maker: Surgeons and Role: * Braeden Colin MD - Fellow Indications: Pre-op Diagnosis * PAD (peripheral artery disease) ([facility]) [I73.9] Post-procedure diagnosis: Post-op Diagnosis * PAD (peripheral artery disease) ([facility]) [I73.9] Procedure(s): Lower Extremity Angiogram and Intervention 61503 - [facility] ANGIOGRAPHY EXTREMITY UNILATERAL RS&I Procedure Findings: -LLE severe claudication and CLI Haakon class V: Patient status post successful revascularization using directional nfprajezldz-VZG-WOZ to entire left SFA and popliteal with good results. Access of the Procedure: 6F right DUMPSTER OPERATOR, closed with Vascade and manual pressure. Complications: [...] alternatives discussed with patient. documented in this [facility] Work Phone: [phone]) 348-219408-12-2024 History of Present illness Narrative* Blu Mobley, PharmD - 06/21/2024 2:32 PM EDT Pharmacy Medication History Review Diann Patel is a 68 y.o. female admitted for PAD (peripheral artery disease) ([facility] Pharmacy reviewed the patient's kzofr-wo-svppkzpne medications and allergies for accuracy. Medications ADDED: acetaminophen Medications CHANGED: Albuterol as needed for shortness of breath/wheezing Basaglar KwikPen 100units/mL- 50 units at bedtime Ondansetron ODT as needed for nausea/vomiting Medications REMOVED: Spironolactone The list below reflects the updated CT TECH list. Comments regarding how patient may be [...] Below are additional concerns with the patient's CT TECH list. N/A Blu Mobley PharmD Transitions of Care Pharmacist [facility] Please reach out via Secure Chat for questions, or if no response call XODIS or Tutor TroveRec documented in this [facility] Work Phone: [phone]) [phone] Note* Post-Procedure Note - Nley Curry MD - 06/21/2024 2:05 PM EDT Physician Transition of Care Summary Invasive Cardiovascular Lab Procedure Date: 06/21/2024 Attending: * Nely Curry - Primary Resident/Fellow/Other Color Card Maker: Surgeons and Role: * Braeden Colin MD - Fellow Indications: Pre-op Diagnosis * PAD (peripheral artery disease) (CMS-HCC) [I73.9] Post-procedure diagnosis: Post-op Diagnosis * PAD (peripheral artery disease) ([facility]) [I73.9] Procedure(s): Lower Extremity Angiogram and Intervention 59591 - [facility] ANGIOGRAPHY EXTREMITY UNILATERAL RS&I Procedure Findings: -LLE severe claudication and CLI Anahi class V: Patient status post successful revascularization using directional gwlzihaigps-FLK-RKX to entire left SFA and popliteal with good results. Access of the Procedure: 6F right DUMPSTER OPERATOR, closed with Vascade and manual pressure. Complications: [...] by: Nely Curry MD, 06/21/2024 5:00 PM [facility] Work Phone: [phone]) [phone] Note* Pre-Sedation Documentation - Braeden Colin MD - 06/21/2024 1:58 PM EDT Sedation Plan ASA 3 Mallampati class: III. Risks, benefits, and alternatives discussed with patient. [facility] Work Phone: [phone]) [phone] History of Present illness Narrative* Margareth Escamilla DO - 06/15/2024 3:00 PM EDT Images from the original note were not included. [facility] Note Referring Provider: Noe Conklin DO PCP: No primary care provider on file. Compounder Flavorings: Alexis Gilmore DPM CC: PAD Subjective HPI: [...] History: 12/04/23: LLE angiogram, jet stream atherectomy, CT TECH and stenting of SFA/pop (Dr. Padilla) for [...] ondansetron ODT (Zofran-ODT) 4 mg disintegrating tablet Ion TorrentTouch Ultra Test strip USE TO TEST BLOOD [...] 0.52/0.43 Left 0/0 No imaging available from [facility] for review Plan: LLE angiogram with intervention on 06/21/[address] Curry Images from [facility] requested Continue aspirin, Plavix, Eliquis (Last dose of Eliquis PM of 06/18) Continue atorvastatin Percocet x10 tablets sent to patients pharmacy for pain control until procedure on 06/21/24 Patient seen and discussed with attending, Dr. Francine Escamilla DO documented in this [facility] Work Phone: [phone]) 298-417708-06-2024 Instructions* Patient Instructions* Margareth Leblanc MD - 06/15/2024 3:00 PM EDT Images from the original note were not included. It was a pleasure taking care of you today and appreciate your seeing us at our [facility] [place] [facility]. Today's plan is as follows: Continue [...] blood flow to your left leg at [facility] ([id number] [facility]) with Dr. Escamilla The laborer plumbing staff will call you the day before the procedure for further instructions and time of the procedure. The phone number to reach them at is [phone] (M-F, 6:30 am -5 pm) You will [...] call the office with any questions at [phone], press option 1 If you need coordinating your appointments and testing you can do these at the front desk admin or by calling my office shortly after your visit. documented in this [facility] Work Phone: 1([phone]) 570-357902-01-2024 History of Present illness Narrative* Alexis Berry [...] left leg and patient was transferred to [facility] where she had it angioplasty procedure with increased blood flow noted by patient. She has a type 2 diabeticand presents today for follow up in office. Allergies: Allergies Allergen Reactions Penicillins Hives childhood-swelling Past Medical History: Past Medical History: Diagnosis Date A-fib [place] 2022 with RVR Anxiety Aortic stenosis 06/2022 Carotid artery disease ([facility]) CHF (congestive heart failure) ([facility] 06/2022 Colon polyp 2016 Diverticulitis DM (diabetes mellitus) ([facility]) HLD (hyperlipidemia) ([facility]) HTN (hypertension) ([facility]) LA (myocardial infarction) ([facility]) NSTEMI, initial episode of care ([facility] 2022 Medications: Current Outpatient Medications: amLODIPine (Norvasc) [...] positive edema to left foot NEURO: 5.07 Louisa Truong monofilament test diminished to digits and forefoot bilaterally 125Hz tuning fork diminished to 1st MPJ bilaterally ORTHO: Minimal pain on palpation to left foot ulcer BRIDGER PVR non readable findings to the left with non pulsatile flow and right of 0.53 DP ASSESSMENT 1. Diabetes mellitus due to underlying condition with diabetic polyneuropathy, unspecified whether correction insulin use ([facility]) 2. PVD (peripheral vascular disease) ([facility]) 3. Dry gangrene ([facility]) 4. Foot ulcer, left, with fat layer exposed ([facility]) PLAN Sharp debridement with 15 blade of subcutaneous ulceration to left foot with active bleeding noted and removal and excision of fibrotic and necrotic tissue to wound and DSD applied with neosporin. Ptto continue with Betadine daily Reviewed BRIDGER PVRs and patient is to follow up with [facility] for right foot in near future and continue with wound care until follow up in 1 week Alexis Gilmore DPM documented in this encounterSalem Memorial District HospitalLhpcntditq59-54-6486 Evaluation note* Encounter Date Diagnosis Assessment Notes [...] office sooner with any issues or concerns. [employer] Other 03-24-2023 NotePROCEDURE: XR WRIST LT MIN 3 V HISTORY: Pain after falling COMPARISON: None. FINDINGS: BONES:No fracture, acute abnormality, or significant arthropathy. SOFT TISSUES:Multiple skin jose within soft tissues lateral to the distal forearm. EFFUSION:None visible. OTHER: Negative. IMPRESSION: 1. No acute bone abnormality. 2. Multifocal mild degenerative joint disease. Electronically authenticated by: GERMAIN COY Date: 2023-01-31 13:10[facility]td[facility]u77-89-1715 Procedure [facility] 01-09-2023 Evaluation note* Encounter Date Diagnosis [...] clinical exam. I do not have the [place] studies yet. We will reach out to [...] was obtained all her questions were addressed. [facility] Other 08-25-2022 NoteMR#: [id number] I [facility] Pt. Name: Diann Patel Admitted: 2022 Discharged: [...] Amaya MD Date Trans: 07/03/2022 11:43 P/mmo [id number] cc: Champ Bell M.D. [address] [place] [id number] Evaluation note* Encounter Date Diagnosis Assessment [...] plan all of her questions were addressed. [facility] Other Consult note* Clinical Note Date No Information [facility] Work Phone: Discharge summary* Clinical Note Date No Information [facility] Work Phone: Evaluation noteNo assessment information available [facility] Work Phone: Evaluation note* Diagnosis Diabetes mellitus due to underlying condition with diabetic polyneuropathy, unspecified whether intermediate project manager insulin use ([facility])- Primary PVD (peripheral vascular disease) ([facility]) Unspecified peripheral vascular disease Dry gangrene ([facility]) Foot ulcer, left, with fat layer exposed ([facility]) documented in this encounter [facility]* Diagnosis Onset Date Resolution Status Peripheral artery disease acute [facility] Work Phone: Evaluation note* Diagnosis Pseudophakia- Primary Lens replaced by other means documented in this encounter [facility]* Diagnosis Pseudophakia- Primary Lens replaced by other means Cataract mature, total senile Total or mature senile cataract documented in this encounter [facility]* Diagnosis Pseudophakia- Primary Lens replaced by other means documented in this encounter [facility]* Diagnosis Pseudophakia- Primary Lens replaced by other means Diabetes mellitus due to underlying condition with diabetic polyneuropathy, unspecified whether intermediate project manager insulin use ([facility])- Primary Pain due to onychomycosis of toenails of both feet Dry gangrene ([facility]) PVD (peripheral vascular disease) ([facility]) Unspecified peripheral vascular disease documented in this encounter [facility]* Diagnosis Acute asthmatic bronchitis ([facility])- Primary Unspecified asthma, with exacerbation Type 2 diabetes mellitus with hyperglycemia, with long-term current use of insulin ([facility]) Polyneuropathy due to type 2 diabetes mellitus ([facility]) Acute cough Dry gangrene ([facility])- Primary PVD (peripheral vascular disease) ([facility]) Unspecified peripheral vascular disease Diabetes mellitus due to underlying condition with diabetic polyneuropathy, unspecified whether intermediate project manager insulin use ([facility]) Pain due to onychomycosis of toenails of both feet documented in this encounter [facility] note* Diagnosis Dry gangrene ([facility])- Primary PVD (peripheral vascular disease) ([facility]) Unspecified peripheral vascular disease Diabetes mellitus due to underlying condition with diabetic polyneuropathy, unspecified whether intermediate project manager insulin use ([facility]) Pain due to onychomycosis of toenails of both feet documented in this encounter [facility] Healthcare[facility] note* Diagnosis Acute asthmatic bronchitis ([facility])- Primary Unspecified asthma, with exacerbation Need for vaccination Need for prophylactic vaccination and inoculation against unspecified single disease Hypotension, unspecified hypotension type documented in this encounter [facility]* Diagnosis Pseudophakia- Primary Lens replaced by other means documented in this encounter [facility] HealthcareEvaluation note* Diagnosis PAD (peripheral artery disease) ([facility] Primary Unspecified peripheral vascular disease PAD (peripheral artery disease) ([facility]) Unspecified peripheral vascular disease S/P peripheral artery angioplasty Other postprocedural status Atherosclerosis of moapa arteries of extremities with intermittent claudication, left leg ([facility]) Atherosclerosis of moapa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 with ulceration of other part of foot (Multi) Acute pain PAD (peripheral artery disease) ([facility]) Unspecified peripheral vascular disease documented in this encounter [facility] Work Phone: Evaluation note* Diagnosis PAD (peripheral artery disease) ([facility])- Primary Unspecified peripheral vascular disease Anemia, unspecified type documented in this encounter [facility] Work Phone: Evaluation note* Diagnosis PAD (peripheral artery disease) ([facility]) Unspecified peripheral vascular disease S/P peripheral artery angioplasty Other postprocedural status documented in this encounter [facility] Work Phone: Evaluation note* Diagnosis S/P peripheral artery angioplasty- Primary Other postprocedural status PAD (peripheral artery disease) ([facility]) Unspecified peripheral vascular disease documented in this encounter [facility] Work Phone: Evaluation note* Diagnosis Dry gangrene [place] Primary PVD (peripheral vascular disease) [place] Unspecified peripheral vascular disease Diabetes mellitus due to underlying condition with diabetic polyneuropathy, unspecified whether intermediate project manager insulin use ([facility] Onychomycosis Dermatophytosis of nail Toe pain, bilateral documented in this encounter [facility]* Diagnosis Cataract mature, total senile- Primary Total or mature senile cataract documented in this encounter [facility]* Diagnosis Heel spur, right- Primary Diabetes mellitus due to underlying condition with diabetic polyneuropathy, unspecified whether intermediate project manager insulin use ([facility] Pain due to onychomycosis of toenails of both feet Onychomycosis Dermatophytosis of nail PVD (peripheral vascular disease) ([facility] Unspecified peripheral vascular disease Achilles tendinitis, right leg Contracture of right ankle documented in this encounter [facility]* Diagnosis Heel spur, right- Primary Achilles tendinitis, right leg Contracture of right ankle documented in this encounter [facility]* Diagnosis Paroxysmal atrial fibrillation ([facility]/H[facility])- Primary Atrial fibrillation Benign essential hypertension ([facility]) Essential hypertension, benign Type 2 diabetes mellitus with hyperglycemia, with long-term current use of insulin ([facility]) 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 ([facility]) S/P CABG x 4 Postsurgical aortocoronary bypass status Encounter for screening mammogram for malignant neoplasm of breast Type 2 diabetes mellitus with foot ulcer (CODE) ([facility]) Non-pressure chronic ulcer of other part of left foot with fat layer exposed ([facility]) documented in this encounter [facility]* Diagnosis Type 2 diabetes mellitus with hyperglycemia, with long-term current use of insulin ([facility]) documented in this encounter [facility]* Diagnosis 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 associated with type 2 diabetes mellitus (CMS/HCC)- Primary 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 ([facility]/H[facility]) Epiretinal membrane (ERM) of both eyes Dry eyes Unspecified tear film insufficiency Achilles tendinitis, right leg- Primary Contracture of right ankle Diabetes mellitus due to underlying condition with diabetic polyneuropathy, unspecified whether correction insulin use ([facility]) Pain due to onychomycosis of toenails of both feet PVD (peripheral vascular disease) ([facility]) Unspecified peripheral vascular disease documented in this encounter [facility]* Diagnosis Onset Date Resolution Status Admit Date Weakness acuteApril 2024 6:24pm [facility] Work Phone: Evaluation note* Diagnosis Encounter for screening mammogram for breast cancer- Primary Type 2 diabetes mellitus with hyperglycemia, with long-term current use of insulin ([facility]) Rheumatoid arthritis, unspecified Vitreous hemorrhage, left eye ([facility]) Vitreous hemorrhage Vitreous hemorrhage, right eye ([facility]) Vitreous hemorrhage Atherosclerosis of [place] arteries of right leg with ulceration of thigh ([facility]) documented in this encounter [facility]* Diagnosis Contracture of right ankle- Primary Achilles tendinitis, right leg Diabetes mellitus due to underlying condition with diabetic polyneuropathy, unspecified whether intermediate project manager insulin use ([facility]) Pain due to onychomycosis of toenails of both feet documented in this encounter [facility]* Diagnosis Medicare annual wellness visit, subsequent- Primary 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 ([facility]) Benign essential hypertension ([facility]) Essential hypertension, benign Diverticulosis of colon Diverticulosis of colon (without mention of hemorrhage) Generalized anxiety disorder ([facility]) Generalized anxiety disorder Irritable bowel syndrome with both constipation and diarrhea Mixed hyperlipidemia ([facility]) Mixed hyperlipidemia Paroxysmal atrial fibrillation ([facility]) Atrial fibrillation Peripheral vascular disease ([facility]) Unspecified peripheral vascular disease Polyneuropathy due to type 2 diabetes mellitus ([facility]) Poorly controlled diabetes mellitus ([facility]) Type II or unspecified type diabetes mellitus without mention of complication, not stated as uncontrolled 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 associated with type 2 diabetes mellitus ([facility]) Type 2 diabetes mellitus with hyperglycemia, with long-term current use of insulin ([facility]) Osteopenia, unspecified location Asthma without status asthmaticus without complication, unspecified asthma severity, unspecified whether persistent ([facility]) Arteriosclerosis of arterial coronary artery bypass graft ([facility]) Estrogen deficiency Other ovarian failure Chronic migraine with aura without status migrainosus, not intractable ([facility]) Overweight 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 ([facility]) 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, with long-term current use of insulin, unspecified retinopathy severity ([facility]) Bilateral carotid artery stenosis Occlusion and stenosis of carotid artery without mention of cerebral infarction New onset of congestive heart failure ([facility]) NSTEMI (non-ST elevated myocardial infarction) ([facility]) Acute myocardial infarction, subendocardial infarction, episode of care unspecified Screening for thyroid disorder Routine general medical examination at health care facility Routine general medical examination at a health care facility Screening for colon cancer Special screening for malignant neoplasms, colon documented in this encounter [facility]* Diagnosis Iron deficiency anemia, unspecified iron deficiency anemia type- Primary [facility] Iron deficiency anemia, unspecified iron [...] condition with diabetic polyneuropathy, unspecified whether intermediate project manager insulin use ([facility]) Pain due to onychomycosis of toenails of both feet [facility]* Diagnosis History of colon polyps- Primary Upper abdominal pain Iron deficiency anemia, unspecified iron deficiency anemia type Chronic anticoagulation Encounter for long-term (current) use of anticoagulants Other chronic gastritis without hemorrhage documented in this encounter [facility]* Diagnosis VH (vitreous hemorrhage), right ([facility])- Primary Dry eyes Unspecified tear film insufficiency documented in this encounter [facility]* Diagnosis Contracture of right ankle- Primary Achilles tendinitis, right leg Diabetes mellitus due to underlying condition with diabetic polyneuropathy, unspecified whether correction insulin use ([facility]) documented in this encounter [facility]* Diagnosis Preoperative clearance- Primary Unspecified pre-operative examination Type 2 diabetes mellitus with hyperglycemia, with long-term current use of insulin (HCC) 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, with long-term current use of insulin, unspecified retinopathy severity (HCC) Asthma without status asthmaticus without complication, unspecified asthma severity, unspecified whether persistent ([facility]) Major depressive disorder, single episode, in full remission Major depressive disorder, single episode in full remission Contracture of right ankle- Primary Achilles tendinitis, right leg documented in this encounter [facility]* Diagnosis Contracture of right ankle- Primary Achilles tendinitis, right leg Type 2 diabetes mellitus with hyperglycemia, with long-term current use of insulin ([facility]) documented in this encounter [facility]* Diagnosis Abnormal breast exam- Primary Other sign and symptom in breast Encounter for screening mammogram for malignant neoplasm of breast Type 2 diabetes mellitus with diabetic chronic kidney disease (HCC) Chronic kidney disease, stage 3b ([facility]) Acute non-recurrent pansinusitis Achilles tendinitis, right leg- Primary Diabetes mellitus due to underlying condition with diabetic polyneuropathy, unspecified whether intermediate project manager insulin use ([facility]) Pain due to onychomycosis of toenails of both feet documented in this encounter [facility]* Diagnosis Achilles tendinitis, right leg- Primary Contracture of right ankle Type 2 diabetes mellitus with hyperglycemia, with long-term current use of insulin (HCC) Pain due to onychomycosis of toenails of both feet documented in this encounter [facility]* Diagnosis Acute non-recurrent pansinusitis- Primary documented in this encounter [facility] and physical [facility]* Clinical Note Date No Information [facility] Work Phone: Hisrbvp general Narrative - Reported* Type Description Date Medical History carotid stenosis Medical HistorydiverticulitisMedical HistoryMIMedical HistoryDMMedical History hyperlipidemiaMedical HistoryHTNSurgical HistorycholecystectomySurgical History tonsillectomySurgical OadqircNEWGp3Pafrkmqo Historyhernia repairSurgical History appendectomySurgical Historyquad [id number] Historysee surgical Cardize Other Hisuqfe general Narrative - Reported* Type Description Date Medical History carotid stenosis Medical HistorydiverticulitisMedical HistoryMIMedical HistoryDMMedical History hyperlipidemiaMedical HistoryHTNSurgical HistorycholecystectomySurgical History tonsillectomySurgical [id number] Historyhernia repairSurgical History appendectomySurgical Historyquad [id number] HistoryCardiac [id number] Hospitalization Historysee surgical Cardize Other History of Present illness Narrative* Teena [...] vision, questions or concerns. [facility] N[facility] * Teena Delcid DO - 09/17/2024 9:30 AM EST Images from the original note were not included. Assessment/Plan Diagnoses and all orders for this visit: Pseudophakia - s/p CE OS (POD #7): Patient provided with post-op form. Instructed to continue drops. Discontinueeye shield. Instructed to call immediately with increased pain, redness, decreased vision, questions or concerns. [facility] Narr[facility] * Dale Cronin [...] her primary care physician. documented in this [facility]spital Discharge instructions Additional Instructions DISDISCHARGE INSTRUCTIONS FOR [...] 24 hours. CALL [name at #] OR [facility] AT [phone]: -If excessive bleeding should occur from the [...] Avandament for the next two days.] [ ][facility] Work Phone: Hospital Discharge instructions Additional Instructions Resume Eliquis in 3 days.[facility] Work Phone: Hospital Discharge instructions [...] operative site FOLLOW UP Phone numbers: Office [phone] [facility]pzmnhHol[facility] Work Phone: Progress note* Clinical Note Date No Information [facility] Work Phone: reason for referral (narrative)* Reason For Referral No Information [facility] Work Phone: Reyrjr for referral (narrative)No reason for referral information availableHolmes County [facility] Work Phone: Reason for visit Narrative* Auth/CertSpecialty Diagnoses / ProceduresReferred By ContactReferred To Contact Diagnoses PAD (peripheral artery disease) ([facility]) PAD (peripheral artery disease) ([facility]) [I73.9] Procedures CHG ANGIOGRAPHY EXTREMITY UNILATERAL RS&I Lower Extremity Angiogram and Intervention Nely Curry MD [address] [facility] [place] [place] [address] [facility] [address] [address] [address] [place] [address] Referral IDStatusReasonStart DateExpiration DateVisits RequestedVisits [id number] [facility] Work Phone: Summary Purpose Family History [...] To ContactCardiology Diagnoses PAD (peripheral artery disease) ([facility]) S/P peripheral artery angioplasty Procedures Vascular US Ankle Brachial Index (BRIDGER) Without Exercise Terri Sosa APRN-CINDER PIT WORKER [address] [place] [address] Referral IDStatusReasonStart DateExpiration DateVisits RequestedVisits [id number] Perform Procedure Additional Source Comments REASON FOR VISIT (unrecogniz ed section and content) ReasonCommentsConsultPVR F/ZHyqjfzWvblwdbwEnav-okSvonqzKuevrfiqOfyi-jeHzapncyi ReasonCommentsPost-op Follow-upReasonCommentsDiabetesReasonCommentsDM Foot Care Dm nail careReasonCommentsNew Patient VisitSpecialtyDiagnoses / Procedures Referred By ContactReferred To ContactCardiology Diagnoses PAD (peripheral artery disease) ([facility]) S/P peripheral artery angioplasty Procedures Vascular US Ankle Brachial Index (BRIDGER) Without Exercise Terri Sosa APRN-CINDER PIT WORKER [address] [place] [id number] Referral IDStatusReasonStart DateExpiration DateVisits RequestedVisits [id number] Perform Procedure [id number]-lgEkcsrvPzhrezpuRS Foot CareDM Nails ReasonCommentsCataractReasonCommentsFollow-upRT HEEL SPUR CHECKReasonCommentsMed RefillReasonCommentsFollow-upReasonCommentsConsultColonoscopy- Hx of colon polyps- Last colonoscopy was 2020 Debi Merrill at [facility] and she wants to have pt get an upper and [place] scope done [place]. Pt would rather have thisdone here.SpecialtyDiagnoses / ProceduresReferred By Contact Referred To ContactGeneral Surgery Diagnoses Screening for colon cancer Procedures [place] OFFICE/OUTPATIENT [facility] MDM 60 MINUTES Johnna Cedeño NP [address] [facility] [address] [place] [address] Phone: tel: fax: Dale Fox MD [address] [facility] [address] [place] [address] Phone: tel: fax: Referral IDStatusReasonStart DateExpiration DateVisits RequestedVisits [id number] Specialty Services Required [id number] po EGD/ColonoscopyReasonCommentsEye Pain ReasonCommentsConsent Or InstructionspreopReasonCommentsPost-op5d s/p rt tenotomyReasonCommentsDM Foot Care INFORMATION SOURCE (unrecogn ized section and content) DATE CREATED AUTHOR 07/13/2022 [facility] DATE CREATED AUTHOR AUTHOR'S ORGANIZ ATION 02/04/2023 [facility] DATE CREATED AUTHOR AUTHOR'S ORGANIZ ATION 07/26/2024 [facility] DATE CREATED AUTHOR AUTHOR'S ORGANIZ ATION 07/26/2024 [facility] DATE CREATED AUTHOR AUTHOR'S ORGANIZ ATION 06/01/2025 [facility] DATE CREATED AUTHOR AUTHOR'S ORGANIZ ATION 07/23/2025 [facility] DATE CREATED AUTHOR AUTHOR'S ORGANIZ ATION 08/16/2025 [facility] DATE CREATED AUTHOR AUTHOR'S ORGANIZ ATION 09/12/2025 [facility] DATE CREATED AUTHOR AUTHOR'S ORGANIZ ATION 09/21/2025 [facility] EPIC Care Teams (unrecognized sec [...] MemberRelationship SpecialtyStart DateEnd Date Champ Bell MD [address] [place] [address] PCP - GeneralInternal Medicine03/18/23 Team Status: Inactive [...] MemberRelationshipSpecialtyStart DateEnd Date Champ Bell MD [address] [place] [address] PCP - GeneralInternal Medicine03/18/23 Champ Bell MD [address] [place] [address] PCP - O [facility]01/09/24FridayMagalie LPN [address] [place] [address] Licensed Practical NurseFami Medicine02/27/24Team MemberRelationshipSpecialty Start DateEnd Date Champ Bell MD [address] [place] [address] [facility]CP - [facility]Val[facility] Hospitalnal [facility]03/18/23 Champ Bell MD [address] [place] [address] PCP - [facility]01/09/24FridayMagalie LPN [address] [place] [address] Licensed Practical NurseFamily Medicine02/27/24Team MemberRelationshipSpecialty Start DateEnd Date Champ Bell MD [address] [place] [address] PCP - GeneralInternal Medicine03/18/23 Champ Bell MD [address] [place] [address] PCP - [facility]01/09/24Friday, ABDELRAHMAN MejiasN [address] [place] [address] Licensed Practical NurseFamily Medicine02/27/24Team MemberRelationshipSpecialty Start DateEnd Date Champ Bell MD [address] [place] [address] PCP - GeneralInternal Medicine03/18/23 Champ Bell MD [address] [place] [address] PCP - [facility]01/09/24Friday, ABDELRAHMAN MejiasN [address] [place] [address] Licensed Practical NurseFall River Hospital Medicine02/27/24Te MemberRelationshipSpecialty Start DateEnd Date Champ Bell MD [address] [place] [address] PCP - GeneralInternal Medicine03/18/23 Chapm Bell MD [address] [place] [address] PCP - [facility]01/09/24Friday, Magalie SKID MACHINE OPERATOR [address] [place] [address] Licensed Practical NurseFamily Medicine02/27/24Team MemberRelationshipSpecialty Start DateEnd Date Champ Bell MD [address] [place] [address] PCP - GeneralInternal Medicine03/18/23 Champ Bell MD [address] [place] [address] PCP - [facility]01/09/24Friday, Magalie, SKID MACHINE OPERATOR [address] [place] [address] Licensed Practical NurseFall River Hospital Medicine02/27/24Team MemberRelationshipSpecialty Start DateEnd Date Champ Bell MD [address] [place] [address] [facility] - [facility]03/18/23 Champ Bell MD [address] [place] [address] [facility] - [facility]01/09/24Friday, Magalie, SKID MACHINE OPERATOR [address] [place] [address] Licensed Practical NurseArch[facility]02/27/24Team MemberRelationshipSpecialty Start DateEnd Date Champ Bell MD [address] [place] [address] PCP - GeneralValley Hospitalnal Medicine03/18/23 Champ Bell MD [address] [place] [address] PCP - [facility]01/09/24Friday, Magalie, SKID MACHINE OPERATOR [address] [place] [address] Licensed Practical NurseFall River Hospital Medicine02/27/24Team MemberRelationshipSpecialty Start DateEnd Date Champ Bell MD [address] [place] [address] PCP - GeneralInternal Medicine03/18/23 Champ Bell MD [address] [place] [address] PCP - [facility]01/09/24Friday, Magalie, SKID MACHINE OPERATOR [address] [place] [address] Licensed Practical NurseFamily Medicine02/27/24Team MemberRelationshipSpecialty Start DateEnd Date Champ Bell MD [address] [place] [address] PCP - GeneralInternal Medicine03/18/23 Champ Bell MD [address] [place] [address] PCP - [facility] Reach01/09/24Friday, JAMESON Mejias [address] [place] [address] Licensed Practical NurseFamily Medicine02/27/24Team MemberRelationshipSpecialty Start DateEnd Date Noe Conklin DO [address] [facility] [address] [place] [address] PCP - GeneralFamily MedicineTeam MemberRelationshipSpecialtyStart DateEnd Date Champ Bell MD [address] [place] [address] PCP - GeneralInternal Medicine03/18/23 Champ Bell MD [address] [place] [address] PCP - O [facility]01/09/24Friday, Magalie, SKID MACHINE OPERATOR [address] [place] [address] Licensed Practical NurseFafall river general hospital Medicine02/27/24Team MemberRelationshipSpecialty Start DateEnd Date Champ Bell MD [address] [place] [address] PCP - GeneralValley Hospitalnal Medicine03/18/23 Champ Bell MD [address] [place] [address] [facility] Reach01/09/24Friday, Magalie, SKID MACHINE OPERATOR [address] [place] [address] Licensed Practical NurseArch[facility]02/27/24Te MemberRelationshipSpecialty Start DateEnd Date Champ Bell MD [address] [place] [address] PCP - GeneralValley Hospitalnal Medicine03/18/23 Champ Bell MD [address] [place] [address] [facility] - [facility]01/09/24Friday, Magalie, SKID MACHINE OPERATOR [address] [place] [address] Licensed Practical NurseFall River Hospital Medicine02/27/24Te MemberRelationshipSpecialty Start DateEnd Date Champ Bell MD [address] [place] [address] PCP - GeneralInternal Medicine03/18/23 Champ Bell MD [address] [place] [address] PCP - [facility]01/09/24FridayMagalie LPN [address] [place] [address] Licensed Practical NurseFamily Medicine02/27/24Team MemberRelationshipSpecialty Start DateEnd Date Champ Bell MD [address] [place] [address] PCP - GeneralInternal Medicine03/18/23 Champ Bell MD [address] [place] [address] PCP - O Reach01/09/24FridayMagalie LPN [address] [place] [address] Licensed Practical NurseFamily Medicine02/27/24Team MemberRelationshipSpecialty Start DateEnd Date Champ Bell MD [address] [place] [address] PCP - GeneralInternal Medicine03/18/23 Champ Bell MD [address] [address] [place] [address] PCP - [facility]01/09/24 Lauren Finn, RN Licensed Practical NurseFamily Medicine12/17/24Team MemberRelationshipSpecialty Start DateEnd Date Champ Bell MD [address] [place] [address] PCP - GeneralInternal Medicine03/18/23 Champ Bell MD [address] [place] [address] PCP - [facility]01/09/24 Lauren Finn, WARD [facility] Medicine12/17/24Te MemberRelationshipSpecialty Start DateEnd Date Champ Bell MD [address] [place] [address] [facility] - [facility]/18/23 Champ Bell MD [address] [place] [address] [facility] - [facility]01/09/24 Lauren Finn, WARD [facility] Medicine12/17/24Te MemberRelationshipSpecialty Start DateEnd Date Champ Bell MD [address] [place] [address] [facility]03/18/23 Champ Bell MD [address] [place] [address] [facility]01/09/24 Lauren Finn RN [facility] Medicine12/17/24Te MemberRelationshipSpecialty Start DateEnd Date Champ Bell MD [address] [place] [address] [facility] - [facility]03/18/23 Champ Bell MD [address] [place] [address] PCP - [facility]01/09/24 Lesa Browne, [facility] 02/01/25Team MemberRelationshipSpecialtyStart DateEnd Date Champ Bell MD [address] [place] [address] PCP - GeneralInternal Medicine03/18/23 Champ Bell MD [address] [place] [address] PCP - [facility]01/09/24 Lesa Browne, [facility] 02/01/25Team MemberRelationshipSpecialtyStart DateEnd Date Champ Bell MD [address] [place] [address] [facility]/18/23 Champ Bell MD [address] [place] [address] PCP - [facility]01/09/24 Lesa Browne, [facility] 02/01/25Team MemberRelationshipSpecialtyStart DateEnd Date Champ Bell MD [address] [place] [address] [facility] - [facility]/18/23 Champ Bell MD [address] [place] [address] PCP - [facility]01/09/24 Lesa Browne, [facility] 02/01/25Team MemberRelationshipSpecialtyStart DateEnd Date Champ Bell MD [address] [place] [address] PCP - GeneralInternal Medicine03/18/23 Champ Bell MD [address] [place] [address] PCP - [facility]01/09/24 Lesa Browne SKID MACHINE OPERATOR 02/01/25 Team Status: Inactive Member Role Status Dates Champ Bell II MD Primary Care Provid er, Attending Provider Active Start: March 10, 2025 End: March 10, 2025Team MemberRelationshipSpecialtyStart DateEnd Date Champ Bell MD [address] [place] [address] PCP - GeneralInternal Medicine03/18/23 Champ Bell MD [address] [facility] [address] [place] [address] PCP - [facility]01/09/24 Lesa Browne SKID MACHINE OPERATOR 02/01/25Team MemberRelationshipSpecialtyStart DateEnd Date Champ Bell MD [address] [facility] [address] [place] [address] [facility]CP - [facility]03/18/23 Champ Bell MD [address] [facility] [address] [place] [address] PCP - [facility]01/09/24 Lesa Browne [facility] 02/01/25Team MemberRelationshipSpecialtyStart DateEnd Date Charlene Mckinley MD [address] [place] [address] [place] [address] [facility]05/09/25Team MemberRelationshipSpecialtyStart DateEnd Date Champ Bell MD [address] [place] [address] PCP - GeneralInternal Medicine03/18/23 Champ Bell MD [address] [place] [address] PCP - [facility]01/09/24 Lesa Browne LPN [address] [place] [address] 02/01/25Team MemberRelationshipSpecialtyStart DateEnd Date Champ Bell MD [address] [place] [address] [facility]/18/23 Champ Bell MD [address] [place] [address] PCP - [facility]01/09/24 Lesa Browne LPN [address] [place] [address] 02/01/25 Team Status: Inactive Member Role Status Dates Champ Bell II MD Primary Care Provider Active Start: June 09, 2025 End: June 09Vannesa Hernández ProviderActiveStart: June 09, 2025 End: June 09, 2025Team MemberRelationshipSpecialtyStart DateEnd Date Champ Bell MD [address] [place] [address] [facility] - [facility]03/18/23 Champ Bell MD [address] [place] [address] PCP - [facility]01/09/24 Browne, Lesa, SKID MACHINE OPERATOR [address] [place] [address] 02/01/25Team MemberRelationshipSpecialtyStart DateEnd Date Champ Bell MD [address] [place] [address] PCP - GeneralInternal Medicine03/18/23 Champ Bell MD [address] [place] [address] PCP - [facility]01/09/24 Lesa Browne LPN [address] [place] [address] 02/01/25Team MemberRelationshipSpecialtyStart DateEnd Date Champ Bell MD [address] [place] [address] PCP - GeneralInternal Medicine03/18/23 Champ Bell MD [address] [place] [address] PCP - [facility]01/09/24 Lesa Browne LPN [address] [place] [address] 02/01/25Team MemberRelationshipSpecialtyStart DateEnd Date Champ Bell MD [address] [place] [address] PCP - GeneralInternal Medicine03/18/23 Champ Bell MD [address] [place] [address] PCP - [facility]01/09/24 Lesa Browne LPN [address] [place] [address] 02/01/25 Team Status: Inactive Member Role Status Dates Champ Bell II MD Primary Care Provider Active Start: July 19, 2025 End: July 19, 2025Santo Guo ProviderActiveStart: July 19, 2025 End: July 19, 2025Team MemberRelationshipSpecialtyStart DateEnd Date Champ Bell MD [address] [place] [address] PCP - GeneralInternal Medicine03/18/23 Champ Bell MD [address] [place] [address] PCP - [facility]01/09/24 Lesa Browne LPN [address] [place] [address] 02/01/25Team MemberRelationshipSpecialtyStart DateEnd Date Champ Bell MD [address] [place] [address] PCP - GeneralInternal Medicine03/18/23 Champ Bell MD [address] [place] [address] PCP - [facility]01/09/24 Lesa Browne LPN [address] [place] [address] 02/01/25 Team Status: Inactive Member Role Status Dates Champ Bell II MD Primary Care Provider Active Start: July 22, 2025 End: July 22, 2025Santo Guo ProviderActiveStart: July 22, 2025 End: July 22, 2025Team MemberRelationshipSpecialtyStart DateEnd Date Champ Bell MD [address] [place] [address] PCP - GeneralInternal Medicine03/18/23 Champ Bell MD [address] [place] [address] PCP - [facility]01/09/24 Lesa Browne LPN [address] [place] [address] 02/01/25Team MemberRelationshipSpecialtyStart DateEnd Date Champ Bell MD [address] [place] [address] PCP - GeneralInternal Medicine03/18/23 Champ Bell MD [address] [place] [address] PCP - [facility]01/09/24FridayMagalie LPN [address] [place] [address] Licensed Practical NurseFamily Medicine/06/03 Lauren Finn, WARD [address] [place] [address] Licensed Practical NurseFamily Medicine/ Lesa Browne LPN [address] [place] [address] 02/01/25Team MemberRelationshipSpecialtyStart DateEnd Date Champ Bell MD [address] [place] [address] PCP - GeneralInternal Medicine03/18/23 Champ Bell MD [address] [place] [address] PCP - [facility]01/09/24FridayMagalie LPN [address] [place] [address] Licensed Practical NurseFamily Medicine/06/03 Lauren Finn, WARD [address] [place] [address] Licensed Practical NurseFamily Medicine Lesa Browne LPN [address] [place] [address] 02/01/25Team MemberRelationshipSpecialtyStart DateEnd Date Champ Bell MD [address] [place] [address] PCP - GeneralInternal Medicine03/18/23 Champ Bell MD [address] [place] [address] PCP - [facility]01/09/24 Lesa Browne LPN [address] [place] [address] 02/01/25 Goals (unrecognized section and content) Goals [...] (Given - Provider: Ana Guillen, WARD) * 0714 (Given - Provider: Massiel Sesay [...] 41 to 70 mg/dL, Starting on Fri06/21/24 [id number], May repeat until blood glucose level reaches [...] or prosecute any alcohol or drug abuse patient.[facility] FOR RECORDS PERTAINING TO PATIENTS WHO ARE [...] BE BASED ON THE PRIMARY CLINICAL RECORDS. [facility]. provides no warranty or guarantee of the accuracy or completeness of information in this document.
[2025-11-07] MEDS: CARVEDILOL 25 MG TABLET PO ×2 (05:57→21:05)
[2025-11-07] MEDS: HYDRALAZINE HCL 50 MG TABLET PO ×2 (05:57→17:55)
--- NOTE | 2025-11-07 08:00 | ECG_ITS ---
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 Measurements Intervals [place] Rate: 74 P: 43 IL: 137 QRS: 27 QRSD: 97 T: -31 QT: 399 QTc: 444 Interpretive Statements SINUS RHYTHM NONSPECIFIC ST & T-WAVE ABNORMALITY 9150 abnormal ECG Compared to ECG 11/07/2025 00:36:58 No significant changes Electronically Signed On 11-09-2025 7:57:07 EST by PANCHITO TRINIDAD M.D.
[2025-11-07 08:42] LABS: Thyroid Stimulating Hormone 0.627 uIU/mL (0.358-3.740)
--- NOTE | 2025-11-07 09:07 | CA_ITS ---
Patient Name: MARIMAR MCDANIEL MR#: [id number] : 1955 Exam Date: 11/07/2025 Ordering Doctor: VIJI DURON ECHOCARDIOGRAM REPORT PROCEDURE: CA ECHO DOPPLER COMPLETE INDICATIONS: assess LV function, CABGx4, bioprosthetic aortic valve, COPD, hypertension, MRSA COMPARISON: None. DESCRIPTION: COMPLETE ECHOCARDIOGRAM Real-time transthoracic echocardiography with 2D, M-mode, spectral and color flow Doppler performed. QUALITY: Technical quality was good. LEFT VENTRICLE: Normal chamber size. Thickened septal wall. Normal systolic function. Estimated left ventricular ejection fraction is 65-70%. LV EF: Normal left ventricular ejection fraction, (>55%). DIASTOLIC: Grade II diastolic dysfunction. Elevated left sided filling pressures. ATRIAL SEPTUM: LEFT ATRIUM: Moderate dilatation. RIGHT ATRIUM: Mild dilatation. RIGHT VENTRICLE: Normal chamber size. Normal right ventricular systolic function. TRICUSPID VALVE: Normal mobility and thickness. No stenosis with mild regurgitation. Doppler studies reveal moderately (45-60) elevated right sided pressures. RVSP 52 mmHg MITRAL VALVE: Moderately thickened with normal mobility. Mild mitral valve stenosis. Mean diastolic gradient 4.3 mmHg at a heart rate of 64 bpm. Mitral valve area by pressure half-time 2.5 cm?. Moderate mitral annular calcification. Mild to moderate mitral regurgitation. AORTIC VALVE: Bio-Prosthetic valve appears well seated in the aortic position with normal doppler flow. Mean gradient 12 mmHg, peak velocity 2.3 m/s. No aortic regurgitation. AORTIC ROOT: Normal diameter and appearance, measuring 2.9 cm. PULMONIC VALVE: Normal thickness and mobility. No stenosis. Trivial regurgitation. PERICARDIUM: No evidence of pericardial effusion. IVC: Collapses with inspiration. IVC is dilated (2.3 cm) PLEURA: CONCLUSION: 1. Normal left ventricular size and systolic function. Estimated LVEF is 65 to 70%. 2. Normal right ventricular size and systolic function. 3. Mild to moderate biatrial dilatation. 4. Grade 2 diastolic dysfunction. 5. Bioprosthetic TAVR valve is well-seated in the aortic position with normal Doppler flows and no regurgitation. 6. Mild mitral stenosis with mild to moderate regurgitation. 7. Mild tricuspid regurgitation. 8. Moderately elevated right-sided pressures. RVSP is 52 mmHg. 9. Doppler indices indicate elevated left-sided filling pressures. Adult Echocardiography Procedure Report Left Ventricle LVEDD (3.7 - 5.6 cm): 4.41 cm LVESD (2.2 - 4.0 cm): 2.90 cm LVIVS thickness (0.6 - 1.2 cm): 1.26 cm LVPW thickness (0.5 - 1.0 cm): 0.91 cm e': 0.10 m/s E - e': 15.72 LVOT Max Gradient: 5.56 mm[Hg] LVOT Area (cm2): 1.18 m/s Peak Velocity (LVOT): 1.18 m/s Mean Velocity (LVOT): 0.88 m/s LVOT Diameter 1.98 cm Left Ventricular Ejection Fraction: 65-70 % Left Atrium LA Volume Index (2D A2C): 38.32 ml/m2 Left Atrium Systolic Dimension: 4.35 cm Mitral Valve MV E to A Ratio: 1.60 Mitral Valve A-Wave Peak Velocity: 1.01 m/s Mitral Valve E-Wave Peak Velocity: 1.62 m/s Right Ventricle Aorta AO Root Diam: 2.90 cm Aortic Valve AoV Area (Peak Morgan): 1.60 cm2, 1.60 cm2 AoV Area (VTI): 1.84 cm2, 1.84 cm2 Peak Velocity(Antegrade Flow): 2.28 m/s Peak Gradient(Antegrade Flow): 20.77 mm[Hg] Mean Velocity(Antegrade Flow): 1.68 m/s Mean Gradient(Antegrade Flow): 12.46 mm[Hg] Velocity Time Integral: 60.58 cm Tricuspid Valve Peak Velocity (Regurgitant Flow): 2.86 m/s, 3.31 m/s Pulmonic Valve Mean Gradient: 2.62 mm[Hg] Mean Velocity: 0.75 m/s Peak Velocity: 1.15 m/s Peak Gradient: 5.27 mm[Hg] Right Atrium Right Atrium Systolic Pressure: 50.16 ml, 50.16 ml Dictated by: Valente Chacon M.D. on 11/07/2025 at 15:53 Approved by: Valente Chacon M.D. on 11/07/2025 at 16:00
--- NOTE | 2025-11-07 09:08 | PM.IMHP1 ---
Internal Medicine - H&P: HPI History of Present Illness Chief complaint: CHF HYPOXIA Narrative: Diann Patel is a 70 y/o F, h/o CHF and COPD, uses O2 at night, presented to [facility] emergency room from home due to shortness of breath, found to be hypoxic with troponin elevation and BNP elevation prompting request for medical admission. On assessment at bedside in the regular nursing floor, patient resting in bed, states that for the past couple of days has had progressive shortness of breath, yesterday was increasing requiring 3 L while walking downstairs, and then rising O2 needs prompting presentation. Denies any fevers, chills, nausea, vomiting, productive cough. Did receive Lasix 40 mg IV in the emergency room with improvement in symptoms today. In the emergency room, WBC 13.5, hemoglobin 9.3, platelet count 211, sodium 138, potassium 4.2, BUN 20, creatinine 0.91, glucose 210, high-sensitivity troponin I 61.9, NT-proBNP 4313. Influenza and COVID-negative. Chest x-ray shows mild cardiomegaly with interstitial changes bilaterally, possible right pleural effusion. Review of Systems ROS Status of ROS 10 or more systems reviewed and unremarkable except as noted in history and below [facility] Medical History (Updated 11/07/25 @ 12:25 by VIJI DURON MD) Abdominal hernia ?K46.9 - Unspecified abdominal hernia without obstruction or gangrene (ICD-10) MRSA (methicillin resistant Staphylococcus aureus) ?A49.02 - Methicillin resistant Staphylococcus aureus infection, unspecified site (ICD-10) COPD (chronic obstructive pulmonary disease) ?J44.9 - Chronic obstructive pulmonary disease, unspecified (ICD-10) CHF (congestive heart failure) ?I50.9 - Heart failure, unspecified (ICD-10) Hypoglycemia ?E16.2 - Hypoglycemia, unspecified (ICD-10) EVA (acute kidney injury) ?N17.9 - Acute kidney failure, unspecified (ICD-10) Hypertension ?I10 - Essential (primary) hypertension (ICD-10) Hyperlipidemia ?E78.5 - Hyperlipidemia, unspecified (ICD-10) Heart disease ?I51.9 - Heart disease, unspecified (ICD-10) Surgical History (Updated 11/07/25 @ 03:39 by Mirna Caal RN) History of heart artery stent ?Z95.5 - Presence of coronary angioplasty implant and graft (ICD-10) History of cholecystectomy ?Z90.49 - Acquired absence of other specified parts of digestive tract (ICD-10) History of hysterectomy ?Z90.710 - Acquired absence of both cervix and uterus (ICD-10) History of partial surgical removal of colon ?Z90.49 - Acquired absence of other specified parts of digestive tract (ICD-10) History of appendectomy ?Z90.49 - Acquired absence of other specified parts of digestive tract (ICD-10) 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.1 - Presence of aortocoronary bypass graft (ICD-10) Family History (Updated 11/07/25 @ 03:39 by Mirna Caal RN) Father Family history of CHF (congestive heart failure) Family history of myocardial infarction Mother Family history of cancer Family history of diabetes mellitus Family history of hypertension Sister Family history of diabetes mellitus Family history of cancer Brother Family history of myocardial infarction Family history of stroke Social History (Updated 02/08/24 @ 16:46 by Letty Saleem) Within the past year, how often did you have a drink containing alcohol: never Score interpretation: A score less than 3 is consistent with normal alcohol consumption. Smoking status: Never smoker Non-prescribed substance use: denies use Previous occupational history: retired Highest level of school completed/degree received: 11th grade Are you now , , , , never or living with a partner: In a typical week, how many times do you talk on the telephone with family, friends, or neighbors: twice per week How often do you get together with friends or relatives: twice per week How often do you attend sabianism or latter day services: never Do you belong to any clubs or organizations such as sabianism groups unions, fraternal or athletic groups, or school groups: no Total score: 2 Score interpretation: A score of greater than or equal to 2 indicates the lowest level of social isolation. Little interest or pleasure in doing things: not at all Feeling down, depressed, or hopeless: not at all Feel stressed/tense/nervous/anxious/difficulty sleeping: not at all Do you think of yourself as: straight/heterosexual Gender Identity: female Meds Home Medications and Allergies Home Medications ?Medication ?Instructions ?Recorded ?Confirmed ?Type apixaban 5 mg tablet (Eliquis) 5 mg PO BID 02/08/24 11/07/25 History atorvastatin 80 mg tablet 80 mg PO DAILY 02/08/24 11/07/25 History citalopram 20 mg tablet 20 mg PO DAILY 02/08/24 11/07/25 History gabapentin 300 mg capsule 300 mg PO BID 02/08/24 11/07/25 History insulin regular human 100 unit/mL 22 unit subcut AC 02/08/24 11/07/25 History injection solution (Novolin R Regular U-100 Insulin) lisinopril 20 mg tablet 20 mg PO DAILY 02/08/24 11/07/25 History potassium chloride 20 mEq 20 meq PO DAILY 02/08/24 11/07/25 History tablet,extended release(part/cryst) (Klor-Con M) amlodipine 10 mg tablet 10 mg PO .QD 02/18/25 11/07/25 History carvedilol 25 mg tablet 25 mg PO Q12H 02/18/25 11/07/25 History ferrous sulfate 325 mg (65 mg 325 mg PO .every other day 02/18/25 11/07/25 History iron) tablet (Neftaly-Time) furosemide 40 mg tablet 40 mg PO Q12H 02/18/25 11/07/25 History hydralazine 25 mg tablet 50 mg PO Q12H 02/18/25 11/07/25 History insulin glargine 100 unit/mL (3 50 unit subcut .QHS 02/18/25 11/07/25 History mL) subcutaneous pen (Lantus Solostar U-100 Insulin) loratadine 10 mg capsule (Allergy 10 mg PO DAILY 02/18/25 11/07/25 History Relief (loratadine)) methocarbamol 500 mg tablet 500 mg PO Q8H PRN pain #20 tabs 05/03/25 11/07/25 Rx ondansetron 4 mg disintegrating 4 mg PO TID PRN nausea and vomiting 11/07/25 11/07/25 History tablet Allergies Allergy/AdvReac Type Severity Reaction Status Date / Time Penicillins Allergy Severe Hives Verified 05/03/25 12:51 Exam Narrative Exam Narrative: General: cooperative and tired appearing Orientation: alert, awake and oriented x3 Head: normal to inspection Neck: normal visual inspection Cardio: Hepatojugular reflux present, + JVD, regular rate, regular rhythm Chest palpation & inspection: normal inspection of the chest Resp Effort & Inspection: bilateral rales present Abd: soft, non-tender, non-distended Extremities: Warm well perfused, 1+ b/l pitting edema LE Constitutional Vital Signs, click to edit/add: Last Vital Signs Temp 98.8 F 11/07/25 03:47 Pulse 62 11/07/25 08:00 Resp 20 11/07/25 03:47 BP 159/61 H 11/07/25 05:57 Pulse Ox 92 L 11/07/25 04:56 O2 Del Method Nasal Cannula 11/07/25 04:56 O2 Flow Rate 3 11/07/25 04:56 Internal Medicine - H&P: Reslt Labs Labs: Short CBC 11/07/25 Range/Units 00:36 WBC 13.5 H (4.0-11.0) 10^3/uL Hgb 9.3 L (12.0-16.0) g/dL Hct 29.4 L (36.0-48.0) % Plt Count 211 (150-450) 10^3/uL BMP 11/07/25 00:36 Sodium 138 Potassium 4.2 Chloride 101 Carbon Dioxide 30.3 BUN 20.0 H Creatinine 0.91 Glucose 210 H Calcium 9.1 Assessment and Plan Assessment and Plan (1) Pulmonary edema with congestive heart failure: (2) COPD (chronic obstructive pulmonary disease): (3) Diabetes: (4) Hypertensive emergency: Plan Diann Patel is a 70 y/o F, h/o HFpEF, aortic stenosis s/p TAVR, paroxysmal afib on apixiban, CAD s/p bypass surgery (cardiac cath on 02/2025), PAD s/p LLE intervention, HTN and COPD, uses O2 at night, presented to [facility] emergency room from home due to shortness of breath, found to be hypoxic with troponin elevation and BNP elevation prompting request for medical admission. 1. HFpEF exacerbation with hypertensive emergency on presentation - In the emergency room, WBC 13.5, hemoglobin 9.3, platelet count 211, sodium 138, potassium 4.2, BUN 20, creatinine 0.91, glucose 210, high-sensitivity troponin I 61.9, NT-proBNP 4313. Influenza and COVID-negative. Chest x-ray shows mild cardiomegaly with interstitial changes bilaterally, possible right pleural effusion. - Continue diuresis with Lasix 40 mg IV twice daily - Increase home blood pressure control with lisinopril to 40 mg daily - Will hold on additional antibiotics and steroids at this time given rapid improvement blood Lasix - low sodium diet, fluid restrict 1.5 L, daily weights - goal for net negative 1.5 - 2 L - Check echocardiogram to reassess LV function - Consult cardiology 2.h/o aortic stenosis s/p TAVR, paroxysmal afib on apixiban, CAD s/p bypass surgery (cardiac cath on 02/2025), PAD s/p LLE intervention, HTN, DM II, and COPD - Low suspicion for infectious etiology given lack of fevers or chills - Continue home meds including Diet: heart healthy Daily Labs: CBC, BMP Lines/Drains: PIV DVT ppx: apixiban Code status: Full Status: inpatient for hypoxia
[2025-11-07] MEDS: ATORVASTATIN CALCIUM 40 MG TABLET 80 MG PO (09:35)
[2025-11-07] MEDS: AMLODIPINE BESYLATE 5 MG TABLET 10 MG PO (09:35)
[2025-11-07] MEDS: GABAPENTIN 300 MG CAPSULE PO ×2 (09:36→21:05)
[2025-11-07] MEDS: APIXABAN 5 MG TABLET PO ×2 (09:36→21:05)
[2025-11-07] MEDS: CITALOPRAM HYDROBROMIDE 20 MG TABLET PO (09:36)
[2025-11-07] MEDS: LISINOPRIL 20 MG TABLET PO (09:36)
[2025-11-07] MEDS: FERROUS SULFATE 325 MG TABLET PO (09:36)
[2025-11-07] MEDS: CETIRIZINE HCL 10 MG TABLET PO (09:36)
[2025-11-07] MEDS: POTASSIUM CHLORIDE 10 MEQ ER TABLET 20 MEQ PO (09:36)
[2025-11-07] MEDS: INSULIN ASPART 300 UNIT/3 ML PEN SUBQ ×4 (09:48→21:06)
--- NOTE | 2025-11-07 10:00 | CM.NOTE ---
Rounds made with Dr. Farias, discussed with pt diagnosis and plan of care. Pt inpatient status, no discharge today. Cardiology will consult on pt today for further recommendations.
[2025-11-07] MEDS: INSULIN GLARGINE 300 UNIT/3 ML INSULN.PEN 20 UNIT SQ (12:22)
[2025-11-07] MEDS: LISINOPRIL 10 MG TABLET 20 MG PO (12:54)
--- NOTE | 2025-11-07 13:19 | SWNOTE1 ---
URIEL met with pt to discuss dc needs. Pt was sitting up in bed, pt's niece in room. Pt lives at home with her and son. Pt voiced she has all the equipment she needs at home such as walker and cane. Pt does have home oxygen that she wears at night only. She thinks it is 2 liters. She sleeps upstairs and sleeps downstairs because he can't do the steps anymore. She stated she is still kicking it and can do the steps. Pt then stated she is looking in to the inogen machine. SW did recommend she go through her PCP for this as they require a lot of history and documentation to have it covered by insurance (or it is an out of pocket expense). She voiced understanding and will go through Dr. Bell for this. Pt denies any discharge needs. URIEL did ask her where her oxygen was from? She thinks somewhere in [place], but not sure. SW to call [facility].
--- NOTE | 2025-11-07 13:31 | SWNOTE1 ---
URIEL called [facility], [facility], and [facility] and she does not have oxygen from any. Samra at [facility] was able to find that pt has oxygen from [facility]. URIEL called and spoke with Amy at [employer] [facility] and pt does have oxygen at only, 2 liters. SW updated nurse.
--- NOTE | 2025-11-07 13:55 | CM.NOTE ---
Important Message From Medicare discussed with pt, pt verbalizes understanding and signs paper. Original given to pt and copy placed on pt's chart.
[2025-11-07] MEDS: INSULIN GLARGINE 300 UNIT/3 ML INSULN.PEN 40 UNIT SQ (17:55)
[2025-11-08] VITALS (19 sets, daily range): BP systolic 130–160; BP diastolic 52–76; PULSE 58–72; TEMP 36.6–37.1; O2SAT 91–96
[2025-11-08 05:34] LABS: Hematocrit 25.6 % (36.0-48.0); Hemoglobin 8.2 g/dL (12.0-16.0); Immature Granulocytes Abs Auto 0.07 10^3/uL (0.00-0.03); Immature Granulocytes Pct Auto 0.5 % (0.0-0.5); Lymphocytes Absolute Auto 1.2 10^3/uL (1.2-3.8); Mean Corpuscular HGB Conc 32.0 g/dL (29.9-35.2); Mean Corpuscular Hemoglobin 28.5 pg (26.7-34.0); Mean Corpuscular Volume 88.9 fL (81.0-99.0); Platelet Count 201 10^3/uL (150-450); Red Blood Count 2.88 10^6/uL (4.20-5.40); White Blood Count 14.4 10^3/uL (4.0-11.0)
[2025-11-08] MEDS: HYDRALAZINE HCL 50 MG TABLET PO ×3 (05:37→22:00)
[2025-11-08 05:59] LABS: Alanine Aminotransferase 17 U/L (14-59); Albumin Globulin Ratio 0.8; Albumin Level 2.9 g/dL (3.4-5.0); Alkaline Phosphatase 70 U/L (46-116); Anion Gap 9.3; Aspartate Amino Transferase 12 U/L (15-37); Blood Urea Nitrogen 48.0 mg/dL (7.0-18.0); Calcium 9.1 mg/dL (8.5-10.1); Carbon Dioxide 27.1 mmol/L (21.0-32.0); Chloride 101 mmol/L (98-107); Cholesterol 158 mg/dL (<=200); Estimated GFR (African America 59 (>=60 mL/min/1.73m^2); Estimated GFR (Non-African Ame 49 (>=60 mL/min/1.73m^2); Globulin 3.6 g/dL; Glucose 326 mg/dL (74-106); HDL Cholesterol 48 mg/dL (40-60); Potassium 4.4 mmol/L (3.5-5.1); Sodium 133 mmol/L (136-145); Total Protein 6.5 g/dL (6.4-8.2); Triglycerides 101 mg/dL (<=150); VLDL CHOLESTEROL 20.2 mg/dL
[2025-11-08] MEDS: ATORVASTATIN CALCIUM 40 MG TABLET 80 MG PO (08:23)
[2025-11-08] MEDS: CITALOPRAM HYDROBROMIDE 20 MG TABLET PO (08:23)
[2025-11-08] MEDS: POTASSIUM CHLORIDE 10 MEQ ER TABLET 20 MEQ PO (08:24)
[2025-11-08] MEDS: GABAPENTIN 300 MG CAPSULE PO ×2 (08:24→22:00)
[2025-11-08] MEDS: AMLODIPINE BESYLATE 5 MG TABLET 10 MG PO (08:24)
[2025-11-08] MEDS: CETIRIZINE HCL 10 MG TABLET PO (08:24)
[2025-11-08] MEDS: APIXABAN 5 MG TABLET PO ×2 (08:24→22:01)
[2025-11-08] MEDS: LISINOPRIL 20 MG TABLET 40 MG PO (08:24)
[2025-11-08] MEDS: FUROSEMIDE 40 MG/4 ML VIAL IVP ×2 (08:25→19:59)
[2025-11-08] MEDS: CARVEDILOL 25 MG TABLET PO ×2 (08:30→22:00)
[2025-11-08] MEDS: INSULIN ASPART 300 UNIT/3 ML PEN SUBQ ×4 (08:32→22:01)
--- NOTE | 2025-11-08 09:40 | P.IMPN_ITS ---
Progress Note: A&P Assessment and Plan (1) Pulmonary edema with congestive heart failure: (2) COPD (chronic obstructive pulmonary disease): (3) Diabetes: (4) Hypertensive emergency: Plan Diann Patel is a 70 y/o F, h/o HFpEF, aortic stenosis s/p TAVR, paroxysmal afib on apixiban, CAD s/p bypass surgery (cardiac cath on 02/2025), PAD s/p LLE intervention, HTN and COPD, uses O2 at night, presented to [facility] emergency room from home due to shortness of breath, found to be hypoxic with troponin elevation and BNP elevation prompting request for medical admission. 1. HFpEF exacerbation with hypertensive emergency on presentation - In the emergency room, WBC 13.5, hemoglobin 9.3, platelet count 211, sodium 138, potassium 4.2, BUN 20, creatinine 0.91, glucose 210, high-sensitivity troponin I 61.9, NT-proBNP 4313. Influenza and COVID-negative. Chest x-ray shows mild cardiomegaly with interstitial changes bilaterally, possible right pleural effusion. - Continue diuresis with Lasix 40 mg IV twice daily - Increase home blood pressure control with lisinopril to 40 mg daily - Will hold on additional antibiotics and steroids at this time given rapid improvement blood Lasix - low sodium diet, fluid restrict 1.5 L, daily weights - goal for net negative 1.5 - 2 L - echo shows preserved EF, 65-70% - start dapagliflozin for HFpEF - potential d/c tomorrow after walk study 2.h/o aortic stenosis s/p TAVR, paroxysmal afib on apixiban, CAD s/p bypass surgery (cardiac cath on 02/2025), PAD s/p LLE intervention, HTN, DM II, and COPD - Low suspicion for infectious etiology given lack of fevers or chills - Continue home meds including Diet: heart healthy Daily Labs: CBC, BMP Lines/Drains: PIV DVT ppx: apixiban Code status: Full Status: inpatient for hypoxia, CHF exacerbation Internal Medicine - PN: Subj Subjective Interval history: Feels significantly improved at rest and weaned off of supplemental O2, however clinically remains volume overloaded. Exam Narrative Exam Narrative: General: cooperative and tired appearing Orientation: alert, awake and oriented x3 Head: normal to inspection Neck: normal visual inspection Cardio: +ve hepatojugular reflux and JVD, regular rate, regular rhythm Chest palpation & inspection: normal inspection of the chest Resp Effort & Inspection: bilateral rales reduced but present Abd: soft, non-tender, non-distended Extremities: Warm well perfused, 1+ b/l pitting edema LE Constitutional Vital Signs, click to edit/add: Last Vital Signs Temp 97.9 F 11/08/25 08:06 Pulse 64 11/08/25 08:06 Resp 18 11/08/25 03:48 BP 152/69 H 11/08/25 08:06 Pulse Ox 95 11/08/25 09:22 O2 Del Method Nasal Cannula 11/08/25 09:22 O2 Flow Rate 2 11/08/25 09:22 Internal Medicine - PN: Obj Da Labs Labs: Laboratory Results - last 24 hr 11/07/25 11/07/25 11/07/25 07:55 11:28 16:06 WBC RBC Hgb Hct MCV MCH MCHC RDW Plt Count MPV Neut % (Auto) Lymph % (Auto) [place] % (Auto) Eos % (Auto) Baso % (Auto) Neut # (Auto) Lymph # (Auto) [place] # (Auto) Eos # (Auto) Baso # (Auto) Abs Immat Gran (auto) Imm/Tot Granulo (auto) Sodium Potassium Chloride Carbon Dioxide Anion Gap BUN Creatinine Est GFR ( Amer) Est GFR (Non-Af Amer) BUN/Creatinine Ratio Glucose Estimat Average Glucose 192 Hemoglobin A1c 8.3 H Calcium Total Bilirubin AST ALT Alkaline Phosphatase Total Protein Albumin Globulin Albumin/Globulin Ratio Triglycerides Cholesterol LDL Cholesterol, Calc VLDL Cholesterol HDL Cholesterol Cholesterol/HDL Ratio POC Glucose 459 H 408 H 11/07/25 11/08/25 11/08/25 21:07 05:09 08:18 WBC 14.4 H RBC 2.88 L Hgb 8.2 L Hct 25.6 L MCV 88.9 MCH 28.5 MCHC 32.0 RDW 14.2 Plt Count 201 MPV 11.1 Neut % (Auto) 82.7 H Lymph % (Auto) 8.5 L [place] % (Auto) 8.2 Eos % (Auto) 0.0 L Baso % (Auto) 0.1 L Neut # (Auto) 11.9 H Lymph # (Auto) 1.2 [place] # (Auto) 1.2 H Eos # (Auto) 0.0 Baso # (Auto) 0.0 Abs Immat Gran (auto) 0.07 H Imm/Tot Granulo (auto) 0.5 Sodium 133 L Potassium 4.4 Chloride 101 Carbon Dioxide 27.1 Anion Gap 9.3 BUN 48.0 H Creatinine 1.10 H Est GFR ( Amer) 59 L Est GFR (Non-Af Amer) 49 L BUN/Creatinine Ratio 43.6 Glucose 326 H Estimat Average Glucose Hemoglobin A1c Calcium 9.1 Total Bilirubin 0.5 AST 12 L ALT 17 Alkaline Phosphatase 70 Total Protein 6.5 Albumin 2.9 L Globulin 3.6 Albumin/Globulin Ratio 0.8 Triglycerides 101 Cholesterol 158 LDL Cholesterol, Calc 89.8 VLDL Cholesterol 20.2 HDL Cholesterol 48 Cholesterol/HDL Ratio 3.3 POC Glucose 383 H 327 H
[2025-11-08] MEDS: INSULIN GLARGINE 300 UNIT/3 ML INSULN.PEN 15 UNIT SQ (09:50)
[2025-11-08] MEDS: DAPAGLIFLOZIN 5 MG TABLET 10 MG PO (09:56)
--- NOTE | 2025-11-08 12:06 | CM.NOTE ---
Rounds made with Dr. Farias, discussed plan of care with pt. Possible discharge tomorrow. Pt to have walk study prior to discharge. Continue treatment as ordered.
[2025-11-08] MEDS: FLU VACC TS2025-26(65YR UP)/PF 180 MCG/0.5 ML SYRINGE IM (12:14)
[2025-11-08] MEDS: INSULIN GLARGINE 300 UNIT/3 ML INSULN.PEN 50 UNIT SQ (22:01)
[2025-11-09] VITALS (14 sets, daily range): BP systolic 109–131; BP diastolic 60–66; PULSE 56–62; TEMP 36.7–37; O2SAT 90–96
[2025-11-09] MEDS: HYDRALAZINE HCL 50 MG TABLET PO ×2 (05:04→13:51)
--- NOTE | 2025-11-09 07:38 | PC.NURSE ---
pt shantell reads 114
[2025-11-09] MEDS: AMLODIPINE BESYLATE 5 MG TABLET 10 MG PO (08:23)
[2025-11-09] MEDS: FUROSEMIDE 40 MG/4 ML VIAL IVP (08:23)
[2025-11-09] MEDS: CETIRIZINE HCL 10 MG TABLET PO (08:24)
[2025-11-09] MEDS: DAPAGLIFLOZIN 5 MG TABLET 10 MG PO (08:24)
[2025-11-09] MEDS: LISINOPRIL 20 MG TABLET 40 MG PO (08:24)
[2025-11-09] MEDS: CITALOPRAM HYDROBROMIDE 20 MG TABLET PO (08:24)
[2025-11-09] MEDS: APIXABAN 5 MG TABLET PO (08:24)
[2025-11-09] MEDS: ATORVASTATIN CALCIUM 40 MG TABLET 80 MG PO (08:24)
[2025-11-09] MEDS: FERROUS SULFATE 325 MG TABLET PO (08:24)
[2025-11-09] MEDS: GABAPENTIN 300 MG CAPSULE PO (08:24)
[2025-11-09] MEDS: POTASSIUM CHLORIDE 10 MEQ ER TABLET 20 MEQ PO (08:24)
[2025-11-09] MEDS: CARVEDILOL 25 MG TABLET PO (08:50)
--- NOTE | 2025-11-09 10:55 | CM.NOTE ---
Rounds made with Dr. Segovia, pt will discharge to home today. Cancel cardiology consult and move up pt's outpatient appointment for cardiology. No other discharge needs identified.
[2025-11-09] MEDS: INSULIN ASPART 300 UNIT/3 ML PEN SUBQ (12:10)
[2025-11-09 12:14] LABS: Anion Gap 14.1; Blood Urea Nitrogen 61.0 mg/dL (7.0-18.0); Calcium 9.1 mg/dL (8.5-10.1); Carbon Dioxide 28.2 mmol/L (21.0-32.0); Chloride 102 mmol/L (98-107); Estimated GFR (African America 52 (>=60 mL/min/1.73m^2); Estimated GFR (Non-African Ame 43 (>=60 mL/min/1.73m^2); Glucose 170 mg/dL (74-106); Potassium 4.3 mmol/L (3.5-5.1); Sodium 140 mmol/L (136-145)
--- NOTE | 2025-11-09 13:20 | P.DS_ITS ---
DS: Providers Provider Date of admission: 11/07/25 03:14 Primary care physician: CHAMP CHRISTENSEN Consults: 11/07/25 02:58 Consult to Cardiology Routine Reason for consultation: CHF Has provider been notified: No 11/07/25 05:17 Consult to Cardiology Routine Reason for consultation: CHF DS: Diagnosis Discharge Diagnosis (1) Pulmonary edema with congestive heart failure: (2) COPD (chronic obstructive pulmonary disease): (3) Diabetes: (4) Hypertensive emergency: Plan Acute hypoxic respiratory failure secondary to acute on chronic diastolic CHF exacerbation DS: Summary Hospital Course Hospital Course: Diann Patel is a 70 y/o F, h/o CHF and COPD, uses O2 at night, presented to [facility] emergency room from home due to shortness of breath, found to be hypoxic with troponin elevation and BNP elevation prompting request for medical admission. During hospital course, patient was provided with oxygen supplements, she was started on IV Lasix with quicker improvement than expected. Echocardiogram was done which showed diastolic dysfunction, normal EF and LV function. Blood pressure goal adjusted with remarkable improvement in her blood pressure readings while here. As of today, patient remained hemodynamically stable, walk study was done and patient did not qualify for oxygen, she appears very comfortable and would like to go home as it is New year ignacio. Will transition to oral diuretics, adjusted her blood pressure medications, increased her hydralazine and added Imdur to help with CHF management. Patient has appointment with her tunnel elastic operator zigzag in November. advised to follow-up with. Her PCP and tunnel elastic operator zigzag closely. Instructed regarding water and salt intake. Discussed with patient at bedside, all question answered, patient in agreement and comfortable with discharge plan at this time. Time Spent with Patient Time attestation: Total time spent providing and/or coordinating discharge services: Time spent: greater than 30 minutes Exam Narrative Exam Narrative: Const General: cooperative HEENT Normal oropharyngeal mucosa without any ulcers or exudates Eyes: Conjunctiva normal Pulmonary Auscultation: clear to auscultation , no crackles, no wheezes Cardiovascular Rate: normal rate Rhythm: regular rhythm Heart Sounds: S1 normal, S2 normal and no murmurs GI Inspection: non-distended Palpation: soft, not firm and nontender. No rigidity or rebound. Deferred Neuro General: alert, awake and oriented x3. No obvious new focal deficit Musculoskeletal: normal range of motion Extrem General: no cyanosis, no pedal edema Psych Appearance: appropriate affect. Grossly normal Constitutional Vital Signs, click to edit/add: Last Vital Signs Temp 98.1 F 11/09/25 12:07 Pulse 62 11/09/25 12:07 Resp 18 11/09/25 07:39 BP 127/63 11/09/25 12:07 Pulse Ox 92 L 11/09/25 12:07 O2 Del Method Room Air 11/09/25 12:07 O2 Flow Rate 2 11/09/25 07:39 DS: Data Data Completed and Pending Labs on day of discharge: Labs from last 24 hours 11/09/25 11/08/25 11:50 15:56 Sodium 140 Potassium 4.3 Chloride 102 Carbon Dioxide 28.2 Anion Gap 14.1 BUN 61.0 H Creatinine 1.24 H Est GFR ( Amer) 52 L Est GFR (Non-Af Amer) 43 L BUN/Creatinine Ratio 49.2 Glucose 170 H Calcium 9.1 POC Glucose 218 H Preliminary micro results at discharge 11/07/25 02:00 Blood Culture Result 2 - Preliminary Blood - Left Hand NO GROWTH AT 2 DAYS. 11/07/25 01:55 Blood Culture Result 1 - Preliminary Blood - Left Antecubital NO GROWTH AT 2 DAYS. Discharge Plan Discharge Disposition: Home, Self-Care Condition: Good Discharge Medications: New hydralazine 50 mg Tablet 50 mg PO TID Qty: 90 0RF isosorbide mononitrate 30 mg tablet extended release 24 hr 30 mg PO DAILY Qty: 30 0RF Continued Eliquis 5 mg tablet 5 mg PO BID lisinopril 20 mg tablet 20 mg PO DAILY atorvastatin 80 mg tablet 80 mg PO DAILY citalopram 20 mg tablet 20 mg PO DAILY Novolin R Regular U100 Insulin 100 unit/mL solution 22 unit subcut AC Patient Comments: TID before meals Rx Instructions: sliding scale gabapentin 300 mg capsule 300 mg PO BID potassium chloride [Klor-Con M20] 20 mEq tablet,ER particles/crystals 20 meq PO DAILY furosemide 40 mg tablet 40 mg PO Q12H carvedilol 25 mg tablet 25 mg PO Q12H Allergy Relief (loratadine) 10 mg capsule 10 mg PO DAILY amlodipine 10 mg tablet 10 mg PO .QD insulin glargine [Lantus Solostar U-100 Insulin] 100 unit/mL (3 mL) insulin pen 50 unit SUBCUT .QHS ferrous sulfate [Neftaly-Time] 325 mg (65 mg iron) tablet 325 mg PO .every other day Patient Comments: take one tab every other day ondansetron 4 mg tablet,disintegrating 4 mg PO TID PRN (Reason: nausea and vomiting) methocarbamol 500 mg tablet 500 mg PO Q8H PRN (Reason: pain) Qty: 20 0RF Discontinued hydralazine 25 mg tablet 50 mg PO Q12H Activity: increase activity as tolerated Diet: advance to your usual diet Print Language: Romansh Patient Instructions: Isosorbide Mononitrate (By mouth), Heart Failure (DC) Forms: Portal Instructions Follow Up Appointments: Dr. Ray Amleida. 11/15/25 @ 10:30am [phone] [facility] - 11/23 @ 2:20pm [phone] Discharge Date/Time: 11/09/25 15:06
--- NOTE | 2025-11-11 14:38 | CM.DCFOLLOWU ---
1st attempt, no answer, 11/11
--- OUTSIDE RECORDS SUMMARY | 2025-11-11 15:10 | XMS_ITS | Clinical Summary ---
Author Organization [facility] Address [address] [place], [place] [id number] Care Team Providers Care Order Desk Clerk Name Role Phone Charlene Mckinley MD Unavailable [phone] Social History Tobacco UseTypesPacks/DayYears UsedDateSmoking Tobacco: Never Assessed CommentsUnknownSex and Gender InformationValueDate RecordedSex Assigned at Not on fileLegal SebVananr64/30/2025 9:19 AM EDTGender IdentityNot on fileSexual OrientationNot on file Plan of Treatment Not on file Insurance Care Teams Team MemberRelationshipSpecialtyStart DateEnd Date Charlene Mckinley MD [address] [place] [address] [place] [address] ReferringGastroenterology05/09/25
--- OUTSIDE RECORDS SUMMARY | 2025-11-11 15:10 | XMS_ITS | Encounter Summary ---
Author Organization [facility] Address [address] [place] [address] Care Team Providers Care Financial Aid Coordinator Name Role Phone Nik Bell MD Primary Care Provider [phone] Nik Bell MD Unavailable [phone] Lesa Browne LPN Unavailable Encounter Details DateTypeDepartmentCare Team (Latest Contact Info)Xtdodlliouu15/29/2025linisync Result Encounter [facility] External Department Unsolicited Provider, Generic External Data Social History Tobacco UseTypesPacks/DayYears UsedDateSmoking Tobacco: FormerCigarettes Smokeless Tobacco: NeverAlcohol UseStandard Drinks/WeekCommentsNever0 (1 standard drink = 0.6 oz pure alcohol)B1300 Health LiteracyAnswerDate RecordedHow often do you need to have someone help you when you read instructions, pamphlets, or other written material from your doctor or pharmacy?Rarely 11/24/2024PHQ-2AnswerDate RecordedPatient Health Questionnaire-2 Score1 10/18/2025CommentsUnknownSex and Gender InformationValueDate RecordedSex Assigned at BirthNot on fileLegal OwwWgdfow79/15/2023 6:45 PM EDTGender Identity Not on fileSexual OrientationNot on filedocumented as of this encounter Plan of Treatment DateTypeDepartmentCare Team (Latest Contact Info)Ykkhjoopxss26/06/2026 10:30 AM ESTOffice Visit [facility] [place] [facility] [address] [place] [address] Johnna Guerrero, OSORIO [address] [place], [place] [phone] 11/17/2025 2:00 PM ESTOffice Visit [facility] [address] [place] [address] Alexis Carranza, DPM [address] [facility] [address] [place] [address] 12/01/2025 3:40 PM ESTOffice Visit [facility] [address] [place] [address] Alexis Carranza, DPM [address] [facility] [address] [place] [address] 01/09/2026 1:15 PM ESTOffice Visit [facility] [address] [place] [phone] Elton Garcia, DO [address] [place] [address] 01/19/2026 1:00 PM EDTOffice Visit [facility] [address] [place] [address] Johnna Guerrero, [employer] [address] [place] [address] NameTypePriorityAssociated DiagnosesDate/TimeBLOOD CULTURE 2JwgXxtseps36/29/2025 1:55 AM ESTBLOOD CULTURE 8TieRpdtmao87/29/2025 2:00 AM ESTdocumented as of this encounter Procedures Procedure NamePriorityDate/TimeAssociated DiagnosisCommentsBLOOD CULTURE 2 Wsxftmz5811/07/2025 2:00 AM ESTBLOOD CULTURE 3Yzotcbe56/29/2025 1:55 AM EST documented in this encounter Visit Diagnoses Not on filedocumented in this encounter Additional Health Concerns AssessmentNoted TimePHQ-9 Depression Total Score: 1:00 PM EDT documented as of this encounter Care Teams Team MemberRelationshipSpecialtyStart DateEnd Date Nik Bell MD [address] [facility] [address] [place] [address] PCP - GeneralInternal Medicine03/18/23 Nik Bell MD [address] [facility] [address] [place] [address] PCP - ACO Reach01/09/24 Lesa Browne LPN [address] [facility] [address] [place] [address] 02/01/25documented as of this encounter
--- OUTSIDE RECORDS SUMMARY | 2025-11-11 15:10 | XMS_ITS | Clinical Summary ---
Author Organization [facility] Address [address] [place] [address] Care Team Providers Care Tire Trimmer Hand Name Role Phone Nik Bell MD Primary Care Provider [phone] Nik Bell MD Unavailable [phone] Lesa Browne LPN Unavailable Allergies Active AllergyReactionsCriticalityNoted DateCommentsPenicillinsHives,Unknown 10/28/2014 childhood-swelling Medications MedicationSigDispense QuantityRefillsLast FilledStart DateEnd DateStatus insulin pen needle (B-D ULTRAFINE III SHORT PEN) 31G X 8 mm misc Indications:Type 2 diabetes mellitus with hyperglycemia, with long-term current use of insulin (HCC)USE DIRECTED EVERY DAY WITH BASAGLAR 100 each ctive Continuous Glucose Evidence Custodian (Dexcom G7 Evidence Custodian) device Indications:Type 2 diabetes mellitus with hyperglycemia, [...] GRAMS TO ABDOMINAL WALL FOUR TIMES DAILY ZZKWFD3902/16/2025tive hydrALAZINE (Apresoline) 100 MG tablet 5Active dabigatran etexilate (Pradaxa) 150 MG capsule Take 150 mg by mouth in the morning and 150 mg before bedtime. Do not crush or chew.Active methocarbamol (Robaxin) 500 MG tablet Take 500 mg by mouth every 8 (eight) hours if wxizbx9205/03/2025tive citalopram (CeleXA) 20 MG tablet Indications:Generalized anxiety disorderTake 1 tablet (20 mg) by mouth Daily 100 tablet tive Continuous Glucose Sensor (Dexcom G7 Sensor) [facility] [place]ications:Type 2 diabetes mellitus with hyperglycemia, with long-term current use of insulin ([facility])1 Device by In Vitro route every 14 [...] complication, unspecified asthma severity, unspecified whether persistent ([facility])Take 1 tablet (325 mg) by mouth every other day 50 tablet 10/18/2025tive furosemide (Lasix) 40 MG tablet Indications:Edema, unspecified typeTake 1 tablet (40 mg) by mouth in the morning and 1 tablet (40 mg) before bedtime. 180 tablet ctive insulin glargine (Lantus) 100 UNIT/ML pen Indications:Type 2 diabetes mellitus with hyperglycemia, with long-term current use of insulin ([facility])Inject 50 Units under the skin at bedtime 45 mL ctive loratadine (Claritin) 10 MG tablet Indications:Allergy, sequelaTake 1 tablet (10 mg) by mouth Daily 90 tablet 6Active insulin regular (NovoLIN R) 100 UNIT/ML injection Indications:Type 2 diabetes mellitus with hyperglycemia, with long-term current use of insulin ([facility])Inject 0.22 mL (22 Units) under the skin [...] Indications:Polyneuropathy due to type 2 diabetes mellitus ([facility])Take 1 capsule (300 mg) by mouth in the morning and 1 capsule (300 mg) before bedtime. 180 capsule ctive Insulin Syringe 31G X 5/16 1 ML misc Indications:Type 2 diabetes mellitus with hyperglycemia, with long-term current use of insulin ([facility])Inject 1 Syringe as directed in the morning and 1 Syringe before bedtime. 200 each tive Insulin Syringe 31G X 5/16 1 ML misc Indications:Type 2 diabetes mellitus with hyperglycemia, with long-term current use of insulin ([facility])USE DIRECTED TO ADMINISTER INSULIN TWICE DAILY 200 each Discontinued(Reorder) gabapentin (Neurontin) 300 MG capsule Indications:Polyneuropathy due to type 2 diabetes mellitus ([facility])Take 1 capsule (300 mg) by mouth in the morning and 1 capsule (300 mg) before bedtime. 180 capsule Discontinued(Reorder) citalopram (CeleXA) 20 MG tablet Indications:Generalized anxiety disorderTake 1 tablet (20 mg) by mouth Daily 100 tablet Discontinued(Reorder) furosemide (Lasix) 40 MG tablet Indications:Edema, unspecified typeTAKE 1 TABLET BY MOUTH EVERY DAY 90 tablet Discontinued(Reorder) Continuous Glucose Sensor (Dexcom G7 Sensor) [facility] [place] Indications:Type 2 diabetes mellitus with hyperglycemia, with [...] DateDiagnosed DateVH (vitreous hemorrhage), right07/12/2025History of colon apgocc2405/25/2025Upper abdominal pain05/25/2025Iron deficiency anemia 05/25/2025Screening for colon svkdqr6405/25/2025hronic tincpfyudggouua34/16/2025 Cardiovascular kfhnakd0604/26/2025HTN (hypertension)04/26/2025arotid stenosis 03/28/2025 Overview (03/28/2025): Problem List clean-up per request of Phys. EHR Cmte PCO (posterior capsular opacification), zzpsqrnoz78/19/5796Qopjbddh37/19/2025 Acute kdlxzm4802/18/2025New onset of congestive heart sibtcsd2802/18/2025NSTEMI (non-ST elevated myocardial infarction)02/18/2025Epiretinal membrane (ERM) of both eyes02/15/2025Dry eyes02/15/20252880Blyjhnfonphc51/15/2024Diabetes mellitus 05/10/2024 Overview (09/22/2024): type 2 S/P CABG x 4Acute asthmatic mxrfcikarc86/15/2023cute combined systolic and diastolic heart yksxnmk6706/24/20232831Nhsgxkqpjrfhudtwz59/15/2023hronic ulcer of left foot with fat layer yvxgddo9506/24/2023iabetic foot ulcer06/24/2023 Dry wkiebrqx55/15/2023therosclerosis of [place] coronary artery of [place] heart with angina pectoris with documented spasm06/04/2023enign essential mksqocqgdgxd40/26/2023eneralized anxiety bvnjdjqo23/26/2023History of ahyqlzcvkabf72/26/2023IBS (irritable bowel syndrome)06/04/2023Mixed /26/2023aroxysmal atrial ecqwxayfhmlq38/26/2023eripheral vascular wtmmsyw5606/04/2023olyneuropathy due to type 2 diabetes mellitus 06/04/2023oorly controlled diabetes eurjuttp91/26/2023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 associated with type 2 diabetes hesfheqc56/26/2023Type 2 diabetes mellitus with uhmglgftaisab05/26/2023 Iyizacwhms52/26/2023roliferative diabetic retinopathy associated with type 2 diabetes qtwotwfh58/17/2021ortic stenosis, qafyxe8409/01/2019Asthma without status jrvpudhofqh15/05/2018Estrogen bamahowddx57/15/2017Atrophic gastritis 10/23/20159555Trbnlisyri21/14/2013Dehiscence of operative wound04/15/2013 Overview (06/24/2023): WOUND CLOSURED 06/22/13 Staphylococcal infectious dsujfkn3503/17/2013Infection of bone03/02/2013Mechanical complication of internal orthopedic device, implant or graft02/23/2013 Overview (06/24/2023): DELAY WOUND HEALING Orhywtcvyaiqi05/11/2013 Overview (06/24/2023): STERNUM S/P DEBRIDEMENT AND FLAP COVERAGE 02/08/13 Arteriosclerosis of arterial coronary artery bypass graft01/05/2013Chest pain 12/29/2012Diverticulosis of colon03/29/20108330Xwgtazdu41/20/2010Pain in soft tissues of limb03/29/2010 Resolved Problems ProblemNoted DateDiagnosed DateResolved DateVitreous hemorrhage of right eye /ataract mature, total vesszv93/06/2025Type 2 diabetes mellitus without jeqacjcdwtbja41 Encounters DateTypeDepartmentCare VegxCiniwroqgyj30/29/2025linisync Result Encounter [facility] External Department Unsolicited Provider, Generic External Data 10/25/2025[facility] [address] [place] [address] Nik Bell MD Type 2 diabetes mellitus with hyperglycemia, with long-term current use of insulin ([facility])10/18/2025 11:00 AM ESTOffice Visit [facility] Sheeba Marie [address] [place] [address] Johnna Guerrero NP Gastroesophageal reflux disease without esophagitis (Primary Dx); Type 2 diabetes mellitus with stage 3 chronic kidney disease, with long-term current use of insulin, unspecified whether stage 3a or 3b CKD ([facility]); Generalized anxiety disorder; Type 2 diabetes mellitus with hyperglycemia, with long-term current use of insulin ([facility]); Irritable bowel syndrome with both constipation and diarrhea; Asthma without status asthmaticus without complication, unspecified asthma severity, unspecified whether persistent ([facility]); Edema, unspecified type; Benign essential hypertension; Polyneuropathy due to type 2 diabetes mellitus ([facility]); Allergy, bncttus9310/18/2025amb [facility] [address] [facility] [address] [place] [address] Johnna Guerrero, OSORIO 10/18/20255864Fxvwfu89/14/2025Patient Outreach [facility] [address] [place] [address] Lesa Browne LPN 09/20/2025 10:30 AM ESTOffice Visit [facility] [address] [facility] [address] [place] [address] Johnna Guerrero, OSORIO Acute non-recurrent pansinusitis (Primary Dx)09/20/2025 flowsheet [facility] [address] [facility] [address] [place] [address] Johnna Guerrero NP 09/20/20255452Bpilho66/06/2025 3:20 PM ESTOffice Visit [facility] [address] [facility] [address] [place] [address] Alexis Carranza DPM Achilles tendinitis, right leg (Primary Dx); Contracture of right ankle; Type 2 diabetes mellitus with hyperglycemia, with long-term current use of insulin ([facility]); Pain due to onychomycosis of toenails of both feet09/15/2025amb flowsheet [facility] [address] [facility] [address] [place] [address] Alexis Carranza DPM 09/15/20259633Acldjm95/17/2025Patient Outreach [facility] [address] [place] [address] Lesa Browne LPN 08/24/2025 11:30 AM EDTOffice Visit NOMS [address] [place] [phone] Johnna Guerrero NP Abnormal breast exam (Primary Dx); Encounter for screening mammogram for malignant neoplasm of breast; Type 2 diabetes mellitus with diabetic chronic kidney disease (HCC); Chronic kidney disease, stage 3b (CMS-HCC); Acute non-recurrent fkmsyxfxsdbv98/15/2025amboo flowsheet [facility] [address] [facility] [address] [place] [address] Johnna Guerrero NP 08/24/20255188Ohhlhj84/14/2025Refill [address] [place] [address] Johnna Guerrero, OSORIO Benign essential hypertensionfrom Last 3 Months Immunizations ImmunizationAdministration DatesNext DueInfluenza, High Dose Seasonal, Preservative Free08/28/2022,10/05/2020,08/10/2019Influenza, High-dose Seasonal, Quadrivalent, Preservative Free09/30/2024,08/28/2022Influenza, Seasonal, Quadrivalent, Uuzvzrkszo26/27/2021Influenza, injectable, quadrivalent, preservative free10/06/2020,09/25/2016,10/27/2014Influenza, seasonal, intradermal, preservative free08/25/2018,09/24/2017,10/02/2015Pneumococcal Polysaccharide LGTP345612/06/2019,09/25/2016Tdap04/01/2024 Family History Medical HistoryRelationNameCommentsDiabetesOtherHypertensionOtherRelationName StatusCommentsFatherDeceasedMotherDeceasedOther Social History Tobacco UseTypesPacks/DayYears UsedDateSmoking Tobacco: FormerCigarettes Smokeless Tobacco: Never Tobacco Cessation:Counseling Given: Yes Alcohol UseStandard Drinks/WeekCommentsNever0 (1 standard drink = 0.6 oz pure alcohol)B1300 Health LiteracyAnswerDate RecordedHow often do you need to have someone help you when you read instructions, pamphlets, or other written material from your doctor or pharmacy?Mdnpjl3711/24/2024PHQ-2AnswerDate Recorded Patient Health Questionnaire-2 Ligzr368CommentsUnknownSex and Gender InformationValueDate RecordedSex Assigned at BirthNot on fileLegal Sex Tmrsgb9101/22/2023 6:45 PM EDTGender IdentityNot on fileSexual OrientationNot on file Last Filed Vital Signs Vital SignReadingTime TakenCommentsBlood Tcwjwwni315/7210/18/2025 10:46 AM EST Ltqfl534410/18/2025 10:46 AM QEVEtaisjwyffq71.6 ??C (97.8 ??F)08/24/2025 11:13 AM EDTRespiratory Adfe612612/19/2024 10:46 AM ESTOxygen Uplesklbcc79%10/18/2025 10:46 AM ESTInhaled Oxygen Concentration--Fhxzta53.7 kg (178 lb)10/18/2025 10:46 AM KBLDnhiuv602.5 cm (5' 2.4 )10/18/2025 10:46 AM ESTBody Mass Index32.14112/19/2024 10:46 AM EST Plan of Treatment DateTypeDepartmentCare Team (Latest Contact Info)Wxspwohtkap03/06/2026 10:30 AM ESTOffice Visit [facility] [address] [facility] 110 [place] [phone] Johnna Guerrero, IRRIGATION WORKER [address] [facility] [address] [place] [address] 11/17/2025 2:00 PM ESTOffice Visit [facility] [address] [facility] 120 [place] [address] Alexis Carranza DPM [address] [facility] 5 [place] [address] 12/01/2025 3:40 PM ESTOffice Visit [facility] [address] [facility] [address] [place] [phone] Alexis Carranza, DPM [address] [facility] 5 [place] [address] 01/09/2026 1:15 PM ESTOffice Visit [facility] [address] [place] [address] Elton Garcia, DO [address] [place] [address] 01/19/2026 1:00 PM EDTOffice Visit [facility] [address] [facility] 110 [place] [phone] Johnna Guerrero, IRRIGATION WORKER [address] [facility] 110 [place] [address] Health MaintenanceDue DateLast DoneCommentsPneumococcal Vaccine: 65+ Years (2 of 2 - PCV), 09/25/2016Influenza Vaccine (#1)2025 09/30/2024, 08/28/2022, 08/28/2022, Additional history existsDiabetes: Hemoglobin A1C03/612/07/2025, 07/20/2025, 04/14/2025, Additional history yjufjoNgomtkagd52/24/757087/, 08/23/2020, 01/18/2019, Additional history existsDiabetes: Retinopathy Yrrhctwjz71/12/2024, 07/12/2025, 07/12/2025, Additional history existsDiabetes: Urine Protein Urvejtlqw40/10/2026 07/20/2025, 02/12/2024, 01/18/2020, Additional history existsFOBTDiscontinued 02/20/2025, 6874PulctburmalLrzvigjwdqbi96/31/2025, 07/12/2021, 07/12/2021, Additional history existsColorectal Cancer ScreeningDiscontinuedCT Colonography DiscontinuedFIT-DNADiscontinuedFITDiscontinuedSigmoidoscopyDiscontinued Procedures Procedure NamePriorityDate/TimeAssociated DiagnosisCommentsBLOOD CULTURE 2 Vibkwuh2311/07/2025 2:00 AM ESTBLOOD CULTURE 9Gjusxyh67/29/2025 1:55 AM ESTPOCT GLYCOSYLATED HEMOGLOBIN (HGB A1C)Mrlfptd9810/18/2025 10:53 AM EST Type 2 diabetes mellitus with stage 3 chronic kidney disease, with long-term current use of insulin, unspecified whether stage 3a or 3b CKD (HCC) MICROALBUMIN / CREATININE URINE ACNYZYbtwjng43/10/2025 11:04 AM EDT Poorly controlled diabetes mellitus (HCC) MM TOMOSYNTHESIS SCREENING BI03/03/2025 4:34 PM EDT DIABETIC RETINOPATHY SCREENING - OU - BOTH RCQOJissnug75/26/2025 OCC BLD IMMUNO KOOPKWVldfbwg31/27/2022 VXNAHJPHSYOGeknles42/02/2021 12:00 PM EDT from Last 3 Months or Most Recently Relevant to Health Maintenance Results * (ABNORMAL) POCT glycosylated hemoglobin (Hb A1C) docked device (10/18/2025 10:53 AM EST)ComponentValueRef RangeTest MethodAnalysis TimePerformed At Pathologist SignatureHemoglobin A1C8.2Specimen (Source)Anatomical Location / LateralityCollection Method / VolumeCollection TimeReceived TimeBloodVenous blood specimen / Fscadoj4410/18/2025 10:53 AM EST Narrative Authorizing ProviderResult TypeResult StatusJohnna Guerrero NPPOINT OF CARE TEST ENTER/EDIT ORDERABLESFinal Result * Microalbumin / creatinine, urine ratio (07/20/2025 11:04 AM EDT)ComponentValue Ref RangeTest MethodAnalysis TimePerformed AtPathologist SignatureCREATININE, RANDOM QIVUS3195 - 275 mg/dLQUESTALBUMIN, URINE0.4See Note: mg/dLQUESTComment: Reference [...] specimen obtained by clean catch procedure / Qotflpm6807/20/2025 11:04 AM EDT07/20/2025 11:04 AM EDT Narrative [facility] - 07/21/2025 10:49 AM EDT FASTING:YES FASTING: YES Resulting Agency Comment Performing Organization Information ?Site ID: QPT ?Name: [facility] ?Address: [address] [place] [address], [address] [place] [phone] ?Director: Jensen Johnson MD Authorizing ProviderResult TypeResult StatusJohnna Guerrero NPLAB URINE ORDERABLESFinal ResultPerforming OrganizationAddressCity/[facility]/ZIP CodePhone Number [facility] * MM TOMOSYNTHESIS SCREENING BI (03/03/2025 4:34 PM EDT)Anatomical Region LateralityModalityOtherSpecimen (Source)Anatomical Location / Laterality Collection Method / VolumeCollection TimeReceived Time03/03/2025 4:34 PM EDT Narrative 03/03/2025 4:35 PM EDT [facility] ?[address] ? [place] [address] ? Mammography Report ? Signed ? Patient: REXROTH,DIANN L ?MR#: [id number] ?? : 1955 ?Acct:[id number] ?? Age/Sex: 69 / F ?ADM Date: 04/24/25 ?? Loc: MAMMO ? Attending Dr: NIK BELL ? Ordering Physician: NIK BELL ? Results: ? Date of Service: 03/03/25 ?Follow Up: ? Procedure(s): MM tomosynthesis screening BI ?? Accession Number(s): [id number] ? cc: FERMIN,NIK ? Patient Name: ? DIANN PATEL ? MR#: [id number] ? : 1955 ? Exam Date: 03/03/2025 [...] at age 49. ? LOCATION: ? [facility] ? BREAST COMPOSITION: ? There are scattered [...] ?Julio Cesar Erwin M.D. ? Signed By: ?03/03/255 ? DD/ 1634 ? TD/TT: ? Electronics Detail Draftsperson: Procedure Note Radiology, Radiologist, MD - 03/03/2025 [place] [address] Mammography Report Signed Patient: DIANN PATEL LMR#: [id number] : 1955cct:[id number] Age/Sex: 69 / FADM Date: 03/03/25 Loc: MAMMO Attending Dr: NIK BELL Ordering Physician: Eileen BELLults: Date of Service: 03/03/25Follow Up: Procedure(s): MM tomosynthesis screening BI Accession Number(s): [id number] cc: NIK BELL Patient Name: DIANN PATEL MR#: [id number] : 1955 Exam Date: 03/03/2025 Ordering Doctor: [...] withovarian cancer at age 49. LOCATION: [facility] BREAST COMPOSITION: There are scattered [...] M.D. Signed By:03/03/25 1635 DD/ 1634 TD/TT: Electronics Detail Draftsperson: Authorizing ProviderResult TypeResult StatusNik Bell MDCLINISYNC IMAGING Final Result * Diabetic Retinopathy Screening - OU - Both Eyes (01/05/2025)ComponentValueRef RangeTest MethodAnalysis TimePerformed AtPathologist SignatureRESULTSndr Anatomical RegionLateralityModalityHeadOtherSpecimen (Source)Anatomical Location / LateralityCollection Method / VolumeCollection TimeReceived Time 01/05/2025 Narrative Authorizing ProviderResult TypeResult StatusNik Bell MDOPHTH PHOTOGRAPHY Final Result * OCC BLD IMMUNO SCREEN (07/06/2022)ComponentValueRef RangeTest MethodAnalysis TimePerformed AtPathologist SignatureOCCULT BLOODNEGATIVENEGATIVENOMS LEGACY EXTERNAL LABPERFORMING LAB:see noteNOMS LEGACY EXTERNAL LABComment:[facility] - [facility] - [address] [address] ,Ext. [phone] specimen (Source)Anatomical Location / LateralityCollection Method / VolumeCollection TimeReceived Time 07/06/2022 Narrative Authorizing ProviderResult TypeResult StatusNik VICTORIAW LABSFinal ResultPerforming OrganizationAddressCity/State/ZIP CodePhone Number [facility] * Colonoscopy (07/12/2021 12:00 PM EDT)Anatomical RegionLateralityModality EndoscopySpecimen (Source)Anatomical Location / LateralityCollection Method / VolumeCollection TimeReceived Time07/12/2021 12:00 PM EDT Narrative 07/12/2021 12:00 PM EDT PERFORMED AT [facility] LOCATION:[id number] polyp, diverticulosis - repeat 5 yrs. Procedure Note CONVERSION, GENERIC - 03/26/2023 PERFORMED AT [facility] LOCATION:[id number] polyp, diverticulosis - repeat 5 yrs. Authorizing ProviderResult TypeResult StatusDanievelyne Bell MDENDOSCOPY PROCEDURE ORDERABLESFinal Result from Last 3 Months or Most Recently Relevant to Health Maintenance Insurance Care Teams Team MemberRelationshipSpecialtyStart DateEnd Nik Bell MD [address] [facility] [address] [place] [phone] PCP - GeneralInternal Medicine03/18/23 Nik Bell MD [address] [address] [facility] Re[facility]01/09/24 Lesa Browne LPN [address] [address] 02/01/25
--- OUTSIDE RECORDS SUMMARY | 2025-11-11 15:10 | XMS_ITS | Clinical Summary ---
Author Organization [facility] Address [address] [place] [address] Phone Care Team Providers Care Real Estate Office Supervisor Name Role Phone Unavailable Primary Care Provider Unavailabl e Allergies Active AllergyReactionsCriticalityNoted DateCommentsPenicillinsHives,Other, Hdcblxs1710/28/2014 childhood-swelling Medications MedicationSigDispense QuantityRefillsLast FilledStart DateEnd DateStatus [...] 5/16 needle USE DIRECTED EVERY DAY WITH QPYNOFFK65/18/2024ctive potassium chloride CR 20 mEq ER tablet [...] were you homeless or living in a nursing home (including now)?No06/22/2024CommentsNoSex and Gender InformationValueDate RecordedSex Assigned at BirthNot on fileLegal SexFemale 05/19/2024 1:22 PM EDTGender IdentityNot on fileSexual OrientationNot on file Last Filed Vital Signs Vital SignReadingTime TakenCommentsBlood Lwbznjaq447/8009 4:14 PM EDT Bhwxe9813 4:10 PM EUUSstkwfangfg35.6 ??C (97.9 ??F)06/22/2024 7:49 AM EDTRespiratory Klsa118007/20/2024 4:10 PM EDTOxygen Xpsuviwxfq82%06/22/2024 7:49 AM EDTInhaled Oxygen Concentration--Mskoqk70.5 kg (162 lb)07/20/2024 4:10 PM EDT Igtlbt516.5 cm (5' 2 )07/20/2024 4:10 PM EDTBody Mass Index29.63007/20/2024 4:10 PM EDT Plan of Treatment Health MaintenanceDue DateLast DoneCommentsCT Syjcokugcssi1954FIT-DNA (Cologuard)1955Lipid Panel1955Medicare Annual Wellness Visit (AWV) 1955 3764Nmblhuygwblob1954MMR Vaccines (1 of 1 - Standard series) 1956Hepatitis C Yywvqqrcp05/19/1972RSV High Risk: (Elderly (60+) or Population) (1 - Risk 50-74 years 1-dose series)2004Zoster Vaccines (1 of 2)06/28/20049510Hbbpjazid68, 08/23/2020Pneumococcal Vaccine (2 of 2 - PCV)/, 09/25/20162693Jeefwyxgpvhvup34/18/2022 03/27/2021one Density ScanFIT/2Creatinine Level/4Diabetes Ionrfvmwr08/04/2024, 12/05/2023, 12/04/2023, Additional history existsPotassium Level06/15//4COVID-19 Vaccine [...] topic Procedures Procedure NamePriorityDate/TimeAssociated DiagnosisCommentsRENAL FUNCTION PANEL Dfomuwj7706/15/2024 5:08 PM EDT PAD (peripheral artery disease) from Last 3 Months or Most Recently Relevant to Health Maintenance Results * (ABNORMAL) Renal function panel (06/15/2024 5:08 PM EDT)ComponentValueRef RangeTest MethodAnalysis TimePerformed AtPathologist QcruysihdPzrtmzg115(H)74 - 99 mg/dL LAB CHEMISTRY METHOD 06/15/2024 7:33 PM [facility] GXYNkmrfw715598 - 145 mmol/L LAB CHEMISTRY METHOD 06/15/2024 7:33 PM [facility] LABPotassium5.5(H)3.5 - 5.3 mmol/L LAB CHEMISTRY METHOD 06/15/2024 7:33 PM [facility] HNBUrtemmyp53543 - 107 mmol/L LAB CHEMISTRY METHOD 06/15/2024 7:33 PM [facility] WNFTlxjmzhlzji1419 - 32 mmol/L LAB CHEMISTRY METHOD 06/15/2024 7:33 PM EDT[facility] LABAnion Ubv2092 - 20 mmol/L LAB CHEMISTRY METHOD 06/15/2024 7:33 PM EDT[facility] LABUrea Tszbasyk68(H)6 - 23 mg/dL LAB CHEMISTRY METHOD 06/15/2024 7:33 PM ED[facility] LABCreatinine1.36(H)0.50 - 1.05 mg/dL LAB CHEMISTRY METHOD 06/15/2024 7:33 PM EDT[facility] TKFsFMS82(L)>60 mL/min/1.73m*2 LAB CHEMISTRY METHOD 06/15/2024 7:33 PM EDTUNC [facility] LABComment: Calculations of estimated GFR are performed using the 2020 CKD-EPI Study Refit equation without therace variable for the IDMS-Traceable creatinine methods. https://jasn.asnjournals.org/content/early//ASN.1546580646 Calcium9.88.6 - 10.6 mg/dL LAB CHEMISTRY METHOD 06/15/2024 7:33 PM [facility] LABPhosphorus4.12.5 - 4.9 mg/dL LAB CHEMISTRY METHOD 06/15/2024 7:33 PM [facility] LABComment:The performance characteristics of phosphorus testing in heparinized plasma have been validated by the individual laboratory site where testing is performed. Testing on heparinized plasma is not approved by the FDA; however, such approval is not necessary.Albumin4.73.4 - 5.0 g/dL LAB CHEMISTRY METHOD 06/15/2024 7:33 PM [facility] LABSpecimen (Source)Anatomical Location / Laterality Collection Method / VolumeCollection TimeReceived TimeBloodVenous blood specimen / UnknownVenipuncture / Ecmvlhw3106/15/2024 5:08 PM EDT06/15/2024 5:08 PM EDT Narrative Authorizing ProviderResult TypeResult StatusMississippi [facility] Center BLOOD ORDERABLESFinal ResultPerforming OrganizationAddressCity/State/ZIP CodePhone Number [facility] [address] [place] [address] from Last 3 Months or Most Recently Relevant to Health Maintenance Insurance [address] [place] [address] MemberSubscriberPlan / Payer (Effective 2022-Present)Name:Diann Patel Relation to Subscriber:SelfName:Diann Patel Payer ID:[id number] (NAIC) Group ID:[id number] Type:Not on file Address: [address] MemberSubscriberPlan / Payer (Effective 2022-Present)Name:Diann Patel Relation to Subscriber:SelfName:Diann Patel Payer ID:[id number] (NAIC) Group ID:[id number] Type:Not on file Address: [address] [place] [id number]
--- OUTSIDE RECORDS SUMMARY | 2025-11-11 15:11 | XMS_ITS | Clinical Summary ---
Author Organization [facility] Address [address] [place] [address], [address] [place] [address] Care Team Providers Care Assistant Professor Of Communication Name Role Phone Unavailable Primary Care Provider Unavailabl e Social History Tobacco UseTypesPacks/DayYears UsedDateSmoking Tobacco: Never Assessed CommentsUnknownSex and Gender InformationValueDate RecordedSex Assigned at Not on fileLegal BaxIenpbz22/28/2013 8:37 PM ESTGender IdentityNot on fileSexual OrientationNot on file Plan of Treatment Not on file
--- OUTSIDE RECORDS SUMMARY | 2025-11-11 15:11 | XMS_ITS | Clinical Summary ---
Author Organization [facility] Address [address] [place] [address] Care Team Providers Care Compliance Testing Analyst Name Role Phone Nik Bell MD Primary Care Provider [phone] Alexis Carranza DPM Unavailable [phone] Allergies Active AllergyReactionsCriticalityNoted ObqiVtptvelcAnyzkwiefgNacvr36/09/2022 PenicillinsHives,Zotsaxo6310/28/2014 childhood-swelling Medications MedicationSigDispense QuantityRefillsLast FilledStart DateEnd DateStatus [...] heart failure with preserved ejection fraction (HFpEF) (CMS/[facility])Inject 30 Units under the skin at [...] (paroxysmal atrial fibrillation) (CMS/HCC),Coronary artery disease involving [place] coronary artery of [place] heart without angina pectoris ,Mixed hyperlipidemiaTake 1 [...] tablet Discontinued(Dose adjustment) Active Problems ProblemNoted DateDiagnosed IzneRgnh45/05/2025hronic jqtqluqirspcnjz30/16/2025 History of colon dpqmye9305/25/2025Iron deficiency gohpeg1605/25/2025Screening for colon uztesy1305/25/2025Upper abdominal pain05/25/2025ardiovascular disease 04/26/2025HTN (hypertension)04/26/2025ortic stenosis, bgralf8904/26/2025arotid /19/2025 Overview (04/26/2025): Problem List clean-up per request of Phys. EHR Cmte PCO (posterior capsular opacification), ydrjxmdnr53/19/1511Ibmxvjut22/19/2025New onset of congestive heart osvymuk1002/18/2025 Assessment & Plan (02/21/2025 10:57 AM EDT): [...] HF. Concern that this decompensation is 2/2 [place]. - Sodium restricted diet - Lasix 40mg [...] SL nitroglycerin prn Coronary artery disease involving [place] heart02/18/2025 Assessment & Plan (02/21/2025 10:57 AM EDT): As above Assessment & Plan (02/20/2025 12:04 PM EDT): As above Assessment & Plan (02/19/2025 11:57 AM EDT): As above Assessment & Plan (02/18/2025 4:33 PM EDT): - Has been compliant on plavix/statin Acute ciamdy9802/18/2025 Assessment & Plan (02/21/2025 10:57 AM EDT): [...] eyes02/15/2025Epiretinal membrane (ERM) of both eyes02/15/2025Pseudophakia 08/24/2024iabetes zdsklqoe34/01/2024 Overview (05/10/2024): type 2 Strxrmxeiddrffztiiaw23/01/2024S/P CABG x Assessment & Plan (02/21/2025 10:57 AM EDT): - In 2012 Assessment & Plan (02/20/2025 12:04 PM EDT): - In 2012 Assessment & Plan (02/19/2025 11:57 AM EDT): - In 2012 Assessment & Plan (02/18/2025 4:33 PM EDT): - In 2012 Cataract mature, total aooeok4405/05/2024Vitreous hemorrhage of right eye 05/05/2024Numbness of left lower mvzqeyeco45/24/2024Acute asthmatic bronchitis 06/24/20236001Laxtafdilbckgocxj65/15/2023hronic ulcer of left foot with fat layer rqvnefk9106/24/2023iabetic foot ulcer06/24/2023ry pcrovmrh39/15/2023eneralized anxiety aioafcld68/26/2023History of apraiwuioywm43/26/2023IBS (irritable bowel syndrome)06/04/20233280Lfxcrdamxc73/26/2023olyneuropathy due to type 2 diabetes smjtbzic21/26/2023oorly controlled diabetes wkxvdxmi04/26/2023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 associated with type 2 diabetes lvfiblfg12/26/2023Type 2 diabetes mellitus with fasfapjqnznuf04/26/2023 Assessment & Plan (02/21/2025 10:57 AM EDT): [...] 20U tonight. Will be NPO Atherosclerosis of [place] coronary artery of [place] heart with angina pectoris with documented spasm06/04/2023enign essential kdrapvtqtrod63/26/2023eripheral vascular tjeoafz0506/04/2023Mixed /26/2023aroxysmal atrial euuppvefxtzq34/26/2023Nonrheumatic aortic valve zsjwkorv23/13/2022oronary artery disease involving [place] coronary artery of [place] heart with angina vzhuzzhn03/13/2022AF (paroxysmal atrial fibrillation)07/23/2022 Assessment & Plan (02/21/2025 [...] carvedilol 25mg BID. Rate controlled here Essential ewoqwjkiihkz26/13/2022 Assessment & Plan (02/21/2025 10:57 AM EDT): - Resume home medications Assessment & Plan (02/20/2025 12:04 PM EDT): - Resume home medications Assessment & Plan (02/19/2025 11:57 AM EDT): - Resume home medications Assessment & Plan (02/18/2025 4:33 PM EDT): - Resume home medications PAD (peripheral artery disease)2Proliferative diabetic retinopathy associated with type 2 diabetes gflwhbyr41/17/2021Asthma without status yaihmecukub45/05/2018Estrogen maxwjnihme20/15/2017Atrophic xtdlpvzso13/14/2015 Kvyixnmipt38/14/2013Dehiscence of operative wound04/15/2013 Overview (05/10/2024): WOUND CLOSURED 06/22/13 WOUND CLOSURED 06/22/13 Staphylococcal infectious vzgdipv4603/17/2013Infection of bone03/02/2013Mechanical complication of internal orthopedic device, implant or graft02/23/2013 Overview (12/20/2024): DELAY WOUND HEALING Fhnohlzgootqk27/11/2013 Overview (04/26/2025): STERNUM S/P DEBRIDEMENT AND FLAP COVERAGE 02/08/13 Arteriosclerosis of arterial coronary artery bypass graft01/05/2013 Overview (05/10/2024): CABG x4 in 2012, 2021 cath 3/4 are patent Chest pain12/29/2012Diverticulosis of colon03/29/20101722Sxcgvxba28/20/2010Pain in soft tissues of limb03/29/2010 Encounters DateTypeDepartmentCare ZfyhNzasdaayoua24/05/2025 2:15 PM ESTOffice Visit [facility] [address] [place] [address] Valente Chacon MD S/P TAVR (transcatheter aortic valve replacement) (Primary Dx); Bilateral carotid artery stenosis; Essential hypertension; PAF (paroxysmal atrial fibrillation) (CMS/HCC); PAD (peripheral artery disease); Coronary artery disease involving [place] coronary artery of [place] heart without angina pectoris; Mixed hyperlipidemia; History of coronary artery bypass thzvrby1409/26/2025Telephone [facility] [address] [place] [address] Sharmila Lee LPN from Last 3 Months Immunizations ImmunizationAdministration DatesNext DueInfluenza, High Dose Seasonal, Preservative Free10/05/2020,08/10/2019Influenza, High-dose Seasonal, Quadrivalent, Preservative Free09/30/2024,08/28/2022Influenza, Seasonal, Quadrivalent, Slwvhsagkl93/27/2021Influenza, injectable, quadrivalent, preservative free10/06/2020,09/25/2016,10/27/2014Influenza, seasonal,quadrivalent, preservative free08/25/2018,09/24/2017,10/02/2015 Pneumococcal Polysaccharide XNR168212/06/2019,09/25/2016Tdap04/01/2024 Family History Medical HistoryRelationNameCommentsAlcohol abuseBrotherDiabetesBrotherHeart diseaseFatherCancerMotherDiabetesMotherRelationNameStatusCommentsBrotherDeceased FatherDeceasedMotherDeceasedSisterDeceased Social History Tobacco UseTypesPacks/DayYears UsedDateSmoking Tobacco: FormerCigarettes Smokeless Tobacco: Never Tobacco Cessation:Counseling Given: Not Answered Alcohol UseStandard Drinks/WeekCommentsNever0 (1 standard drink = 0.6 oz pure alcohol)[facility] UtilitiesAnswerDate RecordedIn the past 12 months has the [employer], gas, oil, or water alive.cn threatened to shut off services in your [...] times a week12/03/2023How often do you attend religion or orthodoxy services?Never12/03/2023o you belong to any clubs or organizations such as religion groups, unions, fraternal or athletic groups, or school groups?No 12/03/2023How often do you attend meetings of the clubs or organizations you belong to?Never12/03/2023re you , , , , never , or living with a partner?Mxqpcow5412/03/2023UDIT-CAnswerDate RecordedQ1: How often do you have a [...] hard at all02/18/2025PHQ-2AnswerDate Recorded Patient Health Questionnaire-2 Ojikl244Finmount[facility] - Occupational Stress QuestionnaireAnswerDate RecordedDo you feel stress - tense, restless, nervous, or anxious, or unable to sleep at night because your mind is troubled all the time - these days?To some nmjifh6912/03/2023UT Safety & EnvironmentAnswerDate RecordedWithin the last year, [...] were you homeless or living in a intermediate (including now)?No02/18/2025Hunger Vital SignAnswerDate RecordedWithin the past 12 months, you worried that your food would run out before you got the money to buymore.Never true02/18/2025Ran Out of Food in the Last YearNot on file02/18/2025CommentsNoSex and Gender InformationValue Date RecordedSex Assigned at QfvfoTutnym53/11/2025 4:27 PM EDTLegal SexFemale 05/08/2022 10:16 PM EDTGender FbxmercoMmyoqq44/08/2022 8:33 AM ESTSexual OrientationHeterosexual or Dtjsuuze68/08/2022 8:33 AM EST Last Filed Vital Signs Vital SignReadingTime TakenCommentsBlood Axupdddq358/7810/14/2025 3:30 PM EST Fwrce564310/14/2025 3:30 PM GSGStbpssvnfig83 ??C (96.8 ??F)02/22/2025 12:29 PM EDT Respiratory Qqdv805702/22/2025 12:29 PM EDTOxygen Cbyplfvaua99%10/14/2025 2:42 PM ESTInhaled Oxygen Concentration--Pwltqn24.2 kg (179 lb)10/14/2025 2:42 PM EST Ofphyg063.5 cm (5' 2 )10/14/2025 2:42 PM ESTBody Mass Index32.7410/14/2025 2:42 PM EST Plan of Treatment DateTypeDepartmentCare Team (Latest Contact Info)Slfwlckjhzk52/14/2026 2:20 PM ESTOffice Visit [facility] [address] [place] [address] Britta Arzola, WOUND CARE COORDINATOR [address] [place] [address] Health MaintenanceDue DateLast DoneCommentsMedicare Annual Wellness (AWV) 4Diabetes: Retinopathy Fvewzissv26/19/1964Zoster Vaccines (1 of 2) 2004Pneumococcal Vaccine: 50+ Years (2 of 2 - PCV)/, 09/25/20163220Tortjnyhj38Diabetes: Hemoglobin A1C03/03/2024 12/03/2023, 06/29/2022OVID-19 Vaccine ( - season)2025Depression Vscoxpcca60/Fall Risk Hrlevkgon48Diabetes: Urine Protein Wvcfkgemy28/10/186247/08/2025, 02/12/2024dult Bmlbjep7204/01/2034 04/01/20242346VZGYZsagrfjdniec69/13/5941TsudqoqvlowDxvqfafvktjq16/31/2025, 07/12/2021, 07/12/2021olorectal Cancer ScreeningDiscontinuedInfluenza Vaccine Rnzmjxvkc35/30/2025, 09/30/2024, 08/28/2022, Additional history existsCT ColonographyDiscontinuedFIT-DNADiscontinuedFITDiscontinuedHIB VaccinesAged OutNo longer eligible based on [...] 09/17/2022 by [facility]acon [facility]Pro[facility] ValveN/A: HeartMEDTRONIC VYWBYEIQIYAG57/08/2024 EVOLUTFX-26 / [id number] / Stent,Viabahn,9df01mft368 - [id number] - [id number] Implanted:Qty: 1 on 12/04/2023 by [facility]entLeft: Gita Car [id number]/31/[id number] / [id number] / Procedures Procedure NamePriorityDate/TimeAssociated DiagnosisCommentsOCCULT BLOOD X 1, THEDQAbftegn79/13/2025 12:11 PM EDT HEMOGLOBIN L7PBkr-Yb14/24/2024 5:22 PM EST from Last 3 Months or Most Recently Relevant to Health Maintenance Results * Occult blood x 1, stool (02/20/2025 12:11 PM EDT)ComponentValueRef RangeTest MethodAnalysis TimePerformed AtPathologist SignatureFecal Occult BldNegative Negative, None Kxkdhjha52/13/2025 1:12 PM EDTUT [facility] ([facility]) Specimen (Source)Anatomical Location / LateralityCollection Method / Volume Collection TimeReceived TimeStoolRectal contents / UnknownNon-blood Collection / Exyyrmp0102/20/2025 12:11 PM EDT02/20/2025 12:17 PM EDT Narrative Authorizing ProviderResult TypeResult StatusAndrew Moses PA-CLAB BODY FLUIDS AND STOOLS ORDERABLESFinal ResultPerforming OrganizationAddressCity/State/ZIP Code Phone Number [facility] ([facility]) [address] [place] [address] * (ABNORMAL) Hemoglobin A1c (12/03/2023 5:22 PM EST)ComponentValueRef RangeTest MethodAnalysis TimePerformed AtPathologist SignatureHemoglobin A1C10.4(H)4.0 - 6.0 %12/04/2023 9:24 AM [facility] ([facility])Estimated Average Glucose 252mg/dL12/04/2023 9:24 AM [facility] ([facility])Specimen (Source) Anatomical Location / LateralityCollection Method / VolumeCollection Time Received TimeBloodVenous blood specimen / UnknownVenipuncture / Unknown 12/03/2023 5:22 PM EST12/03/2023 5:25 PM EST Narrative Authorizing ProviderResult TypeResult StatusAsijeffrey BROWNE BLOOD ORDERABLES Final ResultPerforming OrganizationAddressCity/State/ZIP CodePhone Number [facility] ([facility]) [address] [place] [address] from Last 3 Months or Most Recently Relevant to Health Maintenance Insurance * Guarantor: Diann Patel TypeRelation to PatientDate of BirthPhone Billing AddressPersonal/NzqbegKzso1955 [facility] [address] Advance Directives * Full Code (Latest Code Status on File) Date ActivatedDate InactivatedComments02/18/2025 1:51 PM02/22/2025 6:33 PM * Full Code Date ActivatedDate InactivatedComments12/03/2023 7:43 PM12/05/2023 7:35 PM * Full Code Date ActivatedDate RbzefiuoozcTgztesem76/8/2022 6:06 PM09/18/2022 4:40 PM Care Teams Team MemberRelationshipSpecialtyStart DateEnd Date Nik Bell MD [address] [facility] [address] [place] [address] [facility] - General06/28/22 Alexis Carranza DPM [address] [facility] [address] [place] [address] Podiatr12/05/23
--- OUTSIDE RECORDS SUMMARY | 2025-11-11 15:21 | XMS_ITS | CCD ---
Author Organization [facility] Care Team Providers Care Hereditary Cancer Program Coordinator Name Role Phone Geo Mathew Unavailable [phone] CHASE AMAYA Attending Unavailable UNKNOWN, PHYSICIAN [...] Borden Unavailable MONSE Bell Primary Care Provider [phone] MD Geo Mathew Attending Provider [phone] Champ Bell MD Primary Care Provider MONSE Bell Primary Care Provider [phone] KIKA Gilmore Attending Provider MD Rodrigo Yousif Attending Provider [phone] Darrell BUTT, PhD, Trace Unavailable Unavalucero ESCAMILLA, MARGARETH H Attending Unavailable NOE CONKLIN Primary Care Unavailable FRANCINE, MARGARETH H Attending Unavailable ROHINIBHARATI KNAPPR Referring Unavailable NOE CONKLIN Primary Care Unavailable JEREMY, TAREK Admitting Unavailable JEREMY TAREK Attending Unavailable NOE CONKLIN Primary Care Unavailable NOE CONKLIN Primary Care Unavailable TABIRTA, TERRI I Referring Unavailable Champ Bell MD Unavailable Friday UTILITY PIPE LAYER, Magalie Unavailable Unavailable Primary Care Provider UnavailNoe Gonzales DO Primary Care Provider Aakash HOPPER, [facility] Unavailable [phone] Darrell BUTT, PhD, Trace Unavailable Cruz Ramírez MD, PhD, Trace Unavailable Cruz Browne UTILITY PIPE LAYER, Lesa Unavailable Unavailable Champ Bell II Primary Care Provider Ross Martinez APRN Emergency Provider [phone] Edvin Casper MD Admit Provider Edvin Casper MD Attending Provider Champ Bell II Attending Provider [phone] Charlene Mckinley MD Unavailable [phone] Browne UTILITY PIPE LAYER, Lesa Unavailable MALENFANT, AKIRA E Attending Unavaila VALENTE Hebert Referring Unavailable ARGELIA SOLIZ Referring Unavailable TIFFANIE, HANI Referring Unavailable ARLIN, ABIOAL Referring Unavailable KATKORODRIGO Referring Unavailable TIFFANIE, HANI Admitting Unavailable TIFFANIE, SABAI Attending Unavailable ABIOLA OLIVEROS Referring Unavailable MOSAMMY, VALENTE Attending Unavailable MOUKARBEL, VALENTE Attending Unavailable MOUKARBEL, VALENTE Attending Unavailable TIFFANIE, HANI Referring Unavailable CARMELLA ALLEN Attending Unavailable Champ Bell II Primary Care Provider Dale Fox MD Attending Provider Alexis Gilmore DPM Attending Provider Vinod Carlos [...] Carlos MD, Agustin Unavailable Unavailabl e Friday UTILITY PIPE LAYER, Magalie Unavailable Lauren Finn RN Unavailable Trace [...] of OnsetReaction(s) Facility (1 source)Penicillin VDrug AllergyhivesNort Rehab Loan Group Other (7 sources)Penicillins; Translations: [PENICILLINS]Drug allergy (disorder) 92-17-9956XwueuQjmHock[facility] (8 sources)Penicillin; Translations: [PENICILLIN]Drug Tlesuda97-11-2601yoxfv, UnknownCV Physicians (20 sources)PenicillinsDrug Ujknqfn94-24-0477Qzwik, UnknownCox North (4 sources)PenicillinsDrug Nleoxqa74-19-3276Vmvro, Other, UnknownOhio[facility] (1 source)PenicillinsDrug allergy (disorder)89-13-9363LghjgjtpdMercer County Community Hospital Rep[facility] Medications Current Medications MedicationDrug Class(es)DatesSig [...] 5 mg oral tablet (16 sources)Opioid AgonistStart: 05-74-6365sqpf 1 tablet by mouth once daily as needed for painHydrocodone-Acetaminophen 5-325 mg tablet Active 1 TAB PO Daily as needed for pain July 19, 2025 12:00am Complies with drug therapyStart: 07-18-2025 End: 95-66-2070sfdr 1 tablet by mouth every eight hours as needed for pain HYDROcodone-acetaminophen ([facility]) 5-325 MG tablet Indications: Pain Take 1 tablet by mouth every 8 (eight) hours if needed for moderate pain (PRN pain) for up to 5 days 15 tablet 07/27/2025 08/01/2025 Activealbuterol 0.83 mg/ml inhalation solution (20 sources)beta2-Adrenergic AgonistStart: 78-52-7550Ceclawkjo Sulfate 2.5 mg /3 mL (0.083 %) solution for nebulization Active 2.5 MG CNTNEBULIZ Four times daily as needed for shortness of breath or wheezing July 19, 2025 12:00am Complies with drug therapyStart: 06-21-2024 End: 74-22-6318jkqsjiori (2.5 MG/3ML) 0.083% nebulizer solution 3 ml Inhalation 4 times a day and as needed for 6 03/01/2025 Discontinued (Ineffective)albuterol 2.5 mg /3 mL (0.083 %) nebulizer solution Take 3 mL (2.5 mg) by nebulization 4 times a day as needed for wheezing or shortness of breath. ActiveamLODIPine 10 mg oral tablet (20 sources)Dihydropyridine Calcium Channel BlockerStart: 44-61-0107nlFSLXElrw (Norvasc) 10 MG tablet 05/11/2024 ActiveStart: 01-13-2023 End: 22-92-0775fuir 1 tablet by mouth once dailyAmlodipine 5 mg tablet Discontinued 5 MG PO Daily January 13, 2023 1:00am February 15, 2025 6:47pmapixaban 5 mg oral tablet (20 sources)Factor Xa InhibitorStart: 01-13-2023 End: 55-38-7016dfco 1 tablet by mouth in the morningapixaban (Eliquis) 5 MG tablet Indications: Paroxysmal atrial fibrillation (CMS/HCC) Take 1 tablet (5 mg) by mouth in the morning and 1 tablet (5 mg) before bedtime. 200 tablet 1 08/23/2024 12/30/2024 Discontinued (Cost of medication)Start: 01-13-2023 End: 70-26-1113tsan 1 tablet by mouth every twelve hoursEliquis 5 mg tablet take 1 tablet by oral route 2 times every day 5 MG - Activeatorvastatin 80 mg oral tablet (20 sources)HMG-CoA Reductase InhibitorStart: 54-97-7207jdbv 1 tablet by mouth once dailyatorvastatin (Lipitor) 80 MG tablet Indications: Mixed hyperlipidemia TAKE 1 TABLET BY MOUTH EVERY DAY 100 tablet 3 11/15/2024 Activebenzonatate 200 mg oral capsule (7 sources)Non-narcotic AntitussiveStart: 09-22-2024 End: 91-62-3675byeu 1 capsule by mouth three times daily [...] BREAKFAST AND WITH EVENING MEAL 02/22/2025 ActiveStart: 45-89-0952ddal 1 tablet by mouth every twelve hours carvedilol (Coreg) 25 MG tablet Take 25 mg by mouth every 12 (twelve) hours. 0 01/28/2023 ActiveStart: 06-07-0443pdvc 0.5 tablet by mouth every twelve hours carvedilol (Coreg) 25 mg tablet Take 0.5 tablets (12.5 mg) by mouth every 12 hours. 01/13/2023 ActiveStart: 93-08-4706pmyg 1 tablet by mouth every twelve hourscarvedilol (Coreg) 25 mg tablet Take 1 tablet (25 mg) by mouth every 12 hours. 01/13/2023 ActiveStart: 01-13-2023 End: 36-51-2536adej 1 tablet by mouth twice dailyCarvedilol 25 mg tablet Discontinued 25 MG PO Twice daily January 13, 2023 1:00am July 19, 2025 2:49pmStart: 81-66-8800mnez 12.5 mg by mouth twice dailyCarvedilol Active 12.5 MG PO Twice daily January 13, 2023 1:00am End: 17-97-8126pkci 1 capsule by mouth once dailyCoreg CR 20 mg capsule, extended release take 1 capsule by oral route every day 20 MG - Tzs-30-9543El Longer Activecarvedilol (Coreg) 25 MG tablet Take 12.5 mg by mouth in the morning and 12.5 mg before bedtime. Activecitalopram 20 mg oral tablet (20 sources)Serotonin Reuptake InhibitorStart: 88-20-6872pulb 1 tablet by mouth twice dailycitalopram (CeleXA) 20 mg tablet Take 1 tablet (20 mg) by mouth 2 times a day. 01/13/2023 ActiveStart: 95-19-8327pqwp 1 tablet by mouth once daily citalopram (CeleXA) 20 MG tablet Indications: Generalized anxiety disorder Take 1 tablet (20 mg) bymouth Daily 100 tablet 2 11/30/2024 ActiveStart: 05-05-2019 End: 29-59-7295fuua 1 tablet by mouth once dailycitalopram 40 mg tablet take 1 tablet by oral route every day 40 MG - No Longer Active take 0.5 tablet by mouth every twenty-four hoursCitalopram Hydrobromide 40 MG 0.5 tablet Orally Once a day Activecodeine phosphate 2 mg/ml / guaiFENesin 20 mg/ml oral solution (7 sources)Opioid AgonistStart: 09-22-2024 End: 10-39-3061twoj 5 mL by mouth four times daily as needed for cough guaiFENesin-codeine (guaiFENesin AC) 100-10 MG/5ML syrup Indications: Acute cough Take 5 mL by mouth 4 (four) times a day as needed for cough for up to 10 days 120 mL 09/22/2024 10/02/2024 ActiveContinuous Glucose Legislative Assistant (Dexcom G7 Legislative Assistant) device (20 sources)Start: 16-73-7102Lsjutgdiwa Glucose Legislative Assistant (Dexcom G7 Legislative Assistant) device Indications: Type 2 diabetes mellitus with [...] 1 Device yearly 1 each 03/05/2024 ActiveStart: 39-07-5439Fjsposoruu Glucose Legislative Assistant (Dexcom G7 Legislative Assistant) device Indications: Type 2 diabetes mellitus with [...] 03/05/2024 ActiveContinuous Glucose Sensor (Dexcom G7 Sensor) [facility] (20 sources)Start: 29-70-5893Mfiqcvjeck Glucose Sensor (Dexcom G7 Sensor) [facility] Indications: Type 2 diabetes mellitus with hyperglycemia, with long-term current use of insulin ([facility]) 1 UNITS EVERY 10 (TEN) DAYS 9 each 3 02/03/2025tive Start: 76-83-2551Gwpxfnskwd Glucose Sensor (Dexcom G7 Sensor) [facility] Indications: Type 2 diabetes mellitus with hyperglycemia, with long-term current use of insulin (CMS/[facility]) 1 UNITS EVERY 10 (TEN) DAYS 9 each 3 02/03/2025 Active dabigatran etexilate 150 mg oral capsule (20 sources)Start: 09-77-9726iqqz 1 capsule by mouth every twelve hoursPradaxa 150 mg capsule take 1 capsule by oral route 2 times every day 150 MG - ActiveStart: 59-23-3007fvjq 1 capsule by mouth twice dailyDabigatran Etexilate 150 mg capsule Active 150 MG PO Twice daily July 19, 2025 12:00am Complies with drug therapyStart: 12-20-2024 End: 62-18-8529xgqb 1 capsule by mouth in the morningdabigatran etexilate (Pradaxa) 150 MG capsule Indications: Paroxysmal atrial fibrillation ([facility]/HCC) Take 1 capsule (150 mg) by mouth in the morning and 1 capsule (150 mg) before bedtime. Do not crushor chew.. 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 (CMS/HCC) Take 1 tablet (10 mg) by mouth Daily 30 tablet 11 12/30/2024 03/01/2025 Discontinued (Ineffective)diclofenac sodium 0.01 mg/mg topical gel (20 sources)Nonsteroidal Anti-inflammatory DrugStart: 17-52-6062orlakhxeax sodium 1 % gel APPLY 4 GRAMS TO ABDOMINAL WALL FOUR TIMES DAILY NEEDED 02/16/2025 ActiveStart: 27-83-0689Omuuoqsecx Sodium (Voltaren Arthritis Pain) 1 % gel Active 4 GM TOPICAL Four times daily as needed for abdominal pain February 16, 2025 12:54pm Apply to abdominal wall Complies with drug therapyStart: 32-69-5970Jlvxunycys Sodium (Voltaren Arthritis Pain) 1 % gel Active 4 GM TOPICAL Four times daily as needed for abdominal pain February 16, 2025 12:54pm Apply to abdominal walldicyclomine hydrochloride 10 mg oral capsule (20 sources)AnticholinergicStart: 02-22-2025 End: 00-66-9025ffsqxkebyzb (Bentyl) 10 MG capsule Indications: Irritable bowel syndrome with both constipation anddiarrhea Take 1 capsule (10 mg) by mouth in the morning and 1 capsule (10 mg) at noon and 1 capsule(10 mg) in the evening and 1 capsule (10 mg) before bedtime. 200 capsule 2 04/14/2025 ActiveStart: 01-13-2023 End: 93-70-9376zryy 1 tablet by mouth three times dailyDicyclomine 20 mg Tablet Discontinued 20 MG PO Three times daily January 13, 2023 1:00am May 19, 2024 8:19am End: 57-58-4319udvt 1 tablet by mouth four times daily [...] sulfate 325 mg oral tablet (20 sources)Start: 21-87-1258zhnf 1 tablet by mouth once dailyferrous sulfate 325 mg (65 mg iron) tablet take 1 tablet by oral route every day 325 MG - ActiveStart: 02-16-2025 End: 99-31-3269ljbk 1 tablet by mouth every other dayferrous sulfate 325 (65 Fe) MG tablet Indications: Asthma without status asthmaticus without complication, unspecified asthma severity, unspecified whether persistent (HCC) Take 1 tablet (325 mg) by mouth every other day 50 tablet 07/20/2025 ActiveStart: 01-13-2023 End: 65-20-5069rnnn 1 tablet by mouth once dailyFerrous Sulfate 140 mg (45 mg iron) Tablet Extended Release Discontinued 140 MG PO Daily January 1:00am May 18, 2024 10:44amFerrous Sulfate Activefurosemide 40 mg oral tablet (20 sources)Loop DiureticStart: 10-14-7825uigd 40 mg by mouth once daily before hsrwajizn88 mg, oral, Daily before breakfast, First dose on Fri06/22/24 at 0700 Start: 03-19-2024 End: 46-35-8302aubz 1 tablet by mouth once dailyfurosemide 20 mg tablet take 1 tablet by oral route every day 20 MG - No Longer Active Start: 03-19-2024 End: 13-03-8363htaf 3 tablets by mouth in the morningfurosemide (Lasix) 20 MG tablet Take 60 mg by mouth in the morning. 03/19/2024 03/01/2025 Discontinued (Therapy completed)Start: 83-61-1923ubys 1 tablet by mouth once dailyfurosemide (Lasix) 40 MG tablet Indications: Edema, unspecified type TAKE 1 TABLET BY MOUTH EVERY DAY 90 tablet 12/20/2024 ActiveStart: 31-53-0785Yjkecvonzi 40 mg tablet Active 60 MG PO Daily January 13, 2023 1:00am Complies with drug therapyStart: 64-93-4414myit 60 mg by mouth once dailyFurosemide Active 60 MG PO Daily January 13, 2023 1:00amgabapentin 300 mg oral capsule (20 sources)Anti-epileptic AgentStart: 70-41-1466lhev 1 capsule by mouth twice mg, oral, 2 times daily, First dose on Fri06/21/24 at 2100, Capsules may be opened and sprinkled on food (eg, applesauce, orange juice, puddingStart: 03-50-7024uhao 2 capsules by mouth twice dailygabapentin (Neurontin) 300 mg capsule Take 2 capsules (600 mg) by mouth 2 times a day. 01/13/2023 ActiveStart: 01-13-2023 End: 27-86-1609zhcw 1 capsule by mouth in the morninggabapentin (Neurontin) 300 MG capsule Indications: Polyneuropathy due to type 2 diabetes mellitus (HCC) Take 1 capsule (300 mg) by mouth in the morning and 1 capsule (300 mg) before bedtime. 180 capsule 3 09/22/2024 09/22/2025 ActiveStart: 63-81-5085cpls 1 capsule by mouth twice dailygabapentin 300 mg capsule take 1 capsule by oral route 2 times every day - Activeglucagon (rdna) 1 mg injection (2 sources)Antihypoglycemic AgentStart: ml glucose 500 mg/ml prefilled syringe (2 sources)Start: 42-02-7765sphqUTACNHJ hydrochloride 100 mg oral tablet (20 sources)Arteriolar VasodilatorStart: 03-02-2025 End: 45-70-8990infnAWJNEZY (Apresoline) 100 MG tablet 03/02/2025 ActiveStart: 03-86-4790mdvqTGRMIMK (Apresoline) 100 MG tablet 03/02/2025 ActiveStart: 12-20-2024 End: 21-15-5514ruik 1 tablet by mouth twice dailyHydralazine 25 mg tablet Discontinued 25 MG PO Twice daily February 15, 2025 12:00am July 19, 2025 2:52pmStart: 17-71-6717hmcmIQISWAJ (Apresoline) 50 MG tablet Take 75 mg by mouth in the morning and 75 mg before bedtime. 08/22/2024 ActiveStart: 05-10-2024 End: 25-50-0659voou 1 tablet by mouth twice dailyHydralazine 50 mg tablet Discontinued 50 MG PO Twice daily February 15, 2025 12:00am July 19, 2025 2:52pmStart: 01-13-2023 End: 89-80-2318Whrogykkauf 100 mg tablet Discontinued 50 MG PO Twice daily January 13, 2023 1:00am February 15, 2025 6:39pmStart: 34-59-5867fpzq 50 mg by mouth twice dailyHydralazine Active 50 MG PO Twice daily January 13, 2023 1:00amStart: 38-13-3828lpuw 100 mg by mouth twice dailyHydralazine Active 100 MG PO Twice daily January 13, 2023 1:00am3 ml insulin glargine 100 unt/ml pen injector (20 sources)Insulin AnalogStart: 07-20-2025 End: 08-69-1177tvehqm 45 [IU] by subcutaneous injection at bedtimeinsulin glargine (Lantus) 100 UNIT/ML pen Indications: Type 2 diabetes mellitus with hyperglycemia,with long-term current use of insulin (HCC) Inject 45 Units under the skin at bedtime 40.5 mL 3 07/20/2025 07/20/2026 ActiveStart: 03-01-2025 End: 49-72-0353hxklmu 40 [IU] by subcutaneous injection at bedtimeinsulin glargine (Lantus) 100 UNIT/ML pen Indications: Type 2 diabetes mellitus with hyperglycemia,with long-term current use of insulin (HCC) Inject 40 Units under the skin at bedtime 36 mL 3 06/16/2025 07/20/2025 DiscontinuedStart: 02-15-2025 End: 28-40-3074Lcbgqi Solostar U-100 Insulin 100 unit/mL (3 mL) subcutaneous pen inject by subcutaneous route per prescriber's instructions. Insulin dosing requires individualization. 0.00 - ActiveStart: 12-30-2024 End: 53-16-5324Fxpntkn Glargine (Lantus Solostar U-100 Insulin) 100 unit/mL (3 mL) insulin pen Active 80 UNIT SUBCUT Bedtime February 15, 2025 12:00am Complies with drug therapyStart: 09-22-2024 End: 41-88-0134rzlijdk glargine (Basaglar KwikPen) 100 UNIT/ML pen Indications: Type 2 diabetes mellitus with hyperglycemia, with long-term current use of insulin (CMS/HCC) Inject 75 Units under the skin at ltmzori76 mL 11 09/22/2024 12/30/2024 DiscontinuedStart: 09-22-2024 End: 67-37-0051celieb 70 [IU] by subcutaneous injection at bedtimeinsulin glargine (Lantus) 100 UNIT/ML injection Indications: Type 2 diabetes mellitus with hyperglycemia, with long-term current use of insulin (CMS/HCC) Inject 70 Units under the skin at bedtime 09/22/2024 09/22/2024 Discontinued (Reorder) Start: 09-22-2024 End: 49-71-5751tlyhjh 75 [IU] by subcutaneous injection at bedtimeinsulin glargine (Lantus) 100 UNIT/ML injection Indications: Type 2 diabetes mellitus with hyperglycemia, with long-term current use of insulin (CMS/HCC) Inject 75 Units under the skin at bedtime 22.5 mL 11 09/22/2024 09/22/2024 Discontinued (Reorder)Start: 03-18-2024 End: 47-12-8118jncxar 40 [IU] by subcutaneous injection at bedtimeinsulin glargine (Lantus) 100 UNIT/ML injection Indications: Type 2 diabetes mellitus with hyperglycemia, with long-term current use of insulin (CMS/HCC) Inject 40 Units under the skin at bedtime 10 mL 12 03/18/2024 09/22/2024 Discontinued Start: 25-35-4827Nfpkyhmc KwikPen U-100 Insulin 100 unit/mL (3 mL) pen Inject 50 Units under the skin once daily at bedtime. 11/17/2023 ActiveStart: 11-14-2023 insulin glargine (Basaglar KwikPen) 100 UNIT/ML pen Indications: Type 2 diabetes mellitus with hyperglycemia, unspecified whether long term care administrator insulin use (CMS/HCC) INJECT 86 UNITS UNDER THE SKIN AT AT BEDTIME 75 mL 3 11/14/2023 Active insulin glargine (Semglee) 100 UNIT/ML injection Inject 86 Units under the skin at bedtime. 0 ActiveSemglee 100 UNIT/ML as directed Subcutaneous Not-Taking Insulin Glargine-Yfgn (2 sources)Start: 28-12-7162xbcmrn 50 [IU] by subcutaneous injection at bedtime Insulin Glargine-Yfgn Active 50 UNIT SUBCUT Bedtime May 18, 2024 12:00am insulin lispro 100 unt/ml injectable solution (1 source)Insulin AnalogStart: 21-58-9953wshbcuw, regular, human 100 unt/ml injectable solution (20 sources)InsulinStart: 22-32-2358RauuBKM R 100 UNIT/ML injection Indications: Type 2 [...] 40 mL 2 09/22/2024 ActiveStart: 01-29-2024 End: 17-25-8603uinlyd 22 [IU] by subcutaneous injection onceinsulin regular (NovoLIN R) 100 UNIT/ML injection Indications: Type 2 diabetes mellitus with hyperglycemia, with long-term current use of insulin (CMS/HCC) INJECT DIRECTED UNDER THE SKIN PER SLIDING SCALE WITH MAX OF 22 UNITS PER DAY 40 mL 2 01/29/2024 09/22/2024 Discontinued (Reorder)Start: 40-16-5590skutmg 10 [IU] by subcutaneous injection once before mealtimeInsulin Regular Human (Novolin R Flexpen) 100 unit/mL (3 mL) Insulin Pen Active 22 UNIT SUBCUT 3x/Day before meals January 13, 2023 1:00am if less then 150 does not take insulin if its greater the 150takes 10units Complies with drug therapyStart: 09-19-4968btemxl 10 [IU] by subcutaneous injection once before mealtimeInsulin Regular Human (Novolin R Flexpen) 100 unit/mL (3 mL) Insulin Pen Active 10 UNIT SUBCUT 3x/Day before meals January 13, 2023 1:00am if less then 150 does not take insulin if its greater the 150takes 10unitsStart: 52-26-5762fmmdkr 9 [IU] by subcutaneous injection three times dailyInsulin Regular Human (Novolin R Flexpen) 100 unit/mL (3 mL) Insulin Pen Active 9 UNIT SUBCUT Threetimes daily January 13, 2023 1:00am Start: 63-91-6528YbozOPK R 100 UNIT/ML injection Inject 20 mL under the skin in the morning. 0 10/24/2022 Active End: 73-27-7517Fbwasbj R Regular U-100 Insulin 100 unit/mL injection solution inject by subcutaneous route per prescriber's instructions. Insulin dosing requires individualization. 0. No Longer ActiveNovoLIN R 100 UNIT/ML as directed Injection Activeketorolac tromethamine 5 mg/ml ophthalmic solution (20 sources)Nonsteroidal Anti-inflammatory Drug, Cyclooxygenase InhibitorStart: 09-01-2024 End: 21-76-0616amsepmvds (Acular) 0.5 % ophthalmic solution 09/01/2024 03/01/2025 Discontinued (Ineffective)Start: 07-13-2024 End: 72-32-4173lxfx 1 drop(s) into the eye(s) in the morningketorolac (Acular) 0.5 % ophthalmic solution Indications: Cataract mature, total senile Administer 1 drop into affected eye(s) in the morning and 1 drop before bedtime. 5 mL 1 07/13/2024 08/12/2024 ActivelevoFLOXacin 500 mg oral tablet (11 sources)Quinolone AntimicrobialStart: 09-20-2025 End: 60-57-8617xcpe 1 tablet by mouth once dailylevoFLOXacin (Levaquin) 500 MG tablet Indications: Acute non-recurrent pansinusitis Take 1 tablet (500 mg) by mouth Daily for 10 days 10 tablet 09/20/2025 09/30/2025 ActiveStart: 08-24-2025 End: 28-51-9658orgb 1 tablet by mouth once dailylevoFLOXacin (Levaquin) 500 MG tablet Indications: Acute non-recurrent pansinusitis Take 1 tablet (500 mg) by mouth Daily for 10 days 10 tablet 08/24/2025 09/03/2025 ActiveStart: 09-22-2024 End: 77-73-7399mvvm 1 tablet by mouth once dailylevoFLOXacin (Levaquin) 500 MG tablet Indications: Acute asthmatic bronchitis (CMS/HCC) Take 1 tablet (500 mg) by mouth Daily for 10 days 10 tablet 09/22/2024 10/02/2024 Activelisinopril 20 mg oral tablet (20 sources)Angiotensin Converting Enzyme InhibitorStart: 61-63-4814tipiygmmus 20 MG tablet Take 20 mg by mouth 05/10/2024 Activeloratadine 10 mg oral tablet (20 sources)Start: 31-99-1787rnxk 1 tablet by mouth in the morningloratadine (Claritin) 10 MG tablet Take 10 mg by mouth in the morning. 02/15/2025 Active methocarbamol 500 mg oral tablet (20 sources)Muscle RelaxantStart: 51-53-4516imto 1 tablet by mouth every eight hours as neededmethocarbamol (Robaxin) 500 MG tablet Take 500 mg by mouth every 8 (eight) hours if needed 05/03/2025 ActivemethylPREDNISolone (4 sources)CorticosteroidStart: 08-24-2025 End: 31-91-3438aknlznEJLAOFMauiex (Medrol Dospak) 4 MG tablets Indications: Acute non-recurrent pansinusitis Follow schedule on package instructions 21 tablet 08/24/2025 08/31/2025 ActiveStart: 09-22-2024 End: 53-14-5186qcrdegKLYWOGLnwicy (Medrol Dospak) 4 MG tablets Indications: Acute asthmatic bronchitis (CMS/HCC) Follow schedule on package instructions 21 tablet 09/22/2024 09/29/2024 ExpiredMultivitamin (Daily Multi-Vitamin) tablet (6 sources)Start: 04-72-6180rkro 1 tablet by mouth once daily in the morning Multivitamin (Daily Multi-Vitamin) tablet Active 1 TAB PO Every morning February 15, 2025 12:00am Complies with drug therapyStart: 19-74-5134hayx 1 tablet by mouth once daily in the morningStart: 89-44-8978knlo 1 tablet by mouth once dailyMultivitamin (Daily Multi-Vitamin) tablet Active 1 TAB PO Daily February 15, 2025 12:00am Complies with drug therapyStart: 95-90-0791jxdo 1 tablet by mouth once dailyMultivitamin (Daily Multi-Vitamin) tablet Active 1 TAB PO Daily February 15, 2025 12:00amMultivitamin preparation (5 sources)Multiple Vitamins tablet qd - Activeofloxacin 3 mg/ml ophthalmic solution (1 source)Quinolone AntimicrobialStart: 07-13-2024 End: 17-57-9898dtfe 1 drop(s) into the eye(s) five times dailyofloxacin (Ocuflox) 0.3 % ophthalmic solution Indications: Cataract mature, total senile Administer1 drop into the right eye 5 (five) times a day for 1 day Starting 1 day before surgery, continue after surgery as directed 5 mL 1 07/13/2024 07/14/2024 Activeondansetron 4 mg disintegrating oral tablet (7 sources)Serotonin-3 Receptor AntagonistStart: 72-14-7473rwvh 1 tablet by mouth every eight hours [...] tablet (20 sources)Proton Pump InhibitorStart: 03-02-2025 End: 72-37-4906ohlf 1 tablet by mouth before mealtimepantoprazole (ProtoNix) 40 MG EC tablet Take 40 mg by mouth in the morning. Take before meals. 03/02/2025 03/02/2026 Activemicroencapsulated potassium chloride 20 meq extended release oral tablet (20 sources)Start: 30-86-5946nesw 1 tablet by mouth once dailypotassium chloride CR (Klor-Con M20) 20 MEQ ER tablet Indications: Benign essential hypertension TAKE 1 TABLET(20 MEQ) BY MOUTH DAILY 90 tablet 08/24/2025 ActiveStart: 04-25-3075ukoc 1 tablet by mouth once daily at mealtimepotassium chloride ER 20 mEq tablet,extended release take 1 tablet by oral route every day with food 20 MEQ - ActiveStart: 01-13-2023 End: 80-75-3660rzps 1 tablet by mouth once dailypotassium chloride CR (Klor-Con M20) 20 MEQ ER tablet Indications: Benign essential hypertension Take 1 tablet (20 mEq) by mouth Daily 90 tablet 04/14/2025 ActiveprednisoLONE acetate 10 mg/ml ophthalmic suspension (20 sources)CorticosteroidStart: 09-01-2024 End: 68-88-8296cflfwsoyJSWT acetate (Pred-Forte) 1 % ophthalmic suspension 09/01/2024 03/01/2025 Discontinued (Ineffective)Start: 07-13-2024 End: 95-17-9546nxyzycttTZTZ acetate (Pred-Forte) 1 % ophthalmic suspension Indications: Cataract mature, total senile Administer 1 drop into both eyes in the morning and 1 drop at noon and 1 drop in the evening and1 drop before bedtime. Do all this for 14 days. 5 mL 1 07/13/2024 07/27/2024 Active spironolactone 25 mg oral tablet (20 sources)Aldosterone Antagonist End: 50-07-9280bdnc 1 tablet by mouth in the morningspironolactone (Aldactone) 25 MG tablet Take 25 mg by mouth in the morning. 03/01/2025 Discontinued (Ineffective) Completed/Discontinued Medications MedicationDrug Class(es)DatesSig (Normalized)Sig (Original)acetaminophen 325 mg / oxyCODONE hydrochloride 5 mg oral tablet (13 sources)Opioid AgonistStart: 06-15-2024 End: 11-66-4633lpoa 1 tablet by mouth every six hours for painoxyCODONE- acetaminophen (Percocet) 5-325 mg tablet Indications: PAD (peripheral artery disease) (CMS-HCC) Take 1 tablet by mouth every 6 hours if needed for severe pain (7 - 10) for up to 7 days. 5 tablet 06/15/2024 06/22/2024 Discontinued (Stop Taking at Discharge)Start: 06-03-2024 End: 23-28-6498cjdc 1 tablet by mouth every eight hours as needed for pain Oxycodone-Acetaminophen (Percocet) 5-325 mg tablet Discontinued 1 TAB PO Every 8 hours as needed for pain 29 08June 03, 2024 February 15, 2025 6:45pmStart: 12-09-2023 End: 46-76-6632blxq 1 tablet by mouth every eight hours for painoxyCODONE- acetaminophen (Percocet) 5-325 MG tablet Indications: Pain Take 1 tablet by mouth every 8(eight) hours if needed for severe pain for up to 5 days 15 tablet 0 12/09/2023 12/14/2023 Activealbuterol 0.833 mg/ml / ipratropium bromide 0.167 mg/ml inhalation solution (18 sources)Anticholinergic, beta2-Adrenergic AgonistStart: 09-22-2024 End: 14-26-8647bsejsbttdpw-albuterol (Duo-Neb) 0.5-2.5 mg/3 mL nebulizer solution Indications: [...] Inhibitor, Nonsteroidal Anti-inflammatory Drug Start: 01-13-2023 End: 29-20-2704lvuo 1 tablet by mouth once dailyAspirin 81 mg Tablet,Chewable Discontinued 81 MG PO Daily January 13, 2023 1:00am May 18, 2024 10:44amBaby Aspirin Activeclopidogrel 75 mg oral tablet (20 sources)P2Y12 Platelet InhibitorStart: 01-08-2024 End: 78-65-5962rdav 1 tablet by mouth once dailyClopidogrel 75 mg tablet Discontinued 75 MG PO Daily May 18, 2024 12:00am June 09, 2025 9:33amtake 1 tablet by mouth every twenty-four hoursClopidogrel Bisulfate 75 MG 1 tablet Orally Once a day Not-TakingContinuous Blood Gluc Sensor (Dexcom G7 Sensor) misc (20 sources)Start: 12-15-2023 End: 19-62-7779Optzeekvta Blood Gluc Sensor (Dexcom G7 Sensor) misc Indications: Type 2 diabetes mellitus with hyperglycemia, with long-term current use of insulin (CMS/HCC) 1 Disk Every 10 (ten) days 3 each 11 12/15/2023 02/03/2025 DiscontinuedStart: 05-09-3768Ezxlatrgvw Blood Gluc Sensor (Dexcom G7 Sensor) misc Indications: Type 2 diabetes mellitus with hyperglycemia, with long-term current use of insulin (CMS/HCC) 1 Disk Every 10 (ten) days 3 each 11 12/15/2023 ActiveInsulin Glargine-Yfgn (3 sources)Start: 05-18-2024 End: 63-19-0862Ybakprs Glargine-Yfgn 100 unit/mL solution Discontinued 50 UNIT SUBCUT Bedtime May 18, 2024 12:00am February 15, 2025 6:44pmInsulin Glargine- Yfgn 100 unit/mL solution (3 sources)Start: 05-18-2024 End: 81-40-9729Ynkblkm Glargine-Yfgn 100 unit/mL solution Discontinued 50 UNIT SUBCUT Bedtime May 18, 2024 12:00am February 15, 2025 6:44pm L-Ejyrwfwuvnpt-C4-B12 3-35-2 MG (3 sources)take 1 tablet by mouth twice eonnyO-Vjzydzprpugk-Y8-B12 3-35-2 MG 1 tablet Orally Twice a day Not-TakingLORazepam 0.5 mg oral tablet (20 sources)Benzodiazepine End: 29-98-5019sdpg 1 tablet by mouth every eight hours [...] day Not-Taking Semaglutide (11 sources)Start: 01-13-2023 End: 54-75-0987fniudi 1 mg by subcutaneous injection every weekSemaglutide (Ozempic) 1 mg/dose (4 mg/3 mL) pen injector Discontinued 1 MG SUBCUT every week January 13, 2023 1:00am May 18, 2024 10:45amStart: 07-97-4000utnamk 1 mg by subcutaneous injection every weekSemaglutide (Ozempic) 1 mg/dose (4 mg/3 mL) pen injector Active 1 MG SUBCUT every week January 13, 2023 1:00amStart: 01-13-2023 inject 1 mg by subcutaneous injection every weekSemaglutide (Ozempic) 1 mg/dose (4 mg/3 mL) pen injector Active 1 MG SUBCUT every week January 13, 2023 12:00am Semglee 100 UNIT/ML (2 sources)Semglee 100 UNIT/ML as directed Subcutaneous Not-Eaegjy0302 ml sodium chloride 9 mg/ml injection (1 source)Start: 06-21-2024 End: 18-74-2429077 mL/hr, intravenous, Continuous, Starting on Fri06/21/24 at 1745, For 6 hours, Recovery & OnUnit, 6-12 hours post procedure. Post-Procedure Hydration Protocol ACC/AHA/MORRO DEXTRIN (3 sources)Benefiber - as directed Orally Not-TakingBenefiber - as directed Orally Active Problems Active Problems Problem ClassificationProblemDateDocumented DateEpisodic/ChronicAcute myocardial infarction (20 sources)Non-ST elevation (NSTEMI) myocardial infarction; Translations: [Myocardial infarction]Onset: 642939-45-1836TsubophJvwfvzz disorders (20 sources)Generalized anxiety disorder; Translations: [Generalized anxiety disorder]Onset: 323095-64-5705GqmlypkYxvyjv (20 sources)Asthmatic bronchitis; Translations: [Unspecified asthma, uncomplicated]Onset: 300791-68-9503IfukdlxOyeaqgr dysrhythmias (20 sources)Unspecified atrial fibrillation; Translations: [Paroxysmal atrial fibrillation]Onset: 046780-85-6595UpkjwlwLhnjjxgi (20 sources)Combined forms of age-related cataract, bilateral; Translations: [Age-related nuclear cataract, bilateral]Onset: 05-05-2024 Resolved: 89-51-8315UplbyfsPdirfyh kidney disease (2 sources)Chronic kidney disease stage 3B ; Translations: [Chronic kidney disease, stage 3b ([facility]-HCC)]29-67-9255QywlqadKsouuti ulcer of skin (20 sources)Non-pressure chronic ulcer of other part of left foot limited to breakdown of skin; Translations: [Non-pressure chronic ulcer of other part of left foot with fat layer exposed]Onset: 09-62-1005GyyeooeNmvlcysiuilf of device; implant or graft (20 sources)Arteriosclerosis of arterial coronary artery bypass graft; Translations: [Atherosclerosis of coronary artery bypass graft(s) without angina pectoris]Onset: 205759-47-5810PyuhmssAmoqcfeqhw heart failure; nonhypertensive (20 sources)Acute combined systolic (congestive) and diastolic (congestive) heart failure; Translations: [Acutecombined systolic and diastolic heart failure]Onset: 220717-21-4685GleehwfJgdxecje atherosclerosis and other heart disease (20 sources)Atherosclerotic heart disease of [place] coronary artery without angina pectoris; Translations: [Coronary atherosclerosis]Onset: 07-23-2022 00-38-5284KcdyycbBfnufdvg atherosclerosis and other heart disease (3 sources)Presence of aortocoronary bypass graft; Translations: [PRESENCE AORTOCORONARY BYPASS GRAFT]Onset: 89-58-9974IwnsggtaOslpquwmmy and other anemia (4 sources)Iron deficiency anemia, unspecified; Translations: [IRON DEFICIENCY ANEMIA UNSPECIFIED]Onset: 03-39-3404SchvuakcSwwowqncms and other anemia (6 sources)Anemia, unspecified; Translations: [Anemia, unspecified]Onset: 39-25-5908ZiowkwjjHohtjmnb mellitus with complications (20 sources)Diabetes mellitus due to underlying condition with foot ulcer; Translations: [Type 2 diabetes mellitus with hyperglycemia]Onset: 01-09-2021 Resolved: 32-72-0757CboizfxIppxonxa mellitus without complication (20 sources)Type 2 diabetes mellitus without complications; Translations: [Type 2 diabetes mellitus without complication]Onset: 12-29-2012 Resolved: 665468-43-9105KtliplaBjajefz on above:Problem List clean-up per request of Phys. EHR CmteDisorders of lipid metabolism (20 sources)Pure hypercholesterolemia, unspecified; Translations: [Mixed hyperlipidemia]Onset: 860549-59-0613JwbtuppGrhrujc on above:Problem List clean-up per request of Phys. EHR CmteDiverticulosis and diverticulitis (20 sources)Diverticulosis of colon; Translations: [Diverticulosis of large intestine without perforation or abscess without bleeding]Onset: 03-29-2010 60-08-3729OawaaffX Codes: Fall (1 source)Unspecified fall, initial encounter; Translations: [UNSPECIFIED FALL INITIAL ENCOUNTER]Onset: 63-63-0680RravnwkeWiriycwnvs disorders (1 source)Gastro-esophageal reflux disease without esophagitis; Translations: [GERD WITHOUT ESOPHAGITIS]Onset: 00-62-5001DvfchrmCvvmhwkxl hypertension (20 sources)Essential (primary) hypertension; Translations: [Benign essential hypertension]Onset: 004698-30-5057RvvygddRsasavu on above:Problem List clean-up per request of Phys. EHR CmteGastritis and duodenitis (20 sources)Atrophic gastritis; Translations: [Chronic atrophic gastritis without bleeding]Onset: 884860-17-6084JcsiuzpHqpe and other crystal arthropathies (20 sources)Chondrocalcinosis; Translations: [Other chondrocalcinosis, unspecified site]Onset: 718206-04-2870VgosixbJzriqhhb; including migraine (20 sources)Migraine; Translations: [Migraine, unspecified, not intractable, without status migrainosus]Onset: 586159-16-8357AhqrmajJaizlpep; including migraine (3 sources)Headache; including migraine; Translations: [HEADACHE UNSPECIFIED] Onset: 67-45-1447Eicby valve disorders (20 sources)Nonrheumatic aortic (valve) stenosis; Translations: [Aortic stenosis, non-rheumatic ]Onset: 94-27-3610IdjbzbxPfsnlihxgjji with complications and secondary hypertension (1 source)Hypertensive heart disease with heart failure; Translations: [HTN HEART DISEASE W/HEART FAIL]Onset: 85-78-7472DpkhmhcNionegndpoema and screening for infectious disease (2 sources)Vaccination needed; Translations: [Encounter for immunization] 73-02-6920IzaxdduhSzljuiutu arthritis and osteomyelitis (except that caused by tuberculosis or sexually transmitted disease) (20 sources)Infection of bone; Translations: [Osteomyelitis, unspecified]Onset: 145307-53-1235XnesrcjDzsumkuyho disorders (20 sources)Decreased estrogen level; Translations: [Other primary ovarian failure]Onset: 940320-07-6038SausiuxCclj disorders (2 sources)Single episode of major depression in full remission; Translations: [Major depressive disorder, single episode, in full remission]56-46-0158Vwsjvir Mycoses (14 sources)Pain in toe; Translations: [Tinea unguium]90-12-5723Qdagvbxr Nonmalignant breast conditions (2 sources)Breast finding ; Translations: [Other signs and symptoms in breast] 21-34-3593AffmordgUqlfmeljx or stenosis of precerebral arteries (20 sources)Carotid artery stenosis; Translations: [Occlusion and stenosis of unspecified carotid artery]Onset: 172534-82-8779ZjuvkzzZdgbved on above: Problem List clean-up per request of Phys. 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]Onset: 41-90-5820XebujffmEynlb aftercare (1 source)Other longterm (current) drug therapy; Translations: [OTH SHREDDER OPERATOR CURRENT DRUG THERAPY]Onset: 41-42-3988UrefangtKnhxf aftercare (1 source)senior living (current) use of antithrombotics/antiplatelets; Translations: [INTERMEDIATE ANTITHROMBOT/ANTIPLATLETS]Onset: 80-69-8759Imuhotpp Other aftercare (1 source)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; Translations: [INTERMEDIATE CURRENT USE OF INSULIN]Onset: 99-68-2745GvbkmnuxFglmp aftercare (1 source)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; Translations: [INTERMEDIATE CURRENT USE OF ASPIRIN]Onset: 30-04-9214RpeutsxjFcmob circulatory disease (2 sources)Peripheral vascular angioplasty status; Translations: [Peripheral vascular angioplasty status]Onset: 19-64-2082WuxmamihNwvsu circulatory disease (2 sources)Low blood pressure; Translations: [Hypotension, unspecified] 53-75-2396AokvhgqsFtvlj connective tissue disease (4 sources)Calcaneal spur of right foot; Translations: [Calcaneal spur, right foot]38-55-1177ZbxcknvcQctjf connective tissue disease (14 sources)Right achilles tendonitis; Translations: [Achilles tendinitis, right leg]62-35-0906ItvluiefYvqzo connective tissue disease (5 sources)Musculoskeletal pain; Translations: [Myalgia, other site]02-16-2025 EpisodicOther connective tissue disease (1 source)Achilles tendinitis, right leg; Translations: [Achilles tendinitis, right leg]Onset: 44-55-3259SnzsezymGnltd eye disorders (7 sources)Vitreous hemorrhage, bilateral; Translations: [Vitreous hemorrhage, bilateral]Onset: 18-67-9758MqeacipGuqou eye disorders (5 sources)Vitreous hemorrhageOnset: 61-57-1059GlfynhiKcoto eye disorders (20 sources)Vitreous hemorrhage, left eyeChronicOther eye disorders (20 sources)Hemorrhage of right vitreous body; Translations: [Vitreous hemorrhage, right eye]Onset: 05-05-2024 Resolved: 935280-23-0678IrtaoriCnklg eye disorders (2 sources)Hemorrhage of left vitreous body; Translations: [Vitreous hemorrhage, left eye]65-75-8937ZthmhnmMjyhn eye disorders (3 sources)Vitreous hemorrhage, right eye; Translations: [Vitreous hemorrhage of right eye]Onset: 59-56-6466ZjcbpcrWyfeb eye disorders (1 source)Hemorrhage of bilateral vitreous bodies; Translations: [Hemorrhage of bilateral vitreous bodies]ChronicOther gastrointestinal disorders (20 sources)Irritable bowel syndrome; Translations: [Irritable bowel syndrome without diarrhea]Onset: 414881-43-2272IfysnsmPdyqb injuries and conditions due to external causes (1 source)Other specified injuries of head, initial encounter; Translations: [OTH SPEC INJURIES HEAD INITIAL ENC]Onset: 91-87-7023VywyolplLskdw lower respiratory disease (2 sources)Cough; Translations: [Acute cough]11-77-1308XkmcwngnUcbyu non- traumatic joint disorders (1 source)Pain in left wrist; Translations: [PAIN IN LEFT WRIST]Onset: 38-65-5836ZtrrvbwrGossx upper respiratory infections (4 sources)Acute pansinusitis; Translations: [Acute pansinusitis, unspecified] 29-91-6527IezdvcddXhqaysavwk and visceral atherosclerosis (20 sources)Peripheral vascular disease; Translations: [Peripheral vascular disease, unspecified]Onset: 09-20-2021 Resolved: 97-60-5080EqwkxztBkwquabs codes; unclassified (2 sources)Hypersomnia, unspecified; Translations: [Hypersomnia, unspecified] Onset: 21-01-9378GhrzzojSuxgmbev codes; unclassified (6 sources)Pain; Translations: [Pain, unspecified]48-44-5847JeyldpsbQvpaimk detachments; defects; vascular occlusion; and retinopathy (20 sources)Bilateral epiretinal membrane of eyes; Translations: [Puckering of macula, bilateral]Onset: 827136-25-9117WfcnkxsXtnpqoreei arthritis and related disease (2 sources)Rheumatoid arthritis; Translations: [Rheumatoid arthritis, unspecified]70-25-6199TltvmmiBhdjlqsle and history of mental health and substance abuse codes (1 source)Personal history of nicotine dependence; Translations: [PERSONAL HISTORY OF NICOTINE DEPEND]Onset: 99-22-3738UtqdpfepGwkmydylwjv; intervertebral disc disorders; other back problems (1 source)Pain in thoracic spine; Translations: [PAIN IN THORACIC SPINE]Onset: 16-67-5628WzuxnovvLnclsnb and strains (2 sources)Unspecified sprain of left wrist, initial encounter; Translations: [Strain of muscle and tendon of back wall of thorax, initial encounter]Onset: 19-25-9742EgzalrsmYfmpmthzxuoj (4 sources)CONTACT W/AND (SUSP) EXPOS COVID-19; Translations: [CONTACT W/AND (SUSP) EXPOS COVID-19]Onset: 03-23-6594Tlhuasnqqjjg (2 sources)A [facility] screening has identified you as FRAIL [...] Four Ways to Beat the Frailty Risk [email or web address] [email or web address]-nbsc-the-fra [email or web address]-[id number] infection (1 source)Disease caused by 2019-nCoV; Translations: [UNVACCINATED COVID 19] Onset: 07-02-2022 Past or Other Problems Problem ClassificationProblemDateDocumented DateEpisodic/ChronicAbdominal pain (20 sources)Abdominal pain; Translations: [Unspecified abdominal pain]Onset: 344961-31-6778QngteyuvUdymppquf infection; unspecified site (20 sources)Klebsiella pneumoniae [K. pneumoniae] as the cause of diseases classified elsewhere; Translations: [Staphylococcal infectious disease]Onset: 367300-07-5859LlhoolgtOyipvsjtyrtz of device; implant or graft (20 sources)Mechanical complication of musculoskeletal implant; Translations: [Other mechanical complication ofother internal orthopedic devices, implants and grafts, initial encounter]Onset: 185425-96-3939DovqywiqHuetfaaahtflr of surgical procedures or medical care (20 sources)Dehiscence of surgical wound; Translations: [Disruption of external operation (surgical) wound, notelsewhere classified, initial encounter]Onset: 683269-25-5126KmynncptQzaqtcixxm and other anemia (20 sources)Anemia; Translations: [Anemia, unspecified]Onset: 02-18-2025 79-36-6636RxlmironNsctnchqmz and other anemia (20 sources)Iron deficiency anemia; Translations: [Iron deficiency anemia, unspecified]Onset: 510330-85-0014SnmparnrUichjpro (20 sources)Gangrenous disorder; Translations: [Gangrene, not elsewhere classified]Onset: 698693-59-8597PbivtjfnCjdpqjc and fatigue (20 sources)Asthenia; Translations: [Weakness]Onset: 333410-15-8454 EpisodicMood disorders (20 sources)Mood disordersOnset: 371302-50-8645Jzkcmfkmofl chest pain (20 sources)Chest pain, unspecified; Translations: [Chest pain]Onset: 12-29-2012 EpisodicOther aftercare (20 sources)Long-term current use of anticoagulant; Translations: [senior living (current) use of anticoagulants]Onset: 573979-54-9448LzezxnidQqmcq and unspecified benign neoplasm (20 sources)History of polyp of colon; Translations: [History of colon polyps] Onset: 478162-85-7831BljnjnpdKwpwm bone disease and musculoskeletal deformities (20 sources)Osteopenia; Translations: [Other specified disorders of bone density and structure, unspecified site]Onset: 065205-36-3923XeroallcJjbaa circulatory disease (3 sources)History of peripheral vascular angioplasty; Translations: [Peripheral vascular angioplasty status]31-36-9439SctcwiciUbcsq connective tissue disease (20 sources)Pain in limb; Translations: [Pain in unspecified limb]Onset: 400727-71-5730UrzdeaspZzrjb connective tissue disease (2 sources)Pain of toes of bilateral feet; Translations: [Pain in right toe(s)] 16-74-2790WvuxgblqNaccl connective tissue disease (1 source)Myalgia, other site; Translations: [Myalgia, other site]Onset: 15-30-5641OvkqteziKsjme eye disorders (20 sources)Dry eyes; Translations: [Dry eye syndrome of bilateral lacrimal glands]Onset: 919439-68-7644ZrwftcvhBmmsd lower respiratory disease (3 sources)Shortness of breath; Translations: [SHORTNESS OF BREATH]Onset: 41-51-8731WfygazthGycrz lower respiratory disease (1 source)Hypoxemia; Translations: [HYPOXEMIA]Onset: 44-81-9754GfbfojyrYewah nutritional; endocrine; and metabolic disorders (20 sources)Overweight; Translations: [Overweight]Onset: EpisodicOther screening for suspected conditions (not mental disorders or infectious disease) (20 sources)Patient encounter status; Translations: [Encounter for screening mammogram for malignant neoplasm of breast]Onset: 051681-93-7128Tndvqjhk Residual codes; unclassified (1 source)Patient's intentional underdosing of medication regimen for other reason; Translations: [PT INTENT UNDERDOS MED OTH REASON]Onset: 07-02-2022 EpisodicResidual codes; unclassified (1 source)Acute pain; Translations: [Pain, unspecified]34-07-4656Rraecnxp Unclassified (1 source)CONTACT W/AND (SUSP) EXPOS COVID-19; Translations: [CONTACT W/AND (SUSP) EXPOS COVID-19]Onset: 95-22-1113Epgitcwvmguy (13 sources)DM with PDR without ME (chief complaint)Onset: 06-30-2024 Resolved: 56-46-4416Txpgihzwtmgh (5 sources)Possible VH (chief complaint)Onset: 13-40-0812Ajbyicuogtee (5 sources)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)Onset: 09-27-2022 Unclassified (5 sources)diabetic eye exam (chief complaint) NO VISION CHANGES (chief complaint)Onset: 47-73-0507Apzogpftucjh (10 sources)diabetic retinopathy (chief complaint) denies vision changes (chief complaint)Onset: 10-26-2019 Resolved: 95-36-7561Ylkiapqbetye (5 sources)diabetic retinopathy (chief complaint) denies new vision change (chief complaint)Onset: 67-04-7348Kstvvrkprkux (5 sources)diabetic retinopathy (chief complaint) Decreased vision (chief complaint)Onset: 07-97-9121Ieaqfcoylepp (6 sources)PDR (chief complaint)Onset: 08-04-2024 Resolved: 25-25-8836Mmlswahwamvd (2 sources)Patient encounter -48-6121Zbtfyxuwgrvc (1 source)blurred vision (chief complaint)Onset: 72-93-0577Vwacnsq tract infections (1 source)Urinary tract infection, site not specified; Translations: [UTI SITE NOT SPECIFIED]Onset: 29-56-3606Yzmfyhzx Results Test NameValueInterpretationReference RangeFacilityBasic Metabolic Panelon 89-76-6751Dcjxikzmxe Clr Calc Yrfkwlrz48.79NormSouth [facility] Comment on above:Result Comment: PERFORMED BY: [place] [id number] PATHOLOGIST IMPORT/EXPORT CLERK ARCHIE MENDOZA M.D.Performed By: #### BMP #### [facility] [address] [place] [address] USAGFR/1.73 sq M.predicted MDRD (S/P/Bld) [Vol rate/Area] 46.982 mL/min/{1.73_m2}NormalOrlando Health Emergency Room - Lake Mary Physician GroupComment on above: Performed By: #### BMP #### [facility] [address] [place], [place] [id number] USACalcium [Mass/volume] in Serum or PlasmaOrdered By: Shamar Bowles on 26-63-3485Hadoedp [Mass/Vol]9.5 mg/dLNormal8.6-10.3FUniversity Hospitals TriPoint Medical CenterComment on above:Performed By: #### BMP #### [facility] [address] [id number] USACapillary blood glucose measurement by glucometer (mass/volume)Ordered By: Alexis Gilmore on 63-81-8814Jymsrfb [Mass/Vol]209 mg/dL [facility] CenterComment on above:Random Glucose Reference Range is dependent [...] Serum or PlasmaOrdered By: Shamar Bowles on 22-01-9680VA6 [Moles/Vol]26.0 mmol/TNoario95.0-31.0[facility] HospitalComment on above:Performed By: #### BMP #### [facility] [address] [place] [address] USAChloride [Moles/volume] in Serum or PlasmaOrdered By: Shamar Bowles on 17-02-6098Qmeuxmgc [Moles/Vol]102 mmol/IIywoim98-122CdtwitdzbMercer County Community HospitalComment on above:Performed By: #### BMP #### [facility] [address] [id number] USACreatinine [Mass/volume] in Serum or PlasmaOrdered By: Shamar Bowles on 86-28-9825Mtsagoyeyq [Mass/Vol]1.23 mg/dLHigh0.60-1.20[facility] HospitalComment on above:Performed By: #### BMP #### [facility] [address] [id number] USAGLUCOSE POCT GLUCOMETERSon 01-56-8782IOVESZM3Qgg1: Cleaned MeterNOMS HealthcareGlucose [Mass/Vol]209 mg/dLNOMS HealthcareComment on above: Random Glucose Reference Range is dependent on time and content of last meal. Glucose of more than 200 mg/dL in a nonstressed, ambulatory subject supports the diagnosis of Diabetes Mellitus. NOMS GfmukysmrjGZFWYSJ9Sgr8: Cleaned MeterNOMS HealthcareGlucose [Mass/Vol]241 mg/dLNOMS HealthcareComment on [...] Blood by CreatinineOrdered By: Shamar Bowles on 95-14-6279Nisavqzywt filtration rate [Volume Rate/Area] in Serum, Plasma or Blood by Uvcjudxjjq69.982 mL/Min [facility] County Community HospitalGlucose Poct Glucometerson 12-13-3477Rjnmzfb0 Glu2: Cleaned MeterPalm Beach Gardens Medical Center Physician GroupComment on above:Result Comment: PERFORMED BY: [place] [address] PATHOLOGIST IMPORT/EXPORT CLERK ARCHIE MENDOZA M.D.Performed By: #### GLULS #### Point of Care testing ,Njkfjhr1Jpn3: Cleaned MeterNoAtrium Health Wake Forest Baptist Physician GroupComment on above: Result Comment: PERFORMED BY: [place] [address] PATHOLOGIST IMPORT/EXPORT CLERK ARCHIE MENDOZA M.D.Performed By: #### GLULS #### Point of Care testing ,Glucose [Mass/Vol]241 mg/dLPalm Beach Gardens Medical Center Physician GroupComment on above: Result Comment: Random Glucose Reference Range is dependent on time and content of last meal. Glucose of more than 200 mg/dL in a nonstressed, ambulatory subject supports the diagnosis of Diabetes Mellitus.Performed By: #### GLULS #### Point of Care testing ,Glucose [Mass/Vol]261 mg/dLPalm Beach Gardens Medical Center Physician GroupComment on above: Result Comment: Random Glucose Reference Range is dependent on time and content of last meal. Glucose of more than 200 mg/dL in a nonstressed, ambulatory subject supports the diagnosis of Diabetes Mellitus. PERFORMED BY: [place] [address] PATHOLOGIST IMPORT/EXPORT CLERK ARCHIE MENDOZA M.D.Performed By: #### GLULS #### Point of Care testing ,Glucose [Mass/volume] in Serum or PlasmaOrdered By: Shamar Bowles on 07-22-2025 Glucose [Mass/Vol]239 mg/lFPsly25-642UxpkptxylMercer County Community HospitalComment on above:ADA recommended reference rangeRandom Glucose [...] recommended reference rangePerformed By: #### BMP #### [facility] [address] [place] [address] USANo Panel InformationOrdered By: Alexis Gilmore on 04-12-2371Gujkifl Glucose CommentGlu2: cleaned meterMercer County Community HospitalNo Panel InformationOrdered By: Shamar Bowles on 30-50-5772Flwpykeg Creatinine Clearance (Chem41.79Mercer County Community HospitalPotassium [Moles/volume] in Serum or PlasmaOrdered By: Shamar Bowles on 76-08-5681Dapelgsdd [Moles/Vol]4.9 mmol/LNormal3.5-5.1FUniversity Hospitals TriPoint Medical CenterComment on above:Performed By: #### BMP #### [place] [address] USASerum or plasma anion gap determinationOrdered By: Shamar Bowles on 44-70-0728Vkhof gap [Moles/Vol]11.9 mmol/LNormal6.0-15.0Mercer County Community HospitalComment on above:Performed By: #### BMP #### [place] [address] USASodium [Moles/volume] in Serum or PlasmaOrdered By: Shamar Bowles on 23-02-7571Jlwefs [Moles/Vol]135 mmol/VOsn223-559KghofnirvMercer County Community HospitalComment on above:Performed By: #### BMP #### [place] [address] USAUrea nitrogen [Mass/volume] in Serum or PlasmaOrdered By: Shamar Bowles on 33-17-2134Swhw nitrogen [Mass/Vol]38 mg/dLHigh7-25Mercer County Community HospitalComment on above:Performed By: #### BMP #### [address] [place] [address] USAALBUMIN, RANDOM URINE W/CREATININEon 45-97-6431KWSZYHJ, URINE0.4 mg/dLNormalSee Note:Quest DiagnosticsComment on above:Result Comment: Reference Range: Reference Range Not establishedPerformed By: #### 1759, 00241, 7600, 6517, 899 #### [facility] of [place] [address] Database Security Expert: Jensen Johnson MDALBUMIN/CREATININE RATIO, RANDOM URINE13 mg/g [...] within a diagnostic category.Performed By: #### 1759, 29209, 0, 6517, 899 #### [facility] [place] [address] Database Security Expert: Jensen Johnson MDCreatinine (U) [Mass/Vol]31 mg/jOQbhoij25-827 Quest DiagnosticsComment on above:Performed By: #### 1759, 42468, 7600, 6517, 899 #### [facility] [place] [address] Database Security Expert: Jensen Johnson MDCBC (H/H, RBC, INDICES, WBC, PLT)on 07-21-2025 Erythrocyte distribution width (RBC) [Ratio]14.1 %Qfbmtg52.0-15.0Quest DiagnosticsComment on above:Performed By: #### 1759, 53353, 7600, 6517, 899 #### [facility] [place] [address] Database Security Expert: Jensen Johnson MDHematocrit (Bld) [Volume fraction]35.6 %Normal 35.0-45.0Quest DiagnosticsComment on above:Performed By: #### 1759, , 7599, 65, 899 #### [facility] [address], [address] [place] [address] Database Security Expert: Jensen Johnson MDHemoglobin (Bld) [Mass/Vol]10.9 g/dLLow 11.7-15.5Quest DiagnosticsComment on above:Performed By: #### 1759, , 7599, 65, 899 #### [facility] [address], [address] [place] [address] Database Security Expert: Jensen Johnson MDMCH (RBC) [Entitic mass]28.2 xhNoymdr16.0-33.0 Quest DiagnosticsComment on above:Performed By: #### 1759, , 7599, 65, 899 #### [facility] [address], [address] [place] [address] Database Security Expert: Jensen BELLAMYCHC (RBC) [Mass/Vol]30.6 g/dLLow32.0-36.0 Quest DiagnosticsComment on above:Result Comment: For adults, a slight decrease in the calculated MCHC value (in the range of 30 to 32 g/dL) is most likely not clinically significant; however, it should be interpreted with caution in correlation with other red cell parameters and the patient's clinical condition.Performed By: #### 175, , 7599, 65, 899 #### [facility] [place] [address] Database Security Expert: Jensen Johnson MDMCV (RBC) [Entitic vol]92.2 bNRoxqkl66.0-100.0 Quest DiagnosticsComment on above:Performed By: #### 1759, , 7599, 65, 899 #### [facility] [address], [address] [place] [address] Database Security Expert: Jensen Johnson MDPlatelet mean volume (Bld) [Entitic vol]11.3 fLNormal7.5-12.5Quest DiagnosticsComment on above:Performed By: #### 1759, 12328, 7600, 6517, 899 #### [facility] of [address], [address] [place] [address] Database Security Expert: Jensen Johnson [facility] ([facility]) [#/Vol]211 10*3/uLNormal 140-400Quest DiagnosticsComment on above:Performed By: #### 1759, 12646, 7600, 6517, 899 #### [facility] of [address], [address] [place] [address] Database Security Expert: Jensen Johnson [facility] ([facility]) [#/Vol]3.86 10*6/uLNormal3.80-5.10 Quest DiagnosticsComment on above:Performed By: #### 1759, 95312, 7600, 6517, 899 #### [facility] of [address], [address] [place] [address] Database Security Expert: Jensen Johnson MDGENEV[facility] ([facility]) [#/Vol]9.7 10*3/uLNormal3.8-10.8 Quest DiagnosticsComment on above:Performed By: #### 1759, 90993, 7600, 6517, 899 #### [facility] of [address], [address] [place] [address] Database Security Expert: Jensen Johnson MDCOMPREHENSIVE METABOLIC PANELon 07-21-2025 Albumin [Mass/Vol]4.3 g/dLNormal3.6-5.1Quest DiagnosticsComment on above: Performed By: #### 1759, 27670, 7600, 6517, 899 #### [facility] [place] [address] Database Security Expert: Jensen Johnson MDAlbumin/Globulin [Mass ratio]1.7 {ratio}Normal 1.0-2.5Quest DiagnosticsComment on above:Performed By: #### 1759, 27501, 7600, 6517, 899 #### [facility] of [address], [address] [place] [address] Database Security Expert: Jensen Johnson MDALP [Catalytic activity/Vol]109 U/LNormal 37-153Quest DiagnosticsComment on above:Performed By: #### 1759, 90962, 7600, 6517, 899 #### [facility] of [address], [address] [place] [address] Database Security Expert: Jensen Johnson MDALT [Catalytic activity/Vol]13 U/LNormal6-29 Quest DiagnosticsComment on above:Performed By: #### 1759, 38478, 7599, 6517, 899 #### [facility] of [address], [address] [place] [address] Database Security Expert: Jensen Johnson MDAST [Catalytic activity/Vol]14 U/OVcaahd20-72 Quest DiagnosticsComment on above:Performed By: #### 1759, 11449, 7599, 6517, 899 #### [facility] [place] [address] Database Security Expert: Jensen Johnson MDBilirubin [Mass/Vol]0.3 mg/dLNormal0.2-1.2 Quest DiagnosticsComment on above:Performed By: #### 1759, 95244, 7599, 6517, 899 #### [facility] [place] [address] Database Security Expert: Jensen Johnson MDCalcium [Mass/Vol]9.2 mg/dLNormal8.6-10.4Quest DiagnosticsComment on above:Performed By: #### 1759, 77857, 7599, 6517, 899 #### [facility] [place] [address] Database Security Expert: Jensen Johnson MDChloride [Moles/Vol]101 mmol/GQihaqg31-496 Quest DiagnosticsComment on above:Performed By: #### 1759, 01834, 760, 6517, 899 #### [facility] [place] [address] Database Security Expert: Jensen Johnson MDCO2 [Moles/Vol]18 mmol/FIsf18-74Ucqqw DiagnosticsComment on above:Performed By: #### 1759, 42369, 7600, 6517, 899 #### [facility] [place] [address] Database Security Expert: Jensen BUSTOSreatinine [Mass/Vol]1.52 mg/dLHigh0.60-1.00 Quest DiagnosticsComment on above:Performed By: #### 1759, 16578, 0, 6517, 899 #### [facility] [place] [address] Database Security Expert: Jensen Johnson MDGFR/1.73 sq M.predicted among non-blacks MDRD (S/P/Bld) [Vol rate/Area]36 mL/min/{1.73_m2}Low> OR = 60Quest DiagnosticsComment on above:Performed By: #### 1759, 55225, 0, 6517, 899 #### [facility] [place] [address] Database Security Expert: Jensen Johnson MDGlobulin (S) [Mass/Vol]2.5 g/dLNormal1.9-3.7 Quest DiagnosticsComment on above:Performed By: #### 1759, 18280, 7600, 6517, 899 #### [facility] [place] [address] Database Security Expert: Jensen Johnson MDGlucose [Mass/Vol]258 mg/qPPfol41-20Bxyvb DiagnosticsComment on above:Result Comment: Fasting reference interval For someone without known diabetes, a glucose value >125 mg/dL indicates that they may have diabetes and this should be confirmed with a follow-up test.Performed By: #### 1759, 08198, 7600, 6517, 899 #### [facility] of [address], [address] [place] [address] Database Security Expert: Jensen Johnson MDPotassium [Moles/Vol]5.3 mmol/LNormal3.5-5.3 Quest DiagnosticsComment on above:Performed By: #### 1759, 97748, 7600, 6517, 899 #### [facility] of [address], [address] [place] [address] Database Security Expert: Jensen Johnson MDProtein [Mass/Vol]6.8 g/dLNormal6.1-8.1Quest DiagnosticsComment on above:Performed By: #### 1759, 19924, 7600, 6517, 899 #### [facility] of [address], [address] [place] [address] Database Security Expert: Jensen Johnson MDSodium [Moles/Vol]137 mmol/DNoxhzf811-239Geqvk DiagnosticsComment on above:Performed By: #### 1759, 40262, 7600, 6517, 899 #### [facility] of [address], [address] [place] [address] Database Security Expert: Jensen Johnson MDUrea nitrogen [Mass/Vol]57 mg/dLHigh7-25Quest DiagnosticsComment on above:Performed By: #### 1759, 21528, 7600, 6517, 899 #### [facility] [place] [address] Database Security Expert: Jensen Johnson MDUrea nitrogen/Creatinine [Mass ratio]38 mg/mg High6-22Quest DiagnosticsComment on above:Performed By: #### 1759, 95509, 7600, 6517, 899 #### [facility] [place] [address] Database Security Expert: Jensen Johnson MDLIPID PANEL, STANDARD 17-58-3963Bnuyhfxauev [Mass/Vol]187 mg/dLNormal<200Quest DiagnosticsComment on above:Order Comment: FASTING:YES FASTING: YESPerformed By: #### 1759, 73123, 7600, 6517, 899 #### [facility] [address], [address] [place] [address] Database Security Expert: Jensen BUSTOSholesterol in HDL [Mass/Vol]32 mg/dLLow> OR = 50Quest DiagnosticsComment on above:Order Comment: FASTING:YES FASTING: YESPerformed By: #### 1759, 80180, 7600, 6517, 899 #### [facility] [address], [address] [place] [address] Database Security Expert: Jensen BUSTOSholestheidi.total/Cholesterol in HDL [Mass ratio]5.8 {ratio}High<5.0Quest DiagnosticsComment on above:Order Comment: FASTING:YES FASTING: YESPerformed By: #### 1759, 07439, 7600, 6517, 899 #### [facility] [address], [address] [place] [address] Database Security Expert: Jensen Johnson MDLDL-CHOLESTEROLNormalQuest DiagnosticsComment on above:Order Comment: [...] LDL-C. Antonio QIU et al. LAURY. 2013;310(19): 7936-0677 (http://education.[employer].Familio/faq/QIJ668)Performed By: #### 1759, 89689, 7600, 6517, 899 #### [facility] [address], [address] [place] [address] Database Security Expert: Jensen NEW HDL YPSSCBKSYOA939 mg/dL (calc)High<130 Quest DiagnosticsComment on above:Order Comment: FASTING:YES FASTING: YESResult Comment: For patients with diabetes plus 1 major ASCVD risk factor, treating to a non-HDL-C goal of <100 mg/dL (LDL-C of <70 mg/dL) is considered a therapeutic option.Performed By: #### 1759, 52365, 7600, 6517, 899 #### [facility] [address], [address] [place] [address] Database Security Expert: Jensen Johnson MDTriglyceride [Mass/Vol]863 mg/dLHigh<150Quest DiagnosticsComment on [...] of Clin. Lipidol. 2015;9:129-169.Performed By: #### 1759, 71296, 7600, 6517, 899 #### [facility] [address], [address] [place] [address] Database Security Expert: Jensen Baez 96-72-2095KLU Qn1.88 m[IU]/LNormal 0.40-4.50Quest DiagnosticsComment on above:Performed By: #### 1759, 54723, 7600, 6517, 899 #### [facility] [address], [address] [place] [address] Database Security Expert: Jensen Johnson MDHbA1c (Bld) [Mass fraction]on 07-20-2025 Interpretation and review of laboratory resultsAbnoMUSC Health Orangeburg HealthcareLaboratory - Hematology and Cell countson 11-26-7758PxV9u (Bld) [Mass fraction]8 %NOMS HealthcareBasic Metabolic Panelon 51-50-4780NXU/1.73 sq M.predicted MDRD (S/P/Bld) [Vol rate/Area]33.025 mL/min/{1.73_m2}NormalThe Formerly [facility] Physician GroupComment on above:Performed By: #### BMP, CBC #### [facility] [address] [place] [address] USABasic metabolic 1998 panelon 93-37-2851Tzacr gap [Moles/Vol]14.3 mmol/L6.0 - 15.0NOMS HealthcareCalcium [Mass/Vol]8.7 mg/dL8.6 - 10.3 mg/dLNOMS HealthcareChloride [Moles/Vol]100 mmol/L98 - 107 mmol/LNOMS HealthcareCO2 [Moles/Vol]23.8 mmol/L21.0 - 31.0 mmol/LNOMS HealthcareCreatinine (U) [Mass/Vol]1.65 mg/dLHigh0.60 - 1.20 mg/dLNOMS HealthcareGFR/1.73 sq M.predicted MDRD (S/P/Bld) [Vol rate/Area]33.025 mL/min/{1.73_m2}[facility] Glucose [Mass/Vol]225 mg/aCDqum01 - 100 mg/dLNODC HealthcareComment on above: Random Glucose Reference Range is dependent on time and content of last meal. Glucose of more than 200 mg/dL in a nonstressed, ambulatory subject supports the diagnosis of Diabetes Mellitus. ADA recommended reference range Interpretation and review of laboratory resultsAbnormalNOMS HealthcarePotassium [Moles/Vol]5.1 mmol/L3.5 - 5.1 mmol/LNOMS HealthcareSodium [Moles/Vol]133 mmol/L Iin614 - 145 mmol/LNOMS HealthcareUrea nitrogen [Mass/Vol]51 mg/dLHigh7 - 25 mg/dLNODC HealthcareNOMS HealthcareBasophils [#/volume] in Blood by Automated countOrdered By: Alexis Gilmore on 26-68-0592Gcryfghhk (Bld) [#/Vol]0.1 10*3/uL Normal0.0-0.2FUniversity Hospitals TriPoint Medical CenterComment on above:Result Comment: PERFORMED BY: [facility] [address] [facility] [place] [address] PATHOLOGIST IMPORT/EXPORT CLERK ARCHIE MENDOZA M.D.Performed By: #### BMP, CBC #### [facility] [address] [place] [address] USABasophils/100 leukocytes in Blood by Automated count Ordered By: Alexis Gilmore on 09-75-2956Reeianrvy/100 WBC (Bld)0.8 %Normal. [facility] County Community HospitalComment on above:Performed By: #### BMP, CBC #### [facility] [address] [place] [address] USACBC W Auto Differential panel (Bld)on 98-78-6830Yyzkynabb (Bld) [#/Vol]0.1 10*3/uL0.0 - 0.2 10*3/uLNOMS HealthcareBasophils/100 WBC Manual cnt (Syn fld)0.8 %.[facility] NorthEosinophils (Bld) [#/Vol]0.3 10*3/uL0.0 - 0.45 10*3/uLNOMS HealthcareEosinophils/100 WBC Manual cnt (Syn fld)3.1 %.[facility] NorthErythrocyte distribution width (RBC) [Ratio]14.5 %11.9 - 15.3 %[facility] NorthHematocrit (Bld) [Volume fraction]32 %Low34.0 - 46.4 %[facility] Hemoglobin (Bld) [Mass/Vol]10.9 g/dLLow11.8 - 15.4 g/dLCox North Interpretation and review of laboratory resultsAbnormPenn Highlands Healthcare Lymphocytes (Bld) [#/Vol]3.4 10*3/uL1.00 - 4.8 10*3/uLNODC Healthcare Lymphocytes/100 WBC Manual cnt (Syn fld)35.4 %.[facility] CenterH (RBC) [Entitic mass]28.6 pg24.7 - 34.3 pgSaint John's Regional Health CenterHC (RBC) [Mass/Vol]34.1 g/dL32.0 - 35.0 g/dLSaint John's Regional Health CenterV (RBC) [Entitic vol]84 fL80 - 100 fLCox North Monocytes (Bld) [#/Vol]1 10*3/uLHigh0.0 - 0.8 10*3/uLCox North Monocytes+Macrophages/100 WBC Manual cnt (Syn fld)10.1 %.NOMS [...] Serum or PlasmaOrdered By: Alexis Gilmore on 49-21-2842Pechawm [Mass/Vol]8.7 mg/dLNormal8.6-10.3FUniversity Hospitals TriPoint Medical CenterComment on above:Result Comment: PERFORMED BY: [place] [address] PATHOLOGIST IMPORT/EXPORT CLERK ARCHIE MENDOZA M.D.Performed By: #### BMP, CBC #### [facility] [address] [place] [address] USACarbon dioxide, total [Moles/volume] in Serum or Plasma Ordered By: Alexis Gilmore on 57-95-3464YD7 [Moles/Vol]23.8 mmol/LNormal 21.0-31.0Mer[facility] County Community HospitalComment on above:Performed By: #### BMP, CBC #### [facility] [address] [place] [address] USAChloride [Moles/volume] in Serum or PlasmaOrdered By: Alexis Gilmore on 78-00-2554Krycbcib [Moles/Vol]100 mmol/QAudrrb66-191NhgeplrntMercer County Community HospitalComment on above:Performed By: #### BMP, CBC #### [facility] [address] [place] [address] USAComplete Blood Count Auto Diffon 90-75-2133Nwzf Corpuscular HGB Conc34.1 g/gERcwlhd78.0-35.0The [facility] Physician GroupComment on above:Performed By: #### BMP, CBC #### [facility] [address] [place] [address] USANRBC%0.1 /100{WBC}Normal0-0.5The [facility] Physician Group Comment on above:Performed By: #### BMP, CBC #### [place] [address] USAWhite Blood Count9.5 [CFU]/mLNormal3.8-11.6The [facility] Physician [facility] Center Of Smith CountyComment on above:Performed By: #### BMP, CBC #### [facility] [address] [place] [address] USACreatinine [Mass/volume] in Serum or PlasmaOrdered By: Alexis Gilmore on 76-75-4674Prbjillyfa [Mass/Vol]1.65 mg/dLHigh0.60-1.20 [facility] Community HospitalComment on above:Performed By: #### BMP, CBC #### [place] [address] USAECG 12 lead ECGon 25-74-5070ONW 12 lead ECGPROVIDENCE [place] [address] Electrocardiograph Report Signed Patient: Diann Patel MR#: [id number] 525 : 1955 Acct:[id number] Age/Sex: 70 / F ADM Date: 07/19/25 Loc: PS Room: Type: [facility] Attending Dr: Alexis Gilmore DPM Ordering [...] in Anterolateral leads Confirmed by Valente Ramirez ([id number]) on 07/20/2025 8:47:41 AM Referred By: Electronically Signed By: Valente Ramirez Transcribed By: MUS Signed By Valente Ramirez MD 07/20/25 0847[facility] Physician GroupEosinophils [#/volume] in Blood by Automated countOrdered By: Alexis Gilmore on 82-89-4873Knryubthuhe (Bld) [#/Vol]0.3 10*3/uLNormal0.0-0.45Mer[facility] County Community HospitalComment on above:Performed By: #### BMP, CBC #### [facility] [address] [place] [address] USAEosinophils/100 leukocytes in Blood by Automated count Ordered By: Alexis Gilmore on 61-56-2824Ptyueievhfa/100 WBC (Bld)3.1 %Normal. [facility] Community HospitalComment on above:Performed By: #### BMP, CBC #### [facility] [address] [place] [address] USAErythrocyte distribution width [Ratio] by Automated count Ordered By: Alexis Gilmore on 09-64-0722Iawrgivkrmd distribution width (RBC) [Ratio]14.5 %Tdkzjb54.9-15.3FUniversity Hospitals TriPoint Medical CenterComment on above: Performed By: #### BMP, CBC #### [facility] [address] [place] [id number] USAErythrocytes [#/volume] in Blood by Automated countOrdered By: Alexis Gilmore on 78-33-7850JZY (Bld) [#/Vol]3.82 10*6/uLNormal3.60-5.00 [facility] HospitalComment on above:Performed By: #### BMP, CBC #### [facility] [address] [place] [id number] USAGlomerular filtration rate [Volume Rate/Area] in Serum, Plasma or Blood by CreatinineOrdered By: Alexis Gilmore on 97-32-2351Trlgfexkam filtration rate [Volume Rate/Area] in Serum, Plasma or Blood by Nvsnutoomx29.025 mL/MinMercer County Community HospitalGlucose [Mass/volume] in Serum or Plasma Ordered By: Alexis Gilmore on 85-30-8642Xczgytz [Mass/Vol]225 mg/dYRyqd13-481 [facility] HospitalComment on above:ADA recommended reference rangeRandom Glucose [...] reference rangePerformed By: #### BMP, CBC #### [place] [address] USAHematocrit [Volume Fraction] of Blood by Automated count Ordered By: Alexis Gilmore on 88-18-6017Ojprbjfexo (Bld) [Volume fraction]32.0 % Low34.0-46.4FUniversity Hospitals TriPoint Medical CenterComment on above:Performed By: #### BMP, CBC #### [place] [address] USAHemoglobin [Mass/volume] in BloodOrdered By: Alexis Gilmore on 20-97-5778Infnqnaxro (Bld) [Mass/Vol]10.9 g/dLLow11.8-15.4FUniversity Hospitals TriPoint Medical CenterComment on above:Performed By: #### BMP, CBC #### [place] [address] USALeukocytes [#/volume] corrected for nucleated erythrocytes in Blood by Automated counOrdered By: Alexis Gilmore on 74-70-8393ORG corrected for nucl RBC Auto (Bld) [#/Vol]9.5 10*3/uL3.8-11.6FUniversity Hospitals TriPoint Medical CenterLeukocytes [#/volume] in Blood by Automated countOrdered By: Alexis Gilmore on 93-25-9847TVQ (Bld) [#/Vol]9.5 10*3/uLNormal3.8-11.6FUniversity Hospitals TriPoint Medical CenterComment on above:Performed By: #### BMP, CBC #### [facility] [address] [place] [address] USALymphocytes [#/volume] in Blood by Automated countOrdered By: Alexis Gilmore on 06-63-6044Ghsvwpoysit (Bld) [#/Vol]3.4 10*3/uLNormal 1.00-4.8[facility] Community HospitalComment on above:Performed By: #### BMP, CBC #### [facility] [address] [place] [id number] USALymphocytes/100 leukocytes in Blood by Automated count Ordered By: Alexis Gilmore on 47-67-1713Exhxjhruhxr/100 WBC (Bld)35.4 %Normal. [facility] Community HospitalComment on above:Performed By: #### BMP, CBC #### [facility] [address] [place] [id number] [facility] [Entitic mass] by Automated countOrdered By: Alexis Gilmore on 81-97-7579QDD (RBC) [Entitic mass]28.6 iaOrfzfh93.7-34.3FUniversity Hospitals TriPoint Medical CenterComment on above:Performed By: #### BMP, CBC #### [facility] [address] [place] [id number] [facility] Auto (RBC) [Mass/Vol]Ordered By: Alexis Gilmore on 41-83-6617QYVZ (RBC) [Mass/Vol]34.1 g/dL32.0-35.0Mer[facility] Community HospitalMCV [Entitic volume] by Automated countOrdered By: Alexis Gilmore on 28-37-1743LWU (RBC) [Entitic vol]84.0 nEUttngb48-105NaumncpxwMercer County Community HospitalComment on above:Performed By: #### BMP, CBC #### [facility] [address] [place] [address] USAMonocytes [#/volume] in Blood by Automated countOrdered By: Alexis Gilmore on 99-50-7957Rpohhcflw (Bld) [#/Vol]1.0 10*3/uLHigh0.0-0.8 [facility] HospitalComment on above:Performed By: #### BMP, CBC #### [facility] [address] [place] [id number] USAMonocytes/100 leukocytes in Blood by Automated count Ordered By: Aleixs Gilmore on 27-60-8815Vswjluwds/100 WBC (Bld)10.1 %Normal. [facility] Community HospitalComment on above:Performed By: #### BMP, CBC #### [place] [address] USANeutrophils [#/volume] in Blood by Automated countOrdered By: Alexis Gilmore on 84-17-1949Xwfzjyizpxy (Bld) [#/Vol]4.8 10*3/uLNormal 1.8-7.7FUniversity Hospitals TriPoint Medical CenterComment on above:Performed By: #### BMP, CBC #### [facility] [address] [place], [place] [address] USANeutrophils/100 leukocytes in Blood by Automated count Ordered By: Alexis Gilmore on 76-12-7724Gqbqecizbxt/100 WBC (Bld)50.6 %Normal. [facility] HospitalComment on above:Performed By: #### BMP, CBC #### [facility] [address] [place], [place] [address] USANo Panel InformationOrdered By: Alexis Gilmore on 18-57-4281Jjhwlcvs Creatinine Clearance (ChemN/AFUniversity Hospitals TriPoint Medical CenterNucleated erythrocytes [Presence] in Blood by Automated countOrdered By: Alexis Gilmore on 72-48-7032Stqfltcyn RBC Auto Ql (Bld)0.1 /100{WBC}0-0.5 [facility] HospitalPlatelet mean volume [Entitic volume] in Blood by Automated countOrdered By: Alexis Gilmore on 00-39-4968Rtlycuex mean volume (Bld) [Entitic vol]9.0 fLNormal6.3-10.7FUniversity Hospitals TriPoint Medical CenterComment on above:Performed By: #### BMP, CBC #### [facility] [address] [place] [address] USAPlatelets [#/volume] in Blood by Automated countOrdered By: Alexis Gilmore on 95-15-3755Pdihittsz (Bld) [#/Vol]215 10*3/aJEmwyqg897-143 [facility] HospitalComment on above:Performed By: #### BMP, CBC #### [facility] [address] [place] [address] USAPotassium [Moles/volume] in Serum or PlasmaOrdered By: Alexis Gilmore on 99-05-1569Uzqpimady [Moles/Vol]5.1 mmol/LNormal3.5-5.1 [facility] HospitalComment on above:Performed By: #### BMP, CBC #### [facility] [address] [place] [address] USASerum or plasma anion gap determinationOrdered By: Alexis Gilmore on 07-65-7786Wkopp gap [Moles/Vol]14.3 mmol/LNormal6.0-15.0 [facility] HospitalComment on above:Performed By: #### BMP, CBC #### [facility] [address] [place] [address] USASodium [Moles/volume] in Serum or PlasmaOrdered By: Alexis Gilmore on 51-01-1059Ivuhtd [Moles/Vol]133 mmol/BFsm389-194HknnugmmtMercer County Community HospitalComment on above:Performed By: #### BMP, CBC #### [facility] [address] [place] [address] USAUrea nitrogen [Mass/volume] in Serum or PlasmaOrdered By: Alexis Gilmore on 98-07-5424Xkzh nitrogen [Mass/Vol]51 mg/dLHigh7-25[facility] HospitalComment on above:Performed By: #### BMP, CBC #### [place] [address] USAPATHOLOGY REQUEST FOR LAB CORPon 00-93-6077LKBQVNRHD REQUEST FOR LAB [facility] for Children - GreenvilleComment on above:See report. Scanned copy available in EMR.GI SPECIMENAscension Calumet Hospitalillary blood glucose measurement by glucometer (mass/volume)Ordered By: Dale Fox on 06-09-2025 Glucose [Mass/Vol]269 mg/dLNoHocking Valley Community HospitalComment on above:Random Glucose Reference Range is [...] Point of Care testing ,GLUCOSE POCT GLUCOMETERSon 71-66-2580DEPROYF5Tga0: Cleaned MeterCox North Glucose [Mass/Vol]269 mg/dLCox NorthComment on above:Random Glucose Reference Range is dependent on time and content of last meal. Glucose of more than 200 mg/dL in a nonstressed, ambulatory subject supports the diagnosis of Diabetes Mellitus. NOMS HealthcareGlucose Poct Glucometerson 96-78-2131Xkkfqzn3Agh5: Cleaned Meter NormalThe Formerly [facility] Hospital Physician GroupComment on above:Result Comment: PERFORMED BY: [place] [address] PATHOLOGIST IMPORT/EXPORT CLERK ARCHIE MENDOZA M.D.Performed By: #### GLULS #### Point of Care testing ,No Panel InformationOrdered By: Dale Fox on 67-41-6448Vrcbfeksytdek Pathology TestSee [facility] Medina HospitalComment on above:See report. Scanned copy available in EMR.Bedside Glucose CommentGlu2: cleaned meter [facility] HospitalPathology Request for Lab Corpon 06-09-2025 Pathology Request for Lab [facility] Physician GroupComment on above:Order Comment: GI SPECIMENResult Comment: See report. Scanned copy available in EMR. PERFORMED BY: [facility] [place] [id number] PATHOLOGIST IMPORT/EXPORT CLERK ARCHIE MENDOZA M.D.Performed By: #### PATH TO [facility] #### [place] [id number] USAOffice Visiton 90-34-1424Tezzbo-up [id number] Diann Patel 1955 F Date Provider Department Center 05/30/2025 VALENTE BALTAZAR CONCEPCIÓN [place] Family History Problem Relation Age of Onset Diabetes Mother Cancer Mother Heart disease Father Alcohol abuse Brother Diabetes Brother Family Status - Relation Status Age at Mother Father Sister Brother Level of Service:47459 DE OFFICE/OUTPATIENT ESTABLISHED MOD [facility] 53-99-9318Istuco-up visit [id number] Diann Patel 1955 F Date Provider Department Center 04/26/2025 85779-SLNMQZBACGET [facility] Medical Pavi Family History Problem Relation Age of Onset Diabetes Mother Cancer Mother Heart disease Father Alcohol abuse Brother Diabetes Brother Family Status - Relation Status Age at Mother Father Sister Brother Level of Service:97059 DE OFFICE/OUTPATIENT NEW MODERATE MDM 45 MINUTES Reason for Visit and Comments: New Patient [632] Anemia [951564]NormalMercy Health St. Anne HospitalHbA1c (Bld) [Mass fraction]on 39-11-9278Kgzdxwclzjayop and review of laboratory resultsAbnormal [facility] HospitalLaboratory - Hematology and Cell countson 81-87-5833NzR8s (Bld) [Mass fraction]7.8 %[place] [address]on Regarding carotid duplex result from 03/07/2025: MD Maria Antonia Pisano MA Carotid ultrasound showed stable disease. Follow up as planned. Patient informed.NormalMercy Health St. Anne HospitalMammography report Ordered By: Manjula Flannery on 08-95-3453Kboctyqleh imaging studyPROMEDICA BAY [facility] [address] [place] [address] [address] [place] [address] Mammography Report Signed Patient: Diann Patel MR#: [id number] : 1955 Acct:[id number] Age/Sex: 69 / F Adm Date: 5 Loc: [place] Room: Type: [facility] Attending Dr: Champ Bell II, MD Ordering Provider: Champ Bell II, MD Date of Service: 03/10/25 Procedure(s): MM special view RT w/CAD; US breast RT limited Accession Number(s): ([id number]) MM/MM special view RT w/CAD: ABN MAMM ([id number]) US/US breast RT limited: R92.8 Copies to: [...] Flannery M.D. 03/10/2025 5:08 PM Dictation Location: [facility] Dictated By: Manjula Flannery MD 03/10/25 1515 Signed By: 03/10/25 2080 [facility] Work Phone: us breast RT limitedon 73-77-4628MH breast RT limited [facility] [address] [place] [address] Mammography Report Signed Patient: Diann Patel MR#: [id number] : 1955 Acct:[id number] Age/Sex: 69 / F Adm Date: 03/10/25 Loc: [place] Room: Type: [facility] Attending Dr: Champ Bell II, MD Ordering Provider: Champ Bell II, MD Date of Service: 03/10/25 Procedure(s): MM special view RT w/CAD; US breast RT limited Accession Number(s): ([id number]) MM/MM special view RT w/CAD: ABN MAMM ([id number]) US/US breast RT limited: R92.8 Copies to: [...] Flannery M.D. 03/10/2025 5:08 PM Dictation Location: [facility] Dictated By: Manjula Flannery MD 03/10/25 1514 Signed By: 03/10/[address] [place] [address] Physician Group TOMOSYNTHESIS SCREENING BIon 78-13-9626[place] [address] Mammography Report Signed Patient: DIANN PATEL MR#: [id number] : 1955 Acct:[id number] Age/Sex: 69 / F ADM Date: 03/03/25 Loc: MAMMO Attending Dr: HCAMP BELL Ordering Physician: CHAMP BELL Results: Date of Service: 03/03/25 Follow Up: Procedure(s): MM tomosynthesis screening BI Accession Number(s): [id number] cc: CHAMP BELL Patient Name: DIANN PATEL MR#: [id number] : 1955 Exam Date: 03/03/2025 Ordering Doctor: [...] ovarian cancer at age 49. LOCATION: [facility] BREAST COMPOSITION: There are scattered areas [...] Signed By: 03/03/25 1635 DD/ 1634 TD/TT: Ios Developer:TBHRadiology, Radiologist, MD - 03/03/2025 [place] [address] Mammography Report Signed Patient: DIANN PATEL MR#: [id number] : 1955 Acct:[id number] Age/Sex: 69 / F ADM Date: 03/03/25 Loc: MAMMO Attending Dr: CHAMP BELL Ordering Physician: CHAMP BELL Results: Date of Service: 03/03/25 Follow Up: Procedure(s): MM tomosynthesis screening BI Accession Number(s): [id number] cc: BELLCHRYSTALCHAMP Patient Name: DIANN PATEL MR#: [id number] : 1955 Exam Date: 03/03/2025 Ordering Doctor: [...] ovarian cancer at age 49. LOCATION: [facility] BREAST COMPOSITION: There are scattered areas [...] Signed By: 03/03/25 163 DD/ 33 TD/TT: Ios Developer: PRIYANKA HealthcareRadiology Study observation (narrative)PRIYANKA [facility] TOMOSYNTHESIS SCREENING BIOrdered By: Radiologist Radiology on 48-61-1336VPAW [employer] Work Phone: Office Visiton 36-41-2651Pldunz-up [id number] Diann Patel 1955 Provider Department Center 03/02/2025 VALENTE BALTAZAR CONCEPCIÓN Edin Norma Family History Problem Relation Age of Onset Diabetes Mother Cancer Mother Heart disease Father Alcohol abuse Brother Diabetes Brother Family Status - Relation Status Age at Mother Father Sister Brother Level of Service:38685 DE OFFICE/OUTPATIENT ESTABLISHED MOD MDM [facility]36on 70-67-027555Hmcucybkk date: 02/22/25 Call date: 02/23/25 Spoke with: patient HF Follow-up date: 02/25/25 Med reconciliation completed: pt declined Questions/Concerns: Pt denied any SOB or CP. Pt declined to review home meds stating she just reviewed them with someone from her PCP office. Pt is monitoring daily weights and is aware of her follow up telemed visit. No questions or concerns at this time.[facility] [place] [facility] SouthDocumentationon 02-23-2025 [id number] DakotaawildaPancho arringtonjose Car 1955 Provider Department Center 02/23/2025 DIPAK YEBOAH C VASC LAB SC HeartVAS Family History Problem Relation Age of Onset Diabetes Mother Cancer Mother Heart disease Father Alcohol abuse Brother Diabetes Brother Family Status - Relation Status Age at Mother Father Brother Reason for Visit and Comments: HF inpatient satisfaction survey sent. [Other][facility] [place] [facility] SouthTelephoneon [id number] Diann Patel Josep 1955 Provider Department Center 02/23/2025 DIPAK YEBOAH HVC VASC LAB SC HeartVAS Family History Problem Relation Age of Onset Diabetes Mother Cancer Mother Heart disease Father Alcohol abuse Brother Diabetes Brother Family Status - Relation Status Age at Mother Father Brother Reason for Visit and Comments: HF post discharge call. [Other][facility] [place] [facility]3094-80-781968Kctzdw went bedside and talked with patient about discharge planing and how patient qualified for 2 L nc at night. Patient stated she has no preference of home health care company and is agreeable to for jingle writer to set home oxygen through [employer]. Hydroelectric Plant Structural Engineer called and talked with Timothy who is with [employer]. Hydroelectric Plant Structural Engineer was told to fax over clinicals and to tell patient to call when she leaves the hospital. Hydroelectric Plant Structural Engineer faxed over Clinicals to [employer] at [phone]. Hydroelectric Plant Structural Engineer went bedside and notified/educated the patient on need to call health care solutions as soon as she leaves the hospital. Hydroelectric Plant Structural Engineer provided [employer] phone number to patient and placed it on the AVS. Patient stated she understands and has no other questions at this time.[facility] [place] [facility]30The patient is Moderately Unstable - Medium risk [...] Assess patient???s ability to void and empty bladderNormalUniversMercy Health Defiance HospitalBASIC METABOLIC PANELon 19-31-6979Mstbh gap [Moles/Vol]12 mmol/LNormal7-20UnSt. Rita's HospitalComment on above:Performed By: #### [id number] #### [facility] ([facility]) [address] [place], [place] [address]Yagurlk [Mass/Vol]9.3 mg/dLNormal8.6-10.3UnSt. Rita's HospitalComment on above:Performed By: #### [id number] #### [facility] ([facility]) [address] [place], [place] [address]Lawmbcsk [Moles/Vol]98 mmol/GRufazr97-726UjutwspuxrSt. Rita's HospitalComment on above:Performed By: #### [id number] #### [facility] ([facility]) [address] [place], [place] [address]ZA1 [Moles/Vol]30 mmol/LStzujm09-85TdtzmeyflcSt. Rita's HospitalComment on above:Performed By: #### [id number] #### [facility] ([facility]) [address] [place], [place] [address]Ukoopwpgej [Mass/Vol]1.06 mg/dLNormal0.60-1.20UnSt. Rita's HospitalComment on above:Performed By: #### [id number] #### [facility] ([facility]) [address] [place], [place] [address]CSDTCKVUWR FILTRATION RATE ML/MIN/1.73 SQ M.JLPGQNUBA43.5 mL/min/1.73m*2Low>60.0UnSt. Rita's HospitalComment on above:Result Comment: [facility]???s estimated glomerular filtration rate (eGFR) will [...] affect anyone group of individuals.Performed By: #### [id number] #### [facility] ([facility]) [address] [place], [place] [address]Xcdwswh [Mass/Vol]162 mg/qSFbvy30-663BptjfgsofiSt. Rita's HospitalComment on above:Performed By: #### [id number] #### [facility] ([facility]) [address] [place], [place] [address]Kctbmegwm [Moles/Vol]4.1 mmol/LNormal3.5-5.1UnSt. Rita's HospitalComment on above:Performed By: #### [id number] #### [facility] ([facility]) [address] [place], [place] [address]Pixpkq [Moles/Vol]136 mmol/QMsckdx314-368KjvwxuasdmSt. Rita's HospitalComment on above:Performed By: #### [id number] #### [facility] ([facility]) [address] [place], [place] [address]Fpnz nitrogen [Mass/Vol]45 mg/dLHigh7-25UnSt. Rita's HospitalComment on above:Performed By: #### [id number] #### [facility] ([facility]) [address] [place], [place] [address]WJQL NITROGEN/CREATININE (MASS RATIO) IN SER/PLAS42.5Normal [facility] St. Anne HospitalComment on above:Performed By: #### [id number] #### [facility] ([facility]) [address] [place], [place] [address]XCVLQGIqz 43-36-5525QDKPLVJUwlqf study ordered for OPNormal [facility] St. Anne HospitalCONSULTdischarge planning: to return Home with family Patient [...] at this time - follow up with [facility] on AVSNormalUniversMercy Health Defiance HospitalDocumentationon [id number] DenilsonPancho arringtonjose Car 1955 F Date Provider Department Center 02/22/2025 MARIA VICTORIA MEDINA IMED RX [facility] C Family History Problem Relation Age of Onset Diabetes Mother Cancer Mother Heart disease Father Alcohol abuse Brother Diabetes Brother Family Status - Relation Status Age at Mother Father Brother Reason for Visit and Comments: iMEDS Bedside Medication Delivery and Counseling [Other]NormalUnSt. Rita's HospitalNURSNOTEon 21-82-4852VVSRLKMPInnpaeptp trend reviewed and patient qualifies for 2 liters nocturnal oxygen per nasal cannula per minute d/t CHF. Patient is aware of the benefit and need of oxygen.NormalUnSt. Rita's HospitalPOCT GLUCOSE METER UNSOLICITED RESULTSon 35-32-8276Gvlufbn [Mass/Vol]261 mg/lKBixd35-728MslonowduiSt. Rita's HospitalComment on above:Order Comment: Waived Testing in the ED is performed under the ED CLIA certificate #[id number].Result Comment: marichuy Performed By: #### [id number] ####[facility] ([facility])[address] [place], [place] [address]Zqylxtw [Mass/Vol]169 mg/fJJoso43-435FrqxsafkidSt. Rita's HospitalComment on above:Order Comment: Waived Testing in the ED is performed under the ED CLIA certificate #[id number].Result Comment: [email or web address] Performed By: #### [id number] #### [facility] ([facility]) [address] [place], [place] [address]tn 10-81-801320Riz patient is Moderately Unstable - Medium risk [...] ordered Assess for signs of decreased cardiac outputNoalUniMercy Health30Daily Case Management Update Multidisciplinary rounds have been [...] Question: Reason for PT? Answer: Weakness 02/21/25 0833NormalUniversMercy Health Defiance Hospital30The patient is Moderately Stable - Low [...] functional status, cognitive ability or social support systemNormalUniversMercy Health Defiance HospitalBASIC METABOLIC PANELon 52-00-1262Sjsea gap [Moles/Vol]11 mmol/LNormal7-20UnSt. Rita's HospitalComment on above:Performed By: #### [id number] ####[facility] ([facility])[address] [place], [place] [address]Qkkluhb [Mass/Vol]9.2 mg/dLNormal 8.6-10.3UnSt. Rita's HospitalComment on above:Performed By: #### [id number] ####[facility] ([facility])[address] [place] [id number] [Moles/Vol]100 mmol/AOhguyg72-590QhqfvobrmpSt. Rita's HospitalComment on above:Performed By: #### [id number] ####[facility] ([facility])[address] [place] [id number] [Moles/Vol]29 mmol/JGiekxq74-73MduxbligexSt. Rita's HospitalComment on above:Performed By: #### [id number] ####[facility] ([facility])[address] [place] [id number] [Mass/Vol]0.94 mg/dLNormal 0.60-1.20UnSt. Rita's HospitalComment on above:Performed By: #### [id number] ####[facility] ([facility])[address] [place] [id number] FILTRATION RATE ML/MIN/1.73 SQ M.RZXGJAGTH90.3 mL/min/1.73m*2Normal>60.[address] Anne HospitalComment on above:Result Comment: [facility]???s estimated glomerular filtration rate (eG FR) will [...] group of individuals. Performed By: #### [id number] ####[facility] ([facility])[address] [place] [id number] [Mass/Vol]220 mg/gBKxdd46-859QxxrzvjzxzSt. Rita's HospitalComment on above:Performed By: #### [id number] ####[facility] ([facility])[address] [place] [id number] [Moles/Vol]4.0 mmol/LNormal 3.5-5.1UnSt. Rita's HospitalComment on above:Performed By: #### [id number] ####[facility] ([facility])[address] [place], [place] [address]Fpiway [Moles/Vol]136 mmol/VZrpztc460-167ZbjufbkyboSt. Rita's HospitalComment on above:Performed By: #### [id number] ####[facility] ([facility])[address] [place], [place] [address]Iixa nitrogen [Mass/Vol]42 mg/dLHigh7-25UnSt. Rita's HospitalComment on above:Performed By: #### [id number] ####[facility] ([facility])[address] [place], [place] [address]HOJM NITROGEN/CREATININE (MASS RATIO) IN SER/PLAS44.7NormalUniversMercy Health Defiance HospitalComment on above: Performed By: #### [id number] ####[facility] ([facility])[address] [place], [place] [address]UPZbw 33-76-6482Hvtkkwvkgtm distribution width (RBC) [Ratio]15.3 %High 11.5-15.0UnSt. Rita's HospitalComment on above:Performed By: #### [id number] ####[facility] ([facility])[address] [place] [address] ERYTHROCYTE MEAN CORPUSCULAR HEMOGLOBIN CONCENTRATION (G/DL) BY BYUVIEIXJ60.5 g/dLLow32.0-35.0UnSt. Rita's HospitalComment on above:Performed By: #### [id number] ####[facility] ([facility])[address] [place] [address] Hematocrit (Bld) [Volume fraction]34.1 %Low36.0-45.0UnSt. Rita's HospitalComment on above:Performed By: #### [id number] ####[facility] ([facility])[address] [place], [place] [address]Gqqgpahsun (Bld) [Mass/Vol]10.4 g/dL Low12.0-15.0UnSt. Rita's HospitalComment on above:Performed By: #### [id number] ####[facility] ([facility])[address] [place] [id number] (RBC) [Entitic mass]27.3 caUrofgw35.0-33.0UnSt. Rita's Hospital Comment on above:Performed By: #### [id number] ####[facility] ([facility])[address] [place] [id number] (RBC) [Entitic vol]89.5 gIUueisb45.0-98.[address] Anne HospitalComment on above:Performed By: #### [id number] ####[facility] ([facility])[address] [place] [id number] (10*3/UL) IN BLOOD AUTOMATED [id number] 10*3/vXOrqbpp582-377ZoqgilmvtvSt. Rita's HospitalComment on above:Performed By: #### [id number] ####[facility] ([facility])[address] [place] [id number] (Bld) [#/Vol]3.81 10*6/uLNormal 3.80-5.00UnSt. Rita's HospitalComment on above:Performed By: #### [id number] ####[facility] ([facility])[address] [place] [id number] (Bld) [#/Vol]9.57 10*3/uLNormal4.00-10.60UnSt. Rita's HospitalComment on above:Performed By: #### [id number] ####[facility] ([facility])[address] [place] [id number] GLUCOSE METER UNSOLICITED RESULTSon 85-73-4220Ratkbqb [Mass/Vol]302 mg/rJYumk26-434UbuhyijkxaSt. Rita's HospitalComment on above:Order Comment: Waived Testing in the ED is performed under the ED CLIA certificate #[id number].Result Comment: fnzpihv30Ylftnkdfy By: #### [id number] #### [facility] ([facility]) [address] [place] [id number] [Mass/Vol]246 mg/sMHzxd36-679HlqewrvjkeSt. Rita's HospitalComment on above:Order Comment: Waived Testing in the ED is performed under the ED CLIA certificate #[id number].Result Comment: [email or web address] Performed By: #### [id number] #### [facility] ([facility]) [address] [place] [id number] [Mass/Vol]283 mg/hJWzit41-538NceftotwbkMercy Health St. Anne HospitalComment on above:Order Comment: Waived Testing in the ED is performed under the ED CLIA certificate #[id number].Result Comment: [email or web address] Performed By: #### [id number] #### [facility] ([facility]) [address] [place], [place] [address]Gzoryfo [Mass/Vol]160 mg/sOExgt43-744XtyphiuyioMercy Health St. Anne HospitalComment on above:Order Comment: Waived Testing in the ED is performed under the ED CLIA certificate #[id number].Result Comment: [email or web address] Performed By: #### [id number] #### [facility] ([facility]) [address] [place] [id number] 55-69-934830Qbc patient is Moderately Stable - Low risk [...] and maintained or improved Outcome: ProgressingNormalUniversity of [facility] Children'S Hospital30The patient is Moderately Stable - Low [...] output Monitor cardiac rate and rhythmNormalUniversity of Texas Children'S HospitalAPTTon 21-05-2146IUSMFBNEA PARTIAL THROMBOPLASTIN TIME IN PPP BY COAGULATION ASSAY36.0 JhxrtbnQyta08.0-35.0UnSt. Rita's HospitalComment on above:Order Comment: Waived Testing in the ED is performed under the ED CLIA certificate #[id number].Result Comment: Clinical significance of the APTT is questionable in the presence of heparin.Performed By: #### [id number] #### [facility] ([facility]) [address] [place], [place] [address]DAVBQY BLOOD X 1, STOOLon 48-11-0392LZMUGTFQZM GASTROINTESTINAL PRESENCE IN STOOLNegativeNormalNegative, None DetectedUnSt. Rita's HospitalComment on above:Performed By: #### [id number] #### [facility] ([facility]) [address] [place], [place] [address]ZKSF GLUCOSE METER UNSOLICITED RESULTSon 37-16-3225Ccbwduz [Mass/Vol]247 mg/mEBtra05-548AzqflnqecySt. Rita's HospitalComment on above:Order Comment: Waived Testing in the ED is performed under the ED CLIA certificate #[id number].Result Comment: pxqtyby3Zqrfpdizs By: #### [id number] #### [facility] ([facility]) [address] [place], [place] [address]Plmwrvb [Mass/Vol]189 mg/rFLwst94-261TmnhtcvibfSt. Rita's HospitalComment on above:Order Comment: Waived Testing in the ED is performed under the ED CLIA certificate #[id number].Result Comment: jcantre2 Performed By: #### [id number] #### [facility] ([facility]) [address] [place], [place] [address]Pmtmsaf [Mass/Vol]186 mg/kQEsfm92-632ScivslueknSt. Rita's HospitalComment on above:Order Comment: Waived Testing in the ED is performed under the ED CLIA certificate #[id number].Result Comment: shodges4 Performed By: #### [id number] ####[facility] ([facility])[address] [place] [id number] [Mass/Vol]173 mg/iPYbiu91-573TobhjmxelrSt. Rita's HospitalComment on above:Order Comment: Waived Testing in the ED is performed under the ED CLIA certificate #[id number].Result Comment: shodges4 Performed By: #### [id number] ####[facility] ([facility])[address] [place] [id number] 60-46-817404Iqe patient is Moderately Stable - Low risk [...] facility with appropriate resources Outcome: ProgressingNormalUniversity of [facility] 02-19-2025 ACTIVATED PARTIAL THROMBOPLASTIN TIME IN PPP BY COAGULATION ASSAY37.5 Seconds High25.0-35.0UnSt. Rita's HospitalComment on above:Order Comment: Waived Testing in the ED is performed under the ED CLIA certificate #[id number]. Result Comment: Clinical significance of the APTT is questionable in the presence of heparin.Performed By: #### [id number] #### [facility] ([facility]) [address] [place] [id number] METABOLIC PANELon 41-60-9681Nhqps gap [Moles/Vol]9 mmol/L Normal7-20UnSt. Rita's HospitalComment on above:Performed By: #### [id number] ####[facility] ([facility])[address] [place] [address]Vizmcxe [Mass/Vol]8.3 mg/dLLow8.6-10.3UnSt. Rita's HospitalComment on above:Performed By: #### [id number] ####[facility] ([facility])[address] [place] [id number] [Moles/Vol]106 mmol/EPxkpvt40-215ZgihhlwtzeSt. Rita's HospitalComment on above:Performed By: #### [id number] ####[facility] ([facility])[address] [place] [id number] [Moles/Vol]25 mmol/LNormal 21-31UnSt. Rita's HospitalComment on above:Performed By: #### [id number] ####[facility] ([facility])[address] [place] [id number] [Mass/Vol]1.13 mg/dLNormal0.60-1.20UnSt. Rita's HospitalComment on above:Performed By: #### [id number] ####[facility] ([facility])[address] [place] [id number] FILTRATION RATE ML/MIN/1.73 SQ M.TXWDZHXPJ88.3 mL/min/1.73m*2Low>60.0UnSt. Rita's HospitalComment on above:Result Comment: [facility]???s estimated glomerular filtration rate (eGFR) will [...] anyone group of individuals.Performed By: #### [id number] ####[facility] ([facility])[address] [place] [id number] [Mass/Vol]227 mg/lBIsst01-069EfzcnhyvhtSt. Rita's HospitalComment on above:Performed By: #### [id number] ####[facility] ([facility])[address] [place] [id number] [Moles/Vol]4.4 mmol/L Normal3.5-5.1UnSt. Rita's HospitalComment on above:Performed By: #### [id number] ####[facility] ([facility])[address] [place] [address] Sodium [Moles/Vol]136 mmol/OAilkhw897-480AcgtolzvbvSt. Rita's Hospital Comment on above:Performed By: #### [id number] ####[facility] ([facility])[address] [place] [address]Glbq nitrogen [Mass/Vol]39 mg/dLHigh7-25UnSt. Rita's HospitalComment on above:Performed By: #### [id number] ####[facility] ([facility])[address] [place] [address]RLXV NITROGEN/CREATININE (MASS RATIO) IN SER/PLAS34.5NormalUniversMercy Health Defiance HospitalComment on above:Performed By: #### [id number] ####[facility] ([facility])[address] [place] [id number] 24-53-1859Cftvnktcsdj distribution width (RBC) [Ratio] 16.0 %High11.5-15.0UnSt. Rita's HospitalComment on above:Performed By: #### [id number] ####[facility] ([facility])[address] [place] [address]TSAUKRYACVD MEAN CORPUSCULAR HEMOGLOBIN CONCENTRATION (G/DL) BY AUTOMATED 30.8 g/dLLow32.0-35.0UnSt. Rita's HospitalComment on above: Performed By: #### [id number] ####[facility] ([facility])[address] [place] [id number] (Bld) [Volume fraction]33.4 %Low36.0-45.[address] Anne HospitalComment on above:Performed By: #### [id number] ####[facility] ([facility])[address] [place] [id number] (Bld) [Mass/Vol]10.3 g/dLLow12.0-15.0UnSt. Rita's HospitalComment on above:Performed By: #### [id number] ####[facility] ([facility])[address] [place] [id number] (RBC) [Entitic mass]28.3 kcQoabor07.0-33.0UnSt. Rita's HospitalComment on above:Performed By: #### [id number] ####[facility] ([facility])[address] [place] [id number] (RBC) [Entitic vol] 91.8 fKLiirdy40.0-98.0UnSt. Rita's HospitalComment on above: Performed By: #### [id number] ####[facility] ([facility])[address] [place] [id number] (10*3/UL) IN BLOOD AUTOMATED [id number] 10*3/uLNormal 150-400UnSt. Rita's HospitalComment on above:Performed By: #### [id number] ####[facility] ([facility])[address] [place] [id number] (Bld) [#/Vol]3.64 10*6/uLLow3.80-5.00UnSt. Rita's HospitalComment on above:Performed By: #### [id number] ####[facility] ([facility])[address] [place] [id number] (Bld) [#/Vol]10.27 10*3/uLNormal4.00-10.60UnSt. Rita's HospitalComment on above:Performed By: #### [id number] ####[facility] ([facility])[address] [place] [id number] 02-19-2025 Hemoglobin (Bld) [Mass/Vol]10.5 g/dLLow12.0-15.0UnSt. Rita's HospitalComment on above:Performed By: #### [id number] ####[facility] ([facility])[address] [place] [id number] GLUCOSE METER UNSOLICITED RESULTS on 51-91-9474Nsgkiok [Mass/Vol]280 mg/oWWlkq90-630UwakvmhtwsMercy Health St. Anne HospitalComment on above:Order Comment: Waived Testing in the ED is performed under the ED CLIA certificate #[id number].Result Comment: [email or web address] By: #### [id number] ####[facility] ([facility])[address] [place] [address] Glucose [Mass/Vol]261 mg/lATusg88-737LgcbsyxlbiMercy Health St. Anne HospitalComment on above:Order Comment: Waived Testing in the ED is performed under the ED CLIA certificate #[id number].Result Comment: [email or web address] By: #### [id number] #### [facility] ([facility]) [address] [place], [place] [address]Dqtqnhe [Mass/Vol]241 mg/dYAqtf43-975WjljlyrvnhMercy Health St. Anne HospitalComment on above:Order Comment: Waived Testing in the ED is performed under the ED CLIA certificate #[id number].Result Comment: [email or web address] Performed By: #### [id number] ####[facility] ([facility])[address] [place], [place] [address]Poibtmw [Mass/Vol]246 mg/vTHvrw22-924CiloxehmamMercy Health St. Anne HospitalComment on above:Order Comment: Waived Testing in the ED is performed under the ED CLIA certificate #[id number].Result Comment: [email or web address] Performed By: #### [id number] #### [facility] ([facility]) [address] [place], [place] [address]mb 20-73-185961Bir patient is Moderately Stable - Low risk [...] and behaviors that affect risk of falls [place] fall precautions as indicated by assessment Educate [...] are exacerbated and prevent overall improvement and dischargeNormalUniversMercy Health Defiance Hospital30The patient is Moderately Stable - Low risk of patient condition declining or worsening The patient's goals for the shift include Comfort/Rest The clinical goals for the shift include Stable vital signsNormalUniversWVUMedicine Harrison [facility] 27-77-1278SZEBXHRTK PARTIAL THROMBOPLASTIN TIME IN PPP BY COAGULATION ASSAY57.3 ZkxmldwIqvh16.0-35.0UnSt. Rita's HospitalComment on above:Order Comment: Check aPTT every 6 hours while on heparin infusion, or per protocol.Result Comment: Clinical significance of the APTT is questionable in the presence of heparin.Performed By: #### [id number] #### [facility] ([facility]) [address] [place], [place] [address]DMZZIHRHW PARTIAL THROMBOPLASTIN TIME IN PPP BY COAGULATION ASSAY34.4 RhqtgogDduonr20.0-35.0UnSt. Rita's HospitalComment on above:Order Comment: Waived Testing in the ED is performed under the ED CLIA certificate #[id number].Result Comment: Clinical significance of the APTT is questionable in the presence of heparin.Performed By: #### [id number] #### [facility] ([facility]) [address] [place] [id number] NATRIURETIC PEPTIDEon 87-00-4884Nfxxxgzoyqb peptide B (Bld) [Mass/Vol]336 pg/mLHigh0-100UnSt. Rita's HospitalComment on above:Performed By: #### [id number] ####[facility] ([facility])[address] [place] [id number] METABOLIC PANELon 62-78-2891Ntewl gap [Moles/Vol]13 mmol/LNormal7-20UnSt. Rita's HospitalComment on above:Performed By: #### [id number] #### [facility] ([facility]) [address] [place] [id number] [Mass/Vol]8.2 mg/dLLow8.6-10.3UnSt. Rita's HospitalComment on above:Performed By: #### [id number] #### [facility] ([facility]) [address] [place] [id number] [Moles/Vol]107 mmol/IRluezf40-264UcnqnminnfSt. Rita's HospitalComment on above:Performed By: #### [id number] #### [facility] ([facility]) [address] [place] [id number] [Moles/Vol]22 mmol/CDiujnw97-11HflcbkumunSt. Rita's HospitalComment on above:Performed By: #### [id number] #### [facility] ([facility]) [address] [place], [place] [id number] [Mass/Vol]1.17 mg/dLNormal0.60-1.20UnSt. Rita's HospitalComment on above:Performed By: #### [id number] #### [facility] ([facility]) [address] [place], [place] [address]DGDDXBIGZK FILTRATION RATE ML/MIN/1.73 SQ M.XFNWJLGMO81.2 mL/min/1.73m*2Low>60.0UnSt. Rita's HospitalComment on above:Result Comment: [facility]???s estimated glomerular filtration rate (eGFR) will [...] affect anyone group of individuals.Performed By: #### [id number] #### [facility] ([facility]) [address] [place], [place] [address]Wtpkzip [Mass/Vol]182 mg/gXMmik35-936MykclfoovkSt. Rita's HospitalComment on above:Performed By: #### [id number] #### [facility] ([facility]) [address] [place], [place] [address]Bpqgctdty [Moles/Vol]4.5 mmol/LNormal3.5-5.1UnSt. Rita's HospitalComment on above:Performed By: #### [id number] #### [facility] ([facility]) [address] [place], [place] [address]Toarkz [Moles/Vol]137 mmol/NYcrchu534-526PypzqxywzqSt. Rita's HospitalComment on above:Performed By: #### [id number] #### [facility] ([facility]) [address] [place], [place] [address]Rccx nitrogen [Mass/Vol]40 mg/dLHigh7-25UnSt. Rita's HospitalComment on above:Performed By: #### [id number] #### [facility] ([facility]) [address] [place] [id number] NITROGEN/CREATININE (MASS RATIO) IN SER/PLAS34.2Normal [facility] HospitalComment on above:Performed By: #### [id number] #### [facility] ([facility]) [address] [place] [id number] 01-20-6437Tyeyrgoegza distribution width (RBC) [Ratio]16.1 %High11.5-15.0UnSt. Rita's HospitalComment on above:Performed By: #### [id number] ####[facility] ([facility])[address] [place] [id number] ERYTHROCYTE MEAN CORPUSCULAR HEMOGLOBIN CONCENTRATION (G/DL) BY BXWFWQOKK34.5 g/dLLow32.0-35.0UnSt. Rita's HospitalComment on above:Performed By: #### [id number] ####[facility] ([facility])[address] [place] [id number] Hematocrit (Bld) [Volume fraction]23.9 %Low36.0-45.0UnSt. Rita's HospitalComment on above:Performed By: #### [id number] ####[facility] ([facility])[address] [place] [id number] (Bld) [Mass/Vol]7.3 g/dLLow 12.0-15.0UnSt. Rita's HospitalComment on above:Performed By: #### [id number] ####[facility] ([facility])[address] [place] [id number] (RBC) [Entitic mass]27.4 jkCgpkfo69.0-33.0UnSt. Rita's HospitalComment on above:Performed By: #### [id number] ####[facility] ([facility])[address] [place] [id number] (RBC) [Entitic vol]89.8 rRJfykyt63.0-98.0UnSt. Rita's HospitalComment on above:Performed By: #### [id number] ####[facility] ([facility])[address] [place] [id number] (10*3/UL) IN BLOOD AUTOMATED BCHGZ834 10*3/aKMrxqry609-716QxepkvcmnhSt. Rita's Hospital Comment on above:Performed By: #### [id number] ####[facility] ([facility])[address] [place] [id number] (Bld) [#/Vol]2.66 10*6/uLLow3.80-5.00UnSt. Rita's HospitalComment on above:Performed By: #### [id number] ####[facility] ([facility])[address] [place] [id number] (Bld) [#/Vol]9.77 10*3/uLNormal4.00-10.60UnSt. Rita's HospitalComment on above: Performed By: #### [id number] ####[facility] ([facility])[address] [place] [id number] 51-67-3960NDHYNJW Attestation signed by Doyle Betts MD at [...] the elevated troponin is a Type II VT secondary to anemia Plan: Please transfuse 2 [...] chest pain. She was transferred here from [place] for NSTEMI and new onset HFrEF. Vitals remarkable for BP 140/54, HR 73, on 6L oxygen. Labs notable for peak troponin 929. EKG showed NSR with non-specific ST changes. Echo on 08/18/2023 shows EF 55 to 60%, mild TR, mild mitral stenosis, mild MR, normal bioprosthetic aortic valve with no significant valvular or paravalvular regurgitation, mild DE. Cardiology was consulted for management of NSTEMI. Cardiology ROS: Negative except as mentioned. Past Medical History She has a past medical history of A-fib ([facility]/HCC), Abnormal ECG, Aortic valve stenosis, Arrhythmia, Coronary [...] one tablet twice daily. (more content not included)...NormalUnSt. Rita's HospitalFERRITINon 02-18-2025 FERRITIN (NG/ML) IN SER/PLAS18.0 ng/xWFbzfmt01.0-307.0UnSt. Rita's HospitalComment on above:Performed By: #### [id number] #### [facility] ([facility]) [address] [place] [address]RUSBFEpy 71-91-3523ZTPEOD (NG/ML) IN SER/PLAS35.0 ng/mLNormal 6.6-1000UnSt. Rita's HospitalComment on above:Performed By: #### [id number] ####[facility] ([facility])[address] [place] [address]ULMMXQF FUNCTION PANELon 48-92-3318Inrhkbf [Mass/Vol]3.7 g/dLNormal3.5-5.7UnSt. Rita's HospitalComment on above:Performed By: #### [id number] #### [facility] ([facility]) [address] [place], [place] [address]CDN [Catalytic activity/Vol]66 U/IWzpkvi34-519NfawzfrrykSt. Rita's HospitalComment on above:Performed By: #### [id number] #### [facility] ([facility]) [address] [place], [place] [address]CIY [Catalytic activity/Vol]12 U/LNormal7-52UnSt. Rita's HospitalComment on above:Performed By: #### [id number] #### [facility] ([facility]) [address] [place], [place] [address]VQQ [Catalytic activity/Vol]21 U/HGqlwuj46-09RlaqsjvqbpSt. Rita's HospitalComment on above:Performed By: #### [id number] #### [facility] ([facility]) [address] [place], [place] [address]Ucyfocvyb [Mass/Vol]0.4 mg/dLNormal0.3-1.0UnSt. Rita's HospitalComment on above:Performed By: #### [id number] #### [facility] ([facility]) [address], [place] [address]Ozdgcaddc [Mass/Vol]0.1 mg/dLNormal0-0.2UnSt. Rita's HospitalComment on above:Performed By: #### [id number] #### [facility] ([facility]) [address] [facility] [place], [place] [address]Yubmbda [Mass/Vol]6.4 g/dLNormal6.0-8.3UnSt. Rita's HospitalComment on above:Performed By: #### [id number] #### [facility] ([facility]) [address] [place], [place] [address]OSGZ SENSITIVITY TROPONIN Ion 50-27-7719YQ TROPONIN I (NG/L)929 ng/LCritically high<15UnSt. Rita's HospitalComment on above: Performed By: #### [id number] ####[facility] ([facility])[address] [place], [place] [address]RGab 30-40-0546AAH&P reviewed. The patient was examined and there [...] benefits of the procedure including risk of VT, stroke and . She understands and agrees to proceed.NormalUnSt. Rita's HospitalIRON AND TIBCon 01-66-3162KCIA (UG/DL) IN SER/PLAS31 ug/jAZvm74-028WxgqjnysvqSt. Rita's HospitalComment on above:Performed By: #### [id number] ####[facility] ([facility])[address] [place], [place] [address]OPJP BINDING CAPACITY (UG/DL) IN SER/DWSX579 ug/nBTpswkv024-072PcnuymzzdmSt. Rita's Hospital Comment on above:Performed By: #### [id number] ####[facility] ([facility])[address] [place] [id number] BINDING CAPACITY.UNSATURATED (UG/DL) IN SER/DVJM719.0 ug/xPMgiayz284.0-355.0UnSt. Rita's HospitalComment on above:Performed By: #### [id number] ####[facility] ([facility])[address] [place] [id number] SATURATION (%) IN SER/PLAS8 %Vow82-16AlrsoemoenSt. Rita's HospitalComment on above:Performed By: #### [id number] ####[facility] ([facility])[address] [place] [id number] 02-18-2025 Magnesium [Mass/Vol]2.7 mg/dLNormal1.9-2.7UnSt. Rita's Hospital Comment on above:Performed By: #### [id number] ####[facility] ([facility])[address] [place] [address]VAGX GLUCOSE METER UNSOLICITED RESULTSon 02-18-2025 Glucose [Mass/Vol]172 mg/wRXrpb11-927BrkwjpnrkvSt. Rita's HospitalComment on above:Order Comment: Waived Testing in the ED is performed under the ED CLIA certificate #[id number].Result Comment: [id number] By: #### [id number] ####[facility] ([facility])[address] [place] [address]Skljmuj [Mass/Vol]210 mg/jFXqde33-421BofeejkrgtSt. Rita's HospitalComment on above:Order Comment: Waived Testing in the ED is performed under the ED CLIA certificate #[id number].Result Comment: [email or web address] By: #### [id number] #### [facility] ([facility]) [address] [place], [place] [address]KCWZ AND SCREENon 26-67-0078GO SCREENNegativeNormalUniversity Trumbull Regional Medical CenterComment on above:Performed By: #### [id number] ####[facility],ABO group Nom (Bld)ONormalUnSt. Rita's HospitalComment on above:Performed By: #### [id number] ####[facility],RH TYPE IN BLOODPositive NormalUnSt. Rita's HospitalComment on above:Performed By: #### [id number] ####[facility],VITAMIN B12on 97-13-3417Uknmwkmtq (Vitamin B12) [Mass/Vol]553 pg/mESgkpac570-603IkrwpfpfzySt. Rita's HospitalComment on above:Result Comment: REFERENCE RANGES: 180-914 pg/mL Normal 145-179 pg/mL Indeterminate <145 pg/mL DeficientPerformed By: #### [id number] ####[facility] ([facility])[address] [place], [place] [address]U2N with Estimated Average Gluon 96-52-8966Sorqzqf [Mass/Vol]194 mg/dLNormalThe [facility] Physician GroupComment on above:Order Comment: pt is getting an ultrasoundResult Comment: PERFORMED BY: [facility] [address] [place] [address] PATHOLOGIST IMPORT/EXPORT CLERK SANKET KIRKPATRICK M.D.Performed By: #### BMP, CBC #### [facility] [address] [place] [address] WHFHpK8z (Bld) [Mass fraction]8.4 %High4.3-5.6The [facility] Physician [facility] Center Of Smith CountyComment on above:Order Comment: pt is getting an ultrasoundResult Comment: Increased risk for diabetes: 5.7 - 6.4 diabetes: >6.4 glycemic control for adults with diabetes: <7.0Performed By: #### BMP, CBC #### [facility] [address] [place] [address] USAAlanine aminotransferase [Enzymatic activity/volume] in Serum or PlasmaOrdered By: Edvin Casper on 65-31-3049UFW [Catalytic activity/Vol]Alanine aminotransferase [Enzymatic activity/volume] in Serum or Plasma[address] [place], [place] [address]Albumin [Mass/volume] in Serum or Plasma by Bromocresol green (BCG) dye binding methoOrdered By: Edvin Casper on 10-46-1562Gidbswk BCG dye [Mass/Vol]Albumin [Mass/volume] in Serum or Plasma by Bromocresol green (BCG) dye binding metho3.5-5.7FUniversity Hospitals TriPoint Medical CenterAlkaline phosphatase [Enzymatic activity/volume] in Serum or PlasmaOrdered By: Edvin Casper on 54-71-3447IHG [Catalytic activity/Vol] Alkaline phosphatase [Enzymatic activity/volume] in Serum or Xplkkr45-192 [facility] Community HospitalAspartate aminotransferase [Enzymatic activity/volume] in Serum or PlasmaOrdered By: Edvin Casper on 02-16-2025 AST [Catalytic activity/Vol]Aspartate aminotransferase [Enzymatic activity/volume] in Serum or Gtosqt85-67XlgjzvvduMercer County Community Hospital Basophils Auto (Bld) [#/Vol]Ordered By: Edvin Casper on 02-16-2025 Basophils (Bld) [#/Vol]Automated basophil count0.0-0.2FUniversity Hospitals TriPoint Medical CenterBasophils/100 WBC Auto (Bld)Ordered By: Edivn Casper on 02-16-2025 Basophils/100 WBC (Bld)Automated basophil %.[facility] Bilirubin.total [Mass/volume] in Serum or PlasmaOrdered By: Edvin Casper 85-00-1575Bylrixhml [Mass/Vol]Bilirubin.total [Mass/volume] in Serum or Plasma0.3-1.0Mer[facility] HospitalBlood estimated average glucose determination by estimation from glycated hemoglobinOrdered By: Edvin Casper on 10-93-7159Fcgiryn glucose Estimated from glycated hemoglobin (Bld) [Mass/Vol]Glucose mean value [Mass/volume] in Blood Estimated from glycated hemoglobinMercer County Community HospitalCalcium [Mass/volume] in Serum or PlasmaOrdered By: Edvin Casper 39-99-1994Hhrurse [Mass/Vol]Calcium [Mass/volume] in Serum or PlasmaLow8.6-10.3FUniversity Hospitals TriPoint Medical Center Carbon dioxide, total [Moles/volume] in Serum or PlasmaOrdered By: Edvin Casper 19-05-9274ZI8 [Moles/Vol]Carbon dioxide, total [Moles/volume] in Serum or Dlxmnk25.0-31.0Mer[facility] Community HospitalChloride [Moles/volume] in Serum or PlasmaOrdered By: Edvin Casper on 70-07-5999Bspmximu [Moles/Vol]Chloride [Moles/volume] in Serum or Zmtjrx52-742UntnzdpuaMercer County Community HospitalCholesterol [Mass/volume] in Serum or PlasmaOrdered By: Edvin Casper on 84-46-0028Sxsyjozvhpd [Mass/Vol]Cholesterol [Mass/volume] in Serum or AfmhwxZcp872-319NruqvhxywMercer County Community HospitalComment on above:Chol less than 200 mg/dl low riskChol 201-239 mg/dl borderline riskChol 240 mg/dl and greater high riskCholesterol in HDL [Mass/volume] in Serum or PlasmaOrdered By: Edvin Casper on 73-69-7074Oezraavzjux in HDL [Mass/Vol]Serum or plasma high density lipoprotein (HDL) cholesterol ezrkkwigvzq27-60OzgetbwomMercer County Community HospitalComment on above:HDL CHOL ATP-III CLASSIFICATION Cardiovascular RiskHDL > or equal to 60 mg/dL LOWHDL < 40 mg/dL HIGHCholesterol in LDL Calc [Mass/Vol]Ordered By: Edvin Casper on 62-76-8025Drkdowdtgjl in LDL [Mass/Vol]Cholesterol in LDL [Mass/volume] in Serum or Plasma by calculation 0-100Mercer County Community HospitalComment on above:LDL ATP III CLASSIFICATIONLDL less than 100 mg/dL OptimalLDL 100-129 mg/dL Near or above fbjkrdgRQH415-395 mg/dL Borderline highLDL 160-189 mg/dL HighLDL greater than 189 mg/dL Very highCholesterol in VLDL Calc [Mass/Vol]Ordered By: Edvin Casper on 60-07-9569Ghbkuxixtkp in VLDL [Mass/Vol]Cholesterol in VLDL [Mass/volume] in Serum or Plasma by calculationMercer County Community Hospital Complete Blood Count Auto Diffon 95-14-7524Oafwbvaig (Bld) [#/Vol]0.1 10*3/uL Normal0.0-0.2[facility] Physician GroupComment on above:Order Comment: pt is getting an ultrasoundResult Comment: PERFORMED BY: [place] [address] PATHOLOGIST IMPORT/EXPORT CLERK SANKET KIRKPATRICK M.D.Performed By: #### BMP, CBC #### [place] [address] USABasophils/100 WBC (Bld)1.3 %Normal.The [facility] Physician GroupComment on above:Order Comment: pt is getting an ultrasoundPerformed By: #### BMP, CBC #### [place] [address] USAEosinophils (Bld) [#/Vol]0.3 10*3/uLNormal0.0-0.45The [facility] Physician GroupComment on above:Order Comment: pt is getting an ultrasoundPerformed By: #### BMP, CBC #### [place] [address] USAEosinophils/100 WBC (Bld)3.3 %Normal.The [facility] Physician GroupComment on above:Order Comment: pt is getting an ultrasound Performed By: #### BMP, CBC #### [place] [address] USAErythrocyte distribution width (RBC) [Ratio]16.4 %High 11.9-15.3The [facility] Physician GroupComment on above:Order Comment: pt is getting an ultrasoundPerformed By: #### BMP, CBC #### [place] [address] USAHematocrit (Bld) [Volume fraction]24.7 %Low34.0-46.4The [facility] Physician GroupComment on above:Order Comment: pt is getting an ultrasoundPerformed By: #### BMP, CBC #### [place] [address] USAHemoglobin (Bld) [Mass/Vol]8.2 g/dLLow11.8-15.4The [facility] Physician GroupComment on above:Order Comment: pt is getting an ultrasoundPerformed By: #### BMP, CBC #### [place] [address] USALymphocytes (Bld) [#/Vol]2.3 10*3/uLNormal1.00-4.8The [facility] Physician GroupComment on above:Order Comment: pt is getting an ultrasoundPerformed By: #### BMP, CBC #### [place] [address] USALymphocytes/100 WBC (Bld)25.6 %Normal.The [facility] Physician GroupComment on above:Order Comment: pt is getting an ultrasound Performed By: #### BMP, CBC #### [address]H (RBC) [Entitic mass]28.4 enBvepvu00.7-34.3The [facility] Physician GroupComment on above:Order Comment: pt is getting an ultrasoundPerformed By: #### BMP, CBC #### [place] [address] USAV (RBC) [Entitic vol]85.9 [id number] [facility] Physician GroupComment on above:Order Comment: pt is getting an ultrasound Performed By: #### BMP, CBC #### [place] [address] USAMean Corpuscular HGB Conc33.0 g/iIOeiina67.0-35.0The [facility] Physician GroupComment on above:Order Comment: pt is getting an ultrasoundPerformed By: #### BMP, CBC #### [place] [address] USAMonocytes (Bld) [#/Vol]1.1 10*3/uLHigh0.0-0.8The [facility] Physician GroupComment on above:Order Comment: pt is getting an ultrasound Performed By: #### BMP, CBC #### [place] [address] USAMonocytes/100 WBC (Bld)12.6 %Normal.The [facility] Physician GroupComment on above:Order Comment: pt is getting an ultrasound Performed By: #### BMP, CBC #### [facility] [address] [place] [address] USANeutrophils (Bld) [#/Vol]5.0 10*3/uLNormal1.8-7.7The [facility] Physician GroupComment on above:Order Comment: pt is getting an ultrasoundPerformed By: #### BMP, CBC #### [facility] [address] [place] [address] USANeutrophils/100 WBC (Bld)57.2 %Normal.The [facility] Physician GroupComment on above:Order Comment: pt is getting an ultrasound Performed By: #### BMP, CBC #### [facility] [address] [place] [address] USANRBC%0.0 /100{WBC}Normal0-0.5The [facility] Comment on above:Order Comment: pt is getting an ultrasoundPerformed By: #### BMP, CBC #### [facility] [address] [place] [address] USAPlatelet mean volume (Bld) [Entitic vol]8.9 fLNormal 6.3-10.7The [facility] Physician GroupComment on above:Order Comment: pt is getting an ultrasoundPerformed By: #### BMP, CBC #### [facility] [address] [place] [address] USAPlatelets (Bld) [#/Vol]166 10*3/nOIqmrvp346-228Jwa [facility] Physician GroupComment on above:Order Comment: pt is getting an ultrasoundPerformed By: #### BMP, CBC #### [facility] [address] [place] [address] USARBC (Bld) [#/Vol]2.87 10*6/uLLow3.60-5.00The [facility] Physician GroupComment on above:Order Comment: pt is getting an ultrasound Performed By: #### BMP, CBC #### [facility] [address] [place] [address] USAWBC (Bld) [#/Vol]8.8 10*3/uLNormal3.8-11.6The [facility] Physician GroupComment on above:Order Comment: pt is getting an ultrasound Performed By: #### BMP, CBC #### [facility] [address] [place] [address] USAComprehensive Metabolic Panelon 96-31-4142Ntsfpvv [Mass/Vol]3.8 g/dLNormal3.5-5.7The [facility] Physician GroupComment on above: Order Comment: FASTING Y pt is getting an ultrasoundPerformed By: #### BMP, CBC #### [facility] [address] [place] [address] USAAlbumin/Globulin [Mass ratio]1.8 {ratio}NormalThe [facility] Physician GroupComment on above:Order Comment: FASTING Y pt is getting an ultrasoundPerformed By: #### BMP, CBC #### [place] [address] USAALP [Catalytic activity/Vol]64 U/HGgvcou29-374Jmw [facility] Physician GroupComment on above:Order Comment: FASTING Y pt is getting an ultrasoundPerformed By: #### BMP, CBC #### [place] [address] USAALT [Catalytic activity/Vol]15 U/LNormal7-52The [facility] Physician GroupComment on above:Order Comment: FASTING Y pt is getting an ultrasoundPerformed By: #### BMP, CBC #### [place] [address] USAAnion gap [Moles/Vol]10.7 mmol/LNormal6.0-15.0The [facility] Physician GroupComment on above:Order Comment: FASTING Y pt is getting an ultrasoundPerformed By: #### BMP, CBC #### [place] [address] USAAST [Catalytic activity/Vol]17 U/BXvnifw32-18Yxg [facility] Physician GroupComment on above:Order Comment: FASTING Y pt is getting an ultrasoundPerformed By: #### BMP, CBC #### [place] [address] USABilirubin [Mass/Vol]0.3 mg/dLNormal0.3-1.0The [facility] Physician GroupComment on above:Order Comment: FASTING Y pt is getting an ultrasoundPerformed By: #### BMP, CBC #### [facility] [address] [place] [address] USACalcium [Mass/Vol]8.3 mg/dLLow8.6-10.3The [facility] Physician GroupComment on above:Order Comment: FASTING Y pt is getting an ultrasoundPerformed By: #### BMP, CBC #### [facility] [address] [place] [address] USAChloride [Moles/Vol]105 mmol/DMfczzw47-977Use [facility] Physician GroupComment on above:Order Comment: FASTING Y pt is getting an ultrasoundPerformed By: #### BMP, CBC #### [place] [address] USACO2 [Moles/Vol]26.2 mmol/ROlihkc99.0-31.0The [facility] Physician GroupComment on above:Order Comment: FASTING Y pt is getting an ultrasoundPerformed By: #### BMP, CBC #### [facility] [address] [place] [address] USACreatinine [Mass/Vol]1.44 mg/dLHigh0.60-1.20The [facility] Physician GroupComment on above:Order Comment: FASTING Y pt is getting an ultrasoundPerformed By: #### BMP, CBC #### [place] [address] USACreatinine Clr Calc Igrplvyz54.01NoAtrium Health Wake Forest Baptist Physician GroupComment on above:Order Comment: FASTING Y pt is getting an ultrasoundPerformed By: #### BMP, CBC #### [facility] [address] [place] [address] USAEstimated GFR39.128 mL/MinNoAtrium Health Wake Forest Baptist Physician GroupComment on above:Order Comment: FASTING Y pt is getting an ultrasound Performed By: #### BMP, CBC #### [facility] [address] [place] [address] USAGlobulin (S) [Mass/Vol]2.1 g/dLNoAtrium Health Wake [facility] Baptist Physician GroupComment on above:Order Comment: FASTING Y pt is getting an ultrasoundPerformed By: #### BMP, CBC #### [facility] [address] [place] [address] USAGlucose [Mass/Vol]142 mg/dLSignificant change yo48-077Zyw [facility] Physician GroupComment on above:Order Comment: FASTING Y pt is getting an ultrasoundResult Comment: Random Glucose Reference Range is dependent on time and content of last meal. Glucose of more than 200 mg/dL in a nonstressed, ambulatory subject supports the diagnosis of Diabetes Mellitus. ADA recommended reference rangePerformed By: #### BMP, CBC #### [facility] [address] [place] [address] USAPotassium [Moles/Vol]4.9 mmol/LNormal3.5-5.1The [facility] Physician GroupComment on above:Order Comment: FASTING Y pt is getting an ultrasoundPerformed By: #### BMP, CBC #### [facility] [address] [place] [address] USAProtein [Mass/Vol]5.9 g/dLLow6.4-8.9The [facility] Physician GroupComment on above:Order Comment: FASTING Y pt is getting an ultrasoundPerformed By: #### BMP, CBC #### [facility] [address] [place] [address] USASodium [Moles/Vol]137 mmol/APsohjm098-460Fym [facility] Physician GroupComment on above:Order Comment: FASTING Y pt is getting an ultrasoundPerformed By: #### BMP, CBC #### [facility] [address] [place] [id number] USAUrea nitrogen [Mass/Vol]48 mg/dLHigh7-25The [facility] Physician GroupComment on above:Order Comment: FASTING Y pt is getting an ultrasoundPerformed By: #### BMP, CBC #### [facility] [address] [place] [id number] USACreatinine [Mass/volume] in Serum or PlasmaOrdered By: Edvin Casper on 44-80-6839Irbmgwqocn [Mass/Vol]Creatinine [Mass/volume] in Serum or PlasmaHigh0.60-1.20[facility] HospitalEosinophils Auto (Bld) [#/Vol]Ordered By: Edvin Casper on 27-32-1630Jleifeissdc (Bld) [#/Vol]Automated eosinophil count0.0-0.45[facility] Eosinophils/100 WBC Auto (Bld)Ordered By: Edvintara Casper on 02-16-2025 Eosinophils/100 WBC (Bld)Automated eosinophil %.[facility] HospitalErythrocyte distribution width Auto (RBC) [Ratio]Ordered By: Edvin Casper on 72-41-7791Cawldtfvvqk distribution width (RBC) [Ratio]Erythrocyte distribution width [Ratio] by Automated oeaysYiwn25.9-15.3FUniversity Hospitals TriPoint Medical CenterFerritinon 98-76-2773Izihoyex [Mass/Vol]13.5 ng/tOLxnqsf50.0-306.8 The [facility] Physician GroupComment on above:Order Comment: FASTING Y pt is getting an ultrasoundPerformed By: #### BMP, CBC #### [facility] [address] [place] [address] USAFerritin [Mass/volume] in Serum or PlasmaOrdered By: Edvin [facility] on 23-68-7352Shxstowt [Mass/Vol]Ferritin [Mass/volume] in Serum or Dlqkud48.0-306.8[facility] HospitalFolate [Mass/volume] in Serum or PlasmaOrdered By: Edvin [facility] on 71-87-8879Dvslwt [Mass/Vol] Folate [Mass/volume] in Serum or Plasma>5.9[facility] Comment on above:Folate reference range: >5.9 ng/mlThe WHO technical consultation on folate and vitamin r11cglldllrwone has determined that folate concentrations lessthan 4 ng/ml are considered deficient.Globulin Calc (S) [Mass/Vol]Ordered By: Edvin [place] on 45-28-3174Zphbgdjo (S) [Mass/Vol] Serum globulin measurement by calculation (mass/volume)[facility] HospitalGlucose Glucometer (BldC) [Mass/Vol]Ordered By: Edvintara [place] on 13-01-8850Sabhvqk [Mass/Vol]Capillary blood glucose measurement by glucometer (mass/volume)[facility] HospitalComment on above:Random Glucose Reference Range is dependent on time and content of last meal. Glucose of more than 200 mg/dL in a nonstressed, ambulatory subject supports the diagnosis of Diabetes Mellitus.Glucose Poct Glucometerson 60-96-1372Ioypfyy [Mass/Vol]254 mg/dLPalm Beach Gardens Medical Center Physician GroupComment on above:Result Comment: Random Glucose Reference Range is dependent on time and content of last meal. Glucose of more than 200 mg/dL in a nonstressed, ambulatory subject supports the diagnosis of Diabetes Mellitus. PERFORMED BY: [address] [place] [address] PATHOLOGIST IMPORT/EXPORT CLERK SANKET KIRKPATRICK M.D.Performed By: #### GLULS #### Point of Care testing ,Tnxnmur2Gdp0: Cleaned MeterNoAtrium Health Wake Forest Baptist Physician GroupComment on above: Result Comment: PERFORMED BY: [facility] [address] [place] [address] PATHOLOGIST IMPORT/EXPORT CLERK SANKET KIRKPATRICK M.D.Performed By: #### GLULS #### Point of Care testing ,Glucose [Mass/Vol]170 mg/dLPalm Beach Gardens Medical Center Physician GroupComment on above: Result Comment: Random Glucose Reference Range is dependent on time and content of last meal. Glucose of more than 200 mg/dL in a nonstressed, ambulatory subject supports the diagnosis of Diabetes Mellitus.Performed By: #### GLULS #### Point of Care testing ,Glucose [Mass/volume] in Serum or PlasmaOrdered By: Edvin Casper on 01-86-0829Obchhzt [Mass/Vol]Glucose [Mass/volume] in Serum or PlasmaInvalid Interpretation Dxyu36-156ScpiugqfyMercer County Community HospitalComment on above: Delta: 371 on 02/15/25-1430ADA recommended reference rangeRandom Glucose Reference Range is dependent on time and content of last meal. Glucose of more than 200 mg/dL in a nonstressed, ambulatory subject supports the diagnosis of Diabetes Mellitus.Hematocrit Auto (Bld) [Volume fraction]Ordered By: Edvin Casper on 58-26-0012Mfhezocayk (Bld) [Volume fraction]Hematocrit [Volume Fraction] of Blood by Automated ivsmdEnk92.0-46.4FUniversity Hospitals TriPoint Medical CenterHemoglobin A1c/Hemoglobin.total in BloodOrdered By: Edvin Casper on 16-01-2692MmX8f (Bld) [Mass fraction]Hemoglobin A1c percentageHigh4.3-5.6 [facility] HospitalComment on above:Increased risk for diabetes: 5.7 - 6.4diabetes: >6.4glycemic control for adults with diabetes: <7.0 Hemoglobin [Mass/volume] in BloodOrdered By: Edvin Casper on 02-16-2025 Hemoglobin (Bld) [Mass/Vol]Hemoglobin [Mass/volume] in JymiwAdp66.8-15.4 [facility] HospitalIron [Mass/volume] in Serum or PlasmaOrdered By: Edvin Casper on 37-26-1359Ulpr [Mass/Vol]Iron [Mass/volume] in Serum or JliykpLhq46-779FasmsttoqMercer County Community HospitalIron and TIBC Profileon 02-16-2025% Iron Gqrjacsmly46.4 %Nhl67-91Ddz [facility] Physician GroupComment on above:Order Comment: FASTING Y pt is getting an ultrasoundPerformed By: #### BMP, CBC #### [facility] [address] [place] [address] USAIron [Mass/Vol]45 ug/nSVel18-390Aml [facility] Physician GroupComment on above:Order Comment: FASTING Y pt is getting an ultrasound Performed By: #### BMP, CBC #### [facility] [address] [place] [address] USATotal Iron Binding Wjrzbhsh142 ug/jGOjkuio419-349Bco [facility] Physician GroupComment on above:Order Comment: FASTING Y pt is getting an ultrasoundPerformed By: #### BMP, CBC #### [facility] [address] [place] [address] USATransferrin [Mass/Vol]309 mg/fSXllisz191-125Dab [facility] Physician GroupComment on above:Order Comment: FASTING Y pt is getting an ultrasoundPerformed By: #### BMP, CBC #### [facility] [address] [place] [address] USALeukocytes [#/volume] corrected for nucleated erythrocytes in Blood by Automated counOrdered By: Edvin Casper on 45-95-9746LJA corrected for nucl RBC Auto (Bld) [#/Vol]Leukocytes [#/volume] corrected for nucleated erythrocytes in Blood by Automated coun3.8-11.6FUniversity Hospitals TriPoint Medical CenterLipid Panelon 53-78-9995Kxpfnprywgq [Mass/Vol]119 mg/qTOqq248-516 The [facility] Physician GroupComment on above:Order Comment: FASTING Y pt is getting an ultrasoundResult Comment: Chol less than 200 mg/dl low risk Chol 201-239 mg/dl borderline risk Chol 240 mg/dl and greater high riskPerformed By: #### BMP, CBC #### [facility] [address] [place] [address] USACholesterol in HDL [Mass/Vol]28 mg/uYTnkqhc75-97Zib [facility] Physician GroupComment on above:Order Comment: FASTING Y pt is getting an ultrasoundResult Comment: HDL CHOL ATP-III CLASSIFICATION Cardiovascular Risk HDL > or equal to 60 mg/dL LOW HDL < 40 mg/dL HIGHPerformed By: #### BMP, CBC #### [facility] [address] [place] [address] USACholesterol.total/Cholesterol in HDL [Mass ratio]4.3 {ratio}Normal<5.0The [facility] Physician GroupComment on above:Order Comment: FASTING Y pt is getting an ultrasoundPerformed By: #### BMP, CBC #### [facility] [address] [place] [address] USALDL Cholesterol,Rhrhbqelxw81 mg/dLNormal0-100The [facility] Physician GroupComment on above:Order Comment: FASTING Y pt is getting an ultrasoundResult Comment: LDL ATP III CLASSIFICATION LDL less than 100 mg/dL Optimal LDL 100-129 mg/dL Near or above optimal LDL 130-159 mg/dL Borderline high LDL 160-189 mg/dL High LDL greater than 189 mg/dL Very highPerformed By: #### BMP, CBC #### [facility] [address] [place] [address] USATriglyceride w/Hbbjtr966 mg/dLHigh0-149The [facility] Physician GroupComment on above:Order Comment: FASTING Y pt is getting an ultrasoundResult Comment: TRIG ATP III CLASSIFICATION TRIG less than 150 mg/dL Normal TRIG 150-199 mg/dL Borderline high TRIG 200-500 mg/dL High TRIG greater than 500 mg/dL Very high Standard traceable to the Center for Disease Conrtrol and Prevention (CDC) test method.Performed By: #### BMP, CBC #### [facility] [address] [place] [address] USAVLDL GDQVBMPGDUO08 mg/dLNormalThSteele Memorial Medical Center Physician GroupComment on above:Order Comment: FASTING Y pt is getting an ultrasound Performed By: #### BMP, CBC #### [facility] [address] [place] [address] USALymphocytes Auto (Bld) [#/Vol]Ordered By: Edvin Casper on 39-17-7429Mxozxwhcgzc (Bld) [#/Vol]Lymphocytes [#/volume] in Blood by Automated count1.00-4.8[facility] HospitalLymphocytes/100 WBC Auto (Bld)Ordered By: Edvin Casper on 94-25-5350Qfjbaiyxmtd/100 WBC (Bld) Lymphocytes/100 leukocytes in Blood by Automated count.[facility] Auto (RBC) [Entitic mass]Ordered By: Edvin Casper on 07-75-9710XJG (RBC) [Entitic mass]MCH [Entitic mass] by Automated count24.7-34.3 [facility] Auto (RBC) [Mass/Vol]Ordered By: Edvin Casper on 63-91-1251VTMR (RBC) [Mass/Vol]MCHC [Mass/volume] by Automated count32.0-35.0[facility] CenterV Auto (RBC) [Entitic vol] Ordered By: Edvin Casper on 87-72-9158KJN (RBC) [Entitic vol]MCV [Entitic volume] by Automated zkonn67-870UcrzwvibaMercer County Community HospitalMonocytes Auto (Bld) [#/Vol]Ordered By: Edvin Casper on 52-44-4155Fffsqozck (Bld) [#/Vol]Automated blood monocyte countHigh0.0-0.8[facility] HospitalMonocytes/100 WBC Auto (Bld)Ordered By: Edvin Casper on 02-16-2025 Monocytes/100 WBC (Bld)Automated monocyte %.[facility] Neutrophils Auto (Bld) [#/Vol]Ordered By: Edvin Casper on 02-16-2025 Neutrophils (Bld) [#/Vol]Neutrophils [#/volume] in Blood by Automated count 1.8-7.7FUniversity Hospitals TriPoint Medical CenterNeutrophils/100 WBC Auto (Bld)Ordered By: Edvin Casper on 45-67-7618Bwcdsuoguld/100 WBC (Bld)Automated neutrophil %.[facility] HospitalNo Panel InformationOrdered By: Edvin Casper on 80-71-0789Glafxft Glucose CommentGlu2: cleaned meter [facility] HospitalEstimated GFR (CKD-EPI)39.128 mL/MinMercer County Community HospitalPharmacy Creatinine Clearance (Chem36.01[facility] HospitalNucleated erythrocytes [Presence] in Blood by Automated countOrdered By: Edvin Casper on 81-36-3746Ylhanbawz RBC Auto Ql (Bld) Nucleated erythrocytes [Presence] in Blood by Automated count0-0.5FUniversity Hospitals TriPoint Medical CenterPlatelet mean volume Auto (Bld) [Entitic vol]Ordered By: Edvin Casper on 45-06-1519Vlfzewaf mean volume (Bld) [Entitic vol] Platelet mean volume [Entitic volume] in Blood by Automated count6.3-10.7 [facility] HospitalPlatelets Auto (Bld) [#/Vol]Ordered By: Edvin Casper on 86-15-3450Wjoijbguq (Bld) [#/Vol]Platelets [#/volume] in Blood by Automated bofzi891-420HvsypazdaMercer County Community HospitalPotassium [Moles/volume] in Serum or PlasmaOrdered By: Edvin Casper on 02-16-2025 Potassium [Moles/Vol]Potassium [Moles/volume] in Serum or Plasma3.5-5.1FUniversity Hospitals TriPoint Medical CenterProtein [Mass/volume] in Serum or PlasmaOrdered By: Edvin Casper on 64-77-5731Pwnqovr [Mass/Vol]Protein [Mass/volume] in Serum or PlasmaLow6.4-8.9[facility] HospitalRBC Auto (Bld) [#/Vol] Ordered By: Edvin Casper on 49-77-1568JRE (Bld) [#/Vol]Erythrocytes [#/volume] in Blood by Automated countLow3.60-5.00St. Charles Hospitalerum or plasma albumin/globulin mass ratioOrdered By: Edvin Casper on 73-04-7903Tbbdpee/Globulin [Mass ratio]Serum or plasma albumin/globulin mass ratioSt. Charles Hospitalerum or plasma anion gap determination Ordered By: Edvin Casper on 31-54-0874Lzqzd gap [Moles/Vol]Serum or plasma anion gap determination6.0-15.0St. Charles Hospitalerum or plasma iron binding capacity measurement (mass/volume)Ordered By: Edvin Casper on 68-75-1121Qhnw binding capacity [Mass/Vol]Iron binding capacity [Mass/volume] in Serum or Qehbds125-469KnjjekxvqSt. Charles Hospitalerum or plasma iron saturation measurement (mass fraction)Ordered By: Edvin Casper on 94-52-1002Htiq saturation [Mass fraction]Iron saturation [Mass Fraction] in Serum or VbsxmaWcj81-62WpynnirpzSt. Charles Hospitalerum or plasma total cholesterol/high density lipoprotein (HDL) cholesterol mass rat Ordered By: Edvin Casper on 40-57-9035Dektjcbntbj.total/Cholesterol in HDL [Mass ratio]Serum or plasma total cholesterol/high density lipoprotein (HDL) cholesterol mass rat<5.0St. Charles Hospitalodium [Moles/volume] in Serum or PlasmaOrdered By: Edvin Casper on 63-44-0746Xpnyqw [Moles/Vol]Sodium [Moles/volume] in Serum or Cjpslm786-480XrnqfkfbzMercer County Community HospitalThyroid Stim Hormone w/Rflxon 73-19-5454Heisdzs Stim Hormone w/Rflx1.17 u[iU]/mLNormal0.45-5.33The [facility] Physician GroupComment on above: Order Comment: FASTING Y pt is getting an ultrasoundResult Comment: PERFORMED BY: [place] [address] PATHOLOGIST IMPORT/EXPORT CLERK SANKET KIRKPATRICK M.D.Performed By: #### BMP, CBC #### [facility] [address] [place] [address] USAThyrotropin [Units/volume] in Serum or PlasmaOrdered By: Edvin Casper on 34-74-7940ZVJ QnThyrotropin [Units/volume] in Serum or Plasma0.45-5.33[facility] HospitalTransferrin [Mass/volume] in Serum or PlasmaOrdered By: Edvin Casper on 65-36-5269Udltusqrkxv [Mass/Vol]Transferrin [Mass/volume] in Serum or Fonytw921-572BatkipljqMercer County Community HospitalTriglyceride [Mass/volume] in Serum or PlasmaOrdered By: Edvin Casper on 63-36-0314Wtsrwqfgqgda [Mass/Vol]Triglyceride [Mass/volume] in Serum or PlasmaHigh0-149[facility] HospitalComment on above:TRIG ATP III CLASSIFICATIONTRIG less than 150 mg/dL NormalTRIG 150-199 mg/dL Borderline highTRIG 200-500 mg/dL High TRIG greater than 500 mg/dL Very highStandard traceable to the Center for Disease Conrtrol and Prevention (CDC) test method.US aorta (aaa) screeningon 15-67-7715QV aorta (aaa) screening [facility] [place] [address] [place], [place] [id number] Ultrasound Report Signed Patient: Diann Patel MR#: [id number] 525 : 1955 Acct:[id number] Age/Sex: 69 / F ADM Date: 02/15/25 Loc: Room: [address] [place] [address] Type: ADM INOo Attending Dr: Edvin Casper [...] Erwin Jr., D.O.02/16/2025 8:26 AM Dictation Location: [place] [address] Tech: Ana Maria Rileyer Transcribed By: JOSUE 02/16/25825 Dictated By: Julio Cesar Erwin Jr, DO 02/16/25824 Signed By: 02/16/25825[facility] Physician GroupUrea nitrogen [Mass/volume] in Serum or PlasmaOrdered By: Edvin Casper on 21-87-1750Cqot nitrogen [Mass/Vol]Urea nitrogen [Mass/volume] in Serum or PlasmaMedfield State Hospital-Mercer County Community HospitalVit. B12/Folate Profileon 05-64-1946Llizhmhhu (Vitamin B12) [Mass/Vol]831 pg/xBXkgumj655-759Mjj [facility] Physician GroupComment on above:Order Comment: FASTING Y pt is getting an ultrasoundPerformed By: #### BMP, CBC #### [facility] [address] [place] [id number] LAIUjmbjk96.0 ng/mLNormal>5.9The [facility] Comment on above:Order Comment: FASTING Y pt is getting an ultrasoundResult Comment: Folate reference range: >5.9 ng/ml The WHO technical consultation on folate and vitamin b12 deficiencies has determined that folate concentrations less than 4 ng/ml are considered deficient.Performed By: #### BMP, CBC #### [facility] [address] [place] [address] USAVitamin B12 ser/plasOrdered By: Edvin Casper on 02-24-9365Xeuwxevyk (Vitamin B12) [Mass/Vol]Vitamin B12 ser/qpfb543-943Jsbcmapry Regional Medical CenterWBC Auto (Bld) [#/Vol]Ordered By: Edvin Casper on 83-67-1274RVF (Bld) [#/Vol]Leukocytes [#/volume] in Blood by Automated count 3.8-11.6FUniversity Hospitals TriPoint Medical CenterAlanine aminotransferase [Enzymatic activity/volume] in Serum or PlasmaOrdered By: Ross Martinez on 67-39-6702UZD [Catalytic activity/Vol]Alanine aminotransferase [Enzymatic activity/volume] in Serum or Plasma7-52[facility] HospitalAlbumin [Mass/volume] in Serum or Plasma by Bromocresol green (BCG) dye binding methoOrdered By: Ross Martinez on 49-13-4338Tfytsji BCG dye [Mass/Vol]Albumin [Mass/volume] in Serum or Plasma by Bromocresol green (BCG) dye binding metho3.5-5.7FUniversity Hospitals TriPoint Medical CenterAlkaline phosphatase [Enzymatic activity/volume] in Serum or PlasmaOrdered By: Ross Martinez on 34-60-0886DKO [Catalytic activity/Vol] Alkaline phosphatase [Enzymatic activity/volume] in Serum or Xyaxsh47-592 [facility] HospitalAppearance of UrineOrdered By: Ross Martinez on 48-17-7709Evnqwvftbz (U)Urine appearanceCleKettering Health MiamisburgAspartate aminotransferase [Enzymatic activity/volume] in Serum or Plasma Ordered By: Ross Martinez on 19-14-8342CZK [Catalytic activity/Vol]Aspartate aminotransferase [Enzymatic activity/volume] in Serum or Ynqfwu50-01DphyziuqnMercer County Community HospitalB-Type Natriuretic Peptideon 60-51-0272Azetqgbdgdh peptide B (Bld) [Mass/Vol]278.0 pg/mLHigh5-100The [facility] Comment on above:Result Comment: PERFORMED BY: [place] [address] PATHOLOGIST IMPORT/EXPORT CLERK SANEKT KIRKPATRICK M.D.Performed By: #### BMP, CBC #### [facility] [address] [place] [address] USABasophils Auto (Bld) [#/Vol]Ordered By: Ross Martinez on 82-31-3981Vvlzrhkcz (Bld) [#/Vol]Automated basophil count0.0-0.2FUniversity Hospitals TriPoint Medical CenterBasophils/100 WBC Auto (Bld)Ordered By: Ross Martinez on 16-19-4130Wcwqbsoxs/100 WBC (Bld)Automated basophil %.[facility] Community HospitalBilirubin Test strip Ql (U)Ordered By: Ross Martinez on 23-61-6302Mhiuirpob Ql (U)Bilirubin.total [Presence] in Urine by Test strip NegativeMercer County Community HospitalBilirubin.total [Mass/volume] in Serum or PlasmaOrdered By: Ross Martinez on 34-17-1014Suzalwket [Mass/Vol] Bilirubin.total [Mass/volume] in Serum or Plasma0.3-1.0Mer[facility] HospitalBioFire Not Detectedon 65-95-2134ZkkJpde Not DetectedNot detected NormalNot DetecteThe [facility] Physician GroupComment on above:Result Comment: This is a duplicate RP2.1 COVID (PCR) result to be used for statistical tracking purpose only. PERFORMED BY: [place] [address] PATHOLOGIST IMPORT/EXPORT CLERK SANKET KIRKPATRICK M.D.Performed By: #### BMP, CBC #### [place] [address] USACOVID Cepheid NegativeOrdered By: Ross Martinez on 36-95-7085VMNQ-CoV-2 (COVID-19) Ab IA QlCOVID CepheidNegativeMercer County Community HospitalComment on above:This is a duplicate Cepheid Xpert Xpress CoV- 2/Flu/RSV Plus RNA by RT-PCR result to be used for statistical tracking purpose only.COVID-19 / Flu A/B / RSV PCRon 28-76-3533SSVM-CoV-2 (COVID-19) RNA KOLE+probe Ql (Unsp spec)COVID-19 Cepheid [...] or Cepheid Disclaimer revoked sooner. PERFORMED BY: [facility] [place] [address] PATHOLOGIST IMPORT/EXPORT CLERK SANKET KIRKPATRICK M.D.[facility] Physician GroupComment on above: Performed By: #### GLULS #### Point of Care testing ,COVID-19 Detected/Not DetectedOrdered By: Edvin Casper on 02-15-2025 SARS-CoV-2 (COVID-19) RNA KOLE+non-probe Ql (Nph)Not detectedNot TriHealthComment on above:This is a duplicate RP2.1 COVID (PCR) result to be used for statistical tracking purpose only.CT abdomen pelvis w con on 44-97-7826SW abdomen pelvis w [facility] [place] [address] [place] [address] Scan Report Signed Patient: Diann Patel MR#: [id number] 525 : 1955 Acct:[id number] Age/Sex: 69 / F ADM Date: 02/15/25 Loc: Room: [address] [place] [address] Type: ADM INOo Attending Dr: Edvin Casper [...] Manjula Flannery M.D.02/15/2025 4:03 PM Dictation Location: [place] [address] Transcribed By: JOSUE 02/15/25 1603 Dictated By: Manjula Flannery MD 02/15/25 1554 Signed By: 02/15/25 1603[facility] Physician GroupCalcium [Mass/volume] in Serum or PlasmaOrdered By: Ross Martinez on 85-71-0764Rruebmz [Mass/Vol]Calcium [Mass/volume] in Serum or Plasma8.6-10.3FUniversity Hospitals TriPoint Medical CenterCarbon dioxide, total [Moles/volume] in Serum or PlasmaOrdered By: Ross Martinez on 91-55-2555BM2 [Moles/Vol]Carbon dioxide, total [Moles/volume] in Serum or Plasma 21.0-31.0Mer[facility] HospitalCepheid COVID PCR Negativeon 46-61-4100MHSO-CoV-2 (COVID-19) RNA KOLE+probe Ql (Unsp spec)NegativeNormal NegativeThe [facility] Physician GroupComment on above:Result Comment: This is a duplicate CepDandelionid Xpert Xpress CoV-2/Flu/RSV Plus RNA by RT-PCR result to be used for statistical tracking purpose only. PERFORMED BY: [facility] [address] [place] [address] PATHOLOGIST IMPORT/EXPORT CLERK SANKET KIRKPATRICK M.D.Performed By: #### GLULS #### Point of Care testing ,Chloride [Moles/volume] in Serum or PlasmaOrdered By: Ross Martinez on 42-08-0172Jxdfycyo [Moles/Vol]Chloride [Moles/volume] in Serum or Nqmrvn56-483 [facility] HospitalColor Auto (U)Ordered By: Ross Matrinez on 72-83-5844Vdstk (U)Color of Urine by AutoYellowMercer County Community Hospital Complete Blood Count Auto Diffon 12-95-2491Fiebzzvrr (Bld) [#/Vol]0.1 10*3/uL Normal0.0-0.2The [facility] Physician GroupComment on above:Result Comment: PERFORMED BY: [facility] [place] [address] PATHOLOGIST IMPORT/EXPORT CLERK SANKET KIRKPATRICK M.D.Performed By: #### GLULS #### Point of Care testing ,Basophils/100 WBC (Bld)1.0 %Normal.The [facility] Physician GroupComment on above:Performed By: #### GLULS #### Point of Care testing ,Eosinophils (Bld) [#/Vol]0.4 10*3/uLNormal0.0-0.45The [facility] Physician [facility] Comment on above:Performed By: #### GLULS #### Point of Care testing ,Eosinophils/100 WBC (Bld)3.4 %Normal.The [facility] Physician GroupComment on above:Performed By: #### GLULS #### Point of Care testing ,Erythrocyte distribution width (RBC) [Ratio]16.6 %High11.9-15.3The [facility] Physician GroupComment on above:Performed By: #### GLULS #### Point of Care testing ,Hematocrit (Bld) [Volume fraction]26.9 %Low34.0-46.4The [facility] Physician GroupComment on above:Performed By: #### GLULS #### Point of Care testing ,Hemoglobin (Bld) [Mass/Vol]8.8 g/dLLow11.8-15.4The [facility] Comment on above:Performed By: #### GLULS #### Point of Care testing ,Lymphocytes (Bld) [#/Vol]2.3 10*3/uLNormal1.00-4.8The [facility] Comment on above:Performed By: #### GLULS #### Point of Care testing ,Lymphocytes/100 WBC (Bld)21.3 %Normal.The [facility] Physician GroupComment on above:Performed By: #### GLULS #### Point of Care testing ,MCH (RBC) [Entitic mass]28.4 dbKpxnlm79.7-34.3The [facility] Comment on above:Performed By: #### GLULS #### Point of Care testing ,MCV (RBC) [Entitic vol]86.5 vWPjdnbb00-411Jsc [facility] Physician GroupComment on above:Performed By: #### GLULS #### Point of Care testing ,Mean Corpuscular HGB Conc32.8 g/xNWugmdr65.0-35.0The [facility] Comment on above:Performed By: #### GLULS #### Point of Care testing ,Monocytes (Bld) [#/Vol]1.0 10*3/uLHigh0.0-0.8The [facility] Comment on above:Performed By: #### GLULS #### Point of Care testing ,Monocytes/100 WBC (Bld)18.23 %Normal0.00-20.00The [facility] Comment on above:Performed By: #### GLULS #### Point of Care testing ,Monocytes/100 WBC (Bld)9.1 %Normal.The [facility] Physician GroupComment on above:Performed By: #### GLULS #### Point of Care testing ,Neutrophils (Bld) [#/Vol]6.9 10*3/uLNormal1.8-7.7The [facility] Comment on above:Performed By: #### GLULS #### Point of Care testing ,Neutrophils/100 WBC (Bld)65.2 %Normal.The [facility] Physician GroupComment on above:Performed By: #### GLULS #### Point of Care testing ,NRBC%0.0 /100{WBC}Normal0-0.5The [facility] Physician GroupComment on above: Performed By: #### GLULS #### Point of Care testing ,Platelet mean volume (Bld) [Entitic vol]9.2 fLNormal6.3-10.7The [facility] Physician GroupComment on above:Performed By: #### GLULS #### Point of Care testing ,Platelets (Bld) [#/Vol]184 10*3/dXFturzj734-798Hjc [facility] Comment on above:Performed By: #### GLULS #### Point of Care testing ,RBC (Bld) [#/Vol]3.11 10*6/uLLow3.60-5.00The [facility] Physician GroupComment on above:Performed By: #### GLULS #### Point of Care testing ,WBC (Bld) [#/Vol]10.6 10*3/uLNormal3.8-11.6The [facility] Physician GroupComment on above:Performed By: #### GLULS #### Point of Care testing ,Comprehensive Metabolic Panelon 01-60-8490Mbhjdgg [Mass/Vol]3.9 g/dLNormal 3.5-5.7The [facility] Physician GroupComment on above:Performed By: #### GLULS #### Point of Care testing ,Albumin/Globulin [Mass ratio]1.4 {ratio}NormalThe [facility] Comment on above:Performed By: #### GLULS #### Point of Care testing ,ALP [Catalytic activity/Vol]73 U/CHvvjrl66-924Kgv [facility] Comment on above:Performed By: #### GLULS #### Point of Care testing ,ALT [Catalytic activity/Vol]15 U/LNormal7-52The [facility] Comment on above:Performed By: #### GLULS #### Point of Care testing ,Anion gap [Moles/Vol]13.4 mmol/LNormal6.0-15.0The [facility] Comment on above:Performed By: #### GLULS #### Point of Care testing ,AST [Catalytic activity/Vol]17 U/AIzcffq62-72Cus [facility] Comment on above:Performed By: #### GLULS #### Point of Care testing ,Bilirubin [Mass/Vol]0.4 mg/dLNormal0.3-1.0The [facility] Physician GroupComment on above:Performed By: #### GLULS #### Point of Care testing ,Calcium [Mass/Vol]9.4 mg/dLNormal8.6-10.3The [facility] Physician GroupComment on above:Performed By: #### GLULS #### Point of Care testing ,Chloride [Moles/Vol]98 mmol/FLvgwio67-054Gqy [facility] Physician GroupComment on above:Performed By: #### GLULS #### Point of Care testing ,CO2 [Moles/Vol]25.8 mmol/BFsnwvy36.0-31.0The [facility] Physician GroupComment on above:Performed By: #### GLULS #### Point of Care testing ,Creatinine [Mass/Vol]1.44 mg/dLHigh0.60-1.20The [facility] Physician [facility] Comment on above:Performed By: #### GLULS #### Point of Care testing ,Creatinine Clr Calc Xjqawqxi48.12NoSelect Medical Specialty Hospital - Cleveland-Fairhill GroupComment on above:Performed By: #### GLULS #### Point of Care testing ,Estimated GFR39.128 mL/MinNoSelect Medical Specialty Hospital - AkronComment on above: Performed By: #### GLULS #### Point of Care testing ,Globulin (S) [Mass/Vol]2.7 g/dLNorth Memorial Health HospitalComment on above:Performed By: #### GLULS #### Point of Care testing ,Glucose [Mass/Vol]371 mg/oRXtle46-693Btk [facility] Physician [facility] CountyComment on above:Result Comment: Random Glucose Reference Range is dependent on time and content of last meal. Glucose of more than 200 mg/dL in a nonstressed, ambulatory subject supports the diagnosis of Diabetes Mellitus. ADA recommended reference rangePerformed By: #### GLULS #### Point of Care testing ,Potassium [Moles/Vol]5.2 mmol/LHigh3.5-5.1The [facility] Physician [facility] CountyComment on above:Performed By: #### GLULS #### Point of Care testing ,Protein [Mass/Vol]6.6 g/dLNormal6.4-8.9The [facility] Physician [facility] Smith CountyComment on above:Performed By: #### GLULS #### Point of Care testing ,Sodium [Moles/Vol]132 mmol/WNvn450-245Stw [facility] Physician [facility] Smith CountyComment on above:Performed By: #### GLULS #### Point of Care testing ,Urea nitrogen [Mass/Vol]42 mg/dLHigh7-25The [facility] Physician GroupComment on above:Performed By: #### GLULS #### Point of Care testing ,Creatine Kinaseon 12-46-2985MF [Catalytic activity/Vol]61 U/CAgwsqe49-605Jma [facility] Hospital Of MechanicsburgComment on above:Performed By: #### BMP, CBC #### [facility] [address] [place] [address] USACreatine kinase [Enzymatic activity/volume] in Serum or PlasmaOrdered By: Ross Martinez on 78-38-4326NU [Catalytic activity/Vol] Creatine kinase [Enzymatic activity/volume] in Serum or Qucjvq13-001MquyjwbcfMercer County Community HospitalCreatinine [Mass/volume] in Serum or PlasmaOrdered By: Ross Martinez on 21-61-5613Eteglpnfui [Mass/Vol]Creatinine [Mass/volume] in Serum or PlasmaHigh0.60-1.20Mer[facility] Community HospitalECG 12 lead ECGon 41-07-9269YRL 12 lead ECGPROVID[facility] [place] [address] [place] [address] Electrocardiograph Report Signed Patient: Diann Patel MR#: [id number] 525 : 1955 Acct:[id number] Age/Sex: 69 / F ADM Date: 02/15/25 Loc: Room: [address] [place] [address] Type: DIS INOo Attending Dr: Edvin Casper [...] ECGs available Confirmed by EDUARDO DEAN DO ([id number]) on 02/17/2025 6:39:30 AM Referred By: Electronically Signed By: EDUARDO DEAN DO Transcribed By: MUS Signed By Eduardo Dean DO 02/17 0639[facility] Physician GroupEosinophils Auto (Bld) [#/Vol]Ordered By: Ross Martinez on 77-01-7763Bzgehdqultq (Bld) [#/Vol]Automated eosinophil count0.0-0.45Mer[facility] Community HospitalEosinophils/100 WBC Auto (Bld) Ordered By: Ross Martinez on 44-00-2611Gydqxbzvzjr/100 WBC (Bld)Automated eosinophil %.[facility] Community HospitalErythrocyte distribution width Auto (RBC) [Ratio]Ordered By: Ross Martinez on 84-41-2155Hcvmzaqclzo distribution width (RBC) [Ratio]Erythrocyte distribution width [Ratio] by Automated dhczzEjuw16.9-15.3FUniversity Hospitals TriPoint Medical CenterGlobulin Calc (S) [Mass/Vol]Ordered By: Ross Martinez on 94-57-0663Dknygebv (S) [Mass/Vol]Serum globulin measurement by calculation (mass/volume)[facility] HospitalGlucose Poct Glucometerson 99-65-5914Gypgyil1Fiu5: Cleaned MeterNoAtrium Health Wake Forest Baptist Physician GroupComment on above:Result Comment: PERFORMED BY: [place] [id number] PATHOLOGIST IMPORT/EXPORT CLERK SANKET KIRKPATRICK M.D.Performed By: #### BMP, CBC #### [facility] [address] [place] [address] USAGlucose [Mass/Vol]377 mg/dLPalm Beach Gardens Medical Center Physician GroupComment on above:Result Comment: Random Glucose Reference Range is dependent on time and content of last meal. Glucose of more than 200 mg/dL in a nonstressed, ambulatory subject supports the diagnosis of Diabetes Mellitus.Performed By: #### BMP, CBC #### [facility] [address] [place] [address], [place] [address] USAGlucose [Mass/volume] in Serum or PlasmaOrdered By: Ross Martinez on 93-94-4084Zynoffn [Mass/Vol]Glucose [Mass/volume] in Serum or VnsfuvBpou49-971PqdhrptfsMercer County Community HospitalComment on above:ADA recommended reference rangeRandom Glucose Reference Range is dependent on time and content of last meal. Glucose of more than 200 mg/dL in a nonstressed, ambulatory subject supports the diagnosisof Diabetes Mellitus.Glucose [Mass/volume] in Urine by Test stripOrdered By: Ross Martinez on 02-15-2025 Glucose Test strip (U) [Mass/Vol]Glucose [Mass/volume] in Urine by Test strip HighNormalMercer County Community HospitalHematocrit Auto (Bld) [Volume fraction]Ordered By: Ross Martinez on 45-23-9238Lvdhtfecbk (Bld) [Volume fraction]Hematocrit [Volume Fraction] of Blood by Automated dddxfEal70.0-46.4 [facility] HospitalHemoglobin Test strip Ql (U)Ordered By: Ross Martinez on 57-10-7395Oamonzzrjv Ql (U)Hemoglobin [Presence] in Urine by Test stripNegPaulding County HospitalHemoglobin [Mass/volume] in Blood Ordered By: Ross Martinez 54-95-1419Zhtgnfhrlz (Bld) [Mass/Vol]Hemoglobin [Mass/volume] in DjqwcIra56.8-15.4FUniversity Hospitals TriPoint Medical CenterKetones Test strip Ql (U)Ordered By: Ross Martinez on 80-33-2265Ldwgxui Ql (U)Ketones [Presence] in Urine by Test stripNegPaulding County Hospital Leukocyte esterase [Presence] in Urine by Test stripOrdered By: Ross Martinez on 96-42-5558Dpnqndyig esterase Test strip Ql (U)Leukocyte esterase [Presence] in Urine by Test stripCleveland Clinic Mercy HospitalLeukocytes [#/volume] corrected for nucleated erythrocytes in Blood by Automated coun Ordered By: Ross Martinez on 93-80-1279UAX corrected for nucl RBC Auto (Bld) [#/Vol]Leukocytes [#/volume] corrected for nucleated erythrocytes in Blood by Automated coun3.8-11.6FUniversity Hospitals TriPoint Medical CenterLipaseon 59-07-1811Vboyfa [Catalytic activity/Vol]41.0 U/MCbypce58.0-82.0The [facility] Comment on above:Result Comment: PERFORMED BY: [facility] [place] [id number] PATHOLOGIST IMPORT/EXPORT CLERK SANKET KIRKPATRICK M.D.Performed By: #### GLULS #### Point of Care testing ,Lipase [Enzymatic activity/volume] in Serum or PlasmaOrdered By: Ross Martinez on 33-49-0894Qzmdsj [Catalytic activity/Vol]Lipase [Enzymatic activity/volume] in Serum or Fnqzva24.0-82.0[facility] HospitalLymphocytes Auto (Bld) [#/Vol]Ordered By: Ross Martinez on 52-98-4852Spgyfgmavyo (Bld) [#/Vol] Lymphocytes [#/volume] in Blood by Automated count1.00-4.8Mer[facility] Community HospitalLymphocytes/100 WBC Auto (Bld)Ordered By: Ross Martinez on 81-87-2169Rxvdvcrhbob/100 WBC (Bld)Lymphocytes/100 leukocytes in Blood by Automated count.[facility] Community HospitalMCH Auto (RBC) [Entitic mass] Ordered By: Ross Martinez on 94-80-3836LLU (RBC) [Entitic mass]MCH [Entitic mass] by Automated count24.7-34.3FUniversity Hospitals TriPoint Medical CenterMCHC Auto (RBC) [Mass/Vol]Ordered By: Ross Martinez on 95-89-3517JLYF (RBC) [Mass/Vol] MCHC [Mass/volume] by Automated count32.0-35.0[facility] MCV Auto (RBC) [Entitic vol]Ordered By: Ross Martinez on 30-62-9677APS (RBC) [Entitic vol]MCV [Entitic volume] by Automated ytmzd95-145ZquomshhkMercer County Community HospitalMonocyte distribution width [Entitic volume] in Blood by Automated Ordered By: Ross Martinez on 21-77-9788Bhnumqsr distribution width Auto (Bld) [Entitic vol]Monocyte distribution width [Entitic volume] in Blood by Automated 0.00-20.00[facility] HospitalMonocytes Auto (Bld) [#/Vol]Ordered By: Ross Martinez on 61-43-8746Sfmxlhvbo (Bld) [#/Vol]Automated blood monocyte countHigh0.0-0.8Mer[facility] Community HospitalMonocytes/100 WBC Auto (Bld) Ordered By: Ross Martinez on 16-10-0314Jyzqdhapq/100 WBC (Bld)Automated monocyte %.[facility] Community HospitalNatriuretic peptide B [Mass/Vol] Ordered By: Ross Martinez on 30-11-2812Hpjspfptfpv peptide B (Bld) [Mass/Vol] BNP ser/plasHigh5-100Mer[facility] Community HospitalNeutrophils Auto (Bld) [#/Vol]Ordered By: Ross Martinez on 98-51-8473Gstiwgqyzbg (Bld) [#/Vol] Neutrophils [#/volume] in Blood by Automated count1.8-7.7FUniversity Hospitals TriPoint Medical CenterNeutrophils/100 WBC Auto (Bld)Ordered By: Ross Martinez on 51-40-1361Lsvklxkntuo/100 WBC (Bld)Automated neutrophil %.[facility] HospitalNitrite Test strip Ql (U)Ordered By: Ross Martinez on 02-15-2025 Nitrite Ql (U)Nitrite [Presence] in Urine by Test stripNegativeMercer County Community HospitalNo Panel InformationOrdered By: Ross Martinez on 95-88-3131Diwnjmxjg GFR (CKD-EPI)39.128 mL/MinMercer County Community Hospital Pharmacy Creatinine Clearance (Chem36.12[facility] Nucleated erythrocytes [Presence] in Blood by Automated countOrdered By: Ross Martinez on 42-78-2315Dzhemxxto RBC Auto Ql (Bld)Nucleated erythrocytes [Presence] in Blood by Automated count0-0.5FUniversity Hospitals TriPoint Medical Center Ophthalmic OCT panelon 29-96-1749STIDNorth [facility] City Hospital Eye Images reviewed and comparison made to baseline, Images reviewed. To assess optic nerve function and for use in future follow-up. Reliability: poor. Left Eye Images reviewed and comparison made to baseline, Images reviewed. To assess optic nerve function and for use in future follow-up. Reliability: good and adequate. Notes Good nerve fiber layer (NFL) thickness both eyes (OU). Stable.[facility] HealthcareRadiology Study observation (narrative)[facility] HealthcareOptical coherence tomography study reporton 19-24-4218EADOThe [facility]er Banks Hospital Radiology Study observation (narrative)[facility] HealthcarePlatelet mean volume Auto (Bld) [Entitic vol]Ordered By: Ross Martinez on 36-35-6601Wdjdyttp mean volume (Bld) [Entitic vol]Platelet mean volume [Entitic volume] in Blood by Automated count6.3-10.7FUniversity Hospitals TriPoint Medical CenterPlatelets Auto (Bld) [#/Vol] Ordered By: Ross Martinez on 36-64-0224Rtkbinhuz (Bld) [#/Vol]Platelets [#/volume] in Blood by Automated njept887-307VbbmapfkjMercer County Community Hospital Potassium [Moles/volume] in Serum or PlasmaOrdered By: Ross Martinez on 91-59-1460Gdqjhemkn [Moles/Vol]Potassium [Moles/volume] in Serum or PlasmaHigh 3.5-5.1FUniversity Hospitals TriPoint Medical CenterProtein Test strip (U) [Mass/Vol]Ordered By: Ross Martinez on 98-54-8922Ybyryto (U) [Mass/Vol]Protein [Mass/volume] in Urine by Test stripNegativeMercer County Community HospitalProtein [Mass/volume] in Serum or PlasmaOrdered By: Ross Martinez on 03-82-1541Zmujlfl [Mass/Vol]Protein [Mass/volume] in Serum or Plasma6.4-8.9[facility] Community HospitalRBC Auto (Bld) [#/Vol]Ordered By: Ross Martinez on 01-97-2552OOC (Bld) [#/Vol]Erythrocytes [#/volume] in Blood by Automated countLow3.60-5.00 [facility] HospitalRespiratory (Upper) Panel, PCRon 02-15-2025 Respiratory (Upper) [...] Influenza A H3 Blank Space PERFORMED BY: [place] [address] PATHOLOGIST IMPORT/EXPORT CLERK SANKET KIRKPATRICK M.D.[facility] Physician GroupComment on above: Performed By: #### BMP, CBC #### [address]Respiratory pathogens DNA and RNA panel - Nasopharynx by KOLE with non-probe detectionOrdered By: Edvin Casper on 02-15-2025 Respiratory pathogens DNA and RNA panel KOLE+non-probe (Nph)Respiratory pathogens DNA and RNA panel - Nasopharynx by KOLE with non-probe detectionMercer County Community HospitalRespiratory specimen influenza A virus, influenza B virus, respiratory syncytical virOrdered By: Ross Martinez on 02-15-2025 SARS-CoV-2 (COVID-19) RNA KOLE+probe Ql (Unsp spec)Respiratory specimen influenza A virus, influenza B virus, respiratory syncytical virSt. Charles Hospitalerum or plasma albumin/globulin mass ratioOrdered By: Ross Martinez on 25-32-6568Zvwgfrk/Globulin [Mass ratio]Serum or plasma albumin/globulin mass ratioSt. Charles Hospitalerum or plasma anion gap determinationOrdered By: Ross Martinez on 44-61-4343Ixsbk gap [Moles/Vol]Serum or plasma anion gap determination6.0-15.0St. Charles Hospitalodium [Moles/volume] in Serum or PlasmaOrdered By: Ross Martinez on 56-22-4458Cnjvbi [Moles/Vol]Sodium [Moles/volume] in Serum or PlasmaLow 136-145St. Charles Hospitalpecific gravity Test strip (U) [Rel density]Ordered By: Ross Martinez on 24-00-3982Qurpvxzu gravity (U) [Rel density]Specific gravity of Urine by Test stripHigh1.001-1.030Mer[facility] Community HospitalTroponin I High Sensitivityon 53-77-9321Umppbsvb I High Ofzmgaffjjs03Trzzkh8-77Gmn [facility] Physician GroupComment on above:Result Comment: The Troponin units of report have been changed to meet the Chest Pain Accreditation requirement, element EC5.M1l2. Troponin units are changed from pg/ml to ng/L. Also, the decimal is removed and results are in whole numbers. PERFORMED BY: [place] [address] PATHOLOGIST IMPORT/EXPORT CLERK SANKET KIRKPATRICK M.D.Performed By: #### BMP, CBC #### [place] [address] USATroponin I.cardiac [Mass/volume] in Serum or Plasma by Detection limit <= 0.01 ng/Ordered By: Ross Martinez on 02-53-4195Mulvicvd I.cardiac DL <= 0.01 ng/mL [Mass/Vol]Troponin I.cardiac [Mass/volume] in Serum or Plasma by Detection limit <= 0.01 ng/0-15[facility] Comment on above:The Troponin units of report have been changed to meet the Chest Pain Accreditation requirement, element EC5.M1l2. Troponin units are changed from pg/ml to ng/L. Also, the decimal is removed and results are in whole numbers.Urea nitrogen [Mass/volume] in Serum or PlasmaOrdered By: Ross Martinez on 22-85-1095Abra nitrogen [Mass/Vol]Urea nitrogen [Mass/volume] in Serum or PlasmaBraxton County Memorial Hospital7-25[facility] HospitalUrinalysison 02-15-2025 Appearance (U)ClearNormalClearOrlando Health Emergency Room - Lake Mary Physician GroupComment on above: Order Comment: Name Collection Type:: Clean-Voided MidstreamPerformed By: #### GLULS #### Point of Care testing ,Bilirubin,UrineNegativeNormalNegativeOrlando Health Emergency Room - Lake Mary Physician GroupComment on above:Order Comment: Name Collection Type:: Clean-Voided MidstreamPerformed By: #### GLULS #### Point of Care testing ,Color (U)YellowNormalYellowOrlando Health Emergency Room - Lake Mary Physician GroupComment on above:Order Comment: Name Collection Type:: Clean-Voided MidstreamPerformed By: #### GLULS #### Point of Care testing ,Glucose Ql (U)150 mg/dLKessler Institute for Rehabilitation Physician GroupComment on above: Order Comment: Name Collection Type:: Clean-Voided MidstreamPerformed By: #### GLULS #### Point of Care testing ,Ketones Ql (U)NegativeNormalNegativeOrlando Health Emergency Room - Lake Mary Physician GroupComment on above:Order Comment: Name Collection Type:: Clean-Voided MidstreamPerformed By: #### GLULS #### Point of Care testing ,Leukocyte esterase Test strip Ql (U)NegativeNormalNegAdventHealth North Pinellas Physician GroupComment on above:Order Comment: Name Collection Type:: Clean- Voided MidstreamPerformed By: #### GLULS #### Point of Care testing ,Nitrite,UrineNegativeNormalNegativeOrlando Health Emergency Room [facility] Lake Mary Physician GroupComment on above:Order Comment: Name Collection Type:: Clean-Voided MidstreamPerformed By: #### GLULS #### Point of Care testing ,Occult Blood,UrineNegativeNormalNegativeOrlando Health Emergency Room [facility] Mary Physician GroupComment on above:Order Comment: Name Collection Type:: Clean-Voided MidstreamResult Comment: PERFORMED BY: [facility] [place] [address] PATHOLOGIST IMPORT/EXPORT CLERK SANKET KIRKPATRICK M.D.Performed By: #### GLULS #### Point of Care testing ,pH (U)5.0 [pH]Normal5.0-9.0[facility] Physician GroupComment on above:Order Comment: Name Collection Type:: Clean-Voided MidstreamPerformed By: #### GLULS #### Point of Care testing ,Protein,UrineNegativeNormalNegativeThe [facility] Physician GroupComment on above:Order Comment: Name Collection Type:: Clean-Voided MidstreamPerformed By: #### GLULS #### Point of Care testing ,Specificy [place],Urine1.078Bwje8.001-1.030The [facility] Physician GroupComment on above:Order Comment: Name Collection Type:: Clean-Voided MidstreamPerformed By: #### GLULS #### Point of Care testing ,Urobilinogen,UrineNormalNormalNormalThe [facility] Physician GroupComment on above:Order Comment: Name Collection Type:: Clean-Voided MidstreamPerformed By: #### GLULS #### Point of Care testing ,Urobilinogen Test strip (U) [Mass/Vol]Ordered By: Ross Martinez on 02-15-2025 Urobilinogen (U) [Mass/Vol]Urobilinogen [Mass/volume] in Urine by Test strip [facility] CenterWBC Auto (Bld) [#/Vol]Ordered By: Ross Martinez on 37-10-7869OOU (Bld) [#/Vol]Leukocytes [#/volume] in Blood by Automated count3.8-11.6FUniversity Hospitals TriPoint Medical CenterX-ray reportOrdered By: Julio Cesar Erwin on 51-50-0263Fbuji [facility] [place] [address] XRay Report Signed Patient: Diann Patel MR#: [id number] : 1955 Acct:[id number] Age/Sex: 69 / F ADM Date: 5 Loc: ER Room: Type: [facility] ER Attending Dr: Copies to: Ross Martinez [...] Jr, DO 02/15/251537 Signed By: 02/15/25 153 [facility] HospitalXR chest 2V*on 29-27-3484SK chest 2V*[facility] [place] [address] XRay Report Signed Patient: Diann Patel MR#: [id number] : 1955 Acct:[id number] Age/Sex: 69 / F ADM Date: 02/15/25 Loc: ER Room: Type: [facility] ER Attending Dr: Copies to: Ross Martinez [...] Erwin Jr, DO 02/15/251537 Signed By: 02/15/[address] [place] [address] Physician [facility] Of [facility] CountypH Test strip (U)Ordered By: Ross Martinez on 56-75-8667fP (U)pH of Urine by Test strip5.0-9.0[facility] HospitalHbA1c (Bld) [Mass fraction]on 67-24-3125Hqqwxlyehyuxfg and review of laboratory resultsAbnormalResearch [facility] HealthcareLaboratory - Hematology and Cell countson 71-54-5768EqP9q (Bld) [Mass fraction]9.1 %[facility] HealthcareOffice Visiton 07-87-2773Ccuymr-up [id number] Diann Patel 1955 F Date Provider Department Center 12/20/2024 VALENTE BALTAZAR CARD [facility] Family History Problem Relation Age of Onset Diabetes Mother Cancer Mother Heart disease Father Alcohol abuse Brother Diabetes Brother Family Status - Relation Status Age at Mother Father Brother Level of Service:94280 DE OFFICE/OUTPATIENT ESTABLISHED MOD MDM 30 [facility]IP[facility] PROFILE (FASTING)on 47-57-9930GBWQ HDL RATIO3.6[facility] HealthcareComment on above:3.3 - 4.4 LOW RISK 4.4 - 7.1 AVERAGE RISK 7.1 - 11.0 MODERATE RISK >11.0 HIGH RISK Cholesterol [Mass/Vol]160 mg/dLNINF - 200 mg/dLNODC HealthcareCholesterol in HDL [Mass/Vol]44 mg/dL40 - 60 mg/dLNODC HealthcareComment on above:> or =60 mg/dl - LOW CARDIOVASCULAR RISK <40 mg/dl - HIGH CARDIOVASCULAR RISK Magnesium [Mass/Vol]59 mg/dLNODC HealthcareComment on above:<100 mg/dl OPTIMAL 100-129 mg/dl NEAR OR ABOVE OPTIMAL 130-159 mg/dl BORDERLINE HIGH 160-189 mg/dl HIGH >190 mg/dl VERY HIGH Magnesium [Mass/Vol]57.4 mg/dLNODC HealthcareTriglyceride [Mass/Vol]287 mg/dL HighNINF - 150 mg/dLNODC HealthcareCCF CMP (CMP) (FOR REMOTE [facility] USE)on 01-65-1927Ebqigju [Mass/Vol]3.5 g/dL3.4 - 5.0 g/dLNODC HealthcareALBUMIN GLOBULIN RATIO1.1[facility] HealthcareALP [Catalytic activity/Vol]84 U/L46 - 116 U/L [facility] HealthcareALT [Catalytic activity/Vol]22 U/L14 - 59 [...] 2[facility] HealthcareGlobulin (S) [Mass/Vol]3.3 g/dLNOMS HealthcareGlucose [Mass/Vol]174 mg/uDRjsz71 - 106 mg/dLNOMS HealthcarePotassium [Moles/Vol]5 mmol/L3.5 - 5.1 mmol/LNOMS HealthcareProtein [Mass/Vol]6.8 g/dL6.4 - 8.2 g/dLNOMS HealthcareSodium [Moles/Vol]142 mmol/L136 - 145 mmol/LNOMS HealthcareTBH EGFR-NON AF BELDQZAK13Urw>=60 mL/min/1.73m 2[facility] HealthcareUrea nitrogen [Mass/Vol]19 mg/dLHigh7.0 - 18.0 mg/dLNODC HealthcareUrea nitrogen/Creatinine [Mass ratio]17 mg/mgNOMercy McCune-Brooks HospitalNo Panel Informationon 67-65-4409Chiuczvuescimh and review of laboratory resultsAbMcLaren Central Michigan CLINISYNCCox NorthLaboratory - Hematology and Cell countson 09-22-2024 HbA1c (Bld) [Mass fraction]9.5 %Cox NorthNo Panel Informationon 09-22-2024 Interpretation and review of laboratory resultsAbnoMUSC Health Orangeburg HealthcareOffice Visiton 72-86-1060Lzgmdf-up [id number] Diann Patel 1955 F Date Provider Department Center 08/18/2024 Nayeli-CARMELLA ALLEN [facility] Family History Problem Relation Age of Onset Diabetes Mother Cancer Mother Heart disease Father Alcohol abuse Brother Diabetes Brother Family Status - Relation Status Age at Mother Father Brother Level of Service:92748 DE OFFICE/OUTPATIENT ESTABLISHED MOD MDM 30 MIN Reason for Visit and Comments: Coronary Artery Disease [187] Atrial Fibrillation [80] Valve Disorder [3372] Peripheral Vascular Disease [458]NormalMagruder Memorial Hospital US ANKLE BRACHIAL INDEX (BRIDGER) WITHOUT EXERCISEon 96-79-2070PQAG US ANKLE BRACHIAL INDEX (BRIDGER) WITHOUT EXERCISEAndrew [place] [address] and Vascular Lab Report [facility] US ANKLE BRACHIAL INDEX (BRIDGER) WITHOUT EXERCISE Patient Name: DIANN AMANDA Reading Physician: [id number] Nury Blackwell MD, RPVI Study Date: 07/20/2024 Ordering Physician: [id number] SOSA MRN/PID: [id number] Technologist: Chanda Martinez T Technologist 2: Date of /Age: 8 1955 / 69 years Gender: F Admission Status: Outpatient Location Performed: [facility] Diagnosis/ICD: Peripheral vascular disease, unspecified-I73.9 CPT Codes: 86721 Peripheral artery BRIDGER Only CONCLUSIONS: Right Lower [...] Left Brachial Pressure 175 mmHg 184 mmHg [id number] Nury Blackwell MD, RPVI Final [facility] HospitalUS Eye+Orbit - bilateralon 30-11-6082Pqwlhnscq: Cataract both eyes (OU) Testing Indication: Performed for preop measurements in the determination of an intraocular lens (IOL) for both eyes (OU) Test Reliability: Good quality both eyes (OU) Interpretation: Good measurements for intraocular lens (IOL) calculation purposes. Calculation made for both eyes (OU).[facility] Radiology Study observation (narrative)Cox NorthACT Coag (Bld)on 35-17-8426Yivevczgaxlwgr and review of laboratory resultsAbHolzer Medical Center – JacksonInterpretation and review of laboratory resultsAbHolzer Medical Center – JacksonInterpretation and review of laboratory resultsAbAdena Fayette Medical CenterInterpretation and review of laboratory resultsAbMary Rutan HospitalInterpretation and review of laboratory results [facility] ACTIVATED CLOTTING TIME LOWon 17-39-7223XDR Coag (Bld)282 [facility] on above:Target ACT range will vary based on the patient population, clinical status, and surgical intervention occurring. ACT Coag (Bld)234 [facility] on above:Target ACT range will vary based on the patient population, clinical status, and surgical intervention occurring. ACT Coag (Bld)271 [facility] on above:Target ACT range will vary based on the patient population, clinical status, and surgical intervention occurring. ACT Coag (Bld)316 [facility] on above:Target ACT range will vary based on the patient population, clinical status, and surgical intervention occurring. ACT Coag (Bld)334 [facility] HospitalComment on above:Target ACT range will vary based on the patient population, clinical status, and surgical intervention occurring. Activated clotting timeon 09-52-1591OCT Coag (Bld)282 [address]Comment on above:Result Comment: Target ACT range will vary based on the patient population, clinical status, and surgical intervention occurring.Performed By: #### 3184-9 #### MOHIT CORTEZMOTZER L ([id number]) [facility] ([facility]) [address] [place], [place] [address]WWO Coag (Bld)234 [address]Comcorewell health gerber hospital on above:Result Comment: Target ACT range will vary based on the patient population, clinical status, and surgical intervention occurring.Performed By: #### 3184-9 #### MOHIT SCHMOTZER L ([id number]) [facility] ([facility]) [address] [place], [place] [address]YPX Coag (Bld)271 [address]Comment on above:Result Comment: Target ACT range will vary based on the patient population, clinical status, and surgical intervention occurring.Performed By: #### 3184-9 #### MOHIT SCHMOTZER L ([id number]) [facility] ([facility]) [address] [place], [place] [address]OCF Coag (Bld)316 [address]Comment on above:Result Comment: Target ACT range will vary based on the patient population, clinical status, and surgical intervention occurring.Performed By: #### 3184-9 #### MOHIT SCHMOTZER L ([id number]) [facility] ([facility]) [address] [place], [place] [address]ECT Coag (Bld)334 [address]Comcorewell health gerber hospital on above:Result Comment: Target ACT range will vary based on the patient population, clinical status, and surgical intervention occurring.Performed By: #### 3184-9 #### MOHIT SCHMOTZER L ([id number]) [facility] ([facility]) [address] [place], [place] [address]UBUILPFG VASCULAR PROCEDUREon 06-21-2024 [facility], Snack Stewardess, [address] [place] [address] Cardiovascular Catheterization Report Patient Name: DIANN PATEL Performing Physician: [id number] Curry MD Study Date: 06/21/2024 Verifying Physician: [id number] Curry MD MRN/PID: [id number] Drag Out Worker/Co-scrub: Ordering Physician: [id number] MARGARETH Meka JOHNASHERLEANA Date of /Age: 8 1955 / 68 years Fellow: [id number] Braeden Colin MD Gender: F Fellow: Study: Peripheral Intervention Procedure Description: After infiltration with 2% Lidocaine utilizing two-dimensional ultrasound and fluoroscopic guidance, the right femoral artery was cannulated with a Micro- Access Kit using a modified Seldinger technique. Subsequently a 5 Honduran sheath was placed contralateral in the right femoral artery. The arterial sheath was sized up to 6 [place]uran. After completion of the procedure, A 6/7F Vascade Closure System was placed per protocol. Following routine access via the right ADULT DAYCARE COORDINATOR, we crossed up and over into the [...] Posterior Tibial Artery: Entire PT is a AFTER SCHOOL TEACHER. Left Peroneal Artery: The left peroneal artery revealed no evidence of significant disease. Left Dorsalis Pedis Artery: Mid distal DP is a AFTER SCHOOL TEACHER. Peripheral Interventions: We exchanged the short right ADULT DAYCARE COORDINATOR sheath into a 6F 45 cm Jose sheath. We crossed into the distal PTusing Command wire. We performed multiple runs of the entire left SFA [except for the stent segement] and proximal popliteal using M hawk device, followed by ROOM SERVICE FOOD SERVER and DCB. Percutaneous peripheral intervention of the [...] CONCLUSIONS: 1. LLE severe claudication and CLI [facility] class V: Patient status post successful revascularization using directional atherectomy_PTA_DCB to entire left SFA and popliteal with good results. 2. Continue home Plavix, resume home Eliquis tomorrow. 3. Follow-up in the clinic in 4 wee (more content not included)...UHRadiology, Radiologist, MD - 06/21/2024 [facility], Snack Stewardess, [address] [place] [address] Cardiovascular Catheterization Report Patient Name: DIANN PATEL Performing Physician: [id number] Curry MD Study Date: 06/21/2024 Verifying Physician: Tatum Curry MD MRN/PID: [id number] Drag Out Worker/Co-scrub: Ordering Physician: [id number] MARGARETH ESCAMILLA Date of /Age: 8 1955 / 68 years Fellow: [id number] Braeden Colin MD Gender: F Fellow: Study: Peripheral Intervention Procedure Description: After infiltration with 2% Lidocaine utilizing two-dimensional ultrasound and fluoroscopic guidance, the right femoral artery was cannulated with a Micro- Access Kit using a modified Seldinger technique. Subsequently a 5 Honduran sheath was placed contralateral in the right femoral artery. The arterial sheath was sized up to 6 [place]uran. After completion of the procedure, A 6/7F Vascade Closure System was placed per protocol. Following routine access via the right ADULT DAYCARE COORDINATOR, we crossed up and over into the [...] Posterior Tibial Artery: Entire PT is a AFTER SCHOOL TEACHER. Left Peroneal Artery: The left peroneal artery revealed no evidence of significant disease. Left Dorsalis Pedis Artery: Mid distal DP is a AFTER SCHOOL TEACHER. Peripheral Interventions: We exchanged the short right ADULT DAYCARE COORDINATOR sheath into a 6F 45 cm Jose sheath. We crossed into the distal PTusing Command wire. We performed multiple runs of the entire left SFA [except for the stent segement] and proximal popliteal using M hawk device, followed by ROOM SERVICE FOOD SERVER and DCB. Percutaneous peripheral intervention of the [...] CONCLUSIONS: 1. LLE severe claudication and CLI [facility] class V: Patient status post successful revascularization using directional atherectomy_PTA_DCB to entire left SFA and popliteal with good results. 2. Continue home Plavix, resume home Eliquis tomorrow. 3. Follow-up in the clinic in 4 weeks with repeat BRIDGER/TBI. If medial malleolus wound does not heal,then may consider PT intervention. ICD 10 Codes: Atherosclerosis of quinault arteries of extremities with intermittent claudication, left leg-I70.212;Atherosclerosis of quinault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 with ulceration of other part of foot-I70.245 CPT Codes: Angiography, Each 1st additional vessel studied after (more content not included)...NOMS HealthcareINVASIVE VASCULAR PROCEDUREInspira Medical Center Mul[facility] Hill, Snack Stewardess, [address] [place] [address] Cardiovascular Catheterization Report Patient Name: DIANN PATEL Performing Physician: [id number] Curry MD Study Date: 06/21/2024 Verifying Physician: [id number] Curry MD MRN/PID: [id number] Drag Out Worker/Co-scrub: Ordering Physician: [id number] MARGARETH ESCAMILLA Date of /Age: 8 1955 / 68 years Fellow: [id number] Braeden Colin MD Gender: F Fellow: Study: Peripheral Intervention Procedure Description: After infiltration with 2% Lidocaine utilizing two-dimensional ultrasound and fluoroscopic guidance, the right femoral artery was cannulated with a Micro- Access Kit using a modified Seldinger technique. Subsequently a 5 Honduran sheath was placed contralateral in the right femoral artery. The arterial sheath was sized up to 6 [place]uran. After completion of the procedure, A 6/7F Vascade Closure System was placed per protocol. Following routine access via the right ADULT DAYCARE COORDINATOR, we crossed up and over into the [...] Posterior Tibial Artery: Entire PT is a AFTER SCHOOL TEACHER. Left Peroneal Artery: The left peroneal artery revealed no evidence of significant disease. Left Dorsalis Pedis Artery: Mid distal DP is a AFTER SCHOOL TEACHER. Peripheral Interventions: We exchanged the short right ADULT DAYCARE COORDINATOR sheath into a 6F 45 cm Jose sheath. We crossed into the distal PTusing Command wire. We performed multiple runs of the entire left SFA [except for the stent segement] and proximal popliteal using M hawk device, followed by ROOM SERVICE FOOD SERVER and DCB. Percutaneous peripheral intervention of the [...] PT intervention. ICD 10 Codes: Atherosclerosis of quinault arteries of extremities with intermittent claudication, left leg-I70.212;Atherosclerosis of quinault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 with ulceration of other part of foot-I70.245 CPT Codes: Angiography, Each 1st additional vessel studied after basic exam-72196; Angiography, Extremity,uni,S&I (PER)-82256; Ultrasound guidance for vascular access-89022; Revasc Fem/Po (more content not included)...[facility] HospitalRadiology Study observation (narrative)[facility] HealthcareINVASIVE VASCULAR PROCEDUREOrdered By: Radiologist Radiology on 59-97-1290J[employer]PU [employer] Work Phone: Invasive vascular procedureon 06-21-2024 [facility], Snack Stewardess, [address] [place] [address] Cardiovascular Catheterization Report Patient Name: DIANN PATEL Performing Physician: [id number] Curry MD Study Date: 06/21/2024 Verifying Physician: [id number] Curry MD MRN/PID: [id number] Drag Out Worker/Co-scrub: Ordering Physician: [id number] MARGARETH ESCAMILLA Date of /Age: 8 1955 / 68 years Fellow: [id number] Braeden Colin MD Gender: F Fellow: Study: Peripheral Intervention Procedure Description: After infiltration with 2% Lidocaine utilizing two-dimensional ultrasound and fluoroscopic guidance, the right femoral artery was cannulated with a Micro- Access Kit using a modified Seldinger technique. Subsequently a 5 Honduran sheath was placed contralateral in the right femoral artery. The arterial sheath was sized up to 6 Honduran. After completion of the procedure, A 6/7F Vascade Closure System was placed per protocol. Following routine access via the right ADULT DAYCARE COORDINATOR, we crossed up and over into the [...] Posterior Tibial Artery: Entire PT is a AFTER SCHOOL TEACHER. Left Peroneal Artery: The left peroneal artery revealed no evidence of significant disease. Left Dorsalis Pedis Artery: Mid distal DP is a AFTER SCHOOL TEACHER. Peripheral Interventions: We exchanged the short right ADULT DAYCARE COORDINATOR sheath into a 6F 45 cm Jose sheath. We crossed into the distal PTusing Command wire. We performed multiple runs of the entire left SFA [except for the stent segement] and proximal popliteal using M hawk device, followed by ROOM SERVICE FOOD SERVER and DCB. Percutaneous peripheral intervention of the [...] CONCLUSIONS: 1. LLE severe claudication and CLI [facility] class V: Patient status post successful revascularization using directional atherectomy_PTA_DCB to entire left SFA and popliteal with good results. 2. Continue home Plavix, resume home Eliquis tomorrow. 3. Follow-up in the clinic in 4 wee (more content not included)...Nely Hoffman MD - 06/21/2024 [facility], Snack Stewardess, [address] [place] [address] Cardiovascular Catheterization Report Patient Name: DIANN PATEL Performing Physician: [id number] Curry MD Study Date: 06/21/2024 Verifying Physician: [id number] Curry MD MRN/PID: [id number] Drag Out Worker/Co-scrub: Ordering Physician: [id number] MARGARETH ESCAMILLA Date of /Age: 8 1955 / 68 years Fellow: [id number] Braeden Colin MD Gender: F Fellow: Study: Peripheral Intervention Procedure Description: After infiltration with 2% Lidocaine utilizing two-dimensional ultrasound and fluoroscopic guidance, the right femoral artery was cannulated with a Micro- Access Kit using a modified Seldinger technique. Subsequently a 5 Honduran sheath was placed contralateral in the right femoral artery. The arterial sheath was sized up to 6 Honduran. After completion of the procedure, A 6/7F Vascade Closure System was placed per protocol. Following routine access via the right ADULT DAYCARE COORDINATOR, we crossed up and over into the [...] Posterior Tibial Artery: Entire PT is a AFTER SCHOOL TEACHER. Left Peroneal Artery: The left peroneal artery revealed no evidence of significant disease. Left Dorsalis Pedis Artery: Mid distal DP is a AFTER SCHOOL TEACHER. Peripheral Interventions: We exchanged the short right ADULT DAYCARE COORDINATOR sheath into a 6F 45 cm Jose sheath. We crossed into the distal PTusing Command wire. We performed multiple runs of the entire left SFA [except for the stent segement] and proximal popliteal using M hawk device, followed by ROOM SERVICE FOOD SERVER and DCB. Percutaneous peripheral intervention of the [...] CONCLUSIONS: 1. LLE severe claudication and CLI [facility] class V: Patient status post successful revascularization using directional atherectomy_PTA_DCB to entire left SFA and popliteal with good results. 2. Continue home Plavix, resume home Eliquis tomorrow. 3. Follow-up in the clinic in 4 weeks with repeat BRIDGER/TBI. If medial malleolus wound does not heal,then may consider PT intervention. ICD 10 Codes: Atherosclerosis of quinault arteries of extremities with intermittent claudication, left leg-I70.212;Atherosclerosis of quinault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 with ulceration of other part of foot-I70.245 CPT Codes: Angiography, Each 1st additional vessel studied after basic exa (more content not included)...[facility] Work Phone: [facility] Work Phone: Radiology Study observation (narrative)[facility] Work Phone: US.doppler Extremity arteries - bilateral for physiologic artery study at rest and with exerciseon 06-16-2024 [place] [address] and Vascular Lab Report VASC US PVR WITHOUT EXERCISE Patient Name: DIANN AMANDA Reading Physician: [id number] Christine Beyer MD Study Date: 06/15/2024 Ordering Physician: [id number] MICHEAL NOVA MRN/PID: [id number] Technologist: Miles Costello RVT Technologist 2: Date of /Age: 8 1955 / 68 years Gender: F Admission Status: Outpatient Location Performed: [facility] Diagnosis/ICD: Peripheral vascular disease, unspecified-I73.9 CPT Codes: 45098 Peripheral artery PVR (multi segmental pressure CRITICAL [...] Left Brachial Pressure 171 mmHg 163 mmHg [id number] Christine Beyer MD Final Radiology, Radiologist, MD - 06/16/2024 [place] [address] and Vascular Lab Report VASC US PVR WITHOUT EXERCISE Patient Name: DIANN PATEL Reading Physician: [id number] Christine Beyer MD Study Date: 06/15/2024 Ordering Physician: [id number] NOVA MRN/PID: [id number] Technologist: Miles Costello RVT Technologist 2: Date of /Age: 8 1955 / 68 years Gender: F Admission Status: Outpatient Location Performed: [facility] Diagnosis/ICD: Peripheral vascular disease, unspecified-I73.9 CPT Codes: 69178 Peripheral artery PVR (multi segmental pressure CRITICAL RESULT Critical Result: Severe PAD in left leg. Notification called to MICEHAL NOVA APRN-SAXOPHONE TEACHER on 06/15/2024 at 10:50:00 AM by Miles [...] Left Brachial Pressure 171 mmHg 163 mmHg [id number] Christine Beyer MD Final [facility].doppler Extremity arteries - bilateral for physiologic artery study at rest and with exerciseOrdered By: Radiologist Radiology on 06-16-2024 [facility] [employer] Work Phone: cBC panel Auto (Bld)on 34-98-4326Teiifnqjlfa distribution width (RBC) [Ratio]14.6 %High11.5 - 14.5 %[facility] HospitalHematocrit (Bld) [Volume fraction]35.8 %Low36.0 - 46.0 %[facility] HospitalHemoglobin (Bld) [Mass/Vol]11.9 g/dLLow12.0 - 16.0 g/dL [facility] HospitalInterpretation and review of laboratory results AbnormalUnUniversity Hospitals Ahuja Medical Center (RBC) [Entitic mass]27.7 pg26.0 - 34.0 pgUnOur Lady of Mercy Hospital - Anderson (RBC) [Mass/Vol]33.2 g/dL32.0 - 36.0 g/dLUnNavarro Regional Hospital ClevelandMCV (RBC) [Entitic vol]83 fL80 - 100 fLUniMercy Health Defiance HospitalNucleated RBC/100 WBC (Bld) [Ratio]0.0 % [facility] HospitalPlatelets (Bld) [#/Vol]211 10*3/[facility] HospitalRBC (Bld) [#/Vol]4.30 10*6/[facility] HospitalWBC (Bld) [#/Vol]13.3 10*3/[facility] Medical CenterErythrocyte distribution width (RBC) [Ratio] 14.6 %High11.5-14.5UnEast Ohio Regional HospitalComment on above:Performed By: #### 58735-9 #### MOHIT Car (15780) [facility] ([facility]) [address] [place] [address] 41355Gvufkmhvkz (Bld) [Volume fraction]35.8 %Low36.0-46.0 [facility] HospitalComment on above:Performed By: #### 20830-0 #### MOHIT Car (46659) [facility] ([facility]) [address] [place] [address] 39358Zrmdkupksv (Bld) [Mass/Vol]11.9 g/dLLow12.0-16.0UnEast Ohio Regional HospitalComment on above:Performed By: #### 29708-1 #### MOHIT Car (84912) [facility] ([facility]) [address] [place] [address] 06169IAE (RBC) [Entitic mass]27.7 ziStfwsc45.0-34.0UnEast Ohio Regional HospitalComment on above:Performed By: #### 68219-0 #### MOHIT Car (57350) [facility] ([facility]) [address] [place] [address] 69573RIWS (RBC) [Mass/Vol]33.2 g/nQOhfwrz95.0-36.0UnEast Ohio Regional HospitalComment on above:Performed By: #### 14015-3 #### MOHIT Car (82083) [facility] ([facility]) [address] [place], [place] [address]ECZ (RBC) [Entitic vol]83 vFXbdapm72-508DnxgpgryoqEast Ohio Regional HospitalComment on above:Performed By: #### 25154-2 #### MOHIT Car (81407) [facility] ([facility]) [address] [place], [place] [address]Uzchhcsti RBC/100 WBC (Bld) [Ratio]0.0 /100 WBCsNormal0.0-0.0 [facility] HospitalComment on above:Performed By: #### 33724-6 #### MOHIT Car (81595) [facility] ([facility]) [address] [place] [address] 10028Qptaezusf (Bld) [#/Vol]211 x10*3/pDLhpeto972-986PtrangxfymEast Ohio Regional HospitalComment on above:Performed By: #### 20506-0 #### MOHIT Car (16144) [facility] ([facility]) [address] [place], [place] [address]WLC (Bld) [#/Vol]4.30 x10*6/uLNormal4.00-5.20UnEast [place] Regional HospitalComment on above:Performed By: #### 66601-8 #### MOHIT Car (15223) [facility] ([facility]) [address] [place] [address] 327[address]WVQ (Bld) [#/Vol]13.3 x10*3/uLHigh4.4-11.3[facility] HospitalComment on above:Performed By: #### 75205-0 #### MOHIT Car (87098) [facility] ([facility]) [address] [place] [address] 66638Xiikrvxnqrw tissue factor inducedon 90-51-2947RU Coag (PPP) [Time]12.6 sNormal9.8-12.8UnEast Ohio Regional HospitalComment on above:Performed By: #### 5902-2 #### MOHIT Car (90782) [facility] ([facility]) [address] [place], [place] [address]SJ Coag (PPP) [Time]on 55-13-2821IBV Coag (PPP) [Relative time]1.1 {INR}0.9 - 1.1UnSalem Regional Medical CenterInterpretation and review of laboratory resultsNormalUniMercy Health Defiance HospitalUnSalem Regional Medical CenterINR Coag (PPP) [Relative time]1.5Sifpys1.9-1.1UnEast Ohio Regional HospitalComment on above:Performed By: #### 5902-2 #### MOHIT Car (19960) [facility] ([facility]) [address] [place], [place] [address]Wztapef-NBNxs 96-08-9854ZL Coag (PPP) [Time]12.6 Premier HealthRenal function 2000 panelon 26-19-3007Gkiabkd BCP dye [Mass/Vol]4.7 g/dL3.4 - 5.0 g/dLUnSalem Regional Medical CenterAnion gap [Moles/Vol]14 mmol/L10 - 20 mmol/[facility] Health AdministrationCalcium [Mass/Vol]9.8 mg/dL8.6 - 10.6 mg/dLUnSalem Regional Medical CenterChloride [Moles/Vol]104 mmol/L98 - 107 mmol/[facility] Health AdministrationCO2 [Moles/Vol]25 mmol/L21 - 32 mmol/[facility] AdministrationCreatinine [Mass/Vol]1.36 mg/dLHigh0.50 - 1.05 mg/dLUnSalem Regional Medical Center GFR/1.73 sq M.predicted among non-blacks MDRD (S/P/Bld) [Vol rate/Area]42 mL/min/{1.73_m2}Low PINFUniMercy Health Defiance HospitalComment on above: Calculations of estimated GFR are performed using the 2020 CKD-EPI Study Refit equation without therace variable for the IDMS-Traceable creatinine methods. https://jasn.asnjournals.org/content//ASN.5353931771 Glucose [Mass/Vol]205 mg/hTWkyi27 - 99 mg/dLUnSalem Regional Medical Center Interpretation and review of laboratory resultsAbnoalUniMercy Health Defiance HospitalPhosphate [Mass/Vol]4.1 mg/dL2.5 - 4.9 mg/dLOhioHealth Hardin Memorial HospitalComment on above:The performance characteristics of phosphorus testing in heparinized plasma have been validated by the individual laboratory site where testing is performed. Testing on heparinized plasma is not approved by the FDA; however, such approval is not necessary.Potassium [Moles/Vol]5.5 mmol/L High3.5 - 5.3 mmol/[facility] Health AdministrationSodium [Moles/Vol]137 mmol/L136 - 145 mmol/[facility] AdministrationUrea nitrogen [Mass/Vol] 53 mg/dLHigh6 - 23 mg/dLUnSalem Regional Medical CenterUnSalem Regional Medical CenterAlbumin BCP dye [Mass/Vol]4.7 g/dLNormal3.4-5.0UnEast [place] Regional HospitalComment on above:Performed By: #### 52199-5 #### MOHIT Car (14698) [facility] ([facility]) [address] [place] [address] 97[address]Wzwpb gap [Moles/Vol]14 mmol/KNdgjri97-40IzhctucggmEast Ohio Regional HospitalComment on above:Performed By: #### 73446-5 #### MOHIT Car (24030) [facility] ([facility]) [address] [place] [address] 31493Ewhvrea [Mass/Vol]9.8 mg/dLNormal8.6-10.6UnEast [place] Regional HospitalComment on above:Performed By: #### 56755-9 #### MOHIT Car (84219) [facility] ([facility]) [address] [place] [address] 96836Htntzute [Moles/Vol]104 mmol/FPrupxi12-435AhreahgqvpEast Ohio Regional HospitalComment on above:Performed By: #### 90110-3 #### MOHIT Car (51765) [facility] ([facility]) [address] [place], [place] [address]CA1 [Moles/Vol]25 mmol/TWbmjed69-33EtvdmpijzwEast Ohio Regional HospitalComment on above:Performed By: #### 08771-6 #### MOHIT Car (55337) [facility] ([facility]) [address] [place], [place] [address]Uvaxodvjhz [Mass/Vol]1.36 mg/dLHigh0.50-1.05UnEast [place] Regional HospitalComment on above:Performed By: #### 01540-0 #### MOHIT Car (90231) [facility] ([facility]) [address] [place] [address] 90506Zjzidoysrt filtration rate/1.73 sq M.hyjzcojgf35 mL/min/1.73m*2Low>60UnEast [place] Regional HospitalComment on above:Result Comment: Calculations of estimated GFR are performed using the 2020 CKD-EPI Study Refit equation without the race variable for the IDMS-Traceable creatinine methods. https://jasn.asnjournals.org/content//ASN.0741022141Zoqepipgh By: #### 39555-4 #### MOHIT Car (58236) [facility] ([facility]) [address] [place], [place] [address]Tiienot [Mass/Vol]205 mg/xNYxpy70-55OxgbyzaeyaEast Ohio Regional HospitalComment on above:Performed By: #### 86697-5 #### MOHIT Car (40636) [facility] ([facility]) [address] [place] [address] 92796Jsfnhhzcs [Mass/Vol]4.1 mg/dLNormal2.5-4.9UnEast [place] Regional HospitalComment on above:Result Comment: The performance characteristics of phosphorus testing in heparinized plasma have bee n validated by the individual laboratory site where testing is performed. Testing on heparinizedplasma is not approved by the FDA; however, such approval is not necessary.Performed By: #### 30408-5 #### MOHIT Car (93743) [facility] ([facility]) [address] [place], [place] [address]Gwzlxoiri [Moles/Vol]5.5 mmol/LHigh3.5-5.3[facility] HospitalComment on above:Performed By: #### 32648-2 #### MOHIT Car (58756) [facility] ([facility]) [address] [place] [address] 667[address]Wkdyxp [Moles/Vol]137 mmol/UThmwcf628-456OujzssvdpjEast Ohio Regional HospitalComment on above:Performed By: #### 00448-3 #### MOHIT Car (65641) [facility] ([facility]) [address] [place] [address] 07951Kltn nitrogen [Mass/Vol]53 mg/dLHigh6-23[facility] HospitalComment on above:Performed By: #### 35495-5 #### MOHIT Car (02184) [facility] ([facility]) [address] [place] [address] 11471YF.doppler Extremity arteries - bilateral for physiologic artery study at rest and with exerciseon 65-93-8223Hbgdhbiuf Study observation (narrative)[facility] US PVR WITH EXERCISEon 57-43-0933RCQS US PVR WITH EXERCISE[address] [address] and Vascular Lab Report [facility] US PVR WITHOUT EXERCISE Patient Name: DIANN Raines Physician: [id number] Christine Beyer MD Study Date: 06/15/2024 Ordering Physician: [id number] MICHEAL NOVA MRN/PID: [id number] Technologist: Miles Costello RVT Technologist 2: Date of /Age: 8 1955 / 68 years Gender: F Admission Status: Outpatient Location Performed: [facility] Diagnosis/ICD: Peripheral vascular disease, unspecified-I73.9 CPT Codes: 92687 Peripheral artery PVR (multi segmental pressure CRITICAL [...] Left Brachial Pressure 171 mmHg 163 mmHg [id number] Christine Beyer MD Final [facility] HospitalCreatinine [Mass/volume] in Serum or PlasmaOrdered By: Rodrigo Yousif on 05-19-2024 Creatinine [Mass/Vol]0.98 mg/dL0.60-1.20[facility] HospitalNo Panel InformationOrdered By: Rodrigo Yousif on 79-88-0909Enipawgoh GFR (CKD-EPI)> 60.0 mL/MinMercer County Community HospitalPharmacy Creatinine Clearance (Chem51.32[facility] HospitalUrea nitrogen [Mass/volume] in Serum or PlasmaOrdered By: Rodrigo Yousif on 93-84-6580Hcai nitrogen [Mass/Vol]40 mg/dLFall River General HospitalSt. Charles HospitalEGMENTAL BLOOD PRESSUREon 89-63-4164M[address] [address] Cardiology Report Signed Patient: DIANN PATEL MR#: [id number] : 1955 Acct:[id number] Age/Sex: 68 / F ADM Date: 12/03/23 Loc: CARD Attending Dr: ALEXIS GILMORE Ordering Physician: ALEXIS GILMORE Date of Service: 12/03/23 Procedure(s): CA segmental UE or LE LIZETH Accession Number(s): [id number] cc: CHAMP BELL ; ALEXIS GILMORE [facility] Test Date: 2023-12-03 Pat Name: DIANN PATEL Department: Room: - Gender: Female 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[employer] : 1955 Requested By: ALEXIS GILMORE Order Number: [id number] Reading MD: LIZETTE MCGHEE Interpretive Statements Monophasic [...] 12/04/23 0727 12/04/23 0727 DD/ 1346 TD/TT: Ios Developer:JULIOHRadiology, Radiologist, - 12/04/2023 [place] [address] Cardiology Report Signed Patient: DIANN PATEL MR#: [id number] : 1955 Acct:[id number] Age/Sex: 68 / F ADM Date: 12/03/23 Loc: CARD Attending Dr: ALEXIS GILMORE Ordering Physician: ALEXIS GILMORE Date of Service: 12/03/23 Procedure(s): CA segmental UE or LE LIZETH Accession Number(s): [id number] cc: CHAMP BELL ; ALEXIS GILMORE [facility] Test Date: 2023-12-03 Pat Name: DIANN PATEL Department: Room: - Gender: Female 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[employer] : 1955 Requested By: ALEXIS GILMORE Order Number: [id number] Reading MD: LIZETTE MCGHEE Interpretive Statements Monophasic [...] 12/04/23 0727 12/04/23 0727 DD/ 1346 TD/TT: Ios Developer: PRIYANKA PerdomoSEGMENTAL BLOOD PRESSUREOrdered By: Radiologist Radiology on 78-37-3560PXRH [employer] Work Phone: SEGMENTAL BLOOD PRESSUREon 77-76-5890Zqocynosn Study observation (narrative)[facility] HealthcareCT STROKE HEAD WOon 01-24-7868FR STROKE HEAD WOHEAD CT WITHOUT CONTRAST: 01/31/2023 [...] Electronically authenticated by: CHANTAL KILLIAN Date: 2023-01-31 12:44[facility] CenterCreatinine and Glomerular filtration rate.predicted panel (S/P/Bld)Ordered By: Geo Mathew on 46-21-8450Rcqczcvydj [Mass/Vol]1.75 mg/dL0.44-1.03[facility] HospitalEstimated glomerular filtration rate (GFR) non- AmericanOrdered By: Geo Mathew on 01-13-2023 GFR/1.73 sq M.predicted among non-blacks MDRD (S/P/Bld) [Vol rate/Area]29 mL/Min [facility] HospitalNo Panel InformationOrdered By: Geo Mathew on 85-29-1231Bcdmzuqby GFR ()35 mL/MinMercer County Community HospitalComment on above:GFR estimated reference range: According to KDOQI guidelines, <60 ml/min/1.73m2 is sufficient todiagnose a patient with chronic kidney disease.Pharmacy Creatinine Clearance (Chem27.91[facility] HospitalUrea nitrogen [Mass/volume] in Serum or PlasmaOrdered By: Geo Mathew on 10-67-0224Vnue nitrogen [Mass/Vol]48 mg/dL9-[facility] Community HospitalALBUMINon 85-85-0277Syqerbz [Mass/Vol]3.5 g/dLNormal 3.4-5.0The [facility] HospitalComment on above:Performed By: #### BMP, PREALB, ALB ####[facility] [address] [place] [address]Dr. Sruthi LariosC AUTO DIFFon 29-68-4751TDPM #0.0 103/ulNormal0.0-0.1The [facility] Memorial HospitalComment on above:Performed By: #### CBC #### [facility] [address] [address] [address] Sruthi ArechigaBasophils/100 WBC (Bld)0.5 %Normal0.2-2.0The [facility] Comment on above:Performed By: #### CBC #### [facility] [address] [place] [address] [address] Sruthi Shields #0.3 103/ulNormal0.0-0.7The [facility]Hyde Memorial HospitalComment on above: Performed By: #### CBC #### [facility] [address] [place] [address] [address] Sruthi Joyosinophils/100 WBC (Bld)3.6 %Normal0.9-7.0The [facility] Comment on above:Performed By: #### CBC #### [facility] [address] [address] [address] Sruthi Joyrythrocyte distribution width (RBC) [Ratio]14.5 %Ebnjsn06.0-15.0 The [facility] HospitalComment on above:Performed By: #### CBC #### [facility] [address] [address] [address] Sruthi ArechigaHematocrit (Bld) [Volume fraction]37.7 %Vvbfee76.0-48.0The [facility] Memorial HospitalComment on above:Performed By: #### CBC #### [facility] [address] [address] [address] Sruthi ArechigaHemoglobin (Bld) [Mass/Vol]11.9 g/dLCritically low12.0-16.0The [facility] on above:Performed By: #### CBC #### [facility] [address] [address] [address] Sruthi Conklin #0.02 10e3/ulNormal0.00-0.03The [facility] on above:Performed By: #### CBC #### [facility] [address] [place] [address] Dr. Sruthi Conklin %0.2 %Normal0.0-0.5The [facility] on above: Performed By: #### CBC #### [facility] [address] [place] [address] Dr. Sruthi Serrano #2.7 103/ulNormal1.2-3.8The [facility] on above:Performed By: #### CBC #### [facility] [address] [place] [address] Dr. Sruthi Tijerinahocytes/100 WBC (Bld)32.2 %Cqeqzg38.5-60.0The [facility] on above:Performed By: #### CBC #### [facility] [address] [place] [address] Dr. Sruthi ToscanoUAL DIFF REQNONormalThe [facility] on above: Performed By: #### CBC #### [facility] [address] [place] [address] Dr. Sruthi Torres (RBC) [Entitic mass]26.8 fhCcdelf86.7-34.0The [facility] on above:Performed By: #### CBC #### [facility] [address] [place] [address] Dr. Sruthi Torres (RBC) [Mass/Vol]31.6 g/lQUtnjqc35.9-35.2The [facility] on above:Performed By: #### CBC #### [facility] [address] [place] [address] Dr. Sruthi Torres (RBC) [Entitic vol]84.9 gHVhtfon44.0-99.0The [facility]in HospitalComment on above:Performed By: #### CBC #### [facility] [address] [address] [address] Sruthi Valladares #0.8 103/ulNormal0.3-0.8The [facility] Memorial HospitalComment on above:Performed By: #### CBC #### [facility] [address] [address] [address] Sruthi Alegriaocytes/100 WBC (Bld)9.6 %Normal1.7-12.0The [facility] Comment on above:Performed By: #### CBC #### [facility] [address] [place] [address] Dr. Sruthi Carl #4.5 103/ulNormal1.4-6.5The [facility] Memorial HospitalComment on above:Performed By: #### CBC #### [facility] [address] [place] [address] Dr. Sruthi Gomezutrophils/100 WBC (Bld)53.9 %Ndqons18.0-75.0The [facility] Memorial HospitalComment on above:Performed By: #### CBC #### [facility] [address] [place] [address] Dr. Sruthi Flores mean volume (Bld) [Entitic vol]10.8 fLNormal9.5-13.5The [facility] Memorial HospitalComment on above:Performed By: #### CBC #### [facility] [address] [place] [address] Dr. Sruthi ArechigaPLT246 103/eyAkygua802-018Zbu [facility] HospitalComment on above: Performed By: #### CBC #### [facility] [address] [place] [address] Dr. Sruthi ArechigaRBC4.44 106/ulNormal4.20-5.40The [facility] Memorial HospitalComment on above:Performed By: #### CBC #### [facility] [address] [place] [address] Dr. Sruthi ArechigaWBC8.4 103/ulNormal4.0-11.0The [facility]Hy[facility] Memorial HospitalComment on above: Performed By: #### CBC #### [facility] [address] [address] [address] Sruthi Choevid-19 PCR ([facility]VDHAV[facility])on 85-72-0425AAFF-CoV-2 (COVID-19) RNA KOLE+probe Ql (Unsp spec)Not detectedNormalNOT DETECTEDCommunity Memorial Hospital Comment on above:Result Comment: This test is not yet approved or cleared by the [place] FDA. When there are no FDA-approved or cleared tests available, and other criteria are met, FDA can make tests available under an emergency access mechanism called an Emergency Use Authorization (EUA). The EUA for this test is supported by the Patient Advocate of Health and Human Service's (HHS's) declaration [...] consistent with SARS-CoV-2.Performed By: #### CVDTBH #### [facility] [address] [place] [address] Dr. Sruthi ArechigaGLYCOHEMOGLOBIN A1Con 71-89-0595DWW RECOMMENDATIONSEE BELOWNormal The [facility] HospitalComcorewell health gerber hospital on above:Result Comment: ADA RECOMMENDED LIMIT 4.0 - 6.0 ADA THERAPEUTIC TARGET < 7.0 ACTION SUGGESTED > 7.0Performed By: #### HSTROPN #### [facility] [address] [place] [address] Dr. Sruthi ArechigaGlucose [Mass/Vol]255 mg/dLNormalThRegional Medical Center on above:Performed By: #### HSTROPN #### [facility] [address] [place] [address] Dr. Sruthi ArechigaHbA1c (Bld) [Mass fraction]10.5 %Critically high4.5-6.2The [facility]Hyde Memorial HospitalComment on above:Performed By: #### HSTROPN #### [facility] [address] [address] [address] Sruthi CEJA #1on 55-19-0264EMRC NARES #1Culture Observations: NO GROWTH OF MRSA AT 48 HOURS.NormalThe Buffalo HospitalComment on above: Performed By: #### MRSAN1 ####[facility] [address] [place], [place] [address]Dr. Sruthi ChangPREALBUMINon 62-63-1718Fwaugjinew [Mass/Vol]23.6 mg/mUZvlscd21.9-45.5The [facility]Hy[facility] Memorial HospitalComment on above: Performed By: #### BMP, PREALB, ALB ####[facility] [address] [place], [place] [address]Dr. Sruthi ChangPROF CHEM 8 (BAS METB)on 89-84-3561Skvvv gap [Moles/Vol]11.2 mmol/LNormalThe Buffalo HospitalComment on above:Performed By: #### BMP, PREALB, ALB ####[facility] [address] [place], [place] [address]Dr. Sruthi ChangCalcium [Mass/Vol]9.1 mg/dL Normal8.5-10.1The [facility]Hy[facility] Memorial HospitalComment on above:Performed By: #### BMP, PREALB, ALB ####[facility] [address] [place], [place] [address]Dr. Yilan ChangChloride [Moles/Vol]105 mmol/UDacofd15-499Het [facility] HospitalComment on above:Performed By: #### BMP, PREALB, ALB ####[facility] [address] [place], [place] [address]Dr. Kamalalan ChangCO2 [Moles/Vol]26.3 mmol/YLoyzso79.0-32.0The [facility]Hy[facility] Memorial HospitalComment on above: Performed By: #### BMP, PREALB, ALB ####[facility] [address]alk[address] [place], [place] [address]Dr. Yilan ChangCreatinine [Mass/Vol]0.72 mg/dL Normal0.55-1.02The [facility]Hyde Memorial HospitalComment on above:Performed By: #### BMP, PREALB, ALB ####[facility] [address] [address]Dr. Yilan ChangEGFR-AF SAMMARINESE>60Normal>=60The [facility]-Hyde Memorial HospitalComment on above:Performed By: #### BMP, PREALB, ALB ####[facility] [address] [place] [address]Dr. Yilan ChangEGFR-NON AF SAMMARINESE>60Normal >=60The [facility] HospitalComment on above:Performed By: #### BMP, PREALB, ALB ####[facility] [address]akmxus[address] [place] [address] [address]Dr. Yilan ChangGlucose [Mass/Vol]119 mg/dLCritically pwnh83-081Zdq [facility] Comment on above:Performed By: #### BMP, PREALB, ALB ####[facility] Bzzotqocrq[address] [place], [place] [address]Dr. Yilan ChangPotassium [Moles/Vol]4.5 mmol/LNormal3.5-5.1The [facility] HospitalComment on above: Performed By: #### BMP, PREALB, ALB ####[facility] [address]fr[address] [place] [address]Dr. Yilan ChangSodium [Moles/Vol]138 mmol/LNormal 136-145The [facility] HospitalComment on above:Performed By: #### BMP, PREALB, ALB ####[facility] Mysihtyrps[address] [place] [address] [address]Dr. Yilan ChangUrea nitrogen [Mass/Vol]18.0 mg/dLNormal7.0-18.0The [facility] Comment on above:Performed By: #### BMP, PREALB, ALB ####[facility] [address]grbbpbr[address] [place] [address]Dr. Yilan ChangUrea nitrogen/Creatinine [Mass ratio]25.0 mg/mgNormalThe [facility] HospitalComment on above:Performed By: #### BMP, PREALB, ALB ####[facility] [address]sy[address] [place] [id number]. Sruthi ArechigaCovid-19 PCR (CVDTB)on 99-79-1058RYLI-CoV-2 (COVID-19) RNA KOLE+probe Ql (Unsp spec)Not detectedNormal NOT DETECTEDThe [facility] Centerment on above:Result Comment: When diagnostic testing is [...] for this test is supported by the [place] of Health and Human Service's declaration that [...] longer be used).Performed By: #### CVDTBH #### [facility] [address] [address] [address] Sruthi Sarmiento 58-40-5160Ccvmyacemqh peptide B (Bld) [Mass/Vol]1389.0 pg/mLCritically high<=900.0The [facility] HospitalComment on above:Performed By: #### BNP, BMP ####[facility] Nqchuznzga[address] [place], [place] [address]SlDr. Sruthi ArechigaCBC AUTO DIFFon [id number] #0.0 103/ulNormal0.0-0.1 The [facility] HospitalComment on above:Performed By: #### CBC ####[facility] Ehlqjltziq[address] [place] [id number].Yilan Arechiga Basophils/100 WBC (Bld)0.5 %Normal0.2-2.0The [facility] HospitalComment on above: Performed By: #### CBC ####[facility] Ssithobqgj[address] [place], [place] [address]Dr.Yilan ChangEO #0.2 103/ulNormal0.0-0.7The [facility] HospitalComment on above:Performed By: #### CBC ####[facility] Kevxhhpjom[address] [place], [place] [address]Dr.Sruthi ChangEosinophils/100 WBC (Bld)2.4 %Normal0.9-7.0The [facility] HospitalComment on above:Performed By: #### CBC ####[facility] Vlzawjzmmt[address] [place], [place] [address]Dr.Kamalalan ChangErythrocyte distribution width (RBC) [Ratio]13.2 %Normal 11.0-15.0The [facility] HospitalComment on above:Performed By: #### CBC ####[facility] Phocnvdgyi[address] [place], [place] [address]Dr. Kamalalan ChangHematocrit (Bld) [Volume fraction]32.4 %Critically low36.0-48.0The [facility] HospitalComment on above:Performed By: #### CBC ####[facility] Knmoyxyfzw[address] [place], [place] [address]Dr.Sruthi ChangHemoglobin (Bld) [Mass/Vol]10.2 g/dLCritically low12.0-16.0The [facility] HospitalComment on above:Performed By: #### CBC ####[facility] Glolyybrew119[address] [place], [place] [address]Dr.Kamalalan ChangIG #0.04 10e3/ulCritically high0.00-0.03 The [facility] HospitalComment on above:Performed By: #### CBC ####[facility] Ohntctjmnr[address] [place], [place] [address]Dr.Kamalalan ChangIG % 0.5 %Normal0.0-0.5The [facility] HospitalComment on above:Performed By: #### CBC ####[facility] Egsjqonfjb99[address] [place], [place] [address]Dr. Sruthi ArechigaLYH #2.1 103/ulNormal1.2-3.8The [facility] HospitalComment on above: Performed By: #### CBC ####[facility] [address]suerfvhfu[address] [place] [address]Dr.Sruthi ArechigaLymphocytes/100 WBC (Bld)23.9 %Normal 20.5-60.0The [facility] HospitalComment on above:Performed By: #### CBC ####[facility] Icoejulwds[address] [place], [place] [address]Dr. Sruthi ArechigaMANUAL DIFF REQNONormalThe [facility] HospitalComment on above: Performed By: #### CBC ####[facility] Thwxssdmxx9[address] [place], [place] [address]Dr.Sruthi ArechigaH (RBC) [Entitic mass]26.8 pgNormal 26.7-34.0The [facility] HospitalComment on above:Performed By: #### CBC ####[facility] Mmxvyaolqr[address] [place], [place] [address]Dr. Sruthi ArechigaHC (RBC) [Mass/Vol]31.5 g/hWUrnble55.9-35.2The [facility] Comment on above:Performed By: #### CBC ####[facility] Jaggvzosxy[address]62[address] [place], [place] [address]Dr.Sruthi ArechigaMCV (RBC) [Entitic vol]85.0 fL Pjrtde32.0-99.0The [facility] HospitalComment on above:Performed By: #### CBC ####[facility] Dulrajgcil4[address] [place], [place] [address]Dr. Sruthi ArechigaMONO #1.1 103/ulCritically high0.3-0.8The [facility] HospitalComment on above:Performed By: #### CBC ####[facility] Mdoobhwenx23[address] [place], [place] [address]Dr.Sruthi ArechigaMonocytes/100 WBC (Bld)13.1 %Critically high1.7-12.0The [facility] HospitalComment on above:Performed By: #### CBC ####[facility] Qveixhdhvp[address] [place] [address]Dr. Surthi ChangNEUT #5.2 103/ulNormal1.4-6.5The [facility] HospitalComment on above: Performed By: #### CBC ####[facility] Plodkiyuum[address] [place], [place] [address]Dr.Sruthi ChangNeutrophils/100 WBC (Bld)59.6 %Normal 43.0-75.0The [facility] HospitalComment on above:Performed By: #### CBC ####[facility] Gglaicqzxo45[address] [place], [place] [address]Dr. Sruthi ChangPlatelet mean volume (Bld) [Entitic vol]12.6 fLNormal9.5-13.5The [facility] HospitalComment on above:Performed By: #### CBC ####[facility] Obcgeuisaw[address] [place], [place] [address]Dr.Sruthi QzymfILX423 103/ul Critically uat137-475Eua [facility] HospitalComment on above:Performed By: #### CBC ####[facility] Nwqcyawbrb5[address] [place], [place] [address]Dr. Sruthi ChangRBC3.81 106/ulCritically low4.20-5.40The [facility] on above:Performed By: #### CBC ####[facility] Vesonrplpi[address] [place], [place] [address]Dr.Sruthi ChangWBC8.7 103/ulNormal4.0-11.0The [facility] HospitalComment on above:Performed By: #### CBC ####[facility] Sodkyrywlk[address] [place], [place] [address]Dr.Sruthi ChangPROF CHEM 8 (BAS METB)on 57-49-4382Jeyub gap [Moles/Vol]12.0 mmol/LNormalThe [facility] HospitalComment on above:Performed By: #### BNP, BMP ####[facility] Mexjthtong21[address] [place], [place] [address]Dr. Kamalasven ChangCalcium [Mass/Vol]9.0 mg/dLNormal8.5-10.1The [facility] HospitalComment on above:Performed By: #### BNP, BMP ####[facility] Jjofsirwqu[address] [place], [place] [address]Dr. Yilan ChangChloride [Moles/Vol]99 mmol/LNormal 98-107The [facility] HospitalComment on above:Performed By: #### BNP, BMP ####[facility] Ovxbchjppr[address] [place], [place] [address]Dr. Yilan ChangCO2 [Moles/Vol]29.4 mmol/YVoqpuo89.0-32.0The [facility] HospitalComment on above:Performed By: #### BNP, BMP ####[facility] Iquidzeyjr[address] [place], [place] [address]Dr. Yilan ChangCreatinine [Mass/Vol]0.86 mg/dL Normal0.55-1.02The [facility] HospitalComment on above:Performed By: #### BNP, BMP ####[facility] Drejryvubc[address] [place], [place] [address]Dr. Yilan ChangEGFR-AF SAMMARINESE>60Normal>=60The [facility] HospitalComcorewell health gerber hospital on above: Performed By: #### BNP, BMP ####[facility] Vimwiryigw[address] [place], [place] [address]Dr. Yilan ChangEGFR-NON AF SAMMARINESE>60Normal>=60The [facility] HospitalComcorewell health gerber hospital on above:Performed By: #### BNP, BMP ####[facility] Qyohwioewr[address] [place], [place] [address]Dr. Yilan Arechiga Glucose [Mass/Vol]185 mg/dLCritically cecy74-727Zzo [facility] HospitalComment on above:Performed By: #### BNP, BMP ####[facility] Gmbyriezpg[address] [place], [place] [address]Dr. Yilan ChangPotassium [Moles/Vol]4.4 mmol/LNormal 3.5-5.1The [facility] HospitalComment on above:Performed By: #### BNP, BMP ####[facility] Lqrctihwev[address] [place], [place] [address]Dr. Yilan ChangSodium [Moles/Vol]136 mmol/BNvamdi966-699Aqe [facility] HospitalComment on above:Performed By: #### BNP, BMP ####[facility] [address]xriqnszml[address] [place] [address]DrIndu ArechigaUrea nitrogen [Mass/Vol]27.0 mg/dL Critically high7.0-18.0The [facility] HospitalComment on above:Performed By: #### BNP, BMP ####[facility] [address]plwupc[address] [place] [address]DrIndu Negro ChangUrea nitrogen/Creatinine [Mass ratio]31.4 mg/mgNormalThe [facility] HospitalComment on above:Performed By: #### BNP, BMP ####[facility] Lizxprqjdx[address] [place] [address]Dr. Sruthi LariosC AUTO DIFFon [id number] #0.0 103/ulNormal0.0-0.1The [facility] HospitalComment on above:Performed By: #### CVDTBH #### [facility] [address] [place] [address] Dr. Sruthi ArechigaBasophils/100 WBC (Bld)0.4 %Normal0.2-2.0The [facility] Comment on above:Performed By: #### CVDTBH #### [facility] [address] [place] [address] Dr. Sruthi Shields #0.2 103/ulNormal0.0-0.7The [facility] HospitalComment on above: Performed By: #### CVDTBH #### [facility] [address] [place] [address] Dr. Sruthi Joyosinophils/100 WBC (Bld)2.4 %Normal0.9-7.0The [facility] Comment on above:Performed By: #### CVDTBH #### [facility] [address] [place] [address] Dr. Sruthi Joyrythrocyte distribution width (RBC) [Ratio]13.3 %Wkppod53.0-15.0 The [facility] HospitalComment on above:Performed By: #### CVDTBH #### [facility] [address] [address] [address] Sruthi ArechigaHematocrit (Bld) [Volume fraction]32.0 %Critically low36.0-48.0 The [facility] HospitalComment on above:Performed By: #### CVDTBH #### [facility] [address] [address] [address] Sruthi ArechigaHemoglobin (Bld) [Mass/Vol]10.0 g/dLCritically low12.0-16.0The [facility] HospitalComment on above:Performed By: #### CVDTBH #### [facility] [address] [address] [address] Sruthi Conklin #0.05 10e3/ulCritically high0.00-0.03The [facility] on above:Performed By: #### CVDTBH #### [facility] [address] [address] [address] Sruthi Conklin %0.5 %Normal0.0-0.5The [facility] HospitalComment on above: Performed By: #### CVDTBH #### [facility] [address] [address] [address] Sruthi Serrano #2.4 103/ulNormal1.2-3.8The [facility] HospitalComment on above:Performed By: #### CVDTBH #### [facility] [address] [address] [address] Sruthi Tijerinahocytes/100 WBC (Bld)24.5 %Rnynfm66.5-60.0[facility] HospitalComment on above:Performed By: #### CVDTBH #### [facility] [address] [address] [address] Sruthi ToscanoUAL DIFF REQNONormalThe [facility] HospitalComment on above: Performed By: #### CVDTBH #### [facility] [address] [address] [address] Sruthi Brink (RBC) [Entitic mass]26.5 pgCritically low26.7-34.0The [facility] HospitalComment on above:Performed By: #### CVDTBH #### [facility] [address] [place] [address] Dr. Sruthi Torres (RBC) [Mass/Vol]31.3 g/jCIkpgdg46.9-35.2The [facility] HospitalComment on above:Performed By: #### CVDTBH #### [facility] [address] [place] [address] Dr. Sruthi Torres (RBC) [Entitic vol]84.9 zOBhdols34.0-99.0The [facility] HospitalComment on above:Performed By: #### CVDTBH #### [facility] [address] [place] [address] Dr. Sruthi Valladares #1.1 103/ulCritically high0.3-0.8The [facility] Comment on above:Performed By: #### MARGITBH #### [facility] [address] [place] [address] Dr. Sruthi Alegriaocytes/100 WBC (Bld)11.7 %Normal1.7-12.0[facility] Comment on above:Performed By: #### CVDTBH #### [facility] [address] [place] [address] Dr. Sruthi Carl #5.8 103/ulNormal1.4-6.5The [facility] HospitalComment on above:Performed By: #### CVDTBH #### [facility] [address] [place] [address] Dr. Sruthi Allanophils/100 WBC (Bld)60.5 %Ewnmxn95.0-75.0The [facility] HospitalComment on above:Performed By: #### CVDTBH #### [facility] [address] [place] [address] Dr. Sruthi Jaimelet mean volume (Bld) [Entitic vol]11.8 fLNormal9.5-13.5The [facility] HospitalComment on above:Performed By: #### CVDTBH #### [facility] [address] [address] [address] Sruthi ArechigaPLT198 103/vsRouvbq387-795Foo [facility] HospitalComment on above: Performed By: #### CVDTBH #### [facility] [address] [address] [address] Sruthi ArechigaRBC3.77 106/ulCritically low4.20-5.40The [facility] HospitalComment on above:Performed By: #### CVDTBH #### [facility] [address] [address] [address] Sruthi ArechigaWBC9.7 103/ulNormal4.0-11.0The [facility] HospitalComcorewell health gerber hospital on above: Performed By: #### CVDTBH #### [facility] [address] [place] [address] Dr. Sruthi Tobin URINEon 38-82-8004RWQWTNK URINEIsolate 1 Klebsiella pneumoniae >100,000 cfu/mL of [...] <=16 S F Trimethoprim/Sulfamethoxazole <=20 S FNormalThe [facility] HospitalComment on above:Performed By: #### URCX ####[facility] [address] [address]Dr. Sruthi Alvarenga AND TIBCon 07-06-2022% SATURATION 9.3 %NormalThe [facility] HospitalComcorewell health gerber hospital on above:Performed By: #### FETIBC, B12FOL ####[facility] [address] [place] [address] [address]Dr. Sruthi Alvarenga [Mass/Vol]33.0 ug/dLCritically low50.0-170.0The [facility] HospitalComment on above:Performed By: #### FETIBC, B12FOL ####[facility] [address]hy[address] [address]Dr. Sruthi ArechigaTIBC QEVHEU325.0 ug/dXZlvdgz505.0-450.0The [facility] HospitalComment on above: Performed By: #### FETIBC, B12FOL ####[facility] [address] [address]Dr. Sruthi Gray BLD IMMUNO SCREENon 07-06-2022 OCCULT BLOODNegativeNormalNEGATIVEThe [facility] HospitalComment on above: Performed By: #### OBSCRN #### [facility] [address] [place] [address] Dr. Sruthi ArechigaPOINT OF CARE GLUCOSEon 45-47-7684Yjtboij [Mass/Vol]203 mg/dL Critically tlam01-428LfgCommunity Memorial HospitalComment on above:Performed By: #### CBC #### [facility] [address] [address] [address] Sruthi ArechigaGlucose [Mass/Vol]299 mg/dLCritically hrnb35-038Rno [facility] HospitalComment on above:Performed By: #### CVDTBH #### [facility] [address] [address] [address] Sruthi ArechigaGlucose [Mass/Vol]412 mg/dLCritically crbe60-624UkeCommunity Memorial HospitalComment on above:Performed By: #### CBC #### [facility] [address] [address] [address] Sruthi ArechigaPROF CHEM 8 (BAS METB)on 01-72-8154Zuetq gap [Moles/Vol]11.0 mmol/LNormalThe [facility] HospitalComment on above:Performed By: #### BMP ####[facility] Iaeskwrfey[address] [place], [place] [address]Dr. Sruthi ArechigaCalcium [Mass/Vol]9.0 mg/dLNormal8.5-10.1The [facility] HospitalComment on above:Performed By: #### BMP ####[facility] Zgrqmshrvi[address] [place], [place] [address]Dr.Yilan ChangChloride [Moles/Vol]100 mmol/LNormal 98-107The [facility] HospitalComment on above:Performed By: #### BMP ####[facility] Wfielhoufu[address] [place], [place] [address]Dr.Yilan ChangCO2 [Moles/Vol]28.5 mmol/GFqtppr13.0-32.0The [facility] HospitalComment on above: Performed By: #### BMP ####[facility] Bwwctxyfbd[address] [place], [place] [address]Dr.Yilan ChangCreatinine [Mass/Vol]0.98 mg/dLNormal 0.55-1.02The [facility] HospitalComment on above:Performed By: #### BMP ####[facility] Nfr[address]vqjao[address] [place], [place] [address]Dr. Yilan ChangEGFR-AF SAMMARINESE>60Normal>=60The [facility] HospitalComment on above: Performed By: #### BMP ####[facility] Dxslogcqxm[address] [place], [place] [address]Dr.Yilan ChangEGFR-NON AF UENSPJWI13 mL/min/1.73m2 Critically low>=60The [facility] HospitalComment on above:Performed By: #### BMP ####[facility] Sbszlnjuil[address] [place], [place] [address]Dr. Yilan ChangGlucose [Mass/Vol]139 mg/dLCritically agci35-505Iqr [facility] Comment on above:Performed By: #### BMP ####[facility] [address]eqqyyxukw[address] [place], [place] [address]Dr.Yilan ChangPotassium [Moles/Vol]4.5 mmol/LNormal3.5-5.1The [facility] HospitalComment on above:Performed By: #### BMP ####[facility] Yhvsrcdvdu[address] [place], [place] [address]Dr. Yilan ChangSodium [Moles/Vol]135 mmol/LCritically hnx001-884Vdk [facility] HospitalComment on above:Performed By: #### BMP ####[facility] [address]cymvonf[address] [place] [id number].Sruthi ArechigaUrea nitrogen [Mass/Vol]25.0 mg/dLCritically high7.0-18.0The [facility] HospitalComment on above:Performed By: #### BMP ####[facility] [address] [place] [address]Dr.Sruthi ChangUrea nitrogen/Creatinine [Mass ratio] 25.5 mg/mgNoHolzer Medical Center – JacksonComment on above:Performed By: #### BMP ####[facility] [address]zycrxtfkh[address] [place] [id number]. Sruthi ArechigaVIT B12 AND FOLATEon 67-79-0515Hjmkuittr (Vitamin B12) [Mass/Vol] 653.0 pg/kKBftchb875.0-986.0The [facility] HospitalComment on above:Performed By: #### FETIBC, B12FOL ####[facility] [address]fr[address]jan[address] [place] [address] [address]Dr. Sruthi ArechigaWwhrzYYSCHL39.90 ng/mLNormal8.60-58.90The [facility] Centerment on above:Performed By: #### FETIBC, B12FOL ####[facility] [address]xmuglig[address] [address]Dr. Sruhti ArechigaXR CHEST 2 Von 60-95-3686GE CHEST 2 VEXAM: XR CHEST 2 V [...] Electronically authenticated by: GORDON VALENZUELA Date: 2022-07-06 08:43[facility] AUTO DIFFon [id number] #0.0 103/ulNormal0.0-0.1The [facility]in HospitalComment on above:Performed By: #### CBC ####[facility] [address]vngohynqe[address] [place], [place] [address]Dr.Sruthi ChangBasophils/100 WBC (Bld)0.4 %Normal0.2-2.0The [facility] HospitalComment on above:Performed By: #### CBC ####[facility] Otqvkcpukk[address] [place], [place] [address]Dr.Yilan ChangEO #0.2 103/ulNormal0.0-0.7The [facility] HospitalComment on above:Performed By: #### CBC ####[facility] Uwlauhxzrr[address] [place], [place] [address]Dr.Kamalalan ChangEosinophils/100 WBC (Bld)2.6 %Normal 0.9-7.0The [facility] HospitalComment on above:Performed By: #### CBC ####[facility] Kroaudwlkr[address] [place], [place] [address]Dr.Sruthi Arechiga Erythrocyte distribution width (RBC) [Ratio]13.3 %Ewucmy87.0-15.0The [facility] HospitalComment on above:Performed By: #### CBC ####[facility] Cerqpgmmrb[address] [place], [place] [address]Dr.Sruthi ChangHematocrit (Bld) [Volume fraction]31.3 %Critically low36.0-48.0The [facility] HospitalComment on above:Performed By: #### CBC ####[facility] Mzyyfvnpud[address] [place], [place] [address]Dr.Sruthi ChangHemoglobin (Bld) [Mass/Vol]9.9 g/dL Critically low12.0-16.0The [facility] HospitalComment on above:Performed By: #### CBC ####[facility] Zczbqdrmdv[address] [place], [place] [address]Dr. Sruthi ChangIG #0.07 10e3/ulCritically high0.00-0.03The [facility] HospitalComment on above:Performed By: #### CBC ####[facility] Ydoaumtxle[address] [place], [place] [address]Dr.Yilan ChangIG %0.8 %Critically high0.0-0.5The [facility] HospitalComment on above:Performed By: #### CBC ####[facility] [facility] Cqwicvoj[address] [place], [place] [address]Dr.Kamalasven CaliEDGEWOOD [facility] #2.1 103/ulNormal1.2-3.8The Buffalo HospitalComment on above:Performed By: #### CBC ####[facility] Zwsqslfk[address] [place], [place] [address]Dr. Kamalasven Calihocytes/100 WBC (Bld)22.5 %Seikwi01.5-60.0The [facility] Comment on above:Performed By: #### CBC ####[facility] Ns[address]fl[address] [place], [place] [address]Dr.Sruthi ArechigaMANUAL DIFF REQNONormalThe [facility] HospitalComment on above:Performed By: #### CBC ####[facility] Bltzrhpwsk[address] [place], [place] [address]Dr.Sruthi ArechigaLEWIS COUNTY GENER[facility] (RBC) [Entitic mass]27.0 kvMndtdh54.7-34.0The [facility] HospitalComment on above: Performed By: #### CBC ####[facility] Jsesxjwxfp[address] [place], [place] [address]Dr.Kamalasven ArechigaBROOKLYN HOS[facility]ITAL [facility] (RBC) [Mass/Vol]31.6 g/dLNormal 29.9-35.2Community Memorial HospitalComment on above:Performed By: #### CBC ####[facility] Ayprrhpgsd[address] [place], [place] [address]Dr. Sruthi ArechigaV (RBC) [Entitic vol]85.3 dEGzytmq04.0-99.0The [facility] Comment on above:Performed By: #### CBC ####[facility] Fpwruavrsz[address] [place], [place] [address]DrJaswinder AlegriaO #1.2 103/ulCritically high0.3-0.8The Buffalo HospitalComment on above:Performed By: #### CBC ####[facility] Ivxswtnbwa[address] [place], [place] [address]Dr. Sruthi ChangMonocytes/100 WBC (Bld)12.9 %Critically high1.7-12.0The [facility] HospitalComment on above:Performed By: #### CBC ####[facility] [address] [place] [address]Dr.Sruthi ChangNEUT #5.7 103/ulNormal1.4-6.5The [facility] HospitalComment on above:Performed By: #### CBC ####[facility] Zqrzeouomm[address] [place] [address]Dr. Kamalalan ChangNeutrophils/100 WBC (Bld)60.8 %Dklifd87.0-75.0The [facility] Comment on above:Performed By: #### CBC ####[facility] Dlakvxraxr[address] [place] [address]Dr.Sruthi ChangPlatelet mean volume (Bld) [Entitic vol]11.2 fLNormal9.5-13.5The [facility] HospitalComment on above: Performed By: #### CBC ####[facility] Dmmiwgroiv[address] [place] [address]Dr.Yilan CgsxqSWL337 103/faXwzuyf470-827Xin [facility] HospitalComment on above:Performed By: #### CBC ####[facility] Nqh[address]cwld[address] [place], [place] [address]Dr.Sruthi ChangRBC3.67 106/ul Critically low4.20-5.40The [facility] HospitalComment on above:Performed By: #### CBC ####[facility] Yzwf[address]ozmx[address] [place] [address]Dr. Kamalalan ChangWBC9.3 103/ulNormal4.0-11.0The [facility] HospitalComment on above: Performed By: #### CBC ####[facility] Bctlzyrggf[address] [place], [place] [address]Dr.Sruthi ChangSOUTHE[facility] GLUCOSEon 07-05-2022 Glucose [Mass/Vol]164 mg/dLCritically lxbm57-162Zqk [facility] HospitalComment on above:Performed By: #### CVDTBH #### [facility] [address] [place], [place] [address] Dr. Sruthi ArechigaGlucose [Mass/Vol]303 mg/dLCritically hsza88-297Fal [facility] HospitalComment on above:Performed By: #### POCGLUC #### [facility] [address] [address] [address] Sruthi ArechigaGlucose [Mass/Vol]278 mg/dLCritically wrwf94-992Qkj [facility] HospitalComment on above:Performed By: #### CVDTBH #### [facility] [address] [place] [address] [address] Sruthi ArechigaPROF CHEM 8 (BAS METB)on 28-76-9310Dgvuu gap [Moles/Vol]9.9 mmol/LNormalThe [facility] HospitalComment on above:Performed By: #### BMP ####[facility] Jcelenmbqd[address] [place] [address]Dr. Sruthi ChangCalcium [Mass/Vol]8.7 mg/dLNormal8.5-10.1The [facility] HospitalComment on above:Performed By: #### BMP ####[facility] Wpwpmlerig[address] [place] [address]Dr.Sruthi ChangChloride [Moles/Vol]100 mmol/LNormal 98-107The [facility] HospitalComment on above:Performed By: #### BMP ####[facility] Hdkozostnr[address] [place] [address]DrJaswinder ChangCO2 [Moles/Vol]28.4 mmol/ITtsudf45.0-32.0The [facility] HospitalComment on above: Performed By: #### BMP ####[facility] Dhpybcligp[address] [place] [address]Dr.Sruthi ChangCreatinine [Mass/Vol]0.99 mg/dLNormal 0.55-1.02The [facility] HospitalComment on above:Performed By: #### BMP ####[facility] Ltsfvwiaup[address] [place] [address]Dr. Sruthi ChangEGFR-AF SAMMARINESE>60Normal>=60The [facility] HospitalComment on above: Performed By: #### BMP ####[facility] [address]lsopgbgxw[address] [place] [address]Dr.Sruthi ChangEGFR-NON AF EOYZXENP98 mL/min/1.73m2 Critically low>=60The [facility] HospitalComment on above:Performed By: #### BMP ####[facility] [address]mycefvbke[address] [place] [address]Dr. Sruthi ChangGlucose [Mass/Vol]174 mg/dLCritically jjfx45-248Uae [facility] Comment on above:Performed By: #### BMP ####[facility] Emmcshjtnk[address] [place] [address]Dr.Sruthi ChangPotassium [Moles/Vol]4.3 mmol/LNormal3.5-5.1The [facility] HospitalComment on above:Performed By: #### BMP ####[facility] [address]qogldxmdr[address] [place] [address]Dr. Sruthi ChangSodium [Moles/Vol]134 mmol/LCritically ztb167-565Kjd [facility] HospitalComment on above:Performed By: #### BMP ####[facility] [address]jsofyuszt[address] [place] [address]Dr.Sruthi ChangUrea nitrogen [Mass/Vol]22.0 mg/dLCritically high7.0-18.0The [facility] HospitalComment on above:Performed By: #### BMP ####[facility] [address]xtbxbzp[address] [place] [address]Dr.Sruthi ChangUrea nitrogen/Creatinine [Mass ratio] 22.2 mg/mgNormalThe [facility] HospitalComment on above:Performed By: #### BMP ####[facility] Way[address]cyibp[address] [place] [address]Dr. Sruthi Sarmiento 41-97-0272Micskutisui peptide B (Bld) [Mass/Vol]1822.0 pg/mL Critically high<=900.0The [facility] HospitalComment on above:Performed By: #### CBC #### [facility] [address] [address] [address] Sruthi Fisher AUTO DIFFon [id number] #0.0 103/ulNormal0.0-0.1The [facility] HospitalComment on above:Performed By: #### CBC #### [facility] [address] [place] [address] [address] Sruthi ArechigaBasophils/100 WBC (Bld)0.4 %Normal0.2-2.0[facility] Comment on above:Performed By: #### CBC #### [facility] [address] [place] [address] [address] Sruthi Shields #0.2 103/ulNormal0.0-0.7The [facility] HospitalComment on above: Performed By: #### CBC #### [facility] [address] [place] [address] Dr. Sruthi Joyosinophils/100 WBC (Bld)2.4 %Normal0.9-7.0[facility] Comment on above:Performed By: #### CBC #### [facility] [address] [place] [address] Dr. Sruthi Joyrythrocyte distribution width (RBC) [Ratio]13.5 %Bxqhqx45.0-15.0 The [facility] HospitalComment on above:Performed By: #### CBC #### [facility] [address] [place] [address] Dr. Sruthi ArechigaHematocrit (Bld) [Volume fraction]36.4 %Wpqmer47.0-48.0The [facility] HospitalComment on above:Performed By: #### CBC #### [facility] [address] [place] [address] Dr. Sruthi ArechigaHemoglobin (Bld) [Mass/Vol]11.6 g/dLCritically low12.0-16.0The [facility] HospitalComment on above:Performed By: #### CBC #### [facility] [address] [place] [address] Dr. Sruthi Conklin #0.11 10e3/ulCritically high0.00-0.03The [facility] Comment on above:Performed By: #### CBC #### [facility] [address] [place] [address] [address] Sruthi Conklin %1.2 %Critically high0.0-0.5The [facility] HospitalComment on above:Performed By: #### CBC #### [facility] [address] [place] [address] [address] Sruthi Serrano #1.7 103/ulNormal1.2-3.8The [facility] HospitalComment on above:Performed By: #### CBC #### [facility] [address] [place] [address] [address] Sruthi Calihocytes/100 WBC (Bld)19.0 %Critically low20.5-60.0The [facility] HospitalComment on above:Performed By: #### CBC #### [facility] [address] [place] [address] Dr. Sruthi ToscanoUAL DIFF REQNONormalThe [facility] HospitalComment on above: Performed By: #### CBC #### [facility] [address] [place] [address] [address] Sruthi Torres (RBC) [Entitic mass]27.3 maIceiqc69.7-34.0The [facility] HospitalComment on above:Performed By: #### CBC #### [facility] [address] [place] [address] Dr. Sruthi Torres (RBC) [Mass/Vol]31.9 g/tFBompqo41.9-35.2The [facility] HospitalComment on above:Performed By: #### CBC #### [facility] [address] [place] [address] Dr. Sruthi Torres (RBC) [Entitic vol]85.6 sIGyjrcc30.0-99.0The [facility] HospitalComment on above:Performed By: #### CBC #### [facility] [address] [place] [address] Dr. Sruthi Valladares #1.1 103/ulCritically high0.3-0.8The [facility] Comment on above:Performed By: #### CBC #### [facility] [address] [place] [address] Dr. Sruthi Alegriaocytes/100 WBC (Bld)11.9 %Normal1.7-12.0The [facility] Comment on above:Performed By: #### CBC #### [facility] [address] [place] [address] Dr. Sruthi GomezUT #6.0 103/ulNormal1.4-6.5The [facility] HospitalComment on above:Performed By: #### CBC #### [facility] [address] [place] [address] Dr. Sruthi Gomezutrophils/100 WBC (Bld)65.1 %Mitesw44.0-75.0The [facility] HospitalComment on above:Performed By: #### CBC #### [facility] [address] [place] [address] Dr. Sruthi Jaimelet mean volume (Bld) [Entitic vol]10.7 fLNormal9.5-13.5The [facility] HospitalComment on above:Performed By: #### CBC #### [facility] [address] [place] [address] Dr. Sruthi ArechigaPLT264 103/gyKgpjae525-273Rlk [facility] HospitalComment on above: Performed By: #### CBC #### [facility] [address] [place] [address] Dr. Sruthi ArechigaRBC4.25 106/ulNormal4.20-5.40The [facility] Centerment on above:Performed By: #### CBC #### [facility] [address] [place] [address] Dr. Sruthi ArechigaWBC9.2 103/ulNormal4.0-11.0The [facility] Centerment on above: Performed By: #### CBC #### [facility] [address] [place] [address] Dr. Sruthi ArechigaCovid-19 PCR (CVDTBH)on 11-09-2904CKZI-CoV-2 (COVID-19) RNA KOLE+probe Ql (Unsp spec)Not detectedNormalNOT DETECTEDCommunity [facility] Comment on above:Result Comment: When diagnostic [...] for this test is supported by the Patient Advocate of Health and Human Service's declaration that [...] no longer be used).Performed By: #### CVDTBH ####[facility] [address] [place] [address]Dr. Sruthi Rodriguez URINE PROFILEon 31-81-8052Mfhlaenqv Ql (U)NegativeNormal NEGATIVECommunity Memorial HospitalComment on above:Performed By: #### CVDTBH #### [facility] [address] [place] [address] Dr. Sruthi Varela (U)CLEARNormalCLEARCommunity Memorial HospitalComment on above: Performed By: #### CVDTBH #### [facility] [address] [place] [address] Dr. Sruthi Tran (U)LT. YELLOWNormalYELLOWCommunity Memorial HospitalComment on above:Performed By: #### CVDTBH #### [facility] [address] [place] [address] Dr. Sruthi Hidalgo micrscopic examination will be performed if indicated. NormalThe [facility] HospitalComment on above:Performed By: #### CVDTBH #### [facility] [address] [place] [address] Dr. Sruthi Leyvaose Ql (U)>1000AbnormalNEGATIVECommunity Memorial HospitalComment on above:Performed By: #### CVDTBH #### [facility] [address] [place] [address] [address] Sruthi ArechigaHemoglobin Ql (U)NegativeNormalNEGSalem City Hospital Comment on above:Performed By: #### CVDTBH #### [facility] [address] [address] [address] Sruthi ArechigaKetones Ql (U)NegativeNormalNEGATIVECommunity Memorial HospitalComment on above:Performed By: #### CVDTBH #### [facility] [address] [address] [address] Sruthi ArechigaLEUKOCYTESSMALLAbnormalNEGATIVECommunity Memorial HospitalComment on above:Performed By: #### CVDTBH #### [facility] [address] [place] [address] Dr. Sruthi ArechigaNitrite Ql (U)NegativeNormalNEGATIVECommunity Memorial HospitalComment on above:Performed By: #### CVDTBH #### [facility] [address] [place] [address] Dr. Sruthi ArechigapH (U)6.0 [pH]Normal5-9Community [facility] HospitalComment on above: Performed By: #### CVDTBH #### [facility] [address] [place] [address] Dr. Sruthi ArechigaSPEC GRAVITY<=1.258Iztaymdl1.005-<=1.025[facility] Comment on above:Performed By: #### CVDTBH #### [facility] [address] [place] [address] Dr. Sruthi Whitehead PROTEINNegativeNormalNEGATIVE/ TRACECommunity [facility] Hospital Comment on above:Performed By: #### CVDTBH #### [facility] [address] [place] [address] Dr. Sruthi Adamson MICRO INDINDICATEDNoalThProMedica Defiance Regional HospitalComment on above: Performed By: #### CVDTBH #### [facility] [address] [place] [address] Dr. Yilan ChangUrobilinogen Qn (U)0.2 {Willow'U}/dLNormal0.2 - 1.0The [facility] HospitalComment on above:Performed By: #### CVDTBH #### [facility] [address] [address] [address] Sruthi ArechigaPOINT OF CARE GLUCOSEon 93-08-7129Upvznaj [Mass/Vol]262 mg/dL Critically tikz49-939Ocj [facility] HospitalComment on above:Performed By: #### POCGLUC ####[facility] [address] [place] [address]Dr. Sruthi ArechigaPROF CHEM 8 (BAS METB)on 66-12-7677Sbvbc gap [Moles/Vol]13.0 mmol/LNormalThe [facility] HospitalComment on above:Performed By: #### CBC #### [facility] [address] [address] [address] Sruthi ArechigaCalcium [Mass/Vol]9.3 mg/dLNormal8.5-10.1The [facility] Comment on above:Performed By: #### CBC #### [facility] [address] [address] [address] Sruthi ArechigaChloride [Moles/Vol]99 mmol/YXrpatt47-789Ndh [facility] Comment on above:Performed By: #### CBC #### [facility] [address] [address] [address] Sruthi ArechigaCO2 [Moles/Vol]26.3 mmol/XQuvjds91.0-32.0The [facility] Comment on above:Performed By: #### CBC #### [facility] [address] [address] [address] Sruthi ArechigaCreatinine [Mass/Vol]0.95 mg/dLNormal0.55-1.02The [facility] HospitalComment on above:Performed By: #### CBC #### [facility] [address] [address] [address] Negro ChangEGFR-AF SAMMARINESE>60Normal>=60The [facility] HospitalComment on above:Performed By: #### CBC #### [facility] [address] [address] [address] Sruthi JoyGFR-NON AF DCCHUDMJ28 mL/min/1.06u9Uierxjthuu low>=60The [facility] on above:Performed By: #### CBC #### [facility] [address] [address] [address] Sruthi ArechigaGlucose [Mass/Vol]331 mg/dLCritically wids77-805Hxv [facility] on above:Performed By: #### CBC #### [facility] [address] [address] [address] Sruthi ArechigaPotassium [Moles/Vol]4.3 mmol/LNormal3.5-5.1The [facility] Comment on above:Performed By: #### CBC #### [facility] [address] [address] [address] Sruthi ArechigaSodium [Moles/Vol]134 mmol/LCritically wpe311-774Bjb [facility] on above:Performed By: #### CBC #### [facility] [address] [address] [address] Sruthi ArechigaUrea nitrogen [Mass/Vol]20.0 mg/dLCritically high7.0-18.0The [facility] on above:Performed By: #### CBC #### [facility] [address] [address] [address] Sruthi ArechigaUrea nitrogen/Creatinine [Mass ratio]21.1 mg/mgNormalThe [facility] HospitalComment on above:Performed By: #### CBC #### [facility] [address] [address] [address] Sruthi Tucker, HIGH SENSITIVITYon 35-82-2930YJRDJY339.1 pg/mL Critically high4.0-51.3The [facility] on above:Result Comment: CUT-OFF POINTS HAVE BEEN ESTABLISHED BASED ON THE FOURTH UNIVERSAL DEFINITIONS OF MYOCARDIAL INFARCTION. THE UPPER REFERENCE LIMIT (URL) OF TROPONIN, DEFINED THE 99TH PERCENTILE OF cTnI DISTRIBUTION IN A REFERENCE POPULATION, HAS BEEN CONFIRMED THE DECISION THRESHOLD FOR [place] DIAGNOSIS.Performed By: #### CBC #### [facility] [address] [place] [address] Dr. Sruthi Garrido126.6 pg/mLCritically high4.0-51.3The [facility] Comment on above:Result Comment: CUT-OFF POINTS HAVE BEEN ESTABLISHED BASED ON THE FOURTH UNIVERSAL DEFINITIONS OF MYOCARDIAL INFARCTION. THE UPPER REFERENCE LIMIT (URL) OF TROPONIN, DEFINED THE 99TH PERCENTILE OF cTnI DISTRIBUTION IN A REFERENCE POPULATION, HAS BEEN CONFIRMED THE DECISION THRESHOLD FOR VT DIAGNOSIS.Performed By: #### CVDTBH #### [facility] [address] [place] [address] Dr. Sruthi Antunez 86-32-2369MCFNFUNDWICWVAitqqxbsRWJA SEEN [facility] HospitalComcorewell health ger[facility] on above:Performed By: #### CVDTBH #### [facility] [address] [place] [address] Dr. Sruthi Walls identified Cx Nom (U)INDICATEDRegional Medical CenterComment on above:Performed By: #### CVDTBH #### [facility] [address] [place] [address] Dr. Sruthi Olmos SEENNormalNONE SEENCommunity Memorial HospitalComcorewell health gerber hospital on above:Performed By: #### CVDTBH #### [facility] [address] [place] [address] Dr. Sruthi Brown LM Nom (Urine sed)NONE SEENNormalNONE SEENCommunity Memorial HospitalComcorewell health gerber hospital on above:Performed By: #### CVDTBH #### [facility] [address] [place] [address] Dr. Negro ChangEpithelial cells LM Ql (Urine sed)FEWAbnormalNONE SEEN /RAREThe [facility] HospitalComcorewell health gerber hospital on above:Performed By: #### CVDTBH #### [facility] [address] [place] [address] Dr. Sruthi Jernigan SEENNoatrium healthNONE SEENWyandot Memorial Hospital on above:Performed By: #### CVDTBH #### [facility] [address] [address] [address] Sruthi ArechigaRBCNJEAN SEENAbnormal0-2The [facility] HospitalComment on above: Performed By: #### CVDTBH #### [facility] [address] [address] [address] Sruthi ArechigaGqhzmYLE92-69TcnckduaMDEL SEENThe [facility] HospitalComment on above: Performed By: #### CVDTBH #### [facility] [address] [place] [address] Dr. Sruthi ArechigaXR CHEST 1 Von 07-44-2210GN CHEST 1 VEXAMINATION: XR CHEST 1 V [...] Electronically authenticated by: GERMAIN COY Date: 2022-07-04 11:53[facility] COMPLETE BLOOD COUNTon [id number] distribution width (RBC) [Ratio]13.4 %Ykxkad13.5-15.0The [facility] Comment on above:Order Comment: No: Do not add to previous drawPerformed By: #### [id number] #### [facility] [address] [place] [address], USAHematocrit (Bld) [Volume fraction]33.6 %Low36.0-45.0The [facility] HospitalComment on above:Order Comment: No: Do not add to previous drawPerformed By: #### [id number] #### [facility] [address] [place] [address], USAHemoglobin (Bld) [Mass/Vol]10.6 g/dLLow12.0-15.0The [facility] HospitalComment on above:Order Comment: No: Do not add to previous drawPerformed By: #### [id number] #### [facility] [address] [place] [address], [facility] (RBC) [Entitic mass]26.6 pgLow27.0-33.0The [facility] HospitalComment on above:Order Comment: No: Do not add to previous drawPerformed By: #### [id number] #### [facility] [address] [place] [address], [facility] (RBC) [Mass/Vol]31.5 g/dLLow32.0-35.0The [facility] HospitalComment on above:Order Comment: No: Do not add to previous drawPerformed By: #### [id number] #### [facility] [address] [place] [address], [facility] (RBC) [Entitic vol]84.4 fELgmshg82.0-98.0The [facility] HospitalComment on above:Order Comment: No: Do not add to previous drawPerformed By: #### [id number] #### [facility] [address] [place] [address], USANucleated RBC/100 WBC (Bld) [Ratio]0 %Normal0-0The [facility] Anne HospitalComment on above:Order Comment: No: Do not add to previous drawPerformed By: #### 79558 #### [facility] [address] [place] [address], USAPLAT OBP650 10*3/iMDtsuxq118-402Xvz [facility] HospitalComment on above:Order Comment: No: Do not add to previous draw Performed By: #### [id number] #### [facility] [address] [place] [address], [facility] HOSPITALRBC (Bld) [#/Vol]3.98 10*6/uLNormal3.80-5.00The [facility] HospitalComment on above:Order Comment: No: Do not add to previous drawPerformed By: #### [id number] #### [facility] [address] [place] [address], USAWBC (Bld) [#/Vol]10.25 10*3/uLNormal4.00-10.60The [facility] HospitalComment on above:Order Comment: No: Do not add to previous drawPerformed By: #### [id number] #### [facility] [address] [place] [address], USAPOC GLUCOSE LABon 65-18-5987Chvkmfa [Mass/Vol]204 mg/dLHigh 70-100The [facility] HospitalComment on above:Performed By: #### 59594, 14314, 37214 #### [facility] [address] [place] [address], USAGlucose [Mass/Vol]135 mg/lIAacx61-587Tjj [facility] HospitalComment on above:Performed By: #### 58396 #### [facility] [address] [address], USAUFH HEPARIN ASSAYon [id number] HEPARIN<0.10 Critically low0.30-0.70The [facility] Anne HospitalComment on above: Result Comment: Result checked and called. Accurately read back by Chanda @0737 Rivaroxaban and Apixaban will interfere with the anti Xa assay used to monitor UFH and LMWH.Performed By: #### 90052 #### [facility] [address] [address], USABASIC METABOLIC PANELon [id number] [Mass/Vol]8.8 mg/dLNormal8.6-10.3The [facility] HospitalComment on above:Order Comment: No: Do not add to previous drawPerformed By: #### 41613 #### [facility] [address] [place] [address], USAChloride [Moles/Vol]104 mmol/NYzafbk94-230Ary [facility] HospitalComment on above:Order Comment: No: Do not add to previous drawPerformed By: #### 17207 #### [facility] [address] [place] [address], USACO2 [Moles/Vol]26 mmol/UTultuo23-00Gsp [facility] HospitalComment on above:Order Comment: No: Do not add to previous draw Performed By: #### 04657 #### [facility] [address] [place] [address], USACreatinine [Mass/Vol]0.62 mg/dLNormal0.60-1.20The [facility] HospitalComment on above:Order Comment: No: Do not add to previous drawPerformed By: #### 79668 #### [facility] [address] [place] [address], USAGFR/1.73 sq M.predicted among non-blacks MDRD (S/P/Bld) [Vol rate/Area]mL/min/{1.73_m2}Normal>60The [facility] Comment on above:Order Comment: No: Do not add to previous drawResult Comment: [facility]'s estimated glomerular filtration rate (eGFR) will [...] any one group of individuals.Performed By: #### [id number] #### [facility] [address] [place] [address], USAGlucose [Mass/Vol]212 mg/iNMols15-819Alr [facility] HospitalComment on above:Order Comment: No: Do not add to previous drawPerformed By: #### [id number] #### [facility] [address] [place] [id number], USAPotassium [Moles/Vol]3.8 mmol/LNormal3.5-5.1The [facility] HospitalComment on above:Order Comment: No: Do not add to previous drawPerformed By: #### [id number] #### [facility] [address] [place] [address], USASodium [Moles/Vol]134 mmol/WIui627-133Sqv [facility] HospitalComment on above:Order Comment: No: Do not add to previous drawPerformed By: #### 13628 #### [facility] [address] [place] [address], USAUrea nitrogen [Mass/Vol]15 mg/dLNormal7-25The [facility] HospitalComment on above:Order Comment: No: Do not add to previous drawPerformed By: #### [id number] #### [facility] [address] [address], [facility] HOSPITALCBC W/DIFFon [id number] IMM GRANS0.1 10*3/uLNormal 0.0-0.2The [facility] HospitalComment on above:Order Comment: No: Do not add to previous drawPerformed By: #### [id number] #### [facility] [address] [place] [id number], USAABS NEUTROPHILS6.3 10*3/uLNormal1.6-7.6The [facility] HospitalComment on above:Order Comment: No: Do not add to previous drawPerformed By: #### 63142 #### [facility] [address] [address], USABasophils (Bld) [#/Vol]0.0 10*3/uLNormal0.0-0.2The [facility] HospitalComment on above:Order Comment: No: Do not add to previous drawPerformed By: #### 32868 #### [facility] [address] [place] [address], USABasophils/100 WBC (Bld)0.3 %Normal0.0-1.0The [facility] HospitalComment on above:Order Comment: No: Do not add to previous drawPerformed By: #### 50159 #### [facility] [address] [address], USAEosinophils (Bld) [#/Vol]0.2 10*3/uLNormal0.0-0.5The [facility] HospitalComment on above:Order Comment: No: Do not add to previous drawPerformed By: #### 13137 #### [facility] [address] [place] [address], USAEosinophils/100 WBC (Bld)2.3 %Normal0.0-6.0The [facility] HospitalComment on above:Order Comment: No: Do not add to previous drawPerformed By: #### 31884 #### [facility] [address] [place] [address], USAErythrocyte distribution width (RBC) [Ratio]13.5 %Normal 11.5-15.0The [facility] HospitalComment on above:Order Comment: No: Do not add to previous drawPerformed By: #### 62241 #### [facility] [address] [place] [address], USAHematocrit (Bld) [Volume fraction]31.3 %Low36.0-45.0The [facility] HospitalComment on above:Order Comment: No: Do not add to previous drawPerformed By: #### 35054 #### [facility] [address] [place] [address], USAHemoglobin (Bld) [Mass/Vol]10.2 g/dLLow12.0-15.0The [facility] HospitalComment on above:Order Comment: No: Do not add to previous drawPerformed By: #### 65882 #### [facility] [address] [place] [address], USAIMMATURE GRANS0.8 %Normal0.0-1.0The [facility] HospitalComment on above:Order Comment: No: Do not add to previous draw Performed By: #### 32401 #### [facility] [address] [place] [address], USALymphocytes (Bld) [#/Vol]1.9 10*3/uLNormal1.2-4.0The [facility] HospitalComment on above:Order Comment: No: Do not add to previous drawPerformed By: #### 27452 #### [facility] [address] [place] [address], USALymphocytes/100 WBC (Bld)19.4 %Low20.0-45.0The [facility] HospitalComment on above:Order Comment: No: Do not add to previous drawPerformed By: #### 34407 #### [facility] [address] [address], [facility] ([facility]) [Entitic mass]27.5 lbYiplyy17.0-33.0The [facility] HospitalComment on above:Order Comment: No: Do not add to previous drawPerformed By: #### 04448 #### [facility] [address] [address], [facility]HC (RBC) [Mass/Vol]32.6 g/oIJiczeu14.0-35.0The [facility] HospitalComment on above:Order Comment: No: Do not add to previous drawPerformed By: #### 27634 #### [facility] [address] [place] [address], USAMCV (RBC) [Entitic vol]84.4 kBAjmnjx77.0-98.0The [facility] HospitalComment on above:Order Comment: No: Do not add to previous drawPerformed By: #### 02358 #### [facility] [address] [place] [address], USAMonocytes (Bld) [#/Vol]1.3 10*3/uLHigh0.1-1.0The [facility] HospitalComment on above:Order Comment: No: Do not add to previous drawPerformed By: #### 60143 #### [facility] [address] [place] [address], CKXCMIHD53.1 %High5.0-12.0The [facility] HospitalComment on above:Order Comment: No: Do not add to previous drawPerformed By: #### 66708 #### [facility] [address] [place] [address], USANeutrophils/100 WBC (Bld)64.1 %Besemm92.0-72.0The [facility] HospitalComment on above:Order Comment: No: Do not add to previous drawPerformed By: #### 50036 #### [facility] [address] [place] [address], USANucleated RBC/100 WBC (Bld) [Ratio]0 %Normal0-0The [facility] HospitalComment on above:Order Comment: No: Do not add to previous drawPerformed By: #### 70692 #### [facility] [address] [place] [address], USAPLAT DYZ039 10*3/iWRselpc411-799Noi [facility] HospitalComment on above:Order Comment: No: Do not add to previous draw Performed By: #### 97516 #### [facility] [address] [place] [address], USARBC (Bld) [#/Vol]3.71 10*6/uLLow3.80-5.00The [facility] HospitalComment on above:Order Comment: No: Do not add to previous drawPerformed By: #### 70804 #### [facility] [address] [place] [address], USAWBC (Bld) [#/Vol]9.85 10*3/uLNormal4.00-10.60The [facility] HospitalComment on above:Order Comment: No: Do not add to previous drawPerformed By: #### 30791 #### [facility] [address] [place] [place] [address], USACTA ABDOMEN AND PELVISon [id number] ABDOMEN AND PELVIS [facility] Department of Radiology [address] [place] [phone] Patient Name: DIANN PATEL : 1955 Sex: F Age: Race: White Pt. Location: [id number] Patient Status: D Ordered Date: 07/02/2022 8:20:00 [...] achievable Electronically signed: Robinson Zhu. Transcribed by: [email or web address], User Resident: Electronically Signed by: ROBINSON ZHU @ 07/12/2022 01:12 [facility] CenterComment on above:Order Comment: No: Do not add to previous draw No collection time noted on specimen or requisition. The collection time recorded is the time of receipt in the lab.CTA CHESTon [id number] CHEST [facility] Department of Radiology [address] [place] [phone] Patient Name: DIANN PATEL : 1955 Sex: F Age: Race: White Pt. Location: [id number] Patient Status: D Ordered Date: 07/02/2022 8:20:00 [...] 3 cusped view, anterior view and no OIL BURNER JOURNEYMAN-CAU view are obtained in 3-D volume rendered [...] calcification. Electronically signed: Robinson Zhu. Transcribed by: [email or web address], User Resident: Electronically Signed by: ROBINSON ZHU @ 07/12/2022 01:06 [facility] CenterComment on above:Order Comment: No: Do not add to previous draw No collection time noted on specimen or requisition. The collection time recorded is the time of receipt in the lab.Cardiovascular Lab Reporton [id number] Lab ReportUnAvita Health System Patient Name[facility] Josep MR #: [id number] Department of Physician: Alex Kelly M.D. Division of Service Date: 07/01/2022 Cardiology Birthdate: 1955 Adult Cardiovascular Room #: 4AB [id number] [place] [address] Cardiovascular Laboratory Report CLINICAL PRESENTATION: The patient [...] ultrasound guidance and micropuncture access technique, a 6-Honduran sheath was placed in right common femoral [...] exchanges were made over the J-tip guidewire, 6-Honduran JL4 was used to engage the left main coronary artery. A 6-Honduran JR4 was used to engage the right coronary artery. A 6-Honduran JR4 was used to engage the radial bypass graft to the D1 and the SVG to the OM2. The 6-Honduran JR4 was also used to engage the [...] Betts M.D. Date Trans: 07/02/2022 10:08 A/abdiaziz DN_JN:[id number] cc: Champ Bell M.D. 3 [facility] [address]SeicdlXeiKettering Health HamiltonMAGNESIUM BLOODon [id number] [Mass/Vol]1.9 mg/dLNormal1.9-2.7The [facility] HospitalComment on above:Order Comment: No: Do not add to previous draw Performed By: #### 73544 #### [facility] [address] [place] [address], USAPOC GLUCOSE LABon [id number] [Mass/Vol]268 mg/dLHigh 70-100The [facility] HospitalComment on above:Performed By: #### [id number] #### [facility] [address] [place] [address], USAGlucose [Mass/Vol]255 mg/fIOaoi33-882Bdo [facility] HospitalComment on above:Performed By: #### 77999 #### [facility] [address] [place] [address], USAGlucose [Mass/Vol]173 mg/bJIvgh53-553Csc [facility] HospitalComment on above:Performed By: #### [id number] #### [facility] [address] [place] [address], USAGlucose [Mass/Vol]193 mg/aKJpqs31-547Bxg [facility] HospitalComment on above:Performed By: #### 50535, 23499, 35104 #### [facility] [address] [place] [address], USAGlucose [Mass/Vol]185 mg/sYOmxb35-294Jdp [facility] HospitalComment on above:Performed By: #### 80608, 47682, 32552 #### [facility] [address] [place] [address], USAUFH HEPARIN ASSAYon [id number] HEPARIN<0.10 Critically low0.30-0.70The [facility] HospitalComment on above: Result Comment: RESULTS CHECKED AND CALLED. ACCURATELY READ BACK BY Jessa Schaefer RN at 2200 PMW 07-02-22. Rivaroxaban and Apixaban will interfere with the anti Xa assay used to monitor UFH and LMWH.Performed By: #### 55025 #### [facility] [address] [place] [address], USABASIC METABOLIC PANELon 10-19-1216Nzbtwun [Mass/Vol]8.5 mg/dLLow8.6-10.3The [facility] HospitalComment on above:Order Comment: No: Do not add to previous drawPerformed By: #### 82279, 62309 #### [facility] [address] [place] [address], USAChloride [Moles/Vol]105 mmol/FEuixcw38-678Nak [facility] HospitalComment on above:Order Comment: No: Do not add to previous drawPerformed By: #### 92486, 62360 #### [facility] [address] [place] [address], USACO2 [Moles/Vol]22 mmol/UPyamxv99-13Lkk [facility] HospitalComment on above:Order Comment: No: Do not add to previous draw Performed By: #### 61326, 50246 #### [facility] [address] [place] [address], USACreatinine [Mass/Vol]0.57 mg/dLLow0.60-1.20The [facility] HospitalComment on above:Order Comment: No: Do not add to previous drawPerformed By: #### 63182, 18807 #### [facility] [address] [place] [address], USAGFR/1.73 sq M.predicted among non-blacks MDRD (S/P/Bld) [Vol rate/Area]mL/min/{1.73_m2}Normal>60The [facility] Comment on above:Order Comment: No: Do not add to previous drawResult Comment: [facility]'s estimated glomerular filtration rate (eGFR) will [...] any one group of individuals.Performed By: #### 44374, 70560 #### [facility] [address] [place] [address], USAGlucose [Mass/Vol]164 mg/lFEshr76-192Maw [facility] HospitalComment on above:Order Comment: No: Do not add to previous drawPerformed By: #### 19140, 56047 #### [facility] [address] [place] [address], USAPotassium [Moles/Vol]3.8 mmol/LNormal3.5-5.1The [facility] HospitalComment on above:Order Comment: No: Do not add to previous drawPerformed By: #### 39283, 92503 #### [facility] [address] [address], USASodium [Moles/Vol]137 mmol/SBckuff762-266Rjb [facility] HospitalComment on above:Order Comment: No: Do not add to previous drawPerformed By: #### 57631, 79700 #### [facility] [address] [place] [address], USAUrea nitrogen [Mass/Vol]18 mg/dLNormal7-25The [facility] HospitalComment on above:Order Comment: No: Do not add to previous drawPerformed By: #### 03848, 29873 #### [facility] [address] [place] [address], [facility]OSPITALCBC W/DIFFon [id number] IMM GRANS0.1 10*3/uLNormal 0.0-0.2The [facility] HospitalComment on above:Order Comment: No: Do not add to previous drawPerformed By: #### 29211 #### [facility] [address] [place] [address], USAABS NEUTROPHILS5.1 10*3/uLNormal1.6-7.6The [facility] HospitalComment on above:Order Comment: No: Do not add to previous drawPerformed By: #### 17356 #### [facility] [address] [place] [address], USABasophils (Bld) [#/Vol]0.1 10*3/uLNormal0.0-0.2The [facility] HospitalComment on above:Order Comment: No: Do not add to previous drawPerformed By: #### 90972 #### [facility] [address] [place] [address], USABasophils/100 WBC (Bld)0.6 %Normal0.0-1.0The [facility] HospitalComment on above:Order Comment: No: Do not add to previous drawPerformed By: #### 40628 #### [facility] [address] [address], USAEosinophils (Bld) [#/Vol]0.3 10*3/uLNormal0.0-0.5The [facility] HospitalComment on above:Order Comment: No: Do not add to previous drawPerformed By: #### 96485 #### [facility] [address] [address], USAEosinophils/100 WBC (Bld)2.8 %Normal0.0-6.0The [facility] HospitalComment on above:Order Comment: No: Do not add to previous drawPerformed By: #### 76438 #### [facility] [address] [place] [address], USAErythrocyte distribution width (RBC) [Ratio]13.3 %Normal 11.5-15.0The [facility] HospitalComment on above:Order Comment: No: Do not add to previous drawPerformed By: #### 14298 #### [facility] [address] [place] [address], USAHematocrit (Bld) [Volume fraction]32.6 %Low36.0-45.0The [facility] HospitalComment on above:Order Comment: No: Do not add to previous drawPerformed By: #### 51387 #### [facility] [address] [place] [address], USAHemoglobin (Bld) [Mass/Vol]10.6 g/dLLow12.0-15.0The [facility] HospitalComment on above:Order Comment: No: Do not add to previous drawPerformed By: #### 78028 #### [facility] [address] [place] [address], USAIMMATURE GRANS0.7 %Normal0.0-1.0The [facility] HospitalComment on above:Order Comment: No: Do not add to previous draw Performed By: #### 74244 #### [facility] [address] [place] [address], USALymphocytes (Bld) [#/Vol]2.4 10*3/uLNormal1.2-4.0The [facility] HospitalComment on above:Order Comment: No: Do not add to previous drawPerformed By: #### 74420 #### [facility] [address] [place] [address], USALymphocytes/100 WBC (Bld)26.6 %Pmotgi94.0-45.0The [facility] HospitalComment on above:Order Comment: No: Do not add to previous drawPerformed By: #### 75213 #### [facility] [address] [place] [address], [facility] (RBC) [Entitic mass]27.0 hyQjmdiq12.0-33.0The [facility] HospitalComment on above:Order Comment: No: Do not add to previous drawPerformed By: #### 13912 #### [facility] [address] [place] [address], [facility]OSPITALMCHC (RBC) [Mass/Vol]32.5 g/jBNpyiio01.0-35.0The [facility] HospitalComment on above:Order Comment: No: Do not add to previous drawPerformed By: #### 82573 #### [facility] [address] [place] [address], [facility] HOSPITALMCV (RBC) [Entitic vol]83.0 fDIvniqb63.0-98.0The [facility] HospitalComment on above:Order Comment: No: Do not add to previous drawPerformed By: #### 27151 #### [facility] [address] [place] [address], USAMonocytes (Bld) [#/Vol]1.2 10*3/uLHigh0.1-1.0The [facility] HospitalComment on above:Order Comment: No: Do not add to previous drawPerformed By: #### 29773 #### [facility] [address] [place] [address], WUBNDIOD72.0 %High5.0-12.0The [facility] HospitalComment on above:Order Comment: No: Do not add to previous drawPerformed By: #### 36762 #### [facility] [address] [place] [address], USANeutrophils/100 WBC (Bld)56.3 %Rlpspq55.0-72.0The [facility] HospitalComment on above:Order Comment: No: Do not add to previous drawPerformed By: #### 28229 #### [facility] [address] [place] [address], USANucleated RBC/100 WBC (Bld) [Ratio]0 %Normal0-0The [facility] HospitalComment on above:Order Comment: No: Do not add to previous drawPerformed By: #### 16844 #### [facility] [address] [place] [address], USAPLAT ONM503 10*3/hGZkdmum055-673Vwy [facility] HospitalComment on above:Order Comment: No: Do not add to previous draw Performed By: #### 38928 #### [facility] [address] [place] [address], USARBC (Bld) [#/Vol]3.93 10*6/uLNormal3.80-5.00The [facility] HospitalComment on above:Order Comment: No: Do not add to previous drawPerformed By: #### 22230 #### [facility] [address] [place] [address], USAWBC (Bld) [#/Vol]9.05 10*3/uLNormal4.00-10.60The [facility] HospitalComment on above:Order Comment: No: Do not add to previous drawPerformed By: #### 66438 #### [facility] [address] [place] [address], USAMAGNESIUM BLOODon 40-59-9630Guovctybw [Mass/Vol]1.7 mg/dL Low1.9-2.7The [facility] HospitalComment on above:Order Comment: No: Do not add to previous drawPerformed By: #### 61445, 98762 #### [facility] [address] [place] [address], USAPOC GLUCOSE LABon 83-67-3839Yoishco [Mass/Vol]253 mg/dLHigh 70-100The [facility] HospitalComment on above:Performed By: #### 28225 #### [facility] [address] [place] [address], USAGlucose [Mass/Vol]160 mg/fKEjzv97-083Bag [facility] HospitalComment on above:Performed By: #### 86378 #### [facility] [address] [place] [address], USAGlucose [Mass/Vol]174 mg/kGZgts28-909Qza [facility] HospitalComment on above:Performed By: #### 56120 #### [facility] [address] [place] [address], USAGlucose [Mass/Vol]185 mg/wWLyhq74-471Dbp [facility] HospitalComment on above:Performed By: #### 77010 #### [facility] [address] [place] [address], USAGlucose [Mass/Vol]176 mg/lWUxie90-576Iav [facility] HospitalComment on above:Performed By: #### 21662 #### [facility] [address] [place] [address], USAUFH HEPARIN ASSAYon [id number] HEPARIN0.88 IU/mLHigh0.30-0.70The [facility] Anne HospitalComment on above:Result Comment: Rivaroxaban and Apixaban will interfere with the anti Xa assay used to monitor UFH and LMWH.Performed By: #### [id number] #### [facility] [address] [place] [address], USABASIC METABOLIC PANELon [id number] [Mass/Vol]8.5 mg/dLLow8.6-10.3The [facility] Anne HospitalComment on above:Order Comment: No: Do not add to previous drawPerformed By: #### [id number] #### [facility] [address] [place] [address], USAChloride [Moles/Vol]103 mmol/KXymkdo25-064Qyc [facility] Anne HospitalComment on above:Order Comment: No: Do not add to previous drawPerformed By: #### [id number], [id number], [id number] #### [facility] [address] [place] [address], USACO2 [Moles/Vol]25 mmol/CUwiwcs75-98Jrr [facility] HospitalComment on above:Order Comment: No: Do not add to previous draw Performed By: #### 21053, 54569, 19072 #### [facility] [address] [place] [address], USACreatinine [Mass/Vol]0.50 mg/dLLow0.60-1.20The [facility] Anne HospitalComment on above:Order Comment: No: Do not add to previous drawPerformed By: #### 69746, 22445, 02605 #### [facility] [address] [address], USAGFR/1.73 sq M.predicted among non-blacks MDRD (S/P/Bld) [Vol rate/Area]mL/min/{1.73_m2}Normal>60The [facility] Comment on above:Order Comment: No: Do not add to previous drawResult Comment: [facility]'s estimated glomerular filtration rate (eGFR) will [...] any one group of individuals.Performed By: #### 54180, 35791, 97567 #### [facility] [address] [address], USAGlucose [Mass/Vol]166 mg/tAVwuv89-197Mpa [facility] HospitalComment on above:Order Comment: No: Do not add to previous drawPerformed By: #### 92645, 40003, 07809 #### [facility] [address] [place] [address], USAPotassium [Moles/Vol]3.3 mmol/LLow3.5-5.1The [facility] HospitalComment on above:Order Comment: No: Do not add to previous drawPerformed By: #### 41312, 77153, 89631 #### [facility] [address] [place] [address], USASodium [Moles/Vol]138 mmol/OSzzfnq620-165Yuf [facility] HospitalComment on above:Order Comment: No: Do not add to previous drawPerformed By: #### 72687, 42566, 46193 #### [facility] [address] [facility] [place] [place] [address], USAUrea nitrogen [Mass/Vol]17 mg/dLNormal7-25The [facility] HospitalComment on above:Order Comment: No: Do not add to previous drawPerformed By: #### 71101, 36774, 15125 #### [facility] [address] [place] [address], USACBC W/DIFFon [id number] IMM GRANS0.1 10*3/uLNormal 0.0-0.2The [facility] HospitalComment on above:Order Comment: No: Do not add to previous draw No collection time noted on specimen or requisition. The collection time recorded is the time of receipt in the lab.Performed By: #### [id number] #### [facility] [address] [place] [address], USAABS NEUTROPHILS4.4 10*3/uLNormal1.6-7.6The [facility] HospitalComment on above:Order Comment: No: Do not add to previous draw No collection time noted on specimen or requisition. The collection time recorded is the time of receipt in the lab.Performed By: #### [id number] #### [facility] [address] [place] [address], [facility]OSPITALBasophils (Bld) [#/Vol]0.1 10*3/uLNormal0.0-0.2The [facility] HospitalComment on above:Order Comment: No: Do not add to previous draw No collection time noted on specimen or requisition. The collection time recorded is the time of receipt in the lab.Performed By: #### [id number] #### [facility] [address] [place] [address], [facility] HOSPITALBasophils/100 WBC (Bld)0.6 %Normal0.0-1.0The [facility] HospitalComment on above:Order Comment: No: Do not add to previous draw No collection time noted on specimen or requisition. The collection time recorded is the time of receipt in the lab.Performed By: #### [id number] #### [facility] [address] [place] [address], [facility] HOSPITALEosinophils (Bld) [#/Vol]0.3 10*3/uLNormal0.0-0.5The [facility] HospitalComment on above:Order Comment: No: Do not add to previous draw No collection time noted on specimen or requisition. The collection time recorded is the time of receipt in the lab.Performed By: #### 34935 #### [facility] [address] [place] [address], USAEosinophils/100 WBC (Bld)3.3 %Normal0.0-6.0The [facility] HospitalComment on above:Order Comment: No: Do not add to previous draw No collection time noted on specimen or requisition. The collection time recorded is the time of receipt in the lab.Performed By: #### 98844 #### [facility] [address] [place] [address], USAErythrocyte distribution width (RBC) [Ratio]13.2 %Normal 11.5-15.0The [facility] HospitalComment on above:Order Comment: No: Do not add to previous draw No collection time noted on specimen or requisition. The collection time recorded is the time of receipt in the lab.Performed By: #### 38869 #### [facility] [address] [place] [address], USAHematocrit (Bld) [Volume fraction]35.3 %Low36.0-45.0The [facility] HospitalComment on above:Order Comment: No: Do not add to previous draw No collection time noted on specimen or requisition. The collection time recorded is the time of receipt in the lab.Performed By: #### 31856 #### [facility] [address] [place] [address], USAHemoglobin (Bld) [Mass/Vol]11.2 g/dLLow12.0-15.0The [facility] HospitalComment on above:Order Comment: No: Do not add to previous draw No collection time noted on specimen or requisition. The collection time recorded is the time of receipt in the lab.Performed By: #### [id number] #### [facility] [address] [place] [address], USAIMMATURE GRANS0.7 %Normal0.0-1.0The [facility] HospitalComment on above:Order Comment: No: Do not add to previous draw No collection time noted on specimen or requisition. The collection time recorded is the time of receipt in the lab.Performed By: #### [id number] #### [facility] [address] [place] [address], USALymphocytes (Bld) [#/Vol]2.3 10*3/uLNormal1.2-4.0The [facility] HospitalComment on above:Order Comment: No: Do not add to previous draw No collection time noted on specimen or requisition. The collection time recorded is the time of receipt in the lab.Performed By: #### 06644 #### [facility] [address] [place] [address], USALymphocytes/100 WBC (Bld)28.1 %Pwycmp23.0-45.0The [facility] HospitalComment on above:Order Comment: No: Do not add to previous draw No collection time noted on specimen or requisition. The collection time recorded is the time of receipt in the lab.Performed By: #### [id number] #### [facility] [address] [place] [address], USAMCH (RBC) [Entitic mass]26.3 pgLow27.0-33.0The [facility] HospitalComment on above:Order Comment: No: Do not add to previous draw No collection time noted on specimen or requisition. The collection time recorded is the time of receipt in the lab.Performed By: #### [id number] #### [facility] [address] [facility] [place] [address], [facility] HOSPITALMCHC (RBC) [Mass/Vol]31.7 g/dLLow32.0-35.0The [facility] HospitalComment on above:Order Comment: No: Do not add to previous draw No collection time noted on specimen or requisition. The collection time recorded is the time of receipt in the lab.Performed By: #### 61763 #### [facility] [address] [place] [address], [facility] HOSPITALMCV (RBC) [Entitic vol]82.9 kVYllluv49.0-98.0The [facility] HospitalComment on above:Order Comment: No: Do not add to previous draw No collection time noted on specimen or requisition. The collection time recorded is the time of receipt in the lab.Performed By: #### 86171 #### [facility] [address] [place] [address], USAMonocytes (Bld) [#/Vol]1.1 10*3/uLHigh0.1-1.0The [facility] HospitalComment on above:Order Comment: No: Do not add to previous draw No collection time noted on specimen or requisition. The collection time recorded is the time of receipt in the lab.Performed By: #### 89261 #### [facility] [address] [place] [address], JEJUJFCC17.3 %High5.0-12.0The [facility] HospitalComment on above:Order Comment: No: Do not add to previous draw No collection time noted on specimen or requisition. The collection time recorded is the time of receipt in the lab.Performed By: #### 55323 #### [facility] [address] [place] [address], USANeutrophils/100 WBC (Bld)54.0 %Zgidqe94.0-72.0The [facility] HospitalComment on above:Order Comment: No: Do not add to previous draw No collection time noted on specimen or requisition. The collection time recorded is the time of receipt in the lab.Performed By: #### 26493 #### [facility] [address] [place] [address], USANucleated RBC/100 WBC (Bld) [Ratio]0 %Normal0-0The [facility] HospitalComment on above:Order Comment: No: Do not add to previous draw No collection time noted on specimen or requisition. The collection time recorded is the time of receipt in the lab.Performed By: #### 73901 #### [facility] [address] [place] [address], USAPLAT UXT230 10*3/cPKjpezy127-871Zns [facility] HospitalComment on above:Order Comment: No: Do not add to previous draw No collection time noted on specimen or requisition. The collection time recorded is the time of receipt in the lab.Performed By: #### [id number] #### [facility] [address] [place] [address], USARBC (Bld) [#/Vol]4.26 10*6/uLNormal3.80-5.00The [facility] HospitalComment on above:Order Comment: No: Do not add to previous draw No collection time noted on specimen or requisition. The collection time recorded is the time of receipt in the lab.Performed By: #### [id number] #### [facility] [address] [place] [address], [facility] HOSPITALWBC (Bld) [#/Vol]8.18 10*3/uLNormal4.00-10.60The [facility] HospitalComment on above:Order Comment: No: Do not add to previous draw No collection time noted on specimen or requisition. The collection time recorded is the time of receipt in the lab.Performed By: #### [id number] #### [facility] [address] [place] [address], USAMAGNESIUM BLOODon [id number] [Mass/Vol]1.8 mg/dL Low1.9-2.7The [facility] HospitalComment on above:Order Comment: No: Do not add to previous drawPerformed By: #### 62689, 33173, 19960 #### [facility] [address] [place] [address], USAPOC GLUCOSE LABon [id number] [Mass/Vol]266 mg/dLHigh 70-100The [facility] HospitalComment on above:Performed By: #### 37374 #### [facility] [address] [address], USAGlucose [Mass/Vol]346 mg/wAZafl94-460Arq [facility] HospitalComment on above:Performed By: #### 55296, 86340, 88889 #### [facility] [address] [address], USAGlucose [Mass/Vol]206 mg/iKHmwn19-630Xtd [facility] HospitalComment on above:Performed By: #### 57070, 07091, 75658 #### [facility] [address] [place] [address], USATROPONIN-Ion [id number] I.cardiac [Mass/Vol]1.03 ng/mLCritically high0.00-0.04The [facility] HospitalComment on above:Result Comment: M-PREVIOUS CRITICAL RESULT REFERENCE RANGES: 0.00 - 0.04 ng/ml NORMAL 0.05 - 0.50 ng/ml INDETERMINATE > 0.50 ng/ml CONSISTENT WITH AN M.I.Performed By: #### 71521, 79801, 34688 #### [facility] [address] [place] [address], USAUFH HEPARIN ASSAYon [id number] HEPARIN0.70 IU/mLNormal0.30-0.70The [facility] HospitalComment on above: Result Comment: Rivaroxaban and Apixaban will interfere with the anti Xa assay used to monitor UFH and LMWH.Performed By: #### [id number] #### [facility] [address] [place] [address], USAUNFRACTIONATED HEPARIN0.61 IU/mLNormal0.30-0.70The [facility] HospitalComment on above:Result Comment: Rivaroxaban and Apixaban will interfere with the anti Xa assay used to monitor UFH and LMWH.Performed By: #### 77187 #### [facility] [address] [place] [address], USAUNFRACTIONATED HEPARIN0.85 IU/mLHigh0.30-0.70The [facility] HospitalComment on above:Result Comment: Rivaroxaban and Apixaban will interfere with the anti Xa assay used to monitor UFH and LMWH.Performed By: #### 68962 #### [facility] [address] [place] [id number], [facility] HOSPITALCBC COMPLETE BLOOD COUNTon [id number] distribution width (RBC) [Ratio]13.4 %Wqxkvy43.5-15.0The [facility] HospitalComment on above:Order Comment: No: Do not add to previous draw Performed By: #### 78982 #### [facility] [address] [place] [address], USAHematocrit (Bld) [Volume fraction]34.3 %Low36.0-45.0The [facility] HospitalComment on above:Order Comment: No: Do not add to previous drawPerformed By: #### 85915 #### [facility] [address] [place] [address], USAHemoglobin (Bld) [Mass/Vol]11.3 g/dLLow12.0-15.0The [facility] HospitalComment on above:Order Comment: No: Do not add to previous drawPerformed By: #### 36241 #### [facility] [address] [place] [address], [facility] (RBC) [Entitic mass]27.2 xuIlwxoo39.0-33.0The [facility] HospitalComment on above:Order Comment: No: Do not add to previous drawPerformed By: #### 99627 #### [facility] [address] [place] [id number], [facility] CITYHC (RBC) [Mass/Vol]32.9 g/oOGniebd16.0-35.0The [facility] HospitalComment on above:Order Comment: No: Do not add to previous drawPerformed By: #### 47243 #### [facility] [address] [address], [facility] CITYV (RBC) [Entitic vol]82.7 jVZqcrfp49.0-98.0The [facility] HospitalComment on above:Order Comment: No: Do not add to previous drawPerformed By: #### 22718 #### [facility] [address] [place] [address], [facility] HOSPITALNucleated RBC/100 WBC (Bld) [Ratio]0 %Normal0-0The [facility] HospitalComment on above:Order Comment: No: Do not add to previous drawPerformed By: #### 97509 #### [facility] [address] [place] [address], USAPLAT CSX232 10*3/bTGxxsqs865-017Yyg [facility] HospitalComment on above:Order Comment: No: Do not add to previous draw Performed By: #### 43872 #### [facility] [address] [place] [address], [facility] HOSPITALRBC (Bld) [#/Vol]4.15 10*6/uLNormal3.80-5.00The [facility] HospitalComment on above:Order Comment: No: Do not add to previous drawPerformed By: #### 18639 #### [facility] [address] [facility] [place] [id number], USAWBC (Bld) [#/Vol]7.28 10*3/uLNormal4.00-10.60The [facility] HospitalComment on above:Order Comment: No: Do not add to previous drawPerformed By: #### 55716 #### [facility] [address] [place] [address], USAErythrocyte distribution width (RBC) [Ratio]13.3 %Normal 11.5-15.0The [facility] HospitalComment on above:Order Comment: No: Do not add to previous draw No collection time noted on specimen or requisition. The collection time recorded is the time of receipt in the lab.Performed By: #### 94378 #### [facility] [address] [place] [address], USAHematocrit (Bld) [Volume fraction]33.4 %Low36.0-45.0The [facility] HospitalComment on above:Order Comment: No: Do not add to previous draw No collection time noted on specimen or requisition. The collection time recorded is the time of receipt in the lab.Performed By: #### 63436 #### [facility] [address] [place] [address], USAHemoglobin (Bld) [Mass/Vol]10.8 g/dLLow12.0-15.0The [facility] HospitalComment on above:Order Comment: No: Do not add to previous draw No collection time noted on specimen or requisition. The collection time recorded is the time of receipt in the lab.Performed By: #### [id number] #### [facility] [address] [facility] [facility] [place] [id number], USAMCH (RBC) [Entitic mass]26.8 pgLow27.0-33.0The [facility] HospitalComment on above:Order Comment: No: Do not add to previous draw No collection time noted on specimen or requisition. The collection time recorded is the time of receipt in the lab.Performed By: #### 94735 #### [facility] [address] [place] [address], [facility] HOSPITALMCHC (RBC) [Mass/Vol]32.3 g/kHOkkkwn74.0-35.0The [facility] HospitalComment on above:Order Comment: No: Do not add to previous draw No collection time noted on specimen or requisition. The collection time recorded is the time of receipt in the lab.Performed By: #### 79533 #### [facility] [address] [place] [address], [facility] HOSPITALMCV (RBC) [Entitic vol]82.9 qQNprwkq78.0-98.0The [facility] HospitalComment on above:Order Comment: No: Do not add to previous draw No collection time noted on specimen or requisition. The collection time recorded is the time of receipt in the lab.Performed By: #### 96769 #### [facility] [address] [place] [address], USANucleated RBC/100 WBC (Bld) [Ratio]0 %Normal0-0The [facility] HospitalComment on above:Order Comment: No: Do not add to previous draw No collection time noted on specimen or requisition. The collection time recorded is the time of receipt in the lab.Performed By: #### 49259 #### [facility] [address] [place] [address], USAPLAT IZS098 10*3/fHNwhgyt617-389Rss [facility] HospitalComment on above:Order Comment: No: Do not add to previous draw No collection time noted on specimen or requisition. The collection time recorded is the time of receipt in the lab.Performed By: #### 22137 #### [facility] [address] [place] [address], [facility] HOSPITALRBC (Bld) [#/Vol]4.03 10*6/uLNormal3.80-5.00The [facility] HospitalComment on above:Order Comment: No: Do not add to previous draw No collection time noted on specimen or requisition. The collection time recorded is the time of receipt in the lab.Performed By: #### 51862 #### [facility] [address] [address], USAWBC (Bld) [#/Vol]7.85 10*3/uLNormal4.00-10.60The [facility] HospitalComment on above:Order Comment: No: Do not add to previous draw No collection time noted on specimen or requisition. The collection time recorded is the time of receipt in the lab.Performed By: #### [id number] #### [facility] [address] [place] [address], USACBC W/DIFFon [id number] IMM GRANS0.0 10*3/uLNormal 0.0-0.2The [facility] HospitalComment on above:Order Comment: No collection time noted on specimen or requisition. The collection timerecorded is the time of receipt in the lab.Performed By: #### 86054 #### [facility] [address] [place] [address], USAABS NEUTROPHILS5.2 10*3/uLNormal1.6-7.6The [facility] HospitalComment on above:Order Comment: No collection time noted on specimen or requisition. The collection timerecorded is the time of receipt in the lab.Performed By: #### 64713 #### [facility] [address] [place] [address], USABasophils (Bld) [#/Vol]0.0 10*3/uLNormal0.0-0.2The [facility] HospitalComment on above:Order Comment: No collection time noted on specimen or requisition. The collection timerecorded is the time of receipt in the lab.Performed By: #### 05022 #### [facility] [address] [place] [address], USABasophils/100 WBC (Bld)0.5 %Normal0.0-1.0The [facility] HospitalComment on above:Order Comment: No collection time noted on specimen or requisition. The collection timerecorded is the time of receipt in the lab.Performed By: #### 65238 #### [facility] [address] [address], USAEosinophils (Bld) [#/Vol]0.1 10*3/uLNormal0.0-0.5The [facility] HospitalComment on above:Order Comment: No collection time noted on specimen or requisition. The collection timerecorded is the time of receipt in the lab.Performed By: #### 44485 #### [facility] [address] [facility] [place] [id number], USAEosinophils/100 WBC (Bld)1.3 %Normal0.0-6.0The [facility] HospitalComment on above:Order Comment: No collection time noted on specimen or requisition. The collection timerecorded is the time of receipt in the lab.Performed By: #### 72577 #### [facility] [address] [place] [address], USAErythrocyte distribution width (RBC) [Ratio]13.3 %Normal 11.5-15.0The [facility] HospitalComment on above:Order Comment: No collection time noted on specimen or requisition. The collection timerecorded is the time of receipt in the lab.Performed By: #### [id number] #### [facility] [address] [place] [address], USAHematocrit (Bld) [Volume fraction]34.0 %Low36.0-45.0The [facility] HospitalComment on above:Order Comment: No collection time noted on specimen or requisition. The collection timerecorded is the time of receipt in the lab.Performed By: #### 40902 #### [facility] [address] [place] [place] [address], USAHemoglobin (Bld) [Mass/Vol]11.4 g/dLLow12.0-15.0The [facility] HospitalComment on above:Order Comment: No collection time noted on specimen or requisition. The collection timerecorded is the time of receipt in the lab.Performed By: #### 29933 #### [facility] [address] [place] [address], USAIMMATURE GRANS0.4 %Normal0.0-1.0The [facility] HospitalComment on above:Order Comment: No collection time noted on specimen or requisition. The collection timerecorded is the time of receipt in the lab.Performed By: #### 24015 #### [facility] [address] [place] [address], USALymphocytes (Bld) [#/Vol]1.5 10*3/uLNormal1.2-4.0The [facility] HospitalComment on above:Order Comment: No collection time noted on specimen or requisition. The collection timerecorded is the time of receipt in the lab.Performed By: #### 41243 #### [facility] [address] [place] [address], USALymphocytes/100 WBC (Bld)19.5 %Low20.0-45.0The [facility] HospitalComment on above:Order Comment: No collection time noted on specimen or requisition. The collection timerecorded is the time of receipt in the lab.Performed By: #### 47787 #### [facility] [address] [place] [address], USAMCH (RBC) [Entitic mass]27.7 dfNxauno54.0-33.0The [facility] HospitalComment on above:Order Comment: No collection time noted on specimen or requisition. The collection timerecorded is the time of receipt in the lab.Performed By: #### 85404 #### [facility] [address] [place] [address], [facility] HOSPITALMCHC (RBC) [Mass/Vol]33.5 g/kGAidwgj75.0-35.0The [facility] HospitalComment on above:Order Comment: No collection time noted on specimen or requisition. The collection timerecorded is the time of receipt in the lab.Performed By: #### 75804 #### [facility] [address] [address], [facility] HOSPITALMCV (RBC) [Entitic vol]82.7 qBNyottg01.0-98.0The [facility] HospitalComment on above:Order Comment: No collection time noted on specimen or requisition. The collection timerecorded is the time of receipt in the lab.Performed By: #### [id number] #### [facility] [address] [place] [address], USAMonocytes (Bld) [#/Vol]1.0 10*3/uLNormal0.1-1.0The [facility] HospitalComment on above:Order Comment: No collection time noted on specimen or requisition. The collection timerecorded is the time of receipt in the lab.Performed By: #### [id number] #### [facility] [address] [place] [address], KYGQNJSH06.5 %High5.0-12.0The [facility] Anne HospitalComment on above:Order Comment: No collection time noted on specimen or requisition. The collection timerecorded is the time of receipt in the lab. Performed By: #### [id number] #### [facility] [address]. [place] [id number], USANeutrophils/100 WBC (Bld)65.8 %Pppacc83.0-72.0The [facility] Anne HospitalComment on above:Order Comment: No collection time noted on specimen or requisition. The collection timerecorded is the time of receipt in the lab.Performed By: #### [id number] #### [facility] [address] [place] [address], USANucleated RBC/100 WBC (Bld) [Ratio]0 %Normal0-0The [facility] Anne HospitalComment on above:Order Comment: No collection time noted on specimen or requisition. The collection timerecorded is the time of receipt in the lab.Performed By: #### [id number] #### [facility] [address] [facility] [place] [address], USAPLAT TGP278 10*3/rQQnqekt725-835Ddp [facility] HospitalComment on above:Order Comment: No collection time noted on specimen or requisition. The collection timerecorded is the time of receipt in the lab.Performed By: #### [id number] #### [facility] [address] [place] [address], USARBC (Bld) [#/Vol]4.11 10*6/uLNormal3.80-5.00The [facility] Anne HospitalComment on above:Order Comment: No collection time noted on specimen or requisition. The collection timerecorded is the time of receipt in the lab.Performed By: #### [id number] #### [facility] [address] [facility] [place] [address], USAWBC (Bld) [#/Vol]7.91 10*3/uLNormal4.00-10.60The [facility] Anne HospitalComment on above:Order Comment: No collection time noted on specimen or requisition. The collection timerecorded is the time of receipt in the lab.Performed By: #### [id number] #### [facility] [address] [place] [address], USACOMP METABOLIC PANELon 17-96-7438Duifieg [Mass/Vol]2.9 g/dL Low3.5-5.7The [facility] Anne HospitalComment on above:Order Comment: No: Do not add to previous draw No collection time noted on specimen or requisition. The collection time recorded is the time of receipt in the lab.Performed By: #### [id number] #### [facility] [address] [place] [address], USAALKALINE RQUHAB16 IU/DUujetc73-894Lek [facility] HospitalComment on above:Order Comment: No: Do not add to previous draw No collection time noted on specimen or requisition. The collection time recorded is the time of receipt in the lab.Performed By: #### [id number] #### [facility] [address] [place] [address], USAALT [Catalytic activity/Vol]21 U/LNormal7-52The [facility] HospitalComment on above:Order Comment: No: Do not add to previous draw No collection time noted on specimen or requisition. The collection time recorded is the time of receipt in the lab.Performed By: #### [id number] #### [facility] [address] [place] [address], USAAST [Catalytic activity/Vol]27 U/NUfrapv36-39Bah [facility] HospitalComment on above:Order Comment: No: Do not add to previous draw No collection time noted on specimen or requisition. The collection time recorded is the time of receipt in the lab.Performed By: #### [id number] #### [facility] [address] [place] [address], USABilirubin [Mass/Vol]0.5 mg/dLNormal0.3-1.0The [facility] HospitalComment on above:Order Comment: No: Do not add to previous draw No collection time noted on specimen or requisition. The collection time recorded is the time of receipt in the lab.Performed By: #### [id number] #### [facility] [address] [place] [address], USACalcium [Mass/Vol]8.2 mg/dLLow8.6-10.3The [facility] HospitalComcorewell health gerber hospital on above:Order Comment: No: Do not add to previous draw No collection time noted on specimen or requisition. The collection time recorded is the time of receipt in the lab.Performed By: #### [id number] #### [facility] [address] [place] [address], USAChloride [Moles/Vol]101 mmol/SXhixez04-862Ofn [facility] HospitalComment on above:Order Comment: No: Do not add to previous draw No collection time noted on specimen or requisition. The collection time recorded is the time of receipt in the lab.Performed By: #### [id number] #### [facility] [address] [place] [address], USACO2 [Moles/Vol]22 mmol/ONdbbbe37-75Kmn [facility] HospitalComment on above:Order Comment: No: Do not add to previous draw No collection time noted on specimen or requisition. The collection time recorded is the time of receipt in the lab.Performed By: #### [id number] #### [facility] [address] [place] [address], USACreatinine [Mass/Vol]0.45 mg/dLLow0.60-1.20The [facility] Anne HospitalComment on above:Order Comment: No: Do not add to previous draw No collection time noted on specimen or requisition. The collection time recorded is the time of receipt in the lab.Performed By: #### [id number] #### [facility] [address] [place] [address], USAGFR/1.73 sq M.predicted among non-blacks MDRD (S/P/Bld) [Vol rate/Area]mL/min/{1.73_m2}Normal>60The [facility] Comment on above:Order Comment: No: Do not add to previous draw No collection time noted on specimen or requisition. The collection time recorded is the time of receipt in the lab.Result Comment: [facility]'s estimated glomerular filtration rate (eGFR) will [...] any one group of individuals.Performed By: #### [id number] #### [facility] [address] [place] [address], USAGlucose [Mass/Vol]278 mg/kSSeai93-725Wot [facility] HospitalComment on above:Order Comment: No: Do not add to previous draw No collection time noted on specimen or requisition. The collection time recorded is the time of receipt in the lab.Performed By: #### [id number] #### [facility] [address] [place] [address], USAPotassium [Moles/Vol]3.8 mmol/LNormal3.5-5.1The [facility] HospitalComment on above:Order Comment: No: Do not add to previous draw No collection time noted on specimen or requisition. The collection time recorded is the time of receipt in the lab.Performed By: #### [id number] #### [facility] [address] [place] [address], USAProtein [Mass/Vol]5.3 g/dLLow6.0-8.3The [facility] HospitalComment on above:Order Comment: No: Do not add to previous draw No collection time noted on specimen or requisition. The collection time recorded is the time of receipt in the lab.Performed By: #### [id number] #### [facility] [address] [place] [address], USASodium [Moles/Vol]133 mmol/WGhx063-675Qle [facility] HospitalComment on above:Order Comment: No: Do not add to previous draw No collection time noted on specimen or requisition. The collection time recorded is the time of receipt in the lab.Performed By: #### [id number] #### [facility] [address] [place] [address], USAUrea nitrogen [Mass/Vol]19 mg/dLNormal7-25The [facility] HospitalComment on above:Order Comment: No: Do not add to previous draw No collection time noted on specimen or requisition. The collection time recorded is the time of receipt in the lab.Performed By: #### [id number] #### [address] [address], USACTA CHESTon [id number] CHESTUnSt. Rita's Hospital Department of Radiology [address] [place] [id number] Patient Name: DIANN PATEL : 1955 Sex: F Age: Race: White Pt. Location: [facility] Patient Status: E Ordered Date: 2022 [...] report. Electronically signed: Shane Baldwin. Transcribed by: [id number], User Resident: EDUARDO RUSS Electronically Signed by: SHANE BALDWIN @ 06/29/2022 01:00 AM I personally read this/these film(s) with this residentKettering Health HamiltonComment on above:Order Comment: Pulmonary Embolism HEMOGLOBIN A1Con [id number] [Moles/Vol]111 mmol/LNormalThe [facility] St. Anne HospitalComment on above:Order Comment: No: Do not add to previous draw No collection time noted on specimen or requisition. The collection time recorded is the time of receipt in the lab.Performed By: #### [id number] #### [facility] [address] [place] [address], FVEDtA0s (Bld) [Mass fraction]5.5 %Normal4.0-6.0The [facility] HospitalComment on above:Order Comment: No: Do not add to previous draw No collection time noted on specimen or requisition. The collection time recorded is the time of receipt in the lab.Performed By: #### [id number] #### [facility] [address] [address], USALIPID PROFILEon [id number] [Mass/Vol]223 mg/dL Gvgi936-398Yea [facility] HospitalComment on above:Result Comment: CHOLESTEROL REFERENCE RANGE: 20 YEARS AND OLDER CARDIOVASCULAR RISK Less than 200 mg/dl Low Risk 200 to 239 mg/dl Borderline Risk 240 mg/dl and greater High RiskPerformed By: #### 13922 #### [facility] [address] [facility] [place] [address], USACholesterol in HDL [Mass/Vol]28 mg/vULvhqdh61-16Kot [facility] HospitalComment on above:Result Comment: Slight variation in normal range could be due to gender and/or age. HDL CHOLESTEROL REFERENCE RANGE: 20 years and older Cardiovascular Risk > or =60 mg/dL Desirable 40 TO 59 mg/dL Low Risk <40 mg/dL High RiskPerformed By: #### [id number] #### [facility] [address] [facility] [place] [address], USACholesterol in LDL [Mass/Vol]138 mg/dLHigh0-130The [facility] HospitalComment on above:Result Comment: LDL IS A CALCULATION LDL IS ONLY VALID IF THE TRIG IS LESS THAN 400.Performed By: #### [id number] #### [facility] [address] [place] [address], USACholesterol.total/Cholesterol in HDL [Mass ratio]8.0 {ratio}High.0-4.5The [facility] HospitalComment on above: Performed By: #### [id number] #### [facility] [address] [place] [address], USANON-HDL NLJBMILQZIM462 mg/dLNormMemorial Health SystemComment on above:Performed By: #### [id number] #### [facility] [address] [place] [address], USATriglyceride [Mass/Vol]285 mg/aTQpye04-679Zbe [facility] HospitalComment on above:Result Comment: TRIGLYCERIDE REFERENCE RANGE: 20 YEARS AND OLDER CARDIOVASCULAR RISK LESS THAN 150 mg/dl LOW RISK 150 TO 199 mg/dl BORDERLINE RISK 200 mg/dl AND GREATER HIGH RISKPerformed By: #### [id number] #### [facility] [address] [place] [address], USAVLDL CHOL57 mg/dLHigh0-40H[facility] Community HospitalComment on above:Performed By: #### [id number] #### [facility] [address] [place] [address], USAPOC GLUCOSE LABon 19-91-5763Eigmfzy [Mass/Vol]190 mg/dLHigh 70-100The [facility] HospitalComment on above:Performed By: #### 60326 #### [facility] [address] [place] [address], USAGlucose [Mass/Vol]256 mg/aVWghy95-531Kmj [facility] HospitalComment on above:Performed By: #### [id number] #### [facility] [address] [place] [address], USAGlucose [Mass/Vol]444 mg/sGRvxb18-729Tgg [facility] HospitalComment on above:Performed By: #### [id number], 65209, 11007 #### [facility] [address] [place] [address], USAGlucose [Mass/Vol]304 mg/bXYujx03-372Ijf [facility] HospitalComment on above:Performed By: #### 22413, 42346, [id number] #### [facility] [address] [place] [address], [facility] HOSPITALPO SARS COV2 ANTIGEN NEGATIVEon [id number] SARS COV2 ANTIGEN NEGNegativeNormalNEGATIVEThe [facility] St. Anne HospitalComment on above:Result Comment: Negative results should be [...] antigen from SARS-CoV-2 in direct nasopharyngeal swab (RO[employer] DES[employer]ER) specimens from individuals who are suspected of [...] Compliance, or Certificate of Accreditation.Performed By: #### [id number] #### [facility] [address] [place] [address], USATROPONIN-Ion [id number] I.cardiac [Mass/Vol]1.52 ng/mLCritically high0.00-0.04The [facility] Anne HospitalComment on above:Order Comment: No: Do not add to previous draw No collection time noted on specimen or requisition. The collection time recorded is the time of receipt in the lab.Result Comment: M-PREVIOUS CRITICAL RESULT REFERENCE RANGES: 0.00 - 0.04 ng/ml NORMAL 0.05 - 0.50 ng/ml INDETERMINATE > 0.50 ng/ml CONSISTENT WITH AN M.I.Performed By: #### [id number] #### [facility] [address] [place] [address], USATroponin I.cardiac [Mass/Vol]1.77 ng/mLCritically high 0.00-0.04The [facility] HospitalComment on above:Order Comment: No: Do not add [...] ng/ml CONSISTENT WITH AN M.I.Performed By: #### [id number] #### [facility] [address] [place] [address], USATSH3 WITH REFLEX FT4on [id number] 3RD GENERATION1.96 uIU/mLNormal0.34-5.60The [facility] HospitalComment on above: Performed By: #### 21257 #### [facility] [address] [address], USAUFH HEPARIN ASSAYon [id number] HEPARIN0.15 IU/mLCritically low0.30-0.70The [facility] Anne HospitalComment on above:Result Comment: RESULTS CHECKED AND CALLED. ACCURATELY READ BACK BY Isabela Shannon RN at 2220 PMW 06-29-22. Rivaroxaban and Apixaban will interfere with the anti Xa assay used to monitor UFH and LMWH.Performed By: #### [id number] #### [facility] [address] [place] [place] [address], USAUNFRACTIONATED HEPARIN<0.10Critically low0.30-0.70The [facility] Anne HospitalComment on above:Result Comment: Result checked and called. Accurately read back by JENNIFER WILLINGHAM RN @1404 06/29/22 Rivaroxaban and Apixaban will interfere with the anti Xa assay used to monitor UFH and LMWH.Performed By: #### [id number] #### [facility] [address] [place] [address], USAUNFRACTIONATED HEPARIN<0.10Critically low0.30-0.70The [facility] Anne HospitalComment on above:Result Comment: RESULTS CHECKED AND CALLED. ACCURATELY READ BACK BY REG KILGORE RN @ 0531 Rivaroxaban and Apixaban will interfere with the anti Xa assay used to monitor UFH and LMWH.Performed By: #### 92405 #### [facility] [address] [place] [address], A[facility]-LAGUNA HOSPITALAPTTon [id number] Coag (Bld) [Time]32.0 sNormal 25.0-35.0The [facility] Anne HospitalComment on above:Result Comment: ALL RESULTS MUST BE [...] BE USED FOR THIS PURPOSE.Performed By: #### [id number] #### [facility] [address] [place] [address], [facility]-LAG[facility]NA HOSPITALBNPon [id number] peptide B (Bld) [Mass/Vol] 3794.0 pg/mLCritically high<=900.0The [facility] HospitalComment on above: Performed By: #### CBC #### [facility] [address] [place] [address] Dr. Sruthi EVANGELISTA ADMITon [id number] [Catalytic activity/Vol]51 U/L Akpawg00-134Lch [facility] HospitalComment on above:Performed By: #### CBC #### [facility] [address] [place] [address] [address] Sruthi Bernardo.MB [Mass/Vol]2.23 ng/mLNormal<=3.60The [facility] Comment on above:Performed By: #### CBC #### [facility] [address] [place] [address] [address] Sruthi CoatsOP705.8 pg/mLCritically high4.0-51.3TC[facility] Comment on above:Result Comment: CUT-OFF POINTS HAVE BEEN ESTABLISHED BASED ON THE FOURTH UNIVERSAL DEFINITIONS OF MYOCARDIAL INFARCTION. THE UPPER REFERENCE LIMIT (URL) OF TROPONIN, DEFINED THE 99TH PERCENTILE OF cTnI DISTRIBUTION IN A REFERENCE POPULATION, HAS BEEN CONFIRMED THE DECISION THRESHOLD FOR VT DIAGNOSIS.Performed By: #### CBC #### [facility] [address] [place] [address] [address] Sruthi Jo73 ng/mLNormal9-82Community Memorial HospitalComment on above: Performed By: #### CBC #### [facility] [address] [address] [address] Sruthi Fisher W MANUAL DIFFon [id number] LYMPH #NormalCommunity Memorial HospitalComment on above:Performed By: #### CBCMAN ####[facility] Dfuictal[address] [place], [place] [address]Dr. Yilan ChangATYPICAL LYMPH %NormalCommunity Memorial HospitalComment on above:Performed By: #### CBCMAN ####[facility] [address] [place] [address]Dr. Yilan ChangBAND #0.1 103/ulNormal0.0-0.3TCleveland Clinic Euclid HospitalComment on above: Performed By: #### CBCMAN ####[facility] [address] [place] [address]Dr. Yilan ChangBAND %1 %Normal0-5The [facility] Comment on above:Performed By: #### CBCMAN ####[facility] Vdgpzlks[address] [place], [place] [address]Dr. Yilan ChangBASOM #0.00 103/ulNormal 0.00-0.10The [facility] HospitalComment on above:Performed By: #### CBCMAN ####[facility] Esmhnobcnd[address] [place], [place] [address]Dr. Yilan ChangBASOM %0.0 %Critically low0.2-2.0The [facility] HospitalComment on above:Performed By: #### CBCMAN ####[facility] [address] [place] [address]Dr. Yilan ChangBLAST #NormalThe [facility] Comment on above:Performed By: #### CBCMAN ####[facility] [address] [place] [address]Dr. Yilan ChangBLAST %NormalThe [facility] HospitalComment on above:Performed By: #### CBCMAN ####[facility] Bsydpcynid[address] [place], [place] [address]Dr. Yilan ChangCORRECTED WBC Normal4.0-11.0The [facility] Memorial HospitalComment on above:Performed By: #### CBCMAN ####[facility] Xgusltpkmu[address] [place], [place] [address]Dr. Yilan ChangEOS #0.13 103/ulNormal0.00-0.70The [facility] HospitalComment on above: Performed By: #### CBCMAN ####[facility] Fdebmpncgw[address] [place], [place] [address]Dr. Yilan ChangEOS%1.0 %Normal0.9-7.0The [facility] HospitalComment on above:Performed By: #### CBCMAN ####[facility] Vkfmjjogru[address] [place], [place] [address]Dr. Yilan BfdrhHLN45.8 % Wwvufb42.0-48.0The [facility] HospitalComment on above:Performed By: #### CBCMAN ####[facility] Pgfqqdiuor[address] [place], [place] [address]Dr. Yilan DtftzCEE09.5 g/ppSkwybi37.0-16.0The [facility] HospitalComment on above: Performed By: #### CBCMAN ####[facility] Vffotvkgme[address] [place], [place] [address]Dr. Yilan ChangLYMPHM #1.51 103/ulNormal1.20-3.80The [facility] HospitalComment on above:Performed By: #### CBCMAN ####[facility] [address] [place] [address]Dr. Sruthi Arechiga LYMPHM%12.0 %Critically low20.5-60.0The [facility] Memorial HospitalComment on above: Performed By: #### CBCJOSE ANGEL ####[facility] [address] [place] [address]Dr. Sruthi ArechigaMCH27.2 nkOdzndl03.7-34.0The [facility] HospitalComment on above:Performed By: #### CBCJOSE ANGEL ####[facility] [address] [place] [address]Dr. Sruthi ArechigaMCHC32.2 g/dl Kgaxvf05.9-35.2The [facility] HospitalComment on above:Performed By: #### CBCJOSE ANGEL ####[facility] Kxcuuvqtdb[address] [place], [place] [address]Dr. Sruthi ArechigaMCV84.3 aMCrihzm49.0-99.0The [facility] HospitalComment on above: Performed By: #### CBCJOSE ANGEL ####[facility] Bnpqvehzbc[address] [place], [place] [address]Dr. Yilan ChangMETAMYELOCYTE #NormalThe [facility] HospitalComment on above:Performed By: #### CBCJOSE ANGEL ####[facility] Fmanstafcu[address] [place], [place] [address]Dr. Kamalalan ChangMETAMYELOCYTE %NormalThe [facility] HospitalComment on above:Performed By: #### CBCJOSE ANGEL ####[facility] Sknshywvrp[address] [place], [place] [address]Dr. Sruthi ChangMONOM#1.64 103/ulCritically high0.30-0.80The [facility] HospitalComment on above:Performed By: #### CBCJOSE ANGEL ####[facility] Bimhougsie[address] [place], [place] [address]Dr. Sruthi ArechigaMONOM%13.0 %Critically high 1.7-12.0The [facility] HospitalComment on above:Performed By: #### CBCJOSE ANGEL ####[facility] Aohfplsdpn[address] [place], [place] [address]Dr. Kamalalan TabjqLEA05.7 fLNormal9.5-13.5The [facility] HospitalComment on above: Performed By: #### CBCJOSE ANGEL ####[facility] [address]vuhw[address] [id number]. Yilan ChangMYELOCYTE #NormalThe [facility] Comment on above:Performed By: #### CBCJOSE ANGEL ####[facility] Mkcrjrfrft[address] [address]Dr. Yilan ChangMYELOCYTE %NormalThe [facility] HospitalComment on above:Performed By: #### CBCJOSE ANGEL ####[facility] [address] [address]Dr. Yilan ChangNRBCNormalThe [facility] HospitalComment on above:Performed By: #### CBCJOSE ANGEL ####[facility] Fgndszjqdt[address] [place], [place] [address]Dr. Yilan ChangPLT 237 103/kiQuhssc647-280Lzo [facility] HospitalComment on above:Performed By: #### ISAAK ####[facility] Akfdptjsdp[address] [place], [place] [address]Dr. Yilan ChangRBC4.60 106/ulNormal4.20-5.40The [facility] HospitalComment on above:Performed By: #### ISAAK ####[facility] Uuhnhcqloq[address] [place], [place] [address]Dr. Yilan QoaxkJZS56.2 %Nuabqy20.0-15.0The [facility] HospitalComment on above:Performed By: #### CBCJOSE ANGEL ####[facility] Cpfqkjsicd[address] [place], [place] [address]Dr. Yilan ChangSEG #9.20 103/ulCritically high1.40-6.50The [facility] HospitalComment on above:Performed By: #### CBCJOSE ANGEL ####[facility] Axwcinbhnn[address] [place], [place] [address]Dr. Yilan ChangSEG %73.0 %Ylrjnj37.0-75.0The [facility] HospitalComment on above:Performed By: #### CBCJOSE ANGEL ####[facility] Epphsvwuak[address] [place], [place] [address]Dr. Yilan BewjdBPS97.6 103/ulCritically high 4.0-11.0The [facility] HospitalComment on above:Performed By: #### CBCMAN ####[facility] [address] [id number]. Sruthi ArechigaCovid-19 PCR (CVDTB)on 05-00-3002NYCB-CoV-2 (COVID-19) RNA KOLE+probe Ql (Unsp spec)Not detectedNormalNOT DETECTEDThe [facility] HospitalComment on above:Result Comment: When diagnostic testing is [...] for this test is supported by the [place] [employer] and Human Service's declaration that [...] no longer be used).Performed By: #### CVDTB ####[facility] [address] [id number] ArechigaLIPASEon 90-63-4665Quzizl [Catalytic activity/Vol]75.0 U/L Bounws43.0-393.0The [facility] HospitalComment on above:Performed By: #### CBC #### [facility] [address] [address] [address] Sruthi ArechigaPOINT OF CARE GLUCOSEon 33-83-6166Xuntcux [Mass/Vol]351 mg/dL Critically urwc47-890Jak [facility] HospitalComment on above:Performed By: #### CVDTBH #### [facility] [address] [place] [address] Dr. Sruthi ArechigaPROF 14(COMP METB)on 74-77-5269Yyebwmy [Mass/Vol]2.5 g/dL Critically low3.4-5.0The [facility] HospitalComment on above:Performed By: #### CMP #### [facility] [address] [place] [address] Dr. Sruthi ArechigaAlbumin/Globulin [Mass ratio]0.6 {ratio}NormalThe [facility] HospitalComment on above:Performed By: #### CMP #### [facility] [address] [place] [address] Dr. Sruthi GallowayP [Catalytic activity/Vol]132 U/LCritically ezwq59-406Jvx [facility] HospitalComment on above:Performed By: #### CMP #### [facility] [address] [place] [address] Dr. Sruthi GallowayT [Catalytic activity/Vol]32 U/VTqrlnz24-65Vqr [facility] HospitalComment on above:Performed By: #### CMP #### [facility] [address] [place] [address] Dr. Sruthi Corral gap [Moles/Vol]19.2 mmol/LNormalThe [facility] Comment on above:Performed By: #### CMP #### [facility] [address] [place] [address] Dr. Sruthi ArechigaAST [Catalytic activity/Vol]24 U/YRlnwfc08-60Xdk [facility] HospitalComment on above:Performed By: #### CMP #### [facility] [address] [place] [address] Dr. Sruthi ArechigaBilirubin [Mass/Vol]0.5 mg/dLNormal0.2-1.0The [facility] Comment on above:Performed By: #### CMP #### [facility] [address] [place] [address] Dr. Sruthi ArechigaCalcium [Mass/Vol]9.5 mg/dLNormal8.5-10.1The [facility] Comment on above:Performed By: #### CMP #### [facility] [address] [place] [address] Dr. Sruthi ArechigaChloride [Moles/Vol]95 mmol/LCritically hzy97-138Yae [facility] HospitalComment on above:Performed By: #### CMP #### [facility] [address] [address] [address] Sruthi ArechigaCO2 [Moles/Vol]20.3 mmol/LCritically low21.0-32.0The [facility] HospitalComment on above:Performed By: #### CMP #### [facility] [address] [address] [address] Sruthi ArechigaCreatinine [Mass/Vol]0.78 mg/dLNormal0.55-1.02The [facility] HospitalComment on above:Performed By: #### CMP #### [facility] [address] [place] [address] Dr. Negro ChangEGFR-AF SAMMARINESE>60Normal>=60The [facility] HospitalComment on above:Performed By: #### CMP #### [facility] [address] [address] [address] Sruthi JoyGFR-NON AF SAMMARINESE>60Normal>=60The [facility] HospitalComment on above:Performed By: #### CMP #### [facility] [address] [address] [address] Sruthi ArechigaGlobulin (S) [Mass/Vol]4.3 g/dLNormalThe [facility] HospitalComment on above:Performed By: #### CMP #### [facility] [address] [address] [address] Sruthi ArechigaGlucose [Mass/Vol]389 mg/dLCritically yycd12-631Rcj [facility] HospitalComment on above:Performed By: #### CMP #### [facility] [address] [address] [address] Sruthi ArechigaPotassium [Moles/Vol]3.5 mmol/LNormal3.5-5.1The [facility] Comment on above:Performed By: #### CMP #### [facility] [address] [address] [address] Sruthi ArechigaProtein [Mass/Vol]6.8 g/dLNormal6.4-8.2The [facility] Comment on above:Performed By: #### CMP #### [facility] [address] [address] [address] Sruthi ArechigaSodium [Moles/Vol]131 mmol/LCritically uag090-296Ttp [facility] HospitalComment on above:Performed By: #### CMP #### [facility] [address] [place] [address] Dr. Sruthi Granger nitrogen [Mass/Vol]24.0 mg/dLCritically high7.0-18.0The [facility] HospitalComment on above:Performed By: #### CMP #### [facility] [address] [place] [address] Dr. Sruthi Granger nitrogen/Creatinine [Mass ratio]30.8 mg/mgNormalThe [facility] HospitalComment on above:Performed By: #### CMP #### [facility] [address] [place] [address] Dr. Sruthi ArechigaPROTHROMBIN TIMEon [id number] Coag (PPP) [Relative time]1.01 {INR}Normal0.91-1.16The [facility] HospitalComment on above: Result Comment: ACCCP RECOMMENDED INR [...] OPTIMAL THERAPEUTIC RANGE. CHEST 1995;108:231S-246S.Performed By: #### [id number] #### [facility] [address] [place] [address], USAPT Coag (PPP) [Time]13.3 bFkjlui91.3-14.8The [facility] HospitalComment on above:Result Comment: ALL RESULTS MUST BE INTERPRETED WITH RESPECT TO BLOOD DRAWING ARTIFACT OR DILUTION ERROR OF ANTICOAGULANT AT THE TIME OF SAMPLING.Performed By: #### [id number] #### [facility] [address] [place] [address], USAPROTIMEon 81-49-2348VYS Coag (PPP) [Relative time]0.98 {INR}NormalCommunity Memorial HospitalComment on above:Performed By: #### CVDTBH #### [facility] [address] [place] [address] Dr. Sruthi Miller [facility] HospitalComment on above:Result Comment: DESIRED INR: 2.0 - 3.0 CONDITIONS NOT LISTED BELOW 2.5 - 3.5 FOR PROSTHETIC HEART VALVE REPLACEMENT 2.5 - 3.5 RECURRENT THROMBOSIS Performed By: #### CVDTBH #### [facility] [address] [place] [address] Dr. Sruthi Scott Coag (PPP) [Time]10.6 sNormal9.0-11.6The [facility] Comment on above:Performed By: #### CVDTBH #### [facility] [address] [place] [address] Dr. Sruthi Overton 71-89-2625zXCP Coag (Bld) [Time]32.5 gCfkdrn32.3-36.2Community Memorial HospitalComment on above:Performed By: #### CVDTBH #### [facility] [address] [place] [address] Dr. Sruthi Tucker, HIGH SENSITIVITYon 14-83-2653LOKTQF0447.1 pg/mL Critically high4.0-51.3The [facility] HospitalComment on above:Result Comment: CUT-OFF POINTS HAVE BEEN ESTABLISHED BASED ON THE FOURTH UNIVERSAL DEFINITIONS OF MYOCARDIAL INFARCTION. THE UPPER REFERENCE LIMIT (URL) OF TROPONIN, DEFINED THE 99TH PERCENTILE OF cTnI DISTRIBUTION IN A REFERENCE POPULATION, HAS BEEN CONFIRMED THE DECISION THRESHOLD FOR VT DIAGNOSIS.Performed By: #### HSTROPN #### [facility] [address] [place], [place] [address] Dr. Sruthi AbreuTROP1816.7 pg/mLCritically high4.0-51.3The [facility] Comment on above:Result Comment: CUT-OFF POINTS HAVE BEEN ESTABLISHED BASED ON THE FOURTH UNIVERSAL DEFINITIONS OF MYOCARDIAL INFARCTION. THE UPPER REFERENCE LIMIT (URL) OF TROPONIN, DEFINED THE 99TH PERCENTILE OF cTnI DISTRIBUTION IN A REFERENCE POPULATION, HAS BEEN CONFIRMED THE DECISION THRESHOLD FOR VT DIAGNOSIS.Performed By: #### CBC #### [facility] [address] [place], [place] [address] Dr. Sruthi Moses 92-42-4750XKL0.865 uIU/mLCritically high0.358-3.740The [facility] HospitalComment on above:Performed By: #### TSH, LIPA, BNP, CMADM ####[facility] [address] [place], [place] [address]InDr. Sruthi Mercer HEPARIN ASSAYon 83-36-8545OKUWHPRGSNMPNE HEPARIN<0.10Critically low0.30-0.70The [facility] HospitalComment on above:Order Comment: No: Do not add [...] to monitor UFH and LMWH.Performed By: #### [id number] #### [facility] [address] [place] [address], USAXR CHEST 1 Von 13-64-5976VC CHEST 1 VEXAMINATION: XR CHEST 1 V [...] Electronically authenticated by: GERMAIN COY Date: 2022 06:58[facility] Vital Signs Date TimeVital SignValuePerforming VtezyxyfpMdxixfrn07-77-2047 10:40-0500Body ugttem915.5 cmSthomas Cedeño [employer]ER [employer]ER DESIGNER Work Phone: [facility] HospitalAkxwyufkmk03-18-8635 10:40-0500Body mass index (BMI) [Ratio]31.78 kg/v5HownmfJohnna Cedeño [employer] DESIGNER Work Phone: [facility] NorthMkjwpfpmii32-96-9390 10:40-0500Body vxmunk90.83 kgJohnna Cedeño [employer]ER [employer]ER DESIGNER Work Phone: [facility] HospitalHuzjghwyay38-94-6153 10:40-0500Diastolic blood whbekvep93 mm[Hg]Johnna Cedeño [employer] DES[employer]ER Work Phone: [facility] HospitalOzeqmkvkvk87-49-4337 10:40-0500Heart rate67 /min Johnna Cedeño [employer] DES[employer]ER Work Phone: [facility] HospitalVycjtjgqoc81-00-2056 10:40-0500Respiratory rate16 /minSthomas Cedeño [employer]ER DES[employer]ER Work Phone: [address] [address]Xbkmmmosco67-11-4694 10:40-1623UlZ5% (BldA) [Mass fraction]94 %Johnna Cedeño [employer] DES[employer]ER Work Phone: [address] [address]Hpbknxihzm23-81-8621 10:40-0500Systolic blood jykzwqtt671 mm[Hg]Johnna Cedeño [employer] DES[employer]ER Work Phone: [facility] HospitalOpticmcinc27-22-8022 15:10-0500Body roagwc103.5 cmAlexis Gilmore DPM Work Phone: [facility] HospitalIyswyxeyee71-50-4041 15:10-0500Body mass index (BMI) [Ratio]32.01 kg/y5RafpomdoAlexis Gilmore DPM Work Phone: [facility] HospitalNaoqnpmssc70-10-3709 15:10-0500Body rozpfj10.38 kgAlexis Gilmore DPM Work Phone: [facility] HospitalGoxqxiwivb16-74-1108 15:10-0500Respiratory rate18 /minAlexis Gilmore DPM Work Phone: [facility] HospitalWjgyxtzrza48-49-4824 11:13-0400Body iccixt089.5 cmSthomas Cedeño RO[employer]ER [employer]ER DESIGNER Work Phone: [facility] HospitalYudobivimu97-52-0858 11:13-0400Body mass index (BMI) [Ratio]32.01 kg/s4YtfzgoJohnna Cedeño [employer] DESIGNER Work Phone: [facility] HospitalMwzqtdzsbj51-41-6944 11:13-0400Body temperature 97.81 [degF]Johnna Cedeño [employer] DES[employer]ER Work Phone: [facility] HospitalWrwqdomuyy45-00-6087 11:13-0400Body dwafvt94.38 kgJohnna Cedeño [employer]ER DESIGNER Work Phone: [facility] HospitalJsjtotdrtg36-83-2359 11:13-0400Diastolic blood vbdriqkl90 mm[Hg]Johnna Cedeño [employer]ER [employer]ER DESIGNER Work Phone: [facility] HospitalTuaniovnla50-09-3749 11:13-0400Heart rate61 /min Johnna Cedeño [employer]ER [employer]ER DESIGNER Work Phone: [facility] HospitalLvsnobybid85-59-0866 11:13-0400Respiratory rate16 /minSthomas Cedeño RO[employer]ER [employer]ER DESIGNER Work Phone: [facility] HospitalRshgqlsxjv75-30-0565 11:13-2577RiA4% (BldA) [Mass fraction]96 %Johnna Cedeño [employer]ER DESIGNER Work Phone: [facility] HospitalEehepktykz06-57-1857 11:13-0400Systolic blood oampuumg410 mm[Hg]Johnna Cedeño [employer]ER [employer]ER DESIGNER Work Phone: [facility] HospitalBsfymidvdz79-76-2454 08:15-0400Diastolic blood qlmkwune95 mm[Hg]Agustin [facility]10-03-2025 08:15-0400Systolic blood kdebuocu312 mm[Hg]Agustin [facility]09-18-2025 14:31-0400 Diastolic blood nspntweu50 mm[Hg][facility] 14:31-0400Heart rate87 /minStanikaer [facility]09-18-2025 14:31-0400Systolic blood mm[Hg]Agustin [facility] 07-27-2025 14:01-0400Body eugdsx429.5 cmAlexis Dillon DPM Work Phone: [facility] NorthQvefrenbdl66-74-2900 14:01-0400Body mass index (BMI) [Ratio]33.47 kg/h5RuqqjdaoAlexis Gilmore DPM Work Phone: [facility] NorthFcroxnzjot61-19-6192 14:01-0400Body fmaitv90.01 kgNicjessica Gilmore DPM Work Phone: [facility] NorthCdweuxaupn84-63-6978 14:01-0400Respiratory rate16 /minAlexis Dillon DPM Work Phone: [facility] NorthHibbwxaigc31-61-1350 14:00-0400Diastolic blood aedixavo32 mm[Hg]Champ Bell II Work Phone: [facility]09-12-2025 14:00-0400 Heart rate64 /Tierael Bell II Work Phone: 1(270)665-[address] [place], [place] [address]109-12-2025 14:00-0400 Respiratory rate16 /minDdarvinel Bell II Work Phone: 1(758)466-[address] [place], [place] [address]757709-12-2025 14:00-0400 SaO2% (BldA) [Mass fraction]96 %Champ Bell II Work Phone: [facility]09-12-2025 14:00-0400 Systolic blood mm[Hg]Champ Bell II Work Phone: 1(047)172-[address] [place], [place] [address]109-12-2025 10:41-0400 Body telnkq888.48 cmDakathi Bell II Work Phone: [facility]09-12-2025 10:41-0400 Body uswvwckxfza96.9 [degF]Champ Bell II Work Phone: 1(419)987-[address] [place], [place] 7[address]109-12-2025 10:41-0400 Body blnukx11.6 kgDakathi Bell II Work Phone: 1(419)826-[address] [place], [place] [address]109-10-2025 11:03-0400 Body .5 cmSthomas Cedeño [employer]ER [employer]ER DESIGNER Work Phone: [facility] NorthKdlhnibbyy24-91-7949 11:03-0400Body mass index (BMI) [Ratio]33.47 kg/t8AgnhlkJohnna Cedeño [employer]ER DESIGNER Work Phone: [facility] NorthAvzwrbltll20-98-6996 11:03-0400Body ekfxbn48.01 kgJohnna Cedeño RO[employer]ER [employer]ER DESIGNER Work Phone: [facility] NorthGvdampsacr99-84-7910 11:03-0400Diastolic blood dxnajkml84 mm[Hg]Johnna Cedeño [employer]ER DESIGNER Work Phone: [facility] HospitalKravxtlutb72-42-3167 11:03-0400Heart rate67 /min Johnna Cedeño [employer]ER DESIGNER Work Phone: [facility] NorthLnydbdngya57-32-4630 11:03-0400Respiratory rate16 /minSthomas Cedeño RO[employer]ER [employer]ER DESIGNER Work Phone: [facility] NorthZxjweacmxb48-30-8038 11:03-3755OhJ1% (BldA) [Mass fraction]94 %Johnna Cedeño [employer]ER DESIGNER Work Phone: [facility] HospitalOotswtypzp64-38-6275 11:03-0400Systolic blood gnhescxo169 mm[Hg]Johnna Cedeño [employer]ER DESIGNER Work Phone: [facility] HospitalNrjtnleyvt14-10-3566 11:15-0400Body inpkmb745.5 cmAlexis Gilmore DPM Work Phone: [phone] HospitalLrcfzlcfhi94-02-1425 11:15-0400Body mass index (BMI) [Ratio]31.46 kg/y5SvoifhckAlexis Gilmore DPM Work Phone: [facility] NorthFecgjhcfzp77-25-2873 11:15-0400Body dovkyb42.02 kgAlexis Glimore DPM Work Phone: [facility] NorthAsrnsawaht95-18-9159 11:15-0400Respiratory rate16 /minAlexis Gilmore DPM Work Phone: [facility] NorthLngexhsxas19-81-4047 14:13-0400Body jdqefa451.5 cmAlexis Gilmore DPM Work Phone: [facility] NorthYhhnlvoyzm61-36-1627 14:13-0400Body mass index (BMI) [Ratio]31.46 kg/g0BazbchsfAlexis Gilmore DPM Work Phone: [facility] NorthCjswebxxnc73-76-6693 14:13-0400Body jjjgoz48.02 kgAlexis Gilmore DPM Work Phone: [facility] NorthOedryvridt73-82-5898 14:13-0400Respiratory rate16 /Efra Gilmore DPM Work Phone: [facility] NorthOqdbhfcgwx20-96-0828 11:25-0400Diastolic blood mm[Hg]Champ Bell II Work Phone: 1(774)707-[address] [place], [place] 7[address]107-31-2025 11:25-0400 Heart rate63 /Britney Bell II Work Phone: 1(584)967-[address] [place], [place] 7952107-31-2025 11:25-0400 Respiratory rate16 /Britney Bell II Work Phone: [facility]07-31-2025 11:25-0400 SaO2% (BldA) [Mass fraction]95 %Champ Bell II Work Phone: [facility]07-31-2025 11:25-0400 Systolic blood bzueoaeb367 mm[Hg]Champ Bell II Work Phone: 1(224)861-[address] [place], [place] 7[address]107-31-2025 10:55-0400 Body rrikabycuwi84.1 [degF]Champ Bell II Work Phone: [facility]07-31-2025 08:55-0400 Body .48 cmDakathi Bell II Work Phone: [facility]07-31-2025 08:55-0400 Body ezxdxa90.92 kgDakathi Bell II Work Phone: 1(686)564-[address] [place], [place] 7[address]107-16-2025 11:02-0400 Body .5 Job Cronin MD Work Phone: [facility] NorthYmaxskyyso88-96-4817 11:02-0400Body mass index (BMI) [Ratio]31.46 kg/b3UfiwqrDale Cronin MD Work Phone: [facility] NorthPvjokpmcti28-89-8580 11:02-0400Body lwgipx33.02 kgDale Cronin MD Work Phone: [facility] NorthUuxjxkdlxe86-93-4958 11:02-0400Diastolic blood wdqqbaqq13 mm[Hg]Dale Cronin MD Work Phone: [facility] NorthOpwqgwjdjm98-38-0313 11:02-0400Systolic blood mm[Hg]Dale Cronin MD Work Phone: [facility] NorthAhaycqawqt71-26-0039 13:47-0400Body gzcgil022.5 Bunny Cedeño [employer]ER DESIGNER Work Phone: [facility] NorthJxcgzvckqw29-50-1186 13:47-0400Body mass index (BMI) [Ratio]32.19 kg/b3ZdwpsnJohnna Cedeño [employer]ER [employer]ER DESIGNER Work Phone: [facility] NorthGcigqkcwgn08-69-9358 13:47-0400Body tzggvo78.83 kgJohnna Cedeño RO[employer]ER [employer]ER DESIGNER Work Phone: [facility] NorthHejujddjkv08-14-9037 13:47-0400Diastolic blood ppecmnfx00 mm[Hg]Johnna Cedeño [employer]ER DESIGNER Work Phone: [facility] NorthRnqpjqaxtg82-51-6047 13:47-0400Heart rate69 /min Johnna Cedeño [employer]ER DESIGNER Work Phone: [facility] HospitalJksriivcfc18-85-8747 13:47-0400Respiratory rate16 /minSthomas Cesar [employer]ER [employer]ER DESIGNER Work Phone: [facility] HospitalEalogxahto16-65-9968 13:47-6929LxO1% (BldA) [Mass fraction]95 %Johnna Cedeño RO[employer]ER DESIGNER Work Phone: [facility] HospitalGxeuylnoko66-74-9737 13:47-0400Systolic blood mtvykujv651 mm[Hg]Johnna Cedeño [employer]ER DESIGNER Work Phone: [facility] HospitalSecspihfee26-04-4087 14:34-0400Body eghdml952.5 cmAlexis Gilmore DPM Work Phone: [facility] NorthAusilhtorn37-81-8518 14:34-0400Body mass index (BMI) [Ratio]31.64 kg/m0VrbgxnxzAlexis Gilmore DPM Work Phone: [facility] NorthWqrzftjomi16-01-0555 14:34-0400Body fvoyuu98.47 kgAlexis Gilmore DPM Work Phone: [facility] NorthZazcxmqhlm55-61-1141 14:34-0400Respiratory rate16 /minAlexis Gilmore DPM Work Phone: [facility] NorthHkyltnsvrx66-69-6675 11:02-0400Body dlcltu082.5 Lalitajenny Woolstock RO[employer]ER [employer]ER DESIGNER Work Phone: [facility] NorthTutokxrjlh90-60-4419 11:02-0400Body mass index (BMI) [Ratio]31.79 kg/i5JeuqefJohnna Castanedavely RO[employer]ER [employer]ER DESIGNER Work Phone: [facility] HospitalRdjpddqyrp27-78-2782 11:02-0400Body .83 kgJohnna Cedeño RO[employer]ER [employer]ER DESIGNER Work Phone: [facility] HospitalJxfaadmboo52-07-1731 11:02-0400Diastolic blood mm[Hg]Johnna Cedeño RO[employer]ER DESIGNER Work Phone: [facility] HospitalBfitsevkmp61-01-5233 11:02-0400Heart rate61 /min Johnna Cedeño RO[employer]ER [employer]ER DESIGNER Work Phone: 1(419)483-[address] [place], [place] [address]Wvcjqypmri78-20-9611 11:02-0400Respiratory rate16 /Roshni Cedeño RO[employer]ER [employer]ER DESIGNER Work Phone: 1(076)[facility] [place], [place] [address]Fufthjawmi58-92-0693 11:02-8804VaE6% (BldA) [Mass fraction]93 %Johnna Cedeño RO[employer]ER [employer]ER DESIGNER Work Phone: 1(025)[facility]-7811[facility] NorthKzhqpykesp99-99-4083 11:02-0400Systolic blood gwzodmzo623 mm[Hg]Johnna Cedeño [employer]ER DESIGNER Work Phone: 1(646)[address] [place], [place] 1454804-09-2025 12:00-0400Diastolic blood afjkfwkc22 mm[Hg]Champ Bell II Work Phone: 1(226)[address] [place], [place] 2989904-09-2025 12:00-0400 Heart rate67 /minDaniel Bell II Work Phone: 1(002)[address] [place], [place] 2989904-09-2025 12:00-0400 Respiratory rate16 /minDaniel Bell II Work Phone: 1(434)[address] [place], [place] 2989904-09-2025 12:00-0400 SaO2% (BldA) [Mass fraction]93 %Champ Bell II Work Phone: 1(916)[address] [place], [place] 2989904-09-2025 12:00-0400 Systolic blood wvxvlnvo959 mm[Hg]Champ Bell II Work Phone: 1(471)[address] [place], [place] 2989904-09-2025 11:49-0400 Body iqheyk179.48 cmDaniel Bell II Work Phone: 1(335)[address] [place], [place] 2989904-09-2025 07:53-0400 Body cngvacbcpql03 [degF]Champ Ebll II Work Phone: 1(976)[address] [place], [place] 2989904-09-2025 06:00-0400 Body atlmbm25.7 kgDaniel Bell II Work Phone: 1(997)[address] [place], [place] 2989904-08-2025 20:16-0400 Diastolic blood mm[Hg]Champ Bell II Work Phone: 1(834)[address] [place], [place] 2989904-08-2025 20:16-0400 Heart rate56 /Britney Bell II Work Phone: 1(128)922-[address] [place], [place] 8757704-08-2025 20:16-0400 Respiratory rate16 /Britney Bell II Work Phone: 1(162)[address]04-08-2025 20:16-0400 SaO2% (BldA) [Mass fraction]93 %Champ Bell II Work Phone: 1(974)400-[address] [place], [place] 8757704-08-2025 20:16-0400 Systolic blood ukdkutyt159 mm[Hg]Champ Bell II Work Phone: 1(015)[address]04-08-2025 13:36-0400 Body .48 cmDakathi Bell II Work Phone: 1(028)[address]04-08-2025 13:36-0400 Body suzunpbchwx33.5 [degF]Champ Bell II Work Phone: 1(019)[address]04-08-2025 13:36-0400 Body qyqfum04.2 kgDakathi Bell II Work Phone: 1(356)[address]02-26-2025 13:49-0500 Diastolic blood nntwaibe83 mm[Hg]Trace Ramírez MD, PhDP Phys[facility] 01-05-2025 13:49-0500Systolic blood kbhpgcul555 mm[Hg]Trace Ramírez MD, PhD [facility] Vnddqkpmoa31-00-1219 13:19-0500Body qanubk882.5 Bunny Cedeño [employer]ER DESIGNER Work Phone: [facility] NorthBceiunpemm09-51-0677 13:19-0500Body mass index (BMI) [Ratio]32.15 kg/q3JmzajmJohnna Cedeño [employer]ER DESIGNER Work Phone: 1([phone] [facility] HospitalDzvpishcsn65-71-2448 13:19-0500Body nmuwqv90.74 kgJohnna Cedeño RO[employer]ER [employer]ER DESIGNER Work Phone: [facility] NorthLyhclexxsl59-43-6983 13:19-0500Diastolic blood mqgyftho48 mm[Hg]Johnna Cedeño [employer]ER DESIGNER Work Phone: 1([phone] [place], [place] [address]Pqnylvlveq26-59-8511 13:19-0500Heart rate65 /min Johnna Cedeño [employer] Work Phone: [facility] NorthCgjvqfymhx63-15-4221 13:19-0500Respiratory rate16 /minSjenny Cedeño [employer] Work Phone: [facility] NorthFocnfzccrk66-38-8537 13:19-1476UuJ0% (BldA) [Mass fraction]95 %Johnna Cedeño [employer] Work Phone: [facility] NorthOhgnjyfalg77-99-0589 13:19-0500Systolic blood mcbhhsok560 mm[Hg]Johnnajenny Cedeño [employer] Work Phone: [facility] NorthKwlavqiwrz46-52-1829 10:57-0500Body suhroe415.5 cmNicholas Brown DPM Work Phone: [phone] [place], [place] [address]Gcpwnvmdaw86-29-1802 10:57-0500Body mass index (BMI) [Ratio]31.46 kg/b3Ekicphyj Brown DPM Work Phone: [phone] [place], [place] [address]Ketjxcuejy68-54-5474 10:57-0500Body dyeslj61.02 kgNicholas Brown DPM Work Phone: [phone] [place], [place] [address]Bxqxxxfyut05-31-1137 10:57-0500Respiratory rate18 /minNicholas Brown DPM Work Phone: [facility] NorthPvnwjhzwki28-52-2085 09:25-0500Body .5 cmNicholas Brown DPM Work Phone: [phone] [place], [place] [address]Rgefejzhyn09-69-8759 09:25-0500Body mass index (BMI) [Ratio]31.46 kg/e6Zktadabn Brown DPM Work Phone: [phone] [place], [place] [address]Zgvxevefoq21-58-6202 09:25-0500Body jhibsp40.02 kgNicholas Brown DPM Work Phone: [phone] [place], [place] [address]Miiuvedgye15-74-7958 09:25-0500Respiratory rate18 /minNicholas Brown DPM Work Phone: [phone] [place], [place] [address]Xngxcysvlu35-90-8945 12:01-0500Diastolic blood vlebtkym06 mm[Hg]Trace Ramírez MD, PhDCVP Kuxmiqnwxd02-41-7926 12:01-0500 Systolic blood sshreydr771 mm[Hg]Trace Ramírez MD, PhDCVP Physicians 09-30-2024 09:46-0500Body eotyrn715.5 cmManjula Hemmer PA Work Phone: NOMercy [facility]-Bro[facility] HospitalNslfnseped08-40-2594 09:46-0500Body mass index (BMI) [Ratio]31.57 kg/a7Fvbja Hemmer PA Work Phone: NOMercy [facility]-Brooks HospitalGsvkixkhra97-21-7038 09:46-0500Body temperature 97.59 [degF]Manjula Hemmer PA Work Phone: [facility] NorthDmrbnkxezx95-39-7296 09:46-0500Body kvuzet99.29 kgMichaelen Hemmer PA Work Phone: NOMercy [facility] HospitalIgxcgylxpa72-33-6910 09:46-0500Diastolic blood nrvtakpt97 mm[Hg]Manjula Hemmer PA Work Phone: [facility] NorthGiziremjbs72-08-6798 09:46-0500Heart rate78 /min Manjula Hemmer PA Work Phone: [facility] NorthBsuupfcwvu71-35-7552 09:46-0500Respiratory rate16 /minMichaelen Hemmer PA Work Phone: [facility]OMer[facility] HospitalDbwasvwftw38-48-9124 09:46-4861AxO3% (BldA) [Mass fraction]97 %Manjula Hemmer PA Work Phone: [facility]OMer[facility] HospitalFprohegvus25-36-5517 09:46-0500Systolic blood veqatlfk846 mm[Hg]Manjula Hemmer PA Work Phone: [facility] HospitalJxejrkfjmf77-80-1884 09:21-0500Body tbvhri530.5 cmAlexis Gilmore DPM Work Phone: noMercy [facility] HospitalLyyyvfkkep71-87-9433 09:21-0500Body mass index (BMI) [Ratio]31.28 kg/x0FmjbqgarAlexis Gilmore DPM Work Phone: [facility] HospitalNxearbmbdg02-94-1560 09:21-0500Body igvkki83.56 kgPhilomenajose Gilmore DPM Work Phone: [facility] HospitalSwrefovxht79-95-8202 09:21-0500Respiratory rate18 /minPhilomenajose Gilmore DPM Work Phone: [facility] NorthQufgzxymqp39-34-9682 09:33-0500Body wurkqs794.5 cmSthomas Cedeño ROLLER COASTER DESIGNER Work Phone: [facility] NorthKxjohjiwdt78-05-4964 09:33-0500Body mass index (BMI) [Ratio]31.28 kg/v2DajpaqJohnna Cedeño ROLLER COASTER DESIGNER Work Phone: [facility] NorthWelkukqzcm72-79-8684 09:33-0500Body lwksqe12.56 kgJohnna Cedeño ROLLER COASTER DESIGNER Work Phone: [facility] NorthRaizzrafgl27-99-5853 09:33-0500Diastolic blood duvqltho01 mm[Hg]Johnna Cedeño ROLLER COASTER DESIGNER Work Phone: [facility] NorthZtujkniqtv31-13-7826 09:33-0500Heart rate72 /min Johnna Cedeño ROLLER COASTER DESIGNER Work Phone: [place] [address]Busdovssbo31-65-2135 09:33-4975GjL7% (BldA) [Mass fraction]96 %Johnna Cedeño ROLLER COASTER DESIGNER Work Phone: [facility] NorthZzzqkvcvlv61-92-9687 09:33-0500Systolic blood nbwtvebt705 mm[Hg]Johnna Cedeño ROLLER COASTER DESIGNER Work Phone: [facility] NorthVbjvoplyhh54-91-1048 16:14-0400Diastolic blood cmawehwl09 mm[Hg]Micheal Nova PRODUCT ADVISOR-SAXOPHONE TEACHER Work Phone: [facility]09-10-2024 16:14-0400 Systolic blood dlyicvte966 mm[Hg]Micheal Priceuria PRODUCT ADVISOR-SAXOPHONE TEACHER Work Phone: [facility]09-10-2024 16:10-0400 Body nxitii890.5 cmMicheal Priceuria PRODUCT ADVISOR-SAXOPHONE TEACHER Work Phone: [facility]09-10-2024 16:10-0400 Body mass index (BMI) [Ratio]29.63 kg/v0Dygjye Rohini PRODUCT ADVISOR-SAXOPHONE TEACHER Work Phone: [facility]09-10-2024 16:10-0400 Body afdsue34.48 kgMahadr Rohini PRODUCT ADVISOR-SAXOPHONE TEACHER Work Phone: [facility]09-10-2024 16:10-0400 Heart rate76 /minMahadr Rohini PRODUCT ADVISOR-SAXOPHONE TEACHER Work Phone: [facility]09-10-2024 16:10-0400 Respiratory rate18 /minMahadr Rohini PRODUCT ADVISOR-SAXOPHONE TEACHER Work Phone: [facility]08-30-2024 11:52-0400 Body ekotfr197.5 cmAlexis Gilmore DPM Work Phone: [facility] NorthPariabmoqb91-17-7245 11:52-0400Body mass index (BMI) [Ratio]29.45 kg/c9SdvmlamoAlexis Gilmore DPM Work Phone: [facility] NorthLbrapnfasi23-29-3915 11:52-0400Body blajnb66.03 kgAlexis Gilmore DPM Work Phone: [facility] NorthXvjthlxiyf73-10-6954 11:52-0400Diastolic blood mxdtjacj74 mm[Hg]Alexis Gilmore DPM Work Phone: [facility] NorthGmwtnllply92-60-9599 11:52-0400Heart rate78 /min Alexis Gilmore DPM Work Phone: [facility] NorthAdotqkdeak57-24-6880 11:52-0400Systolic blood gvwnmlqe485 mm[Hg]Alexis Gilmore DPM Work Phone: [facility] NorthVdbcecjgah76-15-8895 14:17-0400Diastolic blood acvujdsp87 mm[Hg]Trace Ramírez MD, PhDCVP Qksvoyflsl22-29-8188 14:17-0400 Systolic blood hsusmrua939 mm[Hg]Trace Ramírez MD, PhDCVP Physicians 06-22-2024 07:49-0400Body rmakkqysrmo95.9 [degF]Nely Curry MD Work Phone: [phone])[address]08-13-2024 07:49-0400 Diastolic blood hafosfnh33 mm[Hg]Nely Curry MD Work Phone: 1(216)[address] [place], [place] 2436308-13-2024 07:49-0400 Heart rate76 /Arsh Curry MD Work Phone: 1(216)[address] [place], [place] 2436308-13-2024 07:49-0400 Respiratory rate19 /Arsh Curry MD Work Phone: 1(216)[address] [place], [place] 2436308-13-2024 07:49-0400 SaO2% (BldA) [Mass fraction]91 %Nely Curry MD Work Phone: 1(216)[address] [place], [place] 2436308-13-2024 07:49-0400 Systolic blood zlpdjxre710 mm[Hg]Nely Curry MD Work Phone: 1(216)142-[address] [place], [place] 4902408-12-2024 17:12-0400 Body ozggbk275.5 Conor Curry MD Work Phone: 1([address]08-12-2024 17:12-0400 Body mass index (BMI) [Ratio]29.26 kg/w8LqkavNely Curry MD Work Phone: [address]08-12-2024 17:12-0400 Body awajfb65.58 kgNely Curry MD Work Phone: 1(216)1-[address] [place], [place] 4902408-06-2024 15:12-0400 Body akwksa145.5 cmMargareth Escamilla DO Work Phone: 1(797)543-[address] [place], [place] 4810908-06-2024 15:12-0400 Body mass index (BMI) [Ratio]30.18 kg/d8NxqzpMargareth Escamilla DO Work Phone: 1(056)2-[address] [place], [place] 4810908-06-2024 15:12-0400 Body .84 kgMehdi Shishehbor DO Work Phone: [facility]08-06-2024 15:12-0400 Diastolic blood adyyvqco76 mm[Hg]Margareth Shishehbor DO Work Phone: [facility]08-06-2024 15:12-0400 Heart rate91 /minMehdi Shishehbor DO Work Phone: [facility]08-06-2024 15:12-0400 Systolic blood njpktusl739 mm[Hg]Margareth Shishehbor DO Work Phone: [facility]07-10-2024 12:35-0400 Diastolic blood drthiolm20 mm[Hg]II Champ Bell Work Phone: 1(344)[address]07-10-2024 12:35-0400 Heart rate64 /HeathLucero Bell Work Phone: 1(802)[address]07-10-2024 12:35-0400 Respiratory rate16 /HeathLucero Bell Work Phone: 1(776)[address]07-10-2024 12:35-0400 SaO2% (BldA) [Mass fraction]96 %II Champ Bell Work Phone: 1(531)890-[address] [place], [place] 8757707-10-2024 12:35-0400 Systolic blood uoriaxoa016 mm[Hg]II Champ Bell Work Phone: 1(045)553-[address] [place], [place] 8757707-10-2024 10:00-0400 Inhaled oxygen flow rate2 L/HeathLucero Bell Work Phone: 1(154)[address]07-10-2024 08:33-0400 Body adxfmd972.48 cmII Champ Bell Work Phone: 1(902)816-[address] [place], [place] 8757707-10-2024 08:33-0400 Body anxwda66.84 kgII Champ Bell Work Phone: 1(627)998-[address] [place], [place] 8757707-09-2024 10:46-0400 Body dgarzu810.48 cmII Champ Bell Work Phone: [facility]07-09-2024 10:46-0400 Body mass index (BMI) [Ratio]29.6 kg/m2II Champ Bell Work Phone: [facility]07-09-2024 10:46-0400 Body rhfsyfuoulj13.6 [degF]II Champ Bell Work Phone: [facility]07-09-2024 10:46-0400 Body pcsyad72.48 kgII Champ Bell Work Phone: 1(930)793-[address] [place], [place] 7952107-09-2024 10:46-0400 Diastolic blood llyvgwmj75 mm[Hg]II Champ Bell Work Phone: 1(878)699-[address] [place], [place] 7952107-09-2024 10:46-0400 Heart rate63 /minII Champ Bell Work Phone: 1(937)156-[address] [place], [place] 7952107-09-2024 10:46-0400 SaO2% (BldA) [Mass fraction]96 %II Champ Bell Work Phone: [facility]07-09-2024 10:46-0400 Systolic blood frdwamky893 mm[Hg]II Champ Bell Work Phone: [facility]02-01-2024 16:15-0500 Body bmxboz915.5 cmAlexis Dillon DPM Work Phone: [facility] NorthZxseouqvtw06-71-5865 16:15-0500Body mass index (BMI) [Ratio]29.26 kg/p7VkvjyqkgAlexis Gilmore DPM Work Phone: [facility] NorthEwvcspndtp54-54-4981 16:15-0500Body .58 kgAlexis Gilmore DPM Work Phone: [facility] NorthTsgxkbcutq95-72-4867 16:15-0500Diastolic blood xmfeejfs52 mm[Hg]Alexis Gilmore DPM Work Phone: [facility] NorthOnsweshjnl19-65-3584 16:15-0500Heart rate77 /min Alexis Gilmore DPM Work Phone: noMercy [facility] HospitalLpbwnhnqgv73-10-6125 16:15-0500Systolic blood jgaesnad874 mm[Hg]Alexis Gilmore DPM Work Phone: noMercy [facility]-Bro[facility] HospitalOklvpvwlbr06-00-2556 10:30-0400Body kcuskm988.48 cmSabrina Borden Other [facility] Other 04-12-2023 10:30-0400Body mass index (BMI) [Ratio] 28.35 kg/z1UfjqwzSabrina Borden Other [facility] Other 04-12-2023 10:30-0400Body vxdmuwgewql90.8 [degF]Sabrina Borden Other [facility] Other 04-12-2023 10:30-0400Body bmeqsy81.31 kgSabrina Borden Other [facility] Other 04-12-2023 10:30-0400Diastolic blood lzaemims65 mm[Hg] Sabrina Borden Other [facility] Other 04-12-2023 10:30-1603ZpG5% (BldA) [Mass fraction]95 % Sabrina Borden Other [facility] Other 04-12-2023 10:30-0400Systolic blood mm[Hg] Sabrina Borden Other [facility] Other 03-06-2023 16:30-0500Diastolic blood toxlnnwq92 mm[Hg] II Champ Bell Work Phone: 1(419)483-[address] [place], [place] 8757703-06-2023 16:30-0500 Heart rate63 /Ky Bell Work Phone: 1(940)546-[address] [place], [place] 8757703-06-2023 16:30-0500 Respiratory rate16 /Ky Bell Work Phone: 1(517)329-[address] [place], [place] 8757703-06-2023 16:30-0500 SaO2% (BldA) [Mass fraction]95 %II Champ Bell Work Phone: 1(933)418-[address] [place], [place] 8757703-06-2023 16:30-0500 Systolic blood rsfdevka906 mm[Hg]II Champ Bell Work Phone: 1(582)847-[address] [place], [place] 8757703-06-2023 14:00-0500 Inhaled oxygen flow rate2 L/Ky Bell Work Phone: 1(574)028-[address] [place], [place] 8757703-06-2023 11:42-0500 Body spkdyj917.48 cmII Champ Bell Work Phone: 1(754)448-[address] [place], [place] 8757703-06-2023 11:42-0500 Body kgziqg47.49 kgII Champ Bell Work Phone: 1(022)455-[address] [place], [place] 8757703-02-2023 08:30-0500 Body zwwpta143.48 cmMabrianne Mathew Other [facility] Other 03-02-2023 08:30-0500Body mass index (BMI) [Ratio] 28.35 kg/r1CjcgksyGeo Mathew Other [facility] Other 03-02-2023 08:30-0500Body tnlvkzomrmh57.8 [degF] Geo Mathew Other [facility] Other 03-02-2023 08:30-0500Body .31 kgMattarash Mathew Other [facility] Other 03-02-2023 08:30-0500Diastolic blood pgfuwabe90 mm[Hg] Geo Mathew Other [facility] Other 03-02-2023 08:30-3215TgV5% (BldA) [Mass fraction]95 % Geo Mathew Other [facility] Other 03-02-2023 08:30-0500Systolic blood ujycgeej268 mm[Hg] Geo Mathew Other [facility] Other 11-11-2021 13:00-0500Body mmhbiy297.48 cmMattarash Mathew Other [facility] Other 11-11-2021 13:00-0500Body mass index (BMI) [Ratio] 31.09 kg/d4HyawucuGeo Mathew Other [facility] Other 11-11-2021 13:00-0500Body uiahfs24.11 kgMattarash Mathew Other [facility] Other 11-11-2021 13:00-0500Diastolic blood qjawsukp82 mm[Hg] Geo Mathew Other [facility] Other 11-11-2021 13:00-0500Systolic blood itzurhgc729 mm[Hg] Geo Mathew Other [facility] Other Encounters Encounter DateEncounter TypeCare ProviderFacilityStart: 09-20-2025 End: 68-63-3501Kbtril flowsShayne Cedeño ROLLER COASTER DESIGNER Work Phone: NOUL [facility] Clark MedinceStart: 09-20-2025 End: 29-76-2218Gnupfd Stacy Cedeño ROLLER COASTER DESIGNER Work Phone: NOMS [facility] Clark MedinceStart: 09-20-2025 End: 81-66-7363Jgpdwa outpatient visit 25 minutesJohnna Cedeño ROLLER COASTER DESIGNER Work Phone: noms [facility] Clark MedinceComment on above:Acute non- recurrent pansinusitis (Primary Dx)Start: 09-20-2025 End: 83-65-6323cxwcfaiyufTTXRFW M SHIVELYNot AvailableStart: 09-15-2025 End: 63-24-1887Swzvkx outpatient visit 15 minutesAlexis Gilmore DPM Work Phone: noms CI PODIATRYComment on above:Achilles tendinitis, right leg (Primary Dx); Contracture of right ankle; Type 2 diabetes mellitus with hyperglycemia, with long-term current use of insulin (HCC); Pain due to onychomycosis of toenails of both feetStart: 09-15-2025 End: 31-63-4968fysqjyioifCDMRPHIS A BROWNNot AvailableStart: 09-15-2025 End: 62-56-7783Djvpnc Edgar Gilmore DPM Work Phone: noms CI PODIATRYStart: 09-15-2025 End: 98-11-4393Qjarku Edgar Gilmore DPM Work Phone: noms CI PODIATRYStart: 08-47-2268lwpypqwzklNmshchLakeview Hospitaltart: 08-24-2025 End: 23-28-9517Dnhsbi Stacy Cedeño ROLLER COASTER DESIGNER Work Phone: NOMS [facility] Clark MedinceStart: 08-24-2025 End: 20-31-1667Oeoslo Stacy Cedeño ROLLER COASTER DESIGNER Work Phone: NOMS [facility] Clark MedinceStart: 08-24-2025 End: 50-72-8168Jaksvp outpatient visit 25 minutesJohnna Cedeño ROLLER COASTER DESIGNER Work Phone: noms [facility] CentereComment on above:Abnormal breast exam (Primary Dx); Encounter for screening mammogram for malignant neoplasm of breast; Type 2 diabetes mellitus with diabetic chronic kidney disease (HCC); Chronic kidney disease, stage 3b ([facility]-HCC); Acute non-recurrent pansinusitisStart: 08-24-2025 End: 89-63-5772ahkcjfmvnrQAWCJN M SHIVELYNot AvailableStart: 08-12-2025 End: 43-94-4038Wxnfzf outpatient visit 25 minutesAgustin Phamweiki Work Phone: [employer] [place]edoStart: 78-06-4245nslpaxjtwxWjnkgq Al Shweiki [facility] InstituteStart: 68-47-9300yegmxruztbAepjui Al ShweikiLebanon Eye InstituteStart: 07-28-2025 End: 36-48-9095Iiiuud outpatient visit 25 minutesSaneeru Brock Shweiki Work Phone: [employer] [place]edoStart: 04-98-0430pobytxmhdoKhziwm Al ShweKettering Health Troy InstituteStart: 07-27-2025 End: 25-83-2321Oqgdez follow up visit related to original Alexandru Gilmore DPM Work Phone: noms [facility] Espinoza PodiatryComment on above: Contracture of right ankle (Primary Dx); Achilles tendinitis, right leg; Type 2 diabetes mellitus with hyperglycemia, with long-term current use of insulin ([facility])Start: 07-27-2025 End: 11-67-3102ntlybtgntnIKKHASPL A BROWNNot AvailableStart: 07-27-2025 End: 19-57-6684Fuzysj Edgar Gilmore DPM Work Phone: noms [facility] Espinoza PodiatryStart: 07-27-2025 End: 50-27-4337Gvahmn Edgar Gilmore DPM Work Phone: noms [facility] Espinoza PodiatryStart: 07-22-2025 End: 69-00-2042Ercdpktf Result EncounterAlexis Gilmore DPM Work Phone: noms External Department UnsolicitedStart: 07-22-2025 End: 13-45-5756Dpjlrkob Result EncounterAlexis Gilmore DPM Work Phone: noms External Department UnsolicitedStart: 07-22-2025 End: 96-95-0010Oasbwpohl to same day surgery ethelAlexis Gilmore DPM-[facility]Start: 07-22-2025 End: 84-47-5133durqjubdnlGlwyut Berry II Work Phone: [facility] Work Phone: Start: 07-20-2025 End: 79-32-7736Nxkolh Stacy Cedeño ROLLER COASTER DESIGNER Work Phone: noms [facility] MedinceStart: 07-20-2025 End: 74-97-8179Sqkeqyrohan Cedeño ROLLER COASTER DESIGNER Work Phone: noms [facility] MedinceStart: 07-20-2025 End: 96-95-1764Wrmepu outpatient visit 25 minutesJohnna Cedeño ROLLER COASTER DESIGNER Work Phone: noms Mo[facility] Family MedinceComment on [...] single episode, in full remissionStart: 07-20-2025 End: 59-75-3151Vetwiuftoczz Masood Cedeño ROLLER COASTER DESIGNER Work Phone: [facility] Work Phone: Start: 07-20-2025 End: 23-11-5057brfewgdbekGUPDAJ M SHIVELYNot AvailableStart: 07-19-2025 End: 60-96-2223Nkrhbcxj Result EncounterNicholjose Gilmore DPM Work Phone: noms External Department UnsolicitedStart: 07-19-2025 End: 58-48-5120Iqslwsrf Result EncounterPhilomenajose Gilmore DPM Work Phone: noms External Department UnsolicitedStart: 07-19-2025 End: 17-45-9368Vytzoan encounter procedureAlexis Gilmore XDA-Erm-Rdrsempw Testing Work Phone: Start: 07-19-2025 End: 67-85-7930fvbzvbrykyZfwxug Bell II Work Phone: [facility] Work Phone: Start: 73-00-7875Ibwqelarg for preprocedural laboratory examinationAlexis Gant [facility]ly [facility] Physician GroupStart: 07-18-2025 End: 00-51-2941iioxxqvlabYEBXVLLW A BROWNNot AvailableStart: 07-18-2025 End: 21-85-1374Lgrtbw outpatient visit 25 minutesAlexis Berry Dillon DPM Work Phone: noms Ivy Espinoza PodiatryComment on above: Contracture of right ankle (Primary Dx); Achilles tendinitis, right leg; Diabetes mellitus due to underlying condition with diabetic polyneuropathy, unspecified whether longterm insulin use (HCC)Start: 57-93-9626ihqmriotxw Trace [facility] Eye InstituteStart: 07-12-2025 End: 74-36-5093Memhwp Vincent Delcid DO Work Phone: [facility] EyeStart: 07-12-2025 End: 30-18-3735Bhkmpy Vincent Delcid DO Work Phone: [facility] EyeStart: 07-12-2025 End: 86-36-4196hdqrhfqzjsJFVGKSMH D ZAHLERNot AvailableStart: 06-20-2025 End: 70-15-7509Kbjxrw follow up visit related to original Marcus Fox MD Work Phone: noms [facility] AssociatesComment on above:History of colon polyps (Primary Dx); Upper abdominal pain; Iron deficiency anemia, unspecified iron deficiency anemia type; Chronic anticoagulation; Other chronic gastritis without hemorrhageStart: 06-20-2025 End: 44-58-0837hqpnidtpxiSISVZK VARGAS VNot AvailableStart: 06-16-2025 End: 07-16-1443Mtuiua outpatient visit 15 minutesAlexis Gilmore DPM Work Phone: noms CI PODIATRYComment on above:Achilles tendinitis, right leg (Primary Dx); Contracture of right ankle; Diabetes mellitus due to underlying condition with diabetic polyneuropathy, unspecified whether long term care administrator insulin use (HCC); Pain due to onychomycosis of toenails of both feetStart: 06-16-2025 End: 84-24-8378xqxaynhopdKWEVWIWL A BROWNNot AvailableStart: 06-16-2025 End: 71-64-9809Hvycud Edgar Gilmore DPM Work Phone: noms CI PODIATRYStart: 06-16-2025 End: 70-21-9255Byoovnping Gilmore DPM Work Phone: noms CI PODIATRYStart: 06-09-2025 End: 37-11-8643Wrdnprhx Result Fatemeh Fox MD Work Phone: noms External Department UnsolicitedStart: 06-09-2025 End: 00-75-1731Ybvjubmb Result Fatemeh Cronin MD Work Phone: noms External Department UnsolicitedStart: 06-09-2025 End: 26-47-0530Rgfowagew to same day surgery Byron Fox [facility]Start: 06-09-2025 End: 39-64-6374komcbeqsucEbmltc Berry II Work Phone: [facility] Work Phone: Start: 05-30-2025 End: 66-41-8224olrlwoejzaKCDKAQOhioHealth [facility] Start: 05-30-2025 End: 69-34-3756Gosbegplv for preprocedural cardiovascular examinationGEORLutheran Hospitaltart: 05-25-2025 End: 70-23-2394Orkovl outpatient new 45 minutesDale Fox MD Work Phone: noms ST GENSComment on above:Iron deficiency anemia, unspecified iron deficiency anemia type (Primary Dx); History of colon polyps; Upper abdominal pain; Screening for colon cancer; Chronic anticoagulationStart: 05-25-2025 End: 67-72-8489hrswgxbkizHTCEXP VARGAS VNot AvailableStart: 05-09-2025 End: 16-71-7942Ugzkxzvinm Reny Mckinley MD Work Phone: Referring PhysicianComment on above:Iron deficiency anemia, unspecified iron deficiency anemia type (Primary Dx)Start: 04-29-2025 End: 62-45-4998onoomhqlodHQDA ALEYDADUfabioUC Healthtart: 04-26-2025 End: 47-68-7377tpshtpuxpqDOEEJPSOAL E MALENFCincinnati Children's Hospital Medical Centertart: 04-14-2025 End: 57-75-1263Vwjnxa Stacy Cedeño ROLLER COASTER DESIGNER Work Phone: NOMS CI FMStart: 04-14-2025 End: 98-96-4415Wufikc flowsShayne Cedeño ROLLER COASTER DESIGNER Work Phone: NOMS CI FMStart: 04-14-2025 End: 23-60-5684Zzaer of hemosiderin, quantShjozef Cedeño ROLLER COASTER DESIGNER Work Phone: NOMS HealthcareStart: 04-14-2025 End: 76-89-5972Eputsyl encounter procedureSthomas Cedeño ROLLER COASTER DESIGNER Work Phone: NOMS CI FMComment on above:Medicare annual wellness visit, subsequent (Primary Dx); 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 (CMS/HCC); Benign essential hypertension (CMS/HCC); Diverticulosis of colon; Generalized anxiety disorder ([facility]); Irritable bowel syndrome with both constipation and diarrhea; Mixed hyperlipidemia ([facility]); Paroxysmal atrial fibrillation ([facility]); Peripheral vascular disease ([facility]); Polyneuropathy due to type 2 diabetes mellitus ([facility]); Poorly controlled diabetes mellitus ([facility]); 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 associated with type 2 diabetes mellitus ([facility]); Type 2 diabetes mellitus with hyperglycemia, with long-term current use of insulin ([facility]); Osteopenia, unspecified location; Asthma without status asthmaticus without complication, unspecified asthma severity, unspecified whether persistent ([facility]); Arteriosclerosis of arterial coronary artery bypass graft ([facility]); Estrogen deficiency; Chronic migraine with aura without status migrainosus, not intractable ([facility]); Overweight; 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 ([facility]); 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, with long-term current use of insulin, unspecified retinopathy severity ([facility]); Bilateral carotid artery stenosis; New onset of congestive heart failure ([facility]); NSTEMI (non-ST elevated myocardial infarction) ([facility]); Screening for thyroid disorder; Routine general medical examination at health care facility; Screening for colon cancerStart: 04-14-2025 End: 91-04-9566hsicwadodqYNNWFPAmelia Abbott AvailableStart: 03-30-2025 End: 40-38-1789Cgoagn outpatient visit 15 minutesAlexis Gilmore DPM Work Phone: NOMS AL PODComment on above:Contracture of right ankle (Primary Dx); Achilles tendinitis, right leg; Diabetes mellitus due to underlying condition with diabetic polyneuropathy, unspecified whether longterm insulin use ([facility]); Pain due to onychomycosis of toenails of both feetStart: 03-30-2025 End: 84-07-2429holtifgdsuQVDFYBBV A BROWNNot AvailableStart: 03-30-2025 End: 50-29-3282Yxrmkc flowsheetAlexis Gilmore DPM Work Phone: NOMS [place] PODStart: 03-30-2025 End: 45-43-6565Bjdpqr flowsheetAlexis Gilmore DPM Work Phone: noms AL PODStart: 03-10-2025 End: 30-46-0532Bbqornk encounter procedureChamp Bell II Work Phone: [facility] Work Phone: Start: 03-10-2025 End: 15-53-1871oxtfyvyfdiNrrpce Bell II Work Phone: [facility] Work Phone: Start: 03-03-2025 End: 84-30-8339Efplxiujb Result EncounterChamp Bell MD Work Phone: noms External Department UnsolicitedStart: 03-03-2025 End: 45-54-3029Zusjafeis Result EncounterChamp Bell MD Work Phone: noms External Department UnsolicitedStart: 03-02-2025 ambulatoryGEORGE Protestant Hospitaltart: 03-01-2025 End: [id number] outpatient visit 15 minutesJohnna Cedeño [employer] Work Phone: noms CI FMComment on above:Encounter for screening mammogram for breast cancer (Primary Dx); Type 2 diabetes mellitus with hyperglycemia, with long-term current use of insulin (CMS/HCC); Rheumatoid arthritis, unspecified; Vitreous hemorrhage, left eye (CMS/HCC); Vitreous hemorrhage, right eye (CMS/HCC); Atherosclerosis of quinault arteries of right leg with ulceration of thigh (CMS/HCC)Start: 03-01-2025 End: [id number] M SHIVELYNot AvailableStart: 02-21-2025 Evaluation and management of inpatientMUHAMM[place] [facility]: [id number] and management of inpatientBANNER [facility]I Magruder [facility]: 02-18-2025 End: 69-86-3637Hbfookqwu Result EncounterGeneric External Data ProviderNOMS External Department UnsolicitedStart: 02-18-2025 End: 90-05-5676Pzlfozusj Result EncounterGeneric External Data ProviderNOMS External Department UnsolicitedStart: 61-06-5926Ftacnbidxu and management of inpatientANDREW JETKeenan Private Hospitaltart: 02-18-2025 End: 49-88-9858Ylnsxdnqmf and management of inpatientJEFFERY KATKOMansfield Hospitaltart: 02-15-2025 End: 91-37-5739nhahvjrmyrCfnsmuqmy E DoamekporFacility:[facility] Hospitaltart: 02-15-2025 End: 84-39-6589Kkvpbgteez and management of inpatientChamp Bell II Work Phone: [facility] [place] [facility] Work Phone: Start: 02-15-2025 End: 45-16-7083gilptvxvugt encounterDakathi Bell II Work Phone: [facility] Work Phone: Start: 02-15-2025 End: 98-51-2659Yjucuv flowsJd Delcid DO Work Phone: noms NB OPHTStart: 02-15-2025 End: 72-30-8729Untwml flowsheetTeena Delcid DO Work Phone: noms NB OPHTStart: 02-15-2025 End: 89-14-3661dgbuvlkcgkQMFAKNTQ D ZAHLERNot AvailableStart: 02-03-2025 End: 35-35-5757AvourcPrkflz B Berry MD Work Phone: noms POPULATION HEALTHComment on above:Type 2 diabetes mellitus with hyperglycemia, with long-term current use of insulin ([facility]) Start: 01-05-2025 End: 85-56-8727Rtyqlsytk identifierTrace Ramírez Work Phone: [facility] [place]Start: 01-05-2025 End: 69-83-3630Kisrmoc R Petersen Work Phone: [facility] [place]edoStart: 15-61-3969uzggbyfxgiQmzzifk Charleen MelchorenCincinnatlucero Eye InstituteStart: 12-30-2024 End: 82-27-8092Uqnfqq Edgar Gilmore DPM Work Phone: noMS CI PODIATRYStart: 12-30-2024 End: 55-97-6797Hqydll Edgar Gilmore DPM Work Phone: noms CI PODIATRYStart: 12-30-2024 End: 00-45-4327Bdjhzq outpatient visit 25 minutesJohnna Cedeño NP Work Phone: NOMS CI FMComment on above:Paroxysmal atrial fibrillation (CMS/HCC) (Primary Dx); Benign essential hypertension (CMS/HCC); Type 2 diabetes mellitus with hyperglycemia, with long-term current use of insulin (CMS/HCC); 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 (CMS/HCC); S/P CABG x 4; Encounter for screening mammogram for malignant neoplasm of breast; Type 2 diabetes mellitus with foot ulcer (CODE) (CMS/HCC); Non-pressure chronic ulcer of other part of left foot with fat layer exposed (CMS/HCC)Start: 12-30-2024 End: 03-64-3582sxhaukzwgqUBBIXUAmelia Abbott AvailableStart: 12-30-2024 End: 01-24-6464Bwjzhf outpatient visit 15 minutesAlexis Gilmore DPM Work Phone: NOMS CI PODIATRYComment on above:Heel spur, right (Primary Dx); Achilles tendinitis, right leg; Contracture of right ankleStart: 12-30-2024 End: 85-48-4393xhtyrebpwuXIDJGPMB A BROWNNot AvailableStart: 12-20-2024 End: 53-25-7671krzyfyenntSEGYST [facility] Start: 12-18-2024 End: 38-57-6329Icetwotqs Result EncounterGeneric External Data ProviderNOMS External Department UnsolicitedStart: 12-18-2024 End: 69-30-0379Gyeorknnb Result EncounterGeneric External Data ProviderNOMS External Department UnsolicitedStart: 12-09-2024 End: 20-29-7717Jolojf Edgar Berry Dillon DPM Work Phone: noms CI PODIATRYStart: 12-09-2024 End: 26-11-6491Dshmwk antelmofrantzGalileojessica Berry Dillon DPM Work Phone: noms CI PODIATRYStart: 12-09-2024 End: 18-63-6079sboydtnbecWJKFDQFJ A BROWNNot AvailableStart: 12-09-2024 End: 30-70-7315Scbhbj outpatient visit 15 minutesNicjessica Gilmore DPM Work Phone: noms CI PODIATRYComment on above:Heel spur, right (Primary Dx); Diabetes mellitus due to underlying condition with diabetic polyneuropathy, unspecified whether longterm insulin use ([facility]); Pain due to onychomycosis of toenails of both feet; Onychomycosis; PVD (peripheral vascular disease) ([facility]); Achilles tendinitis, right leg; Contracture of right ankleStart: 10-21-2024 End: 69-18-0260Fsbqpl outpatient visit 25 minutesTrace Ramírez Work Phone: [facility] [place]edoStart: 08-07-1077lhfbfxmyrtIyrddhsJeanie Jaramillo Eye InstituteStart: 10-15-2024 End: 45-87-3435Umoqqf flowsJd Delcid DO Work Phone: NOFC NB OPHTStart: 10-15-2024 End: 26-17-4502Wvgalj flowsJd Delcid DO Work Phone: NOIY NB OPHTStart: 10-15-2024 End: 63-77-2478Vylods follow up visit related to original Valentín Delcid DO Work Phone: noms NB OPHTComment on above:Pseudophakia (Primary Dx) Start: 10-15-2024 End: 47-78-3588xiuinhfjedDJEKJDGSTete Jacob AvailableStart: 09-30-2024 End: 46-98-8680Dhgpzh Edgar Gilmore DPM Work Phone: NOMS CI PODIATRYStart: 09-30-2024 End: 71-89-5919Knlvbw Edgar Gilmore DPM Work Phone: NOMS CI PODIATRYStart: 09-30-2024 End: 64-00-9790Dmnaxb outpatient visit 15 Irma CUEVAS Work Phone: NOMS CI FMComment on above:Acute asthmatic bronchitis (CMS/HCC) (Primary Dx); Need for vaccination; Hypotension, unspecified hypotension typeStart: 09-30-2024 End: 26-26-3287Uzecjd outpatient visit 10 Chanell Gilmore DPM Work Phone: noMS CI PODIATRYComment on above:Dry gangrene (CMS/HCC) (Primary Dx); PVD (peripheral vascular disease) (CMS/HCC); Diabetes mellitus due to underlying condition with diabetic polyneuropathy, unspecified whether longterm insulin use (CMS/HCC); Pain due to onychomycosis of toenails of both feetStart: 09-30-2024 End: 79-87-2559mdakevagntOQGLOLizz Woodward AvailableStart: 09-22-2024 End: 39-88-8211Nyicnu outpatient visit 25 minutesJohnna Cedeño NP Work Phone: NOMS CI FMComment on above:Acute asthmatic bronchitis (CMS/HCC) (Primary Dx); Type 2 diabetes mellitus with hyperglycemia, with long-term current use of insulin (CMS/HCC); Polyneuropathy due to type 2 diabetes mellitus (CMS/HCC); Acute coughStart: 09-22-2024 End: 44-66-4281hctmtofpwaPSENFRAmelia Abbott AvailableStart: 09-17-2024 End: 56-16-4854Dlbefi flowsheetJonathan D Lianaer DO Work Phone: noms NB OPHTStart: 09-17-2024 End: 37-67-3571Chkjmu flowsheetJonathan Ml Estradahler DO Work Phone: NOJI NB OPHTStart: 09-17-2024 End: 63-00-2232Laqyzu follow up visit related to original pxJonathan D Nataliehler DO Work Phone: NOMS NB OPHTComment on above:Pseudophakia (Primary Dx) Start: 09-07-2024 End: 10-53-8412Brwopr flowsheetJonathan D Nataliehler DO Work Phone: NOUS NB OPHTStart: 09-07-2024 End: 90-17-0417Lykfbo flowsheetJonathan Ml Estradahler DO Work Phone: NOHA NB OPHTStart: 09-07-2024 End: 42-50-7477Pzipho follow up visit related to original pxJonathan D Lianaer DO Work Phone: NOSZ NB OPHTComment on above:Pseudophakia (Primary Dx) Start: 08-31-2024 End: 93-94-8680Yozspx flowsheetJonathan D Lianaer DO Work Phone: NOGO NB OPHTStart: 08-31-2024 End: 76-41-1500Abeslu flowsheetJonathan D Nataliehler DO Work Phone: NOSE NB OPHTStart: 08-31-2024 End: 87-17-1666Odhera follow up visit related to original pxJonathan D Lianaer DO Work Phone: NOMS NB OPHTComment on above:Pseudophakia (Primary Dx); Cataract mature, total senileStart: 08-24-2024 End: 57-16-1576Wfbykd flowsheetJonathan D Nataliehler DO Work Phone: NOMS NB OPHTStart: 08-24-2024 End: 05-92-1255Buamwp flowsheetTeena Gaineser DO Work Phone: noms OPHTStart: 08-24-2024 End: 73-96-0552Oimjuz follow up visit related to original Valentín Delcid DO Work Phone: noms OPHTComment on above:Pseudophakia (Primary Dx) Start: 08-18-2024 End: 09-34-7168urwiyxraprKEDEBALLicking Memorial Hospitaltart: 08-04-2024 End: 71-54-9112Fbzhxmwmc identifierTrace Ramírez Work Phone: [facility] CenteredoStart: 08-04-2024 End: 13-02-5113NakrxqrTrace Ramírez Work Phone: RVN [facility] CenteredoStart: 07-20-2024 End: 67-10-1074sqoxzyfulyAFGCIMohawk Valley Health System AmbulatoryStart: 07-20-2024 End: 15-61-0622Orwtma outpatient visit 25 minutesMamargot SORIA Work Phone: [facility] MatherComment on above:S/P peripheral artery angioplasty (Primary Dx); PAD (peripheral artery disease) ([facility])Start: 07-20-2024 End: 52-71-7539Tqiknrzhuf hospital visit by physician[address] MatherComment on above:PAD (peripheral artery disease) ([facility]); S/P peripheral artery angioplastyStart: 07-20-2024 End: 27-94-6826pcmlejuqasAQKUZSt. Francis Hospitaltart: 07-13-2024 End: 87-24-2835Kuffqe flowsheetTeena Gaineser DO Work Phone: noms OPHTStart: 07-13-2024 End: 09-02-1983Bzzjnl flowsheetTeena Delcid DO Work Phone: noms ELSIE OPHTStart: 07-13-2024 End: 99-78-9670Covznt outpatient visit 25 minutesTeena Delcid DO Work Phone: noms ELSIE OPHTComment on above:Cataract mature, total senile (Primary Dx)Start: 07-09-2024 End: 66-04-8126Xgrtpf flowsheetNicholas Berry Brown DPM Work Phone: noMS AL PODStart: 07-09-2024 End: 62-86-5936Anaadx flowsheetNicholas A Brown DPM Work Phone: noms AL PODStart: 07-09-2024 End: 48-30-1276Benxpg outpatient visit 15 minutesNicjessica Smart Brown DPM Work Phone: noms AL PODComment on above:Dry gangrene (CMS/HCC) (Primary Dx); PVD (peripheral vascular disease) (CMS/HCC); Diabetes mellitus due to underlying condition with diabetic polyneuropathy, unspecified whether long term care administrator insulin use (CMS/HCC); Onychomycosis; Toe pain, bilateralStart: 06-30-2024 End: 66-95-4721Wkeufcfoh identifierTrace Ramírez Work Phone: [facility] [place]Start: 06-30-2024 End: 85-90-1360WkwiozhTrace Ramírez Work Phone: [facility] [place]Start: 06-21-2024 End: 49-14-4514Becdedewh Result EncounterGeneric External Data ProviderNOMS External Department UnsolicitedStart: 06-21-2024 End: 35-43-3527Qzihhctou Result EncounterGeneric External Data ProviderNOMS External Department UnsolicitedStart: 06-21-2024 End: 30-40-9672Pzxfspxaeh hospital visit by Cuba Curry MD Work Phone: uh [facility] 7Comment on above:S/P peripheral artery angioplasty (Primary Dx); PAD (peripheral artery disease) ([facility]); Atherosclerosis of quinault arteries of extremities with intermittent claudication, left leg (CMS-HCC); Atherosclerosis of quinault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 with ulceration of other part of foot (Multi); Acute painStart: 06-15-2024 End: 98-88-2236munvmuunvrNPDO [facility]tart: 06-15-2024 End: 60-88-3063Wdhiyw outpatient new 60 minutesJames [facility]. [facility] DO Work Phone: [facility] MatherComment on above:PAD (peripheral artery disease) ([facility]) (Primary Dx); Anemia, unspecified typeStart: 06-15-2024 End: 30-58-0987Esyybuahl Result EncounterGeneric External Data ProviderNOMS External Department UnsolicitedStart: 06-15-2024 End: 46-65-0410Uskzyyimi Result EncounterGeneric External Data ProviderNOMS External Department UnsolicitedStart: 06-15-2024 End: 71-12-0140rkxbbyaabyERYJZMohawk Valley Health System AmbulatoryStart: 06-15-2024 End: 41-41-8187spetsjstkhVWNSFJ [facility]: 05-27-2024 End: 55-02-9024lynllzwadcGW Champ Bell Work Phone: [facility] Work Phone: Start: 05-27-2024 End: 14-66-6628Acdskro encounter procedureII Champ Bell Work Phone: [facility]-Ultrasound [place] Work Phone: Start: 78-85-2151Xou-patient / Non-visitII Champ Bell Work Phone: [facility] Vascular Surgery Work Phone: Start: 05-19-2024 End: 29-51-1566Wdspggfow to same day surgery centerII Champ Bell Work Phone: [facility]-Interventional Radiology Work Phone: Start: 05-19-2024 End: 82-03-6187augsljbfjnLT Champ Bell Work Phone: [facility] Work Phone: Start: 05-18-2024 End: 52-09-0637Ulasfdo encounter procedureII Champ Bell Work Phone: [facility] Vascular Surgery Work Phone: Start: 05-17-2024 End: 13-05-0892lxeyzvliksMX Champ Bell Work Phone: [facility] Work Phone: Start: 05-17-2024 End: 26-41-2471Crrthxg encounter procedureII Champ Bell Work Phone: [facility]-Ultrasound [facility] [place] Work Phone: Start: 05-06-2024 End: 44-92-9159Ymbabs outpatient visit 25 minutesMicnolan Ramírez Work Phone: [facility] [place]Start: 12-11-2023 End: 26-74-3398Ytwgbv outpatient visit 15 minutesAlexis Gilmore DPM Work Phone: NOBR CI PODIATRYComment on above:Diabetes mellitus due to underlying condition with diabetic polyneuropathy, unspecified whether long term care administrator insulin use ([facility]) (Primary Dx); PVD (peripheral vascular disease) ([facility]); Dry gangrene ([facility]); Foot ulcer, left, with fat layer exposed ([facility])Start: 12-03-2023 End: 40-98-2401Uawjgsdsa Result EncounterGeneric External Data ProviderNOMS External Department UnsolicitedStart: 12-03-2023 End: 25-59-6564Exbqbdqzy Result EncounterGeneric External Data ProviderNOMS External Department UnsolicitedStart: 02-19-2023 End: 89-45-0853Thqojpb encounter procedureSabrina Bermudez Vascular Surgery Start: 02-19-2023 End: 69-25-3577pdivnkrunoLX Champ Bell Work Phone: [employer] Other Start: 01-31-2023 End: 47-45-6470eabxzzlqwcTB CHAMP BELLFacility:F7Hqnni: 01-13-2023 End: 08-42-4919Yspsahims to same day surgery centerII Champ Bell Work Phone: [facility]-Interventional Radiology Work Phone: Start: 01-13-2023 End: 42-25-8586inmczeqrerLM Champ Bell Work Phone: [facility] Work Phone: Start: 01-09-2023 End: 19-62-6922cdylqrrknoRvkoosj [place] Other [employer] Other Start: 48-23-5635Aehbqz outpatient new 60 minutes Geo Manuel Vascular SurgeryStart: 12-30-2022 End: 68-78-6196zhptsseeyzTMDYMHVQ BROWNFacility:R8Gbrwu: 83-66-0105efbwayzatkSJ DOCTOR MISCFacility:X2Fqnsj: 10-18-2022 End: 76-40-4330Oodyie follow up visit related to original Steph Ramírez MD, PhDCVP PhysiciansStart: 10-18-2022 End: 36-37-8281Rbnskfawn identifierAhmed M Alkaliby Work Phone: [facility] [place]Start: 10-18-2022 End: 65-33-7681Nrvob M Alkaliby Work Phone: [facility] [place]Start: 10-17-2022 End: 39-50-5065Fhbziwofb identifierAhmed M Alkaliby Work Phone: [facility]urgiCareStart: 10-17-2022 End: 49-88-6442Jlodh M Alkaliby Work Phone: SurgiCareStart: 10-14-2022 End: 16-05-6957Fbflid outpatient visit 25 minutesAhmed Yola Alkaliby Work Phone: [facility] [place]Start: 09-27-2022 End: 55-90-1409Ntarua outpatient visit 25 minutesAhmed Yola Alkaliby Work Phone: [facility] [place]edoStart: 08-17-2022 End: 80-13-9581qpvbadubmeXE VALENTE MOUKARBELFacility:W2Zfmvs: 07-21-2022 End: 18-54-6738sotjxebnekEH CHAMP BELLFacility:E1Cozvc: 07-04-2022 End: 21-15-7439agzlhbhrbyDW CHAMP FERMINFacility:D4Xhfce: 06-29-2022 End: 50-31-0777Acdwiksydj and management of inpatientZOHAIB AHMEDFacility:[facility] Start: 2022 End: 56-90-8651mlphlqvnqsZZ CHAMP FERMINFacility:C0Kfoiy: 81-82-7786aixgiprkvlHC CHAMP FERMINFacility:R5Wnhyv: 09-20-2021 End: 11-18-9018nfmqviwtxtWjaqaup Langenberg Other [facility] [employer] Other Start: 56-05-8200Asaopc outpatient visit 15 minutes Geo Manuel Vascular SurgeryStart: 01-09-2021 End: 93-77-3054Xdritr outpatient visit 25 minutesPhiandreas Hicks Jr Work Phone: RVBerry Randle WildwoodStart: 10-10-2020 End: 48-84-0492Vxivfgodv identifierPhiandreas Hicks Jr Work Phone: RV[facility] Randle WildwoodStart: 10-10-2020 End: 36-23-8134Opvgxh T Nelsen Jr Work Phone: RV[facility] Randle WildwoodStart: 08-29-2020 End: 66-66-8993Ovzhqu outpatient visit 25 minutesPhiandreas Hicks Jr Work Phone: [facility] Randle WildwoodStart: 10-26-2019 End: 14-06-1714Icksyykoz Yunier Hicks Jr Work Phone: rvBerry FloreswoodStart: 10-26-2019 End: 49-01-8797BvqrteDevon Hicks Jr Work Phone: rvBerry ZhaoStart: 09-22-2019 End: 76-90-8095Qifyjoajj identifierDevon Hicks Jr Work Phone: rvBerry FremontStart: 09-22-2019 End: 77-43-5414MgkhukDevon Hicks Jr Work Phone: rvBerry [place]ontStart: 05-05-2019 End: 68-96-1089Tgyksu consultation new/estab patient 60 minDevon Hicks Jr Work Phone: rv[facility] [place] Procedures DateProcedureProcedure DetailPerforming ClinicianStart: 13-99-5231Vmkun 1mg Pre- filled SyringeMichael PetersenStart: 12-07-9777Behamokvxgpm njx pharmacologic agt spxMichael PetersenStart: 08-12-2025 End: 46-06-9691Yuessorshfcv ophthalmic imaging retinaSameer Al Breanna MDStart: 08-12-2025 End: 99-63-7903Syjbt 1mg Pre-filled SyringeSameer Al Breanna MDStart: 08-12-2025 Eylea 1mg Pre-filled SyringeMichael PetersenStart: 08-12-2025 End: 81-83-6069Hllkwjfgsqmd njx pharmacologic agt spxSameer Al Breanna MDStart: 08-12-2025 End: 84-61-0130Qcwknrqapb ultrasound dx b-scan w/wo a-scanSameer Vinod Carlos MD Start: 07-28-2025 End: 52-48-4647Hkgyxswthgzw ophthalmic imaging retinaSameer Al Breanna MDStart: 07-28-2025 End: 68-77-6411Fcrxe 1mg Pre-filled SyringeSameer Vinod Breanna MDStart: 07-28-2025 Eylea 1mg Pre-filled SyringeMichael PetersenStart: 07-28-2025 End: 62-44-4915Owoqfnohelca njx pharmacologic agt spxSameer Vinod aCrlos MDStart: 07-28-2025 End: 55-90-9839Jbscdatura ultrasound dx b-scan w/wo a-scanSenrrique Soliman MD Start: 79-29-8247YEZLWUW POCT GLUCOMETERSNicjessica Gilmore DPM Work Phone: Start: 66-23-1731Btrufjcsns of footDaniel Bell II Work Phone: Start: 74-96-2718DANXYNO POCT GLUCOMETERSNicholas A Brown DPM Work Phone: Start: 93-47-9377EYRYDPQ POCT GLUCOMETERSNicholas Berry Brown DPM Work Phone: Start: 85-86-3962Flfcmumxro glycosylated h2sLnujjdJohnna Cedeño ROLLER COASTER DESIGNER Work Phone: Start: 04-03-3217Gkvsv metabolic panel calcium total Alexis Berry Gilmore DPM Work Phone: Start: 31-73-4085Yfrntmzr blood count with white cell differential, automatedAlexis Gilmore DPM Work Phone: Start: 07-12-2025 End: 83-84-9175Xzfga medical xm&eval comprhnsv estab pt 1/>VH (vitreous hemorrhage), right (CMS-HCC)Teena Delcid DO Work Phone: comment on above:VH (vitreous hemorrhage), right (CMS- HCC) (Primary Dx); Dry eyesStart: 31-23-1588OpfppzmbsfyUpioig Bell II Work Phone: Start: 44-99-3424ZUMTIMHXX REQUEST FOR LAB Gerald Fox MD Work Phone: Start: 71-20-9733EicnbijhgxqtvpdbmvhorzktsqIdqlll Berry II Work Phone: Start: 89-19-8458XBSZEMF POCT GLUCOMETERSDale Fox MD Work Phone: Start: 84-76-8043Qjvkaotmdy glycosylated e5fDclnnp M Cesar [employer] DES[employer]ER Work Phone: Start: 44-72-0830Ccriqifwtzmbepf of right breastDafabioel Fermin II Work Phone: Start: 47-36-8902Vpqbofbwofz of right breastDakathi Bell II Work Phone: Start: 34-76-9549IA TOMOSYNTHESIS SCREENING Josse Bell MD Work Phone: Start: 98-26-2612NilixyrctmrZfmces Berry MD Work Phone: Start: 87-17-8261ONPVS CULTURE 2Generic External Data ProviderStart: 16-25-2412FWPES CULTURE 1Generic External Data ProviderStart: 69-29-8514ZZ scan of abdominal aortaDakathi Bell II Work Phone: Start: 87-53-0902Zdukghny tomography of abdomen and pelvis with contrastChamp Bell II Work Phone: Start: 20-15-8008Laqyk chest X-rayChamp Bell II Work Phone: Start: 17-95-0224Zyhvmbvpchj Panel (PCR)Champ Bell II Work Phone: Start: 01-15-3795Rifrx nucleic acid assayDakathi Bell II Work Phone: Start: 02-15-2025 End: 24-89-3404Ajyymiuhbcyl ophthalmic imaging optic nerveTeena Delcid DO Work Phone: Start: 02-15-2025 End: 50-78-9812Wydgg medical xm&eval comprhnsv estab pt 1/>Proliferative diabetic [...] of both eyes; Dry eyesStart: 01-05-2025 End: 42-10-9044Dmapkshzebpr ophthalmic imaging retinaTrace Ramírez MD, PhD Start: 01-05-2025 End: 86-21-9749Ejfuc 1mg Pre-filled SyringeTrace Ramírez MD, PhDStart: 99-93-6695Vfzob 1mg Pre-filled SyringeZackl Lindatart: 01-05-2025 End: 52-92-0437Kmwisftnhthx Injection Of Phamacologic AgentTrace Ramírez MD, PhDStart: 69-53-7615Gorgolkdappm Injection Of Phamacologic AgentZackl Darrell Start: 01-05-2025 End: 74-75-8405Gyoscoemixat njx pharmacologic agt spxTrace Ramírez MD, PhD Start: 91-55-3375Ltygxctlrh glycosylated c7eMxdlctJohnna Cedeño NP Work Phone: Start: 56-07-0201MQC LIPID PROFILE (FASTING)Generic External Data ProviderStart: 47-04-6268KQW CMP (CMP) (FOR REMOTE [facility] USE)Generic External Data ProviderStart: 10-21-2024 End: 84-19-4438Fceht 1mg Pre-filled Neo Ramírez MD, PhDStart: 63-65-9947Toexn 1mg Pre-filled SyringeZackl Lindatart: 10-21-2024 End: 68-32-5897Xlektkbfhle angrph w/lukee i&r angela/Mary Ramírez MD, PhDStart: 10-21-2024 End: 70-92-0764Aqcvcrjmwgbg Injection Of Phamacologic AgentTrace Ramírez MD, PhDStart: 53-97-6480Rlwntxgflrfg Injection Of Phamacologic AgentMicnolan Ramírez Start: 10-21-2024 End: 22-51-1983Ljjjnbbpbymt njx pharmacologic agt spxTrace Ramírez MD, PhD Start: 50-72-9101Ckuktzimer glycosylated x6fMegzzh M Cesar [employer] Work Phone: Start: 08-04-2024 End: 54-05-5261Tnlgyemimmht ophthalmic imaging retinaTrace Ramírez MD, PhD Start: 08-04-2024 End: 42-48-0914Runab 1mg Pre-filled SyringeTrace Ramírez MD, PhDStart: 08-04-2024 End: 44-59-9915Yzqnpjqojfvn Injection Of Phamacologic AgentTrace Ramírez MD, PhDStart: 00-53-8364Vul-invas physiologic std extremity art 2 levelElena I Tabirta PRODUCT ADVISOR-SAXOPHONE TEACHER Work Phone: Start: 57-97-0671Njq bmtry prtl coher intrfrmtry io lens pwr Sasha Delcid DO Work Phone: Start: 06-30-2024 End: 63-98-9862Nydskscrspc injectionTrace Ramírez MD, PhDStart: 06-30-2024 End: 72-79-8338Fimbvpjxlmdm ophthalmic imaging retinaTrace Ramírez MD, PhD Start: 06-30-2024 End: 97-97-5391Mocnyklwtoxv Injection Of Phamacologic AgentTrace Ramírez MD, PhDStart: 06-30-2024 End: 19-83-4103Utrlhkxtnouz njx pharmacologic agt kenroyxTrace Ramírez MD, PhD Start: 92-16-6676JTOUQDHU VASCULAR PROCEDUREMeedi Meka Francine DO Work Phone: Start: 06-21-2024 End: 22-42-1033Adznegldlks time activatedNely Curry MD Work Phone: Start: 06-21-2024 End: 49-24-2460Ucjazykxfbn time activatedNely Curry MD Work Phone: Start: 77-75-1224OMHFRMQQ VASCULAR PROCEDUREGeneric External Data ProviderStart: 88-29-3790Heq-invasive physiologic study extremity 3 levlsGeneric External Data ProviderStart: 23-04-1947Gyuwsnvtz aortogramII Champ Bell Work Phone: Start: 82-69-9458TdppjjwlstkWT Champ Bell Work Phone: Start: 47-59-7924Ebdww volume recorder pneumoplethysmographyII Champ Bell Work Phone: Start: 46-09-0059Xiermoy of coronary artery bypass graftingS/P CABG x 4Sherri Cesar [employer]ER CO[employer]ER DESIGNER Work Phone: Start: 05-06-2024 End: 61-86-6779Invva 1mg Pre-filled SyringeTrace Ramírez MD, PhDStart: 05-06-2024 End: 54-78-1377Laxrng photography w/interpretation & reportTrace Ramírez MD, PhDStart: 05-06-2024 End: 30-18-2734Ccvghkrzrvuq Injection Of Phamacologic AgentTrace Ramírez MD, PhDStart: 05-06-2024 End: 50-17-9878FPS No Charge Uni Or Mary Ramírez MD, PhDStart: 12-03-2023 SEGMENTAL BLOOD PRESSUREGeneric External Data ProviderStart: 06-04-2023H/O: hysterectomyHistory of hysterectomyNicholjose Gilmore DPM Work Phone: Start: 39-71-3972Jtpyn limb angiographyII Champ Bell Work Phone: Start: 10-17-2022 End: 49-10-2323Nlg complex retina detach vitrect &membrane peelTrace Ramírez MD, PhDStart: 10-14-2022 End: 67-48-5899Bpwgc Sample DrugTraec Ramírez MD, PhDStart: 10-14-2022 End: 82-31-9949Hqixnolhphio njx pharmacologic agt spxTrace Ramírez MD, PhD Start: 10-14-2022 End: 92-11-5653Moljcxspdh ultrasound dx b-scan w/wo a-scanTrace Ramírez MD, PhDStart: 09-27-2022 End: 56-20-2358Xksxqyaczcwt ophthalmic imaging retinaTrace Ramírez MD, PhD Start: 09-27-2022 End: 04-49-0473Comvk 1mg Pre-filled SyringeTrace Ramírez MD, PhDStart: 09-27-2022 End: 06-41-7084Lwnlbn Photos No Charge BilateralTrace Ramírez MD, PhDStart: 09-27-2022 End: 58-57-9142Hyixonqmqxjw njx pharmacologic agt spxTrace Ramírez MD, PhD Start: 40-23-5463TvgfapdeyiePamuh Hammad MD Work Phone: Start: 01-09-2021 End: 56-13-6361Lbweanxmyncd ophthalmic imaging retinaTrace Ramírez MD, PhD Start: 10-10-2020 End: 50-34-1282Iiyiit photography w/interpretation & reportMicnolan Ramírez MD, PhDStart: 08-29-2020 End: 61-44-7519Wpzeasjiedie ophthalmic imaging retinaTrace Ramírez MD, PhD Start: 08-29-2020 End: 99-42-5156Zdkxt Sample DrugTrace Ramírez MD, PhDStart: 08-29-2020 End: 26-67-6143Gcrviugaylyo njx pharmacologic agt spxTrace Ramírez MD, PhD Start: 48-65-0421HekyyqgvcbbVxxwlues Brown DPM Work Phone: Start: 10-26-2019 End: 56-18-4764Htaqstywued angrph w/multiframe i&r uni/Mary Ramírez MD, PhDStart: 10-26-2019 End: 03-85-3049Fqctroslv extensive retinopathy photocoagulationTrace Ramírez MD, PhDStart: 09-22-2019 End: 07-02-2676Ncnvmvnbaace ophthalmic imaging retinaTrace Ramírez MD, PhD Start: 05-05-2019 End: 25-36-2327Xrlkzz photography w/interpretation & reportTrace Ramírez MD, PhDHistory of coronary artery bypass graftingS/P CABG x 4Sthomas Cedeño [employer]ER COASTER DESIGNER Work Phone: Plan of Treatment DateCare ActivityDetailAuthorStart: 62-31-2956INaQ/Tdap/Td Vaccines (2 - Td or Tdap)DTaP/Tdap/Td Vaccines (2 - Td or Tdap)[facility] Start: 66-02-8456Ijkikwkis for malignant neoplasm of colonOhioHealth Hardin Memorial HospitalStart: 84-20-1270Ezljb screening for proteinDiabetes: Urine Protein ScreeningNOMS HealthcareStart: 43-28-2978Hzbpipac screeningDiabetes: Retinopathy ScreeningNODC HealthcareStart: 11-60-2113Glkvaeejc for malignant neoplasm of breastMammogramNODC HealthcareStart: 45-37-8763Yogwzawn screeningDiabetes: Retinopathy ScreeningNODC HealthcareStart: 01-09-2026 End: 28-68-9685Nisrjua encounter fjwgzshuv60/02/2026 1:15 PM EST Office Visit [facility] [address] [place] [phone] Teena Delcid DO [address] [place] [address] [facility] EyeStart: 01-05-2026 Glaucoma screeningDiabetes: Retinopathy ScreeningNODC HealthcareStart: 11-44-7223Mmrykfs, Dixie 4 Mnth IO EYL OS/ OCTCVP Physicians Work Phone: Start: 12-01-2025 End: 37-33-4723Yfajppb encounter zsrruejwc84/22/2026 3:40 PM EST Office Visit [facility] [address] [facility] [address] [place] [address] Alexis Gilmore DPM [address] [facility] 5 [place] [address] NOMS CI PODIATRYStart: 11-17-2025 End: 03-83-6385Jpuxuid encounter qcdknblxu93/08/2026 2:00 PM EST Office Visit [facility] [address] [place] [address] Alexis Gilmore DPM [address] [facility] 5 [place] [address] NOMS CI PODIATRYStart: 10-12-9194Ugontqmkjs A1c measurementDiabetes: Hemoglobin Y5BJVDV HealthcareStart: 10-18-2025 End: 82-43-6977Jvhuujr encounter erfdxvjfg05/09/2025 11:00 AM EST Office Visit [facility] [place] [facility] [address] [facility] 110 [place] [address] Johnna Cedeño NP [address] [place] [address] NOMS [place] [facility] MedinceStart: 09-20-2025 End: 36-72-6259Ykucczh encounter xfhmvgdze82/11/2025 10:30 AM EST Office Visit [facility] [place] [facility] [address] [facility] 110 [place] [address] Johnna Cedeño NP [address] [place] [address] ArrivedNOMS [place] Clark MedinceComment on above:ArrivedStart: 09-15-2025 End: 33-12-7871Euagdsu encounter procedureNOMS CI PODIATRYComment on above: Contracture of right ankle (Primary Dx); Achilles tendinitis, right leg; Type 2 diabetes mellitus with hyperglycemia, with long-term current use of insulin (HCC); Pain due to onychomycosis of toenails of both feetStart: 89-95-5758Eimjkwj, Dixie 6 Weeks IO EYL OD(2-3) NO OCTCVP Physicians Work Phone: Start: 08-25-2025 End: 27-67-8640Ubzusbv encounter zizbsmhfs37/16/2025 2:30 PM EDT Office Visit [facility] [address] [place] [address] Alexis Gilmore DPM [address] [facility] 5 [place] [address] NOMJulita ARCHIBALD PODIATRYStart: 08-24-2025 End: 52-08-6952SB Breast - bilateral ScreeningBilateral screening mammogram Imaging Routine Abnormal breast exam Encounter for screening mammogram for malignant neoplasm of breast Expected: 08/24/2025, Expires: 10/24/2026NODC Healthcare Work Phone: Comment on above:Expected: 08/24/2025, Expires: 10/24/2026Start: 08-24-2025 End: 09-91-9479Buunfxh encounter pqkfyvjow00/15/2025 11:30 AM EDT Office Visit NOMJulita [facility] [address] [place] [address] Johnna Cedeño NP [address] [place] [address] ArrivedNOMS [place] Clark MedinceComment on above:ArrivedStart: 68-80-9639Nxwyrykkwg about tobacco useTobacco cessation counselingCVP PhysiciansStart: 11-36-2508Igfpsmm, Dixie Fu Appt Vision Changes Os - See Call NoCVP Physicians Work Phone: Start: 09-33-4077Bbmgdlqfdx about tobacco useTobacco cessation counselingCVP PhysiciansStart: 07-27-2025 End: 49-33-3873Rrlwhzk encounter procedureNO Ivy Espinoza PodiatryComment on above:Contracture of right ankle (Primary Dx); Achilles tendinitis, right legStart: 57-02-4504NnaqqahwrMercer County Community Hospital Start: 07-20-2025 End: 30-87-6097Cwqnbaby US Ankle Brachial Index (BRIDGER) Without ExerciseVascular US Ankle Brachial Index (BRIDGER) Without Exercise Vascular Ultrasound Routine PAD (peripheralartery disease) ([facility]) Expected: 07/20/2025 (Approximate), Expires: 07/20/2026[facility] Service Area Work Phone: Comment on above:Expected: 07/20/2025 (Approximate), Expires: 07/20/2026Start: 07-20-2025 End: 21-07-1758Pfqughr encounter procedureNOMS [place] Clark MedinceComment on above:ArrivedStart: 07-19-2025 End: 80-83-9263Aeepwlb [facility] Start: 04-04-4915Mzevaussbg A1c measurementDiabetes: Hemoglobin X1FJAGS HealthcareStart: 07-14-2025 End: 75-65-0830Iowtdus encounter procedureNOMS CI FMStart: 50-79-0117Lreeacag screeningDiabetes: Retinopathy ScreeningNODC HealthcareStart: 07-12-2025 End: 26-04-4828Wuszkjr encounter isxijslxn29/02/2025 1:00 PM EDT Office Visit [facility] [address] [place] [address] Teena Delcid DO [address] [place] [address] ArrivedYalobusha General Hospital EyeComment on above:ArrivedStart: 90-45-3818FVSCO-19 Vaccine ( season)COVID-19 Vaccine ( season)[facility] HealthcareStart: 11-56-3244Wlodzkhxb vaccinationInfluenza Vaccine (#1)[facility] HealthcareStart: 06-20-2025 End: 44-26-2412Jbcibtc encounter aorxhqlnq95/11/2025 11:00 AM EDT [facility] [address] [facility] 150 [place] [address] Dale Fox MD [address] [place] [address] [address] [place] [address] [facility] Surgical AssociatesStart: 06-16-2025 End: 54-35-9741Howjovn encounter procedureNOMS CI PODIATRYComment on above: Achilles tendinitis, right leg (Primary Dx); Contracture of right ankle; Diabetes mellitus due to underlying condition with diabetic polyneuropathy, unspecified whether long term care administrator insulin use (HCC); Pain due to onychomycosis of toenails of both feetStart: 06-09-2025 End: 48-87-8173Pnihevf encounter jjjtatroo76/31/2025 1:40 PM EDT Office Visit [facility] [address] [facility] 120 [place] [address] Alexis Gilmore DPM [address] [address] NOMS PODIATRYStart: 06-09-2025 End: 10-71-9887YhsmceukxSt. Charles Hospitaltart: 06-08-2025 End: 86-16-8864Fdjejam encounter cqiddisyq23/30/2025 2:00 PM EDT Office Visit [facility] P[facility] [address] [place] [address] Alexis Gilmore DPYola [address] [address] NOMS AL PODStart: 08-18-9379Altvcfjh screeningDiabetes: Retinopathy ScreeningCox NorthStart: 04-14-2025 End: 76-86-5872PFS panel - Blood by Automated countCBC Lab Routine Benign essential hypertension ([facility]) Type 2 diabetes mellitus with hyperglycemia, with long-term current use of insulin ([facility]) Expected: 04/14/2025 (Approximate), Expires: 04/14/2026NOMercy [facility] Work Phone: Comment on above:Expected: 04/14/2025 (Approximate), Expires: 04/14/2026Start: 04-14-2025 End: 58-94-9807Iapjfzvixkjha metabolic 2000 panel - Serum or PlasmaComprehensive metabolic panel Lab Routine Benign essential hypertension ([facility]) Type 2 diabetes mellitus with hyperglycemia, with long-term current use of insulin ([facility]) Expected: 04/14/2025 (Approximate), Expires: 04/14/2026[facility] Healthcare Comment on above:Expected: 04/14/2025 (Approximate), Expires: 04/14/2026Start: 04-14-2025 End: 25-01-5868LUI Skeletal system Views for bone densityDEXA bone density Imaging Routine Estrogen deficiency Expected: 04/14/2025, Expires: 04/14/2026 NOMS HealthcareComment on above:Expected: 04/14/2025, Expires: 04/14/2026Start: 04-14-2025 End: 88-94-9209Pxdvs 1996 panel - Serum or PlasmaLipid panel Lab Routine 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 ([facility]) Mixed hyperlipidemia ([facility]) Expected: 04/14/2025 (Approximate), Expires: 04/14/2026[facility] HealthcareComment on above: Expected: 04/14/2025 (Approximate), Expires: 04/14/2026Start: 04-14-2025 End: 46-04-8261Rfzkubabcore/Creatinine panel in random UrineMicroalbumin / creatinine, urine ratio Lab Routine Poorly controlled diabetes mellitus ([facility]) Expected: 04/14/2025 (Approximate), Expires: 04/14/2026[facility] Healthcare Comment on above:Expected: 04/14/2025 (Approximate), Expires: 04/14/2026Start: 04-14-2025 End: 18-13-6120Mpjjfdjwbsk [Units/volume] in Serum or PlasmaTSH Lab Routine Overweight Screening for thyroid disorder Expected: 04/14/2025 (Approximate), Expires: 04/14/2026[facility] HealthcareComment on above:Expected: 04/14/2025 (Approximate), Expires: 04/14/2026Start: 04-14-2025 End: 57-44-3147Zewojre encounter qpephvunm23/05/2025 1:30 PM EDT Office Visit [facility] [address] [facility] [address] [place] [address] Johnna Cedeño [employer]ER DESIGNER [address] [facility] 110 [place] [address] [facility] FMComment on above:ArrivedStart: 05-23-2025Medicare Annual Wellness (AWV)Medicare Annual Wellness (AWV)NOM[facility] HealthcareStart: 03-31-2025 End: 73-65-5411Xypvway encounter hhoicbglx72/22/2025 1:00 PM EDT Office Visit [facility] [address] [facility] [address] [place] [address] Johnna Cedeño NP [address] [facility] [address] [place] [address] NOMS CI FMStart: 03-30-2025 End: 34-34-4787Igoaajx encounter /21/2025 2:30 PM EDT Office Visit [facility] [address] [place] [address] Alexis Gilmore DPM [address] [address] Contracture of right ankle (Primary Dx); Achilles tendinitis, right leg; Diabetes mellitus due to underlying condition with diabetic polyneuropathy, unspecified whether long term care administrator insulin use ([facility]); Pain due to onychomycosis of toenails of both feetNOMS AL PODComment on above:Contracture of right ankle (Primary Dx); Achilles tendinitis, right leg; Diabetes mellitus due to underlying condition with diabetic polyneuropathy, unspecified whether longterm insulin use ([facility]); Pain due to onychomycosis of toenails of both feetStart: 03-30-2025 End: 03-38-7418Eparxmw encounter dalmcfysn95/21/2025 9:30 AM EDT Office Visit [facility] [address] [facility] [address] [place] [address] Johnna Cedeño NP [address] [facility] [address] [place] [address] NOMS CI FMStart: 97-37-4239Ecomnsxmxb A1c measurement Diabetes: Hemoglobin C7LTFRV HealthcareStart: 03-10-2025 End: 36-02-0929Abeuova encounter ajehdwmoc68/01/2025 2:40 PM EDT Office Visit [facility] [address] [place] [address] Alexis Gilmore DPM [address] [address] NOMS CI PODIATRYStart: 03-01-2025 End: 53-46-3249FA Breast - bilateral ScreeningBilateral screening mammogram Imaging Routine Encounter for screening mammogram for breast cancer Expected: 03/01/2025, Expires: 05/01/2026[facility] Work Phone: Comment on above:Expected: 03/01/2025, Expires: 05/01/2026Start: 02-23-2025 End: 61-17-7352Jcbnxfn encounter qerjkmlvp54/16/2025 10:30 AM EDT Office Visit [facility] [address] [facility] [address] [place] [address] Johnna Cedeño, [employer] DESIGNER [address] [place] [address] NOMS CI FMStart: 02-17-2025 End: 73-48-3768Czojfbr encounter vowtfswna38/10/2025 9:40 AM EDT Office Visit [facility] [address] [place] [address] Alexis Gilmore DPM [address] [address] NOMS CI PODIATRYStart: 84-57-8111Ncyokyy, Dixie / 5-6wk JAYLEN BAIRD Physicians Work Phone: Start: 82-04-8531JdofluvapMercer County Community Hospital Start: 48-71-6971BqundjvdjSt. Charles Hospitaltart: 35-41-3834Edaqlnzc admissionSt. Charles Hospitaltart: 26-03-6440WuxjfkacnSt. Charles Hospitaltart: 02-15-2025 End: 40-15-7106Sexxcig encounter procedureNOMS ZIMMERMAN OPHTComment on above:Arrived Start: 04-93-3955Emteh screening for proteinDiabetes: Urine Protein Screening NOMS HealthcareStart: 01-13-2025 End: 96-63-9017Nfpwrizr Gbuajee5901/13/2025 11:50 AM EST Clinical Support [facility] [address] [place] [phone] Alexis Gilmore DPM [address] [address] NOMS CI PODIATRYStart: 12-30-2024 End: 57-05-2792KE Breast - bilateral ScreeningBilateral screening mammogram Imaging Routine Encounter for screening mammogram for malignant neoplasm of breast Expected: 12/30/2024, Expires: 02/27/2026NOMercy [facility] Work Phone: Comment on above:Expected: 12/30/2024, Expires: 02/27/2026Start: 12-30-2024 End: 92-33-4253Utrfloa encounter procedureNOMS CRISTELA FMComment on above:Heel spur, right (Primary Dx); Achilles tendinitis, right leg; Contracture of right ankleStart: 54-52-7354Pcsuchtwas A1c measurementDiabetes: Hemoglobin F0MIHFT HealthcareStart: 12-23-2024 End: 51-54-3040Cscxovhh Fywpqix5612/23/2024 9:50 AM EST Clinical Support [facility] [address] [facility] [address] [place] [phone] Alexis Gilmore DPM [address] [address] NOMS CI PODIATRYStart: 12-09-2024 End: 09-48-6785Fufqexn encounter /30/2025 9:20 AM EST Office Visit [facility] [address] [place] [phone] Alexis Gilmore DPM [address] [address] NOMS CI PODIATRYStart: 14-85-5051Vcyckuar mellitus screeningDiabetes ScreeningOhioHealth Hardin Memorial HospitalStart: 10-15-2024 End: 31-70-5989Fxuiaxj encounter procedureNOMS NB OPHTComment on above:Arrived Start: 09-30-2024 End: 50-51-3563Ufbhynx encounter procedureNOMS CI FMComment on above:Arrived Start: 09-30-2024 End: 42-21-1932Odxjrpy encounter procedureNOMS CI PODIATRYComment on above:Dry gangrene (CMS/HCC) (Primary Dx); PVD (peripheral vascular disease) (CMS/HCC); Diabetes mellitus due to underlying condition with diabetic polyneuropathy, unspecified whether longterm insulin use (CMS/HCC); Pain due to onychomycosis of toenails of both feetStart: 09-21-2024 End: 70-72-8031Sbzgazd encounter xkpxmcocv20/12/2024 11:50 AM EST Office Visit [facility] [address] [place] [address] Alexis Gilmore DPM [address] [address] NOMS SC PODStart: 09-17-2024 End: 74-73-1665Lfzwuky encounter /08/2024 11:50 AM EST Office Visit [facility] [address] [place] [address] Alexis Gilmore DPM [address] [address] NOMS SC PODStart: 09-17-2024 End: 41-28-7715Noauklg encounter txbodemqg42/08/2024 9:30 AM EST Office Visit [facility] NB OPHT [address] [facility] [address] [place] [address] Teena Delcid, DO [address] [place] [address] ArrivedNOMS NB OPHTComment on above:ArrivedStart: 09-07-2024 End: 62-65-3086Vfdyecm encounter procedureNOMS NB OPHTComment on above:Arrived Start: 09-06-2024 End: 51-19-5855Umolfhh encounter aajmdgnod90/28/2024 9:05 AM EDT Procedure Visit [facility] EXT DEP Teena Delcid, DO [address] [place] [address] NOMS EXT DEPStart: 08-31-2024 End: 64-80-8066Jvkwgod encounter uufdedyzz58/22/2024 8:45 AM EDT Office Visit PRIYANKA ZIMMERMAN OPHT [address] [place] [address] Teena Delcid, DO [address] [place] [address] NOMJulita NB OPHTStart: 08-24-2024 End: 30-52-6214Xfenvup encounter procedureNOMS NB OPHTComment on above:Arrived Start: 08-23-2024 End: 73-69-0537Weyrdum encounter munbfzviy89/14/2024 8:45 AM EDT Procedure Visit [facility] EXT DEP Teena Delcid, DO [address] [place] [address] NOMS EXT DEPStart: 08-04-2024 Diann Patel 5-6 (5)wks Io Oct Eyl OuCVP Physicians Work Phone: Start: 07-22-2024 End: 39-38-6083Fspefbsh US Ankle Brachial Index (BRIDGER) Without ExerciseVascular US Ankle Brachial Index (BRIDGER) Without Exercise Vascular Ultrasound Routine PAD (peripheralartery disease) ([facility]) S/P peripheral artery angioplasty Expected: 07/22/2024 (Approximate), Expires: 06/21/2026[facility] Work Phone: Comment on above:Expected: 07/22/2024 (Approximate), Expires: 06/21/2026Start: 07-20-2024 End: 31-23-6102Cgarzjb encounter procedureUH [facility] Jagr[facility] Start: 07-13-2024 End: 01-75-1861Zkhcsrr encounter procedureNOMS NB OPHTComment on above:Arrived Start: 38-41-4170Wlnkspkkd vaccinationInfluenza Vaccine (#1)[facility] Start: 07-09-2024 End: 65-81-2040Pltgfdx encounter vefdmgeau45/30/2024 11:50 AM EDT [facility] [address] [place] [address] Alexis Gilmore, DPM [address] [address] PVD (peripheral vascular disease) ([facility]) (Primary Dx); Diabetes mellitus due to underlying condition with diabetic polyneuropathy, unspecified whether long term care administrator insulin use ([facility]); Dry gangrene ([facility]); Onychomycosis; Toe pain, bilateralNOMS SC PODComment on above:PVD (peripheral vascular disease) ([facility]) (Primary Dx); Diabetes mellitus due to underlying condition with diabetic polyneuropathy, unspecified whether long term care administrator insulin use ([facility]); Dry gangrene ([facility]); Onychomycosis; Toe pain, bilateralStart: 21-20-0920Gwcmzdtxlq A1c measurementDiabetes: Hemoglobin A9CGTLYCox NorthStart: 17-13-4430Yggyvbljwa (US) doppler flow mapping of vein of upper limbUS venous mapping BI [facility]: 10-39-4981OI Lower extremity veins - [facility] Hospitalt[facility]: 87-43-7691YZ scan venography of lower limbsUS venous mapping BI lowerSt. Charles Hospitaltart: 83-35-0624VN Upper extremity vein - bilateralSt. Charles Hospitaltart: 41-58-1479Tdmmzda referralSelect Medical Specialty [facility] Work Phone: Start: 08-20-6748ZifswkzraMercer County Community Hospital Start: 91-37-9017Rxuyt volume recorder pneumoplethysmographyUS arterial pvr rest [facility]: 72-63-4802RhtcqxageSt. Charles Hospitaltart: 29-31-7573XOeX/Tdap/Td Vaccines (2 - Td or Tdap)DTaP/Tdap/Td Vaccines (2 - Td or Tdap)[facility]OM[facility] HealthcareStart: 42-91-6836Nivpahdnvk A1c measurementDiabetes: Hemoglobin O6JDNNX HealthcareStart: 02-05-2024 End: 75-92-7142Edsoexc encounter dbpfgicet24/28/2024 10:10 AM EDT Office Visit [facility] [address] [facility] [address] [place] [address] Alexis Gilmore, DPYola [address] [facility] 5 [place] [address] NOMS CI PODIATRYStart: 12-15-2023 End: 91-48-1466Kixbadc encounter spxphgylx61/05/2024 2:30 PM EST Office Visit [facility] [address] [facility] [address] [place] [address] Champ Bell MD [address] [facility] [address] [place] [address] NOMS CI FMStart: 98-14-0288Mahotwksz vaccinationInfluenza Vaccine (#1)NOM[facility] HealthcareStart: 10-66-3238Wrdnrtqoq for malignant neoplasm of [facility] HospitalStart: 73-87-1333EpfbnyniqSt. Charles Hospitaltart: 99-66-3947Fdfpzaam screeningDiabetes: Retinopathy Screening NOM[facility] HealthcareStart: 65-01-8235Wjhcjybdgezm Vaccine: 65+ Years (2 - PCV) Pneumococcal Vaccine: 65+ Years (2 - PCV)[facility] HealthcareStart: 10-06-2021 Pneumococcal Vaccine: 65+ Years (2 of 2 - PCV)Pneumococcal Vaccine: 65+ Years (2 of 2 - PCV)[facility] HealthcareStart: 81-39-2354Bsmyyfcdrjje Vaccine: 65+ Years (3 of 3 - PCV)Pneumococcal Vaccine: 65+ Years (3 of 3 - PCV)[facility]Start: 78-25-0035Rihgejvuq for malignant neoplasm of breastMammogramBRIGHAM CITY COMMUNITY [facility]OSPITAL Healthcare Start: 16-65-6132Xyosy screening for proteinDiabetes: Urine Protein Screening [facility] NorthStart: 14-13-1192Ywcpuxz cessation educationTobacco cessation counselingCVP PhysiciansStart: 71-22-4136Pqiehkw EducationHealth Information for You: MedlinePl~[facility] Work Phone: Start: 12-31-7908FUY patients and/or patients aged 60+ years (1 - 1-dose 60+ series)RSV patients and/or patients aged 60+ years (1 - 1-dose 60+ series)[facility]: 82-83-0758Ntmazh Vaccines (1 of 2)Zoster Vaccines (1 of 2)[facility]: 18-21-0835Oqpybemie C screeningHepatitis C Screening [facility]: 02-31-6916BYREE-19 Vaccine (#1)COVID-19 Vaccine (#1)[facility]: 14-60-3336Tugao panelLipid PanelMcCullough-Hyde Memorial Hospital: 1954Medicare Annual Wellness (AWV)Medicare Annual Wellness (AWV)[facility]: 1954Medicare Annual Wellness VisitMedicare Annual Wellness Visit (AWV)[facility]: 06-74-9834Nbioncvuf for malignant neoplasm of colonOhioHealth Hardin Memorial HospitalBLOOD CULTURE 1BLOOD CULTURE 1 Lab Routine 02/18/2025 6:00 AM EDTNOMS HealthcareBLOOD CULTURE 2BLOOD CULTURE 2 Lab Routine 02/18/2025 6:34 AM EDTNOMS HealthcareGlucose [Mass/volume] in Serum or PlasmaPOCT Glucose Point of Care Testing - Docked Device Routine As needed (Lab) until discontinued starting 06/21/2024[facility] Service Area Work Phone: Comment on above:As needed (Lab) until discontinued starting 06/21/2024atient EducationSelect Medical Specialty [facility] Work Phone: Patient referralSelect Medical Specialty Hospital [facility] Work Phone: US Eye+Orbit - bilateralIOL Biometry - OU - Both Eyes (CPT 36431) Ophthalmology Routine Pseudophakia Ordered: 10/15/2024[facility] Work Phone: comment on above:Ordered: 10/15/2024US Lower extremity veins - [facility] CenterUS Upper extremity vein - [facility] CenterVascular US Ankle Brachial Index (BRIDGER) Without ExerciseVascular US Ankle Brachial Index (BRIDGER) Without Exercise Vascular Ultrasound Routine PAD (peripheralartery disease) ([facility]) S/P peripheral artery angioplasty 07/20/2024 4:17 PM [facility] Service Area Work Phone: Immunizations Immunization DateImmunizationNotesCare LirbknpiBpviwyix35-66-2484Yuzsmzknh, High-dose Seasonal, Quadrivalent, Preservative FreeManjula CUEVAS Work Phone: [facility] NorthFmdipliiza32-84-6508xjgghgeox virus vaccine, unspecified formulationDale Cronin MD Work Phone: [facility] NorthHpgyijglfw70-84-3911yagzost toxoid, reduced diphtheria toxoid, and acellular pertussis vaccine, adsorbedNicholas Brown DPM Work Phone: NOMercy McCune-[facility]oks HospitalGqfqwvwmda63-93-1840ezssmdxvu, high dose seasonal, preservative-freeNicholas Dillon DPM Work Phone: [facility] NorthKrpdqhinbw79-51-5864Ymbqvxuop, High-dose Seasonal, Quadrivalent, Preservative FreeNicholas Dillon DPM Work Phone: noMer[facility] HospitalOgsshboifa87-75-2243qbugsaayn virus vaccine, unspecified formulationNickittyas Brown DPM Work Phone: [facility] NorthZuedfbqjyp92-65-1180Aqareawss, Seasonal, Quadrivalent, AdjuvantedNicholas Brown DPM Work Phone: [phone] [place], [place] [address]Ddecrgdnym39-28-8989fntnomuxh, injectable, quadrivalent, preservative freeNicholas Brown DPM Work Phone: [phone] [place], [place] [address]Hbecyovzdh30-24-8475diromaxdmuxl polysaccharide vaccine, 23 valentNicholas Brown DPM Work Phone: [phone] [place], [place] [address]Uwftzmspzt17-01-0645ldwornvfj, high dose seasonal, preservative-freeNicholas Brown DPM Work Phone: [phone] [place], [place] [address]Lhffeteqvy14-90-1836zopbmayfr, high dose seasonal, preservative-freeNicholas Brown DPM Work Phone: [phone] [place], [place] [address]Lzrqdjzjlk11-74-1983alvdxkxk influenza, intradermal, preservative freeNicholas Brown DPM Work Phone: [phone] [place], [place] [address]Cpxqnwuert26-39-9988vpecvfzx influenza, intradermal, preservative freeNicholas Brown DPM Work Phone: [phone] [place], [place] [address]Kqwjedbrgk27-64-1212gypvvkiew, injectable, quadrivalent, preservative freeNicholas Brown DPM Work Phone: [phone] [place], [place] [address]Hidwxsaara53-35-9328wmnjipphqgni polysaccharide vaccine, 23 valentNicholas Brown DPM Work Phone: [phone] [place], [place] [address]Pwjnagqrtc41-95-5940mgjtkeal influenza, intradermal, preservative freeNicholas Brown DPM Work Phone: [phone] [place], [place] [address]Liflfzmusw38-86-3510donreittr, injectable, quadrivalent, preservative freeNicholas Brown DPM Work Phone: [phone] [place] [address] Payers DatePayer CategoryPayerPolicy [id number] [facility] [id number] [id number] 2015Medicare [id number] [id number] 1960 Fgfw-[id number] 2..1.295388.58[id number] 2.0.1.023130.3.579.2.44735-29-5985Fxsvjdk1160000 2.0.1.711960.3.579.2.83976-88-6585Sfzeedh5878519 2.0.1.701097.3.579.2.69589-68-5521Vmkjhgb5620860 2.840.1.084098.3.579.2.69166-53-6453Hzatdad1675780 2.16840.1.788473.3.579.2.59100-74-1666Gtryxwe6756935 2.16840.1.843102.3.579.2.88787-66-0557Czqbiom5043000 2.16840.1.717426.3.579.2.49972-71-1412Mjycols1875213 2.16.840.1.135971.3.579.2.51231-71-6027Yiqzvpz3862453 2.16.840.1.845992.3.579.2.46202-28-5927Ljwddfw10685489 2.16.840.1.129316.3.579.2.054515-24-3329Hmyaqmo02899515 2.16.840.1.470501.3.579.2.591674-44-3367Uvliftm32963551 2.16840.1.123417.3.579.2.659860-29-8555Cyiqyty85965345 2.16.840.1.813160.3.579.2.065847-47-6331Wyzuaqs03515992 2.16840.1.508840.3.579.2.973606-52-0845Fozeqbu71219248 2.16840.1.704665.3.579.2.862698-58-5930Yjbbxqm2490829 2.16.840.1.527270.3.579.2.040039-20-2152Tbzkzuz2592541 2.16840.1.337027.3.579.2.694319-88-5186Qhgcwsn7001058 2.16.840.1.956349.3.579.2.615486-42-0805Edffzzg3666959 2.16.840.1.547100.3.579.2.252373-86-2411Rfcazfw0951229 2.16.840.1.715106.3.579.2.093522-43-3445Yxvmxbl4253028 2.16840.1.505285.3.579.2.116532-23-6471Jkhiggj0078538 2.16840.1.560687.3.579.2.543395-05-9341Hlupnlj04783745 2.840.1.948627.3.579.2.754439-54-6966Yqttndm59321708 2.840.1.897488.3.579.2.783403-32-1321Woomdzk67826794 2.840.1.260351.3.579.2.638458-08-1677Bwlmrvm06772918 2.840.1.423351.3.579.2.128894-63-1393Xogulxm58519168 2..1.898569.3.579.2.877953-03-2612Mfdoobw76749369 2.0.1.990634.3.579.2.897635-43-6851Oyeatqt75772340 2.840.1.343251.3.579.2.829255-91-9651Oocesuo41643941 2.840.1.547629.3.579.2.347166-95-7505Xkwhwlk33684150 2..1.936553.3.579.2.930256-20-7486Jskpuhc86702543 2.0.1.705045.3.579.2.658223-64-3107Rssktmo20010859 2.0.1.307647.3.579.2.085995-27-9304[place]1361711 2.840.1.779708.3.579.2.878518-08-6821Eofgjfg1572065 2.840.1.112103.3.579.2.149984-79-8232Tmduuoc3195151 2.16.840.1.408389.3.579.2.503415-76-9200Gexqeas5546269 2.16.840.1.535186.3.579.2.367926-80-0201Bjtwiaz9063843 2.16.840.1.522280.3.579.2.099480-64-9231Uxmmgrh2167876 2..840.1.152336.3.579.2.489852-43-7920Javbbtg6413496 2..840.1.025362.3.579.2.130933-15-5688Rapsxzl4615339 2.16.840.1.590406.3.579.2.308766-53-9558Lfuagdj9170308 2..840.1.084106.3.579.2.415253-21-6419Yttctsp7344982 2.16.840.1.567331.3.579.2.9678Ydotvnu05563902 2.16.840.1.907419.3.579.2.531 Kukwwkn00080791 2.16.840.1.937160.3.579.2.238Plgwdzu07567905 2..840.1.628218.3.579.2.894Xltejip98065922 2.840.1.975066.3.579.2.531 Vvleice78555371 2.840.1.450733.3.579.2.531 Social History DateTypeDetailFacilityStart: 12-11-2023 End: 59-30-4212Uhc Assigned At [facility] Other Start: 01-13-2023 End: 99-41-5858Vywlofo smoking status NHISNever smoked tobacco (finding) [facility] 41-86-5623Grn Assigned At BirthFemale [facility]: 12-11-2023 End: 41-75-7103Uictzzj intakeLifetime non-drinker (finding)[facility] HealthcareStart: 12-11-2023 End: 37-44-8585Wvktsir of Social functionNOMS HealthcareStart: 38-70-8140Mrc Assigned At BirthNot on fileNOMS HealthcareStart: 06-30-2024 End: 66-07-8645Gbidzyj smoking status NHISLight tobacco smokerCVP Physicians Start: 68-53-8077Pjrpqpk of tobacco useLight cigarette smoker (1-9 cigs/day)[facility]iciansStart: 01-48-2342Phqisn-related behavior (observable entity)Caffeine Use DetailsCVP PhysiciansStart: 26-75-1433Ywrgsse use and exposureSmoking Tobacco Use DetailsCVP PhysiciansStart: 05-05-2024 End: 14-88-3426Pbijzlc smoking status NHISEx-smokerNOMS Healthcare Work Phone: History of tobacco useCurrent smokerN[facility]S Healthcare History of tobacco useCigarette SmokerNOMS HealthcareStart: 06-15-2024 End: 97-27-3538Jvnorjc use and exposureSmokeless tobacco non-userUnSalem Regional Medical Center Work Phone: How often to you have a drink containing alcohol?Never [facility]: 35-67-8521Mmu many standard drinks containing alcohol do you have on a typical day?Patient does not drinkOhioHealth Hardin Memorial Hospital Work Phone: In the past 12 months, was there a time when you were not able to pay the mortgage or rent on time?NoOhioHealth Hardin Memorial Hospital Work Phone: Start: 06-11-2024 End: 74-13-3073Wpgjqjba to SARS-CoV-2 (event)Not sureUnSalem Regional Medical CenterStart: 02-15-2025 End: 46-29-1913OrtFhpkxb (finding)[facility] HospitalHow often do you need to have someone help you when you read instructions, pamphlets, or other written material from your doctor or pharmacy [SILS][facility] Work Phone: Tobacco smoking status NHISTobacco smoking consumption unknownSelect Medical Specialty Hospital - Trumbullexual OrientationLesbian, smart or homosexualCVP Physicians Work Phone: NEGATED: Highlighted rowAlcohol intakeAlcohol Use DetailsCVP Physicians Medical Equipment Procedure CodeEquipment CodeEquipment Original TextEquipment IdentifierDates [id number]: 12-30-2023 End: 19-08-9183SKT DIRECTED TO ADMINISTER INSULIN TWICE [id number]: 02-02-2024 Goals DatePatient GoalDesired Activity/State Functional Status EbabQqxnigykdyFxbzqmPdvdbxco91-20-4963Yikymcm Health Questionnaire 2 item (PHQ- 2) [Reported][facility] NorthCsjqezodkv48-40-9060Drugrec Health Questionnaire 2 item (PHQ- 2) [Reported][facility] NorthYvnegoudjt65-71-6131Vsrjwuw Health Questionnaire 2 item (PHQ- 2) [Reported][facility] NorthSgeknetkwp20-48-2782UUB-8 quick depression assessment panel [Reported.PHQ][facility] NorthCbdyizfgmm36-84-0292Yazlpat Health Questionnaire 2 item (PHQ- 2) [Reported][facility] NorthJpambfuurb66-68-2746Faeaiah Health Questionnaire 2 item (PHQ- 2) [Reported][facility] NorthNlcnquevrb67-28-5159Izvohmozbt statusPatient at Baseline [facility] Work Phone: [phone]aebgapo statusPatient Not at Baseline [facility] Work Phone: [phone]drk Health Questionnaire 2 item (PHQ-2) [Reported][facility] Mental Status NuhuMmorwnfaknQaugejEwlhiazm70-90-4597Xhowacost functionCognitive Status Patient at BaselinePromedica [facility] Work Phone: [phone]podbku functionCognitive Status Patient at BaselinePromedica Def[facility] Work Phone: Clinical Notes 09-20-2021 to 09-20-2025 Note Date & UkduRuqcOabdoxzk90-82-2646 History of Present illness Narrative* Johnna Cedeño, [...] mouth Daily 100 tablet 2 Continuous Glucose Legislative Assistant (Dexcom G7 Legislative Assistant) device 1 Device yearly 1 each 0 [...] Other Past Medical History: Diagnosis Date A-fib ([facility]) 2022 with RVR Anxiety Aortic stenosis 06/2022 Carotid artery disease Cataract CHF (congestive heart failure) ([facility]) 06/2022 Colon polyp 2016 Diverticulitis DM (diabetes mellitus) ([facility]) HLD (hyperlipidemia) HTN (hypertension) VT (myocardial infarction) ([facility]) NSTEMI, initial episode of care ([facility]) 2022 Retinal hemorrhage Past Surgical History: Procedure [...] No follow-ups on file. documented in this encounterCox NorthGrwpidiniu30-22-1392 History of Present illness Narrative* Alexis Gilmore [...] History: Past Medical History: Diagnosis Date A-fib ([facility]) 2022 with RVR Anxiety Aortic stenosis 06/2022 Carotid artery disease Cataract CHF (congestive heart failure) ([facility]) 06/2022 Colon polyp 2016 Diverticulitis DM (diabetes mellitus) ([facility]) HLD (hyperlipidemia) HTN (hypertension) VT (myocardial infarction) ([facility]) NSTEMI, initial episode of care ([facility]) 2022 Retinal hemorrhage Medications: Current Outpatient Medications: [...] Disp: 100 tablet, Rfl: 2 Continuous Glucose Legislative Assistant (Dexcom G7 Legislative Assistant) device, 1 Device yearly, Disp: 1 each, [...] Strain: Low Risk (02/18/2025) Received from [facility] Overall Financial Resource Strain (CARDIA) Difficulty of Paying Living Expenses: Not hard at all Food Insecurity: No Food Insecurity (02/18/2025) Received from [facility] Hunger Vital Sign Within the past 12 months, you worried that your food would run out before you got the money to buymore.: Never true Ran Out of Food in the Last Year: Not on file Transportation Needs: No Transportation Needs (02/18/2025) Received from [facility] Transportation In the past 12 months, has lack of transportation kept you from medical appointments or from getting medications?: No Lack of Transportation (Non-Medical): Not on file Physical Activity: Inactive (06/22/2024) [facility] Exercise Vital Sign On average, how many days per week do you engage in moderate to strenuous exercise (like a brisk walk)?: 0 days On average, how many minutes do you engage in exercise at this level?: 0 min Stress: Stress Concern Present (12/03/2023) Received from [facility] [place] [employer] Occupational Health - Occupational Stress Questionnaire Feeling of Stress : To some extent Social Connections: Moderately Isolated (12/03/2023) Received from [facility] Social Connection and Isolation Panel In a typical week, how many times do you talk on the phone with family, friends, or neighbors?: More than three times a week How often do you get together with friends or relatives?: More than three times a week How often do you attend judaism or sabianism services?: Never Do you belong to any clubs or organizations such as judaism groups, unions, fraternal or athletic groups, or school groups?: No How often do you attend meetings of the clubs or organizations you belong to?: Never Are you , , , , never , or living with a partner?: Intimate Partner Violence: Not At Risk (04/26/2025) Received from [facility] Humiliation, Afraid, Rape, and Kick questionnaire [...] Stability: Low Risk (02/18/2025) Received from [facility] Housing Stability Vital Sign In the last 12 months, was there a time when you were not able to pay the mortgage or rent on time?: No Number of Times Moved in the Last Year: Not on file At any time in the past 12 months, were you homeless or living in a prison (including now)?: No ROS: General: denies fever, [...] positive edema to left foot. NEURO: 5.07 [place] Tru[place] monofilament test diminished to digits and forefoot bilaterally 125Hz tuning fork diminished to 1st MPJ bilaterally ORTHO: Positive pain on palpation to toenails of the left 1,2,3,4,5 toes and right 1,2,3,4,5 toes Flexion deformities digits 2 through 5 bilateral Positive pain on palpation of right retrocalcaneal bursa and Achilles with negative palpable [place] ASSESSMENT 1. Contracture of right ankle 2. [...] timeframe Alexis Gilmore DPM documented in this encounterCox NorthPnbewhsrtg21-77-5041 History of Present illness Narrative* Johnna Cedeño [...] these instructions. Chronic kidney disease, stage 3b ([facility]) This is a chronic medical condition that [...] mouth Daily 100 tablet 2 Continuous Glucose Legislative Assistant (Dexcom G7 Legislative Assistant) device 1 Device yearly 1 each 0 [...] [5] Past Medical History: Diagnosis Date A-fib ([facility]) 2022 with RVR Anxiety Aortic stenosis 06/2022 Carotid artery disease Cataract CHF (congestive heart failure) ([facility]) 06/2022 Colon polyp 2016 Diverticulitis DM (diabetes mellitus) ([facility]) HLD (hyperlipidemia) HTN (hypertension) VT (myocardial infarction) ([facility]) NSTEMI, initial episode of care ([facility]) 2022 Retinal hemorrhage [6] Past Surgical History: [...] HYSTERECTOMY W/ BILATERAL SALPINGOOPHORECTOMY documented in this encounterCox NorthVhroeyqohi24-14-8786 Evaluation note* Type Assessment Date assessment Vitreous [...] ation), bilateral: H26.493 [facility] Work Phone: [phone] 388-840510-03-2025 History of Present illness Narrative* Encounter Date [...] 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 Patient denies any [...] and left eye. [facility] Work Phone: 1([phone]) 726-447410-03-2025 Instructions* Date Instruction Additional Infor mation Impression/Plan [...] of right eye [facility] Work Phone: [phone] Evaluation note* Type Assessment Date assessment Type [...] : H43.11. Right [facility] Work Phone: [phone]) 679-852409-18-2025 History of Present illness Narrative* Encounter Date [...] 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 Patient denies any [...] [facility] Physicians Work Phone: 1([phone]) 823-117809-18-2025 Instructions* Date Instruction Additional Infor ralphleena Impression/Plan [...] of right eye [facility] Work Phone: [phone]) 856-941009-17-2025 History of Present illness Narrative* Alexis Gilmore, [...] History: Past Medical History: Diagnosis Date A-fib ([facility]) 2022 with RVR Anxiety Aortic stenosis 06/2022 Carotid artery disease Cataract CHF (congestive heart failure) ([facility]) 06/2022 Colon polyp 2016 Diverticulitis DM (diabetes mellitus) ([facility]) HLD (hyperlipidemia) HTN (hypertension) VT (myocardial infarction) ([facility]) NSTEMI, initial episode of care ([facility]) 2022 Retinal hemorrhage Medications: Current Outpatient Medications: [...] Disp: 100 tablet, Rfl: 2 Continuous Glucose Legislative Assistant (Dexcom G7 Legislative Assistant) device, 1 Device yearly, Disp: 1 each, [...] MG tablet, , Disp: , Rfl: HYDROcodone-acetaminophen ([facility]) 5-325 MG tablet, Take 1 tablet by [...] positive edema to left foot. NEURO: 5.07 [place] Truong monofilament test diminished to digits and [...] medication Alexis Gilmore DPM documented in this encounterCox NorthEdhftnuhrn57-00-4203 History of Present illness Narrative* Johnna Cedeño, [employer]ER DESIGNER - 07/20/2025 11:30 AM EDT Images from [...] mouth Daily 100 tablet 2 Continuous Glucose Legislative Assistant (Dexcom G7 Legislative Assistant) device 1 Device yearly 1 each 0 [...] 3 hydrALAZINE (Apresoline) 100 MG tablet HYDROcodone-acetaminophen ([facility]) 5-325 MG tablet Take 1 tablet by [...] Other Past Medical History: Diagnosis Date A-fib ([facility]) 2022 with RVR Anxiety Aortic stenosis 06/2022 Carotid artery disease Cataract CHF (congestive heart failure) ([facility]) 06/2022 Colon polyp 2016 Diverticulitis DM (diabetes mellitus) ([facility]) HLD (hyperlipidemia) HTN (hypertension) VT (myocardial infarction) ([facility]) NSTEMI, initial episode of care ([facility]) 2022 Retinal hemorrhage Past Surgical History: Procedure [...] current use of insulin, unspecified retinopathy severity ([facility]) - POCT glycosylated hemoglobin (Hb A1C) docked [...] mouth Daily 100 tablet 2 Continuous Glucose Legislative Assistant (Dexcom G7 Legislative Assistant) device 1 Device yearly 1 each 0 [...] 3 hydrALAZINE (Apresoline) 100 MG tablet HYDROcodone-acetaminophen ([facility]) 5-325 MG tablet Take 1 tablet by [...] Other Past Medical History: Diagnosis Date A-fib ([facility]) 2022 with RVR Anxiety Aortic stenosis 06/2022 Carotid artery disease Cataract CHF (congestive heart failure) ([facility]) 06/2022 Colon polyp 2016 Diverticulitis DM (diabetes mellitus) ([facility]) HLD (hyperlipidemia) HTN (hypertension) VT (myocardial infarction) ([facility]) NSTEMI, initial episode of care ([facility]) 2022 Retinal hemorrhage Past Surgical History: Procedure [...] No follow-ups on file. documented in this encounterCox NorthPcqwgrcwet50-17-1586 History of Present illness Narrative* Alexis Gilmore [...] History: Past Medical History: Diagnosis Date A-fib ([facility]) 2022 with RVR Anxiety Aortic stenosis 06/2022 Carotid artery disease Cataract CHF (congestive heart failure) ([facility]) 06/2022 Colon polyp 2016 Diverticulitis DM (diabetes mellitus) ([facility]) HLD (hyperlipidemia) HTN (hypertension) VT (myocardial infarction) ([facility]) NSTEMI, initial episode of care ([facility]) 2022 Retinal hemorrhage Medications: Current Outpatient Medications: [...] Disp: 100 tablet, Rfl: 2 Continuous Glucose Legislative Assistant (Dexcom G7 Legislative Assistant) device, 1 Device yearly, Disp: 1 each, [...] Strain: Low Risk (02/18/2025) Received from [facility] Overall Financial Resource Strain (CARDIA) Difficulty of Paying Living Expenses: Not hard at all Food Insecurity: No Food Insecurity (02/18/2025) Received from [facility] Hunger Vital Sign Within the past 12 months, you worried that your food would run out before you got the money to buymore.: Never true Ran Out of Food in the Last Year: Not on file Transportation Needs: No Transportation Needs (02/18/2025) Received from [facility] Transportation In the past 12 months, has lack of transportation kept you from medical appointments or from getting medications?: No Lack of Transportation (Non-Medical): Not on file Physical Activity: Inactive (06/22/2024) Received from [facility] Exercise Vital Sign Days of Exercise per Week: 0 days Minutes of Exercise per Session: 0 min Stress: Stress Concern Present (12/03/2023) Received from [facility] [place] [employer] - Occupational Stress Questionnaire Feeling of Stress : To some extent Social Connections: Moderately Isolated (12/03/2023) Received from [facility] Social Connection and Isolation Panel [NHANES] Frequency of Communication with Friends and Family: More than three times a week Frequency of Social Gatherings with Friends and Family: More than three times a week Attends Yazidism Services: Never Active Member of Clubs or Organizations: No Attends Club or Organization Meetings: Never Marital Status: Intimate Partner Violence: Not At Risk (04/26/2025) Received from [facility] Humiliation, Afraid, Rape, and Kick questionnaire Fear of Current or Ex-Partner: No Emotionally Abused: No Physically Abused: No Sexually Abused: No Housing Stability: Low Risk (02/18/2025) Received from [facility] Housing Stability Vital Sign In the last 12 months, was there a time when you were not able to pay the mortgage or rent on time?: No Number of Times Moved in the Last Year: Not on file At any time in the past 12 months, were you homeless or living in a prison (including now)?: No ROS: Gastrointestinal: denies abdominal pain, ulcers, or changes in appetite or bowel habits Musculoskeletal: positive hx of arthritis, loss of strength, with positive history of back pain Cardiovascular: denies CP, palpitations, irregular rhythms. Positive history of CHF and aortic valve replacement with blood thinner and VT in the past OBJECTIVE LE EXAM: DERM: [...] positive edema to left foot. NEURO: 5.07 [place] Truong monofilament test diminished to digits and forefoot bilaterally 125Hz tuning fork diminished to 1st MPJ bilaterally ORTHO: Positive pain on palpation to toenails of the left 1,2,3,4,5 toes and right 1,2,3,4,5 toes Flexion deformities digits 2 through 5 bilateral positive pain on palpation of right retrocalcaneal bursa and Achilles with negative palpable [place] ASSESSMENT 1. Contracture of right ankle 2. Achilles tendinitis, right leg 3. Diabetes mellitus due to underlying condition with diabetic polyneuropathy, unspecified whether long term care administrator insulin use (HCC) PLAN Patient given prescription [...] risks, alternatives, benefits, post op complications and long term care administrator expectations were discussed including but not limited to: infection,bone infection,wound dehiscence hardware failure and irritation,wound dehiscence,delay union/mal union/non union of bone. RSDS,neuroma,duty limitations,DVT/PE, VT,nerve damage, scar, loss of sensation, swelling. Pt [...] 2025 Alexis Gilmore DPM documented in this encounterCox NorthXmbatfqeio26-92-5020 History of Present illness Narrative* Teena Delcid DO - 07/12/2025 1:00 PM EDT Images from the original note were not included. Assessment/Plan Diagnoses and all orders for this visit: VH (vitreous hemorrhage), right ([facility]) - Ms. Patel has a new VH of indeterminate time in right eye (OD). Last visit [facility] was 20/25. Advised seeing retina due to considerable decline in vision. 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 Hopefully she is not dealing with a TRD. Advised prompt return to [facility]. Dry eyes - Dry Eyes OU -- Environmental changes to minimize dryness and exposure and the use of artificial tears were recommended. documented in this encounterCox NorthTjvllnacav12-63-8968 History of Present illness Narrative* Alexis Gilmore [...] procedure in the past Pt presents to [facility] for follow up tx. Patient presents [...] History: Past Medical History: Diagnosis Date A-fib ([facility]) 2022 with RVR Anxiety Aortic stenosis 06/2022 Carotid artery disease Cataract CHF (congestive heart failure) ([facility]) 06/2022 Colon polyp 2016 Diverticulitis DM (diabetes mellitus) ([facility]) HLD (hyperlipidemia) HTN (hypertension) VT (myocardial infarction) ([facility]) NSTEMI, initial episode of care ([facility]) 2022 Retinal hemorrhage Medications: Current Outpatient Medications: [...] Disp: 100 tablet, Rfl: 2 Continuous Glucose Legislative Assistant (Dexcom G7 Legislative Assistant) device, 1 Device yearly, Disp: 1 each, [...] Strain: Low Risk (02/18/2025) Received from [facility] Overall Financial Resource Strain (CARDIA) Difficulty of Paying Living Expenses: Not hard at all Food Insecurity: No Food Insecurity (02/18/2025) Received from [facility] Hunger Vital Sign Within the past 12 months, you worried that your food would run out before you got the money to buymore.: Never true Ran Out of Food in the Last Year: Not on file Transportation Needs: No Transportation Needs (02/18/2025) Received from [facility] Transportation In the past 12 months, has lack of transportation kept you from medical appointments or from getting medications?: No Lack of Transportation (Non-Medical): Not on file Physical Activity: Inactive (06/22/2024) Received from [facility] Exercise Vital Sign Days of Exercise per Week: 0 days Minutes of Exercise per Session: 0 min Stress: Stress Concern Present (12/03/2023) Received from [facility] [place] of Occupational [employer] - Occupational Stress Questionnaire Feeling of Stress : To some extent Social Connections: Moderately Isolated (12/03/2023) Received from [facility] Social Connection and Isolation Panel [NHANES] Frequency of Communication with Friends and Family: More than three times a week Frequency of Social Gatherings with Friends and Family: More than three times a week Attends Yazidism Services: Never Active Member of Clubs or Organizations: No Attends Club or Organization Meetings: Never Marital Status: Intimate Partner Violence: Not At Risk (04/26/2025) Received from [facility] Humiliation, Afraid, Rape, and Kick questionnaire Fear of Current or Ex-Partner: No Emotionally Abused: No Physically Abused: No Sexually Abused: No Housing Stability: Low Risk (02/18/2025) Received from [facility] Housing Stability Vital Sign In the last 12 months, was there a time when you were not able to pay the mortgage or rent on time?: No Number of Times Moved in the Last Year: Not on file At any time in the past 12 months, were you homeless or living in a prison (including now)?: No ROS: Gastrointestinal: denies abdominal pain, ulcers, or changes in appetite or bowel habits Musculoskeletal: positive hx of arthritis, loss of strength, with positive history of back pain Cardiovascular: denies CP, palpitations, irregular rhythms. Positive history of CHF and aortic valve replacement with blood thinner and VT in the past OBJECTIVE LE EXAM: DERM: [...] positive edema to left foot. NEURO: 5.07 [place] Truong monofilament test diminished to digits and forefoot bilaterally 125Hz tuning fork diminished to 1st MPJ bilaterally ORTHO: Positive pain on palpation to toenails of the left 1,2,3,4,5 toes and right 1,2,3,4,5 toes Flexion deformities digits 2 through 5 bilateral positive pain on palpation of right retrocalcaneal bursa and Achilles with negative palpable [place] ASSESSMENT 1. Achilles tendinitis, right leg 2. Contracture of right ankle 3. Diabetes mellitus due to underlying condition with diabetic polyneuropathy, unspecified whether long term care administrator insulin use (HCC) 4. Pain due to onychomycosis of toenails of both feet PLAN Pt to continue with ice to posterior right achilles region. Pt to take nsaids as needed PRN pain Patient returned to walking boot Discussed conservative and surgical treatment options for patient today including postoperative time frame and surgical procedure in detail. Patient may continue with conservative treatments including [id number] anti- inflammatories and other treatments suggested today. Patient may want to be s cheduled for surgical intervention in the near future. Patient have right heel Tenex procedure withAchilles tenotomy under ultrasonic guidance and [facility] for postoperative pain and sees Dr. 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 She was admitted 02/08/2024 to the [facility] with ?viral infection, weakness, low blood pressure, diarrhea and amlodipine, carvedilol, hydralazine, insulin and spironolactone were stopped. I resumed medications for hypertension on 05/10/2024. On 02/18/2025 she was admitted to [facility] with decompensated diastolic heart failure, anemia and type II NSTEMI. Cardiac catheterization did not show targets for revascula (more content not included)...[facility]07-16-2025 History of Present illness Narrative* Dale Cronin MD - 05/25/2025 11:00 AM EDT Images from the original note were not included. Diann Patel 1955 Diann Patel is a 69 y.o. female presents with chief complaint of Consult (Colonoscopy- Hx of colon polyps- Last colonoscopy was 2020 Jeannie/Regino Merrill at [facility] and she wants to have pt get an upper and lower scope done but in [place]. Pt would rather have this done here.) HPI: The patient is an 69-year-old female who presents to discuss EGD and colonoscopy. Patient has a history of anemia. She was in hospital in [place] about 3 months ago and required blood [...] (CELEXA) 20 mg, Oral, Daily Continuous Glucose Legislative Assistant (Dexcom G7 Legislative Assistant) device 1 Device, Does not apply, Yearly [...] HISTORY: Past Medical History: Diagnosis Date A-fib ([facility]) 2022 with RVR Anxiety Aortic stenosis 06/2022 Carotid artery disease Cataract CHF (congestive heart failure) ([facility]) 06/2022 Colon polyp 2016 Diverticulitis DM (diabetes mellitus) ([facility]) HLD (hyperlipidemia) HTN (hypertension) VT (myocardial infarction) ([facility]) NSTEMI, initial episode of care ([facility]) 2022 Retinal hemorrhage Social History Tobacco Use [...] colonoscopy were discussed. We will contact her hassock maker for approval to hold the Xarelto prior to the procedure. If the colonoscopy is normal, patient will not require another screening colonoscopy. documented in this encounterCox [id number] NoteAre you on Oxygen? Yes or No If yes, notify Dr. Light If yes, when do you wear it? All day, only when short of breath, only at night. How many liters are you on? Weinert Sleepiness Scale Please rate the following as [...] sleep... Acting out your dreams... Difficulty ambulating... Incontinence...[facility]06-17-2025 [facility] Gastroenterology New Patient Visit - History & [...] anemia, referred by cardiology Recently admitted to [facility] this past February 2025 w/ decompensated [...] a h/o anemia. PREVIOUS LABS/IMAGING/ENDOSCOPY: CLN 07/12/2021: [facility] Attending MD: Sae Paz MD Procedure: [...] was done by the physician, nurse and analytical laboratory technician using the patient's name, date and [...] B12/Folate/Iron studies: Lab Results Component Value Date [id number] 553 02/18/2025 FOLATE 35.0 02/18/2025 IRON 31 (L) 02/18/2025 TIBC 367 02/18/2025 UIBC 336.0 02/18/2025 IRONSAT 8 (L) 02/18/2025 FERRITIN 18.0 02/18/2025 IBD Biomarkers No results found for: CRP No results found for: SEDRATE Viral Hepatitis No results found for: HEPAIGM , HAV , HEPBSAG , HEPBSAB , HEPBEAB , HEPBIGM , HEPBCAB , HEPBCOREAB , HBVNAT , HCVSC (more content not included)...[facility]06-05-2025 History of Present illness Narrative* Johnna Cedeño ROLLER COASTER DESIGNER - 04/14/2025 1:30 PM EDT Images from [...] clopidogrel (Plavix) 75 MG tablet Continuous Glucose Legislative Assistant (Dexcom G7 Legislative Assistant) device 1 Device yearly 1 each 0 [...] Do you have a medical power of system designer?: No Objective : BP 122/62 Pulse 69 [...] 04/14/2026 Print requisition?: No 1. 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 [...] at this time. 8. Peripheral vascular disease ([facility]/HCC) This is a chronic medical condition that [...] macular edema associated withtype 2 diabetes mellitus ([facility]/HCC) This is a chronic medical condition that is stable since last assessment. No changes in treatment are suggested at this time. 12. Type 2 diabetes mellitus with hyperglycemia, with long-term current use of insulin ([facility]) Discussed today the importance of proper diabetic [...] complication, unspecified asthma severity, unspecified whether persistent ([facility]) This is a chronic medical condition that is stable since last assessment. No changes in treatment are suggested at this time. 15. Arteriosclerosis of arterial coronary artery bypass graft ([facility]) This is a chronic medical condition that is stable since last assessment. No changes in treatment are suggested at this time. 16. Estrogen deficiency Await bone density - DEXA bone density; Future 17. Chronic migraine with aura without status migrainosus, not intractable ([facility]) This is a chronic medical condition that [...] edema associated with type 2 diabetes mellitus ([facility]/HCC) This is a chronic medical condition that is stable since last assessment. No changes in treatment are suggested at this time. 20. 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 No changes in treatment are suggested at this time. 21. Bilateral carotid artery stenosis This is a chronic medical condition that is stable since last assessment. No changes in treatment are suggested at this time. 22. New onset of congestive heart failure ([facility]) This is a chronic medical condition that is stable since last assessment. No changes in treatment are suggested at this time. 23. NSTEMI (non-ST elevated myocardial infarction) ([facility]) This is a chronic medical condition that [...] exams. 26. Routine general medical examination at the [facility] facility Reviewed all relevant preventative screenings with the patient in detail. Medicare Wellness form completed and will be scanned into patient's chart. All needed testing was ordered. Will continue withyearly Medicare Wellness exams. 27. Screening for colon cancer Await colonoscopy - Ambulatory referral to General Surgery; Future Electronically signed by Johnna Cedeño NP on April 14, 2025 documented in this encounterCox [id number] History of Present illness Narrative* Alexis Gilmore [...] Past Medical History: Diagnosis Date A-fib ([facility]) 2022 with RVR Anxiety Aortic stenosis 06/2022 Carotid artery disease ([facility]) Cataract CHF (congestive heart failure) ([facility]) 06/2022 Colon polyp 2016 Diverticulitis DM (diabetes mellitus) ([facility]) HLD (hyperlipidemia) ([facility]) HTN (hypertension) ([facility]) VT (myocardial infarction) ([facility]) NSTEMI, initial episode of care ([facility]) 2022 Retinal hemorrhage Medications: [...] tablet, , Disp: , Rfl: Continuous Glucose Legislative Assistant (Dexcom G7 Legislative Assistant) device, 1 Device yearly, Disp: 1 each, [...] Strain: Low Risk (02/18/2025) Received from [facility] Overall Financial Resource Strain (CARDIA) Difficulty of Paying Living Expenses: Not hard at all Food Insecurity: No Food Insecurity (02/18/2025) Received from [facility] Hunger Vital Sign Within the past 12 months, you worried that your food would run out before you got the money to buymore.: Never true Ran Out of Food in the Last Year: Not on file Transportation Needs: No Transportation Needs (02/18/2025) Received from [facility] Transportation In the past 12 months, has lack of transportation kept you from medical appointments or from getting medications?: No Lack of Transportation (Non-Medical): Not on file Physical Activity: Inactive (06/22/2024) Received from [facility] Exercise Vital Sign Days of Exercise per Week: 0 days Minutes of Exercise per Session: 0 min Stress: Stress Concern Present (12/03/2023) Received from [facility] [place] of Occupational Health - Occupational Stress Questionnaire Feeling of Stress : To some extent Social Connections: Moderately Isolated (12/03/2023) Received from [facility] Social Connection and Isolation Panel [NHANES] Frequency of Communication with Friends and Family: More than three times a week Frequency of Social Gatherings with Friends and Family: More than three times a week Attends Yazidism Services: Never Active Member of Clubs or Organizations: No Attends Club or Organization Meetings: Never Marital Status: Intimate Partner Violence: Unknown (02/18/2025) Received from [facility] Humiliation, Afraid, Rape, and Kick questionnaire Fear of Current or Ex-Partner: No Emotionally Abused: Not on file Physically Abused: Not on file Sexually Abused: Not on file Housing Stability: Low Risk (02/18/2025) Received from [facility] Housing Stability Vital Sign In the last 12 months, was there a time when you were not able to pay the mortgage or rent on time?: No Number of Times Moved in the Last Year: Not on file At any time in the past 12 months, were you homeless or living in a prison (including now)?: No ROS: General: denies fever, [...] positive edema to left foot. NEURO: 5.07 [place] monofilament test diminished to digits and forefoot bilaterally 125Hz tuning fork diminished to 1st MPJ bilaterally ORTHO: Positive pain on palpation to toenails of the left 1,2,3,4,5 toes and right 1,2,3,4,5 toes Flexion deformities digits 2 through 5 bilateral diminished pain on palpation of right retrocalcaneal bursa and Achilles with negative palpable [place] ASSESSMENT 1. Contracture of right ankle 2. Achilles tendinitis, right leg 3. Diabetes mellitus due to underlying condition with diabetic polyneuropathy, unspecified whether longterm insulin use ([facility]) 4. Pain due to onychomycosis of toenails of both feet PLAN Pt to continue with ice to posterior right achilles region. Pt to take nsaids as needed PRN pain Discussed conservative and surgical treatment options for patient today including postoperative time frame and surgical procedure in detail. Patient may continue with conservative treatments including ptuw-yzj-zdodkzk anti- inflammatories and other treatments suggested today. [...] gear Alexis Gilmore DPM documented in this encounterCox [id number] NoteUT Cardiology - [facility] Subjective Diann Patel is a 69 y.o. year old female patient being seen for follow up heart cath at [facility]. Patient states she not taking the [...] valve stenosis ??? 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 PAF (paroxysmal [...] infarction) (CMS/HCC) ??? Coronary artery disease involving quinault heart ??? Acute anemia ??? Dry eyes [...] angioplasty. She was admitted 02/08/2024 to the [facility] with ?viral infection, weakness, low blood pressure, diarrhea and amlodipine, carvedilol, hydralazine, insulin and spironolactone were stopped. I resumed medications for hypertension on 05/10/2024. On 02/18/2025 she was admitted to [facility] with decompensated diastolic heart failure, anemia and [...] to have some edilberto (more content not included)...[facility]04-22-2025 History of Present illness Narrative* Johnna Cedeño, ROLLER COASTER DESIGNER - 03/01/2025 11:00 AM EDT Images from [...] clopidogrel (Plavix) 75 MG tablet Continuous Glucose Legislative Assistant (Dexcom G7 Legislative Assistant) device 1 Device yearly 1 each 0 [...] Past Medical History: Diagnosis Date A-fib ([facility]) 2022 with RVR Anxiety Aortic stenosis 06/2022 Carotid artery disease ([facility]) Cataract CHF (congestive heart failure) ([facility]) 06/2022 Colon polyp 2016 Diverticulitis DM (diabetes mellitus) ([facility]) HLD (hyperlipidemia) ([facility]) HTN (hypertension) ([facility]) VT (myocardial infarction) ([facility]) NSTEMI, initial episode of care ([facility]) 2022 Retinal hemorrhage Past [...] hyperglycemia, with long-term current use of insulin ([facility]) - insulin glargine (Lantus) 100 UNIT/ML pen; [...] referral to rheumatology. Vitreous hemorrhage, left eye ([facility]) This is a chronic medical condition that is stable since last assessment. No changes in treatment are suggested at this time. Vitreous hemorrhage, right eye (CMS/HCC) This is a chronic medical condition that is stable since last assessment. No changes in treatment are suggested at this time. Atherosclerosis of quinault arteries of right leg with ulceration of [...] No follow-ups on file. documented in this encounterCox [id number] NoteiMEDS - Medication Counseling Note Who received [...] Bach, PharmD Candidate Maria Victoria Quigley, ParagD [facility] Out[facility] - [facility] 03/02/25[facility]04-15-2025 NoteHospital Medicine Discharge Summary Final Discharge Diagnosis: Non-STEMI type II can [place] to acute blood loss anemia Acute on [...] chest pain. She was transferred here from [place] for NSTEMI and new onset HFrEF. Vitals remarkable for BP 140/54, HR 73, on 6L oxygen. Labs notable for peak troponin 929. EKG showed NSR with non-specific ST changes. Echo on 08/18/2023 shows EF 55 to 60%, mild TR, mild mitral stenosis, mild MR, normal bioprosthetic aortic valve with no significant valvular or paravalvular regurgitation, mild DE. Patient treated for new onset CHF with [...] to acute anemia and likely type II VT. During hospital stay, patient had an episode [...] Center 03/02/2025 2:45 PM Valente Chacon MD [facility] Your medication list START taking these [...] Medications These medications were sent to [facility] [address] [place] [address] [address] [facility] [place] [address], [facility] [address] carvedilol 12.5 mg tablet dicyclomine 10 mg capsule furosemide 40 mg tablet Informa (more content not included)...[facility] 02-22-2025 Note02/22/25 0500 Home Oxygen Therapy Evaluation [...] patient was placed on 2L nc @ [facility] NotePatient admitted to the hospital for: New onset of congestive heart failure. Chart echo from 02/21/2025 reports: EF 65 %. Current echo report does Not qualify for Cardiac Rehab services per CMS eligibility criteria. A Cardiac Rehab referral diagnosis and code must also meet CMS criteria. Palmira Ballesteros RN, BSN Cardiology Outpatient Coordinator Cardiopulmonary RehabUnSt. Rita[facility]04-14-[address] [facility]04-14-2025 Note-Patient had angiogram on which showed patent [...] overnight desaturation study - Follow-up on the echoUnSt. Rita's Hospital04-14-2025 Note- Resume home medicationsUnSt. Rita's Hospital04-14-2025 Note- In 2012UnSt. [facility]04-14-2025 Note-Anticoagulation has been on hold, continue aspirin, repeat hemoglobin daily. No apparent source of bleeding. Patient states that she had her screening colonoscopiesUnSt. Rita's Hospital04-14-2025 Note-Resume home insulin, adjust based on blood sugarsUnSt. Rita's Hospital 02-21-2025 Note- On Eliquis 5mg BID at home, rate controlled on carvedilol 25mg BID. Rate controlled here. Anticoagulation has been on hold given low hemoglobin. Patient will need to be evaluated for left atrial appendage occlusion procedure outpatientUnSt. Rita's Hospital04-14-2025 NoteHospital Medicine Daily Progress Note - 02/21/2025 10:56 AM; Room: [address] [place] [address] Admission: 02/18/2025 12:20 PM; Length of stay: 3 days THE HOSPITALIST TEAM PREFERS TO USE [employer] FOR NON-URGENT COMMUNICATION 7AM-7PM. IF I DO NOT RESPOND WITHIN 20 MINUTES OR URGENT MATTERS, PLEASE CALL THROUGH THE IT SECURITY PROJECT MANAGER. FROM 7PM-7AM, PLEASE PAGE [phone](COVR). Code Status: Full Code Barriers to Discharge: [...] the echo NSTEMI (non-ST elevated myocardial infarction) ([facility]) As above Coronary artery disease involving quinault heart As above S/P CABG x 4 - In 2012 Essential hypertension - Resume home medications PAF (paroxysmal atrial fibrillation) ([facility]) - On Eliquis 5mg BID at home, rate controlled on carvedilol 25mg BID. Rate controlled here. Anticoagulation has been on hold given low hemoglobin. Patient will need to be evaluated for left atrial appendage occlusion procedure outpatient Type 2 diabetes mellitus with hyperglycemia ([facility]) -Resume home insulin, adjust based on blood [...] Academy of Nutrition and Dietetics and the [employer] Society of Enteral and Parenteral Nutrition, meets [...] 10*3/uL 207 -- 191 (more content not included)...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04-14-2025 Note02/21/25 1011 Admission Assessment Questions Verify insurance [...] Status Interested Does the patient have a patient case coordinator assigned to them through their insurance? Yes [...] able to send link and activate MyChart? NoUnSt. Rita's Hospital04-14-2025 NoteOccupational Therapy Occupational Therapy Evaluation Patient Name: Diann Patel : 1955 Today's Date: 02/21/2025 Time In: 948 Time Out: 1000 from [place] ED with NSTEMI and concern for new onset HFrEF New onset of congestive heart failure (CMS/HCC) NSTEMI (non-ST elevated myocardial infarction) General Subjective: friendly and cooperative Patient Active Problem List Diagnosis Nonrheumatic aortic valve stenosis Coronary artery disease involving quinault 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 PAF (paroxysmal atrial [...] diabetes mellitus (CMS/HCC) Poorly controlled diabetes mellitus ([facility]/HCC) Proliferative diabetic retinopathy associated with type 2 diabetes mellitus (CMS/HCC) 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 associated with type 2 diabetes mellitus (CMS/HCC) Staphylococcal infectious disease Type 2 diabetes mellitus with hyperglycemia (CMS/[facility]) Vitreous hemorrhage of right eye ([facility]) Mechanical complication of internal orthopedic device, implant or graft Pseudophakia New onset of congestive heart failure ([facility]) NSTEMI (non-ST elevated myocardial infarction) ([facility]) Coronary artery disease involving quinault heart Acute anemia Past Medical History: Diagnosis Date A-fib ([facility]) Abnormal ECG Aortic valve stenosis Arrhythmia Coronary artery disease Diabetes mellitus ([facility]/HCC) Hypertension Peripheral vascular disease Past Surgical History: [...] Equipment: Walker rolling, Cane, Wheelchair-manual (sc, gb, [facility]) Home Layout: Two level, Full bath main level, Able to live on main level with bedroom/bathroom Home Access: Stairs to enter with rails (2) Bathroom Shower/Tub: Tub/shower unit Prior Level of Function Prior Function Level of [place]: Independent with ADLs and functional transfers, Independent [...] such as br (more content not included)... [facility]04-14-2025 NoteAdult Nutrition Assessment: Name: Diann Patel Date: 1955 Date of Visit: 02/21/25 Admission Dx: New onset of congestive heart failure ([facility]) [I50.9] Reason for assessment: high risk Information obtained from: patient and medical record Past Medical History: Diagnosis Date A-fib ([facility]) Abnormal ECG Aortic valve stenosis Arrhythmia Coronary artery disease Diabetes mellitus ([facility]) Hypertension Peripheral vascular disease Current Medications: [Held [...] toast with butter, fruit cup. Thanks! 02/21/25 0730 02/18/25 5154 Regular Diet Heart Healthy/HTN, CABG,Stroke, (2gNA, low fat, low cholesterol) Diet effective now Question Answer Comment Room Service? Yes Fat restriction: Heart Healthy/HTN, CABG,Stroke, (2gNA, low fat, low cholesterol) 02/18/25 6331 Nutrition Risk: Low Nutrition Diagnosis: No nutrition diagnosis at this time Malnutrition Assessment: Per Registered Dietitian assessment and evaluation, patient does not currently meet criteria OR there is not enough information to support the diagnosis of malnutrition per the clinical criteria set by the Academy of Nutrition and Dietetics (AND) and the Chinese Society of Enteral and Parenteral Nutrition (ASPEN). (more content not included)...[facility]04-14-2025 Note UTP CARDIOLOGY INPATIENT PROGRESS NOTE Reason [...] 0.04 12/04/2023 PLT 207 (more content not included)...[facility] 02-20-2025 Note- In 2012UnSt. Rita's Hospital04-13-2025 Note- Patient had angiogram on which [...] good urine output, would continue current diuretic doseUnSt. Rita's Hospital04-13-2025 Note-Anticoagulation has been on hold, continue aspirin, repeat hemoglobin daily. No apparent source of bleeding. Patient states that she had her screening colonoscopiesUnSt. Rita's Hospital04-13-2025 Note-Resume home insulin, adjust based on blood sugarsUnSt. Rita's Hospital 02-20-2025 Note- On Eliquis 5mg BID at home, rate controlled on carvedilol 25mg BID. Rate controlled here. Anticoagulation has been on hold given low hemoglobin. Patient will need to be evaluated for left atrial appendage occlusion procedure outpatientUnSt. Rita's Hospital04-13-2025 NoteAs aboveUnSt. Rita's Hospital04-13-2025 Note- Resume home medicationsUnSt. Rita's Hospital04-13-2025 NoteHospital Medicine Daily Progress Note - 02/20/2025 12:03 PM; Room: [address] [place], [place] [address]- Admission: 02/18/2025 12:20 PM; Length of stay: 2 days THE HOSPITALIST TEAM PREFERS TO USE [employer] CHAT FOR NON-URGENT COMMUNICATION 7AM-7PM. IF I DO NOT RESPOND WITHIN 20 MINUTES OR URGENT MATTERS, PLEASE CALL THROUGH THE IT SECURITY PROJECT MANAGER. FROM 7PM-7AM, PLEASE PAGE [phone](COVR). Code Status: Full Code Barriers to Discharge: [...] diuretic dose NSTEMI (non-ST elevated myocardial infarction) ([facility]) As above Coronary artery disease involving quinault heart As above S/P CABG x 4 - In 2012 Essential hypertension - Resume home medications PAF (paroxysmal atrial fibrillation) ([facility]) - On Eliquis 5mg BID at home, rate controlled on carvedilol 25mg BID. Rate controlled here. Anticoagulation has been on hold given low hemoglobin. Patient will need to be evaluated for left atrial appendage occlusion procedure outpatient Type 2 diabetes mellitus with hyperglycemia ([facility]) -Resume home insulin, adjust based on blood [...] Academy of Nutrition and Dietetics and the Chinese Society of Enteral and Parenteral Nutrition, meets [...] mmol/L 4.4 4.5 CHLORID (more content not included)...[facility] 02-20-2025 NoteUTP CARDIOLOGY INPATIENT PROGRESS NOTE Reason [...] CV Testing: Encounter Date: (more content not included)...[facility]04-12-2025 Note- On Eliquis 5mg BID at home, rate controlled on carvedilol 25mg BID. Rate controlled here. Anticoagulation has been on hold given low hemoglobin. Patient will need to be evaluated for left atrial appendage occlusion procedure outpatientUnSt. Rita's Hospital04-12-2025 NoteAs aboveUnSt. Rita's Hospital04-12-2025 Note-Anticoagulation has been on hold, continue aspirin, repeat hemoglobin daily. No apparent source of bleeding. Patient states that she had her screening colonoscopiesUnSt. Rita's Hospital04-12-2025 Note- Resume home medicationsUnSt. Rita's Hospital04-12-2025 Note-Patient had angiogram yesterday which showed [...] needed. At home she does not use oxygenUnSt. Rita's Hospital 02-19-2025 Note-Resume home insulin, adjust based on blood sugarsUnSt. Rita's Hospital04-12-2025 Note- In 2012UnSt. Rita's Hospital 02-19-2025 NoteHospital Medicine Daily Progress Note - 02/19/2025 11:53 AM; Room: [address] [place] [address] Admission: 02/18/2025 12:20 PM; Length of stay: 1 days THE HOSPITALIST TEAM PREFERS TO USE [employer] FOR NON-URGENT COMMUNICATION 7AM-7PM. IF I DO NOT RESPOND WITHIN 20 MINUTES OR URGENT MATTERS, PLEASE CALL THROUGH THE IT SECURITY PROJECT MANAGER. FROM 7PM-7AM, PLEASE PAGE [phone](COVR). Code Status: Full Code Barriers to Discharge: [...] use oxygen NSTEMI (non-ST elevated myocardial infarction) ([facility]) As above Coronary artery disease involving quinault heart As above S/P CABG x 4 - In 2012 Essential hypertension - Resume home medications PAF (paroxysmal atrial fibrillation) ([facility]) - On Eliquis 5mg BID at home, rate controlled on carvedilol 25mg BID. Rate controlled here. Anticoagulation has been on hold given low hemoglobin. Patient will need to be evaluated for left atrial appendage occlusion procedure outpatient Type 2 diabetes mellitus with hyperglycemia ([facility]) -Resume home insulin, adjust based on blood [...] Academy of Nutrition and Dietetics and the Chinese Society of Enteral and Parenteral Nutrition, meets [...] 4.4 4.5 CHLORIDE mmol (more content not included)...[facility] 02-19-2025 NoteUTP CARDIOLOGY INPATIENT PROGRESS NOTE Reason [...] 02/19/2025 CALCIUM 8.3 (L (more content not included)...[facility] 02-18-2025 NoteCardiology Coronary angiogram shows stable CAD Labs show Hb 7.3 This is a drop compared to baseline In light of these findings, the elevated troponin is a Type II VT secondary to anemia Plan: Please transfuse 2 U PRBC Aim for Hb > 9 g/dL given CAD with elevated troponin Stop eliquis Stop plavix Maintain aspirin 81 mg daily for CAD Outpatient Watchman evaluationUnSt. Rita's Hospital04-11-2025 Note Patient: Diann Patel Procedure Information Date/Time: 02/18/251826 Procedure: Coronary angiography Location: [facility] [employer] ADMINISTRATOR 3 / [facility] (Cath) Providers: Valente Chacon MD [...] who consented to blood products. Additional Equipment RequestsMercy Health St. Anne Hospital04-11-2025 Note Case was discussed with the RAMY [...] patient currently on heparin drip Sam Arita MDMercy Health St. Anne Hospital04-11-2025 Note- follow up anemia workup, possibly iatrogenic from recurrent blood draws over past 12 hours, but she is on eliquis/plavix at home. Follow up stool guaiac, b12, ferritin, folate, and tibc. - Will transfuse 1U in setting of ACS to maintain hgb >8. Lasix 40mg after unit. [facility]04-11-2025 Note- On Eliquis 5mg BID at home, rate controlled on carvedilol 25mg BID. Rate controlled hereUnSt. Rita's Hospital04-11-2025 Note- acutely decompensated w elevated trop. Hx of diastolic HF. Concern that this decompensation is 2/2 VT. - Sodium restricted diet - Lasix 40mg IV BID x2 doses, reassess in AM.[facility] 02-18-2025 Note- On regular insulin 10U w meals at home. Start sliding scale here. - On 80U nightly of lantus. Reduce to 20U tonight. Will be NPOUnSt. Rita's Hospital04-11-2025 Note- In 2012UnSt. Rita's Hospital 02-18-2025 Note- Resume home medicationsUnSt. Rita's Hospital 02-18-2025 Note- Heparin gtt - Trend trops/EKGs - Cardiology following' - NPO at midnight for cath in AM - SL nitroglycerin prnUnSt. Rita's Hospital04-11-2025 Note- Has been compliant on plavix/statinUnSt. Rita's Hospital04-11-2025 NoteHospital Medicine History and Physical 02/18/2025 2:33 PM THE HOSPITALIST TEAM PREFERS TO USE [employer] CHAT FOR NON-URGENT COMMUNICATION 7AM-7PM. IF I DO NOT RESPOND WITHIN 20 MINUTES OR URGENT MATTERS, PLEASE CALL THROUGH THE IT SECURITY PROJECT MANAGER. FROM 7PM-7AM, PLEASE PAGE [phone](COVR). Chief Complaint No chief complaint on file. History of Present Illness Diann Patel is an 69 y.o. female w a PMH of CAD s/p CABG x4 in 2012, IDDM2, HTN, and diastolic HF who came from [place] ED with NSTEMI and concern for new onset HFrEF. Patient reports all was well yesterday but that she woke up this morning acutely short of breath. She denies associated CP, N/V, diaphoresis, pain to the jaw or shoulder, palpitations, or dyspepsia. At [place] she was requiring Bipap to maintain O2 [...] Plan New onset of congestive heart failure ([facility]/HCC) - acutely decompensated w elevated trop. Hx of diastolic HF. Concern that this decompensation is 2/2 VT. - Sodium restricted diet - Lasix 40mg IV BID x2 doses, reassess in AM. NSTEMI (non-ST elevated myocardial infarction) (CMS/HCC) - Heparin gtt - Trend trops/EKGs - Cardiology following' - NPO at midnight for cath in AM - SL nitroglycerin prn Coronary artery disease involving quinault heart - Has been compliant on plavix/statin S/P CABG x 4 - In 2012 Essential hypertension - Resume home medications PAF (paroxysmal atrial fibrillation) ([facility]) - On Eliquis 5mg BID at home, rate controlled on carvedilol 25mg BID. Rate controlled here Type 2 diabetes mellitus with hyperglycemia ([facility]) - On regular insulin 10U w meals [...] VTE Prophylaxis: IV heparin (more content not included)...[facility]04-09-2025 [place] [id number] Discharge Summary Signed Patient: Diann Patel MR#: [id number] : 1955 Acct:[id number] Age/Sex: 69 / F Adm Date: 5 Loc: 3T Room: 4A5311-[address]: Edvin Casper MD Copies to: [...] 7 to 10 days. She was recommended cezb-vot-xufjlhb treatments for her abdominal discomfort, as this [...] Continuity of Care Document Health Concerns: A [facility] screening has identified you as FRAIL [...] Strong:Four Ways to Beat the Frailty Risk [email or web address]/st ot-sgoiuq-rbyf- mxsx-ne-kifd-oai-qtpljzu-gspa Exam Physical Exam Vital Signs: Temp Pulse [...] % (Auto) 57.2, Lymph % (Auto) 25.6, [place] % (Auto) 12.6, Eos % (Auto) 3.3, Baso % (Auto) 1.3, Nucleat RBC Rel Count 0.0, Neut # (Auto) 5.0, Lymph # (Auto) 2.3, [place] # (Auto) 1.1 H, Eos # (Auto) 0.3, Baso # (Auto) 0.1, PHA CreatinineClear 36.01, Sodium 137, Potassium 4.9, Chloride 105, Carbon Dioxide 26.2, Anion Gap 10.7, BUN 48 H, Creatinine 1.44 H, Est GFR (CKD-EPI) 39.128, Glucose 142 H D, Estimat Average Glucose 194, Hemoglobin A1c 8.4 H, Calcium 8.3 L, Iron 45 L, TIBC 433, Iron Saturation 10.4 L, Transferrin 309, Jydhjssc98.5, Total Bilirubin 0.3, AST 17, ALT 15, [...] Appearance Clear, Urine pH 5.0, Ur Specific [place] 1.044H, Urine Protein Negative, Urine Glucose (UA) [...] Neut % (Auto) 65.2, Lymph % (Auto)21.3, [place] % (Auto) 9.1, Eos % (Auto) 3.4, Baso % (Auto) 1.0, Nucleat RBC Rel Count 0.0, Neut # (Auto) 6.9, Lymph # (Auto) 2.3, [place] # (Auto) 1.0 H, Eos # (Auto) 0.4, Baso # (Auto) 0.1, Monocyte DistWidth 18.23, PHA Creatinine Clear 36.12, Sodium 132 L, Potassium 5.2 H, Chloride 98, Carbon Laeines09.8, Anion Gap 13.4, BUN 42 H, Creatinine [...] MD 5 1243 Signed By: 02/16/25 1303 [facility]04-09-2025 Radiology Diagnostic study note [facility] Main [place] [address] [place] [address] Ultrasound Report Signed Patient: Diann Patel MR#: [id number] : 1955 Acct:[id number] Age/Sex: 69 / F ADM Date: 5 Loc: 3T Room: [address] [place] [address] Type: ADM INOo Attending Dr: Edvin Casper [...] Erwin Jr., D.O.02/16/2025 8:26 AM Dictation Location: [place] [address] Tech: nAa Maria Valdovinos Transcribed By: JOSUE 02/16/25825 Dictated By: Julio Cesar Erwin Jr, DO 02/16/25824 Signed By: 02/16/25825 [facility]04-09-2025 History and physical note Author Edvin Casper [facility] HospitalNote Date/TimeApril 2024 10:23pm[place] [address] Hospitalist H&P Signed Patient: Diann Patel MR#: [id number] : 1955 Acct:[id number] Age/Sex: 69 / F Adm Date: 5 Loc: Room: [address] [place] [address] Type: ADM INOo Attending Dr: Edvin Casper [...] coming back from an eye appointment in [facility] when she started having right upper quadrant abdominal pain that came on all of a sudden, was sharp and increased to a 10/10 level very quickly. Patientdoes not normally follow-up here with her medical care. She presented to the [facility] urgent care, but she was too [...] thus they decided to call squad from [facility] urgent care parking lot. She [...] that which is noted above in the [facility] Medical History (Updated 02/15/25 @ 22:23 by [...] clean-up per [facility] Phys[facility] H/O: hysterectomy Hx of aortic valve replacement 09/2022 Problem List clean-up per request of Phys. [facility] H/O heart artery stent 2022 Problem List clean-up per request of Phys. [facility] History of appendectomy Problem List clean-up per request of Phys. [facility] Hx of hernia repair Problem List clean-up per request of Phys. [facility]HR [facility] History of heart bypass surgery 2012 Problem List clean-up per request of Phys. [facility] History of tonsillectomy Problem List clean-up per [...] % (Auto) 21.3 % (.) 02/15/25 14:30 [place] % (Auto) 9.1 % (.) 02/15/25 14:30 Eos % (Auto) 3.4 % (.) 02/15/25 14:30 Baso % (Auto) 1.0 % (.) 02/15/25 14:30 Nucleat RBC Rel Count 0.0 /100 WBC (0-0.5) 02/15/25 14:30 Neut # (Auto) 6.9 x10E3/uL (1.8-7.7) 02/15/25 14:30 Lymph # (Auto) 2.3 x10E3/uL (1.00-4.8) 02/15/25 14:30 [place] # (Auto) 1.0 x10E3/uL (0.0-0.8) H 02/15/25 [...] <Electronically signed by Edvin Casper MD> 02/15/254 [facility] Work Phone: 1(289) 939-774404-08-2025 [place] [address] Hospitalist H&P Signed Patient: Diann Patel MR#: [id number] : 1955 Acct:[id number] Age/Sex: 69 / F Adm Date: 5 Loc: Room: [address] [place] [address] Type: ADM INOo Attending Dr: Edvin Casper [...] coming back from an eye appointment in [facility] when she started having right upper quadrant abdominal pain that came on all of a sudden, was sharp and increased to a 10/10 level very quickly. Patientdoes not normally follow-up here with her medical care. She presented to the [facility] urgent care, but she was too [...] thus they decided to call squad from [facility] urgent care parking lot. She [...] that which is noted above in the [facility] Medical History (Updated 02/15/25 @ 22:23 by [...] % (Auto) 21.3 % (.) 02/15/25 14:30 [place] % (Auto) 9.1 % (.) 02/15/25 14:30 Eos % (Auto) 3.4 % (.) 02/15/25 14:30 Baso % (Auto) 1.0 % (.) 02/15/25 14:30 Nucleat RBC Rel Count 0.0 /100 WBC (0-0.5) 02/15/25 14:30 Neut # (Auto) 6.9 x10E3/uL (1.8-7.7) 02/15/25 14:30 Lymph # (Auto) 2.3 x10E3/uL (1.00-4.8) 02/15/25 14:30 [place] # (Auto) 1.0 x10E3/uL (0.0-0.8) H 02/15/25 [...] Edvin Casper MD 2110 Signed By: 02/15/252222 [facility]04-08-2025 Evaluation note* Diagnosis Onset Date Resolution Status Admit Date Abdominal pain acuteApril 2024 6:24pmWeaknessacuteApril 2024 6:24pm [facility] Work Phone: 1(801) 233-722604-08-2025 Radiology [facility] [place] [address] CT Scan Report Signed Patient: Diann Patel MR#: [id number] : 1955 Acct:[id number] Age/Sex: 69 / F ADM Date: 5 Loc: 3T Room: [address] [place] [address] Type: ADM INOo Attending Dr: Edvin Casper MD Copies to: MD Ross Higgins PRODUCT ADVISOR~ Ordering Provider: Ross Martinez APRN Date of [...] Manjula Flannery M.D.02/15/2025 4:03 PM Dictation Location: [place] [address] Transcribed By: JOSUE 02/15/25 1609 Dictated By: Manjula Flannery MD 02/15/25 1554 Signed By: 02/15/25 1606 [facility] Work Phone: 1(156) 739-405804-08-2025 Discharge summary Author Edvin Casper [facility] HospitalNote Date/TimeApril 2024 1:03pmDaniel Ville [id number] Discharge Summary Signed Patient: Diann Patel MR#: [id number] : 1955 Acct:[id number] Age/Sex: 69 / F Adm Date: 5 Loc: Room: [address] [place] [address]: Edvin Casper MD Copies to: [...] 7 to 10 days. She was recommended osbs-hjf-ibxkxgb treatments for her abdominal discomfort, as this [...] Continuity of Care Document Health Concerns: A [facility] screening has identified you as FRAIL [...] Strong:Four Ways to Beat the Frailty Risk [email or web address] la-kfnywb-ftkr- okzc-zj-ivmm-zel-kamhwow-puja Exam Physical Exam Vital Signs: Temp Pulse [...] % (Auto) 57.2, Lymph % (Auto) 25.6, [place] % (Auto) 12.6, Eos % (Auto) 3.3, Baso % (Auto) 1.3, Nucleat RBC Rel Count 0.0, Neut # (Auto) 5.0, Lymph # (Auto) 2.3, [place] # (Auto) 1.1 H, Eos # (Auto) 0.3, Baso # (Auto) 0.1, PHA CreatinineClear 36.01, Sodium 137, Potassium 4.9, Chloride 105, Carbon Dioxide 26.2, Anion Gap 10.7, BUN 48 H, Creatinine 1.44 H, Est GFR (CKD-EPI) 39.128, Glucose 142 H D, Estimat Average Glucose 194, Hemoglobin A1c 8.4 H, Calcium 8.3 L, Iron 45 L, TIBC 433, Iron Saturation 10.4 L, Transferrin 309, Ihmreuxi30.5, Total Bilirubin 0.3, AST 17, ALT 15, [...] Appearance Clear, Urine pH 5.0, Ur Specific [place] 1.044H, Urine Protein Negative, Urine Glucose (UA) [...] Neut % (Auto) 65.2, Lymph % (Auto)21.3, [place] % (Auto) 9.1, Eos % (Auto) 3.4, Baso % (Auto) 1.0, Nucleat RBC Rel Count 0.0, Neut # (Auto) 6.9, Lymph # (Auto) 2.3, [place] # (Auto) 1.0 H, Eos # (Auto) 0.4, Baso # (Auto) 0.1, Monocyte DistWidth 18.23, PHA Creatinine Clear 36.12, Sodium 132 L, Potassium 5.2 H, Chloride 98, Carbon Synfbbc71.8, Anion Gap 13.4, BUN 42 H, Creatinine [...] signed by Edvin Casper MD> 02/16/25 1303 [facility] Work Phone: [phone]) 890-803304-08-2025 NoteRight Eye Quality was good. Scan locations included subfoveal. Progression has been stable. Findings include normal observations. Left Eye Quality was good. Scan locations included subfoveal. Progression has been stable. Findings include normal observations. Notes Good scan with normal appearanceCox [id number] History of Present illness Narrative* Teena Delcid, [...] (OD). Stable. - sees ANGEL Hernandez in [place] for antiVEGF both eyes (OU). - Diabetes [...] artificial tears were recommended. documented in this encounterCox [id number] Telephone encounter Note* Telephone Encounter - FAITH Holcomb - 02/03/2025 11:09 AM EDT Dexcom sensor sent. NOMS [id number] Miscellaneous Notes* Telephone Encounter - FAITH Holcomb - 02/03/2025 11:09 AM EDT Dexcom sensor sent. 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 Bilateral. 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 Patient denies any [...] [facility] Work Phone: [phone] Instructions* Date Instruction Additional Infor dimple Impression/Plan [...] of right eye [facility] Work Phone: [phone] History of Present illness Narrative* Johnna Cedeño, [...] chasity is being taken. She sees a chief librarian branch or department.Eye exam is current (had cataract surgery). Current [...] (ten) days 3 each 11 Continuous Glucose Legislative Assistant (Dexcom G7 Legislative Assistant) device 1 Device yearly 1 each 0 [...] Other Past Medical History: Diagnosis Date A-fib ([facility]) 2022 with RVR Anxiety Aortic stenosis 06/2022 Carotid artery disease ([facility]) Cataract CHF (congestive heart failure) ([facility]) 06/2022 Colon polyp 2016 Diverticulitis DM (diabetes mellitus) ([facility]) HLD (hyperlipidemia) ([facility]) HTN (hypertension) ([facility]) [place] (myocardial infarction) ([facility] NSTEMI, initial episode of care ([facility]) 2022 Retinal hemorrhage Past [...] orders for this visit: Paroxysmal atrial fibrillation ([facility]) - dabigatran etexilate (Pradaxa) 150 MG capsule; [...] patient in getting this medication. 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 [...] No follow-ups on file. documented in this encounterCox [id number] History of Present illness Narrative* Alexis Gilmore, [...] History: Past Medical History: Diagnosis Date A-fib ([facility]) 2022 with RVR Anxiety Aortic stenosis 06/2022 Carotid artery disease ([facility]) Cataract CHF (congestive heart failure) ([facility]) 06/2022 Colon polyp 2016 Diverticulitis DM (diabetes mellitus) ([facility]) HLD (hyperlipidemia) ([facility]) HTN (hypertension) ([facility]) VT (myocardial infarction) ([facility]) NSTEMI, initial episode of care ([facility]) 2022 Retinal hemorrhage Medications: [...] Disp: 3 each, Rfl: 11 Continuous Glucose Legislative Assistant (Dexcom G7 Legislative Assistant) device, 1 Device yearly, Disp: 1 each, [...] Resource Strain: Low Risk (06/22/2024) Received from [facility] Overall Financial Resource Strain (CARDIA) Difficulty of Paying Living Expenses: Not hard at all Food Insecurity: No Food Insecurity (12/03/2023) Received from [facility], [facility], [facility] Hunger Vital Sign Within the past 12 months, you worried that your food would run out before you got the money to buymore.: Never true Within the past 12 months, the food you bought just didn't last and you didn't have money to get more.: Never true Transportation Needs: No Transportation Needs (06/22/2024) Received from [facility] PRAPARE - Transportation Lack of Transportation (Medical): No Lack of Transportation (Non-Medical): No Physical Activity: Inactive (06/22/2024) Received from [facility] Exercise Vital Sign Days of Exercise per Week: 0 days Minutes of Exercise per Session: 0 min Stress: Stress Concern Present (12/03/2023) Received from [facility], [facility] [place] of Occupational Health - Occupational Stress Questionnaire Feeling of Stress : To some extent Social Connections: Moderately Isolated (12/03/2023) Received from [facility], [facility] Social Connection and Isolation Panel [NHANES] Frequency of Communication with Friends and Family: More than three times a week Frequency of Social Gatherings with Friends and Family: More than three times a week Attends Yazidism Services: Never Active Member of Clubs or Organizations: No Attends Club or Organization Meetings: Never Marital Status: Intimate Partner Violence: Not At Risk (12/03/2023) Received from [facility], [facility] Humiliation, Afraid, Rape, and Kick questionnaire Fear of Current or Ex-Partner: No Emotionally Abused: No Physically Abused: No Sexually Abused: No Housing Stability: Low Risk (06/22/2024) Received from [facility] Housing Stability Vital Sign Unable to [...] positive edema to left foot. NEURO: 5.07 [place] Truong monofilament test diminished to digits and forefoot bilaterally 125Hz tuning fork diminished to 1st MPJ bilaterally ORTHO: Positive pain on palpation to toenails of the left 1,2,3,4,5 toes and right 1,2,3,4,5 toes Flexion deformities digits 2 through 5 bilateral Positive pain on palpation of right retrocalcaneal bursa and Achilles with negative palpable [place] ASSESSMENT 1. Heel spur, right 2. Achilles [...] Patient may continue with conservative treatments including dnkd-vks-inhfvuq anti- inflammatories and other treatments suggested today. Patient may want to be s cheduled for surgical intervention in the near future. Discussed possible Tenex procedure with right Achilles surgery in the future and possible physical therapy and discussed physical therapy needs detail and will reassess in 2 weeks Alexis Gilmore DPM documented in this encounterCox [id number] NoteUT Cardiology - [facility] Subjective Diann Patel is a 69 y.o. year old female patient being seen for 4 mo follow up CAD, PAF, PAD, and aortic valve stenosis s/p TAVR. Had labs a few days ago. Denies chest pain, SOB, palpitations, and bleeding on Eliquis. Patient Active Problem List Diagnosis Nonrheumatic aortic valve stenosis Coronary artery disease involving quinault 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 (CMS/HCC) PAF (paroxysmal [...] angioplasty. She was admitted 02/08/2024 to the [facility] with ?viral infection, weakness, low blood pressure, [...] on the left side (more content not included)...[facility]01-30-2025 History of Present illness Narrative* Alexis [...] History: Past Medical History: Diagnosis Date A-fib ([facility]) 2022 with RVR Anxiety Aortic stenosis 06/2022 Carotid artery disease ([facility] Cataract CHF (congestive heart failure) ([facility] 06/2022 Colon polyp 2016 Diverticulitis DM (diabetes mellitus) ([facility] HLD (hyperlipidemia) ([facility]) HTN (hypertension) ([facility]) VT (myocardial infarction) ([facility]) NSTEMI, initial episode of care ([facility]) 2022 Retinal hemorrhage Medications: [...] Disp: 3 each, Rfl: 11 Continuous Glucose Legislative Assistant (Dexcom G7 Legislative Assistant) device, 1 Device yearly, Disp: 1 each, [...] Resource Strain: Low Risk (06/22/2024) Received from [facility] Overall Financial Resource Strain (CARDIA) Difficulty of Paying Living Expenses: Not hard at all Food Insecurity: No Food Insecurity (12/03/2023) Received from [facility], [facility], [facility] Hunger Vital Sign Within the past 12 months, you worried that your food would run out before you got the money to buymore.: Never true Within the past 12 months, the food you bought just didn't last and you didn't have money to get more.: Never true Transportation Needs: No Transportation Needs (06/22/2024) Received from [facility] PRAPARE - Transportation Lack of Transportation (Medical): No Lack of Transportation (Non-Medical): No Physical Activity: Inactive (06/22/2024) Received from [facility] Exercise Vital Sign Days of Exercise per Week: 0 days Minutes of Exercise per Session: 0 min Stress: Stress Concern Present (12/03/2023) Received from [facility], [facility] [place] of Occupational Health - Occupational Stress Questionnaire Feeling of Stress : To some extent Social Connections: Moderately Isolated (12/03/2023) Received from [facility], [facility] Social Connection and Isolation Panel [NHANES] Frequency of Communication with Friends and Family: More than three times a week Frequency of Social Gatherings with Friends and Family: More than three times a week Attends Yazidism Services: Never Active Member of Clubs or Organizations: No Attends Club or Organization Meetings: Never Marital Status: Intimate Partner Violence: Not At Risk (12/03/2023) Received from [facility], [facility] Humiliation, Afraid, Rape, and Kick questionnaire Fear of Current or Ex-Partner: No Emotionally Abused: No Physically Abused: No Sexually Abused: No Housing Stability: Low Risk (06/22/2024) Received from [facility] Housing Stability Vital Sign Unable to [...] positive edema to left foot. NEURO: 5.07 [place] Truong monofilament test diminished to digits and forefoot bilaterally 125Hz tuning fork diminished to 1st MPJ bilaterally ORTHO: Positive pain on palpation to toenails of the left 1,2,3,4,5 toes and right 1,2,3,4,5 toes Flexion deformities digits 2 through 5 bilateral Positive pain on palpation of right retrocalcaneal bursa and Achilles with negative palpable [place] DIAGNOSTIC US REPORT: Verbal order for ultrasound [...] underlying condition with diabetic polyneuropathy, unspecified whether longterm insulin use ([facility]) 3. Pain due to onychomycosis of toenails of both feet 4. Onychomycosis 5. PVD (peripheral vascular disease) ([facility]) 6. Achilles tendinitis, right leg 7. Contracture [...] consented. Alexis Gilmore DPM documented in this [facility]12-12-2024 Evaluation note* Type Assessment Date assessment [...] ation), bilateral: H26.493 [employer] Work Phone: 1(896) 901-574412-06-2024 History of Present illness Narrative* Teena Delcid DO - 10/15/2024 10:15 AM EST Images from the original note were not included. Assessment/Plan Diagnoses and all orders for this visit: Pseudophakia - s/p CE OS (1mth): Patient should be close to off all post-op meds. Pt. received final refraction for this eye today. documented in this [facility]11-21-2024 History of Present illness Narrative* FAITH [...] (ten) days 3 each 11 Continuous Glucose Legislative Assistant (Dexcom G7 Legislative Assistant) device 1 Device yearly 1 each 0 [...] Past Medical History: Diagnosis Date A-fib ([facility]) 2022 with RVR Anxiety Aortic stenosis 06/2022 Carotid artery disease ([facility]) Cataract CHF (congestive heart failure) ([facility]) 06/2022 Colon polyp 2016 Diverticulitis DM (diabetes mellitus) ([facility]) HLD (hyperlipidemia) ([facility]) HTN (hypertension) ([facility]) VT (myocardial infarction) ([facility]) NSTEMI, initial episode of care ([facility]) 2022 Retinal hemorrhage Past [...] vaccination - Influenza, high-dose seasonal, quadrivalent, PF (VQC774) (Fluzone High Dose [place] 0.7mL dose) Afebrile today, and all recent symptoms resolved or improving. Provided pt with Flu shot today. Shetolerated this well. Hypotension, unspecified hypotension type Encouraged pt to increase her water intake. Reach out to Cardiology if bottom number of BP runs low Follow up in about 3 months (around 12/31/2024) for Diabetes. documented in this encounterCox [id number] History of Present illness Narrative* Alexis Gilmore, [...] states she had improvement from seeing this [facility] doctors with intervention and has follow up in the near future Patient was seen in [place] for vascular intervention in the past with hx of DM2 and PVD Patient states continued pain to the region and was to follow up with vascular surgeon at the [facility] and states that she did follow [...] Past Medical History: Diagnosis Date A-fib ([facility]) 2022 with RVR Anxiety Aortic stenosis 06/2022 Carotid artery disease ([facility]) Cataract CHF (congestive heart failure) ([facility] 06/2022 Colon polyp 2016 Diverticulitis DM (diabetes mellitus) ([facility] HLD (hyperlipidemia) ([facility]) HTN (hypertension) ([facility]) VT (myocardial infarction) ([facility]) NSTEMI, initial episode of care ([facility]) 2022 Retinal hemorrhage Medications: [...] Disp: 3 each, Rfl: 11 Continuous Glucose Legislative Assistant (Dexcom G7 Legislative Assistant) device, 1 Device yearly, Disp: 1 each, [...] Resource Strain: Low Risk (06/22/2024) Received from [facility] Overall Financial Resource Strain (CARDIA) Difficulty of Paying Living Expenses: Not hard at all Food Insecurity: No Food Insecurity (12/03/2023) Received from [facility], [facility], [facility] Hunger Vital Sign Within the past 12 months, you worried that your food would run out before you got the money to buymore.: Never true Within the past 12 months, the food you bought just didn't last and you didn't have money to get more.: Never true Transportation Needs: No Transportation Needs (06/22/2024) Received from [facility] PRAPARE - Transportation Lack of Transportation (Medical): No Lack of Transportation (Non-Medical): No Physical Activity: Inactive (06/22/2024) Received from [facility] Exercise Vital Sign Days of Exercise per Week: 0 days Minutes of Exercise per Session: 0 min Stress: Stress Concern Present (12/03/2023) Received from [facility], [facility] [place] of Occupational Health - Occupational Stress Questionnaire Feeling of Stress : To some extent Social Connections: Moderately Isolated (12/03/2023) Received from [facility], [facility] Social Connection and Isolation Panel [NHANES] Frequency of Communication with Friends and Family: More than three times a week Frequency of Social Gatherings with Friends and Family: More than three times a week Attends Yazidism Services: Never Active Member of Clubs or Organizations: No Attends Club or Organization Meetings: Never Marital Status: Intimate Partner Violence: Not At Risk (12/03/2023) Received from [facility], [facility] Humiliation, Afraid, Rape, and Kick questionnaire Fear of Current or Ex-Partner: No Emotionally Abused: No Physically Abused: No Sexually Abused: No Housing Stability: Low Risk (06/22/2024) Received from [facility] Housing Stability Vital Sign Unable to [...] positive edema to left foot. NEURO: 5.07 [place] Truong monofilament test diminished to digits and forefoot bilaterally 125Hz tuning fork diminished to 1st MPJ bilaterally ORTHO: Positive pain on palpation nails 1 through 10 Flexion deformities digits 2 through 5 bilateral ASSESSMENT 1. Dry gangrene ([facility]) 2. PVD (peripheral vascular disease) ([facility]) 3. Diabetes mellitus due to underlying condition with diabetic polyneuropathy, unspecified whether longterm insulin use ([facility]) 4. Pain due to onychomycosis of toenails [...] gear. Alexis Gilmore DPM documented in this encounterCox [id number] History of Present illness Narrative* Johnna Cedeño, [...] (ten) days 3 each 11 Continuous Glucose Legislative Assistant (Dexcom G7 Legislative Assistant) device 1 Device yearly 1 each 0 [...] Past Medical History: Diagnosis Date A-fib ([facility]) 2022 with RVR Anxiety Aortic stenosis 06/2022 Carotid artery disease ([facility]) Cataract CHF (congestive heart failure) ([facility] 06/2022 Colon polyp 2016 Diverticulitis DM (diabetes mellitus) ([facility] HLD (hyperlipidemia) ([facility]) HTN (hypertension) ([facility]) VT (myocardial infarction) ([facility]) NSTEMI, initial episode of care ([facility]) 2022 Retinal hemorrhage Past [...] orders for this visit: Acute asthmatic bronchitis ([facility]) - levoFLOXacin (Levaquin) 500 MG tablet; Take [...] hyperglycemia, with long-term current use of insulin ([facility]) - POCT Glycated hemoglobin, total - insulin [...] No follow-ups on file. documented in this [facility]10-29-2024 History of Present illness Narrative* Teena [...] vision, questions or concerns. documented in this [facility]10-22-2024 History of Present illness Narrative* Teena [...] different lens options were explained including the [id number] fees for any upgrades. Intraocular lens (IOL) [...] Extremities: no pitting edema. documented in this encounterCox [id number] NotePatient here for 3 mo follow up aortic valve stenosis s/p TAVR, CAD, PAF, and PAD. She underwent vascular surgery at in Jun 2024. No labs since then. Denies chest pain, SOB, palpitations, and bleeding on Eliquis. Review of Systems Cardiovascular: Positive for leg swelling (LLE, resolves by morning). Neurological: Positive for numbness. All other systems reviewed and are negative.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09-10-2024 History of Present illness Narrative* Micheal Nova, PRODUCT ADVISOR-SAXOPHONE TEACHER - 07/20/2024 3:30 PM EDT Images from the original note were not included. [facility] Note Referring Provider: Noe Conklin DO PCP: No primary care provider on file. Clinical Data Programmer: Alexis Gilmore DPM CC: 1 month post [...] History: 12/04/23: LLE angiogram, jet stream atherectomy, ROOM SERVICE FOOD SERVER and stenting of SFA/pop (Dr. Padilla) for [...] 07/20/2024 Patient Name: DIANN PATEL Reading Physician: [id number] Nury Blackwell MD, RPVI Study Date: 07/20/2024 Ordering Physician: [id number] TERRI SOSA MRN/PID: [id number] Technologist: Chanda Martinez RVT Technologist 2: Date of /Age: 8 1955 / 69 years Gender: F Admission Status: Outpatient Location Performed: [facility] Diagnosis/ICD: Peripheral vascular disease, unspecified-I73.9 CPT Codes: 85240 Peripheral artery BRIDGER Only CONCLUSIONS: Right Lower [...] Left Brachial Pressure 175 mmHg 184 mmHg [id number] Nury Blackwell MD, RPVI Assessment/Plan Diann Patel [...] if needed ESTELLA Strong documented in this [facility]Ohio[facility] Work Phone: 1(534) 493-530909-10-2024 Instructions* Patient Instructions* ESTELLA Strong - 07/20/2024 3:30 PM EDT Thank you for coming to see us in the [facility] [place] today. We have reviewed your vascular testing [...] concerns please give us a call at [phone] option 1 documented in this encounterOhioHealth [facility] Work Phone: [phone]) 477-771709-03-2024 History of Present illness Narrative* Teena Delcid, [...] (ten) days 3 each 11 Continuous Glucose Legislative Assistant (Dexcom G7 Legislative Assistant) device 1 Device yearly 1 each 0 [...] (Other) Past Medical History: Diagnosis Date A-fib ([facility]) 2022 with RVR Anxiety Aortic stenosis 06/2022 Carotid artery disease ([facility]) Cataract CHF (congestive heart failure) ([facility] 06/2022 Colon polyp 2016 Diverticulitis DM (diabetes mellitus) ([facility] [place] HLD (hyperlipidemia) ([facility]) HTN (hypertension) ([facility]) VT (myocardial infarction) ([facility]) NSTEMI, initial episode of care ([facility]) 2022 Retinal hemorrhage Allergies [...] @ 1:09 PM Additional Tests Keratometry K1 Hobson K2 Hobson Right 43.75 180 44 90 Left 44.25 [...] retina superior Refraction Manifest Refraction Sphere Cylinder Hobson Right +1.75 -0.75 098 Left Assessment/Plan Cataract mature, total senile - IOL Biometry - OU - Both Eyes (CPT 65272) - Visually Significant Cataract, OU: I discussed [...] different lens options were explained including the [id number]-[id number] fees for any upgrades. Intraocular lens (IOL) [...] improvement to the vision. documented in this encounterCox [id number] History of Present illness Narrative* Alexis Gilmore, [...] states she had improvement from seeing this [facility] doctors with intervention and has follow up in the near future Patient was seen in [place] for vascular intervention in the past with hx of DM2 and PVD Patient states continued pain to the region and was to follow up with vascular surgeon at the [facility] and states that she did follow [...] History: Past Medical History: Diagnosis Date A-fib ([facility]) 2022 with RVR Anxiety Aortic stenosis 06/2022 Carotid artery disease ([facility]) Cataract CHF (congestive heart failure) ([facility] 06/2022 Colon polyp 2016 Diverticulitis DM (diabetes mellitus) ([facility] [place] HLD (hyperlipidemia) ([facility]) HTN (hypertension) ([facility]) VT (myocardial infarction) ([facility]) NSTEMI, initial episode of care ([facility]) 2022 Retinal hemorrhage Medications: [...] Disp: 3 each, Rfl: 11 Continuous Glucose Legislative Assistant (Dexcom G7 Legislative Assistant) device, 1 Device yearly, Disp: 1 each, [...] Resource Strain: Low Risk (06/22/2024) Re[facility] Overall Financial Resource Strain (CARDIA) Difficulty of Paying Living Expenses: Not hard at all Food Insecurity: No Food Insecurity (12/03/2023) Received from [facility], [facility], [facility] Hunger Vital Sign Within the past 12 months, you worried that your food would run out before you got the money to buymore.: Never true Within the past 12 months, the food you bought just didn't last and you didn't have money to get more.: Never true Transportation Needs: No Transportation Needs (06/22/2024) Received from [facility] PRAPARE - Transportation Lack of Transportation (Medical): No Lack of Transportation (Non-Medical): No Physical Activity: Inactive (06/22/2024) Re[facility] from [facility] Exercise Vital Sign Days of Exercise per Week: 0 days Minutes of Exercise per Session: 0 min Stress: Stress Concern Present (12/03/2023) Received from [facility], [facility] [place] of Occupational Health - Occupational Stress Questionnaire Feeling of Stress : To some extent Social Connections: Moderately Isolated (12/03/2023) Received from [facility], [facility] Social Connection and Isolation Panel [NHANES] Frequency of Communication with Friends and Family: More than three times a week Frequency of Social Gatherings with Friends and Family: More than three times a week Attends Yazidism Services: Never Active Member of Clubs or Organizations: No Attends Club or Organization Meetings: Never Marital Status: Intimate Partner Violence: Not At Risk (12/03/2023) Received from [facility], [facility] Humiliation, Afraid, Rape, and Kick questionnaire Fear of Current or Ex-Partner: No Emotionally Abused: No Physically Abused: No Sexually Abused: No Housing Stability: Low Risk (06/22/2024) Received from [facility] Housing Stability Vital Sign Unable to [...] positive edema to left foot. NEURO: 5.07 [place] Truong monofilament test diminished to digits and forefoot bilaterally 125Hz tuning fork diminished to 1st MPJ bilaterally ORTHO: Positive pain on palpation nails 1 through 10 Flexion deformities digits 2 through 5 bilateral ASSESSMENT 1. PVD (peripheral vascular disease) (CMS/HCC) 2. Diabetes mellitus due to underlying condition with diabetic polyneuropathy, unspecified whether long term care administrator insulin use ([facility]/HCC) 3. Dry gangrene (CMS/HCC) 4. Onychomycosis 5. 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 Bilateral. Condition: established, stable OD, active/worsening OS [facility] Work Phone: 1(205) 147-232308-21-2024 History of Present illness Narrative* Encounter Date [...] 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 Patient denies any [...] [facility] Phys[facility] Work Phone: [phone] Instructions* Date Instruction Additional Infor dimple Impression/Plan [...] of right eye [facility] Work Phone: 1([phone]) [phone] Plan of care note* Care Plan - [...] Goal: Free from fall injury Outcome: Progressing [facility] Work Phone: [phone]) [phone] Miscellaneous Notes* Care Plan - Massiel Sesay [...] Attending: * Nely Curry - Primary Resident/Fellow/Other Mingle Operator: Surgeons and Role: * Braeden Colin MD - Fellow Indications: Pre-op Diagnosis * PAD (peripheral artery disease) ([facility]) [I73.9] Post-procedure diagnosis: Post-op Diagnosis * PAD (peripheral artery disease) ([facility]) [I73.9] Procedure(s): Lower Extremity Angiogram and Intervention 34231 - [facility] ANGIOGRAPHY EXTREMITY UNILATERAL RS&I Procedure Findings: -LLE severe claudication and CLI [facility] class V: Patient status post successful revascularization using directional mfbquagyqke-MRO-LLY to entire left SFA and popliteal with good results. Access of the Procedure: 6F right ADULT DAYCARE COORDINATOR, closed with Vascade and manual pressure. Complications: [...] alternatives discussed with patient. documented in this [facility] Work Phone: [phone]) 174-729208-12-2024 History of Present illness Narrative* Blu Mobley, PharmD - 06/21/2024 2:32 PM EDT Pharmacy Medication History Review Diann Patel is a 68 y.o. female admitted for PAD (peripheral artery disease) ([facility] Pharmacy reviewed the patient's zqkaa-cv-pjaqdtscg medications and allergies for accuracy. Medications ADDED: acetaminophen Medications CHANGED: Albuterol as needed for shortness of breath/wheezing Basaglar KwikPen 100units/mL- 50 units at bedtime Ondansetron ODT as needed for nausea/vomiting Medications REMOVED: Spironolactone The list below reflects the updated ROOM SERVICE FOOD SERVER list. Comments regarding how patient may be [...] Below are additional concerns with the patient's ROOM SERVICE FOOD SERVER list. N/A Blu Mobley PharmD Transitions of Care Pharmacist [facility] Retail [facility] Please reach out via Secure Chat for questions, or if no response call Genome or Papaya[employer] documented in this [facility] Work Phone: [phone]) [phone] Note* Post-Procedure Note - Nely Curry MD - 06/21/2024 2:05 PM EDT Physician Transition of Care Summary Invasive Cardiovascular Lab Procedure Date: 06/21/2024 Attending: * Nely Curry - Primary Resident/Fellow/Other Mingle Operator: Surgeons and Role: * Braeden Colin MD - Fellow Indications: Pre-op Diagnosis * PAD (peripheral artery disease) (CMS-HCC) [I73.9] Post-procedure diagnosis: Post-op Diagnosis * PAD (peripheral artery disease) (CMS-[facility]) [I73.9] Procedure(s): Lower Extremity Angiogram and Intervention 35898 - [facility] ANGIOGRAPHY EXTREMITY UNILATERAL RS&I Procedure Findings: -LLE severe claudication and CLI [facility] class V: Patient status post successful revascularization using directional kjrmofliomc-SND-LHV to entire left SFA and popliteal with good results. Access of the Procedure: 6F right ADULT DAYCARE COORDINATOR, closed with Vascade and manual pressure. Complications: [...] by: Nely Curry MD, 06/21/2024 5:00 PM [facility] Work Phone: [phone] Note* Pre-Sedation Documentation - Braeden Colin MD - 06/21/2024 1:58 PM EDT Sedation Plan ASA 3 Mallampati class: III. Risks, benefits, and alternatives discussed with patient. [facility] Work Phone: [phone]) [phone] History of Present illness Narrative* Margareth Escamilla DO - 06/15/2024 3:00 PM EDT Images from the original note were not included. [facility] Note Referring Provider: Noe Conklin DO PCP: No primary care provider on file. Clinical Data Programmer: Alexis Gilmore DPM CC: PAD Subjective HPI: [...] History: 12/04/23: LLE angiogram, jet stream atherectomy, ROOM SERVICE FOOD SERVER and stenting of SFA/pop (Dr. Padilla) for [...] ondansetron ODT (Zofran-ODT) 4 mg disintegrating tablet Need FixedTouch Ultra Test strip USE TO TEST BLOOD [...] 0.52/0.43 Left 0/0 No imaging available from [facility] for review Plan: LLE angiogram with intervention on 06/21/[address] Curry Images from [facility] requested Continue aspirin, Plavix, Eliquis (Last dose of Eliquis PM of 06/18) Continue atorvastatin Percocet x10 tablets sent to patients pharmacy for pain control until procedure on 06/21/24 Patient seen and discussed with attending, Dr. Francine Escamilla DO documented in this [facility] Work Phone: [phone] 318-723608-06-2024 Instructions* Patient Instructions* Margareth Leblanc MD - 06/15/2024 3:00 PM EDT Images from the original note were not included. It was a pleasure taking care of you today and appreciate your seeing us at our [facility]. Today's plan is as follows: Continue [...] blood flow to your left leg at [facility] ([address] [facility]) with Dr. Escamilla The floating labor gang supervisor staff will call you the day before the procedure for further instructions and time of the procedure. The phone number to reach them at is [phone] (M-F, 6:30 am -5 pm) You will [...] call the office with any questions at [phone], press option 1 If you need coordinating your appointments and testing you can do these at the net front end developer or by calling my office shortly after your visit. documented in this [facility] Work Phone: 1([phone]) 774-632302-01-2024 History of Present illness Narrative* Alexis Berry [...] left leg and patient was transferred to [facility] where she had it angioplasty procedure with increased blood flow noted by patient. She has a type 2 diabeticand presents today for follow up in office. Allergies: Allergies Allergen Reactions Penicillins Hives childhood-swelling Past Medical History: Past Medical History: Diagnosis Date A-fib ([facility]) 2022 with RVR Anxiety Aortic stenosis 06/2022 Carotid artery disease ([facility]) CHF (congestive heart failure) ([facility]) 06/2022 Colon polyp 2016 Diverticulitis DM (diabetes mellitus) ([facility]) HLD (hyperlipidemia) ([facility]) HTN (hypertension) ([facility]) VT (myocardial infarction) ([facility]) NSTEMI, initial episode of care ([facility]) 2022 Medications: Current Outpatient [...] positive edema to left foot NEURO: 5.07 [place] Truong monofilament test diminished to digits and forefoot bilaterally 125Hz tuning fork diminished to 1st MPJ bilaterally ORTHO: Minimal pain on palpation to left foot ulcer BRIDGER PVR non readable findings to the left with non pulsatile flow and right of 0.53 DP ASSESSMENT 1. Diabetes mellitus due to underlying condition with diabetic polyneuropathy, unspecified whether longterm insulin use ([facility]) 2. PVD (peripheral vascular disease) ([facility]) 3. Dry gangrene ([facility]) 4. Foot ulcer, left, with fat layer exposed ([facility]) PLAN Sharp debridement with 15 blade of subcutaneous ulceration to left foot with active bleeding noted and removal and excision of fibrotic and necrotic tissue to wound and DSD applied with neosporin. Ptto continue with Betadine daily Reviewed BRIDGER PVRs and patient is to follow up with [facility] for right foot in near future and continue with wound care until follow up in 1 week Alexis Gilmore DPM documented in this encounterCox [id number] Evaluation note* Encounter Date Diagnosis Assessment Notes [...] office sooner with any issues or concerns. [employer] Other 03-24-2023 NotePROCEDURE: XR WRIST LT MIN 3 V HISTORY: Pain after falling COMPARISON: None. FINDINGS: BONES:No fracture, acute abnormality, or significant arthropathy. SOFT TISSUES:Multiple skin jose within soft tissues lateral to the distal forearm. EFFUSION:None visible. OTHER: Negative. IMPRESSION: 1. No acute bone abnormality. 2. Multifocal mild degenerative joint disease. Electronically authenticated by: GERMAIN COY Date: 2023-01-31 13:10[facility] [id number] Procedure [facility] 01-09-2023 Evaluation note* Encounter Date Diagnosis [...] clinical exam. I do not have the Edin studies yet. We will reach out to [...] was obtained all her questions were addressed. [employer] Other 08-25-2022 NoteMR#: [id number] [facility] Pt. Name: Diann Patel Admitted: 2022 Discharged: [...] Amaya MD Date Trans: 07/03/2022 11:43 P/mmo [id number] cc: Champ Bell M.D. [address] [place] [id number] Evaluation note* Encounter Date Diagnosis Assessment [...] plan all of her questions were addressed. [employer] Other Consult note* Clinical Note Date No Information [facility] Work Phone: Discharge summary* Clinical Note Date No Information [facility] Work Phone: Evaluation noteNo assessment information available [facility] Work Phone: Evaluation note* Diagnosis Diabetes mellitus due to underlying condition with diabetic polyneuropathy, unspecified whether long term care administrator insulin use ([facility])- Primary PVD (peripheral vascular disease) ([facility]) Unspecified peripheral vascular disease Dry gangrene ([facility]) Foot ulcer, left, with fat layer exposed ([facility]) documented in this encounter [facility] HealthcareEvaluation note* Diagnosis Onset Date Resolution Status Peripheral artery disease acute [facility] Work Phone: Evaluation note* Diagnosis Pseudophakia- Primary Lens replaced by other means documented in this encounter [facility] HealthcareEvaluation note* Diagnosis Pseudophakia- Primary Lens replaced by other means Cataract mature, total senile Total or mature senile cataract documented in this encounter [facility] HealthcareEvaluation note* Diagnosis Pseudophakia- Primary Lens replaced by other means documented in this encounter [facility] HealthcareEvaluation note* Diagnosis Pseudophakia- Primary Lens replaced by other means Diabetes mellitus due to underlying condition with diabetic polyneuropathy, unspecified whether longterm insulin use ([facility])- Primary Pain due to onychomycosis of toenails of both feet Dry gangrene ([facility]) PVD (peripheral vascular disease) ([facility]) Unspecified peripheral vascular disease documented in this encounter [facility] HealthcareEvaluation note* Diagnosis Acute asthmatic bronchitis ([facility])- Primary Unspecified asthma, with exacerbation Type 2 diabetes mellitus with hyperglycemia, with long-term current use of insulin ([facility]) Polyneuropathy due to type 2 diabetes mellitus ([facility]) Acute cough Dry gangrene ([facility])- Primary PVD (peripheral vascular disease) ([facility]) Unspecified peripheral vascular disease Diabetes mellitus due to underlying condition with diabetic polyneuropathy, unspecified whether long term care administrator insulin use ([facility]) Pain due to onychomycosis of toenails of both feet documented in this encounter [facility] HealthcareEvaluation note* Diagnosis Dry gangrene ([facility])- Primary PVD (peripheral vascular disease) ([facility]) Unspecified peripheral vascular disease Diabetes mellitus due to underlying condition with diabetic polyneuropathy, unspecified whether long term care administrator insulin use ([facility]) Pain due to onychomycosis of toenails of both feet documented in this encounter [facility] HealthcareEvaluation note* Diagnosis Acute asthmatic bronchitis ([facility])- Primary Unspecified asthma, with exacerbation Need for vaccination Need for prophylactic vaccination and inoculation against unspecified single disease Hypotension, unspecified hypotension type documented in this encounter [facility]* Diagnosis Pseudophakia- Primary Lens replaced by other means documented in this encounter [facility] HealthcareEvaluation note* Diagnosis PAD (peripheral artery disease) ([facility])- Primary Unspecified peripheral vascular disease PAD (peripheral artery disease) ([facility]) Unspecified peripheral vascular disease S/P peripheral artery angioplasty Other postprocedural status Atherosclerosis of quinault arteries of extremities with intermittent claudication, left leg ([facility]) Atherosclerosis of quinault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 with ulceration of other part of foot (Multi) Acute pain PAD (peripheral artery disease) ([facility]) Unspecified peripheral vascular disease documented in this encounter [facility] Work Phone: Evaluation note* Diagnosis PAD (peripheral artery disease) ([facility])- Primary Unspecified peripheral vascular disease Anemia, unspecified type documented in this encounter [facility] Work Phone: Evaluation note* Diagnosis PAD (peripheral artery disease) ([facility]) Unspecified peripheral vascular disease S/P peripheral artery angioplasty Other postprocedural status documented in this encounter [facility] Work Phone: Evaluation note* Diagnosis S/P peripheral artery angioplasty- Primary Other postprocedural status PAD (peripheral artery disease) ([facility]) Unspecified peripheral vascular disease documented in this encounter [facility] Work Phone: Evaluation note* Diagnosis Dry gangrene ([facility])- Primary PVD (peripheral vascular disease) ([facility]) Unspecified peripheral vascular disease Diabetes mellitus due to underlying condition with diabetic polyneuropathy, unspecified whether longterm insulin use ([facility]) Onychomycosis Dermatophytosis of nail Toe pain, bilateral documented in this encounter [facility] HealthcareEvaluation note* Diagnosis Cataract mature, total senile- Primary Total or mature senile cataract documented in this encounter [facility] HealthcareEvaluation note* Diagnosis Heel spur, right- Primary Diabetes mellitus due to underlying condition with diabetic polyneuropathy, unspecified whether longterm insulin use ([facility]) Pain due to onychomycosis of toenails of both feet Onychomycosis Dermatophytosis of nail PVD (peripheral vascular disease) ([facility]) Unspecified peripheral vascular disease Achilles tendinitis, right leg Contracture of right ankle documented in this encounter [facility] HealthcareEvaluation note* Diagnosis Heel spur, right- Primary Achilles tendinitis, right leg Contracture of right ankle documented in this encounter [facility] HealthcareEvaluation note* Diagnosis Paroxysmal atrial fibrillation ([facility]/HCC)- Primary Atrial fibrillation Benign essential hypertension ([facility]) Essential hypertension, benign Type 2 diabetes mellitus with hyperglycemia, with long-term current use of insulin ([facility]) 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 ([facility]) S/P CABG x 4 Postsurgical aortocoronary bypass status Encounter for screening mammogram for malignant neoplasm of breast Type 2 diabetes mellitus with foot ulcer (CODE) ([facility]) Non-pressure chronic ulcer of other part of left foot with fat layer exposed ([facility]) documented in this encounter [facility] HealthcareEvaluation note* Diagnosis Type 2 diabetes mellitus with hyperglycemia, with long-term current use of insulin ([facility]) documented in this encounter [facility] HealthcareEvaluation note* Diagnosis 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 associated with type 2 diabetes mellitus (CMS/HCC)- Primary 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 ([facility]/HCC) Epiretinal membrane (ERM) of both eyes Dry eyes Unspecified tear film insufficiency Achilles tendinitis, right leg- Primary Contracture of right ankle Diabetes mellitus due to underlying condition with diabetic polyneuropathy, unspecified whether longterm insulin use ([facility]) Pain due to onychomycosis of toenails of both feet PVD (peripheral vascular disease) ([facility]) Unspecified peripheral vascular disease documented in this encounter [facility] HealthcareEvaluation note* Diagnosis Onset Date Resolution Status Admit Date Weakness acuteApril 2024 6:24pm [facility] Work Phone: Evaluation note* Diagnosis Encounter for screening mammogram for breast cancer- Primary Type 2 diabetes mellitus with hyperglycemia, with long-term current use of insulin ([facility]) Rheumatoid arthritis, unspecified Vitreous hemorrhage, left eye (CMS/[facility]) Vitreous hemorrhage Vitreous hemorrhage, right eye ([facility]) Vitreous hemorrhage Atherosclerosis of quinault arteries of right leg with ulceration of thigh ([facility]) documented in this encounter [facility] HealthcareEvaluation note* Diagnosis Contracture of right ankle- Primary Achilles tendinitis, right leg Diabetes mellitus due to underlying condition with diabetic polyneuropathy, unspecified whether long term care administrator insulin use ([facility]) Pain due to onychomycosis of toenails of both feet documented in this encounter [facility] HealthcareEvaluation note* Diagnosis Medicare annual wellness visit, subsequent- Primary 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 ([facility]) Benign essential hypertension ([facility]) Essential hypertension, benign Diverticulosis of colon Diverticulosis of colon (without mention of hemorrhage) Generalized anxiety disorder ([facility]) Generalized anxiety disorder Irritable bowel syndrome with both constipation and diarrhea Mixed hyperlipidemia ([facility]) Mixed hyperlipidemia Paroxysmal atrial fibrillation ([facility]) Atrial fibrillation Peripheral vascular disease ([facility]) Unspecified peripheral vascular disease Polyneuropathy due to type 2 diabetes mellitus ([facility]) Poorly controlled diabetes mellitus ([facility]) Type II or unspecified type diabetes mellitus without mention of complication, not stated as uncontrolled 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 associated with type 2 diabetes mellitus ([facility]) Type 2 diabetes mellitus with hyperglycemia, with long-term current use of insulin ([facility]) Osteopenia, unspecified location Asthma without status asthmaticus without complication, unspecified asthma severity, unspecified whether persistent ([facility]) Arteriosclerosis of arterial coronary artery bypass graft ([facility]) Estrogen deficiency Other ovarian failure Chronic migraine with aura without status migrainosus, not intractable ([facility]) Overweight 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 ([facility]) 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, with long-term current use of insulin, unspecified retinopathy severity ([facility]) Bilateral carotid artery stenosis Occlusion and stenosis of carotid artery without mention of cerebral infarction New onset of congestive heart failure ([facility]) NSTEMI (non-ST elevated myocardial infarction) ([facility]) Acute myocardial infarction, subendocardial infarction, episode of care unspecified Screening for thyroid disorder Routine general medical examination at health care facility Routine general medical examination at a health care facility Screening for colon cancer Special screening for malignant neoplasms, colon documented in this encounter [facility] HealthcareEvaluation [facility]* Diagnosis Iron deficiency anemia, unspecified iron deficiency anemia type- Primary [facility] Iron deficiency anemia, unspecified [...] underlying condition with diabetic polyneuropathy, unspecified whether longterm insulin use ([facility]) Pain due to onychomycosis of toenails of both feet [facility] Diagnosis History of colon polyps- Primary Upper abdominal pain Iron deficiency anemia, unspecified iron deficiency anemia type Chronic anticoagulation Encounter for long-term (current) use of anticoagulants Other chronic gastritis without hemorrhage documented [facility]* Diagnosis VH (vitreous hemorrhage), right ([facility])- Primary Dry eyes Unspecified tear film insufficiency [facility]* Diagnosis Contracture of right ankle- Primary Achilles tendinitis, right leg Diabetes mellitus due to underlying condition with diabetic polyneuropathy, unspecified whether long term care administrator insulin use ([facility]) documented [facility]* Diagnosis Preoperative clearance- Primary Unspecified pre-operative examination Type 2 diabetes mellitus with hyperglycemia, with long-term current use of insulin (HCC) 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, with long-term current use of insulin, unspecified retinopathy severity (HCC) Asthma without status asthmaticus without complication, unspecified asthma severity, unspecified whether persistent ([facility]) Major depressive disorder, single episode, in full remission Major depressive disorder, single episode in full remission Contracture of right ankle- Primary Achilles tendinitis, right leg [facility] Diagnosis Contracture of right ankle- Primary Achilles tendinitis, right leg Type 2 diabetes mellitus with hyperglycemia, with long-term current use of insulin ([facility]) documented [facility]* Diagnosis Abnormal breast exam- Primary Other sign and symptom in breast Encounter for screening mammogram for malignant neoplasm of breast Type 2 diabetes mellitus with diabetic chronic kidney disease (HCC) Chronic kidney disease, stage 3b ([facility]) Acute non-recurrent pansinusitis Achilles tendinitis, right leg- Primary Diabetes mellitus due to underlying condition with diabetic polyneuropathy, unspecified whether longterm insulin use ([facility]) Pain due to onychomycosis of toenails of both feet documented in this encounter [facility] HealthcareEvaluation note* Diagnosis Achilles tendinitis, right leg- Primary Contracture of right ankle Type 2 diabetes mellitus with hyperglycemia, with long-term current use of insulin (HCC) Pain due to onychomycosis of toenails of both feet documented in this encounter [facility] HealthcareEvaluation note* Diagnosis Acute non-recurrent pansinusitis- Primary documented in this encounter [facility] HealthcareHistory and physical note* Clinical Note Date No Information [facility] Work Phone: Hisbxng general Narrative - Reported* Type Description Date Medical History carotid stenosis Medical HistorydiverticulitisMedical HistoryMIMedical HistoryDMMedical History hyperlipidemiaMedical HistoryHTNSurgical HistorycholecystectomySurgical History tonsillectomySurgical ZgywybjACCIk1Izxmgmch Historyhernia repairSurgical History appendectomySurgical Historyquad [id number] Historysee surgical [employer] Other Hisvwln general Narrative - Reported* Type Description Date Medical History carotid stenosis Medical HistorydiverticulitisMedical HistoryMIMedical HistoryDMMedical History hyperlipidemiaMedical HistoryHTNSurgical HistorycholecystectomySurgical History tonsillectomySurgical WselpktQLKGd6Gnzvhhed Historyhernia repairSurgical History appendectomySurgical Historyquad [id number] HistoryCardiac [id number] Hospitalization Historysee surgical [employer] Other History of Present illness Narrative* Teena [...] vision, questions or concerns. [facility] Present illness Narrative * Teena Delcid DO - 09/17/2024 9:30 AM EST Images from the original note were not included. Assessment/Plan Diagnoses and all orders for this visit: Pseudophakia - s/p CE OS (POD #7): Patient provided with post-op form. Instructed to continue drops. Discontinueeye shield. Instructed to call immediately with increased pain, redness, decreased vision, questions or concerns. [facility] * Dale [...] her primary care physician. [facility] Additional Instructions DISDISCHARGE INSTRUCTIONS FOR [...] 24 hours. CALL [name at #] OR [facility] AT [phone]: -If excessive bleeding should occur from the [...] Avandament for the next two days.] [ ][facility] Work Phone: Hospital Discharge instructions Additional Instructions Resume Eliquis in 3 days.[facility] Work Phone: Hospital Discharge instructions Additional [...] operative site FOLLOW UP Phone numbers: Office [phone] ZsfmukxufProm[facility] Work Phone: Progress note* Clinical Note Date No Information [facility] Work Phone: reason for referral (narrative)* Reason For Referral No Information [facility] Work Phone: Recyoj for referral (narrative)No reason for referral information availablePromedica Defiance [facility] Work Phone: Reason for visit Narrative* Auth/CertSpecialty Diagnoses / ProceduresReferred By ContactReferred To Contact Diagnoses PAD (peripheral artery disease) ([facility]) PAD (peripheral artery disease) ([facility]) [I73.9] Procedures CHG ANGIOGRAPHY EXTREMITY UNILATERAL RS&I Lower Extremity Angiogram and Intervention Nely Curry MD [address] [facility] [place] [address] [facility] Tth1892 Cvepinv [address] [place] [address] Referral IDStatusReasonStart DateExpiration DateVisits RequestedVisits [id number] [facility] Work Phone: Summary Purpose Family History [...] To ContactCardiology Diagnoses PAD (peripheral artery disease) ([facility]) S/P peripheral artery angioplasty Procedures Vascular US Ankle Brachial Index (BRIDGER) Without Exercise Terri Sosa APRN-SAXOPHONE TEACHER [address] [place] [address] Referral IDStatusReasonStart DateExpiration DateVisits RequestedVisits [id number] Perform Procedure Additional Source Comments REASON FOR VISIT (unrecogniz ed section and content) ReasonCommentsConsultPVR F/CQntchhGhrtknpjZivt-dyGbbsdpCxiglrojZdir-opIodshbvd ReasonCommentsPost-op Follow-upReasonCommentsDiabetesReasonCommentsDM Foot Care Dm nail careReasonCommentsNew Patient VisitSpecialtyDiagnoses / Procedures Referred By ContactReferred To ContactCardiology Diagnoses PAD (peripheral artery disease) ([facility]) S/P peripheral artery angioplasty Procedures Vascular US Ankle Brachial Index (BRIDGER) Without Exercise Terri Sosa APRN-SAXOPHONE TEACHER [address] [place] [id number] Referral IDStatusReasonStart DateExpiration DateVisits RequestedVisits [id number] Perform Procedure [id number]-tuKsdbzpDwfbhrqoMM Foot CareDM Nails ReasonCommentsCataractReasonCommentsFollow-upRT HEEL SPUR CHECKReasonCommentsMed RefillReasonCommentsFollow-upReasonCommentsConsultColonoscopy- Hx of colon polyps- Last colonoscopy was 2020 Debi Merrill at [facility] and she wants to have pt get an upper and [place] scope done [place]. Pt would rather have thisdone here.SpecialtyDiagnoses / ProceduresReferred By Contact Referred To ContactGeneral Surgery Diagnoses Screening for colon cancer Procedures DE OFFICE/OUTPATIENT [facility] MDM 60 MINUTES Johnna Cedeño NP [address] [facility] [address] [place] [address] Phone: tel: fax: Dale Fox MD [address] [facility] [address] [place] [address] Phone: tel: fax: Referral IDStatusReasonStart DateExpiration DateVisits RequestedVisits [id number] Specialty Services Required [id number] po EGD/ColonoscopyReasonCommentsEye Pain ReasonCommentsConsent Or InstructionspreopReasonCommentsPost-op5d s/p rt tenotomyReasonCommentsDM Foot Care INFORMATION SOURCE (unrecogn ized section and content) DATE CREATED AUTHOR 07/13/[address] [facility] DATE CREATED AUTHOR AUTHOR'S ORGANIZ ATION 02/04/2023 [facility] DATE CREATED AUTHOR AUTHOR'S ORGANIZ ATION 07/26/2024 [facility] DATE CREATED AUTHOR AUTHOR'S ORGANIZ ATION 07/26/2024 [facility] DATE CREATED AUTHOR AUTHOR'S ORGANIZ ATION 06/01/[address] [facility] DATE CREATED AUTHOR AUTHOR'S ORGANIZ ATION 07/23/2025 [facility] DATE CREATED AUTHOR AUTHOR'S ORGANIZ ATION 08/16/2025 [facility] DATE CREATED AUTHOR AUTHOR'S ORGANIZ ATION 09/12/2025 [facility] DATE CREATED AUTHOR AUTHOR'S ORGANIZ ATION 09/21/2025 [facility] EPIC Care Teams [...] MemberRelationship SpecialtyStart DateEnd Date Champ Bell MD [address] [place] [address] PCP - GeneralInternal Medicine03/18/23 Team Status: Inactive [...] MemberRelationshipSpecialtyStart DateEnd Date Champ Bell MD [address] [place] [address] PCP - GeneralInternal Medicine03/18/23 Champ Bell MD [address] [place] [address] PCP - O [facility]01/09/24FridayMagalie LPN [address] [place] [address] Licensed Practical NurseFami Medicine02/27/24Team MemberRelationshipSpecialty Start DateEnd Date Champ Bell MD [address] [place] [address] PCP - [facility] Centern[facility]03/18/23 Champ Bell MD [address] [place] [address] PCP - [facility]01/09/24FridayMagalie LPN [address] [place] [address] Licensed Practical NurseFamily Medicine02/27/24Team MemberRelationshipSpecialty Start DateEnd Date Champ Bell MD [address] [place] [address] PCP - GeneralInternal Medicine03/18/23 Champ Bell MD [address] [place] [address] PCP - [facility]01/09/24Friday, ABDELRAHMAN MejiasN [address] [place] [address] Licensed Practical NurseFamily Medicine02/27/24Team MemberRelationshipSpecialty Start DateEnd Date Champ Bell MD [address] [place] [address] PCP - GeneralInternal Medicine03/18/23 Champ Bell MD [address] [place] [address] PCP - [facility]01/09/24Friday, ABDELRAHMAN MejiasN [address] [place] [address] Licensed Practical NurseAd[facility] Medicine02/27/24Te MemberRelationshipSpecialty Start DateEnd Date Champ Bell MD [address] [place] [address] PCP - GeneralInternal Medicine03/18/23 Champ Bell MD [address] [place] [address] PCP - [facility]01/09/24Friday, Magalie UTILITY PIPE LAYER [address] [place] [address] Licensed Practical NurseFamily Medicine02/27/24Team MemberRelationshipSpecialty Start DateEnd Date Champ Bell MD [address] [place] [address] PCP - GeneralInternal Medicine03/18/23 Champ Bell MD [address] [place] [address] PCP - [facility]01/09/24Friday, Magalie, UTILITY PIPE LAYER [address] [place] [address] Licensed Practical NurseAdcare [facility] Medicine02/27/24Team MemberRelationshipSpecialty Start DateEnd Date Champ Bell MD [address] [place] [address] [facility]/18/23 Champ Bell MD [address] [place] [address] [facility]01/09/24Friday, Magalie, UTILITY PIPE LAYER [address] [place] [address] Licensed Practical NurseColquitt [facility]02/27/24Team MemberRelationshipSpecialty Start DateEnd Date Champ Bell MD [address] [place] [address] PCP - GeneralBanner Cardon Children'S Medical Centernal Medicine03/18/23 Champ Bell MD [address] [place] [address] PCP - [facility]01/09/24Friday, Magalie, UTILITY PIPE LAYER [address] [place] [address] Licensed Practical NurseAd[facility] Medicine02/27/24Team MemberRelationshipSpecialty Start DateEnd Date Champ Bell MD [address] [place] [address] PCP - GeneralInternal Medicine03/18/23 Champ Bell MD [address] [place] [address] PCP - [facility]01/09/24Friday, Magalie, UTILITY PIPE LAYER [address] [place] [address] Licensed Practical NurseFamily Medicine02/27/24Team MemberRelationshipSpecialty Start DateEnd Date Champ Bell MD [address] [place] [address] PCP - GeneralInternal Medicine03/18/23 Champ Bell MD [address] [place] [address] PCP - [facility] Reach01/09/24Friday, JAMESON Mejias [address] [place] [address] Licensed Practical NurseFamily Medicine02/27/24Team MemberRelationshipSpecialty Start DateEnd Date Noe Conklin DO [address] [facility] [address] [place] [address] PCP - GeneralFamily MedicineTeam MemberRelationshipSpecialtyStart DateEnd Date Champ Bell MD [address] [place] [address] PCP - GeneralInternal Medicine03/18/23 Champ Bell MD [address] [place] [address] PCP - O [facility]01/09/24Friday, Magalie, UTILITY PIPE LAYER [address] [place] [address] Licensed Practical NurseFarevere memorial hospital Medicine02/27/24Team MemberRelationshipSpecialty Start DateEnd Date Champ Bell MD [address] [place] [address] PCP - GeneralB[facility]on [facility] Centern[facility] Medicine03/18/23 Champ Bell MD [address] [place] [address] [facility] Reach01/09/24Friday, Magalie, UTILITY PIPE LAYER [address] [place] [address] Licensed Practical NurseColquitt Regional Medical Center02/27/24Te MemberRelationshipSpecialty Start DateEnd Date Champ Bell MD [address] [place] [address] PCP - GeneralB[facility] Cardon [facility] Centern[facility] Medicine03/18/23 Champ Bell MD [address] [place] [address] [facility] - [facility]01/09/24Friday, Magalie, UTILITY PIPE LAYER [address] [place] [address] Licensed Practical NurseAdcare Hospital [facility] Medicine02/27/24Te MemberRelationshipSpecialty Start DateEnd Date Champ Bell MD [address] [place] [address] PCP - GeneralInternal Medicine03/18/23 Champ Bell MD [address] [place] [address] PCP - [facility]01/09/24FridayMagalie LPN [address] [place] [address] Licensed Practical NurseFamily Medicine02/27/24Team MemberRelationshipSpecialty Start DateEnd Date Champ Bell MD [address] [place] [address] PCP - GeneralInternal Medicine03/18/23 Champ Bell MD [address] [place] [address] PCP - O Reach01/09/24FridayMagalie LPN [address] [place] [address] Licensed Practical NurseFamily Medicine02/27/24Team MemberRelationshipSpecialty Start DateEnd Date Champ Bell MD [address] [place] [address] PCP - GeneralInternal Medicine03/18/23 Champ Bell MD [address] [place] [address] PCP - [facility]01/09/24 Lauren Finn, RN Licensed Practical NurseFamily Medicine12/17/24Team MemberRelationshipSpecialty Start DateEnd Date Champ Bell MD [address] [place] [address] PCP - GeneralInternal Medicine03/18/23 Champ Bell MD [address] [place] [address] PCP - [facility]01/09/24 Lauren Finn, WARD Licensed Practical NurseFarevere memorial hospital Medicine12/17/24Te MemberRelationshipSpecialty Start DateEnd Date Champ Bell MD [address] [place] [address] PCP - GeneralB[facility] Centern[facility] Medicine03/18/23 Champ Bell MD [address] [place] [address] [facility] - [facility]01/09/24 Lauren Finn, WARD Licensed Practical NurseAd[facility] Medicine12/17/24Te MemberRelationshipSpecialty Start DateEnd Date Champ Bell MD [address] [place] [address] [facility] - [facility]03/18/23 Champ Bell MD [address] [place] [address] [facility]01/09/24 Lauren Finn RN Licensed Practical NurseAdcare Hospital [facility] Medicine12/17/24Te MemberRelationshipSpecialty Start DateEnd Date Champ Bell MD [address] [place] [address] PCP - [facility]03/18/23 Champ Bell MD [address] [place] [address] PCP - [facility]01/09/24 Lesa Browne, [facility] 02/01/25Team MemberRelationshipSpecialtyStart DateEnd Date Champ Bell MD [address] [place] [address] PCP - GeneralInternal Medicine03/18/23 Champ Bell MD [address] [place] [address] PCP - [facility]01/09/24 Lesa Browne, [facility] 02/01/25Team MemberRelationshipSpecialtyStart DateEnd Date Champ Bell MD [address] [place] [address] PCP - [facility] Centern[facility] Medicine03/18/23 Champ Bell MD [address] [place] [address] PCP - ACO [facility]01/09/24 Lesa Browne, [facility] 02/01/25Team MemberRelationshipSpecialtyStart DateEnd Date Champ Bell MD [address] [place] [address] PCP - GeneralB[facility] Centern[facility] Medicine03/18/23 Champ Bell MD [address] [place] [address] PCP - [facility]CO [facility]01/09/24 Lesa Browne, [facility] 02/01/25Team MemberRelationshipSpecialtyStart DateEnd Date Champ Bell MD [address] [place] [address] PCP - GeneralInternal Medicine03/18/23 Champ Bell MD [address] [place] [address] PCP - ACO [facility]01/09/24 Lesa Browne [employer] PIPE LAYER 02/01/25 Team Status: Inactive Member Role Status Dates Champ Bell II MD Primary Care Provid er, Attending Provider Active Start: March 10, 2025 End: March 10, 2025Team MemberRelationshipSpecialtyStart DateEnd Date Champ Bell MD [address] [place] [address] PCP - GeneralInternal Medicine03/18/23 Champ Bell MD [address] [facility] [address] [place] [address] PCP - ACO [facility]01/09/24 Lesa Browne [employer] PIPE L[employer] 02/01/25Team MemberRelationshipSpecialtyStart DateEnd Date Champ Bell MD [address] [facility] [address] [place] [address] PCP - [facility] Centern[facility] Medicine03/18/23 Champ Bell MD [address] [facility] [address] [place] [address] PCP - [facility]01/09/24 Lesa Browne [facility] 02/01/25Team MemberRelationshipSpecialtyStart DateEnd Date Charlene Mckinley MD [address] [place] [address] [place] [address] [facility]05/09/25Team MemberRelationshipSpecialtyStart DateEnd Date Champ Bell MD [address] [place] [address] PCP - GeneralInternal Medicine03/18/23 Champ Bell MD [address] [place] [address] PCP - [facility]01/09/24 Lesa Browne LPN [address] [place] [address] 02/01/25Team MemberRelationshipSpecialtyStart DateEnd Date Champ Bell MD [address] [place] [address] [facility]03/18/23 Champ Bell MD [address] [place] [address] PCP - [facility] Reach01/09/24 Lesa Browne LPN [address] [place] [address] 02/01/25 Team Status: Inactive Member Role Status Dates Champ Bell II MD Primary Care Provider Active Start: June 09, 2025 End: June 09Vannesa Hernández ProviderActiveStart: June 09, 2025 End: June 09, 2025Team MemberRelationshipSpecialtyStart DateEnd Date Champ Bell MD [address] [place] [address] PCP - [facility]ern[facility]03/18/23 Champ Bell MD [address] [place] [address] PCP - [facility]01/09/24 Browne, Lesa, UTILITY PIPE LAYER [address] [place] [address] 02/01/25Team MemberRelationshipSpecialtyStart DateEnd Date Champ Bell MD [address] [place] [address] PCP - GeneralInternal Medicine03/18/23 Champ Bell MD [address] [place] [address] PCP - [facility]01/09/24 Lesa Browne LPN [address] [place] [address] 02/01/25Team MemberRelationshipSpecialtyStart DateEnd Date Champ Bell MD [address] [place] [address] PCP - GeneralInternal Medicine03/18/23 Champ Bell MD [address] [place] [address] PCP - [facility]01/09/24 Lesa Browne LPN [address] [place] [address] 02/01/25Team MemberRelationshipSpecialtyStart DateEnd Date Champ Bell MD [address] [place] [address] PCP - GeneralInternal Medicine03/18/23 Champ Bell MD [address] [place] [address] PCP - [facility]01/09/24 Lesa Browne LPN [address] [place] [address] 02/01/25 Team Status: Inactive Member Role Status Dates Champ Bell II MD Primary Care Provider Active Start: July 19, 2025 End: July 19, 2025Santo Guo ProviderActiveStart: July 19, 2025 End: July 19, 2025Team MemberRelationshipSpecialtyStart DateEnd Date Champ Bell MD [address] [place] [address] PCP - GeneralInternal Medicine03/18/23 Champ Bell MD [address] [place] [address] PCP - ACO Reach01/09/24 Lesa Browne LPN [address] [place] [address] 02/01/25Team MemberRelationshipSpecialtyStart DateEnd Date Champ Bell MD [address] [place] [address] PCP - GeneralInternal Medicine03/18/23 Champ Bell MD [address] [place] [address] PCP - ACO Reach01/09/24 Lesa Browne LPN [address] [place] [address] 02/01/25 Team Status: Inactive Member Role Status Dates Champ Bell II MD Primary Care Provider Active Start: July 22, 2025 End: July 22, 2025[place] ProviderActiveStart: July 22, 2025 End: July 22, 2025Team MemberRelationshipSpecialtyStart DateEnd Date Champ Bell MD [address] [place] [address] PCP - GeneralInternal Medicine03/18/23 Champ Bell MD [address] [place] [address] PCP - ACO Reach01/09/24 Lesa Browne LPN [address] [place] [address] 02/01/25Team MemberRelationshipSpecialtyStart DateEnd Date Champ Bell MD [address] [place] [address] PCP - GeneralInternal Medicine03/18/23 Champ Bell MD [address] [place] [address] PCP - ACO Reach01/09/24FridayMagalie LPN [address] [place] [address] Licensed Practical NurseFamily Medicine/06/03 Lauren Finn, WARD [address] [place] [address] Licensed Practical NurseFamily Medicine/ Lesa Browne LPN [address] [place] [address] 02/01/25Team MemberRelationshipSpecialtyStart DateEnd Date Champ Bell MD [address] [place] [address] PCP - GeneralInternal Medicine03/18/23 Champ Bell MD [address] [place] [address] PCP - ACO Reach01/09/24FridayMagalie LPN [address] [place] [address] Licensed Practical NurseFamily Medicine/06/03 Lauren Finn, WARD [address] [place] [address] Licensed Practical NurseFamily Medicine Lesa Browne LPN [address] [place] [address] 02/01/25Team MemberRelationshipSpecialtyStart DateEnd Date Champ Bell MD [address] [place] [address] PCP - GeneralInternal Medicine03/18/23 Champ Bell MD [address] [place] [address] PCP - ACO Reach01/09/24 Lesa Browne LPN [address] [place] [address] 02/01/25 Goals (unrecognized section and content) Goals [...] 41 to 70 mg/dL, Starting on Fri06/21/24 [id number], May repeat until blood glucose level reaches [...] or prosecute any alcohol or drug abuse patient.[facility] FOR RECORDS PERTAINING TO PATIENTS WHO [...] BE BASED ON THE PRIMARY CLINICAL RECORDS. [employer] [facility]. provides no warranty or guarantee of the accuracy or completeness of information in this document.
--- OUTSIDE RECORDS SUMMARY | 2025-11-11 15:24 | XMS_ITS | CCD ---
Author Organization [facility] Care Team Providers Care Winding Operator Name Role Phone Geo Mathew Unavailable CHASE [...] Champ Bell MD Primary Care Provider MONSE Blel Primary Care Provider [phone] KIKA Gilmore Attending Provider MD Rodrigo Yousif Attending Provider [phone] Darrell BUTT, PhD, Trace Unavailable Unavalucero ESCAMILLA, MARGARETH H Attending Unavailable NOE CONKLIN Primary Care Unavailable FRANCINE, MARGARETH H Attending Unavailable ROHINIBHARATI KNAPPR Referring Unavailable NOE CONKLIN Primary Care Unavailable JEREMY, TAREK Admitting Unavailable JEREMY TAREK Attending Unavailable NOE CONKLIN Primary Care Unavailable NOE CONKLIN Primary Care Unavailable TABIRTA, TERRI I Referring Unavailable Champ Bell MD Unavailable [phone] Friday BUSINESS ADMINISTRATOR, Magalie Unavailable Unavailable Primary Care Provider UnavailNoe Gonzales DO Primary Care Provider Aakash HOPPER, [facility] Unavailable [phone] Darrell BUTT, PhD, Trace Unavailable Cruz Ramírez MD, PhD, Trace Unavailable Cruz Browne BUSINESS ADMINISTRATOR, Lesa Unavailable Unavailable Champ Bell II Primary Care Provider Ross Martinez APRN Emergency Provider [phone] Edvin Casper MD Admit Provider dEvin Casper MD Attending Provider [phone] Champ Bell II Attending Provider [phone] Charlene Mckinley MD Unavailable [phone] Browne BUSINESS ADMINISTRATOR, Lesa Unavailable MALENFANT, AKIRA E Attending Unavaila [...] Care Provider Dale Fox MD Attending Provider [phone] Alexis Gilmore DPM Attending Provider Vinod [...] Carlos MD, Agustin Unavailable Unavailabl e Friday BUSINESS ADMINISTRATOR, Magalie Unavailable Lauren Finn RN Unavailable Trace [...] of OnsetReaction(s) Facility (1 source)Penicillin VDrug AllergyhivesNort [employer] Other (7 sources)Penicillins; Translations: [PENICILLINS]Drug allergy (disorder) 99-48-4596HbsbxCezBlanchard Valley Health System Repository (8 sources)Penicillin; Translations: [PENICILLIN]Drug Xpimsbi20-17-0507vhcms, UnknownCV Physicians (20 sources)PenicillinsDrug Cokknjl77-80-6433Zcvoi, UnknownPers[facility] (4 sources)PenicillinsDrug Pkdvqmk53-41-4327Askfl, Other, UnknownVeterans Health Administration (1 source)PenicillinsDrug allergy (disorder)20-57-2520RqboeuztmAshtabula County [facility] Repository Medications Current Medications MedicationDrug Class(es)DatesSig (Normalized)Sig [...] 5 mg oral tablet (16 sources)Opioid AgonistStart: 40-91-2364eeqb 1 tablet by mouth once daily as needed for painHydrocodone-Acetaminophen 5-325 mg tablet Active 1 TAB PO Daily as needed for pain July 19, 2025 12:00am Complies with drug therapyStart: 07-18-2025 End: 45-37-6837thqd 1 tablet by mouth every eight hours as needed for pain HYDROcodone-acetaminophen (Rainelle) 5-325 MG tablet Indications: Pain Take 1 tablet by mouth every 8 (eight) hours if needed for moderate pain (PRN pain) for up to 5 days 15 tablet 07/27/2025 08/01/2025 Activealbuterol 0.83 mg/ml inhalation solution (20 sources)beta2-Adrenergic AgonistStart: 52-72-3198Kuynqllbq Sulfate 2.5 mg /3 mL (0.083 %) solution for nebulization Active 2.5 MG CNTNEBULIZ Four times daily as needed for shortness of breath or wheezing July 19, 2025 12:00am Complies with drug therapyStart: 06-21-2024 End: 87-49-3866eeybqfxrl (2.5 MG/3ML) 0.083% nebulizer solution 3 ml Inhalation 4 times a day and as needed for 6 03/01/2025 Discontinued (Ineffective)albuterol 2.5 mg /3 mL (0.083 %) nebulizer solution Take 3 mL (2.5 mg) by nebulization 4 times a day as needed for wheezing or shortness of breath. ActiveamLODIPine 10 mg oral tablet (20 sources)Dihydropyridine Calcium Channel BlockerStart: 62-69-7770wcPGUCVlcf (Norvasc) 10 MG tablet 05/11/2024 ActiveStart: 01-13-2023 End: 22-20-9563agjh 1 tablet by mouth once dailyAmlodipine 5 mg tablet Discontinued 5 MG PO Daily January 13, 2023 1:00am February 15, 2025 6:47pmapixaban 5 mg oral tablet (20 sources)Factor Xa InhibitorStart: 01-13-2023 End: 05-75-0599tcah 1 tablet by mouth in the morningapixaban (Eliquis) 5 MG tablet Indications: Paroxysmal atrial fibrillation (CMS/HCC) Take 1 tablet (5 mg) by mouth in the morning and 1 tablet (5 mg) before bedtime. 200 tablet 1 08/23/2024 12/30/2024 Discontinued (Cost of medication)Start: 01-13-2023 End: 60-12-7762kggb 1 tablet by mouth every twelve hoursEliquis 5 mg tablet take 1 tablet by oral route 2 times every day 5 MG - Activeatorvastatin 80 mg oral tablet (20 sources)HMG-CoA Reductase InhibitorStart: 44-96-7577rhid 1 tablet by mouth once dailyatorvastatin (Lipitor) 80 MG tablet Indications: Mixed hyperlipidemia TAKE 1 TABLET BY MOUTH EVERY DAY 100 tablet 3 11/15/2024 Activebenzonatate 200 mg oral capsule (7 sources)Non-narcotic AntitussiveStart: 09-22-2024 End: 84-48-2685bruy 1 capsule by mouth three times daily [...] BREAKFAST AND WITH EVENING MEAL 02/22/2025 ActiveStart: 97-10-2741vonk 1 tablet by mouth every twelve hours carvedilol (Coreg) 25 MG tablet Take 25 mg by mouth every 12 (twelve) hours. 0 01/28/2023 ActiveStart: 34-29-7196vwfq 0.5 tablet by mouth every twelve hours carvedilol (Coreg) 25 mg tablet Take 0.5 tablets (12.5 mg) by mouth every 12 hours. 01/13/2023 ActiveStart: 92-87-3795onuj 1 tablet by mouth every twelve hourscarvedilol (Coreg) 25 mg tablet Take 1 tablet (25 mg) by mouth every 12 hours. 01/13/2023 ActiveStart: 01-13-2023 End: 06-34-4305cgqh 1 tablet by mouth twice dailyCarvedilol 25 mg tablet Discontinued 25 MG PO Twice daily January 13, 2023 1:00am July 19, 2025 2:49pmStart: 00-77-8587djdq 12.5 mg by mouth twice dailyCarvedilol Active 12.5 MG PO Twice daily January 13, 2023 1:00am End: 14-24-3369qcvl 1 capsule by mouth once dailyCoreg CR 20 mg capsule, extended release take 1 capsule by oral route every day 20 MG - Zxz-38-0491Ov Longer Activecarvedilol (Coreg) 25 MG tablet Take 12.5 mg by mouth in the morning and 12.5 mg before bedtime. Activecitalopram 20 mg oral tablet (20 sources)Serotonin Reuptake InhibitorStart: 78-78-1459zvef 1 tablet by mouth twice dailycitalopram (CeleXA) 20 mg tablet Take 1 tablet (20 mg) by mouth 2 times a day. 01/13/2023 ActiveStart: 90-02-1699dhhv 1 tablet by mouth once daily citalopram (CeleXA) 20 MG tablet Indications: Generalized anxiety disorder Take 1 tablet (20 mg) bymouth Daily 100 tablet 2 11/30/2024 ActiveStart: 05-05-2019 End: 78-03-2438pszr 1 tablet by mouth once dailycitalopram 40 mg tablet take 1 tablet by oral route every day 40 MG - No Longer Active take 0.5 tablet by mouth every twenty-four hoursCitalopram Hydrobromide 40 MG 0.5 tablet Orally Once a day Activecodeine phosphate 2 mg/ml / guaiFENesin 20 mg/ml oral solution (7 sources)Opioid AgonistStart: 09-22-2024 End: 12-51-7336llqh 5 mL by mouth four times daily as needed for cough guaiFENesin-codeine (guaiFENesin AC) 100-10 MG/5ML syrup Indications: Acute cough Take 5 mL by mouth 4 (four) times a day as needed for cough for up to 10 days 120 mL 09/22/2024 10/02/2024 ActiveContinuous Glucose Military Logistics Specialist (Dexcom G7 Military Logistics Specialist) device (20 sources)Start: 62-51-6909Ijrbtvnbun Glucose Military Logistics Specialist (Dexcom G7 Military Logistics Specialist) device Indications: Type 2 diabetes mellitus with [...] 1 Device yearly 1 each 03/05/2024 ActiveStart: 07-43-7696Znbfiiiqrd Glucose Military Logistics Specialist (Dexcom G7 Military Logistics Specialist) device Indications: Type 2 diabetes mellitus with [...] 03/05/2024 ActiveContinuous Glucose Sensor (Dexcom G7 Sensor) [facility] [place] ([place] sources)Start: 48-59-2622Csyknelgew Glucose Sensor (Dexcom G7 Sensor) [facility] [place]ications: Type 2 diabetes mellitus with hyperglycemia, with long-term current use of insulin ([facility]) 1 UNITS EVERY 10 (TEN) DAYS 9 each 3 02/03/2025tive Start: 64-67-9511Zdlxlpxjsz Glucose Sensor (Dexcom G7 Sensor) [facility] [place]ications: Type 2 diabetes mellitus with hyperglycemia, with long-term current use of insulin (CMS/[facility]) 1 UNITS EVERY 10 (TEN) DAYS 9 each 3 02/03/2025 Active dabigatran etexilate 150 mg oral capsule (20 sources)Start: 68-07-8411geng 1 capsule by mouth every twelve hoursPradaxa 150 mg capsule take 1 capsule by oral route 2 times every day 150 MG - ActiveStart: 78-58-6019kpou 1 capsule by mouth twice dailyDabigatran Etexilate 150 mg capsule Active 150 MG PO Twice daily July 19, 2025 12:00am Complies with drug therapyStart: 12-20-2024 End: 58-19-3520qjtv 1 capsule by mouth in the morningdabigatran etexilate (Pradaxa) 150 MG capsule Indications: Paroxysmal atrial fibrillation ([facility]/HCC) Take 1 capsule (150 mg) by mouth in the morning and 1 capsule (150 mg) before bedtime. Do not crushor chew.. 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 (CMS/HCC) Take 1 tablet (10 mg) by mouth Daily 30 tablet 11 12/30/2024 03/01/2025 Discontinued (Ineffective)diclofenac sodium 0.01 mg/mg topical gel (20 sources)Nonsteroidal Anti-inflammatory DrugStart: 65-18-0333btlbopeasx sodium 1 % gel APPLY 4 GRAMS TO ABDOMINAL WALL FOUR TIMES DAILY NEEDED 02/16/2025 ActiveStart: 50-14-0677Hjuflrmaxh Sodium (Voltaren Arthritis Pain) 1 % gel Active 4 GM TOPICAL Four times daily as needed for abdominal pain February 16, 2025 12:54pm Apply to abdominal wall Complies with drug therapyStart: 39-44-6129Ztyfblsrbi Sodium (Voltaren Arthritis Pain) 1 % gel Active 4 GM TOPICAL Four times daily as needed for abdominal pain February 16, 2025 12:54pm Apply to abdominal walldicyclomine hydrochloride 10 mg oral capsule (20 sources)AnticholinergicStart: 02-22-2025 End: 71-73-1476lcjcgafhmkp (Bentyl) 10 MG capsule Indications: Irritable bowel syndrome with both constipation anddiarrhea Take 1 capsule (10 mg) by mouth in the morning and 1 capsule (10 mg) at noon and 1 capsule(10 mg) in the evening and 1 capsule (10 mg) before bedtime. 200 capsule 2 04/14/2025 ActiveStart: 01-13-2023 End: 61-47-2937wnrc 1 tablet by mouth three times dailyDicyclomine 20 mg Tablet Discontinued 20 MG PO Three times daily January 13, 2023 1:00am May 19, 2024 8:19am End: 34-65-8008ykur 1 tablet by mouth four times daily [...] sulfate 325 mg oral tablet (20 sources)Start: 50-16-6888kihl 1 tablet by mouth once dailyferrous sulfate 325 mg (65 mg iron) tablet take 1 tablet by oral route every day 325 MG - ActiveStart: 02-16-2025 End: 72-99-3789jifk 1 tablet by mouth every other dayferrous sulfate 325 (65 Fe) MG tablet Indications: Asthma without status asthmaticus without complication, unspecified asthma severity, unspecified whether persistent (HCC) Take 1 tablet (325 mg) by mouth every other day 50 tablet 07/20/2025 ActiveStart: 01-13-2023 End: 67-45-5046qbwc 1 tablet by mouth once dailyFerrous Sulfate 140 mg (45 mg iron) Tablet Extended Release Discontinued 140 MG PO Daily January 1:00am May 18, 2024 10:44amFerrous Sulfate Activefurosemide 40 mg oral tablet (20 sources)Loop DiureticStart: 21-70-0522yqrw 40 mg by mouth once daily before zaocmmoet04 mg, oral, Daily before breakfast, First dose on Fri06/22/24 at 0700 Start: 03-19-2024 End: 72-69-1335cxhl 1 tablet by mouth once dailyfurosemide 20 mg tablet take 1 tablet by oral route every day 20 MG - No Longer Active Start: 03-19-2024 End: 52-36-9284slkx 3 tablets by mouth in the morningfurosemide (Lasix) 20 MG tablet Take 60 mg by mouth in the morning. 03/19/2024 03/01/2025 Discontinued (Therapy completed)Start: 70-57-8488vwrd 1 tablet by mouth once dailyfurosemide (Lasix) 40 MG tablet Indications: Edema, unspecified type TAKE 1 TABLET BY MOUTH EVERY DAY 90 tablet 12/20/2024 ActiveStart: 14-97-1502Jbdeiddoph 40 mg tablet Active 60 MG PO Daily January 13, 2023 1:00am Complies with drug therapyStart: 49-86-9630iqdk 60 mg by mouth once dailyFurosemide Active 60 MG PO Daily January 13, 2023 1:00amgabapentin 300 mg oral capsule (20 sources)Anti-epileptic AgentStart: 37-42-0219vlhj 1 capsule by mouth twice udogr566 mg, oral, 2 times daily, First dose on Fri06/21/24 at 2100, Capsules may be opened and sprinkled on food (eg, applesauce, orange juice, puddingStart: 52-88-5597mlsn 2 capsules by mouth twice dailygabapentin (Neurontin) 300 mg capsule Take 2 capsules (600 mg) by mouth 2 times a day. 01/13/2023 ActiveStart: 01-13-2023 End: 72-45-9602ocoo 1 capsule by mouth in the morninggabapentin (Neurontin) 300 MG capsule Indications: Polyneuropathy due to type 2 diabetes mellitus (HCC) Take 1 capsule (300 mg) by mouth in the morning and 1 capsule (300 mg) before bedtime. 180 capsule 3 09/22/2024 09/22/2025 ActiveStart: 24-48-1679nqhp 1 capsule by mouth twice dailygabapentin 300 mg capsule take 1 capsule by oral route 2 times every day - Activeglucagon (rdna) 1 mg injection (2 sources)Antihypoglycemic AgentStart: ml glucose 500 mg/ml prefilled syringe (2 sources)Start: 67-81-7471wuopWQRKGWD hydrochloride 100 mg oral tablet (20 sources)Arteriolar VasodilatorStart: 03-02-2025 End: 14-50-7818dzfoZPXZQFO (Apresoline) 100 MG tablet 03/02/2025 ActiveStart: 15-22-9012kmmaBTZVHAQ (Apresoline) 100 MG tablet 03/02/2025 ActiveStart: 12-20-2024 End: 08-27-1761ghrd 1 tablet by mouth twice dailyHydralazine 25 mg tablet Discontinued 25 MG PO Twice daily February 15, 2025 12:00am July 19, 2025 2:52pmStart: 44-82-4529syokEIOBSPG (Apresoline) 50 MG tablet Take 75 mg by mouth in the morning and 75 mg before bedtime. 08/22/2024 ActiveStart: 05-10-2024 End: 83-03-8628ibdy 1 tablet by mouth twice dailyHydralazine 50 mg tablet Discontinued 50 MG PO Twice daily February 15, 2025 12:00am July 19, 2025 2:52pmStart: 01-13-2023 End: 17-53-5055Ohlvxguczqf 100 mg tablet Discontinued 50 MG PO Twice daily January 13, 2023 1:00am February 15, 2025 6:39pmStart: 74-37-6921finv 50 mg by mouth twice dailyHydralazine Active 50 MG PO Twice daily January 13, 2023 1:00amStart: 64-54-3214xvkq 100 mg by mouth twice dailyHydralazine Active 100 MG PO Twice daily January 13, 2023 1:00am3 ml insulin glargine 100 unt/ml pen injector (20 sources)Insulin AnalogStart: 07-20-2025 End: 53-99-5042bwsftr 45 [IU] by subcutaneous injection at bedtimeinsulin glargine (Lantus) 100 UNIT/ML pen Indications: Type 2 diabetes mellitus with hyperglycemia,with long-term current use of insulin (HCC) Inject 45 Units under the skin at bedtime 40.5 mL 3 07/20/2025 07/20/2026 ActiveStart: 03-01-2025 End: 74-50-2523sdlftz 40 [IU] by subcutaneous injection at bedtimeinsulin glargine (Lantus) 100 UNIT/ML pen Indications: Type 2 diabetes mellitus with hyperglycemia,with long-term current use of insulin (HCC) Inject 40 Units under the skin at bedtime 36 mL 3 06/16/2025 07/20/2025 DiscontinuedStart: 02-15-2025 End: 28-33-1141Tzzyke Solostar U-100 Insulin 100 unit/mL (3 mL) subcutaneous pen inject by subcutaneous route per prescriber's instructions. Insulin dosing requires individualization. 0.00 - ActiveStart: 12-30-2024 End: 14-50-4589Nmzingf Glargine (Lantus Solostar U-100 Insulin) 100 unit/mL (3 mL) insulin pen Active 80 UNIT SUBCUT Bedtime February 15, 2025 12:00am Complies with drug therapyStart: 09-22-2024 End: 70-75-2810skjnsnl glargine (Basaglar KwikPen) 100 UNIT/ML pen Indications: Type 2 diabetes mellitus with hyperglycemia, with long-term current use of insulin (CMS/HCC) Inject 75 Units under the skin at njhuarc56 mL 11 09/22/2024 12/30/2024 DiscontinuedStart: 09-22-2024 End: 45-87-7454pxbpmv 70 [IU] by subcutaneous injection at bedtimeinsulin glargine (Lantus) 100 UNIT/ML injection Indications: Type 2 diabetes mellitus with hyperglycemia, with long-term current use of insulin (CMS/HCC) Inject 70 Units under the skin at bedtime 09/22/2024 09/22/2024 Discontinued (Reorder) Start: 09-22-2024 End: 37-01-9547ackwmd 75 [IU] by subcutaneous injection at bedtimeinsulin glargine (Lantus) 100 UNIT/ML injection Indications: Type 2 diabetes mellitus with hyperglycemia, with long-term current use of insulin (CMS/HCC) Inject 75 Units under the skin at bedtime 22.5 mL 11 09/22/2024 09/22/2024 Discontinued (Reorder)Start: 03-18-2024 End: 38-84-9719wotldj 40 [IU] by subcutaneous injection at bedtimeinsulin glargine (Lantus) 100 UNIT/ML injection Indications: Type 2 diabetes mellitus with hyperglycemia, with long-term current use of insulin (CMS/HCC) Inject 40 Units under the skin at bedtime 10 mL 12 03/18/2024 09/22/2024 Discontinued Start: 03-35-3594Hqiumaph KwikPen U-100 Insulin 100 unit/mL (3 mL) pen Inject 50 Units under the skin once daily at bedtime. 11/17/2023 ActiveStart: 11-14-2023 insulin glargine (Basaglar KwikPen) 100 UNIT/ML pen Indications: Type 2 diabetes mellitus with hyperglycemia, unspecified whether terminal operator insulin use (CMS/HCC) INJECT 86 UNITS UNDER THE SKIN AT AT BEDTIME 75 mL 3 11/14/2023 Active insulin glargine (Semglee) 100 UNIT/ML injection Inject 86 Units under the skin at bedtime. 0 ActiveSemglee 100 UNIT/ML as directed Subcutaneous Not-Taking Insulin Glargine-Yfgn (2 sources)Start: 57-43-4873zxfoqo 50 [IU] by subcutaneous injection at bedtime Insulin Glargine-Yfgn Active 50 UNIT SUBCUT Bedtime May 18, 2024 12:00am insulin lispro 100 unt/ml injectable solution (1 source)Insulin AnalogStart: 12-95-3605joypzyq, regular, human 100 unt/ml injectable solution (20 sources)InsulinStart: 64-50-7633NaavYXF R 100 UNIT/ML injection Indications: Type 2 [...] 40 mL 2 09/22/2024 ActiveStart: 01-29-2024 End: 60-52-5327aiumsf 22 [IU] by subcutaneous injection onceinsulin regular (NovoLIN R) 100 UNIT/ML injection Indications: Type 2 diabetes mellitus with hyperglycemia, with long-term current use of insulin (CMS/HCC) INJECT DIRECTED UNDER THE SKIN PER SLIDING SCALE WITH MAX OF 22 UNITS PER DAY 40 mL 2 01/29/2024 09/22/2024 Discontinued (Reorder)Start: 13-35-7972lwqcno 10 [IU] by subcutaneous injection once before mealtimeInsulin Regular Human (Novolin R Flexpen) 100 unit/mL (3 mL) Insulin Pen Active 22 UNIT SUBCUT 3x/Day before meals January 13, 2023 1:00am if less then 150 does not take insulin if its greater the 150takes 10units Complies with drug therapyStart: 13-30-4428cmjxzv 10 [IU] by subcutaneous injection once before mealtimeInsulin Regular Human (Novolin R Flexpen) 100 unit/mL (3 mL) Insulin Pen Active 10 UNIT SUBCUT 3x/Day before meals January 13, 2023 1:00am if less then 150 does not take insulin if its greater the 150takes 10unitsStart: 06-11-3403norrwq 9 [IU] by subcutaneous injection three times dailyInsulin Regular Human (Novolin R Flexpen) 100 unit/mL (3 mL) Insulin Pen Active 9 UNIT SUBCUT Threetimes daily January 13, 2023 1:00am Start: 36-58-6053KpvfFHY R 100 UNIT/ML injection Inject 20 mL under the skin in the morning. 0 10/24/2022 Active End: 77-99-4096Fhbyghe R Regular U-100 Insulin 100 unit/mL injection solution inject by subcutaneous route per prescriber's instructions. Insulin dosing requires individualization. 0. No Longer ActiveNovoLIN R 100 UNIT/ML as directed Injection Activeketorolac tromethamine 5 mg/ml ophthalmic solution (20 sources)Nonsteroidal Anti-inflammatory Drug, Cyclooxygenase InhibitorStart: 09-01-2024 End: 28-60-6917xdaxpejks (Acular) 0.5 % ophthalmic solution 09/01/2024 03/01/2025 Discontinued (Ineffective)Start: 07-13-2024 End: 19-70-3132pvih 1 drop(s) into the eye(s) in the morningketorolac (Acular) 0.5 % ophthalmic solution Indications: Cataract mature, total senile Administer 1 drop into affected eye(s) in the morning and 1 drop before bedtime. 5 mL 1 07/13/2024 08/12/2024 ActivelevoFLOXacin 500 mg oral tablet (11 sources)Quinolone AntimicrobialStart: 09-20-2025 End: 41-22-9417jskt 1 tablet by mouth once dailylevoFLOXacin (Levaquin) 500 MG tablet Indications: Acute non-recurrent pansinusitis Take 1 tablet (500 mg) by mouth Daily for 10 days 10 tablet 09/20/2025 09/30/2025 ActiveStart: 08-24-2025 End: 67-78-4784zceg 1 tablet by mouth once dailylevoFLOXacin (Levaquin) 500 MG tablet Indications: Acute non-recurrent pansinusitis Take 1 tablet (500 mg) by mouth Daily for 10 days 10 tablet 08/24/2025 09/03/2025 ActiveStart: 09-22-2024 End: 95-69-2760iaoy 1 tablet by mouth once dailylevoFLOXacin (Levaquin) 500 MG tablet Indications: Acute asthmatic bronchitis (CMS/HCC) Take 1 tablet (500 mg) by mouth Daily for 10 days 10 tablet 09/22/2024 10/02/2024 Activelisinopril 20 mg oral tablet (20 sources)Angiotensin Converting Enzyme InhibitorStart: 83-62-9345cpgzozibvn 20 MG tablet Take 20 mg by mouth 05/10/2024 Activeloratadine 10 mg oral tablet (20 sources)Start: 84-64-3109durt 1 tablet by mouth in the morningloratadine (Claritin) 10 MG tablet Take 10 mg by mouth in the morning. 02/15/2025 Active methocarbamol 500 mg oral tablet (20 sources)Muscle RelaxantStart: 80-50-4090krih 1 tablet by mouth every eight hours as neededmethocarbamol (Robaxin) 500 MG tablet Take 500 mg by mouth every 8 (eight) hours if needed 05/03/2025 ActivemethylPREDNISolone (4 sources)CorticosteroidStart: 08-24-2025 End: 91-80-1105cdjssdSFUECDRabceo (Medrol Dospak) 4 MG tablets Indications: Acute non-recurrent pansinusitis Follow schedule on package instructions 21 tablet 08/24/2025 08/31/2025 ActiveStart: 09-22-2024 End: 51-54-4952gkhpjyYAIMZZQdsptz (Medrol Dospak) 4 MG tablets Indications: Acute asthmatic bronchitis (CMS/HCC) Follow schedule on package instructions 21 tablet 09/22/2024 09/29/2024 ExpiredMultivitamin (Daily Multi-Vitamin) tablet (6 sources)Start: 38-89-8393swul 1 tablet by mouth once daily in the morning Multivitamin (Daily Multi-Vitamin) tablet Active 1 TAB PO Every morning February 15, 2025 12:00am Complies with drug therapyStart: 36-70-8140smxz 1 tablet by mouth once daily in the morningStart: 62-24-5137rugk 1 tablet by mouth once dailyMultivitamin (Daily Multi-Vitamin) tablet Active 1 TAB PO Daily February 15, 2025 12:00am Complies with drug therapyStart: 86-40-5890dcsl 1 tablet by mouth once dailyMultivitamin (Daily Multi-Vitamin) tablet Active 1 TAB PO Daily February 15, 2025 12:00amMultivitamin preparation (5 sources)Multiple Vitamins tablet qd - Activeofloxacin 3 mg/ml ophthalmic solution (1 source)Quinolone AntimicrobialStart: 07-13-2024 End: 26-55-8423oitn 1 drop(s) into the eye(s) five times dailyofloxacin (Ocuflox) 0.3 % ophthalmic solution Indications: Cataract mature, total senile Administer1 drop into the right eye 5 (five) times a day for 1 day Starting 1 day before surgery, continue after surgery as directed 5 mL 1 07/13/2024 07/14/2024 Activeondansetron 4 mg disintegrating oral tablet (7 sources)Serotonin-3 Receptor AntagonistStart: 32-65-6758lajn 1 tablet by mouth every eight hours [...] tablet (20 sources)Proton Pump InhibitorStart: 03-02-2025 End: 66-89-9808wvsr 1 tablet by mouth before mealtimepantoprazole (ProtoNix) 40 MG EC tablet Take 40 mg by mouth in the morning. Take before meals. 03/02/2025 03/02/2026 Activemicroencapsulated potassium chloride 20 meq extended release oral tablet (20 sources)Start: 98-41-8066cqzz 1 tablet by mouth once dailypotassium chloride CR (Klor-Con M20) 20 MEQ ER tablet Indications: Benign essential hypertension TAKE 1 TABLET(20 MEQ) BY MOUTH DAILY 90 tablet 08/24/2025 ActiveStart: 74-66-8703bbhe 1 tablet by mouth once daily at mealtimepotassium chloride ER 20 mEq tablet,extended release take 1 tablet by oral route every day with food 20 MEQ - ActiveStart: 01-13-2023 End: 53-46-4245zwfk 1 tablet by mouth once dailypotassium chloride CR (Klor-Con M20) 20 MEQ ER tablet Indications: Benign essential hypertension Take 1 tablet (20 mEq) by mouth Daily 90 tablet 04/14/2025 ActiveprednisoLONE acetate 10 mg/ml ophthalmic suspension (20 sources)CorticosteroidStart: 09-01-2024 End: 26-12-0592zdynamftSTXX acetate (Pred-Forte) 1 % ophthalmic suspension 09/01/2024 03/01/2025 Discontinued (Ineffective)Start: 07-13-2024 End: 79-69-6780lpylemskTTXG acetate (Pred-Forte) 1 % ophthalmic suspension Indications: Cataract mature, total senile Administer 1 drop into both eyes in the morning and 1 drop at noon and 1 drop in the evening and1 drop before bedtime. Do all this for 14 days. 5 mL 1 07/13/2024 07/27/2024 Active spironolactone 25 mg oral tablet (20 sources)Aldosterone Antagonist End: 48-16-0300vhnm 1 tablet by mouth in the morningspironolactone (Aldactone) 25 MG tablet Take 25 mg by mouth in the morning. 03/01/2025 Discontinued (Ineffective) Completed/Discontinued Medications MedicationDrug Class(es)DatesSig (Normalized)Sig (Original)acetaminophen 325 mg / oxyCODONE hydrochloride 5 mg oral tablet (13 sources)Opioid AgonistStart: 06-15-2024 End: 18-85-5652heep 1 tablet by mouth every six hours for painoxyCODONE- acetaminophen (Percocet) 5-325 mg tablet Indications: PAD (peripheral artery disease) (CMS-HCC) Take 1 tablet by mouth every 6 hours if needed for severe pain (7 - 10) for up to 7 days. 5 tablet 06/15/2024 06/22/2024 Discontinued (Stop Taking at Discharge)Start: 06-03-2024 End: 94-17-8349swwp 1 tablet by mouth every eight hours as needed for pain Oxycodone-Acetaminophen (Percocet) 5-325 mg tablet Discontinued 1 TAB PO Every 8 hours as needed for pain 29 08June 03, 2024 February 15, 2025 6:45pmStart: 12-09-2023 End: 25-28-4637pwox 1 tablet by mouth every eight hours for painoxyCODONE- acetaminophen (Percocet) 5-325 MG tablet Indications: Pain Take 1 tablet by mouth every 8(eight) hours if needed for severe pain for up to 5 days 15 tablet 0 12/09/2023 12/14/2023 Activealbuterol 0.833 mg/ml / ipratropium bromide 0.167 mg/ml inhalation solution (18 sources)Anticholinergic, beta2-Adrenergic AgonistStart: 09-22-2024 End: 37-53-1062susbfjcerku-albuterol (Duo-Neb) 0.5-2.5 mg/3 mL nebulizer solution Indications: [...] Inhibitor, Nonsteroidal Anti-inflammatory Drug Start: 01-13-2023 End: 50-39-4478ghuw 1 tablet by mouth once dailyAspirin 81 mg Tablet,Chewable Discontinued 81 MG PO Daily January 13, 2023 1:00am May 18, 2024 10:44amBaby Aspirin Activeclopidogrel 75 mg oral tablet (20 sources)P2Y12 Platelet InhibitorStart: 01-08-2024 End: 71-63-4024jkkc 1 tablet by mouth once dailyClopidogrel 75 mg tablet Discontinued 75 MG PO Daily May 18, 2024 12:00am June 09, 2025 9:33amtake 1 tablet by mouth every twenty-four hoursClopidogrel Bisulfate 75 MG 1 tablet Orally Once a day Not-TakingContinuous Blood Gluc Sensor (Dexcom G7 Sensor) misc (20 sources)Start: 12-15-2023 End: 77-28-1456Mjfwomgjlj Blood Gluc Sensor (Dexcom G7 Sensor) misc Indications: Type 2 diabetes mellitus with hyperglycemia, with long-term current use of insulin (CMS/HCC) 1 Disk Every 10 (ten) days 3 each 11 12/15/2023 02/03/2025 DiscontinuedStart: 23-94-9931Qafhruzxik Blood Gluc Sensor (Dexcom G7 Sensor) misc Indications: Type 2 diabetes mellitus with hyperglycemia, with long-term current use of insulin (CMS/HCC) 1 Disk Every 10 (ten) days 3 each 11 12/15/2023 ActiveInsulin Glargine-Yfgn (3 sources)Start: 05-18-2024 End: 66-85-6109Imkgdiy Glargine-Yfgn 100 unit/mL solution Discontinued 50 UNIT SUBCUT Bedtime May 18, 2024 12:00am February 15, 2025 6:44pmInsulin Glargine- Yfgn 100 unit/mL solution (3 sources)Start: 05-18-2024 End: 54-79-4486Ugvarnb Glargine-Yfgn 100 unit/mL solution Discontinued 50 UNIT SUBCUT Bedtime May 18, 2024 12:00am February 15, 2025 6:44pm P-Oqeknkgzpcmc-O4-B12 3-35-2 MG (3 sources)take 1 tablet by mouth twice kuylgO-Kbhsilxtoiiz-Y8-B12 3-35-2 MG 1 tablet Orally Twice a day Not-TakingLORazepam 0.5 mg oral tablet (20 sources)Benzodiazepine End: 01-28-4108rzbc 1 tablet by mouth every eight hours [...] day Not-Taking Semaglutide (11 sources)Start: 01-13-2023 End: 16-14-1975yvvkrh 1 mg by subcutaneous injection every weekSemaglutide (Ozempic) 1 mg/dose (4 mg/3 mL) pen injector Discontinued 1 MG SUBCUT every week January 13, 2023 1:00am May 18, 2024 10:45amStart: 74-69-7016nbxvpd 1 mg by subcutaneous injection every weekSemaglutide (Ozempic) 1 mg/dose (4 mg/3 mL) pen injector Active 1 MG SUBCUT every week January 13, 2023 1:00amStart: 01-13-2023 inject 1 mg by subcutaneous injection every weekSemaglutide (Ozempic) 1 mg/dose (4 mg/3 mL) pen injector Active 1 MG SUBCUT every week January 13, 2023 12:00am Semglee 100 UNIT/ML (2 sources)Semglee 100 UNIT/ML as directed Subcutaneous Not-Wlcsdj4359 ml sodium chloride 9 mg/ml injection (1 source)Start: 06-21-2024 End: 10-76-7962931 mL/hr, intravenous, Continuous, Starting on Fri06/21/24 at 1745, For 6 hours, Recovery & OnUnit, 6-12 hours post procedure. Post-Procedure Hydration Protocol ACC/AHA/MORRO DEXTRIN (3 sources)Benefiber - as directed Orally Not-TakingBenefiber - as directed Orally Active Problems Active Problems Problem ClassificationProblemDateDocumented DateEpisodic/ChronicAcute myocardial infarction (20 sources)Non-ST elevation (NSTEMI) myocardial infarction; Translations: [Myocardial infarction]Onset: 401889-93-4688NktqydpKjztkvt disorders (20 sources)Generalized anxiety disorder; Translations: [Generalized anxiety disorder]Onset: 896858-65-9928CjfzzvdZhuxdi (20 sources)Asthmatic bronchitis; Translations: [Unspecified asthma, uncomplicated]Onset: 430712-76-3300MgypakqXilqyxv dysrhythmias (20 sources)Unspecified atrial fibrillation; Translations: [Paroxysmal atrial fibrillation]Onset: 632458-06-5397BhjhhzmEifebwzt (20 sources)Combined forms of age-related cataract, bilateral; Translations: [Age-related nuclear cataract, bilateral]Onset: 05-05-2024 Resolved: 38-18-8767HvmczjwRhrbtyy kidney disease (2 sources)Chronic kidney disease stage 3B ; Translations: [Chronic kidney disease, stage 3b ([facility])]31-26-1321UxsprntDoqzysa ulcer of skin (20 sources)Non-pressure chronic ulcer of other part of left foot limited to breakdown of skin; Translations: [Non-pressure chronic ulcer of other part of left foot with fat layer exposed]Onset: 12-42-4664QhqrrdsEkjrhunmunpa of device; implant or graft (20 sources)Arteriosclerosis of arterial coronary artery bypass graft; Translations: [Atherosclerosis of coronary artery bypass graft(s) without angina pectoris]Onset: 433892-41-2263PqszuzyDlqtipjupj heart failure; nonhypertensive (20 sources)Acute combined systolic (congestive) and diastolic (congestive) heart failure; Translations: [Acutecombined systolic and diastolic heart failure]Onset: 828987-96-8490SqtvxnfOvticrvi atherosclerosis and other heart disease (20 sources)Atherosclerotic heart disease of [place] coronary artery without angina pectoris; Translations: [Coronary atherosclerosis]Onset: 07-23-2022 72-36-4006XeccaxeWrttjzov atherosclerosis and other heart disease (3 sources)Presence of aortocoronary bypass graft; Translations: [PRESENCE AORTOCORONARY BYPASS GRAFT]Onset: 32-08-7809ZtcguyrlQebizmncyh and other anemia (4 sources)Iron deficiency anemia, unspecified; Translations: [IRON DEFICIENCY ANEMIA UNSPECIFIED]Onset: 05-76-4431ImanedoeAagfrlopli and other anemia (6 sources)Anemia, unspecified; Translations: [Anemia, unspecified]Onset: 42-86-9779GmtqtcjfPeuxpecx mellitus with complications (20 sources)Diabetes mellitus due to underlying condition with foot ulcer; Translations: [Type 2 diabetes mellitus with hyperglycemia]Onset: 01-09-2021 Resolved: 60-34-9409WmgjlnpWhscznjk mellitus without complication (20 sources)Type 2 diabetes mellitus without complications; Translations: [Type 2 diabetes mellitus without complication]Onset: 12-29-2012 Resolved: 679714-07-7412NtvweluWqkecpz on above:Problem List clean-up per request of Phys. EHR CmteDisorders of lipid metabolism (20 sources)Pure hypercholesterolemia, unspecified; Translations: [Mixed hyperlipidemia]Onset: 334083-03-8709BslnrilDuqyrpl on above:Problem List clean-up per request of Phys. EHR CmteDiverticulosis and diverticulitis (20 sources)Diverticulosis of colon; Translations: [Diverticulosis of large intestine without perforation or abscess without bleeding]Onset: 03-29-2010 61-98-0703JnsorerL Codes: Fall (1 source)Unspecified fall, initial encounter; Translations: [UNSPECIFIED FALL INITIAL ENCOUNTER]Onset: 74-78-5405YcgiprwvMhhtaoqvyx disorders (1 source)Gastro-esophageal reflux disease without esophagitis; Translations: [GERD WITHOUT ESOPHAGITIS]Onset: 01-24-0857GejvpqsMvurajztz hypertension (20 sources)Essential (primary) hypertension; Translations: [Benign essential hypertension]Onset: 968765-55-3642UzbrlzkIvjeuls on above:Problem List clean-up per request of Phys. EHR CmteGastritis and duodenitis (20 sources)Atrophic gastritis; Translations: [Chronic atrophic gastritis without bleeding]Onset: 717494-42-4276SipvowoFfke and other crystal arthropathies (20 sources)Chondrocalcinosis; Translations: [Other chondrocalcinosis, unspecified site]Onset: 383563-43-0936LzualdjCuugxsmx; including migraine (20 sources)Migraine; Translations: [Migraine, unspecified, not intractable, without status migrainosus]Onset: 008950-47-7694QkutbnbCtrcwtip; including migraine (3 sources)Headache; including migraine; Translations: [HEADACHE UNSPECIFIED] Onset: 39-84-0341Ubjdf valve disorders (20 sources)Nonrheumatic aortic (valve) stenosis; Translations: [Aortic stenosis, non-rheumatic ]Onset: 36-36-5238IqitqavIrrfdevhrodl with complications and secondary hypertension (1 source)Hypertensive heart disease with heart failure; Translations: [HTN HEART DISEASE W/HEART FAIL]Onset: 90-88-0777ZcpvcaiXiuwrbnmemekl and screening for infectious disease (2 sources)Vaccination needed; Translations: [Encounter for immunization] 49-76-2506XmdwhtkrZyoabfnjn arthritis and osteomyelitis (except that caused by tuberculosis or sexually transmitted disease) (20 sources)Infection of bone; Translations: [Osteomyelitis, unspecified]Onset: 770396-18-9961KtjmncuDeonmksqjn disorders (20 sources)Decreased estrogen level; Translations: [Other primary ovarian failure]Onset: 775515-22-4585AdzteygYrbi disorders (2 sources)Single episode of major depression in full remission; Translations: [Major depressive disorder, single episode, in full remission]26-48-7331Vdylylt Mycoses (14 sources)Pain in toe; Translations: [Tinea unguium]70-70-0717Rjtwqhkt Nonmalignant breast conditions (2 sources)Breast finding ; Translations: [Other signs and symptoms in breast] 79-87-6510YmrxxjscYsezfaqai or stenosis of precerebral arteries (20 sources)Carotid artery stenosis; Translations: [Occlusion and stenosis of unspecified carotid artery]Onset: 860795-25-5840ZecyfdyItrioto on above: Problem List clean-up per request of Phys. EHR CmteOsteoarthritis (1 source)Unspecified osteoarthritis, unspecified site; Translations: [UNSPECIFIED OSTEOARTHRITIS UNS SITE]Onset: 14-74-6603VjzgmzyEjqnt acquired deformities (14 sources)Contracture of joint of right ankle; Translations: [Contracture, right ankle]59-36-3508MwssdtkWpbpp acquired deformities (1 source)Contracture, right ankle; Translations: [Contracture, right ankle] Onset: 04-56-9926MagkxohNkass aftercare (1 source)halfway (current) use of anticoagulants; Translations: [FRAUD INVESTIGATOR CURRNT USE ANTICOAGULANTS]Onset: 29-24-2253CxlvvpmuLnyxj aftercare (1 source)Other skilled nursing (current) drug therapy; Translations: [OTH FRAUD INVESTIGATOR CURRENT DRUG THERAPY]Onset: 85-08-9568WcjfbxxxZmsfz aftercare (1 source)halfway (current) use of antithrombotics/antiplatelets; Translations: [[facility] ANTITHROMBOT/ANTIPLATLETS]Onset: 01-75-7069Gsavupic Other aftercare (1 source)terminal operator (current) use of insulin; Translations: [[facility] CURRENT USE OF INSULIN]Onset: 12-19-5470SpprbhupSouas aftercare (1 source)terminal operator (current) use of aspirin; Translations: [[facility] CURRENT USE OF ASPIRIN]Onset: 99-17-5788OvdgpgxxEgggz circulatory disease (2 sources)Peripheral vascular angioplasty status; Translations: [Peripheral vascular angioplasty status]Onset: 13-83-4237YjwxnxwxCqakf circulatory disease (2 sources)Low blood pressure; Translations: [Hypotension, unspecified] 00-74-3269EselwbunDtcoq connective tissue disease (4 sources)Calcaneal spur of right foot; Translations: [Calcaneal spur, right foot]41-84-1812NicvmnvjEbpse connective tissue disease (14 sources)Right achilles tendonitis; Translations: [Achilles tendinitis, right leg]46-39-2832XodyxreyRvdfo connective tissue disease (5 sources)Musculoskeletal pain; Translations: [Myalgia, other site]02-16-2025 EpisodicOther connective tissue disease (1 source)Achilles tendinitis, right leg; Translations: [Achilles tendinitis, right leg]Onset: 23-83-1404KeeifqliHynjm eye disorders (7 sources)Vitreous hemorrhage, bilateral; Translations: [Vitreous hemorrhage, bilateral]Onset: 52-12-8284RslhhokErbpe eye disorders (5 sources)Vitreous hemorrhageOnset: 87-36-2138WdndjctAoirz eye disorders (20 sources)Vitreous hemorrhage, left eyeChronicOther eye disorders (20 sources)Hemorrhage of right vitreous body; Translations: [Vitreous hemorrhage, right eye]Onset: 05-05-2024 Resolved: 261127-88-0709BigjogqIphnv eye disorders (2 sources)Hemorrhage of left vitreous body; Translations: [Vitreous hemorrhage, left eye]72-73-7870UgexjbuSfkla eye disorders (3 sources)Vitreous hemorrhage, right eye; Translations: [Vitreous hemorrhage of right eye]Onset: 63-52-5108QsijdkiJknaq eye disorders (1 source)Hemorrhage of bilateral vitreous bodies; Translations: [Hemorrhage of bilateral vitreous bodies]ChronicOther gastrointestinal disorders (20 sources)Irritable bowel syndrome; Translations: [Irritable bowel syndrome without diarrhea]Onset: 001314-94-2365SltqmknGgjug injuries and conditions due to external causes (1 source)Other specified injuries of head, initial encounter; Translations: [OTH SPEC INJURIES HEAD INITIAL ENC]Onset: 04-35-0748VmkafzzfMaozt lower respiratory disease (2 sources)Cough; Translations: [Acute cough]94-06-0126PlqukcewUutnz non- traumatic joint disorders (1 source)Pain in left wrist; Translations: [PAIN IN LEFT WRIST]Onset: 62-53-7719WvamtqntEpinj upper respiratory infections (4 sources)Acute pansinusitis; Translations: [Acute pansinusitis, unspecified] 70-04-3985JoguuvhkPifolydlxk and visceral atherosclerosis (20 sources)Peripheral vascular disease; Translations: [Peripheral vascular disease, unspecified]Onset: 09-20-2021 Resolved: 74-42-8421MfpakkbQnebvnms codes; unclassified (2 sources)Hypersomnia, unspecified; Translations: [Hypersomnia, unspecified] Onset: 82-70-4927YtoapzmUazmtarj codes; unclassified (6 sources)Pain; Translations: [Pain, unspecified]41-16-4368OiuhknqhYwtfqxz detachments; defects; vascular occlusion; and retinopathy (20 sources)Bilateral epiretinal membrane of eyes; Translations: [Puckering of macula, bilateral]Onset: 645877-92-4093VenbbydUkltovqohr arthritis and related disease (2 sources)Rheumatoid arthritis; Translations: [Rheumatoid arthritis, unspecified]86-65-7470XoapfapVbufioink and history of mental health and substance abuse codes (1 source)Personal history of nicotine dependence; Translations: [PERSONAL HISTORY OF NICOTINE DEPEND]Onset: 22-18-7098WjiqkaemHkyvkchhpxw; intervertebral disc disorders; other back problems (1 source)Pain in thoracic spine; Translations: [PAIN IN THORACIC SPINE]Onset: 40-44-7713CetwneutGflnhqt and strains (2 sources)Unspecified sprain of left wrist, initial encounter; Translations: [Strain of muscle and tendon of back wall of thorax, initial encounter]Onset: 67-31-7396GwddroatAwxibrrooizw (4 sources)CONTACT W/AND (SUSP) EXPOS COVID-19; Translations: [CONTACT W/AND (SUSP) EXPOS COVID-19]Onset: 04-43-6758Nakhmzcfslky (2 sources)A [facility] screening has identified you as FRAIL or [...] Four Ways to Beat the Frailty Risk [email or web address]-snkijn-reul- yujv-td-knjg-the-fra wmpq-hyjm67-33hhrn84-18-2125Gmlef infection (1 source)Disease caused by 2019-nCoV; Translations: [UNVACCINATED COVID 19] Onset: 07-02-2022 Past or Other Problems Problem ClassificationProblemDateDocumented DateEpisodic/ChronicAbdominal pain (20 sources)Abdominal pain; Translations: [Unspecified abdominal pain]Onset: 411110-48-4072ZmwgtbawFhahwasbz infection; unspecified site (20 sources)Klebsiella pneumoniae [K. pneumoniae] as the cause of diseases classified elsewhere; Translations: [Staphylococcal infectious disease]Onset: 239220-72-5094SyzknntmMqwwqxunjwrc of device; implant or graft (20 sources)Mechanical complication of musculoskeletal implant; Translations: [Other mechanical complication ofother internal orthopedic devices, implants and grafts, initial encounter]Onset: 928375-52-7628RcqyxdqsUlraipzfcofjl of surgical procedures or medical care (20 sources)Dehiscence of surgical wound; Translations: [Disruption of external operation (surgical) wound, notelsewhere classified, initial encounter]Onset: 472081-80-8331XtmlxjllJighrpdqpe and other anemia (20 sources)Anemia; Translations: [Anemia, unspecified]Onset: 02-18-2025 06-51-3467DxiogfjtIxamtcdzes and other anemia (20 sources)Iron deficiency anemia; Translations: [Iron deficiency anemia, unspecified]Onset: 623033-98-2900RqbaffutIjhowbhu (20 sources)Gangrenous disorder; Translations: [Gangrene, not elsewhere classified]Onset: 994758-30-3621BtstzjrsLxdjvdj and fatigue (20 sources)Asthenia; Translations: [Weakness]Onset: 129938-91-3068 EpisodicMood disorders (20 sources)Mood disordersOnset: 833476-96-7786Iionyqdncto chest pain (20 sources)Chest pain, unspecified; Translations: [Chest pain]Onset: 12-29-2012 EpisodicOther aftercare (20 sources)Long-term current use of anticoagulant; Translations: [halfway (current) use of anticoagulants]Onset: 987772-64-2137TxlmydclAslnp and unspecified benign neoplasm (20 sources)History of polyp of colon; Translations: [History of colon polyps] Onset: 306383-79-9210HkntnzzzGwdas bone disease and musculoskeletal deformities (20 sources)Osteopenia; Translations: [Other specified disorders of bone density and structure, unspecified site]Onset: 521409-42-6881RuixhfmxRktor circulatory disease (3 sources)History of peripheral vascular angioplasty; Translations: [Peripheral vascular angioplasty status]73-30-2246CdrbkxsvQizxs connective tissue disease (20 sources)Pain in limb; Translations: [Pain in unspecified limb]Onset: 636002-95-9578QhzbgwbjZgker connective tissue disease (2 sources)Pain of toes of bilateral feet; Translations: [Pain in right toe(s)] 36-60-4197YyrvsvytAgecn connective tissue disease (1 source)Myalgia, other site; Translations: [Myalgia, other site]Onset: 52-11-5869GjhbwisvIgsgh eye disorders (20 sources)Dry eyes; Translations: [Dry eye syndrome of bilateral lacrimal glands]Onset: 051617-40-0893QpwiavxqVatxi lower respiratory disease (3 sources)Shortness of breath; Translations: [SHORTNESS OF BREATH]Onset: 46-59-9719RbzzeaesYrhzo lower respiratory disease (1 source)Hypoxemia; Translations: [HYPOXEMIA]Onset: 89-16-7897YeolzshkWgzwo nutritional; endocrine; and metabolic disorders (20 sources)Overweight; Translations: [Overweight]Onset: EpisodicOther screening for suspected conditions (not mental disorders or infectious disease) (20 sources)Patient encounter status; Translations: [Encounter for screening mammogram for malignant neoplasm of breast]Onset: 884779-17-3742Qwxusito Residual codes; unclassified (1 source)Patient's intentional underdosing of medication regimen for other reason; Translations: [PT INTENT UNDERDOS MED OTH REASON]Onset: 07-02-2022 EpisodicResidual codes; unclassified (1 source)Acute pain; Translations: [Pain, unspecified]71-18-1035Byhsoeky Unclassified (1 source)CONTACT W/AND (SUSP) EXPOS COVID-19; Translations: [CONTACT W/AND (SUSP) EXPOS COVID-19]Onset: 00-09-5669Rgnsajoscneq (13 sources)DM with PDR without ME (chief complaint)Onset: 06-30-2024 Resolved: 38-91-4962Zwnwnvtreido (5 sources)Possible VH (chief complaint)Onset: 42-15-7593Ymzmrbcnrtlh (5 sources)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)Onset: 09-27-2022 Unclassified (5 sources)diabetic eye exam (chief complaint) NO VISION CHANGES (chief complaint)Onset: 51-96-4888Yqrcpueteyjn (10 sources)diabetic retinopathy (chief complaint) denies vision changes (chief complaint)Onset: 10-26-2019 Resolved: 91-47-2022Gpypptuwchjs (5 sources)diabetic retinopathy (chief complaint) denies new vision change (chief complaint)Onset: 38-98-8094Mkhuhbnibeqk (5 sources)diabetic retinopathy (chief complaint) Decreased vision (chief complaint)Onset: 77-18-8936Rploictdcbne (6 sources)PDR (chief complaint)Onset: 08-04-2024 Resolved: 78-16-6394Clvjginzisco (2 sources)Patient encounter xyazhs57-60-8351Zqialshgjhlb (1 source)blurred vision (chief complaint)Onset: 65-78-9517Jhqfgdh tract infections (1 source)Urinary tract infection, site not specified; Translations: [UTI SITE NOT SPECIFIED]Onset: 75-29-0814Pbmgflar Results Test NameValueInterpretationReference RangeFacilityBasic Metabolic Panelon 98-38-8011Kxvlxfxknv Clr Calc Dgfqogcz44.79NormBaptist Medical Center [facility] Comment on above:Result Comment: PERFORMED BY: [place] [address] PATHOLOGIST COMMISSION CLERK ARCHIE MENDOZA M.D.Performed By: #### BMP #### [facility] [address] [place] [address] USAGFR/1.73 sq M.predicted MDRD (S/P/Bld) [Vol rate/Area] 46.982 mL/min/{1.73_m2}NormalDelray Medical Center Physician GroupComment on above: Performed By: #### BMP #### [facility] [address] [place], [place] [id number] USACalcium [Mass/volume] in Serum or PlasmaOrdered By: Shamar Bowles on 00-88-1275Zppieey [Mass/Vol]9.5 mg/dLNormal8.6-10.3FProMedica Defiance Regional HospitalComment on above:Performed By: #### BMP #### [facility] [address] [id number] USACapillary blood glucose measurement by glucometer (mass/volume)Ordered By: Alexis Gilmore on 02-05-3712Ekwncer [Mass/Vol]209 mg/dL [facility] HospitalComment on above:Random Glucose Reference Range is [...] Serum or PlasmaOrdered By: Shamar Bowles on 36-34-4455TD3 [Moles/Vol]26.0 mmol/WBumcxf86.0-31.0[facility] CenterComment on above:Performed By: #### BMP #### [facility] [address] [place] [address] USAChloride [Moles/volume] in Serum or PlasmaOrdered By: Shamar Bowles on 17-42-4031Uyokosiz [Moles/Vol]102 mmol/OJhvlyx67-954YsivjzyqsAshtabula County Medical CenterComment on above:Performed By: #### BMP #### [facility] [address] [id number] USACreatinine [Mass/volume] in Serum or PlasmaOrdered By: Shamar Bowles on 89-84-2221Iocgunfbvc [Mass/Vol]1.23 mg/dLHigh0.60-1.20[facility] Medical CenterComment on above:Performed By: #### BMP #### [facility] [address] [id number] USAGLUCOSE POCT GLUCOMETERSon 08-94-6590QOGYJVL4Lbq2: Cleaned MeterNOMS HealthcareGlucose [Mass/Vol]209 mg/dLNOMS HealthcareComment on above: Random Glucose Reference Range is dependent on time and content of last meal. Glucose of more than 200 mg/dL in a nonstressed, ambulatory subject supports the diagnosis of Diabetes Mellitus. NOMS MoylccicprLTXKOYV2Kjj8: Cleaned MeterNOMS HealthcareGlucose [Mass/Vol]241 mg/dLNOMS HealthcareComment on [...] Blood by CreatinineOrdered By: Shamar Bowles on 13-19-6498Skilrihacu filtration rate [Volume Rate/Area] in Serum, Plasma or Blood by Ubiwqcscyv85.982 mL/Min [facility] CenterGlucose Poct Glucometerson 42-33-4854Xbpwfev8 Glu2: Cleaned MeterViera Hospital Physician GroupComment on above:Result Comment: PERFORMED BY: [place] [address] PATHOLOGIST COMMISSION CLERK ARCHIE MENDOZA M.D.Performed By: #### GLULS #### Point of Care testing ,Ogiekhg8Mjs7: Cleaned MeterNoColumbus Regional Healthcare System Physician GroupComment on above: Result Comment: PERFORMED BY: [place] [address] PATHOLOGIST COMMISSION CLERK ARCHIE MENDOZA M.D.Performed By: #### GLULS #### Point of Care testing ,Glucose [Mass/Vol]241 mg/dLViera Hospital Physician GroupComment on above: Result Comment: Random Glucose Reference Range is dependent on time and content of last meal. Glucose of more than 200 mg/dL in a nonstressed, ambulatory subject supports the diagnosis of Diabetes Mellitus.Performed By: #### GLULS #### Point of Care testing ,Glucose [Mass/Vol]261 mg/dLViera Hospital Physician GroupComment on above: Result Comment: Random Glucose Reference Range is dependent on time and content of last meal. Glucose of more than 200 mg/dL in a nonstressed, ambulatory subject supports the diagnosis of Diabetes Mellitus. PERFORMED BY: [place] [address] PATHOLOGIST COMMISSION CLERK ARCHIE MENDOZA M.D.Performed By: #### GLULS #### Point of Care testing ,Glucose [Mass/volume] in Serum or PlasmaOrdered By: Shamar Bowles on 07-22-2025 Glucose [Mass/Vol]239 mg/lMPjrl89-572IjwdccoosAshtabula County Medical CenterComment on above:ADA recommended reference rangeRandom Glucose Reference [...] recommended reference rangePerformed By: #### BMP #### [facility] [address] [place] [address] USANo Panel InformationOrdered By: Alexis Gilmore on 91-20-0673Yrlpjjg Glucose CommentGlu2: cleaned meterAshtabula County Medical CenterNo Panel InformationOrdered By: Shamar Bowles on 57-50-8124Sbolnyec Creatinine Clearance (Chem41.79[facility] Medical CenterPotassium [Moles/volume] in Serum or PlasmaOrdered By: Shamar Bowles on 98-28-8356Uhbtwhdbr [Moles/Vol]4.9 mmol/LNormal3.5-5.1FProMedica Defiance Regional HospitalComment on above:Performed By: #### BMP #### [place] [address] USASerum or plasma anion gap determinationOrdered By: Shamar Bowles on 33-75-0494Lthmz gap [Moles/Vol]11.9 mmol/LNormal6.0-15.0As[facility]ula County Medical CenterComment on above:Performed By: #### BMP #### [place] [address] USASodium [Moles/volume] in Serum or PlasmaOrdered By: Shamar Bowles on 08-51-2927Lffaxr [Moles/Vol]135 mmol/JGxe045-060VfojsnqriAshtabula County Medical CenterComment on above:Performed By: #### BMP #### [place] [address] USAUrea nitrogen [Mass/volume] in Serum or PlasmaOrdered By: Shamar Bowles on 16-53-8419Siyb nitrogen [Mass/Vol]38 mg/dLHigh7-25Asht[facility]ula County Medical CenterComment on above:Performed By: #### BMP #### [address] [place] [address] USAALBUMIN, RANDOM URINE W/CREATININEon 10-26-5784QACFEVN, URINE0.4 mg/dLNormalSee Note:Quest DiagnosticsComment on above:Result Comment: Reference Range: Reference Range Not establishedPerformed By: #### 1759, 66284, 7600, 6517, 899 #### [facility] [place] [address] Gameplay Engineer: Jensen Johnson MDALBUMIN/CREATININE RATIO, RANDOM URINE13 mg/g [...] within a diagnostic category.Performed By: #### 1759, 40598, 0, 6517, 899 #### [facility] [place] [address] Gameplay Engineer: Jensen Johnson MDCreatinine (U) [Mass/Vol]31 mg/uCFauvrh92-170 Quest DiagnosticsComment on above:Performed By: #### 1759, 95868, 7600, 6517, 899 #### [facility] [place] [address] Gameplay Engineer: Jensen Johnson MDCBC (H/H, RBC, INDICES, WBC, PLT)on 07-21-2025 Erythrocyte distribution width (RBC) [Ratio]14.1 %Aaascb04.0-15.0Quest DiagnosticsComment on above:Performed By: #### 1759, 51553, 7600, 6517, 899 #### [facility] of [place] [address] Gameplay Engineer: Jensen Johnson MDHematocrit (Bld) [Volume fraction]35.6 %Normal 35.0-45.0Quest DiagnosticsComment on above:Performed By: #### 1759, , 7599, 65, 899 #### [facility] [address], [address] [place] [address] Gameplay Engineer: Jensen Johnson MDHemoglobin (Bld) [Mass/Vol]10.9 g/dLLow 11.7-15.5Quest DiagnosticsComment on above:Performed By: #### 1759, , 7599, 65, 899 #### [facility] [address], [address] [place] [address] Gameplay Engineer: Jensen Johnson MDMCH (RBC) [Entitic mass]28.2 fyWrdpkb85.0-33.0 Quest DiagnosticsComment on above:Performed By: #### 1759, , 7599, 65, 899 #### [facility] [address], [address] [place] [address] Gameplay Engineer: Jensen BELLAMYCHC (RBC) [Mass/Vol]30.6 g/dLLow32.0-36.0 Quest DiagnosticsComment on above:Result Comment: For adults, a slight decrease in the calculated MCHC value (in the range of 30 to 32 g/dL) is most likely not clinically significant; however, it should be interpreted with caution in correlation with other red cell parameters and the patient's clinical condition.Performed By: #### 175, , 7599, 65, 899 #### [facility] [place] [address] Gameplay Engineer: Jensen Johnson MDMCV (RBC) [Entitic vol]92.2 eZSrmypr20.0-100.0 Quest DiagnosticsComment on above:Performed By: #### 1759, , 7599, 65, 899 #### [facility] [address], [address] [place] [address] Gameplay Engineer: Jensen Johnson MDPlatelet mean volume (Bld) [Entitic vol]11.3 fLNormal7.5-12.5Quest DiagnosticsComment on above:Performed By: #### 1759, 11836, 7600, 6517, 899 #### [facility] of [address], [address] [place] [address] Gameplay Engineer: Jensen Johnson [facility] ([facility]) [#/Vol]211 10*3/uLNormal 140-400Quest DiagnosticsComment on above:Performed By: #### 1759, 08873, 7600, 6517, 899 #### [facility] of [address], [address] [place] [address] Gameplay Engineer: Jensen Johnson [facility] ([facility]) [#/Vol]3.86 10*6/uLNormal3.80-5.10 Quest DiagnosticsComment on above:Performed By: #### 1759, 65037, 7600, 6517, 899 #### [facility] of [address], [address] [place] [address] Gameplay Engineer: Jensen Johnson [facility]DLONG [facility] ([facility]) [#/Vol]9.7 10*3/uLNormal3.8-10.8 Quest DiagnosticsComment on above:Performed By: #### 1759, 61349, 7600, 6517, 899 #### [facility] of [address], [address] [place] [address] Gameplay Engineer: Jensen Johnson MDCOMPREHENSIVE METABOLIC PANELon 07-21-2025 Albumin [Mass/Vol]4.3 g/dLNormal3.6-5.1Quest DiagnosticsComment on above: Performed By: #### 1759, 62564, 7600, 6517, 899 #### [facility] of [place] [address] Gameplay Engineer: Jensen Johnson MDAlbumin/Globulin [Mass ratio]1.7 {ratio}Normal 1.0-2.5Quest DiagnosticsComment on above:Performed By: #### 1759, 21194, 7600, 6517, 899 #### [facility] of [address], [address] [place] [address] Gameplay Engineer: Jensen Johnson MDALP [Catalytic activity/Vol]109 U/LNormal 37-153Quest DiagnosticsComment on above:Performed By: #### 1759, 11862, 7600, 6517, 899 #### [facility] of [address], [address] [place] [address] Gameplay Engineer: Jensen oJhnson MDALT [Catalytic activity/Vol]13 U/LNormal6-29 Quest DiagnosticsComment on above:Performed By: #### 1759, 49411, 7599, 6517, 899 #### [facility] of [address], [address] [place] [address] Gameplay Engineer: Jensen Johnson MDAST [Catalytic activity/Vol]14 U/ETfudey14-44 Quest DiagnosticsComment on above:Performed By: #### 1759, 90210, 7599, 6517, 899 #### [facility] of [place] [address] Gameplay Engineer: Jensen Johnson MDBilirubin [Mass/Vol]0.3 mg/dLNormal0.2-1.2 Quest DiagnosticsComment on above:Performed By: #### 1759, 42710, 7599, 6517, 899 #### [facility] [place] [address] Gameplay Engineer: Jensen Johnson MDCalcium [Mass/Vol]9.2 mg/dLNormal8.6-10.4Quest DiagnosticsComment on above:Performed By: #### 1759, 65597, 7599, 6517, 899 #### [facility] [place] [address] Gameplay Engineer: Jensen Johnson MDChloride [Moles/Vol]101 mmol/ASjuoim83-632 Quest DiagnosticsComment on above:Performed By: #### 1759, 65188, 760, 6517, 899 #### [facility] [place] [address] Gameplay Engineer: Jensen Johnson MDCO2 [Moles/Vol]18 mmol/BZas49-46Aznvc DiagnosticsComment on above:Performed By: #### 1759, 59463, 7600, 6517, 899 #### [facility] [place] [address] Gameplay Engineer: Jensen BUSTOSreatinine [Mass/Vol]1.52 mg/dLHigh0.60-1.00 Quest DiagnosticsComment on above:Performed By: #### 1759, 32957, 0, 6517, 899 #### [facility] [place] [address] Gameplay Engineer: Jensen Johnson MDGFR/1.73 sq M.predicted among non-blacks MDRD (S/P/Bld) [Vol rate/Area]36 mL/min/{1.73_m2}Low> OR = 60Quest DiagnosticsComment on above:Performed By: #### 1759, 39036, 0, 6517, 899 #### [facility] [place] [address] Gameplay Engineer: Jensen Johnson MDGlobulin (S) [Mass/Vol]2.5 g/dLNormal1.9-3.7 Quest DiagnosticsComment on above:Performed By: #### 1759, 40905, 7600, 6517, 899 #### [facility] [place] [address] Gameplay Engineer: Jensen Johnson MDGlucose [Mass/Vol]258 mg/tXDsta88-71Hznis DiagnosticsComment on above:Result Comment: Fasting reference interval For someone without known diabetes, a glucose value >125 mg/dL indicates that they may have diabetes and this should be confirmed with a follow-up test.Performed By: #### 1759, 42474, 7600, 6517, 899 #### [facility] of [address], [address] [place] [address] Gameplay Engineer: Jensen Johnson MDPotassium [Moles/Vol]5.3 mmol/LNormal3.5-5.3 Quest DiagnosticsComment on above:Performed By: #### 1759, 84239, 7600, 6517, 899 #### [facility] of [address], [address] [place] [address] Gameplay Engineer: Jensen Johnson MDProtein [Mass/Vol]6.8 g/dLNormal6.1-8.1Quest DiagnosticsComment on above:Performed By: #### 1759, 90536, 7600, 6517, 899 #### [facility] of [address], [address] [place] [address] Gameplay Engineer: Jensen Johnson MDSodium [Moles/Vol]137 mmol/ZPwdpvp139-179Rcuel DiagnosticsComment on above:Performed By: #### 1759, 11351, 7600, 6517, 899 #### [facility] of [address], [address] [place] [address] Gameplay Engineer: Jensen Johnson MDUrea nitrogen [Mass/Vol]57 mg/dLHigh7-25Quest DiagnosticsComment on above:Performed By: #### 1759, 54386, 7600, 6517, 899 #### [facility] of [place] [address] Gameplay Engineer: Jensen Johnson MDUrea nitrogen/Creatinine [Mass ratio]38 mg/mg High6-22Quest DiagnosticsComment on above:Performed By: #### 1759, 69536, 7600, 6517, 899 #### [facility] of [place] [address] Gameplay Engineer: Jensen Johnson MDLIPID PANEL, STANDARD 47-29-5670Ewagzqcqojn [Mass/Vol]187 mg/dLNormal<200Quest DiagnosticsComment on above:Order Comment: FASTING:YES FASTING: YESPerformed By: #### 1759, 22063, 7600, 6517, 899 #### [facility] [address], [address] [place] [address] Gameplay Engineer: Jensen BUSTOSholesterol in HDL [Mass/Vol]32 mg/dLLow> OR = 50Quest DiagnosticsComment on above:Order Comment: FASTING:YES FASTING: YESPerformed By: #### 1759, 59769, 7600, 6517, 899 #### [facility] [address], [address] [place] [address] Gameplay Engineer: Jensen BUSTOSholestheidi.total/Cholesterol in HDL [Mass ratio]5.8 {ratio}High<5.0Quest DiagnosticsComment on above:Order Comment: FASTING:YES FASTING: YESPerformed By: #### 1759, 68786, 7600, 6517, 899 #### [facility] [address], [address] [place] [address] Gameplay Engineer: Jensen Johnson MDLDL-CHOLESTEROLNormalQuest DiagnosticsComment on above:Order Comment: [...] LDL-C. Antonio QIU et al. LAURY. 2013;310(19): 5507-2607 (http://education.[employer].Wonderflow/faq/CUD358)Performed By: #### 1759, 96924, 7600, 6517, 899 #### [facility] [address], [address] [place] [address] Gameplay Engineer: Jensen NEW HDL JQRVAVWFAGP979 mg/dL (calc)High<130 Quest DiagnosticsComment on above:Order Comment: FASTING:YES FASTING: YESResult Comment: For patients with diabetes plus 1 major ASCVD risk factor, treating to a non-HDL-C goal of <100 mg/dL (LDL-C of <70 mg/dL) is considered a therapeutic option.Performed By: #### 1759, 27881, 7600, 6517, 899 #### [facility] [address], [address] [place] [address] Gameplay Engineer: Jensen Johnson MDTriglyceride [Mass/Vol]863 mg/dLHigh<150Quest DiagnosticsComment on [...] of Clin. Lipidol. 2015;9:129-169.Performed By: #### 1759, 68140, 7600, 6517, 899 #### [facility] [address], [address] [place] [address] Gameplay Engineer: Jensen Baez 26-34-4852BTX Qn1.88 m[IU]/LNormal 0.40-4.50Quest DiagnosticsComment on above:Performed By: #### 1759, 23830, 7600, 6517, 899 #### [facility] [address], [address] [place] [address] Gameplay Engineer: Jensen Johnson MDHbA1c (Bld) [Mass fraction]on 07-20-2025 Interpretation and review of laboratory resultsAbnoPrisma Health Hillcrest [facility] HealthcareLaboratory - Hematology and Cell countson 56-85-1479RbU6a (Bld) [Mass fraction]8 %NOMS HealthcareBasic Metabolic Panelon 64-31-5438YLN/1.73 sq M.predicted MDRD (S/P/Bld) [Vol rate/Area]33.025 mL/min/{1.73_m2}NormalThe [facility] Physician GroupComment on above:Performed By: #### BMP, CBC #### [facility] [address] [place] [address] USABasic metabolic 1998 panelon 52-64-3046Zaeyy gap [Moles/Vol]14.3 mmol/L6.0 - 15.0NOMS HealthcareCalcium [Mass/Vol]8.7 mg/dL8.6 - 10.3 mg/dLNOMS HealthcareChloride [Moles/Vol]100 mmol/L98 - 107 mmol/LNOMS HealthcareCO2 [Moles/Vol]23.8 mmol/L21.0 - 31.0 mmol/LNOMS HealthcareCreatinine (U) [Mass/Vol]1.65 mg/dLHigh0.60 - 1.20 mg/dLNOMS HealthcareGFR/1.73 sq M.predicted MDRD (S/P/Bld) [Vol rate/Area]33.025 mL/min/{1.73_m2}[facility] Glucose [Mass/Vol]225 mg/uXQtzd10 - 100 mg/dLNOCT HealthcareComment on above: Random Glucose Reference Range is dependent on time and content of last meal. Glucose of more than 200 mg/dL in a nonstressed, ambulatory subject supports the diagnosis of Diabetes Mellitus. ADA recommended reference range Interpretation and review of laboratory resultsAbnormalNOMS HealthcarePotassium [Moles/Vol]5.1 mmol/L3.5 - 5.1 mmol/LNOMS HealthcareSodium [Moles/Vol]133 mmol/L Shd233 - 145 mmol/LNOMS HealthcareUrea nitrogen [Mass/Vol]51 mg/dLHigh7 - 25 mg/dLNOCT HealthcareNOMS HealthcareBasophils [#/volume] in Blood by Automated countOrdered By: Alexis Gilmore on 84-11-1809Puqnzdjev (Bld) [#/Vol]0.1 10*3/uL Normal0.0-0.2FProMedica Defiance Regional HospitalComment on above:Result Comment: PERFORMED BY: [facility] [address] [facility] [place] [address] PATHOLOGIST COMMISSION CLERK ARCHIE MENDOZA M.D.Performed By: #### BMP, CBC #### [facility] [address] [place] [address] USABasophils/100 leukocytes in Blood by Automated count Ordered By: Alexis Gilmore on 38-47-5305Qwkhvknne/100 WBC (Bld)0.8 %Normal. [facility] County Medical CenterComment on above:Performed By: #### BMP, CBC #### [facility] [address] [place] [address] USACBC W Auto Differential panel (Bld)on 81-50-6823Jhexdrscw (Bld) [#/Vol]0.1 10*3/uL0.0 - 0.2 10*3/uLNOMS HealthcareBasophils/100 WBC Manual cnt (Syn fld)0.8 %.[facility] HospitalEosinophils (Bld) [#/Vol]0.3 10*3/uL0.0 - 0.45 10*3/uLNOMS HealthcareEosinophils/100 WBC Manual cnt (Syn fld)3.1 %.[facility] HospitalErythrocyte distribution width (RBC) [Ratio]14.5 %11.9 - 15.3 %[facility] HospitalHematocrit (Bld) [Volume fraction]32 %Low34.0 - 46.4 %[facility] Hemoglobin (Bld) [Mass/Vol]10.9 g/dLLow11.8 - 15.4 g/dLPershing Memorial Hospital Interpretation and review of laboratory resultsAbnormLifecare Hospital of Pittsburgh Lymphocytes (Bld) [#/Vol]3.4 10*3/uL1.00 - 4.8 10*3/uLNOCT Healthcare Lymphocytes/100 WBC Manual cnt (Syn fld)35.4 %.[facility] CampusH (RBC) [Entitic mass]28.6 pg24.7 - 34.3 pgResearch Medical Center-Brookside CampusHC (RBC) [Mass/Vol]34.1 g/dL32.0 - 35.0 g/dLResearch Medical Center-Brookside CampusV (RBC) [Entitic vol]84 fL80 - 100 fLPershing Memorial Hospital Monocytes (Bld) [#/Vol]1 10*3/uLHigh0.0 - 0.8 10*3/uLPershing Memorial Hospital Monocytes+Macrophages/100 WBC Manual cnt (Syn [...] Serum or PlasmaOrdered By: Alexis Gilmore on 96-78-9175Nxbiqsi [Mass/Vol]8.7 mg/dLNormal8.6-10.3FProMedica Defiance Regional HospitalComment on above:Result Comment: PERFORMED BY: [place] [address] PATHOLOGIST COMMISSION CLERK ARCHIE MENDOZA M.D.Performed By: #### BMP, CBC #### [facility] [address] [place] [address] USACarbon dioxide, total [Moles/volume] in Serum or Plasma Ordered By: Alexis Gilmore on 84-86-0870NY6 [Moles/Vol]23.8 mmol/LNormal 21.0-31.0[facility] Medical CenterComment on above:Performed By: #### BMP, CBC #### [facility] [address] [place] [address] USAChloride [Moles/volume] in Serum or PlasmaOrdered By: Alexis Gilmore on 93-74-1859Ugeakgsl [Moles/Vol]100 mmol/MVzufdi58-519OuccrzncaAshtabula County Medical CenterComment on above:Performed By: #### BMP, CBC #### [facility] [address] [place] [address] USAComplete Blood Count Auto Diffon 45-18-1114Dgkt Corpuscular HGB Conc34.1 g/pCYmowmk11.0-35.0The [facility] Physician GroupComment on above:Performed By: #### BMP, CBC #### [facility] [address] [place] [address] USANRBC%0.1 /100{WBC}Normal0-0.5The [facility] Physician [facility] Comment on above:Performed By: #### BMP, CBC #### [place] [address] USAWhite Blood Count9.5 [CFU]/mLNormal3.8-11.6The [facility] Physician [facility] State HospitalComment on above:Performed By: #### BMP, CBC #### [facility] [address] [place] [address] USACreatinine [Mass/volume] in Serum or PlasmaOrdered By: Alexis Gilmore on 99-98-1789Gzaaroflpj [Mass/Vol]1.65 mg/dLHigh0.60-1.20 [facility] Medical CenterComment on above:Performed By: #### BMP, CBC #### [place] [address] USAECG 12 lead ECGon 07-27-0734QZK 12 lead ECGTRIHEALTH [facility] [place] [address] Electrocardiograph Report Signed Patient: Diann Patel MR#: [id number] 525 : 1955 Acct:[id number] Age/Sex: 70 / F ADM Date: 07/19/25 Loc: PS Room: Type: [facility] Attending Dr: Alexis Gilmore DPM Ordering Provider: [...] in Anterolateral leads Confirmed by Valente Ramirez ([id number]) on 07/20/2025 8:47:41 AM Referred By: Electronically Signed By: Valente Ramirez Transcribed By: MUS Signed By Valente Ramirez MD 07/20/25 0847[facility] Physician GroupEosinophils [#/volume] in Blood by Automated countOrdered By: Alexis Gilmore on 70-99-6910Rscqpyxnvag (Bld) [#/Vol]0.3 10*3/uLNormal0.0-0.45[facility] Medical CenterComment on above:Performed By: #### BMP, CBC #### [facility] [address] [place] [address] USAEosinophils/100 leukocytes in Blood by Automated count Ordered By: Alexis Gilmore on 34-33-0787Nmbogqunuhp/100 WBC (Bld)3.1 %Normal. [facility] Medical CenterComment on above:Performed By: #### BMP, CBC #### [facility] [address] [place] [address] USAErythrocyte distribution width [Ratio] by Automated count Ordered By: Alexis Gilmore on 78-20-6502Vvwpekmlwjc distribution width (RBC) [Ratio]14.5 %Vhroao65.9-15.3FProMedica Defiance Regional HospitalComment on above: Performed By: #### BMP, CBC #### [facility] [address] [place] [id number] USAErythrocytes [#/volume] in Blood by Automated countOrdered By: Alexis Gilmore on 02-14-4532CHA (Bld) [#/Vol]3.82 10*6/uLNormal3.60-5.00 [facility] Medical CenterComment on above:Performed By: #### BMP, CBC #### [facility] [address] [place] [id number] USAGlomerular filtration rate [Volume Rate/Area] in Serum, Plasma or Blood by CreatinineOrdered By: Alexis Gilmore on 05-68-1417Iwgedjslwg filtration rate [Volume Rate/Area] in Serum, Plasma or Blood by Nxmlpgwoqc66.025 mL/MinAshtabula County Medical CenterGlucose [Mass/volume] in Serum or Plasma Ordered By: Alexis Gilmore on 55-95-2976Thybeon [Mass/Vol]225 mg/tWHaiy19-780 [facility] Medical CenterComment on above:ADA recommended reference rangeRandom Glucose Reference [...] reference rangePerformed By: #### BMP, CBC #### [place] [id number] USAHematocrit [Volume Fraction] of Blood by Automated count Ordered By: Alexis Gilmore on 92-36-9370Lhixwzwyvy (Bld) [Volume fraction]32.0 % Low34.0-46.4FProMedica Defiance Regional HospitalComment on above:Performed By: #### BMP, CBC #### [place] [id number] USAHemoglobin [Mass/volume] in BloodOrdered By: Alexis Gilmore on 33-17-9877Rqarlxslfo (Bld) [Mass/Vol]10.9 g/dLLow11.8-15.4FProMedica Defiance Regional HospitalComment on above:Performed By: #### BMP, CBC #### [place] [id number] USALeukocytes [#/volume] corrected for nucleated erythrocytes in Blood by Automated counOrdered By: Alexis Gilmore on 27-09-2990VCX corrected for nucl RBC Auto (Bld) [#/Vol]9.5 10*3/uL3.8-11.6FProMedica Defiance Regional HospitalLeukocytes [#/volume] in Blood by Automated countOrdered By: Alexis Gilmore on 60-69-3323PFP (Bld) [#/Vol]9.5 10*3/uLNormal3.8-11.6FProMedica Defiance Regional HospitalComment on above:Performed By: #### BMP, CBC #### [facility] [address] [place] [address] USALymphocytes [#/volume] in Blood by Automated countOrdered By: Alexis Gilmore on 77-88-0726Hrjnzboolnj (Bld) [#/Vol]3.4 10*3/uLNormal 1.00-4.8[facility] Medical CenterComment on above:Performed By: #### BMP, CBC #### [facility] [address] [place] [id number] USALymphocytes/100 leukocytes in Blood by Automated count Ordered By: Alexis Gilmore on 38-88-1008Jkaynkqkhnn/100 WBC (Bld)35.4 %Normal. [facility] Medical CenterComment on above:Performed By: #### BMP, CBC #### [facility] [address] [place] [id number] [facility] [Entitic mass] by Automated countOrdered By: Alexis Gilmore on 01-61-7630KQY (RBC) [Entitic mass]28.6 mfZzxnvu23.7-34.3FProMedica Defiance Regional HospitalComment on above:Performed By: #### BMP, CBC #### [facility] [address] [place] [id number] [facility] Auto (RBC) [Mass/Vol]Ordered By: Alexis Gilmore on 93-27-1011XVHM (RBC) [Mass/Vol]34.1 g/dL32.0-35.0[facility] Medical CenterMCV [Entitic volume] by Automated countOrdered By: Aelxis Gilmore on 83-39-4219EPZ (RBC) [Entitic vol]84.0 aJSknowb79-098QfcryoxyvAshtabula County Medical CenterComment on above:Performed By: #### BMP, CBC #### [facility] [address] [place] [address] USAMonocytes [#/volume] in Blood by Automated countOrdered By: Alexis Gilmore on 37-38-4728Wmeqetcqz (Bld) [#/Vol]1.0 10*3/uLHigh0.0-0.8 [facility] CenterComment on above:Performed By: #### BMP, CBC #### [facility] [address] [place] [id number] USAMonocytes/100 leukocytes in Blood by Automated count Ordered By: Alexis Gilmore on 21-70-1111Raulqlwiu/100 WBC (Bld)10.1 %Normal. [facility] Medical CenterComment on above:Performed By: #### BMP, CBC #### [place] [address] USANeutrophils [#/volume] in Blood by Automated countOrdered By: Alexis Gilmore on 40-22-4072Ernsgcluqqd (Bld) [#/Vol]4.8 10*3/uLNormal 1.8-7.7FProMedica Defiance Regional HospitalComment on above:Performed By: #### BMP, CBC #### [facility] [address] [place], [place] [id number] USANeutrophils/100 leukocytes in Blood by Automated count Ordered By: Alexis Gilmore on 84-58-6290Layyqgqzplt/100 WBC (Bld)50.6 %Normal. [facility] Medical CenterComment on above:Performed By: #### BMP, CBC #### [facility] [address] [place], [place] [address] USANo Panel InformationOrdered By: Alexis Gilmore on 87-87-5751Cmxnoifb Creatinine Clearance (ChemN/AFProMedica Defiance Regional HospitalNucleated erythrocytes [Presence] in Blood by Automated countOrdered By: Alexis Gilmore on 65-38-2225Ezxwrjitn RBC Auto Ql (Bld)0.1 /100{WBC}0-0.5 [facility] Medical CenterPlatelet mean volume [Entitic volume] in Blood by Automated countOrdered By: Alexis Gilmore on 42-86-6503Hybqrmtf mean volume (Bld) [Entitic vol]9.0 fLNormal6.3-10.7FProMedica Defiance Regional HospitalComment on above:Performed By: #### BMP, CBC #### [facility] [address] [place] [address] USAPlatelets [#/volume] in Blood by Automated countOrdered By: Alexis Gilmore on 83-45-0748Ohjcuymdh (Bld) [#/Vol]215 10*3/lOVyucwd931-220 [facility] CenterComment on above:Performed By: #### BMP, CBC #### [facility] [address] [place] [address] USAPotassium [Moles/volume] in Serum or PlasmaOrdered By: Alexis Gilmore on 20-63-5475Euwvwgadl [Moles/Vol]5.1 mmol/LNormal3.5-5.1 [facility] Medical CenterComment on above:Performed By: #### BMP, CBC #### [facility] [address] [place] [address] USASerum or plasma anion gap determinationOrdered By: Alexis Gilmore on 31-96-6960Bvjlx gap [Moles/Vol]14.3 mmol/LNormal6.0-15.0 [facility] County Medical CenterComment on above:Performed By: #### BMP, CBC #### [facility] [address] [place] [address] USASodium [Moles/volume] in Serum or PlasmaOrdered By: Alexis Gilmore on 73-68-0210Lnldud [Moles/Vol]133 mmol/CZhp666-569HqmemmkptAshtabula County Medical CenterComment on above:Performed By: #### BMP, CBC #### [facility] [address] [place] [id number] USAUrea nitrogen [Mass/volume] in Serum or PlasmaOrdered By: Alexis Gilmore on 82-20-2734Qitr nitrogen [Mass/Vol]51 mg/dLHigh7-25As[facility] County Medical CenterComment on above:Performed By: #### BMP, CBC #### [place] [address] USAPATHOLOGY REQUEST FOR LAB CORPon 17-22-4512SBCBUQTZQ REQUEST FOR LAB [facility] for Restorative CareComment on above:See report. Scanned copy available in EMR.GI SPECIMENBellin Health's Bellin Psychiatric Centerillary blood glucose measurement by glucometer (mass/volume)Ordered By: Dale Fox on 06-09-2025 Glucose [Mass/Vol]269 mg/dLNoProMedica Toledo HospitalComment on above:Random Glucose Reference Range is [...] Point of Care testing ,GLUCOSE POCT GLUCOMETERSon 67-12-1710SHCCDDG0Otm6: Cleaned MeterPershing Memorial Hospital Glucose [Mass/Vol]269 mg/dLPershing Memorial HospitalComment on above:Random Glucose Reference Range is dependent on time and content of last meal. Glucose of more than 200 mg/dL in a nonstressed, ambulatory subject supports the diagnosis of Diabetes Mellitus. NOMS HealthcareGlucose Poct Glucometerson 69-58-3247Yibgihz3Mqg6: Cleaned Meter NormalThe Yad[facility] Community Hospital Physician GroupComment on above:Result Comment: PERFORMED BY: [place] [address] PATHOLOGIST COMMISSION CLERK ARCHIE MENDOZA M.D.Performed By: #### GLULS #### Point of Care testing ,No Panel InformationOrdered By: Dale Fox on 74-48-1549Iquhsodffhvpy Pathology TestSee Miami Valley HospitalComment on above:See report. Scanned copy available in EMR.Bedside Glucose CommentGlu2: cleaned meter [facility] Medical CenterPathology Request for Lab Corpon 06-09-2025 Pathology Request for Lab [facility] Physician GroupComment on above:Order Comment: GI SPECIMENResult Comment: See report. Scanned copy available in EMR. PERFORMED BY: [facility] [id number] PATHOLOGIST COMMISSION CLERK ARCHIE MENDOZA M.D.Performed By: #### PATH TO [facility] #### [place] [id number] USAOffice Visiton 94-53-9264Rupnar-up [id number] Diann Patel 1955 F Date Provider Department Center 05/30/2025 VALENTE BALTAZAR CONCEPCIÓN [place] Family History Problem Relation Age of Onset Diabetes Mother Cancer Mother Heart disease Father Alcohol abuse Brother Diabetes Brother Family Status - Relation Status Age at Mother Father Sister Brother Level of Service:25856 IN OFFICE/OUTPATIENT ESTABLISHED MOD MDM 30 [facility] HospitalOffice Visiton 90-04-9247Hvefvw-up visit [id number] Diann Patel 1955 F Date Provider Department Center 04/26/2025 47009-QXNXLYDRMGET NORRIS*[facility] Pavi Family History Problem Relation Age of Onset Diabetes Mother Cancer Mother Heart disease Father Alcohol abuse Brother Diabetes Brother Family Status - Relation Status Age at Mother Father Sister Brother Level of Service:35939 IN OFFICE/OUTPATIENT NEW MODERATE MDM 45 MINUTES Reason for Visit and Comments: New Patient [632] Anemia [556377]NormalSelect Medical Specialty Hospital - AkronHbA1c (Bld) [Mass fraction]on 39-25-6798Vwdrjjstokmyjd and review of laboratory resultsAbnormal [facility] CenterLaboratory - Hematology and Cell countson 65-36-8876PuF8r (Bld) [Mass fraction]7.8 %[place] [address]on Regarding carotid duplex result from 03/07/2025: MD Maria Antonia Pisano MA Carotid ultrasound showed stable disease. Follow up as planned. Patient informed.NormalSelect Medical Specialty Hospital - AkronMammography report Ordered By: Manjula Flannery on 20-53-4149Ytwkagbcey imaging studyUNIVERSITY H[facility]ITALS ST[facility] [address] [place] [address] [address] [place] [address] Mammography Report Signed Patient: Diann Patel MR#: [id number] : 1955 Acct:[id number] Age/Sex: 69 / F Adm Date: 5 Loc: [place] Room: Type: [facility] Attending Dr: Champ Bell II, MD Ordering Provider: Champ Bell II, MD Date of Service: 03/10/25 Procedure(s): MM special view RT w/CAD; US breast RT limited Accession Number(s): ([id number]) MM/MM special view RT w/CAD: ABN MAMM ([id number]) US/US breast RT limited: R92.8 Copies to: [...] Flannery M.D. 03/10/2025 5:08 PM Dictation Location: [facility] Dictated By: Manjula Flannery MD 03/10/25 1512 Signed By: 03/10/25 2497 [facility] Work Phone: us breast RT limitedon 51-12-4235AD breast RT limited [facility] [address] [place] [address] Mammography Report Signed Patient: Diann Patel MR#: [id number] : 1955 Acct:[id number] Age/Sex: 69 / F Adm Date: 03/10/25 Loc: [place] Room: Type: [facility] Attending Dr: Champ Bell II, MD Ordering Provider: Champ Bell II, MD Date of Service: 03/10/25 Procedure(s): MM special view RT w/CAD; US breast RT limited Accession Number(s): ([id number]) MM/MM special view RT w/CAD: ABN MAMM ([id number]) US/US breast RT limited: R92.8 Copies to: [...] Flannery M.D. 03/10/2025 5:08 PM Dictation Location: [facility] Dictated By: Manjula Flannery MD 03/10/25 1514 Signed By: 03/10/[address] [place] [address] Physician Group TOMOSYNTHESIS SCREENING BIon 53-49-4064[place], [place] [address] Mammography Report Signed Patient: DIANN PATEL MR#: [id number] : 1955 Acct:[id number] Age/Sex: 69 / F ADM Date: 03/03/25 Loc: MAMMO Attending Dr: CHAMP BELL Ordering Physician: CHAMP BELL Results: Date of Service: 03/03/25 Follow Up: Procedure(s): MM tomosynthesis screening BI Accession Number(s): [id number] cc: CHAMP BELL Patient Name: DIANN PATEL MR#: [id number] : 1955 Exam Date: 03/03/2025 Ordering Doctor: [...] ovarian cancer at age 49. LOCATION: [facility] BREAST COMPOSITION: There are scattered areas [...] Signed By: 03/03/25 1635 DD/ 1634 TD/TT: District Or District Office Director:TBHRadiology, Radiologist, MD - 03/03/2025 [place] [address] Mammography Report Signed Patient: DIANN PATEL MR#: [id number] : 1955 Acct:[id number] Age/Sex: 69 / F ADM Date: 03/03/25 Loc: MAMMO Attending Dr: CHAPM BELL Ordering Physician: CHAMP BELL Results: Date of Service: 03/03/25 Follow Up: Procedure(s): MM tomosynthesis screening BI Accession Number(s): [id number] cc: BELLCHRYSTALCHAMP Patient Name: DIANN PATEL MR#: [id number] : 1955 Exam Date: 03/03/2025 Ordering Doctor: [...] ovarian cancer at age 49. LOCATION: [facility] BREAST COMPOSITION: There are scattered areas [...] Signed By: 03/03/25 163 DD/ 33 TD/TT: District Or District Office Director: PRIYANKA HealthcareRadiology Study observation (narrative)PRIYANKA [facility] TOMOSYNTHESIS SCREENING BIOrdered By: Radiologist Radiology on 12-19-3082RNZY [employer] Work Phone: Office Visiton 86-56-7530Nijvyz-up [id number] Diann Patel 1955 Provider Department Center 03/02/2025 VALENTE BALTAZAR CONCEPCIÓN Edin Norma Family History Problem Relation Age of Onset Diabetes Mother Cancer Mother Heart disease Father Alcohol abuse Brother Diabetes Brother Family Status - Relation Status Age at Mother Father Sister Brother Level of Service:58721 IN OFFICE/OUTPATIENT ESTABLISHED MOD MDM 30 [facility]36on 02-97-071230Kaouzftwf date: 02/22/25 Call date: 02/23/25 Spoke with: patient HF Follow-up date: 02/25/25 Med reconciliation completed: pt declined Questions/Concerns: Pt denied any SOB or CP. Pt declined to review home meds stating she just reviewed them with someone from her PCP office. Pt is monitoring daily weights and is aware of her follow up telemed visit. No questions or concerns at this time.[facility] Medical CenterDocumentationon 02-23-2025 [id number] DakotaawildaPancho arringtonjose Car 1955 Provider Department Center 02/23/2025 DIPAK YEBOAH C VASC LAB IA HeartVAS Family History Problem Relation Age of Onset Diabetes Mother Cancer Mother Heart disease Father Alcohol abuse Brother Diabetes Brother Family Status - Relation Status Age at Mother Father Brother Reason for Visit and Comments: HF inpatient satisfaction survey sent. [Other][facility] Medical CenterTelephoneon [id number] Diann Patel Josep 1955 Provider Department Center 02/23/2025 DIPAK YEBOAH HVC VASC LAB IA HeartVAS Family History Problem Relation Age of Onset Diabetes Mother Cancer Mother Heart disease Father Alcohol abuse Brother Diabetes Brother Family Status - Relation Status Age at Mother Father Brother Reason for Visit and Comments: HF post discharge call. [Other][id number] went bedside and talked with patient about discharge planing and how patient qualified for 2 L nc at night. Patient stated she has no preference of home health care company and is agreeable to for writer technical publications to set home oxygen through [employer]. Small Business Representative called and talked with Timothy who is with [employer]. Small Business Representative was told to fax over clinicals and to tell patient to call when she leaves the hospital. Small Business Representative faxed over Clinicals to [employer] at [phone]. Small Business Representative went bedside and notified/educated the patient on need to call health care solutions as soon as she leaves the hospital. Small Business Representative provided [employer] phone number to patient and placed it on the AVS. Patient stated she understands and has no other questions at this time.[facility]30The patient is Moderately Unstable - [...] Assess patient???s ability to void and empty bladderNormalUniversBlanchard Valley Health SystemBASIC METABOLIC PANELon 36-92-9122Eyiwv gap [Moles/Vol]12 mmol/LNormal7-20UnMount St. Mary HospitalComment on above:Performed By: #### [id number] #### [facility] ([facility]) [address] [place], [place] [address]Zqabfvo [Mass/Vol]9.3 mg/dLNormal8.6-10.3UnMount St. Mary HospitalComment on above:Performed By: #### [id number] #### [facility] ([facility]) [address] [place], [place] [address]Ktjfpgvs [Moles/Vol]98 mmol/FBcgvru14-557KrookwdqomMount St. Mary HospitalComment on above:Performed By: #### [id number] #### [facility] ([facility]) [address] [place], [place] [address]VM0 [Moles/Vol]30 mmol/EKpljca02-12FaezvxpfgqMount St. Mary HospitalComment on above:Performed By: #### [id number] #### [facility] ([facility]) [address] [place], [place] [address]Hcbzxkmsru [Mass/Vol]1.06 mg/dLNormal0.60-1.20UnMount St. Mary HospitalComment on above:Performed By: #### [id number] #### [facility] ([facility]) [address] [place], [place] [address]CCECCVXSDV FILTRATION RATE ML/MIN/1.73 SQ M.HNEUCHSAE49.5 mL/min/1.73m*2Low>60.0UnMount St. Mary HospitalComment on above:Result Comment: The [facility]???s estimated glomerular filtration rate (eGFR) will no [...] affect anyone group of individuals.Performed By: #### [id number] #### [facility] ([facility]) [address] [place], [place] [address]Iyuzble [Mass/Vol]162 mg/yCCykn86-933WtcsvusjwpMount St. Mary HospitalComment on above:Performed By: #### [id number] #### [facility] ([facility]) [address] [place], [place] [address]Hgqasrfug [Moles/Vol]4.1 mmol/LNormal3.5-5.1UnMount St. Mary HospitalComment on above:Performed By: #### [id number] #### [facility] ([facility]) [address] [place], [place] [address]Hhqopq [Moles/Vol]136 mmol/APfxndm728-316RvhxplyureMount St. Mary HospitalComment on above:Performed By: #### [id number] #### [facility] ([facility]) [address] [place], [place] [address]Xiwi nitrogen [Mass/Vol]45 mg/dLHigh7-25UnMount St. Mary HospitalComment on above:Performed By: #### [id number] #### [facility] ([facility]) [address] [place], [place] [address]ZKFD NITROGEN/CREATININE (MASS RATIO) IN SER/PLAS42.5Normal [facility] Hospital - AkronComment on above:Performed By: #### [id number] #### [facility] ([facility]) [address] [place], [place] [address]IYIWEMKww 35-74-2247FBINJYWXyhkt study ordered for OPNormal [facility] Hospital - AkronCONSULTdischarge planning: to return Home with family Patient [...] at this time - follow up with [facility] on AVSNormalUniversBlanchard Valley Health SystemDocumentationon [id number] DenilsonPancho arringtonjose Car 1955 F Date Provider Department Center 02/22/2025 MARIA VICTORIA MEDINA IMED RX [facility] C Family History Problem Relation Age of Onset Diabetes Mother Cancer Mother Heart disease Father Alcohol abuse Brother Diabetes Brother Family Status - Relation Status Age at Mother Father Brother Reason for Visit and Comments: iMEDS Bedside Medication Delivery and Counseling [Other]NormalUnMount St. Mary HospitalNURSNOTEon 21-69-3927ZNFXYGIOWgxmfqpmp trend reviewed and patient qualifies for 2 liters nocturnal oxygen per nasal cannula per minute d/t CHF. Patient is aware of the benefit and need of oxygen.NormalUnMount St. Mary HospitalPOCT GLUCOSE METER UNSOLICITED RESULTSon 36-20-7688Ccldnvr [Mass/Vol]261 mg/qAWqjg23-619RdrfgwsoiuMount St. Mary HospitalComment on above:Order Comment: Waived Testing in the ED is performed under the ED CLIA certificate #[id number].Result Comment: [email or web address] Performed By: #### [id number] ####[facility] ([facility])[address] [place], [place] [address]Vtvexqq [Mass/Vol]169 mg/hPOqsm53-207QpjfbebzsmMount St. Mary HospitalComment on above:Order Comment: Waived Testing in the ED is performed under the ED CLIA certificate #[id number].Result Comment: [email or web address] Performed By: #### [id number] #### [facility] ([facility]) [address] [place], [place] [address]zd 97-50-754445Esz patient is Moderately Unstable - Medium risk [...] Assess for signs of decreased cardiac outputNoalUniMercy Health Kings Mills Hospital30Daily Case Management Update Multidisciplinary rounds have [...] Question: Reason for PT? Answer: Weakness 02/21/25 0833NormalUniversBlanchard Valley Health System30The patient is Moderately Stable - Low risk [...] functional status, cognitive ability or social support systemNormalUniversBlanchard Valley Health SystemBASIC METABOLIC PANELon 05-82-1942Cvovk gap [Moles/Vol]11 mmol/LNormal7-20UnMount St. Mary HospitalComment on above:Performed By: #### [id number] ####[facility] ([facility])[address] [place], [place] [address]Tmjlqqe [Mass/Vol]9.2 mg/dLNormal 8.6-10.3UnMount St. Mary HospitalComment on above:Performed By: #### [id number] ####[facility] ([facility])[address] [place] [address]Lobojqrg [Moles/Vol]100 mmol/RTpabhu11-639YogqgqysydMount St. Mary HospitalComment on above:Performed By: #### [id number] ####[facility] ([facility])[address] [place] [address]DU8 [Moles/Vol]29 mmol/ZHkcqxv48-06HrwvavnvcgMount St. Mary HospitalComment on above:Performed By: #### [id number] ####[facility] ([facility])[address] [place] [address]Tguyalogmp [Mass/Vol]0.94 mg/dLNormal 0.60-1.20UnMount St. Mary HospitalComment on above:Performed By: #### [id number] ####[facility] ([facility])[address] [place] [address]BXHOVZKFCQ FILTRATION RATE ML/MIN/1.73 SQ M.MYZKBUKLC62.3 mL/min/1.73m*2Normal>60.0 [facility]ty Hospital - AkronComment on above:Result Comment: The [facility]???s estimated glomerular filtration rate (eG FR) will [...] group of individuals. Performed By: #### [id number] ####[facility] ([facility])[address] [place] [address]Isrritz [Mass/Vol]220 mg/uERlpt67-994WoyvcvzfqcMount St. Mary HospitalComment on above:Performed By: #### [id number] ####[facility] ([facility])[address] [place] [address]Olztkdbfw [Moles/Vol]4.0 mmol/LNormal 3.5-5.1UnMount St. Mary HospitalComment on above:Performed By: #### [id number] ####[facility] [place], [place] [address]Qywvcr [Moles/Vol]136 mmol/YUvjfgx860-052UxvufidaorMount St. Mary HospitalComment on above:Performed By: #### [id number] ####[facility] ([facility])[address] [place], [place] [address]Jztx nitrogen [Mass/Vol]42 mg/dLHigh7-25UnMount St. Mary HospitalComment on above:Performed By: #### [id number] ####[facility] ([facility])[address] [place], [place] [address]BGRU NITROGEN/CREATININE (MASS RATIO) IN SER/PLAS44.7NormalUniversBlanchard Valley Health SystemComment on above: Performed By: #### [id number] ####[facility] ([facility])[address] [place], [place] [address]NFIzf 54-29-0705Kgshhcyzxyh distribution width (RBC) [Ratio]15.3 %High 11.5-15.0UnMount St. Mary HospitalComment on above:Performed By: #### [id number] ####[facility] ([facility])[address] [place] [address] ERYTHROCYTE MEAN CORPUSCULAR HEMOGLOBIN CONCENTRATION (G/DL) BY MHTSXXBWF90.5 g/dLLow32.0-35.0UnMount St. Mary HospitalComment on above:Performed By: #### [id number] ####[facility] ([facility])[address] [place] [address] Hematocrit (Bld) [Volume fraction]34.1 %Low36.0-45.0UnMount St. Mary HospitalComment on above:Performed By: #### [id number] ####[facility] ([facility] [place], [place] [address]Dydzivllak (Bld) [Mass/Vol]10.4 g/dL Low12.0-15.0UnMount St. Mary HospitalComment on above:Performed By: #### [id number] ####[facility] ([facility])[address] [place] [address]ORW (RBC) [Entitic mass]27.3 kaMmevwi99.0-33.0UnMount St. Mary Hospital Comment on above:Performed By: #### [id number] ####[facility] ([facility])[address] [place] [address]GMA (RBC) [Entitic vol]89.5 oZOqpigq46.0-98.0 [facility] Hospital - AkronComment on above:Performed By: #### [id number] ####[facility] ([facility])[address] [place] [address]YYCGCXYNO (10*3/UL) IN BLOOD AUTOMATED SPGUK768 10*3/lPEootjr506-537NjnelslgfiMount St. Mary HospitalComment on above:Performed By: #### [id number] ####[facility] ([facility])[address] [place] [address]KKX (Bld) [#/Vol]3.81 10*6/uLNormal 3.80-5.00UnMount St. Mary HospitalComment on above:Performed By: #### [id number] ####[facility] ([facility])[address] [place] [address]MBE (Bld) [#/Vol]9.57 10*3/uLNormal4.00-10.60UnMount St. Mary HospitalComment on above:Performed By: #### [id number] ####[facility] ([facility])[address] [place] [address]HTNJ GLUCOSE METER UNSOLICITED RESULTSon 23-82-6628Jignikt [Mass/Vol]302 mg/zSDuze07-759GehoaqejmmMount St. Mary HospitalComment on above:Order Comment: Waived Testing in the ED is performed under the ED CLIA certificate #[id number].Result Comment: yxqklbf16Ckuhrdroo By: #### [id number] #### [facility] ([facility]) [address] [place] [address]Yuajdyk [Mass/Vol]246 mg/fPTgsx11-929UtlflfloyyMount St. Mary HospitalComment on above:Order Comment: Waived Testing in the ED is performed under the ED CLIA certificate #[id number].Result Comment: mlangle2 Performed By: #### [id number] #### [facility] ([facility]) [address] [place] [address]Fwkgmrk [Mass/Vol]283 mg/iGHeus41-765TrwvyixxmgSelect Medical Specialty Hospital - AkronComment on above:Order Comment: Waived Testing in the ED is performed under the ED CLIA certificate #[id number].Result Comment: mlangle2 Performed By: #### [id number] #### [facility] ([facility]) [address] [place], [place] [address]Infwgsq [Mass/Vol]160 mg/tVDjub45-214GhjpypmoeeSelect Medical Specialty Hospital - AkronComment on above:Order Comment: Waived Testing in the ED is performed under the ED CLIA certificate #[id number].Result Comment: uawwehx21 Performed By: #### [id number] #### [facility] ([facility]) [address] [place] [address]as 42-40-088936Umv patient is Moderately Stable - Low risk [...] and maintained or improved Outcome: ProgressingNormalUniversity of [facility]30The patient is Moderately Stable - Low [...] output Monitor cardiac rate and rhythmNormalUniversity of Methodist Southlake HospitalAPTTon 68-83-8567CXFFVDNPS PARTIAL THROMBOPLASTIN TIME IN PPP BY COAGULATION ASSAY36.0 GrpfgjuNnkq34.0-35.0UnMount St. Mary HospitalComment on above:Order Comment: Waived Testing in the ED is performed under the ED CLIA certificate #[id number].Result Comment: Clinical significance of the APTT is questionable in the presence of heparin.Performed By: #### [id number] #### [facility] ([facility]) [address] [place], [place] [address]QOLHOE BLOOD X 1, STOOLon 31-20-9541WOIYJGBAAZ GASTROINTESTINAL PRESENCE IN STOOLNegativeNormalNegative, None DetectedUnMount St. Mary HospitalComment on above:Performed By: #### [id number] #### [facility] ([facility]) [address] [place], [place] [address]UHBX GLUCOSE METER UNSOLICITED RESULTSon 68-00-2945Iyrbisi [Mass/Vol]247 mg/bYBvbf04-544YvqoxwavzoMount St. Mary HospitalComment on above:Order Comment: Waived Testing in the ED is performed under the ED CLIA certificate #[id number].Result Comment: xcuvrli3Kvsazerot By: #### [id number] #### [facility] ([facility]) [address] [place], [place] [address]Vcgzexl [Mass/Vol]189 mg/rQWcwh57-435AwsmlkjubwMount St. Mary HospitalComment on above:Order Comment: Waived Testing in the ED is performed under the ED CLIA certificate #[id number].Result Comment: jcantre2 Performed By: #### [id number] #### [facility] ([facility]) [address] [place], [place] [address]Cykwtmc [Mass/Vol]186 mg/nPSebf51-397VuuqpwzsqoMount St. Mary HospitalComment on above:Order Comment: Waived Testing in the ED is performed under the ED CLIA certificate #[id number].Result Comment: shodges4 Performed By: #### [id number] ####[facility] ([facility])[address] [place] [address]Bqdsnsj [Mass/Vol]173 mg/qYKxxn42-689GjgdqchwioMount St. Mary HospitalComment on above:Order Comment: Waived Testing in the ED is performed under the ED CLIA certificate #[id number].Result Comment: shodges4 Performed By: #### [id number] ####[facility] ([facility])[address] [place] [address] 42-04-773953Jgk patient is Moderately Stable - Low risk [...] facility with appropriate resources Outcome: ProgressingNormalUniversity of [facility] 02-19-2025 ACTIVATED PARTIAL THROMBOPLASTIN TIME IN PPP BY COAGULATION ASSAY37.5 Seconds High25.0-35.0UnMount St. Mary HospitalComment on above:Order Comment: Waived Testing in the ED is performed under the ED CLIA certificate #[id number]. Result Comment: Clinical significance of the APTT is questionable in the presence of heparin.Performed By: #### [id number] #### [facility] ([facility]) [address] [place] [address]OCIXU METABOLIC PANELon 57-82-3650Rdhcr gap [Moles/Vol]9 mmol/L Normal7-20UnMount St. Mary HospitalComment on above:Performed By: #### [id number] ####[facility] ([facility])[address] [place], [place] [address]Qdyfojo [Mass/Vol]8.3 mg/dLLow8.6-10.3UnMount St. Mary HospitalComment on above:Performed By: #### [id number] ####[facility] ([facility])[address] [place] [address]Heiqmtnp [Moles/Vol]106 mmol/MYmuyil06-353IanlsmcqixMount St. Mary HospitalComment on above:Performed By: #### [id number] ####[facility] ([facility])[address] [place] [address]TP4 [Moles/Vol]25 mmol/LNormal 21-31UnMount St. Mary HospitalComment on above:Performed By: #### [id number] ####[facility] ([facility])[address] [place] [address]Pzpbaszfpl [Mass/Vol]1.13 mg/dLNormal0.60-1.20UnMount St. Mary HospitalComment on above:Performed By: #### [id number] ####[facility] ([facility])[address] [place] [address]HBZYPCOAXU FILTRATION RATE ML/MIN/1.73 SQ M.NGHKVNEIO35.3 mL/min/1.73m*2Low>60.0UnMount St. Mary HospitalComment on above:Result Comment: The [facility]???s estimated glomerular filtration rate (eGFR) will no [...] anyone group of individuals.Performed By: #### [id number] ####[facility] ([facility])[address] [place] [address]Rhzjpgb [Mass/Vol]227 mg/wFHubp67-536EzzuloobbkMount St. Mary HospitalComment on above:Performed By: #### [id number] ####[facility] ([facility])[address] [place] [address]Oigrpuiqi [Moles/Vol]4.4 mmol/L Normal3.5-5.1UnMount St. Mary HospitalComment on above:Performed By: #### [id number] ####[facility] ([facility])[address] [place] [address] Sodium [Moles/Vol]136 mmol/FBxqwcc920-354PezvbyblrrMount St. Mary Hospital Comment on above:Performed By: #### [id number] ####[facility] ([facility])[address] [place] [address]Gcpy nitrogen [Mass/Vol]39 mg/dLHigh7-25UnMount St. Mary HospitalComment on above:Performed By: #### [id number] ####[facility] ([facility])[address] [place] [address]IOPX NITROGEN/CREATININE (MASS RATIO) IN SER/PLAS34.5NormalUniversBlanchard Valley Health SystemComment on above:Performed By: #### [id number] ####[facility] ([facility])[address] [place] [address]BFZuk 30-61-7482Wihgfcailhw distribution width (RBC) [Ratio] 16.0 %High11.5-15.0UnMount St. Mary HospitalComment on above:Performed By: #### [id number] ####[facility] ([facility])[address] [place] [address]QNOPLNKLIDS MEAN CORPUSCULAR HEMOGLOBIN CONCENTRATION (G/DL) BY AUTOMATED 30.8 g/dLLow32.0-35.0UnMount St. Mary HospitalComment on above: Performed By: #### [id number] ####[facility] ([facility])[address] [place] [address]Dvatgjpgjo (Bld) [Volume fraction]33.4 %Low36.0-45.0 [facility] AkronComment on above:Performed By: #### [id number] ####[facility] [place] [address]Mbefpysrvy (Bld) [Mass/Vol]10.3 g/dLLow12.0-15.0UnMount St. Mary HospitalComment on above:Performed By: #### [id number] ####[facility] ([facility])[address] [place] [address]YJO (RBC) [Entitic mass]28.3 voKwfwzq94.0-33.0UnMount St. Mary HospitalComment on above:Performed By: #### [id number] ####[facility] ([facility])[address] [place] [address]RAR (RBC) [Entitic vol] 91.8 kZTojnqt66.0-98.0UnMount St. Mary HospitalComment on above: Performed By: #### [id number] ####[facility] ([facility])[address] [place] [address]VGLIWLFKX (10*3/UL) IN BLOOD AUTOMATED [id number] 10*3/uLNormal 150-400UnMount St. Mary HospitalComment on above:Performed By: #### [id number] ####[facility] ([facility])[address] [place] [address]NYM (Bld) [#/Vol]3.64 10*6/uLLow3.80-5.00UnMount St. Mary HospitalComment on above:Performed By: #### [id number] ####[facility] ([facility])[address] [place] [address]FBH (Bld) [#/Vol]10.27 10*3/uLNormal4.00-10.60UnMount St. Mary HospitalComment on above:Performed By: #### [id number] ####[facility] ([facility])[address] [place] [address]DMTKMOMXRRda 02-19-2025 Hemoglobin (Bld) [Mass/Vol]10.5 g/dLLow12.0-15.0UnMount St. Mary HospitalComment on above:Performed By: #### [id number] ####[facility] ([facility])[address] [place] [address]MUUJ GLUCOSE METER UNSOLICITED RESULTS on 43-31-7813Rhdlwzm [Mass/Vol]280 mg/zPNaax67-758UlnzniifjqSelect Medical Specialty Hospital - AkronComment on above:Order Comment: Waived Testing in the ED is performed under the ED CLIA certificate #[id number].Result Comment: [id number] By: #### [id number] ####[facility] ([facility])[address] [place] [address] Glucose [Mass/Vol]261 mg/vAXsvc37-109LqiqeqszbiSelect Medical Specialty Hospital - AkronComment on above:Order Comment: Waived Testing in the ED is performed under the ED CLIA certificate #[id number].Result Comment: [id number] By: #### [id number] #### [facility] ([facility]) [address] [place], [place] [address]Dbwmnpc [Mass/Vol]241 mg/jUVwpx15-643JmhrrltqqpSelect Medical Specialty Hospital - AkronComment on above:Order Comment: Waived Testing in the ED is performed under the ED CLIA certificate #[id number].Result Comment: [email or web address] Performed By: #### [id number] ####[facility] ([facility])[address] [place], [place] [address]Gmvpekd [Mass/Vol]246 mg/yBXofq62-522BkvapmhgdrSelect Medical Specialty Hospital - AkronComment on above:Order Comment: Waived Testing in the ED is performed under the ED CLIA certificate #[id number].Result Comment: [email or web address] Performed By: #### [id number] #### [facility] ([facility] [address] [place], [place] [address]tz [id number] patient is Moderately Stable - Low risk [...] and behaviors that affect risk of falls [place] fall precautions as indicated by assessment Educate [...] are exacerbated and prevent overall improvement and dischargeNormalUniversBlanchard Valley Health System30The patient is Moderately Stable - Low risk of patient condition declining or worsening The patient's goals for the shift include Comfort/Rest The clinical goals for the shift include Stable vital signsNormalUniversJoint Township District Memorial Hospital 44-43-0289FQRFZUYDZ PARTIAL THROMBOPLASTIN TIME IN PPP BY COAGULATION ASSAY57.3 LmlvdloBqjy36.0-35.0UnMount St. Mary HospitalComment on above:Order Comment: Check aPTT every 6 hours while on heparin infusion, or per protocol.Result Comment: Clinical significance of the APTT is questionable in the presence of heparin.Performed By: #### [id number] #### [facility] ([facility]) [address] [place], [place] [address]LHSNSJGMX PARTIAL THROMBOPLASTIN TIME IN PPP BY COAGULATION ASSAY34.4 QvlpdkrJleziz87.0-35.0UnMount St. Mary HospitalComment on above:Order Comment: Waived Testing in the ED is performed under the ED CLIA certificate #[id number].Result Comment: Clinical significance of the APTT is questionable in the presence of heparin.Performed By: #### [id number] #### [facility] ([facility]) [address] [place] [address]Q-VWNB NATRIURETIC PEPTIDEon 68-73-6062Iwmrkfhthck peptide B (Bld) [Mass/Vol]336 pg/mLHigh0-100UnMount St. Mary HospitalComment on above:Performed By: #### [id number] ####[facility] ([facility])[address] [place] [address]ZIFCL METABOLIC PANELon 51-76-0737Vkmed gap [Moles/Vol]13 mmol/LNormal7-20UnMount St. Mary HospitalComment on above:Performed By: #### [id number] #### [facility] ([facility]) [address] [place] [address]Cwqkxtw [Mass/Vol]8.2 mg/dLLow8.6-10.3UnMount St. Mary HospitalComment on above:Performed By: #### [id number] #### [facility] ([facility]) [address] [place] [address]Zdpbovtj [Moles/Vol]107 mmol/XUtgqiy38-164CxdclrneebMount St. Mary HospitalComment on above:Performed By: #### [id number] #### [facility] ([facility]) [address] [place] [address]JG4 [Moles/Vol]22 mmol/EVukofe49-66VhbekrxcroMount St. Mary HospitalComment on above:Performed By: #### [id number] #### [facility] ([facility]) [address] [place], [place] [address]Fwdkswckmw [Mass/Vol]1.17 mg/dLNormal0.60-1.20UnMount St. Mary HospitalComment on above:Performed By: #### [id number] #### [facility] ([facility]) [address] [place], [place] [address]MFCPPUZCAS FILTRATION RATE ML/MIN/1.73 SQ M.HLKYNSYZS46.2 mL/min/1.73m*2Low>60.0UnMount St. Mary HospitalComment on above:Result Comment: The [facility]???s estimated glomerular filtration rate (eGFR) will no [...] affect anyone group of individuals.Performed By: #### [id number] #### [facility] ([facility]) [address] [place], [place] [address]Rybyxhw [Mass/Vol]182 mg/gQFwec05-367WquzpghaopMount St. Mary HospitalComment on above:Performed By: #### [id number] #### [facility] ([facility]) [address] [place], [place] [address]Ansahiepm [Moles/Vol]4.5 mmol/LNormal3.5-5.1UnMount St. Mary HospitalComment on above:Performed By: #### [id number] #### [facility] ([facility]) [address] [place], [place] [address]Kdzzjk [Moles/Vol]137 mmol/IUxcgql774-012HrlbqfzikhMount St. Mary HospitalComment on above:Performed By: #### [id number] #### [facility] ([facility]) [address] [place], [place] [address]Sujs nitrogen [Mass/Vol]40 mg/dLHigh7-25UnMount St. Mary HospitalComment on above:Performed By: #### [id number] #### [facility] ([facility]) [address] [place] [address]DTSZ NITROGEN/CREATININE (MASS RATIO) IN SER/PLAS34.2Normal [facility] - AkronComment on above:Performed By: #### [id number] #### [facility] ([facility]) [address] [place] [address]OTSos 52-75-4323Xbdkhrlkxmp distribution width (RBC) [Ratio]16.1 %High11.5-15.0UnMount St. Mary HospitalComment on above:Performed By: #### [id number] ####[facility] ([facility])[address] [place] [address] ERYTHROCYTE MEAN CORPUSCULAR HEMOGLOBIN CONCENTRATION (G/DL) BY VGFAYNGGM70.5 g/dLLow32.0-35.0UnMount St[address] Mary HospitalComment on above:Performed By: #### [id number] ####[facility] ([facility])[address] [place] [address] Hematocrit (Bld) [Volume fraction]23.9 %Low36.0-45.0UnMount St. Mary HospitalComment on above:Performed By: #### [id number] ####[facility] ([facility])[address] [place] [address]Sfqvkdhaxk (Bld) [Mass/Vol]7.3 g/dLLow 12.0-15.0UnMount St[address] Mary HospitalComment on above:Performed By: #### [id number] ####[facility] ([facility])[address] [place] [address]KCT (RBC) [Entitic mass]27.4 ffMleadu90.0-33.0UnMount St[address] Mary HospitalComment on above:Performed By: #### [id number] ####[facility] ([facility])[address] [place] [address]LFR (RBC) [Entitic vol]89.8 yUXrdqdp47.0-98.0UnMount [address] Mary HospitalComment on above:Performed By: #### [id number] ####[facility] ([facility] [place] [address]SCLEVPKOM (10*3/UL) IN BLOOD AUTOMATED OMJMP701 10*3/fVVwcslf260-052HfpohojtqdMount St. Mary Hospital Comment on above:Performed By: #### [id number] ####[facility] ([facility])[address] [place] [address]UYX (Bld) [#/Vol]2.66 10*6/uLLow3.80-5.00UnMount St. Mary HospitalComment on above:Performed By: #### [id number] ####[facility] ([facility])[address] [place] [address]KZT (Bld) [#/Vol]9.77 10*3/uLNormal4.00-10.60UnMount St. Mary HospitalComment on above: Performed By: #### [id number] ####[facility] ([facility])[address] [place] [address]AHGZNXAix 73-55-0415NWXSFLS Attestation signed by Doyle Betts MD at [...] the elevated troponin is a Type II SD secondary to anemia Plan: Please transfuse 2 [...] chest pain. She was transferred here from [place] for NSTEMI and new onset HFrEF. Vitals remarkable for BP 140/54, HR 73, on 6L oxygen. Labs notable for peak troponin 929. EKG showed NSR with non-specific ST changes. Echo on 08/18/2023 shows EF 55 to 60%, mild TR, mild mitral stenosis, mild MR, normal bioprosthetic aortic valve with no significant valvular or paravalvular regurgitation, mild IN. Cardiology was consulted for management of NSTEMI. Cardiology ROS: Negative except as mentioned. Past Medical History She has a past medical history of A-fib ([facility]), Abnormal ECG, Aortic valve stenosis, Arrhythmia, Coronary [...] one tablet twice daily. (more content not included)...NormalUnMount St. Mary HospitalFERRITINon 02-18-2025 FERRITIN (NG/ML) IN SER/PLAS18.0 ng/gFGvrlwo00.0-307.0UnMount St[address] Mary HospitalComment on above:Performed By: #### [id number] #### [facility] ([facility]) [address] [place] [address]ZIQBSEkx 34-15-8586LSYAUB (NG/ML) IN SER/PLAS35.0 ng/mLNormal 6.6-1000UnMount St. Mary HospitalComment on above:Performed By: #### [id number] ####[facility] ([facility])[address] [place] [address]JEWGKUW FUNCTION PANELon 05-83-9749Zkuihtx [Mass/Vol]3.7 g/dLNormal3.5-5.7UnMount St. Mary HospitalComment on above:Performed By: #### [id number] #### [facility] ([facility]) [address] [place], [place] [address]FWM [Catalytic activity/Vol]66 U/RVyumrw02-398JcmqmyxhiuMount St. Mary HospitalComment on above:Performed By: #### [id number] #### [facility] ([facility]) [address] [place], [place] [address]FMR [Catalytic activity/Vol]12 U/LNormal7-52UnMount St. Mary HospitalComment on above:Performed By: #### [id number] #### [facility] ([facility]) [address] [place], [place] [address]TEE [Catalytic activity/Vol]21 U/PRyocfj17-32SoomuuloziMount St. Mary HospitalComment on above:Performed By: #### [id number] #### [facility] ([facility]) [address] [place], [place] [address]Whaciocbo [Mass/Vol]0.4 mg/dLNormal0.3-1.0UnMount St. Mary HospitalComment on above:Performed By: #### [id number] #### [facility] ([facility]) [address], [place] [address]Qdtoukovw [Mass/Vol]0.1 mg/dLNormal0-0.2UnMount St[address] Mary HospitalComment on above:Performed By: #### [id number] #### [facility] ([facility]) [address] [facility] [place], [place] [address]Aajxiom [Mass/Vol]6.4 g/dLNormal6.0-8.3UnMount St. Mary HospitalComment on above:Performed By: #### [id number] #### [facility] ([facility]) [address] [place], [place] [address]DMOW SENSITIVITY TROPONIN Ion 93-26-0082RR TROPONIN I (NG/L)929 ng/LCritically high<15UnMount St. Mary HospitalComment on above: Performed By: #### [id number] ####[facility] ([facility])[address] [place], [place] [address]BDvl 75-52-9875EYW&P reviewed. The patient was examined and there [...] benefits of the procedure including risk of SD, stroke and . She understands and agrees to proceed.NormalUnMount St. Mary HospitalIRON AND TIBCon 26-09-1425VATR (UG/DL) IN SER/PLAS31 ug/aBRgo92-410MbhaawmsekMount St. Mary HospitalComment on above:Performed By: #### [id number] ####[facility] ([facility])[address] [place] [address]UMTJ BINDING CAPACITY (UG/DL) IN SER/RGTA936 ug/wQGwbdza830-843BnjwlshemyMount St. Mary Hospital Comment on above:Performed By: #### [id number] ####[facility] ([facility])[address] [place] [address]TEKZ BINDING CAPACITY.UNSATURATED (UG/DL) IN SER/AIDI972.0 ug/tOJmqdlh904.0-355.0UnMount St[address] Mary HospitalComment on above:Performed By: #### [id number] ####[facility] ([facility])[address] [place] [address]DPVN SATURATION (%) IN SER/PLAS8 %Gba23-59RbhlamuotyMount St. Mary HospitalComment on above:Performed By: #### [id number] ####[facility] ([facility])[address] [place] [address]UVATRJESOpq 02-18-2025 Magnesium [Mass/Vol]2.7 mg/dLNormal1.9-2.7UnMount St. Mary Hospital Comment on above:Performed By: #### [id number] ####[facility] ([facility])[address] [place], [place] [address]KAGM GLUCOSE METER UNSOLICITED RESULTSon 02-18-2025 Glucose [Mass/Vol]172 mg/oINdss71-189UlybmktytaMount St. Mary HospitalComment on above:Order Comment: Waived Testing in the ED is performed under the ED CLIA certificate #[id number].Result Comment: [id number] By: #### [id number] ####[facility] ([facility])[address] [place], [place] [address]Zibfadb [Mass/Vol]210 mg/uMLqgh48-438CdxemyibkjMount St. Mary HospitalComment on above:Order Comment: Waived Testing in the ED is performed under the ED CLIA certificate #[id number].Result Comment: mlfhxsp7Qzhndiafy By: #### [id number] #### [facility] ([facility]) [address] [place], [place] [address]NXSR AND SCREENon 61-44-7967UW SCREENNegativeNormalUniversity The University of Toledo Medical CenterComment on above:Performed By: #### [id number] ####[facility],ABO group Nom (Bld)ONormalUnMount St. Mary HospitalComment on above:Performed By: #### [id number] ####[facility],RH TYPE IN BLOODPositive NormalUnMount St. Mary HospitalComment on above:Performed By: #### [id number] ####[facility],VITAMIN B12on 49-59-2105Hyavifgoo (Vitamin B12) [Mass/Vol]553 pg/cMSsfwgc347-503XawktqkgsiMount St. Mary HospitalComment on above:Result Comment: REFERENCE RANGES: 180-914 pg/mL Normal 145-179 pg/mL Indeterminate <145 pg/mL DeficientPerformed By: #### [id number] ####[facility] ([facility])[address] [place], [place] [address]O5F with Estimated Average Gluon 98-96-5178Pslujsw [Mass/Vol]194 mg/dLNormalThe [facility] Physician GroupComment on above:Order Comment: pt is getting an ultrasoundResult Comment: PERFORMED BY: [facility] [address] [place] [address] PATHOLOGIST COMMISSION CLERK SANKET KIRKPATRICK M.D.Performed By: #### BMP, CBC #### [facility] [address] [place] [address] CDFImK9g (Bld) [Mass fraction]8.4 %High4.3-5.6The [facility] Physician [facility] HospitalComment on above:Order Comment: pt is getting an ultrasoundResult Comment: Increased risk for diabetes: 5.7 - 6.4 diabetes: >6.4 glycemic control for adults with diabetes: <7.0Performed By: #### BMP, CBC #### [facility] [address] [place] [address] USAAlanine aminotransferase [Enzymatic activity/volume] in Serum or PlasmaOrdered By: Edvin Casper on 32-14-7165SWG [Catalytic activity/Vol]Alanine aminotransferase [Enzymatic activity/volume] in Serum or Plasma7-[address] [place], [place] [address]Albumin [Mass/volume] in Serum or Plasma by Bromocresol green (BCG) dye binding methoOrdered By: Edvin Casper on 38-11-2276Wxtwngu BCG dye [Mass/Vol]Albumin [Mass/volume] in Serum or Plasma by Bromocresol green (BCG) dye binding metho3.5-5.7FProMedica Defiance Regional HospitalAlkaline phosphatase [Enzymatic activity/volume] in Serum or PlasmaOrdered By: Edvin Casper on 15-25-4326NRV [Catalytic activity/Vol] Alkaline phosphatase [Enzymatic activity/volume] in Serum or Bxlcsj19-269 [facility] Medical CenterAspartate aminotransferase [Enzymatic activity/volume] in Serum or PlasmaOrdered By: Edvin Casper on 02-16-2025 AST [Catalytic activity/Vol]Aspartate aminotransferase [Enzymatic activity/volume] in Serum or Vijxcw26-49SiqnyqporAshtabula County Medical Center Basophils Auto (Bld) [#/Vol]Ordered By: Edvin Casper on 02-16-2025 Basophils (Bld) [#/Vol]Automated basophil count0.0-0.2FProMedica Defiance Regional HospitalBasophils/100 WBC Auto (Bld)Ordered By: Edvin Casper on 02-16-2025 Basophils/100 WBC (Bld)Automated basophil %.[facility] Bilirubin.total [Mass/volume] in Serum or PlasmaOrdered By: Edvin Casper 86-82-8722Uxvmsievh [Mass/Vol]Bilirubin.total [Mass/volume] in Serum or Plasma0.3-1.0[facility] Medical CenterBlood estimated average glucose determination by estimation from glycated hemoglobinOrdered By: Edvin Casper on 15-85-6738Vgwkskm glucose Estimated from glycated hemoglobin (Bld) [Mass/Vol]Glucose mean value [Mass/volume] in Blood Estimated from glycated hemoglobinAshtabula County Medical CenterCalcium [Mass/volume] in Serum or PlasmaOrdered By: Edvin Casper 28-63-1079Cnxajsq [Mass/Vol]Calcium [Mass/volume] in Serum or PlasmaLow8.6-10.3FProMedica Defiance Regional Hospital Carbon dioxide, total [Moles/volume] in Serum or PlasmaOrdered By: Edvin Casper 94-11-3810PY2 [Moles/Vol]Carbon dioxide, total [Moles/volume] in Serum or Tdzgog64.0-31.0[facility] Medical CenterChloride [Moles/volume] in Serum or PlasmaOrdered By: Edvin Casper on 75-13-7690Msewpfys [Moles/Vol]Chloride [Moles/volume] in Serum or Qzquft67-043IktkhzfleAshtabula County Medical CenterCholesterol [Mass/volume] in Serum or PlasmaOrdered By: Edvin Casper on 19-63-3977Anfznuwvhwx [Mass/Vol]Cholesterol [Mass/volume] in Serum or CvcynvPcl217-091JqvfotirhAshtabula County Medical CenterComment on above:Chol less than 200 mg/dl low riskChol 201-239 mg/dl borderline riskChol 240 mg/dl and greater high riskCholesterol in HDL [Mass/volume] in Serum or PlasmaOrdered By: Edvin Casper on 77-13-3189Pimuqkstfbj in HDL [Mass/Vol]Serum or plasma high density lipoprotein (HDL) cholesterol cyttmcxnpmn72-22WbkcestuvAshtabula County Medical CenterComment on above:HDL CHOL ATP-III CLASSIFICATION Cardiovascular RiskHDL > or equal to 60 mg/dL LOWHDL < 40 mg/dL HIGHCholesterol in LDL Calc [Mass/Vol]Ordered By: Edvin Casper on 74-66-7731Opntfoflfmt in LDL [Mass/Vol]Cholesterol in LDL [Mass/volume] in Serum or Plasma by calculation 0-100As[facility] County Medical CenterComment on above:LDL ATP III CLASSIFICATIONLDL less than 100 mg/dL OptimalLDL 100-129 mg/dL Near or above rsgelquEOW004-819 mg/dL Borderline highLDL 160-189 mg/dL HighLDL greater than 189 mg/dL Very highCholesterol in VLDL Calc [Mass/Vol]Ordered By: Edvin Casper on 42-43-2109Oglpaglogfy in VLDL [Mass/Vol]Cholesterol in VLDL [Mass/volume] in Serum or Plasma by calculationAshtabula County Medical Center Complete Blood Count Auto Diffon 10-84-7807Cfnidpkny (Bld) [#/Vol]0.1 10*3/uL Normal0.0-0.2[facility] Physician GroupComment on above:Order Comment: pt is getting an ultrasoundResult Comment: PERFORMED BY: [place] [address] PATHOLOGIST COMMISSION CLERK SANKET KIRKPATRICK M.D.Performed By: #### BMP, CBC #### [place] [address] USABasophils/100 WBC (Bld)1.3 %Normal.The [facility] Physician GroupComment on above:Order Comment: pt is getting an ultrasoundPerformed By: #### BMP, CBC #### [place] [address] USAEosinophils (Bld) [#/Vol]0.3 10*3/uLNormal0.0-0.45[facility] Physician GroupComment on above:Order Comment: pt is getting an ultrasoundPerformed By: #### BMP, CBC #### [place] [address] USAEosinophils/100 WBC (Bld)3.3 %Normal.[facility] Physician GroupComment on above:Order Comment: pt is getting an ultrasound Performed By: #### BMP, CBC #### [place] [address] USAErythrocyte distribution width (RBC) [Ratio]16.4 %High 11.9-15.3[facility] Physician GroupComment on above:Order Comment: pt is getting an ultrasoundPerformed By: #### BMP, CBC #### [place] [address] USAHematocrit (Bld) [Volume fraction]24.7 %Low34.0-46.4[facility] Physician GroupComment on above:Order Comment: pt is getting an ultrasoundPerformed By: #### BMP, CBC #### [place] [address] USAHemoglobin (Bld) [Mass/Vol]8.2 g/dLLow11.8-15.4The [facility] Physician GroupComment on above:Order Comment: pt is getting an ultrasoundPerformed By: #### BMP, CBC #### [place] [address] USALymphocytes (Bld) [#/Vol]2.3 10*3/uLNormal1.00-4.8The [facility] Physician GroupComment on above:Order Comment: pt is getting an ultrasoundPerformed By: #### BMP, CBC #### [place] [address] USALymphocytes/100 WBC (Bld)25.6 %Normal.The [facility] Physician GroupComment on above:Order Comment: pt is getting an ultrasound Performed By: #### BMP, CBC #### [address] (RBC) [Entitic mass]28.4 vpDzmkph63.7-34.3The [facility] Physician GroupComment on above:Order Comment: pt is getting an ultrasoundPerformed By: #### BMP, CBC #### [place] [address] USAV (RBC) [Entitic vol]85.9 mOTypyfn80-891Vvu [facility] Physician GroupComment on above:Order Comment: pt is getting an ultrasound Performed By: #### BMP, CBC #### [place] [address] USAMean Corpuscular HGB Conc33.0 g/hQKojzik28.0-35.0The [facility] Physician GroupComment on above:Order Comment: pt is getting an ultrasoundPerformed By: #### BMP, CBC #### [place] [address] USAMonocytes (Bld) [#/Vol]1.1 10*3/uLHigh0.0-0.8The [facility] Physician GroupComment on above:Order Comment: pt is getting an ultrasound Performed By: #### BMP, CBC #### [place] [address] USAMonocytes/100 WBC (Bld)12.6 %Normal.The [facility] Physician GroupComment on above:Order Comment: pt is getting an ultrasound Performed By: #### BMP, CBC #### [facility] [address] [place] [address] USANeutrophils (Bld) [#/Vol]5.0 10*3/uLNormal1.8-7.7The [facility] Physician GroupComment on above:Order Comment: pt is getting an ultrasoundPerformed By: #### BMP, CBC #### [facility] [address] [place] [address] USANeutrophils/100 WBC (Bld)57.2 %Normal.The [facility] Physician GroupComment on above:Order Comment: pt is getting an ultrasound Performed By: #### BMP, CBC #### [facility] [address] [place] [address] USANRBC%0.0 /100{WBC}Normal0-0.5The [facility] Comment on above:Order Comment: pt is getting an ultrasoundPerformed By: #### BMP, CBC #### [facility] [address] [place] [address] USAPlatelet mean volume (Bld) [Entitic vol]8.9 fLNormal 6.3-10.7The [facility] Physician GroupComment on above:Order Comment: pt is getting an ultrasoundPerformed By: #### BMP, CBC #### [facility] [address] [place] [address] USAPlatelets (Bld) [#/Vol]166 10*3/wYFdxutc279-042Udk [facility] Physician GroupComment on above:Order Comment: pt is getting an ultrasoundPerformed By: #### BMP, CBC #### [facility] [address] [place] [address] USARBC (Bld) [#/Vol]2.87 10*6/uLLow3.60-5.00The [facility] Physician GroupComment on above:Order Comment: pt is getting an ultrasound Performed By: #### BMP, CBC #### [facility] [address] [place] [address] USAWBC (Bld) [#/Vol]8.8 10*3/uLNormal3.8-11.6The [facility] Physician GroupComment on above:Order Comment: pt is getting an ultrasound Performed By: #### BMP, CBC #### [facility] [address] [place] [address] USAComprehensive Metabolic Panelon 96-71-7911Nsykpkp [Mass/Vol]3.8 g/dLNormal3.5-5.7The [facility] Physician GroupComment on above: Order Comment: FASTING Y pt is getting an ultrasoundPerformed By: #### BMP, CBC #### [facility] [address] [place] [address] USAAlbumin/Globulin [Mass ratio]1.8 {ratio}NormalThe [facility] Physician GroupComment on above:Order Comment: FASTING Y pt is getting an ultrasoundPerformed By: #### BMP, CBC #### [place] [address] USAALP [Catalytic activity/Vol]64 U/XCyszcb20-820Udz [facility] Physician GroupComment on above:Order Comment: FASTING Y pt is getting an ultrasoundPerformed By: #### BMP, CBC #### [place] [address] USAALT [Catalytic activity/Vol]15 U/LNormal7-52The [facility] Physician GroupComment on above:Order Comment: FASTING Y pt is getting an ultrasoundPerformed By: #### BMP, CBC #### [place] [address] USAAnion gap [Moles/Vol]10.7 mmol/LNormal6.0-15.0The [facility] Physician GroupComment on above:Order Comment: FASTING Y pt is getting an ultrasoundPerformed By: #### BMP, CBC #### [place] [address] USAAST [Catalytic activity/Vol]17 U/PYdxjek43-55Jeo [facility] Physician GroupComment on above:Order Comment: FASTING Y pt is getting an ultrasoundPerformed By: #### BMP, CBC #### [place] [address] USABilirubin [Mass/Vol]0.3 mg/dLNormal0.3-1.0The [facility] Physician GroupComment on above:Order Comment: FASTING Y pt is getting an ultrasoundPerformed By: #### BMP, CBC #### [facility] [address] [place] [address] USACalcium [Mass/Vol]8.3 mg/dLLow8.6-10.3The [facility] Physician GroupComment on above:Order Comment: FASTING Y pt is getting an ultrasoundPerformed By: #### BMP, CBC #### [facility] [address] [place] [address] USAChloride [Moles/Vol]105 mmol/LClhjtb77-239Ooy [facility] Physician GroupComment on above:Order Comment: FASTING Y pt is getting an ultrasoundPerformed By: #### BMP, CBC #### [place] [address] USACO2 [Moles/Vol]26.2 mmol/NZoktot63.0-31.0The [facility] Physician GroupComment on above:Order Comment: FASTING Y pt is getting an ultrasoundPerformed By: #### BMP, CBC #### [facility] [address] [place] [address] USACreatinine [Mass/Vol]1.44 mg/dLHigh0.60-1.20The [facility] Physician GroupComment on above:Order Comment: FASTING Y pt is getting an ultrasoundPerformed By: #### BMP, CBC #### [place] [address] USACreatinine Clr Calc Mxvvwgow48.01NoColumbus Regional Healthcare System Physician GroupComment on above:Order Comment: FASTING Y pt is getting an ultrasoundPerformed By: #### BMP, CBC #### [facility] [address] [place] [address] USAEstimated GFR39.128 mL/MinNoColumbus Regional Healthcare System Physician GroupComment on above:Order Comment: FASTING Y pt is getting an ultrasound Performed By: #### BMP, CBC #### [facility] [address] [place] [address] USAGlobulin (S) [Mass/Vol]2.1 g/dLNoColumbus Regional Healthcare System Physician GroupComment on above:Order Comment: FASTING Y pt is getting an ultrasoundPerformed By: #### BMP, CBC #### [facility] [address] [place] [address] USAGlucose [Mass/Vol]142 mg/dLSignificant change jn75-700Vid [facility] Physician GroupComment on above:Order Comment: FASTING Y pt is getting an ultrasoundResult Comment: Random Glucose Reference Range is dependent on time and content of last meal. Glucose of more than 200 mg/dL in a nonstressed, ambulatory subject supports the diagnosis of Diabetes Mellitus. ADA recommended reference rangePerformed By: #### BMP, CBC #### [facility] [address] [place] [address] USAPotassium [Moles/Vol]4.9 mmol/LNormal3.5-5.1The [facility] Physician GroupComment on above:Order Comment: FASTING Y pt is getting an ultrasoundPerformed By: #### BMP, CBC #### [facility] [address] [place] [address] USAProtein [Mass/Vol]5.9 g/dLLow6.4-8.9The [facility] Physician GroupComment on above:Order Comment: FASTING Y pt is getting an ultrasoundPerformed By: #### BMP, CBC #### [facility] [address] [place] [address] USASodium [Moles/Vol]137 mmol/TTkstnj036-080Yfu [facility] Physician GroupComment on above:Order Comment: FASTING Y pt is getting an ultrasoundPerformed By: #### BMP, CBC #### [facility] [address] [place] [id number] USAUrea nitrogen [Mass/Vol]48 mg/dLHigh7-25The [facility] Physician GroupComment on above:Order Comment: FASTING Y pt is getting an ultrasoundPerformed By: #### BMP, CBC #### [facility] [address] [place] [address] USACreatinine [Mass/volume] in Serum or PlasmaOrdered By: Edvin Casper on 03-16-4591Uwdhbraubi [Mass/Vol]Creatinine [Mass/volume] in Serum or PlasmaHigh0.60-1.20[facility] CenterEosinophils Auto (Bld) [#/Vol]Ordered By: Edvin Casper on 51-68-1145Vyrtjumsoru (Bld) [#/Vol]Automated eosinophil count0.0-0.45[facility] Eosinophils/100 WBC Auto (Bld)Ordered By: Edvintara Casper on 02-16-2025 Eosinophils/100 WBC (Bld)Automated eosinophil %.[facility] Medical CenterErythrocyte distribution width Auto (RBC) [Ratio]Ordered By: Edvin Casper on 67-48-9948Xebxpkonjtg distribution width (RBC) [Ratio]Erythrocyte distribution width [Ratio] by Automated cuybhGrft66.9-15.3FProMedica Defiance Regional HospitalFerritinon 54-62-5850Jajbwacv [Mass/Vol]13.5 ng/mBGzivoh49.0-306.8 The [facility] Physician GroupComment on above:Order Comment: FASTING Y pt is getting an ultrasoundPerformed By: #### BMP, CBC #### [facility] [address] [place] [address] USAFerritin [Mass/volume] in Serum or PlasmaOrdered By: Edvin [facility]apro[facility] on 23-96-5299Zbmrepnn [Mass/Vol]Ferritin [Mass/volume] in Serum or Ogdkrh85.0-306.8[facility] CenterFolate [Mass/volume] in Serum or PlasmaOrdered By: Edvin [facility] on 88-75-4938Vngaty [Mass/Vol] Folate [Mass/volume] in Serum or Plasma>5.9[facility] Comment on above:Folate reference range: >5.9 ng/mlThe WHO technical consultation on folate and vitamin m93aarjyulreevm has determined that folate concentrations lessthan 4 ng/ml are considered deficient.Globulin Calc (S) [Mass/Vol]Ordered By: Edvin Morochoma on 24-78-3745Vagvmcae (S) [Mass/Vol] Serum globulin measurement by calculation (mass/volume)[facility] Medical CenterGlucose Glucometer (BldC) [Mass/Vol]Ordered By: Edvintara Morochoma on 44-01-9025Rfdepse [Mass/Vol]Capillary blood glucose measurement by glucometer (mass/volume)[facility] CenterComment on above:Random Glucose Reference Range is dependent on time and content of last meal. Glucose of more than 200 mg/dL in a nonstressed, ambulatory subject supports the diagnosis of Diabetes Mellitus.Glucose Poct Glucometerson 26-36-1830Pldzgqe [Mass/Vol]254 mg/dLViera Hospital Physician GroupComment on above:Result Comment: Random Glucose Reference Range is dependent on time and content of last meal. Glucose of more than 200 mg/dL in a nonstressed, ambulatory subject supports the diagnosis of Diabetes Mellitus. PERFORMED BY: [address] [place] [address] PATHOLOGIST COMMISSION CLERK SANKET KIRKPATRICK M.D.Performed By: #### GLULS #### Point of Care testing ,Xjkferb8Nms0: Cleaned MeterNoColumbus Regional Healthcare System Physician GroupComment on above: Result Comment: PERFORMED BY: [facility] [address] [facility] [place] [address] PATHOLOGIST COMMISSION CLERK SANKET KIRKPATRICK M.D.Performed By: #### GLULS #### Point of Care testing ,Glucose [Mass/Vol]170 mg/dLViera Hospital Physician GroupComment on above: Result Comment: Random Glucose Reference Range is dependent on time and content of last meal. Glucose of more than 200 mg/dL in a nonstressed, ambulatory subject supports the diagnosis of Diabetes Mellitus.Performed By: #### GLULS #### Point of Care testing ,Glucose [Mass/volume] in Serum or PlasmaOrdered By: Edvin Casper on 03-07-3712Vdhlskh [Mass/Vol]Glucose [Mass/volume] in Serum or PlasmaInvalid Interpretation Kczv51-789WkskrddaiAshtabula County Medical CenterComment on above: Delta: 371 on 02/15/25-1430ADA recommended reference rangeRandom Glucose Reference Range is dependent on time and content of last meal. Glucose of more than 200 mg/dL in a nonstressed, ambulatory subject supports the diagnosis of Diabetes Mellitus.Hematocrit Auto (Bld) [Volume fraction]Ordered By: Edvin Casper on 14-61-4917Hoqejjxxdn (Bld) [Volume fraction]Hematocrit [Volume Fraction] of Blood by Automated lqzxrVgh06.0-46.4FProMedica Defiance Regional HospitalHemoglobin A1c/Hemoglobin.total in BloodOrdered By: Edvin Casper on 85-49-1025IwD1k (Bld) [Mass fraction]Hemoglobin A1c percentageHigh4.3-5.6 [facility] CenterComment on above:Increased risk for diabetes: 5.7 - 6.4diabetes: >6.4glycemic control for adults with diabetes: <7.0 Hemoglobin [Mass/volume] in BloodOrdered By: Edvin Casper on 02-16-2025 Hemoglobin (Bld) [Mass/Vol]Hemoglobin [Mass/volume] in SpuuaFrn11.8-15.4 [facility] CenterIron [Mass/volume] in Serum or PlasmaOrdered By: Edvin Casper on 93-66-5072Gire [Mass/Vol]Iron [Mass/volume] in Serum or FofwosNnc01-779FfjwbjvudAshtabula County Medical CenterIron and TIBC Profileon 02-16-2025% Iron Dgbamtrgvh47.4 %Lmm61-99Wqg [facility] Physician GroupComment on above:Order Comment: FASTING Y pt is getting an ultrasoundPerformed By: #### BMP, CBC #### [facility] [address] [place] [address] USAIron [Mass/Vol]45 ug/xCEes29-338Tbu [facility] Physician GroupComment on above:Order Comment: FASTING Y pt is getting an ultrasound Performed By: #### BMP, CBC #### [facility] [address] [place] [address] USATotal Iron Binding Bcllpwgc876 ug/lSTvjhec776-799Bfv [facility] Physician GroupComment on above:Order Comment: FASTING Y pt is getting an ultrasoundPerformed By: #### BMP, CBC #### [facility] [address] [place] [address] USATransferrin [Mass/Vol]309 mg/uIGsnori896-293Vdh [facility] Physician GroupComment on above:Order Comment: FASTING Y pt is getting an ultrasoundPerformed By: #### BMP, CBC #### [facility] [address] [place] [address] USALeukocytes [#/volume] corrected for nucleated erythrocytes in Blood by Automated counOrdered By: Edvin Casper on 62-46-4240EMM corrected for nucl RBC Auto (Bld) [#/Vol]Leukocytes [#/volume] corrected for nucleated erythrocytes in Blood by Automated coun3.8-11.6FProMedica Defiance Regional HospitalLipid Panelon 66-33-5777Kbuqbtwsuln [Mass/Vol]119 mg/pAFat245-863 The [facility] Physician GroupComment on above:Order Comment: FASTING Y pt is getting an ultrasoundResult Comment: Chol less than 200 mg/dl low risk Chol 201-239 mg/dl borderline risk Chol 240 mg/dl and greater high riskPerformed By: #### BMP, CBC #### [facility] [address] [place] [address] USACholesterol in HDL [Mass/Vol]28 mg/tKLwaghu22-14Mqc [facility] Physician GroupComment on above:Order Comment: FASTING Y pt is getting an ultrasoundResult Comment: HDL CHOL ATP-III CLASSIFICATION Cardiovascular Risk HDL > or equal to 60 mg/dL LOW HDL < 40 mg/dL HIGHPerformed By: #### BMP, CBC #### [facility] [address] [place] [address] USACholesterol.total/Cholesterol in HDL [Mass ratio]4.3 {ratio}Normal<5.0The [facility] Physician GroupComment on above:Order Comment: FASTING Y pt is getting an ultrasoundPerformed By: #### BMP, CBC #### [facility] [address] [place] [address] USALDL Cholesterol,Mquxvpmvhj75 mg/dLNormal0-100The [facility] Physician GroupComment on above:Order Comment: FASTING Y pt is getting an ultrasoundResult Comment: LDL ATP III CLASSIFICATION LDL less than 100 mg/dL Optimal LDL 100-129 mg/dL Near or above optimal LDL 130-159 mg/dL Borderline high LDL 160-189 mg/dL High LDL greater than 189 mg/dL Very highPerformed By: #### BMP, CBC #### [facility] [address] [place] [address] USATriglyceride w/Pseazm300 mg/dLHigh0-149The [facility] Physician GroupComment on above:Order Comment: FASTING Y pt is getting an ultrasoundResult Comment: TRIG ATP III CLASSIFICATION TRIG less than 150 mg/dL Normal TRIG 150-199 mg/dL Borderline high TRIG 200-500 mg/dL High TRIG greater than 500 mg/dL Very high Standard traceable to the Center for Disease Conrtrol and Prevention (CDC) test method.Performed By: #### BMP, CBC #### [facility] [address] [place] [address] USAVLDL IVIIBASNSRU74 mg/dLNormalThBear Lake Memorial Hospital Physician GroupComment on above:Order Comment: FASTING Y pt is getting an ultrasound Performed By: #### BMP, CBC #### [facility] [address] [place] [address] USALymphocytes Auto (Bld) [#/Vol]Ordered By: Edvin Casper on 08-51-6529Xvvbzxuohcw (Bld) [#/Vol]Lymphocytes [#/volume] in Blood by Automated count1.00-4.8[facility] Medical CenterLymphocytes/100 WBC Auto (Bld)Ordered By: Edvin Casper on 09-80-4580Qvavjdopufc/100 WBC (Bld) Lymphocytes/100 leukocytes in Blood by Automated count.[facility] Auto (RBC) [Entitic mass]Ordered By: Edvin Casper on 87-29-3134AJL (RBC) [Entitic mass]MCH [Entitic mass] by Automated count24.7-34.3 [facility] Auto (RBC) [Mass/Vol]Ordered By: Edvin Casper on 65-96-1048NCLN (RBC) [Mass/Vol]MCHC [Mass/volume] by Automated count32.0-35.0[facility] CenterV Auto (RBC) [Entitic vol] Ordered By: Edvin Casper on 77-72-3271FIC (RBC) [Entitic vol]MCV [Entitic volume] by Automated mdpwu19-005LwqmkxwxkAshtabula County Medical CenterMonocytes Auto (Bld) [#/Vol]Ordered By: Edvin Casper on 96-77-2892Guesgcnio (Bld) [#/Vol]Automated blood monocyte countHigh0.0-0.8[facility] CenterMonocytes/100 WBC Auto (Bld)Ordered By: Edvin Casper on 02-16-2025 Monocytes/100 WBC (Bld)Automated monocyte %.[facility] Neutrophils Auto (Bld) [#/Vol]Ordered By: Edvin Casper on 02-16-2025 Neutrophils (Bld) [#/Vol]Neutrophils [#/volume] in Blood by Automated count 1.8-7.7FProMedica Defiance Regional HospitalNeutrophils/100 WBC Auto (Bld)Ordered By: Edvin Casper on 51-40-0462Urxkbfqdsdo/100 WBC (Bld)Automated neutrophil %.[facility] CenterNo Panel InformationOrdered By: Edvin Casper on 61-18-1632Whyjtfs Glucose CommentGlu2: cleaned meter [facility] CenterEstimated GFR (CKD-EPI)39.128 mL/MinAshtabula County Medical CenterPharmacy Creatinine Clearance (Chem36.01[facility] CenterNucleated erythrocytes [Presence] in Blood by Automated countOrdered By: Edvin Casper on 04-78-5489Fdddbvcni RBC Auto Ql (Bld) Nucleated erythrocytes [Presence] in Blood by Automated count0-0.5FProMedica Defiance Regional HospitalPlatelet mean volume Auto (Bld) [Entitic vol]Ordered By: Edvin Casper on 28-98-1401Yjlsmwuw mean volume (Bld) [Entitic vol] Platelet mean volume [Entitic volume] in Blood by Automated count6.3-10.7 [facility] Medical CenterPlatelets Auto (Bld) [#/Vol]Ordered By: Edvin Casper on 75-03-6366Fybmastyv (Bld) [#/Vol]Platelets [#/volume] in Blood by Automated fffol309-103BxdxqypteAshtabula County Medical CenterPotassium [Moles/volume] in Serum or PlasmaOrdered By: Edvin Casper on 02-16-2025 Potassium [Moles/Vol]Potassium [Moles/volume] in Serum or Plasma3.5-5.1FProMedica Defiance Regional HospitalProtein [Mass/volume] in Serum or PlasmaOrdered By: Edvin Casper on 06-86-7092Jzxffzs [Mass/Vol]Protein [Mass/volume] in Serum or PlasmaLow6.4-8.9[facility] Medical CenterRBC Auto (Bld) [#/Vol] Ordered By: Edvin Casper on 08-10-9756IBO (Bld) [#/Vol]Erythrocytes [#/volume] in Blood by Automated countLow3.60-5.00Toledo Hospitalerum or plasma albumin/globulin mass ratioOrdered By: Edvin Casper on 79-19-1299Lidnhay/Globulin [Mass ratio]Serum or plasma albumin/globulin mass ratioToledo Hospitalerum or plasma anion gap determination Ordered By: Edvin Casper on 58-17-8771Msfco gap [Moles/Vol]Serum or plasma anion gap determination6.0-15.0Toledo Hospitalerum or plasma iron binding capacity measurement (mass/volume)Ordered By: Edvin Casper on 37-07-3862Hgei binding capacity [Mass/Vol]Iron binding capacity [Mass/volume] in Serum or Phsokh536-514AmhihrrugToledo Hospitalerum or plasma iron saturation measurement (mass fraction)Ordered By: Edvin Casper on 59-64-6951Kgzi saturation [Mass fraction]Iron saturation [Mass Fraction] in Serum or EqoksiRzv46-59PsdltnljaToledo Hospitalerum or plasma total cholesterol/high density lipoprotein (HDL) cholesterol mass rat Ordered By: Edvin Casper on 51-96-8113Vaeznmovgqs.total/Cholesterol in HDL [Mass ratio]Serum or plasma total cholesterol/high density lipoprotein (HDL) cholesterol mass rat<5.0Toledo Hospitalodium [Moles/volume] in Serum or PlasmaOrdered By: Edvin Casper on 64-37-4540Wgksoc [Moles/Vol]Sodium [Moles/volume] in Serum or Lbhicc137-186UleacnayaAshtabula County Medical CenterThyroid Stim Hormone w/Rflxon 11-99-1866Jbfwjek Stim Hormone w/Rflx1.17 u[iU]/mLNormal0.45-5.33The [facility] Physician GroupComment on above: Order Comment: FASTING Y pt is getting an ultrasoundResult Comment: PERFORMED BY: [place] [address] PATHOLOGIST COMMISSION CLERK SANKET KIRKPATRICK M.D.Performed By: #### BMP, CBC #### [facility] [address] [place] [address] USAThyrotropin [Units/volume] in Serum or PlasmaOrdered By: Edvin Casper on 28-51-9026GNV QnThyrotropin [Units/volume] in Serum or Plasma0.45-5.33[facility] CenterTransferrin [Mass/volume] in Serum or PlasmaOrdered By: Edvin Casper on 73-52-3342Mwsfntfzesp [Mass/Vol]Transferrin [Mass/volume] in Serum or Kucwzv547-923LhxcjtptxAshtabula County Medical CenterTriglyceride [Mass/volume] in Serum or PlasmaOrdered By: Edvin Casper on 25-46-0833Djggccqyjtgk [Mass/Vol]Triglyceride [Mass/volume] in Serum or PlasmaHigh0-149[facility] CenterComment on above:TRIG ATP III CLASSIFICATIONTRIG less than 150 mg/dL NormalTRIG 150-199 mg/dL Borderline highTRIG 200-500 mg/dL High TRIG greater than 500 mg/dL Very highStandard traceable to the Center for Disease Conrtrol and Prevention (CDC) test method.US aorta (aaa) screeningon 23-34-8513VR aorta (aaa) screening [facility] Main Keeling [address] [place], [place] [id number] Ultrasound Report Signed Patient: Diann Patel MR#: [id number] 525 : 1955 Acct:[id number] Age/Sex: 69 / F ADM Date: 02/15/25 Loc: Room: [address] [place] [address] Type: ADM INOo Attending Dr: Edvin Casper [...] Erwin Jr., D.O.02/16/2025 8:26 AM Dictation Location: [place] [address] Tech: Ana Maria Rileyer Transcribed By: JOSUE 02/16/25825 Dictated By: Julio Cesar Erwin Jr, DO 02/16/25824 Signed By: 02/16/25825[facility] Physician GroupUrea nitrogen [Mass/volume] in Serum or PlasmaOrdered By: Edvin Casper on 94-95-2026Qqnv nitrogen [Mass/Vol]Urea nitrogen [Mass/volume] in Serum or PlasmaVibra Hospital Of Western Massachusetts-Ashtabula County Medical CenterVit. B12/Folate Profileon 20-97-8735Qmzjyngio (Vitamin B12) [Mass/Vol]831 pg/uEOvovcv986-265Dbg [facility] Physician GroupComment on above:Order Comment: FASTING Y pt is getting an ultrasoundPerformed By: #### BMP, CBC #### [facility] [address] [place] [id number] EYNCqysav11.0 ng/mLNormal>5.9The [facility] Comment on above:Order Comment: FASTING Y pt is getting an ultrasoundResult Comment: Folate reference range: >5.9 ng/ml The WHO technical consultation on folate and vitamin b12 deficiencies has determined that folate concentrations less than 4 ng/ml are considered deficient.Performed By: #### BMP, CBC #### [facility] [address] [place] [address] USAVitamin B12 ser/plasOrdered By: Edvin Casper on 08-93-1359Ptikwkqxq (Vitamin B12) [Mass/Vol]Vitamin B12 ser/slmm000-353Itzlosczy Regional Medical CenterWBC Auto (Bld) [#/Vol]Ordered By: Edvin Casper on 89-69-3480YZP (Bld) [#/Vol]Leukocytes [#/volume] in Blood by Automated count 3.8-11.6FProMedica Defiance Regional HospitalAlanine aminotransferase [Enzymatic activity/volume] in Serum or PlasmaOrdered By: Ross Martinez on 41-73-4151SPP [Catalytic activity/Vol]Alanine aminotransferase [Enzymatic activity/volume] in Serum or Plasma7-52[facility] CenterAlbumin [Mass/volume] in Serum or Plasma by Bromocresol green (BCG) dye binding methoOrdered By: Ross Martinez on 71-04-7963Lqulfdt BCG dye [Mass/Vol]Albumin [Mass/volume] in Serum or Plasma by Bromocresol green (BCG) dye binding metho3.5-5.7FProMedica Defiance Regional HospitalAlkaline phosphatase [Enzymatic activity/volume] in Serum or PlasmaOrdered By: Ross Martinez on 41-74-0166ZVV [Catalytic activity/Vol] Alkaline phosphatase [Enzymatic activity/volume] in Serum or Xyumlt20-765 [facility] CenterAppearance of UrineOrdered By: Ross Martinez on 44-68-4091Pfdxawphqe (U)Urine appearanceCleOhio State Health SystemAspartate aminotransferase [Enzymatic activity/volume] in Serum or Plasma Ordered By: Ross Martinez on 91-42-9735HWC [Catalytic activity/Vol]Aspartate aminotransferase [Enzymatic activity/volume] in Serum or Plqwpq98-64VzpkwmrzfAshtabula County Medical CenterB-Type Natriuretic Peptideon 67-72-0158Uujxxhokaxo peptide B (Bld) [Mass/Vol]278.0 pg/mLHigh5-100[facility] Comment on above:Result Comment: PERFORMED BY: [place] [address] PATHOLOGIST COMMISSION CLERK SANKET KIRKPATRICK M.D.Performed By: #### BMP, CBC #### [facility] [address] [place] [address] USABasophils Auto (Bld) [#/Vol]Ordered By: Ross Martinez on 81-17-9547Wxkpvxjwo (Bld) [#/Vol]Automated basophil count0.0-0.2FProMedica Defiance Regional HospitalBasophils/100 WBC Auto (Bld)Ordered By: Ross Martinez on 30-67-7042Ohslewjfa/100 WBC (Bld)Automated basophil %.[facility] CenterBilirubin Test strip Ql (U)Ordered By: Ross Martinez on 23-50-1106Jbbzdtuit Ql (U)Bilirubin.total [Presence] in Urine by Test strip NegativeAshtabula County Medical CenterBilirubin.total [Mass/volume] in Serum or PlasmaOrdered By: Ross Martinez on 80-99-8917Xckyowqcy [Mass/Vol] Bilirubin.total [Mass/volume] in Serum or Plasma0.3-1.0[facility] CenterBioFire Not Detectedon 59-01-1029ZlhMnpg Not DetectedNot detected NormalNot DetecteThe [facility] Physician GroupComment on above:Result Comment: This is a duplicate RP2.1 COVID (PCR) result to be used for statistical tracking purpose only. PERFORMED BY: [place] [address] PATHOLOGIST COMMISSION CLERK SANKET KIRKPATRICK M.D.Performed By: #### BMP, CBC #### [place] [address] USACOVID Cepheid NegativeOrdered By: Ross Martinez on 03-54-3455ZFGA-CoV-2 (COVID-19) Ab IA QlCOVID CepheidNegativeAshtabula County Medical CenterComment on above:This is a duplicate Cepheid Xpert Xpress CoV- 2/Flu/RSV Plus RNA by RT-PCR result to be used for statistical tracking purpose only.COVID-19 / Flu A/B / RSV PCRon 23-28-3728WTKY-CoV-2 (COVID-19) RNA KOLE+probe Ql (Unsp spec)COVID-19 Cepheid [...] Disclaimer revoked sooner. PERFORMED BY: [facility] [place] [address] PATHOLOGIST COMMISSION CLERK SANKET KIRKPATRICK M.D.[facility] Physician GroupComment on above: Performed By: #### GLULS #### Point of Care testing ,COVID-19 Detected/Not DetectedOrdered By: Edvin Casper on 02-15-2025 SARS-CoV-2 (COVID-19) RNA KOLE+non-probe Ql (Nph)Not detectedNot [facility] Health CenterComment on above:This is a duplicate RP2.1 COVID (PCR) result to be used for statistical tracking purpose only.CT abdomen pelvis w con on 88-25-5992UQ abdomen pelvis w [facility] [address] [place] [address] [place] [address] Scan Report Signed Patient: Diann Patel MR#: [id number] 525 : 1955 Acct:[id number] Age/Sex: 69 / F ADM Date: 02/15/25 Loc: Room: [address] [place] [address] Type: ADM INOo Attending Dr: Edvin Casper [...] Manjula Flannery M.D.02/15/2025 4:03 PM Dictation Location: [place] [address] Transcribed By: JOSUE 02/15/25 1603 Dictated By: Manjula Flannery MD 02/15/25 1554 Signed By: 02/15/25 1603[facility] Physician GroupCalcium [Mass/volume] in Serum or PlasmaOrdered By: Ross Martinez on 80-82-3452Mvsnnyq [Mass/Vol]Calcium [Mass/volume] in Serum or Plasma8.6-10.3FProMedica Defiance Regional HospitalCarbon dioxide, total [Moles/volume] in Serum or PlasmaOrdered By: Ross Martinez on 58-72-9968SL6 [Moles/Vol]Carbon dioxide, total [Moles/volume] in Serum or Plasma 21.0-31.0[facility] CenterCepheid COVID PCR Negativeon 65-60-0097YCEM-CoV-2 (COVID-19) RNA KOLE+probe Ql (Unsp spec)NegativeNormal NegativeThe [facility] Physician GroupComment on above:Result Comment: This is a duplicate CepGondolaid Xpert Xpress CoV-2/Flu/RSV Plus RNA by RT-PCR result to be used for statistical tracking purpose only. PERFORMED BY: [facility] [address] [place] [address] PATHOLOGIST COMMISSION CLERK SANKET KIRKPATRICK M.D.Performed By: #### GLULS #### Point of Care testing ,Chloride [Moles/volume] in Serum or PlasmaOrdered By: Ross Martinez on 84-12-0741Otzijepm [Moles/Vol]Chloride [Moles/volume] in Serum or Ittivj67-534 [facility] CenterColor Auto (U)Ordered By: Ross Martinez on 59-72-0251Pbukf (U)Color of Urine by AutoYellowAshtabula County Medical Center Complete Blood Count Auto Diffon 29-44-3604Efkwruild (Bld) [#/Vol]0.1 10*3/uL Normal0.0-0.2The [facility] Physician GroupComment on above:Result Comment: PERFORMED BY: [facility] [place] [address] PATHOLOGIST COMMISSION CLERK SANKET KIRKPATRICK M.D.Performed By: #### GLULS #### Point of Care testing ,Basophils/100 WBC (Bld)1.0 %Normal.The [facility] Physician GroupComment on above:Performed By: #### GLULS #### Point of Care testing ,Eosinophils (Bld) [#/Vol]0.4 10*3/uLNormal0.0-0.45[facility] Physician [facility] Comment on above:Performed By: #### GLULS #### Point of Care testing ,Eosinophils/100 WBC (Bld)3.4 %Normal.The [facility] Physician GroupComment on above:Performed By: #### GLULS #### Point of Care testing ,Erythrocyte distribution width (RBC) [Ratio]16.6 %High11.9-15.3The [facility] Physician GroupComment on above:Performed By: #### GLULS #### Point of Care testing ,Hematocrit (Bld) [Volume fraction]26.9 %Low34.0-46.4The [facility] Physician GroupComment on above:Performed By: #### GLULS #### Point of Care testing ,Hemoglobin (Bld) [Mass/Vol]8.8 g/dLLow11.8-15.4[facility] Comment on above:Performed By: #### GLULS #### Point of Care testing ,Lymphocytes (Bld) [#/Vol]2.3 10*3/uLNormal1.00-4.8[facility] Comment on above:Performed By: #### GLULS #### Point of Care testing ,Lymphocytes/100 WBC (Bld)21.3 %Normal.The [facility] Physician GroupComment on above:Performed By: #### GLULS #### Point of Care testing ,MCH (RBC) [Entitic mass]28.4 bxIwgbmg02.7-34.3[facility] Comment on above:Performed By: #### GLULS #### Point of Care testing ,MCV (RBC) [Entitic vol]86.5 jZPcagqo23-327Eoe [facility] Physician GroupComment on above:Performed By: #### GLULS #### Point of Care testing ,Mean Corpuscular HGB Conc32.8 g/eIFkxvsr76.0-35.0[facility] Comment on above:Performed By: #### GLULS #### Point of Care testing ,Monocytes (Bld) [#/Vol]1.0 10*3/uLHigh0.0-0.8[facility] Comment on above:Performed By: #### GLULS #### Point of Care testing ,Monocytes/100 WBC (Bld)18.23 %Normal0.00-20.00[facility] Comment on above:Performed By: #### GLULS #### Point of Care testing ,Monocytes/100 WBC (Bld)9.1 %Normal.The [facility] Physician GroupComment on above:Performed By: #### GLULS #### Point of Care testing ,Neutrophils (Bld) [#/Vol]6.9 10*3/uLNormal1.8-7.7[facility] Comment on above:Performed By: #### GLULS #### Point of Care testing ,Neutrophils/100 WBC (Bld)65.2 %Normal.The [facility] Physician GroupComment on above:Performed By: #### GLULS #### Point of Care testing ,NRBC%0.0 /100{WBC}Normal0-0.5The [facility] Physician GroupComment on above: Performed By: #### GLULS #### Point of Care testing ,Platelet mean volume (Bld) [Entitic vol]9.2 fLNormal6.3-10.7The [facility] Physician GroupComment on above:Performed By: #### GLULS #### Point of Care testing ,Platelets (Bld) [#/Vol]184 10*3/yIMlmexn261-491Bjl [facility] Comment on above:Performed By: #### GLULS #### Point of Care testing ,RBC (Bld) [#/Vol]3.11 10*6/uLLow3.60-5.00The [facility] Physician GroupComment on above:Performed By: #### GLULS #### Point of Care testing ,WBC (Bld) [#/Vol]10.6 10*3/uLNormal3.8-11.6The [facility] Physician GroupComment on above:Performed By: #### GLULS #### Point of Care testing ,Comprehensive Metabolic Panelon 01-11-3631Ltxihqo [Mass/Vol]3.9 g/dLNormal 3.5-5.7The [facility] Physician GroupComment on above:Performed By: #### GLULS #### Point of Care testing ,Albumin/Globulin [Mass ratio]1.4 {ratio}NormalThe [facility] Comment on above:Performed By: #### GLULS #### Point of Care testing ,ALP [Catalytic activity/Vol]73 U/JOqshng81-210Zob [facility] Comment on above:Performed By: #### GLULS #### Point of Care testing ,ALT [Catalytic activity/Vol]15 U/LNormal7-52[facility] Comment on above:Performed By: #### GLULS #### Point of Care testing ,Anion gap [Moles/Vol]13.4 mmol/LNormal6.0-15.0[facility] Comment on above:Performed By: #### GLULS #### Point of Care testing ,AST [Catalytic activity/Vol]17 U/SFbymkp88-04Rmt [facility] Comment on above:Performed By: #### GLULS #### Point of Care testing ,Bilirubin [Mass/Vol]0.4 mg/dLNormal0.3-1.0The [facility] Physician GroupComment on above:Performed By: #### GLULS #### Point of Care testing ,Calcium [Mass/Vol]9.4 mg/dLNormal8.6-10.3The [facility] Physician GroupComment on above:Performed By: #### GLULS #### Point of Care testing ,Chloride [Moles/Vol]98 mmol/TSkelgy26-187Etj [facility] Physician GroupComment on above:Performed By: #### GLULS #### Point of Care testing ,CO2 [Moles/Vol]25.8 mmol/DImbsnw80.0-31.0The [facility] Physician GroupComment on above:Performed By: #### GLULS #### Point of Care testing ,Creatinine [Mass/Vol]1.44 mg/dLHigh0.60-1.20[facility] Physician [facility] Comment on above:Performed By: #### GLULS #### Point of Care testing ,Creatinine Clr Calc Prmwvknm45.12NoBarnesville Hospital GroupComment on above:Performed By: #### GLULS #### Point of Care testing ,Estimated GFR39.128 mL/MinNoSt. Francis HospitalComment on above: Performed By: #### GLULS #### Point of Care testing ,Globulin (S) [Mass/Vol]2.7 g/dLMercy HospitalComment on above:Performed By: #### GLULS #### Point of Care testing ,Glucose [Mass/Vol]371 mg/cMJedw12-161Qtg [facility] Physician [facility] HospitalComment on above:Result Comment: Random Glucose Reference Range is dependent on time and content of last meal. Glucose of more than 200 mg/dL in a nonstressed, ambulatory subject supports the diagnosis of Diabetes Mellitus. ADA recommended reference rangePerformed By: #### GLULS #### Point of Care testing ,Potassium [Moles/Vol]5.2 mmol/LHigh3.5-5.1The [facility] Physician [facility] HospitalComment on above:Performed By: #### GLULS #### Point of Care testing ,Protein [Mass/Vol]6.6 g/dLNormal6.4-8.9The [facility] Physician [facility] HospitalComment on above:Performed By: #### GLULS #### Point of Care testing ,Sodium [Moles/Vol]132 mmol/GAwv891-564Abk [facility] Physician [facility] HospitalComment on above:Performed By: #### GLULS #### Point of Care testing ,Urea nitrogen [Mass/Vol]42 mg/dLHigh7-25The [facility] Physician GroupComment on above:Performed By: #### GLULS #### Point of Care testing ,Creatine Kinaseon 21-50-2589BH [Catalytic activity/Vol]61 U/MTteafn71-002[facility] HlthComment on above:Performed By: #### BMP, CBC #### [facility] [address] [place] [address] USACreatine kinase [Enzymatic activity/volume] in Serum or PlasmaOrdered By: Ross Martinez on 30-13-2821CP [Catalytic activity/Vol] Creatine kinase [Enzymatic activity/volume] in Serum or Qhfuly30-531OrujmfescAshtabula County Medical CenterCreatinine [Mass/volume] in Serum or PlasmaOrdered By: Ross Martinez on 65-06-7559Seqevphifu [Mass/Vol]Creatinine [Mass/volume] in Serum or PlasmaHigh0.60-1.20[facility] CenterECG 12 lead ECGon 06-45-7715MLH 12 lead ECGTRIHE[facility] [address] [place] [address] [place] [address] Electrocardiograph Report Signed Patient: Diann Patel MR#: [id number] 525 : 1955 Acct:[id number] Age/Sex: 69 / F ADM Date: 02/15/25 Loc: Room: [address] [place] [address] Type: DIS INOo Attending Dr: Edvin Casper [...] ECGs available Confirmed by EDUARDO DEAN DO ([id number]) on 02/17/2025 6:39:30 AM Referred By: Electronically Signed By: EDUARDO DEAN DO Transcribed By: MUS Signed By Eduardo Dean DO 02/17 0639[facility] Physician GroupEosinophils Auto (Bld) [#/Vol]Ordered By: Ross Martinez on 25-70-2753Vsjhnqvcfbp (Bld) [#/Vol]Automated eosinophil count0.0-0.45[facility] CenterEosinophils/100 WBC Auto (Bld) Ordered By: Ross Martinez on 35-97-2069Flovxjxcdqc/100 WBC (Bld)Automated eosinophil %.[facility] CenterErythrocyte distribution width Auto (RBC) [Ratio]Ordered By: Ross Martinez on 92-32-9360Fkjfmbtjyek distribution width (RBC) [Ratio]Erythrocyte distribution width [Ratio] by Automated tpcdyGuba55.9-15.3FProMedica Defiance Regional HospitalGlobulin Calc (S) [Mass/Vol]Ordered By: Ross Martinez on 48-68-4462Tjkrbodh (S) [Mass/Vol]Serum globulin measurement by calculation (mass/volume)[facility] CenterGlucose Poct Glucometerson 34-06-5650Mzutnrc9Cfu8: Cleaned MeterNoColumbus Regional Healthcare System Physician GroupComment on above:Result Comment: PERFORMED BY: [place] [id number] PATHOLOGIST COMMISSION CLERK SANKET IKRKPATRICK M.D.Performed By: #### BMP, CBC #### [facility] [address] [place] [address] USAGlucose [Mass/Vol]377 mg/dLViera Hospital Physician GroupComment on above:Result Comment: Random Glucose Reference Range is dependent on time and content of last meal. Glucose of more than 200 mg/dL in a nonstressed, ambulatory subject supports the diagnosis of Diabetes Mellitus.Performed By: #### BMP, CBC #### [facility] [address] [place] [address], [place] [address] USAGlucose [Mass/volume] in Serum or PlasmaOrdered By: Ross Martinez on 24-89-1450Hqkthrb [Mass/Vol]Glucose [Mass/volume] in Serum or FbxfnyCfet65-414TxnggtkucAshtabula County Medical CenterComment on above:ADA recommended reference rangeRandom Glucose Reference Range is dependent on time and content of last meal. Glucose of more than 200 mg/dL in a nonstressed, ambulatory subject supports the diagnosisof Diabetes Mellitus.Glucose [Mass/volume] in Urine by Test stripOrdered By: Ross Martinez on 02-15-2025 Glucose Test strip (U) [Mass/Vol]Glucose [Mass/volume] in Urine by Test strip HighNormalAshtabula County Medical CenterHematocrit Auto (Bld) [Volume fraction]Ordered By: Ross Martinez on 71-58-8893Hrdskffrwm (Bld) [Volume fraction]Hematocrit [Volume Fraction] of Blood by Automated veqfuHue80.0-46.4 [facility] CenterHemoglobin Test strip Ql (U)Ordered By: Ross Martinez on 66-93-8252Yldkxqbzjt Ql (U)Hemoglobin [Presence] in Urine by Test stripNegOhioHealth Riverside Methodist HospitalHemoglobin [Mass/volume] in Blood Ordered By: Ross Martinez 68-05-9876Gtczkliykc (Bld) [Mass/Vol]Hemoglobin [Mass/volume] in PeuqdVje39.8-15.4FProMedica Defiance Regional HospitalKetones Test strip Ql (U)Ordered By: Ross Martinez on 99-40-4265Uswulcv Ql (U)Ketones [Presence] in Urine by Test stripNegOhioHealth Riverside Methodist Hospital Leukocyte esterase [Presence] in Urine by Test stripOrdered By: Ross Martinez on 04-08-9763Gvkhltbtv esterase Test strip Ql (U)Leukocyte esterase [Presence] in Urine by Test stripAvita Health SystemLeukocytes [#/volume] corrected for nucleated erythrocytes in Blood by Automated coun Ordered By: Ross Martinez on 43-35-2620TDH corrected for nucl RBC Auto (Bld) [#/Vol]Leukocytes [#/volume] corrected for nucleated erythrocytes in Blood by Automated coun3.8-11.6FProMedica Defiance Regional HospitalLipaseon 97-89-8965Hohdcy [Catalytic activity/Vol]41.0 U/BZjzbzk14.0-82.0[facility] Comment on above:Result Comment: PERFORMED BY: [facility] [place] [address] PATHOLOGIST COMMISSION CLERK SANKET KIRKPATRICK M.D.Performed By: #### GLULS #### Point of Care testing ,Lipase [Enzymatic activity/volume] in Serum or PlasmaOrdered By: Ross Martinez on 83-90-8151Vsuzka [Catalytic activity/Vol]Lipase [Enzymatic activity/volume] in Serum or Uduubd93.0-82.0[facility] Medical CenterLymphocytes Auto (Bld) [#/Vol]Ordered By: Ross Martinez on 44-50-7877Mkuhdjmqdcz (Bld) [#/Vol] Lymphocytes [#/volume] in Blood by Automated count1.00-4.8[facility] CenterLymphocytes/100 WBC Auto (Bld)Ordered By: Ross Martinez on 67-34-2574Rtpmikknqal/100 WBC (Bld)Lymphocytes/100 leukocytes in Blood by Automated count.[facility] CenterMCH Auto (RBC) [Entitic mass] Ordered By: Ross Martinez on 67-05-6738KKW (RBC) [Entitic mass]MCH [Entitic mass] by Automated count24.7-34.3FProMedica Defiance Regional HospitalMCHC Auto (RBC) [Mass/Vol]Ordered By: Ross Martinez on 40-13-5886FPPY (RBC) [Mass/Vol] MCHC [Mass/volume] by Automated count32.0-35.0[facility] MCV Auto (RBC) [Entitic vol]Ordered By: Ross Martinez on 98-04-9725UWR (RBC) [Entitic vol]MCV [Entitic volume] by Automated ouknl77-220ZpfvidvttAshtabula County Medical CenterMonocyte distribution width [Entitic volume] in Blood by Automated Ordered By: Ross Martinez on 04-68-8317Nbvhvbxb distribution width Auto (Bld) [Entitic vol]Monocyte distribution width [Entitic volume] in Blood by Automated 0.00-20.00[facility] CenterMonocytes Auto (Bld) [#/Vol]Ordered By: Ross Martinez on 84-41-7043Zrxgtuipr (Bld) [#/Vol]Automated blood monocyte countHigh0.0-0.8[facility] CenterMonocytes/100 WBC Auto (Bld) Ordered By: Ross Martinez on 08-02-6995Nrrkucvjo/100 WBC (Bld)Automated monocyte %.[facility] Medical CenterNatriuretic peptide B [Mass/Vol] Ordered By: Ross Martinez on 53-37-5708Wltjdcgkseu peptide B (Bld) [Mass/Vol] BNP ser/plasHigh5-100[facility] CenterNeutrophils Auto (Bld) [#/Vol]Ordered By: Ross Martinez on 83-70-2571Pyuihoynmsz (Bld) [#/Vol] Neutrophils [#/volume] in Blood by Automated count1.8-7.7FProMedica Defiance Regional HospitalNeutrophils/100 WBC Auto (Bld)Ordered By: Ross Martinez on 77-98-4741Ebzxwisglqc/100 WBC (Bld)Automated neutrophil %.[facility] Medical CenterNitrite Test strip Ql (U)Ordered By: Ross Martinez on 02-15-2025 Nitrite Ql (U)Nitrite [Presence] in Urine by Test stripNegativeAshtabula County Medical CenterNo Panel InformationOrdered By: Ross Martinez on 14-41-1789Ldhiyapzx GFR (CKD-EPI)39.128 mL/MinAshtabula County Medical Center Pharmacy Creatinine Clearance (Chem36.12[facility] Nucleated erythrocytes [Presence] in Blood by Automated countOrdered By: Ross Martinez on 52-09-3807Bevvheaqg RBC Auto Ql (Bld)Nucleated erythrocytes [Presence] in Blood by Automated count0-0.5FProMedica Defiance Regional Hospital Ophthalmic OCT panelon 50-21-4540DTGOMid [facility] Eye Images reviewed and comparison made to baseline, Images reviewed. To assess optic nerve function and for use in future follow-up. Reliability: poor. Left Eye Images reviewed and comparison made to baseline, Images reviewed. To assess optic nerve function and for use in future follow-up. Reliability: good and adequate. Notes Good nerve fiber layer (NFL) thickness both eyes (OU). Stable.[facility] HealthcareRadiology Study observation (narrative)[facility] HealthcareOptical coherence tomography study reporton 52-52-4939CAOCWilson Medical Center Radiology Study observation (narrative)[facility] HealthcarePlatelet mean volume Auto (Bld) [Entitic vol]Ordered By: Ross Martinez on 83-84-5858Ulvmccrt mean volume (Bld) [Entitic vol]Platelet mean volume [Entitic volume] in Blood by Automated count6.3-10.7FProMedica Defiance Regional HospitalPlatelets Auto (Bld) [#/Vol] Ordered By: Ross Martinez on 85-33-7269Ghbqokrnl (Bld) [#/Vol]Platelets [#/volume] in Blood by Automated -889LzkuhstchAshtabula County Medical Center Potassium [Moles/volume] in Serum or PlasmaOrdered By: Ross Martinez on 35-39-5754Esaoknhws [Moles/Vol]Potassium [Moles/volume] in Serum or PlasmaHigh 3.5-5.1FProMedica Defiance Regional HospitalProtein Test strip (U) [Mass/Vol]Ordered By: Ross Martinez on 67-04-0421Qnnfvns (U) [Mass/Vol]Protein [Mass/volume] in Urine by Test stripNegativeAshtabula County Medical CenterProtein [Mass/volume] in Serum or PlasmaOrdered By: Ross Martinez on 44-53-2827Wzngbbs [Mass/Vol]Protein [Mass/volume] in Serum or Plasma6.4-8.9[facility] Medical CenterRBC Auto (Bld) [#/Vol]Ordered By: Ross Martinez on 63-22-9025OIN (Bld) [#/Vol]Erythrocytes [#/volume] in Blood by Automated countLow3.60-5.00 [facility] CenterRespiratory (Upper) Panel, PCRon 02-15-2025 Respiratory (Upper) Panel, [...] Influenza A H3 Blank Space PERFORMED BY: [place] [address] PATHOLOGIST COMMISSION CLERK SANKET KIRKPATRICK M.D.[facility] Physician GroupComment on above: Performed By: #### BMP, CBC #### [address]Respiratory pathogens DNA and RNA panel - Nasopharynx by KOLE with non-probe detectionOrdered By: Edvin Casper on 02-15-2025 Respiratory pathogens DNA and RNA panel KOLE+non-probe (Nph)Respiratory pathogens DNA and RNA panel - Nasopharynx by KOLE with non-probe detectionAshtabula County Medical CenterRespiratory specimen influenza A virus, influenza B virus, respiratory syncytical virOrdered By: Ross Martinez on 02-15-2025 SARS-CoV-2 (COVID-19) RNA KOLE+probe Ql (Unsp spec)Respiratory specimen influenza A virus, influenza B virus, respiratory syncytical virToledo Hospitalerum or plasma albumin/globulin mass ratioOrdered By: Ross Martinez on 90-57-3724Wxtczev/Globulin [Mass ratio]Serum or plasma albumin/globulin mass ratioToledo Hospitalerum or plasma anion gap determinationOrdered By: Ross Martinez on 69-42-9009Yznoa gap [Moles/Vol]Serum or plasma anion gap determination6.0-15.0Toledo Hospitalodium [Moles/volume] in Serum or PlasmaOrdered By: Ross Martinez on 97-72-2287Dgntox [Moles/Vol]Sodium [Moles/volume] in Serum or PlasmaLow 136-145Toledo Hospitalpecific gravity Test strip (U) [Rel density]Ordered By: Ross Martinez on 83-23-4258Kjccsvxl gravity (U) [Rel density]Specific gravity of Urine by Test stripHigh1.001-1.030[facility] CenterTroponin I High Sensitivityon 44-32-2176Pyrmobyj I High Ckcliykbick13Urofib6-95Xav [facility] Physician GroupComment on above:Result Comment: The Troponin units of report have been changed to meet the Chest Pain Accreditation requirement, element EC5.M1l2. Troponin units are changed from pg/ml to ng/L. Also, the decimal is removed and results are in whole numbers. PERFORMED BY: [place] [id number] PATHOLOGIST COMMISSION CLERK SANKET KIRKPATRICK M.D.Performed By: #### BMP, CBC #### [place] [address] USATroponin I.cardiac [Mass/volume] in Serum or Plasma by Detection limit <= 0.01 ng/Ordered By: Ross Martinez on 57-94-2716Rkcrqswv I.cardiac DL <= 0.01 ng/mL [Mass/Vol]Troponin I.cardiac [Mass/volume] in Serum or Plasma by Detection limit <= 0.01 ng/0-15[facility] Comment on above:The Troponin units of report have been changed to meet the Chest Pain Accreditation requirement, element EC5.M1l2. Troponin units are changed from pg/ml to ng/L. Also, the decimal is removed and results are in whole numbers.Urea nitrogen [Mass/volume] in Serum or PlasmaOrdered By: Ross Martinez on 41-03-6303Snvx nitrogen [Mass/Vol]Urea nitrogen [Mass/volume] in Serum or PlasmaCity Hospital7-25[facility] CenterUrinalysison 02-15-2025 Appearance (U)ClearNormalClearDelray Medical Center Physician GroupComment on above: Order Comment: Name Collection Type:: Clean-Voided MidstreamPerformed By: #### GLULS #### Point of Care testing ,Bilirubin,UrineNegativeNormalNegativeDelray Medical Center Physician GroupComment on above:Order Comment: Name Collection Type:: Clean-Voided MidstreamPerformed By: #### GLULS #### Point of Care testing ,Color (U)YellowNormalYellowDelray Medical Center Physician GroupComment on above:Order Comment: Name Collection Type:: Clean-Voided MidstreamPerformed By: #### GLULS #### Point of Care testing ,Glucose Ql (U)150 mg/dLAtlantiCare Regional Medical Center, Mainland Campus Physician GroupComment on above: Order Comment: Name Collection Type:: Clean-Voided MidstreamPerformed By: #### GLULS #### Point of Care testing ,Ketones Ql (U)NegativeNormalNegativeDelray Medical Center Physician GroupComment on above:Order Comment: Name Collection Type:: Clean-Voided MidstreamPerformed By: #### GLULS #### Point of Care testing ,Leukocyte esterase Test strip Ql (U)NegativeNormalNegHCA [facility] Physician GroupComment on above:Order Comment: Name Collection Type:: Clean- Voided MidstreamPerformed By: #### GLULS #### Point of Care testing ,Nitrite,UrineNegativeNormalNegativeDelray Medical Center Physician GroupComment on above:Order Comment: Name Collection Type:: Clean-Voided MidstreamPerformed By: #### GLULS #### Point of Care testing ,Occult Blood,UrineNegativeNormalNegativeDelray Medical Center Physician GroupComment on above:Order Comment: Name Collection Type:: Clean-Voided MidstreamResult Comment: PERFORMED BY: [facility] [place] [address] PATHOLOGIST COMMISSION CLERK SANKET KIRKPATRICK M.D.Performed By: #### GLULS #### Point of Care testing ,pH (U)5.0 [pH]Normal5.0-9.0[facility] Physician GroupComment on above:Order Comment: Name Collection Type:: Clean-Voided MidstreamPerformed By: #### GLULS #### Point of Care testing ,Protein,UrineNegativeNormalNegativeThe [facility] Physician GroupComment on above:Order Comment: Name Collection Type:: Clean-Voided MidstreamPerformed By: #### GLULS #### Point of Care testing ,Specificy Underwood,Urine1.264Frnu5.001-1.030[facility] Physician GroupComment on above:Order Comment: Name Collection Type:: Clean-Voided MidstreamPerformed By: #### GLULS #### Point of Care testing ,Urobilinogen,UrineNormalNormalNormalThe [facility] Physician GroupComment on above:Order Comment: Name Collection Type:: Clean-Voided MidstreamPerformed By: #### GLULS #### Point of Care testing ,Urobilinogen Test strip (U) [Mass/Vol]Ordered By: Ross Martinez on 02-15-2025 Urobilinogen (U) [Mass/Vol]Urobilinogen [Mass/volume] in Urine by Test strip [facility] HospitalWBC Auto (Bld) [#/Vol]Ordered By: Ross Martinez on 47-05-3691FAE (Bld) [#/Vol]Leukocytes [#/volume] in Blood by Automated count3.8-11.6FProMedica Defiance Regional HospitalX-ray reportOrdered By: Julio Cesar Erwin on 78-73-6545Qjycz [place] [address] XRay Report Signed Patient: Diann Patel MR#: [id number] : 1955 Acct:[id number] Age/Sex: 69 / F ADM Date: 5 Loc: ER Room: Type: [facility] ER Attending Dr: Copies to: Ross Martinez [...] Jr, DO 02/15/251537 Signed By: 02/15/25 153 [facility] CenterXR chest 2V*on 52-63-8520ZC chest 2V*[facility] [place] [address] XRay Report Signed Patient: Diann Patel MR#: [id number] : 1955 Acct:[id number] Age/Sex: 69 / F ADM Date: 02/15/25 Loc: ER Room: Type: [facility] ER Attending Dr: Copies to: Ross Martinez [...] Erwin Jr, DO 02/15/251537 Signed By: 02/15/[address] [place] [address] Physician [facility] HospitalpH Test strip (U)Ordered By: Ross Martinez on 96-52-4024rB (U)pH of Urine by Test strip5.0-9.0[facility] CenterHbA1c (Bld) [Mass fraction]on 03-91-8236Xlehzrrjydafhj and review of laboratory resultsAbnormalSSM [facility] HealthcareLaboratory - Hematology and Cell countson 04-32-6041TzB1h (Bld) [Mass fraction]9.1 %[facility] HealthcareOffice Visiton 80-79-4066Boablt-up [id number] Diann Patel 1955 F Date Provider Department Center 12/20/2024 VALENTE BALTAZAR CARD [facility] Family History Problem Relation Age of Onset Diabetes Mother Cancer Mother Heart disease Father Alcohol abuse Brother Diabetes Brother Family Status - Relation Status Age at Mother Father Brother Level of Service:16004 IN OFFICE/OUTPATIENT ESTABLISHED MOD MDM 30 [facility] HospitalALL LIPID PROFILE (FASTING)on 64-03-2123LHTK HDL RATIO3.6NOCT HealthcareComment on above:3.3 - 4.4 LOW RISK 4.4 - 7.1 AVERAGE RISK 7.1 - 11.0 MODERATE RISK >11.0 HIGH RISK Cholesterol [Mass/Vol]160 mg/dLNINF - 200 mg/dLNOCT HealthcareCholesterol in HDL [Mass/Vol]44 mg/dL40 - 60 mg/dLNOCT HealthcareComment on above:> or =60 mg/dl - LOW CARDIOVASCULAR RISK <40 mg/dl - HIGH CARDIOVASCULAR RISK Magnesium [Mass/Vol]59 mg/dLNOCT HealthcareComment on above:<100 mg/dl OPTIMAL 100-129 mg/dl NEAR OR ABOVE OPTIMAL 130-159 mg/dl BORDERLINE HIGH 160-189 mg/dl HIGH >190 mg/dl VERY HIGH Magnesium [Mass/Vol]57.4 mg/dLNOCT HealthcareTriglyceride [Mass/Vol]287 mg/dL HighNINF - 150 mg/dLNOCT HealthcareCCF CMP (CMP) (FOR REMOTE [facility] USE)on 52-63-4607Ieevujh [Mass/Vol]3.5 g/dL3.4 - 5.0 g/dLNOCT HealthcareALBUMIN GLOBULIN RATIO1.1NOM[facility] HealthcareALP [Catalytic activity/Vol]84 U/L46 - 116 U/L [facility] HealthcareALT [Catalytic activity/Vol]22 U/L14 - 59 [...] 2NOMS HealthcareGlobulin (S) [Mass/Vol]3.3 g/dLNOMS HealthcareGlucose [Mass/Vol]174 mg/pDXwvt69 - 106 mg/dLNOMS HealthcarePotassium [Moles/Vol]5 mmol/L3.5 - 5.1 mmol/LNOMS HealthcareProtein [Mass/Vol]6.8 g/dL6.4 - 8.2 g/dLNOMS HealthcareSodium [Moles/Vol]142 mmol/L136 - 145 mmol/LNOMS HealthcareTBH EGFR-NON AF QHRXJLQI89Sty>=60 mL/min/1.73m 2[facility] HealthcareUrea nitrogen [Mass/Vol]19 mg/dLHigh7.0 - 18.0 mg/dLNOCT HealthcareUrea nitrogen/Creatinine [Mass ratio]17 mg/mgNOHarry S. Truman Memorial Veterans' HospitalNo Panel Informationon 19-68-9455Qtrojplyfzpcfe and review of laboratory resultsAbMcLaren Central Michigan CLINISYNCPershing Memorial HospitalLaboratory - Hematology and Cell countson 09-22-2024 HbA1c (Bld) [Mass fraction]9.5 %[facility] HospitalNo Panel Informationon 09-22-2024 Interpretation and review of laboratory resultsAbnoPrisma Health Hillcrest Hospital HealthcareOffice Visiton 41-21-8288Fpvoza-up [id number] Diann Patel 1955 F Date Provider Department Center 08/18/2024 Nayeli-CARMELLA ALLEN [facility] Family History Problem Relation Age of Onset Diabetes Mother Cancer Mother Heart disease Father Alcohol abuse Brother Diabetes Brother Family Status - Relation Status Age at Mother Father Brother Level of Service:20489 IN OFFICE/OUTPATIENT ESTABLISHED MOD MDM 30 MIN Reason for Visit and Comments: Coronary Artery Disease [187] Atrial Fibrillation [80] Valve Disorder [3372] Peripheral Vascular Disease [458]NormalOhio State Health System US ANKLE BRACHIAL INDEX (BRIDGER) WITHOUT EXERCISEon 89-57-6262OFNZ US ANKLE BRACHIAL INDEX (BRIDGER) WITHOUT EXERCISEErin [place] [address] and Vascular Lab Report [facility] US ANKLE BRACHIAL INDEX (BRIDGER) WITHOUT EXERCISE Patient Name: DIANN AMANDA Reading Physician: [id number] Nury Blackwell MD, RPVI Study Date: 07/20/2024 Ordering Physician: [id number] SOSA MRN/PID: [id number] Technologist: Chanda Martinez T Technologist 2: Date of /Age: 8 1955 / 69 years Gender: F Admission Status: Outpatient Location Performed: [facility] Diagnosis/ICD: Peripheral vascular disease, unspecified-I73.9 CPT Codes: 55586 Peripheral artery BRIDGER Only CONCLUSIONS: Right Lower [...] Left Brachial Pressure 175 mmHg 184 mmHg [id number] Nury Blackwell MD, RPVI Final [facility] HospitalUS Eye+Orbit - bilateralon 03-80-4183Xhfwfxjno: Cataract both eyes (OU) Testing Indication: Performed for preop measurements in the determination of an intraocular lens (IOL) for both eyes (OU) Test Reliability: Good quality both eyes (OU) Interpretation: Good measurements for intraocular lens (IOL) calculation purposes. Calculation made for both eyes (OU).[facility] Radiology Study observation (narrative)[facility] HospitalACT Coag (Bld)on 45-51-5989Hshgcckpggylym and review of laboratory resultsAbGalion Community HospitalInterpretation and review of laboratory resultsAbGalion Community HospitalInterpretation and review of laboratory resultsAbDelaware County HospitalInterpretation and review of laboratory resultsAbCleveland Clinic Euclid HospitalInterpretation and review of laboratory results [facility] ACTIVATED CLOTTING TIME LOWon 65-94-8508NRL Coag (Bld)282 [facility] on above:Target ACT range will vary based on the patient population, clinical status, and surgical intervention occurring. ACT Coag (Bld)234 [facility] on above:Target ACT range will vary based on the patient population, clinical status, and surgical intervention occurring. ACT Coag (Bld)271 [facility] on above:Target ACT range will vary based on the patient population, clinical status, and surgical intervention occurring. ACT Coag (Bld)316 [facility] on above:Target ACT range will vary based on the patient population, clinical status, and surgical intervention occurring. ACT Coag (Bld)334 [facility] HospitalComment on above:Target ACT range will vary based on the patient population, clinical status, and surgical intervention occurring. Activated clotting timeon 60-05-9422IMU Coag (Bld)282 [address]Comment on above:Result Comment: Target ACT range will vary based on the patient population, clinical status, and surgical intervention occurring.Performed By: #### 3184-9 #### MOHIT CORTEZMOTZER L ([id number]) [facility] ([facility]) [address] [place], [place] [address]TFH Coag (Bld)234 [address]Comascension standish hospital on above:Result Comment: Target ACT range will vary based on the patient population, clinical status, and surgical intervention occurring.Performed By: #### 3184-9 #### MOHIT SCHMOTZER L (66104) [facility] ([facility]) [address] [place], [place] [address]TIL Coag (Bld)271 [address]Comment on above:Result Comment: Target ACT range will vary based on the patient population, clinical status, and surgical intervention occurring.Performed By: #### 3184-9 #### MOHIT SCHMOTZER L (47079) [facility] ([facility]) [address] [place], [place] [address]HVV Coag (Bld)316 [address]Comment on above:Result Comment: Target ACT range will vary based on the patient population, clinical status, and surgical intervention occurring.Performed By: #### 3184-9 #### MOHIT SCHMOTZER L ([id number]) [facility] ([facility]) [address] [place], [place] [address]YJT Coag (Bld)334 [address]Comascension standish hospital on above:Result Comment: Target ACT range will vary based on the patient population, clinical status, and surgical intervention occurring.Performed By: #### 3184-9 #### MOHIT SCHMOTZER L ([id number]) [facility] ([facility]) [address] [place], [place] [address]HNGLONLC VASCULAR PROCEDUREon 06-21-2024 [facility] [employer] Transportation Director, [address] [place] [address] Cardiovascular Catheterization Report Patient Name: DIANN PATEL Performing Physician: [id number] Curry MD Study Date: 06/21/2024 Verifying Physician: [id number] Curry MD MRN/PID: [id number] Rn X Ray/Co-scrub: Ordering Physician: [id number] MARGARETH Meka JOHNASHERLEANA Date of /Age: 8 1955 / 68 years Fellow: [id number] Braeden Colin MD Gender: F Fellow: Study: Peripheral Intervention Procedure Description: After infiltration with 2% Lidocaine utilizing two-dimensional ultrasound and fluoroscopic guidance, the right femoral artery was cannulated with a Micro- Access Kit using a modified Seldinger technique. Subsequently a 5 Somali sheath was placed contralateral in the right femoral artery. The arterial sheath was sized up to 6 Somali. After completion of the procedure, A 6/7F Vascade Closure System was placed per protocol. Following routine access via the right ENROLLMENT MANAGEMENT COORDINATOR, we crossed up and over into [...] Posterior Tibial Artery: Entire PT is a PROJECT CONTROL OFFICER. Left Peroneal Artery: The left peroneal artery revealed no evidence of significant disease. Left Dorsalis Pedis Artery: Mid distal DP is a PROJECT CONTROL OFFICER. Peripheral Interventions: We exchanged the short right ENROLLMENT MANAGEMENT COORDINATOR sheath into a 6F 45 cm Jose sheath. We crossed into the distal PTusing Command wire. We performed multiple runs of the entire left SFA [except for the stent segement] and proximal popliteal using M hawk device, followed by CANAL STRUCTURE OPERATOR and DCB. Percutaneous peripheral intervention of the [...] CONCLUSIONS: 1. LLE severe claudication and CLI Equality class V: Patient status post successful revascularization using directional atherectomy_PTA_DCB to entire left SFA and popliteal with good results. 2. Continue home Plavix, resume home Eliquis tomorrow. 3. Follow-up in the clinic in 4 wee (more content not included)...UHRadiology, Radiologist, MD - 06/21/2024 [facility] [employer] Transportation Director, [address] [place] [address] Cardiovascular Catheterization Report Patient Name: DIANN PATEL Performing Physician: [id number] Curry MD Study Date: 06/21/2024 Verifying Physician: Tatum Curry MD MRN/PID: [id number] Rn X Ray/Co-scrub: Ordering Physician: [id number] MARGARETH ESCAMILLA Date of /Age: 8 1955 / 68 years Fellow: [id number] Braeden Colin MD Gender: F Fellow: Study: Peripheral Intervention Procedure Description: After infiltration with 2% Lidocaine utilizing two-dimensional ultrasound and fluoroscopic guidance, the right femoral artery was cannulated with a Micro- Access Kit using a modified Seldinger technique. Subsequently a 5 Somali sheath was placed contralateral in the right femoral artery. The arterial sheath was sized up to 6 Somali. After completion of the procedure, A 6/7F Vascade Closure System was placed per protocol. Following routine access via the right ENROLLMENT MANAGEMENT COORDINATOR, we crossed up and over into [...] Posterior Tibial Artery: Entire PT is a PROJECT CONTROL OFFICER. Left Peroneal Artery: The left peroneal artery revealed no evidence of significant disease. Left Dorsalis Pedis Artery: Mid distal DP is a PROJECT CONTROL OFFICER. Peripheral Interventions: We exchanged the short right ENROLLMENT MANAGEMENT COORDINATOR sheath into a 6F 45 cm Jose sheath. We crossed into the distal PTusing Command wire. We performed multiple runs of the entire left SFA [except for the stent segement] and proximal popliteal using M hawk device, followed by CANAL STRUCTURE OPERATOR and DCB. Percutaneous peripheral intervention of the [...] CONCLUSIONS: 1. LLE severe claudication and CLI Equality class V: Patient status post successful revascularization using directional atherectomy_PTA_DCB to entire left SFA and popliteal with good results. 2. Continue home Plavix, resume home Eliquis tomorrow. 3. Follow-up in the clinic in 4 weeks with repeat BRIDGER/TBI. If medial malleolus wound does not heal,then may consider PT intervention. 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-I70.245 CPT Codes: Angiography, Each 1st additional vessel studied after (more content not included)...NOMS HealthcareINVASIVE VASCULAR PROCEDUREAnn [facility] Forensic [facility], [facility] Transportation Director, [address] [place] [address] Cardiovascular Catheterization Report Patient Name: DIANN PATEL Performing Physician: [id number] Curry MD Study Date: 06/21/2024 Verifying Physician: [id number] Curry MD MRN/PID: [id number] Rn X Ray/Co-scrub: Ordering Physician: [id number] MARGARETH ESCAMILLA Date of /Age: 8 1955 / 68 years Fellow: [id number] Braeden Colin MD Gender: F Fellow: Study: Peripheral Intervention Procedure Description: After infiltration with 2% Lidocaine utilizing two-dimensional ultrasound and fluoroscopic guidance, the right femoral artery was cannulated with a Micro- Access Kit using a modified Seldinger technique. Subsequently a 5 Somali sheath was placed contralateral in the right femoral artery. The arterial sheath was sized up to 6 Somali. After completion of the procedure, A 6/7F Vascade Closure System was placed per protocol. Following routine access via the right ENROLLMENT MANAGEMENT COORDINATOR, we crossed up and over into [...] Posterior Tibial Artery: Entire PT is a PROJECT CONTROL OFFICER. Left Peroneal Artery: The left peroneal artery revealed no evidence of significant disease. Left Dorsalis Pedis Artery: Mid distal DP is a PROJECT CONTROL OFFICER. Peripheral Interventions: We exchanged the short right ENROLLMENT MANAGEMENT COORDINATOR sheath into a 6F 45 cm Jose sheath. We crossed into the distal PTusing Command wire. We performed multiple runs of the entire left SFA [except for the stent segement] and proximal popliteal using M hawk device, followed by CANAL STRUCTURE OPERATOR and DCB. Percutaneous peripheral intervention of the [...] PT intervention. 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-I70.245 CPT Codes: Angiography, Each 1st additional vessel studied after basic exam-94110; Angiography, Extremity,uni,S&I (PER)-99718; Ultrasound guidance for vascular access-29743; Revasc Fem/Po (more content not included)...[facility] HospitalRadiology Study observation (narrative)[facility]OM[facility] HealthcareINVASIVE VASCULAR PROCEDUREOrdered By: Radiologist Radiology on 80-96-4318KL[facility] [employer] Work Phone: Invasive vascular procedureon 06-21-2024 [facility] [employer] Transportation Director, [address] [place] [address] Cardiovascular Catheterization Report Patient Name: DIANN PATEL Performing Physician: [id number] Curry MD Study Date: 06/21/2024 Verifying Physician: [id number] Curry MD MRN/PID: [id number] Rn X Ray/Co-scrub: Ordering Physician: [id number] MARGARETH ESCAMILLA Date of /Age: 8 1955 / 68 years Fellow: [id number] Braeden Colin MD Gender: F Fellow: Study: Peripheral Intervention Procedure Description: After infiltration with 2% Lidocaine utilizing two-dimensional ultrasound and fluoroscopic guidance, the right femoral artery was cannulated with a Micro- Access Kit using a modified Seldinger technique. Subsequently a 5 Somali sheath was placed contralateral in the right femoral artery. The arterial sheath was sized up to 6 Somali. After completion of the procedure, A 6/7F Vascade Closure System was placed per protocol. Following routine access via the right ENROLLMENT MANAGEMENT COORDINATOR, we crossed up and over into [...] Posterior Tibial Artery: Entire PT is a PROJECT CONTROL OFFICER. Left Peroneal Artery: The left peroneal artery revealed no evidence of significant disease. Left Dorsalis Pedis Artery: Mid distal DP is a PROJECT CONTROL OFFICER. Peripheral Interventions: We exchanged the short right ENROLLMENT MANAGEMENT COORDINATOR sheath into a 6F 45 cm Jose sheath. We crossed into the distal PTusing Command wire. We performed multiple runs of the entire left SFA [except for the stent segement] and proximal popliteal using M hawk device, followed by CANAL STRUCTURE OPERATOR and DCB. Percutaneous peripheral intervention of the [...] CONCLUSIONS: 1. LLE severe claudication and CLI Equality class V: Patient status post successful revascularization using directional atherectomy_PTA_DCB to entire left SFA and popliteal with good results. 2. Continue home Plavix, resume home Eliquis tomorrow. 3. Follow-up in the clinic in 4 wee (more content not included)...Nely Hoffman MD - 06/21/2024 [facility] [employer] Transportation Director, [address] [place] [address] Cardiovascular Catheterization Report Patient Name: DIANN PATEL Performing Physician: [id number] Curry MD Study Date: 06/21/2024 Verifying Physician: [id number] Curry MD MRN/PID: [id number] Rn X Ray/Co-scrub: Ordering Physician: [id number] MARGARETH ESCAMILLA Date of /Age: 8 1955 / 68 years Fellow: [id number] Braeden Colin MD Gender: F Fellow: Study: Peripheral Intervention Procedure Description: After infiltration with 2% Lidocaine utilizing two-dimensional ultrasound and fluoroscopic guidance, the right femoral artery was cannulated with a Micro- Access Kit using a modified Seldinger technique. Subsequently a 5 Somali sheath was placed contralateral in the right femoral artery. The arterial sheath was sized up to 6 Somali. After completion of the procedure, A 6/7F Vascade Closure System was placed per protocol. Following routine access via the right ENROLLMENT MANAGEMENT COORDINATOR, we crossed up and over into [...] Posterior Tibial Artery: Entire PT is a PROJECT CONTROL OFFICER. Left Peroneal Artery: The left peroneal artery revealed no evidence of significant disease. Left Dorsalis Pedis Artery: Mid distal DP is a PROJECT CONTROL OFFICER. Peripheral Interventions: We exchanged the short right ENROLLMENT MANAGEMENT COORDINATOR sheath into a 6F 45 cm Jose sheath. We crossed into the distal PTusing Command wire. We performed multiple runs of the entire left SFA [except for the stent segement] and proximal popliteal using M hawk device, followed by CANAL STRUCTURE OPERATOR and DCB. Percutaneous peripheral intervention of the [...] CONCLUSIONS: 1. LLE severe claudication and CLI Equality class V: Patient status post successful revascularization using directional atherectomy_PTA_DCB to entire left SFA and popliteal with good results. 2. Continue home Plavix, resume home Eliquis tomorrow. 3. Follow-up in the clinic in 4 weeks with repeat BRIDGER/TBI. If medial malleolus wound does not heal,then may consider PT intervention. 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-I70.245 CPT Codes: Angiography, Each 1st additional vessel studied after basic exa (more content not included)...[facility] Work Phone: [facility] Work Phone: Radiology Study observation (narrative)[facility] Work Phone: US.doppler Extremity arteries - bilateral for physiologic artery study at rest and with exerciseon 06-16-2024 [place] [address] and Vascular Lab Report VASC US PVR WITHOUT EXERCISE Patient Name: DIANN AMANDA Reading Physician: [id number] Christine Beyer MD Study Date: 06/15/2024 Ordering Physician: [id number] MICHEAL NOVA MRN/PID: [id number] Technologist: Miles Costello RVT Technologist 2: Date of /Age: 8 1955 / 68 years Gender: F Admission Status: Outpatient Location Performed: [facility] Diagnosis/ICD: Peripheral vascular disease, unspecified-I73.9 CPT Codes: 09670 Peripheral artery PVR (multi segmental pressure CRITICAL [...] Left Brachial Pressure 171 mmHg 163 mmHg [id number] Christine Beyer MD Final Radiology, Radiologist, MD - 06/16/2024 [place] [address] and Vascular Lab Report VASC US PVR WITHOUT EXERCISE Patient Name: DIANN PATEL Reading Physician: [id number] Christine Beyer MD Study Date: 06/15/2024 Ordering Physician: [id number] NOVA MRN/PID: [id number] Technologist: Miles Costello RVT Technologist 2: Date of /Age: 8 1955 / 68 years Gender: F Admission Status: Outpatient Location Performed: [facility] Diagnosis/ICD: Peripheral vascular disease, unspecified-I73.9 CPT Codes: 60614 Peripheral artery PVR (multi segmental pressure CRITICAL RESULT Critical Result: Severe PAD in left leg. Notification called to MICHEAL NOVA APRN-GUN REPAIR CLERK on 06/15/2024 at 10:50:00 AM by Miles [...] Left Brachial Pressure 171 mmHg 163 mmHg [id number] Christine Beyer MD Final [facility].doppler Extremity arteries - bilateral for physiologic artery study at rest and with exerciseOrdered By: Radiologist Radiology on 06-16-2024 [facility] [employer] Work Phone: cBC panel Auto (Bld)on 25-77-4731Hioozxgixwk distribution width (RBC) [Ratio]14.6 %High11.5 - 14.5 %[facility]ans Health AdministrationHematocrit (Bld) [Volume fraction]35.8 %Low36.0 - 46.0 %[facility] Health AdministrationHemoglobin (Bld) [Mass/Vol]11.9 g/dLLow12.0 - 16.0 g/dL [facility] AdministrationInterpretation and review of laboratory results AbnormalUnAshtabula General Hospital (RBC) [Entitic mass]27.7 pg26.0 - 34.0 pgUnUC Medical Center (RBC) [Mass/Vol]33.2 g/dL32.0 - 36.0 g/dLUnRolling Plains Memorial Hospital ClevelandMCV (RBC) [Entitic vol]83 fL80 - 100 fLUniBucyrus Community HospitalNucleated RBC/100 WBC (Bld) [Ratio]0.0 % [facility] Health AdministrationPlatelets (Bld) [#/Vol]211 10*3/[facility]-Rittman HospitalRBC (Bld) [#/Vol]4.30 10*6/[facility]-Rittman HospitalWBC (Bld) [#/Vol]13.3 10*3/[facility], AvonErythrocyte distribution width (RBC) [Ratio] 14.6 %High11.5-14.5UnParkwood HospitalComment on above:Performed By: #### 54190-0 #### MOHIT Car (02887) [facility] ([facility]) [address] [place] [address]Coadyzbzjo (Bld) [Volume fraction]35.8 %Low36.0-46.0 [facility] Medical CenterComment on above:Performed By: #### 10335-1 #### MOHIT Car (62992) [facility] ([facility]) [address] [place] [address] 73401Ihcjekpocs (Bld) [Mass/Vol]11.9 g/dLLow12.0-16.0UnParkwood HospitalComment on above:Performed By: #### 57639-6 #### MOHIT Car (07909) [facility] ([facility]) [address] [place] [address] 13209VJR (RBC) [Entitic mass]27.7 oqIqrfek01.0-34.0UnParkwood HospitalComment on above:Performed By: #### 40659-0 #### MOHIT Car (45427) [facility] ([facility]) [address] [place] [address] 409[address]QVLT (RBC) [Mass/Vol]33.2 g/iSUdivra23.0-36.0UnParkwood HospitalComment on above:Performed By: #### 63041-4 #### MOHIT Car (73543) [facility] ([facility]) [address] [place], [place] [address]UGM (RBC) [Entitic vol]83 iEJzxuoe26-569FkhssjuhumParkwood HospitalComment on above:Performed By: #### 07206-4 #### MOHIT Car (81250) [facility] ([facility]) [address] [place], [place] [address]Rrvkkyvfi RBC/100 WBC (Bld) [Ratio]0.0 /100 WBCsNormal0.0-0.0 [facility] Medical CenterComment on above:Performed By: #### 83918-5 #### MOHIT Car (14650) [facility] ([facility]) [address] [place] [address] 697[address]Kngskfvfh (Bld) [#/Vol]211 x10*3/hMZnunvz838-073KtkidygkfuParkwood HospitalComment on above:Performed By: #### 11530-8 #### MOHIT Car (89963) [facility] ([facility]) [address] [place], [place] [address]HPY (Bld) [#/Vol]4.30 x10*6/uLNormal4.00-5.20UnParkwood HospitalComment on above:Performed By: #### 15700-5 #### MOHIT Car (50229) [facility] ([facility]) [address] [place] [address]IPT (Bld) [#/Vol]13.3 x10*3/uLHigh4.4-11.3[facility] Medical CenterComment on above:Performed By: #### 64399-6 #### MOHIT Car (78642) [facility] ([facility]) [address] [place] [address]Alxtrytwxtk tissue factor inducedon 66-43-2257SH Coag (PPP) [Time]12.6 sNormal9.8-12.8UnParkwood HospitalComment on above:Performed By: #### 5902-2 #### MOHIT Car (61214) [facility] ([facility]) [address] [place], [place] [address]KS Coag (PPP) [Time]on 10-77-9826YPT Coag (PPP) [Relative time]1.1 {INR}0.9 - 1.1UnRiverview Health InstituteInterpretation and review of laboratory resultsNormalUniBucyrus Community HospitalUnRiverview Health InstituteINR Coag (PPP) [Relative time]1.9Kodnxs8.9-1.1UnParkwood HospitalComment on above:Performed By: #### 5902-2 #### MOHIT Car (16416) [facility] ([facility]) [address] [place], [place] [address]Xyfjqlw-MJFdj 14-62-2646VV Coag (PPP) [Time]12.6 Doctors HospitalRenal function 2000 panelon 91-16-8046Ljqgpiw BCP dye [Mass/Vol]4.7 g/dL3.4 - 5.0 g/dLUnRiverview Health InstituteAnion gap [Moles/Vol]14 mmol/L10 - 20 mmol/[facility] HospitalCalcium [Mass/Vol]9.8 mg/dL8.6 - 10.6 mg/dLUnRiverview Health InstituteChloride [Moles/Vol]104 mmol/L98 - 107 mmol/[facility] HospitalCO2 [Moles/Vol]25 mmol/L21 - 32 mmol/[facility] HospitalCreatinine [Mass/Vol]1.36 mg/dLHigh0.50 - 1.05 mg/dLUnRiverview Health Institute GFR/1.73 sq M.predicted among non-blacks MDRD (S/P/Bld) [Vol rate/Area]42 mL/min/{1.73_m2}Low PINFUniBucyrus Community HospitalComment on above: Calculations of estimated GFR are performed using the 2020 CKD-EPI Study Refit equation without therace variable for the IDMS-Traceable creatinine methods. https://jasn.asnjournals.org/content//ASN.0459865089 Glucose [Mass/Vol]205 mg/iVGckq79 - 99 mg/dLUnRiverview Health Institute Interpretation and review of laboratory resultsAbnoalUniBucyrus Community HospitalPhosphate [Mass/Vol]4.1 mg/dL2.5 - 4.9 mg/dLVeterans Health AdministrationComment on above:The performance characteristics of phosphorus testing in heparinized plasma have been validated by the individual laboratory site where testing is performed. Testing on heparinized plasma is not approved by the FDA; however, such approval is not necessary.Potassium [Moles/Vol]5.5 mmol/L High3.5 - 5.3 mmol/[facility] HospitalSodium [Moles/Vol]137 mmol/L136 - 145 mmol/[facility] HospitalUrea nitrogen [Mass/Vol] 53 mg/dLHigh6 - 23 mg/dLUnRiverview Health InstituteUnRiverview Health InstituteAlbumin BCP dye [Mass/Vol]4.7 g/dLNormal3.4-5.0UnParkwood HospitalComment on above:Performed By: #### 79311-9 #### MOHIT Car (87381) [facility] ([facility]) [address] [place] [address] 855[address]Cwtce gap [Moles/Vol]14 mmol/PDqbeoh35-79VmlmeiadomParkwood HospitalComment on above:Performed By: #### 64330-5 #### MOHIT Car (38256) [facility] ([facility]) [address] [place] [address] 87[address]Scrjplp [Mass/Vol]9.8 mg/dLNormal8.6-10.6UnParkwood HospitalComment on above:Performed By: #### 09607-7 #### MOHIT Car (99749) [facility] ([facility]) [address] [place] [address] 82281Klwhumpu [Moles/Vol]104 mmol/IYaqdqw51-884NhnrinxubyParkwood HospitalComment on above:Performed By: #### 62503-0 #### MOHIT Car (75933) [facility] ([facility]) [address] [place], [place] [address]MS5 [Moles/Vol]25 mmol/CUlmgmj08-89XezxyvzmjlParkwood HospitalComment on above:Performed By: #### 60025-4 #### MOHIT Car (29198) [facility] ([facility]) [address] [place], [place] [address]Fjaqxmaxze [Mass/Vol]1.36 mg/dLHigh0.50-1.05UnParkwood HospitalComment on above:Performed By: #### 92748-4 #### MOHIT Car (57114) [facility] ([facility]) [address] [place] [address] 78518Hzotcehpyp filtration rate/1.73 sq M.shmjztubj97 mL/min/1.73m*2Low>60UnParkwood HospitalComment on above:Result Comment: Calculations of estimated GFR are performed using the 2020 CKD-EPI Study Refit equation without the race variable for the IDMS-Traceable creatinine methods. https://jasn.asnjournals.org/content//ASN.6870353845Srpewjrpb By: #### 35561-0 #### MOHIT Car (40623) [facility] ([facility]) [address] [place], [place] [address]Wausued [Mass/Vol]205 mg/oDAkdq23-77MrsutizvqsParkwood HospitalComment on above:Performed By: #### 65386-5 #### MOHIT Car (70998) [facility] ([facility]) [address] [place] [address]Cnyvwflml [Mass/Vol]4.1 mg/dLNormal2.5-4.9UnParkwood HospitalComment on above:Result Comment: The performance characteristics of phosphorus testing in heparinized plasma have bee n validated by the individual laboratory site where testing is performed. Testing on heparinizedplasma is not approved by the FDA; however, such approval is not necessary.Performed By: #### 03854-7 #### MOHIT Car (65525) [facility] ([facility]) [address] [place], [place] [address]Pidpkxwmp [Moles/Vol]5.5 mmol/LHigh3.5-5.3[facility] Medical CenterComment on above:Performed By: #### 30494-1 #### MOHIT Car (08846) [facility] ([facility]) [address] [place] [address] 504[address]Ofkfmr [Moles/Vol]137 mmol/GNnltyj053-965DpttztsrfeParkwood HospitalComment on above:Performed By: #### 23099-8 #### MOIHT Car (99475) [facility] ([facility]) [address] [place] [address] 052[address]Zwih nitrogen [Mass/Vol]53 mg/dLHigh6-23[facility] Medical CenterComment on above:Performed By: #### 83865-7 #### MOHIT Car (28609) [facility] ([facility]) [address] [place] [address]07[address]LB.doppler Extremity arteries - bilateral for physiologic artery study at rest and with exerciseon 48-79-9521Qfkouuzmi Study observation (narrative)[facility] US PVR WITH EXERCISEon 48-81-6716VFYT US PVR WITH EXERCISE[address] [address] and Vascular Lab Report [facility] US PVR WITHOUT EXERCISE Patient Name: DIANN Raines Physician: [id number] Christine Beyer MD Study Date: 06/15/2024 Ordering Physician: [id number] MICHEAL NOVA MRN/PID: [id number] Technologist: Miles Costello RVT Technologist 2: Date of /Age: 8 1955 / 68 years Gender: F Admission Status: Outpatient Location Performed: [facility] Diagnosis/ICD: Peripheral vascular disease, unspecified-I73.9 CPT Codes: 27511 Peripheral artery PVR (multi segmental pressure CRITICAL [...] Left Brachial Pressure 171 mmHg 163 mmHg [id number] Christine Beyer MD Final [facility] HospitalCreatinine [Mass/volume] in Serum or PlasmaOrdered By: Rodrigo Yousif on 05-19-2024 Creatinine [Mass/Vol]0.98 mg/dL0.60-1.20[facility] CenterNo Panel InformationOrdered By: Rodrigo Yousif on 12-63-6383Kkwrssyet GFR (CKD-EPI)> 60.0 mL/MinAshtabula County Medical CenterPharmacy Creatinine Clearance (Chem51.32[facility] Medical CenterUrea nitrogen [Mass/volume] in Serum or PlasmaOrdered By: Rodrigo Yousif on 97-62-5274Ylrk nitrogen [Mass/Vol]40 mg/dLHigh Point HospitalToledo HospitalEGMENTAL BLOOD PRESSUREon 75-28-6884A[address] [address] Cardiology Report Signed Patient: DIANN PATEL MR#: [id number] : 1955 Acct:[id number] Age/Sex: 68 / F ADM Date: 12/03/23 Loc: CARD Attending Dr: ALEXIS GILMORE Ordering Physician: ALEXIS GILMORE Date of Service: 12/03/23 Procedure(s): CA segmental UE or LE LIZETH Accession Number(s): [id number] cc: CHAMP BELL ; ALEXIS GILMORE [facility] Test Date: 2023-12-03 Pat Name: DIANN PATEL Department: Room: - Gender: Female Cupola Melter Helper: RUSH MC : 1955 Requested By: ALEXIS GILMORE Order Number: [id number] Reading MD: LIZETTE MCGHEE Interpretive Statements Monophasic [...] 12/04/23 0727 12/04/23 0727 DD/ 1346 TD/TT: District Or District Office Director:JULIOHRadiology, Radiologist, - 12/04/2023 [place] [address] Cardiology Report Signed Patient: DIANN PATEL MR#: [id number] : 1955 Acct:[id number] Age/Sex: 68 / F ADM Date: 12/03/23 Loc: CARD Attending Dr: ALEXIS GILMORE Ordering Physician: ALEXIS GILMORE Date of Service: 12/03/23 Procedure(s): CA segmental UE or LE LIZETH Accession Number(s): [id number] cc: CHAMP BELL ; ALEXIS GILMORE [facility] Test Date: 2023-12-03 Pat Name: DIANN PATEL Department: Room: - Gender: Female Cupola Melter Helper: RUSH MC : 1955 Requested By: ALEXIS GILMORE Order Number: [id number] Reading MD: LIZETTE MCGHEE Interpretive Statements Monophasic [...] 12/04/23 0727 12/04/23 0727 DD/ 1346 TD/TT: District Or District Office Director: PRIYANKA PerdomoSEGMENTAL BLOOD PRESSUREOrdered By: Radiologist Radiology on 38-59-5481IFVY [employer] Work Phone: SEGMENTAL BLOOD PRESSUREon 73-59-7752Biruhbkqz Study observation (narrative)[facility] HealthcareCT STROKE HEAD WOon 56-22-2692XV STROKE HEAD WOHEAD CT WITHOUT CONTRAST: 01/31/2023 [...] Electronically authenticated by: CHANTAL KILLIAN Date: 2023-01-31 12:44[facility] HospitalCreatinine and Glomerular filtration rate.predicted panel (S/P/Bld)Ordered By: Geo Mathew on 62-94-7560Djxptujtas [Mass/Vol]1.75 mg/dL0.44-1.03[facility] Medical CenterEstimated glomerular filtration rate (GFR) non- AmericanOrdered By: Geo Mathew on 01-13-2023 GFR/1.73 sq M.predicted among non-blacks MDRD (S/P/Bld) [Vol rate/Area]29 mL/Min [facility] CenterNo Panel InformationOrdered By: Geo Mathew on 35-02-5521Gqfjsireo GFR ()35 mL/MinAshtabula County Medical CenterComment on above:GFR estimated reference range: According to KDOQI guidelines, <60 ml/min/1.73m2 is sufficient todiagnose a patient with chronic kidney disease.Pharmacy Creatinine Clearance (Chem27.91[facility] Medical CenterUrea nitrogen [Mass/volume] in Serum or PlasmaOrdered By: Geo Mathew on 54-00-2411Qucf nitrogen [Mass/Vol]48 mg/dL9-[facility] Medical CenterALBUMINon 67-22-4707Ylfvqlq [Mass/Vol]3.5 g/dLNormal 3.4-5.0The [facility] HospitalComment on above:Performed By: #### BMP, PREALB, ALB ####[facility] [address] [place] [address]Dr. Sruthi LariosC AUTO DIFFon 92-90-3341HMGG #0.0 103/ulNormal0.0-0.1The [facility] HospitalComment on above:Performed By: #### CBC #### [facility] [address] [place] [address] [address] Sruthi ArechigaBasophils/100 WBC (Bld)0.5 %Normal0.2-2.0The [facility] Comment on above:Performed By: #### CBC #### [facility] [address] [place] [address] [address] Sruthi Shields #0.3 103/ulNormal0.0-0.7The [facility] HospitalComment on above: Performed By: #### CBC #### [facility] [address] [place] [address] [address] Sruthi Joyosinophils/100 WBC (Bld)3.6 %Normal0.9-7.0The [facility] Comment on above:Performed By: #### CBC #### [facility] [address] [place] [address] [address] Sruthi Joyrythrocyte distribution width (RBC) [Ratio]14.5 %Xwilvo03.0-15.[address] [facility] HospitalComment on above:Performed By: #### CBC #### [facility] [address] [place] [address] [address] Sruthi ArechigaHematocrit (Bld) [Volume fraction]37.7 %Bjxkfd79.0-48.0The [facility] HospitalComment on above:Performed By: #### CBC #### [facility] [address] [place] [address] [address] Sruthi ArechigaHemoglobin (Bld) [Mass/Vol]11.9 g/dLCritically low12.0-16.0[facility] on above:Performed By: #### CBC #### [facility] [address] [place] [address] [address] Sruthi Conklin #0.02 10e3/ulNormal0.00-0.03[facility] on above:Performed By: #### CBC #### [facility] [address] [place] [address] Dr. Sruthi Conklin %0.2 %Normal0.0-0.5[facility] on above: Performed By: #### CBC #### [facility] [address] [place] [address] Dr. Sruthi Serrano #2.7 103/ulNormal1.2-3.8[facility] on above:Performed By: #### CBC #### [facility] [address] [place] [address] Dr. Sruthi Tijerinahocytes/100 WBC (Bld)32.2 %Dnxgfm70.5-60.0[facility] on above:Performed By: #### CBC #### [facility] [address] [place] [address] Dr. Sruthi ToscanoUAL DIFF REQNONormalThe [facility] on above: Performed By: #### CBC #### [facility] [address] [place] [address] Dr. Sruthi Torres (RBC) [Entitic mass]26.8 rrFfapyr92.7-34.0The [facility] on above:Performed By: #### CBC #### [facility] [address] [place] [address] Dr. Sruthi Torres (RBC) [Mass/Vol]31.6 g/pAXbdgna62.9-35.2[facility] on above:Performed By: #### CBC #### [facility] [address] [place] [address] Dr. Sruthi Torres (RBC) [Entitic vol]84.9 wVAodvrz19.0-99.0The [facility] HospitalComment on above:Performed By: #### CBC #### [facility] [address] [place] [address] [address] Sruthi Valladares #0.8 103/ulNormal0.3-0.8The [facility] HospitalComment on above:Performed By: #### CBC #### [facility] [address] [place] [address] [address] Sruthi Alegriaocytes/100 WBC (Bld)9.6 %Normal1.7-12.0The [facility] Comment on above:Performed By: #### CBC #### [facility] [address] [place] [address] Dr. Sruthi Carl #4.5 103/ulNormal1.4-6.5The [facility] HospitalComment on above:Performed By: #### CBC #### [facility] [address] [place] [address] Dr. Sruthi Gomezutrophils/100 WBC (Bld)53.9 %Hixrlp43.0-75.0The [facility] HospitalComment on above:Performed By: #### CBC #### [facility] [address] [place] [address] Dr. Sruthi Flores mean volume (Bld) [Entitic vol]10.8 fLNormal9.5-13.5The [facility] HospitalComment on above:Performed By: #### CBC #### [facility] [address] [place] [address] Dr. Sruthi ArechigaPLT246 103/mgJkxyes308-192Jgc [facility] HospitalComment on above: Performed By: #### CBC #### [facility] [address] [place] [address] Dr. Sruthi ArechigaRBC4.44 106/ulNormal4.20-5.40The [facility] HospitalComment on above:Performed By: #### CBC #### [facility] [address] [place] [address] Dr. Sruthi ArechigaWBC8.4 103/ulNormal4.0-11.0The [facility] HospitalComment on above: Performed By: #### CBC #### [facility] [address] [address] [address] Sruthi Choevid-19 PCR ([facility]AR[facility])on 60-83-9837QQMB-CoV-2 (COVID-19) RNA KOLE+probe Ql (Unsp spec)Not detectedNormalNOT DETECTEDHolzer Health System Comment on above:Result Comment: This test is not yet approved or cleared by the [place] FDA. When there are no FDA-approved or cleared tests available, and other criteria are met, FDA can make tests available under an emergency access mechanism called an Emergency Use Authorization (EUA). The EUA for this test is supported by the Staffing Analyst of Health and Human Service's (HHS's) declaration [...] consistent with SARS-CoV-2.Performed By: #### CVDTBH #### [facility] [address] [place] [address] Dr. Sruthi ArechigaGLYCOHEMOGLOBIN A1Con 24-12-1459MHP RECOMMENDATIONSEE BELOWNormal The [facility] HospitalComascension standish hospital on above:Result Comment: ADA RECOMMENDED LIMIT 4.0 - 6.0 ADA THERAPEUTIC TARGET < 7.0 ACTION SUGGESTED > 7.0Performed By: #### HSTROPN #### [facility] [address] [place] [address] Dr. Sruthi ArechigaGlucose [Mass/Vol]255 mg/dLNormalThUC Medical Center on above:Performed By: #### HSTROPN #### [facility] [address] [place] [address] Dr. Sruthi ArechigaHbA1c (Bld) [Mass fraction]10.5 %Critically high4.5-6.2The [facility] HospitalComment on above:Performed By: #### HSTROPN #### [facility] [address] [address] [address] Sruthi CEJA #1on 27-91-0128XZYP NARES #1Culture Observations: NO GROWTH OF MRSA AT 48 HOURS.NormalThe Carthage HospitalComment on above: Performed By: #### MRSAN1 ####[facility] L[address] [place], [place] [address]Dr. Sruthi ChangPREALBUMINon 67-37-2637Itxjeszjoc [Mass/Vol]23.6 mg/nISacpaz40.9-45.5The [facility] HospitalComment on above: Performed By: #### BMP, PREALB, ALB ####[facility] Djdedxywxx[address] [place], [place] [address]Dr. Sruthi ChangPROF CHEM 8 (BAS METB)on 35-10-3709Jyyuf gap [Moles/Vol]11.2 mmol/LNormalThe Carthage HospitalComment on above:Performed By: #### BMP, PREALB, ALB ####[facility] Fsxuuvuz[address] [place], [place] [address]Dr. Sruthi ChangCalcium [Mass/Vol]9.1 mg/dL Normal8.5-10.1The [facility] HospitalComment on above:Performed By: #### BMP, PREALB, ALB ####[facility] Fxrgfmnoeu[address] [place], [place] [address]Dr. Yilan ChangChloride [Moles/Vol]105 mmol/SPtdctf70-385Krt [facility] HospitalComment on above:Performed By: #### BMP, PREALB, ALB ####[facility] Zhfx[address]ooe[address] [place], [place] [address]Dr. Kamalalan ChangCO2 [Moles/Vol]26.3 mmol/BCaubod76.0-32.0The [facility] HospitalComment on above: Performed By: #### BMP, PREALB, ALB ####[facility] Y[address]wz[address] [place], [place] [address]Dr. Yilan ChangCreatinine [Mass/Vol]0.72 mg/dL Normal0.55-1.02The [facility] HospitalComment on above:Performed By: #### BMP, PREALB, ALB ####[facility] [address] [place] [address]Dr. Yilan ChangEGFR-AF CYMRAES>60Normal>=60The [facility] HospitalComment on above:Performed By: #### BMP, PREALB, ALB ####[facility] Labmuelisc[address] [place] [address]Dr. Yilan ChangEGFR-NON AF CYMRAES>60Normal >=60The [facility] HospitalComment on above:Performed By: #### BMP, PREALB, ALB ####[facility] [address] [place] [address]Dr. Yilan ChangGlucose [Mass/Vol]119 mg/dLCritically taek63-734Sbb [facility] Comment on above:Performed By: #### BMP, PREALB, ALB ####[facility] [address] [place], [place] [address]Dr. Yilan ChangPotassium [Moles/Vol]4.5 mmol/LNormal3.5-5.1The [facility] HospitalComment on above: Performed By: #### BMP, PREALB, ALB ####[facility] [address] [place] [address]Dr. Yilan ChangSodium [Moles/Vol]138 mmol/LNormal 136-145The [facility] HospitalComment on above:Performed By: #### BMP, PREALB, ALB ####[facility] [address] [address]Dr. Yilan ChangUrea nitrogen [Mass/Vol]18.0 mg/dLNormal7.0-18.0The [facility] Comment on above:Performed By: #### BMP, PREALB, ALB ####[facility] [address] [address]Dr. Yilan ChangUrea nitrogen/Creatinine [Mass ratio]25.0 mg/mgNormalThe [facility] HospitalComment on above:Performed By: #### BMP, PREALB, ALB ####[facility] [address] [id number]. Sruthi ArechigaCovid-19 PCR (CVDTB)on 83-99-6818ZQMI-CoV-2 (COVID-19) RNA KOLE+probe Ql (Unsp spec)Not detectedNormal NOT DETECTEDThe [facility] Hospitalment on above:Result Comment: When diagnostic testing [...] for this test is supported by the [place] of Health and Human Service's declaration that [...] longer be used).Performed By: #### CVDTBH #### [facility] [address] [address] [address] Sruthi Sarmiento 43-06-9780Glpywrkxdii peptide B (Bld) [Mass/Vol]1389.0 pg/mLCritically high<=900.0The [facility] HospitalComment on above:Performed By: #### BNP, BMP ####[facility] Zwqlgpforj5[address] [place], [place] [address]KaDr. Sruthi ArechigaCBC AUTO DIFFon 20-35-2841PUKJ #0.0 103/ulNormal0.0-0.[address] [facility] HospitalComment on above:Performed By: #### CBC ####[facility] Gsaoprqdmd[address] [id number].Yilan Arechiga Basophils/100 WBC (Bld)0.5 %Normal0.2-2.0The [facility] HospitalComment on above: Performed By: #### CBC ####[facility] [address]xgkrpikxr[address] [place], [place] [address]Dr.Yilan ChangEO #0.2 103/ulNormal0.0-0.7The [facility] HospitalComment on above:Performed By: #### CBC ####[facility] Bzczazzqnb[address] [place], [place] [address]Dr.Sruthi ChangEosinophils/100 WBC (Bld)2.4 %Normal0.9-7.0The [facility] HospitalComment on above:Performed By: #### CBC ####[facility] Eduzsjlysx[address] [place], [place] [address]Dr.Kamalalan ChangErythrocyte distribution width (RBC) [Ratio]13.2 %Normal 11.0-15.0The [facility] HospitalComment on above:Performed By: #### CBC ####[facility] [address]yjrdqyblf[address] [place], [place] [address]Dr. Kamalalan ChangHematocrit (Bld) [Volume fraction]32.4 %Critically low36.0-48.0The [facility] HospitalComment on above:Performed By: #### CBC ####[facility] Hufrxpamje97[address] [place], [place] [address]Dr.Sruthi ChangHemoglobin (Bld) [Mass/Vol]10.2 g/dLCritically low12.0-16.0The [facility] HospitalComment on above:Performed By: #### CBC ####[facility] Xhbdgabqsz24[address] [place], [place] [address]Dr.Kamalalan ChangIG #0.04 10e3/ulCritically high0.00-0.[address] [facility] HospitalComment on above:Performed By: #### CBC ####[facility] Gjkrrdleae8[address] [place], [place] [address]Dr.Kamalalan ChangIG % 0.5 %Normal0.0-0.5The [facility] HospitalComment on above:Performed By: #### CBC ####[facility] Vaqbsurgta[address] [place], [place] [address]Dr. Sruthi ArechigaLYH #2.1 103/ulNormal1.2-3.8The [facility] HospitalComment on above: Performed By: #### CBC ####[facility] [address]xnuovfeo[address] [address]Dr.Sruthi ArechigaLymphocytes/100 WBC (Bld)23.9 %Normal 20.5-60.0The [facility] HospitalComment on above:Performed By: #### CBC ####[facility] Zynldypzly[address] [place], [place] [address]Dr. Sruthi ArechigaMANUAL DIFF REQNONormalThe [facility] HospitalComment on above: Performed By: #### CBC ####[facility] Ivehbbnlbj30[address] [place], [place] [address]Dr.Sruthi ArechigaH (RBC) [Entitic mass]26.8 pgNormal 26.7-34.0The [facility] HospitalComment on above:Performed By: #### CBC ####[facility] Zogccqxqea5267[address] [place], [place] [address]Dr. Sruthi ArechigaHC (RBC) [Mass/Vol]31.5 g/aNVzjnae95.9-35.2The [facility] Comment on above:Performed By: #### CBC ####[facility] Qsdrvpcefx495[address] [place], [place] [address]Dr.Sruthi ArechigaMCV (RBC) [Entitic vol]85.0 fL Btmhjy00.0-99.0The [facility] HospitalComment on above:Performed By: #### CBC ####[facility] Jhjtomibcx[address] [place], [place] [address]Dr. Sruthi ArechigaMONO #1.1 103/ulCritically high0.3-0.8The [facility] HospitalComment on above:Performed By: #### CBC ####[facility] Niixozgmbd0965[address] [place], [place] [address]Dr.Sruthi ArechigaMonocytes/100 WBC (Bld)13.1 %Critically high1.7-12.0The [facility] HospitalComment on above:Performed By: #### CBC ####[facility] Stkxxqbrpa[address] [address]Dr. Sruthi ChangNEUT #5.2 103/ulNormal1.4-6.5The [facility] HospitalComment on above: Performed By: #### CBC ####[facility] Hmdmfjpqkd[address] [place], [place] [address]Dr.Sruthi ChangNeutrophils/100 WBC (Bld)59.6 %Normal 43.0-75.0The [facility] HospitalComment on above:Performed By: #### CBC ####[facility] Exqlufthww7038[address] [place], [place] [address]Dr. Sruthi ChangPlatelet mean volume (Bld) [Entitic vol]12.6 fLNormal9.5-13.5The [facility] HospitalComment on above:Performed By: #### CBC ####[facility] Eheewzwfxu[address] [place], [place] [address]Dr.Sruthi ErtglSFV135 103/ul Critically mcf842-430Hyy [facility] HospitalComment on above:Performed By: #### CBC ####[facility] Euabmsqzck6786[address] [place], [place] [address]Dr. Sruthi ChangRBC3.81 106/ulCritically low4.20-5.40The [facility] on above:Performed By: #### CBC ####[facility] Jwebouzqaz5615[address] [place], [place] [address]Dr.Sruthi ChangWBC8.7 103/ulNormal4.0-11.0The [facility] HospitalComment on above:Performed By: #### CBC ####[facility] Iqepmryvuo54[address] [place], [place] [address]Dr.Sruthi ChangPROF CHEM 8 (BAS METB)on 37-25-1282Yaxof gap [Moles/Vol]12.0 mmol/LNormalThe [facility] HospitalComment on above:Performed By: #### BNP, BMP ####[facility] Uxrzqimuaz48[address] [place], [place] [address]Dr. Kamalasven ChangCalcium [Mass/Vol]9.0 mg/dLNormal8.5-10.1The [facility] HospitalComment on above:Performed By: #### BNP, BMP ####[facility] Rgeydxqesi211[address] [place], [place] [address]Dr. Yilan ChangChloride [Moles/Vol]99 mmol/LNormal 98-107The [facility] HospitalComment on above:Performed By: #### BNP, BMP ####[facility] Ojwmlzazit57[address] [place], [place] [address]Dr. Yilan ChangCO2 [Moles/Vol]29.4 mmol/NYzdlbs02.0-32.0The [facility] HospitalComment on above:Performed By: #### BNP, BMP ####[facility] Speflrmtml5713[address] [place], [place] [address]Dr. Yilan ChangCreatinine [Mass/Vol]0.86 mg/dL Normal0.55-1.02The [facility] HospitalComment on above:Performed By: #### BNP, BMP ####[facility] Rvgbympqff9787[address] [place], [place] [address]Dr. Yilan ChangEGFR-AF CYMRAES>60Normal>=60The [facility] HospitalCom[facility] on above: Performed By: #### BNP, BMP ####[facility] Wuwpxhrfho7730[address] [place], [place] [address]Dr. Yilan ChangEGFR-NON AF CYMRAES>60Normal>=60The [facility] HospitalComasc[facility] on above:Performed By: #### BNP, BMP ####[facility] Xjgadvocxg[address] [place], [place] [address]Dr. Yilan Arechiga Glucose [Mass/Vol]185 mg/dLCritically pmhf43-808Wqx [facility] HospitalComment on above:Performed By: #### BNP, BMP ####[facility] Vwuqbevkfe13[address] [place], [place] [address]Dr. Yilan ChangPotassium [Moles/Vol]4.4 mmol/LNormal 3.5-5.1The [facility] HospitalComment on above:Performed By: #### BNP, BMP ####[facility] Nybpklcmbs4940[address] [place], [place] [address]Dr. Yilan ChangSodium [Moles/Vol]136 mmol/WKhthuz411-567Sgd [facility] HospitalComment on above:Performed By: #### BNP, BMP ####[facility] [address]zvrj[address] [address]DrIndu ArechigaUrea nitrogen [Mass/Vol]27.0 mg/dL Critically high7.0-18.0The [facility] HospitalComment on above:Performed By: #### BNP, BMP ####[facility] [address]rb[address] [address]DrIndu Negro ChangUrea nitrogen/Creatinine [Mass ratio]31.4 mg/mgNormalThe [facility] HospitalComment on above:Performed By: #### BNP, BMP ####[facility] [address]ewdqlinxu[address] [address]Dr. Sruthi LariosC AUTO DIFFon 73-13-5225EUQL #0.0 103/ulNormal0.0-0.1The [facility] HospitalComment on above:Performed By: #### CVDTBH #### [facility] [address] [place] [address] Dr. Sruthi ArechigaBasophils/100 WBC (Bld)0.4 %Normal0.2-2.0The [facility] Comment on above:Performed By: #### CVDTBH #### [facility] [address] [place] [address] Dr. Sruthi Shields #0.2 103/ulNormal0.0-0.7The [facility] HospitalComment on above: Performed By: #### CVDTBH #### [facility] [address] [place] [address] Dr. Sruthi Joyosinophils/100 WBC (Bld)2.4 %Normal0.9-7.0The [facility] Comment on above:Performed By: #### CVDTBH #### [facility] [address] [place] [address] Dr. Sruthi Joyrythrocyte distribution width (RBC) [Ratio]13.3 %Yfnyqj47.0-15.[address] [facility] HospitalComment on above:Performed By: #### CVDTBH #### [facility] [address] [address] [address] Sruthi ArechigaHematocrit (Bld) [Volume fraction]32.0 %Critically low36.0-48.[address] [facility] HospitalComment on above:Performed By: #### CVDTBH #### [facility] [address] [address] [address] Sruthi ArechigaHemoglobin (Bld) [Mass/Vol]10.0 g/dLCritically low12.0-16.0The [facility] HospitalComment on above:Performed By: #### CVDTBH #### [facility] [address] [address] [address] Sruthi Conklin #0.05 10e3/ulCritically high0.00-0.03The [facility] on above:Performed By: #### CVDTBH #### [facility] [address] [address] [address] Sruthi Conklin %0.5 %Normal0.0-0.5The [facility] HospitalComment on above: Performed By: #### CVDTBH #### [facility] [address] [address] [address] Sruthi Serrano #2.4 103/ulNormal1.2-3.8The [facility] HospitalComment on above:Performed By: #### CVDTBH #### [facility] [address] [address] [address] Sruthi Tijerinahocytes/100 WBC (Bld)24.5 %Wlztrz66.5-60.0[facility] SystemComment on above:Performed By: #### CVDTBH #### [facility] [address] [address] [address] Sruthi ToscanoUAL DIFF REQNONormalThe [facility] HospitalComment on above: Performed By: #### CVDTBH #### [facility] [address] [address] [address] Sruthi Brink (RBC) [Entitic mass]26.5 pgCritically low26.7-34.0The [facility] HospitalComment on above:Performed By: #### CVDTBH #### [facility] [address] [place] [address] Dr. Sruthi Torres (RBC) [Mass/Vol]31.3 g/xJIzrjsy57.9-35.2The [facility] HospitalComment on above:Performed By: #### CVDTBH #### [facility] [address] [place] [address] Dr. Sruthi Torres (RBC) [Entitic vol]84.9 nGTlbcgt30.0-99.0The [facility] HospitalComment on above:Performed By: #### CVDTBH #### [facility] [address] [place] [address] Dr. Sruthi Valladares #1.1 103/ulCritically high0.3-0.8The [facility] Comment on above:Performed By: #### MARGITBH #### [facility] [address] [place] [address] Dr. Sruthi Alegriaocytes/100 WBC (Bld)11.7 %Normal1.7-12.0[facility] Comment on above:Performed By: #### CVDTBH #### [facility] [address] [place] [address] Dr. Sruthi Carl #5.8 103/ulNormal1.4-6.5The [facility] HospitalComment on above:Performed By: #### CVDTBH #### [facility] [address] [place] [address] Dr. Sruthi Allanophils/100 WBC (Bld)60.5 %Ohajni54.0-75.0The [facility] HospitalComment on above:Performed By: #### CVDTBH #### [facility] [address] [place] [address] Dr. Sruthi Jaimelet mean volume (Bld) [Entitic vol]11.8 fLNormal9.5-13.5The [facility] HospitalComment on above:Performed By: #### CVDTBH #### [facility] [address] [address] [address] Sruthi ArechigaPLT198 103/bkFwkzmk697-611Btc [facility] HospitalComment on above: Performed By: #### CVDTBH #### [facility] [address] [address] [address] Sruthi ArechigaRBC3.77 106/ulCritically low4.20-5.40The [facility] HospitalComment on above:Performed By: #### CVDTBH #### [facility] [address] [address] [address] Sruthi ArechigaWBC9.7 103/ulNormal4.0-11.0The [facility] HospitalCom[facility] on above: Performed By: #### CVDTBH #### [facility] [address] [place] [address] Dr. Sruthi Tobin URINEon 31-65-3753HAAQXVM URINEIsolate 1 Klebsiella pneumoniae >100,000 cfu/mL of [...] <=16 S F Trimethoprim/Sulfamethoxazole <=[address] S [address]Normal[address] [facility] HospitalComment on above:Performed By: #### URCX ####[facility] [address] [address]Dr. Sruthi Alvarenga AND TIBCon 07-06-2022% SATURATION 9.3 %NormalThe [facility] HospitalCom[facility] hospital on above:Performed By: #### FETIBC, B12FOL ####[facility] [address]oxsepny[address] [address]Dr. Sruthi Alvarenga [Mass/Vol]33.0 ug/dLCritically low50.0-170.0The [facility] HospitalComment on above:Performed By: #### FETIBC, B12FOL ####[facility] [address] [address]Dr. Sruthi ArechigaTIBC HFKTBM035.0 ug/iLWxsfpt969.0-450.0The [facility] HospitalComment on above: Performed By: #### FETIBC, B12FOL ####[facility] [address]aioefe[address] [address]Dr. Sruthi Gray BLD IMMUNO SCREENon 07-06-2022 OCCULT BLOODNegativeNormalNEGATIVEThe [facility] HospitalComment on above: Performed By: #### OBSCRN #### [facility] [address] [place] [address] Dr. Sruthi ArechigaPOINT OF CARE GLUCOSEon 02-41-2581Rvzaypk [Mass/Vol]203 mg/dL Critically yvxb44-546YbiHolzer Health SystemComment on above:Performed By: #### CBC #### [facility] [address] [address] [address] Sruthi ArechigaGlucose [Mass/Vol]299 mg/dLCritically myln62-406Vly [facility] HospitalComment on above:Performed By: #### CVDTBH #### [facility] [address] [address] [address] Sruthi ArechigaGlucose [Mass/Vol]412 mg/dLCritically pnet70-043YzsHolzer Health SystemComment on above:Performed By: #### CBC #### [facility] [address] [address] [address] Sruthi ArechigaPROF CHEM 8 (BAS METB)on 31-51-6876Qbskd gap [Moles/Vol]11.0 mmol/LNormalThe [facility] HospitalComment on above:Performed By: #### BMP ####[facility] Txiolpuonf[address] [place], [place] [address]Dr. Sruthi ArechigaCalcium [Mass/Vol]9.0 mg/dLNormal8.5-10.1The [facility] HospitalComment on above:Performed By: #### BMP ####[facility] Sanvumahox[address] [place], [place] [address]Dr.Yilan ChangChloride [Moles/Vol]100 mmol/LNormal 98-107The [facility] HospitalComment on above:Performed By: #### BMP ####[facility] Mwqarlwuhv[address] [place], [place] [address]Dr.Yilan ChangCO2 [Moles/Vol]28.5 mmol/WPchopq98.0-32.0The [facility] HospitalComment on above: Performed By: #### BMP ####[facility] [address]ndljtim97[address] [place], [place] [address]Dr.Yilan ChangCreatinine [Mass/Vol]0.98 mg/dLNormal 0.55-1.02The [facility] HospitalComment on above:Performed By: #### BMP ####[facility] Chxipwgphb350[address] [place], [place] [address]Dr. Yilan ChangEGFR-AF CYMRAES>60Normal>=60The [facility] HospitalComment on above: Performed By: #### BMP ####[facility] Zjhqwrlbkv[address] [place], [place] [address]Dr.Yilan ChangEGFR-NON AF WMMGCEYO66 mL/min/1.73m2 Critically low>=60The [facility] HospitalComment on above:Performed By: #### BMP ####[facility] Jybafrqido[address] [place], [place] [address]Dr. Yilan ChangGlucose [Mass/Vol]139 mg/dLCritically xnng25-708Trq [facility] Comment on above:Performed By: #### BMP ####[facility] [address]fnawiwvds[address] [place], [place] [address]Dr.Yilan ChangPotassium [Moles/Vol]4.5 mmol/LNormal3.5-5.1The [facility] HospitalComment on above:Performed By: #### BMP ####[facility] Bbvcnipzsg[address] [place], [place] [address]Dr. Yilan ChangSodium [Moles/Vol]135 mmol/LCritically wbo056-976Mrn [facility] HospitalComment on above:Performed By: #### BMP ####[facility] [address]yp[address] [address]Dr.Sruthi ArechigaUrea nitrogen [Mass/Vol]25.0 mg/dLCritically high7.0-18.0The [facility] HospitalComment on above:Performed By: #### BMP ####[facility] Anpgmpqcqn[address] [address]Dr.Sruthi ChangUrea nitrogen/Creatinine [Mass ratio] 25.5 mg/mgNoUniversity Hospitals Beachwood Medical CenterComment on above:Performed By: #### BMP ####[facility] Facuomqkpr[address] [address]Dr. Sruthi ArechigaVIT B12 AND FOLATEon 61-16-3184Kimgidagq (Vitamin B12) [Mass/Vol] 653.0 pg/oPAelzio558.0-986.0The [facility] HospitalComment on above:Performed By: #### FETIBC, B12FOL ####[facility] [address]wbbsxoen[address] [address]Dr. Sruthi ArechigaXggvgXFTDFJ17.90 ng/mLNormal8.60-58.90The [facility] Hospitalment on above:Performed By: #### FETIBC, B12FOL ####[facility] Eg[address]wsrlsq[address] [address]Dr. Sruthi ArechigaXR CHEST 2 Von 98-89-9814JO CHEST 2 VEXAM: XR CHEST 2 V [...] Electronically authenticated by: GORDON VALENZUELA Date: 2022-07-06 08:43[facility] AUTO DIFFon [id number] #0.0 103/ulNormal0.0-0.1The [facility] HospitalComment on above:Performed By: #### CBC ####[facility] Qsbiqaunxg279[address] [place], [place] [address]Dr.Sruthi ChangBasophils/100 WBC (Bld)0.4 %Normal0.2-2.0The [facility] HospitalComment on above:Performed By: #### CBC ####[facility] Tljzdvlxce69[address] [place], [place] [address]Dr.Yilan ChangEO #0.2 103/ulNormal0.0-0.7The [facility] HospitalComment on above:Performed By: #### CBC ####[facility] Qxifhwqqfh6[address] [place], [place] [address]Dr.Kamalalan ChangEosinophils/100 WBC (Bld)2.6 %Normal 0.9-7.0The [facility] HospitalComment on above:Performed By: #### CBC ####[facility] Ssoobsxfsh4[address] [place], [place] [address]Dr.Sruthi Arechiga Erythrocyte distribution width (RBC) [Ratio]13.3 %Dksnki00.0-15.0The [facility] HospitalComment on above:Performed By: #### CBC ####[facility] Sefydkzoov[address] [place], [place] [address]Dr.Sruthi ChangHematocrit (Bld) [Volume fraction]31.3 %Critically low36.0-48.0The [facility] HospitalComment on above:Performed By: #### CBC ####[facility] Cpaghgczxo[address] [place], [place] [address]Dr.Sruthi ChangHemoglobin (Bld) [Mass/Vol]9.9 g/dL Critically low12.0-16.0The [facility] HospitalComment on above:Performed By: #### CBC ####[facility] Qvxdzrzdmh4[address] [place], [place] [address]Dr. Sruthi ChangIG #0.07 10e3/ulCritically high0.00-0.03The [facility] HospitalComment on above:Performed By: #### CBC ####[facility] Estcybsmpj[address] [place], [place] [address]Dr.Yilan ChangIG %0.8 %Critically high0.0-0.5The [facility] HospitalComment on above:Performed By: #### CBC ####[facility] Qksunfoxph754[address] [place], [place] [address]Dr.Kamalasven [facility] #2.1 103/ulNormal1.2-3.8The [facility] HospitalComment on above:Performed By: #### CBC ####[facility] Ewurfddgzi85[address] [place], [place] [address]Dr. Kamalasven Calihocytes/100 WBC (Bld)22.5 %Xgxaja91.5-60.0The [facility] Comment on above:Performed By: #### CBC ####[facility] Akeuqlcvzt[address] [place], [place] [address]Dr.Sruthi ArechigaMANUAL DIFF REQNONormalThe [facility] HospitalComment on above:Performed By: #### CBC ####[facility] [address] [place], [place] [address]Dr.Sruthi ArechigaNYC HEALTH + HOSPITALS (RBC) [Entitic mass]27.0 dgNsvdlq55.7-34.0The [facility] HospitalComment on above: Performed By: #### CBC ####[facility] Plnfpcmgmb[address] [place], [place] [address]Dr.Kamalasven ArechigaBURKE REH[facility] (RBC) [Mass/Vol]31.6 g/dLNormal 29.9-35.2[facility] SystemComment on above:Performed By: #### CBC ####[facility] Bgnasfulwl[address] [place], [place] [address]Dr. Sruthi ArechigaV (RBC) [Entitic vol]85.3 fDMsqyot57.0-99.0The [facility] Comment on above:Performed By: #### CBC ####[facility] Rwurdhnqqy[address] [place], [place] [address]DrJaswinder AlegriaO #1.2 103/ulCritically high0.3-0.8The [facility] HospitalComment on above:Performed By: #### CBC ####[facility] Pqcknozveu[address] [place], [place] [address]Dr. Sruthi ChangMonocytes/100 WBC (Bld)12.9 %Critically high1.7-12.0The [facility] HospitalComment on above:Performed By: #### CBC ####[facility] [address] [place] [address]Dr.Sruthi ChangNEUT #5.7 103/ulNormal1.4-6.5The [facility] HospitalComment on above:Performed By: #### CBC ####[facility] Buzhbvschn[address] [place] [address]Dr. Kamalalan ChangNeutrophils/100 WBC (Bld)60.8 %Cpjcma14.0-75.0The [facility] Comment on above:Performed By: #### CBC ####[facility] Gpsxozsogu[address] [place] [address]Dr.Sruthi ChangPlatelet mean volume (Bld) [Entitic vol]11.2 fLNormal9.5-13.5The [facility] HospitalComment on above: Performed By: #### CBC ####[facility] Sinpwrvhaq[address] [place] [address]Dr.Yilan FphstUAU229 103/dsLlfntk001-839Eyq [facility] HospitalComment on above:Performed By: #### CBC ####[facility] K[address] [place], [place] [address]Dr.Sruthi ChangRBC3.67 106/ul Critically low4.20-5.40The [facility] HospitalComment on above:Performed By: #### CBC ####[facility] Xwvpdadowf[address] [place] [address]Dr. Kamalalan ChangWBC9.3 103/ulNormal4.0-11.0The [facility] HospitalComment on above: Performed By: #### CBC ####[facility] Aqlscdpysa[address] [place], [place] [address]Dr.Sruthi ChangDORMINY [facility] GLUCOSEon 07-05-2022 Glucose [Mass/Vol]164 mg/dLCritically bxin54-477Krk [facility] HospitalComment on above:Performed By: #### CVDTBH #### [facility] Laboratory [address] [place], [place] [address] Dr. Sruthi ArechigaGlucose [Mass/Vol]303 mg/dLCritically bqft04-528Sdx [facility] HospitalComment on above:Performed By: #### POCGLUC #### [facility] [address] [place] [address] [address] Sruthi ArechigaGlucose [Mass/Vol]278 mg/dLCritically utdv63-483Yqk [facility] HospitalComment on above:Performed By: #### CVDTBH #### [facility] [address] [place] [address] [address] Sruthi ArechigaPROF CHEM 8 (BAS METB)on 58-02-6464Ibmro gap [Moles/Vol]9.9 mmol/LNormalThe [facility] HospitalComment on above:Performed By: #### BMP ####[facility] Vlaoixthei[address] [place] [address]Dr. Sruthi ChangCalcium [Mass/Vol]8.7 mg/dLNormal8.5-10.1The [facility] HospitalComment on above:Performed By: #### BMP ####[facility] Shsuubczhb[address] [place] [address]Dr.Sruthi ChangChloride [Moles/Vol]100 mmol/LNormal 98-107The [facility] HospitalComment on above:Performed By: #### BMP ####[facility] Siacrtpsge[address] [place] [address]DrJaswinder ChangCO2 [Moles/Vol]28.4 mmol/TZzvqoz86.0-32.0The [facility] HospitalComment on above: Performed By: #### BMP ####[facility] Kpvsaxenfw[address] [place] [address]Dr.Sruthi ChangCreatinine [Mass/Vol]0.99 mg/dLNormal 0.55-1.02The [facility] HospitalComment on above:Performed By: #### BMP ####[facility] Sejtsaxedu[address] [place] [address]Dr. Sruthi ChangEGFR-AF CYMRAES>60Normal>=60The [facility] HospitalComment on above: Performed By: #### BMP ####[facility] Kkyynvqacs[address] [place] [address]Dr.Sruthi ChangEGFR-NON AF GWLOMQAA58 mL/min/1.73m2 Critically low>=60The [facility] HospitalComment on above:Performed By: #### BMP ####[facility] Tgwelufand[address] [place] [address]Dr. Sruthi ChangGlucose [Mass/Vol]174 mg/dLCritically yere02-674Gim [facility] Comment on above:Performed By: #### BMP ####[facility] Wkogqwruvx80[address] [place] [address]Dr.Sruthi ChangPotassium [Moles/Vol]4.3 mmol/LNormal3.5-5.1The [facility] HospitalComment on above:Performed By: #### BMP ####[facility] Labaovoquk[address] [place] [address]Dr. Sruthi ChangSodium [Moles/Vol]134 mmol/LCritically osc510-793Iyv [facility] HospitalComment on above:Performed By: #### BMP ####[facility] Eyfonwvbnc[address] [place] [address]Dr.Sruthi ChangUrea nitrogen [Mass/Vol]22.0 mg/dLCritically high7.0-18.0The [facility] HospitalComment on above:Performed By: #### BMP ####[facility] [address]sczusfj[address] [place] [address]Dr.Sruthi ChangUrea nitrogen/Creatinine [Mass ratio] 22.2 mg/mgNormalThe [facility] HospitalComment on above:Performed By: #### BMP ####[facility] Wvjyinuwor[address] [place] [address]Dr. Sruthi Sarmiento 49-24-0038Ouolpeipnts peptide B (Bld) [Mass/Vol]1822.0 pg/mL Critically high<=900.0The [facility] HospitalComment on above:Performed By: #### CBC #### [facility] [address] [place] [address] [address] Sruthi Fisher AUTO DIFFon 00-57-9280CEVN #0.0 103/ulNormal0.0-0.1The [facility] HospitalComment on above:Performed By: #### CBC #### [facility] [address] [place] [address] [address] Sruthi ArechigaBasophils/100 WBC (Bld)0.4 %Normal0.2-2.0[facility] Comment on above:Performed By: #### CBC #### [facility] [address] [place] [address] [address] Sruthi Shields #0.2 103/ulNormal0.0-0.7The [facility] HospitalComment on above: Performed By: #### CBC #### [facility] [address] [place] [address] Dr. Sruthi Joyosinophils/100 WBC (Bld)2.4 %Normal0.9-7.0[facility] Comment on above:Performed By: #### CBC #### [facility] [address] [place] [address] Dr. Sruthi Joyrythrocyte distribution width (RBC) [Ratio]13.5 %Imdlyd30.0-15.[address] [facility] HospitalComment on above:Performed By: #### CBC #### [facility] [address] [place] [address] Dr. Sruthi ArechigaHematocrit (Bld) [Volume fraction]36.4 %Alsizh09.0-48.0The [facility] HospitalComment on above:Performed By: #### CBC #### [facility] [address] [place] [address] Dr. Sruthi ArechigaHemoglobin (Bld) [Mass/Vol]11.6 g/dLCritically low12.0-16.0The [facility] HospitalComment on above:Performed By: #### CBC #### [facility] [address] [place] [address] Dr. Sruthi Conklin #0.11 10e3/ulCritically high0.00-0.03The [facility] Comment on above:Performed By: #### CBC #### [facility] [address] [place] [address] [address] Sruthi Conklin %1.2 %Critically high0.0-0.5The [facility] HospitalComment on above:Performed By: #### CBC #### [facility] [address] [place] [address] [address] Sruthi Serrano #1.7 103/ulNormal1.2-3.8The [facility] HospitalComment on above:Performed By: #### CBC #### [facility] [address] [place] [address] [address] Sruthi Calihocytes/100 WBC (Bld)19.0 %Critically low20.5-60.0The [facility] HospitalComment on above:Performed By: #### CBC #### [facility] [address] [place] [address] Dr. Sruthi ToscanoUAL DIFF REQNONormalThe [facility] HospitalComment on above: Performed By: #### CBC #### [facility] [address] [place] [address] [address] Sruthi Torres (RBC) [Entitic mass]27.3 mcOwaigf02.7-34.0The [facility] HospitalComment on above:Performed By: #### CBC #### [facility] [address] [place] [address] Dr. Sruthi Torres (RBC) [Mass/Vol]31.9 g/eSYvhorn53.9-35.2The [facility] HospitalComment on above:Performed By: #### CBC #### [facility] [address] [place] [address] Dr. Sruthi Torres (RBC) [Entitic vol]85.6 gKCyyimm00.0-99.0The [facility] HospitalComment on above:Performed By: #### CBC #### [facility] [address] [place] [address] Dr. Sruthi Valladares #1.1 103/ulCritically high0.3-0.8The [facility] Comment on above:Performed By: #### CBC #### [facility] [address] [place] [address] Dr. Sruthi Alegriaocytes/100 WBC (Bld)11.9 %Normal1.7-12.0The [facility] Comment on above:Performed By: #### CBC #### [facility] [address] [place] [address] Dr. Sruthi GomezUT #6.0 103/ulNormal1.4-6.5The [facility] HospitalComment on above:Performed By: #### CBC #### [facility] [address] [place] [address] Dr. Sruthi Gomezutrophils/100 WBC (Bld)65.1 %Djgzue93.0-75.0The [facility] HospitalComment on above:Performed By: #### CBC #### [facility] [address] [place] [address] Dr. Sruthi Jaimelet mean volume (Bld) [Entitic vol]10.7 fLNormal9.5-13.5The [facility] HospitalComment on above:Performed By: #### CBC #### [facility] [address] [place] [address] Dr. Sruthi ArechigaPLT264 103/ivSbvdse669-140Qzt [facility] HospitalComment on above: Performed By: #### CBC #### [facility] [address] [place] [address] Dr. Sruthi ArechigaRBC4.25 106/ulNormal4.20-5.40The [facility] Hospitalment on above:Performed By: #### CBC #### [facility] [address] [place] [address] Dr. Sruthi ArechigaWBC9.2 103/ulNormal4.0-11.0The [facility] Hospitalment on above: Performed By: #### CBC #### [facility] [address] [place] [address] Dr. Sruthi ArechigaCovid-19 PCR (CVDTBH)on 97-06-2314HTJX-CoV-2 (COVID-19) RNA KOLE+probe Ql (Unsp spec)Not detectedNormalNOT DETECTEDHolzer Health System Comment on above:Result Comment: When diagnostic testing [...] for this test is supported by the Staffing Analyst of Health and Human Service's declaration that [...] no longer be used).Performed By: #### CVDTBH ####[facility] [address] [place] [address]Dr. Sruthi Rodriguez URINE PROFILEon 87-78-6343Aiihmzajf Ql (U)NegativeNormal NEGATIVEHolzer Health SystemComment on above:Performed By: #### CVDTBH #### [facility] [address] [place] [address] Dr. Sruthi Varela (U)CLEARNormalCLEARHolzer Health SystemComment on above: Performed By: #### CVDTBH #### [facility] [address] [place] [address] Dr. Sruthi Tran (U)LT. YELLOWNormalYELLOWHolzer Health SystemComment on above:Performed By: #### CVDTBH #### [facility] [address] [place] [address] Dr. Sruthi Hidalgo micrscopic examination will be performed if indicated. NormalThe [facility] HospitalComment on above:Performed By: #### CVDTBH #### [facility] [address] [place] [address] Dr. Sruthi Leyvaose Ql (U)>1000AbnormalNEGATIVEHolzer Health SystemComment on above:Performed By: #### CVDTBH #### [facility] [address] [place] [address] [address] Sruthi ArecihgaHemoglobin Ql (U)NegativeNormalNEGMetroHealth Parma Medical Center Comment on above:Performed By: #### CVDTBH #### [facility] [address] [place] [address] [address] Sruthi ArechigaKetones Ql (U)NegativeNormalNEGATIVEHolzer Health SystemComment on above:Performed By: #### CVDTBH #### [facility] [address] [place] [address] [address] Sruthi ArechigaLEUKOCYTESSMALLAbnormalNEGATIVEHolzer Health SystemComment on above:Performed By: #### CVDTBH #### [facility] [address] [place] [address] Dr. Sruthi ArechigaNitrite Ql (U)NegativeNormalNEGATIVEHolzer Health SystemComment on above:Performed By: #### CVDTBH #### [facility] [address] [place] [address] Dr. Sruthi AerchigapH (U)6.0 [pH]Normal5-9[facility] SystemComment on above: Performed By: #### CVDTBH #### [facility] [address] [place] [address] Dr. Sruthi ArechigaSPEC GRAVITY<=1.061Vldcjjkj4.005-<=1.025[facility] Comment on above:Performed By: #### CVDTBH #### [facility] [address] [place] [address] Dr. Sruthi Whitehead PROTEINNegativeNormalNEGATIVE/ TRACEHolzer Health System Comment on above:Performed By: #### CVDTBH #### [facility] [address] [place] [address] Dr. Sruthi Adamson MICRO INDINDICATEDNoalThSelect Medical Cleveland Clinic Rehabilitation Hospital, BeachwoodComment on above: Performed By: #### CVDTBH #### [facility] [address] [place] [address] Dr. Yilan ChangUrobilinogen Qn (U)0.2 {Willow'U}/dLNormal0.2 - 1.0The [facility] HospitalComment on above:Performed By: #### CVDTBH #### [facility] [address] [place] [address] [address] Sruthi ArechigaPOINT OF CARE GLUCOSEon 88-49-5923Nfrsxss [Mass/Vol]262 mg/dL Critically yskk05-824Xju [facility] HospitalComment on above:Performed By: #### POCGLUC ####[facility] [address]eekj[address] [place] [address]Dr. Sruthi ArechigaPROF CHEM 8 (BAS METB)on 13-55-0086Uxxat gap [Moles/Vol]13.0 mmol/LNormalThe [facility] HospitalComment on above:Performed By: #### CBC #### [facility] [address] [place] [address] [address] Sruthi ArechigaCalcium [Mass/Vol]9.3 mg/dLNormal8.5-10.1The [facility] Comment on above:Performed By: #### CBC #### [facility] [address] [place] [address] [address] Sruthi ArechigaChloride [Moles/Vol]99 mmol/RBwhuxb86-516Hyj [facility] Comment on above:Performed By: #### CBC #### [facility] [address] [place] [address] [address] Sruthi ArechigaCO2 [Moles/Vol]26.3 mmol/AVrqkkk04.0-32.0The [facility] Comment on above:Performed By: #### CBC #### [facility] [address] [place] [address] [address] Sruthi ArechigaCreatinine [Mass/Vol]0.95 mg/dLNormal0.55-1.02The [facility] HospitalComment on above:Performed By: #### CBC #### [facility] [address] [place] [address] [address] Negro ChangEGFR-AF CYMRAES>60Normal>=60The [facility] HospitalComment on above:Performed By: #### CBC #### [facility] [address] [place] [address] [address] Sruthi JoyGFR-NON AF JEHVHPLK97 mL/min/1.91a5Ndvvjfblwe low>=60The [facility] on above:Performed By: #### CBC #### [facility] [address] [place] [address] [address] Sruthi ArechigaGlucose [Mass/Vol]331 mg/dLCritically wbzf93-556Kez [facility] on above:Performed By: #### CBC #### [facility] [address] [place] [address] [address] Sruthi ArechigaPotassium [Moles/Vol]4.3 mmol/LNormal3.5-5.1The [facility] Comment on above:Performed By: #### CBC #### [facility] [address] [place] [address] [address] Sruthi ArechigaSodium [Moles/Vol]134 mmol/LCritically lvn185-314Ale [facility] on above:Performed By: #### CBC #### [facility] [address] [place] [address] [address] Sruthi ArechigaUrea nitrogen [Mass/Vol]20.0 mg/dLCritically high7.0-18.0The [facility] on above:Performed By: #### CBC #### [facility] [address] [place] [address] [address] Sruthi ArechigaUrea nitrogen/Creatinine [Mass ratio]21.1 mg/mgNormalThe [facility] HospitalComment on above:Performed By: #### CBC #### [facility] [address] [place] [address] [address] Sruthi Tucker, HIGH SENSITIVITYon 17-54-5754ZGYIZF815.1 pg/mL Critically high4.0-51.3The [facility] on above:Result Comment: CUT-OFF POINTS HAVE BEEN ESTABLISHED BASED ON THE FOURTH UNIVERSAL DEFINITIONS OF MYOCARDIAL INFARCTION. THE UPPER REFERENCE LIMIT (URL) OF TROPONIN, DEFINED THE 99TH PERCENTILE OF cTnI DISTRIBUTION IN A REFERENCE POPULATION, HAS BEEN CONFIRMED THE DECISION THRESHOLD FOR SD DIAGNOSIS.Performed By: #### CBC #### [facility] [address] [place] [address] Dr. Sruthi Garrido126.6 pg/mLCritically high4.0-51.3The [facility] Comment on above:Result Comment: CUT-OFF POINTS HAVE BEEN ESTABLISHED BASED ON THE FOURTH UNIVERSAL DEFINITIONS OF MYOCARDIAL INFARCTION. THE UPPER REFERENCE LIMIT (URL) OF TROPONIN, DEFINED THE 99TH PERCENTILE OF cTnI DISTRIBUTION IN A REFERENCE POPULATION, HAS BEEN CONFIRMED THE DECISION THRESHOLD FOR SD DIAGNOSIS.Performed By: #### CVDTBH #### [facility] [address] [place] [address] Dr. Sruthi Antunez 70-47-2889REOFROISQBKLTEazwupaeUJZJ SEEN [facility] SystemCom[facility] on above:Performed By: #### CVDTBH #### [facility] [address] [place] [address] Dr. Sruthi Walls identified Cx Nom (U)INDICATEDAkron Children's HospitalComment on above:Performed By: #### CVDTBH #### [facility] [address] [place] [address] Dr. Sruthi Olmos SEENNormalNONE SEENHolzer Health SystemComascension standish hospital on above:Performed By: #### CVDTBH #### [facility] [address] [place] [address] Dr. Sruthi Brown LM Nom (Urine sed)NONE SEENNormalNONE SEENHolzer Health SystemComascension standish hospital on above:Performed By: #### CVDTBH #### [facility] [address] [place] [address] Dr. Negro ChangEpithelial cells LM Ql (Urine sed)FEWAbnormalNONE SEEN /RAREThe [facility] HospitalComascension standish hospital on above:Performed By: #### CVDTBH #### [facility] [address] [place] [address] Dr. Sruthi Jernigan SEENNocaromont regional medical centerNONE SEENCleveland Clinic [facility] on above:Performed By: #### CVDTBH #### [facility] [address] [place] [address] [address] Sruthi ArechigaRBCNJEAN SEENAbnormal0-2The [facility] HospitalComment on above: Performed By: #### CVDTBH #### [facility] [address] [place] [address] [address] Sruthi ArechigaKuxeoSKJ16-17VarsdpcuQMRW SEENThe [facility] HospitalComment on above: Performed By: #### CVDTBH #### [facility] [address] [place] [address] Dr. Sruthi ArechigaXR CHEST 1 Von [id number] CHEST 1 VEXAMINATION: XR CHEST 1 V [...] Electronically authenticated by: GERMAIN COY Date: 2022-07-04 11:53[facility] COMPLETE BLOOD COUNTon 47-34-5717Gfeftlamvkh distribution width (RBC) [Ratio]13.4 %Mgotnq92.5-15.0The [facility] Comment on above:Order Comment: No: Do not add to previous drawPerformed By: #### [id number] #### [facility] [address] [place] [address], USAHematocrit (Bld) [Volume fraction]33.6 %Low36.0-45.0The [facility] - AkronComment on above:Order Comment: No: Do not add to previous drawPerformed By: #### [id number] #### [facility] [address] [place] [address], USAHemoglobin (Bld) [Mass/Vol]10.6 g/dLLow12.0-15.0The [facility] - AkronComment on above:Order Comment: No: Do not add to previous drawPerformed By: #### [id number] #### [facility] [address] [place] [address], [facility] (RBC) [Entitic mass]26.6 pgLow27.0-33.0The [facility] - AkronComment on above:Order Comment: No: Do not add to previous drawPerformed By: #### [id number] #### [facility] [address] [place] [address], [facility] (RBC) [Mass/Vol]31.5 g/dLLow32.0-35.0The [facility] AkronComment on above:Order Comment: No: Do not add to previous drawPerformed By: #### [id number] #### [facility] [address] [place] [address], [facility] (RBC) [Entitic vol]84.4 qOLpbffl78.0-98.0The [facility] AkronComment on above:Order Comment: No: Do not add to previous drawPerformed By: #### [id number] #### [facility] [address] [place] [address], USANucleated RBC/100 WBC (Bld) [Ratio]0 %Normal0-0The [facility] - AkronComment on above:Order Comment: No: Do not add to previous drawPerformed By: #### [id number] #### [facility] [address] [place] [address], [place] [id number] 10*3/cWWqtoaq435-337Vvk [facility] AkronComment on above:Order Comment: No: Do not add to previous draw Performed By: #### [id number] #### [facility] [address] [place] [address], [facility] HEALTH CENTERRBC (Bld) [#/Vol]3.98 10*6/uLNormal3.80-5.00The [facility] AkronComment on above:Order Comment: No: Do not add to previous drawPerformed By: #### [id number] #### [facility] [address] [place] [address], USAWBC (Bld) [#/Vol]10.25 10*3/uLNormal4.00-10.60The [facility] - AkronComment on above:Order Comment: No: Do not add to previous drawPerformed By: #### [id number] #### [facility] [address] [place] [address], USAPOC GLUCOSE LABon [id number] [Mass/Vol]204 mg/dLHigh 70-100The [facility] AkronComment on above:Performed By: #### 83501, 66700, 89741 #### [facility] [address] [place] [address], USAGlucose [Mass/Vol]135 mg/vESshx55-007Suj [facility] AkronComment on above:Performed By: #### 07228 #### [facility] [address] [facility] [address], USAUFH HEPARIN ASSAYon [id number] HEPARIN<0.10 Critically low0.30-0.70The [facility] - AkronComment on above: Result Comment: Result checked and called. Accurately read back by Chanda @0737 Rivaroxaban and Apixaban will interfere with the anti Xa assay used to monitor UFH and LMWH.Performed By: #### [id number] #### [facility] [address] [address], USABASIC METABOLIC PANELon [id number] [Mass/Vol]8.8 mg/dLNormal8.6-10.3The [facility] - AkronComment on above:Order Comment: No: Do not add to previous drawPerformed By: #### 02666 #### [facility] [address] [place] [address], USAChloride [Moles/Vol]104 mmol/LCkhiag04-713Rlb [facility] AkronComment on above:Order Comment: No: Do not add to previous drawPerformed By: #### 70493 #### [facility] [address] [place] [address], USACO2 [Moles/Vol]26 mmol/BIjshze19-12Csw [facility] AkronComment on above:Order Comment: No: Do not add to previous draw Performed By: #### 14991 #### [facility] [address] [place] [address], USACreatinine [Mass/Vol]0.62 mg/dLNormal0.60-1.20The [facility] - AkronComment on above:Order Comment: No: Do not add to previous drawPerformed By: #### [id number] #### [facility] [address] [place] [address], USAGFR/1.73 sq M.predicted among non-blacks MDRD (S/P/Bld) [Vol rate/Area]mL/min/{1.73_m2}Normal>60The [facility] Comment on above:Order Comment: No: Do not add to previous drawResult Comment: The [facility]'s estimated glomerular filtration rate (eGFR) will no [...] any one group of individuals.Performed By: #### 50632 #### [facility] [address] [place] [address], USAGlucose [Mass/Vol]212 mg/pFEeps36-987Xwe [facility] AkronComment on above:Order Comment: No: Do not add to previous drawPerformed By: #### 56583 #### [facility] [address] [place] [id number], USAPotassium [Moles/Vol]3.8 mmol/LNormal3.5-5.1The [facility] AkronComment on above:Order Comment: No: Do not add to previous drawPerformed By: #### 48243 #### [facility] [address] [place] [address], USASodium [Moles/Vol]134 mmol/WVym493-237Djk [facility] AkronComment on above:Order Comment: No: Do not add to previous drawPerformed By: #### 11815 #### [facility] [address] [place] [address], USAUrea nitrogen [Mass/Vol]15 mg/dLNormal7-25The [facility] AkronComment on above:Order Comment: No: Do not add to previous drawPerformed By: #### 76866 #### [facility] [address] [facility] [place] [address], [facility]PRE[facility] HEALTH CENTERCBC W/DIFFon [id number] IMM GRANS0.1 10*3/uLNormal 0.0-0.2The [facility] AkronComment on above:Order Comment: No: Do not add to previous drawPerformed By: #### 45799 #### [facility] [address]. [place] [id number], USAABS NEUTROPHILS6.3 10*3/uLNormal1.6-7.6The [facility] AkronComment on above:Order Comment: No: Do not add to previous drawPerformed By: #### 20418 #### [facility] [address] [place] [address], USABasophils (Bld) [#/Vol]0.0 10*3/uLNormal0.0-0.2The [facility] AkronComment on above:Order Comment: No: Do not add to previous drawPerformed By: #### 11986 #### [facility] [address] [place] [address], USABasophils/100 WBC (Bld)0.3 %Normal0.0-1.0The [facility] - AkronComment on above:Order Comment: No: Do not add to previous drawPerformed By: #### 73452 #### [facility] [address] [address], USAEosinophils (Bld) [#/Vol]0.2 10*3/uLNormal0.0-0.5The [facility] AkronComment on above:Order Comment: No: Do not add to previous drawPerformed By: #### [id number] #### [facility] [address] [place] [address], USAEosinophils/100 WBC (Bld)2.3 %Normal0.0-6.0The [facility] AkronComment on above:Order Comment: No: Do not add to previous drawPerformed By: #### 03345 #### [facility] [address] [facility] [place] [address], USAErythrocyte distribution width (RBC) [Ratio]13.5 %Normal 11.5-15.0The [facility] AkronComment on above:Order Comment: No: Do not add to previous drawPerformed By: #### 79151 #### [facility] [address] [facility] [place] [address], USAHematocrit (Bld) [Volume fraction]31.3 %Low36.0-45.0The [facility] AkronComment on above:Order Comment: No: Do not add to previous drawPerformed By: #### 12349 #### [facility] [address] [facility] [place] [address], USAHemoglobin (Bld) [Mass/Vol]10.2 g/dLLow12.0-15.0The [facility] AkronComment on above:Order Comment: No: Do not add to previous drawPerformed By: #### 87750 #### [facility] [address] [place] [address], USAIMMATURE GRANS0.8 %Normal0.0-1.0The [facility] AkronComment on above:Order Comment: No: Do not add to previous draw Performed By: #### 41397 #### [facility] [address] [place] [address], USALymphocytes (Bld) [#/Vol]1.9 10*3/uLNormal1.2-4.0The [facility] AkronComment on above:Order Comment: No: Do not add to previous drawPerformed By: #### 24299 #### [facility] [address] [place] [address], USALymphocytes/100 WBC (Bld)19.4 %Low20.0-45.0The [facility] AkronComment on above:Order Comment: No: Do not add to previous drawPerformed By: #### 77050 #### [facility] [address] [place] [address], [facility] (RBC) [Entitic mass]27.5 yoXwfxss74.0-33.0The [facility] AkronComment on above:Order Comment: No: Do not add to previous drawPerformed By: #### 27017 #### [facility] [address] [place] [address], [facility] (RBC) [Mass/Vol]32.6 g/cQIjrpab71.0-35.0The [facility] AkronComment on above:Order Comment: No: Do not add to previous drawPerformed By: #### 37551 #### [facility] [address] [place] [address], USAMCV (RBC) [Entitic vol]84.4 wLYglwpz52.0-98.0The [facility] AkronComment on above:Order Comment: No: Do not add to previous drawPerformed By: #### 61293 #### [facility] [address] [place] [address], USAMonocytes (Bld) [#/Vol]1.3 10*3/uLHigh0.1-1.0The [facility] AkronComment on above:Order Comment: No: Do not add to previous drawPerformed By: #### 90292 #### [facility] [address] [place] [address], FEJUUSYU67.1 %High5.0-12.0The [facility] AkronComment on above:Order Comment: No: Do not add to previous drawPerformed By: #### 69921 #### [facility] [address] [place] [address], USANeutrophils/100 WBC (Bld)64.1 %Ociwvv57.0-72.0The [facility] AkronComment on above:Order Comment: No: Do not add to previous drawPerformed By: #### 29281 #### [facility] [address] [place] [address], USANucleated RBC/100 WBC (Bld) [Ratio]0 %Normal0-0The [facility] AkronComment on above:Order Comment: No: Do not add to previous drawPerformed By: #### 69189 #### [facility] [address] [place] [address], USAPLAT [id number] 10*3/xYLwexte302-594Myk [facility] AkronComment on above:Order Comment: No: Do not add to previous draw Performed By: #### 51787 #### [facility] [address] [facility] [place] [address], USARBC (Bld) [#/Vol]3.71 10*6/uLLow3.80-5.00The [facility] AkronComment on above:Order Comment: No: Do not add to previous drawPerformed By: #### 22990 #### [facility] [address] [place] [address], USAWBC (Bld) [#/Vol]9.85 10*3/uLNormal4.00-10.60The [facility] AkronComment on above:Order Comment: No: Do not add to previous drawPerformed By: #### 03705 #### [facility] [address] [place] [address], USACTA ABDOMEN AND PELVISon [id number] ABDOMEN AND PELVIS [facility] Department of Radiology [address] [place] [address] [id number] Patient Name: DIANN PATEL : 1955 Sex: F Age: Race: White Pt. Location: [id number] Patient Status: D Ordered Date: 07/02/2022 8:20:00 [...] achievable Electronically signed: Robinson Zhu. Transcribed by: [email or web address], User Resident: Electronically Signed by: ROBINSON ZHU @ 07/12/2022 01:12 [facility] HealthcareComment on above:Order Comment: No: Do not add to previous draw No collection time noted on specimen or requisition. The collection time recorded is the time of receipt in the lab.CTA CHESTon [id number] CHEST [facility] Department of Radiology [address] [place] [id number] Patient Name: DIANN PATEL : 1955 Sex: F Age: Race: White Pt. Location: [id number] Patient Status: D Ordered Date: 07/02/2022 8:20:00 [...] 3 cusped view, anterior view and no [employer]-CAU view are obtained in 3-D volume rendered [...] calcification. Electronically signed: Robinson Zhu. Transcribed by: [email or web address], User Resident: Electronically Signed by: ROBINSON ZHU @ 07/12/2022 01:06 [facility] HealthcareComment on above:Order Comment: No: Do not add to previous draw No collection time noted on specimen or requisition. The collection time recorded is the time of receipt in the lab.Cardiovascular Lab Reporton [id number] Lab ReportUnWVUMedicine [facility] Hospital Patient Name: [facility] Josep MR #: [id number] Department of Physician: Alex Kelly M.D. Division of Service Date: 07/01/2022 Cardiology Birthdate: 1955 Adult Cardiovascular Room #: 4AB [id number] [place] [address] Cardiovascular Laboratory Report CLINICAL PRESENTATION: The patient [...] ultrasound guidance and micropuncture access technique, a 6-Somali sheath was placed in right common femoral [...] exchanges were made over the J-tip guidewire, 6-Somali JL4 was used to engage the left main coronary artery. A 6-Somali JR4 was used to engage the right coronary artery. A 6-Somali JR4 was used to engage the radial bypass graft to the D1 and the SVG to the OM2. The 6-Somali JR4 was also used to engage the [...] Betts M.D. Date Trans: 07/02/2022 10:08 A/abdiaziz DN_JN:[id number] cc: Champ Bell M.D. 3 [facility] [address]JjutzzTuoKettering Health TroyMAGNESIUM BLOODon [id number] [Mass/Vol]1.9 mg/dLNormal1.9-2.7The [facility] AkronComment on above:Order Comment: No: Do not add to previous draw Performed By: #### 96869 #### [facility] [address] [place] [address], USAPOC GLUCOSE LABon 12-46-7973Bcwbhxw [Mass/Vol]268 mg/dLHigh 70-100The [facility] AkronComment on above:Performed By: #### 26902 #### [facility] [address] [place] [address], USAGlucose [Mass/Vol]255 mg/rWVkab93-996Iab [facility] AkronComment on above:Performed By: #### 92301 #### [facility] [address] [place] [address], USAGlucose [Mass/Vol]173 mg/wTLtdc23-692Nmo [facility] AkronComment on above:Performed By: #### 99050 #### [facility] [address] [place] [address], USAGlucose [Mass/Vol]193 mg/wRUbya74-605Tfl [facility] AkronComment on above:Performed By: #### 91072, 03044, 92285 #### [facility] [address] [place] [address], USAGlucose [Mass/Vol]185 mg/hJBzvj19-212Ufm [facility] AkronComment on above:Performed By: #### 29597, 83023, 11804 #### [facility] [address] [place] [address], USAUFH HEPARIN ASSAYon [id number] HEPARIN<0.10 Critically low0.30-0.70The [facility] AkronComment on above: Result Comment: RESULTS CHECKED AND CALLED. ACCURATELY READ BACK BY Jessa Schaefer RN at 2200 PMW 07-02-22. Rivaroxaban and Apixaban will interfere with the anti Xa assay used to monitor UFH and LMWH.Performed By: #### 69575 #### [facility] [address] [place] [address], USABASIC METABOLIC PANELon 62-88-8809Vawcrdf [Mass/Vol]8.5 mg/dLLow8.6-10.3The [facility] AkronComment on above:Order Comment: No: Do not add to previous drawPerformed By: #### 11688, 06884 #### [facility] [address] [place] [address], USAChloride [Moles/Vol]105 mmol/ENdqqnj90-736Xci [facility] AkronComment on above:Order Comment: No: Do not add to previous drawPerformed By: #### 48618, 16487 #### [facility] [address] [place] [address], USACO2 [Moles/Vol]22 mmol/GZmardk44-17Eoe [facility] AkronComment on above:Order Comment: No: Do not add to previous draw Performed By: #### 57775, 69949 #### [facility] [address] [place] [address], USACreatinine [Mass/Vol]0.57 mg/dLLow0.60-1.20The [facility] AkronComment on above:Order Comment: No: Do not add to previous drawPerformed By: #### 36564, 13345 #### [facility] [address] [place] [address], USAGFR/1.73 sq M.predicted among non-blacks MDRD (S/P/Bld) [Vol rate/Area]mL/min/{1.73_m2}Normal>60The [facility] Comment on above:Order Comment: No: Do not add to previous drawResult Comment: The [facility]'s estimated glomerular filtration rate (eGFR) will no [...] any one group of individuals.Performed By: #### 14844, 46981 #### [facility] [address] [place] [address], USAGlucose [Mass/Vol]164 mg/eOEriz93-682Bae [facility] AkronComment on above:Order Comment: No: Do not add to previous drawPerformed By: #### 45424, 16894 #### [facility] [address] [place] [address], USAPotassium [Moles/Vol]3.8 mmol/LNormal3.5-5.1The [facility] AkronComment on above:Order Comment: No: Do not add to previous drawPerformed By: #### 93474, 69308 #### [facility] [address] [address], USASodium [Moles/Vol]137 mmol/EWvhhsj468-033Mir [facility] AkronComment on above:Order Comment: No: Do not add to previous drawPerformed By: #### 09402, 44815 #### [facility] [address] [facility] [place] [address], USAUrea nitrogen [Mass/Vol]18 mg/dLNormal7-25The [facility] AkronComment on above:Order Comment: No: Do not add to previous drawPerformed By: #### 75477, 03717 #### [facility] [address] [facility] [place] [address], Z[facility] COMPRE[facility]ENS[facility]ALTH CENTERCBC W/DIFFon 14-53-9300HXV IMM GRANS0.1 10*3/uLNormal 0.0-0.2The [facility] AkronComment on above:Order Comment: No: Do not add to previous drawPerformed By: #### 46939 #### [facility] [address] [facility] [place] [address], USAABS NEUTROPHILS5.1 10*3/uLNormal1.6-7.6The [facility] AkronComment on above:Order Comment: No: Do not add to previous drawPerformed By: #### 84880 #### [facility] [address] [facility] [place] [address], USABasophils (Bld) [#/Vol]0.1 10*3/uLNormal0.0-0.2The [facility] AkronComment on above:Order Comment: No: Do not add to previous drawPerformed By: #### 63671 #### [facility] [address] [place] [address], USABasophils/100 WBC (Bld)0.6 %Normal0.0-1.0The [facility] AkronComment on above:Order Comment: No: Do not add to previous drawPerformed By: #### 42849 #### [facility] [address] [address], USAEosinophils (Bld) [#/Vol]0.3 10*3/uLNormal0.0-0.5The [facility] AkronComment on above:Order Comment: No: Do not add to previous drawPerformed By: #### 32277 #### [facility] [address] [address], USAEosinophils/100 WBC (Bld)2.8 %Normal0.0-6.0The [facility] AkronComment on above:Order Comment: No: Do not add to previous drawPerformed By: #### 39412 #### [facility] [address] [facility] [place] [address], USAErythrocyte distribution width (RBC) [Ratio]13.3 %Normal 11.5-15.0The [facility] AkronComment on above:Order Comment: No: Do not add to previous drawPerformed By: #### 65133 #### [facility] [address] [facility] [place] [address], USAHematocrit (Bld) [Volume fraction]32.6 %Low36.0-45.0The [facility] AkronComment on above:Order Comment: No: Do not add to previous drawPerformed By: #### 80362 #### [facility] [address] [place] [address], USAHemoglobin (Bld) [Mass/Vol]10.6 g/dLLow12.0-15.0The [facility] AkronComment on above:Order Comment: No: Do not add to previous drawPerformed By: #### 51354 #### [facility] [address] [place] [address], USAIMMATURE GRANS0.7 %Normal0.0-1.0The [facility] AkronComment on above:Order Comment: No: Do not add to previous draw Performed By: #### 75081 #### [facility] [address] [place] [address], USALymphocytes (Bld) [#/Vol]2.4 10*3/uLNormal1.2-4.0The [facility] AkronComment on above:Order Comment: No: Do not add to previous drawPerformed By: #### 51194 #### [facility] [address] [place] [address], USALymphocytes/100 WBC (Bld)26.6 %Tzusmg32.0-45.0The [facility] AkronComment on above:Order Comment: No: Do not add to previous drawPerformed By: #### 19516 #### [facility] [address] [place] [address], [facility] (RBC) [Entitic mass]27.0 vmVqecnu68.0-33.0The [facility] AkronComment on above:Order Comment: No: Do not add to previous drawPerformed By: #### 44251 #### [facility] [address] [place] [address], [facility] CENTERMCHC (RBC) [Mass/Vol]32.5 g/gIYskdte68.0-35.0The [facility] AkronComment on above:Order Comment: No: Do not add to previous drawPerformed By: #### 05666 #### [facility] [address] [place] [address], [facility]PRE[facility]ENS[facility] HEALTH CENTERMCV (RBC) [Entitic vol]83.0 cPMyyyij24.0-98.0The [facility] AkronComment on above:Order Comment: No: Do not add to previous drawPerformed By: #### 85029 #### [facility] [address] [place] [address], USAMonocytes (Bld) [#/Vol]1.2 10*3/uLHigh0.1-1.0The [facility] AkronComment on above:Order Comment: No: Do not add to previous drawPerformed By: #### 96303 #### [facility] [address] [place] [address], WMGAKLFR83.0 %High5.0-12.0The [facility] AkronComment on above:Order Comment: No: Do not add to previous drawPerformed By: #### 71383 #### [facility] [address] [place] [address], USANeutrophils/100 WBC (Bld)56.3 %Ftfcuu65.0-72.0The [facility] AkronComment on above:Order Comment: No: Do not add to previous drawPerformed By: #### 15422 #### [facility] [address] [place] [address], USANucleated RBC/100 WBC (Bld) [Ratio]0 %Normal0-0The [facility] AkronComment on above:Order Comment: No: Do not add to previous drawPerformed By: #### 65725 #### [facility] [address] [place] [address], USAPLAT OTD783 10*3/nEFsxgcn848-744Oob [facility] AkronComment on above:Order Comment: No: Do not add to previous draw Performed By: #### 32543 #### [facility] [address] [place] [address], USARBC (Bld) [#/Vol]3.93 10*6/uLNormal3.80-5.00The [facility] AkronComment on above:Order Comment: No: Do not add to previous drawPerformed By: #### 41859 #### [facility] [address] [place] [address], USAWBC (Bld) [#/Vol]9.05 10*3/uLNormal4.00-10.60The [facility] AkronComment on above:Order Comment: No: Do not add to previous drawPerformed By: #### 88965 #### [facility] [address] [place] [address], USAMAGNESIUM BLOODon 66-93-4954Cjryyktmy [Mass/Vol]1.7 mg/dL Low1.9-2.7The [facility] AkronComment on above:Order Comment: No: Do not add to previous drawPerformed By: #### 94825, 14511 #### [facility] [address] [place] [address], USAPOC GLUCOSE LABon 98-20-5770Ykuhxaq [Mass/Vol]253 mg/dLHigh 70-100The [facility] AkronComment on above:Performed By: #### 32210 #### [facility] [address] [place] [address], USAGlucose [Mass/Vol]160 mg/bNQlcu25-624Yif [facility] AkronComment on above:Performed By: #### 80032 #### [facility] [address] [place] [address], USAGlucose [Mass/Vol]174 mg/xGNrwz28-601Aul [facility] AkronComment on above:Performed By: #### 61490 #### [facility] [address] [place] [address], USAGlucose [Mass/Vol]185 mg/eIBtge83-713Npl [facility] AkronComment on above:Performed By: #### 79893 #### [facility] [address] [place] [address], USAGlucose [Mass/Vol]176 mg/sFLsqz69-153Nby [facility] AkronComment on above:Performed By: #### 57451 #### [facility] [address] [place] [address], USAUFH HEPARIN ASSAYon 03-37-7389ASRVNJLREPZKMF HEPARIN0.88 IU/mLHigh0.30-0.70The [facility] AkronComment on above:Result Comment: Rivaroxaban and Apixaban will interfere with the anti Xa assay used to monitor UFH and LMWH.Performed By: #### 79339 #### [facility] [address] [place] [address], USABASIC METABOLIC PANELon [id number] [Mass/Vol]8.5 mg/dLLow8.6-10.3The [facility] AkronComment on above:Order Comment: No: Do not add to previous drawPerformed By: #### 69979, 45405, 30835 #### [facility] [address] [place] [address], USAChloride [Moles/Vol]103 mmol/BNpzbxi40-771Crs [facility] AkronComment on above:Order Comment: No: Do not add to previous drawPerformed By: #### 41008, 83418, 46829 #### [facility] [address] [place] [address], USACO2 [Moles/Vol]25 mmol/VFriipf38-76Goy [facility] AkronComment on above:Order Comment: No: Do not add to previous draw Performed By: #### 82233, 81995, 76941 #### [facility] [facility] [address] [place] [address], USACreatinine [Mass/Vol]0.50 mg/dLLow0.60-1.20The [facility] AkronComment on above:Order Comment: No: Do not add to previous drawPerformed By: #### [id number], [id number], 71265 #### [facility] [address] [place] [address], USAGFR/1.73 sq M.predicted among non-blacks MDRD (S/P/Bld) [Vol rate/Area]mL/min/{1.73_m2}Normal>60The [facility] Comment on above:Order Comment: No: Do not add to previous drawResult Comment: The [facility]'s estimated glomerular filtration rate (eGFR) will no [...] any one group of individuals.Performed By: #### 03223, 67799, 18677 #### [facility] [address] [facility] [place] [address], USAGlucose [Mass/Vol]166 mg/jHKzgh07-638Pof [facility] AkronComment on above:Order Comment: No: Do not add to previous drawPerformed By: #### 54729, 40120, 76525 #### [facility] [address] [place] [address], USAPotassium [Moles/Vol]3.3 mmol/LLow3.5-5.1The [facility] AkronComment on above:Order Comment: No: Do not add to previous drawPerformed By: #### 40234, 13823, 43293 #### [facility] [address] [place] [address], USASodium [Moles/Vol]138 mmol/CWebdgf204-920Ape [facility] AkronComment on above:Order Comment: No: Do not add to previous drawPerformed By: #### 10654, 46102, 25981 #### [facility] [address] [facility] [place] [address], USAUrea nitrogen [Mass/Vol]17 mg/dLNormal7-25The [facility] AkronComment on above:Order Comment: No: Do not add to previous drawPerformed By: #### 57282, 09083, 98976 #### [facility] [address] [facility] [place] [address], USACBC W/DIFFon [id number] IMM GRANS0.1 10*3/uLNormal 0.0-0.2The [facility] AkronComment on above:Order Comment: No: Do not add to previous draw No collection time noted on specimen or requisition. The collection time recorded is the time of receipt in the lab.Performed By: #### [id number] #### [facility] [address] [facility] [place] [address], USAABS NEUTROPHILS4.4 10*3/uLNormal1.6-7.6The [facility] AkronComment on above:Order Comment: No: Do not add to previous draw No collection time noted on specimen or requisition. The collection time recorded is the time of receipt in the lab.Performed By: #### [id number] #### [facility] [address] [facility] [place] [address], [facility] HEALTH CENTERBasophils (Bld) [#/Vol]0.1 10*3/uLNormal0.0-0.2The [facility] AkronComment on above:Order Comment: No: Do not add to previous draw No collection time noted on specimen or requisition. The collection time recorded is the time of receipt in the lab.Performed By: #### [id number] #### [facility] [address] [facility] [place] [address], [facility] HEALTH CENTERBasophils/100 WBC (Bld)0.6 %Normal0.0-1.0The [facility] AkronComment on above:Order Comment: No: Do not add to previous draw No collection time noted on specimen or requisition. The collection time recorded is the time of receipt in the lab.Performed By: #### [id number] #### [facility] [address] [facility] [place] [address], [facility] HEALTH CENTEREosinophils (Bld) [#/Vol]0.3 10*3/uLNormal0.0-0.5The [facility] AkronComment on above:Order Comment: No: Do not add to previous draw No collection time noted on specimen or requisition. The collection time recorded is the time of receipt in the lab.Performed By: #### [id number] #### [facility] [address] [place] [address], USAEosinophils/100 WBC (Bld)3.3 %Normal0.0-6.0The [facility] AkronComment on above:Order Comment: No: Do not add to previous draw No collection time noted on specimen or requisition. The collection time recorded is the time of receipt in the lab.Performed By: #### [id number] #### [facility] [address] [place] [address], USAErythrocyte distribution width (RBC) [Ratio]13.2 %Normal 11.5-15.0The [facility] AkronComment on above:Order Comment: No: Do not add to previous draw No collection time noted on specimen or requisition. The collection time recorded is the time of receipt in the lab.Performed By: #### [id number] #### [facility] [address] [place] [address], USAHematocrit (Bld) [Volume fraction]35.3 %Low36.0-45.0The [facility] AkronComment on above:Order Comment: No: Do not add to previous draw No collection time noted on specimen or requisition. The collection time recorded is the time of receipt in the lab.Performed By: #### 66565 #### [facility] [address] [place] [address], USAHemoglobin (Bld) [Mass/Vol]11.2 g/dLLow12.0-15.0The [facility] AkronComment on above:Order Comment: No: Do not add to previous draw No collection time noted on specimen or requisition. The collection time recorded is the time of receipt in the lab.Performed By: #### 08505 #### [facility] [address] [facility] [place] [address], USAIMMATURE GRANS0.7 %Normal0.0-1.0The [facility] AkronComment on above:Order Comment: No: Do not add to previous draw No collection time noted on specimen or requisition. The collection time recorded is the time of receipt in the lab.Performed By: #### 05980 #### [facility] [address] [facility] [place] [address], USALymphocytes (Bld) [#/Vol]2.3 10*3/uLNormal1.2-4.0The [facility] AkronComment on above:Order Comment: No: Do not add to previous draw No collection time noted on specimen or requisition. The collection time recorded is the time of receipt in the lab.Performed By: #### 66750 #### [facility] [address] [facility] [place] [address], USALymphocytes/100 WBC (Bld)28.1 %Hfumhi45.0-45.0The [facility] AkronComment on above:Order Comment: No: Do not add to previous draw No collection time noted on specimen or requisition. The collection time recorded is the time of receipt in the lab.Performed By: #### 95028 #### [facility] [address] [facility] [place] [address], USAMCH (RBC) [Entitic mass]26.3 pgLow27.0-33.0The [facility] AkronComment on above:Order Comment: No: Do not add to previous draw No collection time noted on specimen or requisition. The collection time recorded is the time of receipt in the lab.Performed By: #### 93546 #### [facility] [address] [facility] [place] [address], [facility]PRE[facility]ENSIVE HEALTH CENTERMCHC (RBC) [Mass/Vol]31.7 g/dLLow32.0-35.0The [facility] AkronComment on above:Order Comment: No: Do not add to previous draw No collection time noted on specimen or requisition. The collection time recorded is the time of receipt in the lab.Performed By: #### 82558 #### [facility] [address] [facility] [place] [address], [facility] HE[facility] CENTERMCV (RBC) [Entitic vol]82.9 uSWkcmsw04.0-98.0The [facility] AkronComment on above:Order Comment: No: Do not add to previous draw No collection time noted on specimen or requisition. The collection time recorded is the time of receipt in the lab.Performed By: #### 74696 #### [facility] [address] [facility] [place] [address], USAMonocytes (Bld) [#/Vol]1.1 10*3/uLHigh0.1-1.0The [facility]ronComment on above:Order Comment: No: Do not add to previous draw No collection time noted on specimen or requisition. The collection time recorded is the time of receipt in the lab.Performed By: #### 56960 #### [facility] [address] [facility] [place] [address], FJKCWVMC48.3 %High5.0-12.0The [facility] AkronComment on above:Order Comment: No: Do not add to previous draw No collection time noted on specimen or requisition. The collection time recorded is the time of receipt in the lab.Performed By: #### [id number] #### [facility] [address] [facility] [place] [address], USANeutrophils/100 WBC (Bld)54.0 %Isfkci30.0-72.0The [facility] AkronComment on above:Order Comment: No: Do not add to previous draw No collection time noted on specimen or requisition. The collection time recorded is the time of receipt in the lab.Performed By: #### 06525 #### [facility] [address] [facility] [place] [address], USANucleated RBC/100 WBC (Bld) [Ratio]0 %Normal0-0The [facility] AkronComment on above:Order Comment: No: Do not add to previous draw No collection time noted on specimen or requisition. The collection time recorded is the time of receipt in the lab.Performed By: #### 56905 #### [facility] [address] [facility] [place] [address], USAPLAT DXS321 10*3/gMEtaqjt511-081Zvy [facility]ronComment on above:Order Comment: No: Do not add to previous draw No collection time noted on specimen or requisition. The collection time recorded is the time of receipt in the lab.Performed By: #### [id number] #### [facility] [address] [facility] [place] [address], USARBC (Bld) [#/Vol]4.26 10*6/uLNormal3.80-5.00The [facility] AkronComment on above:Order Comment: No: Do not add to previous draw No collection time noted on specimen or requisition. The collection time recorded is the time of receipt in the lab.Performed By: #### 72277 #### [facility] [address] [facility] [place] [address], Z[facility] COMPREHENSIVE HEALTH CENTERWBC (Bld) [#/Vol]8.18 10*3/uLNormal4.00-10.60The [facility] AkronComment on above:Order Comment: No: Do not add to previous draw No collection time noted on specimen or requisition. The collection time recorded is the time of receipt in the lab.Performed By: #### 46761 #### [facility] [address] [facility] [place] [address], USAMAGNESIUM BLOODon [id number] [Mass/Vol]1.8 mg/dL Low1.9-2.7The [facility] AkronComment on above:Order Comment: No: Do not add to previous drawPerformed By: #### 70072, 95198, 28667 #### [facility] [address] [place] [address], USAPOC GLUCOSE LABon [id number] [Mass/Vol]266 mg/dLHigh 70-100The [facility] AkronComment on above:Performed By: #### 27153 #### [facility] [address] [place] [address], USAGlucose [Mass/Vol]346 mg/oFPhcd83-553Edq [facility]ronComment on above:Performed By: #### 58345, 67007, 45776 #### [facility] [address] [facility] [address], USAGlucose [Mass/Vol]206 mg/sCTpsa30-085Lbw [facility] AkronComment on above:Performed By: #### 77156, 76883, 54561 #### [facility] [address] [facility] [place] [address], USATROPONIN-Ion [id number] I.cardiac [Mass/Vol]1.03 ng/mLCritically high0.00-0.04The [facility] AkronComment on above:Result Comment: M-PREVIOUS CRITICAL RESULT REFERENCE RANGES: 0.00 - 0.04 ng/ml NORMAL 0.05 - 0.50 ng/ml INDETERMINATE > 0.50 ng/ml CONSISTENT WITH AN M.I.Performed By: #### 14092, 14162, 60814 #### [facility] [address] [facility] [place] [address], USAUFH HEPARIN ASSAYon [id number] HEPARIN0.70 IU/mLNormal0.30-0.70The [facility] AkronComment on above: Result Comment: Rivaroxaban and Apixaban will interfere with the anti Xa assay used to monitor UFH and LMWH.Performed By: #### 31605 #### [facility] [address] [place] [address], USAUNFRACTIONATED HEPARIN0.61 IU/mLNormal0.30-0.70The [facility] AkronComment on above:Result Comment: Rivaroxaban and Apixaban will interfere with the anti Xa assay used to monitor UFH and LMWH.Performed By: #### 02294 #### [facility] [address] [place] [address], USAUNFRACTIONATED HEPARIN0.85 IU/mLHigh0.30-0.70The [facility] AkronComment on above:Result Comment: Rivaroxaban and Apixaban will interfere with the anti Xa assay used to monitor UFH and LMWH.Performed By: #### 35061 #### [facility] [address] [facility] [place] [id number], [facility]PRE[facility] HEALTH CENTERCBC COMPLETE BLOOD COUNTon [id number] distribution width (RBC) [Ratio]13.4 %Wqvrcz21.5-15.0The [facility] AkronComment on above:Order Comment: No: Do not add to previous draw Performed By: #### 22320 #### [facility] [address] [facility] [place] [address], USAHematocrit (Bld) [Volume fraction]34.3 %Low36.0-45.0The [facility] AkronComment on above:Order Comment: No: Do not add to previous drawPerformed By: #### [id number] #### [facility] [address] [facility] [place] [address], USAHemoglobin (Bld) [Mass/Vol]11.3 g/dLLow12.0-15.0The [facility] AkronComment on above:Order Comment: No: Do not add to previous drawPerformed By: #### 89569 #### [facility] [address] [place] [address], [facility] (RBC) [Entitic mass]27.2 kqJayuxz91.0-33.0The [facility] AkronComment on above:Order Comment: No: Do not add to previous drawPerformed By: #### [id number] #### [facility] [address] [place] [id number], [facility]UNCANHC (RBC) [Mass/Vol]32.9 g/iRSnazmk46.0-35.0The [facility] AkronComment on above:Order Comment: No: Do not add to previous drawPerformed By: #### 65259 #### [facility] [address] [place] [address], [facility]V (RBC) [Entitic vol]82.7 bFKhbcag15.0-98.0The [facility] AkronComment on above:Order Comment: No: Do not add to previous drawPerformed By: #### [id number] #### [facility] [address] [place] [address], Z[facility]PRE[facility]ENSIVE HEALTH CENTERNucleated RBC/100 WBC (Bld) [Ratio]0 %Normal0-0The [facility] AkronComment on above:Order Comment: No: Do not add to previous drawPerformed By: #### 68916 #### [facility] [address] [place] [address], USAPLAT UQL350 10*3/hNOmcaea970-894Msb [facility] AkronComment on above:Order Comment: No: Do not add to previous draw Performed By: #### 68706 #### [facility] [address] [place] [address], Z[facility]PREHENS[facility] HEALTH CENTERRBC (Bld) [#/Vol]4.15 10*6/uLNormal3.80-5.00The [facility] AkronComment on above:Order Comment: No: Do not add to previous drawPerformed By: #### 91226 #### [facility] [address] [facility]. [place] [id number], USAWBC (Bld) [#/Vol]7.28 10*3/uLNormal4.00-10.60The [facility] AkronComment on above:Order Comment: No: Do not add to previous drawPerformed By: #### 81087 #### [facility] [address] [facility] [place] [address], USAErythrocyte distribution width (RBC) [Ratio]13.3 %Normal 11.5-15.0The [facility] AkronComment on above:Order Comment: No: Do not add to previous draw No collection time noted on specimen or requisition. The collection time recorded is the time of receipt in the lab.Performed By: #### [id number] #### [facility] [address] [facility] [place] [address], USAHematocrit (Bld) [Volume fraction]33.4 %Low36.0-45.0The [facility] AkronComment on above:Order Comment: No: Do not add to previous draw No collection time noted on specimen or requisition. The collection time recorded is the time of receipt in the lab.Performed By: #### 34434 #### [facility] [address] [facility] [place] [address], USAHemoglobin (Bld) [Mass/Vol]10.8 g/dLLow12.0-15.0The [facility] AkronComment on above:Order Comment: No: Do not add to previous draw No collection time noted on specimen or requisition. The collection time recorded is the time of receipt in the lab.Performed By: #### 42922 #### [facility] [address] [facility]. [place] [id number], USAMCH (RBC) [Entitic mass]26.8 pgLow27.0-33.0The [facility] AkronComment on above:Order Comment: No: Do not add to previous draw No collection time noted on specimen or requisition. The collection time recorded is the time of receipt in the lab.Performed By: #### 22045 #### [facility] [address] [facility] [place] [address], [facility]PRE[facility]ALTH CENTERMCHC (RBC) [Mass/Vol]32.3 g/fDXvmimo98.0-35.0The [facility] AkronComment on above:Order Comment: No: Do not add to previous draw No collection time noted on specimen or requisition. The collection time recorded is the time of receipt in the lab.Performed By: #### 94057 #### [facility] [address] [facility] [place] [address], [facility] CENTERMCV (RBC) [Entitic vol]82.9 oDDlmtmy06.0-98.0The [facility] AkronComment on above:Order Comment: No: Do not add to previous draw No collection time noted on specimen or requisition. The collection time recorded is the time of receipt in the lab.Performed By: #### 85870 #### [facility] [address] [facility] [place] [address], USANucleated RBC/100 WBC (Bld) [Ratio]0 %Normal0-0The [facility] AkronComment on above:Order Comment: No: Do not add to previous draw No collection time noted on specimen or requisition. The collection time recorded is the time of receipt in the lab.Performed By: #### [id number] #### [facility] [address] [facility] [place] [address], USAPLAT FRX467 10*3/zTVlftpk449-092Byd [facility] AkronComment on above:Order Comment: No: Do not add to previous draw No collection time noted on specimen or requisition. The collection time recorded is the time of receipt in the lab.Performed By: #### 05249 #### [facility] [address] [facility] [place] [address], [facility] CENTERRBC (Bld) [#/Vol]4.03 10*6/uLNormal3.80-5.00The [facility] AkronComment on above:Order Comment: No: Do not add to previous draw No collection time noted on specimen or requisition. The collection time recorded is the time of receipt in the lab.Performed By: #### 90581 #### [facility] [address] [address], USAWBC (Bld) [#/Vol]7.85 10*3/uLNormal4.00-10.60The [facility] AkronComment on above:Order Comment: No: Do not add to previous draw No collection time noted on specimen or requisition. The collection time recorded is the time of receipt in the lab.Performed By: #### 33052 #### [facility] [address] [facility] [place] [address], USACBC W/DIFFon [id number] IMM GRANS0.0 10*3/uLNormal 0.0-0.2The [facility] AkronComment on above:Order Comment: No collection time noted on specimen or requisition. The collection timerecorded is the time of receipt in the lab.Performed By: #### 76839 #### [facility] [address] [facility] [place] [address], USAABS NEUTROPHILS5.2 10*3/uLNormal1.6-7.6The [facility] AkronComment on above:Order Comment: No collection time noted on specimen or requisition. The collection timerecorded is the time of receipt in the lab.Performed By: #### [id number] #### [facility] [address] [facility] [place] [address], USABasophils (Bld) [#/Vol]0.0 10*3/uLNormal0.0-0.2The [facility] AkronComment on above:Order Comment: No collection time noted on specimen or requisition. The collection timerecorded is the time of receipt in the lab.Performed By: #### 44611 #### [facility] [address] [facility] [place] [address], USABasophils/100 WBC (Bld)0.5 %Normal0.0-1.0The [facility] AkronComment on above:Order Comment: No collection time noted on specimen or requisition. The collection timerecorded is the time of receipt in the lab.Performed By: #### 92220 #### [facility] [address] [facility] [place] [address], USAEosinophils (Bld) [#/Vol]0.1 10*3/uLNormal0.0-0.5The [facility] AkronComment on above:Order Comment: No collection time noted on specimen or requisition. The collection timerecorded is the time of receipt in the lab.Performed By: #### [id number] #### [facility] [address] [facility]. [place] [id number], USAEosinophils/100 WBC (Bld)1.3 %Normal0.0-6.0The [facility] AkronComment on above:Order Comment: No collection time noted on specimen or requisition. The collection timerecorded is the time of receipt in the lab.Performed By: #### [id number] #### [facility] [address] [facility] [place] [address], USAErythrocyte distribution width (RBC) [Ratio]13.3 %Normal 11.5-15.0The [facility] AkronComment on above:Order Comment: No collection time noted on specimen or requisition. The collection timerecorded is the time of receipt in the lab.Performed By: #### [id number] #### [facility] [address] [facility] [place] [address], USAHematocrit (Bld) [Volume fraction]34.0 %Low36.0-45.0The [facility] AkronComment on above:Order Comment: No collection time noted on specimen or requisition. The collection timerecorded is the time of receipt in the lab.Performed By: #### 75078 #### [facility] [address] [place] [address], USAHemoglobin (Bld) [Mass/Vol]11.4 g/dLLow12.0-15.0The [facility] AkronComment on above:Order Comment: No collection time noted on specimen or requisition. The collection timerecorded is the time of receipt in the lab.Performed By: #### 94913 #### [facility] [address] [facility] [place] [address], USAIMMATURE GRANS0.4 %Normal0.0-1.0The [facility] AkronComment on above:Order Comment: No collection time noted on specimen or requisition. The collection timerecorded is the time of receipt in the lab.Performed By: #### 48034 #### [facility] [address] [facility] [place] [address], USALymphocytes (Bld) [#/Vol]1.5 10*3/uLNormal1.2-4.0The [facility] AkronComment on above:Order Comment: No collection time noted on specimen or requisition. The collection timerecorded is the time of receipt in the lab.Performed By: #### [id number] #### [facility] [address] [facility] [place] [address], USALymphocytes/100 WBC (Bld)19.5 %Low20.0-45.0The [facility] AkronComment on above:Order Comment: No collection time noted on specimen or requisition. The collection timerecorded is the time of receipt in the lab.Performed By: #### [id number] #### [facility] [address] [facility] [place] [address], USAMCH (RBC) [Entitic mass]27.7 smVivcbq28.0-33.0The [facility] AkronComment on above:Order Comment: No collection time noted on specimen or requisition. The collection timerecorded is the time of receipt in the lab.Performed By: #### [id number] #### [facility] [address] [place] [address], [facility] COMPREHENSIVE HEALTH CENTERMCHC (RBC) [Mass/Vol]33.5 g/zOApmitw56.0-35.0The [facility] - AkronComment on above:Order Comment: No collection time noted on specimen or requisition. The collection timerecorded is the time of receipt in the lab.Performed By: #### [id number] #### [facility] [address] [place] [address], [facility] COMPREHENSIVE HEALTH CENTERMCV (RBC) [Entitic vol]82.7 cAZbgeil06.0-98.0The [facility] - AkronComment on above:Order Comment: No collection time noted on specimen or requisition. The collection timerecorded is the time of receipt in the lab.Performed By: #### [id number] #### [facility] [address] [facility] [place] [address], USAMonocytes (Bld) [#/Vol]1.0 10*3/uLNormal0.1-1.0The [facility] AkronComment on above:Order Comment: No collection time noted on specimen or requisition. The collection timerecorded is the time of receipt in the lab.Performed By: #### [id number] #### [facility] [address] [facility] [place] [address], WEKNSKON81.5 %High5.0-12.0The [facility] - AkronComment on above:Order Comment: No collection time noted on specimen or requisition. The collection timerecorded is the time of receipt in the lab. Performed By: #### [id number] #### [facility] [address] [facility]. [place] [id number], USANeutrophils/100 WBC (Bld)65.8 %Mnopqf40.0-72.0The [facility] AkronComment on above:Order Comment: No collection time noted on specimen or requisition. The collection timerecorded is the time of receipt in the lab.Performed By: #### [id number] #### [facility] [address] [place] [address], USANucleated RBC/100 WBC (Bld) [Ratio]0 %Normal0-0The [facility] - AkronComment on above:Order Comment: No collection time noted on specimen or requisition. The collection timerecorded is the time of receipt in the lab.Performed By: #### [id number] #### [facility] [address] [facility] [place] [place] [address], USAPLAT HCY960 10*3/gBUfssfl377-716Cqu [facility] AkronComment on above:Order Comment: No collection time noted on specimen or requisition. The collection timerecorded is the time of receipt in the lab.Performed By: #### [id number] #### [facility] [address] [facility] [place] [address], USARBC (Bld) [#/Vol]4.11 10*6/uLNormal3.80-5.00The [facility] AkronComment on above:Order Comment: No collection time noted on specimen or requisition. The collection timerecorded is the time of receipt in the lab.Performed By: #### [id number] #### [facility] [address] [facility] [place] [place] [address], USAWBC (Bld) [#/Vol]7.91 10*3/uLNormal4.00-10.60The [facility] AkronComment on above:Order Comment: No collection time noted on specimen or requisition. The collection timerecorded is the time of receipt in the lab.Performed By: #### [id number] #### [facility] [address] [facility] [place] [address], USACOMP METABOLIC PANELon 71-90-4052Jycbjvx [Mass/Vol]2.9 g/dL Low3.5-5.7The [facility] - AkronComment on above:Order Comment: No: Do not add to previous draw No collection time noted on specimen or requisition. The collection time recorded is the time of receipt in the lab.Performed By: #### [id number] #### [facility] [address] [place] [address], USAALKALINE XQIVEU00 IU/GGxiadj98-927Sbx [facility] AkronComment on above:Order Comment: No: Do not add to previous draw No collection time noted on specimen or requisition. The collection time recorded is the time of receipt in the lab.Performed By: #### [id number] #### [facility] [address] [place] [address], USAALT [Catalytic activity/Vol]21 U/LNormal7-52The [facility] AkronComment on above:Order Comment: No: Do not add to previous draw No collection time noted on specimen or requisition. The collection time recorded is the time of receipt in the lab.Performed By: #### [id number] #### [facility] [address] [place] [address], USAAST [Catalytic activity/Vol]27 U/YLuxfbp36-56Wbv [facility] AkronComment on above:Order Comment: No: Do not add to previous draw No collection time noted on specimen or requisition. The collection time recorded is the time of receipt in the lab.Performed By: #### [id number] #### [facility] [address] [place] [address], USABilirubin [Mass/Vol]0.5 mg/dLNormal0.3-1.0The [facility] AkronComment on above:Order Comment: No: Do not add to previous draw No collection time noted on specimen or requisition. The collection time recorded is the time of receipt in the lab.Performed By: #### [id number] #### [facility] [address] [place] [address], USACalcium [Mass/Vol]8.2 mg/dLLow8.6-10.3The [facility] AkronComascension standish hospital on above:Order Comment: No: Do not add to previous draw No collection time noted on specimen or requisition. The collection time recorded is the time of receipt in the lab.Performed By: #### [id number] #### [facility] [address] [place] [address], USAChloride [Moles/Vol]101 mmol/JGfkdou91-127Xpz [facility] AkronComment on above:Order Comment: No: Do not add to previous draw No collection time noted on specimen or requisition. The collection time recorded is the time of receipt in the lab.Performed By: #### [id number] #### [facility] [address] [place] [address], USACO2 [Moles/Vol]22 mmol/IVoqhwg50-83Lif [facility] AkronComment on above:Order Comment: No: Do not add to previous draw No collection time noted on specimen or requisition. The collection time recorded is the time of receipt in the lab.Performed By: #### [id number] #### [facility] [address] [place] [address], USACreatinine [Mass/Vol]0.45 mg/dLLow0.60-1.20The [facility] AkronComment on above:Order Comment: No: Do not add to previous draw No collection time noted on specimen or requisition. The collection time recorded is the time of receipt in the lab.Performed By: #### [id number] #### [facility] [address] [place] [address], USAGFR/1.73 sq M.predicted among non-blacks MDRD (S/P/Bld) [Vol rate/Area]mL/min/{1.73_m2}Normal>60The [facility] Comment on above:Order Comment: No: Do not add to previous draw No collection time noted on specimen or requisition. The collection time recorded is the time of receipt in the lab.Result Comment: The [facility]'s estimated glomerular filtration rate (eGFR) will no [...] any one group of individuals.Performed By: #### [id number] #### [facility] [address] [place] [address], USAGlucose [Mass/Vol]278 mg/tIGagu54-655Uwu [facility] AkronComment on above:Order Comment: No: Do not add to previous draw No collection time noted on specimen or requisition. The collection time recorded is the time of receipt in the lab.Performed By: #### [id number] #### [facility] [address] [place] [address], USAPotassium [Moles/Vol]3.8 mmol/LNormal3.5-5.1The [facility] AkronComment on above:Order Comment: No: Do not add to previous draw No collection time noted on specimen or requisition. The collection time recorded is the time of receipt in the lab.Performed By: #### [id number] #### [facility] [address] [place] [address], USAProtein [Mass/Vol]5.3 g/dLLow6.0-8.3The [facility] AkronComment on above:Order Comment: No: Do not add to previous draw No collection time noted on specimen or requisition. The collection time recorded is the time of receipt in the lab.Performed By: #### [id number] #### [facility] [address] [place] [address], USASodium [Moles/Vol]133 mmol/ORrh224-471Ubl [facility] AkronComment on above:Order Comment: No: Do not add to previous draw No collection time noted on specimen or requisition. The collection time recorded is the time of receipt in the lab.Performed By: #### [id number] #### [facility] [address] [place] [address], USAUrea nitrogen [Mass/Vol]19 mg/dLNormal7-25The [facility] AkronComment on above:Order Comment: No: Do not add to previous draw No collection time noted on specimen or requisition. The collection time recorded is the time of receipt in the lab.Performed By: #### [id number] #### [address] [address], USACTA CHESTon 22-32-9455WDE CHESTUnMount [facility]. [facility] Department of Radiology [address] [place] [id number] Patient Name: DIANN PATEL : 1955 Sex: F Age: Race: White Pt. Location: [facility] Patient Status: E Ordered Date: [...] report. Electronically signed: Shane Baldwin. Transcribed by: [email or web address], User Resident: EDUARDO RUSS Electronically Signed by: SHANE BALDWIN @ 06/29/2022 01:00 AM I personally read this/these film(s) with this residentKettering Health TroyComment on above:Order Comment: Pulmonary Embolism HEMOGLOBIN A1Con 05-74-3810Xrqpnmj [Moles/Vol]111 mmol/LNormalThe [facility] AkronComment on above:Order Comment: No: Do not add to previous draw No collection time noted on specimen or requisition. The collection time recorded is the time of receipt in the lab.Performed By: #### [id number] #### [facility] [address] [place] [address], LOMPrO6a (Bld) [Mass fraction]5.5 %Normal4.0-6.0The [facility] AkronComment on above:Order Comment: No: Do not add to previous draw No collection time noted on specimen or requisition. The collection time recorded is the time of receipt in the lab.Performed By: #### [id number] #### [facility] [address] [place] [address], USALIPID PROFILEon 34-52-9870Ueqvlggtyac [Mass/Vol]223 mg/dL Stus379-503Dja [facility] AkronComment on above:Result Comment: CHOLESTEROL REFERENCE RANGE: 20 YEARS AND OLDER CARDIOVASCULAR RISK Less than 200 mg/dl Low Risk 200 to 239 mg/dl Borderline Risk 240 mg/dl and greater High RiskPerformed By: #### [id number] #### [facility] [address] [place] [address], USACholesterol in HDL [Mass/Vol]28 mg/wJPuzxdg08-95Hhp [facility] AkronComment on above:Result Comment: Slight variation in normal range could be due to gender and/or age. HDL CHOLESTEROL REFERENCE RANGE: 20 years and older Cardiovascular Risk > or =60 mg/dL Desirable 40 TO 59 mg/dL Low Risk <40 mg/dL High RiskPerformed By: #### [id number] #### [facility] [address] [place] [address], USACholesterol in LDL [Mass/Vol]138 mg/dLHigh0-130The [facility] AkronComment on above:Result Comment: LDL IS A CALCULATION LDL IS ONLY VALID IF THE TRIG IS LESS THAN 400.Performed By: #### [id number] #### [facility] [address] [facility] [place] [address], USACholesterol.total/Cholesterol in HDL [Mass ratio]8.0 {ratio}High.0-4.5The [facility] - AkronComment on above: Performed By: #### [id number] #### [facility] [address] [place] [address], USANON-HDL TJTVDLNHVNY669 mg/dLNormWilson Memorial HospitalComment on above:Performed By: #### [id number] #### [facility] [address] [place] [address], USATriglyceride [Mass/Vol]285 mg/hBGlid43-095Smt [facility] AkronComment on above:Result Comment: TRIGLYCERIDE REFERENCE RANGE: 20 YEARS AND OLDER CARDIOVASCULAR RISK LESS THAN 150 mg/dl LOW RISK 150 TO 199 mg/dl BORDERLINE RISK 200 mg/dl AND GREATER HIGH RISKPerformed By: #### [id number] #### [facility] [address] [place] [address], USAVLDL CHOL57 mg/dLHigh0-40[place] Valley Health SystemComment on above:Performed By: #### 42506 #### [facility] [address] [place] [address], USAPOC GLUCOSE LABon 84-58-7799Ohfqsqo [Mass/Vol]190 mg/dLHigh 70-100The [facility] AkronComment on above:Performed By: #### [id number] #### [facility] [address] [place] [address], USAGlucose [Mass/Vol]256 mg/tJWfbg32-424Oml [facility] AkronComment on above:Performed By: #### [id number] #### [facility] [address] [place] [address], USAGlucose [Mass/Vol]444 mg/pNSplz56-175Zuh [facility] AkronComment on above:Performed By: #### 60429, 25115, [id number] #### [facility] [address] [place] [address], USAGlucose [Mass/Vol]304 mg/xONblk40-701Cmx [facility] AkronComment on above:Performed By: #### [id number], 09597, 83900 #### [facility] [address] [facility] [place] [address], [facility]PRE[facility]ALTH CENTERPO SARS COV2 ANTIGEN NEGATIVEon 50-52-9078PLR SARS COV2 ANTIGEN NEGNegativeNormalNEGATIVEThe [facility] - AkronComment on above:Result Comment: Negative results should be [...] antigen from SARS-CoV-2 in direct nasopharyngeal swab (FAMILY MEDICINE CHAIR) specimens from individuals who are suspected of [...] Compliance, or Certificate of Accreditation.Performed By: #### [id number] #### [facility] [address] [facility] [place] [address], USATROPONIN-Ion 32-88-1645Tpuqiiwi I.cardiac [Mass/Vol]1.52 ng/mLCritically high0.00-0.04The [facility] AkronComment on above:Order Comment: No: Do not add to previous draw No collection time noted on specimen or requisition. The collection time recorded is the time of receipt in the lab.Result Comment: M-PREVIOUS CRITICAL RESULT REFERENCE RANGES: 0.00 - 0.04 ng/ml NORMAL 0.05 - 0.50 ng/ml INDETERMINATE > 0.50 ng/ml CONSISTENT WITH AN M.I.Performed By: #### [id number] #### [facility] [address] [place] [address], USATroponin I.cardiac [Mass/Vol]1.77 ng/mLCritically high 0.00-0.04The [facility] AkronComment on above:Order Comment: No: Do not add [...] ng/ml CONSISTENT WITH AN M.I.Performed By: #### [id number] #### [facility] [address] [facility] [address], USATSH3 WITH REFLEX FT4on 79-84-7196NTF 3RD GENERATION1.96 uIU/mLNormal0.34-5.60The [facility] AkronComment on above: Performed By: #### [id number] #### [facility] [address] [facility] [address], USAUFH HEPARIN ASSAYon 59-62-8045APZYSEKJGPPOLL HEPARIN0.15 IU/mLCritically low0.30-0.70The [facility] AkronComment on above:Result Comment: RESULTS CHECKED AND CALLED. ACCURATELY READ BACK BY Isabela Shannon RN at 2220 PMW 06-29-22. Rivaroxaban and Apixaban will interfere with the anti Xa assay used to monitor UFH and LMWH.Performed By: #### 72441 #### [facility] [address] [address], USAUNFRACTIONATED HEPARIN<0.10Critically low0.30-0.70The [facility] AkronComment on above:Result Comment: Result checked and called. Accurately read back by JENNIFER WILLINGHAM RN @1404 06/29/22 Rivaroxaban and Apixaban will interfere with the anti Xa assay used to monitor UFH and LMWH.Performed By: #### [id number] #### [facility] [address] [facility] [place] [address], USAUNFRACTIONATED HEPARIN<0.10Critically low0.30-0.70The [facility] AkronComment on above:Result Comment: RESULTS CHECKED AND CALLED. ACCURATELY READ BACK BY REG KILGORE RN @ 0531 Rivaroxaban and Apixaban will interfere with the anti Xa assay used to monitor UFH and LMWH.Performed By: #### [id number] #### [facility] [address] [facility] [place] [address], Z[facility] COMPREHENSIVE HEALTH CENTERAPTTon 71-24-2578rJOI Coag (Bld) [Time]32.0 sNormal 25.0-35.0The [facility] AkronComment on above:Result Comment: ALL RESULTS MUST BE [...] BE USED FOR THIS PURPOSE.Performed By: #### [id number] #### [facility] [address] [facility] [place] [address], Z[facility] COMPREHENSIVE HEALTH CENTERBNPon 79-47-1305Wazoiwazxay peptide B (Bld) [Mass/Vol] 3794.0 pg/mLCritically high<=900.0The [facility] HospitalComment on above: Performed By: #### CBC #### [facility] [address] [place] [address] Dr. Sruthi EVANGELISTA ADMITon 13-30-0410IL [Catalytic activity/Vol]51 U/L Rtjqpn35-304Sxg [facility] HospitalComment on above:Performed By: #### CBC #### [facility] [address] [place] [address] [address] Sruthi Bernardo.MB [Mass/Vol]2.23 ng/mLNormal<=3.60The [facility] Comment on above:Performed By: #### CBC #### [facility] [address] [place] [address] [address] Sruthi CoatsOP705.8 pg/mLCritically high4.0-51.3TCoshocton Regional Medical Center Comment on above:Result Comment: CUT-OFF POINTS HAVE BEEN ESTABLISHED BASED ON THE FOURTH UNIVERSAL DEFINITIONS OF MYOCARDIAL INFARCTION. THE UPPER REFERENCE LIMIT (URL) OF TROPONIN, DEFINED THE 99TH PERCENTILE OF cTnI DISTRIBUTION IN A REFERENCE POPULATION, HAS BEEN CONFIRMED THE DECISION THRESHOLD FOR SD DIAGNOSIS.Performed By: #### CBC #### [facility] [address] [place] [address] [address] Sruthi Jo73 ng/mLNormal9-82Holzer Health SystemComment on above: Performed By: #### CBC #### [facility] [address] [place] [address] [address] Sruthi Fisher W MANUAL DIFFon 10-14-3991KAAJZJSX LYMPH #NormalHolzer Health SystemComment on above:Performed By: #### CBCMAN ####[facility] Wxxcojeas[address] [place], [place] [address]Dr. Yilan ChangATYPICAL LYMPH %NormalHolzer Health SystemComment on above:Performed By: #### CBCMAN ####[facility] Lgxmy[address]flb[address] [place] [address]Dr. Yilan ChangBAND #0.1 103/ulNormal0.0-0.3TCoshocton Regional Medical CenterComment on above: Performed By: #### CBCMAN ####[facility] [address]rf[address]ix[address] [place] [address]Dr. Yilan ChangBAND %1 %Normal0-5The [facility] Comment on above:Performed By: #### CBCMAN ####[facility] Ofuafhjtqv[address] [place], [place] [address]Dr. Yilan ChangBASOM #0.00 103/ulNormal 0.00-0.10The [facility] Board[facility] HospitalComment on above:Performed By: #### CBCMAN ####[facility] Dqbyjvct[address] [place], [place] [address]Dr. Yilan ChangBASOM %0.0 %Critically low0.2-2.0The [facility] Board[facility] HospitalComment on above:Performed By: #### CBCMAN ####[facility] [address]umhh[address] [place] [address]Dr. Yilan ChangBLAST #NormalThe [facility] Comment on above:Performed By: #### CBCMAN ####[facility] [address]idchmwuf[address] [place] [address]Dr. Yilan ChangBLAST %NormalThe [facility] HospitalComment on above:Performed By: #### CBCMAN ####[facility] Iuqvzoacoh[address] [place], [place] [address]Dr. Yilan ChangCORRECTED WBC Normal4.0-11.0The [facility] Boardman HospitalComment on above:Performed By: #### CBCMAN ####[facility] [address]shgstnn[address] [place], [place] [address]Dr. Yilan ChangEOS #0.13 103/ulNormal0.00-0.70The [facility] HospitalComment on above: Performed By: #### CBCMAN ####[facility] Dqbphtmfof[address] [place], [place] [address]Dr. Yilan ChangEOS%1.0 %Normal0.9-7.0The [facility] Board[facility] HospitalComment on above:Performed By: #### CBCMAN ####[facility] Bbscnjnnvt[address] [place], [place] [address]Dr. Yilan AhbmuKAL29.8 % Vgiaxd44.0-48.0The [facility] HospitalComment on above:Performed By: #### CBCMAN ####[facility] Pnmbsoqeim[address] [place], [place] [address]Dr. Yilan UazwdFKO80.5 g/jhIwutpg09.0-16.0The [facility] HospitalComment on above: Performed By: #### CBCMAN ####[facility] Valceaofjf[address] [place], [place] [address]Dr. Yilan ChangLYMPHM #1.51 103/ulNormal1.20-3.80The [facility] HospitalComment on above:Performed By: #### CBCMAN ####[facility] [address] [place] [id number]. Sruthi Arechiga LYMPHM%12.0 %Critically low20.5-60.0The [facility] HospitalComment on above: Performed By: #### CBCJOSE ANGEL ####[facility] Ptamzzkcpy[address] [place] [address]Dr. Sruthi ArechigaMCH27.2 sqHokkhm35.7-34.0The [facility]age HospitalComment on above:Performed By: #### CBCJOSE ANGEL ####[facility] Izoooljnkn[address] [place] [address]Dr. Sruthi ArechigaMCHC32.2 g/dl Swttyc79.9-35.2The [facility] HospitalComment on above:Performed By: #### CBCJOSE ANGEL ####[facility] Nvxkbnxefm[address] [place], [place] [address]Dr. Sruthi ArechigaMCV84.3 cBCcppin95.0-99.0The [facility] HospitalComment on above: Performed By: #### CBCJOSE ANGEL ####[facility] Oxenazwxqi97[address] [place], [place] [address]Dr. Yilan ChangMETAMYELOCYTE #NormalThe [facility] Board[facility] HospitalComment on above:Performed By: #### CBCJOSE ANGEL ####[facility] Oamwvhtioa[address] [place], [place] [address]Dr. Kamalalan ChangMETAMYELOCYTE %NormalThe [facility] HospitalComment on above:Performed By: #### CBCJOSE ANGEL ####[facility] Xjzfdqqduk[address] [place], [place] [address]Dr. Sruthi ChangMONOM#1.64 103/ulCritically high0.30-0.80The [facility] HospitalComment on above:Performed By: #### CBCJOSE ANGEL ####[facility] Ultoqnqlhn[address] [place], [place] [address]Dr. Sruthi ArechigaMONOM%13.0 %Critically high 1.7-12.0The [facility] HospitalComment on above:Performed By: #### CBCJOSE ANGEL ####[facility] Flgjtjgljs[address] [place], [place] [address]Dr. Kamalalan CyqrrTFD71.7 fLNormal9.5-13.5The [facility] HospitalComment on above: Performed By: #### CBCJOSE ANGEL ####[facility] [address]izrlwza[address] [place] [id number]. Yilan ChangMYELOCYTE #NormalThe [facility] Comment on above:Performed By: #### CBCJOSE ANGEL ####[facility] Odmjpaaani[address] [place] [address]Dr. Yilan ChangMYELOCYTE %NormalThe [facility]age HospitalComment on above:Performed By: #### CBCJOSE ANGEL ####[facility] Gwccipxjug[address] [place] [address]Dr. Yilan ChangNRBCNormalThe [facility] Board[facility] HospitalComment on above:Performed By: #### CBCJOSE ANGEL ####[facility] Xwbyddvdgn[address] [place], [place] [address]Dr. Yilan ChangPLT 237 103/meAjpekv561-422Weg [facility] HospitalComment on above:Performed By: #### ISAAK ####[facility] Zxbbfvusxx[address] [place], [place] [address]Dr. Yilan ChangRBC4.60 106/ulNormal4.20-5.40The [facility] HospitalComment on above:Performed By: #### ISAAK ####[facility] V[address]es[address] [place], [place] [address]Dr. Yilan FlivcCAT33.2 %Pbbelm79.0-15.0The [facility] HospitalComment on above:Performed By: #### CBCJOSE ANGEL ####[facility] Nmojtksub[address] [place], [place] [address]Dr. Yilan ChangSEG #9.20 103/ulCritically high1.40-6.50The [facility] HospitalComment on above:Performed By: #### CBCJOSE ANGEL ####[facility] Sqaysfbk[address] [place], [place] [address]Dr. Yilan ChangSEG %73.0 %Tapjqs54.0-75.0The [facility] HospitalComment on above:Performed By: #### CBCJOSE ANGEL ####[facility] Jjjarseaap[address] [place], [place] [address]Dr. Yilan WkrieXYH56.6 103/ulCritically high 4.0-11.0The [facility] HospitalComment on above:Performed By: #### CBCMAN ####[facility] [address] [id number]. Sruthi ArechigaCovid-19 PCR (CVDTB)on 48-16-3258YTTP-CoV-2 (COVID-19) RNA KOLE+probe Ql (Unsp spec)Not detectedNormalNOT DETECTEDThe [facility] HospitalComment on above:Result Comment: When diagnostic testing [...] for this test is supported by the [place] of Health and Human Service's declaration that [...] no longer be used).Performed By: #### CVDTB ####[facility] [address] [id number] ArechigaLIPASEon 84-33-9802Mfdhvw [Catalytic activity/Vol]75.0 U/L Svvkwu00.0-393.0The [facility] HospitalComment on above:Performed By: #### CBC #### [facility] [address] [address] [address] Sruthi ArechigaPOINT OF CARE GLUCOSEon 06-92-6747Szeorte [Mass/Vol]351 mg/dL Critically pmwp43-935Hji [facility] HospitalComment on above:Performed By: #### CVDTBH #### [facility] [address] [place] [address] Dr. Sruthi ArechigaPROF 14(COMP METB)on 45-62-9560Khzglpt [Mass/Vol]2.5 g/dL Critically low3.4-5.0The [facility] HospitalComment on above:Performed By: #### CMP #### [facility] [address] [place] [address] Dr. Sruthi ArechigaAlbumin/Globulin [Mass ratio]0.6 {ratio}NormalThe [facility] HospitalComment on above:Performed By: #### CMP #### [facility] [address] [place] [address] Dr. Sruthi GallowayP [Catalytic activity/Vol]132 U/LCritically mtxw03-522Nfn [facility] HospitalComment on above:Performed By: #### CMP #### [facility] [address] [place] [address] Dr. Sruthi GallowayT [Catalytic activity/Vol]32 U/JRvkqbr13-17Tty [facility] HospitalComment on above:Performed By: #### CMP #### [facility] [address] [place] [address] Dr. Sruthi Corral gap [Moles/Vol]19.2 mmol/LNormalThe [facility] Comment on above:Performed By: #### CMP #### [facility] [address] [place] [address] Dr. Sruthi ArechigaAST [Catalytic activity/Vol]24 U/IUrpkwt29-81Obt [facility] HospitalComment on above:Performed By: #### CMP #### [facility] [address] [place] [address] Dr. Sruthi ArechigaBilirubin [Mass/Vol]0.5 mg/dLNormal0.2-1.0The [facility] Comment on above:Performed By: #### CMP #### [facility] [address] [place] [address] Dr. Sruthi ArechigaCalcium [Mass/Vol]9.5 mg/dLNormal8.5-10.1The [facility] Comment on above:Performed By: #### CMP #### [facility] [address] [place] [address] Dr. Sruthi ArechigaChloride [Moles/Vol]95 mmol/LCritically uyw12-753Izo [facility] HospitalComment on above:Performed By: #### CMP #### [facility] [address] [address] [address] Sruthi ArechigaCO2 [Moles/Vol]20.3 mmol/LCritically low21.0-32.0The [facility] HospitalComment on above:Performed By: #### CMP #### [facility] [address] [address] [address] Sruthi ArechigaCreatinine [Mass/Vol]0.78 mg/dLNormal0.55-1.02The [facility] HospitalComment on above:Performed By: #### CMP #### [facility] [address] [place] [address] Dr. Negro ChangEGFR-AF CYMRAES>60Normal>=60The [facility] HospitalComment on above:Performed By: #### CMP #### [facility] [address] [address] [address] Sruthi JoyGFR-NON AF CYMRAES>60Normal>=60The [facility] HospitalComment on above:Performed By: #### CMP #### [facility] [address] [address] [address] Sruthi ArechigaGlobulin (S) [Mass/Vol]4.3 g/dLNormalThe [facility] HospitalComment on above:Performed By: #### CMP #### [facility] [address] [address] [address] Sruthi ArechigaGlucose [Mass/Vol]389 mg/dLCritically ebut57-866Snw [facility] HospitalComment on above:Performed By: #### CMP #### [facility] [address] [address] [address] Sruthi ArechigaPotassium [Moles/Vol]3.5 mmol/LNormal3.5-5.1The [facility] Comment on above:Performed By: #### CMP #### [facility] [address] [address] [address] Sruthi ArechigaProtein [Mass/Vol]6.8 g/dLNormal6.4-8.2The [facility] Comment on above:Performed By: #### CMP #### [facility] [address] [address] [address] Sruthi ArechigaSodium [Moles/Vol]131 mmol/LCritically mgh796-080Jyp [facility] HospitalComment on above:Performed By: #### CMP #### [facility] [address] [place] [address] Dr. Sruthi Granger nitrogen [Mass/Vol]24.0 mg/dLCritically high7.0-18.0The [facility] HospitalComment on above:Performed By: #### CMP #### [facility] [address] [place] [address] Dr. Sruthi Granger nitrogen/Creatinine [Mass ratio]30.8 mg/mgNormalThe [facility] HospitalComment on above:Performed By: #### CMP #### [facility] [address] [place] [address] Dr. Sruthi ArechigaPROTHROMBIN TIMEon 38-59-8362JLT Coag (PPP) [Relative time]1.01 {INR}Normal0.91-1.16The [facility]ronComment on above: Result Comment: ACCCP RECOMMENDED INR [...] OPTIMAL THERAPEUTIC RANGE. CHEST 1995;108:231S-246S.Performed By: #### [id number] #### [facility] [address] [place] [address], [place]APT Coag (PPP) [Time]13.3 wHdghho09.3-14.8The [facility] AkronComment on above:Result Comment: ALL RESULTS MUST BE INTERPRETED WITH RESPECT TO BLOOD DRAWING ARTIFACT OR DILUTION ERROR OF ANTICOAGULANT AT THE TIME OF SAMPLING.Performed By: #### [id number] #### [facility] [address] [place] [address], USAPROTIMEon 59-40-0231PPQ Coag (PPP) [Relative time]0.98 {INR}NormalHolzer Health SystemComment on above:Performed By: #### CVDTBH #### [facility] [address] [place] [address] Dr. Sruthi Miller [facility], IncComment on above:Result Comment: DESIRED INR: 2.0 - 3.0 CONDITIONS NOT LISTED BELOW 2.5 - 3.5 FOR PROSTHETIC HEART VALVE REPLACEMENT 2.5 - 3.5 RECURRENT THROMBOSIS Performed By: #### CVDTBH #### [facility] [address] [place] [address] Dr. Sruthi Scott Coag (PPP) [Time]10.6 sNormal9.0-11.6The [facility] Comment on above:Performed By: #### CVDTBH #### [facility] [address] [place] [address] Dr. Sruthi Overton 82-62-8223kNCN Coag (Bld) [Time]32.5 pEgjwyt20.3-36.2[facility] Health SystemComment on above:Performed By: #### CVDTBH #### [facility] [address] [place] [address] Dr. Sruthi Tucker, HIGH SENSITIVITYon 69-56-5050RDPCNQ8043.1 pg/mL Critically high4.0-51.3The [facility] HospitalComment on above:Result Comment: CUT-OFF POINTS HAVE BEEN ESTABLISHED BASED ON THE FOURTH UNIVERSAL DEFINITIONS OF MYOCARDIAL INFARCTION. THE UPPER REFERENCE LIMIT (URL) OF TROPONIN, DEFINED THE 99TH PERCENTILE OF cTnI DISTRIBUTION IN A REFERENCE POPULATION, HAS BEEN CONFIRMED THE DECISION THRESHOLD FOR SD DIAGNOSIS.Performed By: #### HSTROPN #### [facility] [address] [place], [place] [address] Dr. Sruthi AbreuTROP1816.7 pg/mLCritically high4.0-51.3The [facility] Comment on above:Result Comment: CUT-OFF POINTS HAVE BEEN ESTABLISHED BASED ON THE FOURTH UNIVERSAL DEFINITIONS OF MYOCARDIAL INFARCTION. THE UPPER REFERENCE LIMIT (URL) OF TROPONIN, DEFINED THE 99TH PERCENTILE OF cTnI DISTRIBUTION IN A REFERENCE POPULATION, HAS BEEN CONFIRMED THE DECISION THRESHOLD FOR SD DIAGNOSIS.Performed By: #### CBC #### [facility] [address] [place], [place] [address] Dr. Sruthi Moses 53-57-1622BWS8.865 uIU/mLCritically high0.358-3.740The [facility] HospitalComment on above:Performed By: #### TSH, LIPA, BNP, CMADM ####[facility] [address] [place], [place] [address]Dr. Sruthi Mercer HEPARIN ASSAYon 19-67-7714CIIQMYHPRUYDMD HEPARIN<0.10Critically low0.30-0.70The [facility] - AkronComment on above:Order Comment: No: Do not add [...] to monitor UFH and LMWH.Performed By: #### [id number] #### [facility] [address] [place] [address], USAXR CHEST 1 Von 54-30-0601ZN CHEST 1 VEXAMINATION: XR CHEST 1 V [...] Electronically authenticated by: GERMAIN COY Date: 2022 06:58[facility] Vital Signs Date TimeVital SignValuePerforming NneewgpisNetskoup61-30-0440 10:40-0500Body jgyyne335.5 cmSthomas Cedeño FAMILY MEDICINE CHAIR Work Phone: NOHarry [facility]. [facility]' HospitalIzbpqalskt51-72-3491 10:40-0500Body mass index (BMI) [Ratio]31.78 kg/f1IbyaspJohnna Cedeño FAMILY MEDICINE CHAIR Work Phone: [facility] HospitalUotwjhvhfk17-43-2315 10:40-0500Body qnzgyx65.83 kgJohnna Cedeño FAMILY MEDICINE CHAIR Work Phone: NOHarry [facility]. [facility] HospitalSjmwaewyvk90-11-9692 10:40-0500Diastolic blood nakxydvu17 mm[Hg]Johnna Cedeño FAMILY MEDICINE CHAIR Work Phone: NOHarry [facility]. [facility] HospitalXsovqkxrlk05-11-9498 10:40-0500Heart rate67 /min Johnna Cedeño FAMILY MEDICINE CHAIR Work Phone: NO[facility] HospitalMbdwltmosx94-51-4342 10:40-0500Respiratory rate16 /minSthomas Cedeño FAMILY MEDICINE CHAIR Work Phone: [address] [address]Tehxdjrkdh81-66-5618 10:40-9677LsV6% (BldA) [Mass fraction]94 %Johnna Cedeño FAMILY MEDICINE CHAIR Work Phone: [address] [address]Nvqbbynwnf25-00-4392 10:40-0500Systolic blood mm[Hg]Johnna Cedeño FAMILY MEDICINE CHAIR Work Phone: NOHarry [facility]' HospitalWxaxlamtry28-67-4689 15:10-0500Body pmyzzc392.5 cmAlexis Gilmore DPM Work Phone: NO[facility] HospitalQzpkylnqft53-21-4614 15:10-0500Body mass index (BMI) [Ratio]32.01 kg/w2DvpegkteAlexis Gilmore DPM Work Phone: NO[facility] HospitalRopjtohsoa40-84-4046 15:10-0500Body .38 kgAlexis Gilmore DPM Work Phone: NO[facility] HospitalCsajjkwgeg58-39-5956 15:10-0500Respiratory rate18 /minAlxeis Gilmore DPM Work Phone: NO[facility]' HospitalLqquypguzg80-06-3044 11:13-0400Body ahiqft614.5 cmSthomas Cedeño FAMILY MEDICINE CHAIR Work Phone: NO[facility] HospitalWasrrtqqra98-97-4176 11:13-0400Body mass index (BMI) [Ratio]32.01 kg/r0KqsufaJohnna Cedeño FAMILY MEDICINE CHAIR Work Phone: NO[facility]' HospitalVlezvtqlbg64-34-8101 11:13-0400Body temperature 97.81 [degF]Johnna Cedeño FAMILY MEDICINE CHAIR Work Phone: NO[facility]. [facility] HospitalKaihncxvou43-56-8673 11:13-0400Body oehhfx92.38 kgJohnna Cedeño FAMILY MEDICINE CHAIR Work Phone: NOHarry [facility]. [facility] HospitalXohijykgcg28-84-2992 11:13-0400Diastolic blood ydxrhfej21 mm[Hg]Johnna Cedeño FAMILY MEDICINE CHAIR Work Phone: NO[facility]' HospitalJxzjdfxtqy47-02-3347 11:13-0400Heart rate61 /min Johnna Cedeño FAMILY MEDICINE CHAIR Work Phone: NO[facility]' HospitalDwatxbdvcl90-78-5781 11:13-0400Respiratory rate16 /minSthomas Cedeño FAMILY MEDICINE CHAIR Work Phone: NO[facility]. [facility]' HospitalUlrlsfhtkz92-13-3416 11:13-9301HcY7% (BldA) [Mass fraction]96 %Johnna Cedeño FAMILY MEDICINE CHAIR Work Phone: NOHarry [facility]. [facility]' HospitalFqydmxytdp16-55-6134 11:13-0400Systolic blood ilntrvpx841 mm[Hg]Johnna Cedeño FAMILY MEDICINE CHAIR Work Phone: NOHarry [facility]. [facility]' HospitalFnbniszmba03-01-8437 08:15-0400Diastolic blood toixsrea39 mm[Hg]Agustni [facility]10-03-2025 08:15-0400Systolic blood lbvxkyul607 mm[Hg]Agustin [facility]09-18-2025 14:31-0400 Diastolic blood tinqnfyc30 mm[Hg][facility]-18-20[facility] 14:31-0400Heart rate87 /minStanikaer [facility]09-18-2025 14:31-0400Systolic blood lydicykj539 mm[Hg]Agustin [facility] 07-27-2025 14:01-0400Body okbjpj371.5 cmAlexis Dillon DPM Work Phone: [facility] HospitalYmxcohytvw76-49-4871 14:01-0400Body mass index (BMI) [Ratio]33.47 kg/o2NvlyqciuAlexis Gilmore DPM Work Phone: [facility] HospitalOaxnzaphul87-49-2158 14:01-0400Body lpmyga53.01 kgNicjessica Gilmore DPM Work Phone: [facility] HospitalUjknwmjxxr21-07-1894 14:01-0400Respiratory rate16 /minAlexis Dillon DPM Work Phone: [facility] HospitalKwyurosonj93-91-6315 14:00-0400Diastolic blood yvifvzyg33 mm[Hg]Champ Bell II Work Phone: [facility]09-12-2025 14:00-0400 Heart rate64 /Tierael Bell II Work Phone: 1(783)594-[address] [place], [place] 1478309-12-2025 14:00-0400 Respiratory rate16 /minDdarvinel Bell II Work Phone: 1(398)145-[address] [place], [place] 1070309-12-2025 14:00-0400 SaO2% (BldA) [Mass fraction]96 %Champ Bell II Work Phone: [facility]09-12-2025 14:00-0400 Systolic blood lwwhtysw889 mm[Hg]Champ Bell II Work Phone: 1(531)531-[address] [place], [place] 1478309-12-2025 10:41-0400 Body eyillx465.48 cmDakathi Bell II Work Phone: [facility]09-12-2025 10:41-0400 Body veefujgemyq62.9 [degF]Champ Bell II Work Phone: 1(419)867-[address] [place], [place] 1478309-12-2025 10:41-0400 Body gyvors67.6 kgDakathi Bell II Work Phone: 1(419)284-[address] [place], [place] 1478309-10-2025 11:03-0400 Body .5 cmSthomas Cedeño FAMILY MEDICINE CHAIR Work Phone: [facility] HospitalFswjwreprk62-77-5647 11:03-0400Body mass index (BMI) [Ratio]33.47 kg/j5FesqmrJohnna Cedeño FAMILY MEDICINE CHAIR Work Phone: [facility] HospitalCzoizynaau76-08-9133 11:03-0400Body .01 kgJohnna Cedeño FAMILY MEDICINE CHAIR Work Phone: [facility] HospitalErjcnifmrn53-02-5048 11:03-0400Diastolic blood xosvdtvu66 mm[Hg]Johnna Cedeño FAMILY MEDICINE CHAIR Work Phone: NOHarry [facility]. [facility]' HospitalHtqqtfescf57-64-7980 11:03-0400Heart rate67 /min Johnna Cedeño FAMILY MEDICINE CHAIR Work Phone: [facility] HospitalOvvzsvdzbe96-49-2760 11:03-0400Respiratory rate16 /minSthomas Cedeño FAMILY MEDICINE CHAIR Work Phone: [facility] HospitalSojzziebxj20-12-5047 11:03-7256ApU4% (BldA) [Mass fraction]94 %Johnna Cedeño FAMILY MEDICINE CHAIR Work Phone: NOHarry [facility]. [facility]' HospitalDtbnwkpbzy71-86-8572 11:03-0400Systolic blood ievgjndt886 mm[Hg]Johnna Cedeño FAMILY MEDICINE CHAIR Work Phone: NOHarry [facility]. [facility]' HospitalItlfwofbeo46-22-6172 11:15-0400Body pumznd917.5 cmAlexis Gilmore DPM Work Phone: [phone] [facility]. [facility]' HospitalGklgoafjop12-97-4661 11:15-0400Body mass index (BMI) [Ratio]31.46 kg/l1PvmyciazAlexis Gilmore DPM Work Phone: [facility] HospitalWkhzyabhzx63-00-7440 11:15-0400Body nnohvn72.02 kgAlexis Gilmore DPM Work Phone: [facility] HospitalFntvjhgwhg18-30-3075 11:15-0400Respiratory rate16 /minAlexis Gilmore DPM Work Phone: [facility] HospitalMyoygcudpa73-44-7334 14:13-0400Body .5 cmAlexis Gilmore DPM Work Phone: [facility] HospitalAegigmdyqv22-87-2784 14:13-0400Body mass index (BMI) [Ratio]31.46 kg/t4LosixoroAlexis Gilmore DPM Work Phone: [facility] HospitalLuimihoama76-03-4358 14:13-0400Body gqhmaj19.02 kgAlexis Gilmore DPM Work Phone: [facility] HospitalMxjbhstcea40-14-8563 14:13-0400Respiratory rate16 /Efra Gilmore DPM Work Phone: [facility] HospitalRdktcitasj23-49-8793 11:25-0400Diastolic blood zuvbfsuk83 mm[Hg]Champ Bell II Work Phone: 1(484)446-[address] [place], [place] 1478307-31-2025 11:25-0400 Heart rate63 /Britney Bell II Work Phone: 1(682)138-[address] [place], [place] 1478307-31-2025 11:25-0400 Respiratory rate16 /Britney Bell II Work Phone: [facility]07-31-2025 11:25-0400 SaO2% (BldA) [Mass fraction]95 %Champ Bell II Work Phone: [facility]07-31-2025 11:25-0400 Systolic blood ceckeuxy961 mm[Hg]Champ Bell II Work Phone: 1(972)408-[address] [place], [place] 1478307-31-2025 10:55-0400 Body vgnrgjluvih93.1 [degF]Champ Bell II Work Phone: [facility]07-31-2025 08:55-0400 Body kpdooc144.48 cmDakathi Bell II Work Phone: [facility]07-31-2025 08:55-0400 Body mwhiqr67.92 kgDakathi Bell II Work Phone: 1(883)837-[address] [place], [place] 1478307-16-2025 11:02-0400 Body zadtgv213.5 Job Cronin MD Work Phone: [facility] HospitalGskvddasqo10-53-9968 11:02-0400Body mass index (BMI) [Ratio]31.46 kg/o3GwvryoDale Cronin MD Work Phone: [facility] HospitalHwhnuozszj76-62-2310 11:02-0400Body .02 kgDale Cronin MD Work Phone: [facility] HospitalPzpywlgfnp27-38-7794 11:02-0400Diastolic blood smxotwus51 mm[Hg]Dale Cronin MD Work Phone: [facility] HospitalFzseoetrxe83-52-3332 11:02-0400Systolic blood zcfnytcy750 mm[Hg]Dale Cronin MD Work Phone: [facility] HospitalRglcgpkwtw32-03-9112 13:47-0400Body ewxxhm334.5 Bunny Cedeño FAMILY MEDICINE CHAIR Work Phone: [facility] HospitalRbkrvyyekh66-51-7985 13:47-0400Body mass index (BMI) [Ratio]32.19 kg/w5LnznddJohnna Cedeño FAMILY MEDICINE CHAIR Work Phone: [facility] HospitalFrpyihnfex51-19-1565 13:47-0400Body ljnuwp73.83 kgJohnna Cedeño FAMILY MEDICINE CHAIR Work Phone: [facility] HospitalYcifqbajyq56-06-5955 13:47-0400Diastolic blood mm[Hg]Johnna Cedeño FAMILY MEDICINE CHAIR Work Phone: [facility] HospitalXphsesmfvt92-12-4048 13:47-0400Heart rate69 /min Johnna Cedeño FAMILY MEDICINE CHAIR Work Phone: NO[facility]' HospitalPpdunkzzxd62-59-5554 13:47-0400Respiratory rate16 /minSthomas Cesar FAMILY MEDICINE CHAIR Work Phone: NO[facility]. [facility]' HospitalIcpsccriqs45-05-6172 13:47-8208ZcW3% (BldA) [Mass fraction]95 %Johnna Cedeño FAMILY MEDICINE CHAIR Work Phone: NOHarry [facility]. [facility]' HospitalMnpehsjfah70-95-3366 13:47-0400Systolic blood bbkizqyi884 mm[Hg]Johnna Cedeño FAMILY MEDICINE CHAIR Work Phone: NOHarry [facility]. [facility]' HospitalKovjifnyco61-53-7973 14:34-0400Body vbelmd560.5 cmAlexis Gilmore DPM Work Phone: [facility] HospitalYgpivmwroa91-16-2591 14:34-0400Body mass index (BMI) [Ratio]31.64 kg/k6KshropsyAlexis Gilmore DPM Work Phone: [facility] HospitalUtvtixmxgb10-30-0602 14:34-0400Body ikvgnl16.47 kgAlexis Gilmore DPM Work Phone: [facility] HospitalZopfzkzvby12-61-0715 14:34-0400Respiratory rate16 /minAlexis Gilmore DPM Work Phone: [facility] HospitalGmrbjyuvue17-95-1887 11:02-0400Body jtxdji547.5 Lalitajenny Camuy FAMILY MEDICINE CHAIR Work Phone: [facility] HospitalLvaufezifc28-37-2920 11:02-0400Body mass index (BMI) [Ratio]31.79 kg/l8QdukqlJohnna Castanedavely FAMILY MEDICINE CHAIR Work Phone: NO[facility]' HospitalCswcusgwcc43-05-0171 11:02-0400Body pvdild29.83 kgJohnna Cedeño FAMILY MEDICINE CHAIR Work Phone: NOHarry [facility]. [facility]' HospitalSctbmbwqzu78-65-9627 11:02-0400Diastolic blood mm[Hg]Johnna Cedeño FAMILY MEDICINE CHAIR Work Phone: NOHarry [facility]. [facility]' HospitalDlbdeyzjxw27-37-0757 11:02-0400Heart rate61 /min Johnna Cedeño FAMILY MEDICINE CHAIR Work Phone: 1(419)483-[address] [place], [place] [address]Npegvynzaq06-77-3879 11:02-0400Respiratory rate16 /Roshni Cedeño FAMILY MEDICINE CHAIR Work Phone: 1(792)[facility] [place], [place] [address]Egvhglynwy38-05-7797 11:02-4120MjJ7% (BldA) [Mass fraction]93 %Johnna Cedeño FAMILY MEDICINE CHAIR Work Phone: 1(728)[facility]-8008[facility] HospitalOdgcvftlpm25-58-0328 11:02-0400Systolic blood steltuqq941 mm[Hg]Johnna Cedeño FAMILY MEDICINE CHAIR Work Phone: 1(211)[address] [place], [place] 6125104-09-2025 12:00-0400Diastolic blood nbxhagel95 mm[Hg]Champ Bell II Work Phone: 1(948)[address] [place], [place] 1705504-09-2025 12:00-0400 Heart rate67 /minDaniel Bell II Work Phone: 1(312)[address] [place], [place] 1705504-09-2025 12:00-0400 Respiratory rate16 /minDaniel Bell II Work Phone: 1(031)[address] [place], [place] 1705504-09-2025 12:00-0400 SaO2% (BldA) [Mass fraction]93 %Champ Bell II Work Phone: 1(488)[address] [place], [place] 1705504-09-2025 12:00-0400 Systolic blood mm[Hg]Champ Bell II Work Phone: 1(647)[address] [place], [place] 1705504-09-2025 11:49-0400 Body ofzggw061.48 cmDaniel Bell II Work Phone: 1(889)[address] [place], [place] 1705504-09-2025 07:53-0400 Body ohtrjjmtrsc18 [degF]Champ Bell II Work Phone: 1(620)[address] [place], [place] 1705504-09-2025 06:00-0400 Body oividc34.7 kgDaniel Bell II Work Phone: 1(821)[address] [place], [place] 1705504-08-2025 20:16-0400 Diastolic blood mm[Hg]Champ Bell II Work Phone: 1(888)[address] [place], [place] 1705504-08-2025 20:16-0400 Heart rate56 /Britney Bell II Work Phone: 1(638)799-[address] [place], [place] 1070304-08-2025 20:16-0400 Respiratory rate16 /Britney Bell II Work Phone: 1(116)[address]04-08-2025 20:16-0400 SaO2% (BldA) [Mass fraction]93 %Champ Bell II Work Phone: 1(568)344-[address] [place], [place] 1070304-08-2025 20:16-0400 Systolic blood qcngqtko193 mm[Hg]Champ Bell II Work Phone: 1(173)[address]04-08-2025 13:36-0400 Body lavwmw541.48 cmDakathi Bell II Work Phone: 1(773)[address]04-08-2025 13:36-0400 Body .5 [degF]Champ Bell II Work Phone: 1(512)[address]04-08-2025 13:36-0400 Body dumwnd53.2 kgDakathi Bell II Work Phone: 1(510)[address]02-26-2025 13:49-0500 Diastolic blood gvdevsai46 mm[Hg]Trace Ramírez MD, PhDP [facility] 01-05-2025 13:49-0500Systolic blood ffzvgikb089 mm[Hg]Trace Ramírez MD, PhD [facility] Xkkhoidyuj70-75-5849 13:19-0500Body vwfojn771.5 Bunny Cedeño FAMILY MEDICINE CHAIR Work Phone: [facility] HospitalLvihreeerz80-89-3036 13:19-0500Body mass index (BMI) [Ratio]32.15 kg/w1GqdgbuJohnna Cedeño FAMILY MEDICINE CHAIR Work Phone: [phone] S. Truman Memorial Veterans' HospitalDfutuzheoi14-23-5888 13:19-0500Body rncqea24.74 kgJohnna Cedeño FAMILY MEDICINE CHAIR Work Phone: [facility] HospitalWdsnrgrfln39-05-9382 13:19-0500Diastolic blood mm[Hg]Johnna Cedeño FAMILY MEDICINE CHAIR Work Phone: 1(419)483-[address] [place], [place] [address]Yfbwiicqwv63-79-4035 13:19-0500Heart rate65 /min Johnna Cedeño FAMILY MEDICINE CHAIR Work Phone: [facility] HospitalRmtjlkrlzf46-54-5498 13:19-0500Respiratory rate16 /minSjenny Cedeño FAMILY MEDICINE CHAIR Work Phone: [facility] HospitalIlkpsuqcvq14-65-6055 13:19-6256TpB7% (BldA) [Mass fraction]95 %Johnna Cedeño FAMILY MEDICINE CHAIR Work Phone: [facility] HospitalKhbznlfaiy37-35-1072 13:19-0500Systolic blood iumjchyp373 mm[Hg]Johnnajenny Cedeño FAMILY MEDICINE CHAIR Work Phone: [facility] HospitalJlrcwrhkau71-10-6797 10:57-0500Body ymyisy399.5 cmNicholas Brown DPM Work Phone: 1(542)[phone] [place], [place] [address]Rktpkxwolj92-51-9198 10:57-0500Body mass index (BMI) [Ratio]31.46 kg/y6Egcjcoqj Brown DPM Work Phone: [phone])[phone] [place], [place] [address]Cghgnmksal20-32-3255 10:57-0500Body aekzgj31.02 kgNicholas Brown DPM Work Phone: [phone])892-[address] [place], [place] [address]Ofvcdprxqu25-43-5675 10:57-0500Respiratory rate18 /minNicholas Brown DPM Work Phone: [facility] HospitalPevunjafds14-41-7519 09:25-0500Body azdati792.5 cmNicholas Brown DPM Work Phone: 1(384)[phone] [place], [place] [address]Mayptosgms63-06-6895 09:25-0500Body mass index (BMI) [Ratio]31.46 kg/w4Pxcsdfgt Brown DPM Work Phone: 1(951)879-[address] [place], [place] [address]Klgyhtwqet34-08-5871 09:25-0500Body ginftr31.02 kgNicholas Brown DPM Work Phone: 1(659)663-[address] [place], [place] [address]Splbdpomqc53-98-2053 09:25-0500Respiratory rate18 /minNicholas Brown DPM Work Phone: 1(952)915-[address] [place], [place] [address]Pkyzusglyp44-12-7413 12:01-0500Diastolic blood dsiqwtsc53 mm[Hg]Trace Ramírez MD, PhDCVP Dfxipqohtd99-45-2539 12:01-0500 Systolic blood tbmuxyxc263 mm[Hg]Trace Ramírez MD, PhDCVP Physicians 09-30-2024 09:46-0500Body zwbpon212.5 cmManjula Hemmer PA Work Phone: NOHarry S. Truman [facility]' HospitalGudhtfstqt72-66-2530 09:46-0500Body mass index (BMI) [Ratio]31.57 kg/u7Istrg Hemmer PA Work Phone: NOHarry S. Truman [facility]' HospitalIixwdjcnmi97-75-9580 09:46-0500Body temperature 97.59 [degF]Manjula Hemmer PA Work Phone: [facility] HospitalTpeoeojwlp48-12-8776 09:46-0500Body nfnoya76.29 kgMichaelen Hemmer PA Work Phone: NOHarry S. [facility]' HospitalAxxrjlmjum96-01-7329 09:46-0500Diastolic blood woccnzfx70 mm[Hg]Manjula Hemmer PA Work Phone: [facility] HospitalUdeuxphlhy17-87-6890 09:46-0500Heart rate78 /min Manjula Hemmer PA Work Phone: [facility] HospitalFcedpwldcx27-04-5137 09:46-0500Respiratory rate16 /minMichaelen Hemmer PA Work Phone: NOHarry S. Truman [facility]' HospitalAjhvukzyfr34-68-1817 09:46-6917EiZ6% (BldA) [Mass fraction]97 %Manjula Hemmer PA Work Phone: NOHarry S. Truman [facility]' HospitalBlailcfkkm42-02-9135 09:46-0500Systolic blood nuntokpc505 mm[Hg]Manjula Hemmer PA Work Phone: NOHarry S. [facility]' HospitalGctbszsxxm92-65-8261 09:21-0500Body nfgwgy590.5 cmAlexis Gilmore DPM Work Phone: noHarry S. Truman [facility]' HospitalIikjormujl81-53-0415 09:21-0500Body mass index (BMI) [Ratio]31.28 kg/l6OrmgiuxjAlexis Gilmore DPM Work Phone: NOHarry S. Truman [facility]' HospitalFpsrqlkibf80-28-6340 09:21-0500Body .56 kgPhilomenajose Gilmore DPM Work Phone: NOHarry S. Truman [facility]' HospitalJpfdwzbwtv90-15-1646 09:21-0500Respiratory rate18 /minPhilomenajose Gilmore DPM Work Phone: [facility] HospitalYrghxpyqll23-71-6980 09:33-0500Body .5 cmSthomas Cedeño FAMILY MEDICINE CHAIR Work Phone: [facility] HospitalEgjagfehmp93-39-8883 09:33-0500Body mass index (BMI) [Ratio]31.28 kg/l7PhlzxdJohnna Cedeño FAMILY MEDICINE CHAIR Work Phone: [facility] HospitalEsizpcjyft06-87-7447 09:33-0500Body audxcb27.56 kgJohnna Cedeño FAMILY MEDICINE CHAIR Work Phone: [facility] HospitalWxqqxqvljp03-73-6622 09:33-0500Diastolic blood gjulrwee26 mm[Hg]Johnna Cedeño FAMILY MEDICINE CHAIR Work Phone: [facility] HospitalQqptumfvnd81-62-8532 09:33-0500Heart rate72 /min Johnna Cedeño FAMILY MEDICINE CHAIR Work Phone: [place] [address]Awvimlgewj09-75-7491 09:33-8244VkW1% (BldA) [Mass fraction]96 %Johnna Cedeño FAMILY MEDICINE CHAIR Work Phone: [facility] HospitalTuurijgafr75-39-5846 09:33-0500Systolic blood ckfqgaif682 mm[Hg]Johnna Cedeño FAMILY MEDICINE CHAIR Work Phone: [facility] HospitalIsdgxalmwe07-32-2322 16:14-0400Diastolic blood mm[Hg]Micheal Nova INSURANCE 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 Work Phone: [facility]09-10-2024 16:14-0400 Systolic blood ydmjoznz527 mm[Hg]Micheal Priceuria INSURANCE 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 Work Phone: [facility]09-10-2024 16:10-0400 Body uwgfva601.5 cmMicheal Priceuria INSURANCE 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 Work Phone: [facility]09-10-2024 16:10-0400 Body mass index (BMI) [Ratio]29.63 kg/d9Hyswdv Rohini INSURANCE 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 Work Phone: [facility]09-10-2024 16:10-0400 Body .48 kgMahadr Rohini INSURANCE 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 Work Phone: [facility]09-10-2024 16:10-0400 Heart rate76 /minMahadr Rohini INSURANCE 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 Work Phone: [facility]09-10-2024 16:10-0400 Respiratory rate18 /minMahadr Rohini INSURANCE 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 Work Phone: [facility]08-30-2024 11:52-0400 Body rnlsuf847.5 cmAlexis Gilmore DPM Work Phone: [facility] HospitalNsdbaqgcia66-03-7026 11:52-0400Body mass index (BMI) [Ratio]29.45 kg/n7KmigmguhAlexis Gilmore DPM Work Phone: [facility] HospitalLairimdhnw39-26-4719 11:52-0400Body sfpqye56.03 kgAlexis Gilmore DPM Work Phone: [facility] HospitalQsbemscesb19-25-7910 11:52-0400Diastolic blood aawevysz62 mm[Hg]Alexis Gilmore DPM Work Phone: [facility] HospitalAmvrlxjicg20-62-1414 11:52-0400Heart rate78 /min Alexis Gilmore DPM Work Phone: [facility] HospitalCmkmofnvwl50-62-1709 11:52-0400Systolic blood wwnofgwx137 mm[Hg]Alexis Gilmore DPM Work Phone: [facility] HospitalOdmvpugpuz14-52-7722 14:17-0400Diastolic blood jydpfbug42 mm[Hg]Trace Ramírez MD, PhDCVP Ovwvwdxuyr85-81-4450 14:17-0400 Systolic blood hsmufaeh740 mm[Hg]Trace Ramírez MD, PhDCVP Physicians 06-22-2024 07:49-0400Body govomdckjcl36.9 [degF]Nely Curry MD Work Phone: [phone])[address]08-13-2024 07:49-0400 Diastolic blood wfoelvme78 mm[Hg]Nely Curry MD Work Phone: 1(216)[address] [place], [place] 6866408-13-2024 07:49-0400 Heart rate76 /Arsh Curry MD Work Phone: 1(216)[address] [place], [place] 6866408-13-2024 07:49-0400 Respiratory rate19 /Arsh Curry MD Work Phone: 1(216)[address] [place], [place] 6866408-13-2024 07:49-0400 SaO2% (BldA) [Mass fraction]91 %Nely Curry MD Work Phone: 1(216)[address] [place], [place] 6866408-13-2024 07:49-0400 Systolic blood oaefzkvi461 mm[Hg]Nely Curry MD Work Phone: 1(216)877-[address] [place], [place] 9132408-12-2024 17:12-0400 Body drmanp119.5 Conor Curry MD Work Phone: 1([address]08-12-2024 17:12-0400 Body mass index (BMI) [Ratio]29.26 kg/w4FygzdNely Curry MD Work Phone: [phone]08-12-2024 17:12-0400 Body .58 kgNely Curry MD Work Phone: 1(216)2-[address] [place], [place] 9132408-06-2024 15:12-0400 Body sqxekx533.5 cmMargareth Escamilla DO Work Phone: 1([phone])137-[address] [place], [place] 3574508-06-2024 15:12-0400 Body mass index (BMI) [Ratio]30.18 kg/i9PuvffMargareth Escamilla DO Work Phone: 1(379)6-[address] [place], [place] 3574508-06-2024 15:12-0400 Body jmbogz15.84 kgMehdi Shishehbor DO Work Phone: [facility]08-06-2024 15:12-0400 Diastolic blood mm[Hg]Margareth Shishehbor DO Work Phone: [facility]08-06-2024 15:12-0400 Heart rate91 /minMehdi Shishehbor DO Work Phone: [facility]08-06-2024 15:12-0400 Systolic blood gssjoxhz497 mm[Hg]Margareth Shishehbor DO Work Phone: [facility]07-10-2024 12:35-0400 Diastolic blood vimernbl18 mm[Hg]II Champ Bell Work Phone: 1([phone]07-10-2024 12:35-0400 Heart rate64 /HeathLucero Bell Work Phone: 1(938)[address]07-10-2024 12:35-0400 Respiratory rate16 /HeathLucero Bell Work Phone: 1(916)[address]07-10-2024 12:35-0400 SaO2% (BldA) [Mass fraction]96 %II Champ Bell Work Phone: 1(970)315-[address] [place], [place] 1070307-10-2024 12:35-0400 Systolic blood advslncu340 mm[Hg]II Champ Bell Work Phone: 1(043)932-[address] [place], [place] 1070307-10-2024 10:00-0400 Inhaled oxygen flow rate2 L/HeathLucero Bell Work Phone: 1(091)[address]07-10-2024 08:33-0400 Body wifmuj220.48 cmII Champ Bell Work Phone: 1(382)458-[address] [place], [place] 1070307-10-2024 08:33-0400 Body cvwrfe74.84 kgII Champ Bell Work Phone: 1(843)065-[address] [place], [place] 1070307-09-2024 10:46-0400 Body ibsjgl738.48 cmII Champ Bell Work Phone: [facility]07-09-2024 10:46-0400 Body mass index (BMI) [Ratio]29.6 kg/m2II Champ Bell Work Phone: [facility]07-09-2024 10:46-0400 Body .6 [degF]II Champ Bell Work Phone: [facility]07-09-2024 10:46-0400 Body .48 kgII Champ Bell Work Phone: 1(882)955-[address] [place], [place] 1478307-09-2024 10:46-0400 Diastolic blood vtzofbhl50 mm[Hg]II Champ Bell Work Phone: 1(942)529-[address] [place], [place] 1478307-09-2024 10:46-0400 Heart rate63 /minII Champ Bell Work Phone: 1(658)898-[address] [place], [place] 1478307-09-2024 10:46-0400 SaO2% (BldA) [Mass fraction]96 %II Champ Bell Work Phone: [facility]07-09-2024 10:46-0400 Systolic blood zzntoavk397 mm[Hg]II Champ Bell Work Phone: [facility]02-01-2024 16:15-0500 Body nctfer287.5 cmAlexis Dillon DPM Work Phone: [facility] HospitalJyjmueovhp30-09-4187 16:15-0500Body mass index (BMI) [Ratio]29.26 kg/a6QbiqhjqnAlexis Gilmore DPM Work Phone: [facility] HospitalEkxcyeyang84-00-9624 16:15-0500Body afnjdx91.58 kgAlexis Gilmore DPM Work Phone: [facility] HospitalOwqmbrjlrb69-84-1290 16:15-0500Diastolic blood nqwtavum04 mm[Hg]Alexis Gilmore DPM Work Phone: [facility] HospitalLaeajsrmkm44-13-5696 16:15-0500Heart rate77 /min Alexis Gilmore DPM Work Phone: noHarry S. [facility]' HospitalFnspxmaglh82-84-6127 16:15-0500Systolic blood ycevqrot739 mm[Hg]Alexis Gilmore DPM Work Phone: noHarry S. Truman [facility]' HospitalPghovktspv73-29-6722 10:30-0400Body faexou846.48 cmSabrina Borden Other [place] [employer] Other 04-12-2023 10:30-0400Body mass index (BMI) [Ratio] 28.35 kg/v5PtyplcSabrina Borden Other [employer] Other 04-12-2023 10:30-0400Body bjbpalbgetm55.8 [degF]Sabrina Borden Other [employer] Other 04-12-2023 10:30-0400Body uynujz50.31 kgSabrina Borden Other [employer] Other 04-12-2023 10:30-0400Diastolic blood eydcqftq14 mm[Hg] Sabrina Borden Other [employer] Other 04-12-2023 10:30-0157SdF5% (BldA) [Mass fraction]95 % Sabrina Borden Other [employer] Other 04-12-2023 10:30-0400Systolic blood vlbzbfwi916 mm[Hg] Sabrina Borden Other [employer] Other 03-06-2023 16:30-0500Diastolic blood cleuwdtq31 mm[Hg] II Champ Bell Work Phone: 1(419)483-[address] [place], [place] 1070303-06-2023 16:30-0500 Heart rate63 /Ky Bell Work Phone: 1(529)527-[address] [place], [place] 1070303-06-2023 16:30-0500 Respiratory rate16 /Ky Bell Work Phone: 1(217)289-[address] [place], [place] 1070303-06-2023 16:30-0500 SaO2% (BldA) [Mass fraction]95 %II Champ Bell Work Phone: 1(079)810-[address] [place], [place] 1070303-06-2023 16:30-0500 Systolic blood lkfysbxx313 mm[Hg]II Champ Bell Work Phone: 1(239)298-[address] [place], [place] 1070303-06-2023 14:00-0500 Inhaled oxygen flow rate2 L/Ky Bell Work Phone: 1(924)647-[address] [place], [place] 1070303-06-2023 11:42-0500 Body .48 cmII Champ Bell Work Phone: 1(713)516-[address] [place], [place] 1070303-06-2023 11:42-0500 Body qrijop29.49 kgII Champ Bell Work Phone: 1(051)706-[address] [place], [place] 1070303-02-2023 08:30-0500 Body zxysmq074.48 cmMabrianne Mathew Other [employer] Other 03-02-2023 08:30-0500Body mass index (BMI) [Ratio] 28.35 kg/s5GjtnsguGeo Mathew Other [employer] Other 03-02-2023 08:30-0500Body cxejnqpkmog59.8 [degF] Geo Mathew Other [employer] Other 03-02-2023 08:30-0500Body okbzoo31.31 kgMattarash Mathew Other [employer] Other 03-02-2023 08:30-0500Diastolic blood egkddmos49 mm[Hg] Geo Mathew [facility] [employer] Other 03-02-2023 08:30-0850FuP7% (BldA) [Mass fraction]95 % Geo Mathew Other [place] [employer] Other 03-02-2023 08:30-0500Systolic blood ufbbpdoy521 mm[Hg] Geo Mathew Other [place] [employer] Other 11-11-2021 13:00-0500Body yvnzvl606.48 cmMattarash Mathew Other [place] [employer] Other 11-11-2021 13:00-0500Body mass index (BMI) [Ratio] 31.09 kg/z4MkualzdGeo Mathew Other [place] [employer] Other 11-11-2021 13:00-0500Body zdwcwi87.11 kgMattarash Mathew Other [place] [employer] Other 11-11-2021 13:00-0500Diastolic blood djsnuxxl74 mm[Hg] Geo Mathew Other [place] [employer] Other 11-11-2021 13:00-0500Systolic blood vofoniez938 mm[Hg] Geo Mathew Other [facility] Other Encounters Encounter DateEncounter TypeCare ProviderFacilityStart: 09-20-2025 End: 41-36-7432Msceyl flowsShayne Cedeño FAMILY MEDICINE CHAIR Work Phone: NOPO oMi Clark MedinceStart: 09-20-2025 End: 72-48-7381Hmtwmk Stacy Cedeño FAMILY MEDICINE CHAIR Work Phone: [facility] Moi Clark MedinceStart: 09-20-2025 End: 03-16-0414Mnmium outpatient visit 25 minutesJohnna Cedeño FAMILY MEDICINE CHAIR Work Phone: noms Moi Clark MedinceComment on above:Acute non- recurrent pansinusitis (Primary Dx)Start: 09-20-2025 End: 55-77-9036kgslsabagnXCQOUM M SHIVELYNot AvailableStart: 09-15-2025 End: 75-59-5489Aqspvb outpatient visit 15 minutesAlexis Gilmore DPM Work Phone: noms CI PODIATRYComment on above:Achilles tendinitis, right leg (Primary Dx); Contracture of right ankle; Type 2 diabetes mellitus with hyperglycemia, with long-term current use of insulin (HCC); Pain due to onychomycosis of toenails of both feetStart: 09-15-2025 End: 10-01-8966wcvosiuhzyFILMJSLS A BROWNNot AvailableStart: 09-15-2025 End: 26-98-7166Porsdr Edgar Gilmore DPM Work Phone: noms CI PODIATRYStart: 09-15-2025 End: 01-38-2328Cjixpi Edgar Gilmore DPM Work Phone: noms CI PODIATRYStart: 46-18-5482zjtmfymsjpNjbrcjJordan Valley Medical Centertart: 08-24-2025 End: 30-62-0246Rqfhdx Stacy Cedeño FAMILY MEDICINE CHAIR Work Phone: [facility] Moi Clark MedinceStart: 08-24-2025 End: 55-98-5995Ivvppn Stacy Cedeño FAMILY MEDICINE CHAIR Work Phone: [facility] Moi Clark MedinceStart: 08-24-2025 End: 68-67-7542Todgdh outpatient visit 25 minutesJohnna Cedeño FAMILY MEDICINE CHAIR Work Phone: [facility]oms [facility] HospitaleComment on above:Abnormal breast exam (Primary Dx); Encounter for screening mammogram for malignant neoplasm of breast; Type 2 diabetes mellitus with diabetic chronic kidney disease (HCC); Chronic kidney disease, stage 3b ([facility]-HCC); Acute non-recurrent pansinusitisStart: 08-24-2025 End: 86-08-5648fuwtsciedbZDFUNA M SHIVELYNot AvailableStart: 08-12-2025 End: 56-29-0402Uciqks outpatient visit 25 minutesAgustin Phamweiki Work Phone: [employer] ToledoStart: 95-19-3262mvnbclizkiDhoimx Al Shweiki [facility] InstituteStart: 02-01-5094fvgsystlraSvkrpq Al ShweikiYoungsville Eye InstituteStart: 07-28-2025 End: 38-38-4622Clteju outpatient visit 25 minutesSaneeru Brock Shweiki Work Phone: [employer] [place]edoStart: 33-89-6841zhqkkunihcMkyfmw Al ShweParma Community General Hospital InstituteStart: 07-27-2025 End: 45-21-7435Ykposk follow up visit related to original Alexandru Gilmore DPM Work Phone: noms [facility] Espinoza PodiatryComment on above: Contracture of right ankle (Primary Dx); Achilles tendinitis, right leg; Type 2 diabetes mellitus with hyperglycemia, with long-term current use of insulin ([facility])Start: 07-27-2025 End: 48-23-4750zkuetmssskRFZZFJAJ A BROWNNot AvailableStart: 07-27-2025 End: 22-00-5349Opcdzy Edgar Gilmore DPM Work Phone: noms [facility] Espinoza PodiatryStart: 07-27-2025 End: 98-34-8502Muurmw Edgar Gilmore DPM Work Phone: noms [facility] Espinoza PodiatryStart: 07-22-2025 End: 15-28-1728Hxytxffg Result EncounterAlexis Gilmore DPM Work Phone: noms External Department UnsolicitedStart: 07-22-2025 End: 73-10-9184Wyeffnjo Result EncounterAlexis Gilmore DPM Work Phone: noms External Department UnsolicitedStart: 07-22-2025 End: 70-04-4984Omlhebzvl to same day surgery [place] cityAlexis Gilmore DPM-[facility] CampusStart: 07-22-2025 End: 45-50-0380uaiqzrzhhvVpqnmk Berry II Work Phone: [facility] Work Phone: Start: 07-20-2025 End: 05-46-7077Lhpiud Stacy Cedeño FAMILY MEDICINE CHAIR Work Phone: noms [facility]i Family MedinceStart: 07-20-2025 End: 19-41-3218Isvcfrrohan Cedeño FAMILY MEDICINE CHAIR Work Phone: noms [facility] Family MedinceStart: 07-20-2025 End: 63-02-4376Rpxags outpatient visit 25 minutesJohnna Cedeño FAMILY MEDICINE CHAIR Work Phone: noms Moi Family MedinceComment on [...] single episode, in full remissionStart: 07-20-2025 End: 75-07-5225Psfsxgvrzlzf Masood Cedeño FAMILY MEDICINE CHAIR Work Phone: [facility] Work Phone: Start: 07-20-2025 End: 88-64-3425aspmvoeqijNEZAGC M SHIVELYNot AvailableStart: 07-19-2025 End: 96-27-2850Uwhzgprp Result EncounterNicholjose Gilmore DPM Work Phone: noms External Department UnsolicitedStart: 07-19-2025 End: 40-48-0214Xqveivpu Result EncounterPhiolmenajose Gilmore DPM Work Phone: noms External Department UnsolicitedStart: 07-19-2025 End: 91-66-6352Toxksly encounter procedureAlexis Gilmore LET-Hjd-Eqdskqbd Testing Work Phone: Start: 07-19-2025 End: 08-12-9466bnywszfnzpMugdhu Bell II Work Phone: [facility] Work Phone: Start: 57-50-7987Mtudbazrz for preprocedural laboratory examinationAlexis Gant [facility] Phys[facility] GroupStart: 07-18-2025 End: 70-29-7602britwhgefhMGXAECDE A BROWNNot AvailableStart: 07-18-2025 End: 78-39-2446Usxwgf outpatient visit 25 minutesAlexis Berry Dillon DPM Work Phone: noms Ivy Espinoza PodiatryComment on above: Contracture of right ankle (Primary Dx); Achilles tendinitis, right leg; Diabetes mellitus due to underlying condition with diabetic polyneuropathy, unspecified whether skilled nursing insulin use (HCC)Start: 93-87-8678krpxbceyiz Trace Jar[facility] Eye InstituteStart: 07-12-2025 End: 67-45-7175Purouh Vincent Delcid DO Work Phone: noms [facility] EyeStart: 07-12-2025 End: 25-33-1679Fgeaiy Vincent Delcid DO Work Phone: [facility]oms [facility] EyeStart: 07-12-2025 End: 33-38-4602gaxlflgcqiMVYUWSKX D ZAHLERNot AvailableStart: 06-20-2025 End: 96-90-1197Nvwmns follow up visit related to original Marcus Fox MD Work Phone: noms Surgical AssociatesComment on above:History of colon polyps (Primary Dx); Upper abdominal pain; Iron deficiency anemia, unspecified iron deficiency anemia type; Chronic anticoagulation; Other chronic gastritis without hemorrhageStart: 06-20-2025 End: 88-70-9030vntgjzshllNITIJD VARGAS VNot AvailableStart: 06-16-2025 End: 56-42-5986Dxfpif outpatient visit 15 minutesAlexis Gilmore DPM Work Phone: noms CI PODIATRYComment on above:Achilles tendinitis, right leg (Primary Dx); Contracture of right ankle; Diabetes mellitus due to underlying condition with diabetic polyneuropathy, unspecified whether terminal operator insulin use (HCC); Pain due to onychomycosis of toenails of both feetStart: 06-16-2025 End: 84-75-4823xdnbqbfyaqDBKIAPZX A BROWNNot AvailableStart: 06-16-2025 End: 91-43-6058Iupkoj Edgar Gilmore DPM Work Phone: noms CI PODIATRYStart: 06-16-2025 End: 49-58-0927Tmhtqkping Gilmore DPM Work Phone: noms CI PODIATRYStart: 06-09-2025 End: 37-24-6029Irsgqivn Result Fatemeh Fox MD Work Phone: noms External Department UnsolicitedStart: 06-09-2025 End: 50-50-0411Paqxcbbk Result Fatemeh Cronin MD Work Phone: noms External Department UnsolicitedStart: 06-09-2025 End: 37-50-2242Ezvspvjas to same day surgery Byron Fox MD-[facility] CampusStart: 06-09-2025 End: 35-11-2629rlyvkakegfIvsedi Berry II Work Phone: [facility] Work Phone: Start: 05-30-2025 End: 58-14-2390sezhbkphhrAMIOCMBerger Hospital Start: 05-30-2025 End: 14-95-3441Vsthqtsul for preprocedural cardiovascular examinationGEORMercy Health Lorain Hospitaltart: 05-25-2025 End: 87-72-4154Hfvdrg outpatient new 45 minutesDale Fox MD Work Phone: noms ST GENSComment on above:Iron deficiency anemia, unspecified iron deficiency anemia type (Primary Dx); History of colon polyps; Upper abdominal pain; Screening for colon cancer; Chronic anticoagulationStart: 05-25-2025 End: 35-03-5659egwzhtvdxiTNYOXV VARGAS VNot AvailableStart: 05-09-2025 End: 70-06-8961Gnlutviwyl Reny Mckinley MD Work Phone: Referring PhysicianComment on above:Iron deficiency anemia, unspecified iron deficiency anemia type (Primary Dx)Start: 04-29-2025 End: 56-75-6541kglsviqerqDKPU ALEYDADUfabioWayne HealthCare Main Campustart: 04-26-2025 End: 79-60-6271kpwmamsicrPXFKOPSHTC E MALENFOhioHealth Dublin Methodist Hospitaltart: 04-14-2025 End: 64-18-9900Ibkmri Stacy Cedeño FAMILY MEDICINE CHAIR Work Phone: NOM[facility] CI FMStart: 04-14-2025 End: 67-30-8625Tecvds flowsShayne Cedeño FAMILY MEDICINE CHAIR Work Phone: [facility] CI FMStart: 04-14-2025 End: 22-11-1285Hqhlj of hemosiderin, quantShjozef Cedeño FAMILY MEDICINE CHAIR Work Phone: NOM[facility] HealthcareStart: 04-14-2025 End: 16-15-3679Wbjgjvs encounter procedureSthomas Cedeño FAMILY MEDICINE CHAIR Work Phone: [facility] CI FMComment on above:Medicare annual wellness visit, subsequent (Primary Dx); 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 (CMS/HCC); Benign essential hypertension (CMS/HCC); Diverticulosis of colon; Generalized anxiety disorder ([facility]); Irritable bowel syndrome with both constipation and diarrhea; Mixed hyperlipidemia ([facility]); Paroxysmal atrial fibrillation ([facility]); Peripheral vascular disease ([facility]); Polyneuropathy due to type 2 diabetes mellitus ([facility]); Poorly controlled diabetes mellitus ([facility]); 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 associated with type 2 diabetes mellitus ([facility]); Type 2 diabetes mellitus with hyperglycemia, with long-term current use of insulin ([facility]); Osteopenia, unspecified location; Asthma without status asthmaticus without complication, unspecified asthma severity, unspecified whether persistent ([facility]); Arteriosclerosis of arterial coronary artery bypass graft ([facility]); Estrogen deficiency; Chronic migraine with aura without status migrainosus, not intractable ([facility]); Overweight; 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 ([facility]); 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, with long-term current use of insulin, unspecified retinopathy severity ([facility]); Bilateral carotid artery stenosis; New onset of congestive heart failure ([facility]); NSTEMI (non-ST elevated myocardial infarction) ([facility]); Screening for thyroid disorder; Routine general medical examination at health care facility; Screening for colon cancerStart: 04-14-2025 End: 82-06-4126mrneinjgdnPSZCUNAmelia Abbott AvailableStart: 03-30-2025 End: 92-76-9248Zgtikh outpatient visit 15 minutesAlexis Gilmore DPM Work Phone: [facility] [place] PODComment on above:Contracture of right ankle (Primary Dx); Achilles tendinitis, right leg; Diabetes mellitus due to underlying condition with diabetic polyneuropathy, unspecified whether skilled nursing insulin use ([facility]); Pain due to onychomycosis of toenails of both feetStart: 03-30-2025 End: 36-01-0874zcmuejfpyrWDQEUVKX A BROWNNot AvailableStart: 03-30-2025 End: 55-84-4990Svzpzu flowsheetAlexis Gilmore DPM Work Phone: [facility] [place] PODStart: 03-30-2025 End: 62-20-0974Lkghle flowsheetAlexis Gilmore DPM Work Phone: [facility]oms [place] PODStart: 03-10-2025 End: 96-54-8377Aqeqfjm encounter procedureChamp Bell II Work Phone: [facility] Work Phone: Start: 03-10-2025 End: 52-42-0421pxynkciyvcRjoqmo Bell II Work Phone: [facility] Work Phone: Start: 03-03-2025 End: 58-67-6660Itjsxcqyn Result EncounterChamp Bell MD Work Phone: noms External Department UnsolicitedStart: 03-03-2025 End: 17-97-4441Ifgfgnclp Result EncounterChamp Bell MD Work Phone: noms External Department UnsolicitedStart: 03-02-2025 ambulatoryGEORGE [facility]tart: 03-01-2025 End: 53-97-6730Oegmny outpatient visit 15 minutesJohnna Cedeño [facility] Work Phone: noms CI FMComment on above:Encounter for screening mammogram for breast cancer (Primary Dx); Type 2 diabetes mellitus with hyperglycemia, with long-term current use of insulin (CMS/HCC); Rheumatoid arthritis, unspecified; Vitreous hemorrhage, left eye (CMS/HCC); Vitreous hemorrhage, right eye (CMS/HCC); Atherosclerosis of [place] arteries of right leg with ulceration of thigh (CMS/HCC)Start: 03-01-2025 End: 72-38-9941xntiytbrpqVGFJPL M SHIVELYNot AvailableStart: 02-21-2025 Evaluation and management of inpatientMUHAMMAD [facility] Hospitaltart: 86-20-8093Cjjqebtrsa and management of inpatientNORTHERN COCHISE COMMUNITY HOSPITALI [facility] Akrontart: 02-18-2025 End: 29-37-4427Yavobfxpw Result EncounterGeneric External Data ProviderNOMS External Department UnsolicitedStart: 02-18-2025 End: 35-46-1327Atzxmtevk Result EncounterGeneric External Data ProviderNOMS External Department UnsolicitedStart: 30-07-6059Vhztioywqn and management of inpatientANDREW JETVan Wert County Hospitaltart: 02-18-2025 End: 66-76-5766Xiqzuonkyc and management of inpatientJEFFERY KATKOBarney Children's Medical Centertart: 02-15-2025 End: 74-03-5142kwffxdbhllRshtlvynx E DoamekporFacility:[facility] Hospitaltart: 02-15-2025 End: 66-43-3759Pfrcqpehsy and management of inpatientChamp Bell II Work Phone: [facility] [place] Work Phone: Start: 02-15-2025 End: 22-63-4396wleiwhghyoe encounterDakathi Bell II Work Phone: [facility] Work Phone: Start: 02-15-2025 End: 62-47-9110Ksxevq flowsJd Delcid DO Work Phone: noms NB OPHTStart: 02-15-2025 End: 74-30-5375Hcyalb flowsheetTeena Delcid DO Work Phone: noms NB OPHTStart: 02-15-2025 End: 66-01-7886wpmvmwfjzoJBZBHGGC D ZAHLERNot AvailableStart: 02-03-2025 End: 76-05-8199LkudsxJxzvzz B Berry MD Work Phone: noms POPULATION HEALTHComment on above:Type 2 diabetes mellitus with hyperglycemia, with long-term current use of insulin ([facility]) Start: 01-05-2025 End: 78-34-3720Zjughiips identifierTrace Ramírez Work Phone: [facility] [place]Start: 01-05-2025 End: 51-20-6861Gyrybpl R Petersen Work Phone: [facility] [place]Start: 39-95-4703sghcjqtblqUjqyqzr Charleen MelchorenCincinnatlucero Eye InstituteStart: 12-30-2024 End: 84-04-1591Tdwcdz Edgar Gilmore DPM Work Phone: noMS CI PODIATRYStart: 12-30-2024 End: 23-48-6248Ziiyln Edgar Gilmore DPM Work Phone: noms CI PODIATRYStart: 12-30-2024 End: 18-45-7122Glghqb outpatient visit 25 minutesJohnna Cedeño NP Work Phone: NOMS CI FMComment on above:Paroxysmal atrial fibrillation (CMS/HCC) (Primary Dx); Benign essential hypertension (CMS/HCC); Type 2 diabetes mellitus with hyperglycemia, with long-term current use of insulin (CMS/HCC); 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 (CMS/HCC); S/P CABG x 4; Encounter for screening mammogram for malignant neoplasm of breast; Type 2 diabetes mellitus with foot ulcer (CODE) (CMS/HCC); Non-pressure chronic ulcer of other part of left foot with fat layer exposed (CMS/HCC)Start: 12-30-2024 End: 17-90-4882dcldgmrwboBUSVCYAmelia Abbott AvailableStart: 12-30-2024 End: 02-59-2931Dkrtwx outpatient visit 15 minutesAlexis Gilmore DPM Work Phone: NOMS [place] PODIATRYComment on above:Heel spur, right (Primary Dx); Achilles tendinitis, right leg; Contracture of right ankleStart: 12-30-2024 End: 94-35-2973feesqylyneNGQZJYAN A BROWNNot AvailableStart: 12-20-2024 End: 45-52-5343jdqtrklpvuMOMJQE [facility] Start: 12-18-2024 End: 23-08-0046Ucbhnhnms Result EncounterGeneric External Data ProviderNOMS External Department UnsolicitedStart: 12-18-2024 End: 19-26-5577Lucsjvfqf Result EncounterGeneric External Data ProviderNOMS External Department UnsolicitedStart: 12-09-2024 End: 10-58-5935Adtbfj Edgar Berry Dillon DPM Work Phone: noms CI PODIATRYStart: 12-09-2024 End: 28-42-9010Ylcvyx antelmofrantzGalileojessica Berry Dillon DPM Work Phone: noms CI PODIATRYStart: 12-09-2024 End: 15-13-0864bgtadgvvbnGBSZKUZO A BROWNNot AvailableStart: 12-09-2024 End: 07-41-3830Ghmhtw outpatient visit 15 minutesNicjessica Gilmore DPM Work Phone: noms CI PODIATRYComment on above:Heel spur, right (Primary Dx); Diabetes mellitus due to underlying condition with diabetic polyneuropathy, unspecified whether skilled nursing insulin use ([facility]); Pain due to onychomycosis of toenails of both feet; Onychomycosis; PVD (peripheral vascular disease) ([facility]); Achilles tendinitis, right leg; Contracture of right ankleStart: 10-21-2024 End: 83-40-3252Vyvwul outpatient visit 25 minutesTrace Ramírez Work Phone: [facility] [place]Start: 71-70-7398hthudddgsmVzzotggJeanie Jaramillo Eye InstituteStart: 10-15-2024 End: 61-81-0491Ljiadm flowsJd Delcid DO Work Phone: NODL NB OPHTStart: 10-15-2024 End: 22-96-4426Hdzkbm flowsJd Delcid DO Work Phone: NOWB NB OPHTStart: 10-15-2024 End: 89-25-7073Btyxze follow up visit related to original Valentín Delcid DO Work Phone: noms NB OPHTComment on above:Pseudophakia (Primary Dx) Start: 10-15-2024 End: 45-96-2902djrbakloetIQJXIHXSTete Jacob AvailableStart: 09-30-2024 End: 27-45-0305Fbzite Edgar Gilmore DPM Work Phone: N[facility] CI PODIATRYStart: 09-30-2024 End: 15-23-1180Erzcpr Edgar Gilmore DPM Work Phone: N[facility] CI PODIATRYStart: 09-30-2024 End: 64-40-9455Vsbbiz outpatient visit 15 Irma CUEVAS Work Phone: NOMS CI FMComment on above:Acute asthmatic bronchitis (CMS/HCC) (Primary Dx); Need for vaccination; Hypotension, unspecified hypotension typeStart: 09-30-2024 End: 73-49-4883Mzvbuf outpatient visit 10 Chanell Gilmore DPM Work Phone: noMS CI PODIATRYComment on above:Dry gangrene (CMS/HCC) (Primary Dx); PVD (peripheral vascular disease) (CMS/HCC); Diabetes mellitus due to underlying condition with diabetic polyneuropathy, unspecified whether skilled nursing insulin use (CMS/HCC); Pain due to onychomycosis of toenails of both feetStart: 09-30-2024 End: 31-52-2496gunggtwbisUUIHELizz Woodward AvailableStart: 09-22-2024 End: 39-71-5403Crrjps outpatient visit 25 minutesJohnna Cedeño NP Work Phone: NOM[facility] CI FMComment on above:Acute asthmatic bronchitis (CMS/HCC) (Primary Dx); Type 2 diabetes mellitus with hyperglycemia, with long-term current use of insulin (CMS/HCC); Polyneuropathy due to type 2 diabetes mellitus (CMS/HCC); Acute coughStart: 09-22-2024 End: 04-21-2076koxjoscaaoZQRQEHAmelia Abbott AvailableStart: 09-17-2024 End: 48-41-5850Fbbxjb flowsheetJonathan D Lianaer DO Work Phone: noms NB OPHTStart: 09-17-2024 End: 21-72-6423Ynkhqx flowsheetJonathan Ml Estradahler DO Work Phone: NOUQ NB OPHTStart: 09-17-2024 End: 72-80-2331Fgebpa follow up visit related to original pxJonathan D Nataliehler DO Work Phone: NOMS NB OPHTComment on above:Pseudophakia (Primary Dx) Start: 09-07-2024 End: 44-03-3372Jffaqw flowsheetJonathan D Nataliehler DO Work Phone: NORH NB OPHTStart: 09-07-2024 End: 08-73-6247Chipfh flowsheetJonathan Ml Estradahler DO Work Phone: NOQR NB OPHTStart: 09-07-2024 End: 63-83-9719Iituxn follow up visit related to original pxJonathan D Lianaer DO Work Phone: NOPC NB OPHTComment on above:Pseudophakia (Primary Dx) Start: 08-31-2024 End: 04-60-6880Yvywwq flowsheetJonathan D Lianaer DO Work Phone: NOFH NB OPHTStart: 08-31-2024 End: 67-49-4929Scitqk flowsheetJonathan D Nataliehler DO Work Phone: NOMZ NB OPHTStart: 08-31-2024 End: 79-42-1502Hznwdr follow up visit related to original pxJonathan D Lianaer DO Work Phone: NOMS NB OPHTComment on above:Pseudophakia (Primary Dx); Cataract mature, total senileStart: 08-24-2024 End: 51-56-5878Oxwchg flowsheetJonathan D Nataliehler DO Work Phone: NOMS NB OPHTStart: 08-24-2024 End: 55-66-6498Xtokti flowsheetTeena Gaineser DO Work Phone: noms OPHTStart: 08-24-2024 End: 49-90-0196Weapho follow up visit related to original Valentín Delcid DO Work Phone: noms OPHTComment on above:Pseudophakia (Primary Dx) Start: 08-18-2024 End: 51-41-0543zhkljyaxjkVKXJNQGBarney Children's Medical Centertart: 08-04-2024 End: 10-54-2742Ljzqnzlym identifierTrace Ramírez Work Phone: [facility] BremertonedoStart: 08-04-2024 End: 35-80-2096VxxwbsqTrace Ramírez Work Phone: [facility] BremertonedoStart: 07-20-2024 End: 93-67-1828psqxupwtxrAHOIOGuthrie Corning Hospital AmbulatoryStart: 07-20-2024 End: 33-23-6205Nugmnq outpatient visit 25 minutesMamargot SORIA Work Phone: [facility] MatherComment on above:S/P peripheral artery angioplasty (Primary Dx); PAD (peripheral artery disease) ([facility])Start: 07-20-2024 End: 87-04-6350Dwxqdonmzl hospital visit by physician[address] MatherComment on above:PAD (peripheral artery disease) ([facility] S/P peripheral artery angioplastyStart: 07-20-2024 End: 66-43-7557vevqwdnnqlATUKYLouis Stokes Cleveland VA Medical Centertart: 07-13-2024 End: 08-15-6886Chroyc flowsheetTeena Gaineser DO Work Phone: noms OPHTStart: 07-13-2024 End: 27-95-9961Tbpkww flowsheetTeena Delcid DO Work Phone: noms ELSIE OPHTStart: 07-13-2024 End: 94-83-5042Abhfma outpatient visit 25 minutesTeena Delcid DO Work Phone: noms ELSIE OPHTComment on above:Cataract mature, total senile (Primary Dx)Start: 07-09-2024 End: 02-43-3798Wzsewy flowsheetNicholas Berry Brown DPM Work Phone: noMS [place] PODStart: 07-09-2024 End: 26-46-9757Kregfe flowsheetNicholas A Brown DPM Work Phone: noms [place] PODStart: 07-09-2024 End: 04-53-6229Fcfocm outpatient visit 15 minutesNicjessica Smart Brown DPM Work Phone: noms [place] PODComment on above:Dry gangrene (CMS/HCC) (Primary Dx); PVD (peripheral vascular disease) (CMS/HCC); Diabetes mellitus due to underlying condition with diabetic polyneuropathy, unspecified whether terminal operator insulin use (CMS/HCC); Onychomycosis; Toe pain, bilateralStart: 06-30-2024 End: 79-21-1212Yxfdfeapc identifierTrace Ramírez Work Phone: [facility] [place]Start: 06-30-2024 End: 98-50-1469IjjzvulTrace Ramírez Work Phone: [facility] [place]Start: 06-21-2024 End: 83-09-5995Auepppmtu Result EncounterGeneric External Data ProviderNOMS External Department UnsolicitedStart: 06-21-2024 End: 23-81-6293Pppxqwtir Result EncounterGeneric External Data ProviderNOMS External Department UnsolicitedStart: 06-21-2024 End: 16-92-3944Urjntlwgxt hospital visit by Cuba Curry MD Work Phone: uh [facility] 7Comment on above:S/P peripheral artery angioplasty (Primary Dx); PAD (peripheral artery disease) ([facility]); Atherosclerosis of [place] arteries of extremities with intermittent claudication, left leg (CMS-HCC); Atherosclerosis of [place]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 with ulceration of other part of foot (Multi); Acute painStart: 06-15-2024 End: 74-43-3294rizlddrqdbARZN [facility] Hospitaltart: 06-15-2024 End: 99-17-6567Qhtgng outpatient new 60 minutesSt[facility] DO Work Phone: [facility] MatherComment on above:PAD (peripheral artery disease) ([facility]) (Primary Dx); Anemia, unspecified typeStart: 06-15-2024 End: 99-33-1151Nzrwnvzfy Result EncounterGeneric External Data ProviderNOMS External Department UnsolicitedStart: 06-15-2024 End: 08-76-6114Aarpgsvcj Result EncounterGeneric External Data ProviderNOMS External Department UnsolicitedStart: 06-15-2024 End: 25-35-2376rvyuyxsuvdOZHGHGuthrie Corning Hospital AmbulatoryStart: 06-15-2024 End: 78-32-7295ovbhedxfsqSMMVKA [facility] Campustart: 05-27-2024 End: 73-39-4999xbsuoffvbtGN Champ Bell Work Phone: [facility] Work Phone: Start: 05-27-2024 End: 96-41-4295Bpofsiw encounter procedureII Champ Bell Work Phone: [facility]-Ultrasound [facility] [place] Work Phone: Start: 78-64-9091Blh-patient / Non-visitII Champ Bell Work Phone: [facility] Vascular Surgery Work Phone: Start: 05-19-2024 End: 07-18-8182Oxootfdbe to same day surgery centerII Champ Bell Work Phone: [facility]-Interventional Radiology Work Phone: Start: 05-19-2024 End: 68-95-1230xefndprnmdWW Champ Bell Work Phone: [facility] Work Phone: Start: 05-18-2024 End: 03-29-4888Loxwtmy encounter procedureII Champ Bell Work Phone: [facility] Vascular Surgery Work Phone: Start: 05-17-2024 End: 64-66-9276lbzkrxclnoYF Champ Bell Work Phone: [facility] Work Phone: Start: 05-17-2024 End: 58-08-3537Jhkfaus encounter procedureII Champ Bell Work Phone: [facility] [place] Work Phone: Start: 05-06-2024 End: 56-27-5794Ficgeu outpatient visit 25 minutesMicnolan Ramírez Work Phone: [facility] [place]Start: 12-11-2023 End: 73-77-6587Baglfk outpatient visit 15 minutesAlexis Gilmore DPM Work Phone: NODU CI PODIATRYComment on above:Diabetes mellitus due to underlying condition with diabetic polyneuropathy, unspecified whether terminal operator insulin use ([facility]) (Primary Dx); PVD (peripheral vascular disease) ([facility]); Dry gangrene ([facility]); Foot ulcer, left, with fat layer exposed ([facility])Start: 12-03-2023 End: 14-14-1241Vvadczpyy Result EncounterGeneric External Data ProviderNOMS External Department UnsolicitedStart: 12-03-2023 End: 71-55-5474Lqmtnsicv Result EncounterGeneric External Data ProviderNOMS External Department UnsolicitedStart: 02-19-2023 End: 91-98-5163Ffhzgqq encounter procedureSabrina Bermudez Vascular Surgery Start: 02-19-2023 End: 62-84-3397fnblgzemisDX Champ Bell Work Phone: [facility] Other Start: 01-31-2023 End: 66-07-3870feiaxncaqtJO CHAMP BELLFacility:E9Yxyba: 01-13-2023 End: 23-49-0805Unxeepnhl to same day surgery centerII Champ Bell Work Phone: [facility]-Interventional Radiology Work Phone: Start: 01-13-2023 End: 17-69-2184yltruxqwiyCJ Champ Bell Work Phone: [facility] Work Phone: Start: 01-09-2023 End: 08-48-8987jmlumknkgfTiidtbf Langenberg Other [facility] [employer] Other Start: 42-33-9674Vgczwg outpatient new 60 minutes Geo Manuel Vascular SurgeryStart: 12-30-2022 End: 85-21-8222ornyakbqpvCEZMAGXZ BROWNFacility:B3Pycoj: 27-70-1599rrdywvneuhIG DOCTOR MISCFacility:P9Lwzle: 10-18-2022 End: 02-17-3344Gxrntx follow up visit related to original Steph Ramírez MD, PhDCVP PhysiciansStart: 10-18-2022 End: 50-80-9443Rfpswtsjv identifierAhmed M Alkaliby Work Phone: [facility] [place]Start: 10-18-2022 End: 25-46-9403Pbqdl M Alkaliby Work Phone: [facility] [place]Start: 10-17-2022 End: 61-47-6895Bfokdowai identifierAhmed M Alkaliby Work Phone: SurgiCareStart: 10-17-2022 End: 00-99-1281Chptm M Alkaliby Work Phone: SurgiCareStart: 10-14-2022 End: 72-92-6087Keoldx outpatient visit 25 minutesAhmed Yola Alkaliby Work Phone: RVBerry [place]Start: 09-27-2022 End: 54-42-3737Vaysxb outpatient visit 25 minutesAhmed Yola Alkaliby Work Phone: RV[facility] [place]Start: 08-17-2022 End: 50-72-9209vjkcffrigcNN VALENTE MOUKARBELFacility:Z4Fsqcq: 07-21-2022 End: 78-68-4793yhoigpizkfCI CHAMP BELLFacility:J7Rzogd: 07-04-2022 End: 54-55-0864ircaqwsuigNX CHAMP FERMINFacility:C9Nffuv: 06-29-2022 End: 50-03-9143Ocoadskust and management of inpatientZOHAIB AHMEDFacility:[facility] Start: 2022 End: 73-46-2062lydtpyldecFL CHAMP FERMINFacility:N9Jfwvr: 47-64-7717exyflnhaijMO CHAMP FERMINFacility:G9Nijew: 09-20-2021 End: 77-07-0777ftsbezyofjQxfirin Langenberg Other [place] [employer] Other Start: 09-46-3987Zhvnpr outpatient visit 15 minutes Geo Manuel Vascular SurgeryStart: 01-09-2021 End: 07-85-6153Pepieq outpatient visit 25 minutesPhiandreas Hicks Jr Work Phone: RVBerry Randle WildwoodStart: 10-10-2020 End: 24-48-9068Tstkbkwdb identifierPhiandreas Hicks Jr Work Phone: RVBerry Randle WildwoodStart: 10-10-2020 End: 50-68-9365Lappjy T Nelsen Jr Work Phone: RVBerry Randle WildwoodStart: 08-29-2020 End: 02-99-4283Zgfmem outpatient visit 25 minutesPhiandreas Hicks Jr Work Phone: RVBerry Randle WildwoodStart: 10-26-2019 End: 61-23-9377Ketcqrvmk Yunier Hicks Jr Work Phone: rvBerry FloreswoodStart: 10-26-2019 End: 76-08-4448OwkjmzDevon Hicks Jr Work Phone: rvBerry ZhaoStart: 09-22-2019 End: 33-55-3216Jpkvfwtps identifierDevon Hicks Jr Work Phone: rvBerry FremontStart: 09-22-2019 End: 26-54-3405RjupbsDevon Hicks Jr Work Phone: rvBerry [place]ontStart: 05-05-2019 End: 27-42-1929Cseiik consultation new/estab patient 60 minDevon Hicks Jr Work Phone: rvA [place] Procedures DateProcedureProcedure DetailPerforming ClinicianStart: 54-73-8795Ylvaq 1mg Pre- filled SyringeMichael PetersenStart: 19-28-1416Bkotdmhhdnkj njx pharmacologic agt spxMichael PetersenStart: 08-12-2025 End: 13-24-6289Hrqufortopdk ophthalmic imaging retinaSameer Al Breanna MDStart: 08-12-2025 End: 38-16-8089Iaaog 1mg Pre-filled SyringeSameer Al Breanna MDStart: 08-12-2025 Eylea 1mg Pre-filled SyringeMichael PetersenStart: 08-12-2025 End: 85-72-0705Wmubuhgwbdzp njx pharmacologic agt spxSameer Al Breanna MDStart: 08-12-2025 End: 24-78-1853Omomikqujn ultrasound dx b-scan w/wo a-scanSameer Vinod Carlos MD Start: 07-28-2025 End: 81-52-7025Bkuxkrfljzxo ophthalmic imaging retinaSameer Al Breanna MDStart: 07-28-2025 End: 78-64-7375Caivu 1mg Pre-filled SyringeSameer Vinod Breanna MDStart: 07-28-2025 Eylea 1mg Pre-filled SyringeMichael PetersenStart: 07-28-2025 End: 05-16-0267Fbtolqytjspe njx pharmacologic agt spxSameer Vinod Carlos MDStart: 07-28-2025 End: 02-94-5725Mdcbdjliov ultrasound dx b-scan w/wo a-scanSenrrique Soliman MD Start: 35-67-7623ROVKIBP POCT GLUCOMETERSNicjessica Gilmore DPM Work Phone: Start: 43-36-9783Hjjwoztrhs of footDaniel Bell II Work Phone: Start: 54-26-7317CEAMNJD POCT GLUCOMETERSNicholas A Brown DPM Work Phone: Start: 66-63-8246CAEPXUI POCT GLUCOMETERSNicholas Berry Brown DPM Work Phone: Start: 57-76-5996Vuqgthdvsl glycosylated w2kUidnzkJohnna Cedeño [facility] Work Phone: Start: 93-07-6330Txvkw metabolic panel calcium total Alexis Berry Gilmore DPM Work Phone: Start: 43-44-1975Sfgpaglu blood count with white cell differential, automatedAlexis Gilmore DPM Work Phone: Start: 07-12-2025 End: 20-48-9237Vjswb medical xm&eval comprhnsv estab pt 1/>VH (vitreous hemorrhage), right (CMS-HCC)Teena Delcid DO Work Phone: comment on above:VH (vitreous hemorrhage), right (CMS- HCC) (Primary Dx); Dry eyesStart: 59-66-5209UymyfutanhjTmcmlp Bell II Work Phone: Start: 49-62-8074YIUMJCAUF REQUEST FOR LAB Gerald Fox MD Work Phone: Start: 54-47-7980GntjeqjhfmwmubljatxvjupxyrVwgghg Berry II Work Phone: Start: 57-08-4749LYRYFXK POCT GLUCOMETERSDale Fox MD Work Phone: Start: 64-85-5435Febeyxomez glycosylated e2ePnusmb M Cesar [facility] Work Phone: Start: 73-50-1214Xxskvlhimsbhxib of right breastDafabioel Fermin II Work Phone: Start: 32-05-6141Iwuyujqljdf of right breastDakathi Bell II Work Phone: Start: 87-00-0612AC TOMOSYNTHESIS SCREENING Josse Bell MD Work Phone: Start: 67-71-2680HiplxbtekeqFcymji Berry MD Work Phone: Start: 20-75-8585GCUTR CULTURE 2Generic External Data ProviderStart: 48-33-8979IJRYV CULTURE 1Generic External Data ProviderStart: 98-17-5276YD scan of abdominal aortaDakathi Bell II Work Phone: Start: 21-89-7577Neufvmck tomography of abdomen and pelvis with contrastChamp Bell II Work Phone: Start: 42-58-8638Eryqn chest X-rayChamp Bell II Work Phone: Start: 92-52-0241Zrqemdhqext Panel (PCR)Champ Bell II Work Phone: Start: 94-10-9300Iqguo nucleic acid assayDakathi Bell II Work Phone: Start: 02-15-2025 End: 91-04-6847Rcdkjwwnrahs ophthalmic imaging optic nerveTeena Delcid DO Work Phone: Start: 02-15-2025 End: 31-67-3656Iddaa medical xm&eval comprhnsv estab pt 1/>Proliferative diabetic [...] of both eyes; Dry eyesStart: 01-05-2025 End: 24-47-8365Fixrdwdqqprk ophthalmic imaging retinaTrace Ramírez MD, PhD Start: 01-05-2025 End: 52-22-7564Lybpw 1mg Pre-filled SyringeTrace Ramírez MD, PhDStart: 10-99-5651Gqaxy 1mg Pre-filled SyringeZackl Lindatart: 01-05-2025 End: 75-37-2261Giakvwtpgvfv Injection Of Phamacologic AgentTrace Ramírez MD, PhDStart: 70-42-8894Kpanpofdinln Injection Of Phamacologic AgentZackl Darrell Start: 01-05-2025 End: 66-91-4843Xbvbwlfxrnen njx pharmacologic agt spxTrace Ramírez MD, PhD Start: 90-44-3518Eavrqpawug glycosylated i5rJsgtfoJohnna Cedeño NP Work Phone: Start: 92-64-4048DQE LIPID PROFILE (FASTING)Generic External Data ProviderStart: 30-47-7523KAQ CMP (CMP) (FOR REMOTE [facility] USE)Generic External Data ProviderStart: 10-21-2024 End: 56-57-4538Sgufr 1mg Pre-filled Neo Ramírez MD, PhDStart: 35-83-8114Vivxz 1mg Pre-filled SyringeZackl Lindatart: 10-21-2024 End: 76-00-2751Uarzpflkpju angrph w/lukee i&r angela/Mary Ramírez MD, PhDStart: 10-21-2024 End: 63-44-9637Bjxkbdwhtwbh Injection Of Phamacologic AgentTrace Ramírez MD, PhDStart: 43-07-6183Ghlhroojdumg Injection Of Phamacologic AgentMicnolan Ramírez Start: 10-21-2024 End: 27-21-2063Cxoigofuejca njx pharmacologic agt spxTrace Ramírez MD, PhD Start: 05-78-7637Lbxnasjuuk glycosylated p2fCncodn M Cesar [facility] Work Phone: Start: 08-04-2024 End: 10-80-1316Vlfgqwbptlmq ophthalmic imaging retinaTrace Ramírez MD, PhD Start: 08-04-2024 End: 07-86-1338Pwriq 1mg Pre-filled SyringeTrace Ramírez MD, PhDStart: 08-04-2024 End: 02-48-8790Cdychfvvvcpz Injection Of Phamacologic AgentTrace Ramírez MD, PhDStart: 18-60-9492Hxo-invas physiologic std extremity art 2 levelElena I Tabirta INSURANCE 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 Work Phone: Start: 32-35-8217Bpr bmtry prtl coher intrfrmtry io lens pwr Sasha Delcid DO Work Phone: Start: 06-30-2024 End: 25-50-0578Gihwlxzvidd injectionTrace Ramírez MD, PhDStart: 06-30-2024 End: 56-10-2429Fsgstyqtbwqo ophthalmic imaging retinaTrace Ramírez MD, PhD Start: 06-30-2024 End: 22-62-7380Aukvtctybzuh Injection Of Phamacologic AgentTrace Ramírez MD, PhDStart: 06-30-2024 End: 99-01-2782Nfastggpzdup njx pharmacologic agt kenroyxTrace Ramírez MD, PhD Start: 36-07-5922LSKPBWAE VASCULAR PROCEDUREMeedi Meka Francine DO Work Phone: Start: 06-21-2024 End: 25-62-4606Gqeyuxrzeda time activatedNely Curry MD Work Phone: Start: 06-21-2024 End: 28-16-8464Mmzersxqmcb time activatedNely Curry MD Work Phone: Start: 56-15-5818QJMYIGRE VASCULAR PROCEDUREGeneric External Data ProviderStart: 43-81-2340Zee-invasive physiologic study extremity 3 levlsGeneric External Data ProviderStart: 27-21-8699Ldfigncos aortogramII Champ Bell Work Phone: Start: 65-08-9027MljiibnuzvxMJ Champ Bell Work Phone: Start: 10-69-4225Igtyg volume recorder pneumoplethysmographyII Champ Bell Work Phone: Start: 25-96-1229Pterizf of coronary artery bypass graftingS/P CABG x 4Sherri Cesar [facility] MEDIC[facility] CH[facility]IR Work Phone: Start: 05-06-2024 End: 37-69-7818Xloem 1mg Pre-filled SyringeTrace Ramírez MD, PhDStart: 05-06-2024 End: 13-08-1004Fnivjp photography w/interpretation & reportTrace Ramírez MD, PhDStart: 05-06-2024 End: 66-48-1963Uxssinijznjs Injection Of Phamacologic AgentTrace Ramírez MD, PhDStart: 05-06-2024 End: 37-05-9029YJN No Charge Uni Or Mary Ramírez MD, PhDStart: 12-03-2023 SEGMENTAL BLOOD PRESSUREGeneric External Data ProviderStart: 06-04-2023H/O: hysterectomyHistory of hysterectomyNicholjose Gilmore DPM Work Phone: Start: 52-17-1278Trhwd limb angiographyII Champ Bell Work Phone: Start: 10-17-2022 End: 38-78-6965Kxp complex retina detach vitrect &membrane peelTrace Ramírez MD, PhDStart: 10-14-2022 End: 95-03-2919Ebrbi Sample DrugTrace Ramírez MD, PhDStart: 10-14-2022 End: 99-10-6397Vwcaftdgcypr njx pharmacologic agt spxTrace Ramírez MD, PhD Start: 10-14-2022 End: 67-89-0527Eqyilfxart ultrasound dx b-scan w/wo a-scanTrace Ramírez MD, PhDStart: 09-27-2022 End: 69-48-3765Ogwvvoaqcefo ophthalmic imaging retinaTrace Ramírez MD, PhD Start: 09-27-2022 End: 40-49-8791Jdysl 1mg Pre-filled SyringeTrace Ramírez MD, PhDStart: 09-27-2022 End: 81-84-8828Nbpupq Photos No Charge BilateralTrace Ramírez MD, PhDStart: 09-27-2022 End: 68-44-4259Dykgngegxrry njx pharmacologic agt spxTrace Ramírez MD, PhD Start: 94-77-7709JwwclibtdhlAcavk Hammad MD Work Phone: Start: 01-09-2021 End: 10-39-0589Eiecjwsqatnk ophthalmic imaging retinaTrace Ramírez MD, PhD Start: 10-10-2020 End: 11-77-0039Jwwycl photography w/interpretation & reportMicnolan Ramírez MD, PhDStart: 08-29-2020 End: 36-64-2324Ruokfcsehoud ophthalmic imaging retinaTrace Ramírez MD, PhD Start: 08-29-2020 End: 84-85-7076Tyhrm Sample DrugTrace Ramírez MD, PhDStart: 08-29-2020 End: 55-34-2286Jatysxsedmdu njx pharmacologic agt spxTrace Ramírez MD, PhD Start: 34-07-3530OcuexzhcfntKymowepv Brown DPM Work Phone: Start: 10-26-2019 End: 61-19-9632Afhtudwnklh angrph w/multiframe i&r uni/Mary Ramírez MD, PhDStart: 10-26-2019 End: 45-17-1851Jdjtnujow extensive retinopathy photocoagulationTrace Ramírez MD, PhDStart: 09-22-2019 End: 47-45-8703Ynyhycryjyor ophthalmic imaging retinaTrace Ramírez MD, PhD Start: 05-05-2019 End: 48-74-8758Coosln photography w/interpretation & reportTrace Ramírez MD, PhDHistory of coronary artery bypass graftingS/P CABG x 4Sthomas Cedeño FAMILY MEDICINE CHAIR Work Phone: Plan of Treatment DateCare ActivityDetailAuthorStart: 53-77-5923PNsC/Tdap/Td Vaccines (2 - Td or Tdap)DTaP/Tdap/Td Vaccines (2 - Td or Tdap)[facility] Start: 51-70-8160Zzoxtlzwf for malignant neoplasm of colonVeterans Health AdministrationStart: 47-78-6038Vopqo screening for proteinDiabetes: Urine Protein ScreeningNOMS HealthcareStart: 99-51-8803Tetcgocx screeningDiabetes: Retinopathy ScreeningNOCT HealthcareStart: 63-10-5964Fyvoyfawb for malignant neoplasm of breastMammogramNOCT HealthcareStart: 33-38-7778Amcctpuw screeningDiabetes: Retinopathy ScreeningNOCT HealthcareStart: 01-09-2026 End: 71-30-7223Hwoocdu encounter lvajpkouv29/02/2026 1:15 PM EST Office Visit [facility] [address] [place] [phone] Teena Delcid DO [address] [place] [address] [facility] EyeStart: 01-05-2026 Glaucoma screeningDiabetes: Retinopathy ScreeningNOCT HealthcareStart: 72-79-7383Olnoehh, Dixie 4 Mnth IO EYL OS/ OCTCVP Physicians Work Phone: Start: 12-01-2025 End: 42-88-2500Rxaftux encounter ixhdnsgcd07/22/2026 3:40 PM EST Office Visit [facility] [address] [facility] [address] [place] [address] Alexis Gilmore DPM [address] [facility] [address] [place] [address] N[facility]S CI PODIATRYStart: 11-17-2025 End: 51-75-6874Irinbxq encounter /08/2026 2:00 PM EST Office Visit [facility] [address] [place] [address] Alexis Gilmore DPM [address] [facility] 5 [place] [address] N[facility]S CI PODIATRYStart: 75-39-4699Zrmsyfxwhj A1c measurementDiabetes: Hemoglobin V5TJMXX HealthcareStart: 10-18-2025 End: 78-03-0672Abwaxnt encounter hoxoucptd77/09/2025 11:00 AM EST Office Visit [facility] [place] [facility] [address] [facility] [address] [place] [address] Johnna Cedeño NP [address] [place] [address] NOMS [place] [facility] MedinceStart: 09-20-2025 End: 89-95-6523Apzjswd encounter uefrxrhdk32/11/2025 10:30 AM EST Office Visit [facility] [place] [facility] [address] [facility] [address] [place] [address] Johnna Cedeño NP [address] [place] [address] ArrivedNOMS [place] Clark MedinceComment on above:ArrivedStart: 09-15-2025 End: 72-84-8728Qpnmqih encounter procedureNOMS CI PODIATRYComment on above: Contracture of right ankle (Primary Dx); Achilles tendinitis, right leg; Type 2 diabetes mellitus with hyperglycemia, with long-term current use of insulin (HCC); Pain due to onychomycosis of toenails of both feetStart: 35-11-4011Afxerfj, Dixie 6 Weeks IO EYL OD(2-3) NO OCTCVP [facility] Work Phone: Start: 08-25-2025 End: 41-99-6344Zwjwwoh encounter xpyoqjwyn76/16/2025 2:30 PM EDT Office Visit [facility] [address] [place] [address] Alexis Gilmore DPM [address] [facility] 5 [place] [address] NOMJulita ARCHIBALD PODIATRYStart: 08-24-2025 End: 87-03-6449ML Breast - bilateral ScreeningBilateral screening mammogram Imaging Routine Abnormal breast exam Encounter for screening mammogram for malignant neoplasm of breast Expected: 08/24/2025, Expires: 10/24/2026NOCT Healthcare Work Phone: Comment on above:Expected: 08/24/2025, Expires: 10/24/2026Start: 08-24-2025 End: 84-14-7180Aptkxzj encounter nxverhhaa29/15/2025 11:30 AM EDT Office Visit NOMJulita [facility] [address] [place] [address] Johnna Cedeño NP [address] [place] [address] ArrivedNOMS [place] Clark MedinceComment on above:ArrivedStart: 35-17-2505Olgaycgnse about tobacco useTobacco cessation counselingCVP PhysiciansStart: 94-28-5468Kfljhpm, Dixie Fu Appt Vision Changes Os - See Call NoCVP Physicians Work Phone: Start: 80-27-9158Ekhndhjvmi about tobacco useTobacco cessation counselingCVP PhysiciansStart: 07-27-2025 End: 14-18-1926Ujwltmy encounter procedureNO Ivy Espinoza PodiatryComment on above:Contracture of right ankle (Primary Dx); Achilles tendinitis, right legStart: 02-34-6360XlzxuuwkzAshtabula [facility] Start: 07-20-2025 End: 67-38-6304Nyydfpvw US Ankle Brachial Index (BRIDGER) Without ExerciseVascular US Ankle Brachial Index (BRIDGER) Without Exercise Vascular Ultrasound Routine PAD (peripheralartery disease) ([facility]) Expected: 07/20/2025 (Approximate), Expires: 07/20/2026[facility] Service Area Work Phone: Comment on above:Expected: 07/20/2025 (Approximate), Expires: 07/20/2026Start: 07-20-2025 End: 63-16-2317Kmmqecl encounter procedureNOMS [place] Clark MedinceComment on above:ArrivedStart: 07-19-2025 End: 22-42-7835Zeyxyut encounter procedureJFK [facility] Start: 64-73-4761Kpwxcqixtx A1c measurementDiabetes: Hemoglobin Q1WAZSI HealthcareStart: 07-14-2025 End: 76-84-9954Mxknflx encounter procedureNOMS CI FMStart: 61-12-9495Jjuncjda screeningDiabetes: Retinopathy ScreeningNOCT HealthcareStart: 07-12-2025 End: 97-26-0802Zhdujrg encounter fvrtlotnj08/02/2025 1:00 PM EDT Office Visit [facility] [address] [place] [address] Teena Delcid DO [address] [place] [address] ArrivedDelta Regional Medical Center EyeComment on above:ArrivedStart: 47-12-1822AOEYZ-19 Vaccine ( season)COVID-19 Vaccine ( season)[facility] HealthcareStart: 16-17-6506Jnfjrsjoy vaccinationInfluenza Vaccine (#1)[facility] HealthcareStart: 06-20-2025 End: 25-80-1731Oijsexo encounter /11/2025 11:00 AM EDT Office Visit [facility] [address] [facility] [address] [place] [address] Dale Fox MD [address] [place] [address] [address] [place] [address] [facility] Surgical AssociatesStart: 06-16-2025 End: 00-66-3030Xxomfic encounter procedureNOMS CI PODIATRYComment on above: Achilles tendinitis, right leg (Primary Dx); Contracture of right ankle; Diabetes mellitus due to underlying condition with diabetic polyneuropathy, unspecified whether terminal operator insulin use (HCC); Pain due to onychomycosis of toenails of both feetStart: 06-09-2025 End: 34-50-2341Qtodoki encounter hgdxdadnh41/31/2025 1:40 PM EDT Office Visit [facility] [address] [facility] [address] [place] [address] Alexis Gilmore DPM [address] [address] NOMS PODIATRYStart: 06-09-2025 End: 13-32-6991FwjzvdighToledo Hospitaltart: 06-08-2025 End: 24-38-7510Eftyqqd encounter stwwkmusf09/30/2025 2:00 PM EDT Office Visit [facility] [place] [facility] [address] [place] [address] Alexis Gilmore DPYola [address] [address] [facility] [place] PODStart: 36-53-2648Dggxnjpy screeningDiabetes: Retinopathy ScreeningPershing Memorial HospitalStart: 04-14-2025 End: 90-99-7290PXE panel - Blood by Automated countCBC Lab Routine Benign essential hypertension ([facility]) Type 2 diabetes mellitus with hyperglycemia, with long-term current use of insulin ([facility]) Expected: 04/14/2025 (Approximate), Expires: 04/14/2026NOHarry [facility]. [facility] Work Phone: Comment on above:Expected: 04/14/2025 (Approximate), Expires: 04/14/2026Start: 04-14-2025 End: 12-94-4287Odaxitwulkaiq metabolic 2000 panel - Serum or PlasmaComprehensive metabolic panel Lab Routine Benign essential hypertension ([facility]) Type 2 diabetes mellitus with hyperglycemia, with long-term current use of insulin ([facility]) Expected: 04/14/2025 (Approximate), Expires: 04/14/2026[facility] Healthcare Comment on above:Expected: 04/14/2025 (Approximate), Expires: 04/14/2026Start: 04-14-2025 End: 66-85-2289BOO Skeletal system Views for bone densityDEXA bone density Imaging Routine Estrogen deficiency Expected: 04/14/2025, Expires: 04/14/2026 NOMS HealthcareComment on above:Expected: 04/14/2025, Expires: 04/14/2026Start: 04-14-2025 End: 11-17-5975Bqhwv 1996 panel - Serum or PlasmaLipid panel Lab Routine 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 ([facility]) Mixed hyperlipidemia ([facility]) Expected: 04/14/2025 (Approximate), Expires: 04/14/2026[facility] HealthcareComment on above: Expected: 04/14/2025 (Approximate), Expires: 04/14/2026Start: 04-14-2025 End: 30-29-0842Fbyjykgaaslr/Creatinine panel in random UrineMicroalbumin / creatinine, urine ratio Lab Routine Poorly controlled diabetes mellitus ([facility]) Expected: 04/14/2025 (Approximate), Expires: 04/14/2026[facility] Healthcare Comment on above:Expected: 04/14/2025 (Approximate), Expires: 04/14/2026Start: 04-14-2025 End: 74-86-6222Payjmsngiwi [Units/volume] in Serum or PlasmaTSH Lab Routine Overweight Screening for thyroid disorder Expected: 04/14/2025 (Approximate), Expires: 04/14/2026[facility] HealthcareComment on above:Expected: 04/14/2025 (Approximate), Expires: 04/14/2026Start: 04-14-2025 End: 43-51-1496Spmikar encounter /05/2025 1:30 PM EDT Office Visit [facility] [address] [facility] [address] [place] [address] Johnna Cedeño [facility] [address] [facility] [address] [place] [address] [facility] FMComment on above:ArrivedStart: 05-23-2025Medicare Annual Wellness (AWV)Medicare Annual Wellness (AWV)NOMS HealthcareStart: 03-31-2025 End: 55-62-8171Kdqxfkg encounter ydeavhyie88/22/2025 1:00 PM EDT Office Visit [facility] [address] [facility] [address] [place] [address] Johnna Cedeño NP [address] [facility] [address] [place] [address] NOMS CI FMStart: 03-30-2025 End: 33-30-5269Jedslfj encounter tfyeevrko15/21/2025 2:30 PM EDT Office Visit [facility] [place] [facility] [address] [place] [address] Alexis Gilmore DPM [address] [address] Contracture of right ankle (Primary Dx); Achilles tendinitis, right leg; Diabetes mellitus due to underlying condition with diabetic polyneuropathy, unspecified whether terminal operator insulin use ([facility]); Pain due to onychomycosis of toenails of both feetNOMS [place] PODComment on above:Contracture of right ankle (Primary Dx); Achilles tendinitis, right leg; Diabetes mellitus due to underlying condition with diabetic polyneuropathy, unspecified whether skilled nursing insulin use ([facility]); Pain due to onychomycosis of toenails of both feetStart: 03-30-2025 End: 79-84-7699Gmbssve encounter maidczqlf91/21/2025 9:30 AM EDT Office Visit [facility] [address] [facility] [address] [place] [address] Johnna Cedeño NP [address] [facility] [address] [place] [address] NOMS CI FMStart: 62-05-2470Qjjfgroyaj A1c measurement Diabetes: Hemoglobin G1NQGQT HealthcareStart: 03-10-2025 End: 01-80-4815Mmxfjmx encounter fsfuxzaql18/01/2025 2:40 PM EDT Office Visit [facility] [address] [place] [address] Alexis Gilmore DPM [address] [address] NOMS CI PODIATRYStart: 03-01-2025 End: 47-52-9921FE Breast - bilateral ScreeningBilateral screening mammogram Imaging Routine Encounter for screening mammogram for breast cancer Expected: 03/01/2025, Expires: 05/01/2026NOCT Healthcare Work Phone: Comment on above:Expected: 03/01/2025, Expires: 05/01/2026Start: 02-23-2025 End: 13-48-7600Lrozsra encounter ldtlvvqao08/16/2025 10:30 AM EDT Office Visit [facility] [address] [facility] [address] [place] [address] Johnna Cedeño, FAMILY MEDICINE CHAIR [address] [place] [address] NOMS CI FMStart: 02-17-2025 End: 25-34-2855Qbhepar encounter /10/2025 9:40 AM EDT Office Visit [facility] [address] [place] [address] Alexis Gilmore DPM [address] [address] NOMS CI PODIATRYStart: 99-61-5731Yshbmgr, Dixie / 5-6wk JAYLEN BAIRD Physicians Work Phone: Start: 84-52-8401OibipcabdAshtabula [facility] Center Start: 94-88-7418KvslvjdkuToledo Hospitaltart: 26-65-6289Hmxntala admissionToledo Hospitaltart: 93-00-4721GzebxgwosToledo Hospitaltart: 02-15-2025 End: 28-08-4484Jcqdbey encounter procedureNOMS ZIMMERMAN OPHTComment on above:Arrived Start: 71-10-9738Tpowy screening for proteinDiabetes: Urine Protein Screening NOMS HealthcareStart: 01-13-2025 End: 59-38-8091Fdlcfkdb Gwwuscp0501/13/2025 11:50 AM EST Clinical Support [facility] [address] [place] [address] Alexis Gilmore DPM [address] [address] NOMS CI PODIATRYStart: 12-30-2024 End: 86-20-1082TI Breast - bilateral ScreeningBilateral screening mammogram Imaging Routine Encounter for screening mammogram for malignant neoplasm of breast Expected: 12/30/2024, Expires: 02/27/2026NOHarry [facility]. [facility] Work Phone: Comment on above:Expected: 12/30/2024, Expires: 02/27/2026Start: 12-30-2024 End: 27-50-4738Ncdvzgo encounter procedureNOMS CRISTELA FMComment on above:Heel spur, right (Primary Dx); Achilles tendinitis, right leg; Contracture of right ankleStart: 80-99-2562Cibvxdbaez A1c measurementDiabetes: Hemoglobin I2QLVTK HealthcareStart: 12-23-2024 End: 68-39-8221Jrbmlvnt Jwjywje9712/23/2024 9:50 AM EST Clinical Support [facility] [address] [facility] [address] [place] [address] Alexis Gilmore DPM [address] [address] NOMS CI PODIATRYStart: 12-09-2024 End: 66-90-8367Obbwqco encounter /30/2025 9:20 AM EST Office Visit [facility] [address] [place] [address] Alexis Gilmore DPM [address] [address] NOMS CI PODIATRYStart: 89-88-8285Xcmxqmyk mellitus screeningDiabetes ScreeningVeterans Health AdministrationStart: 10-15-2024 End: 70-00-5538Saaamus encounter procedureNOMS NB OPHTComment on above:Arrived Start: 09-30-2024 End: 06-45-4726Qohvjtv encounter procedureNOMS CI FMComment on above:Arrived Start: 09-30-2024 End: 02-21-2792Yqxhjeg encounter procedureNOMS CI PODIATRYComment on above:Dry gangrene (CMS/HCC) (Primary Dx); PVD (peripheral vascular disease) (CMS/HCC); Diabetes mellitus due to underlying condition with diabetic polyneuropathy, unspecified whether skilled nursing insulin use (CMS/HCC); Pain due to onychomycosis of toenails of both feetStart: 09-21-2024 End: 06-21-9697Gtbqvqg encounter vfzejobqd15/12/2024 11:50 AM EST Office Visit [facility] [place] [facility] [address] [place] [address] Alexis Gilmore DPM [address] [address] NOMS SC PODStart: 09-17-2024 End: 52-03-0633Svrjxis encounter kppsiywdi12/08/2024 11:50 AM EST Office Visit [facility] [place] [facility] [address] [place] [address] Alexis Gilmore DPM [address] [address] NOMS SC PODStart: 09-17-2024 End: 24-94-2154Yntbwkh encounter jmvgfxgek43/08/2024 9:30 AM EST Office Visit [facility] [address] [facility] [address] [place] [address] Teena Delcid, DO [address] [place] [address] ArrivedNOMS NB OPHTComment on above:ArrivedStart: 09-07-2024 End: 41-47-4042Blviibu encounter procedureNOMS NB OPHTComment on above:Arrived Start: 09-06-2024 End: 69-18-1559Lczqkvm encounter ojkvmyqpr43/28/2024 9:05 AM EDT Procedure Visit [facility] EXT DEP Teena Delcid, DO [address] [place] [address] NOMS EXT DEPStart: 08-31-2024 End: 20-19-5529Ztkfucq encounter tabrkpkjk80/22/2024 8:45 AM EDT Office Visit [facility] [address] [place] [address] Teena Delcid, DO [address] [place] [address] NOMuJlita NB OPHTStart: 08-24-2024 End: 78-92-3075Uyzelxb encounter procedureNOMS NB OPHTComment on above:Arrived Start: 08-23-2024 End: 57-45-4218Tbmqkjg encounter ziqwycuuv68/14/2024 8:45 AM EDT Procedure Visit [facility] EXT DEP Teena Delcid, DO [address] [place] [address] NOMS EXT DEPStart: 08-04-2024 Diann Patel 5-6 (5)wks Io Oct Eyl OuCVP Physicians Work Phone: Start: 07-22-2024 End: 51-25-2775Yrhfivbb US Ankle Brachial Index (BRIDGER) Without ExerciseVascular US Ankle Brachial Index (BRIDGER) Without Exercise Vascular Ultrasound Routine PAD (peripheralartery disease) ([facility]) S/P peripheral artery angioplasty Expected: 07/22/2024 (Approximate), Expires: 06/21/2026[facility] Work Phone: Comment on above:Expected: 07/22/2024 (Approximate), Expires: 06/21/2026Start: 07-20-2024 End: 94-94-8728Wlcahjj encounter procedureUH [facility] Jagr[facility] Start: 07-13-2024 End: 89-89-8715Gareqcf encounter procedureNOMS NB OPHTComment on above:Arrived Start: 49-03-2326Gyrfnrrgb vaccinationInfluenza Vaccine (#1)[facility] Start: 07-09-2024 End: 47-95-1430Gjvauqk encounter egxnacdgg71/30/2024 11:50 AM EDT [facility] [address] [place] [address] Alexis Gilmore, DPM [address] [address] PVD (peripheral vascular disease) ([facility]) (Primary Dx); Diabetes mellitus due to underlying condition with diabetic polyneuropathy, unspecified whether terminal operator insulin use ([facility]); Dry gangrene ([facility]); Onychomycosis; Toe pain, bilateralNOMS SC PODComment on above:PVD (peripheral vascular disease) ([facility]) (Primary Dx); Diabetes mellitus due to underlying condition with diabetic polyneuropathy, unspecified whether terminal operator insulin use ([facility]); Dry gangrene ([facility]); Onychomycosis; Toe pain, bilateralStart: 00-41-4639Ojekvrtluf A1c measurementDiabetes: Hemoglobin A4WRMBUPershing Memorial HospitalStart: 77-01-4406Arepcftmtp (US) doppler flow mapping of vein of upper limbUS venous mapping BI [facility] Centertart: 64-72-7324SZ Lower extremity veins - [facility] Centertart: 80-68-6858EF scan venography of lower limbsUS venous mapping BI lowerToledo Hospitaltart: 29-33-6400DD Upper extremity vein - bilateralToledo Hospitaltart: 66-69-3452Fqpprke referralCincinnati Va Medical Center Ctr Work Phone: Start: 14-58-7638IutmxeqsoAshtabula County Medical Center Start: 48-46-3263Runrr volume recorder pneumoplethysmographyUS arterial pvr rest [facility] Hospitalt[facility]: 11-66-7504QrfvbpxzsToledo Hospitaltart: 88-82-9513PXvX/Tdap/Td Vaccines (2 - Td or Tdap)DTaP/Tdap/Td Vaccines (2 - Td or Tdap)[facility] HealthcareStart: 30-30-9257Lrzxczwbam A1c measurementDiabetes: Hemoglobin [id number] HealthcareStart: 02-05-2024 End: 78-89-9736Qobfwie encounter rqusqvuqt56/28/2024 10:10 AM EDT Office Visit [facility] [address] [facility] [address] [place] [address] Alexis Gilmore, DPYola [address] [facility] [address] [place] [address] [facility]ODIATRYStart: 12-15-2023 End: 59-01-8162Jdnpjaz encounter naifnvpab71/05/2024 2:30 PM EST Office Visit [facility] [address] [facility] [address] [place] [address] Champ Bell MD [address] [facility] [address] [place] [address] [facility] FMStart: 49-60-6977Eypszymht vaccinationInfluenza Vaccine (#1)[facility] HealthcareStart: 08-70-1785Xpogqeold for malignant neoplasm of [facility] HospitalStart: 32-17-6589ZsbzgbgkuToledo Hospitaltart: 89-70-0805Pahfhtof screeningDiabetes: Retinopathy Screening [facility] HealthcareStart: 18-49-1376Paxesrkjjgwt Vaccine: 65+ Years (2 - PCV) Pneumococcal Vaccine: 65+ Years (2 - PCV)[facility] HealthcareStart: 10-06-2021 Pneumococcal Vaccine: 65+ Years (2 of 2 - PCV)Pneumococcal Vaccine: 65+ Years (2 of 2 - PCV)[facility] HealthcareStart: 43-83-8929Beuryfuhiakq Vaccine: 65+ Years (3 of 3 - PCV)Pneumococcal Vaccine: 65+ Years (3 of 3 - PCV)[facility] HospitalStart: 59-84-6475Nvadrrkpy for malignant neoplasm of breastMammogramGARFIELD MEMORIAL HOSPITAL Healthcare Start: 62-41-4242Pueiy screening for proteinDiabetes: Urine Protein Screening [facility] HospitalStart: 73-89-1239Plgrsoc cessation educationTobacco cessation counselingCVP PhysiciansStart: 25-51-5233Kcdwiho EducationHealth Information for You: MedlinePl~[facility] Work Phone: Start: 24-47-7324VUF patients and/or patients aged 60+ years (1 - 1-dose 60+ series)RSV patients and/or patients aged 60+ years (1 - 1-dose 60+ series)[facility]: 33-69-2501Cgebfk Vaccines (1 of 2)Zoster Vaccines (1 of 2)[facility]: 86-20-0597Bndmhemzc C screeningHepatitis C Screening [facility]: 40-09-5141OCVUY-19 Vaccine (#1)COVID-19 Vaccine (#1)[facility]: 35-03-4136Ccgtw panelLipid PanelACMC [facility] System [facility]: 1954Medicare Annual Wellness (AWV)Medicare Annual Wellness (AWV)[facility] HospitalStart: 1954Medicare Annual Wellness VisitMedicare Annual Wellness Visit (AWV)[facility]: 61-65-0501Kpmuiqjeh for malignant neoplasm of colonVeterans Health AdministrationBLOOD CULTURE 1BLOOD CULTURE 1 Lab Routine 02/18/2025 6:00 AM EDTNOMS HealthcareBLOOD CULTURE 2BLOOD CULTURE 2 Lab Routine 02/18/2025 6:34 AM EDTNOMS HealthcareGlucose [Mass/volume] in Serum or PlasmaPOCT Glucose Point of Care Testing - Docked Device Routine As needed (Lab) until discontinued starting 06/21/2024[facility] Service Area Work Phone: Comment on above:As needed (Lab) until discontinued starting 06/21/2024atient EducationC[facility]innati [facility] Work Phone: Patient referralCincinnati Va Medical [facility] Work Phone: US Eye+Orbit - bilateralIOL Biometry - OU - Both Eyes (CPT 28447) Ophthalmology Routine Pseudophakia Ordered: 10/15/2024[facility] Work Phone: comment on above:Ordered: 10/15/2024US [facility] SouthV[facility] US Ankle Brachial Index (BRIDGER) Without ExerciseVascular US Ankle Brachial Index (BRIDGER) Without Exercise Vascular Ultrasound Routine PAD (peripheralartery disease) ([facility] S/P peripheral artery angioplasty 07/20/2024 4:17 PM [facility] Service Area Work Phone: Immunizations Immunization DateImmunizationNotesCare OcvhnfhuKmsiolxa12-13-3205Mztfaqieb, High-dose Seasonal, Quadrivalent, Preservative FreeManjula CUEVAS Work Phone: [facility] HospitalBnfniajeey54-33-7598iorsipnvh virus vaccine, unspecified formulationDale Cronin MD Work Phone: [facility] HospitalMihxcxuonz43-63-5745lldnnag toxoid, reduced diphtheria toxoid, and acellular pertussis vaccine, adsorbedNicholas Brown DPM Work Phone: NOHarry S. Truman Memorial Veterans' HospitalQqoeggzpsd39-13-2652eyvqnptkk, high dose seasonal, preservative-freeNicholas Dillon DPM Work Phone: [facility] HospitalYtzhhvpwtc49-28-5705Gazomjvbu, High-dose Seasonal, Quadrivalent, Preservative FreeNicholas Dillon DPM Work Phone: noHarry S. Truman [facility] Veterans' HospitalZjrvvbuhdf44-31-8723gdsarctvu virus vaccine, unspecified formulationNickittyas Brown DPM Work Phone: [facility] HospitalTygekdtnbl40-53-7327Gafshevqe, Seasonal, Quadrivalent, AdjuvantedNicholas Brown DPM Work Phone: [phone] [place], [place] [address]Mwkbavspmz08-55-3162tajsozfxh, injectable, quadrivalent, preservative freeNicholas Brown DPM Work Phone: [phone] [place], [place] [address]Yukkrlonkq89-09-7472orxgwmivgrgu polysaccharide vaccine, 23 valentNicholas Brown DPM Work Phone: [phone] [place], [place] [address]Voqnjjoooz62-34-3732cxfhccqid, high dose seasonal, preservative-freeNicholas Brown DPM Work Phone: [phone] [place], [place] [address]Ptitkuvphw70-49-8441jjortbhzs, high dose seasonal, preservative-freeNicholas Brown DPM Work Phone: [phone] [place], [place] [address]Dyrmdsqgeg79-73-4961uuydzchb influenza, intradermal, preservative freeNicholas Brown DPM Work Phone: [phone] [place], [place] [address]Ftcaljfkiq36-08-7135ucnjlwnm influenza, intradermal, preservative freeNicholas Brown DPM Work Phone: [phone] [place], [place] [address]Vpvserohxy70-60-3996nfreimexb, injectable, quadrivalent, preservative freeNicholas Brown DPM Work Phone: [phone] [place], [place] [address]Uoftvuidsl56-50-9914nqipplkzeimk polysaccharide vaccine, 23 valentNicholas Brown DPM Work Phone: [phone] [place], [place] [address]Blgrzdphfh33-56-5998ngzyebqo influenza, intradermal, preservative freeNicholas Brown DPM Work Phone: [phone] [place], [place] [address]Dorxlciavz59-75-5766anublwazr, injectable, quadrivalent, preservative freeNicholas Brown DPM Work Phone: [phone] [place] [address] Payers DatePayer CategoryPayerPolicy [id number] [employer] [id number] [id number] 2015Medicare [id number] [id number] 1960 Kkyh-[id number] 2..1.946301.09268298-95-4472LcmtrvgXZU745W34077681430QoklphxJFM534J3948190-08-3744Aalipcb60806088 2.0.1.048736.3.579.2.11478-30-8561Cpyvxvm0511860 2.0.1.999589.3.579.2.01619-85-4468Enoslng2961942 2.0.1.395717.3.579.2.26801-29-2204Hddbcbv0305534 2.840.1.079475.3.579.2.00870-29-6389Fdebrqi0715229 2.16840.1.141779.3.579.2.67434-13-4101Mfgmyrc0040322 2.16840.1.597147.3.579.2.79648-79-2241Cxlgybv4508675 2.16840.1.892959.3.579.2.85956-77-5331Sxfxeyd1261356 2.16.840.1.705520.3.579.2.02555-57-6834Dkvhszr8424951 2.16.840.1.359591.3.579.2.84404-96-5735Prnclfk42858917 2.16.840.1.510528.3.579.2.516056-78-9605Xcfcmlh50578819 2.16.840.1.530503.3.579.2.437123-96-9034Wauvrpe68899628 2.16840.1.684429.3.579.2.785614-34-3221Nrwveuv05575495 2.16.840.1.810105.3.579.2.925145-69-5343Yiozael46837139 2.16840.1.241936.3.579.2.670431-00-9758Oqtmcfn45547954 2.16840.1.141776.3.579.2.425806-37-5938Mrmcqif0052610 2.16.840.1.020022.3.579.2.008839-14-2541Irdmvvt8673540 2.16840.1.210969.3.579.2.581905-25-5767Rzagwht7603974 2.16.840.1.033661.3.579.2.183301-91-5924Gfxzkik2473340 2.16.840.1.170762.3.579.2.383459-07-7140Thdwasz5684953 2.16.840.1.297666.3.579.2.461320-79-5713Jefqakq2421099 2.16840.1.673771.3.579.2.824901-72-5229Equtvye2258327 2.16840.1.599869.3.579.2.115250-26-1222Ulogdyl37501198 2.840.1.839308.3.579.2.928890-52-2347Sjadfrk58130592 2.840.1.748328.3.579.2.617891-51-9667Ylxjopn12630751 2.840.1.362274.3.579.2.419621-26-6199Ioxudaz24957803 2.840.1.171768.3.579.2.527455-27-1754Hfhrgdx64888301 2..1.830292.3.579.2.366063-17-6899Mwqtnmh74454482 2.0.1.364340.3.579.2.460216-92-0958Nrlixin33362538 2.840.1.979455.3.579.2.172280-39-2781Ejwjoyp09365329 2.840.1.602349.3.579.2.876978-64-2942Nmykawm89539627 2..1.449991.3.579.2.398749-39-4001Hqsaqic53074596 2.0.1.567261.3.579.2.242851-88-2648Jscldcp44565918 2.0.1.768354.3.579.2.441864-13-2360Fsajvie7742234 2.840.1.035296.3.579.2.050921-00-5228Idymctn1156418 2.840.1.750129.3.579.2.669441-42-1809Qfgepoe7447078 2.16.840.1.991688.3.579.2.014582-63-2826Vypisev9891450 2.16.840.1.175206.3.579.2.571582-18-3119Drdrplf5553004 2.16.840.1.505926.3.579.2.497103-72-3512Cgsbktk8286045 2..840.1.940399.3.579.2.638574-75-6702Gqqssfj5968766 2..840.1.484977.3.579.2.9074 1945Kbcsfcn7871136 2.16.840.1.810545.3.579.2.508327-90-7237Pzxzvir2818841 2..840.1.455636.3.579.2.899195-78-8594Cejzyke8699280 2.16.840.1.234577.3.579.2.7174Trtdpqf66872904 2.16.840.1.745226.3.579.2.531 Hllcbjr99631211 2.16.840.1.438202.3.579.2.471Sgtuctq05519051 2..840.1.960770.3.579.2.053Mthncvq76169266 2.840.1.288171.3.579.2.531 Gagkzgj06815767 2.840.1.427540.3.579.2.531 Social History DateTypeDetailFacilityStart: 12-11-2023 End: 63-59-2674Xoj Assigned At [facility] [employer] Other Start: 01-13-2023 End: 22-80-7055Uvymsqd smoking status NHISNever smoked tobacco (finding) [facility]: 62-30-2354Bpp Assigned At BirthFemale [facility]: 12-11-2023 End: 79-29-6571Vlmnhju intakeLifetime non-drinker (finding)[facility] HealthcareStart: 12-11-2023 End: 78-13-1502Mxdkjpu of Social functionNOMS HealthcareStart: 26-54-2731Xme Assigned At BirthNot on fileNOMS HealthcareStart: 06-30-2024 End: 78-09-2656Ltgeeot smoking status NHISLight tobacco smokerCVP Physicians Start: 13-78-0524Eadgqip of tobacco useLight cigarette smoker (1-9 cigs/day)[facility] PhysiciansStart: 07-18-0436Hgrbse-related behavior (observable entity)Caffeine Use DetailsCVP PhysiciansStart: 63-77-4436Gxtrfrl use and exposureSmoking Tobacco Use DetailsCVP PhysiciansStart: 05-05-2024 End: 48-00-4596Fcypaqp smoking status NHISEx-smokerNOMS Healthcare Work Phone: History of tobacco useCurrent smokerNOMS Healthcare History of tobacco useCigarette SmokerNOMS HealthcareStart: 06-15-2024 End: 60-24-4043Sycdhic use and exposureSmokeless tobacco non-userUnRiverview Health Institute Work Phone: How often to you have a drink containing alcohol?Never [facility]Start: 63-65-1138Hqo many standard drinks containing alcohol do you have on a typical day?Patient does not drinkVeterans Health Administration Work Phone: In the past 12 months, was there a time when you were not able to pay the mortgage or rent on time?NoVeterans Health Administration Work Phone: Start: 06-11-2024 End: 66-48-5932Dyqkwshv to SARS-CoV-2 (event)Not sureUnRiverview Health InstituteStart: 02-15-2025 End: 94-25-5350XugOwmxay (finding)[facility] CenterHow often do you need to have someone help you when you read instructions, pamphlets, or other written material from your doctor or pharmacy [SILS][facility] Work Phone: Tobacco smoking status NHISTobacco smoking consumption unknownSamaritan Hospitalexual OrientationLesbian, smart or homosexualCVP Physicians Work Phone: NEGATED: Highlighted rowAlcohol intakeAlcohol Use DetailsCVP Physicians Medical Equipment Procedure CodeEquipment CodeEquipment Original TextEquipment IdentifierDates [id number]: 12-30-2023 End: 64-70-9367QXY DIRECTED TO ADMINISTER INSULIN TWICE [id number]: 02-02-2024 Goals DatePatient GoalDesired Activity/State Functional Status GgwvRsbyzsraycPafeldMfezsdso38-22-3785Bqsgcfz Health Questionnaire 2 item (PHQ- 2) [Reported][facility] HospitalGpjbodpasc60-43-2704Dcumcak Health Questionnaire 2 item (PHQ- 2) [Reported][facility] HospitalUizlyjbxmq42-58-7176Ofsgqxm Health Questionnaire 2 item (PHQ- 2) [Reported][facility] HospitalHruvdmdfwm80-58-7813IPD-3 quick depression assessment panel [Reported.PHQ][facility] HospitalEkvkkxudpo88-52-3083Huxtvkz Health Questionnaire 2 item (PHQ- 2) [Reported][facility] HospitalTrhdwwxplc79-39-5625Ktphxuq Health Questionnaire 2 item (PHQ- 2) [Reported][facility] HospitalJtrvougacd46-77-3930Ijaidjfnvr statusPatient at [facility] Work Phone: [phone]uixqhqa statusPatient Not at [facility] Work Phone: [phone]zpou Health Questionnaire 2 item (PHQ-2) [Reported][facility] Mental Status FwusFbezbooldjYcteknYrxcazff28-10-0180Awqntpijm functionCognitive Status [facility] Work Phone: [phone]talfu functionCognitive Status [facility] Work Phone: Clinical Notes 09-20-2021 to 09-20-2025 Note Date & BvkdWmocNbqynvvd50-87-8266 History of Present illness Narrative* Johnna Cedeño, [...] mouth Daily 100 tablet 2 Continuous Glucose Military Logistics Specialist (Dexcom G7 Military Logistics Specialist) device 1 Device yearly 1 each 0 [...] Other Past Medical History: Diagnosis Date A-fib ([facility]) 2022 with RVR Anxiety Aortic stenosis 06/2022 Carotid artery disease Cataract CHF (congestive heart failure) ([facility]) 06/2022 Colon polyp 2016 Diverticulitis DM (diabetes mellitus) ([facility]) HLD (hyperlipidemia) HTN (hypertension) SD (myocardial infarction) ([facility]) NSTEMI, initial episode of care ([facility]) 2022 Retinal hemorrhage Past Surgical History: Procedure [...] No follow-ups on file. documented in this encounterPershing Memorial HospitalCznadhsauh48-37-5561 History of Present illness Narrative* Alexis Gilmore [...] History: Past Medical History: Diagnosis Date A-fib ([facility]) 2022 with RVR Anxiety Aortic stenosis 06/2022 Carotid artery disease Cataract CHF (congestive heart failure) ([facility]) 06/2022 Colon polyp 2016 Diverticulitis DM (diabetes mellitus) ([facility]) HLD (hyperlipidemia) HTN (hypertension) SD (myocardial infarction) ([facility]) NSTEMI, initial episode of care ([facility]) 2022 Retinal hemorrhage Medications: Current Outpatient Medications: [...] Disp: 100 tablet, Rfl: 2 Continuous Glucose Military Logistics Specialist (Dexcom G7 Military Logistics Specialist) device, 1 Device yearly, Disp: 1 each, [...] Strain: Low Risk (02/18/2025) Received from [facility] Overall Financial Resource Strain (CARDIA) Difficulty of Paying Living Expenses: Not hard at all Food Insecurity: No Food Insecurity (02/18/2025) Received from [facility] Hunger Vital Sign Within the past 12 months, you worried that your food would run out before you got the money to buymore.: Never true Ran Out of Food in the Last Year: Not on file Transportation Needs: No Transportation Needs (02/18/2025) Received from [facility] Transportation In the past 12 months, has lack of transportation kept you from medical appointments or from getting medications?: No Lack of Transportation (Non-Medical): Not on file Physical Activity: Inactive (06/22/2024) [facility] Exercise Vital Sign On average, how many days per week do you engage in moderate to strenuous exercise (like a brisk walk)?: 0 days On average, how many minutes do you engage in exercise at this level?: 0 min Stress: Stress Concern Present (12/03/2023) Received from [facility] [employer] [employer] - Occupational Stress Questionnaire Feeling of Stress : To some extent Social Connections: Moderately Isolated (12/03/2023) Received from [facility] Social Connection and Isolation Panel In a typical week, how many times do you talk on the phone with family, friends, or neighbors?: More than three times a week How often do you get together with friends or relatives?: More than three times a week How often do you attend sikh or rastafari services?: Never Do you belong to any clubs or organizations such as sikh groups, unions, fraternal or athletic groups, or school groups?: No How often do you attend meetings of the clubs or organizations you belong to?: Never Are you , , , , never , or living with a partner?: Intimate Partner Violence: Not At Risk (04/26/2025) Received from [facility] Humiliation, Afraid, Rape, and Kick questionnaire Within [...] Stability: Low Risk (02/18/2025) Received from [facility] Housing Stability Vital Sign In the last 12 months, was there a time when you were not able to pay the mortgage or rent on time?: No Number of Times Moved in the Last Year: Not on file At any time in the past 12 months, were you homeless or living in a skilled nursing (including now)?: No ROS: General: denies fever, [...] positive edema to left foot. NEURO: 5.07 [place] monofilament test diminished to digits and forefoot bilaterally 125Hz tuning fork diminished to 1st MPJ bilaterally ORTHO: Positive pain on palpation to toenails of the left 1,2,3,4,5 toes and right 1,2,3,4,5 toes Flexion deformities digits 2 through 5 bilateral Positive pain on palpation of right retrocalcaneal bursa and Achilles with negative palpable [place] ASSESSMENT 1. Contracture of right ankle 2. [...] timeframe Alexis Gilmore DPM documented in this encounterPershing Memorial HospitalBhocujhvjy77-96-0248 History of Present illness Narrative* Johnna Cedeño [...] these instructions. Chronic kidney disease, stage 3b ([facility]) This is a chronic medical condition that [...] mouth Daily 100 tablet 2 Continuous Glucose Military Logistics Specialist (Dexcom G7 Military Logistics Specialist) device 1 Device yearly 1 each 0 [...] [5] Past Medical History: Diagnosis Date A-fib ([facility]) 2022 with RVR Anxiety Aortic stenosis 06/2022 Carotid artery disease Cataract CHF (congestive heart failure) ([facility]) 06/2022 Colon polyp 2016 Diverticulitis DM (diabetes mellitus) ([facility]) HLD (hyperlipidemia) HTN (hypertension) SD (myocardial infarction) ([facility]) NSTEMI, initial episode of care ([facility]) 2022 Retinal hemorrhage [6] Past Surgical History: [...] HYSTERECTOMY W/ BILATERAL SALPINGOOPHORECTOMY documented in this encounterPershing Memorial HospitalOixsauzqyf51-15-6747 Evaluation note* Type Assessment Date assessment Vitreous [...] ation), bilateral: H26.493 [facility] Work Phone: 1(286) 967-638310-03-2025 History of Present illness Narrative* Encounter Date [...] bandage. Patient is wearing her reading glasses time checker since the surgery. Patient denies any pain [...] and left eye. [facility] Work Phone: [phone]) 962-462110-03-2025 Instructions* Date Instruction Additional Infor mation Impression/Plan [...] of right eye [facility] Work Phone: [phone] Evaluation note* Type Assessment Date assessment Type [...] : H43.11. Right [facility] Work Phone: [phone]) 726-570309-18-2025 History of Present illness Narrative* Encounter Date [...] bandage. Patient is wearing her reading glasses time checker since the surgery. Patient denies any pain [...] described as blurring. Patient denies eye pain. [facility] Physicians Work Phone: [phone]) 662-790709-18-2025 Instructions* Date Instruction Additional Infor ralphleena Impression/Plan [...] of right eye [facility] Work Phone: [phone] 777-937909-17-2025 History of Present illness Narrative* Alexis Gilmore, [...] History: Past Medical History: Diagnosis Date A-fib ([facility]) 2022 with RVR Anxiety Aortic stenosis 06/2022 Carotid artery disease Cataract CHF (congestive heart failure) ([facility]) 06/2022 Colon polyp 2016 Diverticulitis DM (diabetes mellitus) ([facility]) HLD (hyperlipidemia) HTN (hypertension) SD (myocardial infarction) ([facility]) NSTEMI, initial episode of care ([facility]) 2022 Retinal hemorrhage Medications: Current Outpatient Medications: [...] Disp: 100 tablet, Rfl: 2 Continuous Glucose Military Logistics Specialist (Dexcom G7 Military Logistics Specialist) device, 1 Device yearly, Disp: 1 each, [...] MG tablet, , Disp: , Rfl: HYDROcodone-acetaminophen (Rainelle) 5-325 MG tablet, Take 1 tablet by [...] positive edema to left foot. NEURO: 5.07 [place] monofilament test diminished to digits and [...] medication Alexis Gilmore DPM documented in this encounterPershing Memorial HospitalRxqufupgwc21-71-5414 History of Present illness Narrative* Johnna Cedeño, FAMILY MEDICINE CHAIR - 07/20/2025 11:30 AM EDT Images from [...] mouth Daily 100 tablet 2 Continuous Glucose Military Logistics Specialist (Dexcom G7 Military Logistics Specialist) device 1 Device yearly 1 each 0 [...] 3 hydrALAZINE (Apresoline) 100 MG tablet HYDROcodone-acetaminophen (Rainelle) 5-325 MG tablet Take 1 tablet by [...] Other Past Medical History: Diagnosis Date A-fib ([facility]) 2022 with RVR Anxiety Aortic stenosis 06/2022 Carotid artery disease Cataract CHF (congestive heart failure) ([facility]) 06/2022 Colon polyp 2016 Diverticulitis DM (diabetes mellitus) ([facility]) HLD (hyperlipidemia) HTN (hypertension) SD (myocardial infarction) ([facility]) NSTEMI, initial episode of care ([facility]) 2022 Retinal hemorrhage Past Surgical History: Procedure [...] current use of insulin, unspecified retinopathy severity ([facility]) - POCT glycosylated hemoglobin (Hb A1C) docked [...] mouth Daily 100 tablet 2 Continuous Glucose Military Logistics Specialist (Dexcom G7 Military Logistics Specialist) device 1 Device yearly 1 each 0 [...] 3 hydrALAZINE (Apresoline) 100 MG tablet HYDROcodone-acetaminophen ([place]) 5-325 MG tablet Take 1 tablet by [...] Other Past Medical History: Diagnosis Date A-fib ([facility]) 2022 with RVR Anxiety Aortic stenosis 06/2022 Carotid artery disease Cataract CHF (congestive heart failure) ([facility]) 06/2022 Colon polyp 2016 Diverticulitis DM (diabetes mellitus) ([facility]) HLD (hyperlipidemia) HTN (hypertension) SD (myocardial infarction) ([facility]) NSTEMI, initial episode of care ([facility]) 2022 Retinal hemorrhage Past Surgical History: Procedure [...] No follow-ups on file. documented in this encounterPershing Memorial HospitalFckomdbxug58-50-6837 History of Present illness Narrative* Alexis Gilmore [...] History: Past Medical History: Diagnosis Date A-fib ([facility]) 2022 with RVR Anxiety Aortic stenosis 06/2022 Carotid artery disease Cataract CHF (congestive heart failure) ([facility]) 06/2022 Colon polyp 2016 Diverticulitis DM (diabetes mellitus) ([facility]) HLD (hyperlipidemia) HTN (hypertension) SD (myocardial infarction) ([facility]) NSTEMI, initial episode of care ([facility]) 2022 Retinal hemorrhage Medications: Current Outpatient Medications: [...] Disp: 100 tablet, Rfl: 2 Continuous Glucose Military Logistics Specialist (Dexcom G7 Military Logistics Specialist) device, 1 Device yearly, Disp: 1 each, [...] Strain: Low Risk (02/18/2025) Received from [facility] Overall Financial Resource Strain (CARDIA) Difficulty of Paying Living Expenses: Not hard at all Food Insecurity: No Food Insecurity (02/18/2025) Received from [facility] Hunger Vital Sign Within the past 12 months, you worried that your food would run out before you got the money to buymore.: Never true Ran Out of Food in the Last Year: Not on file Transportation Needs: No Transportation Needs (02/18/2025) [facility] [facility] Transportation In the past 12 months, has lack of transportation kept you from medical appointments or from getting medications?: No Lack of Transportation (Non-Medical): Not on file Physical Activity: Inactive (06/22/2024) Received from [facility] Exercise Vital Sign Days of Exercise per Week: 0 days Minutes of Exercise per Session: 0 min Stress: Stress Concern Present (12/03/2023) Received from [facility] [place] [employer] - Occupational Stress Questionnaire Feeling of Stress : To some extent Social Connections: Moderately Isolated (12/03/2023) Received from [facility] Social Connection and Isolation Panel [NHANES] Frequency of Communication with Friends and Family: More than three times a week Frequency of Social Gatherings with Friends and Family: More than three times a week Attends Moravian Services: Never Active Member of Clubs or Organizations: No Attends Club or Organization Meetings: Never Marital Status: Intimate Partner Violence: Not At Risk (04/26/2025) Received from [facility] Humiliation, Afraid, Rape, and Kick questionnaire Fear of Current or Ex-Partner: No Emotionally Abused: No Physically Abused: No Sexually Abused: No Housing Stability: Low Risk (02/18/2025) Received from [facility] Housing Stability Vital Sign In the last 12 months, was there a time when you were not able to pay the mortgage or rent on time?: No Number of Times Moved in the Last Year: Not on file At any time in the past 12 months, were you homeless or living in a skilled nursing (including now)?: No ROS: Gastrointestinal: denies abdominal pain, ulcers, or changes in appetite or bowel habits Musculoskeletal: positive hx of arthritis, loss of strength, with positive history of back pain Cardiovascular: denies CP, palpitations, irregular rhythms. Positive history of CHF and aortic valve replacement with blood thinner and SD in the past OBJECTIVE LE EXAM: DERM: [...] positive edema to left foot. NEURO: 5.07 [place] monofilament test diminished to digits and forefoot bilaterally 125Hz tuning fork diminished to 1st MPJ bilaterally ORTHO: Positive pain on palpation to toenails of the left 1,2,3,4,5 toes and right 1,2,3,4,5 toes Flexion deformities digits 2 through 5 bilateral positive pain on palpation of right retrocalcaneal bursa and Achilles with negative palpable [place] ASSESSMENT 1. Contracture of right ankle 2. Achilles tendinitis, right leg 3. Diabetes mellitus due to underlying condition with diabetic polyneuropathy, unspecified whether terminal operator insulin use (HCC) PLAN Patient given prescription [...] alternatives, benefits, post op complications and terminal operator expectations were discussed including but not limited to: infection,bone infection,wound dehiscence hardware failure and irritation,wound dehiscence,delay union/mal union/non union of bone. RSDS,neuroma,duty limitations,DVT/PE, SD,nerve damage, scar, loss of sensation, swelling. Pt [...] 2025 Alexis Gilmore DPM documented in this encounterPershing Memorial [id number] History of Present illness Narrative* Teena Delcid DO - 07/12/2025 1:00 PM EDT Images from the original note were not included. Assessment/Plan Diagnoses and all orders for this visit: VH (vitreous hemorrhage), right [place] - Ms. Patel has a new VH of indeterminate time in right eye (OD). Last visit [facility] was 20/25. Advised seeing retina due to considerable decline in vision. 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 Hopefully she is not dealing with a TRD. Advised prompt return to [facility]. Dry eyes - Dry Eyes OU -- Environmental changes to minimize dryness and exposure and the use of artificial tears were recommended. documented in this encounterPershing Memorial [id number] History of Present illness Narrative* Alexis Gilmore [...] procedure in the past Pt presents to [facility] for follow up tx. Patient presents today [...] History: Past Medical History: Diagnosis Date A-fib ([facility]) 2022 with RVR Anxiety Aortic stenosis 06/2022 Carotid artery disease Cataract CHF (congestive heart failure) ([facility]) 06/2022 Colon polyp 2016 Diverticulitis DM (diabetes mellitus) ([facility]) HLD (hyperlipidemia) HTN (hypertension) SD (myocardial infarction) ([facility]) NSTEMI, initial episode of care ([facility]) 2022 Retinal hemorrhage Medications: Current Outpatient Medications: [...] Disp: 100 tablet, Rfl: 2 Continuous Glucose Military Logistics Specialist (Dexcom G7 Military Logistics Specialist) device, 1 Device yearly, Disp: 1 each, [...] Strain: Low Risk (02/18/2025) Received from [facility] Overall Financial Resource Strain (CARDIA) Difficulty of Paying Living Expenses: Not hard at all Food Insecurity: No Food Insecurity (02/18/2025) Received from [facility] Hunger Vital Sign Within the past 12 months, you worried that your food would run out before you got the money to buymore.: Never true Ran Out of Food in the Last Year: Not on file Transportation Needs: No Transportation Needs (02/18/2025) Received from [facility] Transportation In the past 12 months, has lack of transportation kept you from medical appointments or from getting medications?: No Lack of Transportation (Non-Medical): Not on file Physical Activity: Inactive (06/22/2024) Received from [facility] Exercise Vital Sign Days of Exercise per Week: 0 days Minutes of Exercise per Session: 0 min Stress: Stress Concern Present (12/03/2023) Received from [facility] [place] [employer] - Occupational Stress Questionnaire Feeling of Stress : To some extent Social Connections: Moderately Isolated (12/03/2023) Received from [facility] Social Connection and Isolation Panel [NHANES] Frequency of Communication with Friends and Family: More than three times a week Frequency of Social Gatherings with Friends and Family: More than three times a week Attends Moravian Services: Never Active Member of Clubs or Organizations: No Attends Club or Organization Meetings: Never Marital Status: Intimate Partner Violence: Not At Risk (04/26/2025) Received from [facility] Humiliation, Afraid, Rape, and Kick questionnaire Fear of Current or Ex-Partner: No Emotionally Abused: No Physically Abused: No Sexually Abused: No Housing Stability: Low Risk (02/18/2025) Received from [facility] Housing Stability Vital Sign In the last 12 months, was there a time when you were not able to pay the mortgage or rent on time?: No Number of Times Moved in the Last Year: Not on file At any time in the past 12 months, were you homeless or living in a skilled nursing (including now)?: No ROS: Gastrointestinal: denies abdominal pain, ulcers, or changes in appetite or bowel habits Musculoskeletal: positive hx of arthritis, loss of strength, with positive history of back pain Cardiovascular: denies CP, palpitations, irregular rhythms. Positive history of CHF and aortic valve replacement with blood thinner and SD in the past OBJECTIVE LE EXAM: DERM: [...] positive edema to left foot. NEURO: 5.07 [place] monofilament test diminished to digits and forefoot bilaterally 125Hz tuning fork diminished to 1st MPJ bilaterally ORTHO: Positive pain on palpation to toenails of the left 1,2,3,4,5 toes and right 1,2,3,4,5 toes Flexion deformities digits 2 through 5 bilateral positive pain on palpation of right retrocalcaneal bursa and Achilles with negative palpable [place] ASSESSMENT 1. Achilles tendinitis, right leg 2. Contracture of right ankle 3. Diabetes mellitus due to underlying condition with diabetic polyneuropathy, unspecified whether terminal operator insulin use (HCC) 4. Pain due to onychomycosis of toenails of both feet PLAN Pt to continue with ice to posterior right achilles region. Pt to take nsaids as needed PRN pain Patient returned to walking boot Discussed conservative and surgical treatment options for patient today including postoperative time frame and surgical procedure in detail. Patient may continue with conservative treatments including [id number] anti- inflammatories and other treatments suggested today. Patient may want to be s cheduled for surgical intervention in the near future. Patient have right heel Tenex procedure withAchilles tenotomy under ultrasonic guidance and [place] for postoperative pain and sees Dr. Jayme [...] gear Alexis Gilmore DPM documented in this encounterPershing Memorial [id number] NoteUT Cardiology - [facility] Subjective Diann Patel is a [...] aortic valve stenosis Coronary artery disease involving [place] coronary artery of [place] heart with angina pectoris PAF (paroxysmal atrial [...] myocardial infarction) (CMS/HCC) Coronary artery disease involving [place] heart Acute anemia Dry eyes Epiretinal membrane (ERM) of both eyes Carotid stenosis PCO (posterior capsular opacification), bilateral Weakness 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 [...] angioplasty. She was admitted 02/08/2024 to the [facility] with ?viral infection, weakness, low blood pressure, diarrhea and amlodipine, carvedilol, hydralazine, insulin and spironolactone were stopped. I resumed medications for hypertension on 05/10/2024. On 02/18/2025 she was admitted to [facility] with decompensated diastolic heart failure, anemia and type II NSTEMI. Cardiac catheterization did not show targets for revascula (more content not included)...[facility]07-16-2025 History of Present illness Narrative* Dale Cronin MD - 05/25/2025 11:00 AM EDT Images from the original note were not included. Diann Patel 1955 Diann Patel is a 69 y.o. female presents with chief complaint of Consult (Colonoscopy- Hx of colon polyps- Last colonoscopy was 2020 Jeannie/Regino Merrill at [facility] and she wants to have pt get an upper and lower scope done but in [place]. Pt would rather have this done here.) HPI: The patient is an 69-year-old female who presents to discuss EGD and colonoscopy. Patient has a history of anemia. She was in hospital in [place] about 3 months ago and required blood [...] (CELEXA) 20 mg, Oral, Daily Continuous Glucose Military Logistics Specialist (Dexcom G7 Military Logistics Specialist) device 1 Device, Does not apply, Yearly [...] HISTORY: Past Medical History: Diagnosis Date A-fib ([facility]) 2022 with RVR Anxiety Aortic stenosis 06/2022 Carotid artery disease Cataract CHF (congestive heart failure) ([facility]) 06/2022 Colon polyp 2016 Diverticulitis DM (diabetes mellitus) ([facility]) HLD (hyperlipidemia) HTN (hypertension) SD (myocardial infarction) ([facility]) NSTEMI, initial episode of care ([facility]) 2022 Retinal hemorrhage Social History Tobacco Use [...] colonoscopy were discussed. We will contact her sql developer for approval to hold the Xarelto prior to the procedure. If the colonoscopy is normal, patient will not require another screening colonoscopy. documented in this encounterPershing Memorial [id number] NoteAre you on Oxygen? Yes or No If yes, notify Dr. Light If yes, when do you wear it? All day, only when short of breath, only at night. How many liters are you on? Lavinia Sleepiness Scale Please rate the following as [...] sleep... Acting out your dreams... Difficulty ambulating... Incontinence...[facility]06-17-2025 [facility] Gastroenterology New Patient Visit - History & [...] anemia, referred by cardiology Recently admitted to [facility] this past February 2025 w/ decompensated [...] a h/o anemia. PREVIOUS LABS/IMAGING/ENDOSCOPY: CLN 07/12/2021: [facility] Attending MD: Sae Paz MD Procedure: [...] was done by the physician, nurse and engineering specialist technician using the patient's name, date and [...] B12/Folate/Iron studies: Lab Results Component Value Date [id number] 553 02/18/2025 FOLATE 35.0 02/18/2025 IRON 31 (L) 02/18/2025 TIBC 367 02/18/2025 UIBC 336.0 02/18/2025 IRONSAT 8 (L) 02/18/2025 FERRITIN 18.0 02/18/2025 IBD Biomarkers No results found for: CRP No results found for: SEDRATE Viral Hepatitis No results found for: HEPAIGM , HAV , HEPBSAG , HEPBSAB , HEPBEAB , HEPBIGM , HEPBCAB , HEPBCOREAB , HBVNAT , HCVSC (more content not included)...[facility]06-05-2025 History of Present illness Narrative* Johnna Cedeño FAMILY MEDICINE CHAIR - 04/14/2025 1:30 PM EDT Images from [...] clopidogrel (Plavix) 75 MG tablet Continuous Glucose Military Logistics Specialist (Dexcom G7 Military Logistics Specialist) device 1 Device yearly 1 each 0 [...] as PCP - General (Internal Medicine) Champ eBll MD as PCP - ACO Reach Lesa [...] Do you have a medical power of deputy attorney general?: No Objective : BP 122/62 Pulse 69 [...] 04/14/2026 Print requisition?: No 1. 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 [...] at this time. 8. Peripheral vascular disease ([facility]HCC) This is a chronic medical condition that [...] macular edema associated withtype 2 diabetes mellitus ([facility]/HCC) This is a chronic medical condition that is stable since last assessment. No changes in treatment are suggested at this time. 12. Type 2 diabetes mellitus with hyperglycemia, with long-term current use of insulin ([facility]) Discussed today the importance of proper diabetic [...] complication, unspecified asthma severity, unspecified whether persistent ([facility]) This is a chronic medical condition that is stable since last assessment. No changes in treatment are suggested at this time. 15. Arteriosclerosis of arterial coronary artery bypass graft ([facility]) This is a chronic medical condition that is stable since last assessment. No changes in treatment are suggested at this time. 16. Estrogen deficiency Await bone density - DEXA bone density; Future 17. Chronic migraine with aura without status migrainosus, not intractable ([facility]) This is a chronic medical condition that [...] edema associated with type 2 diabetes mellitus ([facility]/HCC) This is a chronic medical condition that is stable since last assessment. No changes in treatment are suggested at this time. 20. 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 No changes in treatment are suggested at this time. 21. Bilateral carotid artery stenosis This is a chronic medical condition that is stable since last assessment. No changes in treatment are suggested at this time. 22. New onset of congestive heart failure ([facility]) This is a chronic medical condition that is stable since last assessment. No changes in treatment are suggested at this time. 23. NSTEMI (non-ST elevated myocardial infarction) ([facility]) This is a chronic medical condition that [...] exams. 26. Routine general medical examination at [facility] facility Reviewed all relevant preventative screenings with the patient in detail. Medicare Wellness form completed and will be scanned into patient's chart. All needed testing was ordered. Will continue withyearly Medicare Wellness exams. 27. Screening for colon cancer Await colonoscopy - Ambulatory referral to General Surgery; Future Electronically signed by Johnna Cedeño NP on April 14, 2025 documented in this encounterPershing Memorial [id number] History of Present illness Narrative* Alexis Gilmore [...] History: Past Medical History: Diagnosis Date [place] 2022 with RVR Anxiety Aortic stenosis 06/2022 Carotid artery disease ([facility] [place] [place] Cataract CHF (congestive heart failure) ([facility] 06/2022 Colon polyp 2016 Diverticulitis DM (diabetes mellitus) ([facility] [place] [facility] HLD (hyperlipidemia) ([facility] HTN (hypertension) ([facility] [place] [place]) SD (myocardial infarction) ([facility] NSTEMI, initial episode of care ([facility] [place] 2022 Retinal hemorrhage Medications: [...] tablet, , Disp: , Rfl: Continuous Glucose Military Logistics Specialist (Dexcom G7 Military Logistics Specialist) device, 1 Device yearly, Disp: 1 each, [...] Strain: Low Risk (02/18/2025) Received from [facility] Overall Financial Resource Strain (CARDIA) Difficulty of Paying Living Expenses: Not hard at all Food Insecurity: No Food Insecurity (02/18/2025) Received from [facility] Hunger Vital Sign Within the past 12 months, you worried that your food would run out before you got the money to buymore.: Never true Ran Out of Food in the Last Year: Not on file Transportation Needs: No Transportation Needs (02/18/2025) Received from [facility] Transportation In the past 12 months, has lack of transportation kept you from medical appointments or from getting medications?: No Lack of Transportation (Non-Medical): Not on file Physical Activity: Inactive (06/22/2024) Received from [facility] Exercise Vital Sign Days of Exercise per Week: 0 days Minutes of Exercise per Session: 0 min Stress: Stress Concern Present (12/03/2023) Received from [facility] [place] [employer] - Occupational Stress Questionnaire Feeling of Stress : To some extent Social Connections: Moderately Isolated (12/03/2023) Received from [facility] Social Connection and Isolation Panel [NHANES] Frequency of Communication with Friends and Family: More than three times a week Frequency of Social Gatherings with Friends and Family: More than three times a week Attends Moravian Services: Never Active Member of Clubs or Organizations: No Attends Club or Organization Meetings: Never Marital Status: Intimate Partner Violence: Unknown (02/18/2025) Received from [facility] Humiliation, Afraid, Rape, and Kick questionnaire Fear of Current or Ex-Partner: No Emotionally Abused: Not on file Physically Abused: Not on file Sexually Abused: Not on file Housing Stability: Low Risk (02/18/2025) Received from [facility] Housing Stability Vital Sign In the last 12 months, was there a time when you were not able to pay the mortgage or rent on time?: No Number of Times Moved in the Last Year: Not on file At any time in the past 12 months, were you homeless or living in a skilled nursing (including now)?: No ROS: General: denies fever, [...] positive edema to left foot. NEURO: 5.07 [place] monofilament test diminished to digits and forefoot bilaterally 125Hz tuning fork diminished to 1st MPJ bilaterally ORTHO: Positive pain on palpation to toenails of the left 1,2,3,4,5 toes and right 1,2,3,4,5 toes Flexion deformities digits 2 through 5 bilateral diminished pain on palpation of right retrocalcaneal bursa and Achilles with negative palpable [place] ASSESSMENT 1. Contracture of right ankle 2. Achilles tendinitis, right leg 3. Diabetes mellitus due to underlying condition with diabetic polyneuropathy, unspecified whether skilled nursing insulin use ([facility]) 4. Pain due to onychomycosis of toenails of both feet PLAN Pt to continue with ice to posterior right achilles region. Pt to take nsaids as needed PRN pain Discussed conservative and surgical treatment options for patient today including postoperative time frame and surgical procedure in detail. Patient may continue with conservative treatments including [id number] anti- inflammatories and other treatments suggested today. [...] gear Alexis Gilmore DPM documented in this encounterPershing Memorial [id number] NoteUT Cardiology - [facility] Subjective Diann Patel is a 69 y.o. year old female patient being seen for follow up heart cath at [facility]. Patient states she not taking the [...] valve stenosis ??? Coronary artery disease involving [place] coronary artery of [place] heart with angina pectoris ??? PAF (paroxysmal [...] infarction) (CMS/HCC) ??? Coronary artery disease involving [place] heart ??? Acute anemia ??? Dry eyes [...] angioplasty. She was admitted 02/08/2024 to the [facility] with ?viral infection, weakness, low blood pressure, diarrhea and amlodipine, carvedilol, hydralazine, insulin and spironolactone were stopped. I resumed medications for hypertension on 05/10/2024. On 02/18/2025 she was admitted to [facility] with decompensated diastolic heart failure, anemia [...] to have some edilberto (more content not included)...[facility]04-22-2025 History of Present illness Narrative* Johnna Cedeño, FAMILY MEDICINE CHAIR - 03/01/2025 11:00 AM EDT Images from [...] clopidogrel (Plavix) 75 MG tablet Continuous Glucose Military Logistics Specialist (Dexcom G7 Military Logistics Specialist) device 1 Device yearly 1 each 0 [...] Other Past Medical History: Diagnosis Date A-fib [place] [place] 2022 with RVR Anxiety Aortic stenosis 06/2022 Carotid artery disease ([facility] [place] Cataract CHF (congestive heart failure) ([facility] 06/2022 Colon polyp 2016 Diverticulitis DM (diabetes mellitus) ([facility]) HLD (hyperlipidemia) ([facility] [place] HTN (hypertension) ([facility] [place]) SD (myocardial infarction) ([facility] [place] NSTEMI, initial episode of care ([facility] [place] 2022 Retinal hemorrhage Past [...] hyperglycemia, with long-term current use of insulin ([facility]) - insulin glargine (Lantus) 100 UNIT/ML pen; [...] referral to rheumatology. Vitreous hemorrhage, left eye ([facility]) This is a chronic medical condition that is stable since last assessment. No changes in treatment are suggested at this time. Vitreous hemorrhage, right eye (CMS/HCC) This is a chronic medical condition that is stable since last assessment. No changes in treatment are suggested at this time. Atherosclerosis of bear river arteries of right leg with ulceration of [...] No follow-ups on file. documented in this encounterPershing Memorial [id number] NoteiMEDS - Medication Counseling Note Who received [...] Bach, PharmD Candidate Maria Victoria Quigley, ParagD [facility] Outpatient [facility] - iMEDS 03/02/25[facility]04-15-2025 NoteHospital Medicine Discharge Summary Final Discharge Diagnosis: Non-STEMI type II can [place] to acute blood loss anemia Acute on [...] chest pain. She was transferred here from [place] for NSTEMI and new onset HFrEF. Vitals remarkable for BP 140/54, HR 73, on 6L oxygen. Labs notable for peak troponin 929. EKG showed NSR with non-specific ST changes. Echo on 08/18/2023 shows EF 55 to 60%, mild TR, mild mitral stenosis, mild MR, normal bioprosthetic aortic valve with no significant valvular or paravalvular regurgitation, mild IN. Patient treated for new onset CHF with [...] to acute anemia and likely type II SD. During hospital stay, patient had an episode [...] Center 03/02/2025 2:45 PM Valente Chacon MD [facility] Hos Your medication list START [...] Medications These medications were sent to [facility] [address] [place] [address] [address] [facility] [place] [address], [facility] [address] carvedilol 12.5 mg tablet dicyclomine 10 mg capsule furosemide 40 mg tablet Informa (more content not included)...[facility] 02-22-2025 Note02/22/25 0500 Home Oxygen Therapy Evaluation [...] patient was placed on 2L nc @ 01:21[facility] NotePatient admitted to the hospital for: New onset of congestive heart failure. Chart echo from 02/21/2025 reports: EF 65 %. Current echo report does Not qualify for Cardiac Rehab services per CMS eligibility criteria. A Cardiac Rehab referral diagnosis and code must also meet CMS criteria. Palmira Ballesteros RN, BSN Cardiology Outpatient Coordinator Cardiopulmonary RehabUnMount St. [facility]04-14-2025 NoteAs above [facility]04-14-2025 Note-Patient had angiogram on which showed patent [...] overnight desaturation study - Follow-up on the echoUnMount St. [facility]04-14-2025 Note- [address] home [address] [facility]04-14-2025 Note- In 2012Un[facility]04-14-2025 Note-Anticoagulation has been on hold, continue aspirin, repeat hemoglobin daily. No apparent source of bleeding. Patient states that she had her screening colonoscopiesUnMount St. [facility]04-14-2025 Note-Resume home insulin, adjust based on blood sugarsUnMount St. [facility] 02-21-2025 Note- On Eliquis 5mg BID at home, rate controlled on carvedilol 25mg BID. Rate controlled here. Anticoagulation has been on hold given low hemoglobin. Patient will need to be evaluated for left atrial appendage occlusion procedure outpatientUnMount St. [facility]04-14-2025 NoteHospital Medicine Daily Progress Note - 02/21/2025 10:56 AM; Room: [address] [place] [address] Admission: 02/18/2025 12:20 PM; Length of stay: 3 days THE HOSPITALIST TEAM PREFERS TO USE [employer] FOR NON-URGENT COMMUNICATION 7AM-7PM. IF I DO NOT RESPOND WITHIN 20 MINUTES OR URGENT MATTERS, PLEASE CALL THROUGH THE COKE DRAWER HAND. FROM 7PM-7AM, PLEASE PAGE [phone](COVR). Code Status: Full Code Barriers to Discharge: [...] the echo NSTEMI (non-ST elevated myocardial infarction) ([facility]) As above Coronary artery disease involving bear river heart As above S/P CABG x 4 - In 2012 Essential hypertension - Resume home medications PAF (paroxysmal atrial fibrillation) ([facility]) - On Eliquis 5mg BID at home, rate controlled on carvedilol 25mg BID. Rate controlled here. Anticoagulation has been on hold given low hemoglobin. Patient will need to be evaluated for left atrial appendage occlusion procedure outpatient Type 2 diabetes mellitus with hyperglycemia ([facility]) -Resume home insulin, adjust based on blood [...] Academy of Nutrition and Dietetics and the [place] Society of Enteral and Parenteral Nutrition, meets [...] 10*3/uL 207 -- 191 (more content not included)...[facility]04-14-2025 NotePhysical Therapy Physical Therapy Evaluation Patient Name: [...] aortic valve stenosis Coronary artery disease involving bear river coronary artery of bear river heart with angina pectoris PAF (paroxysmal atrial [...] myocardial infarction) (CMS/HCC) Coronary artery disease involving bear river heart Acute anemia Past Medical History: Diagnosis [...] Level of Function Prior Function Level of Quay: Independent with ADLs and functional transfers, Independent [...] Independent Static Standing Ba (more content not included)...[facility]04-14-2025 Note02/21/25 1011 Admission Assessment Questions Verify insurance [...] Status Interested Does the patient have a case monitor assigned to them through their insurance? Yes [...] able to send link and activate MyChart? NoUnMount St. [facility] Hospital04-14-2025 NoteOccupational Therapy Occupational Therapy Evaluation Patient Name: Diann Patel : 1955 Today's Date: 02/21/2025 Time In: 948 Time Out: 1000 from [place] ED with NSTEMI and concern for new onset HFrEF New onset of congestive heart failure (CMS/HCC) NSTEMI (non-ST elevated myocardial infarction) General Subjective: friendly and cooperative Patient Active Problem List Diagnosis Nonrheumatic aortic valve stenosis Coronary artery disease involving bear river coronary artery of bear river heart with angina pectoris PAF (paroxysmal atrial [...] diabetes mellitus (CMS/HCC) Poorly controlled diabetes mellitus ([facility]/HCC) Proliferative diabetic retinopathy associated with type 2 diabetes mellitus (CMS/HCC) 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 associated with type 2 diabetes mellitus (CMS/HCC) Staphylococcal infectious disease Type 2 diabetes mellitus with hyperglycemia (CMS/[facility]) Vitreous hemorrhage of right eye ([facility]) Mechanical complication of internal orthopedic device, implant or graft Pseudophakia New onset of congestive heart failure ([facility]) NSTEMI (non-ST elevated myocardial infarction) ([facility]) Coronary artery disease involving bear river heart Acute anemia Past Medical History: Diagnosis Date A-fib ([facility]) Abnormal ECG Aortic valve stenosis Arrhythmia Coronary artery disease Diabetes mellitus ([facility]/HCC) Hypertension Peripheral vascular disease Past Surgical History: [...] Equipment: Walker rolling, Cane, Wheelchair-manual (sc, gb, [facility]) Home Layout: Two level, Full bath main level, Able to live on main level with bedroom/bathroom Home Access: Stairs to enter with rails (2) Bathroom Shower/Tub: Tub/shower unit Prior Level of Function Prior Function Level of Quay: Independent with ADLs and functional transfers, Independent [...] such as br (more content not included)... [facility]04-14-2025 NoteAdult Nutrition Assessment: Name: Diann Patel Date: 1955 Date of Visit: 02/21/25 Admission Dx: New onset of congestive heart failure ([facility]) [I50.9] Reason for assessment: high risk Information obtained from: patient and medical record Past Medical History: Diagnosis Date A-fib ([facility]) Abnormal ECG Aortic valve stenosis Arrhythmia Coronary artery disease Diabetes mellitus ([facility]) Hypertension Peripheral vascular disease Current Medications: [Held [...] toast with butter, fruit cup. Thanks! 02/21/25 0798 02/18/25 6415 Regular Diet Heart Healthy/HTN, CABG,Stroke, (2gNA, low fat, low cholesterol) Diet effective now Question Answer Comment Room Service? Yes Fat restriction: Heart Healthy/HTN, CABG,Stroke, (2gNA, low fat, low cholesterol) 02/18/25 5931 Nutrition Risk: Low Nutrition Diagnosis: No nutrition diagnosis at this time Malnutrition Assessment: Per Registered Dietitian assessment and evaluation, patient does not currently meet criteria OR there is not enough information to support the diagnosis of malnutrition per the clinical criteria set by the Academy of Nutrition and Dietetics (AND) and the [place] Society of Enteral and Parenteral Nutrition (ASPEN). (more content not included)...[facility]04-14-2025 Note UTP CARDIOLOGY INPATIENT PROGRESS NOTE Reason [...] 0.04 12/04/2023 PLT 207 (more content not included)...[facility] 02-20-2025 Note- In 2012UnMount [facility]. [facility]04-13-2025 Note- Patient had angiogram on which [...] good urine output, would continue current diuretic doseUnMount St. Mary Hospital04-13-2025 Note-Anticoagulation has been on hold, continue aspirin, repeat hemoglobin daily. No apparent source of bleeding. Patient states that she had her screening colonoscopiesUnMount St. [facility] Hospital04-13-2025 Note-Resume home insulin, adjust based on blood sugarsUnMount St. [facility] Hospital 02-20-2025 Note- On Eliquis 5mg BID at home, rate controlled on carvedilol 25mg BID. Rate controlled here. Anticoagulation has been on hold given low hemoglobin. Patient will need to be evaluated for left atrial appendage occlusion procedure outpatientUnMount St. Mary Hospital04-13-[address] [facility]04-13-[address]25 Note- Resume home medicationsUnMount St. [facility]04-13-2025 NoteHospital Medicine Daily Progress Note - 02/20/2025 12:03 PM; Room: [address] [place], [place] [address]- Admission: 02/18/2025 12:20 PM; Length of stay: 2 days THE HOSPITALIST TEAM PREFERS TO USE N-1-1 [employer]AT FOR NON-URGENT COMMUNICATION 7AM-7PM. IF I DO NOT RESPOND WITHIN 20 MINUTES OR URGENT MATTERS, PLEASE CALL THROUGH THE [employer]. FROM 7PM-7AM, PLEASE PAGE [phone](COVR). Code Status: Full Code Barriers to Discharge: [...] diuretic dose NSTEMI (non-ST elevated myocardial infarction) ([facility]) As above Coronary artery disease involving bear river heart As above S/P CABG x 4 - In 2012 Essential hypertension - Resume home medications PAF (paroxysmal atrial fibrillation) ([facility]) - On Eliquis 5mg BID at home, rate controlled on carvedilol 25mg BID. Rate controlled here. Anticoagulation has been on hold given low hemoglobin. Patient will need to be evaluated for left atrial appendage occlusion procedure outpatient Type 2 diabetes mellitus with hyperglycemia ([facility]) -Resume home insulin, adjust based on blood [...] Academy of Nutrition and Dietetics and the [place] Society of Enteral and Parenteral Nutrition, meets [...] mmol/L 4.4 4.5 CHLORID (more content not included)...[facility] 02-20-2025 NoteUTP CARDIOLOGY INPATIENT PROGRESS NOTE Reason [...] CV Testing: Encounter Date: (more content not included)...[facility]04-12-2025 Note- On Eliquis 5mg BID at home, rate controlled on carvedilol 25mg BID. Rate controlled here. Anticoagulation has been on hold given low hemoglobin. Patient will need to be evaluated for left atrial appendage occlusion procedure outpatientUnMount St. [facility]04-12-[address] [facility]04-12-2025 Note-Anticoagulation has been on hold, continue aspirin, repeat hemoglobin daily. No apparent source of bleeding. Patient states that she had her screening colonoscopiesUnMount St. [facility]04-12-2025 Note- Resume home medicationsUnMount St. [facility]04-12-2025 Note-Patient had angiogram yesterday which showed [...] needed. At home she does not use oxygenUnMount St. Mary Hospital 02-19-2025 Note-Resume home insulin, adjust based on blood sugarsUnMount St. [facility] Hospital04-12-2025 Note- In 2012UnMount [facility]. [facility] 02-19-2025 NoteHospital Medicine Daily Progress Note - 02/19/2025 11:53 AM; Room: [address] [place] [address] Admission: 02/18/2025 12:20 PM; Length of stay: 1 days THE HOSPITALIST TEAM PREFERS TO USE [employer] FOR NON-URGENT COMMUNICATION 7AM-7PM. IF I DO NOT RESPOND WITHIN 20 MINUTES OR URGENT MATTERS, PLEASE CALL THROUGH THE [employer]. FROM 7PM-7AM, PLEASE PAGE [phone](COVR). Code Status: Full Code Barriers to Discharge: [...] use oxygen NSTEMI (non-ST elevated myocardial infarction) ([facility]) As above Coronary artery disease involving bear [place] heart As above S/P CABG x 4 - In 2012 Essential hypertension - Resume home medications PAF (paroxysmal atrial fibrillation) ([facility]) - On Eliquis 5mg BID at home, rate controlled on carvedilol 25mg BID. Rate controlled here. Anticoagulation has been on hold given low hemoglobin. Patient will need to be evaluated for left atrial appendage occlusion procedure outpatient Type 2 diabetes mellitus with hyperglycemia ([facility]) -Resume home insulin, adjust based on blood [...] Academy of Nutrition and Dietetics and the [place] Society of Enteral and Parenteral Nutrition, meets [...] 4.4 4.5 CHLORIDE mmol (more content not included)...[facility] 02-19-2025 NoteUTP CARDIOLOGY INPATIENT PROGRESS NOTE Reason [...] 02/19/2025 CALCIUM 8.3 (L (more content not included)...[facility] 02-18-2025 NoteCardiology Coronary angiogram shows stable CAD Labs show Hb 7.3 This is a drop compared to baseline In light of these findings, the elevated troponin is a Type II SD secondary to anemia Plan: Please transfuse 2 U PRBC Aim for Hb > 9 g/dL given CAD with elevated troponin Stop eliquis Stop plavix Maintain aspirin 81 mg daily for CAD Outpatient Watchman evaluationUnMount St. Mary Hospital04-11-2025 Note Patient: Diann Patel Procedure Information Date/Time: 02/18/251826 Procedure: Coronary angiography Location: [facility] DRYING FRAME OPERATOR 3 / [facility] (Cath) Providers: Valente Chacon [...] who consented to blood products. Additional Equipment RequestsSelect Medical [facility]ty [facility]04-[facility]-2025 Note Case was discussed with the RAMY [...] patient currently on heparin drip Sam Arita MDSelect Medical Specialty Hospital [facility]04-11-2025 Note- follow up anemia workup, possibly iatrogenic from recurrent blood draws over past 12 hours, but she is on eliquis/plavix at home. Follow up stool guaiac, b12, ferritin, folate, and tibc. - Will transfuse 1U in setting of ACS to maintain hgb >8. Lasix 40mg after unit. [facility]04-11-2025 Note- On Eliquis 5mg BID at home, rate controlled on carvedilol 25mg BID. Rate controlled hereUnMount St. Mary Hospital04-11-2025 Note- acutely decompensated w elevated trop. Hx of diastolic HF. Concern that this decompensation is 2/2 SD. - Sodium restricted diet - Lasix 40mg IV BID x2 doses, reassess in AM.[facility] 02-18-2025 Note- On regular insulin 10U w meals at home. Start sliding scale here. - On 80U nightly of lantus. Reduce to 20U tonight. Will be NPOUnMount St. Mary Hospital04-11-2025 Note- In 2012Un[facility]. [facility] 02-18-2025 Note- Resume home medicationsUnMount [facility]. [facility] 02-18-2025 Note- Heparin gtt - Trend trops/EKGs - Cardiology following' - NPO at midnight for cath in AM - SL nitroglycerin prnUnMount St. Mary Hospital04-11-2025 Note- Has been compliant on plavix/statinUnMount St. Mary Hospital04-11-2025 NoteHospital Medicine History and Physical 02/18/2025 2:33 PM THE HOSPITALIST TEAM PREFERS TO USE N-1-1 CHAT FOR NON-URGENT COMMUNICATION 7AM-7PM. IF I DO NOT RESPOND WITHIN 20 MINUTES OR URGENT MATTERS, PLEASE CALL THROUGH THE [employer]. FROM 7PM-7AM, PLEASE PAGE [phone](COVR). Chief Complaint No chief complaint on file. History of Present Illness Diann Patel is an 69 y.o. female w a PMH of CAD s/p CABG x4 in 2012, IDDM2, HTN, and diastolic HF who came from [place] ED with NSTEMI and concern for new onset HFrEF. Patient reports all was well yesterday but that she woke up this morning acutely short of breath. She denies associated CP, N/V, diaphoresis, pain to the jaw or shoulder, palpitations, or dyspepsia. At [place] she was requiring Bipap to maintain O2 [...] Plan New onset of congestive heart failure ([facility]/HCC) - acutely decompensated w elevated trop. Hx of diastolic HF. Concern that this decompensation is 2/2 SD. - Sodium restricted diet - Lasix 40mg IV BID x2 doses, reassess in AM. NSTEMI (non-ST elevated myocardial infarction) (CMS/HCC) - Heparin gtt - Trend trops/EKGs - Cardiology following' - NPO at midnight for cath in AM - SL nitroglycerin prn Coronary artery disease involving bear river heart - Has been compliant on plavix/statin S/P CABG x 4 - In 2012 Essential hypertension - Resume home medications PAF (paroxysmal atrial fibrillation) ([facility]) - On Eliquis 5mg BID at home, rate controlled on carvedilol 25mg BID. Rate controlled here Type 2 diabetes mellitus with hyperglycemia ([facility]) - On regular insulin 10U w meals [...] VTE Prophylaxis: IV heparin (more content not included)...[facility]04-09-2025 [place] [id number] Discharge Summary Signed Patient: Diann Patel MR#: [id number] : 1955 Acct:[id number] Age/Sex: 69 / F Adm Date: 5 Loc: 3T Room: 3S8840-[address]: Edvin Casper MD Copies to: [...] 7 to 10 days. She was recommended rwne-hqq-gqdifzu treatments for her abdominal discomfort, as this [...] Continuity of Care Document Health Concerns: A [facility] screening has identified you as FRAIL or [...] Strong:Four Ways to Beat the Frailty Risk [email or web address] [email or web address]-[email or web address]-ypej- zxwi-xq-wkbo-iaf-rbqieph-lwtc Exam Physical Exam Vital Signs: Temp Pulse [...] % (Auto) 57.2, Lymph % (Auto) 25.6, Jay % (Auto) 12.6, Eos % (Auto) 3.3, Baso % (Auto) 1.3, Nucleat RBC Rel Count 0.0, Neut # (Auto) 5.0, Lymph # (Auto) 2.3, Jay # (Auto) 1.1 H, Eos # (Auto) 0.3, Baso # (Auto) 0.1, PHA CreatinineClear 36.01, Sodium 137, Potassium 4.9, Chloride 105, Carbon Dioxide 26.2, Anion Gap 10.7, BUN 48 H, Creatinine 1.44 H, Est GFR (CKD-EPI) 39.128, Glucose 142 H D, Estimat Average Glucose 194, Hemoglobin A1c 8.4 H, Calcium 8.3 L, Iron 45 L, TIBC 433, Iron Saturation 10.4 L, Transferrin 309, Igjywilu86.5, Total Bilirubin 0.3, AST 17, ALT 15, [...] Appearance Clear, Urine pH 5.0, Ur Specific [place] 1.044H, Urine Protein Negative, Urine Glucose (UA) [...] Neut % (Auto) 65.2, Lymph % (Auto)21.3, Jay % (Auto) 9.1, Eos % (Auto) 3.4, Baso % (Auto) 1.0, Nucleat RBC Rel Count 0.0, Neut # (Auto) 6.9, Lymph # (Auto) 2.3, Jay # (Auto) 1.0 H, Eos # (Auto) 0.4, Baso # (Auto) 0.1, Monocyte DistWidth 18.23, PHA Creatinine Clear 36.12, Sodium 132 L, Potassium 5.2 H, Chloride 98, Carbon Ousrtwa56.8, Anion Gap 13.4, BUN 42 H, Creatinine [...] MD 5 1243 Signed By: 02/16/25 1303 [facility]04-09-2025 Radiology Diagnostic study note [facility] [address] [place] [address] [place] [address] Ultrasound Report Signed Patient: Diann Patel MR#: [id number] : 1955 Acct:[id number] Age/Sex: 69 / F ADM Date: 5 Loc: 3T Room: [address] [place] [address] Type: ADM INOo Attending Dr: Edvin Casper [...] Erwin Jr., D.O.02/16/2025 8:26 AM Dictation Location: [place] [address] Tech: Ana Maria Valdovinos Transcribed By: JOSUE 02/16/25825 Dictated By: Julio Cesar Erwin Jr, DO 02/16/25824 Signed By: 02/16/25825 [facility]04-09-2025 History and physical note Author Edvin Casper [facility] CenterNote Date/TimeApril 2024 10:23[place] [address] Hospitalist H&P Signed Patient: Diann Patel MR#: [id number] : 1955 Acct:[id number] Age/Sex: 69 / F Adm Date: 5 Loc: Room: [address] [place] [address] Type: ADM INOo Attending Dr: Edvin Casper [...] coming back from an eye appointment in [facility] when she started having right upper quadrant abdominal pain that came on all of a sudden, was sharp and increased to a 10/10 level very quickly. Patientdoes not normally follow-up here with her medical care. She presented to the [facility] urgent care, but she was too [...] thus they decided to call squad from [facility] urgent care parking lot. She does note [...] that which is noted above in the [facility] Medical History (Updated 02/15/25 @ 22:23 [...] List clean-up per request of Phys. [facility] H/O: hysterectomy Hx of aortic valve replacement 09/2022 Problem List clean-up per request of Phys. [facility] H[facility]O heart artery stent 2022 Problem List clean-up per request of Phys. [facility] History of appendectomy Problem List clean-up per request of Phys. [facility] Hx of hernia repair Problem List clean-up per request of Phys. [facility] History of heart bypass surgery 2012 Problem List clean-up per request of Phys. [facility] History of tonsillectomy Problem List clean-up [...] % (Auto) 21.3 % (.) 02/15/25 14:30 Jay % (Auto) 9.1 % (.) 02/15/25 14:30 Eos % (Auto) 3.4 % (.) 02/15/25 14:30 Baso % (Auto) 1.0 % (.) 02/15/25 14:30 Nucleat RBC Rel Count 0.0 /100 WBC (0-0.5) 02/15/25 14:30 Neut # (Auto) 6.9 x10E3/uL (1.8-7.7) 02/15/25 14:30 Lymph # (Auto) 2.3 x10E3/uL (1.00-4.8) 02/15/25 14:30 Jay # (Auto) 1.0 x10E3/uL (0.0-0.8) H 02/15/25 [...] By: <Electronically signed by Edvin Casper MD> 02/15/257 [facility] Work Phone: 1(295) 193-619004-08-2025 [place] [address] Hospitalist H&P Signed Patient: Diann Patel MR#: [id number] : 1955 Acct:[id number] Age/Sex: 69 / F Adm Date: 5 Loc: Room: [address] [place] [address] Type: ADM INOo Attending Dr: Edvin Casper [...] coming back from an eye appointment in [facility] when she started having right upper quadrant abdominal pain that came on all of a sudden, was sharp and increased to a 10/10 level very quickly. Patientdoes not normally follow-up here with her medical care. She presented to the [facility] urgent care, but she was too [...] thus they decided to call squad from [facility] urgent care parking lot. She does note [...] that which is noted above in the [facility] Medical History (Updated 02/15/25 @ 22:23 [...] % (Auto) 21.3 % (.) 02/15/25 14:30 Jay % (Auto) 9.1 % (.) 02/15/25 14:30 Eos % (Auto) 3.4 % (.) 02/15/25 14:30 Baso % (Auto) 1.0 % (.) 02/15/25 14:30 Nucleat RBC Rel Count 0.0 /100 WBC (0-0.5) 02/15/25 14:30 Neut # (Auto) 6.9 x10E3/uL (1.8-7.7) 02/15/25 14:30 Lymph # (Auto) 2.3 x10E3/uL (1.00-4.8) 02/15/25 14:30 Jay # (Auto) 1.0 x10E3/uL (0.0-0.8) H 02/15/25 [...] Edvin Casper MD 2110 Signed By: 02/15/252222 [facility]04-08-2025 Evaluation note* Diagnosis Onset Date Resolution Status Admit Date Abdominal pain acuteApril 2024 6:24pmWeaknessacuteApril 2024 6:24pm [facility] Work Phone: [phone]) 705-607304-08-2025 [facility]iology [facility] [place] [address] CT Scan Report Signed Patient: Diann Patel MR#: [id number] : 1955 Acct:[id number] Age/Sex: 69 / F ADM Date: 5 Loc: 3T Room: [address] [place] [address] Type: ADM INOo Attending Dr: Edvin Casper MD Copies to: MD Ross Higgins INSURANCE CLAIMS ADJUSTER~ Ordering Provider: Ross Martinez APRN Date of [...] Manjula Flannery M.D.02/15/2025 4:03 PM Dictation Location: [place] [address] Transcribed By: JSOUE 02/15/25 1600 Dictated By: Manjula Flannery MD 02/15/25 1554 Signed By: 02/15/25 1606 [facility] Work Phone: 1([phone]) 968-301204-08-2025 Discharge summary Author Edvin Casper [facility] Center[facility] Date/TimeApril 2024 1:[place]pm[place] [id number] Discharge Summary Signed Patient: Diann Patel MR#: [id number] : 1955 Acct:[id number] Age/Sex: 69 / F Adm Date: 5 Loc: Room: [address] [place] [address]: Edvin Casper MD Copies to: MD Edvin Robins II, MD~ Providers Date of Discharge: 02/16/25 Discharging Provider: Edvin Casepr Primary Care Provider: Champ Bell Consults: 02/15/25 [...] 7 to 10 days. She was recommended zixl-wdt-sjspfhm treatments for her abdominal discomfort, as this [...] Continuity of Care Document Health Concerns: A [facility] screening has identified you as FRAIL or [...] Strong:Four Ways to Beat the Frailty Risk [email or web address]-dxgi- rmoi-xo-rrbx-ehu-mcsumsp-fatx Exam Physical Exam Vital Signs: Temp Pulse [...] % (Auto) 57.2, Lymph % (Auto) 25.6, Jay % (Auto) 12.6, Eos % (Auto) 3.3, Baso % (Auto) 1.3, Nucleat RBC Rel Count 0.0, Neut # (Auto) 5.0, Lymph # (Auto) 2.3, Jay # (Auto) 1.1 H, Eos # (Auto) 0.3, Baso # (Auto) 0.1, PHA CreatinineClear 36.01, Sodium 137, Potassium 4.9, Chloride 105, Carbon Dioxide 26.2, Anion Gap 10.7, BUN 48 H, Creatinine 1.44 H, Est GFR (CKD-EPI) 39.128, Glucose 142 H D, Estimat Average Glucose 194, Hemoglobin A1c 8.4 H, Calcium 8.3 L, Iron 45 L, TIBC 433, Iron Saturation 10.4 L, Transferrin 309, Vmltkdlb02.5, Total Bilirubin 0.3, AST 17, ALT 15, [...] Appearance Clear, Urine pH 5.0, Ur Specific [place] 1.044H, Urine Protein Negative, Urine Glucose (UA) [...] Neut % (Auto) 65.2, Lymph % (Auto)21.3, Jay % (Auto) 9.1, Eos % (Auto) 3.4, Baso % (Auto) 1.0, Nucleat RBC Rel Count 0.0, Neut # (Auto) 6.9, Lymph # (Auto) 2.3, Jay # (Auto) 1.0 H, Eos # (Auto) 0.4, Baso # (Auto) 0.1, Monocyte DistWidth 18.23, PHA Creatinine Clear 36.12, Sodium 132 L, Potassium 5.2 H, Chloride 98, Carbon Zxwabjg46.8, Anion Gap 13.4, BUN 42 H, Creatinine [...] signed by Edvin Casper MD> 02/16/25 1303 [facility] Work Phone: [phone] 381-639604-08-2025 NoteRight Eye Quality was good. Scan locations included subfoveal. Progression has been stable. Findings include normal observations. Left Eye Quality was good. Scan locations included subfoveal. Progression has been stable. Findings include normal observations. Notes Good scan with normal appearancePershing Memorial [id number] History of Present illness Narrative* Teena Delcid, [...] (OD). Stable. - sees ANGEL Hernandez in [place] for antiVEGF both eyes (OU). - Diabetes [...] artificial tears were recommended. documented in this encounterPershing Memorial [id number] Telephone encounter Note* Telephone Encounter - FAITH Holcomb - 02/03/2025 11:09 AM EDT Dexcom sensor sent. NOMS [id number] Miscellaneous Notes* Telephone Encounter - FAITH Holcomb - 02/03/2025 11:09 AM EDT Dexcom sensor sent. 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 Bilateral. Condition: established, stable OD, active/worsening OS [facility] Work Phone: [phone] History of Present illness Narrative* Encounter Date [...] bandage. Patient is wearing her reading glasses time checker since the surgery. Patient denies any pain [...] described as blurring. Patient denies eye pain. [facility] Work Phone: [phone] Instructions* Date Instruction Additional Infor dimple Impression/Plan [...] of right eye [facility] Work Phone: [phone] History of Present illness Narrative* Johnna Cedeño, [...] chasity is being taken. She sees a line palletizer.Eye exam is current (had cataract surgery). Current [...] (ten) days 3 each 11 Continuous Glucose Military Logistics Specialist (Dexcom G7 Military Logistics Specialist) device 1 Device yearly 1 each 0 [...] Other Past Medical History: Diagnosis Date A-fib ([facility]) 2022 with RVR Anxiety Aortic stenosis 06/2022 Carotid artery disease ([facility] Cataract CHF (congestive heart failure) ([facility] 06/2022 Colon polyp 2016 Diverticulitis DM (diabetes mellitus) ([facility]) HLD (hyperlipidemia) ([facility] HTN (hypertension) ([facility]) SD (myocardial infarction) ([facility] NSTEMI, initial episode of care ([facility] 2022 Retinal hemorrhage Past [...] orders for this visit: Paroxysmal atrial fibrillation ([facility]) - dabigatran etexilate (Pradaxa) 150 MG capsule; [...] patient in getting this medication. 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 [...] No follow-ups on file. documented in this encounterPershing Memorial [id number] History of Present illness Narrative* Alexis Gilmore, [...] History: Past Medical History: Diagnosis Date A-fib ([facility]) 2022 with RVR Anxiety Aortic stenosis 06/2022 Carotid artery disease ([facility]) Cataract CHF (congestive heart failure) ([facility] 06/2022 Colon polyp 2016 Diverticulitis DM (diabetes mellitus) ([facility]) HLD (hyperlipidemia) ([facility] HTN (hypertension) ([facility] SD (myocardial infarction) ([facility] NSTEMI, initial episode of care ([facility] 2022 Retinal hemorrhage Medications: [...] Disp: 3 each, Rfl: 11 Continuous Glucose Military Logistics Specialist (Dexcom G7 Military Logistics Specialist) device, 1 Device yearly, Disp: 1 each, [...] Resource Strain: Low Risk (06/22/2024) Received from [facility] Overall Financial Resource Strain (CARDIA) Difficulty of Paying Living Expenses: Not hard at all Food Insecurity: No Food Insecurity (12/03/2023) Received from [facility], [facility], [facility] Hunger Vital Sign Within the past 12 months, you worried that your food would run out before you got the money to buymore.: Never true Within the past 12 months, the food you bought just didn't last and you didn't have money to get more.: Never true Transportation Needs: No Transportation Needs (06/22/2024) Received from [facility] PRAPARE - Transportation Lack of Transportation (Medical): No Lack of Transportation (Non-Medical): No Physical Activity: Inactive (06/22/2024) Received from [facility] Exercise Vital Sign Days of Exercise per Week: 0 days Minutes of Exercise per Session: 0 min Stress: Stress Concern Present (12/03/2023) Received from [facility], [facility] [place] of Occupational Health - Occupational Stress Questionnaire Feeling of Stress : To some extent Social Connections: Moderately Isolated (12/03/2023) Received from [facility], [facility] Social Connection and Isolation Panel [NHANES] Frequency of Communication with Friends and Family: More than three times a week Frequency of Social Gatherings with Friends and Family: More than three times a week Attends Moravian Services: Never Active Member of Clubs or Organizations: No Attends Club or Organization Meetings: Never Marital Status: Intimate Partner Violence: Not At Risk (12/03/2023) Received from [facility], [facility] Humiliation, Afraid, Rape, and Kick questionnaire Fear of Current or Ex-Partner: No Emotionally Abused: No Physically Abused: No Sexually Abused: No Housing Stability: Low Risk (06/22/2024) Received from [facility] Housing Stability Vital Sign Unable to Pay [...] positive edema to left foot. NEURO: 5.07 [place] monofilament test diminished to digits and forefoot bilaterally 125Hz tuning fork diminished to 1st MPJ bilaterally ORTHO: Positive pain on palpation to toenails of the left 1,2,3,4,5 toes and right 1,2,3,4,5 toes Flexion deformities digits 2 through 5 bilateral Positive pain on palpation of right retrocalcaneal bursa and Achilles with negative palpable [place] ASSESSMENT 1. Heel spur, right 2. Achilles [...] Patient may continue with conservative treatments including zmaa-wrh-spvogke anti- inflammatories and other treatments suggested today. Patient may want to be s cheduled for surgical intervention in the near future. Discussed possible Tenex procedure with right Achilles surgery in the future and possible physical therapy and discussed physical therapy needs detail and will reassess in 2 weeks Alexis Gilmore DPM documented in this encounterPershing Memorial [id number] NoteUT Cardiology - [facility] Subjective Diann Patel is a 69 y.o. year old female patient being seen for 4 mo follow up CAD, PAF, PAD, and aortic valve stenosis s/p TAVR. Had labs a few days ago. Denies chest pain, SOB, palpitations, and bleeding on Eliquis. Patient Active Problem List Diagnosis Nonrheumatic aortic valve stenosis Coronary artery disease involving [place] coronary artery of [place] heart with angina pectoris (CMS/HCC) PAF (paroxysmal [...] angioplasty. She was admitted 02/08/2024 to the [facility] with ?viral infection, weakness, low blood [...] on the left side (more content not included)...[facility]01-30-2025 History of Present illness Narrative* Alexis Gilmore, [...] History: Past Medical History: Diagnosis Date A-fib ([facility]) 2022 with RVR Anxiety Aortic stenosis 06/2022 Carotid artery disease ([facility] Cataract CHF (congestive heart failure) ([facility] 06/2022 Colon polyp 2016 Diverticulitis DM (diabetes mellitus) ([facility] HLD (hyperlipidemia) ([facility] HTN (hypertension) ([facility] SD (myocardial infarction) ([facility] NSTEMI, initial episode of care ([facility] 2022 Retinal hemorrhage Medications: [...] Disp: 3 each, Rfl: 11 Continuous Glucose Military Logistics Specialist (Dexcom G7 Military Logistics Specialist) device, 1 Device yearly, Disp: 1 each, [...] Resource Strain: Low Risk (06/22/2024) Received from [facility] Overall Financial Resource Strain (CARDIA) Difficulty of Paying Living Expenses: Not hard at all Food Insecurity: No Food Insecurity (12/03/2023) Received from [facility], [facility], [facility] Hunger Vital Sign Within the past 12 months, you worried that your food would run out before you got the money to buymore.: Never true Within the past 12 months, the food you bought just didn't last and you didn't have money to get more.: Never true Transportation Needs: No Transportation Needs (06/22/2024) Received from [facility] PRAPARE - Transportation Lack of Transportation (Medical): No Lack of Transportation (Non-Medical): No Physical Activity: Inactive (06/22/2024) Received from [facility] Exercise Vital Sign Days of Exercise per Week: 0 days Minutes of Exercise per Session: 0 min Stress: Stress Concern Present (12/03/2023) Received from [facility], [facility] [place] of Occupational Health - Occupational Stress Questionnaire Feeling of Stress : To some extent Social Connections: Moderately Isolated (12/03/2023) Received from [facility], [facility] Social Connection and Isolation Panel [NHANES] Frequency of Communication with Friends and Family: More than three times a week Frequency of Social Gatherings with Friends and Family: More than three times a week Attends Moravian Services: Never Active Member of Clubs or Organizations: No Attends Club or Organization Meetings: Never Marital Status: Intimate Partner Violence: Not At Risk (12/03/2023) Received from [facility], [facility] Humiliation, Afraid, Rape, and Kick questionnaire Fear of Current or Ex-Partner: No Emotionally Abused: No Physically Abused: No Sexually Abused: No Housing Stability: Low Risk (06/22/2024) Received from [facility] Housing Stability Vital Sign Unable to Pay [...] positive edema to left foot. NEURO: 5.07 [place] monofilament test diminished to digits and forefoot bilaterally 125Hz tuning fork diminished to 1st MPJ bilaterally ORTHO: Positive pain on palpation to toenails of the left 1,2,3,4,5 toes and right 1,2,3,4,5 toes Flexion deformities digits 2 through 5 bilateral Positive pain on palpation of right retrocalcaneal bursa and Achilles with negative palpable [place] DIAGNOSTIC US REPORT: Verbal order for ultrasound [...] polyneuropathy, unspecified whether skilled nursing insulin use ([facility]) 3. Pain due to onychomycosis of toenails of both feet 4. Onychomycosis 5. PVD (peripheral vascular disease) ([facility]) 6. Achilles tendinitis, right leg 7. [...] consented. Alexis Gilmore DPM documented in this [facility]12-12-2024 Evaluation note* Type Assessment Date assessment [...] ation), bilateral: H26.493 [facility] Work Phone: 1(255) 472-831012-06-2024 History of Present illness Narrative* Teena Delcid DO - 10/15/2024 10:15 AM EST Images from the original note were not included. Assessment/Plan Diagnoses and all orders for this visit: Pseudophakia - s/p CE OS (1mth): Patient should be close to off all post-op meds. Pt. received final refraction for this eye today. documented in this [facility]11-21-2024 History of Present illness Narrative* FAITH [...] (ten) days 3 each 11 Continuous Glucose Military Logistics Specialist (Dexcom G7 Military Logistics Specialist) device 1 Device yearly 1 each 0 [...] Other Past Medical History: Diagnosis Date A-fib ([facility] 2022 with RVR Anxiety Aortic stenosis 06/2022 Carotid artery disease ([facility] Cataract CHF (congestive heart failure) ([facility] 06/2022 Colon polyp 2016 Diverticulitis DM (diabetes mellitus) ([facility] HLD (hyperlipidemia) ([facility] HTN (hypertension) ([facility] SD (myocardial infarction) ([facility] NSTEMI, initial episode of care ([facility] 2022 Retinal hemorrhage Past [...] vaccination - Influenza, high-dose seasonal, quadrivalent, PF (CHE507) (Fluzone High Dose [place] 0.7mL dose) Afebrile today, and all recent symptoms resolved or improving. Provided pt with Flu shot today. Shetolerated this well. Hypotension, unspecified hypotension type Encouraged pt to increase her water intake. Reach out to Cardiology if bottom number of BP runs low Follow up in about 3 months (around 12/31/2024) for Diabetes. documented in this encounterPershing Memorial [id number] History of Present illness Narrative* Alexis Gilmore, [...] states she had improvement from seeing this [facility] doctors with intervention and has follow up in the near future Patient was seen in [place] for vascular intervention in the past with hx of DM2 and PVD Patient states continued pain to the region and was to follow up with vascular surgeon at the [facility] and states that she did [...] History: Past Medical History: Diagnosis Date A-fib ([facility] 2022 with RVR Anxiety Aortic stenosis 06/2022 Carotid artery disease ([facility] Cataract CHF (congestive heart failure) ([facility] 06/2022 Colon polyp 2016 Diverticulitis DM (diabetes mellitus) ([facility] HLD (hyperlipidemia) ([facility] HTN (hypertension) ([facility] SD (myocardial infarction) ([facility] NSTEMI, initial episode of care ([facility] 2022 Retinal hemorrhage Medications: [...] Disp: 3 each, Rfl: 11 Continuous Glucose Military Logistics Specialist (Dexcom G7 Military Logistics Specialist) device, 1 Device yearly, Disp: 1 each, [...] Resource Strain: Low Risk (06/22/2024) Received from [facility] Overall Financial Resource Strain (CARDIA) Difficulty of Paying Living Expenses: Not hard at all Food Insecurity: No Food Insecurity (12/03/2023) Received from [facility], [facility], [facility] Hunger Vital Sign Within the past 12 months, you worried that your food would run out before you got the money to buymore.: Never true Within the past 12 months, the food you bought just didn't last and you didn't have money to get more.: Never true Transportation Needs: No Transportation Needs (06/22/2024) Received from [facility] PRAPARE - Transportation Lack of Transportation (Medical): No Lack of Transportation (Non-Medical): No Physical Activity: Inactive (06/22/2024) Received from [facility] Exercise Vital Sign Days of Exercise per Week: 0 days Minutes of Exercise per Session: 0 min Stress: Stress Concern Present (12/03/2023) Received from [facility], [facility] [place] of Occupational Health - Occupational Stress Questionnaire Feeling of Stress : To some extent Social Connections: Moderately Isolated (12/03/2023) Received from [facility], [facility] Social Connection and Isolation Panel [NHANES] Frequency of Communication with Friends and Family: More than three times a week Frequency of Social Gatherings with Friends and Family: More than three times a week Attends Moravian Services: Never Active Member of Clubs or Organizations: No Attends Club or Organization Meetings: Never Marital Status: Intimate Partner Violence: Not At Risk (12/03/2023) Received from [facility], [facility] Humiliation, Afraid, Rape, and Kick questionnaire Fear of Current or Ex-Partner: No Emotionally Abused: No Physically Abused: No Sexually Abused: No Housing Stability: Low Risk (06/22/2024) Received from [facility] Housing Stability Vital Sign Unable to Pay [...] positive edema to left foot. NEURO: 5.07 [place] monofilament test diminished to digits and forefoot bilaterally 125Hz tuning fork diminished to 1st MPJ bilaterally ORTHO: Positive pain on palpation nails 1 through 10 Flexion deformities digits 2 through 5 bilateral ASSESSMENT 1. Dry gangrene ([facility]) 2. PVD (peripheral vascular disease) ([facility]) 3. Diabetes mellitus due to underlying condition with diabetic polyneuropathy, unspecified whether skilled nursing insulin use ([facility]) 4. Pain due to onychomycosis of [...] gear. Alexis Gilmore DPM documented in this encounterPershing Memorial [id number] History of Present illness Narrative* Johnna Cedeño, [...] (ten) days 3 each 11 Continuous Glucose Military Logistics Specialist (Dexcom G7 Military Logistics Specialist) device 1 Device yearly 1 each 0 [...] Other Past Medical History: Diagnosis Date A-fib ([facility] 2022 with RVR Anxiety Aortic stenosis 06/2022 Carotid artery disease ([facility] Cataract CHF (congestive heart failure) ([facility] 06/2022 Colon polyp 2016 Diverticulitis DM [facility]diabetes mellitus[facility] [facility] [place] HLD (hyperlipidemia[place] [place] HTN (hypertension) ([facility] [place] SD (myocardial infarction) ([facility] [place] NSTEMI, initial episode of care ([facility] [place] 2022 Retinal hemorrhage Past [...] orders for this visit: Acute asthmatic bronchitis ([facility]) - levoFLOXacin (Levaquin) 500 MG tablet; [...] hyperglycemia, with long-term current use of insulin ([facility]) - POCT Glycated hemoglobin, total - [...] No follow-ups on file. documented in this [facility]10-29-2024 History of Present illness Narrative* Teena [...] vision, questions or concerns. documented in this [facility]10-22-2024 History of Present illness Narrative* Teena [...] different lens options were explained including the pik-ez-ejzzcs fees for any upgrades. Intraocular lens (IOL) [...] Extremities: no pitting edema. documented in this encounterPershing Memorial [id number] NotePatient here for 3 mo follow up aortic valve stenosis s/p TAVR, CAD, PAF, and PAD. She underwent vascular surgery at in Jun 2024. No labs since then. Denies chest pain, SOB, palpitations, and bleeding on Eliquis. Review of Systems Cardiovascular: Positive for leg swelling (LLE, resolves by morning). Neurological: Positive for numbness. 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 [facility] Note Referring Provider: Noe Conklin DO PCP: No primary care provider on file. Warehouse Pricing And Inventory Clerk: Alexis Gilmore DPM CC: 1 month post [...] History: 12/04/23: LLE angiogram, jet stream atherectomy, CANAL STRUCTURE OPERATOR and stenting of SFA/pop (Dr. Padilla) for [...] 07/20/2024 Patient Name: DIANN PATEL Reading Physician: [id number] Nury Blackwell MD, RPVI Study Date: 07/20/2024 Ordering Physician: [id number] TERRI SOSA MRN/PID: [id number] Technologist: Chanda Martinez RVT Technologist 2: Date of /Age: 8 1955 / 69 years Gender: F Admission Status: Outpatient Location Performed: [facility] Diagnosis/ICD: Peripheral vascular disease, unspecified-I73.9 CPT Codes: 98022 Peripheral artery BRIDGER Only CONCLUSIONS: Right Lower [...] Left Brachial Pressure 175 mmHg 184 mmHg [id number] Nury Blackwell MD, RPVI Assessment/Plan Diann Patel [...] if needed ESTELLA Strong documented in this encounterV[facility] Administration Work Phone: 1(636) 628-685109-10-2024 Instructions* Patient Instructions* ESTELLA Strong - 07/20/2024 3:30 PM EDT Thank you for coming to see us in the [facility] today. We have reviewed your vascular testing [...] concerns please give us a call at [phone] option 1 documented in this encounterVeterans Health Administration Work Phone: 1(606) 391-289609-03-2024 History of Present illness Narrative* Teena Delcid, [...] (ten) days 3 each 11 Continuous Glucose Military Logistics Specialist (Dexcom G7 Military Logistics Specialist) device 1 Device yearly 1 each 0 [...] (Other) Past Medical History: Diagnosis Date A-fib ([facility] [place] 2022 with RVR Anxiety Aortic stenosis 06/2022 Carotid artery disease ([facility] [place] Cataract CHF (congestive heart failure) ([facility] [place] 06/2022 Colon polyp 2016 Diverticulitis DM (diabetes mellitus) ([facility] [place] HLD (hyperlipidemia) ([facility] [place] HTN (hypertension) ([facility] [place] SD (myocardial infarction) [place] [place] NSTEMI, initial episode of care ([facility] [place] 2022 Retinal hemorrhage Allergies [...] @ 1:09 PM Additional Tests Keratometry K1 [place] K2 [place] Right 43.75 180 44 90 Left 44.25 [...] retina superior Refraction Manifest Refraction Sphere Cylinder [place] Right +1.75 -0.75 098 Left Assessment/Plan Cataract mature, total senile - IOL Biometry - OU - Both Eyes (CPT 72915) - Visually Significant Cataract, OU: I discussed [...] different lens options were explained including the gun-cl-izjvgr fees for any upgrades. Intraocular lens (IOL) [...] improvement to the vision. documented in this encounterPershing Memorial [id number] History of Present illness Narrative* Alexis Gilmore, [...] states she had improvement from seeing this [facility] doctors with intervention and has follow up in the near future Patient was seen in [place] for vascular intervention in the past with hx of DM2 and PVD Patient states continued pain to the region and was to follow up with vascular surgeon at the [facility] and states that she did [...] History: Past Medical History: Diagnosis Date A-fib ([facility]) 2022 with RVR Anxiety Aortic stenosis 06/2022 Carotid artery disease ([facility]) Cataract CHF (congestive heart failure) ([facility] [place] 06/2022 Colon polyp 2016 Diverticulitis DM (diabetes mellitus) ([facility] [place] HLD (hyperlipidemia) ([facility] [place] HTN (hypertension) ([facility] [place] SD (myocardial infarction) ([facility] [place] NSTEMI, initial episode of care ([facility] [place] 2022 Retinal hemorrhage Medications: [...] Disp: 3 each, Rfl: 11 Continuous Glucose Military Logistics Specialist (Dexcom G7 Military Logistics Specialist) device, 1 Device yearly, Disp: 1 each, [...] Resource Strain: Low Risk (06/22/2024) [facility] Overall Financial Resource Strain (CARDIA) Difficulty of Paying Living Expenses: Not hard at all Food Insecurity: No Food Insecurity (12/03/2023) Received from [facility], [facility], [facility] Hunger Vital Sign Within the past 12 months, you worried that your food would run out before you got the money to buymore.: Never true Within the past 12 months, the food you bought just didn't last and you didn't have money to get more.: Never true Transportation Needs: No Transportation Needs (06/22/2024) [facility] PRAPARE - Transportation Lack of Transportation (Medical): No Lack of Transportation (Non-Medical): No Physical Activity: Inactive (06/22/2024) [facility] Exercise Vital Sign Days of Exercise per Week: 0 days Minutes of Exercise per Session: 0 min Stress: Stress Concern Present (12/03/2023) Received from [facility], [facility] [place] of Occupational Health - Occupational Stress Questionnaire Feeling of Stress : To some extent Social Connections: Moderately Isolated (12/03/2023) Received from [facility], [facility] Social Connection and Isolation Panel [NHANES] Frequency of Communication with Friends and Family: More than three times a week Frequency of Social Gatherings with Friends and Family: More than three times a week Attends Moravian Services: Never Active Member of Clubs or Organizations: No Attends Club or Organization Meetings: Never Marital Status: Intimate Partner Violence: Not At Risk (12/03/2023) Received from [facility], [facility] Humiliation, Afraid, Rape, and Kick questionnaire Fear of Current or Ex-Partner: No Emotionally Abused: No Physically Abused: No Sexually Abused: No Housing Stability: Low Risk (06/22/2024) [facility] Housing Stability Vital Sign Unable to Pay [...] positive edema to left foot. NEURO: 5.07 [place] Tru[place] monofilament test diminished to digits and forefoot bilaterally 125Hz tuning fork diminished to 1st MPJ bilaterally ORTHO: Positive pain on palpation nails 1 through 10 Flexion deformities digits 2 through 5 bilateral ASSESSMENT 1. PVD (peripheral vascular disease) (CMS/HCC) 2. Diabetes mellitus due to underlying condition with diabetic polyneuropathy, unspecified whether terminal operator insulin use ([facility]) 3. Dry gangrene (CMS/HCC) 4. Onychomycosis 5. 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 Bilateral. Condition: established, stable OD, active/worsening OS [facility] Work Phone: 1(326) [phone] History of Present illness Narrative* Encounter Date [...] bandage. Patient is wearing her reading glasses time checker since the surgery. Patient denies any pain [...] described as blurring. Patient denies eye pain. [facility] Work Phone: [phone] Instructions* Date Instruction Additional Infor dimple Impression/Plan [...] of right eye [facility] Work Phone: [phone]) 161-632708-12-2024 Plan of care note* Care Plan - [...] Goal: Free from fall injury Outcome: Progressing [facility] Work Phone: [phone] Miscellaneous Notes* Care Plan - Massiel Sesay [...] Attending: * Nely Curry - Primary Resident/Fellow/Other Press Assistant And Feeder: Surgeons and Role: * Braeden Colin MD - Fellow Indications: Pre-op Diagnosis * PAD (peripheral artery disease) ([facility]) [I73.9] Post-procedure diagnosis: Post-op Diagnosis * PAD (peripheral artery disease) ([facility]) [I73.9] Procedure(s): Lower Extremity Angiogram and Intervention 60278 - [facility] ANGIOGRAPHY EXTREMITY UNILATERAL RS&I Procedure Findings: -LLE severe claudication and CLI Equality class V: Patient status post successful revascularization using directional tixyykkping-SMU-GLR to entire left SFA and popliteal with good results. Access of the Procedure: 6F right ENROLLMENT MANAGEMENT COORDINATOR, closed with Vascade and manual pressure. [...] alternatives discussed with patient. documented in this [facility] Work Phone: [phone]) 424-772008-12-2024 History of Present illness Narrative* Blu Mobley, PharmD - 06/21/2024 2:32 PM EDT Pharmacy Medication History Review Diann Patel is a 68 y.o. female admitted for PAD (peripheral artery disease) ([facility] Pharmacy reviewed the patient's anuol-dy-jspqraxdu medications and allergies for accuracy. Medications ADDED: acetaminophen Medications CHANGED: Albuterol as needed for shortness of breath/wheezing Basaglar KwikPen 100units/mL- 50 units at bedtime Ondansetron ODT as needed for nausea/vomiting Medications REMOVED: Spironolactone The list below reflects the updated CANAL STRUCTURE OPERATOR list. Comments regarding how patient may be [...] Below are additional concerns with the patient's CANAL STRUCTURE OPERATOR list. N/A Blu Mobley PharmD Transitions of Care Pharmacist [facility] Please reach out via Secure Chat for questions, or if no response call pinion-pins or OnitRec documented in this [facility] Work Phone: [phone]) 249-822008-12-2024 Note* Post-Procedure Note - Nely Curry MD - 06/21/2024 2:05 PM EDT Physician Transition of Care Summary Invasive Cardiovascular Lab Procedure Date: 06/21/2024 Attending: * Nely Curry - Primary Resident/Fellow/Other Press Assistant And Feeder: Surgeons and Role: * Braeden Colin MD - Fellow Indications: Pre-op Diagnosis * PAD (peripheral artery disease) (CMS-HCC) [I73.9] Post-procedure diagnosis: Post-op Diagnosis * PAD (peripheral artery disease) ([facility]) [I73.9] Procedure(s): Lower Extremity Angiogram and Intervention 71345 - [facility] ANGIOGRAPHY EXTREMITY UNILATERAL RS&I Procedure Findings: -LLE severe claudication and CLI Equality class V: Patient status post successful revascularization using directional krkaziwuphu-PFD-ZXY to entire left SFA and popliteal with good results. Access of the Procedure: 6F right ENROLLMENT MANAGEMENT COORDINATOR, closed with Vascade and manual pressure. [...] by: Nely Curry MD, 06/21/2024 5:00 PM [facility] Work Phone: [phone] Note* Pre-Sedation Documentation - Braeden Colin MD - 06/21/2024 1:58 PM EDT Sedation Plan ASA 3 Mallampati class: III. Risks, benefits, and alternatives discussed with patient. [facility] Work Phone: [phone] History of Present illness Narrative* Margareth Escamilla DO - 06/15/2024 3:00 PM EDT Images from the original note were not included. [facility] Note Referring Provider: Noe Conklin DO PCP: No primary care provider on file. Warehouse Pricing And Inventory Clerk: Alexis Gilmore DPM CC: PAD Subjective HPI: [...] History: 12/04/23: LLE angiogram, jet stream atherectomy, CANAL STRUCTURE OPERATOR and stenting of SFA/pop (Dr. Padilla) for [...] ondansetron ODT (Zofran-ODT) 4 mg disintegrating tablet ZouxiuTouch Ultra Test strip USE TO TEST BLOOD [...] 0.52/0.43 Left 0/0 No imaging available from [facility] for review Plan: LLE angiogram with intervention on 06/21/[address] Curry Images from [facility] requested Continue aspirin, Plavix, Eliquis (Last dose of Eliquis PM of 06/18) Continue atorvastatin Percocet x10 tablets sent to patients pharmacy for pain control until procedure on 06/21/24 Patient seen and discussed with attending, Dr. Francine Escamilla DO documented in this [facility] Work Phone: [phone]) [phone] Instructions* Patient Instructions* Margareth Leblanc MD - 06/15/2024 3:00 PM EDT Images from the original note were not included. It was a pleasure taking care of you today and appreciate your seeing us at our [facility]. Today's plan is as follows: Continue [...] blood flow to your left leg at [facility] ([id number] [facility]) with Dr. Escamilla The mine laborer staff will call you the day before the procedure for further instructions and time of the procedure. The phone number to reach them at is [phone] (M-F, 6:30 am -5 pm) You will [...] call the office with any questions at [phone], press option 1 If you need coordinating your appointments and testing you can do these at the front office director or by calling my office shortly after your visit. documented in this [facility] Work Phone: [phone]) [phone] History of Present illness Narrative* Alexis Berry [...] left leg and patient was transferred to [facility] where she had it angioplasty procedure with increased blood flow noted by patient. She has a type 2 diabeticand presents today for follow up in office. Allergies: Allergies Allergen Reactions Penicillins Hives childhood-swelling Past Medical History: Past Medical History: Diagnosis Date A-fib ([facility] [place] 2022 with RVR Anxiety Aortic stenosis 06/2022 Carotid artery disease ([facility]) CHF (congestive heart failure) ([facility] [place] 06/2022 Colon polyp 2016 Diverticulitis DM (diabetes mellitus) ([facility]) HLD (hyperlipidemia) ([facility]) HTN (hypertension) ([facility]) SD (myocardial infarction) ([facility]) NSTEMI, initial episode of care ([facility] [place] 2022 Medications: Current Outpatient [...] positive edema to left foot NEURO: 5.07 [place] Tru[place] monofilament test diminished to digits and forefoot bilaterally 125Hz tuning fork diminished to 1st MPJ bilaterally ORTHO: Minimal pain on palpation to left foot ulcer BRIDGER PVR non readable findings to the left with non pulsatile flow and right of 0.53 DP ASSESSMENT 1. Diabetes mellitus due to underlying condition with diabetic polyneuropathy, unspecified whether skilled nursing insulin use ([facility]) 2. PVD (peripheral vascular disease) ([facility]) 3. Dry gangrene ([facility]) 4. Foot ulcer, left, with fat layer exposed ([facility]) PLAN Sharp debridement with 15 blade of subcutaneous ulceration to left foot with active bleeding noted and removal and excision of fibrotic and necrotic tissue to wound and DSD applied with neosporin. Ptto continue with Betadine daily Reviewed BRIDGER PVRs and patient is to follow up with [facility] for right foot in near future and continue with wound care until follow up in 1 week Alexis Gilmore DPM documented in this encounterPershing Memorial [id number] Evaluation note* Encounter Date Diagnosis Assessment Notes [...] office sooner with any issues or concerns. [facility] Other 03-24-2023 NotePROCEDURE: XR WRIST LT MIN 3 V HISTORY: Pain after falling COMPARISON: None. FINDINGS: BONES:No fracture, acute abnormality, or significant arthropathy. SOFT TISSUES:Multiple skin jose within soft tissues lateral to the distal forearm. EFFUSION:None visible. OTHER: Negative. IMPRESSION: 1. No acute bone abnormality. 2. Multifocal mild degenerative joint disease. Electronically authenticated by: GERMAIN COY Date: 2023-01-31 13:10[facility] [id number] Procedure [facility] 01-09-2023 Evaluation note* Encounter Date Diagnosis Assessment [...] was obtained all her questions were addressed. [facility] Other 08-25-2022 NoteMR#: [id number] I [facility] Pt. Name: Diann Patel Admitted: 2022 Discharged: [...] Amaya MD Date Trans: 07/03/2022 11:43 P/mmo [id number] cc: Champ Bell M.D. [address] [place] [id number] Evaluation note* Encounter Date Diagnosis Assessment [...] plan all of her questions were addressed. Alle[facility] Other Consult note* Clinical Note Date No Information [facility] Work Phone: Discharge summary* Clinical Note Date No Information [facility] Work Phone: Evaluation noteNo assessment information available [facility] Work Phone: Evaluation note* Diagnosis Diabetes mellitus due to underlying condition with diabetic polyneuropathy, unspecified whether terminal operator insulin use ([facility])- Primary PVD (peripheral vascular disease) ([facility]) Unspecified peripheral vascular disease Dry gangrene ([facility]) Foot ulcer, left, with fat layer exposed ([facility]) documented in this encounter [facility] HealthcareEvaluation note* Diagnosis Onset Date Resolution Status Peripheral artery disease acute [facility] Work Phone: Evaluation note* Diagnosis Pseudophakia- Primary Lens replaced by other means documented in this encounter [facility] HealthcareEvaluation note* Diagnosis Pseudophakia- Primary Lens replaced by other means Cataract mature, total senile Total or mature senile cataract documented in this encounter [facility] HealthcareEvaluation note* Diagnosis Pseudophakia- Primary Lens replaced by other means documented in this encounter [facility] Healthcare[facility]* Diagnosis Pseudophakia- Primary Lens replaced by other means Diabetes mellitus due to underlying condition with diabetic polyneuropathy, unspecified whether skilled nursing insulin use ([facility])- Primary Pain due to onychomycosis of toenails of both feet Dry gangrene ([facility]) PVD (peripheral vascular disease) ([facility]) Unspecified peripheral vascular disease documented in this encounter [facility] Healthcare[facility] note* Diagnosis Acute asthmatic bronchitis ([facility])- Primary Unspecified asthma, with exacerbation Type 2 diabetes mellitus with hyperglycemia, with long-term current use of insulin ([facility]) Polyneuropathy due to type 2 diabetes mellitus ([facility] Acute cough Dry gangrene ([facility])- Primary PVD (peripheral vascular disease) ([facility]) Unspecified peripheral vascular disease Diabetes mellitus due to underlying condition with diabetic polyneuropathy, unspecified whether terminal operator insulin use ([facility]) Pain due to onychomycosis of toenails of both feet documented in this encounter [facility] HealthcareEvaluation note* Diagnosis Dry gangrene ([facility])- Primary PVD (peripheral vascular disease) ([facility] [facility]) Unspecified peripheral vascular disease Diabetes mellitus due to underlying condition with diabetic polyneuropathy, unspecified whether terminal operator insulin use ([facility]) Pain due to onychomycosis of toenails of both feet documented in this encounter [facility] HealthcareEvaluation note* Diagnosis Acute asthmatic bronchitis ([facility])- Primary Unspecified asthma, with exacerbation Need for vaccination Need for prophylactic vaccination and inoculation against unspecified single disease Hypotension, unspecified hypotension type documented in this encounter [facility]* Diagnosis Pseudophakia- Primary Lens replaced by other means documented in this encounter [facility] HealthcareEvaluation note* Diagnosis PAD (peripheral artery disease) ([facility] Primary Unspecified peripheral vascular disease PAD (peripheral artery disease) ([facility] Unspecified peripheral vascular disease S/P peripheral artery angioplasty Other postprocedural status Atherosclerosis of [place] arteries of extremities with intermittent claudication, left leg ([facility] Atherosclerosis of [place]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 with ulceration of other part of foot (Multi) Acute pain PAD (peripheral artery disease) ([facility]) Unspecified peripheral vascular disease documented in this encounter [facility] Work Phone: Evaluation note* Diagnosis PAD (peripheral artery disease) ([facility] Primary Unspecified peripheral vascular disease Anemia, unspecified type documented in this encounter [facility] Work Phone: Evaluation note* Diagnosis PAD (peripheral artery disease) ([facility] Unspecified peripheral vascular disease S/P peripheral artery angioplasty Other postprocedural status documented in this encounter [facility] Work Phone: Evaluation note* Diagnosis S/P peripheral artery angioplasty- Primary Other postprocedural status PAD (peripheral artery disease) ([facility] Unspecified peripheral vascular disease documented in this encounter [facility] Work Phone: Evaluation note* Diagnosis Dry gangrene ([facility] [place] Primary PVD (peripheral vascular disease) ([facility] [place] Unspecified peripheral vascular disease Diabetes mellitus due to underlying condition with diabetic polyneuropathy, unspecified whether skilled nursing insulin use ([facility] [place] Onychomycosis Dermatophytosis of nail Toe pain, bilateral documented in this encounter [facility] HealthcareEvaluation note* Diagnosis Cataract mature, total senile- Primary Total or mature senile cataract documented in this encounter [facility] HealthcareEvaluation note* Diagnosis Heel spur, right- Primary Diabetes mellitus due to underlying condition with diabetic polyneuropathy, unspecified whether skilled nursing insulin use ([facility] [place] Pain due to onychomycosis of toenails of both feet Onychomycosis Dermatophytosis of nail PVD (peripheral vascular disease) ([facility] [place] Unspecified peripheral vascular disease Achilles tendinitis, right leg Contracture of right ankle documented in this encounter [facility] HealthcareEvaluation note* Diagnosis Heel spur, right- Primary Achilles tendinitis, right leg Contracture of right ankle documented in this encounter [facility] HealthcareEvaluation note* Diagnosis Paroxysmal atrial fibrillation ([facility])- Primary Atrial fibrillation Benign essential hypertension ([facility]) Essential hypertension, benign Type 2 diabetes mellitus with hyperglycemia, with long-term current use of insulin ([facility]) 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 ([facility]) S/P CABG x 4 Postsurgical aortocoronary bypass status Encounter for screening mammogram for malignant neoplasm of breast Type 2 diabetes mellitus with foot ulcer (CODE) ([facility]) Non-pressure chronic ulcer of other part of left foot with fat layer exposed ([facility]) documented in this encounter [facility] HealthcareEvaluation note* Diagnosis Type 2 diabetes mellitus with hyperglycemia, with long-term current use of insulin ([facility]) documented in this encounter [facility] HealthcareEvaluation note* Diagnosis 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 associated with type 2 diabetes mellitus (CMS/HCC)- Primary 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 ([facility]) Epiretinal membrane (ERM) of both eyes Dry eyes Unspecified tear film insufficiency Achilles tendinitis, right leg- Primary Contracture of right ankle Diabetes mellitus due to underlying condition with diabetic polyneuropathy, unspecified whether skilled nursing insulin use ([facility]) Pain due to onychomycosis of toenails of both feet PVD (peripheral vascular disease) ([facility]) Unspecified peripheral vascular disease documented in this encounter [facility] HealthcareEvaluation note* Diagnosis Onset Date Resolution Status Admit Date Weakness acuteApril 2024 6:24pm [facility] Work Phone: Evaluation note* Diagnosis Encounter for screening mammogram for breast cancer- Primary Type 2 diabetes mellitus with hyperglycemia, with long-term current use of insulin ([facility]) Rheumatoid arthritis, unspecified Vitreous hemorrhage, left eye (CMS/[facility]) Vitreous hemorrhage Vitreous hemorrhage, right eye ([facility]) Vitreous hemorrhage Atherosclerosis of [place] arteries of right leg with ulceration of thigh ([facility]) documented in this encounter [facility] HealthcareEvaluation note* Diagnosis Contracture of right ankle- Primary Achilles tendinitis, right leg Diabetes mellitus due to underlying condition with diabetic polyneuropathy, unspecified whether terminal operator insulin use ([facility]) Pain due to onychomycosis of toenails of both feet documented in this encounter [facility] HealthcareEvaluation note* Diagnosis Medicare annual wellness visit, subsequent- Primary 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 ([facility]) Benign essential hypertension ([facility]) Essential hypertension, benign Diverticulosis of colon Diverticulosis of colon (without mention of hemorrhage) Generalized anxiety disorder ([facility]) Generalized anxiety disorder Irritable bowel syndrome with both constipation and diarrhea Mixed hyperlipidemia ([facility]) Mixed hyperlipidemia Paroxysmal atrial fibrillation ([facility]) Atrial fibrillation Peripheral vascular disease ([facility]) Unspecified peripheral vascular disease Polyneuropathy due to type 2 diabetes mellitus ([facility]) Poorly controlled diabetes mellitus ([facility]) Type II or unspecified type diabetes mellitus without mention of complication, not stated as uncontrolled 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 associated with type 2 diabetes mellitus ([facility]) Type 2 diabetes mellitus with hyperglycemia, with long-term current use of insulin ([facility]) Osteopenia, unspecified location Asthma without status asthmaticus without complication, unspecified asthma severity, unspecified whether persistent ([facility]) Arteriosclerosis of arterial coronary artery bypass graft ([facility]) Estrogen deficiency Other ovarian failure Chronic migraine with aura without status migrainosus, not intractable ([facility]) Overweight 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 ([facility]) 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, with long-term current use of insulin, unspecified retinopathy severity ([facility]) Bilateral carotid artery stenosis Occlusion and stenosis of carotid artery without mention of cerebral infarction New onset of congestive heart failure ([facility]) NSTEMI (non-ST elevated myocardial infarction) ([facility]) Acute myocardial infarction, subendocardial infarction, episode of care unspecified Screening for thyroid disorder Routine general medical examination at health care facility Routine general medical examination at a health care facility Screening for colon cancer Special screening for malignant neoplasms, colon documented in this encounter [facility] HealthcareEvaluation note* Diagnosis Iron deficiency anemia, unspecified iron deficiency anemia type- Primary [facility] Diagnosis Iron deficiency anemia, unspecified [...] polyneuropathy, unspecified whether skilled nursing insulin use ([facility]) Pain due to onychomycosis of toenails of both feet documented in this encounter [facility]* Diagnosis History of colon polyps- Primary Upper abdominal pain Iron deficiency anemia, unspecified iron deficiency anemia type Chronic anticoagulation Encounter for long-term (current) use of anticoagulants Other chronic gastritis without hemorrhage documented in this encounter [facility]* Diagnosis VH (vitreous hemorrhage), right ([facility])- Primary Dry eyes Unspecified tear film insufficiency documented in this encounter [facility]* Diagnosis Contracture of right ankle- Primary Achilles tendinitis, right leg Diabetes mellitus due to underlying condition with diabetic polyneuropathy, unspecified whether terminal operator insulin use ([facility]) documented in this encounter [facility]* Diagnosis Preoperative clearance- Primary Unspecified pre-operative examination Type 2 diabetes mellitus with hyperglycemia, with long-term current use of insulin (HCC) 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, with long-term current use of insulin, unspecified retinopathy severity (HCC) Asthma without status asthmaticus without complication, unspecified asthma severity, unspecified whether persistent ([facility]) Major depressive disorder, single episode, in full remission Major depressive disorder, single episode in full remission Contracture of right ankle- Primary Achilles tendinitis, right leg documented in this encounter [facility]* Diagnosis Contracture of right ankle- Primary Achilles tendinitis, right leg Type 2 diabetes mellitus with hyperglycemia, with long-term current use of insulin ([facility]) documented in this encounter [facility]* Diagnosis Abnormal breast exam- Primary Other sign and symptom in breast Encounter for screening mammogram for malignant neoplasm of breast Type 2 diabetes mellitus with diabetic chronic kidney disease (HCC) Chronic kidney disease, stage 3b ([facility]) Acute non-recurrent pansinusitis Achilles tendinitis, right leg- Primary Diabetes mellitus due to underlying condition with diabetic polyneuropathy, unspecified whether skilled nursing insulin use ([facility]) Pain due to onychomycosis of toenails of both feet documented in this encounter [facility] HealthcareEvaluation note* Diagnosis Achilles tendinitis, right leg- Primary Contracture of right ankle Type 2 diabetes mellitus with hyperglycemia, with long-term current use of insulin (HCC) Pain due to onychomycosis of toenails of both feet documented in this encounter [facility] HealthcareEvaluation note* Diagnosis Acute non-recurrent pansinusitis- Primary documented in this encounter [facility] HealthcareHistory and physical note* Clinical Note Date No Information [facility] Work Phone: Hisxdyz general Narrative - Reported* Type Description Date Medical History carotid stenosis Medical HistorydiverticulitisMedical HistoryMIMedical HistoryDMMedical History hyperlipidemiaMedical HistoryHTNSurgical HistorycholecystectomySurgical History tonsillectomySurgical [id number] Historyhernia repairSurgical History appendectomySurgical Historyquad [id number] Historysee surgical Alleantia Other Hishlva general Narrative - Reported* Type Description Date Medical History carotid stenosis Medical HistorydiverticulitisMedical HistoryMIMedical HistoryDMMedical History hyperlipidemiaMedical HistoryHTNSurgical HistorycholecystectomySurgical History tonsillectomySurgical [id number] Historyhernia repairSurgical History appendectomySurgical Historyquad [id number] HistoryCardiac [id number] Hospitalization Historysee surgical Alleantia Other History of Present illness Narrative* Teena [...] vision, questions or concerns. [facility] Narrative * Teena Delcid DO - 09/17/2024 9:30 AM EST Images from the original note were not included. Assessment/Plan Diagnoses and all orders for this visit: Pseudophakia - s/p CE OS (POD #7): Patient provided with post-op form. Instructed to continue drops. Discontinueeye shield. Instructed to call immediately with increased pain, redness, decreased vision, questions or concerns. [facility] * Dale [...] her primary care physician. [facility] Additional Instructions DISDISCHARGE INSTRUCTIONS FOR [...] 24 hours. CALL [name at #] OR [facility] AT [phone]: -If excessive bleeding should occur from the [...] Avandament for the next two days.] [ ][facility] Work Phone: Hospital Discharge instructions Additional Instructions Resume Eliquis in 3 days.[facility] Work Phone: Hospital Discharge instructions Additional [...] operative site FOLLOW UP Phone numbers: Office [phone] [facility] Work Phone: Progress note* Clinical Note Date No Information [facility] Work Phone: reason for referral (narrative)* Reason For Referral No Information [facility] Work Phone: Rekpmi for referral (narrative)No reason for referral information availableLutheran Hospital Work Phone: Reason for visit Narrative* Auth/CertSpecialty Diagnoses / ProceduresReferred By ContactReferred To Contact Diagnoses PAD (peripheral artery disease) ([facility]) PAD (peripheral artery disease) ([facility]) [I73.9] Procedures CHG ANGIOGRAPHY EXTREMITY UNILATERAL RS&I Lower Extremity Angiogram and Intervention Nely Curry MD [address] [facility] [place] [address] [facility] [id number] [address]vepinv [address] [place] [address] Referral IDStatusReasonStart DateExpiration DateVisits RequestedVisits [id number] [facility] Work Phone: Summary Purpose Family History Relationship [...] To ContactCardiology Diagnoses PAD (peripheral artery disease) ([facility] S/P peripheral artery angioplasty Procedures Vascular US Ankle Brachial Index (BRIDGER) Without Exercise Terri Sosa APRN-GUN REPAIR CLERK [address] [place] [address] Referral IDStatusReasonStart DateExpiration DateVisits RequestedVisits [id number] Perform Procedure Additional Source Comments REASON FOR VISIT (unrecogniz ed section and content) ReasonCommentsConsultPVR F/HXzmahjPssewzcnZtst-czDsobvbQheinjaxWdnr-xjYsgxefnu ReasonCommentsPost-op Follow-upReasonCommentsDiabetesReasonCommentsDM Foot Care Dm nail careReasonCommentsNew Patient VisitSpecialtyDiagnoses / Procedures Referred By ContactReferred To ContactCardiology Diagnoses PAD (peripheral artery disease) ([facility] S/P peripheral artery angioplasty Procedures Vascular US Ankle Brachial Index (BRIDGER) Without Exercise Terri Sosa APRN-GUN REPAIR CLERK [address] [place] [id number] Referral IDStatusReasonStart DateExpiration DateVisits RequestedVisits [id number] Perform Procedure [id number]-wqUszulvHpzabqvuHG Foot CareDM Nails ReasonCommentsCataractReasonCommentsFollow-upRT HEEL SPUR CHECKReasonCommentsMed RefillReasonCommentsFollow-upReasonCommentsConsultColonoscopy- Hx of colon polyps- Last colonoscopy was 2020 Debi Merrill at [facility] and she wants to have pt get an upper and lower scope done but in [place]. Pt would rather have thisdone here.SpecialtyDiagnoses / ProceduresReferred By Contact Referred To ContactGeneral Surgery Diagnoses Screening for colon cancer Procedures IN OFFICE/OUTPATIENT [facility] MDM 60 MINUTES Johnna Cedeño NP [address] [facility] [address] [place] [address] Phone: tel: fax: Dale Fox MD [address] [facility] [address] [place] [address] Phone: tel: fax: Referral IDStatusReasonStart DateExpiration DateVisits RequestedVisits [id number] Specialty Services Required [id number] po EGD/ColonoscopyReasonCommentsEye Pain ReasonCommentsConsent Or InstructionspreopReasonCommentsPost-op5d s/p rt tenotomyReasonCommentsDM Foot Care INFORMATION SOURCE (unrecogn ized section and content) DATE CREATED AUTHOR 07/13/2022 [facility] DATE CREATED AUTHOR AUTHOR'S ORGANIZ ATION 02/04/[address] [facility] DATE CREATED AUTHOR AUTHOR'S ORGANIZ ATION 07/26/2024 [facility] DATE CREATED AUTHOR AUTHOR'S ORGANIZ ATION 07/26/2024 [facility] DATE CREATED AUTHOR AUTHOR'S ORGANIZ ATION 06/01/2025 [facility] DATE CREATED AUTHOR AUTHOR'S ORGANIZ ATION 07/23/2025 [facility] DATE CREATED AUTHOR AUTHOR'S ORGANIZ ATION 08/16/2025 [facility] DATE CREATED AUTHOR AUTHOR'S ORGANIZ ATION 09/12/2025 [facility] DATE CREATED AUTHOR AUTHOR'S ORGANIZ ATION 09/21/2025 [facility] EPIC Care Teams (unrecognized sec [...] MemberRelationship SpecialtyStart DateEnd Date Champ Bell MD [address] [place] [address] PCP - GeneralInternal Medicine03/18/23 Team Status: Inactive [...] MemberRelationshipSpecialtyStart DateEnd Date Champ Bell MD [address] [place] [address] PCP - GeneralInternal Medicine03/18/23 Champ Bell MD [address] [place] [address] PCP - [facility]01/09/24FridayMagalie LPN [address] [place] [address] Licensed Practical NurseFami Medicine02/27/24Team MemberRelationshipSpecialty Start DateEnd Date Champ Bell MD [address] [place] [address] [facility] - [facility]03/18/23 Champ Bell MD [address] [place] [address] PCP - [facility]01/09/24FridayMagalie LPN [address] [place] [address] Licensed Practical NurseFamily Medicine02/27/24Team MemberRelationshipSpecialty Start DateEnd Date Champ Bell MD [address] [place] [address] PCP - GeneralInternal Medicine03/18/23 Champ Bell MD [address] [place] [address] PCP - [facility]01/09/24Friday, ABDELRAHMAN MejiasN [address] [place] [address] Licensed Practical NurseFamily Medicine02/27/24Team MemberRelationshipSpecialty Start DateEnd Date Champ Bell MD [address] [place] [address] PCP - GeneralInternal Medicine03/18/23 Champ Bell MD [address] [place] [address] PCP - [facility]01/09/24Friday, ABDELRAHMAN MejiasN [address] [place] [address] Licensed Practical NurseLemuel [facility] Medicine02/27/24Te MemberRelationshipSpecialty Start DateEnd Date Champ Bell MD [address] [place] [address] PCP - GeneralInternal Medicine03/18/23 Champ Bell MD [address] [place] [address] PCP - [facility]01/09/24Friday, Magalie BUSINESS ADMINISTRATOR [address] [place] [address] Licensed Practical NurseFamily Medicine02/27/24Team MemberRelationshipSpecialty Start DateEnd Date Champ Bell MD [address] [place] [address] PCP - GeneralInternal Medicine03/18/23 Champ Bell MD [address] [place] [address] PCP - [facility]01/09/24Friday, Magalie, BUSINESS ADMINISTRATOR [address] [place] [address] Licensed Practical NurseLemuel Shattuck [facility] Medicine02/27/24Team MemberRelationshipSpecialty Start DateEnd Date Champ Bell MD [address] [place], [place] [address] [facility] Champ Bell MD [address] [place] [address] [facility] - Formerly [facility]01/09/24Friday, Magalie, BUSINESS ADMINISTRATOR [address] [place] [address] [facility]02/27/24Team MemberRelationshipSpecialty Start DateEnd Date Champ Bell MD [address] [place] [address] [facility] - [facility]03/18/23 Champ Bell MD [address] [place] [address] PCP - [facility]01/09/24Friday, Magalie, BUSINESS ADMINISTRATOR [address] [place] [address] [facility]02/27/24Team MemberRelationshipSpecialty Start DateEnd Date Champ Bell MD [address] [place] [address] PCP - GeneralInternal Medicine03/18/23 Champ Bell MD [address] [place] [address] PCP - [facility]01/09/24Friday, Magalie, BUSINESS ADMINISTRATOR [address] [place] [address] Licensed Practical NurseFamily Medicine02/27/24Team MemberRelationshipSpecialty Start DateEnd Date Champ Bell MD [address] [place] [address] PCP - GeneralInternal Medicine03/18/23 Champ Bell MD [address] [place] [address] PCP - [facility] Reach01/09/24Friday, JAMESON Mejias [address] [place] [address] Licensed Practical NurseFamily Medicine02/27/24Team MemberRelationshipSpecialty Start DateEnd Date Noe Conklin DO [address] [facility] [address] [place] [address] PCP - GeneralFamily MedicineTeam MemberRelationshipSpecialtyStart DateEnd Date Champ Bell MD [address] [place] [address] PCP - GeneralInternal Medicine03/18/23 Champ Bell MD [address] [place] [address] PCP - O [facility]01/09/24Friday, Magalie, BUSINESS ADMINISTRATOR [address] [place] [address] Licensed [facility] NurseFab[facility] Medicine02/27/24Team MemberRelationshipSpecialty Start DateEnd Date Champ Bell MD [address] [place] [address] [facility] - [facility]03/18/23 Champ Bell MD [address] [place] [address] [facility] - [facility] Reach01/09/24Friday, Magalie, BUSINESS ADMINISTRATOR [address] [place] [address] [facility]02/27/24Te MemberRelationshipSpecialty Start DateEnd Date Champ Bell MD [address] [place] [address] [facility] - [facility]03/18/23 Champ Bell MD [address] [place] [address] [facility] - [facility]ly [facility]01/09/24Friday, Magalie, BUSINESS ADMINISTRATOR [address] [place] [address] [facility] Medicine02/27/24Te MemberRelationshipSpecialty Start DateEnd Date Champ Bell MD [address] [place] [address] PCP - GeneralInternal Medicine03/18/23 Champ Bell MD [address] [place] [address] PCP - [facility]01/09/24FridayMagalie LPN [address] [place] [address] Licensed Practical NurseFamily Medicine02/27/24Team MemberRelationshipSpecialty Start DateEnd Date Champ Bell MD [address] [place] [address] PCP - GeneralInternal Medicine03/18/23 Champ Bell MD [address] [place] [address] PCP - [facility]01/09/24FridayMagalie LPN [address] [place] [address] Licensed Practical NurseFamily Medicine02/27/24Team MemberRelationshipSpecialty Start DateEnd Date Champ Bell MD [address] [place] [address] PCP - GeneralInternal Medicine03/18/23 Champ Bell MD [address] [place] [address] PCP - O [facility]01/09/24 Lauren Finn, RN Licensed Practical NurseFamily Medicine12/17/24Team MemberRelationshipSpecialty Start DateEnd Date Champ Bell MD [address] [place] [address] PCP - GeneralInternal Medicine03/18/23 Champ Bell MD [address] [place] [address] PCP - [facility]01/09/24 Lauren Finn, WARD Licensed [facility] Medicine12/17/24Te MemberRelationshipSpecialty Start DateEnd Date Champ Bell MD [address] [place] [address] [facility] - [facility]03/18/23 Champ Bell MD [address] [place] [address] [facility] - [facility]01/09/24 Lauren Finn, WARD Licensed P[facility]Lem[facility]12/17/24Te MemberRelationshipSpecialty Start DateEnd Date Champ Bell MD [address] [place] [address] [facility]/18/23 Champ Bell MD [address] [place] [address] [facility]01/09/24 Lauren Finn RN Licensed P[facility]Lem[facility] Medicine12/17/24Te MemberRelationshipSpecialty Start DateEnd Date Champ Bell MD [address] [place] [address] [facility]/18/23 Champ Bell MD [address] [place] [address] PCP - [facility]01/09/24 Lesa Browne, [facility] 02/01/25Team MemberRelationshipSpecialtyStart DateEnd Date Champ Bell MD [address] [place] [address] PCP - GeneralInternal Medicine03/18/23 Champ Bell MD [address] [place] [address] PCP - [facility]01/09/24 Lesa Browne, [facility] 02/01/25Team MemberRelationshipSpecialtyStart DateEnd Date Champ Bell MD [address] [place] [address] PCP - [facility]03/18/23 Champ Bell MD [address] [place] [address] PCP - [facility]01/09/24 Lesa Browne, [facility] 02/01/25Team MemberRelationshipSpecialtyStart DateEnd Date Champ Bell MD [address] [place] [address] [facility] - [facility]03/18/23 Champ Bell MD [address] [place] [address] PCP - [facility]01/09/24 Lesa Browne, [facility] 02/01/25Team MemberRelationshipSpecialtyStart DateEnd Date Champ Bell MD [address] [place] [address] PCP - GeneralInternal Medicine03/18/23 Champ Bell MD [address] [place] [address] PCP - [facility]01/09/24 Lesa Browne BUSINESS ADMINISTRATOR 02/01/25 Team Status: Inactive Member Role Status Dates Champ Bell II MD Primary Care Provid er, Attending Provider Active Start: March 10, 2025 End: March 10, 2025Team MemberRelationshipSpecialtyStart DateEnd Date Champ Bell MD [address] [place] [address] PCP - GeneralInternal Medicine03/18/23 Champ Bell MD [address] [facility] [address] [place] [address] PCP - [facility]01/09/24 Lesa Browne BUSINESS ADMINISTRATOR 02/01/25Team MemberRelationshipSpecialtyStart DateEnd Date Champ Bell MD [address] [facility] [address] [place] [address] [facility] - [facility]03/18/23 Champ Bell MD [address] [facility] [address] [place] [address] PCP - [facility]01/09/24 Lesa Browne [facility] 02/01/25Team MemberRelationshipSpecialtyStart DateEnd Date Charlene Mckinley MD [address] [place] [address] [place] [address] [facility]05/09/25Team MemberRelationshipSpecialtyStart DateEnd Date Champ Bell MD [address] [place] [address] PCP - GeneralInternal Medicine03/18/23 Champ Bell MD [address] [place] [address] PCP - O [facility]01/09/24 Lesa Browne LPN [address] [place] [address] 02/01/25Team MemberRelationshipSpecialtyStart DateEnd Date Champ Bell MD [address] [place] [address] [facility]/23 Champ Bell MD [address] [place] [address] PCP - [facility] Reach01/09/24 Lesa Browne LPN [address] [place] [address] 02/01/25 Team Status: Inactive Member Role Status Dates Champ Bell II MD Primary Care Provider Active Start: June 09, 2025 End: June 09Vannesa Hernández ProviderActiveStart: June 09, 2025 End: June 09, 2025Team MemberRelationshipSpecialtyStart DateEnd Date Champ Bell MD [address] [place] [address] [facility] - [facility]03/18/23 Champ Bell MD [address] [place] [address] PCP - [facility]01/09/24 Browne, Lesa, BUSINESS ADMINISTRATOR [address] [place] [address] 02/01/25Team MemberRelationshipSpecialtyStart DateEnd Date Champ Bell MD [address] [place] [address] PCP - GeneralInternal Medicine03/18/23 Champ Bell MD [address] [place] [address] PCP - [facility]01/09/24 Lesa Browne LPN [address] [place] [address] 02/01/25Team MemberRelationshipSpecialtyStart DateEnd Date Champ Bell MD [address] [place] [address] PCP - GeneralInternal Medicine03/18/23 Champ Bell MD [address] [place] [address] PCP - [facility]01/09/24 Lesa Browne LPN [address] [place] [address] 02/01/25Team MemberRelationshipSpecialtyStart DateEnd Date Champ Bell MD [address] [place] [address] PCP - GeneralInternal Medicine03/18/23 Champ Bell MD [address] [place] [address] PCP - [facility]01/09/24 Lesa Browne LPN [address] [place] [address] 02/01/25 Team Status: Inactive Member Role Status Dates Champ Bell II MD Primary Care Provider Active Start: July 19, 2025 End: July 19, 2025Santo Guo ProviderActiveStart: July 19, 2025 End: July 19, 2025Team MemberRelationshipSpecialtyStart DateEnd Date Champ Bell MD [address] [place] [address] PCP - GeneralInternal Medicine03/18/23 Champ Bell MD [address] [place] [address] PCP - [facility]01/09/24 Lesa Browne LPN [address] [place] [address] 02/01/25Team MemberRelationshipSpecialtyStart DateEnd Date Champ Bell MD [address] [place] [address] PCP - GeneralInternal Medicine03/18/23 Champ Bell MD [address] [place] [address] PCP - [facility]01/09/24 Lesa Browne LPN [address] [place] [address] 02/01/25 Team Status: Inactive Member Role Status Dates Champ Bell II MD Primary Care Provider Active Start: July 22, 2025 End: July 22, 2025Santo Guo ProviderActiveStart: July 22, 2025 End: July 22, 2025Team MemberRelationshipSpecialtyStart DateEnd Date Champ Bell MD [address] [place] [address] PCP - GeneralInternal Medicine03/18/23 Champ Bell MD [address] [place] [address] PCP - [facility]01/09/24 Lesa Browne LPN [address] [place] [address] 02/01/25Team MemberRelationshipSpecialtyStart DateEnd Date Champ Bell MD [address] [place] [address] PCP - GeneralInternal Medicine03/18/23 Champ Bell MD [address] [place] [address] PCP - [facility]01/09/24FridayMagalie LPN [address] [place] [address] Licensed Practical NurseFamily Medicine/06/03 Lauren Finn, WARD [address] [place] [address] Licensed Practical NurseFamily Medicine/ Lesa Browne LPN [address] [place] [address] 02/01/25Team MemberRelationshipSpecialtyStart DateEnd Date Champ Bell MD [address] [place] [address] PCP - GeneralInternal Medicine03/18/23 Champ Bell MD [address] [place] [address] PCP - [facility]01/09/24FridayMagalie LPN [address] [place] [address] Licensed Practical NurseFamily Medicine/06/03 Lauren Finn, WARD [address] [place] [address] Licensed Practical NurseFamily Medicine Lesa Browne LPN [address] [place] [address] 02/01/25Team MemberRelationshipSpecialtyStart DateEnd Date Champ Bell MD [address] [place] [address] PCP - GeneralInternal Medicine03/18/23 Champ Bell MD [address] [place] [address] PCP - [facility]01/09/24 Lesa Browne LPN [address] [place] [address] 02/01/25 Goals (unrecognized section and content) Goals [...] 1745 * 1852 (Given - Provider: Ana Guileln, WARD) * 2100 (Due - Provider: Mariely [...] 41 to 70 mg/dL, Starting on Fri06/21/24 [id number], May repeat until blood glucose level reaches [...] for sedation) * 1637 (Given - Provider: Rdorigo Chaparro RN - Comment: for sedation) oxyCODONE-acetaminophen [...] or prosecute any alcohol or drug abuse patient.[facility] FOR RECORDS PERTAINING TO PATIENTS WHO [...] BE BASED ON THE PRIMARY CLINICAL RECORDS. [facility]. provides no warranty or guarantee of the accuracy or completeness of information in this document.
--- NOTE | 2025-11-14 11:33 | CM.DCFOLLOWU ---
Person spoke with:Diann How are you feeling? Much better How is your pain? No pain Did you understand your discharge instructions? Yes Do you have any questions about your discharge instructions? No Were you given any prescriptions at discharge? Yes Were you able to get your prescriptions filled? Yes Do you understand how to take your medications as ordered? Yes Do you have any questions about your follow up appointment and do you plan to keep your follow up appointment? No questions. The patient was notified of her follow up appt with Dr Bell on 11/15 at 10:30 am and her follow up appt with [facility] cardiology on 11/23 at 2:20 pm. Is there anything else that you would like to discuss? No Questions/Comments/Concerns/Other:
== END 2025-11-09 15:06 | disposition home or self-care (01) | DRG 291 ==
LOC: ER 02:53 → MS 05:03
PROVIDERS: Internal Medicine; Admitting Provider Student in an Organized Health Care Education/Training Program; Emergency Provider Emergency Medicine; PCP Internal Medicine; Visit Provider Student in an Organized Health Care Education/Training Program
DX: I11.0 Hypertensive heart disease with heart failure (principal); I50.33 Acute on chronic diastolic (congestive) heart failure; J96.01 Acute respiratory failure with hypoxia; I16.1 Hypertensive emergency; I48.0 Paroxysmal atrial fibrillation; J44.9 Chronic obstructive pulmonary disease, unspecified; I25.10 Atherosclerotic heart disease of native coronary artery without angina pectoris; E11.51 Type 2 diabetes mellitus with diabetic peripheral angiopathy without gangrene; E78.5 Hyperlipidemia, unspecified; Z95.1 Presence of aortocoronary bypass graft; Z79.01 Long term (current) use of anticoagulants; Z79.899 Other long term (current) drug therapy
CPT/HCPCS: 36415; 71045; 80048; 80053; 80061; 82948; 83036; 83605; 83880; 84443; 84484; 85007; 85025; 85027; 87040; 87804; 87811; 90662; 93005; 93306; 94640; 94761; 96365; 96375; 99285; J1920; J1938; J2919